=== PATIENT | male | born 1960 | race Caucasian/White ===

== ENCOUNTER 2019-11-30 14:57 | Emergency (ER) | payer OTHER ==
[2019-11-30] MEDS ORDERED: LIDOCAINE 1% MPF 5 ML VIAL ONE (15:21)
[2019-11-30] MEDS ORDERED: BUPIVACAINE 0.5% PF 10 ML VIAL ONE (15:21)
[2019-11-30] MEDS ORDERED: TETANUS & DIPHTHERIA TOX,ADULT 0.5 ML VIAL ONE (15:22)
--- NOTE | 2019-11-30 16:25 | ER ---
Nurse's Notes [facility] Name: Mathew Porter Age: 59 yrs Sex: Male : 1960 Arrival Date: 11/30/2019 Time: 14:58 Bed 4 Private MD: Diagnosis: Laceration without foreign body of left thumb without damage to nail Presentation: 11/29 15:04 Chief complaint: Patient states: Laceration to left thumb while pushing trash down into ll1 trash bag just [employer]. Unknown object that cut him. Bleeding controlled. Coronavirus screen: Client denies travel out of the [place] in the last 14 days. At this time, the client does not indicate any symptoms associated with coronavirus-19. Ebola Screen: Patient denies travel to an Ebola-affected area in the 21 days before illness onset. Initial Sepsis Screen: Does the patient meet any 2 criteria? No. Patient's initial sepsis screen is negative. Risk Assessment: Do you want to hurt yourself or someone else? Patient reports no desire to harm self or others. Onset of symptoms was November 30, 2019. 15:04 Method Of Arrival: Ambulatory ll1 15:04 Acuity: JAMILA 4 ll1 Historical: - Allergies: 15:05 No Known Allergies; ll1 - PMHx: 15:05 Schizophrenia; ll1 - PSHx: 15:05 None; ll1 - Immunization history:: Last tetanus immunization: unknown. - Social history:: Smoking status: Patient reports the use of cigarette tobacco products, smokes three packs cigarettes per day. Patient/guardian denies using alcohol, street drugs. Screenin:17 Abuse screen: Denies threats or abuse. Nutritional screening: No deficits noted. em Tuberculosis screening: No symptoms or risk factors identified. Fall Risk None identified. Assessment: 15:07 General: Appears in no apparent distress. comfortable, Behavior is calm, cooperative, em appropriate for age. Pain: Complains of pain in palmar aspect of proximal phalanx of left thumb and Left first web space Pain currently is 5 out of 10 on a pain scale. Pain began 30 min ago. Neuro: Level of Consciousness is awake, alert, obeys commands, Oriented to person, place, time, situation, Appropriate for age. Cardiovascular: Capillary refill < 3 seconds Patient's skin is warm and dry. Respiratory: Airway is patent Respiratory effort is even, unlabored, Respiratory pattern is regular, symmetrical. Derm: Skin is intact, is healthy with good turgor, Skin is pink, warm \T\ dry. Musculoskeletal: Capillary refill < 3 seconds, Range of motion: intact in all extremities. Injury Description: Laceration sustained to palmar aspect of proximal phalanx of left thumb and Left first web space is 0.5 to 2.5 cm long, bleeding moderately, was sustained 30-60 minutes ago. a small amount of bleeding noted at this time. Vital Signs: 15:04 BP 178 / 111; Pulse 85; Resp 18; Temp 98.9; Pulse Ox 99% ; Pain 5/10; ll1 ED Course: 14:58 Patient arrived in ED. ag5 15:00 Brit Zapata [facility]-C [facility]. kb 15:01 Karsten Coles MD is Attending Physician. kb 15:04 Michael Chahal, RN is Primary Nurse. em 15:05 Triage completed. ll1 15:05 Arm band placed on Patient placed in an exam room, on a stretcher. ll1 15:17 Patient has correct armband on for positive identification. Bed in low position. Call em light in reach. 16:26 No provider procedures requiring assistance completed. Patient did not have IV access em during this emergency room visit. 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 Exp: em 05/21/2021. Lot #: [id number]. } Route: IM; Site: right deltoid; 16:23 Follow up: Response: No adverse reaction em 15:50 Drug: Lidocaine (1 %) 1 vials {Note: administered by MARLENA Perea.} Volume: 5 ml; Route: em Infiltration; Site: wound; 16:00 Follow up: Response: No adverse reaction; Marked relief of symptoms; Pain is decreased em 15:50 Drug: Bupivacaine (0.5 %) 1 vials {Note: administered by MARLENA Perea.} Volume: 10 ml; em Route: Infiltration; Site: wound; 16:00 Follow up: Response: No adverse reaction; Marked relief of symptoms; Pain is decreased em Outcome: 16:24 Discharge ordered by . kb 16:26 Discharged to home ambulatory. em 16:26 Condition: good 16:26 Discharge instructions given to patient, Instructed on discharge instructions, follow up and referral plans. wound care, Demonstrated understanding of instructions, follow-up care, wound care. 16:42 Patient left the ED. em Signatures: Brit Zapata, VANDANA-Rm ROSS-Michael Duvall, RN RN em Maria A Pitts ag5 Brandt Stout RN RN ll1
--- NOTE | 2019-11-30 16:25 | EDPHYS ---
Physician Documentation [facility] Name: Mathew Porter Age: 59 yrs Sex: Male : 1960 Arrival Date: 11/30/2019 Time: 14:58 Bed 4 Private MD: ED Physician Karsten Coles HPI: 11/29 15:22 This 59 yrs old Male presents to ER via Ambulatory with complaints of kb Laceration To Finger. 15:22 The patient has a laceration related to: handling garbage, occurred at home, and there kb are no complicating factors. The injury was accidental. The laceration(s) is(are) located on the left thumb. Onset: The symptoms/episode began/occurred just prior to arrival. Associated signs and symptoms: The patient has no apparent associated signs or symptoms. The patient has not experienced similar symptoms in the past. The patient has not recently seen a physician. Pt reports he was taking out the trash, pushed it down into the can and cut his finger on something inside. Object unknown. Historical: - Allergies: 15:05 No Known Allergies; ll1 - PMHx: 15:05 Schizophrenia; ll1 - PSHx: 15:05 None; ll1 - Immunization history:: Last tetanus immunization: unknown. - Social history:: Smoking status: Patient reports the use of cigarette tobacco products, smokes three packs cigarettes per day. Patient/guardian denies using alcohol, street drugs. ROS: 15:21 Constitutional: Negative for fever, chills, and weight loss, Cardiovascular: Negative kb for chest pain, palpitations, and edema, Respiratory: Negative for shortness of breath, cough, wheezing, and pleuritic chest pain, Abdomen/GI: Negative for abdominal pain, nausea, vomiting, diarrhea, and constipation, Back: Negative for injury and pain, MS/Extremity: Negative for injury and deformity, Neuro: Negative for headache, weakness, numbness, tingling, and seizure. 15:21 Skin: Positive for laceration(s), of the left thumb. Exam: 15:21 Constitutional: This is a well developed, well nourished patient who is awake, alert, kb and in no acute distress. Head/Face: Normocephalic, atraumatic. Chest/axilla: Normal chest wall appearance and motion. Nontender with no deformity. No lesions are appreciated. Cardiovascular: Regular rate and rhythm with a normal S1 and S2. No gallops, murmurs, or rubs. Normal PMI, no JVD. No pulse deficits. Respiratory: Lungs have equal breath sounds bilaterally, clear to auscultation and percussion. No rales, rhonchi or wheezes noted. No increased work of breathing, no retractions or nasal flaring. Abdomen/GI: Soft, non-tender, with normal bowel sounds. No distension or tympany. No guarding or rebound. No evidence of tenderness throughout. MS/ Extremity: Pulses equal, no cyanosis. Neurovascular intact. Full, normal range of motion. Neuro: Awake and alert, GCS 15, oriented to person, place, time, and situation. Cranial nerves II-XII grossly intact. Motor strength 5/5 in all extremities. Sensory grossly intact. Cerebellar exam normal. Normal gait. Vital Signs: 15:04 BP 178 / 111; Pulse 85; Resp 18; Temp 98.9; Pulse Ox 99% ; Pain 5/10; ll1 Procedures: 15:50 Nerve block: (digital) of palmar aspect of proximal phalanx of left thumb Medication: kb Lidocaine 1% without epinephrine Marcaine 0.5%, Amount: 6 mls were injected, Effect: the patient has resolution of the pain, Set up for procedure. Performed by Brit UNDERWOOD Patient tolerated well. Laceration: 16:22 Wound Repair of 2cm ( 0.8in ) subcutaneous laceration to left thumb. Irregularly kb shaped.. Distal neuro/vascular/tendon intact. Anesthesia: Digital block administered with Lido/Marcaine. Wound prep: Extensive cleansing with betadine by me, Wound irrigation with saline by sd. Skin closed with 4 5-0 Prolene using simple sutures and sterile technique. Dressed with pressure dressing. Patient tolerated well. MDM: 15:03 Patient medically screened. kb 15:21 Data reviewed: vital signs, nurses notes. Data interpreted: Pulse oximetry: on room air kb is 99 %. Interpretation: normal. 16:22 Counseling: I had a detailed discussion with the patient and/or guardian regarding: the kb historical points, exam findings, and any diagnostic results supporting the discharge/admit diagnosis, the need for outpatient follow up, a family practitioner, to return to the emergency department if symptoms worsen or persist or if there are any questions or concerns that arise at home. 11/29 15:06 Order name: Prolene, Sutures; Complete Time: 16:23 kb 11/29 15:06 Order name: Dressing - Wound; Complete Time: 16:23 kb 11/29 15:06 Order name: Gloves, Sterile; Complete Time: 16:23 kb 11/29 15:06 Order name: Setup Suture Tray; Complete Time: 15:16 kb Administered Medications: 15:16 Drug: Tetanus-Diphtheria Toxoid Adult 0.5 ml {Family Assistant: [employer]. Exp: em 05/21/2021. Lot #: [id number]. } Route: IM; Site: right deltoid; 16:23 Follow up: Response: No adverse reaction em 15:50 Drug: Lidocaine (1 %) 1 vials {Note: administered by MARLENA Perea.} Volume: 5 ml; Route: em Infiltration; Site: wound; 16:00 Follow up: Response: No adverse reaction; Marked relief of symptoms; Pain is decreased em 15:50 Drug: Bupivacaine (0.5 %) 1 vials {Note: administered by NP. Brit} Volume: 10 ml; em Route: Infiltration; Site: wound; 16:00 Follow up: Response: No adverse reaction; Marked relief of symptoms; Pain is decreased em Disposition: 19:45 Co-signature as Attending Physician, Karsten Coles MD I agree with the assessment and genna plan of care. Disposition: 11/30/19 16:24 Discharged to Home. Impression: Laceration without foreign body of left thumb without damage to nail. - Condition is Stable. - Discharge Instructions: Laceration Care, Adult, [id number]. - Medication Reconciliation Form, Thank You Letter, Antibiotic Education, Prescription Opioid Use form. - Follow up: Emergency Department; When: As needed; Reason: Worsening of condition. Follow up: Private Physician; When: 2 - 3 days; Reason: Recheck today's complaints, Continuance of care, Re-evaluation by your physician. - Notes: Keep dressing on until tomorrow evening, then take off and use bandaid to cover laceration. Wash with soap and water to prevent infection Watch for signs of infection including redness, swelling, drainage, and warmth Keep clean and dry Signatures: Brit Zapata FNP-C FNP-Karsten Salter MD MD cha Munoz, Edgar, RN RN em Brandt Stout RN RN ll1 Corrections: (The following items were deleted from the chart) 16:42 16:24 11/30/2019 16:24 Discharged to Home. Impression: Laceration without foreign body em of left thumb without damage to nail. Condition is Stable. Forms are Medication Reconciliation Form, Thank You Letter, Antibiotic Education, Prescription Opioid Use. Follow up: Emergency Department; When: As needed; Reason: Worsening of condition. Follow up: Private Physician; When: 2 - 3 days; Reason: Recheck today's complaints, Continuance of care, Re-evaluation by your physician. kb
[2019-12-04 15:26] VITALS: BP 178/111; TEMP 98.9; O2SAT 99
== END 2019-11-30 16:42 | disposition home or self-care (01) ==
LOC: ER 14:57
PROC: 0JQK0ZZ Repair Left Hand Subcutaneous Tissue and Fascia, Open Approach (ICD-10-PCS; principal; 2019-11-30)
DX: S61.012A Laceration without foreign body of left thumb without damage to nail, initial encounter (principal); W26.9XXA Contact with unspecified sharp object(s), initial encounter; Y93.89 Activity, other specified; Y92.009 Unspecified place in unspecified non-institutional (private) residence as the place of occurrence of the external cause; Z23 Encounter for immunization
CPT/HCPCS: 64450; 90471; 90714; 99283

== ENCOUNTER 2019-12-14 12:24 | Emergency (ER) | payer OTHER ==
--- NOTE | 2019-12-14 13:02 | ER ---
Nurse's Notes [facility] Name: Mathew Porter Age: 59 yrs Sex: Male : 1960 Arrival Date: 12/14/2019 Time: 12:26 Bed 23 Private MD: Diagnosis: Encounter for removal of sutures-left thumb Presentation: 12/13 12:47 Chief complaint: Patient states: Need stitches removed from left thumb. No redness, ll1 swelling, or fever. Coronavirus screen: Client denies travel out of the [place] in the last 14 days. At this time, the client does not indicate any symptoms associated with coronavirus-19. Ebola Screen: Patient denies travel to an Ebola-affected area in the 21 days before illness onset. Initial Sepsis Screen: Does the patient meet any 2 criteria? No. Patient's initial sepsis screen is negative. Risk Assessment: Do you want to hurt yourself or someone else? Patient reports no desire to harm self or others. Onset of symptoms was November 30, 2019. 12:47 Method Of Arrival: Ambulatory ll1 12:47 Acuity: JAMILA 5 ll1 Historical: - Allergies: 12:46 No Known Allergies; ll1 - PMHx: 12:46 Schizophrenia; ll1 - PSHx: 12:46 None; ll1 - Immunization history:: Flu vaccine is not up to date. - Social history:: Smoking status: Patient reports the use of cigarette tobacco products, smokes one pack cigarettes per day. Patient/guardian denies using alcohol, street drugs. Screenin:52 Abuse screen: Denies threats or abuse. Denies injuries from another. Nutritional hb screening: No deficits noted. Tuberculosis screening: No symptoms or risk factors identified. Fall Risk None identified. Vital Signs: 12:47 BP 161 / 94; Pulse 75; Resp 17; Temp 98.5; Pulse Ox 100% ; Pain 2/10; ll1 ED Course: 12:26 Patient arrived in ED. ds1 12:46 Arm band placed on Patient placed in an exam room, on a stretcher. ll1 12:48 Triage completed. ll1 12:49 Karsten Whitehead PA is PHCP. cp 12:49 Octavio Perez MD is Attending Physician. cp 12:52 Patient has correct armband on for positive identification. Bed in low position. Call hb light in reach. 12:52 Patient did not have IV access during this emergency room visit. hb Administered Medications: No medications were administered Outcome: 13:01 Discharge ordered by . holger 13:24 Patient left the ED. ll1 Signatures: Deanna Woods ds1 Karsten Whitehead PA PA cp Baxter, Heather, RN RN Brandt Stout RN RN ll1
[2019-12-14 18:12] VITALS: BP 161/94; TEMP 98.5; O2SAT 100
--- NOTE | 2019-12-15 13:29 | EDPHYS ---
Physician Documentation [facility] Name: Mathew Porter Age: 59 yrs Sex: Male : 1960 Arrival Date: 12/14/2019 Time: 12:26 Bed 23 Private MD: ED Physician Octavio Perez HPI: 12/13 13:00 This 59 yrs old Male presents to ER via Ambulatory with complaints of Suture cp Removal. 13:00 The patient has sutures on the holt side left thumb. cp 13:00 Previous treatment: The patient was initially treated on November 30, 2019, the care was cp rendered at [facility], Treatment type: The patient's original treatment included sutures. 13:00 Sutures/attila progress: The patient has no c/o's. The wound is well-healing with no cp redness, swelling, discharge, or dehiscence reported. Historical: - Allergies: 12:46 No Known Allergies; ll1 - PMHx: 12:46 Schizophrenia; ll1 - PSHx: 12:46 None; ll1 - Immunization history:: Flu vaccine is not up to date. - Social history:: Smoking status: Patient reports the use of cigarette tobacco products, smokes one pack cigarettes per day. Patient/guardian denies using alcohol, street drugs. ROS: 13:00 All other systems are negative. cp Exam: 13:00 Constitutional: The patient appears in no acute distress, alert, awake, well developed, cp well nourished. 13:00 Cardiovascular: Rate: normal. cp 13:00 Respiratory: the patient does not display signs of respiratory distress, Respirations: normal. 13:00 Skin: Wound recheck: Suture laceration closure: the wound is healing well, the edges are well approximated, no drainage, no erythema, no swelling, mild dehiscence, repaired laceration left thumb holt side. Vital Signs: 12:47 BP 161 / 94; Pulse 75; Resp 17; Temp 98.5; Pulse Ox 100% ; Pain 2/10; ll1 Procedures: 13:05 Suture/Staple removal: Removed 4 sutures, from holt side left thumb, site appears cp well healed, Patient tolerated well. MDM: 13:00 Patient medically screened. cp Administered Medications: No medications were administered Disposition: 16:09 Co-signature as Attending Physician, Octavio Perez MD. rn Disposition: 12/14/19 13:01 Discharged to Home. Impression: Encounter for removal of sutures - left thumb. - Condition is Stable. - Discharge Instructions: Suture Removal, Care After. - Medication Reconciliation Form, Thank You Letter, Antibiotic Education, Prescription Opioid Use form. - Follow up: Private Physician; When: As needed; Reason: Worsening of condition. - Problem is new. - Symptoms have improved. Signatures: Octavio Perez MD MD rn Karsten Whitehead PA PA cp Lewis, Lynsay, RN RN ll1 Corrections: (The following items were deleted from the chart) 13:24 13:01 12/14/2019 13:01 Discharged to Home. Impression: Encounter for removal of sutures ll1 - left thumb. Condition is Stable. Forms are Medication Reconciliation Form, Thank You Letter, Antibiotic Education, Prescription Opioid Use. Follow up: Private Physician; When: As needed; Reason: Worsening of condition. Problem is new. Symptoms have improved. cp
== END 2019-12-14 13:24 | disposition home or self-care (01) ==
LOC: ER 12:24
DX: Z48.02 Encounter for removal of sutures (principal)
CPT/HCPCS: 99281

== ENCOUNTER 2022-10-15 20:04 | Emergency (ER) | payer OTHER ==
[2022-10-15 20:51] LABS: Absolute Lymphocytes (CBC) 0.6 K/uL (0.7-4.9); Hematocrit 37.4 % (39.6-49.0); Lymphocytes % 3.6 % (15.3-44.8); MCV 85.3 fL (80-100); RBC Red Blood Cell Count 4.38 M/uL (4.33-5.43)
[2022-10-15 21:02] LABS: Specific Gravity 1.016 (1.005-1.030); Urine Bacteria 20-50 /HPF (<20); Urine Bilirubin NEGATIVE (Negative); Urine Blood 1+ (Negative); Urine Clarity Extremely Turbid (Clear); Urine Color Yellow (Yellow); Urine Crystals Unidentified Few /HPF (None Seen); Urine Glucose NEGATIVE (Negative); Urine Mucus Slight /HPF (None Seen); Urine Protein 1+ (Negative); Urine Urobilinogen Normal (Normal); Urine WBC Clump Rare /HPF (None Seen)
[2022-10-15 21:12] LABS: Albumin 2.8 g/dL (3.4-5.0); Bilirubin Total 0.8 mg/dL (0.2-1.0); Potassium 4.1 mEq/L (3.5-5.1); Protein, Total 7.1 g/dL (6.4-8.2)
[2022-10-15 21:14] LABS: Protime INR 1.12
--- NOTE | 2022-10-15 21:51 | RAD REPORT ---
EXAM DESCRIPTION: CT - Chest Abd Pelvis Wo Con - 10/15/2022 9:20 pm CLINICAL HISTORY: sob, abdominal pain COMPARISON: No comparisons TECHNIQUE: Thin axial CT images of the chest, abdomen, and pelvis, performed without IV contrast. Mu ltiplanar reformats were generated and reviewed. All CT scans are performed using dose optimization technique as appropriate and may include automated exposure control or mA/KV adjustment according to patient size. FINDINGS: The lungs are clear.No pleural effusion or pneumothorax. Trace pericardial effusion.No int rathoracic adenopathy. The liver, spleen, pancreas, and adrenal glands are within normal limits. Layering hyperdense materi al in the gallbladder, may represent small stones. Severe bilateral hydroureteronephrosis. Tortuous appearance of the left proximal to mid ureter, with fluid tracking along the left perinephric space and tracking caudally along the left aspect of the re troperitoneum and paracolic gutter. No evidence of radiopaque calculi. Tiny punctate mineralization a long the right renal midpole. Severe distention of the urinary bladder. Marked prostatomegaly. No bowel obstruction, free air, free fluid or abscess. Mild wall prominence along the cecum, could re flect segmental colitis. Moderate hiatal hernia. No pathologic lymphadenopathy in the abdomen or pel vis. No worrisome osseous finding. IMPRESSION: Severe bilateral hydroureteronephrosis and marked bladder distention. Fluid tracking liam ng the left retroperitoneum, concerning for a urine leak in the setting of rupture of the left renal collecting system. Marked prostatomegaly. Mild wall prominence along the cecum, could reflect segmental colitis. Other incidental findings including trace pericardial effusion, marked prostatomegaly, and suggestion of small gallstones. The findings were communicated to Jaylen Chi on 10/15/2022 at 21:43 hours.
[2022-10-15] MEDS ORDERED: CEFEPIME 2 GM VIAL ONE (22:09)
[2022-10-15] MEDS ORDERED: NA CHLORIDE 0.9% 100 ML ONE (22:10)
[2022-10-15] MEDS ORDERED: ACETAMINOPHEN 325 MG TABLET ONE (22:10)
[2022-10-16] MEDS ORDERED: NA CHLORIDE 0.9% 1,000 ML ONE (00:09)
[2022-10-16] MEDS ORDERED: D5 0.9 NS 1,000 ML IV ONE (00:09)
--- NOTE | 2022-10-16 01:33 | ER ---
Nurse's Notes [facility] Name: Mathew Porter Age: 62 yrs Sex: Male : 1960 Arrival Date: 10/15/2022 Time: 20:04 Bed 15 Private MD: Diagnosis: Acute renal failure;Ureteral rupture;Post renal obstructive kidney failure Presentation: 10/15 20:31 Chief complaint: Patient's son or daughter states: "Started feeling sick on Friday he vc1 was nauseous with no appetite. He came home Friday and still didn't feel well. He's barely eating and today his stomach looks distended.". Coronavirus screen: Vaccine status: Patient reports receiving the 2nd dose of the covid vaccine. Client denies travel out of the [place] in the last 14 days. At this time, the client does not indicate any symptoms associated with coronavirus-19. Ebola Screen: Patient negative for fever greater than or equal to 101.5 degrees Fahrenheit, and additional compatible Ebola Virus Disease symptoms Patient denies exposure to infectious person. Patient denies travel to an Ebola-affected area in the 21 days before illness onset. No symptoms or risks identified at this time. Initial Sepsis Screen: Does the patient meet any 2 criteria? RR > 20 per min. Temp <36.0*C (96.8*F)) or > 38.3*C (100.9*F). HR > 90 bpm. Yes Does the patient have a suspected source of infection? Yes: Acute abdominal pain. Risk Assessment: Do you want to hurt yourself or someone else? Patient reports no desire to harm self or others. Onset of symptoms was October 12, 2022. 20:31 Method Of Arrival: Ambulatory vc1 20:31 Acuity: JAMILA 3 vc1 Triage Assessment: 20:35 General: Appears in no apparent distress. uncomfortable, Behavior is cooperative, flat. vc1 Pain: Complains of pain in abdomen Pain currently is 0 out of 10 on a pain scale. EENT: No deficits noted. No signs and/or symptoms were reported regarding the EENT system. Neuro: Level of Consciousness is awake, alert, obeys commands, Oriented to person, place, time, situation, Appropriate for age. Cardiovascular: No deficits noted. Respiratory: Airway is patent Respiratory effort is even, unlabored, Respiratory pattern is symmetrical, tachypnea. GI: Abdomen is distended, Reports No appetite since Friday, dry heaving. : No deficits noted. No signs and/or symptoms were reported regarding the genitourinary system. Derm: No deficits noted. No signs and/or symptoms reported regarding the dermatologic system. Musculoskeletal: No deficits noted. No signs and/or symptoms reported regarding the musculoskeletal system. Historical: - Allergies: 20:33 No Known Allergies; vc1 - Home Meds: 20:33 Cogentin Oral 1 mg nightly [Active]; Haldol Oral 10 mg twice a day [Active]; vc1 - PMHx: 20:33 Schizophrenia; vc1 - PSHx: 20:33 None; vc1 - Immunization history:: Client reports receiving the 1st dose of the Covid vaccine. - Social history:: Smoking status: Patient reports the use of cigarette tobacco products, smokes two packs cigarettes per day. Screenin:34 [facility] ED Fall Risk Assessment (Adult) History of falling in the last 3 months, vc1 including since admission No falls in past 3 months (0 pts) Confusion or Disorientation No (0 pts) Intoxicated or Sedated No (0 pts) Impaired Gait No (0 pts) Mobility Assist Device Used No (0 pt) Altered Elimination No (0 pt) Score/Fall Risk Level 0 - 2 = Low Risk Oriented to surroundings, Maintained a safe environment, Educated pt \\T\\ family on fall prevention, incl call for assistance when getting out of bed. Abuse screen: Denies threats or abuse. Nutritional screening:. Nutritional screening: no appetite since friday. Tuberculosis screening: No symptoms or risk factors identified. Assessment: 22:29 Reassessment: No changes from previously documented assessment. Patient and/or family ll3 updated on plan of care and expected duration. Pain level reassessed. Patient is alert, oriented x 3, equal unlabored respirations, skin warm/dry/pink. 23:44 Reassessment: No changes from previously documented assessment. Patient and/or family ll3 updated on plan of care and expected duration. Pain level reassessed. Patient is alert, oriented x 3, equal unlabored respirations, skin warm/dry/pink. Vital Signs: 20:31 BP 158 / 102; Pulse 112; Resp 25; Temp 101.2; Pulse Ox 95% ; Weight 68.04 kg; Pain 0/10;vc1 22:29 BP 153 / 80; Pulse 96; Resp 17; Pulse Ox 98% on R/A; ll3 23:44 BP 141 / 79; Pulse 92; Resp 18; Temp 98.9(O); Pulse Ox 98% on R/A; ll3 10/16 01:17 BP 148 / 79; Pulse 90; Resp 17; Pulse Ox 97% on R/A; ll3 10/15 20:31 Pain Scale: Adult vc1 ED Course: 10/15 20:07 Patient arrived in ED. ja2 20:15 Jaylen Chi PA is PHCP. [facility] 20:15 Jovani Reed MD is Attending Physician. [facility] 20:33 Triage completed. vc1 20:34 Arm band placed on right wrist. vc1 20:35 Patient has correct armband on for positive identification. Bed in low position. Call vc1 light in reach. Client placed on continuous cardiac and pulse oximetry monitoring. NIBP monitoring applied. 20:45 Initial lab(s) drawn, by hi, sent to lab. Inserted saline lock: 20 gauge in right ll3 forearm, using aseptic technique. Blood collected. 21:00 No provider procedures requiring assistance completed. Inserted saline lock: 22 gauge ll3 in right forearm, using aseptic technique. 21:21 Chest Abd Pelvis Wo Con In Process Unspecified. EDMS 22:40 Initiated transfer to [facility], denied due to full capacity. 5 22:44 Initiated transfer to [facility] with Gene chief transfer and pumphouse operator. 5 23:10 Transfer denied due to full capacity. [facility] 23:29 Initiated transfer to [facility] with Abril chief transfer and pumphouse operator. [facility] 10/16 00:07 [facility] denied transfer due to capacity. 5 00:25 Transfer Initiated to [facility] with Loida Khan chief transfer and pumphouse operator. 5 01:01 Transfer accepted to [facility] by Dr. Charlie Jones without Dr to Dr report needed. 5 01:25 Requested transport truck from [facility], ETA of 10 min. 5 02:10 Patient transferred, IV remains in place. 3 Administered Medications: 10/15 22:20 Drug: Cefepime IVPB 2 grams Route: IVPB; Rate: 200 ml/hr; Infused Over: 30 mins; Site: [facility] right forearm; 10/16 02:11 Follow up: Response: No adverse reaction; IV Status: Completed infusion; IV Intake: ll3 100ml 10/15 22:20 Drug: Acetaminophen PO 650 mg Route: PO; ll3 10/16 02:11 Follow up: Response: No adverse reaction; Temperature is decreased ll3 00:08 Drug: D5-NS IV 1000 ml Route: IV; Rate: 125 ml/hr; Site: right forearm; ll3 02:11 Follow up: Response: No adverse reaction; IV Status: Infusion continued upon transfer; ll3 IV Intake: 300ml 00:08 Drug: NS 0.9% IV 1000 ml Route: IV; Rate: 1 bolus; Site: right forearm; ll3 02:10 Follow up: Response: No adverse reaction; IV Status: Completed infusion; IV Intake: ll3 1000ml Medication: 10/15 22:29 VIS not applicable for this client. ll3 Intake: 10/16 02:10 IV: 1000ml; Total: 1000ml. ll3 02:11 IV: 300ml; Total: 1300ml. ll3 02:11 IV: 100ml; Total: 1400ml. ll3 Output: 10/15 22:30 Urine: 2425ml ([place]); Total: 2425ml. ll3 07 01:53 Urine: 1200ml ([place]); Total: 3625ml. ll3 Outcome: 01:32 ER care complete, transfer ordered by . [facility] 02:09 Transferred by ground EMS Transfer form completed. X-rays sent w/ patient. Note: [facility] ll3 [place] 02:09 Condition: stable 02:09 Instructed on the need for transfer, Demonstrated understanding of instructions. 02:12 Patient left the ED. ll3 Signatures: Dispatcher [employer] EDMS Jaylen Chi PA PA jmm Alexander, Jessica ja2 Loubet, Lynsea, RN RN ll3 Rose Mary Fishman RN RN 1 Marlene Ronquillo [facility]
--- NOTE | 2022-10-16 01:33 | EDPHYS ---
Physician Documentation [facility] Name: Mathew Porter Age: 62 yrs Sex: Male : 1960 Arrival Date: 10/15/2022 Time: 20:04 Bed 15 Private MD: ED Physician Jovani Reed HPI: 10/15 20:21 This 62 yrs old Male presents to ER via Ambulatory with complaints of Decreased jmm Appetite, Bloated. 20:21 The patient presents with abdominal distention. Onset: The symptoms/episode jmm began/occurred gradually, 4 day(s) ago. This is a 62-year-old male with history of schizophrenia the presents emerged department with complaints of abdominal distention, decreased oral intake. Daughter stated that the patient initially developed symptoms approximately 4 days ago. Patient drank Gatorade. Denies any vomiting or diarrhea. Daughter states today noticed significant swelling of the patient's abdomen.. Historical: - Allergies: 20:33 No Known Allergies; vc1 - Home Meds: 20:33 Cogentin Oral 1 mg nightly [Active]; Haldol Oral 10 mg twice a day [Active]; vc1 - PMHx: 20:33 Schizophrenia; vc1 - PSHx: 20:33 None; vc1 - Immunization history:: Client reports receiving the 1st dose of the Covid vaccine. - Social history:: Smoking status: Patient reports the use of cigarette tobacco products, smokes two packs cigarettes per day. ROS: 20:21 Constitutional: Negative for fever, chills, and weight loss, Cardiovascular: Negative jmm for chest pain, palpitations, and edema, Respiratory: Negative for shortness of breath, cough, wheezing, and pleuritic chest pain. 20:21 Abdomen/GI: Positive for abdominal pain. 20:21 All other systems are negative. Exam: 20:21 Constitutional: This is a well developed, well nourished patient who is awake, alert, jmm and in no acute distress. Head/Face: atraumatic. Eyes: EOMI, no conjunctival erythema appreciated ENT: Moist Mucus Membranes Neck: Trachea midline, Supple Chest/axilla: Normal chest wall appearance and motion. Cardiovascular: Regular rate and rhythm. No edema appreciated Respiratory: Normal respirations, no respiratory distress appreciated 20:21 Back: Normal ROM Skin: General appearance color normal MS/ Extremity: Moves all extremities, no obvious deformities appreciated, no edema noted to the lower extremities Neuro: Awake and alert Psych: Behavior is normal, Mood is normal, Patient is cooperative and pleasant 20:21 Abdomen/GI: Inspection: distension, that is moderate. Vital Signs: 20:31 BP 158 / 102; Pulse 112; Resp 25; Temp 101.2; Pulse Ox 95% ; Weight 68.04 kg; Pain 0/10;vc1 22:29 BP 153 / 80; Pulse 96; Resp 17; Pulse Ox 98% on R/A; ll3 23:44 BP 141 / 79; Pulse 92; Resp 18; Temp 98.9(O); Pulse Ox 98% on R/A; 3 10/16 01:17 BP 148 / 79; Pulse 90; Resp 17; Pulse Ox 97% on R/A; 3 10/15 20:31 Pain Scale: Adult vc1 MDM: 10/15 20:21 Patient medically screened. [facility] 20:21 Differential diagnosis: bowel obstruction, Mesenteric ischemia or infarction, [facility] non-specific abd pain, Perf. Duodenal Ulcer, Perf. Gastric Ulcer, Ureterolithiasis. Data reviewed: vital signs, nurses notes. 10/16 01:28 Counseling: I had a detailed discussion with the patient and/or guardian regarding: the [facility] historical points, exam findings, and any diagnostic results supporting the discharge/admit diagnosis, lab results, radiology results, the need to transfer to another facility. ED course: Dr. Reed evaluated the patient. Inserted johns catheter. Recommended transfer due to concerns for ruptured ureter. Patient was initially declined from [facility] due to capacity. Patient was accepted at [facility]. . 10/15 20:23 Order name: CBC with Diff; Complete Time: 21:17 [facility] 10/15 20:23 Order name: CMP; Complete Time: 21:17 [facility] 10/15 20:23 Order name: Lipase; Complete Time: 21:17 [facility] 10/15 20:23 Order name: Urinalysis w/ reflexes; Complete Time: 21:17 [facility] 10/15 20:30 Order name: Lactate w/ 2H reflex if indic.; Complete Time: 21:21 [facility] 10/15 20:30 Order name: Blood Culture Adult (2) [facility] 10/15 20:36 Order name: PT-INR; Complete Time: 21:17 [facility] 10/15 21:05 Order name: Urine Culture [facility] 10/15 23:38 Order name: CREATININE WHOLE BLOOD; Complete Time: 23:39 [facility] 10/15 21:21 Order name: Chest Abd Pelvis Wo Con; Complete Time: 21:52 [facility] 10/15 20:23 Order name: IV Saline Lock; Complete Time: 20:44 [facility] 10/15 20:23 Order name: Labs collected and sent; Complete Time: 20:52 [facility] 10/15 21:43 Order name: Johns; Complete Time: 21:50 [facility] Administered Medications: 10/15 22:20 Drug: Cefepime IVPB 2 grams Route: IVPB; Rate: 200 ml/hr; Infused Over: 30 mins; Site: ll3 right forearm; 10/16 02:11 Follow up: Response: No adverse reaction; IV Status: Completed infusion; IV Intake: ll3 100ml 10/15 22:20 Drug: Acetaminophen PO 650 mg Route: PO; ll3 10/16 02:11 Follow up: Response: No adverse reaction; Temperature is decreased ll3 00:08 Drug: D5-NS IV 1000 ml Route: IV; Rate: 125 ml/hr; Site: right forearm; ll3 02:11 Follow up: Response: No adverse reaction; IV Status: Infusion continued upon transfer; ll3 IV Intake: 300ml 00:08 Drug: NS 0.9% IV 1000 ml Route: IV; Rate: 1 bolus; Site: right forearm; ll3 02:10 Follow up: Response: No adverse reaction; IV Status: Completed infusion; IV Intake: ll3 1000ml Disposition: 02:13 Co-signature as Attending Physician, Jovani Reed MD I agree with the assessment sp4 and plan of care. I reviewed the patient's care provided by the Advanced Practice Provider and agree with the diagnosis and treatment plan. Disposition Summary: 10/16/22 01:32 Transfer Ordered Transfer Location: Other Acute Care Facility [facility] Reason: Higher level of care jmm Condition: Stable jmm Problem: new jmm Symptoms: have improved jmm Accepting Physician: Urology(10/16/22 02:12) ll3 Diagnosis - Acute renal failure jmm - Postobstructive diuresis jmm - Ureteral rupture jmm - Post renal obstructive kidney failure jmm Discharge Instructions: - Discharge Summary Sheet ll3 Forms: - Medication Reconciliation Form [facility] - SBAR form ll3 Signatures: Dispatcher [employer] EDVA Jaylen Chi PA PA jmm Loubet, Lynsea, RN RN ll3 Rose Mary Fishman RN RN vc1 Jovani Reed MD MD sp4 Corrections: (The following items were deleted from the chart) 10/15 20:35 20:23 Abdomen Pelvis W Con+CT.RAD.BRZ ordered. [facility] 21:21 20:30 Chest Abdomen Pelvis W Con+CT.RAD.BRZ ordered. [facility] 10/16 01:33 01:32 Urology [facility] 02:12 01:33 Urology [facility]3
[2022-10-16 02:38] VITALS: TEMP 98.9
[2022-10-16 02:42] VITALS: BP 148/79; O2SAT 97
== END 2022-10-16 02:12 ==
LOC: ER 20:04
DX: N17.9 Acute kidney failure, unspecified (principal); R35.89 Other polyuria; S37.19XA Other injury of ureter, initial encounter; N13.9 Obstructive and reflux uropathy, unspecified; F17.210 Nicotine dependence, cigarettes, uncomplicated; F20.9 Schizophrenia, unspecified
CPT/HCPCS: 87040 ×2; 87088; 85025; 81001; 87086; 36415; 87205; 85610; 82565; 83605; 83690; 80053; 71250; 74176; J0692; J7042; J7030

== ENCOUNTER 2022-11-08 17:50 | Emergency (ER) | payer OTHER ==
--- OUTSIDE RECORDS SUMMARY | 2022-11-08 17:56 | XMS REPORT | Continuity of Care Document ---
:1960 Author Organization [facility] t Address [address] [facility] [address] [place] [address] Care Team Providers Name Role Phone Salinas Alba I Attending Clinician Unavailable Salinas Alba I Admitting Clinician Unavailable Physician, No Primary or Family Admitting Clinician Unavaila ble Payers Payer Name Policy Type Policy Number Effective Date Expiration Date S ource Problems This patient has no known problems. Allergies, Adverse Reactions, Alerts Allergy Allergy Status Severity Reaction(s) Onset Inactive Treating Comm ents Source Name Type Date Date Clinician No Known DA Active [facility] [place] [facility] 00 [facility] Medications This patient has no known medications. Procedures This patient has no known procedures. Encounters Start End Encounter Admission Attending Care Care Encounter Source Date/Time Date/Time Type Type Clinicians Facility Department ID 2022-10-16 2022-10-26 Inpatient EM Fernanda [facility] MEDI.01 [id number] 90 [facility] 05:03:00 19:41:00 Salinas Dukes 28 Cl [facility] Results Test Description Test Time Test Comments Results Result Comments Source BASIC METABOLIC PANEL 2022-10-31 08:30:00 Test Item Value Reference Range Interpretation Comme nts SODIUM (test code = NA) 140 mEq/L 134-147 N POTASSIUM (test code = K) 2.8 mEq/L 3.4-5.0 LL Cr itical [place] [address]/16/22Nurse r ead back resut and tech confirmed it's correct? Y CHLORIDE (test code = CL) 114 mEq/L 100-108 H CARBON DIOXIDE (test code = 18 mEq/l 21-33 L CO2) ANION GAP (test code = GAP) 11 0-20 N GLUCOSE (test code = GLU) 643 mg/dL 70-110 HH Cr [place] [address]/16[place]22[facility] [place] tech confirmed it's correct? Y BLOOD UREA NITROGEN (test code 41 mg/dL 7-18 H = BUN) GLOMERULAR FILTRATION RATE 34.7 80-90 L T he Glomerular Filtration Rate is (test code = GFR) a calculat ed parameterbased on serum Creatinin e, patient age and sex. GFR values less than 60 mL/min/1.73 squ are meters are indicative ofCh ronic Kidney Disease. Values less than 15 mL/min/1.73squa re meters indicate Kidney failure. The calculation forGFR is based on the CKD-EPI (2020) calculat ion. This formulais race indifferent and is the recommended formula for GFRby the National dney Foundation for Adults.The GFR will not calculate if th e sex is unknown or if thepatien t's age is <18 years. CREATININE (test code = CREAT) 2.1 mg/dL 0.6-1.3 H CALCIUM (test code = CA) 4.9 mg/dL 8.0-10.5 LL Cri [place]ical [place] [address]/16/22 r ead back result and tech confir med it's correct? YPreviously rep orted result: 4.9 mg/dLEdited by: KRISTEN on 10/31/22:[id number] 0829: CA previously repo rted as: 4.9 *L mg/dL Critical result [place] [address]/16/22 Nurse read back result and tech confirmed it's correct? Y GLUCOSE [id number] 17:27:00 Test Item Value Reference Range Interpretation Comments GLUCOSE BEDSIDE (test 109 MG/DL 70-110 N Perfor med by certified code = GLUBED) 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 [facility] GLUCOSE [id number] 12:34:00 Test Item Value Reference Range Interpretation Comments GLUCOSE BEDSIDE (test 95 MG/DL 70-110 N Perfor med by certified code = GLUBED) 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 [facility] GLUCOSE [id number] 08:49:00 Test Item Value Reference Range Interpretation Comments GLUCOSE BEDSIDE (test 117 MG/DL 70-110 H Perfor med by certified code = GLUBED) 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 [facility] BASIC METABOLIC [id number] 07:57:00 Test Item Value Reference Range Interpretation Comments SODIUM (test code = 140 mEq/L 134-147 N NA) POTASSIUM (test code 4.5 mEq/L 3.4-5.0 N = K) CHLORIDE (test code 107 mEq/L 100-108 N = CL) CARBON DIOXIDE (test 30 mEq/l 21-33 N code = CO2) ANION GAP (test code 8 0-20 N = GAP) GLUCOSE (test code = 91 mg/dL 70-110 N GLU) BLOOD UREA NITROGEN 18 mg/dL 7-18 N (test code = BUN) GLOMERULAR 84.6 80-90 N The Glomerular FILTRATION RATE Filtration R ate is a (test code = GFR) calculated parameterbased on serum Creatinine, pat ient age and sex. GFR va luesless than 60 mL/min/ 1.73 square meters a re indicative ofCh ronic Kidney Disease. Values less than 15 mL/min/1.73squa re meters indicate Kidney failure. The calculation forGFR is based on the CKD-EPI (2020) calculat ion. This formulais race indifferent and is the recommended for jose miguel for GFRby the [facility] on for Adults.The GFR will not calculate if th e sex is unknown or if thepatient's ag e is <18 years. CREATININE (test 1.0 mg/dL 0.6-1.3 N code = CREAT) CALCIUM (test code = 8.1 mg/dL 8.0-10.5 N CA) GLUCOSE [id number] 17:07:00 Test Item Value Reference Range Interpretation Comments GLUCOSE BEDSIDE (test 127 MG/DL 70-110 H Perfor med by certified code = GLUBED) 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 [facility] GLUCOSE [id number] 12:26:00 Test Item Value Reference Range Interpretation Comments GLUCOSE BEDSIDE (test 123 MG/DL 70-110 H Perfor med by certified code = GLUBED) 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 [facility] GLUCOSE [id number] 07:59:00 Test Item Value Reference Range Interpretation Comments GLUCOSE BEDSIDE (test 92 MG/DL 70-110 N Perfor med by certified code = GLUBED) 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 [facility] BASIC METABOLIC [id number] 07:38:00 Test Item Value Reference Range Interpretation Comments SODIUM (test code = 138 mEq/L 134-147 N NA) POTASSIUM (test code 4.0 mEq/L 3.4-5.0 N = K) CHLORIDE (test code 108 mEq/L 100-108 N = CL) CARBON DIOXIDE (test 27 mEq/l 21-33 N code = CO2) ANION GAP (test code 7 0-20 N = GAP) GLUCOSE (test code = 80 mg/dL 70-110 N GLU) BLOOD UREA NITROGEN 14 mg/dL 7-18 N (test code = BUN) GLOMERULAR 96.0 80-90 H The Glomerular FILTRATION RATE Filtration R ate is a (test code = GFR) calculated parameterbased on serum Creatinine, pat ient age and sex. GFR va luesless than 60 mL/min/ 1.73 square meters a re indicative ofCh ronic Kidney Disease. Values less than 15 mL/min/1.73squa re meters indicate Kidney failure. The calculation forGFR is based on the CKD-EPI (2020) calculat ion. This formulais race indifferent and is the recommended for jose miguel for GFRby the [facility] on for Adults.The GFR will not calculate if th e sex is unknown or if thepatient's ag e is <18 years. CREATININE (test 0.9 mg/dL 0.6-1.3 N code = CREAT) CALCIUM (test code = 7.8 mg/dL 8.0-10.5 L CA) CBC W/AUTO [id number] 07:27:00 Test Item Value Reference Range Interpretation Comments WHITE BLOOD CELL (test code = 15.1 x10 3/uL 4.5-11.0 H WBC) RED BLOOD CELL (test code = 4.39 x10 6/uL 4.00-5.60 N RBC) HEMOGLOBIN (test code = HGB) 12.6 g/dL 12.5-16.9 N HEMATOCRIT (test code = HCT) 39.1 % 37.5-50.7 N MEAN CELL VOLUME (test code = 89.1 fL 81.0-99.0 N MCV) MEAN CELL HGB (test code = 28.7 pg 27.0-33.0 N MCH) MEAN CELL HGB CONCETRATION 32.2 g/dL 33.0-37.0 L (test code = MCHC) RED CELL DISTRIBUTION WIDTH CV 13.8 % 11.5-14.5 N (test code = RDW) RED CELL DISTRIBUTION WIDTH SD 45.3 fL 37.0-54.0 N (test code = RDW-SD) PLATELET COUNT (test code = 421 x10 3/uL 150-400 H PLT) MEAN PLATELET VOLUME (test 9.3 fL 7.0-9.0 H code = MPV) NEUTROPHIL % (test code = NT%) 81.1 % 56.0-77.0 H IMMATURE GRANULOCYTE % (test 1.0 % 0.0-2.0 N code = IG%) LYMPHOCYTE % (test code = LY%) 10.6 % 14.0-32.0 L MONOCYTE % (test code = MO%) 4.4 % 4.8-9.0 L EOSINOPHIL % (test code = EO%) 2.4 % 0.3-3.7 N BASOPHIL % (test code = BA%) 0.5 % 0.0-2.0 N NUCLEATED RBC % (test code = 0.0 % 0-0 N NRBC%) NEUTROPHIL # (test code = NT#) 12.30 x10 3/uL 2.0-7.6 H IMMATURE GRANULOCYTE # (test 0.15 x10 3/uL 0.00-0.03 H code = IG#) LYMPHOCYTE # (test code = LY#) 1.60 x10 3/uL 1.0-3.8 N MONOCYTE # (test code = MO#) 0.66 x10 3/uL 0.1-0.8 N EOSINOPHIL # (test code = EO#) 0.36 x10 3/uL 0.0-0.2 H BASOPHIL # (test code = BA#) 0.07 x10 3/uL 0.0-0.2 N NUCLEATED RBC # (test code = 0.00 x10 3/uL 0.0-0.1 N NRBC#) MANUAL DIFF REQUIRED (test NO code = MDIFF) GLUCOSE [id number] 21:25:00 Test Item Value Reference Range Interpretation Comments GLUCOSE BEDSIDE (test 154 MG/DL 70-110 H Perfor med by certified code = GLUBED) 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 [facility] GLUCOSE [id number] 17:43:00 Test Item Value Reference Range Interpretation Comments GLUCOSE BEDSIDE (test 73 MG/DL 70-110 N Perfor med by certified code = GLUBED) 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 [facility] GLUCOSE [id number] 10:08:00 Test Item Value Reference Range Interpretation Comments GLUCOSE BEDSIDE (test 87 MG/DL 70-110 N Perfor med by certified code = GLUBED) 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 [facility] GLUCOSE [id number] 20:12:00 Test Item Value Reference Range Interpretation Comments GLUCOSE BEDSIDE (test 139 MG/DL 70-110 H Perfor med by certified code = GLUBED) 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 [facility] GLUCOSE [id number] 17:32:00 Test Item Value Reference Range Interpretation Comments GLUCOSE BEDSIDE (test 79 MG/DL 70-110 N Perfor med by certified code = GLUBED) 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 [facility] GLUCOSE [id number] 12:14:00 Test Item Value Reference Range Interpretation Comments GLUCOSE BEDSIDE (test 98 MG/DL 70-110 N Perfor med by certified code = GLUBED) 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 [facility] GLUCOSE [id number] 08:36:00 Test Item Value Reference Range Interpretation Comments GLUCOSE BEDSIDE (test 92 MG/DL 70-110 N Perfor med by certified code = GLUBED) 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 [facility] BASIC METABOLIC [id number] 07:50:00 Test Item Value Reference Range Interpretation Comments SODIUM (test code = 138 mEq/L 134-147 N NA) POTASSIUM (test code 3.8 mEq/L 3.4-5.0 N = K) CHLORIDE (test code 107 mEq/L 100-108 N = CL) CARBON DIOXIDE (test 29 mEq/l 21-33 N code = CO2) ANION GAP (test code 6 0-20 N = GAP) GLUCOSE (test code = 98 mg/dL 70-110 N GLU) BLOOD UREA NITROGEN 11 mg/dL 7-18 N (test code = BUN) GLOMERULAR 84.6 80-90 N The Glomerular FILTRATION RATE Filtration R ate is a (test code = GFR) calculated parameterbased on serum Creatinine, pat ient age and sex. GFR va luesless than 60 mL/min/ 1.73 square meters a re indicative ofCh ronic Kidney Disease. Values less than 15 mL/min/1.73squa re meters indicate Kidney failure. The calculation forGFR is based on the CKD-EPI (2020) calculat ion. This formulais race indifferent and is the recommended for jose miguel for GFRby the [facility] on for Adults.The GFR will not calculate if th e sex is unknown or if thepatient's ag e is <18 years. CREATININE (test 1.0 mg/dL 0.6-1.3 N code = CREAT) CALCIUM (test code = 7.6 mg/dL 8.0-10.5 L CA) [id number] 07:50:00 Test Item Value Reference Range Interpretation Comments MAGNESIUM (test code = MAG) 1.53 mg/dL 1.80-2.40 L - CTA CHEST FOR [id number] 00:00:00 [facility] 1960 Sex: M Name: MATHEW CASTILLO [facility] : 1960 Age/S: 62 / M [address] [place] [address] BlvdUnit #: [id number] Loc: [facility] GREG [address] Phys: Sofia Cheng QA TEST LEAD Acct: [id number] Dis Date: Status: ADM IN PHONE #: [phone] Exam Date: 10/23/2022 1724 FAX #: [phone] Reason: ELEVATED D DIMER EXAMS: CPT CODE: [id number] [place] [id number] PROCEDURE INFORMATION: Exam: CTA Chest With Con trast Exam date and time: 10/23/2022 5:24 PM Age: 62 years old Clinical indication: Condition or disease; Other: Elevated d dimer TECHNIQUE: Imaging protocol: Computed tomographic angiography of the chest with contrast. Exam focused on the arteries. 3D rendering (Not supervised by radiologist): MIP and/ or 3D reconstructed images were created by the technologist. Radiation optimization: [facility] use at least one of these dose optimization techniques: automated exposure control; mAand/or kV adjustment per patient size (includes targeted exams where dose is matched to clinical jennifer cation); or iterative reconstruction. Contrast material: ISOVUE; Contrast volume: 100 ml; Contrast route: INTRAVENOUS (IV); REPORTING DATA: Count of CT and Cardiac NM exams in prior 12 months: This patient has received [address] and 0 known cardiac nuclear medicine studies in the 12 months prior to the current study. COMPARISON: CT CHEST W/CONTRAST, CT ABD PELVIS W/CONT 10/15/2022 9:14 PM FINDINGS: Pulmonary arteries: No pulmonary embolus. Aorta: Unremarkable. No aortic aneurysm. No aortic dissection. Lungs: Left lower lobe atelectasis. Biapical parenchymal scarring. Left upper lobe bronchiectasis. Pleural spaces: Small right pleural effusion with right lower lobe atelectasis. Heart: Minimal anterior pericardial effusion. Lymph nodes: Unremarkable. No enlarged lymph nodes. Diaphragm: Type 4 hiatal hernia measures 7.6 cm X 6.5 cm. Stomach and bowel: Gastric fundal wall thickening, correlation with recent endoscopy is recommended to help exclude an infiltrating mucosal process. Extensive colonic wall thickening of the visualized splenic flexure compatible with colitis incompletely evaluated. Bones/joints: Unremarkable. No acute fracture. Soft tissues: Unremarkable. Other findings: Thoracic spurring. IMPRESSION: 1. No pulmonary embolus. 2. Extensive colonic wall thickening of the visualized spl enic PAGE 1 Signed Report (CONTINUED) Name: MATHEW CASTILLO [facility] : 1960 Age/S: 62 / M [address] [place] [address] Unit #: [id number] Loc: [place] [address] Phys: Sofia Cheng NP Acct: [id number] Dis Date: Status: ADM IN PHONE #: [phone] Exam Date: 10/23/2022 172 FAX #: [phone] Reason: ELEVATED D DIMER EXAMS: CPT CODE: [id number] [place] [id number] (Continued)flexure compatible with colitis incompletely evaluated. 3. Small right pleural effusion with right lower lobe atelectasis. 4. Left upper lobe bronchiectasis. 5. Minimal anterior pericardial effusion. 6. Type 4 hiatal hernia measures 7.6 cm X 6.5 cm. 7. Gastric fundal wall thickening, correlation withrecent endoscopy is recommended to help exclude an infiltrating mucosal process. at 2012 Reported and signed by: Hayden Rg M.D. CC: Sofia Cheng QA TEST LEAD; Salinas Dukes MD Technologist:Latoya Pérez RT(R)(CT); . CTDI: DLP: Trnscb Date/Time: 10/23/2022 (2012) [email or web address] Orig Print D/T: S: 10/23/2022 (2012) PAGE 2 Signed ReportGLUCOSE [id number] 20:23:00 Test Item Value Reference Range Interpretation Comments GLUCOSE BEDSIDE (test 123 MG/DL 70-110 H Perfor med by certified code = GLUBED) 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 [facility] GLUCOSE [id number] 17:34:00 Test Item Value Reference Range Interpretation Comments GLUCOSE BEDSIDE (test 132 MG/DL 70-110 H Perfor med by certified code = GLUBED) 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 [facility] GLUCOSE [id number] 11:57:00 Test Item Value Reference Range Interpretation Comments GLUCOSE BEDSIDE (test 118 MG/DL 70-110 H Perfor med by certified code = GLUBED) 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 [facility] GLUCOSE [id number] 08:22:00 Test Item Value Reference Range Interpretation Comments GLUCOSE BEDSIDE (test 100 MG/DL 70-110 N Perfor med by certified code = GLUBED) 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 [facility] BASIC METABOLIC [id number] 08:05:00 Test Item Value Reference Range Interpretation Comments SODIUM (test code = 139 mEq/L 134-147 N NA) POTASSIUM (test code 4.0 mEq/L 3.4-5.0 = K) CHLORIDE (test code 107 mEq/L 100-108 N = CL) CARBON DIOXIDE (test 30 mEq/l 21-33 N code = CO2) ANION GAP (test code 6 0-20 N = GAP) GLUCOSE (test code = 102 mg/dL 70-110 N GLU) BLOOD UREA NITROGEN 12 mg/dL 7-18 N (test code = BUN) GLOMERULAR 75.4 80-90 L The Glomerular FILTRATION RATE Filtration R ate is a (test code = GFR) calculated parameterbased on serum Creatinine, pat ient age and sex. GFR va luesless than 60 mL/min/ 1.73 square meters a re indicative ofCh ronic Kidney Disease. Values less than 15 mL/min/1.73squa re meters indicate Kidney failure. The calculation forGFR is based on the CKD-EPI (2020) calculat ion. This formulais race indifferent and is the recommended for jose miguel for GFRby the [facility] on for Adults.The GFR will not calculate if th e sex is unknown or if thepatient's ag e is <18 years. CREATININE (test 1.1 mg/dL 0.6-1.3 N code = CREAT) CALCIUM (test code = 7.8 mg/dL 8.0-10.5 L CA) [id number] 08:05:00 Test Item Value Reference Range Interpretation Comments MAGNESIUM (test code = MAG) 1.72 mg/dL 1.80-2.40 L GLUCOSE [id number] 21:10:00 Test Item Value Reference Range Interpretation Comments GLUCOSE BEDSIDE (test 148 MG/DL 70-110 H Perfor med by certified code = GLUBED) 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 [facility] GLUCOSE [id number] 17:29:00 Test Item Value Reference Range Interpretation Comments GLUCOSE BEDSIDE (test 102 MG/DL 70-110 N Perfor med by certified code = GLUBED) 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 [facility] GLUCOSE [id number] 11:54:00 Test Item Value Reference Range Interpretation Comments GLUCOSE BEDSIDE (test 104 MG/DL 70-110 N Perfor med by certified code = GLUBED) 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 [facility] CBC W/MANUAL [id number] 10:35:00 Test Item Value Reference Range Interpretation Comments WHITE BLOOD CELL (test code 13.9 x10 3/uL 4.5-11.0 H = WBC) RED BLOOD CELL (test code = 3.97 x10 6/uL 4.00-5.60 L RBC) HEMOGLOBIN (test code = 11.6 g/dL 12.5-16.9 L HGB) HEMATOCRIT (test code = 34.9 % 37.5-50.7 L HCT) MEAN CELL VOLUME (test code 87.9 fL 81.0-99.0 N = MCV) MEAN CELL HGB (test code = 29.2 pg 27.0-33.0 N MCH) MEAN CELL HGB CONCETRATION 33.2 g/dL 33.0-37.0 N (test code = MCHC) RED CELL DISTRIBUTION WIDTH 13.9 % 11.5-14.5 N CV (test code = RDW) RED CELL DISTRIBUTION WIDTH 44.5 fL 37.0-54.0 N SD (test code = RDW-SD) PLATELET COUNT (test code = 321 x10 3/uL 150-400 N PLT) MEAN PLATELET VOLUME (test 9.1 fL 7.0-9.0 H code = MPV) BAND NEUTROPHIL (test code 8.0 % 0.0-10.0 N = BAND) ANISOCYTOSIS (test code = NORMAL ANISO) PLATELET ESTIMATE (test Adequate THOUSAND ADEQUATE code = PLTEST) SEGMENTED NEUTROPHILS (test 78 % 37-69 H code = SEG) LYMPHOCYTE (test code = 8 % 23-55 L LYMPH) MONOCYTE (test code = MON) 4 % 0-10 N EOSINOPHIL (test code = 2 % 0.0-4.0 N EOS) PLATELET MORPHOLOGY (test LARGE PLATELETS code = PLTMORPH) GLUCOSE [id number] 07:57:00 Test Item Value Reference Range Interpretation Comments GLUCOSE BEDSIDE (test 95 MG/DL 70-110 N [facility] med by certified code = GLUBED) 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 [facility] C REACTIVE [id number] 07:48:00 Test Item Value Reference Range Interpretation Comments C REACTIVE PROTEIN (test code = 36.0 mg/L <10.0 H CRP) BASIC METABOLIC [id number] 07:40:00 Test Item Value Reference Range Interpretation Comments SODIUM (test code = 140 mEq/L 134-147 N NA) POTASSIUM (test code 3.0 mEq/L 3.4-5.0 L = K) CHLORIDE (test code 105 mEq/L 100-108 N = CL) CARBON DIOXIDE (test 29 mEq/l 21-33 code = CO2) ANION GAP (test code 9 0-20 N = GAP) GLUCOSE (test code = 89 mg/dL 70-110 N GLU) BLOOD UREA NITROGEN 10 mg/dL 7-18 N (test code = BUN) GLOMERULAR 96.0 80-90 H The Glomerular FILTRATION RATE Filtration R ate is a (test code = GFR) calculated parameterbased on serum Creatinine, pat ient age and sex. GFR va luesless than 60 mL/min/ 1.73 square meters a re indicative ofCh ronic Kidney Disease. Values less than 15 mL/min/1.73squa re meters indicate Kidney failure. The calculation forGFR is based on the CKD-EPI (2020) calculat ion. This formulais race indifferent and is the recommended for jose miguel for GFRby the [facility] on for Adults.The GFR will not calculate if th e sex is unknown or if thepatient's ag e is <18 years. CREATININE (test 0.9 mg/dL 0.6-1.3 N code = CREAT) CALCIUM (test code = 7.3 mg/dL 8.0-10.5 L CA) [id number] 07:40:00 Test Item Value Reference Range Interpretation Comments MAGNESIUM (test code = MAG) 1.50 mg/dL 1.80-2.40 L [id number] 07:04:00 Test Item Value Reference Range Interpretation Comments D-DIMER (test 5949 ng/mlFEU See_Comment HH Critical resu lt called to code = Jennifer RUIZ y G.LAB.JJ1 DDIMER) at 700 3Nurse read back result and tech confirmed it's correct? YESTHROMBOSIS A ND/OR PULMONARY EMBOL ISM AND THE CLINICAL CUT- O FF VALUE FOR EXCLUSION (500 ng/mL FEU) OF THESE CONDIT IONSIS VALIDATED BY TH E BOARD FINISHER OF THE METHOD. A NEGATIVE D-DI JET RESULT WHEN COMBINED W ITH A CLINICALASSESSM ENT OF LOW PRETEST PROBABI LITY HAS BEEN SHOWN TO H AVEA HIGH NEGATIVE PREDIC TIVE VALUE OF DVT OR PE. D -DIMER VALUES >500 ng/ mL FEU ARE NOT DIAGNOSTIC FOR DVT, PEor DIC WITHOU T OTHER CONFIRMATORY TE STS AND APPROPRIATECLIN ICAL EUALUATIONS. [A utomated message] The sy stem which generated this result transmitted ref erence range: <=500. T he reference range was not u sed to interpret this result as normal/abnormal . - DUP VEIN [id number] 00:00:00 [facility] [place] : 1960 Sex: M Name: MATHEW CASTILLO [facility] : 1960 Age/S: 62 / M [address] Unit #: [id number] Loc: [place] [address] Phys: Skip Jaffe MD Acct: [id number] Dis Date: Status: ADM IN PHONE #: [phone] Exam Date: 10/21/2022820 FAX #: [phone] Reason: R/o DVT EXAMS:CPT CODE: [id number] DUP VEIN ASAEL [id number] PROCEDURE INFORMATION: Exam: US Duplex Lower Extremity Veins, Bilateral Exam date and time: 10/21/2022 7:49 AM Age: 62 years old Clinical indication: Screening exam; Fever, leukocytosis; Additional info: R/O dvt TECHNIQUE: Imaging protocol: Real-time duplex ultrasound of the bilateral extremities with 2-D bateman scale, color Doppler flow and spectral waveform fidencio sis including responses to compression and other maneuvers (when performed) with image documentation. Complete exam focused on the lower extremity veins. COMPARISON: CT CHEST W/CONTRAST, CT ABD PELVIS W/CONT 10/15/2022 9:14 PM FINDINGS: Right deep veins: Unremarkable. The common femoral, femoral, proximal profunda femoral, popliteal, and posterior tibial veins are patent without thrombus. Normal Doppler waveforms. Normal compressibility and/or augmentation response. Right superficial veins: Saphenofemoral junction is patent without thrombus. Left deep veins: Unremarkable. The common femoral, femoral, proximal profunda femoral, popliteal, and posterior tibial veins are patent without thrombus. Normal Doppler waveforms. Normal compressibility and/or augmentation response. Left superficial veins: Saphenofemoral junction is patent without thrombus. Soft tissues: Unremarkable. IMPRESSION: No sonographic evidence for DVT at 0912 Reported and signed by: Ld Ac M.D. CC: Skip Jaffe MD; Salinas Dukes MD Technologist: [facility]ica Baker [facility] Date/Time: 10/21/2022 (911) [id number] Orig Print D/T: S: 10/21/2022 (911) Probe: PAGE 1 Signed Report GLUCOSE [id number] 20:40:00 Test Item Value Reference Range Interpretation Comments GLUCOSE BEDSIDE (test 148 MG/DL 70-110 H Perfor med by certified code = GLUBED) 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 [facility] GLUCOSE [id number] 16:46:00 Test Item Value Reference Range Interpretation Comments GLUCOSE BEDSIDE (test 118 MG/DL 70-110 H Perfor med by certified code = GLUBED) 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 [facility] GLUCOSE [id number] 16:46:00 Test Item Value Reference Range Interpretation Comments GLUCOSE BEDSIDE (test 122 MG/DL 70-110 H Perfor med by certified code = GLUBED) 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 [facility] TROP-I HIGH [id number] 15:04:00 Test Item Value Reference Range Interpretation Comments TROP-I HIGH < 3 ng/L 0-54 N CAUTION: Units of the SENSITIVITY (test current te st methodology code = TROPIHS) (ng/L) diffe rfrom the prior test meth odology (ng/mL) by a fa ctor of 1000. 99t h Percentile Uppe r Reference Limit (URL): Fe males: 34 ng/LMales: 54 n g/L In order to distin guish acute elevations of h igh sensitivitytrop onin from other clinical conditions, the FourthUnive rsal Definition of M yocardial Infarction stressesclinica l assessment and the demonstration o f a rise and/orfall in s erial troponin result s above the URL. These resu lts were obtained using Siemens AtellSceneShot IM TnI Hreagent. Results from di fferent methodologies s hould not becompared to o ne another as quantitative results and URLs mayvar y by method. BASIC METABOLIC [id number] 15:04:00 Test Item Value Reference Range Interpretation Comments SODIUM (test code = 138 mEq/L 134-147 N NA) POTASSIUM (test code 3.4 mEq/L 3.4-5.0 N = K) CHLORIDE (test code 107 mEq/L 100-108 N = CL) CARBON DIOXIDE (test 20 mEq/l 21-33 L code = CO2) ANION GAP (test code 14 0-20 N = GAP) GLUCOSE (test code = 84 mg/dL 70-110 GLU) BLOOD UREA NITROGEN 9 mg/dL 7-18 N (test code = BUN) GLOMERULAR 99.4 80-90 H The Glomerular FILTRATION RATE Filtration R ate is a (test code = GFR) calculated parameterbased on serum Creatinine, pat ient age and sex. GFR va luesless than 60 mL/min/ 1.73 square meters a re indicative ofCh ronic Kidney Disease. Values less than 15 mL/min/1.73squa re meters indicate Kidney failure. The calculation forGFR is based on the CKD-EPI (2020) calculat ion. This formulais race indifferent and is the recommended for jose miguel for GFRby the [facility] for Adults.The GFR will not calculate if th e sex is unknown or if thepatient's ag e is <18 years. CREATININE (test 0.8 mg/dL 0.6-1.3 N code = CREAT) CALCIUM (test code = 7.1 mg/dL 8.0-10.5 L CA) TROP-I HIGH [id number] 10:07:00 Test Item Value Reference Range Interpretation Comments TROP-I HIGH < 3 ng/L 0-54 N CAUTION: Units of the SENSITIVITY (test current te st methodology code = TROPIHS) (ng/L) diffe rfrom the prior test meth odology (ng/mL) by a fa ctor of 1000. 99t h Percentile Uppe r Reference Limit (URL): Fe males: 34 ng/LMales: 54 n g/L In order to distin guish acute elevations of h igh sensitivitytrop onin from other clinical conditions, the FourthUnive rsal Definition of M yocardial Infarction stressesclinica l assessment and the demonstration o f a rise and/orfall in s erial troponin result s above the URL. These resu lts were obtained using Siemens Atellica IM TnI Hreagent. Results from di fferent methodologies s hould not becompared to o ne another as quantitative results and URLs mayvar y by method. CBC W/AUTO [id number] 09:54:00 Test Item Value Reference Range Interpretation Comments WHITE BLOOD CELL (test code = 17.6 x10 3/uL 4.5-11.0 H WBC) RED BLOOD CELL (test code = 4.08 x10 6/uL 4.00-5.60 N RBC) HEMOGLOBIN (test code = HGB) 11.7 g/dL 12.5-16.9 L HEMATOCRIT (test code = HCT) 36.5 % 37.5-50.7 L MEAN CELL VOLUME (test code = 89.5 fL 81.0-99.0 N MCV) MEAN CELL HGB (test code = 28.7 pg 27.0-33.0 N MCH) MEAN CELL HGB CONCETRATION 32.1 g/dL 33.0-37.0 L (test code = MCHC) RED CELL DISTRIBUTION WIDTH CV 14.0 % 11.5-14.5 N (test code = RDW) RED CELL DISTRIBUTION WIDTH SD 45.6 fL 37.0-54.0 N (test code = RDW-SD) PLATELET COUNT (test code = 341 x10 3/uL 150-400 N PLT) MEAN PLATELET VOLUME (test 9.5 fL 7.0-9.0 H code = MPV) NEUTROPHIL % (test code = NT%) 78.3 % 56.0-77.0 H IMMATURE GRANULOCYTE % (test 2.0 % 0.0-2.0 N code = IG%) LYMPHOCYTE % (test code = LY%) 9.5 % 14.0-32.0 L MONOCYTE % (test code = MO%) 7.2 % 4.8-9.0 N EOSINOPHIL % (test code = EO%) 2.6 % 0.3-3.7 N BASOPHIL % (test code = BA%) 0.4 % 0.0-2.0 N NUCLEATED RBC % (test code = 0.0 % 0-0 N NRBC%) NEUTROPHIL # (test code = NT#) 13.75 x10 3/uL 2.0-7.6 H IMMATURE GRANULOCYTE # (test 0.35 x10 3/uL 0.00-0.03 H code = IG#) LYMPHOCYTE # (test code = LY#) 1.67 x10 3/uL 1.0-3.8 N MONOCYTE # (test code = MO#) 1.27 x10 3/uL 0.1-0.8 H EOSINOPHIL # (test code = EO#) 0.46 x10 3/uL 0.0-0.2 H BASOPHIL # (test code = BA#) 0.07 x10 3/uL 0.0-0.2 N NUCLEATED RBC # (test code = 0.00 x10 3/uL 0.0-0.1 N NRBC#) MANUAL DIFF REQUIRED (test NO code = MDIFF) TROP-I HIGH [id number] 09:24:00 Test Item Value Reference Range Interpretation Comments TROP-I HIGH < 3 ng/L 0-54 N CAUTION: Units of the SENSITIVITY (test current te st methodology code = TROPIHS) (ng/L) diffe rfrom the prior test meth odology (ng/mL) by a fa ctor of 1000. 99t h Percentile Uppe r Reference Limit (URL): Fe males: 34 ng/LMales: 54 n g/L In order to distin guish acute elevations of h igh sensitivitytrop onin from other clinical conditions, the FourthUnive rsal Definition of M yocardial Infarction stressesclinica l assessment and the demonstration o f a rise and/orfall in s erial troponin result s above the URL. These resu lts were obtained using [employer] IM TnI Hreagent. Results from di fferent methodologies s hould not becompared to o ne another as quantitative results and URLs mayvar y by method. 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 [facility] COMPREHENSIVE METABOLIC [id number] 02:08:00 Test Item Value Reference Range Interpretation Comments SODIUM (test code = 138 mEq/L 134-147 N NA) POTASSIUM (test code 3.0 mEq/L 3.4-5.0 L = K) CHLORIDE (test code 105 mEq/L 100-108 N = CL) CARBON DIOXIDE (test 30 mEq/l 21-33 N code = CO2) ANION GAP (test code 6 0-20 N = GAP) GLUCOSE (test code = 115 mg/dL 70-110 H GLU) BLOOD UREA NITROGEN 12 mg/dL 7-18 N (test code = BUN) GLOMERULAR 99.4 80-90 H The Glomerular FILTRATION RATE Filtration R ate is a (test code = GFR) calculated parameterbased on serum Creatinine, pat ient age and sex. GFR va luesless than 60 mL/min/ 1.73 square meters a re indicative ofCh ronic Kidney Disease. Values less than 15 mL/min/1.73squa re meters indicate Kidney failure. The calculation for GFR is based on the CK D-EPI (2020) calculat ion. This formulais race indifferent and is the recommended for jose miguel for GFRby the [facility] for Ad[facility].The GFR will not calculate if th e sex is unknown or if thepatient's ag e is <18 years. CREATININE (test 0.8 mg/dL 0.6-1.3 N code = CREAT) TOTAL PROTEIN (test 5.0 g/dL 6.4-8.2 L code = PROT) ALBUMIN (test code = 2.30 g/dL 3.4-5.0 L ALB) CALCIUM (test code = 7.2 mg/dL 8.0-10.5 L CA) BILIRUBIN TOTAL 0.30 mg/dL 0.0-1.0 (test code = BILT) SGOT/AST (test code 25 IUnit/L 15-37 N = AST) SGPT/ALT (test code 28 IUnit/L 30-65 L = ALT) ALKALINE PHOSPHATASE 47 IUnit/L 20-125 N TOTAL (test code = ALKP) [id number] 02:08:00 Test Item Value Reference Range Interpretation Comments LIPASE (test code = LIP) 57 U/L 13-57 N PROTHROMBIN [id number] 02:05:00 Test Item Value Reference Range Interpretation Comments PROTHROMBIN TIME 12.7 SECONDS 9.3-12.9 N PATIENT (test code = PTP) INTERNATIONAL NORMAL 1.1 0.8-1.2 N TARGE T INR BY RATIO (test code = INDICATIO N Indication INR) INR1. Prophylax is of venous thrombos is 2.0 - 3.0 (orthoped ic surgery), Proph ylaxis of venous throm bosis (other than hig h-risk surgery), Treat ment of Deep Vein Thrombosis/Pulm onary Embolism, Preve ntion of systemic emb olism - Tissue heart va lves, Acute Myocardia l Infarction (to prevent systemic emboli sm), Valvular heart disease, Atrial Fibrillation, Bileaflet mecha nical valve in aortic position.2. Mec hanical prosthetic valv es (high risk), 2. 5 - 3.5 Presence of Lup us Anticoagulant o r Antiphospholipi d Antibodies, Pre vention of systemic emb olism - Acute Myocardia l Infarction (to prevent recurrent infar ct). THROMBOPLASTIN TIME [id number] 02:05:00 Test Item Value Reference Range Interpretation Comments THROMBOPLASTIN TIME 26.1 Seconds 25.0-39.5 N Therape utic Range: PARTIAL (test code = 50.4 - 88.3 Seconds PTT) Effective 07/21/2018 LACTIC [id number] 01:59:00 Test Item Value Reference Range Interpretation Comments LACTIC ACID (test code = LACT) 1.1 mmol/L 0.4-1.9 N CBC W/AUTO [id number] 01:51:00 Test Item Value Reference Range Interpretation Comments WHITE BLOOD CELL (test code = 19.1 x10 3/uL 4.5-11.0 H WBC) RED BLOOD CELL (test code = 4.20 x10 6/uL 4.00-5.60 N RBC) HEMOGLOBIN (test code = HGB) 12.3 g/dL 12.5-16.9 L HEMATOCRIT (test code = HCT) 37.2 % 37.5-50.7 L MEAN CELL VOLUME (test code = 88.6 fL 81.0-99.0 N MCV) MEAN CELL HGB (test code = 29.3 pg 27.0-33.0 N MCH) MEAN CELL HGB CONCETRATION 33.1 g/dL 33.0-37.0 N (test code = MCHC) RED CELL DISTRIBUTION WIDTH CV 13.8 % 11.5-14.5 N (test code = RDW) RED CELL DISTRIBUTION WIDTH SD 45.1 fL 37.0-54.0 N (test code = RDW-SD) PLATELET COUNT (test code = 328 x10 3/uL 150-400 N PLT) MEAN PLATELET VOLUME (test 8.9 fL 7.0-9.0 N code = MPV) NEUTROPHIL % (test code = NT%) 80.7 % 56.0-77.0 H IMMATURE GRANULOCYTE % (test 2.0 % 0.0-2.0 N code = IG%) LYMPHOCYTE % (test code = LY%) 7.3 % 14.0-32.0 L MONOCYTE % (test code = MO%) 7.5 % 4.8-9.0 N EOSINOPHIL % (test code = EO%) 2.2 % 0.3-3.7 N BASOPHIL % (test code = BA%) 0.3 % 0.0-2.0 N NUCLEATED RBC % (test code = 0.0 % 0-0 N NRBC%) NEUTROPHIL # (test code = NT#) 15.38 x10 3/uL 2.0-7.6 H IMMATURE GRANULOCYTE # (test 0.39 x10 3/uL 0.00-0.03 H code = IG#) LYMPHOCYTE # (test code = LY#) 1.40 x10 3/uL 1.0-3.8 N MONOCYTE # (test code = MO#) 1.44 x10 3/uL 0.1-0.8 H EOSINOPHIL # (test code = EO#) 0.42 x10 3/uL 0.0-0.2 H BASOPHIL # (test code = BA#) 0.05 x10 3/uL 0.0-0.2 N NUCLEATED RBC # (test code = 0.00 x10 3/uL 0.0-0.1 N NRBC#) MANUAL DIFF REQUIRED (test NO code = MDIFF) - XR CHEST 1 [id number] 00:00:00 [facility] : 1960 Sex: M FAX: Sofia Cheng NP [phone] Kimberly: St: [facility] FAX: Salinas Callahan I [phone] --- Name: MARYANNE CASTILLO [facility] : 1960 Age/S: 62/M [address] [place] [address] Blvd Unit #: [id number] Loc: G.6630 [place] [address] Phys: Sofia Cheng NP Acct: [id number] Dis Date: Status: ADM IN PHONE #: [phone] Exam Date: 10/20/2022106 FAX #: [phone] Reason: Sepsis EXAMS: CPT CODE: [id number] XR CHEST 1 V 39103 PROCEDURE INFORMATION: Exam: XR Chest Exam date and time: 10/20/2022 1:02 AM Age: 62 years old Clinical indication: Pain; Other: Sepsis TECHNIQUE: Imaging protocol: Radiologic exam of the chest. Views: 1 view. COMPARISON: CT CHEST W/CONTRAST, CT ABD PELVIS W/CONT 10/15/2022 9:14 PM FINDINGS: Lungs: Mild interstitial pulmonary edema. No focal consolidation. Pleural spaces: Unremarkable. No pleural effusion. No pneumothorax. Heart/Mediastinum: No cardiomegaly. Bones/joints: No acute a bnormality. IMPRESSION: Mild interstitial pulmonary edema. No focal consolidation. ElectronicallySigned by Perla Jacobs on 10/20/2022 at 0214 Reported and signed by: Reinaldo Jacobs M.D. 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 [facility] URINALYSIS [id number] 20:03:00 Test Item Value Reference Range Interpretation Comments UA COLOR (test code = COLU) YELLOW YEL/STRAW UA APPEARANCE (test code = APPU) SL CLOUDY CLEAR UA GLUCOSE DIPSTICK (test code = NEGATIVE NEGATIVE DGLUU) UA BILIRUBIN DIPSTICK (test code NEGATIVE NEGATIVE = BILU) UA KETONE DIPSTICK (test code = NEGATIVE NEGATIVE KETU) UA SPECIFIC GRAVITY (test code = 1.015 1.005-1.030 N SGU) UA BLOOD DIPSTICK (test code = 3+ NEGATIVE A ROXANA) UA PH DIPSTICK (test code = FORREST) 5.0 5.0-7.0 N UA PROTEIN DIPSTICK (test code = 1+ NEGATIVE A PROU) UA UROBILINIOGEN DIPSTICK (test 0.2 mg/dL 0.2-1.0 code = URO) UA NITRITE DIPSTICK (test code = NEGATIVE NEGATIVE CR) UA LEUKOCYTE ESTERASE DIPSTICK 1+ NEGATIVE A (test code = LEUU) UA RBC (test code = RBCU) >50 RBC/HPF 0-3 A UA WBC NO REFLEX (test code = >50 WBC/HPF 0-3 A WBCUCL) UA BACTERIA (test code = BACU) TRACE /HPF NONE SEEN UA SQUAMOUS CELLS (test code = 0-5 /HPF NONE SEEN SQU) UA HYALINE CAST (test code = 11-20 /LPF NONE SEEN HYALU) UA MUCUS (test code = MUCU) 1+ /LPF NONE SEEN UR SODIUM [id number] 20:03:00 Test Item Value Reference Range Interpretation Comments UR SODIUM RANDOM 102 MEQ/L The Referen ce Range and (test code = Method Performa nce JERRY) specificationsh ave not been established for this fluid. The test result should be correlated into the clinical context forinte rpretation. UR PROTEIN [id number] 20:03:00 Test Item Value Reference Range Interpretation Comments UR PROTEIN RANDOM (test code = 79 mg/dL PROTU) UR CREATININE [id number] 20:03:00 Test Item Value Reference Range Interpretation Comments UR CREATININE 111.9 mg/dL The Reference Range and RANDOM (test code Method Per formance = CREATU) specificationsh ave not been establishe d for this fluid. The test resultshould be correlated into the clinical contex t forinterpretati on. 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 [facility] GLUCOSE [id number] 12:48:00 Test Item Value Reference Range Interpretation Comments GLUCOSE BEDSIDE (test 109 MG/DL 70-110 N Perfor med by certified code = GLUBED) 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 [facility] GLUCOSE [id number] 07:53:00 Test Item Value Reference Range Interpretation Comments GLUCOSE BEDSIDE (test 96 MG/DL 70-110 N Perfor med by certified code = GLUBED) 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 [facility] BASIC METABOLIC [id number] 07:51:00 Test Item Value Reference Range Interpretation Comments SODIUM (test code = 139 mEq/L 134-147 N NA) POTASSIUM (test code 3.6 mEq/L 3.4-5.0 N = K) CHLORIDE (test code 106 mEq/L 100-108 N = CL) CARBON DIOXIDE (test 27 mEq/l 21-33 N code = CO2) ANION GAP (test code 10 0-20 N = GAP) GLUCOSE (test code = 85 mg/dL 70-110 N GLU) BLOOD UREA NITROGEN 10 mg/dL 7-18 N (test code = BUN) GLOMERULAR 99.4 80-90 H The Glomerular FILTRATION RATE Filtration R ate is a (test code = GFR) calculated parameterbased on serum Creatinine, pat ient age and sex. GFR va luesless than 60 mL/min/ 1.73 square meters a re indicative ofCh ronic Kidney Disease. Values less than 15 mL/min/1.73squa re meters indicate Kidney failure. The calculation forGFR is based on the CKD-EPI (2020) calculat ion. This formulais race indifferent and is the recommended for jose miguel for GFRby the [facility] for Adults.The GFR will not calculate if th e sex is unknown or if thepatient's ag e is <18 years. CREATININE (test 0.8 mg/dL 0.6-1.3 N code = CREAT) CALCIUM (test code = 7.5 mg/dL 8.0-10.5 L CA) [id number] 07:51:00 Test Item Value Reference Range Interpretation Comments MAGNESIUM (test code = MAG) 1.65 mg/dL 1.80-2.40 L CBC W/AUTO [id number] 07:07:00 Test Item Value Reference Range Interpretation Comments WHITE BLOOD CELL (test code = 9.5 x10 3/uL 4.5-11.0 N WBC) RED BLOOD CELL (test code = 4.04 x10 6/uL 4.00-5.60 N RBC) HEMOGLOBIN (test code = HGB) 11.7 g/dL 12.5-16.9 L HEMATOCRIT (test code = HCT) 35.5 % 37.5-50.7 L MEAN CELL VOLUME (test code = 87.9 fL 81.0-99.0 N MCV) MEAN CELL HGB (test code = MCH) 29.0 pg 27.0-33.0 N MEAN CELL HGB CONCETRATION 33.0 g/dL 33.0-37.0 N (test code = MCHC) RED CELL DISTRIBUTION WIDTH CV 14.0 % 11.5-14.5 N (test code = RDW) RED CELL DISTRIBUTION WIDTH SD 44.7 fL 37.0-54.0 N (test code = RDW-SD) PLATELET COUNT (test code = 313 x10 3/uL 150-400 N PLT) MEAN PLATELET VOLUME (test code 9.5 fL 7.0-9.0 H = MPV) NEUTROPHIL % (test code = NT%) 64.4 % 56.0-77.0 N IMMATURE GRANULOCYTE % (test 4.7 % 0.0-2.0 H code = IG%) LYMPHOCYTE % (test code = LY%) 15.7 % 14.0-32.0 N MONOCYTE % (test code = MO%) 8.5 % 4.8-9.0 N EOSINOPHIL % (test code = EO%) 6.0 % 0.3-3.7 H BASOPHIL % (test code = BA%) 0.7 % 0.0-2.0 N NUCLEATED RBC % (test code = 0.0 % 0-0 N NRBC%) NEUTROPHIL # (test code = NT#) 6.09 x10 3/uL 2.0-7.6 N IMMATURE GRANULOCYTE # (test 0.44 x10 3/uL 0.00-0.03 H code = IG#) LYMPHOCYTE # (test code = LY#) 1.48 x10 3/uL 1.0-3.8 N MONOCYTE # (test code = MO#) 0.80 x10 3/uL 0.1-0.8 N EOSINOPHIL # (test code = EO#) 0.57 x10 3/uL 0.0-0.2 H BASOPHIL # (test code = BA#) 0.07 x10 3/uL 0.0-0.2 N NUCLEATED RBC # (test code = 0.00 x10 3/uL 0.0-0.1 N NRBC#) MANUAL DIFF REQUIRED (test code NO = MDIFF) GLUCOSE [id number] 20:44:00 Test Item Value Reference Range Interpretation Comments GLUCOSE BEDSIDE (test 116 MG/DL 70-110 H Perfor med by certified code = GLUBED) 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 [facility] GLUCOSE [id number] 18:07:00 Test Item Value Reference Range Interpretation Comments GLUCOSE BEDSIDE (test 98 MG/DL 70-110 N Perfor med by certified code = GLUBED) 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 [facility] GLUCOSE [id number] 12:23:00 Test Item Value Reference Range Interpretation Comments GLUCOSE BEDSIDE (test 135 MG/DL 70-110 H Perfor med by certified code = GLUBED) 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 [facility] GLUCOSE [id number] 11:22:00 Test Item Value Reference Range Interpretation Comments GLUCOSE BEDSIDE (test 104 MG/DL 70-110 N Perfor med by certified code = GLUBED) 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 [facility] BASIC METABOLIC [id number] 08:12:00 Test Item Value Reference Range Interpretation Comments SODIUM (test code = 138 mEq/L 134-147 N NA) POTASSIUM (test code 3.1 mEq/L 3.4-5.0 L = K) CHLORIDE (test code 104 mEq/L 100-108 N = CL) CARBON DIOXIDE (test 30 mEq/l 21-33 N code = CO2) ANION GAP (test code 7 0-20 N = GAP) GLUCOSE (test code = 97 mg/dL 70-110 N GLU) BLOOD UREA NITROGEN 12 mg/dL 7-18 N (test code = BUN) GLOMERULAR 99.4 80-90 H The Glomerular FILTRATION RATE Filtration R ate is a (test code = GFR) calculated parameterbased on serum Creatinine, pat ient age and sex. GFR va luesless than 60 mL/min/ 1.73 square meters a re indicative ofCh ronic Kidney Disease. Values less than 15 mL/min/1.73squa re meters indicate Kidney failure. The calculation forGFR is based on the CKD-EPI (2020) calculat ion. This formulais race indifferent and is the recommended for jose miguel for GFRby the [facility] for Adults.The GFR will not calculate if th e sex is unknown or if thepatient's ag e is <18 years. CREATININE (test 0.8 mg/dL 0.6-1.3 N code = CREAT) CALCIUM (test code = 7.4 mg/dL 8.0-10.5 L CA) [id number] 08:12:00 Test Item Value Reference Range Interpretation Comments MAGNESIUM (test code = MAG) 1.48 mg/dL 1.80-2.40 L CBC W/AUTO [id number] 08:09:00 Test Item Value Reference Range Interpretation Comments WHITE BLOOD CELL (test code = 8.9 x10 3/uL 4.5-11.0 N WBC) RED BLOOD CELL (test code = 4.00 x10 6/uL 4.00-5.60 N RBC) HEMOGLOBIN (test code = HGB) 11.8 g/dL 12.5-16.9 L HEMATOCRIT (test code = HCT) 35.4 % 37.5-50.7 L MEAN CELL VOLUME (test code = 88.5 fL 81.0-99.0 N MCV) MEAN CELL HGB (test code = MCH) 29.5 pg 27.0-33.0 N MEAN CELL HGB CONCETRATION 33.3 g/dL 33.0-37.0 N (test code = MCHC) RED CELL DISTRIBUTION WIDTH CV 14.0 % 11.5-14.5 N (test code = RDW) RED CELL DISTRIBUTION WIDTH SD 45.3 fL 37.0-54.0 N (test code = RDW-SD) PLATELET COUNT (test code = 294 x10 3/uL 150-400 N PLT) MEAN PLATELET VOLUME (test code 9.8 fL 7.0-9.0 H = MPV) NEUTROPHIL % (test code = NT%) 62.2 % 56.0-77.0 N IMMATURE GRANULOCYTE % (test 3.9 % 0.0-2.0 H code = IG%) LYMPHOCYTE % (test code = LY%) 15.6 % 14.0-32.0 N MONOCYTE % (test code = MO%) 10.1 % 4.8-9.0 H EOSINOPHIL % (test code = EO%) 7.5 % 0.3-3.7 H BASOPHIL % (test code = BA%) 0.7 % 0.0-2.0 N NUCLEATED RBC % (test code = 0.0 % 0-0 N NRBC%) NEUTROPHIL # (test code = NT#) 5.53 x10 3/uL 2.0-7.6 N IMMATURE GRANULOCYTE # (test 0.35 x10 3/uL 0.00-0.03 H code = IG#) LYMPHOCYTE # (test code = LY#) 1.39 x10 3/uL 1.0-3.8 N MONOCYTE # (test code = MO#) 0.90 x10 3/uL 0.1-0.8 H EOSINOPHIL # (test code = EO#) 0.67 x10 3/uL 0.0-0.2 H BASOPHIL # (test code = BA#) 0.06 x10 3/uL 0.0-0.2 N NUCLEATED RBC # (test code = 0.00 x10 3/uL 0.0-0.1 N NRBC#) MANUAL DIFF REQUIRED (test code NO = MDIFF) GLUCOSE [id number] 05:56:00 Test Item Value Reference Range Interpretation Comments GLUCOSE BEDSIDE (test 104 MG/DL 70-110 N Perfor med by certified code = GLUBED) 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 [facility] GLUCOSE [id number] 03:31:00 Test Item Value Reference Range Interpretation Comments GLUCOSE BEDSIDE (test 129 MG/DL 70-110 H Perfor med by certified code = GLUBED) 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 [facility] GLUCOSE [id number] 12:50:00 Test Item Value Reference Range Interpretation Comments GLUCOSE BEDSIDE (test 177 MG/DL 70-110 H Perfor med by certified code = GLUBED) 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 [facility] CBC W/AUTO [id number] 10:14:00 Test Item Value Reference Range Interpretation Comments WHITE BLOOD CELL 11.5 x10 3/uL 4.5-11.0 H (test code = WBC) RED BLOOD CELL (test 4.17 x10 6/uL 4.00-5.60 N code = RBC) HEMOGLOBIN (test code 12.0 g/dL 12.5-16.9 L = HGB) HEMATOCRIT (test code 35.7 % 37.5-50.7 L = HCT) MEAN CELL VOLUME 85.6 fL 81.0-99.0 N (test code = MCV) MEAN CELL HGB (test 28.8 pg 27.0-33.0 N code = MCH) MEAN CELL HGB 33.6 g/dL 33.0-37.0 N CONCETRATION (test code = MCHC) RED CELL DISTRIBUTION 14.2 % 11.5-14.5 N WIDTH CV (test code = RDW) RED CELL DISTRIBUTION 44.5 fL 37.0-54.0 N WIDTH SD (test code = RDW-SD) PLATELET COUNT (test 285 x10 3/uL 150-400 N code = PLT) MEAN PLATELET VOLUME 9.9 fL 7.0-9.0 H (test code = MPV) NEUTROPHIL % (test 71.5 % 56.0-77.0 N code = NT%) LYMPHOCYTE % (test 10.6 % 14.0-32.0 L code = LY%) NEUTROPHIL # (test 8.23 x10 3/uL 2.0-7.6 H code = NT#) LYMPHOCYTE # (test 1.22 x10 3/uL 1.0-3.8 N code = LY#) MANUAL DIFF REQUIRED NO SLIDE R EVIEWED, (test code = MDIFF) CONSISTE NT WITH AUTO DIFF. IMMATURE GRANULOCYTE 2.0 % 0.0-2.0 N % (test code = IG%) MONOCYTE % (test code 12.8 % 4.8-9.0 H = MO%) EOSINOPHIL % (test 2.7 % 0.3-3.7 N code = EO%) BASOPHIL % (test code 0.4 % 0.0-2.0 N = BA%) NUCLEATED RBC % (test 0.0 % 0-0 N code = NRBC%) IMMATURE GRANULOCYTE 0.23 x10 3/uL 0.00-0.03 H # (test code = IG#) MONOCYTE # (test code 1.47 x10 3/uL 0.1-0.8 H = MO#) EOSINOPHIL # (test 0.31 x10 3/uL 0.0-0.2 H code = EO#) BASOPHIL # (test code 0.05 x10 3/uL 0.0-0.2 N = BA#) NUCLEATED RBC # (test 0.00 x10 3/uL 0.0-0.1 N code = NRBC#) VITAMIN D [id number] 08:19:00 Test Item Value Reference Range Interpretation Comments VITAMIN D 25-HYDROXY (test code = 25.5 ng/mL 30-100 L [id number]) Indication for Test: PTH DisorderCOMPREHENSIVE METABOLIC [id number] 08:14:00 Test Item Value Reference Range Interpretation Comments SODIUM (test code = 140 mEq/L 134-147 N NA) POTASSIUM (test code 3.2 mEq/L 3.4-5.0 L = K) CHLORIDE (test code 105 mEq/L 100-108 N = CL) CARBON DIOXIDE (test 26 mEq/l 21-33 N code = CO2) ANION GAP (test code 12 0-20 N = GAP) GLUCOSE (test code = 103 mg/dL 70-110 N GLU) BLOOD UREA NITROGEN 18 mg/dL 7-18 N (test code = BUN) GLOMERULAR 96.0 80-90 H The Glomerular FILTRATION RATE Filtration R ate is a (test code = GFR) calculated parameterbased on serum Creatinine, pat ient age and sex. GFR va luesless than 60 mL/min/ 1.73 square meters a re indicative ofCh ronic Kidney Disease. Values less than 15 mL/min/1.73squa re meters indicate Kidney failure. The calculation for GFR is based on the CK D-EPI (2020) calculat ion. This formulais race indifferent and is the recommended for jose miguel for GFRby the [facility] on for Adults.The GFR will not calculate if th e sex is unknown or if thepatient's ag e is <18 years. CREATININE (test 0.9 mg/dL 0.6-1.3 N code = CREAT) TOTAL PROTEIN (test 5.6 g/dL 6.4-8.2 L code = PROT) ALBUMIN (test code = 2.40 g/dL 3.4-5.0 L ALB) CALCIUM (test code = 8.4 mg/dL 8.0-10.5 N CA) BILIRUBIN TOTAL 0.50 mg/dL 0.0-1.0 (test code = BILT) SGOT/AST (test code 23 IUnit/L 15-37 N = AST) SGPT/ALT (test code 24 IUnit/L 30-65 L = ALT) ALKALINE PHOSPHATASE 62 IUnit/L 20-125 N TOTAL (test code = ALKP) [id number] 08:14:00 Test Item Value Reference Range Interpretation Comments PHOSPHOROUS (test code = PHOS) 2.6 MG/DL 2.5-4.9 N [id number] 08:14:00 Test Item Value Reference Range Interpretation Comments MAGNESIUM (test code = MAG) 1.50 mg/dL 1.80-2.40 L GLUCOSE [id number] 07:40:00 Test Item Value Reference Range Interpretation Comments GLUCOSE BEDSIDE (test 105 MG/DL 70-110 N Perfor med by certified code = GLUBED) 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 Prophylax is of venous thrombos is 2.0 - 3.0 (orthoped ic surgery), Proph ylaxis of venous throm bosis (other than hig h-risk surgery), Treat ment of Deep Vein Thrombosis/Pulm onary Embolism, Preve ntion of systemic emb olism - Tissue heart va lves, Acute Myocardia l Infarction (to prevent systemic emboli sm), Valvular heart disease, Atrial Fibrillation, Bileaflet mecha nical valve in aortic position.2. Mec hanical prosthetic valv es (high risk), 2. 5 - 3.5 Presence of Lup us Anticoagulant o r Antiphospholipi d Antibodies, Pre vention of systemic emb olism - Acute Myocardia l Infarction (to prevent recurrent infar ct). TSH REFLEX TO [id number] 14:32:00 Test Item Value Reference Range Interpretation Comments TSH REFLEX TO FT4 (test code = 1.59 IU/mL 0.42-5.47 N TSHREFLEX) [id number] 14:19:00 Test Item Value Reference Range Interpretation Comments HGBA1C% (test code = HGBA1C%) 5.5 %A1C 4.8-6.0 N COMPREHENSIVE METABOLIC [id number] 14:13:00 Test Item Value Reference Range Interpretation Comments SODIUM (test code = 138 mEq/L 134-147 N NA) POTASSIUM (test code 4.0 mEq/L 3.4-5.0 = K) CHLORIDE (test code 106 mEq/L 100-108 N = CL) CARBON DIOXIDE (test 24 mEq/l 21-33 code = CO2) ANION GAP (test code 12 0-20 N = GAP) GLUCOSE (test code = 107 mg/dL 70-110 GLU) BLOOD UREA NITROGEN 33 mg/dL 7-18 H (test code = BUN) GLOMERULAR 56.5 80-90 L The Glomerular FILTRATION RATE Filtration R ate is a (test code = GFR) calculated parameterbased on serum Creatinine, pat ient age and sex. GFR va luesless than 60 mL/min/ 1.73 square meters a re indicative ofCh ronic Kidney Disease. Values less than 15 mL/min/1.73squa re meters indicate Kidney failure. The calculation for GFR is based on the CK D-EPI (2020) calculat ion. This formulais race indifferent and is the recommended for jose miguel for GFRby the [facility] for Ad[facility].The GFR will not calculate if th e sex is unknown or if thepatient's ag e is <18 years. CREATININE (test 1.4 mg/dL 0.6-1.3 H code = CREAT) TOTAL PROTEIN (test 5.8 g/dL 6.4-8.2 L code = PROT) ALBUMIN (test code = 2.60 g/dL 3.4-5.0 L ALB) CALCIUM (test code = 8.0 mg/dL 8.0-10.5 CA) BILIRUBIN TOTAL 0.70 mg/dL 0.0-1.0 N (test code = BILT) SGOT/AST (test code 17 IUnit/L 15-37 N = AST) SGPT/ALT (test code 21 IUnit/L 30-65 L = ALT) ALKALINE PHOSPHATASE 62 IUnit/L 20-125 N TOTAL (test code = ALKP) [id number] 14:13:00 Test Item Value Reference Range Interpretation Comments MAGNESIUM (test code = MAG) 1.91 mg/dL 1.80-2.40 N GLUCOSE [id number] 12:54:00 Test Item Value Reference Range Interpretation Comments GLUCOSE BEDSIDE (test 102 MG/DL 70-110 N [facility] med by certified code = GLUBED) 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 [facility] GLUCOSE [id number] 10:14:00 Test Item Value Reference Range Interpretation Comments GLUCOSE BEDSIDE (test 110 MG/DL 70-110 N [facility] by certified code = GLUBED) 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 [facility] CBC W/AUTO [id number] 05:58:00 Test Item Value Reference Range Interpretation Comments WHITE BLOOD CELL (test code = 11.0 x10 3/uL 4.5-11.0 N WBC) RED BLOOD CELL (test code = 3.74 x10 6/uL 4.00-5.60 L RBC) HEMOGLOBIN (test code = HGB) 10.9 g/dL 12.5-16.9 L HEMATOCRIT (test code = HCT) 31.7 % 37.5-50.7 L MEAN CELL VOLUME (test code = 84.8 fL 81.0-99.0 N MCV) MEAN CELL HGB (test code = MCH) 29.1 pg 27.0-33.0 N MEAN CELL HGB CONCETRATION 34.4 g/dL 33.0-37.0 N (test code = MCHC) RED CELL DISTRIBUTION WIDTH CV 14.1 % 11.5-14.5 N (test code = RDW) PLATELET COUNT (test code = 207 x10 3/uL 150-400 N PLT) NEUTROPHIL % (test code = NT%) 81.5 % 56.0-77.0 H LYMPHOCYTE % (test code = LY%) 3.8 % 14.0-32.0 L NEUTROPHIL # (test code = NT#) 8.96 x10 3/uL 2.0-7.6 H LYMPHOCYTE # (test code = LY#) 0.42 x10 3/uL 1.0-3.8 L MANUAL DIFF REQUIRED (test code NO = MDIFF) RED CELL DISTRIBUTION WIDTH SD 43.7 fL 37.0-54.0 N (test code = RDW-SD) MEAN PLATELET VOLUME (test code 9.8 fL 7.0-9.0 H = MPV) IMMATURE GRANULOCYTE % (test 0.5 % 0.0-2.0 N code = IG%) MONOCYTE % (test code = MO%) 13.6 % 4.8-9.0 H EOSINOPHIL % (test code = EO%) 0.4 % 0.3-3.7 N BASOPHIL % (test code = BA%) 0.2 % 0.0-2.0 N NUCLEATED RBC % (test code = 0.0 % 0-0 N NRBC%) IMMATURE GRANULOCYTE # (test 0.05 x10 3/uL 0.00-0.03 H code = IG#) MONOCYTE # (test code = MO#) 1.49 x10 3/uL 0.1-0.8 H EOSINOPHIL # (test code = EO#) 0.04 x10 3/uL 0.0-0.2 N BASOPHIL # (test code = BA#) 0.02 x10 3/uL 0.0-0.2 N NUCLEATED RBC # (test code = 0.00 x10 3/uL 0.0-0.1 N NRBC#) Notes Date/Time Note Provider Source 2022-10-26 20:52:00-00:00 [id number] [place] [address] PATIENT NAME: MATHEW CASTILLO ADMIT DATE: 10/16/22 ACCOUNT NO: [id number] ROOM NO: G.6630 AGE: 62 REPORT TYPE: PROGRESS NOTE SEX: M ADMITTING PHYSICIAN:Salinas Alba MD ATTENDING PHYSICIAN:Salinas Alba MD DATE: 10/25/2022 SUBJECTIVE: The patient examined, chart reviewed , events of last 24 hours noted. The patient clinically is doing f air, remains awake and comfortable. No new problems reported. Remains afebrile. No naus ea, vomiting reported. No diarrhea reported. Continues to have indwelling Johns catheter in place. CURRENT MEDICATIONS: Include benztropine, cholec alciferol, lispro insulin, tamsulosin, haloperidol, Zosyn IV, Tylenol p.r.n ., docusate sodium p.r.n., glucagon p.r.n., hydrocodone bitartrate p.r.n., hydralazine p.r.n., ondansetron p.r.n. PHYSICAL EXAMINATION: GENERAL: The patient is resting comfortably in b ed. He is awake and alert, does not appear to be toxic, does not appear to be in any acute distress. VITAL SIGNS: Temperature maximum in last 24 hour s is 37.0 degrees Celsius. Current temperature is 37.1 degrees Celsius, blo od pressure is 118/70, respirations 16 per minute, pulse is 80 per bryan te. The patient's weight is around 68 kg. HEENT: Head is atraumatic and normocephalic. Pup ils are equal, round and reacting to light and accommodation bilaterally. Extraocular movements are intact. Oropharynx is clear. Oral hygiene is lyric r. NECK: Supple. JVD is absent. No carotid bruit, t hyromegaly, or cervical lymphadenopathy. LUNGS: There is fair air entry bilaterally. CARDIOVASCULAR: S1, S2 audible. No murmur, rick p, S3 or S4 appreciated. ABDOMEN: Soft and slightly bulging. The patient has mild suprapubic area tenderness. No hepatosplenomegaly. Bowel sounds are normoactive. Has minimal tenderness at the renal angles bilaterally. GENITOURINARY: The patient has indwelling Johns catheter in place. The catheter appears to be working fine and has clear urine and being drained into the bag. EXTREMITIES: Both calves are soft. No calf tende rness. No pedal edema. Peripheral pulses are faintly palpable bilateral ly. SKIN: The patient's peripheral IV sites are cielo n without any evidence of phlebitis. The lower abdominal discomfort has im proved. He has an indwelling Johns catheter in place. LABORATORY DATA: WBC is stable around 15 ,000 with hemoglobin of 13, hematocrit of 39, platelet count is 421 . Serum sodium is 138, potassium 4.0, chloride 108, bicarbonate 27, glucose 80, BUN 14, creatinine 0.9, estimated GFR is 96, calcium is 7.8. PATIENT NAME: MATHEW CASTILLO ACCOUNT #: G [id number] ASSESSMENT AND PLAN: The patient with multiple c omorbidities was admitted through Emergency Room where he was transferred from [place] with acute urinary retention. He had 3 liters of urine in t he bladder and had Johns catheter in place. The patient was evaluated by Urology Service and he clinically has shown improvement in his condition with IV antibiotics. He also had episode of fever and shorty kocytosis, which improved with changing antibiotics to Zosyn IV. His antibiotics have been discontin ued. Clinically, he seems to be doing fairly well. We will keep him o ff antibiotics and monitor him closely for any new development. Discussed with the [facility] ent's nursing staff. Dictated By: Skip Jaffe MD Date Dictated: 10/26/2022 20:52:41 Date Transcribed: 10/26/2022 21:14:58 HIGGINS/JORGE/CORETTA Receipt ID: [id number] Authenticated and Edited by Skip Jaffe MD On 11/02/22 2:24:00 AM Electronically Signed by Skip Jaffe MD on at 0323 PATIENT NAME: MATHEW CASTILLO ACCOUNT #: G [id number] 2022-10-26 13:41:00-00:00 [facility] Nephrology Progress Note REPORT#:[id number] REPORT STATUS: Signed DATE:10/26/22 TIME: 134 PATIENT: MATHEW CASTILLO UNIT #: [id number] ROOM/BED: 6630-1 : 59 AGE: 62 SEX: M ATTEND: Salians Alba MD ADM AUTHOR: Carmen Kemp * ALL edits or amendments must be made on the [employer]/computer document * Carmen Kemp 10/26/22 1341: Subjective Chief complaint: Concern for ruptured ureter HPI: The patient seen and examined. Resting in bed, t olerating PO intake w/o any issue. Johns to gravity, good UOP. Review of Systems ROS comments: A 12 point review of system was obtained and is negative unless specified in HPI Objective General VS/I O: Vital Signs: Date Time Temp Pulse Resp B/P B/P Pulse O2 O2 F low FiO2 Mean Ox Delivery Rate 10/26 0750 36.8 77 15 114/71 85.5 96 Room air 10/26 0450 37.1 74 17 125/79 94.2 96 Room air 10/26 0024 37.0 95 19 109/68 81.7 95 Room air 10/25 2038 69 17 104/64 77.4 98 Room air 10/25 1635 36.6 76 17 102/72 81.7 97 PATIENT WEIGHT: Weight (lb): Weight (oz): Weight (kg): 68.000 Medications Active Meds + DC'd Last 24 Hrs Cholecalciferol (VITAMIN D) 1,000 INTL.UNITS NIDHI LY PO (CKD) Tamsulosin HCl (Flomax 0.4 mg) 0.4 MG PC DIN PO Acetaminophen (TYLENOL) 650 MG Q4H PRN PRN PO Docusate Sodium (COLACE) 100 MG BID PRN PRN PO Haloperidol (HALDOL) 10 MG BID PO Hydralazine HCl (APRESOLINE) 10 MG Q6H PRN PRN I V Ondansetron HCl (ZOFRAN) 4 MG Q4H PRN PRN IV Benztropine Mesylate (COGENTIN) 1 MG DAILY PO Dextrose/Water (DEXTROSE 10% IN WATER) 125 ML DIR PRN IV (CKD) Dextrose/Water (DEXTROSE 10% IN WATER) 250 ML DIR PRN IV (CKD) Glucagon (GLUCAGON) 1 MG ASDIR PRN IM Insulin Human Lispro (HUMALOG) 0 AC HS SUBQ Dietitian nutrition assessment The data set between the solid lines has been im ported from the dietitian's assessment. BMI Calculated: 22.1 Nutrition related diagnosis: Nutrition diagnosis details: Nutrition problem: Nutrition etiology: Nutrition signs and symptoms: Nutrition prescription: Dietitian name: Assessment completed: Physical Exam General appearance: alert, awake, no acute distr ess Head/eyes: atraumatic, clear cornea, normal conj unctiva/sclera, normocephalic ENT: normal nose Neck: supple/no meningismus Cardiovascular: normal heart sounds Respiratory: decreased breath sounds, wheezes, a erating well, no distress Abdomen: non-tender, soft Genitourinary: urinary catheter, urine Extremities: no edema Results Findings/Data: Laboratory Tests 10/26 10/26 10/26 10/25 1158 0748 0600 1634 Chemistry Sodium (134 - 147 mEq/L) 140 Potassium (3.4 - 5.0 mEq/L) 4.5 Chloride (100 - 108 mEq/L) 107 Carbon Dioxide (21 - 33 mEq/l) 30 Anion Gap (0 - 20) 8 BUN (7 - 18 mg/dL) 18 Creatinine (0.6 - 1.3 mg/dL) 1.0 Glomerular Filtr Rate (80 - 90) 84.6 Glucose (70 - 110 mg/dL) 91 POC Glucose (70 - 110 MG/DL) 95 117 H 127 H Calcium (8.0 - 10.5 mg/dL) 8.1 Diagnosis, Assessment Plan Free Text A P: Assessment and Plan: CHANDRA (Resolved) -Renal function improved and wnl, johns to gravi ty, s/p bicarb gtt. -2/2 post-obstrucitve uropathy, monitor for post -obstructive diuresis. -UA, urine lytes requested and noted, no signifi cant proteinuria. -Per Urology note: Reportedly the patient had 3L of urine in his bladder. CT abdomen from [place] showed that the patien t has a very large distended bladder with hydroureteronep hrosis and there does appear to be maybe a forniceal rupture or some back pressure into the kidneys c ausing some inflammation and possibly a small amount of u rine to come out through the forniceal areas that I do not see an actual ruptured ureter. The patien t's creatinine has improved. His symptoms have totally re solved with catheter placement. This can be managed conservatively. The patient will follow up as an outpatient. -Avoid nephrotoxicity monitor renal function and UOP Hypokalemia/Hypocalcemia/Hypomagnesemia -Vitamin D deficiency, vitamin D supplement. -Monitor for post-obstructive diuresis and elect rolyte imbalance Urinary Retention/BPH -Johns to gravity, Urology following, on Tamsulo sin -Per Urology note: Reportedly the patient had 3L of urine in his bladder. CT abdomen from [place] showed that the patien t has a very large distended bladder with hydroureteronep hrosis and there does appear to be maybe a forniceal rupture or some back pressure into the kidneys c ausing some inflammation and possibly a small amount of u rine to come out through the forniceal areas that I do not see an actual ruptured ureter. The patien t's creatinine has improved. His symptoms have totally re solved with catheter placement. This can be managed conservatively. The patient will follow up as an outpatient. HTN -BP acceptable, monitor, on PRN IV hydralazine Schizophrenia -Home medications resumed Fever -Low grade fever on 10/19/22, blood cx (10/20/22): NGTD, B/L LE venous doppler (): Negative for DVT, on empiric abx per [facility] team. Discussed the plan with the patient, patient's dennys del valle and Dr. Koehler. Toby Koehler 10/26/221811: Attestations Physician Attestation Reviewed findings plan: Patient examined Renal function improved and wnl , johns to gravity, -2/2 post-obstrucitve uropat hy, replace electrolytes as needed, S/P antibiotics continue flomax, Agree with above A/P at 1342 at 3683 RPT #:[id number] END OF REPORT 2022-10-25 21:28:00-00:00 [facility] ([facility]) Infectious Dis. Progress Note REPORT#:[id number] REPORT STATUS: Signed DATE:10/25/22 TIME: 2127 PATIENT: MATHEW CASTILLO UNIT #: [id number] ROOM/BED: [place] [address] : 59 AGE: 62 SEX: M ATTEND: Salinas Alba MD ADM AUTHOR: Skip Jaffe MD * ALL edits or amendments must be made on the el [employer]/computer document * Subjective Internal record Patient examined, chart reviewed, events of last 24 hours noted. See full dictated progress note for further details. ASSESSMENT AND PLAN: Patient clinically is doing about the same. Maddi ins awake and alert. Resting comfortably in bed. Denies any new complaints. R emains afebrile. Recent complicated urinary tract infection with urinary retention. Bilateral lower extremity venous Doppler studies negative for DVT. D-dimer is elevated. CT angiogram of chest done on October 23, 2022 show ed no pulmonary embolus. Extensive colonic wall thickening of the visualized splenic flexure compatible with colitis incompletely evaluated. Small right pleural effusion with right lower lobe atelectasis. Left upper lobe bronchie ctasis. Minimal anterior pericardial effusion. Type 4 hiatal hernia measu res 7.6 cm to 6.5 cm. Gastric fundal wall thickening. Correlate boucher w ith recent endoscopy is recommended to help exclude an infiltrating mucosal process. Repeat urinalysis done on 2022 showed 1+ leukocyte esterase, more than 50 wbc's, more than 50 rbc's, trace bacteria. Bilateral lower extremity ve nous Doppler studies Show no evidence of DVT in the lower extremities. Fluctuating leukocytosis likely secondary to non infectious causes. IV antibiotics discontinued. Closely monitor for any new nosocomial acquired infection. Electronically Signed by Skip Jaffe MD on at 0256 RPT #:[id number] END OF REPORT 2022-10-25 19:13:00-00:00 [facility] ([facility]) Nephrology Progress Note REPORT#:[id number] REPORT STATUS: Signed DATE:10/25/22 TIME: 1912 PATIENT: MATHEW CASTILLO UNIT #: [id number] ROOM/BED: [place] [address] : 59 AGE: 62 SEX: M ATTEND: Salinas Alba MD ADM AUTHOR: Toby Koehler MD * ALL edits or amendments must be made on the el [employer]/computer document * Subjective Chief complaint: Concern for ruptured ureter HPI: The patient seen and examined. Resting in bed, t olerating PO intake w/o any issue. Johns to gravity, good UOP. Objective General VS/I O: Vital Signs: Date Time Temp Pulse Resp B/P B/P Pulse O2 O2 F low FiO2 Mean Ox Delivery Rate 10/25 1635 36.6 76 17 102/72 81.7 97 10/25 1052 36.7 82 100/61 74.0 96 10/25 0740 37.1 82 16 108/68 81.1 96 Room air 10/25 0408 36.7 93 18 120/77 91.5 98 Room air 10/25 0030 37.2 65 17 100/63 74.8 95 Room air 10/24 1950 37.1 72 14 111/65 80.3 96 PATIENT WEIGHT: Weight (lb): Weight (oz): Weight (kg): 68.000 Medications Active Meds + DC'd Last 24 Hrs Piperacillin Sod/Tazobactam Sod (ZOSYN 3.375GM) 3.375 GM Q8H IV (DC) Sodium Chloride (SODIUM CHLORIDE 0.9% 100 ML) 1 00 ML Cholecalciferol (VITAMIN D) 1,000 INTL.UNITS NIDHI LY PO (CKD) Tamsulosin HCl (Flomax 0.4 mg) 0.4 MG PC DIN PO Acetaminophen (TYLENOL) 650 MG Q4H PRN PRN PO Docusate Sodium (COLACE) 100 MG BID PRN PRN PO Haloperidol (HALDOL) 10 MG BID PO Hydralazine HCl (APRESOLINE) 10 MG Q6H PRN PRN I V Ondansetron HCl (ZOFRAN) 4 MG Q4H PRN PRN IV Benztropine Mesylate (COGENTIN) 1 MG DAILY PO Dextrose/Water (DEXTROSE 10% IN WATER) 125 ML DIR PRN IV (CKD) Dextrose/Water (DEXTROSE 10% IN WATER) 250 ML DIR PRN IV (CKD) Glucagon (GLUCAGON) 1 MG ASDIR PRN IM Insulin Human Lispro (HUMALOG) 0 AC HS SUBQ Physical Exam General appearance: alert, awake, oriented Head/eyes: atraumatic, clear cornea, normal conj unctiva/sclera, normocephalic ENT: normal nose Neck: supple/no meningismus Cardiovascular: normal heart sounds Respiratory: decreased breath sounds, wheezes, a erating well, no distress Abdomen: non-tender, soft Genitourinary: urinary catheter, urine Extremities: no edema Results Findings/Data: Laboratory Tests 10/25 10/25 10/25 10/25 10/24 1634 1046 0739 0420 1951 Chemistry Sodium (134 - 147 mEq/L) 138 Potassium (3.4 - 5.0 mEq/L) 4.0 Chloride (100 - 108 mEq/L) 108 Carbon Dioxide (21 - 33 mEq/l) 27 Anion Gap (0 - 20) 7 BUN (7 - 18 mg/dL) 14 Creatinine (0.6 - 1.3 mg/dL) 0.9 Glomerular Filtr Rate (80 - 90) 96.0 H Glucose (70 - 110 mg/dL) 80 POC Glucose (70 - 110 MG/DL) 127 H 123 H 92 154 H Calcium (8.0 - 10.5 mg/dL) 7.8 L Laboratory Tests 10/25 0420 Hematology WBC (4.5 - 11.0 x10 3/uL) 15.1 H RBC (4.00 - 5.60 x10 6/uL) 4.39 Hgb (12.5 - 16.9 g/dL) 12.6 Hct (37.5 - 50.7 %) 39.1 MCV (81.0 - 99.0 fL) 89.1 MCH (27.0 - 33.0 pg) 28.7 MCHC (33.0 - 37.0 g/dL) 32.2 L RDW (11.5 - 14.5 %) 13.8 Plt Count (150 - 400 x10 3/uL) 421 H MPV (7.0 - 9.0 fL) 9.3 H Neut % (Auto) (56.0 - 77.0 %) 81.1 H Lymph % (Auto) (14.0 - 32.0 %) 10.6 L Crosby % (Auto) (4.8 - 9.0 %) 4.4 L Eos % (Auto) (0.3 - 3.7 %) 2.4 Baso % (Auto) (0.0 - 2.0 %) 0.5 Neut # (Auto) (2.0 - 7.6 x10 3/uL) 12.30 H Lymph # (Auto) (1.0 - 3.8 x10 3/uL) 1.60 Crosby # (Auto) (0.1 - 0.8 x10 3/uL) 0.66 Eos # (Auto) (0.0 - 0.2 x10 3/uL) 0.36 H Baso # (Auto) (0.0 - 0.2 x10 3/uL) 0.07 Abs Immat Gran (auto) (0.00 - 0.03 x10 3/uL) 0. 15 H Add Manual Diff NO Immature Gran % (0.0 - 2.0 %) 1.0 Nucleated RBC % (0 - 0 %) 0.0 Nucleated RBCs # (Man) (0.0 - 0.1 x10 3/uL) 0.0 0 Diagnosis, Assessment Plan Free Text A P: Assessment and Plan: CHANDRA (Resolved) -Renal function improved and wnl, johns to gravi ty, s/p bicarb gtt. -2/2 post-obstrucitve uropathy, monitor for post -obstructive diuresis. -UA, urine lytes requested and noted, no signifi cant proteinuria. -Per Urology note: Reportedly the patient had 3L of urine in his bladder. CT abdomen from [place] showed that the patien t has a very large distended bladder with hydroureteronep hrosis and there does appear to be maybe a forniceal rupture or some back pressure into the kidneys c ausing some inflammation and possibly a small amount of u rine to come out through the forniceal areas that I do not see an actual ruptured ureter. The patien t's creatinine has improved. His symptoms have totally re solved with catheter placement. This can be managed conservatively. The patient will follow up as an outpatient. -Avoid nephrotoxicity monitor renal function and UOP Hypokalemia/Hypocalcemia/Hypomagnesemia -Vitamin D deficiency, vitamin D supplement. -Monitor for post-obstructive diuresis and elect rolyte imbalance Urinary Retention/BPH -Johns to gravity, Urology following, on Tamsulo sin -Per Urology note: Reportedly the patient had 3L of urine in his bladder. CT abdomen from [place] showed that the patien t has a very large distended bladder with hydroureteronep hrosis and there does appear to be maybe a forniceal rupture or some back pressure into the kidneys c ausing some inflammation and possibly a small amount of u rine to come out through the forniceal areas that I do not see an actual ruptured ureter. The patien t's creatinine has improved. His symptoms have totally re solved with catheter placement. This can be managed conservatively. The patient will follow up as an outpatient. HTN -BP acceptable, monitor, on PRN IV hydralazine Schizophrenia -Home medications resumed Fever -Low grade fever on 10/19/22, blood cx (10/20/22): NGTD, B/L LE venous doppler (): Negative for DVT, on empiric abx per [facility] team. at 1914 RPT #:[id number] END OF REPORT 2022-10-25 10:44:00-00:00 [id number] [place] [address] PATIENT NAME: MATHEW CASTILLO ADMIT DATE: 10/16/22 ACCOUNT NO: [id number] ROOM NO: G.6630 AGE: 62 REPORT TYPE: PROGRESS NOTE SEX: M ADMITTING PHYSICIAN:Salinas Alba MD ATTENDING PHYSICIAN:Salinas Alba MD DATE: 10/24/2022 SUBJECTIVE: The patient examined. Chart reviewed . Events of last 24 hours noted. The patient clinically is doing fair. He remains awake and alert. Denies any new complaints. Remains afebrile. No nausea, vomiting reported. No diarrhea reported. He is ambulating within the r oom. CURRENT MEDICATIONS: Include benztropine, cholec alciferol, lispro insulin, tamsulosin, haloperidol, Zosyn IV, Tylenol p.r.n ., docusate sodium p.r.n., glucagon p.r.n., hydrocodone bitartrate p.r.n., hydralazine p.r.n., ondansetron p.r.n. PHYSICAL EXAMINATION: GENERAL: The patient is resting comfortably in b ed. He is awake and alert, does not appear to be toxic, does not appear to be in any acute distress. VITAL SIGNS: Temperature maximum in last 24 hour s is 37.0 degrees Celsius. Current temperature is 37.1 degrees Celsius, blo od pressure is 118/70, respirations 16 per minute, pulse is 80 per bryan te. The patient's weight is around 68 kg. HEENT: Head is atraumatic and normocephalic. Pup ils are equal, round and reacting to light and accommodation bilaterally. Extraocular movements are intact. Oropharynx is clear. Oral hygiene is lyric r. NECK: Supple. JVD is absent. No carotid bruit, t hyromegaly, or cervical lymphadenopathy. LUNGS: There is fair air entry bilaterally. CARDIOVASCULAR: S1, S2 audible. No murmur, rick p, S3 or S4 appreciated. ABDOMEN: Soft and slightly bulging. The patient has mild suprapubic area tenderness. No hepatosplenomegaly. Bowel sounds are normoactive. Has minimal tenderness at the renal angles bilaterally. GENITOURINARY: The patient has indwelling Johns catheter in place. The catheter appears to be working fine and has clear urine and being drained into the bag. EXTREMITIES: Both calves are soft. No calf tende rness. No pedal edema. Peripheral pulses are faintly palpable bilateral ly. SKIN: The patient's peripheral IV sites are cielo n without any evidence of phlebitis. The lower abdominal discomfort has im proved. He has an indwelling Johns catheter in place. LABORATORY DATA: No new laboratory studies avail able to review for today. The patient's blood cultures x2 done on October 20 are negative so far at 4 days of incubation. ASSESSMENT AND PLAN: The patient with multiple c omorbidities including PATIENT NAME: MATHEW CASTILLO ACCOUNT #: G [id number] prostatic symptoms for over 2 years, was admitte d through Emergency Room initially to hospital in [facility] with urinary retention of 2 days' duration and was found to have some e xtravasation of urine in the peritoneal cavity. The patient was treated with IV antibiotics and had a Johns catheter inserted and about 3 liters of urine was drained and the Johns was left in place and he was transferred to [facility] for urology evaluation. The patient was evaluated by Dr. Dave Jones and is being managed conservatively at the presen t time. The patient initially showed improvement in his condition and subsequent ly he had developed low-grade temperature and marked leukocytosis of around 19,000. He had his antibi otics changed to IV Zosyn. Clinically, he never looked toxic and there is a possibility that fever and leukocytosis could have been secondary t o noninfectious causes. He had further workup done and was found to have elevated D-dim er; however, bilateral lower extremity venous Doppler studies were negative f or deep vein thrombosis. The patient otherwise remains hemodynamically stable and he is making progress, continues to be afebrile. He is due to finish hi s antibiotics tomorrow. We will for now, keep him on th e antibiotic and if his blood cultures are negative after 5 days of incubation, then we will conside r discontinuation of his antibiotics tomorrow. Discussed with the patient 's nursing staff. Dictated By: Skip Jaffe MD Date Dictated: 10/25/2022 10:44:58 Date Transcribed: 10/25/2022 11:24:45 HIGGINS/JENNI Receipt ID: [id number] Authenticated and Edited by Skip Jaffe MD On 11/02/22 2:23:50 AM Electronically Signed by Skip Jaffe MD on at 0323 PATIENT NAME: MATHEW CASTILLO ACCOUNT #: G [id number] 2022-10-24 19:41:00-00:00 [facility]L [facility] ([facility]) Infectious Dis. Progress Note REPORT#:[id number] REPORT STATUS: Signed DATE:10/24/22 TIME: 1940 PATIENT: MATHEW CASTILLO UNIT #: [id number] ROOM/BED: 6630-1 : 59 AGE: 62 SEX: M ATTEND: Salinas Alba MD ADM AUTHOR: Skip Jaffe MD * ALL edits or amendments must be made on the el ectronic/computer document * Subjective Internal record Patient examined, chart reviewed, events of last 24 hours noted. See full dictated progress note for further details. ASSESSMENT AND PLAN: No new development. Patient remains awake and co mfortable. No new issues reported. Continues to be afebrile. Recurrent fever and leukocytosis improved. Recent complicated urinary tract infection with urinary retention. Bilateral lower extremity venous Doppler studies negative for DVT. D-dimer is elevated. CT angiogram of chest done on October 23, 2022 show ed no pulmonary embolus. Extensive colonic wall thickening of the visualized splenic flexure compatible with colitis incompletely evaluated. Small right pleural effusion with right lower lobe atelectasis. Left upper lobe bronchie ctasis. Minimal anterior pericardial effusion. Type 4 hiatal hernia measu res 7.6 cm to 6.5 cm. Gastric fundal wall thickening. Correlate boucher w ith recent endoscopy is recommended to help exclude an infiltrating mucosal process. Repeat urinalysis done on 2022 showed 1+ leukocyte esterase, more than 50 wbc's, more than 50 rbc's, trace bacteria. Repeat CBC with manual differentia done today sh ows no significant left shift with 8% band forms. Bilateral lower extremity ve nous Doppler studies Show no evidence of DVT in the lower extremities. DVT prophylaxis as per primary team. Continue empiric IV antibiotics for now until 2022. Monitor patient closely for any diarrhea. Electronically Signed by Skip Jaffe MD on at 0316 [facility] #:[id number] END OF REPORT 2022-10-24 19:12:00-00:00 [id number] [place] [address] PATIENT NAME: MATHEW CASTILLO ADMIT DATE: 10/16/22 ACCOUNT NO: [id number] ROOM NO: [facility] AGE: 62 REPORT TYPE: PROGRESS NOTE SEX: M ADMITTING PHYSICIAN:Salinas Alba MD ATTENDING PHYSICIAN:Salinas Alba MD DATE: 10/23/2022 SUBJECTIVE: The patient examined. Chart reviewed . Events of last 24 hours noted. The patient clinically is not much change d. Remains awake and alert. No new issues reported. Remains afebrile. No jerry sea or vomiting reported. No diarrhea reported. The patient clinically remain s hemodynamically otherwise stable. CURRENT MEDICATIONS: Include benztropine, cholec alciferol, lispro insulin, tamsulosin, haloperidol, Zosyn IV, Tylenol p.r.n ., docusate sodium p.r.n., glucagon p.r.n., hydrocodone bitartrate p.r.n., hydralazine p.r.n., ondansetron p.r.n. PHYSICAL EXAMINATION: GENERAL: The patient is resting comfortably in b ed. He is awake and alert, does not appear to be toxic, does not appear to be in any acute distress. VITAL SIGNS: Temperature maximum in last 24 hour s is 37.0 degrees Celsius. Current temperature is 37.1 degrees Celsius, blo od pressure is 118/70, respirations 16 per minute, pulse is 80 per bryan te. The patient's weight is around 68 kg. HEENT: Head is atraumatic and normocephalic. Pup ils are equal, round and reacting to light and accommodation bilaterally. Extraocular movements are intact. Oropharynx is clear. Oral hygiene is lyric r. NECK: Supple. JVD is absent. No carotid bruit, t hyromegaly, or cervical lymphadenopathy. LUNGS: There is fair air entry bilaterally. CARDIOVASCULAR: S1, S2 audible. No murmur, rick p, S3 or S4 appreciated. ABDOMEN: Soft and slightly bulging. The patient has mild suprapubic area tenderness. No hepatosplenomegaly. Bowel sounds are normoactive. Has minimal tenderness at the renal angles bilaterally. GENITOURINARY: The patient has indwelling Johns catheter in place. The catheter appears to be working fine and has clear urine and being drained into the bag. EXTREMITIES: Both calves are soft. No calf tende rness. No pedal edema. Peripheral pulses are faintly palpable bilateral ly. SKIN: The patient's peripheral IV sites are cielo n without any evidence of phlebitis. The lower abdominal discomfort has im proved. LABORATORY DATA: Serum sodium is 138, po tassium 3.8, chloride 107, bicarbonate 29, glucose 98. BUN 11, creatinine 1.0, estimate d GFR is 85, calcium is 7.6, magnesium 1.53. CT angiogram of chest with P E protocol done today shows no evidence of pulmonary PATIENT NAME: MATHEW CASTILLO ACCOUNT #: G [id number] embolism, extensive colonic wall thicken ing of the visualized splenic flexure. Blood cultures are negative so far at 3 days of incubation. ASSESSMENT AND PLAN: The patient with m ultiple medical problems was initially admitted to hospital in [place] where he higgins d presented with urinary retention. The patient was found to have 3 liter s of urine in the bladder. He had a Johns catheter inserte d and subsequently was transferred to [facility] for urology evaluation. He was initially treated with IV ceftriaxone, but more recently, he started to have fever and high leukocytosis. He had blood cultures done and was empirically switched to IV Zosyn. His blood cultures so far have been negat nya. Clinically, he has made progress. His D-dimer was found to be elevated; however, bilateral lower extremity venous Doppler studies were negative a nd his CT of chest with PE protocol is also negative. The patient clinicall y remains hemodynamically stable. He will be continued on IV Zosyn until 0 10/25/2022. Discussed with the patient's nursing staff. Dictated By: Skip Jaffe MD Date Dictated: 10/24/2022 19:12:07 Date Transcribed: 10/24/2022 19:51:44 HIGGINS/GLORIA Receipt ID: [id number] Authenticated and Edited by Skip Jaffe MD On 11/02/22 2:23:34 AM Electronically Signed by Skip Jaffe MD on at 0323 PATIENT NAME: MATHEW CASTILLO ACCOUNT #: G [id number] 2022-10-24 16:08:00-00:[address] [facility] ([facility]) Nephrology Progress Note REPORT#:[id number] REPORT STATUS: Signed DATE:10/24/22 TIME: 1608 PATIENT: MATHEW CASTILLO UNIT #: [id number] ROOM/BED: 6630-1 : 59 AGE: 62 SEX: M ATTEND: Salinas Lopez MD ADM AUTHOR: Carmen Kemp * ALL edits or amendments must be made on the el ectronic/computer document * Carmen Kemp 10/24/22 1608: Subjective Chief complaint: Concern for ruptured ureter HPI: The patient seen and examined. Resting in bed, t olerating PO intake w/o any issue. Johns to gravity, good UOP. Review of Systems ROS comments: A 12 point review of systems obtained and is neg ative unless specified in HPI Objective General VS/I O: Vital Signs: Date Time Temp Pulse Resp B/P B/P Pulse O2 O2 F low FiO2 Mean Ox Delivery Rate 10/24 1656 36.8 64 15 107/68 80.8 97 Nasal cannula 10/24 1120 37.0 77 16 115/72 86.5 99 Room air 10/24 0348 36.6 73 16 109/69 82.0 97 Room air 10/23 2344 37.0 74 16 111/71 84.0 98 Room air 10/23 1900 37.1 69 16 108/67 80.5 97 Room air 24 hour I O ending at 0700: 10/24 0700 10/23 1900 Intake Total 970 Output Total 2350 Balance -1380 Intake, Oral 970 Number 0 Bowel Movements Output, Urine 2350 PATIENT WEIGHT: Weight (lb): Weight (oz): Weight (kg): 68.000 Medications Active Meds + DC'd Last 24 Hrs Piperacillin Sod/Tazobactam Sod (ZOSYN 3.375GM) 3.375 GM Q8H IV Sodium Chloride (SODIUM CHLORIDE 0.9% 100 ML) 1 00 ML Cholecalciferol (VITAMIN D) 1,000 INTL.UNITS NIDHI LY PO (CKD) Tamsulosin HCl (Flomax 0.4 mg) 0.4 MG PC DIN PO Acetaminophen (TYLENOL) 650 MG Q4H PRN PRN PO Docusate Sodium (COLACE) 100 MG BID PRN PRN PO Haloperidol (HALDOL) 10 MG BID PO Hydralazine HCl (APRESOLINE) 10 MG Q6H PRN PRN I V Ondansetron HCl (ZOFRAN) 4 MG Q4H PRN PRN IV Benztropine Mesylate (COGENTIN) 1 MG DAILY PO Dextrose/Water (DEXTROSE 10% IN WATER) 125 ML DIR PRN IV (CKD) Dextrose/Water (DEXTROSE 10% IN WATER) 250 ML DIR PRN IV (CKD) Glucagon (GLUCAGON) 1 MG ASDIR PRN IM Insulin Human Lispro (HUMALOG) 0 AC HS SUBQ Dietitian nutrition assessment The data set between the solid lines has been im ported from the dietitian's assessment. BMI Calculated: 22.1 Nutrition related diagnosis: Nutrition diagnosis details: Nutrition problem: Nutrition etiology: Nutrition signs and symptoms: Nutrition prescription: Dietitian name: Assessment completed: Physical Exam General appearance: alert, awake, no acute distr ess Head/eyes: atraumatic, clear cornea, normal conj unctiva/sclera, normocephalic ENT: normal nose Neck: supple/no meningismus Cardiovascular: normal heart sounds Respiratory: decreased breath sounds, wheezes, a erating well, no distress Abdomen: non-tender, soft Genitourinary: urinary catheter, urine Extremities: no edema Results Findings/Data: Laboratory Tests 10/24 10/23 0721 1956 Chemistry POC Glucose (70 - 110 MG/DL) 87 139 H Diagnosis, Assessment Plan Free Text A P: Assessment and Plan: CHANDRA (Resolved) -Renal function improved and wnl, johns to gravi ty, s/p bicarb gtt. -2/2 post-obstrucitve uropathy, monitor for post -obstructive diuresis. -UA, urine lytes requested and noted, no signifi cant proteinuria. -Per Urology note: Reportedly the patient had 3L of urine in his bladder. CT abdomen from [place] showed that the patien t has a very large distended bladder with hydroureteronep hrosis and there does appear to be maybe a forniceal rupture or some back pressure into the kidneys c ausing some inflammation and possibly a small amount of u rine to come out through the forniceal areas that I do not see an actual ruptured ureter. The patien t's creatinine has improved. His symptoms have totally re solved with catheter placement. This can be managed conservatively. The patient will follow up as an outpatient. -Avoid nephrotoxicity monitor renal function and UOP Hypokalemia/Hypocalcemia/Hypomagnesemia -Vitamin D deficiency, vitamin D supplement. -Monitor for post-obstructive diuresis and elect rolyte imbalance Urinary Retention/BPH -Johns to gravity, Urology following, on Tamsulo sin -Per Urology note: Reportedly the patient had 3L of urine in his bladder. CT abdomen from [place] showed that the patien t has a very large distended bladder with hydroureteronep hrosis and there does appear to be maybe a forniceal rupture or some back pressure into the kidneys c ausing some inflammation and possibly a small amount of u rine to come out through the forniceal areas that I do not see an actual ruptured ureter. The patien t's creatinine has improved. His symptoms have totally re solved with catheter placement. This can be managed conservatively. The patient will follow up as an outpatient. HTN -BP acceptable, monitor, on PRN IV hydralazine Schizophrenia -Home medications resumed Fever -Low grade fever on 10/19/22, blood cx (10/20/22): NGTD, B/L LE venous doppler (): Negative for DVT, on empiric abx per [facility] team. Discussed the plan with the patient, patient's dennys del valle, and . Toby Koehler 10/24/222124: Attestations Physician Attestation Reviewed findings plan: Patient examined Renal function improved and wnl , johns to gravity, -2/2 post-obstrucitve uropathy, replace electrol ytes as needed, emperic antibiotics per admitting team, agree with above A/P at 1740 at 2125 RPT #:[id number] END OF REPORT 2022-10-23 21:33:00-00:00 [facility] ([facility]) Internal Medicine Prog. Note REPORT#:[id number] REPORT STATUS: Signed DATE:10/23/22 TIME: 2132 PATIENT: MATHEW CASTILLO UNIT #: [id number] ROOM/BED: G6630-1 : 59 AGE: 62 SEX: M ATTEND: Salinas Alba MD ADM AUTHOR: Sofia Cheng QA TEST LEAD * ALL edits or amendments must be made on the [employer]/computer document * Subjective Chief complaint: Abdominal distention, hydronephrosis HPI: 62-year-old male with last medical history of, B PH, transferred from [place] for urology evaluation and treatment sec ondary to possible ruptured ureter. As per patient his a bdomen was distended for at least for 2 days and he was having difficulty urinating. Patient present ed to outside facilityImaging revealed severe bilateral hydronephrosis with ev idence of active urine extravasation and large amou nt of urine in the bladder pushing all the way up to the abdomen. As per patient' s daughter about 3 L of fluid was removed within 10 minutes of Johns insertion. Patient reports he h as been experiencing urinary hesitancy for the past 2 to 3 years. Den ies seeing a urologist. Patient denies fever, chills, dysuria, robert turia, or other associated symptoms. Patient denies shortness of breath, chest pain, nausea, vomitin g, diarrhea, constipation. Admission vital signs blood pressure 146/78, pul se 92, respiration 18, temperature 37.1, O2 sat 96% on room air. Abnormal labs: Hemoglobin 10.9, hematocrit 31.7, potass ium 2.8, chloride 114, CO2 18, BUN 41, creatinine 2.1, glucose 643Calcium 4.9. Review of Systems Additional notes: Constitutional: Denies: chills, fever. ENT: Denies: earache, nasal congestion, sore throat. Respiratory: Denies: hemoptysis, parox nocturnal dyspnea, pl eurisy, pleuritic pain, pneumonia, SOB, wheezing. Cardiovascular: Denies: chest pain, palpitations. GI: Reports: abdominal pain. Denies: nausea, vomiti ng. : Reports: flank pain, urinary retention. Denies: frequency, hematuria. Musculoskeletal: Arthritis: Denies: left upper, left lower, right upper, ri ght lower. Neuro: Denies: change in LOC, confusion, dizziness, fo brendan weakness, gait problem, headache, lightheaded, numbness, seizure, slurr ed speech, spinning sensation, syncope, unable to speak, vision jenni nge. Psych: Reports: anxiety. Denies: agitation, change in mental status, confusion, depression, homicidal ideation, hostile, insomn ia, stress, suicidal ideation. Objective General VS/I O: Laboratory Tests 10/23 1622 1133 0818 0625 Chemistry Sodium (134 - 147 mEq/L) 138 Potassium (3.4 - 5.0 mEq/L) 3.8 Chloride (100 - 108 mEq/L) 107 Carbon Dioxide (21 - 33 mEq/l) 29 Anion Gap (0 - 20) 6 BUN (7 - 18 mg/dL) 11 Creatinine (0.6 - 1.3 mg/dL) 1.0 Glomerular Filtr Rate (80 - 90) 84.6 Glucose (70 - 110 mg/dL) 98 POC Glucose (70 - 110 MG/DL) 139 H 79 98 92 Calcium (8.0 - 10.5 mg/dL) 7.6 L Magnesium (1.80 - 2.40 mg/dL) 1.53 L 10/22 1700 1119 0737 0637 Chemistry Sodium (134 - 147 mEq/L) 139 Potassium (3.4 - 5.0 mEq/L) 4.0 Chloride (100 - 108 mEq/L) 107 Carbon Dioxide (21 - 33 mEq/l) 30 Anion Gap (0 - 20) 6 BUN (7 - 18 mg/dL) 12 Creatinine (0.6 - 1.3 mg/dL) 1.1 Glomerular Filtr Rate (80 - 90) 75.4 L Glucose (70 - 110 mg/dL) 102 POC Glucose (70 - 110 MG/DL) 123 H 132 H 118 H 100 Calcium (8.0 - 10.5 mg/dL) 7.8 L Magnesium (1.80 - 2.40 mg/dL) 1.72 L 10/2117 2004 1707 1126 0723 0426 Chemistry POC Glucose (70 - 110 MG/DL) 148 H 102 104 95 C-Reactive Protein (<10.0 mg/L) 36.0 H 10/21 425 Chemistry Sodium (134 - 147 mEq/L) 140 Potassium (3.4 - 5.0 mEq/L) 3.0 L Chloride (100 - 108 mEq/L) 105 Carbon Dioxide (21 - 33 mEq/l) 29 Anion Gap (0 - 20) 9 BUN (7 - 18 mg/dL) 10 Creatinine (0.6 - 1.3 mg/dL) 0.9 Glomerular Filtr Rate (80 - 90) 96.0 H Glucose (70 - 110 mg/dL) 89 Calcium (8.0 - 10.5 mg/dL) 7.3 L Magnesium (1.80 - 2.40 mg/dL) 1.50 L Laboratory Tests 10/21 425 Coagulation D-Dimer (<=500 ng/mlFEU) 5949 *H Laboratory Tests 10/21 425 Hematology WBC (4.5 - 11.0 x10 3/uL) 13.9 H RBC (4.00 - 5.60 x10 6/uL) 3.97 L Hgb (12.5 - 16.9 g/dL) 11.6 L Hct (37.5 - 50.7 %) 34.9 L MCV (81.0 - 99.0 fL) 87.9 MCH (27.0 - 33.0 pg) 29.2 MCHC (33.0 - 37.0 g/dL) 33.2 RDW (11.5 - 14.5 %) 13.9 Plt Count (150 - 400 x10 3/uL) 321 MPV (7.0 - 9.0 fL) 9.1 H Seg Neutrophils % (37 - 69 %) 78 H Band Neutrophils % (0.0 - 10.0 %) 8.0 Lymphocytes % (Manual) (23 - 55 %) 8 L Monocytes % (Manual) (0 - 10 %) 4 Eosinophils % (Manual) (0.0 - 4.0 %) 2 Platelet Estimate (ADEQUATE THOUSAND) Adequate Plt Morphology Comment LARGE PLATELETS Anisocytosis NORMAL Chemistry: 10/23 1622 1133 0825 0623 Chemistry Sodium (134 - 147 mEq/L) 138 Potassium (3.4 - 5.0 mEq/L) 3.8 Chloride (100 - 108 mEq/L) 107 Carbon Dioxide (21 - 33 mEq/l) 29 BUN (7 - 18 mg/dL) 11 Creatinine (0.6 - 1.3 mg/dL) 1.0 Glucose (70 - 110 mg/dL) 98 POC Glucose (70 - 110 MG/DL) 139 H 79 98 92 Calcium (8.0 - 10.5 mg/dL) 7.6 L Magnesium (1.80 - 2.40 mg/dL) 1.53 L Vital Signs: Date Time Temp Pulse Resp B/P B/P Pulse O2 O2 F low FiO2 Mean Ox Delivery Rate 10/23 1900 37.1 69 16 108/67 80.5 97 Room air 10/23 1624 36.7 68 15 108/66 79.7 96 Room air 10/23 1131 36.9 77 15 115/70 84.7 96 Room air 10/23 0825 36.7 71 15 125/73 90.3 98 Room air 10/23 0319 36.9 72 16 105/66 79.0 97 Room air 10/22 2356 37.0 69 16 104/67 79.3 97 Room air 10/23 0700 10/22 2300 10/22 1500 Intake Total 720 150 Output Total 1100 Balance -380 150 Intake, Oral 720 150 Number 1 Bowel Movements Output, Urine 1100 Current Medications Sig/Mark Start time Last Medication Dose Route Stop Time Status Admin Iopamidol 100 ML .STK-MED ONE 10/23 1725 DC 10/05 9 IV 10/23 1726 1725 Enoxaparin Sodium 70 MG ONCE ONE 10/23 1630 DC 0 10/23 SUBQ 10/23 1631 1750 Magnesium Sulfate 100 ML ONCE ONE 10/23 1330 DC 10/23 IV 10/23 1729 1641 Piperacillin Sod/ 3.375 GM Q8H 10/20 0100 AC Tazobactam Sod IV 10/25 0059 1750 Sodium Chloride 100 ML Cholecalciferol 1,000 INTL.UNITS DAILY 10/18 090 0 CKD 10/23 PO 11/17 0859 0932 Tamsulosin HCl 0.4 MG PC DIN 10/16 1800 AC 10/05 9 PO 11/15 1759 1750 Acetaminophen 650 MG Q4H PRN PRN 10/16 1345 AC 0 10/20 PO 11/15 1344 0120 Docusate Sodium 100 MG BID PRN PRN 10/16 1345 AC PO 11/15 1344 Haloperidol 10 MG BID 10/16 1345 AC 10/23 PO 11/15 1330 2037 Hydralazine HCl 10 MG Q6H PRN PRN 10/16 1345 AC IV 11/15 1344 Ondansetron HCl 4 MG Q4H PRN PRN 10/16 1345 AC IV 11/15 1344 Benztropine Mesylate 1 MG DAILY 10/16 1330 AC PO 11/15 1329 0932 Dextrose/Water 125 ML ASDIR PRN 10/16 1130 CKD IV 11/15 1129 Dextrose/Water 250 ML ASDIR PRN 10/16 1130 CKD IV 11/15 1129 Glucagon 1 MG ASDIR PRN 10/16 1130 AC IM 11/15 1129 Insulin Human Lispro 0 AC HS 10/16 1130 AC SUBQ 11/15 1129 Recent Impressions-Last 72 Hrs ULTRASOUND - DUP VEIN ASAEL 10/21 0821 Report Impression - Status: SIGNED Entered: 10/21/2022911 IMPRESSION: No sonographic evidence for DVT Impression By: [email or web address] Raisa Sifuentes CAT SCAN - CTA CHEST FOR PE 10/24 1723 Report Impression - Status: SIGNED Entered: 10/23/20222012 IMPRESSION: 1. No pulmonary embolus. 2. Extensive colonic wall thickening of the visu alized splenic flexure compatible with colitis incompletely sujatha luated. 3. Small right pleural effusion with right lower lobe atelectasis. 4. Left upper lobe bronchiectasis. 5. Minimal anterior pericardial effusion. 6. Type 4 hiatal hernia measures 7.6 cm X 6.5 cm . 7. Gastric fundal wall thickening, correlation w ith recent endoscopy is recommended to help exclude an infi ltrating mucosal process. Impression By: [email or web address] - Hayden Rg M.D. Vital Signs Date Temp Pulse Resp B/P B/P Mean Pulse Ox FiO2 10/22-10/23 36.7-37.1 68-77 15-16 104-125/66-73 79.0-90.3 96-98 Last Documented: Result Date Time Pulse Ox 97 10/23 1899 B/P 108/67 10/23 1899 B/P Mean 80.5 10/23 1899 O2 Delivery Room air 10/23 1899 Temp 37.1 10/23 1899 Pulse 69 10/23 1899 Resp 16 10/23 1899 24 hour I O ending at 0700: 10/23 0700 10/22 1899 Intake Total 870 Output Total 1100 Balance -230 Intake, Oral 870 Number 1 Bowel Movements Output, Urine 1100 PATIENT WEIGHT: Weight (lb): Weight (oz): Weight (kg): 68.000 Diagnosis, Assessment Plan Hospital course to date: General appearance: alert, awake Head/Eyes: atraumatic, clear cornea, EOMI, normo cephalic, normal conjunctiva/ sclera, normal eyelids/periorb, PERRLA ENT: normal dentition, normal ear left, normal e ar right, normal nose, normal pharynx, normal sinus Cardiovascular: regular rate rhythm Respiratory: decreased breath sounds, clear to a uscultation, no distress, no tenderness Abdomen/GI: active bowel sounds, soft Abdomen quadrants: LLQ normal bowel sounds, LLQ tenderness, LUQ nor mal bowel sounds, RLQ normal bowel sounds, RLQ tenderness, RUQ normal bowel s ounds Genitourinary: johns Extremities: moves all, no edema-all extremities , normal capillary refill, normal range of motion, normal sensory, normal m otor function Neuro/SHOULDER SAWYER: 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 Rupture of ureter Free Text DxA P Notes Free text DxA P notes: Assessment: 62-year-old male with last medical history of, B PH, transferred from [place] for urology evaluation and treatment sec ondary to possible ruptured ureter. As per patient his a bdomen was distended for at least for 2 days and he was having difficulty urinating. Patient present ed to outside facilityImaging revealed severe bilateral hydronephrosis with ev idence of active urine extravasation and large amou nt of urine in the bladder pushing all the way up to the abdomen. As per patient' s daughter about 3 L of fluid was removed within 10 minutes of Johns insertion. Patient reports he h as been experiencing urinary hesitancy for the past 2 to 3 years. 1. Abdominal distention, severe bilateral hydron ephrosis, large amount of urinary retention -Status post Johns insertion large amount of ur ine was obtained 2. Acute kidney injury 3. Hypokalemia/hypocalcemia, hyperchloremia 4. Metabolic acidosis 5. Possible BPH 6. Severe bilateral hydronephrosis 7. Hypertension 8. Schizophrenia Plan of care: Admit patient for further evaluation and treatme nt Urology consultation in place Keep Johns to bedside drainage I's and O's Monitor renal function Nephrology consultation Replace electrolytes Start tamsulosin Bicarb drip started Repeat CT of the abdomen and pelvis if needed Repeat labs Further recommendation based on patient's clinic al course 10/17/2022 Vital signs within normal limits Hypokalemia 3.2, hypomagnesemia 1.50 Renal function is improved, discontinue bicarb d rip, continue electrolyte control-replace as needed per nephro Urology is following Continue tamsulosin BP control-on hydralazine as needed, pain contro l Continue telemetry monitoring, intake and output , fall precaution Follow-up labs, continue medications and support nya care 10/18/2022 BP is controlled Hypocalcemia 7.4, hypomagnesemia 1.5, Hypokalemi a 3.1 MRSA surveillance screen pending results Uro and Nephro are following Started on cholecalciferol p.o., still on tamsul osin Electrolyte control- magnesium and potassium rep laced Fall precaution Follow-up labs, continue medications and support nya care 10/19/2022 Vital signs within normal limits, POC glucose is controlled Hypocalcemia 7.5, hypomagnesemia 1.65 MRSA surveillance screen is negative Continue electrolyte control, replace as needed Patient is able to tolerate p.o. intake Renal function is improved, discontinue bicarb drip today, continue BP control on IV hydralazine per nephro Continue tamsulosin p.o. Pain control, glycemic control, fall precaution Follow-up labs, continue medications and present care 10/20/2022 Patient has no new complaints, stable Hypocalcemia Blood culture pending results X-ray of the chest shows mild interstitial pulmo nary edema. No focal consolidation. Consultants evaluations noted Electrolyte control replace magnesium Started on IV antibiotic Zosyn Consult placed to Dr. Jaffe for patients UTI Troponin I Blood precaution, glycemic control Follow-up EKG, labs, continue medications and sarah pportive care 10/21/2022 POC glucose is controlled D-dimer 5949 Hypokalemia 3.0, hypomagnesemia 1.50, hypocalcem ia 7.3 Blood culture shows no growth after 48 hours ECG: Normal sinus rhythm No evidence of deep vein thrombosis ID has seen the patient. Con tinue empiric IV antibiotics-Zosyn, tamsulosin p.o. for now. Continue electrolyte control replace potassium a nd magnesium Pain control, glycemic control Follow-up electrolytes and labs, continue medica tions and present 10/22/2022 Vital signs within normal limits, POC glucose is controlled Hypocalcemia 7.8, hypomagnesemia 1.72 No sonographic evidence for DVT Blood culture shows no growth after 48 hours Patient with good urine outp ut, renal function is improved, patient will follow- up as an outpatient Still on IV antibiotic Zosyn, tamsulosin p.o. Continue electrolyte control-replace magnesium Continue pain control, glycemic control Follow-up labs, continue medications and support nya care October 23, 2022: Continue IV antibiotic as pe r ID plan is to complete antibiotic on 25 October 2022 We will discharge patient home after that with Aris ly in place Plan is to follow-up with urology outpatient This was explained to patient's daughter Continue with current medications Fall precaution Electronically Signed by Sofia Cheng QA TEST LEAD on 0 10/25/22 at 0250 Electronically Signed by Salinas Alba MD o n 10/25/22 at 0842 RPT #:[id number] END OF REPORT 2022-10-23 18:51:00-00:00 [facility] ([facility]) Infectious Dis. Progress Note REPORT#:[id number] REPORT STATUS: Signed DATE:10/23/22 TIME: 1850 PATIENT: MATHEW CASTILLO UNIT #: [id number] ROOM/BED: 6630-1 : 59 AGE: 62 SEX: M ATTEND: Salinas Alba MD ADM AUTHOR: Skip Jaffe MD * ALL edits or amendments must be made on the el ectronic/computer document * Subjective Internal record Patient examined, chart reviewed, events of last 24 hours noted. See full dictated progress note for further details. ASSESSMENT AND PLAN: No significant change in general condition. Marely ent clinically is doing about the same. Resting comfortably in bed. No diarrhe a reported. No new issues reported. Recurrent fever and leukocytosis improved. Recent complicated urinary tract infection with urinary retention. Bilateral lower extremity venous Doppler studies negative for DVT. D-dimer is elevated. CT angiogram of chest done on October 23, 2022 show ed no pulmonary embolus. Extensive colonic wall thickening of the visualized splenic flexure compatible with colitis incompletely evaluated. Small right pleural effusion with right lower lobe atelectasis. Left upper lobe bronchie ctasis. Minimal anterior pericardial effusion. Type 4 hiatal hernia measu res 7.6 cm to 6.5 cm. Gastric fundal wall thickening. Correlate boucher w ith recent endoscopy is recommended to help exclude an infiltrating mucosal process. Repeat urinalysis done on 2022 showed 1+ leukocyte esterase, more than 50 wbc's, more than 50 rbc's, trace bacteria. Repeat CBC with manual differentia done today sh ows no significant left shift with 8% band forms. Bilateral lower extremity ve nous Doppler studies Show no evidence of DVT in the lower extremities. DVT prophylaxis as per primary team. Continue empiric IV antibiotics for now until 2022. Monitor patient closely for any diarrhea. Electronically Signed by Skip Jaffe MD on at 0256 [facility] #:[id number] END OF REPORT 2022-10-23 18:27:00-00:00 [id number] [address] PATIENT NAME: MATHEW CASTILLO ADMIT DATE: 10/16/22 ACCOUNT NO: [id number] ROOM NO: .30 AGE: 62 REPORT TYPE: PROGRESS NOTE SEX: M ADMITTING PHYSICIAN:Salinas Alba MD ATTENDING PHYSICIAN:Salinas Alba MD DATE: 10/22/2022 SUBJECTIVE: The patient examined. Chart reviewed . Events of last 24 hours noted. The patient clinically is not muc h changed. He remains awake and alert. Resting comfortably in bed. Denies any new comp laints. He is ambulating within the room. Remains afebrile. No nausea or vomiting reported. No diarrhea reported. Continues to have indwelling Johns catheter in place. Remains afebrile with a low-grade temperature of up to 37.6 degrees Celsius. CURRENT MEDICATIONS: Include benztropine, cholec alciferol, lispro insulin, tamsulosin, haloperidol, Zosyn IV, Tylenol p.r.n ., docusate sodium p.r.n., glucagon p.r.n., hydrocodone bitartrate p.r.n., hydralazine p.r.n., ondansetron p.r.n. PHYSICAL EXAMINATION: GENERAL: The patient is resting comfortably in b ed. He is awake and alert, does not appear to be toxic, does not appear to be in any acute distress. VITAL SIGNS: Temperature maximum in last 24 hour s is 37.6 degrees Celsius. Current temperature is 37.1 degrees Celsius, blo od pressure is 118/70, respirations 16 per minute, pulse is 80 per bryan te. The patient's weight is around 68 kg. HEENT: Head is atraumatic and normocephalic. Pup ils are equal, round and reacting to light and accommodation bilaterally. Extraocular movements are intact. Oropharynx is clear. Oral hygiene is lyric r. NECK: Supple. JVD is absent. No carotid bruit, t hyromegaly, or cervical lymphadenopathy. LUNGS: There is fair air entry bilaterally. CARDIOVASCULAR: S1, S2 audible. No murmur, rick p, S3 or S4 appreciated. ABDOMEN: Soft and slightly bulging. The patient has mild suprapubic area tenderness. No hepatosplenomegaly. Bowel sounds are normoactive. Has minimal tenderness at the renal angles bilaterally. GENITOURINARY: The patient has indwelling Johns catheter in place. The catheter appears to be working fine and has clear urine and being drained into the bag. EXTREMITIES: Both calves are soft. No calf tende rness. No pedal edema. Peripheral pulses are faintly palpable bilateral ly. SKIN: The patient's peripheral IV sites are cielo n without any evidence of phlebitis. LABORATORY DATA: Serum sodium is 139, po tassium 4.0, chloride 107, bicarbonate 30, glucose 102, BUN 12, cre atinine 1.1, estimated GFR is 75.4, calcium is 7.8, magnesium is 1.72. Blood cultures x2 are negativ e so far at 48 hours of incubation. PATIENT NAME: MATHEW CASTILLO ACCOUNT #: [id number] ASSESSMENT AND PLAN: The patient with multiple m edical problems was initially admitted through the Emergency Room wher e he was transferred from [facility] because of urinary retention. The patie nt presented to [facility] with 2 days' histor y of not able to pass any urine and he was found to have 3 liters urine in his bladder with some ext ravasation of urine into the peritoneal cavity. The patient had a Johns dg ter placed and bladder was relieved. He was transferred to [facility] for evaluation by Urology Service. The patient was k ept on IV ceftriaxone. Initially, he showed improve ment in his condition; however, he had a temperature of up to 37.8 degrees Celsiu s deputy manager on 10/20/2022, and at that time, he had stover cultures done and he was also found to h ave marked leukocytosis of 19,000. The patient clinically; however, remains hemodynamically stable. He had further workup done and inflammatory markers including D-dimer were elevated; however, his bilateral lower extremity venous Doppler studies were negative for DVT, but that d oes not rule out pelvic DVT. Clinically, he remains hemodynamically stable and was started on IV Zos yn empirically, which he is still receiving and he is due to complete it on 10/25/2022. For now, we will keep him on the same regimen along with other sarah pportive treatments. DVT prophylaxis as per primary team's orders . Discussed with the patient's nursing staff. Dictated By: Skip Jaffe MD Date Dictated: 10/23/2022 18:27:31 Date Transcribed: 10/23/2022 18:54:06 ESTRADA/GLORIA Receipt ID: [id number] Authenticated and Edited by Skip Jaffe MD On 11/02/22 2:23:13 AM Electronically Signed by Skip Jaffe MD on at 0225 PATIENT NAME: MATHEW CASTILLO ACCOUNT #: [id number] 2022-10-23 13:24:00-00:00 [facility] Nephrology Progress Note REPORT#:[id number] REPORT STATUS: Signed DATE:10/23/22 TIME: 1324 PATIENT: MATHEW CASTILLO UNIT #: [id number] ROOM/BED: [place] [address] : 59 AGE: 62 SEX: M ATTEND: Salinas Alba MD ADM AUTHOR: Carmen Kemp * ALL edits or amendments must be made on the [employer]/computer document * Carmen Kemp 10/23/22 1324: Subjective Chief complaint: Concern for ruptured ureter HPI: The patient seen and examined. Resting in bed, t olerating PO intake w/o any issue. Johns to gravity, good UOP. Review of Systems ROS comments: A 12 point ROS is obtained and is negative unles s specified in HPI Objective General VS/I O: Vital Signs: Date Time Temp Pulse Resp B/P B/P Pulse O2 O2 F low FiO2 Mean Ox Delivery Rate 10/23 1624 36.7 68 15 108/66 79.7 96 Room air 10/23 1131 36.9 77 15 115/70 84.7 96 Room air 10/23 0825 36.7 71 15 125/73 90.3 98 Room air 10/23 0319 36.9 72 16 105/66 79.0 97 Room air 10/22 2356 37.0 69 16 104/67 79.3 97 Room air 10/22 1849 37.2 75 16 109/68 82.0 94 Room air 24 hour I O ending at 0700: 10/23 0700 10/22 1900 Intake Total 870 Output Total 1100 Balance -230 Intake, Oral 870 Number 1 Bowel Movements Output, Urine 1100 PATIENT WEIGHT: Weight (lb): Weight (oz): Weight (kg): 68.000 Medications Active Meds + DC'd Last 24 Hrs Iopamidol (ISOVUE-300 100ML) 100 ML .STK-MED ONE IV (DC) Enoxaparin Sodium (lovENOX) 70 MG ONCE ONE SUBQ (DC) Magnesium Sulfate (MAGNESIUM SULFATE 4GM/SWFI 10 0ML) 100 ML ONCE ONE IV (DC) Piperacillin Sod/Tazobactam Sod (ZOSYN 3.375GM) 3.375 GM Q8H IV Sodium Chloride (SODIUM CHLORIDE 0.9% 100 ML) 100 ML Cholecalciferol (VITAMIN D) 1,000 INTL.UNITS NIDHI LY PO (CKD) Tamsulosin HCl (Flomax 0.4 mg) 0.4 MG PC DIN PO Acetaminophen (TYLENOL) 650 MG Q4H PRN PRN PO Docusate Sodium (COLACE) 100 MG BID PRN PRN PO Haloperidol (HALDOL) 10 MG BID PO Hydralazine HCl (APRESOLINE) 10 MG Q6H PRN PRN I V Ondansetron HCl (ZOFRAN) 4 MG Q4H PRN PRN IV Benztropine Mesylate (COGENTIN) 1 MG DAILY PO Dextrose/Water (DEXTROSE 10% IN WATER) 125 ML DIR PRN IV (CKD) Dextrose/Water (DEXTROSE 10% IN WATER) 250 ML DIR PRN IV (CKD) Glucagon (GLUCAGON) 1 MG ASDIR PRN IM Insulin Human Lispro (HUMALOG) 0 AC HS SUBQ Dietitian nutrition assessment The data set between the solid lines has been im ported from the dietitian's assessment. BMI Calculated: 22.1 Nutrition related diagnosis: Nutrition diagnosis details: Nutrition problem: Nutrition etiology: Nutrition signs and symptoms: Nutrition prescription: Dietitian name: Assessment completed: Physical Exam General appearance: alert, awake, no acute distr ess Head/eyes: atraumatic, clear cornea, normal conj unctiva/sclera, normocephalic ENT: normal nose Neck: supple/no meningismus Cardiovascular: normal heart sounds Respiratory: decreased breath sounds, wheezes, a erating well, no distress Abdomen: non-tender, soft Genitourinary: urinary catheter, urine Extremities: no edema Results Findings/Data: Laboratory Tests 10/23 10/23 10/23 10/23 10/22 1622 1133 0825 0605 2006 Chemistry Sodium (134 - 147 mEq/L) 138 Potassium (3.4 - 5.0 mEq/L) 3.8 Chloride (100 - 108 mEq/L) 107 Carbon Dioxide (21 - 33 mEq/l) 29 Anion Gap (0 - 20) 6 BUN (7 - 18 mg/dL) 11 Creatinine (0.6 - 1.3 mg/dL) 1.0 Glomerular Filtr Rate (80 - 90) 84.6 Glucose (70 - 110 mg/dL) 98 POC Glucose (70 - 110 MG/DL) 79 98 92 123 H Calcium (8.0 - 10.5 mg/dL) 7.6 L Magnesium (1.80 - 2.40 mg/dL) 1.53 L Diagnosis, Assessment Plan Free Text A P: Assessment and Plan: CHANDRA (Resolved) -Renal function improved and wnl, johns to gravi ty, s/p bicarb gtt. -2/2 post-obstrucitve uropathy, monitor for post -obstructive diuresis. -UA, urine lytes requested and noted, no signifi cant proteinuria. -Per Urology note: Reportedly the patient had 3L of urine in his bladder. CT abdomen from [place] showed that the patien t has a very large distended bladder with hydroureteronep hrosis and there does appear to be maybe a forniceal rupture or some back pressure into the kidneys c ausing some inflammation and possibly a small amount of u rine to come out through the forniceal areas that I do not see an actual ruptured ureter. The patien t's creatinine has improved. His symptoms have totally re solved with catheter placement. This can be managed conservatively. The patient will follow up as an outpatient. -Avoid nephrotoxicity monitor renal function and UOP Hypokalemia/Hypocalcemia/Hypomagnesemia -K+ improved, Mg replaced. Vitamin D deficiency, vitamin D supplement. -Monitor for post-obstructive diuresis and elect rolyte imbalance Urinary Retention/BPH -Johns to gravity, Urology following, on Tamsulo sin -Per Urology note: Reportedly the patient had 3L of urine in his bladder. CT abdomen from [place] showed that the patien t has a very large distended bladder with hydroureteronep hrosis and there does appear to be maybe a forniceal rupture or some back pressure into the kidneys c ausing some inflammation and possibly a small amount of u rine to come out through the forniceal areas that I do not see an actual ruptured ureter. The patien t's creatinine has improved. His symptoms have totally re solved with catheter placement. This can be managed conservatively. The patient will follow up as an outpatient. HTN -BP acceptable, monitor, on PRN IV hydralazine Schizophrenia -Home medications resumed Fever -Low grade fever on 10/19/22, blood cx (10/20/22): NGTD, B/L LE venous doppler (): Negative for DVT, on empiric abx per [facility] team. Discussed the plan with the patient, patient's dennys del valle, and . Toby Koehler 10/23/22 225: Attestations Physician Attestation Reviewed findings plan: Patient examined Renal function improved and wnl , johns to gravity, -2/2 post-obstrucitve uropathy, replace electrol ytes as needed, emperic antibiotics per admitting team, agree with above A/P at 1741 at 2253 RPT #:[id number] END OF REPORT 2022-10-22 18:32:00-00:00 [facility] ([facility]) Infectious Dis. Progress Note REPORT#:[id number] REPORT STATUS: Signed DATE:10/22/22 TIME: 1831 PATIENT: MATHEW CASTILLO UNIT #: [id number] ROOM/BED: [place] [address] : 59 AGE: 62 SEX: M ATTEND: Salinas Alba MD ADM AUTHOR: Skip Jaffe MD * ALL edits or amendments must be made on the el ectronic/computer document * Subjective Internal record Patient examined, chart reviewed, events of last 24 hours noted. See full dictated progress note for further details. ASSESSMENT AND PLAN: No new development. Patient is resting comfortab ly in bed. Remains awake and alert. Denies any new complaints. Had lo w-grade temperature of the 37.6 degree C deputy manager today. Remains afebrile at the p resent time. Recurrent fever and leukocyt osis most likely secondary to noninfectious causes. Recent complicated urinary tract infection with urinary retention. Bilateral lower extremity venous Doppler studies negative for DVT. D-dimer is elevated. Repeat urinalysis done on 2022 showed 1+ leukocyte esterase, more than 50 wbc's, more than 50 rbc's, trace bacteria. Repeat CBC with manual differentia done today sh ows no significant left shift with 8% band forms. Bilateral lower extremity ve nous Doppler studies Show no evidence of DVT in the lower extremities. DVT prophylaxis as per primary team. Continue empiric IV antibiotics for now. Electronically Signed by Sikp Jaffe MD on at 0219 RPT #:[id number] END OF REPORT 2022-10-22 18:20:00-00:00 [id number] [place] [address] PATIENT NAME: MATHEW CASTILLO ADMIT DATE: 10/16/22 ACCOUNT NO: [id number] ROOM NO: [facility] AGE: 62 REPORT TYPE: PROGRESS NOTE SEX: M ADMITTING PHYSICIAN:Salinas Alba MD ATTENDING PHYSICIAN:Salinas Alba MD DATE: 10/21/2022 SUBJECTIVE: The patient examined. Chart reviewed . Events of last 24 hours noted. The patient clinically is not muc h changed. He remains awake and alert, resting comfortably in bed. Denies any new compl aints. The patient remains afebrile with low-grade temperature of up to 37. 2 degrees Celsius. No nausea, vomiting reported. No diarrhea reported. The pat ient continues to have indwelling Johns catheter in place. The lower ab dominal discomfort has improved. The patient is ambulating within the r oom. CURRENT MEDICATIONS: Include benztropine, cholec alciferol, lispro insulin, tamsulosin, haloperidol, Zosyn IV, Tylenol p.r.n ., docusate sodium p.r.n., glucagon p.r.n., hydrocodone bitartrate p.r.n., hydralazine p.r.n., ondansetron p.r.n. PHYSICAL EXAMINATION: GENERAL: The patient is resting comfortably in b ed. He is awake and alert, does not appear to be toxic, does not appear to be in any acute distress. VITAL SIGNS: Temperature maximum in last 24 hour s is 37.8 degrees Celsius. Current temperature is 37.1 degrees Celsius, blo od pressure is 118/70, respirations 16 per minute, pulse is 80 per bryan te. The patient's weight is around 68 kg. HEENT: Head is atraumatic and normocephalic. Pup ils are equal, round and reacting to light and accommodation bilaterally. Extraocular movements are intact. Oropharynx is clear. Oral hygiene is lyric r. NECK: Supple. JVD is absent. No carotid bruit, t hyromegaly, or cervical lymphadenopathy. LUNGS: There is fair air entry bilaterally. CARDIOVASCULAR: S1, S2 audible. No murmur, rick p, S3 or S4 appreciated. ABDOMEN: Soft and slightly bulging. The patient has mild suprapubic area tenderness. No hepatosplenomegaly. Bowel sounds are normoactive. Has minimal tenderness at the renal angles bilaterally. GENITOURINARY: The patient has indwelling Johns catheter in place. The catheter appears to be working fine and has clear urine and being drained into the bag. EXTREMITIES: Both calves are soft. No calf tende rness. No pedal edema. Peripheral pulses are faintly palpable bilateral ly. SKIN: The patient's peripheral IV sites are cielo n without any evidence of phlebitis. LABORATORY DATA: WBC has decreased to around 14, 000 with hemoglobin of 12, hematocrit of 35, platelet count is 321,000. Man ual differential shows 78% neutrophils, 8% band forms, 8% lymphocyte, 4%, m onocyte, 2% eosinophils. PATIENT NAME: MATHEW CASTILLO ACCOUNT #: G [id number] Bilateral lower extremity venous Doppler studies show no evidence of DVT. C-reactive protein is 36. Serum sodium is 140, p otassium 3.0, chloride 105, bicarbonate 29, glucose 89, BUN 10, creatinine 0.9, estimated GFR is 96, calcium is 7.3, magnesium is 1.50. D-dimer is 5949. ASSESSMENT AND PLAN: The patient with multiple c omorbidities, was initially admitted through emergency room at [facility] with acute urinary retention. The patient has a history of schizoph beatrice and had been having urinary symptoms for over 2 years and about for 2 days, he would not be able to pass any urine and he was found to have acute ur inary retention. The patient also had suspicion for possible urinary extravas ation within the peritoneal cavity due to that and for the need for urology evaluation, he was transferred to [facility]. The p atient was continued on IV ceftriaxone and had been doi ng fairly well until deputy manager yesterday when he started to have fever of up to 37.8 degrees Cels ius and he developed leukocytosis of around 19,000. The patient had h is antibiotics changed to IV Zosyn. Urinalysis done on admission had shown 1+ leukocyte esterase and more the 50 rbc's, more than 50 wbc's, and tr brit bacteria. The patient currently is receiving IV Zosyn; however, he had developed ma rked leukocytosis of 19,000 yesterday and because of suspicion for possibili ty of deep vein thrombosis, including pelvic deep vein t hrombosis, he had venous Doppler studies done and he also had D-dimer quantitative checked. His venou s Doppler studies of lower extremities are negative; however, D-dimer is el evated at 5949 and C-reactive protein is also elevated. Th e patient otherwise remains hemodynamically stable. We will for now, keep him on the same a ntibiotics. We will defer primary team to further deep vein thrombosis prophylaxis. The case was discussed with MARLENA Cheng. Dictated By: Skip Jaffe MD Date Dictated: 10/22/2022 18:20:30 Date Transcribed: 10/22/2022 19:52:40 /[facility] Receipt ID: [id number] Authenticated and Edited by Skip Jaffe MD On 11/02/22 2:22:51 AM Electronically Signed by Skip Jaffe MD on at 0323 PATIENT NAME: MATHEW CASTILLO ACCOUNT #: G [id number] 2022-10-22 18:15:00-00:[address] [facility]) Internal Medicine Prog. Note REPORT#:[id number] REPORT STATUS: Signed DATE:10/22/22 TIME: 1814 PATIENT: MATHEW CASTILLO UNIT #: [id number] ROOM/BED: [place] [address] : 59 AGE: 62 SEX: M ATTEND: Salinas Alba MD ADM AUTHOR: Sofia Cheng NP * ALL edits or amendments must be made on the [employer]/computer document * Subjective Chief complaint: Abdominal distention, hydronephrosis HPI: 62-year-old male with last medical history of, B PH, transferred from [place] for urology evaluation and treatment sec ondary to possible ruptured ureter. As per patient his a bdomen was distended for at least for 2 days and he was having difficulty urinating. Patient present ed to outside facilityImaging revealed severe bilateral hydronephrosis with ev idence of active urine extravasation and large amou nt of urine in the bladder pushing all the way up to the abdomen. As per patient' s daughter about 3 L of fluid was removed within 10 minutes of Johns insertion. Patient reports he h as been experiencing urinary hesitancy for the past 2 to 3 years. Den ies seeing a urologist. Patient denies fever, chills, dysuria, robert turia, or other associated symptoms. Patient denies shortness of breath, chest pain, nausea, vomitin g, diarrhea, constipation. Admission vital signs blood pressure 146/78, pul se 92, respiration 18, temperature 37.1, O2 sat 96% on room air. Abnormal labs: Hemoglobin 10.9, hematocrit 31.7, potass ium 2.8, chloride 114, CO2 18, BUN 41, creatinine 2.1, glucose 643Calcium 4.9. Review of Systems Additional notes: Constitutional: Denies: chills, fever. ENT: Denies: earache, nasal congestion, sore throat. Respiratory: Denies: hemoptysis, parox nocturnal dyspnea, pl eurisy, pleuritic pain, pneumonia, SOB, wheezing. Cardiovascular: Denies: chest pain, palpitations. GI: Reports: abdominal pain. Denies: nausea, vomiti ng. : Reports: flank pain, urinary retention. Denies: frequency, hematuria. Musculoskeletal: Arthritis: Denies: left upper, left lower, right upper, ri ght lower. Neuro: Denies: change in LOC, confusion, dizziness, fo brendan weakness, gait problem, headache, lightheaded, numbness, seizure, slurr ed speech, spinning sensation, syncope, unable to speak, vision jenni nge. Psych: Reports: anxiety. Denies: agitation, change in mental status, confusion, depression, homicidal ideation, hostile, insomn ia, stress, suicidal ideation. Objective General VS/I O: Vital Signs Date Temp Pulse Resp B/P B/P Mean Pulse Ox FiO2 10/21-10/22 36.8-37.6 72-88 14-15 114-130/67-78 83.5-92.3 97-98 Last Documented: Result Date Time Pulse Ox 97 10/22 1702 B/P 114/70 10/22 1702 B/P Mean 84.4 10/22 1702 O2 Delivery Room air 10/22 170 Temp 36.9 10/22 1702 Pulse 72 10/22 1702 Resp 14 10/22 1702 24 hour I O ending at 0700: 10/22 0700 10/21 1900 Intake Total Output Total 1200 Balance -1200 Output, Urine 1200 PATIENT WEIGHT: Weight (lb): Weight (oz): Weight (kg): 68.000 Medications: Active Meds + DC'd Last 24 Hrs Magnesium Sulfate/Dextrose (MAGNESIUM SULFATE 1G M/D5W 100ML) 100 ML ONCE ONE IV (DC) Piperacillin Sod/Tazobactam Sod (ZOSYN 3.375GM) 3.375 GM Q8H IV Sodium Chloride (SODIUM CHLORIDE 0.9% 100 ML) 1 00 ML Cholecalciferol (VITAMIN D) 1,000 INTL.UNITS NIDHI LY PO (CKD) Tamsulosin HCl (Flomax 0.4 mg) 0.4 MG PC DIN PO Acetaminophen (TYLENOL) 650 MG Q4H PRN PRN PO Docusate Sodium (COLACE) 100 MG BID PRN PRN PO Haloperidol (HALDOL) 10 MG BID PO Hydralazine HCl (APRESOLINE) 10 MG Q6H PRN PRN I V Ondansetron HCl (ZOFRAN) 4 MG Q4H PRN PRN IV Benztropine Mesylate (COGENTIN) 1 MG DAILY PO Dextrose/Water (DEXTROSE 10% IN WATER) 125 ML DIR PRN IV (CKD) Dextrose/Water (DEXTROSE 10% IN WATER) 250 ML DIR PRN IV (CKD) Glucagon (GLUCAGON) 1 MG ASDIR PRN IM Insulin Human Lispro (HUMALOG) 0 AC HS SUBQ Results Findings/Data: Laboratory Tests 10/22/22 0637: [Embedded Image Not Available] Laboratory Tests 10/22 10/22 10/22 10/22 10/21 1700 1119 0737 0637 2003 Chemistry Sodium (134 - 147 mEq/L) 139 Potassium (3.4 - 5.0 mEq/L) 4.0 Chloride (100 - 108 mEq/L) 107 Carbon Dioxide (21 - 33 mEq/l) 30 Anion Gap (0 - 20) 6 BUN (7 - 18 mg/dL) 12 Creatinine (0.6 - 1.3 mg/dL) 1.1 Glomerular Filtr Rate (80 - 90) 75.4 L Glucose (70 - 110 mg/dL) 102 POC Glucose (70 - 110 MG/DL) 132 H 118 H 100 14 8 H Calcium (8.0 - 10.5 mg/dL) 7.8 L Magnesium (1.80 - 2.40 mg/dL) 1.72 L Diagnosis, Assessment Plan Hospital course to date: General appearance: alert, awake Head/Eyes: atraumatic, clear cornea, EOMI, normo cephalic, normal conjunctiva/ sclera, normal eyelids/periorb, PERRLA ENT: normal dentition, normal ear left, normal e ar right, normal nose, normal pharynx, normal sinus Cardiovascular: regular rate rhythm Respiratory: decreased breath sounds, clear to a uscultation, no distress, no tenderness Abdomen/GI: active bowel sounds, soft Abdomen quadrants: LLQ normal bowel sounds, LLQ tenderness, LUQ nor mal bowel sounds, RLQ normal bowel sounds, RLQ tenderness, RUQ normal bowel s ounds Genitourinary: johns Extremities: moves all, no edema-all extremities , normal capillary refill, normal range of motion, normal sensory, normal m otor function Neuro/SHOULDER SAWYER: 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 Rupture of ureter Free Text DxA P Notes Free text DxA P notes: Assessment: 62-year-old male with last medical history of, B PH, transferred from [place] for urology evaluation and treatment sec ondary to possible ruptured ureter. As per patient his a bdomen was distended for at least for 2 days and he was having difficulty urinating. Patient present ed to outside facilityImaging revealed severe bilateral hydronephrosis with ev idence of active urine extravasation and large amou nt of urine in the bladder pushing all the way up to the abdomen. As per patient' s daughter about 3 L of fluid was removed within 10 minutes of Johns insertion. Patient reports he h as been experiencing urinary hesitancy for the past 2 to 3 years. 1. Abdominal distention, severe bilateral hydron ephrosis, large amount of urinary retention -Status post Johns insertion large amount of ur ine was obtained 2. Acute kidney injury 3. Hypokalemia/hypocalcemia, hyperchloremia 4. Metabolic acidosis 5. Possible BPH 6. Severe bilateral hydronephrosis 7. Hypertension 8. Schizophrenia Plan of care: Admit patient for further evaluation and treatme nt Urology consultation in place Keep Johns to bedside drainage I's and O's Monitor renal function Nephrology consultation Replace electrolytes Start tamsulosin Bicarb drip started Repeat CT of the abdomen and pelvis if needed Repeat labs Further recommendation based on patient's clinic al course 10/17/2022 Vital signs within normal limits Hypokalemia 3.2, hypomagnesemia 1.50 Renal function is improved, discontinue bicarb d rip, continue electrolyte control-replace as needed per nephro Urology is following Continue tamsulosin BP control-on hydralazine as needed, pain contro l Continue telemetry monitoring, intake and output , fall precaution Follow-up labs, continue medications and support nya care 10/18/2022 BP is controlled Hypocalcemia 7.4, hypomagnesemia 1.5, Hypokalemi a 3.1 MRSA surveillance screen pending results Uro and Nephro are following Started on cholecalciferol p.o., still on tamsul osin Electrolyte control- magnesium and potassium rep laced Fall precaution Follow-up labs, continue medications and support nya care 10/19/2022 Vital signs within normal limits, POC glucose is controlled Hypocalcemia 7.5, hypomagnesemia 1.65 MRSA surveillance screen is negative Continue electrolyte control, replace as needed Patient is able to tolerate p.o. intake Renal function is improved, discontinue bicarb drip today, continue BP control on IV hydralazine per nephro Continue tamsulosin p.o. Pain control, glycemic control, fall precaution Follow-up labs, continue medications and present care 10/20/2022 Patient has no new complaints, stable Hypocalcemia Blood culture pending results X-ray of the chest shows mild interstitial pulmo nary edema. No focal consolidation. Consultants evaluations noted Electrolyte control replace magnesium Started on IV antibiotic Zosyn Consult placed to Dr. Jaffe for patients UTI Troponin I Blood precaution, glycemic control Follow-up EKG, labs, continue medications and sarah pportive care 10/21/2022 POC glucose is controlled D-dimer 5949 Hypokalemia 3.0, hypomagnesemia 1.50, hypocalcem ia 7.3 Blood culture shows no growth after 48 hours ECG: Normal sinus rhythm No evidence of deep vein thrombosis ID has seen the patient. Con tinue empiric IV antibiotics-Zosyn, tamsulosin p.o. for now. Continue electrolyte control replace potassium a nd magnesium Pain control, glycemic control Follow-up electrolytes and labs, continue medica tions and present 10/22/2022 Vital signs within normal limits, POC glucose is controlled Hypocalcemia 7.8, hypomagnesemia 1.72 No sonographic evidence for DVT Blood culture shows no growth after 48 hours Patient with good urine outp ut, renal function is improved, patient will follow- up as an outpatient Still on IV antibiotic Zosyn, tamsulosin p.o. Continue electrolyte control-replace magnesium Continue pain control, glycemic control Follow-up labs, continue medications and support nya care Electronically Signed by Sofia Cheng NP on 0 10/24/22 at 0314 Electronically Signed by Salinas Alba MD o n 10/25/22 at 0842 RPT #:[id number] END OF REPORT 2022-10-22 09:31:00-00:00 [facility] ([facility] Nephrology Progress Note REPORT#:[id number] REPORT STATUS: Signed DATE:10/22/22 TIME: 930 PATIENT: MATHEW CASTILLO UNIT #: [id number] ROOM/BED: [place] [address] : 59 AGE: 62 SEX: M ATTEND: Salinas Alba MD ADM AUTHOR: Carmen Kemp * ALL edits or amendments must be made on the [employer] document * Carmen Kemp 10/22/22 0931: Subjective Chief complaint: Concern for ruptured ureter HPI: The patient seen and examined. Resting in bed, t olerating PO intake w/o any issue. Johns to gravity, good UOP. Review of Systems ROS comments: A 12 point ROS is obtained and is negative unles s specified in HPI Objective General VS/I O: Vital Signs: Date Time Temp Pulse Resp B/P B/P Pulse O2 O2 F low FiO2 Mean Ox Delivery Rate 10/22 1702 36.9 72 14 114/70 84.4 97 Room air 10/22 1120 36.9 76 15 116/67 83.5 98 Room air 10/22 0738 37.0 77 15 118/70 86.2 97 Room air 10/22 0452 37.0 83 14 130/71 90.8 98 Room air 10/22 0002 37.6 88 14 121/78 92.3 98 Room air 10/21 2003 36.8 84 14 118/77 90.5 97 Room air 24 hour I O ending at 0700: 10/22 0700 10/21 1900 Intake Total Output Total 1200 Balance -1200 Output, Urine 1200 PATIENT WEIGHT: Weight (lb): Weight (oz): Weight (kg): 68.000 Medications Active Meds + DC'd Last 24 Hrs Magnesium Sulfate/Dextrose (MAGNESIUM SULFATE 1G M/D5W 100ML) 100 ML ONCE ONE IV (DC) Piperacillin Sod/Tazobactam Sod (ZOSYN 3.375GM) 3.375 GM Q8H IV Sodium Chloride (SODIUM CHLORIDE 0.9% 100 ML) 1 00 ML Cholecalciferol (VITAMIN D) 1,000 INTL.UNITS NIDHI LY PO (CKD) Tamsulosin HCl (Flomax 0.4 mg) 0.4 MG PC DIN PO Acetaminophen (TYLENOL) 650 MG Q4H PRN PRN PO Docusate Sodium (COLACE) 100 MG BID PRN PRN PO Haloperidol (HALDOL) 10 MG BID PO Hydralazine HCl (APRESOLINE) 10 MG Q6H PRN PRN I V Ondansetron HCl (ZOFRAN) 4 MG Q4H PRN PRN IV Benztropine Mesylate (COGENTIN) 1 MG DAILY PO Dextrose/Water (DEXTROSE 10% IN WATER) 125 ML DIR PRN IV (CKD) Dextrose/Water (DEXTROSE 10% IN WATER) 250 ML DIR PRN IV (CKD) Glucagon (GLUCAGON) 1 MG ASDIR PRN IM Insulin Human Lispro (HUMALOG) 0 AC HS SUBQ Dietitian nutrition assessment The data set between the solid lines has been im ported from the dietitian's assessment. BMI Calculated: 22.1 Nutrition related diagnosis: Nutrition diagnosis details: Nutrition problem: Nutrition etiology: Nutrition signs and symptoms: Nutrition prescription: Dietitian name: Assessment completed: Physical Exam General appearance: alert, awake, no acute distr ess Head/eyes: atraumatic, clear cornea, normal conj unctiva/sclera, normocephalic ENT: normal nose Neck: supple/no meningismus Cardiovascular: normal heart sounds Respiratory: decreased breath sounds, wheezes, a erating well, no distress Abdomen: non-tender, soft Genitourinary: urinary catheter, urine Extremities: no edema Results Findings/Data: Laboratory Tests 10/22 10/22 10/22 10/22 10/21 1700 1119 0748 7633 2003 Chemistry Sodium (134 - 147 mEq/L) 139 Potassium (3.4 - 5.0 mEq/L) 4.0 Chloride (100 - 108 mEq/L) 107 Carbon Dioxide (21 - 33 mEq/l) 30 Anion Gap (0 - 20) 6 BUN (7 - 18 mg/dL) 12 Creatinine (0.6 - 1.3 mg/dL) 1.1 Glomerular Filtr Rate (80 - 90) 75.4 L Glucose (70 - 110 mg/dL) 102 POC Glucose (70 - 110 MG/DL) 132 H 118 H 100 14 8 H Calcium (8.0 - 10.5 mg/dL) 7.8 L Magnesium (1.80 - 2.40 mg/dL) 1.72 L Diagnosis, Assessment Plan Free Text A P: Assessment and Plan: CHANDRA (Resolved) -Renal function improved and wnl, johns to gravi ty, s/p bicarb gtt. -2/2 post-obstrucitve uropathy, monitor for post -obstructive diuresis. -UA, urine lytes requested and noted, no signifi cant proteinuria. -Per Urology note: Reportedly the patient had 3L of urine in his bladder. CT abdomen from [place] showed that the patien t has a very large distended bladder with hydroureteronep hrosis and there does appear to be maybe a forniceal rupture or some back pressure into the kidneys c ausing some inflammation and possibly a small amount of u rine to come out through the forniceal areas that I do not see an actual ruptured ureter. The patien t's creatinine has improved. His symptoms have totally re solved with catheter placement. This can be managed conservatively. The patient will follow up as an outpatient. -Avoid nephrotoxicity monitor renal function and UOP Hypokalemia/Hypocalcemia/Hypomagnesemia -K+ improved, Mg replaced. Vitamin D deficiency, vitamin D supplement. -Monitor for post-obstructive diuresis and elect rolyte imbalance Urinary Retention/BPH -Johns to gravity, Urology following, on Tamsulo sin -Per Urology note: Reportedly the patient had 3L of urine in his bladder. CT abdomen from [place] showed that the patien t has a very large distended bladder with hydroureteronep hrosis and there does appear to be maybe a forniceal rupture or some back pressure into the kidneys c ausing some inflammation and possibly a small amount of u rine to come out through the forniceal areas that I do not see an actual ruptured ureter. The patien t's creatinine has improved. His symptoms have totally re solved with catheter placement. This can be managed conservatively. The patient will follow up as an outpatient. HTN -BP acceptable, monitor, on PRN IV hydralazine Schizophrenia -Home medications resumed Fever -Low grade fever on 10/19/22, blood cx (10/20/22): NGTD, B/L LE venous doppler (): Negative for DVT, on empiric abx per [facility] team. Discussed the plan with the patient, patient's dennys del valle, and . Toby Koehler 10/22/22 1930: Attestations Physician Attestation Reviewed findings plan: Patient examined Renal function improved and wnl , johns to gravity, -2/2 post-obstrucitve uropat hy, replace electrolytes as needed, agree with above A/P at 1842 at 2220 RPT #:[id number] END OF REPORT 2022-10-21 20:48:00-00:00 [facility] Internal Medicine Prog. Note REPORT#:[id number] REPORT STATUS: Signed DATE:10/21/22 TIME: 2047 PATIENT: MATHEW CASTILLO UNIT #: [id number] ROOM/BED: [place] [address] : 59 AGE: 62 SEX: M ATTEND: Salinas Alba MD ADM AUTHOR: Sofia Cheng NP * ALL edits or amendments must be made on the el [employer]/computer document * Subjective Chief complaint: Abdominal distention, hydronephrosis HPI: 62-year-old male with last medical history of, B PH, transferred from [place] for urology evaluation and treatment sec ondary to possible ruptured ureter. As per patient his a bdomen was distended for at least for 2 days and he was having difficulty urinating. Patient present ed to outside facilityImaging revealed severe bilateral hydronephrosis with ev idence of active urine extravasation and large amou nt of urine in the bladder pushing all the way up to the abdomen. As per patient' s daughter about 3 L of fluid was removed within 10 minutes of Johns insertion. Patient reports he h as been experiencing urinary hesitancy for the past 2 to 3 years. Den ies seeing a urologist. Patient denies fever, chills, dysuria, robert turia, or other associated symptoms. Patient denies shortness of breath, chest pain, nausea, vomitin g, diarrhea, constipation. Admission vital signs blood pressure 146/78, pul se 92, respiration 18, temperature 37.1, O2 sat 96% on room air. Abnormal labs: Hemoglobin 10.9, hematocrit 31.7, potass ium 2.8, chloride 114, CO2 18, BUN 41, creatinine 2.1, glucose 643Calcium 4.9. Review of Systems Additional notes: Constitutional: Denies: chills, fever. ENT: Denies: earache, nasal congestion, sore throat. Respiratory: Denies: hemoptysis, parox nocturnal dyspnea, pl eurisy, pleuritic pain, pneumonia, SOB, wheezing. Cardiovascular: Denies: chest pain, palpitations. GI: Reports: abdominal pain. Denies: nausea, vomiti ng. : Reports: flank pain, urinary retention. Denies: frequency, hematuria. Musculoskeletal: Arthritis: Denies: left upper, left lower, right upper, ri ght lower. Neuro: Denies: change in LOC, confusion, dizziness, fo brendan weakness, gait problem, headache, lightheaded, numbness, seizure, slurr ed speech, spinning sensation, syncope, unable to speak, vision jenni nge. Psych: Reports: anxiety. Denies: agitation, change in mental status, confusion, depression, homicidal ideation, hostile, insomn ia, stress, suicidal ideation. Objective General VS/I O: Vital Signs Date Temp Pulse Resp B/P B/P Mean Pulse Ox FiO 2 10/20-10/21 36.8-37.2 70-84 - 112-125/66-77 81.4-91.8 94-98 Last Documented: Result Date Time Pulse Ox 97 10/21 2002 B/P 118/77 10/21 2002 B/P Mean 90.5 10/21 2002 O2 Delivery Room air 10/21 2002 Temp 36.8 10/21 2002 Pulse 84 10/21 2002 Resp 14 10/21 2002 24 hour I O ending at 0700: 10/21 0700 10/20 1900 Intake Total 400 Output Total 800 Balance -400 Intake, Oral 400 Number 2 Bowel Movements Output, Urine 800 PATIENT WEIGHT: Weight (lb): Weight (oz): Weight (kg): 68.000 Medications: Active Meds + DC'd Last 24 Hrs Magnesium Sulfate (MAGNESIUM SULFATE 4GM/SWFI 10 0ML) 100 ML ONCE ONE IV (DC) Potassium Chloride (POTASSIUM CHLORIDE 20MEQ TAB .ER) 40 MEQ ONCE ONE PO (DC) Piperacillin Sod/Tazobactam Sod (ZOSYN 3.375GM) 3.375 GM Q8H IV Sodium Chloride (SODIUM CHLORIDE 0.9% 100 ML) 1 00 ML Cholecalciferol (VITAMIN D) 1,000 INTL.UNITS NIDHI LY PO (CKD) Tamsulosin HCl (Flomax 0.4 mg) 0.4 MG PC DIN PO Acetaminophen (TYLENOL) 650 MG Q4H PRN PRN PO Docusate Sodium (COLACE) 100 MG BID PRN PRN PO Haloperidol (HALDOL) 10 MG BID PO Hydralazine HCl (APRESOLINE) 10 MG Q6H PRN PRN I V Hydrocodone Bitart/Acetaminophen (NORCO 5/325) 1 TAB Q6H PRN PRN PO (DC) Ondansetron HCl (ZOFRAN) 4 MG Q4H PRN PRN IV Benztropine Mesylate (COGENTIN) 1 MG DAILY PO Dextrose/Water (DEXTROSE 10% IN WATER) 125 ML DIR PRN IV (CKD) Dextrose/Water (DEXTROSE 10% IN WATER) 250 ML DIR PRN IV (CKD) Glucagon (GLUCAGON) 1 MG ASDIR PRN IM Insulin Human Lispro (HUMALOG) 0 AC HS SUBQ Results Findings/Data: Laboratory Tests 10/21/22 0426: [Embedded Image Not Available] Laboratory Tests 10/21 10/21 10/21 10/21 10/21 1707 1126 0723 0426 0426 Chemistry Sodium (134 - 147 mEq/L) 140 Potassium (3.4 - 5.0 mEq/L) 3.0 L Chloride (100 - 108 mEq/L) 105 Carbon Dioxide (21 - 33 mEq/l) 29 Anion Gap (0 - 20) 9 BUN (7 - 18 mg/dL) 10 Creatinine (0.6 - 1.3 mg/dL) 0.9 Glomerular Filtr Rate (80 - 90) 96.0 H Glucose (70 - 110 mg/dL) 89 POC Glucose (70 - 110 MG/DL) 102 104 95 Calcium (8.0 - 10.5 mg/dL) 7.3 L Magnesium (1.80 - 2.40 mg/dL) 1.50 L C-Reactive Protein (<10.0 mg/L) 36.0 H Laboratory Tests 10/21 425 Coagulation D-Dimer (<=500 ng/mlFEU) 5949 *H Laboratory Tests 10/21 425 Hematology WBC (4.5 - 11.0 x10 3/uL) 13.9 H RBC (4.00 - 5.60 x10 6/uL) 3.97 L Hgb (12.5 - 16.9 g/dL) 11.6 L Hct (37.5 - 50.7 %) 34.9 L MCV (81.0 - 99.0 fL) 87.9 MCH (27.0 - 33.0 pg) 29.2 MCHC (33.0 - 37.0 g/dL) 33.2 RDW (11.5 - 14.5 %) 13.9 Plt Count (150 - 400 x10 3/uL) 321 MPV (7.0 - 9.0 fL) 9.1 H Seg Neutrophils % (37 - 69 %) 78 H Band Neutrophils % (0.0 - 10.0 %) 8.0 Lymphocytes % (Manual) (23 - 55 %) 8 L Monocytes % (Manual) (0 - 10 %) 4 Eosinophils % (Manual) (0.0 - 4.0 %) 2 Platelet Estimate (ADEQUATE THOUSAND) Adequate Plt Morphology Comment LARGE PLATELETS Anisocytosis NORMAL Radiology data: Recent Impressions: ULTRASOUND - DUP VEIN ASAEL 10/21 0821 Report Impression - Status: SIGNED Entered: 10/21/2022 0912 IMPRESSION: No sonographic evidence for DVT Impression By: [email or web address] Raisa Sifuentes Diagnosis, Assessment Plan Hospital course to date: General appearance: alert, awake Head/Eyes: atraumatic, clear cornea, EOMI, normo cephalic, normal conjunctiva/ sclera, normal eyelids/periorb, PERRLA ENT: normal dentition, normal ear left, normal e ar right, normal nose, normal pharynx, normal sinus Cardiovascular: regular rate rhythm Respiratory: decreased breath sounds, clear to a uscultation, no distress, no tenderness Abdomen/GI: active bowel sounds, soft Abdomen quadrants: LLQ normal bowel sounds, LLQ tenderness, LUQ nor mal bowel sounds, RLQ normal bowel sounds, RLQ tenderness, RUQ normal bowel s ounds Genitourinary: johns Extremities: moves all, no edema-all extremities , normal capillary refill, normal range of motion, normal sensory, normal m otor function Neuro/SHOULDER SAWYER: 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 Rupture of ureter Free Text DxA P Notes Free text DxA P notes: Assessment: 62-year-old male with last medical history of, B PH, transferred from [place] for urology evaluation and treatment sec ondary to possible ruptured ureter. As per patient his a bdomen was distended for at least for 2 days and he was having difficulty urinating. Patient present ed to outside facilityImaging revealed severe bilateral hydronephrosis with ev idence of active urine extravasation and large amou nt of urine in the bladder pushing all the way up to the abdomen. As per patient' s daughter about 3 L of fluid was removed within 10 minutes of Johns insertion. Patient reports he h as been experiencing urinary hesitancy for the past 2 to 3 years. 1. Abdominal distention, severe bilateral hydron ephrosis, large amount of urinary retention -Status post Johns insertion large amount of ur ine was obtained 2. Acute kidney injury 3. Hypokalemia/hypocalcemia, hyperchloremia 4. Metabolic acidosis 5. Possible BPH 6. Severe bilateral hydronephrosis 7. Hypertension 8. Schizophrenia Plan of care: Admit patient for further evaluation and treatme nt Urology consultation in place Keep Johns to bedside drainage I's and O's Monitor renal function Nephrology consultation Replace electrolytes Start tamsulosin Bicarb drip started Repeat CT of the abdomen and pelvis if needed Repeat labs Further recommendation based on patient's clinic al course 10/17/2022 Vital signs within normal limits Hypokalemia 3.2, hypomagnesemia 1.50 Renal function is improved, discontinue bicarb d rip, continue electrolyte control-replace as needed per nephro Urology is following Continue tamsulosin BP control-on hydralazine as needed, pain contro l Continue telemetry monitoring, intake and output , fall precaution Follow-up labs, continue medications and support nya care 10/18/2022 BP is controlled Hypocalcemia 7.4, hypomagnesemia 1.5, Hypokalemi a 3.1 MRSA surveillance screen pending results Uro and Nephro are following Started on cholecalciferol p.o., still on tamsul osin Electrolyte control- magnesium and potassium rep laced Fall precaution Follow-up labs, continue medications and support nya care 10/19/2022 Vital signs within normal limits, POC glucose is controlled Hypocalcemia 7.5, hypomagnesemia 1.65 MRSA surveillance screen is negative Continue electrolyte control, replace as needed Patient is able to tolerate p.o. intake Renal function is improved, discontinue bicarb drip today, continue BP control on IV hydralazine per nephro Continue tamsulosin p.o. Pain control, glycemic control, fall precaution Follow-up labs, continue medications and present care 10/20/2022 Patient has no new complaints, stable Hypocalcemia Blood culture pending results X-ray of the chest shows mild interstitial pulmo nary edema. No focal consolidation. Consultants evaluations noted Electrolyte control replace magnesium Started on IV antibiotic Zosyn Consult placed to Dr. Jfafe for patients UTI Troponin I Blood precaution, glycemic control Follow-up EKG, labs, continue medications and sarah pportive care 10/21/2022 POC glucose is controlled D-dimer 5949 Hypokalemia 3.0, hypomagnesemia 1.50, hypocalcem ia 7.3 Blood culture shows no growth after 48 hours ECG: Normal sinus rhythm No evidence of deep vein thrombosis ID has seen the patient. Continue empiric IV antibiotics-Zosyn, tamsulosi n p.o. for now. Continue electrolyte control replace potassium a nd magnesium Pain control, glycemic control Follow-up electrolytes and labs, continue medica tions and present Electronically Signed by Sofia Cheng NP on 0 10/23/22 at 0104 Electronically Signed by Salinas Alba MD n 10/23/22 at 1009 RPT #:[id number] END OF REPORT 2022-10-21 19:01:00-00:00 [facility] ([facility]) Infectious Dis. Progress Note REPORT#:[id number] REPORT STATUS: Signed DATE:10/21/22 TIME: 1900 PATIENT: MATHEW CASTILLO UNIT #: [id number] ROOM/BED: [address] : 58 AGE: 62 SEX: M ATTEND: Salinas Alba MD ADM AUTHOR: Skip Jaffe MD * ALL edits or amendments must be made on the el [employer]/computer document * Subjective Internal record Patient examined, chart reviewed, events of last 24 hours noted. See full dictated progress note for further details. ASSESSMENT AND PLAN: No significant change in general condition. Marely ent is resting comfortably in bed. Denies any new complaints. His lower abdomi nal discomfort is better. He remains afebrile with low-grade temperature. Recurrent fever and leukocyt osis most likely secondary to noninfectious causes. Recent complicated urinary tract infection with urinary retention. Bilateral lower extremity venous Doppler studies negative for DVT. D-dimer is elevated. Repeat urinalysis done on 2022 showed 1+ leukocyte esterase, more than 50 wbc's, more than 50 rbc's, trace bacteria. Repeat CBC with manual differentia done today sh ows no significant left shift with 8% band forms. Bilateral lower extremity ve nous Doppler studies Show no evidence of DVT in the lower extremities. DVT prophylaxis as per primary team. Continue empiric IV antibiotics for now. Discussed with Skylar MENDIOLA. Electronically Signed by Skip Jaffe MD on at 0242 RPT #:[id number] END OF REPORT 2022-10-21 11:23:00-00:00 [facility] ([facility] Nephrology Progress Note REPORT#:[id number] REPORT STATUS: Signed DATE:10/21/22 TIME: 1122 PATIENT: MATHEW CASTILLO UNIT #: [id number] ROOM/BED: 6630-1 : 59 AGE: 62 SEX: M ATTEND: Salinas Alba MD ADM AUTHOR: Carmen Kemp * ALL edits or amendments must be made on the [employer]/computer document * Carmen Kemp 10/21/22 1123: Subjective Chief complaint: Concern for ruptured ureter HPI: The patient seen and examined. Resting in bed, t olerating PO intake w/o any issue. Johns to gravity, good UOP. Review of Systems ROS comments: A 12 point ROS is obtained and is negative unles s specified in HPI Objective General VS/I O: Vital Signs: Date Time Temp Pulse Resp B/P B/P Pulse O2 O2 F low FiO2 Mean Ox Delivery Rate 10/21 1124 37.2 73 17 120/73 88.7 98 10/21 0722 37.1 70 17 123/76 91.5 98 10/21 0429 37.0 82 16 112/66 81.4 95 Room air 10/20 2352 37.1 80 16 125/75 91.8 94 Room air 10/20 1856 37.1 81 16 118/70 85.9 95 Room air 24 hour I O ending at 0700: 10/21 0700 10/20 1900 Intake Total 400 Output Total 800 Balance -400 Intake, Oral 400 Number 2 Bowel Movements Output, Urine 800 PATIENT WEIGHT: Weight (lb): Weight (oz): Weight (kg): 68.000 Medications Active Meds + DC'd Last 24 Hrs Magnesium Sulfate (MAGNESIUM SULFATE 4GM/SWFI 10 0ML) 100 ML ONCE ONE IV (DC) Potassium Chloride (POTASSIUM CHLORIDE 20MEQ TAB .ER) 40 MEQ ONCE ONE PO (DC) Piperacillin Sod/Tazobactam Sod (ZOSYN 3.375GM) 3.375 GM Q8H IV Sodium Chloride (SODIUM CHLORIDE 0.9% 100 ML) 1 00 ML Cholecalciferol (VITAMIN D) 1,000 INTL.UNITS NIDHI LY PO (CKD) Tamsulosin HCl (Flomax 0.4 mg) 0.4 MG PC DIN PO Acetaminophen (TYLENOL) 650 MG Q4H PRN PRN PO Docusate Sodium (COLACE) 100 MG BID PRN PRN PO Haloperidol (HALDOL) 10 MG BID PO Hydralazine HCl (APRESOLINE) 10 MG Q6H PRN PRN I V Hydrocodone Bitart/Acetaminophen (NORCO 5/325) 1 TAB Q6H PRN PRN PO (DC) Ondansetron HCl (ZOFRAN) 4 MG Q4H PRN PRN IV Benztropine Mesylate (COGENTIN) 1 MG DAILY PO Dextrose/Water (DEXTROSE 10% IN WATER) 125 ML DIR PRN IV (CKD) Dextrose/Water (DEXTROSE 10% IN WATER) 250 ML DIR PRN IV (CKD) Glucagon (GLUCAGON) 1 MG ASDIR PRN IM Insulin Human Lispro (HUMALOG) 0 AC HS SUBQ Dietitian nutrition assessment The data set between the solid lines has been im ported from the dietitian's assessment. BMI Calculated: 22.1 Nutrition related diagnosis: Nutrition diagnosis details: Nutrition problem: Nutrition etiology: Nutrition signs and symptoms: Nutrition prescription: Dietitian name: Assessment completed: Physical Exam General appearance: alert, awake, no acute distr ess Head/eyes: atraumatic, clear cornea, normal conj unctiva/sclera, normocephalic ENT: normal nose Neck: supple/no meningismus Cardiovascular: normal heart sounds Respiratory: decreased breath sounds, aerating w ell, no distress Abdomen: non-tender, soft Genitourinary: urinary catheter, urine Extremities: no edema Results Findings/Data: Laboratory Tests 10/21 10/21 10/21 10/21 10/20 1126 0723 0426 0426 1957 Chemistry Sodium (134 - 147 mEq/L) 140 Potassium (3.4 - 5.0 mEq/L) 3.0 L Chloride (100 - 108 mEq/L) 105 Carbon Dioxide (21 - 33 mEq/l) 29 Anion Gap (0 - 20) 9 BUN (7 - 18 mg/dL) 10 Creatinine (0.6 - 1.3 mg/dL) 0.9 Glomerular Filtr Rate (80 - 90) 96.0 H Glucose (70 - 110 mg/dL) 89 POC Glucose (70 - 110 MG/DL) 104 95 148 H Calcium (8.0 - 10.5 mg/dL) 7.3 L Magnesium (1.80 - 2.40 mg/dL) 1.50 L C-Reactive Protein (<10.0 mg/L) 36.0 H Laboratory Tests 10/21 425 Coagulation D-Dimer (<=500 ng/mlFEU) 5949 *H Laboratory Tests 10/21 425 Hematology WBC (4.5 - 11.0 x10 3/uL) 13.9 H RBC (4.00 - 5.60 x10 6/uL) 3.97 L Hgb (12.5 - 16.9 g/dL) 11.6 L Hct (37.5 - 50.7 %) 34.9 L MCV (81.0 - 99.0 fL) 87.9 MCH (27.0 - 33.0 pg) 29.2 MCHC (33.0 - 37.0 g/dL) 33.2 RDW (11.5 - 14.5 %) 13.9 Plt Count (150 - 400 x10 3/uL) 321 MPV (7.0 - 9.0 fL) 9.1 H Seg Neutrophils % (37 - 69 %) 78 H Band Neutrophils % (0.0 - 10.0 %) 8.0 Lymphocytes % (Manual) (23 - 55 %) 8 L Monocytes % (Manual) (0 - 10 %) 4 Eosinophils % (Manual) (0.0 - 4.0 %) 2 Platelet Estimate (ADEQUATE THOUSAND) Adequate Plt Morphology Comment LARGE PLATELETS Anisocytosis NORMAL Radiology data: Recent Impressions: ULTRASOUND - DUP VEIN ASAEL 10/21 0821 Report Impression - Status: SIGNED Entered: 10/21/2022 0912 IMPRESSION: No sonographic evidence for DVT Impression By: [email or web address] - Raisa Flores Diagnosis, Assessment Plan Free Text A P: Assessment and Plan: CHANDRA (Resolved) -Renal function improved and wnl, johns to gravi ty, s/p bicarb gtt. -2/2 post-obstrucitve uropathy, monitor for post -obstructive diuresis. -UA, urine lytes requested -Per Urology note: Reportedly the patient had 3L of urine in his bladder. CT abdomen from [place] showed that the patien t has a very large distended bladder with hydroureteronep hrosis and there does appear to be maybe a forniceal rupture or some back pressure into the kidneys c ausing some inflammation and possibly a small amount of u rine to come out through the forniceal areas that I do not see an actual ruptured ureter. The patien t's creatinine has improved. His symptoms have totally re solved with catheter placement. This can be managed conservatively. The patient will follow up as an outpatient. -Avoid nephrotoxicity monitor renal function and UOP Hypokalemia/Hypocalcemia/Hypomagnesemia -K+ and Mg replaced. Vitamin D deficiency, vitam in D supplement. -Monitor for post-obstructive diuresis and elect rolyte imbalance Urinary Retention/BPH -Johns to gravity, Urology following, on Tamsulo sin -Per Urology note: Reportedly the patient had 3L of urine in his bladder. CT abdomen from [place] showed that the patien t has a very large distended bladder with hydroureteronep hrosis and there does appear to be maybe a forniceal rupture or some back pressure into the kidneys c ausing some inflammation and possibly a small amount of u rine to come out through the forniceal areas that I do not see an actual ruptured ureter. The patien t's creatinine has improved. His symptoms have totally re solved with catheter placement. This can be managed conservatively. The patient will follow up as an outpatient. HTN -BP acceptable, monitor, on PRN IV hydralazine Schizophrenia -Home medications resumed Fever -Low grade fever on 10/19/22, blood cx (10/20/22): NGTD, B/L LE venous doppler (): Negative for DVT, on empiric abx per [facility] team. Discussed the plan with the patient, patient's denn[place] val[place], and . Toby Koehler 10/21/222053: Attestations Physician Attestation Reviewed findings plan: Ptient examined Renal function improved and wnl, johns to gravity, -2/2 post-obstrucitve uropathy, monitor for post -obstructive diuresis, low K replaced agree with above A/P at 1640 at 2054 RPT #:[id number] END OF REPORT 2022-10-21 03:59:00-00:00 [id number] [place] [address] PATIENT NAME: MATHEW CASTILLO ADMIT DATE: 10/16/22 ACCOUNT NO: [id number] ROOM NO: G.6630 AGE: 62 REPORT TYPE: CONSULTATION REPORT SEX: M ADMITTING PHYSICIAN:Salinas Alba MD ATTENDING PHYSICIAN:Salinas Alba MD CONSULTATION DATE: 10/20/2022 INFECTIOUS DISEASES CONSULTATION The patient examined, chart reviewed, old record s reviewed, full consult dictated. Thank you, Dr. Michael, for asking me to evaluate Mr. Mathew Castillo. HISTORY OF PRESENT ILLNESS: Mr. Castillo is a [age]-year-old male with past medical history of benign pr ostatic hypertrophy with recurrent urinary symptoms, history of schizophrenia, currently disa bled because of schizophrenia, who was initially admitted to hospital in [facility] here he presented with acute urinary retention. The patient reportedly was un able to pass urine for 2 days and he was found to have markedly distended blad sagar with bilateral hydronephrosis and there was a suspicion for ext ravasation of urine. The patient had a Johns catheter placed at that facility and subsequently he started to have urine output and his bladder apparently had about 3 liters of urine. The patient was also found t o have acute renal failure. Because of the need for urology evaluation, he was t ransferred to [facility] on 10/16/2022 for admission. On admission, the patient was afebrile; however, he did have elevated BUN and creatinine and he was started empirically on IV ceftriaxone. The patient was evaluated by Dr. Banks in nephrology consultation and with supportive treatment, he s tarted to show improvement in his condition. The patient yesterday, however, s tarted to have temperature of up to 37.8 degrees Celsius without any other obv ious source of infection. He had workup done including CBC and BMP that was n ot much impressive; however, this morning, he was found to have leukocytosis of around 19,000 without any other obvious source of infection. The patient w as empirically switched to IV Zosyn. Infectious diseases consultation is reque sted for evaluation of the patient for fever, recurrent leukocytosi s, complicated urinary tract infection and for advice regarding further antibiotic maritza tment as necessary. REVIEW OF SYSTEMS: The patie nt currently appears awake, alert, and comfortable. He denies any headache, dizziness or blurring o f vision. He did have a temperature of up to 37.8 de grees Celsius deputy manager today and after that he had been only having low-grade fever. De nies any nausea, vomiting or diarrhea. Denies any chest pain, cough, expectoration, or shortness of breath. He continues to have a Johns ca theter in place and admits to having suprapubic area soreness and pain, however, states that the pain and soreness he had at the time of presentation to the [facility] has resolved. Denies any joint pains. He is ambulating within the room. PATIENT NAME: MATHEW CASTILLO The patient states that he had 3 soft bowel move ments today, but no ladan diarrhea and he also had been having difficulty in urination for last over 2 years. States that sometimes he would go to bath room and would feel that he wants to pass urine, but he was unable t o and then he would take some rest and go back and was able to pass urine. PAST MEDICAL HISTORY: Significant for schizophre tahira diagnosed several decades ago, history of hypertension, history of benign prostatic hypertrophy. The patient currently on disability because of his s chizophrenia. PAST SURGICAL HISTORY: Unremarkable. ALLERGIES: THE PATIENT HAS NO KNOWN DRUG ALLERGI ES. SOCIAL AND PERSONAL HISTORY: The patient is curr ently single, lives with his daughter, has been a smoker and continues to smo ke. Denies any history of alcohol use, IV drug use or substance abuse. 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 VACCINATION HISTORY: The patient has received CO VID-19 vaccine two doses. He is not sure of the brand. Has not received any f urther booster doses. CURRENT MEDICATIONS: Include benztropine, cholec alciferol, lispro insulin, tamsulosin, haloperidol, Zosyn IV, Tylenol p.r.n ., docusate sodium p.r.n., glucagon p.r.n., hydrocodone bitartrate p.r.n., hydralazine p.r.n., ondansetron p.r.n. PHYSICAL EXAMINATION: GENERAL: The patient is resting comfortably in b ed. He is awake and alert, does not appear to be toxic, does not appear to be in any acute distress. VITAL SIGNS: Temperature maximum in last 24 hour s is 37.8 degrees Celsius. Current temperature is 37.1 degrees Celsius, blo od pressure is 118/70, respirations 16 per minute, pulse is 80 per bryan te. The patient's weight is around 68 kg. HEENT: Head is atraumatic and normocephalic. Pup ils are equal, round and reacting to light and accommodation bilaterally. Extraocular movements are intact. Oropharynx is clear. Oral hygiene is lyric r. NECK: Supple. JVD is absent. No carotid bruit, t hyromegaly, or cervical lymphadenopathy. LUNGS: There is fair air entry bilaterally. CARDIOVASCULAR: S1, S2 audible. No murmur, rick p, S3 or S4 appreciated. ABDOMEN: Soft and slightly bulging. The patient has mild suprapubic area tenderness. No hepatosplenomegaly. Bowel sounds are normoactive. Has minimal tenderness at the renal angles bilaterally. GENITOURINARY: The patient has indwelling Johns catheter in place. The catheter appears to be working fine and has clear urine and being drained into the bag. EXTREMITIES: Both calves are soft. No calf tende rness. No pedal edema. Peripheral pulses are faintly palpable bilateral ly. SKIN: The patient's peripheral IV sites are cielo n without any evidence of phlebitis. LABORATORY DATA: WBC on admission was about 11,0 00. WBC yesterday was around PATIENT NAME: MATHEW CASTILLO ACCOUNT #: [id number] 10,000 with hemoglobin of 12, hematocrit of 36, platelet count 313. WBC today has increased to around 19,0 00 with hemoglobin of 12, hematocrit of 37, platelet count is 328. Automated differentials show 81% n eutrophils, 2% immature granulocytes, 7% lymphocyte, 8%, monocyt e, 2% eosinophil. Lactic acid today is 1.1. PT is 12.7, INR 1.1, PTT is 26.1. No urinal ysis or urine culture available from the day of admission; however, re portedly the patient did have evidence of urinary tract infection at [facility] transferring facility. TSH is 1.59. Hemoglobin A1c on admission was 5.5. Vitamin D 2 5-hydroxy, cholecalciferol is 25.5. MRSA screen done on 10/19/2022 is negative. The patient had a urinalysis done on 10/19/2022 early mor toni that showed slightly cloudy urine with negative ketones, 3+ blood, 1+ protein, 1+ leukoc yte esterase, more than 50 rbc's, more than 50 wbc's, trace bacteria, 11-20 hyaline amy ts, 1+ mucus. Urine random sodium is 102. Urine random protein is 79. Urine random creatinine is 112. Urine osmolality is 575. The patient had a CBC d one today that showed WBC of 19,000 with hemoglobin of 12, hematocrit of 37, platelet count 328. BUN today was 12, creatinine 0.8, estimated GFR 99, total protein 5.0, albumin 2.3, calcium 7.2, bilirubin 0.3, AST 25, ALT 28, alkaline phosphatase is 47, lipase is 57. Chest x-ray done toda y shows mild interstitial pulmonary edema, no focal consolidation. High-sensitivity troponin I is le ss than 3. Repeat CBC done this morning showed WBC around 18,000 wi th hemoglobin of 12, hematocrit of 37, platelet count 341. Repeat troponin I high sensi tivity is less than 3. The patient had 2 blood cultures done deputy manager today, which are incubating. IMPRESSION: The patient with multiple comorbidit ies including history of schizophrenia and benign prostatic hypertrophy w ith worsening urinary difficulties for last over 2 years, was admitted through emergency room where he was transferred from [facility] of need for urology evaluation. The patient had presented there with acute urinary retention with 2 days of no urine output and he was found to have about 3 liters of urine in the bladder and had bilateral hydronephrosis. The yoel lund had complicated urinary tract infection, for which nely castanon was treated with IV ceftriaxone and had been doing fairly well. The patient was also in acute renal failure that showed improvement with conservative treatment. He was evaluated by urology service and further workup is suggested as an outpatient . The patient, however, had developed low-grade fever of up to 37.8 degrees Celsius last night and deputy manager and had developed ma rked leukocytosis. Clinically, he shows no signs of acute toxicity and the fever and leukocytosis in this setting most likely could be secondary to noninfectious causes. In view of his current illness, it will be appropriate to rule out deep venous thrombosi s and low-grade PE. Other possibility could be develop ing Clostridium difficile colitis which needs to be closely monitored for. At present, the p atient had 3 soft bowel movements, but no ladan diarrhea and if he develops diarrhea, t hen we will consider further workup. Clinically, he shows no signs of any ove rwhelming new infection; however, since his antibiotic regimen had been b roadened to Zosyn IV, we will for now keep him on the same while his further w orkup is in progress. SUGGEST: 1. A CBC with manual differential in the morning . 2. Monitor the patient for any further temperatu re spike. 3. Get inflammatory markers including D-dimer an d C-reactive protein with the morning labs. 4. Bilateral lower extremity venous Doppler stud ies to rule out DVT. 5. Continue empiric IV antibiotics for now. 6. Further recommendations to follow depending o n the clinical course of the PATIENT NAME: MATHEW CASTILLO ACCOUNT #: [id number] patient. Thank you again for inviting me to participate i n the care of your patient. I will continue to follow along with you. The case was discussed with MARLENA Cheng, and with the patient's nursing staff. Dictated By: Skip Jaffe MD Date Dictated: 10/21/2022 03:59:46 Date Transcribed: 10/21/2022 04:40:04 HIGGINS/MAN Receipt ID: [id number] Authenticated by Skip Jaffe MD On 11/02/2022 02:22:37 AM Electronically Signed by Skip Jaffe MD on at 0222 PATIENT NAME: MATHEW CASTILLO ACCOUNT #: [id number] 2022-10-20 20:34:00-00:00 [facility] Nephrology Progress Note REPORT#:[id number] REPORT STATUS: Signed DATE:10/20/22 TIME: 2033 PATIENT: MATHEW CASTILLO UNIT #: [id number] ROOM/BED: [place] [address] : 59 AGE: 62 SEX: M ATTEND: Salinas Alba MD ADM AUTHOR: Toby Koehler MD * ALL edits or amendments must be made on the [employer]/computer document * Subjective Chief complaint: Concern for ruptured ureter HPI: The patient seen and examined. Resting i n bed, denies any N/V/D, tolerating PO intake w/o any issue. Johns to gravity, good UOP . Objective General VS/I O: Vital Signs: Date Time Temp Pulse Resp B/P B/P Pulse O2 O2 F low FiO2 Mean Ox Delivery Rate 10/20 1856 37.1 81 16 118/70 85.9 95 Room air 10/20 1620 37.1 77 15 114/71 85.4 97 Room air 10/20 0754 37.0 72 15 123/78 92.9 95 Room air 10/20 0424 36.5 74 16 115/70 84.9 98 Room air 10/20 0027 37.5 10/19 2351 37.8 84 16 118/69 85.4 98 Room air 24 hour I O ending at 0700: 10/20 0700 10/19 1900 Intake Total 500 Output Total 1100 600 Balance -600 -600 Intake, Oral 500 Number 2 Bowel Movements Output, Urine 1100 600 PATIENT WEIGHT: Weight (lb): Weight (oz): Weight (kg): 68.000 Medications Active Meds + DC'd Last 24 Hrs Piperacillin Sod/Tazobactam Sod (ZOSYN 3.375GM) 3.375 GM Q8H IV Sodium Chloride (SODIUM CHLORIDE 0.9% 100 ML) 1 00 ML Sodium Chloride (SODIUM CHLORIDE 0.9%) 1,000 ML BOLUS STA IV (DC) Ceftriaxone Sodium (ROCEPHIN 1000MG VIAL) 1,000 MG Q24H IV (CAN) Sodium Chloride (SODIUM CHLORIDE) 10 ML Magnesium Sulfate (MAGNESIUM SULFATE 2GM/SWFI 50 ML) 50 ML ONCE ONE IV ( DC) Cholecalciferol (VITAMIN D) 1,000 INTL.UNITS NIDHI LY PO (CKD) Tamsulosin HCl (Flomax 0.4 mg) 0.4 MG PC DIN PO Acetaminophen (TYLENOL) 650 MG Q4H PRN PRN PO Docusate Sodium (COLACE) 100 MG BID PRN PRN PO Haloperidol (HALDOL) 10 MG BID PO Hydralazine HCl (APRESOLINE) 10 MG Q6H PRN PRN I V Hydrocodone Bitart/Acetaminophen (NORCO 5/325) 1 TAB Q6H PRN PRN PO Ondansetron HCl (ZOFRAN) 4 MG Q4H PRN PRN IV Benztropine Mesylate (COGENTIN) 1 MG DAILY PO Dextrose/Water (DEXTROSE 10% IN WATER) 125 ML DIR PRN IV (CKD) Dextrose/Water (DEXTROSE 10% IN WATER) 250 ML DIR PRN IV (CKD) Glucagon (GLUCAGON) 1 MG ASDIR PRN IM Insulin Human Lispro (HUMALOG) 0 AC HS SUBQ Physical Exam General appearance: alert, awake, oriented Head/eyes: atraumatic, clear cornea, normal conj unctiva/sclera, normocephalic ENT: normal nose Neck: supple/no meningismus Cardiovascular: normal heart sounds Respiratory: decreased breath sounds, aerating w ell, no distress Abdomen: distended Genitourinary: urinary catheter, urine Extremities: no edema Results Findings/Data: Laboratory Tests 10/20 10/20 10/20 10/20 10/20 1619 1208 0753 0403 0402 Chemistry Sodium (134 - 147 mEq/L) 138 Potassium (3.4 - 5.0 mEq/L) 3.4 Chloride (100 - 108 mEq/L) 107 Carbon Dioxide (21 - 33 mEq/l) 20 L Anion Gap (0 - 20) 14 BUN (7 - 18 mg/dL) 9 Creatinine (0.6 - 1.3 mg/dL) 0.8 Glomerular Filtr Rate (80 - 90) 99.4 H Glucose (70 - 110 mg/dL) 84 POC Glucose (70 - 110 MG/DL) 118 H 122 H 102 Calcium (8.0 - 10.5 mg/dL) 7.1 L Troponin I High Sens (0 - 54 ng/L) < 3 < 3 10/20 10/20 10/20 0115 0115 0115 Chemistry Sodium (134 - 147 mEq/L) 138 Potassium (3.4 - 5.0 mEq/L) 3.0 L Chloride (100 - 108 mEq/L) 105 Carbon Dioxide (21 - 33 mEq/l) 30 Anion Gap (0 - 20) 6 BUN (7 - 18 mg/dL) 12 Creatinine (0.6 - 1.3 mg/dL) 0.8 Glomerular Filtr Rate (80 - 90) 99.4 H Glucose (70 - 110 mg/dL) 115 H Lactic Acid (0.4 - 1.9 mmol/L) 1.1 Calcium (8.0 - 10.5 mg/dL) 7.2 L Total Bilirubin (0.0 - 1.0 mg/dL) 0.30 AST (15 - 37 IUnit/L) 25 ALT (30 - 65 IUnit/L) 28 L Total Alk Phosphatase (20 - 125 IUnit/L) 47 Troponin I High Sens (0 - 54 ng/L) < 3 Total Protein (6.4 - 8.2 g/dL) 5.0 L Albumin (3.4 - 5.0 g/dL) 2.30 L Lipase (13 - 57 U/L) 57 Laboratory Tests 10/20 114 Coagulation INR (0.8 - 1.2) 1.1 PTT (Home) (25.0 - 39.5 Seconds) 26.1 PT Patient/Control Mix (9.3 - 12.9 SECONDS) 12. 7 Laboratory Tests 10/20 10/20 0410 0115 Hematology WBC (4.5 - 11.0 x10 3/uL) 17.6 H 19.1 H RBC (4.00 - 5.60 x10 6/uL) 4.08 4.20 Hgb (12.5 - 16.9 g/dL) 11.7 L 12.3 L Hct (37.5 - 50.7 %) 36.5 L 37.2 L MCV (81.0 - 99.0 fL) 89.5 88.6 MCH (27.0 - 33.0 pg) 28.7 29.3 MCHC (33.0 - 37.0 g/dL) 32.1 L 33.1 RDW (11.5 - 14.5 %) 14.0 13.8 Plt Count (150 - 400 x10 3/uL) 341 328 MPV (7.0 - 9.0 fL) 9.5 H 8.9 Neut % (Auto) (56.0 - 77.0 %) 78.3 H 80.7 H Lymph % (Auto) (14.0 - 32.0 %) 9.5 L 7.3 L Crosby % (Auto) (4.8 - 9.0 %) 7.2 7.5 Eos % (Auto) (0.3 - 3.7 %) 2.6 2.2 Baso % (Auto) (0.0 - 2.0 %) 0.4 0.3 Neut # (Auto) (2.0 - 7.6 x10 3/uL) 13.75 H 15.3 8 H Lymph # (Auto) (1.0 - 3.8 x10 3/uL) 1.67 1.40 Crosby # (Auto) (0.1 - 0.8 x10 3/uL) 1.27 H 1.44 H Eos # (Auto) (0.0 - 0.2 x10 3/uL) 0.46 H 0.42 H Baso # (Auto) (0.0 - 0.2 x10 3/uL) 0.07 0.05 Abs Immat Gran (auto) (0.00 - 0.03 x10 3/uL) 0. 35 H 0.39 H Add Manual Diff NO NO Immature Gran % (0.0 - 2.0 %) 2.0 2.0 Nucleated RBC % (0 - 0 %) 0.0 0.0 Nucleated RBCs # (Man) (0.0 - 0.1 x10 3/uL) 0.0 0 0.00 Radiology data: Recent Impressions: RADIOLOGY - XR CHEST 1 V 10/20 0107 Report Impression - Status: SIGNED Entered: 10/20/2022214 IMPRESSION: Mild interstitial pulmonary edema. No focal cons olidation. Impression By: [email or web address] - Raisa Jaquez Diagnosis, Assessment Plan Free Text A P: Assessment and Plan: CHANDRA (Resolved) -Renal function improved and wnl, johns to gravity, on bicarb gtt, will d/c now. -2/2 post-obstrucitve uropathy, monitor for post -obstructive diuresis. -UA, urine lytes requested -Per Urology note: Reportedly the patient had 3L of urine in his bladder. CT abdomen from [place] showed that the patien t has a very large distended bladder with hydroureteronep hrosis and there does appear to be maybe a forniceal rupture or some back pressure into the kidneys c ausing some inflammation and possibly a small amount of u rine to come out through the forniceal areas that I do not see an actual ruptured ureter. The patien t's creatinine has improved. His symptoms have totally re solved with catheter placement. This can be managed conservatively. The patient will follow up as an outpatient. -Avoid nephrotoxicity monitor renal function and UOP Hypokalemia/Hypocalcemia/Hypomagnesemia -K+ and Mg replaced. Vitamin D deficiency, vitam in D supplement. -Monitor for post-obstructive diuresis and elect rolyte imbalance Urinary Retention/BPH -Johns to gravity, Urology following, on Tamsulo sin -Per Urology note: Reportedly the patient had 3L of urine in his bladder. CT abdomen from [place] showed that the patien t has a very large distended bladder with hydroureteronep hrosis and there does appear to be maybe a forniceal rupture or some back pressure into the kidneys c ausing some inflammation and possibly a small amount of u rine to come out through the forniceal areas that I do not see an actual ruptured ureter. The patien t's creatinine has improved. His symptoms have totally re solved with catheter placement. This can be managed conservatively. The patient will follow up as an outpatient. HTN -BP acceptable, monitor, on PRN IV hydralazine Schizophrenia -Home medications resumed at 2150 RPT #:[id number] END OF REPORT 2022-10-20 18:11:00-00:[address] [facility]) Internal Medicine Prog. Note REPORT#:[id number] REPORT STATUS: Signed DATE:10/20/22 TIME: 1810 PATIENT: MATHEW CASTILLO UNIT #: [id number] ROOM/BED: 6630-1 : 59 AGE: 62 SEX: M ATTEND: Salinas Alba MD ADM AUTHOR: Sofia Cheng NP * ALL edits or amendments must be made on the [employer]/computer document * Subjective Chief complaint: Abdominal distention, hydronephrosis HPI: 62-year-old male with last medical history of, B PH, transferred from [place] for urology evaluation and treatment sec ondary to possible ruptured ureter. As per patient his a bdomen was distended for at least for 2 days and he was having difficulty urinating. Patient present ed to outside facilityImaging revealed severe bilateral hydronephrosis with ev idence of active urine extravasation and large amou nt of urine in the bladder pushing all the way up to the abdomen. As per patient' s daughter about 3 L of fluid was removed within 10 minutes of Johns insertion. Patient reports he h as been experiencing urinary hesitancy for the past 2 to 3 years. Den ies seeing a urologist. Patient denies fever, chills, dysuria, robert turia, or other associated symptoms. Patient denies shortness of breath, chest pain, nausea, vomitin g, diarrhea, constipation. Admission vital signs blood pressure 146/78, pul se 92, respiration 18, temperature 37.1, O2 sat 96% on room air. Abnormal labs: Hemoglobin 10.9, hematocrit 31.7, potass ium 2.8, chloride 114, CO2 18, BUN 41, creatinine 2.1, glucose 643Calcium 4.9. Review of Systems Additional notes: Constitutional: Denies: chills, fever. ENT: Denies: earache, nasal congestion, sore throat. Respiratory: Denies: hemoptysis, parox nocturnal dyspnea, pl eurisy, pleuritic pain, pneumonia, SOB, wheezing. Cardiovascular: Denies: chest pain, palpitations. GI: Reports: abdominal pain. Denies: nausea, vomiti ng. : Reports: flank pain, urinary retention. Denies: frequency, hematuria. Musculoskeletal: Arthritis: Denies: left upper, left lower, right upper, ri ght lower. Neuro: Denies: change in LOC, confusion, dizziness, fo brendan weakness, gait problem, headache, lightheaded, numbness, seizure, slurr ed speech, spinning sensation, syncope, unable to speak, vision jenni nge. Psych: Reports: anxiety. Denies: agitation, change in mental status, confusion, depression, homicidal ideation, hostile, insomn ia, stress, suicidal ideation. Objective General VS/I O: Vital Signs Date Temp Pulse Resp B/P B/P Mean Pulse Ox FiO2 10/19-10/20 36.5-37.8 72-84 - 114-123/69-78 84.7-92.9 95-98 Last Documented: Result Date Time Pulse Ox 97 10/20 1620 B/P 114/71 10/20 1620 B/P Mean 85.4 10/20 1620 O2 Delivery Room air 10/20 1620 Temp 37.1 10/20 1620 Pulse 77 10/20 1620 Resp 15 10/20 1620 24 hour I O ending at 0700: 10/20 0700 10/19 1900 Intake Total 500 Output Total 1100 600 Balance -600 -600 Intake, Oral 500 Number 2 Bowel Movements Output, Urine 1100 600 PATIENT WEIGHT: Weight (lb): Weight (oz): Weight (kg): 68.000 Medications: Active Meds + DC'd Last 24 Hrs Piperacillin Sod/Tazobactam Sod (ZOSYN 3.375GM) 3.375 GM Q8H IV Sodium Chloride (SODIUM CHLORIDE 0.9% 100 ML) 1 00 ML Sodium Chloride (SODIUM CHLORIDE 0.9%) 1,000 ML BOLUS STA IV (DC) Ceftriaxone Sodium (ROCEPHIN 1000MG VIAL) 1,000 MG Q24H IV (CAN) Sodium Chloride (SODIUM CHLORIDE) 10 ML Magnesium Sulfate (MAGNESIUM SULFATE 2GM/SWFI 50 ML) 50 ML ONCE ONE IV ( DC) Cholecalciferol (VITAMIN D) 1,000 INTL.UNITS NIDHI LY PO (CKD) Tamsulosin HCl (Flomax 0.4 mg) 0.4 MG PC DIN PO Acetaminophen (TYLENOL) 650 MG Q4H PRN PRN PO Docusate Sodium (COLACE) 100 MG BID PRN PRN PO Haloperidol (HALDOL) 10 MG BID PO Hydralazine HCl (APRESOLINE) 10 MG Q6H PRN PRN I V Hydrocodone Bitart/Acetaminophen (NORCO 5/325) 1 TAB Q6H PRN PRN PO Ondansetron HCl (ZOFRAN) 4 MG Q4H PRN PRN IV Benztropine Mesylate (COGENTIN) 1 MG DAILY PO Dextrose/Water (DEXTROSE 10% IN WATER) 125 ML DIR PRN IV (CKD) Dextrose/Water (DEXTROSE 10% IN WATER) 250 ML DIR PRN IV (CKD) Glucagon (GLUCAGON) 1 MG ASDIR PRN IM Insulin Human Lispro (HUMALOG) 0 AC HS SUBQ Results Findings/Data: Laboratory Tests 10/20/22 0410: [Embedded Image Not Available] 10/20/22 0403: [Embedded Image Not Available] 10/20/22 0115: [Embedded Image Not Available] Laboratory Tests 10/20 10/20 10/20 10/20 10/20 1619 1208 0753 0403 0402 Chemistry Sodium (134 - 147 mEq/L) 138 Potassium (3.4 - 5.0 mEq/L) 3.4 Chloride (100 - 108 mEq/L) 107 Carbon Dioxide (21 - 33 mEq/l) 20 L Anion Gap (0 - 20) 14 BUN (7 - 18 mg/dL) 9 Creatinine (0.6 - 1.3 mg/dL) 0.8 Glomerular Filtr Rate (80 - 90) 99.4 H Glucose (70 - 110 mg/dL) 84 POC Glucose (70 - 110 MG/DL) 118 H 122 H 102 Calcium (8.0 - 10.5 mg/dL) 7.1 L Troponin I High Sens (0 - 54 ng/L) < 3 < 3 10/20 10/20 10/20 10/19 0115 0115 0115 1917 Chemistry Sodium (134 - 147 mEq/L) 138 Potassium (3.4 - 5.0 mEq/L) 3.0 L Chloride (100 - 108 mEq/L) 105 Carbon Dioxide (21 - 33 mEq/l) 30 Anion Gap (0 - 20) 6 BUN (7 - 18 mg/dL) 12 Creatinine (0.6 - 1.3 mg/dL) 0.8 Glomerular Filtr Rate (80 - 90) 99.4 H Glucose (70 - 110 mg/dL) 115 H POC Glucose (70 - 110 MG/DL) 135 H Lactic Acid (0.4 - 1.9 mmol/L) 1.1 Calcium (8.0 - 10.5 mg/dL) 7.2 L Total Bilirubin (0.0 - 1.0 mg/dL) 0.30 AST (15 - 37 IUnit/L) 25 ALT (30 - 65 IUnit/L) 28 L Total Alk Phosphatase (20 - 125 IUnit/L) 47 Troponin I High Sens (0 - 54 ng/L) < 3 Total Protein (6.4 - 8.2 g/dL) 5.0 L Albumin (3.4 - 5.0 g/dL) 2.30 L Lipase (13 - 57 U/L) 57 Laboratory Tests 10/20 0115 Coagulation INR (0.8 - 1.2) 1.1 PTT ([place]) (25.0 - 39.5 Seconds) 26.1 PT Patient/Control Mix (9.3 - 12.9 SECONDS) 12. 7 Laboratory Tests 10/20 10/20 0410 0115 Hematology WBC (4.5 - 11.0 x10 3/uL) 17.6 H 19.1 H RBC (4.00 - 5.60 x10 6/uL) 4.08 4.20 Hgb (12.5 - 16.9 g/dL) 11.7 L 12.3 L Hct (37.5 - 50.7 %) 36.5 L 37.2 L MCV (81.0 - 99.0 fL) 89.5 88.6 MCH (27.0 - 33.0 pg) 28.7 29.3 MCHC (33.0 - 37.0 g/dL) 32.1 L 33.1 RDW (11.5 - 14.5 %) 14.0 13.8 Plt Count (150 - 400 x10 3/uL) 341 328 MPV (7.0 - 9.0 fL) 9.5 H 8.9 Neut % (Auto) (56.0 - 77.0 %) 78.3 H 80.7 H Lymph % (Auto) (14.0 - 32.0 %) 9.5 L 7.3 L Crosby % (Auto) (4.8 - 9.0 %) 7.2 7.5 Eos % (Auto) (0.3 - 3.7 %) 2.6 2.2 Baso % (Auto) (0.0 - 2.0 %) 0.4 0.3 Neut # (Auto) (2.0 - 7.6 x10 3/uL) 13.75 H 15.3 8 H Lymph # (Auto) (1.0 - 3.8 x10 3/uL) 1.67 1.40 Crosby # (Auto) (0.1 - 0.8 x10 3/uL) 1.27 H 1.44 H Eos # (Auto) (0.0 - 0.2 x10 3/uL) 0.46 H 0.42 H Baso # (Auto) (0.0 - 0.2 x10 3/uL) 0.07 0.05 Abs Immat Gran (auto) (0.00 - 0.03 x10 3/uL) 0. 35 H 0.39 H Add Manual Diff NO NO Immature Gran % (0.0 - 2.0 %) 2.0 2.0 Nucleated RBC % (0 - 0 %) 0.0 0.0 Nucleated RBCs # (Man) (0.0 - 0.1 x10 3/uL) 0.0 0 0.00 Radiology data: Recent Impressions: RADIOLOGY - XR CHEST 1 V 10/20 0107 Report Impression - Status: SIGNED Entered: 10/20/2022 0215 IMPRESSION: Mild interstitial pulmonary edema. No focal cons olidation. Impression By: Shayy - Raisa Jaquez Diagnosis, Assessment Plan Hospital course to date: General appearance: alert, awake Head/Eyes: atraumatic, clear cornea, EOMI, normo cephalic, normal conjunctiva/ sclera, normal eyelids/periorb, PERRLA ENT: normal dentition, normal ear left, normal e ar right, normal nose, normal pharynx, normal sinus Cardiovascular: regular rate rhythm Respiratory: decreased breath sounds, clear to a uscultation, no distress, no tenderness Abdomen/GI: active bowel sounds, soft Abdomen quadrants: LLQ normal bowel sounds, LLQ tenderness, LUQ nor mal bowel sounds, RLQ normal bowel sounds, RLQ tenderness, RUQ normal bowel s ounds Genitourinary: johns Extremities: moves all, no edema-all extremities , normal capillary refill, normal range of motion, normal sensory, normal m otor function Neuro/SHOULDER SAWYER: 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 Rupture of ureter Free Text DxA P Notes Free text DxA P notes: Assessment: 62-year-old male with last medical history of, B PH, transferred from [place] for urology evaluation and treatment sec ondary to possible ruptured ureter. As per patient his a bdomen was distended for at least for 2 days and he was having difficulty urinating. Patient present ed to outside facilityImaging revealed severe bilateral hydronephrosis with ev idence of active urine extravasation and large amou nt of urine in the bladder pushing all the way up to the abdomen. As per patient' s daughter about 3 L of fluid was removed within 10 minutes of Johns insertion. Patient reports he h as been experiencing urinary hesitancy for the past 2 to 3 years. 1. Abdominal distention, severe bilateral hydron ephrosis, large amount of urinary retention -Status post Johns insertion large amount of ur ine was obtained 2. Acute kidney injury 3. Hypokalemia/hypocalcemia, hyperchloremia 4. Metabolic acidosis 5. Possible BPH 6. Severe bilateral hydronephrosis 7. Hypertension 8. Schizophrenia Plan of care: Admit patient for further evaluation and treatme nt Urology consultation in place Keep Johns to bedside drainage I's and O's Monitor renal function Nephrology consultation Replace electrolytes Start tamsulosin Bicarb drip started Repeat CT of the abdomen and pelvis if needed Repeat labs Further recommendation based on patient's clinic al course 10/17/2022 Vital signs within normal limits Hypokalemia 3.2, hypomagnesemia 1.50 Renal function is improved, discontinue bicarb d rip, continue electrolyte control-replace as needed per nephro Urology is following Continue tamsulosin BP control-on hydralazine as needed, pain contro l Continue telemetry monitoring, intake and output , fall precaution Follow-up labs, continue medications and support nya care 10/18/2022 BP is controlled Hypocalcemia 7.4, hypomagnesemia 1.5, Hypokalemi a 3.1 MRSA surveillance screen pending results Uro and Nephro are following Started on cholecalciferol p.o., still on tamsul osin Electrolyte control- magnesium and potassium rep laced Fall precaution Follow-up labs, continue medications and support nya care 10/19/2022 Vital signs within normal limits, POC glucose is controlled Hypocalcemia 7.5, hypomagnesemia 1.65 MRSA surveillance screen is negative Continue electrolyte control, replace as needed Patient is able to tolerate p.o. intake Renal function is improved, discontinue bicarb drip today, continue BP control on IV hydralazine per nephro Continue tamsulosin p.o. Pain control, glycemic control, fall precaution Follow-up labs, continue medications and present care 10/20/2022 Patient has no new complaints, stable Hypocalcemia Blood culture pending results X-ray of the chest shows mild interstitial pulmo nary edema. No focal consolidation. Consultants evaluations noted Electrolyte control replace magnesium Started on IV antibiotic Zosyn Consult placed to Dr. Jaffe for patients UTI Troponin I Blood precaution, glycemic control Follow-up EKG, labs, continue medications and sarah pportive care Electronically Signed by Sofia Cheng QA TEST LEAD on 0 10/22/22 at 0141 Electronically Signed by Salinas Alba MD o n 10/23/22 at 1009 RPT #:[id number] END OF REPORT 2022-10-20 17:06:00-00:00 [facility] ([facility]) Infect Disease Consult Note REPORT#:[id number] REPORT STATUS: Signed DATE:10/20/22 TIME: 1705 PATIENT: MATHEW CASTILLO UNIT #: [id number] ROOM/BED: G6630-1 : 59 AGE: 62 SEX: M ATTEND: Salinas Alba MD ADM AUTHOR: Skip Jaffe MD * ALL edits or amendments must be made on the [employer]/computer document * History of Present Illness HPI: Thank you for the consultation. Patient's curren t and old record reviewed. Orders initiated. See full dictated consultation report for further details. ASSESSMENT AND PLAN: Recurrent fever and leukocyt osis most likely secondary to noninfectious causes. Recent complicated urinary tract infection with urinary retention. Rule out DVT and low-grade PE. Doubt any new nosocomial acquired infection. Repeat CBC with manual differential in the morni ng. Bilateral lower extremity venous Doppler studies . Inflammatory markers with the morning labs tomor row. Continue empiric IV antibiotics for now. History - Adult longitudinal Allergies: Coded Allergies: No Known Allergies (10/16/22) Electronically Signed by Skip Jaffe MD on at 0239 RPT #:[id number] END OF REPORT 2022-10-20 01:07:00-00:00 [id number] [place] [address] PATIENT NAME: MTAHEW CASTILLO ADMIT DATE: 10/16/22 ACCOUNT NO: [id number] ROOM NO: [facility] [place] AGE: 62 REPORT TYPE: eELECTROCARDIOGRAM REPORT SEX: M ADMITTING PHYSICIAN:Salinas Alba MD ATTENDING PHYSICIAN:Salinas Alba MD Order: [id number] Test Reason : Sepsis Test Date/Time Stamp: FriOct 20 2022 01:07:09 Blood Pressure : / mmHG Vent. Rate : 076 BPM Atrial Rate : 076 BPM P-R Int : 124 ms QRS Dur : 080 ms QT Int : 414 ms P-R-T Axes : 058 -01 022 degree s QTc Int : 465 ms Normal sinus rhythm Normal ECG No previous ECGs available Confirmed by MD ESMER, ESMER ([id number]) on 3 12:47:02 PM Referred By: Salinas Dukes Confirmed by:ESMER HERRON MD Electronically Signed by Esmer Herron MD on at 1297 PATIENT NAME: MATHEW CASTILLO SINCERE ACCOUNT #: [id number] 2022-10-19 22:43:00-00:[address] [facility]) Internal Medicine Prog. Note REPORT#:[id number] REPORT STATUS: Signed DATE:10/19/22 TIME: 2242 PATIENT: MATHEW CASTILLO UNIT #: [id number] ROOM/BED: 66301 : 59 AGE: 62 SEX: M ATTEND: Salinas Lopez MD ADM AUTHOR: Sofia Cheng QA TEST LEAD * ALL edits or amendments must be made on the [employer]/computer document * Subjective Chief complaint: Abdominal distention, hydronephrosis HPI: 62-year-old male with last medical history of, B PH, transferred from [place] for urology evaluation and treatment sec ondary to possible ruptured ureter. As per patient his a bdomen was distended for at least for 2 days and he was having difficulty urinating. Patient present ed to outside facilityImaging revealed severe bilateral hydronephrosis with ev idence of active urine extravasation and large amou nt of urine in the bladder pushing all the way up to the abdomen. As per patient' s daughter about 3 L of fluid was removed within 10 minutes of Johns insertion. Patient reports he h as been experiencing urinary hesitancy for the past 2 to 3 years. Den ies seeing a urologist. Patient denies fever, chills, dysuria, robert turia, or other associated symptoms. Patient denies shortness of breath, chest pain, nausea, vomitin g, diarrhea, constipation. Admission vital signs blood pressure 146/78, pul se 92, respiration 18, temperature 37.1, O2 sat 96% on room air. Abnormal labs: Hemoglobin 10.9, hematocrit 31.7, potass ium 2.8, chloride 114, CO2 18, BUN 41, creatinine 2.1, glucose 643Calcium 4.9. Review of Systems Additional notes: Constitutional: Denies: chills, fever. ENT: Denies: earache, nasal congestion, sore throat. Respiratory: Denies: hemoptysis, parox nocturnal dyspnea, pl eurisy, pleuritic pain, pneumonia, SOB, wheezing. Cardiovascular: Denies: chest pain, palpitations. GI: Reports: abdominal pain. Denies: nausea, vomiti ng. : Reports: flank pain, urinary retention. Denies: frequency, hematuria. Musculoskeletal: Arthritis: Denies: left upper, left lower, right upper, ri ght lower. Neuro: Denies: change in LOC, confusion, dizziness, fo brendan weakness, gait problem, headache, lightheaded, numbness, seizure, slurr ed speech, spinning sensation, syncope, unable to speak, vision jenni nge. Psych: Reports: anxiety. Denies: agitation, change in mental status, confusion, depression, homicidal ideation, hostile, insomn ia, stress, suicidal ideation. Objective General VS/I O: Laboratory Tests 10/19/22 0347: [Embedded Image Not Available] 10/18/22 0543: [Embedded Image Not Available] Laboratory Tests 10/19 10/19 10/19 10/19 10/19 191 1615 1135 0725 0347 Chemistry Sodium (134 - 147 mEq/L) 139 Potassium (3.4 - 5.0 mEq/L) 3.6 Chloride (100 - 108 mEq/L) 106 Carbon Dioxide (21 - 33 mEq/l) 27 Anion Gap (0 - 20) 10 BUN (7 - 18 mg/dL) 10 Creatinine (0.6 - 1.3 mg/dL) 0.8 Glomerular Filtr Rate (80 - 90) 99.4 H Glucose (70 - 110 mg/dL) 85 POC Glucose (70 - 110 MG/DL) 135 H 122 H 109 96 Calcium (8.0 - 10.5 mg/dL) 7.5 L Magnesium (1.80 - 2.40 mg/dL) 1.65 L 10/18 1726 1118 0740 0543 Chemistry Sodium (134 - 147 mEq/L) 138 Potassium (3.4 - 5.0 mEq/L) 3.1 L Chloride (100 - 108 mEq/L) 104 Carbon Dioxide (21 - 33 mEq/l) 30 Anion Gap (0 - 20) 7 BUN (7 - 18 mg/dL) 12 Creatinine (0.6 - 1.3 mg/dL) 0.8 Glomerular Filtr Rate (80 - 90) 99.4 H Glucose (70 - 110 mg/dL) 97 POC Glucose (70 - 110 MG/DL) 116 H 98 135 H 104 Calcium (8.0 - 10.5 mg/dL) 7.4 L Magnesium (1.80 - 2.40 mg/dL) 1.48 L 10/18 1110 0528 0702 Chemistry POC Glucose (70 - 110 MG/DL) 104 129 H 177 H 10 5 Vitamin D 25-Hydroxy (30 - 100 ng/mL) 25.5 L 10/17 07 Chemistry Sodium (134 - 147 mEq/L) 140 Potassium (3.4 - 5.0 mEq/L) 3.2 L Chloride (100 - 108 mEq/L) 105 Carbon Dioxide (21 - 33 mEq/l) 26 Anion Gap (0 - 20) 12 BUN (7 - 18 mg/dL) 18 Creatinine (0.6 - 1.3 mg/dL) 0.9 Glomerular Filtr Rate (80 - 90) 96.0 H Glucose (70 - 110 mg/dL) 103 Calcium (8.0 - 10.5 mg/dL) 8.4 Phosphorus (2.5 - 4.9 MG/DL) 2.6 Magnesium (1.80 - 2.40 mg/dL) 1.50 L Total Bilirubin (0.0 - 1.0 mg/dL) 0.50 AST (15 - 37 IUnit/L) 23 ALT (30 - 65 IUnit/L) 24 L Total Alk Phosphatase (20 - 125 IUnit/L) 62 Total Protein (6.4 - 8.2 g/dL) 5.6 L Albumin (3.4 - 5.0 g/dL) 2.40 L Laboratory Tests 10/19 10/18 10/17 0347 0543 0760 Hematology WBC (4.5 - 11.0 x10 3/uL) 9.5 8.9 11.5 H RBC (4.00 - 5.60 x10 6/uL) 4.04 4.00 4.17 Hgb (12.5 - 16.9 g/dL) 11.7 L 11.8 L 12.0 L Hct (37.5 - 50.7 %) 35.5 L 35.4 L 35.7 L MCV (81.0 - 99.0 fL) 87.9 88.5 85.6 MCH (27.0 - 33.0 pg) 29.0 29.5 28.8 MCHC (33.0 - 37.0 g/dL) 33.0 33.3 33.6 RDW (11.5 - 14.5 %) 14.0 14.0 14.2 Plt Count (150 - 400 x10 3/uL) 313 294 285 MPV (7.0 - 9.0 fL) 9.5 H 9.8 H 9.9 H Neut % (Auto) (56.0 - 77.0 %) 64.4 62.2 71.5 Lymph % (Auto) (14.0 - 32.0 %) 15.7 15.6 10.6 L Crosby % (Auto) (4.8 - 9.0 %) 8.5 10.1 H 12.8 H Eos % (Auto) (0.3 - 3.7 %) 6.0 H 7.5 H 2.7 Baso % (Auto) (0.0 - 2.0 %) 0.7 0.7 0.4 Neut # (Auto) (2.0 - 7.6 x10 3/uL) 6.09 5.53 8. 23 H Lymph # (Auto) (1.0 - 3.8 x10 3/uL) 1.48 1.39 1 .22 Crosby # (Auto) (0.1 - 0.8 x10 3/uL) 0.80 0.90 H 1.47 H Eos # (Auto) (0.0 - 0.2 x10 3/uL) 0.57 H 0.67 H 0.31 H Baso # (Auto) (0.0 - 0.2 x10 3/uL) 0.07 0.06 0. 05 Abs Immat Gran (auto) (0.00 - 0.03 x10 3/uL) 0. 44 H 0.35 H 0.23 H Add Manual Diff NO NO NO Immature Gran % (0.0 - 2.0 %) 4.7 H 3.9 H 2.0 Nucleated RBC % (0 - 0 %) 0.0 0.0 0.0 Nucleated RBCs # (Man) (0.0 - 0.1 x10 3/uL) 0.0 0 0.00 0.00 Laboratory Tests 10/19 8287 Urines Urine Color (YEL/STRAW) YELLOW Urine Appearance (CLEAR) SL CLOUDY Urine pH (5.0 - 7.0) 5.0 Ur Specific [place] (1.005 - 1.030) 1.015 Urine Protein (NEGATIVE) 1+ H Urine Glucose (UA) (NEGATIVE) NEGATIVE Urine Ketones (NEGATIVE) NEGATIVE Urine Blood (NEGATIVE) 3+ H Urine Nitrite (NEGATIVE) NEGATIVE Urine Bilirubin (NEGATIVE) NEGATIVE Urine Urobilinogen (0.2 - 1.0 mg/dL) 0.2 Ur Leukocyte Esterase (NEGATIVE) 1+ H Urine RBC (0 - 3 RBC/HPF) >50 H Urine WBC (0 - 3 WBC/HPF) >50 H Ur Squamous Epith Cells (NONE SEEN /HPF) 0-5 Urine Bacteria (NONE SEEN /HPF) TRACE Hyaline Casts (NONE SEEN /LPF) 11-20 Urine Mucus (NONE SEEN /LPF) 1+ Urine Osmolality (300 - 1000 MOS/KG) 575 Ur Random Creatinine (mg/dL) 111.9 U Random Total Protein (mg/dL) 79 Ur Random Sodium (MEQ/L) 102 Microbiology Date/Time Procedure - Status Source Growth 10/19 346 MRSA DNA Surveillance Screen - COMP NASAL Chemistry: 10/19 1615 1135 1295 0347 Chemistry Sodium (134 - 147 mEq/L) 139 Potassium (3.4 - 5.0 mEq/L) 3.6 Chloride (100 - 108 mEq/L) 106 Carbon Dioxide (21 - 33 mEq/l) 27 BUN (7 - 18 mg/dL) 10 Creatinine (0.6 - 1.3 mg/dL) 0.8 Glucose (70 - 110 mg/dL) 85 POC Glucose (70 - 110 MG/DL) 135 H 122 H 109 96 Calcium (8.0 - 10.5 mg/dL) 7.5 L Magnesium (1.80 - 2.40 mg/dL) 1.65 L Microbiology: 10/19 346 NASAL: MRSA DNA Surveillance Screen - COMP Vital Signs: Date Time Temp Pulse Resp B/P B/P Pulse O2 O2 Flow FiO2 Mean Ox Delivery Rate 10/19 1918 37.2 78 16 114/70 84.7 97 Room air 10/20 1615 37.2 80 14 105/68 80.3 97 10/20 1135 37.0 85 17 142/80 100.6 98 Room air 10/19 726 37.0 83 14 127/67 87.0 95 Room air 10/19 0414 37.2 68 16 124/68 87.0 97 Room air 10/18 2307 37.1 66 16 137/76 96.5 97 Room air 10/19 0700 10/18 2300 10/18 1500 Intake Total 480 240 Output Total 700 875 750 Balance -220 635 -750 Intake, Oral 480 240 Number 0 1 1 Bowel Movements Output, Urine 700 875 750 Current Medications Sig/Mark Start time Last Medication Dose Route Stop Time Status Admin Cholecalciferol 1,000 INTL.UNITS DAILY 10/18 09 00 CKD 10/19 PO 11/17 0859 0914 Tamsulosin HCl 0.4 MG PC DIN 10/16 1800 AC 10/05 5 PO 11/15 1759 1713 Acetaminophen 650 MG Q4H PRN PRN 10/16 1345 AC PO 11/15 1344 Docusate Sodium 100 MG BID PRN PRN 10/16 1345 A C PO 11/15 1344 Haloperidol 10 MG BID 10/16 1345 AC 10/19 PO 11/15 1330 2237 Hydralazine HCl 10 MG Q6H PRN PRN 10/16 1345 AC IV 11/15 1344 Hydrocodone Bitart/ 1 TAB Q6H PRN PRN 10/16 13 45 AC Acetaminophen PO 10/21 1344 Ondansetron HCl 4 MG Q4H PRN PRN 10/16 1345 AC IV 11/15 1344 Benztropine Mesylate 1 MG DAILY 10/16 1330 AC 0 10/19 PO 11/15 1329 0914 Dextrose/Water 125 ML ASDIR PRN 10/16 1130 CKD IV 11/15 1129 Dextrose/Water 250 ML ASDIR PRN 10/16 1130 CKD IV 11/15 1129 Glucagon 1 MG ASDIR PRN 10/16 1130 AC IM 11/15 1129 Insulin Human Lispro 0 AC HS 10/16 1130 AC SUBQ 11/15 1129 Vital Signs Date Temp Pulse Resp B/P B/P Mean Pulse Ox FiO2 10/18-10/19 37.0-37.2 66-85 - 105-142/67-80 80.3-100.6 95-98 Last Documented: Result Date Time Pulse Ox 97 10/19 1918 B/P 114/70 07/15 1919 B/P Mean 84.7 10/19 1918 O2 Delivery Room air 10/19 1918 Temp 37.2 10/19 1918 Pulse 78 10/19 1918 Resp 16 10/19 1918 24 hour I O ending at 0700: 10/19 0700 10/18 1900 Intake Total 720 Output Total 1100 1225 Balance -380 -1225 Intake, Oral 720 Number 0 2 Bowel Movements Output, Urine 1100 1225 PATIENT WEIGHT: Weight (lb): Weight (oz): Weight (kg): 68.000 Diagnosis, Assessment Plan Hospital course to date: General appearance: alert, awake Head/Eyes: atraumatic, clear cornea, EOMI, normo cephalic, normal conjunctiva/ sclera, normal eyelids/periorb, PERRLA ENT: normal dentition, normal ear left, normal e ar right, normal nose, normal pharynx, normal sinus Cardiovascular: regular rate rhythm Respiratory: decreased breath sounds, clear to a uscultation, no distress, no tenderness Abdomen/GI: active bowel sounds, soft Abdomen quadrants: LLQ normal bowel sounds, LLQ tenderness, LUQ nor mal bowel sounds, RLQ normal bowel sounds, RLQ tenderness, RUQ normal bowel s ounds Genitourinary: johns Extremities: moves all, no edema-all extremities , normal capillary refill, normal range of motion, normal sensory, normal m otor function Neuro/SHOULDER SAWYER: 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 Rupture of ureter Free Text DxA P Notes Free text DxA P notes: Assessment: 62-year-old male with last medical history of, B PH, transferred from [place] for urology evaluation and treatment sec ondary to possible ruptured ureter. As per patient his a bdomen was distended for at least for 2 days and he was having difficulty urinating. Patient present ed to outside facilityImaging revealed severe bilateral hydronephrosis with ev idence of active urine extravasation and large amou nt of urine in the bladder pushing all the way up to the abdomen. As per patient' s daughter about 3 L of fluid was removed within 10 minutes of Johns insertion. Patient reports he h as been experiencing urinary hesitancy for the past 2 to 3 years. 1. Abdominal distention, severe bilateral hydron ephrosis, large amount of urinary retention -Status post Johns insertion large amount of ur ine was obtained 2. Acute kidney injury 3. Hypokalemia/hypocalcemia, hyperchloremia 4. Metabolic acidosis 5. Possible BPH 6. Severe bilateral hydronephrosis 7. Hypertension 8. Schizophrenia Plan of care: Admit patient for further evaluation and treatme nt Urology consultation in place Keep Johns to bedside drainage I's and O's Monitor renal function Nephrology consultation Replace electrolytes Start tamsulosin Bicarb drip started Repeat CT of the abdomen and pelvis if needed Repeat labs Further recommendation based on patient's clinic al course 10/17/2022 Vital signs within normal limits Hypokalemia 3.2, hypomagnesemia 1.50 Renal function is improved, discontinue bicarb d rip, continue electrolyte control-replace as needed per nephro Urology is following Continue tamsulosin BP control-on hydralazine as needed, pain contro l Continue telemetry monitoring, intake and output , fall precaution Follow-up labs, continue medications and support nya care 10/18/2022 BP is controlled Hypocalcemia 7.4, hypomagnesemia 1.5, Hypokalemi a 3.1 MRSA surveillance screen pending results Uro and Nephro are following Started on cholecalciferol p.o., still on tamsul osin Electrolyte control- magnesium and potassium rep laced Fall precaution Follow-up labs, continue medications and support nya care 10/19/2022 Vital signs within normal limits, POC glucose is controlled Hypocalcemia 7.5, hypomagnesemia 1.65 MRSA surveillance screen is negative Continue electrolyte control, replace as needed Patient is able to tolerate p.o. intake Renal function is improved, discontinue bicarb drip today, continue BP control on IV hydralazine per nephro Continue tamsulosin p.o. Pain control, glycemic control, fall precaution Follow-up labs, continue medications and present care Electronically Signed by Sofia Cheng NP on 0 10/21/22 at 0229 Electronically Signed by Salinas Alba MD o n 10/21/22 at 1514 RPT #:[id number] END OF REPORT 2022-10-19 20:14:00-00:00 [facility] ([facility]) Nephrology Progress Note REPORT#:[id number] REPORT STATUS: Signed DATE:10/19/22 TIME: 2013 PATIENT: MATHEW CASTILLO UNIT #: [id number] ROOM[place]ED: [facility] [place] : 59 AGE: 62 SEX: M ATTEND: Salinas Alba MD ADM AUTHOR: Toby Koehler MD * ALL edits or amendments must be made on the [employer]/computer document * Subjective Chief complaint: Concern for ruptured ureter HPI: The patient seen and examined. Resting i n bed, denies any N/V/D, tolerating PO intake w/o any issue. Johns to gravity, good UOP . Objective General VS/I O: Vital Signs: Date Time Temp Pulse Resp B/P B/P Pulse O2 O2 F low FiO2 Mean Ox Delivery Rate 10/19 1919 37.2 78 16 114/70 84.7 97 Room air 10/19 1616 37.2 80 14 105/68 80.3 97 10/19 1136 37.0 85 17 142/80 100.6 98 Room air 10/19 0727 37.0 83 14 127/67 87.0 95 Room air 10/19 0414 37.2 68 16 124/68 87.0 97 Room air 10/18 2307 37.1 66 16 137/76 96.5 97 Room air 24 hour I O ending at 0700: 10/19 0700 10/18 1900 Intake Total 720 Output Total 1100 1225 Balance -380 -1225 Intake, Oral 720 Number 0 2 Bowel Movements Output, Urine 1100 1225 PATIENT WEIGHT: Weight (lb): Weight (oz): Weight (kg): 68.000 Medications Active Meds + DC'd Last 24 Hrs Cholecalciferol (VITAMIN D) 1,000 INTL.UNITS NIDHI LY PO (CKD) Tamsulosin HCl (Flomax 0.4 mg) 0.4 MG PC DIN PO Acetaminophen (TYLENOL) 650 MG Q4H PRN PRN PO Docusate Sodium (COLACE) 100 MG BID PRN PRN PO Haloperidol (HALDOL) 10 MG BID PO Hydralazine HCl (APRESOLINE) 10 MG Q6H PRN PRN I V Hydrocodone Bitart/Acetaminophen (NORCO 5/325) 1 TAB Q6H PRN PRN PO Ondansetron HCl (ZOFRAN) 4 MG Q4H PRN PRN IV Benztropine Mesylate (COGENTIN) 1 MG DAILY PO Dextrose/Water (DEXTROSE 10% IN WATER) 125 ML DIR PRN IV (CKD) Dextrose/Water (DEXTROSE 10% IN WATER) 250 ML DIR PRN IV (CKD) Glucagon (GLUCAGON) 1 MG ASDIR PRN IM Insulin Human Lispro (HUMALOG) 0 AC HS SUBQ Physical Exam General appearance: alert, awake, oriented Head/eyes: atraumatic, clear cornea, normal conj unctiva/sclera, normocephalic ENT: normal nose Neck: supple/no meningismus Cardiovascular: normal heart sounds Respiratory: decreased breath sounds, aerating w ell, no distress Abdomen: distended Genitourinary: urinary catheter, urine Extremities: no edema Results Findings/Data: Laboratory Tests 10/19 10/19 10/19 10/19 10/18 1615 1135 0725 0347 2021 Chemistry Sodium (134 - 147 mEq/L) 139 Potassium (3.4 - 5.0 mEq/L) 3.6 Chloride (100 - 108 mEq/L) 106 Carbon Dioxide (21 - 33 mEq/l) 27 Anion Gap (0 - 20) 10 BUN (7 - 18 mg/dL) 10 Creatinine (0.6 - 1.3 mg/dL) 0.8 Glomerular Filtr Rate (80 - 90) 99.4 H Glucose (70 - 110 mg/dL) 85 POC Glucose (70 - 110 MG/DL) 122 H 109 96 116 H Calcium (8.0 - 10.5 mg/dL) 7.5 L Magnesium (1.80 - 2.40 mg/dL) 1.65 L Laboratory Tests 10/19 0347 Hematology WBC (4.5 - 11.0 x10 3/uL) 9.5 RBC (4.00 - 5.60 x10 6/uL) 4.04 Hgb (12.5 - 16.9 g/dL) 11.7 L Hct (37.5 - 50.7 %) 35.5 L MCV (81.0 - 99.0 fL) 87.9 MCH (27.0 - 33.0 pg) 29.0 MCHC (33.0 - 37.0 g/dL) 33.0 RDW (11.5 - 14.5 %) 14.0 Plt Count (150 - 400 x10 3/uL) 313 MPV (7.0 - 9.0 fL) 9.5 H Neut % (Auto) (56.0 - 77.0 %) 64.4 Lymph % (Auto) (14.0 - 32.0 %) 15.7 Crosby % (Auto) (4.8 - 9.0 %) 8.5 Eos % (Auto) (0.3 - 3.7 %) 6.0 H Baso % (Auto) (0.0 - 2.0 %) 0.7 Neut # (Auto) (2.0 - 7.6 x10 3/uL) 6.09 Lymph # (Auto) (1.0 - 3.8 x10 3/uL) 1.48 Crosby # (Auto) (0.1 - 0.8 x10 3/uL) 0.80 Eos # (Auto) (0.0 - 0.2 x10 3/uL) 0.57 H Baso # (Auto) (0.0 - 0.2 x10 3/uL) 0.07 Abs Immat Gran (auto) (0.00 - 0.03 x10 3/uL) 0. 44 H Add Manual Diff NO Immature Gran % (0.0 - 2.0 %) 4.7 H Nucleated RBC % (0 - 0 %) 0.0 Nucleated RBCs # (Man) (0.0 - 0.1 x10 3/uL) 0.0 0 Laboratory Tests 10/19 0347 Urines Urine Color (YEL/STRAW) YELLOW Urine Appearance (CLEAR) SL CLOUDY Urine pH (5.0 - 7.0) 5.0 Ur Specific [place] (1.005 - 1.030) 1.015 Urine Protein (NEGATIVE) 1+ H Urine Glucose (UA) (NEGATIVE) NEGATIVE Urine Ketones (NEGATIVE) NEGATIVE Urine Blood (NEGATIVE) 3+ H Urine Nitrite (NEGATIVE) NEGATIVE Urine Bilirubin (NEGATIVE) NEGATIVE Urine Urobilinogen (0.2 - 1.0 mg/dL) 0.2 Ur Leukocyte Esterase (NEGATIVE) 1+ H Urine RBC (0 - 3 RBC/HPF) >50 H Urine WBC (0 - 3 WBC/HPF) >50 H Ur Squamous Epith Cells (NONE SEEN /HPF) 0-5 Urine Bacteria (NONE SEEN /HPF) TRACE Hyaline Casts (NONE SEEN /LPF) 11-20 Urine Mucus (NONE SEEN /LPF) 1+ Urine Osmolality (300 - 1000 MOS/KG) 575 Ur Random Creatinine (mg/dL) 111.9 U Random Total Protein (mg/dL) 79 Ur Random Sodium (MEQ/L) 102 Microbiology Date/Time Procedure - Status Source Growth 10/19 0347 MRSA DNA Surveillance Screen - COMP NASAL Diagnosis, Assessment Plan Free Text A P: Assessment and Plan: CHANDRA (Resolved) -Renal function improved and wnl, johns to gravity, on bicarb gtt, will d/c now. -2/2 post-obstrucitve uropathy, monitor for post -obstructive diuresis. -UA, urine lytes requested -Per Urology note: Reportedly the patient had 3L of urine in his bladder. CT abdomen from [place] showed that the patien t has a very large distended bladder with hydroureteronep hrosis and there does appear to be maybe a forniceal rupture or some back pressure into the kidneys c ausing some inflammation and possibly a small amount of u rine to come out through the forniceal areas that I do not see an actual ruptured ureter. The patien t's creatinine has improved. His symptoms have totally re solved with catheter placement. This can be managed conservatively. The patient will follow up as an outpatient. -Avoid nephrotoxicity monitor renal function and UOP Hypokalemia/Hypocalcemia/Hypomagnesemia -K+ and Mg replaced. Vitamin D deficiency, vitam in D supplement. -Monitor for post-obstructive diuresis and elect rolyte imbalance Urinary Retention/BPH -Johns to gravity, Urology following, on Tamsulo sin -Per Urology note: Reportedly the patient had 3L of urine in his bladder. CT abdomen from [place] showed that the patien t has a very large distended bladder with hydroureteronep hrosis and there does appear to be maybe a forniceal rupture or some back pressure into the kidneys c ausing some inflammation and possibly a small amount of u rine to come out through the forniceal areas that I do not see an actual ruptured ureter. The patien t's creatinine has improved. His symptoms have totally re solved with catheter placement. This can be managed conservatively. The patient will follow up as an outpatient. HTN -BP acceptable, monitor, on PRN IV hydralazine Schizophrenia -Home medications resumed at 2148 RPT #:[id number] END OF REPORT 2022-10-18 20:26:00-00:[address] [facility]) Internal Medicine Prog. Note REPORT#:[id number] REPORT STATUS: Signed DATE:10/18/22 TIME: 2025 PATIENT: MATHEW CASTILLO UNIT #: [id number] ROOM/BED: [place] [address] : 59 AGE: 62 SEX: M ATTEND: Salinas Alba MD ADM AUTHOR: Sofia Cheng NP * ALL edits or amendments must be made on the [employer]/computer document * Subjective Chief complaint: Abdominal distention, hydronephrosis HPI: 62-year-old male with last medical history of, B PH, transferred from [place] for urology evaluation and treatment sec ondary to possible ruptured ureter. As per patient his a bdomen was distended for at least for 2 days and he was having difficulty urinating. Patient present ed to outside facilityImaging revealed severe bilateral hydronephrosis with ev idence of active urine extravasation and large amou nt of urine in the bladder pushing all the way up to the abdomen. As per patient' s daughter about 3 L of fluid was removed within 10 minutes of Johns insertion. Patient reports he h as been experiencing urinary hesitancy for the past 2 to 3 years. Den ies seeing a urologist. Patient denies fever, chills, dysuria, robert turia, or other associated symptoms. Patient denies shortness of breath, chest pain, nausea, vomitin g, diarrhea, constipation. Admission vital signs blood pressure 146/78, pul se 92, respiration 18, temperature 37.1, O2 sat 96% on room air. Abnormal labs: Hemoglobin 10.9, hematocrit 31.7, potass ium 2.8, chloride 114, CO2 18, BUN 41, creatinine 2.1, glucose 643Calcium 4.9. Review of Systems Additional notes: Constitutional: Denies: chills, fever. ENT: Denies: earache, nasal congestion, sore throat. Respiratory: Denies: hemoptysis, parox no cturnal dyspnea, pleurisy, pleuritic pain, pneumonia , SOB, wheezing. Cardiovascular: Denies: chest pain, palpitations. GI: Reports: abdominal pain. Denies: nausea, vomitin g. : Reports: flank pain, urinary retention. Denies: frequency, hematuria. Musculoskeletal: Arthritis: Denies: left upper, left lower, right upper, ri ght lower. Neuro: Denies: change in LOC, confusion, dizziness, foc al weakness, gait problem, headache, lightheaded, numbness, seizure, slurre d speech, spinning sensation, syncope, unable to speak, vision change. Psych: Reports: anxiety. Denies: agitation, change in m ental status, confusion, depression, homicidal ideation, hostile, insomni a, stress, suicidal ideation. Objective General VS/I O: Vital Signs Date Temp Pulse Resp B/P B/P Mean Pulse Ox FiO2 10/18 37.1-37.4 69-88 14- 120-133/67-81 85.0- 98.2 96-99 Last Documented: Result Date Time Pulse Ox 97 10/18 185 B/P 132/81 10/18 1855 B/P Mean 98.2 10/18 1854 O2 Delivery Room air 10/18 1854 Temp 37.1 10/18 185 Pulse 75 10/18 1855 Resp 16 10/18 185 24 hour I O ending at 0700: 10/18 0700 10/17 1900 Intake Total 480 Output Total 2000 Balance 480 -2000 Intake, Oral 480 Number 2 Bowel Movements Number Voids 2 Output, Urine 2000 PATIENT WEIGHT: Weight (lb): Weight (oz): Weight (kg): 68.000 Medications: Active Meds + DC'd Last 24 Hrs Magnesium Sulfate (MAGNESIUM SULFATE 4GM/SWFI 10 0ML) 100 ML ONCE ONE IV (DC) Potassium Chloride (POTASSIUM CHLORIDE 20MEQ TAB .ER) 40 MEQ ONCE ONE PO (DC) Cholecalciferol (VITAMIN D) 1,000 INTL.UNITS NIDHI LY PO (CKD) Tamsulosin HCl (Flomax 0.4 mg) 0.4 MG PC DIN PO Acetaminophen (TYLENOL) 650 MG Q4H PRN PRN PO Docusate Sodium (COLACE) 100 MG BID PRN PRN PO Haloperidol (HALDOL) 10 MG BID PO Hydralazine HCl (APRESOLINE) 10 MG Q6H PRN PRN I V Hydrocodone Bitart/Acetaminophen (NORCO 5/325) 1 TAB Q6H PRN PRN PO Ondansetron HCl (ZOFRAN) 4 MG Q4H PRN PRN IV Benztropine Mesylate (COGENTIN) 1 MG DAILY PO Dextrose/Water (DEXTROSE 10% IN WATER) 125 ML DIR PRN IV (CKD) Dextrose/Water (DEXTROSE 10% IN WATER) 250 ML DIR PRN IV (CKD) Glucagon (GLUCAGON) 1 MG ASDIR PRN IM Insulin Human Lispro (HUMALOG) 0 AC HS SUBQ Results Findings/Data: Laboratory Tests 10/18/22 0543: [Embedded Image Not Available] Laboratory Tests 10/18 10/18 10/18 10/18 10/18 1726 1118 0740 0543 0540 Chemistry Sodium (134 - 147 mEq/L) 138 Potassium (3.4 - 5.0 mEq/L) 3.1 L Chloride (100 - 108 mEq/L) 104 Carbon Dioxide (21 - 33 mEq/l) 30 Anion Gap (0 - 20) 7 BUN (7 - 18 mg/dL) 12 Creatinine (0.6 - 1.3 mg/dL) 0.8 Glomerular Filtr Rate (80 - 90) 99.4 H Glucose (70 - 110 mg/dL) 97 POC Glucose (70 - 110 MG/DL) 98 135 H 104 104 Calcium (8.0 - 10.5 mg/dL) 7.4 L Magnesium (1.80 - 2.40 mg/dL) 1.48 L Laboratory Tests 10/18 0543 Hematology WBC (4.5 - 11.0 x10 3/uL) 8.9 RBC (4.00 - 5.60 x10 6/uL) 4.00 Hgb (12.5 - 16.9 g/dL) 11.8 L Hct (37.5 - 50.7 %) 35.4 L MCV (81.0 - 99.0 fL) 88.5 MCH (27.0 - 33.0 pg) 29.5 MCHC (33.0 - 37.0 g/dL) 33.3 RDW (11.5 - 14.5 %) 14.0 Plt Count (150 - 400 x10 3/uL) 294 MPV (7.0 - 9.0 fL) 9.8 H Neut % (Auto) (56.0 - 77.0 %) 62.2 Lymph % (Auto) (14.0 - 32.0 %) 15.6 Crosby % (Auto) (4.8 - 9.0 %) 10.1 H Eos % (Auto) (0.3 - 3.7 %) 7.5 H Baso % (Auto) (0.0 - 2.0 %) 0.7 Neut # (Auto) (2.0 - 7.6 x10 3/uL) 5.53 Lymph # (Auto) (1.0 - 3.8 x10 3/uL) 1.39 Crosby # (Auto) (0.1 - 0.8 x10 3/uL) 0.90 H Eos # (Auto) (0.0 - 0.2 x10 3/uL) 0.67 H Baso # (Auto) (0.0 - 0.2 x10 3/uL) 0.06 Abs Immat Gran (auto) (0.00 - 0.03 x10 3/uL) 0. 35 H Add Manual Diff NO Immature Gran % (0.0 - 2.0 %) 3.9 H Nucleated RBC % (0 - 0 %) 0.0 Nucleated RBCs # (Man) (0.0 - 0.1 x10 3/uL) 0.0 0 Diagnosis, Assessment Plan Hospital course to date: General appearance: alert, awake Head/Eyes: atraumatic, clear cornea, EOMI, normo cephalic, normal conjunctiva/ sclera, normal eyelids/periorb, PERRLA ENT: normal dentition, normal ear left, normal e ar right, normal nose, normal pharynx, normal sinus Cardiovascular: regular rate rhythm Respiratory: decreased breath sounds, clear to a uscultation, no distress, no tenderness Abdomen/GI: active bowel sounds, soft Abdomen quadrants: LLQ normal bowel sounds, LLQ tenderness, LUQ nor mal bowel sounds, RLQ normal bowel sounds, RLQ tenderness, RUQ normal bowel s ounds Genitourinary: johns Extremities: moves all, no edema-all extremities , normal capillary refill, normal range of motion, normal sensory, normal m otor function Neuro/SHOULDER SAWYER: 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 Rupture of ureter Free Text DxA P Notes Free text DxA P notes: Assessment: 62-year-old male with last medical history of, B PH, transferred from [place] for urology evaluation and treatment sec ondary to possible ruptured ureter. As per patient his a bdomen was distended for at least for 2 days and he was having difficulty urinating. Patient present ed to outside facilityImaging revealed severe bilateral hydronephrosis with ev idence of active urine extravasation and large amou nt of urine in the bladder pushing all the way up to the abdomen. As per patient' s daughter about 3 L of fluid was removed within 10 minutes of Johns insertion. Patient reports he h as been experiencing urinary hesitancy for the past 2 to 3 years. 1. Abdominal distention, severe bilateral hydron ephrosis, large amount of urinary retention -Status post Johns insertion large amount of ur ine was obtained 2. Acute kidney injury 3. Hypokalemia/hypocalcemia, hyperchloremia 4. Metabolic acidosis 5. Possible BPH 6. Severe bilateral hydronephrosis 7. Hypertension 8. Schizophrenia Plan of care: Admit patient for further evaluation and treatme nt Urology consultation in place Keep Johns to bedside drainage I's and O's Monitor renal function Nephrology consultation Replace electrolytes Start tamsulosin Bicarb drip started Repeat CT of the abdomen and pelvis if needed Repeat labs Further recommendation based on patient's clinic al course 10/17/2022 Vital signs within normal limits Hypokalemia 3.2, hypomagnesemia 1.50 Renal function is improved, discontinue bicarb d rip, continue electrolyte control-replace as needed per nephro Urology is following Continue tamsulosin BP control-on hydralazine as needed, pain contro l Continue telemetry monitoring, intake and output , fall precaution Follow-up labs, continue medications and support nya care 10/18/2022 BP is controlled Hypocalcemia 7.4, hypomagnesemia 1.5, Hypokalemi a 3.1 MRSA surveillance screen pending results Uro and Nephro are following Started on cholecalciferol p.o., still on tamsul osin Electrolyte control- magnesium and potassium rep laced Fall precaution Follow-up labs, continue medications and support nya care Electronically Signed by Sofia Cheng QA TEST LEAD on 0 10/20/22 at 2012 Electronically Signed by Salinas Alba MD o n 10/21/22 at 1301 RPT #:[id number] END OF REPORT 2022-10-18 17:48:00-00:00 [facility] ([facility]) Nephrology Progress Note REPORT#:[id number] REPORT STATUS: Signed DATE:10/18/22 TIME: 1747 PATIENT: MATHEW CASTILLO UNIT #: [id number] ROOM/BED: [place] [address] : 59 AGE: 62 SEX: M ATTEND: Salinas Alba MD ADM AUTHOR: Carmen Kemp * ALL edits or amendments must be made on the [employer] document * See Addendum Carmen Kemp 10/18/22 174: Subjective Chief complaint: Concern for ruptured ureter HPI: The patient seen and examined. Resting i n bed, denies any N/V/D, tolerating PO intake w/o any issue. Johns to gravity, good UOP . Review of Systems ROS comments: A 12 point ROS is obtained and is negative unles s specified in HPI Objective General VS/I O: Vital Signs: Date Time Temp Pulse Resp B/P B/P Pulse O2 O2 Flow FiO2 Mean Ox Delivery Rate 10/18 1727 37.1 69 17 124/74 90.4 96 Room air 10/18 1119 37.2 88 14 133/70 90.7 97 Room air 10/18 0744 37.1 75 14 120/67 85.0 97 Room air 10/18 0406 37.3 72 16 120/69 85.6 99 Room air 10/18 0017 37.4 74 16 122/73 89.0 96 Room air 10/17 2013 37.5 83 16 119/70 86.3 94 Room air 24 hour I O ending at 0700: 10/18 0700 10/17 1900 Intake Total 480 Output Total 2000 Balance 480 -2000 Intake, Oral 480 Number 2 Bowel Movements Number Voids 2 Output, Urine 2000 PATIENT WEIGHT: Weight (lb): Weight (oz): Weight (kg): 68.000 Medications Active Meds + DC'd Last 24 Hrs Magnesium Sulfate (MAGNESIUM SULFATE 4GM/SWFI 10 0ML) 100 ML ONCE ONE IV (DC) Potassium Chloride (POTASSIUM CHLORIDE 20MEQ TAB .ER) 40 MEQ ONCE ONE PO (DC) Cholecalciferol (VITAMIN D) 1,000 INTL.UNITS NIDHI LY PO (CKD) Tamsulosin HCl (Flomax 0.4 mg) 0.4 MG PC DIN PO Acetaminophen (TYLENOL) 650 MG Q4H PRN PRN PO Docusate Sodium (COLACE) 100 MG BID PRN PRN PO Haloperidol (HALDOL) 10 MG BID PO Hydralazine HCl (APRESOLINE) 10 MG Q6H PRN PRN IV Hydrocodone Bitart/Acetaminophen (NORCO 5/325) 1 TAB Q6H PRN PRN PO Ondansetron HCl (ZOFRAN) 4 MG Q4H PRN PRN IV Sodium Bicarbonate (SODIUM BICARBONATE) 100 ML Q 11H IV (DC) Sodium Chloride (0.45% Sodium Chloride) 1,000 M L Benztropine Mesylate (COGENTIN) 1 MG DAILY PO Dextrose/Water (DEXTROSE 10% IN WATER) 125 ML DIR PRN IV (CKD) Dextrose/Water (DEXTROSE 10% IN WATER) 250 ML DIR PRN IV (CKD) Glucagon (GLUCAGON) 1 MG ASDIR PRN IM Insulin Human Lispro (HUMALOG) 0 AC HS SUBQ Dietitian nutrition assessment The data set between the solid lines has been im ported from the dietitian's assessment. BMI Calculated: 22.1 Nutrition related diagnosis: Nutrition diagnosis details: Nutrition problem: Nutrition etiology: Nutrition signs and symptoms: Nutrition prescription: Dietitian name: Assessment completed: Physical Exam General appearance: alert, awake, oriented, no a cute distress Head/eyes: atraumatic, clear cornea, normal conj unctiva/sclera, normocephalic ENT: normal nose Neck: supple/no meningismus Cardiovascular: normal heart sounds Respiratory: decreased breath sounds, aerating w ell, no distress Abdomen: distended Genitourinary: urinary catheter, urine Extremities: no edema Results Findings/Data: Laboratory Tests 10/18 10/18 10/18 10/18 10/17 1118 0740 0543 0540 2012 Chemistry Sodium (134 - 147 mEq/L) 138 Potassium (3.4 - 5.0 mEq/L) 3.1 L Chloride (100 - 108 mEq/L) 104 Carbon Dioxide (21 - 33 mEq/l) 30 Anion Gap (0 - 20) 7 BUN (7 - 18 mg/dL) 12 Creatinine (0.6 - 1.3 mg/dL) 0.8 Glomerular Filtr Rate (80 - 90) 99.4 H Glucose (70 - 110 mg/dL) 97 POC Glucose (70 - 110 MG/DL) 135 H 104 104 129 H Calcium (8.0 - 10.5 mg/dL) 7.4 L Magnesium (1.80 - 2.40 mg/dL) 1.48 L Laboratory Tests 10/18 0543 Hematology WBC (4.5 - 11.0 x10 3/uL) 8.9 RBC (4.00 - 5.60 x10 6/uL) 4.00 Hgb (12.5 - 16.9 g/dL) 11.8 L Hct (37.5 - 50.7 %) 35.4 L MCV (81.0 - 99.0 fL) 88.5 MCH (27.0 - 33.0 pg) 29.5 MCHC (33.0 - 37.0 g/dL) 33.3 RDW (11.5 - 14.5 %) 14.0 Plt Count (150 - 400 x10 3/uL) 294 MPV (7.0 - 9.0 fL) 9.8 H Neut % (Auto) (56.0 - 77.0 %) 62.2 Lymph % (Auto) (14.0 - 32.0 %) 15.6 Crosby % (Auto) (4.8 - 9.0 %) 10.1 H Eos % (Auto) (0.3 - 3.7 %) 7.5 H Baso % (Auto) (0.0 - 2.0 %) 0.7 Neut # (Auto) (2.0 - 7.6 x10 3/uL) 5.53 Lymph # (Auto) (1.0 - 3.8 x10 3/uL) 1.39 Crosby # (Auto) (0.1 - 0.8 x10 3/uL) 0.90 H Eos # (Auto) (0.0 - 0.2 x10 3/uL) 0.67 H Baso # (Auto) (0.0 - 0.2 x10 3/uL) 0.06 Abs Immat Gran (auto) (0.00 - 0.03 x10 3/uL) 0. 35 H Add Manual Diff NO Immature Gran % (0.0 - 2.0 %) 3.9 H Nucleated RBC % (0 - 0 %) 0.0 Nucleated RBCs # (Man) (0.0 - 0.1 x10 3/uL) 0.0 0 Diagnosis, Assessment Plan Free Text A P: Assessment and Plan: CHANDRA (Resolved) -Renal function improved and wnl, johns to gravity, on bicarb gtt, will d/c now. -2/2 post-obstrucitve uropathy, monitor for post -obstructive diuresis. -UA, urine lytes requested -Per Urology note: Reportedly the patient had 3L of urine in his bladder. CT abdomen from [place] showed that the patien t has a very large distended bladder with hydroureteronep hrosis and there does appear to be maybe a forniceal rupture or some back pressure into the kidneys c ausing some inflammation and possibly a small amount of u rine to come out through the forniceal areas that I do not see an actual ruptured ureter. The patien t's creatinine has improved. His symptoms have totally re solved with catheter placement. This can be managed conservatively. The patient will follow up as an outpatient. -Avoid nephrotoxicity monitor renal function and UOP Hypokalemia/Hypocalcemia/Hypomagnesemia -K+ and Mg replaced. Vitamin D deficiency, vitam in D supplement. -Monitor for post-obstructive diuresis and elect rolyte imbalance Urinary Retention/BPH -Johns to gravity, Urology following, on Tamsulo sin -Per Urology note: Reportedly the patient had 3L of urine in his bladder. CT abdomen from [place] showed that the patien t has a very large distended bladder with hydroureteronep hrosis and there does appear to be maybe a forniceal rupture or some back pressure into the kidneys c ausing some inflammation and possibly a small amount of u rine to come out through the forniceal areas that I do not see an actual ruptured ureter. The patien t's creatinine has improved. His symptoms have totally re solved with catheter placement. This can be managed conservatively. The patient will follow up as an outpatient. HTN -BP acceptable, monitor, on PRN IV hydralazine Schizophrenia -Home medications resumed Discussed the plan with the patient, patient's dennys del valle, and . Toby Koehler 10/18/221930: Attestations Physician Attestation Reviewed findings plan: Patient examined Renal function improved and wnl, johns to gravity, off bicarb drip -2/2 post-obstrucitve uropathy, monitor for post -obstructive diuresis, check lytes in am. urology evaluation noted. Agree wit h above A/P at 1750 at 1931 Addendum 1: 10/18/221936 by Toby Koehler and magnesium supplementation. at 1937 RPT #:[id number] END OF REPORT 2022-10-17 22:43:00-00:00 [facility] REPORT#:[id number] REPORT STATUS: Signed DATE:10/17/22 TIME: 2242 PATIENT: MATHEW CASTILLO UNIT #: [id number] ROOM/BED: [place] [address] : [birth year] AGE: 62 SEX: M ATTEND: Salinas Alba MD ADM AUTHOR: Sofia Cheng NP * ALL edits or amendments must be made on the [employer]/computer document * Subjective Chief complaint: Abdominal distention, hydronephrosis HPI: 62-year-old male with last medical history of, B PH, transferred from [place] for urology evaluation and treatment sec ondary to possible ruptured ureter. As per patient his a bdomen was distended for at least for 2 days and he was having difficulty urinating. Patient present ed to outside facilityImaging revealed severe bilateral hydronephrosis with ev idence of active urine extravasation and large amou nt of urine in the bladder pushing all the way up to the abdomen. As per patient' s daughter about 3 L of fluid was removed within 10 minutes of Johns insertion. Patient reports he h as been experiencing urinary hesitancy for the past 2 to 3 years. Den ies seeing a urologist. Patient denies fever, chills, dysuria, robert turia, or other associated symptoms. Patient denies shortness of breath, chest pain, nausea, vomitin g, diarrhea, constipation. Admission vital signs blood pressure 146/78, pul se 92, respiration 18, temperature 37.1, O2 sat 96% on room air. Abnormal labs: Hemoglobin 10.9, hematocrit 31.7, potass ium 2.8, chloride 114, CO2 18, BUN 41, creatinine 2.1, glucose 643Calcium 4.9. Review of Systems Additional notes: Constitutional: Denies: chills, fever. ENT: Denies: earache, nasal congestion, sore throat. Respiratory: Denies: hemoptysis, parox no cturnal dyspnea, pleurisy, pleuritic pain, pneumonia , SOB, wheezing. Cardiovascular: Denies: chest pain, palpitations. GI: Reports: abdominal pain. Denies: nausea, vomitin g. : Reports: flank pain, urinary retention. Denies: frequency, hematuria. Musculoskeletal: Arthritis: Denies: left upper, left lower, right upper, ri ght lower. Neuro: Denies: change in LOC, confusion, dizziness, foc al weakness, gait problem, headache, lightheaded, numbness, seizure, slurre d speech, spinning sensation, syncope, unable to speak, vision change. Psych: Reports: anxiety. Denies: agitation, change in m ental status, confusion, depression, homicidal ideation, hostile, insomni a, stress, suicidal ideation. Objective General VS/I O: Vital Signs Date Temp Pulse Resp B/P B/P Mean Pulse Ox FiO2 10/16-10/17 37.2-37.5 83-100 16-18 119-133/70-79 86.3-96.8 93-95 Last Documented: Result Date Time Pulse Ox 94 10/17 2013 B/P 119/70 10/17 2013 B/P Mean 86.3 10/17 2013 O2 Delivery Room air 10/17 2013 Temp 37.5 10/17 2013 Pulse 83 10/17 2013 Resp 16 10/17 2013 24 hour I O ending at 0700: 10/17 0700 10/16 1900 Intake Total 800 Output Total 1200 3200 Balance -400 -3200 Intake, Oral 800 Number 3 1 Bowel Movements Output, Urine 1200 3200 PATIENT WEIGHT: Weight (lb): Weight (oz): Weight (kg): 68.000 Medications: Active Meds + DC'd Last 24 Hrs Cholecalciferol (VITAMIN D) 1,000 INTL.UNITS NIDHI LY PO (CKD) Magnesium Sulfate (MAGNESIUM SULFATE 2GM/SWFI 50 ML) 50 ML ONCE ONE IV ( DC) Potassium Chloride (POTASSIUM CHLORIDE 20MEQ TAB .ER) 40 MEQ ONCE ONE PO (DC) Tamsulosin HCl (Flomax 0.4 mg) 0.4 MG PC DIN PO Acetaminophen (TYLENOL) 650 MG Q4H PRN PRN PO Docusate Sodium (COLACE) 100 MG BID PRN PRN PO Haloperidol (HALDOL) 10 MG BID PO Hydralazine HCl (APRESOLINE) 10 MG Q6H PRN PRN I V Hydrocodone Bitart/Acetaminophen (NORCO 5/325) 1 TAB Q6H PRN PRN PO Ondansetron HCl (ZOFRAN) 4 MG Q4H PRN PRN IV Sodium Bicarbonate (SODIUM BICARBONATE) 100 ML Q 11H IV (DC) Sodium Chloride (0.45% Sodium Chloride) 1,000 M L Benztropine Mesylate (COGENTIN) 1 MG DAILY PO Dextrose/Water (DEXTROSE 10% IN WATER) 125 ML DIR PRN IV (CKD) Dextrose/Water (DEXTROSE 10% IN WATER) 250 ML DIR PRN IV (CKD) Glucagon (GLUCAGON) 1 MG ASDIR PRN IM Insulin Human Lispro (HUMALOG) 0 AC HS SUBQ Results Findings/Data: Laboratory Tests 10/17/22712: [Embedded Image Not Available] Laboratory Tests 10/17 10/17 10/17 10/17 1119 0728 0713 0713 Chemistry Sodium (134 - 147 mEq/L) 140 Potassium (3.4 - 5.0 mEq/L) 3.2 L Chloride (100 - 108 mEq/L) 105 Carbon Dioxide (21 - 33 mEq/l) 26 Anion Gap (0 - 20) 12 BUN (7 - 18 mg/dL) 18 Creatinine (0.6 - 1.3 mg/dL) 0.9 Glomerular Filtr Rate (80 - 90) 96.0 H Glucose (70 - 110 mg/dL) 103 POC Glucose (70 - 110 MG/DL) 177 H 105 Calcium (8.0 - 10.5 mg/dL) 8.4 Phosphorus (2.5 - 4.9 MG/DL) 2.6 Magnesium (1.80 - 2.40 mg/dL) 1.50 L Total Bilirubin (0.0 - 1.0 mg/dL) 0.50 AST (15 - 37 IUnit/L) 23 ALT (30 - 65 IUnit/L) 24 L Total Alk Phosphatase (20 - 125 IUnit/L) 62 Total Protein (6.4 - 8.2 g/dL) 5.6 L Albumin (3.4 - 5.0 g/dL) 2.40 L Vitamin D 25-Hydroxy (30 - 100 ng/mL) 25.5 L Laboratory Tests 10/17 712 Hematology WBC (4.5 - 11.0 x10 3/uL) 11.5 H RBC (4.00 - 5.60 x10 6/uL) 4.17 Hgb (12.5 - 16.9 g/dL) 12.0 L Hct (37.5 - 50.7 %) 35.7 L MCV (81.0 - 99.0 fL) 85.6 MCH (27.0 - 33.0 pg) 28.8 MCHC (33.0 - 37.0 g/dL) 33.6 RDW (11.5 - 14.5 %) 14.2 Plt Count (150 - 400 x10 3/uL) 285 MPV (7.0 - 9.0 fL) 9.9 H Neut % (Auto) (56.0 - 77.0 %) 71.5 Lymph % (Auto) (14.0 - 32.0 %) 10.6 L Crosby % (Auto) (4.8 - 9.0 %) 12.8 H Eos % (Auto) (0.3 - 3.7 %) 2.7 Baso % (Auto) (0.0 - 2.0 %) 0.4 Neut # (Auto) (2.0 - 7.6 x10 3/uL) 8.23 H Lymph # (Auto) (1.0 - 3.8 x10 3/uL) 1.22 Crosby # (Auto) (0.1 - 0.8 x10 3/uL) 1.47 H Eos # (Auto) (0.0 - 0.2 x10 3/uL) 0.31 H Baso # (Auto) (0.0 - 0.2 x10 3/uL) 0.05 Abs Immat Gran (auto) (0.00 - 0.03 x10 3/uL) 0. 23 H Add Manual Diff NO Immature Gran % (0.0 - 2.0 %) 2.0 Nucleated RBC % (0 - 0 %) 0.0 Nucleated RBCs # (Man) (0.0 - 0.1 x10 3/uL) 0.0 0 Diagnosis, Assessment Plan Hospital course to date: General appearance: alert, awake Head/Eyes: atraumatic, clear cornea, EOMI, normo cephalic, normal conjunctiva/ sclera, normal eyelids/periorb, PERRLA ENT: normal dentition, normal ear left, normal e ar right, normal nose, normal pharynx, normal sinus Cardiovascular: regular rate rhythm Respiratory: decreased breath sounds, clear to a uscultation, no distress, no tenderness Abdomen/GI: active bowel sounds, soft Abdomen quadrants: LLQ normal bowel sounds, LLQ tenderness, LUQ nor mal bowel sounds, RLQ normal bowel sounds, RLQ tenderness, RUQ normal bowel s ounds Genitourinary: johns Extremities: moves all, no edema-all extremities , normal capillary refill, normal range of motion, normal sensory, normal m otor function Neuro/SHOULDER SAWYER: 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 Rupture of ureter Free Text DxA P Notes Free text DxA P notes: Assessment: 62-year-old male with last medical history of, B PH, transferred from [place] for urology evaluation and treatment sec ondary to possible ruptured ureter. As per patient his a bdomen was distended for at least for 2 days and he was having difficulty urinating. Patient present ed to outside facilityImaging revealed severe bilateral hydronephrosis with ev idence of active urine extravasation and large amou nt of urine in the bladder pushing all the way up to the abdomen. As per patient' s daughter about 3 L of fluid was removed within 10 minutes of Johns insertion. Patient reports he h as been experiencing urinary hesitancy for the past 2 to 3 years. 1. Abdominal distention, severe bilateral hydron ephrosis, large amount of urinary retention -Status post Johns insertion large amount of ur ine was obtained 2. Acute kidney injury 3. Hypokalemia/hypocalcemia, hyperchloremia 4. Metabolic acidosis 5. Possible BPH 6. Severe bilateral hydronephrosis 7. Hypertension 8. Schizophrenia Plan of care: Admit patient for further evaluation and treatme nt Urology consultation in place Keep Johns to bedside drainage I's and O's Monitor renal function Nephrology consultation Replace electrolytes Start tamsulosin Bicarb drip started Repeat CT of the abdomen and pelvis if needed Repeat labs Further recommendation based on patient's clinic al course 10/17/2022 Vital signs within normal limits Hypokalemia 3.2, hypomagnesemia 1.50 Renal function is improved, discontinue bicarb d rip, continue electrolyte control-replace as needed per nephro Urology is following Continue tamsulosin BP control-on hydralazine as needed, pain contro l Continue telemetry monitoring, intake and output , fall precaution Follow-up labs, continue medications and support nya care Electronically Signed by Sofia Cheng NP on 0 10/19/22 at 0210 Electronically Signed by Salinas Alba MD 10/21/22 at 1300 RPT #:[id number] END OF REPORT 2022-10-17 17:41:00-00:00 [facility]L [facility] ([facility]) Urology Progress Note REPORT#:[id number] REPORT STATUS: Signed DATE:10/17/22 TIME: 174 PATIENT: MATHEW CASTILLO UNIT #: [id number] ROOM/BED: 6630-1 : 59 AGE: 62 SEX: M ATTEND: Salinas Alba MD ADM AUTHOR: Dave Jones MD * ALL edits or amendments must be made on the [employer] document * Subjective Patient reports: no complaints Objective General VS/I O: Last Documented: Result Date Time Pulse Ox 94 10/17 1117 B/P 129/75 10/17 1117 B/P Mean 92.9 10/17 1117 Temp 37.5 10/17 1117 Pulse 92 10/17 1117 Resp 18 10/17 1117 O2 Delivery Room air 10/17 0638 24 hour I O ending at 0700: 10/17 0700 10/16 1900 Intake Total 800 Output Total 1200 3200 Balance -400 -3200 Intake, Oral 800 Number 3 1 Bowel Movements Output, Urine 1200 3200 PATIENT WEIGHT: Weight (lb): Weight (oz): Weight (kg): 68.000 Physical Exam General appearance: alert, awake Genitourinary: Genitourinary: catheter in situ Results Findings/Data: Laboratory Tests: 10/17 10/17 10/17 10/17 1119 0728 0713 0713 Chemistry Sodium (134 - 147 mEq/L) 140 Potassium (3.4 - 5.0 mEq/L) 3.2 L Chloride (100 - 108 mEq/L) 105 Carbon Dioxide (21 - 33 mEq/l) 26 Anion Gap (0 - 20) 12 BUN (7 - 18 mg/dL) 18 Creatinine (0.6 - 1.3 mg/dL) 0.9 Glomerular Filtr Rate (80 - 90) 96.0 H Glucose (70 - 110 mg/dL) 103 POC Glucose (70 - 110 MG/DL) 177 H 105 Calcium (8.0 - 10.5 mg/dL) 8.4 Phosphorus (2.5 - 4.9 MG/DL) 2.6 Magnesium (1.80 - 2.40 mg/dL) 1.50 L Total Bilirubin (0.0 - 1.0 mg/dL) 0.50 AST (15 - 37 IUnit/L) 23 ALT (30 - 65 IUnit/L) 24 L Total Alk Phosphatase (20 - 125 IUnit/L) 62 Total Protein (6.4 - 8.2 g/dL) 5.6 L Albumin (3.4 - 5.0 g/dL) 2.40 L Vitamin D 25-Hydroxy (30 - 100 ng/mL) 25.5 L Hematology WBC (4.5 - 11.0 x10 3/uL) 11.5 H RBC (4.00 - 5.60 x10 6/uL) 4.17 Hgb (12.5 - 16.9 g/dL) 12.0 L Hct (37.5 - 50.7 %) 35.7 L MCV (81.0 - 99.0 fL) 85.6 MCH (27.0 - 33.0 pg) 28.8 MCHC (33.0 - 37.0 g/dL) 33.6 RDW (11.5 - 14.5 %) 14.2 Plt Count (150 - 400 x10 3/uL) 285 MPV (7.0 - 9.0 fL) 9.9 H Neut % (Auto) (56.0 - 77.0 %) 71.5 Lymph % (Auto) (14.0 - 32.0 %) 10.6 L Crosby % (Auto) (4.8 - 9.0 %) 12.8 H Eos % (Auto) (0.3 - 3.7 %) 2.7 Baso % (Auto) (0.0 - 2.0 %) 0.4 Neut # (Auto) (2.0 - 7.6 x10 3/uL) 8.23 H Lymph # (Auto) (1.0 - 3.8 x10 3/uL) 1.22 Crosby # (Auto) (0.1 - 0.8 x10 3/uL) 1.47 H Eos # (Auto) (0.0 - 0.2 x10 3/uL) 0.31 H Baso # (Auto) (0.0 - 0.2 x10 3/uL) 0.05 Abs Immat Gran (auto) (0.00 - 0.03 x10 3/uL) 0. 23 H Add Manual Diff NO Immature Gran % (0.0 - 2.0 %) 2.0 Nucleated RBC % (0 - 0 %) 0.0 Nucleated RBCs # (Man) (0.0 - 0.1 x10 3/uL) 0.0 0 Diagnosis, Assessment Plan Free Text A P: back pressure edema and poss ible forniceal rupture from retention - SCr 0.9 - F/ U outpt ofr cystoscopy. Home with johns at 1742 RPT #:[id number] END OF REPORT 2022-10-17 13:46:00-00:00 [facility] Nephrology Progress Note REPORT#:[id number] REPORT STATUS: Signed DATE:10/17/22 TIME: 1345 PATIENT: MATHEW CASTILLO UNIT #: [id number] ROOM/BED: [place] [address] : 58 AGE: 62 SEX: M ATTEND: Salinas Alba MD ADM AUTHOR: Carmen Kemp * ALL edits or amendments must be made on the [employer]/computer document * Carmen Kemp 10/17/22 1346: Subjective Chief complaint: Concern for ruptured ureter HPI: The patient seen and examined. Resting i n bed, denies any N/V/D, tolerating PO intake w/o any issue. Johns to gravity, good UOP . Review of Systems ROS comments: A 12 point ROS is obtained and is negative unles s specified in HPI Objective General VS/I O: Vital Signs: Date Time Temp Pulse Resp B/P B/P Pulse O2 O2 F low FiO2 Mean Ox Delivery Rate 10/17 1117 37.5 92 18 129/75 92.9 94 10/17 0638 37.3 95 17 127/73 90.7 95 Room air 10/17 0302 37.5 97 16 130/76 94.2 93 Room air 10/16 2308 37.2 100 16 133/79 96.8 95 Room air 10/16 2111 37.4 92 16 156/82 107.1 95 Room air 24 hour I O ending at 0700: 07/13 0700 07/12 1900 Intake Total 800 Output Total 1200 3200 Balance -400 -3200 Intake, Oral 800 Number 3 1 Bowel Movements Output, Urine 1200 3200 PATIENT WEIGHT: Weight (lb): Weight (oz): Weight (kg): 68.000 Medications Active Meds + DC'd Last 24 Hrs Magnesium Sulfate (MAGNESIUM SULFATE 2GM/SWFI 50 ML) 50 ML ONCE ONE IV ( DC) Potassium Chloride (POTASSIUM CHLORIDE 20MEQ TAB .ER) 40 MEQ ONCE ONE PO (DC) Tamsulosin HCl (Flomax 0.4 mg) 0.4 MG PC DIN PO Acetaminophen (TYLENOL) 650 MG Q4H PRN PRN PO Docusate Sodium (COLACE) 100 MG BID PRN PRN PO Haloperidol (HALDOL) 10 MG BID PO Hydralazine HCl (APRESOLINE) 10 MG Q6H PRN PRN I V Hydrocodone Bitart/Acetaminophen (NORCO 5/325) 1 TAB Q6H PRN PRN PO Ondansetron HCl (ZOFRAN) 4 MG Q4H PRN PRN IV Sodium Bicarbonate (SODIUM BICARBONATE) 100 ML Q 11H IV (DCr) Sodium Chloride (0.45% Sodium Chloride) 1,000 M L Benztropine Mesylate (COGENTIN) 1 MG DAILY PO Dextrose/Water (DEXTROSE 10% IN WATER) 125 ML DIR PRN IV (CKD) Dextrose/Water (DEXTROSE 10% IN WATER) 250 ML DIR PRN IV (CKD) Glucagon (GLUCAGON) 1 MG ASDIR PRN IM Insulin Human Lispro (HUMALOG) 0 AC HS SUBQ Dietitian nutrition assessment The data set between the solid lines has been im ported from the dietitian's assessment. BMI Calculated: 22.1 Nutrition related diagnosis: Nutrition diagnosis details: Nutrition problem: Nutrition etiology: Nutrition signs and symptoms: Nutrition prescription: Dietitian name: Assessment completed: Physical Exam General appearance: alert, awake, oriented, no a cute distress Head/eyes: atraumatic, clear cornea, normal conj unctiva/sclera, normocephalic ENT: normal nose Neck: supple/no meningismus Cardiovascular: normal heart sounds Respiratory: decreased breath sounds, aerating w ell, no distress Abdomen: distended Genitourinary: urinary catheter, urine Extremities: no edema Results Findings/Data: Laboratory Tests 10/17 10/17 10/17 10/17 1119 0728 0713 0713 Chemistry Sodium (134 - 147 mEq/L) 140 Potassium (3.4 - 5.0 mEq/L) 3.2 L Chloride (100 - 108 mEq/L) 105 Carbon Dioxide (21 - 33 mEq/l) 26 Anion Gap (0 - 20) 12 BUN (7 - 18 mg/dL) 18 Creatinine (0.6 - 1.3 mg/dL) 0.9 Glomerular Filtr Rate (80 - 90) 96.0 H Glucose (70 - 110 mg/dL) 103 POC Glucose (70 - 110 MG/DL) 177 H 105 Calcium (8.0 - 10.5 mg/dL) 8.4 Phosphorus (2.5 - 4.9 MG/DL) 2.6 Magnesium (1.80 - 2.40 mg/dL) 1.50 L Total Bilirubin (0.0 - 1.0 mg/dL) 0.50 AST (15 - 37 IUnit/L) 23 ALT (30 - 65 IUnit/L) 24 L Total Alk Phosphatase (20 - 125 IUnit/L) 62 Total Protein (6.4 - 8.2 g/dL) 5.6 L Albumin (3.4 - 5.0 g/dL) 2.40 L Vitamin D 25-Hydroxy (30 - 100 ng/mL) 25.5 L Laboratory Tests 10/17 0713 Hematology WBC (4.5 - 11.0 x10 3/uL) 11.5 H RBC (4.00 - 5.60 x10 6/uL) 4.17 Hgb (12.5 - 16.9 g/dL) 12.0 L Hct (37.5 - 50.7 %) 35.7 L MCV (81.0 - 99.0 fL) 85.6 MCH (27.0 - 33.0 pg) 28.8 MCHC (33.0 - 37.0 g/dL) 33.6 RDW (11.5 - 14.5 %) 14.2 Plt Count (150 - 400 x10 3/uL) 285 MPV (7.0 - 9.0 fL) 9.9 H Neut % (Auto) (56.0 - 77.0 %) 71.5 Lymph % (Auto) (14.0 - 32.0 %) 10.6 L Crosby % (Auto) (4.8 - 9.0 %) 12.8 H Eos % (Auto) (0.3 - 3.7 %) 2.7 Baso % (Auto) (0.0 - 2.0 %) 0.4 Neut # (Auto) (2.0 - 7.6 x10 3/uL) 8.23 H Lymph # (Auto) (1.0 - 3.8 x10 3/uL) 1.22 Crosby # (Auto) (0.1 - 0.8 x10 3/uL) 1.47 H Eos # (Auto) (0.0 - 0.2 x10 3/uL) 0.31 H Baso # (Auto) (0.0 - 0.2 x10 3/uL) 0.05 Abs Immat Gran (auto) (0.00 - 0.03 x10 3/uL) 0. 23 H Add Manual Diff NO Immature Gran % (0.0 - 2.0 %) 2.0 Nucleated RBC % (0 - 0 %) 0.0 Nucleated RBCs # (Man) (0.0 - 0.1 x10 3/uL) 0. 00 Diagnosis, Assessment Plan Free Text A P: Assessment and Plan: CHANDRA (Resolved) -Renal function improved and wnl, johns to gravity, on bicarb gtt, will d/c now. -2/2 post-obstrucitve uropathy, monitor for post -obstructive diuresis. -UA, urine lytes requested -Per Urology note: Reportedly the patient had 3L of urine in his bladder. CT abdomen from [place] showed that the patien t has a very large distended bladder with hydroureteronep hrosis and there does appear to be maybe a forniceal rupture or some back pressure into the kidneys c ausing some inflammation and possibly a small amount of u rine to come out through the forniceal areas that I do not see an actual ruptured ureter. The patien t's creatinine has improved. His symptoms have totally re solved with catheter placement. This can be managed conservatively. The patient will follow up as an outpatient. -Avoid nephrotoxicity monitor renal function and UOP Hypokalemia/Hypocalcemia/Hypomagnesemia -K+ and Mg replaced. Vitamin D deficiency, vitam in D supplement. -Monitor for post-obstructive diuresis and elect rolyte imbalance Urinary Retention/BPH -Johns to gravity, Urology following, on Tamsulo sin -Per Urology note: Reportedly the patient had 3L of urine in his bladder. CT abdomen from [place] showed that the patien t has a very large distended bladder with hydroureteronep hrosis and there does appear to be maybe a forniceal rupture or some back pressure into the kidneys c ausing some inflammation and possibly a small amount of u rine to come out through the forniceal areas that I do not see an actual ruptured ureter. The patien t's creatinine has improved. His symptoms have totally re solved with catheter placement. This can be managed conservatively. The patient will follow up as an outpatient. HTN -BP acceptable, monitor, on PRN IV hydralazine Schizophrenia -Home medications resumed Discussed the plan with the patient, patient's dennys del valle, and . Toby Koehler 10/17/222: Attestations Physician Attestation Reviewed findings plan: Patient examined Renal func tion improved and wnl, johns to gravity, off bicarb drip -2/2 post-obstrucitve uropathy, monitor for post -obstructive diuresis, check lytes in am. urology evaluation noted. Agree wit h above A/P at 175 at 1460 [facility] #:[id number] END OF REPORT 2022-10-16 12:39:00-00:00 [facility] ([facility]) Nephrology Consultation Note REPORT#:[id number] REPORT STATUS: Signed DATE:10/16/22 TIME: 1239 PATIENT: MATHEW CASTILLO UNIT #: [id number] ROOM/BED: G.6630-1 : 59 AGE: 62 SEX: M ATTEND: Salinas Alba MD ADM AUTHOR: Carmen Kemp * ALL edits or amendments must be made on the [employer]/computer document * Carmen Kemp 10/16/22 1239: History of Present Illness Requesting clinician: Salinas Deshpande/Junior ron, MARLENA Reason for consult: CHANDRA Electrolyte imbalance Chief complaint: Concern for ruptured ureter PCP: PCP: No Primary or Family Physician HPI: is a pleasant 62 years old male wit h PMH significant for schizophrenia, HTN, BPH, current everyday smoker . The patient states that on Friday last week, he noted abdominal distention, associated w/ pain and was unable to urinate. He was seen by his daughter Yandel solis who took him to ER in [place]. He had CT abdomen which revealed b /l hydronephrosis and concern for possible ureteral ruptur e. He was transferred to [facility] for Urology evaluation. Initial VS at the ER showed a temper ature of 37.1c, pulse 92/min, respration 18/min, BP 146/78 mm Hg and S pO2 96%. Laboratory data showed normal WBC, hypokalemia w/ K+ 2.8, CO2 18, azot emia w/ BUN 41, Cr 2.1, elevated blood sugar of 643, hypocalcemia w/ Ca 4.9. Nephrology is consulted for the management of CHANDRA and elecrolyte imbalance. The patient seen and examined in ER. He is AAOX3, re sting in bed, breathing comfortably on RA. Johns to gravity w/ g ood UOP, states abdominal pain is much better. Denies any known h/o CKD, no h/o renal c alculi. History - Adult longitudinal Past medical history: Reports: Hypertension, BPH, Schizophrenia. Additional surgical history: None reported Additional family history: Noncontributory Alcohol use: Denies EtOH use Drug use: Denies recreational drugs Smoking status for patients 13 years old or olde r: Current every day smoker Date last smoked: 10/15/22 Medications: Home Medications: Medication Dose/Rte/Freq Days Qty Entered Last Max Daily Dose Reviewed BENZTROPINE 1 MG PO DAILY 10/16/22 10/16/22 Strength: 0.5 MG TAB 0923 0925 HALOPERIDOL (HALDOL) 10 MG PO BID 10/16/2210/05 Strength: 10 MG TAB 0925 09 Current Hospital Medications: Anti-Infective Agents Sig/Mark Start time Last Medication Dose Route Stop Time Status Admin Ceftriaxone Sodium 1,000 MG X1ED STA 10/16 0416 DC 10/16 (ROCEPHIN 1000MG IV 10/16 417 0503 VIAL) Sodium Chloride 10 ML (SODIUM CHLORIDE) Autonomic Drugs Sig/Mark Start time Last Medication Dose Route Stop Time Status Admin Tamsulosin HCl 0.4 MG PC DIN 10/16 1800 AC 10/05 2 (Flomax 0.4 mg) PO 11/15 1759 1747 Benztropine Mesylate 1 MG DAILY 10/16 1330 AC 0 10/16 (COGENTIN) PO 11/15 1329 1446 Cardiovascular Drugs Sig/Mark Start time Last Medication Dose Route Stop Time Status Admin Hydralazine HCl 10 MG Q6H PRN PRN 10/16 1345 AC (APRESOLINE) IV 11/15 1344 Central Nervous System Agents Sig/Mark Start time Last Medication Dose Route Stop Time Status Admin Haloperidol 10 MG BID 10/16 2100 DC (HALDOL) PO 11/15 2059 Acetaminophen 650 MG Q4H PRN PRN 10/16 1345 AC (TYLENOL) PO 11/15 1344 Haloperidol 10 MG BID 10/16 1345 AC 10/16 (HALDOL) PO 11/15 1330 1446 Hydrocodone Bitart/ 1 TAB Q6H PRN PRN 10/16 134 5 AC Acetaminophen PO 10/21 1344 (NORCO 5/325) Electrolytic, Caloric, And Scott Sig/Mark Start time Last Medication Dose Route Stop Time Status Admin Sodium Bicarbonate 100 ML Q11H 10/16 1345 CKD 0 10/16 (SODIUM BICARBONATE) IV 11/15 1344 1650 Sodium Chloride 1,000 ML (0.45% Sodium Chloride) Calcium Gluconate 100 ML ONCE ONE 10/16 1130 DC 10/16 (Calcium Gluconate 2 IV 10/16 1149 1449 GM/NS 100 mL (B2)) Dextrose/Water 125 ML ASDIR PRN 10/16 1130 CKD (DEXTROSE 10% IN IV 11/15 1129 WATER) Dextrose/Water 250 ML ASDIR PRN 10/16 1130 CKD (DEXTROSE 10% IN IV 11/15 112 WATER) Potassium Chloride 50 ML Q1HR 10/16 1000 DC (KCL 10MEQ/SWFI 50ML) IV 10/16 1159 1219 Potassium Chloride 40 MEQ Q2H 10/16 0930 DC (POTASSIUM CHLORIDE PO 10/16 1131 20MEQ TAB.ER) Gastrointestinal Drugs Sig/Mark Start time Last Medication Dose Route Stop Time Status Admin Docusate Sodium 100 MG BID PRN PRN 10/16 1345 A C (COLACE) PO 11/15 1344 Ondansetron HCl 4 MG Q4H PRN PRN 10/16 1345 AC (ZOFRAN) IV 11/15 1344 Hormones And Synthetic Substit Sig/Mark Start time Last Medication Dose Route Stop Time Status Admin Glucagon 1 MG ASDIR PRN 10/16 1130 AC (GLUCAGON) IM 11/15 1129 Insulin Human Lispro 0 AC HS 10/16 1130 AC (HUMALOG) SUBQ 11/15 1129 Allergies: Coded Allergies: No Known Allergies (10/16/22) Review of Systems Additional notes: A 12 point ROS is obtained and is negative unles s specified in HPI Objective General VS/I O: Vital Signs: Date Time Temp Pulse Resp B/P B/P Pulse O2 O2 F low FiO2 Mean Ox Delivery Rate 10/16 1646 37.4 93 14 159/90 112.9 95 10/16 0905 37.1 94 18 134/86 102 93 Room air 10/16 0330 90 146/80 107 96 10/16 0315 97 146/78 105 95 10/16 0308 37.1 92 18 146/78 100 96 Room air 24 hour I O ending at 0700: 10/16 0700 10/15 1900 Intake Total Output Total Balance Patient 68 kg Weight Weight Bed scale Measurement Method PATIENT WEIGHT: Weight (lb): Weight (oz): Weight (kg): 68.000 Medications: Active Meds + DC'd Last 24 Hrs Haloperidol (HALDOL) 10 MG BID PO (DC) Tamsulosin HCl (Flomax 0.4 mg) 0.4 MG PC DIN PO Acetaminophen (TYLENOL) 650 MG Q4H PRN PRN PO Docusate Sodium (COLACE) 100 MG BID PRN PRN PO Haloperidol (HALDOL) 10 MG BID PO Hydralazine HCl (APRESOLINE) 10 MG Q6H PRN PRN I V Hydrocodone Bitart/Acetaminophen (NORCO 5/325) 1 TAB Q6H PRN PRN PO Ondansetron HCl (ZOFRAN) 4 MG Q4H PRN PRN IV Sodium Bicarbonate (SODIUM BICARBONATE) 100 ML Q 11H IV (CKD) Sodium Chloride (0.45% Sodium Chloride) 1,000 M L Benztropine Mesylate (COGENTIN) 1 MG DAILY PO Calcium Gluconate (Calcium Gluconate 2 GM/NS 100 mL (B2)) 100 ML ONCE ONE IV (DC) Dextrose/Water (DEXTROSE 10% IN WATER) 125 ML DIR PRN IV (CKD) Dextrose/Water (DEXTROSE 10% IN WATER) 250 ML DIR PRN IV (CKD) Glucagon (GLUCAGON) 1 MG ASDIR PRN IM Insulin Human Lispro (HUMALOG) 0 AC HS SUBQ Potassium Chloride (KCL 10MEQ/SWFI 50ML) 50 ML Q 1HR IV (DC) Potassium Chloride (POTASSIUM CHLORIDE 20MEQ TAB .ER) 40 MEQ Q2H PO (DC) Ceftriaxone Sodium (ROCEPHIN 1000MG VIAL) 1,000 MG X1ED STA IV (DC) Sodium Chloride (SODIUM CHLORIDE) 10 ML Physical Exam General appearance: alert, awake, oriented, no a cute distress Head/eyes: atraumatic, clear cornea, normal conj unctiva/sclera, normocephalic ENT: normal nose Neck: supple/no meningismus Cardiovascular: normal heart sounds Respiratory: wheezes, aerating well, no distress Abdomen: distended Genitourinary: urinary catheter, urine Extremities: no edema Results Findings/Data: Laboratory Tests 10/16 10/16 10/16 10/16 10/16 1715 1322 1322 1322 1243 Chemistry Sodium (134 - 147 mEq/L) 138 Potassium (3.4 - 5.0 mEq/L) 4.0 Chloride (100 - 108 mEq/L) 106 Carbon Dioxide (21 - 33 mEq/l) 24 Anion Gap (0 - 20) 12 BUN (7 - 18 mg/dL) 33 H Creatinine (0.6 - 1.3 mg/dL) 1.4 H Glomerular Filtr Rate (80 - 90) 56.5 L Glucose (70 - 110 mg/dL) 107 POC Glucose (70 - 110 MG/DL) 113 H 102 Hemoglobin A1c (4.8 - 6.0 %A1C) 5.5 Calcium (8.0 - 10.5 mg/dL) 8.0 Magnesium (1.80 - 2.40 mg/dL) 1.91 Total Bilirubin (0.0 - 1.0 mg/dL) 0.70 AST (15 - 37 IUnit/L) 17 ALT (30 - 65 IUnit/L) 21 L Total Alk Phosphatase (20 - 125 IUnit/L) 62 Total Protein (6.4 - 8.2 g/dL) 5.8 L Albumin (3.4 - 5.0 g/dL) 2.60 L TSH (0.42 - 5.47 IU/mL) 1.59 10/16 10/16 1002 0443 Chemistry Sodium (134 - 147 mEq/L) 140 Potassium (3.4 - 5.0 mEq/L) 2.8 *L Chloride (100 - 108 mEq/L) 114 H Carbon Dioxide (21 - 33 mEq/l) 18 L Anion Gap (0 - 20) 11 BUN (7 - 18 mg/dL) 41 H Creatinine (0.6 - 1.3 mg/dL) 2.1 H Glomerular Filtr Rate (80 - 90) 34.7 L Glucose (70 - 110 mg/dL) 643 *H POC Glucose (70 - 110 MG/DL) 110 Calcium (8.0 - 10.5 mg/dL) 4.9 *L Laboratory Tests 10/16 1454 Coagulation INR (0.8 - 1.2) 1.3 H PT Patient/Control Mix (9.3 - 12.9 SECONDS) 14. 3 H Laboratory Tests 10/16 0443 Hematology WBC (4.5 - 11.0 x10 3/uL) 11.0 RBC (4.00 - 5.60 x10 6/uL) 3.74 L Hgb (12.5 - 16.9 g/dL) 10.9 L Hct (37.5 - 50.7 %) 31.7 L MCV (81.0 - 99.0 fL) 84.8 MCH (27.0 - 33.0 pg) 29.1 MCHC (33.0 - 37.0 g/dL) 34.4 RDW (11.5 - 14.5 %) 14.1 Plt Count (150 - 400 x10 3/uL) 207 MPV (7.0 - 9.0 fL) 9.8 H Neut % (Auto) (56.0 - 77.0 %) 81.5 H Lymph % (Auto) (14.0 - 32.0 %) 3.8 L Crosby % (Auto) (4.8 - 9.0 %) 13.6 H Eos % (Auto) (0.3 - 3.7 %) 0.4 Baso % (Auto) (0.0 - 2.0 %) 0.2 Neut # (Auto) (2.0 - 7.6 x10 3/uL) 8.96 H Lymph # (Auto) (1.0 - 3.8 x10 3/uL) 0.42 L Crosby # (Auto) (0.1 - 0.8 x10 3/uL) 1.49 H Eos # (Auto) (0.0 - 0.2 x10 3/uL) 0.04 Baso # (Auto) (0.0 - 0.2 x10 3/uL) 0.02 Abs Immat Gran (auto) (0.00 - 0.03 x10 3/uL) 0. 05 H Add Manual Diff NO Immature Gran % (0.0 - 2.0 %) 0.5 Nucleated RBC % (0 - 0 %) 0.0 Nucleated RBCs # (Man) (0.0 - 0.1 x10 3/uL) 0.0 0 Diagnosis, Assessment Plan Free Text DxA P Notes Free text DxA P notes: Assessment and Plan: CHANDRA -2/2 post-obstrucitve uropathy, johns to gravity, monitor for post-obstructive diuresis. -Repeat labs, renal function improving, on IVF w / bicarb per primary team -UA, urine lytes requested -Per Urology note: Reportedly the patient had 3L of urine in his bladder. CT abdomen from [place] showed that the patien t has a very large distended bladder with hydroureteronep hrosis and there does appear to be maybe a forniceal rupture or some back pressure into the kidneys c ausing some inflammation and possibly a small amount of u rine to come out through the forniceal areas that I do not see an actual ruptured ureter. The patien t's creatinine has improved. His symptoms have totally re solved with catheter placement. This can be managed conservatively. The patient will follow up as an outpatient. -Avoid nephrotoxicity monitor renal function and UOP Hypokalemia/Hypocalcemia -Lab error? repeat labs improved, K+ and Ca repl aced. -Monitor for post-obstructive diuresis and elect rolyte imbalance Urinary Retention/BPH -Johns to gravity, Urology following, on Tamsulo sin -Per Urology note: Reportedly the patient had 3L of urine in his bladder. CT abdomen from [place] showed that the patien t has a very large distended bladder with hydroureteronep hrosis and there does appear to be maybe a forniceal rupture or some back pressure into the kidneys c ausing some inflammation and possibly a small amount of u rine to come out through the forniceal areas that I do not see an actual ruptured ureter. The patien t's creatinine has improved. His symptoms have totally re solved with catheter placement. This can be managed conservatively. The patient will follow up as an outpatient. HTN -BP acceptable, monitor, on PRN IV hydralazine Schizophrenia -Home medications resumed Further recommendations based on the clinical co urse of the patient. I would like to thank and Junior ron for the consult and involving us in the care of this patient. Discussed the plan with the patient, patient's dennys del valle, and . Toby Koehler S 10/16/22 0063: Attestations Physician Attestation Reviewed findings plan: Patient examined 62 years ol d male with PMH significant for schizophrenia, HTN, BPH, current everyday smoker. The patient states that on Friday last week, he noted abdominal distention, associated w/ pain and was unable to urinate. He was seen by his daughter Friday who took him to ER in [place]. He had CT abdomen which revealed b/l hydronephrosis and co ncern for possible ureteral rupture. He was transferred to [facility] for Urology evaluation. Initial VS at the ER showed a temperatu re of 37.1c, pulse 92/min, respration 18/min, BP 146 /78 mm Hg and SpO2 96%. Labo ratory data showed normal WBC, hypokalemia w/ K+ 2.8 , CO2 18, azotemia w/ BUN 41 , Cr 2.1, elevated blood sugar of 643, hypocalcemia w/ Ca 4.9. Foleys to gravity, replace K aggressively monitor electrolytes closely including magnesium, urology evaluation noted, Agree with above A/P at 1902 at 6164 RPT #:[id number] END OF REPORT 2022-10-16 11:15:00-00:00 [facility] ([facility]) History Physical - Adult REPORT#:[id number] REPORT STATUS: Signed DATE:10/16/22 TIME: 1115 PATIENT: MATHEW CASTILLO UNIT #: [id number] ROOM/BED: [place] [id number] : 59 AGE: 62 SEX: M ATTEND: Salinas Alba MD ADM AUTHOR: Sofia Cheng QA TEST LEAD * ALL edits or amendments must be made on the [employer]/computer document * History of Present Illness HPI Chief complaint: Abdominal distention, hydronephrosis HPI: 62-year-old male with last medical history of, B PH, transferred from [place] for urology evaluation and treatment sec ondary to possible ruptured ureter. As per patient his a bdomen was distended for at least for 2 days and he was having difficulty urinating. Patient present ed to outside facilityImaging revealed severe bilateral hydronephrosis with ev idence of active urine extravasation and large amou nt of urine in the bladder pushing all the way up to the abdomen. As per patient' s daughter about 3 L of fluid was removed within 10 minutes of Johns insertion. Patient reports he h as been experiencing urinary hesitancy for the past 2 to 3 years. Den ies seeing a urologist. Patient denies fever, chills, dysuria, robert turia, or other associated symptoms. Patient denies shortness of breath, chest pain, nausea, vomitin g, diarrhea, constipation. Admission vital signs blood pressure 146/78, pul se 92, respiration 18, temperature 37.1, O2 sat 96% on room air. Abnormal labs: Hemoglobin 10.9, hematocrit 31.7, potass ium 2.8, chloride 114, CO2 18, BUN 41, creatinine 2.1, glucose 643Calcium 4.9. History Smoking status for patients 13 years old or olde r: Current some day smoker Date last smoked: 10/15/22 Medication/Allergy-Vaccine Hx Allergies: Coded Allergies: No Known Allergies (10/16/22) Review of Systems Constitutional: Denies: chills, fever. ENT: Denies: earache, nasal congestion, sore throat. Respiratory: Denies: hemoptysis, parox no cturnal dyspnea, pleurisy, pleuritic pain, pneumonia , SOB, wheezing. Cardiovascular: Denies: chest pain, palpitations. GI: Reports: abdominal pain. Denies: nausea, vomitin g. : Reports: flank pain, urinary retention. Denies: frequency, hematuria. Musculoskeletal: Arthritis: Denies: left upper, left lower, right upper, ri ght lower. Neuro: Denies: change in LOC, confusion, dizziness, foc al weakness, gait problem, headache, lightheaded, numbness, seizure, slurre d speech, spinning sensation, syncope, unable to speak, vision change. Psych: Reports: anxiety. Denies: agitation, change in m ental status, confusion, depression, homicidal ideation, hostile, insomni a, stress, suicidal ideation. Physical Exam VS/I O Vital Signs: Date Time Temp Pulse Resp B/P B/P Pulse O2 O2 F low FiO2 Mean Ox Delivery Rate 10/16 0905 37.1 94 18 134/86 102 93 Room air 10/16 0330 90 146/80 107 96 10/16 0315 97 146/78 105 95 10/16 0308 37.1 92 18 146/78 100 96 Room air 24 hour I O ending at 0700: 10/16 0700 10/15 1900 Intake Total Output Total Balance Patient 68 kg Weight Weight Bed scale Measurement Method PATIENT WEIGHT: Weight (lb): Weight (oz): Weight (kg): 68.000 General appearance: alert, awake Head/Eyes: atraumatic, clear cornea, EOMI, normo cephalic, normal conjunctiva/ sclera, normal eyelids/periorb, PERRLA ENT: normal dentition, normal ear left, normal e ar right, normal nose, normal pharynx, normal sinus Cardiovascular: regular rate rhythm Respiratory: decreased breath sounds, clear to a uscultation, no distress, no tenderness Abdomen/GI: active bowel sounds, soft Abdomen quadrants: LLQ normal bowel sounds, LLQ tenderness, LUQ nor mal bowel sounds, RLQ normal bowel sounds, RLQ tenderness, RUQ normal bowel s ounds Genitourinary: johns Extremities: moves all, no edema-all extremities , normal capillary refill, normal range of motion, normal sensory, normal m otor function Neuro/SHOULDER SAWYER: alert, oriented X 3 Skin: dry, intact, no gross abnormalities Psychiatry: no hallucinations, normal mood Results Findings/Data: Laboratory Tests: 10/16 10/16 1002 0443 Chemistry Sodium (134 - 147 mEq/L) 140 Potassium (3.4 - 5.0 mEq/L) 2.8 *L Chloride (100 - 108 mEq/L) 114 H Carbon Dioxide (21 - 33 mEq/l) 18 L Anion Gap (0 - 20) 11 BUN (7 - 18 mg/dL) 41 H Creatinine (0.6 - 1.3 mg/dL) 2.1 H Glomerular Filtr Rate (80 - 90) 34.7 L Glucose (70 - 110 mg/dL) 643 *H POC Glucose (70 - 110 MG/DL) 110 Calcium (8.0 - 10.5 mg/dL) 4.9 *L Hematology WBC (4.5 - 11.0 x10 3/uL) 11.0 RBC (4.00 - 5.60 x10 6/uL) 3.74 L Hgb (12.5 - 16.9 g/dL) 10.9 L Hct (37.5 - 50.7 %) 31.7 L MCV (81.0 - 99.0 fL) 84.8 MCH (27.0 - 33.0 pg) 29.1 MCHC (33.0 - 37.0 g/dL) 34.4 RDW (11.5 - 14.5 %) 14.1 Plt Count (150 - 400 x10 3/uL) 207 MPV (7.0 - 9.0 fL) 9.8 H Neut % (Auto) (56.0 - 77.0 %) 81.5 H Lymph % (Auto) (14.0 - 32.0 %) 3.8 L Crosby % (Auto) (4.8 - 9.0 %) 13.6 H Eos % (Auto) (0.3 - 3.7 %) 0.4 Baso % (Auto) (0.0 - 2.0 %) 0.2 Neut # (Auto) (2.0 - 7.6 x10 3/uL) 8.96 H Lymph # (Auto) (1.0 - 3.8 x10 3/uL) 0.42 L Crosby # (Auto) (0.1 - 0.8 x10 3/uL) 1.49 H Eos # (Auto) (0.0 - 0.2 x10 3/uL) 0.04 Baso # (Auto) (0.0 - 0.2 x10 3/uL) 0.02 Abs Immat Gran (auto) (0.00 - 0.03 x10 3/uL) 0. 05 H Add Manual Diff NO Immature Gran % (0.0 - 2.0 %) 0.5 Nucleated RBC % (0 - 0 %) 0.0 Nucleated RBCs # (Man) (0.0 - 0.1 x10 3/uL) 0.0 0 Diagnosis, Assessment Plan Problem List/A P: 1. Rupture of ureter Free Text DxA P Notes Free Text DxA P Notes: Assessment: 62-year-old male with last medical history of, B PH, transferred from [place] for urology evaluation and treatment sec ondary to possible ruptured ureter. As per patient his a bdomen was distended for at least for 2 days and he was having difficulty urinating. Patient present ed to outside facilityImaging revealed severe bilateral hydronephrosis with ev idence of active urine extravasation and large amou nt of urine in the bladder pushing all the way up to the abdomen. As per patient' s daughter about 3 L of fluid was removed within 10 minutes of Johns insertion. Patient reports he h as been experiencing urinary hesitancy for the past 2 to 3 years. 1. Abdominal distention, severe bilateral hydron ephrosis, large amount of urinary retention -Status post Johns insertion large amount of ur ine was obtained 2. Acute kidney injury 3. Hypokalemia/hypocalcemia, hyperchloremia 4. Metabolic acidosis 5. Possible BPH 6. Severe bilateral hydronephrosis 7. Hypertension 8. Schizophrenia Plan of care: Admit patient for further evaluation and treatme nt Urology consultation in place Keep Johns to bedside drainage I's and O's Monitor renal function Nephrology consultation Replace electrolytes Start tamsulosin Bicarb drip started Repeat CT of the abdomen and pelvis if needed Repeat labs Further recommendation based on patient's clinic al course Electronically Signed by Sofia Cheng QA TEST LEAD on 0 10/17/22 at 0232 Electronically Signed by Salinas Alba MD o n 10/18/22 at 1204 RPT #:[id number] END OF REPORT 2022-10-16 03:54:00-00:00 [facility] ([facility] REPORT REPORT#:[id number] REPORT STATUS: Signed DATE:10/16/22 TIME: 035 PATIENT: MATHEW CASTILLO UNIT #: [id number] ROOM/BED: [place] [address] AGE: 62 SEX: M PCP PHYS: No Primary or Family Ph ysician SERVICE AUTHOR: Alecia Iverson MD * ALL edits or amendments must be made on the [employer]/computer document * HPI-General Illness General Initial Greet Date/Time 10/16/22 0307 Presentation Chief Complaint __ (ruptured ureter) Free Text HPI Notes Free Text HPI Notes This is a 62-year-old male, past medical history of schizophrenia, who presents to the emergency department with a ruptured uret er. He was transferred from outside facility for urology consult. His daught er is with him who provides most of the history, states that for the past 2 days he has been having increasing abdominal distention, went to outside hospital was found to have severe bilateral hydronephrosis with evidence of active urine extravasation likely from the ureter. And here for further sujatha luation. Patient denies any pain Review of Systems ROS Statements All systems rev neg except as marked. Free Text ROS Notes Free Text ROS Notes abdominal distension Past Medical History - Adult Stated Complaint ACUTE RENAL FAILURE, RUPTURED L EFT URETER Allergies Coded Allergies: No Known Allergies (10/16/22) Home Medications Reported Medications BENZTROPINE 1 MG PO DAILY HALOPERIDOL (HALDOL) 10 MG PO BID Calculated Suicide Risk (nurs) No risk Smoking status for patients 13 years old or olde r: Current some day smoker Physical Exam Vital Signs Vital Signs First Documented: Result Date Time Pulse Ox 96 10/16 0308 B/P 146/78 10/16 0308 B/P Mean 100 10/16 0308 O2 Delivery Room air 10/16 0308 Temp 37.1 10/16 0308 Pulse 92 10/16 0308 Resp 18 10/16 0308 Last Documented: Result Date Time Pulse Ox 96 10/16 0330 B/P 146/80 10/16 0330 B/P Mean 107 10/16 0330 Pulse 90 / 0330 O2 Delivery Room air 10/16 0308 Temp 37.1 10/16 0308 Resp 18 10/16 0308 Review of Vital Signs Reviewed Free Text PE Notes Free Text PE Notes Gen.: Awake and conversing. NAD HEENT: NCAT. MM moist Eyes: PERRL. EOMI. Conjunctiva normal. Neck: Supple. Trachea is midline. Heart: RRR. No murmur Chest: CTA bilat. No accessory muscle usage. Abdomen: Abdominal distention, nontender to palp ation. No guarding or rebound Extremities: No deformities. No joint warmth or erythema. Neuro: AAO. CNII-XII grossly intact Psych: Normal mood and affect. Skin: No lacertions. No abscess. Interpretation Diagnostics Lab Results Interpretation Results Laboratory Tests 10/16/22 0443: [Embedded Image Not Available] Laboratory Tests: 10/16 442 Chemistry Sodium (134 - 147 mEq/L) 140 Potassium (3.4 - 5.0 mEq/L) 2.8 *L Chloride (100 - 108 mEq/L) 114 H Carbon Dioxide (21 - 33 mEq/l) 18 L Anion Gap (0 - 20) 11 BUN (7 - 18 mg/dL) 41 H Creatinine (0.6 - 1.3 mg/dL) 2.1 H Glomerular Filtr Rate (80 - 90) 34.7 L Glucose (70 - 110 mg/dL) 643 *H Calcium (8.0 - 10.5 mg/dL) 4.9 *L Hematology WBC (4.5 - 11.0 x10 3/uL) 11.0 RBC (4.00 - 5.60 x10 6/uL) 3.74 L Hgb (12.5 - 16.9 g/dL) 10.9 L Hct (37.5 - 50.7 %) 31.7 L MCV (81.0 - 99.0 fL) 84.8 MCH (27.0 - 33.0 pg) 29.1 MCHC (33.0 - 37.0 g/dL) 34.4 RDW (11.5 - 14.5 %) 14.1 Plt Count (150 - 400 x10 3/uL) 207 MPV (7.0 - 9.0 fL) 9.8 H Neut % (Auto) (56.0 - 77.0 %) 81.5 H Lymph % (Auto) (14.0 - 32.0 %) 3.8 L Crosby % (Auto) (4.8 - 9.0 %) 13.6 H Eos % (Auto) (0.3 - 3.7 %) 0.4 Baso % (Auto) (0.0 - 2.0 %) 0.2 Neut # (Auto) (2.0 - 7.6 x10 3/uL) 8.96 H Lymph # (Auto) (1.0 - 3.8 x10 3/uL) 0.42 L Crosby # (Auto) (0.1 - 0.8 x10 3/uL) 1.49 H Eos # (Auto) (0.0 - 0.2 x10 3/uL) 0.04 Baso # (Auto) (0.0 - 0.2 x10 3/uL) 0.02 Abs Immat Gran (auto) (0.00 - 0.03 x10 3/uL) 0. 05 H Add Manual Diff NO Immature Gran % (0.0 - 2.0 %) 0.5 Nucleated RBC % (0 - 0 %) 0.0 Nucleated RBCs # (Man) (0.0 - 0.1 x10 3/uL) 0.0 0 Re-Evaluation MDM Free Text MDM Notes Additional Text This is a 62-year-old male who is transferred he re for urology consult after found to have a likely left-sided ureteral ruptu re. Vital signs are stable with normal limits, no co ncern for sepsis. Abdomen is benign. Laboratory studies reveal ARF, likely postobstru ctive due to prostate hypertrophy with severe 100 versus Urology consulted, recommends placing n. p.o. and will evaluate in the morning. 1 g of Rocephin IV given. We will continue to mo nitor and admit to medicine service with urology consult. ED Course Medication(s) Ordered Medication(s) Ordered: Anti-Infective Agents Sig/Mark Start time Last Medication Dose Route Stop Time Status Admin Ceftriaxone Sodium 1,000 MG X1ED STA 10/16 0416 DC 10/16 Sodium Chloride 10 ML IV 10/16 417 0503 Consultation Consultation Referral/Consult Name Dave Jones MD Commercial Finance Manager Called Urology Commercial Finance Manager Discussed with eligibility consultant Requested Call Time 0345 Requested Call Date 10/16/22 Call Returned Call returned Call Returned Time 0355 Call Returned Date 10/16/22 Free Text Consult Notes Recommends abx, [facility] Patient Discharge Departure Vital Signs/Condition Vital Signs First Documented: Result Date Time Pulse Ox 96 10/16 0308 B/P 146/78 / 0308 B/P Mean 100 / 0308 O2 Delivery Room air 10/16 0308 Temp 37.1 10/16 0308 Pulse 92 / 0308 Resp 18 10/16 0308 Last Documented: Result Date Time Pulse Ox 96 10/16 0330 B/P 146/80 / 0330 B/P Mean 107 / 0330 Pulse 90 07/ 0330 O2 Delivery Room air 10/16 0308 Temp 37.1 10/16 0308 Resp 18 10/16 0308 All vital signs available at the time of this en try have been reviewed. Clinical Impression Clinical Impression Primary Impression: Rupture of ureter Disposition Decision Hospitalize Hosp Physician Name Salinas Alba MD Hosp Physician Hospitalist Request Time 0508 Request Date 10/16/22 )( Accepts Hospitalization Yes )( Reason for Hospitalization concern for rupture ureter )( Accepted Time 0508 )( Accepted Date 10/16/22 Call Information will see patient Supervising Physician Note MidLv Saw Pt Alone I was available in the emerg ency department for questions or consultation, I did not personally see this patient. I was not involved in the care of this patient a nd am signing this chart for administrative purposes only. Electronically Signed by Alecia Iverson MD on 0 10/16/22 at 1907 RPT #:[id number] END OF REPORT
[2022-11-08 20:27] LABS: Specific Gravity 1.016 (1.005-1.030); Urine Bacteria <20 /HPF (<20); Urine Bilirubin NEGATIVE (Negative); Urine Blood 2+ (Negative); Urine Clarity Turbid (Clear); Urine Color Yellow (Yellow); Urine Glucose NEGATIVE (Negative); Urine Mucus Slight /HPF (None Seen); Urine Protein 1+ (Negative); Urine RBC >50 /HPF (None Seen); Urine Urobilinogen Normal (Normal); Urine pH 5.5 (5.0-7.0)
--- NOTE | 2022-11-08 22:51 | EDPHYS ---
Physician Documentation [facility] Name: Mathew Porter Age: 62 yrs Sex: Male : 1960 Arrival Date: 11/08/2022 Time: 17:50 Bed 12 Private MD: Lakhwinder Guillermo ED Physician Karsten Coles HPI: 11/08 22:45 This 62 yrs old Male presents to ER via Ambulatory with complaints of Urinary genna Problem, Penile Pain, Abdominal Swelling. 22:45 The patient presents with urinary symptoms, retention. Onset: The symptoms/episode genna began/occurred today. Modifying factors: The symptoms are alleviated by nothing, the symptoms are aggravated by nothing. Associated signs and symptoms: The patient has no apparent associated signs or symptoms. Severity of symptoms: At their worst the symptoms were mild, in the emergency department the symptoms are unchanged. The patient has not experienced similar symptoms in the past. Historical: - Allergies: 18:27 No Known Allergies; mb9 - Home Meds: 18:27 Haldol Oral 10 mg twice a day [Active]; Flomax 0.4 mg Oral capsule [Active]; mb9 - PMHx: 18:27 Schizophrenia; mb9 - PSHx: 18:27 None; mb9 - Immunization history:: Adult Immunizations up to date. - Social history:: Smoking status: Patient/guardian denies using tobacco. ROS: 22:46 Constitutional: Negative for fever, chills, and weight loss, Eyes: Negative for injury, genna pain, redness, and discharge, ENT: Negative for injury, pain, and discharge, Neck: Negative for injury, pain, and swelling, Cardiovascular: Negative for chest pain, palpitations, and edema, Respiratory: Negative for shortness of breath, cough, wheezing, and pleuritic chest pain, Back: Negative for injury and pain, : Negative for injury, bleeding, discharge, and swelling, MS/Extremity: Negative for injury and deformity, Skin: Negative for injury, rash, and discoloration, Neuro: Negative for headache, weakness, numbness, tingling, and seizure, Psych: Negative for depression, anxiety, suicide ideation, homicidal ideation, and hallucinations, Allergy/Immunology: Negative for hives, rash, and allergies, Endocrine: Negative for neck swelling, polydipsia, polyuria, polyphagia, and marked weight changes, Hematologic/Lymphatic: Negative for swollen nodes, abnormal bleeding, and unusual bruising. 22:46 Abdomen/GI: Positive for abdominal distension, of the suprapubic area. Exam: 22:46 Constitutional: This is a well developed, well nourished patient who is awake, alert, genna and in no acute distress. Head/Face: Normocephalic, atraumatic. Eyes: Pupils equal round and reactive to light, extra-ocular motions intact. Lids and lashes normal. Conjunctiva and sclera are non-icteric and not injected. Cornea within normal limits. Periorbital areas with no swelling, redness, or edema. ENT: Nares patent. No nasal discharge, no septal abnormalities noted. Tympanic membranes are normal and external auditory canals are clear. Oropharynx with no redness, swelling, or masses, exudates, or evidence of obstruction, uvula midline. Mucous membranes moist. Neck: Trachea midline, no thyromegaly or masses palpated, and no cervical lymphadenopathy. Supple, full range of motion without nuchal rigidity, or vertebral point tenderness. No Meningismus. Chest/axilla: Normal chest wall appearance and motion. Nontender with no deformity. No lesions are appreciated. Cardiovascular: Regular rate and rhythm with a normal S1 and S2. No gallops, murmurs, or rubs. Normal PMI, no JVD. No pulse deficits. Respiratory: Lungs have equal breath sounds bilaterally, clear to auscultation and percussion. No rales, rhonchi or wheezes noted. No increased work of breathing, no retractions or nasal flaring. Abdomen/GI: Soft, non-tender, with normal bowel sounds. No distension or tympany. No guarding or rebound. No evidence of tenderness throughout. Back: No spinal tenderness. No costovertebral tenderness. Full range of motion. Skin: Warm, dry with normal turgor. Normal color with no rashes, no lesions, and no evidence of cellulitis. MS/ Extremity: Pulses equal, no cyanosis. Neurovascular intact. Full, normal range of motion. Neuro: Awake and alert, GCS 15, oriented to person, place, time, and situation. Cranial nerves II-XII grossly intact. Motor strength 5/5 in all extremities. Sensory grossly intact. Cerebellar exam normal. Normal gait. Psych: Awake, alert, with orientation to person, place and time. Behavior, mood, and affect are within normal limits. 22:46 Abdomen/GI: Inspection: distension, that is mild, Bowel sounds: normal, Palpation: mild abdominal tenderness, in the suprapubic area, Liver: no appreciated palpable abnormalities, Hernia: not appreciated. Vital Signs: 18:22 BP 127 / 93; Pulse 114; Resp 16; Temp 98; Pulse Ox 97% on R/A; Weight 69.4 kg; Height 5 mb9 ft. 10 in. ; Pain 10/10; 19:05 BP 126 / 80; Pulse 102; Resp 18 S; Pulse Ox 100% on R/A; ha1 20:05 BP 118 / 66; Pulse 100; Resp 18 S; Pulse Ox 100% on R/A; ha1 21:00 BP 114 / 69; Pulse 98; Resp 18 S; Pulse Ox 100% on R/A; ha1 22:00 BP 137 / 79; Pulse 95; Resp 17 S; Pulse Ox 100% on R/A; ha1 23:00 BP 123 / 71; Pulse 92; Resp 16 S; Pulse Ox 100% on R/A; ha1 18:22 Body Mass Index 21.95 (69.40 kg, 177.8 cm) mb9 18:22 Pain Scale: Adult mb9 MDM: 20:59 Patient medically screened. genna 22:47 Differential diagnosis: nonspecific abdominal pain, nonspecific abdominal pain, genna prostatitis, urethritis, urinary tract infection. Data reviewed: vital signs, nurses notes, lab test result(s). Consideration of Admission/Observation Escalation of care including admission/observation considered. I considered the following discharge prescriptions or medication management in the emergency department Medications were administered in the Emergency Department. See MAR. Test considered but Not performed: CT: no ct stone. Historians other than the Patient: Daughter/Son: daughter , well informed. Care significantly affected by the following chronic conditions: bph, schizophrenia. Counseling: I had a detailed discussion with the patient and/or guardian regarding: the historical points, exam findings, and any diagnostic results supporting the discharge/admit diagnosis, lab results, the need for outpatient follow up, for definitive care, a family practitioner, a urologist. 11/08 19:07 Order name: Urinalysis w/ reflexes; Complete Time: 22:05 kdr 11/08 20:33 Order name: Urine Culture EDMS 11/08 22:45 Order name: CBC with Diff; Complete Time: 23:33 genna 11/08 22:45 Order name: Comprehensive Metabolic Panel; Complete Time: 23:45 genna 11/08 18:30 Order name: Mercer; Complete Time: 20:17 kdr 11/08 19:07 Order name: Bladder Scanner; Complete Time: 20:16 kdr Administered Medications: 23:15 Drug: NS 0.9% IV 500 ml Route: IV; Rate: bolus; Site: right antecubital; pf1 11/09 00:02 Follow up: Response: No adverse reaction; Marked relief of symptoms; IV Status: pf1 Completed infusion; IV Intake: 500ml 11/08 23:16 Drug: Ciprofloxacin PO 500 mg Route: PO; pf1 11/09 00:02 Follow up: Response: No adverse reaction pf1 Disposition Summary: 11/08/22 23:46 Discharge Ordered Location: Home(11/08/22 23:46) genna Problem: new(11/08/22 23:46) genna Symptoms: have improved(11/08/22 23:46) genna Condition: Stable(11/08/22 23:46) genna Diagnosis - Retention of urine, unspecified - PVR 1 LITER(11/08/22 23:46) genna - Unspecified kidney failure - CHRONIC KIDNEY FAILURE genna Followup: genna - With: - When: 2 - 3 days - Reason: Recheck today's complaints, Continuance of care, Re-evaluation by your physician Followup: genna - With: - When: 2 - 3 days - Reason: Recheck today's complaints, Re-evaluation by your physician Discharge Instructions: - Discharge Summary Sheet genna - Acute Urinary Retention, Male genna - Acute Urinary Retention, Male, [id number] genna - Chronic Kidney Disease, Adult, [id number] genna Forms: - Medication Reconciliation Form genna - Thank You Letter genna - Antibiotic Education genna - Prescription Opioid Use genna - Patient Portal Instructions [facility] Prescriptions: - Flomax 0.4 mg Oral capsule - take 1 capsule by ORAL route every 24 hours; 20 capsule; Refills: 0, Product genna Selection Permitted - Augmentin 500-125 mg Oral Tablet - take 1 tablet by ORAL route every 8 hours for 7 days; 20 tablet; Refills: 0, genna Product Selection Permitted Signatures: Dispatcher [employer] EDMS SanketKarsten MD MD cha Rittger, Kevin, MD MD kdr Breneman, Mary Beth RN RN mb9 Isha Adams RN RN pf1 Corrections: (The following items were deleted from the chart) 11/08 22:57 22:50 Home genna [facility] 22:57 22:50 new [facility] 22:57 22:50 have improved genna genna 22:57 22:50 Stable genna [facility] 22:57 22:50 Retention of urine, unspecified - PVR 1 LITER [facility] 11/09 00:16 11/08 23:45 Leg Bag ordered. [facility] pf1
--- NOTE | 2022-11-08 22:51 | ER ---
Nurse's Notes [facility] Name: Mathew Porter Age: 62 yrs Sex: Male : 1960 Arrival Date: 11/08/2022 Time: 17:50 Bed 12 Private MD: Lakhwinder Guillermo Diagnosis: Retention of urine, unspecified-PVR 1 LITER;Unspecified kidney failure-CHRONIC KIDNEY FAILURE Presentation: 11/08 18:22 Chief complaint: Patient states: "In October, I came here for an enlarged prostate and mb9 distended bladder. I got transferred to another hospital and they put a catheter in. On Friday, I got my catheter taken out per my urologist, Dr. Jones. My bladder feels swollen and distended since the catheter has been removed and my penis hurts really bad. I'm able to urinate, but just a little bit comes out.The urologist told us to come to the ER if the swelling and pain gets bad.". Coronavirus screen: Vaccine status: Patient reports receiving the 2nd dose of the covid vaccine. Ebola Screen: No symptoms or risks identified at this time. Initial Sepsis Screen: Does the patient meet any 2 criteria? No. Patient's initial sepsis screen is negative. Does the patient have a suspected source of infection? No. Patient's initial sepsis screen is negative. Risk Assessment: Do you want to hurt yourself or someone else? Patient reports no desire to harm self or others. Onset of symptoms was 2022. 18:22 Method Of Arrival: Ambulatory mb9 18:22 Acuity: JAMILA 3 mb9 Triage Assessment: 18:28 General: Appears in no apparent distress. Behavior is calm, cooperative. Pain: mb9 Complains of pain in abdomen Pain does not radiate. Pain currently is 10 out of 10 on a pain scale. Quality of pain is described as pressure, Pain began gradually. Neuro: Devine Agitation-Sedation Scale (RASS): 0 - Alert and Calm Level of Consciousness is awake, alert, obeys commands. Respiratory: Airway is patent Respiratory effort is even, unlabored, Respiratory pattern is regular, symmetrical. GI: Abdomen is distended. : Reports pain with urination. Derm: Skin is pink, warm \\T\\ dry. Musculoskeletal: Range of motion: intact in all extremities. Historical: - Allergies: 18:27 No Known Allergies; mb9 - Home Meds: 18:27 Haldol Oral 10 mg twice a day [Active]; Flomax 0.4 mg Oral capsule [Active]; mb9 - PMHx: 18:27 Schizophrenia; mb9 - PSHx: 18:27 None; mb9 - Immunization history:: Adult Immunizations up to date. - Social history:: Smoking status: Patient/guardian denies using tobacco. Screenin:05 [facility] ED Fall Risk Assessment (Adult) History of falling in the last 3 months, ha1 including since admission No falls in past 3 months (0 pts) Confusion or Disorientation No (0 pts) Intoxicated or Sedated No (0 pts) Impaired Gait No (0 pts) Mobility Assist Device Used No (0 pt) Altered Elimination No (0 pt) Score/Fall Risk Level 0 - 2 = Low Risk Oriented to surroundings, Maintained a safe environment, Educated pt \\T\\ family on fall prevention, incl call for assistance when getting out of bed. Abuse screen: Denies threats or abuse. Denies injuries from another. Nutritional screening: No deficits noted. Tuberculosis screening: No symptoms or risk factors identified. Assessment: 19:05 General: Appears uncomfortable, Behavior is calm, cooperative. Pain: Complains of pain ha1 in pelvis Pain does not radiate. Pain currently is 8 out of 10 on a pain scale. Neuro: Level of Consciousness is awake, alert, obeys commands, Oriented to person, place, time, situation. Cardiovascular: Patient's skin is warm and dry. Respiratory: Airway is patent Respiratory effort is even, unlabored, Respiratory pattern is regular, symmetrical. : Urine is cloudy. : Reports inability to void, since Friday. Derm: Skin is pink, warm \\T\\ dry. Musculoskeletal: Circulation, motion, and sensation intact. 19:05 GI: Abdomen is flat, non-distended, Bowel sounds present X 4 quads. Abd is soft and non ha1 tender X 4 quads. 20:05 Reassessment: Patient and/or family updated on plan of care and expected duration. Pain ha1 level reassessed. Patient is alert, oriented x 3, equal unlabored respirations, skin warm/dry/pink. 21:01 Reassessment: Patient and/or family updated on plan of care and expected duration. Pain ha1 level reassessed. Patient is alert, oriented x 3, equal unlabored respirations, skin warm/dry/pink. Patient denies pain at this time. Patient states feeling better. Patient states symptoms have improved. 22:00 Reassessment: Patient and/or family updated on plan of care and expected duration. Pain ha1 level reassessed. Patient is alert, oriented x 3, equal unlabored respirations, skin warm/dry/pink. 23:00 Reassessment: Patient and/or family updated on plan of care and expected duration. Pain ha1 level reassessed. Patient is alert, oriented x 3, equal unlabored respirations, skin warm/dry/pink. 11/09 00:00 Reassessment: Patient and/or family updated on plan of care and expected duration. Pain ha1 level reassessed. Patient is alert, oriented x 3, equal unlabored respirations, skin warm/dry/pink. Patient denies pain at this time. Patient states feeling better. Patient states symptoms have improved. Vital Signs: 11/08 18:22 BP 127 / 93; Pulse 114; Resp 16; Temp 98; Pulse Ox 97% on R/A; Weight 69.4 kg; Height 5 mb9 ft. 10 in. ; Pain 10/10; 19:05 BP 126 / 80; Pulse 102; Resp 18 S; Pulse Ox 100% on R/A; ha1 20:05 BP 118 / 66; Pulse 100; Resp 18 S; Pulse Ox 100% on R/A; ha1 21:00 BP 114 / 69; Pulse 98; Resp 18 S; Pulse Ox 100% on R/A; ha1 22:00 BP 137 / 79; Pulse 95; Resp 17 S; Pulse Ox 100% on R/A; ha1 23:00 BP 123 / 71; Pulse 92; Resp 16 S; Pulse Ox 100% on R/A; ha1 18:22 Body Mass Index 21.95 (69.40 kg, 177.8 cm) mb9 18:22 Pain Scale: Adult mb9 ED Course: 17:53 Patient arrived in ED. mr 17:53 Lakhwinder Guillermo MD is Private Physician. mr 17:58 Christian Kan MD is Attending Physician. kdr 18:22 Arm band placed on. mb9 18:27 Triage completed. mb9 19:05 Patient has correct armband on for positive identification. Placed in gown. Bed in low ha1 position. Call light in reach. Side rails up X 1. 20:00 Mercer cath inserted, using sterile technique, 16 Fr., by nm, balloon inflated, to ha1 gravity drainage, urine specimen collected. returned cloudy urine. Patient tolerated well. 20:17 Urinalysis w/ reflexes Sent. ha1 20:58 Attending Physician role handed off by Christian Kan MD [facility] 20:58 Karsten Coles MD is Attending Physician. genna 22:49 Lakhwinder Guillermo MD is Referral Physician. genna 22:49 Ricky Navarrete MD is Referral Physician. genna 23:10 No provider procedures requiring assistance completed. Inserted saline lock: 20 gauge pf1 in right antecubital area, using aseptic technique. Blood collected. 23:17 Comprehensive Metabolic Panel Sent. pf1 23:17 CBC with Diff Sent. pf1 23:17 Urine Culture Sent. pf1 23:45 Lakhwinder Guillermo MD is Referral Physician. genna 23:45 Ricky Navarrete MD is Referral Physician. [facility] 11/09 00:00 Provided Education on: following up with urology. ha1 00:16 IV discontinued, intact, bleeding controlled, No redness/swelling at site. Pressure pf1 dressing applied. Administered Medications: 11/08 23:15 Drug: NS 0.9% IV 500 ml Route: IV; Rate: bolus; Site: right antecubital; pf1 11/09 00:02 Follow up: Response: No adverse reaction; Marked relief of symptoms; IV Status: pf1 Completed infusion; IV Intake: 500ml 11/08 23:16 Drug: Ciprofloxacin PO 500 mg Route: PO; pf1 11/09 00:02 Follow up: Response: No adverse reaction pf1 Medication: 00:00 VIS not applicable for this client. ha1 Intake: 00:02 IV: 500ml; Total: 500ml. pf1 Outcome: 11/08 22:50 Discharge ordered by . [facility] 23:46 Discharge ordered by . [facility] 11/09 00:16 Discharged to home ambulatory, with family. pf1 Condition: improved Discharge instructions given to patient, family, Instructed on discharge instructions, follow up and referral plans. Demonstrated understanding of instructions, follow-up care, medications, Prescriptions given X 2. 00:17 Patient left the ED. pf1 Signatures: Sanket, MD MD genna Shelley Kevin, MD MD kdr Rivera, Mary mr Serina, Corinne, RN RN ha1 Joan, Rylee Lopez, RN RN mb9 Isha Adams RN RN pf1
[2022-11-08] MEDS ORDERED: CIPROFLOXACIN HCL 500 MG TAB ONE (23:14)
[2022-11-08] MEDS ORDERED: NA CHLORIDE 0.9% 500 ML ONE (23:14)
[2022-11-08 23:26] LABS: Absolute Lymphocytes (CBC) 1.3 K/uL (0.7-4.9); Hematocrit 31.8 % (39.6-49.0); Lymphocytes % 11.4 % (15.3-44.8); MCV 86.6 fL (80-100); MPV 7.4 fL (7.6-11.3); RBC Red Blood Cell Count 3.67 M/uL (4.33-5.43)
[2022-11-08 23:43] LABS: Albumin 2.7 g/dL (3.4-5.0); Bilirubin Total 0.8 mg/dL (0.2-1.0); Potassium 3.7 mEq/L (3.5-5.1); Protein, Total 6.6 g/dL (6.4-8.2)
[2022-11-09 01:04] VITALS: TEMP 98
[2022-11-09 01:06] VITALS: O2SAT 100
[2022-11-09 01:09] VITALS: BP 114/69
== END 2022-11-09 00:17 | disposition home or self-care (01) ==
LOC: ER 17:50
DX: N18.9 Chronic kidney disease, unspecified (principal); F20.9 Schizophrenia, unspecified
CPT/HCPCS: 87088; 85025; 81001; 87086; 36415; 80053; 51702; 96360; 99285; J7040

== ENCOUNTER 2023-01-20 19:06 | Emergency (ER) | payer OTHER ==
--- OUTSIDE RECORDS SUMMARY | 2023-01-20 19:12 | XMS REPORT | Continuity of Care Document ---
:[address] [facility] t Address [address] [place] [address] Care Team Providers Name Role Phone Salinas [...] No Known DA Active U [facility] 7-12 [facility] s 00:00: d 00 [facility] Medications This patient has no known medications. Procedures This patient has no known procedures. Encounters Start End Encounter Admission Attending Care Care Encounter Source Date/Time Date/Time Type Type Clinicians Facility Department ID 2023-01-06 2023-01-11 Inpatient EM Fernanda [facility] MEDI.01 [id number] 54 [facility] 15:12:00 21:08:00 Salinas Dukes 41 [facility] 2022-10-16 2022-10-26 Inpatient EM Fernanda [facility] MEDI.01 [id number] 90 [facility] 05:03:00 19:41:00 Salinas Dukes 28 [facility] Results Test Description Test Time Test Comments Results Result Comments Source CBC W/AUTO DIFF 2023-01-09 08:15:00 Test Item Value Reference Range Interpretation Comme nts WHITE BLOOD CELL (test code = WBC) 7.3 x10 3/uL 4.5-11.0 N RED BLOOD CELL (test code = RBC) 3.69 x10 6/uL 4.00-5.60 L HEMOGLOBIN (test code = HGB) 10.4 g/dL 12.5-16.9 L HEMATOCRIT (test code = HCT) 32.8 % 37.5-50.7 L MEAN CELL VOLUME (test code = MCV) 88.9 fL 81.0-99.0 N MEAN CELL HGB (test code = MCH) 28.2 pg 27.0-33.0 N MEAN CELL HGB CONCETRATION (test code = MCHC) 31.7 g/dL 33.0-37. 0 L RED CELL DISTRIBUTION WIDTH CV (test code = RDW) 13.7 % 11.5- 14.5 N RED CELL DISTRIBUTION WIDTH SD (test code = RDW-SD) 44.6 fL 37 .0-54.0 N PLATELET COUNT (test code = PLT) 283 x10 3/uL 150-400 N MEAN PLATELET VOLUME (test code = MPV) 9.9 fL 7.0-9.0 H NEUTROPHIL % (test code = NT%) 62.0 % 56.0-77.0 N IMMATURE GRANULOCYTE % (test code = IG%) 0.7 % 0.0-2.0 N LYMPHOCYTE % (test code = LY%) 20.8 % 14.0-32.0 N MONOCYTE % (test code = MO%) 7.7 % 4.8-9.0 N EOSINOPHIL % (test code = EO%) 8.1 % 0.3-3.7 H BASOPHIL % (test code = BA%) 0.7 % 0.0-2.0 N NUCLEATED RBC % (test code = NRBC%) 0.0 % 0-0 N NEUTROPHIL # (test code = NT#) 4.51 x10 3/uL 2.0-7.6 N IMMATURE GRANULOCYTE # (test code = IG#) 0.05 x10 3/uL 0.00-0.03 H LYMPHOCYTE # (test code = LY#) 1.51 x10 3/uL 1.0-3.8 N MONOCYTE # (test code = MO#) 0.56 x10 3/uL 0.1-0.8 N EOSINOPHIL # (test code = EO#) 0.59 x10 3/uL 0.0-0.2 H BASOPHIL # (test code = BA#) 0.05 x10 3/uL 0.0-0.2 N NUCLEATED RBC # (test code = NRBC#) 0.00 x10 3/uL 0.0-0.1 N BASIC METABOLIC [id number] 07:28:00 Test Item Value Reference Range Interpretation Comments SODIUM (test code = 139 mEq/L 134-147 N NA) POTASSIUM (test code 4.2 mEq/L 3.4-5.0 N = K) CHLORIDE (test code 105 mEq/L 100-108 N = CL) CARBON DIOXIDE (test 27 mEq/l 21-33 N code = CO2) ANION GAP (test code 11 0-20 N = GAP) GLUCOSE (test code = 106 mg/dL 77-141 N NOTE: N EW NORMAL RANGE GLU) BLOOD UREA NITROGEN 12 mg/dL 7-25 N NOTE: NE W NORMAL RANGE (test code = BUN) GLOMERULAR 84.6 80-90 [...] recommended for jose miguel for GFRby the [facility] on for Adults.The GFR will not calculate if th e sex is unknown or if thepatient's ag e is <18 years. CREATININE (test 1.0 mg/dL 0.6-1.3 N code = CREAT) CALCIUM (test code = 8.6 mg/dL 8.0-10.5 N CA) BASIC METABOLIC [id number] 07:46:00 Test Item Value Reference Range Interpretation Comments SODIUM (test code = 139 mEq/L 134-147 N NA) POTASSIUM (test code 4.4 mEq/L 3.4-5.0 N = K) CHLORIDE (test code 105 mEq/L 100-108 N = CL) CARBON DIOXIDE (test 28 mEq/l 21-33 N code = CO2) ANION GAP (test code 11 0-20 N = GAP) GLUCOSE (test code = 91 mg/dL 77-141 N NOTE: N EW NORMAL RANGE GLU) BLOOD UREA NITROGEN 9 mg/dL 7-25 N NOTE: NE W NORMAL RANGE (test code = BUN) GLOMERULAR 99.4 80-90 [...] recommended for jose miguel for GFRby the [facility] on for Adults.The GFR will not calculate if th e sex is unknown or if thepatient's ag e is <18 years. CREATININE (test 0.8 mg/dL 0.6-1.3 N code = CREAT) CALCIUM (test code = 8.7 mg/dL 8.0-10.5 N CA) CBC W/AUTO [id number] 07:34:00 Test Item Value Reference Range Interpretation Comments WHITE BLOOD CELL (test code = 6.5 x10 3/uL 4.5-11.0 N WBC) RED BLOOD CELL (test code = 3.55 x10 6/uL 4.00-5.60 L RBC) HEMOGLOBIN (test code = HGB) 10.1 g/dL 12.5-16.9 L HEMATOCRIT (test code = HCT) 31.7 % 37.5-50.7 L MEAN CELL VOLUME (test code = 89.3 fL 81.0-99.0 N MCV) MEAN CELL HGB (test code = MCH) 28.5 pg 27.0-33.0 N MEAN CELL HGB CONCETRATION 31.9 g/dL 33.0-37.0 L (test code = MCHC) RED CELL DISTRIBUTION WIDTH CV 13.6 % 11.5-14.5 N (test code = RDW) RED CELL DISTRIBUTION WIDTH SD 45.1 fL 37.0-54.0 N (test code = RDW-SD) PLATELET COUNT (test code = 257 x10 3/uL 150-400 N PLT) MEAN PLATELET VOLUME (test code 10.2 fL 7.0-9.0 H = MPV) NEUTROPHIL % (test code = NT%) 59.5 % 56.0-77.0 N IMMATURE GRANULOCYTE % (test 0.5 % 0.0-2.0 N code = IG%) LYMPHOCYTE % (test code = LY%) 22.3 % 14.0-32.0 N MONOCYTE % (test code = MO%) 6.9 % 4.8-9.0 N EOSINOPHIL % (test code = EO%) 9.9 % 0.3-3.7 H BASOPHIL % (test code = BA%) 0.9 % 0.0-2.0 N NUCLEATED RBC % (test code = 0.0 % 0-0 N NRBC%) NEUTROPHIL # (test code = NT#) 3.89 x10 3/uL 2.0-7.6 N IMMATURE GRANULOCYTE # (test 0.03 x10 3/uL 0.00-0.03 N code = IG#) LYMPHOCYTE # (test code = LY#) 1.46 x10 3/uL 1.0-3.8 N MONOCYTE # (test code = MO#) 0.45 x10 3/uL 0.1-0.8 N EOSINOPHIL # (test code = EO#) 0.65 x10 3/uL 0.0-0.2 H BASOPHIL # (test code = BA#) 0.06 x10 3/uL 0.0-0.2 N NUCLEATED RBC # (test code = 0.00 x10 3/uL 0.0-0.1 N NRBC#) CBC W/AUTO [id number] 08:43:00 Test Item Value Reference Range Interpretation Comments WHITE BLOOD CELL (test code = 5.9 x10 3/uL 4.5-11.0 N WBC) RED BLOOD CELL (test code = 3.23 x10 6/uL 4.00-5.60 L RBC) HEMOGLOBIN (test code = HGB) 9.2 g/dL 12.5-16.9 L HEMATOCRIT (test code = HCT) 29.2 % 37.5-50.7 L MEAN CELL VOLUME (test code = 90.4 fL 81.0-99.0 N MCV) MEAN CELL HGB (test code = MCH) 28.5 pg 27.0-33.0 N MEAN CELL HGB CONCETRATION 31.5 g/dL 33.0-37.0 L (test code = MCHC) RED CELL DISTRIBUTION WIDTH CV 13.8 % 11.5-14.5 N (test code = RDW) RED CELL DISTRIBUTION WIDTH SD 45.8 fL 37.0-54.0 N (test code = RDW-SD) PLATELET COUNT (test code = 205 x10 3/uL 150-400 N PLT) MEAN PLATELET VOLUME (test code 10.8 fL 7.0-9.0 H = MPV) NEUTROPHIL % (test code = NT%) 60.1 % 56.0-77.0 N IMMATURE GRANULOCYTE % (test 0.3 % 0.0-2.0 N code = IG%) LYMPHOCYTE % (test code = LY%) 21.2 % 14.0-32.0 N MONOCYTE % (test code = MO%) 7.2 % 4.8-9.0 N EOSINOPHIL % (test code = EO%) 10.4 % 0.3-3.7 H BASOPHIL % (test code = BA%) 0.8 % 0.0-2.0 N NUCLEATED RBC % (test code = 0.0 % 0-0 N NRBC%) NEUTROPHIL # (test code = NT#) 3.56 x10 3/uL 2.0-7.6 N IMMATURE GRANULOCYTE # (test 0.02 x10 3/uL 0.00-0.03 N code = IG#) LYMPHOCYTE # (test code = LY#) 1.26 x10 3/uL 1.0-3.8 N MONOCYTE # (test code = MO#) 0.43 x10 3/uL 0.1-0.8 N EOSINOPHIL # (test code = EO#) 0.62 x10 3/uL 0.0-0.2 H BASOPHIL # (test code = BA#) 0.05 x10 3/uL 0.0-0.2 N NUCLEATED RBC # (test code = 0.00 x10 3/uL 0.0-0.1 N NRBC#) MANUAL DIFF REQUIRED (test code NO = MDIFF) BASIC METABOLIC [id number] 07:14:00 Test Item Value Reference Range Interpretation Comments SODIUM (test code = 138 mEq/L 134-147 N NA) POTASSIUM (test code 4.0 mEq/L 3.4-5.0 N = K) CHLORIDE (test code 104 mEq/L 100-108 N = CL) CARBON DIOXIDE (test 26 mEq/l 21-33 N code = CO2) ANION GAP (test code 12 0-20 N = GAP) GLUCOSE (test code = 91 mg/dL 77-141 N NOTE: N EW NORMAL RANGE GLU) BLOOD UREA NITROGEN 14 mg/dL 7-25 N NOTE: NE W NORMAL RANGE (test code = BUN) GLOMERULAR 99.4 80-90 [...] recommended for jose miguel for GFRby the [facility] for Adults.The GFR will not calculate if th e sex is unknown or if thepatient's ag e is <18 years. CREATININE (test 0.8 mg/dL 0.6-1.3 N code = CREAT) CALCIUM (test code = 7.8 mg/dL 8.0-10.5 L CA) CBC W/AUTO [id number] 08:58:00 Test Item Value Reference Range Interpretation Comments WHITE BLOOD CELL (test code = 9.7 x10 3/uL 4.5-11.0 WBC) RED BLOOD CELL (test code = 3.36 x10 6/uL 4.00-5.60 L RBC) HEMOGLOBIN (test code = HGB) 9.7 g/dL 12.5-16.9 L HEMATOCRIT (test code = HCT) 30.1 % 37.5-50.7 L MEAN CELL VOLUME (test code = 89.6 fL 81.0-99.0 N MCV) MEAN CELL HGB (test code = MCH) 28.9 pg 27.0-33.0 N MEAN CELL HGB CONCETRATION 32.2 g/dL 33.0-37.0 L (test code = MCHC) RED CELL DISTRIBUTION WIDTH CV 14.2 % 11.5-14.5 N (test code = RDW) RED CELL DISTRIBUTION WIDTH SD 46.5 fL 37.0-54.0 N (test code = RDW-SD) PLATELET COUNT (test code = 187 x10 3/uL 150-400 N PLT) MEAN PLATELET VOLUME (test code 10.9 fL 7.0-9.0 H = MPV) NEUTROPHIL % (test code = NT%) 76.7 % 56.0-77.0 N IMMATURE GRANULOCYTE % (test 0.4 % 0.0-2.0 N code = IG%) LYMPHOCYTE % (test code = LY%) 11.8 % 14.0-32.0 L MONOCYTE % (test code = MO%) 7.5 % 4.8-9.0 N EOSINOPHIL % (test code = EO%) 3.2 % 0.3-3.7 N BASOPHIL % (test code = BA%) 0.4 % 0.0-2.0 N NUCLEATED RBC % (test code = 0.0 % 0-0 N NRBC%) NEUTROPHIL # (test code = NT#) 7.43 x10 3/uL 2.0-7.6 N IMMATURE GRANULOCYTE # (test 0.04 x10 3/uL 0.00-0.03 H code = IG#) LYMPHOCYTE # (test code = LY#) 1.14 x10 3/uL 1.0-3.8 N MONOCYTE # (test code = MO#) 0.73 x10 3/uL 0.1-0.8 N EOSINOPHIL # (test code = EO#) 0.31 x10 3/uL 0.0-0.2 H BASOPHIL # (test code = BA#) 0.04 x10 3/uL 0.0-0.2 N NUCLEATED RBC # (test code = 0.00 x10 3/uL 0.0-0.1 N NRBC#) MANUAL DIFF REQUIRED (test code NO = MDIFF) BASIC METABOLIC [id number] 08:27:00 Test Item Value Reference Range Interpretation Comments SODIUM (test code = 139 mEq/L 134-147 N NA) POTASSIUM (test code 4.0 mEq/L 3.4-5.0 N = K) CHLORIDE (test code 103 mEq/L 100-108 N = CL) CARBON DIOXIDE (test 29 mEq/l 21-33 N code = CO2) ANION GAP (test code 11 0-20 N = GAP) GLUCOSE (test code = 106 mg/dL 77-141 N NOTE: N EW NORMAL RANGE GLU) BLOOD UREA NITROGEN 17 mg/dL 7-25 N NOTE: NE W NORMAL RANGE (test code = BUN) GLOMERULAR 96.0 80-90 [...] code = CREAT) CALCIUM (test code = 8.2 mg/dL 8.0-10.5 N CA) [id number] 08:34:00 Test Item Value Reference Range Interpretation Comments HGBA1C% (test code = HGBA1C%) 5.1 %A1C 4.8-6.0 N CBC W/AUTO [id number] 08:05:00 Test Item Value Reference Range Interpretation Comments WHITE BLOOD CELL (test code = 18.1 x10 3/uL 4.5-11.0 H WBC) RED BLOOD CELL (test code = 3.93 x10 6/uL 4.00-5.60 L RBC) HEMOGLOBIN (test code = HGB) 11.4 g/dL 12.5-16.9 L HEMATOCRIT (test code = HCT) 34.2 % 37.5-50.7 L MEAN CELL VOLUME (test code = 87.0 fL 81.0-99.0 N MCV) MEAN CELL HGB (test code = 29.0 pg 27.0-33.0 N MCH) MEAN CELL HGB CONCETRATION 33.3 g/dL 33.0-37.0 N (test code = MCHC) RED CELL DISTRIBUTION WIDTH CV 14.0 % 11.5-14.5 N (test code = RDW) RED CELL DISTRIBUTION WIDTH SD 45.0 fL 37.0-54.0 N (test code = RDW-SD) PLATELET COUNT (test code = 224 x10 3/uL 150-400 N PLT) MEAN PLATELET VOLUME (test 10.7 fL 7.0-9.0 H code = MPV) NEUTROPHIL % (test code = NT%) 88.4 % 56.0-77.0 H IMMATURE GRANULOCYTE % (test 0.5 % 0.0-2.0 N code = IG%) LYMPHOCYTE % (test code = LY%) 4.5 % 14.0-32.0 L MONOCYTE % (test code = MO%) 6.1 % 4.8-9.0 N EOSINOPHIL % (test code = EO%) 0.3 % 0.3-3.7 N BASOPHIL % (test code = BA%) 0.2 % 0.0-2.0 N NUCLEATED RBC % (test code = 0.0 % 0-0 N NRBC%) NEUTROPHIL # (test code = NT#) 15.99 x10 3/uL 2.0-7.6 H IMMATURE GRANULOCYTE # (test 0.09 x10 3/uL 0.00-0.03 H code = IG#) LYMPHOCYTE # (test code = LY#) 0.82 x10 3/uL 1.0-3.8 L MONOCYTE # (test code = MO#) 1.10 x10 3/uL 0.1-0.8 H EOSINOPHIL # (test code = EO#) 0.05 x10 3/uL 0.0-0.2 N BASOPHIL # (test code = BA#) 0.03 x10 3/uL 0.0-0.2 N NUCLEATED RBC # (test code = 0.00 x10 3/uL 0.0-0.1 N NRBC#) MANUAL DIFF REQUIRED (test NO code = MDIFF) BASIC METABOLIC [id number] 07:46:00 Test Item Value Reference Range Interpretation Comments SODIUM (test code = 132 mEq/L 134-147 L NA) POTASSIUM (test code 4.2 mEq/L 3.4-5.0 N = K) CHLORIDE (test code 99 mEq/L 100-108 L = CL) CARBON DIOXIDE (test 24 mEq/l 21-33 N code = CO2) ANION GAP (test code 14 0-20 N = GAP) GLUCOSE (test code = 120 mg/dL 77-141 N NOTE: N EW NORMAL RANGE GLU) BLOOD UREA NITROGEN 15 mg/dL 7-25 N NOTE: NE W NORMAL RANGE (test code = BUN) GLOMERULAR 75.4 80-90 [...] code = CREAT) CALCIUM (test code = 8.6 mg/dL 8.0-10.5 N CA) LIPID PROFILE (CORONARY RISK)2023-01-05 07:46:00 Test Item Value Reference Range Interpretation Comments TRIGLYCERIDES (test 90 mg/dL 40-150 N code = TRIG) CHOLESTEROL (test 178 mg/dL <200 code = CHOL) CHOLESTEROL/HDL 2.79 RATIO 3.43-4.97 L RISK ASSOCIA MALGORZATA WITH RATIO (test code = CHOL/HDL RATIOS: RISK CHOLHDL) MALE FEMALE1/2 AVERAGE 3.43 3.27AVERA GE 4.97 4.442X AVERAGE 9.55 7.053X AVERAGE 23.39 11.04 NOTE THAT THE REFERENCE VALUE IS RELATEDTO RISK LEVELS RECOMMENDED BY THE NATL.HEART, JACKELINE G, AND BLOOD INST. HDL CHOLESTEROL 63.8 MG/DL 40-60 H Note guajardo e in (test code = HDL) REFERENCE RANGE due to change in REAGENT.HDL Interpretation < 40.0 mg/dL Low (undesirable, h igh risk)> 60.0 mg/ dL High (desirable, low risk) Reference inter uday for healthy adults was established by theNational Cholesterol Edu cation Program (NCEP). LIPOPROTEIN LDL 104.0 mg/dL 0-100 H <100 OPTIMAL 100-129 (test code = LDL) NEAR OPTIM AL/ABOVE [id number] HIGH>MT=089 BRIELLE Y HIGH*Guidelines provided by the National Choles terol EducationProgra m Adult Treatment Panel III [id number] 07:46:00 Test Item Value Reference Range Interpretation Comments PHOSPHOROUS (test code = PHOS) 3.4 MG/DL 2.5-4.9 N [id number] 07:46:00 Test Item Value Reference Range Interpretation Comments MAGNESIUM (test code = 1.69 mg/dL 1.6-2.6 N NOTE: NEW NORMAL MAG) RANGE TSH REFLEX TO [id number] 07:46:00 Test Item Value Reference Range Interpretation Comments TSH REFLEX TO FT4 (test code = 2.37 IU/mL 0.42-5.47 N TSHREFLEX) LACTIC [id number] 05:48:00 Test Item Value Reference Range Interpretation Comments LACTIC ACID (test code = LACT) 1.1 mmol/L 0.4-1.9 N LACTIC ACID [id number] 02:38:00 Test Item Value Reference Range Interpretation Comments LACTIC ACID REPEAT (test code = 0.9 mmol/l 0.4-1.9 N LACTR) CALLED SEVERINO @01:18 TO REMIND WE NEEDED REPEATLACTIC [id number] 22:36:00 Test Item Value Reference Range Interpretation Comments LACTIC ACID (test code = LACT) 2.9 mmol/L 0.4-1.9 H UA RFLX MICR CULT IF [id number] 22:35:00 Test Item Value Reference Range Interpretation Comments UA COLOR (test code = COLU) RED YEL/STRAW A UA APPEARANCE (test code = CLOUDY CLEAR A APPU) UA GLUCOSE DIPSTICK (test code NEGATIVE NEGATIVE = DGLUU) UA BILIRUBIN DIPSTICK (test NEGATIVE NEGATIVE code = BILU) UA KETONE DIPSTICK (test code NEGATIVE NEGATIVE = KETU) UA SPECIFIC GRAVITY (test code 1.005 1.005-1.030 N = SGU) UA BLOOD DIPSTICK (test code = 2+ NEGATIVE A ROXANA) UA PH DIPSTICK (test code = 7.0 5.0-7.0 N FORREST) UA PROTEIN DIPSTICK (test code 2+ NEGATIVE A = PROU) UA UROBILINIOGEN DIPSTICK 0.2 mg/dL 0.2-1.0 (test code = URO) UA NITRITE DIPSTICK (test code NEGATIVE NEGATIVE = CR) UA LEUKOCYTE ESTERASE DIPSTICK TRACE NEGATIVE A (test code = LEUU) UA WBC (test code = WBCU) >50 WBC/HPF 0-3 A UA RBC (test code = RBCU) >50 RBC/HPF 0-3 A UA WBC NO REFLEX (test code = >50 WBC/HPF 0-3 A WBCUCL) UA BACTERIA (test code = BACU) NONE SEEN /HPF NONE SEEN UA SQUAMOUS CELLS (test code = NONE SEEN /HPF NONE SEEN SQU) UA CALCIUM OXALATE CRYSTALS 4+ /HPF NONE SEEN A (test code = CAOXU) UA YEAST (BUDDING) (test code 2+ /HPF NONE A = YEASTUBD) Indication for culture: Flank PainSpecimen Description: INDWELLING CATH (BLACK)Cath Status: Less than 14 days- CT ABD PELVIS [id number] 22:24:00 [facility] : 1960 Sex: M Name: YUKI CASTILLOYENNI POST [facility] : 1960 Age/S: 62 / M [address] [place] [address] Unit #: [id number] Loc: [place] [address] Phys: Vee Horton APRNNP Acct: [id number] Dis Date: Status: REG ER PHONE #: [phone] Exam Date: 01/04/2023939 FAX #: [phone] Reason: GROSS HEMATURIA EXAMS: CPT CODE: [id number] CT ABD PELVIS W/CONT [id number] H 20 TIME OF STUDY: 01/04/2023 7:55PM REASON FOR EXAM: GROSS HEMATURIA COMPARISON: None. TECHNIQUE: Helical post contrast enhanced images were obtained through the abdomen and pelvis. Sagittal and coronal reformats were obtained and reviewed. One or more of the following radiation dose reduction techniques was used: automated exposurecontrol, adjustment of mA and/or KV according to patient size, and/or utilization of iterative reconstruction technique. FINDINGS: CT Abdomen: The included lung bases are clear. There is a moderate hiatal hernia. Gallbladder is mildly distended. There is cholelithiasis present. The liver, pancreas, kidneys, adrenal glands and spleen all have normal appearance. There is no mesenteric or retroperitoneal adenopathy. The bowel loops are nondilated. A normal appendix is visualized. There is no free fluid or free air. The osseous structures are age-appropriate. CT Pelvis: Bladder is decompressed with a Black in place which significantly limits evaluation. The prostate gland is severely enlarged measuring approximately 7.4 x 6.2 cm in maximum dimension. Surgical clips are noted in the prostate. IMPRESSION: 1. Prostatomegaly. Decompressed bladder with a Black in place. 2. No hydronephrosis. No enhancing renal masses. 3. Cholelithiasis and mildly distended gallbladder. 4. Moderate hiatal hernia. PAGE 1 Signed Report (CONTINUED) Name: OSMAR CASTILLO [facility] : 1960 Age/S: 62 / M [address] [place] [address] Unit #: [id number] Loc: [place] [address] Phys: Vee Horton APRNNP Acct: [id number] Dis Date: Status: [facility] ER PHONE #: [phone] Exam Date: 01/04/2023939 FAX #: [phone] Reason: GROSS HEMATURIA EXAMS: CPT CODE: [id number] CT ABD PELVIS W/CONT 19832 (Continued) at 2224 Reported and signed by: Zia Magaña M.D. CC: Lakhwinder Guillermo MD; Vee Horton; Javier Sullivan MD Technologist:Latoya Moeller, RT(R); Lesvia Humphries CTDI: DLP: Trnscb Date/Time: 01/04/2023 (2223) [email or web address] Orig Print D/T: S: 01/04/2023 (2226) PAGE 2 Signed ReportCOMPREHENSIVE METABOLIC [id number] 21:07:00 Test Item Value Reference Range Interpretation Comments SODIUM (test code = 133 mEq/L 134-147 L NA) POTASSIUM (test code 4.2 mEq/L 3.4-5.0 N = K) CHLORIDE (test code 98 mEq/L 100-108 L = CL) CARBON DIOXIDE (test 28 mEq/l 21-33 N code = CO2) ANION GAP (test code 12 0-20 N = GAP) GLUCOSE (test code = 138 mg/dL 77-141 N NOTE: N EW NORMAL RANGE GLU) BLOOD UREA NITROGEN 17 mg/dL 7-25 N NOTE: NE W NORMAL RANGE (test code = BUN) GLOMERULAR 68.0 80-90 L The Glomerular FILTRATION RATE Filtration [...] recommended for jose miguel for GFRby the Nat [facility] on for Adults.The GFR will not calculate if th e sex is unknown or if thepatient's ag e is <18 years. CREATININE (test 1.2 mg/dL 0.6-1.3 N code = CREAT) TOTAL PROTEIN (test 7.8 g/dL 6.4-8.2 N code = PROT) ALBUMIN (test code = 4.10 g/dL 3.4-5.0 N ALB) CALCIUM (test code = 9.1 mg/dL 8.0-10.5 N CA) BILIRUBIN TOTAL 1.00 mg/dL 0.0-1.0 N (test code = BILT) SGOT/AST (test code 19 IUnit/L 8-34 N NOTE: NE W NORMAL RANGE = AST) SGPT/ALT (test code 11 IUnit/L 10-49 N NOTE: NE W NORMAL RANGE = ALT) ALKALINE PHOSPHATASE 60 IUnit/L 20-125 N TOTAL (test code = ALKP) CBC W/AUTO [id number] 20:38:00 Test Item Value Reference Range Interpretation Comments WHITE BLOOD CELL (test code = 16.7 x10 3/uL 4.5-11.0 H WBC) RED BLOOD CELL (test code = 4.58 x10 6/uL 4.00-5.60 N RBC) HEMOGLOBIN (test code = HGB) 13.1 g/dL 12.5-16.9 N HEMATOCRIT (test code = HCT) 39.8 % 37.5-50.7 N MEAN CELL VOLUME (test code = 86.9 fL 81.0-99.0 N MCV) MEAN CELL HGB (test code = 28.6 pg 27.0-33.0 N MCH) MEAN CELL HGB CONCETRATION 32.9 g/dL 33.0-37.0 L (test code = MCHC) RED CELL DISTRIBUTION WIDTH CV 13.9 % 11.5-14.5 N (test code = RDW) RED CELL DISTRIBUTION WIDTH SD 44.2 fL 37.0-54.0 N (test code = RDW-SD) PLATELET COUNT (test code = 268 x10 3/uL 150-400 N PLT) MEAN PLATELET VOLUME (test 10.3 fL 7.0-9.0 H code = MPV) NEUTROPHIL % (test code = NT%) 88.4 % 56.0-77.0 H IMMATURE GRANULOCYTE % (test 0.7 % 0.0-2.0 N code = IG%) LYMPHOCYTE % (test code = LY%) 5.4 % 14.0-32.0 L MONOCYTE % (test code = MO%) 5.3 % 4.8-9.0 N EOSINOPHIL % (test code = EO%) 0.0 % 0.3-3.7 L BASOPHIL % (test code = BA%) 0.2 % 0.0-2.0 N NUCLEATED RBC % (test code = 0.0 % 0-0 N NRBC%) NEUTROPHIL # (test code = NT#) 14.77 x10 3/uL 2.0-7.6 H IMMATURE GRANULOCYTE # (test 0.11 x10 3/uL 0.00-0.03 H code = IG#) LYMPHOCYTE # (test code = LY#) 0.90 x10 3/uL 1.0-3.8 L MONOCYTE # (test code = MO#) 0.89 x10 3/uL 0.1-0.8 H EOSINOPHIL # (test code = EO#) 0.00 x10 3/uL 0.0-0.2 N BASOPHIL # (test code = BA#) 0.04 x10 3/uL 0.0-0.2 N NUCLEATED RBC # (test code = 0.00 x10 3/uL 0.0-0.1 N NRBC#) MANUAL DIFF REQUIRED (test NO code = MDIFF) BASIC METABOLIC [id number] 08:30:00 Test Item Value Reference Range Interpretation Comments SODIUM (test code = 140 mEq/L 134-147 N NA) POTASSIUM (test code 2.8 mEq/L 3.4-5.0 LL Critica l result called = K) [place] [address]/16/22Nurse r ead back resut and tech confirmed it's correct? Y CHLORIDE (test code 114 mEq/L 100-108 H = CL) CARBON DIOXIDE (test 18 mEq/l 21-33 L code = CO2) ANION GAP (test code 11 0-20 N = GAP) GLUCOSE (test code = 643 mg/dL 70-110 HH Critica l result called GLU) [place] [address]/16/22Nurse r ead back resut and tech confirmed it's correct? Y BLOOD UREA NITROGEN 41 mg/dL 7-18 H (test code = BUN) GLOMERULAR 34.7 80-90 L The Glomerular FILTRATION RATE Filtration [...] recommended for jose miguel for [facility]FRby the [facility].The GFR will not calculate if th e sex is unknown or if thepatient's ag e is <18 years. CREATININE (test 2.1 mg/dL 0.6-1.3 H code = CREAT) CALCIUM (test code = 4.9 mg/dL 8.0-10.5 LL Critica l result called CA) to Brigido [id number] at 09 1510/16/22Nurse r ead back result and tech confirmed it's correct? YPreviously rep orted result: 4.9 mg/ dLEdited by: [email or web address] o n 10/31/22:[id number] 0829: CA previo usly reported as: 4. 9 *L mg/dL Critical result [place] N[id number] [address]/16/22 N eligio read back result and tech confirmed it's correct? Y GLUCOSE [id number] 17:27:00 Test Item Value Reference Range Interpretation Comments GLUCOSE BEDSIDE (test 109 MG/DL 70-110 N Perfor med by certified code = GLUBED) contact acid plant operator at [facility] GLUCOSE [id number] 12:34:00 Test Item Value Reference Range Interpretation Comments GLUCOSE BEDSIDE (test 95 MG/DL 70-110 N Perfor med by certified code = GLUBED) contact acid plant operator at [facility] GLUCOSE [id number] 08:49:00 Test Item Value Reference Range Interpretation Comments GLUCOSE BEDSIDE (test 117 MG/DL 70-110 H Perfor med by certified code = GLUBED) contact acid plant operator at [facility] BASIC METABOLIC [id number] 07:57:00 Test Item Value Reference Range Interpretation [...] recommended for jose miguel for GFRby the [facility].The GFR will not calculate if th e sex is unknown or if thepatient's ag e is <18 years. CREATININE (test 1.0 mg/dL 0.6-1.3 N code = CREAT) CALCIUM (test code = 8.1 mg/dL 8.0-10.5 N CA) GLUCOSE [id number] 17:07:00 Test Item Value Reference Range Interpretation Comments GLUCOSE BEDSIDE (test 127 MG/DL 70-110 H Perfor med by certified code = GLUBED) contact acid plant operator at [facility] GLUCOSE [id number] 12:26:00 Test Item Value Reference Range Interpretation Comments GLUCOSE BEDSIDE (test 123 MG/DL 70-110 H Perfor med by certified code = GLUBED) contact acid plant operator at [facility] GLUCOSE [id number] 07:59:00 Test Item Value Reference Range Interpretation Comments GLUCOSE BEDSIDE (test 92 MG/DL 70-110 N Perfor med by certified code = GLUBED) contact acid plant operator at [facility] BASIC METABOLIC [id number] 07:38:00 Test Item Value Reference Range Interpretation [...] recommended for jose miguel for GFRby the [facility] for Adults.The GFR will not calculate if th e sex is unknown or if thepatient's ag e is <18 years. CREATININE (test 0.9 mg/dL 0.6-1.3 N code = CREAT) CALCIUM (test code = 7.8 mg/dL 8.0-10.5 L CA) CBC W/AUTO [id number] 07:27:00 Test Item Value Reference Range Interpretation [...] REQUIRED (test NO code = MDIFF) GLUCOSE [id number] 21:25:00 Test Item Value Reference Range Interpretation Comments GLUCOSE BEDSIDE (test 154 MG/DL 70-110 H Perfor med by certified code = GLUBED) contact acid plant operator at [facility] GLUCOSE [id number] 17:43:00 Test Item Value Reference Range Interpretation Comments GLUCOSE BEDSIDE (test 73 MG/DL 70-110 N Perfor med by certified code = GLUBED) contact acid plant operator at [facility] GLUCOSE [id number] 10:08:00 Test Item Value Reference Range Interpretation Comments GLUCOSE BEDSIDE (test 87 MG/DL 70-110 N Perfor med by certified code = GLUBED) contact acid plant operator at [facility] GLUCOSE [id number] 20:12:00 Test Item Value Reference Range Interpretation Comments GLUCOSE BEDSIDE (test 139 MG/DL 70-110 H Perfor med by certified code = GLUBED) contact acid plant operator at [facility] GLUCOSE [id number] 17:32:00 Test Item Value Reference Range Interpretation Comments GLUCOSE BEDSIDE (test 79 MG/DL 70-110 N Perfor med by certified code = GLUBED) contact acid plant operator at [facility] GLUCOSE [id number] 12:14:00 Test Item Value Reference Range Interpretation Comments GLUCOSE BEDSIDE (test 98 MG/DL 70-110 N Perfor med by certified code = GLUBED) contact acid plant operator at [facility] GLUCOSE [id number] 08:36:00 Test Item Value Reference Range Interpretation Comments GLUCOSE BEDSIDE (test 92 MG/DL 70-110 N Perfor med by certified code = GLUBED) contact acid plant operator at [facility] BASIC METABOLIC [id number] 07:50:00 Test Item Value Reference Range Interpretation [...] recommended for jose miguel for GFRby the [facility].The GFR will not calculate if th e sex is unknown or if thepatient's ag e is <18 years. CREATININE (test 1.0 mg/dL 0.6-1.3 N code = CREAT) CALCIUM (test code = 7.6 mg/dL 8.0-10.5 L CA) [id number] 07:50:00 Test Item Value Reference Range Interpretation Comments MAGNESIUM (test code = MAG) 1.53 mg/dL 1.80-2.40 L - CTA CHEST FOR [id number] 00:00:00 [facility] : 1960 Sex: M Name: OSMAR CASTILLO [facility] : 1960 Age/S: 62 / M [address] [place] [address] BlvdUnit #: [id number] Loc: [place] [address] Phys: Sofia Cheng APPRENTICE PAINTER HAND Acct: [id number] Dis Date: Status: ADM IN PHONE #: [phone] Exam Date: 10/23/2022 1724 FAX #: [phone] Reason: ELEVATED D DIMER EXAMS: CPT CODE: [id number] [place] [id number] PROCEDURE INFORMATION: Exam: CTA Chest With Con trast Exam date and time: 10/23/2022 5:24 PM Age: 62 years old Clinical indication: Condition or disease; Other: Elevated d dimer TECHNIQUE: Imaging protocol: Computed tomographic angiography of the chest with contrast. Exam focused on the arteries. 3D rendering (Not supervised by radiologist): MIP an d/or 3D reconstructed images were created by the technologist. Radiation optimization: All CT scans at this facility use at least one of these dose optimization techniques: automated exposure control; mA and/or kV adjustment per patient size (includes targeted exams where dose is matched to clinical in dication); or iterative reconstruction. Contrast material: ISOVUE; Contrast volume: 100 ml; Contrastroute: INTRAVENOUS (IV); REPORTING DATA: Count of CT and Cardiac NM exams in prior 12 months: This patient has received [address] and 0 known cardiac nuclear medicine studies in the 12 months prior tothe current study. COMPARISON: CT CHEST W/CONTRAST, CT ABD PELVIS W/CONT 10/15/2022 9:14 PM FINDINGS:Pulmonary arteries: No pulmonary embolus. Aorta: Unremarkable. No [...] Extensive colonic wall thickening of the visualized sp lenic PAGE 1 Signed Report (CONTINUED) Name: OSMAR CASTILLO [facility] : 1960 Age/S: 62 / M [address] [place] [address] Blvd Unit #: [id number] Loc: [place] [address] Phys: Sofia Cheng NP Acct: [id number] Dis Date: Status: ADM IN PHONE #: [phone] Exam Date: 10/23/2022 172 FAX #: [phone] Reason: ELEVATED D DIMER EXAMS: CPT CODE: [id number] [place] [address] (Continued) flexure compatible with colitis incompletely evaluated. 3. Small right pleural effusion with right lower lobe atelectasis. 4. Left upper lobe bronchiectasis. 5. Minimal anterior pericardial effusion. 6. Type 4 hiatal hernia measures 7.6 cm X 6.5 cm. 7. Gastric fundal wall thickening, correlation with recent endoscopy is recommended to help exclude an infiltrating mucosal process. ElectronicallySigned by Perla Rg on 10/23/2022 at 2013 Reported and signed by: Hayden Rg M.D. CC: Sofia Cheng NP; Salinas Dukes MD Technologist:Latoya Beto, RT(R)(CT); . CTDI: DLP: Trnscb Date/Time: 10/23/2022 (2012) tJosé [email or web address] Orig Print D/T: S: 10/23/2022 (2012) PAGE 2 Signed ReportGLUCOSE [id number] 20:23:00 Test Item Value Reference Range Interpretation Comments GLUCOSE BEDSIDE (test 123 MG/DL 70-110 H Perfor med by certified code = GLUBED) contact acid plant operator at [facility] GLUCOSE [id number] 17:34:00 Test Item Value Reference Range Interpretation Comments GLUCOSE BEDSIDE (test 132 MG/DL 70-110 H Perfor med by certified code = GLUBED) contact acid plant operator at [facility] GLUCOSE [id number] 11:57:00 Test Item Value Reference Range Interpretation Comments GLUCOSE BEDSIDE (test 118 MG/DL 70-110 H Perfor med by certified code = GLUBED) contact acid plant operator at [facility] GLUCOSE [id number] 08:22:00 Test Item Value Reference Range Interpretation Comments GLUCOSE BEDSIDE (test 100 MG/DL 70-110 N Perfor med by certified code = GLUBED) contact acid plant operator at [facility] BASIC METABOLIC [id number] 08:05:00 Test Item Value Reference Range Interpretation [...] race indifferent and is the recommended for [facility] for GFRby the [facility] for Adults.The GFR will not calculate if th e sex is unknown or if thepatient's ag e is <18 years. CREATININE (test 1.1 mg/dL 0.6-1.3 N code = CREAT) CALCIUM (test code = 7.8 mg/dL 8.0-10.5 L CA) [id number] 08:05:00 Test Item Value Reference Range Interpretation Comments MAGNESIUM (test code = MAG) 1.72 mg/dL 1.80-2.40 L GLUCOSE [id number] 21:10:00 Test Item Value Reference Range Interpretation Comments GLUCOSE BEDSIDE (test 148 MG/DL 70-110 H Perfor med by certified code = GLUBED) contact acid plant operator at [facility] GLUCOSE [id number] 17:29:00 Test Item Value Reference Range Interpretation Comments GLUCOSE BEDSIDE (test 102 MG/DL 70-110 N Perfor med by certified code = GLUBED) contact acid plant operator at [facility] GLUCOSE [id number] 11:54:00 Test Item Value Reference Range Interpretation Comments GLUCOSE BEDSIDE (test 104 MG/DL 70-110 N Perfor med by certified code = GLUBED) contact acid plant operator at [facility] CBC W/MANUAL [id number] 10:35:00 Test Item Value Reference Range Interpretation [...] (test LARGE PLATELETS code = PLTMORPH) GLUCOSE [id number] 07:57:00 Test Item Value Reference Range Interpretation Comments GLUCOSE BEDSIDE (test 95 MG/DL 70-110 N Perfor med by certified code = GLUBED) contact acid plant operator at [facility] C REACTIVE [id number] 07:48:00 Test Item Value Reference Range Interpretation Comments C REACTIVE PROTEIN (test code = 36.0 mg/L <10.0 H CRP) BASIC METABOLIC [id number] 07:40:00 Test Item Value Reference Range Interpretation [...] code = 7.3 mg/dL 8.0-10.5 L CA) [id number] 07:40:00 Test Item Value Reference Range Interpretation Comments MAGNESIUM (test code = MAG) 1.50 mg/dL 1.80-2.40 L [id number] 07:04:00 Test Item Value Reference Range Interpretation Comments D-DIMER (test 5949 ng/mlFEU See_Comment HH Critical resu lt called to code = Jennifer RUIZ G.LAB.JJ1 DDIMER) at 700 3Nurse read back result and tech confirmed it's correct? YESTHROMBOSIS A ND/OR PULMONARY EMBOL ISM AND THE CLINICAL CUT- O FF VALUE FOR EXCLUSION (500 ng/mL FEU) OF THESE CONDIT IONSIS VALIDATED BY [facility] REPAIRER OF THE METHOD. A NEGATIVE D-DI JET [...] result as normal/abnormal . - DUP VEIN [id number] 00:00:00 [facility] : 1960 Sex: M Name: OSMAR CASTILLO [facility] [place] : 1960 Age/S: 62 / M [address] [place] [address] BlvdUnit #: [id number] Loc: [place] [address] Phys: Skip Jaffe MD Acct: [id number] Dis Date: Status: ADM IN PHONE #: [phone] Exam Date: 10/21/2022820 FAX #: [phone] Reason: R/o DVT EXAMS:CPT CODE: [id number] DUP VEIN ASAEL 12174 PROCEDURE INFORMATION: Exam: US Duplex Lower Extremity Veins, Bilateral Exam date and time: 10/21/2022 7:49 AM Age: 62 years old Clinical indication: Screening exam; Fever, leukocytosis; Additional info: R/O dvt TECHNIQUE: Imaging protocol: Real-time duplex ultrasound of the bilateral extremities with 2-D bateman scale, color Doppler flow and spectral waveform analys is including responses to compression and other maneuvers (when performed) with image documentation.Complete exam focused on the lower extremity veins. [...] MD; Salinas Dukes MD Technologist: Yesica Baker [facility] Date/Time: 10/21/2022 (0912) [email or web address] Orig Print D/T: S: 10/21/2022 (911) Probe: PAGE 1 Signed Report GLUCOSE [id number] 20:40:00 Test Item Value Reference Range Interpretation Comments GLUCOSE BEDSIDE (test 148 MG/DL 70-110 H Perfor med by certified code = GLUBED) contact acid plant operator at [facility] GLUCOSE [id number] 16:46:00 Test Item Value Reference Range Interpretation Comments GLUCOSE BEDSIDE (test 118 MG/DL 70-110 H Perfor med by certified code = GLUBED) contact acid plant operator at [facility] GLUCOSE [id number] 16:46:00 Test Item Value Reference Range Interpretation Comments GLUCOSE BEDSIDE (test 122 MG/DL 70-110 H Perfor med by certified code = GLUBED) contact acid plant operator at [facility] TROP-I HIGH [id number] 15:04:00 Test Item Value Reference Range Interpretation Comments TROP-I HIGH < 3 ng/L 0-54 N CAUTION: Units of the SENSITIVITY (test current te st methodology code = TROPIHS) (ng/L) diffe rfrom the prior test meth odology (ng/mL) by a fa ctor of 1000. 99t h Percentile Uppe r Reference Limit (URL): Fe males: 34 ng/LMales: 54 n g/L In order to distin [facility] acute elevations of h igh sensitivitytrop onin from other clinical conditions, the FourthUnive rsal Definition of M yocardial Infarction stressesclinica l assessment and the demonstration o f a rise and/orfall in s erial troponin result s above the URL. These resu lts were obtained using Siemens [employer] IM TnI Hreagent. Results from di fferent methodologies s hould not becompared to o ne another as quantitative results and URLs mayvar y by method. BASIC METABOLIC [id number] 15:04:00 Test Item Value Reference Range Interpretation [...] recommended for jose miguel for GFRby the [facility] on for Adults.The GFR will not calculate if th e sex is unknown or if thepatient's ag e is <18 years. CREATININE (test 0.8 mg/dL 0.6-1.3 N code = CREAT) CALCIUM (test code = 7.1 mg/dL 8.0-10.5 L CA) TROP-I HIGH [id number] 10:07:00 Test Item Value Reference Range Interpretation [...] URLs mayvar y by method. CBC W/AUTO [id number] 09:54:00 Test Item Value Reference Range Interpretation [...] (test NO code = MDIFF) TROP-I HIGH [id number] 09:24:00 Test Item Value Reference Range Interpretation Comments TROP-I HIGH < 3 ng/L 0-54 N CAUTION: Units of the SENSITIVITY (test current te st methodology code = TROPIHS) (ng/L) diffe rfrom the prior test meth odology (ng/mL) by a fa ctor of 1000. 99t h Percentile Uppe r Reference Limit (URL): Fe males: 34 ng/LMales: 54 n g/L In order to distin [facility] acute elevations of h igh sensitivitytrop onin from other clinical conditions, the FourthUnive rsal Definition of M yocardial Infarction stressesclinica l assessment and the demonstration o f a rise and/orfall in s erial troponin result s above the URL. These resu lts were obtained using [employer] IM TnI Hreagent. Results from di fferent methodologies s hould not becompared to o ne another as quantitative results and URLs mayvar y by method. GLUCOSE [id number] 08:49:00 Test Item Value Reference Range Interpretation Comments GLUCOSE BEDSIDE (test 102 MG/DL 70-110 N Perfor med by certified code = GLUBED) contact acid plant operator at [facility] COMPREHENSIVE METABOLIC [id number] 02:08:00 Test Item Value Reference Range Interpretation [...] 20-125 N TOTAL (test code = ALKP) [id number] 02:08:00 Test Item Value Reference Range Interpretation Comments LIPASE (test code = LIP) 57 U/L 13-57 N PROTHROMBIN [id number] 02:05:00 Test Item Value Reference Range Interpretation Comments PROTHROMBIN TIME 12.7 SECONDS 9.3-12.9 N PATIENT (test code = PTP) INTERNATIONAL NORMAL 1.1 0.8-1.2 N TARGET INR BY RATIO (test code = [...] (to prevent recurrent infar ct). THROMBOPLASTIN TIME [id number] 02:05:00 Test Item Value Reference Range Interpretation Comments THROMBOPLASTIN TIME 26.1 Seconds 25.0-39.5 N Therape utic Range: PARTIAL (test code = 50.4 - 88.3 Seconds PTT) Effective 07/21/2018 LACTIC [id number] 01:59:00 Test Item Value Reference Range Interpretation Comments LACTIC ACID (test code = LACT) 1.1 mmol/L 0.4-1.9 N CBC W/AUTO [id number] 01:51:00 Test Item Value Reference Range Interpretation [...] code = MDIFF) - XR CHEST 1 [id number] 00:00:00 [facility] : 1960 Sex: M FAX: Sofia Cheng NP [phone] [place]: St: ADM FAX: Salinas Callahan I [phone] --- Name: [facility]ANNE [facility] Maren Dobbs : 1960 Age/S: 62/M [address] [place] [address] Unit #: [id number] Loc: G.66[address] [place] [address] Phys: Sofia Cheng NP Acct: [id number] Dis Date: Status: ADM IN PHONE #: Exam Date: 10/20/2022106 FAX #: [phone] Reason: Sepsis EXAMS: CPT CODE: [id number] XR CHEST 1 V 37173 PROCEDURE INFORMATION: Exam: XR Chest Exam date [...] pneumothorax. Heart/Mediastinum: No cardiomegaly. Bones/joints: No acute ab normality. IMPRESSION: Mild interstitial pulmonary edema. No focal consolidation. at 0214 Reported and signed by: Reinaldo Jacobs M.D. CC: Sofia Cheng APPRENTICE PAINTER HAND; Salinas Dukes MD Technologist: Xochitl Dubon RT(R) Trnscrd Date/Time/By: 10/20/2022 (213) : By: [email or web address] Orig Print D/T: S: 10/20/2022 (5) PAGE 1 Signed ReportGLUCOSE [id number] 21:00:00 Test Item Value Reference Range Interpretation Comments GLUCOSE BEDSIDE (test 135 MG/DL 70-110 H Perfor med by certified code = GLUBED) contact acid plant operator at [facility] URINALYSIS [id number] 20:03:00 Test Item Value Reference Range Interpretation [...] MUCU) 1+ /LPF NONE SEEN UR SODIUM [id number] 20:03:00 Test Item Value Reference Range Interpretation Comments UR SODIUM RANDOM 102 MEQ/L The Referen ce Range and (test code = Method Performa nce ALPHONSE) specificationsh ave not been established for this fluid. The test result should be correlated into the clinical context forinte rpretation. UR PROTEIN [id number] 20:03:00 Test Item Value Reference Range Interpretation Comments UR PROTEIN RANDOM (test code = 79 mg/dL PROTU) UR CREATININE [id number] 20:03:00 Test Item Value Reference Range Interpretation Comments UR CREATININE 111.9 mg/dL The Reference Range and RANDOM (test code Method Per formance = CREATU) specificationsh ave not been establishe d for this fluid. The test resultshould be correlated into the clinical contex t forinterpretati on. UR OSMOLALITY [id number] 20:03:00 Test Item Value Reference Range Interpretation Comments UR OSMOLALITY RANDOM (test code = 575 MOS/KG 300-1000 OSMOU) UR OSMOLALITY [id number] 20:02:00 Test Item Value Reference Range Interpretation Comments UR OSMOLALITY RANDOM (test code = 575 MOS/KG 300-1000 N OSMOU) GLUCOSE [id number] 17:18:00 Test Item Value Reference Range Interpretation Comments GLUCOSE BEDSIDE (test 122 MG/DL 70-110 H Perfor med by certified code = GLUBED) contact acid plant operator at [facility] GLUCOSE [id number] 12:48:00 Test Item Value Reference Range Interpretation Comments GLUCOSE BEDSIDE (test 109 MG/DL 70-110 N Perfor med by certified code = GLUBED) contact acid plant operator at [facility] GLUCOSE [id number] 07:53:00 Test Item Value Reference Range Interpretation Comments GLUCOSE BEDSIDE (test 96 MG/DL 70-110 N Perfor med by certified code = GLUBED) contact acid plant operator at [facility] BASIC METABOLIC [id number] 07:51:00 Test Item Value Reference Range Interpretation [...] recommended for jose miguel for GFRby the [facility].The GFR will not calculate if th e sex is unknown or if thepatient's ag e is <18 years. CREATININE (test 0.8 mg/dL 0.6-1.3 N code = CREAT) CALCIUM (test code = 7.5 mg/dL 8.0-10.5 L CA) [id number] 07:51:00 Test Item Value Reference Range Interpretation Comments MAGNESIUM (test code = MAG) 1.65 mg/dL 1.80-2.40 L CBC W/AUTO [id number] 07:07:00 Test Item Value Reference Range Interpretation [...] REQUIRED (test code NO = MDIFF) GLUCOSE [id number] 20:44:00 Test Item Value Reference Range Interpretation Comments GLUCOSE BEDSIDE (test 116 MG/DL 70-110 H Perfor med by certified code = GLUBED) contact acid plant operator at [facility] GLUCOSE [id number] 18:07:00 Test Item Value Reference Range Interpretation Comments GLUCOSE BEDSIDE (test 98 MG/DL 70-110 N Perfor med by certified code = GLUBED) contact acid plant operator at [facility] GLUCOSE [id number] 12:23:00 Test Item Value Reference Range Interpretation Comments GLUCOSE BEDSIDE (test 135 MG/DL 70-110 H Perfor med by certified code = GLUBED) contact acid plant operator at [facility] GLUCOSE [id number] 11:22:00 Test Item Value Reference Range Interpretation Comments GLUCOSE BEDSIDE (test 104 MG/DL 70-110 N Perfor med by certified code = GLUBED) contact acid plant operator at [facility] BASIC METABOLIC [id number] 08:12:00 Test Item Value Reference Range Interpretation [...] recommended for jose miguel for GFRby the [facility] for Adults.The GFR will not calculate if th e sex is unknown or if thepatient's ag e is <18 years. CREATININE (test 0.8 mg/dL 0.6-1.3 N code = CREAT) CALCIUM (test code = 7.4 mg/dL 8.0-10.5 L CA) [id number] 08:12:00 Test Item Value Reference Range Interpretation Comments MAGNESIUM (test code = MAG) 1.48 mg/dL 1.80-2.40 L CBC W/AUTO [id number] 08:09:00 Test Item Value Reference Range Interpretation [...] REQUIRED (test code NO = MDIFF) GLUCOSE [id number] 05:56:00 Test Item Value Reference Range Interpretation Comments GLUCOSE BEDSIDE (test 104 MG/DL 70-110 N Perfor med by certified code = GLUBED) contact acid plant operator at [facility] GLUCOSE [id number] 03:31:00 Test Item Value Reference Range Interpretation Comments GLUCOSE BEDSIDE (test 129 MG/DL 70-110 H Perfor med by certified code = GLUBED) contact acid plant operator at [facility] GLUCOSE [id number] 12:50:00 Test Item Value Reference Range Interpretation Comments GLUCOSE BEDSIDE (test 177 MG/DL 70-110 H Perfor med by certified code = GLUBED) contact acid plant operator at [facility] CBC W/AUTO [id number] 10:14:00 Test Item Value Reference Range Interpretation [...] LY#) MANUAL DIFF REQUIRED NO SLIDE R EVCALVINWED, (test code = MDIFF) CONSISTE NT WITH [...] 0.0-0.1 N code = NRBC#) VITAMIN D [id number] 08:19:00 Test Item Value Reference Range Interpretation Comments VITAMIN D 25-HYDROXY (test code = 25.5 ng/mL 30-100 L VITD25) Indication for Test: PTH DisorderCOMPREHENSIVE METABOLIC [id number] 08:14:00 Test Item Value Reference Range Interpretation [...] 20-125 N TOTAL (test code = ALKP) [id number] 08:14:00 Test Item Value Reference Range Interpretation Comments PHOSPHOROUS (test code = PHOS) 2.6 MG/DL 2.5-4.9 N [id number] 08:14:00 Test Item Value Reference Range Interpretation Comments MAGNESIUM (test code = MAG) 1.50 mg/dL 1.80-2.40 L GLUCOSE [id number] 07:40:00 Test Item Value Reference Range Interpretation Comments GLUCOSE BEDSIDE (test 105 MG/DL 70-110 N Perfor med by certified code = GLUBED) contact acid plant operator at [facility] GLUCOSE [id number] 17:26:00 Test Item Value Reference Range Interpretation Comments GLUCOSE BEDSIDE (test 113 MG/DL 70-110 H Perfor med by certified code = GLUBED) contact acid plant operator at [facility] PROTHROMBIN [id number] 15:23:00 Test Item Value Reference Range Interpretation [...] prevent recurrent infar ct). TSH REFLEX TO [id number] 14:32:00 Test Item Value Reference Range Interpretation Comments TSH REFLEX TO FT4 (test code = 1.59 IU/mL 0.42-5.47 N TSHREFLEX) [id number] 14:19:00 Test Item Value Reference Range Interpretation Comments HGBA1C% (test code = HGBA1C%) 5.5 %A1C 4.8-6.0 N COMPREHENSIVE METABOLIC [id number] 14:13:00 Test Item Value Reference Range Interpretation [...] 20-125 N TOTAL (test code = ALKP) [id number] 14:13:00 Test Item Value Reference Range Interpretation Comments MAGNESIUM (test code = MAG) 1.91 mg/dL 1.80-2.40 N GLUCOSE [id number] 12:54:00 Test Item Value Reference Range Interpretation Comments GLUCOSE BEDSIDE (test 102 MG/DL 70-110 N Perfor med by certified code = GLUBED) contact acid plant operator at [facility] GLUCOSE [id number] 10:14:00 Test Item Value Reference Range Interpretation Comments GLUCOSE BEDSIDE (test 110 MG/DL 70-110 N Perfor med by certified code = GLUBED) contact acid plant operator at [facility] CBC W/AUTO [id number] 05:58:00 Test Item Value Reference Range Interpretation [...]
[2023-01-20 21:30] LABS: Absolute Lymphocytes (CBC) 0.5 K/uL (0.7-4.9); Hematocrit 32.3 % (39.6-49.0); Lymphocytes % 3.3 % (15.3-44.8); MCV 84.8 fL (80-100); MPV 7.4 fL (7.6-11.3); Platelets 449 thou/uL (152-406); RBC Red Blood Cell Count 3.81 M/uL (4.33-5.43)
[2023-01-20 21:38] LABS: Specific Gravity 1.016 (1.005-1.030); Urine Bacteria <20 /HPF (<20); Urine Bilirubin NEGATIVE (Negative); Urine Blood Trace (Negative); Urine Clarity Extremely Turbid (Clear); Urine Color Light-Yellow (Yellow); Urine Crystals Unidentified Few /HPF (None Seen); Urine Glucose NEGATIVE (Negative); Urine Mucus Slight /HPF (None Seen); Urine Protein 1+ (Negative); Urine Urobilinogen Normal (Normal); Urine WBC Clump Rare /HPF (None Seen)
[2023-01-20 21:41] LABS: Albumin 2.7 g/dL (3.4-5.0); Bilirubin Total 0.5 mg/dL (0.2-1.0); Potassium 4.5 mEq/L (3.5-5.1); Protein, Total 7.3 g/dL (6.4-8.2)
[2023-01-20 22:13] LABS: Blood Morphology Comment NOT SEEN (NOT SEEN); Platelet Estimate ADEQ
--- NOTE | 2023-01-20 22:46 | ER ---
Nurse's Notes [facility] Name: Mathew Porter Age: 62 yrs Sex: Male : 1960 Arrival Date: 01/20/2023 Time: 19:06 Bed 20 Private MD: Lakhwinder Guillermo Diagnosis: Acute kidney failure, unspecified;Retention of urine, unspecified;Other and unspecified hydronephrosis Presentation: 01/20 19:24 Chief complaint: Patient's son or daughter states: Abdominal pain along with meatus nj1 pain ever since johns cath taken out last Friday. Coronavirus screen: Vaccine status: Patient reports receiving the 2nd dose of the covid vaccine. Ebola Screen: Patient denies travel to an Ebola-affected area in the 21 days before illness onset. Initial Sepsis Screen: Does the patient meet any 2 criteria? HR > 90 bpm. No. Patient's initial sepsis screen is negative. Does the patient have a suspected source of infection? No. Patient's initial sepsis screen is negative. Risk Assessment: Do you want to hurt yourself or someone else? Patient reports no desire to harm self or others. Onset of symptoms was January 13, 2023. 19:24 Method Of Arrival: Ambulatory [facility] 19:24 Acuity: JAMILA 3 nj1 Triage Assessment: 21:00 General: Appears in no apparent distress. uncomfortable, Behavior is calm, cooperative. jw7 Pain: Complains of pain in right lower quadrant and left lower quadrant Pain does not radiate. Pain currently is 10 out of 10 on a pain scale. Quality of pain is described as crampy, pressure, Pain began , 01/16/23 Is continuous, Noted to be confused, guarding, resistant to movement. EENT: No deficits noted. No signs and/or symptoms were reported regarding the EENT system. Neuro: Devine Agitation-Sedation Scale (RASS): 0 - Alert and Calm. Cardiovascular: Capillary refill < 3 seconds Clubbing of nail beds is absent JVD is absent Patient's skin is warm and dry. Respiratory: Airway is patent Trachea midline Respiratory effort is even, unlabored, Respiratory pattern is regular, symmetrical. GI: Abdomen is round distended, Bowel sounds present X 4 quads. Abd is soft Abdomen is tender to palpation in right lower quadrant and left lower quadrant Reports lower abdominal pain, urethral pain. : Reports pain lower quadrant(s) urethral. Derm: No signs and/or symptoms reported regarding the dermatologic system. Skin is intact, is healthy with good turgor, Skin is dry, Skin is normal, Skin temperature is warm. Musculoskeletal: No signs and/or symptoms reported regarding the musculoskeletal system. Circulation, motion, and sensation intact. Range of motion: intact in all extremities. Historical: - Allergies: 19:28 No Known Allergies; nj1 - PMHx: 19:28 Schizophrenia; nj1 - PSHx: 19:28 Urolift (January 03, 2023); nj1 - Immunization history:: Client reports receiving the 2nd dose of the Covid vaccine. - Social history:: Smoking status: Patient/guardian denies using tobacco, Stopped _ months ago 3. Screenin:41 [facility] ED Fall Risk Assessment (Adult) History of falling in the last 3 months, jw7 including since admission No falls in past 3 months (0 pts) Confusion or Disorientation No (0 pts) Intoxicated or Sedated No (0 pts) Impaired Gait Yes (1 pt) Mobility Assist Device Used No (0 pt) Altered Elimination Yes (1 pt) Score/Fall Risk Level 0 - 2 = Low Risk Oriented to surroundings, Maintained a safe environment, Educated pt \T\ family on fall prevention, incl call for assistance when getting out of bed. Abuse screen: Denies threats or abuse. Denies injuries from another. Nutritional screening: No deficits noted. Tuberculosis screening: No symptoms or risk factors identified. Assessment: 21:10 General: see triage assessment. jw7 22:00 Reassessment: Patient appears in no apparent distress at this time. No changes from jw7 previously documented assessment. Patient and/or family updated on plan of care and expected duration. Pain level reassessed. Patient is alert, oriented x 3, equal unlabored respirations, skin warm/dry/pink. 23:00 General: Daughter #[phone] (Alecia). jw7 23:00 Reassessment: Patient appears in no apparent distress at this time. No changes from jw7 previously documented assessment. Patient and/or family updated on plan of care and expected duration. Pain level reassessed. Patient is alert, oriented x 3, equal unlabored respirations, skin warm/dry/pink. 01/21 00:00 Reassessment: Patient appears in no apparent distress at this time. Patient and/or jw7 family updated on plan of care and expected duration. Pain level reassessed. Patient is alert, oriented x 3, equal unlabored respirations, skin warm/dry/pink. Patient states feeling better. 01:15 Reassessment: Patient appears in no apparent distress at this time. No changes from jw7 previously documented assessment. Patient and/or family updated on plan of care and expected duration. Pain level reassessed. Patient is alert, oriented x 3, equal unlabored respirations, skin warm/dry/pink. 02:30 Reassessment: Patient appears in no apparent distress at this time. No changes from jw7 previously documented assessment. Patient and/or family updated on plan of care and expected duration. Pain level reassessed. Patient is alert, oriented x 3, equal unlabored respirations, skin warm/dry/pink. 03:37 Reassessment: Patient appears in no apparent distress at this time. Patient and/or jw7 family updated on plan of care and expected duration. Pain level reassessed. Patient is alert, oriented x 3, equal unlabored respirations, skin warm/dry/pink. 04:09 Reassessment: Patient appears in no apparent distress at this time. No changes from jw7 previously documented assessment. Patient and/or family updated on plan of care and expected duration. Pain level reassessed. Patient is alert, oriented x 3, equal unlabored respirations, skin warm/dry/pink. Vital Signs: 01/20 19:24 BP 134 / 90; Pulse 113; Resp 18; Temp 97.9(O); Pulse Ox 99% ; Weight 70.76 kg; Height 5 nj1 ft. 9 in. ; Pain 01/14; 21:30 BP 149 / 87; Pulse 95; Resp 19 S; Pulse Ox 96% on R/A; jw7 23:30 BP 142 / 93; Pulse 96; Resp 16 S; Pulse Ox 96% on R/A; jw7 01/21 00:30 BP 160 / 86; Pulse 105; Resp 19 S; Pulse Ox 97% on R/A; jw7 01:00 BP 148 / 76; Pulse 91; Resp 17 S; Pulse Ox 97% on R/A; jw7 02:00 BP 136 / 80; Pulse 91; Resp 18 S; Pulse Ox 96% on R/A; jw7 03:00 BP 148 / 78; Pulse 92; Resp 19 S; Pulse Ox 96% on R/A; jw7 04:09 BP 123 / 90; Pulse 104; Resp 18 S; Pulse Ox 98% on R/A; jw7 01/20 19:24 Body Mass Index 23.04 (70.76 kg, 175.26 cm) nj1 01/20 19:24 Pain Scale: Adult [facility] ED Course: 01/20 19:10 Patient arrived in ED. gm2 19:11 Lakhwinder Guillermo MD is Private Physician. gm2 19:12 Karsten Whitehead PA is PHCP. cp 19:12 Wilbert Barragan DO is Attending Physician. cp 19:28 Triage completed. nj1 19:29 Arm band placed on right wrist. nj1 20:31 Natalia Huynh, RN is Primary Nurse. jw7 21:13 Inserted saline lock: 22 gauge in left antecubital area, using aseptic technique. Blood jw7 collected. 21:22 Urinalysis w/ reflexes Sent. bp 21:22 Lipase Sent. bp 21:22 CMP Sent. bp 21:22 CBC with Diff Sent. bp 21:41 Patient has correct armband on for positive identification. Bed in low position. Call jw7 light in reach. 22:45 Coud inserted, using sterile technique, 16 Fr. Returned clear yellow urine. To gravity jw7 drainage. Patient tolerated well. 23:00 First set of blood cultures drawn by me. jw7 23:00 Inserted saline lock: 22 gauge in right antecubital area, using aseptic technique. jw7 23:12 Lactate w/ 2H reflex if indic. Sent. jw7 23:43 XRAY Chest (1 view) In Process Unspecified. EDMS 23:58 CT Stone Protocol In Process Unspecified. EDMS 01/21 00:38 Initiated transfer with Vida at [facility]. rv1 01:[address] Jones to [facility]. rv1 03:39 Provided Education on: need for transfer. jw7 03:39 No provider procedures requiring assistance completed. jw7 04:10 Patient transferred, IV remains in place. jw7 Administered Medications: 00:37 Drug: Cefepime IVPB 1 grams IVPB at 200 ml/hr once over 30 mins; (mix in NS 100 mL) jw7 Route: IVPB; Rate: 200 ml/hr; Infused Over: 30 mins; Site: right antecubital; 01:46 Follow up: Response: No adverse reaction; IV Status: Completed infusion; IV Intake: jw7 100ml 00:48 Drug: NS 0.9% IV 1000 ml IV at 1 bolus Per protocol; 1000 mL bolus Route: IV; Rate: 1 jw7 bolus; Site: right antecubital; 01:57 Follow up: Response: No adverse reaction; IV Status: Completed infusion; IV Intake: jw7 1000ml 01:56 Drug: Meropenem IV 500 mg IV at calculated rate once; (mix in NS 100 mL) Route: IV; jw7 Rate: calculated rate; Site: right antecubital; 03:39 Follow up: Response: No adverse reaction; IV Status: Completed infusion; IV Intake: jw7 100ml Medication: 03:40 VIS not applicable for this client. jw7 Intake: 01:46 IV: 100ml; Total: 100ml. jw7 01:57 IV: 1000ml; Total: 1100ml. jw7 03:39 IV: 100ml; Total: 1200ml. jw7 Output: 01/20 22:45 Urine: 1400ml (Johns); Total: 1400ml. jw7 01/21 03:30 Urine: 1200ml (Johns); Total: 2600ml. jw7 Outcome: 01/20 22:45 ER care complete, transfer ordered by MD. wren 01/21 04:09 Transferred by ground EMS Note: [facility] jw7 Condition: stable Instructed on the need for transfer, Demonstrated understanding of instructions, 04:17 Patient left the ED. jw7 Signatures: Dispatcher [employer] EDMS Karsten Whitehead PA PA cp Peltier, Brian, RN RN Natalia Munoz RN RN jw7 Faiza Conte rv1 Tanya Lopes, DEENA RN tnIrish Schwarz 12 Megan Robles 2 Corrections: (The following items were deleted from the chart) 01/20 21:39 21:39 General: see triage assessment. jw7 jw7 01/21 00:38 01/20 21:13 Inserted saline lock: 22 gauge in right antecubital area, using aseptic jw7 technique. Blood collected. jr12 01/21 06:14 06:12 Initiated transfer with Vida at [facility] rv1 rv1
--- NOTE | 2023-01-20 22:46 | EDPHYS ---
Physician Documentation [facility] Name: Mathew Porter Age: 62 yrs Sex: Male : 1960 Arrival Date: 01/20/2023 Time: 19:06 Bed 20 Private MD: Lakhwinder Guillermo ED Physician Wilbert Barragan HPI: 01/20 20:15 This 62 yrs old Male presents to ER via Ambulatory with complaints of Abdominal Pain. cp 20:15 The patient presents with abdominal pain abdominal distention. Onset: The cp symptoms/episode began/occurred gradually, last week, and became worse today. Associated signs and symptoms: Pertinent positives: difficulty urinating, penile pain, Pertinent negatives: fever, hematuria, shortness of breath, vomiting. The symptoms are described as constant. Patient presents to ED with daughter who reports patient had johns catheter removed last Friday and since has had increasing difficulty urinating and increasing abdominal pain. Patient reportedly had prostate surgery recently. Historical: - Allergies: 19:28 No Known Allergies; nj1 - PMHx: 19:28 Schizophrenia; nj1 - PSHx: 19:28 Urolift (January 03, 2023); nj1 - Immunization history:: Client reports receiving the 2nd dose of the Covid vaccine. - Social history:: Smoking status: Patient/guardian denies using tobacco, Stopped _ months ago 3. ROS: 20:20 Constitutional: Negative for body aches, chills, fever, poor PO intake, cp 20:20 Eyes: Negative for injury, pain, redness, and discharge, cp 20:20 ENT: Negative for drainage from ear(s), ear pain, sore throat, difficulty swallowing, difficulty handling secretions, 20:20 Cardiovascular: Negative for chest pain, edema, palpitations, 20:20 Respiratory: Negative for cough, shortness of breath, wheezing, 20:20 Abdomen/GI: Positive for abdominal pain, Negative for vomiting, diarrhea, constipation, 20:20 : Positive for difficulty urinating, penile pain, Negative for hematuria, testicular pain 20:20 Neuro: Negative for altered mental status, 20:20 All other systems are negative, Exam: 20:25 Constitutional: The patient appears in no acute distress, alert, awake, cp non-diaphoretic, non-toxic, well developed, well nourished, uncomfortable, 20:25 Head/Face: Normocephalic, atraumatic. cp 20:25 Eyes: Periorbital structures: appear normal, Conjunctiva: normal, no exudate, no injection, Sclera: no appreciated abnormality, Lids and lashes: appear normal, bilaterally, 20:25 ENT: External ear(s): are unremarkable, Nose: is normal, Mouth: Lips: moist, Oral mucosa: pink and intact, moist, Posterior pharynx: is normal, airway is patent, no erythema, no exudate, 20:25 Chest/axilla: Inspection: normal, 20:25 Cardiovascular: Rate: tachycardic, Rhythm: regular, Edema: is not appreciated, JVD: is not appreciated, 20:25 Respiratory: the patient does not display signs of respiratory distress, Respirations: normal, no use of accessory muscles, no retractions, labored breathing, is not present, Breath sounds: are clear throughout, no decreased breath sounds, no stridor, no wheezing, 20:25 Abdomen/GI: Inspection: distension, that is moderate, Bowel sounds: active, all quadrants, Palpation: soft, in all quadrants, severe abdominal tenderness, in the suprapubic area, right lower quadrant and left lower quadrant, rebound tenderness, is not appreciated, voluntary guarding, is elicited in the suprapubic area, right lower quadrant and left lower quadrant, 20:25 Neuro: Orientation: no acute changes, per family, Mentation: no acute changes, per family, Motor: moves all fours, strength is normal, Gait: is steady, Vital Signs: 19:24 BP 134 / 90; Pulse 113; Resp 18; Temp 97.9(O); Pulse Ox 99% ; Weight 70.76 kg; Height 5 nj1 ft. 9 in. ; Pain 10/10; 21:30 BP 149 / 87; Pulse 95; Resp 19 S; Pulse Ox 96% on R/A; jw7 23:30 BP 142 / 93; Pulse 96; Resp 16 S; Pulse Ox 96% on R/A; jw7 01/21 00:30 BP 160 / 86; Pulse 105; Resp 19 S; Pulse Ox 97% on R/A; jw7 01:00 BP 148 / 76; Pulse 91; Resp 17 S; Pulse Ox 97% on R/A; jw7 02:00 BP 136 / 80; Pulse 91; Resp 18 S; Pulse Ox 96% on R/A; jw7 03:00 BP 148 / 78; Pulse 92; Resp 19 S; Pulse Ox 96% on R/A; jw7 04:09 BP 123 / 90; Pulse 104; Resp 18 S; Pulse Ox 98% on R/A; jw7 01/20 19:24 Body Mass Index 23.04 (70.76 kg, 175.26 cm) nj1 01/20 19:24 Pain Scale: Adult hi1 MDM: 01/20 19:31 Patient medically screened. 21:00 Differential diagnosis: bowel obstruction, Pyelonephritis, Ureterolithiasis, urinary cp tract infection, sepsis. 01/21 00:00 Data reviewed: vital signs, nurses notes, lab test result(s), radiologic studies, CT cp scan, plain films. 00:00 I considered the following discharge prescriptions or medication management in the emergency department Medications were administered in the Emergency Department. See MAR. Historians other than the Patient: Daughter/Son: daughter provides HPI. Response to treatment: improved, and as a result, I will transfer patient. 01/20 20:09 Order name: CBC with Diff; Complete Time: 22:43 cp 01/20 22:43 Interpretation: Normal except: WBC 14.00; RBC 3.81; HGB 11.0; HCT 32.3; PLT 449; MPV cp 7.4; TOMAS% 89.0; LYM% 3.3; NEUT A 12.5; LYMA 0.5. 01/20 20:09 Order name: CMP; Complete Time: 22:02 cp 01/20 22:02 Interpretation: Normal except: NA 130; CL 95; GLUC 132; BUN 105; GFR 11; CRE 5.68; ALB cp 2.7; AST 11; ALT 15; GLOB 4.6; A/G 0.6. 01/20 20:09 Order name: Lipase; Complete Time: 22:02 cp 01/20 20:09 Order name: Urinalysis w/ reflexes; Complete Time: 22:02 cp 01/20 21:38 Order name: Manual Differential; Complete Time: 22:43 EDMS 01/20 22:43 Interpretation: Normal except: SEGS 88; BANDS [F] 2; LYM 7. cp 01/20 21:42 Order name: Urine Culture EDMS 01/20 22:04 Order name: Lactate w/ 2H reflex if indic.; Complete Time: 23:56 01/20 22:04 Order name: Blood Culture Adult (2) 01/20 23:30 Order name: XRAY Chest (1 view) 01/20 23:30 Order name: CT Stone Protocol 01/20 20:09 Order name: IV Saline Lock; Complete Time: 21:13 01/20 20:09 Order name: Labs collected and sent; Complete Time: 21:13 01/20 20:09 Order name: Bladder Scanner: pre and post scan; Complete Time: 23:27 01/20 23:12 Order name: Johns-Coude; Complete Time: 23:12 jw7 Administered Medications: 00:37 Drug: Cefepime IVPB 1 grams IVPB at 200 ml/hr once over 30 mins; (mix in NS 100 mL) jw7 Route: IVPB; Rate: 200 ml/hr; Infused Over: 30 mins; Site: right antecubital; 01:46 Follow up: Response: No adverse reaction; IV Status: Completed infusion; IV Intake: jw7 100ml 00:48 Drug: NS 0.9% IV 1000 ml IV at 1 bolus Per protocol; 1000 mL bolus Route: IV; Rate: 1 jw7 bolus; Site: right antecubital; 01:57 Follow up: Response: No adverse reaction; IV Status: Completed infusion; IV Intake: jw7 1000ml 01:56 Drug: Meropenem IV 500 mg IV at calculated rate once; (mix in NS 100 mL) Route: IV; jw7 Rate: calculated rate; Site: right antecubital; 03:39 Follow up: Response: No adverse reaction; IV Status: Completed infusion; IV Intake: jw7 100ml Disposition: 01/20 21:14 I was immediately available on-site in the Emergency Department for consultation in the mn3 care of the patient. Disposition Summary: 01/20/23 22:45 Transfer Ordered Notes: Transfer Location: [facility] cp Reason: Higher level of care cp Condition: Stable cp Problem: an ongoing problem cp Symptoms: have improved cp Accepting Physician: DR Jones(01/21/23 04:17) jw7 Diagnosis - Acute kidney failure, unspecified cp - Retention of urine, unspecified cp - Other and unspecified hydronephrosis cp Forms: - Medication Reconciliation Form cp - SBAR form cp Signatures: Dispatcher [employer] Karsten Riley PA PA cp Sims, Marcus, DO ms3 Natalia Huynh RN RN jw7 Tanya Lopes RN RN nj1 Corrections: (The following items were deleted from the chart) 22:03 21:48 Ruslan washington jw7 01/21 01:28 01/20 22:45 Doctor holger 01/21 04:17 01:28 DR Robert wren jw7
[2023-01-21] MEDS ORDERED: NA CHLORIDE 0.9% 100 ML ONE ×2 (00:42→02:02)
[2023-01-21] MEDS ORDERED: CEFEPIME 1 GM/VIAL ONE (00:42)
[2023-01-21] MEDS ORDERED: NA CHLORIDE 0.9% 1,000 ML ONE (00:58)
[2023-01-21] MEDS ORDERED: Meropenem 500 MG VIAL IV ONE (02:02)
[2023-01-21 04:32] VITALS: TEMP 97.9
[2023-01-21 04:39] VITALS: BP 123/90; O2SAT 98
--- NOTE | 2023-01-21 17:06 | RAD REPORT ---
EXAM DESCRIPTION: Chest Single View CLINICAL HISTORY: 62-year-old male with abdominal distention. TECHNIQUE: Single view, AP portable chest was obtained. COMPARISON: None. FINDINGS: Unremarkable cardiac and mediastinal silhouette. Heart size is normal. Opacity overlying t he cardiac silhouette and upper abdomen suggestive of small hiatal hernia. Small right pleural effusion. Lungs are clear without focal opacity, pneumothorax or large pleural effusions. The visualized bone s are within normal limits. IMPRESSION: 1. Small right pleural effusion. 2. Opacity overlying the cardiac silhouette and upper abdomen suggestive of small hiatal hernia. Electronically signed by: Felisa Alicia MD 01/21/2023 12:43 AM CDT Due to temporary technical issues with the PACS/Fluency reporting system, reports are being signed by the in house radiologists without review as a courtesy to insure prompt reporting. The interpreting radiologist is fully responsible for the content of the report.
--- NOTE | 2023-01-21 17:24 | RAD REPORT ---
EXAM DESCRIPTION: CT Abdomen and Pelvis Without Intravenous Contrast CLINICAL HISTORY: Kidney failure TECHNIQUE: Axial computed tomography images of the abdomen and pelvis without intravenous contrast. Sagittal and coronal reformatted images were created and reviewed. This CT exam was performed usi ng one or more of the following dose reduction techniques: automated exposure control, adjustment o f the mA and/or kV according to patient size, and/or use of iterative reconstruction technique. COMPARISON: CT Abdomen Pelvis dated 10/15/2022 FINDINGS: Lung bases: Minimal right basilar consolidation. Pleural space: Small right pleural effusion. Mediastinum: Small to moderate hiatal hernia. ABDOMEN: Liver: Unremarkable. Gallbladder and bile ducts: Contracted gallbladder. No calcified stones. No ductal dilation. Pancreas: Unremarkable. No ductal dilation. Spleen: Unremarkable. No splenomegaly. Adrenals: Unremarkable. No mass. Kidneys and ureters: Moderate to severe bilateral hydroureteronephrosis again demonstrated. Moder ate to severe perinephric and pararenal stranding. Fluid tracks along the perinephric and pararenal space into the pelvis. No calculi. Stomach and bowel: Unremarkable. No obstruction. No mucosal thickening. PELVIS: Appendix: Normal caliber appendix. No findings to suggest acute appendicitis. Bladder: The urinary bladder is decompressed around a Mercer catheter. No stones. Reproductive: The prostate is significantly enlarged. ABDOMEN and PELVIS: Intraperitoneal space: Small amount of free fluid in the pelvis. No free air. Bones/joints: No acute fracture. No dislocation. Soft tissues: Unremarkable. Vasculature: Mild atherosclerotic disease. No abdominal aortic aneurysm. Lymph nodes: Unremarkable. No enlarged lymph nodes. IMPRESSION: 1. Persistent moderate to severe bilateral hydroureteronephrosis which may in part be related to chronic bladder outlet obstruction and/or reflux. Moderate to severe perinephric and par arenal stranding on the right tracking into the pelvis. No calculi identified. A recently passed calculus may be considered. Please correlate clinically for pyelonephritis/urinary tract infection. Given degree of fluid, the possibility of collecting system rupture cannot be excluded on the basi s of this examination. 2. Other findings as above. THIS REPORT CONTAINS FINDINGS THAT MAY BE CRITICAL TO PATIENT CARE: The findings were verbally discus sed via telephone conference with LEANA Badillo on 01/21/2023 1:04 AM CDT. The results were acknowle dged and understood. Electronically signed by: Santosh Keita MD 01/21/2023 1:05 AM CDT Due to temporary technical issues with the PACS/Fluency reporting system, reports are being signed by the in house radiologists without review as a courtesy to insure prompt reporting. The interpreting radiologist is fully responsible for the content of the report.
== END 2023-01-21 04:17 | disposition short-term general hospital (02) ==
LOC: ER 19:06
DX: N17.9 Acute kidney failure, unspecified (principal); N13.39 Other hydronephrosis; F20.9 Schizophrenia, unspecified
CPT/HCPCS: 87040 ×2; 87088; 85025; 81001; 87086; 36415; 83605; 83690; 80053; 76377; 74176; 71045; J7030; J0692

== ENCOUNTER 2023-02-05 18:30 | Emergency (ER) | payer OTHER ==
--- OUTSIDE RECORDS SUMMARY | 2023-02-05 18:36 | XMS REPORT | Continuity of Care Document ---
:[address] [facility] t Address [address] [place] [address] Care Team Providers Name Role Phone Salinas [...] Known DA Active U [facility] Allergie 7-12 [facility] s 00:00: d 00 [facility] Medications This patient has no known medications. Procedures This patient has no known procedures. Encounters Start End Encounter Admission Attending Care Care Encounter Source Date/Time Date/Time Type Type Clinicians Facility Department ID 2023-01-21 2023-01-22 Inpatient EM [facility] MEDI.01 [id number] [facility] 06:38:00 20:00:00 Salinas Dukes 65 [facility] 2023-01-06 2023-01-11 [facility] [id number] 15:12:00 21:08:00 Salinas Dukes 41 [facility] 2022-10-16 2022-10-26 Inpatient EM [facility] MEDI.01 [id number] [facility] 05:03:00 19:41:00 Salinas Dukes 28 [facility] Results Test Description Test Time Test Comments Results Result [facility] e Comments - CT ABD PELVIS 2023-01-05 W/CONT 8 13:00:00 [facility] 1960 Sex: M Name: OSMAR CASTILLO [facility] : 1960 Age/S: 62 / M [address] [place] [address] Blvd Unit #: [id number] Loc: [place] [address] Phys: Sofia Cheng GRAIN PROCESSOR Acct: [id number] Dis Date: Status: ADM IN PHONE #: [phone] Exam Date: 01/22/2023 1231 FAX #: [phone] Reason: ABD PAIN EXAMS: CPT CODE: [id number] CT ABD PELVIS W/CONT 21970 EXAM: CT abdomen and pelvis with contrast Dictation location: E5 INDICATION: Abdominal pain COMPARISON: CT abdomen and pelvis on 01/20/2023 TECHNIQUE: Axial images of the abdomen and pelvis were obtained with 100 mL Isovue-300 IV contrast. Unless otherwise specified, incidental findings do not require dedicated imaging follow-up. Coronal and sagittal reformatted images were performed. Estimated GFR is greater than 60. DISCUSSION: Lower thorax: A small right pleural effusion is noted, with adjacent mild compressive atelectasis of the right lower lobe. A small to moderate size hiatal hernia is noted. Hepatobiliary: Unremarkable. No biliary ductal dilatation. Gallbladder: Unremarkable. Spleen: Unremarkable. Pancreas: Unremarkable. Kidneys: There is moderate bilateral hydronephrosis to the level of the bladder. No definite urinary tract calculus is seen when accounting for early excretion of contrast from the kidneys. No solid renal mass is identified. There is prominent right perinephric and right periureteral fat stranding to the level of the mid ureter, possibly related to forniceal rupture; this is similar compared to the previous exam. Adrenals: Unremarkable. Lymph nodes: No lymphadenopathy. Peritoneum/retroperitoneum : Right retroperitoneal fluid as described above. No intraabdominal free air or free fluid. Vessels: Mild to moderate atherosclerotic calcification, without PAGE 1 Signed Report (CONTINUED) Name: OSMAR CASTILLO [facility] : 1960 Age/S: 62 / M [address] [place] [address] Blvd Unit #: [id number] Loc: [place] [address] Phys: Sofia Cheng GRAIN PROCESSOR Acct: [id number] Dis Date: Status: ADM IN PHONE #: [phone] Exam Date: 01/22/2023 1231 FAX #: [phone] Reason: ABD PAIN EXAMS: CPT CODE: [id number] CT ABD PELVIS W/CONT 77794 (Continued) abdominal aortic aneurysm. Pelvic organs/bladder: Moderate to marked prostatomegaly. A Black catheter also decompresses the bladder. Bowel: No abnormal bowel wall thickening or evidence of obstruction. The appendix is normal. Bones/soft tissues: No fracture or bony mass lesion. No hernia is seen. IMPRESSION: 1. Moderate bilateral hydroureteronephrosis at the level of the bladder. There is moderate to marked prostatomegaly. These findings could be on the basis of chronic bladder outlet obstruction. Prominent right perinephric fat stranding continuing inferiorly adjacent to the right ureter is similar compared to the previous exam, possibly related to forniceal rupture. A Black catheter mostly decompresses the bladder. 2. Additional findings include a small right pleural effusion with adjacent mild compressive atelectasis of the right lower lobe, a small to moderate size hiatal hernia, and moderate to marked prostatomegaly. One or more of the following dose reduction techniques were used: Automated exposure control, adjustment of the mA and/or kV according to patient size, and/or utilization of iterative reconstruction technique. DLP: 264 mGy-cm CTDI: 212 mGy at 1300 Reported and signed by: John Berumen M.D. CC: Lakhwinder Guillermo MD; Sofia Cheng NP; Salinas Dukes MD Technologist:Rick Moran Jr, RT(R)(CT) CTDI: DLP: Trnscb Date/Time: 01/22/2023 (1300) t.SDR.BC0 Orig Print D/T: S: 01/22/2023 (6161) PAGE 2 Signed Report BASIC METABOLIC PANEL 2023-01-22 07:46:00 Test Item Value Reference Range Interpretation Comme nts SODIUM (test code = NA) 137 mEq/L 134-147 N POTASSIUM (test code = K) 4.1 mEq/L 3.4-5.0 N CHLORIDE (test code = CL) 104 mEq/L 100-108 N CARBON DIOXIDE (test code = 25 mEq/l 21-33 N CO2) ANION GAP (test code = GAP) 12 0-20 N GLUCOSE (test code = GLU) 102 mg/dL 77-141 N NO TE: NEW NORMAL RANGE BLOOD UREA NITROGEN (test code 24 mg/dL 7-25 NOTE: NEW NORMAL RANGE = BUN) GLOMERULAR FILTRATION RATE 75.4 80-90 L T he Glomerular Filtration Rate is (test code = GFR) a calculat ed parameterbased on serum Creatinin e, patient age and sex. GFR values less than 60 mL/min/1.73 squ are meters are indicative ofCh ronic Kidney Disease. Values less than 15 mL/min/1.73squa re meters indicate Kidney failure. The calculation forGFR is based on the CKD-EPI (2020) calculat ion. This formulais race indifferen t and is the recommended for jose miguel for GFRby the National Kidney Foundation for Adults.The GFR will not calculate if the sex is u nknown or if thepatient's ag e is <18 years. CREATININE (test code = CREAT) 1.1 mg/dL 0.6-1.3 CALCIUM (test code = CA) 7.4 mg/dL 8.0-10.5 L [id number] 07:46:00 Test Item Value Reference Range Interpretation Comments PHOSPHOROUS (test code = PHOS) 2.4 MG/DL 2.5-4.9 L [id number] 07:46:00 Test Item Value Reference Range Interpretation Comments MAGNESIUM (test code = 1.69 mg/dL 1.6-2.6 N NOTE: NEW NORMAL MAG) RANGE CBC W/AUTO [id number] 07:05:00 Test Item Value Reference Range Interpretation Comments WHITE BLOOD CELL (test code = 9.9 x10 3/uL 4.5-11.0 N WBC) RED BLOOD CELL (test code = 3.36 x10 6/uL 4.00-5.60 L RBC) HEMOGLOBIN (test code = HGB) 9.6 g/dL 12.5-16.9 L HEMATOCRIT (test code = HCT) 29.1 % 37.5-50.7 L MEAN CELL VOLUME (test code = 86.6 fL 81.0-99.0 N MCV) MEAN CELL HGB (test code = MCH) 28.6 pg 27.0-33.0 N MEAN CELL HGB CONCETRATION 33.0 g/dL 33.0-37.0 N (test code = MCHC) RED CELL DISTRIBUTION WIDTH CV 13.9 % 11.5-14.5 N (test code = RDW) RED CELL DISTRIBUTION WIDTH SD 43.3 fL 37.0-54.0 N (test code = RDW-SD) PLATELET COUNT (test code = 403 x10 3/uL 150-400 H PLT) MEAN PLATELET VOLUME (test code 9.3 fL 7.0-9.0 H = MPV) NEUTROPHIL % (test code = NT%) 74.6 % 56.0-77.0 N IMMATURE GRANULOCYTE % (test 0.5 % 0.0-2.0 N code = IG%) LYMPHOCYTE % (test code = LY%) 9.8 % 14.0-32.0 L MONOCYTE % (test code = MO%) 9.0 % 4.8-9.0 N EOSINOPHIL % (test code = EO%) 5.7 % 0.3-3.7 H BASOPHIL % (test code = BA%) 0.4 % 0.0-2.0 N NUCLEATED RBC % (test code = 0.0 % 0-0 N NRBC%) NEUTROPHIL # (test code = NT#) 7.35 x10 3/uL 2.0-7.6 N IMMATURE GRANULOCYTE # (test 0.05 x10 3/uL 0.00-0.03 H code = IG#) LYMPHOCYTE # (test code = LY#) 0.97 x10 3/uL 1.0-3.8 L MONOCYTE # (test code = MO#) 0.89 x10 3/uL 0.1-0.8 H EOSINOPHIL # (test code = EO#) 0.56 x10 3/uL 0.0-0.2 H BASOPHIL # (test code = BA#) 0.04 x10 3/uL 0.0-0.2 N NUCLEATED RBC # (test code = 0.00 x10 3/uL 0.0-0.1 N NRBC#) BASIC METABOLIC [id number] 06:08:00 Test Item Value Reference Range Interpretation Comments SODIUM (test code = 134 mEq/L 134-147 N NA) POTASSIUM (test code 4.4 mEq/L 3.4-5.0 N = K) CHLORIDE (test code 102 mEq/L 100-108 N = CL) CARBON DIOXIDE (test 22 mEq/l 21-33 N code = CO2) ANION GAP (test code 14 0-20 N = GAP) GLUCOSE (test code = 111 mg/dL 77-141 N NOTE: N EW NORMAL RANGE GLU) BLOOD UREA NITROGEN 54 mg/dL 7-25 H NOTE: NE W NORMAL RANGE (test code = BUN) GLOMERULAR 26.9 80-90 L The Glomerular FILTRATION RATE Filtration [...] ag e is <18 years. CREATININE (test 2.6 mg/dL 0.6-1.3 H code = CREAT) CALCIUM (test code = 8.2 mg/dL 8.0-10.5 N CA) CBC W/AUTO [id number] 05:57:00 Test Item Value Reference Range Interpretation Comments WHITE BLOOD CELL (test code = 11.2 x10 3/uL 4.5-11.0 H WBC) RED BLOOD CELL (test code = 3.66 x10 6/uL 4.00-5.60 L RBC) HEMOGLOBIN (test code = HGB) 10.3 g/dL 12.5-16.9 L HEMATOCRIT (test code = HCT) 31.6 % 37.5-50.7 L MEAN CELL VOLUME (test code = 86.3 fL 81.0-99.0 N MCV) MEAN CELL HGB (test code = MCH) 28.1 pg 27.0-33.0 N MEAN CELL HGB CONCETRATION 32.6 g/dL 33.0-37.0 L (test code = MCHC) RED CELL DISTRIBUTION WIDTH CV 13.9 % 11.5-14.5 N (test code = RDW) RED CELL DISTRIBUTION WIDTH SD 44.3 fL 37.0-54.0 N (test code = RDW-SD) PLATELET COUNT (test code = 451 x10 3/uL 150-400 H PLT) MEAN PLATELET VOLUME (test code 9.5 fL 7.0-9.0 H = MPV) NEUTROPHIL % (test code = NT%) 83.9 % 56.0-77.0 H IMMATURE GRANULOCYTE % (test 0.4 % 0.0-2.0 N code = IG%) LYMPHOCYTE % (test code = LY%) 7.1 % 14.0-32.0 L MONOCYTE % (test code = MO%) 8.1 % 4.8-9.0 N EOSINOPHIL % (test code = EO%) 0.4 % 0.3-3.7 N BASOPHIL % (test code = BA%) 0.1 % 0.0-2.0 N NUCLEATED RBC % (test code = 0.0 % 0-0 N NRBC%) NEUTROPHIL # (test code = NT#) 9.37 x10 3/uL 2.0-7.6 H IMMATURE GRANULOCYTE # (test 0.05 x10 3/uL 0.00-0.03 H code = IG#) LYMPHOCYTE # (test code = LY#) 0.79 x10 3/uL 1.0-3.8 L MONOCYTE # (test code = MO#) 0.90 x10 3/uL 0.1-0.8 H EOSINOPHIL # (test code = EO#) 0.05 x10 3/uL 0.0-0.2 N BASOPHIL # (test code = BA#) 0.01 x10 3/uL 0.0-0.2 N NUCLEATED RBC # (test code = 0.00 x10 3/uL 0.0-0.1 N NRBC#) MANUAL DIFF REQUIRED (test code NO = MDIFF) CBC W/AUTO [id number] 08:15:00 Test Item Value Reference Range Interpretation Comments WHITE BLOOD CELL (test code = 7.3 x10 3/uL 4.5-11.0 N WBC) RED BLOOD CELL (test code = 3.69 x10 6/uL 4.00-5.60 L RBC) HEMOGLOBIN (test code = HGB) 10.4 g/dL 12.5-16.9 L HEMATOCRIT (test code = HCT) 32.8 % 37.5-50.7 L MEAN CELL VOLUME (test code = 88.9 fL 81.0-99.0 N MCV) MEAN CELL HGB (test code = MCH) 28.2 pg 27.0-33.0 N MEAN CELL HGB CONCETRATION 31.7 g/dL 33.0-37.0 L (test code = MCHC) RED CELL DISTRIBUTION WIDTH CV 13.7 % 11.5-14.5 N (test code = RDW) RED CELL DISTRIBUTION WIDTH SD 44.6 fL 37.0-54.0 N (test code = RDW-SD) PLATELET COUNT (test code = 283 x10 3/uL 150-400 N PLT) MEAN PLATELET VOLUME (test code 9.9 fL 7.0-9.0 H = MPV) NEUTROPHIL % (test code = NT%) 62.0 % 56.0-77.0 N IMMATURE GRANULOCYTE % (test 0.7 % 0.0-2.0 N code = IG%) LYMPHOCYTE % (test code = LY%) 20.8 % 14.0-32.0 N MONOCYTE % (test code = MO%) 7.7 % 4.8-9.0 N EOSINOPHIL % (test code = EO%) 8.1 % 0.3-3.7 H BASOPHIL % (test code = BA%) 0.7 % 0.0-2.0 N NUCLEATED RBC % (test code = 0.0 % 0-0 N NRBC%) NEUTROPHIL # (test code = NT#) 4.51 x10 3/uL 2.0-7.6 N IMMATURE GRANULOCYTE # (test 0.05 x10 3/uL 0.00-0.03 H code = IG#) LYMPHOCYTE # (test code = LY#) 1.51 x10 3/uL 1.0-3.8 N MONOCYTE # (test code = MO#) 0.56 x10 3/uL 0.1-0.8 N EOSINOPHIL # (test code = EO#) 0.59 x10 3/uL 0.0-0.2 H BASOPHIL # (test code = BA#) 0.05 x10 3/uL 0.0-0.2 N NUCLEATED RBC # (test code = 0.00 x10 3/uL 0.0-0.1 N NRBC#) BASIC METABOLIC [id number] 07:28:00 Test Item Value Reference Range Interpretation [...] 8.6 mg/dL 8.0-10.5 N CA) BASIC METABOLIC [id number] 07:46:00 Test Item Value Reference Range Interpretation [...] recommended for jose miguel for GFRby the [facility] Kidney Foundati on for Adults.The GFR will not calculate if th e sex is unknown or if thepatient's ag e is <18 years. CREATININE (test 0.8 mg/dL 0.6-1.3 N code = CREAT) CALCIUM (test code = 8.7 mg/dL 8.0-10.5 N CA) CBC W/AUTO [id number] 07:34:00 Test Item Value Reference Range Interpretation [...] x10 3/uL 0.0-0.1 N NRBC#) CBC W/AUTO [id number] 08:43:00 Test Item Value Reference Range Interpretation [...] (test code NO = MDIFF) BASIC METABOLIC [id number] 07:14:00 Test Item Value Reference Range Interpretation [...] recommended for jose miguel for GFRby the [facility] Kidney Foundati on for Adults.The GFR will not calculate if th e sex is unknown or if thepatient's ag e is <18 years. CREATININE (test 0.8 mg/dL 0.6-1.3 N code = CREAT) CALCIUM (test code = 7.8 mg/dL 8.0-10.5 L CA) CBC W/AUTO [id number] 08:58:00 Test Item Value Reference Range Interpretation [...] (test code NO = MDIFF) BASIC METABOLIC [id number] 08:27:00 Test Item Value Reference Range Interpretation [...] recommended for jose miguel for GFRby the [facility] Kidney Foundati on for Adults.The GFR will not calculate if th e sex is unknown or if thepatient's ag e is <18 years. CREATININE (test 0.9 mg/dL 0.6-1.3 N code = CREAT) CALCIUM (test code = 8.2 mg/dL 8.0-10.5 N CA) [id number] 08:34:00 Test Item Value Reference Range Interpretation Comments HGBA1C% (test code = HGBA1C%) 5.1 %A1C 4.8-6.0 N CBC W/AUTO [id number] 08:05:00 Test Item Value Reference Range Interpretation [...] (test NO code = MDIFF) BASIC METABOLIC [id number] 07:46:00 Test Item Value Reference Range Interpretation [...] recommended for jose miguel for GFRby the [facility] Kidney Foundati on for Adults.The GFR [...] RATIOS: RISK CHOLHDL) MALE FEMALE1/2 AVERAGE 3.43 3.27AVERAG E 4.97 4.442X AVERAGE 9.55 7.053X AVERAGE 23.39 [...] (test code = LDL) NEAR OPTIM AL/ABOVE [id number] VPTMTARBHF455-5 89 HIGH>ZI=459 BRIELLE Y HIGH*Guidelines provided by the National Choles terol EducationProgra Adult Treatment Panel III [id number] 07:46:00 Test Item Value Reference Range Interpretation Comments PHOSPHOROUS (test code = PHOS) 3.4 MG/DL 2.5-4.9 N [id number] 07:46:00 Test Item Value Reference Range Interpretation Comments MAGNESIUM (test code = 1.69 mg/dL 1.6-2.6 N NOTE: NEW NORMAL MAG) RANGE TSH REFLEX TO [id number] 07:46:00 Test Item Value Reference Range Interpretation Comments TSH REFLEX TO FT4 (test code = 2.37 IU/mL 0.42-5.47 N TSHREFLEX) LACTIC [id number] 05:48:00 Test Item Value Reference Range Interpretation Comments LACTIC ACID (test code = LACT) 1.1 mmol/L 0.4-1.9 N LACTIC ACID [id number] 02:38:00 Test Item Value Reference Range Interpretation Comments LACTIC ACID REPEAT (test code = 0.9 mmol/l 0.4-1.9 N LACTR) CALLED SEVERINO @01:18 TO REMIND WE NEEDED REPEATLACTIC [id number] 22:36:00 Test Item Value Reference Range Interpretation Comments LACTIC ACID (test code = LACT) 2.9 mmol/L 0.4-1.9 H UA RFLX MICR CULT IF [id number] 22:35:00 Test Item Value Reference Range Interpretation [...] Less than 14 days- CT ABD PELVIS [id number] 22:24:00 [facility] : 1960 Sex: M Name: OSMAR CASTILLO [facility] : 1960 Age/S: 62 / M [address] [place] [address] Unit #: [id number] Loc: [place] [address] Phys: Vee HortonP Acct: [id number] Dis Date: Status: REG ER PHONE #: [phone] Exam Date: 01/04/2023 0940 FAX #: [phone] Reason: GROSS HEMATURIA EXAMS: CPT CODE: [id number] CT ABD PELVIS W/CONT 87845 H 20 TIME OF STUDY: 01/04/2023 7:55 PM REASON FOR EXAM: GROSS HEMATURIA COMPARISON: None. [...] age-appropriate. CT Pelvis: Bladder is decompressed with aFoley in place which significantly limits evaluation. The prostate gland is severely enlarged measuring approximately 7.4 x 6.2 cm in maximum dimension. Surgical clips are noted in the prostate. IMPRESSION: 1. Prostatomegaly. Decompressed bladder with a Black in place. 2. No hydronephrosis. No enhancing renal masses. 3. Cholelithiasis and mildly distended gallbladder. 4. Moderate hiatal hernia. PAGE 1 Signed Report (CONTINUED) Name: OSMAR CASTILLO [facility] [place] : 1960 Age/S: 62 / M [address] [place] [address] Unit #: [id number] Loc: [place] [address] Phys: Vee Horton APRNNP Acct: [id number] Dis Date: Status: REG ER PHONE #: [phone] Exam Date: 01/04/2023939 FAX #: Reason: GROSS HEMATURIA EXAMS: CPT CODE: [id number] CT ABD PELVIS W/CONT 03189 (Continued) at 2224 Reported and signed by: Zia Magaña M.D. CC: Lakhwinder Guillermo MD; Vee Horton; Javier Sullivan MD Technologist:Latoya cerna, RT(R); Lesvia Humphries CTDI: DLP: Trnscb Date/Time: 01/04/2023 (2223) t.TUNGR.SI1 Orig Print D/T: S: 01/04/2023 (2226) PAGE 2 Signed ReportCOMPREHENSIVE METABOLIC [id number] 21:07:00 Test Item Value Reference Range Interpretation [...] TOTAL (test code = ALKP) CBC W/AUTO [id number] 20:38:00 Test Item Value Reference Range Interpretation [...] (test NO code = MDIFF) BASIC METABOLIC [id number] 08:30:00 Test Item Value Reference Range Interpretation [...] orted result: 4.9 mg/ dLEdited by: [email or web address] kaitlin noyola 10/31/22:588489 0829: CA previo usly reported as: 4. 9 *L mg/dL Critical result [place] [address]/16/22 N eligio read back result and tech confirmed it's correct? 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 [facility] GLUCOSE [id number] 08:49:00 Test Item Value Reference Range Interpretation Comments GLUCOSE BEDSIDE (test 117 MG/DL 70-110 H Perfor med by certified code = GLUBED) 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 [facility] BASIC METABOLIC [id number] 07:57:00 Test Item Value Reference Range Interpretation [...] = 8.1 mg/dL 8.0-10.5 N CA) GLUCOSE [id number] 17:07:00 Test Item Value Reference Range Interpretation Comments GLUCOSE BEDSIDE (test 127 MG/DL 70-110 H Perfor med by certified code = GLUBED) 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 [facility] GLUCOSE [id number] 12:26:00 Test Item Value Reference Range Interpretation Comments GLUCOSE BEDSIDE (test 123 MG/DL 70-110 H Perfor med by certified code = GLUBED) 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 [facility] GLUCOSE [id number] 07:59:00 Test Item Value Reference Range Interpretation Comments GLUCOSE BEDSIDE (test 92 MG/DL 70-110 N Perfor med by certified code = GLUBED) 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 [facility] BASIC METABOLIC [id number] 07:38:00 Test Item Value Reference Range Interpretation [...] 7.8 mg/dL 8.0-10.5 L CA) CBC W/AUTO [id number] 07:27:00 Test Item Value Reference Range Interpretation [...] REQUIRED (test NO code = MDIFF) GLUCOSE [id number] 21:25:00 Test Item Value Reference Range Interpretation Comments GLUCOSE BEDSIDE (test 154 MG/DL 70-110 H Perfor med by certified code = GLUBED) 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 [facility] GLUCOSE [id number] 17:43:00 Test Item Value Reference Range Interpretation Comments GLUCOSE BEDSIDE (test 73 MG/DL 70-110 N Perfor med by certified code = GLUBED) 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 [facility] GLUCOSE [id number] 10:08:00 Test Item Value Reference Range Interpretation Comments GLUCOSE BEDSIDE (test 87 MG/DL 70-110 N Perfor med by certified code = GLUBED) 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 [facility] GLUCOSE [id number] 20:12:00 Test Item Value Reference Range Interpretation Comments GLUCOSE BEDSIDE (test 139 MG/DL 70-110 H Perfor med by certified code = GLUBED) 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 [facility] GLUCOSE [id number] 17:32:00 Test Item Value Reference Range Interpretation Comments GLUCOSE BEDSIDE (test 79 MG/DL 70-110 N Perfor med by certified code = GLUBED) 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 [facility] GLUCOSE [id number] 12:14:00 Test Item Value Reference Range Interpretation Comments GLUCOSE BEDSIDE (test 98 MG/DL 70-110 N Perfor med by certified code = GLUBED) 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 [facility] GLUCOSE [id number] 08:36:00 Test Item Value Reference Range Interpretation Comments GLUCOSE BEDSIDE (test 92 MG/DL 70-110 N Perfor med by certified code = GLUBED) 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 [facility] BASIC METABOLIC [id number] 07:50:00 Test Item Value Reference Range Interpretation [...] code = 7.6 mg/dL 8.0-10.5 L CA) [id number] 07:50:00 Test Item Value Reference Range Interpretation Comments MAGNESIUM (test code = MAG) 1.53 mg/dL 1.80-2.40 L - CTA CHEST FOR [id number] 00:00:00 [facility] : 1960 Sex: M Name: OSMAR CASTILLO [facility] : 1960 Age/S: 62 / M [address] [place] [address] BlvdUnit #: [id number] Loc: [place] [address] Phys: Sofia Cheng GRAIN PROCESSOR Acct: [id number] Dis Date: Status: ADM IN PHONE #: [phone] Exam Date: 10/23/2022 1724 FAX #: [phone] Reason: ELEVATED D DIMER EXAMS: CPT CODE: [id number] [place] [address] PROCEDURE INFORMATION: Exam: CTA Chest With C ontrast Exam date and time: 10/23/2022 5:24 PM [...] Extensive colonic wall thickening of the visualized s plenic PAGE 1 Signed Report (CONTINUED) Name: OSMAR CASTILLO [facility] : 1960Age/S: 62 / M [address] [place] [address] Unit #: [id number] Loc: [place] [address] Phys: Sofia Cheng GRAIN PROCESSOR Acct: [id number] Dis Date: Status: ADM IN PHONE #: [phone] Exam Date: 10/23/2022 1724 FAX #: [phone] Reason: ELEVATED D DIMER EXAMS: CPT CODE: [id number] [place] [address] (Continued) flexure compatible with colitis incompletely evaluated. [...] by: Hayden Rg M.D. CC: Sofia Cheng GRAIN PROCESSOR; [place] Dukes MD Technologist:Latoya Pérez, RT(R)(CT); . 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 [facility] GLUCOSE [id number] 17:34:00 Test Item Value Reference Range Interpretation Comments GLUCOSE BEDSIDE (test 132 MG/DL 70-110 H Perfor med by certified code = GLUBED) 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 [facility] GLUCOSE [id number] 11:57:00 Test Item Value Reference Range Interpretation Comments GLUCOSE BEDSIDE (test 118 MG/DL 70-110 H Perfor med by certified code = GLUBED) 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 [facility] GLUCOSE [id number] 08:22:00 Test Item Value Reference Range Interpretation Comments GLUCOSE BEDSIDE (test 100 MG/DL 70-110 N Perfor med by certified code = GLUBED) 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 [facility] BASIC METABOLIC [id number] 08:05:00 Test Item Value Reference Range Interpretation [...] recommended for jose miguel for GFRby the [facility] for Adults.The GFR will not calculate if th e sex is unknown or if thepatient's ag e is <18 years. 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 [facility] GLUCOSE [id number] 17:29:00 Test Item Value Reference Range Interpretation Comments GLUCOSE BEDSIDE (test 102 MG/DL 70-110 N Perfor med by certified code = GLUBED) 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 [facility] GLUCOSE [id number] 11:54:00 Test Item Value Reference Range Interpretation Comments GLUCOSE BEDSIDE (test 104 MG/DL 70-110 N Perfor med by certified code = GLUBED) 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 [facility] CBC W/MANUAL [id number] 10:35:00 Test Item Value Reference Range Interpretation [...] (test LARGE PLATELETS code = PLTMORPH) GLUCOSE [id number] 07:57:00 Test Item Value Reference Range Interpretation Comments GLUCOSE BEDSIDE (test 95 MG/DL 70-110 N [facility] med by certified code = GLUBED) 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 [facility] C REACTIVE [id number] 07:48:00 Test Item Value Reference Range Interpretation Comments C REACTIVE PROTEIN (test code = 36.0 mg/L <10.0 H CRP) BASIC METABOLIC [id number] 07:40:00 Test Item Value Reference Range Interpretation [...] code = 7.3 mg/dL 8.0-10.5 L CA) [id number] 07:40:00 Test Item Value Reference Range Interpretation Comments MAGNESIUM (test code = MAG) 1.50 mg/dL 1.80-2.40 L [id number] 07:04:00 Test Item Value Reference Range Interpretation Comments D-DIMER (test 5949 ng/mlFEU See_Comment HH Critical resu lt called to code = Jennifer RUIZ y G.LAB.JJ1 DDIMER) at 700 3Nurse read back result and tech confirmed it's correct? YESTHROMBOSIS A ND/OR PULMONARY EMBOL ISM AND THE CLINICAL CUT- O FF VALUE FOR EXCLUSION (500 ng/mL FEU) OF THESE CONDIT IONSIS VALIDATED BY E KAITARA TARAKA OF THE METHOD. A NEGATIVE D-DI JET [...] result as normal/abnormal . - DUP VEIN [id number] 00:00:00 [facility] MAREN HUANGName: OSMAR CASTILLO : 1960 Sex: M Name: OSMAR CASTILLO [facility] Maren Huang : 1960 Age/S: 62 / [place] [address] [place] [address] BlvdUnit #: [id number] Loc: KobyGREG [address] Phys: Skip Jaffe MD Acct: [id number] Dis Date: Status: ADM IN PHONE #: [phone] Exam Date: 10/21/2022820 FAX #: [phone] Reason: R/o DVT EXAMS: CPT CODE: [id number] DUP VEIN ASAEL [id number] PROCEDURE INFORMATION: Exam: US Duplex Lower Extremity [...] MD; Salinas Dukes MD Technologist: Yesica Baker [facility] Date/Time: 10/21/2022 (911) [email or web address] Orig Print D/T: S: 10/21/2022 (911) Probe: PAGE 1 Signed Report GLUCOSE [id number] 20:40:00 Test Item Value Reference Range Interpretation Comments GLUCOSE BEDSIDE (test 148 MG/DL 70-110 H Perfor med by certified code = GLUBED) 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 [facility] GLUCOSE [id number] 16:46:00 Test Item Value Reference Range Interpretation Comments GLUCOSE BEDSIDE (test 118 MG/DL 70-110 H Perfor med by certified code = GLUBED) 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 Results from di fferent methodologies s hould not becompared to o ne another as quantitative results and URLs mayvar y by method. BASIC METABOLIC [id number] 15:04:00 Test Item Value Reference Range Interpretation [...] 7.1 mg/dL 8.0-10.5 L CA) TROP-I HIGH [id number] 10:07:00 Test Item Value Reference Range Interpretation [...] URLs mayvar y by method. CBC W/AUTO [id number] 09:54:00 Test Item Value Reference Range Interpretation [...] (test NO code = MDIFF) TROP-I HIGH [id number] 09:24:00 Test Item Value Reference Range Interpretation [...] These resu lts were obtained using Siemens AtellBizily IM TnI Hreagent. Results from di fferent methodologies s hould not becompared to o ne another as quantitative results and URLs mayvar y by method. 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 THROMBOPLASTIN TIME [id number] 02:05:00 Test Item Value Reference Range Interpretation Comments THROMBOPLASTIN TIME 26.1 Seconds 25.0-39.5 N Therape utic Range: PARTIAL (test code = 50.4 - 88.3 Seconds PTT) Effective 07/21/2018 LACTIC [id number] 01:59:00 Test Item Value Reference Range Interpretation Comments LACTIC ACID (test code = LACT) 1.1 mmol/L 0.4-1.9 N CBC W/AUTO [id number] 01:51:00 Test Item Value Reference Range Interpretation [...] code = MDIFF) - XR CHEST 1 [id number] 00:00:00 [facility] SINCERE : 1960 Sex: M FAX: Sofia Cheng NP [phone] [place]: St: ADM FAX: Salinas Callahan I [phone] --- Name: MARYANNE CASTILLO [facility] : 1960 Age/S: 62/M [address] [place] [address] Unit #: [id number] Loc: G.6630 [place] [address] Phys: Sofia Cheng NP Acct: [id number] Dis Date: Status: ADM IN PHONE #: Exam Date: 10/20/2022106 FAX #: [phone] Reason: Sepsis EXAMS: CPT CODE: [id number] XR CHEST 1 V 55445 PROCEDURE INFORMATION: Exam: XR Chest Exam date and time: 10/20/2022 1:02 AM Age: 62 years old Clinical indication: Pain; Other: Sepsis TECHNIQUE: Imaging protocol: Radiologic exam ofthe chest. Views: 1 view. COMPARISON: CT CHEST [...] by: Reinaldo Jacobs M.D. 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 The test result should be correlated into the clinical context forinte rpretation. UR PROTEIN [id number] 20:03:00 Test Item Value Reference Range Interpretation Comments UR PROTEIN RANDOM (test code = 79 mg/dL PROTU) UR CREATININE [id number] 20:03:00 Test Item Value Reference Range Interpretation Comments UR CREATININE 111.9 mg/dL The Reference Range and RANDOM (test code Method Per formance = CREATU) specificationsh ave not been establishe d for this fluid. The test resultshould be correlated into the clinical contex t forinterpretati on. 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 [facility] GLUCOSE [id number] 12:48:00 Test Item Value Reference Range Interpretation Comments GLUCOSE BEDSIDE (test 109 MG/DL 70-110 N Perfor med by certified code = GLUBED) 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 [facility] GLUCOSE [id number] 18:07:00 Test Item Value Reference Range Interpretation Comments GLUCOSE BEDSIDE (test 98 MG/DL 70-110 N Perfor med by certified code = GLUBED) 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 [facility] GLUCOSE [id number] 12:23:00 Test Item Value Reference Range Interpretation Comments GLUCOSE BEDSIDE (test 135 MG/DL 70-110 H Perfor med by certified code = GLUBED) 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 [facility] GLUCOSE [id number] 11:22:00 Test Item Value Reference Range Interpretation Comments GLUCOSE BEDSIDE (test 104 MG/DL 70-110 N Perfor med by certified code = GLUBED) 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 [facility] BASIC METABOLIC [id number] 08:12:00 Test Item Value Reference Range Interpretation [...] code = 7.4 mg/dL 8.0-10.5 L CA) [id number] 08:12:00 Test Item Value Reference Range Interpretation Comments MAGNESIUM (test code = MAG) 1.48 mg/dL 1.80-2.40 L CBC W/AUTO [id number] 08:09:00 Test Item Value Reference Range Interpretation [...] REQUIRED (test code NO = MDIFF) GLUCOSE [id number] 05:56:00 Test Item Value Reference Range Interpretation Comments GLUCOSE BEDSIDE (test 104 MG/DL 70-110 N Perfor med by certified code = GLUBED) 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 [facility] GLUCOSE [id number] 03:31:00 Test Item Value Reference Range Interpretation Comments GLUCOSE BEDSIDE (test 129 MG/DL 70-110 H Perfor med by certified code = GLUBED) 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 [facility] GLUCOSE [id number] 12:50:00 Test Item Value Reference Range Interpretation Comments GLUCOSE BEDSIDE (test 177 MG/DL 70-110 H Perfor med by certified code = GLUBED) 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 [facility] CBC W/AUTO [id number] 10:14:00 Test Item Value Reference Range Interpretation [...] 0.0-0.1 N code = NRBC#) VITAMIN D [id number] 08:19:00 Test Item Value Reference Range Interpretation Comments VITAMIN D 25-HYDROXY (test code = 25.5 ng/mL 30-100 L VITD25) Indication for Test: PTH DisorderCOMPREHENSIVE METABOLIC [id number] 08:14:00 Test Item Value Reference Range Interpretation [...] 20-125 N TOTAL (test code = ALKP) [id number] 08:14:00 Test Item Value Reference Range Interpretation Comments PHOSPHOROUS (test code = PHOS) 2.6 MG/DL 2.5-4.9 N [id number] 08:14:00 Test Item Value Reference Range Interpretation Comments MAGNESIUM (test code = MAG) 1.50 mg/dL 1.80-2.40 L GLUCOSE [id number] 07:40:00 Test Item Value Reference Range Interpretation Comments GLUCOSE BEDSIDE (test 105 MG/DL 70-110 N Perfor med by certified code = GLUBED) 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 TSH REFLEX TO [id number] 14:32:00 Test Item Value Reference Range Interpretation Comments TSH REFLEX TO FT4 (test code = 1.59 IU/mL 0.42-5.47 N TSHREFLEX) [id number] 14:19:00 Test Item Value Reference Range Interpretation Comments HGBA1C% (test code = HGBA1C%) 5.5 %A1C 4.8-6.0 N [id number] 14:13:00 Test Item Value Reference Range Interpretation Comments MAGNESIUM (test code = MAG) 1.91 mg/dL 1.80-2.40 N COMPREHENSIVE METABOLIC [id number] 14:13:00 Test Item Value Reference Range Interpretation [...] 20-125 N TOTAL (test code = ALKP) GLUCOSE [id number] 12:54:00 Test Item Value Reference Range Interpretation Comments GLUCOSE BEDSIDE (test 102 MG/DL 70-110 N Perfor med by certified code = GLUBED) 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
--- NOTE | 2023-02-05 19:05 | EDPHYS ---
Physician Documentation [facility] Name: Mathew Porter Age: 62 yrs Sex: Male : 1960 Arrival Date: 02/05/2023 Time: 18:30 Bed 10 Private MD: ED Physician Ignacio Gillespie HPI: 02/05 18:58 This 62 yrs old Male presents to ER via Ambulatory with complaints of Needs Urinary kb Catheter Replacement. 18:59 Onset: The symptoms/episode began/occurred today. Family states pt has had urinary kb retention a few times due to an enlarged prostate. States pt normally waits 2-3 days into the retention before seeking treatment, then his kidney function starts going down and he retains fluid in the kidneys. States he had a follow up with urology this morning and had his johns removed. They were told to come to the local ER for johns placement if he wasn't urinating normally within 6-8 hours. States he has been able to get small amounts out since johns removal, but feels like his bladder is full and is unable to urinary fully. Came in to get johns placed and will follow up with urologist in [place] tomorrow. . Historical: - Allergies: 18:43 No Known Allergies; ll1 - PMHx: 18:43 Schizophrenia; ll1 - PSHx: 18:43 Urolift (January 03); ll1 - Immunization history:: Adult Immunizations up to date. - Social history:: Smoking status: Patient/guardian denies using tobacco, Stopped _ months ago 4. ROS: 18:58 Constitutional: Negative for fever, chills, and weight loss, kb 18:58 : Positive for urinary retention, 18:58 All other systems are negative, Exam: 18:58 Constitutional: This is a well developed, well nourished patient who is awake, alert, kb and in no acute distress. Head/Face: Normocephalic, atraumatic. ENT: Moist Mucous membranes Respiratory: Respirations even and unlabored. No increased work of breathing. Talking in full sentences Abdomen/GI: Soft, non-tender. No distention Skin: Warm, dry with normal turgor. Normal color. MS/ Extremity: Pulses equal, no cyanosis. Neurovascular intact. Full, normal range of motion. Neuro: Awake and alert, GCS 15, oriented to person, place, time, and situation. Moves all extremities. Normal gait. Vital Signs: 18:42 BP 118 / 83; Pulse 113; Resp 18; Temp 98.4; Pulse Ox 96% ; Weight 70.76 kg; Height 5 ll1 ft. 10 in. ; Pain 7/10; 18:42 Body Mass Index 22.38 (70.76 kg, 177.8 cm) ll1 18:42 Pain Scale: Adult ll1 MDM: 18:35 Patient medically screened. kb 18:58 Differential diagnosis: UTI, urinary retention. Data reviewed: vital signs, nurses kb notes. Historians other than the Patient: Family Member: granddaughter. Counseling: I had a detailed discussion with the patient and/or guardian regarding the historical points, exam findings, and any diagnostic results supporting the discharge/admit diagnosis, the need for outpatient follow up, a urologist, to return to the emergency department if symptoms worsen or persist or if there are any questions or concerns that arise at home. 19:03 Test considered but Not performed: Labs: cbc, bmp considered, but family states they kb just need the johns put in and will follow up. Does not want other tests run at this time. 02/05 18:43 Order name: Johns; Complete Time: 18:54 kb Administered Medications: No medications were administered Disposition Summary: 02/05/23 19:04 Discharge Ordered Notes: Location: Home kb Condition: Stable kb Diagnosis - Retention of urine, unspecified kb Followup: kb - With: Emergency Department - When: As needed - Reason: Worsening of condition Followup: kb - With: Private Physician - When: 2 - 3 days - Reason: Recheck today's complaints, Continuance of care, Re-evaluation by your physician Discharge Instructions: - Discharge Summary Sheet kb - Acute Urinary Retention, Male, Zagz-tj-Xjna kb - Indwelling Urinary Catheter Care, Adult, Kawa-gt-Urps kb Forms: - Medication Reconciliation Form kb - Thank You Letter kb - Antibiotic Education kb - Prescription Opioid Use kb - Patient Portal Instructions kb - Leadership Thank You Letter kb Addendum: 02/10/2023 10:06 I was immediately available for consultation during this patient's visit. I did not e c2 personally see the patient or guide the patient's care.. Signatures: Brit Zapata, DEBURRING AND TOOLING MACHINE OPERATOR-C DEBURRING AND TOOLING MACHINE OPERATOR-Ckb Brandt Stout, DEENA RN ll1 Ignacio Gillespie MD MD ec2
--- NOTE | 2023-02-05 19:05 | ER ---
Nurse's Notes [facility] Name: Mathew Porter Age: 62 yrs Sex: Male : 1960 Arrival Date: 02/05/2023 Time: 18:30 Bed 10 Private MD: Diagnosis: Retention of urine, unspecified Presentation: 02/05 18:42 Chief complaint: Patient states: Took his Mercer out at 10 AM. Unable to void well ll1 since. Wants a new Mercer placed so they can follow-up later. Coronavirus screen: Client denies travel out of the [place] in the last 14 days. At this time, the client does not indicate any symptoms associated with coronavirus-19. Ebola Screen: Patient denies travel to an Ebola-affected area in the 21 days before illness onset. Initial Sepsis Screen: Does the patient meet any 2 criteria? No. Patient's initial sepsis screen is negative. Does the patient have a suspected source of infection? Yes: Dysuria/Frequency/Urgency/UTI. Risk Assessment: Do you want to hurt yourself or someone else? Patient reports no desire to harm self or others. Onset of symptoms was February 05, 2023. 18:42 Method Of Arrival: Ambulatory ll1 18:42 Acuity: JAMILA 4 ll1 Triage Assessment: 19:16 General: Appears in no apparent distress. Behavior is calm, cooperative. Pain: Denies ap3 pain. Historical: - Allergies: 18:43 No Known Allergies; ll1 - PMHx: 18:43 Schizophrenia; ll1 - PSHx: 18:43 Urolift (January 03); ll1 - Immunization history:: Adult Immunizations up to date. - Social history:: Smoking status: Patient/guardian denies using tobacco, Stopped _ months ago 4. Screenin:15 [facility] ED Fall Risk Assessment (Adult) History of falling in the last 3 months, ap3 including since admission No falls in past 3 months (0 pts). Abuse screen: Denies threats or abuse. Nutritional screening: No deficits noted. Tuberculosis screening: No symptoms or risk factors identified. Vital Signs: 18:42 BP 118 / 83; Pulse 113; Resp 18; Temp 98.4; Pulse Ox 96% ; Weight 70.76 kg; Height 5 ll1 ft. 10 in. ; Pain 7/10; 18:42 Body Mass Index 22.38 (70.76 kg, 177.8 cm) ll1 18:42 Pain Scale: Adult ll1 ED Course: 18:35 Patient arrived in ED. mg5 18:35 Brit Zapata FNP-C [facility]. kb 18:35 Ignacio Gillespie MD is Attending Physician. kb 18:43 Triage completed. ll1 18:44 Arm band placed on. ll1 18:45 Loida Queen, RN is Primary Nurse. ap3 19:16 No provider procedures requiring assistance completed. Patient did not have IV access ap3 during this emergency room visit. 19:17 Patient has correct armband on for positive identification. Bed in low position. Call ap3 light in reach. Side rails up X2. Adult w/ patient. Provided Education on: discharge instructions. Administered Medications: No medications were administered Medication: 19:17 VIS not applicable for this client. ap3 Outcome: 19:04 Discharge ordered by . kb 19:16 Discharged to home ambulatory, with family, ap3 19:16 Condition: good 19:16 Discharge instructions given to patient, family, Instructed on discharge instructions, follow up and referral plans. 19:17 Patient left the ED. ap3 Signatures: Brit Zapata FNP-C FNP-Edb Loida Queen, RN RN ap3 Brandt Stout RN RN 1 Collette Tamayo mg5
[2023-02-05 19:22] VITALS: BP 118/83; TEMP 98.4; O2SAT 96
== END 2023-02-05 19:17 | disposition home or self-care (01) ==
LOC: ER 18:30
PROC: 0T2BX0Z Change Drainage Device in Bladder, External Approach (ICD-10-PCS; principal; 2023-02-05)
DX: R33.9 Retention of urine, unspecified (principal)
CPT/HCPCS: 99282

== ENCOUNTER 2023-02-08 12:57 | Emergency (ER) | payer OTHER ==
--- OUTSIDE RECORDS SUMMARY | 2023-02-08 13:03 | XMS REPORT | Continuity of Care Document ---
:1960 Author Organization [facility] t Address [address] [facility] [address] [place] [address] Care Team Providers Name Role Phone Salinas [...] Known DA Active U [facility]ie 7-12 [facility] [place] s 00:00: d 00 [facility] Medications This patient has no known medications. Procedures This patient has no known procedures. Encounters Start End Encounter Admission Attending Care Care Encounter Source Date/Time Date/Time Type Type Clinicians Facility Department ID 2023-01-21 2023-01-22 [facility] [id number] [facility] 06:38:00 20:00:00 Salinas Dukes 65 [facility] 2023-01-06 2023-01-11 [facility] [id number] [facility] 15:12:00 21:08:00 Salinas Dukes 41 Cl [facility] 2022-10-16 2022-10-26 Inpatient EM [facility] MEDI.01 [id number] [facility] 05:03:00 19:41:00 Salinas Dukes 28 Cl [facility] Results Test Description Test Time Test Comments Results Result [facility] alexandra Comments - CT ABD PELVIS 2023-01-05 W/CONT 8 13:00:00 [facility] 1960 Sex: M Name: OSMAR CASTILLO [facility] : 1960 Age/S: 62 / M [address] [place] [address] Blvd Unit #: [id number] Loc: [place] [address] Phys: Sofia Cheng WEAVER AXMINSTER Acct: [id number] Dis Date: Status: ADM IN PHONE #: [phone] Exam Date: 01/22/2023 1231 FAX #: [phone] Reason: ABD PAIN EXAMS: CPT CODE: [id number] CT ABD PELVIS W/CONT 03525 EXAM: CT abdomen and pelvis with contrast Dictation location: INDICATION: Abdominal pain COMPARISON: CT abdomen and [...] 1 Signed Report (CONTINUED) Name: OSMAR CASTILLO [facility] : 1960 Age/S: 62 / M [address] [place] [address] Blvd Unit #: [id number] Loc: [place] [address] Phys: Sofia Cheng WEAV[employer]MINSTER Acct: [id number] Dis Date: Status: ADM IN PHONE #: [phone] Exam Date: 01/22/2023 1231 FAX #: [phone] Reason: ABD PAIN EXAMS: CPT CODE: [id number] CT ABD PELVIS W/CONT 89166 (Continued) abdominal aortic aneurysm. Pelvic organs/bladder: Moderate [...] (1300) t.SDR.BC0 Orig Print D/T: S: 01/22/2023 (6172) PAGE 2 Signed Report BASIC METABOLIC PANEL [...] code = CA) 7.4 mg/dL 8.0-10.5 L [id number] 07:46:00 Test Item Value Reference Range Interpretation Comments PHOSPHOROUS (test code = PHOS) 2.4 MG/DL 2.5-4.9 L [id number] 07:46:00 Test Item Value Reference Range Interpretation Comments MAGNESIUM (test code = 1.69 mg/dL 1.6-2.6 N NOTE: NEW NORMAL MAG) RANGE CBC W/AUTO [id number] 07:05:00 Test Item Value Reference Range Interpretation [...] x10 3/uL 0.0-0.1 N NRBC#) BASIC METABOLIC [id number] 06:08:00 Test Item Value Reference Range Interpretation [...] 8.2 mg/dL 8.0-10.5 N CA) CBC W/AUTO [id number] 05:57:00 Test Item Value Reference Range Interpretation [...] (test code NO = MDIFF) CBC W/AUTO [id number] 08:15:00 Test Item Value Reference Range Interpretation [...] x10 3/uL 0.0-0.1 N NRBC#) BASIC METABOLIC [id number] 07:28:00 Test Item Value Reference Range Interpretation [...] 8.6 mg/dL 8.0-10.5 N CA) BASIC METABOLIC [id number] 07:46:00 Test Item Value Reference Range Interpretation [...] recommended for jose miguel for GFRby the [facility] for Adults.The GFR will not calculate if th e sex is unknown or if thepatient's ag e is <18 years. CREATININE (test 0.8 mg/dL 0.6-1.3 N code = CREAT) CALCIUM (test code = 8.7 mg/dL 8.0-10.5 N CA) CBC W/AUTO [id number] 07:34:00 Test Item Value Reference Range Interpretation [...] x10 3/uL 0.0-0.1 N NRBC#) CBC W/AUTO [id number] 08:43:00 Test Item Value Reference Range Interpretation [...] (test code NO = MDIFF) BASIC METABOLIC [id number] 07:14:00 Test Item Value Reference Range Interpretation [...] recommended for jose miguel for GFRby the [facility] on for Adults.The GFR will not calculate if th e sex is unknown or if thepatient's ag e is <18 years. CREATININE (test 0.8 mg/dL 0.6-1.3 N code = CREAT) CALCIUM (test code = 7.8 mg/dL 8.0-10.5 L CA) CBC W/AUTO [id number] 08:58:00 Test Item Value Reference Range Interpretation [...] (test code NO = MDIFF) BASIC METABOLIC [id number] 08:27:00 Test Item Value Reference Range Interpretation [...] recommended for jose miguel for GFRby the [facility] on for Adults.The GFR will not calculate if th e sex is unknown or if thepatient's ag e is <18 years. CREATININE (test 0.9 mg/dL 0.6-1.3 N code = CREAT) CALCIUM (test code = 8.2 mg/dL 8.0-10.5 N CA) [id number] 08:34:00 Test Item Value Reference Range Interpretation Comments HGBA1C% (test code = HGBA1C%) 5.1 %A1C 4.8-6.0 N CBC W/AUTO [id number] 08:05:00 Test Item Value Reference Range Interpretation [...] (test NO code = MDIFF) BASIC METABOLIC [id number] 07:46:00 Test Item Value Reference Range Interpretation [...] recommended for jose miguel for GFRby the [facility] on for Adults.The GFR [...] (test code = LDL) NEAR OPTIM AL/ABOVE [id number] 89 HIGH>OY=017 BRIELLE Y HIGH*Guidelines provided by the National Choles terol EducationProgra Adult Treatment Panel III [id number] 07:46:00 Test Item Value Reference Range Interpretation Comments PHOSPHOROUS (test code = PHOS) 3.4 MG/DL 2.5-4.9 N [id number] 07:46:00 Test Item Value Reference Range Interpretation Comments MAGNESIUM (test code = 1.69 mg/dL 1.6-2.6 N NOTE: NEW NORMAL MAG) RANGE TSH REFLEX TO [id number] 07:46:00 Test Item Value Reference Range Interpretation Comments TSH REFLEX TO FT4 (test code = 2.37 IU/mL 0.42-5.47 N TSHREFLEX) LACTIC [id number] 05:48:00 Test Item Value Reference Range Interpretation Comments LACTIC ACID (test code = LACT) 1.1 mmol/L 0.4-1.9 N LACTIC ACID [id number] 02:38:00 Test Item Value Reference Range Interpretation Comments LACTIC ACID REPEAT (test code = 0.9 mmol/l 0.4-1.9 N LACTR) CALLED SEVERINO @01:18 TO REMIND WE NEEDED REPEATLACTIC [id number] 22:36:00 Test Item Value Reference Range Interpretation Comments LACTIC ACID (test code = LACT) 2.9 mmol/L 0.4-1.9 H UA RFLX MICR CULT IF [id number] 22:35:00 Test Item Value Reference Range Interpretation [...] Less than 14 days- CT ABD PELVIS [id number] 22:24:00 [facility] : 1960 Sex: M Name: OSMAR CASTILLO [facility] : 1960 Age/S: 62 / M [address] [place] [address] Unit #: [id number] Loc: [place] [address] Phys: Vee HortonP Acct: [id number] Dis Date: Status: REG ER PHONE #: [phone] Exam Date: 01/04/2023 0940 FAX #: [phone] Reason: GROSS HEMATURIA EXAMS: CPT CODE: [id number] CT ABD PELVIS W/CONT 04355 H 20 TIME OF STUDY: 01/04/2023 7:55PM REASON FOR EXAM: GROSS HEMATURIA COMPARISON: None. TECHNIQUE: Helical post contrast enhanced images were obtained through the abdomen and pelvis. Sagittal and coronal reformats were obtained and reviewed. One or more of the following radiation dose reduction techniques was used: automated exposure control, adjustment of mA and/or KV according to [...] appendix is visualized. There is no free fluidor free air. The osseous structures are age-appropriate. [...] distended gallbladder. 4. Moderate hiatal hernia. PAGE 1Signed Report (CONTINUED) Name: OSMAR CASTILLO [facility] : 1960 Age/S: 62 /M [address] [place] [address] Unit #: [id number] Loc: [place] [address] Phys: Vee HortonP Acct: [id number] Dis Date: Status: REG ER PHONE #: [phone] Exam Date: 01/04/2023 0940 FAX #: [phone] Reason: GROSS HEMATURIA EXAMS: CPT CODE: [id number] CT ABD PELVIS W/CONT 70831 (Continued) at 2224 Reported and signed by: Zia Magaña M.D. CC: Lakhwinder Guillermo MD; Vee Horton; Javier Sullivan MD Technologist:Latoya elder, RT(R); Lesvia Humphries CTDI: DLP: Trnscb Date/Time: 01/04/2023 (2223) t.TUNGR.SI1 Orig Print D/T: S: 01/04/2023 (2226) PAGE 2 Signed ReportCOMPREHENSIVE METABOLIC [id number] 21:07:00 Test Item Value Reference Range Interpretation [...] TOTAL (test code = ALKP) CBC W/AUTO [id number] 20:38:00 Test Item Value Reference Range Interpretation [...] (test NO code = MDIFF) BASIC METABOLIC [id number] 08:30:00 Test Item Value Reference Range Interpretation Comments SODIUM (test code = 140 mEq/L 134-147 N NA) POTASSIUM (test code 2.8 mEq/L 3.4-5.0 LL Critica l result called = K) [place] [address]/16/22Nurse sultana ead back resut and tech confirmed it's correct? Y CHLORIDE (test code 114 mEq/L 100-108 H = CL) CARBON DIOXIDE (test 18 mEq/l 21-33 L code = CO2) ANION GAP (test code 11 0-20 N = GAP) GLUCOSE (test code = 643 mg/dL 70-110 HH Critica l result called GLU) [place] [address]/16/22Neligio r ead back resut and tech confirmed [...] 4.9 mg/ dLEdited by: [email or web address] kaitlin noyola 10/31/22:320417 0829: CA previo usly reported as: 4. 9 *L mg/dL Critical [place] TF[place] [address]/16/22 N estradae read back result and tech confirmed it's correct? 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 [facility] GLUCOSE [id number] 08:49:00 Test Item Value Reference Range Interpretation Comments GLUCOSE BEDSIDE (test 117 MG/DL 70-110 H Perfor med by certified code = GLUBED) 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 [facility] BASIC METABOLIC [id number] 07:57:00 Test Item Value Reference Range Interpretation [...] = 8.1 mg/dL 8.0-10.5 N CA) GLUCOSE [id number] 17:07:00 Test Item Value Reference Range Interpretation Comments GLUCOSE BEDSIDE (test 127 MG/DL 70-110 H Perfor med by certified code = GLUBED) 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 [facility] GLUCOSE [id number] 12:26:00 Test Item Value Reference Range Interpretation Comments GLUCOSE BEDSIDE (test 123 MG/DL 70-110 H Perfor med by certified code = GLUBED) 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 [facility] GLUCOSE [id number] 17:43:00 Test Item Value Reference Range Interpretation Comments GLUCOSE BEDSIDE (test 73 MG/DL 70-110 N Perfor med by certified code = GLUBED) 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 [facility] GLUCOSE [id number] 10:08:00 Test Item Value Reference Range Interpretation Comments GLUCOSE BEDSIDE (test 87 MG/DL 70-110 N Perfor med by certified code = GLUBED) 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 [facility] GLUCOSE [id number] 20:12:00 Test Item Value Reference Range Interpretation Comments GLUCOSE BEDSIDE (test 139 MG/DL 70-110 H Perfor med by certified code = GLUBED) 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 [facility] GLUCOSE [id number] 17:32:00 Test Item Value Reference Range Interpretation Comments GLUCOSE BEDSIDE (test 79 MG/DL 70-110 N Perfor med by certified code = GLUBED) 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 [facility] GLUCOSE [id number] 12:14:00 Test Item Value Reference Range Interpretation Comments GLUCOSE BEDSIDE (test 98 MG/DL 70-110 N Perfor med by certified code = GLUBED) 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 [facility] GLUCOSE [id number] 08:36:00 Test Item Value Reference Range Interpretation Comments GLUCOSE BEDSIDE (test 92 MG/DL 70-110 N Perfor med by certified code = GLUBED) 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 [facility] BASIC METABOLIC [id number] 07:50:00 Test Item Value Reference Range Interpretation [...] code = 7.6 mg/dL 8.0-10.5 L CA) [id number] 07:50:00 Test Item Value Reference Range Interpretation Comments MAGNESIUM (test code = MAG) 1.53 mg/dL 1.80-2.40 L - CTA CHEST FOR [id number] 00:00:00 [facility] : 1960 Sex: M Name: OSMAR CASTILLO [facility] : 1960 Age/S: 62 / M [address] [place] [address] BlvdUnit #: [id number] Loc: [place] [address] Phys: Sofia Cheng WEAVER AXMINSTER Acct: [id number] Dis Date: Status: ADM IN PHONE #: [phone] Exam Date: 10/23/2022 1724 FAX #: [phone] Reason: ELEVATED D DIMER EXAMS: CPT CODE: [id number] [place] [address] PROCEDURE INFORMATION: Exam: CTA Chest With C [...] 1 Signed Report (CONTINUED) Name: OSMAR CASTILLO [facility] : 1960Age/S: 62 / M [address] [place] [address] Unit #: [id number] Loc: [place] [address] Phys: Sofia Cheng WEAV[employer] AXMINSTER Acct: [id number] Dis Date: Status: ADM IN PHONE #: [phone] Exam Date: 10/23/2022 1724 FAX #: [phone] Reason: ELEVATED D DIMER EXAMS: CPT CODE: [id number] [place] [address] (Continued) flexure compatible with colitis incompletely evaluated. 3. Small right pleural effusion with right lower lobe atelectasis. 4. Left upper lobe bronchiectasis. 5. Minimal anterior pericardial effusion. 6. Type 4 hiatal hernia measures 7.6 cm X 6.5 cm. 7. Gastric fundal wall thickening, correlation with recent endoscopy is recommended to help exclude an infiltrating mucosal process. at 2013 Reported and signed by: Hayden Rg M.D. CC: Sofia Cheng WEAVER AXMINSTER; Salinas Dukes MD Technologist:Latoya Pérez, RT(R)(CT); . 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 [facility] GLUCOSE [id number] 11:57:00 Test Item Value Reference Range Interpretation Comments GLUCOSE BEDSIDE (test 118 MG/DL 70-110 H Perfor med by certified code = GLUBED) 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 [facility] GLUCOSE [id number] 17:29:00 Test Item Value Reference Range Interpretation Comments GLUCOSE BEDSIDE (test 102 MG/DL 70-110 N Perfor med by certified code = GLUBED) 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 [facility] GLUCOSE [id number] 11:54:00 Test Item Value Reference Range Interpretation Comments GLUCOSE BEDSIDE (test 104 MG/DL 70-110 N Perfor med by certified code = GLUBED) 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 [facility] CBC W/MANUAL [id number] 10:35:00 Test Item Value Reference Range Interpretation [...] (test LARGE PLATELETS code = PLTMORPH) GLUCOSE [id number] 07:57:00 Test Item Value Reference Range Interpretation Comments GLUCOSE BEDSIDE (test 95 MG/DL 70-110 N [facility] med by certified code = GLUBED) 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 [facility] C REACTIVE [id number] 07:48:00 Test Item Value Reference Range Interpretation Comments C REACTIVE PROTEIN (test code = 36.0 mg/L <10.0 H CRP) BASIC METABOLIC [id number] 07:40:00 Test Item Value Reference Range Interpretation [...] code = 7.3 mg/dL 8.0-10.5 L CA) [id number] 07:40:00 Test Item Value Reference Range Interpretation Comments MAGNESIUM (test code = MAG) 1.50 mg/dL 1.80-2.40 L [id number] 07:04:00 Test Item Value Reference Range Interpretation Comments D-DIMER (test 5949 ng/mlFEU See_Comment HH Critical resu lt called to code = Jennifer RUIZ y G.LAB.JJ1 DDIMER) at 0701 3Nurse read back result and tech confirmed it's correct? YESTHROMBOSIS A ND/OR PULMONARY EMBOL ISM AND THE CLINICAL CUT- O FF VALUE FOR EXCLUSION (500 ng/mL FEU) OF THESE CONDIT IONSIS VALIDATED BY E SAMPLE STEAMER OF THE METHOD. A NEGATIVE D-DI JET [...] result as normal/abnormal . - DUP VEIN [id number] 00:00:00 [facility] HUANG[facility]: OSMAR CASTILLO : 1960 Sex: M Name: OSMAR CASTILLO [facility] Maren Huang : 1960 Age/S: 62 / M [address] [place] [address] BlvdUnit #: [id number] Loc: [place] [address] Phys: Skip Jaffe MD Acct: [id number] Dis Date: Status: ADM IN PHONE #: [phone] Exam Date: 10/21/2022820 FAX #: [phone] Reason: R/o DVT EXAMS: CPT CODE: [id number] DUP VEIN ASAEL 65926 PROCEDURE INFORMATION: Exam: US Duplex Lower Extremity [...] MD; Salinas Dukes MD Technologist: [facility] Date/Time: 10/21/2022 (911) t.TUNGR.AB61 Orig Print D/T: S: 10/21/2022 (911)Probe: PAGE 1 Signed Report GLUCOSE [id number] 20:40:00 Test Item Value Reference Range Interpretation Comments GLUCOSE BEDSIDE (test 148 MG/DL 70-110 H Perfor med by certified code = GLUBED) 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 [facility] GLUCOSE [id number] 16:46:00 Test Item Value Reference Range Interpretation Comments GLUCOSE BEDSIDE (test 118 MG/DL 70-110 H Perfor med by certified code = GLUBED) 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 [facility] GLUCOSE [id number] 16:46:00 Test Item Value Reference Range Interpretation Comments GLUCOSE BEDSIDE (test 122 MG/DL 70-110 H Perfor med by certified code = GLUBED) 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 [facility] TROP-I HIGH [id number] 15:04:00 Test Item Value Reference Range Interpretation [...] URLs mayvar y by method. BASIC METABOLIC [id number] 15:04:00 Test Item Value Reference Range Interpretation [...] 7.1 mg/dL 8.0-10.5 L CA) TROP-I HIGH [id number] 10:07:00 Test Item Value Reference Range Interpretation Comments TROP-I HIGH < 3 ng/L 0-54 N CAUTION: Units of the SENSITIVITY (test current te st methodology code = TROPIHS) (ng/L) diffe rfrom the prior test meth odology (ng/mL) by a fa ctor of 1000. 99t h Percentile Uppe r Reference Limit (URL): Fe males: 34 ng/LMales: 54 n g/L In order to distin [facility] acute elevations of h igh sensitivitytrop onin [...] URLs mayvar y by method. CBC W/AUTO [id number] 09:54:00 Test Item Value Reference Range Interpretation [...] (test NO code = MDIFF) TROP-I HIGH [id number] 09:24:00 Test Item Value Reference Range Interpretation Comments TROP-I HIGH < 3 ng/L 0-54 N CAUTION: Units of the SENSITIVITY (test current st methodology code = TROPIHS) (ng/L) diffe [...] These resu lts were obtained using Siem[employer] Medic[employer] IM TnI Hreagent. Results from di fferent methodologies s hould not becompared to o ne another as quantitative results and URLs mayvar y by method. 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 THROMBOPLASTIN TIME [id number] 02:05:00 Test Item Value Reference Range Interpretation Comments THROMBOPLASTIN TIME 26.1 Seconds 25.0-39.5 N Therape utic Range: PARTIAL (test code = 50.4 - 88.3 Seconds PTT) Effective 07/21/2018 LACTIC [id number] 01:59:00 Test Item Value Reference Range Interpretation Comments LACTIC ACID (test code = LACT) 1.1 mmol/L 0.4-1.9 N CBC W/AUTO [id number] 01:51:00 Test Item Value Reference Range Interpretation [...] code = MDIFF) - XR CHEST 1 [id number] 00:00:00 [facility] : 1960 Sex: M FAX: Sofia Cheng NP [phone] [place]: St: ADM FAX: Salinas Callahan I [phone] --- Name: MARYANNE CASTILLO [facility] : 1960 Age/S: 62/M [address] [place] [address] Blvd Unit #: [id number] Loc: G.66[address] [place] [address] Phys: oSfia Cheng NP Acct: [id number] Dis Date: Status: ADM IN PHONE #: [phone] Exam Date: 10/20/2022106 FAX #: [phone] Reason: Sepsis EXAMS: CPT CODE: [id number] XR CHEST 1 V 75514 PROCEDURE INFORMATION: Exam: XR Chest Exam date [...] Sofia Cheng NP; Salinas Dukes MD Technologist: ANAIS Silver) Trnscrd Date/Time/By: 10/20/2022 (021) : By: [email or web address] Orig Print D/T: S: 10/20/2022 (0215) PAGE 1 Signed ReportGLUCOSE [id number] 21:00:00 Test Item Value Reference Range Interpretation Comments GLUCOSE BEDSIDE (test 135 MG/DL 70-110 H Perfor med by certified code = GLUBED) 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 The test result should be correlated into the clinical context forinte rpretation. UR PROTEIN [id number] 20:03:00 Test Item Value Reference Range Interpretation Comments UR PROTEIN RANDOM (test code = 79 mg/dL PROTU) UR CREATININE [id number] 20:03:00 Test Item Value Reference Range Interpretation Comments UR CREATININE 111.9 mg/dL The Reference Range and RANDOM (test code Method Per formance = CREATU) specificationsh ave not been establishe d for this fluid. The test resultshould be correlated into the clinical contex t forinterpretati on. 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 [facility] GLUCOSE [id number] 12:48:00 Test Item Value Reference Range Interpretation Comments GLUCOSE BEDSIDE (test 109 MG/DL 70-110 N Perfor med by certified code = GLUBED) 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 [facility] GLUCOSE [id number] 07:53:00 Test Item Value Reference Range Interpretation Comments GLUCOSE BEDSIDE (test 96 MG/DL 70-110 N [facility] med by certified code = GLUBED) 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 [facility] BASIC METABOLIC [id number] 07:51:00 Test Item Value Reference Range Interpretation [...] recommended for jose miguel for GFRby the [facility] for Adults.The GFR will not calculate if th e sex is unknown or if thepatient's ag e is <18 years. 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 [facility] GLUCOSE [id number] 18:07:00 Test Item Value Reference Range Interpretation Comments GLUCOSE BEDSIDE (test 98 MG/DL 70-110 N Perfor med by certified code = GLUBED) 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 [facility] GLUCOSE [id number] 12:23:00 Test Item Value Reference Range Interpretation Comments GLUCOSE BEDSIDE (test 135 MG/DL 70-110 H Perfor med by certified code = GLUBED) 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 [facility] GLUCOSE [id number] 03:31:00 Test Item Value Reference Range Interpretation Comments GLUCOSE BEDSIDE (test 129 MG/DL 70-110 H Perfor med by certified code = GLUBED) 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 [facility] GLUCOSE [id number] 12:50:00 Test Item Value Reference Range Interpretation Comments GLUCOSE BEDSIDE (test 177 MG/DL 70-110 H Perfor med by certified code = GLUBED) 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 [facility] CBC W/AUTO [id number] 10:14:00 Test Item Value Reference Range Interpretation [...] 0.0-0.1 N code = NRBC#) VITAMIN D [id number] 08:19:00 Test Item Value Reference Range Interpretation Comments VITAMIN D 25-HYDROXY (test code = 25.5 ng/mL 30-100 L VITD25) Indication for Test: PTH DisorderCOMPREHENSIVE METABOLIC [id number] 08:14:00 Test Item Value Reference Range Interpretation [...] 20-125 N TOTAL (test code = ALKP) [id number] 08:14:00 Test Item Value Reference Range Interpretation Comments PHOSPHOROUS (test code = PHOS) 2.6 MG/DL 2.5-4.9 N [id number] 08:14:00 Test Item Value Reference Range Interpretation Comments MAGNESIUM (test code = MAG) 1.50 mg/dL 1.80-2.40 L GLUCOSE [id number] 07:40:00 Test Item Value Reference Range Interpretation Comments GLUCOSE BEDSIDE (test 105 MG/DL 70-110 N Perfor med by certified code = GLUBED) 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 TSH REFLEX TO [id number] 14:32:00 Test Item Value Reference Range Interpretation Comments TSH REFLEX TO FT4 (test code = 1.59 IU/mL 0.42-5.47 N TSHREFLEX) [id number] 14:19:00 Test Item Value Reference Range Interpretation Comments HGBA1C% (test code = HGBA1C%) 5.5 %A1C 4.8-6.0 N [id number] 14:13:00 Test Item Value Reference Range Interpretation Comments MAGNESIUM (test code = MAG) 1.91 mg/dL 1.80-2.40 N COMPREHENSIVE METABOLIC [id number] 14:13:00 Test Item Value Reference Range Interpretation [...] N TOTAL (test code = ALKP) GLUCOSE [id number] 12:54:00 Test Item Value Reference Range Interpretation Comments GLUCOSE BEDSIDE (test 102 MG/DL 70-110 N Perfor med by certified code = GLUBED) 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
--- NOTE | 2023-02-08 13:22 | EDPHYS ---
Physician Documentation [facility] Name: Mathew Porter Age: 62 yrs Sex: Male : 1960 Arrival Date: 02/08/2023 Time: 12:57 Bed 12 Private MD: ED Physician Octavio Perez HPI: 02/08 13:07 This 62 yrs old Male presents to ER via Ambulatory with complaints of Problem With jh7 Urinary Catheter. 13:07 Onset: The symptoms/episode began/occurred yesterday. Patient concerned that his jh7 urinary catheter bag is leaking. Denies any other issues with his Jonhs, urinary symptoms, fever, or anything else.. Historical: - Allergies: 13:08 No Known Allergies; iw - PMHx: 13:08 Schizophrenia; iw - PSHx: 13:08 Urolift (December); iw - Immunization history:: Adult Immunizations. - Social history:: Smoking status: . ROS: 13:07 Constitutional: Negative for fever, chills, and weight loss, Eyes: Negative for injury, jh7 pain, redness, and discharge, Neck: Negative for injury, pain, and swelling, Cardiovascular: Negative for chest pain, palpitations, and edema, Respiratory: Negative for shortness of breath, cough, wheezing, and pleuritic chest pain, Back: Negative for injury and pain, : Negative for injury, bleeding, discharge, and swelling, Skin: Negative for injury, rash, and discoloration, Neuro: Negative for headache, weakness, numbness, tingling, and seizure, 13:07 All other systems are negative, Exam: 13:07 Constitutional: This is a well developed, well nourished patient who is awake, alert, jh7 and in no acute distress. Head/Face: Normocephalic, atraumatic. Neck: Trachea midline, no thyromegaly or masses palpated, and no cervical lymphadenopathy. Supple, full range of motion without nuchal rigidity, or vertebral point tenderness. No Meningismus. Cardiovascular: Regular rate and rhythm with a normal S1 and S2. No gallops, murmurs, or rubs. Normal PMI, no JVD. No pulse deficits. Respiratory: Lungs have equal breath sounds bilaterally, clear to auscultation and percussion. No rales, rhonchi or wheezes noted. No increased work of breathing, no retractions or nasal flaring. Abdomen/GI: Soft, non-tender, with normal bowel sounds. No distension or tympany. No guarding or rebound. No evidence of tenderness throughout. Male : Normal genitalia with no discharge or lesions. 13:07 : CVA tenderness, is absent, Bladder: is normal, non-distended, non-tender, Vital Signs: 13:07 BP 112 / 87; Pulse 100; Resp 16; Temp 98.4; Pulse Ox 99% ; iw MDM: 13:04 Patient medically screened. [facility] 13:30 Differential diagnosis: Malfunction of urinary catheter device. Data reviewed: vital [facility] signs, nurses notes. Counseling: I had a detailed discussion with the patient and/or guardian regarding the historical points, exam findings, and any diagnostic results supporting the discharge/admit diagnosis, the need for outpatient follow up, a urologist, to return to the emergency department if symptoms worsen or persist or if there are any questions or concerns that arise at home. 02/08 13:13 Order name: [facility]. Order: replace johns bag; Complete Time: 13:20 jh7 Administered Medications: No medications were administered Disposition: 17:07 Co-signature as Attending Physician, Octavio Perez MD I reviewed the patient's care rn provided by the Advanced Practice Provider and agree with the diagnosis and treatment plan. Disposition Summary: 02/08/23 13:21 Discharge Ordered Notes: Location: Home [facility] Problem: new [facility] Symptoms: are resolved jh7 Condition: Stable jh7 Diagnosis - Encounter for fitting and adjustment of urinary device [facility] Followup: [facility] - With: Private Physician - When: 2 - 3 days - Reason: Recheck today's complaints Discharge Instructions: - Discharge Summary Sheet 7 - Indwelling Urinary Catheter Care, Adult [facility] Forms: - Medication Reconciliation Form [facility] - Thank You Letter [facility] - Patient Portal Instructions [facility] - Leadership Thank You Letter [facility] Signatures: Lolis Davis RN RN iw Nieto, Roman, MD MD rn Hadash, Jennifer, FNP COMPUTER SCIENCE PROFESSOR [facility]
--- NOTE | 2023-02-08 13:22 | ER ---
Nurse's Notes [facility] Name: Mathew Porter Age: 62 yrs Sex: Male : 1960 Arrival Date: 02/08/2023 Time: 12:57 Bed 12 Private MD: Diagnosis: Encounter for fitting and adjustment of urinary device Presentation: 02/08 13:07 Chief complaint: Patient states: thinks his catheter is leaking around the tubing or iw bag. Coronavirus screen: At this time, the client does not indicate any symptoms associated with coronavirus-19. Ebola Screen: Patient negative for fever greater than or equal to 101.5 degrees Fahrenheit, and additional compatible Ebola Virus Disease symptoms Patient denies exposure to infectious person. Patient denies travel to an Ebola-affected area in the 21 days before illness onset. No symptoms or risks identified at this time. Initial Sepsis Screen: Does the patient meet any 2 criteria? No. Patient's initial sepsis screen is negative. Does the patient have a suspected source of infection? No. Patient's initial sepsis screen is negative. Risk Assessment: Do you want to hurt yourself or someone else? Patient reports no desire to harm self or others. Onset of symptoms was February 08, 2023. 13:07 Method Of Arrival: Ambulatory iw 13:07 Acuity: JAMILA 4 iw Triage Assessment: 13:30 General: Appears in no apparent distress. Behavior is calm, cooperative. iw Historical: - Allergies: 13:08 No Known Allergies; iw - PMHx: 13:08 Schizophrenia; iw - PSHx: 13:08 Urolift (December); iw - Immunization history:: Adult Immunizations. - Social history:: Smoking status: . Screenin:48 [facility] ED Fall Risk Assessment (Adult) Score/Fall Risk Level 0 - 2 = Low Risk. Abuse iw screen: Denies threats or abuse. Denies injuries from another. Nutritional screening: No deficits noted. Tuberculosis screening: No symptoms or risk factors identified. Assessment: 13:30 General: Appears in no apparent distress. Behavior is calm, cooperative. Pain: Denies iw pain. Neuro: Level of Consciousness is awake, alert, obeys commands, Oriented to person, place, time, situation, Moves all extremities. Full function. Cardiovascular: Patient's skin is warm and dry. Respiratory: Respiratory effort is even, unlabored, Respiratory pattern is regular. GI: No signs and/or symptoms were reported involving the gastrointestinal system. Derm: Skin is intact, is healthy with good turgor. Musculoskeletal: Range of motion: intact in all extremities. Vital Signs: 13:07 BP 112 / 87; Pulse 100; Resp 16; Temp 98.4; Pulse Ox 99% ; iw ED Course: 13:02 Patient arrived in ED. ts1 13:04 Madeline Amaya FNP is [facility] 13:04 Octavio Perez MD is Attending Physician. [facility] 13:08 Triage completed. iw 13:09 Arm band placed on. iw 13:20 Lolis Davis, DEENA is Primary Nurse. iw 13:30 Patient has correct armband on for positive identification. iw 13:30 Provided Education on: . iw 13:48 No provider procedures requiring assistance completed. Patient did not have IV access iw during this emergency room visit. Administered Medications: No medications were administered Medication: 13:30 VIS not applicable for this client. iw Outcome: 13:21 Discharge ordered by . [facility] 13:48 Discharged to home ambulatory, iw 13:48 Condition: good 13:48 Discharge instructions given to 13:49 Patient left the ED. iw Signatures: Lolis Davis RN RN Madeline Amaya FNP WILDLIFE CONTROL AGENT [facility] Sharri Connors PAS PAS ts1 Corrections: (The following items were deleted from the chart) 13:09 13:07 Pulse 100bpm; Resp 16bpm; Pulse Ox 99%; Temp 98.4F; iw iw
[2023-02-08 14:15] VITALS: BP 112/87; TEMP 98.4; O2SAT 99
== END 2023-02-08 13:49 | disposition home or self-care (01) ==
LOC: ER 12:57
DX: Z46.6 Encounter for fitting and adjustment of urinary device (principal)
CPT/HCPCS: 99282

== ENCOUNTER 2023-03-03 12:36 | Emergency (ER) | payer OTHER ==
--- OUTSIDE RECORDS SUMMARY | 2023-03-03 12:42 | XMS REPORT | Continuity of Care Document ---
:1960 Author Organization [facility] t Address [address] [facility]. [address] [place] [address] Care Team Providers Name Role Phone Salinas [...] Known DA Active U [facility] Allergie 7-12 [facility] s 00:00: d 00 [facility] Medications This patient has no known medications. Procedures This patient has no known procedures. Encounters Start End Encounter Admission Attending Care Care Encounter Source Date/Time Date/Time Type Type Clinicians Facility Department ID 2023-01-21 2023-01-22 Inpatient EM [facility] MEDI.01 [id number] [facility] 06:38:00 20:00:00 Salinas Dukes 65 [facility] 2023-01-06 2023-01-11 [facility] [id number] 15:12:00 21:08:00 Salinas Dukes 41 [facility] 2022-10-16 2022-10-26 Inpatient EM [facility] MEDI.01 [id number] [facility] 05:03:00 19:41:00 Salinas Dukes 28 [facility] Results Test Description Test Time Test Comments Results Result [facility] e Comments - CT ABD PELVIS 2023-01-05 W/CONT 8 13:00[facility]00 [facility] 1960 Sex: M Name: MATHEW CASTILLO [facility] : 1960 Age/S: 62 / M [address] [place] [address] Blvd Unit #: [id number] Loc: [place] [address] Phys: Sofia Cheng GAME ENGINEER Acct: [id number] Dis Date: Status: ADM IN PHONE #: [phone] Exam Date: 01/22/2023 1231 FAX #: [phone] Reason: ABD PAIN EXAMS: CPT CODE: [id number] CT ABD PELVIS W/CONT 74696 EXAM: CT abdomen and pelvis with contrast [...] without PAGE 1 Signed Report (CONTINUED) Name: MATHEW CASTILLO [facility] : 1960 Age/S: 62 / M [address] [place] [address] Blvd Unit #: [id number] Loc: [place] [address] Phys: Sofia Cheng GAME ENGINEER Acct: [id number] Dis Date: Status: ADM IN PHONE #: [phone] Exam Date: 01/22/2023 1231 FAX #: [phone] Reason: ABD PAIN EXAMS: CPT CODE: [id number] CT ABD PELVIS W/CONT 03936 (Continued) abdominal aortic aneurysm. Pelvic organs/bladder: Moderate [...] (1300) t.SDR.BC0 Orig Print D/T: S: 01/22/2023 (6870) PAGE 2 Signed Report BASIC METABOLIC PANEL [...] code = CA) 7.4 mg/dL 8.0-10.5 L [id number] 07:46:00 Test Item Value Reference Range Interpretation Comments PHOSPHOROUS (test code = PHOS) 2.4 MG/DL 2.5-4.9 L [id number] 07:46:00 Test Item Value Reference Range Interpretation Comments MAGNESIUM (test code = 1.69 mg/dL 1.6-2.6 N NOTE: NEW NORMAL MAG) RANGE CBC W/AUTO [id number] 07:05:00 Test Item Value Reference Range Interpretation [...] x10 3/uL 0.0-0.1 N NRBC#) BASIC METABOLIC [id number] 06:08:00 Test Item Value Reference Range Interpretation [...] 8.2 mg/dL 8.0-10.5 N CA) CBC W/AUTO [id number] 05:57:00 Test Item Value Reference Range Interpretation [...] (test code NO = MDIFF) CBC W/AUTO [id number] 08:15:00 Test Item Value Reference Range Interpretation [...] x10 3/uL 0.0-0.1 N NRBC#) BASIC METABOLIC [id number] 07:28:00 Test Item Value Reference Range Interpretation [...] 8.6 mg/dL 8.0-10.5 N CA) BASIC METABOLIC [id number] 07:46:00 Test Item Value Reference Range Interpretation [...] recommended for jose miguel for GFRby the [facility] Found[facility] on for Adults.The GFR will not calculate if th e sex is unknown or if thepatient's ag e is <18 years. CREATININE (test 0.8 mg/dL 0.6-1.3 N code = CREAT) CALCIUM (test code = 8.7 mg/dL 8.0-10.5 N CA) CBC W/AUTO [id number] 07:34:00 Test Item Value Reference Range Interpretation [...] x10 3/uL 0.0-0.1 N NRBC#) CBC W/AUTO [id number] 08:43:00 Test Item Value Reference Range Interpretation [...] (test code NO = MDIFF) BASIC METABOLIC [id number] 07:14:00 Test Item Value Reference Range Interpretation [...] recommended for jose miguel for [facility] the [facility] Found[facility] on for Adults.The GFR will not calculate if th e sex is unknown or if thepatient's ag e is <18 years. CREATININE (test 0.8 mg/dL 0.6-1.3 N code = CREAT) CALCIUM (test code = 7.8 mg/dL 8.0-10.5 L CA) CBC W/AUTO [id number] 08:58:00 Test Item Value Reference Range Interpretation [...] (test code NO = MDIFF) BASIC METABOLIC [id number] 08:27:00 Test Item Value Reference Range Interpretation [...] recommended for jose miguel for GFRby the [facility] Foundati on for Adults.The GFR will not calculate if th e sex is unknown or if thepatient's ag e is <18 years. CREATININE (test 0.9 mg/dL 0.6-1.3 N code = CREAT) CALCIUM (test code = 8.2 mg/dL 8.0-10.5 N CA) [id number] 08:34:00 Test Item Value Reference Range Interpretation Comments HGBA1C% (test code = HGBA1C%) 5.1 %A1C 4.8-6.0 N CBC W/AUTO [id number] 08:05:00 Test Item Value Reference Range Interpretation [...] (test NO code = MDIFF) BASIC METABOLIC [id number] 07:46:00 Test Item Value Reference Range Interpretation [...] recommended for jose miguel for GFRby the [facility] Foundati on for Adults.The GFR [...] (test code = LDL) NEAR OPTIM AL/ABOVE [id number] 89 HIGH>TL=624 BRIELLE Y HIGH*Guidelines provided by the National Choles terol EducationProgra Adult Treatment Panel III [id number] 07:46:00 Test Item Value Reference Range Interpretation Comments PHOSPHOROUS (test code = PHOS) 3.4 MG/DL 2.5-4.9 N [id number] 07:46:00 Test Item Value Reference Range Interpretation Comments MAGNESIUM (test code = 1.69 mg/dL 1.6-2.6 N NOTE: NEW NORMAL MAG) RANGE TSH REFLEX TO [id number] 07:46:00 Test Item Value Reference Range Interpretation Comments TSH REFLEX TO FT4 (test code = 2.37 IU/mL 0.42-5.47 N TSHREFLEX) LACTIC [id number] 05:48:00 Test Item Value Reference Range Interpretation Comments LACTIC ACID (test code = LACT) 1.1 mmol/L 0.4-1.9 N LACTIC ACID [id number] 02:38:00 Test Item Value Reference Range Interpretation Comments LACTIC ACID REPEAT (test code = 0.9 mmol/l 0.4-1.9 N LACTR) CALLED SEVERINO @01:18 TO REMIND WE NEEDED REPEATLACTIC [id number] 22:36:00 Test Item Value Reference Range Interpretation Comments LACTIC ACID (test code = LACT) 2.9 mmol/L 0.4-1.9 H UA RFLX MICR CULT IF [id number] 22:35:00 Test Item Value Reference Range Interpretation [...] Less than 14 days- CT ABD PELVIS [id number] 22:24:00 [facility] : 1960 Sex: M Name: MATHEW CASTILLO [facility] ER : 1960 Age/S: 62 / M [address] [place] [address] Unit #: [id number] Loc: [place] [address] Phys: Vee HortonP Acct: [id number] Dis Date: Status: REG ER PHONE #: [phone] Exam Date: 01/04/2023 0940 FAX #: [phone] Reason: GROSS HEMATURIA EXAMS: CPT CODE: [id number] CT ABD PELVIS W/CONT 86457 H 20 TIME OF STUDY: 01/04/2023 7:55 [...] hernia. PAGE 1 Signed Report (CONTINUED) Name: MATHEW CASTILLO [facility] [place] [facility] : 1960 Age/S: 62 / M [address] [place] [address] Unit #: [id number] Loc: [place] [address] Phys: Vee Horton APRNNP Acct: [id number] Dis Date: Status: REG ER PHONE #: [phone] Exam Date: 01/04/2023939 FAX #: [phone] Reason: GROSS HEMATURIA EXAMS: CPT CODE: [id number] CT ABD PELVIS W/CONT 83360 (Continued) at 2224 Reported and signed by: Zia Magaña M.D. CC: Lakhwinder Guillermo MD; Vee Horton; Javier Sullivan MD Technologist:Latoya cerna, RT(R); Lesvia Humphries CTDI: DLP: Trnscb Date/Time: 01/04/2023 (2223) t.TUNGR.SI1 Orig Print D/T: S: 01/04/2023 (2226) PAGE 2 Signed ReportCOMPREHENSIVE METABOLIC [id number] 21:07:00 Test Item Value Reference Range Interpretation [...] TOTAL (test code = ALKP) CBC W/AUTO [id number] 20:38:00 Test Item Value Reference Range Interpretation [...] (test NO code = MDIFF) BASIC METABOLIC [id number] 08:30:00 Test Item Value Reference Range Interpretation [...] 4.9 mg/ dLEdited by: [email or web address] kaitlin noyola 10/31/22:382020 0829: CA previo usly reported as: 4. 9 *L mg/dL Critical result [place] N[place] [address]/16/22 N eligio read back result and tech confirmed it's correct? Y GLUCOSE [id number] 17:27:00 Test Item Value Reference Range Interpretation Comments GLUCOSE BEDSIDE (test 109 MG/DL 70-110 N Perfor med by certified code = GLUBED) 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 [facility] GLUCOSE [id number] 12:34:00 Test Item Value Reference Range Interpretation Comments GLUCOSE BEDSIDE (test 95 MG/DL 70-110 N Perfor med by certified code = GLUBED) 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 [facility] GLUCOSE [id number] 08:49:00 Test Item Value Reference Range Interpretation Comments GLUCOSE BEDSIDE (test 117 MG/DL 70-110 H Perfor med by certified code = GLUBED) 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 [facility] BASIC METABOLIC [id number] 07:57:00 Test Item Value Reference Range Interpretation [...] = 8.1 mg/dL 8.0-10.5 N CA) GLUCOSE [id number] 17:07:00 Test Item Value Reference Range Interpretation Comments GLUCOSE BEDSIDE (test 127 MG/DL 70-110 H Perfor med by certified code = GLUBED) 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 [facility] GLUCOSE [id number] 12:26:00 Test Item Value Reference Range Interpretation Comments GLUCOSE BEDSIDE (test 123 MG/DL 70-110 H Perfor med by certified code = GLUBED) 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 [facility] GLUCOSE [id number] 07:59:00 Test Item Value Reference Range Interpretation Comments GLUCOSE BEDSIDE (test 92 MG/DL 70-110 N Perfor med by certified code = GLUBED) 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 [facility] BASIC METABOLIC [id number] 07:38:00 Test Item Value Reference Range Interpretation [...] 7.8 mg/dL 8.0-10.5 L CA) CBC W/AUTO [id number] 07:27:00 Test Item Value Reference Range Interpretation [...] REQUIRED (test NO code = MDIFF) GLUCOSE [id number] 21:25:00 Test Item Value Reference Range Interpretation Comments GLUCOSE BEDSIDE (test 154 MG/DL 70-110 H Perfor med by certified code = GLUBED) 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 [facility] GLUCOSE [id number] 17:43:00 Test Item Value Reference Range Interpretation Comments GLUCOSE BEDSIDE (test 73 MG/DL 70-110 N Perfor med by certified code = GLUBED) 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 [facility] GLUCOSE [id number] 10:08:00 Test Item Value Reference Range Interpretation Comments GLUCOSE BEDSIDE (test 87 MG/DL 70-110 N Perfor med by certified code = GLUBED) 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 [facility] GLUCOSE [id number] 20:12:00 Test Item Value Reference Range Interpretation Comments GLUCOSE BEDSIDE (test 139 MG/DL 70-110 H Perfor med by certified code = GLUBED) 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 [facility] GLUCOSE [id number] 17:32:00 Test Item Value Reference Range Interpretation Comments GLUCOSE BEDSIDE (test 79 MG/DL 70-110 N Perfor med by certified code = GLUBED) 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 [facility] GLUCOSE [id number] 12:14:00 Test Item Value Reference Range Interpretation Comments GLUCOSE BEDSIDE (test 98 MG/DL 70-110 N Perfor med by certified code = GLUBED) 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 [facility] GLUCOSE [id number] 08:36:00 Test Item Value Reference Range Interpretation Comments GLUCOSE BEDSIDE (test 92 MG/DL 70-110 N Perfor med by certified code = GLUBED) 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 [facility] BASIC METABOLIC [id number] 07:50:00 Test Item Value Reference Range Interpretation [...] code = 7.6 mg/dL 8.0-10.5 L CA) [id number] 07:50:00 Test Item Value Reference Range Interpretation Comments MAGNESIUM (test code = MAG) 1.53 mg/dL 1.80-2.40 L - CTA CHEST FOR [id number] 00:00:00 [facility] : 1960 Sex: M Name: MATHEW CASTILLO [facility] : 1960 Age/S: 62 / M [address] [place] [address] BlvdUnit #: [id number] Loc: [place] [address] Phys: Sofia Cheng GAME ENGINEER Acct: [id number] Dis Date: Status: ADM IN PHONE #: [phone] Exam Date: 10/23/2022 1724 FAX #: [phone] Reason: ELEVATED D DIMER EXAMS: CPT CODE: [id number] [place] [address] PROCEDURE INFORMATION: Exam: CTA Chest With C [...] plenic PAGE 1 Signed Report (CONTINUED) Name: MATHEW CASTILLO [facility] : 1960Age/S: 62 / M [address] [place] [address] Unit #: [id number] Loc: [place] [address] Phys: Sofia Cheng GAME ENGINEER Acct: [id number] Dis Date: Status: ADM IN PHONE #: [phone] Exam Date: 10/23/2022 1724 FAX #: [phone] Reason: ELEVATED D DIMER EXAMS: CPT CODE: [id number] [place] [address] (Continued) flexure compatible with colitis incompletely evaluated. [...] by: Hayden Rg M.D. CC: Sofia Cheng GAME ENGINEER; Salinas Dukes MD Technologist:Latoya Pérez, RT(R)(CT); . CTDI: DLP: Trnscb Date/Time: 10/23/2022 (2012) t.SDR.JT18 Orig Print D/T: S: 10/23/2022 (2012) PAGE 2 Signed ReportGLUCOSE [id number] 20:23:00 Test Item Value Reference Range Interpretation Comments GLUCOSE BEDSIDE (test 123 MG/DL 70-110 H Perfor med by certified code = GLUBED) 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 [facility] GLUCOSE [id number] 17:34:00 Test Item Value Reference Range Interpretation Comments GLUCOSE BEDSIDE (test 132 MG/DL 70-110 H Perfor med by certified code = GLUBED) 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 [facility] GLUCOSE [id number] 11:57:00 Test Item Value Reference Range Interpretation Comments GLUCOSE BEDSIDE (test 118 MG/DL 70-110 H Perfor med by certified code = GLUBED) 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 [facility] GLUCOSE [id number] 08:22:00 Test Item Value Reference Range Interpretation Comments GLUCOSE BEDSIDE (test 100 MG/DL 70-110 N Perfor med by certified code = GLUBED) 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 [facility] BASIC METABOLIC [id number] 08:05:00 Test Item Value Reference Range Interpretation [...] recommended for jose miguel for [facility]by the [facility] Kid[facility] Found[facility] on for Adults.The GFR will not calculate if th e sex is unknown or if thepatient's ag e is <18 years. CREATININE (test 1.1 mg/dL 0.6-1.3 N code = CREAT) CALCIUM (test code = 7.8 mg/dL 8.0-10.5 L CA) [id number] 08:05:00 Test Item Value Reference Range Interpretation Comments MAGNESIUM (test code = MAG) 1.72 mg/dL 1.80-2.40 L GLUCOSE [id number] 21:10:00 Test Item Value Reference Range Interpretation Comments GLUCOSE BEDSIDE (test 148 MG/DL 70-110 H Perfor med by certified code = GLUBED) 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 [facility] GLUCOSE [id number] 17:29:00 Test Item Value Reference Range Interpretation Comments GLUCOSE BEDSIDE (test 102 MG/DL 70-110 N Perfor med by certified code = GLUBED) 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 [facility] GLUCOSE [id number] 11:54:00 Test Item Value Reference Range Interpretation Comments GLUCOSE BEDSIDE (test 104 MG/DL 70-110 N Perfor med by certified code = GLUBED) 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 [facility] CBC W/MANUAL [id number] 10:35:00 Test Item Value Reference Range Interpretation [...] (test LARGE PLATELETS code = PLTMORPH) GLUCOSE [id number] 07:57:00 Test Item Value Reference Range Interpretation Comments GLUCOSE BEDSIDE (test 95 MG/DL 70-110 N [facility] med by certified code = GLUBED) 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 [facility] C REACTIVE [id number] 07:48:00 Test Item Value Reference Range Interpretation Comments C REACTIVE PROTEIN (test code = 36.0 mg/L <10.0 H CRP) BASIC METABOLIC [id number] 07:40:00 Test Item Value Reference Range Interpretation [...] code = 7.3 mg/dL 8.0-10.5 L CA) [id number] 07:40:00 Test Item Value Reference Range Interpretation Comments MAGNESIUM (test code = MAG) 1.50 mg/dL 1.80-2.40 L [id number] 07:04:00 Test Item Value Reference Range Interpretation Comments D-DIMER (test 5949 ng/mlFEU See_Comment HH Critical resu lt called to code = Jennifer RUIZ y G.LAB.JJ1 DDIMER) at 700 3Nurse read back result and tech confirmed it's correct? YESTHROMBOSIS A ND/OR PULMONARY EMBOL ISM AND THE CLINICAL CUT- O FF VALUE FOR EXCLUSION (500 ng/mL FEU) OF THESE CONDIT IONSIS VALIDATED BY E PACKAGE DRIER OF THE METHOD. A NEGATIVE D-DI JET [...] result as normal/abnormal . - DUP VEIN [id number] 00:00:00 [facility] BARRERA HUANGName: MATHEW CASTILLO : 1960 Sex: M Name: MATHEW CASTILLO [facility] Barrrea Huang : 1960 Age/S: 62 / M [address] [place] [address] BlvdUnit #: [id number] Loc: [place] [address] Phys: Skip Jaffe MD Acct: [id number] Dis Date: Status: ADM IN PHONE #: [phone] Exam Date: 10/21/2022820 FAX #: [phone] Reason: R/o DVT EXAMS: CPT CODE: [id number] DUP VEIN ASAEL 02722 PROCEDURE INFORMATION: Exam: US Duplex Lower Extremity [...] MD; Salinas Dukes MD Technologist: Yesica Baker [facility] Date/Time: 10/21/2022 (911) tHILARIOR.AB61 Orig Print D/T: S: 10/21/2022 (911) Probe: PAGE 1 Signed Report GLUCOSE [id number] 20:40:00 Test Item Value Reference Range Interpretation Comments GLUCOSE BEDSIDE (test 148 MG/DL 70-110 H Perfor med by certified code = GLUBED) 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 [facility] GLUCOSE [id number] 16:46:00 Test Item Value Reference Range Interpretation Comments GLUCOSE BEDSIDE (test 118 MG/DL 70-110 H Perfor med by certified code = GLUBED) 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 [facility] GLUCOSE [id number] 16:46:00 Test Item Value Reference Range Interpretation Comments GLUCOSE BEDSIDE (test 122 MG/DL 70-110 H Perfor med by certified code = GLUBED) 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 [facility] TROP-I HIGH [id number] 15:04:00 Test Item Value Reference Range Interpretation [...] These resu lts were obtained using [employer] IM TnI Hreagent. Results from di fferent methodologies s hould not becompared to o ne another as quantitative results and URLs mayvar y by method. BASIC METABOLIC [id number] 15:04:00 Test Item Value Reference Range Interpretation [...] 7.1 mg/dL 8.0-10.5 L CA) TROP-I HIGH [id number] 10:07:00 Test Item Value Reference Range Interpretation [...] URLs mayvar y by method. CBC W/AUTO [id number] 09:54:00 Test Item Value Reference Range Interpretation [...] (test NO code = MDIFF) TROP-I HIGH [id number] 09:24:00 Test Item Value Reference Range Interpretation [...] These resu lts were obtained using [employer] IM TnI Hreagent. Results from di fferent methodologies s hould not becompared to o ne another as quantitative results and URLs mayvar y by method. GLUCOSE [id number] 08:49:00 Test Item Value Reference Range Interpretation Comments GLUCOSE BEDSIDE (test 102 MG/DL 70-110 N [facility] med by certified code = GLUBED) 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 [facility] COMPREHENSIVE METABOLIC [id number] 02:08:00 Test Item Value Reference Range Interpretation [...] 20-125 N TOTAL (test code = ALKP) [id number] 02:08:00 Test Item Value Reference Range Interpretation Comments LIPASE (test code = LIP) 57 U/L 13-57 N PROTHROMBIN [id number] 02:05:00 Test Item Value Reference Range Interpretation [...] (to prevent recurrent infar ct). THROMBOPLASTIN TIME [id number] 02:05:00 Test Item Value Reference Range Interpretation Comments THROMBOPLASTIN TIME 26.1 Seconds 25.0-39.5 N Therape utic Range: PARTIAL (test code = 50.4 - 88.3 Seconds PTT) Effective 07/21/2018 LACTIC [id number] 01:59:00 Test Item Value Reference Range Interpretation Comments LACTIC ACID (test code = LACT) 1.1 mmol/L 0.4-1.9 N CBC W/AUTO [id number] 01:51:00 Test Item Value Reference Range Interpretation [...] code = MDIFF) - XR CHEST 1 [id number] 00:00:00 [facility] : 1960 Sex: M FAX: Sofia Cheng NP [phone] [place]: St: ADM FAX: Salinas Callahan I [phone] --- Name: MARYANNE CASTILLO [facility] : 1960 Age/S: 62/M [address] [place] [address] Unit #: [id number] Loc: G.[address] [place] [address] Phys: Sofia Cheng NP Acct: [id number] Dis Date: Status: ADM IN PHONE #: [phone] Exam Date: 10/20/2022106 FAX #: [phone] Reason: Sepsis EXAMS: CPT CODE: [id number] XR CHEST 1 V 30400 PROCEDURE INFORMATION: Exam: XR Chest Exam date [...] S: 10/20/2022 (0215) PAGE 1 Signed ReportGLUCOSE [id number] 21:00:00 Test Item Value Reference Range Interpretation Comments GLUCOSE BEDSIDE (test 135 MG/DL 70-110 H Perfor med by certified code = GLUBED) 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 [facility] URINALYSIS [id number] 20:03:00 Test Item Value Reference Range Interpretation [...] MUCU) 1+ /LPF NONE SEEN UR SODIUM [id number] 20:03:00 Test Item Value Reference Range Interpretation Comments UR SODIUM RANDOM 102 MEQ/L The Referen ce Range and (test code = Method Performa nce ALPHONSE) specificationsh ave not been established for this fluid. The test result should be correlated into the clinical context forinte rpretation. UR PROTEIN [id number] 20:03:00 Test Item Value Reference Range Interpretation Comments UR PROTEIN RANDOM (test code = 79 mg/dL PROTU) UR CREATININE [id number] 20:03:00 Test Item Value Reference Range Interpretation Comments UR CREATININE 111.9 mg/dL The Reference Range and RANDOM (test code Method Per formance = CREATU) specificationsh ave not been establishe d for this fluid. The test resultshould be correlated into the clinical contex t forinterpretati on. UR OSMOLALITY [id number] 20:03:00 Test Item Value Reference Range Interpretation Comments UR OSMOLALITY RANDOM (test code = 575 MOS/KG 300-1000 OSMOU) UR OSMOLALITY [id number] 20:02:00 Test Item Value Reference Range Interpretation Comments UR OSMOLALITY RANDOM (test code = 575 MOS/KG 300-1000 N OSMOU) GLUCOSE [id number] 17:18:00 Test Item Value Reference Range Interpretation Comments GLUCOSE BEDSIDE (test 122 MG/DL 70-110 H Perfor med by certified code = GLUBED) 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 [facility] GLUCOSE [id number] 12:48:00 Test Item Value Reference Range Interpretation Comments GLUCOSE BEDSIDE (test 109 MG/DL 70-110 N Perfor med by certified code = GLUBED) 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 [facility] GLUCOSE [id number] 07:53:00 Test Item Value Reference Range Interpretation Comments GLUCOSE BEDSIDE (test 96 MG/DL 70-110 N [facility] med by certified code = GLUBED) 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 [facility] BASIC METABOLIC [id number] 07:51:00 Test Item Value Reference Range Interpretation [...] recommended for jose miguel for GFRby the [facility] Kidney Foundati on for Adults.The GFR will not calculate if th e sex is unknown or if thepatient's ag e is <18 years. CREATININE (test 0.8 mg/dL 0.6-1.3 N code = CREAT) CALCIUM (test code = 7.5 mg/dL 8.0-10.5 L CA) [id number] 07:51:00 Test Item Value Reference Range Interpretation Comments MAGNESIUM (test code = MAG) 1.65 mg/dL 1.80-2.40 L CBC W/AUTO [id number] 07:07:00 Test Item Value Reference Range Interpretation [...] REQUIRED (test code NO = MDIFF) GLUCOSE [id number] 20:44:00 Test Item Value Reference Range Interpretation Comments GLUCOSE BEDSIDE (test 116 MG/DL 70-110 H Perfor med by certified code = GLUBED) 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 [facility] GLUCOSE [id number] 18:07:00 Test Item Value Reference Range Interpretation Comments GLUCOSE BEDSIDE (test 98 MG/DL 70-110 N Perfor med by certified code = GLUBED) 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 [facility] GLUCOSE [id number] 12:23:00 Test Item Value Reference Range Interpretation Comments GLUCOSE BEDSIDE (test 135 MG/DL 70-110 H Perfor med by certified code = GLUBED) 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 [facility] GLUCOSE [id number] 11:22:00 Test Item Value Reference Range Interpretation Comments GLUCOSE BEDSIDE (test 104 MG/DL 70-110 N Perfor med by certified code = GLUBED) 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 [facility] BASIC METABOLIC [id number] 08:12:00 Test Item Value Reference Range Interpretation [...] code = 7.4 mg/dL 8.0-10.5 L CA) [id number] 08:12:00 Test Item Value Reference Range Interpretation Comments MAGNESIUM (test code = MAG) 1.48 mg/dL 1.80-2.40 L CBC W/AUTO [id number] 08:09:00 Test Item Value Reference Range Interpretation [...] REQUIRED (test code NO = MDIFF) GLUCOSE [id number] 05:56:00 Test Item Value Reference Range Interpretation Comments GLUCOSE BEDSIDE (test 104 MG/DL 70-110 N Perfor med by certified code = GLUBED) 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 [facility] GLUCOSE [id number] 03:31:00 Test Item Value Reference Range Interpretation Comments GLUCOSE BEDSIDE (test 129 MG/DL 70-110 H Perfor med by certified code = GLUBED) 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 [facility] GLUCOSE [id number] 12:50:00 Test Item Value Reference Range Interpretation Comments GLUCOSE BEDSIDE (test 177 MG/DL 70-110 H Perfor med by certified code = GLUBED) 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 [facility] CBC W/AUTO [id number] 10:14:00 Test Item Value Reference Range Interpretation [...] 0.0-0.1 N code = NRBC#) VITAMIN D [id number] 08:19:00 Test Item Value Reference Range Interpretation Comments VITAMIN D 25-HYDROXY (test code = 25.5 ng/mL 30-100 L VITD25) Indication for Test: PTH DisorderCOMPREHENSIVE METABOLIC [id number] 08:14:00 Test Item Value Reference Range Interpretation [...] 20-125 N TOTAL (test code = ALKP) [id number] 08:14:00 Test Item Value Reference Range Interpretation Comments PHOSPHOROUS (test code = PHOS) 2.6 MG/DL 2.5-4.9 N [id number] 08:14:00 Test Item Value Reference Range Interpretation Comments MAGNESIUM (test code = MAG) 1.50 mg/dL 1.80-2.40 L GLUCOSE [id number] 07:40:00 Test Item Value Reference Range Interpretation Comments GLUCOSE BEDSIDE (test 105 MG/DL 70-110 N Perfor med by certified code = GLUBED) 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 TSH REFLEX TO [id number] 14:32:00 Test Item Value Reference Range Interpretation Comments TSH REFLEX TO FT4 (test code = 1.59 IU/mL 0.42-5.47 N TSHREFLEX) HGBA1C%2022-10-16 14:19:00 Test Item Value Reference Range Interpretation Comments HGBA1C% (test code = HGBA1C%) 5.5 %A1C 4.8-6.0 N [id number] 14:13:00 Test Item Value Reference Range Interpretation Comments MAGNESIUM (test code = MAG) 1.91 mg/dL 1.80-2.40 N COMPREHENSIVE METABOLIC [id number] 14:13:00 Test Item Value Reference Range Interpretation [...] N TOTAL (test code = ALKP) GLUCOSE [id number] 12:54:00 Test Item Value Reference Range Interpretation Comments GLUCOSE BEDSIDE (test 102 MG/DL 70-110 N Perfor med by certified code = GLUBED) 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 [facility] GLUCOSE [id number] 10:14:00 Test Item Value Reference Range Interpretation Comments GLUCOSE BEDSIDE (test 110 MG/DL 70-110 N [facility] by certified code = GLUBED) 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 [facility] CBC W/AUTO [id number] 05:58:00 Test Item Value Reference Range Interpretation [...] N NRBC#) Notes Date/Time Note Provider Source 2023-02-14 02:12:00 [id number]:12:00 [facility] ([facility])Discharge SummaryREPORT#:[id number] REPORT STATUS: SignedREPORT INITIALIZATION DATE:02/14/23 TIME: 211 PATIENT: MATHEW CASTILLO UNIT #: [id number]#: [id number] [address] [birth year] AGE: 62 SEX: M ATTEND: Salinas Alba I MDADM AUTHOR: Salinas Alba I MDREPT SERVICE DT/TIME: 02/14/23211* ALL edits or amendments must be made on the electronic/computer document * PCP PCPPCP:PCP: Lakhwinder Guillermo MD Discharge to: home General InformationDate of admission:Observation Start Date: Date of admission: 01/21/23 Discharg e date: 01/22/23Admission diagnosis:1. Acute kidne y injury2. Obstructive uropathy3. Leukocytosis4. BPH status post UroLift5. HX OF BPH, Hypertension, SchizophreniaDischarge diagnosis:N13.30 UNSPECIFIED HYDRONEPHROSIS J98.11 ATELECTASIS N17.9 ACUTE KIDNEY FAILURE, NFHRWXVCRHOM83.8 OTHER RETENTION OF URINE D72.82 9 ELEVATED WHITE BLOOD CELL COUNT, UNSPECIFIED E83.39 OTHER DISORDERS OF PHOSPHORUS METABOLISM F20.9 SCHIZOPHRENIA, UNSPECIFIED E83.42 HYPOMAGNESEMIA I10 ESSENTIAL (PRIMARY) HYPERTENSION 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 N40.1 BENIGN PROSTATIC HYPERPLASIA WITH LOWER URINARY TRACT SYMP Hospital course:62-year-old male with last medical history of, BPH-s/p UroLift 01/03/2023, schizophrenia was transferred from [facility] ER with acute kidney injury and urinary retention. Patient reported he presented to the ER with complaint of abdominal pain, he began having urinary retention 1 week after the black catheter was removed and progressively worsened. Patient had a coude catheter placed reported lab s revealed creatinine of 5.6 and BUN of 105. Patient was given cefepime 1 g and Merrem 500 mg and a bolus of normal saline prior to arrival.Patient denied fever, chills, nausea, vomiting, chest pain, shortness of breath,or other associated symptoms. He reported his abdominal pain was better after the Black catheter was inserted.Patient was admitted for further evaluation and treatment. Urology consul t was placed.Urology had seen the patient. For follow-up as outpatient on 01/30 and for nurse visit catheter removal and CIC teaching.The patient was hemodynamically stable and was discharged to home, follow-up with PCP. Discharg e medications as per reconciliation list. Med Rec Med RecDischarge meds:Stop taking the following medications:CIPROFLOXACIN (CIPROFLOXACIN) 500 MG TAB 500 MILLIGRAM ORAL TWICE DAILY. Qty = 14 Continue taking these medications:BENZTROPINE (BENZTROPINE) 0.5 MG TAB 1 MILLIGRAM ORAL DAILY. HALOPERIDOL (HALDOL) 10 MG TAB 10 MILLIGRAM ORAL TWICE DAILY. TAMSULOSIN ER (FLOMAX) 0.4 MG CAP.SR.24H TWICE DAILY. ObjectiveVS/I OLast Documented: Result Date Time Pulse Ox 98 01/22 1610 B/P 114/64 01/22 1610 B/P Mean 80.9 01/22 1610 Temp 36.9 01/22 1610 Pulse 78 01/22 1610 Resp 16 01/22 1610 O2 Delivery Room air 01/21 0516 PATIENT WEIGHT: Weight (lb): Weight (oz): Weight (kg): 70.909 Physical Examination: Constitutional: no acute distressEyes: normal external eye, conjunctiva and sclera normalEars, nose, mouth, throat: normocephalic, moist mucous membranesRespiratory: respirations unlabored on room airGastrointestinal: soft, non-distended, non-tenderGenitourinary: circumcised, normal phallus, bilateral descended testes, Black catheter in place patent and draining clear urineMusculoskeletal: no clubbing, cyanosis or edemaSkin: no rashesNeurologic: no focal deficitsPsychiatric: appropriate mood and affectHematologic: no bruising Treatments ProceduresLab:Laboratory Tests: 01/21 0518 Chemistry Sodium (134 - 147 mEq/L) 134 Potassiu m (3.4 - 5.0 mEq/L) 4.4 Chloride (100 - 108 mEq/L) 102 Carbon Dioxide (21 - 33 mEq/l) 22 Anion Gap (0 - 20) 14 BUN (7 - 25 mg/dL) 54 H Creatinine (0.6 - 1.3 mg/dL) 2.6 H Glomerular Filtr Rate (80 - 90) 26.9 L Glucose (77 - 141 mg/dL) 111 Calcium (8.0 - 10.5 mg/dL) 8.2 Hematology WBC (4.5 - 11.0 x10 3/uL) 11.2 H RBC (4.00 - 5.60 x1 0 6/uL) 3.66 L Hgb (12.5 - 16.9 g/dL) 10.3 L Hct (37.5 - 50.7 %) 31.6 L MCV (81.0 - 99.0 fL) 86.3 MCH (27.0 - 33.0 pg) 28.1 MCHC (33.0 - 37.0 g/dL ) 32.6 L RDW (11.5 - 14.5 %) 13.9 Plt Count (150 - 400 x10 3/uL) 451 H MPV (7.0 - 9.0 fL) 9.5 H Francia t % (Auto) (56.0 - 77.0 %) 83.9 H Lymph % (Auto) (14.0 - 32.0 %) 7.1 L [place] % (Auto) (4.8 - 9.0 % ) 8.1 Eos % (Auto) (0.3 - 3.7 %) 0.4 Baso % (Auto) (0.0 - 2.0 %) 0.1 Neut # (Auto) (2.0 - 7.6 x10 3/uL) 9.37 H Lymph # (Auto) (1.0 - 3.8 x10 3/uL) 0.79 L [place] # (Auto) (0.1 - 0.8 x10 3/uL) 0.90 H Eos # (Auto) (0.0 - 0.2 x10 3/uL) 0.05 Baso # (Auto) (0.0 - 0.2 x10 3/uL) 0.01 Abs Immat Gran (auto) (0.00 - 0.03 x10 3/uL) 0.05 H Add Manual Diff NO Immature Gran % (0.0 - 2.0 %) 0.4 Nucleated RBC % (0 - 0 %) 0.0 Nucleated RBCs # (Man) (0.0 - 0.1 x10 3/uL) 0.[address] ABD PELVIS W/CONT [id number] EXAM: CT abdomen and pelvis with contrast Dictation location: E5 INDICATION: Abdominal pain COMPARISON: CT abdome n and pelvis on 01/20/2023 TECHNIQUE: Axial images of the abdomen and pelvis were obtained with 100 mL Isovue-300 IV contrast. Unless otherwise specified, incidental findings do not require dedicated imaging follow-up. Coronal and sagitta l reformatted images were performed. Estimated GFR is greater than 60. DISCUSSION: Lower thorax: A small right pleural effusion is noted, with adjacent mild compressive atelectasis of the right lower lobe. A small to moderate size hiata l hernia is noted. Hepatobiliary: Unremarkable. No biliary ductal dilatation. Gallbladder: Unremarkable. Spleen: Unremarkable. Pancreas: Unremarkable. Kidneys: There is moderate bilateral hydronephrosis to the level of the bladder. No definite urinary tract calculus is seen when accounting for early excretion of contrast from the kidneys. No solid renal mass i s identified. There is prominent right perinephric and right periureteral fat stranding to the leve l of the mid ureter, possibly related to forniceal rupture; this is similar compared to the previou s exam. Adrenals: Unremarkable. Lymph nodes: No lymphadenopathy. Peritoneum/retroperitoneum: Right retroperitoneal fluid as described above. No intraabdominal free air or free fluid. Vessels: Mild to moderate atherosclerotic calcification, without abdominal aortic aneurysm . Pelvic organs/bladder: Moderate to marked prostatomegaly. A Black catheter also decompresses the bladder. Bowel: No abnormal bowel wall thickening or evidence of obstruction . The appendix is normal. Bones/soft tissues: No [...] 2. Additional findings include a small right pleura l effusion with adjacent mild compressive atelectasis of the right lower lobe, a small to moderate size hiatal hernia, and moderate to marked prostatomegaly. One or more of the following dose reduction techniques were used: Automated exposure control, adjustment of the mA and/or kV according to patient size, and/or utilization of iterative reconstruction technique. Discharge Instructions PCPPCP:PCP: Lakhwinder Guillermo MD )( Discharge to: Home/Self Care Discharge InstructionsAdditional Discharge Routines: PCP Follow-Up, Clinical Trials Specialist Follow-Up)( Diet: Regular Follow-up AppointmentsPCP follow up: PCP: Lakhwinder Guillermo MD PC P follow up timeframe: In 5 daysAttending Physician: Attending Physician: Salinas Alba MD Attending physician follow up timeframe: In 1-2 weeksConsulting provider 1: Provider 1: Dave Jones MD Specialty: Urology Consult follow up timeframe: In 1-2 weeks at [facility] #:[id number] OF REPORTDSDischarge ldqfoxj5435-08-47U26:12:00G.[id number] v ailable for patient [id number]:16:15 2023-02-04 04:06:00 [id number]:06:00 [facility] ([facility])Discharge SummaryREPORT#:[id number] REPORT STATUS: SignedREPORT INITIALIZATION DATE:02/04/23 TIME: 405 PATIENT: MATHEW CASTILLO UNIT #: [id number]#: [id number] [address] [birth year] AGE: 62 SEX: M ATTEND: Salinas Alba I MDADM AUTHOR: Salinas Alba I MDREPT SERVICE DT/TIME: 02/04/23 040* ALL edits or amendments must be made on the electronic/computer document * PCP PCPPCP:PCP: Lakhwinder Guillermo MD Discharge to: home General InformationDate of admission:Observation Start Date: 01/05/23Date of admission: 01/06/23 Discharge date: 01/11/23Admission diagnosis:1. Hematuria s/p bladder lift2. Leukocytosis3. sepsis/UTI LAB REPORTS ANAEROBIC BOTTLE: GRAM POSITIVE COCCI IN PAIRS AND CHAINS, aerobic bottle pending.4. Cholelithiasis and mildly distended gallbladder.5. HX OF BPH, Hypertension , SchizophreniaDischarge diagnosis:N39.0 URINARY TRACT INFECTION, SITE NOT SPECIFIED R78.81 BACTEREMIA R31.0 GROSS HEMATURIA B95.2 ENTEROCOCCUS THE CAUSE OF DISEASES CLASSIFIED ELSEWHERE F17.200 NICOTINE DEPENDENCE, UNSPECIFIED, UNCOMPLICATED F20.9 SCHIZOPHRENIA, UNSPECIFIED I10 ESSENTIAL (PRIMARY) HYPERTENSIO N K44.9 DIAPHRAGMATIC HERNIA WITHOUT OBSTRUCTION O R GANGRENE K80.20 CALCULUS OF GALLBLADDER W/O CHOLECYSTITIS W/O OBSTRUCTION K82.8 OTHER SPECIFIED DISEASES OF GALLBLADDER N40.1 BENIGN PROSTATIC HYPERPLASIA WITH LOWER URINARY TRACT SYMP Hospital course:62-year-old male with last medical history of, BPH, s/p bladder lift yesterday by Dr. Jones transferred from [place] for urology evaluation secondary tohematuria after bladder irrigation failed. Patient was seen and evaluated by Dr. 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 [facility] with urinary retention.Abnormal labs: WBC 16.7, lctic acid-2.9, ua with trace leukocyte estrace and wbc>50CT abd/pelvis:1. Prostatomegaly. Decompressed bladder with a Black in place.2. No hydronephrosis. No enhancing renal masses.3. Cholelithiasis and mildly distended gallbladder.4. Moderate hiatal hernia.Patient wa s admitted for further evaluation and treatment. Urology consult was placed.01/06 Vital signs within normal limits.Hematuria was improved. 3 Uro continued to follow the patient. Stopped CBI , cleared for discharge with Black.01/08 Discharge planning: Home when medically cleared.01/09 Patient remained stableThe patient was on continuous telemetry, BP control, glycemic control, pain control, electrolyte control, DVT/GI prophylaxis. The patient was hemodynamically stable and was discharged home, follow-up with PCP. Discharge medications as per reconciliation list. Med Rec Med RecDischarge meds:Continue taking these medications:BENZTROPINE (BENZTROPINE) 0.5 MG TAB 1 MILLIGRAM ORAL DAILY. HALOPERIDOL (HALDOL) 10 MG TAB 10 MILLIGRAM ORAL TWICE DAILY. TAMSULOSIN ER (FLOMAX) 0.4 MG CAP.SR.24H 0.4 MILLIGRAM ORAL TWICE DAILY AT 6 AM AND 6 PM. Days = 30 Qty = 60 DOCUSATE SODIUM (COLACE) 100 MG CAP 100 MILLIGRA M ORAL TWICE DAILY NEEDED. as needed for CONSTIPATION Days = 30 Qty = 60 Start taking the following new medications:CEPHALEXIN (KEFLEX) 50 0 MG CAP 500 MILLIGRAM ORAL EVERY 6 HOURS. Days = 7 Qty = 28 No Refills CIPROFLOXACIN (CIPROFLOXACIN) 500 MG TAB 500 MILLIGRAM ORAL TWICE DAILY. Qty = 14 No Refills ObjectiveVS/I OLast Documented: Result Date Time Pulse Ox 100 01/11 1631 B/P 135/84 01/11 1631 B/P Mean 100.8 01/11 1631 O2 Delivery Room air 01/11 1631 Temp 36.5 01/11 1631 Pulse 74 01/11 1631 Resp 14 01/11 1631 PATIENT WEIGHT: Weight (lb): Weight (oz): Weight (kg): 70.909 General appearance: alert, awakeHead/Eyes: atraumatic, clear cornea, EOMI, normocephalic, normal conjunctiva/sclera, normal eyelids/periorb, PERRLANeck: non-tender, no bruit/NL carotids, no JVD, normal thyroid, supple/no meningismusCardiovascular: normal capillary refill, regular rate rhythmRespiratory : no distress, no tendernessAbdomen/GI: active bowel sounds, soft, non-tender, no guarding, no rebound, no distention, no mass/organomegaly, no pulsatile mass, no hernia, normal abdominalaorta Abdomen quadrants:LLQ normal bowel sounds, LUQ normal bowel sounds, RLQ normal bowel sounds, RU Q normal bowel soundsGenitourinary: urinary catheter, hematuriaExtremities: moves all, no edema-all extremities, normal capillary refill, normal range of motion, normal sensory, normal motor functionNeuro/SKILLS TRAINER: alert, oriented X 3Skin : dry, intact, no gross abnormalitiesPsychiatry: n o hallucinations, normal affect, normal judgment/insight, normal mood, not homicidal, no t suicidal Treatments ProceduresLab:Laboratory Tests 01/09 549 Chemistry Sodium (134 - 147 mEq/L) 139 Potassium (3.4 - 5.0 mEq/L) 4.2 Chloride (100 - 108 mEq/L) 105 Carbon Dioxide (2 1 - 33 mEq/l) 27 Anion Gap (0 - 20) 11 BUN (7 - 2 5 mg/dL) 12 Creatinine (0.6 - 1.3 mg/dL) 1.0 Glomerular Filtr Rate (80 - 90) 84.6 Glucose (77 - 141 mg/dL) 106 Calcium (8.0 - 10.5 mg/dL) 8.6 Laboratory Tests 01/09 549 Hematology WBC (4.5 - 11.0 x10 3/uL) 7.3 RBC (4.00 - 5.60 x10 6/uL) 3.69 L Hgb (12.5 - 16.9 g/dL) 10.4 L Hct (37.5 - 50.7 %) 32.8 L MCV (81.0 - 99.0 fL) 88.9 MCH (27.0 - 33.0 pg) 28.2 MCHC (33.0 - 37.0 g/dL) 31.7 L RDW (11.5 - 14.5 %) 13.7 Plt Count (150 - 400 x10 3/uL) 283 MPV (7.0 - 9.0 fL) 9.9 H Neut % (Auto) (56.0 - 77.0 %) 62.0 Lymph % (Auto) (14.0 - 32.0 %) 20.8 [place] % (Auto) (4.8 - 9.0 %) 7.7 Eos % (Auto) (0.3 - 3.7 %) 8.1 H Baso % (Auto) (0.0 - 2.0 %) 0.7 Neut # (Auto) (2.0 - 7.6 x10 3/uL) 4.51 Lymph # (Auto) (1.0 - 3.8 x10 3/uL) 1.51 [place] # (Auto) (0.1 - 0.8 x10 3/uL) 0.56 Eos # (Auto) (0.0 - 0.2 x10 3/uL) 0.59 H Baso # (Auto) (0.0 - 0.2 x10 3/uL) 0.05 Abs Immat Gran (auto) (0.00 - 0.03 x10 3/uL) 0.05 H Immature Gran % (0.0 - 2.0 %) 0.7 Nucleated RBC % (0 - 0 %) 0.0 Nucleated RBCs # (Man) (0.0 - 0.1 x10 3/uL) 0.[address] ABD PELVIS W/CON T 13139 H 20 TIME OF STUDY: 01/04/2023 7:55 PM REASON FOR EXAM: GROSS HEMATURIA COMPARISON: None. TECHNIQUE: Helical post contrast enhanced images were obtained through the abdomen and pelvis. Sagittal and coronal reformats were obtained and reviewed. One or more of the following radiation dose reduction techniques wa s used: automated exposure control, adjustment of mA and/or KV according to patient size, and/or utilization of iterative reconstruction technique. FINDINGS: CT Abdomen: The included lung bases are clear. There is a moderate hiatal hernia. Gallbladder is mildly distended. There i s cholelithiasis present. The liver, pancreas, kidneys, adrenal [...] mildly distended gallbladder. 4. Moderate hiatal hernia. Discharge Instruction s PCPPCP:PCP: Lakhwinder Guillermo MD )( Discharge to: Home/Self Care Discharge InstructionsAdditional Discharge Routines: PCP Follow-Up, Clinical Trials Specialist Follow-Up)( Diet: Cardiac Follow-up AppointmentsPCP follow up: PCP: Lakhwinder Guillermo MD PCP follow up timeframe: In 5 days Special instructions:CALL TO MAKE APPOINTMENTConsulting provider 1: Provider 1: Dave Jones MD Specialty: Urology Special instructions:CALL TO SCHEDULE APPOINTMENT at 0735 [facility] #:[id number] OF REPORTDSDischarge dinmozb4904-40-26Q79:06:00G.[id number] v ailable for patient cbxiVOIKZMLVJDIWYK7069-12-58K28:36:15 2023-01-27 18:31:00 [id number]:[id number] [place] [address] PATIENT NAME: MATHEW CASTILLO ADMIT DATE: 01/06/23ACCOUN T NO: [id number] ROOM NO: G.C146 AGE: 62 REPORT TYPE: 360 - QUERY RESPONSE DOCUMENT SEX: M ADMITTING PHYSICIAN:Salinas Alba MD ATTENDING PHYSICIAN:Salinas Alba MD Provider Query QUERY TEXT: Condition General 360MD Query relate d questions should be directed to: [facility] [employer] Query Helpline [Based on the belo w mentioned clinical indicators kindly clarify the condition being treated and evaluated (uti due t o black catheter, uti not due to black catheter,ut i due to urolift surgery , or other more appropriate diagnosis)?.] The patient's Clinical Indicators include:62 yo male with HTN, BPH, chronic indwelling black cath, s/p bladder liftyesterday per Dr. Jones presents with sydnee s hematuria associated with n/v. : ed physician record 01/04/2023sepsis/UTI LAB REPORTS ANAEROBIC BOTTLE: GRAM POSITIVE COCCI IN PAIRS ANDCHAINS, aerobic bottle pending.: H and P 01/05/2023Status post UroLift surgery on January 03, [address] José Miguel Jones : Infectious dis progress note 01/08/2023 Options provided:-- Respond - Create new note now-- Dismiss - Not applicable / Not valid-- Dismiss - Clinically unable to determine / Unknown-- Assign to another provider QUERY RESPONSE: uti-black Query created by: MADY PEREZ on 01/22/2023 2:50 A M at 1831 PATIENT NAME: MATHEW CASTILLO noteG.[id number] for patient [id number]:31:38 2023-01-27 13:09:00 [id number] [place] [address] PATIENT NAME: MATHEW CASTILLO ADMIT DATE: 01/06/23ACCOUN T NO: [id number] ROOM NO: G.C146 AGE: 62 REPORT TYPE: 360 - QUERY RESPONSE DOCUMENT SEX: M ADMITTING PHYSICIAN:Salinas Alba MD ATTENDING PHYSICIAN:Salinas Alba MD Provider Query QUERY TEXT: Condition General 360MD Query relate d questions should be directed to: [facility] Abigail g Query Helpline [Based on your medical judgement and the clinical indicators listed below kindly specify the underlying cause of the patient's heamaturia(Hematuria due to bladder lift surgery, hematuria due to UTI, hematuria unspecified, or other more appropriate diagnosis)?.] The patient's Clinical Indicators include:62-year-old male with last medical history of, BPH, s/p bladder lift yesterdayby Dr José Miguel Jones transferred from [place] for urolog y evaluation secondary tohematuria after bladder irrigation failedHematuria s/p bladder liftLeukocytosis : H and P 01/05/2023sepsis/UTI LAB REPORTS ANAEROBIC BOTTLE: GRAM POSITIVE COCC I IN PAIRS ANDCHAINS, aerobic bottle pending : H and P 01/05/2023 Options provided:-- Respond - Create new note now-- Dismiss - Not applicable / Not valid-- Dismiss - Clinically unable to determine / Unknown-- Assign to another provider QUERY RESPONSE: Hematuria due to bladder lift surgery Query created by: MADY PEREZ on 01/22/2023 2:55 AM Electronically Mel d by Salinas Dukes MD on 01/27/23 at 1309 PATIENT NAME: MATHEW CASTILLO noteG.[id number] for patient v[id number]:10:17 2023-01-27 13:09:00 [id number] [facility] [place] [address] PATIENT NAME: MATHEW CASTILLO ADMIT DATE: 01/06/23ACCOUN T NO: [id number] ROOM NO: G.C146 AGE: 62 REPORT TYPE: 360 - QUERY RESPONSE DOCUMENT SEX: M ADMITTING PHYSICIAN:Salinas Alba MD ATTENDING PHYSICIAN:Salinas Alba MD Provider Query QUERY TEXT: Condition General 360MD Query relate d questions should be directed to: [facility] [employer] Query Hel[employer] [Based on your clinical judgement, can you please clarify if Sepsis was confirmed, Sepsis not confirmed, or other more appropriate diagnosis?.] The patient' s Clinical Indicators include:sepsis/UTI LAB REPORTS ANAEROBIC BOTTLE: GRAM POSITIVE COCCI IN PAIRS ANDCHAINS, aerobic bottle pending.: H and P 01/05/2023ulse Ox 99 01/04 1926B/P 128/82 01/04 1926B/P Mean 97 01/04 1926O2 Delivery Room air 01/04 192Temp 37.4 01/04 192Pulse 102 01/04 1926Resp 16 01/04 1926Leukocytosis, UTI (urinary tract infection)WBC (4.5 - 11.0 x10 3/uL) 16.7 H : Ed physician record 01/04/2023His urine culture has shown growth of Pseudomonas aeruginosa and 1out of 2 blood culture has shown growth of Enterococcus faecalis.TheEnterococcus faecalis growing in 1 blood culture, likely could be eithercontaminant or financial services representative of transient bacteremia: progress note 01/11/2023 Options provided:-- Respond - Create new note now-- Dismiss - Not applicable / Not valid-- Dismiss - Clinically unable to determine / Unknown-- Assig n to another provider QUERY RESPONSE: sepsis was not confirmed, patient had localized infection Query created by: MADY PEREZ on 01/22/2023 3:09 AM at 1309 PATIENT NAME: MATHEW CASTILLO noteG.[id number] for patient [id number]:10:27 2023-01-22 12:19:00 [id number]:19:00 [facility] ([facility])Nephrology Consultation NoteREPORT#:[id number] REPORT STATUS : SignedREPORT INITIALIZATION DATE:01/22/23 TIME: 1219 PATIENT: MATHEW CASTILLO UNIT #: [id number]#: [id number] RO[place]ED[place] [facility] [place]DOB: [birth year] AGE: 62 SEX: M ATTEND: Salinas Alba I [facility] AUTHOR: Carmen KempPREPT SERVICE DT/TIME: 3 [id number]* ALL edits or amendments must be made on th e electronic/computer document * History of Presen t IllnessRequesting clinician: Salinas Deshpande/Elham Black for consult:Jax complaint:Urinary RetentionPCP:PCP: Lakhwinder Guillermo MD HPI: is a pleasant 62 years old male who is well known to us from previous hospitalization. His PMH is significant for schizophrenia, HTN, BPH, current everyday smoker . The patient has h/o urinary retention and CHANDRA 2/ 2 obstructive uropathy. He had black placed in 10/2022 w/ outpatient Urology followup. He had urolift on 01/03/23, then he presented earlier this month w/ hematuriawhich resolved w/ CBI. He was discharged home and voiding trial was attempted on01/14/23 in Urology clinic however, he again developed urinary retention and presented to outside hospital w/ CHANDRA w/ Cr 5.6. A coude catheter was placed, thepatient given empirc abx and transferred to [facility] [place] yesterday for furtherevaluation and management. Initial VS at the ER showed a temperature of 36.8c, pulse 94/min, respiration 16/min, BP 157/69 mm Hg and SpO2 97%. Laboratory data showe d mild leukocytosis w/ WBC of 11.2, azotemia w/ BU N 54, Cr 2.6. Nephrology is consulted for the management of CHANDRA. The patient seen and examined . He is AAOX3, resting in bed, breathing comfortably on RA. Urinary catheter to gravity w / good UOP, states abdominal pain is much better. History - Adult longitudinalPast medical history:Reports: Hypertension, BPH, Schizophrenia. Additional surgical history:None reportedAdditional family history:NoncontributoryAlcohol use: Denies EtOH useDrug use: Denies recreational drugsSmoking status for patients 13 years old or older: Never SmokerMedications:Home Medications: Medication Dose/Rte/Freq Days Qty Entered Last Max Daily Dose Reviewed BENZTROPINE 1 MG PO DAILY 10/16/22 01/21/23 Strength: 0.5 MG TAB 0923 1114 HALOPERIDOL (HALDOL) 10 MG PO BID 10/16/22 01/21/23 Strength: 10 MG TAB 0925 1114 TAMSULOSIN ER (FLOMAX) 01/21/23 01/21/23 Strength: 0.4 MG CAP.SR.24H 1114 1114 Current Hospital Medications:Autonomic Drugs Sig/Mark Start time Last Medication Dose Route Stop Time Status Admin Benztropine Mesylate 1 MG DAILY 01/22 0900 AC 01/22 (COGENTIN) PO 04/22 0859 091 2 Tamsulosin HCl 0.4 MG BID 01/21 2100 AC 01/22 (Flomax 0.4 mg) PO 04/21 2058 0912 Cardiovascula r Drugs Sig/Mark Start time Last Medication Dose Route Stop Time Status Admin Hydralazine HCl 10 MG Q6H PRN PRN 01/21 2330 AC (APRESOLINE) IV 04/21 232 Central Nervous System Agents Sig/Sc h Start time Last Medication Dose Route Stop Time Status Admin Acetaminophen 650 MG Q4H PRN PRN 01/21 2330 AC (TYLENOL) PO 04/21 232 Hydrocodone Bitart/ 1 TAB Q6H PRN PRN 01/21 2330 AC Acetaminophen PO 01/26 232 (NORCO 7.5/325 TABLET) Haloperidol 10 MG BID 01/21 2100 AC 01/05 8 (HALDOL) PO 04/21 Acetaminophen 650 MG Q4H PRN PRN 01/21 0645 DC (TYLENOL) PO 01/22 053 3 Diagnostic Agents Sig/Mark Start time Last Medication Dose Route Stop Time Status Admin Iopamidol 100 ML .STK-MED ONE 01/22 1234 DC 01/05 8 (ISOVUE-300 100ML) IV 01/22 1235 1234 Electrolytic, Caloric, And Scott Sig/Mark Start maye e Last Medication Dose Route Stop Time Status Admi n Sodium Chloride 1,000 ML .[id number] 01/21 2330 AC 01/22 (SODIUM CHLORIDE IV 04/21 2328 1359 0.9%) Sodium Chloride 1,000 ML .Q10H 01/21 0645 DC 01/21 (SODIUM CHLORIDE IV 01/22 0533 1651 0.9%) Gastrointestinal Drugs Sig/Mark Start time Last Medication Dose Route Stop Time Status Admin Docusate Sodium 100 MG BID PRN PRN 01/21 2330 AC (COLACE) PO 04/21 2328 Ondansetron HCl 4 MG Q4H PRN PRN 01/21 233 AC (ZOFRAN) IV 04/21 232 Ondansetron HCl 4 MG Q6H PRN PRN 01/21 0645 DC (ZOFRAN) IV 01/22 0533 Allergies:Coded Allergies:No Known Allergies (10/16/22) Review o f SystemsAdditional notes:A 12 point ROS is obtained and is negative unless specified in HPI Objective GeneralVS/I O:Vital Signs: Date Time Temp Pulse Resp B/P B/P Pulse O2 O2 Flow FiO2 Mean Ox Delivery Rate 01/22 1610 36.9 78 16 114/64 80.9 98 01/22 1040 36.6 88 16 122/66 84.9 97 01/22 0735 37.0 83 20 109/69 82.1 95 01/22 0435 36.9 85 14 119/69 85.9 97 01/21 2352 36.8 8 8 14 137/82 100.0 96 01/21 1953 37.0 87 14 120/74 89.5 98 24 hour I O ending at 0700: 01/22 0700 01/21 1900 Intake Total Output Total 2100 Balanc e -2100 Output, Urine 2100 PATIENT WEIGHT: Weight (lb): Weight (oz): Weight (kg): 70.909 Medications:Active Meds + DC'd Last 24 HrsIopamidol (ISOVUE-300 100ML) 100 ML .STK-MED ONE IV (DC) Benztropine Mesylate (COGENTIN) 1 MG DAILY PO Acetaminophen (TYLENOL) 650 MG Q4H PRN PRN PO Docusate Sodium (COLACE) 100 MG BID PRN PRN PO Hydralazine HCl (APRESOLINE) 10 MG Q6H HI N PRN IV Hydrocodone Bitart/Acetaminophen (NORCO 7.5/325 TABLET) 1 TAB Q6H PRN PRN PO Ondansetron HCl (ZOFRAN) 4 MG Q4H PRN PRN IV Sodium Chloride (SODIUM CHLORIDE 0.9%) 1,000 ML .[id number] IV Haloperidol (HALDOL) 10 MG BID PO Tamsulosin HCl (Flomax 0.4 mg) 0.4 MG BID PO Acetaminophen (TYLENOL) 650 MG Q4H PRN PRN PO (DC) Ondansetron HCl (ZOFRAN) 4 MG Q6H PRN PRN IV (DC) Sodium Chloride (SODIUM CHLORIDE 0.9%) 1,000 ML .Q10H I V (DC) Physical ExamGeneral appearance: alert, awake, oriented, no acute distressHead/eyes: atraumatic, clear cornea, normal conjunctiva/sclera, normocephalicENT: normal noseNeck: supple/no meningismusCardiovascular: normal heart soundsRespiratory: aerating well, clear to auscultation, no distressAbdomen: non-tender, soft, no reboundGenitourinary: urinary catheter, urineExtremities: no edema ResultsFindings/Data:Laboratory Tests 01/22 062 4 Chemistry Sodium (134 - 147 mEq/L) 137 Potassium (3.4 - 5.0 mEq/L) 4.1 Chloride (100 - 108 mEq/L) 104 Carbon Dioxide (21 - 33 mEq/l) 25 Anion Gap (0 - 20) 12 BUN (7 - 25 mg/dL) 24 Creatinine (0. 6 - 1.3 mg/dL) 1.1 Glomerular Filtr Rate (80 - 90) 75.4 L Glucose (77 - 141 mg/dL) 102 Calcium (8.0 - 10.5 mg/dL) 7.4 L Phosphorus (2.5 - 4.9 MG/DL) 2.4 L Magnesium (1.6 - 2.6 mg/dL) 1.69 Laborator y Tests 01/22 0624 Hematology WBC (4.5 - 11.0 x10 3/uL) 9.9 RBC (4.00 - 5.60 x10 6/uL) 3.36 L Hgb (12.5 - 16.9 g/dL) 9.6 L Hct (37.5 - 50.7 %) 29. 1 L MCV (81.0 - 99.0 fL) 86.6 MCH (27.0 - 33.0 pg) 28.6 MCHC (33.0 - 37.0 g/dL) 33.0 RDW (11.5 - 14.5 %) 13.9 Plt Count (150 - 400 x10 3/uL) 403 H MPV (7.0 - 9.0 fL) 9.3 H Neut % (Auto) (56.0 - 77.0 %) 74.6 Lymph % (Auto) (14.0 - 32.0 %) 9.8 L [place] % (Auto) (4.8 - 9.0 %) 9.0 Eos % (Auto) (0.3 - 3.7 %) 5.7 H Baso % (Auto) (0.0 - 2.0 %) 0.4 Neut # (Auto) (2.0 - 7.6 x10 3/uL) 7.35 Lymp h # (Auto) (1.0 - 3.8 x10 3/uL) 0.97 L [place] # (Auto) (0.1 - 0.8 x10 3/uL) 0.89 H Eos # (Auto) (0.0 - 0.2 x10 3/uL) 0.56 H Baso # (Auto) (0.0 - 0.2 x10 3/uL) 0.04 Abs Immat Gran (auto) (0.00 - 0.03 x10 3/uL) 0.05 H Immature Gran % (0.0 - 2.0 %) 0.5 Nucleated RBC % (0 - 0 %) 0.0 Nucleated RBCs # (Man) (0.0 - 0.1 x10 3/uL) 0.00 Microbiology Date/Time Procedure - Status Source Growth 01/22 1042 MRSA DNA Surveillance Screen - COMP NASAL Radiology data:Recent Impressions:CAT SCAN - CT ABD PELVIS W/CONT 01/22 1231 Report Impression - Status: SIGNED Entered: 01/22/2023 1304 IMPRESSION:1. Moderate bilateral hydroureteronephrosis at the level of thebladder . There is moderate to marked prostatomegaly. Thes e findingscould be on the basis of chronic bladder outlet obstruction. Prominent right perinephric fat stranding continuing inferiorlyadjacent to the right ureter is similar compared to the previous exam,possibly related to forniceal rupture. A Black catheter mostlydecompresses the bladder.2. Additional findings include a small right pleural effusion withadjacent mild compressive atelectasis of the right lower lobe, a smallto moderate size hiatal hernia, and moderate to marked prostatomegaly. One or more o f the following dose reduction techniques were used:Automated exposure control, adjustment of the mA and/or kV accordingto patient size, and/o r utilization of iterative reconstructiontechnique.DLP: 264 mGy-cm CTDI: 21 2 mGy Impression By: Gurdeep - John Berumen M.D. Diagnosis, Assessment Plan Free Text DxA P NotesFree text DxA P notes:Assessment and Plan: CHANDRA (Resolved)-Renal function improved and wnl, s/p urinary catheter placement for obstructiveurpathy. Cr was 5.6 at outside hospital. On IVF, NS. Received contrast on 01/22/23.-Monitor for post-obstructive diuresis. -CTAP w/ contrast (01/22/23): Moderate bilateral hydroureteronephrosis at the level of the bladder. There is moderate to marked prostatomegaly. These findings could be on the basis of chronic bladder outlet obstruction. Prominent right perinephric fat stranding continuing inferiorly adjacent to the right ureter is similar compared to the previous exam, possibly related to forniceal rupture. A Black catheter mostly decompresses the bladder. Additional findings include a small right pleura l effusion with adjacent mild compressive atelectasis of the right lower lobe, a small to moderate size hiatal hernia, andmoderate to marked prostatomegaly.-Avoid nephrotoxicity monitor renal function and UOP Hypomagnesmeia/Hypophosphatemia-Replace Mg, monitor. Urinary Retention/BPH-Urinary catheter to gravity, Urology following, on Tamsulosin-S/p Urolift on 01/03/23 per Urology. HTN-BP acceptable, monitor, on PRN IV hydralazine Schizophrenia-Home medications resumed Further recommendations based on the clinical course of the patient. I would like to thank and Sofia for the consult and involving us in the care of this patient. Discussed the plan with th e patient, patient's nurse, and . at 1923 at 1933 RPT #:[id number] OF [id number]:19:00G.PDOC 2 [id number] for patient [id number]:23:39 2023-01-21 19:40:00 [id number]:40:00 [facility] ([facility])Urology Consult NoteREPORT#:[id number] REPORT STATUS: SignedREPOR T INITIALIZATION DATE:01/21/23 TIME: 1939 PATIENT: MATHEW CASTILLO UNIT #: [id number]# : [id number] ROOM/BED: 5507-1DOB: [birth year] AGE: 62 SEX: M ATTEND: Salinas Alba AUTHOR: Crystal Alberts SERVIC E DT/TIME: 01/21/231939* ALL edits or amendments must be made on the electronic/computer document * History of Present Illness HPIRequesting clinician: Dr. Fernanda Gary for consult:Urinary retention Chief complaint:urinar y retention HPI:Mathew Castillo is a 2-year-old male with hypertension, schizophrenia, BPH with urinary retention who follows with Dr. Jones and is s/p UroLift 01/03/2023. Patient had readmission earlier this month for hematuria after UroLift however this resolved with conservative measures. He was discharged and the n had recent voiding trial 01/14/23 in clinic however send have urinary retention at outside hospital and was transferred to [place] with acute renal failure and urinary retention. Outside labs showed creatinine of 5.6, GFR 11. [facility] and his creatinine currently is 2.6 GFR 27. Patient feels overall well he has a [address] that is patent and draining clear urine. HistoryPast medical history:Reports: Hypertension, BPH, Schizophrenia. Additional surgical history:None reportedAdditional family history:NoncontributoryAlcohol use: Denies EtOH useDrug use: Denies recreational drugsSmoking status for patients 13 years old or older: Never SmokerAllergies:Coded Allergies:No Known Allergies (10/16/22) Review of Systems ROSConstitutional:Denies: chills, fatigue, generalized weakness. :Reports: urinary retention. Denies: dysuria, flank pain, frequency. ObjectiveVS/I O:Last Documented: Result Date Time Pulse Ox 98 01/22 1628 B/P 117/73 01/22 1628 B/P Mean 87.3 01/22 1628 Temp 98.2 01/22 1628 Pulse 82 01/22 1628 Resp 16 01/05 7 1628 O2 Delivery Room air 01/22 516 24 hour I O ending at 0700: 01/21 0700 01/20 1900 Intake Total Output Total Balance Patient 70.909 kg Weight Weight Stated/Reported Measurement Method PATIENT WEIGHT: Weight (lb): Weight (oz): Weight (kg): 70.909 ResultsFindings/Data:Laboratory Tests: 01/21 518 Chemistry Sodium (134 - 147 mEq/L) 134 Potassium (3.4 - 5.0 mEq/L) 4.4 Chloride (100 - 108 mEq/L) 102 Carbon Dioxide (2 1 - 33 mEq/l) 22 Anion Gap (0 - 20) 14 BUN (7 - 25 mg/dL) 54 H Creatinine (0.6 - 1.3 mg/dL) 2.6 H Glomerular Filtr Rate (80 - 90) 26.9 L Glucose (77 - 141 mg/dL) 111 Calcium (8.0 - 10.5 mg/dL) 8.2 Hematology WBC (4.5 - 11.0 x10 3/uL) 11.2 H RBC (4.00 - 5.60 x10 6/uL) 3.66 L Hgb (12.5 - 16.9 g/dL) 10.3 L Hct (37.5 - 50.7 %) 31.6 L MC V (81.0 - 99.0 fL) 86.3 MCH (27.0 - 33.0 pg) 28.1 MCHC (33.0 - 37.0 g/dL) 32.6 L RDW (11.5 - 14.5 %) 13.9 Plt Count (150 - 400 x10 3/uL) 451 H MPV (7.0 - 9.0 fL) 9.5 H Neut % (Auto) (56.0 - 77.0 %) 83.9 H Lymph % (Auto) (14.0 - 32.0 %) 7.1 L [place] % (Auto) (4.8 - 9.0 %) 8.1 Eos % (Auto) (0.3 - 3.7 %) 0.4 Baso % (Auto) (0.0 - 2.0 %) 0. 1 Neut # (Auto) (2.0 - 7.6 x10 3/uL) 9.37 H Lymph # (Auto) (1.0 - 3.8 x10 3/uL) 0.79 L [place] # (Auto) (0.1 - 0.8 x10 3/uL) 0.90 H Eos # (Auto) (0.0 - 0.2 x10 3/uL) 0.05 Baso # (Auto) (0.0 - 0.2 x10 3/uL) 0.01 Abs Immat Gran (auto) (0.00 - 0.03 x1 0 3/uL) 0.05 H Add Manual Diff NO Immature Gran % (0.0 - 2.0 %) 0.4 Nucleated RBC % (0 - 0 %) 0.0 Nucleated RBCs # (Man) (0.0 - 0.1 x10 3/uL) 0.00 Results: labs reviewed, vital signs reviewedFree text obj notes:Physical Examination: Constitutional: no acute distressEyes: normal external eye, conjunctiva and sclera normalEars, nose, mouth, throat: normocephalic, moist mucous membranesRespiratory: respirations unlabored on room airGastrointestinal: soft, non-distended, non-tenderGenitourinary: circumcised, normal phallus, bilateral descended testes, Black catheter in place patent and draining clear urineMusculoskeletal: no clubbing, cyanosis or edemaSkin: no rashesNeurologic: no focal deficitsPsychiatric: appropriate mood and affectHematologic: no bruising Diagnosis, Assessment Plan Diagnosis, Assessment PlanFree Text A P:This is a 62-year-old male with BPH and urinary retention s/p UroLift with persistent retention. He had voiding trial most recently 01/14/2023 however wasfound to have acute renal failure in outside hospital and was transferred to [place]. He has indwelling Black placed fro m the outside hospital that is patent and draining clear urine. Creatinine has down trended to 2.6 from 5.6. -Continue indwelling Black do not remove-Trend creatinine-Discussed patient to follow-up with our clinic 01/30/2023 for nurse visit catheter removal and CIC teaching for whgwen h he was amenable to trying Crystal Alberts MD -covering for Dr. Jones [facility] at 1948 RPT #:[id number] OF REPORTZCCdjwlpvvugpt6050-00-02V73:40:00G.PDOC 2 [id number] for patient [id number]:48:32 2023-01-21 10:48:00 [id number]:48:00 [facility] ([facility])History Physical - AdultREPORT#:[id number] REPORT STATUS: SignedREPORT INITIALIZATION DATE:01/21/23 TIME: 1047 PATIENT: MATHEW CASTILLO UNIT #: [id number]#: [id number] ROOM/BED: 55071DOB: [birth year] AGE: 62 SEX: M ATTEND: Salinas Alba I [facility] AUTHOR: Sofia Cheng NPREPT SERVICE DT/TIME: 01/21/23 1048* ALL edits or amendments must be made on th e electronic/computer document * History of Presen t Illness HPIChief complaint:Acute kidney injuryUrinary retentionHPI: 62-year-old male wit h last medical history of, BPH-s/p UroLift 01/03/2023, schizophrenia was transferred from [facility] ER with acute kidney injury and urinary retention. Patient reports he presented to the ER with complaint ofabdominal pain, he began having urinary retention 1 week after the black catheter was removed and progressively worsened. Patient had a coude catheter placed reported labs revealed creatinine of 5.6 and BUN of 105. Patient was given cefepime 1 g and Merre m 500 mg and a bolus of normal saline prior to arrival.Patient denies fever, chills, nausea, vomiting, chest pain, shortness of breath,or other associated symptoms. He reports his abdominal pain is better after theFoley catheter was inserted.Admission vital signs:Blood pressur e 157/69, pulse 94, respirations 16, temperature 36.8, O2 sat 97% on room air.01/21/23 0518:[Embedded Image Not Available] HistoryPast medical history:Reports: Hypertension, BPH, Schizophrenia. Additional surgical history:None reportedAdditional family history:NoncontributoryAlcohol use: Denies EtOH useDrug use: Denies recreational drugsSmoking status for patients 13 years old or older: Never Smoker Medication/Allergy-Vaccine HxAllergies:Coded Allergies:No Known Allergies (10/16/22) Review of SystemsConstitutional:Denies: chills, fever. ENT:Denies: earache, nasal congestion, sore throat. Respiratory:Denies: hemoptysis, parox nocturnal dyspnea, pleurisy, pleuritic pain, pneumonia, SOB, wheezing. Cardiovascular:Denies: chest pain, palpitations. GI:Reports: abdominal pain, nausea. Denies: vomiting. :Reports: urinary retention. Denies: flank pain, frequency , hematuria. Musculoskeletal: Arthritis: Denies: left upper, left lower, right upper, right lower . Neuro:Denies: change in LOC, confusion, dizziness, focal weakness, gait problem, headache, lightheaded, numbness, seizure, slurre d speech, spinning sensation, syncope, unable to speak, vision change. Psych:Reports: anxiety. Physical ExamVS/I OVital Signs: Date Time Temp Pulse Resp B/P B/P Pulse O2 O2 Flow FiO2 Mean Ox Delivery Rate 01/21 0900 90 21 147/70 101 97 01/21 0730 85 15 126/81 99 96 01/21 0645 86 16 122/66 88 97 01/21 0615 90 15 116/66 84 97 01/21 0545 95 14 110/61 82 97 01/21 0530 89 14 129/64 91 96 01/21 0523 157/69 98 01/21 0516 36.8 94 1 6 97 Room air 24 hour I O ending at 0700: 01/21 0700 01/20 1900 Intake Total Output Total Balance Patient 70.909 kg Weight Weight Stated/Reported Measurement Method PATIENT WEIGHT: Weight (lb): Weight (oz): Weight (kg): 70.909 General appearance: alert, awakeHead/Eyes : atraumatic, clear cornea, EOMI, normocephalic, normal conjunctiva/sclera, normal eyelids/periorb, PERRLACardiovascular: regular rate rhythmRespiratory: clear to auscultation, n o distress, no tendernessAbdomen/GI: active bowel sounds, soft Abdomen quadrants:LLQ normal bowel sounds, LLQ tenderness, LUQ normal bowel sounds, RLQ normal bowel sounds, RLQ tenderness, RUQ normal bowel soundsGenitourinary: urinary catheterExtremities: moves all, no edema-all extremities, normal capillary refill, normal range of motion, normal sensory, normal motor functionNeuro/SKILLS TRAINER: alert, oriented X 3Skin: dry, intact, no gross abnormalitiesPsychiatry: no hallucinations, normal affect, normal judgment/insight, normal mood, not homicidal, no t suicidal ResultsFindings/Data:Laboratory Tests: 01/21 0518 Chemistry Sodium (134 - 147 mEq/L) 134 Potassium (3.4 - 5.0 mEq/L) 4.4 Chloride (100 - 108 mEq/L) 102 Carbon Dioxide (21 - 33 mEq/l) 22 Anion Gap (0 - 20) 14 BUN (7 - 25 mg/dL) 54 H Creatinine (0.6 - 1.3 mg/dL) 2.6 H Glomerular Filtr Rate (80 - 90) 26.9 L Glucose (77 - 141 mg/dL) 111 Calcium (8.0 - 10.5 mg/dL) 8.2 Hematology WBC (4.5 - 11.0 x10 3/uL) 11.2 H RBC (4.00 - 5.60 x10 6/uL) 3.66 L Hgb (12.5 - 16.9 g/dL) 10.3 L Hct (37.5 - 50.7 %) 31.6 L MCV (81.0 - 99.0 fL) 86.3 MCH (27.0 - 33.0 pg) 28.1 MCHC (33.0 - 37.0 g/dL) 32.6 L RDW (11.5 - 14.5 %) 13.9 Plt Count (150 - 400 x10 3/uL) 451 H MP V (7.0 - 9.0 fL) 9.5 H Neut % (Auto) (56.0 - 77.0 %) 83.9 H Lymph % (Auto) (14.0 - 32.0 %) 7.1 L [place] % (Auto) (4.8 - 9.0 %) 8.1 Eos % (Auto) (0. 3 - 3.7 %) 0.4 Baso % (Auto) (0.0 - 2.0 %) 0.1 Neut # (Auto) (2.0 - 7.6 x10 3/uL) 9.37 H Lymph # (Auto) (1.0 - 3.8 x10 3/uL) 0.79 L [place] # (Auto) (0.1 - 0.8 x10 3/uL) 0.90 H Eos # (Auto) (0.0 - 0.2 x10 3/uL) 0.05 Baso # (Auto) (0.0 - 0.2 x10 3/uL) 0.01 Abs Immat Gran (auto) (0.00 - 0.03 x1 0 3/uL) 0.05 H Add Manual Diff NO Immature Gran % (0.0 - 2.0 %) 0.4 Nucleated RBC % (0 - 0 %) 0.0 Nucleated RBCs # (Man) (0.0 - 0.1 x10 3/uL) 0.00 Free Text PE NotesFree Text PE Notes: General appearance: alert, awakeNeck: non-tender, no bruit/NL carotids, no JVD, normal thyroid, supple/no meningismusCardiovascular: regular rat e rhythmRespiratory: no distress, no tendernessAbdomen/GI: active bowel sounds, soft, non-tender, no guarding, no rebound, no distention, no mass/organomegaly, no pulsatile mass, no hernia, normal abdominalaorta Abdomen quadrants:LLQ normal bowel sounds, LUQ normal bowel sounds, RLQ normal bowel sounds, RUQ tanya l bowel soundsGenitourinary: urinary catheter with normal color urineExtremities: moves all, no edema-all extremities, normal capillary refill, normal range of motion, normal sensory, normal motor functionNeuro/SKILLS TRAINER: alert, oriented X 3Skin : dry, intact, no gross abnormalitiesPsychiatry: Mild anxiety Diagnosis, Assessment Plan Free Cal t DxA P NotesFree Text DxA P Notes:Assessment:62-year-old male with last medical history of, BPH-s/p UroLift 01/03/2023, schizophrenia was transferred from [facility] ER with acute kidney injury and urinary retention. Patient reports he presented to the E R with complaint ofabdominal pain, he began having urinary retention 1 week after the black cathete r was removed and progressively worsened. Patient had a coude catheter placed reported labs revealed creatinine of 5.6 and BUN of 105. Patient was given cefepime 1 g and Merrem 500 mg and a bolus of normal saline prior to arrival.Patient denies fever, chills, nausea, vomiting, chest pain, shortness of breath,or other associated symptoms. He reports his abdominal pain is better after theFoley catheter was inserted.Admission vital signs:Blood pressur e 157/69, pulse 94, respirations 16, temperature 36.8, O2 sat 97% on room air.01/21/23 0518:[Embedded Image Not Available] 1. Acute kidney injury2. Obstructive uropathy3. Leukocytosis4. BPH status post UroLift5. HX OF BPH, Hypertension, Schizophrenia Plan of care:Admit patient for further evaluation and treatmentUrology consultation in placeKeep FoleyPain controlProphylactic antibiotics continue with cefepime 1 g every 6Monitor electrolytes and replace as neededRepeat labsFurther recommendation based on patient's clinical course at 0300 at 1108 RPT #:[id number] OF REPORTHPHistory and physical [id number]:48:00G.[id number] 0 AVAvailable for patient [id number]:00:45 2023-01-21 05:27:00 [id number]:27:00 [facility] ([facility])EMERGENCY PROVIDER REPORTREPORT#:[id number] REPORT STATUS: SignedDATE:01/21/23 TIME: 526 PATIENT: MATHEW CASTILLO UNIT #: [id number]# : [id number] ROOM/BED: 5507-1AGE: 62 SEX: M PCP PHYS: Lakhwinder Guillermo MDSERVICE AUTHOR: Elizabeth Davenport * ALL edits or amendments must be made on the electronic/computer document * Elizabeth Davenport 01/21/23 0527:HPI-General Illness Free Text HPI NotesFree Text HPI [id number] male with PM H as listed below presents to the ER as a transfer from [facility] ER for diagnoses of ARF, urinary retention. Patient presented to the ER for evaluation of abdominal pain and urin e retention that started 1 week ago after having his black catheter removed. A 14fr coude cathete r was placed. Diagnostic w/u noted WBC of 14, creatinine 5.6, GFR 11, TCW161. 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 He denies any additional symptom s such as recentfever, chest pain, shortness of breath, N/V/D/C, testicular pain or any other symptoms. GeneralInitial Greet Date/Time 3 0514Cecile, uroAMIN, PCP, [facility]eraid PresentationChief Complaint __ (urine retention)Hx Obtained From Patient Review of Systems ROS StatementsAll systems rev neg except as marked. Free Text ROS NotesFree Text ROS NotesUrine retention, abdominal pain Past Medica l History - AdultStated Complaint URINARY RETENTIONAllergiesCoded Allergies:No Known Allergies (10/16/22) Home MedicationsDiscontinue d ScriptsCEPHALEXIN (KEFLEX) 500 MG PO Q6H 7 Days #28 CAPS Prov: 01/11/23 DC: 01/21/23 1111 Change d since prior admitCIPROFLOXACIN 500 MG PO BID CIPROFLOXACIN 500 MG PO BID #14 TABS Prov: 01/11/23 DC: 01/22/23 1357 Discontinued as per MDTAMSULOSIN ER (FLOMAX) 0.4 MG PO BID 6A 6P 30 Days #60 CAP Prov: 10/26/22 DC: 01/21/23 1111 Changed since prior admitDOCUSATE SODIUM (COLACE ) 100 MG PO BID PRN PRN CONSTIPATION 30 Days #60 CAP Prov: 10/26/22 DC: 01/21/23 1111 Changed since prior admit Reported MedicationsBENZTROPIN E 1 MG PO DAILY HALOPERIDOL (HALDOL) 10 MG PO BID TAMSULOSIN ER (FLOMAX) Discontinued Reported MedicationsBENZTROPINE 0.5 MG PO DAILY Past Medical History:Reports: Hypertension, BPH, Schizophrenia. Additional Surgical HistoryNone reportedAdditional Family HistoryNoncontributoryAlcohol Use Denies EtOH useDrug Use Denies recreational drugsSmoking status for patients 13 years old or older: Never Smoker Physical Exam Vital SignsVital SignsFirst Documented: Result Date Time Pulse Ox 97 01/22 516 O2 Delivery Room air 01/22 516 Temp 36.8 01/22 516 Pulse 94 01/22 516 Resp 16 01/21 051 6 B/P 157/69 01/21 523 B/P Mean 98 01/21 523 Last Documented: Result Date Time Pulse Ox 97 01/21 0615 B/P 116/66 01/21 0615 B/P Mean 84 01/21 615 Pulse 90 01/21 615 Resp 15 01/21 061 5 O2 Delivery Room air 01/22 516 Temp 36.8 01/21 0516 Review of Vital Signs Reviewed Free Text PE NotesFree Text PE NotesGen: Well appearing, appears comfortable, cooperativeHead: NormocephalicEyes: Keeps eyes closed during interactionThroat: Moist mucous membranes, handling secretions. Airway patent. Neck: FROM, suppleLungs: CTA all lobes. Respirations NL. No wheezing, No rhonchi, No dyspnea. No stridor or accessory muscle use. Heart/Chest: Regular rhythm, rate. No murmursAbd: Soft, non-tender, non-distended, no rebound, guarding, or peritoneal sxs. No palpable masses or pulsatile masses. Negative [place] Sign. [facility] PointGU: Indwelling Black, straw-colored, non-cloudy urine, 600mlExt: no obvious deformity. Neuro: awake and alert, speec h NL for age, behavior age-appropriate. Skin: colo r NL, normal temperature, intact, no visible rashe s Interpretation Diagnostics Lab Results InterpretationResultsLaboratory Tests 01/21/23517:[Embedded Image Not Available]Laboratory Tests: 01/21 518 Chemistry Sodium (134 - 147 mEq/L) 134 Potassium (3.4 - 5.0 mEq/L) 4.4 Chloride (100 - 108 mEq/L) 102 Carbon Dioxide (2 1 - 33 mEq/l) 22 Anion Gap (0 - 20) 14 BUN (7 - 2 5 mg/dL) 54 H Creatinine (0.6 - 1.3 mg/dL) 2.6 H Glomerular Filtr Rate (80 - 90) 26.9 L Glucose (77 - 141 mg/dL) 111 Calcium (8.0 - 10.5 mg/dL) 8.2 Hematology WBC (4.5 - 11.0 x10 3/uL) 11.2 H RBC (4.00 - 5.60 x10 6/uL) 3.66 L Hgb (12.5 - 16.9 g/dL) 10.3 L Hct (37.5 - 50.7 %) 31.6 L MC V (81.0 - 99.0 fL) 86.3 MCH (27.0 - 33.0 pg) 28.1 MCHC (33.0 - 37.0 g/dL) 32.6 L RDW (11.5 - 14.5 %) 13.9 Plt Count (150 - 400 x10 3/uL) 451 H MPV (7.0 - 9.0 fL) 9.5 H Neut % (Auto) (56.0 - 77.0 %) 83.9 H Lymph % (Auto) (14.0 - 32.0 %) 7.1 L [place] % (Auto) (4.8 - 9.0 %) 8.1 Eos % (Auto) (0. 3 - 3.7 %) 0.4 Baso % (Auto) (0.0 - 2.0 %) 0.1 Francia t # (Auto) (2.0 - 7.6 x10 3/uL) 9.37 H Lymph # (Auto) (1.0 - 3.8 x10 3/uL) 0.79 L [place] # (Auto) (0.1 - 0.8 x10 3/uL) 0.90 H Eos # (Auto) (0.0 - 0.2 x10 3/uL) 0.05 Baso # (Auto) (0.0 - 0.2 x10 3/uL) 0.01 Abs Immat Gran (auto) (0.00 - 0.03 x1 0 3/uL) 0.05 H Add Manual Diff NO Immature Gran % (0.0 - 2.0 %) 0.4 Nucleated RBC % (0 - 0 %) 0.0 Nucleated RBCs # (Man) (0.0 - 0.1 x10 3/uL) 0.00 Lab StatementLaboratory studies reviewed and considered in the medical decision-making. Point of Care TestingPulse Oximetry Pulse Ox % 97 On: Room air Interpretation Interpreted by me, Pulse oximetry normal Time 0557 Re-Evaluation MDM Free Text MDM NotesFree Text MDM NotesPatient presenting with above clinical history and PE findings. I reviewed transfer EHR documentation. I did not see written report of the CT imaging. Patient did arrive with a CD containing CT imaging which was provided for our radiology department to upload. Review of current labs notes improved but persistent elevated creatinine, showing evidence of CHANDRA, as well as improved butpersistent leukocytosis. The above findings are likely secondary to obstructiveuropathy given the patient had complaint of urinary retention, requiring Black placement. Patient condition warrants admission, IV fluids, urology consultation and possibly nephrology consultationAdditional TextEmcare capped Re-Evaluation/Progress #1Text/Dict NotePatient remains awake, alert, and oriented. Skin color normal, respirations NL. I discussed results and need for admission. Patient verbalized understandingTime of Re-Eval 0620 ConsultationConsultation Free Text Consult NotesConsulted with Dr. Jones at 637AM 01/21/2023. Text message sent Patient Discharge Departure Vital Signs/ConditionVital SignsFirst Documented: Result Date Time Pulse Ox 97 01/22 516 O2 Delivery Room air 01/22 516 Temp 36.8 01/22 516 Pulse 94 01/22 516 Resp 16 01/22 516 B/P 157/69 01/21 523 B/P Mean 98 01/21 523 Last Documented: Result Date Time Pulse Ox 97 01/21 615 B/P 116/66 01/21 615 B/P Mean 84 01/21 615 Pulse 90 01/21 615 Resp 15 01/21 061 5 O2 Delivery Room air 10/17 0516 Temp 36.8 10/17 0516 All vital signs available at the time of this entry have been reviewed. Condition Guarded Clinical ImpressionClinical ImpressionPrimary Impression: CHANDRA (acute kidney injury)Secondary Impressions: Obstructive uropathy Disposition DecisionHospitalize Hosp Physician Name Salinas Alba MD [facility] Physician Hospitalist Request Time 06 Request Date 01/21/23 )( Accepts Hospitalization Yes )( Reason for HospitalizationAKI )( Accepted Time 06 )( Accepted Date 01/21/23 Call Information will see patient Discharge/Care PlanCounseled Regarding Diagnosis, Lab results, Need for follow-up, When to return to ED Critical CareTime Spent (minutes): 31Services Performed Patient management by me, Time spent at bedside, Reviewing test results, Reviewing imaging, Discussing patient care, Documentation in recordPatient was critically ill due to:AKIMy treatment and management were:Serum labs, IV fluids, monitoring of creatinine, admission with urology consultation Natalio Coker 01/21/23 0702:HPI-General Illness GeneralConfirmed Patien t YesPatient Type New patient PresentationChief Complaint __Hx Obtained From Patient, EMS, Prior medical recordsSudden in Onset? NoOnset Occurred One week agoSymptom Duration Since onsetProgression since Onset Intermittent, Waxes and wanes, Gradually worseningPain/Sev: Onset MildPain/Sev: Current Mild Past Medical History - AdultReview of Nursing Notes Rapid assess notes rev Physical Exam Vital SignsReview of Vital Signs Reviewed Interpretation Diagnostics Lab Results InterpretationConsiderations Independ review imaging, Reviewed prior records Lab StatementLaboratory studies reviewed and considered in the medical decision-making. Point of Care TestingPulse Oximetry Pulse Ox % 97 On: Room air Interpretation Interpreted by me, Pulse oximetry normal Time 0616 Re-Evaluation [facility] ED CourseMedication(s) OrderedMedication(s) Ordered:Central Nervous System Agents Sig/Mark Start time Last Medication Dose Route Stop Time Status Admin Acetaminophen 650 MG Q4H PRN PRN 01/21 645 DC PO 01/22 0533 Electrolytic, Caloric, And Scott Sig/Mark Start time Last Medication Dose Route Stop Time Status Admin Sodium Chloride 1,000 ML .Q10H 01/21 645 DC 01/21 IV 01/22 0533 1651 Gastrointestinal Drugs Sig/Mark Start time Last Medication Dose Route Stop Time Status Admin Ondansetron HCl 4 MG Q6H PRN PRN 01/21 0645 DC IV 01/22 0533 Patient Discharge Departure Vital Signs/ConditionCondition Guarded Supervising Physician Note MidLv/Doc Saw Pt 1I have personally seen the patient and I evaluated the patient along with involvement of the PA/GAME ENGINEER. I agree with the PA/web press operator findings and plan. I have performed all aspects of MDM as documented including: evaluation of the patient/patient's condition(s), review and analysis of available data, and determinationof risk of patient management decisions. at 2244 at 1025RPT #:[id number] OF REPORTEDEmersouth mississippi [facility] department [id number]:27:00G.[id number] a ilable for patient [id number]:46:19 2023-01-15 09:31:00 [id number]:[id number] [facility] [place] [address] PATIENT NAME: MATHEW CASTILLO ADMIT DATE: 01/06/23ACCOUN T NO: [id number] ROOM NO: [facility] AGE: 62 REPORT TYPE: 360 - QUERY RESPONSE DOCUMENT SEX: M ADMITTING PHYSICIAN:Salinas Alba MD ATTENDING PHYSICIAN:Salinas Alba MD Provider Query QUERY TEXT: Clarification Rule In Rule Out 360MD Query related questions should be directed to: [facility] Coding Query Help-line Based on your clinical judgment of the documente d diagnosis of Rule out urinary tract infection in the Infectious Dis. Progress Note 01/06/2023, sly n you clarify if the diagnosis has been ruled in, ruled out, or if there is a more appropriate diagnosis? The patient's Clinical Indicators include:Rule out urinary tract infection - Infectious Dis. Progress Note 01/06/2023urinary retention - Internal Medicine Prog. Note 01/10/2023Recurrent fever and leukocytosis improved.Rule out urinary tract infection.Urinalysis however, shows no bacteriuria.Doubt any new nosocomial acquired infection.Continue empiric IV antibiotics for now.cefTRIAXone 2,000 mg Inj - MAROptions provided:-- Ruled In, Please specify the diagnosis.-- Ruled Out, Please specify the diagnosis.-- Other Specified diagnosis, Please specify the diagnosis.-- Other - I will add my own diagnosis-- Dismiss - Not applicable / Not valid-- Dismiss - Clinically unable to determine / Unknown-- Assign to another provider QUERY RESPONSE: The patient has the known or suspected diagnosis after study (ruled in). Query created by: Dion Mauro on 01/15/2023 6:06 AM at 0931 PATIENT NAME: MATHEW CASTILLO noteG.[id number] for patient [id number]:31:59 2023-01-11 17:08:00 [id number] [facility] [place] [address] PATIENT NAME: MATHEW CASTILLO ADMIT DATE: 01/06/23ACCOUN T NO: [id number] ROOM NO: [facility] AGE: 62 REPORT TYPE: PROGRESS NOTE SEX: M ADMITTING PHYSICIAN:Salinas Alba MD ATTENDING PHYSICIAN:Salinas Alba MD DATE: 01/10/2023 SUBJECTIVE: The patient examined, chart reviewed, events of last 24 hoursnoted. The patient clinically is doing fairly well, resting in bed. Denies anynew complaints. Remains afebrile. Still complains of some dysuria even thoughhe has indwelling Black catheter in place. No further hematuria noted. Remainsafebrile. CURRENT MEDICATIONS: Include benztropine, tamsulosin, haloperidol, Zosyn IV,Tylenol p.r.n., docusate sodium p.r.n., hydrocodone bitartrate p.r.n.,hydralazine p.r.n. , morphine sulfate p.r.n., and ondansetron p.r.n. PHYSICAL EXAMINATION:GENERAL: The patient is resting in bed. He is awake and alert. Does not appear to be toxic. Does not appear to be in any acute distress.VITAL SIGNS: Temperature maximum in last 24 hours is 37.0 degrees Celsius, blood pressure is 106/66, respirations are 17 per minute, and pulse is 86 perminute. The patient's weight is around 71 kg.HEENT: Head is atraumatic and normocephalic. Pupils are equal and reacting tolight and accommodation bilaterally. Extraocular movements are intact.Oropharynx is clear. Oral hygiene is fair.NECK: Supple. JVD is absent. No carotid bruit, thyromegaly, or cervicallymphadenopathy. There is fair air entry bilaterally.CARDIOVASCULAR: S1, S2 audible. No murmur, gallop, S3 or S4 appreciated.ABDOMEN: Soft and full, nontender. No hepatosplenomegaly. No renal angletenderness noted. Mild suprapubic tenderness noted. Bowel sounds arenormoactive.EXTREMITIES: The patient has 3-wa y Black catheter in place and has very fainthematuria at the present time.EXTREMITIES: Both calves are soft. No calf tenderness. No pedal edema.Peripheral pulses are faintly palpable. LABORATORY DATA: No new laboratory studies available to review for today. Blood cultures x2 done on 01/08/2023 are negative so fa r at 24 hours of incubation. The patient's one out of two blood cultures done on 01/04/2023 had show n growth of Enterococcus faecalis while the other blood culture was negative after 5 days of incubation. ASSESSMENT AND PLAN: The patient wit h multiple comorbidities was initiallyadmitted through Emergency Room with hematuria. The patient had undergoneUroLift procedure, and subsequently, after he went home, he started to havefrank hematuria and he was admitted through Emergency Room to [facility] facility [facility], and from there, he was transferred to [facility] ED. The patient PATIENT NAME: NEREIDA CASTILLO was evaluated by Urology Service. He was placed on broad-spectrum IVantibiotics. His urine culture has shown growt h of Pseudomonas aeruginosa and 1out of 2 blood culture has shown growth of Enterococcus faecalis. TheEnterococcus faecalis growing in 1 blood culture, likely could be eithercontaminant or financial services representative of transient bacteremia. Clinically is doingfairly well. His urine cultur e has shown growth of Pseudomonas aeruginosa. Fornow, we will continue him on the present treatment, and once he is ready to bedischarged home, we will switch him to oral ciprofloxacin. Discussed with thepatient's nursing staff and with MARLENA Cheng. Dictated By: Skip Jaffe MD Date Dictated: 01/11/2023 17:08:17Date Transcribed: 01/11/2023 18:52:55HA/Nicole #: [id number] ID: [id number] Authenticated and Edited by Skip Jaffe MD On 01/22/23 5:19:12 AM at 0520 PATIENT NAME: MATHEW CASTILLO [id number]:52:00G.[id number] a ble for patient [id number]:21:34 2023-01-10 21:43:00 [id number]:43:00 [facility] ([facility])Internal Medicine Prog. NoteREPORT#:[id number] REPORT STATUS: SignedREPORT INITIALIZATION DATE:01/10/23 TIME: 2142 PATIENT: MATHEW CASTILLO UNIT #: [id number]#: [id number] [address] AGE: 62 SEX: M ATTEND: Salinas Alba I [facility] AUTHOR: Sofia Cheng NPREPT SERVICE DT/TIME: 01/10/232142* ALL edits or amendments must be made on th e electronic/computer document * SubjectiveChief complaint:HematuriaHPI:62-year-old male with las t medical history of, BPH, s/p bladder lift yesterday by Dr. Jones transferred from [place] for urology evaluation secondary tohematuria after bladder irrigation failed. pt was seen and evaluated by Dr. 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 Last admitted to LTAC[facility] on 10/16/22 with urinary retention. Abnormal labs: WBC 16.7, lcti c acid-2.9, ua with trace leukocyte estrace and wbc>50CT abd/pelvis 1. Prostatomegaly. Decompressed bladder with a Black in place.2. No hydronephrosis. No enhancing renal masses.3. Cholelithiasis and mildly distended gallbladder.4. Moderate hiatal hernia. Review of SystemsAdditional notes:Constitutional: Denies: chills, fever. ENT: Denies: earache, nasal congestion, sore throat. Respiratory: Denies: hemoptysis, parox nocturnal dyspnea, pleurisy, pleuritic pain, pneumonia, SOB, wheezing. Cardiovascular: Denies: chest pain, palpitations . GI: Denies: abdominal pain, nausea, vomiting. : Reports: hematuria. Denies: flank pain, frequency. Musculoskeletal: Arthritis: Denies: left upper, left lower, right upper, right lower . Neuro: Denies: change in LOC, confusion, dizziness, focal weakness, gait problem, headache, lightheaded, numbness, seizure, slurre d speech, spinning sensation, syncope, unable to speak, vision change. Psych: Denies: agitation, anxiety, auditory hallucination, change in menta l status, confusion, delusional, depression, homicidal ideation, hostile, insomnia, stress, suicidal ideation, visual hallucination. Objective GeneralVS/I O:Vital Signs Date Temp Pulse Resp B/P B/P Mean Pulse Ox FiO2 01/09-10/ 6 36.7-37.0 68-92 14-17 107-134/66-79 79.7-97.5 96-98 Last Documented: Result Date Time Pulse Ox 96 01/11 1920 B/P 107/66 01/11 1920 B/P Mean 79. 7 01/11 1920 O2 Delivery Room air 01/11 1920 Temp 37.0 01/11 1920 Pulse 80 01/11 1920 Resp 14 01/11 1920 24 hour I O ending at 0700: 01/10 070 0 01/09 1900 Intake Total Output Total 950 Balanc e -950 Output, Urine 950 PATIENT WEIGHT: Weight (lb): Weight (oz): Weight (kg): 70.909 Medications:Active Meds + DC'd Last 24 HrsBenztropine Mesylate (COGENTIN) 1 MG DAILY PO Haloperidol (HALDOL) 10 MG BID PO Tamsulosin HCl (Flomax 0.4 mg) 0.4 MG 0600,1800 PO Acetaminophe n (TYLENOL) 650 MG Q4H PRN PRN PO Docusate Sodium (COLACE) 100 MG BID PRN PRN PO Hydralazine HCl (APRESOLINE) 10 MG Q6H PRN PRN IV Hydrocodone Bitart/Acetaminophen (NORCO 7.5/325 TABLET) 1 TA B Q6H PRN PRN PO (DC) Morphine Sulfate (morphine SULFATE) 4 MG Q6H PRN PRN IV (DC) Ondansetron HC l (ZOFRAN) 4 MG Q4H PRN PRN IV Piperacillin Sod/Tazobactam Sod (ZOSYN 3.375GM) 3.375 GM Q8H IV Sodium Chloride (SODIUM CHLORIDE 0.9% 100 ML) 100 MLSodium Chloride (SODIUM CHLORIDE 0.9%) 1,000 ML .[id number] IV (DC) Sodium Chloride (SODIU M CHLORIDE 0.9%) 1,000 ML BOLUS IV Diagnosis, Assessment PlanHospital course to date:General appearance: alert, awakeHead/Eyes: atraumatic, clear cornea, EOMI, normocephalic, normal conjunctiva/sclera, normal eyelids/periorb, PERRLANeck: non-tender, no bruit/NL carotids, no JVD, normal thyroid, supple/no meningismusCardiovascular: normal capillary refill, regular rate rhythmRespiratory: no distress, no tendernessAbdomen/GI: active bowel sounds, soft, non-tender, no guarding, no rebound, no distention, no mass/organomegaly, no pulsatile mass, no hernia, normal abdominalaorta Abdomen quadrants:LLQ normal bowel sounds, LUQ normal bowel sounds, RLQ normal bowel sounds, RU Q normal bowel soundsGenitourinary: urinary catheter, hematuriaExtremities: moves all, no edema-all extremities, normal capillary refill, normal range of motion, normal sensory, normal motor functionNeuro/SKILLS TRAINER: alert, oriented X 3Skin : dry, intact, no gross abnormalitiesPsychiatry: n o hallucinations, normal affect, normal judgment/insight, normal mood, not homicidal, no t suicidal Free Text DxA P NotesFree text DxA P notes:Assessment:62-year-old male with last medical history of, BPH, s/p bladder lift yesterday by Dr. Jones transferred from [place] for urology evaluation secondary tohematuria after bladder irrigation failed. pt was seen and evaluated by Dr. 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 Last admitted to LT[facility] on 10/16/22 with urinary retention.Abnormal labs: WBC 16.7, lctic acid-2.9, ua with trace leukocyte estrace and wbc>50CT abd/pelvis:1. Prostatomegaly. Decompressed bladder with a Black in place.2. No hydronephrosis. No enhancing renal masses.3. Cholelithiasis and mildly distended gallbladder.4. Moderate hiatal hernia. 1. Hematuria s/p bladder lift2. Leukocytosis3. sepsis/UTI LAB REPORTS ANAEROBIC BOTTLE: GRAM POSITIVE COCCI IN PAIRS AND CHAINS, aerobic bottle pending.4. Cholelithiasis and mildly distended gallbladder.5. HX OF BPH, Hypertension , Schizophrenia Plan of care:Admit patient for further evaluation and treatmentUrology consultation in placeKeep Black with CBI Ceftriaxone 2 g dailyID consultationFollow-up with blood culture and urine cultureI's and O'sReplace electrolytesRepeat labsFurther recommendation based on patient's clinical urhomv2901/06/2023Vital signs within normal limitsBlood culture shows Enterococcus speciesUrine culture grows gram-negative teodoro-identification and sensitivity pendingHematuria is improved.Wean CBI as tolerated per uroContinue IV antibiotics Zosyn per ID, ceftriaxone is discontinuedStarted on Cogentin, still on tamsulosin.Monitor for furthe r bleedingPain medications as neededFollow-up cultures, labs, continue medications and supportive care01/07/2023Vital signs are stableBlood culture grows Enterococcus faecalis, urine culture grows Pseudomonas aeruginosaContinue IV antibiotics Zosyn, tamsulosin p.o., CogentinUro continues to follow the patient. Stop CBI, cleared for discharge wit h FoleyDiscontinue telemetry monitoringFoley careFall precaution, follow-up labs, continue medications and present care01/08/2023 Vital signs are stableUro cleared the patient for discharge tomorrow with Black catheterContinue I V antibiotic Zosyn per IDDischarge planning: Home when medically clearedFollow-up labs, cultures, continue medications and present care01/09/2023atient remained stableHematuria i s resolvedFor follow-up with uro as outpatient, cleared for discharge with Black.Consultants evaluations notedStill on IV antibiotic Zosyn, tamsulosin p.o.Fall precaution, pain medications as neededContinue medications and present careOctober 2022:Hematuria had resolvedFoley to bedside drainageSeen and evaluated by urologyContinues IV antibioticsContinue tamsulosinFall precautionContinue with current medicationsPlan is to discharge patient home in a.m. and follow-up with urology outpatient at 0024 at 0814 RPT #:[id number] OF REPORTPRProgress [id number]:43:00G.[id number] l able for patient [id number]:25:19 2023-01-10 20:39:00 [id number]:39:00 [facility] ([facility])Infectious Dis. Progress NoteREPORT#:[id number] REPORT STATUS: SignedREPORT INITIALIZATION DATE:01/10/23 TIME: 2038 PATIENT: MATHEW CASTILLO UNIT #: [id number]#: [id number] [facility] AGE: 62 SEX: M ATTEND: Salinas Alba AUTHOR: Skip Jaffe MDREPT SERVICE DT/TIME: 01/10/232038* ALL edits or amendments must be made on th e electronic/computer document * SubjectiveInterna l recordPatient examined, chart reviewed, events o f last 24 hours noted. See full dictated progress note for further details. ASSESSMENT AND PLAN: N o new development. Patient remains awake and alert . Denies any new complaints. Remains afebrile. Hematuria has resolved. Still has some dysuria and lower abdominal discomfort. Fever of up to 100.8 degree F. Status post UroLift surgery on January 03, [address] Reinaldo Jones. Recurrent fever and leukocytosis improved. Rule out urinary tract infection. Urinalysis however, shows no bacteriuria. Doubt any new nosocomial acquired infection. Continue empiric IV antibiotics for now. 1/2 blood cultures is showing growth of Enterococcus faecalis that is pansensitive. It might or might not represent a true pathogen. Transient enterococcal bacteremia from lower GI trach is a possibility. the 2nd blood culture is negative so far at 4 days of incubation. Urine culture is showing growth of 10,000-50,000 colony-forming units of the Gram-negative rods identified as Pseudomonas aeruginosa which is stover sensitive. Currently on IV Zosyn. Repeat blood cultures x2 done on January 08, 2023 are negative so far at 24 hourso f incubation.. In view of the enterococcal bacteremia and Pseudomonas aeruginosa the associatedurinary tract infection we will continue the patient on IV Zosyn. If repeat bloo d cultures remain negative then we will consider discharging him home on oral ciprofloxacin. at [facility] #:[id number] OF REPORTPRProgress [id number]:39:00G.[id number] l able for patient [id number]:44:38 2023-01-10 08:39:00 [id number] [facility] [address] [address] PATIENT NAME: MATHEW CASTILLO ADMIT DATE: 01/06/23ACCOUN T NO: [id number] ROOM NO: G.C146 AGE: 62 REPORT TYPE: PROGRESS NOT E SEX: M ADMITTING PHYSICIAN:Salinas Alba MD ATTENDING PHYSICIAN:Salinas Alba MD DATE: 01/09/2023 SUBJECTIVE: The patient was examined, chart reviewed, events of last 24 hoursnoted. Th e patient clinically is doing fairly well, remains awake and alert,resting comfortably in bed. Denies any new complaints. Remains afebrile. Nonausea, vomiting reported. No diarrhea reported. The patient denies any painin his abdomen or flanks, however, still complains of dysuria even though he hasa Black catheter in place. CURRENT MEDICATIONS: Include benztropine, tamsulosin, haloperidol, Zosyn IV,Tylenol p.r.n. , docusate sodium p.r.n., hydrocodone bitartrate p.r.n.,hydralazine p.r.n., morphine sulfate p.r.n., and ondansetron p.r.n. PHYSICAL EXAMINATION:GENERAL: The patient is resting in bed. He is awake and alert. Does not appear to b e toxic. Does not appear to be in any acute distress.VITAL SIGNS: Temperature maximum in las t 24 hours is 37.0 degrees Celsius, blood pressure is 106/66, respirations are 17 per minute, and pulse is 86 perminute. The patient's weight is around 71 kg.HEENT: Head is atraumatic and normocephalic. Pupils are equal and reacting tolight and accommodation bilaterally. Extraocular movements are intact.Oropharynx is clear. Oral hygiene is fair.NECK: Supple. JVD is absent. No carotid bruit, thyromegaly, or cervicallymphadenopathy. There is fair air entry bilaterally.CARDIOVASCULAR: S1, S2 audible. No murmur, gallop, S3 or S4 appreciated.ABDOMEN: Soft and full, nontender. No hepatosplenomegaly. No renal angletenderness noted. Mild suprapubic tenderness noted. Bowel sounds arenormoactive.EXTREMITIES: The patient has 3-wa y Black catheter in place and has very fainthematuria at the present time.EXTREMITIES: Both calves are soft. No calf tenderness. No pedal edema.Peripheral pulses are faintly palpable. LABORATORY DATA: WBC is stable around 7000 with hemoglobin of 10, hematocrit of 33, platelet count is 283. Serum sodium is 139, potassium 4.2, chloride 105, bicarbonate 27, glucose 106, BUN 12, creatinine 1.0, estimated GFR is 85,calcium is 8.6. One out of two blood cultures done on admission had showngrowth of Enterococcus faecalis while the other blood culture is negative after5 days of incubation. Repeat blood cultures x2 done yesterday are incubating,but negative so far. ASSESSMENT AND PLAN: The patient with multiple medical problems includinghistory of bladder outlet obstruction, previous history of hospitalization with PATIENT NAME: MATHEW CASTILLO acute urinary retention requiring indwelling Black catheter placement, he hadundergone UroLift surgery by Dr. Jones and subsequently was discharged;however, he was readmitted with ladan hematuria and he was started on bladderirrigation with 3-way Black catheter and his urine culture had shown growth ofPseudomonas aeruginosa. The patient's one out of two blood cultures done onadmission had shown Enterococcus faecalis while the other one is negative after5 days of incubation suggesting either contamination or transient enterococcalbacteremia. The patient had 2 repeat blood cultures done, which are so farshowing no growth. Clinically, he is making progress on the present IVantibiotics. For now, we will keep him on the same and once if his repeat bloodcultures remain negative and he clinically continues to show improvement, thenwe will consider switching him to oral ciprofloxacin on discharge. Discussedwith MARLENA Cheng and with the patient's nursing staff. Dictated By: Skip Jaffe MD Date Dictated: 01/10/2023 08:39:27Date Transcribed: 01/10/2023 09:42:11HA/SEN Uflpytm ID: [id number] Authenticated and Edited by Skip Jaffe MD On 01/22/23 5:19:04 AM at 0520 PATIENT NAME: MATHEW CASTILLO [id number]:42:00G.[id number] a ble for patient [id number]:21:54 2023-01-09 22:29:00 [id number]:29:00 [facility] ([facility])Internal Medicine Prog. NoteREPORT#:[id number] REPORT STATUS: SignedREPORT INITIALIZATION DATE:01/09/23 TIME: 2228 PATIENT: MATHEW CASTILLO UNIT #: [id number]#: [id number] [address] [birth year] AGE: 62 SEX: M ATTEND: Salinas Alba AUTHOR: Sofia Cheng NPREPT SERVICE DT/TIME: 01/09/232228* ALL edits or amendments must be made on th e electronic/computer document * SubjectiveChief complaint:HematuriaHPI:62-year-old male with las t medical history of, BPH, s/p bladder lift yesterday by Dr. Jones transferred from [place] for urology evaluation secondary tohematuria after bladder irrigation failed. pt was seen and evaluated by Dr. 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 Last admitted to LT[facility] on 10/16/22 with urinary retention. Abnormal labs: WBC 16.7, lcti c acid-2.9, ua with trace leukocyte estrace and wbc>50CT abd/pelvis 1. Prostatomegaly. Decompressed bladder with a Black in place.2. No hydronephrosis. No enhancing renal masses.3. Cholelithiasis and mildly distended gallbladder.4. Moderate hiatal hernia. Review of SystemsAdditional notes:Constitutional: Denies: chills, fever. ENT: Denies: earache, nasal congestion, sore throat. Respiratory: Denies: hemoptysis, parox nocturnal dyspnea, pleurisy, pleuritic pain, pneumonia, SOB, wheezing. Cardiovascular: Denies: chest pain, palpitations . GI: Denies: abdominal pain, nausea, vomiting. : Reports: hematuria. Denies: flank pain, frequency. Musculoskeletal: Arthritis: Denies: left upper, left lower, right upper, right lower . Neuro: Denies: change in LOC, confusion, dizziness, focal weakness, gait problem, headache, lightheaded, numbness, seizure, slurre d speech, spinning sensation, syncope, unable to speak, vision change. Psych: Denies: agitation, anxiety, auditory hallucination, change in menta l status, confusion, delusional, depression, homicidal ideation, hostile, insomnia, stress, suicidal ideation, visual hallucination. Objective GeneralVS/I O:Vital Signs Date Temp Pulse Resp B/P B/P Mean Pulse Ox FiO2 01/09 36.7-36.8 62-85 14-17 102-123/66-75 0.0-90.2 95-97 Last Documented: Result Date Time Pulse Ox 97 01/10 1904 B/P 115/66 01/10 1904 B/P Mean 82 01/10 1904 Temp 36.8 01/10 1904 Pulse 75 01/09 190 Resp 16 01/10 1904 O2 Delivery Room air 01/09 1606 PATIENT WEIGHT: Weight (lb): Weight (oz): Weight (kg): 70.909 Medications:Active Med s + DC'd Last 24 HrsBenztropine Mesylate (COGENTIN ) 1 MG DAILY PO Haloperidol (HALDOL) 10 MG BID PO Tamsulosin HCl (Flomax 0.4 mg) 0.4 MG 0600,1800 PO Acetaminophen (TYLENOL) 650 MG Q4H PRN PRN PO Docusate Sodium (COLACE) 100 MG BID PRN PRN PO Hydralazine HCl (APRESOLINE) 10 MG Q6H PRN PRN I V Hydrocodone Bitart/Acetaminophen (NORCO 7.5/325 TABLET) 1 TAB Q6H PRN PRN PO Morphine Sulfate (morphine SULFATE) 4 MG Q6H PRN PRN IV Ondansetron HCl (ZOFRAN) 4 MG Q4H PRN PRN IV Piperacillin Sod/Tazobactam Sod (ZOSYN 3.375GM) 3.375 GM Q8H IV Sodium Chloride (SODIUM CHLORID E 0.9% 100 ML) 100 MLSodium Chloride (SODIUM CHLORIDE 0.9%) 1,000 ML .[id number] IV Sodium Chloride (SODIUM CHLORIDE 0.9%) 1,000 ML BOLUS I V ResultsFindings/Data:Laboratory Tests 01/09/23548:[Embedded Image Not Available]Laboratory Tests 01/09 549 Chemistry Sodium (134 - 147 mEq/L) 139 Potassium (3.4 - 5.0 mEq/L) 4.2 Chloride (100 - 108 mEq/L) 105 Carbon Dioxide (2 1 - 33 mEq/l) 27 Anion Gap (0 - 20) 11 BUN (7 - 2 5 mg/dL) 12 Creatinine (0.6 - 1.3 mg/dL) 1.0 Glomerular Filtr Rate (80 - 90) 84.6 Glucose (77 - 141 mg/dL) 106 Calcium (8.0 - 10.5 mg/dL) 8.6 Laboratory Tests 01/09 549 Hematology WBC (4.5 - 11.0 x10 3/uL) 7.3 RBC (4.00 - 5.60 x10 6/uL) 3.69 L Hgb (12.5 - 16.9 g/dL) 10.4 L Hct (37.5 - 50.7 %) 32.8 L MCV (81.0 - 99.0 fL) 88.9 MCH (27.0 - 33.0 pg) 28.2 MCHC (33.0 - 37.0 g/dL) 31.7 L RDW (11.5 - 14.5 %) 13.7 Plt Count (150 - 400 x10 3/uL) 283 MPV (7.0 - 9.0 fL) 9.9 H Neut % (Auto) (56.0 - 77.0 %) 62.0 Lymph % (Auto) (14. 0 - 32.0 %) 20.8 [place] % (Auto) (4.8 - 9.0 %) 7.7 Eos % (Auto) (0.3 - 3.7 %) 8.1 H Baso % (Auto) (0.0 - 2.0 %) 0.7 Neut # (Auto) (2.0 - 7.6 x10 3/uL) 4.51 Lymph # (Auto) (1.0 - 3.8 x10 3/uL) 1.51 [place] # (Auto) (0.1 - 0.8 x10 3/uL) 0.56 Eos # (Auto) (0.0 - 0.2 x10 3/uL) 0.59 H Baso # (Auto) (0.0 - 0.2 x10 3/uL) 0.05 Abs Immat Gran (auto) (0.00 - 0.03 x10 3/uL) 0.05 H Immature Gran % (0.0 - 2.0 %) 0.7 Nucleated RBC % (0 - 0 %) 0.0 Nucleated RBCs # (Man) (0.0 - 0.1 x10 3/uL) 0.00 Diagnosis, Assessment PlanHospital course to date:General appearance: alert, awakeHead/Eyes: atraumatic, clear cornea, EOMI, normocephalic, normal conjunctiva/sclera, normal eyelids/periorb, PERRLANeck: non-tender, no bruit/NL carotids, no JVD, normal thyroid, supple/no meningismusCardiovascular: normal capillary refill, regular rate rhythmRespiratory : no distress, no tendernessAbdomen/GI: active bowel sounds, soft, non-tender, no guarding, no rebound, no distention, no mass/organomegaly, no pulsatile mass, no hernia, normal abdominalaorta Abdomen quadrants:LLQ normal bowel sounds, LUQ normal bowel sounds, RLQ normal bowel sounds, RU Q normal bowel soundsGenitourinary: urinary catheter, hematuriaExtremities: moves all, no edema-all extremities, normal capillary refill, normal range of motion, normal sensory, normal motor functionNeuro/SKILLS TRAINER: alert, oriented X 3Skin : dry, intact, no gross abnormalitiesPsychiatry: n o hallucinations, normal affect, normal judgment/insight, normal mood, not homicidal, no t suicidal Free Text DxA P NotesFree text DxA P notes:Assessment:62-year-old male with last medical history of, BPH, s/p bladder lift yesterday by Dr. Jones transferred from [place] for urology evaluation secondary tohematuria after bladder irrigation failed. pt was seen and evaluated by Dr. 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 Last admitted to [facility] on 10/16/22 with urinary retention.Abnormal labs: WBC 16.7, lctic acid-2.9, ua with trace leukocyte estrace and wbc>50CT abd/pelvis:1. Prostatomegaly. Decompressed bladder with a Black in place.2. No hydronephrosis. No enhancing renal masses.3. Cholelithiasis and mildly distended gallbladder.4. Moderate hiatal hernia. 1. Hematuria s/p bladder lift2. Leukocytosis3. sepsis/UTI LAB REPORTS ANAEROBIC BOTTLE: GRAM POSITIVE COCCI IN PAIRS AND CHAINS, aerobic bottle pending.4. Cholelithiasis and mildly distended gallbladder.5. HX OF BPH, Hypertension , Schizophrenia Plan of care:Admit patient for further evaluation and treatmentUrology consultation in placeKeep Black with CBI Ceftriaxone 2 g dailyID consultationFollow-up with blood culture and urine cultureI's and O'sReplace electrolytesRepeat labsFurther recommendation based on patient's clinical tmndqq7501/06/2023Vital signs within normal limitsBlood culture shows Enterococcus speciesUrine culture grows gram-negative teodoro-identification and sensitivity pendingHematuria is improved.Wean CBI as tolerated per uroContinue IV antibiotics Zosyn per ID, ceftriaxone is discontinuedStarted on Cogentin, still on tamsulosin.Monitor for furthe r bleedingPain medications as neededFollow-up cultures, labs, continue medications and supportive care01/07/2023Vital signs are stableBlood culture grows Enterococcus faecalis, urine culture grows Pseudomonas aeruginosaContinue IV antibiotics Zosyn, tamsulosin p.o., CogentinUro continues to follow the patient. Stop CBI, cleared for discharge wit h FoleyDiscontinue telemetry monitoringFoley careFall precaution, follow-up labs, continue medications and present care01/08/2023 Vital signs are stableUro cleared the patient for discharge tomorrow with Black catheterContinue I V antibiotic Zosyn per IDDischarge planning: Home when medically clearedFollow-up labs, cultures, continue medications and present care01/09/2023atient remained stableHematuria i s resolvedFor follow-up with uro as outpatient, cleared for discharge with Black.Consultants evaluations notedStill on IV antibiotic Zosyn, tamsulosin p.o.Fall precaution, pain medications as neededContinue medications and present care at 2359 at 1240 RPT #:[id number] OF REPORTPRProgress [id number]:29:00G.[id number] l able for patient [id number]:59:46 2023-01-09 19:20:00 [id number]:20:00 [facility] ([facility])Infectious Dis. Progress NoteREPORT#:[id number] REPORT STATUS: SignedREPORT INITIALIZATION DATE:01/09/23 TIME: 1919 PATIENT: MATHEW CASTILLO UNIT #: [id number]#: [id number] [address] [birth year] AGE: 62 SEX: M ATTEND: Salinas Alba I MDA AUTHOR: Skip Jaffe MDREPT SERVICE DT/TIME: 01/09/231919* ALL edits or amendments must be made on th e electronic/computer document * SubjectiveInterna l recordPatient examined, chart reviewed, events o f last 24 hours noted. See full dictated progress note for further details. ASSESSMENT AND PLAN: Patient clinically is doing about the same. Resting comfortably in bed. Has indwelling Black catheter in place. Hematuria has significantly improved however still has some small specks of the clotted blood in the Black catheter. Fever o f up to 100.8 degree F. Status post UroLift surger y on January 03, [address] Reinaldo Jones. Recurrent fever and leukocytosis improved. Rule out urinary tract infection. Urinalysis however, shows no bacteriuria. Doubt any new nosocomial acquired infection. Continue empiric IV antibiotics for now. 1/2 blood cultures is showing growth of Enterococcus faecalis that is pansensitive. It might or might not represent a true pathogen. Transient enterococcal bacteremia from lower GI trach is a possibility. the 2nd blood culture is negative so far at 4 days of incubation. Urine culture is showing growth of 10,000-50,000 colony-forming units of the Gram-negative rods identified as Pseudomonas aeruginosa which is stover sensitive. Currently on IV Zosyn. Repeat blood cultures x2 done on January 08, 2023 are negative so far. In view of the enterococcal bacteremia and Pseudomonas aeruginosa the associatedurinary tract infection we will continue the patient on IV Zosyn. If repeat blood cultures remain negative then we will consider discharging him home on oral ciprofloxacin. at 0432 RPT #:[id number] OF REPORTPRProgress [id number]:20:00G.[id number] l able for patient [id number]:33:11 2023-01-09 18:36:00 [id number] [facility] [place] [address] PATIENT NAME: MATHEW CASTILLO ADMIT DATE: 01/06/23ACCOUNT NO: [id number] ROOM NO: [facility] AGE: 62 REPORT TYPE: PROGRESS NOTE SEX: M ADMITTING PHYSICIAN:Salinas Alba MD ATTENDING PHYSICIAN:Salinas Alba MD DATE: 01/08/2023 SUBJECTIVE: The patient examined. Chart reviewed . Events of last 24 hoursnoted. The patient clinically is not much changed. He remains awake and alert,resting comfortably in bed. Denies any new complaints. Remains afebrile. Nonausea or vomiting reported. No diarrhea reported. Hematuria has significantlyimproved. Continues t o have indwelling catheter. CURRENT MEDICATIONS: Include benztropine, tamsulosin, haloperidol, Zosyn IV,Tylenol p.r.n., docusate sodium p.r.n., hydrocodone bitartrate p.r.n.,hydralazine p.r.n. , morphine sulfate p.r.n., and ondansetron p.r.n. PHYSICAL EXAMINATION:GENERAL: The patient is resting in bed. He is awake and alert. Does not appear to be toxic. Does not appear to be in any acute distress.VITAL SIGNS: Temperature maximum in last 24 hours is 37.0 degrees Celsius, blood pressure is 106/66, respirations are 17 per minute, and pulse is 86 perminute. The patient's weight is around 71 kg.HEENT: Head is atraumatic and normocephalic. Pupils are equal and reacting tolight and accommodation bilaterally. Extraocular movements are intact.Oropharynx is clear. Oral hygiene is fair.NECK: Supple. JVD is absent. No carotid bruit, thyromegaly, or cervicallymphadenopathy. There is fair air entry bilaterally.CARDIOVASCULAR: S1, S2 audible. No murmur, gallop, S3 or S4 appreciated.ABDOMEN: Soft and full, nontender. No hepatosplenomegaly. No renal angletenderness noted. Mild suprapubic tenderness noted. Bowel sounds arenormoactive.EXTREMITIES: The patient has 3-wa y Black catheter in place and has very fainthematuria at the present time.EXTREMITIES: Both calves are soft. No calf tenderness. No pedal edema.Peripheral pulses are faintly palpable. LABORATORY DATA: WBC today is stable around 7000 with hemoglobin of 10,hematocrit of 32, platelet count is 257,000. Serum sodium is 139, potassium4.4, chloride 105, bicarbonate 28, glucose 91, BUN 9, creatinine 0.8, estimatedGFR is 99. Calcium is 8.7. The urine culture had shown growth of Pseudomonasaeruginosa. His 1 out of 2 blood cultures done on admission had shownEnterococcus faecalis. The other blood culture so far is negative at 4 days ofincubation. Two repeat blood cultures are in progress. ASSESSMENT AND PLAN: The patient with multiple comorbidities, was initiallyadmitted through emergency room with ladan hematuria. The patient recently hadUroLift procedure done and subsequently, he started to have hematuria and was PATIENT NAME: MATHEW CASTILLO admitted to [place], and from there, [facility]. The patient was on admission, started on broad-spectrumIV antibiotics and he had prior stover cultures done. The patient's 1 out of 2blood culture has shown growth of Enterococcus faecalis, which in this setting,likely could represent either contamination or transient bacteremia. Thepatient's second blood culture from the same set so far is showing no growth at4 days of incubation. His urine culture, however, has show n growth ofPseudomonas aeruginosa. Currently, he i s on IV Zosyn and repeat blood culturesare in progress. If the repeat blood cultures remain negative, then we willconsider switching him to oral ciprofloxacin for discharge. Discussed with thepatient's nursing staff. Dictated By: Skip Jaffe MD Date Dictated: 01/09/2023 18:36:08Date Transcribed: 01/09/2023 20:19:12/[facility] [place]zuefl ID: [id number] Authenticated and Edited by Skip Jaffe MD On 01/22/23 5:18:55 AM at 0520 PATIENT NAME: MATHEW CASTILLO [id number]:19:00G.[id number] a ble for patient [id number]:21:54 2023-01-09 11:30:00 [id number]:30:00 [facility] ([facility])Urology Progress NoteREPORT#:[id number] REPORT STATUS: SignedREPOR T INITIALIZATION DATE:01/09/23 TIME: 113 PATIENT: MATHEW CASTILLO UNIT #: [id number]#: [id number] [address] AGE: 62 SEX: M ATTEND: Salinas Alba I MDABRADEN AUTHOR: Dave Jones MDREPT SERVICE DT/TIME: 3 1130* ALL edits or amendments must be made on th e electronic/computer document * SubjectiveHPI:Mathew Castillo is a 62 yo M history of hypertension, schizophrenia, BPH urinary retention who follows is status post UroLift 01/03/2023. Objective Physical ExamGenitourinary: Genitourinary: catheter in situ Diagnosis, Assessment PlanFree Text A P:62 y/o male s/p urolift - hematuria resolved - discharge with black and f/u as planned in clini c at 1131 RPT #:[id number] OF REPORTPRProgress [id number]:30:00G.[id number] l able for patient [id number]:32:06 2023-01-08 21:19:00 [id number]:19:00 [facility] ([facility])Internal Medicine Prog. NoteREPORT#:[id number] REPORT STATUS: SignedREPORT INITIALIZATION DATE:01/08/23 TIME: 2118 PATIENT: MATHEW CASTILLO UNIT #: [id number]#: [id number] [address] [birth year] AGE: 62 SEX: M ATTEND: Salinas Alba I MDA AUTHOR: Sofia Cheng NPREPT SERVICE DT/TIME: 01/08/232118* ALL edits or amendments must be made on th e electronic/computer document * SubjectiveChief complaint:HematuriaHPI:62-year-old male with las t medical history of, BPH, s/p bladder lift yesterday by Dr. Jones transferred from [place] for urology evaluation secondary tohematuria after bladder irrigation failed. pt was seen and evaluated by Dr. 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 Last admitted to [facility] on 10/16/22 with urinary retention. Abnormal labs: WBC 16.7, lcti c acid-2.9, ua with trace leukocyte estrace and wbc>50CT abd/pelvis 1. Prostatomegaly. Decompressed bladder with a Black in place.2. No hydronephrosis. No enhancing renal masses.3. Cholelithiasis and mildly distended gallbladder.4. Moderate hiatal hernia. Review of SystemsAdditional notes:Constitutional: Denies: chills, fever. ENT: Denies: earache, nasal congestion, sore throat. Respiratory: Denies: hemoptysis, parox nocturnal dyspnea, pleurisy, pleuritic pain, pneumonia, SOB, wheezing. Cardiovascular: Denies: chest pain, palpitations . GI: Denies: abdominal pain, nausea, vomiting. : Reports: hematuria. Denies: flank pain, frequency. Musculoskeletal: Arthritis: Denies: left upper, left lower, right upper, right lower . Neuro: Denies: change in LOC, confusion, dizziness, focal weakness, gait problem, headache, lightheaded, numbness, seizure, slurre d speech, spinning sensation, syncope, unable to speak, vision change. Psych: Denies: agitation, anxiety, auditory hallucination, change in menta l status, confusion, delusional, depression, homicidal ideation, hostile, insomnia, stress, suicidal ideation, visual hallucination. Objective GeneralVS/I O:Vital Signs Date Temp Pulse Resp B/P B/P Mean Pulse Ox FiO2 01/08 36.6-37.1 68-79 14-17 116-134/72-79 87.6-95.2 96-98 Last Documented: Result Date Time Pulse Ox 96 01/08 1918 B/P 116/75 01/08 1918 B/P Mean 88.5 01/08 1918 O2 Delivery Room air 01/08 1918 Temp 37.1 01/08 1918 Pulse 79 01/08 1918 Resp 1 7 01/08 1918 24 hour I O ending at 0700: 01/08 070 0 01/07 1900 Intake Total 550.00 Output Total Balance 550.00 Intake, IV 550.00 PATIENT WEIGHT : Weight (lb): Weight (oz): Weight (kg): 70.909 Medications:Active Meds + DC'd Last 24 HrsBenztropine Mesylate (COGENTIN) 1 MG DAILY PO Haloperidol (HALDOL) 10 MG BID PO Tamsulosin HCl (Flomax 0.4 mg) 0.4 MG 0600,1800 PO Acetaminophe n (TYLENOL) 650 MG Q4H PRN PRN PO Docusate Sodium (COLACE) 100 MG BID PRN PRN PO Hydralazine HCl (APRESOLINE) 10 MG Q6H PRN PRN IV Hydrocodone Bitart/Acetaminophen (NORCO 7.5/325 TABLET) 1 TA B Q6H PRN PRN PO Morphine Sulfate (morphine SULFATE) 4 MG Q6H PRN PRN IV Ondansetron HCl (ZOFRAN) 4 MG Q4H PRN PRN IV Piperacillin Sod/Tazobactam Sod (ZOSYN 3.375GM) 3.375 GM Q8H IV Sodium Chloride (SODIUM CHLORIDE 0.9% 100 ML) 100 MLSodium Chloride (SODIUM CHLORIDE 0.9%) 1,000 ML .[id number] IV Sodium Chloride (SODIUM CHLORIDE 0.9%) 1,000 ML BOLUS IV ResultsFindings/Data:Laboratory Tests 01/08/23324:[Embedded Image Not Available]Laboratory Tests 01/08 325 Chemistry Sodium (134 - 147 mEq/L) 139 Potassium (3.4 - 5.0 mEq/L) 4.4 Chloride (100 - 108 mEq/L) 105 Carbon Dioxide (2 1 - 33 mEq/l) 28 Anion Gap (0 - 20) 11 BUN (7 - 25 mg/dL) 9 Creatinine (0.6 - 1.3 mg/dL) 0.8 Glomerular Filtr Rate (80 - 90) 99.4 H Glucose (77 - 141 mg/dL) 91 Calcium (8.0 - 10.5 mg/dL) 8.7 Laboratory Tests 01/08 325 Hematology WBC (4.5 - 11.0 x10 3/uL) 6.5 RBC (4.00 - 5.60 x10 6/uL) 3.55 L Hgb (12.5 - 16.9 g/dL) 10.1 L Hct (37.5 - 50.7 %) 31.7 L MCV (81.0 - 99.0 fL) 89.3 MCH (27.0 - 33.0 pg) 28.5 MCHC (33.0 - 37.0 g/dL ) 31.9 L RDW (11.5 - 14.5 %) 13.6 Plt Count (150 - 400 x10 3/uL) 257 MPV (7.0 - 9.0 fL) 10.2 H Neut % (Auto) (56.0 - 77.0 %) 59.5 Lymph % (Auto) (14.0 - 32.0 %) 22.3 [place] % (Auto) (4.8 - 9.0 %) 6.9 Eos % (Auto) (0.3 - 3.7 %) 9.9 H Baso % (Auto) (0.0 - 2.0 %) 0.9 Neut # (Auto) (2.0 - 7. 6 x10 3/uL) 3.89 Lymph # (Auto) (1.0 - 3.8 x10 3/uL) 1.46 [place] # (Auto) (0.1 - 0.8 x10 3/uL) 0.45 Eos # (Auto) (0.0 - 0.2 x10 3/uL) 0.65 H Baso # (Auto) (0.0 - 0.2 x10 3/uL) 0.06 Abs Immat Gran (auto) (0.00 - 0.03 x10 3/uL) 0.03 Immature Gran % (0.0 - 2.0 %) 0.5 Nucleated RBC % (0 - 0 %) 0.0 Nucleated RBCs # (Man) (0.0 - 0.1 x10 3/uL) 0.00 Diagnosis, Assessment PlanHospita l course to date:General appearance: alert, awakeHead/Eyes: atraumatic, clear cornea, EOMI, normocephalic, normal conjunctiva/sclera, normal eyelids/periorb, PERRLANeck: non-tender, no bruit/NL carotids, no JVD, normal thyroid, supple/no meningismusCardiovascular: normal capillary refill, regular rate rhythmRespiratory : no distress, no tendernessAbdomen/GI: active bowel sounds, soft, non-tender, no guarding, no rebound, no distention, no mass/organomegaly, no pulsatile mass, no hernia, normal abdominalaorta Abdomen quadrants:LLQ normal bowel sounds, LUQ normal bowel sounds, RLQ normal bowel sounds, RU Q normal bowel soundsGenitourinary: urinary catheter, hematuriaExtremities: moves all, no edema-all extremities, normal capillary refill, normal range of motion, normal sensory, normal motor functionNeuro/SKILLS TRAINER: alert, oriented X 3Skin : dry, intact, no gross abnormalitiesPsychiatry: n o hallucinations, normal affect, normal judgment/insight, normal mood, not homicidal, no t suicidal Free Text DxA P NotesFree text DxA P notes:Assessment:62-year-old male with last medical history of, BPH, s/p bladder lift yesterday by Dr. Jones transferred from [place] for urology evaluation secondary tohematuria after bladder irrigation failed. pt was seen and evaluated by Dr. 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 Last admitted to [facility] on 10/16/22 with urinary retention.Abnormal labs: WBC 16.7, lctic acid-2.9, ua with trace leukocyte estrace and wbc>50CT abd/pelvis:1. Prostatomegaly. Decompressed bladder with a Black in place.2. No hydronephrosis. No enhancing renal masses.3. Cholelithiasis and mildly distended gallbladder.4. Moderate hiatal hernia. 1. Hematuria s/p bladder lift2. Leukocytosis3. sepsis/UTI LAB REPORTS ANAEROBIC BOTTLE: GRAM POSITIVE COCCI IN PAIRS AND CHAINS, aerobic bottle pending.4. Cholelithiasis and mildly distended gallbladder.5. HX OF BPH, Hypertension , Schizophrenia Plan of care:Admit patient for further evaluation and treatmentUrology consultation in placeKeep Black with CBI Ceftriaxone 2 g dailyID consultationFollow-up with blood culture and urine cultureI's and O'sReplace electrolytesRepeat labsFurther recommendation based on patient's clinical kpenon8201/06/2023Vital signs within normal limitsBlood culture shows Enterococcus speciesUrine culture grows gram-negative teodoro-identification and sensitivity pendingHematuria is improved.Wean CBI as tolerated per uroContinue IV antibiotics Zosyn per ID, ceftriaxone is discontinuedStarted on Cogentin, still on tamsulosin.Monitor for furthe r bleedingPain medications as neededFollow-up cultures, labs, continue medications and supportive care01/07/2023Vital signs are stableBlood culture grows Enterococcus faecalis, urine culture grows Pseudomonas aeruginosaContinue IV antibiotics Zosyn, tamsulosin p.o., CogentinUro continues to follow the patient. Stop CBI, cleared for discharge wit h FoleyDiscontinue telemetry monitoringFoley careFall precaution, follow-up labs, continue medications and present care01/08/2023 Vital signs are stableUro cleared the patient for discharge tomorrow with Black catheterContinue I V antibiotic Zosyn per IDDischarge planning: Home when medically clearedFollow-up labs, cultures, continue medications and present care at 2359 at 1240 RPT #:[id number] OF REPORTPRProgress [id number]:19:00G.[id number] l able for patient tyhrTWMFNHKZLOQDFL3472-25-31J79:59:46 2023-01-08 18:59:00 [id number]:59:00 [facility] ([facility])Infectious Dis. Progress NoteREPORT#:[id number] REPORT STATUS: SignedREPORT INITIALIZATION DATE:01/08/23 TIME: 1858 PATIENT: MATHEW CASTILLO UNIT #: [id number]#: [id number] [address] AGE: 62 SEX: M ATTEND: Salinas Alba I MDADM AUTHOR: Skip Jaffe MDREPT SERVICE DT/TIME: 01/08/231858* ALL edits or amendments must be made on electronic/computer document * SubjectiveInterna l recordPatient examined, chart reviewed, events o f last 24 hours noted. See full dictated progress note for further details. ASSESSMENT AND PLAN: N o significant change in general condition. Patient is resting comfortably in bed. Denies any new complaints. Still has some suprapubic area tenderness. Fever of up to 100.8 degree F. Statu s post UroLift surgery on January 03, [address] José Miguel Jones. Recurrent fever and leukocytosis improved. Rule out urinary tract infection. Urinalysis however, shows no bacteriuria. Rule out DVT and low-grade PE. Doubt any new nosocomial acquired infection. Continue empiric IV antibiotics for now. 1/2 blood cultures is showing growth of Enterococcus faecalis that is pansensitive. It might or might not represent a true pathogen. Transient enterococcal bacteremia from lower GI trach is a possibility. the 2nd blood culture is negative so far at 4 days of incubation. Urine culture is showing growth of 10,000-50,000 colony-forming units of the Gram-negative rods identified as Pseudomonas aeruginosa which is stover sensitive. Currently on IV Zosyn. In view of the enterococcal bacteremia and Pseudomonas aeruginosa the associatedurinary tract infection we will continue the patient on IV Zosyn. If repeat blood cultures remain negative then we will consider discharging him home on oral ciprofloxacin. Electronically Mel d by Skip Jaffe MD on 01/09/23 at 0321 RPT #:[id number] OF REPORTPRProgress [id number]:59:00G.[id number] l able for patient [id number]:21:51 2023-01-08 18:22:00 [id number] [facility] [place] [address] PATIENT NAME: MATHEW CASTILLO ADMIT DATE: 01/06/23ACCOUN T NO: [id number] ROOM NO: [facility] AGE: 62 REPORT TYPE: PROGRESS NOT E SEX: M ADMITTING PHYSICIAN:Salinas Alba MD ATTENDING PHYSICIAN:Salinas Alba MD DATE: 01/07/2023 SUBJECTIVE: The patient examined. Chart reviewed. Events of last 24 hoursnoted. Th e patient clinically is not much changed. He remains awake and alert,resting comfortably in bed. Denies any new complaints. Continues to hav e Foleycatheter in place with irrigation and his urine appears to be completely cleanwithout any further hematuria. Remains afebrile. No nausea o r vomitingreported. No diarrhea reported. CURRENT MEDICATIONS: Include benztropine, tamsulosin, haloperidol, Zosyn IV,Tylenol p.r.n., docusate sodium p.r.n., hydrocodone bitartrate p.r.n.,hydralazine p.r.n., morphine sulfate p.r.n., and ondansetron p.r.n. PHYSICAL EXAMINATION:GENERAL: The patient is resting in bed. He is awake and alert. Does not appear to b e toxic. Does not appear to be in any acute distress.VITAL SIGNS: Temperature maximum in las t 24 hours is 37.0 degrees Celsius, blood pressure is 106/66, respirations are 17 per minute, and pulse is 86 perminute. The patient's weight is around 71 kg.HEENT: Head is atraumatic and normocephalic. Pupils are equal and reacting tolight and accommodation bilaterally. Extraocular movements are intact.Oropharynx is clear. Oral hygiene is fair.NECK: Supple. JVD is absent. No carotid bruit, thyromegaly, or cervicallymphadenopathy. There is fair air entry bilaterally.CARDIOVASCULAR: S1, S2 audible. No murmur, gallop, S3 or S4 appreciated.ABDOMEN: Soft and full, nontender. No hepatosplenomegaly. No renal angletenderness noted. Mild suprapubic tenderness noted. Bowel sounds arenormoactive.EXTREMITIES: The patient has 3-wa y Black catheter in place and has very fainthematuria at the present time.EXTREMITIES: Both calves are soft. No calf tenderness. No pedal edema.Peripheral pulses are faintly palpable. the hematuria has resolved. LABORATORY DATA: WBC is stable around 6000 with hemoglobin of 9, hematocrit of29, platelet count is 205,000 . Serum sodium is 138, potassium 4.0, agtqotrc006, bicarbonate 26, glucose 91, BUN 14, creatinine 0.8, estimated GFR is 99.calcium is 7.8, blood culture 1 out of 2 has shown growth of Enterococcusfaecalis, which is pansensitive. Another blood culture so far is negative at 72hours of incubation. Urine culture has shown growth of Pseudomonas gqondhgazk29,000 to 50,000 colony forming units. Currently, the patient is on Zosyn IV. ASSESSMENT AND PLAN: The patient with multiple comorbidities, was initiallyadmitted through emergency room with ladan hematuria. He recently had UroLift PATIENT NAME: ANNAMATHEW SINCERE procedure done and subsequently was discharged on the same day. However, on theday o f admission, the patient developed ladan hematuria and came to emergencyroom. The patient was started on IV antibiotics and he was evaluated b y urologyservice and received bladder irrigation through a 3-way catheter. Clinically,he has started to show improvement in his condition and his hematuria hasresolved. His one blood culture has shown growth of Enterococcus faecalis. Thepatient did have fever and leukocytosis on admission and urine culture has showngrowth of Pseudomonas aeruginosa. Currently, he is on IV Zosyn and bothorganisms are covered by the same antibiotic. We will keep him on the same tocomplete a 10-day course of treatment. Discussed with the patient's nursingstaff.Dictated By: Elizabeth Kelly Dictated: 01/08/2023 18:22:31Date Transcribed: 01/08/2023 19:55:35HA/Trina #: [id number] ID: [id number] Authenticated and Edited by Skip Jaffe MD On 01/22/23 5:18:46 AM at 0520 PATIENT NAME: MATHEW CASTILLO [id number]:55:00G.[id number] a ble for patient [id number]:21:54 2023-01-08 17:58:00 [id number]:58:00 [facility] ([facility])Urology Progress NoteREPORT#:[id number] REPORT STATUS: SignedREPOR T INITIALIZATION DATE:01/08/23 TIME: 1757 PATIENT: MATHEW CASTILLO UNIT #: [id number]# : [id number] [facility] AGE : 62 SEX: M ATTEND: Salinas Alba I MDADM AUTHOR: Dave Jones MDREPT SERVICE DT/TIME: 01/08/231757* ALL edits or amendments must be made on the electronic/computer document * SubjectiveHPI:Mathew Castillo is a 62 yo M history of hypertension, schizophrenia, BPH urinary retention who follows is status post UroLift 01/03/2023. Objective GeneralVS/I O:Last Documented: Result Date Time Pulse Ox 98 01/09 1656 B/P 134/76 01/09 1656 B/P Mean 95.2 01/09 1656 O2 Delivery Room air 01/09 1656 Temp 36.7 01/09 1656 Pulse 77 01/09 1656 Resp 14 01/08 165 6 24 hour I O ending at 0700: 01/08 0700 01/07 190 0 Intake Total 550.00 Output Total Balance 550.00 Intake, IV 550.00 PATIENT WEIGHT: Weight (lb): Weight (oz): Weight (kg): 70.909 Physical ExamGeneral appearance: alert, awake, orientedGenitourinary: Genitourinary: catheter i n situ ResultsFindings/Data:Laboratory Tests: 4 0325 Chemistry Sodium (134 - 147 mEq/L) 139 Potassium (3.4 - 5.0 mEq/L) 4.4 Chloride (100 - 108 mEq/L) 105 Carbon Dioxide (21 - 33 mEq/l) 28 Anion Gap (0 - 20) 11 BUN (7 - 25 mg/dL) 9 Creatinine (0.6 - 1.3 mg/dL) 0.8 Glomerular Filt r Rate (80 - 90) 99.4 H Glucose (77 - 141 mg/dL) 9 1 Calcium (8.0 - 10.5 mg/dL) 8.7 Hematology WBC (4.5 - 11.0 x10 3/uL) 6.5 RBC (4.00 - 5.60 x10 6/uL) 3.55 L Hgb (12.5 - 16.9 g/dL) 10.1 L Hct (37.5 - 50.7 %) 31.7 L MCV (81.0 - 99.0 fL) 89.3 MCH (27.0 - 33.0 pg) 28.5 MCHC (33.0 - 37.0 g/dL) 31.9 L RDW (11.5 - 14.5 %) 13.6 Plt Count (150 - 400 x10 3/uL) 257 MPV (7.0 - 9.0 fL) 10. 2 H Neut % (Auto) (56.0 - 77.0 %) 59.5 Lymph % (Auto) (14.0 - 32.0 %) 22.3 [place] % (Auto) (4.8 - 9.0 %) 6.9 Eos % (Auto) (0.3 - 3.7 %) 9.9 H Baso % (Auto) (0.0 - 2.0 %) 0.9 Neut # (Auto) (2.0 - 7.6 x10 3/uL) 3.89 Lymph # (Auto) (1.0 - 3.8 x10 3/uL) 1.46 [place] # (Auto) (0.1 - 0.8 x10 3/uL) 0.45 Eos # (Auto) (0.0 - 0.2 x10 3/uL) 0.65 H Baso # (Auto) (0.0 - 0.2 x10 3/uL) 0.06 Abs Yumiko t Gran (auto) (0.00 - 0.03 x10 3/uL) 0.03 Immature Gran % (0.0 - 2.0 %) 0.5 Nucleated RBC % (0 - 0 %) 0.0 Nucleated RBCs # (Man) (0.0 - 0.1 x10 3/uL) 0.00 Diagnosis, Assessment PlanFree Text A P:62 y/o male s/p urolift - hematuria is improve d - discharge with black tomorrow at 175 9 RPT #:[id number] OF REPORTPRProgress [id number]:58:00G.[id number] l able for patient pwrnCLCTXQYKUFEKNT1708-86-46F48:00:52 2023-01-08 02:42:00 [id number]:42:00 [facility] ([facility])Infectious Dis. Progress NoteREPORT#:[id number] REPORT STATUS: SignedREPORT INITIALIZATION DATE:01/08/23 TIME: 241 PATIENT: MATHEW CASTILLO UNIT #: [id number]#: [id number] [address] [birth year] AGE: 62 SEX: M ATTEND: Salinas Alba AUTHOR: Skip Jaffe MDREPT SERVICE DT/TIME: 01/07/232129* ALL edits or amendments must be made on th e electronic/computer document * SubjectiveInterna l recordPatient examined, chart reviewed, events o f last 24 hours noted. See full dictated progress note for further details. ASSESSMENT AND PLAN: N o new development. Patient is resting comfortably in bed. No new issues reported. Continues to be afebrile today. Has clear urine with resolution of hematuria. Fever of up to 100.8 degree F. Status post UroLift surgery on January [address] Reinaldo Jones. Recurrent fever and leukocytosis improved. Rule out urinary tract infection. Urinalysis however, shows no bacteriuria. Rule out DVT and low-grade PE. Doub t any new nosocomial acquired infection. Continue empiric IV antibiotics for now. 1/2 blood cultures is showing growth of Enterococcus faecalis that is pansensitive. It might or might not represent a true pathogen. Transient enterococcal bacteremia from lower GI trach is a possibility. the 2nd blood culture is negative s o far at 72 hours of incubation. Urine culture is showing growth of 10,000-50,000 colony-forming units of the Gram-negative rods identified as Pseudomonas aeruginosa which is stover sensitive. Currently on IV Zosyn. In view of the enterococcal bacteremia and Pseudomonas aeruginosa the associatedurinary tract infection we will continue the patient on IV Zosyn. at 0353 RPT #:[id number] OF REPORTPRProgress [id number]:42:00G.[id number] l able for patient [id number]:54:17 2023-01-07 21:05:00 [id number]:05:00 [facility] Medicine Prog. NoteREPORT#:[id number] REPORT STATUS: SignedREPORT INITIALIZATION DATE:01/07/23 TIME: 2104 PATIENT: MATHEW CASTILLO UNIT #: [id number]#: [id number] [address] AGE: 62 SEX: M ATTEND: Salinas Alba I [facility] AUTHOR: Sofia Cheng NPREPT SERVICE DT/TIME: 01/07/23 633* ALL edits or amendments must be made on th e electronic/computer document * SubjectiveChief complaint:HematuriaHPI:62-year-old male with las t medical history of, BPH, s/p bladder lift yesterday by Dr. Jones transferred from [place] for urology evaluation secondary tohematuria after bladder irrigation failed. pt was seen and evaluated by Dr. 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 Last admitted to LTAC[facility] on 10/16/22 with urinary retention. Abnormal labs: WBC 16.7, lcti c acid-2.9, ua with trace leukocyte estrace and wbc>50CT abd/pelvis 1. Prostatomegaly. Decompressed bladder with a Black in place.2. No hydronephrosis. No enhancing renal masses.3. Cholelithiasis and mildly distended gallbladder.4. Moderate hiatal hernia. Review of SystemsAdditional notes:Constitutional: Denies: chills, fever. ENT: Denies: earache, nasal congestion, sore throat. Respiratory: Denies: hemoptysis, parox nocturnal dyspnea, pleurisy, pleuritic pain, pneumonia, SOB, wheezing. Cardiovascular: Denies: chest pain, palpitations . GI: Denies: abdominal pain, nausea, vomiting. : Reports: hematuria. Denies: flank pain, frequency. Musculoskeletal: Arthritis: Denies: left upper, left lower, right upper, right lower . Neuro: Denies: change in LOC, confusion, dizziness, focal weakness, gait problem, headache, lightheaded, numbness, seizure, slurre d speech, spinning sensation, syncope, unable to speak, vision change. Psych: Denies: agitation, anxiety, auditory hallucination, change in menta l status, confusion, delusional, depression, homicidal ideation, hostile, insomnia, stress, suicidal ideation, visual hallucination. Objective GeneralVS/I O:Vital Signs Date Temp Pulse Resp B/P B/P Mean Pulse Ox FiO2 01/06-10/0 3 36.5-37.0 66-76 14-17 99-139/63-76 74.7-94.8 94-99 Last Documented: Result Date Time Pulse Ox 97 01/07 2055 B/P 139/72 01/07 2055 B/P Mean 94.2 01/07 2055 O2 Delivery Room air 01/07 2055 Temp 37.0 01/07 2055 Pulse 70 01/07 2055 Resp 1 4 01/07 2055 24 hour I O ending at 0700: 01/07 070 0 01/06 1900 Intake Total 300.00 700.00 Output Total 2500 Balance -2200.00 700.00 Intake, IV 300.00 700.00 Output, Other 2500 PATIENT WEIGHT: Weight (lb): Weight (oz): Weight (kg): 70.909 Medications:Active Meds + DC'd Last 24 HrsBenztropine Mesylate (COGENTIN) 1 MG DAILY PO Haloperidol (HALDOL) 10 MG BID PO Tamsulosin HCl (Flomax 0.4 mg) 0.4 MG 0600,1800 PO Acetaminophe n (TYLENOL) 650 MG Q4H PRN PRN PO Docusate Sodium (COLACE) 100 MG BID PRN PRN PO Hydralazine HCl (APRESOLINE) 10 MG Q6H PRN PRN IV Hydrocodone Bitart/Acetaminophen (NORCO 7.5/325 TABLET) 1 TA B Q6H PRN PRN PO Morphine Sulfate (morphine SULFATE) 4 MG Q6H PRN PRN IV Ondansetron HCl (ZOFRAN) 4 MG Q4H PRN PRN IV Piperacillin Sod/Tazobactam Sod (ZOSYN 3.375GM) 3.375 GM Q8H IV Sodium Chloride (SODIUM CHLORIDE 0.9% 100 ML) 100 MLSodium Chloride (SODIUM CHLORIDE 0.9%) 1,000 ML .[id number] IV Sodium Chloride (SODIUM CHLORIDE 0.9%) 1,000 ML BOLUS IV ResultsFindings/Data:Laboratory Tests 01/07/23356:[Embedded Image Not Available] 01/07/23355:[Embedded Image Not Available]Laboratory Tests 01/07 357 Chemistry Sodium (134 - 147 mEq/L) 138 Potassium (3.4 - 5.0 mEq/L) 4.0 Chloride (100 - 108 mEq/L) 104 Carbon Dioxide (2 1 - 33 mEq/l) 26 Anion Gap (0 - 20) 12 BUN (7 - 2 5 mg/dL) 14 Creatinine (0.6 - 1.3 mg/dL) 0.8 Glomerular Filtr Rate (80 - 90) 99.4 H Glucose (77 - 141 mg/dL) 91 Calcium (8.0 - 10.5 mg/dL) 7.8 L Laboratory Tests 01/07 0356 Hematology WB C (4.5 - 11.0 x10 3/uL) 5.9 RBC (4.00 - 5.60 x10 6/uL) 3.23 L Hgb (12.5 - 16.9 g/dL) 9.2 L Hct (37.5 - 50.7 %) 29.2 L MCV (81.0 - 99.0 fL) 90. 4 MCH (27.0 - 33.0 pg) 28.5 MCHC (33.0 - 37.0 g/dL ) 31.5 L RDW (11.5 - 14.5 %) 13.8 Plt Count (150 - 400 x10 3/uL) 205 MPV (7.0 - 9.0 fL) 10.8 H Francia t % (Auto) (56.0 - 77.0 %) 60.1 Lymph % (Auto) (14.0 - 32.0 %) 21.2 [place] % (Auto) (4.8 - 9.0 %) 7.2 Eos % (Auto) (0.3 - 3.7 %) 10.4 H Baso % (Auto) (0.0 - 2.0 %) 0.8 Neut # (Auto) (2.0 - 7. 6 x10 3/uL) 3.56 Lymph # (Auto) (1.0 - 3.8 x10 3/uL) 1.26 [place] # (Auto) (0.1 - 0.8 x10 3/uL) 0.43 Eos # (Auto) (0.0 - 0.2 x10 3/uL) 0.62 H Baso # (Auto) (0.0 - 0.2 x10 3/uL) 0.05 Abs Yumiko t Gran (auto) (0.00 - 0.03 x10 3/uL) 0.02 Add Manual Diff NO Immature Gran % (0.0 - 2.0 %) 0.3 Nucleated RBC % (0 - 0 %) 0.0 Nucleated RBCs # (Man) (0.0 - 0.1 x10 3/uL) 0.00 Diagnosis, Assessment PlanHospital course to date:General appearance: alert, awakeHead/Eyes: atraumatic, clear cornea, EOMI, normocephalic, normal conjunctiva/sclera, normal eyelids/periorb, PERRLANeck: non-tender, no bruit/NL carotids, no JVD, normal thyroid, supple/no meningismusCardiovascular: normal capillary refill, regular rate rhythmRespiratory: no distress, no tendernessAbdomen/GI: active bowel sounds, soft, non-tender, no guarding, no rebound, no distention, no mass/organomegaly, no pulsatile mass, no hernia, normal abdominalaorta Abdomen quadrants:LLQ normal bowel sounds, LUQ normal bowel sounds, RLQ normal bowel sounds, RU Q normal bowel soundsGenitourinary: urinary catheter, hematuriaExtremities: moves all, no edema-all extremities, normal capillary refill, normal range of motion, normal sensory, normal motor functionNeuro/SKILLS TRAINER: alert, oriented X 3Skin : dry, intact, no gross abnormalitiesPsychiatry: n o hallucinations, normal affect, normal judgment/insight, normal mood, not homicidal, no t suicidal Free Text DxA P NotesFree text DxA P notes:Assessment:62-year-old male with last medical history of, BPH, s/p bladder lift yesterday by Dr. Jones transferred from [place] for urology evaluation secondary tohematuria after bladder irrigation failed. pt was seen and evaluated by Dr. 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 Last admitted to [facility]AC[facility] on 10/16/22 with urinary retention.Abnormal labs: WBC 16.7, lctic acid-2.9, ua with trace leukocyte estrace and wbc>50CT abd/pelvis:1. Prostatomegaly. Decompressed bladder with a Black in place.2. No hydronephrosis. No enhancing renal masses.3. Cholelithiasis and mildly distended gallbladder.4. Moderate hiatal hernia. 1. Hematuria s/p bladder lift2. Leukocytosis3. sepsis/UTI LAB REPORTS ANAEROBIC BOTTLE: GRAM POSITIVE COCCI IN PAIRS AND CHAINS, aerobic bottle pending.4. Cholelithiasis and mildly distended gallbladder.5. HX OF BPH, Hypertension , Schizophrenia Plan of care:Admit patient for further evaluation and treatmentUrology consultation in placeKeep Black with CBI Ceftriaxone 2 g dailyID consultationFollow-up with blood culture and urine cultureI's and O'sReplace electrolytesRepeat labsFurther recommendation based on patient's clinical qutept4601/06/2023Vital signs within normal limitsBlood culture shows Enterococcus speciesUrine culture grows gram-negative teodoro-identification and sensitivity pendingHematuria is improved.Wean CBI as tolerated per uroContinue IV antibiotics Zosyn per ID, ceftriaxone is discontinuedStarted on Cogentin, still on tamsulosin.Monitor for furthe r bleedingPain medications as neededFollow-up cultures, labs, continue medications and supportive care01/07/2023Vital signs are stableBlood culture grows Enterococcus faecalis, urine culture grows Pseudomonas aeruginosaContinue IV antibiotics Zosyn, tamsulosin p.o., CogentinUro continues to follow the patient. Stop CBI, cleared for discharge wit h FoleyDiscontinue telemetry monitoringFoley careFall precaution, follow-up labs, continue medications and present care at 2222 at 0742 RPT #:[id number] OF REPORTPRProgress pgph0549-99-76G14:05:00G.[id number] l able for patient jbigMRKUTKHVMSOYAJ4923-72-99L13:22:45 2023-01-07 16:17:00 [id number]:17:00 [facility] ([facility])Urology Progress NoteREPORT#:[id number] REPORT STATUS: SignedREPOR T INITIALIZATION DATE:01/07/23 TIME: 1617 PATIENT: MATHEW CASTILLO UNIT #: [id number]# : [id number] [facility] AGE : 62 SEX: M ATTEND: Salinas Alba MDADM AUTHOR: Dave Jones MDREPT SERVICE DT/TIME: 01/07/23 1617* ALL edits or amendments must be made on the electronic/computer document * SubjectiveHPI:Mathew Castillo is a 62 yo M history of hypertension, schizophrenia, BPH urinary retention who follows with Dr. Jones and is status post UroLift 01/03/2023. Patient reports persistent worsening gross hematuria since the procedure. Feels otherwise well had a fever Tmax 100.8 otherwise normotensive. He is currently receiving Zosyn. Currently has three-way catheter in place that is draining a mix of clear urine mixed with old bloody urine. Objective Physical ExamGenitourinary: Genitourinary: cont. bladder irrig. run. Diagnosis, Assessment PlanFree Text A P:62 y/o male s/p urolift - hematuria is improved - stop cbi - discharge with black tomorrow at 1617 RPT #:[id number] OF REPORTPRProgress [id number]:17:00G.[id number] l able for patient udxzEQSUKPEEEGPUKM3980-08-11W47:18:01 2023-01-07 05:20:00 [id number]:[id number] [place] [address] PATIENT NAME: MATHEW CASTILLO ADMIT DATE: 01/06/23ACCOUN T NO: [id number] ROOM NO: [facility] AGE: 62 REPORT TYPE: PROGRESS NOT E SEX: M ADMITTING PHYSICIAN:Salinas Alba ATTENDING PHYSICIAN:Salinas Alba MD DATE: 01/06/2023 SUBJECTIVE: The patient examined, chart reviewed, events of last 24 hoursnoted. Th e patient clinically is not much changed, currentl y restingcomfortably in bed. Denies any new complaints. Remains afebrile. No nausea orvomiting reported. No diarrhea reported. The patient continues to have a 3-wayFoley catheter in place. No further hematuria noted and his urine appears to beclearing out. MEDICATIONS: Include benztropine mesylate, tamsulosin, haloperidol, Zosyn IV,Tylenol p.r.n., docusate sodium p.r.n., hydrocodone bitartrate p.r.n.,hydralazine p.r.n., morphine sulfate p.r.n., and ondansetron p.r.n. PHYSICAL EXAMINATION:GENERAL: The patient is resting in bed. He is awake and alert. Does not appear to b e toxic. Does not appear to be in any acute distress.VITAL SIGNS: Temperature maximum in las t 24 hours is 37.0 degrees Celsius, blood pressure is 106/66, respirations are 17 per minute, and pulse is 86 perminute. The patient's weight is around 71 kg.HEENT: Head is atraumatic and normocephalic. Pupils are equal and reacting tolight and accommodation bilaterally. Extraocular movements are intact.Oropharynx is clear. Oral hygiene is fair.NECK: Supple. JVD is absent. No carotid bruit, thyromegaly, or cervicallymphadenopathy. There is fair air entry bilaterally.CARDIOVASCULAR: S1, S2 audible. No murmur, gallop, S3 or S4 appreciated.ABDOMEN: Soft and full, nontender. No hepatosplenomegaly. No renal angletenderness noted. Mild suprapubic tenderness noted. Bowel sounds arenormoactive.EXTREMITIES: The patient has 3-wa y Black catheter in place and has very fainthematuria at the present time.EXTREMITIES: Both calves are soft. No calf tenderness. No pedal edema.Peripheral pulses are faintly palpable. LABORATORY DATA: WBC has decreased to around 10,000 today with hemoglobin of10, hematocrit of 30, platelet count is 187. Serum sodium is 139, potassium4.0, chloride 103, bicarbonate 29, glucose 106, BUN 17, creatinine 0.9,estimated GFR is 96, calcium is 8.2. One out of two blood cultures done on09/ has show n growth of Enterococcus species, identificationsusceptibility is pending,=. The second blood culture, however, is showing nogrowth at 48 hours of incubation. Urine cultur e is showing 10,000 to 50,000colony forming units of gram-negative rods, identification and susceptibility ispending. Urology progress note appreciated. PATIENT NAME: MATHEW CASTILLO ASSESSMENT AND PLAN: The patient with multiple comorbidities including historyof schizophrenia and benign prostatic hypertrophy had undergone UroLiftprocedure on 01/03/2023 and subsequently was discharged to home; however, nextday, he started to have hematuria and was readmitted .The patient also had atemperature spike and had blood cultures done and 1 out of 2 blood culture hasshown growt h of Enterococcus species while the other blood culture is negativeand his urine culture is showing growth of gram-negative rods, while hisurinalysis did not show any bacteria. The patient had leukocytosis, which seemsto have improved with IV antibiotics, and in this setting, it will beappropriate to keep him on current antibiotic regimen. We will follow up onthe identification of Enterococcus species. We will alter antibiotic regimenbased on the final culture results. Discussed with the patient's nursing staff. Dictated By: Skip Jaffe MD Date Dictated: 01/07/2023 05:20:31Date Transcribed: 01/07/2023 05:56:47 ESTRADA/Nicole #: [id number] ID: [id number] Authenticated and Edited by Skip Jaffe MD On 01/22/23 5:18:20 AM at 0520 PATIENT NAME: MATHEW CASTILLO [id number]:56:00G.[id number] a ble for patient [id number]:21:33 2023-01-06 21:39:00 [id number]:39:00 [facility] ([facility])Internal Medicine Prog. NoteREPORT#:[id number] REPORT STATUS: SignedREPORT INITIALIZATION DATE:01/06/23 TIME: 2138 PATIENT: MATHEW CASTILLO UNIT #: [id number]#: [id number] ROOM/BED: [id number]: 59 AGE: 62 SEX: M ATTEND: Salinas Alba I [facility] AUTHOR: Sofia Cheng NPREPT SERVICE DT/TIME: 01/06/232138* ALL edits or amendments must be made on th e electronic/computer document * SubjectiveChief complaint:HematuriaHPI:62-year-old male with las t medical history of, BPH, s/p bladder lift yesterday by Dr. Jones transferred from [place] for urology evaluation secondary tohematuria after bladder irrigation failed. pt was seen and evaluated by Dr. 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 Last admitted to LT[facility] on 10/16/22 with urinary retention. Abnormal labs: WBC 16.7, lcti c acid-2.9, ua with trace leukocyte estrace and wbc>50CT abd/pelvis 1. Prostatomegaly. Decompressed bladder with a Black in place.2. No hydronephrosis. No enhancing renal masses.3. Cholelithiasis and mildly distended gallbladder.4. Moderate hiatal hernia. Review of SystemsAdditional notes:Constitutional:Denies: chills, fever. ENT:Denies: earache, nasal congestion, sore throat. Respiratory:Denies: hemoptysis, parox nocturnal dyspnea, pleurisy, pleuritic pain, pneumonia, SOB, wheezing. Cardiovascular:Denies: chest pain, palpitations. GI:Denies: abdominal pain, nausea, vomiting. :Reports: hematuria. Denies: flank pain, frequency. Musculoskeletal: Arthritis: Denies: left upper, left lower, right upper, right lower . Neuro:Denies: change in LOC, confusion, dizziness, focal weakness, gait problem, headache, lightheaded, numbness, seizure, slurre d speech, spinning sensation, syncope, unable to speak, vision change. Psych:Denies: agitation, anxiety, auditory hallucination, change in menta l status, confusion, delusional, depression, homicidal ideation, hostile, insomnia, stress, suicidal ideation, visual hallucination. Objective GeneralVS/I O:Vital Signs Date Temp Pulse Resp B/P B/P Mean Pulse Ox FiO2 01/05-10/ 2 36.7-37.0 71-96 14-17 100-122/66-71 77.5-86.4 96-98 Last Documented: Result Date Time Pulse Ox 98 01/06 2110 B/P 122/68 01/06 2110 B/P Mean 85. 9 01/06 2110 Temp 36.8 01/06 2110 Pulse 76 01/06 2110 Resp 17 01/06 2110 O2 Delivery Room air 01/06 1540 24 hour I O ending at 0700: 01/06 070 0 01/05 1900 Intake Total 400.00 Output Total 100 0 Balance -600.00 Intake, IV 400.00 Output, Urine 1000 PATIENT WEIGHT: Weight (lb): Weight (oz): Weight (kg): 70.909 Medications:Active Meds + DC'd Last 24 HrsBenztropine Mesylate (COGENTIN) 1 MG DAILY PO Haloperidol (HALDOL) 10 MG BID PO Ceftriaxone Sodium (ROCEPHIN) 2,000 MG Q24H IV (DC) Sodium Chloride (SODIUM CHLORIDE) 20 MLTamsulosin HCl (Flomax 0.4 mg) 0.4 MG 0600,180 0 PO Acetaminophen (TYLENOL) 650 MG Q4H PRN PRN PO Docusate Sodium (COLACE) 100 MG BID PRN PRN PO Hydralazine HCl (APRESOLINE) 10 MG Q6H PRN PRN I V Hydrocodone Bitart/Acetaminophen (NORCO 7.5/325 TABLET) 1 TAB Q6H PRN PRN PO Morphine Sulfate (morphine SULFATE) 4 MG Q6H PRN PRN IV Ondansetron HCl (ZOFRAN) 4 MG Q4H PRN PRN IV Piperacillin Sod/Tazobactam Sod (ZOSYN 3.375GM) 3.375 GM Q8H IV Sodium Chloride (SODIUM CHLORIDE 0.9% 100 ML) 100 MLSodium Chloride (SODIUM CHLORIDE 0.9%) 1,000 ML .[id number] IV Sodium Chloride (SODIUM CHLORIDE 0.9%) 1,000 ML BOLUS I V ResultsFindings/Data:Laboratory Tests 01/06/23 0517:[Embedded Image Not Available]Laboratory Tests 01/06 517 Chemistry Sodium (134 - 147 mEq/L) 139 Potassium (3.4 - 5.0 mEq/L) 4.0 Chloride (100 - 108 mEq/L) 103 Carbon Dioxide (21 - 33 mEq/l) 29 Anion Gap (0 - 20) 11 BUN (7 - 25 mg/dL) 17 Creatinine (0.6 - 1.3 mg/dL) 0.9 Glomerular Filtr Rate (80 - 90) 96.0 H Glucose (77 - 141 mg/dL) 106 Calcium (8.0 - 10.5 mg/dL) 8.2 Laboratory Tests 01/06 517 Hematology WBC (4.5 - 11.0 x10 3/uL) 9.7 RBC (4.00 - 5.60 x10 6/uL) 3.36 L Hgb (12.5 - 16.9 g/dL) 9.7 L Hct (37.5 - 50.7 %) 30.1 L MCV (81.0 - 99.0 fL) 89.6 MCH (27.0 - 33.0 pg) 28.9 MCHC (33.0 - 37.0 g/dL) 32.2 L RDW (11.5 - 14.5 %) 14.2 Plt Count (150 - 400 x10 3/uL) 187 MPV (7.0 - 9.0 fL) 10. 9 H Neut % (Auto) (56.0 - 77.0 %) 76.7 Lymph % (Auto) (14.0 - 32.0 %) 11.8 L [place] % (Auto) (4.8 - 9.0 %) 7.5 Eos % (Auto) (0.3 - 3.7 %) 3.2 Baso % (Auto) (0.0 - 2.0 %) 0.4 Neut # (Auto) (2.0 - 7.6 x10 3/uL) 7.43 Lymph # (Auto) (1.0 - 3.8 x10 3/uL) 1.14 [place] # (Auto) (0.1 - 0.8 x10 3/uL) 0.73 Eos # (Auto) (0.0 - 0.2 x10 3/uL) 0.31 H Baso # (Auto) (0.0 - 0.2 x10 3/uL) 0.04 Abs Yumiko t Gran (auto) (0.00 - 0.03 x10 3/uL) 0.04 H Add Manual Diff NO Immature Gran % (0.0 - 2.0 %) 0.4 Nucleated RBC % (0 - 0 %) 0.0 Nucleated RBCs # (Man) (0.0 - 0.1 x10 3/uL) 0.00 Diagnosis, Assessment PlanHospital course to date:General appearance: alert, awakeHead/Eyes: atraumatic, clear cornea, EOMI, normocephalic, normal conjunctiva/sclera, normal eyelids/periorb, PERRLANeck: non-tender, no bruit/NL carotids, no JVD, normal thyroid, supple/no meningismusCardiovascular: normal capillary refill, regular rate rhythmRespiratory: no distress, no tendernessAbdomen/GI: active bowel sounds, soft, non-tender, no guarding, no rebound, no distention, no mass/organomegaly, no pulsatile mass, no hernia, normal abdominalaorta Abdomen quadrants:LLQ normal bowel sounds, LUQ normal bowel sounds, RLQ normal bowel sounds, RU Q normal bowel soundsGenitourinary: urinary catheter, hematuriaExtremities: moves all, no edema-all extremities, normal capillary refill, normal range of motion, normal sensory, normal motor functionNeuro/SKILLS TRAINER: alert, oriented X 3Skin : dry, intact, no gross abnormalitiesPsychiatry: n o hallucinations, normal affect, normal judgment/insight, normal mood, not homicidal, no t suicidal Free Text DxA P NotesFree text DxA P notes:Assessment:62-year-old male with last medical history of, BPH, s/p bladder lift yesterday by Dr. Jones transferred from [place] for urology evaluation secondary tohematuria after bladder irrigation failed. pt was seen and evaluated by Dr. 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 Last admitted to LTAC[facility] on 10/16/22 with urinary retention.Abnormal labs: WBC 16.7, lctic acid-2.9, ua with trace leukocyte estrace and wbc>50CT abd/pelvis:1. Prostatomegaly. Decompressed bladder with a Black in place.2. No hydronephrosis. No enhancing renal masses.3. Cholelithiasis and mildly distended gallbladder.4. Moderate hiatal hernia. 1. Hematuria s/p bladder lift2. Leukocytosis3. sepsis/UTI LAB REPORTS ANAEROBIC BOTTLE: GRAM POSITIVE COCCI IN PAIRS AND CHAINS, aerobic bottle pending.4. Cholelithiasis and mildly distended gallbladder.5. HX OF BPH, Hypertension , Schizophrenia Plan of care:Admit patient for further evaluation and treatmentUrology consultation in placeKeep Black with CBI Ceftriaxone 2 g dailyID consultationFollow-up with blood culture and urine cultureI's and O'sReplace electrolytesRepeat labsFurther recommendation based on patient's clinical soixfs6001/06/2023Vital signs within normal limitsBlood culture shows Enterococcus speciesUrine culture grows gram-negative teodoro-identification and sensitivity pendingHematuria is improved.Wean CBI as tolerated per uroContinue IV antibiotics Zosyn per ID, ceftriaxone is discontinuedStarted on Cogentin, still on tamsulosin.Monitor for furthe r bleedingPain medications as neededFollow-up cultures, labs, continue medications and supportive care at 0015 at 0740 RPT #:[id number] OF REPORTPRProgress [id number]:39:00G.[id number] l able for patient [id number]:16:29 2023-01-06 19:39:00 [id number]:39:00 [facility] ([facility])Urology Progress NoteREPORT#:[id number] REPORT STATUS: SignedREPOR T INITIALIZATION DATE:01/06/23 TIME: 1938 PATIENT: MATHEW CASTILLO UNIT #: [id number]# : [id number] [facility] AGE : 62 SEX: M ATTEND: Salinas Alba AUTHOR: Dave Jones MDREPT SERVICE DT/TIME: 01/06/231938* ALL edits or amendments must be made on the electronic/computer document * SubjectiveHPI:Mathew Castillo is a 62 yo M history of hypertension, schizophrenia, BPH urinary retention who follows with Dr. Jones and is status post UroLift 01/03/2023. Patient reports persistent worsening gross hematuria since the procedure. Feels otherwise well had a fever Tmax 100.8 otherwise normotensive. He is currently receiving Zosyn. Currently has three-way catheter in place that is draining a mix of clear urine mixed with old bloody urine. Objective GeneralVS/I O:Last Documented: Result Date Time Pulse Ox 97 01/06 1540 B/P 100/66 10/0 2 1540 B/P Mean 77.5 01/06 1540 O2 Delivery Room air 01/06 154 Temp 36.7 01/06 1540 Pulse 71 01/06 1540 Resp 14 01/06 1540 24 hour I O endin g at 0700: 01/06 0700 01/05 1900 Intake Total 400.00 Output Total 1000 Balance -600.00 Intake, IV 400.00 Output, Urine 1000 PATIENT WEIGHT: Weight (lb): Weight (oz): Weight (kg): 70.909 Physical ExamGeneral appearance: alert, awake, orientedGenitourinary: Genitourinary: cont. bladder irrig. run. ResultsFindings/Data:Laboratory Tests: 01/06 051 7 Chemistry Sodium (134 - 147 mEq/L) 139 Potassium (3.4 - 5.0 mEq/L) 4.0 Chloride (100 - 108 mEq/L) 103 Carbon Dioxide (21 - 33 mEq/l) 29 Anion Gap (0 - 20) 11 BUN (7 - 25 mg/dL) 17 Creatinine (0.6 - 1.3 mg/dL) 0.9 Glomerular Filtr Rate (80 - 90) 96.0 H Glucose (77 - 141 mg/dL) 106 Calcium (8.0 - 10.5 mg/dL) 8.2 Hematology WBC (4.5 - 11. 0 x10 3/uL) 9.7 RBC (4.00 - 5.60 x10 6/uL) 3.36 L Hgb (12.5 - 16.9 g/dL) 9.7 L Hct (37.5 - 50.7 %) 30.1 L MCV (81.0 - 99.0 fL) 89.6 MCH (27.0 - 33. 0 pg) 28.9 MCHC (33.0 - 37.0 g/dL) 32.2 L RDW (11.5 - 14.5 %) 14.2 Plt Count (150 - 400 x10 3/uL) 187 MPV (7.0 - 9.0 fL) 10.9 H Neut % (Auto) (56.0 - 77.0 %) 76.7 Lymph % (Auto) (14.0 - 32.0 %) 11.8 L [place] % (Auto) (4.8 - 9.0 %) 7.5 Eos % (Auto) (0.3 - 3.7 %) 3.2 Baso % (Auto) (0. 0 - 2.0 %) 0.4 Neut # (Auto) (2.0 - 7.6 x10 3/uL) 7.43 Lymph # (Auto) (1.0 - 3.8 x10 3/uL) 1.14 [place] # (Auto) (0.1 - 0.8 x10 3/uL) 0.73 Eos # (Auto) (0.0 - 0.2 x10 3/uL) 0.31 H Baso # (Auto) (0.0 - 0.2 x10 3/uL) 0.04 Abs Immat Gran (auto) (0.00 - 0.03 x10 3/uL) 0.04 H Add Manual Diff NO Immature Gran % (0.0 - 2.0 %) 0.4 Nucleated RBC % (0 - 0 %) 0.0 Nucleated RBCs # (Man) (0.0 - 0.1 x10 3/uL) 0.00 Diagnosis, Assessment PlanFree Text A P:62 y/o male s/p urolift - hematuria is improved - wean cbi as tolerated at 194 1 RPT #:[id number] OF REPORTPRProgress [id number]:39:00G.[id number] l able for patient [id number]:41:57 2023-01-06 19:19:00 [id number]:19:00 [facility] ([facility])Infectious Dis. Progress NoteREPORT#:[id number] REPORT STATUS: SignedREPORT INITIALIZATION DATE:01/06/23 TIME: 1918 PATIENT: AMTHEW CASTILLO UNIT #: [id number]#: [id number] [address] AGE: 62 SEX: M ATTEND: Salinas Alba AUTHOR: Skip Jaffe MDREPT SERVICE DT/TIME: 01/06/231918* ALL edits or amendments must be made on th e electronic/computer document * SubjectiveInterna l recordPatient examined, chart reviewed, events o f last 24 hours noted. See full dictated progress note for further details. ASSESSMENT AND PLAN: N o significant change in general condition. Patient is resting comfortably in bed. No new issues reported. Continues to be afebrile today. Fever of up to 100.8 degree F. Status post UroLift surgery on January 03, [address] Reinaldo Jones. Recurrent fever and leukocytosis most secondary to noninfectious/ noninfectious causes . Rule out urinary tract infection. Urinalysis however, shows no bacteriuria. Rule out DVT and low-grade PE. Doubt any new nosocomial acquired infection. Continue empiric IV antibiotics for now. 1/2 blood cultures is showing growth of Enterococcus species. Identification susceptibility is pending. It might or might not represent a true pathogen. Transient enterococca l bacteremia from lower GI trach is a possibility. [place] [id number] colony-forming units of the Gram-negative rods. Identification and susceptibility is pending. Keep the patient on IV Zosyn. at 0411 RPT #:[id number] OF REPORTPRProgress [id number]:19:00G.[id number] katerine able for patient [id number]:11:25 2023-01-06 17:40:00 [id number]:[id number] [place], [place] [address] PATIENT NAME: MATHEW CASTILLO ADMIT DATE: 01/06/23ACCOUN T NO: [id number] ROOM NO: [facility] AGE: 62 REPORT TYPE: CONSULTATIO N REPORT SEX: M ADMITTING PHYSICIAN:Salinas Alba MD ATTENDING PHYSICIAN:Salinas Alba MD CONSULTATION DATE: 01/05/2023 INFECTIOUS DISEASE CONSULTATION The patient examined, chart reviewed, old records reviewed. Thank you, Dr. Michael, for asking me to evaluate Mr. Mathew Castillo. HISTORY OF PRESENT ILLNESS: Mr. Castillo is known to me from his recent hospitalization at [facility] in 10/2022. He is a 62-year-old male with a past medical history of schizophrenia, benign prostatic hypertrophy with recurrent urinary symptomatology, history of previous episode of urinary retention due to bladder neck obstruction requiring indwelling Black catheter placement and hospitalization in October of 2022. The patient lives in [place] and he had an outpatient prostate procedure done by Dr. Dave Jones with UroLift on Friday01/03/2023 and was discharged home on the same day. The patient went back to [place]. However, subsequently, he started to notice arpita k hematuria on Friday and had no other constitutional symptoms including fever or chills. The patient because of worsening hematuria decided to go to the hospital. He went to hospital in [place] and he was told to follow up with the urologist and he was transferred to the [facility]. The patient at present is hemodynamically stable and alert. He was evaluated by Dr. Crystal Alberts on Urology consultation. He was empirically placed on broad-spectrum IV antibiotics after getting appropriate cultures. Infectious diseases consultation is requested for evaluation of the patient for marked leukocytosis, possible sepsis , and for advice regarding further antibiotic treatment as necessary. REVIEW OF SYSTEMS: The patient denies any fever or chills. Denies any headache, dizziness or blurring of vision. Denie s any chest pain, cough, expectoration, or shortness of breath. Denies any nausea, vomiting or diarrhea. Denies any significant discomfort i n the suprapubic region; however, states that he still has significant dysuria. He does have a 3-way Black catheter in place, but states that whenever he has urge to pass urine, he feels dysuria, even though, his symptoms according to him has shown improvement since he was admitted. He did have vomiting x1 today, but denies any further nausea or vomiting. PAST MEDICAL HISTORY : Significant for schizophrenia of several decades duration. The patient is disabled because of that. History of hypertension, history of benign prostatic hypertrophy, history of previous hospitalizations inJuly of 2022 with urinary obstruction due to bladder neck obstruction. The patient had indwelling Black catheter placed, which he was discharged with. PATIENT NAME: MATHEW CASTILLO PAST SURGICAL HISTORY: The patient previously higgins d no surgical history. However, he has undergone UroLift procedure on 01/03/[address] Dave Jones as an outpatient. VACCINATION HISTORY: The patient has received 2 doses of COVID-19 vaccination. No further booster doses were given . ALLERGIES: THE PATIENT HAS NO KNOWN DRUG ALLERGIES. SOCIAL AND PERSONAL HISTORY: The patient is single. [place]. The patient has been a longtime smoker and continues to smoke. No history of IV drug use, alcohol use, or substance abuse. 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 At that time, he started to haveauditory hallucinations and was subsequently diagnosed with schizophrenia. CURRENT MEDICATIONS: Include benztropine mesylate, tamsulosin, haloperidol, Zosyn IV, Tylenol p.r.n., docusate sodium p.r.n., hydrocodone bitartrate p.r.n.,hydralazine p.r.n. , morphine sulfate p.r.n., ondansetron p.r.n., ceftriaxone IV. PHYSICAL EXAMINATION:GENERAL: Th e patient is resting in bed. He is awake and alert . Does not appearto be toxic. Does not appear to b e in any acute distress.VITAL SIGNS: Temperature maximum in last 24 hours is 38.2 degrees Celsius , blood pressure is 106/66, respirations are 17 pe r minute, and pulse is 86 per minute. The patient' s weight is around 71 kg.HEENT: Head is atraumatic and normocephalic. Pupils are equal and reacting to light and accommodation bilaterally. Extraocular movements are intact. Oropharynx is clear. Oral hygiene is fair.NECK: Supple. JVD i s absent. No carotid bruit, thyromegaly, or cervical lymphadenopathy. There is fair air entr y bilaterally.CARDIOVASCULAR: S1, S2 audible. No murmur, gallop, S3 or S4 appreciated.ABDOMEN: Soft and full, nontender. No hepatosplenomegaly. No renal angle tenderness noted. Mild suprapubic tenderness noted. Bowel sounds are normoactive.EXTREMITIES: The patient has 3-way Black catheter in place and has very faint hematuria at the present time.EXTREMITIES: Both calves are soft. No calf tenderness. No pedal edema. Peripheral pulses are faintly palpable. LABORATORY DATA: WBC on admission is 18,000 with hemoglobin of 11, hematocrit of 34, platelet count is 224. Serum sodium is 132, potassium 4.2 , chloride 99, bicarbonate 24, glucose 120, BUN 15 , creatinine 1.1, estimated GFR is 75, calcium is 8.6, phosphorus is 3.4, triglycerides 90, cholesterol is 178, magnesium is 1.69. High-density lipoprotein is 63.8 and low-density lipoproteinis 104. TSH is 2.37. Lactic acid on admission is 2.9. First repeat is 0.9 andsecond repeat is 1.1. Urinalysis done on admission showed cloudy urine with 2+ blood, negative nitrite, trace leukocyte esterase, more than 50 wbc's, more than50 rbc's, no bacteria, 4+ calciu m oxalate crystals, and 2+ yeast. CT of abdomen an d pelvis with contrast done on admission shows prostatomegaly, decompressed bladder with Black in place. No hydronephrosis, no enhancing renalmasses, cholelithiasis and a mildly distended gallbladder, moderate hiatal PATIENT NAME: MATHEW CASTILLO hernia. [place] admission, [place] [address]. The patient had 2 blood cultures done. Urine culture is incubating. ASSESSMENT: The patient with multiple comorbidities includin g history of benignprostatic hypertrophy with previous episode of urinary retention requiring indwelling Black catheter placement has undergon e an UroLift procedure on 01/03/2023, and subsequently was discharged on the same day; however, yesterday he started to have hematuria and was seen at a hospital in [facility] facility and is transferred to [facility] further Urology evaluation. 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 outcome analyst today, and he is empirically started on broad-spectrum IV antibiotics after getting appropriate cultures. His urinalysis does have markedpyuria without an y bacteriuria and his blood and urine cultures are still in progress. Currently, he is on broad-spectrum IV antibiotics and possibility of transient bacteremia in this setting cannot be excluded that could have led to this fever. The patient did have a procedure recently and part o f the leukocytosis likely could be secondary to that as well; however, since he is fragile and has indwelling Black catheter in place, it will be appropriate to keep him on broad-spectrum IV antibiotics while awaiting urine and blood cultureresults. SUGGEST:1. Continue IV Zosyn for now.2. Follow up blood and urine culture result.3. Agree with urology recommendations.4. The patient's COVID-19 vaccination is up to date.5. Further recommendations to follow depending on the clinical course of the patient. Thank you again for inviting me to participate i n the care of your patient. I will continue to follow along with you. The case was discussed with the patient's nursing staff. Dictated By: Skip Jaffe MD Date Dictated: 01/06/2023 17:40:46Date Transcribed: 01/06/2023 21:28:36HA/Concepcion #: [id number] ID: [id number] by Skip Jaffe MD On 01/22/2023 05:17:37 AM at 0517 PATIENT NAME: MATHEW CASTILLO :28:00G.H I [id number] for patient [id number]:18:03 2023-01-05 23:00:00 [id number]:00:00 [facility] ([facility])Infect Disease Consult NoteREPORT#:[id number] REPORT STATUS: SignedREPORT INITIALIZATION DATE:01/05/23 TIME: 2300 PATIENT: MATHEW CASTILLO UNIT #: [id number]#: [id number] [facility] AGE: 62 SEX: M ATTEND: Salinas Alba AUTHOR: kSip Jaffe MDREPT SERVICE DT/TIME: 01/05/23 2300* ALL edits or amendments must be made on th e electronic/computer document * History of Presen t IllnessHPI:Thank you for the consultation. Patient's current and old record reviewed. Order s initiated. See full dictated consultation report for further details. Patient is known to our service from his recent hospitalization at [facility] in October of 2022. ASSESSMENT AND PLAN: Fever of up to 100.8 degree F. Status post UroLift surgery on January 03, [address] Reinaldo Jones. Recurrent fever and leukocytosis most secondary to noninfectious/ noninfectious causes. Rule out urinary tract infection. Urinalysis however, shows no bacteriuria. Rule out DVT and low-grade PE. Doubt any new nosocomial acquired infection. Continue empiric IV antibiotics for now. Follow-up blood and urine culture result. Histor y - Adult longitudinalAllergies:Coded Allergies:No Known Allergies (10/16/22) at 0526 RPT #:[id number] OF REPORTYWUvipgpvvvmak1183-32-64W68:00:00G.PDOC 2 [id number] for patient [id number]:27:03 2023-01-05 13:05:00 [id number]:05:00 [facility] ([facility])Urology Consult NoteREPORT#:[id number] REPORT STATUS: SignedREPOR T INITIALIZATION DATE:01/05/23 TIME: 1305 PATIENT: MATHEW CASTILLO UNIT #: [id number]# : [id number] [address] [birth year] AGE : 62 SEX: M ATTEND: Salinas Alba I MDADM AUTHOR: Crystal Alberts MDREPT SERVICE DT/TIME: 01/05/23 1305* ALL edits or amendments must be made on the electronic/computer document * History of Present Illness HPIRequesting clinician: Elham Cheng for consult:Hematuria after uroliftChief complaint:HematuriaHPI:Mathew Castillo is a 62 yo M history of hypertension, schizophrenia, BPH urinary retention who follows with Dr. Jones and is status post UroLift 01/03/2023. Patient reports persistent worsening gross hematuria since the procedure. Feels otherwise well had a fever Tmax 100.8 otherwise normotensive. He is currently receiving Zosyn. Currently has three-way catheter in place that is draining a mix of clear urine mixed with old bloody urine. HistoryPast medical history:Reports: Hypertension, BPH, Schizophrenia. Additional surgical history:None reportedAdditional family history:NoncontributoryAlcohol use: Denies EtOH useDrug use: Denies recreational drugsSmoking status for patients 13 years old or older: Forme r SmokerDate last smoked: 10/16/22Allergies:Coded Allergies:No Known Allergies (10/16/22) Review o f Systems ROSConstitutional:Denies: chills, fatigue, fever, generalized weakness. :Reports : hematuria. Denies: dysuria, flank pain. All systems rev neg: except as marked ObjectiveVS/I O:Last Documented: Result Date Time Pulse Ox 93 01/05 111 B/P 110/72 01/05 111 B/P Mean 84.8 01/06 1112 Temp 98.1 01/06 1112 Pulse 88 01/052 Resp 18 01/06 1112 O2 Delivery Room air 01/05 0404 24 hour I O ending at 0700: 01/05 070 0 01/04 1900 Intake Total Output Total Balance Patient 70.909 kg Weight Weight Standing scale Measurement Method PATIENT WEIGHT: Weight (lb): Weight (oz): Weight (kg): 70.909 ResultsFindings/Data:Laboratory Tests: 01/05 01/05 01/05 01/05 0328 0328 0328 0200 Chemistry Sodium (134 - 147 mEq/L) 132 L Potassium (3.4 - 5.0 mEq/L) 4.2 Chloride (100 - 108 mEq/L) 99 L Carbon Dioxide (21 - 33 mEq/l) 24 Anion Gap (0 - 20) 14 BUN (7 - 25 mg/dL) 15 Creatinine (0.6 - 1.3 mg/dL) 1.1 Glomerular Filtr Rate (80 - 90) 75.4 L Glucose (77 - 141 mg/dL) 120 Hemoglobin A1c (4.8 - 6.0 %A1C) 5.1 Lactic Acid (0.4 - 1.9 mmol/L) 1.1 0.9 Calcium (8.0 - 10.5 mg/dL) 8.6 Phosphorus (2.5 - 4.9 MG/DL) 3.4 Magnesium (1.6 - 2.6 mg/dL) 1.69 Triglycerides (40 - 150 mg/dL) 9 0 Cholesterol (<200 mg/dL) 178 LDL Cholesterol Measurd (0 - 100 mg/dL) 104.0 H HDL Cholesterol (40 - 60 MG/DL) 63.8 H Cholesterol/HDL Ratio (3.43 - 4.97 RATIO) 2.79 L TSH (0.42 - 5.47 IU/mL) 2.37 Hematology WBC (4.5 - 11.0 x10 3/uL) 18.1 H RBC (4.00 - 5.60 x10 6/uL) 3.93 L Hgb (12.5 - 16.9 g/dL) 11.4 L Hct (37.5 - 50.7 %) 34.2 L MCV (81.0 - 99.0 fL) 87.0 MCH (27.0 - 33. 0 pg) 29.0 MCHC (33.0 - 37.0 g/dL) 33.3 RDW (11.5 - 14.5 %) 14.0 Plt Count (150 - 400 x10 3/uL) 22 4 MPV (7.0 - 9.0 fL) 10.7 H Neut % (Auto) (56.0 - 77.0 %) 88.4 H Lymph % (Auto) (14.0 - 32.0 %) 4. 5 L [place] % (Auto) (4.8 - 9.0 %) 6.1 Eos % (Auto) (0.3 - 3.7 %) 0.3 Baso % (Auto) (0.0 - 2.0 %) 0. 2 Neut # (Auto) (2.0 - 7.6 x10 3/uL) 15.99 H Lymph # (Auto) (1.0 - 3.8 x10 3/uL) 0.82 L [place] # (Auto) (0.1 - 0.8 x10 3/uL) 1.10 H Eos # (Auto) (0.0 - 0.2 x10 3/uL) 0.05 Baso # (Auto) (0.0 - 0.2 x10 3/uL) 0.03 Abs Immat Gran (auto) (0.00 - 0.03 x10 3/uL) 0.09 H Add Manual Diff NO Immatur e Gran % (0.0 - 2.0 %) 0.5 Nucleated RBC % (0 - 0 %) 0.0 Nucleated RBCs # (Man) (0.0 - 0.1 x10 3/uL) 0.00 01/04 01/04 01/04 2205 2148 2000 Chemistry Sodium (134 - 147 mEq/L) 133 L Potassium (3.4 - 5.0 mEq/L) 4.2 Chloride (100 - 108 mEq/L) 98 L Carbon Dioxide (21 - 33 mEq/l) 2 8 Anion Gap (0 - 20) 12 BUN (7 - 25 mg/dL) 17 Creatinine (0.6 - 1.3 mg/dL) 1.2 Glomerular Filtr Rate (80 - 90) 68.0 L Glucose (77 - 141 mg/dL) 138 Lactic Acid (0.4 - 1.9 mmol/L) 2.9 H Calcium (8.0 - 10.5 mg/dL) 9.1 Total Bilirubin (0.0 - 1.0 mg/dL) 1.00 AST (8 - 34 IUnit/L) 19 ALT (10 - 49 IUnit/L) 11 Total Alk Phosphatase (20 - 125 IUnit/L) 60 Total Protein (6.4 - 8.2 g/dL) 7.8 Albumin (3.4 - 5.0 g/dL) 4.10 Hematology WBC (4.5 - 11.0 x10 3/uL) 16.7 H RBC (4.00 - 5.60 x10 6/uL) 4.58 Hgb (12.5 - 16.9 g/dL) 13.1 Hct (37.5 - 50.7 %) 39.8 MCV (81.0 - 99.0 fL) 86.9 MCH (27.0 - 33.0 pg) 28.6 MCHC (33.0 - 37.0 g/dL) 32.9 L RDW (11.5 - 14.5 %) 13.9 Plt Count (150 - 400 x10 3/uL) 268 MPV (7.0 - 9.0 fL) 10.3 H Neut % (Auto) (56.0 - 77.0 %) 88.4 H Lymph % (Auto) (14.0 - 32.0 %) 5.4 L [place] % (Auto) (4.8 - 9.0 %) 5.3 Eos % (Auto) (0.3 - 3.7 %) 0.0 L Baso % (Auto) (0.0 - 2.0 %) 0.2 Francia t # (Auto) (2.0 - 7.6 x10 3/uL) 14.77 H Lymph # (Auto) (1.0 - 3.8 x10 3/uL) 0.90 L [place] # (Auto) (0.1 - 0.8 x10 3/uL) 0.89 H Eos # (Auto) (0.0 - 0.2 x10 3/uL) 0.00 Baso # (Auto) (0.0 - 0.2 x10 3/uL) 0.04 Abs Immat Gran (auto) (0.00 - 0.03 x1 0 3/uL) 0.11 H Add Manual Diff NO Immature Gran % (0.0 - 2.0 %) 0.7 Nucleated RBC % (0 - 0 %) 0.0 Nucleated RBCs # (Man) (0.0 - 0.1 x10 3/uL) 0.00 Urines Urine Color (YEL/STRAW) RED H Urine Appearance (CLEAR) CLOUDY H Urine pH (5.0 - 7.0) 7.0 Ur Specific [place] (1.005 - 1.030) 1.005 Urine Protein (NEGATIVE) 2+ H Urine Glucose (UA) (NEGATIVE) NEGATIVE Urine Ketones (NEGATIVE) NEGATIVE Urine Blood (NEGATIVE) 2+ H Urine Nitrite (NEGATIVE) NEGATIVE Urine Bilirubin (NEGATIVE) NEGATIVE Urine Urobilinogen (0.2 - 1. 0 mg/dL) 0.2 Ur Leukocyte Esterase (NEGATIVE) TRACE H Urine RBC (0 - 3 RBC/HPF) >50 H Urine WB C (0 - 3 WBC/HPF) >50 H Ur Squamous Epith Cells (NONE SEEN /HPF) NONE SEEN Calcium Oxalate Crystal (NONE SEEN /HPF) 4+ H Urine Bacteria (NONE SEEN /HPF) NONE SEEN Urine Yeast (NONE /HPF) 2+ H Results: labs reviewed, vital signs reviewed, CT results reviewedFree text obj notes:Physical Examination: Constitutional: no acute distressEyes: normal external eye, conjunctiva and sclera normalEars, nose, mouth, throat: normocephalic, moist mucous membranesRespiratory: respirations unlabored on room airGastrointestinal: soft, non-distended, non-tender, no costovertebral angle tendernessGenitourinary: circumcised, normal phallus, bilateral descended testes, three-way Black in place draining clear urine mixed with old bloody urineMusculoskeletal: no clubbing, cyanosis or edemaSkin: no rashesNeurologic: no focal deficitsPsychiatric: appropriate mood and affectHematologic: no bruising Procedure:The existing three-way Black was started on continuous bladder irrigation. The patient's bladder was manually irrigated with 1 L of sterile water with few small clots returning wit h his urine remaining clear. CBI was continued. Diagnosis, Assessment Plan Diagnosis, Assessment PlanFree Text A P:This is a 62-year-old male wit h schizophrenia, hypertension, BPH s/p UroLift 01/03/2023. Developed persistent hematuria postop . CT abdomen pelvis with normal upper tracts, he does have a leukocytosis. Fever, otherwise appears nontoxic. He is currently receiving Zosy n and had 1 dose of ceftriaxone. - Continue Black catheter- Continue CBI, titrate to clear- Ok to resume regular diet at this time. NPOpMN Crystal Alberts MDTexas [facility] at 1312 RPT #:[id number] OF REPORTIWEwbjffwvptok7416-77-62Y54:05:00G.PDOC 2 [id number] for patient [id number]:12:53 2023-01-05 11:34:00 [id number]:34:00 [facility] ([facility])History Physical - AdultREPORT#:[id number] REPORT STATUS: SignedREPORT INITIALIZATION DATE:01/05/23 TIME: 113 PATIENT: MATHEW CASTILLO UNIT #: [id number]#: [id number] [address] [birth year] AGE: 62 SEX: M ATTEND: Salinas Alba I MDABRADEN AUTHOR: Sofia Cheng NPREPT SERVICE DT/TIME: 01/05/23 1134* ALL edits or amendments must be made on th e electronic/computer document * History of Presen t Illness HPIChief complaint:HematuriaHPI:62-year-old male with las t medical history of, BPH, s/p bladder lift yesterday by Dr. Jones transferred from [place] for urology evaluation secondary tohematuria after bladder irrigation failed. pt was seen and evaluated by Dr. 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 Last admitted to LT[facility] on 10/16/22 with urinary retention. Abnormal labs: WBC 16.7, lcti c acid-2.9, ua with trace leukocyte estrace and wbc>50CT abd/pelvis 1. Prostatomegaly. Decompressed bladder with a Black in place.2. No hydronephrosis. No enhancing renal masses.3. Cholelithiasis and mildly distended gallbladder.4. Moderate hiatal hernia. HistoryPast medical history:Reports: Hypertension, BPH, Schizophrenia. Additional surgical history:None reportedAdditional family history:NoncontributoryAlcohol use: Denies EtOH useDrug use: Denies recreational drugsSmoking status for patients 13 years old or older: Preeti sultana SmokerDate last smoked: 10/16/22 Medication/Allergy-Vaccine HxAllergies:Coded Allergies:No Known Allergies (10/16/22) Review o f SystemsConstitutional:Denies: chills, fever. ENT:Denies: earache, nasal congestion, sore throat. Respiratory:Denies: hemoptysis, parox nocturnal dyspnea, pleurisy, pleuritic pain, pneumonia, SOB, wheezing. Cardiovascular:Denies: chest pain, palpitations. GI:Denies: abdominal pain, nausea, vomiting. :Reports: hematuria. Denies: flank pain, frequency. Musculoskeletal: Arthritis: Denies: left upper, left lower, right upper, right lower. Neuro:Denies: change in LOC, confusion, dizziness, focal weakness, gait problem, headache, lightheaded, numbness, seizure, slurred speech, spinning sensation, syncope, unable to speak, vision change. Psych:Denies: agitation, anxiety, auditory hallucination, change in mental status, confusion, delusional, depression, homicidal ideation, hostile, insomnia, stress, suicidal ideation, visual hallucination. Physical ExamVS/ I OVital Signs: Date Time Temp Pulse Resp B/P B/P Pulse O2 O2 Flow FiO2 Mean Ox Delivery Rate 01/05 1112 36.7 88 18 110/72 84.8 93 01/05 0655 37.7 100 18 121/63 82.3 93 01/05 0404 38.2 91 14 116/75 88.9 95 Room air 01/05 0211 37.3 111 15 147/83 104.4 96 Room air 01/05 0158 37.2 99 19 127/94 105 98 Room air 01/04 1926 37.4 102 16 128/82 97 99 Room air 24 hour I O ending at 0700 : 01/05 0700 01/04 1900 Intake Total Output Total Balance Patient 70.909 kg Weight Weight Standin g scale Measurement Method PATIENT WEIGHT: Weight (lb): Weight (oz): Weight (kg): 70.909 General appearance: alert, awakeHead/Eyes: atraumatic, clear cornea, EOMI, normocephalic, normal conjunctiva/sclera, normal eyelids/periorb, PERRLANeck: non-tender, no bruit/NL carotids, no JVD, normal thyroid, supple/no meningismusCardiovascular: normal capillary refill, regular rate rhythmRespiratory: no distress, no tendernessAbdomen/GI: active bowel sounds, soft, non-tender, no guarding, no rebound, no distention, no mass/organomegaly, no pulsatile mass, no hernia, normal abdominalaorta Abdomen quadrants:LLQ normal bowel sounds, LUQ normal bowel sounds, RLQ normal bowel sounds, RU Q normal bowel soundsGenitourinary: urinary catheter, hematuriaExtremities: moves all, no edema-all extremities, normal capillary refill, normal range of motion, normal sensory, normal motor functionNeuro/SKILLS TRAINER: alert, oriented X 3Skin : dry, intact, no gross abnormalitiesPsychiatry: n o hallucinations, normal affect, normal judgment/insight, normal mood, not homicidal, no t suicidal ResultsFindings/Data:Laboratory Tests: 01/05 01/05 01/05 01/05 0328 0328 0328 0200 Chemistry Sodium (134 - 147 mEq/L) 132 L Potassium (3.4 - 5.0 mEq/L) 4.2 Chloride (100 - 108 mEq/L) 99 L Carbon Dioxide (21 - 33 mEq/l) 2 4 Anion Gap (0 - 20) 14 BUN (7 - 25 mg/dL) 15 Creatinine (0.6 - 1.3 mg/dL) 1.1 Glomerular Filt r Rate (80 - 90) 75.4 L Glucose (77 - 141 mg/dL) 120 Hemoglobin A1c (4.8 - 6.0 %A1C) 5.1 Lactic Acid (0.4 - 1.9 mmol/L) 1.1 0.9 Calcium (8.0 - 10.5 mg/dL) 8.6 Phosphorus (2.5 - 4.9 MG/DL) 3.4 Magnesium (1.6 - 2.6 mg/dL) 1.69 Triglycerides (40 - 150 mg/dL) 90 Cholesterol (<200 mg/dL) 178 LDL Cholesterol Measurd (0 - 100 mg/dL) 104.0 H HDL Cholesterol (40 - 60 MG/DL) 63.8 H Cholesterol/HDL Ratio (3.43 - 4.97 RATIO) 2.79 L TSH (0.42 - 5.47 IU/mL) 2.37 Hematology WBC (4.5 - 11.0 x10 3/uL) 18.1 H RBC (4.00 - 5.60 x10 6/uL) 3.93 L Hgb (12.5 - 16.9 g/dL) 11.4 L Hct (37.5 - 50.7 %) 34.2 L MCV (81.0 - 99.0 fL) 87.0 MCH (27.0 - 33.0 pg) 29.0 MCHC (33.0 - 37.0 g/dL ) 33.3 RDW (11.5 - 14.5 %) 14.0 Plt Count (150 - 400 x10 3/uL) 224 MPV (7.0 - 9.0 fL) 10.7 H Francia t % (Auto) (56.0 - 77.0 %) 88.4 H Lymph % (Auto) (14.0 - 32.0 %) 4.5 L [place] % (Auto) (4.8 - 9.0 % ) 6.1 Eos % (Auto) (0.3 - 3.7 %) 0.3 Baso % (Auto ) (0.0 - 2.0 %) 0.2 Neut # (Auto) (2.0 - 7.6 x10 3/uL) 15.99 H Lymph # (Auto) (1.0 - 3.8 x10 3/uL ) 0.82 L [place] # (Auto) (0.1 - 0.8 x10 3/uL) 1.10 H Eos # (Auto) (0.0 - 0.2 x10 3/uL) 0.05 Baso # (Auto) (0.0 - 0.2 x10 3/uL) 0.03 Abs Immat Gran (auto) (0.00 - 0.03 x10 3/uL) 0.09 H Add Manual Diff NO Immature Gran % (0.0 - 2.0 %) 0.5 Nucleated RBC % (0 - 0 %) 0.0 Nucleated RBCs # (Man) (0.0 - 0.1 x10 3/uL) 0.00 01/04 01/04 12/08 0 3335 2149 2000 Chemistry Sodium (134 - 147 mEq/L) 133 L Potassium (3.4 - 5.0 mEq/L) 4.2 Chloride (100 - 108 mEq/L) 98 L Carbon Dioxide (21 - 33 mEq/l) 28 Anion Gap (0 - 20) 12 BUN (7 - 25 mg/dL) 17 Creatinine (0.6 - 1.3 mg/dL) 1.2 Glomerular Filtr Rate (80 - 90) 68.0 L Glucose (77 - 141 mg/dL) 138 Lactic Acid (0.4 - 1.9 mmol/L) 2.9 H Calcium (8.0 - 10.5 mg/dL) 9.1 Total Bilirubin (0.0 - 1.0 mg/dL) 1.00 AST (8 - 34 IUnit/L) 19 ALT (10 - 49 IUnit/L) 11 Total Al k Phosphatase (20 - 125 IUnit/L) 60 Total Protein (6.4 - 8.2 g/dL) 7.8 Albumin (3.4 - 5.0 g/dL) 4.10 Hematology WBC (4.5 - 11.0 x10 3/uL) 16.7 H RBC (4.00 - 5.60 x10 6/uL) 4.58 Hgb (12.5 - 16.9 g/dL) 13.1 Hct (37.5 - 50.7 %) 39.8 MCV (81.0 - 99.0 fL) 86.9 MCH (27.0 - 33.0 pg) 28.6 MCHC (33.0 - 37.0 g/dL) 32.9 L RDW (11.5 - 14.5 %) 13.9 Plt Count (150 - 400 x10 3/uL) 268 MPV (7. 0 - 9.0 fL) 10.3 H Neut % (Auto) (56.0 - 77.0 %) 88.4 H Lymph % (Auto) (14.0 - 32.0 %) 5.4 L [place] % (Auto) (4.8 - 9.0 %) 5.3 Eos % (Auto) (0.3 - 3.7 %) 0.0 L Baso % (Auto) (0.0 - 2.0 %) 0.2 Francia t # (Auto) (2.0 - 7.6 x10 3/uL) 14.77 H Lymph # (Auto) (1.0 - 3.8 x10 3/uL) 0.90 L [place] # (Auto) (0.1 - 0.8 x10 3/uL) 0.89 H Eos # (Auto) (0.0 - 0.2 x10 3/uL) 0.00 Baso # (Auto) (0.0 - 0.2 x10 3/uL) 0.04 Abs Immat Gran (auto) (0.00 - 0.03 x1 0 3/uL) 0.11 H Add Manual Diff NO Immature Gran % (0.0 - 2.0 %) 0.7 Nucleated RBC % (0 - 0 %) 0.0 Nucleated RBCs # (Man) (0.0 - 0.1 x10 3/uL) 0.00 Urines Urine Color (YEL/STRAW) RED H Urine Appearance (CLEAR) CLOUDY H Urine pH (5.0 - 7.0 ) 7.0 Ur Specific [place] (1.005 - 1.030) 1.005 Urine Protein (NEGATIVE) 2+ H Urine Glucose (UA ) (NEGATIVE) NEGATIVE Urine Ketones (NEGATIVE) NEGATIVE Urine Blood (NEGATIVE) 2+ H Urine Nitrite (NEGATIVE) NEGATIVE Urine Bilirubin (NEGATIVE) NEGATIVE Urine Urobilinogen (0.2 - 1. 0 mg/dL) 0.2 Ur Leukocyte Esterase (NEGATIVE) TRAC E H Urine RBC (0 - 3 RBC/HPF) >50 H Urine WBC (0 - 3 WBC/HPF) >50 H Ur Squamous Epith Cells (NONE SEEN /HPF) NONE SEEN Calcium Oxalate Crystal (NONE SEEN /HPF) 4+ H Urine Bacteria (NONE SEEN /HPF) NONE SEEN Urine Yeast (NONE /HPF) 2+ H Radiology data:Recent Impressions-Last [address] SCAN - CT ABD PELVIS W/CONT 01/04 9140 Report Impression - Status: SIGNED Entered: 01/04/2023 7324 IMPRESSION: 1. Prostatomegaly. Decompressed bladder with a Black in place.2. No hydronephrosis. No enhancing renal masses.3. Cholelithiasis and mildly distended gallbladder.4. Moderate hiatal hernia.Impression By: Nick Magaña M.D. Diagnosis, Assessment Plan Free Text DxA P NotesFree Text DxA P Notes:Assessment:62-year-old male with las t medical history of, BPH, s/p bladder lift yesterday by Dr. Jones transferred from [place] for urology evaluation secondary tohematuria after bladder irrigation failed. pt was seen and evaluated by Dr. 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 Last admitted to LTAC[facility] on 10/16/22 with urinary retention. Abnormal labs: WBC 16.7, lcti c acid-2.9, ua with trace leukocyte estrace and wbc>50CT abd/pelvis 1. Prostatomegaly. Decompressed bladder with a Black in place.2. No hydronephrosis. No enhancing renal masses.3. Cholelithiasis and mildly distended gallbladder.4. Moderate hiatal hernia. 1. Hematuria s/p bladder lift2. Leukocytosis3. sepsis/UTI LAB REPORTS ANAEROBIC BOTTLE: GRAM POSITIVE COCCI IN PAIRS AND CHAINS, aerobic bottle pending.4. Cholelithiasis and mildly distended gallbladder.5. HX OF BPH, Hypertension , Schizophrenia Plan of care:Admit patient for further evaluation and treatmentUrology consultation in placeKeep Black with CBI Ceftriaxone 2 g dailyID consultationFollow-up with blood culture and urine cultureI's and O'sReplace electrolytesRepeat labsFurther recommendation based on patient's clinical cours e at 0055 at 0739 RPT #:[id number] OF REPORTHPHistory and physical krslpybkovu5975-69-72W85:34:00G.[id number] 8 AVAvailable for patient [id number]:55:31 2023-01-05 01:59:00 [id number]:59:00 [facility] ([facility])Clinical NoteREPORT#:[id number] REPORT STATUS: SignedREPOR T INITIALIZATION DATE:01/05/23 TIME: 0159 PATIENT: MATHEW CASTILLO UNIT #: [id number]# : [id number] [address]CBE: [address] AGE : 62 SEX: M ATTEND: Salinas Alba I [facility] AUTHOR: Sofia Cheng NPREPT SERVICE DT/TIME: 01/05/23 0159* ALL edits or amendments must be made on the electronic/computer document * Clinical NoteNote:Clinical data reviewedOrders placed at 0222 RPT #:[id number] OF REPORTCLClinical [id number]:59:00G.[id number] katerine able for patient [id number]:22:53 2023-01-04 20:02:00 [id number]:02:00 [facility]EMERGENCY PROVIDER REPORTREPORT#:[id number] REPORT STATUS: SignedDATE:01/04/23 TIME: 2001 PATIENT: MATHEW CASTILLO UNIT #: [id number]# : [id number] [address] 62 SEX: M PCP PHYS: Lakhwinder Guillermo MDSERVICE AUTHOR: Vee Horton APRNNP * ALL edits or amendments must be made on the electronic/computer document * Vee Horton 01/04/23 2002:HPI-General Illness Free Text HPI NotesFree Text HPI Notes62 yo male with HTN, BPH , chronic indwelling black cath, s/p bladder lift yesterday per Dr. Jones presents with gross hematuria associated with n/v. Denies abdominal pain, weakness, dizziness, chest pain and SOB. 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 Pt denies chest pain, SOB, abdominal pain, dizziness and syncope . GeneralConfirmed Patient YesInitial Greet Date/Time 01/04/231928 PresentationChief Complaint blood in urine Review of Systems ROS StatementsAll systems rev neg except as marked. Free Text ROS NotesFree Text ROS NotesAll system s reviewed and noted in HPI. Past Medical History - AdultStated Complaint BLOOD IN URINE BLACK LEAKINGAllergiesCoded Allergies:No Known Allergies (10/16/22) Calculated Suicide Risk (nurs) No riskPast Medical History:Reports: Hypertension, BPH, Schizophrenia. Additional Surgical HistoryNone reportedAdditional Family HistoryNoncontributoryAlcohol Use Denies EtOH useDrug Use Denies recreational drugsSmoking status for patients 13 years old or older: Forme r Smoker Physical Exam Vital SignsVital SignsFirst Documented: Result Date Time Pulse Ox 99 01/04 192 B/P 128/82 01/04 192 B/P Mean 97 01/04 192 6 O2 Delivery Room air 01/04 1926 Temp 37.4 01/04 1926 Pulse 102 01/04 1926 Resp 16 01/04 1926 Las t Documented: Result Date Time Pulse Ox 99 01/04 192 B/P 128/82 01/04 192 B/P Mean 97 01/04 192 6 O2 Delivery Room air 01/04 1926 Temp 37.4 01/04 1926 Pulse 102 01/04 1926 Resp 16 01/04 1926 Review of Vital Signs Reviewed Physical ExamGeneral/Const General/Const Awake, Alert, No acute distress, CooperativeMS Head Head Atraumatic, NormocephalicResp/Chest Respiratory/Chest Atraumatic, Breath sounds NL, Breath sounds = bilat, No respiratory distressCardiovascular Cardiovascular Regular rhythm, Heart sounds NLAbdomen/GI Abdomen/GI Atraumatic, Soft, Non-tender, No guarding, No rebound, BS normoactiveSkin Skin No rashGenitourinary General black cath in place (gross hematuria noted) Neurologic Neurologic Oriented X3 Interpretation Diagnostics Lab Results InterpretationConsiderations Independ review imaging, Reviewed prior recordsResultsLaboratory Tests 01/04/232000:[Embedded Image Not Available]Laboratory Tests: 01/04 01/04 01/04 2205 2146 2000 Chemistr y Sodium (134 - 147 mEq/L) 133 L Potassium (3.4 - 5.0 mEq/L) 4.2 Chloride (100 - 108 mEq/L) 98 L Carbon Dioxide (21 - 33 mEq/l) 28 Anion Gap (0 - 20) 12 BUN (7 - 25 mg/dL) 17 Creatinine (0.6 - 1.3 mg/dL) 1.2 Glomerular Filtr Rate (80 - 90) 68.0 L Glucose (77 - 141 mg/dL) 138 Lactic Acid (0.4 - 1.9 mmol/L) 2.9 H Calcium (8.0 - 10.5 mg/dL) 9.1 Total Bilirubin (0.0 - 1.0 mg/dL) 1.00 AST (8 - 34 IUnit/L) 19 ALT (10 - 49 IUnit/L) 11 Total Alk Phosphatase (20 - 125 IUnit/L) 60 Total Protein (6.4 - 8.2 g/dL) 7.8 Albumin (3.4 - 5.0 g/dL) 4.10 Hematology WBC (4. 5 - 11.0 x10 3/uL) 16.7 H RBC (4.00 - 5.60 x10 6/uL) 4.58 Hgb (12.5 - 16.9 g/dL) 13.1 Hct (37.5 - 50.7 %) 39.8 MCV (81.0 - 99.0 fL) 86.9 MCH (27.0 - 33.0 pg) 28.6 MCHC (33.0 - 37.0 g/dL) 32.9 L RDW (11.5 - 14.5 %) 13.9 Plt Count (150 - 400 x10 3/uL) 268 MPV (7.0 - 9.0 fL) 10.3 H Francia t % (Auto) (56.0 - 77.0 %) 88.4 H Lymph % (Auto) (14.0 - 32.0 %) 5.4 L [place] % (Auto) (4.8 - 9.0 % ) 5.3 Eos % (Auto) (0.3 - 3.7 %) 0.0 L Baso % (Auto) (0.0 - 2.0 %) 0.2 Neut # (Auto) (2.0 - 7. 6 x10 3/uL) 14.77 H Lymph # (Auto) (1.0 - 3.8 x10 3/uL) 0.90 L [place] # (Auto) (0.1 - 0.8 x10 3/uL) 0.89 H Eos # (Auto) (0.0 - 0.2 x10 3/uL) 0.00 Baso # (Auto) (0.0 - 0.2 x10 3/uL) 0.04 Abs [place] t Gran (auto) (0.00 - 0.03 x10 3/uL) 0.11 H Add Manual Diff NO Immature Gran % (0.0 - 2.0 %) 0. 7 Nucleated RBC % (0 - 0 %) 0.0 Nucleated RBCs # (Man) (0.0 - 0.1 x10 3/uL) 0.00 Urines Urine Color (YEL/STRAW) RED H Urine Appearance (CLEAR) CLOUDY H Urine pH (5.0 - 7.0) 7.0 Ur Specific [place] (1.005 - 1.030) 1.005 Urine Protein (NEGATIVE) 2+ H Urine Glucose (UA) (NEGATIVE) NEGATIVE Urine Ketones (NEGATIVE) NEGATIVE Urine Blood (NEGATIVE) 2+ H Urine Nitrite (NEGATIVE) NEGATIVE Urine Bilirubin (NEGATIVE) NEGATIVE Urine Urobilinogen (0.2 - 1.0 mg/dL) 0.2 Ur Leukocyte Esterase (NEGATIVE) TRACE H Urine RBC (0 - 3 RBC/HPF) >50 H Urine WBC (0 - 3 WBC/HPF) >50 H Ur Squamous Epith Cells (NONE SEEN /HPF) NONE SEEN Calcium Oxalate Crystal (NONE SEEN /HPF) 4+ H Urine Bacteria (NONE SEEN /HPF) NONE SEEN Urine Yeast (NONE /HPF) 2+ H Microbiology: Date/Time Procedure - Status Source Growth 01/04 2205 Urine Culture - COMP URINE PSEUDOMONAS AERUGINOSA 01/04 2149 Blood Culture - COMP BLOO D 01/04 2149 Blood Culture Gram Stain - COMP BLOOD 01/04 2149 Blood Culture - COMP BLOOD ENTEROCOCCUS FAECALIS 01/04 2149 Blood Culture Gram Stain - COMP BLOOD Recent Impressions:CAT SCAN - CT ABD PELVIS W/CONT 01/04 09 Report Impression - Status: SIGNED Entered: 01/04/20232226 IMPRESSION: 1. Prostatomegaly. Decompressed bladder with a Black in place.2. No hydronephrosis. No enhancing renal masses.3. Cholelithiasis and mildly distended gallbladder.4. Moderate hiatal hernia.Impression By: Nick Magaña M.D. 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 Tachycardic on arrival. Exam remarkable for gross hematuria noted to black cath bag, actively draining. Differnetials considered UTI, pyelonephritis, sepsis, malignancy, nephrolithiasis. CBC/CMP, CT abdomen pelvis ordered. CBC remarkable for leukocytosis, Hbg/Hct stable. 2051 secondary sepsis bundle ordered 2/2 tahcycardia, low grade fever, leukocytosis in setting of recent urology intervention. CT abdomen/pelvis remarkable for 1 . Prostatomegaly. Decompressed bladder with a Fole y in place. 2. No hydronephrosis. No enhancing renal masses.3. Cholelithiasis and mildly distended gallbladder. 4. Moderate hiatal hernia . Black draining well troughoutED course, gross hematuria persist. UA shows > 50 wbc. Plan admit to hospital medicine, consult urology for am eval. Pt/family agree with plan. ED CourseMedication(s) OrderedMedication(s) Ordered:Anti-Infective Agents Sig/Mark Start time Last Medication Dose Route Stop Time Status Admi n Ceftriaxone Sodium 1,000 MG X1ED STA 01/05 2052 DC 01/04 Sodium Chloride 10 ML IV 01/04 Central Nervous System Agents Sig/Mark Start time Last Medication Dose Route Stop Time Status Admin Morphine Sulfate 2 MG X1ED STA 01/04 1955 DC 01/04 IV 01/04 Gastrointestinal Drugs Sig/Mark Start time Last Medication Dose Route Stop Time Status Admin Ondansetron HCl 4 M G X1ED STA 01/04 1955 DC 01/04 IV 01/04 Patient Discharge Departure Vital Signs/ConditionVital SignsFirst Documented: Result Date Time Pulse Ox 99 01/04 1926 B/P 128/82 01/04 1926 B/P Mean 97 01/04 1926 O2 Delivery Room air 01/04 1926 Temp 37.4 01/04 Pulse 102 01/04 1926 Resp 16 01/04 1926 Last Documented: Result Date Time Pulse Ox 99 01/04 1926 B/P 128/82 01/04 1926 B/P Mean 97 01/04 1926 O2 Delivery Room air 01/04 1926 Temp 37.4 01/04 1926 Pulse 102 01/04 1926 Resp 16 01/04 1926 All vital signs available at the time of this entry have been reviewed. Condition Guarded Clinical ImpressionClinical ImpressionPrimary Impression: Gross hematuriaSecondary Impressions : Leukocytosis, UTI (urinary tract infection)Time of Impression 0040 Disposition DecisionHospitalize Hosp Physician Name Fernanda DukesSalinas Aleyda MCKEON [facility] Physician Hospitalist Request Time 34 Request Date 01/05/23 )( Accepts Hospitalization Yes )( Reason for Hospitalizationgross hematuria, SIRS )( Accepted Time 34 )( Accepted Date 01/05/23 Call Information will see patient, agrees with eval, agrees with plan Discharge/Care PlanCounseled Regarding Diagnosis, Lab results, Imaging studies, Need for admission Asa Lucero 01/15/23 0551:Past Medical History - AdultHome MedicationsActive ScriptsTAMSULOSIN ER (FLOMAX) 0.4 MG PO BID 6A 6P 30 Days #60 CAP Prov: 10/26/22DOCUSATE SODIUM (COLACE) 100 MG PO BID PRN PRN CONSTIPATION 30 Days #60 CAP Prov: 10/26/22 Reported MedicationsBENZTROPINE 1 MG PO DAILY HALOPERIDOL (HALDOL) 10 MG PO BID Patient Discharge Departure Discharge/Care Plan(Auto) PrescriptionsCurrent Visit ScriptsCEPHALEXIN (KEFLEX) 500 MG PO Q6H 7 Days #28 CAPS CIPROFLOXACIN 500 MG PO BID CIPROFLOXACIN 500 M G PO BID #14 TABS Supervising Physician Note MidLv Saw Pt AloneI have reviewed the PA/GAME ENGINEER's note and plan of care. I was available for consultation a s needed at all times during the patient's visit i n the emergency department. I agree with the clinical impression, plan and disposition. at 2148 at 0552RPT #:[id number] OF REPORTEDEmergen department [id number]:02:00G.[id number] a ilable for patient [id number]:48:19 2022-11-19 18:14:00 [id number]:14:00 [facility] ([facility])Discharge SummaryREPORT#:[id number] REPORT STATUS: SignedDATE:11/19/22 TIME: 1813 PATIENT: MATHEW CASTILLO UNIT #: [id number]# : [id number] ROOM/BED: 6630-1DOB: [birth year] AGE : 62 SEX: M ATTEND: Salinas Alba I [facility] AUTHOR: Salinas Alba MD * ALL edits or amendments must be made on the electronic/computer document * PCP PCPPCP:PCP: N o Primary or Family PhysicianATTEND PHYS: Salinas Alba MD Discharge to: home General InformationProblem List/A P: 1. Rupture of urete r Date of admission:Observation Start Date: Date o f admission: 10/16/22 Discharge date: 10/26/22Admission diagnosis:1. Abdominal distention, severe bilateral hydronephrosis, large amount of urinary retention -Status post Black insertion large amount of urine was obtained2. Acute kidney injury3. Hypokalemia/hypocalcemia, hyperchloremia4. Metabolic acidosis5. Possible BPH6. Severe bilateral hydronephrosis7. Hypertension8. SchizophreniaDischarge diagnosis:N28.89 OTHER SPECIFIED DISORDERS OF KIDNEY AND URETER E87.20 ACIDOSIS, UNSPECIFIED N13.6 PYONEPHROSIS N17.9 ACUTE KIDNEY FAILURE, UNSPECIFIED E83.42 HYPOMAGNESEMIA E83.51 HYPOCALCEMIA E87.6 HYPOKALEMIA E87.8 OTH DISORDERS OF ELECTROLYTE AND FLUID BALANCE, NEC F17.200 NICOTINE DEPENDENCE, UNSPECIFIED, UNCOMPLICATED F20.9 SCHIZOPHRENIA, UNSPECIFIED I10 ESSENTIAL (PRIMARY) HYPERTENSION J47.9 BRONCHIECTASIS, UNCOMPLICATED 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 K52.9 NONINFECTIVE GASTROENTERITIS AND COLITIS, UNSPECIFIED N40.1 BENIGN PROSTATIC HYPERPLASIA WITH LOWER URINARY TRACT SYMP Hospital course:62-year-old male with last medical history of, BPH, transferred from [place] for urology evaluation and treatmen t secondary to possible ruptured ureter. As per patient his abdomen was distended for at least for 2 days and hewas having difficulty urinating . Patient presented to outside facility. Imagingrevealed severe bilateral hydronephrosis with evidence of active urine extravasation and large amount of urine in the bladder pushing all the way up tothe abdomen. As per patient's daughter about 3 L of fluid was removed within 10minutes of Black insertion. Patient reported h e had been experiencing urinary hesitancy for the past 2 to 3 years.Patient was admitted for further evaluation and treatment. Urology and nephro consultation was placed. Patient was also started on tamsulosin and bicarb drip.10/19 MRSA surveillance screen was negative.10/20 X-ray of the chest showed mild interstitial pulmonary edema. No focal consolidation. Consultants evaluations noted.10/21 Blood culture showed no growth after 48 hoursECG: Normal sinus rhythmNo evidence of deep vein thrombosisID had seen the patient. Continued empiric IV antibiotics-Zosyn, tamsulosin p.o.Patient was discharged with Black in place. The patient was on continuous telemetry, BP control, glycemic control, pain control, electrolyte control, DVT/GI prophylaxis . The patient was hemodynamically stable and was discharged home,follow-up with PCP. Discharge medications as per reconciliation list. Med Rec Med RecDischarge meds:Continue taking these medications:BENZTROPINE (BENZTROPINE) 0.5 MG TAB 1 MILLIGRAM ORAL DAILY. HALOPERIDOL (HALDOL) 10 MG TAB 10 MILLIGRAM ORAL TWICE DAILY. Start taking the following new medications:TAMSULOSIN ER (FLOMAX) 0.4 MG CAP.SR.24H 0.4 MILLIGRAM ORAL TWICE DAILY AT 6 AM AND 6 PM. Days = 30 Qty = 60 No Refills DOCUSATE SODIUM (COLACE) 100 MG CAP 100 MILLIGRAM ORAL TWICE DAILY NEEDED. as needed for CONSTIPATION Days = 30 Qty = 60 No Refills CIPROFLOXACIN (CIPROFLOXACIN) 500 MG TAB 500 MILLIGRAM ORAL TWICE DAILY. Qty = 20 No Refills ObjectiveVS/I OLast Documented: Result Date Time Pulse Ox 97 10/26 1700 B/P 112/69 10/26 1700 B/P Mean 83.3 10/26 1700 O2 Delivery Room air 10/26 1700 Temp 37.2 10/26 1700 Pulse 90 10/26 1700 Resp 15 10/26 1700 PATIENT WEIGHT: Weight (lb): Weight (oz): Weight (kg): 68.000 Physical ExamGeneral appearance: alert, awakeHead/Eyes: atraumatic, clear cornea, EOMI, normocephalic, normal conjunctiva/sclera, normal eyelids/periorb, PERRLAENT: normal dentition, normal ear left, normal ear right, normal nose, normal pharynx, normal sinusCardiovascular: regular rate rhythmRespiratory: decreased breath sounds, clear to auscultation, no distress, no tendernessAbdomen/GI: active bowel sounds, soft Abdomen quadrants:LLQ normal bowel sounds, LLQ tenderness, LUQ normal bowel sounds, RLQ normal bowel sounds, RLQ tenderness, RUQ normal bowel soundsGenitourinary: foleyExtremities: moves all , no edema-all extremities, normal capillary refill, normal range of motion, normal sensory, normal motor functionNeuro/SKILLS TRAINER: alert, oriented X 3Skin: dry, intact, no gross abnormalitiesPsychiatry: no hallucinations, normal mood Treatments ProceduresLab:Laboratory Tests 10/26 10/26 10/26 10/26 1658 1158 0748 0600 Chemistry Sodium (134 - 147 mEq/L) 140 Potassium (3.4 - 5.0 mEq/L) 4.5 Chloride (100 - 108 mEq/L) 107 Carbon Dioxide (21 - 33 mEq/l) 30 Anion Gap (0 - 20) 8 BUN (7 - 18 mg/dL) 18 Creatinine (0.6 - 1.3 mg/dL) 1.0 Glomerular Filt r Rate (80 - 90) 84.6 Glucose (70 - 110 mg/dL) 91 POC Glucose (70 - 110 MG/DL) 109 95 117 H Calciu m (8.0 - 10.5 mg/dL) 8.1 Imaging:PROCEDURE INFORMATION: Exam: CTA Chest With Contrast Exam date and time: 10/23/2022 5:24 PM Age: 62 years old Clinical indication: Condition or disease; Other: Elevated d dimer TECHNIQUE: Imaging protocol: Computed tomographic angiography of th e chest with contrast. Exam focused on the arteries. 3D rendering (Not supervised by radiologist): MIP and/or 3D reconstructed images were created by the technologist. Radiation optimization: All CT scans at this facility use at least one of these dose optimization techniques: automated exposure control; mA and/o r kV adjustment per patient size (includes targete d exams where dose is matched to clinical indication); or iterative reconstruction. Contrast material: ISOVUE; Contrast [...] Extensive colonic wall thickening of the visualized spleni c flexure compatible with colitis incompletely evaluated. Bones/joints: Unremarkable. No acute fracture. Soft tissues: Unremarkable. Other findings: Thoracic spurring. IMPRESSION: 1. No pulmonary embolus. 2. Extensive colonic wall thickening of the visualized splenic flexure compatible with colitis incompletely evaluated. 3. Small right pleural effusion with right lower lobe atelectasis. 4. Left upper lobe bronchiectasis. 5. Minimal anterior pericardial effusion. 6. Type 4 hiatal hernia measures 7.6 c m X 6.5 cm. 7. Gastric fundal wall thickening, correlation with recent endoscopy is recommended to help exclude an infiltrating mucosal process. PROCEDURE INFORMATION: Exam: US Duplex Lower Extremity Veins, Bilateral Exam date and time: 10/21/2022 7:49 AM Age: 62 years old Clinical indication: Screening exam; Fever, leukocytosis; Additional info: R/O dvt TECHNIQUE: Imaging protocol: Real-time duplex ultrasound of the bilateral extremities with 2-D bateman scale, color Doppler flow and spectral waveform analysis including responses to compression and other maneuvers (when performed) with image documentation. Complete exam focused on the lowe r extremity veins. COMPARISON: CT CHEST W/CONTRAST , CT ABD PELVIS W/CONT 10/15/2022 9:14 PM FINDINGS: Right deep veins: Unremarkable. The common femoral, femoral, proximal profunda femoral, popliteal, and posterior tibial veins are patent without thrombus. Normal Doppler waveforms. Normal compressibility and/or augmentation response. Right superficial veins: Saphenofemora l junction is patent without thrombus. Left deep veins: Unremarkable. The common femoral, femoral , proximal profunda femoral, popliteal, and posterior tibial veins are patent without thrombus. Normal Doppler waveforms. Normal compressibility and/or augmentation response. Left superficial veins: Saphenofemoral junction is patent without thrombus. Soft tissues: Unremarkable. IMPRESSION: No sonographic evidenc e for DVT Discharge Instructions PCPPCP:PCP: No Primary or Family PhysicianATTEND PHYS: Salinas Alba MD )( Discharge to: Home/Self Care Discharge InstructionsAdditional Discharge Routines: PCP Follow-Up, Clinical Trials Specialist Follow-Up)( Diet: Regular Follow-up AppointmentsPCP follow up: PCP: Yumiko Geller MD PC P follow up timeframe: In 5 days Special instructions:CAN FU WITH OWN PCPAttending Physician: Attending Physician: Salinas Alba MD Attending physician follow up timeframe: In 1-2 weeks Special instructions:CALL TO SCHEDULE AN APPOINTMENTConsulting provider 1: Provider 1: Dave Jones MD Specialty: Urology Special instructions:FOR REMOVAL OF BLACK at [address] [facility] #:[id number] OF REPORTDSDischarge [id number]:14:00G.[id number] v ailable for patient [id number]:32:51 2022-10-26 20:52:00 [id number] [address] PATIENT NAME: MATHEW CASTILLO ADMIT DATE: 10/16/22ACCOUN T NO: [id number] ROOM NO: [facility] AGE: 62 REPORT TYPE: PROGRESS NOT E SEX: M ADMITTING PHYSICIAN:Salinas Alba MD ATTENDING PHYSICIAN:Salinas Alba MD DATE: 10/25/2022 SUBJECTIVE: The patient examined, chart reviewed, events of last 24 hoursnoted. Th e patient clinically is doing fair, remains awake and comfortable. Nonew problems reported. Remain s afebrile. No nausea, vomiting reported. Nodiarrhea reported. Continues to have indwellin g Black catheter in place. CURRENT MEDICATIONS: Include benztropine, cholecalciferol, lispro insulin,tamsulosin, haloperidol, Zosyn IV, Tylenol p.r.n., docusate sodium p.r.n.,glucagon p.r.n., hydrocodone bitartrate p.r.n., hydralazine p.r.n., ondansetronp.r.n. PHYSICAL EXAMINATION:GENERAL: The patient is resting comfortably in bed. He is awake and alert,does not appear to be toxic, does not appear to be in any acute distress.VITAL SIGNS: Temperature maximum in last 24 hours is 37.0 degrees Celsius.Current temperature is 37.1 degrees Celsius, blood pressure is 118/70,respirations 1 6 per minute, pulse is 80 per minute. The patient' s weight isaround 68 kg.HEENT: Head is atraumatic and normocephalic. Pupils are equal, round andreacting to light and accommodation bilaterally. Extraocular movements areintact. Oropharynx is clear. Oral hygiene is fair.NECK: Supple. JVD is absent. No carotid bruit, thyromegaly, or cervicallymphadenopathy.LUNGS: There is fair air entry bilaterally.CARDIOVASCULAR: S1, S2 audible. No murmur, gallop, S3 or S4 appreciated.ABDOMEN: Soft and slightly bulging. The patient has mild suprapubic areatenderness. No hepatosplenomegaly . Bowel sounds are normoactive. Has minimaltenderness at the renal angles bilaterally.GENITOURINARY: The patient has indwelling Black catheter in place. Thecatheter appears to be working fine and has clear urine and being drained intothe bag.EXTREMITIES: Both calves are soft. No calf tenderness. No pedal edema.Peripheral pulses are faintly palpable bilaterally.SKIN: The patient's peripheral IV sites are clean without any evidence ofphlebitis . The lower abdominal discomfort has improved. He has an indwelling Black catheter in place. LABORATORY DATA: WBC is stable around 15,000 wit h hemoglobin of 13, hematocritof 39, platelet coun t is 421. Serum sodium is 138, potassium 4.0, chloride 108,bicarbonate 27, glucose 80, BUN 14, creatinine 0.9, estimated GFR is 96, calciumis 7.8. PATIENT NAME: MATHEW CASTILLO ASSESSMENT AND PLAN: The patient with multiple comorbidities was admittedthrough Emergency Room [facility]. He had 3 liters of urine in the bladder and had Foleycatheter in place. The patient was evaluate d by Urology Service and heclinically has shown improvement in his condition with IV antibiotics . He alsohad episode of fever and leukocytosis, which improved with changing antibioticsto Zosyn IV. His antibiotics have been discontinued. Clinically, he seems rebeca doing fairly well. We will keep him off antibiotics and monitor him closelyfor any new development. Discussed with the patient's nursing staff. Dictated By: Carlos Jaffe MD Date Dictated: 10/26/2022 20:52:41Date Transcribed: 10/26/2022 21:14:58ESTRADA/JORGE/Marine #: [id number] ID: [id number] Authenticated and Edited by Skip Jaffe MD On 11/02/22 2:24:00 A M at 0323 PATIENT NAME: MATHEW CASTILLO [id number]:14:00G.[id number] a ble for patient [id number]:24:01 2022-10-26 19:14:00 [id number]:14:00 [facility] Prog. NoteREPORT#:[id number] REPORT STATUS: SignedDATE:10/26/22 TIME: 1913 PATIENT: MATHEW CASTILLO UNIT #: [id number]# : [id number] [address]DOB: [birth year] AGE : 62 SEX: M ATTEND: Salinas Alba I [facility] AUTHOR: Sofia Cheng NP * ALL edits or amendments must be made on the electronic/computer document * SubjectiveChief complaint:Abdominal distention, hydronephrosisHPI:62-year-old male with last medical history of, BPH, transferred from [place] for urology evaluation and treatment secondary to possible ruptured ureter. As per patient his abdomen was distended for at least for 2 days and hewas having difficulty urinating . Patient presented to outside facilityImaging revealed severe bilateral hydronephrosis with evidence of active urine extravasation and large amount of urine in the bladder pushing all the way up tothe abdomen. As per patient's daughter about 3 L of fluid was removed within 10minutes of Black insertion. Patient reports he has been experiencing urinary hesitancy for the past 2 to 3 years. Denies seeing a urologist. Patient deniesfever, chills, dysuria, hematuria, or othe r associated symptoms. Patient deniesshortness of breath, chest pain, nausea, vomiting, diarrhea, constipation.Admission vital signs blood pressur e 146/78, pulse 92, respiration 18, temperature 37.1, O2 sat 96% on room air. Abnormal labs:Hemoglobin 10.9, hematocrit 31.7, potassium 2.8, chloride 114, CO2 18, BUN 41, creatinine 2.1, glucose 643Calcium 4.9. Review of SystemsAdditional notes:Constitutional: Denies: chills, fever. ENT: Denies: earache, nasal congestion, sore throat. Respiratory: Denies: hemoptysis, parox nocturnal dyspnea, pleurisy, pleuritic pain, pneumonia, SOB, wheezing. Cardiovascular: Denies: chest pain, palpitations . GI: Reports: abdominal pain. Denies: nausea, vomiting. : Reports: flank pain, urinary retention. Denies: frequency, hematuria. Musculoskeletal: Arthritis: Denies: left upper, left lower, right upper, right lower. Neuro: Denies: change in LOC, confusion, dizziness, focal weakness, gait problem, headache, lightheaded, numbness, seizure, slurred speech, spinning sensation, syncope, unable to speak, vision change. Psych: Reports: anxiety. Denies: agitation, change in mental status, confusion, depression, homicidal ideation, hostile, insomnia, stress, suicidal ideation. Objective GeneralVS/I O:Vital Signs Date Temp Pulse Resp B/P B/P Mean Pulse Ox FiO2 10/25-10/26 36.8-37.2 69-95 15-19 104-125/64-79 77.4-94.2 95-98 Last Documented: Result Date Time Pulse Ox 97 10/26 1700 B/P 112/69 10/26 170 B/P Mean 83.3 10/26 170 O2 Delivery Room air 10/26 1700 Temp 37.2 10/26 1700 Pulse 90 10/26 1700 Resp 15 10/26 1700 PATIENT WEIGHT: Weight (lb): Weight (oz): Weight (kg): 68.000 Medications:Active Meds + DC'd Last 24 HrsCholecalciferol (VITAMIN D) 1,00 0 INTL.UNITS DAILY PO (CKD) Tamsulosin HCl (Flomax 0.4 mg) 0.4 MG PC DIN PO Acetaminophen (TYLENOL) 650 MG Q4H PRN PRN PO Docusate Sodium (COLACE) 100 MG BID PRN PRN PO Haloperidol (HALDOL) 10 MG BID PO Hydralazine HCl (APRESOLINE) 10 MG Q6H HI N PRN IV Ondansetron HCl (ZOFRAN) 4 MG Q4H PRN PRN IV Benztropine Mesylate (COGENTIN) 1 MG DAILY PO Dextrose/Water (DEXTROSE 10% IN WATER) 125 ML ASDIR PRN IV (CKD) Dextrose/Water (DEXTROSE 10% IN WATER) 250 ML ASDIR PRN IV (CKD) Glucagon (GLUCAGON) 1 MG ASDIR PRN IM Insulin Human Lispr o (HUMALOG) 0 AC HS SUBQ ResultsFindings/Data:Laboratory Tests 10/26/22 0600:[Embedded Image Not Available]Laboratory Tests 10/26 10/26 10/26 10/26 1658 1158 0748 060 0 Chemistry Sodium (134 - 147 mEq/L) 140 Potassiu m (3.4 - 5.0 mEq/L) 4.5 Chloride (100 - 108 mEq/L) 107 Carbon Dioxide (21 - 33 mEq/l) 30 Anion Gap (0 - 20) 8 BUN (7 - 18 mg/dL) 18 Creatinine (0.6 - 1.3 mg/dL) 1.0 Glomerular Filtr Rate (80 - 90) 84.6 Glucose (70 - 110 mg/dL) 91 POC Glucose (70 - 110 MG/DL) 109 95 117 H Calcium (8.0 - 10.5 mg/dL) 8.1 Diagnosis, Assessment PlanHospital course to date:General appearance: alert, awakeHead/Eyes: atraumatic, clear cornea, EOMI, normocephalic, normal conjunctiva/sclera, normal eyelids/periorb, PERRLAENT: normal dentition, normal ear left, normal ear right, normal nose, normal pharynx, normal sinusCardiovascular: regular rate rhythmRespiratory: decreased breath sounds, clear to auscultation, no distress, no tendernessAbdomen/GI: active bowel sounds, soft Abdomen quadrants:LLQ normal bowel sounds, LLQ tenderness, LUQ normal bowel sounds, RLQ normal bowel sounds, RLQ tenderness, RUQ normal bowel soundsGenitourinary: foleyExtremities: moves all , no edema-all extremities, normal capillary refill, normal range of motion, normal sensory, normal motor functionNeuro/SKILLS TRAINER: alert, oriented X 3Skin: dry, intact, no gross abnormalitiesPsychiatry: no hallucinations, normal moodProblem List/A P: 1. Rupture of urete r Free Text DxA P NotesFree text DxA P notes:Assessment:62-year-old male with last medical history of, BPH, transferred from [place] for urology evaluation and treatment secondary to possible ruptured ureter. As per patient his abdomen was distended for at least for 2 days and hewas having difficulty urinating . Patient presented to outside facilityImaging revealed severe bilateral hydronephrosis with evidence of active urine extravasation and large amount of urine in the bladder pushing all the way up tothe abdomen. As per patient's daughter about 3 L of fluid was removed within 10minutes of Black insertion. Patient reports he has been experiencing urinary hesitancy for the past 2 to 3 years. 1. Abdominal distention, severe bilateral hydronephrosis, large amount of urinar y retention -Status post Black insertion large amount of urine was obtained2. Acute kidney injury3. Hypokalemia/hypocalcemia, hyperchloremia4. Metabolic acidosis5. Possible BPH6. Severe bilateral hydronephrosis7. Hypertension8. Schizophrenia Plan of care:Admit patient for further evaluation and treatmentUrology consultation in placeKeep Black to bedside drainageI's and O'sMonitor renal functionNephrology consultationReplace electrolytesStart tamsulosinBicarb drip startedRepeat CT of the abdomen and pelvis if neededRepeat labsFurther recommendation based on patient's clinical dmjhan0710/17/2022Vital signs within normal limitsHypokalemia 3.2, hypomagnesemia 1.50Renal function is improved, discontinue bicarb drip, continue electrolyte control-replace as needed per nephroUrology is followingContinue tamsulosinBP control-on hydralazine as needed, pain controlContinue telemetry monitoring, intake and output, fall precautionFollow-up labs, continue medications and supportive care3BP is controlledHypocalcemia 7.4, hypomagnesemia 1.5, Hypokalemia 3.1MRSA surveillance screen pending resultsUro and Nephro are followingStarted on cholecalciferol p.o., still on tamsulosinElectrolyte control- magnesium and potassium replacedFall precautionFollow-up labs, continue medications and supportive care10/19/2022Vital signs within normal limits, POC glucose is controlledHypocalcemia 7.5, hypomagnesemia 1.65MRSA surveillance screen is negativeContinue electrolyte control, replace as neededPatient is able to tolerate p.o. intakeRenal function is improved, discontinue bicarb drip today, continue BP control on IV hydralazine per nephroContinue tamsulosin p.o.Pain control, glycemic control, fall precautionFollow-up labs, continue medications and present care3Patient has no new complaints, stableHypocalcemiaBlood culture pending resultsX-ray of the chest shows mild interstitial pulmonary edema. No focal consolidation. Consultants evaluations notedElectrolyte control replace magnesiumStarte d on IV antibiotic ZosynConsult placed to Dr. Brady kilpatrick for patients UTITroponin IBlood precaution, glycemic controlFollow-up EKG, labs, continue medications and supportive care10/21/2022OC glucose is controlledD-dimer 5949Hypokalemia 3.0 , hypomagnesemia 1.50, hypocalcemia 7.3Blood culture shows no growth after 48 hoursECG: Tanya l sinus rhythmNo evidence of deep vein thrombosisI D has seen the patient. Continue empiric IV antibiotics-Zosyn, tamsulosin p.o.for now.Continue electrolyte control replace potassium and magnesiumPain control, glycemic controlFollow-up electrolytes and labs, continue medications and wbivaoz3110/22/2022Vital signs within normal limits, POC glucose is controlledHypocalcemia 7.8, hypomagnesemia 1.72N o sonographic evidence for DVTBlood culture shows no growth after 48 hoursPatient with good urine output, renal function is improved, patient will follow-up as an outpatientStill on IV antibiotic Zosyn, tamsulosin p.o.Continue electrolyte control-replace magnesiumContinue pain control, glycemic controlFollow-up labs, continue medications and supportive careJuly 2022:Continue IV antibiotic as per ID plan is to complete antibiotic on 25 October 2022We will discharge patient home after that with Black in placePlan is to follow-up with urology outpatientThis was explained to patient's daughterContinue with current medicationsFall hvwohmpzdl25/20/2023Stable, POC glucose 154Patient with Black to gravity, tolerating p.o . intakeNephro is following. On tamsulosin p.o.Continue pain control, glycemic control, fal l precautionContinue medications and present care10/25/2022Hypoglycemia 7.8Blood culture show s no growth after 5 daysPatient has no new complaintsFoley to gravity with good urine output. Nephro is followingConsultants evaluations notedstill on tamsulosin p.o.Continu e pain control, glycemic controlFall precaution, continue medications and supportive care at 2225 at 0830 RPT #:[id number] OF REPORTPRProgress [id number]:14:00G.[id number] l able for patient [id number]:25:27 2022-10-26 13:41:00 [id number]:41:00 [facility] ([facility])Nephrology Progress NoteREPORT#:[id number] REPORT STATUS: SignedDATE:10/26/22 TIME: 1341 PATIENT: MATHEW CASTILLO UNIT #: [id number]# : [id number] [address] [birth year] AGE : 62 SEX: M ATTEND: [place] Alba I [facility] AUTHOR: Carmen Kemp * ALL edits or amendments must be made on the electronic/computer document * Carmen Kemp 10/26/22 1341:SubjectiveChief complaint:Concern for ruptured ureterHPI:The patient seen and examined. Resting in bed, tolerating PO intake w/o any issue. Black to gravity, good UOP. Revie w of SystemsROS comments:A 12 point review of system was obtained and is negative unless specified in HPI Objective GeneralVS/I O:Vital Signs: Date Time Temp Pulse Resp B/P B/P Pulse O2 O2 Flow FiO2 Mean Ox Delivery Rate 10/26 0750 36.8 77 15 114/71 85.5 96 Room air 10/26 0450 37.1 74 17 125/79 94.2 96 Room air 10/26 0024 37.0 95 19 109/68 81.7 95 Room air 10/25 2038 69 17 104/64 77.4 98 Room air 10/25 1635 36.6 76 1 7 102/72 81.7 97 PATIENT WEIGHT: Weight (lb): Weight (oz): Weight (kg): 68.000 MedicationsActive Meds + DC'd Last 24 HrsCholecalciferol (VITAMIN D) 1,000 INTL.UNITS DAILY PO (CKD) Tamsulosin HCl (Flomax 0.4 mg) 0. 4 MG PC DIN PO Acetaminophen (TYLENOL) 650 MG Q4H PRN PRN PO Docusate Sodium (COLACE) 100 MG BID PRN PRN PO Haloperidol (HALDOL) 10 MG BID PO Hydralazine HCl (APRESOLINE) 10 MG Q6H PRN PRN I V Ondansetron HCl (ZOFRAN) 4 MG Q4H PRN PRN IV Benztropine Mesylate (COGENTIN) 1 MG DAILY PO Dextrose/Water (DEXTROSE 10% IN WATER) 125 ML ASDIR PRN IV (CKD) Dextrose/Water (DEXTROSE 10% IN WATER) 250 ML ASDIR PRN IV (CKD) Glucagon (GLUCAGON) 1 MG ASDIR PRN IM Insulin Human Lispro (HUMALOG) 0 AC HS SUBQ Dietitian nutritio n assessmentThe data set between the solid lines has been imported from the dietitian's assessment. _ BMI Calculated: 22.1Nutrition related diagnosis: Nutrition diagnosis details: Nutrition problem: Nutrition etiology: Nutrition signs and symptoms: Nutritio n prescription: Dietitian name: Assessment completed: _ Physical ExamGeneral appearance : alert, awake, no acute distressHead/eyes: atraumatic, clear cornea, normal conjunctiva/sclera, normocephalicENT: normal noseNeck: supple/no meningismusCardiovascular: normal heart soundsRespiratory: decreased breath sounds, wheezes, aerating well, no distressAbdomen: non-tender, softGenitourinary: urinary catheter, urineExtremities: no edema ResultsFindings/Data:Laboratory Tests 10/26 07/ 2 10/26 10/25 1158 0748 0600 1634 Chemistry [...] 110 mg/dL) 91 POC Glucose (70 - 11 0 MG/DL) 95 117 H 127 H Calcium (8.0 - 10.5 mg/dL ) 8.1 Diagnosis, Assessment PlanFree Text A P:Assessment and Plan: CHANDRA (Resolved)-Renal function improved and wnl, black to gravity, s/p bicarb gtt.-2/2 post-obstrucitve uropathy, monitor for post-obstructive diuresis. -UA, urin e lytes requested and noted, no significant proteinuria.-Per Urology note: Reportedly the patient had 3L of urine in his bladder. CT abdomen from [place] showed that the patien t has a very large distended bladder with hydroureteronephrosis and there does appear to b e maybe a fornicealrupture or some back pressure into the kidneys causing some inflammation and possibly a small amount of urine to come out through the forniceal areas that I do not see an actual ruptured ureter. The patient's creatinine has improved. His symptoms have totally resolved with catheter placement. This can be managedconservatively. The patient will follow u p as an outpatient.-Avoid nephrotoxicity monitor renal function and UOP Hypokalemia/Hypocalcemia/Hypomagnesemia-Vitamin D deficiency, vitamin D supplement.-Monitor for post-obstructive diuresis and electrolyte imbalance Urinary Retention/BPH-Black to gravity , Urology following, on Tamsulosin-Per Urology note: Reportedly the patient had 3L of urine in his bladder. CT abdomen from [place] showed that the patient has a very large distended bladder with hydroureteronephrosis and there panda s appear to be maybe a fornicealrupture or some back pressure into the kidneys causing some inflammation and possibly a small amount of urin e to come out through the forniceal areas that I d o not see an actual ruptured ureter. The patient's creatinine has improved. His symptoms have totally resolved with catheter placement. This can be managedconservatively. The patient will follow up as an outpatient. HTN-BP acceptable, monitor, on PRN IV hydralazine Schizophrenia-Seymour e medications resumed Fever-Low grade fever on 10/19/22, blood cx (10/20/22): NGTD, B/L LE venous doppler (10/21/22): Negative for DVT, on empiric abx per primary team. Discussed the plan with e patient, patient's nurse and Dr. Koehler. Toby Koehler 10/26/22 1812:Attestations Physician AttestationReviewed findings plan:Patient examined Renal function improved an d wnl, black to gravity, -2/2 post-obstrucitve uropathy, replace electrolytes as needed, S/P antibioticscontinue flomax, Agree with above A/P at 1342 at 1813 RPT #:[id number] OF REPORTPRProgress [id number]:41:00G.[id number] l able for patient [id number]:42:46 2022-10-25 21:28:00 [id number]:28:00 [facility] ([facility])Infectious Dis. Progress NoteREPORT#:[id number] REPORT STATUS: SignedDATE:10/25/22 TIME: 2127 PATIENT: MATHEW CASTILLO UNIT #: [id number]# : [id number] [address] [birth year] AGE : 62 SEX: M ATTEND: [place] Alba I [facility] AUTHOR: Skip Jaffe MD * ALL edits or amendments must be made on the electronic/computer document * SubjectiveInterna l recordPatient examined, chart reviewed, events o f last 24 hours noted. See full dictated progress note for further details. ASSESSMENT AND PLAN: Patient clinically is doing about the same. Remains awake and alert. Resting comfortably in bed. Denies any new complaints. Remains afebrile . Recent complicated urinary tract infection with urinary retention. Bilateral lower extremity venous Doppler studies negative for DVT. D-dimer is elevated. CT angiogram of chest done on October 23, 2022 showed no pulmonary embolus. Extensive colonic wall thickening of the visualized spleni c flexure compatible with colitis incompletely evaluated. Small right pleural effusion with right lower lobe atelectasis. Left upper lobe bronchiectasis. Minimal anterior pericardial effusion. Type 4 hiatal hernia measures 7.6 cm t o 6.5 cm. Gastric fundal wall thickening. Correlat e boucher with recent endoscopy is recommended to hel p exclude an infiltrating mucosal process. Repeat urinalysis done on October 19, 2022 showed 1+ leukocyte esterase, more than 50 wbc's, more rosa n 50 rbc's, trace bacteria. Bilateral lower extremity venous Doppler studies Show no evidenc e of DVT in thelower extremities. Fluctuating leukocytosis likely secondary to noninfectious causes. IV antibiotics discontinued. Closely monitor for any new nosocomial acquired infection. at 0256 RPT #:[id number] OF REPORTPRProgress [id number]:28:00G.[id number] l able for patient [id number]:57:01 2022-10-25 19:13:00 [id number]:13:00 [facility] ([facility])Nephrology Progress NoteREPORT#:[id number] REPORT STATUS: SignedDATE:10/25/22 TIME: 1912 PATIENT: MATHEW CASTILLO UNIT #: [id number]# : [id number] [address] [birth year] AGE : 62 SEX: M ATTEND: [place] Alba I [facility] AUTHOR: Toby Koehler MD * ALL edits or amendments must be made on the electronic/computer document * SubjectiveChief complaint:Concern for ruptured ureterHPI:The patient seen and examined. Resting in bed, tolerating PO intake w/o any issue. Black to gravity, good UOP. Objective GeneralVS/I O:Vital Signs: Date Time Temp Pulse Resp B/P B/P Pulse O 2 O2 Flow FiO2 Mean Ox Delivery Rate 10/25 1635 [...] Weight (lb): Weight (oz): Weight (kg): 68.000 MedicationsActive Meds + DC'd Last 24 HrsPiperacillin Sod/Tazobactam Sod (ZOSYN 3.375GM) 3.375 GM Q8H IV (DC) Sodium Chloride (SODIUM CHLORIDE 0.9% 100 ML) 100 MLCholecalciferol (VITAMIN D) 1,000 INTL.UNITS DAILY PO (CKD) Tamsulosin HCl (Flomax 0.4 mg) 0. 4 MG PC DIN PO Acetaminophen (TYLENOL) 650 MG Q4H PRN PRN PO Docusate Sodium (COLACE) 100 MG BID PRN PRN PO Haloperidol (HALDOL) 10 MG BID PO Hydralazine HCl (APRESOLINE) 10 MG Q6H PRN PRN I V Ondansetron HCl (ZOFRAN) 4 MG Q4H PRN PRN IV Benztropine Mesylate (COGENTIN) 1 MG DAILY PO Dextrose/Water (DEXTROSE 10% IN WATER) 125 ML ASDIR PRN IV (CKD) Dextrose/Water (DEXTROSE 10% IN WATER) 250 ML ASDIR PRN IV (CKD) Glucagon (GLUCAGON) 1 MG ASDIR PRN IM Insulin Human Lispr o (HUMALOG) 0 AC HS SUBQ Physical ExamGeneral appearance: alert, awake, orientedHead/eyes: atraumatic, clear cornea, normal conjunctiva/sclera, normocephalicENT: normal noseNeck: supple/no meningismusCardiovascular: normal heart soundsRespiratory: decreased breath sounds, wheezes, aerating well, no distressAbdomen: non-tender, softGenitourinary: urinary catheter, urineExtremities: no edema ResultsFindings/Data:Laboratory Tests 10/25 1634 1046 0739 0420 1951 Chemistry Sodium [...] 5.60 x10 6/uL) 4.39 Hgb (12.5 - 16. 9 g/dL) 12.6 Hct (37.5 - 50.7 %) [...] (Auto) (14.0 - 32.0 %) 10.6 L [place] % (Auto) (4.8 - 9.0 %) 4.4 L Eos % (Auto) (0.3 - 3.7 %) 2.4 Baso % (Auto) (0.0 - 2.0 %) 0.5 Neut # (Auto) (2.0 - 7.6 x10 3/uL) 12.30 H Lymph # (Auto) (1.0 - 3.8 x10 3/uL) 1.60 [place] # (Auto) (0.1 - 0.8 x10 3/uL) 0.66 Eos # (Auto) (0.0 - 0.2 x10 3/uL) 0.36 H Baso # (Auto) (0.0 - 0.2 x10 3/uL) 0.07 Abs Immat Gran (auto) (0.00 - 0.03 x10 3/uL) 0.15 H Add Manual Diff NO Immatur e Gran % (0.0 - 2.0 %) 1.0 Nucleated RBC % (0 - 0 %) 0.0 Nucleated RBCs # (Man) (0.0 - 0.1 x10 3/uL) 0.00 Diagnosis, Assessment PlanFree Text A P:Assessment and Plan: CHANDRA (Resolved)-Renal function improved and wnl, black to gravity, s/p bicarb gtt.-2/2 post-obstrucitve uropathy, monitor for post-obstructive diuresis. -UA, urin e lytes requested and noted, no significant proteinuria.-Per Urology note: Reportedly the patient had 3L of urine in his bladder. CT abdomen from [place] showed that the patien t has a very large distended bladder with hydroureteronephrosis and there does appear to b e maybe a fornicealrupture or some back pressure into the kidneys causing some inflammation and possibly a small amount of urine to come out through the forniceal areas that I do not see an actual ruptured ureter. The patient's creatinine has improved. His symptoms have totally resolved with catheter placement. This can be managedconservatively. The patient will follow u p as an outpatient.-Avoid nephrotoxicity monitor renal function and UOP Hypokalemia/Hypocalcemia/Hypomagnesemia-Vitamin D deficiency, vitamin D supplement.-Monitor for post-obstructive diuresis and electrolyte imbalance Urinary Retention/BPH-Black to gravity , Urology following, on Tamsulosin-Per Urology note: Reportedly the patient had 3L of urine in his bladder. CT abdomen from [place] showed that the patient has a very large distended bladder with hydroureteronephrosis and there panda s appear to be maybe a fornicealrupture or some back pressure into the kidneys causing some inflammation and possibly a small amount of urin e to come out through the forniceal areas that I d o not see an actual ruptured ureter. The patient's creatinine has improved. His symptoms have totally resolved with catheter placement. This can be managedconservatively. The patient will follow up as an outpatient. HTN-BP acceptable, monitor, on PRN IV hydralazine Schizophrenia-Seymour e medications resumed Fever-Low grade fever on 10/19/22, blood cx (10/20/22): NGTD, B/L LE venous doppler (10/21/22): Negative for DVT, on empiric abx per primary team. at 1914 RPT #:[id number] OF REPORTPRProgress [id number]:13:00G.[id number] katerine able for patient [id number]:14:52 2022-10-25 19:12:00 [id number]:12:00 [facility]Internal [facility] Prog. NoteREPORT#:[id number] REPORT STATUS: SignedDATE:10/25/22 TIME: 1911 PATIENT: MATHEW CASTILLO UNIT #: [id number]# : [id number] [address] [birth year] AGE : 62 SEX: M ATTEND: [place]ba I [facility] AUTHOR: Sofia Cheng GAME ENGINEER * ALL edits or amendments must be made on the electronic/computer document * SubjectiveChief complaint:Abdominal distention, hydronephrosisHPI:62-year-old male with last medical history of, BPH, transferred from [place] for urology evaluation and treatment secondary to possible ruptured ureter. As per patient his abdomen was distended for at least for 2 days and hewas having difficulty urinating . Patient presented to outside facilityImaging revealed severe bilateral hydronephrosis with evidence of active urine extravasation and large amount of urine in the bladder pushing all the way up tothe abdomen. As per patient's daughter about 3 L of fluid was removed within 10minutes of Black insertion. Patient reports he has been experiencing urinary hesitancy for the past 2 to 3 years. Denies seeing a urologist. Patient deniesfever, chills, dysuria, hematuria, or othe r associated symptoms. Patient deniesshortness of breath, chest pain, nausea, vomiting, diarrhea, constipation.Admission vital signs blood pressur e 146/78, pulse 92, respiration 18, temperature 37.1, O2 sat 96% on room air. Abnormal labs:Hemoglobin 10.9, hematocrit 31.7, potassium 2.8, chloride 114, CO2 18, BUN 41, creatinine 2.1, glucose 643Calcium 4.9. Review of SystemsAdditional notes:Constitutional: Denies: chills, fever. ENT: Denies: earache, nasal congestion, sore throat. Respiratory: Denies: hemoptysis, parox nocturnal dyspnea, pleurisy, pleuritic pain, pneumonia, SOB, wheezing. Cardiovascular: Denies: chest pain, palpitations . GI: Reports: abdominal pain. Denies: nausea, vomiting. : Reports: flank pain, urinary retention. Denies: frequency, hematuria. Musculoskeletal: Arthritis: Denies: left upper, left lower, right upper, right lower. Neuro: Denies: change in LOC, confusion, dizziness, focal weakness, gait problem, headache, lightheaded, numbness, seizure, slurred speech, spinning sensation, syncope, unable to speak, vision change. Psych: Reports: anxiety. Denies: agitation, change in mental status, confusion, depression, homicidal ideation, hostile, insomnia, stress, suicidal ideation. Objective GeneralVS/I O:Vital Signs Date Temp Pulse Resp B/P B/P Mean Pulse Ox FiO2 10/24-10/25 36.6-37.2 65-93 14-18 100-120/61-77 74.0-91.5 95-98 Last Documented: Result Date Time Pulse Ox 97 10/25 1635 B/P 102/72 10/25 1635 B/P Mean 81.7 10/25 1635 Temp 36.6 10/25 1635 Pulse 76 10/25 1635 Resp 17 10/25 1635 O2 Delivery Room air 10/25 0740 PATIENT WEIGHT: Weight (lb): Weight (oz): Weight (kg): 68.000 Medications:Active Meds + DC'd Last 24 HrsPiperacillin Sod/Tazobactam Sod (ZOSYN 3.375GM) 3.375 GM Q8H IV (DC) Sodium Chloride (SODIUM CHLORIDE 0.9% 100 ML) 100 MLCholecalciferol (VITAMIN D) 1,000 INTL.UNITS DAILY PO (CKD) Tamsulosin HCl (Flomax 0.4 mg) 0. 4 MG PC DIN PO Acetaminophen (TYLENOL) 650 MG Q4H PRN PRN PO Docusate Sodium (COLACE) 100 MG BID PRN PRN PO Haloperidol (HALDOL) 10 MG BID PO Hydralazine HCl (APRESOLINE) 10 MG Q6H PRN PRN I V Ondansetron HCl (ZOFRAN) 4 MG Q4H PRN PRN IV Benztropine Mesylate (COGENTIN) 1 MG DAILY PO Dextrose/Water (DEXTROSE 10% IN WATER) 125 ML ASDIR PRN IV (CKD) Dextrose/Water (DEXTROSE 10% IN WATER) 250 ML ASDIR PRN IV (CKD) Glucagon (GLUCAGON) 1 MG ASDIR PRN IM Insulin Human Lispr o (HUMALOG) 0 AC HS SUBQ ResultsFindings/Data:Laboratory Tests 10/25/22419:[Embedded Image Not Available]Laboratory Tests 10/25 10/25 10/25 10/25 10/24 1634 1046 0739 0420 1951 Chemistry Sodium (134 - 147 mEq/L ) 138 Potassium (3.4 - 5.0 mEq/L) 4.0 [...] 3/uL) 15.1 H RBC (4.00 - 5.60 x1 0 6/uL) 4.39 Hgb (12.5 - 16.9 g/dL) 12.6 Hct (37. 5 - 50.7 %) 39.1 MCV (81.0 - 99.0 fL) 89.1 MCH (27.0 - 33.0 pg) 28.7 MCHC (33.0 - 37.0 g/dL) 32.2 L RDW (11.5 - 14.5 %) 13.8 Plt Count (150 - 400 x10 3/uL) 421 H MPV (7.0 - 9.0 fL) 9.3 H Neut % (Auto) (56.0 - 77.0 %) 81.1 H Lymph % (Auto) (14.0 - 32.0 %) 10.6 L [place] % (Auto) (4.8 - 9.0 %) 4.4 L Eos % (Auto) (0.3 - 3.7 %) 2.4 Baso % (Auto) (0.0 - 2.0 %) 0.5 Neut # (Auto) (2.0 - 7.6 x10 3/uL) 12.30 H Lymph # (Auto) (1.0 - 3.8 x10 3/uL) 1.60 [place] # (Auto) (0.1 - 0.8 x1 0 3/uL) 0.66 Eos # (Auto) (0.0 - 0.2 x10 3/uL) 0.3 6 H Baso # (Auto) (0.0 - 0.2 x10 3/uL) 0.07 Abs Immat Gran (auto) (0.00 - 0.03 x10 3/uL) 0.15 H Add Manual Diff NO Immature Gran % (0.0 - 2.0 %) 1.0 Nucleated RBC % (0 - 0 %) 0.0 Nucleated RBCs # (Man) (0.0 - 0.1 x10 3/uL) 0.00 Diagnosis, Assessment PlanHospital course to date:General appearance: alert, awakeHead/Eyes: atraumatic, clear cornea, EOMI, normocephalic, normal conjunctiva/sclera, normal eyelids/periorb, PERRLAENT: normal dentition, normal ear left, normal ear right, normal nose, normal pharynx, normal sinusCardiovascular: regular rate rhythmRespiratory: decreased breath sounds, cielo r to auscultation, no distress, no tendernessAbdomen/GI: active bowel sounds, soft Abdomen quadrants:LLQ normal bowel sounds, LLQ tenderness, LUQ normal bowel sounds, RLQ normal bowel sounds, RLQ tenderness, RUQ normal bowel soundsGenitourinary: foleyExtremities: moves all , no edema-all extremities, normal capillary refill, normal range of motion, normal sensory, normal motor functionNeuro/SKILLS TRAINER: alert, oriented X 3Skin: dry, intact, no gross abnormalitiesPsychiatry: no hallucinations, normal moodProblem List/A P: 1. Rupture of urete r Free Text DxA P NotesFree text DxA P notes:Assessment:62-year-old male with last medical history of, BPH, transferred from [place] for urology evaluation and treatment secondary to possible ruptured ureter. As per patient his abdomen was distended for at least for 2 days and hewas having difficulty urinating . Patient presented to outside facilityImaging revealed severe bilateral hydronephrosis with evidence of active urine extravasation and large amount of urine in the bladder pushing all the way up tothe abdomen. As per patient's daughter about 3 L of fluid was removed within 10minutes of Black insertion. Patient reports he has been experiencing urinary hesitancy for the past 2 to 3 years. 1. Abdominal distention, severe bilateral hydronephrosis, large amount of urinar y retention -Status post Black insertion large amount of urine was obtained2. Acute kidney injury3. Hypokalemia/hypocalcemia, hyperchloremia4. Metabolic acidosis5. Possible BPH6. Severe bilateral hydronephrosis7. Hypertension8. Schizophrenia Plan of care:Admit patient for further evaluation and treatmentUrology consultation in placeKeep Black to bedside drainageI's and O'sMonitor renal functionNephrology consultationReplace electrolytesStart tamsulosinBicarb drip startedRepeat CT of the abdomen and pelvis if neededRepeat labsFurther recommendation based on patient's clinical pkhrtp2410/17/2022Vital signs within normal limitsHypokalemia 3.2, hypomagnesemia 1.50Renal function is improved, discontinue bicarb drip, continue electrolyte control-replace as needed per nephroUrology is followingContinue tamsulosinBP control-on hydralazine as needed, pain controlContinue telemetry monitoring, intake and output, fall precautionFollow-up labs, continue medications and supportive care3BP is controlledHypocalcemia 7.4, hypomagnesemia 1.5, Hypokalemia 3.1MRSA surveillance screen pending resultsUro and Nephro are followingStarted on cholecalciferol p.o., still on tamsulosinElectrolyte control- magnesium and potassium replacedFall precautionFollow-up labs, continue medications and supportive care10/19/2022Vital signs within normal limits, POC glucose is controlledHypocalcemia 7.5, hypomagnesemia 1.65MRSA surveillance screen is negativeContinue electrolyte control, replace as neededPatient is able to tolerate p.o. intakeRenal function is improved, discontinue bicarb drip today, continue BP control on IV hydralazine per nephroContinue tamsulosin p.o.Pain control, glycemic control, fall precautionFollow-up labs, continue medications and present care3Patient has no new complaints, stableHypocalcemiaBlood culture pending resultsX-ray of the chest shows mild interstitial pulmonary edema. No focal consolidation. Consultants evaluations notedElectrolyte control replace magnesiumStarte d on IV antibiotic ZosynConsult placed to Dr. Brady kilpatrick for patients UTITroponin IBlood precaution, glycemic controlFollow-up EKG, labs, continue medications and supportive care3POC glucose is controlledD-dimer 5949Hypokalemia 3.0 , hypomagnesemia 1.50, hypocalcemia 7.3Blood culture shows no growth after 48 hoursECG: Tanya l sinus rhythmNo evidence of deep vein thrombosisI D has seen the patient. Continue empiric IV antibiotics-Zosyn, tamsulosin p.o.for now.Continue electrolyte control replace potassium and magnesiumPain control, glycemic controlFollow-up electrolytes and labs, continue medications and zeciixs5010/22/2022Vital signs within normal limits, POC glucose is controlledHypocalcemia 7.8, hypomagnesemia 1.72N o sonographic evidence for DVTBlood culture shows no growth after 48 hoursPatient with good urine output, renal function is improved, patient will follow-up as an outpatientStill on IV antibiotic Zosyn, tamsulosin p.o.Continue electrolyte control-replace magnesiumContinue pain control, glycemic controlFollow-up labs, continue medications and supportive careJuly 2022:Continue IV antibiotic as per ID plan is to complete antibiotic on 25 October 2022We will discharge patient home after that with Black in placePlan is to follow-up with urology outpatientThis was explained to patient's daughterContinue with current medicationsFall lnmoyaqtek97/20/2023Stable, POC glucose 154Patient with Black to gravity, tolerating p.o . intakeNephro is following. On tamsulosin p.o.Continue pain control, glycemic control, fal l precautionContinue medications and present care10/25/2022Hypoglycemia 7.8Blood culture show s no growth after 5 daysPatient has no new complaintsFoley to gravity with good urine output. Nephro is followingConsultants evaluations notedstill on tamsulosin p.o.Continu e pain control, glycemic controlFall precaution, continue medications and supportive care at 2224 at 0830 RPT #:[id number] OF REPORTPRProgress [id number]:12:00G.[id number] l able for patient jvtdDTIIOGAWRZHRPV0454-48-86I11:24:26 2022-10-25 10:44:00 [id number] [place] [id number] PATIENT NAME: MATHEW CASTILLO ADMIT DATE: 10/16/22ACCOUN T NO: [id number] ROOM NO: [id number] AGE: 62 REPORT TYPE: PROGRESS NOT E SEX: M ADMITTING PHYSICIAN:Salinas Alba MD ATTENDING PHYSICIAN:Salinas Alba MD DATE: 10/24/2022 SUBJECTIVE: The patient examined. Chart reviewed. Events of last 24 hoursnoted. Th e patient clinically is doing fair. He remains awake and alert.Denies any new complaints. Remains afebrile. No nausea, vomiting reported. Nodiarrhea reported. He is ambulating within the room. CURRENT MEDICATIONS: Include benztropine, cholecalciferol, lispro insulin,tamsulosin, haloperidol, Zosyn IV, Tylenol p.r.n., docusate sodium p.r.n.,glucagon p.r.n., hydrocodone bitartrate p.r.n., hydralazine p.r.n., ondansetronp.r.n. PHYSICAL EXAMINATION:GENERAL: The patient is resting comfortably in bed. He is awake and alert,does not appear to be toxic, panda s not appear to be in any acute distress.VITAL SIGNS: Temperature maximum in last 24 hours is 37.0 degrees Celsius.Current temperature is 37.1 degrees Celsius, blood pressure is 118/70,respirations 16 per minute, pulse is 80 per minute. The patient's weight isaround 68 kg.HEENT: Head is atraumatic and normocephalic. Pupils are equal, round andreacting to light and accommodation bilaterally. Extraocular movements areintact. Oropharynx is clear. Oral hygiene is fair.NECK: Supple. JVD is absent. No carotid bruit, thyromegaly, or cervicallymphadenopathy.LUNGS: There is fair air entry bilaterally.CARDIOVASCULAR: S1, S2 audible . No murmur, gallop, S3 or S4 appreciated.ABDOMEN: Soft and slightly bulging. The patient has mild suprapubic areatenderness. No hepatosplenomegaly . Bowel sounds are normoactive. Has minimaltenderness at the renal angles bilaterally.GENITOURINARY: The patient has indwelling Black catheter in place. Thecatheter appears to be working fine and has clear urine and being drained intothe bag.EXTREMITIES: Both calves are soft. No calf tenderness. No pedal edema.Peripheral pulses are faintly palpable bilaterally.SKIN: The patient's peripheral IV sites are clean without any evidence ofphlebitis . The lower abdominal discomfort has improved. He has an indwelling Black catheter in place. LABORATORY DATA: No new laboratory studies available to review for today. Thepatient's bloo d cultures x2 done on October 20 are negative so fa r at 4 days ofincubation. ASSESSMENT AND PLAN: The patient with multiple comorbidities including PATIENT NAME: MATHEW CASTILLO prostatic symptoms for over 2 years , was admitted through [facility] hospital in [place] with urinary retention of 2 days' durationand was found to have some extravasation of urine in the peritoneal cavity. Thepatient was treated with IV antibiotics and had a Black catheter inserted andabout 3 liters of urine was drained and the Black was left in place and [facility].The patient was evaluated by Dr. Dave Jones and is being managedconservativel y at the present time. The patient initially showe d improvement inhis condition and subsequently he had developed low-grade temperature and markedleukocytosis of around 19,000. He had his antibiotics changed to IV Zosyn.Clinically, he never looked toxic and there is a possibility that fever andleukocytosis could have been secondary to noninfectious causes. He had furtherworkup done and was found to have elevate d D-dimer; however, bilateral lowerextremity venou s Doppler studies were negative for deep vein thrombosis. Thepatient otherwise remains hemodynamically stable and he is making progress,continues to be afebrile. He is due to finish his antibiotics tomorrow. Wewill for now, keep him on the antibiotic and if his blood cultures are negativeafter 5 days of incubation, then we will consider discontinuation of hisantibiotics tomorrow. Discussed with the patient's nursing staff.Dictated By: LOCO Kellyate Dictated: 10/25/2022 10:44:58Date Transcribed: 10/25/2022 11:24:45ESTRADA/Yulisa #: [id number] ID: [id number] Authenticated and Edited by Skip Jaffe MD On 11/02/22 2:23:50 A M at 0323 PATIENT NAME: MATHEW CASTILLO [id number]:24:00G.[id number] a ble for patient [id number]:24:12 2022-10-24 22:59:00 [id number]:59:00 [facility] Prog. NoteREPORT#:[id number] REPORT STATUS: SignedDATE:10/24/22 TIME: 2258 PATIENT: MATHEW CASTILLO UNIT #: [id number]# : [id number] [address] [birth year] AGE : 62 SEX: M ATTEND: Salinas Alba I [facility] AUTHOR: Sofia Cheng GAME ENGINEER * ALL edits or amendments must be made on the electronic/computer document * SubjectiveChief complaint:Abdominal distention, hydronephrosisHPI:62-year-old male with last medical history of, BPH, transferred from [place] for urology evaluation and treatment secondary to possible ruptured ureter. As per patient his abdomen was distended for at least for 2 days and hewas having difficulty urinating . Patient presented to outside facilityImaging revealed severe bilateral hydronephrosis with evidence of active urine extravasation and large amount of urine in the bladder pushing all the way up tothe abdomen. As per patient's daughter about 3 L of fluid was removed within 10minutes of Black insertion. Patient reports he has been experiencing urinary hesitancy for the past 2 to 3 years. Denies seeing a urologist. Patient deniesfever, chills, dysuria, hematuria, or othe r associated symptoms. Patient deniesshortness of breath, chest pain, nausea, vomiting, diarrhea, constipation.Admission vital signs blood pressur e 146/78, pulse 92, respiration 18, temperature 37.1, O2 sat 96% on room air. Abnormal labs:Hemoglobin 10.9, hematocrit 31.7, potassium 2.8, chloride 114, CO2 18, BUN 41, creatinine 2.1, glucose 643Calcium 4.9. Review of SystemsAdditional notes:Constitutional: Denies: chills, fever. ENT: Denies: earache, nasal congestion, sore throat. Respiratory: Denies: hemoptysis, parox nocturnal dyspnea, pleurisy, pleuritic pain, pneumonia, SOB, wheezing. Cardiovascular: Denies: chest pain, palpitations . GI: Reports: abdominal pain. Denies: nausea, vomiting. : Reports: flank pain, urinary retention. Denies: frequency, hematuria. Musculoskeletal: Arthritis: Denies: left upper, left lower, right upper, right lower. Neuro: Denies: change in LOC, confusion, dizziness, focal weakness, gait problem, headache, lightheaded, numbness, seizure, slurred speech, spinning sensation, syncope, unable to speak, vision change. Psych: Reports: anxiety. Denies: agitation, change in mental status, confusion, depression, homicidal ideation, hostile, insomnia, stress, suicidal ideation. Objective GeneralVS/I O:Laboratory Tests 10/23/22622:[Embedded Image Not Available]Chemistry: 10/24 10/24 10/24 1951 1652 0721 Chemistry POC Glucose (70 - 110 MG/DL) 154 H 73 87 Home Medications: Medication Dose/Rte/Freq Days Qty Entered Last Max Daily Dose Reviewed BENZTROPINE 1 MG PO DAILY 10/16/22 10/16/22 Strength: 0.5 M G TAB 0923 0925 HALOPERIDOL (HALDOL) 10 MG PO BID 10/16/22 10/16/22 Strength: 10 MG TAB 0925 0925 Current Hospital Medications:Anti-Infective Agents Sig/Mark Start time Last Medication Dose Route Stop Time Status Admin Piperacillin Sod/ 3.375 GM Q8H 10/20 0100 AC 10/24 Tazobactam Sod IV 10/25 0059 1710 (ZOSYN 3.375GM) Sodium Chloride 100 ML (SODIUM CHLORIDE 0.9% 100 ML) Autonomic Drugs Sig/Mark Start time Last Medication Dose Route Stop Time Status Admin Tamsulosin HCl 0.4 MG PC DIN 10/16 1800 AC 10/24 (Flomax 0.4 mg) PO 11/15 1759 1710 Benztropine Mesylate 1 MG DAILY 10/16 1330 AC 10/24 (COGENTIN) PO 11/15 1329 0942 Cardiovascular Drugs Sig/Mark Start time Last Medication Dose Route Stop Time Status Admin Hydralazine HCl 10 MG Q6H PRN PRN 10/16 1345 AC (APRESOLINE) IV 11/15 1344 Central Nervous System Agents Sig/Mark Start time Last Medication Dose Route Stop Time Status Admin Acetaminophen 650 MG Q4H PRN PRN 10/16 1345 AC 10/20 (TYLENOL) PO 11/15 1344 0120 Haloperidol 10 MG BID 10/16 1345 AC 10/24 (HALDOL) PO 11/15 1330 2228 Electrolytic, Caloric, And Scott Sig/Mark Start time Last Medication Dose Route Stop Time Status Admin Dextrose/Water 125 ML ASDIR PRN 10/16 1130 CKD (DEXTROSE 10% IN IV 11/15 1129 WATER) Dextrose/Water 250 ML ASDIR PRN 10/16 1130 CKD (DEXTROSE 10% IN IV 11/15 1129 WATER) Gastrointestinal Drugs Sig/Mark Start time Last Medication Dose Route Stop Time Status Admin Docusate Sodium 100 MG BID PRN PRN 10/16 1345 AC (COLACE) PO 11/15 1344 Ondansetron HCl 4 MG Q4H PRN PRN 10/16 1345 AC (ZOFRAN) IV 11/15 1344 Hormones And Synthetic Substit Sig/Mark Start time Last Medication Dose Route Stop Time Status Admin Glucagon 1 MG ASDIR PRN 10/16 1130 AC (GLUCAGON) IM 11/15 1129 Insulin Human Lispro 0 AC HS 10/16 1130 AC 10/24 (HUMALOG) SUBQ 11/15 1129 2228 Vitamins Sig/Mark Start time Last Medication Dose Route Stop Time Status Admin Cholecalciferol 1,000 INTL.UNITS DAILY 10/18 090 0 CKD 10/24 (VITAMIN D) PO 11/17 0859 0942 Vital Signs: Date Time Temp Pulse Resp B/P B/P Pulse O 2 O2 Flow FiO2 Mean Ox Delivery Rate 10/24 1950 37.1 72 14 111/65 80.3 96 10/24 1656 36.8 64 15 107/68 80.8 97 Nasal cannula 10/24 1120 37.0 77 16 115/72 86.5 99 Room air 10/24 0348 36.6 73 16 109/69 82.0 97 Room air 10/23 2344 37.0 74 16 111/71 84.0 98 Room air 10/24 0700 10/23 2300 10/23 1500 Intake Total 720 250 Output Total 235 0 Balance -1630 250 Intake, Oral 720 250 Number 0 Bowel Movements Output, Urine 2350 Current Medications Sig/Mark Start time Last Medication Dose Route Stop Time Status Admin Piperacillin Sod/ 3.375 GM Q8H 10/20 0100 AC 10/24 Tazobactam Sod IV 10/25 0059 1710 Sodium Chloride 100 ML Cholecalciferol 1,000 INTL.UNITS DAILY 10/18 090 0 CKD 10/24 PO 11/17 0859 0942 Tamsulosin HCl 0.4 MG PC DIN 10/16 1800 AC 10/24 PO 11/15 1759 1710 Acetaminophen 650 MG Q4H PRN PRN 10/16 1345 AC 10/20 PO 11/15 1344 0120 Docusate Sodium 100 MG BID PRN PRN 10/16 1345 AC PO 11/15 1344 Haloperidol 10 MG BID 10/16 1345 AC 10/24 PO 11/15 1330 2228 Hydralazine HCl 10 MG Q6H PRN PRN 10/16 1345 AC IV 11/15 1344 Ondansetron HCl 4 MG Q4H PRN PRN 10/16 1345 AC IV 11/15 1344 Benztropine Mesylate 1 MG DAILY 10/16 1330 AC 10/24 PO 11/15 1329 0942 Dextrose/Water 125 ML ASDIR PRN 10/16 1130 CKD IV 11/15 1129 Dextrose/Water 250 ML ASDIR PRN 10/16 1130 CKD I V 11/15 1129 Glucagon 1 MG ASDIR PRN 10/16 1130 AC IM 11/15 1129 Insulin Human Lispro 0 AC HS 10/16 1130 AC 10/24 SUBQ 11/15 1129 2228 Recent Impressions-Last 72 HrsCAT SCAN - CTA CHEST FOR PE 10/23 1724 Report Impression - Status: SIGNED Entered: 10/23/20222012 IMPRESSION: 1. N o pulmonary embolus. 2. Extensive colonic wall thickening of the visualized splenic flexure compatible with colitis incompletely evaluated. 3. Small right pleural effusion with right lower lobe atelectasis. 4. Left upper lobe bronchiectasis. 5. Minimal anterior pericardial effusion. 6. Type 4 hiatal hernia measures 7.6 c m X 6.5 cm. 7. Gastric fundal wall thickening, correlation with recent endoscopy is recommended to help exclude an infiltrating mucosal process. Impression By: [email or web address] - Hayden Rg M.D. Vital Signs Date Temp Pulse Resp B/P B/P Mean Pulse Ox FiO2 10/23-10/24 36.6-37.1 64-77 14-16 107-115/65-72 80.3-86.5 96-99 Last Documented: Result Date Time Pulse Ox 96 10/24 1949 B/P 111/65 10/24 1949 B/P Mean 80.3 10/24 1949 Temp 37.1 10/24 1949 Pulse 72 10/24 1949 Resp 14 10/06 0 1949 O2 Delivery Nasal cannula 10/24 1656 24 teo r I O ending at 0700: 10/24 0700 10/23 1900 Intake Total 970 Output Total 2350 Balance -1380 Intake , Oral 970 Number 0 Bowel Movements Output, Urine 2350 PATIENT WEIGHT: Weight (lb): Weight (oz): Weight (kg): 68.000 Diagnosis, Assessment PlanHospital course to date:General appearance: alert, awakeHead/Eyes: atraumatic, clear cornea, EOMI, normocephalic, normal conjunctiva/sclera, normal eyelids/periorb, PERRLAENT: normal dentition, normal ear left, normal ear right, normal nose, normal pharynx, normal sinusCardiovascular: regular rate rhythmRespiratory: decreased breath sounds, cielo r to auscultation, no distress, no tendernessAbdomen/GI: active bowel sounds, soft Abdomen quadrants:LLQ normal bowel sounds, LLQ tenderness, LUQ normal bowel sounds, RLQ normal bowel sounds, RLQ tenderness, RUQ normal bowel soundsGenitourinary: foleyExtremities: moves all , no edema-all extremities, normal capillary refill, normal range of motion, normal sensory, normal motor functionNeuro/SKILLS TRAINER: alert, oriented X 3Skin: dry, intact, no gross abnormalitiesPsychiatry: no hallucinations, normal moodProblem List/A P: 1. Rupture of urete r Free Text DxA P NotesFree text DxA P notes:Assessment:62-year-old male with last medical history of, BPH, transferred from [place] for urology evaluation and treatment secondary to possible ruptured ureter. As per patient his abdomen was distended for at least for 2 days and hewas having difficulty urinating . Patient presented to outside facilityImaging revealed severe bilateral hydronephrosis with evidence of active urine extravasation and large amount of urine in the bladder pushing all the way up tothe abdomen. As per patient's daughter about 3 L of fluid was removed within 10minutes of Black insertion. Patient reports he has been experiencing urinary hesitancy for the past 2 to 3 years. 1. Abdominal distention, severe bilateral hydronephrosis, large amount of urinar y retention -Status post Black insertion large amount of urine was obtained2. Acute kidney injury3. Hypokalemia/hypocalcemia, hyperchloremia4. Metabolic acidosis5. Possible BPH6. Severe bilateral hydronephrosis7. Hypertension8. Schizophrenia Plan of care:Admit patient for further evaluation and treatmentUrology consultation in placeKeep Black to bedside drainageI's and O'sMonitor renal functionNephrology consultationReplace electrolytesStart tamsulosinBicarb drip startedRepeat CT of the abdomen and pelvis if neededRepeat labsFurther recommendation based on patient's clinical oxyomk2910/17/2022Vital signs within normal limitsHypokalemia 3.2, hypomagnesemia 1.50Renal function is improved, discontinue bicarb drip, continue electrolyte control-replace as needed per nephroUrology is followingContinue tamsulosinBP control-on hydralazine as needed, pain controlContinue telemetry monitoring, intake and output, fall precautionFollow-up labs, continue medications and supportive care10/18/2022P is controlledHypocalcemia 7.4, hypomagnesemia 1.5, Hypokalemia 3.1MRSA surveillance screen pending resultsUro and Nephro are followingStarted on cholecalciferol p.o., still on tamsulosinElectrolyte control- magnesium and potassium replacedFall precautionFollow-up labs, continue medications and supportive care10/19/2022Vital signs within normal limits, POC glucose is controlledHypocalcemia 7.5, hypomagnesemia 1.65MRSA surveillance screen is negativeContinue electrolyte control, replace as neededPatient is able to tolerate p.o. intakeRenal function is improved, discontinue bicarb drip today, continue BP control on IV hydralazine per nephroContinue tamsulosin p.o.Pain control, glycemic control, fall precautionFollow-up labs, continue medications and present care10/20/2022atient has no new complaints, stableHypocalcemiaBlood culture pending resultsX-ray of the chest shows mild interstitial pulmonary edema. No focal consolidation. Consultants evaluations notedElectrolyte control replace magnesiumStarte d on IV antibiotic ZosynConsult placed to Dr. Brady kilpatrick for patients UTITroponin IBlood precaution, glycemic controlFollow-up EKG, labs, continue medications and supportive care3POC glucose is controlledD-dimer 5949Hypokalemia 3.0 , hypomagnesemia 1.50, hypocalcemia 7.3Blood culture shows no growth after 48 hoursECG: Tanya l sinus rhythmNo evidence of deep vein thrombosisI D has seen the patient. Continue empiric IV antibiotics-Zosyn, tamsulosin p.o.for now.Continue electrolyte control replace potassium and magnesiumPain control, glycemic controlFollow-up electrolytes and labs, continue medications and germksq4710/22/2022Vital signs within normal limits, POC glucose is controlledHypocalcemia 7.8, hypomagnesemia 1.72N o sonographic evidence for DVTBlood culture shows no growth after 48 hoursPatient with good urine output, renal function is improved, patient will follow-up as an outpatientStill on IV antibiotic Zosyn, tamsulosin p.o.Continue electrolyte control-replace magnesiumContinue pain control, glycemic controlFollow-up labs, continue medications and supportive careJuly 2022:Continue IV antibiotic as per ID plan is to complete antibiotic on 25 October 2022We will discharge patient home after that with Black in placePlan is to follow-up with urology outpatientThis was explained to patient's daughterContinue with current medicationsFall njsrvbxcvi13/20/2023Stable, POC glucose 154Patient with Black to gravity, tolerating p.o . intakeNephro is following. On tamsulosin p.o.Continue pain control, glycemic control, fal l precautionContinue medications and present care at 2223 at 0830 RPT #:[id number] OF REPORTPRProgress ykme0254-20-13D41:59:00G.[id number] katerine able for patient [id number]:24:17 2022-10-24 19:41:00 [id number]:41:00 [facility] ([facility])Infectious Dis. Progress NoteREPORT#:[id number] REPORT STATUS: SignedDATE:10/24/22 TIME: 1940 PATIENT: MATHEW CASTILLO UNIT #: [id number]# : [id number] ROOM[facility]BED[facility]DOB: [birth year] AGE : 62 SEX: M ATTEND: Salinas Alba AUTHOR: Skip Jaffe MD * ALL edits or amendments must be made on the electronic/computer document * SubjectiveInterna l recordPatient examined, chart reviewed, events o f last 24 hours noted. See full dictated progress note for further details. ASSESSMENT AND PLAN: N o new development. Patient remains awake and comfortable. No new issues reported. Continues t o be afebrile. Recurrent fever and leukocytosis improved. Recent complicated urinary tract infection with urinary retention. Bilateral lowe r extremity venous Doppler studies negative for DVT. D-dimer is elevated. CT angiogram of chest done on October 23, 2022 showed no pulmonary embolus. Extensive colonic wall thickening of th e visualized splenic flexure compatible with colitis incompletely evaluated. Small right pleural effusion with right lower lobe atelectasis. Left upper lobe bronchiectasis. Minimal anterior pericardial effusion. Type 4 hiatal hernia measures 7.6 cm to 6.5 cm. Gastric fundal wall thickening. Correlate boucher with recent endoscopy is recommended to help exclude an infiltrating mucosal process. Repeat urinalysis done on October 19, 2022 showed 1+ leukocyte esterase, more than 50 wbc's, more rosa n 50 rbc's, trace bacteria. Repeat CBC with manual differentia done today shows no significant left shift with 8% band forms. Bilateral lower extremity venous Doppler studies Show no evidenc e of DVT in thelower extremities. DVT prophylaxis as per primary team. Continue empiric IV antibiotics for now until October 25, 2022. Monitor patient closely for any diarrhea. at 0316 [facility] #:[id number] OF REPORTPRProgress [id number]:41:00G.[id number] l able for patient [id number]:16:37 2022-10-24 19:12:00 [id number] [facility] [place] [address] PATIENT NAME: MATHEW CASTILLO ADMIT DATE: 10/16/22ACCOUN T NO: [id number] ROOM NO: [facility] AGE: 62 REPORT TYPE: PROGRESS NOT E SEX: M ADMITTING PHYSICIAN:Salinas Alba MD ATTENDING PHYSICIAN:Salinas Alba MD DATE: 10/23/2022 SUBJECTIVE: The patient examined. Chart reviewed. Events of last 24 hoursnoted. Th e patient clinically is not much changed. Remains awake and alert.No new issues reported. Remains afebrile. No nausea or vomiting reported. Nodiarrhea reported. The patient clinically remains hemodynamically otherwisestable. CURRENT MEDICATIONS: Include benztropine, cholecalciferol, lispro insulin,tamsulosin, haloperidol, Zosyn IV, Tylenol p.r.n., docusate sodium p.r.n.,glucagon p.r.n., hydrocodone bitartrate p.r.n., hydralazine p.r.n., ondansetronp.r.n. PHYSICAL EXAMINATION:GENERAL: The patient is resting comfortably in bed. He is awake and alert,does not appear to be toxic, panda s not appear to be in any acute distress.VITAL SIGNS: Temperature maximum in last 24 hours is 37.0 degrees Celsius.Current temperature is 37.1 degrees Celsius, blood pressure is 118/70,respirations 16 per minute, pulse is 80 per minute. The patient's weight isaround 68 kg.HEENT: Head is atraumatic and normocephalic. Pupils are equal, round andreacting to light and accommodation bilaterally. Extraocular movements areintact. Oropharynx is clear. Oral hygiene is fair.NECK: Supple. JVD is absent. No carotid bruit, thyromegaly, or cervicallymphadenopathy.LUNGS: There is fair air entry bilaterally.CARDIOVASCULAR: S1, S2 audible . No murmur, gallop, S3 or S4 appreciated.ABDOMEN: Soft and slightly bulging. The patient has mild suprapubic areatenderness. No hepatosplenomegaly . Bowel sounds are normoactive. Has minimaltenderness at the renal angles bilaterally.GENITOURINARY: The patient has indwelling Black catheter in place. Thecatheter appears to be working fine and has clear urine and being drained intothe bag.EXTREMITIES: Both calves are soft. No calf tenderness. No pedal edema.Peripheral pulses are faintly palpable bilaterally.SKIN: The patient's peripheral IV sites are clean without any evidence ofphlebitis . The lower abdominal discomfort has improved. LABORATORY DATA: Serum sodium is 138, potassium 3.8, chloride 107, oeielfoyykr00, glucose 98. BU N 11, creatinine 1.0, estimated GFR is 85, calcium is 7.6,magnesium 1.53. CT angiogram of chest wit h PE protocol done today shows no evidence of pulmonary PATIENT NAME: MATHEW CASTILLO embolism, extensive colonic wall thickening of the visualized spleni c flexure.Blood cultures are negative so far at 3 days of incubation. ASSESSMENT AND PLAN: The patient with multiple medical problems was [place]admitted [place] where he had presented with urinaryretention. Th e patient was found to have 3 liters of urine in the bladder. Hehad a Black catheter inserted and subsequently was transferred to [facility] urology [facility]. He was initially treated withIV ceftriaxone, but more recently, he started to have fever and highleukocytosis. He had blood cultures done and was empirically switched to IVZosyn. His blood cultures so far have been negative. Clinically, he has madeprogress. His D-dimer was found to be elevated; however, bilateral lowerextremity venous Doppler studies were negative and his CT of chest with PEprotoco l is also negative. The patient clinically remains hemodynamicallystable. He will be continued on I V Zosyn until 10/25/2022. Discussed with thepatient's nursing staff.Dictated By: Elizabeth Kelly Dictated: 10/24/2022 19:12:07Date Transcribed: 10/24/2022 19:51:44HA/Concepcion #: [id number] ID: [id number] Authenticated and Edited by Skip Jaffe MD On 11/02/22 2:23:34 A M at 0323 PATIENT NAME: MATHEW CASTILLO [id number]:51:00G.[id number] a ble for patient [id number]:24:12 2022-10-24 16:08:00 [id number]:08:00 [facility] ([facility] Progress NoteREPORT#:[id number] REPORT STATUS: SignedDATE:10/24/22 TIME: 1607 PATIENT: MATHEW CASTILLO UNIT #: [id number]# : [id number] [address] [birth year] AGE : 62 SEX: M ATTEND: Salinas Alba I [facility] AUTHOR: Carmen Kemp * ALL edits or amendments must be made on the electronic/computer document * Carmen Kemp 10/24/22 1608:SubjectiveChief complaint:Concern for ruptured ureterHPI:The patient seen and examined. Resting in bed, tolerating PO intake w/o any issue. Black to gravity, good UOP. Revie w of SystemsROS comments:A 12 point review of systems obtained and is negative unless specifie d in HPI Objective GeneralVS/I O:Vital Signs: Date Time Temp Pulse Resp B/P B/P Pulse O2 O2 Flow FiO2 Mean Ox Delivery Rate 10/24 1656 36.8 64 1 5 107/68 80.8 97 Nasal cannula 10/24 1120 [...] Output Total 2350 Balance -1380 Intake, Oral 97 0 Number 0 Bowel Movements Output, Urine 2350 PATIENT WEIGHT: Weight (lb): Weight (oz): Weight (kg): 68.000 MedicationsActive Meds + DC'd Last 24 HrsPiperacillin Sod/Tazobactam Sod (ZOSYN 3.375GM) 3.375 GM Q8H IV Sodium Chloride (SODIUM CHLORIDE 0.9% 100 ML) 100 MLCholecalciferol (VITAMIN D) 1,000 INTL.UNITS DAILY PO (CKD) Tamsulosin HCl (Flomax 0.4 mg) 0.4 MG PC DIN PO Acetaminophen (TYLENOL) 650 MG Q4H PRN PRN PO Docusate Sodium (COLACE) 100 MG BID PRN PRN PO Haloperidol (HALDOL) 10 MG BID PO Hydralazine HCl (APRESOLINE) 10 MG Q6H PRN PRN IV Ondansetro n HCl (ZOFRAN) 4 MG Q4H PRN PRN IV Benztropine Mesylate (COGENTIN) 1 MG DAILY PO Dextrose/Water (DEXTROSE 10% IN WATER) 125 ML ASDIR PRN IV (CKD ) Dextrose/Water (DEXTROSE 10% IN WATER) 250 ML ASDIR PRN IV (CKD) Glucagon (GLUCAGON) 1 MG ASDI R PRN IM Insulin Human Lispro (HUMALOG) 0 AC HS SUBQ Dietitian nutrition assessmentThe data set between the solid lines has been imported from the dietitian's assessment. _ BMI Calculated: 22.1Nutrition related diagnosis: Nutrition diagnosis details: Nutrition problem: Nutrition etiology: Nutrition signs and symptoms: Nutritio n prescription: Dietitian name: Assessment completed: _ Physical ExamGeneral appearance : alert, awake, no acute distressHead/eyes: atraumatic, clear cornea, normal conjunctiva/sclera, normocephalicENT: normal noseNeck: supple/no meningismusCardiovascular: normal heart soundsRespiratory: decreased breath sounds, wheezes, aerating well, no distressAbdomen: non-tender, softGenitourinary: urinary catheter, urineExtremities: no edema ResultsFindings/Data:Laboratory Tests 10/24 10/23 0721 6 Chemistry POC Glucose (70 - 110 MG/DL) 87 139 H Diagnosis, Assessment PlanFree Text A P:Assessment and Plan: CHANDRA (Resolved)-Renal function improved and wnl, fole y to gravity, s/p bicarb gtt.-2/2 post-obstrucitve uropathy, monitor for post-obstructive diuresis. -UA, urine lytes requested and noted, no significant proteinuria.-Per Urology note: Reportedly the patient had 3L of urine in his bladder. CT abdomen from [place] showed rosa t the patient has a very large distended bladder with hydroureteronephrosis and there does appear to be maybe a fornicealrupture or some back pressure into the kidneys causing some inflammation and possibly a small amount of urin e to come out through the forniceal areas that I d o not see an actual ruptured ureter. The patient's creatinine has improved. His symptoms have totally resolved with catheter placement. This can be managedconservatively. The patient will follow up as an outpatient.-Avoid nephrotoxicity monitor renal function and UOP Hypokalemia/Hypocalcemia/Hypomagnesemia-Vitamin D deficiency, vitamin D supplement.-Monitor for post-obstructive diuresis and electrolyte imbalance Urinary Retention/BPH-Black to gravity , Urology following, on Tamsulosin-Per Urology note: Reportedly the patient had 3L of urine in his bladder. CT abdomen from [place] showed that the patient has a very large distended bladder with hydroureteronephrosis and there panda s appear to be maybe a fornicealrupture or some back pressure into the kidneys causing some inflammation and possibly a small amount of urin e to come out through the forniceal areas that I d o not see an actual ruptured ureter. The patient's creatinine has improved. His symptoms have totally resolved with catheter placement. This can be managedconservatively. The patient will follow up as an outpatient. HTN-BP acceptable, monitor, on PRN IV hydralazine Schizophrenia-Seymour e medications resumed Fever-Low grade fever on 10/19/22, blood cx (10/20/22): NGTD, B/L LE venous doppler (10/21/22): Negative for DVT, on empiric abx per primary team. Discussed the plan with e patient, patient's nurse, and . Toby Koehler 10/24/222124:Attestations Physician AttestationReviewed findings plan:Patient examined Renal function improved an d wnl, black to gravity, -2/2 post-obstrucitve uropathy, replace electrolytes as needed, emperi c antibiotics per admitting team, agree with above A/P at 1740 at 2125 RPT #:[id number] OF REPORTPRProgress [id number]:08:00G.[id number] l able for patient [id number]:40:54 2022-10-23 21:33:00 [id number]:33:00 [facility] ([facility])Internal Medicine Prog. NoteREPORT#:[id number] REPORT STATUS: SignedDATE:10/23/22 TIME: 2132 PATIENT: MATHEW CASTILLO UNIT #: [id number]#: [id number] ROOM/BED: 6630-1DOB: [birth year] AGE: 62 SEX: M ATTEND: Salinas Alba I [facility] AUTHOR: Sofia Cheng NP * ALL edits or amendments mus t be made on the electronic/computer document * SubjectiveChief complaint:Abdominal distention, hydronephrosisHPI:62-year-old male with last medical history of, BPH, transferred from [place] for urology evaluation and treatment secondary to possible ruptured ureter. As per patient his abdomen was distended for at least for 2 days and hewas having difficulty urinating . Patient presented to outside facilityImaging revealed severe bilateral hydronephrosis with evidence of active urine extravasation and large amount of urine in the bladder pushing all the way up tothe abdomen. As per patient's daughter about 3 L of fluid was removed within 10minutes of Black insertion. Patient reports he has been experiencing urinary hesitancy for the past 2 to 3 years. Denies seeing a urologist. Patient deniesfever, chills, dysuria, hematuria, or othe r associated symptoms. Patient deniesshortness of breath, chest pain, nausea, vomiting, diarrhea, constipation.Admission vital signs blood pressur e 146/78, pulse 92, respiration 18, temperature 37.1, O2 sat 96% on room air. Abnormal labs:Hemoglobin 10.9, hematocrit 31.7, potassium 2.8, chloride 114, CO2 18, BUN 41, creatinine 2.1, glucose 643Calcium 4.9. Review of SystemsAdditional notes:Constitutional: Denies: chills, fever. ENT: Denies: earache, nasal congestion, sore throat. Respiratory: Denies: hemoptysis, parox nocturnal dyspnea, pleurisy, pleuritic pain, pneumonia, SOB, wheezing. Cardiovascular: Denies: chest pain, palpitations . GI: Reports: abdominal pain. Denies: nausea, vomiting. : Reports: flank pain, urinary retention. Denies: frequency, hematuria. Musculoskeletal: Arthritis: Denies: left upper, left lower, right upper, right lower. Neuro: Denies: change in LOC, confusion, dizziness, focal weakness, gait problem, headache, lightheaded, numbness, seizure, slurred speech, spinning sensation, syncope, unable to speak, vision change. Psych: Reports: anxiety. Denies: agitation, change in mental status, confusion, depression, homicidal ideation, hostile, insomnia, stress, suicidal ideation. Objective GeneralVS/I O:Laboratory Tests 10/23 1622 1133 0825 0623 Chemistry Sodium (134 - 147 mEq/L) 138 Potassium (3.4 - 5. 0 mEq/L) 3.8 Chloride (100 - 108 mEq/L) 107 Carbo n Dioxide (21 - 33 mEq/l) 29 Anion Gap (0 - 20) 6 BUN (7 - 18 mg/dL) 11 Creatinine (0.6 - 1.3 mg/dL) 1.0 Glomerular Filtr Rate (80 - 90) 84.6 Glucose (70 - 110 mg/dL) 98 POC Glucose (70 - 11 0 MG/DL) 139 H 79 98 92 Calcium (8.0 - 10.5 mg/dL) 7.6 L Magnesium (1.80 - 2.40 mg/dL) 1.53 L 10/22 1700 1119 0737 063 7 Chemistry Sodium (134 - 147 mEq/L) 139 Potassium (3.4 - 5.0 mEq/L) 4.0 Chloride (100 - 108 mEq/L) 107 Carbon Dioxide (21 - 33 mEq/l) 30 Anion Gap (0 - 20) 6 BUN (7 - 18 mg/dL) 12 Creatinine (0. 6 - 1.3 mg/dL) 1.1 Glomerular Filtr Rate (80 - 90) 75.4 L Glucose (70 - 110 mg/dL) 102 POC Glucose (70 - 110 MG/DL) 123 H 132 H 118 H 100 Calcium (8.0 - 10.5 mg/dL) 7.8 L Magnesium (1.80 - 2.40 mg/dL) 1.72 L 10/21 1707 1126 0723 0426 Chemistry POC Glucose (70 - 110 MG/DL) 148 H 102 104 95 C-Reactive Protein (<10.0 mg/L) 36.0 H 10/21 0426 Chemistry Sodium (134 - 147 mEq/L) 140 Potassium (3.4 - 5.0 mEq/L ) 3.0 L Chloride (100 - 108 mEq/L) [...] Comment LARGE PLATELETS Anisocytosis NORMAL Chemistry: 10/23 10/23 10/23 10/23 10/23 195 1622 1133 0825 0623 Chemistry Sodium (134 [...] O2 Flow FiO2 Mean Ox Delivery Rate 10/05 9 1900 37.1 69 16 108/67 80.5 97 [...] Urine 1100 Current Medications Sig/Mark Start time LastMedication Dose Route Stop Time Status AdminIopamidol 100 ML .STK-MED ONE 10/23 1725 DC 10/23 IV 10/23 1726 1725Enoxaparin Sodium 70 MG ONCE ONE 10/23 1630 DC 10/23 SUBQ 10/23 1631 1750Magnesium Sulfate 100 ML ONCE ONE 10/23 1330 DC 10/23 IV 10/23 1729 1641Piperacillin Sod/ 3.375 GM Q8H 10/20 0100 AC 10/23Tazobactam Sod I V 10/25 0059 1750Sodium Chloride 100 MLCholecalciferol 1,000 INTL.UNITS DAILY 10/18 0900 CKD 10/23 PO 11/17 0859 0932Tamsulosin HCl 0.4 MG PC DIN 10/16 1800 AC 10/23 PO 11/15 1759 1750Acetaminophen 650 MG Q4H PRN PRN 10/16 1345 AC 10/20 PO 11/15 1344 0120Docusate Sodium 100 M G BID PRN PRN 10/16 1345 AC PO 11/15 1344Haloperidol 10 MG BID 10/16 1345 AC 10/23 PO 11/15 1330 2037Hydralazine HCl 10 MG Q6H PRN HI N 10/16 1345 AC IV 11/15 1344Ondansetron HCl 4 MG Q4H PRN PRN 10/16 1345 AC IV 11/15 1344Benztropine Mesylate 1 MG DAILY 10/16 1330 A C 10/23 PO 11/15 1329 0932Dextrose/Water 125 ML ASDIR PRN 10/16 1130 CKD IV 11/15 1129Dextrose/Water 250 ML ASDIR PRN 10/16 1130 CKD IV 11/15 1129Glucagon 1 MG ASDIR PRN 10/16 1130 AC IM 11/15 1129Insulin Human Lispro 0 AC HS 10/16 1130 AC SUBQ 11/15 1129 Recent Impressions-Last 72 HrsULTRASOUND - DUP VEIN ASAEL 10/21 0821 Report Impression - Status: SIGNED Entered: 10/21/2022 0912 IMPRESSION: No sonographic evidence for DVT Impression By: [email or web address] Mikaela Ac M.D.CAT SCAN - CTA CHEST FOR PE 10/24 1723 Report Impression - Status: SIGNED Entered: 10/23/20222012 IMPRESSION: 1. No pulmonary embolus. 2. Extensiv e colonic wall thickening of the visualized spleni c flexure compatible with colitis incompletely evaluated. 3. Small right pleural effusion with right lower lobe atelectasis. 4. Left upper lobe bronchiectasis. 5. Minimal anterior pericardial effusion. 6. Type 4 hiatal hernia measures 7.6 c m X 6.5 cm. 7. Gastric fundal wall thickening, correlation with recent endoscopy is recommended to help exclude an infiltrating mucosal process. Impression By: [email or web address] Mikaela Rg M.D. Vital Signs Date Temp Pulse Resp B/P B/P Mean Pulse Ox FiO2 10/22-10/23 36.7-37.1 68-77 15-16 104-125/66-73 79.0-90.3 96-98 Last Documented: Result Date Time Pulse Ox 97 10/23 1900 B/P 108/67 10/23 1900 B/P Mean 80.5 10/23 1900 O2 Delivery Room air 10/23 1899 Temp 37.1 10/23 190 0 Pulse 69 10/23 1900 Resp 16 10/23 1900 24 hour I O ending at 0700: 10/23 0700 10/22 1900 Intake Total 870 Output Total 1100 Balance -230 Intake, Oral 870 Number 1 Bowel Movements Output, Urine 1100 PATIENT WEIGHT: Weight (lb): Weight (oz): Weight (kg): 68.000 Diagnosis, Assessment PlanHospital course to date:General appearance: alert, awakeHead/Eyes: atraumatic, clear cornea, EOMI, normocephalic, normal conjunctiva/sclera, normal eyelids/periorb, PERRLAENT: normal dentition, normal ear left, normal ear right, normal nose, normal pharynx, normal sinusCardiovascular: regular rate rhythmRespiratory: decreased breath sounds, cielo r to auscultation, no distress, no tendernessAbdomen/GI: active bowel sounds, soft Abdomen quadrants:LLQ normal bowel sounds, LLQ tenderness, LUQ normal bowel sounds, RLQ normal bowel sounds, RLQ tenderness, RUQ normal bowel soundsGenitourinary: foleyExtremities: moves all , no edema-all extremities, normal capillary refill, normal range of motion, normal sensory, normal motor functionNeuro/SKILLS TRAINER: alert, oriented X 3Skin: dry, intact, no gross abnormalitiesPsychiatry: no hallucinations, normal moodProblem List/A P: 1. Rupture of urete r Free Text DxA P NotesFree text DxA P notes:Assessment:62-year-old male with last medical history of, BPH, transferred from [place] for urology evaluation and treatment secondary to possible ruptured ureter. As per patient his abdomen was distended for at least for 2 days and hewas having difficulty urinating . Patient presented to outside facilityImaging revealed severe bilateral hydronephrosis with evidence of active urine extravasation and large amount of urine in the bladder pushing all the way up tothe abdomen. As per patient's daughter about 3 L of fluid was removed within 10minutes of Black insertion. Patient reports he has been experiencing urinary hesitancy for the past 2 to 3 years. 1. Abdominal distention, severe bilateral hydronephrosis, large amount of urinar y retention -Status post Black insertion large amount of urine was obtained2. Acute kidney injury3. Hypokalemia/hypocalcemia, hyperchloremia4. Metabolic acidosis5. Possible BPH6. Severe bilateral hydronephrosis7. Hypertension8. Schizophrenia Plan of care:Admit patient for further evaluation and treatmentUrology consultation in placeKeep Black to bedside drainageI's and O'sMonitor renal functionNephrology consultationReplace electrolytesStart tamsulosinBicarb drip startedRepeat CT of the abdomen and pelvis if neededRepeat labsFurther recommendation based on patient's clinical ahtwtn2910/17/2022Vital signs within normal limitsHypokalemia 3.2, hypomagnesemia 1.50Renal function is improved, discontinue bicarb drip, continue electrolyte control-replace as needed per nephroUrology is followingContinue tamsulosinBP control-on hydralazine as needed, pain controlContinue telemetry monitoring, intake and output, fall precautionFollow-up labs, continue medications and supportive care3BP is controlledHypocalcemia 7.4, hypomagnesemia 1.5, Hypokalemia 3.1MRSA surveillance screen pending resultsUro and Nephro are followingStarted on cholecalciferol p.o., still on tamsulosinElectrolyte control- magnesium and potassium replacedFall precautionFollow-up labs, continue medications and supportive care10/19/2022Vital signs within normal limits, POC glucose is controlledHypocalcemia 7.5, hypomagnesemia 1.65MRSA surveillance screen is negativeContinue electrolyte control, replace as neededPatient is able to tolerate p.o. intakeRenal function is improved, discontinue bicarb drip today, continue BP control on IV hydralazine per nephroContinue tamsulosin p.o.Pain control, glycemic control, fall precautionFollow-up labs, continue medications and present care3Patient has no new complaints, stableHypocalcemiaBlood culture pending resultsX-ray of the chest shows mild interstitial pulmonary edema. No focal consolidation. Consultants evaluations notedElectrolyte control replace magnesiumStarte d on IV antibiotic ZosynConsult placed to Dr. Brady kilpatrick for patients UTITroponin IBlood precaution, glycemic controlFollow-up EKG, labs, continue medications and supportive care10/21/2022OC glucose is controlledD-dimer 5949Hypokalemia 3.0 , hypomagnesemia 1.50, hypocalcemia 7.3Blood culture shows no growth after 48 hoursECG: Tanya l sinus rhythmNo evidence of deep vein thrombosisI D has seen the patient. Continue empiric IV antibiotics-Zosyn, tamsulosin p.o.for now.Continue electrolyte control replace potassium and magnesiumPain control, glycemic controlFollow-up electrolytes and labs, continue medications and wpululb7010/22/2022Vital signs within normal limits, POC glucose is controlledHypocalcemia 7.8, hypomagnesemia 1.72N o sonographic evidence for DVTBlood culture shows no growth after 48 hoursPatient with good urine output, renal function is improved, patient will follow-up as an outpatientStill on IV antibiotic Zosyn, tamsulosin p.o.Continue electrolyte control-replace magnesiumContinue pain control, glycemic controlFollow-up labs, continue medications and supportive careJuly 2022:Continue IV antibiotic as per ID plan is to complete antibiotic on 25 October 2022We will discharge patient home after that with Black in placePlan is to follow-up with urology outpatientThis was explained to patient's daughterContinue with current medicationsFall precaution at 0250 at 0842 RPT #:[id number] OF REPORTPRProgress [id number]:33:00G.[id number] l able for patient [id number]:51:16 2022-10-23 18:51:00 [id number]:51:00 [facility] ([facility])Infectious Dis. Progress NoteREPORT#:[id number] REPORT STATUS: SignedDATE:10/23/22 TIME: 1850 PATIENT: MATHEW CASTILLO UNIT #: [id number]# : [id number] [address] [birth year] AGE : 62 SEX: M ATTEND: Salinas Alba I [facility] AUTHOR: Skip Jaffe MD * ALL edits or amendments must be made on the electronic/computer document * SubjectiveInterna l recordPatient examined, chart reviewed, events o f last 24 hours noted. See full dictated progress note for further details. ASSESSMENT AND PLAN: N o significant change in general condition. Patient clinically is doing about the same. Resting comfortably in bed. No diarrhea reported. No new issues reported. Recurrent fever and leukocytosi s improved. Recent complicated urinary tract infection with urinary retention. Bilateral lowe r extremity venous Doppler studies negative for DVT. D-dimer is elevated. CT angiogram of chest done on October 23, 2022 showed no pulmonary embolus. Extensive colonic wall thickening of th e visualized splenic flexure compatible with colitis incompletely evaluated. Small right pleural effusion with right lower lobe atelectasis. Left upper lobe bronchiectasis. Minimal anterior pericardial effusion. Type 4 hiatal hernia measures 7.6 cm to 6.5 cm. Gastric fundal wall thickening. Correlate boucher with recent endoscopy is recommended to help exclude an infiltrating mucosal process. Repeat urinalysis done on October 19, 2022 showed 1+ leukocyte esterase, more than 50 wbc's, more rosa n 50 rbc's, trace bacteria. Repeat CBC with manual differentia done today shows no significant left shift with 8% band forms. Bilateral lower extremity venous Doppler studies Show no evidenc e of DVT in thelower extremities. DVT prophylaxis as per primary team. Continue empiric IV antibiotics for now until October 25, 2022. Monitor patient closely for any diarrhea. at 0256 RPT #:[id number] OF REPORTPRProgress [id number]:51:00G.[id number] katerine able for patient [id number]:56:58 2022-10-23 18:27:00 [id number] [address] PATIENT NAME: MATHEW CASTILLO ADMIT DATE: 10/16/22ACCOUN T NO: [id number] ROOM NO: [facility] AGE: 62 REPORT TYPE: PROGRESS NOT E SEX: M ADMITTING PHYSICIAN:Salinas Alba MD ATTENDING PHYSICIAN:Salinas Alba MD DATE: 10/22/2022 SUBJECTIVE: The patient examined. Chart reviewed. Events of last 24 hoursnoted. Th e patient clinically is not much changed. He remains awake and alert. Resting comfortably in bed. Denies any new complaints. He is ambulatingwithin the room. Remains afebrile. No nausea or vomiting reported. Nodiarrhea reported . Continues to have indwelling Black catheter in place.Remains afebrile with a low-grade temperature of up to 37.6 degrees Celsius. CURRENT MEDICATIONS: Include benztropine, cholecalciferol, lispro insulin,tamsulosin, haloperidol, Zosyn IV, Tylenol p.r.n., docusate sodium p.r.n.,glucagon p.r.n., hydrocodone bitartrate p.r.n., hydralazine p.r.n., ondansetronp.r.n. PHYSICAL EXAMINATION:GENERAL: The patient is resting comfortably in bed. He is awake and alert,does not appear to be toxic, panda s not appear to be in any acute distress.VITAL SIGNS: Temperature maximum in last 24 hours is 37.6 degrees Celsius.Current temperature is 37.1 degrees Celsius, blood pressure is 118/70,respirations 16 per minute, pulse is 80 per minute. The patient's weight isaround 68 kg.HEENT: Head is atraumatic and normocephalic. Pupils are equal, round andreacting to light and accommodation bilaterally. Extraocular movements areintact. Oropharynx is clear. Oral hygiene is fair.NECK: Supple. JVD is absent. No carotid bruit, thyromegaly, or cervicallymphadenopathy.LUNGS: There is fair air entry bilaterally.CARDIOVASCULAR: S1, S2 audible . No murmur, gallop, S3 or S4 appreciated.ABDOMEN: Soft and slightly bulging. The patient has mild suprapubic areatenderness. No hepatosplenomegaly . Bowel sounds are normoactive. Has minimaltenderness at the renal angles bilaterally.GENITOURINARY: The patient has indwelling Black catheter in place. Thecatheter appears to be working fine and has clear urine and being drained intothe bag.EXTREMITIES: Both calves are soft. No calf tenderness. No pedal edema.Peripheral pulses are faintly palpable bilaterally.SKIN: The patient's peripheral IV sites are clean without any evidence ofphlebitis . LABORATORY DATA: Serum sodium is 139, potassium 4.0, chloride 107, fohbswouenv14, glucose 102, BUN 12, creatinine 1.1, estimated GFR is 75.4, calcium is 7.8,magnesium is 1.72. Blood cultures x2 are negative so far at 48 hours ofincubation. PATIENT NAME: MATHEW CASTILLO ASSESSMENT AND PLAN: The patient with multiple medical problems was initiallyadmitted through the Emergency Room where he was transferred from [facility] because of urinary retention. Th e patient presented to [facility] with 2 days' history of not able to pass any urine and he was found tohave 3 liters urine in his bladde r with some extravasation of urine into theperitoneal cavity. The patient had a Black catheter placed and bladder wasrelieved. He was transferred to [facility] forevaluation by Urology Service. The patient was kept on IV ceftriaxone.Initially, he showed improvement in his condition; however, he had a temperatureof up to 37.8 degrees Celsius outcome analyst on 10/20/2022, and at that time, hehad stover cultures done and he was also found to have marked leukocytosis of19,000. The patient clinically; however, remains hemodynamically stable. Hehad further workup done and inflammatory markers including D-dimer wereelevated; however, his bilateral lower extremity venous Doppler studies werenegative fo r DVT, but that does not rule out pelvic DVT. Clinically, he remainshemodynamically stable and was started on IV Zosyn empirically, which he isstill receiving and he is due to complete it o n 10/25/2022. For now, we willkeep him on the same regimen along with other supportive treatments. DVTprophylaxis as per primary team's orders. Discussed with the patient's nursingstaff. Dictated By: Skip Jaffe MD Date Dictated: 10/23/2022 18:27:31Date Transcribed: 10/23/2022 18:54:06 Micky #: [id number] ID: [id number] Authenticated and Edited by Skip Jaffe MD On 11/02/22 2:23:13 AM at 0225 PATIENT NAME: MATHEW CASTILLO [id number]:54:00G.[id number] a ble for patient [id number]:25:49 2022-10-23 13:24:00 [id number]:24:00 [facility] [facility] Progress NoteREPORT#:[id number] REPORT STATUS: SignedDATE:10/23/22 TIME: 1324 PATIENT: MATHEW CASTILLO UNIT #: [id number]# : [id number] [address] [birth year] AGE : 62 SEX: M ATTEND: Salinas Alba I [facility] AUTHOR: Carmen Kemp * ALL edits or amendments must be made on the electronic/computer document * Carmen Kemp 10/23/22 1324:SubjectiveChief complaint:Concern for ruptured ureterHPI:The patient seen and examined. Resting in bed, tolerating PO intake w/o any issue. Black to gravity, good UOP. Revie w of SystemsROS comments:A 12 point ROS is obtaine d and is negative unless specified in HPI Objectiv e GeneralVS/I O:Vital Signs: Date Time Temp Pulse Resp B/P B/P Pulse O2 O2 Flow FiO2 Mean Ox Delivery Rate 10/23 1624 [...] Weight (lb): Weight (oz): Weight (kg): 68.000 MedicationsActive Meds + DC'd Last 24 HrsIopamidol (ISOVUE-300 100ML) 100 ML .STK-MED ONE IV (DC) Enoxaparin Sodium (lovENOX) 70 MG ONCE ONE SUBQ (DC) Magnesium Sulfate (MAGNESIUM SULFATE 4GM/SWFI 100ML) 100 ML ONCE ONE IV (DC) Piperacillin Sod/Tazobactam Sod (ZOSYN 3.375GM) 3.375 GM Q8H IV Sodium Chloride (SODIUM CHLORIDE 0.9% 100 ML) 100 MLCholecalciferol (VITAMIN D) 1,000 INTL.UNITS DAILY PO (CKD) Tamsulosin HCl (Flomax 0.4 mg) 0.4 MG PC DIN PO Acetaminophen (TYLENOL) 650 MG Q4H PRN PRN PO Docusate Sodium (COLACE) 100 MG BID PRN PRN PO Haloperidol (HALDOL) 10 MG BID PO Hydralazine HCl (APRESOLINE) 10 MG Q6H PRN PRN IV Ondansetron HC l (ZOFRAN) 4 MG Q4H PRN PRN IV Benztropine Mesylate (COGENTIN) 1 MG DAILY PO Dextrose/Water (DEXTROSE 10% IN WATER) 125 ML ASDIR PRN IV (CKD ) Dextrose/Water (DEXTROSE 10% IN WATER) 250 ML ASDIR PRN IV (CKD) Glucagon (GLUCAGON) 1 MG ASDI R PRN IM Insulin Human Lispro (HUMALOG) 0 AC HS SUBQ Dietitian nutrition assessmentThe data set between the solid lines has been imported from the dietitian's assessment. _ BMI Calculated: 22.1Nutrition related diagnosis: Nutrition diagnosis details: Nutrition problem: Nutrition etiology: Nutrition signs and symptoms: Nutritio n prescription: Dietitian name: Assessment completed: _ Physical ExamGeneral appearance : alert, awake, no acute distressHead/eyes: atraumatic, clear cornea, normal conjunctiva/sclera, normocephalicENT: normal noseNeck: supple/no meningismusCardiovascular: normal heart soundsRespiratory: decreased breath sounds, wheezes, aerating well, no distressAbdomen: non-tender, softGenitourinary: urinary catheter, urineExtremities: no edema ResultsFindings/Data:Laboratory Tests 10/23 1622 1133 0825 0623 2006 Chemistry Sodium (134 - 147 mEq/L) 138 Potassium (3.4 - 5.0 mEq/L) 3.8 Chloride (100 - 108 mEq/L) 107 Carbon Dioxide (21 - 33 mEq/l) 29 Anion Gap (0 - 20) 6 BUN (7 - 18 mg/dL) 11 Creatinine (0. 6 - 1.3 mg/dL) 1.0 Glomerular Filtr Rate (80 - 90) 84.6 Glucose (70 - 110 mg/dL) 98 POC Glucose (7 0 - 110 MG/DL) 79 98 92 123 H Calcium (8.0 - 10.5 mg/dL) 7.6 L Magnesium (1.80 - 2.40 mg/dL) 1.53 L Diagnosis, Assessment PlanFree Text A P:Assessment and Plan: CHANDRA (Resolved)-Renal function improved and wnl, black to gravity, s/p bicarb gtt.-2/2 post-obstrucitve uropathy, monitor for post-obstructive diuresis. -UA, urin e lytes requested and noted, no significant proteinuria.-Per Urology note: Reportedly the patient had 3L of urine in his bladder. CT abdomen from [place] showed that the patien t has a very large distended bladder with hydroureteronephrosis and there does appear to b e maybe a fornicealrupture or some back pressure into the kidneys causing some inflammation and possibly a small amount of urine to come out through the forniceal areas that I do not see an actual ruptured ureter. The patient's creatinine has improved. His symptoms have totally resolved with catheter placement. This can be managedconservatively. The patient will follow u p as an outpatient.-Avoid nephrotoxicity monitor renal function and UOP Hypokalemia/Hypocalcemia/Hypomagnesemia-K+ improved, Mg replaced. Vitamin D deficiency, vitamin D supplement.-Monitor for post-obstructive diuresis and electrolyte imbalance Urinary Retention/BPH-Black to gravity , Urology following, on Tamsulosin-Per Urology note: Reportedly the patient had 3L of urine in his bladder. CT abdomen from [place] showed that the patient has a very large distended bladder with hydroureteronephrosis and there panda s appear to be maybe a fornicealrupture or some back pressure into the kidneys causing some inflammation and possibly a small amount of urin e to come out through the forniceal areas that I d o not see an actual ruptured ureter. The patient's creatinine has improved. His symptoms have totally resolved with catheter placement. This can be managedconservatively. The patient will follow up as an outpatient. HTN-BP acceptable, monitor, on PRN IV hydralazine Schizophrenia-Seymour e medications resumed Fever-Low grade fever on 10/19/22, blood cx (10/20/22): NGTD, B/L LE venous doppler (10/21/22): Negative for DVT, on empiric abx per primary team. Discussed the plan with carlos e patient, patient's nurse, and . Toby Koehler 10/23/22 5659:Attestations Physician AttestationReviewed findings plan:Patient examined Renal function improved an d wnl, black to gravity, -2/2 post-obstrucitve uropathy, replace electrolytes as needed, emperi c antibiotics per admitting team, agree with above A/P at 1741 at 8833 RPT #:[id number] OF REPORTPRProgress [id number]:24:00G.[id number] l able for patient [id number]:42:17 2022-10-22 18:32:00 [id number]:32:00 [facility] ([facility])Infectious Dis. Progress NoteREPORT#:[id number] REPORT STATUS: SignedDATE:10/22/22 TIME: 1831 PATIENT: MATHEW CASTILLO UNIT #: [id number]# : [id number] [address] [birth year] AGE : 62 SEX: M ATTEND: Salinas Alba AUTHOR: Skip Jaffe MD * ALL edits or amendments must be made on the electronic/computer document * SubjectiveInterna l recordPatient examined, chart reviewed, events o f last 24 hours noted. See full dictated progress note for further details. ASSESSMENT AND PLAN: N o new development. Patient is resting comfortably in bed. Remains awake and alert. Denies any new complaints. Had low-grade temperature of the 37. 6 degreeC outcome analyst today. Remains afebrile at the present time. Recurrent fever and leukocytosis most likely secondary to noninfectious causes. Recent complicated urinary tract infection with urinary retention. Bilatera l lower extremity venous Doppler studies negative for DVT. D-dimer is elevated. Repeat urinalysis done on October 19, 2022 showed 1+ leukocyte esterase, more than 50 wbc's, more than 50 rbc's , trace bacteria. Repeat CBC with manual differentia done today shows no significant left shift with 8% band forms. Bilateral lower extremity venous Doppler studies Show no evidenc e of DVT in thelower extremities. DVT prophylaxis as per primary team. Continue empiric IV antibiotics for now. at 0219 [facility] #:[id number] OF REPORTPRProgress [id number]:32:00G.[id number] l able for patient [id number]:19:49 2022-10-22 18:20:00 [id number]:[id number] [place] [address] PATIENT NAME: MATHEW CASTILLO ADMIT DATE: 10/16/22ACCOUN T NO: [id number] ROOM NO: G.6630 AGE: 62 REPORT TYPE: PROGRESS NOT E SEX: M ADMITTING PHYSICIAN:Salinas Alba MD ATTENDING PHYSICIAN:Salinas Alba MD DATE: 10/21/2022 SUBJECTIVE: The patient examined. Chart reviewed. Events of last 24 hoursnoted. Th e patient clinically is not much changed. He remains awake and alert,resting comfortably in bed. Denies any new complaints. The patient remainsafebrile with low-grade temperature of up to 37.2 degrees Celsius. No nausea,vomiting reported. No diarrhea reported. The patient continues to haveindwelling Black catheter in place. The lower abdominal discomfort hasimproved. The patient is ambulating within e room. CURRENT MEDICATIONS: Include benztropine, cholecalciferol, lispro insulin,tamsulosin, haloperidol, Zosyn IV, Tylenol p.r.n., docusate sodium p.r.n.,glucagon p.r.n., hydrocodone bitartrate p.r.n., hydralazine p.r.n., ondansetronp.r.n. PHYSICAL EXAMINATION:GENERAL: The patient is resting comfortably in bed. He is awake and alert,does not appear to be toxic, panda s not appear to be in any acute distress.VITAL SIGNS: Temperature maximum in last 24 hours is 37.8 degrees Celsius.Current temperature is 37.1 degrees Celsius, blood pressure is 118/70,respirations 16 per minute, pulse is 80 per minute. The patient's weight isaround 68 kg.HEENT: Head is atraumatic and normocephalic. Pupils are equal, round andreacting to light and accommodation bilaterally. Extraocular movements areintact. Oropharynx is clear. Oral hygiene is fair.NECK: Supple. JVD is absent. No carotid bruit, thyromegaly, or cervicallymphadenopathy.LUNGS: There is fair air entry bilaterally.CARDIOVASCULAR: S1, S2 audible . No murmur, gallop, S3 or S4 appreciated.ABDOMEN: Soft and slightly bulging. The patient has mild suprapubic areatenderness. No hepatosplenomegaly . Bowel sounds are normoactive. Has minimaltenderness at the renal angles bilaterally.GENITOURINARY: The patient has indwelling Black catheter in place. Thecatheter appears to be working fine and has clear urine and being drained intothe bag.EXTREMITIES: Both calves are soft. No calf tenderness. No pedal edema.Peripheral pulses are faintly palpable bilaterally.SKIN: The patient's peripheral IV sites are clean without any evidence ofphlebitis . LABORATORY DATA: WBC has decreased to around 14,000 with hemoglobin of 12,hematocrit of 35, platelet count is 321,000. Manual differential shows 78%neutrophils, 8% band forms, 8% lymphocyte, 4%, monocyte, 2% eosinophils. WILLIS Aragon NAME: MATHEW CASTILLO Bilateral lower extremity venous Doppler studies show no evidence of DVT.C-reactive protein is 36. Serum sodium is 140, potassium 3.0, chloride 105,bicarbonate 29, glucose 89, BUN 10, creatinine 0.9, estimated GF R is 96, calciumis 7.3, magnesium is 1.50. D-dimer is 5949. ASSESSMENT AND PLAN: The patient with multiple comorbidities, [facility]ad[facility]. The patient has a history of schizophrenia and had been havingurinary symptoms for over 2 years and abou t for 2 days, he would not be able topass any urin e and he was found to have acute urinary retention . The patientalso had suspicion for possible urinary extravasation within the peritonealcavit y due to that and for the need for urology evaluation, [facility] The patient was continued on IVceftriaxone and had been doing fairly well until outcome analyst yesterday when hestarted to have fever of up to 37.8 degrees Celsius and he developedleukocytosis of around 19,000. The patient had his antibiotics changed to IVZosyn. Urinalysis done on admission had shown 1+ leukocyte esterase and morethe 50 rbc's , more than 50 wbc's, and trace bacteria. The patient currently isreceiving IV Zosyn; however, he had developed marked leukocytosis of 19,000yesterday and because of suspicion for possibility of deep vein thrombosis,including pelvic deep vein thrombosis, he had venous Doppler studies done and heal had D-dimer quantitative checked. His venous Doppler studies of lowerextremities are negative; however, D-dimer is elevated at 5949 and C-reactiveprotei n is also elevated. The patient otherwise remains hemodynamically stable. We will for now, keep hi m on the same antibiotics. We will defer primary teamto further deep vein thrombosis prophylaxis. The case was discussed with MARLENA Cheng. Dictate d By: Skip Jaffe MD Date Dictated: 10/22/2022 18:20:30Date Transcribed: 10/22/2022 19:52:40ESTRADA/Trina #: [id number] ID: [id number] Authenticated and Edited by Skip Jaffe MD On 11/02/22 2:22:51 AM at 0323 PATIENT NAME: MATHEW CASTILLO [id number]:52:00G.[id number] a ble for patient [id number]:24:12 2022-10-22 18:15:00 [id number]:15:00 [facility] ([facility])Internal Medicine Prog. NoteREPORT#:[id number] REPORT STATUS: SignedDATE:10/22/22 TIME: 1814 PATIENT: MATHEW CASTILLO UNIT #: [id number]# : [id number] ROOM/BED: 6630-1DOB: [birth year] AGE : 62 SEX: M ATTEND: Salinas Alba I [facility] AUTHOR: Sofia Cheng NP * ALL edits or amendments must be made on the electronic/computer document * SubjectiveChief complaint:Abdominal distention, hydronephrosisHPI:62-year-old male with last medical history of, BPH, transferred from [place] for urology evaluation and treatment secondary to possible ruptured ureter. As per patient his abdomen was distended for at least for 2 days and hewas having difficulty urinating . Patient presented to outside facilityImaging revealed severe bilateral hydronephrosis with evidence of active urine extravasation and large amount of urine in the bladder pushing all the way up tothe abdomen. As per patient's daughter about 3 L of fluid was removed within 10minutes of Black insertion. Patient reports he has been experiencing urinary hesitancy for the past 2 to 3 years. Denies seeing a urologist. Patient deniesfever, chills, dysuria, hematuria, or othe r associated symptoms. Patient deniesshortness of breath, chest pain, nausea, vomiting, diarrhea, constipation.Admission vital signs blood pressur e 146/78, pulse 92, respiration 18, temperature 37.1, O2 sat 96% on room air. Abnormal labs:Hemoglobin 10.9, hematocrit 31.7, potassium 2.8, chloride 114, CO2 18, BUN 41, creatinine 2.1, glucose 643Calcium 4.9. Review of SystemsAdditional notes:Constitutional: Denies: chills, fever. ENT: Denies: earache, nasal congestion, sore throat. Respiratory: Denies: hemoptysis, parox nocturnal dyspnea, pleurisy, pleuritic pain, pneumonia, SOB, wheezing. Cardiovascular: Denies: chest pain, palpitations . GI: Reports: abdominal pain. Denies: nausea, vomiting. : Reports: flank pain, urinary retention. Denies: frequency, hematuria. Musculoskeletal: Arthritis: Denies: left upper, left lower, right upper, right lower. Neuro: Denies: change in LOC, confusion, dizziness, focal weakness, gait problem, headache, lightheaded, numbness, seizure, slurred speech, spinning sensation, syncope, unable to speak, vision change. Psych: Reports: anxiety. Denies: agitation, change in mental status, confusion, depression, homicidal ideation, hostile, insomnia, stress, suicidal ideation. Objective GeneralVS/I O:Vital Signs Date Temp Pulse Resp B/P B/P Mean Pulse Ox FiO2 10/21-10/22 36.8-37.6 72-88 14-15 114-130/67-78 83.5-92.3 97-98 Last Documented: Result Date Time Pulse Ox 97 10/22 170 B/P 114/70 10/22 1702 B/P Mean 84.4 10/22 1702 O2 Delivery Room air 10/22 170 Temp 36.9 10/22 1702 Pulse 72 10/22 1702 Resp 14 10/22 170 2 24 hour I O ending at 0700: 10/22 0700 10/21 1900 Intake Total Output Total 1200 Balance -120 0 Output, Urine 1200 PATIENT WEIGHT: Weight (lb): Weight (oz): Weight (kg): 68.000 Medications:Active Meds + DC'd Last 24 HrsMagnesium Sulfate/Dextrose (MAGNESIUM SULFATE 1GM/D5W 100ML) 100 ML ONCE ONE IV (DC) Piperacillin Sod/Tazobactam Sod (ZOSYN 3.375GM) 3.375 GM Q8H IV Sodium Chloride (SODIUM CHLORIDE 0.9% 100 ML) 100 MLCholecalciferol (VITAMIN D) 1,000 INTL.UNITS DAILY PO (CKD) Tamsulosin HCl (Flomax 0.4 mg) 0.4 MG PC DIN PO Acetaminophen (TYLENOL) 650 MG Q4H PRN PRN PO Docusate Sodium (COLACE) 100 MG BID PRN PRN PO Haloperidol (HALDOL) 10 MG BID PO Hydralazine HCl (APRESOLINE) 10 MG Q6H PRN PRN IV Ondansetron HC l (ZOFRAN) 4 MG Q4H PRN PRN IV Benztropine Mesylat e (COGENTIN) 1 MG DAILY PO Dextrose/Water (DEXTROS E 10% IN WATER) 125 ML ASDIR PRN IV (CKD) Dextrose/Water (DEXTROSE 10% IN WATER) 250 ML ASDIR PRN IV (CKD) Glucagon (GLUCAGON) 1 MG ASDI R PRN IM Insulin Human Lispro (HUMALOG) 0 AC HS SUBQ ResultsFindings/Data:Laboratory Tests 10/22/22 0637:[Embedded Image Not Available]Laboratory Tests 10/22 10/22 10/22 10/22 10/21 1700 1119 0737 0637 2003 Chemistry Sodium (134 - 147 mEq/L) 139 Potassium (3.4 - 5. 0 mEq/L) 4.0 Chloride (100 - 108 mEq/L) 107 Carbon Dioxide (21 - 33 mEq/l) 30 Anion Gap (0 - 20) 6 BUN (7 - 18 mg/dL) 12 Creatinine (0.6 - 1.3 mg/dL) 1.1 Glomerular Filtr Rate (80 - 90) 75.4 L Glucose (70 - 110 mg/dL) 102 POC Glucose (70 - 110 MG/DL) 132 H 118 H 100 148 H Calcium (8.0 - 10.5 mg/dL) 7.8 L Magnesium (1.80 - 2.40 mg/dL) 1.72 L Diagnosis, Assessment PlanHospital course to date:General appearance: alert, awakeHead/Eyes: atraumatic, clear cornea, EOMI, normocephalic, normal conjunctiva/sclera, normal eyelids/periorb, PERRLAENT: normal dentition, normal ear left, normal ear right, normal nose, normal pharynx, normal sinusCardiovascular: regular rate rhythmRespiratory: decreased breath sounds, clear to auscultation, no distress, no tendernessAbdomen/GI: active bowel sounds, soft Abdomen quadrants:LLQ normal bowel sounds, LLQ tenderness, LUQ normal bowel sounds, RLQ normal bowel sounds, RLQ tenderness, RUQ normal bowel soundsGenitourinary: foleyExtremities: moves all , no edema-all extremities, normal capillary refill, normal range of motion, normal sensory, normal motor functionNeuro/SKILLS TRAINER: alert, oriented X 3Skin: dry, intact, no gross abnormalitiesPsychiatry: no hallucinations, normal moodProblem List/A P: 1. Rupture of urete r Free Text DxA P NotesFree text DxA P notes:Assessment:62-year-old male with last medical history of, BPH, transferred from [place] for urology evaluation and treatment secondary to possible ruptured ureter. As per patient his abdomen was distended for at least for 2 days and hewas having difficulty urinating . Patient presented to outside facilityImaging revealed severe bilateral hydronephrosis with evidence of active urine extravasation and large amount of urine in the bladder pushing all the way up tothe abdomen. As per patient's daughter about 3 L of fluid was removed within 10minutes of Black insertion. Patient reports he has been experiencing urinary hesitancy for the past 2 to 3 years. 1. Abdominal distention, severe bilateral hydronephrosis, large amount of urinar y retention -Status post Black insertion large amount of urine was obtained2. Acute kidney injury3. Hypokalemia/hypocalcemia, hyperchloremia4. Metabolic acidosis5. Possible BPH6. Severe bilateral hydronephrosis7. Hypertension8. Schizophrenia Plan of care:Admit patient for further evaluation and treatmentUrology consultation in placeKeep Black to bedside drainageI's and O'sMonitor renal functionNephrology consultationReplace electrolytesStart tamsulosinBicarb drip startedRepeat CT of the abdomen and pelvis if neededRepeat labsFurther recommendation based on patient's clinical scnuej5510/17/2022Vital signs within normal limitsHypokalemia 3.2, hypomagnesemia 1.50Renal function is improved, discontinue bicarb drip, continue electrolyte control-replace as needed per nephroUrology is followingContinue tamsulosinBP control-on hydralazine as needed, pain controlContinue telemetry monitoring, intake and output, fall precautionFollow-up labs, continue medications and supportive care10/18/2022P is controlledHypocalcemia 7.4, hypomagnesemia 1.5, Hypokalemia 3.1MRSA surveillance screen pending resultsUro and Nephro are followingStarted on cholecalciferol p.o., still on tamsulosinElectrolyte control- magnesium and potassium replacedFall precautionFollow-up labs, continue medications and supportive care10/19/2022Vital signs within normal limits, POC glucose is controlledHypocalcemia 7.5, hypomagnesemia 1.65MRSA surveillance screen is negativeContinue electrolyte control, replace as neededPatient is able to tolerate p.o. intakeRenal function is improved, discontinue bicarb drip today, continue BP control on IV hydralazine per nephroContinue tamsulosin p.o.Pain control, glycemic control, fall precautionFollow-up labs, continue medications and present care3Patient has no new complaints, stableHypocalcemiaBlood culture pending resultsX-ray of the chest shows mild interstitial pulmonary edema. No focal consolidation. Consultants evaluations notedElectrolyte control replace magnesiumStarte d on IV antibiotic ZosynConsult placed to Dr. Brady kilpatrick for patients UTITroponin IBlood precaution, glycemic controlFollow-up EKG, labs, continue medications and supportive care3POC glucose is controlledD-dimer 5949Hypokalemia 3.0 , hypomagnesemia 1.50, hypocalcemia 7.3Blood culture shows no growth after 48 hoursECG: Tanya l sinus rhythmNo evidence of deep vein thrombosisI D has seen the patient. Continue empiric IV antibiotics-Zosyn, tamsulosin p.o.for now.Continue electrolyte control replace potassium and magnesiumPain control, glycemic controlFollow-up electrolytes and labs, continue medications and fizgtog3610/22/2022Vital signs within normal limits, POC glucose is controlledHypocalcemia 7.8, hypomagnesemia 1.72N o sonographic evidence for DVTBlood culture shows no growth after 48 hoursPatient with good urine output, renal function is improved, patient will follow-up as an outpatientStill on IV antibiotic Zosyn, tamsulosin p.o.Continue electrolyte control-replace magnesiumContinue pain control, glycemic controlFollow-up labs, continue medications and supportive care at 0314 at 4359 RPT #:[id number] OF REPORTPRProgress [id number]:15:00G.[id number] katerine able for patient [id number]:14:38 2022-10-22 09:31:00 [id number]:31:00 [facility] ([facility])Nephrology Progress NoteREPORT#:[id number] REPORT STATUS: SignedDATE:10/22/22 TIME: 930 PATIENT: MATHEW CASTILLO UNIT #: [id number]# : [id number] ROOM[facility]BED[facility]DOB: [birth year] AGE: 62 SEX: M ATTEND: Salinas Alba I [facility] AUTHOR: Carmen Kemp * ALL edits or amendments must be made on the electronic/computer document * Carmen Kemp 10/22/22 0931:SubjectiveChief complaint:Concern for ruptured ureterHPI:The patient seen and examined. Resting in bed, tolerating PO intake w/o any issue. Black to gravity, good UOP. Revie w of SystemsROS comments:A 12 point ROS is obtaine d and is negative unless specified in HPI Objectiv e GeneralVS/I O:Vital Signs: Date Time Temp Pulse Resp B/P B/P Pulse O2 O2 Flow FiO2 Mean Ox Delivery Rate 10/22 1702 [...] 10/21 1900 Intake Total Output Total 1200 Balanc e -1200 Output, Urine 1200 PATIENT WEIGHT: Weight (lb): Weight (oz): Weight (kg): 68.000 MedicationsActive Meds + DC'd Last 24 HrsMagnesium Sulfate/Dextrose (MAGNESIUM SULFATE 1GM/D5W 100ML) 100 ML ONCE ONE IV (DC) Piperacillin Sod/Tazobactam Sod (ZOSYN 3.375GM) 3.375 GM Q8H IV Sodium Chloride (SODIUM CHLORIDE 0.9% 100 ML) 100 MLCholecalciferol (VITAMIN D) 1,000 INTL.UNITS DAILY PO (CKD) Tamsulosin HCl (Flomax 0.4 mg) 0.4 MG PC DIN PO Acetaminophen (TYLENOL) 650 MG Q4H PRN PRN PO Docusate Sodium (COLACE) 100 MG BID PRN PRN PO Haloperidol (HALDOL) 10 MG BID PO Hydralazine HCl (APRESOLINE) 10 MG Q6H PRN PRN IV Ondansetron HC l (ZOFRAN) 4 MG Q4H PRN PRN IV Benztropine Mesylat e (COGENTIN) 1 MG DAILY PO Dextrose/Water (DEXTROS E 10% IN WATER) 125 ML ASDIR PRN IV (CKD) Dextrose/Water (DEXTROSE 10% IN WATER) 250 ML ASDIR PRN IV (CKD) Glucagon (GLUCAGON) 1 MG ASDI R PRN IM Insulin Human Lispro (HUMALOG) 0 AC HS SUBQ Dietitian nutrition assessmentThe data set between the solid lines has been imported from the dietitian's assessment. _ BMI Calculated: 22.1Nutrition related diagnosis: Nutrition diagnosis details: Nutrition problem: Nutrition etiology: Nutrition signs and symptoms: Nutritio n prescription: Dietitian name: Assessment completed: _ Physical ExamGeneral appearance : alert, awake, no acute distressHead/eyes: atraumatic, clear cornea, normal conjunctiva/sclera, normocephalicENT: normal noseNeck: supple/no meningismusCardiovascular: normal heart soundsRespiratory: decreased breath sounds, wheezes, aerating well, no distressAbdomen: non-tender, softGenitourinary: urinary catheter, urineExtremities: no edema ResultsFindings/Data:Laboratory Tests 10/22 10/22 10/22 10/22 10/21 1700 1119 [id number] 2003 Chemistry Sodium (134 - 147 mEq/L) 139 Potassiu m (3.4 - 5.0 mEq/L) 4.0 Chloride (100 - 108 mEq/L) 107 Carbon Dioxide (21 - 33 mEq/l) 30 Anion Gap (0 - 20) 6 BUN (7 - 18 mg/dL) 12 Creatinine (0.6 - 1.3 mg/dL) 1.1 Glomerular Filtr Rate (80 - 90) 75.4 L Glucose (70 - 110 mg/dL) 102 POC Glucose (70 - 110 MG/DL) 132 H 118 H 100 148 H Calcium (8.0 - 10.5 mg/dL) 7.8 L Magnesium (1.80 - 2.40 mg/dL) 1.72 L Diagnosis, Assessment PlanFree Cal t A P:Assessment and Plan: CHANDRA (Resolved)-Renal function improved and wnl, black to gravity, s/p bicarb gtt.-2/2 post-obstrucitve uropathy, monitor for post-obstructive diuresis. -UA, urin e lytes requested and noted, no significant proteinuria.-Per Urology note: Reportedly the patient had 3L of urine in his bladder. CT abdomen from [place] showed that the patien t has a very large distended bladder with hydroureteronephrosis and there does appear to b e maybe a fornicealrupture or some back pressure into the kidneys causing some inflammation and possibly a small amount of urine to come out through the forniceal areas that I do not see an actual ruptured ureter. The patient's creatinine has improved. His symptoms have totally resolved with catheter placement. This can be managedconservatively. The patient will follow u p as an outpatient.-Avoid nephrotoxicity monitor renal function and UOP Hypokalemia/Hypocalcemia/Hypomagnesemia-K+ improved, Mg replaced. Vitamin D deficiency, vitamin D supplement.-Monitor for post-obstructive diuresis and electrolyte imbalance Urinary Retention/BPH-Black to gravity , Urology following, on Tamsulosin-Per Urology note: Reportedly the patient had 3L of urine in his bladder. CT abdomen from [place] showed that the patient has a very large distended bladder with hydroureteronephrosis and there panda s appear to be maybe a fornicealrupture or some back pressure into the kidneys causing some inflammation and possibly a small amount of urin e to come out through the forniceal areas that I d o not see an actual ruptured ureter. The patient's creatinine has improved. His symptoms have totally resolved with catheter placement. This can be managedconservatively. The patient will follow up as an outpatient. HTN-BP acceptable, monitor, on PRN IV hydralazine Schizophrenia-Seymour e medications resumed Fever-Low grade fever on 10/19/22, blood cx (10/20/22): NGTD, B/L LE venous doppler (10/21/22): Negative for DVT, on empiric abx per primary team. Discussed the plan with e patient, patient's nurse, and . Toby Koehler 10/22/22 1261:Attestations Physician AttestationReviewed findings plan:Patient examined Renal function improved an d wnl, black to gravity, -2/2 post-obstrucitve uropathy, replace electrolytes as needed, agree with aboveA/P at 1842 at 2220 RPT #:[id number] OF REPORTPRProgress [id number]:31:00G.[id number] l able for patient [id number]:42:25 2022-10-21 20:48:00 [id number]:48:00 [facility] ([facility])Internal Medicine Prog. NoteREPORT#:[id number] REPORT STATUS: SignedDATE:10/21/22 TIME: 2047 PATIENT: MATHEW CASTILLO UNIT #: [id number]# : [id number] [address] [birth year] AGE : 62 SEX: M ATTEND: Salinas Alba I [facility] AUTHOR: Sofia Cheng NP * ALL edits or amendments must be made on the electronic/computer document * SubjectiveChief complaint:Abdominal distention, hydronephrosisHPI:62-year-old male with last medical history of, BPH, transferred from [place] for urology evaluation and treatment secondary to possible ruptured ureter. As per patient his abdomen was distended for at least for 2 days and hewas having difficulty urinating . Patient presented to outside facilityImaging revealed severe bilateral hydronephrosis with evidence of active urine extravasation and large amount of urine in the bladder pushing all the way up tothe abdomen. As per patient's daughter about 3 L of fluid was removed within 10minutes of Black insertion. Patient reports he has been experiencing urinary hesitancy for the past 2 to 3 years. Denies seeing a urologist. Patient deniesfever, chills, dysuria, hematuria, or othe r associated symptoms. Patient deniesshortness of breath, chest pain, nausea, vomiting, diarrhea, constipation.Admission vital signs blood pressur e 146/78, pulse 92, respiration 18, temperature 37.1, O2 sat 96% on room air. Abnormal labs:Hemoglobin 10.9, hematocrit 31.7, potassium 2.8, chloride 114, CO2 18, BUN 41, creatinine 2.1, glucose 643Calcium 4.9. Review of SystemsAdditional notes:Constitutional: Denies: chills, fever. ENT: Denies: earache, nasal congestion, sore throat. Respiratory: Denies: hemoptysis, parox nocturnal dyspnea, pleurisy, pleuritic pain, pneumonia, SOB, wheezing. Cardiovascular: Denies: chest pain, palpitations . GI: Reports: abdominal pain. Denies: nausea, vomiting. : Reports: flank pain, urinary retention. Denies: frequency, hematuria. Musculoskeletal: Arthritis: Denies: left upper, left lower, right upper, right lower. Neuro: Denies: change in LOC, confusion, dizziness, focal weakness, gait problem, headache, lightheaded, numbness, seizure, slurred speech, spinning sensation, syncope, unable to speak, vision change. Psych: Reports: anxiety. Denies: agitation, change in mental status, confusion, depression, homicidal ideation, hostile, insomnia, stress, suicidal ideation. Objective GeneralVS/I O:Vital Signs Date Temp Pulse Resp B/P B/P Mean Pulse Ox FiO2 10/20-10/21 36.8-37.2 70-84 14-17 112-125/66-77 81.4-91.8 94-98 Last Documented: Result Date Time Pulse Ox 97 10/21 2002 B/P 118/77 10/21 2002 B/P Mean 90.5 10/21 2002 O2 Delivery Room air 10/21 2002 Temp 36.8 10/21 2002 Pulse 84 10/21 2002 Resp 14 10/21 2002 24 hour I O ending at 0700: 10/21 0700 10/05 6 1900 Intake Total 400 Output Total 800 Balance -400 Intake, Oral 400 Number 2 Bowel Movements Output, Urine 800 PATIENT WEIGHT: Weight (lb): Weight (oz): Weight (kg): 68.000 Medications:Active Meds + DC'd Last 24 HrsMagnesium Sulfate (MAGNESIUM SULFATE 4GM/SWFI 100ML) 100 ML ONCE ONE IV (DC) Potassium Chlorid e (POTASSIUM CHLORIDE 20MEQ TAB.ER) 40 MEQ ONCE ON E PO (DC) Piperacillin Sod/Tazobactam Sod (ZOSYN 3.375GM) 3.375 GM Q8H IV Sodium Chloride (SODIUM CHLORIDE 0.9% 100 ML) 100 MLCholecalciferol (VITAMIN D) 1,000 INTL.UNITS DAILY PO (CKD) Tamsulosin HCl (Flomax 0.4 mg) 0.4 MG PC DIN PO Acetaminophen (TYLENOL) 650 MG Q4H PRN PRN PO Docusate Sodium (COLACE) 100 MG BID PRN PRN PO Haloperidol (HALDOL) 10 MG BID PO Hydralazine HC l (APRESOLINE) 10 MG Q6H PRN PRN IV Hydrocodone Bitart/Acetaminophen (NORCO 5/325) 1 TAB Q6H PRN PRN PO (DC) Ondansetron HCl (ZOFRAN) 4 MG Q4H HI N PRN IV Benztropine Mesylate (COGENTIN) 1 MG DAILY PO Dextrose/Water (DEXTROSE 10% IN WATER) 125 ML ASDIR PRN IV (CKD) Dextrose/Water (DEXTROSE 10% IN WATER) 250 ML ASDIR PRN IV (CKD ) Glucagon (GLUCAGON) 1 MG ASDIR PRN IM Insulin Human Lispro (HUMALOG) 0 AC HS SUBQ ResultsFindings/Data:Laboratory Tests 10/21/22 0426:[Embedded Image Not Available]Laboratory Tests 10/21 10/21 10/21 10/21 10/21 1707 [...] x10 3/uL) 13.9 H RBC (4.00 - 5.6 0 x10 6/uL) 3.97 L Hgb (12.5 - 16.9 g/dL) 11.6 L Hct (37.5 - 50.7 %) 34.9 L MCV (81.0 - 99.0 fL) 87.9 MCH (27.0 - 33.0 pg) 29.2 MCHC (33.0 - 37. 0 g/dL) 33.2 RDW (11.5 - 14.5 %) [...] Morphology Comment LARGE PLATELETS Anisocytosis NORMAL Radiology data:Recent Impressions:ULTRASOUND - DUP VEIN ASAEL 10/21 0821 Report Impression - Status: SIGNED Entered: 10/21/2022 0912 IMPRESSION: No sonographic evidence for DVT Impression By: May - Ld Ac M.D. Diagnosis, Assessment PlanHospital course to date:General appearance: alert, awakeHead/Eyes: atraumatic, clear cornea, EOMI, normocephalic, normal conjunctiva/sclera, normal eyelids/periorb, PERRLAENT: normal dentition, normal ear left, normal ear right, normal nose, normal pharynx, normal sinusCardiovascular: regular rate rhythmRespiratory: decreased breath sounds, cielo r to auscultation, no distress, no tendernessAbdomen/GI: active bowel sounds, soft Abdomen quadrants:LLQ normal bowel sounds, LLQ tenderness, LUQ normal bowel sounds, RLQ normal bowel sounds, RLQ tenderness, RUQ normal bowel soundsGenitourinary: foleyExtremities: moves all , no edema-all extremities, normal capillary refill, normal range of motion, normal sensory, normal motor functionNeuro/SKILLS TRAINER: alert, oriented X 3Skin: dry, intact, no gross abnormalitiesPsychiatry: no hallucinations, normal moodProblem List/A P: 1. Rupture of urete r Free Text DxA P NotesFree text DxA P notes:Assessment:62-year-old male with last medical history of, BPH, transferred from [place] for urology evaluation and treatment secondary to possible ruptured ureter. As per patient his abdomen was distended for at least for 2 days and hewas having difficulty urinating . Patient presented to outside facilityImaging revealed severe bilateral hydronephrosis with evidence of active urine extravasation and large amount of urine in the bladder pushing all the way up tothe abdomen. As per patient's daughter about 3 L of fluid was removed within 10minutes of Black insertion. Patient reports he has been experiencing urinary hesitancy for the past 2 to 3 years. 1. Abdominal distention, severe bilateral hydronephrosis, large amount of urinar y retention -Status post Black insertion large amount of urine was obtained2. Acute kidney injury3. Hypokalemia/hypocalcemia, hyperchloremia4. Metabolic acidosis5. Possible BPH6. Severe bilateral hydronephrosis7. Hypertension8. Schizophrenia Plan of care:Admit patient for further evaluation and treatmentUrology consultation in placeKeep Black to bedside drainageI's and O'sMonitor renal functionNephrology consultationReplace electrolytesStart tamsulosinBicarb drip startedRepeat CT of the abdomen and pelvis if neededRepeat labsFurther recommendation based on patient's clinical [id number]/17/2022Vital signs within normal limitsHypokalemia 3.2, hypomagnesemia 1.50Renal function is improved, discontinue bicarb drip, continue electrolyte control-replace as needed per nephroUrology is followingContinue tamsulosinBP control-on hydralazine as needed, pain controlContinue telemetry monitoring, intake and output, fall precautionFollow-up labs, continue medications and supportive care3BP is controlledHypocalcemia 7.4, hypomagnesemia 1.5, Hypokalemia 3.1MRSA surveillance screen pending resultsUro and Nephro are followingStarted on cholecalciferol p.o., still on tamsulosinElectrolyte control- magnesium and potassium replacedFall precautionFollow-up labs, continue medications and supportive care10/19/2022Vital signs within normal limits, POC glucose is controlledHypocalcemia 7.5, hypomagnesemia 1.65MRSA surveillance screen is negativeContinue electrolyte control, replace as neededPatient is able to tolerate p.o. intakeRenal function is improved, discontinue bicarb drip today, continue BP control on IV hydralazine per nephroContinue tamsulosin p.o.Pain control, glycemic control, fall precautionFollow-up labs, continue medications and present care3Patient has no new complaints, stableHypocalcemiaBlood culture pending resultsX-ray of the chest shows mild interstitial pulmonary edema. No focal consolidation. Consultants evaluations notedElectrolyte control replace magnesiumStarte d on IV antibiotic ZosynConsult placed to Dr. Brady kilpatrick for patients UTITroponin IBlood precaution, glycemic controlFollow-up EKG, labs, continue medications and supportive care3POC glucose is controlledD-dimer 5949Hypokalemia 3.0 , hypomagnesemia 1.50, hypocalcemia 7.3Blood culture shows no growth after 48 hoursECG: Tanya l sinus rhythmNo evidence of deep vein thrombosisI D has seen the patient. Continue empiric IV antibiotics-Zosyn, tamsulosin p.o. for now.Continue electrolyte control replace potassium and magnesiumPain control, glycemic controlFollow-up electrolytes and labs, continue medications and present at 0104 at 1009 RPT #:[id number] OF REPORTPRProgress [id number]:48:00G.[id number] katerine able for patient [id number]:04:19 2022-10-21 19:01:00 [id number]:01:00 [facility] ([facility])Infectious Dis. Progress NoteREPORT#:[id number] REPORT STATUS: SignedDATE:10/21/22 TIME: 1900 PATIENT: MATHEW CASTILLO UNIT #: [id number]# : [id number] ROOM/BED: [facility]30-1DOB: [birth year] AGE : 62 SEX: M ATTEND: Salinas Alba I [facility] AUTHOR: Skip Jaffe MD * ALL edits or amendments must be made on the electronic/computer document * SubjectiveInterna l recordPatient examined, chart reviewed, events o f last 24 hours noted. See full dictated progress note for further details. ASSESSMENT AND PLAN: N o significant change in general condition. Patient is resting comfortably in bed. Denies any new complaints. His lower abdominal discomfort is better. He remains afebrile with low-grade temperature. Recurrent fever and leukocytosis most likely secondary to noninfectious causes. Recent complicated urinary tract infection with urinary retention. Bilateral lower extremity venous Doppler studies negative for DVT. D-dimer is elevated. Repeat urinalysis done on October 20, 2022 showed 1+ leukocyte esterase, more than 50 wbc's, more than 50 rbc's, trace bacteria. Repea t CBC with manual differentia done today shows no significant left shift with 8% band forms. Bilateral lower extremity venous Doppler studies Show no evidence of DVT in thelower extremities. DVT prophylaxis as per primary team. Continue empiric IV antibiotics for now. Discussed with Skylar MENDIOLA. at 0242 RPT #:[id number] OF REPORTPRProgress [id number]:01:00G.[id number] l able for patient [id number]:42:47 2022-10-21 11:23:00 [id number]:23:00 [facility] ([facility] Progress NoteREPORT#:[id number] REPORT STATUS: SignedDATE:10/21/22 TIME: 112 PATIENT: MATHEW CASTILLO UNIT #: [id number]# : [id number] [address] [birth year] AGE : 62 SEX: M ATTEND: Salinas Alba I [facility] AUTHOR: Carmen Kemp * ALL edits or amendments must be made on the electronic/computer document * Carmen Kemp 10/21/22 1123:SubjectiveChief complaint:Concern for ruptured ureterHPI:The patient seen and examined. Resting in bed, tolerating PO intake w/o any issue. Black to gravity, good UOP. Revie w of SystemsROS comments:A 12 point ROS is obtaine d and is negative unless specified in HPI Objectiv e GeneralVS/I O:Vital Signs: Date Time Temp Pulse Resp B/P B/P Pulse O2 O2 Flow FiO2 Mean Ox Delivery Rate 10/21 1124 [...] Weight (lb): Weight (oz): Weight (kg): 68.000 MedicationsActive Meds + DC' d Last 24 HrsMagnesium Sulfate (MAGNESIUM SULFATE 4GM/SWFI 100ML) 100 ML ONCE ONE IV (DC) Potassiu m Chloride (POTASSIUM CHLORIDE 20MEQ TAB.ER) 40 ME Q ONCE ONE PO (DC) Piperacillin Sod/Tazobactam So d (ZOSYN 3.375GM) 3.375 GM Q8H IV Sodium Chloride (SODIUM CHLORIDE 0.9% 100 ML) 100 MLCholecalciferol (VITAMIN D) 1,000 INTL.UNITS DAILY PO (CKD) Tamsulosin HCl (Flomax 0.4 mg) 0. 4 MG PC DIN PO Acetaminophen (TYLENOL) 650 [...] Mesylate (COGENTIN) 1 MG DAILY PO Dextrose/Water (DEXTROS E 10% IN WATER) 125 ML ASDIR PRN IV (CKD) Dextrose/Water (DEXTROSE 10% IN WATER) 250 ML ASDIR PRN IV (CKD) Glucagon (GLUCAGON) 1 MG ASDI R PRN IM Insulin Human Lispro (HUMALOG) 0 AC HS SUBQ Dietitian nutrition assessmentThe data set between the solid lines has been imported from the dietitian's assessment. _ BMI Calculated: 22.1Nutrition related diagnosis: Nutrition diagnosis details: Nutrition problem: Nutrition etiology: Nutrition signs and symptoms: Nutritio n prescription: Dietitian name: Assessment completed: _ Physical ExamGeneral appearance : alert, awake, no acute distressHead/eyes: atraumatic, clear cornea, normal conjunctiva/sclera, normocephalicENT: normal noseNeck: supple/no meningismusCardiovascular: normal heart soundsRespiratory: decreased breath sounds, aerating well, no distressAbdomen: non-tender, softGenitourinary: urinary catheter, urineExtremities: no edema ResultsFindings/Data:Laboratory Tests 10/21 10/05 7 10/21 10/21 10/20 1126 0723 0426 0426 1957 Chemistry Sodium (134 - 147 mEq/L) 140 Potassium (3.4 - 5.0 mEq/L) 3.0 L Chloride (100 - 108 mEq/L) 105 Carbon Dioxide (21 - 33 mEq/l) 29 Anion Gap (0 - 20) 9 BUN (7 - 18 mg/dL) 10 Creatinine (0.6 - 1.3 mg/dL) 0.9 Glomerular Filt r Rate (80 - 90) 96.0 H Glucose (70 - 110 mg/dL) 8 9 POC Glucose (70 - 110 MG/DL) 104 95 148 H Calciu m (8.0 - 10.5 mg/dL) 7.3 L Magnesium (1.80 - 2.40 mg/dL) 1.50 L C-Reactive Protein (<10.0 mg/L) 36.0 H Laboratory Tests 10/21 425 Coagulation D-Dimer (<=500 ng/mlFEU) 5949 *H Laboratory Test s 10/21 425 Hematology WBC (4.5 - 11.0 x10 3/uL) 13.9 H RBC (4.00 - 5.60 x10 6/uL) 3.97 L Hgb (12.5 - 16.9 g/dL) 11.6 L Hct (37.5 - 50.7 %) 34.9 L MCV (81.0 - 99.0 fL) 87.9 MCH (27.0 - 33. 0 pg) 29.2 MCHC (33.0 - 37.0 g/dL) [...] Morphology Comment LARGE PLATELETS Anisocytosis NORMAL Radiology data:Recent Impressions:ULTRASOUND - DUP VEIN BI L 10/21 0821 Report Impression - Status: SIGNED Entered: 10/21/2022 0912 IMPRESSION: No sonographic evidence for DVT Impression By: [id number] - Ld Ac M.D. Diagnosis, Assessment PlanFree Text A P:Assessment and Plan : CHANDRA (Resolved)-Renal function improved and wnl, black to gravity, s/p bicarb gtt.-2/2 post-obstrucitve uropathy, monitor for post-obstructive diuresis. -UA, urine lytes requested-Per Urology note: Reportedly the patient had 3L of urine in his bladder. CT abdomen from [place] showed that the patien t has a very large distended bladder with hydroureteronephrosis and there does appear to b e maybe a fornicealrupture or some back pressure into the kidneys causing some inflammation and possibly a small amount of urine to come out through the forniceal areas that I do not see an actual ruptured ureter. The patient's creatinine has improved. His symptoms have totally resolved with catheter placement. This can be managedconservatively. The patient will follow u p as an outpatient.-Avoid nephrotoxicity monitor renal function and UOP Hypokalemia/Hypocalcemia/Hypomagnesemia-K+ and M g replaced. Vitamin D deficiency, vitamin D supplement.-Monitor for post-obstructive diuresi s and electrolyte imbalance Urinary Retention/BPH-Black to gravity, Urology following, on Tamsulosin-Per Urology note: Reportedly the patient had 3L of urine in his bladder. CT abdomen from [place] showed rosa t the patient has a very large distended bladder with hydroureteronephrosis and there does appear to be maybe a fornicealrupture or some back pressure into the kidneys causing some inflammation and possibly a small amount of urin e to come out through the forniceal areas that I d o not see an actual ruptured ureter. The patient's creatinine has improved. His symptoms have totally resolved with catheter placement. This can be managedconservatively. The patient will follow up as an outpatient. HTN-BP acceptable, monitor, on PRN IV hydralazine Schizophrenia-Seymour e medications resumed Fever-Low grade fever on 10/19/22, blood cx (10/20/22): NGTD, B/L LE venous doppler (10/21/22): Negative for DVT, on empiric abx per primary team. Discussed the plan with e patient, patient's nurse, and . Toby Koehler 10/21/222053:Attestations Physician AttestationReviewed findings plan:Ptient examined Renal function improved and wnl, black to gravity, -2/2 post-obstrucitve uropathy, monitor for post-obstructive diuresis, low K replaced agree with above A/P at 1640 at 2055 RPT #:[id number] OF REPORTPRProgress [id number]:23:00G.[id number] l able for patient [id number]:40:19 2022-10-21 03:59:00 [id number] [address] PATIENT NAME: MATHEW CASTILLO ADMIT DATE: 10/16/22ACCOUNT NO: [id number] ROOM NO: [facility] AGE: 62 REPORT TYPE: CONSULTATION REPORT SEX: M ADMITTING PHYSICIAN:Salinas Alba MD ATTENDING PHYSICIAN:Salinas Alba MD CONSULTATION DATE: 10/20/2022 INFECTIOUS DISEASES CONSULTATIO N The patient examined, chart reviewed, old record s reviewed, full consult dictated. Thank you, Dr. Michael, for asking me to evaluate Mr. Mathew Castillo. HISTORY OF PRESENT ILLNESS: Mr. Castillo is a 62-year-old male with past medica l history of benign prostatic hypertrophy with recurrent urinary symptoms,history of schizophrenia, currently disabled because of schizophrenia, who was initially admitted to hospital in [place] where he presented with acute urinary retention. The patient reportedly was unable to pass urine for 2 days and he was found to have markedly distended bladder with bilateral hydronephrosis and there was a suspicion for extravasation of urine. The patien t had a Black catheter placed at that facility and subsequently he startedto have urine output and his bladder apparently had about 3 liters of urine. The patient was also found to have acute renal failure. Because of the need forurology evaluation[facility] On admission, the patient was afebrile; however, hedid have elevated BUN and creatinine and he was started empirically on IV ceftriaxone. The patient was evaluated by Dr. Toby Koehlre in nephrology consultation and with supportive treatment, he started to show improvement in his condition. The patient yesterday, however, started to have temperature of up to 37.8 degrees Celsius without any other obvious source of infection. He had workup done including CBC and BMP that was not much impressive; however, this morning, he was found to have leukocytosis of around 19,000 without an y other obvious source of infection. The patient was empirically switched to IV Zosyn. Infectious diseases consultation is requested for evaluatio n of the patient for fever, recurrent leukocytosis , complicated urinary tract infection and for advice regarding further antibiotic treatment as necessary. REVIEW OF SYSTEMS: The patient currently appears awake, alert, and comfortable. He denies any headache, dizziness or blurring of vision. He did have a temperature of up to 37.8 degrees Celsius outcome analyst today and after that he had been only having low-grade fever. Denies any nausea, vomiting or diarrhea. Denies any chest pain, cough, expectoration, or shortness of breath. He continues to have a Fole y catheter in place and admits to having suprapubi c areasoreness and pain, however, states that the pain and soreness he had at the timeof presentation to the [facility] has resolved. Denies any joint pains. He is ambulating within the room. PATIENT NAME: MATHEW CASTILLO Th e patient states that he had 3 soft bowel movement s today, but no ladan diarrhea and he also had bee n having difficulty in urination for last over 2 years. States that sometimes he would go to bathroom and would feel that he wants to pass urine, but he was unable to and then he would take some rest and go back and was able to pass urine. PAST MEDICAL HISTORY: Significant for schizophrenia diagnosed several decades ago, history of hypertension, history of benign prostatic hypertrophy. The patient currently on disability because of his schizophrenia. PAST SURGICAL HISTORY: Unremarkable. ALLERGIES: THE PATIENT HAS NO KNOWN DRUG ALLERGIES. SOCIAL AND PERSONAL HISTORY: The patient is currently single, lives with his daughter, has been a smoker and continues to smoke. Denies any histor y of alcohol use, IV drug use or substance abuse. 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 VACCINATION HISTORY: The patient has received COVID-19 vaccine two doses. He is not sure of the brand. Has not received any further booster doses. CURRENT MEDICATIONS: Include benztropine, cholecalciferol, lispro insulin, tamsulosin, haloperidol, Zosyn IV, Tylenol p.r.n., docusate sodium p.r.n., glucagon p.r.n., hydrocodone bitartrate p.r.n., hydralazine p.r.n., ondansetron p.r.n. PHYSICAL EXAMINATION:GENERAL: The patient is resting comfortably in bed. He is awake and alert, does not appear to be toxic, does not appear to be in any acute distress.RON L SIGNS: Temperature maximum in last 24 hours is 37.8 degrees Celsius. Current temperature is 37. 1 degrees Celsius, blood pressure is 118/70, respirations 16 per minute, pulse is 80 per minute. The patient's weight is around 68 kg.HEENT: Head is atraumatic and normocephalic. Pupils are equal, round and reacting to light an d accommodation bilaterally. Extraocular movements are intact. Oropharynx is clear. Oral hygiene is fair.NECK: Supple. JVD is absent. No carotid bruit, thyromegaly, or cervical lymphadenopathy.LUNGS: There is fair air entry bilaterally.CARDIOVASCULAR: S1, S2 audible. No murmur, gallop, S3 or S4 appreciated.ABDOMEN: Soft and slightly bulging. The patient has mild suprapubic area tenderness. No hepatosplenomegaly. Bowel sounds are normoactive . Has minimal tenderness at the renal angles bilaterally.GENITOURINARY: The patient has indwelling Black catheter in place. The catheter appears to be working fine and has clear urine and being drained into the bag.EXTREMITIES: Both calves are soft. No calf tenderness. No pedal edema. Peripheral pulses are faintly palpable bilaterally.SKIN: The patient's peripheral IV sites are clean without any evidence of phlebitis. LABORATORY DATA: WBC on admission was about 11,000. WBC yesterday was around PATIENT NAME: MATHEW CASTILLO 10,000 with hemoglobin of 12, hematocrit of 36, platelet count 313. WBC todayhas increased to around 19,000 with hemoglobin of 12, hematocrit of 37, plateletcoun t is 328. Automated differentials show 81% neutrophils, 2% immature granulocytes, 7% lymphocyte, 8%, monocyte, 2% eosinophil. Lactic acid today is 1.1. PT is 12.7, INR 1.1, PTT is 26.1. No urinalysis or urine culture available from the day of admission; however, reportedly the patient did have evidence of urinary tract infection at the transferring facility. TSH is 1.59. Hemoglobin A1c on admission was 5.5. Vitamin D 25-hydroxy, cholecalciferol is 25.5. MRSA screen done on 10/19/2022 is negative. The patient had a urinalysisdone on 10/19/2022 outcome analyst that showed slightly cloudy urine with negativeketones, 3+ blood, 1+ protein, 1+ leukocyte esterase, more than 50 rbc's, more rosa n 50 wbc's, trace bacteria, 11-20 hyaline casts, 1 + mucus. Urine random sodium is 102. Urine random protein is 79. Urine random creatinine is 112. Urine osmolality is 575. The patient had a CBC done today that showed WBC of 19,000 with hemoglobin of 12, hematocrit of 37, platelet count 328. BUN today was 12, creatinine 0.8, estimated GFR 99, total protein 5.0, albumin 2.3 , calcium 7.2, bilirubin 0.3, AST 25, ALT 28, alkaline phosphatase is 47, lipase is 57. Chest x-ray done today shows mild interstitial pulmonary edema, no focalconsolidation. High-sensitivity troponin I is less than 3. Repeat CBC done this morning showed WBC around 18,000 with hemoglobin of 12, hematocrit of 37, platelet count 341. Repeat troponin I high sensitivity is less than 3. The patient had 2 blood cultures done outcome analyst today, which are incubating. IMPRESSION: The patient with multiple comorbidities including history of schizophrenia and benign prostatic hypertrophy with worsening urinary difficulties for last ove r 2 years, was admitted through emergency room where [facility] evaluation. The patient had presented there with acute urinary retention with 2days of no urine output and he was found to have about 3 liters of urine in the bladder and had bilateral hydronephrosis. The patient had complicated urinary tract infection, for which he was treated with IV ceftriaxone and had been doingfairly well. The patient was also in acute renal failure that showed improvement with conservative treatment. He was evaluated by urology service and further workup is suggested as an outpatient. The patient, however, had developed low-grade fever of up to 37.8 degrees Celsius last night and outcome analyst and had developed marked leukocytosis. Clinically, he shows no signs ofacute toxicity and the fever and leukocytosis in this setting most likely could be secondary t o noninfectious causes. In view of his current illness, it will be appropriate to rule out deep venous thrombosis and low-grade PE. Other possibility could be developing Clostridium difficile colitis which needs to be closely monitored for. At present, the patient had 3 sof t bowel movements, but no ladan diarrhea and if he develops diarrhea, then we will consider further workup. Clinically, he shows no signs of any overwhelming new infection; however, since his antibiotic regimen had been broadened to Zosyn IV, we will for now keep him on the same while his further workup is in progress. SUGGEST:1. A CBC with manual differential in the morning.2. Monitor the patient for any further temperature spike.3. Get inflammatory markers including D-dimer and C-reactive protein with the morning labs.4. Bilateral lower extremity venous Doppler studies to rule out DVT.5. Continue empiric IV antibiotics for now.6. Further recommendations t o follow depending on the clinical course of the PATIENT NAME: MATHEW CASTILLO patient. Thank you again for inviting me to participate in the care of your patient. I will continue to follow along with you. The case was discussed with MARLENA Cheng, an d with the patient's nursing staff. Dictated By: Skip Jaffe MD Date Dictated: 10/21/2022 03:59:46Date Transcribed: 10/21/2022 04:40:04HA/Annelise #: [id number] ID: [id number] by Skip Jaffe MD On 11/02/2022 02:22:37 AM at 0222 PATIENT NAME: MATHEW CASTILLO :40:00G.H I [id number] for patient [id number]:23:17 2022-10-20 20:34:00 [id number]:34:00 [facility] ([facility]ITALNephrology Progress NoteREPORT#:[id number] REPORT STATUS: SignedDATE:10/20/22 TIME: 2033 PATIENT: MATHEW CASTILLO UNIT #: [id number]# : [id number] [address] [birth year] AGE : 62 SEX: M ATTEND: Salinas Alba I MDADM AUTHOR: Toby Koehler MD * ALL edits or amendments must be made on the electronic/computer document * SubjectiveChief complaint:Concern for ruptured ureterHPI:The patient seen and examined. Resting in bed, denie s any N/V/D, tolerating PO intake w/o any issue. Black to gravity, good UOP. Objective GeneralVS/ I O:Vital Signs: Date Time Temp Pulse Resp B/P B/P Pulse O2 O2 Flow FiO2 Mean Ox Delivery Rate 10/20 1856 37.1 81 16 118/70 85.9 95 Room air 10/20 1620 37.1 77 15 114/71 85.4 97 Room air 10/20 0754 37.0 72 15 123/78 92.9 95 Room air 10/20 0424 36.5 74 16 115/70 84.9 98 Room air 10/20 0027 37.5 10/19 2351 37.8 84 16 118/69 85. 4 98 Room air 24 hour I O ending at 0700: 10/20 0700 10/19 1900 Intake Total 500 Output Total 1100 600 Balance -600 -600 Intake, Oral 500 Number 2 Bowel Movements Output, Urine 1100 600 PATIENT WEIGHT: Weight (lb): Weight (oz): Weight (kg): 68.000 MedicationsActive Meds + DC'd Last 24 HrsPiperacillin Sod/Tazobactam Sod (ZOSYN 3.375GM) 3.375 GM Q8H IV Sodium Chloride (SODIUM CHLORIDE 0.9% 100 ML) 100 MLSodium Chloride (SODIUM CHLORIDE 0.9%) 1,000 ML BOLUS STA IV (DC ) Ceftriaxone Sodium (ROCEPHIN 1000MG VIAL) 1,000 MG Q24H IV (CAN) Sodium Chloride (SODIUM CHLORIDE) 10 MLMagnesium Sulfate (MAGNESIUM SULFATE 2GM/SWFI 50ML) 50 ML ONCE ONE IV (DC) Cholecalciferol (VITAMIN D) 1,000 INTL.UNITS DAILY PO (CKD) Tamsulosin HCl (Flomax 0.4 mg) 0. 4 MG PC DIN PO Acetaminophen (TYLENOL) 650 [...] Dextrose/Water (DEXTROSE 10% IN WATER) 125 ML ASDIR PRN IV (CKD) Dextrose/Water (DEXTROSE 10% IN WATER) 250 ML ASDIR PRN IV (CKD ) Glucagon (GLUCAGON) 1 MG ASDIR PRN IM Insulin Human Lispro (HUMALOG) 0 AC HS SUBQ Physical ExamGeneral appearance: alert, awake, orientedHead/eyes: atraumatic, clear cornea, normal conjunctiva/sclera, normocephalicENT: normal noseNeck: supple/no meningismusCardiovascular: normal heart soundsRespiratory: decreased breath sounds, aerating well, no distressAbdomen: distendedGenitourinary: urinary catheter, urineExtremities: no edema ResultsFindings/Data:Laboratory Tests 10/20 10/20 10/20 10/20 10/20 1619 1208 0753 0403 0402 Chemistry Sodium (134 - 147 mEq/L) 138 Potassiu m (3.4 - 5.0 mEq/L) 3.4 Chloride (100 [...] Creatinine (0.6 - 1.3 mg/dL) 0.8 Glomerular Filt r Rate (80 - 90) 99.4 H Glucose [...] Coagulation INR (0.8 - 1.2) 1.1 PTT (Ada) (25.0 - 39.5 Seconds) 26.1 PT Patient/Control Mix (9.3 - 12.9 SECONDS) 12.7 Laboratory Tests 10/20 10/20 0410 0115 Hematology WBC (4.5 - 11.0 x10 3/uL) 17.6 H 19.1 H RBC (4.00 - 5.60 x10 6/uL) 4.08 4.20 Hgb (12.5 - 16.9 g/dL) 11.7 L 12.3 L Hct (37.5 - 50. 7 %) 36.5 L 37.2 L MCV (81.0 [...] - 32.0 %) 9.5 L 7.3 L [place] % (Auto) (4.8 - 9.0 %) 7.2 7.5 Eos % (Auto) (0.3 - 3.7 %) 2.6 2.2 Baso % (Auto) (0.0 - 2.0 %) 0.4 0.3 Neut # (Auto) (2.0 - 7.6 x10 3/uL) 13.75 H 15.38 H Lymph # (Auto) (1.0 - 3.8 x10 3/uL) 1.67 1.40 [place] # (Auto) (0.1 - 0.8 x10 3/uL) 1.27 H 1.44 H Eos # (Auto) (0.0 - 0.2 x10 3/uL) 0.46 H 0.42 H Baso # (Auto) (0.0 - 0.2 x10 3/uL) 0.07 0.05 Abs Immat Gran (auto) (0.00 - 0.03 x10 3/uL) 0.35 H 0.39 H Add Manual Diff NO NO Immature Gran % (0.0 - 2.0 %) 2.0 2.0 Nucleated RBC % (0 - 0 %) 0.0 0.0 Nucleated RBCs # (Man) (0.0 - 0.1 x10 3/uL) 0.00 0.00 Radiology data:Recent Impressions:RADIOLOGY - XR CHEST 1 V 10/20 0107 Report Impression - Status: SIGNED Entered: 10/20/2022 0215 IMPRESSION: Mild interstitial pulmonary edema. No focal consolidation. Impression By: [email or web address] - Vel Jacobs M.D. Diagnosis, Assessment PlanFree Text A P:Assessment and Plan: CHANDRA (Resolved)-Renal function improved and wnl, fole y to gravity, on bicarb gtt, will d/c now.-2/2 post-obstrucitve uropathy, monitor for post-obstructive diuresis. -UA, urine lytes requested-Per Urology note: Reportedly the patient had 3L of urine in his bladder. CT abdomen from [place] showed that the patien t has a very large distended bladder with hydroureteronephrosis and there does appear to b e maybe a fornicealrupture or some back pressure into the kidneys causing some inflammation and possibly a small amount of urine to come out through the forniceal areas that I do not see an actual ruptured ureter. The patient's creatinine has improved. His symptoms have totally resolved with catheter placement. This can be managedconservatively. The patient will follow u p as an outpatient.-Avoid nephrotoxicity monitor renal function and UOP Hypokalemia/Hypocalcemia/Hypomagnesemia-K+ and M g replaced. Vitamin D deficiency, vitamin D supplement.-Monitor for post-obstructive diuresi s and electrolyte imbalance Urinary Retention/BPH-Black to gravity, Urology following, on Tamsulosin-Per Urology note: Reportedly the patient had 3L of urine in his bladder. CT abdomen from [place] showed rosa t the patient has a very large distended bladder with hydroureteronephrosis and there does appear to be maybe a fornicealrupture or some back pressure into the kidneys causing some inflammation and possibly a small amount of urin e to come out through the forniceal areas that I d o not see an actual ruptured ureter. The patient's creatinine has improved. His symptoms have totally resolved with catheter placement. This can be managedconservatively. The patient will follow up as an outpatient. HTN-BP acceptable, monitor, on PRN IV hydralazine Schizophrenia-Seymour e medications resumed at 2150 RPT #:[id number] OF REPORTPRProgress [id number]:34:00G.[id number] l [facility] [place] for patient [id number]:50:59 2022-10-20 18:11:00 [id number]:11:00 [facility]Internal [facility] Prog. NoteREPORT#:[id number] REPORT STATUS: SignedDATE:10/20/22 TIME: 1810 PATIENT: MATHEW CASTILLO UNIT #: [id number]# : [id number] [address]DOB: [birth year] AGE : 62 SEX: M ATTEND: Salinas Alba AUTHOR: Sofia Cheng GAME ENGINEER * ALL edits or amendments must be made on the electronic/computer document * SubjectiveChief complaint:Abdominal distention, hydronephrosisHPI:62-year-old male with last medical history of, BPH, transferred from [place] for urology evaluation and treatment secondary to possible ruptured ureter. As per patient his abdomen was distended for at least for 2 days and hewas having difficulty urinating . Patient presented to outside facilityImaging revealed severe bilateral hydronephrosis with evidence of active urine extravasation and large amount of urine in the bladder pushing all the way up tothe abdomen. As per patient's daughter about 3 L of fluid was removed within 10minutes of Black insertion. Patient reports he has been experiencing urinary hesitancy for the past 2 to 3 years. Denies seeing a urologist. Patient deniesfever, chills, dysuria, hematuria, or othe r associated symptoms. Patient deniesshortness of breath, chest pain, nausea, vomiting, diarrhea, constipation.Admission vital signs blood pressur e 146/78, pulse 92, respiration 18, temperature 37.1, O2 sat 96% on room air. Abnormal labs:Hemoglobin 10.9, hematocrit 31.7, potassium 2.8, chloride 114, CO2 18, BUN 41, creatinine 2.1, glucose 643Calcium 4.9. Review of SystemsAdditional notes:Constitutional: Denies: chills, fever. ENT: Denies: earache, nasal congestion, sore throat. Respiratory: Denies: hemoptysis, parox nocturnal dyspnea, pleurisy, pleuritic pain, pneumonia, SOB, wheezing. Cardiovascular: Denies: chest pain, palpitations . GI: Reports: abdominal pain. Denies: nausea, vomiting. : Reports: flank pain, urinary retention. Denies: frequency, hematuria. Musculoskeletal: Arthritis: Denies: left upper, left lower, right upper, right lower. Neuro: Denies: change in LOC, confusion, dizziness, focal weakness, gait problem, headache, lightheaded, numbness, seizure, slurred speech, spinning sensation, syncope, unable to speak, vision change. Psych: Reports: anxiety. Denies: agitation, change in mental status, confusion, depression, homicidal ideation, hostile, insomnia, stress, suicidal ideation. Objective GeneralVS/I O:Vital Signs Date Temp Pulse Resp B/P B/P Mean Pulse Ox FiO2 10/19-10/20 36.5-37.8 72-84 15-16 114-123/69-78 84.7-92.9 95-98 Last Documented: Result Date Time Pulse Ox 97 10/20 1620 B/P 114/71 10/20 1620 B/P Mean 85.4 10/20 1620 O2 Delivery Room air 10/20 162 Temp 37.1 10/20 1620 Pulse 77 10/20 1620 Resp 15 10/20 1620 24 hour I O ending at 0700: 10/20 0700 07 5 1900 Intake Total 500 Output Total 1100 600 Balance -600 -600 Intake, Oral 500 Number 2 Bowel Movements Output, Urine 1100 600 PATIENT WEIGHT: Weight (lb): Weight (oz): Weight (kg): 68.000 Medications:Active Meds + DC'd Last 24 HrsPiperacillin Sod/Tazobactam Sod (ZOSYN 3.375GM) 3.375 GM Q8H IV Sodium Chloride (SODIUM CHLORIDE 0.9% 100 ML) 100 MLSodium Chloride (SODIUM CHLORIDE 0.9%) 1,000 ML BOLUS STA IV (DC ) Ceftriaxone Sodium (ROCEPHIN 1000MG VIAL) 1,000 MG Q24H IV (CAN) Sodium Chloride (SODIUM CHLORIDE) 10 MLMagnesium Sulfate (MAGNESIUM SULFATE 2GM/SWFI 50ML) 50 ML ONCE ONE IV (DC) Cholecalciferol (VITAMIN D) 1,000 INTL.UNITS DAILY PO (CKD) Tamsulosin HCl (Flomax 0.4 mg) 0. 4 MG PC DIN PO Acetaminophen (TYLENOL) 650 [...] Dextrose/Water (DEXTROSE 10% IN WATER) 125 ML ASDIR PRN IV (CKD) Dextrose/Water (DEXTROSE 10% IN WATER) 250 ML ASDIR PRN IV (CKD ) Glucagon (GLUCAGON) 1 MG ASDIR PRN IM Insulin Human Lispro (HUMALOG) 0 AC HS SUBQ ResultsFindings/Data:Laboratory Tests 10/20/22 0410:[Embedded Image Not Available] 10/20/22 0403:[Embedded Image Not Available] 10/20/22 0115:[Embedded Image Not Available]Laboratory Tests 10/20 10/20 10/20 10/20 10/20 1619 1208 0753 0403 0402 Chemistry Sodium (134 - 147 mEq/L ) 138 Potassium (3.4 - 5.0 mEq/L) 3.4 [...] - 147 mEq/L) 138 Potassium (3.4 - 5. 0 mEq/L) 3.0 L Chloride (100 - 108 mEq/L) 105 Carbon Dioxide (21 - 33 mEq/l) 30 Anion Gap (0 - 20) 6 BUN (7 - 18 mg/dL) 12 Creatinine (0.6 - 1. 3 mg/dL) 0.8 Glomerular Filtr Rate (80 - [...] - 54 ng/L) < 3 Total Protein (6. 4 - 8.2 g/dL) 5.0 L Albumin (3.4 - 5.0 g/dL) 2.30 L Lipase (13 - 57 U/L) 57 Laboratory Tests 10/20 0115 Coagulation INR (0.8 - 1.2) 1.1 PTT (Ada) (25.0 - 39.5 Seconds) 26.1 PT Patient/Control Mix (9.3 - 12.9 SECONDS) 12.7 Laboratory Tests 10/20 10/20 0410 0115 Hematology WBC (4.5 - 11. 0 x10 3/uL) 17.6 H 19.1 H RBC (4.00 - 5.60 x10 6/uL) 4.08 4.20 Hgb (12.5 - 16.9 g/dL) 11.7 L 12.3 L Hct (37.5 - 50.7 %) 36.5 L 37.2 L MCV (81.0 - 99.0 fL) 89.5 88.6 MCH (27.0 - 33.0 pg) 28.7 29.3 MCHC (33.0 - 37.0 g/dL) 32.[address] (11.5 - 14.5 %) 14.0 13.8 Plt Count (150 - 400 x10 3/uL) 341 328 MPV (7.0 - 9.0 fL) 9.5 H 8.9 Neut % (Auto) (56.0 - 77.0 %) 78.3 H 80.7 H Lymp h % (Auto) (14.0 - 32.0 %) 9.5 L 7.3 L [place] % (Auto) (4.8 - 9.0 %) 7.2 7.5 Eos % (Auto) (0.3 - 3.7 %) 2.6 2.2 Baso % (Auto) (0.0 - 2.0 %) 0.4 0.3 Neut # (Auto) (2.0 - 7.6 x10 3/uL) 13.75 H 15.38 H Lymph # (Auto) (1.0 - 3.8 x10 3/uL) 1.67 1.40 [place] # (Auto) (0.1 - 0.8 x10 3/uL) 1.27 H 1.44 H Eos # (Auto) (0.0 - 0.2 x10 3/uL) 0.46 H 0.42 H Baso # (Auto) (0.0 - 0.2 x10 3/uL) 0.07 0.05 Abs Immat Gran (auto) (0.00 - 0.03 x10 3/uL ) 0.35 H 0.39 H Add Manual Diff NO NO Immature Gran % (0.0 - 2.0 %) 2.0 2.0 Nucleated RBC % (0 - 0 %) 0.0 0.0 Nucleated RBCs # (Man) (0.0 - 0.1 x10 3/uL) 0.00 0.00 Radiology data:Recent Impressions:RADIOLOGY - XR CHEST 1 V 10/20 0107 Report Impression - Status: SIGNED Entered: 10/20/20225 IMPRESSION: Mild interstitial pulmonary edema. No focal consolidation. Impression By: [email or web address] - Vel Jacobs M.D. Diagnosis, Assessment PlanHospita l course to date:General appearance: alert, awakeHead/Eyes: atraumatic, clear cornea, EOMI, normocephalic, normal conjunctiva/sclera, normal eyelids/periorb, PERRLAENT: normal dentition, normal ear left, normal ear right, normal nose, normal pharynx, normal sinusCardiovascular: regular rate rhythmRespiratory: decreased breath sounds, clear to auscultation, no distress, no tendernessAbdomen/GI: active bowel sounds, soft Abdomen quadrants:LLQ normal bowel sounds, LLQ tenderness, LUQ normal bowel sounds, RLQ normal bowel sounds, RLQ tenderness, RUQ normal bowel soundsGenitourinary: foleyExtremities: moves all , no edema-all extremities, normal capillary refill, normal range of motion, normal sensory, normal motor functionNeuro/SKILLS TRAINER: alert, oriented X 3Skin: dry, intact, no gross abnormalitiesPsychiatry: no hallucinations, normal moodProblem List/A P: 1. Rupture of urete r Free Text DxA P NotesFree text DxA P notes:Assessment:62-year-old male with last medical history of, BPH, transferred from [place] for urology evaluation and treatment secondary to possible ruptured ureter. As per patient his abdomen was distended for at least for 2 days and hewas having difficulty urinating . Patient presented to outside facilityImaging revealed severe bilateral hydronephrosis with evidence of active urine extravasation and large amount of urine in the bladder pushing all the way up tothe abdomen. As per patient's daughter about 3 L of fluid was removed within 10minutes of Black insertion. Patient reports he has been experiencing urinary hesitancy for the past 2 to 3 years. 1. Abdominal distention, severe bilateral hydronephrosis, large amount of urinar y retention -Status post Black insertion large amount of urine was obtained2. Acute kidney injury3. Hypokalemia/hypocalcemia, hyperchloremia4. Metabolic acidosis5. Possible BPH6. Severe bilateral hydronephrosis7. Hypertension8. Schizophrenia Plan of care:Admit patient for further evaluation and treatmentUrology consultation in placeKeep Black to bedside drainageI's and O'sMonitor renal functionNephrology consultationReplace electrolytesStart tamsulosinBicarb drip startedRepeat CT of the abdomen and pelvis if neededRepeat labsFurther recommendation based on patient's clinical rqicky6710/17/2022Vital signs within normal limitsHypokalemia 3.2, hypomagnesemia 1.50Renal function is improved, discontinue bicarb drip, continue electrolyte control-replace as needed per nephroUrology is followingContinue tamsulosinBP control-on hydralazine as needed, pain controlContinue telemetry monitoring, intake and output, fall precautionFollow-up labs, continue medications and supportive care10/18/2022P is controlledHypocalcemia 7.4, hypomagnesemia 1.5, Hypokalemia 3.1MRSA surveillance screen pending resultsUro and Nephro are followingStarted on cholecalciferol p.o., still on tamsulosinElectrolyte control- magnesium and potassium replacedFall precautionFollow-up labs, continue medications and supportive care10/19/2022Vital signs within normal limits, POC glucose is controlledHypocalcemia 7.5, hypomagnesemia 1.65MRSA surveillance screen is negativeContinue electrolyte control, replace as neededPatient is able to tolerate p.o. intakeRenal function is improved, discontinue bicarb drip today, continue BP control on IV hydralazine per nephroContinue tamsulosin p.o.Pain control, glycemic control, fall precautionFollow-up labs, continue medications and present care3Patient has no new complaints, stableHypocalcemiaBlood culture pending resultsX-ray of the chest shows mild interstitial pulmonary edema. No focal consolidation. Consultants evaluations notedElectrolyte control replace magnesiumStarte d on IV antibiotic ZosynConsult placed to Dr. Brady kilpatrick for patients UTITroponin IBlood precaution, glycemic controlFollow-up EKG, labs, continue medications and supportive care at 0141 at 1009 RPT #:[id number] OF REPORTPRProgress [id number]:11:00G.[id number] katerine able for patient [id number]:42:15 2022-10-20 17:06:00 [id number]:06:00 [facility] ([facility])Infect Disease Consult NoteREPORT#:[id number] REPORT STATUS: SignedDATE:10/20/22 TIME: 1706 PATIENT: MATHEW CASTILLO UNIT #: [id number]# : [id number] ROOM/BED: 6630-1DOB: [birth year] AGE : 62 SEX: M ATTEND: Salinas Alba I MDADM AUTHOR: Skip Jaffe MD * ALL edits or amendments must be made on the electronic/computer document * History of Presen t IllnessHPI:Thank you for the consultation. Patient's current and old record reviewed. Order s initiated. See full dictated consultation report for further details. ASSESSMENT AND PLAN: Recurrent fever and leukocytosis most likely secondary to noninfectious causes. Recent complicated urinary tract infection with urinary retention. Rule out DVT and low-grade PE. Doubt any new nosocomial acquired infection. Repeat CB C with manual differential in the morning. Bilateral lower extremity venous Doppler studies . Inflammatory markers with the morning labs tomorrow. Continue empiric IV antibiotics for now. History - Adult longitudinalAllergies:Coded Allergies:No Known Allergies (10/16/22) at 2987 RPT #:[id number] OF REPORTYRHwldrypvuzaj3342-71-54X90:06:00G.PDOC 2 [id number] for patient eazfFYJGAZQJKFFIDQ7077-56-19G76:40:06 2022-10-20 01:07:00 [id number] [facility] [place] [address] PATIENT NAME: MATHEW CASTILLO ADMIT DATE: 10/16/22ACCOUN T NO: [id number] ROOM NO: G.6630 AGE: 62 REPORT TYPE: eELECTROCARDIOGRAM REPORT SEX: M ADMITTING PHYSICIAN:Salinas Alba MD ATTENDING PHYSICIAN:Salinas Alba MD Order:[id number] Reason : Sepsis Test Date/Time Stamp:[place] Oct 20 2022 01:07:09Blood Pressure : / mmHGVent. Rate : 076 BPM Atrial Rate : 076 BPM P-R Int : 124 ms QRS Dur : 080 ms QT Int : 414 ms P-R-T Axes : 058 -01 022 degrees QTc Int : 465 ms Normal sinus rhythmNormal ECGNo previous ECGs availableConfirmed by MD ESMER, ESMER ([id number]) on 10/21/2022 12:47:02 PM Referred By: Salinas Dukes Confirmed by:ESMER HERRON MD Electronicall y Signed by Esmer Herron MD on 10/21/22 at 1247 PATIENT NAME: MATHEW CASTILLO .[id number] AVAvailable for patient [id number]:47:27 2022-10-19 22:43:00 [id number]:43:00 [facility]aleInternal Medicine Prog. NoteREPORT#:[id number] REPORT STATUS: SignedDATE:10/19/22 TIME: 2242 PATIENT: MATHEW CASTILLO UNIT #: [id number]# : [id number] ROOM/BED: 6630-1DOB: [birth year] AGE: 62 SEX: M ATTEND: Salinas Alba MDA AUTHOR: Sofia Cheng NP * ALL edits or amendments must be made on the electronic/computer document * SubjectiveChief complaint:Abdominal distention, hydronephrosisHPI:62-year-old male with last medical history of, BPH, transferred from [place] for urology evaluation and treatment secondary to possible ruptured ureter. As per patient his abdomen was distended for at least for 2 days and hewas having difficulty urinating . Patient presented to outside facilityImaging revealed severe bilateral hydronephrosis with evidence of active urine extravasation and large amount of urine in the bladder pushing all the way up tothe abdomen. As per patient's daughter about 3 L of fluid was removed within 10minutes of Black insertion. Patient reports he has been experiencing urinary hesitancy for the past 2 to 3 years. Denies seeing a urologist. Patient deniesfever, chills, dysuria, hematuria, or othe r associated symptoms. Patient deniesshortness of breath, chest pain, nausea, vomiting, diarrhea, constipation.Admission vital signs blood pressur e 146/78, pulse 92, respiration 18, temperature 37.1, O2 sat 96% on room air. Abnormal labs:Hemoglobin 10.9, hematocrit 31.7, potassium 2.8, chloride 114, CO2 18, BUN 41, creatinine 2.1, glucose 643Calcium 4.9. Review of SystemsAdditional notes:Constitutional: Denies: chills, fever. ENT: Denies: earache, nasal congestion, sore throat. Respiratory: Denies: hemoptysis, parox nocturnal dyspnea, pleurisy, pleuritic pain, pneumonia, SOB, wheezing. Cardiovascular: Denies: chest pain, palpitations . GI: Reports: abdominal pain. Denies: nausea, vomiting. : Reports: flank pain, urinary retention. Denies: frequency, hematuria. Musculoskeletal: Arthritis: Denies: left upper, left lower, right upper, right lower. Neuro: Denies: change in LOC, confusion, dizziness, focal weakness, gait problem, headache, lightheaded, numbness, seizure, slurred speech, spinning sensation, syncope, unable to speak, vision change. Psych: Reports: anxiety. Denies: agitation, change in mental status, confusion, depression, homicidal ideation, hostile, insomnia, stress, suicidal ideation. Objective GeneralVS/I O:Laboratory Tests 10/19/22 0347:[Embedded Image Not Available] 10/18/22 0543:[Embedded Image Not Available]Laboratory Tests 10/19 10/19 10/19 10/19 10/19 1917 1615 1135 0725 0347 Chemistry Sodium (134 - 147 mEq/L ) 139 Potassium (3.4 - 5.0 mEq/L) 3.6 [...] 109 96 Calcium (8.0 - 10.5 mg/dL) 7. 5 L Magnesium (1.80 - 2.40 mg/dL) 1.65 [...] Magnesium (1.80 - 2.40 mg/dL) 1.48 L 10/1840 2012 1119 9914 0715 Chemistry POC Glucose (70 - 110 MG/DL) 104 129 H 177 H 105 Vitamin D 25-Hydroxy (30 - 100 ng/mL) 25.5 L 10/17 07 Chemistry Sodium (134 - 147 mEq/L) 140 Potassium (3.4 - 5.0 mEq/L) 3.2 L Chloride (100 - 108 mEq/L) 105 Carbon Dioxide (2 1 - 33 mEq/l) 26 Anion Gap (0 - 20) 12 BUN (7 - 1 8 mg/dL) 18 Creatinine (0.6 - 1.3 mg/dL) [...] Albumin (3.4 - 5.0 g/dL) 2.40 L Laborator y Tests 10/19 10/18 10/17 0347 0536 1222 Hematology WBC (4.5 - 11.0 x10 3/uL) 9.5 8.9 11. 5 H RBC (4.00 - 5.60 x10 6/uL) 4.04 4.00 4.17 Hgb (12.5 - 16.9 g/dL) 11.7 L 11.8 L 12.0 L Hct (37. 5 - 50.7 %) 35.5 L 35.4 L 35.7 L MCV (81.0 - 99.0 fL) 87.9 88.5 85.6 MCH (27.0 - 33.0 pg) 29.0 29.5 28.8 MCHC (33.0 - 37.0 g/dL) 33.0 33.3 33.6 RDW (11.5 - 14.5 %) 14.0 14.0 14.2 Plt Count (15 0 - 400 x10 3/uL) 313 294 285 MPV (7.0 - 9.0 fL) 9.5 H 9.8 H 9.9 H Neut % (Auto) (56.0 - 77.0 %) 64.4 62.2 71.5 Lymph % (Auto) (14.0 - 32.0 %) 15.7 15.6 10.6 L [place] % (Auto) (4.8 - 9.0 %) 8. 5 10.1 H 12.8 H Eos % (Auto) (0.3 - 3.7 %) 6.0 H 7.5 H 2.7 Baso % (Auto) (0.0 - 2.0 %) 0.7 0.7 0. 4 Neut # (Auto) (2.0 - 7.6 x10 3/uL) 6.09 5.53 8.2 3 H Lymph # (Auto) (1.0 - 3.8 x10 3/uL) 1.48 1.39 1.22 [place] # (Auto) (0.1 - 0.8 x10 3/uL) 0.80 0.9 0 H 1.47 H Eos # (Auto) (0.0 - 0.2 x10 3/uL) 0.57 H 0.67 H 0.31 H Baso # (Auto) (0.0 - 0.2 x10 3/uL) 0.07 0.06 0.05 Abs Immat Gran (auto) (0.00 - 0.0 3 x10 3/uL) 0.44 H 0.35 H 0.23 H Add Manual Diff N O NO NO Immature Gran % (0.0 - 2.0 %) 4.7 H 3.9 H 2.0 Nucleated RBC % (0 - 0 %) 0.0 0.0 0.0 Nucleated RBCs # (Man) (0.0 - 0.1 x10 3/uL) 0.00 0.00 0.00 Laboratory Tests 10/19 346 Urines Urine Color (YEL/STRAW) YELLOW Urine Appearance (CLEAR) SL CLOUDY Urine pH (5.0 - 7.0) 5.0 Ur Specific [place] (1.005 - 1.030) 1.015 Urine Protein (NEGATIVE) 1+ H Urine Glucose (UA) (NEGATIVE) NEGATIVE Urine Ketones (NEGATIVE) NEGATIVE Urine Blood (NEGATIVE) 3+ H Urine Nitrite (NEGATIVE) NEGATIVE Urine Bilirubin (NEGATIVE) NEGATIVE Urine Urobilinogen (0.2 - 1. 0 mg/dL) 0.2 Ur Leukocyte Esterase (NEGATIVE) 1+ H Urine RBC (0 - 3 RBC/HPF) >50 H Urine WBC (0 - 3 WBC/HPF) >50 H Ur Squamous Epith Cells (NONE SEE N /HPF) 0-5 Urine Bacteria (NONE SEEN /HPF) TRACE Hyaline Casts (NONE SEEN /LPF) 11-20 Urine Mucus (NONE SEEN /LPF) 1+ Urine Osmolality (300 - 1000 MOS/KG) 575 Ur Random Creatinine (mg/dL) 111.9 U Random Total Protein (mg/dL) 79 Ur Random Sodium (MEQ/L) 102 Microbiology Date/Time Procedure - Status Source Growth 10/19 346 MRSA DNA Surveillance Screen - COMP NASAL Chemistry: 10/19 1615 1135 072 5 0347 Chemistry Sodium (134 - 147 mEq/L) [...] (8.0 - 10.5 mg/dL) 7.5 L Magnesium (1.8 0 - 2.40 mg/dL) 1.65 L Microbiology:10/19 346 NASAL: MRSA DNA Surveillance Screen - COMP Vital Signs: Date Time Temp Pulse Resp B/P B/P Pulse O 2 O2 Flow FiO2 Mean Ox Delivery Rate 10/19 1918 37.2 78 16 114/70 84.7 97 Room air 10/20 1615 37.2 80 14 105/68 80.3 97 10/19 1136 37.0 85 17 142/80 100.6 98 Room air 10/19 0727 37.0 83 14 127/67 87.0 95 Room air 10/19 0414 37.2 68 16 124/68 87.0 97 Room air 10/18 2307 37.1 66 16 137/76 96.5 97 Room air 10/19 0700 10/18 2300 10/18 1500 Intake Total 480 240 Output Total 700 875 750 Balance -220 -635 -750 Intake, Oral 480 240 Number 0 1 1 Bowel Movements Output, Urine 700 875 750 Current Medications Sig/Mark Start time Last Medication Dose Route Stop Time Status Admin Cholecalciferol 1,000 INTL.UNITS DAILY 10/18 0900 CKD 10/19 PO 11/17 0859 0914 Tamsulosin HCl 0.4 MG PC DIN 10/16 1800 AC 10/19 PO 11/15 1759 1713 Acetaminophen 650 MG Q4H PRN PRN 10/16 1345 AC PO 11/15 1344 Docusate Sodium 100 MG BID PRN PRN 10/16 1345 AC PO 11/15 1344 Haloperidol 10 MG BID 10/16 1345 AC 10/19 PO 11/15 1330 2237 Hydralazine HCl 10 MG Q6H PRN HI N 10/16 1345 AC IV 11/15 1344 Hydrocodone Bitart/ 1 TAB Q6H PRN PRN 10/16 1345 AC Acetaminophen PO 10/21 1344 Ondansetron HCl 4 MG Q4H PRN PRN 10/16 1345 AC IV 11/15 1344 Benztropine Mesylate 1 MG DAILY 10/16 1330 AC 10/19 PO 11/15 1329 0914 Dextrose/Water 125 ML ASDIR PRN 10/16 1130 CKD IV 11/15 1129 Dextrose/Water 250 ML ASDIR HI N 10/16 1130 CKD IV 11/15 1129 Glucagon 1 MG ASDIR PRN 10/16 1130 AC IM 11/15 1129 Insulin Human Lispro 0 AC HS 10/16 1130 AC SUBQ 11/15 1129 Vital SignsDate Temp Pulse Resp B/P B/P Mean Pulse Ox PvT504/14-10/19 37.0-37.2 66-85 14-17 105-142/67-80 80.3-100.6 95-98 Last Documented: Result Date Time Pulse Ox 97 10/19 1918 B/P 114/70 10/19 1918 B/P Mean 84.7 10/19 1918 O2 Delivery Room air 10/19 1918 Temp 37.2 10/19 191 9 Pulse 78 10/19 1918 Resp 16 10/19 1918 24 hour I O ending at 0700: 10/19 0700 10/18 1900 Intake Total 720 Output Total 1100 1225 Balance -380 -1225 Intake, Oral 720 Number 0 2 Bowel Movements Output, Urine 1100 1225 PATIENT WEIGHT : Weight (lb): Weight (oz): Weight (kg): 68.000 Diagnosis, Assessment PlanHospital course to date:General appearance: alert, awakeHead/Eyes: atraumatic, clear cornea, EOMI, normocephalic, normal conjunctiva/sclera, normal eyelids/periorb, PERRLAENT: normal dentition, normal ear left, normal ear right, normal nose, normal pharynx, normal sinusCardiovascular: regular rate rhythmRespiratory: decreased breath sounds, clear to auscultation, no distress, no tendernessAbdomen/GI: active bowel sounds, soft Abdomen quadrants:LLQ normal bowel sounds, LLQ tenderness, LUQ normal bowel sounds, RLQ normal bowel sounds, RLQ tenderness, RUQ normal bowel soundsGenitourinary: foleyExtremities: moves all , no edema-all extremities, normal capillary refill, normal range of motion, normal sensory, normal motor functionNeuro/SKILLS TRAINER: alert, oriented X 3Skin: dry, intact, no gross abnormalitiesPsychiatry: no hallucinations, normal moodProblem List/A P: 1. Rupture of urete r Free Text DxA P NotesFree text DxA P notes:Assessment:62-year-old male with last medical history of, BPH, transferred from [place] for urology evaluation and treatment secondary to possible ruptured ureter. As per patient his abdomen was distended for at least for 2 days and hewas having difficulty urinating . Patient presented to outside facilityImaging revealed severe bilateral hydronephrosis with evidence of active urine extravasation and large amount of urine in the bladder pushing all the way up tothe abdomen. As per patient's daughter about 3 L of fluid was removed within 10minutes of Black insertion. Patient reports he has been experiencing urinary hesitancy for the past 2 to 3 years. 1. Abdominal distention, severe bilateral hydronephrosis, large amount of urinar y retention -Status post Black insertion large amount of urine was obtained2. Acute kidney injury3. Hypokalemia/hypocalcemia, hyperchloremia4. Metabolic acidosis5. Possible BPH6. Severe bilateral hydronephrosis7. Hypertension8. Schizophrenia Plan of care:Admit patient for further evaluation and treatmentUrology consultation in placeKeep Black to bedside drainageI's and O'sMonitor renal functionNephrology consultationReplace electrolytesStart tamsulosinBicarb drip startedRepeat CT of the abdomen and pelvis if neededRepeat labsFurther recommendation based on patient's clinical [id number]/17/2022Vital signs within normal limitsHypokalemia 3.2, hypomagnesemia 1.50Renal function is improved, discontinue bicarb drip, continue electrolyte control-replace as needed per nephroUrology is followingContinue tamsulosinBP control-on hydralazine as needed, pain controlContinue telemetry monitoring, intake and output, fall precautionFollow-up labs, continue medications and supportive care10/18/2022P is controlledHypocalcemia 7.4, hypomagnesemia 1.5, Hypokalemia 3.1MRSA surveillance screen pending resultsUro and Nephro are followingStarted on cholecalciferol p.o., still on tamsulosinElectrolyte control- magnesium and potassium replacedFall precautionFollow-up labs, continue medications and supportive care10/19/2022Vital signs within normal limits, POC glucose is controlledHypocalcemia 7.5, hypomagnesemia 1.65MRSA surveillance screen is negativeContinue electrolyte control, replace as neededPatient is able to tolerate p.o. intakeRenal function is improved, discontinue bicarb drip today, continue BP control on IV hydralazine per nephroContinue tamsulosin p.o.Pain control, glycemic control, fall precautionFollow-up labs, continue medications and present care at 0229 at 1514 RPT #:[id number] OF REPORTPRProgress [id number]:43:00G.[id number] l able for patient [id number]:29:44 2022-10-19 20:14:00 [id number]:14:00 [facility] ([facility])Nephrology Progress NoteREPORT#:[id number] REPORT STATUS: SignedDATE:10/19/22 TIME: 2013 PATIENT: MATHEW CASTILLO UNIT #: [id number]# : [id number] ROOM[facility]BED[facility]DOB: [birth year] AGE : 62 SEX: M ATTEND: Salinas Alba I [facility] AUTHOR: Toby Koehler MD * ALL edits or amendments must be made on the electronic/computer document * SubjectiveChief complaint:Concern for ruptured ureterHPI:The patient seen and examined. Resting in bed, denie s any N/V/D, tolerating PO intake w/o any issue. Black to gravity, good UOP. Objective GeneralVS/ I O:Vital Signs: Date Time Temp Pulse Resp B/P B/P Pulse O2 O2 Flow FiO2 Mean Ox Delivery Rate 10/19 1919 [...] Intake, Oral 720 Number 0 2 Bowel Movement s Output, Urine 1100 1225 PATIENT WEIGHT: Weight (lb): Weight (oz): Weight (kg): 68.000 MedicationsActive Meds + DC'd Last 24 HrsCholecalciferol (VITAMIN D) 1,000 INTL.UNITS DAILY PO (CKD) Tamsulosin HCl (Flomax 0.4 mg) 0. 4 MG PC DIN PO Acetaminophen (TYLENOL) 650 [...] Dextrose/Water (DEXTROSE 10% IN WATER) 125 ML ASDIR PRN IV (CKD) Dextrose/Water (DEXTROSE 10% IN WATER) 250 ML ASDIR PRN IV (CKD ) Glucagon (GLUCAGON) 1 MG ASDIR PRN IM Insulin Human Lispro (HUMALOG) 0 AC HS SUBQ Physical ExamGeneral appearance: alert, awake, orientedHead/eyes: atraumatic, clear cornea, normal conjunctiva/sclera, normocephalicENT: normal noseNeck: supple/no meningismusCardiovascular: normal heart soundsRespiratory: decreased breath sounds, aerating well, no distressAbdomen: distendedGenitourinary: urinary catheter, urineExtremities: no edema ResultsFindings/Data:Laboratory Tests 10/19 10/05 5 10/19 10/19 10/18 1615 1135 0725 0347 [...] % (Auto) (14.0 - 32.0 %) 15.7 [place] % (Auto) (4.8 - 9.0 %) 8.5 Eos % (Auto) (0.3 - 3.7 %) 6.0 H Baso % (Auto) (0.0 - 2.0 %) 0.7 Neut # (Auto) (2.0 - 7.6 x10 3/uL) 6.09 Lymph # (Auto) (1.0 - 3.8 x10 3/uL) 1.48 [place] # (Auto) (0.1 - 0.8 x10 3/uL) 0.80 Eos # (Auto) (0.0 - 0.2 x10 3/uL) 0.57 H Baso # (Auto) (0.0 - 0.2 x10 3/uL) 0.07 Abs Immat Gran (auto) (0.00 - 0.03 x10 3/uL ) 0.44 H Add Manual Diff NO Immature Gran % (0.0 - 2.0 %) 4.7 H Nucleated RBC % (0 - 0 %) 0.0 Nucleated RBCs # (Man) (0.0 - 0.1 x10 3/uL) 0.00 Laboratory Tests 10/19 0347 Urines Urine Color (YEL/STRAW) YELLOW Urine Appearance (CLEAR) SL CLOUDY Urine pH (5.0 - 7.0) 5.0 Ur Specific [place] (1.005 - 1.030) 1.015 Urine Protein (NEGATIVE) [...] Surveillance Screen - COMP NASAL Diagnosis, Assessment PlanFree Text A P:Assessment and Plan : CHANDRA (Resolved)-Renal function improved and wnl, black to gravity, on bicarb gtt, will d/c now.-2/2 post-obstrucitve uropathy, monitor for post-obstructive diuresis. -UA, urine lytes requested-Per Urology note: Reportedly the patient had 3L of urine in his bladder. CT abdomen from [place] showed that the patien t has a very large distended bladder with hydroureteronephrosis and there does appear to b e maybe a fornicealrupture or some back pressure into the kidneys causing some inflammation and possibly a small amount of urine to come out through the forniceal areas that I do not see an actual ruptured ureter. The patient's creatinine has improved. His symptoms have totally resolved with catheter placement. This can be managedconservatively. The patient will follow u p as an outpatient.-Avoid nephrotoxicity monitor renal function and UOP Hypokalemia/Hypocalcemia/Hypomagnesemia-K+ and M g replaced. Vitamin D deficiency, vitamin D supplement.-Monitor for post-obstructive diuresi s and electrolyte imbalance Urinary Retention/BPH-Black to gravity, Urology following, on Tamsulosin-Per Urology note: Reportedly the patient had 3L of urine in his bladder. CT abdomen from [place] showed rosa t the patient has a very large distended bladder with hydroureteronephrosis and there does appear to be maybe a fornicealrupture or some back pressure into the kidneys causing some inflammation and possibly a small amount of urin e to come out through the forniceal areas that I d o not see an actual ruptured ureter. The patient's creatinine has improved. His symptoms have totally resolved with catheter placement. This can be managedconservatively. The patient will follow up as an outpatient. HTN-BP acceptable, monitor, on PRN IV hydralazine Schizophrenia-Seymour e medications resumed at 2148 RPT #:[id number] OF REPORTPRProgress [id number]:14:00G.[id number] katerine able for patient [id number]:49:08 2022-10-18 20:26:00 [id number]:26:00 [facility] Prog. NoteREPORT#:[id number] REPORT STATUS: SignedDATE:10/18/22 TIME: 2025 PATIENT: MATHEW CASTILLO UNIT #: [id number]# : [id number] [address] [birth year] AGE : 62 SEX: M ATTEND: Salinas Alba I [facility] AUTHOR: Sofia Cheng NP * ALL edits or amendments must be made on the electronic/computer document * SubjectiveChief complaint:Abdominal distention, hydronephrosisHPI:62-year-old male with last medical history of, BPH, transferred from [place] for urology evaluation and treatment secondary to possible ruptured ureter. As per patient his abdomen was distended for at least for 2 days and hewas having difficulty urinating . Patient presented to outside facilityImaging revealed severe bilateral hydronephrosis with evidence of active urine extravasation and large amount of urine in the bladder pushing all the way up tothe abdomen. As per patient's daughter about 3 L of fluid was removed within 10minutes of Black insertion. Patient reports he has been experiencing urinary hesitancy for the past 2 to 3 years. Denies seeing a urologist. Patient deniesfever, chills, dysuria, hematuria, or othe r associated symptoms. Patient deniesshortness of breath, chest pain, nausea, vomiting, diarrhea, constipation.Admission vital signs blood pressur e 146/78, pulse 92, respiration 18, temperature 37.1, O2 sat 96% on room air. Abnormal labs:Hemoglobin 10.9, hematocrit 31.7, potassium 2.8, chloride 114, CO2 18, BUN 41, creatinine 2.1, glucose 643Calcium 4.9. Review of SystemsAdditional notes:Constitutional:Denies: chills, fever. ENT:Denies: earache, nasal congestion, sore throat. Respiratory:Denies: hemoptysis, parox nocturnal dyspnea, pleurisy, pleuritic pain, pneumonia, SOB, wheezing. Cardiovascular:Denies: chest pain, palpitations. GI:Reports: abdominal pain. Denies: nausea, vomiting. :Reports: flank pain, urinary retention. Denies: frequency, hematuria. Musculoskeletal: Arthritis: Denies: left upper, left lower, right upper, right lower. Neuro:Denies: change in LOC, confusion, dizziness, focal weakness, gait problem, headache, lightheaded, numbness, seizure, slurre d speech, spinning sensation, syncope, unable to speak, vision change. Psych:Reports: anxiety. Denies: agitation, change in mental status, confusion, depression, homicidal ideation, hostile, insomnia, stress, suicidal ideation. Objective GeneralVS/I O:Vital Signs Date Temp Pulse Resp B/P B/P Mean Pulse Ox FiO2 10/18 37.1-37.4 69-88 14-17 120-133/67-81 85.0-98.2 96-99 Last Documented: Result Date Time Pulse O x 97 10/18 1854 B/P 132/81 10/18 1854 B/P Mean 98. 2 10/18 1854 O2 Delivery Room air 10/18 1854 Temp 37.1 10/18 1854 Pulse 75 07/14 1855 Resp 16 10/18 1855 24 hour I O ending at 0700: 10/18 070 0 10/17 1900 Intake Total 480 Output Total 1999 Balance 480 -2000 Intake, Oral 480 Number 2 Jerica l Movements Number Voids 2 Output, Urine 1999 PATIENT WEIGHT: Weight (lb): Weight (oz): Weight (kg): 68.000 Medications:Active Meds + DC'd Last 24 HrsMagnesium Sulfate (MAGNESIUM SULFATE 4GM/SWFI 100ML) 100 ML ONCE ONE IV (DC) Potassiu m Chloride (POTASSIUM CHLORIDE 20MEQ TAB.ER) 40 ME Q ONCE ONE PO (DC) Cholecalciferol (VITAMIN D) 1,000 INTL.UNITS DAILY PO (CKD) Tamsulosin HCl (Flomax 0.4 mg) [...] Dextrose/Water (DEXTROSE 10% IN WATER) 125 ML ASDIR PRN IV (CKD) Dextrose/Water (DEXTROSE 10% IN WATER) 250 ML ASDIR PRN IV (CKD) Glucagon (GLUCAGON) 1 MG ASDIR PRN IM Insulin Human Lispr o (HUMALOG) 0 AC HS SUBQ ResultsFindings/Data:Laboratory Tests 10/18/22 0543:[Embedded Image Not Available]Laboratory Tests 10/18 10/18 10/18 10/18 10/18 1726 1118 0740 0543 0540 Chemistry Sodium (134 - 147 mEq/L ) 138 Potassium (3.4 - 5.0 mEq/L) 3.1 L Chloride (100 - 108 mEq/L) 104 Carbon Dioxide (21 - 33 mEq/l) 30 Anion Gap (0 - 20) 7 BUN (7 - 18 mg/dL ) 12 Creatinine (0.6 - 1.3 mg/dL) 0.8 [...] - 99.0 fL) 88.5 MCH (27.0 - 33. 0 pg) 29.5 MCHC (33.0 - 37.0 g/dL) 33.3 RDW (11.5 - 14.5 %) 14.0 Plt Count (150 - 400 x10 3/uL) 294 MPV (7.0 - 9.0 fL) 9.8 H Neut % (Auto) (56.0 - 77.0 %) 62.2 Lymph % (Auto) (14.0 - 32.0 %) 15.6 [place] % (Auto) (4.8 - 9.0 %) 10.1 H Eos % (Auto) (0.3 - 3.7 %) 7.5 H Baso % (Auto) (0.0 - 2.0 %) 0.7 Neut # (Auto) (2.0 - 7.6 x10 3/uL) 5.53 Lymph # (Auto) (1.0 - 3.8 x10 3/uL) 1.39 [place] # (Auto) (0.1 - 0.8 x10 3/uL) 0.90 H Eos # (Auto) (0.0 - 0.2 x10 3/uL) 0.67 H Baso # (Auto) (0.0 - 0.2 x10 3/uL) 0.06 Abs Immat Gran (auto) (0.00 - 0.03 x10 3/uL) 0.35 H Add Manual Diff NO Immatur e Gran % (0.0 - 2.0 %) 3.9 H Nucleated RBC % (0 - 0 %) 0.0 Nucleated RBCs # (Man) (0.0 - 0.1 x10 3/uL) 0.00 Diagnosis, Assessment PlanHospital course to date:General appearance: alert, awakeHead/Eyes: atraumatic, clear cornea, EOMI, normocephalic, normal conjunctiva/sclera, normal eyelids/periorb, PERRLAENT: normal dentition, normal ear left, normal ear right, normal nose, normal pharynx, normal sinusCardiovascular: regular rate rhythmRespiratory: decreased breath sounds, clear to auscultation, no distress, no tendernessAbdomen/GI: active bowel sounds, soft Abdomen quadrants:LLQ normal bowel sounds, LLQ tenderness, LUQ normal bowel sounds, RLQ normal bowel sounds, RLQ tenderness, RUQ normal bowel soundsGenitourinary: foleyExtremities: moves all , no edema-all extremities, normal capillary refill, normal range of motion, normal sensory, normal motor functionNeuro/SKILLS TRAINER: alert, oriented X 3Skin: dry, intact, no gross abnormalitiesPsychiatry: no hallucinations, normal moodProblem List/A P: 1. Rupture of urete r Free Text DxA P NotesFree text DxA P notes:Assessment:62-year-old male with last medical history of, BPH, transferred from [place] for urology evaluation and treatment secondary to possible ruptured ureter. As per patient his abdomen was distended for at least for 2 days and hewas having difficulty urinating . Patient presented to outside facilityImaging revealed severe bilateral hydronephrosis with evidence of active urine extravasation and large amount of urine in the bladder pushing all the way up tothe abdomen. As per patient's daughter about 3 L of fluid was removed within 10minutes of Black insertion. Patient reports he has been experiencing urinary hesitancy for the past 2 to 3 years. 1. Abdominal distention, severe bilateral hydronephrosis, large amount of urinar y retention -Status post Black insertion large amount of urine was obtained2. Acute kidney injury3. Hypokalemia/hypocalcemia, hyperchloremia4. Metabolic acidosis5. Possible BPH6. Severe bilateral hydronephrosis7. Hypertension8. Schizophrenia Plan of care:Admit patient for further evaluation and treatmentUrology consultation in placeKeep Black to bedside drainageI's and O'sMonitor renal functionNephrology consultationReplace electrolytesStart tamsulosinBicarb drip startedRepeat CT of the abdomen and pelvis if neededRepeat labsFurther recommendation based on patient's clinical pplsqv9310/17/2022Vital signs within normal limitsHypokalemia 3.2, hypomagnesemia 1.50Renal function is improved, discontinue bicarb drip, continue electrolyte control-replace as needed per nephroUrology is followingContinue tamsulosinBP control-on hydralazine as needed, pain controlContinue telemetry monitoring, intake and output, fall precautionFollow-up labs, continue medications and supportive care10/18/2022P is controlledHypocalcemia 7.4, hypomagnesemia 1.5, Hypokalemia 3.1MRSA surveillance screen pending resultsUro and Nephro are followingStarted on cholecalciferol p.o., still on tamsulosinElectrolyte control- magnesium and potassium replacedFall precautionFollow-up labs, continue medications and supportive care at 2012 at 1301 RPT #:[id number] OF REPORTPRProgress [id number]:26:00G.[id number] l able for patient [id number]:12:32 2022-10-18 17:48:00 [id number]:48:00 [facility] ([facility])Nephrology Progress NoteREPORT#:[id number] REPORT STATUS: SignedDATE:10/18/22 TIME: 8 PATIENT: MATHEW CASTILLO UNIT #: [id number]# : [id number] ROOM/BED: 6630-1DOB: [birth year] AGE : 62 SEX: M ATTEND: Salinas Alba AUTHOR: Carmen Kemp * ALL edits or amendments must be made on the electronic/computer document * See AddendumCarmen Kemp 10/18/22 1748:SubjectiveChief complaint:Concern for ruptured ureterHPI:The patient seen and examined . Resting in bed, denies any N/V/D, tolerating PO intake w/o any issue. Black to gravity, good UOP . Review of SystemsROS comments:A 12 point ROS is obtained and is negative unless specified in HPI Objective GeneralVS/I O:Vital Signs: Date Time Temp Pulse Resp B/P [...] Output Total 2000 Balance 480 -2000 Intake, Ora l 480 Number 2 Bowel Movements Number Voids 2 Output, Urine 2000 PATIENT WEIGHT: Weight (lb): Weight (oz): Weight (kg): 68.000 MedicationsActive Meds + DC'd Last 24 HrsMagnesium Sulfate (MAGNESIUM SULFATE 4GM/SWFI 100ML) 100 ML ONCE ONE IV (DC) Potassium Chlorid e (POTASSIUM CHLORIDE 20MEQ TAB.ER) 40 MEQ ONCE ON E PO (DC) Cholecalciferol (VITAMIN D) 1,000 INTL.UNITS DAILY PO (CKD) Tamsulosin HCl (Flomax 0.4 mg) 0.4 MG PC DIN PO Acetaminophen (TYLENOL) 650 MG Q4H PRN PRN PO Docusate Sodium (COLACE) 100 MG BID PRN PRN PO Haloperidol (HALDOL) 10 MG BID PO Hydralazine HCl (APRESOLINE) 10 MG Q6H HI N PRN IV Hydrocodone Bitart/Acetaminophen (NORCO 5/325) 1 TAB Q6H PRN PRN PO Ondansetron HCl (ZOFRAN) 4 MG Q4H PRN PRN IV Sodium Bicarbonate (SODIUM BICARBONATE) 100 ML Q11H IV (DC) Sodium Chloride (0.45% Sodium Chloride) 1,000 MLBenztropine Mesylate (COGENTIN) 1 MG DAILY PO Dextrose/Water (DEXTROSE 10% IN WATER) 125 ML ASDIR PRN IV (CKD) Dextrose/Water (DEXTROSE 10% IN WATER) 250 ML ASDIR PRN IV (CKD) Glucagon (GLUCAGON) 1 MG ASDIR PRN IM Insulin Human Lispr o (HUMALOG) 0 AC HS SUBQ Dietitian nutrition assessmentThe data set between the solid lines has been imported from the dietitian's assessment. _ BMI Calculated: 22.1Nutrition related diagnosis: Nutrition diagnosis details: Nutrition problem: Nutrition etiology: Nutrition signs and symptoms: Nutritio n prescription: Dietitian name: Assessment completed: _ Physical ExamGeneral appearance : alert, awake, oriented, no acute distressHead/eyes: atraumatic, clear cornea, normal conjunctiva/sclera, normocephalicENT: normal noseNeck: supple/no meningismusCardiovascular: normal heart soundsRespiratory: decreased breath sounds, aerating well, no distressAbdomen: distendedGenitourinary: urinary catheter, urineExtremities: no edema ResultsFindings/Data:Laboratory Tests 10/18 1118 0740 0543 0540 2012 Chemistry Sodium [...] % (Auto) (14.0 - 32.0 %) 15.6 [place] % (Auto) (4.8 - 9.0 %) 10.1 H Eos % (Auto) (0.3 - 3.7 %) 7.5 H Baso % (Auto) (0.0 - 2.0 %) 0.7 Neut # (Auto) (2.0 - 7.6 x10 3/uL) 5.53 Lymph # (Auto) (1.0 - 3.8 x10 3/uL) 1.39 [place] # (Auto) (0.1 - 0.8 x10 3/uL) 0.90 H Eos # (Auto) (0.0 - 0.2 x10 3/uL) 0.67 H Baso # (Auto ) (0.0 - 0.2 x10 3/uL) 0.06 Abs Immat Gran (auto) (0.00 - 0.03 x10 3/uL) 0.35 H Add Manual Diff N O Immature Gran % (0.0 - 2.0 %) 3.9 H Nucleated RB C % (0 - 0 %) 0.0 Nucleated RBCs # (Man) (0.0 - 0. 1 x10 3/uL) 0.00 Diagnosis, Assessment PlanFree Text A P:Assessment and Plan: CHANDRA (Resolved)-Renal function improved and wnl, fole y to gravity, on bicarb gtt, will d/c now.-2/2 post-obstrucitve uropathy, monitor for post-obstructive diuresis. -UA, urine lytes requested-Per Urology note: Reportedly the patient had 3L of urine in his bladder. CT abdomen from [place] showed that the patien t has a very large distended bladder with hydroureteronephrosis and there does appear to b e maybe a fornicealrupture or some back pressure into the kidneys causing some inflammation and possibly a small amount of urine to come out through the forniceal areas that I do not see an actual ruptured ureter. The patient's creatinine has improved. His symptoms have totally resolved with catheter placement. This can be managedconservatively. The patient will follow u p as an outpatient.-Avoid nephrotoxicity monitor renal function and UOP Hypokalemia/Hypocalcemia/Hypomagnesemia-K+ and M g replaced. Vitamin D deficiency, vitamin D supplement.-Monitor for post-obstructive diuresi s and electrolyte imbalance Urinary Retention/BPH-Black to gravity, Urology following, on Tamsulosin-Per Urology note: Reportedly the patient had 3L of urine in his bladder. CT abdomen from [place] showed rosa t the patient has a very large distended bladder with hydroureteronephrosis and there does appear to be maybe a fornicealrupture or some back pressure into the kidneys causing some inflammation and possibly a small amount of urin e to come out through the forniceal areas that I d o not see an actual ruptured ureter. The patient's creatinine has improved. His symptoms have totally resolved with catheter placement. This can be managedconservatively. The patient will follow up as an outpatient. HTN-BP acceptable, monitor, on PRN IV hydralazine Schizophrenia-Seymour e medications resumed Discussed the plan with the patient, patient's nurse, and . Toby Koehler 10/18/221930:Attestations Physician AttestationReviewed findings plan:Patient examined Renal function improved an d wnl, black to gravity, off bicarb drip-2/2 post-obstrucitve uropathy, monitor for post-obstructive diuresis, check lytes in am. urology evaluation noted. Agree with above A/P at 1750 at 1931 Addendum 1: 10/18/221936 by Toby Koehler MD K and magnesium supplementation. at 193 RPT #:[id number] OF REPORTPRProgress [id number]:48:00G.[id number] l able for patient [id number]:50:34 2022-10-17 22:43:00 [id number]:43:00 [facility]Internal [facility] Prog. NoteREPORT#:[id number] REPORT STATUS: SignedDATE:10/17/22 TIME: 2242 PATIENT: MATHEW CASTILLO UNIT #: [id number]# : [id number] [address] [birth year] AGE : 62 SEX: M ATTEND: Salinas Alba I [facility] AUTHOR: Sofia Cheng GAME ENGINEER * ALL edits or amendments must be made on the electronic/computer document * SubjectiveChief complaint:Abdominal distention, hydronephrosisHPI:62-year-old male with last medical history of, BPH, transferred from [place] for urology evaluation and treatment secondary to possible ruptured ureter. As per patient his abdomen was distended for at least for 2 days and hewas having difficulty urinating . Patient presented to outside facilityImaging revealed severe bilateral hydronephrosis with evidence of active urine extravasation and large amount of urine in the bladder pushing all the way up tothe abdomen. As per patient's daughter about 3 L of fluid was removed within 10minutes of Black insertion. Patient reports he has been experiencing urinary hesitancy for the past 2 to 3 years. Denies seeing a urologist. Patient deniesfever, chills, dysuria, hematuria, or othe r associated symptoms. Patient deniesshortness of breath, chest pain, nausea, vomiting, diarrhea, constipation.Admission vital signs blood pressur e 146/78, pulse 92, respiration 18, temperature 37.1, O2 sat 96% on room air. Abnormal labs:Hemoglobin 10.9, hematocrit 31.7, potassium 2.8, chloride 114, CO2 18, BUN 41, creatinine 2.1, glucose 643Calcium 4.9. Review of SystemsAdditional notes:Constitutional:Denies: chills, fever. ENT:Denies: earache, nasal congestion, sore throat. Respiratory:Denies: hemoptysis, parox nocturnal dyspnea, pleurisy, pleuritic pain, pneumonia, SOB, wheezing. Cardiovascular:Denies: chest pain, palpitations. GI:Reports: abdominal pain. Denies: nausea, vomiting. :Reports: flank pain, urinary retention. Denies: frequency, hematuria. Musculoskeletal: Arthritis: Denies: left upper, left lower, right upper, right lower. Neuro:Denies: change in LOC, confusion, dizziness, focal weakness, gait problem, headache, lightheaded, numbness, seizure, slurre d speech, spinning sensation, syncope, unable to speak, vision change. Psych:Reports: anxiety. Denies: agitation, change in mental status, confusion, depression, homicidal ideation, hostile, insomnia, stress, suicidal ideation. Objective GeneralVS/I O:Vital SignsDate Temp Pulse Resp B/P B/P Mean Pulse Ox YkE784/12-10/17 37.2-37.5 83-100 16-18 119-133/70-79 86.3-96.8 93-95 Last Documented: Result Date Time Pulse Ox 94 10/17 2013 B/P 119/70 10/17 2013 B/P Mean 86.3 10/17 2013 O2 Delivery Room air 10/17 2013 Temp 37.5 10/17 2013 Pulse 83 10/17 2013 Resp 1 6 10/17 2013 24 hour I O ending at 0700: 10/17 070 0 10/16 1900 Intake Total 800 Output Total 1200 3200 Balance -400 -3200 Intake, Oral 800 Number 3 1 Bowel Movements Output, Urine 1200 3200 PATIEN T WEIGHT: Weight (lb): Weight (oz): Weight (kg): 68.000 Medications:Active Meds + DC'd Last 24 HrsCholecalciferol (VITAMIN D) 1,000 INTL.UNITS DAILY PO (CKD) Magnesium Sulfate (MAGNESIUM SULFATE 2GM/SWFI 50ML) 50 ML ONCE ONE IV (DC) Potassium Chloride (POTASSIUM CHLORIDE 20MEQ TAB.ER) 40 MEQ ONCE ONE PO (DC) Tamsulosin [...] PRN IV Sodium Bicarbonate (SODIUM BICARBONATE) 100 M L Q11H IV (DC) Sodium Chloride (0.45% Sodium Chloride) 1,000 MLBenztropine Mesylate (COGENTIN ) 1 MG DAILY PO Dextrose/Water (DEXTROSE 10% IN WATER) 125 ML ASDIR PRN IV (CKD) Dextrose/Water (DEXTROSE 10% IN WATER) 250 ML ASDIR PRN IV (CKD ) Glucagon (GLUCAGON) 1 MG ASDIR PRN IM Insulin Human Lispro (HUMALOG) 0 AC HS SUBQ ResultsFindings/Data:Laboratory Tests 10/17/22 0713:[Embedded Image Not Available]Laboratory Tests 10/17 10/17 10/17 10/17 1119 0728 0713 071 3 Chemistry Sodium (134 - 147 mEq/L) 140 [...] Glucose (70 - 110 MG/DL) 177 H 10 5 Calcium (8.0 - 10.5 mg/dL) 8.4 Phosphorus (2.5 - 4.9 MG/DL) 2.6 Magnesium (1.80 - 2.40 mg/dL) 1.50 L Total Bilirubin (0.0 - 1.0 mg/dL) 0.50 T (15 - 37 IUnit/L) 23 ALT (30 - 65 IUnit/L) 24 L Total Alk Phosphatase (20 - 125 IUnit/L) 62 Tota l Protein (6.4 - 8.2 g/dL) 5.6 L Albumin (3.4 - 5. 0 g/dL) 2.40 L Vitamin D 25-Hydroxy (30 - 100 ng/mL) 25.5 L Laboratory Tests 10/17 0713 Hematology WBC (4.5 - 11.0 x10 3/uL) 11.5 H RBC (4.00 - 5.60 x10 6/uL) 4.17 Hgb (12.5 - 16.9 g/dL) 12.0 L Hct (37.5 - 50.7 %) 35.7 L MCV (81. 0 - 99.0 fL) 85.6 MCH (27.0 - 33.0 pg) 28.8 MCHC (33.0 - 37.0 g/dL) 33.6 RDW (11.5 - 14.5 %) 14.2 Plt Count (150 - 400 x10 3/uL) 285 MPV (7.0 - 9.0 fL) 9.9 H Neut % (Auto) (56.0 - 77.0 %) 71.5 Lymph % (Auto) (14.0 - 32.0 %) 10.6 L [place] % (Auto) (4.8 - 9.0 %) 12.8 H Eos % (Auto) (0.3 - 3.7 %) 2.7 Baso % (Auto) (0.0 - 2.0 %) 0.4 Neut # (Auto) (2.0 - 7.6 x10 3/uL) 8.23 H Lymph # (Auto) (1.0 - 3.8 x10 3/uL) 1.22 [place] # (Auto) (0.1 - 0.8 x10 3/uL) 1.47 H Eos # (Auto) (0.0 - 0.2 x10 3/uL) 0.31 H Baso # (Auto) (0.0 - 0.2 x1 0 3/uL) 0.05 Abs Immat Gran (auto) (0.00 - 0.03 x1 0 3/uL) 0.23 H Add Manual Diff NO Immature Gran % (0.0 - 2.0 %) 2.0 Nucleated RBC % (0 - 0 %) 0.0 Nucleated RBCs # (Man) (0.0 - 0.1 x10 3/uL) 0.00 Diagnosis, Assessment PlanHospital course to date:General appearance: alert, awakeHead/Eyes: atraumatic, clear cornea, EOMI, normocephalic, normal conjunctiva/sclera, normal eyelids/periorb, PERRLAENT: normal dentition, normal ear left, normal ear right, normal nose, normal pharynx, normal sinusCardiovascular: regular rate rhythmRespiratory: decreased breath sounds, clear to auscultation, no distress, no tendernessAbdomen/GI: active bowel sounds, soft Abdomen quadrants:LLQ normal bowel sounds, LLQ tenderness, LUQ normal bowel sounds, RLQ normal bowel sounds, RLQ tenderness, RUQ normal bowel soundsGenitourinary: foleyExtremities: moves all , no edema-all extremities, normal capillary refill, normal range of motion, normal sensory, normal motor functionNeuro/SKILLS TRAINER: alert, oriented X 3Skin: dry, intact, no gross abnormalitiesPsychiatry: no hallucinations, normal moodProblem List/A P: 1. Rupture of urete r Free Text DxA P NotesFree text DxA P notes:Assessment:62-year-old male with last medical history of, BPH, transferred from [place] for urology evaluation and treatment secondary to possible ruptured ureter. As per patient his abdomen was distended for at least for 2 days and hewas having difficulty urinating . Patient presented to outside facilityImaging revealed severe bilateral hydronephrosis with evidence of active urine extravasation and large amount of urine in the bladder pushing all the way up tothe abdomen. As per patient's daughter about 3 L of fluid was removed within 10minutes of Black insertion. Patient reports he has been experiencing urinary hesitancy for the past 2 to 3 years. 1. Abdominal distention, severe bilateral hydronephrosis, large amount of urinar y retention -Status post Black insertion large amount of urine was obtained2. Acute kidney injury3. Hypokalemia/hypocalcemia, hyperchloremia4. Metabolic acidosis5. Possible BPH6. Severe bilateral hydronephrosis7. Hypertension8. Schizophrenia Plan of care:Admit patient for further evaluation and treatmentUrology consultation in placeKeep Black to bedside drainageI's and O'sMonitor renal functionNephrology consultationReplace electrolytesStart tamsulosinBicarb drip startedRepeat CT of the abdomen and pelvis if neededRepeat labsFurther recommendation based on patient's clinical cgqocd2010/17/2022Vital signs within normal limitsHypokalemia 3.2, hypomagnesemia 1.50Renal function is improved, discontinue bicarb drip, continue electrolyte control-replace as needed per nephroUrology is followingContinue tamsulosinBP control-on hydralazine as needed, pain controlContinue telemetry monitoring, intake and output, fall precautionFollow-up labs, continue medications and supportive care at 0210 at 1300 RPT #:[id number] OF REPORTPRProgress [id number]:43:00G.[id number] l able for patient [id number]:10:49 2022-10-17 17:41:00 [id number]:41:00 [facility] ([facility])Urology Progress NoteREPORT#:[id number] REPORT STATUS: SignedDATE:10/17/22 TIME: 1741 PATIENT: MATHEW CASTILLO UNIT #: [id number]# : [id number] [address]DOB: [birth year] AGE : 62 SEX: M ATTEND: Fernanda RhodesnezSalinas I MDADM AUTHOR: Dave Jones MD * ALL edits or amendments must be made on the electronic/computer document * SubjectivePatient reports: no complaints Objective GeneralVS/I O:Last Documented: Result Date Time Pulse Ox 94 10/17 1117 B/P 129/75 10/17 1117 B/P Mean 92.9 10/17 1117 Temp 37.5 10/17 1117 Pulse 92 10/17 1117 Resp 18 10/17 1117 O2 Delivery Room air 10/17 0638 24 hour I O ending at 0700: 10/17 070 0 10/16 1900 Intake Total 800 Output Total 1200 3200 Balance -400 -3200 Intake, Oral 800 Number 3 1 Bowel Movements Output, Urine 1200 3200 PATIEN T WEIGHT: Weight (lb): Weight (oz): Weight (kg): 68.000 Physical ExamGeneral appearance: alert, awakeGenitourinary: Genitourinary: catheter in situ ResultsFindings/Data:Laboratory Tests: 10/05 3 10/17 10/17 10/17 1119 0728 0713 0713 Chemistry Sodium (134 - 147 mEq/L) 140 Potassium (3.4 - 5. 0 mEq/L) 3.2 L Chloride (100 - 108 [...] (30 - 65 IUnit/L) 24 L Total Al k Phosphatase (20 - 125 IUnit/L) 62 Total Protein (6.4 - 8.2 g/dL) 5.6 L Albumin (3.4 - 5.0 g/dL) 2.40 L Vitamin D 25-Hydroxy (30 - 100 ng/mL) 25. 5 L Hematology WBC (4.5 - 11.0 x10 3/uL) 11.5 H RBC (4.00 - 5.60 x10 6/uL) 4.17 Hgb (12.5 - 16.9 g/dL) 12.0 L Hct (37.5 - 50.7 %) 35.7 L MCV (81. 0 - 99.0 fL) 85.6 MCH (27.0 - 33.0 pg) 28.8 MCHC (33.0 - 37.0 g/dL) 33.6 RDW (11.5 - 14.5 %) 14.2 Plt Count (150 - 400 x10 3/uL) 285 MPV (7.0 - 9. 0 fL) 9.9 H Neut % (Auto) (56.0 - 77.0 %) 71.5 Lymph % (Auto) (14.0 - 32.0 %) 10.6 L [place] % (Auto) (4.8 - 9.0 %) 12.8 H Eos % (Auto) (0.3 - 3.7 %) 2.7 Baso % (Auto) (0.0 - 2.0 %) 0.4 Neut # (Auto) (2.0 - 7.6 x10 3/uL) 8.23 H Lymph # (Auto) (1.0 - 3.8 x10 3/uL) 1.22 [place] # (Auto) (0.1 - 0.8 x10 3/uL) 1.47 H Eos # (Auto) (0.0 - 0.2 x10 3/uL) 0.31 H Baso # (Auto) (0.0 - 0.2 x1 0 3/uL) 0.05 Abs Immat Gran (auto) (0.00 - 0.03 x1 0 3/uL) 0.23 H Add Manual Diff NO Immature Gran % (0.0 - 2.0 %) 2.0 Nucleated RBC % (0 - 0 %) 0.0 Nucleated RBCs # (Man) (0.0 - 0.1 x10 3/uL) 0.00 Diagnosis, Assessment PlanFree Text A P:back pressure edema and possible forniceal rupture from retention - SCr 0.9 - F/U outpt ofr cystoscopy. Home with black Electronically Mel d by Dave Jones MD on 10/17/22 at 1742 RPT #:[id number] OF REPORTPRProgress [id number]:41:00G.[id number] l able for patient [id number]:42:28 2022-10-17 13:46:00 [id number]:46:00 [facility] ([facility] Progress NoteREPORT#:[id number] REPORT STATUS: SignedDATE:10/17/22 TIME: 1345 PATIENT: MATHEW CASTILLO UNIT #: [id number]# : [id number] [address] [birth year] AGE : 62 SEX: M ATTEND: Salinas Alba I [facility] AUTHOR: Carmen Kemp * ALL edit s or amendments must be made on the electronic/computer document * Carmen Kemp 10/17/22 1346:SubjectiveChief complaint:Concern for ruptured ureterHPI:The patient seen and examined. Resting in bed, denies any N/V/D, tolerating PO intake w/o any issue. Black to gravity, good UOP. Review of SystemsROS comments:A 12 point ROS is obtained and is negative unless specified in HPI Objective GeneralVS/I O:Vital Signs: Date Time Temp Pulse Resp B/P B/P Pulse O2 O2 Flow FiO2 Mean Ox Delivery Rate 10/17 1117 37.5 92 18 129/75 92.9 94 10/17 0638 37.3 95 17 127/73 90.7 95 Room air 10/17 0302 37.5 97 16 130/76 94.2 93 Room air 10/16 2308 37.2 100 16 133/79 96.8 95 Room air 10/16 2111 37.4 92 16 156/82 107.1 95 Room air 2 4 hour I O ending at 0700: 10/17 0700 10/16 1900 Intake Total 800 Output Total 1200 3200 Balance -400 -3200 Intake, Oral 800 Number 3 1 Bowel Movements Output, Urine 1200 3200 PATIENT WEIGHT : Weight (lb): Weight (oz): Weight (kg): 68.000 MedicationsActive Meds + DC'd Last 24 HrsMagnesium Sulfate (MAGNESIUM SULFATE 2GM/SWFI 50ML) 50 ML ONCE ONE IV (DC) Potassium Chloride (POTASSIUM CHLORIDE 20MEQ TAB.ER) 40 MEQ ONCE ON E PO (DC) Tamsulosin HCl (Flomax 0.4 mg) 0.4 MG PC DIN PO Acetaminophen (TYLENOL) 650 MG Q4H PRN HI N PO Docusate Sodium (COLACE) 100 MG BID PRN PRN P O Haloperidol (HALDOL) 10 MG BID PO Hydralazine HC l (APRESOLINE) 10 MG Q6H PRN PRN IV Hydrocodone Bitart/Acetaminophen (NORCO 5/325) 1 TAB Q6H PRN PRN PO Ondansetron HCl (ZOFRAN) 4 MG Q4H PRN PRN IV Sodium Bicarbonate (SODIUM BICARBONATE) 100 M L Q11H IV (DCr) Sodium Chloride (0.45% Sodium Chloride) 1,000 MLBenztropine Mesylate (COGENTIN ) 1 MG DAILY PO Dextrose/Water (DEXTROSE 10% IN WATER) 125 ML ASDIR PRN IV (CKD) Dextrose/Water (DEXTROSE 10% IN WATER) 250 ML ASDIR PRN IV (CKD ) Glucagon (GLUCAGON) 1 MG ASDIR PRN IM Insulin Human Lispro (HUMALOG) 0 AC HS SUBQ Dietitian nutrition assessmentThe data set between the solid lines has been imported from the dietitian's assessment. _ BMI Calculated: 22.1Nutrition related diagnosis: Nutrition diagnosis details: Nutrition problem: Nutrition etiology: Nutrition signs and symptoms: Nutritio n prescription: Dietitian name: Assessment completed: _ Physical ExamGeneral appearance : alert, awake, oriented, no acute distressHead/eyes: atraumatic, clear cornea, normal conjunctiva/sclera, normocephalicENT: normal noseNeck: supple/no meningismusCardiovascular: normal heart soundsRespiratory: decreased breath sounds, aerating well, no distressAbdomen: distendedGenitourinary: urinary catheter, urineExtremities: no edema ResultsFindings/Data:Laboratory Tests 10/17 10/05 3 10/17 10/17 1119 0728 0713 0713 Chemistry Sodiu m (134 - 147 mEq/L) 140 Potassium (3.4 - 5.0 mEq/L ) 3.2 L Chloride (100 - 108 mEq/L) [...] AST (15 - 37 IUnit/L) 23 ALT (3 0 - 65 IUnit/L) 24 L Total Alk [...] - 99.0 fL) 85.6 MCH (27.0 - 33. 0 pg) 28.8 MCHC (33.0 - 37.0 g/dL) 33.6 RDW (11.5 - 14.5 %) 14.2 Plt Count (150 - 400 x10 3/uL) 285 MPV (7.0 - 9.0 fL) 9.9 H Neut % (Auto) (56.0 - 77.0 %) 71.5 Lymph % (Auto) (14.0 - 32.0 %) 10.6 L [place] % (Auto) (4.8 - 9.0 %) 12.8 H Eos % (Auto ) (0.3 - 3.7 %) 2.7 Baso % (Auto) (0.0 - 2.0 %) 0. 4 Neut # (Auto) (2.0 - 7.6 x10 3/uL) 8.23 H Lymph # (Auto) (1.0 - 3.8 x10 3/uL) 1.22 [place] # (Auto) (0.1 - 0.8 x10 3/uL) 1.47 H Eos # (Auto) (0.0 - 0.2 x10 3/uL) 0.31 H Baso # (Auto) (0.0 - 0.2 x1 0 3/uL) 0.05 Abs Immat Gran (auto) (0.00 - 0.03 x1 0 3/uL) 0.23 H Add Manual Diff NO Immature Gran % (0.0 - 2.0 %) 2.0 Nucleated RBC % (0 - 0 %) 0.0 Nucleated RBCs # (Man) (0.0 - 0.1 x10 3/uL) 0.00 Diagnosis, Assessment PlanFree Text A P:Assessment and Plan: CHANDRA (Resolved)-Renal function improved and wnl, black to gravity, on bicarb gtt, will d/c now.-2/2 post-obstrucitve uropathy, monitor for post-obstructive diuresis. -UA, urine lytes requested-Per Urology note: Reportedly the patient had 3L of urine in his bladder. CT abdomen from [place] showed rosa t the patient has a very large distended bladder with hydroureteronephrosis and there does appear to be maybe a fornicealrupture or some back pressure into the kidneys causing some inflammation and possibly a small amount of urin e to come out through the forniceal areas that I d o not see an actual ruptured ureter. The patient's creatinine has improved. His symptoms have totally resolved with catheter placement. This can be managedconservatively. The patient will follow up as an outpatient.-Avoid nephrotoxicity monitor renal function and UOP Hypokalemia/Hypocalcemia/Hypomagnesemia-K+ and M g replaced. Vitamin D deficiency, vitamin D supplement.-Monitor for post-obstructive diuresi s and electrolyte imbalance Urinary Retention/BPH-Black to gravity, Urology following, on Tamsulosin-Per Urology note: Reportedly the patient had 3L of urine in his bladder. CT abdomen from [place] showed rosa t the patient has a very large distended bladder with hydroureteronephrosis and there does appear to be maybe a fornicealrupture or some back pressure into the kidneys causing some inflammation and possibly a small amount of urin e to come out through the forniceal areas that I d o not see an actual ruptured ureter. The patient's creatinine has improved. His symptoms have totally resolved with catheter placement. This can be managedconservatively. The patient will follow up as an outpatient. HTN-BP acceptable, monitor, on PRN IV hydralazine Schizophrenia-Seymour e medications resumed Discussed the plan with the patient, patient's nurse, and . Toby Koehler 10/17/22 2232:Attestations Physician AttestationReviewed findings plan: Patient examined Renal function improved and wnl , black to gravity, off bicarb drip-2/2 post-obstrucitve uropathy, monitor for post-obstructive diuresis, check lytes in am. urology evaluation noted. Agree with above A/P at 0329 at 7024 RPT #:[id number] OF REPORTPRProgress [id number]:46:00G.[id number] l able for patient [id number]:00:00 2022-10-16 15:13:00 [id number] [address] PATIENT NAME: MATHEW CASTILLO ADMIT DATE: 10/16/22ACCOUN T NO: [id number] ROOM NO: [id number] AGE: 62 REPORT TYPE: CONSULTATION REPORT SEX: M ADMITTING PHYSICIAN:Salinas Alba MD ATTENDING PHYSICIAN:Salinas Alba MD CONSULTATION DATE:10/16/2022 REASON FOR CONSULTATION: Hydronephrosis, urinary retention. HISTORY OF PRESENT ILLNESS: This is a 62-year-old male with a history ofschizophrenia who was sent in from [place]. He had reportedly almost 3liters of urine in his bladder. He has been having increasing abdominal painfor the last few days. He has a history of BPH with lower urinary tractsymptoms with worsening symptoms over the years. PAST MEDICAL HISTORY: Schizophrenia, BPH. SURGICAL HISTORY: Noncontributory. SOCIAL HISTORY: No alcohol. No drug use. Smokes daily. Good social support. ALLERGIES: NO KNOWN DRUG ALLERGIES. REVIEW OF SYSTEMS: A 14-point review of system was obtaine d and is negativeother than HPI. The patient reports no discomfort. PHYSICAL EXAMINATION:RON L SIGNS: Blood pressure 134/86, pulse 94, respiratory rate 18, xahipvsvstl05.1, 93% on keon m air.GENERAL: Alert. No acute distress, nontoxic.HEENT: Normocephalic, atraumatic. Nontoxic.NECK: Supple.HEART: Regular rate and rhythm.LUNGS: Respirations unlabored.ABDOMEN: Soft, nontender, nondistended. No CVA tenderness.EXTREMITIES: Moving all extremities well. LABORATORY DATA: White blood cell count 11 , hemoglobin 10.9, platelets 207.Creatinine was 2. 1 on admission, now down to 1.4. ASSESSMENT AND PLAN: We reviewed the CT scan of the abdomen and pelvis from [facility]. The patient has a very large distended bladder withhydroureteronephrosi s and there does appear to be maybe a forniceal rupture orsome back pressure into the kidneys causing some inflammation and possibly asmall amount of urine to come out through the fornicea l areas that I do not seean actual ruptured ureter . The patient's creatinine has improved. His symptomshave totally resolved with catheter placement. This can be managedconservatively. Th e patient will follow up as an outpatient. PATIENT NAME: MATHEW CASTILLO Dictated By: Dave Jones MD Rodrick e Dictated: 10/16/2022 15:13:22Date Transcribed: 10/16/2022 16:06:29/Yulisa #: [id number] ID: [id number] and Edited by Dave Jones MD On 11/12/22 1:37:06 PM at 0138 PATIENT NAME: MATHEW CASTILLO ACCOUN T #: [id number]:06:00G.H I [id number] for patient [id number]:40:23 2022-10-16 12:39:00 [id number]:39:00 [facility] Consultation NoteREPORT#:[id number] REPORT STATUS : SignedDATE:10/16/22 TIME: 1239 PATIENT: MATHEW CASTILLO UNIT #: [id number]# : [id number] [address] [birth year] AGE: 62 SEX: M ATTEND: Salinas Alba MDA AUTHOR: Carmen Kemp * ALL edits or amendments must be made on the electronic/computer document * Carmen Kemp 10/16/22 1239:History of Present IllnessRequesting clinician: Salinas Deshpande/DONAVON Blackeason for consult:AKIElectrolyt e imbalanceChief complaint:Concern for ruptured ureterPCP:PCP: No Primary or Family Physician HPI: is a pleasant 62 years old male with PMH significant for schizophrenia, HTN, BPH , current everyday smoker. The patient states that on Friday last week, he noted abdominal distention, associated w/ pain and was unable to urinate. He was seen by his daughter Friday wh o took him to ER in [place]. He had CT abdome n which revealed b/l hydronephrosis and concern fo r possible ureteral rupture. [facility] Initial V S at the ER showed a temperature of 37.1c, pulse 92/min, respration 18/min, BP 146/78 mm Hg and SpO2 96%. Laboratory data showed normal WBC, hypokalemia w/ K+ 2.8, CO2 18, azotemia w/ BUN 41, Cr 2.1, elevated blood sugar of 643, hypocalcemia w/ Ca 4.9. Nephrology is consulted for the management of CHANDRA and elecrolyte imbalance. The patient seen and examined in ER. He is AAOX3, resting in bed, breathing comfortably on RA. Black to gravity w/ good UOP, states abdominal pain is much better. Denies any known h/o CKD, no h/o renal calculi. History - Adult longitudinalPast medical history:Reports: Hypertension, BPH, Schizophrenia. Additional surgical history:None reportedAdditional family history:NoncontributoryAlcohol use: Denies EtOH useDrug use: Denies recreational drugsSmoking status for patients 13 years old or older: Current every day smokerDate last smoked: 10/15/22Medications:Home Medications: Medication Dose/Rte/Freq Days Qty Entered Last Max Daily Dose Reviewed BENZTROPINE 1 MG PO DAILY 10/16/22 10/16/22 Strength: 0.5 MG TAB 0923 0925 HALOPERIDOL (HALDOL) 10 MG PO BID 10/16/22 10/16/22 Strength: 10 MG TAB 0925 0925 Current Hospital Medications:Anti-Infective Agents Sig/Mrak Start time Last Medication Dose Route Stop Time Status Admin Ceftriaxone Sodium 1,000 MG X1ED STA 10/17 415 DC 10/16 (ROCEPHIN 1000MG IV 10/16 417 0503 VIAL) Sodium Chloride 10 ML (SODIUM CHLORIDE) Autonomic Drugs Sig/Mark Start time Last Medication Dose Route Stop Time Status Admin Tamsulosin HCl 0.4 MG PC DIN 10/16 1800 AC 10/16 (Flomax 0.4 mg) PO 11/15 1759 1747 Benztropine Mesylate 1 MG DAILY 10/16 1330 AC 10/16 (COGENTIN) PO 11/15 1329 1446 Cardiovascular Drugs Sig/Mark Start time Last Medication Dose Route Stop Time Status Admin Hydralazine HCl 10 MG Q6H PRN PRN 10/16 1345 AC (APRESOLINE) IV 11/15 1344 Central Nervous Syste m Agents Sig/Mark Start time Last Medication Dose Route Stop Time Status Admin Haloperidol 10 MG BID 10/16 2100 DC (HALDOL) PO 11/15 2059 Acetaminophen 650 MG Q4H PRN PRN 10/16 1345 AC (TYLENOL) PO 11/15 1344 Haloperidol 10 MG BID 10/16 1345 AC 10/16 (HALDOL) PO 11/15 1330 1446 Hydrocodone Bitart/ 1 TAB Q6H PRN PRN 10/16 1345 AC Acetaminophen PO 10/21 1344 (NORCO 5/325) Electrolytic, Caloric, And Scott Sig/Mark Start maye e Last Medication Dose Route Stop Time Status Admin Sodium Bicarbonate 100 ML Q11H 10/16 1345 CKD 10/16 (SODIUM BICARBONATE) IV 11/15 1344 165 0 Sodium Chloride 1,000 ML (0.45% Sodium Chloride) Calcium Gluconate 100 ML ONCE ONE 10/16 1130 DC 10/16 (Calcium Gluconate 2 IV 10/16 1149 1449 GM/NS 100 mL (B2)) Dextrose/Water 125 ML ASDIR PRN 10/16 1130 CKD (DEXTROSE 10% IN IV 11/15 112 9 WATER) Dextrose/Water 250 ML ASDIR PRN 10/16 113 0 CKD (DEXTROSE 10% IN IV 11/15 1129 WATER) Potassium Chloride 50 ML Q1HR 10/16 1000 DC 10/05 2 (KCL 10MEQ/SWFI 50ML) IV 10/16 1159 1219 Potassium Chloride 40 MEQ Q2H 10/16 0930 DC (POTASSIUM CHLORIDE PO 10/16 1131 20MEQ TAB.ER) Gastrointestinal Drugs Sig/Mark Start time Last Medication Dose Route Stop Time Status Admin Docusate Sodium 100 MG BID PRN PRN 10/16 1345 AC (COLACE) PO 11/15 1344 Ondansetron HCl 4 MG Q4H PRN PRN 10/16 1345 AC (ZOFRAN) IV 11/15 1344 Hormones And Synthetic Substit Sig/Mark Start maye e Last Medication Dose Route Stop Time Status Admi n Glucagon 1 MG ASDIR PRN 10/16 1130 AC (GLUCAGON ) IM 11/15 1129 Insulin Human Lispro 0 AC HS 10/16 1130 AC (HUMALOG) SUBQ 11/15 1129 Allergies:Coded Allergies:No Known Allergies (10/16/22) Review of SystemsAdditional notes:A 1 2 point ROS is obtained and is negative unless specified in HPI Objective GeneralVS/I O:Vital Signs: Date Time Temp Pulse Resp B/P B/P Pulse O 2 O2 Flow FiO2 Mean Ox Delivery Rate 10/16 1646 37.4 93 14 159/90 112.9 95 10/16 0905 37.1 94 18 134/86 102 93 Room air 10/16 0330 90 146/80 107 96 10/16 0315 97 146/78 105 95 10/16 0308 37.1 9 2 18 146/78 100 96 Room air 24 hour I O ending at 0700: 10/16 0700 10/15 1900 Intake Total Output Total Balance Patient 68 kg Weight Weight Bed scale Measurement Method PATIENT WEIGHT: Weight (lb): Weight (oz): Weight (kg): 68.000 Medications:Active Meds + DC'd Last 24 HrsHaloperidol (HALDOL) 10 MG BID PO (DC) Tamsulosin HCl (Flomax 0.4 mg) 0.4 MG PC DIN PO Acetaminophen (TYLENOL) 650 MG Q4H PRN PRN PO Docusate Sodium (COLACE) 100 MG BID PRN PRN PO Haloperidol (HALDOL) 10 MG BID PO Hydralazine HC l (APRESOLINE) 10 MG Q6H PRN PRN IV Hydrocodone Bitart/Acetaminophen (NORCO 5/325) 1 TAB Q6H PRN PRN PO Ondansetron HCl (ZOFRAN) 4 MG Q4H PRN HI N IV Sodium Bicarbonate (SODIUM BICARBONATE) 100 M L Q11H IV (CKD) Sodium Chloride (0.45% Sodium Chloride) 1,000 MLBenztropine Mesylate (COGENTIN ) 1 MG DAILY PO Calcium Gluconate (Calcium Gluconate 2 GM/NS 100 mL (B2)) 100 ML ONCE ONE I V (DC) Dextrose/Water (DEXTROSE 10% IN WATER) 125 ML ASDIR PRN IV (CKD) Dextrose/Water (DEXTROSE 10% IN WATER) 250 ML ASDIR PRN IV (CKD) Glucagon (GLUCAGON) 1 MG ASDIR PRN IM Insulin Human Lispr o (HUMALOG) 0 AC HS SUBQ Potassium Chloride (KCL 10MEQ/SWFI 50ML) 50 ML Q1HR IV (DC) Potassium Chloride (POTASSIUM CHLORIDE 20MEQ TAB.ER) 40 ME Q Q2H PO (DC) Ceftriaxone Sodium (ROCEPHIN 1000MG VIAL) 1,000 MG X1ED STA IV (DC) Sodium Chloride (SODIUM CHLORIDE) 10 ML Physical ExamGeneral appearance: alert, awake, oriented, no acute distressHead/eyes: atraumatic, clear cornea, normal conjunctiva/sclera, normocephalicENT: normal noseNeck: supple/no meningismusCardiovascular: normal heart soundsRespiratory: wheezes, aerating well, no distressAbdomen: distendedGenitourinary: urinary catheter, urineExtremities: no edema ResultsFindings/Data:Laboratory Tests 10/16 10/05 2 10/16 10/16 10/16 1715 1322 1322 1322 1243 Chemistry Sodium (134 - 147 mEq/L) 138 Potassium (3.4 - 5.0 mEq/L) 4.0 Chloride (100 - 108 mEq/L) 106 Carbon Dioxide (21 - 33 mEq/l) 24 Anion Gap (0 - 20) 12 BUN (7 - 18 mg/dL) 33 H Creatinine (0.6 - 1.3 mg/dL) 1.4 H Glomerular Filtr Rate (8 0 - 90) 56.5 L Glucose (70 - 110 mg/dL) 107 POC Glucose (70 - 110 MG/DL) 113 H 102 Hemoglobin A1 c (4.8 - 6.0 %A1C) 5.5 Calcium (8.0 [...] 114 H Carbon Dioxide (21 - 33 mEq/l ) 18 L Anion Gap (0 - 20) 11 BUN (7 - 18 mg/dL) 4 1 H Creatinine (0.6 - 1.3 mg/dL) 2.1 H Glomerular Filtr Rate (80 - 90) 34.7 L Glucose (70 - 110 mg/dL) 643 *H POC Glucose (70 - 110 MG/DL) 110 Calcium (8.0 - 10.5 mg/dL) 4.9 *L Laboratory Tests 10/16 1454 Coagulation INR (0.8 - 1.2) 1. 3 H PT Patient/Control Mix (9.3 - 12.9 SECONDS) 14.3 H Laboratory Tests 10/16 0443 Hematology WBC [...] (Auto) (14.0 - 32.0 %) 3.8 L [place] % (Auto) (4.8 - 9.0 %) 13.6 H Eos % (Auto) (0.3 - 3.7 %) 0.4 Baso % (Auto) (0.0 - 2.0 %) 0.2 Neut # (Auto) (2.0 - 7.6 x10 3/uL) 8.96 H Lymph # (Auto) (1.0 - 3.8 x10 3/uL) 0.42 L [place] # (Auto) (0.1 - 0.8 x10 3/uL) 1.49 H Eos # (Auto) (0.0 - 0.2 x10 3/uL) 0.04 Baso # (Auto) (0.0 - 0.2 x10 3/uL) 0.02 Abs Immat Gran (auto) (0.00 - 0.03 x10 3/uL) 0.05 H Add Manual Diff NO Immature Gran % (0.0 - 2.0 %) 0.5 Nucleated RBC % (0 - 0 %) 0.0 Nucleated RBCs # (Man) (0.0 - 0.1 x10 3/uL) 0.00 Diagnosis, Assessment Plan Free Text DxA P NotesFree text DxA P notes:Assessment and Plan: CHANDRA-2/2 post-obstrucitve uropathy, black to gravity, monitor for post-obstructive diuresis. -Repeat labs, renal function improving, on IVF w / bicarb per primary team-UA, urine lytes requested-Per Urology note: Reportedly the patient had 3L of urine in his bladder. CT abdomen from [place] showed that the patien t has a very large distended bladder with hydroureteronephrosis and there does appear to b e maybe a fornicealrupture or some back pressure into the kidneys causing some inflammation and possibly a small amount of urine to come out through the forniceal areas that I do not see an actual ruptured ureter. The patient's creatinine has improved. His symptoms have totally resolved with catheter placement. This can be managedconservatively. The patient will follow u p as an outpatient.-Avoid nephrotoxicity monitor renal function and UOP Hypokalemia/Hypocalcemia-Lab error? repeat labs improved, K+ and Ca replaced. -Monitor for post-obstructive diuresis and electrolyte imbalance Urinary Retention/BPH-Black to gravity , Urology following, on Tamsulosin-Per Urology note: Reportedly the patient had 3L of urine in his bladder. CT abdomen from [place] showed that the patient has a very large distended bladder with hydroureteronephrosis and there panda s appear to be maybe a fornicealrupture or some back pressure into the kidneys causing some inflammation and possibly a small amount of urin e to come out through the forniceal areas that I d o not see an actual ruptured ureter. The patient's creatinine has improved. His symptoms have totally resolved with catheter placement. This can be managedconservatively. The patient will follow up as an outpatient. HTN-BP acceptable, monitor, on PRN IV hydralazine Schizophrenia-Seymour e medications resumed Further recommendations base d on the clinical course of the patient. I would like to thank and Sofia for the consult and involving us in the care of this patient. Discussed the plan with the patient, patient's nurse, and . Toby Koehler 10/16/22 2830:Attestations Physician AttestationReviewed findings plan:Patient examined 62 years old male with PMH significant for schizophrenia, HTN, BPH, current everyday smoker. The patient states that on Friday last week, he noted abdominal distention, associated w/ pain and was unable to urinate. He wasseen by his daughter Friday who took him to ER in [place]. He had CT abdomen which revealed b/l hydronephrosis and concern for possible ureteral rupture. He was transferred to [facility] r Urology evaluation. Initial VSat the ER showed a temperature of 37.1c, pulse 92/min, respration 18/min, BP 146/78 mm Hg and SpO2 96%. Laboratory data showed normal WBC, hypokalemia w/ K+ 2.8, CO2 18, azotemia w/ BUN 41, Cr 2.1, elevated blood sugar of 643, hypocalcemia w/ Ca 4.9. Foleys to gravity, replace K aggressively monito r electrolytes closely includingmagnesium, urology evaluation noted, Agree with above A/P at 6236 at 9267 RPT #:[id number] OF [id number]:39:00G.PDOC 2 [id number] for patient [id number]:02:18 2022-10-16 11:15:00 [id number]:15:00 [facility] ([facility])History Physical - AdultREPORT#:[id number] REPORT STATUS: SignedDATE:10/16/22 TIME: 1115 PATIENT: MATHEW CASTILLO UNIT #: [id number]# : [id number] [address] [birth year] AGE : 62 SEX: M ATTEND: Salinas Alba I [facility] AUTHOR: Sofia Cheng GAME ENGINEER * ALL edits or amendments must be made on the electronic/computer document * History of Presen t Illness HPIChief complaint:Abdominal distention, hydronephrosisHPI:62-year-old male with last medical history of, BPH, transferred from [place] for urology evaluation and treatment secondary to possible ruptured ureter. As per patient his abdomen was distended for at least for 2 days and hewas having difficulty urinating . Patient presented to outside facilityImaging revealed severe bilateral hydronephrosis with evidence of active urine extravasation and large amount of urine in the bladder pushing all the way up tothe abdomen. As per patient's daughter about 3 L of fluid was removed within 10minutes of Black insertion. Patient reports he has been experiencing urinary hesitancy for the past 2 to 3 years. Denies seeing a urologist. Patient deniesfever, chills, dysuria, hematuria, or othe r associated symptoms. Patient deniesshortness of breath, chest pain, nausea, vomiting, diarrhea, constipation.Admission vital signs blood pressur e 146/78, pulse 92, respiration 18, temperature 37.1, O2 sat 96% on room air. Abnormal labs:Hemoglobin 10.9, hematocrit 31.7, potassium 2.8, chloride 114, CO2 18, BUN 41, creatinine 2.1, glucose 643Calcium 4.9. HistorySmoking status for patients 13 years old or older: Current some day smokerDate last smoked: 3 Medication/Allergy-Vaccine HxAllergies:Coded Allergies:No Known Allergies (10/16/22) Review o f SystemsConstitutional:Denies: chills, fever. ENT:Denies: earache, nasal congestion, sore throat. Respiratory:Denies: hemoptysis, parox nocturnal dyspnea, pleurisy, pleuritic pain, pneumonia, SOB, wheezing. Cardiovascular:Denies: chest pain, palpitations. GI:Reports: abdominal pain. Denies: nausea, vomiting. :Reports: flan k pain, urinary retention. Denies: frequency, hematuria. Musculoskeletal: Arthritis: Denies: left upper, left lower, right upper, right lower . Neuro:Denies: change in LOC, confusion, dizziness, focal weakness, gait problem, headache, lightheaded, numbness, seizure, slurre d speech, spinning sensation, syncope, unable to speak, vision change. Psych:Reports: anxiety. Denies: agitation, change in mental status, confusion, depression, homicidal ideation, hostile, insomnia, stress, suicidal ideation. Physical ExamVS/I OVital Signs: Date Time Temp Pulse Resp B/P B/P Pulse O2 O2 Flow FiO2 Mean Ox Delivery Rate 10/16 0905 37.1 94 18 134/86 102 9 3 Room air 10/16 0330 90 146/80 107 96 10/16 0315 97 146/78 105 95 10/16 0308 37.1 92 18 146/78 10 0 96 Room air 24 hour I O ending at 0700: 10/16 0700 10/15 1900 Intake Total Output Total Balance Patient 68 kg Weight Weight Bed scale Measurement Method PATIENT WEIGHT: Weight (lb): Weight (oz): Weight (kg): 68.000 General appearance: alert, awakeHead/Eyes: atraumatic, clear cornea, EOMI, normocephalic, normal conjunctiva/sclera, normal eyelids/periorb, PERRLAENT: normal dentition, normal ear left, normal ear right, normal nose, normal pharynx, normal sinusCardiovascular: regular rate rhythmRespiratory: decreased breath sounds, cielo r to auscultation, no distress, no tendernessAbdomen/GI: active bowel sounds, soft Abdomen quadrants:LLQ normal bowel sounds, LLQ tenderness, LUQ normal bowel sounds, RLQ normal bowel sounds, RLQ tenderness, RUQ normal bowel soundsGenitourinary: foleyExtremities: moves all , no edema-all extremities, normal capillary refill, normal range of motion, normal sensory, normal motor functionNeuro/SKILLS TRAINER: alert, oriented X 3Skin: dry, intact, no gross abnormalitiesPsychiatry: no hallucinations, normal mood ResultsFindings/Data:Laboratory Tests: 10/16 10/16 1002 0443 Chemistry Sodium [...] (4.00 - 5.60 x10 6/uL) 3.74 L Hg b (12.5 - 16.9 g/dL) 10.9 L Hct (37.5 - 50.7 %) 31.7 L MCV (81.0 - 99.0 fL) 84.8 MCH (27.0 - 33. 0 pg) 29.1 MCHC (33.0 - 37.0 g/dL) 34.4 RDW (11.5 - 14.5 %) 14.1 Plt Count (150 - 400 x10 3/uL) 207 MPV (7.0 - 9.0 fL) 9.8 H Neut % (Auto) (56.0 - 77.0 %) 81.5 H Lymph % (Auto) (14.0 - 32.0 %) 3.8 L [place] % (Auto) (4.8 - 9.0 %) 13.6 H Eos % (Auto) (0.3 - 3.7 %) 0.4 Baso % (Auto) (0.0 - 2. 0 %) 0.2 Neut # (Auto) (2.0 - 7.6 x10 3/uL) 8.96 H Lymph # (Auto) (1.0 - 3.8 x10 3/uL) 0.42 L [place] # (Auto) (0.1 - 0.8 x10 3/uL) 1.49 H Eos # (Auto) (0.0 - 0.2 x10 3/uL) 0.04 Baso # (Auto) (0.0 - 0.2 x10 3/uL) 0.02 Abs Immat Gran (auto) (0.00 - 0.03 x10 3/uL) 0.05 H Add Manual Diff NO Immatur e Gran % (0.0 - 2.0 %) 0.5 Nucleated RBC % (0 - 0 %) 0.0 Nucleated RBCs # (Man) (0.0 - 0.1 x10 3/uL) 0.00 Diagnosis, Assessment PlanProblem List/A P: 1. Rupture of ureter Free Text DxA P NotesFree Text DxA P Notes:Assessment:62-year-ol d male with last medical history of, BPH, transferred from [place] for urology evaluation and treatment secondary to possible ruptured ureter. As per patient his abdomen was distended for at least for 2 days and hewas having difficulty urinating. Patient presented t o outside facilityImaging revealed severe bilatera l hydronephrosis with evidence of active urine extravasation and large amount of urine in the bladder pushing all the way up tothe abdomen. As per patient's daughter about 3 L of fluid was removed within 10minutes of Black insertion. Patient reports he has been experiencing urinary hesitancy for the past 2 to 3 years.1. Abdominal distention, severe bilateral hydronephrosis, large amount of urinary retention -Status post Black insertion large amount of urine was obtained2. Acute kidney injury3. Hypokalemia/hypocalcemia, hyperchloremia4. Metabolic acidosis5. Possible BPH6. Severe bilateral hydronephrosis7. Hypertension8. Schizophrenia Plan of care:Admit patient for further evaluation and treatmentUrology consultation in placeKeep Black to bedside drainageI's and O'sMonitor renal functionNephrology consultationReplace electrolytesStart tamsulosinBicarb drip startedRepeat CT of the abdomen and pelvis if neededRepeat labsFurther recommendation based on patient's clinical course at 0232 at 1204 [facility] #:[id number] OF REPORTHPHistory and physical [id number]:15:00G.[id number] AVAvailable for patient [id number]:32:18 2022-10-16 03:54:00 [id number]:54:00 [facility] PROVID[facility] REPORTREPORT#:[id number] REPORT STATUS: SignedDATE:10/16/22 TIME: 0354 PATIENT: MATHEW CASTILLO UNIT #: [id number]# : [id number] [address] 62 SEX: M PCP PHYS: No Primary or Family PhysicianSERVIC E AUTHOR: Alecia Iverson MD * ALL edits or amendments must be made on the electronic/computer document * HPI-General Illness GeneralInitial Greet Date/Time 10/16/22 0307 PresentationChief Complaint __ (ruptured ureter) Free Text HPI NotesFree Text HPI NotesThis is a 62-year-old male, past medical history of schizophrenia, who presents to the emergency department with a ruptured ureter. He was transferred from outside facility for urolog y consult. His daughter is with him who provides most of the history, states that for the past 2 days he has been having increasing abdominal distention, went to outside hospital was found t o have severe bilateral hydronephrosis with evidence of active urine extravasation likely from the ureter. And here for further evaluation . Patient denies any pain Review of Systems ROS StatementsAll systems rev neg except as marked. Free Text ROS NotesFree Text ROS Notesabdominal distension Past Medical History - AdultStated Complaint ACUTE RENAL FAILURE, RUPTURED LEFT URETERAllergiesCoded Allergies:No Known Allergie s (10/16/22) Home MedicationsReported MedicationsBENZTROPINE 1 MG PO DAILY HALOPERIDOL (HALDOL) 10 MG PO BID Calculated Suicide Risk (nurs) No riskSmoking status for patients 13 years old or older: Current some day smoker Physical Exam Vital SignsVital SignsFirst Documented: Result Date Time Pulse Ox 96 10/16 0308 B/P 146/78 10/16 0308 B/P Mean 100 10/16 0308 O2 Delivery Room air 10/16 0308 Temp 37.1 10/16 0308 Pulse 92 10/16 0308 Resp 18 10/16 030 8 Last Documented: Result Date Time Pulse Ox 96 10/16 0330 B/P 146/80 10/16 0330 B/P Mean 107 10/16 0330 Pulse 90 / 0330 O2 Delivery Room air 10/16 0308 Temp 37.1 10/16 0308 Resp 18 10/05 2 0308 Review of Vital Signs Reviewed Free Text PE NotesFree Text PE NotesGen.: Awake and conversing. NADHEENT: NCAT. MM moist Eyes: PERRL . EOMI. Conjunctiva normal.Neck: Supple. Trachea i s midline.Heart: RRR. No murmurChest: CTA bilat. N o accessory muscle usage.Abdomen: Abdominal distention, nontender to palpation. No guarding or reboundExtremities: No deformities. No joint warmth or erythema.Neuro: AAO. CNII-XII grossly intactPsych: Normal mood and affect.Skin: No lacertions. No abscess. Interpretation Diagnostics Lab Results InterpretationResultsLaboratory Tests 10/16/22 044:[Embedded Image Not Available]Laboratory Tests: 10/16 442 Chemistry Sodium (134 - 147 mEq/L) 140 Potassium (3.4 - 5.0 mEq/L) 2.8 *L Chloride (100 - 108 mEq/L) 114 H Carbon Dioxide (21 - 33 mEq/l) 18 L Anion Gap (0 - 20) 11 BUN ( 7 - 18 mg/dL) 41 H Creatinine (0.6 - 1.3 mg/dL) 2.1 H Glomerular Filtr Rate (80 - 90) 34.7 L Glucose (70 - 110 mg/dL) 643 *H Calcium (8.0 - 10.5 mg/dL) 4.9 *L Hematology WBC (4.5 - 11.0 x1 0 3/uL) 11.0 RBC (4.00 - 5.60 x10 6/uL) 3.74 L Hg b (12.5 - 16.9 g/dL) 10.9 L Hct (37.5 - 50.7 %) 31.7 L MCV (81.0 - 99.0 fL) 84.8 MCH (27.0 - 33. 0 pg) 29.1 MCHC (33.0 - 37.0 g/dL) 34.4 RDW (11.5 - 14.5 %) 14.1 Plt Count (150 - 400 x10 3/uL) 207 MPV (7.0 - 9.0 fL) 9.8 H Neut % (Auto) (56.0 - 77.0 %) 81.5 H Lymph % (Auto) (14.0 - 32.0 %) 3. 8 L [place] % (Auto) (4.8 - 9.0 %) 13.6 H Eos % (Auto) (0.3 - 3.7 %) 0.4 Baso % (Auto) (0.0 - 2. 0 %) 0.2 Neut # (Auto) (2.0 - 7.6 x10 3/uL) 8.96 H Lymph # (Auto) (1.0 - 3.8 x10 3/uL) 0.42 L [place] # (Auto) (0.1 - 0.8 x10 3/uL) 1.49 H Eos # (Auto) (0.0 - 0.2 x10 3/uL) 0.04 Baso # (Auto) (0.0 - 0.2 x10 3/uL) 0.02 Abs Immat Gran (auto) (0.00 - 0.03 x10 3/uL) 0.05 H Add Manual Diff NO Immature Gran % (0.0 - 2.0 %) 0.5 Nucleated RBC % (0 - 0 %) 0.0 Nucleated RBCs # (Man) (0.0 - 0.1 x10 3/uL) 0.00 Re-Evaluation MDM Free Text MDM NotesAdditional TextThis is a 62-year-old male who is transferred here for urology consult afte r found to have a likely left-sided ureteral rupture. Vital signs are stable with normal limits, no concern for sepsis. Abdomen is benign . Laboratory studies reveal ARF, likely postobstructive due to prostate hypertrophy with severe 100 versus Urology consulted, recommends placing n.p.o. and will evaluate in the morning. 1 g of Rocephin IV given. We will continue to monitor and admit to medicine service with urology consult. ED CourseMedication(s) OrderedMedication(s) Ordered:Anti-Infective Agents Sig/Mark Start time Last Medication Dose Route Stop Time Status Admin Ceftriaxone Sodium 1,000 MG X1ED STA 10/16 0416 DC 10/16 Sodium Chloride 10 ML IV 10/16 0418 0503 ConsultationConsultation Referral/Consult Name Dave Jones MD Clinical Trials Specialist Called Urology Clinical Trials Specialist Discussed with sales consultant insurance Requested Call Time 034 Requested Call Date 10/16/22 Call Returned Call returned Call Returned Time 035 Call Returned Date 10/16/22 Free Text Consult NotesRecommends abx, requesting NPO status admit to medicine. Patient Discharge Departure Vital Signs/ConditionVital SignsFirst Documented: Result Date Time Pulse Ox 96 10/16 0308 B/P 146/78 / 0308 B/P Mean 100 / 0308 O2 Delivery Room air 10/16 0308 Temp 37.1 10/16 030 8 Pulse 92 / 0308 Resp 18 / 0308 Last Documented: Result Date Time Pulse Ox 96 10/16 0330 B/P 146/80 / 0330 B/P Mean 107 / 0330 Pulse 90 / 0330 O2 Delivery Room air 10/16 0308 Temp 37.1 / 0308 Resp 18 10/16 0308 All vital signs available at the time of this entry have been reviewed. Clinical ImpressionClinical ImpressionPrimary Impression: Rupture of ureter Disposition DecisionHospitaliz e Hosp Physician Name Salinas Alba MD Hosp Physician Hospitalist Request Time 0508 Request Date 10/16/22 )( Accepts Hospitalization Yes )( Reason for Hospitalizationconcern for rupture ureter )( Accepted Time 0508 )( Accepted Date 10/16/22 Call Information will see patient Supervising Physician Note MidLv Saw Pt AloneI was available in the emergency department for questions or consultation, I didnot personally see this patient. I was not involved in the care of this patient and am signing this chart for administrative purposes only. at 1907RPT #:[id number] [facility] [id number] carrol constantino for patient [id number]
--- NOTE | 2023-03-03 12:57 | ER ---
Nurse's Notes [facility] Name: Mathew Porter Age: 62 yrs Sex: Male : 1960 Arrival Date: 03/03/2023 Time: 12:36 Bed 9 Private MD: Diagnosis: Mechanical complication of urinary (indwelling) catheter Presentation: 03/03 12:41 Chief complaint: Patient states: "The end of my catheter is leaking and I need my Johns mb9 sticker replaced as well". Coronavirus screen: At this time, the client does not indicate any symptoms associated with coronavirus-19. Ebola Screen: No symptoms or risks identified at this time. Initial Sepsis Screen: Does the patient meet any 2 criteria? No. Patient's initial sepsis screen is negative. Does the patient have a suspected source of infection? No. Patient's initial sepsis screen is negative. Risk Assessment: Do you want to hurt yourself or someone else? Patient reports no desire to harm self or others. Onset of symptoms was March 03, 2023. 12:41 Method Of Arrival: Ambulatory 9 12:41 Acuity: JAMILA 4 mb9 Triage Assessment: 12:43 General: Appears in no apparent distress. Behavior is calm, cooperative. Pain: Denies mb9 pain. EENT: No signs and/or symptoms were reported regarding the EENT system. Neuro: Devine Agitation-Sedation Scale (RASS): 0 - Alert and Calm Level of Consciousness is awake, alert, obeys commands, Oriented to person, place, time, situation, Appropriate for age. Cardiovascular: Patient's skin is warm and dry. Respiratory: Airway is patent Respiratory effort is even, unlabored, Respiratory pattern is regular, symmetrical. GI: No signs and/or symptoms were reported involving the gastrointestinal system. : Johns in place. Derm: Skin is pink, warm \\T\\ dry. Historical: - Allergies: 12:43 NKA; mb9 - PMHx: 12:43 Schizophrenia; mb9 - PSHx: 12:43 Urolift (December); mb9 - Immunization history:: Adult Immunizations up to date. - Social history:: Smoking status: Patient denies any tobacco usage or history of. - Family history:: not pertinent. Screenin:50 [facility] ED Fall Risk Assessment (Adult) History of falling in the last 3 months, me1 including since admission No falls in past 3 months (0 pts) Confusion or Disorientation No (0 pts) Intoxicated or Sedated No (0 pts) Impaired Gait No (0 pts) Mobility Assist Device Used No (0 pt) Altered Elimination No (0 pt) Score/Fall Risk Level 0 - 2 = Low Risk. Abuse screen: Denies threats or abuse. Nutritional screening: No deficits noted. Tuberculosis screening: No symptoms or risk factors identified. Assessment: 12:50 General: Appears comfortable, well groomed, well developed, well nourished, Behavior is me1 calm, cooperative, appropriate for age, johns drainage bag is leaking and statlock is coming off.. Pain: Denies pain. Neuro: Level of Consciousness is awake, alert, obeys commands, Oriented to person, place, time, situation, Appropriate for age. Cardiovascular: Capillary refill < 3 seconds Patient's skin is warm and dry. Respiratory: Airway is patent Respiratory effort is even, unlabored, Respiratory pattern is regular, symmetrical. : Johns in place to gravity drainage drainage bag is leaking and stat lock is coming off. Vital Signs: 12:41 BP 132 / 86; Pulse 88; Resp 18; Temp 98; Pulse Ox 100% on R/A; Weight 83.91 kg; Height mb9 5 ft. 6 in. ; Pain 0/10; 12:41 Body Mass Index 29.86 (83.91 kg, 167.64 cm) mb9 12:41 Pain Scale: Adult mb9 ED Course: 12:38 Patient arrived in ED. rg4 12:39 Silvestre Sheppard MD is Attending Physician. rt 12:43 Triage completed. mb9 12:43 Arm band placed on. mb9 12:45 Radha Langley, DEENA is Primary Nurse. me1 12:50 No provider procedures requiring assistance completed. Patient did not have IV access me1 during this emergency room visit. 12:53 Patient has correct armband on for positive identification. Bed in low position. Call me1 light in reach. Side rails up X 1. Provided Education on: POC. Verbalized understanding. . Administered Medications: No medications were administered Medication: 12:50 VIS not applicable for this client. me1 Outcome: 12:56 Discharge ordered by . rt 13:03 Discharged to home ambulatory, me1 13:03 Condition: stable 13:03 Discharge instructions given to patient, Instructed on discharge instructions, follow up and referral plans. Demonstrated understanding of instructions, follow-up care, 13:03 Patient left the ED. me1 Signatures: Whit Cuadra rg4 Rylee Franco, RN RN mb9 Silvestre Sheppard MD MD rt Radha Langley RN RN me1
--- NOTE | 2023-03-03 12:57 | EDPHYS ---
Physician Documentation [facility] Name: Mathew Porter Age: 62 yrs Sex: Male : 1960 Arrival Date: 03/03/2023 Time: 12:36 Bed 9 Private MD: ED Physician Silvestre Sheppard HPI: 03/03 12:57 This 62 yrs old Male presents to ER via Ambulatory with complaints of Problem With rt Urinary Catheter. 12:57 Patient presents to the ED with issues with his urinary catheter. He states that the rt area where the connection tubing hooks into the bag has some leakage he also states that the tape has fallen off of his leg causing some pulling at his penis. Denies any pain, dysuria, fever, chills. Denies other acute complaints, symptoms are mild in severity, no other aggravating elevating factors.. Historical: - Allergies: 12:43 NKA; mb9 - PMHx: 12:43 Schizophrenia; mb9 - PSHx: 12:43 Urolift (December); mb9 - Immunization history:: Adult Immunizations up to date. - Social history:: Smoking status: Patient denies any tobacco usage or history of. - Family history:: not pertinent. ROS: 12:57 Constitutional: Negative for fever, chills, and weight loss, Cardiovascular: Negative rt for chest pain, palpitations, and edema, Respiratory: Negative for shortness of breath, cough, wheezing, and pleuritic chest pain, Abdomen/GI: Negative for abdominal pain, nausea, vomiting, diarrhea, and constipation, Skin: Negative for injury, rash, and discoloration, Neuro: Negative for headache, weakness, numbness, tingling, and seizure, Psych: Negative for depression, anxiety, suicide ideation, homicidal ideation, and hallucinations, Exam: 12:57 Constitutional: This is a well developed, well nourished patient who is awake, alert, rt and in no acute distress. Head/Face: Normocephalic, atraumatic. Chest/axilla: Normal chest wall appearance and motion. Nontender with no deformity. No lesions are appreciated. Cardiovascular: Regular rate and rhythm with a normal S1 and S2. No gallops, murmurs, or rubs. Normal PMI, no JVD. No pulse deficits. Respiratory: Lungs have equal breath sounds bilaterally, clear to auscultation and percussion. No rales, rhonchi or wheezes noted. No increased work of breathing, no retractions or nasal flaring. Abdomen/GI: Soft, non-tender, with normal bowel sounds. No distension or tympany. No guarding or rebound. No evidence of tenderness throughout. Skin: Warm, dry with normal turgor. Normal color with no rashes, no lesions, and no evidence of cellulitis. MS/ Extremity: Pulses equal, no cyanosis. Neurovascular intact. Full, normal range of motion. Neuro: Awake and alert, GCS 15, oriented to person, place, time, and situation. Cranial nerves II-XII grossly intact. Motor strength 5/5 in all extremities. Sensory grossly intact. Cerebellar exam normal. Normal gait. Psych: Awake, alert, with orientation to person, place and time. Behavior, mood, and affect are within normal limits. Vital Signs: 12:41 BP 132 / 86; Pulse 88; Resp 18; Temp 98; Pulse Ox 100% on R/A; Weight 83.91 kg; Height mb9 5 ft. 6 in. ; Pain 0/10; 12:41 Body Mass Index 29.86 (83.91 kg, 167.64 cm) mb9 12:41 Pain Scale: Adult mb9 MDM: 12:39 Patient medically screened. rt 12:57 Differential Diagnosis Johns catheter care, UTI. Data reviewed: vital signs, nurses rt notes. Test considered but Not performed: Labs: Patient with chronic indwelling Johns catheter, has no symptoms attributable to UTI at this time, any positive urinalysis likely to be contaminant, colonization and not represent true pathogen, urinalysis is not indicated. Care significantly affected by the following chronic conditions: BPH. Counseling: I had a detailed discussion with the patient and/or guardian regarding the historical points, exam findings, and any diagnostic results supporting the discharge/admit diagnosis, the need for outpatient follow up. 03/03 12:44 Order name: [facility] [place] Order: Replace catheter bag and johns leg tape; Complete Time: 12:50 rt Administered Medications: No medications were administered Disposition Summary: 03/03/23 12:56 Discharge Ordered Notes: Location: Home rt Problem: new rt Symptoms: have improved rt Condition: Stable rt Diagnosis - Mechanical complication of urinary (indwelling) catheter rt Followup: rt - With: Private Physician - When: 5 - 6 days - Reason: Discharge Instructions: - Discharge Summary Sheet rt - Indwelling Urinary Catheter Care, Adult rt Forms: - Medication Reconciliation Form rt - Thank You Letter rt - Antibiotic Education rt - Prescription Opioid Use rt - Patient Portal Instructions rt - Leadership Thank You Letter rt Signatures: Rylee Franco RN RN mb9 Silvestre Sheppard MD MD rt
[2023-03-03 14:07] VITALS: BP 132/86; TEMP 98; O2SAT 100
== END 2023-03-03 13:03 | disposition home or self-care (01) ==
LOC: ER 12:36
DX: T83.091A Other mechanical complication of indwelling urethral catheter, initial encounter (principal); F20.9 Schizophrenia, unspecified
CPT/HCPCS: 99282

== ENCOUNTER 2023-03-17 11:19 | Emergency (ER) | payer OTHER ==
--- NOTE | 2023-03-17 11:32 | EDPHYS ---
Physician Documentation [facility] Name: Mathew Porter Age: 62 yrs Sex: Male : 1960 Arrival Date: 03/17/2023 Time: 11:19 Bed 11 Private MD: Lakhwinder Guillermo ED Physician Octavio Perez HPI: 03/17 11:29 This 62 yrs old Male presents to ER via Ambulatory with complaints of Problem With rn Urinary Catheter. 11:29 The patient presents with a Mercer catheter problem, Needs bag and tubing replaced. rn Onset: The symptoms/episode began/occurred at an unknown time. Modifying factors: The symptoms are alleviated by nothing, the symptoms are aggravated by nothing. Severity of symptoms: At their worst the symptoms were very mild, in the emergency department the symptoms are unchanged. The patient has experienced similar episodes in the past. Patient reports needs replacement of Mercer catheter drainage tubing and bag. Patient states catheter is draining and working appropriately but the police liaison his inner leg is shifting a lot and becoming hard to keep still. Patient also points to back and shows some small holes in the back of the bag and concern for possible leak from the bag itself. No fever. No infectious symptoms. No abdominal pain or swelling.. Historical: - Allergies: 11: NKA; cm10 - PMHx: 11: Schizophrenia; cm10 - PSHx: 11:28 Urolift (December); cm10 - Immunization history:: Adult Immunizations unknown. - Social history:: Smoking status: Patient denies any tobacco usage or history of. - Family history:: not pertinent. - Hospitalizations: : No recent hospitalization is reported. ROS: 11:29 Constitutional: Negative for fever, chills, and weight loss, Cardiovascular: Negative rn for chest pain, palpitations, and edema, Respiratory: Negative for shortness of breath, cough, wheezing, and pleuritic chest pain, Abdomen/GI: Negative for abdominal pain, nausea, vomiting, diarrhea, and constipation, : Negative for injury, bleeding, discharge, and swelling, MS/Extremity: Negative for injury and deformity, Exam: 11:29 Constitutional: This is a well developed, well nourished patient who is awake, alert, rn and in no acute distress. Male : Mercer catheter in place, adhesive right inner thigh coming undone, Mercer catheter bag with small pinpoint holes on the back of it. No leakage noted. Vital Signs: 11:25 BP 135 / 93; Pulse 87; Resp 16; Temp 97.1; Pulse Ox 100% on R/A; Weight 69.85 kg; cm10 Height 5 ft. 10 in. ; Pain 0/10; 11:25 Body Mass Index 22.10 (69.85 kg, 177.8 cm) cm10 11:25 Pain Scale: Adult cm10 MDM: 11:23 Patient medically screened. rn 11:29 Differential diagnosis: Mercer catheter problem. Data reviewed: vital signs, nurses rn notes, and as a result, I will discharge patient. Counseling: I had a detailed discussion with the patient and/or guardian regarding the historical points, exam findings, and any diagnostic results supporting the discharge/admit diagnosis, the need for outpatient follow up, to return to the emergency department if symptoms worsen or persist or if there are any questions or concerns that arise at home. Special discussion: I discussed with the patient/guardian in detail that at this point there is no indication for admission to the hospital. It is understood, however, that if the symptoms persist or worsen the patient needs to return immediately for re-evaluation. 11:29 ED course: Drainage tubing, bag and adhesive police liaison thigh all replaced by nurse. rn Patient thankful and happy.. 03/17 11:28 Order name: Mercer Leg Bag; Complete Time: 12:03 rn Administered Medications: No medications were administered Disposition Summary: 03/17/23 11:31 Discharge Ordered Notes: Location: Home rn Problem: new rn Symptoms: have improved rn Condition: Stable rn Diagnosis - Mechanical complication of urinary (indwelling) catheter rn Followup: rn - With: Private Physician - When: As needed - Reason: Recheck today's complaints, Re-evaluation by your physician Discharge Instructions: - Discharge Summary Sheet rn - Indwelling Urinary Catheter Care, Adult rn Forms: - Medication Reconciliation Form rn - Thank You Letter rn - Antibiotic nutrition internship - Prescription Opioid Use rn - Patient Portal Instructions rn - Leadership Thank You Letter rn Signatures: Octavio Perez MD MD rn Martinez, Clarissa, RN RN [facility]
--- NOTE | 2023-03-17 11:32 | ER ---
Nurse's Notes [facility] Name: Mathew Porter Age: 62 yrs Sex: Male : 1960 Arrival Date: 03/17/2023 Time: 11:19 Bed 11 Private MD: Lakhwinder Guillermo Diagnosis: Mechanical complication of urinary (indwelling) catheter Presentation: 03/17 11:25 Chief complaint: Patient states: He is here because he needs a new leg sticker for his cm10 johns bag. Coronavirus screen: Vaccine status: Patient reports being unvaccinated. Client denies travel out of the [place] in the last 14 days. Ebola Screen: Patient denies travel to an Ebola-affected area in the 21 days before illness onset. No symptoms or risks identified at this time. Initial Sepsis Screen: Does the patient meet any 2 criteria? No. Patient's initial sepsis screen is negative. Does the patient have a suspected source of infection? No. Patient's initial sepsis screen is negative. Risk Assessment: Do you want to hurt yourself or someone else? Patient reports no desire to harm self or others. Onset of symptoms was March 17, 2023. 11:25 Method Of Arrival: Ambulatory 10 11:25 Acuity: JAMILA 4 cm10 Historical: - Allergies: 11:28 NKA; cm10 - PMHx: 11:28 Schizophrenia; cm10 - PSHx: 11:28 Urolift (December); cm10 - Immunization history:: Adult Immunizations unknown. - Social history:: Smoking status: Patient denies any tobacco usage or history of. - Family history:: not pertinent. - Hospitalizations: : No recent hospitalization is reported. Screenin:56 [facility] ED Fall Risk Assessment (Adult) Score/Fall Risk Level 0 - 2 = Low Risk hb Oriented to surroundings, Maintained a safe environment, Educated pt \T\ family on fall prevention, incl call for assistance when getting out of bed. Abuse screen: Denies threats or abuse. Denies injuries from another. Nutritional screening: No deficits noted. Tuberculosis screening: No symptoms or risk factors identified. Assessment: 12:03 Reassessment: Replaced johns collection bag with regular bag instead of leg bag per pt hb request. Vital Signs: 11:25 BP 135 / 93; Pulse 87; Resp 16; Temp 97.1; Pulse Ox 100% on R/A; Weight 69.85 kg; cm10 Height 5 ft. 10 in. ; Pain 0/10; 11:25 Body Mass Index 22.10 (69.85 kg, 177.8 cm) cm10 11:25 Pain Scale: Adult cm10 ED Course: 11:21 Patient arrived in ED. rg4 11:21 Lakhwinder Guillermo MD is Private Physician. rg4 11:23 Octavio Perez MD is Attending Physician. rn 11:28 Triage completed. cm10 11:29 Arm band placed on Patient placed in an exam room, on a stretcher. cm10 11:56 Patient has correct armband on for positive identification. Provided Education on: hb johns care. 11:56 No provider procedures requiring assistance completed. Patient did not have IV access hb during this emergency room visit. Administered Medications: No medications were administered Medication: 12:03 VIS not applicable for this client. hb Outcome: 11:31 Discharge ordered by MD. rn 12:05 Discharged to home ambulatory, hb 12:05 Condition: stable 12:05 Discharge instructions given to patient, Instructed on discharge instructions, follow hb up and referral plans. Demonstrated understanding of instructions, follow-up care, 12:05 Patient left the ED. hb Signatures: Octavio Perez MD MD rn Baxter, Heather, RN RN hb Garcia, Rubi rg4 Apryl Salazar RN RN cm10
[2023-03-17 12:10] VITALS: BP 135/93; TEMP 97.1; O2SAT 100
== END 2023-03-17 12:05 | disposition home or self-care (01) ==
LOC: ER 11:19
PROC: 0T2BX0Z Change Drainage Device in Bladder, External Approach (ICD-10-PCS; principal; 2023-03-17)
DX: T83.098A Other mechanical complication of other urinary catheter, initial encounter (principal)
CPT/HCPCS: 99282

== ENCOUNTER → 2023-04-01 | Emergency (ER) | payer OTHER ==
--- OUTSIDE RECORDS SUMMARY | 2023-04-01 10:46 | XMS REPORT | Continuity of Care Document ---
Author Name Unknown Address [address] [place] [place] [id number] [facility] thconnect Address [address] [place] [address] Care Team Providers Care Spray Painter Helper Name Role Phone Salinas Alba I Attending Clinician Unavaila ble Physician, No Primary or Family Admitting [facility] Unavailable Payers Payer Name Policy Type Policy Number Effective Date Expirati on Date Source Allergies, Adverse Reactions, Alerts Allergy Name Allergy Type Status Severity Reaction(s) Onset Date Inactive Date Treating Clinician Comments Source No Known Allergie s DA Active U 10-16 00:00: 00 [facility] Results Test Description Test Time Test Comments Results Result Co mments Source
--- NOTE | 2023-04-01 11:11 | EDPHYS ---
Physician Documentation [facility] Name: Mathew Porter Age: 62 yrs Sex: Male : 1960 Arrival Date: 04/01/2023 Time: 10:43 Bed 11 Private MD: Lakhwinder Guillermo ED Physician Octavio Perez HPI: 04/01 11:03 This 62 yrs old Male presents to ER via Ambulatory with complaints of Problem With rn Urinary Catheter. 11:03 The patient presents with a Johns catheter problem, Malpositioned. Onset: The rn symptoms/episode began/occurred today. Modifying factors: The symptoms are alleviated by nothing, the symptoms are aggravated by nothing. Severity of symptoms: At their worst the symptoms were very mild, in the emergency department the symptoms are unchanged. The patient has experienced similar episodes in the past. Patient reports accidentally snagged catheter with his foot, disconnected the tubing accidentally, is having trouble reconnecting. Johns catheter is draining and no other complaints. No fever. No abdominal pain. Johns catheter did not get pulled out from the penis, states is the tape and tubing on his right thigh.. Historical: - Allergies: 10:50 NKA; ll1 - PMHx: 10:50 Schizophrenia; ll1 - PSHx: 10:50 Urolift (December); ll1 - Immunization history:: Adult Immunizations up to date. - Social history:: Smoking status: Patient denies any tobacco usage or history of. - Family history:: not pertinent. - Hospitalizations: : No recent hospitalization is reported. ROS: 11:03 Constitutional: Negative for fever, chills, and weight loss, Abdomen/GI: Negative for rn abdominal pain, nausea, vomiting, diarrhea, and constipation, : Positive for malpositioning to urinary catheter, external tubing Exam: 11:03 Constitutional: This is a well developed, well nourished patient who is awake, alert, rn and in no acute distress. Male : Johns catheter draining appropriately, no leakage, no blood. Vital Signs: 10:59 BP 135 / 88; Pulse 89; Resp 18; Temp 97.7; Pulse Ox 96% ; Weight 70.31 kg; Height 5 ft. ll1 10 in. ; Pain 0/10; 10:59 Body Mass Index 22.24 (70.31 kg, 177.8 cm) ll1 10:59 Pain Scale: Adult ll1 MDM: 10:52 Patient medically screened. rn 11:09 Differential diagnosis: Johns catheter problem. Data reviewed: vital signs, nurses rn notes, and as a result, I will discharge patient. Counseling: I had a detailed discussion with the patient and/or guardian regarding the historical points, exam findings, and any diagnostic results supporting the discharge/admit diagnosis, the need for outpatient follow up, to return to the emergency department if symptoms worsen or persist or if there are any questions or concerns that arise at home. Special discussion: I discussed with the patient/guardian in detail that at this point there is no indication for admission to the hospital. It is understood, however, that if the symptoms persist or worsen the patient needs to return immediately for re-evaluation. 04/01 11:05 [place]: [facility] [place] Order: redress johns attachment to thigh, recheck all components.; rn Complete Time: 11:14 Administered Medications: No medications were administered Disposition Summary: 04/01/23 11:10 Discharge Ordered Notes: Location: Home rn Problem: new rn Symptoms: have improved rn Condition: Stable rn Diagnosis - Mechanical complication of urinary (indwelling) catheter rn Followup: rn - With: Private Physician - When: As needed - Reason: Recheck today's complaints, Re-evaluation by your physician Discharge Instructions: - Discharge Summary Sheet rn - Indwelling Urinary Catheter Care, Adult rn Forms: - Medication Reconciliation Form rn - Thank You Letter rn - Antibiotic bakery pastry internship - Prescription Opioid Use rn - Patient Portal Instructions rn - Leadership Thank You Letter rn Signatures: Octavio Perez MD MD rn Lewis, Lynsay, RN RN [facility]
--- NOTE | 2023-04-01 11:11 | ER ---
Nurse's Notes [facility] Name: Mathew Porter Age: 62 yrs Sex: Male : 1960 Arrival Date: 04/01/2023 Time: 10:43 Bed 11 Private MD: Lakhwinder Guillermo Diagnosis: Mechanical complication of urinary (indwelling) catheter Presentation: 04/01 10:51 Ebola Screen: Patient denies travel to an Ebola-affected area in the 21 days before 1 illness onset. Initial Sepsis Screen: Does the patient meet any 2 criteria? No. Patient's initial sepsis screen is negative. Does the patient have a suspected source of infection? Yes: Dysuria/Frequency/Urgency/UTI. Risk Assessment: Do you want to hurt yourself or someone else? Patient reports no desire to harm self or others. 10:51 Method Of Arrival: Ambulatory 1 10:51 Acuity: JAMILA 3 ll1 10:59 Chief complaint: Patient states: Catheter came loose and unconnected Friday. 1 Coronavirus screen: Client denies travel out of the [place] in the last 14 days. At this time, the client does not indicate any symptoms associated with coronavirus-19. Onset of symptoms was March 30, 2023. Triage Assessment: 11:00 General: Appears in no apparent distress. Behavior is calm, cooperative, appropriate ll1 for age. Pain: Denies pain. : Reports johns came loose from hub on Friday. Historical: - Allergies: 10:50 NKA; ll1 - PMHx: 10:50 Schizophrenia; ll1 - PSHx: 10:50 Urolift (December); ll1 - Immunization history:: Adult Immunizations up to date. - Social history:: Smoking status: Patient denies any tobacco usage or history of. - Family history:: not pertinent. - Hospitalizations: : No recent hospitalization is reported. Vital Signs: 10:59 BP 135 / 88; Pulse 89; Resp 18; Temp 97.7; Pulse Ox 96% ; Weight 70.31 kg; Height 5 ft. ll1 10 in. ; Pain 0/10; 10:59 Body Mass Index 22.24 (70.31 kg, 177.8 cm) 1 10:59 Pain Scale: Adult ll1 ED Course: 10:45 Patient arrived in ED. rg4 10:45 Lakhwinder Guillermo MD is Private Physician. rg4 10:50 Arm band placed on. ll1 10:51 Triage completed. ll1 10:52 Octavio Perez MD is Attending Physician. rn 11:10 Lakhwinder Guillermo MD is Referral Physician. rn 11:19 Lolis Davis RN is Primary Nurse. iw Administered Medications: No medications were administered Outcome: 11:10 Discharge ordered by . rn 11:19 Patient left the ED. iw Signatures: Lolis Davis RN RN iw Octavio Perez MD MD rn Garcia, Rubi rg4 Brandt Stout RN RN ll1
[2023-04-01 11:35] VITALS: BP 135/88; TEMP 97.7; O2SAT 96
== END ==
LOC: ER 10:43
DX: T83.028A Displacement of other urinary catheter, initial encounter (principal)
CPT/HCPCS: 99281

== ENCOUNTER → 2023-04-27 | Emergency (ER) | payer OTHER ==
--- OUTSIDE RECORDS SUMMARY | 2023-04-27 12:49 | XMS REPORT | Continuity of Care Document ---
Author Name Unknown Address [address] [facility] [place] [id number] [facility] thconnect Address [address] [facility] [place] [place] [address] Care Team Providers Care Integrated Pest Management Technician Name Role Phone Salinas Alba I Attending Clinician Salinas Kelley I Admitting Clinician Cristi torres Physician, No Primary or Family Ad[facility] Unavailable Payers Payer Name Policy Type Policy Number Effective Date Expirati on Date Source Allergies, Adverse Reactions, Alerts Allergy Name Allergy Type Status Severity Reaction(s) Onset Date Inactive Date Treating Clinician Comments Source No Known Allergie s DA Active U 10-16 00:00: 00 [facility] Encounters Start Date/Time End Date/Time Encounter Type Admission Type Attending Clinicians Care Facility Care Department Encounter ID Source 2023-01-21 06:38:00 2023-01-22 20:00:00 Inpatient EM Salinas Alba [facility] [id number] [facility] 2023-01-06 15:12:00 2023-01-11 21:08:00 Inpatient EM Salinas Alba [facility] [id number] [facility] 2022-10-16 05:03:00 2022-10-26 19:41:00 Inpatient EM Salinas Alba [facility] [id number] [facility] Results Test Description Test Time Test Comments Results Resul t Comments Source - CT ABD PELVIS W/CONT 2023-01-05 8 13:[facility] 1960 Sex: M Name: MATHEW CASTILLO [facility] : 1960 Age/S: 62 / M [address] [place] [address] Blvd Unit #: [id number] Loc: [place] [address] Phys: Sofia Cheng PLASTIC DIE MAKER APPRENTICE Acct: [id number] Dis Date: Status: ADM IN PHONE #: [phone] Exam Date: 01/22/2023 1231 FAX #: [phone] Reason: ABD PAIN EXAMS: CPT CODE: [id number] CT ABD PELVIS W/CONT 06673 EXAM: CT abdomen and pelvis with contrast [...] 1 Signed Report (CONTINUED) Name: MATHEW CASTILLO [facility] : 1960 Age/S: 62 / M [address] [place] [address] Blvd Unit #: [id number] Loc: [place] [address] Phys: Sofia Cheng PLASTIC DIE MAKER APPRENTICE Acct: [id number] Dis Date: Status: ADM IN PHONE #: [phone] Exam Date: 01/22/2023 1231 FAX #: [phone] Reason: ABD PAIN EXAMS: CPT CODE: [id number] CT ABD PELVIS W/CONT 75220 (Continued) abdominal aortic aneurysm. Pelvic organs/bladder: Moderate [...] M.D. CC: Lakhwinder Guillermo MD; Sofia Cheng PLASTIC DIE MAKER APPRENTICE; Salinas Dukes MD Technologist:Rick Moran Jr, RT(R)(CT) CTDI: DLP: Trnscb Date/Time: 01/22/2023 (1300) [email or web address] Orig Print D/T: S: 01/22/2023 (2306) PAGE 2 Signed Report [id number] 07:46:00* Test Item Value Reference Range Interpretation Comme nts PHOSPHOROUS (test code = PHOS) 2.4 MG/DL 2.5-4.9 L [id number] 07:46:00* Test Item Value Reference Range Interpretation Comme nts MAGNESIUM (test code = MAG) 1.69 mg/dL 1.6-2.6 N NOTE: NEW NORMAL RANGE CBC W/AUTO [id number] 07:05:00* Test Item Value Reference Range Interpretation Comme nts WHITE BLOOD CELL (test code = WBC) 9.9 x10 3/uL 4.5-11.0 N RED BLOOD CELL (test code = RBC) 3.36 x10 6/uL 4.00-5.60 L HEMOGLOBIN (test code = HGB) 9.6 g/dL 12.5-16.9 L HEMATOCRIT (test code = HCT) 29.1 % 37.5-50.7 L MEAN CELL VOLUME (test code = MCV) 86.6 fL 81.0-99.0 N MEAN CELL HGB (test code = MCH) 28.6 pg 27.0-33.0 N MEAN CELL HGB CONCETRATION (test code = MCHC) 33.0 g/dL 33.0-37.0 N RED CELL DISTRIBUTION WIDTH CV (test code = RDW) 13.9 % 11.5-14.5 N RED CELL DISTRIBUTION WIDTH SD (test code = RDW-SD) 43.3 fL 37.0-54.0 N PLATELET COUNT (test code = PLT) 403 x10 3/uL 150-400 H MEAN PLATELET VOLUME (test c ode = MPV) 9.3 fL 7.0-9.0 H NEUTROPHIL % (test code = NT%) 74.6 % 56.0-77.0 N IMMATURE GRANULOCYTE % (test code = IG%) 0.5 % 0.0-2.0 N LYMPHOCYTE % (test code = LY%) 9.8 % 14.0-32.0 L MONOCYTE % (test code = MO%) 9.0 % 4.8-9.0 N EOSINOPHIL % (test code = EO%) 5.7 % 0.3-3.7 H BASOPHIL % (test code = BA%) 0.4 % 0.0-2.0 N NUCLEATED RBC % (test code = NRBC%) 0.0 % 0-0 N NEUTROPHIL # (test code = NT#) 7.35 x10 3/uL 2.0-7.6 N IMMATURE GRANULOCYTE # (test code = IG#) 0.05 x10 3/uL 0.00-0.03 H LYMPHOCYTE # (test code = LY#) 0.97 x10 3/uL 1.0-3.8 L MONOCYTE # (test code = MO#) 0.89 x10 3/uL 0.1-0.8 H EOSINOPHIL # (test code = EO#) 0.56 x10 3/uL 0.0-0.2 H BASOPHIL # (test code = BA#) 0.04 x10 3/uL 0.0-0.2 N NUCLEATED RBC # (test code = NRBC#) 0.00 x10 3/uL 0.0-0.1 N BASIC METABOLIC [id number] 06:08:00* Test Item Value Reference Range Interpretation Comme nts SODIUM (test code = NA) 134 mEq/L 134-147 N POTASSIUM (test code = K) 4.4 mEq/L 3.4-5.0 N CHLORIDE (test code = CL) 102 mEq/L 100-108 N CARBON DIOXIDE (test code = CO2) 22 mEq/l 21-33 N ANION GAP (test code = GAP) 14 0-20 N GLUCOSE (test code = GLU) 111 mg/dL 77-141 N NOTE: NEW NORMAL RANGE BLOOD UREA NITROGEN (test code = BUN) 54 mg/dL 7-25 H NOTE: NEW NORM AL RANGE GLOMERULAR FILTRATION RATE (test code = GFR) 26.9 80-90 L The Glomerular Filtration Rate is a calculated parameterbased on serum Creatinine, patient age and sex. GFR valuesless than 60 mL/min/1.73 square meters are indicative ofChronic Kidney Disease. Values less than 15 mL/min/1.73square meters indicate Kidney failure. The calculation forGFR is based on the CKD-EPI (202) calculation. This formulais race indifferent and is the recommended formula for GFRby the National Kidney Foundation for Adults.The GFR will not calculate if the sex is unknown or if thepatient's age is <18 years. CREATININE (test code = CREAT) 2.6 mg/dL 0.6-1.3 H CALCIUM (test code = CA) 8.2 mg/dL 8.0-10.5 N CBC W/AUTO [id number] 05:57:00* Test Item Value Reference Range Interpretation Comme nts WHITE BLOOD CELL (test code = WBC) 11.2 x10 3/uL 4.5-11.0 H RED BLOOD CELL (test code = RBC) 3.66 x10 6/uL 4.00-5.60 L HEMOGLOBIN (test code = HGB) 10.3 g/dL 12.5-16.9 L HEMATOCRIT (test code = HCT) 31.6 % 37.5-50.7 L MEAN CELL VOLUME (test code = MCV) 86.3 fL 81.0-99.0 N MEAN CELL HGB (test code = MCH) 28.1 pg 27.0-33.0 N MEAN CELL HGB CONCETRATION (test code = MCHC) 32.6 g/dL 33.0-37.0 L RED CELL DISTRIBUTION WIDTH CV (test code = RDW) 13.9 % 11.5-14.5 N RED CELL DISTRIBUTION WIDTH SD (test code = RDW-SD) 44.3 fL 37.0-54.0 N PLATELET COUNT (test code = PLT) 451 x10 3/uL 150-400 H MEAN PLATELET VOLUME (test c ode = MPV) 9.5 fL 7.0-9.0 H NEUTROPHIL % (test code = NT%) 83.9 % 56.0-77.0 H IMMATURE GRANULOCYTE % (test code = IG%) 0.4 % 0.0-2.0 N LYMPHOCYTE % (test code = LY%) 7.1 % 14.0-32.0 L MONOCYTE % (test code = MO%) 8.1 % 4.8-9.0 N EOSINOPHIL % (test code = EO%) 0.4 % 0.3-3.7 N BASOPHIL % (test code = BA%) 0.1 % 0.0-2.0 N NUCLEATED RBC % (test code = NRBC%) 0.0 % 0-0 N NEUTROPHIL # (test code = NT#) 9.37 x10 3/uL 2.0-7.6 H IMMATURE GRANULOCYTE # (test code = IG#) 0.05 x10 3/uL 0.00-0.03 H LYMPHOCYTE # (test code = LY#) 0.79 x10 3/uL 1.0-3.8 L MONOCYTE # (test code = MO#) 0.90 x10 3/uL 0.1-0.8 H EOSINOPHIL # (test code = EO#) 0.05 x10 3/uL 0.0-0.2 N BASOPHIL # (test code = BA#) 0.01 x10 3/uL 0.0-0.2 N NUCLEATED RBC # (test code = NRBC#) 0.00 x10 3/uL 0.0-0.1 N MANUAL DIFF REQUIRED (test c ode = MDIFF) NO CBC W/AUTO [id number] 08:15:00* Test Item Value Reference Range Interpretation Comme [...] CONCETRATION (test code = MCHC) 31.7 g/dL 33.0-37.0 L RED CELL DISTRIBUTION WIDTH CV (test code = RDW) 13.7 % 11.5-14.5 N RED CELL DISTRIBUTION WIDTH SD (test code = RDW-SD) 44.6 fL 37.0-54.0 N PLATELET COUNT (test code = PLT) 283 x10 3/uL 150-400 N MEAN PLATELET VOLUME (test c ode = MPV) 9.9 fL 7.0-9.0 H NEUTROPHIL [...] 0.00 x10 3/uL 0.0-0.1 N BASIC METABOLIC [id number] 07:28:00* Test Item Value Reference Range Interpretation Comme nts SODIUM (test code = NA) 139 mEq/L 134-147 N POTASSIUM (test code = K) 4.2 mEq/L 3.4-5.0 N CHLORIDE (test code = CL) 105 mEq/L 100-108 N CARBON DIOXIDE (test code = CO2) 27 mEq/l 21-33 N ANION GAP (test code = GAP) 11 0-20 N GLUCOSE (test code = GLU) 106 mg/dL 77-141 N NOTE: NEW NORMAL RANGE BLOOD UREA NITROGEN (test code = BUN) 12 mg/dL 7-25 N NOTE: NEW NORM AL RANGE GLOMERULAR FILTRATION RATE (test code = GFR) 84.6 80-90 N The Glomerular Filtration Rate is a calculated parameterbased on serum Creatinine, patient age and sex. GFR valuesless than 60 mL/min/1.73 square meters are indicative ofChronic Kidney Disease. Values less than 15 mL/min/1.73square meters indicate Kidney failure. The calculation forGFR is based on the CKD-EPI (2021) calculation. This formulais race indifferent and is the recommended formula for GFRby the National Kidney Foundation for Adults.The GFR will not calculate if the sex is unknown or if thepatient's age is <18 years. CREATININE (test code = CREAT) 1.0 mg/dL 0.6-1.3 N CALCIUM (test code = CA) 8.6 mg/dL 8.0-10.5 N BASIC METABOLIC [id number] 07:46:00* Test Item Value Reference Range Interpretation Comme nts SODIUM (test code = NA) 139 mEq/L 134-147 N POTASSIUM (test code = K) 4.4 mEq/L 3.4-5.0 N CHLORIDE (test code = CL) 105 mEq/L 100-108 N CARBON DIOXIDE (test code = CO2) 28 mEq/l 21-33 N ANION GAP (test code = GAP) 11 0-20 N GLUCOSE (test code = GLU) 91 mg/dL 77-141 N NOTE: NEW NORMAL RANGE BLOOD UREA NITROGEN (test code = BUN) 9 mg/dL 7-25 N NOTE: NEW NORM AL RANGE GLOMERULAR FILTRATION RATE (test code = GFR) 99.4 80-90 H The Glomerular Filtration Rate is a calculated parameterbased on serum Creatinine, patient age and sex. GFR valuesless than 60 mL/min/1.73 square meters are indicative ofChronic Kidney Disease. Values less than 15 mL/min/1.73square meters indicate Kidney failure. The calculation forGFR is based on the CKD-EPI (2021) calculation. This formulais race indifferent and is the recommended formula for GFRby the National Kidney Foundation for Adults.The GFR will not calculate if the sex is unknown or if thepatient's age is <18 years. CREATININE (test code = CREAT) 0.8 mg/dL 0.6-1.3 N CALCIUM (test code = CA) 8.7 mg/dL 8.0-10.5 N CBC W/AUTO [id number] 07:34:00* Test Item Value Reference Range Interpretation Comme nts WHITE BLOOD CELL (test code = WBC) 6.5 x10 3/uL 4.5-11.0 N RED BLOOD CELL (test code = RBC) 3.55 x10 6/uL 4.00-5.60 L HEMOGLOBIN (test code = HGB) 10.1 g/dL 12.5-16.9 L HEMATOCRIT (test code = HCT) 31.7 % 37.5-50.7 L MEAN CELL VOLUME (test code = MCV) 89.3 fL 81.0-99.0 N MEAN CELL HGB (test code = MCH) 28.5 pg 27.0-33.0 N MEAN CELL HGB CONCETRATION (test code = MCHC) 31.9 g/dL 33.0-37.0 L RED CELL DISTRIBUTION WIDTH CV (test code = RDW) 13.6 % 11.5-14.5 N RED CELL DISTRIBUTION WIDTH SD (test code = RDW-SD) 45.1 fL 37.0-54.0 N PLATELET COUNT (test code = PLT) 257 x10 3/uL 150-400 N MEAN PLATELET VOLUME (test c ode = MPV) 10.2 fL 7.0-9.0 H NEUTROPHIL % (test code = NT%) 59.5 % 56.0-77.0 N IMMATURE GRANULOCYTE % (test code = IG%) 0.5 % 0.0-2.0 N LYMPHOCYTE % (test code = LY%) 22.3 % 14.0-32.0 N MONOCYTE % (test code = MO%) 6.9 % 4.8-9.0 N EOSINOPHIL % (test code = EO%) 9.9 % 0.3-3.7 H BASOPHIL % (test code = BA%) 0.9 % 0.0-2.0 N NUCLEATED RBC % (test code = NRBC%) 0.0 % 0-0 N NEUTROPHIL # (test code = NT#) 3.89 x10 3/uL 2.0-7.6 N IMMATURE GRANULOCYTE # (test code = IG#) 0.03 x10 3/uL 0.00-0.03 N LYMPHOCYTE # (test code = LY#) 1.46 x10 3/uL 1.0-3.8 N MONOCYTE # (test code = MO#) 0.45 x10 3/uL 0.1-0.8 N EOSINOPHIL # (test code = EO#) 0.65 x10 3/uL 0.0-0.2 H BASOPHIL # (test code = BA#) 0.06 x10 3/uL 0.0-0.2 N NUCLEATED RBC # (test code = NRBC#) 0.00 x10 3/uL 0.0-0.1 N CBC W/AUTO [id number] 08:43:00* Test Item Value Reference Range Interpretation Comme nts WHITE BLOOD CELL (test code = WBC) 5.9 x10 3/uL 4.5-11.0 N RED BLOOD CELL (test code = RBC) 3.23 x10 6/uL 4.00-5.60 L HEMOGLOBIN (test code = HGB) 9.2 g/dL 12.5-16.9 L HEMATOCRIT (test code = HCT) 29.2 % 37.5-50.7 L MEAN CELL VOLUME (test code = MCV) 90.4 fL 81.0-99.0 N MEAN CELL HGB (test code = MCH) 28.5 pg 27.0-33.0 N MEAN CELL HGB CONCETRATION (test code = MCHC) 31.5 g/dL 33.0-37.0 L RED CELL DISTRIBUTION WIDTH CV (test code = RDW) 13.8 % 11.5-14.5 N RED CELL DISTRIBUTION WIDTH SD (test code = RDW-SD) 45.8 fL 37.0-54.0 N PLATELET COUNT (test code = PLT) 205 x10 3/uL 150-400 N MEAN PLATELET VOLUME (test c ode = MPV) 10.8 fL 7.0-9.0 H NEUTROPHIL % (test code = NT%) 60.1 % 56.0-77.0 N IMMATURE GRANULOCYTE % (test code = IG%) 0.3 % 0.0-2.0 N LYMPHOCYTE % (test code = LY%) 21.2 % 14.0-32.0 N MONOCYTE % (test code = MO%) 7.2 % 4.8-9.0 N EOSINOPHIL % (test code = EO%) 10.4 % 0.3-3.7 H BASOPHIL % (test code = BA%) 0.8 % 0.0-2.0 N NUCLEATED RBC % (test code = NRBC%) 0.0 % 0-0 N NEUTROPHIL # (test code = NT#) 3.56 x10 3/uL 2.0-7.6 N IMMATURE GRANULOCYTE # (test code = IG#) 0.02 x10 3/uL 0.00-0.03 N LYMPHOCYTE # (test code = LY#) 1.26 x10 3/uL 1.0-3.8 N MONOCYTE # (test code = MO#) 0.43 x10 3/uL 0.1-0.8 N EOSINOPHIL # (test code = EO#) 0.62 x10 3/uL 0.0-0.2 H BASOPHIL # (test code = BA#) 0.05 x10 3/uL 0.0-0.2 N NUCLEATED RBC # (test code = NRBC#) 0.00 x10 3/uL 0.0-0.1 N MANUAL DIFF REQUIRED (test c ode = MDIFF) NO BASIC METABOLIC [id number] 07:14:00* Test Item Value Reference Range Interpretation Comme nts SODIUM (test code = NA) 138 mEq/L 134-147 N POTASSIUM (test code = K) 4.0 mEq/L 3.4-5.0 N CHLORIDE (test code = CL) 104 mEq/L 100-108 N CARBON DIOXIDE (test code = CO2) 26 mEq/l 21-33 N ANION GAP (test code = GAP) 12 0-20 N GLUCOSE (test code = GLU) 91 mg/dL 77-141 N NOTE: NEW NORMAL RANGE BLOOD UREA NITROGEN (test code = BUN) 14 mg/dL 7-25 N NOTE: NEW NORM AL RANGE GLOMERULAR FILTRATION RATE (test code = GFR) 99.4 80-90 H The Glomerular Filtration Rate is a calculated parameterbased on serum Creatinine, patient age and sex. GFR valuesless than 60 mL/min/1.73 square meters are indicative ofChronic Kidney Disease. Values less than 15 mL/min/1.73square meters indicate Kidney failure. The calculation forGFR is based on the CKD-EPI (2020) calculation. This formulais race indifferent and is the recommended formula for GFRby the National Kidney Foundation for Adults.The GFR will not calculate if the sex is unknown or if thepatient's age is <18 years. CREATININE (test code = CREAT) 0.8 mg/dL 0.6-1.3 N CALCIUM (test code = CA) 7.8 mg/dL 8.0-10.5 L CBC W/AUTO [id number] 08:58:00* Test Item Value Reference Range Interpretation Comme nts WHITE BLOOD CELL (test code = WBC) 9.7 x10 3/uL 4.5-11.0 RED BLOOD CELL (test code = RBC) 3.36 x10 6/uL 4.00-5.60 L HEMOGLOBIN (test code = HGB) 9.7 g/dL 12.5-16.9 L HEMATOCRIT (test code = HCT) 30.1 % 37.5-50.7 L MEAN CELL VOLUME (test code = MCV) 89.6 fL 81.0-99.0 N MEAN CELL HGB (test code = MCH) 28.9 pg 27.0-33.0 N MEAN CELL HGB CONCETRATION (test code = MCHC) 32.2 g/dL 33.0-37.0 L RED CELL DISTRIBUTION WIDTH CV (test code = RDW) 14.2 % 11.5-14.5 N RED CELL DISTRIBUTION WIDTH SD (test code = RDW-SD) 46.5 fL 37.0-54.0 N PLATELET COUNT (test code = PLT) 187 x10 3/uL 150-400 N MEAN PLATELET VOLUME (test c ode = MPV) 10.9 fL 7.0-9.0 H NEUTROPHIL % (test code = NT%) 76.7 % 56.0-77.0 N IMMATURE GRANULOCYTE % (test code = IG%) 0.4 % 0.0-2.0 N LYMPHOCYTE % (test code = LY%) 11.8 % 14.0-32.0 L MONOCYTE % (test code = MO%) 7.5 % 4.8-9.0 N EOSINOPHIL % (test code = EO%) 3.2 % 0.3-3.7 N BASOPHIL % (test code = BA%) 0.4 % 0.0-2.0 N NUCLEATED RBC % (test code = NRBC%) 0.0 % 0-0 N NEUTROPHIL # (test code = NT#) 7.43 x10 3/uL 2.0-7.6 N IMMATURE GRANULOCYTE # (test code = IG#) 0.04 x10 3/uL 0.00-0.03 H LYMPHOCYTE # (test code = LY#) 1.14 x10 3/uL 1.0-3.8 N MONOCYTE # (test code = MO#) 0.73 x10 3/uL 0.1-0.8 N EOSINOPHIL # (test code = EO#) 0.31 x10 3/uL 0.0-0.2 H BASOPHIL # (test code = BA#) 0.04 x10 3/uL 0.0-0.2 N NUCLEATED RBC # (test code = NRBC#) 0.00 x10 3/uL 0.0-0.1 N MANUAL DIFF REQUIRED (test c ode = MDIFF) NO BASIC METABOLIC [id number] 08:27:00* Test Item Value Reference Range Interpretation Comme nts SODIUM (test code = NA) 139 mEq/L 134-147 N POTASSIUM (test code = K) 4.0 mEq/L 3.4-5.0 N CHLORIDE (test code = CL) 103 mEq/L 100-108 N CARBON DIOXIDE (test code = CO2) 29 mEq/l 21-33 N ANION GAP (test code = GAP) 11 0-20 N GLUCOSE (test code = GLU) 106 mg/dL 77-141 N NOTE: NEW NORMAL RANGE BLOOD UREA NITROGEN (test code = BUN) 17 mg/dL 7-25 N NOTE: NEW NORM AL RANGE GLOMERULAR FILTRATION RATE (test code = GFR) 96.0 80-90 H The Glomerular Filtration Rate is a calculated parameterbased on serum Creatinine, patient age and sex. GFR valuesless than 60 mL/min/1.73 square meters are indicative ofChronic Kidney Disease. Values less than 15 mL/min/1.73square meters indicate Kidney failure. The calculation forGFR is based on the CKD-EPI (2020) calculation. This formulais race indifferent and is the recommended formula for GFRby the National Kidney Foundation for Adults.The GFR will not calculate if the sex is unknown or if thepatient's age is <18 years. CREATININE (test code = CREAT) 0.9 mg/dL 0.6-1.3 N CALCIUM (test code = CA) 8.2 mg/dL 8.0-10.5 N [id number] 08:34:00* Test Item Value Reference Range Interpretation Comme nts HGBA1C% (test code = HGBA1C%) 5.1 %A1C 4.8-6.0 N CBC W/AUTO [id number] 08:05:00* Test Item Value Reference Range Interpretation Comme nts WHITE BLOOD CELL (test code = WBC) 18.1 x10 3/uL 4.5-11.0 H RED BLOOD CELL (test code = RBC) 3.93 x10 6/uL 4.00-5.60 L HEMOGLOBIN (test code = HGB) 11.4 g/dL 12.5-16.9 L HEMATOCRIT (test code = HCT) 34.2 % 37.5-50.7 L MEAN CELL VOLUME (test code = MCV) 87.0 fL 81.0-99.0 N MEAN CELL HGB (test code = MCH) 29.0 pg 27.0-33.0 N MEAN CELL HGB CONCETRATION (test code = MCHC) 33.3 g/dL 33.0-37.0 N RED CELL DISTRIBUTION WIDTH CV (test code = RDW) 14.0 % 11.5-14.5 N RED CELL DISTRIBUTION WIDTH SD (test code = RDW-SD) 45.0 fL 37.0-54.0 N PLATELET COUNT (test code = PLT) 224 x10 3/uL 150-400 N MEAN PLATELET VOLUME (test code = MPV) 10.7 fL 7.0-9.0 H NEUTROPHIL % (test code = NT%) 88.4 % 56.0-77.0 H IMMATURE GRANULOCYTE % (test code = IG%) 0.5 % 0.0-2.0 N LYMPHOCYTE % (test code = LY%) 4.5 % 14.0-32.0 L MONOCYTE % (test code = MO%) 6.1 % 4.8-9.0 N EOSINOPHIL % (test code = EO%) 0.3 % 0.3-3.7 N BASOPHIL % (test code = BA%) 0.2 % 0.0-2.0 N NUCLEATED RBC % (test code = NRBC%) 0.0 % 0-0 N NEUTROPHIL # (test code = NT#) 15.99 x10 3/uL 2.0-7.6 H IMMATURE GRANULOCYTE # (test code = IG#) 0.09 x10 3/uL 0.00-0.03 H LYMPHOCYTE # (test code = LY#) 0.82 x10 3/uL 1.0-3.8 L MONOCYTE # (test code = MO#) 1.10 x10 3/uL 0.1-0.8 H EOSINOPHIL # (test code = EO#) 0.05 x10 3/uL 0.0-0.2 N BASOPHIL # (test code = BA#) 0.03 x10 3/uL 0.0-0.2 N NUCLEATED RBC # (test code = NRBC#) 0.00 x10 3/uL 0.0-0.1 N MANUAL DIFF REQUIRED (test code = MDIFF) NO BASIC METABOLIC [id number] 07:46:00* Test Item Value Reference Range Interpretation Comme nts SODIUM (test code = NA) 132 mEq/L 134-147 L POTASSIUM (test code = K) 4.2 mEq/L 3.4-5.0 N CHLORIDE (test code = CL) 99 mEq/L 100-108 L CARBON DIOXIDE (test code = CO2) 24 mEq/l 21-33 N ANION GAP (test code = GAP) 14 0-20 N GLUCOSE (test code = GLU) 120 mg/dL 77-141 N NOTE: NEW NORMAL RANGE BLOOD UREA NITROGEN (test code = BUN) 15 mg/dL 7-25 N NOTE: NEW NORM AL RANGE GLOMERULAR FILTRATION RATE (test code = GFR) 75.4 80-90 L The Glomerular Filtration Rate is a calculated parameterbased on serum Creatinine, patient age and sex. GFR valuesless than 60 mL/min/1.73 square meters are indicative ofChronic Kidney Disease. Values less than 15 mL/min/1.73square meters indicate Kidney failure. The calculation forGFR is based on the CKD-EPI (2020) calculation. This formulais race indifferent and is the recommended formula for GFRby the National Kidney Foundation for Adults.The GFR will not calculate if the sex is unknown or if thepatient's age is <18 years. CREATININE (test code = CREAT) 1.1 mg/dL 0.6-1.3 N CALCIUM (test code = CA) 8.6 mg/dL 8.0-10.5 N LIPID PROFILE (CORONARY RISK)2023-01-05 07:46:00* Test Item Value Reference Range Interpretation Comme nts TRIGLYCERIDES (test code = TRIG) 90 mg/dL 40-150 N CHOLESTEROL (test code = CHOL) 178 mg/dL <200 CHOLESTEROL/HDL RATIO (test code = CHOLHDL) 2.79 RATIO 3.43-4.97 L RISK ASSOCIATED WITH CHOL/HDL RATIOS: RISK MALE FEMALE1/2 AVERAGE 3.43 3.27AVERAGE 4.97 4.442X AVERAGE 9.55 7.053X AVERAGE 23.39 11.04 NOTE THAT THE REFERENCE VALUE IS RELATEDTO RISK LEVELS RECOMMENDED BY THE NATL.HEART, LUNG, AND BLOOD INST. HDL CHOLESTEROL (test code = HDL) 63.8 MG/DL 40-60 H Note change in REFERENCE RANGE due to change in REAGENT.HDL Interpretation < 40.0 mg/dL Low (undesirable, high risk)> 60.0 mg/dL High (desirable, low risk) Reference interval for healthy adults was established by theNational Cholesterol Education Program (NCEP). LIPOPROTEIN LDL (test code = LDL) 104.0 mg/dL 0-100 H <100 [id number] 0-129 NEAR OPTIMAL/ABOVE [id number] HIGH>LJ=430 VERY HIGH*Guidelines provided by the National Cholesterol EducationProgram Adult Treatment Panel III [id number] 07:46:00* Test Item Value Reference Range Interpretation Comme nts PHOSPHOROUS (test code = PHOS) 3.4 MG/DL 2.5-4.9 N [id number] 07:46:00* Test Item Value Reference Range Interpretation Comme nts MAGNESIUM (test code = MAG) 1.69 mg/dL 1.6-2.6 N NOTE: NEW NORMAL RANGE TSH REFLEX TO [id number] 07:46:00* Test Item Value Reference Range Interpretation Comme nts TSH REFLEX TO FT4 (test code = TSHREFLEX) 2.37 IU/mL 0.42-5.47 N LACTIC [id number] 05:48:00* Test Item Value Reference Range Interpretation Comme nts LACTIC ACID (test code = LACT) 1.1 mmol/L 0.4-1.9 N LACTIC ACID [id number] 02:38:00* Test Item Value Reference Range Interpretation Comme nts LACTIC ACID REPEAT (test cod e = LACTR) 0.9 mmol/l 0.4-1.9 N CALLED SEVERINO @01:18 TO REMIND WE NEEDED REPEATLACTIC [id number] 22:36:00* Test Item Value Reference Range Interpretation Comme nts LACTIC ACID (test code = LACT) 2.9 mmol/L 0.4-1.9 H UA RFLX MICR CULT IF [id number] 22:35:00* Test Item Value Reference Range Interpretation Comme nts UA COLOR (test code = COLU) RED YEL/STRAW A UA APPEARANCE (test code = APPU) CLOUDY CLEAR A UA GLUCOSE DIPSTICK (test co de = DGLUU) NEGATIVE NEGATIVE UA BILIRUBIN DIPSTICK (test code = BILU) NEGATIVE NEGATIVE UA KETONE DIPSTICK (test cod e = KETU) NEGATIVE NEGATIVE UA SPECIFIC GRAVITY (test co de = SGU) 1.005 1.005-1.030 N UA BLOOD DIPSTICK (test code = ROXANA) 2+ NEGATIVE A UA PH DIPSTICK (test code = FORREST) 7.0 5.0-7.0 N UA PROTEIN DIPSTICK (test co de = PROU) 2+ NEGATIVE A UA UROBILINIOGEN DIPSTICK (test code = URO) 0.2 mg/dL 0.2-1.0 UA NITRITE DIPSTICK (test co de = CR) NEGATIVE NEGATIVE UA LEUKOCYTE ESTERASE DIPSTI CK (test code = LEUU) TRACE NEGATIVE A UA WBC (test code = WBCU) >50 WBC/HPF 0-3 A UA RBC (test code = RBCU) >50 RBC/HPF 0-3 A UA WBC NO REFLEX (test code = WBCUCL) >50 WBC/HPF 0-3 A UA BACTERIA (test code = BACU) NONE SEEN /HPF NONE SEEN UA SQUAMOUS CELLS (test code = SQU) NONE SEEN /HPF NONE SEEN UA CALCIUM OXALATE CRYSTALS (test code = CAOXU) 4+ /HPF NONE SEEN A UA YEAST (BUDDING) (test cod e = YEASTUBD) 2+ /HPF NONE A Indication for culture: Flank PainSpecimen Description: INDWELLING CATH (BLACK)Cath Status: Less than 14 days- CT ABD PELVIS [id number] 22:24:00 [facility] HUANGName: MATHEW CASTILLO : 1960 Sex: M Name: MATHEW CASTILLO [facility] [place] [facility] : 1960 Age/S: 62 / M [address] Unit #: [id number] Loc: [place] [address] Phys: Vee Horton Acct: [id number] Dis Date: Status: [facility] ER PHONE #: [phone] Exam Date: 01/04/2023 0940 FAX #: [phone] Reason: GROSS HEMATURIA EXAMS: CPT CODE: [id number] CT ABD PELVIS W/CONT 60799 H 20 TIME OF STUDY: 01/04/2023 7:55 PM REASON FOR EXAM: GROSS HEMATURIA COMPARISON: None. TECHNIQUE: Helical post contrast enhanced images were obtained through the abdomen and pelvis. Sagittal and coronal reformats were obtained and reviewed. One or more of the following radiation dose reduction techniques was used: automatedexposure control, adjustment of mA and/or KV according [...] maximum dimension. Surgical clips are noted in theprostate. IMPRESSION: 1. Prostatomegaly. Decompressed bladder with a Black in place. 2. No hydronephrosis. No enhancing renal masses. 3. Cholelithiasis and mildly distended gallbladder. 4. Moderate hiatal hernia. PAGE 1 Signed Report (CONTINUED) Name: MATHEW CASTILLO [facility] : 1960 Age/S: 62 / M [address] [place] [address] Unit #: [id number] Loc: [place] [address] Phys: Vee Horton Acct: [id number] Dis Date: Status: REG ER PHONE #: [phone] Exam Date: 01/04/2023 09 FAX #: [phone] Reason: GROSS HEMATURIA EXAMS: CPT CODE: [id number] CT ABD PELVIS W /CONT [id number] (Continued) at 2224 Reported and signed by: Zia Magaña M.D. CC: Lakhwinder Guillermo MD; Vee Horton; Javier Carroll Technologist:Latoya Moeller, (R); Lesvia Humphries CTDI: DLP: Trnscb Date/Time: 01/04/2023 (2223) [email or web address] Orig Print D/T: S: 01/04/2023 (2226) PAGE 2 Signed ReportCOMPREHENSIVE METABOLIC [id number] 21:07:00* Test Item Value Reference Range Interpretation Comme nts SODIUM (test code = NA) 133 mEq/L 134-147 L POTASSIUM (test code = K) 4.2 mEq/L 3.4-5.0 N CHLORIDE (test code = CL) 98 mEq/L 100-108 L CARBON DIOXIDE (test code = CO2) 28 mEq/l 21-33 N ANION GAP (test code = GAP) 12 0-20 N GLUCOSE (test code = GLU) 138 mg/dL 77-141 N NOTE: NEW NORMAL RANGE BLOOD UREA NITROGEN (test code = BUN) 17 mg/dL 7-25 N NOTE: NEW NORM AL RANGE GLOMERULAR FILTRATION RATE (test code = GFR) 68.0 80-90 L The Glomerular Filtration Rate is a calculated parameterbased on serum Creatinine, patient age and sex. GFR valuesless than 60 mL/min/1.73 square meters are indicative ofChronic Kidney Disease. Values less than 15 mL/min/1.73square meters indicate Kidney failure. The calculation forGFR is based on the CKD-EPI (202) calculation. This formulais race indifferent and is the recommended formula for GFRby the National Kidney Foundation for Adults.The GFR will not calculate if the sex is unknown or if thepatient's age is <18 years. CREATININE (test code = CREAT) 1.2 mg/dL 0.6-1.3 N TOTAL PROTEIN (test code = PROT) 7.8 g/dL 6.4-8.2 N ALBUMIN (test code = ALB) 4.10 g/dL 3.4-5.0 N CALCIUM (test code = CA) 9.1 mg/dL 8.0-10.5 N BILIRUBIN TOTAL (test code = BILT) 1.00 mg/dL 0.0-1.0 N SGOT/AST (test code = AST) 19 IUnit/L 8-34 N NOTE: NEW NORMAL RANGE SGPT/ALT (test code = ALT) 11 IUnit/L 10-49 N NOTE: NEW NORMAL RANGE ALKALINE PHOSPHATASE TOTAL (test code = ALKP) 60 IUnit/L 20-125 N CBC W/AUTO [id number] 20:38:00* Test Item Value Reference Range Interpretation Comme nts WHITE BLOOD CELL (test code = WBC) 16.7 x10 3/uL 4.5-11.0 H RED BLOOD CELL (test code = RBC) 4.58 x10 6/uL 4.00-5.60 N HEMOGLOBIN (test code = HGB) 13.1 g/dL 12.5-16.9 N HEMATOCRIT (test code = HCT) 39.8 % 37.5-50.7 N MEAN CELL VOLUME (test code = MCV) 86.9 fL 81.0-99.0 N MEAN CELL HGB (test code = MCH) 28.6 pg 27.0-33.0 N MEAN CELL HGB CONCETRATION (test code = MCHC) 32.9 g/dL 33.0-37.0 L RED CELL DISTRIBUTION WIDTH CV (test code = RDW) 13.9 % 11.5-14.5 N RED CELL DISTRIBUTION WIDTH SD (test code = RDW-SD) 44.2 fL 37.0-54.0 N PLATELET COUNT (test code = PLT) 268 x10 3/uL 150-400 N MEAN PLATELET VOLUME (test code = MPV) 10.3 fL 7.0-9.0 H NEUTROPHIL % (test code = NT%) 88.4 % 56.0-77.0 H IMMATURE GRANULOCYTE % (test code = IG%) 0.7 % 0.0-2.0 N LYMPHOCYTE % (test code = LY%) 5.4 % 14.0-32.0 L MONOCYTE % (test code = MO%) 5.3 % 4.8-9.0 N EOSINOPHIL % (test code = EO%) 0.0 % 0.3-3.7 L BASOPHIL % (test code = BA%) 0.2 % 0.0-2.0 N NUCLEATED RBC % (test code = NRBC%) 0.0 % 0-0 N NEUTROPHIL # (test code = NT#) 14.77 x10 3/uL 2.0-7.6 H IMMATURE GRANULOCYTE # (test code = IG#) 0.11 x10 3/uL 0.00-0.03 H LYMPHOCYTE # (test code = LY#) 0.90 x10 3/uL 1.0-3.8 L MONOCYTE # (test code = MO#) 0.89 x10 3/uL 0.1-0.8 H EOSINOPHIL # (test code = EO#) 0.00 x10 3/uL 0.0-0.2 N BASOPHIL # (test code = BA#) 0.04 x10 3/uL 0.0-0.2 N NUCLEATED RBC # (test code = NRBC#) 0.00 x10 3/uL 0.0-0.1 N MANUAL DIFF REQUIRED (test code = MDIFF) NO BASIC METABOLIC [id number] 08:30:00* Test Item Value Reference Range Interpretation Comme nts SODIUM (test code = NA) 140 mEq/L 134-147 N POTASSIUM (test code = K) 2.8 mEq/L 3.4-5.0 LL Critical result called to ELLE SINGH RN by RyanS2Brennan at 0609 10/16/22Nurse read back resut and tech confirmed it's correct? Y CHLORIDE (test code = CL) 114 mEq/L 100-108 H CARBON DIOXIDE (test code = CO2) 18 mEq/l 21-33 L ANION GAP (test code = GAP) 11 0-20 N GLUCOSE (test code = GLU) 643 mg/dL 70-110 HH Critical [place] [address]/16/22Nurse read back resut and tech confirmed it's correct? Y BLOOD UREA NITROGEN (test code = BUN) 41 mg/dL 7-18 H GLOMERULAR FILTRATION RATE (test code = GFR) 34.7 80-90 L The Glomerular Filtration Rate is a calculated parameterbased on serum Creatinine, patient age and sex. GFR valuesless than 60 mL/min/1.73 square meters are indicative ofChronic Kidney Disease. Values less than 15 mL/min/1.73square meters indicate Kidney failure. The calculation forGFR is based on the CKD-EPI (2020) calculation. This formulais race indifferent and is the recommended formula for GFRby the National Kidney Foundation for Adults.The GFR will not calculate if the sex is unknown or if thepatient's age is <18 years. CREATININE (test code = CREAT) 2.1 mg/dL 0.6-1.3 H CALCIUM (test code = CA) 4.9 mg/dL 8.0-10.5 LL Critical result [place]FMS22 [place] [address]/16/22Nurse read back result and tech confirmed it's correct? YPreviously reported result: 4.9 mg/dLEdited by: KRISTEN on 10/31/22:316573 0829: CA previously reported as: 4.9 *L mg/dL Critical result called [place] EL[place] [address]/16/22 Nurse read back result and tech confirmed it's correct? Y GLUCOSE [id number] 17:27:00* Test Item Value Reference Range Interpretation Comme nts GLUCOSE BEDSIDE (test code = GLUBED) 109 MG/DL 70-110 N Performed by teto tse at [facility] GLUCOSE [id number] 12:34:00* Test Item Value Reference Range Interpretation Comme nts GLUCOSE BEDSIDE (test code = GLUBED) 95 MG/DL 70-110 N Performed by cer tified tugger operator at [facility] GLUCOSE [id number] 08:49:00* Test Item Value Reference Range Interpretation Comme nts GLUCOSE BEDSIDE (test code = GLUBED) 117 MG/DL 70-110 H Performed by cer tified tugger operator at [facility] BASIC METABOLIC [id number] 07:57:00* Test Item Value Reference Range Interpretation Comme nts SODIUM (test code = NA) 140 mEq/L 134-147 N POTASSIUM (test code = K) 4.5 mEq/L 3.4-5.0 N CHLORIDE (test code = CL) 107 mEq/L 100-108 N CARBON DIOXIDE (test code = CO2) 30 mEq/l 21-33 N ANION GAP (test code = GAP) 8 0-20 N GLUCOSE (test code = GLU) 91 mg/dL 70-110 N BLOOD UREA NITROGEN (test code = BUN) 18 mg/dL 7-18 N GLOMERULAR FILTRATION RATE (test code = GFR) 84.6 80-90 N The Glomerular Filtration Rate is a calculated parameterbased on serum Creatinine, patient age and sex. GFR valuesless than 60 mL/min/1.73 square meters are indicative ofChronic Kidney Disease. Values less than 15 mL/min/1.73square meters indicate Kidney failure. The calculation forGFR is based on the CKD-EPI (202) calculation. This formulais race indifferent and is the recommended formula for GFRby the National Kidney Foundation for Adults.The GFR will not calculate if the sex is unknown or if thepatient's age is <18 years. CREATININE (test code = CREAT) 1.0 mg/dL 0.6-1.3 N CALCIUM (test code = CA) 8.1 mg/dL 8.0-10.5 N GLUCOSE [id number] 17:07:00* Test Item Value Reference Range Interpretation Comme nts GLUCOSE BEDSIDE (test code = GLUBED) 127 MG/DL 70-110 H Performed by cer tified tugger operator at [facility] GLUCOSE [id number] 12:26:00* Test Item Value Reference Range Interpretation Comme nts GLUCOSE BEDSIDE (test code = GLUBED) 123 MG/DL 70-110 H Performed by cer tified tugger operator at [facility] GLUCOSE [id number] 07:59:00* Test Item Value Reference Range Interpretation Comme nts GLUCOSE BEDSIDE (test code = GLUBED) 92 MG/DL 70-110 N Performed by cer violeta tugger operator at [facility] BASIC METABOLIC [id number] 07:38:00* Test Item Value Reference Range Interpretation Comme nts SODIUM (test code = NA) 138 mEq/L 134-147 N POTASSIUM (test code = K) 4.0 mEq/L 3.4-5.0 N CHLORIDE (test code = CL) 108 mEq/L 100-108 N CARBON DIOXIDE (test code = CO2) 27 mEq/l 21-33 N ANION GAP (test code = GAP) 7 0-20 N GLUCOSE (test code = GLU) 80 mg/dL 70-110 N BLOOD UREA NITROGEN (test code = BUN) 14 mg/dL 7-18 N GLOMERULAR FILTRATION RATE (test code = GFR) 96.0 80-90 H The Glomerular Filtration Rate is a calculated parameterbased on serum Creatinine, patient age and sex. GFR valuesless than 60 mL/min/1.73 square meters are indicative ofChronic Kidney Disease. Values less than 15 mL/min/1.73square meters indicate Kidney failure. The calculation forGFR is based on the CKD-EPI (202) calculation. This formulais race indifferent and is the recommended formula for GFRby the National Kidney Foundation for Adults.The GFR will not calculate if the sex is unknown or if thepatient's age is <18 years. CREATININE (test code = CREAT) 0.9 mg/dL 0.6-1.3 N CALCIUM (test code = CA) 7.8 mg/dL 8.0-10.5 L CBC W/AUTO [id number] 07:27:00* Test Item Value Reference Range Interpretation Comme nts WHITE BLOOD CELL (test code = WBC) 15.1 x10 3/uL 4.5-11.0 H RED BLOOD CELL (test code = RBC) 4.39 x10 6/uL 4.00-5.60 N HEMOGLOBIN (test code = HGB) 12.6 g/dL 12.5-16.9 N HEMATOCRIT (test code = HCT) 39.1 % 37.5-50.7 N MEAN CELL VOLUME (test code = MCV) 89.1 fL 81.0-99.0 N MEAN CELL HGB (test code = MCH) 28.7 pg 27.0-33.0 N MEAN CELL HGB CONCETRATION (test code = MCHC) 32.2 g/dL 33.0-37.0 L RED CELL DISTRIBUTION WIDTH CV (test code = RDW) 13.8 % 11.5-14.5 N RED CELL DISTRIBUTION WIDTH SD (test code = RDW-SD) 45.3 fL 37.0-54.0 N PLATELET COUNT (test code = PLT) 421 x10 3/uL 150-400 H MEAN PLATELET VOLUME (test code = MPV) 9.3 fL 7.0-9.0 H NEUTROPHIL % (test code = NT%) 81.1 % 56.0-77.0 H IMMATURE GRANULOCYTE % (test code = IG%) 1.0 % 0.0-2.0 N LYMPHOCYTE % (test code = LY%) 10.6 % 14.0-32.0 L MONOCYTE % (test code = MO%) 4.4 % 4.8-9.0 L EOSINOPHIL % (test code = EO%) 2.4 % 0.3-3.7 N BASOPHIL % (test code = BA%) 0.5 % 0.0-2.0 N NUCLEATED RBC % (test code = NRBC%) 0.0 % 0-0 N NEUTROPHIL # (test code = NT#) 12.30 x10 3/uL 2.0-7.6 H IMMATURE GRANULOCYTE # (test code = IG#) 0.15 x10 3/uL 0.00-0.03 H LYMPHOCYTE # (test code = LY#) 1.60 x10 3/uL 1.0-3.8 N MONOCYTE # (test code = MO#) 0.66 x10 3/uL 0.1-0.8 N EOSINOPHIL # (test code = EO#) 0.36 x10 3/uL 0.0-0.2 H BASOPHIL # (test code = BA#) 0.07 x10 3/uL 0.0-0.2 N NUCLEATED RBC # (test code = NRBC#) 0.00 x10 3/uL 0.0-0.1 N MANUAL DIFF REQUIRED (test code = MDIFF) NO GLUCOSE [id number] 21:25:00* Test Item Value Reference Range Interpretation Comme nts GLUCOSE BEDSIDE (test code = GLUBED) 154 MG/DL 70-110 H Performed by cer tified tugger operator at [facility] GLUCOSE [id number] 17:43:00* Test Item Value Reference Range Interpretation Comme nts GLUCOSE BEDSIDE (test code = GLUBED) 73 MG/DL 70-110 N Performed by cer tified tugger operator at [facility] GLUCOSE [id number] 10:08:00* Test Item Value Reference Range Interpretation Comme nts GLUCOSE BEDSIDE (test code = GLUBED) 87 MG/DL 70-110 N Performed by cer tified tugger operator at [facility] GLUCOSE [id number] 20:12:00* Test Item Value Reference Range Interpretation Comme nts GLUCOSE BEDSIDE (test code = GLUBED) 139 MG/DL 70-110 H Performed by cer tified tugger operator at [facility] GLUCOSE [id number] 17:32:00* Test Item Value Reference Range Interpretation Comme nts GLUCOSE BEDSIDE (test code = GLUBED) 79 MG/DL 70-110 N Performed by cer tified tugger operator at [facility] GLUCOSE [id number] 12:14:00* Test Item Value Reference Range Interpretation Comme nts GLUCOSE BEDSIDE (test code = GLUBED) 98 MG/DL 70-110 N Performed by cer tified tugger operator at [facility] GLUCOSE [id number] 08:36:00* Test Item Value Reference Range Interpretation Comme nts GLUCOSE BEDSIDE (test code = GLUBED) 92 MG/DL 70-110 N Performed by cer tified tugger operator at [facility] BASIC METABOLIC [id number] 07:50:00* Test Item Value Reference Range Interpretation Comme nts SODIUM (test code = NA) 138 mEq/L 134-147 N POTASSIUM (test code = K) 3.8 mEq/L 3.4-5.0 N CHLORIDE (test code = CL) 107 mEq/L 100-108 N CARBON DIOXIDE (test code = CO2) 29 mEq/l 21-33 N ANION GAP (test code = GAP) 6 0-20 N GLUCOSE (test code = GLU) 98 mg/dL 70-110 N BLOOD UREA NITROGEN (test code = BUN) 11 mg/dL 7-18 N GLOMERULAR FILTRATION RATE (test code = GFR) 84.6 80-90 N The Glomerular Filtration Rate is a calculated parameterbased on serum Creatinine, patient age and sex. GFR valuesless than 60 mL/min/1.73 square meters are indicative ofChronic Kidney Disease. Values less than 15 mL/min/1.73square meters indicate Kidney failure. The calculation forGFR is based on the CKD-EPI (2020) calculation. This formulais race indifferent and is the recommended formula for GFRby the National Kidney Foundation for Adults.The GFR will not calculate if the sex is unknown or if thepatient's age is <18 years. CREATININE (test code = CREAT) 1.0 mg/dL 0.6-1.3 N CALCIUM (test code = CA) 7.6 mg/dL 8.0-10.5 L [id number] 07:50:00* Test Item Value Reference Range Interpretation Comme nts MAGNESIUM (test code = MAG) 1.53 mg/dL 1.80-2.40 L - CTA CHEST FOR [id number] 00:00:00 [facility] 1960 Sex: M Name: MATHEW CASTILLO [facility] : 1960 Age/S: 62 / M [address] [place] [address] Blvd Unit #: [id number] Loc: [place] [address] Phys: Sofia Cheng PLASTIC DIE MAKER APPRENTICE Acct: [id number] Dis Date:Status: ADM IN PHONE #: [phone] Exam Date: 10/23/2022 172 FAX #: [phone] Reason: ELEVATED D DIMER EXAMS: CPT CODE: [id number] [place] [id number] PROCEDURE INFORMATION: Exam: CTA ChestWith Contrast Exam date and time: 10/23/2022 5:24 PM Age: 62 years old Clinical indication: Condition or disease; Other: Elevated d dimer TECHNIQUE: Imaging protocol: Computed tomographic angiography of the chest with contrast. Exam focused on the arteries. 3D rendering (Not supervised by radiologist): MIP and/or 3D reconstructed images were created by the technologist. Radiation optimization: AllCT scans at this facility use at least one of these dose optimization techniques: automated exposure control; mA and/or kV adjustment per patient size (includes targeted exams where dose is matched to clinical indication); or iterative reconstruction. Contrast material: ISOVUE; Contrast volume: 100ml; Contrast route: INTRAVENOUS (IV); REPORTING DATA: Count of CT and Cardiac NM exams in prior 12months: This patient has received [address] and 0 known cardiac nuclear medicine studies in the 12months prior to the current study. COMPARISON: CT CHEST W/CONTRAST, CT ABD PELVIS W/CONT 10/15/2022 9:14 PM FINDINGS: Pulmonary arteries: No pulmonary embolus. Aorta: Unremarkable. No aortic aneurysm.No aortic dissection. Lungs: Left lower lobe atelectasis. Biapical parenchymal scarring. Left upperlobe bronchiectasis. Pleural spaces: Small right pleural effusion [...] the visualized splenic flexure compatible with colitis in completely evaluated. Bones/joints: Unremarkable. No acute fracture. Soft tissues: Unremarkable. Other findings: Thoracic spurring. IMPRESSION: 1. No pulmonary embolus. 2. Extensive colonic wall thickening of the visualized splenic PAGE 1 Signed Report (CONTINUED) Name: MATHEW CASTILLO [facility] : 1960 Age/S: 62 / M [address] [place] [address] Unit #: [id number] Loc: [place] [id number] Phys: Sofia Cheng PLASTIC DIE MAKER APPRENTICE Acct: [id number] Dis Date: Status: ADM IN PHONE #: [phone] Exam Date: 10/23/2022 1721 FAX #: [phone] Reason: ELEVATED D DIMER EXAMS: CPT CODE: [id number] [place] [address] (Continued) flexure compatible with colitis incompletely evaluated. 3. Small right pleural effusion with right lower lobe atelectasis. 4. Left upper lobe bronchiectasis. 5. Minimal anterior pericardial effusion. 6. Type 4 hiatal hernia measures 7.6 cm X 6.5 cm. 7. Gastric fundal wall thickening, correlation with recent endoscopy is recommended to help exclude an infiltratingmucosal process. at 2013 Reported and signed by: Hayden Rg M.D. CC: Sofia Cheng PLASTIC DIE MAKER APPRENTICE; Salinas Dukes MD Technologist:Latoya Pérez, RT(R)(CT); . CTDI: DLP: Trnscb Date/Time: 10/23/2022 (2012) [email or web address] Orig Print D/T: S: 10/23/2022 (2012) PAGE 2 Signed ReportGLUCOSE [id number] 20:23:00* Test Item Value Reference Range Interpretation Comme nts GLUCOSE BEDSIDE (test code = GLUBED) 123 MG/DL 70-110 H Performed by cer tified tugger operator at [facility] GLUCOSE [id number] 17:34:00* Test Item Value Reference Range Interpretation Comme nts GLUCOSE BEDSIDE (test code = GLUBED) 132 MG/DL 70-110 H Performed by [facility] tified tugger operator at [facility] GLUCOSE [id number] 11:57:00* Test Item Value Reference Range Interpretation Comme nts GLUCOSE BEDSIDE (test code = GLUBED) 118 MG/DL 70-110 H Performed by [facility] tified tugger operator at [facility] GLUCOSE [id number] 08:22:00* Test Item Value Reference Range Interpretation Comme nts GLUCOSE BEDSIDE (test code = GLUBED) 100 MG/DL 70-110 N Performed by [facility] [address] [employer] tugger operator at [facility] BASIC METABOLIC [id number] 08:05:00* Test Item Value Reference Range Interpretation Comme nts SODIUM (test code = NA) 139 mEq/L 134-147 N POTASSIUM (test code = K) 4.0 mEq/L 3.4-5.0 CHLORIDE (test code = CL) 107 mEq/L 100-108 N CARBON DIOXIDE (test code = CO2) 30 mEq/l 21-33 N ANION GAP (test code = GAP) 6 0-20 N GLUCOSE (test code = GLU) 102 mg/dL 70-110 N BLOOD UREA NITROGEN (test code = BUN) 12 mg/dL 7-18 N GLOMERULAR FILTRATION RATE (test code = GFR) 75.4 80-90 L The Glomerular Filtration Rate is a calculated parameterbased on serum Creatinine, patient age and sex. GFR valuesless than 60 mL/min/1.73 square meters are indicative ofChronic Kidney Disease. Values less than 15 mL/min/1.73square meters indicate Kidney failure. The calculation forGFR is based on the CKD-EPI (2020) calculation. This formulais race indifferent and is the recommended formula for GFRby the National Kidney Foundation for Adults.The GFR will not calculate if the sex is unknown or if thepatient's age is <18 years. CREATININE (test code = CREAT) 1.1 mg/dL 0.6-1.3 N CALCIUM (test code = CA) 7.8 mg/dL 8.0-10.5 L [id number] 08:05:00* Test Item Value Reference Range Interpretation Comme nts MAGNESIUM (test code = MAG) 1.72 mg/dL 1.80-2.40 L GLUCOSE [id number] 21:10:00* Test Item Value Reference Range Interpretation Comme nts GLUCOSE BEDSIDE (test code = GLUBED) 148 MG/DL 70-110 H Performed by cer tified tugger operator at [facility] GLUCOSE [id number] 17:29:00* Test Item Value Reference Range Interpretation Comme nts GLUCOSE BEDSIDE (test code = GLUBED) 102 MG/DL 70-110 N Performed by cer tified tugger operator at [facility] GLUCOSE [id number] 11:54:00* Test Item Value Reference Range Interpretation Comme nts GLUCOSE BEDSIDE (test code = GLUBED) 104 MG/DL 70-110 N Performed by Domee tugger operator at [facility] CBC W/MANUAL [id number] 10:35:00* Test Item Value Reference Range Interpretation Comme nts WHITE BLOOD CELL (test code = WBC) 13.9 x10 3/uL 4.5-11.0 H RED BLOOD CELL (test code = RBC) 3.97 x10 6/uL 4.00-5.60 L HEMOGLOBIN (test code = HGB) 11.6 g/dL 12.5-16.9 L HEMATOCRIT (test code = HCT) 34.9 % 37.5-50.7 L MEAN CELL VOLUME (test code = MCV) 87.9 fL 81.0-99.0 N MEAN CELL HGB (test code = MCH) 29.2 pg 27.0-33.0 N MEAN CELL HGB CONCETRATION (test code = MCHC) 33.2 g/dL 33.0-37.0 N RED CELL DISTRIBUTION WIDTH CV (test code = RDW) 13.9 % 11.5-14.5 N RED CELL DISTRIBUTION WIDTH SD (test code = RDW-SD) 44.5 fL 37.0-54.0 N PLATELET COUNT (test code = PLT) 321 x10 3/uL 150-400 N MEAN PLATELET VOLUME (test code = MPV) 9.1 fL 7.0-9.0 H BAND NEUTROPHIL (test code = BAND) 8.0 % 0.0-10.0 N ANISOCYTOSIS (test code = ANISO) NORMAL PLATELET ESTIMATE (test code = PLTEST) Adequate THOUSAND ADEQUATE SEGMENTED NEUTROPHILS (test code = SEG) 78 % 37-69 H LYMPHOCYTE (test code = LYMPH) 8 % 23-55 L MONOCYTE (test code = MON) 4 % 0-10 N EOSINOPHIL (test code = EOS) 2 % 0.0-4.0 N PLATELET MORPHOLOGY (test code = PLTMORPH) LARGE PLATELETS GLUCOSE [id number] 07:57:00* Test Item Value Reference Range Interpretation Comme [facility] GLUCOSE BEDSIDE (test code = GLUBED) 95 MG/DL 70-110 N Performed by cer tified tugger operator at [facility] C REACTIVE [id number] 07:48:00* Test Item Value Reference Range Interpretation Comme [facility] C REACTIVE PROTEIN (test cod e = CRP) 36.0 mg/L <10.0 H BASIC METABOLIC [id number] 07:40:00* Test Item Value Reference Range Interpretation Comme [facility] SODIUM (test code = NA) 140 mEq/L 134-147 N POTASSIUM (test code = K) 3.0 mEq/L 3.4-5.0 L CHLORIDE (test code = CL) 105 mEq/L 100-108 N CARBON DIOXIDE (test code = CO2) 29 mEq/l 21-33 ANION GAP (test code = GAP) 9 0-20 N GLUCOSE (test code = GLU) 89 mg/dL 70-110 N BLOOD UREA NITROGEN (test code = BUN) 10 mg/dL 7-18 N GLOMERULAR FILTRATION RATE (test code = GFR) 96.0 80-90 H The Glomerular Filtration Rate is a calculated parameterbased on serum Creatinine, patient age and sex. GFR valuesless than 60 mL/min/1.73 square meters are indicative ofChronic Kidney Disease. Values less than 15 mL/min/1.73square meters indicate Kidney failure. The calculation forGFR is based on the CKD-EPI (2020) calculation. This formulais race indifferent and is the recommended formula for GFRby the National Kidney Foundation for Adults.The GFR will not calculate if the sex is unknown or if thepatient's age is <18 years. CREATININE (test code = CREAT) 0.9 mg/dL 0.6-1.3 N CALCIUM (test code = CA) 7.3 mg/dL 8.0-10.5 L [id number] 07:40:00* Test Item Value Reference Range Interpretation Comme nts MAGNESIUM (test code = MAG) 1.50 mg/dL 1.80-2.40 L [id number] 07:04:00* Test Item Value Reference Range Interpretation Comme nts D-DIMER (test code = DDIMER) 5949 ng/mlFEU See_Comment HH Critical result called to Brigido RUIZLAB.JJ1 at 0701 10/21/22Nurse read back result and tech confirmed it's correct? YESTHROMBOSIS AND/OR PULMONARY EMBOLISM AND THE CLINICAL CUT- OFF VALUE FOR EXCLUSION (500 ng/mL FEU) OF THESE CONDITIONSIS VALIDATED BY THE WAY INSPECTOR OF THE METHOD. A NEGATIVE D-DIMER RESULT WHEN COMBINED WITH A CLINICALASSESSMENT OF LOW PRETEST PROBABILITY HAS BEEN SHOWN TO HAVEA HIGH NEGATIVE PREDICTIVE VALUE OF DVT OR PE. D-DIMER VALUES >500 ng/mL FEU ARE NOT DIAGNOSTIC FOR DVT, PEor DIC WITHOUT OTHER CONFIRMATORY TESTS AND APPROPRIATECLINICAL EUALUATIONS. [Automated message] The system which generated this result transmitted reference range: <=500. The reference range was not used to interpret this result as normal/abnormal. - DUP VEIN [id number] 00:00:00 [facility] HUANGName: MATHEW CASTILLO : 1960 Sex: M Name: MATHEW CASTILLO [facility] Barrera Huang : 1960 Age/S: 62 / M [address] [place] [address] Bl Unit #: [id number] Loc: [place] [address] Phys: Skip Jaffe MD Acct: [id number] Dis Date: Status: ADM IN PHONE #: [phone] Exam Date: 10/21/2022820 FAX #: [phone] Reason: R/o DVT EXAMS: CPT CODE: [id number] DUP VEIN ASAEL [id number] PROCEDURE INFORMATION: Exam: US Duplex Lower ExtremityVeins, Bilateral Exam date and time: 10/21/2022 7:49 [...] and posterior tibial veins are patent without thrombus.Normal Doppler waveforms. Normal compressibility and/or augmentation response. [...] MD; Salinas Dukes MD Technologist: [facility] Date/Time: 10/21/2022 (911) [email or web address] Orig Print D/T: S: 10/21/2022 (911) Probe: PAGE 1 Signed Report GLUCOSE [id number] 20:40:00* Test Item Value Reference Range Interpretation Comme [facility] GLUCOSE BEDSIDE (test code = GLUBED) 148 MG/DL 70-110 H Performed by cer tified tugger operator at [facility] GLUCOSE [id number] 16:46:00* Test Item Value Reference Range Interpretation Comme [facility] GLUCOSE BEDSIDE (test code = GLUBED) 118 MG/DL 70-110 H Performed by cer tified tugger operator at [facility] GLUCOSE [id number] 16:46:00* Test Item Value Reference Range Interpretation Comme [facility] GLUCOSE BEDSIDE (test code = GLUBED) 122 MG/DL 70-110 H Performed by cer tified tugger operator at [facility] TROP-I HIGH [id number] 15:04:00* Test Item Value Reference Range Interpretation Comme [facility] TROP-I HIGH SENSITIVITY (test code = TROPIHS) < 3 ng/L 0-54 N CAUTION: Units o f the current test methodology (ng/L) differfrom the prior test methodology (ng/mL) by a factor of 1000. 99th Percentile Upper Reference Limit (URL): Females: 34 ng/LMales: 54 ng/L In order to distinguish acute elevations of high sensitivitytroponin from other clinical conditions, the FourthUniversal Definition of Myocardial Infarction stressesclinical assessment and the demonstration of a rise and/orfall in serial troponin results above the URL. These results were obtained using [employer] TnIHreagent. Results from different methodologies should not becompared to one another as quantitative results and URLs mayvary by method. BASIC METABOLIC [id number] 15:04:00* Test Item Value Reference Range Interpretation Comme nts SODIUM (test code = NA) 138 mEq/L 134-147 N POTASSIUM (test code = K) 3.4 mEq/L 3.4-5.0 N CHLORIDE (test code = CL) 107 mEq/L 100-108 N CARBON DIOXIDE (test code = CO2) 20 mEq/l 21-33 L ANION GAP (test code = GAP) 14 0-20 N GLUCOSE (test code = GLU) 84 mg/dL 70-110 BLOOD UREA NITROGEN (test code = BUN) 9 mg/dL 7-18 N GLOMERULAR FILTRATION RATE (test code = GFR) 99.4 80-90 H The Glomerular Filtration Rate is a calculated parameterbased on serum Creatinine, patient age and sex. GFR valuesless than 60 mL/min/1.73 square meters are indicative ofChronic Kidney Disease. Values less than 15 mL/min/1.73square meters indicate Kidney failure. The calculation forGFR is based on the CKD-EPI (2020) calculation. This formulais race indifferent and is the recommended formula for GFRby the National Kidney Foundation for Adults.The GFR will not calculate if the sex is unknown or if thepatient's age is <18 years. CREATININE (test code = CREAT) 0.8 mg/dL 0.6-1.3 N CALCIUM (test code = CA) 7.1 mg/dL 8.0-10.5 L TROP-I HIGH [id number] 10:07:00* Test Item Value Reference Range Interpretation Comme nts TROP-I HIGH SENSITIVITY (test code = TROPIHS) < 3 ng/L 0-54 N CAUTION: Units o f the current test methodology (ng/L) differfrom the prior test methodology (ng/mL) by a factor of 1000. 99th Percentile Upper Reference Limit (URL): Females: 34 ng/LMales: 54 ng/L In order to distinguish acute elevations of high sensitivitytroponin from other clinical conditions, the FourthUniversal Definition of Myocardial Infarction stressesclinical assessment and the demonstration of a rise and/orfall in serial troponin results above the URL. These results were obtained using [employer] IM TnIHreagent. Results from different methodologies should not becompared to one another as quantitative results and URLs mayvary by method. CBC W/AUTO [id number] 09:54:00* Test Item Value Reference Range Interpretation Comme nts WHITE BLOOD CELL (test code = WBC) 17.6 x10 3/uL 4.5-11.0 H RED BLOOD CELL (test code = RBC) 4.08 x10 6/uL 4.00-5.60 N HEMOGLOBIN (test code = HGB) 11.7 g/dL 12.5-16.9 L HEMATOCRIT (test code = HCT) 36.5 % 37.5-50.7 L MEAN CELL VOLUME (test code = MCV) 89.5 fL 81.0-99.0 N MEAN CELL HGB (test code = MCH) 28.7 pg 27.0-33.0 N MEAN CELL HGB CONCETRATION (test code = MCHC) 32.1 g/dL 33.0-37.0 L RED CELL DISTRIBUTION WIDTH CV (test code = RDW) 14.0 % 11.5-14.5 N RED CELL DISTRIBUTION WIDTH SD (test code = RDW-SD) 45.6 fL 37.0-54.0 N PLATELET COUNT (test code = PLT) 341 x10 3/uL 150-400 N MEAN PLATELET VOLUME (test code = MPV) 9.5 fL 7.0-9.0 H NEUTROPHIL % (test code = NT%) 78.3 % 56.0-77.0 H IMMATURE GRANULOCYTE % (test code = IG%) 2.0 % 0.0-2.0 N LYMPHOCYTE % (test code = LY%) 9.5 % 14.0-32.0 L MONOCYTE % (test code = MO%) 7.2 % 4.8-9.0 N EOSINOPHIL % (test code = EO%) 2.6 % 0.3-3.7 N BASOPHIL % (test code = BA%) 0.4 % 0.0-2.0 N NUCLEATED RBC % (test code = NRBC%) 0.0 % 0-0 N NEUTROPHIL # (test code = NT#) 13.75 x10 3/uL 2.0-7.6 H IMMATURE GRANULOCYTE # (test code = IG#) 0.35 x10 3/uL 0.00-0.03 H LYMPHOCYTE # (test code = LY#) 1.67 x10 3/uL 1.0-3.8 N MONOCYTE # (test code = MO#) 1.27 x10 3/uL 0.1-0.8 H EOSINOPHIL # (test code = EO#) 0.46 x10 3/uL 0.0-0.2 H BASOPHIL # (test code = BA#) 0.07 x10 3/uL 0.0-0.2 N NUCLEATED RBC # (test code = NRBC#) 0.00 x10 3/uL 0.0-0.1 N MANUAL DIFF REQUIRED (test code = MDIFF) NO TROP-I HIGH [id number] 09:24:00* Test Item Value Reference Range Interpretation Comme nts TROP-I HIGH SENSITIVITY (test code = TROPIHS) < 3 ng/L 0-54 N CAUTION: Units o f the current test methodology (ng/L) differfrom the prior test methodology (ng/mL) by a factor of 1000. 99th Percentile Upper Reference Limit (URL): Females: 34 ng/LMales: 54 ng/L In order to distinguish acute elevations of high sensitivitytroponin from other clinical conditions, the FourthUniversal Definition of Myocardial Infarction stressesclinical assessment and the demonstration of a rise and/orfall in serial troponin results above the URL. These results were obtained using [employer] IM TnIHreagent. Results from different methodologies should not becompared to one another as quantitative results and URLs mayvary by method. GLUCOSE [id number] 08:49:00* Test Item Value Reference Range Interpretation Comme nts GLUCOSE BEDSIDE (test code = GLUBED) 102 MG/DL 70-110 N Performed by cer violeta tugger operator at [facility] COMPREHENSIVE METABOLIC [id number] 02:08:00* Test Item Value Reference Range Interpretation Comme nts SODIUM (test code = NA) 138 mEq/L 134-147 N POTASSIUM (test code = K) 3.0 mEq/L 3.4-5.0 L CHLORIDE (test code = CL) 105 mEq/L 100-108 N CARBON DIOXIDE (test code = CO2) 30 mEq/l 21-33 N ANION GAP (test code = GAP) 6 0-20 N GLUCOSE (test code = GLU) 115 mg/dL 70-110 H BLOOD UREA NITROGEN (test code = BUN) 12 mg/dL 7-18 N GLOMERULAR FILTRATION RATE (test code = GFR) 99.4 80-90 H The Glomerular Filtration Rate is a calculated parameterbased on serum Creatinine, patient age and sex. GFR valuesless than 60 mL/min/1.73 square meters are indicative ofChronic Kidney Disease. Values less than 15 mL/min/1.73square meters indicate Kidney failure. The calculation forGFR is based on the CKD-EPI (202) calculation. This formulais race indifferent and is the recommended formula for GFRby the National Kidney Foundation for Adults.The GFR will not calculate if the sex is unknown or if thepatient's age is <18 years. CREATININE (test code = CREAT) 0.8 mg/dL 0.6-1.3 N TOTAL PROTEIN (test code = PROT) 5.0 g/dL 6.4-8.2 L ALBUMIN (test code = ALB) 2.30 g/dL 3.4-5.0 L CALCIUM (test code = CA) 7.2 mg/dL 8.0-10.5 L BILIRUBIN TOTAL (test code = BILT) 0.30 mg/dL 0.0-1.0 SGOT/AST (test code = AST) 25 IUnit/L 15-37 N SGPT/ALT (test code = ALT) 28 IUnit/L 30-65 L ALKALINE PHOSPHATASE TOTAL (test code = ALKP) 47 IUnit/L 20-125 N [id number] 02:08:00* Test Item Value Reference Range Interpretation [facility] L[facility] (test code = LIP) 57 U/L 13-57 N PROTHROMBIN [id number] 02:05:00* Test Item Value Reference Range Interpretation Comme [facility] PROTHROMBIN TIME PATIENT (test code = PTP) 12.7 SECONDS 9.3-12.9 N INTERNATIONAL NORMAL RATIO (test code = INR) 1.1 0.8-1.2 N TARGET INR BY INDICATION Indication INR1. Prophylaxis of venous thrombosis 2.0 - 3.0 (orthopedic surgery), Prophylaxis of venous thrombosis (other than high-risk surgery), Treatment of Deep Vein Thrombosis/Pulmonary Embolism, Prevention of systemic embolism - Tissue heart valves, Acute Myocardial Infarction (to prevent systemic embolism), Valvular heart disease, Atrial Fibrillation, Bileaflet mechanical valve in aortic position.2. Mechanical prosthetic valves (high risk), 2.5 - 3.5 Presence of Lupus Anticoagulant or Antiphospholipid Antibodies, Prevention of systemic embolism - Acute Myocardial Infarction (to prevent recurrent infarct). THROMBOPLASTIN TIME [id number] 02:05:00* Test Item Value Reference Range Interpretation [facility] THROMBOPLASTIN TIME PARTIAL (test code = PTT) 26.1 Seconds 25.0-39.5 N Therapeutic Rang e: 50.4 - 88.3 Seconds Effective 07/21/2018 LACTIC [id number] 01:59:00* Test Item Value Reference Range [facility]ation [facility] L[facility] (test code = LACT) 1.1 mmol/L 0.4-1.9 N CBC W/AUTO [id number] 01:51:00* Test Item Value Reference Range [facility]ation [facility] WHITE BLOOD CELL (test code = WBC) 19.1 x10 3/uL 4.5-11.0 H RED BLOOD CELL (test code = RBC) 4.20 x10 6/uL 4.00-5.60 N HEMOGLOBIN (test code = HGB) 12.3 g/dL 12.5-16.9 L HEMATOCRIT (test code = HCT) 37.2 % 37.5-50.7 L MEAN CELL VOLUME (test code = MCV) 88.6 fL 81.0-99.0 N MEAN CELL HGB (test code = MCH) 29.3 pg 27.0-33.0 N MEAN CELL HGB CONCETRATION (test code = MCHC) 33.1 g/dL 33.0-37.0 N RED CELL DISTRIBUTION WIDTH CV (test code = RDW) 13.8 % 11.5-14.5 N RED CELL DISTRIBUTION WIDTH SD (test code = RDW-SD) 45.1 fL 37.0-54.0 N PLATELET COUNT (test code = PLT) 328 x10 3/uL 150-400 N MEAN PLATELET VOLUME (test code = MPV) 8.9 fL 7.0-9.0 N NEUTROPHIL % (test code = NT%) 80.7 % 56.0-77.0 H IMMATURE GRANULOCYTE % (test code = IG%) 2.0 % 0.0-2.0 N LYMPHOCYTE % (test code = LY%) 7.3 % 14.0-32.0 L MONOCYTE % (test code = MO%) 7.5 % 4.8-9.0 N EOSINOPHIL % (test code = EO%) 2.2 % 0.3-3.7 N BASOPHIL % (test code = BA%) 0.3 % 0.0-2.0 N NUCLEATED RBC % (test code = NRBC%) 0.0 % 0-0 N NEUTROPHIL # (test code = NT#) 15.38 x10 3/uL 2.0-7.6 H IMMATURE GRANULOCYTE # (test code = IG#) 0.39 x10 3/uL 0.00-0.03 H LYMPHOCYTE # (test code = LY#) 1.40 x10 3/uL 1.0-3.8 N MONOCYTE # (test code = MO#) 1.44 x10 3/uL 0.1-0.8 H EOSINOPHIL # (test code = EO#) 0.42 x10 3/uL 0.0-0.2 H BASOPHIL # (test code = BA#) 0.05 x10 3/uL 0.0-0.2 N NUCLEATED RBC # (test code = NRBC#) 0.00 x10 3/uL 0.0-0.1 N MANUAL DIFF REQUIRED (test code = MDIFF) NO - XR CHEST 1 [id number] 00:00:00 [facility] : 1960 Sex: M FAX: Sofia Cheng NP [phone] [place]: St: ADM FAX: Peggy Fernanda DukesSalinas Osman [phone] [facility] [place] : 1960 Age/S: 62/M [address] [place] [address] Unit #: [id number] Loc:G.6630 [place] [address] Phys: Sofia Cheng NP Acct: [id number] Dis Date: Status: ADM IN PHONE #: [phone] Exam Date: 10/20/20227 FAX #: [phone] Reason: Sepsis EXAMS: CPT CODE: [id number] XR CHEST 1 V [id number] PROCEDURE INFORMATION: Exam: XR Chest Exam date [...] pneumothorax. Heart/Mediastinum: No cardiomegaly. Bones/joints: No acute abnormality. IMPRESSION: Mild interstitial pulmonary edema. No focal consolidation. at 0214 Reported and signed by: Reinaldo Jacobs M.D. CC: Sofia Cheng PLASTIC DIE MAKER APPRENTICE; Salinas Dukes MD Technologist: RT Nadeem(R) Trnscrd Date/Time/By: 10/20/2022 (213) : By: [email or web address] Orig Print D/T: S: 10/20/2022 (5) PAGE 1 Signed ReportGLUCOSE [id number] 21:00:00* Test Item Value Reference Range Interpretation Comme nts GLUCOSE BEDSIDE (test code = GLUBED) 135 MG/DL 70-110 H Performed by cer violeta tugger operator at [facility] URINALYSIS [id number] 20:03:00* Test Item Value Reference Range Interpretation Comme nts UA COLOR (test code = COLU) YELLOW YEL/STRAW UA APPEARANCE (test code = APPU) SL CLOUDY CLEAR UA GLUCOSE DIPSTICK (test co de = DGLUU) NEGATIVE NEGATIVE UA BILIRUBIN DIPSTICK (test code = BILU) NEGATIVE NEGATIVE UA KETONE DIPSTICK (test cod e = KETU) NEGATIVE NEGATIVE UA SPECIFIC GRAVITY (test co de = SGU) 1.015 1.005-1.030 N UA BLOOD DIPSTICK (test code = ROXANA) 3+ NEGATIVE A UA PH DIPSTICK (test code = FORREST) 5.0 5.0-7.0 N UA PROTEIN DIPSTICK (test co de = PROU) 1+ NEGATIVE A UA UROBILINIOGEN DIPSTICK (t est code = URO) 0.2 mg/dL 0.2-1.0 UA NITRITE DIPSTICK (test co de = CR) NEGATIVE NEGATIVE UA LEUKOCYTE ESTERASE DIPSTI CK (test code = LEUU) 1+ NEGATIVE A UA RBC (test code = RBCU) >50 RBC/HPF 0-3 A UA WBC NO REFLEX (test code = WBCUCL) >50 WBC/HPF 0-3 A UA BACTERIA (test code = BACU) TRACE /HPF NONE SEEN UA SQUAMOUS CELLS (test code = SQU) 0-5 /HPF NONE SEEN UA HYALINE CAST (test code = HYALU) 11-20 /LPF NONE SEEN UA MUCUS (test code = MUCU) 1+ /LPF NONE SEEN UR SODIUM [id number] 20:03:00* Test Item Value Reference Range Interpretation Comme nts UR SODIUM RANDOM (test code = ALPHONSE) 102 MEQ/L The Reference Ra nge and Method Performance specificationshave not been established for this fluid. The test resultshould be correlated into the clinical context forinterpretation. UR PROTEIN [id number] 20:03:00* Test Item Value Reference Range Interpretation Comme nts UR PROTEIN RANDOM (test code = PROTU) 79 mg/dL UR CREATININE [id number] 20:03:00* Test Item Value Reference Range Interpretation Comme nts UR CREATININE RANDOM (test code = CREATU) 111.9 mg/dL The Reference Ra nge and Method Performance specificationshave not been established for this fluid. The test resultshould be correlated into the clinical context forinterpretation. UR OSMOLALITY [id number] 20:03:00* Test Item Value Reference Range Interpretation Comme nts UR OSMOLALITY RANDOM (test c ode = OSMOU) 575 MOS/KG 300-1000 UR OSMOLALITY [id number] 20:02:00* Test Item Value Reference Range Interpretation Comme nts UR OSMOLALITY RANDOM (test c ode = OSMOU) 575 MOS/KG 300-1000 N GLUCOSE [id number] 17:18:00* Test Item Value Reference Range Interpretation Comme nts GLUCOSE BEDSIDE (test code = GLUBED) 122 MG/DL 70-110 H Performed by cer tified tugger operator at [facility] GLUCOSE [id number] 12:48:00* Test Item Value Reference Range Interpretation Comme nts GLUCOSE BEDSIDE (test code = GLUBED) 109 MG/DL 70-110 N Performed by cer tified tugger operator at [facility] GLUCOSE [id number] 07:53:00* Test Item Value Reference Range Interpretation Comme nts GLUCOSE BEDSIDE (test code = GLUBED) 96 MG/DL 70-110 N Performed by cer tified tugger operator at [facility] BASIC METABOLIC [id number] 07:51:00* Test Item Value Reference Range Interpretation Comme nts SODIUM (test code = NA) 139 mEq/L 134-147 N POTASSIUM (test code = K) 3.6 mEq/L 3.4-5.0 N CHLORIDE (test code = CL) 106 mEq/L 100-108 N CARBON DIOXIDE (test code = CO2) 27 mEq/l 21-33 N ANION GAP (test code = GAP) 10 0-20 N GLUCOSE (test code = GLU) 85 mg/dL 70-110 N BLOOD UREA NITROGEN (test code = BUN) 10 mg/dL 7-18 N GLOMERULAR FILTRATION RATE (test code = GFR) 99.4 80-90 H The Glomerular Filtration Rate is a calculated parameterbased on serum Creatinine, patient age and sex. GFR valuesless than 60 mL/min/1.73 square meters are indicative ofChronic Kidney Disease. Values less than 15 mL/min/1.73square meters indicate Kidney failure. The calculation forGFR is based on the CKD-EPI (2020) calculation. This formulais race indifferent and is the recommended formula for GFRby the National Kidney Foundation for Adults.The GFR will not calculate if the sex is unknown or if thepatient's age is <18 years. CREATININE (test code = CREAT) 0.8 mg/dL 0.6-1.3 N CALCIUM (test code = CA) 7.5 mg/dL 8.0-10.5 L [id number] 07:51:00* Test Item Value Reference Range Interpretation Comme nts MAGNESIUM (test code = MAG) 1.65 mg/dL 1.80-2.40 L CBC W/AUTO [id number] 07:07:00* Test Item Value Reference Range Interpretation Comme nts WHITE BLOOD CELL (test code = WBC) 9.5 x10 3/uL 4.5-11.0 N RED BLOOD CELL (test code = RBC) 4.04 x10 6/uL 4.00-5.60 N HEMOGLOBIN (test code = HGB) 11.7 g/dL 12.5-16.9 L HEMATOCRIT (test code = HCT) 35.5 % 37.5-50.7 L MEAN CELL VOLUME (test code = MCV) 87.9 fL 81.0-99.0 N MEAN CELL HGB (test code = MCH) 29.0 pg 27.0-33.0 N MEAN CELL HGB CONCETRATION (test code = MCHC) 33.0 g/dL 33.0-37.0 N RED CELL DISTRIBUTION WIDTH CV (test code = RDW) 14.0 % 11.5-14.5 N RED CELL DISTRIBUTION WIDTH SD (test code = RDW-SD) 44.7 fL 37.0-54.0 N PLATELET COUNT (test code = PLT) 313 x10 3/uL 150-400 N MEAN PLATELET VOLUME (test c ode = MPV) 9.5 fL 7.0-9.0 H NEUTROPHIL % (test code = NT%) 64.4 % 56.0-77.0 N IMMATURE GRANULOCYTE % (test code = IG%) 4.7 % 0.0-2.0 H LYMPHOCYTE % (test code = LY%) 15.7 % 14.0-32.0 N MONOCYTE % (test code = MO%) 8.5 % 4.8-9.0 N EOSINOPHIL % (test code = EO%) 6.0 % 0.3-3.7 H BASOPHIL % (test code = BA%) 0.7 % 0.0-2.0 N NUCLEATED RBC % (test code = NRBC%) 0.0 % 0-0 N NEUTROPHIL # (test code = NT#) 6.09 x10 3/uL 2.0-7.6 N IMMATURE GRANULOCYTE # (test code = IG#) 0.44 x10 3/uL 0.00-0.03 H LYMPHOCYTE # (test code = LY#) 1.48 x10 3/uL 1.0-3.8 N MONOCYTE # (test code = MO#) 0.80 x10 3/uL 0.1-0.8 N EOSINOPHIL # (test code = EO#) 0.57 x10 3/uL 0.0-0.2 H BASOPHIL # (test code = BA#) 0.07 x10 3/uL 0.0-0.2 N NUCLEATED RBC # (test code = NRBC#) 0.00 x10 3/uL 0.0-0.1 N MANUAL DIFF REQUIRED (test c ode = MDIFF) NO GLUCOSE [id number] 20:44:00* Test Item Value Reference Range Interpretation Comme nts GLUCOSE BEDSIDE (test code = GLUBED) 116 MG/DL 70-110 H Performed by cer tified tugger operator at [facility] GLUCOSE [id number] 18:07:00* Test Item Value Reference Range Interpretation Comme nts GLUCOSE BEDSIDE (test code = GLUBED) 98 MG/DL 70-110 N Performed by cer tified tugger operator at [facility] GLUCOSE [id number] 12:23:00* Test Item Value Reference Range Interpretation Comme nts GLUCOSE BEDSIDE (test code = GLUBED) 135 MG/DL 70-110 H Performed by cer tified tugger operator at [facility] GLUCOSE [id number] 11:22:00* Test Item Value Reference Range Interpretation Comme nts GLUCOSE BEDSIDE (test code = GLUBED) 104 MG/DL 70-110 N Performed by cer tified tugger operator at [facility] BASIC METABOLIC [id number] 08:12:00* Test Item Value Reference Range Interpretation Comme nts SODIUM (test code = NA) 138 mEq/L 134-147 N POTASSIUM (test code = K) 3.1 mEq/L 3.4-5.0 L CHLORIDE (test code = CL) 104 mEq/L 100-108 N CARBON DIOXIDE (test code = CO2) 30 mEq/l 21-33 N ANION GAP (test code = GAP) 7 0-20 N GLUCOSE (test code = GLU) 97 mg/dL 70-110 N BLOOD UREA NITROGEN (test code = BUN) 12 mg/dL 7-18 N GLOMERULAR FILTRATION RATE (test code = GFR) 99.4 80-90 H The Glomerular Filtration Rate is a calculated parameterbased on serum Creatinine, patient age and sex. GFR valuesless than 60 mL/min/1.73 square meters are indicative ofChronic Kidney Disease. Values less than 15 mL/min/1.73square meters indicate Kidney failure. The calculation forGFR is based on the CKD-EPI (2020) calculation. This formulais race indifferent and is the recommended formula for GFRby the National Kidney Foundation for Adults.The GFR will not calculate if the sex is unknown or if thepatient's age is <18 years. CREATININE (test code = CREAT) 0.8 mg/dL 0.6-1.3 N CALCIUM (test code = CA) 7.4 mg/dL 8.0-10.5 L [id number] 08:12:00* Test Item Value Reference Range Interpretation Comme nts MAGNESIUM (test code = MAG) 1.48 mg/dL 1.80-2.40 L CBC W/AUTO [id number] 08:09:00* Test Item Value Reference Range Interpretation Comme nts WHITE BLOOD CELL (test code = WBC) 8.9 x10 3/uL 4.5-11.0 N RED BLOOD CELL (test code = RBC) 4.00 x10 6/uL 4.00-5.60 N HEMOGLOBIN (test code = HGB) 11.8 g/dL 12.5-16.9 L HEMATOCRIT (test code = HCT) 35.4 % 37.5-50.7 L MEAN CELL VOLUME (test code = MCV) 88.5 fL 81.0-99.0 N MEAN CELL HGB (test code = MCH) 29.5 pg 27.0-33.0 N MEAN CELL HGB CONCETRATION (test code = MCHC) 33.3 g/dL 33.0-37.0 N RED CELL DISTRIBUTION WIDTH CV (test code = RDW) 14.0 % 11.5-14.5 N RED CELL DISTRIBUTION WIDTH SD (test code = RDW-SD) 45.3 fL 37.0-54.0 N PLATELET COUNT (test code = PLT) 294 x10 3/uL 150-400 N MEAN PLATELET VOLUME (test c ode = MPV) 9.8 fL 7.0-9.0 H NEUTROPHIL % (test code = NT%) 62.2 % 56.0-77.0 N IMMATURE GRANULOCYTE % (test code = IG%) 3.9 % 0.0-2.0 H LYMPHOCYTE % (test code = LY%) 15.6 % 14.0-32.0 N MONOCYTE % (test code = MO%) 10.1 % 4.8-9.0 H EOSINOPHIL % (test code = EO%) 7.5 % 0.3-3.7 H BASOPHIL % (test code = BA%) 0.7 % 0.0-2.0 N NUCLEATED RBC % (test code = NRBC%) 0.0 % 0-0 N NEUTROPHIL # (test code = NT#) 5.53 x10 3/uL 2.0-7.6 N IMMATURE GRANULOCYTE # (test code = IG#) 0.35 x10 3/uL 0.00-0.03 H LYMPHOCYTE # (test code = LY#) 1.39 x10 3/uL 1.0-3.8 N MONOCYTE # (test code = MO#) 0.90 x10 3/uL 0.1-0.8 H EOSINOPHIL # (test code = EO#) 0.67 x10 3/uL 0.0-0.2 H BASOPHIL # (test code = BA#) 0.06 x10 3/uL 0.0-0.2 N NUCLEATED RBC # (test code = NRBC#) 0.00 x10 3/uL 0.0-0.1 N MANUAL DIFF REQUIRED (test c ode = MDIFF) NO GLUCOSE [id number] 05:56:00* Test Item Value Reference Range Interpretation Comme nts GLUCOSE BEDSIDE (test code = GLUBED) 104 MG/DL 70-110 N Performed by cer tified tugger operator at [facility] GLUCOSE [id number] 03:31:00* Test Item Value Reference Range Interpretation Comme nts GLUCOSE BEDSIDE (test code = GLUBED) 129 MG/DL 70-110 H Performed by cer tified tugger operator at [facility] GLUCOSE [id number] 12:50:00* Test Item Value Reference Range Interpretation Comme nts GLUCOSE BEDSIDE (test code = GLUBED) 177 MG/DL 70-110 H Performed by cer tified tugger operator at [facility] CBC W/AUTO [id number] 10:14:00* Test Item Value Reference Range Interpretation Comme nts WHITE BLOOD CELL (test code = WBC) 11.5 x10 3/uL 4.5-11.0 H RED BLOOD CELL (test code = RBC) 4.17 x10 6/uL 4.00-5.60 N HEMOGLOBIN (test code = HGB) 12.0 g/dL 12.5-16.9 L HEMATOCRIT (test code = HCT) 35.7 % 37.5-50.7 L MEAN CELL VOLUME (test code = MCV) 85.6 fL 81.0-99.0 N MEAN CELL HGB (test code = MCH) 28.8 pg 27.0-33.0 N MEAN CELL HGB CONCETRATION (test code = MCHC) 33.6 g/dL 33.0-37.0 N RED CELL DISTRIBUTION WIDTH CV (test code = RDW) 14.2 % 11.5-14.5 N RED CELL DISTRIBUTION WIDTH SD (test code = RDW-SD) 44.5 fL 37.0-54.0 N PLATELET COUNT (test code = PLT) 285 x10 3/uL 150-400 N MEAN PLATELET VOLUME (test code = MPV) 9.9 fL 7.0-9.0 H NEUTROPHIL % (test code = NT%) 71.5 % 56.0-77.0 N LYMPHOCYTE % (test code = LY%) 10.6 % 14.0-32.0 L NEUTROPHIL # (test code = NT#) 8.23 x10 3/uL 2.0-7.6 H LYMPHOCYTE # (test code = LY#) 1.22 x10 3/uL 1.0-3.8 N MANUAL DIFF REQUIRED (test code = MDIFF) NO SLIDE REVIEW ED, CONSISTENT WITH AUTO DIFF. IMMATURE GRANULOCYTE % (test code = IG%) 2.0 % 0.0-2.0 N MONOCYTE % (test code = MO%) 12.8 % 4.8-9.0 H EOSINOPHIL % (test code = EO%) 2.7 % 0.3-3.7 N BASOPHIL % (test code = BA%) 0.4 % 0.0-2.0 N NUCLEATED RBC % (test code = NRBC%) 0.0 % 0-0 N IMMATURE GRANULOCYTE # (test code = IG#) 0.23 x10 3/uL 0.00-0.03 H MONOCYTE # (test code = MO#) 1.47 x10 3/uL 0.1-0.8 H EOSINOPHIL # (test code = EO#) 0.31 x10 3/uL 0.0-0.2 H BASOPHIL # (test code = BA#) 0.05 x10 3/uL 0.0-0.2 N NUCLEATED RBC # (test code = NRBC#) 0.00 x10 3/uL 0.0-0.1 N VITAMIN D [id number] 08:19:00* Test Item Value Reference Range Interpretation Comme nts VITAMIN D 25-HYDROXY (test c ode = VITD25) 25.5 ng/mL 30-100 L Indication for Test: PTH DisorderCOMPREHENSIVE METABOLIC [id number] 08:14:00* Test Item Value Reference Range Interpretation Comme nts SODIUM (test code = NA) 140 mEq/L 134-147 N POTASSIUM (test code = K) 3.2 mEq/L 3.4-5.0 L CHLORIDE (test code = CL) 105 mEq/L 100-108 N CARBON DIOXIDE (test code = CO2) 26 mEq/l 21-33 N ANION GAP (test code = GAP) 12 0-20 N GLUCOSE (test code = GLU) 103 mg/dL 70-110 N BLOOD UREA NITROGEN (test code = BUN) 18 mg/dL 7-18 N GLOMERULAR FILTRATION RATE (test code = GFR) 96.0 80-90 H The Glomerular Filtration Rate is a calculated parameterbased on serum Creatinine, patient age and sex. GFR valuesless than 60 mL/min/1.73 square meters are indicative ofChronic Kidney Disease. Values less than 15 mL/min/1.73square meters indicate Kidney failure. The calculation forGFR is based on the CKD-EPI (2020) calculation. This formulais race indifferent and is the recommended formula for GFRby the National Kidney Foundation for Adults.The GFR will not calculate if the sex is unknown or if thepatient's age is <18 years. CREATININE (test code = CREAT) 0.9 mg/dL 0.6-1.3 N TOTAL PROTEIN (test code = PROT) 5.6 g/dL 6.4-8.2 L ALBUMIN (test code = ALB) 2.40 g/dL 3.4-5.0 L CALCIUM (test code = CA) 8.4 mg/dL 8.0-10.5 N BILIRUBIN TOTAL (test code = BILT) 0.50 mg/dL 0.0-1.0 SGOT/AST (test code = AST) 23 IUnit/L 15-37 N SGPT/ALT (test code = ALT) 24 IUnit/L 30-65 L ALKALINE PHOSPHATASE TOTAL (test code = ALKP) 62 IUnit/L 20-125 N [id number] 08:14:00* Test Item Value Reference Range Interpretation Comme nts PHOSPHOROUS (test code = PHOS) 2.6 MG/DL 2.5-4.9 N [id number] 08:14:00* Test Item Value Reference Range Interpretation Comme nts MAGNESIUM (test code = MAG) 1.50 mg/dL 1.80-2.40 L GLUCOSE [id number] 07:40:00* Test Item Value Reference Range Interpretation Comme nts GLUCOSE BEDSIDE (test code = GLUBED) 105 MG/DL 70-110 N Performed by cer tified tugger operator at [facility] GLUCOSE [id number] 17:26:00* Test Item Value Reference Range Interpretation Comme [facility] GLUCOSE BEDSIDE (test code = GLUBED) 113 MG/DL 70-110 H Performed by teto mcdaniel tugger operator at [facility] PROTHROMBIN [id number] 15:23:00* Test Item Value Reference Range Interpretation Comme [facility] PROTHROMBIN TIME PATIENT (test code = PTP) 14.3 SECONDS 9.3-12.9 H INTERNATIONAL NORMAL RATIO (test code = INR) 1.3 0.8-1.2 H TARGET INR BY INDICATION Indication INR1. Prophylaxis of venous thrombosis 2.0 - 3.0 (orthopedic surgery), Prophylaxis of venous thrombosis (other than high-risk surgery), Treatment of Deep Vein Thrombosis/Pulmonary Embolism, Prevention of systemic embolism - Tissue heart valves, Acute Myocardial Infarction (to prevent systemic embolism), Valvular heart disease, Atrial Fibrillation, Bileaflet mechanical valve in aortic position.2. Mechanical prosthetic valves (high risk), 2.5 - 3.5 Presence of Lupus Anticoagulant or Antiphospholipid Antibodies, Prevention of systemic embolism - Acute Myocardial Infarction (to prevent recurrent infarct). TSH REFLEX TO [id number] 14:32:00* Test Item Value Reference Range Interpretation Comme [facility] TSH REFLEX TO FT4 (test code = TSHREFLEX) 1.59 IU/mL 0.42-5.47 N HGBA1C%2022-10-16 14:19:00* Test Item Value Reference Range Interpretation Comme [facility] HGBA1C% (test code = HGBA1C%) 5.5 %A1C 4.8-6.0 N [id number] 14:13:00* Test Item Value Reference Range Interpretation Comme [facility] MAGNESIUM (test code = MAG) 1.91 mg/dL 1.80-2.40 N COMPREHENSIVE METABOLIC [id number] 14:13:00* Test Item Value Reference Range Interpretation Comme [facility] SODIUM (test code = NA) 138 mEq/L 134-147 N POTASSIUM (test code = K) 4.0 mEq/L 3.4-5.0 CHLORIDE (test code = CL) 106 mEq/L 100-108 N CARBON DIOXIDE (test code = CO2) 24 mEq/l 21-33 ANION GAP (test code = GAP) 12 0-20 N GLUCOSE (test code = GLU) 107 mg/dL 70-110 BLOOD UREA NITROGEN (test code = BUN) 33 mg/dL 7-18 H GLOMERULAR FILTRATION RATE (test code = GFR) 56.5 80-90 L The Glomerular Filtration Rate is a calculated parameterbased on serum Creatinine, patient age and sex. GFR valuesless than 60 mL/min/1.73 square meters are indicative ofChronic Kidney Disease. Values less than 15 mL/min/1.73square meters indicate Kidney failure. The calculation forGFR is based on the CKD-EPI (2020) calculation. This formulais race indifferent and is the recommended formula for GFRby the National Kidney Foundation for Adults.The GFR will not calculate if the sex is unknown or if thepatient's age is <18 years. CREATININE (test code = CREAT) 1.4 mg/dL 0.6-1.3 H TOTAL PROTEIN (test code = PROT) 5.8 g/dL 6.4-8.2 L ALBUMIN (test code = ALB) 2.60 g/dL 3.4-5.0 L CALCIUM (test code = CA) 8.0 mg/dL 8.0-10.5 BILIRUBIN TOTAL (test code = BILT) 0.70 mg/dL 0.0-1.0 N SGOT/AST (test code = AST) 17 IUnit/L 15-37 N SGPT/ALT (test code = ALT) 21 IUnit/L 30-65 L ALKALINE PHOSPHATASE TOTAL (test code = ALKP) 62 IUnit/L 20-125 N GLUCOSE [id number] 12:54:00* Test Item Value Reference Range Interpretation Comme nts GLUCOSE BEDSIDE (test code = GLUBED) 102 MG/DL 70-110 N Performed by cer tified tugger operator at [facility] GLUCOSE [id number] 10:14:00* Test Item Value Reference Range Interpretation Comme nts GLUCOSE BEDSIDE (test code = GLUBED) 110 MG/DL 70-110 N Performed by Domee tugger operator at [facility] CBC W/AUTO [id number] 05:58:00* Test Item Value Reference Range Interpretation Comme nts WHITE BLOOD CELL (test code = WBC) 11.0 x10 3/uL 4.5-11.0 N RED BLOOD CELL (test code = RBC) 3.74 x10 6/uL 4.00-5.60 L HEMOGLOBIN (test code = HGB) 10.9 g/dL 12.5-16.9 L HEMATOCRIT (test code = HCT) 31.7 % 37.5-50.7 L MEAN CELL VOLUME (test code = MCV) 84.8 fL 81.0-99.0 N MEAN CELL HGB (test code = MCH) 29.1 pg 27.0-33.0 N MEAN CELL HGB CONCETRATION (test code = MCHC) 34.4 g/dL 33.0-37.0 N RED CELL DISTRIBUTION WIDTH CV (test code = RDW) 14.1 % 11.5-14.5 N PLATELET COUNT (test code = PLT) 207 x10 3/uL 150-400 N NEUTROPHIL % (test code = NT%) 81.5 % 56.0-77.0 H LYMPHOCYTE % (test code = LY%) 3.8 % 14.0-32.0 L NEUTROPHIL # (test code = NT#) 8.96 x10 3/uL 2.0-7.6 H LYMPHOCYTE # (test code = LY#) 0.42 x10 3/uL 1.0-3.8 L MANUAL DIFF REQUIRED (test c ode = MDIFF) NO RED CELL DISTRIBUTION WIDTH SD (test code = RDW-SD) 43.7 fL 37.0-54.0 N MEAN PLATELET VOLUME (test c ode = MPV) 9.8 fL 7.0-9.0 H IMMATURE GRANULOCYTE % (test code = IG%) 0.5 % 0.0-2.0 N MONOCYTE % (test code = MO%) 13.6 % 4.8-9.0 H EOSINOPHIL % (test code = EO%) 0.4 % 0.3-3.7 N BASOPHIL % (test code = BA%) 0.2 % 0.0-2.0 N NUCLEATED RBC % (test code = NRBC%) 0.0 % 0-0 N IMMATURE GRANULOCYTE # (test code = IG#) 0.05 x10 3/uL 0.00-0.03 H MONOCYTE # (test code = MO#) 1.49 x10 3/uL 0.1-0.8 H EOSINOPHIL # (test code = EO#) 0.04 x10 3/uL 0.0-0.2 N BASOPHIL # (test code = BA#) 0.02 x10 3/uL 0.0-0.2 N NUCLEATED RBC # (test code = NRBC#) 0.00 x10 3/uL 0.0-0.1 N Notes Date/Time Note Provider Source 2023-02-14 02:12:00 [id number] VK0aht/jvzl9o8es1pb0rNnGXFjH3 +lg3BBSXyHO7TP/kGuKD2vpPW/l3498-85-53K21:12:00 [facility] ([facility])Discharge SummaryREPORT#:[id number] REPORT STATUS: SignedREPORT INITIALIZATION DATE:02/14/23 TIME: 211 PATIENT: MATHEW CASTILLO UNIT #: [id number]#: [id number] ROOM/BED: 5507-1DOB: [birth year] AGE: 62 SEX: M ATTEND: Salinas Alba I MDADM AUTHOR: Salinas Alba I MDREPT SERVICE DT/TIME: 02/14/23211* ALL edits or amendments must be made on the electronic/computer document * PCP PCPPCP:PCP: Lakhwinder Guillermo MD Discharge to: home General InformationDate of admission:Observation Start Date: Date of admission: 01/21/23 Discharge date: 01/22/23Admission diagnosis:1. Acute kidney injury2. Obstructive uropathy3. Leukocytosis4. BPH status post UroLift5. HX OF BPH, Hypertension, SchizophreniaDischarge diagnosis:N13.30 UNSPECIFIED HYDRONEPHROSIS J98.11 ATELECTASIS N17.9 ACUTE KIDNEY FAILURE, XUCGQDQMHWDN65.8 OTHER RETENTION OF URINE D72.829 ELEVATED WHITE BLOOD CELL COUNT, UNSPECIFIED E83.39 OTHER DISORDERS OF PHOSPHORUS METABOLISM F20.9 SCHIZOPHRENIA, UNSPECIFIED E83.42 HYPOMAGNESEMIA I10 ESSENTIAL (PRIMARY) HYPERTENSION 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 N40.1 BENIGN PROSTATIC HYPERPLASIA WITH LOWER URINARY TRACT SYMP Hospital course:62-year-old male with last medical history of, BPH-s/p UroLift 01/03/2023, schizophrenia was transferred from [facility] with acute kidney injury and urinary [...] further evaluation and treatment. Urology consult was placed.Urology had seen the patient. For follow-up as outpatient on 01/30 and for nurse visit catheter removal and CIC teaching.The patient was hemodynamically stable and was discharged to home, follow-up with PCP. Discharge medications as [...] (Auto) (14.0 - 32.0 %) 7.1 L Glascock % (Auto) (4.8 - 9.0 %) 8.1 Eos % (Auto) (0.3 - 3.7 %) 0.4 Baso % (Auto) (0.0 - 2.0 %) 0.1 Neut # (Auto) (2.0 - 7.6 x10 3/uL) 9.37 H Lymph # (Auto) (1.0 - 3.8 x10 3/uL) 0.79 L Glascock # (Auto) (0.1 - 0.8 x10 3/uL) [...] x10 3/uL) 0.[address] ABD PELVIS W/CONT [id number] EXAM: CT abdomen and pelvis with contrast [...] to moderate atherosclerotic calcification, without abdominal aortic aneurysm. Pelvic organs/bladder: Moderate to [...] Care Discharge InstructionsAdditional Discharge Routines: PCP Follow-Up, Building Code Administrator Follow-Up)( Diet: Regular Follow-up AppointmentsPCP follow up: PCP: Lakhwinder Guillermo MD PCP follow up timeframe: In 5 daysAttending Physician: Attending Physician: Salinas Alba MD Attending physician follow up timeframe: In 1-2 weeksConsulting provider 1: Provider 1: Dave Jones MD Specialty: Urology Consult follow up timeframe: In 1-[address] [place] [address] #:[phone] OF REPORTDSDischarge ynaijnb8679-27-57V57:12:00G.YBZX49145738-9204IMXs ailable for patient zllfCDQPKEDWNWYTMJ9931-63-81D90:16:15 [facility] 2023-02-04 04:06:00 [id number] 6gXmw8xhj0CQLHxojLO2ceda00E76 TWjX+D/PiyLDuvEmwF3K96+lX0W6261-18-15J48:06:00 [facility] ([facility]Discharge SummaryREPORT#:[id number] REPORT STATUS: SignedREPORT INITIALIZATION DATE:02/04/23 TIME: 0406 PATIENT: MATHEW CASTILLO SINCERE UNIT #: [id number]#: [id number] [facility] AGE: 62 SEX: M ATTEND: Salinas Alba I MDADM AUTHOR: Salinas Alba I MDREPT SERVICE DT/TIME: 02/04/23 0406* ALL edits or amendments must be made on the electronic/computer document * PCP PCPPCP:PCP: Lakhwinder Guillermo MD Discharge to: home General InformationDate of admission:Observation Start Date: 01/05/23Date of admission: 01/06/23 Discharge date: 01/11/23Admission diagnosis:1. Hematuria s/p bladder lift2. Leukocytosis3. sepsis/UTI LAB REPORTS ANAEROBIC BOTTLE: GRAM POSITIVE COCCI IN PAIRS AND CHAINS, aerobic bottle pending.4. Cholelithiasis and mildly distended gallbladder.5. HX OF BPH, Hypertension, SchizophreniaDischarge diagnosis:N39.0 URINARY TRACT INFECTION, SITE NOT SPECIFIED R78.81 BACTEREMIA R31.0 GROSS HEMATURIA B95.2 ENTEROCOCCUS THE CAUSE OF DISEASES CLASSIFIED ELSEWHERE F17.200 NICOTINE DEPENDENCE, UNSPECIFIED, UNCOMPLICATED F20.9 SCHIZOPHRENIA, UNSPECIFIED I10 ESSENTIAL (PRIMARY) HYPERTENSION 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 K80.20 CALCULUS OF GALLBLADDER W/O CHOLECYSTITIS W/O OBSTRUCTION K82.8 OTHER SPECIFIED DISEASES OF GALLBLADDER N40.1 BENIGN PROSTATIC HYPERPLASIA WITH LOWER URINARY TRACT SYMP Hospital course:62-year-old male with last medical history of, BPH, s/p bladder lift yesterday by Dr. Jones transferred from [place] for urology evaluation secondary tohematuria after bladder irrigation failed. Patient was seen and evaluated by Dr. 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 [facility].Abnormal labs: WBC 16.7, lctic acid-2.9, ua with trace leukocyte estrace and wbc>50CT abd/pelvis:1. Prostatomegaly. Decompressed bladder with a Black in place.2. No hydronephrosis. No enhancing renal masses.3. Cholelithiasis and mildly distended gallbladder.4. Moderate hiatal hernia.Patient was admitted for further evaluation and treatment. Urology consult was placed.10/02 Vital signs within normal limits.Hematuria was improved.01/07 Uro continued to follow the patient. Stopped CBI, cleared for discharge with Black.01/08 Discharge planning: [...] Start taking the following new medications:CEPHALEXIN (KEFLEX) 500 MG CAP 500 MILLIGRAM ORAL EVERY 6 HOURS. Days = 7 Qty = 28 No Refills CIPROFLOXACIN (CIPROFLOXACIN) 500 MG TAB 500 MILLIGRAM ORAL TWICE DAILY. Qty = 14 No Refills ObjectiveVS/I OLast Documented: Result Date Time Pulse Ox 100 01/11 1631 B/P 135/84 01/11 1631 B/P Mean 100.8 01/11 163 O2 Delivery Room air 01/11 1631 Temp 36.5 01/11 1631 Pulse 74 01/11 163 Resp 14 01/11 1631 PATIENT WEIGHT: Weight [...] bowel sounds, RLQ normal bowel sounds, RUQ normal bowel soundsGenitourinary: urinary catheter, hematuriaExtremities: moves all, no edema-all extremities, normal capillary refill, normal range of motion, normal sensory, normal motor functionNeuro/AGRICULTURAL AIRCRAFT PILOT: alert, oriented X 3Skin: dry, intact, no gross abnormalitiesPsychiatry: no hallucinations, normal affect, normal judgment/insight, normal mood, not homicidal, not suicidal Treatments ProceduresLab:Laboratory Tests 01/09 549 Chemistry Sodium (134 - 147 mEq/L) 139 Potassium (3.4 - 5.0 mEq/L) 4.2 Chloride (100 - 108 mEq/L) 105 Carbon Dioxide (21 - 33 mEq/l) 27 Anion Gap (0 - 20) 11 BUN (7 - 25 mg/dL) 12 Creatinine (0.6 - 1.3 mg/dL) [...] % (Auto) (14.0 - 32.0 %) 20.8 Glascock % (Auto) (4.8 - 9.0 %) 7.7 Eos % (Auto) (0.3 - 3.7 %) 8.1 H Baso % (Auto) (0.0 - 2.0 %) 0.7 Neut # (Auto) (2.0 - 7.6 x10 3/uL) 4.51 Lymph # (Auto) (1.0 - 3.8 x10 3/uL) 1.51 Glascock # (Auto) (0.1 - 0.8 x10 3/uL) [...] x10 3/uL) 0.[address] ABD PELVIS W/CONT 63703 H 20 TIME OF STUDY: 01/04/2023 7:55 [...] distended gallbladder. 4. Moderate hiatal hernia. Discharge Instructions PCPPCP:PCP: Lakhwinder Guillermo MD )( Discharge to: Home/Self Care Discharge InstructionsAdditional Discharge Routines: PCP Follow-Up, Building Code Administrator Follow-Up)( Diet: Cardiac Follow-up AppointmentsPCP follow up: PCP: Lakhwinder Guillermo MD PCP follow up timeframe: In 5 days Special instructions:CALL TO MAKE APPOINTMENTConsulting provider 1: Provider 1: Dave Jones MD Specialty: Urology Special instructions:CALL TO SCHEDULE APPOINTMENT at [address] [facility] #:[phone] OF REPORTDSDischarge teqrxwi7112-71-25W47:06:00G.PGAI70302884-5834VCVu ailable for patient edrxMRHWQFQLGCIDPI3621-60-47E83:36:15 [facility] 2023-01-27 18:31:00 [id number] c4pDWc/QKUjerh/ixSsmg9OdsIHD4 TkAKcGGg1e5NN37H4gy79BkekPO6180-50-31X83:31:74398 3-[address]30 [place] [address] PATIENT NAME: MATHEW CASTILLO ADMIT DATE: 01/06/23ACCOUNT NO: [id number] ROOM NO: [facility] AGE: 62 REPORT TYPE: 360 - QUERY RESPONSE DOCUMENT SEX: M ADMITTING PHYSICIAN:Salinas Alba MD ATTENDING PHYSICIAN:Salinas Alba MD Provider Query QUERY TEXT: Condition General 360MD Query related questions should be directed to: [facility] Coding Query Helpline [Based on the below mentioned clinical indicators kindly clarify the condition being treated and evaluated (uti due to black catheter, uti not due to black catheter,uti due to urolift surgery , or other more appropriate diagnosis)?.] The patient's Clinical Indicators include:62 yo male with HTN, BPH, chronic indwelling black cath, s/p bladder liftyesterday per Dr. Jones presents with gross hematuria associated with n/v. : ed physician record 01/04/2023sepsis/UTI LAB REPORTS ANAEROBIC BOTTLE: GRAM POSITIVE COCCI IN PAIRS ANDCHAINS, aerobic bottle pending.: H and P 01/05/2023Status post UroLift surgery on January 03, [address] Reinaldo Jones : Infectious dis progress note 01/08/2023 Options provided:-- Respond - Create new note now-- Dismiss - Not applicable / Not valid-- Dismiss - Clinically unable to determine / Unknown-- Assign to another provider QUERY RESPONSE: uti-black Query created by: MADY PEREZ on 01/22/2023 2:50 AM at 1831 PATIENT NAME: MATHEW CASTILLO noteG.[id number] for patient baknWRUZNEIOHMCVTB6400-30-93Y23:31:38 [facility] 2023-01-27 13:09:00 [id number] fqFWbug+aseyPppzw/T9AqjzC+/8Y tER/sogaSLe2hw++TjkM6r5UvNl6012-62-68U70:09:28123 3-0114 [place] [address] PATIENT NAME: MATHEW CASTILLO ADMIT DATE: 01/06/23ACCOUNT NO: [id number] ROOM NO: G.C146 AGE: 62 REPORT TYPE: 360 - QUERY RESPONSE DOCUMENT SEX: M ADMITTING PHYSICIAN:Salinas Alba MD ATTENDING PHYSICIAN:Salinas Alba MD Provider Query QUERY TEXT: Condition General 360MD Query related questions should be directed to: [facility] Coding Query Helpline [Based on your medical judgement and the clinical indicators listed below kindly specify the underlying cause of the patient's heamaturia(Hematuria due to bladder lift surgery, hematuria due to UTI, hematuria unspecified, or other more appropriate diagnosis)?.] The patient's Clinical Indicators include:62-year-old male with last medical history of, BPH, s/p bladder lift yesterdayby Dr. Jones transferred from [place] for urology evaluation secondary tohematuria after bladder irrigation failedHematuria s/p bladder liftLeukocytosis : H and P 01/05/2023sepsis/UTI LAB REPORTS ANAEROBIC BOTTLE: GRAM POSITIVE COCCI IN PAIRS ANDCHAINS, aerobic bottle pending : H and P 01/05/2023 Options provided:-- Respond - Create new note now-- Dismiss - Not applicable / Not valid-- Dismiss - Clinically unable to determine / Unknown-- Assign to another provider QUERY RESPONSE: Hematuria due to bladder lift surgery Query created by: MADY PEREZ on 01/22/2023 2:55 AM at 1309 PATIENT NAME: MATHEW CASTILLO noteG.[id number] for patient nyduJYZFKSMRSMAXZR8286-06-17V54:10:17 [facility] 2023-01-27 13:09:00 [id number] VRRNvyO6CvV5oU9CARkzRsu6xgc4m HSOlN2jmzgGCzV8RYe/9ssAUXjm9552-01-89V12:09:93707 3-0115 [place] [address] PATIENT NAME: MATHEW CASTILLO ADMIT DATE: 01/06/23ACCOUNT NO: [id number] ROOM NO: G.C146 AGE: 62 REPORT TYPE: 360 - QUERY RESPONSE DOCUMENT SEX: M ADMITTING PHYSICIAN:Salinas Alba MD ATTENDING PHYSICIAN:Salinas Alba MD Provider Query QUERY TEXT: Condition General 360MD Query related questions should be directed to: [facility] Coding Query Helpline [Based on your clinical judgement, can you please clarify if Sepsis was confirmed, Sepsis not confirmed, or other more appropriate diagnosis?.] The patient's Clinical Indicators include:sepsis/UTI LAB REPORTS ANAEROBIC BOTTLE: GRAM POSITIVE COCCI IN PAIRS ANDCHAINS, aerobic bottle pending.: H and P 3Pulse Ox 99 01/04 1926B/P 128/82 01/04 1926B/P Mean 97 01/04 1926O2 Delivery Room air 01/04 1926Temp 37.4 01/04 192Pulse 102 01/04 1926Resp 16 01/04 1926Leukocytosis, UTI (urinary tract infection)WBC (4.5 - 11.0 x10 3/uL) 16.7 H : Ed physician record 01/04/2023His urine culture has shown growth of Pseudomonas aeruginosa and 1out of 2 blood culture has shown growth of Enterococcus faecalis.TheEnterococcus faecalis growing in 1 blood culture, likely could be eithercontaminant or field service representative of transient bacteremia: progress note 01/11/2023 Options provided:-- Respond - Create new note now-- Dismiss - Not applicable / Not valid-- Dismiss - Clinically unable to determine / Unknown-- Assign to another provider QUERY RESPONSE: sepsis was not confirmed, patient had localized infection Query created by: MADY PEREZ on 01/22/2023 3:09 AM at 1309 PATIENT NAME: MATHEW CASTILLO noteG.[id number] for patient swrgEVPFJNVOBQNWKK9129-81-85O06:10:27 [facility] 2023-01-22 17:40:00 [id number] kYF0EaBM2PabonMJyX0OnO8IKWNcu aG0lozDwlvbleFxwkGXjYZsipbk2314-63-55E99:40:00 [facility] ([facility])Internal Medicine Prog. NoteREPORT#:[id number] REPORT STATUS: SignedREPORT INITIALIZATION DATE:01/22/23 TIME: 1740 PATIENT: MATHEW CASTILLO UNIT #: [id number]#: [id number] [place] [facility] [place] [birth year] AGE: 62 SEX: M ATTEND: Salinas Alba I MDADM AUTHOR: Sofia Cheng NPREPT SERVICE DT/TIME: 01/22/23 1740* ALL edits or amendments must be made on the electronic/computer document * Objective GeneralVS/I O:Vital SignsDate Temp Pulse Resp B/P B/P Mean Pulse Ox VfE560/17-01/22 36.6-37.0 78-88 14-20 109-137/64-82 80.9-100.0 95-98 Last Documented: Result Date Time Pulse Ox 98 01/22 1610 B/P 114/64 01/22 1610 B/P Mean 80.9 01/22 1610 Temp 36.9 01/22 1610 Pulse 78 01/22 1610 Resp 16 01/22 1610 O2 Delivery Room air 01/21 0516 24 hour I O ending at 0700: 01/22 0700 01/21 1900 Intake Total Output Total 2100 Balance -2100 Output, Urine 2100 PATIENT WEIGHT: Weight [...] Sodium Chloride (SODIUM CHLORIDE 0.9%) 1,000 ML .[id number] IV Haloperidol (HALDOL) 10 MG BID PO Tamsulosin HCl (Flomax 0.4 mg) 0.4 MG BID PO Acetaminophen (TYLENOL) 650 MG Q4H PRN PRN PO (DC) Ondansetron HCl (ZOFRAN) 4 MG Q6H PRN PRN IV (DC) Sodium Chloride (SODIUM CHLORIDE 0.9%) 1,000 ML .Q10H IV (DC) ResultsFindings/Data:Laboratory Tests 01/22/23623:[Embedded Image Not Available]Laboratory Tests 01/23 624 Chemistry Sodium (134 - 147 mEq/L) 137 Potassium (3.4 - 5.0 mEq/L) 4.1 Chloride (100 - 108 mEq/L) 104 Carbon Dioxide (21 - 33 mEq/l) 25 Anion Gap (0 - 20) 12 BUN (7 - 25 mg/dL) 24 Creatinine (0.6 - 1.3 mg/dL) 1.1 Glomerular Filtr Rate (80 - 90) 75.4 L Glucose (77 - 141 mg/dL) 102 Calcium (8.0 - 10.5 mg/dL) 7.4 L Phosphorus (2.5 - 4.9 MG/DL) 2.4 L Magnesium (1.6 - 2.6 mg/dL) 1.69 Laboratory Tests 01/23 624 Hematology WBC (4.5 - 11.0 x10 3/uL) 9.9 RBC (4.00 - 5.60 x10 6/uL) 3.36 L Hgb (12.5 - 16.9 g/dL) 9.6 L Hct (37.5 - 50.7 %) 29.1 L MCV (81.0 - 99.0 fL) 86.6 MCH (27.0 - 33.0 pg) 28.6 MCHC (33.0 - 37.0 g/dL) 33.0 RDW (11.5 - 14.5 %) 13.9 Plt Count (150 - 400 x10 3/uL) 403 H MPV (7.0 - 9.0 fL) 9.3 H Neut % (Auto) (56.0 - 77.0 %) 74.6 Lymph % (Auto) (14.0 - 32.0 %) 9.8 L Glascock % (Auto) (4.8 - 9.0 %) 9.0 Eos % (Auto) (0.3 - 3.7 %) 5.7 H Baso % (Auto) (0.0 - 2.0 %) 0.4 Neut # (Auto) (2.0 - 7.6 x10 3/uL) 7.35 Lymph # (Auto) (1.0 - 3.8 x10 3/uL) 0.97 L Glascock # (Auto) (0.1 - 0.8 x10 3/uL) [...] Moderate bilateral hydroureteronephrosis at the level of thebladder. There is moderate to marked prostatomegaly. These findingscould be on the basis of chronic [...] of the following dose reduction techniques were used:Automated exposure control, adjustment of the mA and/or kV accordingto patient size, and/or utilization of iterative reconstructiontechnique.DLP: 264 mGy-cm CTDI: 212 mGy Impression By: Gurdeep Berumen M.D. Diagnosis, Assessment Plan Free Text DxA P NotesFree text DxA P notes:discharged see discharge summery at 2132 RPT #:[id number] OF REPORTPRProgress uyoi9547-17-60B63:40:00G.VPUJ02153271-2787OXZrfyw able for patient dikyRXZTZKYEFTMVVI1144-32-26N62:33:02 [facility] 2023-01-22 12:19:00 [id number] MJ/G0nqgEhWEDvpOjuvHtBmlw6S// EVo8x9zQt+EiQOkhkOq+AiB64tj7481-14-54G50:19:00 [facility] ([facility])Nephrology Consultation NoteREPORT#:[id number] REPORT STATUS: SignedREPORT INITIALIZATION DATE:01/22/23 TIME: 1218 PATIENT: MATHEW CASTILLO UNIT #: [id number]#: [id number] RO[address]DOB: [birth year] AGE: 62 SEX: M ATTEND: Salinas Alba I MDA AUTHOR: Carmen KempPT SERVICE DT/TIME: 01/22/23 1219* ALL edits or amendments must be made on the electronic/computer document * History of Present IllnessRequesting clinician: Salinas Deshpande/Elham Black for consult:Jax complaint:Urinary RetentionPCP:PCP: Lakhwinder Guillermo MD HPI: is a pleasant 62 years old male who is well known to us from previous hospitalization. His PMH is significant for schizophrenia, HTN, BPH, current everyday smoker. The patient has h/o urinary retention and CHANDRA 2/2 obstructive uropathy. He had black placed in [...] thepatient given empirc abx and transferred to [facility] yesterday for furtherevaluation and management. Initial VS at the ER showed a temperature of 36.8c, pulse 94/min, respiration 16/min, BP 157/69 mm Hg and SpO2 97%. Laboratory data showed mild leukocytosis w/ WBC of 11.2, azotemia w/ BUN 54, Cr 2.6. Nephrology is consulted for the management of CHANDRA. The patient seen and examined. He is AAOX3, resting in bed, breathing comfortably on RA. Urinary catheter to gravity w/ good UOP, states abdominal [...] 0900 AC 01/22 (COGENTIN) PO 04/22 0859 0912 Tamsulosin HCl 0.4 MG BID 01/21 2100 AC 01/22 (Flomax 0.4 mg) PO 04/21 2058 09 Cardiovascular Drugs Sig/Mark Start time Last Medication Dose Route Stop Time Status Admin Hydralazine HCl 10 MG Q6H PRN PRN 01/21 233 AC (APRESOLINE) IV 04/21 2328 Central Nervous System Agents Sig/Mark Start time Last Medication Dose Route Stop Time Status Admin Acetaminophen 650 MG Q4H PRN PRN 01/21 2330 AC (TYLENOL) PO 04/21 2328 Hydrocodone Bitart/ 1 TAB Q6H PRN PRN 01/21 233 AC Acetaminophen PO 01/26 2329 (NORCO 7.5/325 TABLET) Haloperidol 10 MG BID 01/21 2100 AC 01/22 (HALDOL) PO 04/21 2058 0912 Acetaminophen 650 MG Q4H PRN PRN 01/21 0645 DC (TYLENOL) PO 01/22 0533 Diagnostic Agents Sig/Mark Start time Last Medication Dose Route Stop Time Status Admin Iopamidol 100 ML .STK-MED ONE 01/22 1234 DC 01/22 (ISOVUE-300 100ML) IV 01/22 1235 1234 Electrolytic, Caloric, And Scott Sig/Mark Start time Last Medication Dose Route Stop Time Status Admin Sodium Chloride 1,000 ML .[id number] 01/21 2330 AC 01/22 (SODIUM CHLORIDE IV 04/21 2329 1359 0.9%) Sodium Chloride 1,000 ML .Q10H 01/21 0645 DC 01/21 (SODIUM CHLORIDE IV 01/22 0533 1651 0.9%) Gastrointestinal Drugs Sig/Mark Start time Last Medication Dose Route Stop Time Status Admin Docusate Sodium 100 MG BID PRN PRN 01/21 2330 AC (COLACE) PO 04/21 2329 Ondansetron HCl 4 MG Q4H PRN PRN 01/21 2330 AC (ZOFRAN) IV 04/21 2329 Ondansetron HCl 4 MG Q6H PRN PRN 01/21 0645 DC (ZOFRAN) IV 01/22 0533 Allergies:Coded Allergies:No Known Allergies (10/16/22) Review of SystemsAdditional notes:A 12 point ROS is obtained [...] 14 119/69 85.9 97 01/21 2352 36.8 88 14 137/82 100.0 96 01/21 1953 37.0 87 14 120/74 89.5 98 24 hour I O ending at 0700: 01/22 0700 01/21 1900 Intake Total Output Total 2100 Balance -2100 Output, Urine 2100 PATIENT WEIGHT: Weight [...] Sodium Chloride (SODIUM CHLORIDE 0.9%) 1,000 ML .[id number] IV Haloperidol (HALDOL) 10 MG BID PO Tamsulosin HCl (Flomax 0.4 mg) 0.4 MG BID PO Acetaminophen (TYLENOL) 650 MG Q4H PRN PRN PO (DC) Ondansetron HCl (ZOFRAN) 4 MG Q6H PRN PRN IV (DC) Sodium Chloride (SODIUM CHLORIDE 0.9%) 1,000 ML .Q10H IV (DC) Physical ExamGeneral appearance: alert, awake, oriented, no acute distressHead/eyes: atraumatic, clear cornea, normal conjunctiva/sclera, normocephalicENT: normal noseNeck: supple/no meningismusCardiovascular: normal heart soundsRespiratory: aerating well, clear to auscultation, no distressAbdomen: non-tender, soft, no reboundGenitourinary: urinary catheter, urineExtremities: no edema ResultsFindings/Data:Laboratory Tests 01/22 0624 Chemistry Sodium (134 - 147 mEq/L) 137 Potassium (3.4 - 5.0 mEq/L) 4.1 Chloride (100 - 108 mEq/L) 104 Carbon Dioxide (21 - 33 mEq/l) 25 Anion Gap (0 - 20) 12 BUN (7 - 25 mg/dL) 24 Creatinine (0.6 - 1.3 mg/dL) 1.1 Glomerular Filtr Rate (80 - 90) 75.4 L Glucose (77 - 141 mg/dL) 102 Calcium (8.0 - 10.5 mg/dL) 7.4 L Phosphorus (2.5 - 4.9 MG/DL) 2.4 L Magnesium (1.6 - 2.6 mg/dL) 1.69 Laboratory Tests 01/22 0624 Hematology WBC (4.5 - 11.0 x10 3/uL) 9.9 RBC (4.00 - 5.60 x10 6/uL) 3.36 L Hgb (12.5 - 16.9 g/dL) 9.6 L Hct (37.5 - 50.7 %) 29.1 L MCV (81.0 - 99.0 fL) 86.6 MCH (27.0 - 33.0 pg) 28.6 MCHC (33.0 - 37.0 g/dL) 33.0 RDW (11.5 - 14.5 %) 13.9 Plt Count (150 - 400 x10 3/uL) 403 H MPV (7.0 - 9.0 fL) 9.3 H Neut % (Auto) (56.0 - 77.0 %) 74.6 Lymph % (Auto) (14.0 - 32.0 %) 9.8 L Glascock % (Auto) (4.8 - 9.0 %) 9.0 Eos % (Auto) (0.3 - 3.7 %) 5.7 H Baso % (Auto) (0.0 - 2.0 %) 0.4 Neut # (Auto) (2.0 - 7.6 x10 3/uL) 7.35 Lymph # (Auto) (1.0 - 3.8 x10 3/uL) 0.97 L Glascock # (Auto) (0.1 - 0.8 x10 3/uL) [...] Moderate bilateral hydroureteronephrosis at the level of thebladder. There is moderate to marked prostatomegaly. These findingscould be on the basis of chronic [...] of the following dose reduction techniques were used:Automated exposure control, adjustment of the mA and/or kV accordingto patient size, and/or utilization of iterative reconstructiontechnique.DLP: 264 mGy-cm CTDI: 212 mGy Impression By: KemBCRaudel - John Berumen M.D. Diagnosis, Assessment Plan [...] bladder. Additional findings include a small right pleural [...] with the patient, patient's nurse, and . at 1923 at 1933 RPT #:[id number] OF REPORTWYGvdngtbgvsug9685-04-08T97:19:00G.PDOC2 [id number] for patient uvcgWWCLBLACZIITWL0851-61-50Q04:23:39 [facility] 2023-01-21 19:40:00 [id number] GFFA+AFHimxdUAKSHanlivZ9+XbyB H4mZLvoJcUVv74yML2AEeqkf9Jo2993-46-77G50:40:00 [facility])Urology Consult NoteREPORT#:[id number] REPORT STATUS: SignedREPORT INITIALIZATION DATE:01/21/23 TIME: 1939 PATIENT: MATHEW CASTILLO UNIT #: [id number]#: [id number] [address] [birth year] AGE: 62 SEX: M ATTEND: Salinas Alba I MDADM AUTHOR: Crystal Alberts MDREPT SERVICE DT/TIME: 01/21/231939* ALL edits or amendments must be made on the electronic/computer document * History of Present Illness HPIRequesting clinician: Dr. Fernanda Gary for consult:Urinary retention Chief complaint:urinary retention HPI:Mathew Castillo is a 2-year-old male with hypertension, schizophrenia, BPH with urinary retention who follows with Dr. Jones and is s/p UroLift 01/03/2023. Patient had readmission earlier this month for hematuria after UroLift however this resolved with conservative measures. He was discharged and then had recent voiding trial 01/14/23 in clinic however send have urinary retention at outside hospital and was transferred to [place] with acute renal failure and urinary retention. Outside labs showed creatinine of 5.6, GFR 11. They were able to place a catheter at the outside hospital and his creatinine currently is 2.6 GFR 27. Patient feels overall well he has a [address] that is patent and draining [...] Documented: Result Date Time Pulse Ox 98 01/21 162 B/P 117/73 01/21 162 B/P Mean 87.3 01/22 1628 Temp 98.2 01/21 162 Pulse 82 01/21 1628 Resp 16 01/21 162 O2 Delivery Room air 01/21 05 24 hour I O ending at 0700: [...] (Auto) (14.0 - 32.0 %) 7.1 L Glascock % (Auto) (4.8 - 9.0 %) 8.1 Eos % (Auto) (0.3 - 3.7 %) 0.4 Baso % (Auto) (0.0 - 2.0 %) 0.1 Neut # (Auto) (2.0 - 7.6 x10 3/uL) 9.37 H Lymph # (Auto) (1.0 - 3.8 x10 3/uL) 0.79 L Glascock # (Auto) (0.1 - 0.8 x10 3/uL) [...] in outside hospital and was transferred to [place]. He has indwelling Black placed from the outside hospital that is patent and draining clear urine. Creatinine has down trended to 2.6 from 5.6. -Continue indwelling Black do not remove-Trend creatinine-Discussed patient to follow-up with our clinic 01/30/2023 for nurse visit catheter removal and CIC teaching for which he was amenable to trying Crystal Alberts MD -covering for Dr. Jones [facility] at 1948 RPT #:[id number] OF REPORTYUZnozvavwacza4558-48-05M17:40:00G.PDOC2 [id number] for patient vcbyPZWAHMYVSIAUID6930-10-69H38:48:32 [facility] 2023-01-21 10:48:00 [id number] vzE8uc+CYW7l5IMaly8b0r3OOC365 XzfYHpWloG5H9pNaU+3AuPyNk3s6461-12-39Q26:48:00 [facility] ([facility])History Physical - AdultREPORT#:[id number] REPORT STATUS: SignedREPORT INITIALIZATION DATE:01/21/23 TIME: 1048 PATIENT: MATHEW CASTILLO SINCERE UNIT #: [id number]#: [id number] ROOM/BED: 5507-1DOB: [birth year] AGE: 62 SEX: M ATTEND: Salinas Alba I [facility] AUTHOR: Sofia Cheng NPREPT SERVICE DT/TIME: 01/21/23 1048* ALL edits or amendments must be made on the electronic/computer document * History of Present Illness HPIChief complaint:Acute kidney injuryUrinary retentionHPI: 62-year-old male with last medical history of, BPH-s/p UroLift 01/03/2023, schizophrenia was transferred from [facility] ER with acute kidney injury [...] after theFoley catheter was inserted.Admission vital signs:Blood pressure 157/69, pulse 94, respirations 16, temperature 36.8, [...] vomiting. :Reports: urinary retention. Denies: flank pain, frequency, hematuria. Musculoskeletal: Arthritis: Denies: left upper, [...] 0523 157/69 98 01/21 0516 36.8 94 16 97 Room air 24 hour I O ending at 0700: 01/21 0700 01/20 1900 Intake Total Output Total Balance Patient 70.909 kg Weight Weight Stated/Reported Measurement Method PATIENT WEIGHT: Weight (lb): Weight (oz): Weight (kg): 70.909 General appearance: alert, awakeHead/Eyes: atraumatic, clear cornea, EOMI, normocephalic, normal conjunctiva/sclera, normal eyelids/periorb, PERRLACardiovascular: regular rate rhythmRespiratory: clear to auscultation, no distress, no tendernessAbdomen/GI: active bowel sounds, soft Abdomen quadrants:LLQ normal bowel sounds, LLQ tenderness, LUQ normal bowel sounds, RLQ normal bowel sounds, RLQ tenderness, RUQ normal bowel soundsGenitourinary: urinary catheterExtremities: moves all, no edema-all extremities, normal capillary refill, normal range of motion, normal sensory, normal motor functionNeuro/AGRICULTURAL AIRCRAFT PILOT: alert, oriented X 3Skin: dry, intact, no gross abnormalitiesPsychiatry: no hallucinations, normal affect, normal judgment/insight, normal mood, not homicidal, not suicidal ResultsFindings/Data:Laboratory Tests: 01/21 518 Chemistry Sodium (134 [...] (Auto) (14.0 - 32.0 %) 7.1 L Glascock % (Auto) (4.8 - 9.0 %) 8.1 Eos % (Auto) (0.3 - 3.7 %) 0.4 Baso % (Auto) (0.0 - 2.0 %) 0.1 Neut # (Auto) (2.0 - 7.6 x10 3/uL) 9.37 H Lymph # (Auto) (1.0 - 3.8 x10 3/uL) 0.79 L Glascock # (Auto) (0.1 - 0.8 x10 3/uL) [...] no JVD, normal thyroid, supple/no meningismusCardiovascular: regular rate rhythmRespiratory: no distress, no tendernessAbdomen/GI: active bowel sounds, soft, non-tender, no guarding, no rebound, no distention, no mass/organomegaly, no pulsatile mass, no hernia, normal abdominalaorta Abdomen quadrants:LLQ normal bowel sounds, LUQ normal bowel sounds, RLQ normal bowel sounds, RUQ normal bowel soundsGenitourinary: urinary catheter with normal color urineExtremities: moves all, no edema-all extremities, normal capillary refill, normal range of motion, normal sensory, normal motor functionNeuro/AGRICULTURAL AIRCRAFT PILOT: alert, oriented X 3Skin: dry, intact, no gross abnormalitiesPsychiatry: Mild anxiety Diagnosis, Assessment Plan Free Text DxA P NotesFree Text DxA P Notes:Assessment:62-year-old male with last medical history of, BPH-s/p UroLift 01/03/2023, schizophrenia was transferred from [facility] ER with acute kidney injury [...] after theFoley catheter was inserted.Admission vital signs:Blood pressure 157/69, pulse 94, respirations 16, temperature 36.8, [...] clinical course at 0300 at 1108 RPT #:[id number] OF REPORTHPHistory and physical ncgsrktbjjb5726-87-62I53:48:00G.[id number] AVAvailable for patient ignsXXRUYTXNVLGHSW7726-17-46J44:00:45 [facility] 2023-01-21 05:27:00 [id number]/Lisa aKAFiE4vZV+/C4pudSVEQF/wjkHzc mmkF51EhHlpAL59EUl2jr5MQe8X3431-95-21K09:27:00 [facility]EMERGENCY PROVIDER REPORTREPORT#:[id number] REPORT STATUS: SignedDATE:01/21/23 TIME: 526 PATIENT: MATHEW CASTILLO UNIT #: [id number]#: [id number] [address]: SEX: M PCP PHYS: Lakhwinder Guillermo MDSERVICE AUTHOR: Elizabeth Davenport APRNNP * ALL edits or amendments must be made on the electronic/computer document * Elizabeth Davenport 01/21/23 0527:HPI-General Illness Free Text HPI NotesFree Text HPI Ntxhz50-pkll-uil male with PMH as listed below presents to the ER as a transfer from [facility] for diagnoses of ARF, urinary retention. Patient presented to the ER for evaluation of abdominal pain and urine retention that started 1 week ago after having his black catheter removed. A 14fr coude catheter was placed. Diagnostic w/u noted WBC of 14, creatinine 5.6, GFR 11, EVR422. Pt was given cefepime 1 g at 00 37, Merrem 500 mg at 01 56 and 1 L normal saline bolus [employer] upon arrival, patient notes improved but not completely resolved lower abdominal pain. He denies any additional symptoms such as recentfever, chest pain, shortness of breath, N/V/D/C, testicular pain or any other symptoms. GeneralInitial Greet Date/Time 01/21/23 0514PCPhackney, uroAMIN, PCP[facility]eraid PresentationChief Complaint __ (urine retention)Hx Obtained From Patient Review of Systems ROS StatementsAll systems rev neg except as marked. Free Text ROS NotesFree Text ROS NotesUrine retention, abdominal pain Past Medical History - AdultStated Complaint URINARY RETENTIONAllergiesCoded Allergies:No Known Allergies (10/16/22) Home MedicationsDiscontinued ScriptsCEPHALEXIN (KEFLEX) 500 MG PO Q6H 7 Days #28 CAPS Prov: 01/11/23 DC: 01/21/23 1111 Changed since prior admitCIPROFLOXACIN 500 MG PO BID CIPROFLOXACIN 500 MG PO BID #14 TABS Prov: 01/11/23 DC: 01/22/23 1357 Discontinued as per MDTAMSULOSIN ER (FLOMAX) 0.4 MG PO BID 6A 6P 30 Days #60 CAP Prov: 10/26/22 DC: 01/21/23 1111 Changed since prior admitDOCUSATE SODIUM (COLACE) 100 MG PO BID PRN PRN CONSTIPATION 30 Days #60 CAP Prov: 10/26/22 DC: 01/21/23 1111 Changed since prior admit Reported MedicationsBENZTROPINE 1 MG PO DAILY HALOPERIDOL [...] Pulse 90 01/21 615 Resp 15 01/21 615 O2 Delivery Room air 01/22 516 Temp 36.8 01/22 516 Review of Vital Signs Reviewed Free Text [...] No palpable masses or pulsatile masses. Negative [place] Sign. [facility] PointGU: Indwelling Black, straw-colored, non-cloudy urine, 600mlExt: no obvious deformity. Neuro: awake and alert, speech NL for age, behavior age-appropriate. Skin: color NL, normal temperature, intact, no visible rashes Interpretation Diagnostics Lab Results InterpretationResultsLaboratory Tests 01/21/23517:[Embedded [...] (Auto) (14.0 - 32.0 %) 7.1 L Glascock % (Auto) (4.8 - 9.0 %) 8.1 Eos % (Auto) (0.3 - 3.7 %) 0.4 Baso % (Auto) (0.0 - 2.0 %) 0.1 Neut # (Auto) (2.0 - 7.6 x10 3/uL) 9.37 H Lymph # (Auto) (1.0 - 3.8 x10 3/uL) 0.79 L Glascock # (Auto) (0.1 - 0.8 x10 3/uL) [...] Pulse 90 01/21 615 Resp 15 01/21 615 O2 Delivery Room air 01/21 05 Temp 36.8 01/22 516 All vital signs available at the time of this entry have been reviewed. Condition Guarded Clinical ImpressionClinical ImpressionPrimary Impression: CHANDRA (acute kidney injury)Secondary Impressions: Obstructive uropathy [facility] Sal[facility] Alba MD [facility] Physician Hospitalist Request Time 0623 Request Date 01/21/23 )( Accepts Hospitalization Yes )( Reason for HospitalizationAKI )( Accepted Time 0624 )( Accepted Date 01/21/23 Call Information will [...] consultation Natalio Coker 01/21/23 0702:HPI-General Illness GeneralConfirmed Patient YesPatient Type New patient PresentationChief Complaint __Hx [...] me, Pulse oximetry normal Time 0616 Re-Evaluation MDM ED CourseMedication(s) OrderedMedication(s) Ordered:Central Nervous System Agents Sig/Mark Start time Last Medication Dose Route Stop Time Status Admin Acetaminophen 650 MG Q4H PRN PRN 01/21 0645 DC PO 01/22 0533 Electrolytic, Caloric, And Scott Sig/Mark Start time Last Medication Dose Route Stop Time Status Admin Sodium Chloride 1,000 ML .Q10H 01/21 0645 DC 01/21 IV 01/22 0533 1651 Gastrointestinal Drugs Sig/Mark Start time Last Medication Dose Route Stop Time Status Admin Ondansetron HCl 4 MG Q6H PRN PRN 01/21 0645 DC IV 01/22 0533 Patient Discharge Departure Vital Signs/ConditionCondition Guarded Supervising Physician Note MidLv/Doc Saw Pt 1I have personally seen the patient and I evaluated the patient along with involvement of the PA/PLASTIC DIE MAKER APPRENTICE. I agree with the PA/social welfare research worker findings and plan. I have performed all aspects of MDM as documented including: evaluation of the patient/patient's condition(s), review and analysis of available data, and determinationof risk of patient management decisions. at 2244 at 1025RPT #:[id number] OF REPORTEDEmergency department tvabxr6298-89-69R29:27:00G.JKXJ63671694-8860FKQal ilable for patient knvrLYTXTJYVVKIFZV6353-83-66L81:46:19 [facility] 2023-01-15 09:31:00 [id number] YeExtgWlzxWqr45IYwMDJ/z3w9sHS 81concmEXL3B0U8SiDK8G453XXY5930-41-75L84:31:70469 1-[address] [address] PATIENT NAME: MATHEW CASTILLO ADMIT DATE: 01/06/23ACCOUNT NO: [id number] ROOM NO: G.C146 AGE: 62 REPORT TYPE: 360 - QUERY RESPONSE DOCUMENT SEX: M ADMITTING PHYSICIAN:Salinas Alba MD ATTENDING PHYSICIAN:Salinas Alba MD Provider Query QUERY TEXT: Clarification Rule In Rule Out 360MD Query related questions should be directed to: [facility] Coding Query Help-line Based on your clinical judgment of the documented diagnosis of Rule out urinary tract infection in the Infectious Dis. Progress Note 01/06/2023, can you clarify if the diagnosis has been [...] AM at 0931 PATIENT NAME: MATHEW CASTILLO noteG.[id number] for patient rknfQDROYVFMGHDCNP6502-38-80C34:31:59 [facility] 2023-01-11 17:08:00 [id number] 9WrdRTo+IV1exjYEOiZojm5uudqyh 2G3gx3hCUrOdUOmVFLxAg9fXm3L2403-12-74N50:08:11843 7-[address] [place] [address] PATIENT NAME: MATHEW CASTILLO ADMIT DATE: 01/06/23ACCOUNT NO: [id number] ROOM NO: [facility] AGE: 62 REPORT TYPE: PROGRESS NOTE SEX: [...] noted. Bowel sounds arenormoactive.EXTREMITIES: The patient has 3-way Black catheter in place and has very fainthematuria at the present time.EXTREMITIES: Both calves are soft. No calf tenderness. No pedal edema.Peripheral pulses are faintly palpable. LABORATORY DATA: No new laboratory studies available to review for today. Blood cultures x2 done on 01/08/2023 are negative so far at 24 hours of incubation. The patient's one out of two blood cultures done on 01/04/2023 had shown growth of Enterococcus faecalis while the other blood culture was negative after 5 days of incubation. ASSESSMENT AND PLAN: The patient with multiple comorbidities was initiallyadmitted through Emergency Room with hematuria. The patient had undergoneUroLift procedure, and subsequently, after he went home, he started to havefrank hematuria and he was admitted through Emergency Room to [facility], and from there, he was transferred to [facility]. The patient PATIENT NAME: MATHEW CASTILLO was evaluated by Urology Service. He was placed on broad-spectrum IVantibiotics. His urine culture has shown growth of Pseudomonas aeruginosa and 1out of 2 blood culture has shown growth of Enterococcus faecalis. TheEnterococcus faecalis growing in 1 blood culture, likely could be eithercontaminant or field service representative of transient bacteremia. Clinically is doingfairly well. His urine culture has shown growth of Pseudomonas aeruginosa. Fornow, we will continue him on the present treatment, and once he is ready to bedischarged home, we will switch him to oral ciprofloxacin. Discussed with thepatient's nursing staff and with MARLENA Cheng. Dictated By: Skip Jaffe MD Date Dictated: 01/11/2023 17:08:17Date Transcribed: 01/11/2023 18:52:55HA/Nicole #: [id number] ID: [id number] Authenticated and Edited by Skip Jaffe MD On 01/22/23 5:19:12 AM at 0520 PATIENT NAME: MATHEW CASTILLO hgbb8753-44-20O23:52:00G.[id number] ble for patient nlnbTNTYTELDWJOIEX2338-55-83F69:21:34 [facility] 2023-01-10 21:43:00 [id number]+AWu rvF1nAn0eis4YM5TCq+PPQmmBxkgp oYlxZVQ2AuiskwR20pfUFpC4ZsY8020-43-28R38:43:00 [facility] ([facility])Internal Medicine Prog. NoteREPORT#:[id number] REPORT STATUS: SignedREPORT INITIALIZATION DATE:01/10/23 TIME: 2142 PATIENT: MATHEW CASTILLO UNIT #: [id number]#: [id number] [address] [birth year] AGE: 62 SEX: M ATTEND: Salinas Alba AUTHOR: Sofia Cheng NPREPT SERVICE DT/TIME: 01/10/232142* ALL edits or amendments must be made on the electronic/computer document * SubjectiveChief complaint:HematuriaHPI:62-year-old male with last medical history of, BPH, s/p bladder lift yesterday by Dr. Jones transferred from [place] for urology evaluation secondary tohematuria after bladder irrigation failed. pt was seen and evaluated by Dr. 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 Last admitted to [facility] on 10/16/22 with urinary retention. Abnormal labs: WBC 16.7, lctic acid-2.9, ua with [...] wheezing. Cardiovascular: Denies: chest pain, palpitations. GI: Denies: abdominal pain, nausea, vomiting. : Reports: hematuria. Denies: flank pain, frequency. Musculoskeletal: Arthritis: Denies: left upper, left lower, right upper, right lower. Neuro: Denies: change in LOC, confusion, dizziness, focal weakness, gait problem, headache, lightheaded, numbness, seizure, slurred speech, spinning sensation, syncope, unable to speak, vision change. Psych: Denies: agitation, anxiety, auditory hallucination, change in mental status, confusion, delusional, depression, homicidal ideation, hostile, insomnia, stress, suicidal ideation, visual hallucination. Objective GeneralVS/I O:Vital Signs Date Temp Pulse Resp B/P B/P Mean Pulse Ox FiO2 01/09-01/10 36.7-37.0 68-92 14-17 107-134/66-79 79.7-97.5 96-98 Last Documented: Result Date Time Pulse Ox 96 01/11 1920 B/P 107/66 01/11 1920 B/P Mean 79.7 01/11 1920 O2 Delivery Room air 01/11 1920 Temp 37.0 01/11 1920 Pulse 80 01/11 1920 Resp 14 01/11 1920 24 hour I O ending at 0700: 01/10 0700 01/09 1900 Intake Total Output Total 950 Balance -950 Output, Urine 950 PATIENT WEIGHT: Weight [...] TABLET) 1 TAB Q6H PRN PRN PO (DC) Morphine Sulfate (morphine SULFATE) 4 MG Q6H PRN PRN IV (DC) Ondansetron HCl (ZOFRAN) 4 MG Q4H PRN PRN IV Piperacillin Sod/Tazobactam Sod (ZOSYN 3.375GM) 3.375 GM Q8H IV Sodium Chloride (SODIUM CHLORIDE 0.9% 100 ML) 100 MLSodium Chloride (SODIUM CHLORIDE 0.9%) 1,000 ML .[id number] IV (DC) Sodium Chloride (SODIUM CHLORIDE 0.9%) 1,000 ML BOLUS IV Diagnosis, [...] bowel sounds, RLQ normal bowel sounds, RUQ normal bowel soundsGenitourinary: urinary catheter, hematuriaExtremities: moves all, no edema-all extremities, normal capillary refill, normal range of motion, normal sensory, normal motor functionNeuro/AGRICULTURAL AIRCRAFT PILOT: alert, oriented X 3Skin: dry, intact, no gross abnormalitiesPsychiatry: no hallucinations, normal affect, normal judgment/insight, normal mood, not homicidal, not suicidal Free Text DxA P NotesFree text DxA P notes:Assessment:62-year-old male with last medical history of, BPH, s/p bladder lift yesterday by Dr. Jones transferred from [place] for urology evaluation secondary tohematuria after bladder irrigation failed. pt was seen and evaluated by Dr. 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 Last admitted to [facility] on 10/16/22 with urinary retention.Abnormal labs: WBC [...] and mildly distended gallbladder.5. HX OF BPH, Hypertension, Schizophrenia Plan of care:Admit patient for further evaluation and treatmentUrology consultation in placeKeep Black with CBI Ceftriaxone 2 g dailyID consultationFollow-up with blood culture and urine cultureI's and O'sReplace electrolytesRepeat labsFurther recommendation based on patient's clinical whukxb1801/06/2023Vital signs within normal limitsBlood culture shows Enterococcus speciesUrine culture grows gram-negative teodoro-identification and sensitivity pendingHematuria is improved.Wean CBI as tolerated per uroContinue IV antibiotics Zosyn per ID, ceftriaxone is discontinuedStarted on Cogentin, still on tamsulosin.Monitor for further bleedingPain medications as neededFollow-up cultures, labs, continue medications and supportive care01/07/2023Vital signs are stableBlood culture grows Enterococcus faecalis, urine culture grows Pseudomonas aeruginosaContinue IV antibiotics Zosyn, tamsulosin p.o., CogentinUro continues to follow the patient. Stop CBI, cleared for discharge with FoleyDiscontinue telemetry monitoringFoley careFall precaution, follow-up labs, continue medications and present care01/08/2023 Vital signs are stableUro cleared the patient for discharge tomorrow with Black catheterContinue IV antibiotic Zosyn per IDDischarge planning: Home when medically clearedFollow-up labs, cultures, continue medications and present care01/09/2023atient remained stableHematuria is resolvedFor follow-up with uro as outpatient, cleared for discharge with Black.Consultants evaluations notedStill on IV antibiotic Zosyn, tamsulosin p.o.Fall precaution, pain medications as neededContinue medications and present careOctober 2022:Hematuria had resolvedFoley to bedside drainageSeen and evaluated by urologyContinues IV antibioticsContinue tamsulosinFall precautionContinue with current medicationsPlan is to discharge patient home in a.m. and follow-up with urology outpatient at 0024 at 0814 RPT #:[id number] OF REPORTPRProgress wyhs9793-61-07U02:43:00G.JKIU36997629-4707MCUpzni able for patient mctwKOXNUTJDGNNTUV9981-07-30S65:25:19 [facility] 2023-01-10 20:39:00 [id number]/Z+Wz MfCU8pjQ0BoHTSDptACbkap3ICVIB wGTlvSGPD0xee6eE8PDROx2e+sf5159-16-27M32:39:00 [facility] ([facility])Infectious Dis. Progress NoteREPORT#:[id number] REPORT STATUS: SignedREPORT INITIALIZATION DATE:01/10/23 TIME: 2038 PATIENT: MATHEW CASTILLO UNIT #: [id number]#: [id number] [address] [birth year] AGE: 62 SEX: M ATTEND: Salinas Alba I MDADM AUTHOR: Skip Jaffe MDREPT SERVICE DT/TIME: 01/10/232038* ALL edits or amendments must be made on the electronic/computer document * SubjectiveInternal recordPatient examined, chart reviewed, events of last 24 hours noted. See full dictated progress note for further details. ASSESSMENT AND PLAN: No new development. Patient remains awake and alert. Denies any new complaints. Remains afebrile. Hematuria [...] 2023 are negative so far at 24 hoursof incubation.. In view of the enterococcal bacteremia and Pseudomonas aeruginosa the associatedurinary tract infection we will continue the patient on IV Zosyn. If repeat blood cultures remain negative then we will consider discharging him home on oral ciprofloxacin. at 0244 RPT #:[id number] OF REPORTPRProgress atjy8492-64-53R64:39:00G.SGDF31493378-0299AXBxxyc able for patient zntcBPSXZFBOHDIWVA5331-29-77E63:44:38 [facility] 2023-01-10 08:39:00 [id number] EM+NNpSp0/MEU56Wx8Xsri/zJTMUe eDhGbYsHmLxzbogIOitJJ/S8m9d8239-02-34J37:39:00768 6-[address] [place] [address] PATIENT NAME: MATHEW CASTILLO ADMIT DATE: 01/06/23ACCOUNT NO: [id number] ROOM NO: [facility] AGE: 62 REPORT TYPE: PROGRESS NOTE SEX: M ADMITTING PHYSICIAN:Salinas Alba MD ATTENDING PHYSICIAN:Salinas Alba MD DATE: 01/09/2023 SUBJECTIVE: The patient was examined, chart reviewed, events of last 24 hoursnoted. The patient clinically is doing fairly well, remains [...] noted. Bowel sounds arenormoactive.EXTREMITIES: The patient has 3-way Black catheter in [...] MD Date Dictated: 01/10/2023 08:39:27Date Transcribed: 01/10/2023 09:42:11HA/KYLE Fyjyfqh ID: [id number] Authenticated and Edited by Skip Jaffe MD On 01/22/23 5:19:04 AM at 0520 PATIENT NAME: MATHEW CASTILLO ejtd3440-26-87Z55:42:00G.[id number] ble for patient ealfGPMMREOKNRIXHI2027-33-24Y03:21:54 [facility] 2023-01-09 22:29:00 [id number] aR6Qui2mZIWau286nNlH0KzkkxCwa vgXJ55juBUbR0PNXOAT15wuDa4x7937-98-97W58:29:00 [facility] ([facility])Internal Medicine Prog. NoteREPORT#:[id number] REPORT STATUS: SignedREPORT INITIALIZATION DATE:01/09/23 TIME: 2228 PATIENT: MATHEW CASTILLO UNIT #: [id number]#: [id number] [address] [birth year] AGE: 62 SEX: M ATTEND: Salinas Alba I MDA AUTHOR: Sofia Cheng NPREPT SERVICE DT/TIME: 01/09/232228* ALL edits or amendments must be made on the electronic/computer document * SubjectiveChief complaint:HematuriaHPI:62-year-old male with last medical history of, BPH, s/p bladder lift yesterday by Dr. Jones transferred from [place] for urology evaluation secondary tohematuria after bladder irrigation failed. pt was seen and evaluated by Dr. 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 Last admitted to [facility] on 10/16/22 with urinary retention. Abnormal labs: WBC 16.7, lctic acid-2.9, ua with [...] wheezing. Cardiovascular: Denies: chest pain, palpitations. GI: Denies: abdominal pain, nausea, vomiting. : Reports: hematuria. Denies: flank pain, frequency. Musculoskeletal: Arthritis: Denies: left upper, left lower, right upper, right lower. Neuro: Denies: change in LOC, confusion, dizziness, focal weakness, gait problem, headache, lightheaded, numbness, seizure, slurred speech, spinning sensation, syncope, unable to speak, vision change. Psych: Denies: agitation, anxiety, auditory hallucination, change in mental [...] 1904 Temp 36.8 01/10 1904 Pulse 75 01/10 1904 Resp 16 01/10 1904 O2 Delivery Room air 01/09 160 PATIENT WEIGHT: Weight (lb): Weight (oz): Weight [...] MLSodium Chloride (SODIUM CHLORIDE 0.9%) 1,000 ML .G63V73L IV Sodium Chloride (SODIUM CHLORIDE 0.9%) 1,000 ML BOLUS IV ResultsFindings/Data:Laboratory Tests 01/09/2349:[Embedded Image Not Available]Laboratory Tests 01/09 549 Chemistry Sodium (134 - 147 mEq/L) 139 Potassium (3.4 - 5.0 mEq/L) 4.2 Chloride (100 - 108 mEq/L) 105 Carbon Dioxide (21 - 33 mEq/l) 27 Anion Gap (0 - 20) 11 BUN (7 - 25 mg/dL) 12 Creatinine (0.6 - 1.3 mg/dL) 1.0 Glomerular Filtr Rate (80 - 90) 84.6 Glucose (77 - 141 mg/dL) 106 Calcium (8.0 - 10.5 mg/dL) 8.6 Laboratory Tests 01/09 0549 Hematology WBC (4.5 - 11.0 x10 3/uL) [...] % (Auto) (14.0 - 32.0 %) 20.8 Glascock % (Auto) (4.8 - 9.0 %) 7.7 Eos % (Auto) (0.3 - 3.7 %) 8.1 H Baso % (Auto) (0.0 - 2.0 %) 0.7 Neut # (Auto) (2.0 - 7.6 x10 3/uL) 4.51 Lymph # (Auto) (1.0 - 3.8 x10 3/uL) 1.51 Glascock # (Auto) (0.1 - 0.8 x10 3/uL) [...] bowel sounds, RLQ normal bowel sounds, RUQ normal bowel soundsGenitourinary: urinary catheter, hematuriaExtremities: moves all, no edema-all extremities, normal capillary refill, normal range of motion, normal sensory, normal motor functionNeuro/AGRICULTURAL AIRCRAFT PILOT: alert, oriented X 3Skin: dry, intact, no gross abnormalitiesPsychiatry: no hallucinations, normal affect, normal judgment/insight, normal mood, not homicidal, not suicidal Free Text DxA P NotesFree text DxA P notes:Assessment:62-year-old male with last medical history of, BPH, s/p bladder lift yesterday by Dr. Jones transferred from [place] for urology evaluation secondary tohematuria after bladder irrigation failed. pt was seen and evaluated by Dr. 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 Last admitted to [facility] on 10/16/22 with urinary retention.Abnormal labs: WBC [...] and mildly distended gallbladder.5. HX OF BPH, Hypertension, Schizophrenia Plan of care:Admit patient for further evaluation and treatmentUrology consultation in placeKeep Black with CBI Ceftriaxone 2 g dailyID consultationFollow-up with blood culture and urine cultureI's and O'sReplace electrolytesRepeat labsFurther recommendation based on patient's clinical djulmx7401/06/2023Vital signs within normal limitsBlood culture shows Enterococcus speciesUrine culture grows gram-negative teodoro-identification and sensitivity pendingHematuria is improved.Wean CBI as tolerated per uroContinue IV antibiotics Zosyn per ID, ceftriaxone is discontinuedStarted on Cogentin, still on tamsulosin.Monitor for further bleedingPain medications as neededFollow-up cultures, labs, continue medications and supportive care01/07/2023Vital signs are stableBlood culture grows Enterococcus faecalis, urine culture grows Pseudomonas aeruginosaContinue IV antibiotics Zosyn, tamsulosin p.o., CogentinUro continues to follow the patient. Stop CBI, cleared for discharge with FoleyDiscontinue telemetry monitoringFoley careFall precaution, follow-up labs, continue medications and present care01/08/2023 Vital signs are stableUro cleared the patient for discharge tomorrow with Black catheterContinue IV antibiotic Zosyn per IDDischarge planning: Home when medically clearedFollow-up labs, cultures, continue medications and present care3Patient remained stableHematuria is resolvedFor follow-up with uro as outpatient, cleared for discharge with Black.Consultants evaluations notedStill on IV antibiotic Zosyn, tamsulosin p.o.Fall precaution, pain medications as neededContinue medications and present care at 6358 at 8571 RPT #:[id number] OF REPORTPRProgress xuke3421-82-02U59:29:00G.MUJH82618385-5066BOVgvru able for patient irkbSVNCVONOZAOLBW5792-04-16L48:59:46 [facility] 2023-01-09 19:20:00 [id number] +diw2XZNjaVzAoIjLvfmpeC4CK1SU 5YniYYb4RVsTehS5VBBVpRjMpKi4764-75-07S08:20:00 [facility] ([facility])Infectious Dis. Progress NoteREPORT#:[id number] REPORT STATUS: SignedREPORT INITIALIZATION DATE:01/09/23 TIME: 1919 PATIENT: MATHEW CASTILLO UNIT #: [id number]#: [id number] [address] [birth year] AGE: 62 SEX: M ATTEND: Salinas Alba AUTHOR: Skip Jaffe MDREPT SERVICE DT/TIME: 01/09/231919* ALL edits or amendments must be made on the electronic/computer document * SubjectiveInternal recordPatient examined, chart reviewed, events of last 24 hours noted. See full dictated progress note for further details. ASSESSMENT AND PLAN: Patient clinically is doing about the same. Resting comfortably in bed. Has indwelling Black catheter in place. Hematuria has significantly improved however still has some small specks of the clotted blood in the Black catheter. Fever of up to 100.8 degree F. [...] him home on oral ciprofloxacin. at 0432 [facility] #:[id number] OF REPORTPRProgress tjgm4328-69-13V52:20:00G.NTKH13310900-3030FVMcujn able for patient ilukBDBOFZQDGLKCHC2489-02-59K72:33:11 [facility] 2023-01-09 18:36:00 [id number] OcBiIw4H6rGHA4YlMuuGD3e3YuSae 8mDOCId5b7AH2/e3efPkdhe65jB9364-09-24P05:36:18106 5-0330 [place] [address] PATIENT NAME: MATHEW CASTILLO ADMIT DATE: 01/06/23ACCOUNT NO: [id number] ROOM NO: GC146 AGE: 62 REPORT TYPE: PROGRESS NOTE SEX: M ADMITTING PHYSICIAN:Salinas Alba MD ATTENDING PHYSICIAN:Salinas Alba MD DATE: 01/08/2023 SUBJECTIVE: The patient examined. Chart reviewed. Events of last 24 hoursnoted. The patient clinically is not much changed. He remains awake and alert,resting comfortably in bed. Denies any new complaints. Remains afebrile. Nonausea or vomiting reported. No diarrhea reported. Hematuria has significantlyimproved. Continues to have indwelling catheter. CURRENT MEDICATIONS: Include benztropine, [...] noted. Bowel sounds arenormoactive.EXTREMITIES: The patient has 3-way Black catheter in [...] was PATIENT NAME: MATHEW CASTILLO admitted to [place], and from there, he was transferred to [facility] urology followup. The patient was on admission, [...] of incubation. His urine culture, however, has shown growth ofPseudomonas aeruginosa. Currently, he is on IV Zosyn and repeat blood culturesare in progress. If the repeat blood cultures remain negative, then we willconsider switching him to oral ciprofloxacin for discharge. Discussed with thepatient's nursing staff. Dictated By: Skip Jaffe MD Date Dictated: 01/09/2023 18:36:08Date Transcribed: 01/09/2023 20:19:12/[facility] ID: [id number] Authenticated and Edited by Skip Jaffe MD On 01/22/23 5:18:55 AM at 0520 PATIENT NAME: MATHEW CASTILLO alvh7072-31-46L97:19:00G.MHS23811631-1063EECjzqkw ble for patient aomaFVUTQWACQNUQQX7861-72-42I39:21:54 [facility] 2023-01-09 11:30:00 [id number] OHiu9JlQB7o2pZz2+nl6U5klsTJ9A CtBDAca93EISiRTQ599Dqwy3Zfm3060-83-85Y90:30:00 [facility] ([facility])Urology Progress NoteREPORT#:[id number] REPORT STATUS: SignedREPORT INITIALIZATION DATE:01/09/23 TIME: 1129 PATIENT: MATHEW CASTILLO UNIT #: [id number]#: [id number] [address] [birth year] AGE: 62 SEX: M ATTEND: Salinas Alba I MDADM AUTHOR: Dave Jones MDREPT SERVICE DT/TIME: 01/09/23 1130* ALL edits or amendments must be made on the electronic/computer document * SubjectiveHPI:Mathew Castillo is a 62 yo M history of hypertension, schizophrenia, BPH urinary retention who follows is status post UroLift 01/03/2023. Objective Physical ExamGenitourinary: Genitourinary: catheter in situ Diagnosis, Assessment PlanFree Text A P:62 y/o male s/p urolift - hematuria resolved - discharge with black and f/u as planned in clinic at 1131 RPT #:[id number] OF REPORTPRProgress msmz7055-62-85H04:30:00G.MSIX88559142-2677UQXefra able for patient wxvoFUCANKLQRTTVJQ2818-45-39A11:32:06 [facility] 2023-01-08 21:19:00 [id number] yom/ZlmVBFipusHma/xn3cPtsiQ7p wrruTRnDbchYJclOll4seTktinr8163-82-48D01:19:00 [facility])Internal Medicine Prog. NoteREPORT#:[id number] REPORT STATUS: SignedREPORT INITIALIZATION DATE:01/08/23 TIME: 2118 PATIENT: MATHEW CASTILLO UNIT #: [id number]#: [id number] [address] [birth year] AGE: 62 SEX: M ATTEND: Salinas Alba I [facility] AUTHOR: Sofia Cheng NPREPT SERVICE DT/TIME: 01/08/232118* ALL edits or amendments must be made on the electronic/computer document * SubjectiveChief complaint:HematuriaHPI:62-year-old male with last medical history of, BPH, s/p bladder lift yesterday by Dr. Jones transferred from [place] for urology evaluation secondary tohematuria after bladder irrigation failed. pt was seen and evaluated by Dr. 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 Last admitted to [facility] on 10/16/22 with urinary retention. Abnormal labs: WBC 16.7, lctic acid-2.9, ua with [...] wheezing. Cardiovascular: Denies: chest pain, palpitations. GI: Denies: abdominal pain, nausea, vomiting. : Reports: hematuria. Denies: flank pain, frequency. Musculoskeletal: Arthritis: Denies: left upper, left lower, right upper, right lower. Neuro: Denies: change in LOC, confusion, dizziness, focal weakness, gait problem, headache, lightheaded, numbness, seizure, slurred speech, spinning sensation, syncope, unable to speak, vision change. Psych: Denies: agitation, anxiety, auditory hallucination, change in mental [...] 01/08 1918 Pulse 79 01/08 1918 Resp 17 01/08 1918 24 hour I O ending at 0700: 01/08 0700 01/07 1900 Intake Total 550.00 Output Total [...] MLSodium Chloride (SODIUM CHLORIDE 0.9%) 1,000 ML .K50Y46F IV Sodium Chloride (SODIUM CHLORIDE 0.9%) 1,000 [...] % (Auto) (14.0 - 32.0 %) 22.3 Glascock % (Auto) (4.8 - 9.0 %) 6.9 Eos % (Auto) (0.3 - 3.7 %) 9.9 H Baso % (Auto) (0.0 - 2.0 %) 0.9 Neut # (Auto) (2.0 - 7.6 x10 3/uL) 3.89 Lymph # (Auto) (1.0 - 3.8 x10 3/uL) 1.46 Glascock # (Auto) (0.1 - 0.8 x10 3/uL) [...] bowel sounds, RLQ normal bowel sounds, RUQ normal bowel soundsGenitourinary: urinary catheter, hematuriaExtremities: moves all, no edema-all extremities, normal capillary refill, normal range of motion, normal sensory, normal motor functionNeuro/AGRICULTURAL AIRCRAFT PILOT: alert, oriented X 3Skin: dry, intact, no gross abnormalitiesPsychiatry: no hallucinations, normal affect, normal judgment/insight, normal mood, not homicidal, not suicidal Free Text DxA P NotesFree text DxA P notes:Assessment:62-year-old male with last medical history of, BPH, s/p bladder lift yesterday by Dr. Jones transferred from [place] for urology evaluation secondary tohematuria after bladder irrigation failed. pt was seen and evaluated by Dr. 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 Last admitted to [facility] on 10/16/22 with urinary retention.Abnormal labs: WBC [...] and mildly distended gallbladder.5. HX OF BPH, Hypertension, Schizophrenia Plan of care:Admit patient for further evaluation and treatmentUrology consultation in placeKeep Black with CBI Ceftriaxone 2 g dailyID consultationFollow-up with blood culture and urine cultureI's and O'sReplace electrolytesRepeat labsFurther recommendation based on patient's clinical tmbycw6901/06/2023Vital signs within normal limitsBlood culture shows Enterococcus speciesUrine culture grows gram-negative teodoro-identification and sensitivity pendingHematuria is improved.Wean CBI as tolerated per uroContinue IV antibiotics Zosyn per ID, ceftriaxone is discontinuedStarted on Cogentin, still on tamsulosin.Monitor for further bleedingPain medications as neededFollow-up cultures, labs, continue medications and supportive care01/07/2023Vital signs are stableBlood culture grows Enterococcus faecalis, urine culture grows Pseudomonas aeruginosaContinue IV antibiotics Zosyn, tamsulosin p.o., CogentinUro continues to follow the patient. Stop CBI, cleared for discharge with FoleyDiscontinue telemetry monitoringFoley careFall precaution, follow-up labs, continue medications and present care01/08/2023 Vital signs are stableUro cleared the patient for discharge tomorrow with Black catheterContinue IV antibiotic Zosyn per IDDischarge planning: Home when medically clearedFollow-up labs, cultures, continue medications and present care at 2359 at 1240 RPT #:[id number] OF REPORTPRProgress pwsj8359-00-24Z47:19:00G.XBDT45596963-7715TYSdkho able for patient urwfJQVPBCIDBECEKR4202-85-16U28:59:46 [facility] 2023-01-08 18:59:00 [id number] 1Z+fu8ERTUx8U+QBu/y722isqcDRM vjJxEbHhnxc9oouI1KtE/S6ADN06080-71-92B53:59:00 [facility] ([facility])Infectious Dis. Progress NoteREPORT#:[id number] REPORT STATUS: SignedREPORT INITIALIZATION DATE:01/08/23 TIME: 1858 PATIENT: MATHEW CASTILLO UNIT #: [id number]#: [id number] [address] [birth year] AGE: 62 SEX: M ATTEND: Salinas Alba I MDADM AUTHOR: Skip Jaffe MDREPT SERVICE DT/TIME: 01/08/231858* ALL edits or amendments must be made on the electronic/computer document * SubjectiveInternal recordPatient examined, chart reviewed, events of last 24 hours noted. See full dictated progress note for further details. ASSESSMENT AND PLAN: No significant change in general condition. Patient is [...] discharging him home on oral ciprofloxacin. at 0321 RPT #:[id number] OF REPORTPRProgress xgfo6644-42-08R62:59:00G.APNF47001445-9593RHYnobx able for patient fbxzOLHPONKHZYYIDN9643-50-23S05:21:51 [facility] 2023-01-08 18:22:00 [id number] TUgFN83myes4MJhOK76ZdsioyjzDq /oklhViO5xu3ibjQkBBqD07wgfy5388-83-13L08:22:19140 4-0317 [place] [address] PATIENT NAME: MATHEW CASTILLO ADMIT DATE: 01/06/23ACCOUNT NO: [id number] ROOM NO: [facility] AGE: 62 REPORT TYPE: PROGRESS NOTE SEX: M ADMITTING PHYSICIAN:Salinas Alba MD ATTENDING PHYSICIAN:Salinas Alba MD DATE: 01/07/2023 SUBJECTIVE: The patient examined. Chart reviewed. Events of last 24 hoursnoted. The patient clinically is not much changed. He remains awake and alert,resting comfortably in bed. Denies any new complaints. Continues to have Foleycatheter in place with irrigation and his urine appears to be completely cleanwithout any further hematuria. Remains afebrile. No nausea or vomitingreported. No diarrhea reported. CURRENT MEDICATIONS: Include [...] noted. Bowel sounds arenormoactive.EXTREMITIES: The patient has 3-way Black catheter in place and has very fainthematuria at the present time.EXTREMITIES: Both calves are soft. No calf tenderness. No pedal edema.Peripheral pulses are faintly palpable. the hematuria has resolved. LABORATORY DATA: WBC is stable around 6000 with hemoglobin of 9, hematocrit of29, platelet count is 205,000. Serum sodium is 138, potassium 4.0, nfjvyfox888, bicarbonate 26, glucose 91, BUN 14, creatinine 0.8, estimated GFR is 99.calcium is 7.8, blood culture 1 out of 2 has shown growth of Enterococcusfaecalis, which is pansensitive. Another blood culture so far is negative at 72hours of incubation. Urine culture has shown growth of Pseudomonas tqgodhxsgt95,000 to 50,000 colony forming units. Currently, the patient is on Zosyn IV. ASSESSMENT AND PLAN: The patient with multiple comorbidities, was initiallyadmitted through emergency room with ladan hematuria. He recently had UroLift PATIENT NAME: MATHEW CASTILLO procedure done and subsequently was discharged on the same day. However, on theday of admission, the patient developed ladan hematuria and came to emergencyroom. The patient was started on IV antibiotics and he was evaluated by urologyservice and received bladder irrigation through a [...] Dictated: 01/08/2023 18:22:31Date Transcribed: 01/08/2023 19:55:35HA/Trina #: [id number] ID: [id number] Authenticated and Edited by Skip Jaffe MD On 01/22/23 5:18:46 AM at 0520 PATIENT NAME: MATHEW CASTILLO eils2200-12-56W18:55:00G.AKQ18908452-3170QKLicnvj ble for patient yhjoHOUIZHVRMHCEYB5846-25-32E76:21:54 [facility] 2023-01-08 17:58:00 [id number] v+Hssh6ohEB+bn/664IM8QZ6W+hQy MfoLq1PmV1GKa2Eu+i8Q+MR4wHU3810-19-45D63:58:00 [facility] ([facility])Urology Progress NoteREPORT#:[id number] REPORT STATUS: SignedREPORT INITIALIZATION DATE:01/08/23 TIME: 1757 PATIENT: MATHEW CASTILLO UNIT #: [id number]#: [id number] [address] [birth year] AGE: 62 SEX: M ATTEND: Salinas Alba I MDADM AUTHOR: Dave Jones MDREPT SERVICE DT/TIME: 01/08/231757* ALL edits or amendments must be made on the electronic/computer document * SubjectiveHPI:Mathew Castillo is a 62 yo M history of hypertension, schizophrenia, BPH urinary retention who follows is status post UroLift 01/03/2023. Objective GeneralVS/I O:Last Documented: Result Date Time Pulse Ox 98 01/08 165 B/P 134/76 01/08 165 B/P Mean 95.2 01/09 1656 O2 Delivery Room air 01/09 1656 Temp 36.7 01/09 1656 Pulse 77 01/09 1656 Resp 14 01/09 1656 24 hour I O ending at 0700: 01/08 0700 01/07 1900 Intake Total 550.00 Output Total Balance 550.00 Intake, IV 550.00 PATIENT WEIGHT: Weight (lb): Weight (oz): Weight (kg): 70.909 Physical ExamGeneral appearance: alert, awake, orientedGenitourinary: Genitourinary: catheter in situ ResultsFindings/Data:Laboratory Tests: 01/08 0325 Chemistry Sodium (134 - 147 mEq/L) [...] 91 Calcium (8.0 - 10.5 mg/dL) 8.7 Hematology [...] % (Auto) (14.0 - 32.0 %) 22.3 Glascock % (Auto) (4.8 - 9.0 %) 6.9 Eos % (Auto) (0.3 - 3.7 %) 9.9 H Baso % (Auto) (0.0 - 2.0 %) 0.9 Neut # (Auto) (2.0 - 7.6 x10 3/uL) 3.89 Lymph # (Auto) (1.0 - 3.8 x10 3/uL) 1.46 Glascock # (Auto) (0.1 - 0.8 x10 3/uL) [...] s/p urolift - hematuria is improved - discharge with black tomorrow at 1759 RPT #:[id number] OF REPORTPRProgress wxwh6054-41-20F76:58:00G.CKQF36134071-6741OCIudqw able for patient faniRYFQWZJUJYHTLW4864-26-05Y86:00:52 [facility] 2023-01-08 02:42:00 [id number]/h/v KQBsOG9V1PkhrxofjG5+Dmu+ff7uq RQjpdtUiMBa+7NDMy4V/T5ewvza3641-06-22K64:42:00 [facility] ([facility])Infectious Dis. Progress NoteREPORT#:[id number] REPORT STATUS: SignedREPORT INITIALIZATION DATE:01/08/23 TIME: 024 PATIENT: MATHEW CASTILLO UNIT #: [id number]#: [id number] [address] [birth year] AGE: 62 SEX: M ATTEND: Salinas Alba AUTHOR: Skip Jaffe MDREPT SERVICE DT/TIME: 01/07/232129* ALL edits or amendments must be made on the electronic/computer document * SubjectiveInternal recordPatient examined, chart reviewed, events of last 24 hours noted. See full dictated progress note for further details. ASSESSMENT AND PLAN: No new development. Patient is resting comfortably in [...] blood culture is negative so far at 72 hours of incubation. Urine culture is showing growth of 10,000-50,000 colony-forming units of the Gram-negative rods identified as Pseudomonas aeruginosa which is stover sensitive. Currently on IV Zosyn. In view of the enterococcal bacteremia and Pseudomonas aeruginosa the associatedurinary tract infection we will continue the patient on IV Zosyn. at 0353 RPT #:[id number] OF REPORTPRProgress xvzb7936-42-74H16:42:00G.GJYP53359959-0725TBSwwwx able for patient ziebHUADAABAKHTWLD0261-83-59M51:54:17 [facility] 2023-01-07 21:05:00 [id number] Q+UjSY6W8C7DwGIo6mnLDx1QoCZhZ fTMoTWkxH1vlLgDxRvZ6jex3+6T9646-36-25M38:05:00 [facility] Prog. NoteREPORT#:[id number] REPORT STATUS: SignedREPORT INITIALIZATION DATE:01/07/23 TIME: 2104 PATIENT: MATHEW CASTILLO UNIT #: [id number]#: [id number] [address] [birth year] AGE: 62 SEX: M ATTEND: Salinas Alba I FIELD [facility] AUTHOR: Sofia Cheng NPREPT SERVICE DT/TIME: 01/07/232104* ALL edits or amendments must be made on the electronic/computer document * SubjectiveChief complaint:HematuriaHPI:62-year-old male with last medical history of, BPH, s/p bladder lift yesterday by Dr. Jones transferred from [place] for urology evaluation secondary tohematuria after bladder irrigation failed. pt was seen and evaluated by Dr. 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 Last admitted to [facility] on 10/16/22 with urinary retention. Abnormal labs: WBC 16.7, lctic acid-2.9, ua with [...] wheezing. Cardiovascular: Denies: chest pain, palpitations. GI: Denies: abdominal pain, nausea, vomiting. : Reports: hematuria. Denies: flank pain, frequency. Musculoskeletal: Arthritis: Denies: left upper, left lower, right upper, right lower. Neuro: Denies: change in LOC, confusion, dizziness, focal weakness, gait problem, headache, lightheaded, numbness, seizure, slurred speech, spinning sensation, syncope, unable to speak, vision change. Psych: Denies: agitation, anxiety, auditory hallucination, change in mental status, confusion, delusional, depression, homicidal ideation, hostile, insomnia, stress, suicidal ideation, visual hallucination. Objective GeneralVS/I O:Vital Signs Date Temp Pulse Resp B/P B/P Mean Pulse Ox FiO2 01/06-01/07 36.5-37.0 66-76 14-17 99-139/63-76 74.7-94.8 94-99 Last Documented: Result Date Time Pulse Ox 97 01/07 2055 B/P 139/72 01/07 2055 B/P Mean 94.2 01/07 2055 O2 Delivery Room air 01/07 2055 Temp 37.0 01/07 2055 Pulse 70 01/07 2055 Resp 14 01/07 2055 24 hour I O ending at 0700: 01/07 0700 01/06 1900 Intake Total 300.00 700.00 Output [...] MLSodium Chloride (SODIUM CHLORIDE 0.9%) 1,000 ML .[id number] IV Sodium Chloride (SODIUM CHLORIDE 0.9%) 1,000 ML BOLUS IV ResultsFindings/Data:Laboratory Tests 01/07/23356:[Embedded Image Not Available] 01/07/23355:[Embedded Image Not Available]Laboratory Tests 01/07 357 Chemistry Sodium (134 - 147 mEq/L) 138 Potassium (3.4 - 5.0 mEq/L) 4.0 Chloride (100 - 108 mEq/L) 104 Carbon Dioxide (21 - 33 mEq/l) 26 Anion Gap (0 - 20) 12 BUN (7 - 25 mg/dL) 14 Creatinine (0.6 - 1.3 mg/dL) 0.8 Glomerular Filtr Rate (80 - 90) 99.4 H Glucose (77 - 141 mg/dL) 91 Calcium (8.0 - 10.5 mg/dL) 7.8 L Laboratory Tests 01/08 356 Hematology WBC (4.5 - 11.0 x10 3/uL) 5.9 RBC (4.00 - 5.60 x10 6/uL) 3.23 L Hgb (12.5 - 16.9 g/dL) 9.2 L Hct (37.5 - 50.7 %) 29.2 L MCV (81.0 - 99.0 fL) 90.4 MCH (27.0 - 33.0 pg) 28.5 MCHC (33.0 - 37.0 g/dL) 31.5 L RDW (11.5 - 14.5 %) 13.8 Plt Count (150 - 400 x10 3/uL) 205 MPV (7.0 - 9.0 fL) 10.8 H Neut % (Auto) (56.0 - 77.0 %) 60.1 Lymph % (Auto) (14.0 - 32.0 %) 21.2 Glascock % (Auto) (4.8 - 9.0 %) 7.2 Eos % (Auto) (0.3 - 3.7 %) 10.4 H Baso % (Auto) (0.0 - 2.0 %) 0.8 Neut # (Auto) (2.0 - 7.6 x10 3/uL) 3.56 Lymph # (Auto) (1.0 - 3.8 x10 3/uL) 1.26 Glascock # (Auto) (0.1 - 0.8 x10 3/uL) [...] bowel sounds, RLQ normal bowel sounds, RUQ normal bowel soundsGenitourinary: urinary catheter, hematuriaExtremities: moves all, no edema-all extremities, normal capillary refill, normal range of motion, normal sensory, normal motor functionNeuro/AGRICULTURAL AIRCRAFT PILOT: alert, oriented X 3Skin: dry, intact, no gross abnormalitiesPsychiatry: no hallucinations, normal affect, normal judgment/insight, normal mood, not homicidal, not suicidal Free Text DxA P NotesFree text DxA P notes:Assessment:62-year-old male with last medical history of, BPH, s/p bladder lift yesterday by Dr. Jones transferred from [place] for urology evaluation secondary tohematuria after bladder irrigation failed. pt was seen and evaluated by Dr. 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 Last admitted to [facility] on 10/16/22 with urinary retention.Abnormal labs: WBC [...] and mildly distended gallbladder.5. HX OF BPH, Hypertension, Schizophrenia Plan of care:Admit patient for further evaluation and treatmentUrology consultation in placeKeep Black with CBI Ceftriaxone 2 g dailyID consultationFollow-up with blood culture and urine cultureI's and O'sReplace electrolytesRepeat labsFurther recommendation based on patient's clinical vzowlh3201/06/2023Vital signs within normal limitsBlood culture shows Enterococcus speciesUrine culture grows gram-negative teodoro-identification and sensitivity pendingHematuria is improved.Wean CBI as tolerated per uroContinue IV antibiotics Zosyn per ID, ceftriaxone is discontinuedStarted on Cogentin, still on tamsulosin.Monitor for further bleedingPain medications as neededFollow-up cultures, labs, continue medications and supportive care01/07/2023Vital signs are stableBlood culture grows Enterococcus faecalis, urine culture grows Pseudomonas aeruginosaContinue IV antibiotics Zosyn, tamsulosin p.o., CogentinUro continues to follow the patient. Stop CBI, cleared for discharge with FoleyDiscontinue telemetry monitoringFoley careFall precaution, follow-up labs, continue medications and present care at 2222 at 0742 [facility] #:[id number] OF REPORTPRProgress gzfd9078-88-16P64:05:00G.CLGX94782712-9611NCXgwwy able for patient kptdVOZIGRJUSFUOQG9909-49-46S10:22:45 [facility] 2023-01-07 16:17:00 [id number]+AqeW00k JxN48uZprI0eYcdWfF5Br1/Rh0T6T xTSrJh++t84NIo8m5A4130wxznF5886-54-27S11:17:00 [facility])Urology Progress NoteREPORT#:[id number] REPORT STATUS: SignedREPORT INITIALIZATION DATE:01/07/23 TIME: 1616 PATIENT: MATHEW CASTILLO UNIT #: [id number]#: [id number] [address] AGE: 62 SEX: M ATTEND: Salinas Alba I [facility] AUTHOR: Dave Jones MDREPT SERVICE DT/TIME: 01/07/231616* ALL edits or amendments must be made [...] - discharge with black tomorrow at 1617 [facility] #:[id number] OF REPORTPRProgress ixqi9355-12-62U21:17:00G.RHIJ98063287-9735TDSfjzi able for patient pdtnYVCGJUYZFYFYAX9630-19-71L65:18:01 [facility] 2023-01-07 05:20:00 [id number] NNmkk9DsC6la6A5IWGEdhA1D4bEST KeKaAWrRQUIfqLGgVU5JNXpNxEb7002-35-45G43:20:07297 3-[address] [place] [address] PATIENT NAME: MATHEW CASTILLO ADMIT DATE: 01/06/23ACCOUNT NO: [id number] ROOM NO: [facility] AGE: 62 REPORT TYPE: PROGRESS NOTE SEX: M ADMITTING PHYSICIAN:Salinas Alba MD ATTENDING PHYSICIAN:Salinas Alba MD DATE: 01/06/2023 SUBJECTIVE: The patient examined, chart reviewed, events of last 24 hoursnoted. The patient clinically is not much changed, currently restingcomfortably in bed. Denies any new complaints. [...] noted. Bowel sounds arenormoactive.EXTREMITIES: The patient has 3-way Black catheter in [...] One out of two blood cultures done on01/04/2023 has shown growth of Enterococcus species, identificationsusceptibility is pending,=. The second blood culture, however, is showing nogrowth at 48 hours of incubation. Urine culture is showing 10,000 to 50,000colony forming units [...] 1 out of 2 blood culture hasshown growth of Enterococcus species while the other blood culture is negativeand his urine culture is showing growth of gram-negative rods, while hisurinalysis did not show any bacteria. The patient had leukocytosis, which seemsto have improved with IV antibiotics, and in this setting, it will beappropriate to keep him on the current antibiotic regimen. We will follow up onthe identification of Enterococcus species. We will alter antibiotic regimenbased on the final culture results. Discussed with the patient's nursing staff. Dictated By: Skip Jaffe MD Date Dictated: 01/07/2023 05:20:31Date Transcribed: 01/07/2023 05:56:47 DORADO/Nicole #: [id number] ID: [id number] Authenticated and Edited by Skip Jaffe MD On 01/22/23 5:18:20 AM at 0520 PATIENT NAME: MATHEW CASTILLO ziop0560-38-44Z68:56:00G.HMJ97584996-6831RCScwdwz ble for patient bftwHVULDMJJSHQSIR4231-40-38Z60:21:33 [facility] 2023-01-06 21:39:00 [id number]/Dl9a5D wTMm4X8d01mBOIQbdTo2kH4Y+HZ27 mo4d5N69mMG3JQ9XUQ6Uacf3Vct7459-62-85Y81:39:00 [facility] Prog. NoteREPORT#:[id number] REPORT STATUS: SignedREPORT INITIALIZATION DATE:01/06/23 TIME: 2138 PATIENT: MATHEW CASTILLO UNIT #: [id number]#: [id number] [address]: [address] AGE: 62 SEX: M ATTEND: Salinas Alba I [facility] AUTHOR: Sofia Cheng NPREPT SERVICE DT/TIME: 01/06/232138* ALL edits or amendments must be made on the electronic/computer document * SubjectiveChief complaint:HematuriaHPI:62-year-old male with last medical history of, BPH, s/p bladder lift yesterday by Dr. Jones transferred from [place] for urology evaluation secondary tohematuria after bladder irrigation failed. pt was seen and evaluated by Dr. 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 Last admitted to [facility] on 10/16/22 with urinary retention. Abnormal labs: WBC 16.7, lctic acid-2.9, ua with [...] Resp B/P B/P Mean Pulse Ox FiO2 01/05-01/06 36.7-37.0 71-96 14-17 100-122/66-71 77.5-86.4 96-98 Last Documented: Result Date Time Pulse Ox 98 01/06 2110 B/P 122/68 01/06 2110 B/P Mean 85.9 01/06 2110 Temp 36.8 01/06 2110 Pulse 76 01/06 2110 Resp 17 01/06 2110 O2 Delivery Room air 01/06 1540 24 hour I O ending at 0700: 01/06 0700 01/05 1900 Intake [...] MLTamsulosin HCl (Flomax 0.4 mg) 0.4 MG 0600,1800 [...] MLSodium Chloride (SODIUM CHLORIDE 0.9%) 1,000 ML .[id number] IV Sodium Chloride (SODIUM CHLORIDE 0.9%) 1,000 ML BOLUS IV ResultsFindings/Data:Laboratory Tests 01/06/23 05:[Embedded Image Not Available]Laboratory Tests 01/06 517 Chemistry [...] (Auto) (14.0 - 32.0 %) 11.8 L Glascock % (Auto) (4.8 - 9.0 %) 7.5 Eos % (Auto) (0.3 - 3.7 %) 3.2 Baso % (Auto) (0.0 - 2.0 %) 0.4 Neut # (Auto) (2.0 - 7.6 x10 3/uL) 7.43 Lymph # (Auto) (1.0 - 3.8 x10 3/uL) 1.14 Glascock # (Auto) (0.1 - 0.8 x10 3/uL) [...] bowel sounds, RLQ normal bowel sounds, RUQ normal bowel soundsGenitourinary: urinary catheter, hematuriaExtremities: moves all, no edema-all extremities, normal capillary refill, normal range of motion, normal sensory, normal motor functionNeuro/AGRICULTURAL AIRCRAFT PILOT: alert, oriented X 3Skin: dry, intact, no gross abnormalitiesPsychiatry: no hallucinations, normal affect, normal judgment/insight, normal mood, not homicidal, not suicidal Free Text DxA P NotesFree text DxA P notes:Assessment:62-year-old male with last medical history of, BPH, s/p bladder lift yesterday by Dr. Jones transferred from [place] for urology evaluation secondary tohematuria after bladder irrigation failed. pt was seen and evaluated by Dr. 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 Last admitted to [facility] on 10/16/22 with urinary retention.Abnormal labs: WBC [...] and mildly distended gallbladder.5. HX OF BPH, Hypertension, Schizophrenia Plan of care:Admit patient for further evaluation and treatmentUrology consultation in placeKeep Black with CBI Ceftriaxone 2 g dailyID consultationFollow-up with blood culture and urine cultureI's and O'sReplace electrolytesRepeat labsFurther recommendation based on patient's clinical xdpxjv7501/06/2023Vital signs within normal limitsBlood culture shows Enterococcus speciesUrine culture grows gram-negative teodoro-identification and sensitivity pendingHematuria is improved.Wean CBI as tolerated per uroContinue IV antibiotics Zosyn per ID, ceftriaxone is discontinuedStarted on Cogentin, still on tamsulosin.Monitor for further bleedingPain medications as neededFollow-up cultures, labs, continue medications and supportive care at 0015 at 0740 RPT #:[id number] OF REPORTPRProgress logh8676-84-71D32:39:00G.PQLX54982942-6142OXKqxrl able for patient lbxiTYBNCSMRZWFLOK1210-42-55A35:16:29 [facility] 2023-01-06 19:39:00 [id number] uJOxJ0n4KyrjUV5141gi77ZmT61Dy PQ/I+dCUzyiE2gL5PTou+3I0Ds48071-84-59X86:39:00 [facility] ([facility])Urology Progress NoteREPORT#:[id number] REPORT STATUS: SignedREPORT INITIALIZATION DATE:01/06/23 TIME: 1938 PATIENT: MATHEW CASTILLO UNIT #: [id number]#: [id number] [address] [birth year] AGE: 62 SEX: M ATTEND: Salinas Alba I MDADM AUTHOR: Dave Joens MDREPT SERVICE DT/TIME: 01/06/231938* ALL edits or [...] Result Date Time Pulse Ox 97 01/07 1540 B/P 100/66 01/07 1540 B/P Mean 77.5 01/07 1540 O2 Delivery Room air 01/07 1540 Temp 36.7 01/07 1540 Pulse 71 01/06 154 Resp 14 01/07 1540 24 hour I O ending at 0700: 01/06 0700 01/05 1900 Intake Total 400.00 Output Total 1000 Balance -600.00 Intake, IV 400.00 Output, Urine 1000 PATIENT WEIGHT: Weight (lb): Weight (oz): Weight (kg): 70.909 Physical ExamGeneral appearance: alert, awake, orientedGenitourinary: Genitourinary: cont. bladder irrig. run. ResultsFindings/Data:Laboratory Tests: 01/06 517 Chemistry Sodium (134 - 147 [...] (Auto) (14.0 - 32.0 %) 11.8 L Glascock % (Auto) (4.8 - 9.0 %) 7.5 Eos % (Auto) (0.3 - 3.7 %) 3.2 Baso % (Auto) (0.0 - 2.0 %) 0.4 Neut # (Auto) (2.0 - 7.6 x10 3/uL) 7.43 Lymph # (Auto) (1.0 - 3.8 x10 3/uL) 1.14 Glascock # (Auto) (0.1 - 0.8 x10 3/uL) [...] improved - wean cbi as tolerated at 1941 RPT #:[id number] OF REPORTPRProgress peqr9325-67-08R53:39:00G.OXOT52481809-1879EONdzoc able for patient cuqvSETWDAZHNQKNNX3207-42-15K50:41:57 [facility] 2023-01-06 19:19:00 [id number] fgeyEY9ST9mNAkJyzIdtgSoRiLRpP OUbAUy6Lv3PCsyDVbhmqz+mNCTw0531-50-96F74:19:00 [facility] ([facility])Infectious Dis. Progress NoteREPORT#:[id number] REPORT STATUS: SignedREPORT INITIALIZATION DATE:01/06/23 TIME: 1918 PATIENT: ANNAMATHEW SINCERE UNIT #: [id number]#: [id number] [facility] AGE: 62 SEX: M ATTEND: Salinas Alba AUTHOR: Skip Jaffe MDREPT SERVICE DT/TIME: 01/06/231918* ALL edits or amendments must be made on the electronic/computer document * SubjectiveInternal recordPatient examined, chart reviewed, events of last 24 hours noted. See full dictated progress note for further details. ASSESSMENT AND PLAN: No significant change in general condition. Patient is [...] possibility[place] [address] colony-forming units of the Gram-negative rods. Identification and susceptibility is pending. Keep the patient on IV Zosyn. at 0411 RPT #:[id number] OF REPORTPRProgress szob6685-45-79M50:19:00G.TNJO30480636-4368QYYanwi able for patient txwxAEZMFQPJWXAAVM8676-93-53B06:11:25 [facility] 2023-01-06 17:40:00 [id number] 39TadjndTJKQUw1+uy2xmxhFZXLw3 x+hIdfWL8gfzcdHHQLfYNslSZuW7353-97-15C13:40:54792 2-[address] [address] PATIENT NAME: MATHEW CASTILLO ADMIT DATE: 01/06/23ACCOUNT NO: [id number] ROOM NO: [facility] AGE: 62 REPORT TYPE: CONSULTATION REPORT SEX: M ADMITTING PHYSICIAN:Salinas Alba MD ATTENDING PHYSICIAN:Salinas Alba MD CONSULTATION DATE: 01/05/2023 INFECTIOUS DISEASE CONSULTATION The patient examined, chart reviewed, old records reviewed. Thank you, Dr. Michael, for asking me to evaluate Mr. Mathew Castillo. HISTORY OF PRESENT ILLNESS: Mr. Castillo is known to me from his recent hospitalization at [facility] in 10/2022. He is a 62-year-old male with a past medical history of schizophrenia, benign prostatic hypertrophy with recurrent urinary symptomatology, history of previous episode of urinary retention due to bladder neck obstruction requiring indwelling Black catheter placement and hospitalization in October of 2022. The patient lives in [place] and he had an outpatient prostate procedure done by Dr. Dave Jones with UroLift on Friday01/03/2023 and was discharged home on the same day. The patient went back to [place]. However, subsequently, he started to notice ladan hematuria on Friday and had no other constitutional symptoms including fever or chills. The patient because of worsening hematuria decided to go to the hospital. He went to hospital in [place] and he was told to follow up with the urologist and he was transferred to the [facility]. The patient at present is hemodynamically stable and alert. He was evaluated by Dr. Crystal Alberts on Urology consultation. He was empirically placed on broad-spectrum IV antibiotics after getting appropriate cultures. Infectious diseases consultation is requested for evaluation of the patient for marked leukocytosis, possible sepsis, and for advice regarding further antibiotic treatment as necessary. REVIEW OF SYSTEMS: The patient denies any fever or chills. Denies any headache, dizziness or blurring of vision. Denies any chest pain, cough, expectoration, or shortness of breath. Denies any nausea, vomiting or diarrhea. Denies any significant discomfort in the suprapubic region; however, states that he still has significant dysuria. He does have a 3-way Black catheter in place, but states that whenever he has urge to pass urine, he feels dysuria, even though, his symptoms according to him has shown improvement since he was admitted. He did have vomiting x1 today, but denies any further nausea or vomiting. PAST MEDICAL HISTORY: Significant for schizophrenia of several decades duration. The patient is disabled because of that. History of hypertension, history of benign prostatic hypertrophy, history of previous hospitalizations inJuly of 2022 with urinary obstruction due to bladder neck obstruction. The patient had indwelling Black catheter placed, which he was discharged with. PATIENT NAME: MATHEW CASTILLO PAST SURGICAL HISTORY: The patient previously had no surgical history. However, he has undergone UroLift procedure on 01/03/[address] Dave Jones as an outpatient. VACCINATION HISTORY: The patient has received 2 doses of COVID-19 vaccination. No further booster doses were given. ALLERGIES: THE PATIENT HAS NO KNOWN DRUG ALLERGIES. SOCIAL AND PERSONAL HISTORY: The patient is single. He lives with his daughterjailene [place]. The patient has been a longtime smoker and continues to smoke. No history of IV drug use, alcohol use, or substance abuse. 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 At that time, he started to haveauditory hallucinations and was subsequently diagnosed with schizophrenia. CURRENT MEDICATIONS: Include benztropine mesylate, tamsulosin, haloperidol, Zosyn IV, Tylenol p.r.n., docusate sodium p.r.n., hydrocodone bitartrate p.r.n.,hydralazine p.r.n., morphine sulfate p.r.n., ondansetron p.r.n., ceftriaxone IV. PHYSICAL EXAMINATION:GENERAL: The patient is resting in bed. He is awake and alert. Does not appearto be toxic. Does not appear to be in any acute distress.VITAL SIGNS: Temperature maximum in last 24 hours is 38.2 degrees Celsius, blood pressure is 106/66, respirations are 17 per minute, and pulse is 86 per minute. The patient's weight is around 71 kg.HEENT: Head is atraumatic and normocephalic. Pupils are equal and reacting to light and accommodation bilaterally. Extraocular movements are intact. Oropharynx is clear. Oral hygiene is fair.NECK: Supple. JVD is absent. No carotid bruit, thyromegaly, or cervical lymphadenopathy. There is fair air entry bilaterally.CARDIOVASCULAR: S1, [...] is 224. Serum sodium is 132, potassium 4.2, chloride 99, bicarbonate 24, glucose 120, BUN 15, creatinine 1.1, estimated GFR is 75, calcium [...] wbc's, more than50 rbc's, no bacteria, 4+ calcium oxalate crystals, and 2+ yeast. CT of abdomen and pelvis with contrast done on admission shows prostatomegaly, decompressed bladder with Black in place. No hydronephrosis, no enhancing renalmasses, cholelithiasis and a mildly distended gallbladder, moderate hiatal PATIENT NAME: MATHEW CASTILLO hernia. [place] admission, [place] [address]. The patient had 2 blood cultures done. Urine culture is incubating. ASSESSMENT: The patient with multiple comorbidities including history of benignprostatic hypertrophy with previous episode of urinary retention requiring indwelling Black catheter placement has undergone an UroLift procedure on 01/03/2023, and subsequently was discharged on the same day; however, yesterday he started to have hematuria and was seen at a hospital in [facility] and is transferred to [facility] for further Urology evaluation. 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 His urinalysis does have markedpyuria without any bacteriuria and his blood and urine cultures are still in progress. Currently, he is on broad-spectrum IV antibiotics and possibility of transient bacteremia in this setting cannot be excluded that could have led to this fever. The patient did have a procedure recently and part of the leukocytosis likely could be secondary to [...] MD Date Dictated: 01/06/2023 17:40:46Date Transcribed: 01/06/2023 21:28:36ESTRADA/Concepcion #: [id number] ID: [id number] by Skip Jaffe MD On 01/22/2023 05:17:37 AM at 0517 PATIENT NAME: MATHEW CASTILLO :28:00G.WA [id number] for patient rleqDHUTAEHMQRJNNQ2629-10-99R22:18:03 [facility] 2023-01-05 23:00:00 [id number] gbZsABrdilSSs7O1IGsHnuuYGuBwH 4ymZSU2rMSDNFEkET+A7K/RWpe36055-01-21K13:00:00 [facility] ([facility])Infect Disease Consult NoteREPORT#:[id number] REPORT STATUS: SignedREPORT INITIALIZATION DATE:01/05/23 TIME: 230 PATIENT: MATHEW CASTILLO UNIT #: [id number]#: [id number] ROOM/BED: L928-4TZN: 59 AGE: 62 SEX: M ATTEND: Salinas Alba AUTHOR: Skip Jaffe MDREPT SERVICE DT/TIME: 01/05/23 2300* ALL edits or amendments must be made on the electronic/computer document * History of Present IllnessHPI:Thank you for the consultation. Patient's current and old record reviewed. Orders initiated. See full dictated consultation report for further details. Patient is known to our service from his recent hospitalization at [facility] in October of 2022. ASSESSMENT AND PLAN: [...] now. Follow-up blood and urine culture result. History - Adult longitudinalAllergies:Coded Allergies:No Known Allergies (10/16/22) at 0526 RPT #:[id number] OF REPORTRPTsyhcqzqfjjj4209-47-64A07:00:00G.PDOC2 [id number] for patient ydqsKCAZZPGYZNUJVP9873-23-63R72:27:03 [facility] 2023-01-05 13:05:00 [id number] hEMwAfTttw5hWEJw01TW/GU8wG1NN 6S6zCjxAw5X338XtsTFg9T8LVuM3436-65-00L94:05:00 [facility] ([facility])Urology Consult NoteREPORT#:[id number] REPORT STATUS: SignedREPORT INITIALIZATION DATE:01/05/23 TIME: 1305 PATIENT: MATHEW CASTILLO UNIT #: [id number]#: [id number] [facility]FB[facility] 59 AGE: 62 SEX: M ATTEND: Salinas [...] for patients 13 years old or older: Former SmokerDate last smoked: 10/16/22Allergies:Coded Allergies:No Known Allergies (10/16/22) Review of Systems ROSConstitutional:Denies: chills, fatigue, fever, generalized weakness. :Reports: hematuria. Denies: dysuria, flank pain. All systems rev neg: except as marked ObjectiveVS/I O:Last Documented: Result Date Time Pulse Ox 93 01/06 1112 B/P 110/72 01/06 1112 B/P Mean 84.8 01/06 1112 Temp 98.1 01/06 1112 Pulse 88 01/06 1112 Resp 18 01/05 111 O2 Delivery Room air 01/05 0404 24 hour I O ending at 0700: 01/05 0700 01/04 1900 Intake Total Output [...] (Auto) (14.0 - 32.0 %) 4.5 L Glascock % (Auto) (4.8 - 9.0 %) 6.1 Eos % (Auto) (0.3 - 3.7 %) 0.3 Baso % (Auto) (0.0 - 2.0 %) 0.2 Neut # (Auto) (2.0 - 7.6 x10 3/uL) 15.99 H Lymph # (Auto) (1.0 - 3.8 x10 3/uL) 0.82 L Glascock # (Auto) (0.1 - 0.8 x10 3/uL) [...] x10 3/uL) 0.00 01/04 01/04 01/04 2205 2149 2000 Chemistry Sodium (134 - 147 [...] (Auto) (14.0 - 32.0 %) 5.4 L Glascock % (Auto) (4.8 - 9.0 %) 5.3 Eos % (Auto) (0.3 - 3.7 %) 0.0 L Baso % (Auto) (0.0 - 2.0 %) 0.2 Neut # (Auto) (2.0 - 7.6 x10 3/uL) 14.77 H Lymph # (Auto) (1.0 - 3.8 x10 3/uL) 0.90 L Glascock # (Auto) (0.1 - 0.8 x10 3/uL) [...] pH (5.0 - 7.0) 7.0 Ur Specific Bluefield (1.005 - 1.030) 1.005 Urine Protein (NEGATIVE) [...] sterile water with few small clots returning with his urine remaining clear. CBI was continued. Diagnosis, Assessment Plan Diagnosis, Assessment PlanFree Text A P:This is a 62-year-old male with schizophrenia, hypertension, BPH s/p UroLift 01/03/2023. Developed persistent hematuria postop. CT abdomen pelvis with normal upper tracts, he does have a leukocytosis. Fever, otherwise appears nontoxic. He is currently receiving Zosyn and had 1 dose of ceftriaxone. - Continue Black catheter- Continue CBI, titrate to clear- Ok to resume regular diet at this time. NPOpMN Crystal Alberts MD[facility] at 1312 RPT #:[id number] OF REPORTSIBxxqenmpjmms7386-44-90K48:05:00G.PDOC2 [id number] for patient jzzaERYUNUIXAXLTPR0113-77-56I50:12:53 [facility] 2023-01-05 11:34:00 [id number]/t4gGg 52SlLMLsCwpga5mQqssvOUsINpLF4 vmnk+3xzmbngjEiLtQxfpXBz4Or6160-91-22F35:34:00 [facility] ([facility])History Physical - AdultREPORT#:[id number] REPORT STATUS: SignedREPORT INITIALIZATION DATE:01/05/23 TIME: 1133 PATIENT: MATHEW CASTILLO UNIT #: [id number]#: [id number] [address] [birth year] AGE: 62 SEX: M ATTEND: Salinas Alba AUTHOR: Sofia Cheng NPREPT SERVICE DT/TIME: 01/05/23 1134* ALL edits or amendments must be made on the electronic/computer document * History of Present Illness HPIChief complaint:HematuriaHPI:62-year-old male with last medical history of, BPH, s/p bladder lift yesterday by Dr. Jones transferred from [place] for urology evaluation secondary tohematuria after bladder irrigation failed. pt was seen and evaluated by Dr. 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 Last admitted to [facility] on 10/16/22 with urinary retention. Abnormal labs: WBC 16.7, lctic acid-2.9, ua with [...] for patients 13 years old or older: Former SmokerDate last smoked: 10/16/22 Medication/Allergy-Vaccine HxAllergies:Coded Allergies:No [...] insomnia, stress, suicidal ideation, visual hallucination. Physical ExamVS/I OVital Signs: Date Time Temp [...] hour I O ending at 0700: 01/05 0700 01/04 1900 Intake Total Output [...] bowel sounds, RLQ normal bowel sounds, RUQ normal bowel soundsGenitourinary: urinary catheter, hematuriaExtremities: moves all, no edema-all extremities, normal capillary refill, normal range of motion, normal sensory, normal motor functionNeuro/AGRICULTURAL AIRCRAFT PILOT: alert, oriented X 3Skin: dry, intact, no gross abnormalitiesPsychiatry: no hallucinations, normal affect, normal judgment/insight, normal mood, not homicidal, not suicidal ResultsFindings/Data:Laboratory Tests: 01/05 01/05 01/05 01/05 [...] (Auto) (14.0 - 32.0 %) 4.5 L Glascock % (Auto) (4.8 - 9.0 %) 6.1 Eos % (Auto) (0.3 - 3.7 %) 0.3 Baso % (Auto) (0.0 - 2.0 %) 0.2 Neut # (Auto) (2.0 - 7.6 x10 3/uL) 15.99 H Lymph # (Auto) (1.0 - 3.8 x10 3/uL) 0.82 L Glascock # (Auto) (0.1 - 0.8 x10 3/uL) [...] 0.1 x10 3/uL) 0.00 01/04 01/04 01/04 5499 2141 2000 Chemistry Sodium (134 - 147 mEq/L) [...] (Auto) (14.0 - 32.0 %) 5.4 L Glascock % (Auto) (4.8 - 9.0 %) 5.3 Eos % (Auto) (0.3 - 3.7 %) 0.0 L Baso % (Auto) (0.0 - 2.0 %) 0.2 Neut # (Auto) (2.0 - 7.6 x10 3/uL) 14.77 H Lymph # (Auto) (1.0 - 3.8 x10 3/uL) 0.90 L Glascock # (Auto) (0.1 - 0.8 x10 3/uL) [...] pH (5.0 - 7.0) 7.0 Ur Specific Bluefield (1.005 - 1.030) 1.005 Urine Protein (NEGATIVE) [...] HrsCAT SCAN - CT ABD PELVIS W/CONT 01/05 940 Report Impression - Status: SIGNED Entered: 01/04/2023 4523 IMPRESSION: 1. Prostatomegaly. Decompressed bladder with a Black in place.2. No hydronephrosis. No enhancing renal masses.3. Cholelithiasis and mildly distended gallbladder.4. Moderate hiatal hernia.Impression By: Nick Magaña M.D. Diagnosis, Assessment Plan Free Text DxA P NotesFree Text DxA P Notes:Assessment:62-year-old male with last medical history of, BPH, s/p bladder lift yesterday by Dr. Jones transferred from [place] for urology evaluation secondary tohematuria after bladder irrigation failed. pt was seen and evaluated by Dr. 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 Last admitted to [facility] on 10/16/22 with urinary retention. Abnormal labs: WBC 16.7, lctic acid-2.9, ua with [...] and mildly distended gallbladder.5. HX OF BPH, Hypertension, Schizophrenia Plan of care:Admit patient for further evaluation and treatmentUrology consultation in placeKeep Black with CBI Ceftriaxone 2 g dailyID consultationFollow-up with blood culture and urine cultureI's and O'sReplace electrolytesRepeat labsFurther recommendation based on patient's clinical course at 0055 at 0739 RPT #:[id number] OF REPORTHPHistory and physical dwdwkyezczz8705-65-67V26:34:00G.MJHE44851842-2486 AVAvailable for patient zzdnJVZVPTFKIEEODD0022-36-37S80:55:31 [facility] 2023-01-05 01:59:00 [id number]/sU5iWnU X62LZbJKfV6dZ2wz+Q+10w5NC03ay M5vPAmrnhX1JSC1xFJVkMTBkScB2727-18-96C30:59:00 [facility] ([facility])Clinical NoteREPORT#:[id number] REPORT STATUS: SignedREPORT INITIALIZATION DATE:01/05/23 TIME: 0159 PATIENT: MATHEW CASTILLO UNIT #: [id number]#: [id number] [address]: [address] AGE: 62 SEX: M ATTEND: Salinas Alba I [facility] AUTHOR: Sofia Cheng NPREPT SERVICE DT/TIME: 01/05/23158* ALL edits or amendments must be made on the electronic/computer document * Clinical NoteNote:Clinical data reviewedOrders placed at 0222 RPT #:[id number] OF REPORTCLClinical ubto2031-42-87O27:59:00G.TYVS18843484-3163HIYvbxm able for patient dyvbCOUENMMZQYWACC1232-06-41H99:22:53 [facility] 2023-01-04 20:02:00 [id number]+5KrlUg 5s7xubBzV4DyOvfzlctRgoQQAQis6 wdJC2p8KC5e8B6lUeg3bsBkz8/f3051-47-73Y32:02:00 [facility] ([facility] PROVID[facility] REPORTREPORT#:[id number] REPORT STATUS: SignedDATE:01/04/23 TIME: 2001 PATIENT: MATHEW CASTILLO UNIT #: [id number]#: [id number] [address]V316-9EQX: 62 SEX: M PCP PHYS: Lakhwinder Guillermo MDSERVICE AUTHOR: Vee Horton APRCHARYP * ALL edits or amendments must be made on the electronic/computer document * Vee Horton 01/04/232001:HPI-General Illness Free Text HPI NotesFree Text HPI Notes62 yo male with HTN, BPH, chronic indwelling black cath, s/p bladder lift yesterday per Dr. Jones presents with gross hematuria associated with n/v. Denies abdominal pain, weakness, dizziness, chest pain and SOB. Per daughter atbedside patient evaluated at [place] ED [facility], bladder irrigation attempted without resolution of hematuria. Pt denies chest pain, SOB, abdominal pain, dizziness and syncope. GeneralConfirmed Patient YesInitial Greet Date/Time 01/04/231928 PresentationChief Complaint blood in urine Review of Systems ROS StatementsAll systems rev neg except as marked. Free Text ROS NotesFree Text ROS NotesAll systems reviewed and noted in HPI. Past Medical History - AdultStated Complaint BLOOD IN URINE BLACK LEAKINGAllergiesCoded Allergies:No Known Allergies (10/16/22) Calculated Suicide Risk (nurs) No riskPast Medical History:Reports: Hypertension, BPH, Schizophrenia. Additional Surgical HistoryNone reportedAdditional Family HistoryNoncontributoryAlcohol Use Denies EtOH useDrug Use Denies recreational drugsSmoking status for patients 13 years old or older: Former Smoker Physical Exam Vital SignsVital SignsFirst Documented: Result Date Time Pulse Ox 99 01/04 1926 B/P 128/82 01/04 192 B/P Mean 97 01/04 1926 O2 Delivery Room air 01/04 1926 Temp 37.4 01/04 1926 Pulse 102 01/04 1926 Resp 16 01/04 1926 Last Documented: Result Date Time Pulse Ox 99 01/04 192 B/P 128/82 01/04 192 B/P Mean 97 01/04 1926 O2 Delivery [...] Not Available]Laboratory Tests: 01/04 01/04 01/04 2205 2149 2000 Chemistry Sodium (134 - 147 [...] (Auto) (14.0 - 32.0 %) 5.4 L Glascock % (Auto) (4.8 - 9.0 %) 5.3 Eos % (Auto) (0.3 - 3.7 %) 0.0 L Baso % (Auto) (0.0 - 2.0 %) 0.2 Neut # (Auto) (2.0 - 7.6 x10 3/uL) 14.77 H Lymph # (Auto) (1.0 - 3.8 x10 3/uL) 0.90 L Glascock # (Auto) (0.1 - 0.8 x10 3/uL) [...] pH (5.0 - 7.0) 7.0 Ur Specific Bluefield (1.005 - 1.030) 1.005 Urine Protein (NEGATIVE) [...] AERUGINOSA 01/04 2149 Blood Culture - COMP BLOOD 01/04 2149 Blood Culture Gram Stain - COMP BLOOD 01/04 2149 Blood Culture - COMP BLOOD ENTEROCOCCUS FAECALIS 01/04 2149 Blood Culture Gram Stain - COMP BLOOD Recent Impressions:CAT SCAN - CT ABD PELVIS W/CONT 01/05 940 Report Impression - Status: SIGNED Entered: 01/04/20232226 IMPRESSION: 1. Prostatomegaly. Decompressed bladder with a Black in place.2. No hydronephrosis. No enhancing renal masses.3. Cholelithiasis and mildly distended gallbladder.4. Moderate hiatal hernia.Impression By: Nick Magaña M.D. Re-Evaluation MDM Free Text MDM NotesFree Text MDM Notes62 yo male with BPH, chronic indwelling black cath s/p urolift 1 day [employer] presents to ED 2/2 gross hematuria. Tachycardic on arrival. Exam remarkable for gross hematuria noted to black cath bag, actively draining. Differnetials considered UTI, pyelonephritis, sepsis, malignancy, nephrolithiasis. CBC/CMP, CT abdomen pelvis ordered. CBC remarkable for leukocytosis, Hbg/Hct stable. 2051 secondary sepsis bundle ordered 2/2 tahcycardia, low grade fever, leukocytosis in setting of recent urology intervention. CT abdomen/pelvis remarkable for 1. Prostatomegaly. Decompressed bladder with a Black in place. 2. No hydronephrosis. No enhancing renal masses.3. Cholelithiasis and mildly distended gallbladder. 4. Moderate hiatal hernia. Black draining well troughoutED course, gross hematuria persist. UA shows > 50 wbc. Plan admit to hospital medicine, consult urology for am eval. Pt/family agree with plan. ED CourseMedication(s) OrderedMedication(s) Ordered:Anti-Infective Agents Sig/Mark Start time Last Medication Dose Route Stop Time Status Admin Ceftriaxone Sodium 1,000 MG X1ED STA 01/05 2052 DC 01/04 Sodium Chloride 10 ML IV 01/04 Central Nervous System Agents Sig/Mark Start time Last Medication Dose Route Stop Time Status Admin Morphine Sulfate 2 MG X1ED STA 01/04 1955 DC 01/04 IV 01/04 Gastrointestinal Drugs Sig/Mark Start time Last Medication Dose Route Stop Time Status Admin Ondansetron HCl 4 MG X1ED STA 01/04 1955 DC 01/04 IV 01/04 Patient Discharge Departure Vital Signs/ConditionVital SignsFirst Documented: Result Date Time Pulse Ox 99 01/04 192 B/P 128/82 01/04 1926 B/P Mean 97 [...] Guarded Clinical ImpressionClinical ImpressionPrimary Impression: Gross hematuriaSecondary Impressions: Leukocytosis, UTI (urinary tract infection)Time of Impression 0040 Disposition DecisionHospitalize Hosp Physician Name Salinas Alba MD [facility] Physician Hospitalist Request Time 34 Request Date [...] CIPROFLOXACIN 500 MG PO BID CIPROFLOXACIN 500 MG PO BID #14 TABS Supervising Physician Note MidLv Saw Pt AloneI have reviewed the PA/PLASTIC DIE MAKER APPRENTICE's note and plan of care. I was available for consultation as needed at all times during the patient's visit in the emergency department. I agree with the clinical impression, plan and disposition. at 2148 at 0552RPT #:[id number] OF REPORTEDProvidence [facility] department wbwlpd5929-80-80N92:02:00G.SBEU15477814-3369ELYjq ilable for patient cgeoSQFGNXZMBAIAZJ0942-60-72N75:48:19 [facility] 2022-11-19 18:14:00 [id number]/HZ a9/W9kE1UmIT8UwCSweKLve3yK3Fi DGj+Tlb2B1O9tjXqBwl4HgkaBDM6444-12-27E85:14:00 [facility] ([facility])Discharge SummaryREPORT#:[id number] REPORT STATUS: SignedDATE:11/19/22 TIME: 1813 PATIENT: MATHEW CASTILLO UNIT #: [id number]#: [id number] [address] [birth year] AGE: 62 SEX: M ATTEND: Salinas Alba AUTHOR: Salinas Alba MD * ALL edits or amendments must be made on the electronic/computer document * PCP PCPPCP:PCP: No Primary or Family PhysicianATTEND PHYS: Salinas Alba MD Discharge to: home General InformationProblem List/A P: 1. Rupture of ureter Date of admission:Observation Start Date: Date of admission: 10/16/22 Discharge date: 10/26/22Admission diagnosis:1. Abdominal [...] last medical history of, BPH, transferred from [place] for urology evaluation and treatment secondary to possible ruptured ureter. As per patient his abdomen was distended for at least for 2 days and hewas having difficulty urinating. Patient presented to outside facility. Imagingrevealed severe bilateral hydronephrosis with evidence of active urine extravasation and large amount of urine in the bladder pushing all the way up tothe abdomen. As per patient's daughter about 3 L of fluid was removed within 10minutes of Black insertion. Patient reported he had been experiencing urinary hesitancy for the [...] tenderness, RUQ normal bowel soundsGenitourinary: foleyExtremities: moves all, no edema-all extremities, normal capillary refill, normal range of motion, normal sensory, normal motor functionNeuro/AGRICULTURAL AIRCRAFT PILOT: alert, oriented X 3Skin: dry, intact, no [...] H Calcium (8.0 - 10.5 mg/dL) 8.1 Imaging:PROCEDURE INFORMATION: [...] Unremarkable. IMPRESSION: No sonographic evidence for DVT Discharge Instructions PCPPCP:PCP: No Primary or Family PhysicianATTEND PHYS: Salinas Alba MD )( Discharge to: Home/Self Care Discharge InstructionsAdditional Discharge Routines: PCP Follow-Up, Building Code Administrator Follow-Up)( Diet: Regular Follow-up AppointmentsPCP follow up: PCP: Yumiko Geller MD PCP follow up timeframe: In 5 days Special instructions:CAN FU WITH OWN PCPAttending Physician: Attending Physician: Salinas Alba MD Attending physician follow up timeframe: In 1-2 weeks Special instructions:CALL TO SCHEDULE AN APPOINTMENTConsulting provider 1: Provider 1: Dave Jones MD Specialty: Urology Special instructions:FOR REMOVAL OF BLACK at [address] [facility] #:[id number] OF REPORTDSDischarge jwwrlxz3986-98-50B53:14:00G.OHYI32810664-3542KQLe ailable for patient cnbzXTKMRBBOBWNVGX3668-94-39K47:32:51 [facility] 2022-10-26 20:52:00 [id number] aoXbrOo+EnndJQNmPtDOQuMp+1/fm 63Z7O7DgnhsOV6Opv8WViTBdYBA7805-11-51V70:52:[address] [place], [place] [address] PATIENT NAME: MATHEW CASTILLO ADMIT DATE: 10/16/22ACCOUNT NO: [id number] ROOM NO: [place] AGE: 62 REPORT TYPE: PROGRESS NOTE SEX: M ADMITTING PHYSICIAN:Salinas Alba MD ATTENDING PHYSICIAN:Salinas Alba MD DATE: 10/25/2022 SUBJECTIVE: The patient examined, chart reviewed, events of last 24 hoursnoted. The patient clinically is doing fair, remains awake and comfortable. Nonew problems reported. Remains afebrile. No nausea, vomiting reported. Nodiarrhea reported. Continues to have indwelling Lback catheter in place. CURRENT MEDICATIONS: Include benztropine, [...] The patient has mild suprapubic areatenderness. No hepatosplenomegaly. Bowel sounds are normoactive. Has minimaltenderness at the renal angles bilaterally.GENITOURINARY: The patient has indwelling Black catheter in place. Thecatheter appears to be working fine and has clear urine and being drained intothe bag.EXTREMITIES: Both calves are soft. No calf tenderness. No pedal edema.Peripheral pulses are faintly palpable bilaterally.SKIN: The patient's peripheral IV sites are clean without any evidence ofphlebitis. The lower abdominal discomfort has improved. He has an indwelling Black catheter in place. LABORATORY DATA: WBC is stable around 15,000 with hemoglobin of 13, hematocritof 39, platelet count is 421. Serum sodium is 138, potassium 4.0, chloride 108,bicarbonate 27, glucose 80, BUN 14, creatinine 0.9, estimated GFR is 96, calciumis 7.8. PATIENT NAME: MTAHEW CASTILLO ASSESSMENT AND PLAN: The patient with multiple comorbidities was admittedthrough Emergency Room where he was transferred from [place] with acuteurinary retention. He had 3 liters of urine in the bladder and had Foleycatheter in place. The patient was evaluated by Urology Service and heclinically has shown improvement in his condition with IV antibiotics. He alsohad episode of fever and leukocytosis, which improved with changing antibioticsto Zosyn IV. His antibiotics have been discontinued. Clinically, he seems rebeca doing fairly well. We will keep him off antibiotics and monitor him closelyfor any new development. Discussed with the patient's nursing staff. Dictated By: Skip Jaffe MD Date Dictated: 10/26/2022 20:52:41Date Transcribed: 10/26/2022 21:14:58HA/JORGE/Marine #: [id number] ID: [id number] Authenticated and Edited by Skip Jaffe MD On 11/02/22 2:24:00 AM at 0323 PATIENT NAME: MATHEW CASTILLO sygr7443-86-42D68:14:00G.[id number] ble for patient mwjzTFDLQENMQBKDEE1809-42-40Q93:24:01 [facility] 2022-10-26 19:14:00 [id number] iuGefWfaLAIGUwsReLcW6Hk8OJbzO 0Y1DatAyQUOMZjuQU5bQmQB1mF96310-01-78P95:14:00 [facility])Internal Medicine Prog. NoteREPORT#:[id number] REPORT STATUS: SignedDATE:10/26/22 TIME: 1913 PATIENT: MATHEW CASTILLO UNIT #: [id number]#: [id number] [address] [birth year] AGE: 62 SEX: M ATTEND: Salinas Alba I [facility] AUTHOR: Sofia Cheng PLASTIC DIE MAKER APPRENTICE * ALL edits or amendments must be made on the electronic/computer document * SubjectiveChief complaint:Abdominal distention, hydronephrosisHPI:62-year-old male with last medical history of, BPH, transferred from [place] for urology evaluation and treatment secondary to possible ruptured ureter. As per patient his abdomen was distended for at least for 2 days and hewas having difficulty urinating. Patient presented to outside facilityImaging revealed severe [...] urologist. Patient deniesfever, chills, dysuria, hematuria, or other associated symptoms. Patient deniesshortness of breath, chest pain, nausea, vomiting, diarrhea, constipation.Admission vital signs blood pressure 146/78, pulse 92, respiration 18, temperature 37.1, [...] palpitations. GI: Reports: abdominal pain. Denies: nausea, vomiting. [...] Result Date Time Pulse Ox 97 10/26 170 B/P 112/69 10/26 1701 B/P Mean 83.3 10/26 1701 O2 Delivery Room air 10/26 1700 Temp 37.2 10/26 170 Pulse 90 10/26 170 Resp 15 10/26 1701 PATIENT WEIGHT: Weight (lb): Weight (oz): Weight [...] 10 MG Q6H PRN PRN IV Ondansetron HCl [...] tenderness, RUQ normal bowel soundsGenitourinary: foleyExtremities: moves all, no edema-all extremities, normal capillary refill, normal range of motion, normal sensory, normal motor functionNeuro/AGRICULTURAL AIRCRAFT PILOT: alert, oriented X 3Skin: dry, intact, no gross abnormalitiesPsychiatry: no hallucinations, normal moodProblem List/A P: 1. Rupture of ureter Free Text DxA P NotesFree text DxA P notes:Assessment:62-year-old male with last medical history of, BPH, transferred from [place] for urology evaluation and treatment secondary to possible ruptured ureter. As per patient his abdomen was distended for at least for 2 days and hewas having difficulty urinating. Patient presented to outside facilityImaging revealed severe [...] neededRepeat labsFurther recommendation based on patient's clinical cinwka8410/17/2022Vital signs within normal limitsHypokalemia 3.2, hypomagnesemia 1.50Renal [...] focal consolidation. Consultants evaluations notedElectrolyte control replace magnesiumStarted on IV antibiotic ZosynConsult placed to Dr. Jaffe for patients UTITroponin IBlood precaution, glycemic controlFollow-up EKG, labs, continue medications and supportive care10/21/2022OC glucose is controlledD-dimer 5949Hypokalemia 3.0, hypomagnesemia 1.50, hypocalcemia 7.3Blood culture shows no growth after 48 hoursECG: Normal sinus rhythmNo evidence of deep vein thrombosisID has seen the patient. Continue empiric IV antibiotics-Zosyn, tamsulosin p.o.for now.Continue electrolyte control replace potassium and magnesiumPain control, glycemic controlFollow-up electrolytes and labs, continue medications and abfxodp6810/22/2022Vital signs within normal limits, POC glucose is controlledHypocalcemia 7.8, hypomagnesemia 1.72No sonographic evidence for DVTBlood culture shows no [...] explained to patient's daughterContinue with current medicationsFall pqvddjygnu05/20/2023Stable, POC glucose 154Patient with Black to gravity, tolerating p.o. intakeNephro is following. On tamsulosin p.o.Continue pain control, glycemic control, fall precautionContinue medications and present care10/25/2022Hypoglycemia 7.8Blood culture shows no growth after 5 daysPatient has no new complaintsFoley to gravity with good urine output. Nephro is followingConsultants evaluations notedstill on tamsulosin p.o.Continue pain control, glycemic controlFall precaution, continue medications and supportive care at 2225 at 0830 RPT #:[id number] OF REPORTPRProgress fnwe0826-12-20G29:14:00G.EJDS06953244-5359ZPOhysz able for patient nrisQHCNWIEELNPFDM3133-94-54M12:25:27 [facility] 2022-10-26 13:41:00 [id number] rTnjciplY7zt0MxBtD1urh4cV5ugu XEr47QVIlxDDCpp9oUU7qha0W5p0298-20-80Y70:41:00 [facility]Neph[facility] Progress NoteREPORT#:[id number] REPORT STATUS: SignedDATE:10/26/22 TIME: 134 PATIENT: MATHEW CASTILLO UNIT #: [id number]#: [id number] [address] [birth year] AGE: 62 SEX: M ATTEND: Salinas Alba I MDADM AUTHOR: Carmen Kemp * ALL edits or amendments must be made on the electronic/computer document * Carmen Kemp 10/26/22 1341:SubjectiveChief complaint:Concern for ruptured ureterHPI:The patient seen and examined. Resting in bed, tolerating PO intake w/o any issue. Black to gravity, good UOP. Review of SystemsROS comments:A 12 point review of [...] 10 MG Q6H PRN PRN IV Ondansetron HCl [...] has been imported from the dietitian's assessment. BMI Calculated: 22.1Nutrition related diagnosis: Nutrition diagnosis details: Nutrition problem: Nutrition etiology: Nutrition signs and symptoms: Nutrition prescription: Dietitian name: Assessment completed: Physical ExamGeneral appearance: alert, awake, no acute distressHead/eyes: atraumatic, clear cornea, normal conjunctiva/sclera, normocephalicENT: normal noseNeck: supple/no meningismusCardiovascular: normal heart soundsRespiratory: decreased breath sounds, wheezes, aerating well, no distressAbdomen: non-tender, softGenitourinary: urinary catheter, urineExtremities: no edema ResultsFindings/Data:Laboratory Tests 10/26 10/26 10/26 10/25 1158 0748 [...] (8.0 - 10.5 mg/dL) 8.1 Diagnosis, Assessment PlanFree Text A P:Assessment and Plan: CHANDRA (Resolved)-Renal function improved and wnl, black to gravity, s/p bicarb gtt.-2/2 post-obstrucitve uropathy, monitor for post-obstructive diuresis. -UA, urine lytes requested and noted, no significant proteinuria.-Per Urology note: Reportedly the patient had 3L of urine in his bladder. CT abdomen from [place] showed that the patient has a very [...] diuresis and electrolyte imbalance Urinary Retention/BPH-Black to gravity, Urology following, on Tamsulosin-Per Urology note: Reportedly the patient had 3L of urine in his bladder. CT abdomen from [place] showed that the patient has a very [...] on PRN IV hydralazine Schizophrenia-Home medications resumed Fever-Low grade fever on 10/19/22, blood cx (10/20/22): NGTD, B/L LE venous doppler (10/21/22): Negative for DVT, on empiric abx per primary team. Discussed the plan with the patient, patient's nurse and Dr. Koehler. Toby Koehler 10/26/22 1812:Attestations Physician AttestationReviewed findings plan:Patient examined Renal function improved and wnl, black to gravity, -2/2 post-obstrucitve uropathy, replace electrolytes as needed, S/P antibioticscontinue flomax, Agree with above A/P at 1342 at 1813 RPT #:[id number] OF REPORTPRProgress eiun2404-65-24K81:41:00G.OWOW72192147-7345BSKlcev able for patient lmjbNCVOHQTMSFERTC6842-70-83U75:42:46 [facility] 2022-10-25 21:28:00 [id number] 5+cKUpIxfhV1Y8AYMLYtoOL38y+y5 X7DIBYHYbsVPQcjCk71kt4zl1jO0155-05-84W80:28:00 [facility] ([facility])Infectious Dis. Progress NoteREPORT#:[id number] REPORT STATUS: SignedDATE:10/25/22 TIME: 2127 PATIENT: MATHEW CASTILLO UNIT #: [id number]#: [id number] ROOM/BED: 6630-1DOB: [birth year] AGE: 62 SEX: M ATTEND: Salinas Alba I [facility] AUTHOR: Skip Jaffe MD * ALL edits or amendments must be made on the electronic/computer document * SubjectiveInternal recordPatient examined, chart reviewed, events of last 24 hours noted. See full dictated progress note for further details. ASSESSMENT AND PLAN: Patient clinically is doing about the same. Remains awake and alert. Resting comfortably in bed. Denies any new complaints. Remains afebrile. Recent complicated urinary tract infection with [...] no evidence of DVT in thelower extremities. Fluctuating leukocytosis likely secondary to noninfectious causes. IV antibiotics discontinued. Closely monitor for any new nosocomial acquired infection. at 0256 RPT #:[id number] OF REPORTPRProgress egtu6694-61-26R65:28:00G.WNZY86948840-3257HIZihpd able for patient txxkNPWPFJFIYEKOQD1298-94-07X35:57:01 [facility] 2022-10-25 19:13:00 [id number] 3d20venTnkfVJFgHFR64rj/nZAFaW zRjOXuq/lnbkFFa78sWT9SCxld69724-87-75L18:13:00 [facility] ([facility]ENTERNephrology Progress NoteREPORT#:[id number] REPORT STATUS: SignedDATE:10/25/22 TIME: 1912 PATIENT: MATHEW CASTILLO UNIT #: [id number]#: [id number] [address] [birth year] AGE: 62 SEX: M ATTEND: Salinas Alba I [facility] AUTHOR: Toby Koehler MD * ALL edits [...] 10 MG Q6H PRN PRN IV Ondansetron HCl [...] catheter, urineExtremities: no edema ResultsFindings/Data:Laboratory Tests 10/25 10/25 10/25 10/25 10/24 1634 [...] (Auto) (14.0 - 32.0 %) 10.6 L Glascock % (Auto) (4.8 - 9.0 %) 4.4 L Eos % (Auto) (0.3 - 3.7 %) 2.4 Baso % (Auto) (0.0 - 2.0 %) 0.5 Neut # (Auto) (2.0 - 7.6 x10 3/uL) 12.30 H Lymph # (Auto) (1.0 - 3.8 x10 3/uL) 1.60 Glascock # (Auto) (0.1 - 0.8 x10 3/uL) [...] urine in his bladder. CT abdomen from [place] showed that the patient has a very [...] diuresis and electrolyte imbalance Urinary Retention/BPH-Black to gravity, Urology following, on Tamsulosin-Per Urology note: Reportedly the patient had 3L of urine in his bladder. CT abdomen from [place] showed that the patient has a very [...] on PRN IV hydralazine Schizophrenia-Home medications resumed Fever-Low grade fever on 10/19/22, blood cx (10/20/22): NGTD, B/L LE venous doppler (10/21/22): Negative for DVT, on empiric abx per primary team. at 1914 RPT #:[id number] OF REPORTPRProgress eruf5546-97-74T20:13:00G.[id number] able for patient hixsAOGLLXHLQTNULV7312-75-00T75:14:52 [facility] 2022-10-25 19:12:00 [id number] eYF0Sah/zFJlR80YHtbwwzxmEy3WG kzubN9wQ6rn7Ei0xbs2LJkqQmmH7750-74-12T72:12:00 [facility])Internal Medicine Prog. NoteREPORT#:[id number] REPORT STATUS: SignedDATE:10/25/22 TIME: 1911 PATIENT: MATHEW CASTILLO UNIT #: [id number]#: [id number] [place] [facility] [place]DOB: [birth year] AGE: 62 SEX: M ATTEND: Salinas Alba I [facility] AUTHOR: Sofia Cheng NP * ALL edits or amendments must be made on the electronic/computer document * SubjectiveChief complaint:Abdominal distention, hydronephrosisHPI:62-year-old male with last medical history of, BPH, transferred from [place] for urology evaluation and treatment secondary to possible ruptured ureter. As per patient his abdomen was distended for at least for 2 days and hewas having difficulty urinating. Patient presented to outside facilityImaging revealed severe [...] urologist. Patient deniesfever, chills, dysuria, hematuria, or other associated symptoms. Patient deniesshortness of breath, chest pain, nausea, vomiting, diarrhea, constipation.Admission vital signs blood pressure 146/78, pulse 92, respiration 18, temperature 37.1, [...] palpitations. GI: Reports: abdominal pain. Denies: nausea, vomiting. [...] 10 MG Q6H PRN PRN IV Ondansetron HCl (ZOFRAN) 4 MG Q4H PRN PRN IV Benztropine Mesylate (COGENTIN) 1 MG DAILY PO Dextrose/Water (DEXTROSE 10% IN WATER) 125 ML ASDIR PRN IV (CKD) Dextrose/Water (DEXTROSE 10% IN WATER) 250 ML ASDIR PRN IV (CKD) Glucagon (GLUCAGON) 1 MG ASDIR PRN IM Insulin Human Lispro (HUMALOG) 0 AC HS SUBQ ResultsFindings/Data:Laboratory Tests 10/25/22 0420:[Embedded Image Not Available]Laboratory Tests 10/25 10/25 10/25 [...] (Auto) (14.0 - 32.0 %) 10.6 L Glascock % (Auto) (4.8 - 9.0 %) 4.4 L Eos % (Auto) (0.3 - 3.7 %) 2.4 Baso % (Auto) (0.0 - 2.0 %) 0.5 Neut # (Auto) (2.0 - 7.6 x10 3/uL) 12.30 H Lymph # (Auto) (1.0 - 3.8 x10 3/uL) 1.60 Glascock # (Auto) (0.1 - 0.8 x10 3/uL) [...] tenderness, RUQ normal bowel soundsGenitourinary: foleyExtremities: moves all, no edema-all extremities, normal capillary refill, normal range of motion, normal sensory, normal motor functionNeuro/AGRICULTURAL AIRCRAFT PILOT: alert, oriented X 3Skin: dry, intact, no gross abnormalitiesPsychiatry: no hallucinations, normal moodProblem List/A P: 1. Rupture of ureter Free Text DxA P NotesFree text DxA P notes:Assessment:62-year-old male with last medical history of, BPH, transferred from [place] for urology evaluation and treatment secondary to possible ruptured ureter. As per patient his abdomen was distended for at least for 2 days and hewas having difficulty urinating. Patient presented to outside facilityImaging revealed severe [...] neededRepeat labsFurther recommendation based on patient's clinical gmzpie7210/17/2022Vital signs within normal limitsHypokalemia 3.2, hypomagnesemia 1.50Renal [...] focal consolidation. Consultants evaluations notedElectrolyte control replace magnesiumStarted on IV antibiotic ZosynConsult placed to Dr. Jaffe for patients UTITroponin IBlood precaution, glycemic controlFollow-up EKG, labs, continue medications and supportive care10/21/2022OC glucose is controlledD-dimer 5949Hypokalemia 3.0, hypomagnesemia 1.50, hypocalcemia 7.3Blood culture shows no growth after 48 hoursECG: Normal sinus rhythmNo evidence of deep vein thrombosisID has seen the patient. Continue empiric IV antibiotics-Zosyn, tamsulosin p.o.for now.Continue electrolyte control replace potassium and magnesiumPain control, glycemic controlFollow-up electrolytes and labs, continue medications and lydnckl1010/22/2022Vital signs within normal limits, POC glucose is controlledHypocalcemia 7.8, hypomagnesemia 1.72No sonographic evidence for DVTBlood culture shows no [...] explained to patient's daughterContinue with current medicationsFall sbdoemntas82/20/2023Stable, POC glucose 154Patient with Black to gravity, tolerating p.o. intakeNephro is following. On tamsulosin p.o.Continue pain control, glycemic control, fall precautionContinue medications and present care10/25/2022Hypoglycemia 7.8Blood culture shows no growth after 5 daysPatient has no new complaintsFoley to gravity with good urine output. Nephro is followingConsultants evaluations notedstill on tamsulosin p.o.Continue pain control, glycemic controlFall precaution, continue medications and supportive care at 2224 at 0830 RPT #:[id number] OF REPORTPRProgress ttbw1038-27-40F52:12:00G.RPHJ14027479-9140IYCowbp able for patient qsqmCKTHVPOOEMZTAJ6535-85-47U39:24:26 [facility] 2022-10-25 10:44:00 [id number] nTJkqe0Q6vbtObQE5+aBVRu3q4fIj OQd3o+ZB/DFERP91Lc44Up1SpXp2960-24-35V52:44:91727 1-[address] [place] [address] PATIENT NAME: MATHEW CASTILLO ADMIT DATE: 10/16/22ACCOUNT NO: [id number] ROOM NO: G.6630 AGE: 62 REPORT TYPE: PROGRESS NOTE SEX: M ADMITTING PHYSICIAN:Salinas Alba MD ATTENDING PHYSICIAN:Salinas Alba MD DATE: 10/24/2022 SUBJECTIVE: The patient examined. Chart reviewed. Events of last 24 hoursnoted. The patient clinically is doing fair. He [...] The patient has mild suprapubic areatenderness. No hepatosplenomegaly. Bowel sounds are normoactive. Has minimaltenderness at the renal angles bilaterally.GENITOURINARY: The patient has indwelling Black catheter in place. Thecatheter appears to be working fine and has clear urine and being drained intothe bag.EXTREMITIES: Both calves are soft. No calf tenderness. No pedal edema.Peripheral pulses are faintly palpable bilaterally.SKIN: The patient's peripheral IV sites are clean without any evidence ofphlebitis. The lower abdominal discomfort has improved. He has an indwelling Black catheter in place. LABORATORY DATA: No new laboratory studies available to review for today. Thepatient's blood cultures x2 done on October 20 are negative so far at 4 days ofincubation. ASSESSMENT AND PLAN: The patient with multiple comorbidities including PATIENT NAME: MATHEW CASTILLO prostatic symptoms for over 2 years, was admitted through Emergency Roominitially to hospital in [place] with urinary retention of 2 days' durationand was found to have some extravasation of urine in the peritoneal cavity. Thepatient was treated with IV antibiotics and had a Black catheter inserted andabout 3 liters of urine was drained and the Black was left in place and [facility].The patient was evaluated by Dr. Dave Jones and is being managedconservatively at the present time. The patient initially showed improvement inhis condition and subsequently he had developed low-grade temperature and markedleukocytosis of around 19,000. He had his antibiotics changed to IV Zosyn.Clinically, he never looked toxic and there is a possibility that fever andleukocytosis could have been secondary to noninfectious causes. He had furtherworkup done and was found to have elevated D-dimer; however, bilateral lowerextremity venous Doppler studies were negative for deep vein thrombosis. Thepatient otherwise remains hemodynamically stable and he is making progress,continues to be afebrile. He is due to finish his antibiotics tomorrow. Wewill for now, keep him on the antibiotic and if his blood cultures are negativeafter 5 days of incubation, then we will consider discontinuation of hisantibiotics tomorrow. Discussed with the patient's nursing staff.Dictated By: Elizabeth Kelly Dictated: 10/25/2022 10:44:58Date Transcribed: 10/25/2022 11:24:45HA/Yulisa #: [id number] ID: [id number] Authenticated and Edited by Skip Jaffe MD On 11/02/22 2:23:50 AM at 0323 PATIENT NAME: MATHEW CASTILLO bsxu7627-06-21F16:24:00G.[id number] ble for patient zkdxGYIWMGPNGVLUEH9658-05-08E73:24:12 [facility] 2022-10-24 22:59:00 [id number] hb8vbwS0EMUH0nazcF+H4tYXt1pJc 5Seg5DN4F3vC0dvv248e4Mu+RMd2010-21-24O88:59:00 [facility])Internal Medicine Prog. NoteREPORT#:[id number] REPORT STATUS: SignedDATE:10/24/22 TIME: 2258 PATIENT: MATHEW CASTILLO UNIT #: [id number]#: [id number] [address] [birth year] AGE: 62 SEX: M ATTEND: Salinas Alba I [facility] AUTHOR: Sofia Cheng NP * ALL edits or amendments must be made on the electronic/computer document * SubjectiveChief complaint:Abdominal distention, hydronephrosisHPI:62-year-old male with last medical history of, BPH, transferred from [place] for urology evaluation and treatment secondary to possible ruptured ureter. As per patient his abdomen was distended for at least for 2 days and hewas having difficulty urinating. Patient presented to outside facilityImaging revealed severe [...] urologist. Patient deniesfever, chills, dysuria, hematuria, or other associated symptoms. Patient deniesshortness of breath, chest pain, nausea, vomiting, diarrhea, constipation.Admission vital signs blood pressure 146/78, pulse 92, respiration 18, temperature 37.1, [...] palpitations. GI: Reports: abdominal pain. Denies: nausea, vomiting. [...] stress, suicidal ideation. Objective GeneralVS/I O:Laboratory Tests 10/23/22 0623:[Embedded Image Not Available]Chemistry: 10/24 1652 0721 Chemistry POC Glucose (70 - 110 MG/DL) 154 H 73 87 Home Medications: Medication Dose/Rte/Freq Days Qty Entered Last Max Daily Dose Reviewed BENZTROPINE 1 MG PO DAILY 10/16/22 10/16/22 Strength: 0.5 MG TAB 0923 0925 HALOPERIDOL (HALDOL) 10 MG PO BID 10/16/22 10/16/22 Strength: 10 MG TAB 0925 25 Current Hospital Medications:Anti-Infective Agents Sig/Mark Start time [...] Admin Cholecalciferol 1,000 INTL.UNITS DAILY 10/18 09 CKD 10/24 (VITAMIN D) PO 11/17 0859 [...] 1500 Intake Total 720 250 Output Total 2350 Balance -1630 250 Intake, Oral 720 250 Number 0 Bowel Movements Output, Urine 2350 Current Medications Sig/Mark Start time Last Medication Dose Route Stop Time Status Admin Piperacillin Sod/ 3.375 GM Q8H 10/20 0100 AC 10/24 Tazobactam Sod IV 10/25 0059 1710 Sodium Chloride 100 ML Cholecalciferol 1,000 INTL.UNITS DAILY 10/18 0900 CKD 10/24 PO 11/17 0859 0942 Tamsulosin [...] Mean 80.3 10/24 1949 Temp 37.1 10/24 1950 Pulse 72 10/24 1950 Resp 14 10/24 1950 O2 Delivery Nasal cannula 10/24 1656 24 hour I O ending at 0700: [...] tenderness, RUQ normal bowel soundsGenitourinary: foleyExtremities: moves all, no edema-all extremities, normal capillary refill, normal range of motion, normal sensory, normal motor functionNeuro/AGRICULTURAL AIRCRAFT PILOT: alert, oriented X 3Skin: dry, intact, no gross abnormalitiesPsychiatry: no hallucinations, normal moodProblem List/A P: 1. Rupture of ureter Free Text DxA P NotesFree text DxA P notes:Assessment:62-year-old male with last medical history of, BPH, transferred from [place] for urology evaluation and treatment secondary to possible ruptured ureter. As per patient his abdomen was distended for at least for 2 days and hewas having difficulty urinating. Patient presented to outside facilityImaging revealed severe [...] neededRepeat labsFurther recommendation based on patient's clinical baaqmy4910/17/2022Vital signs within normal limitsHypokalemia 3.2, hypomagnesemia 1.50Renal [...] focal consolidation. Consultants evaluations notedElectrolyte control replace magnesiumStarted on IV antibiotic ZosynConsult placed to Dr. Jaffe for patients UTITroponin IBlood precaution, glycemic controlFollow-up EKG, labs, continue medications and supportive care10/21/2022OC glucose is controlledD-dimer 5949Hypokalemia 3.0, hypomagnesemia 1.50, hypocalcemia 7.3Blood culture shows no growth after 48 hoursECG: Normal sinus rhythmNo evidence of deep vein thrombosisID has seen the patient. Continue empiric IV antibiotics-Zosyn, tamsulosin p.o.for now.Continue electrolyte control replace potassium and magnesiumPain control, glycemic controlFollow-up electrolytes and labs, continue medications and eitozan3410/22/2022Vital signs within normal limits, POC glucose is controlledHypocalcemia 7.8, hypomagnesemia 1.72No sonographic evidence for DVTBlood culture shows no [...] explained to patient's daughterContinue with current medicationsFall jmbtbzifhp73/20/2023Stable, POC glucose 154Patient with Black to gravity, tolerating p.o. intakeNephro is following. On tamsulosin p.o.Continue pain control, glycemic control, fall precautionContinue medications and present care at 2223 at 0830 RPT #:[id number] OF REPORTPRProgress ckbh7003-06-69Q54:59:00G.KATL87006958-1263TCSticl able for patient tbbjECTJGMXPOBLIAB1789-53-26X51:24:17 [facility] 2022-10-24 19:41:00 [id number] wbWD1RXk/7apuZY/TiUrdtOr27bYj Hc9KZPWKFu6RkvZIhmDzG6pJ38R7956-90-85M65:41:00 [facility] ([facility])Infectious Dis. Progress NoteREPORT#:[id number] REPORT STATUS: SignedDATE:10/24/22 TIME: 1940 PATIENT: MATHEW CASTILLO UNIT #: [id number]#: [id number] ROOM/BED: 6630-1DOB: [birth year] AGE: 62 SEX: M ATTEND: Salinas Alba I [facility] AUTHOR: Skip Jaffe MD * ALL edits or amendments must be made on the electronic/computer document * SubjectiveInternal recordPatient examined, chart reviewed, events of last 24 hours noted. See full dictated progress note for further details. ASSESSMENT AND PLAN: No new development. Patient remains awake and comfortable. No new issues reported. Continues to be [...] patient closely for any diarrhea. at 0316 RPT #:[id number] OF REPORTPRProgress ippp1250-47-70L94:41:00G.USCZ50585417-7174AXFuizj able for patient cgriHDUYGXFJYFSMVJ9069-42-03L07:16:37 [facility] 2022-10-24 19:12:00 [id number] 1o5UEQ661PfHbWqp9+nSXnzIFjnKL KIizj6lepDxGNm4JPDcKs3jGuIl1722-11-48Q27:12:54511 0-[address] [address] PATIENT NAME: MATHEW CASTILLO ADMIT DATE: 10/16/22ACCOUNT NO: [id number] ROOM NO: 6630 AGE: 62 REPORT TYPE: PROGRESS NOTE SEX: M ADMITTING PHYSICIAN:Salinas Alba MD ATTENDING PHYSICIAN:Salinas Alba MD DATE: 10/23/2022 SUBJECTIVE: The patient examined. Chart reviewed. Events of last 24 hoursnoted. The patient clinically is not much changed. Remains [...] The patient has mild suprapubic areatenderness. No hepatosplenomegaly. Bowel sounds are normoactive. Has minimaltenderness at the renal angles bilaterally.GENITOURINARY: The patient has indwelling Black catheter in place. Thecatheter appears to be working fine and has clear urine and being drained intothe bag.EXTREMITIES: Both calves are soft. No calf tenderness. No pedal edema.Peripheral pulses are faintly palpable bilaterally.SKIN: The patient's peripheral IV sites are clean without any evidence ofphlebitis. The lower abdominal discomfort has improved. LABORATORY DATA: Serum sodium is 138, potassium 3.8, chloride 107, sgjehzvtdld28, glucose 98. BUN 11, creatinine 1.0, estimated GFR is 85, calcium is 7.6,magnesium 1.53. CT angiogram of chest with PE protocol done today shows no evidence of pulmonary PATIENT NAME: MATHEW CASTILLO embolism, extensive colonic wall thickening of the visualized splenic flexure.Blood cultures are negative so far at 3 days of incubation. ASSESSMENT AND PLAN: The patient with multiple medical problems was initiallyadmitted to hospital in [place] where he had presented with urinaryretention. The patient was found to have 3 liters of urine in the bladder. Hehad a Black catheter inserted and subsequently was transferred to [facility] for urology evaluation. He was initially [...] negative and his CT of chest with PEprotocol is also negative. The patient clinically remains hemodynamicallystable. He will be continued on IV Zosyn until 10/25/2022. Discussed with thepatient's nursing staff.Dictated By: Elizabeth Kelly Dictated: 10/24/2022 19:12:07Date Transcribed: 10/24/2022 19:51:44HA/Concepcion #: [id number] ID: [id number] Authenticated and Edited by Skip Jaffe MD On 11/02/22 2:23:34 AM at 0323 PATIENT NAME: MATHEW CASTILLO wypp0614-50-47Y35:51:00G.[id number] ble for patient zjiwXUNWJDOCFKKSNC9569-03-54P21:24:12 [facility] 2022-10-24 16:08:00 [id number] gINX5NQEH4MvcR/sMaFTNPE/[place]/s f3STW/aeeRx7olYkRCRZJwTK1D53473-97-77U19:08:00 [facility] ([facility])Nephrology Progress NoteREPORT#:[id number] REPORT STATUS: SignedDATE:10/24/22 TIME: 160 PATIENT: MATHEW CASTILLO UNIT #: [id number]#: [id number] [address] [birth year] AGE: 62 SEX: M ATTEND: Salinas Alba I [facility] AUTHOR: Carmen Kemp * ALL edits or amendments must be made on the electronic/computer document * Carmen Kemp 10/24/22 1608:SubjectiveChief complaint:Concern for ruptured ureterHPI:The patient seen and examined. Resting in bed, tolerating PO intake w/o any issue. Black to gravity, good UOP. Review of SystemsROS comments:A 12 point review of systems obtained and is negative unless specified in [...] 10 MG Q6H PRN PRN IV Ondansetron HCl [...] has been imported from the dietitian's assessment. BMI Calculated: 22.1Nutrition related diagnosis: Nutrition diagnosis details: Nutrition problem: Nutrition etiology: Nutrition signs and symptoms: Nutrition prescription: Dietitian name: Assessment completed: Physical ExamGeneral appearance: alert, awake, no acute distressHead/eyes: atraumatic, clear cornea, normal conjunctiva/sclera, normocephalicENT: normal noseNeck: supple/no meningismusCardiovascular: normal heart soundsRespiratory: decreased breath sounds, wheezes, aerating well, no distressAbdomen: non-tender, softGenitourinary: urinary catheter, urineExtremities: no edema ResultsFindings/Data:Laboratory Tests 10/24 Chemistry POC Glucose (70 - 110 MG/DL) 87 139 H Diagnosis, Assessment PlanFree Text A P:Assessment and Plan: CHANDRA (Resolved)-Renal function improved and wnl, black to gravity, s/p bicarb gtt.-2/2 post-obstrucitve uropathy, monitor for post-obstructive diuresis. -UA, urine lytes requested and noted, no significant proteinuria.-Per Urology note: Reportedly the patient had 3L of urine in his bladder. CT abdomen from [place] showed that the patient has a very [...] diuresis and electrolyte imbalance Urinary Retention/BPH-Black to gravity, Urology following, on Tamsulosin-Per Urology note: Reportedly the patient had 3L of urine in his bladder. CT abdomen from [place] showed that the patient has a very [...] on PRN IV hydralazine Schizophrenia-Home medications resumed Fever-Low grade fever on 10/19/22, blood cx (10/20/22): NGTD, B/L LE venous doppler (10/21/22): Negative for DVT, on empiric abx per primary team. Discussed the plan with the patient, patient's nurse, and . Toby Koehler 10/24/222124:Attestations Physician AttestationReviewed findings plan:Patient examined Renal function improved and wnl, black to gravity, -2/2 post-obstrucitve uropathy, replace electrolytes as needed, emperic antibiotics per admitting team, agree with above A/P at 1740 at 2124 RPT #:[id number] OF REPORTPRProgress icqa3334-37-73U35:08:00G.BXYW29481972-6517FJIjnsh able for patient ekmiTGFXWFTUEUWKJB7121-05-93J88:40:54 [facility] 2022-10-23 21:33:00 [id number] amR7Wc1Cs3gaMSVxNFBhJCYKwnBVn 5BFEfodi9NUybRyoAs5ezFqUHGf2330-10-92B38:33:00 [facility] Prog. NoteREPORT#:[id number] REPORT STATUS: SignedDATE:10/23/22 TIME: 2132 PATIENT: MATHEW CASTILLO UNIT #: [id number]#: [id number] [address] [birth year] AGE: 62 SEX: M ATTEND: Salinas Alba MDA AUTHOR: Sofia Cheng NP * ALL edits or amendments must be made on the electronic/computer document * SubjectiveChief complaint:Abdominal distention, hydronephrosisHPI:62-year-old male with last medical history of, BPH, transferred from [place] for urology evaluation and treatment secondary to possible ruptured ureter. As per patient his abdomen was distended for at least for 2 days and hewas having difficulty urinating. Patient presented to outside facilityImaging revealed severe [...] urologist. Patient deniesfever, chills, dysuria, hematuria, or other associated symptoms. Patient deniesshortness of breath, chest pain, nausea, vomiting, diarrhea, constipation.Admission vital signs blood pressure 146/78, pulse 92, respiration 18, temperature 37.1, [...] palpitations. GI: Reports: abdominal pain. Denies: nausea, vomiting. [...] Flow FiO2 Mean Ox Delivery Rate 10/23 1900 [...] GM Q8H 10/20 0100 AC 10/23Tazobactam Sod IV 10/25 0059 1750Sodium Chloride 100 MLCholecalciferol 1,000 INTL.UNITS DAILY 10/18 0900 CKD 10/23 PO 11/17 0859 0932Tamsulosin HCl 0.4 MG PC DIN 10/16 1800 AC 10/23 PO 11/15 1759 1750Acetaminophen 650 MG Q4H PRN PRN 10/16 1345 AC 10/20 PO 11/15 1344 0120Docusate Sodium 100 MG BID PRN PRN 10/16 1345 AC PO 11/15 1344Haloperidol 10 MG BID 10/16 1345 AC 10/23 PO 11/15 1330 2037Hydralazine HCl 10 MG Q6H PRN PRN 10/16 1345 AC IV 11/15 1344Ondansetron HCl 4 MG Q4H PRN PRN 10/16 1345 AC IV 11/15 1344Benztropine Mesylate 1 MG DAILY 10/16 1330 AC 10/23 PO 11/15 1329 0932Dextrose/Water 125 ML [...] M.D.CAT SCAN - CTA CHEST FOR PE 10/23 [...] Room air 10/23 1899 Temp 37.1 10/23 1900 Pulse 69 10/23 1900 Resp 16 10/23 [...] tenderness, RUQ normal bowel soundsGenitourinary: foleyExtremities: moves all, no edema-all extremities, normal capillary refill, normal range of motion, normal sensory, normal motor functionNeuro/AGRICULTURAL AIRCRAFT PILOT: alert, oriented X 3Skin: dry, intact, no gross abnormalitiesPsychiatry: no hallucinations, normal moodProblem List/A P: 1. Rupture of ureter Free Text DxA P NotesFree text DxA P notes:Assessment:62-year-old male with last medical history of, BPH, transferred from [place] for urology evaluation and treatment secondary to possible ruptured ureter. As per patient his abdomen was distended for at least for 2 days and hewas having difficulty urinating. Patient presented to outside facilityImaging revealed severe [...] neededRepeat labsFurther recommendation based on patient's clinical twdnuf4010/17/2022Vital signs within normal limitsHypokalemia 3.2, hypomagnesemia 1.50Renal [...] focal consolidation. Consultants evaluations notedElectrolyte control replace magnesiumStarted on IV antibiotic ZosynConsult placed to Dr. Jaffe for patients UTITroponin IBlood precaution, glycemic controlFollow-up EKG, labs, continue medications and supportive care3POC glucose is controlledD-dimer 5949Hypokalemia 3.0, hypomagnesemia 1.50, hypocalcemia 7.3Blood culture shows no growth after 48 hoursECG: Normal sinus rhythmNo evidence of deep vein thrombosisID has seen the patient. Continue empiric IV antibiotics-Zosyn, tamsulosin p.o.for now.Continue electrolyte control replace potassium and magnesiumPain control, glycemic controlFollow-up electrolytes and labs, continue medications and agtwmyc2810/22/2022Vital signs within normal limits, POC glucose is controlledHypocalcemia 7.8, hypomagnesemia 1.72No sonographic evidence for DVTBlood culture shows no [...] medicationsFall precaution at 0250 at 0842 RPT #:[id number] OF REPORTPRProgress hvax3977-34-33G77:33:00G.LMYR62805493-5842ZEWugsl able for patient srowMZRIPXNQIVMTIZ8553-26-34K66:51:16 [facility] 2022-10-23 18:51:00 [id number] yYymC2N29xCIK5xVhOSQDah9h/gJ1 PzCmubpmNzpXF5wO8ykrgUmcJFM8909-09-87Q08:51:00 [facility] ([facility])Infectious Dis. Progress NoteREPORT#:[id number] REPORT STATUS: SignedDATE:10/23/22 TIME: 1850 PATIENT: MATHEW CASTILLO UNIT #: [id number]#: [id number] [address] [birth year] AGE: 62 SEX: M ATTEND: Salinas Alba I MDADM AUTHOR: Skip Jaffe MD * ALL edits or amendments must be made on the electronic/computer document * SubjectiveInternal recordPatient examined, chart reviewed, events of last 24 hours noted. See full dictated progress note for further details. ASSESSMENT AND PLAN: No significant change in general condition. Patient clinically [...] closely for any diarrhea. at 0256 RPT #:[id number] OF REPORTPRProgress fwsl8883-12-33G57:51:00G.RKTU22890894-1296UUIpvzr able for patient mlsuSVRJSEDBYKJAVF7708-88-84Q14:56:58 [facility] 2022-10-23 18:27:00 [id number] ecxS5PLFaWuDnlL2MFAxO3m8eCvAu +MLHSTxIYk0rxNoWUJ34+hf8N+s7790-21-82K20:27:15480 [address] [place] [address] PATIENT NAME: MATHEW CASTILLO ADMIT DATE: 10/16/22ACCOUNT NO: [id number] ROOM NO: G.6630 AGE: 62 REPORT TYPE: PROGRESS NOTE SEX: M ADMITTING PHYSICIAN:Salinas Alba MD ATTENDING PHYSICIAN:Salinas Alba MD DATE: 10/22/2022 SUBJECTIVE: The patient examined. Chart reviewed. Events of last 24 hoursnoted. The patient clinically is not much changed. He remains awake and alert. Resting comfortably in bed. Denies any new complaints. He is ambulatingwithin the room. Remains afebrile. No nausea or vomiting reported. Nodiarrhea reported. Continues to have indwelling Black catheter in [...] The patient has mild suprapubic areatenderness. No hepatosplenomegaly. Bowel sounds are normoactive. Has minimaltenderness at the renal angles bilaterally.GENITOURINARY: The patient has indwelling Black catheter in place. Thecatheter appears to be working fine and has clear urine and being drained intothe bag.EXTREMITIES: Both calves are soft. No calf tenderness. No pedal edema.Peripheral pulses are faintly palpable bilaterally.SKIN: The patient's peripheral IV sites are clean without any evidence ofphlebitis. LABORATORY DATA: Serum sodium is 139, potassium 4.0, chloride 107, xdlofppydye06, glucose 102, BUN 12, creatinine 1.1, estimated GFR is 75.4, calcium is 7.8,magnesium is 1.72. Blood cultures x2 are negative so far at 48 hours ofincubation. PATIENT NAME: MATHEW CASTILLO ASSESSMENT AND PLAN: The patient with multiple medical problems was initiallyadmitted through the Emergency Room where he was transferred from [facility] because of urinary retention. The patient presented to [facility] with 2 days' history of not able to pass any urine and he was found tohave 3 liters urine in his bladder with some extravasation of urine into theperitoneal cavity. The patient had a Black catheter placed and bladder wasrelieved. He was transferred to [facility] forevaluation by Urology Service. 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 The patient clinically; however, remains hemodynamically stable. Hehad further workup done and inflammatory markers including D-dimer wereelevated; however, his bilateral lower extremity venous Doppler studies werenegative for DVT, but that does not rule out pelvic DVT. Clinically, he remainshemodynamically stable and was started on IV Zosyn empirically, which he isstill receiving and he is due to complete it on 10/25/2022. For now, we willkeep him on the same regimen along with other supportive treatments. DVTprophylaxis as per primary team's orders. Discussed with the patient's nursingstaff. Dictated By: Skip Jaffe MD Date Dictated: 10/23/2022 18:27:31Date Transcribed: 10/23/2022 18:54:06 ESTRADA/Concepcion #: [id number] ID: [id number] Authenticated and Edited by Skip Jaffe MD On 11/02/22 2:23:13 AM at 0225 PATIENT NAME: MATHEW CASTILLO epnh7451-39-28M94:54:00G.KES04273596-3353NIXzxcme ble for patient lcwyJEAVVJNPFJRXCE5739-06-06E14:25:49 [facility] 2022-10-23 13:24:00 [id number] oQzlIukDWl3rcIneAxgqLbacXx2U/ 9+NcXvKgxybwQVydnAJ68y6taaR8588-42-59P98:24:00 [facility] ([facility]Nephrology Progress NoteREPORT#:[id number] REPORT STATUS: SignedDATE:10/23/22 TIME: 132 PATIENT: MATHEW CASTILLO UNIT #: [id number]#: [id number] [address] [birth year] AGE: 62 SEX: M ATTEND: Salinas Alba I [facility] AUTHOR: Carmen Kemp * ALL edits or [...] I O ending at 0700: 10/23 0700 07/18 1900 Intake Total 870 Output Total 1100 [...] 10 MG Q6H PRN PRN IV Ondansetron HCl [...] has been imported from the dietitian's assessment. BMI Calculated: 22.1Nutrition related diagnosis: Nutrition diagnosis details: Nutrition problem: Nutrition etiology: Nutrition signs and symptoms: Nutrition prescription: Dietitian name: Assessment completed: Physical ExamGeneral appearance: alert, awake, no acute distressHead/eyes: atraumatic, clear cornea, normal conjunctiva/sclera, normocephalicENT: normal noseNeck: supple/no meningismusCardiovascular: normal heart soundsRespiratory: decreased breath sounds, wheezes, aerating well, no distressAbdomen: non-tender, softGenitourinary: urinary catheter, urineExtremities: no edema ResultsFindings/Data:Laboratory Tests 10/23 10/23 10/23 10/23 10/22 1622 1133 0825 0623 2006 Chemistry Sodium [...] urine in his bladder. CT abdomen from [place] showed that the patient has a very [...] diuresis and electrolyte imbalance Urinary Retention/BPH-Black to gravity, Urology following, on Tamsulosin-Per Urology note: Reportedly the patient had 3L of urine in his bladder. CT abdomen from [place] showed that the patient has a very [...] on PRN IV hydralazine Schizophrenia-Home medications resumed Fever-Low grade fever on 10/19/22, blood cx (10/20/22): NGTD, B/L LE venous doppler (10/21/22): Negative for DVT, on empiric abx per primary team. Discussed the plan with the patient, patient's nurse, and . Toby Koehler 10/23/22 2252:Attestations Physician AttestationReviewed findings plan:Patient examined Renal function improved and wnl, black to gravity, -2/2 post-obstrucitve uropathy, replace electrolytes as needed, emperic antibiotics per admitting team, agree with above A/P at 1741 at 6033 RPT #:[id number] OF REPORTPRProgress ucvn6217-70-23L91:24:00G.SICG94629412-7938VSMjlnp able for patient cupwCDWSGGHZWAZHNT5758-79-36N13:42:17 [facility] 2022-10-22 18:32:00 [id number] xROslf7hC6ubTOlrd5DjnxpqedAjq hVtlF6UUXE+aDyp/JFaKiPRm9jD7238-60-94I87:32:00 [facility] ([facility])Infectious Dis. Progress NoteREPORT#:[id number] REPORT STATUS: SignedDATE:10/22/22 TIME: 1831 PATIENT: MATHEW CASTILLO UNIT #: [id number]#: [id number] [address] [birth year] AGE: 62 SEX: M ATTEND: Salinas Alba AUTHOR: Skip Jaffe MD * ALL edits or amendments must be made on the electronic/computer document * SubjectiveInternal recordPatient examined, chart reviewed, events of last 24 hours noted. See full dictated progress note for further details. ASSESSMENT AND PLAN: No new development. Patient is resting comfortably in bed. Remains awake and alert. Denies any new complaints. 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 Remains afebrile at the present time. [...] empiric IV antibiotics for now. at 0219 RPT #:[id number] OF REPORTPRProgress usnf9012-56-10F74:32:00G.OJIO94726042-5461PISokao able for patient frypYVTXEQNJLJNOFH4144-31-72P59:19:49 [facility] 2022-10-22 18:20:00 [id number] F8tpS83srn3eqUQ3cZR7g061NuqaZ zCnjlyZgfuDL4N0FIw2VYHKFhi25868-98-34P01:20:650[address] [id number] [place] [address] PATIENT NAME: MATHEW CASTILLO ADMIT DATE: 10/16/22ACCOUNT NO: [id number] ROOM NO: G.6630 AGE: 62 REPORT TYPE: PROGRESS NOTE SEX: M ADMITTING PHYSICIAN:Salinas Alba MD ATTENDING PHYSICIAN:Salinas Alba MD DATE: 10/21/2022 SUBJECTIVE: The patient examined. Chart reviewed. Events of last 24 hoursnoted. The patient clinically is not much changed. He remains awake and alert,resting comfortably in bed. Denies any new complaints. The patient remainsafebrile with low-grade temperature of up to 37.2 degrees Celsius. No nausea,vomiting reported. No diarrhea reported. The patient continues to haveindwelling Black catheter in place. The lower abdominal discomfort hasimproved. The patient is ambulating within the room. CURRENT MEDICATIONS: [...] The patient has mild suprapubic areatenderness. No hepatosplenomegaly. Bowel sounds are normoactive. Has minimaltenderness at the renal angles bilaterally.GENITOURINARY: The patient has indwelling Black catheter in place. Thecatheter appears to be working fine and has clear urine and being drained intothe bag.EXTREMITIES: Both calves are soft. No calf tenderness. No pedal edema.Peripheral pulses are faintly palpable bilaterally.SKIN: The patient's peripheral IV sites are clean without any evidence ofphlebitis. LABORATORY DATA: WBC has decreased to around 14,000 with hemoglobin of 12,hematocrit of 35, platelet count is 321,000. Manual differential shows 78%neutrophils, 8% band forms, 8% lymphocyte, 4%, monocyte, 2% eosinophils. PATIENT NAME: MATHEW CASTILLO Bilateral lower extremity venous Doppler studies show no evidence of DVT.C-reactive protein is 36. Serum sodium is 140, potassium 3.0, chloride 105,bicarbonate 29, glucose 89, BUN 10, creatinine 0.9, estimated GFR is 96, calciumis 7.3, magnesium is 1.50. D-dimer is 5949. ASSESSMENT AND PLAN: The patient with multiple comorbidities, was [facility]ad[facility]. The patient has a history of schizophrenia and had been havingurinary symptoms for over 2 years and about for 2 days, he would not be able topass any urine and he was found to have acute urinary retention. The patientalso had suspicion for possible urinary extravasation within the peritonealcavity due to that and for the need for urology evaluation, [facility]. The patient was continued on IVceftriaxone and had been doing fairly well until burglar alarm superintendent yesterday when hestarted to have fever of up to 37.8 degrees Celsius and he developedleukocytosis of around 19,000. The patient had his antibiotics changed to IVZosyn. Urinalysis done on admission had shown 1+ leukocyte esterase and morethe 50 rbc's, more than 50 wbc's, and trace bacteria. The patient currently isreceiving IV Zosyn; however, he had developed marked leukocytosis of 19,000yesterday and because of suspicion for possibility of deep vein thrombosis,including pelvic deep vein thrombosis, he had venous Doppler studies done and healso had D-dimer quantitative checked. His venous Doppler studies of lowerextremities are negative; however, D-dimer is elevated at 5949 and C-reactiveprotein is also elevated. The patient otherwise remains hemodynamically stable. We will for now, keep him on the same antibiotics. We will defer primary teamto further deep vein thrombosis prophylaxis. The case was discussed with MARLENA Cheng. Dictated By: Skip Jaffe MD Date Dictated: 10/22/2022 18:20:30Date Transcribed: 10/22/2022 19:52:40/Trina #: [id number] ID: [id number] Authenticated and Edited by Skip Jaffe MD On 11/02/22 2:22:51 AM at 0323 PATIENT NAME: MATHEW CASTILLO zcve8487-44-68U40:52:00G.TZP19020025-5217DWSrlhtu ble for patient tpdtIIHXIJPBVBSMZX8985-36-73T61:24:12 [facility] 2022-10-22 18:15:00 [id number]/hYJ6AQ E5HPdlyMbdvE56bt++zJ5XjQMWnpZ dhUFGUsjkzAWmyxPC5hqq0Bu29F4050-81-49A47:15:00 [facility] ([facility])Internal Medicine Prog. NoteREPORT#:[id number] REPORT STATUS: SignedDATE:10/22/22 TIME: 1814 PATIENT: YUKI CASTILLORELL SINCERE UNIT #: [id number]#: [id number] ROOM[address]BED: [address]: [birth year] AGE: 62 SEX: M ATTEND: Fernandamicah DukesSalinas Jacqui [facility] AUTHOR: Sofia Cheng NP * ALL edits or amendments must be made on the electronic/computer document * SubjectiveChief complaint:Abdominal distention, hydronephrosisHPI:62-year-old male with last medical history of, BPH, transferred from [place] for urology evaluation and treatment secondary to possible ruptured ureter. As per patient his abdomen was distended for at least for 2 days and hewas having difficulty urinating. Patient presented to outside facilityImaging revealed severe [...] urologist. Patient deniesfever, chills, dysuria, hematuria, or other associated symptoms. Patient deniesshortness of breath, chest pain, nausea, vomiting, diarrhea, constipation.Admission vital signs blood pressure 146/78, pulse 92, respiration 18, temperature 37.1, [...] palpitations. GI: Reports: abdominal pain. Denies: nausea, vomiting. [...] Result Date Time Pulse Ox 97 10/22 1701 B/P 114/70 10/22 1702 B/P Mean 84.4 10/22 1702 O2 Delivery Room air 10/22 1701 Temp 36.9 10/22 170 Pulse 72 10/22 1702 Resp 14 10/22 170 24 hour I O ending at 0700: [...] 10 MG Q6H PRN PRN IV Ondansetron HCl [...] tenderness, RUQ normal bowel soundsGenitourinary: foleyExtremities: moves all, no edema-all extremities, normal capillary refill, normal range of motion, normal sensory, normal motor functionNeuro/AGRICULTURAL AIRCRAFT PILOT: alert, oriented X 3Skin: dry, intact, no gross abnormalitiesPsychiatry: no hallucinations, normal moodProblem List/A P: 1. Rupture of ureter Free Text DxA P NotesFree text DxA P notes:Assessment:62-year-old male with last medical history of, BPH, transferred from [place] for urology evaluation and treatment secondary to possible ruptured ureter. As per patient his abdomen was distended for at least for 2 days and hewas having difficulty urinating. Patient presented to outside facilityImaging revealed severe [...] neededRepeat labsFurther recommendation based on patient's clinical eqhxeu0810/17/2022Vital signs within normal limitsHypokalemia 3.2, hypomagnesemia 1.50Renal [...] focal consolidation. Consultants evaluations notedElectrolyte control replace magnesiumStarted on IV antibiotic ZosynConsult placed to Dr. Jaffe for patients UTITroponin IBlood precaution, glycemic controlFollow-up EKG, labs, continue medications and supportive care3POC glucose is controlledD-dimer 5949Hypokalemia 3.0, hypomagnesemia 1.50, hypocalcemia 7.3Blood culture shows no growth after 48 hoursECG: Normal sinus rhythmNo evidence of deep vein thrombosisID has seen the patient. Continue empiric IV antibiotics-Zosyn, tamsulosin p.o.for now.Continue electrolyte control replace potassium and magnesiumPain control, glycemic controlFollow-up electrolytes and labs, continue medications and qvezbzz8910/22/2022Vital signs within normal limits, POC glucose is controlledHypocalcemia 7.8, hypomagnesemia 1.72No sonographic evidence for DVTBlood culture shows no growth after 48 hoursPatient with good urine output, renal function is improved, patient will follow-up as an outpatientStill on IV antibiotic Zosyn, tamsulosin p.o.Continue electrolyte control-replace magnesiumContinue pain control, glycemic controlFollow-up labs, continue medications and supportive care at 0314 at 0842 RPT #:[id number] OF REPORTPRProgress eatg6779-31-01I39:15:00G.UCWG75556602-9176YEMlwdl able for patient hhixTKVNBCWIHNRRPO3134-09-70M98:14:38 [facility] 2022-10-22 09:31:00 [id number] j/wNFv1eVH7aviiTwevKbmJPIifkG co61Tb3Fb4WRqXgkRhqYHk2iv0z9539-69-77W80:31:00 [facility] ([facility])Nephrology Progress NoteREPORT#:[id number] REPORT STATUS: SignedDATE:10/22/22 TIME: 930 PATIENT: MATHEW CASTILLO UNIT #: [id number]#: [id number] [place] [facility] [place]: [birth year] AGE: 62 SEX: M ATTEND: Salinas Alba I [facility] AUTHOR: Carmen Kemp * ALL edits or [...] 10 MG Q6H PRN PRN IV Ondansetron HCl [...] has been imported from the dietitian's assessment. BMI Calculated: 22.1Nutrition related diagnosis: Nutrition diagnosis details: Nutrition problem: Nutrition etiology: Nutrition signs and symptoms: Nutrition prescription: Dietitian name: Assessment completed: Physical ExamGeneral appearance: alert, awake, no acute distressHead/eyes: atraumatic, clear [...] 2.40 mg/dL) 1.72 L Diagnosis, Assessment PlanFree Text A P:Assessment and Plan: CHANDRA (Resolved)-Renal function improved and wnl, black to gravity, s/p bicarb gtt.-2/2 post-obstrucitve uropathy, monitor for post-obstructive diuresis. -UA, urine lytes requested and noted, no significant proteinuria.-Per Urology note: Reportedly the patient had 3L of urine in his bladder. CT abdomen from [place] showed that the patient has a very [...] diuresis and electrolyte imbalance Urinary Retention/BPH-Black to gravity, Urology following, on Tamsulosin-Per Urology note: Reportedly the patient had 3L of urine in his bladder. CT abdomen from [place] showed that the patient has a very [...] on PRN IV hydralazine Schizophrenia-Home medications resumed Fever-Low grade fever on 10/19/22, blood cx (10/20/22): NGTD, B/L LE venous doppler (10/21/22): Negative for DVT, on empiric abx per primary team. Discussed the plan with the patient, patient's nurse, and . Toby Koehler 10/22/22 1610:Attestations Physician AttestationReviewed findings plan:Patient examined Renal function improved and wnl, black to gravity, -2/2 post-obstrucitve uropathy, replace electrolytes as needed, agree with aboveA/P at 1842 at 2220 RPT #:[id number] OF REPORTPRProgress bfio5569-32-02V91:31:00G.EWZF74240034-7733SGOprms able for patient rntqFQFEJBTNFCNYJZ0284-65-82Y14:42:25 [facility] 2022-10-21 20:48:00 [id number]+6U6 QzULb3ky/0EzHEAkrJxm/DYHjvyDQ 72aE8/zqe9Qtdr+8KD9tPS+IW8+9529-07-25B49:48:00 [facility] Prog. NoteREPORT#:[id number] REPORT STATUS: SignedDATE:10/21/22 TIME: 2047 PATIENT: MATHEW CASTILLO UNIT #: [id number]#: [id number] [address] [birth year] AGE: 62 SEX: M ATTEND: Salinas Alba I [facility] AUTHOR: Sofia Cheng NP * ALL edits or amendments must be made on the electronic/computer document * SubjectiveChief complaint:Abdominal distention, hydronephrosisHPI:62-year-old male with last medical history of, BPH, transferred from [place] for urology evaluation and treatment secondary to possible ruptured ureter. As per patient his abdomen was distended for at least for 2 days and hewas having difficulty urinating. Patient presented to outside facilityImaging revealed severe [...] urologist. Patient deniesfever, chills, dysuria, hematuria, or other associated symptoms. Patient deniesshortness of breath, chest pain, nausea, vomiting, diarrhea, constipation.Admission vital signs blood pressure 146/78, pulse 92, respiration 18, temperature 37.1, [...] palpitations. GI: Reports: abdominal pain. Denies: nausea, vomiting. [...] TAB.ER) 40 MEQ ONCE ONE PO (DC) Piperacillin [...] sonographic evidence for DVT Impression By: May Ac M.D. Diagnosis, Assessment PlanHospital course to [...] tenderness, RUQ normal bowel soundsGenitourinary: foleyExtremities: moves all, no edema-all extremities, normal capillary refill, normal range of motion, normal sensory, normal motor functionNeuro/AGRICULTURAL AIRCRAFT PILOT: alert, oriented X 3Skin: dry, intact, no gross abnormalitiesPsychiatry: no hallucinations, normal moodProblem List/A P: 1. Rupture of ureter Free Text DxA P NotesFree text DxA P notes:Assessment:62-year-old male with last medical history of, BPH, transferred from [place] for urology evaluation and treatment secondary to possible ruptured ureter. As per patient his abdomen was distended for at least for 2 days and hewas having difficulty urinating. Patient presented to outside facilityImaging revealed severe [...] neededRepeat labsFurther recommendation based on patient's clinical ffapko0010/17/2022Vital signs within normal limitsHypokalemia 3.2, hypomagnesemia 1.50Renal [...] focal consolidation. Consultants evaluations notedElectrolyte control replace magnesiumStarted on IV antibiotic ZosynConsult placed to Dr. Jaffe for patients UTITroponin IBlood precaution, glycemic controlFollow-up EKG, labs, continue medications and supportive care3POC glucose is controlledD-dimer 5949Hypokalemia 3.0, hypomagnesemia 1.50, hypocalcemia 7.3Blood culture shows no growth after 48 hoursECG: Normal sinus rhythmNo evidence of deep vein thrombosisID has seen the patient. Continue empiric IV antibiotics-Zosyn, tamsulosin p.o. for now.Continue electrolyte control replace potassium and magnesiumPain control, glycemic controlFollow-up electrolytes and labs, continue medications and present at 0104 at 1009 RPT #:[id number] OF REPORTPRProgress gtbk6888-13-12R15:48:00G.ZIXW04912353-4284AGZaxae able for patient dssbQGBIZJHWHZIJSK9800-03-70W83:04:19 [facility] 2022-10-21 19:01:00 [id number] 4/zl2zj3iRnhJnzWUCfI+ihqL8RUG 3ybrO3O3+az7cfESwGfUF2Yq2LG0619-61-82O40:01:00 [facility] ([facility])Infectious Dis. Progress NoteREPORT#:[id number] REPORT STATUS: SignedDATE:10/21/22 TIME: 1900 PATIENT: MATHEW CASTILLO UNIT #: [id number]#: [id number] [address] [birth year] AGE: 62 SEX: M ATTEND: Salinas Alba I [facility] AUTHOR: Skip Jaffe MD * ALL edits or amendments must be made on the electronic/computer document * SubjectiveInternal recordPatient examined, chart reviewed, events of last 24 hours noted. See full dictated progress note for further details. ASSESSMENT AND PLAN: No significant change in general condition. Patient is [...] Discussed with Skylar MENDIOLA. at 0242 RPT #:[id number] OF REPORTPRProgress qzai2210-38-32L02:01:00G.LDSV63074332-2724JHEhzze able for patient qtjwDNYPXLHCLDNGEA5856-27-02H55:42:47 [facility] 2022-10-21 11:23:00 [id number] B+sJPbZ3j5HrpPloLhPe8vxc5WbPb ASY4k0D8/GFC5w/qQAPEACyIMij9731-37-55C42:23:00 [facility] ([facility]ENTERNephrology Progress NoteREPORT#:[id number] REPORT STATUS: SignedDATE:10/21/22 TIME: 1123 PATIENT: MATHEW CASTILLO UNIT #: [id number]#: [id number] [address] [birth year] AGE: 62 SEX: M ATTEND: Salinas Alba I [facility] [facility] AUTHOR: Carmen Kemp * ALL edits or [...] TAB.ER) 40 MEQ ONCE ONE PO (DC) Piperacillin [...] has been imported from the dietitian's assessment. BMI Calculated: 22.1Nutrition related diagnosis: Nutrition diagnosis details: Nutrition problem: Nutrition etiology: Nutrition signs and symptoms: Nutrition prescription: Dietitian name: Assessment completed: Physical ExamGeneral appearance: alert, awake, no acute distressHead/eyes: atraumatic, clear cornea, normal conjunctiva/sclera, normocephalicENT: normal noseNeck: supple/no meningismusCardiovascular: normal heart soundsRespiratory: decreased breath sounds, aerating well, no distressAbdomen: non-tender, softGenitourinary: urinary catheter, urineExtremities: no edema ResultsFindings/Data:Laboratory Tests 10/21 10/21 10/21 10/21 10/20 1126 [...] (<10.0 mg/L) 36.0 H Laboratory Tests 10/21 0426 Coagulation D-Dimer (<=500 ng/mlFEU) 5949 *H Laboratory Tests 10/21 0426 Hematology WBC (4.5 - 11.0 x10 3/uL) [...] urine in his bladder. CT abdomen from [place] showed that the patient has a very [...] monitor renal function and UOP Hypokalemia/Hypocalcemia/Hypomagnesemia-K+ and Mg replaced. Vitamin D deficiency, vitamin D supplement.-Monitor for post-obstructive diuresis and electrolyte imbalance Urinary Retention/BPH-Black to gravity, Urology following, on Tamsulosin-Per Urology note: Reportedly the patient had 3L of urine in his bladder. CT abdomen from [place] showed that the patient has a very [...] on PRN IV hydralazine Schizophrenia-Home medications resumed Fever-Low grade fever on 10/19/22, blood cx (10/20/22): NGTD, B/L LE venous doppler (10/21/22): Negative for DVT, on empiric abx per primary team. Discussed the plan with the patient, patient's nurse, and . Toby Koehler 10/21/222053:Attestations Physician AttestationReviewed findings plan:Ptient examined Renal function improved and wnl, black to gravity, -2/2 post-obstrucitve uropathy, monitor for post-obstructive diuresis, low K replaced agree with above A/P at 1640 at 2055 RPT #:[id number] OF REPORTPRProgress txvw8043-57-94U80:23:00G.SOCA53492856-0708IQOyqoq able for patient rjvaPGUMELQJCUVJPC3311-59-52V76:40:19 [facility] 2022-10-21 03:59:00 [id number]+N XxPoS2fiSVSVQ3NCROpbcWKCKTwbT tzfNfPlyjns878EaF2ODOQbf0Y17074-37-07K34:59:[address] [place], [place] [address] PATIENT NAME: MATHEW CASTILLO ADMIT DATE: 10/16/22ACCOUNT NO: [id number] ROOM NO: [place] AGE: 62 REPORT TYPE: CONSULTATION REPORT SEX: M ADMITTING PHYSICIAN:Salinas Alba MD ATTENDING PHYSICIAN:Salinas Alba MD CONSULTATION DATE: 10/20/2022 INFECTIOUS DISEASES CONSULTATION The patient examined, chart reviewed, old records reviewed, full consult dictated. Thank you, Dr. Michael, for asking me to evaluate Mr. Mathew Castillo. HISTORY OF PRESENT ILLNESS: Mr. Castillo is a 62-year-old male with past medical history of benign prostatic hypertrophy with recurrent urinary symptoms,history of schizophrenia, currently disabled because of schizophrenia, who was initially admitted to hospital in [place] where he presented with acute urinary retention. The patient reportedly was unable to pass urine for 2 days and he was found to have markedly distended bladder with bilateral hydronephrosis and there was a suspicion for extravasation of urine. The patient had a Black catheter placed at that facility and subsequently he startedto have urine output and his bladder apparently had about 3 liters of urine. The patient was also found to have acute renal failure. Because of the need forurology evaluation[facility]. On admission, the patient was afebrile; however, hedid have elevated BUN and creatinine and he was started empirically on IV ceftriaxone. The patient was evaluated by Dr. Toby Koehler in nephrology consultation and with supportive treatment, [...] Zosyn. Infectious diseases consultation is requested for evaluation of the patient for fever, recurrent leukocytosis, complicated urinary tract infection and for advice regarding further antibiotic treatment as necessary. REVIEW OF SYSTEMS: The patient currently appears awake, alert, and comfortable. He denies any headache, dizziness or blurring of vision. 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 Denies any nausea, vomiting or diarrhea. Denies any chest pain, cough, expectoration, or shortness of breath. He continues to have a Black catheter in place and admits to having suprapubic areasoreness and pain, however, states that the pain and soreness he had at the timeof presentation to the [facility] has resolved. Denies any joint pains. He is ambulating within the room. PATIENT NAME: MATHEW CASTILLO The patient states that he had 3 soft bowel movements today, but no ladan diarrhea and he [...] smoker and continues to smoke. Denies any history of alcohol use, IV drug use or substance abuse. 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 Current temperature is 37.1 degrees Celsius, blood pressure is 118/70, respirations [...] with hemoglobin of 12, hematocrit of 37, plateletcount is 328. Automated differentials show 81% neutrophils, [...] The patient had a urinalysisdone on 10/19/2022 burglar alarm superintendent that showed slightly cloudy urine with negativeketones, 3+ blood, 1+ protein, 1+ leukocyte esterase, more than 50 rbc's, more than 50 wbc's, trace bacteria, 11-20 hyaline casts, 1+ mucus. Urine random sodium is 102. [...] The patient had 2 blood cultures done burglar alarm superintendent today, which are incubating. IMPRESSION: The patient with multiple comorbidities including history of schizophrenia and benign prostatic hypertrophy with worsening urinary difficulties for last over 2 years, was admitted through emergency room where hewas [facility] because of need for urology evaluation. The [...] to 37.8 degrees Celsius last night and burglar alarm superintendent and had developed marked leukocytosis. Clinically, he [...] for. At present, the patient had 3 soft bowel movements, but no [...] empiric IV antibiotics for now.6. Further recommendations to follow depending on the clinical course of the PATIENT NAME: YUKI CASTILLOYENNI POST patient. Thank you again for inviting me to participate in the care of your patient. I will continue to follow along with you. The case was discussed with MARLENA Cheng, and with the patient's nursing staff. Dictated By: Skip Jaffe MD Date Dictated: 10/21/2022 03:59:46Date Transcribed: 10/21/2022 04:40:04ESTRADA/Annelise #: [id number] ID: [id number] by Skip Jaffe MD On 11/02/2022 02:22:37 AM at 0222 PATIENT NAME: YUKI CASTILLORELL SINCERE :40:00G.WA [id number] for patient yrwxULOEZSARUKUWUA8283-38-89R37:23:17 [facility] 2022-10-20 20:34:00 [id number] AJVbDpKOE1/jM06EUO5sgzRECI1ua DMhnobe+OOcIXlQ7m2kGtZw5WCv5415-09-66A56:34:00 [facility] ([facility])Nephrology Progress NoteREPORT#:[id number] REPORT STATUS: SignedDATE:10/20/22 TIME: 2033 PATIENT: MATHEW CASTILLO UNIT #: [id number]#: [id number] ROOM/BED: 6630-1DOB: [birth year] AGE: 62 SEX: M ATTEND: Salinas Alba I [facility] AUTHOR: Toby Koehler MD * ALL edits [...] - 57 U/L) 57 Laboratory Tests 10/20 011 Coagulation INR (0.8 - 1.2) 1.1 PTT (Boyd) (25.0 - 39.5 Seconds) 26.1 PT Patient/Control [...] - 32.0 %) 9.5 L 7.3 L Glascock % (Auto) (4.8 - 9.0 %) 7.2 7.5 Eos % (Auto) (0.3 - 3.7 %) 2.6 2.2 Baso % (Auto) (0.0 - 2.0 %) 0.4 0.3 Neut # (Auto) (2.0 - 7.6 x10 3/uL) 13.75 H 15.38 H Lymph # (Auto) (1.0 - 3.8 x10 3/uL) 1.67 1.40 Glascock # (Auto) (0.1 - 0.8 x10 3/uL) [...] Report Impression - Status: SIGNED Entered: 10/20/2022 0212 IMPRESSION: Mild interstitial pulmonary edema. No focal consolidation. Impression By: [email or web address] - Reinaldo Jacobs M.D. Diagnosis, Assessment PlanFree Text A P:Assessment and Plan: CHANDRA (Resolved)-Renal function improved and wnl, black to gravity, on bicarb gtt, will d/c now.-2/2 post-obstrucitve uropathy, monitor for post-obstructive diuresis. -UA, urine lytes requested-Per Urology note: Reportedly the patient had 3L of urine in his bladder. CT abdomen from [place] showed that the patient has a very [...] monitor renal function and UOP Hypokalemia/Hypocalcemia/Hypomagnesemia-K+ and Mg replaced. Vitamin D deficiency, vitamin D supplement.-Monitor for post-obstructive diuresis and electrolyte imbalance Urinary Retention/BPH-Black to gravity, Urology following, on Tamsulosin-Per Urology note: Reportedly the patient had 3L of urine in his bladder. CT abdomen from [place] showed that the patient has a very [...] on PRN IV hydralazine Schizophrenia-Home medications resumed at [address] [facility] #:[id number] OF REPORTPRProgress eoxj2340-64-49F42:34:00G.NXQX47712679-4146WGVgdch able for patient uabbQXSMNFIXCUJLJX3238-84-23E15:50:59 [facility] 2022-10-20 18:11:00 [id number] ZKDP76FDlXMexrt7e7gpGNb/7B3qc ESyMXYun+lj90FnfqdzYhAtwUs30183-43-29F59:11:00 [facility] ([facility])Internal Medicine Prog. NoteREPORT#:[id number] REPORT STATUS: SignedDATE:10/20/22 TIME: 1810 PATIENT: MATHEW CASTILLO UNIT #: [id number]#: [id number] ROOM/BED: G.6630-1DOB: [birth year] AGE: 62 SEX: M ATTEND: Salinas Alba I [facility] AUTHOR: Sofia Cheng PLASTIC DIE MAKER APPRENTICE * ALL edits or amendments must be made on the electronic/computer document * SubjectiveChief complaint:Abdominal distention, hydronephrosisHPI:62-year-old male with last medical history of, BPH, transferred from [place] for urology evaluation and treatment secondary to possible ruptured ureter. As per patient his abdomen was distended for at least for 2 days and hewas having difficulty urinating. Patient presented to outside facilityImaging revealed severe [...] urologist. Patient deniesfever, chills, dysuria, hematuria, or other associated symptoms. Patient deniesshortness of breath, chest pain, nausea, vomiting, diarrhea, constipation.Admission vital signs blood pressure 146/78, pulse 92, respiration 18, temperature 37.1, [...] palpitations. GI: Reports: abdominal pain. Denies: nausea, vomiting. [...] Mean Pulse Ox FiO2 10/19-10/20 36.5-37.8 72-84 114-123/69-78 84.7-92.9 95-98 Last Documented: Result Date [...] - 32.0 %) 9.5 L 7.3 L Glascock % (Auto) (4.8 - 9.0 %) 7.2 7.5 Eos % (Auto) (0.3 - 3.7 %) 2.6 2.2 Baso % (Auto) (0.0 - 2.0 %) 0.4 0.3 Neut # (Auto) (2.0 - 7.6 x10 3/uL) 13.75 H 15.38 H Lymph # (Auto) (1.0 - 3.8 x10 3/uL) 1.67 1.40 Glascock # (Auto) (0.1 - 0.8 x10 3/uL) [...] No focal consolidation. Impression By: [email or web address] - Reinaldo Jacobs M.D. Diagnosis, Assessment PlanHospital course to date:General [...] tenderness, RUQ normal bowel soundsGenitourinary: foleyExtremities: moves all, no edema-all extremities, normal capillary refill, normal range of motion, normal sensory, normal motor functionNeuro/AGRICULTURAL AIRCRAFT PILOT: alert, oriented X 3Skin: dry, intact, no gross abnormalitiesPsychiatry: no hallucinations, normal moodProblem List/A P: 1. Rupture of ureter Free Text DxA P NotesFree text DxA P notes:Assessment:62-year-old male with last medical history of, BPH, transferred from [place] for urology evaluation and treatment secondary to possible ruptured ureter. As per patient his abdomen was distended for at least for 2 days and hewas having difficulty urinating. Patient presented to outside facilityImaging revealed severe [...] neededRepeat labsFurther recommendation based on patient's clinical evdcuq8710/17/2022Vital signs within normal limitsHypokalemia 3.2, hypomagnesemia 1.50Renal [...] focal consolidation. Consultants evaluations notedElectrolyte control replace magnesiumStarted on IV antibiotic ZosynConsult placed to Dr. Jaffe for patients UTITroponin IBlood precaution, glycemic controlFollow-up EKG, labs, continue medications and supportive care at 0141 at 1009 RPT #:[id number] OF REPORTPRProgress sasg9969-36-70L52:11:00G.WHMF13120073-2585JLIlijv able for patient xakgEXHNWYUHHINBFC4469-36-81I75:42:15 [facility] 2022-10-20 17:06:00 [id number] wsxp/36ZUMvQ0tsYxymFfvgBvy6Fu OvR0/DBwGei6IqaY0rqOrACwDXn0523-41-26U52:06:00 [facility] ([facility])Infect Disease Consult NoteREPORT#:[id number] REPORT STATUS: SignedDATE:10/20/22 TIME: 1706 PATIENT: MATHEW CASTILLO UNIT #: [id number]#: [id number] [address] [birth year] AGE: 62 SEX: M ATTEND: Salinas Alba I MDADM AUTHOR: Skip Jaffe MD * ALL edits or amendments must be made on the electronic/computer document * History of Present IllnessHPI:Thank you for the consultation. Patient's current and old record reviewed. Orders initiated. See full dictated consultation report for further details. ASSESSMENT AND PLAN: Recurrent fever and leukocytosis most likely secondary to noninfectious causes. Recent complicated urinary tract infection with urinary retention. Rule out DVT and low-grade PE. Doubt any new nosocomial acquired infection. Repeat CBC with manual differential in the morning. Bilateral lower extremity venous Doppler studies. Inflammatory markers with the morning labs tomorrow. Continue empiric IV antibiotics for now. History - Adult longitudinalAllergies:Coded Allergies:No Known Allergies (10/16/22) at 0239 RPT #:[id number] OF REPORTRVFszhqcntibih5940-58-92P42:06:00G.PDOC2 8944020-0599XFSbwpczgyn for patient zhpaBKGNVSRXORLEOS5775-73-05M54:40:06 [facility] 2022-10-20 01:07:00 [id number] 7wJSZQqkqHIZKe6NfQskz+AYBwgnw 3Dri2uwH8YSp0TWMkAMZEo2DOCO9862-48-87Z16:07:[address]68 [address] [place] [address] PATIENT NAME: MATHEW CASTILLO ADMIT DATE: 10/16/22ACCOUNT NO: [id number] ROOM NO: G.6630 AGE: 62 REPORT TYPE: eELECTROCARDIOGRAM REPORT SEX: M ADMITTING PHYSICIAN:Salinas Alba MD ATTENDING PHYSICIAN:Salinas Alba MD Order:[id number] Reason : Sepsis Test Date/Time Stamp:FriOct 20 2022 01:07:09Blood Pressure : / mmHGVent. Rate : 076 BPM Atrial Rate : 076 BPM P-R Int : 124 ms QRS Dur : 080 ms QT Int : 414 ms P-R-T Axes : 058 -01 022 degrees QTc Int : 465 ms Normal sinus rhythmNormal ECGNo previous ECGs availableConfirmed by MD HERRON AHMED ([id number]) on 10/21/2022 12:47:02 PM Referred By: Salinas Dukes Confirmed by:ESMER HERRON MD at 1247 PATIENT NAME: MATHEW CASTILLO .[id number] AVAvailable for patient ywifQTFZVFHKFQTVZH0397-21-74A22:47:27 [facility] 2022-10-19 22:43:00 [id number]+bH+pxod Geh2XYCH/RKk4vPYFp00iRsvfZ0j/ pcyug15r5I6nHnHbmilnnL2k/M73510-65-90H99:43:00 [facility] Prog. NoteREPORT#:[id number] REPORT STATUS: SignedDATE:10/19/22 TIME: 2242 PATIENT: MATHEW CASTILLO UNIT #: [id number]#: [id number] [address] [birth year] AGE: 62 SEX: M ATTEND: Salinas Alba I [facility] AUTHOR: Sofia Cheng PLASTIC DIE MAKER APPRENTICE * ALL edits or amendments must be made on the electronic/computer document * SubjectiveChief complaint:Abdominal distention, hydronephrosisHPI:62-year-old male with last medical history of, BPH, transferred from [place] for urology evaluation and treatment secondary to possible ruptured ureter. As per patient his abdomen was distended for at least for 2 days and hewas having difficulty urinating. Patient presented to outside facilityImaging revealed severe [...] urologist. Patient deniesfever, chills, dysuria, hematuria, or other associated symptoms. Patient deniesshortness of breath, chest pain, nausea, vomiting, diarrhea, constipation.Admission vital signs blood pressure 146/78, pulse 92, respiration 18, temperature 37.1, [...] palpitations. GI: Reports: abdominal pain. Denies: nausea, vomiting. [...] 2.40 mg/dL) 1.48 L 10/1840 2012 1119 0728 0713 Chemistry POC Glucose (70 - 110 MG/DL) 104 129 H 177 H 105 Vitamin D 25-Hydroxy (30 - 100 ng/mL) 25.5 L 10/17 712 Chemistry Sodium (134 - 147 mEq/L) 140 [...] Laboratory Tests 10/19 10/18 10/17 0347 0543 0713 Hematology WBC (4.5 - 11.0 x10 [...] - 32.0 %) 15.7 15.6 10.6 L Glascock % (Auto) (4.8 - 9.0 %) 8.5 10.1 H 12.8 H Eos % (Auto) (0.3 - 3.7 %) 6.0 H 7.5 H 2.7 Baso % (Auto) (0.0 - 2.0 %) 0.7 0.7 0.4 Neut # (Auto) (2.0 - 7.6 x10 3/uL) 6.09 5.53 8.23 H Lymph # (Auto) (1.0 - 3.8 x10 3/uL) 1.48 1.39 1.22 Glascock # (Auto) (0.1 - 0.8 x10 3/uL) 0.80 0.90 H 1.47 H Eos # (Auto) (0.0 - 0.2 x10 3/uL) 0.57 H 0.67 H 0.31 H Baso # (Auto) (0.0 - 0.2 x10 3/uL) 0.07 0.06 0.05 Abs Immat Gran (auto) (0.00 - 0.03 x10 3/uL) 0.44 H 0.35 H 0.23 [...] pH (5.0 - 7.0) 5.0 Ur Specific Bluefield (1.005 - 1.030) 1.015 Urine Protein (NEGATIVE) [...] Surveillance Screen - COMP NASAL Chemistry: 10/19 10/19 10/19 10/19 10/19 1917 1615 1135 0773 9877 Chemistry Sodium (134 - 147 mEq/L) 139 [...] Magnesium (1.80 - 2.40 mg/dL) 1.65 L Microbiology:10/19 034 NASAL: MRSA DNA Surveillance Screen - COMP [...] Pulse Resp B/P B/P Mean Pulse Ox TaH155/-10/19 37.0-37.2 66-85 14-17 105-142/67-80 80.3-100.6 95-98 Last [...] tenderness, RUQ normal bowel soundsGenitourinary: foleyExtremities: moves all, no edema-all extremities, normal capillary refill, normal range of motion, normal sensory, normal motor functionNeuro/AGRICULTURAL AIRCRAFT PILOT: alert, oriented X 3Skin: dry, intact, no gross abnormalitiesPsychiatry: no hallucinations, normal moodProblem List/A P: 1. Rupture of ureter Free Text DxA P NotesFree text DxA P notes:Assessment:62-year-old male with last medical history of, BPH, transferred from [place] for urology evaluation and treatment secondary to possible ruptured ureter. As per patient his abdomen was distended for at least for 2 days and hewas having difficulty urinating. Patient presented to outside facilityImaging revealed severe [...] neededRepeat labsFurther recommendation based on patient's clinical tdrebe9010/17/2022Vital signs within normal limitsHypokalemia 3.2, hypomagnesemia 1.50Renal [...] present care at 0229 at 1514 RPT #:[id number] OF REPORTPRProgress prbt8916-55-64Z16:43:00G.AONN22312986-8667MCXtlon able for patient mbiiWITBXLSAWZWJQQ7914-43-60W22:29:44 [facility] 2022-10-19 20:14:00 [id number]/jmkQ rvTUSZ8Zg/r1BwVq1yEgisw5Dy+fabi Dl3pD36M28pY/jtXFFAehFd0Zpi6471-38-72N99:14:00 [facility]Neph[facility] Progress NoteREPORT#:[id number] REPORT STATUS: SignedDATE:10/19/22 TIME: 2013 PATIENT: MATHEW CASTILLO UNIT #: [id number]#: [id number] [address] [birth year] AGE: 62 SEX: M ATTEND: [...] catheter, urineExtremities: no edema ResultsFindings/Data:Laboratory Tests 10/19 10/19 10/19 10/19 10/18 1615 1135 0755 0340 2021 Chemistry Sodium (134 - 147 mEq/L) [...] % (Auto) (14.0 - 32.0 %) 15.7 Glascock % (Auto) (4.8 - 9.0 %) 8.5 Eos % (Auto) (0.3 - 3.7 %) 6.0 H Baso % (Auto) (0.0 - 2.0 %) 0.7 Neut # (Auto) (2.0 - 7.6 x10 3/uL) 6.09 Lymph # (Auto) (1.0 - 3.8 x10 3/uL) 1.48 Glascock # (Auto) (0.1 - 0.8 x10 3/uL) 0.80 Eos # (Auto) (0.0 - 0.2 x10 3/uL) 0.57 H Baso # (Auto) (0.0 - 0.2 x10 3/uL) 0.07 Abs Immat Gran (auto) (0.00 - 0.03 x10 3/uL) 0.44 H Add Manual Diff NO Immature Gran % (0.0 - 2.0 %) 4.7 H Nucleated RBC % (0 - 0 %) 0.0 Nucleated RBCs # (Man) (0.0 - 0.1 x10 3/uL) 0.00 Laboratory Tests 10/197 Urines Urine Color (YEL/STRAW) YELLOW Urine Appearance (CLEAR) SL CLOUDY Urine pH (5.0 - 7.0) 5.0 Ur Specific Bluefield (1.005 - 1.030) 1.015 Urine Protein (NEGATIVE) [...] urine in his bladder. CT abdomen from [place] showed that the patient has a very [...] monitor renal function and UOP Hypokalemia/Hypocalcemia/Hypomagnesemia-K+ and Mg replaced. Vitamin D deficiency, vitamin D supplement.-Monitor for post-obstructive diuresis and electrolyte imbalance Urinary Retention/BPH-Black to gravity, Urology following, on Tamsulosin-Per Urology note: Reportedly the patient had 3L of urine in his bladder. CT abdomen from [place] showed that the patient has a very [...] on PRN IV hydralazine Schizophrenia-Home medications resumed at [address] [facility] #:[id number] OF REPORTPRProgress fhij0776-60-29E64:14:00G.UGBW93757256-0865STEgvmi able for patient nmqdOACUZZJMHYYVDR9772-06-62Z02:49:08 [facility] 2022-10-18 20:26:00 [id number] L11vAE6sLoRsKGMruKdNJjZUDgcg5 sblLOfUxsLrGnxvTJJUWYx/ITw+8409-58-15Z37:26:00 [facility])Internal Medicine Prog. NoteREPORT#:[id number] REPORT STATUS: SignedDATE:10/18/22 TIME: 2025 PATIENT: MATHEW CASTILLO UNIT #: [id number]#: [id number] [address] [birth year] AGE: 62 SEX: M ATTEND: Salinas Alba I [facility] AUTHOR: Sofia Cheng PLASTIC DIE MAKER APPRENTICE * ALL edits or amendments must be made on the electronic/computer document * SubjectiveChief complaint:Abdominal distention, hydronephrosisHPI:62-year-old male with last medical history of, BPH, transferred from [place] for urology evaluation and treatment secondary to possible ruptured ureter. As per patient his abdomen was distended for at least for 2 days and hewas having difficulty urinating. Patient presented to outside facilityImaging revealed severe [...] urologist. Patient deniesfever, chills, dysuria, hematuria, or other associated symptoms. Patient deniesshortness of breath, chest pain, nausea, vomiting, diarrhea, constipation.Admission vital signs blood pressure 146/78, pulse 92, respiration 18, temperature 37.1, [...] Result Date Time Pulse Ox 97 10/18 1854 B/P 132/81 10/185 B/P Mean 98.2 10/18 185 O2 Delivery Room air 10/18 1854 Temp 37.1 10/18 1854 Pulse 75 10/18 185 Resp 16 10/18 1854 24 hour I O ending at 0700: [...] TAB.ER) 40 MEQ ONCE ONE PO (DC) Cholecalciferol [...] % (Auto) (14.0 - 32.0 %) 15.6 Glascock % (Auto) (4.8 - 9.0 %) 10.1 H Eos % (Auto) (0.3 - 3.7 %) 7.5 H Baso % (Auto) (0.0 - 2.0 %) 0.7 Neut # (Auto) (2.0 - 7.6 x10 3/uL) 5.53 Lymph # (Auto) (1.0 - 3.8 x10 3/uL) 1.39 Glascock # (Auto) (0.1 - 0.8 x10 3/uL) 0.90 H Eos # (Auto) (0.0 - 0.2 x10 3/uL) 0.67 H Baso # (Auto) (0.0 - 0.2 x10 3/uL) 0.06 Abs Immat Gran (auto) (0.00 - 0.03 x10 3/uL) 0.35 H Add Manual Diff NO Immature Gran [...] tenderness, RUQ normal bowel soundsGenitourinary: foleyExtremities: moves all, no edema-all extremities, normal capillary refill, normal range of motion, normal sensory, normal motor functionNeuro/AGRICULTURAL AIRCRAFT PILOT: alert, oriented X 3Skin: dry, intact, no gross abnormalitiesPsychiatry: no hallucinations, normal moodProblem List/A P: 1. Rupture of ureter Free Text DxA P NotesFree text DxA P notes:Assessment:62-year-old male with last medical history of, BPH, transferred from [place] for urology evaluation and treatment secondary to possible ruptured ureter. As per patient his abdomen was distended for at least for 2 days and hewas having difficulty urinating. Patient presented to outside facilityImaging revealed severe [...] neededRepeat labsFurther recommendation based on patient's clinical xftwcv4310/17/2022Vital signs within normal limitsHypokalemia 3.2, hypomagnesemia 1.50Renal [...] and supportive care at 2012 at [address] [facility] #:[id number] OF REPORTPRProgress nrgg6075-92-11K85:26:00G.IJKK25653840-0457QKEhzah able for patient evvsRXFURXVMYFXIOK0651-11-89N02:12:32 [facility] 2022-10-18 17:48:00 [id number] fE+PbIDzsidDMCJE7YsbP8zXEH11v G2saZ4btBryo9L/jKJWyt8kjhLX3974-99-67J84:48:00 [facility]Neph[facility] Progress NoteREPORT#:[id number] REPORT STATUS: SignedDATE:10/18/22 TIME: 1747 PATIENT: MATHEW CASTILLO UNIT #: [id number]#: [id number] [address] [birth year] AGE: 62 SEX: M ATTEND: Salinas Alba I [facility] AUTHOR: Carmen Kemp * ALL edits or amendments must be made on the electronic/computer document * See AddendumCarmen Kemp 10/18/221747:SubjectiveChief complaint:Concern for ruptured ureterHPI:The patient seen and [...] TAB.ER) 40 MEQ ONCE ONE PO (DC) Cholecalciferol [...] has been imported from the dietitian's assessment. BMI Calculated: 22.1Nutrition related diagnosis: Nutrition diagnosis details: Nutrition problem: Nutrition etiology: Nutrition signs and symptoms: Nutrition prescription: Dietitian name: Assessment completed: Physical ExamGeneral appearance: alert, awake, oriented, no acute distressHead/eyes: atraumatic, clear cornea, normal conjunctiva/sclera, normocephalicENT: normal noseNeck: supple/no meningismusCardiovascular: normal heart soundsRespiratory: decreased breath sounds, aerating well, no distressAbdomen: distendedGenitourinary: urinary catheter, urineExtremities: no edema ResultsFindings/Data:Laboratory Tests 10/18 10/18 10/18 10/18 10/17 1118 [...] % (Auto) (14.0 - 32.0 %) 15.6 Glascock % (Auto) (4.8 - 9.0 %) 10.1 H Eos % (Auto) (0.3 - 3.7 %) 7.5 H Baso % (Auto) (0.0 - 2.0 %) 0.7 Neut # (Auto) (2.0 - 7.6 x10 3/uL) 5.53 Lymph # (Auto) (1.0 - 3.8 x10 3/uL) 1.39 Glascock # (Auto) (0.1 - 0.8 x10 3/uL) 0.90 H Eos # (Auto) (0.0 - 0.2 x10 3/uL) 0.67 H Baso # (Auto) (0.0 - 0.2 x10 3/uL) 0.06 Abs Immat Gran (auto) (0.00 - 0.03 x10 3/uL) 0.35 H Add Manual Diff NO Immature Gran [...] urine in his bladder. CT abdomen from [place] showed that the patient has a very [...] monitor renal function and UOP Hypokalemia/Hypocalcemia/Hypomagnesemia-K+ and Mg replaced. Vitamin D deficiency, vitamin D supplement.-Monitor for post-obstructive diuresis and electrolyte imbalance Urinary Retention/BPH-Black to gravity, Urology following, on Tamsulosin-Per Urology note: Reportedly the patient had 3L of urine in his bladder. CT abdomen from [place] showed that the patient has a very [...] on PRN IV hydralazine Schizophrenia-Home medications resumed Discussed the plan with the patient, patient's nurse, and . Toby Koehler 10/18/221930:Attestations Physician AttestationReviewed findings plan:Patient examined Renal function improved and wnl, black to gravity, off bicarb drip-2/2 post-obstrucitve uropathy, monitor for post-obstructive diuresis, check lytes in am. urology evaluation noted. Agree with above A/P at 1750 at 1931 Addendum 1: 10/18/221936 by Toby Koehler MD K and magnesium supplementation. at 1937 RPT #:[id number] OF REPORTPRProgress phaz0048-87-43P64:48:00G.[id number] able for patient bnjiWRWTRAOHEFIAOV4094-86-68I47:50:34 [facility] 2022-10-17 22:43:00 [id number] NHx8pf2qtnEZDWKd+wXRX3BeSkz9J 3bkjbKM135rHcW3u59ulpp6sBtJ9558-88-38J98:43:00 [facility] Prog. NoteREPORT#:[id number] REPORT STATUS: SignedDATE:10/17/22 TIME: 2242 PATIENT: MATHEW CASTILLO UNIT #: [id number]#: [id number] [address] AGE: 62 SEX: M ATTEND: Salinas Alba I [facility] AUTHOR: Sofia Cheng NP * ALL edits or amendments must be made on the electronic/computer document * SubjectiveChief complaint:Abdominal distention, hydronephrosisHPI:62-year-old male with last medical history of, BPH, transferred from [place] for urology evaluation and treatment secondary to possible ruptured ureter. As per patient his abdomen was distended for at least for 2 days and hewas having difficulty urinating. Patient presented to outside facilityImaging revealed severe [...] urologist. Patient deniesfever, chills, dysuria, hematuria, or other associated symptoms. Patient deniesshortness of breath, chest pain, nausea, vomiting, diarrhea, constipation.Admission vital signs blood pressure 146/78, pulse 92, respiration 18, temperature 37.1, [...] Pulse Resp B/P B/P Mean Pulse Ox WiW596/-10/17 37.2-37.5 83-100 16-18 119-133/70-79 86.3-96.8 93-95 Last [...] 0 AC HS SUBQ ResultsFindings/Data:Laboratory Tests 10/17/22 07:[Embedded Image Not Available]Laboratory Tests 10/17 10/17 10/17 [...] 100 ng/mL) 25.5 L Laboratory Tests 10/17 07 Hematology WBC (4.5 - 11.0 x10 3/uL) [...] (Auto) (14.0 - 32.0 %) 10.6 L Glascock % (Auto) (4.8 - 9.0 %) 12.8 H Eos % (Auto) (0.3 - 3.7 %) 2.7 Baso % (Auto) (0.0 - 2.0 %) 0.4 Neut # (Auto) (2.0 - 7.6 x10 3/uL) 8.23 H Lymph # (Auto) (1.0 - 3.8 x10 3/uL) 1.22 Glascock # (Auto) (0.1 - 0.8 x10 3/uL) 1.47 H Eos # (Auto) (0.0 - 0.2 x10 3/uL) 0.31 H Baso # (Auto) (0.0 - 0.2 x10 3/uL) 0.05 Abs Immat Gran (auto) (0.00 - 0.03 x10 3/uL) 0.23 H Add Manual Diff NO [...] tenderness, RUQ normal bowel soundsGenitourinary: foleyExtremities: moves all, no edema-all extremities, normal capillary refill, normal range of motion, normal sensory, normal motor functionNeuro/AGRICULTURAL AIRCRAFT PILOT: alert, oriented X 3Skin: dry, intact, no gross abnormalitiesPsychiatry: no hallucinations, normal moodProblem List/A P: 1. Rupture of ureter Free Text DxA P NotesFree text DxA P notes:Assessment:62-year-old male with last medical history of, BPH, transferred from [place] for urology evaluation and treatment secondary to possible ruptured ureter. As per patient his abdomen was distended for at least for 2 days and hewas having difficulty urinating. Patient presented to outside facilityImaging revealed severe [...] neededRepeat labsFurther recommendation based on patient's clinical tjsdwa8710/17/2022Vital signs within normal limitsHypokalemia 3.2, hypomagnesemia 1.50Renal function is improved, discontinue bicarb drip, continue electrolyte control-replace as needed per nephroUrology is followingContinue tamsulosinBP control-on hydralazine as needed, pain controlContinue telemetry monitoring, intake and output, fall precautionFollow-up labs, continue medications and supportive care at 0210 at 1300 RPT #:[id number] OF REPORTPRProgress lbdd6921-59-93F28:43:00G.DODL81933284-9355QUJmxpj able for patient tigbXOYJJAISCUARBG4226-58-54K35:10:49 [facility] 2022-10-17 17:41:00 [id number] E0HzQJl3NByBIi59P8d420xksxnKe Tf6/7+3wIo8nlXwHcijreoNTF4o7178-30-54C29:41:00 [facility] ([facility])Urology Progress NoteREPORT#:[id number] REPORT STATUS: SignedDATE:10/17/22 TIME: 1740 PATIENT: MATHEW CASTILLO UNIT #: [id number]#: [id number] [address] [birth year] AGE: 62 SEX: M ATTEND: Salinas Alba I [facility] AUTHOR: Dave Jones MD * ALL edits [...] awakeGenitourinary: Genitourinary: catheter in situ ResultsFindings/Data:Laboratory Tests: 10/17 10/17 10/17 10/17 1119 0728 [...] (Auto) (14.0 - 32.0 %) 10.6 L Glascock % (Auto) (4.8 - 9.0 %) 12.8 H Eos % (Auto) (0.3 - 3.7 %) 2.7 Baso % (Auto) (0.0 - 2.0 %) 0.4 Neut # (Auto) (2.0 - 7.6 x10 3/uL) 8.23 H Lymph # (Auto) (1.0 - 3.8 x10 3/uL) 1.22 Glascock # (Auto) (0.1 - 0.8 x10 3/uL) 1.47 H Eos # (Auto) (0.0 - 0.2 x10 3/uL) 0.31 H Baso # (Auto) (0.0 - 0.2 x10 3/uL) 0.05 Abs Immat Gran (auto) (0.00 - 0.03 x10 3/uL) 0.23 H Add Manual Diff NO Immature Gran % (0.0 - 2.0 %) 2.0 Nucleated RBC % (0 - 0 %) 0.0 Nucleated RBCs # (Man) (0.0 - 0.1 x10 3/uL) 0.00 Diagnosis, Assessment PlanFree Text A P:back pressure edema and possible forniceal rupture from retention - SCr 0.9 - F/U outpt ofr cystoscopy. Home with black at 1742 [facility] #:[id number] OF REPORTPRProgress prsv0960-84-87A78:41:00G.TKXB20526550-6065LTBncev able for patient rpbgKWRSJQGDRKAUVF2187-20-39V01:42:28 [facility] 2022-10-17 13:46:00 [id number] We1jOQJc3aPibxitGcChGkQMilwCb 2sRqkbEhexcl6TJPdmHxDfi3oOF5532-84-98U85:46:00 [facility]Nephrology Progress NoteREPORT#:[id number] REPORT STATUS: SignedDATE:10/17/22 TIME: 1345 PATIENT: MATHEW CASTILLO UNIT #: [id number]#: [id number] [address] [birth year] AGE: 62 SEX: M ATTEND: Salinas Alba I [facility] AUTHOR: Carmen Kemp * ALL edits or [...] Bicarbonate (SODIUM BICARBONATE) 100 ML Q11H IV (DCr) Sodium Chloride (0.45% Sodium [...] has been imported from the dietitian's assessment. BMI Calculated: 22.1Nutrition related diagnosis: Nutrition diagnosis details: Nutrition problem: Nutrition etiology: Nutrition signs and symptoms: Nutrition prescription: Dietitian name: Assessment completed: Physical ExamGeneral appearance: alert, awake, oriented, no acute distressHead/eyes: atraumatic, clear cornea, normal conjunctiva/sclera, normocephalicENT: normal noseNeck: supple/no meningismusCardiovascular: normal heart soundsRespiratory: decreased breath sounds, aerating well, no distressAbdomen: distendedGenitourinary: urinary catheter, urineExtremities: no edema ResultsFindings/Data:Laboratory Tests 10/17 10/17 10/17 10/17 1119 0728 [...] (Auto) (14.0 - 32.0 %) 10.6 L Glascock % (Auto) (4.8 - 9.0 %) 12.8 H Eos % (Auto) (0.3 - 3.7 %) 2.7 Baso % (Auto) (0.0 - 2.0 %) 0.4 Neut # (Auto) (2.0 - 7.6 x10 3/uL) 8.23 H Lymph # (Auto) (1.0 - 3.8 x10 3/uL) 1.22 Glascock # (Auto) (0.1 - 0.8 x10 3/uL) 1.47 H Eos # (Auto) (0.0 - 0.2 x10 3/uL) 0.31 H Baso # (Auto) (0.0 - 0.2 x10 3/uL) 0.05 Abs Immat Gran (auto) (0.00 - 0.03 x10 3/uL) 0.23 H Add Manual Diff NO [...] urine in his bladder. CT abdomen from [place] showed that the patient has a very [...] monitor renal function and UOP Hypokalemia/Hypocalcemia/Hypomagnesemia-K+ and Mg replaced. Vitamin D deficiency, vitamin D supplement.-Monitor for post-obstructive diuresis and electrolyte imbalance Urinary Retention/BPH-Black to gravity, Urology following, on Tamsulosin-Per Urology note: Reportedly the patient had 3L of urine in his bladder. CT abdomen from [place] showed that the patient has a very [...] on PRN IV hydralazine Schizophrenia-Home medications resumed Discussed the plan with the patient, patient's nurse, and . Toby Koehler 10/17/22 2232:Attestations Physician AttestationReviewed findings plan: Patient examined Renal function improved and wnl, black to gravity, off bicarb drip-2/2 post-obstrucitve uropathy, monitor for post-obstructive diuresis, check lytes in am. urology evaluation noted. Agree with above A/P at 1759 at 2234 RPT #:[id number] OF REPORTPRProgress xsha2112-56-27N83:46:00G.VAOU00760256-2722VZIizdp able for patient tfzqDUTWJCMJRXTSVM4779-99-23F02:00:00 [facility] 2022-10-16 15:13:00 [id number] tIvlaDJynHLte1L65xDz6MKW0fw7C qj8CMWjeSUE1gHdOM5X7ehm4Kd19259-37-64M02:13:59115 2-[address] [place] [address] PATIENT NAME: MATHEW CASTILLO ADMIT DATE: 10/16/22ACCOUNT NO: [id number] [place] [facility] AGE: 62 REPORT TYPE: CONSULTATION REPORT SEX: M ADMITTING PHYSICIAN:Salinas Alba MD ATTENDING PHYSICIAN:Salinas Alba MD CONSULTATION DATE:10/16/2022 REASON FOR CONSULTATION: Hydronephrosis, urinary retention. HISTORY OF PRESENT ILLNESS: This is a 62-year-old male with a history ofschizophrenia who was sent in from [place]. He had reportedly almost 3liters of urine [...] SYSTEMS: A 14-point review of system was obtained and is negativeother than HPI. The patient reports no discomfort. PHYSICAL EXAMINATION:VITAL SIGNS: Blood pressure 134/86, pulse 94, respiratory rate 18, kyxmfzxhgwj40.1, 93% on room air.GENERAL: Alert. No acute distress, nontoxic.HEENT: Normocephalic, atraumatic. Nontoxic.NECK: Supple.HEART: Regular rate and rhythm.LUNGS: Respirations unlabored.ABDOMEN: Soft, nontender, nondistended. No CVA tenderness.EXTREMITIES: Moving all extremities well. LABORATORY DATA: White blood cell count 11, hemoglobin 10.9, platelets 207.Creatinine was 2.1 on admission, now down to 1.4. ASSESSMENT AND PLAN: We reviewed the CT scan of the abdomen and [facility] from [facility]. The patient has a very large distended bladder withhydroureteronephrosis and there does appear to be maybe a forniceal rupture orsome back pressure into the kidneys causing some inflammation and possibly asmall amount of urine to come out through the forniceal areas that I do not seean actual ruptured ureter. The patient's creatinine has improved. His symptomshave totally resolved with catheter placement. This can be managedconservatively. The patient will follow up as an outpatient. PATIENT NAME: MATHEW CASTILLO Dictated By: Dave Jones MD Date Dictated: 10/16/2022 15:13:22Date Transcribed: 10/16/2022 16:06:29TESSIE/Yulisa #: [id number] ID: [id number] and Edited by Dave Jones MD On 11/12/22 1:37:06 PM at 0138 PATIENT NAME: MATHEW CASTILLO :06:00G.WA [id number] for patient ayghBYXVSBWIWTLLBA5201-09-38B71:40:23 [facility] 2022-10-16 12:39:00 [id number] VXnVQ/GhKde3GNqm5hxKFnALmy+PL VO6RecyVHjiGbKDHr8u8wD5IcOE6995-82-45I12:39:00 [facility] ([facility])Nephrology Consultation NoteREPORT#:[id number] REPORT STATUS: SignedDATE:10/16/22 TIME: 1239 PATIENT: MATHEW CASTILLO UNIT #: [id number]#: [id number] [address] [birth year] AGE: 62 SEX: M ATTEND: Salinas Alba I [facility] AUTHOR: Carmen Kemp * ALL edits or amendments must be made on the electronic/computer document * Carmen Kemp 10/16/22 1239:History of Present IllnessRequesting clinician: Salinas Deshpande/DONAVON Blackeason for consult:AKIElectrolyte imbalanceChief complaint:Concern for ruptured ureterPCP:PCP: No Primary or Family Physician HPI: is a pleasant 62 years old male with PMH significant for schizophrenia, HTN, BPH, current everyday smoker. The patient states that on Friday last week, he noted abdominal distention, associated w/ pain and was unable to urinate. He was seen by his daughter Friday who took him to ER in [place]. He had CT abdomen which revealed b/l hydronephrosis and concern for possible ureteral rupture. [facility] Initial [facility] at [facility] [...] 0416 DC 10/16 (ROCEPHIN 1000MG IV 10/16 041 0503 VIAL) Sodium Chloride 10 ML (SODIUM [...] CKD 10/16 (SODIUM BICARBONATE) IV 11/15 1344 1650 [...] Chloride 50 ML Q1HR 10/16 1000 DC 10/16 (KCL 10MEQ/SWFI 50ML) IV 10/16 1159 1219 [...] Known Allergies (10/16/22) Review of SystemsAdditional notes:A 12 point ROS is obtained [...] Bicarbonate (SODIUM BICARBONATE) 100 ML Q11H IV (CKD) Sodium Chloride (0.45% Sodium Chloride) 1,000 MLBenztropine Mesylate (COGENTIN) 1 MG DAILY PO Calcium [...] Chloride (POTASSIUM CHLORIDE 20MEQ TAB.ER) 40 MEQ Q2H PO (DC) Ceftriaxone Sodium (ROCEPHIN 1000MG VIAL) 1,000 MG X1ED STA IV (DC) Sodium Chloride (SODIUM CHLORIDE) 10 ML Physical ExamGeneral appearance: alert, awake, oriented, no acute distressHead/eyes: atraumatic, clear cornea, normal conjunctiva/sclera, normocephalicENT: normal noseNeck: supple/no meningismusCardiovascular: normal heart soundsRespiratory: wheezes, aerating well, no distressAbdomen: distendedGenitourinary: urinary catheter, urineExtremities: no edema ResultsFindings/Data:Laboratory Tests 10/16 10/16 10/16 10/16 10/16 1715 [...] (Auto) (14.0 - 32.0 %) 3.8 L Glascock % (Auto) (4.8 - 9.0 %) 13.6 H Eos % (Auto) (0.3 - 3.7 %) 0.4 Baso % (Auto) (0.0 - 2.0 %) 0.2 Neut # (Auto) (2.0 - 7.6 x10 3/uL) 8.96 H Lymph # (Auto) (1.0 - 3.8 x10 3/uL) 0.42 L Glascock # (Auto) (0.1 - 0.8 x10 3/uL) [...] -Repeat labs, renal function improving, on IVF w/ bicarb per primary team-UA, urine lytes requested-Per Urology note: Reportedly the patient had 3L of urine in his bladder. CT abdomen from [place] showed that the patient has a very [...] diuresis and electrolyte imbalance Urinary Retention/BPH-Black to gravity, Urology following, on Tamsulosin-Per Urology note: Reportedly the patient had 3L of urine in his bladder. CT abdomen from [place] showed that the patient has a very [...] patient's nurse, and . Toby Koehler 10/16/22 4639:Attestations Physician AttestationReviewed findings plan:Patient examined 62 years old male with PMH significant for schizophrenia, HTN, BPH, current everyday smoker. The patient states that on Friday last week, he noted abdominal distention, associated w/ pain and was unable to urinate. He wasseen by his daughter Friday who took him to ER in [place]. He had CT abdomen which revealed b/l hydronephrosis and concern for possible ureteral rupture. He was transferred to [facility] for Urology evaluation. Initial VSat the ER showed a temperature of 37.1c, pulse 92/min, respration 18/min, BP 146/78 mm Hg and SpO2 96%. Laboratory data showed normal WBC, hypokalemia w/ K+ 2.8, CO2 18, azotemia w/ BUN 41, Cr 2.1, elevated blood sugar of 643, hypocalcemia w/ Ca 4.9. Foleys to gravity, replace K aggressively monitor electrolytes closely includingmagnesium, urology evaluation noted, Agree with above A/P at 1902 at 2211 RPT #:[id number] OF REPORTSPHyziffkkdmyw0757-55-74B42:39:00G.PDOC2 [id number] for patient suisTCWLWGXWXADHLZ2629-24-14L40:02:18 [facility] 2022-10-16 11:15:00 [id number]+uyISa nluAb/OFHrvZmuuArwT2aN8XGtVkt yBt0hKQXxwzMfDT2iDO82RP8uaL8252-53-32P90:15:00 [facility] ([facility])History Physical - AdultREPORT#:[id number] REPORT STATUS: SignedDATE:10/16/22 TIME: 1115 PATIENT: ANNAMATHEW SHILOH UNIT #: [id number]#: [id number] ROOM/BED: 6630-1DOB: [birth year] AGE: 62 SEX: M ATTEND: Salinas Alba I [facility] AUTHOR: Sofia Cheng NP * ALL edits or amendments must be made on the electronic/computer document * History of Present Illness HPIChief complaint:Abdominal distention, hydronephrosisHPI:62-year-old male with last medical history of, BPH, transferred from [place] for urology evaluation and treatment secondary to possible ruptured ureter. As per patient his abdomen was distended for at least for 2 days and hewas having difficulty urinating. Patient presented to outside facilityImaging revealed severe [...] urologist. Patient deniesfever, chills, dysuria, hematuria, or other associated symptoms. Patient deniesshortness of breath, chest pain, nausea, vomiting, diarrhea, constipation.Admission vital signs blood pressure 146/78, pulse 92, respiration 18, temperature 37.1, O2 sat 96% on room air. Abnormal labs:Hemoglobin 10.9, hematocrit 31.7, potassium 2.8, chloride 114, CO2 18, BUN 41, creatinine 2.1, glucose 643Calcium 4.9. HistorySmoking status for patients 13 years old or older: Current some day smokerDate last smoked: 10/15/22 Medication/Allergy-Vaccine HxAllergies:Coded Allergies:No Known Allergies (10/16/22) Review [...] I O ending at 0700: 10/16 0700 07 1900 Intake Total Output Total Balance Patient [...] tenderness, RUQ normal bowel soundsGenitourinary: foleyExtremities: moves all, no edema-all extremities, normal capillary refill, normal range of motion, normal sensory, normal motor functionNeuro/AGRICULTURAL AIRCRAFT PILOT: alert, oriented X 3Skin: dry, intact, no [...] (Auto) (14.0 - 32.0 %) 3.8 L Glascock % (Auto) (4.8 - 9.0 %) 13.6 H Eos % (Auto) (0.3 - 3.7 %) 0.4 Baso % (Auto) (0.0 - 2.0 %) 0.2 Neut # (Auto) (2.0 - 7.6 x10 3/uL) 8.96 H Lymph # (Auto) (1.0 - 3.8 x10 3/uL) 0.42 L Glascock # (Auto) (0.1 - 0.8 x10 3/uL) [...] Notes:Assessment:62-year-old male with last medical history of, BPH, transferred from [place] for urology evaluation and treatment secondary to possible ruptured ureter. As per patient his abdomen was distended for at least for 2 days and hewas having difficulty urinating. Patient presented to outside facilityImaging revealed severe [...] on patient's clinical course at 0232 at 1939 RPT #:[id number] OF REPORTHPHistory and physical gcdlwbwqjar1465-43-81U70:15:00G.[id number] AVAvailable for patient knfyBJMNZHTNTMDFGC2099-10-55C61:32:18 [facility] 2022-10-16 03:54:00 [id number]+AgTxa y2r/vmrw7WDfE7FOYAVO9yhg7axqd v4ohjbBa0H4ybWsTn+dJvDvAa8Z9310-31-70E86:54:00 [facility] PROVID[facility] REPORTREPORT#:[id number] REPORT STATUS: SignedDATE:10/16/22 TIME: 353 PATIENT: MATHEW CASTILLO UNIT #: [id number]#: [id number] [address] 62 SEX: M PCP PHYS: No Primary or Family PhysicianSERVICE AUTHOR: Alecia Iverson MD * ALL edits or amendments must be made on the electronic/computer document * HPI-General Illness GeneralInitial Greet Date/Time 10/16/22 030 PresentationChief Complaint __ (ruptured ureter) Free Text HPI NotesFree Text HPI NotesThisherri is a 62-year-old male, past medical history of schizophrenia, who presents to the emergency department with a ruptured ureter. He was transferred from outside facility for urology consult. His daughter is with him who provides most of the history, states that for the past 2 days he has been having increasing abdominal distention, went to outside hospital was found to have severe bilateral hydronephrosis with evidence of active urine extravasation likely from the ureter. And here for further evaluation. Patient denies any pain Review of Systems ROS StatementsAll systems rev neg except as marked. Free Text ROS NotesFree Text ROS Notesabdominal distension Past Medical History - AdultStated Complaint ACUTE RENAL FAILURE, RUPTURED LEFT URETERAllergiesCoded Allergies:No Known Allergies (10/16/22) Home MedicationsReported MedicationsBENZTROPINE 1 MG PO DAILY HALOPERIDOL (HALDOL) 10 MG PO BID Calculated Suicide Risk (nurs) No riskSmoking status for patients 13 years old or older: Current some day smoker Physical Exam Vital SignsVital SignsFirst Documented: Result Date Time Pulse Ox 96 10/16 0308 B/P 146/78 10/16 0308 B/P Mean 100 10/16 0308 O2 Delivery Room air 10/17 307 Temp 37.1 10/16 0308 Pulse 92 10/16 0308 Resp 18 10/17 307 Last Documented: Result Date Time Pulse Ox 96 10/16 329 B/P 146/80 10/16 329 B/P Mean 107 10/16 329 Pulse 90 10/16 329 O2 Delivery Room air 10/17 307 Temp 37.1 10/17 307 Resp 18 10/17 307 Review of Vital Signs Reviewed Free Text PE NotesFree Text PE NotesGen.: Awake and conversing. NADHEENT: NCAT. MM moist Eyes: PERRL. EOMI. Conjunctiva normal.Neck: Supple. Trachea is midline.Heart: RRR. No murmurChest: CTA bilat. No accessory muscle usage.Abdomen: Abdominal distention, nontender to [...] (Auto) (14.0 - 32.0 %) 3.8 L Glascock % (Auto) (4.8 - 9.0 %) 13.6 H Eos % (Auto) (0.3 - 3.7 %) 0.4 Baso % (Auto) (0.0 - 2.0 %) 0.2 Neut # (Auto) (2.0 - 7.6 x10 3/uL) 8.96 H Lymph # (Auto) (1.0 - 3.8 x10 3/uL) 0.42 L Glascock # (Auto) (0.1 - 0.8 x10 3/uL) [...] who is transferred here for urology consult after found to have a likely left-sided ureteral rupture. Vital signs are stable with normal limits, no concern for sepsis. Abdomen is benign. Laboratory studies reveal ARF, likely postobstructive due [...] 10/16 Sodium Chloride 10 ML IV 10/16 6925 7520 ConsultationConsultation Referral/Consult Name Dave Jones MD Building Code Administrator Called Urology Building Code Administrator Discussed with technology sales consultant Requested Call Time 034 Requested Call Date [...] B/P 146/80 / 0330 B/P Mean 107 10/16 0330 Pulse 90 / 0330 O2 Delivery Room air 10/16 0308 Temp 37.1 10/16 0308 Resp 18 10/16 0308 All vital signs available at the time of this entry have been reviewed. Clinical ImpressionClinical ImpressionPrimary Impression: Rupture of ureter Disposition DecisionHospitalize Hosp Physician Name Salinas Alba MD [facility] Physician Hospitalist Request Time 0508 Request Date [...] chart for administrative purposes only. at 1907RPT #:[id number] OF REPORTEDEmeradvanced care hospital of [facility] department kcasyd7118-11-31E88:54:00G.[id number] ilable for patient sczuWTLGVMTOAVSIDY5020-44-93N00:07:49 [facility]
[2023-04-27 13:37] LABS: SARS-CoV-2 Antigen Rapid Res Negative (Negative)
--- NOTE | 2023-04-27 14:12 | EDPHYS ---
Physician Documentation [facility] Name: Mathew Porter Age: 62 yrs Sex: Male : 1960 Arrival Date: 04/27/2023 Time: 12:43 Bed 20 Private MD: ED Physician Octavio Perez HPI: 04/27 13:19 This 62 yrs old Male presents to ER via Ambulatory with complaints of Problem With sb4 Urinary Catheter. 13:19 patient states that the stat lock on his johns catheter is malfunctioning and is sb4 requesting a replacement. also states the johns bag itself has holes it it. additionally reports cough and congestion x 1 month. has recently started smoking cigarettes again. no fever, chills, known sick contacts. Historical: - Allergies: 12:52 NKA; ko1 - PMHx: 12:52 Schizophrenia; ko1 - PSHx: 12:52 Urolift (December); ko1 - Immunization history:: Adult Immunizations unknown. - Social history:: Smoking status: Patient reports the use of cigarette tobacco products, smokes one-half pack cigarettes per day. ROS: 13:19 Constitutional: Negative for fever, chills, and weight loss, sb4 13:19 ENT: Positive for sinus congestion, 13:19 Respiratory: Positive for cough, 13:19 All other systems are negative, Exam: 13:19 Constitutional: This is a well developed, well nourished patient who is awake, alert, sb4 and in no acute distress. Head/Face: Normocephalic, atraumatic. Eyes: Extra-ocular motions intact. Periorbital areas with no swelling, redness, or edema. ENT: Mucous membranes moist. Cardiovascular: Regular rate and rhythm with a normal S1 and S2. Respiratory: Lungs have equal breath sounds bilaterally, clear to auscultation and percussion. No rales, rhonchi or wheezes noted. No increased work of breathing, no retractions or nasal flaring. Abdomen/GI: Soft, non-tender, no distension. Skin: Warm, dry with normal turgor. Normal color with no rashes, no lesions, and no evidence of cellulitis. MS/ Extremity: Pulses equal, no cyanosis. Neurovascular intact. Full, normal range of motion. Neuro: Awake and alert, GCS 15, oriented to person, place, time, and situation. Motor strength 5/5 in all extremities. Sensory grossly intact. Vital Signs: 12:49 BP 152 / 108; Pulse 90; Resp 16; Temp 97.6; Pulse Ox 100% ; Weight 70.76 kg; Height 5 ko1 ft. 10 in. ; 13:02 BP 140 / 93; Pulse 99; Resp 18; Pulse Ox 99% on R/A; me1 14:00 BP 138 / 96; Pulse 78; Resp 18; Pulse Ox 99% on R/A; me1 12:49 Body Mass Index 22.38 (70.76 kg, 177.8 cm) ko1 MDM: 12:51 Patient medically screened. sb4 13:19 Differential diagnosis: viral Infection, bacterial infection, URI, bronchitis, sb4 pneumonia. 14:10 Data reviewed: vital signs, nurses notes, lab test result(s), radiologic studies, and sb4 as a result, I will discharge patient. Counseling: I had a detailed discussion with the patient and/or guardian regarding the historical points, exam findings, and any diagnostic results supporting the discharge/admit diagnosis, the presence of at least one elevated blood pressure reading (>120/80) during this emergency department visit, lab results, radiology results, smoking cessation. 04/27 13:03 Order name: SARS RAPID; Complete Time: 13:38 sb4 04/27 13:03 Order name: Flu; Complete Time: 13:46 sb4 04/27 13:03 Order name: Chest Single View XRAY; Complete Time: 14:18 sb4 04/27 13:03 Order name: Misc. Order: change johns bag; Complete Time: 13:22 sb4 Administered Medications: No medications were administered Disposition: 17:00 Co-signature as Attending Physician, Octavio Perez MD I reviewed the patient's care rn provided by the Advanced Practice Provider and agree with the diagnosis and treatment plan. Disposition Summary: 04/27/23 14:11 Discharge Ordered Notes: Location: Home sb4 Problem: new sb4 Symptoms: have improved sb4 Condition: Stable sb4 Diagnosis - Mechanical complication of urinary (indwelling) catheter sb4 - Acute nasopharyngitis [common cold] sb4 Followup: sb4 - With: Emergency Department - When: As needed - Reason: Trouble breathing, Worsening of condition Discharge Instructions: - Discharge Summary Sheet sb4 - Steps to Quit Smoking, [id number] sb4 - Indwelling Urinary Catheter Care, Adult, [id number] sb4 Forms: - Medication Reconciliation Form sb4 - Thank You Letter sb4 - Antibiotic Education sb4 - Prescription Opioid Use sb4 - Patient Portal Instructions sb4 - Leadership Thank You Letter sb4 Signatures: Dispatcher [employer] Octavio Headley MD MD rn Oliver, Kathy, RN RN Ashia Tenorio PA-C PA-C sb4
--- NOTE | 2023-04-27 14:12 | ER ---
Nurse's Notes [facility] Name: Mathew Porter Age: 62 yrs Sex: Male : 1960 Arrival Date: 04/27/2023 Time: 12:43 Bed 20 Private MD: Diagnosis: Mechanical complication of urinary (indwelling) catheter;Acute nasopharyngitis [common cold] Presentation: 04/27 12:49 Chief complaint: Patient states: cough and congestion for a month and needs a new ko1 "castro" on leg for johns. Coronavirus screen: At this time, the client does not indicate any symptoms associated with coronavirus-19. Ebola Screen: No symptoms or risks identified at this time. Initial Sepsis Screen: Does the patient meet any 2 criteria? No. Patient's initial sepsis screen is negative. Does the patient have a suspected source of infection? No. Patient's initial sepsis screen is negative. Risk Assessment: Do you want to hurt yourself or someone else? Patient reports no desire to harm self or others. Onset of symptoms is unknown. 12:49 Method Of Arrival: Ambulatory ko1 12:49 Acuity: JAMILA 4 ko1 Triage Assessment: 12:52 General: Appears in no apparent distress. Behavior is calm, cooperative, appropriate ko1 for age. Pain: Denies pain. Historical: - Allergies: 12:52 NKA; ko1 - PMHx: 12:52 Schizophrenia; ko1 - PSHx: 12:52 Urolift (December); ko1 - Immunization history:: Adult Immunizations unknown. - Social history:: Smoking status: Patient reports the use of cigarette tobacco products, smokes one-half pack cigarettes per day. Screenin:57 [facility] ED Fall Risk Assessment (Adult) History of falling in the last 3 months, me1 including since admission No falls in past 3 months (0 pts) Confusion or Disorientation No (0 pts) Intoxicated or Sedated No (0 pts) Impaired Gait No (0 pts) Mobility Assist Device Used No (0 pt) Altered Elimination Yes (1 pt) Score/Fall Risk Level 0 - 2 = Low Risk Maintained a safe environment, Provided non-skid footwear, Hourly rounding (assess needs \\T\\ fall precautionary measures) done. Abuse screen: Denies threats or abuse. Nutritional screening: No deficits noted. Tuberculosis screening: No symptoms or risk factors identified. Assessment: 12:57 General: Appears comfortable, well developed, well nourished, Behavior is calm, me1 cooperative, appropriate for age, Reports cough and congestion for a month and needs a new "castro" on leg for johns. Pain: Denies pain. Neuro: Level of Consciousness is awake, alert, obeys commands, Oriented to person, place, time, situation, Appropriate for age. Cardiovascular: Capillary refill < 3 seconds Patient's skin is warm and dry. Respiratory: Reports shortness of breath cough that is persistent since one month ago. Airway is patent Respiratory effort is even, unlabored, Respiratory pattern is regular, symmetrical. : Johns in place to gravity drainage stat lock broke. Patient has catheter taped to his leg. Has asked for a new stat lock and a new drainage bag as his leaks on occasion. Vital Signs: 12:49 BP 152 / 108; Pulse 90; Resp 16; Temp 97.6; Pulse Ox 100% ; Weight 70.76 kg; Height 5 ko1 ft. 10 in. ; 13:02 BP 140 / 93; Pulse 99; Resp 18; Pulse Ox 99% on R/A; me1 14:00 BP 138 / 96; Pulse 78; Resp 18; Pulse Ox 99% on R/A; me1 12:49 Body Mass Index 22.38 (70.76 kg, 177.8 cm) ko1 ED Course: 12:46 Patient arrived in ED. mg5 12:47 Ashia Robertson PA-C is PHCP. sb4 12:47 Octavio Perez MD is Attending Physician. sb4 12:49 Radha Langley, DEENA is Primary Nurse. me1 12:52 Triage completed. ko1 12:52 Arm band placed on right wrist. Patient placed in an exam room, on a stretcher, on ko1 pulse oximetry, Patient notified of wait time. 12:57 Patient has correct armband on for positive identification. Bed in low position. Call me1 light in reach. Provided Education on: POC. Verbalized understanding. . 12:57 No provider procedures requiring assistance completed. Patient did not have IV access me1 during this emergency room visit. 13:22 Flu Sent. me1 13:22 SARS RAPID Sent. me1 13:22 Chest Single View XRAY Sent. me1 14:00 Chest Single View XRAY In Process Unspecified. EDMS Administered Medications: No medications were administered Medication: 12:57 VIS not applicable for this client. me1 Outcome: 14:11 Discharge ordered by . sb4 14:42 Discharged to home ambulatory, me1 14:42 Condition: stable 14:42 Discharge instructions given to patient, Instructed on discharge instructions, follow up and referral plans. Demonstrated understanding of instructions, follow-up care, 14:43 Patient left the ED. me1 Signatures: Dispatcher [employer] EDMS Elizabeth Canales, RN RN ko1 Ashia Robertson PA-C PA-C sb4 Radha Langley RN RN me1 Collette Tamayo mg5 Corrections: (The following items were deleted from the chart) 12:57 12:49 Chief complaint: Patient states: cough and congestion for a month and needs a new me1 "castro" on leg for andreas kaufman
--- NOTE | 2023-04-27 14:14 | RAD REPORT ---
EXAM DESCRIPTION: RAD - Chest Single View - 04/27/2023 1:58 pm CLINICAL HISTORY: Congestion;Cough COMPARISON: Chest Single View dated 01/20/2023 FINDINGS: Lines: None. Lungs: No evidence of edema or pneumonia. Pleural: No significant pleural effusions or pneumothorax. Cardiac: The heart size is within normal limits. Mediastinum: Within normal limits. Bones: No acute fractures. Other: None IMPRESSION: No acute cardiopulmonary disease.
[2023-04-27 15:05] VITALS: BP 138/96; TEMP 97.6; O2SAT 99
== END ==
LOC: ER 12:43
DX: T83.098A Other mechanical complication of other urinary catheter, initial encounter (principal); J00 Acute nasopharyngitis [common cold]; F17.210 Nicotine dependence, cigarettes, uncomplicated; Z11.52 Encounter for screening for COVID-19
CPT/HCPCS: 36415; 71045; 87804; 87811; 99283

== ENCOUNTER → 2023-05-08 | Emergency (ER) | payer OTHER ==
--- OUTSIDE RECORDS SUMMARY | 2023-05-08 10:35 | XMS REPORT | Continuity of Care Document ---
Author Name Unknown Address [address] [facility] [address] th[address] Address [address] [facility] 1 495 [place] [address] Care Team Providers Care Vocational Training Instructor Name Role Phone Salinas Alba I Attending [...] s DA Active U 10-16 00:00: 00 [facility] Encounters Start Date/Time End Date/Time Encounter Type Admission Type Attending Clinicians Care Facility Care Department Encounter ID Source 2023-01-21 06:38:00 2023-01-22 20:00:00 Inpatient EM Salinas Alba [facility]01 [id number] [facility] 2023-01-06 15:12:00 2023-01-11 21:08:00 Inpatient EM Salinas Alba [facility]01 [id number] [facility] 2022-10-16 05:03:00 2022-10-26 19:41:00 Inpatient EM Sailnas Alba [facility]01 [id number] [facility] Results Test Description Test Time Test Comments Results Resul t Comments Source - CT ABD PELVIS W/CONT 2023-01-05 8 13:00:00 [facility] 1960 Sex: M Name: MATHEW CASTILLO [facility] : 1960 Age/S: 62 / M [address] [place] [address] Blvd Unit #: [id number] Loc: [place] [address] Phys: Sofia Cheng TRAY LINE SUPERVISOR Acct: [id number] Dis Date: Status: ADM IN PHONE #: [phone] Exam Date: 01/22/2023 1231 FAX #: [phone] Reason: ABD PAIN EXAMS: CPT CODE: [id number] CT ABD PELVIS W/CONT 58928 EXAM: CT abdomen and pelvis with contrast [...] 1 Signed Report (CONTINUED) Name: MATHEW CASTILLO [facility] : 1960 Age/S: 62 / M [address] [place] [address] Blvd Unit #: [id number] Loc: [place] [address] Phys: Sofia Cheng TRAY LINE SUPERVISOR Acct: [id number] Dis Date: Status: ADM IN PHONE #: [phone] Exam Date: 01/22/2023 1231 FAX #: [phone] Reason: ABD PAIN EXAMS: CPT CODE: [id number] CT ABD PELVIS W/CONT 14813 (Continued) abdominal aortic aneurysm. Pelvic organs/bladder: Moderate [...] M.D. CC: Lakhwinder Guillermo MD; Sofia Cheng TRAY LINE SUPERVISOR; Salinas Dukes MD Technologist:Rick Moran Jr, RT(R)(CT) CTDI: DLP: Trnscb Date/Time: 01/22/2023 (1300) t.SDR.BC0 Orig Print D/T: S: 01/22/2023 (7993) PAGE 2 Signed Report [id number] 07:46:00* Test Item Value Reference Range Interpretation Comme nts PHOSPHOROUS (test code = PHOS) 2.4 MG/DL 2.5-4.9 L [id number] 07:46:00* Test Item Value Reference Range Interpretation Comme nts MAGNESIUM (test code = MAG) 1.69 mg/dL 1.6-2.6 N NOTE: NEW NORMAL RANGE CBC W/AUTO [id number] 07:05:00* Test Item Value Reference Range Interpretation [...] 0.00 x10 3/uL 0.0-0.1 N BASIC METABOLIC [id number] 06:08:00* Test Item Value Reference Range Interpretation [...] CA) 8.2 mg/dL 8.0-10.5 N CBC W/AUTO [id number] 05:57:00* Test Item Value Reference Range Interpretation [...] c ode = MDIFF) NO CBC W/AUTO [id number] 08:15:00* Test Item Value Reference Range Interpretation [...] 0.00 x10 3/uL 0.0-0.1 N BASIC METABOLIC [id number] 07:28:00* Test Item Value Reference Range Interpretation [...] CA) 8.6 mg/dL 8.0-10.5 N BASIC METABOLIC [id number] 07:46:00* Test Item Value Reference Range Interpretation [...] CA) 8.7 mg/dL 8.0-10.5 N CBC W/AUTO [id number] 07:34:00* Test Item Value Reference Range Interpretation [...] 0.00 x10 3/uL 0.0-0.1 N CBC W/AUTO [id number] 08:43:00* Test Item Value Reference Range Interpretation [...] c ode = MDIFF) NO BASIC METABOLIC [id number] 07:14:00* Test Item Value Reference Range Interpretation [...] CA) 7.8 mg/dL 8.0-10.5 L CBC W/AUTO [id number] 08:58:00* Test Item Value Reference Range Interpretation [...] c ode = MDIFF) NO BASIC METABOLIC [id number] 08:27:00* Test Item Value Reference Range Interpretation [...] HGBA1C%) 5.1 %A1C 4.8-6.0 N CBC W/AUTO [id number] 08:05:00* Test Item Value Reference Range Interpretation [...] (test code = MDIFF) NO BASIC METABOLIC [id number] 07:46:00* Test Item Value Reference Range Interpretation [...] = LDL) 104.0 mg/dL 0-100 H <100 EPMDCWQ69 0-129 NEAR OPTIMAL/ABOVE [id number] PFILACFLPW077-207 HIGH>OJ=574 VERY HIGH*Guidelines provided by the National Cholesterol EducationProgram Adult Treatment Panel III [id number] 07:46:00* Test Item Value Reference Range Interpretation Comme nts PHOSPHOROUS (test code = PHOS) 3.4 MG/DL 2.5-4.9 N [id number] 07:46:00* Test Item Value Reference Range Interpretation Comme nts MAGNESIUM (test code = MAG) 1.69 mg/dL 1.6-2.6 N NOTE: NEW NORMAL RANGE TSH REFLEX TO [id number] 07:46:00* Test Item Value Reference Range Interpretation Comme nts TSH REFLEX TO FT4 (test code = TSHREFLEX) 2.37 IU/mL 0.42-5.47 N LACTIC [id number] 05:48:00* Test Item Value Reference Range Interpretation Comme nts LACTIC ACID (test code = LACT) 1.1 mmol/L 0.4-1.9 N LACTIC ACID [id number] 02:38:00* Test Item Value Reference Range Interpretation Comme nts LACTIC ACID REPEAT (test cod e = LACTR) 0.9 mmol/l 0.4-1.9 N CALLED SEVERINO @01:18 TO REMIND WE NEEDED REPEATLACTIC [id number] 22:36:00* Test Item Value Reference Range Interpretation Comme nts LACTIC ACID (test code = LACT) 2.9 mmol/L 0.4-1.9 H UA RFLX MICR CULT IF [id number] 22:35:00* Test Item Value Reference Range Interpretation [...] Less than 14 days- CT ABD PELVIS W/[id number] 22:24:00 [facility] RENOName: MATHEW CASTILLO : 1960 Sex: M Name: MATHEW CASTILLO [facility] : 1960 Age/S: 62 / M [address] [place] [address] Blvd Unit #: [id number] Loc: [place] [address] Phys: Vee Horton Acct: [id number] Dis Date: Status: [facility] ER PHONE #: [phone] Exam Date: 01/04/2023 0940 FAX #: [phone] Reason:GROSS HEMATURIA EXAMS: CPT CODE: [id number] CT ABD PELVIS W/CONT 40802 H 20 TIME OF STUDY: 01/04/2023 7:55 PM REASON FOR EXAM: GROSS HEMATURIA COMPARISON: None. TECHNIQUE: Helical post contrast enhanced images were obtained through the abdomen and pelvis. Sagittal and coronal reformats were obtainedand reviewed. One or more of the following radiation dose reduction techniques was used: automated exposure control, adjustment of mA and/or KV according to patient size, and/or utilization of iterative reconstruction technique. FINDINGS: CT Abdomen: The included lung bases are clear. There is a moderate hiatal hernia. Gallbladder is mildly distended. There is cholelithiasis present. The liver, p ancreas, kidneys, adrenal glands and spleen all have normal appearance. There is no mesenteric or retroperitoneal adenopathy. The bowel loops are nondilated. A normal appendix is visualized. There isno free fluid or free air. The osseous structures are age-appropriate. CT Pelvis: Bladder is decompressed with a Black in place which significantly limits evaluation. The prostate gland is severely e nlarged measuring approximately 7.4 x 6.2 cm in maximum dimension. Surgical clips are noted in the prostate. IMPRESSION: 1. Prostatomegaly. Decompressed bladder with a Black in place. 2. No hydronephrosis. No enhancing renal masses. 3. Cholelithiasis and mildly distended gallbladder. 4. Moderate hiatal hernia. PAGE 1 Signed Report (CONTINUED) Name: MATHEW CASTILLO [facility] : 1960 Age/S: 62 / M [address] [place] [address] Unit #: [id number] Loc: [place] [address] Phys: Vee Horton Acct: [id number] Dis Date: Status: REG ER PHONE #: [phone] Exam Date: 01/04/2023 0940 FAX #: [phone] Reason: GROSS HEMATURIA EXAMS: CPT CODE: [id number] CT ABD PELVIS W/CONT 43297 (Continued) at 2224 Reported and signed by: Zia Magaña M.D. CC: Lakhwinder Guillermo MD; Vee Horton; Javier Sullivan MD Technologist:Latoya Moeller, RT(R); Lesvia Humphries CTDI: DLP: Trnscb Date/Time: 01/04/2023 (2223) t.SDR.SI1 Orig Print D/T: S: 01/04/2023 (2226) PAGE 2 Signed ReportCOMPREHENSIVE METABOLIC [id number] 21:07:00* Test Item Value Reference Range Interpretation [...] ALKP) 60 IUnit/L 20-125 N CBC W/AUTO [id number] 20:38:00* Test Item Value Reference Range Interpretation [...] (test code = MDIFF) NO BASIC METABOLIC [id number] 08:30:00* Test Item Value Reference Range Interpretation Comme nts SODIUM (test code = NA) 140 mEq/L 134-147 N POTASSIUM (test code = K) 2.8 mEq/L 3.4-5.0 LL Critical result called to ELLE SINGH RN by RyanS22 at 0609 10/16/22Nurse read back resut and [...] reported result: 4.9 mg/dLEdited by: KRISTEN on 10/31/22:456456 0829: CA previously reported as: 4.9 *L mg/dL Critical [place] [address]/16/22 Nurse read back result and tech confirmed it's correct? Y GLUCOSE [id number] 17:27:00* Test Item Value Reference Range Interpretation Comme nts GLUCOSE BEDSIDE (test code = GLUBED) 109 MG/DL 70-110 N Performed by teto tse at [facility] GLUCOSE [id number] 12:34:00* Test Item Value Reference Range Interpretation Comme nts GLUCOSE BEDSIDE (test code = GLUBED) 95 MG/DL 70-110 N Performed by cer tified humid system operator at [facility] GLUCOSE [id number] 08:49:00* Test Item Value Reference Range Interpretation Comme nts GLUCOSE BEDSIDE (test code = GLUBED) 117 MG/DL 70-110 H Performed by cer tified humid system operator at [facility] BASIC METABOLIC [id number] 07:57:00* Test Item Value Reference Range Interpretation [...] = CA) 8.1 mg/dL 8.0-10.5 N GLUCOSE [id number] 17:07:00* Test Item Value Reference Range Interpretation Comme nts GLUCOSE BEDSIDE (test code = GLUBED) 127 MG/DL 70-110 H Performed by cer tified humid system operator at [facility] GLUCOSE [id number] 12:26:00* Test Item Value Reference Range Interpretation Comme nts GLUCOSE BEDSIDE (test code = GLUBED) 123 MG/DL 70-110 H Performed by cer tified humid system operator at [facility] GLUCOSE [id number] 07:59:00* Test Item Value Reference Range Interpretation Comme nts GLUCOSE BEDSIDE (test code = GLUBED) 92 MG/DL 70-110 N Performed by cer violeta humid system operator at [facility] BASIC METABOLIC [id number] 07:38:00* Test Item Value Reference Range Interpretation [...] CA) 7.8 mg/dL 8.0-10.5 L CBC W/AUTO [id number] 07:27:00* Test Item Value Reference Range Interpretation [...] REQUIRED (test code = MDIFF) NO GLUCOSE [id number] 21:25:00* Test Item Value Reference Range Interpretation Comme nts GLUCOSE BEDSIDE (test code = GLUBED) 154 MG/DL 70-110 H Performed by cer tified humid system operator at [facility] GLUCOSE [id number] 17:43:00* Test Item Value Reference Range Interpretation Comme nts GLUCOSE BEDSIDE (test code = GLUBED) 73 MG/DL 70-110 N Performed by cer tified humid system operator at [facility] GLUCOSE [id number] 10:08:00* Test Item Value Reference Range Interpretation Comme nts GLUCOSE BEDSIDE (test code = GLUBED) 87 MG/DL 70-110 N Performed by cer tified humid system operator at [facility] GLUCOSE [id number] 20:12:00* Test Item Value Reference Range Interpretation Comme nts GLUCOSE BEDSIDE (test code = GLUBED) 139 MG/DL 70-110 H Performed by cer tified humid system operator at [facility] GLUCOSE [id number] 17:32:00* Test Item Value Reference Range Interpretation Comme nts GLUCOSE BEDSIDE (test code = GLUBED) 79 MG/DL 70-110 N Performed by cer tified humid system operator at [facility] GLUCOSE [id number] 12:14:00* Test Item Value Reference Range Interpretation Comme nts GLUCOSE BEDSIDE (test code = GLUBED) 98 MG/DL 70-110 N Performed by cer tified humid system operator at [facility] GLUCOSE [id number] 08:36:00* Test Item Value Reference Range Interpretation Comme nts GLUCOSE BEDSIDE (test code = GLUBED) 92 MG/DL 70-110 N Performed by cer tified humid system operator at [facility] BASIC METABOLIC [id number] 07:50:00* Test Item Value Reference Range Interpretation [...] code = CA) 7.6 mg/dL 8.0-10.5 L [id number] 07:50:00* Test Item Value Reference Range Interpretation Comme nts MAGNESIUM (test code = MAG) 1.53 mg/dL 1.80-2.40 L - CTA CHEST FOR [id number] 00:00:00 [facility] : 1960 Sex: M Name: MATHEW CASTILLO [facility] : 1960 Age/S: 62 / M [address] [place] [address] Bl Unit #: [id number] Loc: [place] [address] Phys: Sofia Cheng TRAY LINE SUPERVISOR Acct: [id number] Dis Date:Status: ADM IN PHONE #: [phone] Exam Date: 10/23/20221723 FAX #: [phone] Reason: ELEVATED D DIMER EXAMS: CPT CODE: [id number] [place] [address] PROCEDURE INFORMATION: Exam: CTA ChestWith Contrast Exam [...] 1 Signed Report (CONTINUED) Name: MATHEW CASTILLO [facility] : 1960 Age/S: 62 / M [address] [place] [address] Unit #: [id number] Loc: [id number] Phys: Sofia Cheng TRAY LINE SUPERVISOR Acct: [id number] Dis Date: Status: ADM IN PHONE #: [phone] Exam Date: 10/23/2022 1722 FAX #: [phone] Reason: ELEVATED D DIMER EXAMS: CPT CODE: [id number] [place] [address] (Continued) flexure compatible with colitis incompletely evaluated. [...] by: Hayden Rg M.D. CC: Sofia Cheng TRAY LINE SUPERVISOR; Salinas Dukes MD Technologist:Latoya Pérez RT(R)(CT); . CTDI: DLP: Trnscb Date/Time: 10/23/2022 (2012) tJosé MiguelSDR.JT18 Orig Print D/T: S: 10/23/2022 (2012) PAGE 2 Signed ReportGLUCOSE [id number] 20:23:00* Test Item Value Reference Range Interpretation Comme nts GLUCOSE BEDSIDE (test code = GLUBED) 123 MG/DL 70-110 H Performed by cer tified humid system operator at [facility] GLUCOSE [id number] 17:34:00* Test Item Value Reference Range Interpretation Comme nts GLUCOSE BEDSIDE (test code = GLUBED) 132 MG/DL 70-110 H Performed by [facility] tified humid system operator at [facility] GLUCOSE [id number] 11:57:00* Test Item Value Reference Range Interpretation Comme nts GLUCOSE BEDSIDE (test code = GLUBED) 118 MG/DL 70-110 H Performed by cer tified humid system operator at [facility] GLUCOSE [id number] 08:22:00* Test Item Value Reference Range Interpretation Comme nts GLUCOSE BEDSIDE (test code = GLUBED) 100 MG/DL 70-110 N Performed by [facility] [employer] humid system operator at [facility] BASIC METABOLIC [id number] 08:05:00* Test Item Value Reference Range Interpretation [...] code = CA) 7.8 mg/dL 8.0-10.5 L [id number] 08:05:00* Test Item Value Reference Range Interpretation Comme nts MAGNESIUM (test code = MAG) 1.72 mg/dL 1.80-2.40 L GLUCOSE [id number] 21:10:00* Test Item Value Reference Range Interpretation Comme nts GLUCOSE BEDSIDE (test code = GLUBED) 148 MG/DL 70-110 H Performed by cer tified humid system operator at [facility] GLUCOSE [id number] 17:29:00* Test Item Value Reference Range Interpretation Comme nts GLUCOSE BEDSIDE (test code = GLUBED) 102 MG/DL 70-110 N Performed by cer tified humid system operator at [facility] GLUCOSE [id number] 11:54:00* Test Item Value Reference Range Interpretation Comme nts GLUCOSE BEDSIDE (test code = GLUBED) 104 MG/DL 70-110 N Performed by [facility] [employer] humid system operator at [facility] CBC W/MANUAL [id number] 10:35:00* Test Item Value Reference Range Interpretation [...] (test code = PLTMORPH) LARGE PLATELETS GLUCOSE [id number] 07:57:00* Test Item Value Reference Range Interpretation Comme [facility] GLUCOSE BEDSIDE (test code = GLUBED) 95 MG/DL 70-110 N Performed by cer tified humid system operator at [facility] C REACTIVE [id number] 07:48:00* Test Item Value Reference Range Interpretation Comme [facility] C REACTIVE PROTEIN (test cod e = CRP) 36.0 mg/L <10.0 H BASIC METABOLIC [id number] 07:40:00* Test Item Value Reference Range Interpretation Comme [facility] SODIUM (test code = NA) 140 mEq/L [...] code = CA) 7.3 mg/dL 8.0-10.5 L [id number] 07:40:00* Test Item Value Reference Range Interpretation Comme nts MAGNESIUM (test code = MAG) 1.50 mg/dL 1.80-2.40 L [id number] 07:04:00* Test Item Value Reference Range Interpretation Comme nts D-DIMER (test code = DDIMER) 5949 ng/mlFEU See_Comment HH Critical result called to Brigido RUIZLAB.JJ1 at 0701 10/21/22Nurse read back result and tech confirmed it's correct? YESTHROMBOSIS AND/OR PULMONARY EMBOLISM AND THE CLINICAL CUT- OFF VALUE FOR EXCLUSION (500 ng/mL FEU) OF THESE CONDITIONSIS VALIDATED BY THE BAKERY DECORATOR OF THE METHOD. A NEGATIVE D-DIMER RESULT [...] this result as normal/abnormal. - DUP VEIN [id number] 00:00:00 [facility] HUANGName: MATHEW CASTILLO : 1960 Sex: M Name: MATHEW CASTILLO [facility] : 1960 Age/S: 62 / M [address] [place] [address] Blvd Unit #: [id number] Loc: [place] [address] Phys: Skip Jaffe MD Acct: [id number] Dis Date: Status: ADM IN PHONE #: [phone] Exam Date: 10/21/2022820 FAX #: [phone] Reason: R/o DVT EXAMS: CPT CODE: [id number] DUP VEIN ASAEL 70096 PROCEDURE INFORMATION: Exam: US Duplex Lower ExtremityVeins, [...] Ac M.D. CC: Skip Jaffe MD; Salinas Paris MD Technologist: [facility] Date/Time: 10/21/2022 (911) t.SDR.AB61 Orig Print D/T:S: 10/21/2022 (911) Probe: PAGE 1 Signed Report GLUCOSE [id number] 20:40:00* Test Item Value Reference Range Interpretation Comme [facility] GLUCOSE BEDSIDE (test code = GLUBED) 148 MG/DL 70-110 H Performed by cer tified humid system operator at [facility] GLUCOSE [id number] 16:46:00* Test Item Value Reference Range Interpretation Comme nts GLUCOSE BEDSIDE (test code = GLUBED) 118 MG/DL 70-110 H Performed by cer tified humid system operator at [facility] GLUCOSE [id number] 16:46:00* Test Item Value Reference Range Interpretation Comme [facility] GLUCOSE BEDSIDE (test code = GLUBED) 122 MG/DL 70-110 H Performed by cer tified humid system operator at [facility] TROP-I HIGH [id number] 15:04:00* Test Item Value Reference Range Interpretation Comme [facility] TROP-I HIGH SENSITIVITY (test code = TROPIHS) [...] URL. These results were obtained using Siem[employer] Awdio IM TnIHreagent. Results from different methodologies should not becompared to one another as quantitative results and URLs mayvary by method. BASIC METABOLIC [id number] 15:04:00* Test Item Value Reference Range Interpretation [...] CA) 7.1 mg/dL 8.0-10.5 L TROP-I HIGH [id number] 10:07:00* Test Item Value Reference Range Interpretation [...] URL. These results were obtained using [employer] Awdio IM TnIHreagent. Results from different methodologies should not becompared to one another as quantitative results and URLs mayvary by method. CBC W/AUTO [id number] 09:54:00* Test Item Value Reference Range Interpretation [...] (test code = MDIFF) NO TROP-I HIGH [id number] 09:24:00* Test Item Value Reference Range Interpretation [...] URL. These results were obtained using [employer] Awdio IM TnIHreagent. Results from different methodologies should not becompared to one another as quantitative results and URLs mayvary by method. GLUCOSE [id number] 08:49:00* Test Item Value Reference Range Interpretation Comme nts GLUCOSE BEDSIDE (test code = GLUBED) 102 MG/DL 70-110 N Performed by teto mcdaniel humid system operator at [facility] COMPREHENSIVE METABOLIC [id number] 02:08:00* Test Item Value Reference Range Interpretation [...] code = ALKP) 47 IUnit/L 20-125 N [id number] 02:08:00* Test Item Value Reference Range Interpretation [facility] LIPASE (test code = LIP) 57 U/L 13-57 N PROTHROMBIN [id number] 02:05:00* Test Item Value Reference Range Interpretation [facility] PROTHROMBIN TIME PATIENT (test code = [...] Infarction (to prevent recurrent infarct). THROMBOPLASTIN TIME [id number] 02:05:00* Test Item Value Reference Range Interpretation [facility] THROMBOPLASTIN TIME PARTIAL (test code = PTT) 26.1 Seconds 25.0-39.5 N Therapeutic Rang e: 50.4 - 88.3 Seconds Effective 07/21/2018 LACTIC [id number] 01:59:00* Test Item Value Reference Range Interpretation [facility] LACTIC ACID (test code = LACT) 1.1 mmol/L 0.4-1.9 N CBC W/AUTO [id number] 01:51:00* Test Item Value Reference Range Interpretation Comme [facility] WHITE BLOOD CELL (test code = WBC) [...] = MDIFF) NO - XR CHEST 1 [id number] 00:00:00 [facility] : 1960 Sex: M FAX: Sofia Cheng NP [phone] [place]: St: ADM FAX: Salinas Callahan Jacqui [phone] Name: AN[facility]MATHEW [facility] : 1960 Age/S: 62/M [address] [place] [address] Unit #: [id number] Loc:G.66[address] [place] [address] Phys: Sofia Cheng NP Acct: [id number] Dis Date: Status: ADM IN PHONE #: [phone] Exam Date: 10/20/20227 FAX #: [phone] Reason: Sepsis EXAMS: CPT CODE: [id number] XR CHEST 1 V 44651 PROCEDURE INFORMATION: Exam: XR Chest Exam date [...] by: Reinaldo Jacobs M.D. CC: Sofia Cheng TRAY LINE SUPERVISOR; Salinas Dukes MD Technologist: Xochitl Dubon, (R) Trnscrd Date/Time/By: 10/20/2022 (213) : By: [email or web address] Orig Print D/T: S: 10/20/2022 (5) PAGE 1 Signed ReportGLUCOSE [id number] 21:00:00* Test Item Value Reference Range Interpretation Comme nts GLUCOSE BEDSIDE (test code = GLUBED) 135 MG/DL 70-110 H Performed by cer violeta humid system operator at [facility] URINALYSIS [id number] 20:03:00* Test Item Value Reference Range Interpretation [...] MUCU) 1+ /LPF NONE SEEN UR SODIUM [id number] 20:03:00* Test Item Value Reference Range Interpretation Comme nts UR SODIUM RANDOM (test code = ALPHONSE) 102 MEQ/L The Reference Ra nge and Method Performance specificationshave not been established for this fluid. The test resultshould be correlated into the clinical context forinterpretation. UR PROTEIN [id number] 20:03:00* Test Item Value Reference Range Interpretation Comme nts UR PROTEIN RANDOM (test code = PROTU) 79 mg/dL UR CREATININE [id number] 20:03:00* Test Item Value Reference Range Interpretation Comme nts UR CREATININE RANDOM (test code = CREATU) 111.9 mg/dL The Reference Ra nge and Method Performance specificationshave not been established for this fluid. The test resultshould be correlated into the clinical context forinterpretation. UR OSMOLALITY [id number] 20:03:00* Test Item Value Reference Range Interpretation Comme nts UR OSMOLALITY RANDOM (test c ode = OSMOU) 575 MOS/KG 300-1000 UR OSMOLALITY [id number] 20:02:00* Test Item Value Reference Range Interpretation Comme nts UR OSMOLALITY RANDOM (test c ode = OSMOU) 575 MOS/KG 300-1000 N GLUCOSE [id number] 17:18:00* Test Item Value Reference Range Interpretation Comme nts GLUCOSE BEDSIDE (test code = GLUBED) 122 MG/DL 70-110 H Performed by cer tified humid system operator at [facility] GLUCOSE [id number] 12:48:00* Test Item Value Reference Range Interpretation Comme nts GLUCOSE BEDSIDE (test code = GLUBED) 109 MG/DL 70-110 N Performed by cer tified humid system operator at [facility] GLUCOSE [id number] 07:53:00* Test Item Value Reference Range Interpretation Comme nts GLUCOSE BEDSIDE (test code = GLUBED) 96 MG/DL 70-110 N Performed by [employer] tified humid system operator at [facility] BASIC METABOLIC [id number] 07:51:00* Test Item Value Reference Range Interpretation [...] code = CA) 7.5 mg/dL 8.0-10.5 L OGDDTECFR6675-31-58 07:51:00* Test Item Value Reference Range Interpretation Comme nts MAGNESIUM (test code = MAG) 1.65 mg/dL 1.80-2.40 L CBC W/AUTO [id number] 07:07:00* Test Item Value Reference Range Interpretation [...] (test c ode = MDIFF) NO GLUCOSE RENFFJQ1703-79-52 20:44:00* Test Item Value Reference Range Interpretation Comme nts GLUCOSE BEDSIDE (test code = GLUBED) 116 MG/DL 70-110 H Performed by cer [employer] humid system operator at [facility] GLUCOSE [id number] 18:07:00* Test Item Value Reference Range Interpretation Comme nts GLUCOSE BEDSIDE (test code = GLUBED) 98 MG/DL 70-110 N Performed by cer tified humid system operator at [facility] GLUCOSE [id number] 12:23:00* Test Item Value Reference Range Interpretation Comme nts GLUCOSE BEDSIDE (test code = GLUBED) 135 MG/DL 70-110 H Performed by cer tified humid system operator at [facility] GLUCOSE UJUHKOX9524-82-20 11:22:00* Test Item Value Reference Range Interpretation Comme nts GLUCOSE BEDSIDE (test code = GLUBED) 104 MG/DL 70-110 N Performed by cer tified humid system operator at [facility] BASIC METABOLIC MYOGS9619-08-09 08:12:00* Test Item Value Reference Range Interpretation [...] code = CA) 7.4 mg/dL 8.0-10.5 L ONGSWPPTH9566-01-41 08:12:00* Test Item Value Reference Range Interpretation Comme nts MAGNESIUM (test code = MAG) 1.48 mg/dL 1.80-2.40 L CBC W/AUTO [id number] 08:09:00* Test Item Value Reference Range Interpretation [...] (test c ode = MDIFF) NO GLUCOSE UBOUQQR5258-89-96 05:56:00* Test Item Value Reference Range Interpretation Comme nts GLUCOSE BEDSIDE (test code = GLUBED) 104 MG/DL 70-110 N Performed by cer tified humid system operator at [facility] GLUCOSE [id number] 03:31:00* Test Item Value Reference Range Interpretation Comme nts GLUCOSE BEDSIDE (test code = GLUBED) 129 MG/DL 70-110 H Performed by [employer] tified humid system operator at [facility] GLUCOSE [id number] 12:50:00* Test Item Value Reference Range Interpretation Comme nts GLUCOSE BEDSIDE (test code = GLUBED) 177 MG/DL 70-110 H Performed by cer tified humid system operator at [facility] CBC W/AUTO [id number] 10:14:00* Test Item Value Reference Range Interpretation [...] 0.00 x10 3/uL 0.0-0.1 N VITAMIN D 41-OXRFRNX4787-96-13 08:19:00* Test Item Value Reference Range Interpretation Comme nts VITAMIN D 25-HYDROXY (test c ode = VITD25) 25.5 ng/mL 30-100 L Indication for Test: PTH DisorderCOMPREHENSIVE METABOLIC [id number] 08:14:00* Test Item Value Reference Range Interpretation [...] code = ALKP) 62 IUnit/L 20-125 N GFXNNXJWSLH6890-48-90 08:14:00* Test Item Value Reference Range Interpretation Comme nts PHOSPHOROUS (test code = PHOS) 2.6 MG/DL 2.5-4.9 N [id number] 08:14:00* Test Item Value Reference Range Interpretation Comme nts MAGNESIUM (test code = MAG) 1.50 mg/dL 1.80-2.40 L GLUCOSE [id number] 07:40:00* Test Item Value Reference Range Interpretation Comme nts GLUCOSE BEDSIDE (test code = GLUBED) 105 MG/DL 70-110 N Performed by cer tified humid system operator at [facility] GLUCOSE [id number] 17:26:00* Test Item Value Reference Range Interpretation Comme [facility] GLUCOSE BEDSIDE (test code = GLUBED) 113 MG/DL 70-110 H Performed by [employer] humid system operator at [facility] PROTHROMBIN [id number] 15:23:00* Test Item Value Reference Range Interpretation Comme [facility] PROTHROMBIN TIME PATIENT (test code = PTP) [...] (to prevent recurrent infarct). TSH REFLEX TO [id number] 14:32:00* Test Item Value Reference Range Interpretation Comme [facility] TSH REFLEX TO FT4 (test code = TSHREFLEX) 1.59 IU/mL 0.42-5.47 N HGBA1C%2022-10-16 14:19:00* Test Item Value Reference Range Interpretation Comme [facility] HGBA1C% (test code = HGBA1C%) 5.5 %A1C 4.8-6.0 N [id number] 14:13:00* Test Item Value Reference Range Interpretation Comme [facility] MAGNESIUM (test code = MAG) 1.91 mg/dL 1.80-2.40 N COMPREHENSIVE METABOLIC [id number] 14:13:00* Test Item Value Reference Range Interpretation Comme [facility] SODIUM (test code = NA) 138 mEq/L [...] = ALKP) 62 IUnit/L 20-125 N GLUCOSE ZPNFXFR5586-21-76 12:54:00* Test Item Value Reference Range Interpretation Comme nts GLUCOSE BEDSIDE (test code = GLUBED) 102 MG/DL 70-110 N Performed by [employer] humid system operator at [facility] GLUCOSE [id number] 10:14:00* Test Item Value Reference Range Interpretation Comme nts GLUCOSE BEDSIDE (test code = GLUBED) 110 MG/DL 70-110 N Performed by [employer] humid system operator at [facility] CBC W/AUTO [id number] 05:58:00* Test Item Value Reference Range Interpretation [...] Notes Date/Time Note Provider Source 2023-02-14 02:12:00 [id number] VK0aht/emhy9y4aq8rz7oRqENQlE3 +pf9HVQVfAG2TF/uCsAP3uvGQ/z5089-25-18T05:12:00 [facility] ([facility])Discharge SummaryREPORT#:[id number] REPORT STATUS: SignedREPORT INITIALIZATION DATE:02/14/23 TIME: 211 PATIENT: MATHEW CASTILLO UNIT #: [id number]#: [id number] ROOM/BED: 5507-1DOB: [birth year] AGE: 62 SEX: M [...] HYDRONEPHROSIS J98.11 ATELECTASIS N17.9 ACUTE KIDNEY FAILURE, MTCGDFRMRBCP50.8 OTHER RETENTION OF URINE D72.829 ELEVATED WHITE BLOOD CELL COUNT, UNSPECIFIED E83.39 OTHER DISORDERS OF PHOSPHORUS METABOLISM F20.9 SCHIZOPHRENIA, UNSPECIFIED E83.42 HYPOMAGNESEMIA I10 ESSENTIAL (PRIMARY) HYPERTENSION 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 N40.1 BENIGN PROSTATIC HYPERPLASIA WITH LOWER URINARY TRACT SYMP Hospital course:62-year-old male with last medical history of, BPH-s/p UroLift 01/03/2023, schizophrenia was transferred from [facility] ER with acute kidney injury and urinary [...] (Auto) (14.0 - 32.0 %) 7.1 L [place] % (Auto) (4.8 - 9.0 %) 8.1 Eos % (Auto) (0.3 - 3.7 %) 0.4 Baso % (Auto) (0.0 - 2.0 %) 0.1 Neut # (Auto) (2.0 - 7.6 x10 3/uL) 9.37 H Lymph # (Auto) (1.0 - 3.8 x10 3/uL) 0.79 L [place] # (Auto) (0.1 - 0.8 x10 3/uL) [...] 3/uL) 0.[address] ABD PELVIS W/CONT 91271 EXAM: CT abdomen and pelvis with contrast [...] Care Discharge InstructionsAdditional Discharge Routines: PCP Follow-Up, Solutions Manager Follow-Up)( Diet: Regular Follow-up AppointmentsPCP follow up: PCP: Lakhwinder Guillermo MD PCP follow up timeframe: In 5 daysAttending Physician: Attending Physician: Salinas Alba MD Attending physician follow up timeframe: In 1-2 weeksConsulting provider 1: Provider 1: Dave Jones MD Specialty: Urology Consult follow up timeframe: In 1-[address] [place] [address] #:[id number] OF REPORTDSDischarge uzejomh1893-80-46P81:12:00G.BKQM99479082-4482VJEq ailable for patient fdcwKXOGLHRZYMGDOS4969-39-76F94:16:15 [facility] 2023-02-04 04:06:00 [id number] 8kLks3rts4ODSBnmtKS4wfxu40X50 TWjX+D/KukQBqoYidP3P56+mJ7P6630-99-08J55:06:00 [facility] ([facility]Discharge SummaryREPORT#:[id number] REPORT STATUS: SignedREPORT INITIALIZATION DATE:02/04/23 TIME: 0406 PATIENT: ANNAMATHEW SINCERE UNIT #: [id number]#: [id number] [facility] AGE: 62 SEX: M ATTEND: Salinas [...] lift yesterday by Dr. Jones transferred from [place] for urology evaluation secondary tohematuria after bladder irrigation failed. Patient was seen and evaluated by Dr. 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 [facility] with [facility].Abnormal labs: WBC 16.7, lctic acid-2.9, ua with trace leukocyte estrace and wbc>50CT abd/pelvis:1. Prostatomegaly. Decompressed bladder with a Black in place.2. No hydronephrosis. No enhancing renal masses.3. Cholelithiasis and mildly distended gallbladder.4. Moderate hiatal hernia.Patient was admitted for further evaluation and treatment. Urology consult was placed.01/06 Vital signs within normal limits.Hematuria was improved.01/07 [...] Room air 01/11 1631 Temp 36.5 01/11 163 Pulse 74 01/11 163 Resp 14 01/11 163 PATIENT WEIGHT: Weight (lb): Weight (oz): Weight [...] range of motion, normal sensory, normal motor functionNeuro/LITIGATION EXAMINER: alert, oriented X 3Skin: dry, intact, no [...] % (Auto) (14.0 - 32.0 %) 20.8 [place] % (Auto) (4.8 - 9.0 %) 7.7 Eos % (Auto) (0.3 - 3.7 %) 8.1 H Baso % (Auto) (0.0 - 2.0 %) 0.7 Neut # (Auto) (2.0 - 7.6 x10 3/uL) 4.51 Lymph # (Auto) (1.0 - 3.8 x10 3/uL) 1.51 [place] # (Auto) (0.1 - 0.8 x10 3/uL) [...] 3/uL) 0.[address] ABD PELVIS W/CONT 53443 H 20 TIME OF STUDY: 01/04/2023 7:55 [...] gallbladder. 4. Moderate hiatal hernia. [facility] Lak[facility]inder Guill[facility] MD )( Discharge to: Home/Self Care Discharge InstructionsAdditional Discharge Routines: PCP Follow-Up, Solutions Manager Follow-Up)( Diet: Cardiac Follow-up AppointmentsPCP follow up: PCP: Lakhwinder Guillermo MD PCP follow up timeframe: In 5 days Special instructions:CALL TO MAKE APPOINTMENTConsulting provider 1: Provider 1: Dave Jones MD Specialty: Urology Special instructions:CALL TO SCHEDULE APPOINTMENT at [address] [facility] #:[id number] OF REPORTDSDischarge bjhndcn8563-42-67U53:06:00G.SDGP20852525-3935MOAx ailable for patient ysdwOYMDLORNIMNEUY1097-99-30L26:36:15 [facility] 2023-01-27 18:31:00 [id number] c4pDWc/QKUjerh/eeSdpq1OqcVRW3 AhHLqXNh8c5GQ77M5se95FwyqUC2188-50-81I31:31:90352 3-0230 [place] [address] PATIENT NAME: MATHEW CASTILLO ADMIT DATE: 01/06/23ACCOUNT NO: [id number] ROOM NO: [facility] AGE: 62 REPORT TYPE: 360 - QUERY RESPONSE DOCUMENT SEX: M ADMITTING PHYSICIAN:Salinas Alba MD ATTENDING PHYSICIAN:Salinas Alba MD Provider Query QUERY TEXT: Condition General 360MD Query related questions should be directed to: [facility] Coding Query Helpline [Based on the below [...] AM at 1831 PATIENT NAME: MATHEW CASTILLO noteG.[id number] for patient zxuqSAVHPTHDWQIZFF1519-75-46V54:31:38 [facility] 2023-01-27 13:09:00 [id number] fqFWbug+aseyPppzw/D6TloyE+/8Y tER/dattVMl5tq++CzzE7h5KxSl9183-17-90M60:09:90447 3-0114 [place] [address] PATIENT NAME: MATHEW CASTILLO ADMIT DATE: 01/06/23ACCOUNT NO: [id number] ROOM NO: G.C146 AGE: 62 REPORT TYPE: 360 - QUERY RESPONSE DOCUMENT SEX: M ADMITTING PHYSICIAN:Salinas Alba MD ATTENDING PHYSICIAN:Salinas Alba MD Provider Query QUERY TEXT: Condition General 360MD Query related questions should be directed to: [facility] Coding Query Helpline [Based on your medical judgement and the clinical indicators listed below kindly specify the underlying cause of the patient's heamaturia(Hematuria due to bladder lift surgery, hematuria due to UTI, hematuria unspecified, or other more appropriate diagnosis)?.] The patient's Clinical Indicators include:62-year-old male with last medical history of, BPH, s/p bladder lift yesterdayby Dr. Jones transferred from [place] for urology evaluation secondary tohematuria after bladder [...] AM at 1309 PATIENT NAME: MATHEW CASTILLO noteG.[id number] for patient wpwxVYBUUGLEFQLYFG9656-64-82T46:10:17 [facility] 2023-01-27 13:09:00 [id number] IHIUujK3HcA4sY3PFRfkOdy9mht7o SZBwP2dwglWPrO5KZc/5duHSPmo1846-07-89A75:09:63343 3-0115 [place] [address] PATIENT NAME: MATHEW CASTILLO ADMIT DATE: 01/06/23ACCOUNT NO: [id number] ROOM NO: G.C146 AGE: 62 REPORT TYPE: 360 - QUERY RESPONSE DOCUMENT SEX: M ADMITTING PHYSICIAN:Salinas Alba MD ATTENDING PHYSICIAN:Salinas Alba MD Provider Query QUERY TEXT: Condition General 360MD Query related questions should be directed to: [facility] Coding Query Helpline [Based on your clinical [...] 01/04 192Pulse 102 01/04 1926Resp 16 01/04 192Leukocytosis, UTI (urinary tract infection)WBC (4.5 - 11.0 x10 3/uL) 16.7 H : Ed physician record 01/04/2023His urine culture has shown growth of Pseudomonas aeruginosa and 1out of 2 blood culture has shown growth of Enterococcus faecalis.TheEnterococcus faecalis growing in 1 blood culture, likely could be eithercontaminant or leasing representative of transient bacteremia: progress note 01/11/2023 Options provided:-- Respond - Create new note now-- Dismiss - Not applicable / Not valid-- Dismiss - Clinically unable to determine / Unknown-- Assign to another provider QUERY RESPONSE: sepsis was not confirmed, patient had localized infection Query created by: MADY PEREZ on 01/22/2023 3:09 AM at 1309 PATIENT NAME: MATHEW CASTILLO noteG.[id number] for patient wmunSJGIZTBDWCJGLG7011-35-11T54:10:27 [facility] 2023-01-22 17:40:00 [id number] uAC8ZpIH9FyuqyKTlW3KiD9VNTDqt lX1seeIaqvapjOfmuGMmJMcwimk4020-57-83X02:40:00 [facility] ([facility])Internal Medicine Prog. NoteREPORT#:[id number] REPORT STATUS: SignedREPORT INITIALIZATION DATE:01/22/23 TIME: 1740 PATIENT: MATHEW CASTILLO UNIT #: [id number]#: [id number] ROOM[facility]BED: [facility]-1DOB: [birth year] AGE: 62 SEX: M ATTEND: Salinas Alba I MDADM AUTHOR: Sofia Cheng NPREPT SERVICE DT/TIME: 01/22/23 1740* ALL edits or amendments must be made on the electronic/computer document * Objective GeneralVS/I O:Vital SignsDate Temp Pulse Resp B/P B/P Mean Pulse Ox TwZ144/17-01/22 36.6-37.0 78-88 14-20 109-137/64-82 80.9-100.0 95-98 Last [...] Sodium Chloride (SODIUM CHLORIDE 0.9%) 1,000 ML .U72K36T IV Haloperidol (HALDOL) 10 MG BID PO [...] (Auto) (14.0 - 32.0 %) 9.8 L [place] % (Auto) (4.8 - 9.0 %) 9.0 Eos % (Auto) (0.3 - 3.7 %) 5.7 H Baso % (Auto) (0.0 - 2.0 %) 0.4 Neut # (Auto) (2.0 - 7.6 x10 3/uL) 7.35 Lymph # (Auto) (1.0 - 3.8 x10 3/uL) 0.97 L [place] # (Auto) (0.1 - 0.8 x10 3/uL) [...] notes:discharged see discharge summery at 2132 RPT #:[id number] OF REPORTPRProgress mrih5758-31-14R93:40:00G.BSDX08101295-2650DPDgmbl able for patient zauqUVXVUJZMZASGXW0331-90-67C18:33:02 [facility] 2023-01-22 12:19:00 [id number] MJ/W4lipLnECLwtNaygWiHlmo5L// KXw8n0pIa+EiQOkhkOq+WtD00gy0695-40-42C38:19:00 [facility] ([facility])Nephrology Consultation NoteREPORT#:[id number] REPORT STATUS: SignedREPORT INITIALIZATION DATE:01/22/23 TIME: 1218 PATIENT: MATHEW CASTILLO UNIT #: [id number]#: [id number] [address] [birth year] AGE: 62 SEX: M ATTEND: [...] thepatient given empirc abx and transferred to [facility] yesterday for furtherevaluation and management. Initial VS [...] (Flomax 0.4 mg) PO 04/21 2058 0912 Cardiovascular Drugs Sig/Mark Start time Last Medication [...] Time Status Admin Sodium Chloride 1,000 ML .Y18X07C 01/21 2330 AC 01/22 (SODIUM CHLORIDE IV 04/21 232 1359 0.9%) Sodium Chloride 1,000 ML .Q10H [...] 1900 Intake Total Output Total 2100 Balance -2099 Output, Urine 2100 PATIENT WEIGHT: Weight (lb): [...] Sodium Chloride (SODIUM CHLORIDE 0.9%) 1,000 ML .U72J36W IV Haloperidol (HALDOL) 10 MG BID PO [...] (Auto) (14.0 - 32.0 %) 9.8 L [place] % (Auto) (4.8 - 9.0 %) 9.0 Eos % (Auto) (0.3 - 3.7 %) 5.7 H Baso % (Auto) (0.0 - 2.0 %) 0.4 Neut # (Auto) (2.0 - 7.6 x10 3/uL) 7.35 Lymph # (Auto) (1.0 - 3.8 x10 3/uL) 0.97 L [place] # (Auto) (0.1 - 0.8 x10 3/uL) [...] and . at 1923 at 1933 RPT #:[id number] OF REPORTEPDapouagbwhfe1480-89-97P09:19:00G.PDOC2 0072003-8951SMCmtygadtm for patient cpolCWWJQFQYXSGSEA4293-33-25O66:23:39 [facility] 2023-01-21 19:40:00 [id number] GFFA+AFHimxdUAKSHanlivZ9+XbyB E4uQWrwNqKXs71yAN9DZeldy9Eg3344-03-25W04:40:00 [facility])Urology Consult NoteREPORT#:[id number] REPORT STATUS: SignedREPORT INITIALIZATION DATE:01/21/23 TIME: 1939 PATIENT: MATHEW CASTILLO UNIT #: [id number]#: [id number] [address] [birth year] AGE: 62 SEX: M ATTEND: [...] at outside hospital and was transferred to [facility] with acute renal failure and urinary retention. Outside labs showed creatinine of 5.6, GFR 11. They were able to place a catheter at the outside hospital and his creatinine currently is 2.6 GFR 27. Patient feels overall well he has a [address] that is patent and draining [...] Pulse Ox 98 01/21 162 B/P 117/73 01/22 1628 B/P Mean 87.3 01/22 1628 Temp 98.2 01/22 1628 Pulse 82 01/21 162 Resp 16 01/21 162 O2 Delivery Room [...] (Auto) (14.0 - 32.0 %) 7.1 L [place] % (Auto) (4.8 - 9.0 %) 8.1 Eos % (Auto) (0.3 - 3.7 %) 0.4 Baso % (Auto) (0.0 - 2.0 %) 0.1 Neut # (Auto) (2.0 - 7.6 x10 3/uL) 9.37 H Lymph # (Auto) (1.0 - 3.8 x10 3/uL) 0.79 L [place] # (Auto) (0.1 - 0.8 x10 3/uL) [...] in outside hospital and was transferred to [place]. He has indwelling Black placed from the outside hospital that is patent and draining clear urine. Creatinine has down trended to 2.6 from 5.6. -Continue indwelling Black do not remove-Trend creatinine-Discussed patient to follow-up with our clinic 01/30/2023 for nurse visit catheter removal and CIC teaching for which he was amenable to trying Crystal Alberts MD -covering for Dr. Jones [facility] at 1949 RPT #:[id number] OF REPORTQVIawdipaxdizg8844-56-56V24:40:00G.PDOC2 2792424-6747CSCnvgirrcp for patient tpbcDTXDXHTQVVNWYU6307-44-38W59:48:32 [facility] 2023-01-21 10:48:00 [id number] vzE8uc+XKS0f4LIeex3r9k6HRE620 RluFNfKtjI6G3yApM+6QrPsTn9u0583-34-58T68:48:00 [facility] ([facility])History Physical - AdultREPORT#:[id number] REPORT STATUS: SignedREPORT INITIALIZATION DATE:01/21/23 TIME: 1048 PATIENT: MATHEW CASTILLO SINCERE UNIT #: [id number]#: [id number] ROOM/BED: 5507-1DOB: [birth year] AGE: 62 SEX: M ATTEND: Salinas Alba I [facility] AUTHOR: Sofia Cheng NPREPT SERVICE DT/TIME: 01/21/23 1048* ALL edits or amendments must be made on the electronic/computer document * History of Present Illness HPIChief complaint:Acute kidney injuryUrinary retentionHPI: 62-year-old male with last medical history of, BPH-s/p UroLift 01/03/2023, schizophrenia was transferred from [facility] ER with acute kidney injury and urinary [...] range of motion, normal sensory, normal motor functionNeuro/LITIGATION EXAMINER: alert, oriented X 3Skin: dry, intact, no [...] (Auto) (14.0 - 32.0 %) 7.1 L [place] % (Auto) (4.8 - 9.0 %) 8.1 Eos % (Auto) (0.3 - 3.7 %) 0.4 Baso % (Auto) (0.0 - 2.0 %) 0.1 Neut # (Auto) (2.0 - 7.6 x10 3/uL) 9.37 H Lymph # (Auto) (1.0 - 3.8 x10 3/uL) 0.79 L [place] # (Auto) (0.1 - 0.8 x10 3/uL) [...] range of motion, normal sensory, normal motor functionNeuro/LITIGATION EXAMINER: alert, oriented X 3Skin: dry, intact, no gross abnormalitiesPsychiatry: Mild anxiety Diagnosis, Assessment Plan Free Text DxA P NotesFree Text DxA P Notes:Assessment:62-year-old male with last medical history of, BPH-s/p UroLift 01/03/2023, schizophrenia was transferred from [facility] ER with acute kidney injury and urinary [...] clinical course at 0300 at 1108 RPT #:[id number] OF REPORTHPHistory and physical pqtsptbzcdv8405-84-24X64:48:00G.HEED59503169-3395 AVAvailable for patient kvveONHFFUVRIXXFJX6511-27-90Q02:00:45 [facility] 2023-01-21 05:27:00 [id number]/Lisa kHYQeB3iVG+/T1vdfNROBG/wjkHzc nlbF22VeKoeLW79NFv4re8OYn5G2062-21-46C33:27:00 [facility] PROVID[facility] REPORTREPORT#:[id number] REPORT STATUS: SignedDATE:01/21/23 TIME: 526 PATIENT: MATHEW CASTILLO UNIT #: [id number]#: [id number] [facility]GE: SEX: M PCP PHYS: Lakhwinder Guillermo MDSERVICE AUTHOR: Elizabeth Davenport APRNNP * ALL edits or amendments must be made on the electronic/computer document * Elizabeth Davenport 01/21/23 0527:HPI-General Illness Free Text HPI NotesFree Text HPI Xdbdr98-zqpk-cvj male with PMH as listed below presents to the ER as a transfer from [facility] for diagnoses of ARF, urinary retention. Patient presented to the ER for evaluation of abdominal pain and urine retention that started 1 week ago after having his black catheter removed. A 14fr coude catheter was placed. Diagnostic w/u noted WBC of 14, creatinine 5.6, GFR 11, IQE945. 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 He denies any additional symptoms such as recentfever, chest pain, shortness of breath, N/V/D/C, testicular pain or any other symptoms. GeneralInitial Greet Date/Time 01/21/23 0514PCPhackney, uroAMIN, PCP, [facility]eraid PresentationChief Complaint __ (urine retention)Hx [...] No palpable masses or pulsatile masses. Negative Como Sign. [facility]: Indwelling Black, straw-colored, non-cloudy urine, [...] (Auto) (14.0 - 32.0 %) 7.1 L [place] % (Auto) (4.8 - 9.0 %) 8.1 Eos % (Auto) (0.3 - 3.7 %) 0.4 Baso % (Auto) (0.0 - 2.0 %) 0.1 Neut # (Auto) (2.0 - 7.6 x10 3/uL) 9.37 H Lymph # (Auto) (1.0 - 3.8 x10 3/uL) 0.79 L [place] # (Auto) (0.1 - 0.8 x10 3/uL) [...] Pulse 94 01/22 516 Resp 16 01/21 05 B/P 157/69 01/21 523 B/P Mean 98 01/21 523 Last Documented: Result Date Time Pulse Ox 97 01/21 0615 B/P 116/66 01/21 615 B/P Mean 84 01/21 615 Pulse 90 01/21 615 Resp 15 01/21 615 O2 Delivery Room air 01/21 05 Temp 36.8 01/22 516 All vital signs available at the time of this entry have been reviewed. Condition Guarded Clinical ImpressionClinical ImpressionPrimary Impression: CHANDRA (acute kidney injury)Secondary Impressions: Obstructive uropathy [facility] Sal[facility] Al[facility] MD [facility] Physician Hospitalist Request Time 0623 Request Date [...] the patient along with involvement of the PA/TRAY LINE SUPERVISOR. I agree with the PA/dry mill operator findings and plan. I have performed all aspects of MDM as documented including: evaluation of the patient/patient's condition(s), review and analysis of available data, and determinationof risk of patient management decisions. at 2244 at 1025RPT #:[id number] OF REPORTEDEmergency department wvbbun7889-57-54X62:27:00G.VPBO22926059-5718VFDvj ilable for patient rohsVKYMRPOCYOVHUN0090-69-28Z00:46:19 [facility] 2023-01-15 09:31:00 [id number] HqQqybZfifSog91WUaMZF/w5s4mUQ 70jkhcjSVK4X5Z7GqDH4U245GIC4775-94-19Q29:31:27981 1-[address] [address] PATIENT NAME: MATHEW CASTILLO ADMIT DATE: 01/06/23ACCOUNT NO: [id number] ROOM NO: [id number] AGE: 62 REPORT TYPE: 360 - QUERY RESPONSE DOCUMENT SEX: M ADMITTING PHYSICIAN:Salinas Alba MD ATTENDING PHYSICIAN:Salinas Alba MD Provider Query QUERY TEXT: Clarification Rule In Rule Out 360MD Query related questions should be directed to: [facility] Coding Query Help-line Based on your clinical [...] AM at 0931 PATIENT NAME: MATHEW CASTILLO noteG.[id number] for patient szkxOSPVLDCAMAMSDR8815-75-08F90:31:59 [facility] 2023-01-11 17:08:00 [id number] 9WrdRTo+AG3dybYBHfZage5ytpiuo 0M2ai9rMYgDxVQoHQHxWc2wFj4M5606-17-62G93:08:15840 7-[address] [place] [address] PATIENT NAME: MATHEW CASTILLO ADMIT DATE: 01/06/23ACCOUNT NO: [id number] ROOM NO: [facility] AGE: 62 [...] he was admitted through Emergency Room to [facility] facility [facility], and from there, he was transferred to [facility]. The patient PATIENT NAME: MATHEW CASTILLO was evaluated by Urology Service. He was placed on broad-spectrum IVantibiotics. His urine culture has shown growth of Pseudomonas aeruginosa and 1out of 2 blood culture has shown growth of Enterococcus faecalis. TheEnterococcus faecalis growing in 1 blood culture, likely could be eithercontaminant or leasing representative of transient bacteremia. Clinically is doingfairly well. His urine culture has shown growth of Pseudomonas aeruginosa. Fornow, we will continue him on the present treatment, and once he is ready to bedischarged home, we will switch him to oral ciprofloxacin. Discussed with thepatient's nursing staff and with MARLENA Cheng. Dictated By: Skip Jaffe MD Date Dictated: 01/11/2023 17:08:17Date Transcribed: 01/11/2023 18:52:55HA/Nicole #: [id number] ID: [id number] Authenticated and Edited by Skip Jaffe MD On 01/22/23 5:19:12 AM at 0520 PATIENT NAME: MATHEW CASTILLO ipkf2749-83-51D62:52:00G.RHQ90685202-4747DWGakjle ble for patient arfdDMAGJOZUXSGRHD4723-07-51D96:21:34 [facility] 2023-01-10 21:43:00 [id number]+AWu fqS7vWd2etq4ZF3IDb+PPQmmBxkgp gJdsTLQ9NhoyniX51fwUZlE1CyL8576-84-75O34:43:00 [facility] ([facility])Internal Medicine Prog. NoteREPORT#:[id number] REPORT STATUS: SignedREPORT INITIALIZATION DATE:01/10/23 TIME: 2142 PATIENT: MATHEW CASTILLO UNIT #: [id number]#: [id number] [address] AGE: 62 SEX: M ATTEND: Sal[place] Alba I [facility] AUTHOR: Sofia Cheng NPREPT SERVICE DT/TIME: 01/10/232142* ALL edits or amendments must be made on the electronic/computer document * SubjectiveChief complaint:HematuriaHPI:62-year-old male with last medical history of, BPH, s/p bladder lift yesterday by Dr. Jones transferred from [place] for urology evaluation secondary tohematuria after bladder irrigation failed. pt was seen and evaluated by Dr. 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 Last admitted to [facility] on 10/16/22 with urinary retention. Abnormal labs: [...] MLSodium Chloride (SODIUM CHLORIDE 0.9%) 1,000 ML .D09L26F IV (DC) Sodium Chloride (SODIUM CHLORIDE 0.9%) [...] range of motion, normal sensory, normal motor functionNeuro/LITIGATION EXAMINER: alert, oriented X 3Skin: dry, intact, no gross abnormalitiesPsychiatry: no hallucinations, normal affect, normal judgment/insight, normal mood, not homicidal, not suicidal Free Text DxA P NotesFree text DxA P notes:Assessment:62-year-old male with last medical history of, BPH, s/p bladder lift yesterday by Dr. Jones transferred from [place] for urology evaluation secondary tohematuria after bladder irrigation failed. pt was seen and evaluated by Dr. 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 Last admitted to [facility] on 10/16/22 with urinary retention.Abnormal labs: WBC [...] electrolytesRepeat labsFurther recommendation based on patient's clinical fdntme3401/06/2023Vital signs within normal limitsBlood culture shows Enterococcus [...] urology outpatient at 0024 at 0814 RPT #:[id number] OF REPORTPRProgress hqqq4841-44-10U14:43:00G.FZPC03705853-2888RKDqpfr able for patient hhspWDOXIWOIIEADXG8353-07-10E41:25:19 [facility] 2023-01-10 20:39:00 [id number]/Z+Wz QbHL5prQ8XnNKLDitGIewmn8PCNIR zKCbkPYZP9dyb0vQ1SBDYi9o+xi0172-33-85E01:39:00 [facility] ([facility])Infectious Dis. Progress NoteREPORT#:[id number] REPORT STATUS: SignedREPORT INITIALIZATION DATE:01/10/23 TIME: 2038 PATIENT: MATHEW CASTILLO UNIT #: [id number]#: [id number] [address] [birth year] AGE: 62 SEX: M ATTEND: [...] home on oral ciprofloxacin. at 0244 RPT #:[id number] OF REPORTPRProgress dghi5836-60-76B89:39:00G.JXWT86586993-9140LMRserf able for patient uuymDDQBPBXCZPBZVP3562-49-13X14:44:38 [facility] 2023-01-10 08:39:00 [id number] EM+NNpSp0/ONB02Tp4Zfug/zJTMUe eDhGbYsHmLxzbogIOitJJ/V7k2o3963-76-29T56:39:86705 6-0055 [place] [address] PATIENT NAME: MATHEW CASTILLO ADMIT DATE: 01/06/23ACCOUNT NO: [id number] ROOM NO: [facility] AGE: 62 REPORT TYPE: PROGRESS NOTE SEX: [...] Date Dictated: 01/10/2023 08:39:27Date Transcribed: 01/10/2023 09:42:11HA/KYLE Iyccdlr ID: [id number] Authenticated and Edited by Skip Jaffe MD On 01/22/23 5:19:04 AM at 0520 PATIENT NAME: MATHEW CASTILLO amdq9209-21-92K54:42:00G.DLU23806854-0925OHXukics ble for patient vjjrGYXMBFMFIFOTJO3745-06-70P74:21:54 [facility] 2023-01-09 22:29:00 R15011145402WgyMGlIG pH4Ygv5gXAIlh088lDvL1QcspjBjp wkWL31aeHVfI2RKOCFO77isMr1s7207-16-92K09:29:00 [facility] ([facility])Internal Medicine Prog. NoteREPORT#:[id number] REPORT STATUS: SignedREPORT INITIALIZATION DATE:01/09/23 TIME: 2228 PATIENT: MATHEW CASTILLO UNIT #: [id number]#: [id number] [address] [birth year] AGE: 62 SEX: M ATTEND: Sal[place] Alba I MDABRADEN AUTHOR: Sofia Cheng NPREPT SERVICE DT/TIME: 01/09/232228* ALL edits or amendments must be made on the electronic/computer document * SubjectiveChief complaint:HematuriaHPI:62-year-old male with last medical history of, BPH, s/p bladder lift yesterday by Dr. Jones transferred from [place] for urology evaluation secondary tohematuria after bladder irrigation failed. pt was seen and evaluated by Dr. 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 Last admitted to [facility] on 10/16/22 with urinary retention. Abnormal labs: [...] MLSodium Chloride (SODIUM CHLORIDE 0.9%) 1,000 ML .X63I08B IV Sodium Chloride (SODIUM CHLORIDE 0.9%) 1,000 ML BOLUS IV ResultsFindings/Data:Laboratory Tests 01/09/23548:[Embedded Image Not Available]Laboratory Tests [...] % (Auto) (14.0 - 32.0 %) 20.8 [place] % (Auto) (4.8 - 9.0 %) 7.7 Eos % (Auto) (0.3 - 3.7 %) 8.1 H Baso % (Auto) (0.0 - 2.0 %) 0.7 Neut # (Auto) (2.0 - 7.6 x10 3/uL) 4.51 Lymph # (Auto) (1.0 - 3.8 x10 3/uL) 1.51 [place] # (Auto) (0.1 - 0.8 x10 3/uL) [...] range of motion, normal sensory, normal motor functionNeuro/LITIGATION EXAMINER: alert, oriented X 3Skin: dry, intact, no gross abnormalitiesPsychiatry: no hallucinations, normal affect, normal judgment/insight, normal mood, not homicidal, not suicidal Free Text DxA P NotesFree text DxA P notes:Assessment:62-year-old male with last medical history of, BPH, s/p bladder lift yesterday by Dr. Jones transferred from [place] for urology evaluation secondary tohematuria after bladder irrigation failed. pt was seen and evaluated by Dr. 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 Last admitted to [facility] on 10/16/22 with urinary retention.Abnormal labs: WBC [...] electrolytesRepeat labsFurther recommendation based on patient's clinical dzwrtm6801/06/2023Vital signs within normal limitsBlood culture shows Enterococcus [...] as neededContinue medications and present care at 7540 at 0274 RPT #:[id number] OF REPORTPRProgress oqed7649-18-66E61:29:00G.RXEI50162335-5728DJStsgw able for patient hoxtWNIEBMDVFJOUMS8160-15-38Z18:59:46 [facility] 2023-01-09 19:20:00 W10344042132ivWYgLrN +gfl1LULjdJyStWkXjhvvrC6DO1EQ 7QdsKRj6BOnYldA7BMHMgSyJwBd5719-75-43J56:20:00 [facility] ([facility])Infectious Dis. Progress NoteREPORT#:[id number] REPORT STATUS: SignedREPORT INITIALIZATION DATE:01/09/23 TIME: 1919 PATIENT: MATHEW CASTILLO UNIT #: [id number]#: [id number] [address] [birth year] AGE: 62 SEX: M ATTEND: Salinas Alba MDA AUTHOR: Skip Jaffe MDREPT SERVICE DT/TIME: [...] him home on oral ciprofloxacin. at 0432 [facility] #:[id number] OF REPORTPRProgress twrd1154-58-56N57:20:00G.TCIG90466748-5877RSCvdhy able for patient xlrtKRGANKLHGVMYUK3067-60-44I24:33:11 [facility] 2023-01-09 18:36:00 [id number] EhYiPb7Q8tFLP8KgLnbHV8h3YbJra 6sSKMSl2q6KI3/m2akQcbee80zN7745-99-83Y24:36:35865 5-0330 [place] [address] PATIENT NAME: MATHEW CASTILLO ADMIT DATE: 01/06/23ACCOUNT NO: [id number] ROOM NO: G.C146 AGE: 62 REPORT TYPE: PROGRESS NOTE SEX: [...] was PATIENT NAME: MATHEW CASTILLO admitted to [place], and from there, he was transferred to [facility] urology followup. The patient was on admission, [...] MD Date Dictated: 01/09/2023 18:36:08Date Transcribed: 01/09/2023 20:19:12/[facility] Mkqxlqg ID: [id number] Authenticated and Edited by Skip Jaffe MD On 01/22/23 5:18:55 AM at 0520 PATIENT NAME: MATHEW CASTILLO dzxe8920-91-71P31:19:00G.NCF65140328-0552AIYxdisl ble for patient xfmbJSVUOLCBYBBHNG2101-76-85L05:21:54 [facility] 2023-01-09 11:30:00 [id number] QKqh3GvKE3g1tJz5+kn4D2anbUG9E ZdJSXqa29VFRqCLI548Ptqa8Fia6860-48-36R56:30:00 [facility] ([facility])Urology Progress NoteREPORT#:[id number] REPORT STATUS: SignedREPORT INITIALIZATION DATE:01/09/23 TIME: 1129 PATIENT: MATHEW CASTILLO UNIT #: [id number]#: [id number] [address] AGE: 62 SEX: M ATTEND: Salinas [...] as planned in clinic at 1131 RPT #:[id number] OF REPORTPRProgress kwnh8766-21-69S37:30:00G.YDCB68690126-4165ZYXikjp able for patient rxslEXHVENFADUPGDR3701-10-18C00:32:06 [facility] 2023-01-08 21:19:00 [id number] yom/ZlmVBFipusHma/eh5iQlrwG5i toiePDfTxipNBumAdm6sgYklowz3691-54-00Z02:19:00 [facility])Internal Medicine Prog. NoteREPORT#:[id number] REPORT STATUS: SignedREPORT INITIALIZATION DATE:01/08/23 TIME: 2118 PATIENT: MATHEW CASTILLO UNIT #: [id number]#: [id number] [address] [birth year] AGE: 62 SEX: M ATTEND: Sal[place] Alba I [facility] AUTHOR: Sofia Cheng NPREPT SERVICE DT/TIME: 01/08/232118* ALL edits or amendments must be made on the electronic/computer document * SubjectiveChief complaint:HematuriaHPI:62-year-old male with last medical history of, BPH, s/p bladder lift yesterday by Dr. Jones transferred from [place] for urology evaluation secondary tohematuria after bladder irrigation failed. pt was seen and evaluated by Dr. 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 Last admitted to [facility] on 10/16/22 with urinary retention. Abnormal labs: [...] MLSodium Chloride (SODIUM CHLORIDE 0.9%) 1,000 ML .F91N76H IV Sodium Chloride (SODIUM CHLORIDE 0.9%) 1,000 ML BOLUS IV ResultsFindings/Data:Laboratory Tests 01/08/235:[Embedded Image Not Available]Laboratory Tests 01/08 325 Chemistry [...] % (Auto) (14.0 - 32.0 %) 22.3 [place] % (Auto) (4.8 - 9.0 %) 6.9 Eos % (Auto) (0.3 - 3.7 %) 9.9 H Baso % (Auto) (0.0 - 2.0 %) 0.9 Neut # (Auto) (2.0 - 7.6 x10 3/uL) 3.89 Lymph # (Auto) (1.0 - 3.8 x10 3/uL) 1.46 [place] # (Auto) (0.1 - 0.8 x10 3/uL) [...] range of motion, normal sensory, normal motor functionNeuro/LITIGATION EXAMINER: alert, oriented X 3Skin: dry, intact, no gross abnormalitiesPsychiatry: no hallucinations, normal affect, normal judgment/insight, normal mood, not homicidal, not suicidal Free Text DxA P NotesFree text DxA P notes:Assessment:62-year-old male with last medical history of, BPH, s/p bladder lift yesterday by Dr. Jones transferred from [place] for urology evaluation secondary tohematuria after bladder irrigation failed. pt was seen and evaluated by Dr. Christianson, has three way lback with CBI with straw color output. Last admitted to [facility] on 10/16/22 with urinary retention.Abnormal labs: WBC [...] electrolytesRepeat labsFurther recommendation based on patient's clinical cfbwvz9101/06/2023Vital signs within normal limitsBlood culture shows Enterococcus [...] present care at 2359 at 1240 RPT #:[id number] OF REPORTPRProgress rlwt1481-51-61K07:19:00G.AVFA45126120-2787BJNfpkc able for patient atomHCRUPFPTRFMFLC2654-23-99B84:59:46 [facility] 2023-01-08 18:59:00 I07851738413JdTQclWq 1Z+tl6NCPPr0K+QBu/q392lbyhZRN esYyUhOtihx0wboY5QjV/C4GWE36218-11-97A66:59:00 [facility] ([facility])Infectious Dis. Progress NoteREPORT#:[id number] REPORT STATUS: SignedREPORT INITIALIZATION DATE:01/08/23 TIME: 1858 PATIENT: MATHEW CASTILLO UNIT #: [id number]#: [id number] [address] [birth year] AGE: 62 SEX: M ATTEND: [...] home on oral ciprofloxacin. at 0321 RPT #:[id number] OF REPORTPRProgress wlci8652-53-90X22:59:00G.EIGD61872216-7969PQFqbcq able for patient picyWQPFILCMYMAIJX2274-41-80G06:21:51 [facility] 2023-01-08 18:22:00 [id number] ROzWC17muvg6WPhRK37CkbynkocOl /kddhGtQ0fu8oedXfQYhS38givn0769-18-87N38:22:52138 4-0317 [place] [address] PATIENT NAME: MATHEW CASTILLO ADMIT DATE: 01/06/23ACCOUNT NO: [id number] ROOM NO: [facility] AGE: 62 [...] 205,000. Serum sodium is 138, potassium 4.0, dpphgern706, bicarbonate 26, glucose 91, BUN 14, creatinine 0.8, estimated GFR is 99.calcium is 7.8, blood culture 1 out of 2 has shown growth of Enterococcusfaecalis, which is pansensitive. Another blood culture so far is negative at 72hours of incubation. Urine culture has shown growth of Pseudomonas ncladtzcns65,000 to 50,000 colony forming units. Currently, the [...] Dictated: 01/08/2023 18:22:31Date Transcribed: 01/08/2023 19:55:35HA/Trina #: [id number] ID: [id number] Authenticated and Edited by Skip Jaffe MD On 01/22/23 5:18:46 AM at 0520 PATIENT NAME: MATHEW CASTILLO oekw9242-69-28Z80:55:00G.HYS49702953-5208WISqwjxb ble for patient mcyyWOUEDMVIDFGXYZ7717-87-49H02:21:54 [facility] 2023-01-08 17:58:00 T599628763513QhpLABC v+Fdtk8zjVP+bn/186FD7CF2N+hQy CajIj3KbF3FDu9Ay+i8Q+EF7cJS8981-79-09Z07:58:00 [facility] ([facility])Urology Progress NoteREPORT#:[id number] REPORT STATUS: SignedREPORT INITIALIZATION DATE:01/08/23 TIME: 1757 PATIENT: MATHEW CASTILLO UNIT #: [id number]#: [id number] [address] AGE: 62 SEX: M ATTEND: [...] Pulse Ox 98 01/09 1656 B/P 134/76 01/08 165 B/P Mean 95.2 [...] Genitourinary: catheter in situ ResultsFindings/Data:Laboratory Tests: 01/08 032 Chemistry Sodium (134 - 147 mEq/L) 139 [...] % (Auto) (14.0 - 32.0 %) 22.3 [place] % (Auto) (4.8 - 9.0 %) 6.9 Eos % (Auto) (0.3 - 3.7 %) 9.9 H Baso % (Auto) (0.0 - 2.0 %) 0.9 Neut # (Auto) (2.0 - 7.6 x10 3/uL) 3.89 Lymph # (Auto) (1.0 - 3.8 x10 3/uL) 1.46 [place] # (Auto) (0.1 - 0.8 x10 3/uL) [...] improved - discharge with black tomorrow at 9515 RPT #:[id number] OF REPORTPRProgress ektt3598-58-65I45:58:00G.ZQCS58022783-6517XRTakuj able for patient dhfyUJJBLNHFUVSYZY0864-09-82Y65:00:52 [facility] 2023-01-08 02:42:00 Z9114624874774Ex/h/v MAMrZR1U8TawmthlrS3+Dmu+ff7uq RQjpdtUiMBa+7XAGg1N/N0gautg1046-09-18R41:42:00 [facility] ([facility])Infectious Dis. Progress NoteREPORT#:[id number] REPORT STATUS: SignedREPORT INITIALIZATION DATE:01/08/23 TIME: 024 PATIENT: MATHEW CASTILLO UNIT #: [id number]#: [id number] [address] AGE: 62 SEX: M ATTEND: [...] patient on IV Zosyn. at 0353 RPT #:[id number] OF REPORTPRProgress yrsk6464-13-84A82:42:00G.DJJO98553635-5055XSPfuyx able for patient mmuoEBVBOHPDAJXXTG0083-89-26I40:54:17 [facility] 2023-01-07 21:05:00 Z96423249234OM9ZKPWY Q+XiDI6O7S0NzCBd9cpGMz3JfTTkZ lJTjRPanL6mnRnZvGsX9nlo3+6C3031-73-50Y77:05:00 [facility] ([facility])Internal Medicine Prog. NoteREPORT#:[id number] REPORT STATUS: SignedREPORT INITIALIZATION DATE:01/07/23 TIME: 2104 PATIENT: MATHEW CASTILLO UNIT #: [id number]#: [id number] [address] AGE: 62 SEX: M ATTEND: [place] Alba I [facility] AUTHOR: Sofia Cheng NPREPT SERVICE DT/TIME: 01/07/232104* ALL edits or amendments must be made on the electronic/computer document * SubjectiveChief complaint:HematuriaHPI:62-year-old male with last medical history of, BPH, s/p bladder lift yesterday by Dr. Jones transferred from [place] for urology evaluation secondary tohematuria after bladder irrigation failed. pt was seen and evaluated by Dr. 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 Last admitted to [facility] on 10/16/22 with urinary retention. Abnormal labs: [...] MLSodium Chloride (SODIUM CHLORIDE 0.9%) 1,000 ML .U47A49A IV Sodium Chloride (SODIUM CHLORIDE 0.9%) 1,000 [...] % (Auto) (14.0 - 32.0 %) 21.2 [place] % (Auto) (4.8 - 9.0 %) 7.2 Eos % (Auto) (0.3 - 3.7 %) 10.4 H Baso % (Auto) (0.0 - 2.0 %) 0.8 Neut # (Auto) (2.0 - 7.6 x10 3/uL) 3.56 Lymph # (Auto) (1.0 - 3.8 x10 3/uL) 1.26 [place] # (Auto) (0.1 - 0.8 x10 3/uL) [...] range of motion, normal sensory, normal motor functionNeuro/LITIGATION EXAMINER: alert, oriented X 3Skin: dry, intact, no gross abnormalitiesPsychiatry: no hallucinations, normal affect, normal judgment/insight, normal mood, not homicidal, not suicidal Free Text DxA P NotesFree text DxA P notes:Assessment:62-year-old male with last medical history of, BPH, s/p bladder lift yesterday by Dr. Jones transferred from [place] for urology evaluation secondary tohematuria after bladder irrigation failed. pt was seen and evaluated by Dr. 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 Last admitted to [facility] on 10/16/22 with urinary retention.Abnormal labs: WBC [...] electrolytesRepeat labsFurther recommendation based on patient's clinical wgtjqq2801/06/2023Vital signs within normal limitsBlood culture shows Enterococcus [...] present care at 2222 at 0742 RPT #:[id number] OF REPORTPRProgress flcs9711-95-73T58:05:00G.ZJNQ05947253-9993PDCsaat able for patient prlcVJNXGUMXSHVBIZ9131-46-71Q56:22:45 [facility] 2023-01-07 16:17:00 Y12414691228+LllZ66i NmY53vVviV5lKdjMuX9Ot8/Rh0T6T xTSrJh++o59PAv3n0A6599tuukL8465-86-37B85:17:00 [facility])Urology Progress NoteREPORT#:[id number] REPORT STATUS: SignedREPORT INITIALIZATION DATE:01/07/23 TIME: 1616 PATIENT: MATHEW CASTILLO UNIT #: [id number]#: [id number] [address] AGE: 62 SEX: M ATTEND: Sal[place] Alba I [facility] AUTHOR: Dave Jones MDREPT SERVICE DT/TIME: [...] - discharge with black tomorrow at 1617 [facility] #:[id number] OF REPORTPRProgress ycmd5375-59-05Q18:17:00G.BLNQ45777340-7788JBQavdn able for patient kjbcNYUJWBUZPIGYYM0562-85-16Q32:18:01 [facility] 2023-01-07 05:20:00 X509815347265gaoWOu0 HUuqz4UhX4pg8Q3GUXGbnV0X3aHUW PlGbCIyWQAGdrTCzTD8NECnXyMv0859-15-71R66:20:49705 3-0041 [place] [address] PATIENT NAME: MATHEW CASTILLO ADMIT DATE: 01/06/23ACCOUNT NO: [id number] ROOM NO: [facility] AGE: 62 [...] 01/07/2023 05:20:31Date Transcribed: 01/07/2023 05:56:47 DORADO/Nicole #: [id number] ID: [id number] Authenticated and Edited by Skip Jaffe MD On 01/22/23 5:18:20 AM at 0520 PATIENT NAME: MATHEW CASTILLO tnjx0241-02-75V91:56:00G.LGC11019246-4476SQErgltd ble for patient okcwCCMTGMTRNFBAXK0847-34-96B71:21:33 [facility] 2023-01-06 21:39:00 S80268755041r/Dl9a5D mTLn4U8p81mMGATwrDj1mF0Z+HZ27 kw8z2A04hWW1IB1LFW4Rtar4Ywg6265-52-14B20:39:00 [facility])Internal Medicine Prog. NoteREPORT#:[id number] REPORT STATUS: SignedREPORT INITIALIZATION DATE:01/06/23 TIME: 2138 PATIENT: MATHEW CASTILLO UNIT #: [id number]#: [id number] [address]: [address] AGE: 62 SEX: M ATTEND: [place] Alba AUTHOR: Sofia Cheng NPREPT SERVICE DT/TIME: 01/06/232138* ALL edits or amendments must be made on the electronic/computer document * SubjectiveChief complaint:HematuriaHPI:62-year-old male with last medical history of, BPH, s/p bladder lift yesterday by Dr. Jones transferred from [place] for urology evaluation secondary tohematuria after bladder irrigation failed. pt was seen and evaluated by Dr. 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 Last admitted to [facility] on 10/16/22 with urinary retention. Abnormal labs: [...] MLSodium Chloride (SODIUM CHLORIDE 0.9%) 1,000 ML .T11S17D IV Sodium Chloride (SODIUM CHLORIDE 0.9%) 1,000 ML BOLUS IV ResultsFindings/Data:Laboratory Tests 01/06/23516:[Embedded Image Not Available]Laboratory Tests 01/06 517 Chemistry [...] (Auto) (14.0 - 32.0 %) 11.8 L [place] % (Auto) (4.8 - 9.0 %) 7.5 Eos % (Auto) (0.3 - 3.7 %) 3.2 Baso % (Auto) (0.0 - 2.0 %) 0.4 Neut # (Auto) (2.0 - 7.6 x10 3/uL) 7.43 Lymph # (Auto) (1.0 - 3.8 x10 3/uL) 1.14 [place] # (Auto) (0.1 - 0.8 x10 3/uL) [...] range of motion, normal sensory, normal motor functionNeuro/LITIGATION EXAMINER: alert, oriented X 3Skin: dry, intact, no gross abnormalitiesPsychiatry: no hallucinations, normal affect, normal judgment/insight, normal mood, not homicidal, not suicidal Free Text DxA P NotesFree text DxA P notes:Assessment:62-year-old male with last medical history of, BPH, s/p bladder lift yesterday by Dr. Jones transferred from [place] for urology evaluation secondary tohematuria after bladder irrigation failed. pt was seen and evaluated by Dr. 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 Last admitted to [facility] on 10/16/22 with urinary retention.Abnormal labs: WBC [...] electrolytesRepeat labsFurther recommendation based on patient's clinical ucmaqo4201/06/2023Vital signs within normal limitsBlood culture shows Enterococcus speciesUrine culture grows gram-negative teodoro-identification and sensitivity pendingHematuria is improved.Wean CBI as tolerated per uroContinue IV antibiotics Zosyn per ID, ceftriaxone is discontinuedStarted on Cogentin, still on tamsulosin.Monitor for further bleedingPain medications as neededFollow-up cultures, labs, continue medications and supportive care at 0015 at 0740 RPT #:[id number] OF REPORTPRProgress ultr6552-27-96H71:39:00G.TTGD45057509-5798WTVgdgl able for patient hvzqZOPBLWVLSRVQJP7565-10-42Q46:16:29 [facility] 2023-01-06 19:39:00 L84184233122YmpT3WiT aJFdW3t5MruqFO6258sf24HjN48Dz PQ/I+mFKiouG9rG5KDph+8M1Wh43055-18-22F82:39:00 [facility] ([facility])Urology Progress NoteREPORT#:[id number] REPORT STATUS: SignedREPORT INITIALIZATION DATE:01/06/23 TIME: 1938 PATIENT: MATHEW CASTILLO UNIT #: [id number]#: [id number] [address] [birth year] AGE: 62 SEX: M ATTEND: [place] I MDADM AUTHOR: Dave Jones MDREPT SERVICE DT/TIME: 01/06/231938* [...] Pulse Ox 97 01/07 1540 B/P 100/66 01/06 154 B/P Mean 77.5 01/07 1540 O2 Delivery [...] (Auto) (14.0 - 32.0 %) 11.8 L [place] % (Auto) (4.8 - 9.0 %) 7.5 Eos % (Auto) (0.3 - 3.7 %) 3.2 Baso % (Auto) (0.0 - 2.0 %) 0.4 Neut # (Auto) (2.0 - 7.6 x10 3/uL) 7.43 Lymph # (Auto) (1.0 - 3.8 x10 3/uL) 1.14 [place] # (Auto) (0.1 - 0.8 x10 3/uL) [...] wean cbi as tolerated at 1941 RPT #:[id number] OF REPORTPRProgress jhbk4526-95-47E45:39:00G.COBM96105632-0123LAGmgnb able for patient dcctXUEUSPYYKDMCPR8381-65-01H65:41:57 [facility] 2023-01-06 19:19:00 [id number] lbsnSH2TA8qAFcXcxFigjPcQfEGrL UCvOVw8Go2GBziCPtyifr+nQNKy5320-00-85V35:19:00 [facility] ([facility])Infectious Dis. Progress NoteREPORT#:[id number] REPORT STATUS: SignedREPORT INITIALIZATION DATE:01/06/23 TIME: 1918 PATIENT: ANNAMATHEW SINCERE UNIT #: [id number]#: [id number] [facility] [place] AGE: 62 SEX: M ATTEND: [place] [...] possibility. [place] [address] colony-forming units of the Gram-negative rods. Identification and susceptibility is pending. Keep the patient on IV Zosyn. at 0411 RPT #:[id number] OF REPORTPRProgress xuhm6318-70-84K69:19:00G.PUHF44358810-9556NLJehyc able for patient vbwvNKPWHEOLVFYYAE7909-37-56R02:11:25 [facility] 2023-01-06 17:40:00 [id number] 73RomlgwJEJZTb2+xp9lwayPDLPj9 x+dOsyWT2czeubJOCZaQRjzWLnG7226-89-63Z91:40:05831 2-[address] [address] PATIENT NAME: MATHEW CASTILLO ADMIT DATE: 01/06/23ACCOUNT NO: [id number] ROOM NO: [place] [facility] AGE: 62 REPORT TYPE: CONSULTATION REPORT SEX: [...] October of 2022. The patient lives in [place] and he had an outpatient prostate procedure done by Dr. Dave Jones with [facility] on Friday01/03/2023 and was discharged home on the same day. The patient went back to [place]. However, subsequently, he started to notice ladan hematuria on Friday and had no other constitutional symptoms including fever or chills. The patient because of worsening hematuria decided to go to the hospital. He went to hospital in [place] and he was told to follow up with the urologist and he was transferred to the [facility]. The patient at present is hemodynamically [...] is single. He lives with his daughterjailene [place]. The patient has been a longtime smoker and continues to smoke. No history of IV drug use, alcohol use, or substance abuse. 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 On admission, [place] [address]. The patient had 2 blood cultures done. Urine culture is incubating. ASSESSMENT: The patient with multiple comorbidities including history of benignprostatic hypertrophy with previous episode of urinary retention requiring indwelling Black catheter placement has undergone an U[facility] procedure on 01/03/2023, and subsequently was discharged on the same day; however, yesterday he started to have hematuria and was seen at a hospital in [facility] and is transferred to [facility] for further Urology evaluation. 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, and he is empirically started on [...] Dictated: 01/06/2023 17:40:46Date Transcribed: 01/06/2023 21:28:36ESTRADA/Concepcion #: [id number] ID: [id number] by Skip Jaffe MD On 01/22/2023 05:17:37 AM at 0517 PATIENT NAME: MATHEW CASTILLO :28:00G.ND [id number] for patient kkidOHQEEFOTTKWOFX7797-89-35Z24:18:03 [facility] 2023-01-05 23:00:00 [id number] vmNnJZpqjrPOc8Z9UUaUiafTBlWtO 1xpDZT0iDRUYXRjHZ+A7K/AYuw24110-06-34S25:00:00 [facility] ([facility])Infect Disease Consult NoteREPORT#:[id number] REPORT STATUS: SignedREPORT INITIALIZATION DATE:01/05/23 TIME: 2299 PATIENT: MATHEW CASTILLO UNIT #: [id number]#: [id number] ROOM/BED: U330-9WQY: 59 AGE: 62 SEX: M ATTEND: Salinas Alba AUTHOR: Skip Jaffe MDREPT SERVICE DT/TIME: 01/05/23 2300* ALL edits or amendments must be made on the electronic/computer document * History of Present IllnessHPI:Thank you for the consultation. Patient's current and old record reviewed. Orders initiated. See full dictated consultation report for further details. Patient is known to our service from his recent hospitalization at [facility] in October of 2022. ASSESSMENT AND [...] Allergies:No Known Allergies (10/16/22) at 0526 RPT #:[id number] OF REPORTVIGuhypmyqfkek9874-73-12E90:00:00G.PDOC2 [id number] for patient xnzpOVNAQKYARNCGCB2986-12-86I99:27:03 [facility] 2023-01-05 13:05:00 [id number] xBTdMgMabm7hDWXt52QR/RY4hI2YQ 3H5zQsuNb2J874SnvZYn2B8UXqG3746-76-05I65:05:00 [facility] ([facility])Urology Consult NoteREPORT#:[id number] REPORT STATUS: SignedREPORT INITIALIZATION DATE:01/05/23 TIME: 1305 PATIENT: MATHEW CASTILLO UNIT #: [id number]#: [id number] [facility] AGE: 62 SEX: M ATTEND: Salinas [...] (Auto) (14.0 - 32.0 %) 4.5 L [place] % (Auto) (4.8 - 9.0 %) 6.1 Eos % (Auto) (0.3 - 3.7 %) 0.3 Baso % (Auto) (0.0 - 2.0 %) 0.2 Neut # (Auto) (2.0 - 7.6 x10 3/uL) 15.99 H Lymph # (Auto) (1.0 - 3.8 x10 3/uL) 0.82 L [place] # (Auto) (0.1 - 0.8 x10 3/uL) [...] (Auto) (14.0 - 32.0 %) 5.4 L [place] % (Auto) (4.8 - 9.0 %) 5.3 Eos % (Auto) (0.3 - 3.7 %) 0.0 L Baso % (Auto) (0.0 - 2.0 %) 0.2 Neut # (Auto) (2.0 - 7.6 x10 3/uL) 14.77 H Lymph # (Auto) (1.0 - 3.8 x10 3/uL) 0.90 L [place] # (Auto) (0.1 - 0.8 x10 3/uL) [...] pH (5.0 - 7.0) 7.0 Ur Specific [place] (1.005 - 1.030) 1.005 Urine Protein (NEGATIVE) [...] Alberts MDTexas [facility] at 1312 RPT #:[id number] OF REPORTVRRczqzvjctwsp5411-78-43A75:05:00G.PDOC2 9799946-9181SBQdxiusxzw for patient xyiqSHADDVLKZTXLJN9526-74-18D17:12:53 [facility] 2023-01-05 11:34:00 [id number]/t4gGg 83MvCDWeLjtjy3wVfbgvPKeNRbWG9 vmnk+8gbkyjiqYpXlFnldQDd3Wy7902-91-36Q81:34:00 [facility] ([facility])History Physical - AdultREPORT#:[id number] REPORT STATUS: SignedREPORT INITIALIZATION DATE:01/05/23 TIME: 1133 PATIENT: MATHEW CASTILLO UNIT #: [id number]#: [id number] [address] AGE: 62 SEX: M ATTEND: Salinas Alba AUTHOR: Sofia Cheng NPREPT SERVICE DT/TIME: 01/05/23 1134* ALL edits or amendments must be made on the electronic/computer document * History of Present Illness HPIChief complaint:HematuriaHPI:62-year-old male with last medical history of, BPH, s/p bladder lift yesterday by Dr. Jones transferred from [place] for urology evaluation secondary tohematuria after bladder irrigation failed. pt was seen and evaluated by Dr. 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 Last admitted to [facility] on 10/16/22 with urinary retention. Abnormal labs: [...] range of motion, normal sensory, normal motor functionNeuro/LITIGATION EXAMINER: alert, oriented X 3Skin: dry, intact, no [...] (Auto) (14.0 - 32.0 %) 4.5 L [place] % (Auto) (4.8 - 9.0 %) 6.1 Eos % (Auto) (0.3 - 3.7 %) 0.3 Baso % (Auto) (0.0 - 2.0 %) 0.2 Neut # (Auto) (2.0 - 7.6 x10 3/uL) 15.99 H Lymph # (Auto) (1.0 - 3.8 x10 3/uL) 0.82 L [place] # (Auto) (0.1 - 0.8 x10 3/uL) [...] 0.1 x10 3/uL) 0.00 01/04 01/04 01/04 8358 2145 2000 Chemistry Sodium (134 - 147 mEq/L) [...] (Auto) (14.0 - 32.0 %) 5.4 L [place] % (Auto) (4.8 - 9.0 %) 5.3 Eos % (Auto) (0.3 - 3.7 %) 0.0 L Baso % (Auto) (0.0 - 2.0 %) 0.2 Neut # (Auto) (2.0 - 7.6 x10 3/uL) 14.77 H Lymph # (Auto) (1.0 - 3.8 x10 3/uL) 0.90 L [place] # (Auto) (0.1 - 0.8 x10 3/uL) [...] pH (5.0 - 7.0) 7.0 Ur Specific [place] (1.005 - 1.030) 1.005 Urine Protein (NEGATIVE) [...] SCAN - CT ABD PELVIS W/CONT 01/04 0940 Report Impression - Status: SIGNED Entered: 01/04/2023 6306 IMPRESSION: 1. Prostatomegaly. Decompressed bladder with a Black in place.2. No hydronephrosis. No enhancing renal masses.3. Cholelithiasis and mildly distended gallbladder.4. Moderate hiatal hernia.Impression By: Nick Magaña M.D. Diagnosis, Assessment Plan Free Text DxA P NotesFree Text DxA P Notes:Assessment:62-year-old male with last medical history of, BPH, s/p bladder lift yesterday by Dr. Jones transferred from [place] for urology evaluation secondary tohematuria after bladder irrigation failed. pt was seen and evaluated by Dr. 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 Last admitted to [facility] on 10/16/22 with urinary retention. Abnormal labs: [...] clinical course at 0055 at 0739 RPT #:[id number] OF REPORTHPHistory and physical wsicraqbiyj5132-60-99B72:34:00G.JCSN49466393-0866 AVAvailable for patient qzwtOOQEKAVEFTGFGN1450-12-71O08:55:31 [facility] 2023-01-05 01:59:00 P95633121148/lT9oBdE I27NOiLDqK6tB9gz+Q+24i7MP75ht A0xOTctkrT0GYS9hBOOyFSGeHgW6340-93-12P19:59:00 [facility] ([facility])Clinical NoteREPORT#:[id number] REPORT STATUS: SignedREPORT INITIALIZATION DATE:01/05/23 TIME: 015 PATIENT: MATHEW CASTILLO UNIT #: [id number]#: [id number] [address]IOE: [address] AGE: 62 SEX: M ATTEND: Salinas Alba I [facility] AUTHOR: Sofia Cheng NPREPT SERVICE DT/TIME: 01/05/23158* ALL edits or amendments must be made on the electronic/computer document * Clinical NoteNote:Clinical data reviewedOrders placed at 0222 RPT #:[id number] OF REPORTCLClinical juak5347-88-64R71:59:00G.LYML11046797-5950VNEjvwr able for patient gzxzQLUVKWCVSMKDAK0574-43-53Z42:22:53 [facility] 2023-01-04 20:02:00 C38965943598w+5KrlUg 9y4cgfPgY5OtXtxfosiEshZXLHkk3 fxKF5q2DM9t9E2oLya1ulOik8/n4620-29-95C11:02:00 [facility] ([facility]ER[facility]Y PROVIDER REPORTREPORT#:[id number] REPORT STATUS: SignedDATE:01/04/23 TIME: 2001 PATIENT: MATHEW CASTILLO UNIT #: [id number]#: [id number] [address]I045-3WKS: 62 SEX: M PCP PHYS: Lakhwinder Guillermo [...] SOB. 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 Tachycardic [...] DecisionHospitalize Hosp Physician Name Salinas Alba MD [facility] Physician Hospitalist Request Time 34 Request Date [...] MidLv Saw Pt AloneI have reviewed the PA/TRAY LINE SUPERVISOR's note and plan of care. I was available for consultation as needed at all times during the patient's visit in the emergency department. I agree with the clinical impression, plan and disposition. at 2148 at 0552RPT #:[id number] OF REPORTThe Hospitals of [facility] department tukmvz2373-75-15B71:02:00G.ANOJ77168093-7797IMXsj ilable for patient mqigCHQNUXAJAYTYDG4164-87-12M09:48:19 [facility] 2022-11-19 18:14:00 I906118325719s5dp/HZ a9/P9nX0QxIR1UiJNodKHlp4jY3Dz DGj+Xlk5X8M3osAyCyd6UbbvFSG8735-78-18S17:14:00 [facility] ([facility])Discharge SummaryREPORT#:[id number] REPORT STATUS: SignedDATE:11/19/22 TIME: 1813 PATIENT: MATHEW CASTILLO UNIT #: [id number]#: [id number] [address] [birth year] AGE: 62 SEX: M ATTEND: [...] last medical history of, BPH, transferred from [place] for urology evaluation and treatment secondary to [...] range of motion, normal sensory, normal motor functionNeuro/LITIGATION EXAMINER: alert, oriented X 3Skin: dry, intact, no [...] Care Discharge InstructionsAdditional Discharge Routines: PCP Follow-Up, Solutions Manager Follow-Up)( Diet: Regular Follow-up AppointmentsPCP follow up: PCP: Yumiko Geller MD PCP follow up timeframe: In 5 days Special instructions:CAN FU WITH OWN PCPAttending Physician: Attending Physician: Salinas Alba MD Attending physician follow up timeframe: In 1-2 weeks Special instructions:CALL TO SCHEDULE AN APPOINTMENTConsulting provider 1: Provider 1: Dave Jones MD Specialty: Urology Special instructions:FOR REMOVAL OF BLACK at [address] [facility] #:[id number] OF REPORTDSDischarge qqdcazl4582-66-09N74:14:00G.BCFC41742671-6814SXCl ailable for patient mnodWEWQSXVIXZQHCM1577-79-39U81:32:51 [facility] 2022-10-26 20:52:00 [id number] aoXbrOo+EnndJQNmPtDOQuMp+1/fm 15H2X2IikuvGP5Hpu9YNcADeQRZ7853-50-77T12:52:90811 2-[address] [place], [place] [address] PATIENT NAME: MATHEW CASTILLO ADMIT DATE: 10/16/22ACCOUNT NO: [id number] [place] [facility] AGE: 62 REPORT TYPE: PROGRESS NOTE SEX: M ADMITTING PHYSICIAN:Salinas Alba MD ATTENDING PHYSICIAN:Salinas Alba MD DATE: 10/25/2022 SUBJECTIVE: The patient examined, chart reviewed, events of last 24 hoursnoted. The patient clinically is doing fair, remains awake and comfortable. Nonew problems reported. Remains afebrile. No nausea, vomiting reported. Nodiarrhea reported. Continues to have indwelling Black catheter in place. CURRENT MEDICATIONS: Include [...] Emergency Room where he was transferred from [place] with acuteurinary retention. He had 3 liters [...] Dictated: 10/26/2022 20:52:41Date Transcribed: 10/26/2022 21:14:58HA/JORGE/Marine #: [id number] ID: [id number] Authenticated and Edited by Skip Jaffe MD On 11/02/22 2:24:00 AM at 0323 PATIENT NAME: MATHEW CASTILLO hvhk2005-46-79F63:14:00G.WIG72654302-9726YVFlybhl ble for patient qzyeVPOCSOXPGJEFQA3302-50-73Z58:24:01 [facility] 2022-10-26 19:14:00 V19580187589OLUVCBth obQieFgoFTGDYtpCwAsF5Oj7GNbfB 6D6FjkWxBMWBHszKZ8cOgRS6jG77695-09-66A16:14:00 [facility])Internal Medicine Prog. NoteREPORT#:[id number] REPORT STATUS: SignedDATE:10/26/22 TIME: 1913 PATIENT: MATHEW CASTILLO UNIT #: [id number]#: [id number] [address] [birth year] AGE: 62 SEX: M ATTEND: Salinas Alba I [facility] AUTHOR: Sofia Cheng TRAY LINE SUPERVISOR * ALL edits or amendments must be made on the electronic/computer document * SubjectiveChief complaint:Abdominal distention, hydronephrosisHPI:62-year-old male with last medical history of, BPH, transferred from [place] for urology evaluation and treatment secondary to [...] range of motion, normal sensory, normal motor functionNeuro/LITIGATION EXAMINER: alert, oriented X 3Skin: dry, intact, no gross abnormalitiesPsychiatry: no hallucinations, normal moodProblem List/A P: 1. Rupture of ureter Free Text DxA P NotesFree text DxA P notes:Assessment:62-year-old male with last medical history of, BPH, transferred from [place] for urology evaluation and treatment secondary to [...] neededRepeat labsFurther recommendation based on patient's clinical tesyef6710/17/2022Vital signs within normal limitsHypokalemia 3.2, hypomagnesemia 1.50Renal [...] controlFollow-up electrolytes and labs, continue medications and fymkizj5710/22/2022Vital signs within normal limits, POC glucose is [...] explained to patient's daughterContinue with current medicationsFall dxvvtsbsau72/20/2023Stable, POC glucose 154Patient with Black to gravity, [...] supportive care at 2225 at 0830 RPT #:[id number] OF REPORTPRProgress fliz6240-40-30V45:14:00G.AKOF65462344-3073QUQmyyi able for patient qxadABCUACNZRQTCSR0796-12-01C71:25:27 [facility] 2022-10-26 13:41:00 H600663466846kzvBuGM lMutiepsI9lo1DrMaV6nrn5xT7vrh TWj00EVJygGQEjn4rRD6cjf0A0j3683-61-38Q99:41:00 [facility]Ne[facility] Progress NoteREPORT#:[id number] REPORT STATUS: SignedDATE:10/26/22 TIME: 134 PATIENT: MATHEW CASTILLO UNIT #: [id number]#: [id number] [place] [facility] [place]DOB: [birth year] AGE: 62 SEX: M ATTEND: Salinas [...] urine in his bladder. CT abdomen from [place] showed that the patient has a very [...] urine in his bladder. CT abdomen from [place] showed that the patient has a very [...] above A/P at 1342 at 1813 RPT #:[id number] OF REPORTPRProgress xatw0957-71-50R82:41:00G.LQAJ62147671-0440OIWnnxc able for patient svgoZQVONIZWNXCDUK9476-70-06N44:42:46 [facility] 2022-10-25 21:28:00 H10383175103Kk8CCn7G 5+qAIdGqnsW2D6DTMAXkeGR92d+y5 R5ALEMQXksWWZssKg24nl0tq3rW7985-40-79M42:28:00 [facility] ([facility])Infectious Dis. Progress NoteREPORT#:[id number] REPORT STATUS: SignedDATE:10/25/22 TIME: 2127 PATIENT: MATHEW CASTILLO UNIT #: [id number]#: [id number] ROOM/BED: 6630-1DOB: [birth year] AGE: 62 SEX: M ATTEND: Salinas Alba I [facility] AUTHOR: Skip Jaffe MD * ALL [...] new nosocomial acquired infection. at 0256 RPT #:[id number] OF REPORTPRProgress zeox2431-47-89B02:28:00G.YPPK22166805-1081NORiyhc able for patient vsxyBJJYXDRMPUONOA2670-88-60I80:57:01 [facility] 2022-10-25 19:13:00 I63342668782Z2FCkxHZ 2e69mpvZpteTLNyCAR64pc/nZAFaW zRjOXuq/kwcoUAh02wXK2TLiif74256-56-83Q24:13:00 [facility] ([facility]ph[facility] Progress NoteREPORT#:[id number] REPORT STATUS: SignedDATE:10/25/22 TIME: 1912 PATIENT: MATHEW CASTILLO UNIT #: [id number]#: [id number] [address] [birth year] AGE: 62 SEX: M ATTEND: Salinas Alba I [facility] AUTHOR: Toby Koehler MD * ALL [...] (Auto) (14.0 - 32.0 %) 10.6 L [place] % (Auto) (4.8 - 9.0 %) 4.4 L Eos % (Auto) (0.3 - 3.7 %) 2.4 Baso % (Auto) (0.0 - 2.0 %) 0.5 Neut # (Auto) (2.0 - 7.6 x10 3/uL) 12.30 H Lymph # (Auto) (1.0 - 3.8 x10 3/uL) 1.60 [place] # (Auto) (0.1 - 0.8 x10 3/uL) [...] urine in his bladder. CT abdomen from [place] showed that the patient has a very [...] urine in his bladder. CT abdomen from [place] showed that the patient has a very [...] abx per primary team. at 1914 RPT #:[id number] OF REPORTPRProgress vprb2502-60-49O16:13:00G.AYEH03186180-0525SOHuijf able for patient djfrFEUDTUIKSGZIAH7342-21-33G69:14:52 [facility] 2022-10-25 19:12:00 [id number] cCD4Dlv/dNDuW61VEwparqsiPe9FL knyrF2lW9rt7Fy8flr7ARmyAxcV2158-94-78F54:12:00 [facility] ([facility])Internal Medicine Prog. NoteREPORT#:[id number] REPORT STATUS: SignedDATE:10/25/22 TIME: 1911 PATIENT: MATHEW CASTILLO UNIT #: [id number]#: [id number] [place] [facility] [place]DOB: [birth year] AGE: 62 SEX: M ATTEND: Salinas Alba I [facility] AUTHOR: Sofia Cheng NP * ALL edits or amendments must be made on the electronic/computer document * SubjectiveChief complaint:Abdominal distention, hydronephrosisHPI:62-year-old male with last medical history of, BPH, transferred from [place] for urology evaluation and treatment secondary to [...] Tests 10/25/22 0420:[Embedded Image Not Available]Laboratory Tests 10/2520 1634 1046 0770 3060 1951 Chemistry Sodium (134 - 147 mEq/L) [...] (Auto) (14.0 - 32.0 %) 10.6 L [place] % (Auto) (4.8 - 9.0 %) 4.4 L Eos % (Auto) (0.3 - 3.7 %) 2.4 Baso % (Auto) (0.0 - 2.0 %) 0.5 Neut # (Auto) (2.0 - 7.6 x10 3/uL) 12.30 H Lymph # (Auto) (1.0 - 3.8 x10 3/uL) 1.60 [place] # (Auto) (0.1 - 0.8 x10 3/uL) [...] range of motion, normal sensory, normal motor functionNeuro/LITIGATION EXAMINER: alert, oriented X 3Skin: dry, intact, no gross abnormalitiesPsychiatry: no hallucinations, normal moodProblem List/A P: 1. Rupture of ureter Free Text DxA P NotesFree text DxA P notes:Assessment:62-year-old male with last medical history of, BPH, transferred from [place] for urology evaluation and treatment secondary to [...] neededRepeat labsFurther recommendation based on patient's clinical jkpruy7010/17/2022Vital signs within normal limitsHypokalemia 3.2, hypomagnesemia 1.50Renal [...] on IV antibiotic ZosynConsult placed to Dr. Ahmad for patients UTITroponin IBlood precaution, glycemic controlFollow-up [...] controlFollow-up electrolytes and labs, continue medications and zioqpbu5910/22/2022Vital signs within normal limits, POC glucose is [...] explained to patient's daughterContinue with current medicationsFall kfhaksxzxg84/20/2023Stable, POC glucose 154Patient with Black to gravity, [...] supportive care at 2224 at 0830 RPT #:[id number] OF REPORTPRProgress bwow7045-28-70E67:12:00G.FEKM26616120-3475VANwzod able for patient gpejDPALGQIMDBHIWX2495-59-27T68:24:26 [facility] 2022-10-25 10:44:00 T75391971950O0r0g3Xm nCLwth2I0ztxDsQH4+zOTDe2n3eGq OQd3o+ZB/JCYTC09Pz69Er7CbKd6558-52-76A36:44:83748 1-[address] [place] [address] PATIENT NAME: MATHEW CASTILLO ADMIT DATE: 10/16/22ACCOUNT NO: [id number] ROOM NO: G.6630 AGE: 62 REPORT TYPE: [...] admitted through Emergency Roominitially to hospital in [place] with urinary retention of 2 days' durationand was found to have some extravasation of urine in the peritoneal cavity. Thepatient was treated with IV antibiotics and had a Black catheter inserted andabout 3 liters of urine was drained and the Black was left in place and [facility].The patient was evaluated [...] Dictated: 10/25/2022 10:44:58Date Transcribed: 10/25/2022 11:24:45HA/Yulisa #: [id number] ID: [id number] Authenticated and Edited by Skip Jaffe MD On 11/02/22 2:23:50 AM at 0323 PATIENT NAME: MATHEW CASTILLO edmh9377-31-23U94:24:00G.NVV42971172-2485HDBtkauu ble for patient ljwqBNBHOFTPHTEGDN8948-47-15D80:24:12 [facility] 2022-10-24 22:59:00 E80674221423GE5m3BBb oi0ebuM3HVIM2zqbnN+R8cPTz2wXk 2Nwc1YD4X8xE6syi895l4Tx+NEc7325-39-52W57:59:00 [facility])Internal Medicine Prog. NoteREPORT#:[id number] REPORT STATUS: SignedDATE:10/24/22 TIME: 2258 PATIENT: MATHEW CASTILLO UNIT #: [id number]#: [id number] [address] [birth year] AGE: 62 SEX: M ATTEND: Salinas Alba I [facility] AUTHOR: Sofia Cheng NP * ALL edits or amendments must be made on the electronic/computer document * SubjectiveChief complaint:Abdominal distention, hydronephrosisHPI:62-year-old male with last medical history of, BPH, transferred from [place] for urology evaluation and treatment secondary to [...] 100 ML Cholecalciferol 1,000 INTL.UNITS DAILY 10/18 09 CKD 10/24 PO 11/17 0859 0942 Tamsulosin [...] 11/15 1344 Benztropine Mesylate 1 MG DAILY 07/12 1330 AC 10/24 PO 11/15 1329 0942 [...] range of motion, normal sensory, normal motor functionNeuro/LITIGATION EXAMINER: alert, oriented X 3Skin: dry, intact, no gross abnormalitiesPsychiatry: no hallucinations, normal moodProblem List/A P: 1. Rupture of ureter Free Text DxA P NotesFree text DxA P notes:Assessment:62-year-old male with last medical history of, BPH, transferred from [place] for urology evaluation and treatment secondary to [...] neededRepeat labsFurther recommendation based on patient's clinical azshca7010/17/2022Vital signs within normal limitsHypokalemia 3.2, hypomagnesemia 1.50Renal [...] controlFollow-up electrolytes and labs, continue medications and pmwuhnp5110/22/2022Vital signs within normal limits, POC glucose is [...] explained to patient's daughterContinue with current medicationsFall eppbehfzqw59/20/2023Stable, POC glucose 154Patient with Black to gravity, tolerating p.o. intakeNephro is following. On tamsulosin p.o.Continue pain control, glycemic control, fall precautionContinue medications and present care at 2223 at 0830 RPT #:[id number] OF REPORTPRProgress epou1985-08-12G56:59:00G.MYYW62501897-9551EQXjpkb able for patient xbsoSRSRNNCNBTPFHN4639-23-94L23:24:17 [facility] 2022-10-24 19:41:00 [id number] hwHL9REu/7apuZY/AyYhxdYs58gAm Ch3YURRCIg9NusBLbcFhT4gJ28M2013-34-76W26:41:00 [facility] ([facility])Infectious Dis. Progress NoteREPORT#:[id number] REPORT STATUS: SignedDATE:10/24/22 TIME: 1940 PATIENT: MATHEW CASTILLO UNIT #: [id number]#: [id number] ROOM/BED: 6630-1DOB: [birth year] AGE: 62 SEX: M [...] closely for any diarrhea. at 0316 RPT #:[id number] OF REPORTPRProgress vito3264-42-07Y66:41:00G.CKNH50890725-8075CPCqyxv able for patient ltlyKFOHZPAFCHHNQO4747-52-33N86:16:37 [facility] 2022-10-24 19:12:00 [id number] 5v0QGO369WjDbHjk2+nSXnzIFjnKL AXewv8jvfFyJKz9STLbUl8nVnEm6575-53-85M36:12:10888 0-[address] [address] PATIENT NAME: MATHEW CASTILLO ADMIT DATE: 10/16/22ACCOUNT NO: [id number] [place] [facility] [place] AGE: 62 REPORT TYPE: PROGRESS NOTE SEX: [...] sodium is 138, potassium 3.8, chloride 107, zsevdhmhhzp24, glucose 98. BUN 11, creatinine 1.0, estimated [...] medical problems [place]ad[place] presented with urinaryretention. The patient was found to have 3 liters of urine in the bladder. Hehad a Black catheter inserted and subsequently was transferred to [facility] for urology evaluation. He was initially treated [...] Dictated: 10/24/2022 19:12:07Date Transcribed: 10/24/2022 19:51:44HA/Concepcion #: [id number] ID: [id number] Authenticated and Edited by Skip Jaffe MD On 11/02/22 2:23:34 AM at 0323 PATIENT NAME: MATHEW CASTILLO dcsv7619-06-73N39:51:00G.[id number] ble for patient hbtwPIIAZYYNSINMDF6452-04-40T33:24:12 [facility] 2022-10-24 16:08:00 [id number] jDXK0NGXC8RtjN/sMaFTNPE/KIANAu/s f3STW/sqyMs6rgJhHICYFiBI0E05248-25-92W33:08:00 [facility] ([facility])Nephrology Progress NoteREPORT#:[id number] REPORT STATUS: SignedDATE:10/24/22 TIME: 160 PATIENT: MATHEW CASTILLO UNIT #: [id number]#: [id number] [address] AGE: 62 SEX: M ATTEND: Salinas Alba I [facility] AUTHOR: Carmen Kemp * ALL edits [...] urine in his bladder. CT abdomen from [place] showed that the patient has a very [...] urine in his bladder. CT abdomen from [place] showed that the patient has a very [...] above A/P at 1740 at 2124 RPT #:[id number] OF REPORTPRProgress hgnf1699-49-69M71:08:00G.BDLU38713353-3722ZFZosce able for patient yhchHXMWVWFDIURWSK5659-75-38E49:40:54 [facility] 2022-10-23 21:33:00 [id number] cpU9Zd3Qa8aoOPYhCHQeHFSJraEOy 9OWCtvkh8DIcyRxbBv7cbOgPCBv5825-47-01A03:33:00 [facility] Center[facility] Medicine Prog. NoteREPORT#:[id number] REPORT STATUS: SignedDATE:10/23/22 TIME: 2132 PATIENT: MATHEW CASTILLO UNIT #: [id number]#: [id number] [address] AGE: 62 SEX: M ATTEND: Salinas Alba I [facility] AUTHOR: Sofia Cheng NP * ALL edits or amendments must be made on the electronic/computer document * SubjectiveChief complaint:Abdominal distention, hydronephrosisHPI:62-year-old male with last medical history of, BPH, transferred from [place] for urology evaluation and treatment secondary to [...] suicidal ideation. Objective GeneralVS/I O:Laboratory Tests 10/23 10/23 10/23 10/23 10/23 195 1622 [...] range of motion, normal sensory, normal motor functionNeuro/LITIGATION EXAMINER: alert, oriented X 3Skin: dry, intact, no gross abnormalitiesPsychiatry: no hallucinations, normal moodProblem List/A P: 1. Rupture of ureter Free Text DxA P NotesFree text DxA P notes:Assessment:62-year-old male with last medical history of, BPH, transferred from [place] for urology evaluation and treatment secondary to [...] neededRepeat labsFurther recommendation based on patient's clinical ajmxcf6910/17/2022Vital signs within normal limitsHypokalemia 3.2, hypomagnesemia 1.50Renal [...] controlFollow-up electrolytes and labs, continue medications and ocockna1810/22/2022Vital signs within normal limits, POC glucose is [...] medicationsFall precaution at 0250 at 0842 RPT #:[id number] OF REPORTPRProgress rueb7334-82-73Q97:33:00G.MCYL38610020-6760TYBmdna able for patient oetzMXENTCKPKUHBLS1958-60-40N77:51:16 [facility] 2022-10-23 18:51:00 D09812272944g9Nk5RPD bJluG8M00rAKL3mEaOLPFau6i/gJ1 GiMdeqglBohJU9jX0yhqnRwgBVO2339-26-83D50:51:00 [facility] ([facility])Infectious Dis. Progress NoteREPORT#:[id number] REPORT STATUS: SignedDATE:10/23/22 TIME: 1850 PATIENT: MATHEW CASTILLO UNIT #: [id number]#: [id number] [address] AGE: 62 SEX: M ATTEND: [...] closely for any diarrhea. at 0256 RPT #:[id number] OF REPORTPRProgress vluv4065-47-25T40:51:00G.LMTG04610607-8302KLHaduy able for patient qkdwCASQLDHVOKQNBC0648-24-68D37:56:58 [facility] 2022-10-23 18:27:00 [id number] ickJ3ACSgOySzfL1YVIhW3x3xHvMo +AAAVDmAZb7rgWeCHQ04+hf8N+f8346-17-80O20:27:64[address] [address] PATIENT NAME: MATHEW CASTILLO ADMIT DATE: 10/16/22ACCOUNT NO: [id number] ROOM NO: G.6630 AGE: 62 REPORT TYPE: [...] sodium is 139, potassium 4.0, chloride 107, kpmbpibspku23, glucose 102, BUN 12, creatinine 1.1, estimated GFR is 75.4, calcium is 7.8,magnesium is 1.72. Blood cultures x2 are negative so far at 48 hours ofincubation. PATIENT NAME: MATHEW CASTILLO ASSESSMENT AND PLAN: The patient with multiple medical problems was initiallyadmitted through the Emergency Room where he was transferred from [facility] because of urinary retention. The patient presented to [facility] with 2 days' history of not able to pass any urine and he was found tohave 3 liters urine in his bladder with some extravasation of urine into theperitoneal cavity. The patient had a Black catheter placed and bladder wasrelieved. He was transferred to [facility] forevaluation by Urology Service. The patient was kept on IV ceftriaxone.Initially, he showed improvement in his condition; however, he had a temperatureof up to 37.8 degrees Celsius hosting engineer on 10/20/2022, and at that time, hehad [...] 10/23/2022 18:27:31Date Transcribed: 10/23/2022 18:54:06 ESTRADA/Concepcion #: [id number] ID: [id number] Authenticated and Edited by Skip Jaffe MD On 11/02/22 2:23:13 AM at 0225 PATIENT NAME: MATHEW CASTILLO qgoq6165-06-56M45:54:00G.UEB10975083-0492BFWiaxzs ble for patient dcalTNUJPXOCPOEKYF7035-14-25G48:25:49 [facility] 2022-10-23 13:24:00 [id number] oLsyOkcDKj9axNvsUadwAheyGq6M/ 9+ErWhQbvoxwVMzfpVN48h9gpqI0263-82-90U59:24:00 [facility] ([facility]Nephrology Progress NoteREPORT#:[id number] REPORT STATUS: SignedDATE:10/23/22 TIME: 1323 PATIENT: MATHEW CASTILLO UNIT #: [id number]#: [id number] [address] AGE: 62 SEX: M ATTEND: Salinas Alba I [facility] AUTHOR: Carmen Kemp * ALL edits [...] urine in his bladder. CT abdomen from [place] showed that the patient has a very [...] urine in his bladder. CT abdomen from [place] showed that the patient has a very [...] agree with above A/P at 1741 at 2482 RPT #:[id number] OF REPORTPRProgress tauj7264-27-91R36:24:00G.WCUZ30867560-1408LWKyhra able for patient hoecENCNLNYPIVEHBU7054-06-53L69:42:17 [facility] 2022-10-22 18:32:00 [id number] oNJtcn0hC4kbUZysd1QpedgrayOpr cBkgT0WSCP+aDyp/EFpLfHQj3sL5312-50-08F92:32:00 [facility] ([facility])Infectious Dis. 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 Remains afebrile at the present time. [...] IV antibiotics for now. at 0219 RPT #:[id number] OF REPORTPRProgress psmr8403-28-73O08:32:00G.ZBFN48543377-2468GVEolrg able for patient wulnWBNYPTFMLOXCUT2422-02-89G45:19:49 [facility] 2022-10-22 18:20:00 [id number] L1inS42smh9ipPS8mHG0g622BbfhC wKudlvIhcjDB3Z4JKc9UERZDzy26113-30-13G26:20:82514 [address] [address] PATIENT NAME: MATHEW CASTILLO ADMIT DATE: 10/16/22ACCOUNT NO: [id number] ROOM NO: G.6630 AGE: 62 REPORT TYPE: [...] comorbidities, was initiallyad[facility] through [facility] with acute urinaryretention. The patient has a [...] need for urology evaluation, [facility] was [facility]. The patient was continued on IVceftriaxone and had been doing fairly well until hosting engineer yesterday when hestarted to have fever of [...] Dictated: 10/22/2022 18:20:30Date Transcribed: 10/22/2022 19:52:40/Trina #: [id number] ID: [id number] Authenticated and Edited by Skip Jaffe MD On 11/02/22 2:22:51 AM at 0323 PATIENT NAME: YUKI CASTILLORELL SINCERE iplf6150-38-92P47:52:00G.DLU46492408-3728BEEyiqbb ble for patient ibgaNRQTPVKNWABSSI9608-76-48X66:24:12 [facility] 2022-10-22 18:15:00 [id number]/hYJ6AQ X9TYpxjJetaM42oy++tS3LtVJHieE qzZKNOzpvdMYixbGJ4ows3Df83D9863-28-23C91:15:00 [facility])Internal Medicine Prog. NoteREPORT#:[id number] REPORT STATUS: SignedDATE:10/22/22 TIME: 1814 PATIENT: YUKI CASTILLORELL SINCERE UNIT #: [id number]#: [id number] [address] [birth year] AGE: 62 SEX: M ATTEND: [facility] [facility] AUTHOR: Sofia Cheng NP * ALL edits or amendments must be made on the electronic/computer document * SubjectiveChief complaint:Abdominal distention, hydronephrosisHPI:62-year-old male with last medical history of, BPH, transferred from [place] for urology evaluation and treatment secondary to [...] Room air 10/22 1701 Temp 36.9 10/22 1702 Pulse 72 10/22 [...] range of motion, normal sensory, normal motor functionNeuro/LITIGATION EXAMINER: alert, oriented X 3Skin: dry, intact, no gross abnormalitiesPsychiatry: no hallucinations, normal moodProblem List/A P: 1. Rupture of ureter Free Text DxA P NotesFree text DxA P notes:Assessment:62-year-old male with last medical history of, BPH, transferred from [place] for urology evaluation and treatment secondary to [...] neededRepeat labsFurther recommendation based on patient's clinical wvtlut0610/17/2022Vital signs within normal limitsHypokalemia 3.2, hypomagnesemia 1.50Renal [...] controlFollow-up electrolytes and labs, continue medications and tpsflkt4610/22/2022Vital signs within normal limits, POC glucose is controlledHypocalcemia 7.8, hypomagnesemia 1.72No sonographic evidence for DVTBlood culture shows no growth after 48 hoursPatient with good urine output, renal function is improved, patient will follow-up as an outpatientStill on IV antibiotic Zosyn, tamsulosin p.o.Continue electrolyte control-replace magnesiumContinue pain control, glycemic controlFollow-up labs, continue medications and supportive care at 0314 at 0842 RPT #:[id number] OF REPORTPRProgress yymr8257-66-85W76:15:00G.VGTL35045490-4320BIPejrd able for patient rxunTUENBEYZXBNCPU7786-41-85O34:14:38 [facility] 2022-10-22 09:31:00 X76228271488kvB4uObO j/bFGr2eFL2obmmGnipQukNAFfupG il32Dn4Ek5ZJzWapErhRZb3ve9l0810-15-59N65:31:00 [facility] ([facility])Nephrology Progress NoteREPORT#:[id number] REPORT STATUS: SignedDATE:10/22/22 TIME: 930 PATIENT: MATHEW CASTILLO UNIT #: [id number]#: [id number] [place] [facility] [place]: [birth year] AGE: 62 SEX: M ATTEND: Sal[place] Alba I [facility] AUTHOR: Carmen Kemp * ALL edits [...] 10/22 10/22 10/22 10/22 10/21 1700 1119 [id number] 2003 Chemistry Sodium (134 - 147 mEq/L) [...] urine in his bladder. CT abdomen from [place] showed that the patient has a very [...] urine in his bladder. CT abdomen from [place] showed that the patient has a very [...] patient's nurse, and . Toby Koehler 10/22/22 1732:Attestations Physician AttestationReviewed findings plan:Patient examined Renal function improved and wnl, black to gravity, -2/2 post-obstrucitve uropathy, replace electrolytes as needed, agree with aboveA/P at 1842 at 2220 RPT #:[id number] OF REPORTPRProgress vjjv3244-59-07V71:31:00G.XFZH92682846-8190EQFvzin able for patient zmbhNELNOXXSEPHYWP6462-68-61X42:42:25 [facility] 2022-10-21 20:48:00 [id number]+6U6 WtGOp9ha/0EzHEAkrJxm/DYHjvyDQ 72aE8/hzv6Hrap+8JP5eBW+IW8+8220-19-56V05:48:00 [facility])Internal Medicine Prog. NoteREPORT#:[id number] REPORT STATUS: SignedDATE:10/21/22 TIME: 2047 PATIENT: MATHEW CASTILLO UNIT #: [id number]#: [id number] [address] [birth year] AGE: 62 SEX: M ATTEND: [place] Alba I [facility] AUTHOR: Sofia Cheng TRAY LINE SUPERVISOR * ALL edits or amendments must be made on the electronic/computer document * SubjectiveChief complaint:Abdominal distention, hydronephrosisHPI:62-year-old male with last medical history of, BPH, transferred from [place] for urology evaluation and treatment secondary to [...] range of motion, normal sensory, normal motor functionNeuro/LITIGATION EXAMINER: alert, oriented X 3Skin: dry, intact, no gross abnormalitiesPsychiatry: no hallucinations, normal moodProblem List/A P: 1. Rupture of ureter Free Text DxA P NotesFree text DxA P notes:Assessment:62-year-old male with last medical history of, BPH, transferred from [place] for urology evaluation and treatment secondary to [...] neededRepeat labsFurther recommendation based on patient's clinical apbgnn7810/17/2022Vital signs within normal limitsHypokalemia 3.2, hypomagnesemia 1.50Renal [...] and present at 0104 at 1009 RPT #:[id number] OF REPORTPRProgress oeye5535-29-10J68:48:00G.FWUE00639363-5371NTBamkr able for patient sikhGWGIZMQKHHIXVH8781-25-18Y67:04:19 [facility] 2022-10-21 19:01:00 [id number] 4/qo7lk5yBitFwiCCViV+pydO2YLZ 9ltmW3N4+hh0xxMXqYyBK6Ew1ZP5134-58-14Q52:01:00 [facility])Infectious Dis. Progress NoteREPORT#:[id number] REPORT STATUS: SignedDATE:10/21/22 TIME: 1900 PATIENT: MATHEW CASTILLO UNIT #: [id number]#: [id number] [address] [birth year] AGE: 62 SEX: M ATTEND: Sal[place] Alba I [facility] AUTHOR: Skip Jaffe MD * ALL [...] Discussed with Skylar MENDIOLA. at 0242 RPT #:[id number] OF REPORTPRProgress lwmq2820-79-55F23:01:00G.BKGG10513777-2290XIMzbng able for patient rbzrNCWSHJJRODSACU1978-89-84L29:42:47 [facility] 2022-10-21 11:23:00 [id number] B+uRZzN7a1TjeObkYmKx8xwt7NqLo ITY7i5F7/GFC5w/tUMVIIZhZUha3336-68-56R07:23:00 [facility] ([facility]Neph[facility] Progress NoteREPORT#:[id number] REPORT STATUS: SignedDATE:10/21/22 TIME: 1123 PATIENT: MATHEW CASTILLO UNIT #: [id number]#: [id number] [address] [birth year] AGE: 62 SEX: M ATTEND: Sal[place] Alba I [facility] AUTHOR: Carmen Kemp * ALL edits [...] urine in his bladder. CT abdomen from [place] showed that the patient has a very [...] urine in his bladder. CT abdomen from [place] showed that the patient has a very [...] above A/P at 1640 at 2055 RPT #:[id number] OF REPORTPRProgress odab3204-82-17T85:23:00G.OAWO39538487-4526VXStsat able for patient khphLGNSQYLKEUIVEH9599-43-80R91:40:19 [facility] 2022-10-21 03:59:00 S16610455837Wvf3ru+N PaFjU8znZCMPR3EVTDqxqKLVGTneG fvjQzXcfopp511NsT6JUWNvp3L39966-49-67A25:59:[address] [place], [place] [address] PATIENT NAME: MATHEW CASTILLO ADMIT DATE: 10/16/22ACCOUNT NO: [id number] [place] [facility] [place] 62 REPORT TYPE: CONSULTATION REPORT SEX: [...] who was initially admitted to hospital in [place] where he presented with acute urinary retention. [...] need forurology evaluation, [facility] On admission, the [...] temperature of up to 37.8 degrees Celsius hosting engineer today and after that he had been only having low-grade fever. Denies any nausea, vomiting or diarrhea. Denies any chest pain, cough, expectoration, or shortness of breath. He continues to have a Black catheter in place and admits to having suprapubic areasoreness and pain, however, states that the pain and soreness he had at the timeof presentation to the [facility] has resolved. Denies any joint pains. 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 IMPRESSION: The patient with multiple comorbidities including history of schizophrenia and benign prostatic hypertrophy with worsening urinary difficulties for last over 2 years, was admitted through emergency room where hewas transferred from [facility] because of need for urology evaluation. The [...] to 37.8 degrees Celsius last night and hosting engineer and had developed marked leukocytosis. Clinically, he [...] Dictated: 10/21/2022 03:59:46Date Transcribed: 10/21/2022 04:40:04ESTRADA/Annelise #: [id number] ID: [id number] by Skip Jaffe MD On 11/02/2022 02:22:37 AM at 0222 PATIENT NAME: YUKI CASTILLOYENNI POST :40:00G.ND [id number] for patient nghqRXEXOXOAKXECSS5697-77-13Y78:23:17 [facility] 2022-10-20 20:34:00 [id number] AJVbDpKOE1/eU33TAT5ewjFGHC9qr DMhnobe+CPqEFvW1i3kHwDe6FAd7767-93-37C04:34:00 [facility] ([facility])Nephrology Progress NoteREPORT#:[id number] REPORT STATUS: SignedDATE:10/20/22 TIME: 2033 PATIENT: MATHEW CASTILLO UNIT #: [id number]#: [id number] ROOM/BED: 6630-1DOB: [birth year] AGE: 62 SEX: M ATTEND: Salinas Alba I [facility] AUTHOR: Toby Koehler MD * ALL [...] - 32.0 %) 9.5 L 7.3 L [place] % (Auto) (4.8 - 9.0 %) 7.2 7.5 Eos % (Auto) (0.3 - 3.7 %) 2.6 2.2 Baso % (Auto) (0.0 - 2.0 %) 0.4 0.3 Neut # (Auto) (2.0 - 7.6 x10 3/uL) 13.75 H 15.38 H Lymph # (Auto) (1.0 - 3.8 x10 3/uL) 1.67 1.40 [place] # (Auto) (0.1 - 0.8 x10 3/uL) [...] Impressions:RADIOLOGY - XR CHEST 1 V 10/20 010 Report Impression - Status: SIGNED Entered: 10/20/2022 [...] urine in his bladder. CT abdomen from [place] showed that the patient has a very [...] urine in his bladder. CT abdomen from [place] showed that the patient has a very [...] IV hydralazine Schizophrenia-Home medications resumed at 2150 [facility] #:[id number] OF REPORTPRProgress gbgs6705-21-10P76:34:00G.IHSU07294593-9467MKUthxw able for patient fflfMSJVJLLSANRBNX3278-16-76J38:50:59 [facility] 2022-10-20 18:11:00 [id number] FAQF14DMqAGksja2f8ipXDc/7B3qc ESyMXYun+ti33EvzlrmAxIenGq43217-44-15H85:11:00 [facility] Prog. NoteREPORT#:[id number] REPORT STATUS: SignedDATE:10/20/22 TIME: 1810 PATIENT: MATHEW CASTILLO UNIT #: [id number]#: [id number] ROOM/BED: G6630-1DOB: [birth year] AGE: 62 SEX: M ATTEND: Salinas Alba I [facility] AUTHOR: Sofia Cheng T[employer] SUPERVISOR * ALL edits or amendments must be made on the electronic/computer document * SubjectiveChief complaint:Abdominal distention, hydronephrosisHPI:62-year-old male with last medical history of, BPH, transferred from [place] for urology evaluation and treatment secondary to [...] Coagulation INR (0.8 - 1.2) 1.1 PTT ([place]) (25.0 - 39.5 Seconds) 26.1 PT Patient/Control [...] - 32.0 %) 9.5 L 7.3 L [place] % (Auto) (4.8 - 9.0 %) 7.2 7.5 Eos % (Auto) (0.3 - 3.7 %) 2.6 2.2 Baso % (Auto) (0.0 - 2.0 %) 0.4 0.3 Neut # (Auto) (2.0 - 7.6 x10 3/uL) 13.75 H 15.38 H Lymph # (Auto) (1.0 - 3.8 x10 3/uL) 1.67 1.40 [place] # (Auto) (0.1 - 0.8 x10 3/uL) [...] range of motion, normal sensory, normal motor functionNeuro/LITIGATION EXAMINER: alert, oriented X 3Skin: dry, intact, no gross abnormalitiesPsychiatry: no hallucinations, normal moodProblem List/A P: 1. Rupture of ureter Free Text DxA P NotesFree text DxA P notes:Assessment:62-year-old male with last medical history of, BPH, transferred from [place] for urology evaluation and treatment secondary to [...] neededRepeat labsFurther recommendation based on patient's clinical mwxoti4910/17/2022Vital signs within normal limitsHypokalemia 3.2, hypomagnesemia 1.50Renal [...] supportive care at 0141 at 1009 RPT #:[id number] OF REPORTPRProgress extn5836-06-54W84:11:00G.RADU27389962-1147WCWircw able for patient saqlLWLMVSBPDEWRBP9696-26-47Y48:42:15 [facility] 2022-10-20 17:06:00 [id number] wsxp/47YSAyI0maFxiyZupqTgq9Eb OvR0/EDrBhk7LzhX6orBdNOdBTr6486-89-66C85:06:00 [facility] ([facility])Infect Disease Consult NoteREPORT#:[id number] REPORT STATUS: SignedDATE:10/20/22 TIME: 1706 PATIENT: MATHEW CASTILLO UNIT #: [id number]#: [id number] [address] [birth year] AGE: 62 SEX: M ATTEND: [...] Allergies:No Known Allergies (10/16/22) at 0239 RPT #:[id number] OF REPORTBMMxzwbzfrxyxj5804-84-31O32:06:00G.PDOC2 7223335-5359EKGiuskaryl for patient dnvtBITNCLZLQAQMZR3489-86-31A81:40:06 [facility] 2022-10-20 01:07:00 [id number] 7hIBADezcAWQLc8FjPdfv+AYBwgnw 2Qjg6zfQ6KXv7CELvOPOCv2RTXD1899-36-53J90:07:87657 [address] [address] PATIENT NAME: MATHEW CASTILLO ADMIT DATE: 10/16/22ACCOUNT NO: [id number] ROOM NO: G.6630 AGE: 62 REPORT TYPE: eELECTROCARDIOGRAM REPORT SEX: M ADMITTING PHYSICIAN:Salinas Alba MD ATTENDING PHYSICIAN:Salinas Alba MD Order:[id number] Reason : Sepsis Test Date/Time Stamp:FriOct 20 [...] MD at 1247 PATIENT NAME: MATHEW CASTILLO .[id number] AVAvailable for patient uqkqWEVWWKSYRMQMPD5742-93-84D48:47:27 [facility] 2022-10-19 22:43:00 Y77964882346+bH+pxod Qdk4ANAK/XHn6yUFPt87hEmlsY0f/ bywhe16r6W5pElJvxkoebL1f/Q73018-89-68P51:43:00 [facility] Prog. NoteREPORT#:[id number] REPORT STATUS: SignedDATE:10/19/22 TIME: 2242 PATIENT: MATHEW CASTILLO UNIT #: [id number]#: [id number] [address] [birth year] AGE: 62 SEX: M ATTEND: Salinas Alba I [facility] AUTHOR: Sofia Cheng TRAY LINE SUPERVISOR * ALL edits or amendments must be made on the electronic/computer document * SubjectiveChief complaint:Abdominal distention, hydronephrosisHPI:62-year-old male with last medical history of, BPH, transferred from [place] for urology evaluation and treatment secondary to [...] - 32.0 %) 15.7 15.6 10.6 L [place] % (Auto) (4.8 - 9.0 %) 8.5 10.1 H 12.8 H Eos % (Auto) (0.3 - 3.7 %) 6.0 H 7.5 H 2.7 Baso % (Auto) (0.0 - 2.0 %) 0.7 0.7 0.4 Neut # (Auto) (2.0 - 7.6 x10 3/uL) 6.09 5.53 8.23 H Lymph # (Auto) (1.0 - 3.8 x10 3/uL) 1.48 1.39 1.22 [place] # (Auto) (0.1 - 0.8 x10 3/uL) [...] pH (5.0 - 7.0) 5.0 Ur Specific [place] (1.005 - 1.030) 1.015 Urine Protein (NEGATIVE) [...] 10/19 10/19 10/19 10/19 1917 1615 1135 0793 0347 Chemistry Sodium (134 - 147 mEq/L) [...] (1.80 - 2.40 mg/dL) 1.65 L Microbiology:10/19 346 [...] PRN PRN 10/16 1345 AC Acetaminophen PO 07/17 1344 Ondansetron HCl 4 MG Q4H PRN [...] Pulse Resp B/P B/P Mean Pulse Ox ObO884/-10/19 37.0-37.2 66-85 14-17 105-142/67-80 80.3-100.6 95-98 Last [...] range of motion, normal sensory, normal motor functionNeuro/LITIGATION EXAMINER: alert, oriented X 3Skin: dry, intact, no gross abnormalitiesPsychiatry: no hallucinations, normal moodProblem List/A P: 1. Rupture of ureter Free Text DxA P NotesFree text DxA P notes:Assessment:62-year-old male with last medical history of, BPH, transferred from [place] for urology evaluation and treatment secondary to [...] neededRepeat labsFurther recommendation based on patient's clinical bttagb2610/17/2022Vital signs within normal limitsHypokalemia 3.2, hypomagnesemia 1.50Renal [...] present care at 0229 at 1514 RPT #:[id number] OF REPORTPRProgress tzes1474-25-04G41:43:00G.SDZU69165457-4361QPYxtvi able for patient sakkVMBAXPADAEGWLR5644-57-36G17:29:44 [facility] 2022-10-19 20:14:00 [id number]/jmkQ kdAAZC8Tp/x8XwWt2zPcubx8Mq+fabi Zs6tZ44V61xK/gzZEVHppZs8Zpf8766-53-86N40:14:00 [facility] CenterNeph[facility] Progress NoteREPORT#:[id number] REPORT STATUS: SignedDATE:10/19/22 TIME: 2013 PATIENT: MATHEW CASTILLO UNIT #: [id number]#: [id number] [address] AGE: 62 SEX: M ATTEND: [...] 10/19 10/19 10/19 10/19 10/18 1615 1135 [id number] 2021 Chemistry Sodium (134 - 147 mEq/L) [...] % (Auto) (14.0 - 32.0 %) 15.7 [place] % (Auto) (4.8 - 9.0 %) 8.5 Eos % (Auto) (0.3 - 3.7 %) 6.0 H Baso % (Auto) (0.0 - 2.0 %) 0.7 Neut # (Auto) (2.0 - 7.6 x10 3/uL) 6.09 Lymph # (Auto) (1.0 - 3.8 x10 3/uL) 1.48 [place] # (Auto) (0.1 - 0.8 x10 3/uL) [...] pH (5.0 - 7.0) 5.0 Ur Specific [place] (1.005 - 1.030) 1.015 Urine Protein (NEGATIVE) [...] urine in his bladder. CT abdomen from [place] showed that the patient has a very [...] urine in his bladder. CT abdomen from [place] showed that the patient has a very [...] IV hydralazine Schizophrenia-Home medications resumed at 2148 [facility] #:[id number] OF REPORTPRProgress qynm7634-67-04S18:14:00G.XGIG20283962-8840NXHrbuc able for patient jiphHGLVFMSTAFHZVR9451-61-37V50:49:08 [facility] 2022-10-18 20:26:00 [id number] N05iVX1uOzWvVFJzyIfBGeZLGtwe5 sblLOfUxsLrGnxvTJJUWYx/ITw+2091-30-84M06:26:00 [facility])Internal Medicine Prog. NoteREPORT#:[id number] REPORT STATUS: SignedDATE:10/18/22 TIME: 2025 PATIENT: MATHEW CASTILLO UNIT #: [id number]#: [id number] [place] [facility] [place]GE: 62 SEX: M ATTEND: Salinas Alba I [facility] AUTHOR: Sofia Cheng TRAY LINE SUPERVISOR * ALL edits or amendments must be made on the electronic/computer document * SubjectiveChief complaint:Abdominal distention, hydronephrosisHPI:62-year-old male with last medical history of, BPH, transferred from [place] for urology evaluation and treatment secondary to [...] Pulse Ox 97 10/18 1854 B/P 132/81 10/18 1854 B/P Mean 98.2 10/18 1854 O2 Delivery [...] % (Auto) (14.0 - 32.0 %) 15.6 [place] % (Auto) (4.8 - 9.0 %) 10.1 H Eos % (Auto) (0.3 - 3.7 %) 7.5 H Baso % (Auto) (0.0 - 2.0 %) 0.7 Neut # (Auto) (2.0 - 7.6 x10 3/uL) 5.53 Lymph # (Auto) (1.0 - 3.8 x10 3/uL) 1.39 [place] # (Auto) (0.1 - 0.8 x10 3/uL) [...] range of motion, normal sensory, normal motor functionNeuro/LITIGATION EXAMINER: alert, oriented X 3Skin: dry, intact, no gross abnormalitiesPsychiatry: no hallucinations, normal moodProblem List/A P: 1. Rupture of ureter Free Text DxA P NotesFree text DxA P notes:Assessment:62-year-old male with last medical history of, BPH, transferred from [place] for urology evaluation and treatment secondary to [...] neededRepeat labsFurther recommendation based on patient's clinical rxkhul4510/17/2022Vital signs within normal limitsHypokalemia 3.2, hypomagnesemia 1.50Renal [...] and supportive care at 2012 at [address] [facility] #:[id number] OF REPORTPRProgress mags5828-67-68K56:26:00G.LDDH83439617-6527IEBekrk able for patient czvlVRIXYPWKVPJDCD9738-92-56F14:12:32 [facility] 2022-10-18 17:48:00 [id number] fE+IeFOcwrgQQZYJ7NtzV6nNDZ11z C1enK7hyPrtf0C/dOAWxr2mkpAN9167-92-66R13:48:00 [facility] CenterNeph[facility] Progress NoteREPORT#:[id number] REPORT STATUS: SignedDATE:10/18/22 TIME: 1747 PATIENT: MATHEW CASTILLO UNIT #: [id number]#: [id number] [place] [facility] [place]DOB: [birth year] AGE: 62 SEX: M ATTEND: Salinas Alba I [facility] AUTHOR: Carmen Kemp * ALL edits [...] 24 hour I O ending at 0700: 07/14 0700 10/17 1900 Intake Total 480 Output [...] % (Auto) (14.0 - 32.0 %) 15.6 [place] % (Auto) (4.8 - 9.0 %) 10.1 H Eos % (Auto) (0.3 - 3.7 %) 7.5 H Baso % (Auto) (0.0 - 2.0 %) 0.7 Neut # (Auto) (2.0 - 7.6 x10 3/uL) 5.53 Lymph # (Auto) (1.0 - 3.8 x10 3/uL) 1.39 [place] # (Auto) (0.1 - 0.8 x10 3/uL) [...] urine in his bladder. CT abdomen from [place] showed that the patient has a very [...] urine in his bladder. CT abdomen from [place] showed that the patient has a very [...] K and magnesium supplementation. at 1937 RPT #:[id number] OF REPORTPRProgress urgb5254-66-38D94:48:00G.SPOJ10408902-2456ALPhobo able for patient bhkuREEUVPYVSKFWBF8490-47-82K49:50:34 [facility] 2022-10-17 22:43:00 [id number] EFn5em5axuEZMVDp+qXIC8BtRwm6T 1yyhwUK222uIkU9d88pkzt9tZyC7217-17-39V85:43:00 [facility] CenterInternal Medicine Prog. NoteREPORT#:[id number] REPORT STATUS: SignedDATE:10/17/22 TIME: 2242 PATIENT: MATHEW CASTILLO UNIT #: [id number]#: [id number] [address] [birth year] AGE: 62 SEX: M ATTEND: Salinas Alba I [facility] AUTHOR: Sofia Cheng NP * ALL edits or amendments must be made on the electronic/computer document * SubjectiveChief complaint:Abdominal distention, hydronephrosisHPI:62-year-old male with last medical history of, BPH, transferred from [place] for urology evaluation and treatment secondary to [...] Pulse Resp B/P B/P Mean Pulse Ox YnK288/-10/17 37.2-37.5 83-100 16-18 119-133/70-79 86.3-96.8 93-95 Last [...] (HUMALOG) 0 AC HS SUBQ ResultsFindings/Data:Laboratory Tests 10/17/22712:[Embedded Image Not Available]Laboratory Tests 10/17 10/17 10/17 [...] (Auto) (14.0 - 32.0 %) 10.6 L [place] % (Auto) (4.8 - 9.0 %) 12.8 H Eos % (Auto) (0.3 - 3.7 %) 2.7 Baso % (Auto) (0.0 - 2.0 %) 0.4 Neut # (Auto) (2.0 - 7.6 x10 3/uL) 8.23 H Lymph # (Auto) (1.0 - 3.8 x10 3/uL) 1.22 [place] # (Auto) (0.1 - 0.8 x10 3/uL) [...] range of motion, normal sensory, normal motor functionNeuro/LITIGATION EXAMINER: alert, oriented X 3Skin: dry, intact, no gross abnormalitiesPsychiatry: no hallucinations, normal moodProblem List/A P: 1. Rupture of ureter Free Text DxA P NotesFree text DxA P notes:Assessment:62-year-old male with last medical history of, BPH, transferred from [place] for urology evaluation and treatment secondary to [...] neededRepeat labsFurther recommendation based on patient's clinical qsbyhj5710/17/2022Vital signs within normal limitsHypokalemia 3.2, hypomagnesemia 1.50Renal function is improved, discontinue bicarb drip, continue electrolyte control-replace as needed per nephroUrology is followingContinue tamsulosinBP control-on hydralazine as needed, pain controlContinue telemetry monitoring, intake and output, fall precautionFollow-up labs, continue medications and supportive care at 0210 at 1300 RPT #:[id number] OF REPORTPRProgress fokt4237-35-89T15:43:00G.OGPX97955080-0735AFMreqv able for patient anjuCYIOOLZUESIGPI2483-65-01L92:10:49 [facility] 2022-10-17 17:41:00 [id number] N7CfCHz5GUoEMg03I6b609wutpwDk Tf6/7+9dRs0ckUyHbhtfxqZEP5w1948-68-09W96:41:00 [facility] ([facility])Urology Progress NoteREPORT#:[id number] REPORT STATUS: SignedDATE:10/17/22 TIME: 1740 PATIENT: MATHEW CASTILLO UNIT #: [id number]#: [id number] [address] [birth year] AGE: 62 SEX: M ATTEND: Salinas Alba I [facility] AUTHOR: Dave Jones MD * ALL edits [...] (Auto) (14.0 - 32.0 %) 10.6 L [place] % (Auto) (4.8 - 9.0 %) 12.8 H Eos % (Auto) (0.3 - 3.7 %) 2.7 Baso % (Auto) (0.0 - 2.0 %) 0.4 Neut # (Auto) (2.0 - 7.6 x10 3/uL) 8.23 H Lymph # (Auto) (1.0 - 3.8 x10 3/uL) 1.22 [place] # (Auto) (0.1 - 0.8 x10 3/uL) [...] ofr cystoscopy. Home with black at 1742 RPT #:[id number] OF REPORTPRProgress wndk5665-14-50X85:41:00G.LLCY07203156-7408LEJqsyi able for patient puhvQTZBNMQCZHSGXC4701-83-23G75:42:28 [facility] 2022-10-17 13:46:00 [id number] Av8xHQBv6oTbskvpFuSwLoNVhtiWr 9fHwvyJckfdw2QVGpeNcRnd4dJR5631-96-84K68:46:00 [facility] CenterNephrology Progress NoteREPORT#:[id number] REPORT STATUS: SignedDATE:10/17/22 TIME: 1345 PATIENT: MATHEW CASTILLO UNIT #: [id number]#: [id number] [address] [birth year] AGE: 62 SEX: M ATTEND: Salinas Alba I [facility] AUTHOR: Carmen Kemp * ALL edits [...] (Auto) (14.0 - 32.0 %) 10.6 L [place] % (Auto) (4.8 - 9.0 %) 12.8 H Eos % (Auto) (0.3 - 3.7 %) 2.7 Baso % (Auto) (0.0 - 2.0 %) 0.4 Neut # (Auto) (2.0 - 7.6 x10 3/uL) 8.23 H Lymph # (Auto) (1.0 - 3.8 x10 3/uL) 1.22 [place] # (Auto) (0.1 - 0.8 x10 3/uL) [...] urine in his bladder. CT abdomen from [place] showed that the patient has a very [...] urine in his bladder. CT abdomen from [place] showed that the patient has a very [...] above A/P at 1759 at 2234 RPT #:[id number] OF REPORTPRProgress kwau1776-83-88A32:46:00G.SJII65280217-9051IAGgufa able for patient mrepPYIPRGDXADZCJM5904-46-16H70:00:00 [facility] 2022-10-16 15:13:00 [id number] iMnwtWPssXZxd7G11wJd2TIL5yu9S li6HYBdcKWP9tYkPS8W5wlu4Tc88062-36-72H47:13:81293 2-[address] [place] [address] PATIENT NAME: MATHEW CASTILLO ADMIT DATE: 10/16/22ACCOUNT NO: [id number] ROOM NO: 6630 AGE: 62 REPORT TYPE: CONSULTATION REPORT SEX: M ADMITTING PHYSICIAN:Salinas Alba MD ATTENDING PHYSICIAN:Salinas Alba MD CONSULTATION DATE:10/16/2022 REASON FOR CONSULTATION: Hydronephrosis, urinary retention. HISTORY OF PRESENT ILLNESS: This is a 62-year-old male with a history ofschizophrenia who was sent in from [place]. He had reportedly almost 3liters of urine [...] pressure 134/86, pulse 94, respiratory rate 18, cpmaaxtasju97.1, 93% on room air.GENERAL: Alert. No acute distress, nontoxic.HEENT: Normocephalic, atraumatic. Nontoxic.NECK: Supple.HEART: Regular rate and rhythm.LUNGS: Respirations unlabored.ABDOMEN: Soft, nontender, nondistended. No CVA tenderness.EXTREMITIES: Moving all extremities well. LABORATORY DATA: White blood cell count 11, hemoglobin 10.9, platelets 207.Creatinine was 2.1 on admission, now down to 1.4. ASSESSMENT AND PLAN: We reviewed the CT scan of the abdomen and pelvis from [facility]. The patient has a very large distended [...] Dictated: 10/16/2022 15:13:22Date Transcribed: 10/16/2022 16:06:29TESSIE/Yulisa #: [id number] ID: [id number] and Edited by Dave Jones MD On 11/12/22 1:37:06 PM at 0138 PATIENT NAME: MATHEW CASTILLO :06:00G.ND [id number] for patient zlwjOWKSBKOSYTWGUE5341-71-07Y27:40:23 [facility] 2022-10-16 12:39:00 [id number] VXnVQ/SuRpq0NOpx4agVDyMTqj+PL JA5EiviJOvyKzLGQw6f9fX5QoMC5200-74-29L89:39:00 [facility] ([facility])Nephrology Consultation NoteREPORT#:[id number] REPORT STATUS: SignedDATE:10/16/22 TIME: 1239 PATIENT: MATHEW CASTILLO UNIT #: [id number]#: [id number] [address] AGE: 62 SEX: M ATTEND: Salinas Alba I [facility] AUTHOR: Carmen Kemp * ALL edits [...] Friday who took him to ER in [place]. He had CT abdomen which revealed b/l hydronephrosis and concern for possible ureteral rupture. [facility]. Initial [facility] at [facility] [...] 0416 DC 10/16 (ROCEPHIN 1000MG IV 10/16 0418 0503 VIAL) Sodium Chloride 10 ML (SODIUM [...] (Auto) (14.0 - 32.0 %) 3.8 L [place] % (Auto) (4.8 - 9.0 %) 13.6 H Eos % (Auto) (0.3 - 3.7 %) 0.4 Baso % (Auto) (0.0 - 2.0 %) 0.2 Neut # (Auto) (2.0 - 7.6 x10 3/uL) 8.96 H Lymph # (Auto) (1.0 - 3.8 x10 3/uL) 0.42 L [place] # (Auto) (0.1 - 0.8 x10 3/uL) [...] urine in his bladder. CT abdomen from [place] showed that the patient has a very [...] urine in his bladder. CT abdomen from [place] showed that the patient has a very [...] patient's nurse, and . Toby Koehler 10/16/22 1219:Attestations Physician AttestationReviewed findings plan:Patient examined 62 years old male with PMH significant for schizophrenia, HTN, BPH, current everyday smoker. The patient states that on Friday last week, he noted abdominal distention, associated w/ pain and was unable to urinate. He wasseen by his daughter Friday who took him to ER in [place]. He had CT abdomen which revealed b/l hydronephrosis and concern for possible ureteral rupture. He was transferred to [facility] for Urology evaluation. Initial VSat the ER [...] above A/P at 1902 at 2211 RPT #:[id number] OF REPORTKVNaizwknmespi2015-57-27A55:39:00G.PDOC2 6216717-8808SDDpwghldvl for patient ucihIVVGPBLQMBEUIK3731-44-43L74:02:18 [facility] 2022-10-16 11:15:00 [id number]+uyISa nluAb/BZHbfOwdhLzhQ7yI5XSwVgn bJr0qUVJodyXtRP3dJC72ZO8cmO8500-83-66Y98:15:00 [facility] ([facility])History Physical - AdultREPORT#:[id number] REPORT STATUS: SignedDATE:10/16/22 TIME: 1115 PATIENT: ANNAMATHEW SINCERE UNIT #: [id number]#: [id number] ROOM/BED: 6630-1DOB: [birth year] AGE: 62 SEX: M ATTEND: Salinas Alba I [facility] AUTHOR: Sofia Cheng NP * ALL edits or amendments must be made on the electronic/computer document * History of Present Illness HPIChief complaint:Abdominal distention, hydronephrosisHPI:62-year-old male with last medical history of, BPH, transferred from [place] for urology evaluation and treatment secondary to [...] Flow FiO2 Mean Ox Delivery Rate 10/16 904 37.1 94 18 134/86 102 93 Room [...] range of motion, normal sensory, normal motor functionNeuro/LITIGATION EXAMINER: alert, oriented X 3Skin: dry, intact, no [...] (Auto) (14.0 - 32.0 %) 3.8 L [place] % (Auto) (4.8 - 9.0 %) 13.6 H Eos % (Auto) (0.3 - 3.7 %) 0.4 Baso % (Auto) (0.0 - 2.0 %) 0.2 Neut # (Auto) (2.0 - 7.6 x10 3/uL) 8.96 H Lymph # (Auto) (1.0 - 3.8 x10 3/uL) 0.42 L [place] # (Auto) (0.1 - 0.8 x10 3/uL) [...] last medical history of, BPH, transferred from [place] for urology evaluation and treatment secondary to [...] on patient's clinical course at 0232 at 9718 RPT #:[id number] OF REPORTHPHistory and physical urymmsgaaet1435-51-26Q76:15:00G.WEWV11024476-3328 AVAvailable for patient rraiGAFXCXUNXMNXWF5081-75-65V56:32:18 [facility] 2022-10-16 03:54:00 [id number]+AgTxa y2r/dkvb4EQuQ2YJOKAJ5ohr3ljpu d1kgtwOn3W3hmSyGd+fEnJmAk6A8819-95-09G73:54:00 [facility] ([facility])EMERGENCY PROVIDER REPORTREPORT#:[id number] REPORT STATUS: SignedDATE:10/16/22 TIME: 035 PATIENT: MATHEW CASTILLO UNIT #: [id number]#: [id number] [address] 62 SEX: M PCP PHYS: No Primary or Family PhysicianSERVICE AUTHOR: Alecia Iverson MD * ALL edits or amendments must be made on the electronic/computer document * HPI-General Illness GeneralInitial Greet Date/Time 10/16/22306 PresentationChief Complaint __ (ruptured ureter) Free Text [...] (Auto) (14.0 - 32.0 %) 3.8 L [place] % (Auto) (4.8 - 9.0 %) 13.6 H Eos % (Auto) (0.3 - 3.7 %) 0.4 Baso % (Auto) (0.0 - 2.0 %) 0.2 Neut # (Auto) (2.0 - 7.6 x10 3/uL) 8.96 H Lymph # (Auto) (1.0 - 3.8 x10 3/uL) 0.42 L [place] # (Auto) (0.1 - 0.8 x10 3/uL) [...] 10/16 Sodium Chloride 10 ML IV 10/16 3614 4404 ConsultationConsultation Referral/Consult Name Dave Jones MD Solutions Manager Called Urology Solutions Manager Discussed with obiee consultant Requested Call Time 0345 Requested Call [...] DecisionHospitalize Hosp Physician Name Salinas Alba MD Hosp [...] chart for administrative purposes only. at 1907RPT #:[id number] OF REPORTEDEmerchristus dubuis hospitalcy department fgritw9928-63-86E89:54:00G.VOEE36661158-3292NNXsc ilable for patient zlenGXWJGCHMYETJEW4607-30-87W58:07:49 [facility]
--- NOTE | 2023-05-08 10:45 | EDPHYS ---
Physician Documentation [facility] Name: Mathew Porter Age: 62 yrs Sex: Male : 1960 Arrival Date: 05/08/2023 Time: 10:31 Bed 16 Private MD: ED Physician Wilbert Barragan HPI: 05/08 10:41 This 62 yrs old Male presents to ER via Unassigned with complaints of Problem With ms3 Urinary Catheter. 10:41 62-year-old male with no past medical history presents emergency department for Johns ms3 catheter problems. Patient states his catheter became twisted this morning and cracked. Patient states that is been 2 months since the catheter was changed. Patient denies fevers, chills, nausea, vomiting, abdominal pain, back pain. Historical: - Allergies: 10:45 NKA; ll1 - PMHx: 10:45 Schizophrenia; ll1 - PSHx: 10:45 Urolift (December); ll1 - Immunization history:: Adult Immunizations up to date. - Social history:: Smoking status: Patient denies any tobacco usage or history of. ROS: 10:41 Constitutional: Negative for fever, and chills. Neck: Negative for injury, pain, and ms3 swelling, Cardiovascular: Negative for chest pain, and palpitations. Respiratory: Negative for shortness of breath, cough, wheezing, and pleuritic chest pain, Abdomen/GI: Negative for abdominal pain, nausea, vomiting, diarrhea, and constipation, 10:41 : Positive for Johns catheter problem, Exam: 10:41 Constitutional: This is a well developed, well nourished patient who is awake, alert, ms3 and in no acute distress. Head/Face: Normocephalic, atraumatic. Chest/axilla: Normal chest wall appearance and motion. Nontender with no deformity. Cardiovascular: Regular rate and rhythm with a normal S1 and S2. No gallops, murmurs, or rubs. Normal PMI, no JVD. No pulse deficits. 10:41 : a johns is noted, to gravity drainage, 10:41 Abdomen/GI: Soft, non-tender, with normal bowel sounds. No distension or tympany. No ms3 guarding or rebound. No evidence of tenderness throughout. Skin: Warm, dry with normal turgor. Normal color with no rashes, no lesions, and no evidence of cellulitis. MS/ Extremity: Pulses equal, no cyanosis. Neurovascular intact. Full, normal range of motion. Vital Signs: 10:49 BP 182 / 102; Pulse 88; Resp 18; Temp 97.7; Pulse Ox 100% ; Weight 70.76 kg; Height 5 ll1 ft. 9 in. ; Pain 0/10; 11:10 BP 144 / 98; Pulse 84; Resp 16; Pulse Ox 100% on R/A; mb9 10:49 Body Mass Index 23.04 (70.76 kg, 175.26 cm) ll1 10:49 Pain Scale: Adult ll1 MDM: 10:41 Differential diagnosis: Johns catheter problem. Data reviewed: vital signs, nurses ms3 notes, and as a result, I will discharge patient. Care significantly affected by the following Social Determinants of Health: Poor access to healthcare and/or lack of insurance. Counseling: I had a detailed discussion with the patient and/or guardian regarding the historical points, exam findings, and any diagnostic results supporting the discharge/admit diagnosis, the need for outpatient follow up, to return to the emergency department if symptoms worsen or persist or if there are any questions or concerns that arise at home. Special discussion: I discussed with the patient/guardian in detail that at this point there is no indication for admission to the hospital. It is understood, however, that if the symptoms persist or worsen the patient needs to return immediately for re-evaluation. ED course: Discussed Johns catheter replacement with patient. Johns catheter to be replaced. Patient understands agrees with plan. Patient to follow-up with his urologist in 2 to 3 days. All questions were answered. Return precautions discussed include fevers, chills, abdominal pain, back pain, worsening symptoms, or any other concerns.. 10:44 Patient medically screened. ms3 05/08 10:41 Order name: Johns Leg Bag; Complete Time: 10:56 ms3 05/08 10:41 Order name: Johns; Complete Time: 10:56 ms3 Administered Medications: No medications were administered Disposition Summary: 05/08/23 10:44 Discharge Ordered Notes: Location: Home ms3 Condition: Stable ms3 Diagnosis - Johns Catheter problem ms3 Followup: ms3 - With: Private Physician - When: 2 - 3 days - Reason: Recheck today's complaints Discharge Instructions: - Discharge Summary Sheet ms3 - Indwelling Urinary Catheter Insertion at Home, Male ms3 Forms: - Medication Reconciliation Form ms3 - Thank You Letter ms3 - Antibiotic Education ms3 - Prescription Opioid Use ms3 - Patient Portal Instructions ms3 - Leadership Thank You Letter ms3 Signatures: Brandt Stout, RN RN ll1 Wilbert Barragan DO DO ms3
--- NOTE | 2023-05-08 10:45 | ER ---
Nurse's Notes [facility] Name: Mathew Porter Age: 62 yrs Sex: Male : 1960 Arrival Date: 05/08/2023 Time: 10:31 Bed 16 Private MD: Diagnosis: Johns Catheter problem Presentation: 05/08 10:45 Chief complaint: Patient states: Johns cracked and is leaking. Has had johns for 2 ll1 months. Coronavirus screen: Client denies travel out of the [place] in the last 14 days. At this time, the client does not indicate any symptoms associated with coronavirus-19. Ebola Screen: Patient denies travel to an Ebola-affected area in the 21 days before illness onset. Initial Sepsis Screen: Does the patient meet any 2 criteria? No. Patient's initial sepsis screen is negative. Does the patient have a suspected source of infection? Yes: Dysuria/Frequency/Urgency/UTI. Risk Assessment: Do you want to hurt yourself or someone else? Patient reports no desire to harm self or others. Onset of symptoms is unknown. 10:45 Method Of Arrival: Ambulatory ll1 10:45 Acuity: JAMILA 4 ll1 Historical: - Allergies: 10:45 NKA; ll1 - PMHx: 10:45 Schizophrenia; ll1 - PSHx: 10:45 Urolift (December); ll1 - Immunization history:: Adult Immunizations up to date. - Social history:: Smoking status: Patient denies any tobacco usage or history of. Screenin:56 [facility] ED Fall Risk Assessment (Adult) History of falling in the last 3 months, mb9 including since admission No falls in past 3 months (0 pts) Confusion or Disorientation No (0 pts) Intoxicated or Sedated No (0 pts) Impaired Gait No (0 pts) Mobility Assist Device Used No (0 pt) Altered Elimination No (0 pt) Score/Fall Risk Level 0 - 2 = Low Risk Oriented to surroundings, Maintained a safe environment, Educated pt \T\ family on fall prevention, incl call for assistance when getting out of bed. Abuse screen: Denies threats or abuse. Nutritional screening: No deficits noted. Tuberculosis screening: No symptoms or risk factors identified. Assessment: 10:55 General: Appears in no apparent distress. Behavior is calm, cooperative. Pain: Denies mb9 pain. Neuro: Devine Agitation-Sedation Scale (RASS): 0 - Alert and Calm Level of Consciousness is awake, alert, obeys commands, Oriented to person, place, time, situation, Appropriate for age. Cardiovascular: Patient's skin is warm and dry. Respiratory: Airway is patent Respiratory effort is even, unlabored, Respiratory pattern is regular, symmetrical. GI: Abdomen is flat, non-distended. : Johns in place. EENT: No signs and/or symptoms were reported regarding the EENT system. Derm: Skin is pink, warm \T\ dry. Musculoskeletal: Range of motion: intact in all extremities. 10:55 Reassessment: Discharge pending johns catheter insertion. mb9 Vital Signs: 10:49 BP 182 / 102; Pulse 88; Resp 18; Temp 97.7; Pulse Ox 100% ; Weight 70.76 kg; Height 5 ll1 ft. 9 in. ; Pain 0/10; 11:10 BP 144 / 98; Pulse 84; Resp 16; Pulse Ox 100% on R/A; mb9 10:49 Body Mass Index 23.04 (70.76 kg, 175.26 cm) ll1 10:49 Pain Scale: Adult ll1 ED Course: 10:31 Patient arrived in ED. ra3 10:36 Wilbert Barragan DO is Attending Physician. ms3 10:43 Rylee Franco, DEENA is Primary Nurse. mb9 10:45 Arm band placed on Patient placed in an exam room, on a stretcher. ll1 10:46 Triage completed. ll1 10:56 Placed in gown. Bed in low position. Call light in reach. Side rails up X 1. Client mb9 placed on continuous cardiac and pulse oximetry monitoring. NIBP monitoring applied. 10:56 No provider procedures requiring assistance completed. Patient did not have IV access mb9 during this emergency room visit. 11:10 Johns cath inserted, using sterile technique, 16 Fr., by tn, balloon inflated, to mb9 gravity drainage, returned clear yellow urine. Patient tolerated well. Administered Medications: No medications were administered Medication: 10:56 VIS not applicable for this client. mb9 Outcome: 10:44 Discharge ordered by . ms3 11:50 Discharged to home ambulatory, mb9 11:50 Condition: stable 11:50 Discharge instructions given to patient, Instructed on discharge instructions, follow up and referral plans. Demonstrated understanding of instructions, follow-up care, 11:50 Patient left the ED. mb9 Signatures: Brandt Stout RN RN ll1 Wilbert Barragan DO DO ms3 Rylee Franco RN RN mb9 Katie Keating ra3 Corrections: (The following items were deleted from the chart) 10:50 10:49 Pulse 88bpm; Resp 18bpm; Pulse Ox 100%; Temp 97.7F; 70.76 kg; Height 5 ft. 9 in.; ll1 BMI: 23.0; Pain 0/10, Adult; ll1
[2023-05-08 12:11] VITALS: BP 144/98; TEMP 97.7; O2SAT 100
== END ==
LOC: ER 10:31
PROC: 0T2BX0Z Change Drainage Device in Bladder, External Approach (ICD-10-PCS; principal; 2023-05-08)
DX: T83.098A Other mechanical complication of other urinary catheter, initial encounter (principal)

== ENCOUNTER → 2023-05-27 | Emergency (ER) | payer OTHER ==
--- OUTSIDE RECORDS SUMMARY | 2023-05-27 11:25 | XMS REPORT | Continuity of Care Document ---
Author Name Unknown Address [address] [facility] [place]. [address] [place] [id number] [facility] thconnect Address [address] [facility] [place] 1 [address] [place] [address] Care Team Providers Care Athletic Instructor Name Role Phone Salinas Alba I [...] s DA Active U 10-16 00:00: 00 [facility] Encounters Start Date/Time End Date/Time Encounter Type Admission Type Attending Clinicians Care Facility Care Department Encounter ID Source 2023-01-21 06:38:00 2023-01-22 20:00:00 Inpatient EM Salinas Alba [facility] MED[facility].01 [id number] [facility] 2023-01-06 15:12:00 2023-01-11 21:08:00 Inpatient EM Salinas Alba [facility] MED[facility].01 [id number] [facility] 2022-10-16 05:03:00 2022-10-26 19:41:00 Inpatient EM Salinas Alba [facility] MED[facility].01 [id number] [facility] Results Test Description Test Time Test Comments Results Resul t Comments Source - CT ABD PELVIS W/CONT 2023-01-05 8 13:00:[address] [facility] : 1960 Sex: M Name: MATHEW CASTILLO [facility] : 1960 Age/S: 62 / M [address] [place] [address] Blvd Unit #: [id number] Loc: [place] [address] Phys: Sofia Cheng ASSEMBLER FAUC[employer] Acct: [id number] Dis Date: Status: ADM IN PHONE #: [phone] Exam Date: 01/22/2023 1231 FAX #: [phone] Reason: ABD PAIN EXAMS: CPT CODE: [id number] CT ABD PELVIS W/CONT 15395 EXAM: CT abdomen and pelvis with contrast [...] 1 Signed Report (CONTINUED) Name: MATHEW CASTILLO [facility] : 1960 Age/S: 62 / M [address] [place] [address] Blvd Unit #: [id number] Loc: [place] [address] Phys: Sofia Cheng ASSEMBLER [employer]UC[employer] Acct: [id number] Dis Date: Status: ADM IN PHONE #: [phone] Exam Date: 01/22/2023 1231 FAX #: [phone] Reason: ABD PAIN EXAMS: CPT CODE: [id number] CT ABD PELVIS W/CONT 07305 (Continued) abdominal aortic aneurysm. Pelvic organs/bladder: Moderate [...] M.D. CC: Lakhwinder Guillermo MD; Sofia Cheng [employer]SEMBLER [employer]UC[employer]; Salinas Dukes MD Technologist:Rick Moran Jr, RT(R)(CT) CTDI: DLP: Trnscb Date/Time: 01/22/2023 (1300) t.SDR.BC0 Orig Print D/T: S: 01/22/2023 (3235) PAGE 2 Signed Report [id number] 07:46:00* Test Item Value Reference Range Interpretation Comme nts PHOSPHOROUS (test code = PHOS) 2.4 MG/DL 2.5-4.9 L [id number] 07:46:00* Test Item Value Reference Range Interpretation Comme nts MAGNESIUM (test code = MAG) 1.69 mg/dL 1.6-2.6 N NOTE: NEW NORMAL RANGE CBC W/AUTO [id number] 07:05:00* Test Item Value Reference Range Interpretation [...] 0.00 x10 3/uL 0.0-0.1 N BASIC METABOLIC [id number] 06:08:00* Test Item Value Reference Range Interpretation [...] CA) 8.2 mg/dL 8.0-10.5 N CBC W/AUTO [id number] 05:57:00* Test Item Value Reference Range Interpretation [...] c ode = MDIFF) NO CBC W/AUTO [id number] 08:15:00* Test Item Value Reference Range Interpretation [...] 0.00 x10 3/uL 0.0-0.1 N BASIC METABOLIC [id number] 07:28:00* Test Item Value Reference Range Interpretation [...] CA) 8.6 mg/dL 8.0-10.5 N BASIC METABOLIC [id number] 07:46:00* Test Item Value Reference Range Interpretation [...] CA) 8.7 mg/dL 8.0-10.5 N CBC W/AUTO [id number] 07:34:00* Test Item Value Reference Range Interpretation [...] 0.00 x10 3/uL 0.0-0.1 N CBC W/AUTO [id number] 08:43:00* Test Item Value Reference Range Interpretation [...] c ode = MDIFF) NO BASIC METABOLIC [id number] 07:14:00* Test Item Value Reference Range Interpretation [...] CA) 7.8 mg/dL 8.0-10.5 L CBC W/AUTO [id number] 08:58:00* Test Item Value Reference Range Interpretation [...] c ode = MDIFF) NO BASIC METABOLIC [id number] 08:27:00* Test Item Value Reference Range Interpretation [...] HGBA1C%) 5.1 %A1C 4.8-6.0 N CBC W/AUTO [id number] 08:05:00* Test Item Value Reference Range Interpretation [...] (test code = MDIFF) NO BASIC METABOLIC [id number] 07:46:00* Test Item Value Reference Range Interpretation [...] = LDL) 104.0 mg/dL 0-100 H <100 ZPEQZEE53 0-129 NEAR OPTIMAL/ABOVE [id number] [id number] HIGH>VZ=767 VERY HIGH*Guidelines provided by the National Cholesterol EducationProgram Adult Treatment Panel III [id number] 07:46:00* Test Item Value Reference Range Interpretation Comme nts PHOSPHOROUS (test code = PHOS) 3.4 MG/DL 2.5-4.9 N [id number] 07:46:00* Test Item Value Reference Range Interpretation Comme nts MAGNESIUM (test code = MAG) 1.69 mg/dL 1.6-2.6 N NOTE: NEW NORMAL RANGE TSH REFLEX TO [id number] 07:46:00* Test Item Value Reference Range Interpretation Comme nts TSH REFLEX TO FT4 (test code = TSHREFLEX) 2.37 IU/mL 0.42-5.47 N LACTIC [id number] 05:48:00* Test Item Value Reference Range Interpretation Comme nts LACTIC ACID (test code = LACT) 1.1 mmol/L 0.4-1.9 N LACTIC ACID [id number] 02:38:00* Test Item Value Reference Range Interpretation Comme nts LACTIC ACID REPEAT (test cod e = LACTR) 0.9 mmol/l 0.4-1.9 N CALLED SEVERINO @01:18 TO REMIND WE NEEDED REPEATLACTIC [id number] 22:36:00* Test Item Value Reference Range Interpretation Comme nts LACTIC ACID (test code = LACT) 2.9 mmol/L 0.4-1.9 H UA RFLX MICR CULT IF [id number] 22:35:00* Test Item Value Reference Range Interpretation [...] Less than 14 days- CT ABD PELVIS [id number] 22:24:00 [facility] HUANGName: MATHEW CASTILLO : 1960 Sex: M Name: MATHEW CASTILLO [facility] [place] [facility] : 1960 Age/S: 62 / M [address] Unit #: [id number] Loc: [place] [address] Phys: Vee Horton Acct: [id number] Dis Date: Status: [facility] ER PHONE #: [phone] Exam Date: 01/04/2023 0940 FAX #: [phone] Reason: GROSS HEMATURIA EXAMS: CPT CODE: [id number] CT ABD PELVIS W/CONT 32560 H 20 TIME OF STUDY: 01/04/2023 7:55 [...] 1 Signed Report (CONTINUED) Name: MATHEW CASTILLO [facility] : 1960 Age/S: 62 / M [address] [place] [address] Unit #: [id number] Loc: [place] [address] Phys: Vee Horton Acct: [id number] Dis Date: Status: REG ER PHONE #: [phone] Exam Date: 01/04/2023 09 FAX #: [phone] Reason: GROSS HEMATURIA EXAMS: CPT CODE: [id number] CT ABD PELVIS W /CONT 91721 (Continued) at 2224 Reported and signed by: Zia Magaña M.D. CC: Lakhwinder Guillermo MD; Vee Horton; Javier Carroll Technologist:Latoya Moeller, (R); Lesvia Humphries CTDI: DLP: Trnscb Date/Time: 01/04/2023 (2223) t.SDR.SI1 Orig Print D/T: S: 01/04/2023 (2226) PAGE 2 Signed ReportCOMPREHENSIVE METABOLIC [id number] 21:07:00* Test Item Value Reference Range Interpretation [...] ALKP) 60 IUnit/L 20-125 N CBC W/AUTO [id number] 20:38:00* Test Item Value Reference Range Interpretation [...] (test code = MDIFF) NO BASIC METABOLIC [id number] 08:30:00* Test Item Value Reference Range Interpretation [...] reported result: 4.9 mg/dLEdited by: KRISTEN on 10/31/22:950028 0829: CA previously reported as: 4.9 *L mg/dL Critical [place] [address]/16/22 Nurse read back result and tech confirmed it's correct? Y GLUCOSE [id number] 17:27:00* Test Item Value Reference Range Interpretation Comme nts GLUCOSE BEDSIDE (test code = GLUBED) 109 MG/DL 70-110 N Performed by teto tse at [facility] GLUCOSE [id number] 12:34:00* Test Item Value Reference Range Interpretation Comme nts GLUCOSE BEDSIDE (test code = GLUBED) 95 MG/DL 70-110 N Performed by cer tified tapper operator at [facility] GLUCOSE [id number] 08:49:00* Test Item Value Reference Range Interpretation Comme nts GLUCOSE BEDSIDE (test code = GLUBED) 117 MG/DL 70-110 H Performed by cer tified tapper operator at [facility] BASIC METABOLIC [id number] 07:57:00* Test Item Value Reference Range Interpretation [...] = CA) 8.1 mg/dL 8.0-10.5 N GLUCOSE [id number] 17:07:00* Test Item Value Reference Range Interpretation Comme nts GLUCOSE BEDSIDE (test code = GLUBED) 127 MG/DL 70-110 H Performed by cer tified tapper operator at [facility] GLUCOSE [id number] 12:26:00* Test Item Value Reference Range Interpretation Comme nts GLUCOSE BEDSIDE (test code = GLUBED) 123 MG/DL 70-110 H Performed by cer tified tapper operator at [facility] GLUCOSE [id number] 07:59:00* Test Item Value Reference Range Interpretation Comme nts GLUCOSE BEDSIDE (test code = GLUBED) 92 MG/DL 70-110 N Performed by cer violeta tapper operator at [facility] BASIC METABOLIC [id number] 07:38:00* Test Item Value Reference Range Interpretation [...] CA) 7.8 mg/dL 8.0-10.5 L CBC W/AUTO [id number] 07:27:00* Test Item Value Reference Range Interpretation [...] REQUIRED (test code = MDIFF) NO GLUCOSE [id number] 21:25:00* Test Item Value Reference Range Interpretation Comme nts GLUCOSE BEDSIDE (test code = GLUBED) 154 MG/DL 70-110 H Performed by cer tified tapper operator at [facility] GLUCOSE [id number] 17:43:00* Test Item Value Reference Range Interpretation Comme nts GLUCOSE BEDSIDE (test code = GLUBED) 73 MG/DL 70-110 N Performed by cer tified tapper operator at [facility] GLUCOSE [id number] 10:08:00* Test Item Value Reference Range Interpretation Comme nts GLUCOSE BEDSIDE (test code = GLUBED) 87 MG/DL 70-110 N Performed by cer tified tapper operator at [facility] GLUCOSE [id number] 20:12:00* Test Item Value Reference Range Interpretation Comme nts GLUCOSE BEDSIDE (test code = GLUBED) 139 MG/DL 70-110 H Performed by cer tified tapper operator at [facility] GLUCOSE [id number] 17:32:00* Test Item Value Reference Range Interpretation Comme nts GLUCOSE BEDSIDE (test code = GLUBED) 79 MG/DL 70-110 N Performed by cer tified tapper operator at [facility] GLUCOSE [id number] 12:14:00* Test Item Value Reference Range Interpretation Comme nts GLUCOSE BEDSIDE (test code = GLUBED) 98 MG/DL 70-110 N Performed by cer tified tapper operator at [facility] GLUCOSE [id number] 08:36:00* Test Item Value Reference Range Interpretation Comme nts GLUCOSE BEDSIDE (test code = GLUBED) 92 MG/DL 70-110 N Performed by cer tified tapper operator at [facility] BASIC METABOLIC [id number] 07:50:00* Test Item Value Reference Range Interpretation [...] code = CA) 7.6 mg/dL 8.0-10.5 L [id number] 07:50:00* Test Item Value Reference Range Interpretation Comme nts MAGNESIUM (test code = MAG) 1.53 mg/dL 1.80-2.40 L - CTA CHEST FOR [id number] 00:00:[address] [facility] : 1960 Sex: M Name: MATHEW CASTILLO [facility] : 1960 Age/S: 62 / M [address] [place] [address] Blvd Unit #: [id number] Loc: [place] [address] Phys: Sofia Cheng ASSEMBLER [employer]UC[employer] Acct: [id number] Dis Date:Status: ADM IN PHONE #: [phone] Exam Date: 10/23/2022 172 FAX #: [phone] Reason: ELEVATED D DIMER EXAMS: CPT CODE: [id number] [place] [address] PROCEDURE INFORMATION: Exam: CTA ChestWith Contrast Exam [...] 1 Signed Report (CONTINUED) Name: MATHEW CASTILLO [facility] : 1960 Age/S: 62 / M [address] [place] [address] Unit #: [id number] Loc: [place] [id number] Phys: Sofia Cheng ASSEMBLER [employer]UC[employer] Acct: [id number] Dis Date: Status: ADM IN PHONE #: [phone] Exam Date: 10/23/2022 1727 FAX #: [phone] Reason: ELEVATED D DIMER EXAMS: CPT CODE: [id number] [place] [address] (Continued) flexure compatible with colitis incompletely evaluated. [...] by: Hayden Rg M.D. CC: Sofia Cheng ASSEMBLER [employer]UC[employer]; Salinas Dukes MD Technologist:Latoya Pérez, RT(R)(CT); . CTDI: DLP: Trnscb Date/Time: 10/23/2022 (2012) tHILARIOR.JT18 Orig Print D/T: S: 10/23/2022 (2012) PAGE 2 Signed ReportGLUCOSE [id number] 20:23:00* Test Item Value Reference Range Interpretation Comme nts GLUCOSE BEDSIDE (test code = GLUBED) 123 MG/DL 70-110 H Performed by cer tified tapper operator at [facility] GLUCOSE [id number] 17:34:00* Test Item Value Reference Range Interpretation Comme nts GLUCOSE BEDSIDE (test code = GLUBED) 132 MG/DL 70-110 H Performed by [facility] tified tapper operator at [facility] GLUCOSE [id number] 11:57:00* Test Item Value Reference Range Interpretation Comme nts GLUCOSE BEDSIDE (test code = GLUBED) 118 MG/DL 70-110 H Performed by [employer] tified tapper operator at [facility] GLUCOSE [id number] 08:22:00* Test Item Value Reference Range Interpretation Comme nts GLUCOSE BEDSIDE (test code = GLUBED) 100 MG/DL 70-110 N Performed by [facility] [employer] tapper operator at [facility] BASIC METABOLIC [id number] 08:05:00* Test Item Value Reference Range Interpretation [...] code = CA) 7.8 mg/dL 8.0-10.5 L [id number] 08:05:00* Test Item Value Reference Range Interpretation Comme nts MAGNESIUM (test code = MAG) 1.72 mg/dL 1.80-2.40 L GLUCOSE [id number] 21:10:00* Test Item Value Reference Range Interpretation Comme nts GLUCOSE BEDSIDE (test code = GLUBED) 148 MG/DL 70-110 H Performed by cer tified tapper operator at [facility] GLUCOSE [id number] 17:29:00* Test Item Value Reference Range Interpretation Comme nts GLUCOSE BEDSIDE (test code = GLUBED) 102 MG/DL 70-110 N Performed by cer tified tapper operator at [facility] GLUCOSE [id number] 11:54:00* Test Item Value Reference Range Interpretation Comme nts GLUCOSE BEDSIDE (test code = GLUBED) 104 MG/DL 70-110 N Performed by [employer] tapper operator at [facility] CBC W/MANUAL [id number] 10:35:00* Test Item Value Reference Range Interpretation [...] (test code = PLTMORPH) LARGE PLATELETS GLUCOSE [id number] 07:57:00* Test Item Value Reference Range Interpretation Comme [facility] GLUCOSE BEDSIDE (test code = GLUBED) 95 MG/DL 70-110 N Performed by cer tified tapper operator at [facility] C REACTIVE [id number] 07:48:00* Test Item Value Reference Range Interpretation Comme [facility] C REACTIVE PROTEIN (test cod e = CRP) 36.0 mg/L <10.0 H BASIC METABOLIC [id number] 07:40:00* Test Item Value Reference Range Interpretation Comme [facility] SODIUM (test code = NA) 140 [...] code = CA) 7.3 mg/dL 8.0-10.5 L [id number] 07:40:00* Test Item Value Reference Range Interpretation Comme nts MAGNESIUM (test code = MAG) 1.50 mg/dL 1.80-2.40 L [id number] 07:04:00* Test Item Value Reference Range Interpretation Comme nts D-DIMER (test code = DDIMER) 5949 ng/mlFEU See_Comment HH Critical result called to Brigido RUIZLAB.JJ1 at 0701 10/21/22Nurse read back result and tech confirmed it's correct? YESTHROMBOSIS AND/OR PULMONARY EMBOLISM AND THE CLINICAL CUT- OFF VALUE FOR EXCLUSION (500 ng/mL FEU) OF THESE CONDITIONSIS VALIDATED BY THE WAREHOUSE EXAMINER OF THE METHOD. A NEGATIVE D-DIMER RESULT [...] this result as normal/abnormal. - DUP VEIN [id number] 00:00:00 [facility] HUANGName: MATHEW CASTILLO : 1960 Sex: M Name: MATHEW CASTILLO [facility] Barrera Huang : 1960 Age/S: 62 / M [address] [place] [address] Bl Unit #: [id number] Loc: [place] [address] Phys: Skip Jaffe MD Acct: [id number] Dis Date: Status: ADM IN PHONE #: [phone] Exam Date: 10/21/2022820 FAX #: [phone] Reason: R/o DVT EXAMS: CPT CODE: [id number] DUP VEIN ASAEL 31692 PROCEDURE INFORMATION: Exam: US Duplex Lower ExtremityVeins, [...] MD; Salinas Dukes MD Technologist: Yesica Baker [facility] Date/Time: 10/21/2022 (911) t.SDR.AB61 Orig Print D/T: S: 10/21/2022 (911) Probe: PAGE 1 Signed Report GLUCOSE [id number] 20:40:00* Test Item Value Reference Range Interpretation Comme [facility] GLUCOSE BEDSIDE (test code = GLUBED) 148 MG/DL 70-110 H Performed by cer tified tapper operator at [facility] GLUCOSE [id number] 16:46:00* Test Item Value Reference Range Interpretation Comme [facility] GLUCOSE BEDSIDE (test code = GLUBED) 118 MG/DL 70-110 H Performed by cer tified tapper operator at [facility] GLUCOSE [id number] 16:46:00* Test Item Value Reference Range Interpretation Comme [facility] GLUCOSE BEDSIDE (test code = GLUBED) 122 MG/DL 70-110 H Performed by cer tified tapper operator at [facility] TROP-I HIGH [id number] 15:04:00* Test Item Value Reference Range Interpretation Comme [facility] TROP-I HIGH SENSITIVITY (test code = [...] URL. These results were obtained using [employer] TnIHreagent. Results from different methodologies should not becompared to one another as quantitative results and URLs mayvary by method. BASIC METABOLIC [id number] 15:04:00* Test Item Value Reference Range Interpretation [...] CA) 7.1 mg/dL 8.0-10.5 L TROP-I HIGH [id number] 10:07:00* Test Item Value Reference Range Interpretation [...] URL. These results were obtained using [employer] IM TnIHreagent. Results from different methodologies should not becompared to one another as quantitative results and URLs mayvary by method. CBC W/AUTO [id number] 09:54:00* Test Item Value Reference Range Interpretation [...] (test code = MDIFF) NO TROP-I HIGH [id number] 09:24:00* Test Item Value Reference Range Interpretation [...] URL. These results were obtained using [employer] Digly IM TnIHreagent. Results from different methodologies should not becompared to one another as quantitative results and URLs mayvary by method. GLUCOSE [id number] 08:49:00* Test Item Value Reference Range Interpretation Comme nts GLUCOSE BEDSIDE (test code = GLUBED) 102 MG/DL 70-110 N Performed by cer violeta tapper operator at [facility] COMPREHENSIVE METABOLIC [id number] 02:08:00* Test Item Value Reference Range Interpretation [...] code = ALKP) 47 IUnit/L 20-125 N [id number] 02:08:00* Test Item Value Reference Range Interpretation [facility] LIPASE (test code = LIP) 57 U/L 13-57 N PROTHROMBIN [id number] 02:05:00* Test Item Value Reference Range Interpretation Comme [facility] PROTHROMBIN TIME PATIENT (test code = [...] Infarction (to prevent recurrent infarct). THROMBOPLASTIN TIME [id number] 02:05:00* Test Item Value Reference Range Interpretation [facility] THROMBOPLASTIN TIME PARTIAL (test code = PTT) 26.1 Seconds 25.0-39.5 N Therapeutic Rang e: 50.4 - 88.3 Seconds Effective 07/21/2018 LACTIC [id number] 01:59:00* Test Item Value Reference Range Interpretation [facility] LACTIC ACID (test code = LACT) 1.1 mmol/L 0.4-1.9 N CBC W/AUTO [id number] 01:51:00* Test Item Value Reference Range Interpretation [facility] WHITE BLOOD CELL (test code = [...] = MDIFF) NO - XR CHEST 1 [id number] 00:00:[address] : 1960 Sex: M FAX: Sofia Cheng NP [phone] Gray: St: ADM FAX: Peggy Fernanda DukesSalinas Osman [phone] [facility] [place] [facility] 1960 Age/S: 62/M [address] [place] [address] Unit #: [id number] Loc:G.6630 [place] [address] Phys: Sofia Cheng NP Acct: [id number] Dis Date: Status: ADM IN PHONE #: [phone] Exam Date: 10/20/20227 FAX #: [phone] Reason: Sepsis EXAMS: CPT CODE: [id number] XR CHEST 1 V 86209 PROCEDURE INFORMATION: Exam: XR Chest Exam date [...] by: Reinaldo Jacobs M.D. CC: Sofia Cheng ASSEMBLER [employer]UC[employer]; Salinas Dukes MD Technologist: RT Nadeem(R) Trnscrd Date/Time/By: 10/20/2022 (213) : By: [id number] Orig Print D/T: S: 10/20/2022 (5) PAGE 1 Signed ReportGLUCOSE [id number] 21:00:00* Test Item Value Reference Range Interpretation Comme nts GLUCOSE BEDSIDE (test code = GLUBED) 135 MG/DL 70-110 H Performed by cer violeta tapper operator at [facility] URINALYSIS [id number] 20:03:00* Test Item Value Reference Range Interpretation [...] MUCU) 1+ /LPF NONE SEEN UR SODIUM [id number] 20:03:00* Test Item Value Reference Range Interpretation Comme nts UR SODIUM RANDOM (test code = ALPHONSE) 102 MEQ/L The Reference Ra nge and Method Performance specificationshave not been established for this fluid. The test resultshould be correlated into the clinical context forinterpretation. UR PROTEIN [id number] 20:03:00* Test Item Value Reference Range Interpretation Comme nts UR PROTEIN RANDOM (test code = PROTU) 79 mg/dL UR CREATININE [id number] 20:03:00* Test Item Value Reference Range Interpretation Comme nts UR CREATININE RANDOM (test code = CREATU) 111.9 mg/dL The Reference Ra nge and Method Performance specificationshave not been established for this fluid. The test resultshould be correlated into the clinical context forinterpretation. UR OSMOLALITY [id number] 20:03:00* Test Item Value Reference Range Interpretation Comme nts UR OSMOLALITY RANDOM (test c ode = OSMOU) 575 MOS/KG 300-1000 UR OSMOLALITY [id number] 20:02:00* Test Item Value Reference Range Interpretation Comme nts UR OSMOLALITY RANDOM (test c ode = OSMOU) 575 MOS/KG 300-1000 N GLUCOSE [id number] 17:18:00* Test Item Value Reference Range Interpretation Comme nts GLUCOSE BEDSIDE (test code = GLUBED) 122 MG/DL 70-110 H Performed by cer tified tapper operator at [facility] GLUCOSE [id number] 12:48:00* Test Item Value Reference Range Interpretation Comme nts GLUCOSE BEDSIDE (test code = GLUBED) 109 MG/DL 70-110 N Performed by cer tified tapper operator at [facility] GLUCOSE [id number] 07:53:00* Test Item Value Reference Range Interpretation Comme nts GLUCOSE BEDSIDE (test code = GLUBED) 96 MG/DL 70-110 N Performed by cer tified tapper operator at [facility] BASIC METABOLIC [id number] 07:51:00* Test Item Value Reference Range Interpretation [...] code = CA) 7.5 mg/dL 8.0-10.5 L [id number] 07:51:00* Test Item Value Reference Range Interpretation Comme nts MAGNESIUM (test code = MAG) 1.65 mg/dL 1.80-2.40 L CBC W/AUTO [id number] 07:07:00* Test Item Value Reference Range Interpretation [...] (test c ode = MDIFF) NO GLUCOSE [id number] 20:44:00* Test Item Value Reference Range Interpretation Comme nts GLUCOSE BEDSIDE (test code = GLUBED) 116 MG/DL 70-110 H Performed by cer tified tapper operator at [facility] GLUCOSE [id number] 18:07:00* Test Item Value Reference Range Interpretation Comme nts GLUCOSE BEDSIDE (test code = GLUBED) 98 MG/DL 70-110 N Performed by cer tified tapper operator at [facility] GLUCOSE [id number] 12:23:00* Test Item Value Reference Range Interpretation Comme nts GLUCOSE BEDSIDE (test code = GLUBED) 135 MG/DL 70-110 H Performed by cer tified tapper operator at [facility] GLUCOSE [id number] 11:22:00* Test Item Value Reference Range Interpretation Comme nts GLUCOSE BEDSIDE (test code = GLUBED) 104 MG/DL 70-110 N Performed by cer tified tapper operator at [facility] BASIC METABOLIC [id number] 08:12:00* Test Item Value Reference Range Interpretation [...] code = CA) 7.4 mg/dL 8.0-10.5 L [id number] 08:12:00* Test Item Value Reference Range Interpretation Comme nts MAGNESIUM (test code = MAG) 1.48 mg/dL 1.80-2.40 L CBC W/AUTO [id number] 08:09:00* Test Item Value Reference Range Interpretation [...] (test c ode = MDIFF) NO GLUCOSE [id number] 05:56:00* Test Item Value Reference Range Interpretation Comme nts GLUCOSE BEDSIDE (test code = GLUBED) 104 MG/DL 70-110 N Performed by cer tified tapper operator at [facility] GLUCOSE KLTTJNC2387-61-22 03:31:00* Test Item Value Reference Range Interpretation Comme nts GLUCOSE BEDSIDE (test code = GLUBED) 129 MG/DL 70-110 H Performed by cer tified tapper operator at [facility] GLUCOSE GJENGPZ3738-91-06 12:50:00* Test Item Value Reference Range Interpretation Comme nts GLUCOSE BEDSIDE (test code = GLUBED) 177 MG/DL 70-110 H Performed by cer tified tapper operator at [facility] CBC W/AUTO HZLL0545-29-43 10:14:00* Test Item Value Reference Range Interpretation [...] 0.00 x10 3/uL 0.0-0.1 N VITAMIN D 15-PJZEDIO8434-40-13 08:19:00* Test Item Value Reference Range Interpretation Comme nts VITAMIN D 25-HYDROXY (test c ode = VITD25) 25.5 ng/mL 30-100 L Indication for Test: PTH DisorderCOMPREHENSIVE METABOLIC JETJK3790-66-22 08:14:00* Test Item Value Reference Range Interpretation [...] code = ALKP) 62 IUnit/L 20-125 N SPCFTQCLBAN0817-53-60 08:14:00* Test Item Value Reference Range Interpretation Comme nts PHOSPHOROUS (test code = PHOS) 2.6 MG/DL 2.5-4.9 N UAJOTWJMJ8910-81-89 08:14:00* Test Item Value Reference Range Interpretation Comme nts MAGNESIUM (test code = MAG) 1.50 mg/dL 1.80-2.40 L GLUCOSE YTADGFF3370-24-32 07:40:00* Test Item Value Reference Range Interpretation Comme nts GLUCOSE BEDSIDE (test code = GLUBED) 105 MG/DL 70-110 N Performed by cer tified tapper operator at [facility] GLUCOSE KBUHOGQ0733-31-23 17:26:00* Test Item Value Reference Range Interpretation Comme [facility] GLUCOSE BEDSIDE (test code = GLUBED) 113 MG/DL 70-110 H Performed by teto mcdaniel tapper operator at [facility] PROTHROMBIN UJGQ7373-82-05 15:23:00* Test Item Value Reference Range Interpretation Comme [facility] PROTHROMBIN TIME PATIENT (test code = [...] (to prevent recurrent infarct). TSH REFLEX TO [id number] 14:32:00* Test Item Value Reference Range Interpretation Comme [facility] TSH REFLEX TO FT4 (test code = TSHREFLEX) 1.59 IU/mL 0.42-5.47 N HGBA1C%2022-10-16 14:19:00* Test Item Value Reference Range Interpretation Comme [facility] HGBA1C% (test code = HGBA1C%) 5.5 %A1C 4.8-6.0 N WNGJWKWMQ2655-61-43 14:13:00* Test Item Value Reference Range Interpretation Comme [facility] MAGNESIUM (test code = MAG) 1.91 mg/dL 1.80-2.40 N COMPREHENSIVE METABOLIC KTFTK9069-61-40 14:13:00* Test Item Value Reference Range Interpretation Comme [facility] SODIUM (test code = NA) 138 [...] = ALKP) 62 IUnit/L 20-125 N GLUCOSE UHSDKGB4732-04-53 12:54:00* Test Item Value Reference Range Interpretation Comme nts GLUCOSE BEDSIDE (test code = GLUBED) 102 MG/DL 70-110 N Performed by cer tified tapper operator at [facility] GLUCOSE GTQUSGB8260-72-38 10:14:00* Test Item Value Reference Range Interpretation Comme nts GLUCOSE BEDSIDE (test code = GLUBED) 110 MG/DL 70-110 N Performed by [employer] tapper operator at [facility] CBC W/AUTO ZEXB7775-49-68 05:58:00* Test Item Value Reference Range Interpretation [...] Notes Date/Time Note Provider Source 2023-02-14 02:12:00 [id number] VK0aht/wxgf0d5sn7kz3nPyPDTxL7 +qb5WNVGhYS9RA/eAnKI6pcWF/b3059-67-54F35:12:00 [facility] ([facility])Discharge SummaryREPORT#:[id number] REPORT STATUS: SignedREPORT INITIALIZATION DATE:02/14/23 TIME: 211 PATIENT: MATHEW CASTILLO UNIT #: [id number]#: [id number] ROOM/BED: 5507-1DOB: [birth year] AGE: 62 SEX: M [...] HYDRONEPHROSIS J98.11 ATELECTASIS N17.9 ACUTE KIDNEY FAILURE, EXCJPEYQNOIQ11.8 OTHER RETENTION OF URINE D72.829 ELEVATED WHITE [...] (Auto) (14.0 - 32.0 %) 7.1 L Wilkes % (Auto) (4.8 - 9.0 %) 8.1 Eos % (Auto) (0.3 - 3.7 %) 0.4 Baso % (Auto) (0.0 - 2.0 %) 0.1 Neut # (Auto) (2.0 - 7.6 x10 3/uL) 9.37 H Lymph # (Auto) (1.0 - 3.8 x10 3/uL) 0.79 L Wilkes # (Auto) (0.1 - 0.8 x10 3/uL) [...] 3/uL) 0.[address] ABD PELVIS W/CONT 74134 EXAM: CT abdomen and pelvis with contrast [...] Care Discharge InstructionsAdditional Discharge Routines: PCP Follow-Up, Mix Crusher Operator Follow-Up)( Diet: Regular Follow-up AppointmentsPCP follow up: PCP: Lakhwinder Guillermo MD PCP follow up timeframe: In 5 daysAttending Physician: Attending Physician: Salinas Alba MD Attending physician follow up timeframe: In 1-2 weeksConsulting provider 1: Provider 1: Dave Jones MD Specialty: Urology Consult follow up timeframe: In 1-[address] [place] [address] #:[phone] OF REPORTDSDischarge whungyp9008-87-53W51:12:00G.MZBT64289783-0108CJOm ailable for patient cfegBHTCYSLJWDIKKT1683-49-58D57:16:15 [facility] 2023-02-04 04:06:00 [id number] 4bPqi9wzp4BZHVzagUD9fosl87N23 TWjX+D/BfxBEuaIheG0R46+vZ6R4794-91-43R15:06:00 [facility] ([facility]EDischarge SummaryREPORT#:[id number] REPORT STATUS: SignedREPORT INITIALIZATION DATE:02/04/23 TIME: 0406 PATIENT: MATHEW CASTILLO SINCERE UNIT #: [id number]#: [id number] [facility] AGE: 62 SEX: M ATTEND: Salinas [...] lift yesterday by Dr. Jones transferred from [place] for urology evaluation secondary tohematuria after bladder irrigation failed. Patient was seen and evaluated by Dr. 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 [facility] with urinary retention.Abnormal labs: [...] range of motion, normal sensory, normal motor functionNeuro/CLIENT RELATIONS REPRESENTATIVE: alert, oriented X 3Skin: dry, intact, no [...] % (Auto) (14.0 - 32.0 %) 20.8 Wilkes % (Auto) (4.8 - 9.0 %) 7.7 Eos % (Auto) (0.3 - 3.7 %) 8.1 H Baso % (Auto) (0.0 - 2.0 %) 0.7 Neut # (Auto) (2.0 - 7.6 x10 3/uL) 4.51 Lymph # (Auto) (1.0 - 3.8 x10 3/uL) 1.51 Wilkes # (Auto) (0.1 - 0.8 x10 3/uL) [...] 3/uL) 0.[address] ABD PELVIS W/CONT 82276 H 20 TIME OF STUDY: 01/04/2023 7:55 [...] Care Discharge InstructionsAdditional Discharge Routines: PCP Follow-Up, Mix Crusher Operator Follow-Up)( Diet: Cardiac Follow-up AppointmentsPCP follow up: PCP: Lakhwinder Guillermo MD PCP follow up timeframe: In 5 days Special instructions:CALL TO MAKE APPOINTMENTConsulting provider 1: Provider 1: Dave Jones MD Specialty: Urology Special instructions:CALL TO SCHEDULE APPOINTMENT at 0735 [facility] #:[phone] OF REPORTDSDischarge cbvxime5362-28-00P88:06:00G.KFVL53149554-4826HCTj ailable for patient qrogQSBRSBHYDQUZFU2987-12-82K61:36:15 [facility] 2023-01-27 18:31:00 [id number] c4pDWc/QKUjerh/yjEyja5OwfIFO3 QoVTyEQu8i3PB04X4ts05RtkdGU6110-43-55I77:31:12656 3-0230 [place] [address] PATIENT NAME: MATHEW CASTILLO ADMIT DATE: 01/06/23ACCOUNT NO: [id number] ROOM NO: [facility] AGE: 62 REPORT TYPE: 360 - QUERY RESPONSE DOCUMENT SEX: M ADMITTING PHYSICIAN:Salinas Alba MD ATTENDING PHYSICIAN:Salinas Alba MD Provider Query QUERY TEXT: Condition General 360MD Query related questions should be directed to: [facility] Coding Query Helpline [Based on [...] AM at 1831 PATIENT NAME: MATHEW CASTILLO noteG.[id number] for patient hfllUZFCBQYPGVGDFW8559-18-69U25:31:38 [facility] 2023-01-27 13:09:00 [id number] fqFWbug+aseyPppzw/G5DpriU+/8Y tER/nrqaAKj1mf++YmxT9w5GaBg3845-41-36A16:09:75384 3-0114 [place] [address] PATIENT NAME: MATHEW CASTILLO ADMIT DATE: 01/06/23ACCOUNT NO: [id number] ROOM NO: G.C146 AGE: 62 REPORT TYPE: 360 - QUERY RESPONSE DOCUMENT SEX: M ADMITTING PHYSICIAN:Salinas Alba MD ATTENDING PHYSICIAN:Salinas Alba MD Provider Query QUERY TEXT: Condition General 360MD Query related questions should be directed to: [facility] Coding Query Helpline [Based on your medical judgement and the clinical indicators listed below kindly specify the underlying cause of the patient's heamaturia(Hematuria due to bladder lift surgery, hematuria due to UTI, hematuria unspecified, or other more appropriate diagnosis)?.] The patient's Clinical Indicators include:62-year-old male with last medical history of, BPH, s/p bladder lift yesterdayby Dr. Jones transferred from [place] for urology evaluation secondary tohematuria after bladder [...] to bladder lift surgery Query created by: MDAY PEREZ on 01/22/2023 2:55 AM at 1309 PATIENT NAME: MATHEW CASTILLO noteG.[id number] for patient ktxeAKPKXVDMOWTDDO4577-57-75N44:10:17 [facility] 2023-01-27 13:09:00 [id number] OUHUmeU1SxG4qK8OXYstTcy7qte7u BCGqL6yuinSMhS6STb/8uyPCUie5992-16-31R62:09:08779 3-0115 [place] [address] PATIENT NAME: MATHEW CASTILLO ADMIT DATE: 01/06/23ACCOUNT NO: [id number] ROOM NO: G.C146 AGE: 62 REPORT TYPE: 360 - QUERY RESPONSE DOCUMENT SEX: M ADMITTING PHYSICIAN:Salinas Alba MD ATTENDING PHYSICIAN:Salinas Alba MD Provider Query QUERY TEXT: Condition General 360MD Query related questions should be directed to: [facility] Coding Query Helpline [Based on [...] blood culture, likely could be eithercontaminant or high school admissions representative of transient bacteremia: progress note 01/11/2023 Options provided:-- Respond - Create new note now-- Dismiss - Not applicable / Not valid-- Dismiss - Clinically unable to determine / Unknown-- Assign to another provider QUERY RESPONSE: sepsis was not confirmed, patient had localized infection Query created by: MADY PEREZ on 01/22/2023 3:09 AM at 1309 PATIENT NAME: MATHEW CASTILLO noteG.[id number] for patient dwdhGCWUQAXKNSYETN7240-42-43Y40:10:27 [facility] 2023-01-22 17:40:00 [id number] oWE8JxLA0FswigSStU3PoU9ADHKfd eK2tznCakqhvjKlewXLhAFoopyu4691-73-04K47:40:00 [facility] ([facility])Internal Medicine Prog. NoteREPORT#:[id number] REPORT STATUS: SignedREPORT INITIALIZATION DATE:01/22/23 TIME: 1740 PATIENT: MATHEW CASTILLO UNIT #: [id number]#: [id number] [place] [facility] [place] [birth year] AGE: 62 SEX: M ATTEND: Salinas Alba I MDADM AUTHOR: Sofia Cheng NPREPT SERVICE DT/TIME: 01/22/23 1740* ALL edits or amendments must be made on the electronic/computer document * Objective GeneralVS/I O:Vital SignsDate Temp Pulse Resp B/P B/P Mean Pulse Ox WiE699/17-01/22 36.6-37.0 78-88 14-20 109-137/64-82 80.9-100.0 95-98 Last [...] Sodium Chloride (SODIUM CHLORIDE 0.9%) 1,000 ML .R83U36S IV Haloperidol (HALDOL) 10 MG BID PO [...] (Auto) (14.0 - 32.0 %) 9.8 L Wilkes % (Auto) (4.8 - 9.0 %) 9.0 Eos % (Auto) (0.3 - 3.7 %) 5.7 H Baso % (Auto) (0.0 - 2.0 %) 0.4 Neut # (Auto) (2.0 - 7.6 x10 3/uL) 7.35 Lymph # (Auto) (1.0 - 3.8 x10 3/uL) 0.97 L Wilkes # (Auto) (0.1 - 0.8 x10 3/uL) [...] notes:discharged see discharge summery at 2132 RPT #:[id number] OF REPORTPRProgress lezq5095-78-93N42:40:00G.LJIF62928403-8362CMUddqi able for patient ewmuUYDVYIIBACXPUG4907-01-59C27:33:02 [facility] 2023-01-22 12:19:00 [id number] MJ/W9rhoYrTMHvaSfmtRtVnyz6Y// ECr0i4hIm+EiQOkhkOq+EhO06ap5787-32-54N81:19:00 [facility] ([facility])Nephrology Consultation NoteREPORT#:[id number] REPORT STATUS: SignedREPORT INITIALIZATION DATE:01/22/23 TIME: 1218 PATIENT: MATHEW CASTILLO UNIT #: [id number]#: [id number] [address]OB: [birth year] AGE: 62 SEX: M ATTEND: [...] thepatient given empirc abx and transferred to [facility] [place] yesterday for furtherevaluation and management. Initial VS [...] Time Status Admin Sodium Chloride 1,000 ML .C98T62Q 01/21 2330 AC 01/22 (SODIUM CHLORIDE IV [...] Sodium Chloride (SODIUM CHLORIDE 0.9%) 1,000 ML .O72T98V IV Haloperidol (HALDOL) 10 MG BID PO [...] (Auto) (14.0 - 32.0 %) 9.8 L Wilkes % (Auto) (4.8 - 9.0 %) 9.0 Eos % (Auto) (0.3 - 3.7 %) 5.7 H Baso % (Auto) (0.0 - 2.0 %) 0.4 Neut # (Auto) (2.0 - 7.6 x10 3/uL) 7.35 Lymph # (Auto) (1.0 - 3.8 x10 3/uL) 0.97 L Wilkes # (Auto) (0.1 - 0.8 x10 3/uL) [...] and . at 1923 at 1933 RPT #:[id number] OF REPORTASRwoffrboepes6473-83-80C45:19:00G.PDOC2 9869001-1009POAzrfoffqo for patient svwqMTBCSOUMXNQVWT5666-94-56C86:23:39 [facility] 2023-01-21 19:40:00 [id number] GFFA+AFHimxdUAKSHanlivZ9+XbyB O3rZEzzZxQWi48hGH8QUgnim7Zn1083-15-08M93:40:00 [facility])Urology Consult NoteREPORT#:[id number] REPORT STATUS: SignedREPORT INITIALIZATION DATE:01/21/23 TIME: 1939 PATIENT: MATHEW CASTILLO UNIT #: [id number]#: [id number] [address] [birth year] AGE: 62 SEX: M ATTEND: [...] at outside hospital and was transferred to [place] with acute renal failure and urinary retention. Outside labs showed creatinine of 5.6, GFR 11. They were able to place a catheter at the outside hospital and his creatinine currently is 2.6 GFR 27. Patient feels overall well he has a [address] [place] [address] that is patent and draining [...] (Auto) (14.0 - 32.0 %) 7.1 L Wilkes % (Auto) (4.8 - 9.0 %) 8.1 Eos % (Auto) (0.3 - 3.7 %) 0.4 Baso % (Auto) (0.0 - 2.0 %) 0.1 Neut # (Auto) (2.0 - 7.6 x10 3/uL) 9.37 H Lymph # (Auto) (1.0 - 3.8 x10 3/uL) 0.79 L Wilkes # (Auto) (0.1 - 0.8 x10 3/uL) [...] in outside hospital and was transferred to [place]. He has indwelling Black placed from the outside hospital that is patent and draining clear urine. Creatinine has down trended to 2.6 from 5.6. -Continue indwelling Black do not remove-Trend creatinine-Discussed patient to follow-up with our clinic 01/30/2023 for nurse visit catheter removal and CIC teaching for which he was amenable to trying Crystal Alberts MD -covering for Dr. Jones [facility] at 1948 RPT #:[id number] OF REPORTIBZnyazcohptbr6724-02-11O38:40:00G.PDOC2 0051047-9865BJCepnxtkwb for patient exgwZITSUOFSTAFFOE6302-17-70A50:48:32 [facility] 2023-01-21 10:48:00 [id number] vzE8uc+HWA8f2IVngu2e5o4IFY714 ZiwSEfFieY0E9tUiU+5WwYmTn6d9790-84-35D82:48:00 [facility] ([facility])History Physical - AdultREPORT#:[id number] REPORT STATUS: SignedREPORT INITIALIZATION DATE:01/21/23 TIME: 1048 PATIENT: MATHEW CASTILLO SINCERE UNIT #: [id number]#: [id number] ROOM/BED: 5507-1DOB: [birth year] AGE: 62 SEX: M ATTEND: Salinas Alba I [facility] AUTHOR: Sofia Cheng NPREPT SERVICE DT/TIME: 01/21/23 1048* ALL edits or amendments must be made on the electronic/computer document * History of Present Illness HPIChief complaint:Acute kidney injuryUrinary retentionHPI: 62-year-old male with last medical history of, BPH-s/p UroLift 01/03/2023, schizophrenia was transferred from [facility] ER with acute kidney injury [...] range of motion, normal sensory, normal motor functionNeuro/CLIENT RELATIONS REPRESENTATIVE: alert, oriented X 3Skin: dry, intact, no [...] (Auto) (14.0 - 32.0 %) 7.1 L Wilkes % (Auto) (4.8 - 9.0 %) 8.1 Eos % (Auto) (0.3 - 3.7 %) 0.4 Baso % (Auto) (0.0 - 2.0 %) 0.1 Neut # (Auto) (2.0 - 7.6 x10 3/uL) 9.37 H Lymph # (Auto) (1.0 - 3.8 x10 3/uL) 0.79 L Wilkes # (Auto) (0.1 - 0.8 x10 3/uL) [...] range of motion, normal sensory, normal motor functionNeuro/CLIENT RELATIONS REPRESENTATIVE: alert, oriented X 3Skin: dry, intact, no gross abnormalitiesPsychiatry: Mild anxiety Diagnosis, Assessment Plan Free Text DxA P NotesFree Text DxA P Notes:Assessment:62-year-old male with last medical history of, BPH-s/p UroLift 01/03/2023, schizophrenia was transferred from [facility] ER with acute kidney injury [...] clinical course at 0300 at 1108 RPT #:[id number] OF REPORTHPHistory and physical phajdcjqmhi0507-35-05K42:48:00G.REMI08791641-8335 AVAvailable for patient cpkgCALYQHQKKAQDLK8258-48-09C85:00:45 [facility] 2023-01-21 05:27:00 [id number]/Lisa mDJRvH2hEU+/B5sklADLJZ/wjkHzc vsjF16LlEocBX32CAj0qe8RCk5Y9651-82-25Z81:27:00 [facility]EMERGENCY PROVIDER REPORTREPORT#:[id number] REPORT STATUS: SignedDATE:01/21/23 TIME: 526 PATIENT: MATHEW CASTILLO UNIT #: [id number]#: [id number] [address] S[address]: M PCP PHYS: Lakhwinder Guillermo MDSERVICE AUTHOR: Elizabeth Davenport APRNNP * ALL edits or amendments must be made on the electronic/computer document * Elizabeth Davenport 01/21/23 0527:HPI-General Illness Free Text HPI NotesFree Text HPI Sjfqr76-ibuc-zxy male with PMH as listed below presents to the ER as a transfer [facility] for diagnoses of ARF, urinary retention. Patient presented to the ER for evaluation of abdominal pain and urine retention that started 1 week ago after having his black catheter removed. A 14fr coude catheter was placed. Diagnostic w/u noted WBC of 14, creatinine 5.6, GFR 11, HDF699. 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 He denies any additional symptoms such as recentfever, chest pain, shortness of breath, N/V/D/C, testicular pain or any other symptoms. GeneralInitial Greet Date/Time 01/21/23 0514PCPhackney, uroAMIN, PCP, [facility] PresentationChief Complaint __ (urine retention)Hx Obtained From [...] No palpable masses or pulsatile masses. Negative [place] Sign. [facility] PointGU: Indwelling Black, straw-colored, non-cloudy urine, 600mlExt: [...] (Auto) (14.0 - 32.0 %) 7.1 L Wilkes % (Auto) (4.8 - 9.0 %) 8.1 Eos % (Auto) (0.3 - 3.7 %) 0.4 Baso % (Auto) (0.0 - 2.0 %) 0.1 Neut # (Auto) (2.0 - 7.6 x10 3/uL) 9.37 H Lymph # (Auto) (1.0 - 3.8 x10 3/uL) 0.79 L Wilkes # (Auto) (0.1 - 0.8 x10 3/uL) [...] kidney injury)Secondary Impressions: Obstructive uropathy [facility] Salinas Alba MD [facility] Physician Hospitalist Request Time 0623 [...] the patient along with involvement of the PA/ASSEMBLER FAUCETS. I agree with the PA/microsoft dynamics ax developer findings and plan. I have performed all aspects of MDM as documented including: evaluation of the patient/patient's condition(s), review and analysis of available data, and determinationof risk of patient management decisions. at 2244 at 1025RPT #:[id number] OF REPORTEDEmergency department sfgnyp2031-24-22A05:27:00G.FXDP94843268-6353BONtc ilable for patient lsfuQLHCEMWJGHIIDH7806-15-26A89:46:19 [facility] 2023-01-15 09:31:00 [id number] PvXyerHsllRea97NBfEFN/j8j4xWR 20olclvPZL6I0D0GtZD7Q983DAT2567-50-56H59:31:06359 1-[address] [address] PATIENT NAME: MATHEW CASTILLO ADMIT DATE: 01/06/23ACCOUNT NO: [id number] ROOM NO: G.C146 AGE: 62 REPORT TYPE: 360 - QUERY RESPONSE DOCUMENT SEX: M ADMITTING PHYSICIAN:Salinas Alba MD ATTENDING PHYSICIAN:Salinas Alba MD Provider Query QUERY TEXT: Clarification Rule In Rule Out 360MD Query related questions should be directed to: [facility] Coding Query Help-line Based on [...] AM at 0931 PATIENT NAME: MATHEW CASTILLO noteG.[id number] for patient lfnuVITMOTVKCDHJWN1140-46-49Z89:31:59 [facility] 2023-01-11 17:08:00 [id number] 9WrdRTo+KK4xfeSGKcVleq6fengnl 2Z4wv8qTDoTeAYxBYMzYb5sFh2T4808-28-97V22:08:66136 7-0170 [place] [address] PATIENT NAME: MATHEW CASTILLO ADMIT DATE: 01/06/23ACCOUNT NO: [id number] ROOM NO: [facility] AGE: 62 REPORT TYPE: PROGRESS NOTE SEX: [...] he was admitted through Emergency Room to [facility] facility [facility], and from there, he was transferred to [facility]. The patient PATIENT NAME: MATHEW CASTILLO was evaluated by Urology Service. He was placed on broad-spectrum IVantibiotics. His urine culture has shown growth of Pseudomonas aeruginosa and 1out of 2 blood culture has shown growth of Enterococcus faecalis. TheEnterococcus faecalis growing in 1 blood culture, likely could be eithercontaminant or high school admissions representative of transient bacteremia. Clinically is doingfairly well. His urine culture has shown growth of Pseudomonas aeruginosa. Fornow, we will continue him on the present treatment, and once he is ready to bedischarged home, we will switch him to oral ciprofloxacin. Discussed with thepatient's nursing staff and with MARLENA Cheng. Dictated By: Skip Jaffe MD Date Dictated: 01/11/2023 17:08:17Date Transcribed: 01/11/2023 18:52:55HA/Nicole #: [id number] ID: [id number] Authenticated and Edited by Skip Jaffe MD On 01/22/23 5:19:12 AM at 0520 PATIENT NAME: MATHEW CASTILLO jnwc5857-42-16U67:52:00G.XOG18142680-1878OJTpvnhx ble for patient eaolVDMODYHEVUVHRP5103-51-23E67:21:34 [facility] 2023-01-10 21:43:00 [id number]+AWu whH4hQu9axs5GT1SIe+PPQmmBxkgp mBguPSH9ZwmyxdP94bnPOeF5VaP9211-03-10K90:43:00 [facility] ([facility])Internal Medicine Prog. NoteREPORT#:[id number] REPORT STATUS: SignedREPORT INITIALIZATION DATE:01/10/23 TIME: 2142 PATIENT: MATHEW CASTILLO UNIT #: [id number]#: [id number] [address] [birth year] AGE: 62 SEX: M ATTEND: Salinas Alba AUTHOR: Sofia Cheng NPREPT SERVICE DT/TIME: 01/10/232142* ALL edits or amendments must be made on the electronic/computer document * SubjectiveChief complaint:HematuriaHPI:62-year-old male with last medical history of, BPH, s/p bladder lift yesterday by Dr. Jones transferred from [place] for urology evaluation secondary tohematuria after bladder irrigation failed. pt was seen and evaluated by Dr. 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 Last admitted to [facility] on 10/16/22 with urinary retention. Abnormal [...] MLSodium Chloride (SODIUM CHLORIDE 0.9%) 1,000 ML .M13X22D IV (DC) Sodium Chloride (SODIUM CHLORIDE 0.9%) [...] range of motion, normal sensory, normal motor functionNeuro/CLIENT RELATIONS REPRESENTATIVE: alert, oriented X 3Skin: dry, intact, no gross abnormalitiesPsychiatry: no hallucinations, normal affect, normal judgment/insight, normal mood, not homicidal, not suicidal Free Text DxA P NotesFree text DxA P notes:Assessment:62-year-old male with last medical history of, BPH, s/p bladder lift yesterday by Dr. Jones transferred from [place] for urology evaluation secondary tohematuria after bladder irrigation failed. pt was seen and evaluated by Dr. 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 Last admitted to [facility] on 10/16/22 with urinary retention.Abnormal labs: [...] electrolytesRepeat labsFurther recommendation based on patient's clinical qjnjsy3101/06/2023Vital signs within normal limitsBlood culture shows Enterococcus [...] urology outpatient at 0024 at 0814 RPT #:[id number] OF REPORTPRProgress czoq6582-03-67R34:43:00G.VHUV29557385-6929KEQljin able for patient jrovXXUFMVCYJIIJUL4494-67-51H46:25:19 [facility] 2023-01-10 20:39:00 [id number]/Z+Wz AnXR3flD3IbVSKQqrVJjzrs9VDYXI aXOjyBWPB6hjz4rW7XDLZo9g+gp3970-88-76G28:39:00 [facility] ([facility])Infectious Dis. Progress NoteREPORT#:[id number] REPORT STATUS: SignedREPORT INITIALIZATION DATE:01/10/23 TIME: 2038 PATIENT: MATHEW CASTILLO UNIT #: [id number]#: [id number] [address] AGE: 62 SEX: M ATTEND: [...] home on oral ciprofloxacin. at 0244 RPT #:[id number] OF REPORTPRProgress xqpf4222-26-32O05:39:00G.ZKZJ98345475-5007AQQwmwt able for patient xndbGLDAWBEOGGYUUC2463-41-59K54:44:38 [facility] 2023-01-10 08:39:00 [id number] EM+NNpSp0/CWP72Nu9Upzv/zJTMUe eDhGbYsHmLxzbogIOitJJ/W3i9y4584-29-16N88:39:06929 6-0055 [place] [address] PATIENT NAME: MATHEW CASTILLO ADMIT DATE: 01/06/23ACCOUNT NO: [id number] ROOM NO: [facility] AGE: 62 REPORT TYPE: PROGRESS NOTE SEX: [...] Date Dictated: 01/10/2023 08:39:27Date Transcribed: 01/10/2023 09:42:11HA/KYLE Gdbbjtv ID: [id number] Authenticated and Edited by Skip Jaffe MD On 01/22/23 5:19:04 AM at 0520 PATIENT NAME: MATHEW CASTILLO qrel1169-89-85Q99:42:00G.GHU17584036-5262BUKasrjm ble for patient luqsAUMQKDQABOFPHQ6774-11-02R37:21:54 [facility] 2023-01-09 22:29:00 [id number] pF4Uap7oXSZbz974wLnY3DnpleOmb lrFV77svZSaG3CFTZEB68mmJo4n6731-61-84D58:29:00 [facility] ([facility])Internal Medicine Prog. NoteREPORT#:[id number] REPORT STATUS: SignedREPORT INITIALIZATION DATE:01/09/23 TIME: 2228 PATIENT: MATHEW CASTILLO UNIT #: [id number]#: [id number] [address] AGE: 62 SEX: M ATTEND: Salinas Alba I MDA AUTHOR: Sofia Cheng NPREPT SERVICE DT/TIME: 01/09/232228* ALL edits or amendments must be made on the electronic/computer document * SubjectiveChief complaint:HematuriaHPI:62-year-old male with last medical history of, BPH, s/p bladder lift yesterday by Dr. Jones transferred from [place] for urology evaluation secondary tohematuria after bladder irrigation failed. pt was seen and evaluated by Dr. 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 Last admitted to [facility] on 10/16/22 with urinary retention. Abnormal [...] MLSodium Chloride (SODIUM CHLORIDE 0.9%) 1,000 ML .M83H64L IV Sodium Chloride (SODIUM CHLORIDE 0.9%) 1,000 [...] % (Auto) (14.0 - 32.0 %) 20.8 Wilkes % (Auto) (4.8 - 9.0 %) 7.7 Eos % (Auto) (0.3 - 3.7 %) 8.1 H Baso % (Auto) (0.0 - 2.0 %) 0.7 Neut # (Auto) (2.0 - 7.6 x10 3/uL) 4.51 Lymph # (Auto) (1.0 - 3.8 x10 3/uL) 1.51 Wilkes # (Auto) (0.1 - 0.8 x10 3/uL) [...] range of motion, normal sensory, normal motor functionNeuro/CLIENT RELATIONS REPRESENTATIVE: alert, oriented X 3Skin: dry, intact, no gross abnormalitiesPsychiatry: no hallucinations, normal affect, normal judgment/insight, normal mood, not homicidal, not suicidal Free Text DxA P NotesFree text DxA P notes:Assessment:62-year-old male with last medical history of, BPH, s/p bladder lift yesterday by Dr. Jones transferred from [place] for urology evaluation secondary tohematuria after bladder irrigation failed. pt was seen and evaluated by Dr. 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 Last admitted to [facility] on 10/16/22 with urinary retention.Abnormal labs: [...] electrolytesRepeat labsFurther recommendation based on patient's clinical qkoris3501/06/2023Vital signs within normal limitsBlood culture shows Enterococcus speciesUrine culture grows gram-negative tedooro-identification and sensitivity pendingHematuria is improved.Wean CBI as [...] as neededContinue medications and present care at 8889 at 8368 RPT #:[id number] OF REPORTPRProgress jdoh4678-98-09N28:29:00G.CHWK69317047-0663BXSpjnj able for patient qtszQTVJUHCBYYRMRB7725-57-24N21:59:46 [facility] 2023-01-09 19:20:00 [id number] +vim2MUDyzYqXlLkOlsnedZ8GT8UE 2ZmlNCo1YWsDrkB0NWQKgPcEuRi8815-96-30U98:20:00 [facility] ([facility])Infectious Dis. Progress NoteREPORT#:[id number] REPORT STATUS: SignedREPORT INITIALIZATION DATE:01/09/23 TIME: 1919 PATIENT: MATHEW CASTILLO UNIT #: [id number]#: [id number] [address] AGE: 62 SEX: M ATTEND: [...] him home on oral ciprofloxacin. at 0432 [facility] #:[id number] OF REPORTPRProgress gdqi3025-38-59X15:20:00G.RHZK00457056-5226KWMwpam able for patient bmhnLLIOICMNPTVMHY9101-79-41K88:33:11 [facility] 2023-01-09 18:36:00 [id number] HqStNn5L2kLFY4JfVjvBG4o0CxRww 5oKBBCd5k4VG9/r6kySzxvo28kO5018-86-19M51:36:94034 5-[address] [place] [address] PATIENT NAME: MATHEW CASTILLO ADMIT DATE: 01/06/23ACCOUNT NO: [id number] ROOM NO: GC146 AGE: 62 REPORT TYPE: [...] was PATIENT NAME: MATHEW CASTILLO admitted to [place], and from there, he was transferred to [facility] urology followup. The patient was on admission, [...] MD Date Dictated: 01/09/2023 18:36:08Date Transcribed: 01/09/2023 20:19:12/[facility] Hsndbjp ID: [id number] Authenticated and Edited by Skip Jaffe MD On 01/22/23 5:18:55 AM at 0520 PATIENT NAME: MATHEW CASTILLO delv5738-35-25V48:19:00G.LXV08928698-2003FAFjxari ble for patient wilrCXERHIMSSHMQWL3548-97-36E55:21:54 [facility] 2023-01-09 11:30:00 [id number] VVgb5ZvYF0a3aRh4+zx8D8xfcLG9K EpOFRlb31UDBnBYL882Qlwc8Znr6192-89-10L62:30:00 [facility] ([facility])Urology Progress NoteREPORT#:[id number] REPORT STATUS: SignedREPORT INITIALIZATION DATE:01/09/23 TIME: 1129 PATIENT: MATHEW CASTILLO UNIT #: [id number]#: [id number] [address] [birth year] AGE: 62 SEX: M ATTEND: [...] as planned in clinic at 1131 RPT #:[id number] OF REPORTPRProgress bgjz5480-18-39O13:30:00G.XUJZ40654062-0546RQAcrlp able for patient dwlcBCEBYZBCWLIULM6544-21-34Q26:32:06 [facility] 2023-01-08 21:19:00 [id number] yom/ZlmVBFipusHma/tf5iVhkbR3i mvkwEKiPlhaDYscOhs1ixNttblg2723-18-18W80:19:00 [facility])Internal Medicine Prog. NoteREPORT#:[id number] REPORT STATUS: SignedREPORT INITIALIZATION DATE:01/08/23 TIME: 2118 PATIENT: MATHEW CASTILLO UNIT #: [id number]#: [id number] [address] AGE: 62 SEX: M ATTEND: Salinas Alba I [facility] AUTHOR: Sofia Cheng NPREPT SERVICE DT/TIME: 01/08/232118* ALL edits or amendments must be made on the electronic/computer document * SubjectiveChief complaint:HematuriaHPI:62-year-old male with last medical history of, BPH, s/p bladder lift yesterday by Dr. Jones transferred from [place] for urology evaluation secondary tohematuria after bladder irrigation failed. pt was seen and evaluated by Dr. 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 Last admitted to [facility] on 10/16/22 with urinary retention. Abnormal [...] MLSodium Chloride (SODIUM CHLORIDE 0.9%) 1,000 ML .U86J67S IV Sodium Chloride (SODIUM CHLORIDE 0.9%) 1,000 [...] % (Auto) (14.0 - 32.0 %) 22.3 Wilkes % (Auto) (4.8 - 9.0 %) 6.9 Eos % (Auto) (0.3 - 3.7 %) 9.9 H Baso % (Auto) (0.0 - 2.0 %) 0.9 Neut # (Auto) (2.0 - 7.6 x10 3/uL) 3.89 Lymph # (Auto) (1.0 - 3.8 x10 3/uL) 1.46 Wilkes # (Auto) (0.1 - 0.8 x10 3/uL) [...] range of motion, normal sensory, normal motor functionNeuro/CLIENT RELATIONS REPRESENTATIVE: alert, oriented X 3Skin: dry, intact, no gross abnormalitiesPsychiatry: no hallucinations, normal affect, normal judgment/insight, normal mood, not homicidal, not suicidal Free Text DxA P NotesFree text DxA P notes:Assessment:62-year-old male with last medical history of, BPH, s/p bladder lift yesterday by Dr. Jones transferred from [place] for urology evaluation secondary tohematuria after bladder irrigation failed. pt was seen and evaluated by Dr. 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 Last admitted to [facility] on 10/16/22 with urinary retention.Abnormal labs: [...] electrolytesRepeat labsFurther recommendation based on patient's clinical ttqixf9401/06/2023Vital signs within normal limitsBlood culture shows Enterococcus [...] present care at 2359 at 1240 RPT #:[id number] OF REPORTPRProgress txam0798-60-37J78:19:00G.MLZT83854037-4826ZFMhdhw able for patient fxsgJBUUAZLWHUYUQM0176-59-09H60:59:46 [facility] 2023-01-08 18:59:00 [id number] 1Z+eq0BFFHe1E+QBu/y161djbiMUC hyYuGgQypof7ndrQ8SjC/T8AAL46153-57-20T71:59:00 [facility] ([facility])Infectious Dis. Progress NoteREPORT#:[id number] REPORT STATUS: SignedREPORT INITIALIZATION DATE:01/08/23 TIME: 1858 PATIENT: MATHEW CASTILLO UNIT #: [id number]#: [id number] [address] [birth year] AGE: 62 SEX: M ATTEND: [...] home on oral ciprofloxacin. at 0321 RPT #:[id number] OF REPORTPRProgress hqgh4931-88-86E06:59:00G.ZFHD83922516-1267CZIyiss able for patient azdhWZFVFPENDJXLCI6688-88-52V54:21:51 [facility] 2023-01-08 18:22:00 T58025928714knr5jFp3 OZlRI26ktgh6LPuMW19BzijdkhwEb /zvonTmN2kw1ijxAqQFeS68rckv5661-08-64L39:22:24925 4-0317 [place] [address] PATIENT NAME: MATHEW CASTILLO ADMIT DATE: 01/06/23ACCOUNT NO: [id number] ROOM NO: [facility] AGE: 62 REPORT TYPE: PROGRESS NOTE SEX: [...] 205,000. Serum sodium is 138, potassium 4.0, xgjcvncu284, bicarbonate 26, glucose 91, BUN 14, creatinine 0.8, estimated GFR is 99.calcium is 7.8, blood culture 1 out of 2 has shown growth of Enterococcusfaecalis, which is pansensitive. Another blood culture so far is negative at 72hours of incubation. Urine culture has shown growth of Pseudomonas hoiaxskltd16,000 to 50,000 colony forming units. Currently, the [...] Dictated: 01/08/2023 18:22:31Date Transcribed: 01/08/2023 19:55:35HA/Trina #: [id number] ID: [id number] Authenticated and Edited by Skip Jaffe MD On 01/22/23 5:18:46 AM at 0520 PATIENT NAME: MATHEW CASTILLO mqqs4055-49-51L68:55:00G.FLZ25626732-3803CKGfbcrt ble for patient cxvxZEMXWZDKKQOXAD0802-90-93N71:21:54 [facility] 2023-01-08 17:58:00 [id number] v+Wahw7thPW+bn/944CR2NJ1E+hQy FrhWg8SdY6ZAf6Yy+i8Q+YC6cLU7880-32-93O69:58:00 [facility] ([facility])Urology Progress NoteREPORT#:[id number] REPORT STATUS: SignedREPORT INITIALIZATION DATE:01/08/23 TIME: 1757 PATIENT: MATHEW CASTILLO UNIT #: [id number]#: [id number] [address] AGE: 62 SEX: M ATTEND: [...] % (Auto) (14.0 - 32.0 %) 22.3 Wilkes % (Auto) (4.8 - 9.0 %) 6.9 Eos % (Auto) (0.3 - 3.7 %) 9.9 H Baso % (Auto) (0.0 - 2.0 %) 0.9 Neut # (Auto) (2.0 - 7.6 x10 3/uL) 3.89 Lymph # (Auto) (1.0 - 3.8 x10 3/uL) 1.46 Wilkes # (Auto) (0.1 - 0.8 x10 3/uL) [...] discharge with black tomorrow at 1759 RPT #:[id number] OF REPORTPRProgress upii6972-31-47R84:58:00G.OIPQ00501181-6439YJYbkbj able for patient enhhUCSTZLESQPIVJO0101-56-93T22:00:52 [facility] 2023-01-08 02:42:00 [id number]/h/v QBMoBI8L9LklbuqvdS0+Dmu+ff7uq RQjpdtUiMBa+5SMUp7V/Q6qdxwa5472-29-73N70:42:00 [facility] ([facility])Infectious Dis. Progress NoteREPORT#:[id number] REPORT STATUS: SignedREPORT INITIALIZATION DATE:01/08/23 TIME: 024 PATIENT: MATHEW CASTILLO UNIT #: [id number]#: [id number] [address] [birth year] AGE: 62 SEX: M ATTEND: [...] patient on IV Zosyn. at 0353 RPT #:[id number] OF REPORTPRProgress csmu8416-29-87F00:42:00G.GFUM90208514-6582TKDjapw able for patient dksnZVVMWFZNOWEPUM4519-55-96U68:54:17 [facility] 2023-01-07 21:05:00 [id number] Q+ZxKV0T3S5FqFUe2irDXa1OrVJjQ qFRwNTiqI6leVlUcThU1sim6+9U8427-39-64G91:05:00 [facility] Prog. NoteREPORT#:[id number] REPORT STATUS: SignedREPORT INITIALIZATION DATE:01/07/23 TIME: 2104 PATIENT: MATHEW CASTILLO UNIT #: [id number]#: [id number] [address] [birth year] AGE: 62 SEX: M ATTEND: Sal[place] Alba I [facility] AUTHOR: Sofia Cheng NPREPT SERVICE DT/TIME: 01/07/232104* ALL edits or amendments must be made on the electronic/computer document * SubjectiveChief complaint:HematuriaHPI:62-year-old male with last medical history of, BPH, s/p bladder lift yesterday by Dr. Jones transferred from [place] for urology evaluation secondary tohematuria after bladder irrigation failed. pt was seen and evaluated by Dr. 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 Last admitted to [facility] on 10/16/22 with urinary retention. Abnormal [...] MLSodium Chloride (SODIUM CHLORIDE 0.9%) 1,000 ML .P18K83Y IV Sodium Chloride (SODIUM CHLORIDE 0.9%) 1,000 [...] % (Auto) (14.0 - 32.0 %) 21.2 Wilkes % (Auto) (4.8 - 9.0 %) 7.2 Eos % (Auto) (0.3 - 3.7 %) 10.4 H Baso % (Auto) (0.0 - 2.0 %) 0.8 Neut # (Auto) (2.0 - 7.6 x10 3/uL) 3.56 Lymph # (Auto) (1.0 - 3.8 x10 3/uL) 1.26 Wilkes # (Auto) (0.1 - 0.8 x10 3/uL) [...] range of motion, normal sensory, normal motor functionNeuro/CLIENT RELATIONS REPRESENTATIVE: alert, oriented X 3Skin: dry, intact, no gross abnormalitiesPsychiatry: no hallucinations, normal affect, normal judgment/insight, normal mood, not homicidal, not suicidal Free Text DxA P NotesFree text DxA P notes:Assessment:62-year-old male with last medical history of, BPH, s/p bladder lift yesterday by Dr. Jones transferred from [place] for urology evaluation secondary tohematuria after bladder irrigation failed. pt was seen and evaluated by Dr. 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 Last admitted to [facility] on 10/16/22 with urinary retention.Abnormal labs: [...] electrolytesRepeat labsFurther recommendation based on patient's clinical erugnm6501/06/2023Vital signs within normal limitsBlood culture shows Enterococcus [...] and present care at 2222 at 0742 [facility] #:[id number] OF REPORTPRProgress cewl0306-31-12B89:05:00G.EVKO05133978-1971QFLwpgs able for patient blufIOWUVEMDIHUEHI3569-43-81I59:22:45 [facility] 2023-01-07 16:17:00 [id number]+UimY41b QoX36lSdxW1vFozTrV0Ws7/Rh0T6T xTSrJh++h16ZOu4v5U7359nkkmI0529-89-88B35:17:00 [facility])Urology Progress NoteREPORT#:[id number] REPORT STATUS: SignedREPORT INITIALIZATION DATE:01/07/23 TIME: 1616 PATIENT: MATHEW CASTILLO UNIT #: [id number]#: [id number] [address] AGE: 62 SEX: M ATTEND: Salinas Alba I [facility] AUTHOR: Dave Jones MDREPT SERVICE DT/TIME: [...] - discharge with black tomorrow at 1617 [facility] #:[id number] OF REPORTPRProgress imrz1732-37-07U20:17:00G.MUWI87725585-1355VAJvzfv able for patient dbsiNYQQBSRLQDLULA7991-83-43Y97:18:01 [facility] 2023-01-07 05:20:00 Q572959018620nrlDCl8 JTfxk5YeD8rw4K5LGQNloD3F6zNIL HyAkLBbPKJLonLKuBB8KXYkZtGn8419-33-54K25:20:36666 3-0041 [place] [address] PATIENT NAME: MATHEW CASTILLO ADMIT DATE: 01/06/23ACCOUNT NO: [id number] ROOM NO: [facility] AGE: 62 REPORT TYPE: PROGRESS NOTE SEX: [...] 01/07/2023 05:20:31Date Transcribed: 01/07/2023 05:56:47 DORADO/Nicole #: [id number] ID: [id number] Authenticated and Edited by Skip Jaffe MD On 01/22/23 5:18:20 AM at 0520 PATIENT NAME: MATHEW CASTILLO tzkm1513-15-58B51:56:00G.IDF97062775-2023KBXyffkq ble for patient adwiUZWYDOMYPUQUMA0939-26-95U44:21:33 [facility] 2023-01-06 21:39:00 [id number]/Dl9a5D nVDf6J1k23rFTGZsyTx8bG3K+HZ27 jy6y7B10bSU1GL4FPK5Myvu9Uwi5066-41-22Z80:39:00 [facility] Prog. NoteREPORT#:[id number] REPORT STATUS: SignedREPORT INITIALIZATION DATE:01/06/23 TIME: 2138 PATIENT: MATHEW CASTILLO UNIT #: [id number]#: [id number] [address]: [address] AGE: 62 SEX: M ATTEND: Salinas Alba I [facility] AUTHOR: Sofia Cheng NPREPT SERVICE DT/TIME: 01/06/232138* ALL edits or amendments must be made on the electronic/computer document * SubjectiveChief complaint:HematuriaHPI:62-year-old male with last medical history of, BPH, s/p bladder lift yesterday by Dr. Jones transferred from [place] for urology evaluation secondary tohematuria after bladder irrigation failed. pt was seen and evaluated by Dr. 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 Last admitted to [facility] on 10/16/22 with urinary retention. Abnormal [...] MLSodium Chloride (SODIUM CHLORIDE 0.9%) 1,000 ML .L96P01E IV Sodium Chloride (SODIUM CHLORIDE 0.9%) 1,000 [...] (Auto) (14.0 - 32.0 %) 11.8 L Wilkes % (Auto) (4.8 - 9.0 %) 7.5 Eos % (Auto) (0.3 - 3.7 %) 3.2 Baso % (Auto) (0.0 - 2.0 %) 0.4 Neut # (Auto) (2.0 - 7.6 x10 3/uL) 7.43 Lymph # (Auto) (1.0 - 3.8 x10 3/uL) 1.14 Wilkes # (Auto) (0.1 - 0.8 x10 3/uL) [...] range of motion, normal sensory, normal motor functionNeuro/CLIENT RELATIONS REPRESENTATIVE: alert, oriented X 3Skin: dry, intact, no gross abnormalitiesPsychiatry: no hallucinations, normal affect, normal judgment/insight, normal mood, not homicidal, not suicidal Free Text DxA P NotesFree text DxA P notes:Assessment:62-year-old male with last medical history of, BPH, s/p bladder lift yesterday by Dr. Jones transferred from [place] for urology evaluation secondary tohematuria after bladder irrigation failed. pt was seen and evaluated by Dr. 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 Last admitted to [facility] on 10/16/22 with urinary retention.Abnormal labs: [...] electrolytesRepeat labsFurther recommendation based on patient's clinical vcshti7101/06/2023Vital signs within normal limitsBlood culture shows Enterococcus speciesUrine culture grows gram-negative teodoro-identification and sensitivity pendingHematuria is improved.Wean CBI as tolerated per uroContinue IV antibiotics Zosyn per ID, ceftriaxone is discontinuedStarted on Cogentin, still on tamsulosin.Monitor for further bleedingPain medications as neededFollow-up cultures, labs, continue medications and supportive care at 0015 at 0740 RPT #:[id number] OF REPORTPRProgress unsv9837-19-42D45:39:00G.VBWA24732632-3911REXxkym able for patient jbyiLZTLKMKCWUINNE5110-98-64G10:16:29 [facility] 2023-01-06 19:39:00 Z59123620523XoaO7QbD gHLgR4d6HfntOE8342tq27VqE16Rn PQ/I+tMVnwgY2bW9VGqe+2E4Fj10203-64-86A92:39:00 [facility] ([facility])Urology Progress NoteREPORT#:[id number] REPORT STATUS: SignedREPORT INITIALIZATION DATE:01/06/23 TIME: 1938 PATIENT: MATHEW CASTILLO UNIT #: [id number]#: [id number] [address] AGE: 62 SEX: M ATTEND: [...] (Auto) (14.0 - 32.0 %) 11.8 L Wilkes % (Auto) (4.8 - 9.0 %) 7.5 Eos % (Auto) (0.3 - 3.7 %) 3.2 Baso % (Auto) (0.0 - 2.0 %) 0.4 Neut # (Auto) (2.0 - 7.6 x10 3/uL) 7.43 Lymph # (Auto) (1.0 - 3.8 x10 3/uL) 1.14 Wilkes # (Auto) (0.1 - 0.8 x10 3/uL) [...] wean cbi as tolerated at 1941 RPT #:[id number] OF REPORTPRProgress tfhg2402-63-99Q14:39:00G.VOFZ85204364-9065DLTauii able for patient onaoPPRVQPDLJHSSNI1811-64-05G26:41:57 [facility] 2023-01-06 19:19:00 U75222934128ng5Gv9IV cxsnST8OE3dBRoFyzVjalFsAzDOtF FAiQUu4Pt4BEsqNEvoqgq+cVJTv9202-77-48U39:19:00 [facility] ([facility])Infectious Dis. Progress NoteREPORT#:[id number] REPORT STATUS: SignedREPORT INITIALIZATION DATE:01/06/23 TIME: 1918 PATIENT: ANNAMATHEW SINCERE UNIT #: [id number]#: [id number] [facility] AGE: 62 SEX: M ATTEND: Salinas [...] [place]. [place] [address] colony-forming units of the Gram-negative rods. Identification and susceptibility is pending. Keep the patient on IV Zosyn. at 0411 RPT #:[id number] OF REPORTPRProgress jdsl0223-12-84V82:19:00G.OBVV77715944-1539CCHcxps able for patient eodmJTTEXVKMASIIKN5786-84-99T14:11:25 [facility] 2023-01-06 17:40:00 O00049367948ZNRXoYrj 05JtlmosYIPNNd9+rv2mbhfZAKRr1 x+oRtwST6ofygsVYSJaQLhwQKdY7165-59-81S84:40:66194 2-[address] [address] PATIENT NAME: MATHEW CASTILLO ADMIT DATE: 01/06/23ACCOUNT NO: [id number] ROOM NO: [facility] AGE: 62 REPORT TYPE: CONSULTATION REPORT SEX: [...] October of 2022. The patient lives in [place] and he had an outpatient prostate procedure done by Dr. Dave Jones with UroLift on Friday01/03/2023 and was discharged home on the same day. The patient went back to [place]. However, subsequently, he started to notice ladan hematuria on Friday and had no other constitutional symptoms including fever or chills. The patient because of worsening hematuria decided to go to the hospital. He went to hospital in [place] and he was told to follow up [...] is single. He lives with his daughterjailene [place]. The patient has been a longtime smoker and continues to smoke. No history of IV drug use, alcohol use, or substance abuse. 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 On admission, [place] [address]. The patient had 2 blood cultures done. Urine culture is incubating. ASSESSMENT: The patient with multiple comorbidities including history of benignprostatic hypertrophy with previous episode of urinary retention requiring indwelling Black catheter placement has undergone an UroLift procedure on 01/03/2023, and subsequently was discharged on the same day; however, yesterday he started to have hematuria and was seen at a hospital in [place] and is transferred to [facility] for further Urology evaluation. 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, and he is empirically started on [...] Dictated: 01/06/2023 17:40:46Date Transcribed: 01/06/2023 21:28:36ESTRADA/Concepcion #: [id number] ID: [id number] by Skip Jaffe MD On 01/22/2023 05:17:37 AM at 0517 PATIENT NAME: MATHEW CASTILLO :28:00G.[place] K54336981-9870LRUwzogvfda for patient zwxiEQQQFTBKQMLPXE3742-94-38X74:18:03 [facility] 2023-01-05 23:00:00 B75023833099XcTcTtdW ilRhCVmuvpRLp4C2LLbVkxaHFzCcF 3pvRJX5qKVZBULpYV+A7K/BNcg22077-41-52T25:00:00 [facility] ([facility])Infect Disease Consult NoteREPORT#:[id number] REPORT STATUS: SignedREPORT INITIALIZATION DATE:01/05/23 TIME: 230 PATIENT: MATHEW CASTILLO UNIT #: [id number]#: [id number] ROOM/BED: X388-2FMX: 59 AGE: 62 SEX: M ATTEND: Salinas [...] Allergies:No Known Allergies (10/16/22) at 0526 RPT #:[id number] OF REPORTWRDwrudoygvitu3289-79-48Q94:00:00G.PDOC2 3904431-8420LWLkqavoewd for patient ikgjQTIHLLTCHJFSCU5122-09-35C66:27:03 [facility] 2023-01-05 13:05:00 [id number] pFSfJdIvsl8uSOMh48JZ/XX0mS2MR 2D3yAqyHd0S585IpjPNb4K3NDmO7152-02-00W94:05:00 [facility] ([facility])Urology Consult NoteREPORT#:[id number] REPORT STATUS: SignedREPORT INITIALIZATION DATE:01/05/23 TIME: 1305 PATIENT: MATHEW CASTILLO UNIT #: [id number]#: [id number] [facility] AGE: 62 SEX: M ATTEND: [place] [...] (Auto) (14.0 - 32.0 %) 4.5 L Wilkes % (Auto) (4.8 - 9.0 %) 6.1 Eos % (Auto) (0.3 - 3.7 %) 0.3 Baso % (Auto) (0.0 - 2.0 %) 0.2 Neut # (Auto) (2.0 - 7.6 x10 3/uL) 15.99 H Lymph # (Auto) (1.0 - 3.8 x10 3/uL) 0.82 L Wilkes # (Auto) (0.1 - 0.8 x10 3/uL) [...] (Auto) (14.0 - 32.0 %) 5.4 L Wilkes % (Auto) (4.8 - 9.0 %) 5.3 Eos % (Auto) (0.3 - 3.7 %) 0.0 L Baso % (Auto) (0.0 - 2.0 %) 0.2 Neut # (Auto) (2.0 - 7.6 x10 3/uL) 14.77 H Lymph # (Auto) (1.0 - 3.8 x10 3/uL) 0.90 L Wilkes # (Auto) (0.1 - 0.8 x10 3/uL) [...] pH (5.0 - 7.0) 7.0 Ur Specific [place] (1.005 - 1.030) 1.005 Urine Protein (NEGATIVE) [...] [facility] MD[facility] at 1312 RPT #:[id number] OF REPORTHUJdyxradfrdkb0344-76-08N90:05:00G.PDOC2 [id number] for patient btgjJVTRCFDQTVONPX1291-61-58Y96:12:53 [facility] 2023-01-05 11:34:00 [id number]/[id number] 30YyAEJqZrsyd9eAcqsmBPyVApGB6 vmnk+0upkilrwDjLuLracSQg7Ff5354-27-01O39:34:00 [facility] ([facility]History Physical - AdultREPORT#:[id number] REPORT STATUS: SignedREPORT INITIALIZATION DATE:01/05/23 TIME: 1133 PATIENT: MATHEW CASTILLO UNIT #: [id number]#: [id number] [address] AGE: 62 SEX: M ATTEND: [place] AUTHOR: Sofia Cheng NPREPT SERVICE DT/TIME: 01/05/23 1134* ALL edits or amendments must be made on the electronic/computer document * History of Present Illness HPIChief complaint:HematuriaHPI:62-year-old male with last medical history of, BPH, s/p bladder lift yesterday by Dr. Jones transferred from [place] for urology evaluation secondary tohematuria after bladder irrigation failed. pt was seen and evaluated by Dr. 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 [facility] admitted to [facility] on 10/16/22 with urinary retention. Abnormal [...] range of motion, normal sensory, normal motor functionNeuro/CLIENT RELATIONS REPRESENTATIVE: alert, oriented X 3Skin: dry, intact, no [...] (Auto) (14.0 - 32.0 %) 4.5 L Wilkes % (Auto) (4.8 - 9.0 %) 6.1 Eos % (Auto) (0.3 - 3.7 %) 0.3 Baso % (Auto) (0.0 - 2.0 %) 0.2 Neut # (Auto) (2.0 - 7.6 x10 3/uL) 15.99 H Lymph # (Auto) (1.0 - 3.8 x10 3/uL) 0.82 L Wilkes # (Auto) (0.1 - 0.8 x10 3/uL) [...] 0.1 x10 3/uL) 0.00 01/04 01/04 01/04 8980 214 2000 Chemistry Sodium (134 - 147 mEq/L) [...] (Auto) (14.0 - 32.0 %) 5.4 L Wilkes % (Auto) (4.8 - 9.0 %) 5.3 Eos % (Auto) (0.3 - 3.7 %) 0.0 L Baso % (Auto) (0.0 - 2.0 %) 0.2 Neut # (Auto) (2.0 - 7.6 x10 3/uL) 14.77 H Lymph # (Auto) (1.0 - 3.8 x10 3/uL) 0.90 L Wilkes # (Auto) (0.1 - 0.8 x10 3/uL) [...] pH (5.0 - 7.0) 7.0 Ur Specific [place] (1.005 - 1.030) 1.005 Urine Protein (NEGATIVE) [...] Report Impression - Status: SIGNED Entered: 01/04/2023 9637 IMPRESSION: 1. Prostatomegaly. Decompressed bladder with a Black in place.2. No hydronephrosis. No enhancing renal masses.3. Cholelithiasis and mildly distended gallbladder.4. Moderate hiatal hernia.Impression By: Nick Magaña M.D. Diagnosis, Assessment Plan Free Text DxA P NotesFree Text DxA P Notes:Assessment:62-year-old male with last medical history of, BPH, s/p bladder lift yesterday by Dr. Jones transferred from [place] for urology evaluation secondary tohematuria after bladder irrigation failed. pt was seen and evaluated by Dr. 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 Last admitted to [facility] on 10/16/22 with urinary retention. Abnormal [...] clinical course at 0055 at 0739 RPT #:[id number] OF REPORTHPHistory and physical pkgberygteu0383-14-13G97:34:00G.HQWW03712552-6494 AVAvailable for patient xmmqMOVDHJXVKGAIWE6227-38-25M70:55:31 [facility] 2023-01-05 01:59:00 [id number]/dF2kDsZ F74HEbEHrW4wR4mk+Q+58w4QZ86dl O3mHKpoadK6QPE7xBSXkBJIzGlV2752-73-68C23:59:00 [facility] ([facility])Clinical NoteREPORT#:[id number] REPORT STATUS: SignedREPORT INITIALIZATION DATE:01/05/23 TIME: 0159 PATIENT: MATHEW CASTILLO UNIT #: [id number]#: [id number] [address]DSI: [address] AGE: 62 SEX: M ATTEND: Salinas Alba I [facility] AUTHOR: Sofia Cheng NPREPT SERVICE DT/TIME: 01/05/23158* ALL edits or amendments must be made on the electronic/computer document * Clinical NoteNote:Clinical data reviewedOrders placed at 0222 RPT #:[id number] OF REPORTCLClinical grmm7531-55-96S98:59:00G.GLCB76051885-0050NQYjtkn able for patient hticUDTBQKCAALMEXM7613-67-08F99:22:53 [facility] 2023-01-04 20:02:00 [id number]+5KrlUg 0h9vppAbB6WsPdyuzkdHlhXBDHfq1 hlVR1z5GD4b4H8qJrz2ktKdi4/i1508-05-77I80:02:00 [facility] ([facility] PROVID[facility] REPORTREPORT#:[id number] REPORT STATUS: SignedDATE:01/04/23 TIME: 2001 PATIENT: MATHEW CASTILOL UNIT #: [id number]#: [id number] [address]H534-5JDB: 62 SEX: M PCP PHYS: Lakhwinder Guillermo [...] SOB. 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 Tachycardic [...] DecisionHospitalize Hosp Physician Name Salinas Alba MD [facility] Physician Hospitalist Request Time 34 [...] MidLv Saw Pt AloneI have reviewed the PA/ASSEMBLER FAUCETS's note and plan of care. I was available for consultation as needed at all times during the patient's visit in the emergency department. I agree with the clinical impression, plan and disposition. at 2148 at 0552RPT #:[id number] OF REPORTEDProv[facility] department bjsjtx2476-54-29K09:02:00G.IWVZ31410038-3265JSVhv ilable for patient ianuQYFGHSJSKFDWVC3211-27-49W00:48:19 [facility] 2022-11-19 18:14:00 [id number]/HZ a9/I7hK3ReDW9RyRUpkWYdh7iN4Dt DGj+Wqy7Z0Z1ikVmYjv0MtvmZHC9693-51-26T78:14:00 [facility] ([facility])Discharge SummaryREPORT#:[id number] REPORT STATUS: SignedDATE:11/19/22 TIME: 1813 PATIENT: MATHEW CASTILLO UNIT #: [id number]#: [id number] [address] AGE: 62 SEX: M ATTEND: [...] last medical history of, BPH, transferred from [place] for urology evaluation and treatment secondary to [...] range of motion, normal sensory, normal motor functionNeuro/CLIENT RELATIONS REPRESENTATIVE: alert, oriented X 3Skin: dry, intact, no [...] Care Discharge InstructionsAdditional Discharge Routines: PCP Follow-Up, Mix Crusher Operator Follow-Up)( Diet: Regular Follow-up AppointmentsPCP follow up: PCP: Yumiko Geller MD PCP follow up timeframe: In 5 days Special instructions:CAN FU WITH OWN PCPAttending Physician: Attending Physician: Salinas Alba MD Attending physician follow up timeframe: In 1-2 weeks Special instructions:CALL TO SCHEDULE AN APPOINTMENTConsulting provider 1: Provider 1: Dave Jones MD Specialty: Urology Special instructions:FOR REMOVAL OF BLACK at [address] [facility] #:[id number] OF REPORTDSDischarge jouqhsx3322-84-17Y34:14:00G.TYJI80951746-2193VJXs ailable for patient tgibTKIELMPZMAESVE8375-52-11O03:32:51 [facility] 2022-10-26 20:52:00 [id number] aoXbrOo+EnndJQNmPtDOQuMp+1/fm 64Q0R3XvqeyMD4Hty1FRkREoXTD2545-49-71Z63:52:[address] [place], [place] [address] PATIENT NAME: MATHEW CASTILLO ADMIT DATE: 10/16/22ACCOUNT NO: [id number] ROOM NO: [facility] AGE: 62 REPORT TYPE: PROGRESS NOTE SEX: [...] Emergency Room where he was transferred from [place] with acuteurinary retention. He had 3 liters [...] Dictated: 10/26/2022 20:52:41Date Transcribed: 10/26/2022 21:14:58HA/JORGE/Marine #: [id number] ID: [id number] Authenticated and Edited by Skip Jaffe MD On 11/02/22 2:24:00 AM at 0323 PATIENT NAME: MATHEW CASTILLO qfxk1060-16-19O37:14:00G.SWT08706732-0331XLGqjxkw ble for patient rpxgSVQKKBOTBTAXST0270-69-49W60:24:01 [facility] 2022-10-26 19:14:00 [id number] mvPrmHgnSHHIRtkCdCvU1Io6UVghD 7T2VdwQjYGJSKbrPZ2bWdAW3rE67144-51-85U84:14:00 [facility])Internal Medicine Prog. NoteREPORT#:[id number] REPORT STATUS: SignedDATE:10/26/22 TIME: 1913 PATIENT: MATHEW CASTILLO UNIT #: [id number]#: [id number] [address] [birth year] AGE: 62 SEX: M ATTEND: Salinas Alba I [facility] AUTHOR: Sofia Cheng ASSEMBLER FAUCETS * ALL edits or amendments must be made on the electronic/computer document * SubjectiveChief complaint:Abdominal distention, hydronephrosisHPI:62-year-old male with last medical history of, BPH, transferred from [place] for urology evaluation and treatment secondary to [...] range of motion, normal sensory, normal motor functionNeuro/CLIENT RELATIONS REPRESENTATIVE: alert, oriented X 3Skin: dry, intact, no gross abnormalitiesPsychiatry: no hallucinations, normal moodProblem List/A P: 1. Rupture of ureter Free Text DxA P NotesFree text DxA P notes:Assessment:62-year-old male with last medical history of, BPH, transferred from [place] for urology evaluation and treatment secondary to [...] neededRepeat labsFurther recommendation based on patient's clinical qnlwex7110/17/2022Vital signs within normal limitsHypokalemia 3.2, hypomagnesemia 1.50Renal [...] controlFollow-up electrolytes and labs, continue medications and mzecwsr1010/22/2022Vital signs within normal limits, POC glucose is [...] explained to patient's daughterContinue with current medicationsFall wugdfbaftd51/20/2023Stable, POC glucose 154Patient with Black to gravity, [...] supportive care at 2225 at 0830 RPT #:[id number] OF REPORTPRProgress vlib2417-19-66N71:14:00G.XXBL97987836-1223ZKFtpfn able for patient jyefEGHEPBQQXUTFUS0650-34-48A04:25:27 [facility] 2022-10-26 13:41:00 [id number] qRbnbvlxD6tt2RvOpK5wsn1jD7skh LAz11BELcdCOToj2jJJ1vdy3L5q6191-22-52S32:41:00 [facility]Neph[facility] Progress NoteREPORT#:[id number] REPORT STATUS: SignedDATE:10/26/22 TIME: 134 PATIENT: MATHEW CASTILLO UNIT #: [id number]#: [id number] [address] [birth year] AGE: 62 SEX: M ATTEND: [...] urine in his bladder. CT abdomen from [place] showed that the patient has a very [...] urine in his bladder. CT abdomen from [place] showed that the patient has a very [...] above A/P at 1342 at 1813 RPT #:[id number] OF REPORTPRProgress hrbz2211-52-20T23:41:00G.ARQE75833159-9466FZSrcxd able for patient ibhhIZCADQMWQOPZVD5791-72-47B41:42:46 [facility] 2022-10-25 21:28:00 [id number] 5+jDJgAqpsB3R5BCVDFrzAM94z+y5 O6HRRYRVkfSNXuaAp42cp0yi2rD7563-37-23H29:28:00 [facility] ([facility])Infectious Dis. Progress NoteREPORT#:[id number] REPORT STATUS: SignedDATE:10/25/22 TIME: 2127 PATIENT: MATHEW CASTILLO UNIT #: [id number]#: [id number] ROOM/BED: 6630-1DOB: [birth year] AGE: 62 SEX: M ATTEND: Salinas Alba I [facility] AUTHOR: Skip Jaffe MD * ALL [...] new nosocomial acquired infection. at 0256 RPT #:[id number] OF REPORTPRProgress ppzy6202-78-62K48:28:00G.ILKE52987728-5653JXDnuag able for patient xdmrAPFFFHFAKQGYHF6171-50-10Y73:57:01 [facility] 2022-10-25 19:13:00 [id number] 8i63alxNidvOITaZKX56au/nZAFaW zRjOXuq/imvwTKn13aIZ8HNkhf46093-68-65C07:13:00 [facility] ([facility]ENephrology Progress NoteREPORT#:[id number] REPORT STATUS: SignedDATE:10/25/22 TIME: 1912 PATIENT: MATHEW CASTILLO UNIT #: [id number]#: [id number] [address] [birth year] AGE: 62 SEX: M ATTEND: Salinas Alba I [facility] AUTHOR: Toby Koehler MD * ALL [...] (Auto) (14.0 - 32.0 %) 10.6 L Wilkes % (Auto) (4.8 - 9.0 %) 4.4 L Eos % (Auto) (0.3 - 3.7 %) 2.4 Baso % (Auto) (0.0 - 2.0 %) 0.5 Neut # (Auto) (2.0 - 7.6 x10 3/uL) 12.30 H Lymph # (Auto) (1.0 - 3.8 x10 3/uL) 1.60 Wilkes # (Auto) (0.1 - 0.8 x10 3/uL) [...] urine in his bladder. CT abdomen from [place] showed that the patient has a very [...] urine in his bladder. CT abdomen from [place] showed that the patient has a very [...] abx per primary team. at 1914 RPT #:[id number] OF REPORTPRProgress yoyp1270-56-94L46:13:00G.JXSM96223290-4164SQJiagp able for patient blyrMHYYOADZUWPHRE1506-56-42I93:14:52 [facility] 2022-10-25 19:12:00 [id number] qZD1Ncr/gJFjZ67QLabfrnmcTc0IU uhfxA2qY2bu9Nq5xpr9BGfhYdqB8900-06-34M28:12:00 [facility])Internal Medicine Prog. NoteREPORT#:[id number] REPORT STATUS: SignedDATE:10/25/22 TIME: 1911 PATIENT: MATHEW CASTILLO UNIT #: [id number]#: [id number] [place]BED[facility]DOB: [birth year] AGE: 62 SEX: M ATTEND: Salinas Alba I [facility] AUTHOR: Sofia Cheng NP * ALL edits or amendments must be made on the electronic/computer document * SubjectiveChief complaint:Abdominal distention, hydronephrosisHPI:62-year-old male with last medical history of, BPH, transferred from [place] for urology evaluation and treatment secondary to [...] (Auto) (14.0 - 32.0 %) 10.6 L Wilkes % (Auto) (4.8 - 9.0 %) 4.4 L Eos % (Auto) (0.3 - 3.7 %) 2.4 Baso % (Auto) (0.0 - 2.0 %) 0.5 Neut # (Auto) (2.0 - 7.6 x10 3/uL) 12.30 H Lymph # (Auto) (1.0 - 3.8 x10 3/uL) 1.60 Wilkes # (Auto) (0.1 - 0.8 x10 3/uL) [...] range of motion, normal sensory, normal motor functionNeuro/CLIENT RELATIONS REPRESENTATIVE: alert, oriented X 3Skin: dry, intact, no gross abnormalitiesPsychiatry: no hallucinations, normal moodProblem List/A P: 1. Rupture of ureter Free Text DxA P NotesFree text DxA P notes:Assessment:62-year-old male with last medical history of, BPH, transferred from [place] for urology evaluation and treatment secondary to [...] neededRepeat labsFurther recommendation based on patient's clinical onhtbi1410/17/2022Vital signs within normal limitsHypokalemia 3.2, hypomagnesemia 1.50Renal [...] controlFollow-up electrolytes and labs, continue medications and bylptcy9810/22/2022Vital signs within normal limits, POC glucose is [...] explained to patient's daughterContinue with current medicationsFall eglskdidon79/20/2023Stable, POC glucose 154Patient with Black to gravity, [...] supportive care at 2224 at 0830 RPT #:[id number] OF REPORTPRProgress ddjn5969-24-51V71:12:00G.UWRU26897801-9224TCPszkf able for patient fugaZICEAHPVCXKESK5758-84-08P07:24:26 [facility] 2022-10-25 10:44:00 [id number] dJMach6W1hpsIdDP2+eWDLi1q1yXi OQd3o+ZB/BIITJ47Fl25Pz5JyFo7745-33-48L33:44:429[address] 1-[address] [place] [address] PATIENT NAME: MATHEW CASTILLO ADMIT DATE: 10/16/22ACCOUNT NO: [id number] ROOM NO: G.6630 AGE: 62 REPORT TYPE: [...] admitted through Emergency Roominitially to hospital in [place] with urinary retention of 2 days' durationand [...] Dictated: 10/25/2022 10:44:58Date Transcribed: 10/25/2022 11:24:45HA/Yulisa #: [id number] ID: [id number] Authenticated and Edited by Skip Jaffe MD On 11/02/22 2:23:50 AM at 0323 PATIENT NAME: MATHEW CASTILLO rodx4069-16-61B69:24:00G.RYV72436208-0453JOWviqzq ble for patient kctmRNSFOXFSMXNJZN1529-48-83Q46:24:12 [facility] 2022-10-24 22:59:00 [id number] iu4vjkJ5DZNT2uutoU+H4uHDz9hEu 0Gaj6KS5B2tH9crt042r8Og+KAg2686-53-47R49:59:00 [facility])Internal Medicine Prog. NoteREPORT#:[id number] REPORT STATUS: SignedDATE:10/24/22 TIME: 2258 PATIENT: MATHEW CASTILLO UNIT #: [id number]#: [id number] [address] [birth year] AGE: 62 SEX: M ATTEND: Salinas Alba I [facility] AUTHOR: Sofia Chegn NP * ALL edits or amendments must be made on the electronic/computer document * SubjectiveChief complaint:Abdominal distention, hydronephrosisHPI:62-year-old male with last medical history of, BPH, transferred from [place] for urology evaluation and treatment secondary to [...] range of motion, normal sensory, normal motor functionNeuro/CLIENT RELATIONS REPRESENTATIVE: alert, oriented X 3Skin: dry, intact, no gross abnormalitiesPsychiatry: no hallucinations, normal moodProblem List/A P: 1. Rupture of ureter Free Text DxA P NotesFree text DxA P notes:Assessment:62-year-old male with last medical history of, BPH, transferred from [place] for urology evaluation and treatment secondary to [...] large amount of urinary retention -Status post Lback insertion large amount of urine was obtained2. Acute kidney injury3. Hypokalemia/hypocalcemia, hyperchloremia4. Metabolic acidosis5. Possible BPH6. Severe bilateral hydronephrosis7. Hypertension8. Schizophrenia Plan of care:Admit patient for further evaluation and treatmentUrology consultation in placeKeep Black to bedside drainageI's and O'sMonitor renal functionNephrology consultationReplace electrolytesStart tamsulosinBicarb drip startedRepeat CT of the abdomen and pelvis if neededRepeat labsFurther recommendation based on patient's clinical yyjaxy5710/17/2022Vital signs within normal limitsHypokalemia 3.2, hypomagnesemia 1.50Renal [...] controlFollow-up electrolytes and labs, continue medications and ymghshu6810/22/2022Vital signs within normal limits, POC glucose is [...] explained to patient's daughterContinue with current medicationsFall lbrdrbcteu84/20/2023Stable, POC glucose 154Patient with Black to gravity, tolerating p.o. intakeNephro is following. On tamsulosin p.o.Continue pain control, glycemic control, fall precautionContinue medications and present care at 2223 at 0830 RPT #:[id number] OF REPORTPRProgress jwdj0874-00-37T08:59:00G.ZAIQ57056284-3080GGXyqqs able for patient xtvdLDBUDDBAFHHHNZ8538-57-13S46:24:17 [facility] 2022-10-24 19:41:00 [id number] kwPK7OWu/7apuZY/FcRuwrEx06mPe Fy0CLHBGBy1NtnPDtuBoP3bO95U5473-26-54P63:41:00 [facility] ([facility])Infectious Dis. Progress NoteREPORT#:[id number] REPORT STATUS: SignedDATE:10/24/22 TIME: 1940 PATIENT: MATHEW CASTILLO UNIT #: [id number]#: [id number] ROOM/BED: 6630-1DOB: [birth year] AGE: 62 SEX: M ATTEND: Salinas Alba I [facility] AUTHOR: Skip Jaffe MD * ALL [...] closely for any diarrhea. at 0316 RPT #:[id number] OF REPORTPRProgress tfxd5402-80-91G67:41:00G.SNPQ66696740-4792TNUggvd able for patient ivwwEJFWOMDPBGIZTS9608-28-37A21:16:37 [facility] 2022-10-24 19:12:00 [id number] 1b0FQZ857KfLgGdl8+nSXnzIFjnKL PVyhy4inlObCHa5QSJtUe3lTmQf2623-88-86W63:12:07095 0-[address] [address] PATIENT NAME: MATHEW CASTILLO ADMIT DATE: 10/16/22ACCOUNT NO: [id number] ROOM NO: 6630 AGE: 62 REPORT TYPE: [...] sodium is 138, potassium 3.8, chloride 107, fbjmlocnhco60, glucose 98. BUN 11, creatinine 1.0, estimated [...] medical problems was initiallyadmitted to hospital in [place] where he had presented with urinaryretention. The patient was found to have 3 liters of urine in the bladder. Hehad a Black catheter inserted and subsequently was transferred to [facility] for urology evaluation. He was initially [...] Dictated: 10/24/2022 19:12:07Date Transcribed: 10/24/2022 19:51:44HA/Concepcion #: [id number] ID: [id number] Authenticated and Edited by Skip Jaffe MD On 11/02/22 2:23:34 AM at 0323 PATIENT NAME: MATHEW CASTILLO ohid3797-49-31X02:51:00G.VBV62836731-7116NVUcdqbp ble for patient aiwgJZAUASEKHZMDPH2498-33-45Q01:24:12 [facility] 2022-10-24 16:08:00 [id number] sRCB5BVDH0OuhE/sMaFTNPE/[place]/s f3STW/nosHr8ivGgKSDEFqZN7T84700-86-41W29:08:00 [facility] ([facility])Nephrology Progress NoteREPORT#:[id number] REPORT STATUS: SignedDATE:10/24/22 TIME: 160 PATIENT: MATHEW CASTILLO UNIT #: [id number]#: [id number] [address] [birth year] AGE: 62 SEX: M ATTEND: Salinas Alba I [facility] AUTHOR: Carmen Kemp * ALL edits [...] urine in his bladder. CT abdomen from [place] showed that the patient has a very [...] urine in his bladder. CT abdomen from [place] showed that the patient has a very [...] above A/P at 1740 at 2124 RPT #:[id number] OF REPORTPRProgress ecyf7146-85-32W52:08:00G.USKB98269454-0482UPDbmoh able for patient zthaSDWBYPFSCBBUGO8896-51-11W45:40:54 [facility] 2022-10-23 21:33:00 [id number] keC0Oh8Gq1wjIJLeAZZsYANFkaUEp 2RIGccfy1KItaRacMg3ssYlJLTx3259-78-71F98:33:00 [facility] Prog. NoteREPORT#:[id number] REPORT STATUS: SignedDATE:10/23/22 TIME: 2132 PATIENT: MATHEW CASTILLO UNIT #: [id number]#: [id number] [address] [birth year] AGE: 62 SEX: M ATTEND: Salinas Alba MDA AUTHOR: Sofia Cheng NP * ALL edits or amendments must be made on the electronic/computer document * SubjectiveChief complaint:Abdominal distention, hydronephrosisHPI:62-year-old male with last medical history of, BPH, transferred from [place] for urology evaluation and treatment secondary to [...] range of motion, normal sensory, normal motor functionNeuro/CLIENT RELATIONS REPRESENTATIVE: alert, oriented X 3Skin: dry, intact, no gross abnormalitiesPsychiatry: no hallucinations, normal moodProblem List/A P: 1. Rupture of ureter Free Text DxA P NotesFree text DxA P notes:Assessment:62-year-old male with last medical history of, BPH, transferred from [place] for urology evaluation and treatment secondary to [...] neededRepeat labsFurther recommendation based on patient's clinical ozradm6210/17/2022Vital signs within normal limitsHypokalemia 3.2, hypomagnesemia 1.50Renal [...] controlFollow-up electrolytes and labs, continue medications and carmcap6910/22/2022Vital signs within normal limits, POC glucose is [...] medicationsFall precaution at 0250 at 0842 RPT #:[id number] OF REPORTPRProgress yurp0063-09-26T76:33:00G.DLOY10817960-6358HVDttgy able for patient eeccALHUEMTZVDYEKK2822-24-01O77:51:16 [facility] 2022-10-23 18:51:00 [id number] qPfiY0R27uONS6oBwONBJav8m/gJ1 LgStbbeqIlqNQ6hV5kzsiRkqWQB5960-58-24N72:51:00 [facility] ([facility])Infectious Dis. Progress NoteREPORT#:[id number] REPORT STATUS: SignedDATE:10/23/22 TIME: 1850 PATIENT: MATHEW CASTILLO UNIT #: [id number]#: [id number] [address] [birth year] AGE: 62 SEX: M ATTEND: [...] closely for any diarrhea. at 0256 RPT #:[id number] OF REPORTPRProgress ciga2760-67-65L47:51:00G.GDZW08292215-5929CBVrozj able for patient oxpuIQAPVDDABDSGEJ8286-46-55M80:56:58 [facility] 2022-10-23 18:27:00 [id number] cdiA9SOSqQuXtzG1YSAmD4q8dTqKx +GWEODsGHm6hoDrLDW24+hf8N+o8836-50-32C52:27:82403 [address] [place] [address] PATIENT NAME: MATHEW CASTILLO ADMIT DATE: 10/16/22ACCOUNT NO: [id number] ROOM NO: G.6630 AGE: 62 REPORT TYPE: [...] sodium is 139, potassium 4.0, chloride 107, qxsitfdbuoq88, glucose 102, BUN 12, creatinine 1.1, estimated GFR is 75.4, calcium is 7.8,magnesium is 1.72. Blood cultures x2 are negative so far at 48 hours ofincubation. PATIENT NAME: MATHEW CASTILLO ASSESSMENT AND PLAN: The patient with multiple medical problems was initiallyadmitted through the Emergency Room where he was transferred from [facility] because of urinary retention. 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 10/20/2022, and at that time, hehad [...] 10/23/2022 18:27:31Date Transcribed: 10/23/2022 18:54:06 ESTRADA/Concepcion #: [id number] ID: [id number] Authenticated and Edited by Skip Jaffe MD On 11/02/22 2:23:13 AM at 0225 PATIENT NAME: MATHEW CASTILLO ogoa9931-70-28J25:54:00G.ISX04994777-8762NPZkmciv ble for patient bqwfSIJREHSWVKDVMU1857-93-73S45:25:49 [facility] 2022-10-23 13:24:00 [id number] wVueByvHNd6tiFygWwyfDotvSp1P/ 9+WcZyYijickWKdqxIF94y0acqI8640-68-88X72:24:00 [facility] ([facility]ENeph[facility] Progress NoteREPORT#:[id number] REPORT STATUS: SignedDATE:10/23/22 TIME: 132 PATIENT: MATHEW CASTILLO UNIT #: [id number]#: [id number] [address] [birth year] AGE: 62 SEX: M ATTEND: [place] [facility] AUTHOR: Carmen Kemp * ALL edits [...] urine in his bladder. CT abdomen from [place] showed that the patient has a very [...] urine in his bladder. CT abdomen from [place] showed that the patient has a very [...] agree with above A/P at 1741 at 8895 RPT #:[id number] OF REPORTPRProgress ihpm1315-84-81G24:24:00G.XAOW16231444-2526GIXcpau able for patient pkkhVPRZOLEESCLUCL3100-76-38I59:42:17 [facility] 2022-10-22 18:32:00 [id number] dPEzpl5pD5gfQRdpk2WilssjyzLew iZebN2RXJY+aDyp/DYzTrFMl6lE9751-04-71F94:32:00 [facility] ([facility])Infectious Dis. 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 Remains afebrile at the present time. [...] IV antibiotics for now. at 0219 RPT #:[id number] OF REPORTPRProgress alrg9841-11-09Q35:32:00G.MWWZ74274101-2562DMDkrjg able for patient rsmhXGPXQLZOYFVCTA5717-82-66V50:19:49 [facility]L 2022-10-22 18:20:00 [id number] S9ugC80rfn7gyAX7bOF4k694FrxgQ uHymdgEutnVZ9E0MSo8LZJPVfa57872-52-21J38:20:23369 8-[address] [place] [address] PATIENT NAME: MATHEW CASTILLO ADMIT DATE: 10/16/22ACCOUNT NO: [id number] ROOM NO: G.6630 AGE: 62 REPORT TYPE: [...] comorbidities, [facility]. The patient has a [...] and had been doing fairly well until business office specialist yesterday when hestarted to have fever of [...] Dictated: 10/22/2022 18:20:30Date Transcribed: 10/22/2022 19:52:40/Trina #: [id number] ID: [id number] Authenticated and Edited by Skip Jaffe MD On 11/02/22 2:22:51 AM at 0323 PATIENT NAME: MATHEW CASTILLO qtud9856-29-13V30:52:00G.QNB59309549-7091PNTlvodc ble for patient kscyLFRTWZFKDXCHUI6165-15-81O59:24:12 [facility] 2022-10-22 18:15:00 [id number]/hYJ6AQ Z2VKhhkBztlU23mv++sE1MhBYQuxF mdYBIWqpidHRkaiKD1xiq3Iq96V9035-15-01P25:15:00 [facility] ([facility])Internal Medicine Prog. NoteREPORT#:[id number] REPORT STATUS: SignedDATE:10/22/22 TIME: 1814 PATIENT: YUKI CASTILLORELL SINCERE UNIT #: [id number]#: [id number] ROOM/BED: [address]: [birth year] AGE: 62 SEX: M ATTEND: Fernandamicah DukesSalinas Jacqui [facility] AUTHOR: Sofia Cheng NP * ALL edits or amendments must be made on the electronic/computer document * SubjectiveChief complaint:Abdominal distention, hydronephrosisHPI:62-year-old male with last medical history of, BPH, transferred from [place] for urology evaluation and treatment secondary to [...] range of motion, normal sensory, normal motor functionNeuro/CLIENT RELATIONS REPRESENTATIVE: alert, oriented X 3Skin: dry, intact, no gross abnormalitiesPsychiatry: no hallucinations, normal moodProblem List/A P: 1. Rupture of ureter Free Text DxA P NotesFree text DxA P notes:Assessment:62-year-old male with last medical history of, BPH, transferred from [place] for urology evaluation and treatment secondary to [...] neededRepeat labsFurther recommendation based on patient's clinical vlxpuq4310/17/2022Vital signs within normal limitsHypokalemia 3.2, hypomagnesemia 1.50Renal [...] controlFollow-up electrolytes and labs, continue medications and otsxinn8310/22/2022Vital signs within normal limits, POC glucose is controlledHypocalcemia 7.8, hypomagnesemia 1.72No sonographic evidence for DVTBlood culture shows no growth after 48 hoursPatient with good urine output, renal function is improved, patient will follow-up as an outpatientStill on IV antibiotic Zosyn, tamsulosin p.o.Continue electrolyte control-replace magnesiumContinue pain control, glycemic controlFollow-up labs, continue medications and supportive care at 0314 at 0842 RPT #:[id number] OF REPORTPRProgress spxe6495-20-10G70:15:00G.MBHJ06316536-9330CXQznwz able for patient opxlCNEGMUTBUFMTIN3867-25-44L79:14:38 [facility] 2022-10-22 09:31:00 [id number] j/aXNq1fYX7zjddJzbiCldFTQgctY lk00Cd6Ev4BHzUezRdtZPd9yp6y6730-18-35J40:31:00 [facility] ([facility])Nephrology Progress NoteREPORT#:[id number] REPORT STATUS: SignedDATE:10/22/22 TIME: 930 PATIENT: MATHEW CASTILLO UNIT #: [id number]#: [id number] [place] [facility]DOB: [birth year] AGE: 62 SEX: M ATTEND: Salinas Alba I [facility] AUTHOR: Carmen Kemp * ALL edits [...] urine in his bladder. CT abdomen from [place] showed that the patient has a very [...] urine in his bladder. CT abdomen from [place] showed that the patient has a very [...] patient's nurse, and . Toby Koehler 10/22/22 8482:Attestations Physician AttestationReviewed findings plan:Patient examined Renal function improved and wnl, black to gravity, -2/2 post-obstrucitve uropathy, replace electrolytes as needed, agree with aboveA/P at 1842 at 2220 RPT #:[id number] OF REPORTPRProgress trgl9518-91-52Y76:31:00G.RETD47375324-4488RZFqqzk able for patient hgokPJHMCKGZZCOYJW5740-86-41N78:42:25 [facility] 2022-10-21 20:48:00 I10534759649fQ31+6U6 VsQHs5ks/0EzHEAkrJxm/DYHjvyDQ 72aE8/nxy2Owvx+7JS9mJP+IW8+6114-29-50U20:48:00 [facility] Prog. NoteREPORT#:[id number] REPORT STATUS: SignedDATE:10/21/22 TIME: 2047 PATIENT: MATHEW CASTILLO UNIT #: [id number]#: [id number] [address] [birth year] AGE: 62 SEX: M ATTEND: Salinas Alba I [facility] AUTHOR: Sofia Cheng NP * ALL edits or amendments must be made on the electronic/computer document * SubjectiveChief complaint:Abdominal distention, hydronephrosisHPI:62-year-old male with last medical history of, BPH, transferred from [place] for urology evaluation and treatment secondary to [...] range of motion, normal sensory, normal motor functionNeuro/CLIENT RELATIONS REPRESENTATIVE: alert, oriented X 3Skin: dry, intact, no gross abnormalitiesPsychiatry: no hallucinations, normal moodProblem List/A P: 1. Rupture of ureter Free Text DxA P NotesFree text DxA P notes:Assessment:62-year-old male with last medical history of, BPH, transferred from [place] for urology evaluation and treatment secondary to [...] neededRepeat labsFurther recommendation based on patient's clinical nqkstx8510/17/2022Vital signs within normal limitsHypokalemia 3.2, hypomagnesemia 1.50Renal [...] and present at 0104 at 1009 RPT #:[id number] OF REPORTPRProgress ules0047-84-56V24:48:00G.CJAG95771645-8902VVXbzhq able for patient vvaxWQQVSQYEYEOWIC4261-41-37B85:04:19 [facility] 2022-10-21 19:01:00 [id number] 4/uy1kb4aExcByfHMFlB+xzgK8AKC 8xllO4N5+dc9mjASdJwTX0Xi9XI0282-89-56C07:01:00 [facility] ([facility])Infectious Dis. Progress NoteREPORT#:[id number] REPORT STATUS: SignedDATE:10/21/22 TIME: 1900 PATIENT: MATHEW CASTILLO UNIT #: [id number]#: [id number] [address] [birth year] AGE: 62 SEX: M ATTEND: Salinas Alba I [facility] AUTHOR: Skip Jaffe MD * ALL [...] Discussed with Skylar MENDIOLA. at 0242 RPT #:[id number] OF REPORTPRProgress raxv6382-17-13P22:01:00G.HPMR40458687-4915IPTtsju able for patient slptSSKSZDJAMDMDJN3875-85-15K98:42:47 [facility] 2022-10-21 11:23:00 [id number] B+jGNdZ5f1EupNiaSqLl2zel3XpMr VUB5e0D0/GFC5w/fYGJFRZyJOut8960-51-46K91:23:00 [facility] ([facility]ph[facility] Progress NoteREPORT#:[id number] REPORT STATUS: SignedDATE:10/21/22 TIME: 1123 PATIENT: MATHEW CASTILLO UNIT #: [id number]#: [id number] [address] [birth year] AGE: 62 SEX: M ATTEND: Salinas Alba I [facility] AUTHOR: Carmen Kemp * ALL edits [...] urine in his bladder. CT abdomen from [place] showed that the patient has a very [...] urine in his bladder. CT abdomen from [place] showed that the patient has a very [...] above A/P at 1640 at 2055 RPT #:[id number] OF REPORTPRProgress ghol5069-15-25D10:23:00G.HOMV48170235-2359YESzvoe able for patient lhtvJKTZPRWVXSFLQC0114-42-27R96:40:19 [facility] 2022-10-21 03:59:00 [id number]+N FfQaR9neHYBJS9MEWXsoaTZPZPvuM fuqYxRsqsmm149LxV3BDLYzw5F72562-18-19V36:59:[address] [place], [place] [address] PATIENT NAME: MATHEW CASTILLO ADMIT DATE: 10/16/22ACCOUNT NO: [id number] ROOM NO: [facility] AGE: 62 REPORT TYPE: CONSULTATION REPORT SEX: [...] who was initially admitted to hospital in [place] where he presented with acute urinary retention. 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 Denies any nausea, vomiting or diarrhea. Denies any chest pain, cough, expectoration, or shortness of breath. He continues to have a Black catheter in place and admits to having suprapubic areasoreness and pain, however, states that the pain and soreness he had at the timeof presentation to the [facility] has resolved. Denies any joint pains. 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 IMPRESSION: The patient with multiple comorbidities including history of schizophrenia and benign prostatic hypertrophy with worsening urinary difficulties for last over 2 years, was admitted through emergency room where [facility]was [facility] because of need for urology evaluation. The [...] to 37.8 degrees Celsius last night and business office specialist and had developed marked leukocytosis. Clinically, he [...] Dictated: 10/21/2022 03:59:46Date Transcribed: 10/21/2022 04:40:04ESTRADA/Annelise #: [id number] ID: [id number] by Skip Jaffe MD On 11/02/2022 02:22:37 AM at 0222 PATIENT NAME: YUKI CASTILLORELL SINCERE :40:00G.[place] [id number] for patient mzxgSXRGULPNQZJAGZ7967-76-68G43:23:17 [facility] 2022-10-20 20:34:00 [id number] AJVbDpKOE1/qI76SMD4plvIKWX9fb DMhnobe+FZlZRcS3p3xZgNv1JLw7053-10-62M08:34:00 [facility] ([facility])Nephrology Progress NoteREPORT#:[id number] REPORT STATUS: SignedDATE:10/20/22 TIME: 2033 PATIENT: MATHEW CASTILLO UNIT #: [id number]#: [id number] ROOM/BED: 6630-1DOB: [birth year] AGE: 62 SEX: M ATTEND: Salinas Alba I [facility] AUTHOR: Toby Koehler MD * ALL [...] - 32.0 %) 9.5 L 7.3 L Wilkes % (Auto) (4.8 - 9.0 %) 7.2 7.5 Eos % (Auto) (0.3 - 3.7 %) 2.6 2.2 Baso % (Auto) (0.0 - 2.0 %) 0.4 0.3 Neut # (Auto) (2.0 - 7.6 x10 3/uL) 13.75 H 15.38 H Lymph # (Auto) (1.0 - 3.8 x10 3/uL) 1.67 1.40 Wilkes # (Auto) (0.1 - 0.8 x10 3/uL) [...] Report Impression - Status: SIGNED Entered: 10/20/2022 0218 IMPRESSION: Mild interstitial pulmonary edema. No focal consolidation. Impression By: [email or web address] - Reinaldo Jacobs M.D. Diagnosis, Assessment PlanFree Text A P:Assessment and Plan: CHANDRA (Resolved)-Renal function improved and wnl, black to gravity, on bicarb gtt, will d/c now.-2/2 post-obstrucitve uropathy, monitor for post-obstructive diuresis. -UA, urine lytes requested-Per Urology note: Reportedly the patient had 3L of urine in his bladder. CT abdomen from [place] showed that the patient has a very [...] urine in his bladder. CT abdomen from [place] showed that the patient has a very [...] IV hydralazine Schizophrenia-Home medications resumed at 2150 [facility] #:[id number] OF REPORTPRProgress tddy8371-32-36Q65:34:00G.VZEV45287756-0839IFQbmps able for patient uwjcZZVFFTFELNKGTW3372-73-31J75:50:59 [facility] 2022-10-20 18:11:00 [id number] LIPH54ILkIAkkan9c2ozVRi/7B3qc ESyMXYun+vi47RxfaqeDvGwrYz59280-18-76V69:11:00 [facility] ([facility])Internal Medicine Prog. NoteREPORT#:[id number] REPORT STATUS: SignedDATE:10/20/22 TIME: 1810 PATIENT: MATHEW CASTILLO UNIT #: [id number]#: [id number] ROOM/BED: G.6630-1DOB: [birth year] AGE: 62 SEX: M ATTEND: Salinas Alba I [facility] AUTHOR: Sofia Cheng [employer] * ALL edits or amendments must be made on the electronic/computer document * SubjectiveChief complaint:Abdominal distention, hydronephrosisHPI:62-year-old male with last medical history of, BPH, transferred from [place] for urology evaluation and treatment secondary to [...] - 32.0 %) 9.5 L 7.3 L Wilkes % (Auto) (4.8 - 9.0 %) 7.2 7.5 Eos % (Auto) (0.3 - 3.7 %) 2.6 2.2 Baso % (Auto) (0.0 - 2.0 %) 0.4 0.3 Neut # (Auto) (2.0 - 7.6 x10 3/uL) 13.75 H 15.38 H Lymph # (Auto) (1.0 - 3.8 x10 3/uL) 1.67 1.40 Wilkes # (Auto) (0.1 - 0.8 x10 3/uL) [...] range of motion, normal sensory, normal motor functionNeuro/CLIENT RELATIONS REPRESENTATIVE: alert, oriented X 3Skin: dry, intact, no gross abnormalitiesPsychiatry: no hallucinations, normal moodProblem List/A P: 1. Rupture of ureter Free Text DxA P NotesFree text DxA P notes:Assessment:62-year-old male with last medical history of, BPH, transferred from [place] for urology evaluation and treatment secondary to [...] neededRepeat labsFurther recommendation based on patient's clinical dzabxr9210/17/2022Vital signs within normal limitsHypokalemia 3.2, hypomagnesemia 1.50Renal [...] supportive care at 0141 at 1009 RPT #:[id number] OF REPORTPRProgress lwac9766-16-52Q33:11:00G.RQKL15738960-5736QHTwzxh able for patient tusaHEAULABPPBCMAT9969-26-50H47:42:15 [facility] 2022-10-20 17:06:00 [id number] wsxp/85ZDBvU1juZjkaRfgjUqi9Ix OvR0/JPiAua6XqgZ0puKiOTzDMd8492-26-81R87:06:00 [facility] ([facility])Infect Disease Consult NoteREPORT#:[id number] REPORT STATUS: SignedDATE:10/20/22 TIME: 1706 PATIENT: MATHEW CASTILLO UNIT #: [id number]#: [id number] [address] [birth year] AGE: 62 SEX: M ATTEND: [...] Allergies:No Known Allergies (10/16/22) at 0239 RPT #:[id number] OF REPORTRTByaimkiasicb2236-48-63Q90:06:00G.PDOC2 3105629-3513HVJkpkzrsmm for patient yosbDVNECVTVPCMVJK2399-65-99D53:40:06 [facility] 2022-10-20 01:07:00 [id number] 1sFQAGaigMIFAz8QjAawr+AYBwgnw 3Zdn8lgD9CUw9JNLkTRBXp6ZAVS7467-59-92I64:07:[address] [address] [place] [address] PATIENT NAME: MATHEW CASTILLO ADMIT DATE: 10/16/22ACCOUNT NO: [id number] ROOM NO: G.6630 AGE: 62 REPORT TYPE: eELECTROCARDIOGRAM REPORT SEX: M ADMITTING PHYSICIAN:Salinas Alba MD ATTENDING PHYSICIAN:Salinas Alba MD Order:[id number] Reason : Sepsis Test Date/Time Stamp:FriOct 20 [...] MD at 1247 PATIENT NAME: MATHEW CASTILLO .[id number] AVAvailable for patient zlrnQQYEJZNBXXGEIS9346-30-36U27:47:27 [facility] 2022-10-19 22:43:00 [id number]+bH+pxod Lqn4BHXP/MSt1rJIDf06rPgvgM7z/ rmrfw61y4P4fGxGapnbdnP8i/O24081-57-59F59:43:00 [facility] Prog. NoteREPORT#:[id number] REPORT STATUS: SignedDATE:10/19/22 TIME: 2242 PATIENT: MATHEW CASTILLO UNIT #: [id number]#: [id number] [address] [birth year] AGE: 62 SEX: M ATTEND: Salinas Alba I [facility] AUTHOR: Sofia Cheng [employer] * ALL edits or amendments must be made on the electronic/computer document * SubjectiveChief complaint:Abdominal distention, hydronephrosisHPI:62-year-old male with last medical history of, BPH, transferred from [place] for urology evaluation and treatment secondary to [...] - 32.0 %) 15.7 15.6 10.6 L Wilkes % (Auto) (4.8 - 9.0 %) 8.5 10.1 H 12.8 H Eos % (Auto) (0.3 - 3.7 %) 6.0 H 7.5 H 2.7 Baso % (Auto) (0.0 - 2.0 %) 0.7 0.7 0.4 Neut # (Auto) (2.0 - 7.6 x10 3/uL) 6.09 5.53 8.23 H Lymph # (Auto) (1.0 - 3.8 x10 3/uL) 1.48 1.39 1.22 Wilkes # (Auto) (0.1 - 0.8 x10 3/uL) [...] pH (5.0 - 7.0) 5.0 Ur Specific [place] (1.005 - 1.030) 1.015 Urine Protein (NEGATIVE) [...] 10/19 10/19 10/19 10/19 1917 1615 1135 0730 9627 Chemistry Sodium (134 - 147 mEq/L) 139 [...] Pulse Resp B/P B/P Mean Pulse Ox MwT283/-10/19 37.0-37.2 66-85 14-17 105-142/67-80 80.3-100.6 95-98 Last [...] range of motion, normal sensory, normal motor functionNeuro/CLIENT RELATIONS REPRESENTATIVE: alert, oriented X 3Skin: dry, intact, no gross abnormalitiesPsychiatry: no hallucinations, normal moodProblem List/A P: 1. Rupture of ureter Free Text DxA P NotesFree text DxA P notes:Assessment:62-year-old male with last medical history of, BPH, transferred from [place] for urology evaluation and treatment secondary to [...] neededRepeat labsFurther recommendation based on patient's clinical eorwgq2110/17/2022Vital signs within normal limitsHypokalemia 3.2, hypomagnesemia 1.50Renal [...] present care at 0229 at 1514 RPT #:[id number] OF REPORTPRProgress exar8828-49-60F10:43:00G.CJCZ33768574-9611OQUvltp able for patient emghQBEKRLGYHDEGVI3069-74-15Q78:29:44 [facility] 2022-10-19 20:14:00 K72902510857Q7A/jmkQ uxVSWA3Fe/q2IaMk7cIpfme0Md+fabi Bk3zF76O35iZ/hkVTBIscUk0Stn2915-57-71I17:14:00 [facility]way[facility]ph[facility] Progress NoteREPORT#:[id number] REPORT STATUS: SignedDATE:10/19/22 TIME: 2013 PATIENT: MATHEW CASTILLO UNIT #: [id number]#: [id number] [address] [birth year] AGE: 62 SEX: M ATTEND: [...] 10/19 10/19 10/19 10/19 10/18 1615 1135 0715 0342 2021 Chemistry Sodium (134 - 147 mEq/L) [...] % (Auto) (14.0 - 32.0 %) 15.7 Wilkes % (Auto) (4.8 - 9.0 %) 8.5 Eos % (Auto) (0.3 - 3.7 %) 6.0 H Baso % (Auto) (0.0 - 2.0 %) 0.7 Neut # (Auto) (2.0 - 7.6 x10 3/uL) 6.09 Lymph # (Auto) (1.0 - 3.8 x10 3/uL) 1.48 Wilkes # (Auto) (0.1 - 0.8 x10 3/uL) [...] pH (5.0 - 7.0) 5.0 Ur Specific [place] (1.005 - 1.030) 1.015 Urine Protein (NEGATIVE) [...] Plan: CHANDRA (Resolved)-Renal function improved and wnl, blcak to gravity, on bicarb gtt, will d/c now.-2/2 post-obstrucitve uropathy, monitor for post-obstructive diuresis. -UA, urine lytes requested-Per Urology note: Reportedly the patient had 3L of urine in his bladder. CT abdomen from [place] showed that the patient has a very [...] urine in his bladder. CT abdomen from [place] showed that the patient has a very [...] IV hydralazine Schizophrenia-Home medications resumed at 2148 [facility] #:[id number] OF REPORTPRProgress ndnd3286-88-80H61:14:00G.HMHQ94439531-3779HWBhfzy able for patient saslRHBRNUYAFUSERG8875-55-76O19:49:08 [facility] 2022-10-18 20:26:00 I29623448731r8pDwOMw Y55dPI9iVjAjVPRjyOlGFdWMNzyh3 sblLOfUxsLrGnxvTJJUWYx/ITw+4447-18-61O30:26:00 [facility])Internal Medicine Prog. NoteREPORT#:[id number] REPORT STATUS: SignedDATE:10/18/22 TIME: 2025 PATIENT: MATHEW CASTILLO UNIT #: [id number]#: [id number] [address] [birth year] AGE: 62 SEX: M ATTEND: Salinas Alba I [facility] AUTHOR: Sofia Cheng [employer] * ALL edits or amendments must be made on the electronic/computer document * SubjectiveChief complaint:Abdominal distention, hydronephrosisHPI:62-year-old male with last medical history of, BPH, transferred from [place] for urology evaluation and treatment secondary to [...] % (Auto) (14.0 - 32.0 %) 15.6 Wilkes % (Auto) (4.8 - 9.0 %) 10.1 H Eos % (Auto) (0.3 - 3.7 %) 7.5 H Baso % (Auto) (0.0 - 2.0 %) 0.7 Neut # (Auto) (2.0 - 7.6 x10 3/uL) 5.53 Lymph # (Auto) (1.0 - 3.8 x10 3/uL) 1.39 Wilkes # (Auto) (0.1 - 0.8 x10 3/uL) [...] range of motion, normal sensory, normal motor functionNeuro/CLIENT RELATIONS REPRESENTATIVE: alert, oriented X 3Skin: dry, intact, no gross abnormalitiesPsychiatry: no hallucinations, normal moodProblem List/A P: 1. Rupture of ureter Free Text DxA P NotesFree text DxA P notes:Assessment:62-year-old male with last medical history of, BPH, transferred from [place] for urology evaluation and treatment secondary to [...] neededRepeat labsFurther recommendation based on patient's clinical plggye5810/17/2022Vital signs within normal limitsHypokalemia 3.2, hypomagnesemia 1.50Renal [...] and supportive care at 2012 at 13[address] [facility] #:[id number] OF REPORTPRProgress xdcm4480-39-63T88:26:00G.CVER27089121-3742ZZRxuzd able for patient pqxdCEZUYCGEUSMMBJ7180-77-54P97:12:32 [facility] 2022-10-18 17:48:00 [id number] fE+PvALquaqDVYFR1YduC9cVLF98a V1jeT4fpOnqy4C/sDFVle4rawKO8825-65-36L51:48:00 [facility]wayNeph[facility] Progress NoteREPORT#:[id number] REPORT STATUS: SignedDATE:10/18/22 TIME: 1747 PATIENT: MATHEW CASTILLO UNIT #: [id number]#: [id number] [address] [birth year] AGE: 62 SEX: M ATTEND: Salinas Alba I [facility] AUTHOR: Carmen Kemp * ALL edits [...] % (Auto) (14.0 - 32.0 %) 15.6 Wilkes % (Auto) (4.8 - 9.0 %) 10.1 H Eos % (Auto) (0.3 - 3.7 %) 7.5 H Baso % (Auto) (0.0 - 2.0 %) 0.7 Neut # (Auto) (2.0 - 7.6 x10 3/uL) 5.53 Lymph # (Auto) (1.0 - 3.8 x10 3/uL) 1.39 Wilkes # (Auto) (0.1 - 0.8 x10 3/uL) [...] urine in his bladder. CT abdomen from [place] showed that the patient has a very [...] urine in his bladder. CT abdomen from [place] showed that the patient has a very [...] K and magnesium supplementation. at 1937 RPT #:[id number] OF REPORTPRProgress hvxp4821-69-79L43:48:00G.YZJN52535166-8184KVUntcp able for patient dqftCBRYORKFQNUWUJ7401-18-82P98:50:34 [facility] 2022-10-17 22:43:00 [id number] KZa1zc5ctlDCJLDh+sNOO9IgPxn1V 1fysiQY787lHfR4n65tlwt7uOkI7972-47-53A83:43:00 [facility] Prog. NoteREPORT#:[id number] REPORT STATUS: SignedDATE:10/17/22 TIME: 2242 PATIENT: MATHEW CASTILLO UNIT #: [id number]#: [id number] [address] [birth year] AGE: 62 SEX: M ATTEND: Salinas Alba I [facility] AUTHOR: Sofia Cheng NP * ALL edits or amendments must be made on the electronic/computer document * SubjectiveChief complaint:Abdominal distention, hydronephrosisHPI:62-year-old male with last medical history of, BPH, transferred from [place] for urology evaluation and treatment secondary to [...] Pulse Resp B/P B/P Mean Pulse Ox GzM236/-10/17 37.2-37.5 83-100 16-18 119-133/70-79 86.3-96.8 93-95 Last [...] (Auto) (14.0 - 32.0 %) 10.6 L Wilkes % (Auto) (4.8 - 9.0 %) 12.8 H Eos % (Auto) (0.3 - 3.7 %) 2.7 Baso % (Auto) (0.0 - 2.0 %) 0.4 Neut # (Auto) (2.0 - 7.6 x10 3/uL) 8.23 H Lymph # (Auto) (1.0 - 3.8 x10 3/uL) 1.22 Wilkes # (Auto) (0.1 - 0.8 x10 3/uL) [...] range of motion, normal sensory, normal motor functionNeuro/CLIENT RELATIONS REPRESENTATIVE: alert, oriented X 3Skin: dry, intact, no gross abnormalitiesPsychiatry: no hallucinations, normal moodProblem List/A P: 1. Rupture of ureter Free Text DxA P NotesFree text DxA P notes:Assessment:62-year-old male with last medical history of, BPH, transferred from [place] for urology evaluation and treatment secondary to [...] neededRepeat labsFurther recommendation based on patient's clinical mmlyjq1310/17/2022Vital signs within normal limitsHypokalemia 3.2, hypomagnesemia 1.50Renal function is improved, discontinue bicarb drip, continue electrolyte control-replace as needed per nephroUrology is followingContinue tamsulosinBP control-on hydralazine as needed, pain controlContinue telemetry monitoring, intake and output, fall precautionFollow-up labs, continue medications and supportive care at 0210 at 1300 RPT #:[id number] OF REPORTPRProgress ytyr1616-92-00G17:43:00G.ONKZ37391324-5934VRSkhdh able for patient jzrxZVTXEUPQRXVBMG4010-64-90O93:10:49 [facility] 2022-10-17 17:41:00 M92747091772WvOyA3XP P8AeZBb0QEqNXh88K4j229ndnmpUm Tf6/7+7uPn3nnHlUrhtofnZCP1q4598-90-17S81:41:00 [facility] ([facility])Urology Progress NoteREPORT#:[id number] REPORT STATUS: SignedDATE:10/17/22 TIME: 1740 PATIENT: MATHEW CASTILLO UNIT #: [id number]#: [id number] [address] [birth year] AGE: 62 SEX: M ATTEND: Salinas Alba I [facility] AUTHOR: Dave Jones MD * ALL [...] (Auto) (14.0 - 32.0 %) 10.6 L Wilkes % (Auto) (4.8 - 9.0 %) 12.8 H Eos % (Auto) (0.3 - 3.7 %) 2.7 Baso % (Auto) (0.0 - 2.0 %) 0.4 Neut # (Auto) (2.0 - 7.6 x10 3/uL) 8.23 H Lymph # (Auto) (1.0 - 3.8 x10 3/uL) 1.22 Wilkes # (Auto) (0.1 - 0.8 x10 3/uL) [...] ofr cystoscopy. Home with black at 1742 [facility] #:[phone] OF REPORTPRProgress rtdb3747-13-37A17:41:00G.[id number] able for patient zbimRXBJGQBVVNZNLF9833-93-24V45:42:28 [facility] 2022-10-17 13:46:00 [id number] Xt4jKPGm4lHxxbumLkKsNxMBjexUr 6fOvkrAjbdzz2SXEseYjYih6aVV6273-72-71C21:46:00 [facility] Progress NoteREPORT#:[id number] REPORT STATUS: SignedDATE:10/17/22 TIME: 1345 PATIENT: MATHEW CASTILLO UNIT #: [id number]#: [id number] [address] [birth year] AGE: 62 SEX: M ATTEND: [place] I [facility] AUTHOR: Carmen Kemp * ALL edits [...] (Auto) (14.0 - 32.0 %) 10.6 L Wilkes % (Auto) (4.8 - 9.0 %) 12.8 H Eos % (Auto) (0.3 - 3.7 %) 2.7 Baso % (Auto) (0.0 - 2.0 %) 0.4 Neut # (Auto) (2.0 - 7.6 x10 3/uL) 8.23 H Lymph # (Auto) (1.0 - 3.8 x10 3/uL) 1.22 Wilkes # (Auto) (0.1 - 0.8 x10 3/uL) [...] urine in his bladder. CT abdomen from [place] showed that the patient has a very [...] urine in his bladder. CT abdomen from [place] showed that the patient has a very [...] above A/P at 1759 at 2234 RPT #:[id number] OF REPORTPRProgress wlrk5851-84-05O89:46:00G.[id number] able for patient qqwtULKYWCJZHXCDFP6040-83-29M25:00:00 [facility] 2022-10-16 15:13:00 [id number] jLnkfUSngFHxf6T31mOo9MOF1lm6N ih9VRMdmNDP9fGyVH8Z3vhy7Gm75432-53-37D39:13:67560 2-[address] [place] [address] PATIENT NAME: MATHEW CASTILLO ADMIT DATE: 10/16/22ACCOUNT NO: [id number] ROOM NO: [facility] AGE: 62 REPORT TYPE: CONSULTATION REPORT SEX: M ADMITTING PHYSICIAN:[place] Alba MD ATTENDING PHYSICIAN:[place] Alba MD CONSULTATION DATE:10/16/2022 REASON FOR CONSULTATION: Hydronephrosis, urinary retention. HISTORY OF PRESENT ILLNESS: This is a 62-year-old male with a history ofschizophrenia who was sent in from [place]. He had reportedly almost 3liters of urine [...] pressure 134/86, pulse 94, respiratory rate 18, nhuuuifphbs89.1, 93% on room air.GENERAL: Alert. No acute distress, nontoxic.HEENT: Normocephalic, atraumatic. Nontoxic.NECK: Supple.HEART: Regular rate and rhythm.LUNGS: Respirations unlabored.ABDOMEN: Soft, nontender, nondistended. No CVA tenderness.EXTREMITIES: Moving all extremities well. LABORATORY DATA: White blood cell count 11, hemoglobin 10.9, platelets 207.Creatinine was 2.1 on admission, now down to 1.4. ASSESSMENT AND PLAN: We reviewed the CT scan of the abdomen and pelvis from [facility]. The patient has a very large [...] Dictated: 10/16/2022 15:13:22Date Transcribed: 10/16/2022 16:06:29TESSIE/Yulisa #: [id number] ID: [id number] and Edited by Dave Jones MD On 11/12/22 1:37:06 PM at 0138 PATIENT NAME: MATHEW CASTILLO :06:00G.[place] [id number] for patient xcpeZBYUZKEWCUXVKQ1010-12-59L24:40:23 [facility] 2022-10-16 12:39:00 [id number] VXnVQ/RfEnb5LGjo4atAPzOYao+PL YK8YqjdKRnhRjOZPo2y0vP2JpPB6685-29-10V91:39:00 [facility] ([facility])Nephrology Consultation NoteREPORT#:[id number] REPORT STATUS: SignedDATE:10/16/22 TIME: 1239 PATIENT: MATHEW CASTILLO UNIT #: [id number]#: [id number] [address] [birth year] AGE: 62 SEX: M ATTEND: Sal[place] Alba I [facility] AUTHOR: Carmen Kemp * ALL edits [...] Friday who took him to ER in [place]. He had CT abdomen which revealed b/l hydronephrosis and concern for possible ureteral rupture. [facility] VS [...] (Auto) (14.0 - 32.0 %) 3.8 L Wilkes % (Auto) (4.8 - 9.0 %) 13.6 H Eos % (Auto) (0.3 - 3.7 %) 0.4 Baso % (Auto) (0.0 - 2.0 %) 0.2 Neut # (Auto) (2.0 - 7.6 x10 3/uL) 8.96 H Lymph # (Auto) (1.0 - 3.8 x10 3/uL) 0.42 L Wilkes # (Auto) (0.1 - 0.8 x10 3/uL) [...] urine in his bladder. CT abdomen from [place] showed that the patient has a very [...] urine in his bladder. CT abdomen from [place] showed that the patient has a very [...] patient's nurse, and . Toby Koehler 10/16/22 7909:Attestations Physician AttestationReviewed findings plan:Patient examined 62 years old male with PMH significant for schizophrenia, HTN, BPH, current everyday smoker. The patient states that on Friday last week, he noted abdominal distention, associated w/ pain and was unable to urinate. He wasseen by his daughter Friday who took him to ER in [place]. He had CT abdomen which revealed b/l hydronephrosis and concern for possible ureteral rupture. He was transferred to [facility] for Urology evaluation. Initial VSat the ER [...] above A/P at 1902 at 2211 RPT #:[id number] OF REPORTNWTrsjdgexylfk3010-87-37Q08:39:00G.PDOC2 [id number] for patient pxejBBIOUVMYRUIAHU7264-55-25C14:02:18 [facility] 2022-10-16 11:15:00 [id number] nluAb/RBAjyIssiIziL9tD3QTaOpi nCb5xBNHmmyDkAB8jYX42JV2oyD1485-64-76T09:15:00 [facility] ([facility])History Physical - AdultREPORT#:[id number] REPORT STATUS: SignedDATE:10/16/22 TIME: 1115 PATIENT: ANNAMATHEW ELKTON UNIT #: [id number]#: [id number] ROOM/BED: 6630-1DOB: [birth year] AGE: 62 SEX: M ATTEND: [place] Alba I [facility] AUTHOR: Sofia Cheng NP * ALL edits or amendments must be made on the electronic/computer document * History of Present Illness HPIChief complaint:Abdominal distention, hydronephrosisHPI:62-year-old male with last medical history of, BPH, transferred from [place] for urology evaluation and treatment secondary to [...] range of motion, normal sensory, normal motor functionNeuro/CLIENT RELATIONS REPRESENTATIVE: alert, oriented X 3Skin: dry, intact, no [...] (Auto) (14.0 - 32.0 %) 3.8 L Wilkes % (Auto) (4.8 - 9.0 %) 13.6 H Eos % (Auto) (0.3 - 3.7 %) 0.4 Baso % (Auto) (0.0 - 2.0 %) 0.2 Neut # (Auto) (2.0 - 7.6 x10 3/uL) 8.96 H Lymph # (Auto) (1.0 - 3.8 x10 3/uL) 0.42 L Wilkes # (Auto) (0.1 - 0.8 x10 3/uL) [...] last medical history of, BPH, transferred from [place] for urology evaluation and treatment secondary to [...] on patient's clinical course at 0232 at 5267 RPT #:[id number] OF REPORTHPHistory and physical hhsiatxgdhm6372-41-62H05:15:00G.[id number] AVAvailable for patient jqycKIBSKIZAJCNSMG6659-91-44D37:32:18 [facility] 2022-10-16 03:54:00 [id number]+AgTxa y2r/ukbr8QHpZ3WTQROT1cym6kyje i4ihgtSd3W4ssKiUp+cChIvBr3F0746-33-13F46:54:00 [facility] ([facility] PROVID[facility] REPORTREPORT#:[id number] REPORT STATUS: SignedDATE:10/16/22 TIME: 353 PATIENT: MATHEW CASTILLO UNIT #: [id number]#: [id number] [address] 62 SEX: M PCP PHYS: No [...] (Auto) (14.0 - 32.0 %) 3.8 L Wilkes % (Auto) (4.8 - 9.0 %) 13.6 H Eos % (Auto) (0.3 - 3.7 %) 0.4 Baso % (Auto) (0.0 - 2.0 %) 0.2 Neut # (Auto) (2.0 - 7.6 x10 3/uL) 8.96 H Lymph # (Auto) (1.0 - 3.8 x10 3/uL) 0.42 L Wilkes # (Auto) (0.1 - 0.8 x10 3/uL) [...] 10/16 Sodium Chloride 10 ML IV 10/16 [id number] ConsultationConsultation Referral/Consult Name Dave Jones MD Mix 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 at 1907RPT #:[id number] OF REPORTEDEmerarkansas children's hospital department dbegcb1033-68-10S44:54:00G.[id number] ilable for patient fnkuCXKYWSYQAYCGPC4052-04-81O35:07:49 [facility]
--- NOTE | 2023-05-27 11:45 | ER ---
Nurse's Notes [facility] Name: Mathew Porter Age: 62 yrs Sex: Male : 1960 Arrival Date: 05/27/2023 Time: 11:20 Bed 18 Private MD: Lakhwinder Guillermo Diagnosis: Mercer catheter in place Presentation: 05/27 11:33 Chief complaint: Patient states: WANTS URINARY CATHETER REMOVED. STATES HAD db RECOMMENDATION TO TRY TO REMOVE CATH AND SEE IF CAN URINATE ON HIS OWN. Coronavirus screen: Vaccine status: Patient reports receiving the 2nd dose of the covid vaccine. Coronavirus screen: Client denies travel out of the [place] in the last 14 days. At this time, the client does not indicate any symptoms associated with coronavirus-19. Ebola Screen: Patient negative for fever greater than or equal to 101.5 degrees Fahrenheit, and additional compatible Ebola Virus Disease symptoms Patient denies exposure to infectious person. Patient denies travel to an Ebola-affected area in the 21 days before illness onset. No symptoms or risks identified at this time. Initial Sepsis Screen: Does the patient meet any 2 criteria? No. Patient's initial sepsis screen is negative. Does the patient have a suspected source of infection? No. Patient's initial sepsis screen is negative. Risk Assessment: Do you want to hurt yourself or someone else? Patient reports no desire to harm self or others. Onset of symptoms was May 27, 2023. 11:33 Method Of Arrival: Ambulatory db 11:33 Acuity: JAMILA 3 db Triage Assessment: 11:36 General: Appears in no apparent distress. comfortable, Behavior is calm, cooperative. db Pain: Denies pain. Neuro: Level of Consciousness is awake, alert, obeys commands, Oriented to person, place, time, situation. Historical: - Allergies: 11:36 NKA; db - PMHx: 11:36 Schizophrenia; db - PSHx: 11:36 Urolift (December); db - Immunization history:: Adult Immunizations unknown. - Social history:: Smoking status: Patient reports the use of cigarette tobacco products, smokes one pack cigarettes per day. Screenin:40 [facility] ED Fall Risk Assessment (Adult) History of falling in the last 3 months, mb9 including since admission No falls in past 3 months (0 pts) Confusion or Disorientation No (0 pts) Intoxicated or Sedated No (0 pts) Impaired Gait No (0 pts) Mobility Assist Device Used No (0 pt) Altered Elimination No (0 pt) Score/Fall Risk Level 0 - 2 = Low Risk Oriented to surroundings, Maintained a safe environment, Educated pt \T\ family on fall prevention, incl call for assistance when getting out of bed. Abuse screen: Denies threats or abuse. Nutritional screening: No deficits noted. Tuberculosis screening: No symptoms or risk factors identified. Assessment: 11:42 General: Appears in no apparent distress. Behavior is calm, cooperative. Pain: Denies mb9 pain. Neuro: Level of Consciousness is awake, alert, obeys commands, Oriented to person, place, time, situation, Appropriate for age. Cardiovascular: Patient's skin is warm and dry. Respiratory: Airway is patent Respiratory effort is even, unlabored, Respiratory pattern is regular, symmetrical. GI: No signs and/or symptoms were reported involving the gastrointestinal system. : Mercer in place. EENT: No signs and/or symptoms were reported regarding the EENT system. Derm: Skin is pink, warm \T\ dry. Musculoskeletal: Range of motion: intact in all extremities. Vital Signs: 11:33 BP 127 / 85; Pulse 97; Resp 16; Temp 98.8(O); Pulse Ox 99% ; Weight 70.76 kg; Height 5 db ft. 9 in. ; 11:33 Body Mass Index 23.04 (70.76 kg, 175.26 cm) db ED Course: 11:24 Patient arrived in ED. rg4 11:24 Lakhwinder Guillermo MD is Private Physician. rg4 11:24 Wilbert Barragan DO is Attending Physician. ms3 11:36 Triage completed. db 11:36 Arm band placed on. db 11:38 Rylee Franco, DEENA is Primary Nurse. mb9 11:40 Placed in gown. Bed in low position. Call light in reach. Side rails up X 1. Client mb9 placed on continuous cardiac and pulse oximetry monitoring. NIBP monitoring applied. 11:42 No provider procedures requiring assistance completed. mb9 11:43 Ricky Navarrete MD is Referral Physician. ms3 11:43 Lakhwinder Guillermo MD is Referral Physician. ms3 11:43 Patient did not have IV access during this emergency room visit. mb9 Administered Medications: No medications were administered Medication: 11:40 VIS not applicable for this client. mb9 Outcome: 11:44 Discharge ordered by . ms3 11:56 Discharged to home ambulatory, mb9 11:56 Condition: stable 11:56 Discharge instructions given to patient, Instructed on discharge instructions, follow up and referral plans. Demonstrated understanding of instructions, follow-up care, 11:56 Patient left the ED. mb9 Signatures: Whit Cuadra rg4 Wilbert Barragan DO DO ms3 Mariangel Westbrook, RN RN db Rylee Franco RN RN mb9 Corrections: (The following items were deleted from the chart) 11:37 11:33 Pulse 97bpm; Resp 16bpm; Pulse Ox 99%; Temp 98.8F Oral; 70.76 kg; Height 5 ft. 9 db in.; BMI: 23.0; db
--- NOTE | 2023-05-27 11:45 | EDPHYS ---
Physician Documentation [facility] Name: Mathew Porter Age: 62 yrs Sex: Male : 1960 Arrival Date: 05/27/2023 Time: 11:20 Bed 18 Private MD: Lakhwinder Guillermo ED Physician Wilbert Barragan HPI: 05/27 11:57 This 62 yrs old Male presents to ER via Ambulatory with complaints of Problem With ms3 Urinary Catheter. 11:57 62-year-old male with past medical history of schizophrenia presents to the emergency ms3 department for removal of Mercer catheter. Patient states his catheter was placed on October 16 and he has had a catheter since that time. Patient states his catheter has previously been removed and he returned for urinary retention.. Historical: - Allergies: 11:36 NKA; db - PMHx: 11:36 Schizophrenia; db - PSHx: 11:36 Urolift (December); db - Immunization history:: Adult Immunizations unknown. - Social history:: Smoking status: Patient reports the use of cigarette tobacco products, smokes one pack cigarettes per day. ROS: 11:57 Constitutional: Negative for fever, and chills. Neck: Negative for injury, pain, and ms3 swelling, Cardiovascular: Negative for chest pain, and palpitations. Respiratory: Negative for shortness of breath, cough, wheezing, and pleuritic chest pain, Abdomen/GI: Negative for abdominal pain, nausea, vomiting, diarrhea, and constipation, MS/Extremity: Negative for injury and deformity, Skin: Negative for injury, rash, and discoloration, 11:57 : Positive for Mercer catheter in place, Exam: 11:57 Constitutional: This is a well developed, well nourished patient who is awake, alert, ms3 and in no acute distress. Head/Face: Normocephalic, atraumatic. Chest/axilla: Normal chest wall appearance and motion. Nontender with no deformity. Cardiovascular: Regular rate and rhythm with a normal S1 and S2. No gallops, murmurs, or rubs. Normal PMI, no JVD. No pulse deficits. Respiratory: Lungs have equal breath sounds bilaterally, clear to auscultation and percussion. No rales, rhonchi or wheezes noted. No increased work of breathing, no retractions or nasal flaring. Abdomen/GI: Soft, non-tender, with normal bowel sounds. No distension or tympany. No guarding or rebound. No evidence of tenderness throughout. Skin: Warm, dry with normal turgor. Normal color with no rashes, no lesions, and no evidence of cellulitis. MS/ Extremity: Pulses equal, no cyanosis. Neurovascular intact. Full, normal range of motion. Vital Signs: 11:33 BP 127 / 85; Pulse 97; Resp 16; Temp 98.8(O); Pulse Ox 99% ; Weight 70.76 kg; Height 5 db ft. 9 in. ; 11:33 Body Mass Index 23.04 (70.76 kg, 175.26 cm) db MDM: 11:43 Patient medically screened. ms3 11:57 Differential diagnosis: urinary retention, Mercer catheter problem. Data reviewed: vital ms3 signs, nurses notes, and as a result, I will discharge patient. Counseling: I had a detailed discussion with the patient and/or guardian regarding the historical points, exam findings, and any diagnostic results supporting the discharge/admit diagnosis, the need for outpatient follow up, to return to the emergency department if symptoms worsen or persist or if there are any questions or concerns that arise at home. ED course: Discussed with patient necessity to follow-up with primary care or urology for Mercer catheter removal since prior removal from the emergency department resulted in patient returning for urinary retention. Patient understands agrees with plan. All questions were answered. Return precautions discussed include worsening symptoms, or any other concerns. Administered Medications: No medications were administered Disposition Summary: 05/27/23 11:44 Discharge Ordered Notes: Location: Home ms3 Condition: Stable ms3 Diagnosis - Mercer catheter in place ms3 Followup: ms3 - With: Ricky Navarrete MD - When: 2 - 3 days - Reason: Recheck today's complaints Followup: ms3 - With: Lakhwinder Guillermo MD - When: 2 - 3 days - Reason: Recheck today's complaints Forms: - Medication Reconciliation Form ms3 - Thank You Letter ms3 - Antibiotic Education ms3 - Prescription Opioid Use ms3 - Patient Portal Instructions ms3 - Leadership Thank You Letter ms3 Signatures: Wilbert Barragan DO DO ms3 Mariangel Westbrook RN RN db
[2023-05-27 12:06] VITALS: BP 127/85; TEMP 98.8; O2SAT 99
== END ==
LOC: ER 11:20
DX: Z46.6 Encounter for fitting and adjustment of urinary device (principal)

== ENCOUNTER → 2023-07-02 | Emergency (ER) | payer OTHER ==
--- OUTSIDE RECORDS SUMMARY | 2023-07-02 14:58 | XMS REPORT | Continuity of Care Document ---
Author Name Unknown Address [address] [facility] [place]. [address] thconnect Address [address] [facility] [place] 1 495 [place] [address] Care Team Providers Care Chart Clerk Name Role Phone Salinas Alba I Attending [...] s DA Active U 10-16 00:00: 00 [facility] Encounters Start Date/Time End Date/Time Encounter Type Admission Type Attending Clinicians Care Facility Care Department Encounter ID Source 2023-01-21 06:38:00 2023-01-22 20:00:00 Inpatient EM Salinas Alba [facility]01 [id number] [facility] 2023-01-06 15:12:00 2023-01-11 21:08:00 Inpatient EM Salinas Alba [facility]01 [id number] [facility] 2022-10-16 05:03:00 2022-10-26 19:41:00 Inpatient EM Salinas Alba [facility]01 [id number] [facility] Results Test Description Test Time Test Comments Results Resul t Comments Source - CT ABD PELVIS W/CONT 2023-01-05 8 13:00:00 [facility] : 1960 Sex: M Name: MATHEW CASTILLO [facility] : 1960 Age/S: 62 / M [address] [place] [address] Blvd Unit #: [id number] Loc: [place] [address] Phys: Sofia Cheng BOLT SAWYER Acct: [id number] Dis Date: Status: ADM IN PHONE #: [phone] Exam Date: 01/22/2023 1231 FAX #: [phone] Reason: ABD PAIN EXAMS: CPT CODE: [id number] CT ABD PELVIS W/CONT 21569 EXAM: CT abdomen and pelvis with contrast [...] 1 Signed Report (CONTINUED) Name: MATHEW CASTILLO [facility] : 1960 Age/S: 62 / M [address] [place] [address] Blvd Unit #: [id number] Loc: [place] [address] Phys: Sofia Cheng BOLT SAWYER Acct: [id number] Dis Date: Status: ADM IN PHONE #: [phone] Exam Date: 01/22/2023 1231 FAX #: [phone] Reason: ABD PAIN EXAMS: CPT CODE: [id number] CT ABD PELVIS W/CONT 59782 (Continued) abdominal aortic aneurysm. Pelvic organs/bladder: Moderate [...] M.D. CC: Lakhwinder Guillermo MD; Sofia Cheng BOLT SAWYER; Salinas Dukes MD Technologist:Rick Moran Jr, RT(R)(CT) CTDI: DLP: Trnscb Date/Time: 01/22/2023 (1300) t.SDR.BC0 Orig Print D/T: S: 01/22/2023 (4185) PAGE 2 Signed Report [id number] 07:46:00* Test Item Value Reference Range Interpretation Comme nts PHOSPHOROUS (test code = PHOS) 2.4 MG/DL 2.5-4.9 L [id number] 07:46:00* Test Item Value Reference Range Interpretation Comme nts MAGNESIUM (test code = MAG) 1.69 mg/dL 1.6-2.6 N NOTE: NEW NORMAL RANGE CBC W/AUTO [id number] 07:05:00* Test Item Value Reference Range Interpretation [...] 0.00 x10 3/uL 0.0-0.1 N BASIC METABOLIC [id number] 06:08:00* Test Item Value Reference Range Interpretation [...] CA) 8.2 mg/dL 8.0-10.5 N CBC W/AUTO [id number] 05:57:00* Test Item Value Reference Range Interpretation [...] c ode = MDIFF) NO CBC W/AUTO [id number] 08:15:00* Test Item Value Reference Range Interpretation [...] 0.00 x10 3/uL 0.0-0.1 N BASIC METABOLIC [id number] 07:28:00* Test Item Value Reference Range Interpretation [...] CA) 8.6 mg/dL 8.0-10.5 N BASIC METABOLIC [id number] 07:46:00* Test Item Value Reference Range Interpretation [...] CA) 8.7 mg/dL 8.0-10.5 N CBC W/AUTO [id number] 07:34:00* Test Item Value Reference Range Interpretation [...] 0.00 x10 3/uL 0.0-0.1 N CBC W/AUTO [id number] 08:43:00* Test Item Value Reference Range Interpretation [...] c ode = MDIFF) NO BASIC METABOLIC [id number] 07:14:00* Test Item Value Reference Range Interpretation [...] CA) 7.8 mg/dL 8.0-10.5 L CBC W/AUTO [id number] 08:58:00* Test Item Value Reference Range Interpretation [...] c ode = MDIFF) NO BASIC METABOLIC [id number] 08:27:00* Test Item Value Reference Range Interpretation [...] HGBA1C%) 5.1 %A1C 4.8-6.0 N CBC W/AUTO [id number] 08:05:00* Test Item Value Reference Range Interpretation [...] (test code = MDIFF) NO BASIC METABOLIC [id number] 07:46:00* Test Item Value Reference Range Interpretation [...] = LDL) 104.0 mg/dL 0-100 H <100 CGRBOHI25 0-129 NEAR OPTIMAL/ABOVE [id number] [id number] HIGH>HF=127 VERY HIGH*Guidelines provided by the National Cholesterol EducationProgram Adult Treatment Panel III [id number] 07:46:00* Test Item Value Reference Range Interpretation Comme nts PHOSPHOROUS (test code = PHOS) 3.4 MG/DL 2.5-4.9 N [id number] 07:46:00* Test Item Value Reference Range Interpretation Comme nts MAGNESIUM (test code = MAG) 1.69 mg/dL 1.6-2.6 N NOTE: NEW NORMAL RANGE TSH REFLEX TO [id number] 07:46:00* Test Item Value Reference Range Interpretation Comme nts TSH REFLEX TO FT4 (test code = TSHREFLEX) 2.37 IU/mL 0.42-5.47 N LACTIC [id number] 05:48:00* Test Item Value Reference Range Interpretation Comme nts LACTIC ACID (test code = LACT) 1.1 mmol/L 0.4-1.9 N LACTIC ACID [id number] 02:38:00* Test Item Value Reference Range Interpretation Comme nts LACTIC ACID REPEAT (test cod e = LACTR) 0.9 mmol/l 0.4-1.9 N CALLED SEVERINO @01:18 TO REMIND WE NEEDED REPEATLACTIC [id number] 22:36:00* Test Item Value Reference Range Interpretation Comme nts LACTIC ACID (test code = LACT) 2.9 mmol/L 0.4-1.9 H UA RFLX MICR CULT IF [id number] 22:35:00* Test Item Value Reference Range Interpretation [...] Less than 14 days- CT ABD PELVIS [id number] 22:24:00 [facility] WOL[facility]ACHName: MATHEW CASTILLO : 1960 Sex: M Name: MATHEW CASTILLO [facility] [place] [facility] : 1960 Age/S: 62 / M [address] [place] [address] Blvd Unit #: [id number] Loc: [place] [address] Phys: Vee Horton Acct: [id number] Dis Date: Status: [facility] ER PHONE #: [phone] Exam Date: 01/04/2023 0940 FAX #: [phone] Reason: GROSS HEMATURIA EXAMS: CPT CODE: [id number] CT ABD PELVIS W/CONT 49408 H 20 TIME OF STUDY: 01/04/2023 7:55 [...] included lung bases are clear. There is amoderate hiatal hernia. Gallbladder is mildly distended. There is cholelithiasis present. The liver, pancreas, kidneys, adrenal glands and spleen all have normal appearance. There is no mesenteric or retroperitoneal adenopathy. The bowel loops are nondilated. A normal appendix is visualized. Thereis no free fluid or free air. The [...] 3. Cholelithiasis and mildly distended gallbladder. 4. Moderatehiatal hernia. PAGE 1 Signed Report (CONTINUED) Name: MATHEW CASTILLO [facility] : 1960 Age/S: 62 / M [address] [place] [address] Bl Unit #: [id number] Loc: [place] [address] Phys: Vee Horton Acct: [id number] Dis Date: Status: REG ER PHONE #: [phone] Exam Date: 01/04/2023 09 FAX #: [phone] Reason: GROSS HEMATURIA EXAMS: CPT CODE: [id number] CT ABD PELVIS W/CONT 69611 (Continued) at 2224 Reported and signed by: Zia Magaña M.D. CC: Lakhwinder Guillermo MD; Vee Horton; Javier Sullivan MD Technologist:Latoya Moeller, RT(R); Lesvia Humphries CTDI: DLP: Trnscb Date/Time: 01/04/2023 (2223) t.SDR.SI1 Orig Print D/T: S: 01/04/2023 (2226) PAGE 2 Signed ReportCOMPREHENSIVE METABOLIC [id number] 21:07:00* Test Item Value Reference Range Interpretation [...] ALKP) 60 IUnit/L 20-125 N CBC W/AUTO [id number] 20:38:00* Test Item Value Reference Range Interpretation [...] (test code = MDIFF) NO BASIC METABOLIC [id number] 08:30:00* Test Item Value Reference Range Interpretation [...] 70-110 HH [place] [address]/16/22Nurse read back resut and tech [...] reported result: 4.9 mg/dLEdited by: KRISTEN on 10/31/22:850536 0829: CA previously reported as: 4.9 *L mg/dL Critical [place] [address]/16/22 Nurse read back result and tech confirmed it's correct? Y GLUCOSE [id number] 17:27:00* Test Item Value Reference Range Interpretation Comme nts GLUCOSE BEDSIDE (test code = GLUBED) 109 MG/DL 70-110 N Performed by teto tse at [facility] GLUCOSE [id number] 12:34:00* Test Item Value Reference Range Interpretation Comme nts GLUCOSE BEDSIDE (test code = GLUBED) 95 MG/DL 70-110 N Performed by cer tified precision thread grinder operator at [facility] GLUCOSE [id number] 08:49:00* Test Item Value Reference Range Interpretation Comme nts GLUCOSE BEDSIDE (test code = GLUBED) 117 MG/DL 70-110 H Performed by cer tified precision thread grinder operator at [facility] BASIC METABOLIC [id number] 07:57:00* Test Item Value Reference Range Interpretation [...] = CA) 8.1 mg/dL 8.0-10.5 N GLUCOSE [id number] 17:07:00* Test Item Value Reference Range Interpretation Comme nts GLUCOSE BEDSIDE (test code = GLUBED) 127 MG/DL 70-110 H Performed by cer tified precision thread grinder operator at [facility] GLUCOSE [id number] 12:26:00* Test Item Value Reference Range Interpretation Comme nts GLUCOSE BEDSIDE (test code = GLUBED) 123 MG/DL 70-110 H Performed by cer tified precision thread grinder operator at [facility] GLUCOSE [id number] 07:59:00* Test Item Value Reference Range Interpretation Comme nts GLUCOSE BEDSIDE (test code = GLUBED) 92 MG/DL 70-110 N Performed by cer violeta precision thread grinder operator at [facility] BASIC METABOLIC [id number] 07:38:00* Test Item Value Reference Range Interpretation [...] CA) 7.8 mg/dL 8.0-10.5 L CBC W/AUTO [id number] 07:27:00* Test Item Value Reference Range Interpretation [...] REQUIRED (test code = MDIFF) NO GLUCOSE [id number] 21:25:00* Test Item Value Reference Range Interpretation Comme nts GLUCOSE BEDSIDE (test code = GLUBED) 154 MG/DL 70-110 H Performed by cer tified precision thread grinder operator at [facility] GLUCOSE [id number] 17:43:00* Test Item Value Reference Range Interpretation Comme nts GLUCOSE BEDSIDE (test code = GLUBED) 73 MG/DL 70-110 N Performed by cer tified precision thread grinder operator at [facility] GLUCOSE [id number] 10:08:00* Test Item Value Reference Range Interpretation Comme nts GLUCOSE BEDSIDE (test code = GLUBED) 87 MG/DL 70-110 N Performed by cer tified precision thread grinder operator at [facility] GLUCOSE [id number] 20:12:00* Test Item Value Reference Range Interpretation Comme nts GLUCOSE BEDSIDE (test code = GLUBED) 139 MG/DL 70-110 H Performed by cer tified precision thread grinder operator at [facility] GLUCOSE [id number] 17:32:00* Test Item Value Reference Range Interpretation Comme nts GLUCOSE BEDSIDE (test code = GLUBED) 79 MG/DL 70-110 N Performed by cer tified precision thread grinder operator at [facility] GLUCOSE [id number] 12:14:00* Test Item Value Reference Range Interpretation Comme nts GLUCOSE BEDSIDE (test code = GLUBED) 98 MG/DL 70-110 N Performed by cer tified precision thread grinder operator at [facility] GLUCOSE [id number] 08:36:00* Test Item Value Reference Range Interpretation Comme nts GLUCOSE BEDSIDE (test code = GLUBED) 92 MG/DL 70-110 N Performed by cer tified precision thread grinder operator at [facility] BASIC METABOLIC [id number] 07:50:00* Test Item Value Reference Range Interpretation [...] code = CA) 7.6 mg/dL 8.0-10.5 L [id number] 07:50:00* Test Item Value Reference Range Interpretation Comme nts MAGNESIUM (test code = MAG) 1.53 mg/dL 1.80-2.40 L - CTA CHEST FOR [id number] 00:00:00 [facility] : 1960 Sex: M Name: MATHEW CASTILLO [facility] : 1960 Age/S: 62 / M [address] [place] [address] Blvd Unit #: [id number] Loc: [place] [address] Phys: Sofia Cheng BOLT SAWYER Acct: [id number] Dis Date:Status: ADM IN PHONE #: [phone] Exam Date: 10/23/2022 1724 FAX #: [phone] Reason: ELEVATED D DIMER EXAMS: CPT CODE: [id number] [place] [address] PROCEDURE INFORMATION: Exam: CTA ChestWith Contrast Exam [...] right pleural effusion with right lower lobe atelectasis.Heart: Minimal anterior pericardial effusion. Lymph nodes: Unremarkable. No enlarged lymph nodes. Diaphragm: Type 4 hiatal hernia measures 7.6 cm X 6.5 cm. Stomach and bowel: Gastric fundal wall thickening, correlation with recent endoscopy is recommended to help exclude an infiltrating mucosal process. Extensive colonic wall thickening of the visualized splenic flexure compatible with colitis inc ompletely evaluated. Bones/joints: Unremarkable. No acute fracture. Soft tissues: Unremarkable. Other findings: Thoracic spurring. IMPRESSION: 1. No pulmonary embolus. 2. Extensive colonic wall thickening of the visualized splenic PAGE 1 Signed Report (CONTINUED) Name: MATHEW CASTILLO [facility] : 1960 Age/S: 62 / M [address] [place] [address] Unit #: [id number] Loc: [place] [address] Phys: Sofia Cheng BOLT SAWYER Acct: [id number] Dis Date: Status: ADM IN PHONE #: [phone] Exam Date: 10/23/2022 172 FAX #: [phone] Reason: ELEVATED D DIMER EXAMS: CPT CODE: [id number] [place] [address] (Continued) flexure compatible with colitis incompletely evaluated. 3. Small right pleural effusion with right lower lobe atelectasis. 4. Left upper lobe bronchiectasis. 5. Minimal anterior pericardial effusion. 6. Type 4 hiatal hernia measures 7.6 cm X 6.5 cm. 7. Gastric fundalwall thickening, correlation with recent endoscopy is recommended to help exclude an infiltrating mucosal process. at 2013 Reported and signed by: Hayden Rg M.D. CC: Sofia Cheng BOLT SAWYER; Salinas Dukes MD Technologist:Latoya Pérez, RT(R)(CT); . CTDI: DLP: Trnscb Date/Time: 10/23/2022 (2012) t.SDR.JT18 Orig PrintD/T: S: 10/23/2022 (2012) PAGE 2 Signed ReportGLUCOSE [id number] 20:23:00* Test Item Value Reference Range Interpretation Comme nts GLUCOSE BEDSIDE (test code = GLUBED) 123 MG/DL 70-110 H Performed by cer tified precision thread grinder operator at [facility] GLUCOSE [id number] 17:34:00* Test Item Value Reference Range Interpretation Comme nts GLUCOSE BEDSIDE (test code = GLUBED) 132 MG/DL 70-110 H Performed by [facility] tified precision thread grinder operator at [facility] GLUCOSE [id number] 11:57:00* Test Item Value Reference Range Interpretation Comme nts GLUCOSE BEDSIDE (test code = GLUBED) 118 MG/DL 70-110 H Performed by [facility] tified precision thread grinder operator at [facility] GLUCOSE [id number] 08:22:00* Test Item Value Reference Range Interpretation Comme nts GLUCOSE BEDSIDE (test code = GLUBED) 100 MG/DL 70-110 N Performed by [facility] tifTIMPIK precision thread grinder operator at [facility] BASIC METABOLIC [id number] 08:05:00* Test Item Value Reference Range Interpretation [...] code = CA) 7.8 mg/dL 8.0-10.5 L [id number] 08:05:00* Test Item Value Reference Range Interpretation Comme nts MAGNESIUM (test code = MAG) 1.72 mg/dL 1.80-2.40 L GLUCOSE [id number] 21:10:00* Test Item Value Reference Range Interpretation Comme nts GLUCOSE BEDSIDE (test code = GLUBED) 148 MG/DL 70-110 H Performed by cer tified precision thread grinder operator at [facility] GLUCOSE [id number] 17:29:00* Test Item Value Reference Range Interpretation Comme nts GLUCOSE BEDSIDE (test code = GLUBED) 102 MG/DL 70-110 N Performed by cer tified precision thread grinder operator at [facility] GLUCOSE [id number] 11:54:00* Test Item Value Reference Range Interpretation Comme nts GLUCOSE BEDSIDE (test code = GLUBED) 104 MG/DL 70-110 N Performed by [employer] [facility] tifTIMPIK precision thread grinder operator at [facility] CBC W/MANUAL [id number] 10:35:00* Test Item Value Reference Range Interpretation [...] (test code = PLTMORPH) LARGE PLATELETS GLUCOSE [id number] 07:57:00* Test Item Value Reference Range Interpretation Comme [facility] GLUCOSE BEDSIDE (test code = GLUBED) 95 MG/DL 70-110 N Performed by cer tified precision thread grinder operator at [facility] C REACTIVE [id number] 07:48:00* Test Item Value Reference Range Interpretation Comme [facility] C REACTIVE PROTEIN (test cod e = CRP) 36.0 mg/L <10.0 H BASIC METABOLIC [id number] 07:40:00* Test Item Value Reference Range Interpretation [...] code = CA) 7.3 mg/dL 8.0-10.5 L [id number] 07:40:00* Test Item Value Reference Range Interpretation Comme nts MAGNESIUM (test code = MAG) 1.50 mg/dL 1.80-2.40 L [id number] 07:04:00* Test Item Value Reference Range Interpretation Comme nts D-DIMER (test code = DDIMER) 5949 ng/mlFEU See_Comment HH Critical result called to Brigido RUIZLAB.JJ1 at 0701 10/21/22Nurse read back result and tech confirmed it's correct? YESTHROMBOSIS AND/OR PULMONARY EMBOLISM AND THE CLINICAL CUT- OFF VALUE FOR EXCLUSION (500 ng/mL FEU) OF THESE CONDITIONSIS VALIDATED BY THE BRANCH RENTAL MANAGER OF THE METHOD. A NEGATIVE D-DIMER RESULT [...] this result as normal/abnormal. - DUP VEIN [id number] 00:00:00 [facility] HUANGName: MATHEW CASTILLO : 1960 Sex: M Name: MATHEW CASTILLO [facility] Barrera Huang : 1960 Age/S: 62 / M [address] [place] [address] Unit #: [id number] Loc: [place] [address] Phys: Sikp Jaffe MD Acct: [id number] Dis Date: Status: ADM IN PHONE #: [phone] Exam Date: 10/21/2022820 FAX #: [phone] Reason: R/o DVT EXAMS: CPT CODE: [id number] DUP VEIN ASAEL 80253 PROCEDURE INFORMATION: Exam: US Duplex Lower Extremity [...] MD; Salinas Paris MD Technologist: Yesica Baker [facility] Date/Time: 10/21/2022 (911) t.SDR.AB61 Orig Print D/T:S: 10/21/2022 (911) Probe: PAGE 1 Signed Report GLUCOSE [id number] 20:40:00* Test Item Value Reference Range Interpretation Comme nts GLUCOSE BEDSIDE (test code = GLUBED) 148 MG/DL 70-110 H Performed by cer tified precision thread grinder operator at [facility] GLUCOSE [id number] 16:46:00* Test Item Value Reference Range Interpretation Comme nts GLUCOSE BEDSIDE (test code = GLUBED) 118 MG/DL 70-110 H Performed by cer tified precision thread grinder operator at [facility] GLUCOSE [id number] 16:46:00* Test Item Value Reference Range Interpretation Comme nts GLUCOSE BEDSIDE (test code = GLUBED) 122 MG/DL 70-110 H Performed by cer tified precision thread grinder operator at [facility] TROP-I HIGH [id number] 15:04:00* Test Item Value Reference Range Interpretation Comme [facility] TROP-I HIGH SENSITIVITY (test code = [...] URL. These results were obtained using Siem[employer] IM TnIHreagent. Results from different methodologies should not becompared to one another as quantitative results and URLs mayvary by method. BASIC METABOLIC [id number] 15:04:00* Test Item Value Reference Range Interpretation [...] CA) 7.1 mg/dL 8.0-10.5 L TROP-I HIGH [id number] 10:07:00* Test Item Value Reference Range Interpretation [...] URL. These results were obtained using [employer]ens [employer] IM TnIHreagent. Results from different methodologies should not becompared to one another as quantitative results and URLs mayvary by method. CBC W/AUTO [id number] 09:54:00* Test Item Value Reference Range Interpretation [...] (test code = MDIFF) NO TROP-I HIGH [id number] 09:24:00* Test Item Value Reference Range Interpretation [...] URL. These results were obtained using [employer]ens [employer] IM TnIHreagent. Results from different methodologies should not becompared to one another as quantitative results and URLs mayvary by method. GLUCOSE [id number] 08:49:00* Test Item Value Reference Range Interpretation Comme nts GLUCOSE BEDSIDE (test code = GLUBED) 102 MG/DL 70-110 N Performed by teto mcdaniel precision thread grinder operator at [facility] COMPREHENSIVE METABOLIC [id number] 02:08:00* Test Item Value Reference Range Interpretation [...] code = ALKP) 47 IUnit/L 20-125 N [id number] 02:08:00* Test Item Value Reference Range Interpretation [facility] LIPASE (test code = LIP) 57 U/L 13-57 N PROTHROMBIN [id number] 02:05:00* Test Item Value Reference Range Interpretation [facility] PROTHROMBIN TIME PATIENT (test code = PTP) [...] Infarction (to prevent recurrent infarct). THROMBOPLASTIN TIME [id number] 02:05:00* Test Item Value Reference Range Interpretation [facility] THROMBOPLASTIN TIME PARTIAL (test code = PTT) 26.1 Seconds 25.0-39.5 N Therapeutic Rang e: 50.4 - 88.3 Seconds Effective 07/21/2018 LACTIC [id number] 01:59:00* Test Item Value Reference Range Interpretation [facility] LACTIC ACID (test code = LACT) 1.1 mmol/L 0.4-1.9 N CBC W/AUTO [id number] 01:51:00* Test Item Value Reference Range Interpretation [facility] WHITE BLOOD CELL (test code = WBC) [...] = MDIFF) NO - XR CHEST 1 [id number] 00:00:00 [facility] : 1960 Sex: M FAX: Sofia Cheng NP [phone] [place]: St: [facility] FAX: Salinas Callahan Jacqui [phone] Name: ANNAMATHEW POST [facility] : 1960 Age/S: 62/M [address] [place] [address] Unit #: [id number] Loc:G.6630 [place] [address] Phys: Sofia Cheng NP Acct: [id number] Dis Date: Status: ADM IN PHONE#: [phone] Exam Date: 10/20/2022106 FAX #: [phone] Reason: Sepsis EXAMS: CPT CODE: [id number] XR CHEST 1 V 86501 PROCEDURE INFORMATION: Exam: XR Chest Exam date and time: 10/20/2022 1:02 AMAge: 62 years old Clinical indication: Pain; Other: [...] by: Reinaldo Jacobs M.D. CC: Sofia Cheng BOLT SAWYER; Salinas Dukes MD Technologist: PELON SilverR) Trnscrd Date/Time/By: 10/20/2022 (213) : By: [id number] Orig Print D/T: S: 10/20/2022 (5) PAGE 1 Signed ReportGLUCOSE [id number] 21:00:00* Test Item Value Reference Range Interpretation Comme nts GLUCOSE BEDSIDE (test code = GLUBED) 135 MG/DL 70-110 H Performed by cer tified precision thread grinder operator at [facility] URINALYSIS [id number] 20:03:00* Test Item Value Reference Range Interpretation [...] MUCU) 1+ /LPF NONE SEEN UR SODIUM [id number] 20:03:00* Test Item Value Reference Range Interpretation Comme nts UR SODIUM RANDOM (test code = ALPHONSE) 102 MEQ/L The Reference Ra nge and Method Performance specificationshave not been established for this fluid. The test resultshould be correlated into the clinical context forinterpretation. UR PROTEIN [id number] 20:03:00* Test Item Value Reference Range Interpretation Comme nts UR PROTEIN RANDOM (test code = PROTU) 79 mg/dL UR CREATININE [id number] 20:03:00* Test Item Value Reference Range Interpretation Comme nts UR CREATININE RANDOM (test code = CREATU) 111.9 mg/dL The Reference Ra nge and Method Performance specificationshave not been established for this fluid. The test resultshould be correlated into the clinical context forinterpretation. UR OSMOLALITY [id number] 20:03:00* Test Item Value Reference Range Interpretation Comme nts UR OSMOLALITY RANDOM (test c ode = OSMOU) 575 MOS/KG 300-1000 UR OSMOLALITY [id number] 20:02:00* Test Item Value Reference Range Interpretation Comme nts UR OSMOLALITY RANDOM (test c ode = OSMOU) 575 MOS/KG 300-1000 N GLUCOSE [id number] 17:18:00* Test Item Value Reference Range Interpretation Comme nts GLUCOSE BEDSIDE (test code = GLUBED) 122 MG/DL 70-110 H Performed by cer tified precision thread grinder operator at [facility] GLUCOSE [id number] 12:48:00* Test Item Value Reference Range Interpretation Comme nts GLUCOSE BEDSIDE (test code = GLUBED) 109 MG/DL 70-110 N Performed by cer tified precision thread grinder operator at [facility] GLUCOSE [id number] 07:53:00* Test Item Value Reference Range Interpretation Comme nts GLUCOSE BEDSIDE (test code = GLUBED) 96 MG/DL 70-110 N Performed by [employer] precision thread grinder operator at [facility] BASIC METABOLIC [id number] 07:51:00* Test Item Value Reference Range Interpretation [...] code = CA) 7.5 mg/dL 8.0-10.5 L [id number] 07:51:00* Test Item Value Reference Range Interpretation Comme nts MAGNESIUM (test code = MAG) 1.65 mg/dL 1.80-2.40 L CBC W/AUTO [id number] 07:07:00* Test Item Value Reference Range Interpretation [...] (test c ode = MDIFF) NO GLUCOSE JUBJBNT3553-77-91 20:44:00* Test Item Value Reference Range Interpretation Comme nts GLUCOSE BEDSIDE (test code = GLUBED) 116 MG/DL 70-110 H Performed by cer tified precision thread grinder operator at [facility] GLUCOSE DFWNLUF9652-03-74 18:07:00* Test Item Value Reference Range Interpretation Comme nts GLUCOSE BEDSIDE (test code = GLUBED) 98 MG/DL 70-110 N Performed by cer tified precision thread grinder operator at [facility] GLUCOSE UVXQXYU3230-82-30 12:23:00* Test Item Value Reference Range Interpretation Comme nts GLUCOSE BEDSIDE (test code = GLUBED) 135 MG/DL 70-110 H Performed by cer tified precision thread grinder operator at [facility] GLUCOSE QKPFWXA4836-42-41 11:22:00* Test Item Value Reference Range Interpretation Comme nts GLUCOSE BEDSIDE (test code = GLUBED) 104 MG/DL 70-110 N Performed by cer tified precision thread grinder operator at [facility] BASIC METABOLIC [id number] 08:12:00* Test Item Value Reference Range Interpretation [...] code = CA) 7.4 mg/dL 8.0-10.5 L LPOQGYOXW3819-64-84 08:12:00* Test Item Value Reference Range Interpretation Comme nts MAGNESIUM (test code = MAG) 1.48 mg/dL 1.80-2.40 L CBC W/AUTO [id number] 08:09:00* Test Item Value Reference Range Interpretation [...] (test c ode = MDIFF) NO GLUCOSE QAVCJIJ1927-21-86 05:56:00* Test Item Value Reference Range Interpretation Comme nts GLUCOSE BEDSIDE (test code = GLUBED) 104 MG/DL 70-110 N Performed by cer tified precision thread grinder operator at [facility] GLUCOSE IMKRVRT7094-50-88 03:31:00* Test Item Value Reference Range Interpretation Comme nts GLUCOSE BEDSIDE (test code = GLUBED) 129 MG/DL 70-110 H Performed by cer tified precision thread grinder operator at [facility] GLUCOSE MPMWRCU3064-63-10 12:50:00* Test Item Value Reference Range Interpretation Comme nts GLUCOSE BEDSIDE (test code = GLUBED) 177 MG/DL 70-110 H Performed by cer tified precision thread grinder operator at [facility] CBC W/AUTO [id number] 10:14:00* Test Item Value Reference Range Interpretation [...] 0.00 x10 3/uL 0.0-0.1 N VITAMIN D 33-QQXGQXK6160-38-13 08:19:00* Test Item Value Reference Range Interpretation Comme nts VITAMIN D 25-HYDROXY (test c ode = VITD25) 25.5 ng/mL 30-100 L Indication for Test: PTH DisorderCOMPREHENSIVE METABOLIC [id number] 08:14:00* Test Item Value Reference Range Interpretation [...] code = ALKP) 62 IUnit/L 20-125 N KAYVJBZUTAK4311-63-52 08:14:00* Test Item Value Reference Range Interpretation Comme nts PHOSPHOROUS (test code = PHOS) 2.6 MG/DL 2.5-4.9 N NLOURKYRU6395-91-35 08:14:00* Test Item Value Reference Range Interpretation Comme nts MAGNESIUM (test code = MAG) 1.50 mg/dL 1.80-2.40 L GLUCOSE [id number] 07:40:00* Test Item Value Reference Range Interpretation Comme nts GLUCOSE BEDSIDE (test code = GLUBED) 105 MG/DL 70-110 N Performed by cer tified precision thread grinder operator at [facility] GLUCOSE PDNYZMI2069-33-94 17:26:00* Test Item Value Reference Range Interpretation Comme [facility] GLUCOSE BEDSIDE (test code = GLUBED) 113 MG/DL 70-110 H Performed by cer violeta precision thread grinder operator at [facility] PROTHROMBIN [id number] 15:23:00* Test Item Value Reference Range Interpretation Comme [facility] PROTHROMBIN TIME PATIENT (test code = [...] (to prevent recurrent infarct). TSH REFLEX TO [id number] 14:32:00* Test Item Value Reference Range Interpretation Comme [facility] TSH REFLEX TO FT4 (test code = TSHREFLEX) 1.59 IU/mL 0.42-5.47 N HGBA1C%2022-10-16 14:19:00* Test Item Value Reference Range Interpretation Comme [facility] HGBA1C% (test code = HGBA1C%) 5.5 %A1C 4.8-6.0 N JUEBEMOWT3597-36-76 14:13:00* Test Item Value Reference Range Interpretation Comme [facility] MAGNESIUM (test code = MAG) 1.91 mg/dL 1.80-2.40 N COMPREHENSIVE METABOLIC EEYKR0661-71-33 14:13:00* Test Item Value Reference Range Interpretation Comme [facility] SODIUM (test code = NA) 138 [...] = ALKP) 62 IUnit/L 20-125 N GLUCOSE UBTPSZJ5182-73-82 12:54:00* Test Item Value Reference Range Interpretation Comme nts GLUCOSE BEDSIDE (test code = GLUBED) 102 MG/DL 70-110 N Performed by cer tified precision thread grinder operator at [facility] GLUCOSE [id number] 10:14:00* Test Item Value Reference Range Interpretation Comme nts GLUCOSE BEDSIDE (test code = GLUBED) 110 MG/DL 70-110 N Performed by [employer] precision thread grinder operator at [facility] CBC W/AUTO SDIW4900-34-42 05:58:00* Test Item Value Reference Range Interpretation [...] Notes Date/Time Note Provider Source 2023-02-14 02:12:00 [id number] VK0aht/icxa1v1aj0dc1zDxYWUvW0 +un6GKJEoPG2KB/gNcIG6pcDS/c4316-67-74O26:12:00 [facility] ([facility])Discharge SummaryREPORT#:[id number] REPORT STATUS: SignedREPORT INITIALIZATION DATE:02/14/23 TIME: 211 PATIENT: MATHEW CASTILLO UNIT #: [id number]#: [id number] ROOM/BED: 5507-1DOB: [birth year] AGE: 62 SEX: M [...] HYDRONEPHROSIS J98.11 ATELECTASIS N17.9 ACUTE KIDNEY FAILURE, UEHHIJHHPINZ11.8 OTHER RETENTION OF URINE D72.829 ELEVATED WHITE BLOOD CELL COUNT, UNSPECIFIED E83.39 OTHER DISORDERS OF PHOSPHORUS METABOLISM F20.9 SCHIZOPHRENIA, UNSPECIFIED E83.42 HYPOMAGNESEMIA I10 ESSENTIAL (PRIMARY) HYPERTENSION 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 [...] (Auto) (14.0 - 32.0 %) 7.1 L Ll[place] % (Auto) (4.8 - 9.0 %) 8.1 Eos % (Auto) (0.3 - 3.7 %) 0.4 Baso % (Auto) (0.0 - 2.0 %) 0.1 Neut # (Auto) (2.0 - 7.6 x10 3/uL) 9.37 H Lymph # (Auto) (1.0 - 3.8 x10 3/uL) 0.79 L Llano # (Auto) (0.1 - 0.8 x10 3/uL) [...] 3/uL) 0.[address] ABD PELVIS W/CONT 78599 EXAM: CT abdomen and pelvis with contrast [...] Care Discharge InstructionsAdditional Discharge Routines: PCP Follow-Up, Postie Follow-Up)( Diet: Regular Follow-up AppointmentsPCP follow up: PCP: Lakhwinder Guillermo MD PCP follow up timeframe: In 5 daysAttending Physician: Attending Physician: Salinas Alba MD Attending physician follow up timeframe: In 1-2 weeksConsulting provider 1: Provider 1: Dave Jones MD Specialty: Urology Consult follow up timeframe: In 1-[address] [place] [address] #:[phone] OF REPORTDSDischarge keoamqr7681-47-36L77:12:00G.OYMO23632189-9521JSIa ailable for patient ejhvMSVPNFHPJILLVL3183-20-43P75:16:15 [facility] 2023-02-04 04:06:00 [id number] 6vLnm5hdf5MXNRbwwWQ7rccb61Z26 TWjX+D/YbrNUtlUzvZ9R44+tI0A5999-87-63Q31:06:00 [facility] ([facility])Discharge SummaryREPORT#:[id number] REPORT STATUS: SignedREPORT INITIALIZATION DATE:02/04/23 TIME: 0406 PATIENT: MATHEW CASTILLO UNIT #: [id number]#: [id number] ROOM/BED: RadhaP156-2UFN: 58 AGE: 62 SEX: M ATTEND: Salinas [...] lift yesterday by Dr. Jones transferred from [place] for urology evaluation secondary tohematuria after bladder irrigation failed. Patient was seen and evaluated by Dr. 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 [facility] with [facility].Abnormal labs: WBC [...] Ox 100 01/11 1631 B/P 135/84 01/11 163 B/P Mean 100.8 01/11 163 O2 Delivery [...] range of motion, normal sensory, normal motor functionNeuro/MICA MINER BLASTING: alert, oriented X 3Skin: dry, intact, no [...] % (Auto) (14.0 - 32.0 %) 20.8 Llano % (Auto) (4.8 - 9.0 %) 7.7 Eos % (Auto) (0.3 - 3.7 %) 8.1 H Baso % (Auto) (0.0 - 2.0 %) 0.7 Neut # (Auto) (2.0 - 7.6 x10 3/uL) 4.51 Lymph # (Auto) (1.0 - 3.8 x10 3/uL) 1.51 Llano # (Auto) (0.1 - 0.8 x10 3/uL) [...] 3/uL) 0.[address] ABD PELVIS W/CONT 94231 H 20 TIME OF STUDY: 01/04/2023 7:55 [...] Care Discharge InstructionsAdditional Discharge Routines: PCP Follow-Up, Postie Follow-Up)( Diet: Cardiac Follow-up AppointmentsPCP follow up: PCP: Lakhwinder Guillermo MD PCP follow up timeframe: In 5 days Special instructions:CALL TO MAKE APPOINTMENTConsulting provider 1: Provider 1: Dave Jones MD Specialty: Urology Special instructions:CALL TO SCHEDULE APPOINTMENT at [address] [facility] #:[phone] OF REPORTDSDischarge gfsdjrd4207-76-21P56:06:00G.HOBB49338803-3260HFKl ailable for patient vpdyMMYJHRVPIRFSBZ8239-26-64E83:36:15 [facility] 2023-01-27 18:31:00 [id number] c4pDWc/QKUjerh/txKdsf0QxfAGS8 DqDAgMQt3h2LK17A6ie32UboyKP7514-03-90R72:31:68878 3-0230 [place] [address] PATIENT NAME: MATHEW CASTILLO ADMIT DATE: 01/06/23ACCOUNT NO: [id number] ROOM NO: [facility] AGE: 62 REPORT TYPE: 360 - QUERY RESPONSE DOCUMENT SEX: M ADMITTING PHYSICIAN:Salinas Alba MD ATTENDING PHYSICIAN:Salinas Alba MD Provider Query QUERY TEXT: Condition General 360MD Query related questions should be directed to: [facility] Coding Query Helpline [Based on the below [...] AM at 1831 PATIENT NAME: MATHEW CASTILLO noteG.[id number] for patient ovuxHGCYGEKSRJTIDK7892-13-52F11:31:38 [facility] 2023-01-27 13:09:00 [id number] fqFWbug+aseyPppzw/B0HvyyU+/8Y tER/ckczNXs2xi++UksU1b8XeDe9395-09-44Y60:09:28443 3-0114 [place] [address] PATIENT NAME: MATHEW CASTILLO ADMIT DATE: 01/06/23ACCOUNT NO: [id number] ROOM NO: G.C146 AGE: 62 REPORT TYPE: 360 - QUERY RESPONSE DOCUMENT SEX: M ADMITTING PHYSICIAN:Salinas Alba MD ATTENDING PHYSICIAN:Salinas Alba MD Provider Query QUERY TEXT: Condition General 360MD Query related questions should be directed to: [facility] Coding Query Helpline [Based on your medical judgement and the clinical indicators listed below kindly specify the underlying cause of the patient's heamaturia(Hematuria due to bladder lift surgery, hematuria due to UTI, hematuria unspecified, or other more appropriate diagnosis)?.] The patient's Clinical Indicators include:62-year-old male with last medical history of, BPH, s/p bladder lift yesterdayby Dr. Jones transferred from [place] for urology evaluation secondary tohematuria after bladder [...] AM at 1309 PATIENT NAME: MATHEW CASTILLO noteG.[id number] for patient gbjaJSOHAHJXHAKJCM1852-63-26P72:10:17 [facility] 2023-01-27 13:09:00 [id number] KNEPmbQ5ExI1uO1SHJfnYkf3nyv7g TNVjP8hhtlOZvO7MMb/1nkUPAcy0045-00-34A15:09:54442 3-0115 [place] [address] PATIENT NAME: MATHEW CASTILLO ADMIT DATE: 01/06/23ACCOUNT NO: [id number] ROOM NO: G.C146 AGE: 62 REPORT TYPE: 360 - QUERY RESPONSE DOCUMENT SEX: M ADMITTING PHYSICIAN:Salinas Alba MD ATTENDING PHYSICIAN:Salinas Alba MD Provider Query QUERY TEXT: Condition General 360MD Query related questions should be directed to: [facility] Coding Query Helpline [Based on your clinical [...] Delivery Room air 01/04 1926Temp 37.4 01/04 1926Pulse 102 01/04 1926Resp 16 01/04 1926Leukocytosis, UTI (urinary tract infection)WBC (4.5 - 11.0 x10 3/uL) 16.7 H : Ed physician record 01/04/2023His urine culture has shown growth of Pseudomonas aeruginosa and 1out of 2 blood culture has shown growth of Enterococcus faecalis.TheEnterococcus faecalis growing in 1 blood culture, likely could be eithercontaminant or territory account representative of transient bacteremia: progress note 01/11/2023 Options provided:-- Respond - Create new note now-- Dismiss - Not applicable / Not valid-- Dismiss - Clinically unable to determine / Unknown-- Assign to another provider QUERY RESPONSE: sepsis was not confirmed, patient had localized infection Query created by: MADY PEREZ on 01/22/2023 3:09 AM at 1309 PATIENT NAME: MATHEW CASTILLO noteG.[id number] for patient cdlkDXCQQMAPQDDWPG3240-17-71T87:10:27 [facility] 2023-01-22 17:40:00 [id number] zOT0KyTM5ClzdlPCzM5YnH3TIJZiz hY6qnnNntwphsJimlIJgSWrjeas4010-71-47Z14:40:00 [facility] ([facility])Internal Medicine Prog. NoteREPORT#:[id number] REPORT STATUS: SignedREPORT INITIALIZATION DATE:01/22/23 TIME: 1740 PATIENT: MATHEW CASTILLO UNIT #: [id number]#: [id number] ROOM/BED: 5507-1DOB: [birth year] AGE: 62 SEX: M ATTEND: Salinas Alba I MDADM AUTHOR: Sofia Cheng NPREPT SERVICE DT/TIME: 01/22/23 1740* ALL edits or amendments must be made on the electronic/computer document * Objective GeneralVS/I O:Vital SignsDate Temp Pulse Resp B/P B/P Mean Pulse Ox IsK833/17-01/22 36.6-37.0 78-88 14-20 109-137/64-82 80.9-100.0 95-98 Last [...] Sodium Chloride (SODIUM CHLORIDE 0.9%) 1,000 ML .X71A63O IV Haloperidol (HALDOL) 10 MG BID PO [...] (Auto) (14.0 - 32.0 %) 9.8 L Llano % (Auto) (4.8 - 9.0 %) 9.0 Eos % (Auto) (0.3 - 3.7 %) 5.7 H Baso % (Auto) (0.0 - 2.0 %) 0.4 Neut # (Auto) (2.0 - 7.6 x10 3/uL) 7.35 Lymph # (Auto) (1.0 - 3.8 x10 3/uL) 0.97 L Llano # (Auto) (0.1 - 0.8 x10 3/uL) [...] notes:discharged see discharge summery at 2132 RPT #:[id number] OF REPORTPRProgress oifk5678-95-10H52:40:00G.RGBE00554604-7617MTWaafm able for patient njhmXWWOFLFEZMMKBU7513-51-28E28:33:02 [facility] 2023-01-22 12:19:00 [id number] MJ/E7rraYxUWJouLbniMjXdyx8W// ICx6z1gIm+EiQOkhkOq+ZvW63us6300-17-45Z92:19:00 [facility] ([facility])Nephrology Consultation NoteREPORT#:[id number] REPORT STATUS: SignedREPORT INITIALIZATION DATE:01/22/23 TIME: 1218 PATIENT: MATHEW CASTILLO UNIT #: [id number]#: [id number] ROOM/BED: [facility]71DOB: [birth year] AGE: 62 SEX: M ATTEND: Salinas Alba MDA AUTHOR: Carmen KempPREPT SERVICE DT/TIME: 01/22/23 1219* ALL edits or [...] thepatient given empirc abx and transferred to [facility] yesterday for furtherevaluation and management. Initial VS [...] PRN 01/21 2330 AC (APRESOLINE) IV 04/21 2328 Central Nervous System Agents Sig/Mark Start time Last Medication Dose Route Stop Time Status Admin Acetaminophen 650 MG Q4H PRN PRN 01/21 2330 AC (TYLENOL) PO 04/21 232 Hydrocodone Bitart/ 1 TAB Q6H PRN PRN 01/21 2330 AC Acetaminophen PO 01/26 2329 (NORCO 7.5/325 [...] Time Status Admin Sodium Chloride 1,000 ML .G25K38Z 01/21 2330 AC 01/22 (SODIUM CHLORIDE IV [...] Sodium Chloride (SODIUM CHLORIDE 0.9%) 1,000 ML .T77J49H IV Haloperidol (HALDOL) 10 MG BID PO [...] catheter, urineExtremities: no edema ResultsFindings/Data:Laboratory Tests 01/22 06 Chemistry Sodium (134 - 147 mEq/L) 137 [...] (Auto) (14.0 - 32.0 %) 9.8 L Llano % (Auto) (4.8 - 9.0 %) 9.0 Eos % (Auto) (0.3 - 3.7 %) 5.7 H Baso % (Auto) (0.0 - 2.0 %) 0.4 Neut # (Auto) (2.0 - 7.6 x10 3/uL) 7.35 Lymph # (Auto) (1.0 - 3.8 x10 3/uL) 0.97 L Ll[place] # (Auto) (0.1 - 0.8 x10 3/uL) [...] 264 mGy-cm CTDI: 212 mGy Impression By: Shaista0 - John Berumen M.D. Diagnosis, Assessment Plan [...] and . at 1923 at 1933 RPT #:[id number] OF REPORTZJOdcpjcenieco9366-52-33S53:19:00G.PDOC2 1447197-5285ZPQpidumbid for patient udanUYDJTPRCOOJWEW7501-09-35C46:23:39 [facility] 2023-01-21 19:40:00 [id number] GFFA+AFHimxdUAKSHanlivZ9+XbyB Y7wULtpIfLKi25bOB0IQdrhi4Cm5092-71-59T45:40:00 [facility])Urology Consult NoteREPORT#:[id number] REPORT STATUS: SignedREPORT INITIALIZATION DATE:01/21/23 TIME: 1939 PATIENT: MATHEW CASTILLO UNIT #: [id number]#: [id number] [address] [birth year] AGE: 62 SEX: M ATTEND: [...] at outside hospital and was transferred to [place] with acute renal failure and urinary retention. Outside labs showed creatinine of 5.6, GFR 11. They were able to place a catheter at the outside hospital and his creatinine currently is 2.6 GFR 27. Patient feels overall well he has a [address] [place] [address] that is patent and draining [...] Ox 98 01/21 162 B/P 117/73 01/21 1628 B/P Mean 87.3 01/22 1628 Temp 98.2 01/22 1628 Pulse 82 01/21 1628 Resp 16 01/21 162 O2 Delivery Room air 01/22 516 24 [...] (Auto) (14.0 - 32.0 %) 7.1 L Ll[place] % (Auto) (4.8 - 9.0 %) 8.1 Eos % (Auto) (0.3 - 3.7 %) 0.4 Baso % (Auto) (0.0 - 2.0 %) 0.1 Neut # (Auto) (2.0 - 7.6 x10 3/uL) 9.37 H Lymph # (Auto) (1.0 - 3.8 x10 3/uL) 0.79 L Llano # (Auto) (0.1 - 0.8 x10 3/uL) [...] in outside hospital and was transferred to [place]. He has indwelling Black placed from the [...] [facility] at 1949 RPT #:[id number] OF REPORTWMSrvniytifqwf1835-69-68K30:40:00G.PDOC2 6395519-2566LOBewapbjsd for patient ozijEARKAYALZNWLCF1086-37-42R59:48:32 [facility] 2023-01-21 10:48:00 [id number] vzE8uc+UBW1k7QDsiz3o5z2EKE138 BrpNAnDcjW1Y1cMzN+9HzMkSp8f5466-23-89B10:48:00 [facility] ([facility])History Physical - AdultREPORT#:[id number] REPORT STATUS: SignedREPORT INITIALIZATION DATE:01/21/23 TIME: 1048 PATIENT: MATHEW CASTILLO UNIT #: [id number]#: [id number] ROOM/BED: G5507-1DOB: [birth year] AGE: 62 SEX: M ATTEND: Salinas Alba I [facility] AUTHOR: Sofia Cheng NPREPT SERVICE DT/TIME: [...] range of motion, normal sensory, normal motor functionNeuro/MICA MINER BLASTING: alert, oriented X 3Skin: dry, intact, no [...] (Auto) (14.0 - 32.0 %) 7.1 L Ll[place] % (Auto) (4.8 - 9.0 %) 8.1 Eos % (Auto) (0.3 - 3.7 %) 0.4 Baso % (Auto) (0.0 - 2.0 %) 0.1 Neut # (Auto) (2.0 - 7.6 x10 3/uL) 9.37 H Lymph # (Auto) (1.0 - 3.8 x10 3/uL) 0.79 L Llano # (Auto) (0.1 - 0.8 x10 3/uL) [...] range of motion, normal sensory, normal motor functionNeuro/MICA MINER BLASTING: alert, oriented X 3Skin: dry, intact, no [...] clinical course at 0300 at 1108 RPT #:[id number] OF REPORTHPHistory and physical aqrfcwaxjfs2691-06-15L58:48:00G.VKFJ63279877-6914 AVAvailable for patient ydesFICDYWKUFSPCDS4307-36-52A34:00:45 [facility] 2023-01-21 05:27:00 [id number]/Lisa vBHAqN1qOM+/C6cbpZHLJD/wjkHzc cfaB41GnVpjCA04IHm7bb2ATj2G5651-26-30Y74:27:00 [facility] PROVID[facility] REPORTREPORT#:[id number] REPORT STATUS: SignedDATE:01/21/23 TIME: 526 PATIENT: MATHEW CASTILLO UNIT #: [id number]#: [id number] [address] S[address]: M PCP PHYS: Lakhwinder Guillermo MDSERVICE AUTHOR: Elizabeth Davenport APRNNP * ALL edits or amendments must be made on the electronic/computer document * Elizabeth Davenport 01/21/23 0527:HPI-General Illness Free Text HPI NotesFree Text HPI Cfaky02-xwdj-riw male with PMH as listed below presents to the ER as a transfer from [facility] for diagnoses of ARF, urinary retention. Patient presented to the ER for evaluation of abdominal pain and urine retention that started 1 week ago after having his black catheter removed. A 14fr coude catheter was placed. Diagnostic w/u noted WBC of 14, creatinine 5.6, GFR 11, IDL548. Pt was given cefepime 1 g at 00 37, Merrem 500 mg at 01 56 and 1 L normal saline bolus SUPPORT MERCHANDISER upon arrival, patient notes improved but not completely resolved lower abdominal pain. He denies any additional symptoms such as recentfever, chest pain, shortness of breath, N/V/D/C, testicular pain or any other symptoms. GeneralInitial Greet Date/Time 01/21/23 0514PCPhatopher, uroAMIN, PCP, [facility]id PresentationChief Complaint __ (urine retention)Hx Obtained From [...] No palpable masses or pulsatile masses. Negative [place] Sign. [facility]GU: Indwelling Black, straw-colored, non-cloudy urine, 600mlExt: [...] (Auto) (14.0 - 32.0 %) 7.1 L Ll[place] % (Auto) (4.8 - 9.0 %) 8.1 Eos % (Auto) (0.3 - 3.7 %) 0.4 Baso % (Auto) (0.0 - 2.0 %) 0.1 Neut # (Auto) (2.0 - 7.6 x10 3/uL) 9.37 H Lymph # (Auto) (1.0 - 3.8 x10 3/uL) 0.79 L Ll[place] # (Auto) (0.1 - 0.8 x10 3/uL) [...] kidney injury)Secondary Impressions: Obstructive uropathy [facility] Sal[facility] MD [facility] Physician Hospitalist Request Time 0623 [...] the patient along with involvement of the PA/BOLT SAWYER. I agree with the PA/notching press operator findings and plan. I have performed all aspects of MDM as documented including: evaluation of the patient/patient's condition(s), review and analysis of available data, and determinationof risk of patient management decisions. at 2248 at 1025RPT #:[id number] OF REPORTEDEmernorthwest health physicians' [facility] mgihfe9477-15-69G79:27:00G.UZNS98288933-8403RXOlq ilable for patient hkvwBTQFKMIIDDYCJF6642-44-53E10:46:19 [facility] 2023-01-15 09:31:00 [id number] BdJllnRhddLzk84DXtHVA/c9h4qOR 38xvlynRJS7E0Q3LxFH8W740RUM6686-55-89W15:31:29158 1-[address] [address] PATIENT NAME: MATHEW CASTILLO ADMIT DATE: 01/06/23ACCOUNT NO: [id number] ROOM NO: C146 AGE: 62 REPORT TYPE: 360 - QUERY RESPONSE DOCUMENT SEX: M ADMITTING PHYSICIAN:Salinas Alba MD ATTENDING PHYSICIAN:Salinas Alba MD Provider Query QUERY TEXT: Clarification Rule In Rule Out 360MD Query related questions should be directed to: [facility] Coding Query Help-line Based on your clinical [...] AM at 0931 PATIENT NAME: MATHEW CASTILLO noteG.[id number] for patient zzniLVDAXRUIQKVGFV6975-76-35L77:31:59 [facility] 2023-01-11 17:08:00 [id number] 9WrdRTo+TD9rscMGGgPskf1cfczzb 1U4zy5rMJdZpBAfPHJoAd8mEp0Z6638-56-78V85:08:46484 7-0170 [place] [address] PATIENT NAME: MATHEW CASTILLO ADMIT DATE: 01/06/23ACCOUNT NO: [id number] ROOM NO: [facility] AGE: 62 REPORT TYPE: PROGRESS NOTE SEX: [...] he was admitted through Emergency Room to [facility] facility [facility], and from there, he was transferred to [facility]. The patient PATIENT NAME: MATHEW CASTILLO was evaluated by Urology Service. He was placed on broad-spectrum IVantibiotics. His urine culture has shown growth of Pseudomonas aeruginosa and 1out of 2 blood culture has shown growth of Enterococcus faecalis. TheEnterococcus faecalis growing in 1 blood culture, likely could be eithercontaminant or territory account representative of transient bacteremia. Clinically is doingfairly well. His urine culture has shown growth of Pseudomonas aeruginosa. Fornow, we will continue him on the present treatment, and once he is ready to bedischarged home, we will switch him to oral ciprofloxacin. Discussed with thepatient's nursing staff and with MARLENA Cheng. Dictated By: Skip Jaffe MD Date Dictated: 01/11/2023 17:08:17Date Transcribed: 01/11/2023 18:52:55HA/Nicole #: [id number] ID: [id number] Authenticated and Edited by Skip Jaffe MD On 01/22/23 5:19:12 AM at 0520 PATIENT NAME: MATHEW CASTILLO [id number]:52:00G.[id number] ble for patient [id number]:21:34 [facility] 2023-01-10 21:43:00 [id number]+PPQmmBxkgp [id number]:43:00 [facility])Internal Medicine Prog. NoteREPORT#:[id number] REPORT STATUS: SignedREPORT INITIALIZATION DATE:01/10/23 TIME: 2142 PATIENT: MATHEW CASTILLO UNIT #: [id number]#: [id number] [address] AGE: 62 SEX: M ATTEND: [place] [facility] AUTHOR: Sofia Cheng NPREPT SERVICE DT/TIME: 01/10/232142* ALL edits or amendments must be made on the electronic/computer document * SubjectiveChief complaint:HematuriaHPI:62-year-old male with last medical history of, BPH, s/p bladder lift yesterday by Dr. Jones transferred from [place] for urology evaluation secondary tohematuria after bladder irrigation failed. pt was seen and evaluated by Dr. 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 Last admitted to [facility] on 10/16/22 with urinary retention. Abnormal labs: [...] MLSodium Chloride (SODIUM CHLORIDE 0.9%) 1,000 ML .J72M83K IV (DC) Sodium Chloride (SODIUM CHLORIDE 0.9%) [...] range of motion, normal sensory, normal motor functionNeuro/MICA MINER BLASTING: alert, oriented X 3Skin: dry, intact, no gross abnormalitiesPsychiatry: no hallucinations, normal affect, normal judgment/insight, normal mood, not homicidal, not suicidal Free Text DxA P NotesFree text DxA P notes:Assessment:62-year-old male with last medical history of, BPH, s/p bladder lift yesterday by Dr. Jones transferred from [place] for urology evaluation secondary tohematuria after bladder irrigation failed. pt was seen and evaluated by Dr. 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 Last admitted to [facility] on 10/16/22 with urinary retention.Abnormal labs: WBC [...] electrolytesRepeat labsFurther recommendation based on patient's clinical xnddin7201/06/2023Vital signs within normal limitsBlood culture shows Enterococcus [...] urology outpatient at 0024 at 0814 RPT #:[id number] OF REPORTPRProgress aufx6506-98-71G42:43:00G.VXGF04566363-2363VDHudqo able for patient rajkCUVMDHAAOVAQMX0053-62-97P81:25:19 [facility] 2023-01-10 20:39:00 [id number]/Z+Wz PgKC1xnY8CoQJZUiaOTqluz1OTWLC rYAifLIYN1ohh4nK2RCPDe6o+kp9943-19-42P20:39:00 [facility] ([facility])Infectious Dis. Progress NoteREPORT#:[id number] REPORT STATUS: SignedREPORT INITIALIZATION DATE:01/10/23 TIME: 2038 PATIENT: MATHEW CSATILLO UNIT #: [id number]#: [id number] [address] AGE: 62 SEX: M ATTEND: [...] home on oral ciprofloxacin. at 0244 RPT #:[id number] OF REPORTPRProgress ivro1126-77-20R62:39:00G.TWZH92796947-1998SCSozzj able for patient dhztPAVGQIPDLZDDJT6231-57-45K59:44:38 [facility] 2023-01-10 08:39:00 [id number] EM+NNpSp0/QEB93Mm3Gsax/zJTMUe eDhGbYsHmLxzbogIOitJJ/D2w0y6139-93-86U09:39:91969 6-[address] [address] PATIENT NAME: MATHEW CASTILLO ADMIT DATE: 01/06/23ACCOUNT NO: [id number] ROOM NO: [facility] AGE: 62 REPORT TYPE: PROGRESS NOTE SEX: [...] Date Dictated: 01/10/2023 08:39:27Date Transcribed: 01/10/2023 09:42:11HA/KYLE Ursyztv ID: [id number] Authenticated and Edited by Skip Jaffe MD On 01/22/23 5:19:04 AM at 0520 PATIENT NAME: MATHEW CASTILLO yjcg1626-34-31C24:42:00G.PST27007786-3819FCEmlhuw ble for patient czvxWFPGJABRWFZLLW5973-06-70P00:21:54 [facility] 2023-01-09 22:29:00 [id number] pI1Rxq6qNEBck974sCsK5HlifyGoz spXF75kdERrL0ZIDBIJ18zzSk5a7332-12-13C19:29:00 [facility] ([facility])Internal Medicine Prog. NoteREPORT#:[id number] REPORT STATUS: SignedREPORT INITIALIZATION DATE:01/09/23 TIME: 2228 PATIENT: MATHEW CASTILLO UNIT #: [id number]#: [id number] [address] AGE: 62 SEX: M ATTEND: Salinas Alba I MDABRADEN AUTHOR: Sofia Cheng NPREPT SERVICE DT/TIME: 01/09/232228* ALL edits or amendments must be made on the electronic/computer document * SubjectiveChief complaint:HematuriaHPI:62-year-old male with last medical history of, BPH, s/p bladder lift yesterday by Dr. Jones transferred from [place] for urology evaluation secondary tohematuria after bladder irrigation failed. pt was seen and evaluated by Dr. 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 Last admitted to [facility] on 10/16/22 with urinary retention. Abnormal labs: [...] MLSodium Chloride (SODIUM CHLORIDE 0.9%) 1,000 ML .V29L85I IV Sodium Chloride (SODIUM CHLORIDE 0.9%) 1,000 ML BOLUS IV ResultsFindings/Data:Laboratory Tests 01/09/23 0549:[Embedded Image Not Available]Laboratory Tests 01/09 549 Chemistry [...] % (Auto) (14.0 - 32.0 %) 20.8 Llano % (Auto) (4.8 - 9.0 %) 7.7 Eos % (Auto) (0.3 - 3.7 %) 8.1 H Baso % (Auto) (0.0 - 2.0 %) 0.7 Neut # (Auto) (2.0 - 7.6 x10 3/uL) 4.51 Lymph # (Auto) (1.0 - 3.8 x10 3/uL) 1.51 Llano # (Auto) (0.1 - 0.8 x10 3/uL) [...] range of motion, normal sensory, normal motor functionNeuro/MICA MINER BLASTING: alert, oriented X 3Skin: dry, intact, no gross abnormalitiesPsychiatry: no hallucinations, normal affect, normal judgment/insight, normal mood, not homicidal, not suicidal Free Text DxA P NotesFree text DxA P notes:Assessment:62-year-old male with last medical history of, BPH, s/p bladder lift yesterday by Dr. Jones transferred from [place] for urology evaluation secondary tohematuria after bladder irrigation failed. pt was seen and evaluated by Dr. 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 Last admitted to [facility] on 10/16/22 with urinary retention.Abnormal labs: WBC [...] electrolytesRepeat labsFurther recommendation based on patient's clinical ilpljw1901/06/2023Vital signs within normal limitsBlood culture shows Enterococcus [...] as neededContinue medications and present care at 9703 at 1290 RPT #:[id number] OF REPORTPRProgress qviq7876-87-11O02:29:00G.VAGB40600756-3741LGOcpwt able for patient mevkSXOKLAVCWYIODL4292-30-88T20:59:46 [facility] 2023-01-09 19:20:00 [id number] +qgs2FALqyEmDrSbHazbtvY8JY6DU 1PgsQZw6GVoVykY8GPNMuGdSfGz3395-27-33U93:20:00 [facility] ([facility])Infectious Dis. Progress NoteREPORT#:[id number] REPORT STATUS: SignedREPORT INITIALIZATION DATE:01/09/23 TIME: 1919 PATIENT: MATHEW CASTILLO UNIT #: [id number]#: [id number] [address] AGE: 62 SEX: M ATTEND: [...] him home on oral ciprofloxacin. at 0432 [facility] #:[id number] OF REPORTPRProgress myog3602-09-54U18:20:00G.ZDDK05197768-8494OTCifar able for patient tvdhVEOVAJLNEVMLIG4883-96-56C96:33:11 [facility] 2023-01-09 18:36:00 [id number] NtNbWb6P1nSAU9PbQakOK1z1DpGyp 1nQOLAf7f3NS3/c3ioUltux08cI9927-85-75C43:36:62911 5-[address] [place] [address] PATIENT NAME: MATHEW CASTILLO ADMIT DATE: 01/06/23ACCOUNT NO: [id number] ROOM NO: [facility]6 AGE: 62 REPORT TYPE: PROGRESS NOTE [...] was PATIENT NAME: MATHEW CASTILLO admitted to [place], and from there, he was transferred to [facility] urology followup. The patient was [...] MD Date Dictated: 01/09/2023 18:36:08Date Transcribed: 01/09/2023 20:19:12/[facility] Xjmnuio ID: [id number] Authenticated and Edited by Skip Jaffe MD On 01/22/23 5:18:55 AM at 0520 PATIENT NAME: MATHEW CASTILLO navp6886-42-89R25:19:00G.HRZ81273415-9807RQJbgenr ble for patient fhmkHKXNAOPJBMPQRE8500-98-04W39:21:54 [facility] 2023-01-09 11:30:00 [id number] UMlh1EyUC1z2oFg2+rw5K4xqzRT9B AtKOBqn63AZQeBZD980Nkyz3Eng1553-57-23Y21:30:00 [facility])Urology Progress NoteREPORT#:[id number] REPORT STATUS: SignedREPORT INITIALIZATION DATE:01/09/23 TIME: 1129 PATIENT: MATHEW CASTILLO UNIT #: [id number]#: [id number] [address]: [address] AGE: 62 SEX: M ATTEND: Salinas [...] as planned in clinic at 1131 RPT #:[id number] OF REPORTPRProgress tfqm3615-48-67N46:30:00G.CQQL93228617-2420AOLfytc able for patient nfdmCFJVDIWUTNDQXF2800-89-20D17:32:06 [facility] 2023-01-08 21:19:00 [id number] yom/ZlmVBFipusHma/gm2dYreiO4w mrxuMUzFikoPUjtOum2ggYpglfh9865-66-06B50:19:00 [facility])Internal Medicine Prog. NoteREPORT#:[id number] REPORT STATUS: SignedREPORT INITIALIZATION DATE:01/08/23 TIME: 2118 PATIENT: MATHEW CASTILLO UNIT #: [id number]#: [id number] [address] AGE: 62 SEX: M ATTEND: Salinas Alba I [facility] AUTHOR: Sofia Cheng NPREPT SERVICE DT/TIME: 01/08/232118* ALL edits or amendments must be made on the electronic/computer document * SubjectiveChief complaint:HematuriaHPI:62-year-old male with last medical history of, BPH, s/p bladder lift yesterday by Dr. Jones transferred from [place] for urology evaluation secondary tohematuria after bladder irrigation failed. pt was seen and evaluated by Dr. 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 Last admitted to [facility] on 10/16/22 with urinary retention. Abnormal labs: [...] MLSodium Chloride (SODIUM CHLORIDE 0.9%) 1,000 ML .K22E88N IV Sodium Chloride (SODIUM CHLORIDE 0.9%) 1,000 [...] % (Auto) (14.0 - 32.0 %) 22.3 Llano % (Auto) (4.8 - 9.0 %) 6.9 Eos % (Auto) (0.3 - 3.7 %) 9.9 H Baso % (Auto) (0.0 - 2.0 %) 0.9 Neut # (Auto) (2.0 - 7.6 x10 3/uL) 3.89 Lymph # (Auto) (1.0 - 3.8 x10 3/uL) 1.46 Llano # (Auto) (0.1 - 0.8 x10 3/uL) [...] range of motion, normal sensory, normal motor functionNeuro/MICA MINER BLASTING: alert, oriented X 3Skin: dry, intact, no gross abnormalitiesPsychiatry: no hallucinations, normal affect, normal judgment/insight, normal mood, not homicidal, not suicidal Free Text DxA P NotesFree text DxA P notes:Assessment:62-year-old male with last medical history of, BPH, s/p bladder lift yesterday by Dr. Jones transferred from [place] for urology evaluation secondary tohematuria after bladder irrigation failed. pt was seen and evaluated by Dr. 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 Last admitted to [facility] on 10/16/22 with urinary retention.Abnormal labs: WBC [...] electrolytesRepeat labsFurther recommendation based on patient's clinical vrvjed2701/06/2023Vital signs within normal limitsBlood culture shows Enterococcus [...] present care at 2359 at 1240 RPT #:[id number] OF REPORTPRProgress eezt7953-73-00R43:19:00G.PUWP19996692-1028YJPkrll able for patient hceaDONBFUYJVJKNTR8783-77-53W38:59:46 [facility] 2023-01-08 18:59:00 [id number] 1Z+wc2LBJSf2X+QBu/c290sliuTSH pjXvFtCkjux1lpeN8EhI/V8KYJ01615-25-06F24:59:00 [facility] ([facility])Infectious Dis. Progress NoteREPORT#:[id number] REPORT STATUS: SignedREPORT INITIALIZATION DATE:01/08/23 TIME: 1858 PATIENT: MATHEW CASTILLO UNIT #: [id number]#: [id number] [address] AGE: 62 SEX: M ATTEND: Salinas Alba I MDA AUTHOR: Skip Jaffe MDREPT SERVICE DT/TIME: 01/08/231858* [...] home on oral ciprofloxacin. at 0321 RPT #:[id number] OF REPORTPRProgress mtup7252-60-31H54:59:00G.ZWGN41308565-1601GZTokrw able for patient youiIQYRUHYVYCIDRY9347-32-39C98:21:51 [facility] 2023-01-08 18:22:00 O93537157913tss8iEa0 FRpQC56fxka5JHoAK14NzzflusnOn /ooicZvK8of5jhsXrLEzX70bdhe7045-71-41E80:22:16145 4-031 [place] [address] PATIENT NAME: MATHEW CASTILLO ADMIT DATE: 01/06/23ACCOUNT NO: [id number] ROOM NO: [facility] AGE: 62 REPORT TYPE: PROGRESS NOTE SEX: [...] 205,000. Serum sodium is 138, potassium 4.0, ojzhcuao094, bicarbonate 26, glucose 91, BUN 14, creatinine 0.8, estimated GFR is 99.calcium is 7.8, blood culture 1 out of 2 has shown growth of Enterococcusfaecalis, which is pansensitive. Another blood culture so far is negative at 72hours of incubation. Urine culture has shown growth of Pseudomonas ggynhzciou00,000 to 50,000 colony forming units. Currently, the [...] Elizabeth Kelly Dictated: 01/08/2023 18:22:31Date Transcribed: 01/08/2023 19:55:35/Trina #: [id number] ID: [id number] Authenticated and Edited by Skip Jaffe MD On 01/22/23 5:18:46 AM at 0520 PATIENT NAME: MATHEW CASTILLO xasq1572-42-61V80:55:00G.OSV35590411-1261ZGUpihsr ble for patient cmebGZSOFXHUTQAYJO5534-65-21Y35:21:54 [facility] 2023-01-08 17:58:00 [id number] v+Yksm7kqSI+bn/007ED9XD4N+hQy MnqWa7FwY7YFv7Um+i8Q+NA6gCB8617-56-88V66:58:00 [facility] ([facility])Urology Progress NoteREPORT#:[id number] REPORT STATUS: SignedREPORT INITIALIZATION DATE:01/08/23 TIME: 1757 PATIENT: MATHEW CASTILLO UNIT #: [id number]#: [id number] [address] AGE: 62 SEX: M ATTEND: [...] Ox 98 01/08 165 B/P 134/76 01/08 1656 B/P Mean 95.2 01/09 1656 O2 Delivery Room air 01/09 1656 Temp 36.7 01/09 1656 Pulse 77 01/08 1656 Resp 14 01/08 165 24 hour I O ending at 0700: [...] % (Auto) (14.0 - 32.0 %) 22.3 Llano % (Auto) (4.8 - 9.0 %) 6.9 Eos % (Auto) (0.3 - 3.7 %) 9.9 H Baso % (Auto) (0.0 - 2.0 %) 0.9 Neut # (Auto) (2.0 - 7.6 x10 3/uL) 3.89 Lymph # (Auto) (1.0 - 3.8 x10 3/uL) 1.46 Llano # (Auto) (0.1 - 0.8 x10 3/uL) [...] improved - discharge with black tomorrow at 7031 RPT #:[id number] OF REPORTPRProgress lywk3937-83-09U03:58:00G.OYCS30489244-0778PKPubch able for patient jumlDBCLJJDWWUOUUT8850-07-40I27:00:52 [facility] 2023-01-08 02:42:00 [id number]/h/v PBQjQN8D8DhrfolgoQ5+Dmu+ff7uq RQjpdtUiMBa+7RUAv8Z/F4nfnnp5377-64-40H07:42:00 [facility] ([facility])Infectious Dis. Progress NoteREPORT#:[id number] REPORT STATUS: SignedREPORT INITIALIZATION DATE:01/08/23 TIME: 024 PATIENT: MATHEW CASTILLO UNIT #: [id number]#: [id number] [address] AGE: 62 SEX: M ATTEND: [...] patient on IV Zosyn. at 0353 RPT #:[id number] OF REPORTPRProgress tcmg6369-03-84V65:42:00G.TKLI39662046-2650MVVcpmn able for patient prmaXUOIAKKMQRWEBD3873-56-18U70:54:17 [facility] 2023-01-07 21:05:00 [id number] Q+YoQQ4F6Q1ZfOBz3vtLKg5CwCBsX eKJtKLeeM7hpRvWlItN6fmq3+9P5521-00-76R44:05:00 [facility] ([facility])Internal Medicine Prog. NoteREPORT#:[id number] REPORT STATUS: SignedREPORT INITIALIZATION DATE:01/07/23 TIME: 2104 PATIENT: MATHEW CASTILLO UNIT #: [id number]#: [id number] [address] AGE: 62 SEX: M ATTEND: Salinas Alba AUTHOR: Sofia Cheng NPREPT SERVICE DT/TIME: 01/07/232104* ALL edits or amendments must be made on the electronic/computer document * SubjectiveChief complaint:HematuriaHPI:62-year-old male with last medical history of, BPH, s/p bladder lift yesterday by Dr. Jones transferred from [place] for urology evaluation secondary tohematuria after bladder irrigation failed. pt was seen and evaluated by Dr. 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 Last admitted to [facility] on 10/16/22 with urinary retention. Abnormal labs: [...] MLSodium Chloride (SODIUM CHLORIDE 0.9%) 1,000 ML .E62H56J IV Sodium Chloride (SODIUM CHLORIDE 0.9%) 1,000 [...] % (Auto) (14.0 - 32.0 %) 21.2 Llano % (Auto) (4.8 - 9.0 %) 7.2 Eos % (Auto) (0.3 - 3.7 %) 10.4 H Baso % (Auto) (0.0 - 2.0 %) 0.8 Neut # (Auto) (2.0 - 7.6 x10 3/uL) 3.56 Lymph # (Auto) (1.0 - 3.8 x10 3/uL) 1.26 Llano # (Auto) (0.1 - 0.8 x10 3/uL) [...] range of motion, normal sensory, normal motor functionNeuro/MICA MINER BLASTING: alert, oriented X 3Skin: dry, intact, no gross abnormalitiesPsychiatry: no hallucinations, normal affect, normal judgment/insight, normal mood, not homicidal, not suicidal Free Text DxA P NotesFree text DxA P notes:Assessment:62-year-old male with last medical history of, BPH, s/p bladder lift yesterday by Dr. Jones transferred from [place] for urology evaluation secondary tohematuria after bladder irrigation failed. pt was seen and evaluated by Dr. 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 Last admitted to [facility] on 10/16/22 with urinary retention.Abnormal labs: WBC [...] electrolytesRepeat labsFurther recommendation based on patient's clinical bmayid6201/06/2023Vital signs within normal limitsBlood culture shows Enterococcus [...] CBI, cleared for discharge with FoleyDiscontinue telemetry monitoringFoseneca hospital careFall precaution, follow-up labs, continue medications and present care at 2222 at 0742 RPT #:[id number] OF REPORTPRProgress oxjr8035-54-85Z17:05:00G.HDNY06400305-6826ULRvhzr able for patient ggqrDWYGNFWIFVHXMP8137-28-96Z74:22:45 [facility] 2023-01-07 16:17:00 X42586232590+OfoH38s TbT62iUuzG1lLtjHkA7Zt1/Rh0T6T xTSrJh++c22ZBu5o2D0295mlluC4304-65-60V90:17:00 [facility] Progress NoteREPORT#:[id number] REPORT STATUS: SignedREPORT INITIALIZATION DATE:01/07/23 TIME: 1616 PATIENT: MATHEW CASTILLO UNIT #: [id number]#: [id number] [address] AGE: 62 SEX: M ATTEND: Salinas Alba I [facility] AUTHOR: Dave Jones MDREPT SERVICE DT/TIME: [...] - discharge with black tomorrow at 1617 [facility] #:[id number] OF REPORTPRProgress fabh6262-50-38X75:17:00G.VSBQ07499699-1652RZLgukm able for patient qkndYJYJVNAGKIXCVA0011-59-28O36:18:01 [facility] 2023-01-07 05:20:00 [id number] OMlxm0ZbG3xn1I6OZOCezZ3O8xSTH ZsPyNBbMSKMimLRzYR6AIEtQwHd2606-96-44M55:20:91166 3-0041 [place] [address] PATIENT NAME: MATHEW CASTILLO ADMIT DATE: 01/06/23ACCOUNT NO: [id number] ROOM NO: [facility] AGE: 62 REPORT TYPE: PROGRESS NOTE SEX: [...] 01/07/2023 05:20:31Date Transcribed: 01/07/2023 05:56:47 DORADO/Nicole #: [id number] ID: [id number] Authenticated and Edited by Skip Jaffe MD On 01/22/23 5:18:20 AM at 0520 PATIENT NAME: MATHEW CASTILLO xzcp5310-44-94A93:56:00G.THF01862074-1948BWWunnww ble for patient kpgwSRDWUZDATMKCVI3190-53-41Y86:21:33 [facility] 2023-01-06 21:39:00 [id number]/Dl9a5D jOVc9T0p71qBVCRihEo8rU4Q+HZ27 dx2v2L64xUP8TT1BNZ3Sjxn0Fpn1012-54-07M62:39:00 [facility] Prog. NoteREPORT#:[id number] REPORT STATUS: SignedREPORT INITIALIZATION DATE:01/06/23 TIME: 2138 PATIENT: MATHEW CASTILLO UNIT #: [id number]#: [id number] [address]GY[address]: [address] AGE: 62 SEX: M ATTEND: Salinas Alba I [facility] AUTHOR: Sofia Cheng NPREPT SERVICE DT/TIME: 01/06/232138* ALL edits or amendments must be made on the electronic/computer document * SubjectiveChief complaint:HematuriaHPI:62-year-old male with last medical history of, BPH, s/p bladder lift yesterday by Dr. Jones transferred from [place] for urology evaluation secondary tohematuria after bladder irrigation failed. pt was seen and evaluated by Dr. 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 Last admitted to [facility] on 10/16/22 with urinary retention. Abnormal labs: [...] MLSodium Chloride (SODIUM CHLORIDE 0.9%) 1,000 ML .X31Q45X IV Sodium Chloride (SODIUM CHLORIDE 0.9%) 1,000 ML BOLUS IV ResultsFindings/Data:Laboratory Tests 01/06/23 0517:[Embedded Image Not Available]Laboratory [...] (Auto) (14.0 - 32.0 %) 11.8 L Llano % (Auto) (4.8 - 9.0 %) 7.5 Eos % (Auto) (0.3 - 3.7 %) 3.2 Baso % (Auto) (0.0 - 2.0 %) 0.4 Neut # (Auto) (2.0 - 7.6 x10 3/uL) 7.43 Lymph # (Auto) (1.0 - 3.8 x10 3/uL) 1.14 Llano # (Auto) (0.1 - 0.8 x10 3/uL) [...] range of motion, normal sensory, normal motor functionNeuro/MICA MINER BLASTING: alert, oriented X 3Skin: dry, intact, no gross abnormalitiesPsychiatry: no hallucinations, normal affect, normal judgment/insight, normal mood, not homicidal, not suicidal Free Text DxA P NotesFree text DxA P notes:Assessment:62-year-old male with last medical history of, BPH, s/p bladder lift yesterday by Dr. Jones transferred from [place] for urology evaluation secondary tohematuria after bladder irrigation failed. pt was seen and evaluated by Dr. 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 Last admitted to [facility] on 10/16/22 with urinary retention.Abnormal labs: WBC [...] electrolytesRepeat labsFurther recommendation based on patient's clinical cejbyr2601/06/2023Vital signs within normal limitsBlood culture shows Enterococcus speciesUrine culture grows gram-negative teodoro-identification and sensitivity pendingHematuria is improved.Wean CBI as tolerated per uroContinue IV antibiotics Zosyn per ID, ceftriaxone is discontinuedStarted on Cogentin, still on tamsulosin.Monitor for further bleedingPain medications as neededFollow-up cultures, labs, continue medications and supportive care at 0015 at 0740 RPT #:[id number] OF REPORTPRProgress acns6581-47-35Q66:39:00G.DKSE42561374-3080VSUchhe able for patient kjngIFGPUIFACRVJDK5437-37-14Y92:16:29 [facility] 2023-01-06 19:39:00 [id number] wGXmO0d9TkfuKN3695rz46QhL63Kl PQ/I+hHUcltR8oH3ZEww+2B1Ry88875-09-12V34:39:00 [facility] ([facility])Urology Progress NoteREPORT#:[id number] REPORT STATUS: SignedREPORT INITIALIZATION DATE:01/06/23 TIME: 1938 PATIENT: MATHEW CASTILLO UNIT #: [id number]#: [id number] [address] AGE: 62 SEX: M ATTEND: Salinas Alba I MDA AUTHOR: Dave Jones MDREPT SERVICE DT/TIME: 01/06/231938* [...] 1540 Temp 36.7 01/07 1540 Pulse 71 01/07 1540 Resp 14 01/07 1540 24 hour I O ending at 0700: 01/06 0700 01/05 1900 Intake Total 400.00 Output Total 1000 Balance -600.00 Intake, IV 400.00 Output, Urine 1000 PATIENT WEIGHT: Weight (lb): Weight (oz): Weight (kg): 70.909 Physical ExamGeneral appearance: alert, awake, orientedGenitourinary: Genitourinary: cont. bladder irrig. run. ResultsFindings/Data:Laboratory Tests: 01/06 05 Chemistry Sodium (134 - 147 mEq/L) 139 [...] (Auto) (14.0 - 32.0 %) 11.8 L Llano % (Auto) (4.8 - 9.0 %) 7.5 Eos % (Auto) (0.3 - 3.7 %) 3.2 Baso % (Auto) (0.0 - 2.0 %) 0.4 Neut # (Auto) (2.0 - 7.6 x10 3/uL) 7.43 Lymph # (Auto) (1.0 - 3.8 x10 3/uL) 1.14 Ll[place] # (Auto) (0.1 - 0.8 x10 3/uL) [...] wean cbi as tolerated at 1941 RPT #:[id number] OF REPORTPRProgress digi7782-60-49Z55:39:00G.CQJJ77202566-9516HDKoitb able for patient cbypKLBCAAMPKBBHXN4606-33-47A46:41:57 [facility] 2023-01-06 19:19:00 [id number] uuwoOV6AS3mKRwSreYuicPdNoJNkV MPiXEi1Fl0DBuhMUndvqw+hPGRa7119-49-46W37:19:00 [facility] ([facility])Infectious Dis. Progress NoteREPORT#:[id number] REPORT STATUS: SignedREPORT INITIALIZATION DATE:01/06/23 TIME: 1918 PATIENT: MATHEW CASTILLO SINCERE UNIT #: [id number]#: [id number] [facility] AGE: 62 SEX: M ATTEND: [place] [...] possibility. [place] [id number] colony-forming units of the Gram-negative rods. Identification and susceptibility is pending. Keep the patient on IV Zosyn. at 0411 RPT #:[id number] OF REPORTPRProgress hnvo2239-36-39I12:19:00G.[id number] able for patient bklkJOKWSWLIOXSJQE0309-04-57M48:11:25 [facility] 2023-01-06 17:40:00 [id number] 71JrnghyNKHFKf1+qj3emruCUDDr0 x+cLoqYP0zjzutEGIIqITwcDPnB9182-44-40O58:40:[id number] [address] PATIENT NAME: MATHEW CASTILLO ADMIT DATE: 01/06/23ACCOUNT NO: [id number] ROOM NO: GC146 AGE: 62 REPORT TYPE: CONSULTATION REPORT SEX: M ADMITTING PHYSICIAN:Salinas Alba MD ATTENDING PHYSICIAN:Salinas Alba MD CONSULTATION DATE: 01/05/2023 INFECTIOUS DISEASE CONSULTATION The patient examined, chart reviewed, old records reviewed. Thank you, Dr. Michael, for asking me to evaluate Mr. Mathew Castillo. HISTORY OF PRESENT ILLNESS: Mr. Castillo is known to me from his recent hospitalization at [facility] in 10/2022. He is a 62-year-old male with a past medical history of schizophrenia, benign prostatic hypertrophy with recurrent urinary symptomatology, history of previous episode of urinary retention due to bladder neck obstruction requiring indwelling Black catheter placement and hospitalization in October of 2022. The patient lives in [place] and he had an outpatient prostate procedure done by Dr. Dave Jones with [facility] on Friday01/03/2023 and was discharged home on the same day. The patient went back to [place]. However, subsequently, he started to notice ladan hematuria on Friday and had no other constitutional symptoms including fever or chills. The patient because of worsening hematuria decided to go to the hospital. He went to hospital in [place] and he was told to follow up with the urologist and he was transferred to the [facility]. The patient at present is hemodynamically stable [...] patient is single. He lives with his daughterin [place]. The patient has been a longtime smoker and continues to smoke. No history of IV drug use, alcohol use, or substance abuse. 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 On admission, [place] [address]. The patient had 2 blood cultures done. Urine culture is incubating. ASSESSMENT: The patient with multiple comorbidities including history of benignprostatic hypertrophy with previous episode of urinary retention requiring indwelling Black catheter placement has undergone an UroLift procedure on 01/03/2023, and subsequently was discharged on the same day; however, yesterday he started to have hematuria and was seen at a hospital in [facility] and is transferred to [facility] for further Urology evaluation. 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, and he is empirically started [...] MD Date Dictated: 01/06/2023 17:40:46Date Transcribed: 01/06/2023 21:28:36/Concepcion #: [id number] ID: [id number] by Skip Jaffe MD On 01/22/2023 05:17:37 AM at 0517 PATIENT NAME: MATHEW CASTILLO SINCERE :28:00G.PA [id number] for patient obfsRATRMRILVSMIED7019-12-94P90:18:03 [facility] 2023-01-05 23:00:00 [id number] maExZQpvuoARv1W7VTkUetfEReKnA 7uvJTV4wANSUVNoEE+A7K/XGto20034-52-03R59:00:00 [facility] ([facility])Infect Disease Consult NoteREPORT#:[id number] REPORT STATUS: SignedREPORT INITIALIZATION DATE:01/05/23 TIME: 230 PATIENT: MATHEW CASTILLO UNIT #: [id number]#: [id number] [facility] AGE: 62 SEX: M ATTEND: Salinas Alba AUTHOR: Skip Jaffe MDREPT SERVICE DT/TIME: 01/05/23 2300* ALL edits or amendments must be made on the electronic/computer document * History of Present IllnessHPI:Thank you for the consultation. Patient's current and old record reviewed. Orders initiated. See full dictated consultation report for further details. Patient is known to our service from his recent hospitalization at [facility] in October of 2022. ASSESSMENT AND PLAN: [...] Allergies:No Known Allergies (10/16/22) at 0526 RPT #:[id number] OF REPORTLNYbhvbmfbbxsz3872-81-36G45:00:00G.PDOC2 9224927-7780NRNakzkrnuk for patient ifvhROQWSXGMHWEIFW6392-02-90Z76:27:03 [facility] 2023-01-05 13:05:00 [id number] iSUeXbGjii5aLKYa18IW/UL8iO6XJ 0O0qBtkTn2E127WewAGh9R7XEjW9707-19-52U50:05:00 [facility] ([facility])Urology Consult NoteREPORT#:[id number] REPORT STATUS: SignedREPORT INITIALIZATION DATE:01/05/23 TIME: 1305 PATIENT: MATHEW CASTILLO UNIT #: [id number]#: [id number] [facility] AGE: 62 SEX: M ATTEND: Salinas [...] 1112 Pulse 88 01/06 1112 Resp 18 01/06 1112 O2 Delivery Room [...] (Auto) (14.0 - 32.0 %) 4.5 L Llano % (Auto) (4.8 - 9.0 %) 6.1 Eos % (Auto) (0.3 - 3.7 %) 0.3 Baso % (Auto) (0.0 - 2.0 %) 0.2 Neut # (Auto) (2.0 - 7.6 x10 3/uL) 15.99 H Lymph # (Auto) (1.0 - 3.8 x10 3/uL) 0.82 L Llano # (Auto) (0.1 - 0.8 x10 3/uL) [...] (Auto) (14.0 - 32.0 %) 5.4 L Llano % (Auto) (4.8 - 9.0 %) 5.3 Eos % (Auto) (0.3 - 3.7 %) 0.0 L Baso % (Auto) (0.0 - 2.0 %) 0.2 Neut # (Auto) (2.0 - 7.6 x10 3/uL) 14.77 H Lymph # (Auto) (1.0 - 3.8 x10 3/uL) 0.90 L Llano # (Auto) (0.1 - 0.8 x10 3/uL) [...] pH (5.0 - 7.0) 7.0 Ur Specific Centuria (1.005 - 1.030) 1.005 Urine Protein (NEGATIVE) [...] Alberts MD[facility] at 1312 RPT #:[id number] OF REPORTRKZytrsedxahpz9586-94-00R86:05:00G.PDOC2 [id number] for patient mlfnFQUJDXMUODEQHG3289-14-45W87:12:53 [facility] 2023-01-05 11:34:00 [id number]/t4gGg 85BwJYExFnayi0jQdahfBUnQBkRR8 vmnk+9irgicnbHmNrWophAXe4Tl8888-59-46A63:34:00 [facility] ([facility])History Physical - AdultREPORT#:[id number] REPORT STATUS: SignedREPORT INITIALIZATION DATE:01/05/23 TIME: 1133 PATIENT: MATHEW CASTILLO UNIT #: [id number]#: [id number] [address] AGE: 62 SEX: M ATTEND: Salinas Alba AUTHOR: Sofia Cheng NPREPT SERVICE DT/TIME: 01/05/23 1134* ALL edits or amendments must be made on the electronic/computer document * History of Present Illness HPIChief complaint:HematuriaHPI:62-year-old male with last medical history of, BPH, s/p bladder lift yesterday by Dr. Jones transferred from [place] for urology evaluation secondary tohematuria after bladder irrigation failed. pt was seen and evaluated by Dr. 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 Last admitted to [facility] on 10/16/22 with urinary retention. Abnormal labs: [...] range of motion, normal sensory, normal motor functionNeuro/MICA MINER BLASTING: alert, oriented X 3Skin: dry, intact, no [...] (Auto) (14.0 - 32.0 %) 4.5 L Llano % (Auto) (4.8 - 9.0 %) 6.1 Eos % (Auto) (0.3 - 3.7 %) 0.3 Baso % (Auto) (0.0 - 2.0 %) 0.2 Neut # (Auto) (2.0 - 7.6 x10 3/uL) 15.99 H Lymph # (Auto) (1.0 - 3.8 x10 3/uL) 0.82 L Llano # (Auto) (0.1 - 0.8 x10 3/uL) [...] 0.1 x10 3/uL) 0.00 01/04 01/04 01/04 2204 214 2000 Chemistry Sodium (134 - 147 [...] (Auto) (14.0 - 32.0 %) 5.4 L Llano % (Auto) (4.8 - 9.0 %) 5.3 Eos % (Auto) (0.3 - 3.7 %) 0.0 L Baso % (Auto) (0.0 - 2.0 %) 0.2 Neut # (Auto) (2.0 - 7.6 x10 3/uL) 14.77 H Lymph # (Auto) (1.0 - 3.8 x10 3/uL) 0.90 L Llano # (Auto) (0.1 - 0.8 x10 3/uL) [...] pH (5.0 - 7.0) 7.0 Ur Specific Centuria (1.005 - 1.030) 1.005 Urine Protein (NEGATIVE) [...] Report Impression - Status: SIGNED Entered: 01/04/2023 0793 IMPRESSION: 1. Prostatomegaly. Decompressed bladder with a Black in place.2. No hydronephrosis. No enhancing renal masses.3. Cholelithiasis and mildly distended gallbladder.4. Moderate hiatal hernia.Impression By: Nick Magaña M.D. Diagnosis, Assessment Plan Free Text DxA P NotesFree Text DxA P Notes:Assessment:62-year-old male with last medical history of, BPH, s/p bladder lift yesterday by Dr. Jones transferred from [place] for urology evaluation secondary tohematuria after bladder irrigation failed. pt was seen and evaluated by Dr. 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 Last admitted to [facility] on 10/16/22 with urinary retention. Abnormal labs: [...] clinical course at 0055 at 0739 RPT #:[id number] OF REPORTHPHistory and physical bkfsheecldb7311-27-86M06:34:00G.IIFB91288263-4890 AVAvailable for patient tmabAOBENIUQJZUSBJ7895-78-77G28:55:31 [facility] 2023-01-05 01:59:00 [id number]/sY3dHrQ Q62BUbUOgY4jX6dg+Q+34r1SM38nx V8tHMjdqjX5SIP4rBJWeHMHkZqA9418-17-42F69:59:00 [facility] ([facility])Clinical NoteREPORT#:[id number] REPORT STATUS: SignedREPORT INITIALIZATION DATE:01/05/23 TIME: 0159 PATIENT: MATHEW CASTILLO UNIT #: [id number]#: [id number] [address]IQG: [address] AGE: 62 SEX: M ATTEND: Salinas Alba I [facility] AUTHOR: Sofia Cheng NPREPT SERVICE DT/TIME: 01/05/23 0159* ALL edits or amendments must be made on the electronic/computer document * Clinical NoteNote:Clinical data reviewedOrders placed at 0222 RPT #:[id number] OF REPORTCLClinical pzox8626-43-58U08:59:00G.RYIH37939212-3594MATwzsx able for patient rxnnBCLXQEZUWJPURA2074-35-93A98:22:53 [facility] 2023-01-04 20:02:00 [id number]+5KrlUg 1v7hukFrU6EcIpqtogmApfDSELbk8 mfCB1i7UJ0c9G1tPyh6zhRki4/h3085-44-26F72:02:00 [facility] ([facility])EMERGENCY PROVIDER REPORTREPORT#:[id number] REPORT STATUS: SignedDATE:01/04/23 TIME: 2001 PATIENT: MATHEW CASTILLO UNIT #: [id number]#: [id number] [address]7ZDX: 62 SEX: M PCP PHYS: Lakhwinder Guillermo [...] SOB. Per daughter atbedside patient evaluated at [place] ED SUPPORT MERCHANDISER, bladder irrigation attempted without resolution of hematuria. [...] Image Not Available]Laboratory Tests: 01/04 01/04 01/04 5915 2145 2000 Chemistry Sodium (134 - 147 [...] (Auto) (14.0 - 32.0 %) 5.4 L Llano % (Auto) (4.8 - 9.0 %) 5.3 Eos % (Auto) (0.3 - 3.7 %) 0.0 L Baso % (Auto) (0.0 - 2.0 %) 0.2 Neut # (Auto) (2.0 - 7.6 x10 3/uL) 14.77 H Lymph # (Auto) (1.0 - 3.8 x10 3/uL) 0.90 L Llano # (Auto) (0.1 - 0.8 x10 3/uL) [...] pH (5.0 - 7.0) 7.0 Ur Specific Centuria (1.005 - 1.030) 1.005 Urine Protein (NEGATIVE) [...] indwelling black cath s/p urolift 1 day SUPPORT MERCHANDISER presents to ED 2/2 gross hematuria. Tachycardic [...] Hosp Physician Name Salinas Alba MD [facility] Physician Hospitalist Request Time 34 [...] MidLv Saw Pt AloneI have reviewed the PA/BOLT SAWYER's note and plan of care. I was available for consultation as needed at all times during the patient's visit in the emergency department. I agree with the clinical impression, plan and disposition. at 2148 at 0552RPT #:[id number] OF REPORTNortheast Baptist Hospital department bqasvb0525-97-18S81:02:00G.OYNO14951533-0827IAWuv ilable for patient kcjrAPMVFSBNSEFIBH2081-50-92C06:48:19 [facility] 2022-11-19 18:14:00 [id number]/HZ a9/R8fM4ZnQP2HuXDpnLOeh1xT6Yt DGj+Hbl5V5Z3sgAlXcw1RysbTXL0551-78-92R25:14:00 [facility] ([facility])Discharge SummaryREPORT#:[id number] REPORT STATUS: SignedDATE:11/19/22 TIME: 1813 PATIENT: MATHEW CASTILLO UNIT #: [id number]#: [id number] [address] [birth year] AGE: 62 SEX: M ATTEND: [...] last medical history of, BPH, transferred from [place] for urology evaluation and treatment secondary to [...] range of motion, normal sensory, normal motor functionNeuro/MICA MINER BLASTING: alert, oriented X 3Skin: dry, intact, no [...] Care Discharge InstructionsAdditional Discharge Routines: PCP Follow-Up, Postie Follow-Up)( Diet: Regular Follow-up AppointmentsPCP follow up: PCP: Yumiko Geller MD PCP follow up timeframe: In 5 days Special instructions:CAN FU WITH OWN PCPAttending Physician: Attending Physician: Salinas Alba MD Attending physician follow up timeframe: In 1-2 weeks Special instructions:CALL TO SCHEDULE AN APPOINTMENTConsulting provider 1: Provider 1: Dave Jones MD Specialty: Urology Special instructions:FOR REMOVAL OF BLACK at [address] [facility] #:[id number] OF REPORTDSDischarge cafqcgf3615-43-57R38:14:00G.YQWQ19149603-3122UJXr ailable for patient fvuaKQRSVSNDIUXSUS9627-19-93N55:32:51 [facility] 2022-10-26 20:52:00 [id number] aoXbrOo+EnndJQNmPtDOQuMp+1/fm 27Z8G2TnvfdGZ8Spl9WHxVIeHQZ7151-32-38W31:52:28007 2-[address] [place], [place] [address] PATIENT NAME: MATHEW CASTILLO ADMIT DATE: 10/16/22ACCOUNT NO: [id number] [place] [facility] AGE: 62 REPORT TYPE: PROGRESS NOTE SEX: [...] Emergency Room where he was transferred from [place] with acuteurinary retention. He had 3 liters [...] Dictated: 10/26/2022 20:52:41Date Transcribed: 10/26/2022 21:14:58HA/JORGE/Marine #: [id number] ID: [id number] Authenticated and Edited by Skip Jaffe MD On 11/02/22 2:24:00 AM at 0323 PATIENT NAME: MATHEW CASTILLO wisl3748-84-33E27:14:00G.VSI94180042-6182EXPxknzh ble for patient ratsPQYFDQLNGFMBDV2409-27-23K87:24:01 [facility] 2022-10-26 19:14:00 [id number] asOpmYfmUBVMCprYyEvK4Je9IJryN 5J7HkvGrORXUTneYS7gHyDA7cJ56483-51-81H43:14:00 [facility])Internal Medicine Prog. NoteREPORT#:[id number] REPORT STATUS: SignedDATE:10/26/22 TIME: 1913 PATIENT: MATHEW CASTILLO UNIT #: [id number]#: [id number] [address] [birth year] AGE: 62 SEX: M ATTEND: Salinas Alba I [facility] AUTHOR: Sofia Cheng BOLT SAWYER * ALL edits or amendments must be made on the electronic/computer document * SubjectiveChief complaint:Abdominal distention, hydronephrosisHPI:62-year-old male with last medical history of, BPH, transferred from [place] for urology evaluation and treatment secondary to [...] Ox 97 10/26 170 B/P 112/69 10/26 170 B/P Mean 83.3 10/26 1701 O2 Delivery Room air 10/26 1700 Temp 37.2 10/26 170 Pulse 90 10/26 170 Resp 15 10/26 170 PATIENT WEIGHT: Weight (lb): Weight (oz): Weight [...] range of motion, normal sensory, normal motor functionNeuro/MICA MINER BLASTING: alert, oriented X 3Skin: dry, intact, no gross abnormalitiesPsychiatry: no hallucinations, normal moodProblem List/A P: 1. Rupture of ureter Free Text DxA P NotesFree text DxA P notes:Assessment:62-year-old male with last medical history of, BPH, transferred from [place] for urology evaluation and treatment secondary to [...] neededRepeat labsFurther recommendation based on patient's clinical qfzybb2710/17/2022Vital signs within normal limitsHypokalemia 3.2, hypomagnesemia 1.50Renal [...] controlFollow-up electrolytes and labs, continue medications and rchhdua8410/22/2022Vital signs within normal limits, POC glucose is [...] explained to patient's daughterContinue with current medicationsFall kewxzgtzzg31/20/2023Stable, POC glucose 154Patient with Black to gravity, [...] supportive care at 2225 at 0830 RPT #:[id number] OF REPORTPRProgress vrrg0163-24-20W06:14:00G.APWN47689800-6100KZDyaax able for patient inrmTSZJCBJOTSVUFD3866-21-13Z38:25:27 [facility] 2022-10-26 13:41:00 [id number] oJrdqtwiV6bo3EgDhR1fha5sW8lim UWo92KTRnqJFMbb0jNX3cac3O4u5655-74-58A17:41:00 [facility]Ne[facility] Progress NoteREPORT#:[id number] REPORT STATUS: SignedDATE:10/26/22 TIME: 134 PATIENT: MATHEW CASTILLO UNIT #: [id number]#: [id number] [place] [facility]DOB: [birth year] AGE: 62 SEX: M ATTEND: Salinas [...] urine in his bladder. CT abdomen from [place] showed that the patient has a very [...] urine in his bladder. CT abdomen from [place] showed that the patient has a very [...] nurse and Dr. Koehler. Toby Koehler 10/26/22 181:Attestations Physician AttestationReviewed findings plan:Patient examined Renal function improved and wnl, black to gravity, -2/2 post-obstrucitve uropathy, replace electrolytes as needed, S/P antibioticscontinue flomax, Agree with above A/P at 1342 at 1813 RPT #:[id number] OF REPORTPRProgress yrtk1979-38-83U08:41:00G.HPKZ70139953-8030LYRdefr able for patient ksnrCLONMWPIQSUCGM5595-72-37S85:42:46 [facility] 2022-10-25 21:28:00 [id number] 5+wZXyHffbL9E9GNZGWxkQI93c+y5 S6BARRXTlgYNQlnBk50qp1et9jT3260-40-29L22:28:00 [facility] ([facility])Infectious Dis. Progress NoteREPORT#:[id number] REPORT STATUS: SignedDATE:10/25/22 TIME: 2127 PATIENT: MATHEW CASTILLO UNIT #: [id number]#: [id number] ROOM/BED: 6630-1DOB: [birth year] AGE: 62 SEX: M ATTEND: Salinas Alba I [facility] AUTHOR: Skip Jaffe MD * ALL [...] new nosocomial acquired infection. at 0256 RPT #:[id number] OF REPORTPRProgress gnas6663-18-35U03:28:00G.QYTM59316573-1977ELNlldw able for patient tghkPVWTTTOHBCQYGT9676-79-36Z21:57:01 [facility] 2022-10-25 19:13:00 [id number] 1l91weiRebfAGJrDZF09ht/nZAFaW zRjOXuq/zaduIAg26gBE0MChzd68033-40-60M34:13:00 [facility] ([facility] Progress NoteREPORT#:[id number] REPORT STATUS: SignedDATE:10/25/22 TIME: 1912 PATIENT: MATHEW CASTILLO UNIT #: [id number]#: [id number] [address] [birth year] AGE: 62 SEX: M ATTEND: Salinas Alba I [facility] AUTHOR: Toby Koehler MD * ALL [...] (Auto) (14.0 - 32.0 %) 10.6 L Llano % (Auto) (4.8 - 9.0 %) 4.4 L Eos % (Auto) (0.3 - 3.7 %) 2.4 Baso % (Auto) (0.0 - 2.0 %) 0.5 Neut # (Auto) (2.0 - 7.6 x10 3/uL) 12.30 H Lymph # (Auto) (1.0 - 3.8 x10 3/uL) 1.60 Llano # (Auto) (0.1 - 0.8 x10 3/uL) [...] urine in his bladder. CT abdomen from [place] showed that the patient has a very [...] urine in his bladder. CT abdomen from [place] showed that the patient has a very [...] abx per primary team. at 1914 RPT #:[id number] OF REPORTPRProgress myqw2897-52-24P61:13:00G.HTCE24859887-4891DMHahpr able for patient ouwlDRAFQNUJYJTLNR3340-35-11L77:14:52 [facility] 2022-10-25 19:12:00 [id number] mXV7Xki/zZWiH46BSvedqvelFx3MR yyueI0wY3sk0Cf2lan1TUmeTzyM9165-09-91M49:12:00 [facility])Internal Medicine Prog. NoteREPORT#:[id number] REPORT STATUS: SignedDATE:10/25/22 TIME: 1911 PATIENT: MATHEW CASTILLO UNIT #: [id number]#: [id number] [place] [facility] [place]DOB: [birth year] AGE: 62 SEX: M ATTEND: Salinas Alba I [facility] AUTHOR: Sofia Cheng NP * ALL edits or amendments must be made on the electronic/computer document * SubjectiveChief complaint:Abdominal distention, hydronephrosisHPI:62-year-old male with last medical history of, BPH, transferred from [place] for urology evaluation and treatment secondary to [...] (Auto) (14.0 - 32.0 %) 10.6 L Llano % (Auto) (4.8 - 9.0 %) 4.4 L Eos % (Auto) (0.3 - 3.7 %) 2.4 Baso % (Auto) (0.0 - 2.0 %) 0.5 Neut # (Auto) (2.0 - 7.6 x10 3/uL) 12.30 H Lymph # (Auto) (1.0 - 3.8 x10 3/uL) 1.60 Llano # (Auto) (0.1 - 0.8 x10 3/uL) [...] range of motion, normal sensory, normal motor functionNeuro/MICA MINER BLASTING: alert, oriented X 3Skin: dry, intact, no gross abnormalitiesPsychiatry: no hallucinations, normal moodProblem List/A P: 1. Rupture of ureter Free Text DxA P NotesFree text DxA P notes:Assessment:62-year-old male with last medical history of, BPH, transferred from [place] for urology evaluation and treatment secondary to [...] neededRepeat labsFurther recommendation based on patient's clinical srwyvp6710/17/2022Vital signs within normal limitsHypokalemia 3.2, hypomagnesemia 1.50Renal [...] controlFollow-up electrolytes and labs, continue medications and iykejyk1610/22/2022Vital signs within normal limits, POC glucose is [...] explained to patient's daughterContinue with current medicationsFall xmmcitpzsc52/20/2023Stable, POC glucose 154Patient with Black to gravity, [...] supportive care at 2224 at 0830 RPT #:[id number] OF REPORTPRProgress lqhh3702-09-78M47:12:00G.ORGH21351609-4196FCAntkl able for patient cxzpNYETXDMYBZTRBT6456-34-39D17:24:26 [facility] 2022-10-25 10:44:00 [id number] jKAedl2T6brxJdCF3+dAXSi5j4tYi OQd3o+ZB/HESNB36As41Zd5GeFk2792-74-77E97:44:86229 1-[address] [place] [address] PATIENT NAME: MATHEW CASTILLO ADMIT DATE: 10/16/22ACCOUNT NO: [id number] [place] [facility] [place] AGE: 62 REPORT TYPE: PROGRESS NOTE SEX: [...] admitted through Emergency Roominitially to hospital in [place] with urinary retention of 2 days' durationand was found to have some extravasation of urine in the peritoneal cavity. Thepatient was treated with IV antibiotics and had a Black catheter inserted andabout 3 liters of urine was drained and the Black was left in place and [facility].The patient was evaluated by [...] Elizabeth Kelly Dictated: 10/25/2022 10:44:58Date Transcribed: 10/25/2022 11:24:45HA/uYlisa #: [id number] ID: [id number] Authenticated and Edited by Skip Jaffe MD On 11/02/22 2:23:50 AM at 0323 PATIENT NAME: MATHEW CASTILLO xwgu8003-32-19W18:24:00G.ANZ19169865-6235LCPuquij ble for patient kcpqQXQFEVKGKNVICK9601-90-04U56:24:12 [facility] 2022-10-24 22:59:00 [id number] fk3ssoV6TZUR8vyikS+U5eCPc6uTo 0Dxp8WB7D2nI7bzr572p1Uq+PTp0280-27-24G71:59:00 [facility])Internal Medicine Prog. NoteREPORT#:[id number] REPORT STATUS: SignedDATE:10/24/22 TIME: 2258 PATIENT: MATHEW CASTILLO UNIT #: [id number]#: [id number] [address] [birth year] AGE: 62 SEX: M ATTEND: Salinas Alba I [facility] AUTHOR: Sofia Cheng NP * ALL edits or amendments must be made on the electronic/computer document * SubjectiveChief complaint:Abdominal distention, hydronephrosisHPI:62-year-old male with last medical history of, BPH, transferred from [place] for urology evaluation and treatment secondary to [...] 10/16/22 10/16/22 Strength: 0.5 MG TAB 0923 25 HALOPERIDOL (HALDOL) 10 MG PO BID 10/16/22 10/16/22 Strength: 10 MG TAB 0925 924 Current Hospital Medications:Anti-Infective Agents Sig/Mark Start time [...] 1,000 INTL.UNITS DAILY 10/18 0900 CKD 10/24 (VITAMIN D) PO 11/17 0859 [...] HrsCAT SCAN - CTA CHEST FOR PE 10/24 [...] Ox 96 10/24 1949 B/P 111/65 10/24 1950 B/P Mean 80.3 10/24 1949 Temp 37.1 10/24 1949 Pulse 72 10/24 1950 Resp 14 10/24 1949 O2 Delivery Nasal cannula 10/24 1656 [...] range of motion, normal sensory, normal motor functionNeuro/MICA MINER BLASTING: alert, oriented X 3Skin: dry, intact, no gross abnormalitiesPsychiatry: no hallucinations, normal moodProblem List/A P: 1. Rupture of ureter Free Text DxA P NotesFree text DxA P notes:Assessment:62-year-old male with last medical history of, BPH, transferred from [place] for urology evaluation and treatment secondary to [...] neededRepeat labsFurther recommendation based on patient's clinical njirxl5910/17/2022Vital signs within normal limitsHypokalemia 3.2, hypomagnesemia 1.50Renal [...] controlFollow-up electrolytes and labs, continue medications and evgmbbi7410/22/2022Vital signs within normal limits, POC glucose is [...] explained to patient's daughterContinue with current medicationsFall dbnzmeeltg59/20/2023Stable, POC glucose 154Patient with Black to gravity, tolerating p.o. intakeNephro is following. On tamsulosin p.o.Continue pain control, glycemic control, fall precautionContinue medications and present care at 2223 at 0830 RPT #:[id number] OF REPORTPRProgress wjae7448-17-49I68:59:00G.WMZD57559085-6311VEPuusq able for patient hjpfETVZTSJQOBNBMV3007-12-60N16:24:17 [facility] 2022-10-24 19:41:00 [id number] veDR0DMo/7apuZY/DgDhgzSe88lGt Of8ROUKAUn2JtyEPwhTkP3nO67L2548-69-17C60:41:00 [facility] ([facility])Infectious Dis. Progress NoteREPORT#:[id number] REPORT STATUS: SignedDATE:10/24/22 TIME: 1940 PATIENT: MATHEW CASTILLO UNIT #: [id number]#: [id number] [place] [facility] [place]DOB: [birth year] AGE: 62 SEX: M ATTEND: [place] [...] closely for any diarrhea. at 0316 RPT #:[id number] OF REPORTPRProgress zkkb0167-21-42D09:41:00G.[id number] able for patient epdzJLUBJPKIHIUKYN9942-42-79R11:16:37 [facility] 2022-10-24 19:12:00 [id number] 7i5UHL637ZgNhUfm5+nSXnzIFjnKL ONxuk0uqiSbFCv5HDGbPv1qNlFt2934-75-54P44:12:05456 0-[address] [address] PATIENT NAME: MATHEW CASTILLO ADMIT DATE: 10/16/22ACCOUNT NO: [id number] [place] [facility] [place] AGE: 62 REPORT TYPE: PROGRESS NOTE SEX: [...] sodium is 138, potassium 3.8, chloride 107, nhrwazvvsob22, glucose 98. BUN 11, creatinine 1.0, estimated [...] medical problems was [place]ad[place] had presented with urinaryretention. The patient was found to have 3 liters of urine in the bladder. Hehad a Black catheter inserted and subsequently was transferred to [facility] for urology evaluation. He was [...] Elizabeth Kelly Dictated: 10/24/2022 19:12:07Date Transcribed: 10/24/2022 19:51:44ESTRADA/Concepcion #: [id number] ID: [id number] Authenticated and Edited by Skip Jaffe MD On 11/02/22 2:23:34 AM at 0323 PATIENT NAME: MATHEW CASTILLO reug2871-92-98M07:51:00G.[id number] ble for patient rqysAWIZRIWHNUCKGF3839-52-06T54:24:12 [facility] 2022-10-24 16:08:00 [id number] qTMK9ORMV2HdjV/sMaFTNPE/[place]/s f3STW/fbzJq7nxEtJYKHNwIS6V76044-82-02S66:08:00 [facility] ([facility])Nephrology Progress NoteREPORT#:[id number] REPORT STATUS: SignedDATE:10/24/22 TIME: 160 PATIENT: MATHEW CASTILLO UNIT #: [id number]#: [id number] [address] [birth year] AGE: 62 SEX: M ATTEND: [place] I [facility] AUTHOR: Carmen Kemp * ALL edits or amendments must be made on the electronic/computer document * Carmen Kepm 10/24/22 1608:SubjectiveChief complaint:Concern for ruptured ureterHPI:The patient [...] no edema ResultsFindings/Data:Laboratory Tests 10/24 10/23 0721 1956 Chemistry POC [...] urine in his bladder. CT abdomen from [place] showed that the patient has a very [...] urine in his bladder. CT abdomen from [place] showed that the patient has a very [...] above A/P at 1740 at 2124 RPT #:[id number] OF REPORTPRProgress hvlt4703-77-90M09:08:00G.QNWU09107176-2833VRXsltj able for patient jnwfTHVYVXDJCZWDWL8066-54-19N73:40:54 [facility] 2022-10-23 21:33:00 [id number] prS1Yg6Mx0boJXGsPLPaRAIKdqDZo 5NDEbmfb4GUoaBqyXz6joEzHVTo4769-73-72O85:33:00 [facility] Prog. NoteREPORT#:[id number] REPORT STATUS: SignedDATE:10/23/22 TIME: 2132 PATIENT: MATHEW CASTILLO UNIT #: [id number]#: [id number] [address] [birth year] AGE: 62 SEX: M ATTEND: Salinas Alba I [facility] AUTHOR: Sofia Cheng NP * ALL edits or amendments must be made on the electronic/computer document * SubjectiveChief complaint:Abdominal distention, hydronephrosisHPI:62-year-old male with last medical history of, BPH, transferred from [place] for urology evaluation and treatment secondary to [...] range of motion, normal sensory, normal motor functionNeuro/MICA MINER BLASTING: alert, oriented X 3Skin: dry, intact, no gross abnormalitiesPsychiatry: no hallucinations, normal moodProblem List/A P: 1. Rupture of ureter Free Text DxA P NotesFree text DxA P notes:Assessment:62-year-old male with last medical history of, BPH, transferred from [place] for urology evaluation and treatment secondary to [...] neededRepeat labsFurther recommendation based on patient's clinical ldguax0510/17/2022Vital signs within normal limitsHypokalemia 3.2, hypomagnesemia 1.50Renal [...] controlFollow-up electrolytes and labs, continue medications and alsdqyi8510/22/2022Vital signs within normal limits, POC glucose is [...] medicationsFall precaution at 0250 at 0842 RPT #:[id number] OF REPORTPRProgress vsya5399-91-06G95:33:00G.VJIY80098467-0414GFKppgh able for patient lcblSRYXYRAFZOGZIP2615-38-62J62:51:16 [facility] 2022-10-23 18:51:00 [id number] aJcxG9G64jQPG5nOaTGHOnc5u/gJ1 DpYogahtBsjVX9kF6bwoySdfYFZ0673-08-70C62:51:00 [facility] ([facility])Infectious Dis. Progress NoteREPORT#:[id number] REPORT STATUS: SignedDATE:10/23/22 TIME: 1850 PATIENT: MATHEW CASTILLO UNIT #: [id number]#: [id number] [address]DOB: [birth year] AGE: 62 SEX: M ATTEND: [...] closely for any diarrhea. at 0256 RPT #:[id number] OF REPORTPRProgress aydy9377-41-66K99:51:00G.LRHH78426254-2502BKFftjd able for patient joohZTFMKTHUWDTQAN0633-15-85D76:56:58 [facility] 2022-10-23 18:27:00 [id number] dwsG1ZRKhHfPbrT0UZXcE2x8pOyPs +DVFLOzJJv6hjCbKVG09+hf8N+j0327-23-42O99:27:96699 -0332 [place] [address] PATIENT NAME: MATHEW CASTILLO ADMIT DATE: 10/16/22ACCOUNT NO: [id number] ROOM NO: 6630 AGE: 62 REPORT TYPE: [...] sodium is 139, potassium 4.0, chloride 107, rhyimtlvurb65, glucose 102, BUN 12, creatinine 1.1, estimated GFR is 75.4, calcium is 7.8,magnesium is 1.72. Blood cultures x2 are negative so far at 48 hours ofincubation. PATIENT NAME: MATHEW CASTILLO ASSESSMENT AND PLAN: The patient with multiple medical problems was initiallyadmitted through the Emergency Room where he was transferred from [facility] because of urinary retention. The patient presented to [facility] with 2 days' history of not able to pass any urine and he was found tohave 3 liters urine in his bladder with some extravasation of urine into theperitoneal cavity. The patient had a Black catheter placed and bladder wasrelieved. He was transferred to [facility] forevaluation by Urology Service. 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, and at that time, [...] 10/23/2022 18:27:31Date Transcribed: 10/23/2022 18:54:06 ESTRADA/Concepcion #: [id number] ID: [id number] Authenticated and Edited by Skip Jaffe MD On 11/02/22 2:23:13 AM at 0225 PATIENT NAME: MATHEW CASTILLO nixz0250-09-79G25:54:00G.DOL56901915-0382RBWrlazu ble for patient mwgqAPXUGQIVECBTUL3710-04-32W70:25:49 [facility] 2022-10-23 13:24:00 [id number] uNgsXopSTp0osXscYxtrEmojOd8A/ 9+RnNxDuvspkYJdsaRE51s6appE6627-09-84Q87:24:00 [facility] ([facility]Neph[facility] Progress NoteREPORT#:[id number] REPORT STATUS: SignedDATE:10/23/22 TIME: 132 PATIENT: MATHEW CASTILLO UNIT #: [id number]#: [id number] [address] [birth year] AGE: 62 SEX: M ATTEND: Salinas Alba I [facility] AUTHOR: Carmen Kemp * ALL edits [...] 24 hour I O ending at 0700: 07/19 0700 07/18 1900 Intake Total 870 Output [...] 10/23 10/23 10/23 10/23 10/22 1622 1133 0849 0680 2006 Chemistry Sodium (134 - 147 mEq/L) [...] urine in his bladder. CT abdomen from [place] showed that the patient has a very [...] urine in his bladder. CT abdomen from [place] showed that the patient has a very [...] agree with above A/P at 1741 at 3863 RPT #:[id number] OF REPORTPRProgress ajxg8457-38-08N73:24:00G.PUXT12912083-1590XXLgtnp able for patient inklSQVBKWAVZQRJVY3826-90-26O73:42:17 [facility] 2022-10-22 18:32:00 [id number] cJIqym2lI4nkXJajt9IfhmquakEdf eXcwS6ZCZW+aDyp/PAbCjDGy5aJ3578-23-46I59:32:00 [facility] ([facility])Infectious Dis. 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 Remains afebrile at the present [...] IV antibiotics for now. at 0219 RPT #:[id number] OF REPORTPRProgress kmdv5143-27-39C24:32:00G.PQGS51445469-3624KDAcxhs able for patient xkrxHEYOSJWDOOQIXK5511-08-30R06:19:49 [facility] 2022-10-22 18:20:00 [id number] H0erU51mml9zbYP7wKK4u719UkdfK bEdtejPvunWI5J0XKi3EAOYSuo59406-81-36D13:20:56330 8-7[address] [place] [address] PATIENT NAME: MATHEW CASTILLO ADMIT DATE: 10/16/22ACCOUNT NO: [id number] ROOM NO: G.6630 AGE: 62 REPORT TYPE: [...] comorbidities, was initiallyadmitted through [facility] with acute urinaryretention. The patient has [...] need for urology evaluation, [facility]. The patient was continued on IVceftriaxone and had been doing fairly well until landscaping specialist yesterday when hestarted to have fever [...] MD Date Dictated: 10/22/2022 18:20:30Date Transcribed: 10/22/2022 19:52:40HA/Trina #: [id number] ID: [id number] Authenticated and Edited by Skip Jaffe MD On 11/02/22 2:22:51 AM at 0323 PATIENT NAME: MATHEW CASTILLO kwbw7225-17-46A66:52:00G.FGM27392016-7675WHDpbauz ble for patient vudaMNZIXTBMEWMJSF5473-78-63S89:24:12 [facility] 2022-10-22 18:15:00 [id number]/hYJ6AQ S1BSlnqRklnD76jj++aI7CfLLZhrJ vfOYLDyerrQFymhAQ8dgh9Pp20Z1214-76-72L33:15:00 [facility] CenterInternal Medicine Prog. NoteREPORT#:[id number] REPORT STATUS: SignedDATE:10/22/22 TIME: 1814 PATIENT: MATHEW CASTILLO UNIT #: [id number]#: [id number] [address] [birth year] AGE: 62 SEX: M ATTEND: Salinas Alba I [facility] AUTHOR: Sofia Cheng NP * ALL edits or amendments must be made on the electronic/computer document * SubjectiveChief complaint:Abdominal distention, hydronephrosisHPI:62-year-old male with last medical history of, BPH, transferred from [place] for urology evaluation and treatment secondary to [...] range of motion, normal sensory, normal motor functionNeuro/MICA MINER BLASTING: alert, oriented X 3Skin: dry, intact, no gross abnormalitiesPsychiatry: no hallucinations, normal moodProblem List/A P: 1. Rupture of ureter Free Text DxA P NotesFree text DxA P notes:Assessment:62-year-old male with last medical history of, BPH, transferred from [place] for urology evaluation and treatment secondary to [...] neededRepeat labsFurther recommendation based on patient's clinical maytng0610/17/2022Vital signs within normal limitsHypokalemia 3.2, hypomagnesemia 1.50Renal [...] controlFollow-up electrolytes and labs, continue medications and oouxqkj4110/22/2022Vital signs within normal limits, POC glucose is controlledHypocalcemia 7.8, hypomagnesemia 1.72No sonographic evidence for DVTBlood culture shows no growth after 48 hoursPatient with good urine output, renal function is improved, patient will follow-up as an outpatientStill on IV antibiotic Zosyn, tamsulosin p.o.Continue electrolyte control-replace magnesiumContinue pain control, glycemic controlFollow-up labs, continue medications and supportive care at 0314 at 0842 RPT #:[id number] OF REPORTPRProgress cudh0278-87-83K64:15:00G.QHGN01415894-3711LOHjbwp able for patient xdwtXIPBTXOWEOZCHA8827-37-56Z12:14:38 [facility] 2022-10-22 09:31:00 [id number] j/lXXd0fWI5vkaaBxgvMftLMKcmhB ok38Dx5Vn5FPuLxrWzlVUb2yg6s8313-46-06A97:31:00 [facility] ([facility])Nephrology Progress NoteREPORT#:[id number] REPORT STATUS: SignedDATE:10/22/22 TIME: 930 PATIENT: MATHEW CASTILLO UNIT #: [id number]#: [id number] ROOM/BED: 6630-1DOB: [birth year] AGE: 62 SEX: M ATTEND: Salinas Alba I [facility] AUTHOR: Carmen Kemp * ALL edits [...] urine in his bladder. CT abdomen from [place] showed that the patient has a very [...] urine in his bladder. CT abdomen from [place] showed that the patient has a very [...] patient's nurse, and . Toby Koehler 10/22/22 2211:Attestations Physician AttestationReviewed findings plan:Patient examined Renal function improved and wnl, black to gravity, -2/2 post-obstrucitve uropathy, replace electrolytes as needed, agree with aboveA/P at 1842 at 2220 RPT #:[id number] OF REPORTPRProgress jmsb5203-44-90Q76:31:00G.APZP61952997-8137XYLtvkr able for patient rhuaRXMOONAPQKGHAE2569-19-70A45:42:25 [facility] 2022-10-21 20:48:00 [id number]+6U6 RdXSw5ny/0EzHEAkrJxm/DYHjvyDQ 72aE8/zpe4Hxxi+7KQ3gPR+IW8+3084-15-03G56:48:00 [facility])Internal Medicine Prog. NoteREPORT#:[id number] REPORT STATUS: SignedDATE:10/21/22 TIME: 2047 PATIENT: MATHEW CASTILLO UNIT #: [id number]#: [id number] [address] [birth year] AGE: 62 SEX: M ATTEND: Salinas Alba I [facility] AUTHOR: Sofia Cheng NP * ALL edits or amendments must be made on the electronic/computer document * SubjectiveChief complaint:Abdominal distention, hydronephrosisHPI:62-year-old male with last medical history of, BPH, transferred from [place] for urology evaluation and treatment secondary to [...] (HUMALOG) 0 AC HS SUBQ ResultsFindings/Data:Laboratory Tests 10/21/22425:[Embedded Image Not Available]Laboratory Tests 10/21 10/21 10/21 [...] (<=500 ng/mlFEU) 5949 *H Laboratory Tests 10/21 042 Hematology WBC (4.5 - 11.0 x10 3/uL) [...] range of motion, normal sensory, normal motor functionNeuro/MICA MINER BLASTING: alert, oriented X 3Skin: dry, intact, no gross abnormalitiesPsychiatry: no hallucinations, normal moodProblem List/A P: 1. Rupture of ureter Free Text DxA P NotesFree text DxA P notes:Assessment:62-year-old male with last medical history of, BPH, transferred from [place] for urology evaluation and treatment secondary to [...] neededRepeat labsFurther recommendation based on patient's clinical oipzjh2810/17/2022Vital signs within normal limitsHypokalemia 3.2, hypomagnesemia 1.50Renal [...] and present at 0104 at 1009 RPT #:[id number] OF REPORTPRProgress rexd1144-88-44S32:48:00G.RAAV37871682-0562OPZmtue able for patient dxolRFXEQTJMSFQGGY9044-67-83B44:04:19 [facility] 2022-10-21 19:01:00 [id number] 4/ar1ky8xBpxVceJZBvY+eoqC9KJA 6vrdG2H3+jk8dwDVpWbNM7Bh1IW7735-77-06O07:01:00 [facility])Infectious Dis. Progress NoteREPORT#:[id number] REPORT STATUS: SignedDATE:10/21/22 TIME: 1900 PATIENT: MATHEW CASTILLO UNIT #: [id number]#: [id number] [address] [birth year] AGE: 62 SEX: M ATTEND: Salinas Alba I [facility] AUTHOR: Skip Jaffe MD * ALL [...] Discussed with Skylar MENDIOLA. at 0242 RPT #:[id number] OF REPORTPRProgress xfau9633-07-08E52:01:00G.CXMF64262694-5912ISKkxza able for patient equoLDQDWNSERWYCFF9694-07-67T21:42:47 [facility] 2022-10-21 11:23:00 [id number] B+cWKcR7z9FnwAanQoGc7wla5KiFc OEN5u8A5/GFC5w/xYZNLPKfFPyr3011-29-29I73:23:00 [facility] ([facility]Neph[facility] Progress NoteREPORT#:[id number] REPORT STATUS: SignedDATE:10/21/22 TIME: 1122 PATIENT: MATHEW CASTILLO UNIT #: [id number]#: [id number] [address] [birth year] AGE: 62 SEX: M ATTEND: [...] urine in his bladder. CT abdomen from [place] showed that the patient has a very [...] urine in his bladder. CT abdomen from [place] showed that the patient has a very [...] above A/P at 1640 at 2055 RPT #:[id number] OF REPORTPRProgress vtea5661-46-67F78:23:00G.TYEH91672404-4166QUSesyy able for patient imrvFXEZRLABWQIZBE4132-94-97N44:40:19 [facility] 2022-10-21 03:59:00 [id number]+N VyNdV7saQPRBZ4PJBSbnfLXRGUswG dakZhRhayep970RyH6XINLcb4J25426-36-91N45:59:[address] [place], [place] [address] PATIENT NAME: MATHEW CASTILLO ADMIT DATE: 10/16/22ACCOUNT NO: [id number] ROOM NO: 6630 AGE: 62 REPORT TYPE: [...] who was initially admitted to hospital in [place] where he presented with acute urinary retention. [...] need forurology evaluation, [facility] On admission, the patient [...] temperature of up to 37.8 degrees Celsius landscaping specialist today and after that he had been only having low-grade fever. Denies any nausea, vomiting or diarrhea. Denies any chest pain, cough, expectoration, or shortness of breath. He continues to have a Black catheter in place and admits to having suprapubic areasoreness and pain, however, states that the pain and soreness he had at the timeof presentation to the [facility] has resolved. Denies any joint pains. 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 IMPRESSION: The patient with multiple comorbidities including history of schizophrenia and benign prostatic hypertrophy with worsening urinary difficulties for last over 2 years, was admitted through emergency room where hewas transferred from [facility] because of need for urology evaluation. [...] to 37.8 degrees Celsius last night and landscaping specialist and had developed marked leukocytosis. Clinically, [...] Dictated: 10/21/2022 03:59:46Date Transcribed: 10/21/2022 04:40:04ESTRADA/Annelise #: [id number] ID: [id number] by Skip Jaffe MD On 11/02/2022 02:22:37 AM at 0222 PATIENT NAME: CASTILLOMATHEW :40:00G.PA [id number] for patient nvhqEMUZVAJSFNRIHC4758-73-31Z38:23:17 [facility] 2022-10-20 20:34:00 [id number] AJVbDpKOE1/eJ94HDU9knhPCUI6qt DMhnobe+XIdDPvU4y2nTxBl1NHg4284-12-26S06:34:00 [facility] ([facility])Nephrology Progress NoteREPORT#:[id number] REPORT STATUS: SignedDATE:10/20/22 TIME: 2033 PATIENT: MATHEW CASTILLO UNIT #: [id number]#: [id number] [place] [facility] [place]: [birth year] AGE: 62 SEX: M ATTEND: Salinas [...] Coagulation INR (0.8 - 1.2) 1.1 PTT ([place]) (25.0 - 39.5 Seconds) 26.1 PT Patient/Control [...] - 32.0 %) 9.5 L 7.3 L [place] % (Auto) (4.8 - 9.0 %) 7.2 7.5 Eos % (Auto) (0.3 - 3.7 %) 2.6 2.2 Baso % (Auto) (0.0 - 2.0 %) 0.4 0.3 Neut # (Auto) (2.0 - 7.6 x10 3/uL) 13.75 H 15.38 H Lymph # (Auto) (1.0 - 3.8 x10 3/uL) 1.67 1.40 [place] # (Auto) (0.1 - 0.8 x10 3/uL) [...] urine in his bladder. CT abdomen from [place] showed that the patient has a very [...] urine in his bladder. CT abdomen from [place] showed that the patient has a very [...] IV hydralazine Schizophrenia-Home medications resumed at 2150 RPT #:[id number] OF REPORTPRProgress otpu9243-03-79Z06:34:00G.FOFJ54354449-2245MTDiptv able for patient yogkAWWMQKZICOVODU5684-59-00H93:50:59 [facility] 2022-10-20 18:11:00 [id number] NWYC36OYzDTpjzs1a2mrRNv/7B3qc ESyMXYun+fx78LirotiUlFimBp49462-11-15O36:11:00 [facility] Prog. NoteREPORT#:[id number] REPORT STATUS: SignedDATE:10/20/22 TIME: 1810 PATIENT: MATHEW CASTILLO UNIT #: [id number]#: [id number] ROOM/BED: 6630-1DOB: [birth year] AGE: 62 SEX: M ATTEND: Salinas Alba I [facility] AUTHOR: Sofia Cheng BOLT SAWYER * ALL edits or amendments must be made on the electronic/computer document * SubjectiveChief complaint:Abdominal distention, hydronephrosisHPI:62-year-old male with last medical history of, BPH, transferred from [place] for urology evaluation and treatment secondary to [...] Coagulation INR (0.8 - 1.2) 1.1 PTT ([place]) (25.0 - 39.5 Seconds) 26.1 PT Patient/Control [...] - 32.0 %) 9.5 L 7.3 L [place] % (Auto) (4.8 - 9.0 %) 7.2 7.5 Eos % (Auto) (0.3 - 3.7 %) 2.6 2.2 Baso % (Auto) (0.0 - 2.0 %) 0.4 0.3 Neut # (Auto) (2.0 - 7.6 x10 3/uL) 13.75 H 15.38 H Lymph # (Auto) (1.0 - 3.8 x10 3/uL) 1.67 1.40 [place] # (Auto) (0.1 - 0.8 x10 3/uL) [...] range of motion, normal sensory, normal motor functionNeuro/MICA MINER BLASTING: alert, oriented X 3Skin: dry, intact, no gross abnormalitiesPsychiatry: no hallucinations, normal moodProblem List/A P: 1. Rupture of ureter Free Text DxA P NotesFree text DxA P notes:Assessment:62-year-old male with last medical history of, BPH, transferred from [place] for urology evaluation and treatment secondary to [...] neededRepeat labsFurther recommendation based on patient's clinical pjlfbu8910/17/2022Vital signs within normal limitsHypokalemia 3.2, hypomagnesemia 1.50Renal [...] supportive care at 0141 at 1009 RPT #:[id number] OF REPORTPRProgress null3844-49-75I57:11:00G.KVSM55128403-0400FSDtxoz able for patient eopoIMYFKFSAJLPRZD1399-59-16O68:42:15 [facility] 2022-10-20 17:06:00 [id number] wsxp/26SGVuE3qfKajvIckbNrn0Yb OvR0/HLhCew5EraB1lkRxIVoOGb7669-52-24L02:06:00 [facility] ([facility])Infect Disease Consult NoteREPORT#:[id number] REPORT STATUS: SignedDATE:10/20/22 TIME: 1705 PATIENT: AMTHEW CASTILLO UNIT #: [id number]#: [id number] [address] [birth year] AGE: 62 SEX: M ATTEND: [...] Allergies:No Known Allergies (10/16/22) at 0239 RPT #:[id number] OF REPORTTOBqcoudpdzswu2041-37-41C22:06:00G.PDOC2 0607607-1685FJIhafoupws for patient cqokEOQLLNMLGXOGEB0425-08-79U47:40:06 [facility] 2022-10-20 01:07:00 [id number] 1oLBDApxpHRPPb1RrGhio+AYBwgnw 1Tue9kjW9JXd9OVKmDBRUj3VXAT8690-23-43I58:07:75392 7-[address] [place] [address] PATIENT NAME: MATHEW CASTILLO ADMIT DATE: 10/16/22ACCOUNT NO: [id number] ROOM NO: 6630 AGE: 62 REPORT TYPE: eELECTROCARDIOGRAM REPORT SEX: M ADMITTING PHYSICIAN:Salinas Alba MD ATTENDING PHYSICIAN:Salinas Alba MD Order:[id number] Reason : Sepsis Test Date/Time Stamp:Adrian Oct 20 2022 01:07:09Blood Pressure : / [...] MD at 1247 PATIENT NAME: MATHEW CASTILLO .[id number] AVAvailable for patient yvoyATFZPMTCUSSAQL9797-41-71R76:47:27 [facility] 2022-10-19 22:43:00 [id number]+bH+pxod Czv6GHPB/AIi5kKVMm97gVtjaX8v/ dxxzh21o1X8eKvQtvnfhmJ4d/F76750-94-77V44:43:00 [facility] Prog. NoteREPORT#:[id number] REPORT STATUS: SignedDATE:10/19/22 TIME: 2242 PATIENT: MATHEW CASTILLO UNIT #: [id number]#: [id number] [place] [facility] [place]OB: [birth year] AGE: 62 SEX: M ATTEND: Salinas Alba I [facility] AUTHOR: Sofia Cheng NP * ALL edits or amendments must be made on the electronic/computer document * SubjectiveChief complaint:Abdominal distention, hydronephrosisHPI:62-year-old male with last medical history of, BPH, transferred from [place] for urology evaluation and treatment secondary to [...] 10/19 10/19 10/19 10/19 1917 1615 1135 0751 0347 Chemistry Sodium (134 - 147 mEq/L) [...] (1.80 - 2.40 mg/dL) 1.48 L 10/18 10/17 10/17 10/17 10/17 0540 2012 1119 0728 0713 Chemistry POC Glucose [...] - 32.0 %) 15.7 15.6 10.6 L [place] % (Auto) (4.8 - 9.0 %) 8.5 10.1 H 12.8 H Eos % (Auto) (0.3 - 3.7 %) 6.0 H 7.5 H 2.7 Baso % (Auto) (0.0 - 2.0 %) 0.7 0.7 0.4 Neut # (Auto) (2.0 - 7.6 x10 3/uL) 6.09 5.53 8.23 H Lymph # (Auto) (1.0 - 3.8 x10 3/uL) 1.48 1.39 1.22 [place] # (Auto) (0.1 - 0.8 x10 3/uL) [...] pH (5.0 - 7.0) 5.0 Ur Specific Cent[place] (1.005 - 1.030) 1.015 Urine Protein (NEGATIVE) [...] Flow FiO2 Mean Ox Delivery Rate 10/19 191 37.2 78 16 114/70 84.7 97 Room [...] Pulse Resp B/P B/P Mean Pulse Ox WhH572/-10/19 37.0-37.2 66-85 14-17 105-142/67-80 80.3-100.6 95-98 Last [...] range of motion, normal sensory, normal motor functionNeuro/MICA MINER BLASTING: alert, oriented X 3Skin: dry, intact, no gross abnormalitiesPsychiatry: no hallucinations, normal moodProblem List/A P: 1. Rupture of ureter Free Text DxA P NotesFree text DxA P notes:Assessment:62-year-old male with last medical history of, BPH, transferred from [place] for urology evaluation and treatment secondary to [...] further evaluation and treatmentUrology consultation in placeKeep Balck to bedside drainageI's and O'sMonitor renal functionNephrology consultationReplace electrolytesStart tamsulosinBicarb drip startedRepeat CT of the abdomen and pelvis if neededRepeat labsFurther recommendation based on patient's clinical hqohek5010/17/2022Vital signs within normal limitsHypokalemia 3.2, hypomagnesemia 1.50Renal [...] present care at 0229 at 1514 RPT #:[id number] OF REPORTPRProgress knij8493-63-39Z33:43:00G.DBFS08095983-0823VKVxsru able for patient ytvePMRKYRSWUXXXUZ7538-40-15I43:29:44 [facility] 2022-10-19 20:14:00 [id number]/[id number] quCIRH0Rh/l3PsZn8xDxxlf1Mg+fabi Zn4tC78O92jP/azSBEIjfPe4Pfp6689-65-93P43:14:00 [facility]Ne[facility] Progress NoteREPORT#:[id number] REPORT STATUS: SignedDATE:10/19/22 TIME: 2013 PATIENT: MATHEW CASTILLO UNIT #: [id number]#: [id number] [address] 58 AGE: 62 SEX: M ATTEND: [...] 10/19 10/19 10/19 10/19 10/18 1615 1135 [id number] [id number] 2021 Chemistry Sodium (134 - 147 mEq/L) [...] - 2.40 mg/dL) 1.65 L Laboratory Tests 10/197 Hematology WBC (4.5 - 11.0 x10 3/uL) [...] % (Auto) (14.0 - 32.0 %) 15.7 [place] % (Auto) (4.8 - 9.0 %) 8.5 Eos % (Auto) (0.3 - 3.7 %) 6.0 H Baso % (Auto) (0.0 - 2.0 %) 0.7 Neut # (Auto) (2.0 - 7.6 x10 3/uL) 6.09 Lymph # (Auto) (1.0 - 3.8 x10 3/uL) 1.48 [place] # (Auto) (0.1 - 0.8 x10 3/uL) [...] pH (5.0 - 7.0) 5.0 Ur Specific Centuria (1.005 - 1.030) 1.015 Urine Protein (NEGATIVE) [...] urine in his bladder. CT abdomen from [place] showed that the patient has a very [...] urine in his bladder. CT abdomen from [place] showed that the patient has a very [...] IV hydralazine Schizophrenia-Home medications resumed at 2148 [facility] #:[id number] OF REPORTPRProgress [id number]:14:00G.[id number] able for patient rycyCXYJUREVUWNSSI3587-32-34X89:49:08 [facility] 2022-10-18 20:26:00 [id number] J08cTR8wIlHjCXTwgRvUQxOGHsea1 sblLOfUxsLrGnxvTJJUWYx/ITw+3807-88-27K70:26:00 [facility] [facility] CenterInternal Medicine Prog. NoteREPORT#:[id number] REPORT STATUS: SignedDATE:10/18/22 TIME: 2025 PATIENT: MATHEW CASTILLO UNIT #: [id number]#: [id number] ROOM/BED: 6630-1DOB: [birth year] AGE: 62 SEX: M ATTEND: Salinas Alba I [facility] AUTHOR: Sofia Cheng BOLT SAWYER * ALL edits or amendments must be made on the electronic/computer document * SubjectiveChief complaint:Abdominal distention, hydronephrosisHPI:62-year-old male with last medical history of, BPH, transferred from [place] for urology evaluation and treatment secondary to [...] Temp 37.1 10/18 1854 Pulse 75 10/18 1855 Resp 16 10/18 1854 24 hour I [...] % (Auto) (14.0 - 32.0 %) 15.6 Llano % (Auto) (4.8 - 9.0 %) 10.1 H Eos % (Auto) (0.3 - 3.7 %) 7.5 H Baso % (Auto) (0.0 - 2.0 %) 0.7 Neut # (Auto) (2.0 - 7.6 x10 3/uL) 5.53 Lymph # (Auto) (1.0 - 3.8 x10 3/uL) 1.39 Llano # (Auto) (0.1 - 0.8 x10 3/uL) [...] range of motion, normal sensory, normal motor functionNeuro/MICA MINER BLASTING: alert, oriented X 3Skin: dry, intact, no gross abnormalitiesPsychiatry: no hallucinations, normal moodProblem List/A P: 1. Rupture of ureter Free Text DxA P NotesFree text DxA P notes:Assessment:62-year-old male with last medical history of, BPH, transferred from [place] for urology evaluation and treatment secondary to [...] neededRepeat labsFurther recommendation based on patient's clinical mfbcmv6310/17/2022Vital signs within normal limitsHypokalemia 3.2, hypomagnesemia 1.50Renal [...] supportive care at 2012 at 1301 RPT #:[id number] OF REPORTPRProgress vcjq1966-49-71Q63:26:00G.HXMA85614213-5490WPEynxq able for patient piseFVVMSPVGRHFVHL0596-08-84V68:12:32 [facility] 2022-10-18 17:48:00 [id number] fE+ZeHZamjzBKMFD1IuaE3wFYH47a A4ysT3opDsaa2Z/aJULce3hheYT0253-61-26S01:48:00 [facility] CenterNeph[facility] Progress NoteREPORT#:[id number] REPORT STATUS: SignedDATE:10/18/22 TIME: 1747 PATIENT: MATHEW CASTILLO UNIT #: [id number]#: [id number] ROOM/BED: 6630-1DOB: [birth year] AGE: 62 SEX: M ATTEND: Salinas Alba I [facility] AUTHOR: Carmen Kemp * ALL edits or amendments must be made on the electronic/computer document * See AddendumCarmen Kemp 10/18/22 174:SubjectiveChief complaint:Concern for ruptured ureterHPI:The patient seen and [...] % (Auto) (14.0 - 32.0 %) 15.6 Llano % (Auto) (4.8 - 9.0 %) 10.1 H Eos % (Auto) (0.3 - 3.7 %) 7.5 H Baso % (Auto) (0.0 - 2.0 %) 0.7 Neut # (Auto) (2.0 - 7.6 x10 3/uL) 5.53 Lymph # (Auto) (1.0 - 3.8 x10 3/uL) 1.39 Llano # (Auto) (0.1 - 0.8 x10 3/uL) [...] urine in his bladder. CT abdomen from [place] showed that the patient has a very [...] urine in his bladder. CT abdomen from [place] showed that the patient has a very [...] K and magnesium supplementation. at 1937 RPT #:[id number] OF REPORTPRProgress wpjj8982-13-04R32:48:00G.KAMU49288103-0990VIYtkfi able for patient ibilWXVGVWMGDTETYH2555-85-68K30:50:34 [facility] 2022-10-17 22:43:00 [id number] CNs0cw5lplFYQEJg+uZRB8FgYhj7Q 8jwwpFL206yKnP2d02vbjk2nBgJ1152-96-53F18:43:00 [facility] CenterInternal Medicine Prog. NoteREPORT#:[id number] REPORT STATUS: SignedDATE:10/17/22 TIME: 2242 PATIENT: MATHEW CASTILLO UNIT #: [id number]#: [id number] [address]: [birth year] AGE: 62 SEX: M ATTEND: Salinas Alba I [facility] AUTHOR: Sofia Cheng BOLT SAWYER * ALL edits or amendments must be made on the electronic/computer document * SubjectiveChief complaint:Abdominal distention, hydronephrosisHPI:62-year-old male with last medical history of, BPH, transferred from [place] for urology evaluation and treatment secondary to [...] Pulse Resp B/P B/P Mean Pulse Ox OmS301/12-10/17 37.2-37.5 83-100 16-18 119-133/70-79 86.3-96.8 93-95 Last [...] Tests 10/17 10/17 10/17 10/17 1119 0728 07 0713 Chemistry Sodium (134 - 147 mEq/L) [...] (Auto) (14.0 - 32.0 %) 10.6 L Llano % (Auto) (4.8 - 9.0 %) 12.8 H Eos % (Auto) (0.3 - 3.7 %) 2.7 Baso % (Auto) (0.0 - 2.0 %) 0.4 Neut # (Auto) (2.0 - 7.6 x10 3/uL) 8.23 H Lymph # (Auto) (1.0 - 3.8 x10 3/uL) 1.22 Llano # (Auto) (0.1 - 0.8 x10 3/uL) [...] range of motion, normal sensory, normal motor functionNeuro/MICA MINER BLASTING: alert, oriented X 3Skin: dry, intact, no gross abnormalitiesPsychiatry: no hallucinations, normal moodProblem List/A P: 1. Rupture of ureter Free Text DxA P NotesFree text DxA P notes:Assessment:62-year-old male with last medical history of, BPH, transferred from [place] for urology evaluation and treatment secondary to [...] neededRepeat labsFurther recommendation based on patient's clinical pygqkr1910/17/2022Vital signs within normal limitsHypokalemia 3.2, hypomagnesemia 1.50Renal function is improved, discontinue bicarb drip, continue electrolyte control-replace as needed per nephroUrology is followingContinue tamsulosinBP control-on hydralazine as needed, pain controlContinue telemetry monitoring, intake and output, fall precautionFollow-up labs, continue medications and supportive care at 0210 at 1300 RPT #:[id number] OF REPORTPRProgress flby6793-42-02E75:43:00G.KMMG40249144-7632FQKbdzb able for patient lmuaZUHIFCNJKBCQTQ9452-98-83R51:10:49 [facility] 2022-10-17 17:41:00 [id number] R5MaDGh6FSaEMh45N2r118ciyviRo Tf6/7+1qQd9paWdYdowokoLJR7w4821-01-75F54:41:00 [facility] ([facility])Urology Progress NoteREPORT#:[id number] REPORT STATUS: SignedDATE:10/17/22 TIME: 1740 PATIENT: MATHEW CASTILLO UNIT #: [id number]#: [id number] [address]: [birth year] AGE: 62 SEX: M ATTEND: Salinas Alba I [facility] AUTHOR: Dave Jones MD * ALL [...] (Auto) (14.0 - 32.0 %) 10.6 L Llano % (Auto) (4.8 - 9.0 %) 12.8 H Eos % (Auto) (0.3 - 3.7 %) 2.7 Baso % (Auto) (0.0 - 2.0 %) 0.4 Neut # (Auto) (2.0 - 7.6 x10 3/uL) 8.23 H Lymph # (Auto) (1.0 - 3.8 x10 3/uL) 1.22 Llano # (Auto) (0.1 - 0.8 x10 3/uL) [...] cystoscopy. Home with black at 1742 RPT #:[id number] OF REPORTPRProgress kpaj7109-47-12C94:41:00G.RPRF33527189-5245YMUdcrg able for patient miwmTOUHYDWXHFCNGW4989-05-97N53:42:28 [facility] 2022-10-17 13:46:00 [id number] Wl5rQISx3kVthyhnYzHcZuXSuypGa 6xJukbQksmkt6OGGtaQgRol3zKN7786-17-73Z13:46:00 [facility] CenterNephrology Progress NoteREPORT#:[id number] REPORT STATUS: SignedDATE:10/17/22 TIME: 1346 PATIENT: MATHEW CASTILLO UNIT #: [id number]#: [id number] [address]: [birth year] AGE: 62 SEX: M ATTEND: Salinas Alba I [facility] AUTHOR: Carmen Kemp * ALL edits [...] (Auto) (14.0 - 32.0 %) 10.6 L Llano % (Auto) (4.8 - 9.0 %) 12.8 H Eos % (Auto) (0.3 - 3.7 %) 2.7 Baso % (Auto) (0.0 - 2.0 %) 0.4 Neut # (Auto) (2.0 - 7.6 x10 3/uL) 8.23 H Lymph # (Auto) (1.0 - 3.8 x10 3/uL) 1.22 Llano # (Auto) (0.1 - 0.8 x10 3/uL) [...] urine in his bladder. CT abdomen from [place] showed that the patient has a very [...] urine in his bladder. CT abdomen from [place] showed that the patient has a very [...] above A/P at 1759 at 2234 RPT #:[id number] OF REPORTPRProgress eaft1881-55-04B21:46:00G.TBNQ97581675-8834QVBpbeq able for patient ueacVYXMJZEVITFFPM7510-47-71Y96:00:00 [facility] 2022-10-16 15:13:00 [id number] aZayaJZmqBElp3N88iEn9ZAW9sf2A mq9PHManHSD1nUrOW1A5tbo8Au38807-49-45H68:13:25690 2-[address] [place] [address] PATIENT NAME: MATHEW CASTILLO ADMIT DATE: 10/16/22ACCOUNT NO: [id number] ROOM NO: G.6630 AGE: 62 REPORT TYPE: CONSULTATION REPORT SEX: M ADMITTING PHYSICIAN:Salinas Alba MD ATTENDING PHYSICIAN:Salinas Alba MD CONSULTATION DATE:10/16/2022 REASON FOR CONSULTATION: Hydronephrosis, urinary retention. HISTORY OF PRESENT ILLNESS: This is a 62-year-old male with a history ofschizophrenia who was sent in from [place]. He had reportedly almost 3liters of urine [...] pressure 134/86, pulse 94, respiratory rate 18, rnivnwkqyzz15.1, 93% on room air.GENERAL: Alert. No acute distress, nontoxic.HEENT: Normocephalic, atraumatic. Nontoxic.NECK: Supple.HEART: Regular rate and rhythm.LUNGS: Respirations unlabored.ABDOMEN: Soft, nontender, nondistended. No CVA tenderness.EXTREMITIES: Moving all extremities well. LABORATORY DATA: White blood cell count 11, hemoglobin 10.9, platelets 207.Creatinine was 2.1 on admission, now down to 1.4. ASSESSMENT AND PLAN: We reviewed the CT scan of the abdomen and pelvis from [facility]. The patient has a very [...] Dictated: 10/16/2022 15:13:22Date Transcribed: 10/16/2022 16:06:29TESSIE/Yulisa #: [id number] ID: [id number] and Edited by Dave Jones MD On 11/12/22 1:37:06 PM at 0138 PATIENT NAME: MATHEW CASTILLO :06:00G.PA [id number] for patient hxdmLJQFHWFQZKTBNK9806-13-28Q49:40:23 [facility] 2022-10-16 12:39:00 [id number] VXnVQ/IsLtk6CKzc0wuZJkAKbk+PL LN2RabjGDekSgEXKq8f9zO9PmOI1479-23-75R42:39:00 [facility] ([facility])Nephrology Consultation NoteREPORT#:[id number] REPORT STATUS: SignedDATE:10/16/22 TIME: 1239 PATIENT: MATHEW CASTILLO UNIT #: [id number]#: [id number] [address]: [birth year] AGE: 62 SEX: M ATTEND: Salinas Alba I [facility] AUTHOR: Carmen Kemp * ALL edits [...] Friday who took him to ER in [place]. He had CT abdomen which revealed b/l hydronephrosis and concern for possible ureteral rupture. He was transferred to [facility] [place] for Urology evaluation. Initial VS at the [...] (Auto) (14.0 - 32.0 %) 3.8 L Llano % (Auto) (4.8 - 9.0 %) 13.6 H Eos % (Auto) (0.3 - 3.7 %) 0.4 Baso % (Auto) (0.0 - 2.0 %) 0.2 Neut # (Auto) (2.0 - 7.6 x10 3/uL) 8.96 H Lymph # (Auto) (1.0 - 3.8 x10 3/uL) 0.42 L Llano # (Auto) (0.1 - 0.8 x10 3/uL) [...] urine in his bladder. CT abdomen from [place] showed that the patient has a very [...] urine in his bladder. CT abdomen from [place] showed that the patient has a very [...] patient's nurse, and . Toby Koehler 10/16/22 8710:Attestations Physician AttestationReviewed findings plan:Patient examined 62 years old male with PMH significant for schizophrenia, HTN, BPH, current everyday smoker. The patient states that on Friday last week, he noted abdominal distention, associated w/ pain and was unable to urinate. He wasseen by his daughter Friday who took him to ER in [place]. He had CT abdomen which revealed b/l hydronephrosis and concern for possible ureteral rupture. He was transferred to [facility] for Urology evaluation. Initial VSat the [...] above A/P at 1902 at 2211 RPT #:[id number] OF REPORTFWSpbaondudzfx1639-17-55K52:39:00G.PDOC2 [id number] for patient osveMXLGXXQNQMYEKH3345-54-47V45:02:18 [facility] 2022-10-16 11:15:00 [id number]+uyISa nluAb/FQOowCkgcAtzY8tO6UReBoh rDh0kAYJyqzMcZJ0sGI82TQ0esN9886-82-80Z56:15:00 [facility] ([facility])History Physical - AdultREPORT#:[id number] REPORT STATUS: SignedDATE:10/16/22 TIME: 1115 PATIENT: MATHEW CASTILLO SINCERE UNIT #: [id number]#: [id number] ROOM/BED: 6630-1DOB: [birth year] AGE: 62 SEX: M ATTEND: Salinas Alba I [facility] AUTHOR: Sofia Cheng NP * ALL edits or amendments must be made on the electronic/computer document * History of Present Illness HPIChief complaint:Abdominal distention, hydronephrosisHPI:62-year-old male with last medical history of, BPH, transferred from [place] for urology evaluation and treatment secondary to [...] range of motion, normal sensory, normal motor functionNeuro/MICA MINER BLASTING: alert, oriented X 3Skin: dry, intact, no [...] (Auto) (14.0 - 32.0 %) 3.8 L Llano % (Auto) (4.8 - 9.0 %) 13.6 H Eos % (Auto) (0.3 - 3.7 %) 0.4 Baso % (Auto) (0.0 - 2.0 %) 0.2 Neut # (Auto) (2.0 - 7.6 x10 3/uL) 8.96 H Lymph # (Auto) (1.0 - 3.8 x10 3/uL) 0.42 L Llano # (Auto) (0.1 - 0.8 x10 3/uL) [...] last medical history of, BPH, transferred from [place] for urology evaluation and treatment secondary to [...] on patient's clinical course at 0232 at 1202 RPT #:[id number] OF REPORTHPHistory and physical mbszhgvejcp7999-96-60J38:15:00G.IDXI60739104-8763 AVAvailable for patient kplhQQRVIHPGEMMKUX7774-81-83S35:32:18 [facility] 2022-10-16 03:54:00 [id number]+AgTxa y2r/osnf9XRtY9ZPQAHG1yci0suvv t9orjzCq8O8ukBiWr+oGaXtMw3C8924-17-90N96:54:00 [facility] ([facility])EMERGENCY PROVIDER REPORTREPORT#:[id number] REPORT STATUS: SignedDATE:10/16/22 TIME: 035 PATIENT: MATHEW CASTILLO UNIT #: [id number]#: [id number] [address] 62 SEX: M PCP PHYS: No [...] 100 10/16 0308 O2 Delivery Room air 10/168 Temp 37.1 10/16 0308 Pulse 92 10/16 0308 Resp 18 10/168 Last Documented: Result Date Time Pulse Ox 96 10/16 0330 B/P 146/80 07/12 0330 B/P Mean 107 10/16 329 Pulse 90 [...] Interpretation Diagnostics Lab Results InterpretationResultsLaboratory Tests 10/16/22 0443:[Embedded Image Not Available]Laboratory Tests: 10/16 442 Chemistry [...] (Auto) (14.0 - 32.0 %) 3.8 L Ll[place] % (Auto) (4.8 - 9.0 %) 13.6 H Eos % (Auto) (0.3 - 3.7 %) 0.4 Baso % (Auto) (0.0 - 2.0 %) 0.2 Neut # (Auto) (2.0 - 7.6 x10 3/uL) 8.96 H Lymph # (Auto) (1.0 - 3.8 x10 3/uL) 0.42 L Llano # (Auto) (0.1 - 0.8 x10 3/uL) [...] 10/16 Sodium Chloride 10 ML IV 10/16 9621 0471 ConsultationConsultation Referral/Consult Name Dave Jones MD Postie Called Urology Postie Discussed with oracle security consultant Requested Call Time 0345 Requested Call [...] Hosp Physician Name Salinas Alba MD [facility] Physician Hospitalist Request Time 0508 [...] chart for administrative purposes only. at 1907RPT #:[id number] OF REPORTEDEmernorthwest health physicians' [facility] department setams5283-94-75C12:54:00G.XYDG75799121-7847KBPdi ilable for patient pjbsAWJHGDMSJSXYBM0689-30-19L01:07:49 [facility]
--- NOTE | 2023-07-02 16:37 | ER ---
Nurse's Notes [facility] Name: Mathew Porter Age: 62 yrs Sex: Male : 1960 Arrival Date: 07/02/2023 Time: 14:52 Bed 10 Private MD: Lakhwinder Guillermo Diagnosis: Encounter for replacement of johns catheter Presentation: 07/01 15:11 Chief complaint: Sent by Dr. Guillermo for catheter replacement. Coronavirus screen: At this hb time, the client does not indicate any symptoms associated with coronavirus-19. Ebola Screen: No symptoms or risks identified at this time. Initial Sepsis Screen: Does the patient meet any 2 criteria? No. Patient's initial sepsis screen is negative. Does the patient have a suspected source of infection? No. Patient's initial sepsis screen is negative. Risk Assessment: Do you want to hurt yourself or someone else? Patient reports no desire to harm self or others. Onset of symptoms was July 02, 2023. 15:11 Method Of Arrival: Ambulatory hb 15:11 Acuity: JAMILA 4 hb Triage Assessment: 15:12 General: Appears in no apparent distress. Behavior is calm, cooperative. Pain: Denies hb pain. Neuro: Level of Consciousness is awake, alert, obeys commands, Oriented to person, place, time, situation. Cardiovascular: Patient's skin is warm and dry. Respiratory: Respiratory effort is even, unlabored, Respiratory pattern is regular, symmetrical. Historical: - Allergies: 15:12 NKA; hb - Home Meds: 15:12 None [Active]; hb - PMHx: 15:12 Schizophrenia; hb - PSHx: 15:12 Urolift (December); hb - Immunization history:: Adult Immunizations up to date. - Social history:: Smoking status: Patient reports the use of cigarette tobacco products. Screenin:20 [facility] ED Fall Risk Assessment (Adult) History of falling in the last 3 months, me1 including since admission No falls in past 3 months (0 pts). Abuse screen: Denies threats or abuse. Nutritional screening: No deficits noted. Tuberculosis screening: No symptoms or risk factors identified. Assessment: 15:20 General: Appears comfortable, well developed, well nourished, Behavior is calm, me1 cooperative, appropriate for age, Reports Sent by Dr Guillermo for johns catheter replacement. Pain: Denies pain. Neuro: Level of Consciousness is awake, alert, obeys commands, Oriented to person, place, time, situation, Appropriate for age. Cardiovascular: Patient's skin is warm and dry. Respiratory: Respiratory effort is even, unlabored, Respiratory pattern is regular, symmetrical. : Johns in place to gravity drainage. 15:20 GI: No deficits noted. EENT: No deficits noted. Derm: No deficits noted. me1 Musculoskeletal: No deficits noted. Vital Signs: 15:11 BP 124 / 88; Pulse 89; Resp 16; Temp 97.7(TE); Pulse Ox 100% on R/A; Weight 70.76 kg; hb Height 5 ft. 10 in. ; Pain 0/10; 17:34 BP 126 / 74; Pulse 61; Resp 14; Temp 97.4(O); Pulse Ox 100% on R/A; jl7 15:11 Body Mass Index 22.38 (70.76 kg, 177.8 cm) hb 15:11 Pain Scale: Adult hb ED Course: 14:56 Patient arrived in ED. mr 14:56 Lakhwinder Guillermo MD is Private Physician. mr 14:56 Brit Zapata FNP-C is [facility]. kb 14:56 Octavio Perez MD is Attending Physician. kb 15:12 Triage completed. hb 15:13 Arm band placed on. hb 15:20 Patient has correct armband on for positive identification. Bed in low position. Call me1 light in reach. Side rails up X 1. Provided Education on: POC. Verbalized understanding. . 15:20 Client placed on continuous cardiac and pulse oximetry monitoring. NIBP monitoring me1 applied. Pulse ox on. NIBP on. 15:20 No provider procedures requiring assistance completed. Patient did not have IV access me1 during this emergency room visit. 16:00 Johns cath removed intact, balloon deflated. me1 16:36 Lakhwinder Guillermo MD is Referral Physician. kb 16:36 Ricky Navarrete MD is Referral Physician. kb 16:39 Radha Langley, DEENA is Primary Nurse. me1 17:33 Johns cath inserted, using sterile technique, 16 Fr., by me, balloon inflated, to iw gravity drainage, returned hari urine. Patient tolerated well. Administered Medications: No medications were administered Medication: 15:20 VIS not applicable for this client. me1 Outcome: 16:37 Discharge ordered by MD. mccurdy 17:41 Discharged to home ambulatory, me1 17:41 Condition: stable 17:41 Discharge instructions given to patient, Instructed on discharge instructions, follow up and referral plans. johns care Demonstrated understanding of instructions, follow-up care, johns care 17:42 Patient left the ED. me1 Signatures: Brit Zapata, BANQUET SERVER ON CALL-C BANQUET SERVER ON CALL-Ckb Rylee Moe, Reg Reg mr Lolis Davis, DEENA RN Nena Huggins, DEENA RN Nadeem Tyson RN RN jl7 Radha Langley RN RN me1 Corrections: (The following items were deleted from the chart) 07/02 10:02 07/01 17:34 BP 126 / 74; Pulse 16bpm; Resp 14bpm; Pulse Ox 100% RA; Temp 97.4F Oral; me1jl7
--- NOTE | 2023-07-02 16:37 | EDPHYS ---
Physician Documentation [facility] Name: Mathew Porter Age: 62 yrs Sex: Male : 1960 Arrival Date: 07/02/2023 Time: 14:52 Bed 10 Private MD: Lakhwinder Guillermo ED Physician Octavio Perez HPI: 07/01 15:01 This 62 yrs old Male presents to ER via Unassigned with complaints of Needs Urinary kb Catheter Replacement. 15:01 Pt is a 62 year old male who presents to have johns catheter replaced. States he has kb had this one in for 3 months and was just at his PCP's office for a checkup and was told it needed to be changed out once a month. Denies any complaints. Historical: - Allergies: 15:12 NKA; hb - Home Meds: 15:12 None [Active]; hb - PMHx: 15:12 Schizophrenia; hb - PSHx: 15:12 Urolift (December); hb - Immunization history:: Adult Immunizations up to date. - Social history:: Smoking status: Patient reports the use of cigarette tobacco products. ROS: 15:01 Constitutional: As per HPI kb Exam: 15:01 Constitutional: This is a well developed, well nourished patient who is awake, alert, kb and in no acute distress. Head/Face: Normocephalic, atraumatic. ENT: Moist Mucous membranes Cardiovascular: Regular rate Respiratory: Respirations even and unlabored. No increased work of breathing. Talking in full sentences Skin: Warm, dry with normal turgor. Normal color. MS/ Extremity: Pulses equal, no cyanosis. Neurovascular intact. Full, normal range of motion. Neuro: Awake and alert, GCS 15, oriented to person, place, time, and situation. Moves all extremities. Normal gait. Vital Signs: 15:11 BP 124 / 88; Pulse 89; Resp 16; Temp 97.7(TE); Pulse Ox 100% on R/A; Weight 70.76 kg; hb Height 5 ft. 10 in. ; Pain 0/10; 17:34 BP 126 / 74; Pulse 61; Resp 14; Temp 97.4(O); Pulse Ox 100% on R/A; jl7 15:11 Body Mass Index 22.38 (70.76 kg, 177.8 cm) hb 15:11 Pain Scale: Adult hb MDM: 14:56 Patient medically screened. kb 16:34 Differential Diagnosis encounter for johns replacement/malfunction. Data reviewed: kb vital signs, nurses notes. Counseling: I had a detailed discussion with the patient and/or guardian regarding the historical points, exam findings, and any diagnostic results supporting the discharge/admit diagnosis, the need for outpatient follow up, a urologist, to return to the emergency department if symptoms worsen or persist or if there are any questions or concerns that arise at home. ED course: Pt has appt scheduled with Dr Navarrete in August, which was the earliest he could get an appt. 07/01 15:02 Order name: Johns: Remove old and replace; Complete Time: 17:28 kb Administered Medications: No medications were administered Disposition: 17:48 Co-signature as Attending Physician, Octavio Perez MD I reviewed the patient's care rn provided by the Advanced Practice Provider and agree with the diagnosis and treatment plan. Disposition Summary: 07/02/23 16:37 Discharge Ordered Notes: Location: Home kb Condition: Stable kb Diagnosis - Encounter for replacement of johns catheter kb Followup: kb - With: Emergency Department - When: As needed - Reason: Worsening of condition Followup: kb - With: Lakhwinder Guillermo MD - When: 2 - 3 days - Reason: Recheck today's complaints Followup: kb - With: Ricky Navarrete MD - When: 2 - 3 days - Reason: Recheck today's complaints Discharge Instructions: - Discharge Summary Sheet kb - Indwelling Urinary Catheter Care, Adult, Ijqx-sz-Raiz kb Forms: - Medication Reconciliation Form kb - Thank You Letter kb - Antibiotic Education kb - Prescription Opioid Use kb - Patient Portal Instructions kb - Leadership Thank You Letter kb Signatures: Brit Zapata, VANDANA-C STOP ATTACHER-Octavio Fischer MD MD rn Baxter, Heather, RN RN hb
[2023-07-02 18:28] VITALS: BP 126/74; TEMP 97.4; O2SAT 100
== END ==
LOC: ER 14:52
PROC: 0T2BX0Z Change Drainage Device in Bladder, External Approach (ICD-10-PCS; principal; 2023-07-02)
DX: Z46.6 Encounter for fitting and adjustment of urinary device (principal)

== ENCOUNTER 2023-08-02 09:21 | Emergency (ER) | payer OTHER ==
--- OUTSIDE RECORDS SUMMARY | 2023-08-02 09:27 | XMS REPORT | Continuity of Care Document ---
Author Name Unknown Address [address] [facility] [place]. [address] [place] [id number] [facility] thconnect Address [address] [facility] [place] 1 [address] [place] [address] Care Team Providers Care Big Data Engineer Name Role Phone Salinas Alba I Attending [...] s DA Active U 10-16 00:00: 00 [facility] Encounters Start Date/Time End Date/Time Encounter Type Admission Type Attending Clinicians Care Facility Care Department Encounter ID Source 2023-01-21 06:38:00 2023-01-22 20:00:00 Inpatient EM Salinas Alba [facility] MEDI.01 [id number] 65 [facility] 2023-01-06 15:12:00 2023-01-11 21:08:00 Inpatient EM Salinas Alba [facility] MEDI.01 [id number] 41 [facility] 2022-10-16 05:03:00 2022-10-26 19:41:00 Inpatient EM Salinas Alba [facility] MEDI.01 [id number] 28 [facility] Results Test Description Test Time Test Comments Results Resul t Comments Source - CT ABD PELVIS W/CONT 2023-01-05 8 13:00:[address] [facility] : 1960 Sex: M Name: MATHEW CASTILLO [facility] : 1960 Age/S: 62 / M [address] [place] [address] Blvd Unit #: [id number] Loc: [place] [address] Phys: Sofia Cheng CLINICAL TECH Acct: [id number] Dis Date: Status: ADM IN PHONE #: [phone] Exam Date: 01/22/2023 1231 FAX #: [phone] Reason: ABD PAIN EXAMS: CPT CODE: [id number] CT ABD PELVIS W/CONT 24328 EXAM: CT abdomen and pelvis with contrast [...] 1 Signed Report (CONTINUED) Name: MATHEW CASTILLO [facility] : 1960 Age/S: 62 / M [address] [place] [address] Blvd Unit #: [id number] Loc: [place] [address] Phys: Sofia Cheng CLINICAL TECH Acct: [id number] Dis Date: Status: ADM IN PHONE #: [phone] Exam Date: 01/22/2023 1231 FAX #: [phone] Reason: ABD PAIN EXAMS: CPT CODE: [id number] CT ABD PELVIS W/CONT 33457 (Continued) abdominal aortic aneurysm. Pelvic organs/bladder: Moderate [...] M.D. CC: Lakhwinder Guillermo MD; Sofia Cheng CLINICAL TECH; Salinas Dukes MD Technologist:Rick Moran Jr, RT(R)(CT) CTDI: DLP: Trnscb Date/Time: 01/22/2023 (1300) t.SDR.BC0 Orig Print D/T: S: 01/22/2023 (1749) PAGE 2 Signed Report [id number] 07:46:00* Test Item Value Reference Range Interpretation Comme nts PHOSPHOROUS (test code = PHOS) 2.4 MG/DL 2.5-4.9 L [id number] 07:46:00* Test Item Value Reference Range Interpretation Comme nts MAGNESIUM (test code = MAG) 1.69 mg/dL 1.6-2.6 N NOTE: NEW NORMAL RANGE CBC W/AUTO [id number] 07:05:00* Test Item Value Reference Range Interpretation [...] 0.00 x10 3/uL 0.0-0.1 N BASIC METABOLIC [id number] 06:08:00* Test Item Value Reference Range Interpretation [...] CA) 8.2 mg/dL 8.0-10.5 N CBC W/AUTO [id number] 05:57:00* Test Item Value Reference Range Interpretation [...] c ode = MDIFF) NO CBC W/AUTO [id number] 08:15:00* Test Item Value Reference Range Interpretation [...] 0.00 x10 3/uL 0.0-0.1 N BASIC METABOLIC [id number] 07:28:00* Test Item Value Reference Range Interpretation [...] CA) 8.6 mg/dL 8.0-10.5 N BASIC METABOLIC [id number] 07:46:00* Test Item Value Reference Range Interpretation [...] CA) 8.7 mg/dL 8.0-10.5 N CBC W/AUTO [id number] 07:34:00* Test Item Value Reference Range Interpretation [...] 0.00 x10 3/uL 0.0-0.1 N CBC W/AUTO [id number] 08:43:00* Test Item Value Reference Range Interpretation [...] c ode = MDIFF) NO BASIC METABOLIC [id number] 07:14:00* Test Item Value Reference Range Interpretation [...] CA) 7.8 mg/dL 8.0-10.5 L CBC W/AUTO [id number] 08:58:00* Test Item Value Reference Range Interpretation [...] c ode = MDIFF) NO BASIC METABOLIC [id number] 08:27:00* Test Item Value Reference Range Interpretation [...] HGBA1C%) 5.1 %A1C 4.8-6.0 N CBC W/AUTO [id number] 08:05:00* Test Item Value Reference Range Interpretation [...] (test code = MDIFF) NO BASIC METABOLIC [id number] 07:46:00* Test Item Value Reference Range Interpretation [...] = LDL) 104.0 mg/dL 0-100 H <100 OBFFOWM26 0-129 NEAR OPTIMAL/ABOVE [id number] KHFHEBGLWI237-542 HIGH>KB=975 VERY HIGH*Guidelines provided by the National Cholesterol EducationProgram Adult Treatment Panel III [id number] 07:46:00* Test Item Value Reference Range Interpretation Comme nts PHOSPHOROUS (test code = PHOS) 3.4 MG/DL 2.5-4.9 N [id number] 07:46:00* Test Item Value Reference Range Interpretation Comme nts MAGNESIUM (test code = MAG) 1.69 mg/dL 1.6-2.6 N NOTE: NEW NORMAL RANGE TSH REFLEX TO [id number] 07:46:00* Test Item Value Reference Range Interpretation Comme nts TSH REFLEX TO FT4 (test code = TSHREFLEX) 2.37 IU/mL 0.42-5.47 N LACTIC [id number] 05:48:00* Test Item Value Reference Range Interpretation Comme nts LACTIC ACID (test code = LACT) 1.1 mmol/L 0.4-1.9 N LACTIC ACID [id number] 02:38:00* Test Item Value Reference Range Interpretation Comme nts LACTIC ACID REPEAT (test cod e = LACTR) 0.9 mmol/l 0.4-1.9 N CALLED SEVERINO @01:18 TO REMIND WE NEEDED REPEATLACTIC [id number] 22:36:00* Test Item Value Reference Range Interpretation Comme nts LACTIC ACID (test code = LACT) 2.9 mmol/L 0.4-1.9 H UA RFLX MICR CULT IF [id number] 22:35:00* Test Item Value Reference Range Interpretation [...] Less than 14 days- CT ABD PELVIS [id number] 22:24:00 [facility] HUANGName: MATHEW CASTILLO : 1960 Sex: M Name: MATHEW CASTILLO [facility] : 1960 Age/S: 62 / M [address] [facility] [address] Unit #: [id number] Loc: [place] [address] Phys: Vee Horton Acct: [id number] Dis Date: Status: [facility] ER PHONE #: [phone] Exam Date: 01/04/2023 0940 FAX #: [phone] Reason: GROSS HEMATURIA EXAMS: CPT CODE: [id number] CT ABD PELVIS W/CONT 02581 H 20 TIME OF STUDY: 01/04/2023 7:55 [...] 1 Signed Report (CONTINUED) Name: MATHEW CASTILLO [facility] : 1960 Age/S: 62 / M [address] [place] [address] Bl Unit #: [id number] Loc: [place] [address] Phys: Vee Horton Acct: [id number] Dis Date: Status: REG ER PHONE #: [phone] Exam Date: 01/04/2023 09 FAX #: [phone] Reason: GROSS HEMATURIA EXAMS: CPT CODE: [id number] CT ABD PELVIS W/CONT 87932 (Continued) at 2224 Reported and signed by: Zia Magaña M.D. CC: Lakhwinder Guillermo MD; Vee Horton; Javier Sullivan MD Technologist:Latoya Moeller, RT(R); Lesvia Humphries CTDI: DLP: Trnscb Date/Time: 01/04/2023 (2223) t.SDR.SI1 Orig Print D/T: S: 01/04/2023 (2226) PAGE 2 Signed ReportCOMPREHENSIVE METABOLIC [id number] 21:07:00* Test Item Value Reference Range Interpretation [...] ALKP) 60 IUnit/L 20-125 N CBC W/AUTO [id number] 20:38:00* Test Item Value Reference Range Interpretation [...] (test code = MDIFF) NO BASIC METABOLIC [id number] 08:30:00* Test Item Value Reference Range Interpretation [...] reported result: 4.9 mg/dLEdited by: KRISTEN on 10/31/22:590808 0829: CA previously reported as: 4.9 *L mg/dL Critical [place] [address]/16/22 Nurse read back result and tech confirmed it's correct? Y GLUCOSE [id number] 17:27:00* Test Item Value Reference Range Interpretation Comme nts GLUCOSE BEDSIDE (test code = GLUBED) 109 MG/DL 70-110 N Performed by teto tse at [facility] GLUCOSE [id number] 12:34:00* Test Item Value Reference Range Interpretation Comme nts GLUCOSE BEDSIDE (test code = GLUBED) 95 MG/DL 70-110 N Performed by cer tified rivet tapping 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 at [facility] GLUCOSE [id number] 08:49:00* Test Item Value Reference Range Interpretation Comme nts GLUCOSE BEDSIDE (test code = GLUBED) 117 MG/DL 70-110 H Performed by cer tified rivet tapping 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 at [facility] BASIC METABOLIC [id number] 07:57:00* Test Item Value Reference Range Interpretation [...] = CA) 8.1 mg/dL 8.0-10.5 N GLUCOSE [id number] 17:07:00* Test Item Value Reference Range Interpretation Comme nts GLUCOSE BEDSIDE (test code = GLUBED) 127 MG/DL 70-110 H Performed by cer tified rivet tapping 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 at [facility] GLUCOSE [id number] 12:26:00* Test Item Value Reference Range Interpretation Comme nts GLUCOSE BEDSIDE (test code = GLUBED) 123 MG/DL 70-110 H Performed by cer tified rivet tapping 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 at [facility] GLUCOSE [id number] 07:59:00* Test Item Value Reference Range Interpretation Comme nts GLUCOSE BEDSIDE (test code = GLUBED) 92 MG/DL 70-110 N Performed by cer violeta rivet tapping 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 at [facility] BASIC METABOLIC [id number] 07:38:00* Test Item Value Reference Range Interpretation [...] CA) 7.8 mg/dL 8.0-10.5 L CBC W/AUTO [id number] 07:27:00* Test Item Value Reference Range Interpretation [...] REQUIRED (test code = MDIFF) NO GLUCOSE [id number] 21:25:00* Test Item Value Reference Range Interpretation Comme nts GLUCOSE BEDSIDE (test code = GLUBED) 154 MG/DL 70-110 H Performed by cer tified rivet tapping 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 at [facility] GLUCOSE [id number] 17:43:00* Test Item Value Reference Range Interpretation Comme nts GLUCOSE BEDSIDE (test code = GLUBED) 73 MG/DL 70-110 N Performed by cer tified rivet tapping 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 at [facility] GLUCOSE [id number] 10:08:00* Test Item Value Reference Range Interpretation Comme nts GLUCOSE BEDSIDE (test code = GLUBED) 87 MG/DL 70-110 N Performed by cer tified rivet tapping 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 at [facility] GLUCOSE [id number] 20:12:00* Test Item Value Reference Range Interpretation Comme nts GLUCOSE BEDSIDE (test code = GLUBED) 139 MG/DL 70-110 H Performed by cer tified rivet tapping 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 at [facility] GLUCOSE [id number] 17:32:00* Test Item Value Reference Range Interpretation Comme nts GLUCOSE BEDSIDE (test code = GLUBED) 79 MG/DL 70-110 N Performed by cer tified rivet tapping 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 at [facility] GLUCOSE [id number] 12:14:00* Test Item Value Reference Range Interpretation Comme nts GLUCOSE BEDSIDE (test code = GLUBED) 98 MG/DL 70-110 N Performed by cer tified rivet tapping 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 at [facility] GLUCOSE [id number] 08:36:00* Test Item Value Reference Range Interpretation Comme nts GLUCOSE BEDSIDE (test code = GLUBED) 92 MG/DL 70-110 N Performed by cer tified rivet tapping 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 at [facility] BASIC METABOLIC [id number] 07:50:00* Test Item Value Reference Range Interpretation [...] code = CA) 7.6 mg/dL 8.0-10.5 L [id number] 07:50:00* Test Item Value Reference Range Interpretation Comme nts MAGNESIUM (test code = MAG) 1.53 mg/dL 1.80-2.40 L - CTA CHEST FOR [id number] 00:00:00 [facility] : 1960 Sex: M Name: MATHEW CASTILLO [facility] : 1960 Age/S: 62 / M [address] [place] [address] Blvd Unit #: [id number] Loc: [place] [address] Phys: Sofia Cheng CLINICAL TECH Acct: [id number] Dis Date:Status: ADM IN PHONE #: [phone] Exam Date: 10/23/2022 172 FAX #: [phone] Reason: ELEVATED D DIMER EXAMS: CPT CODE: [id number] [place] [address] PROCEDURE INFORMATION: Exam: CTA ChestWith Contrast Exam date and time: 10/23/2022 5:24 PM Age: 62 years old Clinical indication: Condition or disease; Other: Elevated d dimer TECHNIQUE: Imaging protocol: Computed tomographic angiographyof the chest with contrast. Exam focused on [...] 1 Signed Report (CONTINUED) Name: MATHEW CASTILLO [facility] : 1960 Age/S: 62 / M [address] [place] [address] Unit #: [id number] Loc: [id number] Phys: Sofia Cheng CLINICAL TECH Acct: [id number] Dis Date: Status: ADM IN PHONE #: [phone] Exam Date: 10/23/2022 1720 FAX #: [phone] Reason: ELEVATED D DIMER EXAMS: CPT CODE: [id number] [place] [address] (Continued) flexure compatible with colitis incompletely evaluated. [...] by: Hayden Rg M.D. CC: Sofia Cheng CLINICAL TECH; Salinas Dukes MD Technologist:Latoya Pérez, RT(R)(CT); . CTDI: DLP: Trnscb Date/Time: 10/23/2022 (2012) tHILARIOR.JT18 Orig Print D/T: S: 10/23/2022 (2012) PAGE 2 Signed ReportGLUCOSE [id number] 20:23:00* Test Item Value Reference Range Interpretation Comme nts GLUCOSE BEDSIDE (test code = GLUBED) 123 MG/DL 70-110 H Performed by [facility] tified rivet tapping 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 at [facility] GLUCOSE [id number] 17:34:00* Test Item Value Reference Range Interpretation Comme nts GLUCOSE BEDSIDE (test code = GLUBED) 132 MG/DL 70-110 H Performed by [facility] tified rivet tapping 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 at [facility] GLUCOSE [id number] 11:57:00* Test Item Value Reference Range Interpretation Comme nts GLUCOSE BEDSIDE (test code = GLUBED) 118 MG/DL 70-110 H Performed by [facility] tified rivet tapping 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 at [facility] GLUCOSE [id number] 08:22:00* Test Item Value Reference Range Interpretation Comme nts GLUCOSE BEDSIDE (test code = GLUBED) 100 MG/DL 70-110 N Performed by [facility] [employer] rivet tapping 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 at [facility] BASIC METABOLIC [id number] 08:05:00* Test Item Value Reference Range Interpretation [...] code = CA) 7.8 mg/dL 8.0-10.5 L [id number] 08:05:00* Test Item Value Reference Range Interpretation Comme nts MAGNESIUM (test code = MAG) 1.72 mg/dL 1.80-2.40 L GLUCOSE [id number] 21:10:00* Test Item Value Reference Range Interpretation Comme nts GLUCOSE BEDSIDE (test code = GLUBED) 148 MG/DL 70-110 H Performed by cer tified rivet tapping 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 at [facility] GLUCOSE [id number] 17:29:00* Test Item Value Reference Range Interpretation Comme nts GLUCOSE BEDSIDE (test code = GLUBED) 102 MG/DL 70-110 N Performed by cer tified rivet tapping 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 at [facility] GLUCOSE [id number] 11:54:00* Test Item Value Reference Range Interpretation Comme nts GLUCOSE BEDSIDE (test code = GLUBED) 104 MG/DL 70-110 N Performed by [employer] rivet tapping 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 at [facility] CBC W/MANUAL [id number] 10:35:00* Test Item Value Reference Range Interpretation [...] (test code = PLTMORPH) LARGE PLATELETS GLUCOSE [id number] 07:57:00* Test Item Value Reference Range Interpretation Comme [facility] GLUCOSE BEDSIDE (test code = GLUBED) 95 MG/DL 70-110 N Performed by cer tified rivet tapping 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 at [facility] C REACTIVE [id number] 07:48:00* Test Item Value Reference Range Interpretation Comme [facility] C REACTIVE PROTEIN (test cod e = CRP) 36.0 mg/L <10.0 H BASIC METABOLIC [id number] 07:40:00* Test Item Value Reference Range Interpretation [...] code = CA) 7.3 mg/dL 8.0-10.5 L [id number] 07:40:00* Test Item Value Reference Range Interpretation Comme nts MAGNESIUM (test code = MAG) 1.50 mg/dL 1.80-2.40 L [id number] 07:04:00* Test Item Value Reference Range Interpretation Comme nts D-DIMER (test code = DDIMER) 5949 ng/mlFEU See_Comment HH Critical result called to Brigido RUIZLAB.JJ1 at 0701 10/21/22Nurse read back result and tech confirmed it's correct? YESTHROMBOSIS AND/OR PULMONARY EMBOLISM AND THE CLINICAL CUT- OFF VALUE FOR EXCLUSION (500 ng/mL FEU) OF THESE CONDITIONSIS VALIDATED BY THE BOOKSTORE MANAGER OF THE METHOD. A NEGATIVE D-DIMER [...] this result as normal/abnormal. - DUP VEIN [id number] 00:00:00 [facility] HUANGName: MATHEW CASTILLO : 1960 Sex: M Name: MATHEW CASTILLO [facility] Barrera Huang : 1960 Age/S: 62 / M [address] [place] [address] Unit #: [id number] Loc: [place] [address] Phys: Skip Jaffe MD Acct: [id number] Dis Date: Status: ADM IN PHONE #: [phone] Exam Date: 10/21/2022820 FAX #: [phone] Reason: R/o DVT EXAMS: CPT CODE: [id number] DUP VEIN ASAEL 26111 PROCEDURE INFORMATION: Exam: US Duplex Lower Extremity [...] MD; Salinas Paris MD Technologist: [facility] Date/Time: 10/21/2022 (911) t.SDR.AB61 Orig Print D/T:S: 10/21/2022 (911) Probe: PAGE 1 Signed Report GLUCOSE [id number] 20:40:00* Test Item Value Reference Range Interpretation Comme nts GLUCOSE BEDSIDE (test code = GLUBED) 148 MG/DL 70-110 H Performed by cer tified rivet tapping 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 at [facility] GLUCOSE [id number] 16:46:00* Test Item Value Reference Range Interpretation Comme nts GLUCOSE BEDSIDE (test code = GLUBED) 118 MG/DL 70-110 H Performed by cer tified rivet tapping 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 at [facility] GLUCOSE [id number] 16:46:00* Test Item Value Reference Range Interpretation Comme nts GLUCOSE BEDSIDE (test code = GLUBED) 122 MG/DL 70-110 H Performed by cer tified rivet tapping 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 at [facility] TROP-I HIGH [id number] 15:04:00* Test Item Value Reference Range Interpretation Comme [facility] TROP-I HIGH SENSITIVITY (test code = TROPIHS) [...] URL. These results were obtained using [employer] Ate[employer]actF[employer] IM TnIHreagent. Results from different methodologies should not becompared to one another as quantitative results and URLs mayvary by method. BASIC METABOLIC [id number] 15:04:00* Test Item Value Reference Range Interpretation [...] CA) 7.1 mg/dL 8.0-10.5 L TROP-I HIGH [id number] 10:07:00* Test Item Value Reference Range Interpretation [...] URL. These results were obtained using [employer] IM TnIHreagent. Results from different methodologies should not becompared to one another as quantitative results and URLs mayvary by method. CBC W/AUTO [id number] 09:54:00* Test Item Value Reference Range Interpretation [...] (test code = MDIFF) NO TROP-I HIGH [id number] 09:24:00* Test Item Value Reference Range Interpretation [...] URL. These results were obtained using [employer] IM TnIHreagent. Results from different methodologies should not becompared to one another as quantitative results and URLs mayvary by method. GLUCOSE [id number] 08:49:00* Test Item Value Reference Range Interpretation Comme nts GLUCOSE BEDSIDE (test code = GLUBED) 102 MG/DL 70-110 N Performed by teto mcdaniel rivet tapping 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 at [facility] COMPREHENSIVE METABOLIC [id number] 02:08:00* Test Item Value Reference Range Interpretation [...] code = ALKP) 47 IUnit/L 20-125 N [id number] 02:08:00* Test Item Value Reference Range [facility]ation [facility] (test code = LIP) 57 U/L 13-57 N PROTHROMBIN [id number] 02:05:00* Test Item Value Reference Range Interpretation [facility] PROTHROMBIN TIME PATIENT (test code = PTP) [...] Infarction (to prevent recurrent infarct). THROMBOPLASTIN TIME [id number] 02:05:00* Test Item Value Reference Range Interpretation [facility] THROMBOPLASTIN TIME PARTIAL (test code = PTT) 26.1 Seconds 25.0-39.5 N Therapeutic Rang e: 50.4 - 88.3 Seconds Effective 07/21/2018 LACTIC [id number] 01:59:00* Test Item Value Reference Range Interpretation [facility] LACTIC ACID (test code = LACT) 1.1 mmol/L 0.4-1.9 N CBC W/AUTO [id number] 01:51:00* Test Item Value Reference Range Interpretation [facility] WHITE BLOOD CELL (test code = WBC) [...] = MDIFF) NO - XR CHEST 1 [id number] 00:00:[address] [facility] : 1960 Sex: M FAX: Sofia Cheng NP [phone] [place]: St: [facility] FAX: Salinas Callahan Jacqui [phone] Name: ANNAMATHEW POST [facility] : 1960 Age/S: 62/M [address] [place] [address] Unit #: [id number] Loc: G.66[address] [place] [address] Phys: Sofia Cheng NP Acct: [id number] Dis Date: Status: ADM IN PHONE #: [phone] Exam Date: 10/20/2022106 FAX #: [phone] Reason: Sepsis EXAMS: CPT CODE: [id number] XR CHEST 1 V 79488 PROCEDURE INFORMATION: Exam: XR Chest Exam date and time: 10/20/2022 1:02 AM Age: 62 years old Clinical indication: Pain; Other: Sepsis TECHNIQUE: Imaging protocol: Radiologicexam of the chest. Views: 1 view. COMPARISON: CT CHEST W/CONTRAST, CT ABD PELVIS W/CONT 10/15/2022 9:14 PM FINDINGS: Lungs: Mild interstitial pulmonary edema. No focal consolidation. Pleural spaces: Unremarkable. No pleural effusion. No pneumothorax. Heart/Mediastinum: No cardiomegaly. Bones/joints:No acute abnormality. IMPRESSION: Mild interstitial pulmonary edema. No focal consolidation. at 0214 Reported and signed by: Reinaldo Jacobs M.D. CC: Sofia Cheng CLINICAL TECH; Salinas Dukes MD Technologist: RT Nadeem(R) Trnscrd Date/Time/By: 10/20/2022 (213) : By: [id number] Orig Print D/T: S: 10/20/2022 (5) PAGE 1 Signed ReportGLUCOSE [id number] 21:00:00* Test Item Value Reference Range Interpretation Comme nts GLUCOSE BEDSIDE (test code = GLUBED) 135 MG/DL 70-110 H Performed by cer tified rivet tapping 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 at [facility] URINALYSIS [id number] 20:03:00* Test Item Value Reference Range Interpretation [...] MUCU) 1+ /LPF NONE SEEN UR SODIUM [id number] 20:03:00* Test Item Value Reference Range Interpretation Comme nts UR SODIUM RANDOM (test code = ALPHONSE) 102 MEQ/L The Reference Ra nge and Method Performance specificationshave not been established for this fluid. The test resultshould be correlated into the clinical context forinterpretation. UR PROTEIN [id number] 20:03:00* Test Item Value Reference Range Interpretation Comme nts UR PROTEIN RANDOM (test code = PROTU) 79 mg/dL UR CREATININE [id number] 20:03:00* Test Item Value Reference Range Interpretation Comme nts UR CREATININE RANDOM (test code = CREATU) 111.9 mg/dL The Reference Ra nge and Method Performance specificationshave not been established for this fluid. The test resultshould be correlated into the clinical context forinterpretation. UR OSMOLALITY [id number] 20:03:00* Test Item Value Reference Range Interpretation Comme nts UR OSMOLALITY RANDOM (test c ode = OSMOU) 575 MOS/KG 300-1000 UR OSMOLALITY [id number] 20:02:00* Test Item Value Reference Range Interpretation Comme nts UR OSMOLALITY RANDOM (test c ode = OSMOU) 575 MOS/KG 300-1000 N GLUCOSE [id number] 17:18:00* Test Item Value Reference Range Interpretation Comme nts GLUCOSE BEDSIDE (test code = GLUBED) 122 MG/DL 70-110 H Performed by cer tified rivet tapping 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 at [facility] GLUCOSE [id number] 12:48:00* Test Item Value Reference Range Interpretation Comme nts GLUCOSE BEDSIDE (test code = GLUBED) 109 MG/DL 70-110 N Performed by cer tified rivet tapping 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 at [facility] GLUCOSE [id number] 07:53:00* Test Item Value Reference Range Interpretation Comme nts GLUCOSE BEDSIDE (test code = GLUBED) 96 MG/DL 70-110 N Performed by [employer] tified rivet tapping 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 at [facility] BASIC METABOLIC [id number] 07:51:00* Test Item Value Reference Range Interpretation [...] code = CA) 7.5 mg/dL 8.0-10.5 L [id number] 07:51:00* Test Item Value Reference Range Interpretation Comme nts MAGNESIUM (test code = MAG) 1.65 mg/dL 1.80-2.40 L CBC W/AUTO [id number] 07:07:00* Test Item Value Reference Range Interpretation [...] (test c ode = MDIFF) NO GLUCOSE [id number] 20:44:00* Test Item Value Reference Range Interpretation Comme nts GLUCOSE BEDSIDE (test code = GLUBED) 116 MG/DL 70-110 H Performed by cer tified rivet tapping 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 at [facility] GLUCOSE DSYRBKJ2774-97-52 18:07:00* Test Item Value Reference Range Interpretation Comme nts GLUCOSE BEDSIDE (test code = GLUBED) 98 MG/DL 70-110 N Performed by cer tified rivet tapping 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 at [facility] GLUCOSE JBFSJVZ3957-04-39 12:23:00* Test Item Value Reference Range Interpretation Comme nts GLUCOSE BEDSIDE (test code = GLUBED) 135 MG/DL 70-110 H Performed by cer tified rivet tapping 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 at [facility] GLUCOSE BYWYVTA5415-35-67 11:22:00* Test Item Value Reference Range Interpretation Comme nts GLUCOSE BEDSIDE (test code = GLUBED) 104 MG/DL 70-110 N Performed by [facility] tified rivet tapping 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 at [facility] BASIC METABOLIC JFNGW9363-29-03 08:12:00* Test Item Value Reference Range Interpretation [...] code = CA) 7.4 mg/dL 8.0-10.5 L NRNRWBGLK4995-40-93 08:12:00* Test Item Value Reference Range Interpretation Comme nts MAGNESIUM (test code = MAG) 1.48 mg/dL 1.80-2.40 L CBC W/AUTO SSWG1409-33-66 08:09:00* Test Item Value Reference Range Interpretation [...] (test c ode = MDIFF) NO GLUCOSE ZTFZFLZ9783-00-44 05:56:00* Test Item Value Reference Range Interpretation Comme nts GLUCOSE BEDSIDE (test code = GLUBED) 104 MG/DL 70-110 N Performed by cer tified rivet tapping 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 at [facility] GLUCOSE VEBWOGY2518-72-21 03:31:00* Test Item Value Reference Range Interpretation Comme nts GLUCOSE BEDSIDE (test code = GLUBED) 129 MG/DL 70-110 H Performed by cer tified rivet tapping 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 at [facility] GLUCOSE NLTGGRC5533-49-47 12:50:00* Test Item Value Reference Range Interpretation Comme nts GLUCOSE BEDSIDE (test code = GLUBED) 177 MG/DL 70-110 H Performed by cer tified rivet tapping 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 at [facility] CBC W/AUTO IPRB6283-73-40 10:14:00* Test Item Value Reference Range Interpretation [...] 0.00 x10 3/uL 0.0-0.1 N VITAMIN D 42-MWFDCVR4388-64-13 08:19:00* Test Item Value Reference Range Interpretation Comme nts VITAMIN D 25-HYDROXY (test c ode = VITD25) 25.5 ng/mL 30-100 L Indication for Test: PTH DisorderCOMPREHENSIVE METABOLIC UDNFR4282-97-23 08:14:00* Test Item Value Reference Range Interpretation [...] code = ALKP) 62 IUnit/L 20-125 N YKVDBXKVIGY0335-08-09 08:14:00* Test Item Value Reference Range Interpretation Comme nts PHOSPHOROUS (test code = PHOS) 2.6 MG/DL 2.5-4.9 N KXQBEOHAR0554-67-97 08:14:00* Test Item Value Reference Range Interpretation Comme nts MAGNESIUM (test code = MAG) 1.50 mg/dL 1.80-2.40 L GLUCOSE QNOMCMA9896-22-64 07:40:00* Test Item Value Reference Range Interpretation Comme nts GLUCOSE BEDSIDE (test code = GLUBED) 105 MG/DL 70-110 N Performed by cer tified rivet tapping 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 at [facility] GLUCOSE TVVIANO2595-05-66 17:26:00* Test Item Value Reference Range Interpretation Comme [facility] GLUCOSE BEDSIDE (test code = GLUBED) 113 MG/DL 70-110 H Performed by cer violeta rivet tapping 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 at [facility] PROTHROMBIN [id number] 15:23:00* Test Item Value Reference Range Interpretation Comme [facility] PROTHROMBIN TIME PATIENT (test code = PTP) [...] (to prevent recurrent infarct). TSH REFLEX TO [id number] 14:32:00* Test Item Value Reference Range Interpretation Comme [facility] TSH REFLEX TO FT4 (test code = TSHREFLEX) 1.59 IU/mL 0.42-5.47 N HGBA1C%2022-10-16 14:19:00* Test Item Value Reference Range Interpretation Comme [facility] HGBA1C% (test code = HGBA1C%) 5.5 %A1C 4.8-6.0 N QDFIOSACL0474-04-23 14:13:00* Test Item Value Reference Range Interpretation Comme [facility] MAGNESIUM (test code = MAG) 1.91 mg/dL 1.80-2.40 N COMPREHENSIVE METABOLIC UKJDC1536-77-33 14:13:00* Test Item Value Reference Range Interpretation Comme [facility] SODIUM (test code = NA) 138 mEq/L [...] = ALKP) 62 IUnit/L 20-125 N GLUCOSE FSFZKPN5961-88-87 12:54:00* Test Item Value Reference Range Interpretation Comme nts GLUCOSE BEDSIDE (test code = GLUBED) 102 MG/DL 70-110 N Performed by cer tified rivet tapping 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 at [facility] GLUCOSE KHLSTTF1828-17-07 10:14:00* Test Item Value Reference Range Interpretation Comme nts GLUCOSE BEDSIDE (test code = GLUBED) 110 MG/DL 70-110 N Performed by [employer] rivet tapping 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 at [facility] CBC W/AUTO MLLD1624-29-19 05:58:00* Test Item Value Reference Range Interpretation [...] Notes Date/Time Note Provider Source 2023-02-14 02:12:00 [id number] VK0aht/gkth9a1bz2so9xHdMXNrM7 +kx4VWUDqJT4FX/sNbEF7zfKN/y6407-15-60H80:12:00 [facility] ([facility])Discharge SummaryREPORT#:[id number] REPORT STATUS: SignedREPORT INITIALIZATION DATE:02/14/23 TIME: 211 PATIENT: MATHEW CASTILLO UNIT #: [id number]#: [id number] ROOM/BED: 5507-1DOB: [birth year] AGE: 62 SEX: M [...] HYDRONEPHROSIS J98.11 ATELECTASIS N17.9 ACUTE KIDNEY FAILURE, CKJYKPAJZJKT58.8 OTHER RETENTION OF URINE D72.829 ELEVATED WHITE BLOOD CELL COUNT, UNSPECIFIED E83.39 OTHER DISORDERS OF PHOSPHORUS METABOLISM F20.9 SCHIZOPHRENIA, UNSPECIFIED E83.42 HYPOMAGNESEMIA I10 ESSENTIAL (PRIMARY) HYPERTENSION 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 N40.1 BENIGN PROSTATIC HYPERPLASIA WITH LOWER URINARY TRACT SYMP Hospital course:62-year-old male with last medical history of, BPH-s/p UroLift 01/03/2023, schizophrenia was transferred from [facility] with acute kidney injury and urinary [...] (Auto) (14.0 - 32.0 %) 7.1 L [place] % (Auto) (4.8 - 9.0 %) 8.1 Eos % (Auto) (0.3 - 3.7 %) 0.4 Baso % (Auto) (0.0 - 2.0 %) 0.1 Neut # (Auto) (2.0 - 7.6 x10 3/uL) 9.37 H Lymph # (Auto) (1.0 - 3.8 x10 3/uL) 0.79 L [place] # (Auto) (0.1 - 0.8 x10 3/uL) [...] 3/uL) 0.[address] ABD PELVIS W/CONT 29565 EXAM: CT abdomen and pelvis with contrast [...] Care Discharge InstructionsAdditional Discharge Routines: PCP Follow-Up, 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)( Diet: Regular Follow-up AppointmentsPCP follow up: PCP: Lakhwinder Guillermo MD PCP follow up timeframe: In 5 daysAttending Physician: Attending Physician: Salinas Alba MD Attending physician follow up timeframe: In 1-2 weeksConsulting provider 1: Provider 1: Dave Jones MD Specialty: Urology Consult follow up timeframe: In 1-[address] [place] [address] #:[id number] OF REPORTDSDischarge fogwjqu5600-02-09M68:12:00G.DGRC63292951-4121AKTv ailable for patient lpwdOZUEFINBNEPURC5112-37-76H63:16:15 [facility] 2023-02-04 04:06:00 [id number] 3jTko3soi2PKIGlddTA3thhw03F97 TWjX+D/HedHVsaVniE3L44+dN8W7736-67-21T11:06:00 [facility] ([facility])Discharge SummaryREPORT#:[id number] REPORT STATUS: SignedREPORT INITIALIZATION DATE:02/04/23 TIME: 0406 PATIENT: MATHEW CASTILLO UNIT #: [id number]#: [id number] ROOM/BED: RadhaR284-9VSS: 59 AGE: 62 SEX: M ATTEND: Salinas [...] lift yesterday by Dr. Jones transferred from [place] for urology evaluation secondary tohematuria after bladder [...] range of motion, normal sensory, normal motor functionNeuro/SEED YEAST OPERATOR: alert, oriented X 3Skin: dry, intact, no [...] % (Auto) (14.0 - 32.0 %) 20.8 [place] % (Auto) (4.8 - 9.0 %) 7.7 Eos % (Auto) (0.3 - 3.7 %) 8.1 H Baso % (Auto) (0.0 - 2.0 %) 0.7 Neut # (Auto) (2.0 - 7.6 x10 3/uL) 4.51 Lymph # (Auto) (1.0 - 3.8 x10 3/uL) 1.51 [place] # (Auto) (0.1 - 0.8 x10 3/uL) [...] 3/uL) 0.[address] ABD PELVIS W/CONT 79777 H 20 TIME OF STUDY: 01/04/2023 7:55 [...] Care Discharge InstructionsAdditional Discharge Routines: PCP Follow-Up, 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)( Diet: Cardiac Follow-up AppointmentsPCP follow up: PCP: Lakhwinder Guillermo MD PCP follow up timeframe: In 5 days Special instructions:CALL TO MAKE APPOINTMENTConsulting provider 1: Provider 1: Dave Jones MD Specialty: Urology Special instructions:CALL TO SCHEDULE APPOINTMENT at [address] [facility] #:[id number] OF REPORTDSDischarge icttxvu6949-84-94P48:06:00G.MJAI08800887-1728CBAp ailable for patient adpdNTIZPXJSWJLEMN5177-81-45B56:36:15 [facility] 2023-01-27 18:31:00 [id number] c4pDWc/QKUjerh/omMhkk7IyxEUX9 ViLFePTy9r6VH54X5oq74XgbaSU9475-57-12Z23:31:28171 3-0230 [place] [address] PATIENT NAME: MATHEW CASTILLO ADMIT DATE: 01/06/23ACCOUNT NO: [id number] ROOM NO: [facility] AGE: 62 REPORT TYPE: 360 - QUERY RESPONSE DOCUMENT SEX: M ADMITTING PHYSICIAN:Salinas Alba MD ATTENDING PHYSICIAN:Salinas Alba MD Provider Query QUERY TEXT: Condition General 360MD Query related questions should be directed to: [facility] Coding Query Helpline [Based on the below [...] AM at 1831 PATIENT NAME: MATHEW CASTILLO noteG.[id number] for patient ebhmCKENIZNNOSRUIE2082-80-05P50:31:38 [facility] 2023-01-27 13:09:00 [id number] fqFWbug+aseyPppzw/C5FcvdW+/8Y tER/dqjmWCp7vw++OgsF9p4ClGt8264-53-29E65:09:79084 3-0114 [place] [address] PATIENT NAME: MATHEW CASTILLO ADMIT DATE: 01/06/23ACCOUNT NO: [id number] ROOM NO: G.C146 AGE: 62 REPORT TYPE: 360 - QUERY RESPONSE DOCUMENT SEX: M ADMITTING PHYSICIAN:Salinas Alba MD ATTENDING PHYSICIAN:Salinas Alba MD Provider Query QUERY TEXT: Condition General 360MD Query related questions should be directed to: [facility] Coding Query Helpline [Based on your medical judgement and the clinical indicators listed below kindly specify the underlying cause of the patient's heamaturia(Hematuria due to bladder lift surgery, hematuria due to UTI, hematuria unspecified, or other more appropriate diagnosis)?.] The patient's Clinical Indicators include:62-year-old male with last medical history of, BPH, s/p bladder lift yesterdayby Dr. Jones transferred from [place] for urology evaluation secondary tohematuria after bladder [...] AM at 1309 PATIENT NAME: MATHEW CASTILLO noteG.[id number] for patient xhnhYOQZHDGIUHXMTI8001-21-04B42:10:17 [facility] 2023-01-27 13:09:00 [id number] ILGDbnM8HxX4bD6YVVefPtp6ywk8h OEIqT3dqnsHHrJ0TWp/6veBLPsv2394-43-68D10:09:74447 3-0115 [place] [address] PATIENT NAME: MATHEW CASTILLO ADMIT DATE: 01/06/23ACCOUNT NO: [id number] ROOM NO: G.C146 AGE: 62 REPORT TYPE: 360 - QUERY RESPONSE DOCUMENT SEX: M ADMITTING PHYSICIAN:Salinas Alba MD ATTENDING PHYSICIAN:Salinas Alba MD Provider Query QUERY TEXT: Condition General 360MD Query related questions should be directed to: [facility] Coding Query Helpline [Based on your clinical [...] Delivery Room air 01/04 192Temp 37.4 01/04 1926Pulse 102 01/04 1926Resp 16 01/04 1926Leukocytosis, UTI (urinary tract infection)WBC (4.5 - 11.0 x10 3/uL) 16.7 H : Ed physician record 01/04/2023His urine culture has shown growth of Pseudomonas aeruginosa and 1out of 2 blood culture has shown growth of Enterococcus faecalis.TheEnterococcus faecalis growing in 1 blood culture, likely could be eithercontaminant or sales representative health insurance of transient bacteremia: progress note 01/11/2023 Options provided:-- Respond - Create new note now-- Dismiss - Not applicable / Not valid-- Dismiss - Clinically unable to determine / Unknown-- Assign to another provider QUERY RESPONSE: sepsis was not confirmed, patient had localized infection Query created by: MADY PEREZ on 01/22/2023 3:09 AM at 1309 PATIENT NAME: MATHEW CASTILLO noteG.[id number] for patient nxbmFWPSCZQUMOUEHQ2862-89-41W66:10:27 [facility] 2023-01-22 17:40:00 [id number] cSB3WvMC2JxbisOQvJ2DyK2YWCNoi zU3fqtZkfoicoHtodYTdVRklyxr3496-67-60T09:40:00 [facility])Internal Medicine Prog. NoteREPORT#:[id number] REPORT STATUS: SignedREPORT INITIALIZATION DATE:01/22/23 TIME: 1740 PATIENT: MATHEW CASTILLO UNIT #: [id number]#: [id number] ROOM/BED: 5507-1DOB: [birth year] AGE: 62 SEX: M ATTEND: Salinas Alba I MDADM AUTHOR: Sofia Cheng NPREPT SERVICE DT/TIME: 01/22/23 1740* ALL edits or amendments must be made on the electronic/computer document * Objective GeneralVS/I O:Vital SignsDate Temp Pulse Resp B/P B/P Mean Pulse Ox OxJ295/17-01/22 36.6-37.0 78-88 14-20 109-137/64-82 80.9-100.0 95-98 Last [...] Sodium Chloride (SODIUM CHLORIDE 0.9%) 1,000 ML .V86X43B IV Haloperidol (HALDOL) 10 MG BID PO [...] (Auto) (14.0 - 32.0 %) 9.8 L [place] % (Auto) (4.8 - 9.0 %) 9.0 Eos % (Auto) (0.3 - 3.7 %) 5.7 H Baso % (Auto) (0.0 - 2.0 %) 0.4 Neut # (Auto) (2.0 - 7.6 x10 3/uL) 7.35 Lymph # (Auto) (1.0 - 3.8 x10 3/uL) 0.97 L [place] # (Auto) (0.1 - 0.8 x10 3/uL) [...] notes:discharged see discharge summery at 2132 RPT #:[id number] OF REPORTPRProgress lsnd7895-47-66F91:40:00G.CFEX01052073-4933WMAhdlq able for patient ccbiSLDEGDVNJDOUKL0609-07-55M39:33:02 [facility] 2023-01-22 12:19:00 [id number] MJ/D3jesWsUPTfsKyfqWrJxnu5Z// LFk1e8zEo+EiQOkhkOq+IeS71fw7701-57-75O13:19:00 [facility] ([facility])Nephrology Consultation NoteREPORT#:[id number] REPORT STATUS: SignedREPORT INITIALIZATION DATE:01/22/23 TIME: 1218 PATIENT: MATHEW CASTILLO UNIT #: [id number]#: [id number] [address]DOB: [birth year] AGE: 62 SEX: M ATTEND: Salinas Alba MDA AUTHOR: Carmen KempPREBROOKLYNN SERVICE DT/TIME: 01/22/23 1219* ALL edits or [...] thepatient given empirc abx and transferred to [facility] yesterday for furtherevaluation and management. Initial VS [...] Acetaminophen 650 MG Q4H PRN PRN 01/21 233 AC (TYLENOL) PO 04/21 2328 Hydrocodone Bitart/ [...] Time Status Admin Sodium Chloride 1,000 ML .Z24S93C 01/21 2330 AC 01/22 (SODIUM CHLORIDE IV [...] Sodium Chloride (SODIUM CHLORIDE 0.9%) 1,000 ML .N02I74K IV Haloperidol (HALDOL) 10 MG BID PO [...] (Auto) (14.0 - 32.0 %) 9.8 L [place] % (Auto) (4.8 - 9.0 %) 9.0 Eos % (Auto) (0.3 - 3.7 %) 5.7 H Baso % (Auto) (0.0 - 2.0 %) 0.4 Neut # (Auto) (2.0 - 7.6 x10 3/uL) 7.35 Lymph # (Auto) (1.0 - 3.8 x10 3/uL) 0.97 L [place] # (Auto) (0.1 - 0.8 x10 3/uL) [...] 264 mGy-cm CTDI: 212 mGy Impression By: KemBC0 - John Berumen M.D. Diagnosis, Assessment Plan [...] and . at 1923 at 1933 RPT #:[id number] OF REPORTMIOpeqfrqunmqx0712-55-10J53:19:00G.PDOC2 9174639-5408LPZfvthewgc for patient kienBGSWPBAYBDVXCI3438-57-77H62:23:39 [facility] 2023-01-21 19:40:00 [id number] GFFA+AFHimxdUAKSHanlivZ9+XbyB U7yQMpcMaZFs51pLJ7NUiypr1Vj2593-80-22J15:40:00 [facility])Urology Consult NoteREPORT#:[id number] REPORT STATUS: SignedREPORT INITIALIZATION DATE:01/21/23 TIME: 1939 PATIENT: MATHEW CASTILLO UNIT #: [id number]#: [id number] [address] [birth year] AGE: 62 SEX: M ATTEND: Salinas Alba MDADM AUTHOR: Crystal Alberts MDREPT SERVICE DT/TIME: [...] at outside hospital and was transferred to [facility] with acute renal failure and urinary retention. Outside labs showed creatinine of 5.6, GFR 11. They were able to place a catheter at the outside hospital and his creatinine currently is 2.6 GFR 27. Patient feels overall well he has a [address] that is patent and draining [...] (Auto) (14.0 - 32.0 %) 7.1 L [place] % (Auto) (4.8 - 9.0 %) 8.1 Eos % (Auto) (0.3 - 3.7 %) 0.4 Baso % (Auto) (0.0 - 2.0 %) 0.1 Neut # (Auto) (2.0 - 7.6 x10 3/uL) 9.37 H Lymph # (Auto) (1.0 - 3.8 x10 3/uL) 0.79 L [place] # (Auto) (0.1 - 0.8 x10 3/uL) [...] in outside hospital and was transferred to [facility]. He has indwelling Black placed from the outside hospital that is patent and draining clear urine. Creatinine has down trended to 2.6 from 5.6. -Continue indwelling Black do not remove-Trend creatinine-Discussed patient to follow-up with our clinic 01/30/2023 for nurse visit catheter removal and CIC teaching for which he was amenable to trying Crystal Alberts MD -covering for Dr. Jones [facility] at 1948 RPT #:[id number] OF REPORTAZFdefxzkaaswl4934-11-69A01:40:00G.PDOC2 4992989-6934IJEwupxauhf for patient mdvcPALBJOSJJEBLDM3903-58-12H49:48:32 [facility] 2023-01-21 10:48:00 [id number] vzE8uc+FDW3z7NMdfv1w7n3NMF918 GpyZImGhuL3Y2wGuU+2KmIgEl0c4753-75-25S65:48:00 [facility] ([facility])History Physical - AdultREPORT#:[id number] REPORT STATUS: SignedREPORT INITIALIZATION DATE:01/21/23 TIME: 1048 PATIENT: MATHEW CASTILLO UNIT #: [id number]#: [id number] ROOM/BED: 5507-1DOB: [birth year] AGE: 62 SEX: M ATTEND: Salinas Alba I [facility] AUTHOR: Sofia Cheng NPREPT SERVICE DT/TIME: 01/21/23 1048* ALL edits or amendments must be made on the electronic/computer document * History of Present Illness HPIChief complaint:Acute kidney injuryUrinary retentionHPI: 62-year-old male with last medical history of, BPH-s/p UroLift 01/03/2023, schizophrenia was transferred from [facility] with acute kidney injury and urinary [...] range of motion, normal sensory, normal motor functionNeuro/SEED YEAST OPERATOR: alert, oriented X 3Skin: dry, intact, no [...] (Auto) (14.0 - 32.0 %) 7.1 L [place] % (Auto) (4.8 - 9.0 %) 8.1 Eos % (Auto) (0.3 - 3.7 %) 0.4 Baso % (Auto) (0.0 - 2.0 %) 0.1 Neut # (Auto) (2.0 - 7.6 x10 3/uL) 9.37 H Lymph # (Auto) (1.0 - 3.8 x10 3/uL) 0.79 L [place] # (Auto) (0.1 - 0.8 x10 3/uL) [...] range of motion, normal sensory, normal motor functionNeuro/SEED YEAST OPERATOR: alert, oriented X 3Skin: dry, intact, no gross abnormalitiesPsychiatry: Mild anxiety Diagnosis, Assessment Plan Free Text DxA P NotesFree Text DxA P Notes:Assessment:62-year-old male with last medical history of, BPH-s/p UroLift 01/03/2023, schizophrenia was transferred from [facility] with acute kidney injury and urinary [...] clinical course at 0300 at 1108 RPT #:[id number] OF REPORTHPHistory and physical cnwrquccuob4527-48-35A65:48:00G.DLEX88581704-7731 AVAvailable for patient tfgxAMGIZPMSPLCSVR6289-11-19I37:00:45 [facility] 2023-01-21 05:27:00 [id number]/Lisa kWPOgR8yDU+/D6kpaXWNFL/wjkHzc eqlM31FfGdaME18HVy9iw9LUl7C7408-67-88L78:27:00 [facility] PROVID[facility] REPORTREPORT#:[id number] REPORT STATUS: SignedDATE:01/21/23 TIME: 526 PATIENT: MATHEW CASTILLO UNIT #: [id number]#: [id number] [address] SEX: M PCP PHYS: Lakhwinder Guillermo MDSERVICE AUTHOR: Elizabeth Davenport APRNNP * ALL edits or amendments must be made on the electronic/computer document * Elizabeth Davenport 01/21/23 0527:HPI-General Illness Free Text HPI NotesFree Text HPI Pnbkn86-tcvb-nmz male with PMH as listed below presents to the ER as a transfer from [facility] for diagnoses of ARF, urinary retention. Patient presented to the ER for evaluation of abdominal pain and urine retention that started 1 week ago after having his black catheter removed. A 14fr coude catheter was placed. Diagnostic w/u noted WBC of 14, creatinine 5.6, GFR 11, BKM207. Pt was given cefepime 1 g at 00 37, Merrem 500 mg at 01 56 and 1 L normal saline bolus LEAD TECHNICIAN upon arrival, patient notes improved but not completely resolved lower abdominal pain. He denies any additional symptoms such as recentfever, chest pain, shortness of breath, N/V/D/C, testicular pain or any other symptoms. GeneralInitial Greet Date/Time 01/21/23 0514PCPhacktan, uroAMIN, PCP, [facility] PresentationChief Complaint __ (urine retention)Hx Obtained From [...] No palpable masses or pulsatile masses. Negative Dumas Sign. [facility] Indwelling Black, straw-colored, non-cloudy urine, [...] (Auto) (14.0 - 32.0 %) 7.1 L [place] % (Auto) (4.8 - 9.0 %) 8.1 Eos % (Auto) (0.3 - 3.7 %) 0.4 Baso % (Auto) (0.0 - 2.0 %) 0.1 Neut # (Auto) (2.0 - 7.6 x10 3/uL) 9.37 H Lymph # (Auto) (1.0 - 3.8 x10 3/uL) 0.79 L [place] # (Auto) (0.1 - 0.8 x10 3/uL) [...] patient had complaint of urinary retention, requiring Blakc placement. Patient condition warrants admission, IV fluids, [...] kidney injury)Secondary Impressions: Obstructive uropathy [facility] Sal[facility] Alba MD [facility] Physician Hospitalist Request Time 0623 Request [...] the patient along with involvement of the PA/CLINICAL TECH. I agree with the PA/office engineer findings and plan. I have performed all aspects of MDM as documented including: evaluation of the patient/patient's condition(s), review and analysis of available data, and determinationof risk of patient management decisions. at 2244 at 1025RPT #:[id number] OF REPORTEDEmergen department hvqdsm2228-64-24P29:27:00G.JPBJ89615077-9385LZPnf ilable for patient swtpUGKHOCEWVPLPLR3994-19-59Z71:46:19 [facility] 2023-01-15 09:31:00 [id number] RxTgabEfnkIkj20VRcYIP/j8o5xDN 70bkzzeZVY3Q1Z8BiDH6I564TLV4155-79-23G49:31:99909 1-[address] [address] PATIENT NAME: MATHEW CASTILLO ADMIT DATE: 01/06/23ACCOUNT NO: [id number] ROOM NO: GC146 AGE: 62 REPORT TYPE: 360 - QUERY RESPONSE DOCUMENT SEX: M ADMITTING PHYSICIAN:Salinas Alba MD ATTENDING PHYSICIAN:Salinas Alba MD Provider Query QUERY TEXT: Clarification Rule In Rule Out 360MD Query related questions should be directed to: [facility] Coding Query Help-line Based on your clinical [...] AM at 0931 PATIENT NAME: MATHEW CASTILLO noteG.[id number] for patient kukcFIDYJBLBECDZKS7736-68-87Z06:31:59 [facility] 2023-01-11 17:08:00 [id number] 9WrdRTo+JW8rkyOOUdYsmi4uboeja 5D7mk4rFEtKgFMcHWJiMr1kZu7X5746-46-43R21:08:76310 7-0170 [place] [address] PATIENT NAME: MATHEW CASTILLO ADMIT DATE: 01/06/23ACCOUNT NO: [id number] ROOM NO: [facility] AGE: 62 REPORT TYPE: PROGRESS NOTE SEX: [...] he was admitted through Emergency [facility] facility [facility], and from there, he was transferred to [facility]. The patient PATIENT NAME: MAHTEW CASTILLO was evaluated by Urology Service. He was placed on broad-spectrum IVantibiotics. His urine culture has shown growth of Pseudomonas aeruginosa and 1out of 2 blood culture has shown growth of Enterococcus faecalis. TheEnterococcus faecalis growing in 1 blood culture, likely could be eithercontaminant or sales representative health insurance of transient bacteremia. Clinically is doingfairly well. His urine culture has shown growth of Pseudomonas aeruginosa. Fornow, we will continue him on the present treatment, and once he is ready to bedischarged home, we will switch him to oral ciprofloxacin. Discussed with thepatient's nursing staff and with MARLENA Cheng. Dictated By: Skip Jaffe MD Date Dictated: 01/11/2023 17:08:17Date Transcribed: 01/11/2023 18:52:55HA/Nicole #: [id number] ID: [id number] Authenticated and Edited by Skip Jaffe MD On 01/22/23 5:19:12 AM at 0520 PATIENT NAME: MATHEW CASTILLO [id number]:52:00G.[id number] ble for patient mnppRTCWMGWNNJRJCU1407-98-93N87:21:34 [facility] 2023-01-10 21:43:00 [id number] [id number]+PPQmmBxkgp gMjfJSQ2FspxczG02evYNtC0SnG1173-42-76J76:43:00 [facility])Internal Medicine Prog. NoteREPORT#:[id number] REPORT STATUS: SignedREPORT INITIALIZATION DATE:01/10/23 TIME: 2142 PATIENT: MATHEW CASTILLO UNIT #: [id number]#: [id number] [address] AGE: 62 SEX: M ATTEND: [place] [facility] AUTHOR: Sofia Cheng NPREPT SERVICE DT/TIME: 01/10/232142* ALL edits or amendments must be made on the electronic/computer document * SubjectiveChief complaint:HematuriaHPI:62-year-old male with last medical history of, BPH, s/p bladder lift yesterday by Dr. Jones transferred from [place] for urology evaluation secondary tohematuria after bladder [...] MLSodium Chloride (SODIUM CHLORIDE 0.9%) 1,000 ML .[id number] IV (DC) Sodium Chloride (SODIUM CHLORIDE 0.9%) [...] range of motion, normal sensory, normal motor functionNeuro/SEED YEAST OPERATOR: alert, oriented X 3Skin: dry, intact, no gross abnormalitiesPsychiatry: no hallucinations, normal affect, normal judgment/insight, normal mood, not homicidal, not suicidal Free Text DxA P NotesFree text DxA P notes:Assessment:62-year-old male with last medical history of, BPH, s/p bladder lift yesterday by Dr. Jones transferred from [place] for urology evaluation secondary tohematuria after bladder [...] electrolytesRepeat labsFurther recommendation based on patient's clinical vfjiyo3301/06/2023Vital signs within normal limitsBlood culture shows Enterococcus [...] urology outpatient at 0024 at 0814 RPT #:[id number] OF REPORTPRProgress gzbt1499-06-25K36:43:00G.FLQO31351722-9746RQQtndq able for patient pizsPDPKIDOETDDNEV3936-26-19V83:25:19 [facility] 2023-01-10 20:39:00 [id number]/Z+Wz OiAQ2jpJ1RlPBDWeqVXkidp6BCXBU eQOaxWISW5cvu0fR6QSWPx4d+tv2472-95-44U61:39:00 [facility] ([facility])Infectious Dis. Progress NoteREPORT#:[id number] REPORT STATUS: SignedREPORT INITIALIZATION DATE:01/10/23 TIME: 2038 PATIENT: MATHEW CASTILLO UNIT #: [id number]#: [id number] [address] AGE: 62 SEX: M ATTEND: [...] home on oral ciprofloxacin. at 0244 RPT #:[id number] OF REPORTPRProgress iolp0785-62-35K95:39:00G.MFWM78542240-7966HCUxnwa able for patient oarbCWPZUGVWZJKWOD6523-31-78H50:44:38 [facility] 2023-01-10 08:39:00 [id number] EM+NNpSp0/BZL12Uo3Iman/zJTMUe eDhGbYsHmLxzbogIOitJJ/W9e0t4163-50-35U91:39:40944 6-0055 [place] [address] PATIENT NAME: MATHEW CASTILLO ADMIT DATE: 01/06/23ACCOUNT NO: [id number] ROOM NO: [facility] AGE: 62 REPORT TYPE: PROGRESS NOTE SEX: [...] Date Dictated: 01/10/2023 08:39:27Date Transcribed: 01/10/2023 09:42:11HA/KYLE Dsxnfso ID: [id number] Authenticated and Edited by Skip Jaffe MD On 01/22/23 5:19:04 AM at 0520 PATIENT NAME: MATHEW CASTILLO dzfd9318-42-78A03:42:00G.CBO58330450-7193KHIhlxhk ble for patient jnflDEOHLSKFOWHWUI2730-39-09N30:21:54 [facility] 2023-01-09 22:29:00 [id number] yY5Whp8uTFGyv933iFcO9PerojHrq snLR14ccACkB2WFWKWT87oiTi5z8397-21-53W80:29:00 [facility] ([facility])Internal Medicine Prog. NoteREPORT#:[id number] REPORT STATUS: SignedREPORT INITIALIZATION DATE:01/09/23 TIME: 2228 PATIENT: MATHEW CASTILLO UNIT #: [id number]#: [id number] [address] AGE: 62 SEX: M ATTEND: Salinas Alba I MDABRADEN AUTHOR: Sofia Cheng NPREPT SERVICE DT/TIME: 01/09/232228* ALL edits or amendments must be made on the electronic/computer document * SubjectiveChief complaint:HematuriaHPI:62-year-old male with last medical history of, BPH, s/p bladder lift yesterday by Dr. Jones transferred from [place] for urology evaluation secondary tohematuria after bladder [...] MLSodium Chloride (SODIUM CHLORIDE 0.9%) 1,000 ML .[id number] IV Sodium Chloride (SODIUM CHLORIDE 0.9%) 1,000 [...] - 10.5 mg/dL) 8.6 Laboratory Tests 01/09 05 Hematology WBC (4.5 - 11.0 x10 3/uL) [...] % (Auto) (14.0 - 32.0 %) 20.8 [place] % (Auto) (4.8 - 9.0 %) 7.7 Eos % (Auto) (0.3 - 3.7 %) 8.1 H Baso % (Auto) (0.0 - 2.0 %) 0.7 Neut # (Auto) (2.0 - 7.6 x10 3/uL) 4.51 Lymph # (Auto) (1.0 - 3.8 x10 3/uL) 1.51 [place] # (Auto) (0.1 - 0.8 x10 3/uL) [...] range of motion, normal sensory, normal motor functionNeuro/SEED YEAST OPERATOR: alert, oriented X 3Skin: dry, intact, no gross abnormalitiesPsychiatry: no hallucinations, normal affect, normal judgment/insight, normal mood, not homicidal, not suicidal Free Text DxA P NotesFree text DxA P notes:Assessment:62-year-old male with last medical history of, BPH, s/p bladder lift yesterday by Dr. Jones transferred from [place] for urology evaluation secondary tohematuria after bladder [...] electrolytesRepeat labsFurther recommendation based on patient's clinical kndieu9601/06/2023Vital signs within normal limitsBlood culture shows Enterococcus [...] as neededContinue medications and present care at 0269 at 1240 RPT #:[id number] OF REPORTPRProgress bklw7024-89-67Y45:29:00G.SALW44785501-2474ALUejtn able for patient axmqWKKPXDGQJWZASM2541-63-77X83:59:46 [facility] 2023-01-09 19:20:00 [id number] +lww3YROobBxHvWzClxxnsF7FA2GA 0LuuBHv3APtJcpK8NXJXxPvUbSn7314-85-09D55:20:00 [facility] ([facility])Infectious Dis. Progress NoteREPORT#:[id number] REPORT STATUS: SignedREPORT INITIALIZATION DATE:01/09/23 TIME: 1919 PATIENT: MATHEW CASTILLO UNIT #: [id number]#: [id number] [address] AGE: 62 SEX: M ATTEND: [...] him home on oral ciprofloxacin. at 0432 [facility] #:[id number] OF REPORTPRProgress cdsa1519-10-40F54:20:00G.SHDS21266888-7627CWXqqbn able for patient oxhbKUEUEQTYTXJJLZ5216-02-44R55:33:11 [facility] 2023-01-09 18:36:00 [id number] FuToJj0S1rBGV4BgMwaEJ1q6PsWms 6sJIIOn7c2CI3/w1ybFzfhr80hI9021-60-68O09:36:01521 5-0330 [place] [address] PATIENT NAME: MATHEW CASTILLO ADMIT DATE: 01/06/23ACCOUNT NO: [id number] ROOM NO: [facility]6 AGE: 62 REPORT TYPE: PROGRESS NOTE [...] was PATIENT NAME: MATHEW CASTILLO admitted to [place], and [facility] The patient was on admission, [...] MD Date Dictated: 01/09/2023 18:36:08Date Transcribed: 01/09/2023 20:19:12/[facility] Gckidjg ID: [id number] Authenticated and Edited by Skip Jaffe MD On 01/22/23 5:18:55 AM at 0520 PATIENT NAME: MATHEW CASTILLO nkiv8616-83-06N20:19:00G.FXA88787955-7166KVZcwyqb ble for patient cxtgRXZIVCRILEHYRD7895-24-82N44:21:54 [facility] 2023-01-09 11:30:00 [id number] KOhj0CdIO7o0tFg2+gw8U2kahWY6O NfXUNty56SCPiREA566Ymnq4Hai5288-13-47T84:30:00 [facility] ([facility])Urology Progress NoteREPORT#:[id number] REPORT STATUS: SignedREPORT INITIALIZATION DATE:01/09/23 TIME: 1129 PATIENT: MATHEW CASTILLO UNIT #: [id number]#: [id number] [address]: [address] AGE: 62 SEX: M ATTEND: Salinas Alba I MDABRADEN AUTHOR: Dave Jones MDREPT SERVICE DT/TIME: 01/09/23 [...] as planned in clinic at 1131 RPT #:[id number] OF REPORTPRProgress tavj3977-42-28V58:30:00G.CRHK30926351-2302UDGmunr able for patient obvuZJYBSXKPUXQLDK1065-55-22M98:32:06 [facility] 2023-01-08 21:19:00 Z47624199397vFbVJuNm yom/ZlmVBFipusHma/ir5pWzqpE5t mdsqLWgRkyzDOmkDsb7gsLndadj1798-61-97M99:19:00 [facility] Prog. NoteREPORT#:[id number] REPORT STATUS: SignedREPORT INITIALIZATION DATE:01/08/23 TIME: 2118 PATIENT: MATHEW CASTILLO UNIT #: [id number]#: [id number] [address] AGE: 62 SEX: M ATTEND: Salinas Alba [facility] AUTHOR: Sofia Cheng NPREPT SERVICE DT/TIME: 01/08/232118* ALL edits or amendments must be made on the electronic/computer document * SubjectiveChief complaint:HematuriaHPI:62-year-old male with last medical history of, BPH, s/p bladder lift yesterday by Dr. Jones transferred from [place] for urology evaluation secondary tohematuria after bladder [...] MLSodium Chloride (SODIUM CHLORIDE 0.9%) 1,000 ML .[id number] IV Sodium Chloride (SODIUM CHLORIDE 0.9%) 1,000 [...] % (Auto) (14.0 - 32.0 %) 22.3 [place] % (Auto) (4.8 - 9.0 %) 6.9 Eos % (Auto) (0.3 - 3.7 %) 9.9 H Baso % (Auto) (0.0 - 2.0 %) 0.9 Neut # (Auto) (2.0 - 7.6 x10 3/uL) 3.89 Lymph # (Auto) (1.0 - 3.8 x10 3/uL) 1.46 [place] # (Auto) (0.1 - 0.8 x10 3/uL) [...] range of motion, normal sensory, normal motor functionNeuro/SEED YEAST OPERATOR: alert, oriented X 3Skin: dry, intact, no gross abnormalitiesPsychiatry: no hallucinations, normal affect, normal judgment/insight, normal mood, not homicidal, not suicidal Free Text DxA P NotesFree text DxA P notes:Assessment:62-year-old male with last medical history of, BPH, s/p bladder lift yesterday by Dr. Jones transferred from [place] for urology evaluation secondary tohematuria after bladder [...] electrolytesRepeat labsFurther recommendation based on patient's clinical bijerf4301/06/2023Vital signs within normal limitsBlood culture shows Enterococcus [...] present care at 2359 at 1240 RPT #:[id number] OF REPORTPRProgress ynvl2599-92-00J83:19:00G.RPZV97757602-4018NIMdzfm able for patient uwzuJQPAXRKOPFUYJF1501-96-50T59:59:46 [facility] 2023-01-08 18:59:00 [id number] 1Z+ed1NRHEr0T+QBu/a120quefZUH tyMhQbVqbjr2knqE9YbW/M5QCA96076-20-78S97:59:00 [facility] ([facility])Infectious Dis. Progress NoteREPORT#:[id number] REPORT STATUS: SignedREPORT INITIALIZATION DATE:01/08/23 TIME: 1858 PATIENT: MATHEW CASTILLO UNIT #: [id number]#: [id number] [address] AGE: 62 SEX: M ATTEND: [...] home on oral ciprofloxacin. at 0321 RPT #:[id number] OF REPORTPRProgress rpnm5923-67-31A82:59:00G.DVNZ35676445-9691HTGmxmn able for patient fbduMTZBZVPCTYKGOD8996-78-61G76:21:51 [facility] 2023-01-08 18:22:00 [id number] JUsHO83drsm8VYeBZ41EoibdxwxEu /ppxtRjD7rn9hjtOgLPiF12djnu4698-16-51F49:22:79193 4-031 [place] [address] PATIENT NAME: MATHEW CASTILLO ADMIT DATE: 01/06/23ACCOUNT NO: [id number] ROOM NO: [facility] AGE: 62 REPORT TYPE: PROGRESS NOTE SEX: [...] 205,000. Serum sodium is 138, potassium 4.0, bxdwugad504, bicarbonate 26, glucose 91, BUN 14, creatinine 0.8, estimated GFR is 99.calcium is 7.8, blood culture 1 out of 2 has shown growth of Enterococcusfaecalis, which is pansensitive. Another blood culture so far is negative at 72hours of incubation. Urine culture has shown growth of Pseudomonas uourbjjzgx12,000 to 50,000 colony forming units. Currently, the [...] Dictated: 01/08/2023 18:22:31Date Transcribed: 01/08/2023 19:55:35/Trina #: [id number] ID: [id number] Authenticated and Edited by Skip Jaffe MD On 01/22/23 5:18:46 AM at 0520 PATIENT NAME: MATHEW CASTILLO rtfx5286-15-56K65:55:00G.VDG32513376-8944SBZbltcd ble for patient vsbfBXWFCKFGEFIGCQ5109-82-81E40:21:54 [facility] 2023-01-08 17:58:00 [id number] v+Blxs7ahGG+bn/130TO6IF4N+hQy FqyGd6EvX3CXs3Xx+i8Q+HX4qEE8227-38-87O25:58:00 [facility] ([facility])Urology Progress NoteREPORT#:[id number] REPORT STATUS: SignedREPORT INITIALIZATION DATE:01/08/23 TIME: 1758 PATIENT: MATHEW CASTILLO UNIT #: [id number]#: [id number] [address] AGE: 62 SEX: M ATTEND: [...] Temp 36.7 01/09 1656 Pulse 77 01/08 165 Resp 14 01/08 165 24 hour I [...] % (Auto) (14.0 - 32.0 %) 22.3 [place] % (Auto) (4.8 - 9.0 %) 6.9 Eos % (Auto) (0.3 - 3.7 %) 9.9 H Baso % (Auto) (0.0 - 2.0 %) 0.9 Neut # (Auto) (2.0 - 7.6 x10 3/uL) 3.89 Lymph # (Auto) (1.0 - 3.8 x10 3/uL) 1.46 [place] # (Auto) (0.1 - 0.8 x10 3/uL) [...] improved - discharge with black tomorrow at 7607 RPT #:[id number] OF REPORTPRProgress vcjy9951-57-47R46:58:00G.TAZH15280092-4525YTWcubd able for patient jsznIURKBONJEESONJ6116-21-23N42:00:52 [facility] 2023-01-08 02:42:00 [id number]/h/v FKJnOY2H2CfwmimveW9+Dmu+ff7uq RQjpdtUiMBa+0FBMp5T/A2zugbh9398-29-93I31:42:00 [facility] ([facility])Infectious Dis. Progress NoteREPORT#:[id number] REPORT STATUS: SignedREPORT INITIALIZATION DATE:01/08/23 TIME: 024 PATIENT: MATHEW CASTILLO UNIT #: [id number]#: [id number] [address] AGE: 62 SEX: M ATTEND: [...] surgery on January 03, [address] Reinlado Jones. Recurrent fever and leukocytosis improved. Rule [...] patient on IV Zosyn. at 0353 RPT #:[id number] OF REPORTPRProgress pnrg9579-74-62O26:42:00G.QPWP89924261-8909YVUxjtr able for patient moqvUHBVEJNRXNQSRL6390-45-98K03:54:17 [facility] 2023-01-07 21:05:00 [id number] Q+OhDO2C1N5PtZCy5urNBd2ErTNnV kBUhWKtxL1dpShBpPqC1fvc5+6D7841-96-87T77:05:00 [facility] ([facility])Internal Medicine Prog. NoteREPORT#:[id number] REPORT STATUS: SignedREPORT INITIALIZATION DATE:01/07/23 TIME: 2104 PATIENT: MATHEW CASTILLO UNIT #: [id number]#: [id number] [address] AGE: 62 SEX: M ATTEND: Salinas Alba AUTHOR: Sofia Cheng NPREPT SERVICE DT/TIME: 01/07/232104* ALL edits or amendments must be made on the electronic/computer document * SubjectiveChief complaint:HematuriaHPI:62-year-old male with last medical history of, BPH, s/p bladder lift yesterday by Dr. Jones transferred from [place] for urology evaluation secondary tohematuria after bladder [...] MLSodium Chloride (SODIUM CHLORIDE 0.9%) 1,000 ML .[id number] IV Sodium Chloride (SODIUM CHLORIDE 0.9%) 1,000 [...] % (Auto) (14.0 - 32.0 %) 21.2 [place] % (Auto) (4.8 - 9.0 %) 7.2 Eos % (Auto) (0.3 - 3.7 %) 10.4 H Baso % (Auto) (0.0 - 2.0 %) 0.8 Neut # (Auto) (2.0 - 7.6 x10 3/uL) 3.56 Lymph # (Auto) (1.0 - 3.8 x10 3/uL) 1.26 [place] # (Auto) (0.1 - 0.8 x10 3/uL) [...] range of motion, normal sensory, normal motor functionNeuro/SEED YEAST OPERATOR: alert, oriented X 3Skin: dry, intact, no gross abnormalitiesPsychiatry: no hallucinations, normal affect, normal judgment/insight, normal mood, not homicidal, not suicidal Free Text DxA P NotesFree text DxA P notes:Assessment:62-year-old male with last medical history of, BPH, s/p bladder lift yesterday by Dr. Jones transferred from [place] for urology evaluation secondary tohematuria after bladder [...] electrolytesRepeat labsFurther recommendation based on patient's clinical mrynzu5501/06/2023Vital signs within normal limitsBlood culture shows Enterococcus [...] present care at 2222 at 0742 RPT #:[id number] OF REPORTPRProgress dayu8164-99-50U11:05:00G.XOCR33026994-0470FWHtvdc able for patient nemdIERHVINRSBSTAD0882-70-29D73:22:45 [facility] 2023-01-07 16:17:00 K11334882865+EmuC15h QhB92cZksK5iRjtVwF0Gi8/Rh0T6T xTSrJh++i93JBd0l2Z9873codnW7923-01-83H69:17:00 [facility] Progress NoteREPORT#:[id number] REPORT STATUS: SignedREPORT INITIALIZATION DATE:01/07/23 TIME: 1616 PATIENT: MATHEW CASTILLO UNIT #: [id number]#: [id number] [address] AGE: 62 SEX: M ATTEND: Salinas Alba I [facility] AUTHOR: Dave Jones MDREPT SERVICE [...] - discharge with black tomorrow at 1617 [facility] #:[id number] OF REPORTPRProgress exkh1572-51-99E64:17:00G.KLQE87945562-5509VXKkrzj able for patient bncjYTHJIZPUUZTZBF1865-09-33H64:18:01 [facility] 2023-01-07 05:20:00 [id number] YHbca7RiM3uo2Z8KGTUxgM2O8tCOV QkPlOOdOMSGqmHKsDG8NXDdRbUb8612-95-86P58:20:95064 3-0041 [place] [address] PATIENT NAME: MATHEW CASTILLO ADMIT DATE: 01/06/23ACCOUNT NO: [id number] ROOM NO: [facility] AGE: 62 REPORT TYPE: PROGRESS NOTE SEX: [...] 01/07/2023 05:20:31Date Transcribed: 01/07/2023 05:56:47 DORADO/Nicole #: [id number] ID: [id number] Authenticated and Edited by Skip Jaffe MD On 01/22/23 5:18:20 AM at 0520 PATIENT NAME: MATHEW CASTILLO opyj5518-52-40E05:56:00G.RRI37291066-1760KOMudrfa ble for patient cwxaAFVQEIOXVRWWAR2727-61-22T65:21:33 [facility] 2023-01-06 21:39:00 [id number]/Dl9a5D vQXq1P2z93pTLYGijMj1uO4L+HZ27 np7s9Q45gFW6XR9VNM6Bbed1Grv7236-72-19M90:39:00 [facility] Prog. NoteREPORT#:[id number] REPORT STATUS: SignedREPORT INITIALIZATION DATE:01/06/23 TIME: 2138 PATIENT: MATHEW CASTILLO UNIT #: [id number]#: [id number] [facility] AGE: 62 SEX: M ATTEND: Salinas Alba AUTHOR: Sofia Cheng NPREPT SERVICE DT/TIME: 01/06/232138* ALL edits or amendments must be made on the electronic/computer document * SubjectiveChief complaint:HematuriaHPI:62-year-old male with last medical history of, BPH, s/p bladder lift yesterday by Dr. Jones transferred from [place] for urology evaluation secondary tohematuria after bladder [...] MLSodium Chloride (SODIUM CHLORIDE 0.9%) 1,000 ML .Y96T00K IV Sodium Chloride (SODIUM CHLORIDE 0.9%) 1,000 [...] (Auto) (14.0 - 32.0 %) 11.8 L [place] % (Auto) (4.8 - 9.0 %) 7.5 Eos % (Auto) (0.3 - 3.7 %) 3.2 Baso % (Auto) (0.0 - 2.0 %) 0.4 Neut # (Auto) (2.0 - 7.6 x10 3/uL) 7.43 Lymph # (Auto) (1.0 - 3.8 x10 3/uL) 1.14 [place] # (Auto) (0.1 - 0.8 x10 3/uL) [...] range of motion, normal sensory, normal motor functionNeuro/SEED YEAST OPERATOR: alert, oriented X 3Skin: dry, intact, no gross abnormalitiesPsychiatry: no hallucinations, normal affect, normal judgment/insight, normal mood, not homicidal, not suicidal Free Text DxA P NotesFree text DxA P notes:Assessment:62-year-old male with last medical history of, BPH, s/p bladder lift yesterday by Dr. Jones transferred from [place] for urology evaluation secondary tohematuria after bladder [...] electrolytesRepeat labsFurther recommendation based on patient's clinical nekxbp1701/06/2023Vital signs within normal limitsBlood culture shows Enterococcus speciesUrine culture grows gram-negative teodoro-identification and sensitivity pendingHematuria is improved.Wean CBI as tolerated per uroContinue IV antibiotics Zosyn per ID, ceftriaxone is discontinuedStarted on Cogentin, still on tamsulosin.Monitor for further bleedingPain medications as neededFollow-up cultures, labs, continue medications and supportive care at 0015 at 0740 RPT #:[id number] OF REPORTPRProgress vbky5719-54-13Q57:39:00G.MJHM85911449-2401ASJouky able for patient oonxJFZUBOLOWDACER2140-06-11U26:16:29 [facility] 2023-01-06 19:39:00 [id number] oXShC8i4JbawPL6019ou99IsB28Ip PQ/I+dIDxivA2uQ7WXfz+6I8Re75451-02-85L05:39:00 [facility] ([facility])Urology Progress NoteREPORT#:[id number] REPORT STATUS: SignedREPORT INITIALIZATION DATE:01/06/23 TIME: 1938 PATIENT: MATHEW CASTILLO UNIT #: [id number]#: [id number] [address] AGE: 62 SEX: M ATTEND: [...] (Auto) (14.0 - 32.0 %) 11.8 L [place] % (Auto) (4.8 - 9.0 %) 7.5 Eos % (Auto) (0.3 - 3.7 %) 3.2 Baso % (Auto) (0.0 - 2.0 %) 0.4 Neut # (Auto) (2.0 - 7.6 x10 3/uL) 7.43 Lymph # (Auto) (1.0 - 3.8 x10 3/uL) 1.14 [place] # (Auto) (0.1 - 0.8 x10 3/uL) [...] wean cbi as tolerated at 1941 RPT #:[id number] OF REPORTPRProgress xpro0777-54-59H90:39:00G.TMWM68438207-8751KZRcdzi able for patient zyfoAKIRLTAONUPLNB5345-20-31F73:41:57 [facility] 2023-01-06 19:19:00 H83488474439kq6Mm1ZY fbqvPP6WQ9tIBtEsoAimwBaYuUIwM XOyYWe3Iu4FLehEMkduhi+zVLFo1943-40-65R34:19:00 [facility] ([facility])Infectious Dis. Progress NoteREPORT#:[id number] REPORT STATUS: SignedREPORT INITIALIZATION DATE:01/06/23 TIME: 1918 PATIENT: MATHEW CASTILLO SINCERE UNIT #: [id number]#: [id number] [facility] AGE: 62 SEX: M ATTEND: Salinas [...] possibility. U[place] [address] colony-forming units of the Gram-negative rods. Identification and susceptibility is pending. Keep the patient on IV Zosyn. at 0411 RPT #:[id number] OF REPORTPRProgress juyw7874-41-81C28:19:00G.WCAF88074776-0103YRYgzws able for patient lxvbVPMTLWZYNEVUJF5016-56-91G64:11:25 [facility] 2023-01-06 17:40:00 [id number] 84RsikqaCIFEBs0+sn9ixbeLXOPk5 x+pWgsKY4hplcxTPOGkYWpeZHrF2516-37-73P16:40:68028 2-[address] [address] PATIENT NAME: MATHEW CASTILLO ADMIT DATE: 01/06/23ACCOUNT NO: [id number] ROOM NO: GC146 AGE: 62 REPORT TYPE: CONSULTATION REPORT SEX: M ADMITTING PHYSICIAN:Salinas Alba MD ATTENDING PHYSICIAN:Salinas Alba MD CONSULTATION DATE: 01/05/2023 INFECTIOUS DISEASE CONSULTATION The patient examined, chart reviewed, old records reviewed. Thank you, Dr. Michael, for asking me to evaluate Mr. Mathew Castillo. HISTORY OF PRESENT ILLNESS: Mr. Castillo is known to me from his recent hospitalization at [facility] in 10/2022. He is a 62-year-old male with a past medical history of schizophrenia, benign prostatic hypertrophy with recurrent urinary symptomatology, history of previous episode of urinary retention due to bladder neck obstruction requiring indwelling Black catheter placement and hospitalization in October of 2022. The patient lives in [place] and he had an outpatient prostate procedure done by Dr. Dave Jones with [facility] on Friday01/03/2023 and was discharged home on the same day. The patient went back to [place]. However, subsequently, he started to notice ladan hematuria on Friday and had no other constitutional symptoms including fever or chills. The patient because of worsening hematuria decided to go to the hospital. He went to hospital in [place] and he was told to follow up with the urologist and he was transferred to the [facility]. The patient at present is hemodynamically [...] is single. He lives with his daughterjailene [place]. The patient has been a longtime smoker and continues to smoke. No history of IV drug use, alcohol use, or substance abuse. 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 On admission, [place] [address]. The patient had 2 blood cultures done. Urine culture is incubating. ASSESSMENT: The patient with multiple comorbidities including history of benignprostatic hypertrophy with previous episode of urinary retention requiring indwelling Black catheter placement has undergone an UroLift procedure on 01/03/2023, and subsequently was discharged on the same day; however, yesterday he started to have hematuria and was seen at a hospital in [facility] and is transferred to [facility] for further Urology evaluation. 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 tube winder today, and he is empirically started on [...] Dictated: 01/06/2023 17:40:46Date Transcribed: 01/06/2023 21:28:36ESTRADA/Concepcion #: [id number] ID: [id number] by Skip Jaffe MD On 01/22/2023 05:17:37 AM at 0517 PATIENT NAME: MATHEW CASTILLO SINCERE :28:00G.CA [id number] for patient znsrFUMFLUIHTMPIUS2703-98-34A02:18:03 [facility] 2023-01-05 23:00:00 [id number] hnEjCJeimnEDx5A3FZhSbkrQPpGsG 2poTOR8gGFIAVQpTH+A7K/QVld26581-91-57M47:00:00 [facility] ([facility])Infect Disease Consult NoteREPORT#:[id number] REPORT STATUS: SignedREPORT INITIALIZATION DATE:01/05/23 TIME: 2300 PATIENT: MATHEW CASTILLO UNIT #: [id number]#: [id number] [facility] AGE: 62 SEX: M ATTEND: [place]ba AUTHOR: Skip Jaffe MDREPT SERVICE DT/TIME: 01/05/23 2300* ALL edits or amendments must be made on the electronic/computer document * History of Present IllnessHPI:Thank you for the consultation. Patient's current and old record reviewed. Orders initiated. See full dictated consultation report for further details. Patient is known to our service from his recent hospitalization at [facility] in October of 2022. ASSESSMENT AND [...] Allergies:No Known Allergies (10/16/22) at 0526 RPT #:[id number] OF REPORTFTYsjxcthujswp3387-13-47K61:00:00G.PDOC2 [id number] for patient suhdGOTEGSLSETLGTS6332-24-61K42:27:03 [facility] 2023-01-05 13:05:00 [id number] rQKoInVnjt0yBXMx55TE/ON4wO8QV 2Z6nSzoSo9C511AvlAEd2I2FSdE8330-91-77E24:05:00 [facility] ([facility])Urology Consult NoteREPORT#:[id number] REPORT STATUS: SignedREPORT INITIALIZATION DATE:01/05/23 TIME: 1305 PATIENT: MATHEW CASTILLO UNIT #: [id number]#: [id number] [facility] AGE: 62 SEX: M ATTEND: [place] [...] (Auto) (14.0 - 32.0 %) 4.5 L [place] % (Auto) (4.8 - 9.0 %) 6.1 Eos % (Auto) (0.3 - 3.7 %) 0.3 Baso % (Auto) (0.0 - 2.0 %) 0.2 Neut # (Auto) (2.0 - 7.6 x10 3/uL) 15.99 H Lymph # (Auto) (1.0 - 3.8 x10 3/uL) 0.82 L [place] # (Auto) (0.1 - 0.8 x10 3/uL) [...] (Auto) (14.0 - 32.0 %) 5.4 L [place] % (Auto) (4.8 - 9.0 %) 5.3 Eos % (Auto) (0.3 - 3.7 %) 0.0 L Baso % (Auto) (0.0 - 2.0 %) 0.2 Neut # (Auto) (2.0 - 7.6 x10 3/uL) 14.77 H Lymph # (Auto) (1.0 - 3.8 x10 3/uL) 0.90 L [place] # (Auto) (0.1 - 0.8 x10 3/uL) [...] pH (5.0 - 7.0) 7.0 Ur Specific [place] (1.005 - 1.030) 1.005 Urine Protein (NEGATIVE) [...] Alberts MD[facility] at 1312 RPT #:[id number] OF REPORTHCZgiaoiityvsr6461-27-62X40:05:00G.PDOC2 7355944-0770HPUqisxvqky for patient nthaXCFZIUZFKTOSZG4874-46-26S69:12:53 [facility] 2023-01-05 11:34:00 [id number]/t4gGg 56TdCRAbDjbfe5nBegkqJMkXPzDN8 vmnk+6xrfgofkXhXcTnioCYj7Nk6723-08-72C33:34:00 [facility] ([facility])History Physical - AdultREPORT#:[id number] REPORT STATUS: SignedREPORT INITIALIZATION DATE:01/05/23 TIME: 1133 PATIENT: MATHEW CASTILLO UNIT #: [id number]#: [id number] [address] AGE: 62 SEX: M ATTEND: Salinas Alba AUTHOR: Sofia Cheng NPREPT SERVICE DT/TIME: 01/05/23 1134* ALL edits or amendments must be made on the electronic/computer document * History of Present Illness HPIChief complaint:HematuriaHPI:62-year-old male with last medical history of, BPH, s/p bladder lift yesterday by Dr. Jones transferred from [place] for urology evaluation secondary tohematuria after bladder [...] range of motion, normal sensory, normal motor functionNeuro/SEED YEAST OPERATOR: alert, oriented X 3Skin: dry, intact, no [...] (Auto) (14.0 - 32.0 %) 4.5 L [place] % (Auto) (4.8 - 9.0 %) 6.1 Eos % (Auto) (0.3 - 3.7 %) 0.3 Baso % (Auto) (0.0 - 2.0 %) 0.2 Neut # (Auto) (2.0 - 7.6 x10 3/uL) 15.99 H Lymph # (Auto) (1.0 - 3.8 x10 3/uL) 0.82 L [place] # (Auto) (0.1 - 0.8 x10 3/uL) [...] x10 3/uL) 0.00 01/04 01/04 01/04 2205 2143 2000 Chemistry Sodium (134 - 147 mEq/L) [...] (Auto) (14.0 - 32.0 %) 5.4 L [place] % (Auto) (4.8 - 9.0 %) 5.3 Eos % (Auto) (0.3 - 3.7 %) 0.0 L Baso % (Auto) (0.0 - 2.0 %) 0.2 Neut # (Auto) (2.0 - 7.6 x10 3/uL) 14.77 H Lymph # (Auto) (1.0 - 3.8 x10 3/uL) 0.90 L [place] # (Auto) (0.1 - 0.8 x10 3/uL) [...] pH (5.0 - 7.0) 7.0 Ur Specific [place] (1.005 - 1.030) 1.005 Urine Protein (NEGATIVE) [...] SCAN - CT ABD PELVIS W/CONT 01/04 37 Report Impression - Status: SIGNED Entered: 01/04/2023 8601 IMPRESSION: 1. Prostatomegaly. Decompressed bladder with a Black in place.2. No hydronephrosis. No enhancing renal masses.3. Cholelithiasis and mildly distended gallbladder.4. Moderate hiatal hernia.Impression By: Nick Magaña M.D. Diagnosis, Assessment Plan Free Text DxA P NotesFree Text DxA P Notes:Assessment:62-year-old male with last medical history of, BPH, s/p bladder lift yesterday by Dr. Jones transferred from [place] for urology evaluation secondary tohematuria after bladder [...] clinical course at 0055 at 0739 RPT #:[id number] OF REPORTHPHistory and physical zycvepptves5483-05-18U84:34:00G.ZRPZ95098455-2581 AVAvailable for patient dmgoTXJQOTZAAKGPMZ7384-99-26H92:55:31 [facility] 2023-01-05 01:59:00 [id number]/mC0qTsO J43CHyQEzD5hX3ys+Q+33a4AY86vt P5yESnpfbW1AXN2xXRCqWMNsJvU3998-95-46Q78:59:00 [facility] ([facility])Clinical NoteREPORT#:[id number] REPORT STATUS: SignedREPORT INITIALIZATION DATE:01/05/23 TIME: 0159 PATIENT: MATHEW CASTILLO UNIT #: [id number]#: [id number] [address]D: [birth year] AGE: 62 SEX: M ATTEND: Salinas Alba AUTHOR: Sofia Cheng NPREPT SERVICE DT/TIME: 01/05/23 0159* ALL edits or amendments must be made on the electronic/computer document * Clinical NoteNote:Clinical data reviewedOrders placed at 0222 RPT #:[id number] OF REPORTCLClinical oysz3752-56-50C56:59:00G.VGFJ54149564-0646LRXegqj able for patient fjobJAGSRKAAKIPWMB0739-44-17S34:22:53 [facility] 2023-01-04 20:02:00 P10853843717g+5KrlUg 8x0xcmPgT6WqUimdfmvGwqIZPMwj7 cdSZ4q1IS6m7O8sOiz1uaApv5/w9328-72-10K84:02:00 [facility] ([facility])EMERGENCY PROVIDER REPORTREPORT#:[id number] REPORT STATUS: SignedDATE:01/04/23 TIME: 2001 PATIENT: MATHEW CASTILLO UNIT #: [id number]#: [id number] [address]OUM: 62 SEX: M PCP PHYS: Lakhwinder Guillermo [...] SOB. 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 [...] Independ review imaging, Reviewed prior recordsResultsLaboratory Tests 01/04/23 2001:[Embedded Image Not Available]Laboratory Tests: 01/04 01/04 01/04 9155 2147 2000 Chemistry Sodium (134 - 147 mEq/L) [...] (Auto) (14.0 - 32.0 %) 5.4 L [place] % (Auto) (4.8 - 9.0 %) 5.3 Eos % (Auto) (0.3 - 3.7 %) 0.0 L Baso % (Auto) (0.0 - 2.0 %) 0.2 Neut # (Auto) (2.0 - 7.6 x10 3/uL) 14.77 H Lymph # (Auto) (1.0 - 3.8 x10 3/uL) 0.90 L [place] # (Auto) (0.1 - 0.8 x10 3/uL) [...] pH (5.0 - 7.0) 7.0 Ur Specific [place] (1.005 - 1.030) 1.005 Urine Protein (NEGATIVE) [...] indwelling black cath s/p urolift 1 day 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 Tachycardic [...] DecisionHospitalize Hosp Physician Name Salinas Alba MD [facility] Physician Hospitalist Request Time 34 Request [...] MidLv Saw Pt AloneI have reviewed the PA/CLINICAL TECH's note and plan of care. I was available for consultation as needed at all times during the patient's visit in the emergency department. I agree with the clinical impression, plan and disposition. at 2148 at 0552RPT #:[id number] OF REPORTHouston [facility] department qnnqxu7504-62-26A82:02:00G.EEUX93517528-3964KXXok ilable for patient ezfrXPJDXUDDEKBNGR2154-88-41T10:48:19 [facility] 2022-11-19 18:14:00 [id number]/HZ a9/C5aT4QyBZ6ExCCykQDcg6nS0Cg DGj+Ugg9H8U7txKbVpd5IuxkACY9648-60-95W40:14:00 [facility] ([facility])Discharge SummaryREPORT#:[id number] REPORT STATUS: SignedDATE:11/19/22 TIME: 1813 PATIENT: MATHEW CASTILLO UNIT #: [id number]#: [id number] [address] AGE: 62 SEX: M [...] last medical history of, BPH, transferred from [place] for urology evaluation and treatment secondary to [...] range of motion, normal sensory, normal motor functionNeuro/SEED YEAST OPERATOR: alert, oriented X 3Skin: dry, intact, no [...] Care Discharge InstructionsAdditional Discharge Routines: PCP Follow-Up, 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)( Diet: Regular Follow-up AppointmentsPCP follow up: PCP: Yumiko Geller MD PCP follow up timeframe: In 5 days Special instructions:CAN FU WITH OWN PCPAttending Physician: Attending Physician: Salinas Alba MD Attending physician follow up timeframe: In 1-2 weeks Special instructions:CALL TO SCHEDULE AN APPOINTMENTConsulting provider 1: Provider 1: Dave Jones MD Specialty: Urology Special instructions:FOR REMOVAL OF BLACK at [address] [facility] #:[id number] OF REPORTDSDischarge yukutjx5575-53-18V02:14:00G.SAEK46095940-1527MVLb ailable for patient ziwmTAQQHUMUBJSCRH8989-37-34H05:32:51 [facility] 2022-10-26 20:52:00 [id number] aoXbrOo+EnndJQNmPtDOQuMp+1/fm 40C5T3NhbytCD3Rhg3GLrNEvSOX8966-24-30M23:52:24896 2-[address] [place], [place] [address] PATIENT NAME: MATHEW CASTILLO ADMIT DATE: 10/16/22ACCOUNT NO: [id number] ROOM NO: [facility] AGE: 62 [...] Emergency Room where he was transferred from [place] with acuteurinary retention. He had 3 liters [...] Dictated: 10/26/2022 20:52:41Date Transcribed: 10/26/2022 21:14:58HA/JORGE/Marine #: [id number] ID: [id number] Authenticated and Edited by Skip Jaffe MD On 11/02/22 2:24:00 AM at 0323 PATIENT NAME: MATHEW CASTILLO jxhw2427-92-31U38:14:00G.OQL19477993-4565PIXbkdqt ble for patient kkjnEMOTYSYLZRRPTH6526-86-81J97:24:01 [facility] 2022-10-26 19:14:00 [id number] ncDbbPtsVALIOfkJmVlG8Mw0KNveQ 0A1MrwFgIUSXKhzPJ5mIzAI7fE82798-15-13P67:14:00 [facility])Internal Medicine Prog. NoteREPORT#:[id number] REPORT STATUS: SignedDATE:10/26/22 TIME: 1913 PATIENT: MATHEW CASTILLO UNIT #: [id number]#: [id number] [address] [birth year] AGE: 62 SEX: M ATTEND: Salinas Alba I [facility] AUTHOR: Sofia Cheng CLINICAL TECH * ALL edits or amendments must be made on the electronic/computer document * SubjectiveChief complaint:Abdominal distention, hydronephrosisHPI:62-year-old male with last medical history of, BPH, transferred from [place] for urology evaluation and treatment secondary to [...] range of motion, normal sensory, normal motor functionNeuro/SEED YEAST OPERATOR: alert, oriented X 3Skin: dry, intact, no gross abnormalitiesPsychiatry: no hallucinations, normal moodProblem List/A P: 1. Rupture of ureter Free Text DxA P NotesFree text DxA P notes:Assessment:62-year-old male with last medical history of, BPH, transferred from [place] for urology evaluation and treatment secondary to [...] neededRepeat labsFurther recommendation based on patient's clinical jjtxgp0910/17/2022Vital signs within normal limitsHypokalemia 3.2, hypomagnesemia 1.50Renal [...] controlFollow-up electrolytes and labs, continue medications and quzxrea4810/22/2022Vital signs within normal limits, POC glucose is [...] explained to patient's daughterContinue with current medicationsFall sbscevaris16/20/2023Stable, POC glucose 154Patient with Black to gravity, [...] supportive care at 2225 at 0830 RPT #:[id number] OF REPORTPRProgress xdgj0016-84-81R35:14:00G.BNZD68315724-6636IAQmeve able for patient nvqqDHZDHGBRAHMUFK2429-68-36H21:25:27 [facility] 2022-10-26 13:41:00 I421204189617qfhBmWR dXnpfgsoY3iq3VpZvJ6uzk0zQ3crw BXy89KBIgnTHLoo3qPT4jxf8P3x8316-23-70K48:41:00 [facility])Nephrology Progress NoteREPORT#:[id number] REPORT STATUS: SignedDATE:10/26/22 TIME: 134 PATIENT: MATHEW CASTILLO UNIT #: [id number]#: [id number] [address] [birth year] AGE: 62 SEX: M [...] 77 15 114/71 85.5 96 Room air 07/22 0450 37.1 74 17 125/79 94.2 96 [...] urine in his bladder. CT abdomen from [place] showed that the patient has a very [...] urine in his bladder. CT abdomen from [place] showed that the patient has a very [...] patient's nurse and Dr. Koehler. Toby Koehler 10/26/221811:Attestations Physician AttestationReviewed findings plan:Patient examined Renal function improved and wnl, black to gravity, -2/2 post-obstrucitve uropathy, replace electrolytes as needed, S/P antibioticscontinue flomax, Agree with above A/P at 1342 at 1813 RPT #:[id number] OF REPORTPRProgress dmyf0782-82-07Q37:41:00G.OZRA25921411-1357EWPlwff able for patient qsjlRURIJAOULZFISL5347-16-72Q84:42:46 [facility] 2022-10-25 21:28:00 [id number] 5+sCFzOyaeJ6N2GKJTWbtVG61i+y5 C4PICHZKruRBMjoDx93nb1rv1cQ9365-43-81Y92:28:00 [facility] ([facility])Infectious Dis. Progress NoteREPORT#:[id number] REPORT STATUS: SignedDATE:10/25/22 TIME: 2127 PATIENT: MATHEW CASTILLO UNIT #: [id number]#: [id number] ROOM/BED: 6630-1DOB: [birth year] AGE: 62 SEX: M ATTEND: Salinas Alba I [facility] AUTHOR: Skip Jaffe MD * [...] new nosocomial acquired infection. at 0256 RPT #:[id number] OF REPORTPRProgress jdpb7588-08-61V56:28:00G.PNVZ39478137-4628HCBwlfk able for patient baucYJUMXCQUNTRAXH5555-75-08L85:57:01 [facility] 2022-10-25 19:13:00 H74612095093E4IKpiWC 3w84qcsVirqSWJjTJQ98ez/nZAFaW zRjOXuq/lxofNZf03rIU7BMhoi13719-49-01P93:13:00 [facility] ([facility]ph[facility] Progress NoteREPORT#:[id number] REPORT STATUS: SignedDATE:10/25/22 TIME: 1912 PATIENT: MATHEW CASTILLO UNIT #: [id number]#: [id number] [address] [birth year] AGE: 62 SEX: M ATTEND: Salinas Alba I [facility] AUTHOR: Toby Koehler MD * [...] (Auto) (14.0 - 32.0 %) 10.6 L [place] % (Auto) (4.8 - 9.0 %) 4.4 L Eos % (Auto) (0.3 - 3.7 %) 2.4 Baso % (Auto) (0.0 - 2.0 %) 0.5 Neut # (Auto) (2.0 - 7.6 x10 3/uL) 12.30 H Lymph # (Auto) (1.0 - 3.8 x10 3/uL) 1.60 [place] # (Auto) (0.1 - 0.8 x10 3/uL) [...] urine in his bladder. CT abdomen from [place] showed that the patient has a very [...] urine in his bladder. CT abdomen from [place] showed that the patient has a very [...] abx per primary team. at 1914 RPT #:[id number] OF REPORTPRProgress onid2033-00-46X90:13:00G.YVTC73969525-9351MYDzfft able for patient xrchUKAWWGKTWAJGLW9275-29-86N75:14:52 [facility] 2022-10-25 19:12:00 [id number] jOR1Dvi/gUAdG45BGpmohvwnKg2JC vbpaW4mY1rk1Ko4tjh1MZymBhpQ9128-01-41E33:12:00 [facility] ([facility])Internal Medicine Prog. NoteREPORT#:[id number] REPORT STATUS: SignedDATE:10/25/22 TIME: 1911 PATIENT: MATHEW CASTILLO UNIT #: [id number]#: [id number] ROOM/BED: [facility]30-1DOB: [birth year] AGE: 62 SEX: M ATTEND: Salinas Alba I [facility] AUTHOR: Sofia Cheng NP * ALL edits or amendments must be made on the electronic/computer document * SubjectiveChief complaint:Abdominal distention, hydronephrosisHPI:62-year-old male with last medical history of, BPH, transferred from [place] for urology evaluation and treatment secondary to [...] 10/25 10/25 10/25 10/24 1634 1046 0739 4970 1951 Chemistry Sodium (134 - 147 mEq/L) [...] (Auto) (14.0 - 32.0 %) 10.6 L [place] % (Auto) (4.8 - 9.0 %) 4.4 L Eos % (Auto) (0.3 - 3.7 %) 2.4 Baso % (Auto) (0.0 - 2.0 %) 0.5 Neut # (Auto) (2.0 - 7.6 x10 3/uL) 12.30 H Lymph # (Auto) (1.0 - 3.8 x10 3/uL) 1.60 [place] # (Auto) (0.1 - 0.8 x10 3/uL) [...] range of motion, normal sensory, normal motor functionNeuro/SEED YEAST OPERATOR: alert, oriented X 3Skin: dry, intact, no gross abnormalitiesPsychiatry: no hallucinations, normal moodProblem List/A P: 1. Rupture of ureter Free Text DxA P NotesFree text DxA P notes:Assessment:62-year-old male with last medical history of, BPH, transferred from [place] for urology evaluation and treatment secondary to [...] neededRepeat labsFurther recommendation based on patient's clinical tuqwcr6610/17/2022Vital signs within normal limitsHypokalemia 3.2, hypomagnesemia 1.50Renal [...] controlFollow-up electrolytes and labs, continue medications and yqmibit4110/22/2022Vital signs within normal limits, POC glucose is [...] explained to patient's daughterContinue with current medicationsFall qzatkttfyq51/20/2023Stable, POC glucose 154Patient with Black to gravity, [...] supportive care at 2224 at 0830 RPT #:[id number] OF REPORTPRProgress ikrw7100-77-56G07:12:00G.DLRK31969945-1316MTKlfdk able for patient gkfgUEOIGUSWHZAFGD7018-21-06T65:24:26 [facility] 2022-10-25 10:44:00 [id number] qWQvzv5V4vxaNbJV5+eBOOt7c6pYh OQd3o+ZB/ZBEIE12Tz87Qm2VlQg6387-40-90T79:44:10173 1-[address]05 [place] [address] PATIENT NAME: MATHEW CASTILLO ADMIT DATE: 10/16/22ACCOUNT NO: [id number] ROOM NO: 6630 AGE: 62 REPORT TYPE: [...] admitted through Emergency Roominitially to hospital in [place] with urinary retention of 2 days' durationand was found to have some extravasation of urine in the peritoneal cavity. Thepatient was treated with IV antibiotics and had a Black catheter inserted andabout 3 liters of urine was drained and the Black was left in place and [facility]The patient was evaluated [...] Dictated: 10/25/2022 10:44:58Date Transcribed: 10/25/2022 11:24:45HA/Yulisa #: [id number] ID: [id number] Authenticated and Edited by Skip Jaffe MD On 11/02/22 2:23:50 AM at 0323 PATIENT NAME: MATHEW CASTILLO nqal9369-52-80F16:24:00G.QXZ16025817-1821KDZnljop ble for patient lbwrHSIXSOTHXOCPTO8212-79-16C14:24:12 [facility] 2022-10-24 22:59:00 [id number] sv7yjcM1VWUE8cymaV+N6cIUk2nOh 8Rmc2QO7A2vG3dkn968e9Bl+SFz1999-66-32C76:59:00 [facility])Internal Medicine Prog. NoteREPORT#:[id number] REPORT STATUS: SignedDATE:10/24/22 TIME: 2258 PATIENT: MATHEW CASTILLO UNIT #: [id number]#: [id number] [address] [birth year] AGE: 62 SEX: M ATTEND: Salinas Alba I [facility] AUTHOR: Sofia Cheng NP * ALL edits or amendments must be made on the electronic/computer document * SubjectiveChief complaint:Abdominal distention, hydronephrosisHPI:62-year-old male with last medical history of, BPH, transferred from [place] for urology evaluation and treatment secondary to [...] 11/15 1330 2228 Electrolytic, Caloric, And Scott Sig/Mrak Start time Last Medication Dose Route [...] range of motion, normal sensory, normal motor functionNeuro/SEED YEAST OPERATOR: alert, oriented X 3Skin: dry, intact, no gross abnormalitiesPsychiatry: no hallucinations, normal moodProblem List/A P: 1. Rupture of ureter Free Text DxA P NotesFree text DxA P notes:Assessment:62-year-old male with last medical history of, BPH, transferred from [place] for urology evaluation and treatment secondary to [...] neededRepeat labsFurther recommendation based on patient's clinical mxuies4910/17/2022Vital signs within normal limitsHypokalemia 3.2, hypomagnesemia 1.50Renal [...] controlFollow-up electrolytes and labs, continue medications and yahdyqc1910/22/2022Vital signs within normal limits, POC glucose is [...] explained to patient's daughterContinue with current medicationsFall uomjdgxjrn93/20/2023Stable, POC glucose 154Patient with Black to gravity, tolerating p.o. intakeNephro is following. On tamsulosin p.o.Continue pain control, glycemic control, fall precautionContinue medications and present care at 2223 at 0830 RPT #:[id number] OF REPORTPRProgress eawl8761-85-20B41:59:00G.CODC81099112-1062YLQpxwh able for patient tgizDGAZPFLOQNQECV3490-32-42I40:24:17 [facility] 2022-10-24 19:41:00 Y25273731176hXKawL6G fdEZ3WOf/7apuZY/SoKwuuWe43xBt Yn0HFVQMXq9RzzOCkbCyW8bV04S5978-23-47G00:41:00 [facility] ([facility])Infectious Dis. Progress NoteREPORT#:[id number] REPORT STATUS: SignedDATE:10/24/22 TIME: 1940 PATIENT: MATHEW CASTILLO UNIT #: [id number]#: [id number] ROOM/BED: 6630-1DOB: [birth year] AGE: 62 SEX: M ATTEND: Salinas Alba [facility] AUTHOR: Skip Jaffe MD * ALL edits [...] closely for any diarrhea. at 0316 RPT #:[id number] OF REPORTPRProgress kmha9371-24-48P38:41:00G.YUOU47148862-0099OCPpmcg able for patient yjwiEAOFXXOKNRAUXR1071-48-81N07:16:37 [facility] 2022-10-24 19:12:00 [id number] 0y4JHC569IoVkVhj0+nSXnzIFjnKL MIolg8escNlXYs9FXRxDx1yRaQm2522-41-69O06:12:55774 0-[address] [place], [place] [address] PATIENT NAME: MATHEW CASTILLO ADMIT DATE: 10/16/22ACCOUNT NO: [id number] ROOM NO: [facility]30 AGE: 62 REPORT TYPE: [...] sodium is 138, potassium 3.8, chloride 107, xzbgzfmdwju81, glucose 98. BUN 11, creatinine 1.0, estimated [...] medical problems was initiallyadmitted to hospital in [place] where he had presented with urinaryretention. The patient was found to have 3 liters of urine in the bladder. Hehad a Black catheter inserted and subsequently was transferred to [facility] for urology evaluation. He was initially treated [...] Dictated: 10/24/2022 19:12:07Date Transcribed: 10/24/2022 19:51:44HA/Concepcion #: [id number] ID: [id number] Authenticated and Edited by Skip Jaffe MD On 11/02/22 2:23:34 AM at 0323 PATIENT NAME: MATHEW CASTILLO qfrh4071-61-96A19:51:00G.NYO78408538-3285ZAUqmzxt ble for patient juimCPARKMQDJLTKPO0505-78-96L56:24:12 [facility] 2022-10-24 16:08:00 [id number] nDNE5TFTC5TbhQ/sMaFTNPE/[place]/s f3STW/cagKd7sqCuCEUMCuZS0Z86545-72-94E44:08:00 [facility] ([facility])Nephrology Progress NoteREPORT#:[id number] REPORT STATUS: SignedDATE:10/24/22 TIME: 160 PATIENT: MATHEW CASTILLO UNIT #: [id number]#: [id number] [address] [birth year] AGE: 62 SEX: M ATTEND: Salinas Alba I [facility] AUTHOR: Carmen Kemp * ALL [...] urine in his bladder. CT abdomen from [place] showed that the patient has a very [...] urine in his bladder. CT abdomen from [place] showed that the patient has a very [...] above A/P at 1740 at 2124 RPT #:[id number] OF REPORTPRProgress yjtc4754-99-51M68:08:00G.KAGF13727768-6922UYZpplv able for patient qmlmNCEZQYQAHKJCVH2629-86-86L64:40:54 [facility] 2022-10-23 21:33:00 [id number] aeA1Dw3Lf4qkMTUvWVJcILRSbhAZg 7ZDImqtx7YLdpBonXq4qhGaHVNj0613-35-32V67:33:00 [facility] Prog. NoteREPORT#:[id number] REPORT STATUS: SignedDATE:10/23/22 TIME: 2132 PATIENT: MATHEW CASTILLO UNIT #: [id number]#: [id number] [address] [birth year] AGE: 62 SEX: M ATTEND: Salinas Alba I [facility] AUTHOR: Sofia Cheng NP * ALL edits or amendments must be made on the electronic/computer document * SubjectiveChief complaint:Abdominal distention, hydronephrosisHPI:62-year-old male with last medical history of, BPH, transferred from [place] for urology evaluation and treatment secondary to [...] range of motion, normal sensory, normal motor functionNeuro/SEED YEAST OPERATOR: alert, oriented X 3Skin: dry, intact, no gross abnormalitiesPsychiatry: no hallucinations, normal moodProblem List/A P: 1. Rupture of ureter Free Text DxA P NotesFree text DxA P notes:Assessment:62-year-old male with last medical history of, BPH, transferred from [place] for urology evaluation and treatment secondary to [...] neededRepeat labsFurther recommendation based on patient's clinical hzpzdz5710/17/2022Vital signs within normal limitsHypokalemia 3.2, hypomagnesemia 1.50Renal [...] controlFollow-up electrolytes and labs, continue medications and khlgvgt2910/22/2022Vital signs within normal limits, POC glucose is [...] medicationsFall precaution at 0250 at 0842 RPT #:[id number] OF REPORTPRProgress gxrv1555-65-24C46:33:00G.[id number] able for patient dpqmJVJTIVCTOFYLKT5535-22-51G91:51:16 [facility] 2022-10-23 18:51:00 [id number] rFxrR4F30wLKY6xEtLNWIpn8u/gJ1 XiTopdxaXbkMY4nZ6hjdtTmhQET7369-50-04T95:51:00 [facility] ([facility])Infectious Dis. Progress NoteREPORT#:[id number] REPORT STATUS: SignedDATE:10/23/22 TIME: 1850 PATIENT: MATHEW CASTILLO UNIT #: [id number]#: [id number] [address]DOB: [birth year] AGE: 62 SEX: M ATTEND: [...] closely for any diarrhea. at 0256 RPT #:[id number] OF REPORTPRProgress vats4465-26-94K22:51:00G.LATO50618509-5787QGDmybq able for patient ezqlHYGBOIIECVVAQD0578-73-82V23:56:58 [facility] 2022-10-23 18:27:00 [id number] ohxX4GAMsMjEhpD0RPIlY0d2aWdKr +UTADOeRMf9ihZoZIN42+hf8N+q0060-57-96A82:27:08396 9-[address] [place] [address] PATIENT NAME: MATHEW CASTILLO ADMIT DATE: 10/16/22ACCOUNT NO: [id number] ROOM NO: G.6630 AGE: 62 REPORT TYPE: [...] sodium is 139, potassium 4.0, chloride 107, wlpfspsywty90, glucose 102, BUN 12, creatinine 1.1, estimated GFR is 75.4, calcium is 7.8,magnesium is 1.72. Blood cultures x2 are negative so far at 48 hours ofincubation. PATIENT NAME: MATHEW CASTILLO ASSESSMENT AND PLAN: The patient with multiple medical problems was initiallyadmitted through the Emergency Room where he was transferred from [facility] because of urinary retention. The patient presented to [facility] with 2 days' history of not able to pass any urine and he was found tohave 3 liters urine in his bladder with some extravasation of urine into theperitoneal cavity. The patient had a Black catheter placed and bladder wasrelieved. He was transferred to [facility] forevaluation by Urology Service. The patient was kept on IV ceftriaxone.Initially, he showed improvement in his condition; however, he had a temperatureof up to 37.8 degrees Celsius tube winder on 10/20/2022, and at that time, hehad [...] 10/23/2022 18:27:31Date Transcribed: 10/23/2022 18:54:06 ESTRADA/Concepcion #: [id number] ID: [id number] Authenticated and Edited by Skip Jaffe MD On 11/02/22 2:23:13 AM at 0225 PATIENT NAME: MATHEW CASTILLO klio3877-13-50V37:54:00G.ZNW22145769-8068JEIastfv ble for patient zemlMOOTXCVXOLDMYZ6304-22-35G52:25:49 [facility] 2022-10-23 13:24:00 [id number] aGhwSkhJLc3bsJnyUglqEeffRd6J/ 9+IeZsFiivzfWJvmbHI79a3lkcL1809-85-02T21:24:00 [facility] ([facility])Nephrology Progress NoteREPORT#:[id number] REPORT STATUS: SignedDATE:10/23/22 TIME: 1323 PATIENT: MATHEW CASTILLO UNIT #: [id number]#: [id number] [address] [birth year] AGE: 62 SEX: M [...] 10/23 10/23 10/23 10/23 10/22 1622 1133 0810 0675 2006 Chemistry Sodium (134 - 147 mEq/L) [...] urine in his bladder. CT abdomen from [place] showed that the patient has a very [...] urine in his bladder. CT abdomen from [place] showed that the patient has a very [...] agree with above A/P at 1741 at 6542 RPT #:[id number] OF REPORTPRProgress uwks0728-80-15D35:24:00G.ZQRD09903866-6466WEWsvca able for patient htjbAVHPNRSSMAAWUO0740-93-18W40:42:17 [facility] 2022-10-22 18:32:00 [id number] vDLxbh7bA2zpPTqsq0OrsdwaesVgz jZbeL2XODV+aDyp/GSoOyXTs0jS1711-80-83W35:32:00 [facility] ([facility])Infectious Dis. Progress NoteREPORT#:[id number] REPORT STATUS: SignedDATE:10/22/22 TIME: 1831 PATIENT: MATHEW CASTILLO UNIT #: [id number]#: [id number] [address] AGE: 62 SEX: M [...] Had low-grade temperature of the 37.6 degreeC tube winder today. Remains afebrile at the present time. [...] IV antibiotics for now. at 0219 RPT #:[id number] OF REPORTPRProgress iqsu3131-69-73K23:32:00G.GKQE73184583-8640RFHjczr able for patient gbsmKLZGBRESCMXWJC3423-60-84J18:19:49 [facility] 2022-10-22 18:20:00 [id number] F3suR15zvs7toQN4lZQ9p304UkmfW xAojxsTiatNY1C0BWq1LUDOQjn89703-40-20C10:20:31800 8[address] [place] [address] PATIENT NAME: MATHEW CASTILLO ADMIT DATE: 10/16/22ACCOUNT NO: [id number] ROOM NO: G.6630 AGE: 62 REPORT TYPE: [...] comorbidities, was [facility]ad[facility] with [facility] urinaryret[facility]. The patient [...] need for urology evaluation, [facility] The patient was continued on IVceftriaxone and had been doing fairly well until tube winder yesterday when hestarted to have fever of [...] Dictated: 10/22/2022 18:20:30Date Transcribed: 10/22/2022 19:52:40/Trina #: [id number] ID: [id number] Authenticated and Edited by Skip Jaffe MD On 11/02/22 2:22:51 AM at 0323 PATIENT NAME: MATHEW CASTILLO ynth3544-77-59T69:52:00G.HAS19003484-6011FMEhpndt ble for patient xaueUEGQPAOZQJFNDH1913-10-16F60:24:12 [facility] 2022-10-22 18:15:00 [id number]/hYJ6AQ D6DOfjqWbclT89tl++pF3GzUCRbsS kpRVURlyvzZFrdcQH1qxz2Bi98S9480-28-28I49:15:00 [facility] Prog. NoteREPORT#:[id number] REPORT STATUS: SignedDATE:10/22/22 TIME: 1814 PATIENT: MATHEW CASTILLO UNIT #: [id number]#: [id number] [address] [birth year] AGE: 62 SEX: M ATTEND: Salinsa Alba I [facility] AUTHOR: Sofia Cheng NP * ALL edits or amendments must be made on the electronic/computer document * SubjectiveChief complaint:Abdominal distention, hydronephrosisHPI:62-year-old male with last medical history of, BPH, transferred from [place] for urology evaluation and treatment secondary to [...] 10/22 10/22 10/22 10/22 10/21 1700 1119 0787 0670 2003 Chemistry Sodium (134 - 147 mEq/L) [...] range of motion, normal sensory, normal motor functionNeuro/SEED YEAST OPERATOR: alert, oriented X 3Skin: dry, intact, no gross abnormalitiesPsychiatry: no hallucinations, normal moodProblem List/A P: 1. Rupture of ureter Free Text DxA P NotesFree text DxA P notes:Assessment:62-year-old male with last medical history of, BPH, transferred from [place] for urology evaluation and treatment secondary to [...] neededRepeat labsFurther recommendation based on patient's clinical kzrxon6510/17/2022Vital signs within normal limitsHypokalemia 3.2, hypomagnesemia 1.50Renal [...] controlFollow-up electrolytes and labs, continue medications and vjiqmzk5110/22/2022Vital signs within normal limits, POC glucose is controlledHypocalcemia 7.8, hypomagnesemia 1.72No sonographic evidence for DVTBlood culture shows no growth after 48 hoursPatient with good urine output, renal function is improved, patient will follow-up as an outpatientStill on IV antibiotic Zosyn, tamsulosin p.o.Continue electrolyte control-replace magnesiumContinue pain control, glycemic controlFollow-up labs, continue medications and supportive care at 0314 at 0842 RPT #:[id number] OF REPORTPRProgress gpxv5307-12-63C76:15:00G.VBMR91972445-6602FVZrpjy able for patient nmgtMPSXTZHZDOZRML1152-35-83S04:14:38 [facility] 2022-10-22 09:31:00 [id number] j/rAPg8mER4vspxMdflKkhVNDcqvZ gq94Ya3Yo3NOjJbmAboLEw8mr2e5412-36-83G04:31:00 [facility] Progress NoteREPORT#:[id number] REPORT STATUS: SignedDATE:10/22/22 TIME: 930 PATIENT: MATHEW CASTILLO UNIT #: [id number]#: [id number] ROOM/BED: 6630-1DOB: [birth year] AGE: 62 SEX: M ATTEND: Salinas Alba I [facility] AUTHOR: Carmen Kemp * ALL [...] 10/22 10/22 10/22 10/21 1700 1119 0737 0655 2004 Chemistry Sodium (134 - 147 mEq/L) 139 [...] urine in his bladder. CT abdomen from [place] showed that the patient has a very [...] urine in his bladder. CT abdomen from [place] showed that the patient has a very [...] patient's nurse, and . Toby Koehler 10/22/22 1527:Attestations Physician AttestationReviewed findings plan:Patient examined Renal function improved and wnl, black to gravity, -2/2 post-obstrucitve uropathy, replace electrolytes as needed, agree with aboveA/P at 1842 at 2220 RPT #:[id number] OF REPORTPRProgress yeis7883-47-55A40:31:00G.QGKN32022115-1048NCKjqou able for patient ghwlOUNQXHACTKLSDS8869-92-81P88:42:25 [facility] 2022-10-21 20:48:00 [id number]+6U6 EzREw3pe/0EzHEAkrJxm/DYHjvyDQ 72aE8/uze7Scmp+5KW1yCC+IW8+2869-70-54I74:48:00 [facility])Internal Medicine Prog. NoteREPORT#:[id number] REPORT STATUS: SignedDATE:10/21/22 TIME: 2047 PATIENT: MATHEW CASTILLO UNIT #: [id number]#: [id number] [address] [birth year] AGE: 62 SEX: M ATTEND: Salinas Alba I [facility] AUTHOR: Sofia Cheng NP * ALL edits or amendments must be made on the electronic/computer document * SubjectiveChief complaint:Abdominal distention, hydronephrosisHPI:62-year-old male with last medical history of, BPH, transferred from [place] for urology evaluation and treatment secondary to [...] Mean Pulse Ox FiO2 10/20-10/21 36.8-37.2 70-84 14- 112-125/66-77 81.4-91.8 94-98 Last Documented: Result Date [...] (<10.0 mg/L) 36.0 H Laboratory Tests 10/21 042 Coagulation D-Dimer (<=500 ng/mlFEU) 5949 *H Laboratory [...] range of motion, normal sensory, normal motor functionNeuro/SEED YEAST OPERATOR: alert, oriented X 3Skin: dry, intact, no gross abnormalitiesPsychiatry: no hallucinations, normal moodProblem List/A P: 1. Rupture of ureter Free Text DxA P NotesFree text DxA P notes:Assessment:62-year-old male with last medical history of, BPH, transferred from [place] for urology evaluation and treatment secondary to [...] neededRepeat labsFurther recommendation based on patient's clinical ghxsyi2110/17/2022Vital signs within normal limitsHypokalemia 3.2, hypomagnesemia 1.50Renal [...] and present at 0104 at 1009 RPT #:[id number] OF REPORTPRProgress scse0082-02-92R32:48:00G.TAYP48095738-5182ZAOedtl able for patient fapuXWHEQSZKRBPUED9200-66-22H87:04:19 [facility] 2022-10-21 19:01:00 [id number] 4/ly7rs4xElrCgdYEBqP+nkzO2CVX 8hvzD1W8+wq1zhDCrAcQN3Od6UB4277-64-94O91:01:00 [facility] ([facility])Infectious Dis. Progress NoteREPORT#:[id number] REPORT STATUS: SignedDATE:10/21/22 TIME: 1900 PATIENT: MATHEW CASTILLO UNIT #: [id number]#: [id number] [address] [birth year] AGE: 62 SEX: M ATTEND: Salinas Alba I [facility] AUTHOR: Skip Jaffe MD * [...] Discussed with Skylar MENDIOLA. at 0242 RPT #:[id number] OF REPORTPRProgress vzpy7221-04-52D83:01:00G.IOKI19448252-9348AMKscbb able for patient ajqjGDBSYJHJUIXIDG5592-48-41Y23:42:47 [facility] 2022-10-21 11:23:00 [id number] B+tQTuF1e0EgsEspBjZs4vrh1UpNz MPS0n0V7/GFC5w/oYMGRRTjAWts4136-78-66K18:23:00 [facility] ([facility]Neph[facility] Progress NoteREPORT#:[id number] REPORT STATUS: SignedDATE:10/21/22 TIME: 1122 PATIENT: MATHEW CASTILLO UNIT #: [id number]#: [id number] [address] [birth year] AGE: 62 SEX: M ATTEND: Salinas Alba I [facility] AUTHOR: Carmen Kemp * ALL [...] O2 Flow FiO2 Mean Ox Delivery Rate 07/17 1124 37.2 73 17 120/73 88.7 98 [...] urine in his bladder. CT abdomen from [place] showed that the patient has a very [...] urine in his bladder. CT abdomen from [place] showed that the patient has a very [...] above A/P at 1640 at 2055 RPT #:[id number] OF REPORTPRProgress ztxx9887-31-75R41:23:00G.AIGR46300158-0878THSukdt able for patient fnonIVZVTBSTZJFTBR0680-28-48T30:40:19 [facility] 2022-10-21 03:59:00 [id number]+N QrWsU8quYRULF9VANIdgzBCQRSknR bxiPfRetrkn163SiJ3PBHCnd7X87114-58-43H42:59:[address] [place], [place] [address] PATIENT NAME: MATHEW CASTILLO ADMIT DATE: 10/16/22ACCOUNT NO: [id number] ROOM NO: 6630 AGE: 62 REPORT TYPE: [...] who was initially admitted to hospital in [place] where he presented with acute urinary retention. [...] need forurology evaluation, [facility] On admission, the [...] temperature of up to 37.8 degrees Celsius tube winder today and after that he had been only having low-grade fever. Denies any nausea, vomiting or diarrhea. Denies any chest pain, cough, expectoration, or shortness of breath. He continues to have a Black catheter in place and admits to having suprapubic areasoreness and pain, however, states that the pain and soreness he had at the timeof presentation to the [facility] has resolved. 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 IMPRESSION: The patient with multiple comorbidities including history of schizophrenia and benign prostatic hypertrophy with worsening urinary difficulties for last over 2 years, was admitted through emergency room where [facility]was [facility] because of need for urology [...] to 37.8 degrees Celsius last night and tube winder and had developed marked leukocytosis. Clinically, he [...] the clinical course of the PATIENT NAME: CASTILLOMATHEW patient. Thank you again for inviting me to participate in the care of your patient. I will continue to follow along with you. The case was discussed with MARLENA Cheng, and with the patient's nursing staff. Dictated By: Skip Jaffe MD Date Dictated: 10/21/2022 03:59:46Date Transcribed: 10/21/2022 04:40:04ESTRADA/Annelise #: [id number] ID: [id number] by Skip Jaffe MD On 11/02/2022 02:22:37 AM at 0222 PATIENT NAME: ANNAMATHEW :40:00G.CA [id number] for patient ilfhFQTIPPHFOTCBYJ3245-13-62L92:23:17 [facility] 2022-10-20 20:34:00 [id number] AJVbDpKOE1/xC39WIW3wtcIIMC8vl DMhnobe+VOwCMjJ3j6aUdMh1HAe2791-50-97K72:34:00 [facility] ([facility])Nephrology Progress NoteREPORT#:[id number] REPORT STATUS: SignedDATE:10/20/22 TIME: 2033 PATIENT: MATHEW CASTILLO UNIT #: [id number]#: [id number] ROOM/BED: [facility]-1DOB: [birth year] AGE: 62 SEX: [...] Coagulation INR (0.8 - 1.2) 1.1 PTT ([place]) (25.0 - 39.5 Seconds) 26.1 PT Patient/Control [...] - 32.0 %) 9.5 L 7.3 L [place] % (Auto) (4.8 - 9.0 %) 7.2 7.5 Eos % (Auto) (0.3 - 3.7 %) 2.6 2.2 Baso % (Auto) (0.0 - 2.0 %) 0.4 0.3 Neut # (Auto) (2.0 - 7.6 x10 3/uL) 13.75 H 15.38 H Lymph # (Auto) (1.0 - 3.8 x10 3/uL) 1.67 1.40 [place] # (Auto) (0.1 - 0.8 x10 3/uL) [...] urine in his bladder. CT abdomen from [place] showed that the patient has a very [...] urine in his bladder. CT abdomen from [place] showed that the patient has a very [...] IV hydralazine Schizophrenia-Home medications resumed at 2150 [facility] #:[id number] OF REPORTPRProgress thri0560-07-03P35:34:00G.ILJT12010530-8852AZRchrm able for patient zzrpEXCFTNGDZCVGFB8847-14-63U09:50:59 [facility] 2022-10-20 18:11:00 [id number] FUSF68ZRmGXdxtb7f6crQAh/7B3qc ESyMXYun+yh33ElydvgDqEagQz46389-72-57E79:11:00 [facility] Prog. NoteREPORT#:[id number] REPORT STATUS: SignedDATE:10/20/22 TIME: 1810 PATIENT: MATHEW CASTILLO UNIT #: [id number]#: [id number] ROOM/BED: 6630-1DOB: [birth year] AGE: 62 SEX: M ATTEND: Salinas Alba I [facility] AUTHOR: Sofia Cheng CLINICAL TECH * ALL edits or amendments must be made on the electronic/computer document * SubjectiveChief complaint:Abdominal distention, hydronephrosisHPI:62-year-old male with last medical history of, BPH, transferred from [place] for urology evaluation and treatment secondary to [...] - 32.0 %) 9.5 L 7.3 L [place] % (Auto) (4.8 - 9.0 %) 7.2 7.5 Eos % (Auto) (0.3 - 3.7 %) 2.6 2.2 Baso % (Auto) (0.0 - 2.0 %) 0.4 0.3 Neut # (Auto) (2.0 - 7.6 x10 3/uL) 13.75 H 15.38 H Lymph # (Auto) (1.0 - 3.8 x10 3/uL) 1.67 1.40 [place] # (Auto) (0.1 - 0.8 x10 3/uL) [...] range of motion, normal sensory, normal motor functionNeuro/SEED YEAST OPERATOR: alert, oriented X 3Skin: dry, intact, no gross abnormalitiesPsychiatry: no hallucinations, normal moodProblem List/A P: 1. Rupture of ureter Free Text DxA P NotesFree text DxA P notes:Assessment:62-year-old male with last medical history of, BPH, transferred from [place] for urology evaluation and treatment secondary to [...] neededRepeat labsFurther recommendation based on patient's clinical tjvqlf8910/17/2022Vital signs within normal limitsHypokalemia 3.2, hypomagnesemia 1.50Renal [...] supportive care at 0141 at 1009 RPT #:[id number] OF REPORTPRProgress lujw4375-53-47T84:11:00G.XRYF76452297-9004VLCfqps able for patient jnwdLXOPGAOKXPYAXE3038-52-85B49:42:15 [facility] 2022-10-20 17:06:00 [id number] wsxp/18NZOaT9uyJyhfSsiwPtc7Lh OvR0/NObOoy7IdnJ0lbUeGUaBSf8912-44-58U07:06:00 [facility] ([facility])Infect Disease Consult NoteREPORT#:[id number] REPORT STATUS: SignedDATE:10/20/22 TIME: 1706 PATIENT: MATHEW CASTILLO UNIT #: [id number]#: [id number] [address] [birth year] AGE: 62 SEX: M [...] Allergies:No Known Allergies (10/16/22) at 0239 RPT #:[id number] OF REPORTQCUxjsqybxbhkh6273-05-56X24:06:00G.PDOC2 7836934-7210IYDzuhyuglt for patient ozoiNEOFSOOPNNVIOH9587-98-85Z69:40:06 [facility] 2022-10-20 01:07:00 [id number] 9eASCJtvoYFXRr6HyJuzo+AYBwgnw 5Gww5zlF3RWa6JKKuGUBIp8QNZI8058-50-31Y92:07:18337 7[address] [place] [address] PATIENT NAME: MATHEW CASTILLO ADMIT DATE: 10/16/22ACCOUNT NO: [id number] ROOM NO: 6630 AGE: 62 REPORT TYPE: eELECTROCARDIOGRAM REPORT SEX: M ADMITTING PHYSICIAN:Salinas Alba MD ATTENDING PHYSICIAN:Salinas Alba MD Order:[id number] Reason : Sepsis Test Date/Time Stamp:[place] Oct 20 2022 01:07:09Blood Pressure : / [...] MD at 1247 PATIENT NAME: MATHEW CASTILLO .[id number] AVAvailable for patient whxfXCGNMZJFUKEMPL6824-64-01H56:47:27 [facility] 2022-10-19 22:43:00 [id number]+bH+pxod Yqr9NRJL/CQt5pKUDg18nFjdqK6u/ gwtwc36o8H9qBbJtcisymC3o/R72469-05-16H75:43:00 [facility] Prog. NoteREPORT#:[id number] REPORT STATUS: SignedDATE:10/19/22 TIME: 2242 PATIENT: MATHEW CASTILLO UNIT #: [id number]#: [id number] [address] [birth year] AGE: 62 SEX: M ATTEND: Salinas Alba I [facility] AUTHOR: Sofia Cheng NP * ALL edits or amendments must be made on the electronic/computer document * SubjectiveChief complaint:Abdominal distention, hydronephrosisHPI:62-year-old male with last medical history of, BPH, transferred from [place] for urology evaluation and treatment secondary to [...] 10/19 10/19 10/19 10/19 1917 1615 1135 0779 0347 Chemistry Sodium (134 - 147 mEq/L) [...] - 32.0 %) 15.7 15.6 10.6 L [place] % (Auto) (4.8 - 9.0 %) 8.5 10.1 H 12.8 H Eos % (Auto) (0.3 - 3.7 %) 6.0 H 7.5 H 2.7 Baso % (Auto) (0.0 - 2.0 %) 0.7 0.7 0.4 Neut # (Auto) (2.0 - 7.6 x10 3/uL) 6.09 5.53 8.23 H Lymph # (Auto) (1.0 - 3.8 x10 3/uL) 1.48 1.39 1.22 [place] # (Auto) (0.1 - 0.8 x10 3/uL) [...] pH (5.0 - 7.0) 5.0 Ur Specific [place] (1.005 - 1.030) 1.015 Urine Protein (NEGATIVE) [...] Pulse Resp B/P B/P Mean Pulse Ox RxH084/-10/19 37.0-37.2 66-85 14-17 105-142/67-80 80.3-100.6 95-98 Last [...] range of motion, normal sensory, normal motor functionNeuro/SEED YEAST OPERATOR: alert, oriented X 3Skin: dry, intact, no gross abnormalitiesPsychiatry: no hallucinations, normal moodProblem List/A P: 1. Rupture of ureter Free Text DxA P NotesFree text DxA P notes:Assessment:62-year-old male with last medical history of, BPH, transferred from [place] for urology evaluation and treatment secondary to [...] neededRepeat labsFurther recommendation based on patient's clinical fdvtde1210/17/2022Vital signs within normal limitsHypokalemia 3.2, hypomagnesemia 1.50Renal [...] present care at 0229 at 1514 RPT #:[id number] OF REPORTPRProgress titu7764-50-11F63:43:00G.OIYS72436780-0811XHHqiwu able for patient uaomQHQCDHKZADTLHF2295-13-89L53:29:44 [facility] 2022-10-19 20:14:00 L63069210785R9N/jmkQ nwQNHV4Fy/a4AnGd1lIxfzd6Ao+fabi Ns9rL48T67aW/ksYHGHrbKn0Gev0560-02-17V71:14:00 [facility] HospitalNeph[facility] Progress NoteREPORT#:[id number] REPORT STATUS: SignedDATE:10/19/22 TIME: 2013 PATIENT: MATHEW CASTILLO UNIT #: [id number]#: [id number] [address] [birth year] AGE: 62 SEX: M [...] 10/19 10/19 10/19 10/19 10/18 1615 1135 0754 0345 2021 Chemistry Sodium (134 - 147 mEq/L) [...] % (Auto) (14.0 - 32.0 %) 15.7 [place] % (Auto) (4.8 - 9.0 %) 8.5 Eos % (Auto) (0.3 - 3.7 %) 6.0 H Baso % (Auto) (0.0 - 2.0 %) 0.7 Neut # (Auto) (2.0 - 7.6 x10 3/uL) 6.09 Lymph # (Auto) (1.0 - 3.8 x10 3/uL) 1.48 [place] # (Auto) (0.1 - 0.8 x10 3/uL) [...] pH (5.0 - 7.0) 5.0 Ur Specific [place] (1.005 - 1.030) 1.015 Urine Protein (NEGATIVE) [...] urine in his bladder. CT abdomen from [place] showed that the patient has a very [...] urine in his bladder. CT abdomen from [place] showed that the patient has a very [...] IV hydralazine Schizophrenia-Home medications resumed at 2148 [facility] #:[id number] OF REPORTPRProgress ozau0409-04-26L51:14:00G.ZEEF79578488-6006VBDjwoc able for patient urgiXTQBWUCWMKSHUF1904-24-79W28:49:08 [facility] 2022-10-18 20:26:00 L24008919998o4qZdZBg B86hXN8kKxDrDYKhcPvPBfUREvte8 sblLOfUxsLrGnxvTJJUWYx/ITw+2097-16-17Z10:26:00 [facility] Prog. NoteREPORT#:[id number] REPORT STATUS: SignedDATE:10/18/22 TIME: 2025 PATIENT: MATHEW CASTILLO UNIT #: [id number]#: [id number] ROOM/BED: 6630-1DOB: [birth year] AGE: 62 SEX: M ATTEND: Salinas Alba I [facility] AUTHOR: Sofia Cheng CLINICAL TECH * ALL edits or amendments must be made on the electronic/computer document * SubjectiveChief complaint:Abdominal distention, hydronephrosisHPI:62-year-old male with last medical history of, BPH, transferred from [place] for urology evaluation and treatment secondary to [...] Temp 37.1 10/18 1854 Pulse 75 10/18 1854 Resp 16 10/18 1854 24 hour I [...] % (Auto) (14.0 - 32.0 %) 15.6 [place] % (Auto) (4.8 - 9.0 %) 10.1 H Eos % (Auto) (0.3 - 3.7 %) 7.5 H Baso % (Auto) (0.0 - 2.0 %) 0.7 Neut # (Auto) (2.0 - 7.6 x10 3/uL) 5.53 Lymph # (Auto) (1.0 - 3.8 x10 3/uL) 1.39 [place] # (Auto) (0.1 - 0.8 x10 3/uL) [...] range of motion, normal sensory, normal motor functionNeuro/SEED YEAST OPERATOR: alert, oriented X 3Skin: dry, intact, no gross abnormalitiesPsychiatry: no hallucinations, normal moodProblem List/A P: 1. Rupture of ureter Free Text DxA P NotesFree text DxA P notes:Assessment:62-year-old male with last medical history of, BPH, transferred from [place] for urology evaluation and treatment secondary to [...] neededRepeat labsFurther recommendation based on patient's clinical vwuepd9410/17/2022Vital signs within normal limitsHypokalemia 3.2, hypomagnesemia 1.50Renal [...] supportive care at 2012 at 1301 RPT #:[id number] OF REPORTPRProgress hsrj8477-24-21F35:26:00G.BUCM30831476-9482MVEirsv able for patient axkyIGZENOPCSRZQKM4542-77-19A02:12:32 [facility] 2022-10-18 17:48:00 [id number] fE+ZoPRkjywEVDOT1FzrY3vSSD36b Y5uqS6wqSuyo3D/zOFXgx3pzjRB2287-46-27K66:48:00 [facility] HospitalNeph[facility] Progress NoteREPORT#:[id number] REPORT STATUS: SignedDATE:10/18/22 TIME: 1747 PATIENT: MATHEW CASTILLO UNIT #: [id number]#: [id number] ROOM/BED: 6630-1DOB: [birth year] AGE: 62 SEX: M ATTEND: [place] [facility] AUTHOR: Carmen Kemp * ALL [...] % (Auto) (14.0 - 32.0 %) 15.6 [place] % (Auto) (4.8 - 9.0 %) 10.1 H Eos % (Auto) (0.3 - 3.7 %) 7.5 H Baso % (Auto) (0.0 - 2.0 %) 0.7 Neut # (Auto) (2.0 - 7.6 x10 3/uL) 5.53 Lymph # (Auto) (1.0 - 3.8 x10 3/uL) 1.39 [place] # (Auto) (0.1 - 0.8 x10 3/uL) [...] urine in his bladder. CT abdomen from [place] showed that the patient has a very [...] urine in his bladder. CT abdomen from [place] showed that the patient has a very [...] K and magnesium supplementation. at 1937 RPT #:[id number] OF REPORTPRProgress jkih5607-22-98L64:48:00G.[id number] able for patient niypPOWZYQAOZGWNJS6733-92-21Y69:50:34 [facility] 2022-10-17 22:43:00 [id number] NTl9ay7ielPEJYJo+bLFP3BfZin4S 4rkngHR456jTxT8f24pnuh1wKeE9321-73-28H11:43:00 [facility] ([facility])Internal Medicine Prog. NoteREPORT#:[id number] REPORT STATUS: SignedDATE:10/17/22 TIME: 2242 PATIENT: MATHEW CASTILLO UNIT #: [id number]#: [id number] [address] [birth year] AGE: 62 SEX: M ATTEND: [place] [facility] AUTHOR: Sofia Cheng CLINICAL TECH * ALL edits or amendments must be made on the electronic/computer document * SubjectiveChief complaint:Abdominal distention, hydronephrosisHPI:62-year-old male with last medical history of, BPH, transferred from [place] for urology evaluation and treatment secondary to [...] Pulse Resp B/P B/P Mean Pulse Ox ZhN822/12-10/17 37.2-37.5 83-100 16-18 119-133/70-79 86.3-96.8 93-95 Last [...] (Auto) (14.0 - 32.0 %) 10.6 L [place] % (Auto) (4.8 - 9.0 %) 12.8 H Eos % (Auto) (0.3 - 3.7 %) 2.7 Baso % (Auto) (0.0 - 2.0 %) 0.4 Neut # (Auto) (2.0 - 7.6 x10 3/uL) 8.23 H Lymph # (Auto) (1.0 - 3.8 x10 3/uL) 1.22 [place] # (Auto) (0.1 - 0.8 x10 3/uL) [...] range of motion, normal sensory, normal motor functionNeuro/SEED YEAST OPERATOR: alert, oriented X 3Skin: dry, intact, no gross abnormalitiesPsychiatry: no hallucinations, normal moodProblem List/A P: 1. Rupture of ureter Free Text DxA P NotesFree text DxA P notes:Assessment:62-year-old male with last medical history of, BPH, transferred from [place] for urology evaluation and treatment secondary to [...] neededRepeat labsFurther recommendation based on patient's clinical oksbzv5810/17/2022Vital signs within normal limitsHypokalemia 3.2, hypomagnesemia 1.50Renal function is improved, discontinue bicarb drip, continue electrolyte control-replace as needed per nephroUrology is followingContinue tamsulosinBP control-on hydralazine as needed, pain controlContinue telemetry monitoring, intake and output, fall precautionFollow-up labs, continue medications and supportive care at 0210 at 1300 RPT #:[id number] OF REPORTPRProgress fehr0363-17-55J78:43:00G.DDGK17158285-3216LUMgphc able for patient nkagOVOQZKZPOZKDJX1776-22-55H12:10:49 [facility] 2022-10-17 17:41:00 [id number] V2QyVYy2YWkJJp31Q1d876rwfpbNh Tf6/7+9dIa2fxFaFpcmlmyTOL1c0641-95-88Q32:41:00 [facility] ([facility])Urology Progress NoteREPORT#:[id number] REPORT STATUS: SignedDATE:10/17/22 TIME: 1740 PATIENT: MATHEW CASTILLO UNIT #: [id number]#: [id number] [address] AGE: 62 SEX: M ATTEND: Salinas Alba I MDADM AUTHOR: Dave Jones MD * [...] (Auto) (14.0 - 32.0 %) 10.6 L [place] % (Auto) (4.8 - 9.0 %) 12.8 H Eos % (Auto) (0.3 - 3.7 %) 2.7 Baso % (Auto) (0.0 - 2.0 %) 0.4 Neut # (Auto) (2.0 - 7.6 x10 3/uL) 8.23 H Lymph # (Auto) (1.0 - 3.8 x10 3/uL) 1.22 [place] # (Auto) (0.1 - 0.8 x10 3/uL) [...] ofr cystoscopy. Home with black at 1742 [facility] #:[id number] OF REPORTPRProgress dscy7574-77-79U68:41:00G.LUGY77632718-9432WDGebtp able for patient vvhnYQSKLLCKHMXDNS7266-86-14C23:42:28 [facility] 2022-10-17 13:46:00 [id number] Kx0sSCBc6rVirfrsClScLkFZoemRr 4sFvfzCvnelh6CMZzvGuMta0lEW0249-35-65Q44:46:00 [facility] NoteREPORT#:[id number] REPORT STATUS: SignedDATE:10/17/22 TIME: 1346 PATIENT: MATHEW CASTILLO UNIT #: [id number]#: [id number] [address] AGE: 62 SEX: M ATTEND: Salinas Alba I [facility] AUTHOR: Carmen Kemp * ALL [...] (Auto) (14.0 - 32.0 %) 10.6 L [place] % (Auto) (4.8 - 9.0 %) 12.8 H Eos % (Auto) (0.3 - 3.7 %) 2.7 Baso % (Auto) (0.0 - 2.0 %) 0.4 Neut # (Auto) (2.0 - 7.6 x10 3/uL) 8.23 H Lymph # (Auto) (1.0 - 3.8 x10 3/uL) 1.22 [place] # (Auto) (0.1 - 0.8 x10 3/uL) [...] urine in his bladder. CT abdomen from [place] showed that the patient has a very [...] urine in his bladder. CT abdomen from [place] showed that the patient has a very [...] above A/P at 1759 at 2234 RPT #:[id number] OF REPORTPRProgress wrtd8391-30-12B30:46:00G.VIJJ40055116-3830MBCzzhy able for patient jgtjZJHZKORTELABZI5785-87-96E27:00:00 [facility] 2022-10-16 15:13:00 [id number] hJthiFImfXNrv7R63gVu5EUU4na8E wo4CYUldNWP8jNqDB9L9zps9Ax97044-11-83G57:13:97554 2[address] [place] [address] PATIENT NAME: MATHEW CASTILLO ADMIT DATE: 10/16/22ACCOUNT NO: [id number] ROOM NO: G.6630 AGE: 62 REPORT TYPE: CONSULTATION REPORT SEX: M ADMITTING PHYSICIAN:Salinas Alba MD ATTENDING PHYSICIAN:Salinas Alba MD CONSULTATION DATE:10/16/2022 REASON FOR CONSULTATION: Hydronephrosis, urinary retention. HISTORY OF PRESENT ILLNESS: This is a 62-year-old male with a history ofschizophrenia who was sent in from [place]. He had reportedly almost 3liters of urine [...] pressure 134/86, pulse 94, respiratory rate 18, rbtnryiwqgi61.1, 93% on room air.GENERAL: Alert. No acute distress, nontoxic.HEENT: Normocephalic, atraumatic. Nontoxic.NECK: Supple.HEART: Regular rate and rhythm.LUNGS: Respirations unlabored.ABDOMEN: Soft, nontender, nondistended. No CVA tenderness.EXTREMITIES: Moving all extremities well. LABORATORY DATA: White blood cell count 11, hemoglobin 10.9, platelets 207.Creatinine was 2.1 on admission, now down to 1.4. ASSESSMENT AND PLAN: We reviewed the CT scan of the abdomen and pelvis from [facility]. The patient has a very large [...] Dictated: 10/16/2022 15:13:22Date Transcribed: 10/16/2022 16:06:29TESSIE/Yulisa #: [id number] ID: [id number] and Edited by Dave Jones MD On 11/12/22 1:37:06 PM at 0138 PATIENT NAME: MATHEW CASTILLO :06:00G.CA [id number] for patient dghkJXEXGFVPVWYUIW9665-83-24F66:40:23 [facility] 2022-10-16 12:39:00 [id number] VXnVQ/JoIck2DInq4ddMHyOCnq+PL XU1YvpkAHilKkBRVj1w5iS4CxYO7551-54-12G84:39:00 [facility] ([facility])Nephrology Consultation NoteREPORT#:[id number] REPORT STATUS: SignedDATE:10/16/22 TIME: 1239 PATIENT: MATHEW CASTILLO UNIT #: [id number]#: [id number] [address] AGE: 62 SEX: M ATTEND: Salinas Alba I [facility] AUTHOR: Carmen Kemp * ALL edits or amendments must be made on the electronic/computer document * Carmen Kemp 10/16/22 1239:History of Present IllnessRequesting clinician: Salinas Deshpande/DONAVON Blackeashero for consult:AKIElectrolyte imbalanceChief complaint:Concern for ruptured ureterPCP:PCP: No Primary or Family Physician HPI: is a pleasant 62 years old male with PMH significant for schizophrenia, HTN, BPH, current everyday smoker. The patient states that on Friday last week, he noted abdominal distention, associated w/ pain and was unable to urinate. He was seen by his daughter Friday who took him to ER in [place]. He had CT abdomen which revealed b/l hydronephrosis and concern for possible ureteral rupture. He was transferred to [facility] [place] for Urology evaluation. Initial VS at the [...] (Auto) (14.0 - 32.0 %) 3.8 L [place] % (Auto) (4.8 - 9.0 %) 13.6 H Eos % (Auto) (0.3 - 3.7 %) 0.4 Baso % (Auto) (0.0 - 2.0 %) 0.2 Neut # (Auto) (2.0 - 7.6 x10 3/uL) 8.96 H Lymph # (Auto) (1.0 - 3.8 x10 3/uL) 0.42 L [place] # (Auto) (0.1 - 0.8 x10 3/uL) [...] urine in his bladder. CT abdomen from [place] showed that the patient has a very [...] urine in his bladder. CT abdomen from [place] showed that the patient has a very [...] patient's nurse, and . Toby Koehler 10/16/22 8381:Attestations Physician AttestationReviewed findings plan:Patient examined 62 years old male with PMH significant for schizophrenia, HTN, BPH, current everyday smoker. The patient states that on Friday last week, he noted abdominal distention, associated w/ pain and was unable to urinate. He wasseen by his daughter Friday who took him to ER in [place]. He had CT abdomen which revealed b/l [...] above A/P at 1902 at 2211 RPT #:[id number] OF REPORTVJPfbqidwkqhzb5927-25-54F17:39:00G.PDOC2 [id number] for patient mmluIRLNBMVQYMIPKM4211-17-38P60:02:18 [facility] 2022-10-16 11:15:00 [id number]+uyISa nluAb/GWMjsNnkxWewP0tH9XCgRnh cBg0rMCMuiwFlDX4kNY96IW0hyL0013-57-10W87:15:00 [facility] ([facility])History Physical - AdultREPORT#:[id number] REPORT STATUS: SignedDATE:10/16/22 TIME: 1115 PATIENT: MATHEW CASTILLO SINCERE UNIT #: [id number]#: [id number] ROOM[facility]BED: [facility]30-1DOB: [birth year] AGE: 62 SEX: M ATTEND: Salinas Alba I [facility] AUTHOR: Sofia Cheng NP * ALL edits or amendments must be made on the electronic/computer document * History of Present Illness HPIChief complaint:Abdominal distention, hydronephrosisHPI:62-year-old male with last medical history of, BPH, transferred from [place] for urology evaluation and treatment secondary to [...] range of motion, normal sensory, normal motor functionNeuro/SEED YEAST OPERATOR: alert, oriented X 3Skin: dry, intact, no [...] (Auto) (14.0 - 32.0 %) 3.8 L [place] % (Auto) (4.8 - 9.0 %) 13.6 H Eos % (Auto) (0.3 - 3.7 %) 0.4 Baso % (Auto) (0.0 - 2.0 %) 0.2 Neut # (Auto) (2.0 - 7.6 x10 3/uL) 8.96 H Lymph # (Auto) (1.0 - 3.8 x10 3/uL) 0.42 L [place] # (Auto) (0.1 - 0.8 x10 3/uL) [...] last medical history of, BPH, transferred from [place] for urology evaluation and treatment secondary to [...] patient's clinical course at 0232 at 1204 RPT #:[id number] OF REPORTHPHistory and physical kgtzotbvxhc0093-32-29U19:15:00G.[id number] AVAvailable for patient lpsaJHXOODZLCMIQPJ4196-67-60F06:32:18 [facility] 2022-10-16 03:54:00 [id number]+AgTxa y2r/dziq9XLpZ7FHMCHO2yup3mzdp j2gzciKv8I2jzZiLm+kEyVfOb3O1954-22-14R17:54:00 [facility] ([facility])EMERGENCY PROVIDER REPORTREPORT#:[id number] REPORT STATUS: SignedDATE:10/16/22 TIME: 035 PATIENT: MATHEW CASTILLO UNIT #: [id number]#: [id number] [address] 62 SEX: M PCP PHYS: No [...] Documented: Result Date Time Pulse Ox 96 07/12 0330 B/P 146/80 10/16 329 B/P Mean 107 [...] (Auto) (14.0 - 32.0 %) 3.8 L [place] % (Auto) (4.8 - 9.0 %) 13.6 H Eos % (Auto) (0.3 - 3.7 %) 0.4 Baso % (Auto) (0.0 - 2.0 %) 0.2 Neut # (Auto) (2.0 - 7.6 x10 3/uL) 8.96 H Lymph # (Auto) (1.0 - 3.8 x10 3/uL) 0.42 L [place] # (Auto) (0.1 - 0.8 x10 3/uL) [...] 10/16 Sodium Chloride 10 ML IV 10/16 1808 3926 ConsultationConsultation Referral/Consult Name aDve Jones MD [employer] Called Urology [facility] [employer] Discussed with business risk consultant Requested Call Time 0345 Requested Call [...] B/P Mean 107 10/16 0330 Pulse 90 10/16 0330 O2 Delivery Room air 10/16 0308 Temp 37.1 10/16 0308 Resp 18 10/16 0308 All vital signs available at the time of this entry have been reviewed. Clinical ImpressionClinical ImpressionPrimary Impression: Rupture of ureter Disposition DecisionHospitalize Hosp Physician Name Salinas Alba MD [facility] Physician Hospitalist Request Time 0508 Request [...] chart for administrative purposes only. at 1907RPT #:[id number] OF REPORTEDEmersiloam springs regional hospital department scojun6262-63-24T42:54:00G.AFQW99971067-2719WNAaf ilable for patient tvdcRASAFKDAUIUBLM1644-50-84C15:07:49 [facility]
--- NOTE | 2023-08-02 09:52 | EDPHYS ---
Physician Documentation [facility] Name: Mathew Porter Age: 62 yrs Sex: Male : 1960 Arrival Date: 08/02/2023 Time: 09:21 Bed 6 Private MD: ED Physician Octavio Perez HPI: 08/01 09:38 This 62 yrs old Male presents to ER via Unassigned with complaints of Needs Urinary sb4 Catheter Replacement. 09:42 Patient states that he has had his urinary Johns catheter in for 1 month now and it sb4 needs to replaced every month. States that his PCPs office is unable to do that for him so he came here for assistance. Has no other complaints at this. Historical: - Allergies: 09:38 NKA; hb - Home Meds: 09:38 None [Active]; hb - PMHx: 09:38 Schizophrenia; hb - PSHx: 09:38 Urolift (December); hb - Immunization history:: Adult Immunizations up to date. - Infectious Disease History:: Denies. - Social history:: Smoking status: Patient reports the use of cigarette tobacco products. ROS: 09:42 Constitutional: Negative for fever, chills, and weight loss, sb4 09:42 All other systems are negative, Exam: 09:42 Constitutional: This is a well developed, well nourished patient who is awake, alert, sb4 and in no acute distress. Head/Face: Normocephalic, atraumatic. Eyes: Extra-ocular motions intact. Periorbital areas with no swelling, redness, or edema. ENT: Mucous membranes moist. Vital Signs: 09:37 BP 142 / 98; Pulse 73; Resp 16; Temp 98.3; Pulse Ox 97% on R/A; Weight 70.31 kg; Height hb 5 ft. 10 in. ; Pain 0/10; 09:37 Body Mass Index 22.24 (70.31 kg, 177.8 cm) hb 09:37 Pain Scale: Adult hb MDM: 09:32 Patient medically screened. sb4 09:42 Data reviewed: vital signs, nurses notes, and as a result, I will discharge patient. sb4 08/01 09:37 Order name: [facility]. Order: remove and insert new johns catheter pls; Complete Time: 09:52 sb4 Administered Medications: No medications were administered Disposition Summary: 08/02/23 09:51 Discharge Ordered Notes: Location: Home sb4 Problem: new sb4 Symptoms: have improved sb4 Condition: Stable sb4 Diagnosis - encounter for exchange of urinary johns catheter sb4 Followup: sb4 - With: Ricky Navarrete MD - When: 09/01/2023 - Reason: Discharge Instructions: - Discharge Summary Sheet sb4 - Indwelling Urinary Catheter Care, Adult sb4 Forms: - Medication Reconciliation Form sb4 - Prescription Opioid Use sb4 - Patient Portal Instructions sb4 - Leadership Thank You Letter sb4 Signatures: Nena Huggins RN RN Ashia Martinez PA-C PA-C sb4
--- NOTE | 2023-08-02 09:52 | ER ---
Nurse's Notes [facility] Name: Mathew Porter Age: 62 yrs Sex: Male : 1960 Arrival Date: 08/02/2023 Time: 09:21 Bed 6 Private MD: Diagnosis: encounter for exchange of urinary johns catheter Presentation: 08/01 09:37 Chief complaint: Sent by Dr. Guillermo for catheter replacement. Coronavirus screen: At this hb time, the client does not indicate any symptoms associated with coronavirus-19. Ebola Screen: No symptoms or risks identified at this time. Initial Sepsis Screen: Does the patient meet any 2 criteria? No. Patient's initial sepsis screen is negative. Does the patient have a suspected source of infection? No. Patient's initial sepsis screen is negative. Risk Assessment: Do you want to hurt yourself or someone else? Patient reports no desire to harm self or others. Onset of symptoms was August 02, 2023. 09:37 Method Of Arrival: Ambulatory hb 09:37 Acuity: JAMILA 4 hb Triage Assessment: 09:38 General: Appears in no apparent distress. Behavior is calm, cooperative. Pain: Denies hb pain. Neuro: Level of Consciousness is awake, alert, obeys commands, Oriented to person, place, time, situation. Cardiovascular: Patient's skin is warm and dry. Respiratory: Respiratory effort is even, unlabored, Respiratory pattern is regular, symmetrical. : Johns in place to gravity drainage. Historical: - Allergies: 09:38 NKA; hb - Home Meds: 09:38 None [Active]; hb - PMHx: 09:38 Schizophrenia; hb - PSHx: 09:38 Urolift (December); hb - Immunization history:: Adult Immunizations up to date. - Infectious Disease History:: Denies. - Social history:: Smoking status: Patient reports the use of cigarette tobacco products. Vital Signs: 09:37 BP 142 / 98; Pulse 73; Resp 16; Temp 98.3; Pulse Ox 97% on R/A; Weight 70.31 kg; Height hb 5 ft. 10 in. ; Pain 0/10; 09:37 Body Mass Index 22.24 (70.31 kg, 177.8 cm) hb 09:37 Pain Scale: Adult hb ED Course: 09:29 Patient arrived in ED. mg5 09:32 Ash[facility] Robertson [facility] sb4 09:32 Octavio Perez MD is Attending Physician. sb4 09:36 Marleny Victor, RN is Primary Nurse. aa5 09:38 Triage completed. hb 09:38 Arm band placed on. hb 09:39 Client placed on continuous cardiac and pulse oximetry monitoring. NIBP monitoring hb applied. Pulse ox on. NIBP on. 09:49 Johns cath removed intact, balloon deflated. aa5 09:51 Ricky Navarrete MD is Referral Physician. sb4 09:52 Johns cath inserted, using sterile technique, 16 Fr., by nj, balloon inflated, to aa5 gravity drainage, returned clear yellow urine. Patient tolerated well. Administered Medications: No medications were administered Outcome: :51 Discharge ordered by . sb4 09:55 Patient left the ED. aa5 Signatures: Marleny Victor RN RN aa5 Nena Huggins RN RN Ashia Robertson PA-C PA-C sb4 Collette Tamayo mg5
[2023-08-02 10:16] VITALS: BP 142/98; TEMP 98.3; O2SAT 97
== END 2023-08-02 09:55 | disposition home or self-care (01) ==
LOC: ER 09:21
PROC: 0T2BX0Z Change Drainage Device in Bladder, External Approach (ICD-10-PCS; principal; 2023-08-02)
DX: Z46.6 Encounter for fitting and adjustment of urinary device (principal)

== ENCOUNTER 2023-09-03 14:36 | Emergency (ER) | payer OTHER ==
--- OUTSIDE RECORDS SUMMARY | 2023-09-03 14:41 | XMS REPORT | Continuity of Care Document ---
Author Name Unknown Address [address] [facility] [place]. 1 [address] [place] [id number] [facility] thconnect Address [address] [facility] [place] 1 [address] [place] [address] Care Team Providers Care Machine Designer Name Role Phone Salinas Alba I Attending [...] s DA Active U 10-16 00:00: 00 [facility] Encounters Start Date/Time End Date/Time Encounter Type Admission Type Attending Clinicians Care Facility Care Department Encounter ID Source 2023-01-21 06:38:00 2023-01-22 20:00:00 Inpatient EM Salinas Alba [facility] MEDI.01 [id number] [facility] 2023-01-06 15:12:00 2023-01-11 21:08:00 Inpatient EM Salinas Alba [facility] MEDI.01 [id number] [facility] 2022-10-16 05:03:00 2022-10-26 19:41:00 Inpatient EM Salinas Alba [facility] MEDI.01 [id number] [facility] Results Test Description Test Time Test Comments Results Resul t Comments Source - CT ABD PELVIS W/CONT 2023-01-05 8 13:00:00 [facility] : 1960 Sex: M Name: MATHEW CASTILLO [facility] : 1960 Age/S: 62 / M [address] [place] [address] Blvd Unit #: [id number] Loc: [place] [address] Phys: Sofia Cheng SUPERVISOR PLASTERING Acct: [id number] Dis Date: Status: ADM IN PHONE #: [phone] Exam Date: 01/22/2023 1231 FAX #: [phone] Reason: ABD PAIN EXAMS: CPT CODE: [id number] CT ABD PELVIS W/CONT 09011 EXAM: CT abdomen and pelvis with contrast [...] 1 Signed Report (CONTINUED) Name: MATHEW CASTILLO [facility] : 1960 Age/S: 62 / M [address] [place] [address] Blvd Unit #: [id number] Loc: [place] [address] Phys: Sofia Cheng SUPERVISOR PLASTERING Acct: [id number] Dis Date: Status: ADM IN PHONE #: [phone] Exam Date: 01/22/2023 1231 FAX #: [phone] Reason: ABD PAIN EXAMS: CPT CODE: [id number] CT ABD PELVIS W/CONT 11529 (Continued) abdominal aortic aneurysm. Pelvic organs/bladder: Moderate [...] M.D. CC: Lakhwinder Guillermo MD; Sofia Cheng SUPERVISOR PLASTERING; Salinas Dukes MD Technologist:Rick Moran Jr, RT(R)(CT) CTDI: DLP: Trnscb Date/Time: 01/22/2023 (1300) t.SDR.BC0 Orig Print D/T: S: 01/22/2023 (8423) PAGE 2 Signed Report [id number] 07:46:00* Test Item Value Reference Range Interpretation Comme nts PHOSPHOROUS (test code = PHOS) 2.4 MG/DL 2.5-4.9 L [id number] 07:46:00* Test Item Value Reference Range Interpretation Comme nts MAGNESIUM (test code = MAG) 1.69 mg/dL 1.6-2.6 N NOTE: NEW NORMAL RANGE CBC W/AUTO [id number] 07:05:00* Test Item Value Reference Range Interpretation [...] 0.00 x10 3/uL 0.0-0.1 N BASIC METABOLIC [id number] 06:08:00* Test Item Value Reference Range Interpretation [...] CA) 8.2 mg/dL 8.0-10.5 N CBC W/AUTO [id number] 05:57:00* Test Item Value Reference Range Interpretation [...] c ode = MDIFF) NO CBC W/AUTO [id number] 08:15:00* Test Item Value Reference Range Interpretation [...] 0.00 x10 3/uL 0.0-0.1 N BASIC METABOLIC [id number] 07:28:00* Test Item Value Reference Range Interpretation [...] CA) 8.6 mg/dL 8.0-10.5 N BASIC METABOLIC [id number] 07:46:00* Test Item Value Reference Range Interpretation [...] CA) 8.7 mg/dL 8.0-10.5 N CBC W/AUTO [id number] 07:34:00* Test Item Value Reference Range Interpretation [...] 0.00 x10 3/uL 0.0-0.1 N CBC W/AUTO [id number] 08:43:00* Test Item Value Reference Range Interpretation [...] c ode = MDIFF) NO BASIC METABOLIC [id number] 07:14:00* Test Item Value Reference Range Interpretation [...] CA) 7.8 mg/dL 8.0-10.5 L CBC W/AUTO [id number] 08:58:00* Test Item Value Reference Range Interpretation [...] c ode = MDIFF) NO BASIC METABOLIC [id number] 08:27:00* Test Item Value Reference Range Interpretation [...] HGBA1C%) 5.1 %A1C 4.8-6.0 N CBC W/AUTO [id number] 08:05:00* Test Item Value Reference Range Interpretation [...] (test code = MDIFF) NO BASIC METABOLIC [id number] 07:46:00* Test Item Value Reference Range Interpretation [...] = LDL) 104.0 mg/dL 0-100 H <100 ATOEENQ08 0-129 NEAR OPTIMAL/ABOVE [id number] GWVEEOIZNL433-357 HIGH>TG=706 VERY HIGH*Guidelines provided by the National Cholesterol EducationProgram Adult Treatment Panel III [id number] 07:46:00* Test Item Value Reference Range Interpretation Comme nts PHOSPHOROUS (test code = PHOS) 3.4 MG/DL 2.5-4.9 N [id number] 07:46:00* Test Item Value Reference Range Interpretation Comme nts MAGNESIUM (test code = MAG) 1.69 mg/dL 1.6-2.6 N NOTE: NEW NORMAL RANGE TSH REFLEX TO [id number] 07:46:00* Test Item Value Reference Range Interpretation Comme nts TSH REFLEX TO FT4 (test code = TSHREFLEX) 2.37 IU/mL 0.42-5.47 N LACTIC [id number] 05:48:00* Test Item Value Reference Range Interpretation Comme nts LACTIC ACID (test code = LACT) 1.1 mmol/L 0.4-1.9 N LACTIC ACID [id number] 02:38:00* Test Item Value Reference Range Interpretation Comme nts LACTIC ACID REPEAT (test cod e = LACTR) 0.9 mmol/l 0.4-1.9 N CALLED SE[place]INO @01:18 TO REMIND WE NEEDED REPEATLACTIC [id number] 22:36:00* Test Item Value Reference Range Interpretation Comme nts LACTIC ACID (test code = LACT) 2.9 mmol/L 0.4-1.9 H UA RFLX MICR CULT IF [id number] 22:35:00* Test Item Value Reference Range Interpretation [...] Less than 14 days- CT ABD PELVIS [id number] 22:24:00 [facility] HUANGName: MATHEW CASTILLO : 1960 Sex: M Name: MATHEW CASTILLO [facility] : 1960 Age/S: 62 / M [address] Unit #: [id number] Loc: [place] [address] Phys: Vee Horton Acct: [id number] Dis Date: Status: [facility] ER PHONE #: [phone] Exam Date: 01/04/2023 0940 FAX #: [phone] Reason: GROSS HEMATURIA EXAMS: CPT CODE: [id number] CT ABD PELVIS W/CONT 57776 H 20 TIME OF STUDY: 01/04/2023 7:55 [...] Signed Report (CONTINUED) Name: MATHEW CASTILLO [facility] : 1960 Age/S: 62 / M [address] [place] [address] Bl Unit #: [id number] Loc: [place] [address] Phys: Vee Horton Acct: [id number] Dis Date: Status: REG ER PHONE #: [phone] Exam Date: 01/04/2023 09 FAX #: [phone] Reason: GROSS HEMATURIA EXAMS: CPT CODE: [id number] CT ABD PELVIS W/CONT 47868 (Continued) at 2224 Reported and signed by: Zia Magaña M.D. CC: Lakhwinder Guillermo MD; Vee Horton; Javier Sullivan MD Technologist:Latoya Moeller, RT(R); Lesvia Humphries CTDI: DLP: Trnscb Date/Time: 01/04/2023 (2223) t.SDR.SI1 Orig Print D/T: S: 01/04/2023 (2226) PAGE 2 Signed ReportCOMPREHENSIVE METABOLIC [id number] 21:07:00* Test Item Value Reference Range Interpretation [...] ALKP) 60 IUnit/L 20-125 N CBC W/AUTO [id number] 20:38:00* Test Item Value Reference Range Interpretation [...] (test code = MDIFF) NO BASIC METABOLIC [id number] 08:30:00* Test Item Value Reference Range Interpretation [...] reported result: 4.9 mg/dLEdited by: KRISTEN on 10/31/22:263239 0829: CA previously reported as: 4.9 *L mg/dL Critical [place] [address]/16/22 Nurse read back result and tech confirmed it's correct? Y GLUCOSE [id number] 17:27:00* Test Item Value Reference Range Interpretation Comme nts GLUCOSE BEDSIDE (test code = GLUBED) 109 MG/DL 70-110 N Performed by teto tse at [facility] GLUCOSE [id number] 12:34:00* Test Item Value Reference Range Interpretation Comme nts GLUCOSE BEDSIDE (test code = GLUBED) 95 MG/DL 70-110 N 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 gear at [facility] GLUCOSE [id number] 08:49:00* Test Item Value Reference Range Interpretation Comme nts GLUCOSE BEDSIDE (test code = GLUBED) 117 MG/DL 70-110 H 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 gear at [facility] BASIC METABOLIC [id number] 07:57:00* Test Item Value Reference Range Interpretation [...] = CA) 8.1 mg/dL 8.0-10.5 N GLUCOSE [id number] 17:07:00* Test Item Value Reference Range Interpretation Comme nts GLUCOSE BEDSIDE (test code = GLUBED) 127 MG/DL 70-110 H 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 gear at [facility] GLUCOSE [id number] 12:26:00* Test Item Value Reference Range Interpretation Comme nts GLUCOSE BEDSIDE (test code = GLUBED) 123 MG/DL 70-110 H 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 gear at [facility] GLUCOSE [id number] 07:59:00* Test Item Value Reference Range Interpretation Comme nts GLUCOSE BEDSIDE (test code = GLUBED) 92 MG/DL 70-110 N Performed by cer violeta milling 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 gear at [facility] BASIC METABOLIC [id number] 07:38:00* Test Item Value Reference Range Interpretation [...] CA) 7.8 mg/dL 8.0-10.5 L CBC W/AUTO [id number] 07:27:00* Test Item Value Reference Range Interpretation [...] REQUIRED (test code = MDIFF) NO GLUCOSE [id number] 21:25:00* Test Item Value Reference Range Interpretation Comme nts GLUCOSE BEDSIDE (test code = GLUBED) 154 MG/DL 70-110 H 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 gear at [facility] GLUCOSE [id number] 17:43:00* Test Item Value Reference Range Interpretation Comme nts GLUCOSE BEDSIDE (test code = GLUBED) 73 MG/DL 70-110 N 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 gear at [facility] GLUCOSE [id number] 10:08:00* Test Item Value Reference Range Interpretation Comme nts GLUCOSE BEDSIDE (test code = GLUBED) 87 MG/DL 70-110 N 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 gear at [facility] GLUCOSE [id number] 20:12:00* Test Item Value Reference Range Interpretation Comme nts GLUCOSE BEDSIDE (test code = GLUBED) 139 MG/DL 70-110 H 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 gear at [facility] GLUCOSE [id number] 17:32:00* Test Item Value Reference Range Interpretation Comme nts GLUCOSE BEDSIDE (test code = GLUBED) 79 MG/DL 70-110 N 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 gear at [facility] GLUCOSE [id number] 12:14:00* Test Item Value Reference Range Interpretation Comme nts GLUCOSE BEDSIDE (test code = GLUBED) 98 MG/DL 70-110 N 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 gear at [facility] GLUCOSE [id number] 08:36:00* Test Item Value Reference Range Interpretation Comme nts GLUCOSE BEDSIDE (test code = GLUBED) 92 MG/DL 70-110 N 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 gear at [facility] BASIC METABOLIC [id number] 07:50:00* Test Item Value Reference Range Interpretation [...] code = CA) 7.6 mg/dL 8.0-10.5 L [id number] 07:50:00* Test Item Value Reference Range Interpretation Comme nts MAGNESIUM (test code = MAG) 1.53 mg/dL 1.80-2.40 L - CTA CHEST FOR [id number] 00:00:00 [facility] : 1960 Sex: M Name: MATHEW CASTILLO [facility] : 1960 Age/S: 62 / M [address] [place] [address] Blvd Unit #: [id number] Loc: [place] [address] Phys: Sofia Cheng SUPERVISOR PLASTERING Acct: [id number] Dis Date:Status: ADM IN PHONE #: [phone] Exam Date: 10/23/2022 172 FAX #: [phone] Reason: ELEVATED D DIMER EXAMS: CPT CODE: [id number] [place] [address] PROCEDURE INFORMATION: Exam: CTA ChestWith Contrast Exam [...] 1 Signed Report (CONTINUED) Name: MATHEW CASTILLO [facility] : 1960 Age/S: 62 / M [address] [place] [address] Unit #: [id number] Loc: [id number] Phys: Sofia Cheng SUPERVISOR PLASTERING Acct: [id number] Dis Date: Status: ADM IN PHONE #: [phone] Exam Date: 10/23/2022 1728 FAX #: [phone] Reason: ELEVATED D DIMER EXAMS: CPT CODE: [id number] [place] [address] (Continued) flexure compatible with colitis incompletely evaluated. [...] by: Hayden Rg M.D. CC: Sofia Cheng SUPERVISOR PLASTERING; Salinas Dukes MD Technologist:Latoya Pérez, RT(R)(CT); . CTDI: DLP: Trnscb Date/Time: 10/23/2022 (2012) tHILARIOR.JT18 Orig Print D/T: S: 10/23/2022 (2012) PAGE 2 Signed ReportGLUCOSE [id number] 20:23:00* Test Item Value Reference Range Interpretation Comme nts GLUCOSE BEDSIDE (test code = GLUBED) 123 MG/DL 70-110 H Performed by [facility] avera tified milling 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 gear at [facility] GLUCOSE [id number] 17:34:00* Test Item Value Reference Range Interpretation Comme nts GLUCOSE BEDSIDE (test code = GLUBED) 132 MG/DL 70-110 H Performed by [facility] avera tified milling 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 gear at [facility] GLUCOSE [id number] 11:57:00* Test Item Value Reference Range Interpretation Comme nts GLUCOSE BEDSIDE (test code = GLUBED) 118 MG/DL 70-110 H Performed by [facility] avera tified milling 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 gear at [facility] GLUCOSE [id number] 08:22:00* Test Item Value Reference Range Interpretation Comme nts GLUCOSE BEDSIDE (test code = GLUBED) 100 MG/DL 70-110 N Performed by [facility] avera [employer] milling 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 gear at [facility] BASIC METABOLIC [id number] 08:05:00* Test Item Value Reference Range Interpretation [...] code = CA) 7.8 mg/dL 8.0-10.5 L [id number] 08:05:00* Test Item Value Reference Range Interpretation Comme nts MAGNESIUM (test code = MAG) 1.72 mg/dL 1.80-2.40 L GLUCOSE [id number] 21:10:00* Test Item Value Reference Range Interpretation Comme nts GLUCOSE BEDSIDE (test code = GLUBED) 148 MG/DL 70-110 H 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 gear at [facility] GLUCOSE [id number] 17:29:00* Test Item Value Reference Range Interpretation Comme nts GLUCOSE BEDSIDE (test code = GLUBED) 102 MG/DL 70-110 N 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 gear at [facility] GLUCOSE [id number] 11:54:00* Test Item Value Reference Range Interpretation Comme nts GLUCOSE BEDSIDE (test code = GLUBED) 104 MG/DL 70-110 N Performed by Ad Summos tifN3TWORK milling 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 gear at [facility] CBC W/MANUAL [id number] 10:35:00* Test Item Value Reference Range Interpretation [...] (test code = PLTMORPH) LARGE PLATELETS GLUCOSE [id number] 07:57:00* Test Item Value Reference Range Interpretation Comme [facility] GLUCOSE BEDSIDE (test code = GLUBED) 95 MG/DL 70-110 N 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 gear at [facility] C REACTIVE [id number] 07:48:00* Test Item Value Reference Range Interpretation Comme [facility] C REACTIVE PROTEIN (test cod e = CRP) 36.0 mg/L <10.0 H BASIC METABOLIC [id number] 07:40:00* Test Item Value Reference Range Interpretation [...] code = CA) 7.3 mg/dL 8.0-10.5 L [id number] 07:40:00* Test Item Value Reference Range Interpretation Comme nts MAGNESIUM (test code = MAG) 1.50 mg/dL 1.80-2.40 L [id number] 07:04:00* Test Item Value Reference Range Interpretation Comme nts D-DIMER (test code = DDIMER) 5949 ng/mlFEU See_Comment HH Critical result called to Brigido RUIZLAB.JJ1 at 0701 10/21/22Nurse read back result and tech confirmed it's correct? YESTHROMBOSIS AND/OR PULMONARY EMBOLISM AND THE CLINICAL CUT- OFF VALUE FOR EXCLUSION (500 ng/mL FEU) OF THESE CONDITIONSIS VALIDATED BY THE SENIOR ORACLE SOA DEVELOPER OF THE METHOD. A NEGATIVE D-DIMER RESULT [...] this result as normal/abnormal. - DUP VEIN [id number] 00:00:00 [facility] HUANGName: MATHEW CASTILLO : 1960 Sex: M Name: MATHEW CASTILLO [facility] Barrera Huang : 1960 Age/S: 62 / M [address] [place] [address] Unit #: [id number] Loc: [place] [address] Phys: Skip Jaffe MD Acct: [id number] Dis Date: Status: ADM IN PHONE #: [phone] Exam Date: 10/21/2022820 FAX #: [phone] Reason: R/o DVT EXAMS: CPT CODE: [id number] DUP VEIN ASAEL 87230 PROCEDURE INFORMATION: Exam: US Duplex Lower Extremity [...] MD; Salinas Paris MD Technologist: [facility] Date/Time: 10/21/2022 (911) t.SDR.AB61 Orig Print D/T:S: 10/21/2022 (911) Probe: PAGE 1 Signed Report GLUCOSE [id number] 20:40:00* Test Item Value Reference Range Interpretation Comme nts GLUCOSE BEDSIDE (test code = GLUBED) 148 MG/DL 70-110 H 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 gear at [facility] GLUCOSE [id number] 16:46:00* Test Item Value Reference Range Interpretation Comme nts GLUCOSE BEDSIDE (test code = GLUBED) 118 MG/DL 70-110 H 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 gear at [facility] GLUCOSE [id number] 16:46:00* Test Item Value Reference Range Interpretation Comme nts GLUCOSE BEDSIDE (test code = GLUBED) 122 MG/DL 70-110 H 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 gear at [facility] TROP-I HIGH [id number] 15:04:00* Test Item Value Reference Range Interpretation Comme [facility] TROP-I HIGH SENSITIVITY (test code = [...] URL. These results were obtained using Siemens AteVimty IM TnIHreagent. Results from different methodologies should not becompared to one another as quantitative results and URLs mayvary by method. BASIC METABOLIC [id number] 15:04:00* Test Item Value Reference Range Interpretation [...] CA) 7.1 mg/dL 8.0-10.5 L TROP-I HIGH [id number] 10:07:00* Test Item Value Reference Range Interpretation [...] URL. These results were obtained using Siemens Knowlent IM TnIHreagent. Results from different methodologies should not becompared to one another as quantitative results and URLs mayvary by method. CBC W/AUTO [id number] 09:54:00* Test Item Value Reference Range Interpretation [...] (test code = MDIFF) NO TROP-I HIGH [id number] 09:24:00* Test Item Value Reference Range Interpretation [...] URL. These results were obtained using Siemens AtellDesignPax IM TnIHreagent. Results from different methodologies should not becompared to one another as quantitative results and URLs mayvary by method. GLUCOSE [id number] 08:49:00* Test Item Value Reference Range Interpretation Comme nts GLUCOSE BEDSIDE (test code = GLUBED) 102 MG/DL 70-110 N Performed by teto mcdaniel milling 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 gear at [facility] COMPREHENSIVE METABOLIC [id number] 02:08:00* Test Item Value Reference Range Interpretation [...] code = ALKP) 47 IUnit/L 20-125 N [id number] 02:08:00* Test Item Value Reference Range [facility]ation [facility] LIP[facility] (test code = LIP) 57 U/L 13-57 N PROTHROMBIN [id number] 02:05:00* Test Item Value Reference Range Interpretation [facility] PROTHROMBIN TIME PATIENT (test code [...] Infarction (to prevent recurrent infarct). THROMBOPLASTIN TIME [id number] 02:05:00* Test Item Value Reference Range Interpretation [facility] THROMBOPLASTIN TIME PARTIAL (test code = PTT) 26.1 Seconds 25.0-39.5 N Therapeutic Rang e: 50.4 - 88.3 Seconds Effective 07/21/2018 LACTIC [id number] 01:59:00* Test Item Value Reference Range Interpretation [facility] LACTIC ACID (test code = LACT) 1.1 mmol/L 0.4-1.9 N CBC W/AUTO [id number] 01:51:00* Test Item Value Reference Range Interpretation [facility] WHITE BLOOD CELL (test code [...] = MDIFF) NO - XR CHEST 1 [id number] 00:00:00 [facility] : 1960 Sex: M FAX: Sofia Cheng NP [phone] [place]: St: [facility] FAX: Salinas Callahan Jacqui [phone] Name: ANNAMATHEW POST [facility] : 1960 Age/S: 62/M [address] [place] [address] Unit #: [id number] Loc: G.66[address] [place] [address] Phys: Sofia Cheng NP Acct: [id number] Dis Date: Status: ADM IN PHONE #: [phone] Exam Date: 10/20/2022106 FAX #: [phone] Reason: Sepsis EXAMS: CPT CODE: [id number] XR CHEST 1 V 07304 PROCEDURE INFORMATION: Exam: XR Chest Exam date [...] by: Reinaldo Jacobs M.D. CC: Sofia Cheng SUPERVISOR PLASTERING; Salinas Dukes MD Technologist: RT Nadeem(R) Trnscrd Date/Time/By: 10/20/2022 (213) : By: [id number] Orig Print D/T: S: 10/20/2022 (5) PAGE 1 Signed ReportGLUCOSE [id number] 21:00:00* Test Item Value Reference Range Interpretation Comme nts GLUCOSE BEDSIDE (test code = GLUBED) 135 MG/DL 70-110 H 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 gear at [facility] URINALYSIS [id number] 20:03:00* Test Item Value Reference Range Interpretation [...] MUCU) 1+ /LPF NONE SEEN UR SODIUM [id number] 20:03:00* Test Item Value Reference Range Interpretation Comme nts UR SODIUM RANDOM (test code = ALPHONSE) 102 MEQ/L The Reference Ra nge and Method Performance specificationshave not been established for this fluid. The test resultshould be correlated into the clinical context forinterpretation. UR PROTEIN [id number] 20:03:00* Test Item Value Reference Range Interpretation Comme nts UR PROTEIN RANDOM (test code = PROTU) 79 mg/dL UR CREATININE [id number] 20:03:00* Test Item Value Reference Range Interpretation Comme nts UR CREATININE RANDOM (test code = CREATU) 111.9 mg/dL The Reference Ra nge and Method Performance specificationshave not been established for this fluid. The test resultshould be correlated into the clinical context forinterpretation. UR OSMOLALITY [id number] 20:03:00* Test Item Value Reference Range Interpretation Comme nts UR OSMOLALITY RANDOM (test c ode = OSMOU) 575 MOS/KG 300-1000 UR OSMOLALITY [id number] 20:02:00* Test Item Value Reference Range Interpretation Comme nts UR OSMOLALITY RANDOM (test c ode = OSMOU) 575 MOS/KG 300-1000 N GLUCOSE [id number] 17:18:00* Test Item Value Reference Range Interpretation Comme nts GLUCOSE BEDSIDE (test code = GLUBED) 122 MG/DL 70-110 H 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 gear at [facility] GLUCOSE [id number] 12:48:00* Test Item Value Reference Range Interpretation Comme nts GLUCOSE BEDSIDE (test code = GLUBED) 109 MG/DL 70-110 N 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 gear at [facility] GLUCOSE [id number] 07:53:00* Test Item Value Reference Range Interpretation Comme nts GLUCOSE BEDSIDE (test code = GLUBED) 96 MG/DL 70-110 N Performed by Ad Summos tified milling 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 gear at [facility] BASIC METABOLIC [id number] 07:51:00* Test Item Value Reference Range Interpretation [...] code = CA) 7.5 mg/dL 8.0-10.5 L [id number] 07:51:00* Test Item Value Reference Range Interpretation Comme nts MAGNESIUM (test code = MAG) 1.65 mg/dL 1.80-2.40 L CBC W/AUTO [id number] 07:07:00* Test Item Value Reference Range Interpretation [...] (test c ode = MDIFF) NO GLUCOSE [id number] 20:44:00* Test Item Value Reference Range Interpretation Comme nts GLUCOSE BEDSIDE (test code = GLUBED) 116 MG/DL 70-110 H 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 gear at [facility] GLUCOSE [id number] 18:07:00* Test Item Value Reference Range Interpretation Comme nts GLUCOSE BEDSIDE (test code = GLUBED) 98 MG/DL 70-110 N 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 gear at [facility] GLUCOSE [id number] 12:23:00* Test Item Value Reference Range Interpretation Comme nts GLUCOSE BEDSIDE (test code = GLUBED) 135 MG/DL 70-110 H 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 gear at [facility] GLUCOSE [id number] 11:22:00* Test Item Value Reference Range Interpretation Comme nts GLUCOSE BEDSIDE (test code = GLUBED) 104 MG/DL 70-110 N Performed by [facility] avera tified milling 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 gear at [facility] BASIC METABOLIC [id number] 08:12:00* Test Item Value Reference Range Interpretation [...] code = CA) 7.4 mg/dL 8.0-10.5 L [id number] 08:12:00* Test Item Value Reference Range Interpretation Comme nts MAGNESIUM (test code = MAG) 1.48 mg/dL 1.80-2.40 L CBC W/AUTO MPFE9838-61-64 08:09:00* Test Item Value Reference Range Interpretation [...] (test c ode = MDIFF) NO GLUCOSE DHCPMTB9330-77-96 05:56:00* Test Item Value Reference Range Interpretation Comme nts GLUCOSE BEDSIDE (test code = GLUBED) 104 MG/DL 70-110 N 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 gear at [facility] GLUCOSE CUYJCHS6533-84-85 03:31:00* Test Item Value Reference Range Interpretation Comme nts GLUCOSE BEDSIDE (test code = GLUBED) 129 MG/DL 70-110 H 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 gear at [facility] GLUCOSE KOEVLWH2401-90-24 12:50:00* Test Item Value Reference Range Interpretation Comme nts GLUCOSE BEDSIDE (test code = GLUBED) 177 MG/DL 70-110 H 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 gear at [facility] CBC W/AUTO RDID9737-89-26 10:14:00* Test Item Value Reference Range Interpretation [...] 0.00 x10 3/uL 0.0-0.1 N VITAMIN D 79-JHSOGKI2664-40-13 08:19:00* Test Item Value Reference Range Interpretation Comme nts VITAMIN D 25-HYDROXY (test c ode = VITD25) 25.5 ng/mL 30-100 L Indication for Test: PTH DisorderCOMPREHENSIVE METABOLIC [id number] 08:14:00* Test Item Value Reference Range Interpretation [...] code = ALKP) 62 IUnit/L 20-125 N TSAPBMUIELO4874-88-95 08:14:00* Test Item Value Reference Range Interpretation Comme nts PHOSPHOROUS (test code = PHOS) 2.6 MG/DL 2.5-4.9 N UMZCAMSKH5519-30-19 08:14:00* Test Item Value Reference Range Interpretation Comme nts MAGNESIUM (test code = MAG) 1.50 mg/dL 1.80-2.40 L GLUCOSE RBMBSKQ0442-99-94 07:40:00* Test Item Value Reference Range Interpretation Comme nts GLUCOSE BEDSIDE (test code = GLUBED) 105 MG/DL 70-110 N 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 gear at [facility] GLUCOSE UYYUBTR3693-47-80 17:26:00* Test Item Value Reference Range Interpretation Comme [facility] GLUCOSE BEDSIDE (test code = GLUBED) 113 MG/DL 70-110 H Performed by cer violeta milling 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 gear at [facility] PROTHROMBIN OGOH6312-90-00 15:23:00* Test Item Value Reference Range Interpretation Comme [facility] PROTHROMBIN TIME PATIENT (test code = [...] (to prevent recurrent infarct). TSH REFLEX TO [id number] 14:32:00* Test Item Value Reference Range Interpretation Comme [facility] TSH REFLEX TO FT4 (test code = TSHREFLEX) 1.59 IU/mL 0.42-5.47 N HGBA1C%2022-10-16 14:19:00* Test Item Value Reference Range Interpretation Comme [facility] HGBA1C% (test code = HGBA1C%) 5.5 %A1C 4.8-6.0 N IIJUOQTNY3032-91-44 14:13:00* Test Item Value Reference Range Interpretation Comme [facility] MAGNESIUM (test code = MAG) 1.91 mg/dL 1.80-2.40 N COMPREHENSIVE METABOLIC KKFOM5881-05-32 14:13:00* Test Item Value Reference Range Interpretation Comme [facility] SODIUM (test code = NA) 138 [...] = ALKP) 62 IUnit/L 20-125 N GLUCOSE LGSLDPD5241-85-29 12:54:00* Test Item Value Reference Range Interpretation Comme nts GLUCOSE BEDSIDE (test code = GLUBED) 102 MG/DL 70-110 N 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 gear at [facility] GLUCOSE LHJSXQH5039-71-26 10:14:00* Test Item Value Reference Range Interpretation Comme nts GLUCOSE BEDSIDE (test code = GLUBED) 110 MG/DL 70-110 N Performed by [employer] milling 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 gear at [facility] CBC W/AUTO PAQB0655-56-43 05:58:00* Test Item Value Reference Range Interpretation [...] Notes Date/Time Note Provider Source 2023-02-14 02:12:00 [id number] VK0aht/fwov4d7fn6wq8qHwSSDxI8 +gn6UCPEwFN8JH/wFvKD4ddNH/o8904-92-38Q83:12:00 [facility] ([facility])Discharge SummaryREPORT#:[id number] REPORT STATUS: SignedREPORT INITIALIZATION DATE:02/14/23 TIME: 211 PATIENT: MATHEW CASTILLO UNIT #: [id number]#: [id number] ROOM/BED: 5507-1DOB: [birth year] AGE: 62 SEX: M [...] HYDRONEPHROSIS J98.11 ATELECTASIS N17.9 ACUTE KIDNEY FAILURE, LOJEPXTLTLJH23.8 OTHER RETENTION OF URINE D72.829 ELEVATED WHITE BLOOD CELL COUNT, UNSPECIFIED E83.39 OTHER DISORDERS OF PHOSPHORUS METABOLISM F20.9 SCHIZOPHRENIA, UNSPECIFIED E83.42 HYPOMAGNESEMIA I10 ESSENTIAL (PRIMARY) HYPERTENSION 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 N40.1 BENIGN PROSTATIC HYPERPLASIA WITH LOWER URINARY TRACT SYMP Hospital course:62-year-old male with last medical history of, BPH-s/p UroLift 01/03/2023, schizophrenia was transferred from [facility] ER with acute kidney injury and [...] his abdominal pain was better after the Balck catheter was inserted.Patient was admitted for further [...] (Auto) (14.0 - 32.0 %) 7.1 L [place] % (Auto) (4.8 - 9.0 %) 8.1 Eos % (Auto) (0.3 - 3.7 %) 0.4 Baso % (Auto) (0.0 - 2.0 %) 0.1 Neut # (Auto) (2.0 - 7.6 x10 3/uL) 9.37 H Lymph # (Auto) (1.0 - 3.8 x10 3/uL) 0.79 L [place] # (Auto) (0.1 - 0.8 x10 3/uL) [...] 3/uL) 0.[address] ABD PELVIS W/CONT 36967 EXAM: CT abdomen and pelvis with contrast [...] Care Discharge InstructionsAdditional Discharge Routines: PCP Follow-Up, Executive Assistant To President Follow-Up)( Diet: Regular Follow-up AppointmentsPCP follow up: PCP: Lakhwinder Guillermo MD PCP follow up timeframe: In 5 daysAttending Physician: Attending Physician: Salinas Alba MD Attending physician follow up timeframe: In 1-2 weeksConsulting provider 1: Provider 1: Dave Jones MD Specialty: Urology Consult follow up timeframe: In 1-[address] [place] [address] #:[phone] OF REPORTDSDischarge edrvjcs7011-31-29M07:12:00G.DIZT92850038-2778LJQy ailable for patient ydfsWHQSWTSQTLMDYF6717-08-42D16:16:15 [facility] 2023-02-04 04:06:00 [id number] 0gNch2can5UNVRactRM4bogg79Y80 TWjX+D/JjpFWqvNxxM8N92+kJ3D5251-91-02G64:06:00 [facility] ([facility])Discharge SummaryREPORT#:[id number] REPORT STATUS: SignedREPORT INITIALIZATION DATE:02/04/23 TIME: 0406 PATIENT: MATHEW CASTILLO UNIT #: [id number]#: [id number] ROOM/BED: RadhaG976-2KLQ: 59 AGE: 62 SEX: M ATTEND: Salinas [...] lift yesterday by Dr. Jones transferred from [place] for urology evaluation secondary tohematuria after bladder irrigation failed. Patient was seen and evaluated by Dr. 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 [facility] with urinary retention.Abnormal labs: [...] range of motion, normal sensory, normal motor functionNeuro/PRODUCTION SUPERINTENDENT HYDRO: alert, oriented X 3Skin: dry, intact, no [...] % (Auto) (14.0 - 32.0 %) 20.8 [place] % (Auto) (4.8 - 9.0 %) 7.7 Eos % (Auto) (0.3 - 3.7 %) 8.1 H Baso % (Auto) (0.0 - 2.0 %) 0.7 Neut # (Auto) (2.0 - 7.6 x10 3/uL) 4.51 Lymph # (Auto) (1.0 - 3.8 x10 3/uL) 1.51 [place] # (Auto) (0.1 - 0.8 x10 3/uL) [...] 3/uL) 0.[address] ABD PELVIS W/CONT 78612 H 20 TIME OF STUDY: 01/04/2023 7:55 [...] Care Discharge InstructionsAdditional Discharge Routines: PCP Follow-Up, Executive Assistant To President Follow-Up)( Diet: Cardiac Follow-up AppointmentsPCP follow up: PCP: Lakhwinder Guillermo MD PCP follow up timeframe: In 5 days Special instructions:CALL TO MAKE APPOINTMENTConsulting provider 1: Provider 1: Dave Jones MD Specialty: Urology Special instructions:CALL TO SCHEDULE APPOINTMENT at [address] [facility] #:[phone] OF REPORTDSDischarge njfxqnx0474-16-08X78:06:00G.KEKY94522542-8249OMPc ailable for patient muxwMFUHAHDWFYLEQQ2891-15-99N51:36:15 [facility] 2023-01-27 18:31:00 [id number] c4pDWc/QKUjerh/tqDdjh3ZpzTSZ0 ImBNtHMq4x6FR84L0cx53ObplOW6527-12-11O30:31:24121 3-0230 [place] [address] PATIENT NAME: MATHEW CASTILLO ADMIT DATE: 01/06/23ACCOUNT NO: [id number] ROOM NO: [facility] AGE: 62 REPORT TYPE: 360 - QUERY RESPONSE DOCUMENT SEX: M ADMITTING PHYSICIAN:Salinas Alba MD ATTENDING PHYSICIAN:Salinas Alba MD Provider Query QUERY TEXT: Condition General 360MD Query related questions should be directed to: [facility] Coding Query Helpline [Based on the below [...] AM at 1831 PATIENT NAME: MATHEW CASTILLO noteG.BNF75168255-7309HYOesuhdeuy for patient pztwVVTCRPOUWZQGNF7193-64-59Z82:31:38 [facility] 2023-01-27 13:09:00 [id number] fqFWbug+aseyPppzw/Y5TqgoC+/8Y tER/okvwYDo7bz++WxsG9q7MbAh4966-36-41V58:09:83410 3-0114 [place] [address] PATIENT NAME: MATHEW CASTILLO ADMIT DATE: 01/06/23ACCOUNT NO: [id number] ROOM NO: G.C146 AGE: 62 REPORT TYPE: 360 - QUERY RESPONSE DOCUMENT SEX: M ADMITTING PHYSICIAN:Salinas Alba MD ATTENDING PHYSICIAN:Salinas Alba MD Provider Query QUERY TEXT: Condition General 360MD Query related questions should be directed to: [facility] Coding Query Helpline [Based on your medical judgement and the clinical indicators listed below kindly specify the underlying cause of the patient's heamaturia(Hematuria due to bladder lift surgery, hematuria due to UTI, hematuria unspecified, or other more appropriate diagnosis)?.] The patient's Clinical Indicators include:62-year-old male with last medical history of, BPH, s/p bladder lift yesterdayby Dr. Jones transferred from [place] for urology evaluation secondary tohematuria after bladder [...] AM at 1309 PATIENT NAME: MATHEW CASTILLO noteG.[id number] for patient mlokAFYGTYCTNYOOEO7005-93-10Z26:10:17 [facility] 2023-01-27 13:09:00 [id number] VKHIrgY0QtF4qJ4FAFuzUoz5shp9u JYKiP1kbrlZOhN4PWy/8wjPCQim1521-47-64F88:09:48053 3-0115 [place] [address] PATIENT NAME: MATHEW CASTILLO ADMIT DATE: 01/06/23ACCOUNT NO: [id number] ROOM NO: G.C146 AGE: 62 REPORT TYPE: 360 - QUERY RESPONSE DOCUMENT SEX: M ADMITTING PHYSICIAN:Salinas Alba MD ATTENDING PHYSICIAN:Salinas Alba MD Provider Query QUERY TEXT: Condition General 360MD Query related questions should be directed to: [facility] Coding Query Helpline [Based on your clinical [...] blood culture, likely could be eithercontaminant or customer care representative of transient bacteremia: progress note 01/11/2023 Options provided:-- Respond - Create new note now-- Dismiss - Not applicable / Not valid-- Dismiss - Clinically unable to determine / Unknown-- Assign to another provider QUERY RESPONSE: sepsis was not confirmed, patient had localized infection Query created by: MADY PEREZ on 01/22/2023 3:09 AM at 1309 PATIENT NAME: MATHEW CASTILLO noteG.[id number] for patient fzmuQFYGWEZYFKBZRY2837-69-02T09:10:27 [facility] 2023-01-22 17:40:00 [id number] eUE1JoGH9NievqORuR7MbZ2LFTBie dO1zlwRezylqvNhpjFPtMWxmnkn8770-30-74F15:40:00 [facility] ([facility])Internal Medicine Prog. NoteREPORT#:[id number] REPORT STATUS: SignedREPORT INITIALIZATION DATE:01/22/23 TIME: 1740 PATIENT: MATHEW CASTILLO UNIT #: [id number]#: [id number] ROOM/BED: 5507-1DOB: [birth year] AGE: 62 SEX: M ATTEND: Salinas Alba I MDADM AUTHOR: Sofia Cheng NPREPT SERVICE DT/TIME: 01/22/23 1740* ALL edits or amendments must be made on the electronic/computer document * Objective GeneralVS/I O:Vital SignsDate Temp Pulse Resp B/P B/P Mean Pulse Ox HrE638/17-01/22 36.6-37.0 78-88 14-20 109-137/64-82 80.9-100.0 95-98 Last [...] Sodium Chloride (SODIUM CHLORIDE 0.9%) 1,000 ML .P36H07B IV Haloperidol (HALDOL) 10 MG BID PO [...] (Auto) (14.0 - 32.0 %) 9.8 L [place] % (Auto) (4.8 - 9.0 %) 9.0 Eos % (Auto) (0.3 - 3.7 %) 5.7 H Baso % (Auto) (0.0 - 2.0 %) 0.4 Neut # (Auto) (2.0 - 7.6 x10 3/uL) 7.35 Lymph # (Auto) (1.0 - 3.8 x10 3/uL) 0.97 L [place] # (Auto) (0.1 - 0.8 x10 3/uL) [...] notes:discharged see discharge summery at 2132 RPT #:[id number] OF REPORTPRProgress todv0929-17-76D52:40:00G.EUHE15188120-7343TLFyfgp able for patient osfbBLEKGHZTJHQMFS7616-77-75D70:33:02 [facility] 2023-01-22 12:19:00 [id number] MJ/T6rpxHkLJAjuTfhaYoLcec2Z// EVf1v5wZq+EiQOkhkOq+YkB23ga5649-05-56H75:19:00 [facility] ([facility])Nephrology Consultation NoteREPORT#:[id number] REPORT STATUS: SignedREPORT INITIALIZATION DATE:01/22/23 TIME: 1218 PATIENT: MATHEW CASTILLO UNIT #: [id number]#: [id number] [address]OM[address]DOB: [birth year] AGE: 62 SEX: M ATTEND: [...] thepatient given empirc abx and transferred to [facility] yesterday for furtherevaluation and management. Initial VS [...] Time Status Admin Sodium Chloride 1,000 ML .M26K97Y 01/21 2330 AC 01/22 (SODIUM CHLORIDE IV [...] Sodium Chloride (SODIUM CHLORIDE 0.9%) 1,000 ML .F77N85G IV Haloperidol (HALDOL) 10 MG BID PO [...] (Auto) (14.0 - 32.0 %) 9.8 L [place] % (Auto) (4.8 - 9.0 %) 9.0 Eos % (Auto) (0.3 - 3.7 %) 5.7 H Baso % (Auto) (0.0 - 2.0 %) 0.4 Neut # (Auto) (2.0 - 7.6 x10 3/uL) 7.35 Lymph # (Auto) (1.0 - 3.8 x10 3/uL) 0.97 L [place] # (Auto) (0.1 - 0.8 x10 3/uL) [...] and . at 1923 at 1933 RPT #:[id number] OF REPORTLPIkgvdpymwxfn0678-39-36U35:19:00G.PDOC2 2793771-7771UKQqcyrahul for patient asppOYRSOPGRGPFDOH3554-93-87W82:23:39 [facility] 2023-01-21 19:40:00 [id number] GFFA+AFHimxdUAKSHanlivZ9+XbyB K2vIAhiMyHAy74xOQ7CAslpb7Du2376-75-27G46:40:00 [facility])Urology Consult NoteREPORT#:[id number] REPORT STATUS: SignedREPORT INITIALIZATION DATE:01/21/23 TIME: 1939 PATIENT: MATHEW CASTILLO UNIT #: [id number]#: [id number] [address] [birth year] AGE: 62 SEX: M ATTEND: [...] at outside hospital and was transferred to [place] with acute renal failure and urinary retention. Outside labs showed creatinine of 5.6, GFR 11. They were able to place a catheter at the outside hospital and his creatinine currently is 2.6 GFR 27. Patient feels overall well he has a [address] [place] [address] that is patent and draining [...] (Auto) (14.0 - 32.0 %) 7.1 L [place] % (Auto) (4.8 - 9.0 %) 8.1 Eos % (Auto) (0.3 - 3.7 %) 0.4 Baso % (Auto) (0.0 - 2.0 %) 0.1 Neut # (Auto) (2.0 - 7.6 x10 3/uL) 9.37 H Lymph # (Auto) (1.0 - 3.8 x10 3/uL) 0.79 L [place] # (Auto) (0.1 - 0.8 x10 3/uL) [...] in outside hospital and was transferred to [place]. He has indwelling Black placed from the outside hospital that is patent and draining clear urine. Creatinine has down trended to 2.6 from 5.6. -Continue indwelling Black do not remove-Trend creatinine-Discussed patient to follow-up with our clinic 01/30/2023 for nurse visit catheter removal and CIC teaching for which he was amenable to trying Crystal Alberts MD -covering for Dr. Jones [facility] at 1948 RPT #:[id number] OF REPORTYVWzaktoggzzvu2929-00-42K55:40:00G.PDOC2 4160269-6729CPZrjlsugqs for patient qpxlGFFTABRGTOOVDG4827-56-71P73:48:32 [facility] 2023-01-21 10:48:00 [id number] vzE8uc+VWW9n0YUlie7z8c2WUV808 ZxxULyJavF0J4pXfL+1WnRlTq0n8257-99-43P08:48:00 [facility] ([facility])History Physical - AdultREPORT#:[id number] REPORT STATUS: SignedREPORT INITIALIZATION DATE:01/21/23 TIME: 1048 PATIENT: MATHEW CASTILLO UNIT #: [id number]#: [id number] ROOM/BED: 5507-1DOB: [birth year] AGE: 62 SEX: M ATTEND: Salinas Alba I [facility] AUTHOR: Sofia Cheng NPREPT SERVICE DT/TIME: 01/21/23 1048* ALL edits or amendments must be made on the electronic/computer document * History of Present Illness HPIChief complaint:Acute kidney injuryUrinary retentionHPI: 62-year-old male with last medical history of, BPH-s/p UroLift 01/03/2023, schizophrenia was transferred from [facility] ER with acute kidney injury and [...] range of motion, normal sensory, normal motor functionNeuro/PRODUCTION SUPERINTENDENT HYDRO: alert, oriented X 3Skin: dry, intact, no [...] (Auto) (14.0 - 32.0 %) 7.1 L [place] % (Auto) (4.8 - 9.0 %) 8.1 Eos % (Auto) (0.3 - 3.7 %) 0.4 Baso % (Auto) (0.0 - 2.0 %) 0.1 Neut # (Auto) (2.0 - 7.6 x10 3/uL) 9.37 H Lymph # (Auto) (1.0 - 3.8 x10 3/uL) 0.79 L [place] # (Auto) (0.1 - 0.8 x10 3/uL) [...] range of motion, normal sensory, normal motor functionNeuro/PRODUCTION SUPERINTENDENT HYDRO: alert, oriented X 3Skin: dry, intact, no gross abnormalitiesPsychiatry: Mild anxiety Diagnosis, Assessment Plan Free Text DxA P NotesFree Text DxA P Notes:Assessment:62-year-old male with last medical history of, BPH-s/p UroLift 01/03/2023, schizophrenia was transferred from [facility] ER with acute kidney injury and [...] clinical course at 0300 at 1108 RPT #:[id number] OF REPORTHPHistory and physical ybscxaeqglc9455-99-67H05:48:00G.YJXY04811780-0050 AVAvailable for patient wavqTKIQZAYVFKFUDC0809-77-38L83:00:45 [facility] 2023-01-21 05:27:00 [id number]/Lisa oOHCuS0gYF+/E0lcwOVUVB/wjkHzc bdqU84BcDhsBI13SXm8sk5EPs2M3661-15-65S66:27:00 [facility] REPORTREPORT#:[id number] REPORT STATUS: SignedDATE:01/21/23 TIME: 526 PATIENT: MATHEW CASTILLO UNIT #: [id number]#: [id number] [address] SEX: M PCP PHYS: Lakhwinder Guillermo MDSERVICE AUTHOR: Elizabeth Davenport APRNNP * ALL edits or amendments must be made on the electronic/computer document * Elizabeth Davenport 01/21/23 0527:HPI-General Illness Free Text HPI NotesFree Text HPI Qmyno89-aunx-zyg male with PMH as listed below presents to the ER as a transfer from [facility] for diagnoses of ARF, urinary retention. Patient presented to the ER for evaluation of abdominal pain and urine retention that started 1 week ago after having his black catheter removed. A 14fr coude catheter was placed. Diagnostic w/u noted WBC of 14, creatinine 5.6, GFR 11, QEM733. 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 He denies any additional symptoms such as recentfever, chest pain, shortness of breath, N/V/D/C, testicular pain or any other symptoms. GeneralInitial Greet Date/Time 01/21/23 0514PCPhacktan, uroAMIN, PCP, [facility] PresentationChief Complaint __ (urine retention)Hx Obtained [...] No palpable masses or pulsatile masses. Negative [place] Sign. [facility]GU: Indwelling Black, straw-colored, non-cloudy urine, [...] (Auto) (14.0 - 32.0 %) 7.1 L [place] % (Auto) (4.8 - 9.0 %) 8.1 Eos % (Auto) (0.3 - 3.7 %) 0.4 Baso % (Auto) (0.0 - 2.0 %) 0.1 Neut # (Auto) (2.0 - 7.6 x10 3/uL) 9.37 H Lymph # (Auto) (1.0 - 3.8 x10 3/uL) 0.79 L [place] # (Auto) (0.1 - 0.8 x10 3/uL) [...] kidney injury)Secondary Impressions: Obstructive uropathy [facility] Name Salinas Alba MD [facility] Physician Hospitalist Request Time 0623 [...] the patient along with involvement of the PA/SUPERVISOR PLASTERING. I agree with the PA/internet webmaster findings and plan. I have performed all aspects of MDM as documented including: evaluation of the patient/patient's condition(s), review and analysis of available data, and determinationof risk of patient management decisions. at 2244 at 1025RPT #:[id number] OF REPORTEDEmergen department yrlpea9759-27-87N45:27:00G.MIHZ06491692-8648AEYrh ilable for patient qzotXHXZKPDHXUHBFP9079-63-45A80:46:19 [facility] 2023-01-15 09:31:00 [id number] UeSnztYokbNmw62JEzHOT/l6h4uMS 33pdlucWCI1K5N3IuJZ1C414JLC3132-76-11T92:31:99195 1-[address] [address] PATIENT NAME: MATHEW CASTILLO ADMIT DATE: 01/06/23ACCOUNT NO: [id number] ROOM NO: GC146 AGE: 62 REPORT TYPE: 360 - QUERY RESPONSE DOCUMENT SEX: M ADMITTING PHYSICIAN:Salinas Alba MD ATTENDING PHYSICIAN:Salinas Alba MD Provider Query QUERY TEXT: Clarification Rule In Rule Out 360MD Query related questions should be directed to: [facility] Coding Query Help-line Based on your clinical [...] AM at 0931 PATIENT NAME: MATHEW CASTILLO noteG.[id number] for patient uijePSWFODVNMWTHIN9452-20-09L03:31:59 [facility] 2023-01-11 17:08:00 [id number] 9WrdRTo+CC1xrtYOPdEwlw8dtgieq 7G2cg2rTLtEdNBeHWRvEl9bAj8V3827-98-76P50:08:61634 7-0170 [place] [address] PATIENT NAME: MATHEW CASTILLO ADMIT DATE: 01/06/23ACCOUNT NO: [id number] ROOM NO: [facility] AGE: 62 REPORT TYPE: PROGRESS NOTE [...] admitted through Emergency Room to [facility] facility [facility], and from there, he was transferred to [facility]. The patient PATIENT NAME: MATHEW CASTILLO was evaluated by Urology Service. He was placed on broad-spectrum IVantibiotics. His urine culture has shown growth of Pseudomonas aeruginosa and 1out of 2 blood culture has shown growth of Enterococcus faecalis. TheEnterococcus faecalis growing in 1 blood culture, likely could be eithercontaminant or customer care representative of transient bacteremia. Clinically is doingfairly well. His urine culture has shown growth of Pseudomonas aeruginosa. Fornow, we will continue him on the present treatment, and once he is ready to bedischarged home, we will switch him to oral ciprofloxacin. Discussed with thepatient's nursing staff and with MARLENA Cheng. Dictated By: Skip Jaffe MD Date Dictated: 01/11/2023 17:08:17Date Transcribed: 01/11/2023 18:52:55HA/Nicole #: [id number] ID: [id number] Authenticated and Edited by Skip Jaffe MD On 01/22/23 5:19:12 AM at 0520 PATIENT NAME: MATHEW CASTILLO akbg2950-77-88I11:52:00G.IFY65892652-4120FWUvzpiy ble for patient zhjnKTNCKTUPCRNEMH8077-06-35N60:21:34 [facility] 2023-01-10 21:43:00 [id number]+AWu gyT6uCe1pxb7XI0GOo+PPQmmBxkgp tDmwWHU8FycuscR42ovUHxY1PiM1985-05-21S82:43:00 [facility])Internal Medicine Prog. NoteREPORT#:[id number] REPORT STATUS: SignedREPORT INITIALIZATION DATE:01/10/23 TIME: 2142 PATIENT: MATHEW CASTILOL UNIT #: [id number]#: [id number] [address] [birth year] AGE: 62 SEX: M ATTEND: Salinas Alba I [facility] AUTHOR: Sofia Cheng NPREPT SERVICE DT/TIME: 01/10/232142* ALL edits or amendments must be made on the electronic/computer document * SubjectiveChief complaint:HematuriaHPI:62-year-old male with last medical history of, BPH, s/p bladder lift yesterday by Dr. Jones transferred from [place] for urology evaluation secondary tohematuria after bladder irrigation failed. pt was seen and evaluated by Dr. 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 Last admitted to [facility] on 10/16/22 with urinary retention. Abnormal [...] MLSodium Chloride (SODIUM CHLORIDE 0.9%) 1,000 ML .[id number] IV (DC) Sodium Chloride (SODIUM CHLORIDE 0.9%) [...] range of motion, normal sensory, normal motor functionNeuro/PRODUCTION SUPERINTENDENT HYDRO: alert, oriented X 3Skin: dry, intact, no gross abnormalitiesPsychiatry: no hallucinations, normal affect, normal judgment/insight, normal mood, not homicidal, not suicidal Free Text DxA P NotesFree text DxA P notes:Assessment:62-year-old male with last medical history of, BPH, s/p bladder lift yesterday by Dr. Jones transferred from [place] for urology evaluation secondary tohematuria after bladder irrigation failed. pt was seen and evaluated by Dr. 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 Last admitted to [facility] on 10/16/22 with urinary retention.Abnormal labs: [...] electrolytesRepeat labsFurther recommendation based on patient's clinical umqheu2201/06/2023Vital signs within normal limitsBlood culture shows Enterococcus [...] urology outpatient at 0024 at 0814 RPT #:[id number] OF REPORTPRProgress [id number]:43:00G.[id number] able for patient [id number]:25:19 HCACL 2023-01-10 20:39:00 [id number]/Z+Wz FpOK0nrH1FwTPTLktSUwxni5AAZYI gCTufCELL1wrk4eT4LMTMm3c+mv8113-26-87B81:39:00 [facility] ([facility])Infectious Dis. Progress NoteREPORT#:[id number] REPORT STATUS: SignedREPORT INITIALIZATION DATE:01/10/23 TIME: 2038 PATIENT: MATHEW CASTILLO UNIT #: [id number]#: [id number] [address] AGE: 62 SEX: M ATTEND: [...] home on oral ciprofloxacin. at 0244 RPT #:[id number] OF REPORTPRProgress yrgj0656-89-93S90:39:00G.DAJD41435779-5462RNGzyak able for patient awckFINXMFJXZKNYZR9854-02-26X47:44:38 [facility] 2023-01-10 08:39:00 [id number] EM+NNpSp0/WML78Md2Kkkd/zJTMUe eDhGbYsHmLxzbogIOitJJ/C8c1i7625-39-07C16:39:76308 6-0055 [place] [address] PATIENT NAME: MATHEW CASTILLO ADMIT DATE: 01/06/23ACCOUNT NO: [id number] ROOM NO: [facility] AGE: 62 REPORT TYPE: PROGRESS NOTE [...] Date Dictated: 01/10/2023 08:39:27Date Transcribed: 01/10/2023 09:42:11HA/KYLE Wnvedxn ID: [id number] Authenticated and Edited by Skip Jaffe MD On 01/22/23 5:19:04 AM at 0520 PATIENT NAME: MATHEW CASTILLO ylfd7263-82-51C53:42:00G.FSX20932056-8931BFPyxule ble for patient xktiNLUGOJTBJWKYKY1634-05-46H72:21:54 [facility] 2023-01-09 22:29:00 [id number] jS1Rai7tZGZwc250fMhA8YehkzWwn mkCB90moOGyZ7AJNSOR97nlWh3q1187-33-89Z21:29:00 [facility] ([facility])Internal Medicine Prog. NoteREPORT#:[id number] REPORT STATUS: SignedREPORT INITIALIZATION DATE:01/09/23 TIME: 2228 PATIENT: MATHEW CASTILLO UNIT #: [id number]#: [id number] [address] AGE: 62 SEX: M ATTEND: Salinas Alba I MDABRADEN AUTHOR: Sofia Cheng NPREPT SERVICE DT/TIME: 01/09/232228* ALL edits or amendments must be made on the electronic/computer document * SubjectiveChief complaint:HematuriaHPI:62-year-old male with last medical history of, BPH, s/p bladder lift yesterday by Dr. Jones transferred from [place] for urology evaluation secondary tohematuria after bladder irrigation failed. pt was seen and evaluated by Dr. 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 Last admitted to [facility] on 10/16/22 with urinary retention. Abnormal [...] MLSodium Chloride (SODIUM CHLORIDE 0.9%) 1,000 ML .O00A32T IV Sodium Chloride (SODIUM CHLORIDE 0.9%) 1,000 [...] % (Auto) (14.0 - 32.0 %) 20.8 [place] % (Auto) (4.8 - 9.0 %) 7.7 Eos % (Auto) (0.3 - 3.7 %) 8.1 H Baso % (Auto) (0.0 - 2.0 %) 0.7 Neut # (Auto) (2.0 - 7.6 x10 3/uL) 4.51 Lymph # (Auto) (1.0 - 3.8 x10 3/uL) 1.51 [place] # (Auto) (0.1 - 0.8 x10 3/uL) [...] range of motion, normal sensory, normal motor functionNeuro/PRODUCTION SUPERINTENDENT HYDRO: alert, oriented X 3Skin: dry, intact, no gross abnormalitiesPsychiatry: no hallucinations, normal affect, normal judgment/insight, normal mood, not homicidal, not suicidal Free Text DxA P NotesFree text DxA P notes:Assessment:62-year-old male with last medical history of, BPH, s/p bladder lift yesterday by Dr. Jones transferred from [place] for urology evaluation secondary tohematuria after bladder irrigation failed. pt was seen and evaluated by Dr. 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 Last admitted to [facility] on 10/16/22 with urinary retention.Abnormal labs: [...] electrolytesRepeat labsFurther recommendation based on patient's clinical ryyvgd9901/06/2023Vital signs within normal limitsBlood culture shows Enterococcus [...] as neededContinue medications and present care at 0810 at 1240 RPT #:[id number] OF REPORTPRProgress wohw1935-10-39S42:29:00G.NLJY74894759-2906IBLzzbi able for patient zrefWURHTFAKATITFN1042-62-69E34:59:46 [facility] 2023-01-09 19:20:00 [id number] +dcp2FZIvuPzRaOwOrwrnxM3DM0XM 0WtlZJe4SEoTqtV4CHBFyOrXnMw3740-31-60T85:20:00 [facility] ([facility])Infectious Dis. Progress NoteREPORT#:[id number] REPORT STATUS: SignedREPORT INITIALIZATION DATE:01/09/23 TIME: 1919 PATIENT: MATHEW CASTILLO UNIT #: [id number]#: [id number] [address] AGE: 62 SEX: M ATTEND: [...] him home on oral ciprofloxacin. at 0432 [facility] #:[id number] OF REPORTPRProgress ychs6077-52-48P24:20:00G.QLNV27351586-1713ZKOcqne able for patient gglmFQGWEMMSJVYEOL3779-26-71R74:33:11 [facility] 2023-01-09 18:36:00 [id number] GoYrVq5V7tNHU6HzFlpSL6s6LyQlf 5bUABPy3w7EL4/a7haIoaxu07eQ6547-20-41T33:36:40863 5-0330 [place] [address] PATIENT NAME: MATHEW CASTILLO ADMIT DATE: 01/06/23ACCOUNT NO: [id number] ROOM NO: [facility] AGE: 62 REPORT TYPE: PROGRESS NOTE [...] was PATIENT NAME: MATHEW CASTILLO admitted to [place], and [facility] The patient was on admission, [...] MD Date Dictated: 01/09/2023 18:36:08Date Transcribed: 01/09/2023 20:19:12/[facility] [place]tvzxm [place]: [id number] Authenticated and Edited by Skip Jaffe MD On 01/22/23 5:18:55 AM at 0520 PATIENT NAME: MATHEW CASTILLO htuy7663-48-80B56:19:00G.PIW97508662-1009MEMbrtiz ble for patient avczIVRSXFNNDCZWXI9663-63-39A17:21:54 [facility] 2023-01-09 11:30:00 [id number] USkp0KoGM4l5sKj0+zx7C0cplIK9R HyLOAot64NFNtBFF698Uryu6Wzq2878-09-06A87:30:00 [facility] ([facility])Urology Progress NoteREPORT#:[id number] REPORT STATUS: SignedREPORT INITIALIZATION DATE:01/09/23 TIME: 1129 PATIENT: MATHEW CASTILLO UNIT #: [id number]#: [id number] [address]: [address] AGE: 62 SEX: M ATTEND: Salinas [...] as planned in clinic at 1131 RPT #:[id number] OF REPORTPRProgress qazj5958-70-23P01:30:00G.UEKO62475605-3704RSSfnsy able for patient hiwyPVXZIHIXXGBMDQ9044-20-48F57:32:06 [facility] 2023-01-08 21:19:00 [id number] yom/ZlmVBFipusHma/jc1nOiwxO8m xhncVIfCmprIDsfIfy5igNbruwq7560-63-76P38:19:00 [facility] Prog. NoteREPORT#:[id number] REPORT STATUS: SignedREPORT INITIALIZATION DATE:01/08/23 TIME: 2118 PATIENT: MATHEW CASTILLO UNIT #: [id number]#: [id number] [address] AGE: 62 SEX: M ATTEND: Salinas Alba I [facility] AUTHOR: Sofia Cheng NPREPT SERVICE DT/TIME: 01/08/232118* ALL edits or amendments must be made on the electronic/computer document * SubjectiveChief complaint:HematuriaHPI:62-year-old male with last medical history of, BPH, s/p bladder lift yesterday by Dr. Jones transferred from [place] for urology evaluation secondary tohematuria after bladder irrigation failed. pt was seen and evaluated by Dr. 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 Last admitted to [facility] on 10/16/22 with urinary retention. Abnormal [...] MLSodium Chloride (SODIUM CHLORIDE 0.9%) 1,000 ML .J82O60Y IV Sodium Chloride (SODIUM CHLORIDE 0.9%) 1,000 [...] % (Auto) (14.0 - 32.0 %) 22.3 [place] % (Auto) (4.8 - 9.0 %) 6.9 Eos % (Auto) (0.3 - 3.7 %) 9.9 H Baso % (Auto) (0.0 - 2.0 %) 0.9 Neut # (Auto) (2.0 - 7.6 x10 3/uL) 3.89 Lymph # (Auto) (1.0 - 3.8 x10 3/uL) 1.46 [place] # (Auto) (0.1 - 0.8 x10 3/uL) [...] range of motion, normal sensory, normal motor functionNeuro/PRODUCTION SUPERINTENDENT HYDRO: alert, oriented X 3Skin: dry, intact, no gross abnormalitiesPsychiatry: no hallucinations, normal affect, normal judgment/insight, normal mood, not homicidal, not suicidal Free Text DxA P NotesFree text DxA P notes:Assessment:62-year-old male with last medical history of, BPH, s/p bladder lift yesterday by Dr. Jones transferred from [place] for urology evaluation secondary tohematuria after bladder irrigation failed. pt was seen and evaluated by Dr. 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 Last admitted to [facility] on 10/16/22 with urinary retention.Abnormal labs: [...] electrolytesRepeat labsFurther recommendation based on patient's clinical xbpyxc1401/06/2023Vital signs within normal limitsBlood culture shows Enterococcus [...] present care at 2359 at 1240 RPT #:[id number] OF REPORTPRProgress hbqw6777-00-47M79:19:00G.PFKD27741505-1052VOStyau able for patient uosmWKQLYXWPZQMPSP6035-08-86Q02:59:46 [facility] 2023-01-08 18:59:00 [id number] 1Z+di6JUIQc9Y+QBu/h041uxmxCCK fsZcQtFzbhx6dfcD4TvK/E9WGX42202-44-17O61:59:00 [facility] ([facility])Infectious Dis. Progress NoteREPORT#:[id number] REPORT STATUS: SignedREPORT INITIALIZATION DATE:01/08/23 TIME: 1858 PATIENT: MATHEW CASTILLO UNIT #: [id number]#: [id number] [address] AGE: 62 SEX: M ATTEND: [...] home on oral ciprofloxacin. at 0321 RPT #:[id number] OF REPORTPRProgress vcnc8492-92-41J33:59:00G.NMOU18903385-3368SYYugnj able for patient bhlyHYNJYITXLSPCQP4095-62-66F70:21:51 [facility] 2023-01-08 18:22:00 [id number] BUhYL73tqze4QAlLH94UtpbqimbRv /fmabXgR9vs3fobJeCAaB61kavp7720-61-41N25:22:52983 4-031 [place] [address] PATIENT NAME: MATHEW CASTILLO ADMIT DATE: 01/06/23ACCOUNT NO: [id number] ROOM NO: [facility] AGE: 62 REPORT TYPE: PROGRESS NOTE [...] 205,000. Serum sodium is 138, potassium 4.0, tuogyxzj720, bicarbonate 26, glucose 91, BUN 14, creatinine 0.8, estimated GFR is 99.calcium is 7.8, blood culture 1 out of 2 has shown growth of Enterococcusfaecalis, which is pansensitive. Another blood culture so far is negative at 72hours of incubation. Urine culture has shown growth of Pseudomonas pcfibpebeu98,000 to 50,000 colony forming units. Currently, the [...] Dictated: 01/08/2023 18:22:31Date Transcribed: 01/08/2023 19:55:35/Trina #: [id number] ID: [id number] Authenticated and Edited by Skip Jaffe MD On 01/22/23 5:18:46 AM at 0520 PATIENT NAME: MATHEW CASTILLO msad0105-62-74K77:55:00G.RTZ99227489-2837MENestpt ble for patient mknnORLSIXQDPDYDDY5738-15-29L45:21:54 [facility] 2023-01-08 17:58:00 [id number] v+Rldv6sbMP+bn/058IO0ZH2L+hQy ZupBe4TcQ5GFz7Lw+i8Q+PY5gRM7874-66-42H21:58:00 [facility] ([facility])Urology Progress NoteREPORT#:[id number] REPORT STATUS: SignedREPORT INITIALIZATION DATE:01/08/23 TIME: 1758 PATIENT: MATHEW CASTILLO UNIT #: [id number]#: [id number] [address] AGE: 62 SEX: M ATTEND: [...] % (Auto) (14.0 - 32.0 %) 22.3 [place] % (Auto) (4.8 - 9.0 %) 6.9 Eos % (Auto) (0.3 - 3.7 %) 9.9 H Baso % (Auto) (0.0 - 2.0 %) 0.9 Neut # (Auto) (2.0 - 7.6 x10 3/uL) 3.89 Lymph # (Auto) (1.0 - 3.8 x10 3/uL) 1.46 [place] # (Auto) (0.1 - 0.8 x10 3/uL) [...] improved - discharge with black tomorrow at 0762 RPT #:[id number] OF REPORTPRProgress cphr3163-07-15M54:58:00G.EICQ03137799-0904TIZtngp able for patient gztoSWACDLIOOBOGAK4420-59-13K98:00:52 [facility] 2023-01-08 02:42:00 [id number]/h/v PESgJY8G5WguiveghN0+Dmu+ff7uq RQjpdtUiMBa+1EKAp8A/T4ytxsx4449-87-58T18:42:00 [facility] ([facility])Infectious Dis. Progress NoteREPORT#:[id number] REPORT STATUS: SignedREPORT INITIALIZATION DATE:01/08/23 TIME: 024 PATIENT: MATHEW CASTILLO UNIT #: [id number]#: [id number] [address] AGE: 62 SEX: M ATTEND: [...] patient on IV Zosyn. at 0353 RPT #:[id number] OF REPORTPRProgress kpuc6942-01-86L25:42:00G.YYUZ94725109-5407NQYrfaj able for patient enugATEIVHKBZHTVMX8406-82-82C25:54:17 [facility] 2023-01-07 21:05:00 [id number] Q+VtSQ3D9H3MbTPu8apLJy5QrOEtK zLGvAKnoS3gwOfDbKcC0qxb2+7O8012-77-99N83:05:00 [facility] ([facility])Internal Medicine Prog. NoteREPORT#:[id number] REPORT STATUS: SignedREPORT INITIALIZATION DATE:01/07/23 TIME: 2104 PATIENT: MATHEW CASTILLO UNIT #: [id number]#: [id number] [address] AGE: 62 SEX: M ATTEND: Salinas Alba AUTHOR: Sofia Cheng NPREPT SERVICE DT/TIME: 01/07/232104* ALL edits or amendments must be made on the electronic/computer document * SubjectiveChief complaint:HematuriaHPI:62-year-old male with last medical history of, BPH, s/p bladder lift yesterday by Dr. Jones transferred from [place] for urology evaluation secondary tohematuria after bladder irrigation failed. pt was seen and evaluated by Dr. 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 Last admitted to [facility] on 10/16/22 with urinary retention. Abnormal [...] MLSodium Chloride (SODIUM CHLORIDE 0.9%) 1,000 ML .G39Z63F IV Sodium Chloride (SODIUM CHLORIDE 0.9%) 1,000 [...] % (Auto) (14.0 - 32.0 %) 21.2 [place] % (Auto) (4.8 - 9.0 %) 7.2 Eos % (Auto) (0.3 - 3.7 %) 10.4 H Baso % (Auto) (0.0 - 2.0 %) 0.8 Neut # (Auto) (2.0 - 7.6 x10 3/uL) 3.56 Lymph # (Auto) (1.0 - 3.8 x10 3/uL) 1.26 [place] # (Auto) (0.1 - 0.8 x10 3/uL) [...] range of motion, normal sensory, normal motor functionNeuro/PRODUCTION SUPERINTENDENT HYDRO: alert, oriented X 3Skin: dry, intact, no gross abnormalitiesPsychiatry: no hallucinations, normal affect, normal judgment/insight, normal mood, not homicidal, not suicidal Free Text DxA P NotesFree text DxA P notes:Assessment:62-year-old male with last medical history of, BPH, s/p bladder lift yesterday by Dr. Jones transferred from [place] for urology evaluation secondary tohematuria after bladder irrigation failed. pt was seen and evaluated by Dr. 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 Last admitted to [facility] on 10/16/22 with urinary retention.Abnormal labs: [...] electrolytesRepeat labsFurther recommendation based on patient's clinical hfvufu8901/06/2023Vital signs within normal limitsBlood culture shows Enterococcus [...] present care at 2222 at 0742 RPT #:[id number] OF REPORTPRProgress wtpn7131-23-01X16:05:00G.BESV74492998-0200VLNebhw able for patient kqjgZMVXIVARZACFFH7819-55-62J40:22:45 [facility] 2023-01-07 16:17:00 [id number]+UwhS07k HgW33tIqvD8pFsjUpR9Wt1/Rh0T6T xTSrJh++g07IPq9l2Z3702mysyV9226-03-74Y79:17:00 [facility] Progress NoteREPORT#:[id number] REPORT STATUS: SignedREPORT INITIALIZATION DATE:01/07/23 TIME: 1616 PATIENT: MATHEW CASTILLO UNIT #: [id number]#: [id number] [address] AGE: 62 SEX: M ATTEND: Salinas Alba I [facility] AUTHOR: Dave Jones MDREPT SERVICE DT/TIME: 01/07/231616* [...] - discharge with black tomorrow at 1617 [facility] #:[id number] OF REPORTPRProgress wwct4331-27-71M27:17:00G.TEXJ54315809-3328VUYwcey able for patient wuzvRILXYMDDFBEMKP5340-65-80R89:18:01 [facility] 2023-01-07 05:20:00 [id number] PMfou0IfK2ke4N9GORTudX1Y7sUSV QwYmMMsWBSNvvIZtZE3UGWpTrNa8917-73-08N80:20:17575 3-0041 [place] [address] PATIENT NAME: MATHEW CASTILLO ADMIT DATE: 01/06/23ACCOUNT NO: [id number] ROOM NO: [facility] AGE: 62 REPORT TYPE: PROGRESS NOTE [...] 01/07/2023 05:20:31Date Transcribed: 01/07/2023 05:56:47 DORADO/Nicole #: [id number] ID: [id number] Authenticated and Edited by Skip Jaffe MD On 01/22/23 5:18:20 AM at 0520 PATIENT NAME: MATHEW CASTILLO eytn6910-44-24R88:56:00G.KVC95091069-5291IXPibldz ble for patient zohzQERRHSHDWWHEET2532-35-37Y21:21:33 [facility] 2023-01-06 21:39:00 [id number]/Dl9a5D iEFu8D7d89oWSDTetSf8cJ2S+HZ27 bp8k0W55dLF8PP5WAI1Nbsh8Nnp1074-59-51J97:39:00 [facility] Prog. NoteREPORT#:[id number] REPORT STATUS: SignedREPORT INITIALIZATION DATE:01/06/23 TIME: 2138 PATIENT: MATHEW CASTILLO UNIT #: [id number]#: [id number] [facility] AGE: 62 SEX: M ATTEND: Salinas Alba AUTHOR: Sofia Cheng NPREPT SERVICE DT/TIME: 01/06/232138* ALL edits or amendments must be made on the electronic/computer document * SubjectiveChief complaint:HematuriaHPI:62-year-old male with last medical history of, BPH, s/p bladder lift yesterday by Dr. Jones transferred from [place] for urology evaluation secondary tohematuria after bladder irrigation failed. pt was seen and evaluated by Dr. 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 Last admitted to [facility] on 10/16/22 with urinary retention. Abnormal [...] MLSodium Chloride (SODIUM CHLORIDE 0.9%) 1,000 ML .B08G49M IV Sodium Chloride (SODIUM CHLORIDE 0.9%) 1,000 [...] (Auto) (14.0 - 32.0 %) 11.8 L [place] % (Auto) (4.8 - 9.0 %) 7.5 Eos % (Auto) (0.3 - 3.7 %) 3.2 Baso % (Auto) (0.0 - 2.0 %) 0.4 Neut # (Auto) (2.0 - 7.6 x10 3/uL) 7.43 Lymph # (Auto) (1.0 - 3.8 x10 3/uL) 1.14 [place] # (Auto) (0.1 - 0.8 x10 3/uL) [...] range of motion, normal sensory, normal motor functionNeuro/PRODUCTION SUPERINTENDENT HYDRO: alert, oriented X 3Skin: dry, intact, no gross abnormalitiesPsychiatry: no hallucinations, normal affect, normal judgment/insight, normal mood, not homicidal, not suicidal Free Text DxA P NotesFree text DxA P notes:Assessment:62-year-old male with last medical history of, BPH, s/p bladder lift yesterday by Dr. Jones transferred from [place] for urology evaluation secondary tohematuria after bladder irrigation failed. pt was seen and evaluated by Dr. 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 Last admitted to [facility] on 10/16/22 with urinary retention.Abnormal labs: [...] electrolytesRepeat labsFurther recommendation based on patient's clinical ncakpv2201/06/2023Vital signs within normal limitsBlood culture shows Enterococcus speciesUrine culture grows gram-negative teodoro-identification and sensitivity pendingHematuria is improved.Wean CBI as tolerated per uroContinue IV antibiotics Zosyn per ID, ceftriaxone is discontinuedStarted on Cogentin, still on tamsulosin.Monitor for further bleedingPain medications as neededFollow-up cultures, labs, continue medications and supportive care at 0015 at 0740 RPT #:[id number] OF REPORTPRProgress mmlr6452-72-47V72:39:00G.JZXU11018063-3342WFFonva able for patient xmzxOYZTTXGCJTZDRP2858-52-76D33:16:29 [facility] 2023-01-06 19:39:00 P19636181434PhsV6MkQ fKZsY3p7BaryBW8337pg14HoH47Kr PQ/I+iFWzviO9tF3EVeu+7O6Rb48616-79-07X55:39:00 [facility] ([facility])Urology Progress NoteREPORT#:[id number] REPORT STATUS: SignedREPORT INITIALIZATION DATE:01/06/23 TIME: 1938 PATIENT: MATHEW CASTILLO UNIT #: [id number]#: [id number] [address] AGE: 62 SEX: M ATTEND: [...] (Auto) (14.0 - 32.0 %) 11.8 L [place] % (Auto) (4.8 - 9.0 %) 7.5 Eos % (Auto) (0.3 - 3.7 %) 3.2 Baso % (Auto) (0.0 - 2.0 %) 0.4 Neut # (Auto) (2.0 - 7.6 x10 3/uL) 7.43 Lymph # (Auto) (1.0 - 3.8 x10 3/uL) 1.14 [place] # (Auto) (0.1 - 0.8 x10 3/uL) [...] wean cbi as tolerated at 1941 RPT #:[id number] OF REPORTPRProgress vboh1854-35-44Z46:39:00G.FEAQ29459929-9474EJMiuwt able for patient witiSFLDEGIUZHEUVR5398-65-96F60:41:57 [facility] 2023-01-06 19:19:00 [id number] daekAB2GB8lWFuCngDxtoLhGuWNsN KEvPOu8Mq1QPvqSWgntas+fIEBo4300-54-68Z34:19:00 [facility] ([facility])Infectious Dis. Progress NoteREPORT#:[id number] REPORT STATUS: SignedREPORT INITIALIZATION DATE:01/06/23 TIME: 1918 PATIENT: MATHEW CASTILLO SINCERE UNIT #: [id number]#: [id number] [facility] AGE: 62 SEX: M ATTEND: Salinas [...] [place] [address] colony-forming units of the Gram-negative rods. Identification and susceptibility is pending. Keep the patient on IV Zosyn. at 0411 RPT #:[id number] OF REPORTPRProgress cdhm2319-03-79Z40:19:00G.LSDQ57851818-0579ZTZgkyz able for patient osrcUEYQWEMZJELDDL0641-17-46O78:11:25 [facility] 2023-01-06 17:40:00 [id number] 68EgwhjfQGTIWu0+rv7ydbcXBIDh7 x+lEefDF7debrxMKKNdXOfcZBpC2425-37-13D09:40:31748 2-[address] [address] PATIENT NAME: MATHEW CASTILLO ADMIT DATE: 01/06/23ACCOUNT NO: [id number] ROOM NO: GC146 AGE: 62 REPORT TYPE: CONSULTATION REPORT SEX: M ADMITTING PHYSICIAN:Salinas Alba MD ATTENDING PHYSICIAN:Salinas Alba MD CONSULTATION DATE: 01/05/2023 INFECTIOUS DISEASE CONSULTATION The patient examined, chart reviewed, old records reviewed. Thank you, Dr. Michael, for asking me to evaluate Mr. Mathew Castillo. HISTORY OF PRESENT ILLNESS: Mr. Castillo is known to me from his recent hospitalization at [facility] in 10/2022. He is a 62-year-old male with a past medical history of schizophrenia, benign prostatic hypertrophy with recurrent urinary symptomatology, history of previous episode of urinary retention due to bladder neck obstruction requiring indwelling Black catheter placement and hospitalization in October of 2022. The patient lives in [place] and he had an outpatient prostate procedure done by Dr. Dave Jones with UroLift on Friday01/03/2023 and was discharged home on the same day. The patient went back to [place]. However, subsequently, he started to notice ladan hematuria on Friday and had no other constitutional symptoms including fever or chills. The patient because of worsening hematuria decided to go to the hospital. He went to hospital in [place] and he was told to follow up with the urologist and he was transferred to the [facility]. The patient at present is [...] is single. He lives with his daughterjailene [place]. The patient has been a longtime smoker and continues to smoke. No history of IV drug use, alcohol use, or substance abuse. 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 [place] admission, [place] [address]. The patient had 2 blood cultures done. Urine culture is incubating. ASSESSMENT: The patient with multiple comorbidities including history of benignprostatic hypertrophy with previous episode of urinary retention requiring indwelling Black catheter placement has undergone an UroLift procedure on 01/03/2023, and subsequently was discharged on the same day; however, yesterday he started to have hematuria and was seen at a hospital in [facility] and is transferred to [facility] for further Urology evaluation. 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 today, and he is empirically started on [...] Dictated: 01/06/2023 17:40:46Date Transcribed: 01/06/2023 21:28:36ESTRADA/Concepcion #: [id number] ID: [id number] by Skip Jaffe MD On 01/22/2023 05:17:37 AM at 0517 PATIENT NAME: MATHEW CASTILLO SINCERE :28:00G.AK [id number] for patient bqvsSJIPBHKIAPYMSS4856-94-23O24:18:03 [facility] 2023-01-05 23:00:00 [id number] rfJuWRcleoBUm9W6GOmBbycBFaXkT 3ntTBU0nMUTSGPnYA+A7K/VHet99378-85-60S98:00:00 [facility] ([facility])Infect Disease Consult NoteREPORT#:[id number] REPORT STATUS: SignedREPORT INITIALIZATION DATE:01/05/23 TIME: 2300 PATIENT: MATHEW CASTILLO UNIT #: [id number]#: [id number] [facility] AGE: 62 SEX: M ATTEND: [place] Alba AUTHOR: Skip Jaffe MDREPT SERVICE DT/TIME: 01/05/23 2300* ALL edits or amendments must be made on the electronic/computer document * History of Present IllnessHPI:Thank you for the consultation. Patient's current and old record reviewed. Orders initiated. See full dictated consultation report for further details. Patient is known to our service from his recent hospitalization at [facility] in October of 2022. ASSESSMENT [...] Allergies:No Known Allergies (10/16/22) at 0526 RPT #:[id number] OF REPORTQUOjnnstwylwip9303-61-97G56:00:00G.PDOC2 [id number] for patient ttyqVJFVTWTUVLNUJN7293-61-59L78:27:03 [facility] 2023-01-05 13:05:00 [id number] tNOdWkHrqo9tZBBm08KU/EJ4vC1PG 2L9qBqvUx1Y728TyyUIl5Y9GQvZ1709-52-28R23:05:00 [facility] ([facility])Urology Consult NoteREPORT#:[id number] REPORT STATUS: SignedREPORT INITIALIZATION DATE:01/05/23 TIME: 1305 PATIENT: MATHEW CASTILLO UNIT #: [id number]#: [id number] [facility] AGE: 62 SEX: M ATTEND: Salinas [...] (Auto) (14.0 - 32.0 %) 4.5 L [place]ock[place] % (Auto) (4.8 - 9.0 %) 6.1 Eos % (Auto) (0.3 - 3.7 %) 0.3 Baso % (Auto) (0.0 - 2.0 %) 0.2 Neut # (Auto) (2.0 - 7.6 x10 3/uL) 15.99 H Lymph # (Auto) (1.0 - 3.8 x10 3/uL) 0.82 L Hock[place] # (Auto) (0.1 - 0.8 x10 3/uL) [...] (Auto) (14.0 - 32.0 %) 5.4 L [place] % (Auto) (4.8 - 9.0 %) 5.3 Eos % (Auto) (0.3 - 3.7 %) 0.0 L Baso % (Auto) (0.0 - 2.0 %) 0.2 Neut # (Auto) (2.0 - 7.6 x10 3/uL) 14.77 H Lymph # (Auto) (1.0 - 3.8 x10 3/uL) 0.90 L Hocking # (Auto) (0.1 - 0.8 x10 3/uL) [...] pH (5.0 - 7.0) 7.0 Ur Specific Anderson (1.005 - 1.030) 1.005 Urine Protein (NEGATIVE) [...] Alberts MD[facility] at 1312 RPT #:[id number] OF REPORTZLVwphjtkbcbcz8275-10-06Z58:05:00G.PDOC2 2657812-8712YFBemqsbsjh for patient ztvpWGDWHMYBCLKRAQ2362-02-10Q67:12:53 [facility] 2023-01-05 11:34:00 [id number]/t4gGg 07TfYRFhGpvkr1zKjbesBWjWTbGY0 vmnk+5ibnezamBqEbPxnyALv0Fh3243-21-81D96:34:00 [facility] ([facility])History Physical - AdultREPORT#:[id number] REPORT STATUS: SignedREPORT INITIALIZATION DATE:01/05/23 TIME: 1133 PATIENT: MATHEW CASTILLO UNIT #: [id number]#: [id number] [address] [birth year] AGE: 62 SEX: M ATTEND: Salinas Alba AUTHOR: Sofia Cheng NPREPT SERVICE DT/TIME: 01/05/23 1134* ALL edits or amendments must be made on the electronic/computer document * History of Present Illness HPIChief complaint:HematuriaHPI:62-year-old male with last medical history of, BPH, s/p bladder lift yesterday by Dr. Jones transferred from [place] for urology evaluation secondary tohematuria after bladder irrigation failed. pt was seen and evaluated by Dr. 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 Last admitted to [facility] on 10/16/22 with urinary retention. Abnormal [...] range of motion, normal sensory, normal motor functionNeuro/PRODUCTION SUPERINTENDENT HYDRO: alert, oriented X 3Skin: dry, intact, no [...] (Auto) (14.0 - 32.0 %) 4.5 L Hock[place] % (Auto) (4.8 - 9.0 %) 6.1 Eos % (Auto) (0.3 - 3.7 %) 0.3 Baso % (Auto) (0.0 - 2.0 %) 0.2 Neut # (Auto) (2.0 - 7.6 x10 3/uL) 15.99 H Lymph # (Auto) (1.0 - 3.8 x10 3/uL) 0.82 L Hocking # (Auto) (0.1 - 0.8 x10 3/uL) [...] x10 3/uL) 0.00 01/04 01/04 01/04 2205 2142 2000 Chemistry Sodium (134 - 147 mEq/L) [...] (Auto) (14.0 - 32.0 %) 5.4 L Hock[place] % (Auto) (4.8 - 9.0 %) 5.3 Eos % (Auto) (0.3 - 3.7 %) 0.0 L Baso % (Auto) (0.0 - 2.0 %) 0.2 Neut # (Auto) (2.0 - 7.6 x10 3/uL) 14.77 H Lymph # (Auto) (1.0 - 3.8 x10 3/uL) 0.90 L Hocking # (Auto) (0.1 - 0.8 x10 3/uL) [...] pH (5.0 - 7.0) 7.0 Ur Specific Anderson (1.005 - 1.030) 1.005 Urine Protein (NEGATIVE) [...] SCAN - CT ABD PELVIS W/CONT 01/04 83 Report Impression - Status: SIGNED Entered: 01/04/2023 5052 IMPRESSION: 1. Prostatomegaly. Decompressed bladder with a Black in place.2. No hydronephrosis. No enhancing renal masses.3. Cholelithiasis and mildly distended gallbladder.4. Moderate hiatal hernia.Impression By: Nick Magaña M.D. Diagnosis, Assessment Plan Free Text DxA P NotesFree Text DxA P Notes:Assessment:62-year-old male with last medical history of, BPH, s/p bladder lift yesterday by Dr. Jones transferred from [place] for urology evaluation secondary tohematuria after bladder irrigation failed. pt was seen and evaluated by Dr. 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 Last admitted to [facility] on 10/16/22 with urinary retention. Abnormal [...] clinical course at 0055 at 0739 RPT #:[id number] OF REPORTHPHistory and physical xxvhcnlfdxl9658-22-18U15:34:00G.RKYP61648527-7619 AVAvailable for patient wdgcAITCNPAWKZSLIU9594-51-59J66:55:31 [facility] 2023-01-05 01:59:00 [id number]/bH9zOpX T97IFuHQsZ5uM3cg+Q+55l8YQ37vk E2nVYwmfhQ3IZM4nGLSiDQJfCgM0354-76-40S36:59:00 [facility] ([facility])Clinical NoteREPORT#:[id number] REPORT STATUS: SignedREPORT INITIALIZATION DATE:01/05/23 TIME: 0159 PATIENT: MATHEW CASTILLO UNIT #: [id number]#: [id number] [address]: [address] AGE: 62 SEX: M ATTEND: Salinas Alba AUTHOR: Sofia Cheng NPREPT SERVICE DT/TIME: 01/05/23 0159* ALL edits or amendments must be made on the electronic/computer document * Clinical NoteNote:Clinical data reviewedOrders placed at 0222 RPT #:[id number] OF REPORTCLClinical tgjd9237-40-40Z86:59:00G.FXEY53713817-7800RUVesew able for patient noqmVWMHRXZSGSQEWX8964-28-34U04:22:53 [facility] 2023-01-04 20:02:00 [id number]+5KrlUg 0i7qraQsS9RsPkelypiKejZBECef4 qsWL2r5PF7x4W3iUwy7ucYik1/p0108-29-35X04:02:00 [facility] ([facility])EMERGENCY PROVIDER REPORTREPORT#:[id number] REPORT STATUS: SignedDATE:01/04/23 TIME: 2001 PATIENT: MATHEW CASTILLO UNIT #: [id number]#: [id number] [address]DSH: 62 SEX: M PCP PHYS: Lakhwinder Guillermo [...] SOB. 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 Tachycardic [...] DecisionHospitalize Hosp Physician Name Salinas Alba MD [facility] Physician Hospitalist Request Time 34 [...] MidLv Saw Pt AloneI have reviewed the PA/SUPERVISOR PLASTERING's note and plan of care. I was available for consultation as needed at all times during the patient's visit in the emergency department. I agree with the clinical impression, plan and disposition. at 2148 at 0552RPT #:[id number] OF REPORTSt. [facility] department jsidgj1112-61-44W90:02:00G.APII38021435-2541UJQss ilable for patient aeayBEKMDBIQQKFVEY2314-32-58Z57:48:19 [facility] 2022-11-19 18:14:00 [id number]/HZ a9/G8zT7DfJU0DdDXdaFAbi4kG6Nz DGj+Nyy1D3P0nmXgVes0ZcfeEAD8342-55-85H63:14:00 [facility] ([facility])Discharge SummaryREPORT#:[id number] REPORT STATUS: SignedDATE:11/19/22 TIME: 1813 PATIENT: MATHEW CASTILLO UNIT #: [id number]#: [id number] [address] [birth year] AGE: 62 SEX: M ATTEND: [...] large amount of urinary retention -Status post Blakc insertion large amount of urine was obtained2. [...] last medical history of, BPH, transferred from [place] for urology evaluation and treatment secondary to [...] range of motion, normal sensory, normal motor functionNeuro/PRODUCTION SUPERINTENDENT HYDRO: alert, oriented X 3Skin: dry, intact, no [...] Care Discharge InstructionsAdditional Discharge Routines: PCP Follow-Up, Executive Assistant To President Follow-Up)( Diet: Regular Follow-up AppointmentsPCP follow up: PCP: Yumiko Geller MD PCP follow up timeframe: In 5 days Special instructions:CAN FU WITH OWN PCPAttending Physician: Attending Physician: Salinas Alba MD Attending physician follow up timeframe: In 1-2 weeks Special instructions:CALL TO SCHEDULE AN APPOINTMENTConsulting provider 1: Provider 1: Dave Jones MD Specialty: Urology Special instructions:FOR REMOVAL OF BLACK at [address] [facility] #:[id number] OF REPORTDSDischarge znldxzn8151-87-01E01:14:00G.RIXM65143578-0530KEZv ailable for patient auprXHNXNJRBAUFNMN1452-16-37G37:32:51 [facility] 2022-10-26 20:52:00 [id number] aoXbrOo+EnndJQNmPtDOQuMp+1/fm 61X6P1FnpyqMR3Yzs7THsTTfSFP7814-13-87K77:52:29518 2-[address] [place], [place] [address] PATIENT NAME: MATHEW CASTILLO ADMIT DATE: 10/16/22ACCOUNT NO: [id number] ROOM NO: [facility] AGE: 62 REPORT TYPE: PROGRESS NOTE SEX: [...] Emergency Room where he was transferred from [place] with acuteurinary retention. He had 3 liters [...] Dictated: 10/26/2022 20:52:41Date Transcribed: 10/26/2022 21:14:58HA/JORGE/Marine #: [id number] ID: [id number] Authenticated and Edited by Skip Jaffe MD On 11/02/22 2:24:00 AM at 0323 PATIENT NAME: MATHEW CASTILLO xquq3188-47-56B60:14:00G.LYE86337568-9443IMHijsnd ble for patient kexeSZONVERSNFALHO5528-87-67G12:24:01 [facility] 2022-10-26 19:14:00 [id number] knLltIbhYVZAJmmMmGmS2Rh5CDouM 1C3YfaIoKUZBYoyDS1dSwQO5mE23340-29-03X86:14:00 [facility])Internal Medicine Prog. NoteREPORT#:[id number] REPORT STATUS: SignedDATE:10/26/22 TIME: 1913 PATIENT: MATHEW CASTILLO UNIT #: [id number]#: [id number] [address] [birth year] AGE: 62 SEX: M ATTEND: Salinas Alba I [facility] AUTHOR: Sofia Cheng SUPERVISOR PLASTERING * ALL edits or amendments must be made on the electronic/computer document * SubjectiveChief complaint:Abdominal distention, hydronephrosisHPI:62-year-old male with last medical history of, BPH, transferred from [place] for urology evaluation and treatment secondary to [...] range of motion, normal sensory, normal motor functionNeuro/PRODUCTION SUPERINTENDENT HYDRO: alert, oriented X 3Skin: dry, intact, no gross abnormalitiesPsychiatry: no hallucinations, normal moodProblem List/A P: 1. Rupture of ureter Free Text DxA P NotesFree text DxA P notes:Assessment:62-year-old male with last medical history of, BPH, transferred from [place] for urology evaluation and treatment secondary to [...] neededRepeat labsFurther recommendation based on patient's clinical hayswk0810/17/2022Vital signs within normal limitsHypokalemia 3.2, hypomagnesemia 1.50Renal [...] controlFollow-up electrolytes and labs, continue medications and dreadvz7510/22/2022Vital signs within normal limits, POC glucose is [...] explained to patient's daughterContinue with current medicationsFall hnatcksifn31/20/2023Stable, POC glucose 154Patient with Black to gravity, [...] supportive care at 2225 at 0830 RPT #:[id number] OF REPORTPRProgress rjui5957-89-16G32:14:00G.IODI33620141-5360LSNbdaw able for patient nlyiEZXBCWHWCWBHVY7488-67-84L94:25:27 [facility] 2022-10-26 13:41:00 [id number] rZdrjifmY1vc9FeHiC8kvt4pH2oca YRn40QNPxpQVBdo3vSO8wkj2R0x8196-64-85G13:41:00 [facility])Nephrology Progress NoteREPORT#:[id number] REPORT STATUS: SignedDATE:10/26/22 TIME: 134 PATIENT: MATHEW CASTILLO UNIT #: [id number]#: [id number] [address] [birth year] AGE: 62 SEX: M ATTEND: [...] urine in his bladder. CT abdomen from [place] showed that the patient has a very [...] urine in his bladder. CT abdomen from [place] showed that the patient has a very [...] above A/P at 1342 at 1813 RPT #:[id number] OF REPORTPRProgress dghz1140-53-69H79:41:00G.GRKE73839454-4968EFDsads able for patient xnwsTZNIJUUGCRXHYI6969-65-71C08:42:46 [facility] 2022-10-25 21:28:00 [id number] 5+hZWfEcoxA9P4BNTFHoqQF46o+y5 K4OZKYWAliVUZxkYq05jn5zz7yX4784-37-56Z78:28:00 [facility] ([facility])Infectious Dis. Progress NoteREPORT#:[id number] REPORT STATUS: SignedDATE:10/25/22 TIME: 2127 PATIENT: MATHEW CASTILLO UNIT #: [id number]#: [id number] ROOM/BED: 6630-1DOB: [birth year] AGE: 62 SEX: M ATTEND: Salinas Alba I [facility] AUTHOR: Skip Jaffe MD * ALL edits [...] new nosocomial acquired infection. at 0256 RPT #:[id number] OF REPORTPRProgress dqbs3712-88-93E47:28:00G.TCWT41098648-0960OALwdow able for patient yyoyDUIHYWDWADPFEZ6612-35-23Y34:57:01 [facility] 2022-10-25 19:13:00 [id number] 6j33ymoLsnuTVRgUUO15fn/nZAFaW zRjOXuq/kaezFAg59kOW1YVcjb66242-47-45C46:13:00 [facility] ([facility]Nephrology Progress NoteREPORT#:[id number] REPORT STATUS: SignedDATE:10/25/22 TIME: 1912 PATIENT: MATHEW CASTILLO UNIT #: [id number]#: [id number] [address] [birth year] AGE: 62 SEX: M ATTEND: Salinas Alba I [facility] AUTHOR: Toby Koehler MD * ALL edits [...] (Auto) (14.0 - 32.0 %) 10.6 L Hocking % (Auto) (4.8 - 9.0 %) 4.4 L Eos % (Auto) (0.3 - 3.7 %) 2.4 Baso % (Auto) (0.0 - 2.0 %) 0.5 Neut # (Auto) (2.0 - 7.6 x10 3/uL) 12.30 H Lymph # (Auto) (1.0 - 3.8 x10 3/uL) 1.60 Hocking # (Auto) (0.1 - 0.8 x10 3/uL) [...] urine in his bladder. CT abdomen from [place] showed that the patient has a very [...] urine in his bladder. CT abdomen from [place] showed that the patient has a very [...] abx per primary team. at 1914 RPT #:[id number] OF REPORTPRProgress plmx6211-96-85F67:13:00G.RKMF10813193-6559QUIqocb able for patient smadEWQAIPIIFOOQFP3309-27-86U56:14:52 [facility] 2022-10-25 19:12:00 [id number] kBH5Xws/zEAxR69VCgzujuyaOw4NP vrdeY8iR2ji2Ig1bud0DJplNveR1888-42-01W15:12:00 [facility] ([facility])Internal Medicine Prog. NoteREPORT#:[id number] REPORT STATUS: SignedDATE:10/25/22 TIME: 1911 PATIENT: MATHEW CASTILLO UNIT #: [id number]#: [id number] ROOM/BED: [facility]30-1DOB: [birth year] AGE: 62 SEX: M ATTEND: Salinas Alba I [facility] AUTHOR: Sofia Cheng NP * ALL edits or amendments must be made on the electronic/computer document * SubjectiveChief complaint:Abdominal distention, hydronephrosisHPI:62-year-old male with last medical history of, BPH, transferred from [place] for urology evaluation and treatment secondary to [...] 10/25 10/25 10/25 10/24 1634 1046 0739 8560 1951 Chemistry Sodium (134 - 147 mEq/L) [...] (Auto) (14.0 - 32.0 %) 10.6 L Hock[place] % (Auto) (4.8 - 9.0 %) 4.4 L Eos % (Auto) (0.3 - 3.7 %) 2.4 Baso % (Auto) (0.0 - 2.0 %) 0.5 Neut # (Auto) (2.0 - 7.6 x10 3/uL) 12.30 H Lymph # (Auto) (1.0 - 3.8 x10 3/uL) 1.60 Hocking # (Auto) (0.1 - 0.8 x10 3/uL) [...] range of motion, normal sensory, normal motor functionNeuro/PRODUCTION SUPERINTENDENT HYDRO: alert, oriented X 3Skin: dry, intact, no gross abnormalitiesPsychiatry: no hallucinations, normal moodProblem List/A P: 1. Rupture of ureter Free Text DxA P NotesFree text DxA P notes:Assessment:62-year-old male with last medical history of, BPH, transferred from [place] for urology evaluation and treatment secondary to [...] neededRepeat labsFurther recommendation based on patient's clinical ihwtxl2510/17/2022Vital signs within normal limitsHypokalemia 3.2, hypomagnesemia 1.50Renal [...] on IV antibiotic ZosynConsult placed to Dr. Jafef for patients UTITroponin IBlood precaution, glycemic controlFollow-up [...] controlFollow-up electrolytes and labs, continue medications and axbkhfw8110/22/2022Vital signs within normal limits, POC glucose is [...] explained to patient's daughterContinue with current medicationsFall hkvcaaqxce22/20/2023Stable, POC glucose 154Patient with Black to gravity, [...] supportive care at 2224 at 0830 RPT #:[id number] OF REPORTPRProgress eves8436-85-19Y15:12:00G.LEYD28195153-2280PYSpqid able for patient cscgZOFPASOQNOUHHK7094-77-68M70:24:26 [facility] 2022-10-25 10:44:00 [id number] zPBpnm8F0swjNoSW7+pLEFl9m0bXx OQd3o+ZB/NZRSR38Qq08Wg1MeGw4880-90-64E59:44:90661 1-[address] [place] [address] PATIENT NAME: MATHEW CASTILLO ADMIT DATE: 10/16/22ACCOUNT NO: [id number] ROOM NO: 6630 AGE: 62 REPORT TYPE: [...] admitted through Emergency Roominitially to hospital in [place] with urinary retention of 2 days' durationand was found to have some extravasation of urine in the peritoneal cavity. Thepatient was treated with IV antibiotics and had a Black catheter inserted andabout 3 liters of urine was drained and the Black was left in place and [facility]The patient was [...] Dictated: 10/25/2022 10:44:58Date Transcribed: 10/25/2022 11:24:45HA/Yulisa #: [id number] ID: [id number] Authenticated and Edited by Skip Jaffe MD On 11/02/22 2:23:50 AM at 0323 PATIENT NAME: MATHEW CASTILLO pnar4389-05-41W04:24:00G.DCU09457680-7759HSXulpek ble for patient xtulFVNSAEKWFRVCNB0393-85-79S43:24:12 [facility] 2022-10-24 22:59:00 [id number] dg1ucpW7HPMD1pvftW+S7uLJt0yOa 9Duu3UM0R6dQ1ytz313p4Eq+UOd4298-03-42N80:59:00 [facility])Internal Medicine Prog. NoteREPORT#:[id number] REPORT STATUS: SignedDATE:10/24/22 TIME: 2258 PATIENT: MATHEW CASTILLO UNIT #: [id number]#: [id number] [address] [birth year] AGE: 62 SEX: M ATTEND: Salinas Alba I [facility] AUTHOR: Sofia Cheng NP * ALL edits or amendments must be made on the electronic/computer document * SubjectiveChief complaint:Abdominal distention, hydronephrosisHPI:62-year-old male with last medical history of, BPH, transferred from [place] for urology evaluation and treatment secondary to [...] range of motion, normal sensory, normal motor functionNeuro/PRODUCTION SUPERINTENDENT HYDRO: alert, oriented X 3Skin: dry, intact, no gross abnormalitiesPsychiatry: no hallucinations, normal moodProblem List/A P: 1. Rupture of ureter Free Text DxA P NotesFree text DxA P notes:Assessment:62-year-old male with last medical history of, BPH, transferred from [place] for urology evaluation and treatment secondary to [...] neededRepeat labsFurther recommendation based on patient's clinical orogfv9210/17/2022Vital signs within normal limitsHypokalemia 3.2, hypomagnesemia 1.50Renal [...] controlFollow-up electrolytes and labs, continue medications and wbzftmk3410/22/2022Vital signs within normal limits, POC glucose is [...] explained to patient's daughterContinue with current medicationsFall ahlmlmqhvi37/20/2023Stable, POC glucose 154Patient with Black to gravity, tolerating p.o. intakeNephro is following. On tamsulosin p.o.Continue pain control, glycemic control, fall precautionContinue medications and present care at 2223 at 0830 RPT #:[id number] OF REPORTPRProgress tnys3829-02-58M51:59:00G.AFMQ29809428-3813GRTygyb able for patient jeehOQQFQWBOHFWRJW3936-79-60A32:24:17 [facility] 2022-10-24 19:41:00 [id number] fcYM4MSj/7apuZY/YiIlvtFp98xIs Xs2LMZKXBf1YkwJHvhSbI4mM84S8532-29-76G83:41:00 [facility] ([facility])Infectious Dis. Progress NoteREPORT#:[id number] REPORT STATUS: SignedDATE:10/24/22 TIME: 1940 PATIENT: MAHTEW CASTILLO UNIT #: [id number]#: [id number] ROOM/BED: 6630-1DOB: [birth year] AGE: 62 SEX: M ATTEND: Salinas Alba I [facility] AUTHOR: Skip Jaffe MD * ALL edits [...] closely for any diarrhea. at 0316 RPT #:[id number] OF REPORTPRProgress jsvu6702-82-74S57:41:00G.GWDI49248727-5581YUAhxki able for patient jcyrFEBNFGCPKCZVZI5846-95-64O95:16:37 [facility] 2022-10-24 19:12:00 [id number] 2j9OBU418UuJyYnr8+nSXnzIFjnKL IBdfe9xnxLaZQi0CUJdIl4jUtUx9601-15-50K25:12:68225 0-[address] [place], [place] [address] PATIENT NAME: MATHEW CASTILLO ADMIT DATE: 10/16/22ACCOUNT NO: [id number] ROOM NO: [facility] AGE: 62 REPORT TYPE: PROGRESS NOTE [...] sodium is 138, potassium 3.8, chloride 107, dxbyeewkjwe82, glucose 98. BUN 11, creatinine 1.0, estimated [...] medical problems was initiallyadmitted to hospital in [place] where he had presented with urinaryretention. The patient was found to have 3 liters of urine in the bladder. Hehad a Black catheter inserted and subsequently was transferred to [facility] for urology evaluation. He was [...] Dictated: 10/24/2022 19:12:07Date Transcribed: 10/24/2022 19:51:44HA/Concepcion #: [id number] ID: [id number] Authenticated and Edited by Skip aJffe MD On 11/02/22 2:23:34 AM at 0323 PATIENT NAME: MATHEW CASTILLO loza9915-90-89W75:51:00G.GSR76885819-2644EFPuxeni ble for patient qwyiCYXUUILTTMEFQT1681-01-95T31:24:12 [facility] 2022-10-24 16:08:00 [id number] kQDP7ITRZ5ObdX/sMaFTNPE/[place]/s f3STW/zqiOu4wuMqYDCIDkIZ9K76033-48-35P38:08:00 [facility] ([facility])Nephrology Progress NoteREPORT#:[id number] REPORT STATUS: SignedDATE:10/24/22 TIME: 160 PATIENT: MATHEW CASTILLO UNIT #: [id number]#: [id number] [address] [birth year] AGE: 62 SEX: M ATTEND: Salinas Alba I [facility] AUTHOR: Carmen Kemp * ALL edits or [...] urine in his bladder. CT abdomen from [place] showed that the patient has a very [...] urine in his bladder. CT abdomen from [place] showed that the patient has a very [...] above A/P at 1740 at 2124 RPT #:[id number] OF REPORTPRProgress kgcg3301-59-58O46:08:00G.ZRVZ58569403-5182UDHlszz able for patient qzblULKUOPEFLPHKFL1224-79-29H15:40:54 [facility] 2022-10-23 21:33:00 [id number] ylQ6Tr9Bx7grCZMdJFNuPJOUqnCNz 5CHZvulr5INmxVocCa5icDuMUDo7222-76-74A53:33:00 [facility] Prog. NoteREPORT#:[id number] REPORT STATUS: SignedDATE:10/23/22 TIME: 2132 PATIENT: MATHEW CASTILLO UNIT #: [id number]#: [id number] [address] [birth year] AGE: 62 SEX: M ATTEND: [place] [facility] AUTHOR: Sofia Cheng NP * ALL edits or amendments must be made on the electronic/computer document * SubjectiveChief complaint:Abdominal distention, hydronephrosisHPI:62-year-old male with last medical history of, BPH, transferred from [place] for urology evaluation and treatment secondary to [...] range of motion, normal sensory, normal motor functionNeuro/PRODUCTION SUPERINTENDENT HYDRO: alert, oriented X 3Skin: dry, intact, no gross abnormalitiesPsychiatry: no hallucinations, normal moodProblem List/A P: 1. Rupture of ureter Free Text DxA P NotesFree text DxA P notes:Assessment:62-year-old male with last medical history of, BPH, transferred from [place] for urology evaluation and treatment secondary to [...] neededRepeat labsFurther recommendation based on patient's clinical mhoglj8710/17/2022Vital signs within normal limitsHypokalemia 3.2, hypomagnesemia 1.50Renal [...] controlFollow-up electrolytes and labs, continue medications and kfvkwgd2910/22/2022Vital signs within normal limits, POC glucose is [...] medicationsFall precaution at 0250 at 0842 RPT #:[id number] OF REPORTPRProgress iemz0441-73-96Q48:33:00G.DJSQ11406005-6376NJCiauy able for patient lcpyOOAPQUMCMJTXNI5379-97-77K46:51:16 [facility] 2022-10-23 18:51:00 [id number] bBavH6E08xGVP0aIvUNCAjb1n/gJ1 PpWssahiImiEJ5vR0njyqAlwGVB2170-33-20F77:51:00 [facility] ([facility])Infectious Dis. Progress NoteREPORT#:[id number] REPORT STATUS: SignedDATE:10/23/22 TIME: 1850 PATIENT: MATHEW CASTILLO UNIT #: [id number]#: [id number] [address]OB: [birth year] AGE: 62 SEX: M ATTEND: [...] closely for any diarrhea. at 0256 RPT #:[id number] OF REPORTPRProgress rnkg7718-35-00E78:51:00G.PQQZ77333027-0473DEHngfm able for patient yfxvDVAMRTDSRZFYHM9549-26-93E38:56:58 [facility] 2022-10-23 18:27:00 [id number] obaA9RMJwXvMbfL2GTSgJ4k0eVqLt +CUTCDxSJm4uvZbPYC43+hf8N+f8368-68-05F90:27:77650 9-[address] [place] [address] PATIENT NAME: MATHEW CASTILLO ADMIT DATE: 10/16/22ACCOUNT NO: [id number] ROOM NO: G.6630 AGE: 62 REPORT TYPE: [...] sodium is 139, potassium 4.0, chloride 107, , glucose 102, BUN 12, creatinine 1.1, estimated GFR is 75.4, calcium is 7.8,magnesium is 1.72. Blood cultures x2 are negative so far at 48 hours ofincubation. PATIENT NAME: MATHEW CASTILLO ASSESSMENT AND PLAN: The patient with multiple medical problems was initiallyadmitted through the Emergency Room where he was transferred from [facility] because of urinary retention. The patient presented to [facility] with 2 days' history of not able to pass any urine and he was found tohave 3 liters urine in his bladder with some extravasation of urine into theperitoneal cavity. The patient had a Black catheter placed and bladder wasrelieved. He was transferred to [facility] forevaluation by Urology Service. The patient was kept on IV ceftriaxone.Initially, he showed improvement in his condition; however, he had a temperatureof up to 37.8 degrees Celsius financial writer on 10/20/2022, and at that time, hehad [...] 10/23/2022 18:27:31Date Transcribed: 10/23/2022 18:54:06 ESTRADA/Concepcion #: [id number] ID: [id number] Authenticated and Edited by Skip Jaffe MD On 11/02/22 2:23:13 AM at 0225 PATIENT NAME: MATHEW CASTILLO rfmz6270-70-59B87:54:00G.ZHP18599607-0757IZLdwsoc ble for patient gtgkPVWUDGCYFAYEOT4554-16-02I22:25:49 [facility] 2022-10-23 13:24:00 [id number] rNptKafOUi6wfUadXkdyTckqIv9G/ 9+ZsQmPgxbdhLCejcAE03u5jbrY1730-19-33F85:24:00 [facility] ([facility])Nephrology Progress NoteREPORT#:[id number] REPORT STATUS: SignedDATE:10/23/22 TIME: 1323 PATIENT: MATHEW CASTILLO UNIT #: [id number]#: [id number] [address] [birth year] AGE: 62 SEX: M ATTEND: [...] 10/23 10/23 10/23 10/23 10/22 1622 1133 0895 0622 2006 Chemistry Sodium (134 - 147 mEq/L) [...] urine in his bladder. CT abdomen from [place] showed that the patient has a very [...] urine in his bladder. CT abdomen from [place] showed that the patient has a very [...] agree with above A/P at 1741 at 1182 RPT #:[id number] OF REPORTPRProgress mksi4884-39-41X83:24:00G.BGWG11903149-1641IZRlewp able for patient bbxlWUQPXSXQHCSJAC1554-11-58F55:42:17 [facility] 2022-10-22 18:32:00 [id number] mTEolq5qW0hqUTcyx8UghrllxhJlw nUfzW9UKIG+aDyp/HTuZrGVn0uG8173-95-39V35:32:00 [facility] ([facility])Infectious Dis. Progress NoteREPORT#:[id number] REPORT STATUS: SignedDATE:10/22/22 TIME: 1831 PATIENT: MATHEW CASTILLO UNIT #: [id number]#: [id number] [address] [birth year] AGE: 62 SEX: M ATTEND: [...] Had low-grade temperature of the 37.6 degreeC financial writer today. Remains afebrile at the present time. [...] IV antibiotics for now. at 0219 RPT #:[id number] OF REPORTPRProgress zdpu0069-81-61C96:32:00G.BUML25951862-0847GSEefpz able for patient jinrFYVQGMPKRZZCOT5130-75-99E09:19:49 [facility] 2022-10-22 18:20:00 [id number] Y5kmB93fnq3feXR2xTA5q827QmchE pTytetHbosJR3C7LKp0PYGSAhd18039-54-68H87:20:83867 8[address] [place] [address] PATIENT NAME: MATHEW CASTILLO ADMIT DATE: 10/16/22ACCOUNT NO: [id number] ROOM NO: G.6630 AGE: 62 REPORT TYPE: [...] comorbidities, was initiallyadmitted through [facility] with acute urinaryretention. The patient [...] need for urology evaluation, [facility]. The patient was continued on IVceftriaxone and had been doing fairly well until financial writer yesterday when hestarted to have fever of [...] Dictated: 10/22/2022 18:20:30Date Transcribed: 10/22/2022 19:52:40/Trina #: [id number] ID: [id number] Authenticated and Edited by Skip Jaffe MD On 11/02/22 2:22:51 AM at 0323 PATIENT NAME: MATHEW CASTILLO mhkv7305-92-61U31:52:00G.WSO42947597-9218QKQphnjv ble for patient uegeYROJGTMQTQXJUW2961-20-53N81:24:12 [facility] 2022-10-22 18:15:00 [id number]/hYJ6AQ U1CIaoxHsaeW30za++kG9EvYIAgfZ loBRLVozslJKlylNZ2vyj4Pu73E5627-81-63G56:15:00 [facility] Prog. NoteREPORT#:[id number] REPORT STATUS: SignedDATE:10/22/22 TIME: 1814 PATIENT: MATHEW CASTILLO UNIT #: [id number]#: [id number] [address] [birth year] AGE: 62 SEX: M ATTEND: Salinas Alba I [facility] AUTHOR: Sofia Cheng NP * ALL edits or amendments must be made on the electronic/computer document * SubjectiveChief complaint:Abdominal distention, hydronephrosisHPI:62-year-old male with last medical history of, BPH, transferred from [place] for urology evaluation and treatment secondary to [...] 10/22 10/22 10/22 10/22 10/21 1700 1119 0778 0678 2003 Chemistry Sodium (134 - 147 mEq/L) [...] range of motion, normal sensory, normal motor functionNeuro/PRODUCTION SUPERINTENDENT HYDRO: alert, oriented X 3Skin: dry, intact, no gross abnormalitiesPsychiatry: no hallucinations, normal moodProblem List/A P: 1. Rupture of ureter Free Text DxA P NotesFree text DxA P notes:Assessment:62-year-old male with last medical history of, BPH, transferred from [place] for urology evaluation and treatment secondary to [...] further evaluation and treatmentUrology consultation in placeKeep Blcak to bedside drainageI's and O'sMonitor renal functionNephrology consultationReplace electrolytesStart tamsulosinBicarb drip startedRepeat CT of the abdomen and pelvis if neededRepeat labsFurther recommendation based on patient's clinical pezuoy6310/17/2022Vital signs within normal limitsHypokalemia 3.2, hypomagnesemia 1.50Renal [...] controlFollow-up electrolytes and labs, continue medications and nywuymi2210/22/2022Vital signs within normal limits, POC glucose is controlledHypocalcemia 7.8, hypomagnesemia 1.72No sonographic evidence for DVTBlood culture shows no growth after 48 hoursPatient with good urine output, renal function is improved, patient will follow-up as an outpatientStill on IV antibiotic Zosyn, tamsulosin p.o.Continue electrolyte control-replace magnesiumContinue pain control, glycemic controlFollow-up labs, continue medications and supportive care at 0314 at 0842 RPT #:[id number] OF REPORTPRProgress opbr8643-50-18A33:15:00G.LWGA02795759-7584JOAnbhi able for patient cijtHUVIHXPNMOVPEV1723-99-76D20:14:38 [facility] 2022-10-22 09:31:00 [id number] j/kPKv1eCO6hvlyKqtgQfzDRSxfiC pl63Tm3Yu0DSgPwmPrcVWg0ix0m0952-17-59K76:31:00 [facility] ([facility]Nephrology Progress NoteREPORT#:[id number] REPORT STATUS: SignedDATE:10/22/22 TIME: 930 PATIENT: MATHEW CASTILLO UNIT #: [id number]#: [id number] ROOM/BED: 6630-1DOB: [birth year] AGE: 62 SEX: M ATTEND: Salinas Alba I [facility] AUTHOR: Carmen Kemp * ALL edits or [...] 10/22 10/22 10/22 10/21 1700 1119 0737 0653 2004 Chemistry Sodium (134 - 147 mEq/L) [...] urine in his bladder. CT abdomen from [place] showed that the patient has a very [...] urine in his bladder. CT abdomen from [place] showed that the patient has a very [...] patient's nurse, and . Toby Koehler 10/22/22 1310:Attestations Physician AttestationReviewed findings plan:Patient examined Renal function improved and wnl, black to gravity, -2/2 post-obstrucitve uropathy, replace electrolytes as needed, agree with aboveA/P at 1842 at 2220 RPT #:[id number] OF REPORTPRProgress xqit2275-88-69P58:31:00G.RMXC31524769-4329ZGFldom able for patient fnjvIQSKFPAEFAAGKV7730-51-13Z38:42:25 [facility] 2022-10-21 20:48:00 [id number]+6U6 QdCJd8mk/0EzHEAkrJxm/DYHjvyDQ 72aE8/gsr2Ppcc+7TW0pGD+IW8+2672-31-87K10:48:00 [facility])Internal Medicine Prog. NoteREPORT#:[id number] REPORT STATUS: SignedDATE:10/21/22 TIME: 2047 PATIENT: MATHEW CASTILLO UNIT #: [id number]#: [id number] [address] [birth year] AGE: 62 SEX: M ATTEND: Salinas Alba I [facility] AUTHOR: Sfoia Cheng NP * ALL edits or amendments must be made on the electronic/computer document * SubjectiveChief complaint:Abdominal distention, hydronephrosisHPI:62-year-old male with last medical history of, BPH, transferred from [place] for urology evaluation and treatment secondary to [...] range of motion, normal sensory, normal motor functionNeuro/PRODUCTION SUPERINTENDENT HYDRO: alert, oriented X 3Skin: dry, intact, no gross abnormalitiesPsychiatry: no hallucinations, normal moodProblem List/A P: 1. Rupture of ureter Free Text DxA P NotesFree text DxA P notes:Assessment:62-year-old male with last medical history of, BPH, transferred from [place] for urology evaluation and treatment secondary to [...] neededRepeat labsFurther recommendation based on patient's clinical ucuzkl7310/17/2022Vital signs within normal limitsHypokalemia 3.2, hypomagnesemia 1.50Renal [...] and present at 0104 at 1009 RPT #:[id number] OF REPORTPRProgress ccyz6525-53-05M54:48:00G.LSFI81989766-2595NIGaotb able for patient fjzyWOBLCIYZVCOERQ8655-92-57J80:04:19 [facility] 2022-10-21 19:01:00 [id number] 4/ab7pl8fEwhDpdTWYdM+kwcG9GTQ 6owgG3Q8+cb1tpZBjNgVF6Hb1HC8285-65-07M19:01:00 [facility] ([facility])Infectious Dis. Progress NoteREPORT#:[id number] REPORT STATUS: SignedDATE:10/21/22 TIME: 1900 PATIENT: MATHEW CASTILLO UNIT #: [id number]#: [id number] [address] [birth year] AGE: 62 SEX: M ATTEND: Salinas Alba I [facility] AUTHOR: Skip Jaffe MD * ALL edits [...] Discussed with Skylar MENDIOLA. at 0242 RPT #:[id number] OF REPORTPRProgress omqj7861-00-71W50:01:00G.WBCV67887730-8286OAXvrqz able for patient ucdzEJKKSUXZAUBLBE1890-94-56Q47:42:47 [facility] 2022-10-21 11:23:00 [id number] B+hGXeS7h9OabWnlQoJy1apj9AlYi ENZ6d2H7/GFC5w/aWDZOQMmBTlq6102-65-61C42:23:00 [facility] ([facility] SYSTEMNephrology Progress NoteREPORT#:[id number] REPORT STATUS: SignedDATE:10/21/22 TIME: 1122 PATIENT: MATHEW CASTILLO UNIT #: [id number]#: [id number] [address] [birth year] AGE: 62 SEX: M ATTEND: [place] Alba I [facility] AUTHOR: Carmen Kemp * ALL edits or [...] urine in his bladder. CT abdomen from [place] showed that the patient has a very [...] urine in his bladder. CT abdomen from [place] showed that the patient has a very [...] above A/P at 1640 at 2055 RPT #:[id number] OF REPORTPRProgress bkpq3148-64-54H21:23:00G.CRSV96392433-7019CFNdtym able for patient atvwIECDLIZHOVPXCL0494-20-67E02:40:19 [facility] 2022-10-21 03:59:00 [id number]+N GrQnI7hdDJPKA0SXVOqngKBZRZkiQ fvzKqZaalhs075PqB3MXNAzv3W26370-22-56J67:59:[address] [place], [place] [address] PATIENT NAME: MATHEW CASTILLO ADMIT DATE: 10/16/22ACCOUNT NO: [id number] ROOM NO: 6630 AGE: 62 REPORT TYPE: [...] who was initially admitted to hospital in [place] where he presented with acute urinary retention. [...] need forurology evaluation, [facility] On [facility], [...] temperature of up to 37.8 degrees Celsius financial writer today and after that he had been only having low-grade fever. Denies any nausea, vomiting or diarrhea. Denies any chest pain, cough, expectoration, or shortness of breath. He continues to have a Black catheter in place and admits to having suprapubic areasoreness and pain, however, states that the pain and soreness he had at the timeof presentation to the [facility] has resolved. 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 IMPRESSION: The patient with multiple comorbidities including history of schizophrenia and benign prostatic hypertrophy with worsening urinary difficulties for last over 2 years, was admitted through emergency room where hewas transferred from [facility] because of need for urology [...] to 37.8 degrees Celsius last night and financial writer and had developed marked leukocytosis. Clinically, he [...] Dictated: 10/21/2022 03:59:46Date Transcribed: 10/21/2022 04:40:04ESTRADA/Annelise #: [id number] ID: [id number] by Skip Jaffe MD On 11/02/2022 02:22:37 AM at 0222 PATIENT NAME: ANNAMATHEW :40:00G.AK [id number] for patient mtpuCDSDPTUUZXQWSJ2785-47-83I83:23:17 [facility] 2022-10-20 20:34:00 [id number] AJVbDpKOE1/rU02JMF0trqDDDR8mv DMhnobe+FUpHOoM1n9vVnFu2FTn7850-67-93D95:34:00 [facility] ([facility])Nephrology Progress NoteREPORT#:[id number] REPORT STATUS: SignedDATE:10/20/22 TIME: 2033 PATIENT: MATHEW CASTILLO UNIT #: [id number]#: [id number] ROOM/BED: [facility]30-1DOB: [birth year] AGE: 62 SEX: M ATTEND: [...] - 32.0 %) 9.5 L 7.3 L [place] % (Auto) (4.8 - 9.0 %) 7.2 7.5 Eos % (Auto) (0.3 - 3.7 %) 2.6 2.2 Baso % (Auto) (0.0 - 2.0 %) 0.4 0.3 Neut # (Auto) (2.0 - 7.6 x10 3/uL) 13.75 H 15.38 H Lymph # (Auto) (1.0 - 3.8 x10 3/uL) 1.67 1.40 Hocking # (Auto) (0.1 - 0.8 x10 3/uL) [...] urine in his bladder. CT abdomen from [place] showed that the patient has a very [...] urine in his bladder. CT abdomen from [place] showed that the patient has a very [...] IV hydralazine Schizophrenia-Home medications resumed at 2150 [facility] #:[id number] OF REPORTPRProgress jruw8340-01-46X84:34:00G.WCXO14158704-4178UEOkbsf able for patient lddiKDNZXACFFILZLU3030-52-66D45:50:59 [facility] 2022-10-20 18:11:00 [id number] KCJS66AQhZPsjue0x9lxEPu/7B3qc ESyMXYun+wk17EugbzbSkGrvFj67235-18-49W06:11:00 [facility] Prog. NoteREPORT#:[id number] REPORT STATUS: SignedDATE:10/20/22 TIME: 1810 PATIENT: MATHEW CASTILLO UNIT #: [id number]#: [id number] ROOM/BED: 6630-1DOB: [birth year] AGE: 62 SEX: M ATTEND: Salinas Alba I [facility] AUTHOR: Sofia Cheng SUPERVISOR [employer] * ALL edits or amendments must be made on the electronic/computer document * SubjectiveChief complaint:Abdominal distention, hydronephrosisHPI:62-year-old male with last medical history of, BPH, transferred from [place] for urology evaluation and treatment secondary to [...] - 32.0 %) 9.5 L 7.3 L [place] % (Auto) (4.8 - 9.0 %) 7.2 7.5 Eos % (Auto) (0.3 - 3.7 %) 2.6 2.2 Baso % (Auto) (0.0 - 2.0 %) 0.4 0.3 Neut # (Auto) (2.0 - 7.6 x10 3/uL) 13.75 H 15.38 H Lymph # (Auto) (1.0 - 3.8 x10 3/uL) 1.67 1.40 [place]ing # (Auto) (0.1 - 0.8 x10 3/uL) [...] range of motion, normal sensory, normal motor functionNeuro/PRODUCTION SUPERINTENDENT HYDRO: alert, oriented X 3Skin: dry, intact, no gross abnormalitiesPsychiatry: no hallucinations, normal moodProblem List/A P: 1. Rupture of ureter Free Text DxA P NotesFree text DxA P notes:Assessment:62-year-old male with last medical history of, BPH, transferred from [place] for urology evaluation and treatment secondary to [...] neededRepeat labsFurther recommendation based on patient's clinical gfhsym2410/17/2022Vital signs within normal limitsHypokalemia 3.2, hypomagnesemia 1.50Renal [...] supportive care at 0141 at 1009 RPT #:[id number] OF REPORTPRProgress awgc5578-35-31A38:11:00G.NTON59602849-0540LIZhjhh able for patient esnnENUSEAXKRLBXWK9348-14-47A21:42:15 [facility] 2022-10-20 17:06:00 [id number] wsxp/61LWRcT3kcMsohXidmMgq0Nb OvR0/GQoZjs0ZxxV9hwTqOUsUGe4870-10-12W92:06:00 [facility] ([facility])Infect Disease Consult NoteREPORT#:[id number] REPORT STATUS: SignedDATE:10/20/22 TIME: 1706 PATIENT: MATHEW CASTILLO UNIT #: [id number]#: [id number] [address] [birth year] AGE: 62 SEX: M ATTEND: [...] Allergies:No Known Allergies (10/16/22) at 0239 RPT #:[id number] OF REPORTJIMwwkpmnyklie3686-67-16S75:06:00G.PDOC2 5324267-1099ULIippziuwk for patient vifkPNCGJLWXAMXRNI3800-73-13O30:40:06 [facility] 2022-10-20 01:07:00 [id number] 5eWMTQmeeCTIMr1LdQklc+AYBwgnw 4Any2zgJ0PQh6YPWpEYSOi9VQES8136-43-16N48:07:22242 7[address] [place] [address] PATIENT NAME: MATHEW CASTILLO ADMIT DATE: 10/16/22ACCOUNT NO: [id number] ROOM NO: 6630 AGE: 62 REPORT TYPE: eELECTROCARDIOGRAM REPORT SEX: M ADMITTING PHYSICIAN:Salinas Alba MD ATTENDING PHYSICIAN:Salinas Alba MD Order:[id number] Reason : Sepsis Test Date/Time Stamp:[place] Oct 20 2022 01:07:09Blood Pressure : / [...] MD at 1247 PATIENT NAME: MATHEW CASTILLO .[id number] AVAvailable for patient boaeXCZOIIVXYOLMJS7247-30-37N71:47:27 [facility] 2022-10-19 22:43:00 [id number]+bH+pxod Bou4DGDI/LZb4eQAEm85kJwckA4l/ aknlo00q6Q5vGkYssnfzlL0q/O83922-57-69H94:43:00 [facility] Prog. NoteREPORT#:[id number] REPORT STATUS: SignedDATE:10/19/22 TIME: 2242 PATIENT: MATHEW CASTILLO UNIT #: [id number]#: [id number] [address] [birth year] AGE: 62 SEX: M ATTEND: Salinas Alba I [facility] AUTHOR: Sofia Cheng NP * ALL edits or amendments must be made on the electronic/computer document * SubjectiveChief complaint:Abdominal distention, hydronephrosisHPI:62-year-old male with last medical history of, BPH, transferred from [place] for urology evaluation and treatment secondary to [...] 10/19 10/19 10/19 10/19 1917 1615 1135 0713 0347 Chemistry Sodium (134 - 147 mEq/L) [...] - 32.0 %) 15.7 15.6 10.6 L [place] % (Auto) (4.8 - 9.0 %) 8.5 10.1 H 12.8 H Eos % (Auto) (0.3 - 3.7 %) 6.0 H 7.5 H 2.7 Baso % (Auto) (0.0 - 2.0 %) 0.7 0.7 0.4 Neut # (Auto) (2.0 - 7.6 x10 3/uL) 6.09 5.53 8.23 H Lymph # (Auto) (1.0 - 3.8 x10 3/uL) 1.48 1.39 1.22 [place] # (Auto) (0.1 - 0.8 x10 3/uL) [...] pH (5.0 - 7.0) 5.0 Ur Specific Anderson (1.005 - 1.030) 1.015 Urine Protein (NEGATIVE) [...] Pulse Resp B/P B/P Mean Pulse Ox LdM846/-10/19 37.0-37.2 66-85 14-17 105-142/67-80 80.3-100.6 95-98 Last [...] range of motion, normal sensory, normal motor functionNeuro/PRODUCTION SUPERINTENDENT HYDRO: alert, oriented X 3Skin: dry, intact, no gross abnormalitiesPsychiatry: no hallucinations, normal moodProblem List/A P: 1. Rupture of ureter Free Text DxA P NotesFree text DxA P notes:Assessment:62-year-old male with last medical history of, BPH, transferred from [place] for urology evaluation and treatment secondary to [...] neededRepeat labsFurther recommendation based on patient's clinical vapkfy9210/17/2022Vital signs within normal limitsHypokalemia 3.2, hypomagnesemia 1.50Renal [...] present care at 0229 at 1514 RPT #:[id number] OF REPORTPRProgress wgzz5905-05-68X33:43:00G.EXWE89289989-2122OKQrwet able for patient pfflUTBUUVJADKRRFP9510-29-43Z20:29:44 [facility] 2022-10-19 20:14:00 [id number]/jmkQ zzHUKL4Dn/g8NlYn5dYcxgd9Iz+fabi Zk2dU48K02oJ/gdYNORscRp2Lve3016-76-96Y54:14:00 [facility]ph[facility] Progress NoteREPORT#:[id number] REPORT STATUS: SignedDATE:10/19/22 TIME: 2013 PATIENT: MATHEW CASTILLO UNIT #: [id number]#: [id number] [address] [birth year] AGE: 62 SEX: M ATTEND: [...] 10/19 10/19 10/19 10/19 10/18 1615 1135 0772 0349 2021 Chemistry Sodium (134 - 147 mEq/L) [...] % (Auto) (14.0 - 32.0 %) 15.7 [place] % (Auto) (4.8 - 9.0 %) 8.5 Eos % (Auto) (0.3 - 3.7 %) 6.0 H Baso % (Auto) (0.0 - 2.0 %) 0.7 Neut # (Auto) (2.0 - 7.6 x10 3/uL) 6.09 Lymph # (Auto) (1.0 - 3.8 x10 3/uL) 1.48 [place] # (Auto) (0.1 - 0.8 x10 3/uL) [...] pH (5.0 - 7.0) 5.0 Ur Specific Anderson (1.005 - 1.030) 1.015 Urine Protein (NEGATIVE) [...] urine in his bladder. CT abdomen from [place] showed that the patient has a very [...] urine in his bladder. CT abdomen from [place] showed that the patient has a very [...] IV hydralazine Schizophrenia-Home medications resumed at 2148 [facility] #:[id number] OF REPORTPRProgress xqtx1516-47-14I77:14:00G.URKI97618942-5062YEGrlzs able for patient ycxgRKIYGXSUPBJMMK6449-85-45F17:49:08 [facility] 2022-10-18 20:26:00 [id number] Y72eUR5xCoEtJBNxaUeYYdBNXkmt9 sblLOfUxsLrGnxvTJJUWYx/ITw+5154-44-81Z70:26:00 [facility] Prog. NoteREPORT#:[id number] REPORT STATUS: SignedDATE:10/18/22 TIME: 2025 PATIENT: MATHEW CASTILLO UNIT #: [id number]#: [id number] ROOM/BED: 6630-1DOB: [birth year] AGE: 62 SEX: M ATTEND: [place] Alba I [facility] AUTHOR: Sofia Cheng [employer] * ALL edits or amendments must be made on the electronic/computer document * SubjectiveChief complaint:Abdominal distention, hydronephrosisHPI:62-year-old male with last medical history of, BPH, transferred from [place] for urology evaluation and treatment secondary to [...] % (Auto) (14.0 - 32.0 %) 15.6 [place] % (Auto) (4.8 - 9.0 %) 10.1 H Eos % (Auto) (0.3 - 3.7 %) 7.5 H Baso % (Auto) (0.0 - 2.0 %) 0.7 Neut # (Auto) (2.0 - 7.6 x10 3/uL) 5.53 Lymph # (Auto) (1.0 - 3.8 x10 3/uL) 1.39 [place] # (Auto) (0.1 - 0.8 x10 3/uL) [...] range of motion, normal sensory, normal motor functionNeuro/PRODUCTION SUPERINTENDENT HYDRO: alert, oriented X 3Skin: dry, intact, no gross abnormalitiesPsychiatry: no hallucinations, normal moodProblem List/A P: 1. Rupture of ureter Free Text DxA P NotesFree text DxA P notes:Assessment:62-year-old male with last medical history of, BPH, transferred from [place] for urology evaluation and treatment secondary to [...] neededRepeat labsFurther recommendation based on patient's clinical vazlom5210/17/2022Vital signs within normal limitsHypokalemia 3.2, hypomagnesemia 1.50Renal [...] supportive care at 2012 at 1301 RPT #:[id number] OF REPORTPRProgress vghz5572-37-98O62:26:00G.GROF22299910-1480MYSconn able for patient ucwbZAWRSIDDXWAERZ6909-09-85B26:12:32 [facility] 2022-10-18 17:48:00 [id number] fE+GzYPpawvCMKFD4RpmG5lGKL62v B8jaK0oyRsbq0X/hLKMnj5xrsSA1090-23-86W58:48:00 [facility]ph[facility] Progress NoteREPORT#:[id number] REPORT STATUS: SignedDATE:10/18/22 TIME: 1747 PATIENT: MATHEW CASTILLO UNIT #: [id number]#: [id number] ROOM/BED: 6630-1DOB: [birth year] AGE: 62 SEX: M ATTEND: [place] [facility] AUTHOR: Carmen Kemp * ALL edits or [...] % (Auto) (14.0 - 32.0 %) 15.6 [place] % (Auto) (4.8 - 9.0 %) 10.1 H Eos % (Auto) (0.3 - 3.7 %) 7.5 H Baso % (Auto) (0.0 - 2.0 %) 0.7 Neut # (Auto) (2.0 - 7.6 x10 3/uL) 5.53 Lymph # (Auto) (1.0 - 3.8 x10 3/uL) 1.39 [place] # (Auto) (0.1 - 0.8 x10 3/uL) [...] urine in his bladder. CT abdomen from [place] showed that the patient has a very [...] urine in his bladder. CT abdomen from [place] showed that the patient has a very [...] K and magnesium supplementation. at 1937 RPT #:[id number] OF REPORTPRProgress edzh1473-07-16L93:48:00G.DYEO09516673-8430VSDmwlv able for patient vqhzSCGOIJPVEWOCZH3345-03-69F84:50:34 [facility] 2022-10-17 22:43:00 [id number] DMe8ai6xwgVYGBMk+xBAE3NpRwy8H 6hiyxPU176fMrH5s10zepl5yZtD7732-76-52K85:43:00 [facility] ([facility])Internal Medicine Prog. NoteREPORT#:[id number] REPORT STATUS: SignedDATE:10/17/22 TIME: 2242 PATIENT: MATHEW CASTILLO UNIT #: [id number]#: [id number] [address] [birth year] AGE: 62 SEX: M ATTEND: [place] [facility] AUTHOR: Sofia Cheng [employer] * ALL edits or amendments must be made on the electronic/computer document * SubjectiveChief complaint:Abdominal distention, hydronephrosisHPI:62-year-old male with last medical history of, BPH, transferred from [place] for urology evaluation and treatment secondary to [...] Pulse Resp B/P B/P Mean Pulse Ox ZcM891/12-10/17 37.2-37.5 83-100 16-18 119-133/70-79 86.3-96.8 93-95 Last [...] (Auto) (14.0 - 32.0 %) 10.6 L [place] % (Auto) (4.8 - 9.0 %) 12.8 H Eos % (Auto) (0.3 - 3.7 %) 2.7 Baso % (Auto) (0.0 - 2.0 %) 0.4 Neut # (Auto) (2.0 - 7.6 x10 3/uL) 8.23 H Lymph # (Auto) (1.0 - 3.8 x10 3/uL) 1.22 [place] # (Auto) (0.1 - 0.8 x10 3/uL) [...] range of motion, normal sensory, normal motor functionNeuro/PRODUCTION SUPERINTENDENT HYDRO: alert, oriented X 3Skin: dry, intact, no gross abnormalitiesPsychiatry: no hallucinations, normal moodProblem List/A P: 1. Rupture of ureter Free Text DxA P NotesFree text DxA P notes:Assessment:62-year-old male with last medical history of, BPH, transferred from [place] for urology evaluation and treatment secondary to [...] neededRepeat labsFurther recommendation based on patient's clinical cxbigp1410/17/2022Vital signs within normal limitsHypokalemia 3.2, hypomagnesemia 1.50Renal function is improved, discontinue bicarb drip, continue electrolyte control-replace as needed per nephroUrology is followingContinue tamsulosinBP control-on hydralazine as needed, pain controlContinue telemetry monitoring, intake and output, fall precautionFollow-up labs, continue medications and supportive care at 0210 at 1300 RPT #:[id number] OF REPORTPRProgress rtio8474-35-55J57:43:00G.JUOR43444817-8200RWDmgcy able for patient gwxzAQZFDNJKEEZVJG9929-99-61I16:10:49 [facility] 2022-10-17 17:41:00 [id number] P8ReNFv7FYqTBm20S6k598riussCp Tf6/7+9uXr1hxJqRfxkrzhDBP6e7261-18-07W23:41:00 [facility] ([facility])Urology Progress NoteREPORT#:[id number] REPORT STATUS: SignedDATE:10/17/22 TIME: 1740 PATIENT: MATHEW CASTILLO UNIT #: [id number]#: [id number] [address] AGE: 62 SEX: M ATTEND: [...] (Auto) (14.0 - 32.0 %) 10.6 L [place] % (Auto) (4.8 - 9.0 %) 12.8 H Eos % (Auto) (0.3 - 3.7 %) 2.7 Baso % (Auto) (0.0 - 2.0 %) 0.4 Neut # (Auto) (2.0 - 7.6 x10 3/uL) 8.23 H Lymph # (Auto) (1.0 - 3.8 x10 3/uL) 1.22 Hocking # (Auto) (0.1 - 0.8 x10 3/uL) [...] ofr cystoscopy. Home with black at 1742 [facility] #:[id number] OF REPORTPRProgress qalm3611-97-89Y18:41:00G.YXIK54432574-6785CIApwsd able for patient fhmhWYROYNMYVMLCSB5847-47-68Y14:42:28 [facility] 2022-10-17 13:46:00 [id number] Lo3sGQFi8aBeioibHeOoAbZIzvvIm 6fPlurOdzesn4EHEqwTiUnp2sKM0998-49-91E21:46:00 [facility] NoteREPORT#:[id number] REPORT STATUS: SignedDATE:10/17/22 TIME: 1346 PATIENT: MATHEW CASTILLO UNIT #: [id number]#: [id number] [address] AGE: 62 SEX: M ATTEND: Salinas Alba I [facility] AUTHOR: Carmen Kemp * ALL edits or [...] (Auto) (14.0 - 32.0 %) 10.6 L [place] % (Auto) (4.8 - 9.0 %) 12.8 H Eos % (Auto) (0.3 - 3.7 %) 2.7 Baso % (Auto) (0.0 - 2.0 %) 0.4 Neut # (Auto) (2.0 - 7.6 x10 3/uL) 8.23 H Lymph # (Auto) (1.0 - 3.8 x10 3/uL) 1.22 [place] # (Auto) (0.1 - 0.8 x10 3/uL) [...] urine in his bladder. CT abdomen from [place] showed that the patient has a very [...] urine in his bladder. CT abdomen from [place] showed that the patient has a very [...] above A/P at 1759 at 2234 RPT #:[id number] OF REPORTPRProgress lfwl7023-28-07E55:46:00G.VEGO42863318-1811TPEcqwx able for patient gatfRDOWEMVPVITWQH0491-57-61U94:00:00 [facility] 2022-10-16 15:13:00 [id number] pJsudKUxsOYjd9R29cSq9ZYG9xf8D mq9VVKeyQAY0lAxWC1M4iki4Ke74270-11-43I27:13:73003 2-[address] [place] [address] PATIENT NAME: MATHEW CASTILLO ADMIT DATE: 10/16/22ACCOUNT NO: [id number] ROOM NO: G.6630 AGE: 62 REPORT TYPE: CONSULTATION REPORT SEX: M ADMITTING PHYSICIAN:Salinas Alba MD ATTENDING PHYSICIAN:Salinas Alba MD CONSULTATION DATE:10/16/2022 REASON FOR CONSULTATION: Hydronephrosis, urinary retention. HISTORY OF PRESENT ILLNESS: This is a 62-year-old male with a history ofschizophrenia who was sent in from [place]. He had reportedly almost 3liters of urine [...] pressure 134/86, pulse 94, respiratory rate 18, jmjnwfozfsk80.1, 93% on room air.GENERAL: Alert. No acute distress, nontoxic.HEENT: Normocephalic, atraumatic. Nontoxic.NECK: Supple.HEART: Regular rate and rhythm.LUNGS: Respirations unlabored.ABDOMEN: Soft, nontender, nondistended. No CVA tenderness.EXTREMITIES: Moving all extremities well. LABORATORY DATA: White blood cell count 11, hemoglobin 10.9, platelets 207.Creatinine was 2.1 on admission, now down to 1.4. ASSESSMENT AND PLAN: We reviewed the CT scan of the abdomen and pelvis from [facility]. The patient has a very large [...] Dictated: 10/16/2022 15:13:22Date Transcribed: 10/16/2022 16:06:29TESSIE/Yulisa #: [id number] ID: [id number] and Edited by Dave Jones MD On 11/12/22 1:37:06 PM at 0138 PATIENT NAME: MATHEW CASTILLO :06:00G.AK [id number] for patient soycMAZFCHZFXOOHBE6970-64-09Q62:40:23 [facility] 2022-10-16 12:39:00 [id number] VXnVQ/TzOaz1RGiu6tdHVnQYqm+PL MB8AtbfTCfzUbCNEa1i2eX8VoTW6821-13-44E67:39:00 [facility] ([facility])Nephrology Consultation NoteREPORT#:[id number] REPORT STATUS: SignedDATE:10/16/22 TIME: 1239 PATIENT: MATHEW CASTILLO UNIT #: [id number]#: [id number] [address] AGE: 62 SEX: M ATTEND: Salinas Alba I [facility] AUTHOR: Carmen Kemp * ALL edits or [...] Friday who took him to ER in [place]. He had CT abdomen which revealed b/l hydronephrosis and concern for possible ureteral rupture. He was transferred to [facility] for Urology evaluation. Initial VS at the [...] (Auto) (14.0 - 32.0 %) 3.8 L Hock[place] % (Auto) (4.8 - 9.0 %) 13.6 H Eos % (Auto) (0.3 - 3.7 %) 0.4 Baso % (Auto) (0.0 - 2.0 %) 0.2 Neut # (Auto) (2.0 - 7.6 x10 3/uL) 8.96 H Lymph # (Auto) (1.0 - 3.8 x10 3/uL) 0.42 L [place] # (Auto) (0.1 - 0.8 x10 3/uL) [...] urine in his bladder. CT abdomen from [place] showed that the patient has a very [...] urine in his bladder. CT abdomen from [place] showed that the patient has a very [...] patient's nurse, and . Toby Koehler 10/16/22 3333:Attestations Physician AttestationReviewed findings plan:Patient examined 62 years old male with PMH significant for schizophrenia, HTN, BPH, current everyday smoker. The patient states that on Friday last week, he noted abdominal distention, associated w/ pain and was unable to urinate. He wasseen by his daughter Friday who took him to ER in [place]. He had CT abdomen which revealed b/l hydronephrosis and concern for possible ureteral rupture. He was transferred to [facility] for Urology evaluation. Initial VSat the ER [...] above A/P at 1902 at 2211 RPT #:[id number] OF REPORTUXNmxtifkvtakd6755-69-67C14:39:00G.PDOC2 [id number] for patient zxwjLCDGHJVTYQYLDM4131-19-47Y34:02:18 [facility] 2022-10-16 11:15:00 [id number]+uyISa nluAb/SLUbuCuznYzbH1kR7KJgXkx yCi1yPWPhceLoTJ3tJE19ED0okY4149-57-85B44:15:00 [facility] ([facility])History Physical - AdultREPORT#:[id number] REPORT STATUS: SignedDATE:10/16/22 TIME: 1115 PATIENT: MATHEW CASTILLO SINCERE UNIT #: [id number]#: [id number] ROOM/BED: [facility]30-1DOB: [birth year] AGE: 62 SEX: M ATTEND: Salinas Alba I [facility] AUTHOR: Sofia Cheng NP * ALL edits or amendments must be made on the electronic/computer document * History of Present Illness HPIChief complaint:Abdominal distention, hydronephrosisHPI:62-year-old male with last medical history of, BPH, transferred from [place] for urology evaluation and treatment secondary to [...] range of motion, normal sensory, normal motor functionNeuro/PRODUCTION SUPERINTENDENT HYDRO: alert, oriented X 3Skin: dry, intact, no [...] (Auto) (14.0 - 32.0 %) 3.8 L [place] % (Auto) (4.8 - 9.0 %) 13.6 H Eos % (Auto) (0.3 - 3.7 %) 0.4 Baso % (Auto) (0.0 - 2.0 %) 0.2 Neut # (Auto) (2.0 - 7.6 x10 3/uL) 8.96 H Lymph # (Auto) (1.0 - 3.8 x10 3/uL) 0.42 L [place] # (Auto) (0.1 - 0.8 x10 3/uL) [...] last medical history of, BPH, transferred from [place] for urology evaluation and treatment secondary to [...] clinical course at 0232 at 1204 RPT #:[id number] OF REPORTHPHistory and physical ltepucvrrkq7221-74-37F16:15:00G.LMWY97456882-6616 AVAvailable for patient youcDTFUDEBUSZJFKO0024-86-34S31:32:18 [facility] 2022-10-16 03:54:00 [id number]+AgTxa y2r/jkkd5DSkR5DTQGCQ3aki5jfai n9kizcFy9D5oqYpLk+qEdCpEo2L4610-50-86S22:54:00 [facility] ([facility])EMERGENCY PROVIDER REPORTREPORT#:[id number] REPORT STATUS: SignedDATE:10/16/22 TIME: 035 PATIENT: MATHEW CASTILLO UNIT #: [id number]#: [id number] [address] 62 SEX: M PCP PHYS: No [...] (Auto) (14.0 - 32.0 %) 3.8 L [place] % (Auto) (4.8 - 9.0 %) 13.6 H Eos % (Auto) (0.3 - 3.7 %) 0.4 Baso % (Auto) (0.0 - 2.0 %) 0.2 Neut # (Auto) (2.0 - 7.6 x10 3/uL) 8.96 H Lymph # (Auto) (1.0 - 3.8 x10 3/uL) 0.42 L [place] # (Auto) (0.1 - 0.8 x10 3/uL) [...] 10/16 Sodium Chloride 10 ML IV 10/16 [id number] ConsultationConsultation Referral/Consult Name Dave Jones MD Executive Assistant To President Called Urology Executive Assistant To President Discussed with water resource consultant Requested Call Time 0345 Requested Call [...] DecisionHospitalize Hosp Physician Name Salinas Alba MD [facility] Physician Hospitalist Request Time 0508 [...] chart for administrative purposes only. at 1907RPT #:[id number] OF REPORTEDEmergreat river medical center department byatiw0259-36-23G97:54:00G.STFG15527758-5146TTXli ilable for patient cehuYQYHOAUHMGLISQ6143-01-00G30:07:49 [facility]
--- NOTE | 2023-09-03 16:24 | ER ---
Nurse's Notes [facility] Name: Mathew Porter Age: 62 yrs Sex: Male : 1960 Arrival Date: 09/03/2023 Time: 14:36 Bed 4 Private MD: Diagnosis: encounter for exchange of urinary black catheter Presentation: 09/02 15:16 Chief complaint: Patient states: HERE FOR BLACK CATHETER CHANGE. LAST CHANGED LAST db MONTH. Coronavirus screen: Client denies travel out of the [place] in the last 14 days. At this time, the client does not indicate any symptoms associated with coronavirus-19. Ebola Screen: Patient negative for fever greater than or equal to 101.5 degrees Fahrenheit, and additional compatible Ebola Virus Disease symptoms Patient denies exposure to infectious person. Patient denies travel to an Ebola-affected area in the 21 days before illness onset. No symptoms or risks identified at this time. Initial Sepsis Screen: Does the patient meet any 2 criteria? No. Patient's initial sepsis screen is negative. Does the patient have a suspected source of infection? No. Patient's initial sepsis screen is negative. Risk Assessment: Do you want to hurt yourself or someone else? Patient reports no desire to harm self or others. Onset of symptoms was September 03, 2023. 15:16 Method Of Arrival: Ambulatory db 15:16 Acuity: JAMILA 4 db Triage Assessment: 15:18 General: Appears in no apparent distress. comfortable, Behavior is calm, cooperative. db : Black in place. Historical: - Allergies: 15:18 NKA; db - PMHx: 15:18 Schizophrenia; db - PSHx: 15:18 Urolift (December); db - Immunization history:: Adult Immunizations unknown. - Infectious Disease History:: Denies. - Social history:: Smoking status: Patient reports the use of cigarette tobacco products, smokes one pack cigarettes per day. Screenin:07 [facility] ED Fall Risk Assessment (Adult) History of falling in the last 3 months, mb9 including since admission No falls in past 3 months (0 pts) Confusion or Disorientation No (0 pts) Intoxicated or Sedated No (0 pts) Impaired Gait No (0 pts) Mobility Assist Device Used No (0 pt) Altered Elimination No (0 pt) Score/Fall Risk Level 0 - 2 = Low Risk Oriented to surroundings, Maintained a safe environment, Educated pt \T\ family on fall prevention, incl call for assistance when getting out of bed. Abuse screen: Denies threats or abuse. Nutritional screening: No deficits noted. Tuberculosis screening: No symptoms or risk factors identified. Assessment: 16:07 General: Appears in no apparent distress. Behavior is calm, cooperative. Pain: Denies mb9 pain. Neuro: Devine Agitation-Sedation Scale (RASS): 0 - Alert and Calm Level of Consciousness is awake, alert, obeys commands, Oriented to person, place, time, situation, Appropriate for age. Cardiovascular: Patient's skin is warm and dry. Respiratory: Airway is patent Respiratory effort is even, unlabored, Respiratory pattern is regular, symmetrical. GI: No signs and/or symptoms were reported involving the gastrointestinal system. : Black in place. EENT: No signs and/or symptoms were reported regarding the EENT system. Derm: Skin is pink, warm \T\ dry. Musculoskeletal: Range of motion: intact in all extremities. Vital Signs: 15:16 BP 144 / 92; Pulse 68; Resp 16; Temp 96.6; Pulse Ox 95% ; Weight 69.85 kg; Height 5 ft. db 9 in. ; 16:29 Pulse 70; Resp 18; Temp 97.5(O); Pulse Ox 100% ; mb9 15:16 Body Mass Index 22.74 (69.85 kg, 175.26 cm) db ED Course: 14:38 Patient arrived in ED. im 14:49 Ashia Robertson PA-C is PHCP. sb4 14:49 Hudson Muñoz MD is Attending Physician. sb4 15:18 Triage completed. db 15:19 Arm band placed on. db 16:06 Rylee Franco, DEENA is Primary Nurse. mb9 16:07 Placed in gown. Bed in low position. Call light in reach. Side rails up X 1. Provided mb9 Education on: press call light if needing anything. Client placed on continuous cardiac and pulse oximetry monitoring. NIBP monitoring applied. 16:07 No provider procedures requiring assistance completed. mb9 16:10 Black cath removed intact, balloon deflated. zm 16:18 Black cath inserted, using sterile technique, 16 Fr., by me, balloon inflated, to zm gravity drainage, returned cloudy urine. Patient tolerated well. 16:24 Ricky Navarrete MD is Referral Physician. sb4 16:29 Patient did not have IV access during this emergency room visit. mb9 Administered Medications: No medications were administered Medication: 16:07 VIS not applicable for this client. mb9 Outcome: 16:24 Discharge ordered by . sb4 16:29 Discharged to home ambulatory, mb9 16:29 Condition: stable 16:29 Discharge instructions given to patient, Instructed on discharge instructions, follow up and referral plans. Demonstrated understanding of instructions, follow-up care, 16:29 Patient left the ED. mb9 Signatures: Jael Salazar Danielle, RN RN Ashia Orr PA-C PA-C sb4 Rylee Franco, RN RN mb9 Arlene Rodríguez
--- NOTE | 2023-09-03 16:24 | EDPHYS ---
Physician Documentation [facility] Name: Mathew Porter Age: 62 yrs Sex: Male : 1960 Arrival Date: 09/03/2023 Time: 14:36 Bed 4 Private MD: ED Physician Hudson Muñoz HPI: 09/02 15:19 This 62 yrs old Male presents to ER via Ambulatory with complaints of Needs Urinary sb4 Catheter Replacement. Historical: - Allergies: 15:18 NKA; db - PMHx: 15:18 Schizophrenia; db - PSHx: 15:18 Urolift (December); db - Immunization history:: Adult Immunizations unknown. - Infectious Disease History:: Denies. - Social history:: Smoking status: Patient reports the use of cigarette tobacco products, smokes one pack cigarettes per day. ROS: 15:19 Constitutional: Negative for fever, chills, and weight loss, sb4 15:19 All other systems are negative, Exam: 15:19 Constitutional: This is a well developed, well nourished patient who is awake, alert, sb4 and in no acute distress. Head/Face: Normocephalic, atraumatic. Eyes: Extra-ocular motions intact. Periorbital areas with no swelling, redness, or edema. ENT: Mucous membranes moist. Vital Signs: 15:16 BP 144 / 92; Pulse 68; Resp 16; Temp 96.6; Pulse Ox 95% ; Weight 69.85 kg; Height 5 ft. db 9 in. ; 16:29 Pulse 70; Resp 18; Temp 97.5(O); Pulse Ox 100% ; mb9 15:16 Body Mass Index 22.74 (69.85 kg, 175.26 cm) db MDM: 15:18 Patient medically screened. sb4 15:19 Data reviewed: vital signs, nurses notes, and as a result, I will discharge patient. sb4 09/02 15:19 Order name: Misc. Order: replace johns catheter; Complete Time: 16:17 sb4 Administered Medications: No medications were administered Disposition Summary: 09/03/23 16:24 Discharge Ordered Notes: Location: Home sb4 Problem: new sb4 Symptoms: are resolved sb4 Condition: Stable sb4 Diagnosis - encounter for exchange of urinary catheter sb4 - encounter for exchange of urinary johns catheter sb4 Followup: sb4 - With: Ricky Navarrete MD - When: 1 week - Reason: Recheck today's complaints, Re-evaluation by your physician Discharge Instructions: - Discharge Summary Sheet sb4 - Indwelling Urinary Catheter Care, Adult, Ldmd-ry-Sgmi sb4 Forms: - Patient Portal Instructions sb4 - Leadership Thank You Letter sb4 Signatures: Mariangel Westbrook RN RN Ashia Orr PA-C PA-C sb4
[2023-09-03 17:30] VITALS: BP 144/92; TEMP 97.5; O2SAT 100
== END 2023-09-03 16:29 | disposition home or self-care (01) ==
LOC: ER 14:36
DX: Z46.6 Encounter for fitting and adjustment of urinary device (principal); F20.9 Schizophrenia, unspecified; F17.210 Nicotine dependence, cigarettes, uncomplicated
CPT/HCPCS: 51702; 99284

== ENCOUNTER 2023-10-02 11:44 | Emergency (ER) | payer OTHER ==
--- OUTSIDE RECORDS SUMMARY | 2023-10-02 11:52 | XMS REPORT | Continuity of Care Document ---
Author Name Unknown Address [address] [facility] [place]. 1 [address] [place] [id number] [facility] thconnect Address [address] [facility] [place] 1 [address] [place] [address] Care Team Providers Care Managing Supervisor Name Role Phone Salinas Alba I Attending [...] s DA Active U 10-16 00:00: 00 [facility] Encounters Start Date/Time End Date/Time Encounter Type Admission Type Attending Clinicians Care Facility Care Department Encounter ID Source 2023-01-21 06:38:00 2023-01-22 20:00:00 Inpatient EM Salinas Alba [facility]01 [id number] 65 [facility] 2023-01-06 15:12:00 2023-01-11 21:08:00 Inpatient EM Salinas Alba [facility]01 [id number] 41 [facility] 2022-10-16 05:03:00 2022-10-26 19:41:00 Inpatient EM Salinas Alba [facility]01 [id number] 28 [facility] Results Test Description Test Time Test Comments Results Resul t Comments Source - CT ABD PELVIS W/CONT 2023-01-05 8 13:00:00 [facility] 1960 Sex: M Name: MATHEW CASTILLO [facility] : 1960 Age/S: 62 / M [address] [place] [address] Blvd Unit #: [id number] Loc: [place] [address] Phys: Sofia Cheng [employer] Acct: [id number] Dis Date: Status: ADM IN PHONE #: [phone] Exam Date: 01/22/2023 1231 FAX #: [phone] Reason: ABD PAIN EXAMS: CPT CODE: [id number] CT ABD PELVIS W/CONT 86374 EXAM: CT abdomen and pelvis with contrast [...] 1 Signed Report (CONTINUED) Name: MATHEW CASTILLO [facility] : 1960 Age/S: 62 / M [address] [place] [address] Blvd Unit #: [id number] Loc: [place] [address] Phys: Sofia Cheng [employer] Acct: [id number] Dis Date: Status: ADM IN PHONE #: [phone] Exam Date: 01/22/2023 1231 FAX #: [phone] Reason: ABD PAIN EXAMS: CPT CODE: [id number] CT ABD PELVIS W/CONT 65312 (Continued) abdominal aortic aneurysm. Pelvic organs/bladder: Moderate [...] M.D. CC: Lakhwinder Guillermo MD; Sofia Cheng [employer]; Salinas Dukes MD Technologist:Rick Moran Jr, RT(R)(CT) CTDI: DLP: Trnscb Date/Time: 01/22/2023 (1300) t.SDR.BC0 Orig Print D/T: S: 01/22/2023 (5676) PAGE 2 Signed Report [id number] 07:46:00* Test Item Value Reference Range Interpretation Comme nts PHOSPHOROUS (test code = PHOS) 2.4 MG/DL 2.5-4.9 L [id number] 07:46:00* Test Item Value Reference Range Interpretation Comme nts MAGNESIUM (test code = MAG) 1.69 mg/dL 1.6-2.6 N NOTE: NEW NORMAL RANGE CBC W/AUTO [id number] 07:05:00* Test Item Value Reference Range Interpretation [...] 0.00 x10 3/uL 0.0-0.1 N BASIC METABOLIC [id number] 06:08:00* Test Item Value Reference Range Interpretation [...] CA) 8.2 mg/dL 8.0-10.5 N CBC W/AUTO [id number] 05:57:00* Test Item Value Reference Range Interpretation [...] c ode = MDIFF) NO CBC W/AUTO [id number] 08:15:00* Test Item Value Reference Range Interpretation [...] 0.00 x10 3/uL 0.0-0.1 N BASIC METABOLIC [id number] 07:28:00* Test Item Value Reference Range Interpretation [...] CA) 8.6 mg/dL 8.0-10.5 N BASIC METABOLIC [id number] 07:46:00* Test Item Value Reference Range Interpretation [...] CA) 8.7 mg/dL 8.0-10.5 N CBC W/AUTO [id number] 07:34:00* Test Item Value Reference Range Interpretation [...] 0.00 x10 3/uL 0.0-0.1 N CBC W/AUTO [id number] 08:43:00* Test Item Value Reference Range Interpretation [...] c ode = MDIFF) NO BASIC METABOLIC [id number] 07:14:00* Test Item Value Reference Range Interpretation [...] CA) 7.8 mg/dL 8.0-10.5 L CBC W/AUTO [id number] 08:58:00* Test Item Value Reference Range Interpretation [...] c ode = MDIFF) NO BASIC METABOLIC [id number] 08:27:00* Test Item Value Reference Range Interpretation [...] HGBA1C%) 5.1 %A1C 4.8-6.0 N CBC W/AUTO [id number] 08:05:00* Test Item Value Reference Range Interpretation [...] (test code = MDIFF) NO BASIC METABOLIC [id number] 07:46:00* Test Item Value Reference Range Interpretation [...] = LDL) 104.0 mg/dL 0-100 H <100 HXHTVEY39 0-129 NEAR OPTIMAL/ABOVE [id number] UVNVWFQBWB980-545 HIGH>EO=883 VERY HIGH*Guidelines provided by the National Cholesterol EducationProgram Adult Treatment Panel III [id number] 07:46:00* Test Item Value Reference Range Interpretation Comme nts PHOSPHOROUS (test code = PHOS) 3.4 MG/DL 2.5-4.9 N [id number] 07:46:00* Test Item Value Reference Range Interpretation Comme nts MAGNESIUM (test code = MAG) 1.69 mg/dL 1.6-2.6 N NOTE: NEW NORMAL RANGE TSH REFLEX TO [id number] 07:46:00* Test Item Value Reference Range Interpretation Comme nts TSH REFLEX TO FT4 (test code = TSHREFLEX) 2.37 IU/mL 0.42-5.47 N LACTIC [id number] 05:48:00* Test Item Value Reference Range Interpretation Comme nts LACTIC ACID (test code = LACT) 1.1 mmol/L 0.4-1.9 N LACTIC ACID [id number] 02:38:00* Test Item Value Reference Range Interpretation Comme nts LACTIC ACID REPEAT (test cod e = LACTR) 0.9 mmol/l 0.4-1.9 N CALLED SEVERINO @01:18 TO REMIND WE NEEDED REPEATLACTIC [id number] 22:36:00* Test Item Value Reference Range Interpretation Comme nts LACTIC ACID (test code = LACT) 2.9 mmol/L 0.4-1.9 H UA RFLX MICR CULT IF [id number] 22:35:00* Test Item Value Reference Range Interpretation [...] Less than 14 days- CT ABD PELVIS [id number] 22:24:00 [facility] : 1960 Sex: M Name: MATHEW CASTILLO [facility] : 1960 Age/S: 62 / M [address] [facility] [address] Unit #: [id number] Loc: [place] [address] Phys: Vee Horton Acct: [id number] Dis Date: Status: [facility] ER PHONE #: [phone] Exam Date: 01/04/2023 0940 FAX #: [phone] Reason: GROSS HEMATURIA EXAMS: CPT CODE: [id number] CT ABD PELVIS W/CONT 79104 H 20 TIME OF STUDY: 01/04/2023 7:55 [...] 1 Signed Report (CONTINUED) Name: MATHEW CASTILLO [facility] : 1960 Age/S: 62 / M [address] [place] [address] Bl Unit #: [id number] Loc: [place] [address] Phys: Vee Horton Acct: [id number] Dis Date: Status: REG ER PHONE #: [phone] Exam Date: 01/04/2023 09 FAX #: [phone] Reason: GROSS HEMATURIA EXAMS: CPT CODE: [id number] CT ABD PELVIS W/CONT 57974 (Continued) at 2224 Reported and signed by: Zia Magaña M.D. CC: Lakhwinder Guillermo MD; Vee Horton; Javier Sullivan MD Technologist:Latoya Moeller, RT(R); Lesvia Humphries CTDI: DLP: Trnscb Date/Time: 01/04/2023 (2223) t.SDR.SI1 Orig Print D/T: S: 01/04/2023 (2226) PAGE 2 Signed ReportCOMPREHENSIVE METABOLIC [id number] 21:07:00* Test Item Value Reference Range Interpretation [...] ALKP) 60 IUnit/L 20-125 N CBC W/AUTO [id number] 20:38:00* Test Item Value Reference Range Interpretation [...] (test code = MDIFF) NO BASIC METABOLIC [id number] 08:30:00* Test Item Value Reference Range Interpretation [...] reported result: 4.9 mg/dLEdited by: KRISTEN on 10/31/22:185030 0829: CA previously reported as: 4.9 *L mg/dL Critical [place] [address]/16/22 Nurse read back result and tech confirmed it's correct? Y GLUCOSE [id number] 17:27:00* Test Item Value Reference Range Interpretation Comme nts GLUCOSE BEDSIDE (test code = GLUBED) 109 MG/DL 70-110 N Performed by teto tse at [facility] GLUCOSE [id number] 12:34:00* Test Item Value Reference Range Interpretation Comme nts GLUCOSE BEDSIDE (test code = GLUBED) 95 MG/DL 70-110 N Performed by cer tified fire production operator at [facility] GLUCOSE [id number] 08:49:00* Test Item Value Reference Range Interpretation Comme nts GLUCOSE BEDSIDE (test code = GLUBED) 117 MG/DL 70-110 H Performed by cer tified fire production operator at [facility] BASIC METABOLIC [id number] 07:57:00* Test Item Value Reference Range Interpretation [...] = CA) 8.1 mg/dL 8.0-10.5 N GLUCOSE [id number] 17:07:00* Test Item Value Reference Range Interpretation Comme nts GLUCOSE BEDSIDE (test code = GLUBED) 127 MG/DL 70-110 H Performed by cer tified fire production operator at [facility] GLUCOSE [id number] 12:26:00* Test Item Value Reference Range Interpretation Comme nts GLUCOSE BEDSIDE (test code = GLUBED) 123 MG/DL 70-110 H Performed by cer tified fire production operator at [facility] GLUCOSE [id number] 07:59:00* Test Item Value Reference Range Interpretation Comme nts GLUCOSE BEDSIDE (test code = GLUBED) 92 MG/DL 70-110 N Performed by cer violeta fire production operator at [facility] BASIC METABOLIC [id number] 07:38:00* Test Item Value Reference Range Interpretation [...] CA) 7.8 mg/dL 8.0-10.5 L CBC W/AUTO [id number] 07:27:00* Test Item Value Reference Range Interpretation [...] REQUIRED (test code = MDIFF) NO GLUCOSE [id number] 21:25:00* Test Item Value Reference Range Interpretation Comme nts GLUCOSE BEDSIDE (test code = GLUBED) 154 MG/DL 70-110 H Performed by cer tified fire production operator at [facility] GLUCOSE [id number] 17:43:00* Test Item Value Reference Range Interpretation Comme nts GLUCOSE BEDSIDE (test code = GLUBED) 73 MG/DL 70-110 N Performed by cer tified fire production operator at [facility] GLUCOSE [id number] 10:08:00* Test Item Value Reference Range Interpretation Comme nts GLUCOSE BEDSIDE (test code = GLUBED) 87 MG/DL 70-110 N Performed by cer tified fire production operator at [facility] GLUCOSE [id number] 20:12:00* Test Item Value Reference Range Interpretation Comme nts GLUCOSE BEDSIDE (test code = GLUBED) 139 MG/DL 70-110 H Performed by cer tified fire production operator at [facility] GLUCOSE [id number] 17:32:00* Test Item Value Reference Range Interpretation Comme nts GLUCOSE BEDSIDE (test code = GLUBED) 79 MG/DL 70-110 N Performed by cer tified fire production operator at [facility] GLUCOSE [id number] 12:14:00* Test Item Value Reference Range Interpretation Comme nts GLUCOSE BEDSIDE (test code = GLUBED) 98 MG/DL 70-110 N Performed by cer tified fire production operator at [facility] GLUCOSE [id number] 08:36:00* Test Item Value Reference Range Interpretation Comme nts GLUCOSE BEDSIDE (test code = GLUBED) 92 MG/DL 70-110 N Performed by cer tified fire production operator at [facility] BASIC METABOLIC [id number] 07:50:00* Test Item Value Reference Range Interpretation [...] code = CA) 7.6 mg/dL 8.0-10.5 L [id number] 07:50:00* Test Item Value Reference Range Interpretation Comme nts MAGNESIUM (test code = MAG) 1.53 mg/dL 1.80-2.40 L - CTA CHEST FOR [id number] 00:00:00 [facility] 1960 Sex: M Name: MATHEW CASTILLO [facility] : 1960 Age/S: 62 / M [address] [address] Blvd Unit #: [id number] Loc: [place] [address] Phys: Sofia Cheng [employer] Acct: [id number] Dis Date:Status: ADM IN PHONE #: [phone] Exam Date: 10/23/2022 172 FAX #: [phone] Reason: ELEVATED D DIMER EXAMS: CPT CODE: [id number] [place] [address] PROCEDURE INFORMATION: Exam: CTA ChestWith Contrast Exam [...] 1 Signed Report (CONTINUED) Name: MATHEW CASTILLO [facility] : 1960 Age/S: 62 / M [address] [place] [address] Unit #: [id number] Loc: [id number] Phys: Sofia Cheng [employer] Acct: [id number] Dis Date: Status: ADM IN PHONE #: [phone] Exam Date: 10/23/2022 1722 FAX #: [phone] Reason: ELEVATED D DIMER EXAMS: CPT CODE: [id number] [place] [address] (Continued) flexure compatible with colitis incompletely evaluated. [...] by: Hayden Rg M.D. CC: Sofia Cheng [employer]; Salinas Dukes MD Technologist:Latoya Pérez, RT(R)(CT); . CTDI: DLP: Trnscb Date/Time: 10/23/2022 (2012) tHILARIOR.JT18 Orig Print D/T: S: 10/23/2022 (2012) PAGE 2 Signed ReportGLUCOSE [id number] 20:23:00* Test Item Value Reference Range Interpretation Comme nts GLUCOSE BEDSIDE (test code = GLUBED) 123 MG/DL 70-110 H Performed by [facility] avera tified fire production operator at [facility] GLUCOSE [id number] 17:34:00* Test Item Value Reference Range Interpretation Comme nts GLUCOSE BEDSIDE (test code = GLUBED) 132 MG/DL 70-110 H Performed by [facility] avera tified fire production operator at [facility] GLUCOSE [id number] 11:57:00* Test Item Value Reference Range Interpretation Comme nts GLUCOSE BEDSIDE (test code = GLUBED) 118 MG/DL 70-110 H Performed by [facility] avera tified fire production operator at [facility] GLUCOSE [id number] 08:22:00* Test Item Value Reference Range Interpretation Comme nts GLUCOSE BEDSIDE (test code = GLUBED) 100 MG/DL 70-110 N Performed by [facility] avera [employer] fire production operator at [facility] BASIC METABOLIC [id number] 08:05:00* Test Item Value Reference Range Interpretation [...] code = CA) 7.8 mg/dL 8.0-10.5 L [id number] 08:05:00* Test Item Value Reference Range Interpretation Comme nts MAGNESIUM (test code = MAG) 1.72 mg/dL 1.80-2.40 L GLUCOSE [id number] 21:10:00* Test Item Value Reference Range Interpretation Comme nts GLUCOSE BEDSIDE (test code = GLUBED) 148 MG/DL 70-110 H Performed by cer tified fire production operator at [facility] GLUCOSE [id number] 17:29:00* Test Item Value Reference Range Interpretation Comme nts GLUCOSE BEDSIDE (test code = GLUBED) 102 MG/DL 70-110 N Performed by cer tified fire production operator at [facility] GLUCOSE [id number] 11:54:00* Test Item Value Reference Range Interpretation Comme nts GLUCOSE BEDSIDE (test code = GLUBED) 104 MG/DL 70-110 N Performed by [employer] tifSEJENT fire production operator at [facility] CBC W/MANUAL [id number] 10:35:00* Test Item Value Reference Range Interpretation [...] (test code = PLTMORPH) LARGE PLATELETS GLUCOSE [id number] 07:57:00* Test Item Value Reference Range Interpretation Comme [facility] GLUCOSE BEDSIDE (test code = GLUBED) 95 MG/DL 70-110 N Performed by cer tified fire production operator at [facility] C REACTIVE [id number] 07:48:00* Test Item Value Reference Range Interpretation Comme [facility] C REACTIVE PROTEIN (test cod e = CRP) 36.0 mg/L <10.0 H BASIC METABOLIC [id number] 07:40:00* Test Item Value Reference Range Interpretation [...] code = CA) 7.3 mg/dL 8.0-10.5 L [id number] 07:40:00* Test Item Value Reference Range Interpretation Comme nts MAGNESIUM (test code = MAG) 1.50 mg/dL 1.80-2.40 L [id number] 07:04:00* Test Item Value Reference Range Interpretation Comme nts D-DIMER (test code = DDIMER) 5949 ng/mlFEU See_Comment HH Critical result called to Brigido RUIZLAB.JJ1 at 0701 10/21/22Nurse read back result and tech confirmed it's correct? YESTHROMBOSIS AND/OR PULMONARY EMBOLISM AND THE CLINICAL CUT- OFF VALUE FOR EXCLUSION (500 ng/mL FEU) OF THESE CONDITIONSIS VALIDATED BY THE GEOTECHNICAL DEPARTMENT MANAGER OF THE METHOD. A NEGATIVE D-DIMER [...] this result as normal/abnormal. - DUP VEIN [id number] 00:00:00 [facility] : 1960 Sex: M Name: MATHEW CASTILLO [facility] Barrera Huang : 1960 Age/S: 62 / M [address] [place] [address] Unit #: [id number] Loc: [place] [address] Phys: Skip Jaffe MD Acct: [id number] Dis Date: Status: ADM IN PHONE #: [phone] Exam Date: 10/21/2022820 FAX #: [phone] Reason: R/o DVT EXAMS: CPT CODE: [id number] DUP VEIN ASAEL 10213 PROCEDURE INFORMATION: Exam: US Duplex Lower Extremity [...] MD; Salinas Paris MD Technologist: [facility] Date/Time: 10/21/2022 (911) t.SDR.AB61 Orig Print D/T:S: 10/21/2022 (911) Probe: PAGE 1 Signed Report GLUCOSE [id number] 20:40:00* Test Item Value Reference Range Interpretation Comme nts GLUCOSE BEDSIDE (test code = GLUBED) 148 MG/DL 70-110 H Performed by cer tified fire production operator at [facility] GLUCOSE [id number] 16:46:00* Test Item Value Reference Range Interpretation Comme nts GLUCOSE BEDSIDE (test code = GLUBED) 118 MG/DL 70-110 H Performed by cer tified fire production operator at [facility] GLUCOSE [id number] 16:46:00* Test Item Value Reference Range Interpretation Comme nts GLUCOSE BEDSIDE (test code = GLUBED) 122 MG/DL 70-110 H Performed by cer tified fire production operator at [facility] TROP-I HIGH [id number] 15:04:00* Test Item Value Reference Range Interpretation Comme [facility] TROP-I HIGH SENSITIVITY (test code [...] URL. These results were obtained using Siemens AteCortex IM TnIHreagent. Results from different methodologies should not becompared to one another as quantitative results and URLs mayvary by method. BASIC METABOLIC [id number] 15:04:00* Test Item Value Reference Range Interpretation [...] CA) 7.1 mg/dL 8.0-10.5 L TROP-I HIGH [id number] 10:07:00* Test Item Value Reference Range Interpretation [...] URL. These results were obtained using Siemens H-care IM TnIHreagent. Results from different methodologies should not becompared to one another as quantitative results and URLs mayvary by method. CBC W/AUTO [id number] 09:54:00* Test Item Value Reference Range Interpretation [...] (test code = MDIFF) NO TROP-I HIGH [id number] 09:24:00* Test Item Value Reference Range Interpretation [...] URL. These results were obtained using Siemens [employer] Genius IM TnIHreagent. Results from different methodologies should not becompared to one another as quantitative results and URLs mayvary by method. GLUCOSE [id number] 08:49:00* Test Item Value Reference Range Interpretation Comme nts GLUCOSE BEDSIDE (test code = GLUBED) 102 MG/DL 70-110 N Performed by teto mcdaniel fire production operator at [facility] COMPREHENSIVE METABOLIC [id number] 02:08:00* Test Item Value Reference Range Interpretation [...] code = ALKP) 47 IUnit/L 20-125 N [id number] 02:08:00* Test Item Value Reference Range [facility]ation [facility] (test code = LIP) 57 U/L 13-57 N PROTHROMBIN [id number] 02:05:00* Test Item Value Reference Range Interpretation [facility] PROTHROMBIN TIME PATIENT (test code = [...] Infarction (to prevent recurrent infarct). THROMBOPLASTIN TIME [id number] 02:05:00* Test Item Value Reference Range Interpretation [facility] THROMBOPLASTIN TIME PARTIAL (test code = PTT) 26.1 Seconds 25.0-39.5 N Therapeutic Rang e: 50.4 - 88.3 Seconds Effective 07/21/2018 LACTIC [id number] 01:59:00* Test Item Value Reference Range Interpretation [facility] LACTIC ACID (test code = LACT) 1.1 mmol/L 0.4-1.9 N CBC W/AUTO [id number] 01:51:00* Test Item Value Reference Range Interpretation [facility] WHITE BLOOD CELL (test code = [...] = MDIFF) NO - XR CHEST 1 [id number] 00:00:00 [facility] 1960 Sex: M FAX: Sofia Cheng NP [phone] [place]: St: [facility] FAX: Salinas Callahan Jacqui [phone] Name: ANNAMATHEW POST [facility] : 1960 Age/S: 62/M [address] [place] [address] Unit #: [id number] Loc: G.[address] [place] [address] Phys: Sofia Cheng NP Acct: [id number] Dis Date: Status: ADM IN PHONE #: [phone] Exam Date: 10/20/2022106 FAX #: [phone] Reason: Sepsis EXAMS: CPT CODE: [id number] XR CHEST 1 V 61996 PROCEDURE INFORMATION: Exam: XR Chest Exam date [...] by: Reinaldo Jacobs M.D. CC: Sofia Cheng [employer]; Salinas Dukes MD Technologist: RT Nadeem(R) Trnscrd Date/Time/By: 10/20/2022 (213) : By: [id number] Orig Print D/T: S: 10/20/2022 (5) PAGE 1 Signed ReportGLUCOSE [id number] 21:00:00* Test Item Value Reference Range Interpretation Comme nts GLUCOSE BEDSIDE (test code = GLUBED) 135 MG/DL 70-110 H Performed by cer tified fire production operator at [facility] URINALYSIS [id number] 20:03:00* Test Item Value Reference Range Interpretation [...] MUCU) 1+ /LPF NONE SEEN UR SODIUM [id number] 20:03:00* Test Item Value Reference Range Interpretation Comme nts UR SODIUM RANDOM (test code = ALPHONSE) 102 MEQ/L The Reference Ra nge and Method Performance specificationshave not been established for this fluid. The test resultshould be correlated into the clinical context forinterpretation. UR PROTEIN [id number] 20:03:00* Test Item Value Reference Range Interpretation Comme nts UR PROTEIN RANDOM (test code = PROTU) 79 mg/dL UR CREATININE [id number] 20:03:00* Test Item Value Reference Range Interpretation Comme nts UR CREATININE RANDOM (test code = CREATU) 111.9 mg/dL The Reference Ra nge and Method Performance specificationshave not been established for this fluid. The test resultshould be correlated into the clinical context forinterpretation. UR OSMOLALITY [id number] 20:03:00* Test Item Value Reference Range Interpretation Comme nts UR OSMOLALITY RANDOM (test c ode = OSMOU) 575 MOS/KG 300-1000 UR OSMOLALITY [id number] 20:02:00* Test Item Value Reference Range Interpretation Comme nts UR OSMOLALITY RANDOM (test c ode = OSMOU) 575 MOS/KG 300-1000 N GLUCOSE [id number] 17:18:00* Test Item Value Reference Range Interpretation Comme nts GLUCOSE BEDSIDE (test code = GLUBED) 122 MG/DL 70-110 H Performed by cer tified fire production operator at [facility] GLUCOSE [id number] 12:48:00* Test Item Value Reference Range Interpretation Comme nts GLUCOSE BEDSIDE (test code = GLUBED) 109 MG/DL 70-110 N Performed by cer tified fire production operator at [facility] GLUCOSE [id number] 07:53:00* Test Item Value Reference Range Interpretation Comme nts GLUCOSE BEDSIDE (test code = GLUBED) 96 MG/DL 70-110 N Performed by [employer] tified fire production operator at [facility] BASIC METABOLIC [id number] 07:51:00* Test Item Value Reference Range Interpretation [...] code = CA) 7.5 mg/dL 8.0-10.5 L [id number] 07:51:00* Test Item Value Reference Range Interpretation Comme nts MAGNESIUM (test code = MAG) 1.65 mg/dL 1.80-2.40 L CBC W/AUTO [id number] 07:07:00* Test Item Value Reference Range Interpretation [...] (test c ode = MDIFF) NO GLUCOSE [id number] 20:44:00* Test Item Value Reference Range Interpretation Comme nts GLUCOSE BEDSIDE (test code = GLUBED) 116 MG/DL 70-110 H Performed by cer tified fire production operator at [facility] GLUCOSE [id number] 18:07:00* Test Item Value Reference Range Interpretation Comme nts GLUCOSE BEDSIDE (test code = GLUBED) 98 MG/DL 70-110 N Performed by cer tified fire production operator at [facility] GLUCOSE [id number] 12:23:00* Test Item Value Reference Range Interpretation Comme nts GLUCOSE BEDSIDE (test code = GLUBED) 135 MG/DL 70-110 H Performed by cer tified fire production operator at [facility] GLUCOSE [id number] 11:22:00* Test Item Value Reference Range Interpretation Comme nts GLUCOSE BEDSIDE (test code = GLUBED) 104 MG/DL 70-110 N Performed by [facility] avera tified fire production operator at [facility] BASIC METABOLIC [id number] 08:12:00* Test Item Value Reference Range Interpretation [...] code = CA) 7.4 mg/dL 8.0-10.5 L QLQVZDYWT6286-65-63 08:12:00* Test Item Value Reference Range Interpretation Comme nts MAGNESIUM (test code = MAG) 1.48 mg/dL 1.80-2.40 L CBC W/AUTO BMKD4101-43-67 08:09:00* Test Item Value Reference Range Interpretation [...] (test c ode = MDIFF) NO GLUCOSE DMWJMSX0415-33-99 05:56:00* Test Item Value Reference Range Interpretation Comme nts GLUCOSE BEDSIDE (test code = GLUBED) 104 MG/DL 70-110 N Performed by cer tified fire production operator at [facility] GLUCOSE CIFDKLR2672-95-89 03:31:00* Test Item Value Reference Range Interpretation Comme nts GLUCOSE BEDSIDE (test code = GLUBED) 129 MG/DL 70-110 H Performed by cer tified fire production operator at [facility] GLUCOSE RULXVHR0697-54-86 12:50:00* Test Item Value Reference Range Interpretation Comme nts GLUCOSE BEDSIDE (test code = GLUBED) 177 MG/DL 70-110 H Performed by cer tified fire production operator at [facility] CBC W/AUTO FCLK0514-27-96 10:14:00* Test Item Value Reference Range Interpretation [...] 0.00 x10 3/uL 0.0-0.1 N VITAMIN D 71-KAPNSUY7042-59-13 08:19:00* Test Item Value Reference Range Interpretation Comme nts VITAMIN D 25-HYDROXY (test c ode = VITD25) 25.5 ng/mL 30-100 L Indication for Test: PTH DisorderCOMPREHENSIVE METABOLIC EZUOT0241-83-01 08:14:00* Test Item Value Reference Range Interpretation [...] code = ALKP) 62 IUnit/L 20-125 N VFTYJIKCSBJ5611-52-53 08:14:00* Test Item Value Reference Range Interpretation Comme nts PHOSPHOROUS (test code = PHOS) 2.6 MG/DL 2.5-4.9 N AJTVDEPHV1474-19-94 08:14:00* Test Item Value Reference Range Interpretation Comme nts MAGNESIUM (test code = MAG) 1.50 mg/dL 1.80-2.40 L GLUCOSE TWEYEYW8907-25-39 07:40:00* Test Item Value Reference Range Interpretation Comme nts GLUCOSE BEDSIDE (test code = GLUBED) 105 MG/DL 70-110 N Performed by cer tified fire production operator at [facility] GLUCOSE NVJBLFM0143-62-24 17:26:00* Test Item Value Reference Range Interpretation Comme [facility] GLUCOSE BEDSIDE (test code = GLUBED) 113 MG/DL 70-110 H Performed by cer violeta fire production operator at [facility] PROTHROMBIN QTKT0123-41-42 15:23:00* Test Item Value Reference Range Interpretation Comme [facility] PROTHROMBIN TIME PATIENT (test code [...] (to prevent recurrent infarct). TSH REFLEX TO [id number] 14:32:00* Test Item Value Reference Range Interpretation Comme [facility] TSH REFLEX TO FT4 (test code = TSHREFLEX) 1.59 IU/mL 0.42-5.47 N HGBA1C%2022-10-16 14:19:00* Test Item Value Reference Range Interpretation Comme [facility] HGBA1C% (test code = HGBA1C%) 5.5 %A1C 4.8-6.0 N TVZCVHHQV1889-94-28 14:13:00* Test Item Value Reference Range Interpretation Comme [facility] MAGNESIUM (test code = MAG) 1.91 mg/dL 1.80-2.40 N COMPREHENSIVE METABOLIC [id number] 14:13:00* Test Item Value Reference Range Interpretation Comme [facility] SODIUM (test code = NA) [...] = ALKP) 62 IUnit/L 20-125 N GLUCOSE [id number] 12:54:00* Test Item Value Reference Range Interpretation Comme nts GLUCOSE BEDSIDE (test code = GLUBED) 102 MG/DL 70-110 N Performed by cer tified fire production operator at [facility] GLUCOSE UDAQLMN2529-83-05 10:14:00* Test Item Value Reference Range Interpretation Comme nts GLUCOSE BEDSIDE (test code = GLUBED) 110 MG/DL 70-110 N Performed by [employer] fire production operator at [facility] CBC W/AUTO [id number] 05:58:00* Test Item Value Reference Range Interpretation [...] Notes Date/Time Note Provider Source 2023-02-14 02:12:00 [id number] VK0aht/hnkf0e7ca2um5jNdXFPbV5 +zf1LMQGxGD4LA/wXeDL3gyZA/k5459-13-18L38:12:00 [facility] ([facility])Discharge SummaryREPORT#:[id number] REPORT STATUS: SignedREPORT INITIALIZATION DATE:02/14/23 TIME: 211 PATIENT: MATHEW CASTILLO UNIT #: [id number]#: [id number] ROOM/BED: 5507-1DOB: [birth year] AGE: 62 SEX: M [...] HYDRONEPHROSIS J98.11 ATELECTASIS N17.9 ACUTE KIDNEY FAILURE, VLTDWWJVTSOU53.8 OTHER RETENTION OF URINE D72.829 ELEVATED WHITE BLOOD CELL COUNT, UNSPECIFIED E83.39 OTHER DISORDERS OF PHOSPHORUS METABOLISM F20.9 SCHIZOPHRENIA, UNSPECIFIED E83.42 HYPOMAGNESEMIA I10 ESSENTIAL (PRIMARY) HYPERTENSION 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 N40.1 BENIGN PROSTATIC HYPERPLASIA WITH LOWER URINARY TRACT SYMP Hospital course:62-year-old male with last medical history of, BPH-s/p UroLift 01/03/2023, schizophrenia was transferred from [facility] ER with acute kidney injury and urinary [...] (Auto) (14.0 - 32.0 %) 7.1 L Frio % (Auto) (4.8 - 9.0 %) 8.1 Eos % (Auto) (0.3 - 3.7 %) 0.4 Baso % (Auto) (0.0 - 2.0 %) 0.1 Neut # (Auto) (2.0 - 7.6 x10 3/uL) 9.37 H Lymph # (Auto) (1.0 - 3.8 x10 3/uL) 0.79 L Frio # (Auto) (0.1 - 0.8 x10 3/uL) [...] 3/uL) 0.[address] ABD PELVIS W/CONT 38833 EXAM: CT abdomen and pelvis with contrast [...] Care Discharge InstructionsAdditional Discharge Routines: PCP Follow-Up, Line Prep Cook Follow-Up)( Diet: Regular Follow-up AppointmentsPCP follow up: PCP: Lakhwinder Guillermo MD PCP follow up timeframe: In 5 daysAttending Physician: Attending Physician: Salinas Alba MD Attending physician follow up timeframe: In 1-2 weeksConsulting provider 1: Provider 1: Dave Jones MD Specialty: Urology Consult follow up timeframe: In 1-[address] [place] [address] #:[phone] OF REPORTDSDischarge pyhzbfo9793-86-55W53:12:00G.KYEX90404942-4064XBCm ailable for patient aukaEGCOLRKFBGNYHG4098-43-83S34:16:15 [facility] 2023-02-04 04:06:00 [id number] 0fIpl9jts6YVGMywaLA6vqqv81M27 TWjX+D/FjnLJqbJtjE7G13+zS0D4696-81-81N50:06:00 [facility] ([facility])Discharge SummaryREPORT#:[id number] REPORT STATUS: SignedREPORT INITIALIZATION DATE:02/04/23 TIME: 0406 PATIENT: MATHEW CASTILLO UNIT #: [id number]#: [id number] ROOM/BED: RadhaW802-7JBX: 58 AGE: 62 SEX: M ATTEND: Salinas [...] lift yesterday by Dr. Jones transferred from [place] for urology evaluation secondary tohematuria after bladder irrigation failed. Patient was seen and evaluated by Dr. 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 [facility] with urinary retention.Abnormal labs: WBC [...] range of motion, normal sensory, normal motor functionNeuro/DELIVERER MERCHANDISE: alert, oriented X 3Skin: dry, intact, no [...] % (Auto) (14.0 - 32.0 %) 20.8 Frio % (Auto) (4.8 - 9.0 %) 7.7 Eos % (Auto) (0.3 - 3.7 %) 8.1 H Baso % (Auto) (0.0 - 2.0 %) 0.7 Neut # (Auto) (2.0 - 7.6 x10 3/uL) 4.51 Lymph # (Auto) (1.0 - 3.8 x10 3/uL) 1.51 Frio # (Auto) (0.1 - 0.8 x10 3/uL) [...] 3/uL) 0.[address] ABD PELVIS W/CONT 12183 H 20 TIME OF STUDY: 01/04/2023 7:55 [...] Care Discharge InstructionsAdditional Discharge Routines: PCP Follow-Up, Line Prep Cook Follow-Up)( Diet: Cardiac Follow-up AppointmentsPCP follow up: PCP: Lakhwinder Guillermo MD PCP follow up timeframe: In 5 days Special instructions:CALL TO MAKE APPOINTMENTConsulting provider 1: Provider 1: Dave Jones MD Specialty: Urology Special instructions:CALL TO SCHEDULE APPOINTMENT at [address] [facility] #:[phone] OF REPORTDSDischarge rullojb0217-88-47Y57:06:00G.KUSH54699667-0076IORe ailable for patient rddjJXRZTYXBNBQGEL4729-76-43D53:36:15 [facility] 2023-01-27 18:31:00 [id number] c4pDWc/QKUjerh/nmElei2VelUGL3 KeZPwLMc5o4UO63I8mz56UosaOJ0383-38-54K48:31:92874 3-0230 [place] [address] PATIENT NAME: MATHEW CASTILLO ADMIT DATE: 01/06/23ACCOUNT NO: [id number] ROOM NO: [facility] AGE: 62 REPORT TYPE: 360 - QUERY RESPONSE DOCUMENT SEX: M ADMITTING PHYSICIAN:Salinas Alba MD ATTENDING PHYSICIAN:Salinas Alba MD Provider Query QUERY TEXT: Condition General 360MD Query related questions should be directed to: [facility] Coding Query Helpline [Based on [...] AM at 1831 PATIENT NAME: MATHEW CASTILLO noteG.[id number] for patient mdkjNSVQNIYGSDMNRO4079-64-35R09:31:38 [facility] 2023-01-27 13:09:00 [id number] fqFWbug+aseyPppzw/X2MhobU+/8Y tER/lsghXTz9ua++OtrG5z9UxGm8471-95-13Q00:09:51877 3-0114 [place] [address] PATIENT NAME: MATHEW CASTILLO ADMIT DATE: 01/06/23ACCOUNT NO: [id number] ROOM NO: G.C146 AGE: 62 REPORT TYPE: 360 - QUERY RESPONSE DOCUMENT SEX: M ADMITTING PHYSICIAN:Salinas Alba MD ATTENDING PHYSICIAN:Salinas Alab MD Provider Query QUERY TEXT: Condition General 360MD Query related questions should be directed to: [facility] Coding Query Helpline [Based on your medical judgement and the clinical indicators listed below kindly specify the underlying cause of the patient's heamaturia(Hematuria due to bladder lift surgery, hematuria due to UTI, hematuria unspecified, or other more appropriate diagnosis)?.] The patient's Clinical Indicators include:62-year-old male with last medical history of, BPH, s/p bladder lift yesterdayby Dr. Jones transferred from [place] for urology evaluation secondary tohematuria after bladder [...] AM at 1309 PATIENT NAME: MATHEW CASTILLO noteG.[id number] for patient xielOQPXUTABIVGNAU6110-68-96G85:10:17 [facility] 2023-01-27 13:09:00 [id number] QGOJdlQ2PyF9kO9RKZefTnp2crn0q PNHwR5ppiuDMgM7ZGl/6byPLMvh3937-93-84U23:09:31959 3-0115 [place] [address] PATIENT NAME: MATHEW CASTILLO ADMIT DATE: 01/06/23ACCOUNT NO: [id number] ROOM NO: G.C146 AGE: 62 REPORT TYPE: 360 - QUERY RESPONSE DOCUMENT SEX: M ADMITTING PHYSICIAN:Salinas Alba MD ATTENDING PHYSICIAN:Salinas Alba MD Provider Query QUERY TEXT: Condition General 360MD Query related questions should be directed to: [facility] Coding Query Helpline [Based on [...] likely could be eithercontaminant or sales representative groceries of transient bacteremia: progress note 01/11/2023 Options provided:-- Respond - Create new note now-- Dismiss - Not applicable / Not valid-- Dismiss - Clinically unable to determine / Unknown-- Assign to another provider QUERY RESPONSE: sepsis was not confirmed, patient had localized infection Query created by: MADY PEREZ on 01/22/2023 3:09 AM at 1309 PATIENT NAME: MATHEW CASTILLO noteG.[id number] for patient ebxhIRHDWSBNGOFMLT0948-11-48Q88:10:27 [facility] 2023-01-22 17:40:00 [id number] gEZ3OuUA2EmyiiTJgR6JtG5GBYAnz rP4bxyNylkvidXwpaBRxCOdlldr6785-26-80T97:40:00 [facility]Internal Medicine Prog. NoteREPORT#:[id number] REPORT STATUS: SignedREPORT INITIALIZATION DATE:01/22/23 TIME: 1740 PATIENT: MATHEW CASTILLO UNIT #: [id number]#: [id number] ROOM/BED: 5507-1DOB: [birth year] AGE: 62 SEX: M ATTEND: Salinas Alba I MDADM AUTHOR: Sofia Cheng NPREPT SERVICE DT/TIME: 01/22/23 1740* ALL edits or amendments must be made on the electronic/computer document * Objective GeneralVS/I O:Vital SignsDate Temp Pulse Resp B/P B/P Mean Pulse Ox CuP005/17-01/22 36.6-37.0 78-88 14-20 109-137/64-82 80.9-100.0 95-98 Last [...] Sodium Chloride (SODIUM CHLORIDE 0.9%) 1,000 ML .V59Y32O IV Haloperidol (HALDOL) 10 MG BID PO [...] (Auto) (14.0 - 32.0 %) 9.8 L Frio % (Auto) (4.8 - 9.0 %) 9.0 Eos % (Auto) (0.3 - 3.7 %) 5.7 H Baso % (Auto) (0.0 - 2.0 %) 0.4 Neut # (Auto) (2.0 - 7.6 x10 3/uL) 7.35 Lymph # (Auto) (1.0 - 3.8 x10 3/uL) 0.97 L Frio # (Auto) (0.1 - 0.8 x10 3/uL) [...] notes:discharged see discharge summery at 2132 RPT #:[id number] OF REPORTPRProgress cjxi2886-51-44I25:40:00G.DOLL89850445-0340GQZbmfi able for patient goufVWSQONVYNKUXUU4047-25-01S74:33:02 [facility] 2023-01-22 12:19:00 [id number] MJ/M4djkEmRPNrsPxngUbIpjg2Z// XNw4s5oJv+EiQOkhkOq+JxE04ae5550-30-58Z37:19:00 [facility] ([facility])Nephrology Consultation NoteREPORT#:[id number] REPORT STATUS: SignedREPORT INITIALIZATION DATE:01/22/23 TIME: 1218 PATIENT: MATHEW CASTILLO UNIT #: [id number]#: [id number] [address]OB: [birth year] AGE: 62 SEX: M ATTEND: [...] thepatient given empirc abx and transferred to [facility] yesterday for furtherevaluation and management. Initial VS [...] Time Status Admin Sodium Chloride 1,000 ML .H49V40Z 01/21 2330 AC 01/22 (SODIUM CHLORIDE IV [...] Sodium Chloride (SODIUM CHLORIDE 0.9%) 1,000 ML .N73C38S IV Haloperidol (HALDOL) 10 MG BID PO [...] (Auto) (14.0 - 32.0 %) 9.8 L Frio % (Auto) (4.8 - 9.0 %) 9.0 Eos % (Auto) (0.3 - 3.7 %) 5.7 H Baso % (Auto) (0.0 - 2.0 %) 0.4 Neut # (Auto) (2.0 - 7.6 x10 3/uL) 7.35 Lymph # (Auto) (1.0 - 3.8 x10 3/uL) 0.97 L Frio # (Auto) (0.1 - 0.8 x10 3/uL) [...] and . at 1923 at 1933 RPT #:[id number] OF REPORTUCVdrnvwpnzoid5462-96-83O60:19:00G.PDOC2 7162080-9534EIQnffftfkn for patient vwolLXQRCIHHYOKNSS7883-80-56T49:23:39 [facility] 2023-01-21 19:40:00 [id number] GFFA+AFHimxdUAKSHanlivZ9+XbyB R7lKUpyIoUIh31eFX8VKygte8Cc8757-43-19X18:40:00 [facility])Urology Consult NoteREPORT#:[id number] REPORT STATUS: SignedREPORT INITIALIZATION DATE:01/21/23 TIME: 1939 PATIENT: MATHEW CASTILLO UNIT #: [id number]#: [id number] [address] [birth year] AGE: 62 SEX: M ATTEND: Salinas Alba MDADM AUTHOR: Crystal Alberts MDREPT SERVICE DT/TIME: 01/21/231939* ALL edits or amendments must be made on the electronic/computer document * History of Present Illness HPIRequesting clinician: Dr. Fernanda Gary for consult:Urinary retention Chief complaint:urinary retention HPI:aMthew Castillo is a 2-year-old male with hypertension, schizophrenia, BPH with urinary retention who follows with Dr. Jones and is s/p UroLift 01/03/2023. Patient had readmission earlier this month for hematuria after UroLift however this resolved with conservative measures. He was discharged and then had recent voiding trial 01/14/23 in clinic however send have urinary retention at outside hospital and was transferred to [facility] with acute renal failure and urinary retention. Outside labs showed creatinine of 5.6, GFR 11. They were able to place a catheter at the outside hospital and his creatinine currently is 2.6 GFR 27. Patient feels overall well he has a [address] [place] [address] that is patent and draining [...] (Auto) (14.0 - 32.0 %) 7.1 L Frio % (Auto) (4.8 - 9.0 %) 8.1 Eos % (Auto) (0.3 - 3.7 %) 0.4 Baso % (Auto) (0.0 - 2.0 %) 0.1 Neut # (Auto) (2.0 - 7.6 x10 3/uL) 9.37 H Lymph # (Auto) (1.0 - 3.8 x10 3/uL) 0.79 L Frio # (Auto) (0.1 - 0.8 x10 3/uL) [...] in outside hospital and was transferred to [facility]. He has indwelling Black placed from the outside hospital that is patent and draining clear urine. Creatinine has down trended to 2.6 from 5.6. -Continue indwelling Black do not remove-Trend creatinine-Discussed patient to follow-up with our clinic 01/30/2023 for nurse visit catheter removal and CIC teaching for which he was amenable to trying Crystal Alberts MD -covering for Dr. Jones [facility] at 1949 RPT #:[id number] OF REPORTQEBqekmsemojoy7619-47-22C87:40:00G.PDOC2 3166893-3243ZVFndhpwhpa for patient totlZUBSSZMZPIJOAG6410-95-36M80:48:32 [facility] 2023-01-21 10:48:00 [id number] vzE8uc+EMD3o3FXjnu6d8u8ELQ724 SflXKeNvkD7I3yMhX+6YlDvJq2e9103-88-62F16:48:00 [facility] ([facility])History Physical - AdultREPORT#:[id number] REPORT STATUS: SignedREPORT INITIALIZATION DATE:01/21/23 TIME: 1048 PATIENT: MATHEW CASTILLO UNIT #: [id number]#: [id number] ROOM/BED: 5507-1DOB: [birth year] AGE: 62 SEX: M ATTEND: Salinas Alba I [facility] AUTHOR: Sofia Cheng NPREPT SERVICE DT/TIME: 01/21/23 1048* ALL edits or amendments must be made on the electronic/computer document * History of Present Illness HPIChief complaint:Acute kidney injuryUrinary retentionHPI: 62-year-old male with last medical history of, BPH-s/p UroLift 01/03/2023, schizophrenia was transferred from [facility] ER with acute kidney injury and urinary [...] range of motion, normal sensory, normal motor functionNeuro/DELIVERER MERCHANDISE: alert, oriented X 3Skin: dry, intact, no [...] (Auto) (14.0 - 32.0 %) 7.1 L Frio % (Auto) (4.8 - 9.0 %) 8.1 Eos % (Auto) (0.3 - 3.7 %) 0.4 Baso % (Auto) (0.0 - 2.0 %) 0.1 Neut # (Auto) (2.0 - 7.6 x10 3/uL) 9.37 H Lymph # (Auto) (1.0 - 3.8 x10 3/uL) 0.79 L Frio # (Auto) (0.1 - 0.8 x10 3/uL) [...] range of motion, normal sensory, normal motor functionNeuro/DELIVERER MERCHANDISE: alert, oriented X 3Skin: dry, intact, no gross abnormalitiesPsychiatry: Mild anxiety Diagnosis, Assessment Plan Free Text DxA P NotesFree Text DxA P Notes:Assessment:62-year-old male with last medical history of, BPH-s/p UroLift 01/03/2023, schizophrenia was transferred from [facility] ER with acute kidney injury and urinary [...] clinical course at 0300 at 1108 RPT #:[id number] OF REPORTHPHistory and physical dnstqnjndot5629-56-01R39:48:00G.LSKF54563022-6358 AVAvailable for patient ueltVYGODTUEJXSUKM5612-49-00I16:00:45 [facility] 2023-01-21 05:27:00 [id number]/Lisa dWOCvW8qTA+/X0xvoZSOXZ/wjkHzc stbD39UnDieIV11VNf7ys7BXz7R6691-55-78L07:27:00 [facility] PROVID[facility] REPORTREPORT#:[id number] REPORT STATUS: SignedDATE:01/21/23 TIME: 526 PATIENT: MATHEW CASTILLO UNIT #: [id number]#: [id number] [address] S[address]: M PCP PHYS: Lakhwinder Guillermo MDSERVICE AUTHOR: Elizabeth Davenport APRNNP * ALL edits or amendments must be made on the electronic/computer document * Elizabeth Davenport 01/21/23 0527:HPI-General Illness Free Text HPI NotesFree Text HPI Javbl01-wxai-syg male with PMH as listed below presents to the ER as a transfer from [facility] for diagnoses of ARF, urinary retention. Patient presented to the ER for evaluation of abdominal pain and urine retention that started 1 week ago after having his black catheter removed. A 14fr coude catheter was placed. Diagnostic w/u noted WBC of 14, creatinine 5.6, GFR 11, EOT766. Pt was given cefepime 1 g at 00 37, Merrem 500 mg at 01 56 and 1 L normal saline bolus INSPECTOR RAG SORTING upon arrival, patient notes improved but not completely resolved lower abdominal pain. He denies any additional symptoms such as recentfever, chest pain, shortness of breath, N/V/D/C, testicular pain or any other symptoms. GeneralInitial Greet Date/Time 01/21/23 0514PCPhacktan, uroAMIN, PCP, [facility]eraid PresentationChief Complaint __ (urine [...] No palpable masses or pulsatile masses. Negative Satsuma Sign. [facility]: Indwelling Black, straw-colored, non-cloudy urine, [...] (Auto) (14.0 - 32.0 %) 7.1 L Frio % (Auto) (4.8 - 9.0 %) 8.1 Eos % (Auto) (0.3 - 3.7 %) 0.4 Baso % (Auto) (0.0 - 2.0 %) 0.1 Neut # (Auto) (2.0 - 7.6 x10 3/uL) 9.37 H Lymph # (Auto) (1.0 - 3.8 x10 3/uL) 0.79 L Frio # (Auto) (0.1 - 0.8 x10 3/uL) [...] kidney injury)Secondary Impressions: Obstructive uropathy [facility] MD [facility] Physician Hospitalist Request Time 0623 Request [...] the patient along with involvement of the PA/TEACHER OF THE HEARING IMPAIRED. I agree with the PA/environmental technology professor findings and plan. I have performed all aspects of MDM as documented including: evaluation of the patient/patient's condition(s), review and analysis of available data, and determinationof risk of patient management decisions. at 2244 at 1025RPT #:[id number] OF REPORTEDEmergen department tvrexw3892-16-40Q31:27:00G.TBUB66794751-9819DIYne ilable for patient uyepLDSTSDDTKATVMW7632-33-53A30:46:19 [facility] 2023-01-15 09:31:00 [id number] TkNpnjSpykMnb59RSqSSB/f7c4zTD 23svafzMAT1I2L8HsXS0W917MLT5107-89-13N80:31:95618 1-[address] [address] PATIENT NAME: MATHEW CASTILLO ADMIT DATE: 01/06/23ACCOUNT NO: [id number] ROOM NO: GC146 AGE: 62 REPORT TYPE: 360 - QUERY RESPONSE DOCUMENT SEX: M ADMITTING PHYSICIAN:Salinas Alba MD ATTENDING PHYSICIAN:Salinas Alba MD Provider Query QUERY TEXT: Clarification Rule In Rule Out 360MD Query related questions should be directed to: [facility] Coding Query Help-line Based on [...] AM at 0931 PATIENT NAME: MATHEW CASTILLO noteG.[id number] for patient ixnmCAKXTKMYFTJZDF2588-71-04Z23:31:59 [facility] 2023-01-11 17:08:00 [id number] 9WrdRTo+OF3jrlZVGsMmpj9vxlshz 5V0bb2uTLuWuVPdKSXaXv2sFz5S2709-49-61N61:08:27176 7-0170 [place] [address] PATIENT NAME: MATHEW CASTILLO ADMIT DATE: 01/06/23ACCOUNT NO: [id number] ROOM NO: [facility] AGE: 62 REPORT TYPE: PROGRESS NOTE [...] was [facility] through [facility], and from there, he was [...] likely could be eithercontaminant or sales representative groceries of transient bacteremia. Clinically is doingfairly well. His urine culture has shown growth of Pseudomonas aeruginosa. Fornow, we will continue him on the present treatment, and once he is ready to bedischarged home, we will switch him to oral ciprofloxacin. Discussed with thepatient's nursing staff and with MARLENA Cheng. Dictated By: Skip Jaffe MD Date Dictated: 01/11/2023 17:08:17Date Transcribed: 01/11/2023 18:52:55HA/Nicole #: [id number] ID: [id number] Authenticated and Edited by Skip Jaffe MD On 01/22/23 5:19:12 AM at 0520 PATIENT NAME: MATHEW CASTILLO fxxa6240-91-14V53:52:00G.RHA81531232-1322KDRshmpq ble for patient qlzsCVFSFQEYUERXZE3716-71-01O95:21:34 [facility] 2023-01-10 21:43:00 [id number]+AWu llP0kNr1eso8CM6ICu+PPQmmBxkgp yBriTPW6KhjollK47hoPAvM5BgW1901-17-66R80:43:00 [facility])Internal Medicine Prog. NoteREPORT#:[id number] REPORT STATUS: SignedREPORT INITIALIZATION DATE:01/10/23 TIME: 2142 PATIENT: MATHEW CASTILLO UNIT #: [id number]#: [id number] [address] [birth year] AGE: 62 SEX: M ATTEND: Salinas Alba I [facility] AUTHOR: Sofia Cheng NPREPT SERVICE DT/TIME: 01/10/232142* ALL edits or amendments must be made on the electronic/computer document * SubjectiveChief complaint:HematuriaHPI:62-year-old male with last medical history of, BPH, s/p bladder lift yesterday by Dr. Jones transferred from [place] for urology evaluation secondary tohematuria after bladder irrigation failed. pt was seen and evaluated by Dr. 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 Last admitted to [facility] ED on 10/16/22 with urinary retention. Abnormal labs: [...] MLSodium Chloride (SODIUM CHLORIDE 0.9%) 1,000 ML .[id number] IV (DC) Sodium Chloride (SODIUM CHLORIDE 0.9%) [...] range of motion, normal sensory, normal motor functionNeuro/DELIVERER MERCHANDISE: alert, oriented X 3Skin: dry, intact, no gross abnormalitiesPsychiatry: no hallucinations, normal affect, normal judgment/insight, normal mood, not homicidal, not suicidal Free Text DxA P NotesFree text DxA P notes:Assessment:62-year-old male with last medical history of, BPH, s/p bladder lift yesterday by Dr. Jones transferred from [place] for urology evaluation secondary tohematuria after bladder irrigation failed. pt was seen and evaluated by Dr. 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 Last admitted to [facility] ED on 10/16/22 with urinary retention.Abnormal labs: WBC [...] electrolytesRepeat labsFurther recommendation based on patient's clinical vxrmvg5301/06/2023Vital signs within normal limitsBlood culture shows Enterococcus [...] urology outpatient at 0024 at 0814 RPT #:[id number] OF REPORTPRProgress [id number]:43:00G.[id number] able for patient [id number]:25:19 HCACL 2023-01-10 20:39:00 [id number]/Z+Wz [id number] kMGigPJLV2lna2rH3BOUGx6f+xi1782-88-80X80:39:00 [facility] ([facility])Infectious Dis. Progress NoteREPORT#:[id number] REPORT STATUS: SignedREPORT INITIALIZATION DATE:01/10/23 TIME: 2038 PATIENT: MATHEW CASTILLO UNIT #: [id number]#: [id number] [address] AGE: 62 SEX: M ATTEND: [...] home on oral ciprofloxacin. at 0244 RPT #:[id number] OF REPORTPRProgress hxoq8875-57-28D55:39:00G.CJNU69096422-6257CQRqkga able for patient uioiEIKCFJDZJIZAEQ0972-37-05V58:44:38 [facility] 2023-01-10 08:39:00 [id number] EM+NNpSp0/HII44Ej0Dlmt/zJTMUe eDhGbYsHmLxzbogIOitJJ/Y3k7y3600-37-51H45:39:86773 6-0055 [place] [address] PATIENT NAME: MATHEW CASTILLO ADMIT DATE: 01/06/23ACCOUNT NO: [id number] ROOM NO: [facility] AGE: 62 REPORT TYPE: PROGRESS NOTE [...] Date Dictated: 01/10/2023 08:39:27Date Transcribed: 01/10/2023 09:42:11HA/KYLE Jjefvid ID: [id number] Authenticated and Edited by Skip Jaffe MD On 01/22/23 5:19:04 AM at 0520 PATIENT NAME: MATHEW CASTILLO bbbj7138-32-79L96:42:00G.HIA17219518-2226NJUepgwu ble for patient massIRPJBJZAXYSPVF9485-56-66O78:21:54 [facility] 2023-01-09 22:29:00 [id number] rI2Tez6wLBFiv043bVoB5KeyzhLpe rxBO29xnKIeO6VASMZQ20gyNl1g6032-50-53N91:29:00 [facility] ([facility])Internal Medicine Prog. NoteREPORT#:[id number] REPORT STATUS: SignedREPORT INITIALIZATION DATE:01/09/23 TIME: 2228 PATIENT: MATHEW CASTILLO UNIT #: [id number]#: [id number] [address] AGE: 62 SEX: M ATTEND: Salinas Alba I MDABRADEN AUTHOR: Sofia Cheng NPREPT SERVICE DT/TIME: 01/09/232228* ALL edits or amendments must be made on the electronic/computer document * SubjectiveChief complaint:HematuriaHPI:62-year-old male with last medical history of, BPH, s/p bladder lift yesterday by Dr. Jones transferred from [place] for urology evaluation secondary tohematuria after bladder irrigation failed. pt was seen and evaluated by Dr. 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 Last admitted to [facility] ED on 10/16/22 with urinary retention. Abnormal labs: [...] MLSodium Chloride (SODIUM CHLORIDE 0.9%) 1,000 ML .E70M31P IV Sodium Chloride (SODIUM CHLORIDE 0.9%) 1,000 [...] % (Auto) (14.0 - 32.0 %) 20.8 Frio % (Auto) (4.8 - 9.0 %) 7.7 Eos % (Auto) (0.3 - 3.7 %) 8.1 H Baso % (Auto) (0.0 - 2.0 %) 0.7 Neut # (Auto) (2.0 - 7.6 x10 3/uL) 4.51 Lymph # (Auto) (1.0 - 3.8 x10 3/uL) 1.51 Frio # (Auto) (0.1 - 0.8 x10 3/uL) [...] range of motion, normal sensory, normal motor functionNeuro/DELIVERER MERCHANDISE: alert, oriented X 3Skin: dry, intact, no gross abnormalitiesPsychiatry: no hallucinations, normal affect, normal judgment/insight, normal mood, not homicidal, not suicidal Free Text DxA P NotesFree text DxA P notes:Assessment:62-year-old male with last medical history of, BPH, s/p bladder lift yesterday by Dr. Jones transferred from [place] for urology evaluation secondary tohematuria after bladder irrigation failed. pt was seen and evaluated by Dr. 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 Last admitted to [facility] ED on 10/16/22 with urinary retention.Abnormal labs: WBC [...] electrolytesRepeat labsFurther recommendation based on patient's clinical gxwuii1701/06/2023Vital signs within normal limitsBlood culture shows Enterococcus [...] as neededContinue medications and present care at 2947 at 1240 RPT #:[id number] OF REPORTPRProgress kmdk8692-10-62P26:29:00G.SDDR02539355-3535TTWpdwm able for patient cbxxEJAONSIIYJWKDP2546-72-66T47:59:46 [facility] 2023-01-09 19:20:00 [id number] +sml8EJMtfNaGfZaUqrjhkV6CD2YW 6TrkQRn8RFxVuuA7NNJSnXiCcHs1972-78-28D29:20:00 [facility] ([facility])Infectious Dis. Progress NoteREPORT#:[id number] REPORT STATUS: SignedREPORT INITIALIZATION DATE:01/09/23 TIME: 1919 PATIENT: MATHEW CASTILLO UNIT #: [id number]#: [id number] [address] [birth year] AGE: 62 SEX: M ATTEND: [...] him home on oral ciprofloxacin. at 0432 [facility] #:[id number] OF REPORTPRProgress oxgt2673-32-21C62:20:00G.DNTC04110692-3657MJBrlok able for patient cvwpWRNIXWVFJRGPJS9366-72-15M45:33:11 [facility] 2023-01-09 18:36:00 [id number] EwCuMp8Y2cWHS1AqRlpLT1q2EwGmf 3nFFRFn0q2SQ0/m8ceWbxvi83zI5369-39-54R22:36:08500 5-0330 [place] [address] PATIENT NAME: MATHEW CASTILLO ADMIT DATE: 01/06/23ACCOUNT NO: [id number] ROOM NO: [facility] AGE: 62 REPORT [...] was PATIENT NAME: MATHEW CASTILLO admitted to [place], and [facility] The patient was on [facility], [...] Transcribed: 01/09/2023 20:19:12/[facility] Uflatqq ID: [id number] Authenticated and Edited by Skip Jaffe MD On 01/22/23 5:18:55 AM at 0520 PATIENT NAME: MATHEW CASTILLO zxns7290-76-89W45:19:00G.RNW05583899-0445RQHclydr ble for patient pgtiSROSVSBCXLLFYI2476-62-19Z96:21:54 [facility] 2023-01-09 11:30:00 [id number] SBno9CrQV6s5jBx7+xt9J1iurPU0Y OzCGCft11IETdLDG684Gowk3Ahj8496-54-80S80:30:00 [facility] ([facility])Urology Progress NoteREPORT#:[id number] REPORT STATUS: SignedREPORT INITIALIZATION DATE:01/09/23 TIME: 1129 PATIENT: MATHEW CASTILLO UNIT #: [id number]#: [id number] [address] AGE: 62 SEX: M ATTEND: Salinas [...] as planned in clinic at 1131 RPT #:[id number] OF REPORTPRProgress guwx9941-77-71E78:30:00G.PWAY10571059-1406PHZlfws able for patient enrvYRRLITTIRCZSEQ7282-50-94S18:32:06 [facility] 2023-01-08 21:19:00 [id number] yom/ZlmVBFipusHma/kc5gQbynR5l bmgwMMuXurcJPxvBfu0smFjmsbz9160-71-50F65:19:00 [facility] Prog. NoteREPORT#:[id number] REPORT STATUS: SignedREPORT INITIALIZATION DATE:01/08/23 TIME: 2118 PATIENT: MATHEW CASTILLO UNIT #: [id number]#: [id number] [address] AGE: 62 SEX: M ATTEND: Salinas Alba I [facility] AUTHOR: Sofia Cheng NPREPT SERVICE DT/TIME: 01/08/232118* ALL edits or amendments must be made on the electronic/computer document * SubjectiveChief complaint:HematuriaHPI:62-year-old male with last medical history of, BPH, s/p bladder lift yesterday by Dr. Jones transferred from [place] for urology evaluation secondary tohematuria after bladder irrigation failed. pt was seen and evaluated by Dr. 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 Last admitted to [facility] ED on 10/16/22 with urinary retention. Abnormal labs: [...] MLSodium Chloride (SODIUM CHLORIDE 0.9%) 1,000 ML .D76T83F IV Sodium Chloride (SODIUM CHLORIDE 0.9%) 1,000 [...] % (Auto) (14.0 - 32.0 %) 22.3 Frio % (Auto) (4.8 - 9.0 %) 6.9 Eos % (Auto) (0.3 - 3.7 %) 9.9 H Baso % (Auto) (0.0 - 2.0 %) 0.9 Neut # (Auto) (2.0 - 7.6 x10 3/uL) 3.89 Lymph # (Auto) (1.0 - 3.8 x10 3/uL) 1.46 Frio # (Auto) (0.1 - 0.8 x10 3/uL) [...] range of motion, normal sensory, normal motor functionNeuro/DELIVERER MERCHANDISE: alert, oriented X 3Skin: dry, intact, no gross abnormalitiesPsychiatry: no hallucinations, normal affect, normal judgment/insight, normal mood, not homicidal, not suicidal Free Text DxA P NotesFree text DxA P notes:Assessment:62-year-old male with last medical history of, BPH, s/p bladder lift yesterday by Dr. Jones transferred from [place] for urology evaluation secondary tohematuria after bladder irrigation failed. pt was seen and evaluated by Dr. 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 Last admitted to [facility] ED on 10/16/22 with urinary retention.Abnormal labs: WBC [...] electrolytesRepeat labsFurther recommendation based on patient's clinical codrdy7201/06/2023Vital signs within normal limitsBlood culture shows Enterococcus [...] present care at 2359 at 1240 RPT #:[id number] OF REPORTPRProgress puqb1964-86-00M11:19:00G.TJOR74980542-0182ZTDfaor able for patient kqcvEBMKCEPRUQTDAI7192-53-90Y63:59:46 [facility] 2023-01-08 18:59:00 [id number] 1Z+tg6LRZEp5A+QBu/q105ovvkHWY beAuCyDiskl1rvvT9JlL/Y4MXZ09453-57-21B08:59:00 [facility] ([facility])Infectious Dis. Progress NoteREPORT#:[id number] REPORT STATUS: SignedREPORT INITIALIZATION DATE:01/08/23 TIME: 1858 PATIENT: MATHEW CASTILLO UNIT #: [id number]#: [id number] [address] [birth year] AGE: 62 SEX: M ATTEND: [...] home on oral ciprofloxacin. at 0321 RPT #:[id number] OF REPORTPRProgress uykn8106-64-98C57:59:00G.NQMG55301245-5375PGTzimd able for patient imwlZJIWRFDOHKBOGJ9638-69-11T91:21:51 [facility] 2023-01-08 18:22:00 [id number] QMaRJ84apto4QBpJN80DwbpahmcWd /vxamEkX2lf6dinDvJExY30vpuu3654-19-30L22:22:03202 4-031 [place] [address] PATIENT NAME: MATHEW CASTILLO ADMIT DATE: 01/06/23ACCOUNT NO: [id number] ROOM NO: [facility] AGE: 62 REPORT TYPE: PROGRESS NOTE [...] 205,000. Serum sodium is 138, potassium 4.0, nubyxvur717, bicarbonate 26, glucose 91, BUN 14, creatinine 0.8, estimated GFR is 99.calcium is 7.8, blood culture 1 out of 2 has shown growth of Enterococcusfaecalis, which is pansensitive. Another blood culture so far is negative at 72hours of incubation. Urine culture has shown growth of Pseudomonas gklpzqvhuc43,000 to 50,000 colony forming units. Currently, the [...] Dictated: 01/08/2023 18:22:31Date Transcribed: 01/08/2023 19:55:35/Trina #: [id number] ID: [id number] Authenticated and Edited by Skip Jaffe MD On 01/22/23 5:18:46 AM at 0520 PATIENT NAME: MATHEW CASTILLO wqgg1158-92-10A58:55:00G.BTN04096239-7554IMXspttv ble for patient dzxpQQVSTGTXCVOUWY7499-42-62N15:21:54 [facility] 2023-01-08 17:58:00 [id number] v+Nqna1tnNK+bn/090WU8PV3S+hQy PzaVm8JdF6RKe0Tr+i8Q+TE3xNT8235-80-89I29:58:00 [facility] ([facility])Urology Progress NoteREPORT#:[id number] REPORT STATUS: SignedREPORT INITIALIZATION DATE:01/08/23 TIME: 1758 PATIENT: MATHEW CASTILLO UNIT #: [id number]#: [id number] [address] AGE: 62 SEX: M ATTEND: [...] % (Auto) (14.0 - 32.0 %) 22.3 Frio % (Auto) (4.8 - 9.0 %) 6.9 Eos % (Auto) (0.3 - 3.7 %) 9.9 H Baso % (Auto) (0.0 - 2.0 %) 0.9 Neut # (Auto) (2.0 - 7.6 x10 3/uL) 3.89 Lymph # (Auto) (1.0 - 3.8 x10 3/uL) 1.46 Frio # (Auto) (0.1 - 0.8 x10 3/uL) [...] improved - discharge with black tomorrow at 2491 RPT #:[id number] OF REPORTPRProgress kozf7772-72-11N27:58:00G.WQVV94509327-0124INAzjau able for patient ytykDXYVGYLDKTHHLN3356-86-32E80:00:52 [facility] 2023-01-08 02:42:00 [id number]/h/v QUWkDT9A7GapjcnriJ8+Dmu+ff7uq RQjpdtUiMBa+0PHKw0M/B7ufqdv2650-28-70N54:42:00 [facility] ([facility])Infectious Dis. Progress NoteREPORT#:[id number] REPORT STATUS: SignedREPORT INITIALIZATION DATE:01/08/23 TIME: 024 PATIENT: MATHEW CASTILLO UNIT #: [id number]#: [id number] [address] AGE: 62 SEX: M ATTEND: [...] patient on IV Zosyn. at 0353 RPT #:[id number] OF REPORTPRProgress zvpr7298-58-00Q92:42:00G.NFGO06158008-8638IYConau able for patient ovksGBWTGXMYLNTOIB0530-26-99K46:54:17 [facility] 2023-01-07 21:05:00 [id number] Q+BtDF3N0L3MbWAd0fjTPw8AgYFzK bZOmMJrsJ7ghXfWfSyC1ezu2+2D4727-38-88R18:05:00 [facility] ([facility])Internal Medicine Prog. NoteREPORT#:[id number] REPORT STATUS: SignedREPORT INITIALIZATION DATE:01/07/23 TIME: 2104 PATIENT: MATHEW CASTILLO UNIT #: [id number]#: [id number] [address] AGE: 62 SEX: M ATTEND: Salinas Alba AUTHOR: Sofia Cheng NPREPT SERVICE DT/TIME: 01/07/232104* ALL edits or amendments must be made on the electronic/computer document * SubjectiveChief complaint:HematuriaHPI:62-year-old male with last medical history of, BPH, s/p bladder lift yesterday by Dr. Jonse transferred from [place] for urology evaluation secondary tohematuria after bladder irrigation failed. pt was seen and evaluated by Dr. 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 Last admitted to [facility] ED on 10/16/22 with urinary retention. Abnormal labs: [...] MLSodium Chloride (SODIUM CHLORIDE 0.9%) 1,000 ML .M43E26N IV Sodium Chloride (SODIUM CHLORIDE 0.9%) 1,000 [...] % (Auto) (14.0 - 32.0 %) 21.2 Frio % (Auto) (4.8 - 9.0 %) 7.2 Eos % (Auto) (0.3 - 3.7 %) 10.4 H Baso % (Auto) (0.0 - 2.0 %) 0.8 Neut # (Auto) (2.0 - 7.6 x10 3/uL) 3.56 Lymph # (Auto) (1.0 - 3.8 x10 3/uL) 1.26 Frio # (Auto) (0.1 - 0.8 x10 3/uL) [...] range of motion, normal sensory, normal motor functionNeuro/DELIVERER MERCHANDISE: alert, oriented X 3Skin: dry, intact, no gross abnormalitiesPsychiatry: no hallucinations, normal affect, normal judgment/insight, normal mood, not homicidal, not suicidal Free Text DxA P NotesFree text DxA P notes:Assessment:62-year-old male with last medical history of, BPH, s/p bladder lift yesterday by Dr. Jones transferred from [place] for urology evaluation secondary tohematuria after bladder irrigation failed. pt was seen and evaluated by Dr. 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 Last admitted to [facility] ED on 10/16/22 with urinary retention.Abnormal labs: WBC [...] electrolytesRepeat labsFurther recommendation based on patient's clinical wahusg7101/06/2023Vital signs within normal limitsBlood culture shows Enterococcus [...] present care at 2222 at 0742 RPT #:[id number] OF REPORTPRProgress pvra2077-21-37E24:05:00G.HAIC06231984-9058VWVlefb able for patient vpwfDNBVVSMYIRUVPK3559-05-65L38:22:45 [facility] 2023-01-07 16:17:00 [id number]+EifK49p FrA83zXriE4dCvzIcI8Kd8/Rh0T6T xTSrJh++t15GUc0e8L2978wmzoD2995-74-43H69:17:00 [facility] Progress NoteREPORT#:[id number] REPORT STATUS: SignedREPORT INITIALIZATION DATE:01/07/23 TIME: 1616 PATIENT: MATHEW CASTILLO UNIT #: [id number]#: [id number] [address] AGE: 62 SEX: M ATTEND: Salinas Alba I [facility] AUTHOR: Dave Jones MDREPT SERVICE DT/TIME: 01/07/231616* [...] - discharge with black tomorrow at 1617 [facility] #:[id number] OF REPORTPRProgress frtk8879-33-25T88:17:00G.IWKO21269020-6673AWVandj able for patient uscaIJZZOKKGWLDRUG7286-50-13F11:18:01 [facility] 2023-01-07 05:20:00 [id number] RSyyo5AoO4ih0I7UZJKrnR1A4sJLK YwBkCSeQLTJxxKZxJY9QKOsFeRr1354-67-57T82:20:41287 3-0041 [place] [address] PATIENT NAME: MATHEW CASTILLO ADMIT DATE: 01/06/23ACCOUNT NO: [id number] ROOM NO: [facility] AGE: 62 REPORT TYPE: PROGRESS NOTE [...] 01/07/2023 05:20:31Date Transcribed: 01/07/2023 05:56:47 DORADO/Nicole #: [id number] ID: [id number] Authenticated and Edited by Skip Jaffe MD On 01/22/23 5:18:20 AM at 0520 PATIENT NAME: MATHEW CASTILLO iqzn4103-23-90X51:56:00G.DES13891218-5216NMZrohhz ble for patient wlalFZNRLEZCFJKBGE4143-08-12E81:21:33 [facility] 2023-01-06 21:39:00 [id number]/Dl9a5D xKVc5R3i33qHITLfgCl4vN2Y+HZ27 gh9m0N08tUW0MU1QGT4Xqjb6Bck0508-00-41W70:39:00 [facility] Prog. NoteREPORT#:[id number] REPORT STATUS: SignedREPORT INITIALIZATION DATE:01/06/23 TIME: 2138 PATIENT: MATHEW CASTILLO UNIT #: [id number]#: [id number] [facility] AGE: 62 SEX: M ATTEND: Salinas Alba AUTHOR: Sofia Cheng NPREPT SERVICE DT/TIME: 01/06/232138* ALL edits or amendments must be made on the electronic/computer document * SubjectiveChief complaint:HematuriaHPI:62-year-old male with last medical history of, BPH, s/p bladder lift yesterday by Dr. Jones transferred from [place] for urology evaluation secondary tohematuria after bladder irrigation failed. pt was seen and evaluated by Dr. 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 Last admitted to [facility] ED on 10/16/22 with urinary retention. Abnormal labs: [...] MLSodium Chloride (SODIUM CHLORIDE 0.9%) 1,000 ML .G57N75Y IV Sodium Chloride (SODIUM CHLORIDE 0.9%) 1,000 [...] (Auto) (14.0 - 32.0 %) 11.8 L Frio % (Auto) (4.8 - 9.0 %) 7.5 Eos % (Auto) (0.3 - 3.7 %) 3.2 Baso % (Auto) (0.0 - 2.0 %) 0.4 Neut # (Auto) (2.0 - 7.6 x10 3/uL) 7.43 Lymph # (Auto) (1.0 - 3.8 x10 3/uL) 1.14 Frio # (Auto) (0.1 - 0.8 x10 3/uL) [...] range of motion, normal sensory, normal motor functionNeuro/DELIVERER MERCHANDISE: alert, oriented X 3Skin: dry, intact, no gross abnormalitiesPsychiatry: no hallucinations, normal affect, normal judgment/insight, normal mood, not homicidal, not suicidal Free Text DxA P NotesFree text DxA P notes:Assessment:62-year-old male with last medical history of, BPH, s/p bladder lift yesterday by Dr. Jones transferred from [place] for urology evaluation secondary tohematuria after bladder irrigation failed. pt was seen and evaluated by Dr. 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 Last admitted to [facility] ED on 10/16/22 with urinary retention.Abnormal labs: WBC [...] electrolytesRepeat labsFurther recommendation based on patient's clinical ezopxg4701/06/2023Vital signs within normal limitsBlood culture shows Enterococcus speciesUrine culture grows gram-negative teodoro-identification and sensitivity pendingHematuria is improved.Wean CBI as tolerated per uroContinue IV antibiotics Zosyn per ID, ceftriaxone is discontinuedStarted on Cogentin, still on tamsulosin.Monitor for further bleedingPain medications as neededFollow-up cultures, labs, continue medications and supportive care at 0015 at 0740 RPT #:[id number] OF REPORTPRProgress mrxs6963-13-64O93:39:00G.QPRN98031799-8960MJGltsz able for patient kmwuKHZLVPJQVZUVJT1870-12-37S81:16:29 [facility] 2023-01-06 19:39:00 [id number] lXNjW5u7EfcsLF1533kt00MsK02Pt PQ/I+wMHufpJ3cB4BWfz+7A0Go45384-70-67W27:39:00 [facility] ([facility])Urology Progress NoteREPORT#:[id number] REPORT STATUS: SignedREPORT INITIALIZATION DATE:01/06/23 TIME: 1938 PATIENT: MATHEW CASTILLO UNIT #: [id number]#: [id number] [address] AGE: 62 SEX: M ATTEND: [...] (Auto) (14.0 - 32.0 %) 11.8 L Frio % (Auto) (4.8 - 9.0 %) 7.5 Eos % (Auto) (0.3 - 3.7 %) 3.2 Baso % (Auto) (0.0 - 2.0 %) 0.4 Neut # (Auto) (2.0 - 7.6 x10 3/uL) 7.43 Lymph # (Auto) (1.0 - 3.8 x10 3/uL) 1.14 Frio # (Auto) (0.1 - 0.8 x10 3/uL) [...] wean cbi as tolerated at 1941 RPT #:[id number] OF REPORTPRProgress gatm2508-46-55P78:39:00G.DLGO84536055-4258RSRzxds able for patient hhatZQKAZANOECHDXK7504-80-91N07:41:57 [facility] 2023-01-06 19:19:00 [id number] vrueJT0KN7zDKkZyhDfqhKbOtFYnD CMtZZr0Vl8ETjaTPuiiri+kWOYy7289-97-38U11:19:00 [facility] ([facility])Infectious Dis. Progress NoteREPORT#:[id number] REPORT STATUS: SignedREPORT INITIALIZATION DATE:01/06/23 TIME: 1918 PATIENT: MATHEW CASTILLO SINCERE UNIT #: [id number]#: [id number] [facility] AGE: 62 SEX: M ATTEND: Salinas [...] [place] [address] colony-forming units of the Gram-negative rods. Identification and susceptibility is pending. Keep the patient on IV Zosyn. at 0411 RPT #:[id number] OF REPORTPRProgress rzqd7087-92-94Z93:19:00G.SQSC69289808-5176ZZTmiqw able for patient ggtsDZHJSPMFTHCDDO7618-81-42M99:11:25 [facility] 2023-01-06 17:40:00 [id number] 89HiyatnPMMYEs8+js8ulxoYBDHv8 x+uDryLY3pkluiNXWDgMZewXObP0503-47-75Y32:40:94628 2-[address] [address] PATIENT NAME: MATHEW CASTILLO ADMIT DATE: 01/06/23ACCOUNT NO: [id number] ROOM NO: GC146 AGE: 62 REPORT TYPE: CONSULTATION REPORT SEX: M ADMITTING PHYSICIAN:Salinas Alba MD ATTENDING PHYSICIAN:Salinas Alba MD CONSULTATION DATE: 01/05/2023 INFECTIOUS DISEASE CONSULTATION The patient examined, chart reviewed, old records reviewed. Thank you, Dr. Michael, for asking me to evaluate Mr. Mathew Castillo. HISTORY OF PRESENT ILLNESS: Mr. Castillo is known to me from his recent hospitalization at [facility] in 10/2022. He is a 62-year-old male with a past medical history of schizophrenia, benign prostatic hypertrophy with recurrent urinary symptomatology, history of previous episode of urinary retention due to bladder neck obstruction requiring indwelling Black catheter placement and hospitalization in October of 2022. The patient lives in [place] and he had an outpatient prostate procedure done by Dr. Dave Jones with [facility] on Friday01/03/2023 and was discharged home on the same day. The patient went back to [place]. However, subsequently, he started to notice ladan hematuria on Friday and had no other constitutional symptoms including fever or chills. The patient because of worsening hematuria decided to go to the hospital. He went to hospital in [place] and he was told to follow up with the urologist and he was transferred to the [facility]. The patient at present is hemodynamically stable [...] is single. He lives with his daughterjailene [place]. The patient has been a longtime smoker and continues to smoke. No history of IV drug use, alcohol use, or substance abuse. 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 [place] admission, [place] [address]. The patient had 2 blood cultures done. Urine culture is incubating. ASSESSMENT: The patient with multiple comorbidities including history of benignprostatic hypertrophy with previous episode of urinary retention requiring indwelling Black catheter placement has undergone an [facility] procedure on 01/03/2023, and subsequently was discharged on the same day; however, yesterday he started to have hematuria and was seen at a hospital in [facility] and is transferred to [facility] for further Urology evaluation. 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, and he is empirically started on [...] Dictated: 01/06/2023 17:40:46Date Transcribed: 01/06/2023 21:28:36ESTRADA/Concepcion #: [id number] ID: [id number] by Skip Jaffe MD On 01/22/2023 05:17:37 AM at 0517 PATIENT NAME: MATHEW CASTILLO SINCERE :28:00G.WA [id number] for patient jvgzEAFPJCFBQOGZDZ9091-71-86P55:18:03 [facility] 2023-01-05 23:00:00 [id number] jwKqHEiiscFFf8E8UUhOyqaYKxEcD 2niWXV4uYJTMWTeER+A7K/HQsm06821-33-82K86:00:00 [facility] ([facility])Infect Disease Consult NoteREPORT#:[id number] REPORT STATUS: SignedREPORT INITIALIZATION DATE:01/05/23 TIME: 2300 PATIENT: MATHEW CASTILLO UNIT #: [id number]#: [id number] [facility] AGE: 62 SEX: M ATTEND: [place] Alba AUTHOR: Skip Jaffe MDREPT SERVICE DT/TIME: 01/05/23 2300* ALL edits or amendments must be made on the electronic/computer document * History of Present IllnessHPI:Thank you for the consultation. Patient's current and old record reviewed. Orders initiated. See full dictated consultation report for further details. Patient is known to our service from his recent hospitalization at [facility] in October of 2022. ASSESSMENT AND PLAN: [...] Allergies:No Known Allergies (10/16/22) at 0526 RPT #:[id number] OF REPORTHWPdjlxbxrwvro3359-40-39V21:00:00G.PDOC2 [id number] for patient yatkPHUMTIVGQYZJAG4537-42-15J49:27:03 [facility] 2023-01-05 13:05:00 [id number] iPTsGxGrgm9pSACz12VQ/XV1hE3SW 2Q5hCtgHz4N427ItsNPd0X6UPcC8266-81-22R94:05:00 [facility] ([facility])Urology Consult NoteREPORT#:[id number] REPORT STATUS: SignedREPORT INITIALIZATION DATE:01/05/23 TIME: 1305 PATIENT: MATHEW CASTILLO UNIT #: [id number]#: [id number] [facility] AGE: 62 SEX: M ATTEND: Salinas [...] (Auto) (14.0 - 32.0 %) 4.5 L Frio % (Auto) (4.8 - 9.0 %) 6.1 Eos % (Auto) (0.3 - 3.7 %) 0.3 Baso % (Auto) (0.0 - 2.0 %) 0.2 Neut # (Auto) (2.0 - 7.6 x10 3/uL) 15.99 H Lymph # (Auto) (1.0 - 3.8 x10 3/uL) 0.82 L Frio # (Auto) (0.1 - 0.8 x10 3/uL) [...] (Auto) (14.0 - 32.0 %) 5.4 L Frio % (Auto) (4.8 - 9.0 %) 5.3 Eos % (Auto) (0.3 - 3.7 %) 0.0 L Baso % (Auto) (0.0 - 2.0 %) 0.2 Neut # (Auto) (2.0 - 7.6 x10 3/uL) 14.77 H Lymph # (Auto) (1.0 - 3.8 x10 3/uL) 0.90 L Frio # (Auto) (0.1 - 0.8 x10 3/uL) [...] pH (5.0 - 7.0) 7.0 Ur Specific [place] (1.005 - 1.030) 1.005 Urine Protein (NEGATIVE) [...] Alberts MD[facility] at 1312 RPT #:[id number] OF REPORTKHOyhhkayvkaiv1397-57-12M24:05:00G.PDOC2 6195221-4826EXYpdkhyrob for patient jinvVWVPYFDMMFKBZQ1240-11-95I99:12:53 [facility] 2023-01-05 11:34:00 [id number]/t4gGg 66SpHEQrAglpg3rZxwdjEXgROqLG0 vmnk+3iwgfezvBvDvXtvhVVl5Fi8154-73-97W39:34:00 [facility] ([facility])History Physical - AdultREPORT#:[id number] REPORT STATUS: SignedREPORT INITIALIZATION DATE:01/05/23 TIME: 1133 PATIENT: MATHEW CASTILLO UNIT #: [id number]#: [id number] [address] [birth year] AGE: 62 SEX: M ATTEND: Salinas Alba AUTHOR: Sofia Cheng NPREPT SERVICE DT/TIME: 01/05/23 1134* ALL edits or amendments must be made on the electronic/computer document * History of Present Illness HPIChief complaint:HematuriaHPI:62-year-old male with last medical history of, BPH, s/p bladder lift yesterday by Dr. Jones transferred from [place] for urology evaluation secondary tohematuria after bladder irrigation failed. pt was seen and evaluated by Dr. 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 Last admitted to [facility] ED on 10/16/22 with urinary retention. Abnormal labs: [...] range of motion, normal sensory, normal motor functionNeuro/DELIVERER MERCHANDISE: alert, oriented X 3Skin: dry, intact, no [...] (Auto) (14.0 - 32.0 %) 4.5 L Frio % (Auto) (4.8 - 9.0 %) 6.1 Eos % (Auto) (0.3 - 3.7 %) 0.3 Baso % (Auto) (0.0 - 2.0 %) 0.2 Neut # (Auto) (2.0 - 7.6 x10 3/uL) 15.99 H Lymph # (Auto) (1.0 - 3.8 x10 3/uL) 0.82 L Frio # (Auto) (0.1 - 0.8 x10 3/uL) [...] x10 3/uL) 0.00 01/04 01/04 01/04 2205 214 2000 Chemistry Sodium (134 - 147 [...] (Auto) (14.0 - 32.0 %) 5.4 L Frio % (Auto) (4.8 - 9.0 %) 5.3 Eos % (Auto) (0.3 - 3.7 %) 0.0 L Baso % (Auto) (0.0 - 2.0 %) 0.2 Neut # (Auto) (2.0 - 7.6 x10 3/uL) 14.77 H Lymph # (Auto) (1.0 - 3.8 x10 3/uL) 0.90 L Frio # (Auto) (0.1 - 0.8 x10 3/uL) [...] pH (5.0 - 7.0) 7.0 Ur Specific [place] (1.005 - 1.030) 1.005 Urine Protein (NEGATIVE) [...] SCAN - CT ABD PELVIS W/CONT 01/04 71 Report Impression - Status: SIGNED Entered: 01/04/2023 0938 IMPRESSION: 1. Prostatomegaly. Decompressed bladder with a Black in place.2. No hydronephrosis. No enhancing renal masses.3. Cholelithiasis and mildly distended gallbladder.4. Moderate hiatal hernia.Impression By: Nick Magaña M.D. Diagnosis, Assessment Plan Free Text DxA P NotesFree Text DxA P Notes:Assessment:62-year-old male with last medical history of, BPH, s/p bladder lift yesterday by Dr. Jones transferred from [place] for urology evaluation secondary tohematuria after bladder irrigation failed. pt was seen and evaluated by Dr. 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 Last admitted to [facility] ED on 10/16/22 with urinary retention. Abnormal labs: [...] clinical course at 0055 at 0739 RPT #:[id number] OF REPORTHPHistory and physical mfdmentvwya7963-22-72X32:34:00G.RRQW65781736-7318 AVAvailable for patient fjdeMMWIXABBHIXWXD0726-23-38E17:55:31 [facility] 2023-01-05 01:59:00 [id number]/yQ9bPaQ G97MFtRLyK7mG6rb+Q+88y8NF55ip U9dOPtgopO8FKE6pILAkBUCoQgA0475-05-56U39:59:00 [facility] ([facility])Clinical NoteREPORT#:[id number] REPORT STATUS: SignedREPORT INITIALIZATION DATE:01/05/23 TIME: 0159 PATIENT: MATHEW CASTILLO UNIT #: [id number]#: [id number] [address]9YOQ: 59 AGE: 62 SEX: M ATTEND: Salinas Alba AUTHOR: Sofia Cheng NPREPT SERVICE DT/TIME: 01/05/23 0159* ALL edits or amendments must be made on the electronic/computer document * Clinical NoteNote:Clinical data reviewedOrders placed at 0222 RPT #:[id number] OF REPORTCLClinical zypg0323-49-63V43:59:00G.KFUR65562057-2101DVOykzq able for patient ieghHOKWFOOODCICXX8934-76-26X74:22:53 [facility] 2023-01-04 20:02:00 T71715172260g+5KrlUg 2n2slxLhZ4LtJvplvsiFcbHBAJvw3 tyJX8w9WH4a5H6cDvz1vbDqy7/b5071-21-62L86:02:00 [facility] ([facility])EMERGENCY PROVIDER REPORTREPORT#:[id number] REPORT STATUS: SignedDATE:01/04/23 TIME: 2001 PATIENT: MATHEW CASTILLO UNIT #: [id number]#: [id number] [address]D722-0OMH: 62 SEX: M PCP PHYS: Lakhwinder Guillermo [...] SOB. Per daughter atbedside patient evaluated at [place] ED INSPECTOR RAG SORTING, bladder irrigation attempted without resolution of hematuria. 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 Tachycardic [...] DecisionHospitalize Hosp Physician Name Salinas Alba MD [facility] Physician Hospitalist Request Time 34 Request [...] MidLv Saw Pt AloneI have reviewed the PA/TEACHER OF THE HEARING IMPAIRED's note and plan of care. I was available for consultation as needed at all times during the patient's visit in the emergency department. I agree with the clinical impression, plan and disposition. at 2148 at 0552RPT #:[id number] OF REPORTHCA [facility] department cothuj1578-28-67S59:02:00G.XZMY79563627-4070OMGca ilable for patient awrwRGGGQGLFWUBIHO8947-03-43M75:48:19 [facility] 2022-11-19 18:14:00 [id number]/HZ a9/R1oM6IhJX3PhXNrhBDqu3lH5Kq DGj+Okv1Y3G7amYfKbr0TzgyZRS9238-28-47P06:14:00 [facility] ([facility])Discharge SummaryREPORT#:[id number] REPORT STATUS: SignedDATE:11/19/22 TIME: 1813 PATIENT: MATHEW CASTILLO UNIT #: [id number]#: [id number] [address] [birth year] AGE: 62 SEX: M ATTEND: [...] last medical history of, BPH, transferred from [place] for urology evaluation and treatment secondary to [...] range of motion, normal sensory, normal motor functionNeuro/DELIVERER MERCHANDISE: alert, oriented X 3Skin: dry, intact, no [...] Care Discharge InstructionsAdditional Discharge Routines: PCP Follow-Up, Line Prep Cook Follow-Up)( Diet: Regular Follow-up AppointmentsPCP follow up: PCP: Yumiko Geller MD PCP follow up timeframe: In 5 days Special instructions:CAN FU WITH OWN PCPAttending Physician: Attending Physician: Salinas Alba MD Attending physician follow up timeframe: In 1-2 weeks Special instructions:CALL TO SCHEDULE AN APPOINTMENTConsulting provider 1: Provider 1: Dave Jones MD Specialty: Urology Special instructions:FOR REMOVAL OF BLACK at [address] [facility] #:[id number] OF REPORTDSDischarge jrapiwz2265-33-54Q18:14:00G.QLPR83961765-9882KGZz ailable for patient kxpxJLBKWXZRHJEYIJ5624-87-36P08:32:51 [facility] 2022-10-26 20:52:00 [id number] aoXbrOo+EnndJQNmPtDOQuMp+1/fm 36L6J2HrpzjVC5Nth8OZtOHmIBG2297-81-66H87:52:63194 2-[address] [place], [place] [address] PATIENT NAME: MATHEW CASTILLO ADMIT DATE: 10/16/22ACCOUNT NO: [id number] ROOM NO: [facility] AGE: 62 REPORT TYPE: PROGRESS NOTE SEX: [...] Emergency Room where he was transferred from [place] with acuteurinary retention. He had 3 liters [...] Dictated: 10/26/2022 20:52:41Date Transcribed: 10/26/2022 21:14:58HA/JORGE/Marine #: [id number] ID: [id number] Authenticated and Edited by Skip Jaffe MD On 11/02/22 2:24:00 AM at 0323 PATIENT NAME: MATHEW CASTILLO pvgx8412-28-93D48:14:00G.WHT15086636-2669FOQrhwpv ble for patient vddxJVIBVBOBOSOSFR8979-30-99K32:24:01 [facility] 2022-10-26 19:14:00 [id number] muMjyYamXKWURvmKqQzI9Xk1EHenE 5V6BwgAfIBNOThyBO5fBhFH4xE54228-93-33Q36:14:00 [facility])Internal Medicine Prog. NoteREPORT#:[id number] REPORT STATUS: SignedDATE:10/26/22 TIME: 1913 PATIENT: MATHEW CASTILLO UNIT #: [id number]#: [id number] [address] [birth year] AGE: 62 SEX: M ATTEND: Salinas Alba I [facility] AUTHOR: Sofia Cheng TEACHER OF THE HEARING IMPAIRED * ALL edits or amendments must be made on the electronic/computer document * SubjectiveChief complaint:Abdominal distention, hydronephrosisHPI:62-year-old male with last medical history of, BPH, transferred from [place] for urology evaluation and treatment secondary to [...] range of motion, normal sensory, normal motor functionNeuro/DELIVERER MERCHANDISE: alert, oriented X 3Skin: dry, intact, no gross abnormalitiesPsychiatry: no hallucinations, normal moodProblem List/A P: 1. Rupture of ureter Free Text DxA P NotesFree text DxA P notes:Assessment:62-year-old male with last medical history of, BPH, transferred from [place] for urology evaluation and treatment secondary to [...] neededRepeat labsFurther recommendation based on patient's clinical sfjuai3810/17/2022Vital signs within normal limitsHypokalemia 3.2, hypomagnesemia 1.50Renal [...] controlFollow-up electrolytes and labs, continue medications and lnehzxu7910/22/2022Vital signs within normal limits, POC glucose is [...] explained to patient's daughterContinue with current medicationsFall rghvqpbnci53/20/2023Stable, POC glucose 154Patient with Black to gravity, [...] supportive care at 2225 at 0830 RPT #:[id number] OF REPORTPRProgress odkd7721-30-70B43:14:00G.TLMT60842539-0588LSQxwzx able for patient kjnbQDVRUQQVTHUNQK4890-10-22F25:25:27 [facility] 2022-10-26 13:41:00 [id number] fMrwzeuoP7bf3WtPqV1uji0mM7hyz EQg60PNMybURKyr7hXZ1xti1R3u6269-20-18C55:41:00 [facility])Nephrology Progress NoteREPORT#:[id number] REPORT STATUS: SignedDATE:10/26/22 TIME: 134 PATIENT: MATHEW CASTILLO UNIT #: [id number]#: [id number] [address] [birth year] AGE: 62 SEX: M ATTEND: [...] urine in his bladder. CT abdomen from [place] showed that the patient has a very [...] urine in his bladder. CT abdomen from [place] showed that the patient has a very [...] above A/P at 1342 at 1813 RPT #:[id number] OF REPORTPRProgress llyz9788-54-61O21:41:00G.XWOR38521753-9203KBGxnbr able for patient nnovEVHNKKKOEICMBI6710-88-81B37:42:46 [facility] 2022-10-25 21:28:00 [id number] 5+jONiEpuuE1J8DWXVBemNI55u+y5 I3FWXBTMayDTTsaPh21cy3nm2nV1968-99-07Y32:28:00 [facility] ([facility])Infectious Dis. Progress NoteREPORT#:[id number] REPORT STATUS: SignedDATE:10/25/22 TIME: 2127 PATIENT: MATHEW CASTILLO UNIT #: [id number]#: [id number] ROOM/BED: 6630-1DOB: [birth year] AGE: 62 SEX: M ATTEND: Salinas Alba I [facility] AUTHOR: Skip Jaffe MD * ALL edits [...] new nosocomial acquired infection. at 0256 RPT #:[id number] OF REPORTPRProgress isvb2020-81-55R08:28:00G.JPGY75263286-2660XNDahfd able for patient djvvRTELMRYKCTOUKD5855-93-99U04:57:01 [facility] 2022-10-25 19:13:00 [id number] 4i57tpfSvysGHDlDQX69dl/nZAFaW zRjOXuq/hgflWTa63yJY0MViww88464-50-71U20:13:00 [facility] ([facility]Neph[facility] Progress NoteREPORT#:[id number] REPORT STATUS: SignedDATE:10/25/22 TIME: 1912 PATIENT: MATHEW CASTILLO UNIT #: [id number]#: [id number] [address] [birth year] AGE: 62 SEX: M ATTEND: Salinas Alba I [facility] AUTHOR: Toby Koehler MD * ALL edits [...] (Auto) (14.0 - 32.0 %) 10.6 L Frio % (Auto) (4.8 - 9.0 %) 4.4 L Eos % (Auto) (0.3 - 3.7 %) 2.4 Baso % (Auto) (0.0 - 2.0 %) 0.5 Neut # (Auto) (2.0 - 7.6 x10 3/uL) 12.30 H Lymph # (Auto) (1.0 - 3.8 x10 3/uL) 1.60 Frio # (Auto) (0.1 - 0.8 x10 3/uL) [...] urine in his bladder. CT abdomen from [place] showed that the patient has a very [...] urine in his bladder. CT abdomen from [place] showed that the patient has a very [...] abx per primary team. at 1914 RPT #:[id number] OF REPORTPRProgress uysc3127-34-91W22:13:00G.IIFV74244621-8918NVCmfgl able for patient uwfxYJSNWUIMAFOYUO0024-08-62B20:14:52 [facility] 2022-10-25 19:12:00 [id number] dLG1Dkz/yAWjC74OLqtmqhkyEi0QF bhbjC0lK5xr9Ho2oeu5QKqtBkhV7475-23-95X82:12:00 [facility] ([facility])Internal Medicine Prog. NoteREPORT#:[id number] REPORT STATUS: SignedDATE:10/25/22 TIME: 1911 PATIENT: MATHEW CASTILLO UNIT #: [id number]#: [id number] ROOM/BED: [facility]DOB: [birth year] AGE: 62 SEX: M ATTEND: Salinas Alba I [facility] AUTHOR: Sofia Cheng NP * ALL edits or amendments must be made on the electronic/computer document * SubjectiveChief complaint:Abdominal distention, hydronephrosisHPI:62-year-old male with last medical history of, BPH, transferred from [place] for urology evaluation and treatment secondary to [...] 10/25 10/25 10/25 10/24 1634 1046 0739 4310 1951 Chemistry Sodium (134 - 147 mEq/L) [...] (Auto) (14.0 - 32.0 %) 10.6 L Frio % (Auto) (4.8 - 9.0 %) 4.4 L Eos % (Auto) (0.3 - 3.7 %) 2.4 Baso % (Auto) (0.0 - 2.0 %) 0.5 Neut # (Auto) (2.0 - 7.6 x10 3/uL) 12.30 H Lymph # (Auto) (1.0 - 3.8 x10 3/uL) 1.60 Frio # (Auto) (0.1 - 0.8 x10 3/uL) [...] range of motion, normal sensory, normal motor functionNeuro/DELIVERER MERCHANDISE: alert, oriented X 3Skin: dry, intact, no gross abnormalitiesPsychiatry: no hallucinations, normal moodProblem List/A P: 1. Rupture of ureter Free Text DxA P NotesFree text DxA P notes:Assessment:62-year-old male with last medical history of, BPH, transferred from [place] for urology evaluation and treatment secondary to [...] neededRepeat labsFurther recommendation based on patient's clinical gtngxs5310/17/2022Vital signs within normal limitsHypokalemia 3.2, hypomagnesemia 1.50Renal [...] controlFollow-up electrolytes and labs, continue medications and qbtlfpy7110/22/2022Vital signs within normal limits, POC glucose is [...] explained to patient's daughterContinue with current medicationsFall qsogxmiwby41/20/2023Stable, POC glucose 154Patient with Black to gravity, [...] supportive care at 2224 at 0830 RPT #:[id number] OF REPORTPRProgress muxw0487-15-03Y82:12:00G.JLLH13807045-8579SWUiidf able for patient aspyROXMNBTAKSGDKW0975-43-56K45:24:26 [facility] 2022-10-25 10:44:00 [id number] ePHvcj9S4vjsSlAB8+rAFWc3p4uKf OQd3o+ZB/UMKPK01Pn81Fz1QaQy4119-36-05D52:44:98304 1-[address] [place] [address] PATIENT NAME: MATHEW CASTILLO ADMIT DATE: 10/16/22ACCOUNT NO: [id number] ROOM NO: 6630 AGE: 62 REPORT TYPE: [...] admitted through Emergency Roominitially to hospital in [place] with urinary retention of 2 days' durationand was found to have some extravasation of urine in the peritoneal cavity. Thepatient was treated with IV antibiotics and had a Black catheter inserted andabout 3 liters of urine was drained and the Black was left in place and [facility]The patient was evaluated by [...] Dictated: 10/25/2022 10:44:58Date Transcribed: 10/25/2022 11:24:45HA/Yulisa #: [id number] ID: [id number] Authenticated and Edited by Skip Jaffe MD On 11/02/22 2:23:50 AM at 0323 PATIENT NAME: MATHEW CASTILLO wwjd9300-09-78C14:24:00G.GFN09025310-8021URRuunka ble for patient hlihCPVCKJNXONMDCS5370-36-11V89:24:12 [facility] 2022-10-24 22:59:00 B80627841593WG1t1ESi xz2gxzF4WZXF2cwwgA+I1gOHb9hSn 6Oed0OM8P9lJ1alg492t8Jz+POj8017-64-79X32:59:00 [facility])Internal Medicine Prog. NoteREPORT#:[id number] REPORT STATUS: SignedDATE:10/24/22 TIME: 2258 PATIENT: MATHEW CASTILLO UNIT #: [id number]#: [id number] [address] [birth year] AGE: 62 SEX: M ATTEND: Salinas Alba I [facility] AUTHOR: Sofia Cheng NP * ALL edits or amendments must be made on the electronic/computer document * SubjectiveChief complaint:Abdominal distention, hydronephrosisHPI:62-year-old male with last medical history of, BPH, transferred from [place] for urology evaluation and treatment secondary to [...] mucosal process. Impression By: KemJT18 - Hayden gR M.D. Vital Signs Date Temp Pulse Resp [...] range of motion, normal sensory, normal motor functionNeuro/DELIVERER MERCHANDISE: alert, oriented X 3Skin: dry, intact, no gross abnormalitiesPsychiatry: no hallucinations, normal moodProblem List/A P: 1. Rupture of ureter Free Text DxA P NotesFree text DxA P notes:Assessment:62-year-old male with last medical history of, BPH, transferred from [place] for urology evaluation and treatment secondary to [...] neededRepeat labsFurther recommendation based on patient's clinical fzaxwn0510/17/2022Vital signs within normal limitsHypokalemia 3.2, hypomagnesemia 1.50Renal [...] controlFollow-up electrolytes and labs, continue medications and pbolfnu9110/22/2022Vital signs within normal limits, POC glucose is [...] explained to patient's daughterContinue with current medicationsFall pecjswhwdh47/20/2023Stable, POC glucose 154Patient with Black to gravity, tolerating p.o. intakeNephro is following. On tamsulosin p.o.Continue pain control, glycemic control, fall precautionContinue medications and present care at 2223 at 0830 RPT #:[id number] OF REPORTPRProgress imse7588-36-84C44:59:00G.GVYQ16864173-0274SCOcmql able for patient peobANJTZAFEIPISTD7365-26-91A65:24:17 [facility] 2022-10-24 19:41:00 O04390458795bRRsrX0V chMT6MRe/7apuZY/MjMbjzEu40cQh Yy4FIKJAPx5UafAVnhGdX7hF55I1645-22-42M73:41:00 [facility] ([facility])Infectious Dis. Progress NoteREPORT#:[id number] REPORT STATUS: SignedDATE:10/24/22 TIME: 1940 PATIENT: MATHEW CASTILLO UNIT #: [id number]#: [id number] ROOM/BED: 6630-1DOB: [birth year] AGE: 62 SEX: M ATTEND: [facility]inas Alba [facility] AUTHOR: Skip Jaffe MD * [...] closely for any diarrhea. at 0316 RPT #:[id number] OF REPORTPRProgress lyiv6045-54-54S61:41:00G.FXNZ80229216-6636OPFgwkw able for patient hgxcVWPWCSBCHEJQMP6162-14-73K95:16:37 [facility] 2022-10-24 19:12:00 C40210841248XR0G5aFO 7o2ZXC076ZqVeCgv7+nSXnzIFjnKL RJfws6qraAxIMg2OHIwFb9pDdDr1142-62-43Q09:12:17034 0-[address] [place], [place] [address] PATIENT NAME: MATHEW CASTILLO ADMIT DATE: 10/16/22ACCOUNT NO: [id number] ROOM NO: [facility] AGE: 62 REPORT TYPE: PROGRESS NOTE SEX: [...] sodium is 138, potassium 3.8, chloride 107, usbxqylchvx57, glucose 98. BUN 11, creatinine 1.0, estimated [...] medical problems was initiallyadmitted to hospital in [place] where he had presented with urinaryretention. The patient was found to have 3 liters of urine in the bladder. Hehad a Black catheter inserted and subsequently was transferred to [facility] for urology evaluation. He [...] Dictated: 10/24/2022 19:12:07Date Transcribed: 10/24/2022 19:51:44HA/Concepcion #: [id number] ID: [id number] Authenticated and Edited by Skip Jaffe MD On 11/02/22 2:23:34 AM at 0323 PATIENT NAME: MATHEW CASTILLO brgk5121-84-23X85:51:00G.NRK89407877-3493JHWlmqgq ble for patient gahzIFDXDZTGRGVJDN2820-94-31U86:24:12 [facility] 2022-10-24 16:08:00 [id number] oYFH4JWZB4KecN/sMaFTNPE/[place]/s f3STW/dvuIn7wzZfVSCAFbIV0L32387-67-35A44:08:00 [facility] ([facility])Nephrology Progress NoteREPORT#:[id number] REPORT STATUS: SignedDATE:10/24/22 TIME: 160 PATIENT: MATHEW CASTILLO UNIT #: [id number]#: [id number] [address] [birth year] AGE: 62 SEX: M ATTEND: Salinas Alba I [facility] AUTHOR: Carmen Kemp * ALL edits or [...] urine in his bladder. CT abdomen from [place] showed that the patient has a very [...] urine in his bladder. CT abdomen from [place] showed that the patient has a very [...] above A/P at 1740 at 2124 RPT #:[id number] OF REPORTPRProgress mbpd4989-83-25X25:08:00G.XOEE65567403-0795CGJmwuz able for patient xuarEBCMDRZLPAQULF9609-96-02L58:40:54 [facility] 2022-10-23 21:33:00 [id number] ccC9Tx0Kl8uhNUPpEOYoPWLTwrNDg 0CEUhdee4HUkiXhfSf9buWkZCXz6887-82-99Z29:33:00 [facility] Prog. NoteREPORT#:[id number] REPORT STATUS: SignedDATE:10/23/22 TIME: 2132 PATIENT: MATHEW CASTILLO UNIT #: [id number]#: [id number] [address] [birth year] AGE: 62 SEX: M ATTEND: Salinas Alba I [facility] AUTHOR: Sofia Cheng NP * ALL edits or amendments must be made on the electronic/computer document * SubjectiveChief complaint:Abdominal distention, hydronephrosisHPI:62-year-old male with last medical history of, BPH, transferred from [place] for urology evaluation and treatment secondary to [...] range of motion, normal sensory, normal motor functionNeuro/DELIVERER MERCHANDISE: alert, oriented X 3Skin: dry, intact, no gross abnormalitiesPsychiatry: no hallucinations, normal moodProblem List/A P: 1. Rupture of ureter Free Text DxA P NotesFree text DxA P notes:Assessment:62-year-old male with last medical history of, BPH, transferred from [place] for urology evaluation and treatment secondary to [...] neededRepeat labsFurther recommendation based on patient's clinical zmrzri5610/17/2022Vital signs within normal limitsHypokalemia 3.2, hypomagnesemia 1.50Renal [...] controlFollow-up electrolytes and labs, continue medications and wcfzwha4310/22/2022Vital signs within normal limits, POC glucose is [...] medicationsFall precaution at 0250 at 0842 RPT #:[id number] OF REPORTPRProgress unyy2377-64-85R91:33:00G.[id number] able for patient mogzXUQPJPETDGISNT8772-15-39G22:51:16 [facility] 2022-10-23 18:51:00 [id number] eBhwJ5C31nAMV8aJlOGZFte8x/gJ1 MaBiwwkjUxhZJ5iY4wqksJwjSQR1153-25-55T96:51:00 [facility] ([facility])Infectious Dis. Progress NoteREPORT#:[id number] REPORT STATUS: SignedDATE:10/23/22 TIME: 1850 PATIENT: MATHEW CASTILLO UNIT #: [id number]#: [id number] RO[address]DOB: [birth year] AGE: 62 SEX: M ATTEND: [...] closely for any diarrhea. at 0256 RPT #:[id number] OF REPORTPRProgress hhfk4834-78-87F49:51:00G.LTFG31878659-4605NGMhvab able for patient gqkkEXPYABFMDGTCRU6782-97-85F57:56:58 [facility] 2022-10-23 18:27:00 [id number] ywlG7PJAhUsBiqZ0VDKkW1l0iUkBc +QBEVMtGAw2lsMqIEP62+hf8N+h2923-34-61V60:27:12175 9[address] [place] [address] PATIENT NAME: MATHEW CASTILLO ADMIT DATE: 10/16/22ACCOUNT NO: [id number] ROOM NO: G.6630 AGE: 62 REPORT TYPE: [...] sodium is 139, potassium 4.0, chloride 107, matbpwqzqzd94, glucose 102, BUN 12, creatinine 1.1, estimated GFR is 75.4, calcium is 7.8,magnesium is 1.72. Blood cultures x2 are negative so far at 48 hours ofincubation. PATIENT NAME: MATHEW CASTILLO ASSESSMENT AND PLAN: The patient with multiple medical problems was initiallyadmitted through the Emergency Room where he was transferred from [facility] because of urinary retention. The patient presented to [facility] with 2 days' history of not able to pass any urine and he was found tohave 3 liters urine in his bladder with some extravasation of urine into theperitoneal cavity. The patient had a Black catheter placed and bladder wasrelieved. He was transferred to [facility] forevaluation by Urology Service. The patient was kept on IV ceftriaxone.Initially, he showed improvement in his condition; however, he had a temperatureof up to 37.8 degrees Celsius supervisor inspection department on 10/20/2022, and at that time, hehad [...] 10/23/2022 18:27:31Date Transcribed: 10/23/2022 18:54:06 ESTRADA/Concepcion #: [id number] ID: [id number] Authenticated and Edited by Skip Jaffe MD On 11/02/22 2:23:13 AM at 0225 PATIENT NAME: MATHEW CASTILLO vhzq0312-91-12N85:54:00G.PZO10895742-2222FISmxlad ble for patient avypBLVODHKMOTPRLI1557-89-61P86:25:49 [facility] 2022-10-23 13:24:00 [id number] tLycKgrYEp1lmMkeNdkzBeshDc5L/ 9+NcXtDkazigKElrvPR35v7fqlC9132-26-01M81:24:00 [facility] ([facility])Nephrology Progress NoteREPORT#:[id number] REPORT STATUS: SignedDATE:10/23/22 TIME: 1323 PATIENT: MATHEW CASTILLO UNIT #: [id number]#: [id number] [address] [birth year] AGE: 62 SEX: M ATTEND: [...] 10/23 10/23 10/23 10/23 10/22 1622 1133 0848 0632 2006 Chemistry Sodium (134 - 147 mEq/L) [...] urine in his bladder. CT abdomen from [place] showed that the patient has a very [...] urine in his bladder. CT abdomen from [place] showed that the patient has a very [...] agree with above A/P at 1741 at 2063 RPT #:[id number] OF REPORTPRProgress spmo6561-46-18G17:24:00G.YQVN00466361-0140LHVvbcv able for patient amrkAZQZNWBDEWTBUE5067-61-35X34:42:17 [facility] 2022-10-22 18:32:00 [id number] iFHyuv1mD9dxENtyw7FdohftnmHvp iEpeW0YGVX+aDyp/FHdOzOVy3vD7443-18-39R30:32:00 [facility] ([facility])Infectious Dis. Progress NoteREPORT#:[id number] REPORT STATUS: SignedDATE:10/22/22 TIME: 1831 PATIENT: MATHEW CASTILLO UNIT #: [id number]#: [id number] [address] [birth year] AGE: 62 SEX: M ATTEND: [...] Had low-grade temperature of the 37.6 degreeC supervisor inspection department today. Remains afebrile at the present time. [...] IV antibiotics for now. at 0219 RPT #:[id number] OF REPORTPRProgress jdmw9811-15-10H57:32:00G.MBTI67823609-4953OLTbojv able for patient ddykQNIWCWIJXUJWMD4149-28-27W25:19:49 [facility] 2022-10-22 18:20:00 [id number] F3geA80cxq7cyNZ8uBU4p125TzpjE wOpbgbQlvqBA4W8SMq9QNFRDpt16394-03-50W17:20:415[address] 8[address] [place] [address] PATIENT NAME: MATHEW CASTILLO ADMIT DATE: 10/16/22ACCOUNT NO: [id number] ROOM NO: G.6630 AGE: 62 REPORT TYPE: [...] comorbidities, was initiallyad[facility] through [facility] with acute urinaryretention. The patient has [...] need for urology evaluation, [facility] The patient was continued on IVceftriaxone and had been doing fairly well until supervisor inspection department yesterday when hestarted to have fever of [...] Dictated: 10/22/2022 18:20:30Date Transcribed: 10/22/2022 19:52:40/Trina #: [id number] ID: [id number] Authenticated and Edited by Skip Jaffe MD On 11/02/22 2:22:51 AM at 0323 PATIENT NAME: MATHEW CASTILLO fhdd0230-98-85P35:52:00G.MAS98559060-9420WGDuvurj ble for patient hkscHJOASMZGCMZBOP5114-44-46J90:24:12 [facility] 2022-10-22 18:15:00 [id number]/hYJ6AQ P4ESderIjlxC02jl++cL3LpWUPihO cdKSNJpxleXAashQT2din8Jg53G0904-36-21Q69:15:00 [facility] Prog. NoteREPORT#:[id number] REPORT STATUS: SignedDATE:10/22/22 TIME: 1814 PATIENT: MATHEW CASTILLO UNIT #: [id number]#: [id number] [address] [birth year] AGE: 62 SEX: M ATTEND: Salinas Alba I [facility] AUTHOR: Sofia Cheng NP * ALL edits or amendments must be made on the electronic/computer document * SubjectiveChief complaint:Abdominal distention, hydronephrosisHPI:62-year-old male with last medical history of, BPH, transferred from [place] for urology evaluation and treatment secondary to [...] 10/22 10/22 10/22 10/22 10/21 1700 1119 0777 0632 2003 Chemistry Sodium (134 - 147 mEq/L) [...] range of motion, normal sensory, normal motor functionNeuro/DELIVERER MERCHANDISE: alert, oriented X 3Skin: dry, intact, no gross abnormalitiesPsychiatry: no hallucinations, normal moodProblem List/A P: 1. Rupture of ureter Free Text DxA P NotesFree text DxA P notes:Assessment:62-year-old male with last medical history of, BPH, transferred from [place] for urology evaluation and treatment secondary to [...] neededRepeat labsFurther recommendation based on patient's clinical ttxsdk7810/17/2022Vital signs within normal limitsHypokalemia 3.2, hypomagnesemia 1.50Renal [...] controlFollow-up electrolytes and labs, continue medications and nsgfisa8510/22/2022Vital signs within normal limits, POC glucose is controlledHypocalcemia 7.8, hypomagnesemia 1.72No sonographic evidence for DVTBlood culture shows no growth after 48 hoursPatient with good urine output, renal function is improved, patient will follow-up as an outpatientStill on IV antibiotic Zosyn, tamsulosin p.o.Continue electrolyte control-replace magnesiumContinue pain control, glycemic controlFollow-up labs, continue medications and supportive care at 0314 at 0842 RPT #:[id number] OF REPORTPRProgress quzo4989-51-84R44:15:00G.IJET35398866-7072NAPhawm able for patient jdagDJSEGXFGACGWLN8962-40-30Y40:14:38 [facility] 2022-10-22 09:31:00 [id number] j/bPSu8cXF0smszZnumRseRBXdbtJ of83Ss3Lw7MYiChkBgoLGi4lx2a8719-83-60U16:31:00 [facility] ([facility] Progress NoteREPORT#:[id number] REPORT STATUS: SignedDATE:10/22/22 TIME: 930 PATIENT: MATHEW CASTILLO UNIT #: [id number]#: [id number] ROOM/BED: 6630-1DOB: [birth year] AGE: 62 SEX: M ATTEND: Salinas Alba I [facility] AUTHOR: Carmen Kemp * ALL edits or [...] 10/22 10/22 10/22 10/21 1700 1119 0737 0672 2004 Chemistry Sodium (134 - 147 mEq/L) [...] urine in his bladder. CT abdomen from [place] showed that the patient has a very [...] urine in his bladder. CT abdomen from [place] showed that the patient has a very [...] patient's nurse, and . Toby Koehler 10/22/22 3347:Attestations Physician AttestationReviewed findings plan:Patient examined Renal function improved and wnl, black to gravity, -2/2 post-obstrucitve uropathy, replace electrolytes as needed, agree with aboveA/P at 1842 at 2220 RPT #:[id number] OF REPORTPRProgress etss7635-10-61T57:31:00G.BNUQ61751921-1438SXUvxip able for patient zetxMLWAOAIEUXZSGM3490-99-65N88:42:25 [facility] 2022-10-21 20:48:00 P05269895518hA85+6U6 StWFh4gx/0EzHEAkrJxm/DYHjvyDQ 72aE8/bhw5Qrdx+0CC8hDE+IW8+9004-99-27W25:48:00 [facility])Internal Medicine Prog. NoteREPORT#:[id number] REPORT STATUS: SignedDATE:10/21/22 TIME: 2047 PATIENT: MATHEW CASTILLO UNIT #: [id number]#: [id number] [address] [birth year] AGE: 62 SEX: M ATTEND: Salinas Alba I [facility] AUTHOR: Sofia Cheng NP * ALL edits or amendments must be made on the electronic/computer document * SubjectiveChief complaint:Abdominal distention, hydronephrosisHPI:62-year-old male with last medical history of, BPH, transferred from [place] for urology evaluation and treatment secondary to [...] NORMAL Radiology data:Recent Impressions:ULTRASOUND - DUP VEIN SAAEL 10/21 0821 Report Impression - Status: SIGNED [...] range of motion, normal sensory, normal motor functionNeuro/DELIVERER MERCHANDISE: alert, oriented X 3Skin: dry, intact, no gross abnormalitiesPsychiatry: no hallucinations, normal moodProblem List/A P: 1. Rupture of ureter Free Text DxA P NotesFree text DxA P notes:Assessment:62-year-old male with last medical history of, BPH, transferred from [place] for urology evaluation and treatment secondary to [...] neededRepeat labsFurther recommendation based on patient's clinical cgigcd2710/17/2022Vital signs within normal limitsHypokalemia 3.2, hypomagnesemia 1.50Renal [...] and present at 0104 at 1009 RPT #:[id number] OF REPORTPRProgress znsh4520-18-75C18:48:00G.MHDN08211835-4200ROHdkkt able for patient wiieTTTFXJUNDYGJYA7140-85-94S55:04:19 [facility] 2022-10-21 19:01:00 [id number] 4/cv5eo9iWchJstUOQbE+faeB2ILR 8lceX7C2+fn8cdSKmRaSG2De4WK5988-16-37U43:01:00 [facility] ([facility])Infectious Dis. Progress NoteREPORT#:[id number] REPORT STATUS: SignedDATE:10/21/22 TIME: 1900 PATIENT: MATHEW CASTILLO UNIT #: [id number]#: [id number] [address] [birth year] AGE: 62 SEX: M ATTEND: Salinas Alba I [facility] AUTHOR: Skip Jaffe MD * ALL edits [...] Discussed with Skylar MENDIOLA. at 0242 RPT #:[id number] OF REPORTPRProgress xhvy8137-53-12I58:01:00G.JAZE29094139-9538OSKsgvb able for patient plnaFFTWDGLCIFKOWQ2698-89-94S31:42:47 [facility] 2022-10-21 11:23:00 [id number] B+uRLhV6p0RqqFymFwYq8den1MyKg JOR4a4W5/GFC5w/tAAKGLTlGDem5440-39-08D53:23:00 [facility] ([facility]Neph[facility] Progress NoteREPORT#:[id number] REPORT STATUS: SignedDATE:10/21/22 TIME: 1122 PATIENT: MATHEW CASTILLO UNIT #: [id number]#: [id number] [address] [birth year] AGE: 62 SEX: M ATTEND: Salinas Alba I [facility] AUTHOR: Carmen Kemp * ALL edits or [...] urine in his bladder. CT abdomen from [place] showed that the patient has a very [...] urine in his bladder. CT abdomen from [place] showed that the patient has a very [...] above A/P at 1640 at 2055 RPT #:[id number] OF REPORTPRProgress zcrr4284-09-87F77:23:00G.JWXU11070151-3963GQQssmt able for patient qcwgEBPKZRJGNDEDMD2703-92-83C31:40:19 [facility] 2022-10-21 03:59:00 [id number]+N CvSsH2xyXMVBQ3DUSBmidJBOLChjR ewoQdVodsrn969CbW7AUEKcb2Z92430-98-02Z36:59:[address] [place], [place] [address] PATIENT NAME: MATHEW CASTILLO ADMIT DATE: 10/16/22ACCOUNT NO: [id number] ROOM NO: 6630 AGE: 62 REPORT TYPE: [...] who was initially admitted to hospital in [place] where he presented with acute urinary retention. [...] need forurology evaluation, [facility] 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 Denies any nausea, vomiting or diarrhea. Denies any chest pain, cough, expectoration, or shortness of breath. He continues to have a Black catheter in place and admits to having suprapubic areasoreness and pain, however, states that the pain and soreness he had at the timeof presentation to the [facility] has resolved. Denies any joint pains. 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 IMPRESSION: The patient with multiple comorbidities including history of schizophrenia and benign prostatic hypertrophy with worsening urinary difficulties for last over 2 years, was admitted through emergency room where hewas transferred from [facility] because of need for urology evaluation. [...] to 37.8 degrees Celsius last night and supervisor inspection department and had developed marked leukocytosis. Clinically, he [...] Dictated: 10/21/2022 03:59:46Date Transcribed: 10/21/2022 04:40:04ESTRADA/Annelise #: [id number] ID: [id number] by Skip Jaffe MD On 11/02/2022 02:22:37 AM at 0222 PATIENT NAME: ANNAMATHEW :40:00G.WA [id number] for patient xciyKDGQGJJSQQKISB6598-80-61X62:23:17 [facility] 2022-10-20 20:34:00 [id number] AJVbDpKOE1/sS97KDD5xunOMTP5ed DMhnobe+WDsMRdQ8d0gBaZv9AZj5031-82-78E82:34:00 [facility] ([facility])Nephrology Progress NoteREPORT#:[id number] REPORT STATUS: SignedDATE:10/20/22 TIME: 2033 PATIENT: MATHEW CASTILLO UNIT #: [id number]#: [id number] ROOM[facility]BED[facility]DOB: [birth year] AGE: 62 SEX: M ATTEND: Salinas [...] Coagulation INR (0.8 - 1.2) 1.1 PTT (Mathews) (25.0 - 39.5 Seconds) 26.1 PT Patient/Control [...] - 32.0 %) 9.5 L 7.3 L Frio % (Auto) (4.8 - 9.0 %) 7.2 7.5 Eos % (Auto) (0.3 - 3.7 %) 2.6 2.2 Baso % (Auto) (0.0 - 2.0 %) 0.4 0.3 Neut # (Auto) (2.0 - 7.6 x10 3/uL) 13.75 H 15.38 H Lymph # (Auto) (1.0 - 3.8 x10 3/uL) 1.67 1.40 Frio # (Auto) (0.1 - 0.8 x10 3/uL) [...] urine in his bladder. CT abdomen from [place] showed that the patient has a very [...] urine in his bladder. CT abdomen from [place] showed that the patient has a very [...] IV hydralazine Schizophrenia-Home medications resumed at 2150 [facility] #:[id number] OF REPORTPRProgress clfs8282-72-21G17:34:00G.HPTW53952975-4800MGTzkuo able for patient axmiPRBFPXKVEPWPXP5826-65-36O25:50:59 [facility] 2022-10-20 18:11:00 [id number] YDFO77NQgPQthvo4u8ftENu/7B3qc ESyMXYun+vg85VfoylvOtUngKc94899-19-50L27:11:00 [facility] Prog. NoteREPORT#:[id number] REPORT STATUS: SignedDATE:10/20/22 TIME: 1810 PATIENT: MATHEW CASTILLO UNIT #: [id number]#: [id number] ROOM/BED: 6630-1DOB: [birth year] AGE: 62 SEX: M ATTEND: Salinas Alba I [facility] AUTHOR: Sofia Cheng [employer] * ALL edits or amendments must be made on the electronic/computer document * SubjectiveChief complaint:Abdominal distention, hydronephrosisHPI:62-year-old male with last medical history of, BPH, transferred from [place] for urology evaluation and treatment secondary to [...] Coagulation INR (0.8 - 1.2) 1.1 PTT (Mathews) (25.0 - 39.5 Seconds) 26.1 PT Patient/Control [...] - 32.0 %) 9.5 L 7.3 L Frio % (Auto) (4.8 - 9.0 %) 7.2 7.5 Eos % (Auto) (0.3 - 3.7 %) 2.6 2.2 Baso % (Auto) (0.0 - 2.0 %) 0.4 0.3 Neut # (Auto) (2.0 - 7.6 x10 3/uL) 13.75 H 15.38 H Lymph # (Auto) (1.0 - 3.8 x10 3/uL) 1.67 1.40 Frio # (Auto) (0.1 - 0.8 x10 3/uL) [...] range of motion, normal sensory, normal motor functionNeuro/DELIVERER MERCHANDISE: alert, oriented X 3Skin: dry, intact, no gross abnormalitiesPsychiatry: no hallucinations, normal moodProblem List/A P: 1. Rupture of ureter Free Text DxA P NotesFree text DxA P notes:Assessment:62-year-old male with last medical history of, BPH, transferred from [place] for urology evaluation and treatment secondary to [...] neededRepeat labsFurther recommendation based on patient's clinical wxvlva5310/17/2022Vital signs within normal limitsHypokalemia 3.2, hypomagnesemia 1.50Renal [...] supportive care at 0141 at 1009 RPT #:[id number] OF REPORTPRProgress jlpu0627-79-84I80:11:00G.GEQM01106866-1145ACZjmhf able for patient ktsuKPMBMTFQFQENDC3659-32-03I83:42:15 [facility] 2022-10-20 17:06:00 [id number] wsxp/10IQEyV4uhBbbjAlukQxn3Pa OvR0/XQhZui2PybW6fqBpPRkELn6151-78-43B40:06:00 [facility] ([facility])Infect Disease Consult NoteREPORT#:[id number] REPORT STATUS: SignedDATE:10/20/22 TIME: 1706 PATIENT: MATHEW CASTILLO UNIT #: [id number]#: [id number] [address] [birth year] AGE: 62 SEX: M ATTEND: [...] Allergies:No Known Allergies (10/16/22) at 0239 RPT #:[id number] OF REPORTLFWhfokipcsacm3645-28-23T43:06:00G.PDOC2 3120077-9478DNKkhetpreb for patient miwpDVDJGSECCVJGFQ8070-84-31T28:40:06 [facility] 2022-10-20 01:07:00 [id number] 3tLECKnjqIITCo7SdVezu+AYBwgnw 7Vkq2rrH9XPf0BQLiZTZXu6OBED7927-18-50O68:07:50152 7-[address] [place] [address] PATIENT NAME: MATHEW CASTILLO ADMIT DATE: 10/16/22ACCOUNT NO: [id number] ROOM NO: 6630 AGE: 62 REPORT TYPE: eELECTROCARDIOGRAM REPORT SEX: M ADMITTING PHYSICIAN:Salinas Alba MD ATTENDING PHYSICIAN:Salinas Alba MD Order:[id number] Reason : Sepsis Test Date/Time Stamp:Jelm Oct 20 2022 01:07:09Blood Pressure : / [...] MD at 1247 PATIENT NAME: MATHEW CASTILLO .[id number] AVAvailable for patient kxyrHFCYWQTPYOJYJI2075-64-40Y28:47:27 [facility] 2022-10-19 22:43:00 Q71930697592+bH+pxod Nid1TVKG/EQh2cVETv10dGjjuV4x/ bzbjw75y2H6jMrGtpnziiY0v/S97985-81-78W29:43:00 [facility] Prog. NoteREPORT#:[id number] REPORT STATUS: SignedDATE:10/19/22 TIME: 2242 PATIENT: MATHEW CASTILLO UNIT #: [id number]#: [id number] [address] [birth year] AGE: 62 SEX: M ATTEND: Salinas Alba I [facility] AUTHOR: Sofia Cheng NP * ALL edits or amendments must be made on the electronic/computer document * SubjectiveChief complaint:Abdominal distention, hydronephrosisHPI:62-year-old male with last medical history of, BPH, transferred from [place] for urology evaluation and treatment secondary to [...] 10/19 10/19 10/19 1917 1615 1135 0773 0347 Chemistry Sodium (134 - 147 mEq/L) [...] - 32.0 %) 15.7 15.6 10.6 L Frio % (Auto) (4.8 - 9.0 %) 8.5 10.1 H 12.8 H Eos % (Auto) (0.3 - 3.7 %) 6.0 H 7.5 H 2.7 Baso % (Auto) (0.0 - 2.0 %) 0.7 0.7 0.4 Neut # (Auto) (2.0 - 7.6 x10 3/uL) 6.09 5.53 8.23 H Lymph # (Auto) (1.0 - 3.8 x10 3/uL) 1.48 1.39 1.22 Frio # (Auto) (0.1 - 0.8 x10 3/uL) [...] pH (5.0 - 7.0) 5.0 Ur Specific [place] (1.005 - 1.030) 1.015 Urine Protein (NEGATIVE) [...] Pulse Resp B/P B/P Mean Pulse Ox IbG412/-10/19 37.0-37.2 66-85 14-17 105-142/67-80 80.3-100.6 95-98 Last [...] range of motion, normal sensory, normal motor functionNeuro/DELIVERER MERCHANDISE: alert, oriented X 3Skin: dry, intact, no gross abnormalitiesPsychiatry: no hallucinations, normal moodProblem List/A P: 1. Rupture of ureter Free Text DxA P NotesFree text DxA P notes:Assessment:62-year-old male with last medical history of, BPH, transferred from [place] for urology evaluation and treatment secondary to [...] neededRepeat labsFurther recommendation based on patient's clinical kblldc6810/17/2022Vital signs within normal limitsHypokalemia 3.2, hypomagnesemia 1.50Renal [...] present care at 0229 at 1514 RPT #:[id number] OF REPORTPRProgress unfl7217-40-65V74:43:00G.IGPU66815615-6335XQVfaqk able for patient djsfIORGXOIFFCHNBB8363-73-45G94:29:44 [facility] 2022-10-19 20:14:00 C98302744468Y9U/jmkQ hzVRRM2Jr/s0OmTi6aPvgoh7Ws+fabi Of6xK02S39xR/ggMIROcdJy5Efr7499-53-69R65:14:00 [facility]Ne[facility] Progress NoteREPORT#:[id number] REPORT STATUS: SignedDATE:10/19/22 TIME: 2013 PATIENT: MATHEW CASTILLO UNIT #: [id number]#: [id number] [address] [birth year] AGE: 62 SEX: M ATTEND: [...] 10/19 10/19 10/19 10/19 10/18 1615 1135 0787 0344 2021 Chemistry Sodium (134 - 147 mEq/L) [...] % (Auto) (14.0 - 32.0 %) 15.7 Frio % (Auto) (4.8 - 9.0 %) 8.5 Eos % (Auto) (0.3 - 3.7 %) 6.0 H Baso % (Auto) (0.0 - 2.0 %) 0.7 Neut # (Auto) (2.0 - 7.6 x10 3/uL) 6.09 Lymph # (Auto) (1.0 - 3.8 x10 3/uL) 1.48 Frio # (Auto) (0.1 - 0.8 x10 3/uL) [...] pH (5.0 - 7.0) 5.0 Ur Specific [place] (1.005 - 1.030) 1.015 Urine Protein (NEGATIVE) [...] urine in his bladder. CT abdomen from [place] showed that the patient has a very [...] urine in his bladder. CT abdomen from [place] showed that the patient has a very [...] IV hydralazine Schizophrenia-Home medications resumed at 2148 [facility] #:[id number] OF REPORTPRProgress ndib2723-58-76G50:14:00G.IBEE11314264-7412PWRnirc able for patient hdfdNMMBKVOBIHHHCF8305-45-48I61:49:08 [facility] 2022-10-18 20:26:00 L60255513178i4oWhSYf W63oNM7nQnDoGFEnvJlFYtMGGhab6 sblLOfUxsLrGnxvTJJUWYx/ITw+6490-95-38A13:26:00 [facility] Prog. NoteREPORT#:[id number] REPORT STATUS: SignedDATE:10/18/22 TIME: 2025 PATIENT: MATHEW CASTILLO UNIT #: [id number]#: [id number] ROOM/BED: 6630-1DOB: [birth year] AGE: 62 SEX: M ATTEND: Salinas Alba I [facility] AUTHOR: Sofia Cheng [employer] * ALL edits or amendments must be made on the electronic/computer document * SubjectiveChief complaint:Abdominal distention, hydronephrosisHPI:62-year-old male with last medical history of, BPH, transferred from [place] for urology evaluation and treatment secondary to [...] % (Auto) (14.0 - 32.0 %) 15.6 Frio % (Auto) (4.8 - 9.0 %) 10.1 H Eos % (Auto) (0.3 - 3.7 %) 7.5 H Baso % (Auto) (0.0 - 2.0 %) 0.7 Neut # (Auto) (2.0 - 7.6 x10 3/uL) 5.53 Lymph # (Auto) (1.0 - 3.8 x10 3/uL) 1.39 Frio # (Auto) (0.1 - 0.8 x10 3/uL) [...] range of motion, normal sensory, normal motor functionNeuro/DELIVERER MERCHANDISE: alert, oriented X 3Skin: dry, intact, no gross abnormalitiesPsychiatry: no hallucinations, normal moodProblem List/A P: 1. Rupture of ureter Free Text DxA P NotesFree text DxA P notes:Assessment:62-year-old male with last medical history of, BPH, transferred from [place] for urology evaluation and treatment secondary to [...] neededRepeat labsFurther recommendation based on patient's clinical wltjbl0410/17/2022Vital signs within normal limitsHypokalemia 3.2, hypomagnesemia 1.50Renal [...] supportive care at 2012 at 1301 RPT #:[id number] OF REPORTPRProgress dbsn0644-78-25M24:26:00G.DIWW09192249-3565LZIhseq able for patient wgwiMCAJJCXPMTVZGQ4486-89-00P97:12:32 [facility] 2022-10-18 17:48:00 [id number] fE+DbIPobtkAIKLK4UqwL4rQNR43g T6uqG9kcEfuh9C/tMQNpz1dcxKF6826-33-79H62:48:00 [facility]Ne[facility] Progress NoteREPORT#:[id number] REPORT STATUS: SignedDATE:10/18/22 TIME: 1747 PATIENT: MATHEW CASTILLO UNIT #: [id number]#: [id number] ROOM/BED: 6630-1DOB: [birth year] AGE: 62 SEX: M ATTEND: Salinas Alba I [facility] AUTHOR: Carmen Kemp * ALL edits or [...] % (Auto) (14.0 - 32.0 %) 15.6 Frio % (Auto) (4.8 - 9.0 %) 10.1 H Eos % (Auto) (0.3 - 3.7 %) 7.5 H Baso % (Auto) (0.0 - 2.0 %) 0.7 Neut # (Auto) (2.0 - 7.6 x10 3/uL) 5.53 Lymph # (Auto) (1.0 - 3.8 x10 3/uL) 1.39 Frio # (Auto) (0.1 - 0.8 x10 3/uL) [...] urine in his bladder. CT abdomen from [place] showed that the patient has a very [...] urine in his bladder. CT abdomen from [place] showed that the patient has a very [...] K and magnesium supplementation. at 1937 RPT #:[id number] OF REPORTPRProgress [id number]:48:00G.[id number] able for patient [id number]:50:34 [facility] 2022-10-17 22:43:00 [id number] [id number]+tGOX0BuIni7A 7cqstVR302zPbJ3z14wieo4cAuG9149-03-52F01:43:00 [facility] ([facility])Internal Medicine Prog. NoteREPORT#:[id number] REPORT STATUS: SignedDATE:10/17/22 TIME: 2242 PATIENT: MATHEW CASTILLO UNIT #: [id number]#: [id number] [address] [birth year] AGE: 62 SEX: M ATTEND: [place] [facility] AUTHOR: Sofia Cheng [employer] * ALL edits or amendments must be made on the electronic/computer document * SubjectiveChief complaint:Abdominal distention, hydronephrosisHPI:62-year-old male with last medical history of, BPH, transferred from [place] for urology evaluation and treatment secondary to [...] Pulse Resp B/P B/P Mean Pulse Ox MrR334/12-10/17 37.2-37.5 83-100 16-18 119-133/70-79 86.3-96.8 93-95 Last [...] (Auto) (14.0 - 32.0 %) 10.6 L Frio % (Auto) (4.8 - 9.0 %) 12.8 H Eos % (Auto) (0.3 - 3.7 %) 2.7 Baso % (Auto) (0.0 - 2.0 %) 0.4 Neut # (Auto) (2.0 - 7.6 x10 3/uL) 8.23 H Lymph # (Auto) (1.0 - 3.8 x10 3/uL) 1.22 Frio # (Auto) (0.1 - 0.8 x10 3/uL) [...] range of motion, normal sensory, normal motor functionNeuro/DELIVERER MERCHANDISE: alert, oriented X 3Skin: dry, intact, no gross abnormalitiesPsychiatry: no hallucinations, normal moodProblem List/A P: 1. Rupture of ureter Free Text DxA P NotesFree text DxA P notes:Assessment:62-year-old male with last medical history of, BPH, transferred from [place] for urology evaluation and treatment secondary to [...] neededRepeat labsFurther recommendation based on patient's clinical iewnjj0710/17/2022Vital signs within normal limitsHypokalemia 3.2, hypomagnesemia 1.50Renal function is improved, discontinue bicarb drip, continue electrolyte control-replace as needed per nephroUrology is followingContinue tamsulosinBP control-on hydralazine as needed, pain controlContinue telemetry monitoring, intake and output, fall precautionFollow-up labs, continue medications and supportive care at 0210 at 1300 RPT #:[id number] OF REPORTPRProgress fyud1557-80-84Z51:43:00G.[id number] able for patient vmupIHZPAPFTEUXDAS2952-08-92Z72:10:49 [facility] 2022-10-17 17:41:00 [id number] O6ZyBEc3YOnNPs43G0l162qfjjtOl Tf6/7+3gVz2fhPiGodmhlmFCC1j9232-25-03F29:41:00 [facility] ([facility])Urology Progress NoteREPORT#:[id number] REPORT STATUS: SignedDATE:10/17/22 TIME: 1740 PATIENT: MATHEW CASTILLO UNIT #: [id number]#: [id number] [address] AGE: 62 SEX: M ATTEND: [...] (Auto) (14.0 - 32.0 %) 10.6 L Frio % (Auto) (4.8 - 9.0 %) 12.8 H Eos % (Auto) (0.3 - 3.7 %) 2.7 Baso % (Auto) (0.0 - 2.0 %) 0.4 Neut # (Auto) (2.0 - 7.6 x10 3/uL) 8.23 H Lymph # (Auto) (1.0 - 3.8 x10 3/uL) 1.22 Frio # (Auto) (0.1 - 0.8 x10 3/uL) [...] ofr cystoscopy. Home with black at 1742 [facility] #:[id number] OF REPORTPRProgress xcbr9779-79-92P24:41:00G.PIWF33365936-5984CXSmslt able for patient wqkuAPNWOBPHKANMEN8839-41-11B08:42:28 [facility] 2022-10-17 13:46:00 [id number] Yy6hJFQl2jRoumgsTdHkIcZZcyhIy 7mSwklDricwq5CEBxtTpBhd4rIX7471-56-27Z29:46:00 [facility] Progress NoteREPORT#:[id number] REPORT STATUS: SignedDATE:10/17/22 TIME: 1346 PATIENT: MATHEW CASTILLO UNIT #: [id number]#: [id number] [address] AGE: 62 SEX: M ATTEND: Salinas Alba I [facility] AUTHOR: Carmen Kemp * ALL edits or [...] (Auto) (14.0 - 32.0 %) 10.6 L Frio % (Auto) (4.8 - 9.0 %) 12.8 H Eos % (Auto) (0.3 - 3.7 %) 2.7 Baso % (Auto) (0.0 - 2.0 %) 0.4 Neut # (Auto) (2.0 - 7.6 x10 3/uL) 8.23 H Lymph # (Auto) (1.0 - 3.8 x10 3/uL) 1.22 Frio # (Auto) (0.1 - 0.8 x10 3/uL) [...] urine in his bladder. CT abdomen from [place] showed that the patient has a very [...] urine in his bladder. CT abdomen from [place] showed that the patient has a very [...] above A/P at 1759 at 2234 RPT #:[id number] OF REPORTPRProgress jhkl1283-70-73W84:46:00G.GDTK25698455-9418NMNbywv able for patient xktoIYEMVXOVVFDXWP3101-58-74T11:00:00 [facility] 2022-10-16 15:13:00 [id number] tHmgyEWopWCnc9U56uBr8GXM8ho0J fs8WFShlYFD6lFyJO1K7xij9Pe15136-37-93Z36:13:70010 2-[address] [place] [address] PATIENT NAME: MATHEW CASTILLO ADMIT DATE: 10/16/22ACCOUNT NO: [id number] ROOM NO: G.6630 AGE: 62 REPORT TYPE: CONSULTATION REPORT SEX: M ADMITTING PHYSICIAN:Salinas Alba MD ATTENDING PHYSICIAN:Salinas Alba MD CONSULTATION DATE:10/16/2022 REASON FOR CONSULTATION: Hydronephrosis, urinary retention. HISTORY OF PRESENT ILLNESS: This is a 62-year-old male with a history ofschizophrenia who was sent in from [place]. He had reportedly almost 3liters of urine [...] pressure 134/86, pulse 94, respiratory rate 18, xidqbcikcwt33.1, 93% on room air.GENERAL: Alert. No acute distress, nontoxic.HEENT: Normocephalic, atraumatic. Nontoxic.NECK: Supple.HEART: Regular rate and rhythm.LUNGS: Respirations unlabored.ABDOMEN: Soft, nontender, nondistended. No CVA tenderness.EXTREMITIES: Moving all extremities well. LABORATORY DATA: White blood cell count 11, hemoglobin 10.9, platelets 207.Creatinine was 2.1 on admission, now down to 1.4. ASSESSMENT AND PLAN: We reviewed the CT scan of the abdomen and pelvis from [facility]. The patient has a very large [...] Dictated: 10/16/2022 15:13:22Date Transcribed: 10/16/2022 16:06:29TESSIE/Yulisa #: [id number] ID: [id number] and Edited by Dave Jones MD On 11/12/22 1:37:06 PM at 0138 PATIENT NAME: MATHEW CASTILLO :06:00G.WA [id number] for patient tcqjSBJJFRDYQFFBYA1683-67-17X59:40:23 [facility] 2022-10-16 12:39:00 [id number] VXnVQ/CxDzb0KMtl9xyDRrREgp+PL QX1KhsxZXctJeCFDq9d4pE4ZpIM1310-98-06E96:39:00 [facility] ([facility])Nephrology Consultation NoteREPORT#:[id number] REPORT STATUS: SignedDATE:10/16/22 TIME: 1239 PATIENT: MATHEW CASTILLO UNIT #: [id number]#: [id number] [address] AGE: 62 SEX: M ATTEND: Salinas Alba I [facility] AUTHOR: Carmen Kemp * ALL edits or [...] Friday who took him to ER in [place]. He had CT abdomen which revealed b/l hydronephrosis and concern for possible ureteral rupture. He was transferred to [facility] for Urology evaluation. Initial VS at the [...] (Auto) (14.0 - 32.0 %) 3.8 L Frio % (Auto) (4.8 - 9.0 %) 13.6 H Eos % (Auto) (0.3 - 3.7 %) 0.4 Baso % (Auto) (0.0 - 2.0 %) 0.2 Neut # (Auto) (2.0 - 7.6 x10 3/uL) 8.96 H Lymph # (Auto) (1.0 - 3.8 x10 3/uL) 0.42 L Frio # (Auto) (0.1 - 0.8 x10 3/uL) [...] urine in his bladder. CT abdomen from [place] showed that the patient has a very [...] urine in his bladder. CT abdomen from [place] showed that the patient has a very [...] patient's nurse, and . Toby Koehler 10/16/22 8925:Attestations Physician AttestationReviewed findings plan:Patient examined 62 years old male with PMH significant for schizophrenia, HTN, BPH, current everyday smoker. The patient states that on Friday last week, he noted abdominal distention, associated w/ pain and was unable to urinate. He wasseen by his daughter Friday who took him to ER in [place]. He had CT abdomen which revealed b/l hydronephrosis and concern for possible ureteral rupture. He was transferred to [facility] for Urology evaluation. Initial VSat [...] above A/P at 1902 at 2211 RPT #:[id number] OF REPORTHWHjddrgnafzli9622-49-01H21:39:00G.PDOC2 [id number] for patient qqtiOZBKUCKSWMALXU1500-26-70Q35:02:18 [facility] 2022-10-16 11:15:00 [id number]+uyISa nluAb/GSRjyAdpiQmdX1fR0DPvXso pFp8bGQKyglDcOE9dXF73IX5hdN5065-32-04C94:15:00 [facility] ([facility])History Physical - AdultREPORT#:[id number] REPORT STATUS: SignedDATE:10/16/22 TIME: 1115 PATIENT: MATHEW CASTILLO SINCERE UNIT #: [id number]#: [id number] ROOM[facility]BED: [facility]DOB: [birth year] AGE: 62 SEX: M ATTEND: Salinas Alba I [facility] AUTHOR: Sofia Cheng NP * ALL edits or amendments must be made on the electronic/computer document * History of Present Illness HPIChief complaint:Abdominal distention, hydronephrosisHPI:62-year-old male with last medical history of, BPH, transferred from [place] for urology evaluation and treatment secondary to [...] range of motion, normal sensory, normal motor functionNeuro/DELIVERER MERCHANDISE: alert, oriented X 3Skin: dry, intact, no [...] (Auto) (14.0 - 32.0 %) 3.8 L Frio % (Auto) (4.8 - 9.0 %) 13.6 H Eos % (Auto) (0.3 - 3.7 %) 0.4 Baso % (Auto) (0.0 - 2.0 %) 0.2 Neut # (Auto) (2.0 - 7.6 x10 3/uL) 8.96 H Lymph # (Auto) (1.0 - 3.8 x10 3/uL) 0.42 L Frio # (Auto) (0.1 - 0.8 x10 3/uL) [...] last medical history of, BPH, transferred from [place] for urology evaluation and treatment secondary to [...] clinical course at 0232 at 1204 RPT #:[id number] OF REPORTHPHistory and physical sevxqixymls8128-43-94D46:15:00G.[id number] AVAvailable for patient fdojBMIQLKGKRTHBIO4525-02-34G58:32:18 [facility] 2022-10-16 03:54:00 [id number]+AgTxa y2r/akpt7QDrD6VXYLHI8sfr9dgwe k6oyhzWk2N9mrTeDy+jEmVfRc2V0644-46-50E44:54:00 [facility] ([facility])EMERGENCY PROVIDER REPORTREPORT#:[id number] REPORT STATUS: SignedDATE:10/16/22 TIME: 035 PATIENT: MATHEW CASTILLO UNIT #: [id number]#: [id number] [address] SEX: M PCP PHYS: No [...] (Auto) (14.0 - 32.0 %) 3.8 L Frio % (Auto) (4.8 - 9.0 %) 13.6 H Eos % (Auto) (0.3 - 3.7 %) 0.4 Baso % (Auto) (0.0 - 2.0 %) 0.2 Neut # (Auto) (2.0 - 7.6 x10 3/uL) 8.96 H Lymph # (Auto) (1.0 - 3.8 x10 3/uL) 0.42 L Frio # (Auto) (0.1 - 0.8 x10 3/uL) [...] 10/16 Sodium Chloride 10 ML IV 10/16 [id number] ConsultationConsultation Referral/Consult Name Dave Jones MD Line Prep Cook Called Urology Line Prep Cook Discussed with media sales consultant Requested Call Time 0345 Requested Call [...] DecisionHospitalize Hosp Physician Name Salinas Alba MD [facility] Physician Hospitalist Request Time 0508 Request [...] chart for administrative purposes only. at 1907RPT #:[id number] OF REPORTEDEmerarkansas heart hospital department luuteo1707-25-07R36:54:00G.[id number] ilable for patient yyhsAOBNLMRFVWJHWY6950-11-93Q32:07:49 [facility]
[2023-10-02 15:27] LABS: Specific Gravity 1.022 (1.005-1.030); Sqamous Epithelial None Seen /HPF (None Seen); Urine Bacteria <20 /HPF (<20); Urine Bilirubin NEGATIVE (Negative); Urine Blood 3+ (Negative); Urine Clarity Extremely Turbid (Clear); Urine Color Light-Yellow (Yellow); Urine Crystals Unidentified Few /HPF (None Seen); Urine Culture Reflex Order REFLEXED; Urine Glucose NEGATIVE (Negative); Urine Ketones NEGATIVE (Negative); Urine Micro Reflex YN NO BILL MICROSCOPIC; Urine Mucus Slight /HPF (None Seen); Urine Nitrite NEGATIVE (Negative); Urine Protein 2+ (Negative); Urine RBC >50 /HPF (None Seen); Urine Urobilinogen Normal (Normal); Urine WBC >50 /HPF (<5); Urine WBC Clump Rare /HPF (None Seen); Urine Yeast (Budding) Trace /HPF (None Seen); Urine pH 6.5 (5.0-7.0)
--- NOTE | 2023-10-02 15:38 | ER ---
Nurse's Notes [facility] Name: Mathew Porter Age: 63 yrs Sex: Male : 1960 Arrival Date: 10/02/2023 Time: 11:44 Bed 23 Private MD: Diagnosis: Encounter for replacement of Johns catheter Presentation: 10/01 12:34 Chief complaint: Patient states: Needs catheter replaced. No fever or pain. Coronavirus ll1 screen: Client denies travel out of the [place] in the last 14 days. At this time, the client does not indicate any symptoms associated with coronavirus-19. Ebola Screen: Patient denies travel to an Ebola-affected area in the 21 days before illness onset. Initial Sepsis Screen: Does the patient meet any 2 criteria? No. Patient's initial sepsis screen is negative. Does the patient have a suspected source of infection? No. Patient's initial sepsis screen is negative. Risk Assessment: Do you want to hurt yourself or someone else? Patient reports no desire to harm self or others. Onset of symptoms was September 01, 2023. 12:34 Method Of Arrival: Ambulatory ll1 12:34 Acuity: JAMILA 4 ll1 Triage Assessment: 12:34 General: Appears in no apparent distress. Behavior is calm, cooperative, appropriate ll1 for age. Pain: Denies pain. : Reports needs new urinary catheter. Historical: - Allergies: 12:34 NKA; ll1 - PMHx: 12:34 Schizophrenia; ll1 - PSHx: 12:34 Urolift (December); ll1 - Immunization history:: Adult Immunizations up to date. - Infectious Disease History:: Denies. - Social history:: Smoking status: Patient reports the use of cigarette tobacco products, smokes one pack cigarettes per day. - Family history:: not pertinent. Screenin:00 [facility] ED Fall Risk Assessment (Adult) History of falling in the last 3 months, kb3 including since admission No falls in past 3 months (0 pts) Confusion or Disorientation No (0 pts) Intoxicated or Sedated No (0 pts) Impaired Gait No (0 pts) Mobility Assist Device Used No (0 pt) Altered Elimination No (0 pt) Score/Fall Risk Level 0 - 2 = Low Risk Oriented to surroundings, Maintained a safe environment, Educated pt \T\ family on fall prevention, incl call for assistance when getting out of bed. Abuse screen: Denies threats or abuse. Denies injuries from another. Nutritional screening: No deficits noted. Tuberculosis screening: No symptoms or risk factors identified. Assessment: 14:00 General: Appears in no apparent distress. comfortable, Behavior is calm, cooperative. kb3 Pain: Denies pain. : Denies Pt reports no pain. Currently has an indwelling johns catheter that needs to be changed. Vital Signs: 12:34 BP 158 / 94; Pulse 66; Resp 17; Temp 97.6; Pulse Ox 98% ; Weight 70.31 kg; Height 5 ft. ll1 10 in. ; Pain 0/10; 12:34 Body Mass Index 22.24 (70.31 kg, 177.8 cm) ll1 12:34 Pain Scale: Adult ll1 ED Course: 11:50 Patient arrived in ED. mr 12:34 Arm band placed on. ll1 12:35 Triage completed. ll1 12:36 Silvestre Sheppard MD is Attending Physician. rt 14:00 Patient has correct armband on for positive identification. Bed in low position. kb3 Provided Education on: Plan of care. 14:00 No provider procedures requiring assistance completed. Patient did not have IV access kb3 during this emergency room visit. 14:15 Johns cath removed intact, balloon deflated. bc6 14:30 Johns cath inserted, using sterile technique, 16 Fr., by me, balloon inflated, to bc6 gravity drainage. Administered Medications: No medications were administered Medication: 14:00 VIS not applicable for this client. kb3 Outcome: 15:37 Discharge ordered by . rt 15:55 Discharged to home ambulatory, jl7 15:55 Condition: stable 15:55 Discharge instructions given to patient, Instructed on discharge instructions, follow up and referral plans. Demonstrated understanding of instructions, follow-up care, 15:56 Patient left the ED. jl7 Addendum: 10/06/2023 12:03 Addendum: Culture Results: Positive urine culture. Bacteria is resistant to, has a a5 intermediate sensitivity, or is not tested against prescribed antibiotics. Report given to LOAN for further evaluation and then to data typist for follow up with patient. Prescription called-in to pharmacy of choice. to [facility] pharmacy in [place], [place]. Called in Macrobid 100mg BID x 7 days and Bactrim DS BID x 7 days per LEANA Tarango. Pt was also instructed to stop taking Cephalexin, pt verbalized understanding. Signatures: Abhi Rylee, Reg Reg mr Victor Marleny, RN RN aa5 Nadeem Tyson, RN RN jl7 Brandt Stout, RN RN ll1 Alexa Ellington, RN RN kb3 Silvestre Sheppard MD MD rt Genna Mckenzie 6 Corrections: (The following items were deleted from the chart) 12:06 12:03 Addendum: Culture Results: Positive urine culture. Bacteria is resistant to, has aa5 intermediate sensitivity, or is not tested against prescribed antibiotics. Report given to LOAN for further evaluation and then to data typist for follow up with patient. Prescription called-in to pharmacy of choice. to [facility] pharmacy in [place], [place]. Called in Macrobid 100mg BID x 7 days and Bactrim DS BID x 7 days per LEANA Tarango. aa5
--- NOTE | 2023-10-02 15:38 | EDPHYS ---
Physician Documentation [facility] Name: Mathew Porter Age: 63 yrs Sex: Male : 1960 Arrival Date: 10/02/2023 Time: 11:44 Bed 23 Private MD: ED Physician Silvestre Sheppard HPI: 10/01 15:20 This 63 yrs old Male presents to ER via Ambulatory with complaints of Needs Urinary rt Catheter Replacement. 15:20 Patient presents to the ED requesting Mercer catheter replacement due to being in for rt about 1 month. He denies any symptoms at this time, denies other acute complaints, symptoms are mild in severity, no other aggravating alleviating factors.. Historical: - Allergies: 12:34 NKA; ll1 - PMHx: 12:34 Schizophrenia; ll1 - PSHx: 12:34 Urolift (December); ll1 - Immunization history:: Adult Immunizations up to date. - Infectious Disease History:: Denies. - Social history:: Smoking status: Patient reports the use of cigarette tobacco products, smokes one pack cigarettes per day. - Family history:: not pertinent. ROS: 15:20 Constitutional: Negative for fever, chills, and weight loss, Cardiovascular: Negative rt for chest pain, palpitations, and edema, Respiratory: Negative for shortness of breath, cough, wheezing, and pleuritic chest pain, Abdomen/GI: Negative for abdominal pain, nausea, vomiting, diarrhea, and constipation, : Negative for injury, bleeding, discharge, and swelling, MS/Extremity: Negative for injury and deformity, Skin: Negative for injury, rash, and discoloration, Exam: 15:20 Constitutional: This is a well developed, well nourished patient who is awake, alert, rt and in no acute distress. Head/Face: Normocephalic, atraumatic. Chest/axilla: Normal chest wall appearance and motion. Nontender with no deformity. No lesions are appreciated. Cardiovascular: Regular rate and rhythm with a normal S1 and S2. No gallops, murmurs, or rubs. Normal PMI, no JVD. No pulse deficits. Respiratory: Lungs have equal breath sounds bilaterally, clear to auscultation and percussion. No rales, rhonchi or wheezes noted. No increased work of breathing, no retractions or nasal flaring. Abdomen/GI: Soft, non-tender, with normal bowel sounds. No distension or tympany. No guarding or rebound. No evidence of tenderness throughout. Skin: Warm, dry with normal turgor. Normal color with no rashes, no lesions, and no evidence of cellulitis. MS/ Extremity: Pulses equal, no cyanosis. Neurovascular intact. Full, normal range of motion. Neuro: Awake and alert, GCS 15, oriented to person, place, time, and situation. Cranial nerves II-XII grossly intact. Motor strength 5/5 in all extremities. Sensory grossly intact. Cerebellar exam normal. Normal gait. Vital Signs: 12:34 BP 158 / 94; Pulse 66; Resp 17; Temp 97.6; Pulse Ox 98% ; Weight 70.31 kg; Height 5 ft. ll1 10 in. ; Pain 0/10; 12:34 Body Mass Index 22.24 (70.31 kg, 177.8 cm) ll1 12:34 Pain Scale: Adult ll1 MDM: 13:51 Patient medically screened. rt 15:42 Differential Diagnosis Mercer catheter placement, UTI. Data reviewed: vital signs, rt nurses notes, lab test result(s). Counseling: I had a detailed discussion with the patient and/or guardian regarding the historical points, exam findings, and any diagnostic results supporting the discharge/admit diagnosis, lab results, the need for outpatient follow up. 10/01 13:14 Order name: UAChapin; Complete Time: 15:28 rt 10/01 15:30 Order name: Urine Culture EDMD 10/01 13:14 Order name: Ruslan; Complete Time: 14:29 rt Administered Medications: No medications were administered Disposition Summary: 10/02/23 15:37 Discharge Ordered Notes: Location: Home rt Problem: new rt Symptoms: have improved rt Condition: Stable rt Diagnosis - Encounter for replacement of Mercer catheter rt Followup: rt - With: Private Physician - When: 2 - 3 days - Reason: Discharge Instructions: - Discharge Summary Sheet rt - Indwelling Urinary Catheter Insertion, Care After rt Forms: - Medication Reconciliation Form rt - Antibiotic Education rt - Prescription Opioid Use rt - Patient Portal Instructions rt - Leadership Thank You Letter rt Prescriptions: - Cephalexin 500 mg Oral Capsule - take 1 capsule ORAL route every 8 hours for 10 days; 30 capsule; Refills: 0, rt Product Selection Permitted Signatures: Dispatcher [employer] Brandt Yang, RN RN ll1 Silvestre Sheppard MD MD rt
[2023-10-02 16:20] VITALS: BP 158/94; TEMP 97.6; O2SAT 98
== END 2023-10-02 15:56 | disposition home or self-care (01) ==
LOC: ER 11:44
DX: Z46.6 Encounter for fitting and adjustment of urinary device (principal); F17.210 Nicotine dependence, cigarettes, uncomplicated
CPT/HCPCS: 51702; 81001; 87077; 87086; 87088; 87186; 99284

== ENCOUNTER 2023-11-05 13:14 | Emergency (ER) | payer OTHER ==
--- OUTSIDE RECORDS SUMMARY | 2023-11-05 13:20 | XMS REPORT | Continuity of Care Document ---
Author Name Unknown Address [address] [facility] [place] [place] [id number] [facility] thconnect Address [address] [facility] [place] [place] [address] Care Team Providers Care Pattern Scratcher Name Role Phone Salinas Alba I Attending [...] s DA Active U 10-16 00:00: 00 [facility] Encounters Start Date/Time End Date/Time Encounter Type Admission Type Attending Clinicians Care Facility Care Department Encounter ID Source 2023-01-21 06:38:00 2023-01-22 20:00:00 Inpatient EM Salinas Alba [facility]01 [id number] [facility] 2023-01-06 15:12:00 2023-01-11 21:08:00 Inpatient EM Salinas lAba [facility]01 [id number] 41 [facility] 2022-10-16 05:03:00 2022-10-26 19:41:00 Inpatient EM Salinas Alba [facility]01 [id number] [facility] Results Test Description Test Time Test Comments Results Resul t Comments Source - CT ABD PELVIS W/CONT 2023-01-05 8 13:00:00 [facility] 1960 Sex: M Name: MATHEW CASTILLO [facility] : 1960 Age/S: 62 / M [address] [place] [address] Blvd Unit #: [id number] Loc: [place] [address] Phys: Sofia Cheng HIDE AND SKIN FLESHING MACHINE OPERATOR Acct: [id number] Dis Date: Status: ADM IN PHONE #: [phone] Exam Date: 01/22/2023 1231 FAX #: [phone] Reason: ABD PAIN EXAMS: CPT CODE: [id number] CT ABD PELVIS W/CONT 11708 EXAM: CT abdomen and pelvis with contrast [...] 1 Signed Report (CONTINUED) Name: MATHEW CASTILLO [facility] : 1960 Age/S: 62 / M [address] [place] [address] Blvd Unit #: [id number] Loc: [place] [address] Phys: Sofia Cheng HIDE AND SKIN FLESHING MACHINE OPERATOR Acct: [id number] Dis Date: Status: ADM IN PHONE #: [phone] Exam Date: 01/22/2023 1231 FAX #: [phone] Reason: ABD PAIN EXAMS: CPT CODE: [id number] CT ABD PELVIS W/CONT 57644 (Continued) abdominal aortic aneurysm. Pelvic organs/bladder: Moderate [...] M.D. CC: Lakhwinder Guillermo MD; Sofia Cheng HIDE AND SKIN FLESHING MACHINE OPERATOR; Salinas Dukes MD Technologist:Rick Moran Jr, RT(R)(CT) CTDI: DLP: Trnscb Date/Time: 01/22/2023 (1300) t.SDR.BC0 Orig Print D/T: S: 01/22/2023 (4775) PAGE 2 Signed Report [id number] 07:46:00* Test Item Value Reference Range Interpretation Comme nts PHOSPHOROUS (test code = PHOS) 2.4 MG/DL 2.5-4.9 L [id number] 07:46:00* Test Item Value Reference Range Interpretation Comme nts MAGNESIUM (test code = MAG) 1.69 mg/dL 1.6-2.6 N NOTE: NEW NORMAL RANGE CBC W/AUTO [id number] 07:05:00* Test Item Value Reference Range Interpretation [...] 0.00 x10 3/uL 0.0-0.1 N BASIC METABOLIC [id number] 06:08:00* Test Item Value Reference Range Interpretation [...] CA) 8.2 mg/dL 8.0-10.5 N CBC W/AUTO [id number] 05:57:00* Test Item Value Reference Range Interpretation [...] c ode = MDIFF) NO CBC W/AUTO [id number] 08:15:00* Test Item Value Reference Range Interpretation [...] 0.00 x10 3/uL 0.0-0.1 N BASIC METABOLIC [id number] 07:28:00* Test Item Value Reference Range Interpretation [...] CA) 8.6 mg/dL 8.0-10.5 N BASIC METABOLIC [id number] 07:46:00* Test Item Value Reference Range Interpretation [...] CA) 8.7 mg/dL 8.0-10.5 N CBC W/AUTO [id number] 07:34:00* Test Item Value Reference Range Interpretation [...] 0.00 x10 3/uL 0.0-0.1 N CBC W/AUTO [id number] 08:43:00* Test Item Value Reference Range Interpretation [...] c ode = MDIFF) NO BASIC METABOLIC [id number] 07:14:00* Test Item Value Reference Range Interpretation [...] CA) 7.8 mg/dL 8.0-10.5 L CBC W/AUTO [id number] 08:58:00* Test Item Value Reference Range Interpretation [...] c ode = MDIFF) NO BASIC METABOLIC [id number] 08:27:00* Test Item Value Reference Range Interpretation [...] HGBA1C%) 5.1 %A1C 4.8-6.0 N CBC W/AUTO [id number] 08:05:00* Test Item Value Reference Range Interpretation [...] (test code = MDIFF) NO BASIC METABOLIC [id number] 07:46:00* Test Item Value Reference Range Interpretation [...] = LDL) 104.0 mg/dL 0-100 H <100 AXYODLJ82 0-129 NEAR OPTIMAL/ABOVE [id number] [id number] HIGH>XW=134 VERY HIGH*Guidelines provided by the National Cholesterol EducationProgram Adult Treatment Panel III [id number] 07:46:00* Test Item Value Reference Range Interpretation Comme nts PHOSPHOROUS (test code = PHOS) 3.4 MG/DL 2.5-4.9 N [id number] 07:46:00* Test Item Value Reference Range Interpretation Comme nts MAGNESIUM (test code = MAG) 1.69 mg/dL 1.6-2.6 N NOTE: NEW NORMAL RANGE TSH REFLEX TO [id number] 07:46:00* Test Item Value Reference Range Interpretation Comme nts TSH REFLEX TO FT4 (test code = TSHREFLEX) 2.37 IU/mL 0.42-5.47 N LACTIC [id number] 05:48:00* Test Item Value Reference Range Interpretation Comme nts LACTIC ACID (test code = LACT) 1.1 mmol/L 0.4-1.9 N LACTIC ACID [id number] 02:38:00* Test Item Value Reference Range Interpretation Comme nts LACTIC ACID REPEAT (test cod e = LACTR) 0.9 mmol/l 0.4-1.9 N CALLED SEVERINO @01:18 TO REMIND WE NEEDED REPEATLACTIC [id number] 22:36:00* Test Item Value Reference Range Interpretation Comme nts LACTIC ACID (test code = LACT) 2.9 mmol/L 0.4-1.9 H UA RFLX MICR CULT IF [id number] 22:35:00* Test Item Value Reference Range Interpretation [...] Less than 14 days- CT ABD PELVIS [id number] 22:24:00 [facility] MATHEW CASTILLO : 1960 Sex: M Name: MATHEW CASTILLO [facility] [place] [facility] : 1960 Age/S: 62 / M [address] Unit #: [id number] Loc: [place] [address] Phys: Vee Horton Acct: [id number] Dis Date: Status: [facility] ER PHONE #: [phone] Exam Date: 01/04/2023 0940 FAX #: [phone] Reason: GROSS HEMATURIA EXAMS: CPT CODE: [id number] CT ABD PELVIS W/CONT 69030 H 20 TIME OF STUDY: 01/04/2023 7:55 [...] Hospital : 1960 Age/S: 62 / M [address] [place] [address] Bl Unit #: [id number] Loc: [place] [address] Phys: Vee Horton Acct: [id number] Dis Date: Status: REG ER PHONE #: [phone] Exam Date: 01/04/2023 09 FAX #: [phone] Reason: GROSS HEMATURIA EXAMS: CPT CODE: [id number] CT ABD PELVIS W/CONT 30240 (Continued) at 2224 Reported and signed by: Zia Magaña M.D. CC: Lakhwinder Guillermo MD; Vee Horton; Javier Sullivan MD Technologist:Latoya Moeller, RT(R); Lesvia Humphries CTDI: DLP: Trnscb Date/Time: 01/04/2023 (2223) t.SDR.SI1 Orig Print D/T: S: 01/04/2023 (2226) PAGE 2 Signed ReportCOMPREHENSIVE METABOLIC [id number] 21:07:00* Test Item Value Reference Range Interpretation [...] ALKP) 60 IUnit/L 20-125 N CBC W/AUTO [id number] 20:38:00* Test Item Value Reference Range Interpretation [...] (test code = MDIFF) NO BASIC METABOLIC [id number] 08:30:00* Test Item Value Reference Range Interpretation [...] reported result: 4.9 mg/dLEdited by: KRISTEN on 10/31/22:054788 0829: CA previously reported as: 4.9 *L mg/dL Critical [place] [address]/16/22 Nurse read back result and tech confirmed it's correct? Y GLUCOSE [id number] 17:27:00* Test Item Value Reference Range Interpretation Comme nts GLUCOSE BEDSIDE (test code = GLUBED) 109 MG/DL 70-110 N Performed by teto tse at [facility] GLUCOSE [id number] 12:34:00* Test Item Value Reference Range Interpretation Comme nts GLUCOSE BEDSIDE (test code = GLUBED) 95 MG/DL 70-110 N Performed by cer tified concrete pipe making 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 at [facility] GLUCOSE [id number] 08:49:00* Test Item Value Reference Range Interpretation Comme nts GLUCOSE BEDSIDE (test code = GLUBED) 117 MG/DL 70-110 H Performed by cer tified concrete pipe making 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 at [facility] BASIC METABOLIC [id number] 07:57:00* Test Item Value Reference Range Interpretation [...] = CA) 8.1 mg/dL 8.0-10.5 N GLUCOSE [id number] 17:07:00* Test Item Value Reference Range Interpretation Comme nts GLUCOSE BEDSIDE (test code = GLUBED) 127 MG/DL 70-110 H Performed by cer tified concrete pipe making machine operator at [facility] GLUCOSE [id number] 12:26:00* Test Item Value Reference Range Interpretation Comme nts GLUCOSE BEDSIDE (test code = GLUBED) 123 MG/DL 70-110 H Performed by cer tified concrete pipe making machine operator at [facility] GLUCOSE [id number] 07:59:00* Test Item Value Reference Range Interpretation Comme nts GLUCOSE BEDSIDE (test code = GLUBED) 92 MG/DL 70-110 N Performed by cer violeta concrete pipe making machine operator at [facility] BASIC METABOLIC [id number] 07:38:00* Test Item Value Reference Range Interpretation [...] CA) 7.8 mg/dL 8.0-10.5 L CBC W/AUTO [id number] 07:27:00* Test Item Value Reference Range Interpretation [...] REQUIRED (test code = MDIFF) NO GLUCOSE [id number] 21:25:00* Test Item Value Reference Range Interpretation Comme nts GLUCOSE BEDSIDE (test code = GLUBED) 154 MG/DL 70-110 H Performed by cer tified concrete pipe making machine operator at [facility] GLUCOSE [id number] 17:43:00* Test Item Value Reference Range Interpretation Comme nts GLUCOSE BEDSIDE (test code = GLUBED) 73 MG/DL 70-110 N Performed by cer tified concrete pipe making machine operator at [facility] GLUCOSE [id number] 10:08:00* Test Item Value Reference Range Interpretation Comme nts GLUCOSE BEDSIDE (test code = GLUBED) 87 MG/DL 70-110 N Performed by cer tified concrete pipe making machine operator at [facility] GLUCOSE [id number] 20:12:00* Test Item Value Reference Range Interpretation Comme nts GLUCOSE BEDSIDE (test code = GLUBED) 139 MG/DL 70-110 H Performed by cer tified concrete pipe making machine operator at [facility] GLUCOSE [id number] 17:32:00* Test Item Value Reference Range Interpretation Comme nts GLUCOSE BEDSIDE (test code = GLUBED) 79 MG/DL 70-110 N Performed by cer tified concrete pipe making machine operator at [facility] GLUCOSE [id number] 12:14:00* Test Item Value Reference Range Interpretation Comme nts GLUCOSE BEDSIDE (test code = GLUBED) 98 MG/DL 70-110 N Performed by cer tified concrete pipe making machine operator at [facility] GLUCOSE [id number] 08:36:00* Test Item Value Reference Range Interpretation Comme nts GLUCOSE BEDSIDE (test code = GLUBED) 92 MG/DL 70-110 N Performed by cer tified concrete pipe making machine operator at [facility] BASIC METABOLIC [id number] 07:50:00* Test Item Value Reference Range Interpretation [...] code = CA) 7.6 mg/dL 8.0-10.5 L [id number] 07:50:00* Test Item Value Reference Range Interpretation Comme nts MAGNESIUM (test code = MAG) 1.53 mg/dL 1.80-2.40 L - CTA CHEST FOR [id number] 00:00:00 [facility] 1960 Sex: M Name: MATHEW CASTILLO [facility] : 1960 Age/S: 62 / M [address] [place] [address] Blvd Unit #: [id number] Loc: [place] [address] Phys: Sofia Cheng HIDE AND SKIN FLESHING MACHINE OPERATOR Acct: [id number] Dis Date:Status: ADM IN PHONE #: [phone] Exam Date: 10/23/2022 172 FAX #: [phone] Reason: ELEVATED D DIMER EXAMS: CPT CODE: [id number] [place] [address] PROCEDURE INFORMATION: Exam: CTA ChestWith Contrast Exam [...] 1 Signed Report (CONTINUED) Name: MATHEW CASTILLO [facility] : 1960 Age/S: 62 / M [address] [place] [address] Unit #: [id number] Loc: [place] [id number] Phys: Sofia Cheng HIDE AND SKIN FLESHING MACHINE OPERATOR Acct: [id number] Dis Date: Status: ADM IN PHONE #: [phone] Exam Date: 10/23/2022 1726 FAX #: [phone] Reason: ELEVATED D DIMER EXAMS: CPT CODE: [id number] [place] [address] (Continued) flexure compatible with colitis incompletely evaluated. [...] by: Hayden Rg M.D. CC: Sofia Cheng HIDE AND SKIN FLESHING MACHINE OPERATOR; Salinas Dukes MD Technologist:Latoya Pérez, RT(R)(CT); . CTDI: DLP: Trnscb Date/Time: 10/23/2022 (2012) tHILARIOR.JT18 Orig Print D/T: S: 10/23/2022 (2012) PAGE 2 Signed ReportGLUCOSE [id number] 20:23:00* Test Item Value Reference Range Interpretation Comme nts GLUCOSE BEDSIDE (test code = GLUBED) 123 MG/DL 70-110 H Performed by [facility] tified concrete pipe making machine operator at [facility] GLUCOSE [id number] 17:34:00* Test Item Value Reference Range Interpretation Comme nts GLUCOSE BEDSIDE (test code = GLUBED) 132 MG/DL 70-110 H Performed by [facility] tified concrete pipe making machine operator at [facility] GLUCOSE [id number] 11:57:00* Test Item Value Reference Range Interpretation Comme nts GLUCOSE BEDSIDE (test code = GLUBED) 118 MG/DL 70-110 H Performed by [facility] tified concrete pipe making machine operator at [facility] GLUCOSE [id number] 08:22:00* Test Item Value Reference Range Interpretation Comme nts GLUCOSE BEDSIDE (test code = GLUBED) 100 MG/DL 70-110 N Performed by [facility] SSEV concrete pipe making machine operator at [facility] BASIC METABOLIC [id number] 08:05:00* Test Item Value Reference Range Interpretation [...] code = CA) 7.8 mg/dL 8.0-10.5 L [id number] 08:05:00* Test Item Value Reference Range Interpretation Comme nts MAGNESIUM (test code = MAG) 1.72 mg/dL 1.80-2.40 L GLUCOSE [id number] 21:10:00* Test Item Value Reference Range Interpretation Comme nts GLUCOSE BEDSIDE (test code = GLUBED) 148 MG/DL 70-110 H Performed by cer tified concrete pipe making machine operator at [facility] GLUCOSE [id number] 17:29:00* Test Item Value Reference Range Interpretation Comme nts GLUCOSE BEDSIDE (test code = GLUBED) 102 MG/DL 70-110 N Performed by cer tified concrete pipe making machine operator at [facility] GLUCOSE [id number] 11:54:00* Test Item Value Reference Range Interpretation Comme nts GLUCOSE BEDSIDE (test code = GLUBED) 104 MG/DL 70-110 N Performed by [email or web address] concrete pipe making machine operator at [facility] CBC W/MANUAL [id number] 10:35:00* Test Item Value Reference Range Interpretation [...] (test code = PLTMORPH) LARGE PLATELETS GLUCOSE [id number] 07:57:00* Test Item Value Reference Range Interpretation Comme [facility] GLUCOSE BEDSIDE (test code = GLUBED) 95 MG/DL 70-110 N Performed by cer tified concrete pipe making machine operator at [facility] C REACTIVE [id number] 07:48:00* Test Item Value Reference Range Interpretation Comme [facility] C REACTIVE PROTEIN (test cod e = CRP) 36.0 mg/L <10.0 H BASIC METABOLIC [id number] 07:40:00* Test Item Value Reference Range Interpretation [...] code = CA) 7.3 mg/dL 8.0-10.5 L [id number] 07:40:00* Test Item Value Reference Range Interpretation Comme nts MAGNESIUM (test code = MAG) 1.50 mg/dL 1.80-2.40 L [id number] 07:04:00* Test Item Value Reference Range Interpretation Comme nts D-DIMER (test code = DDIMER) 5949 ng/mlFEU See_Comment HH Critical result called to Brigido RUIZLAB.JJ1 at 0701 10/21/22Nurse read back result and tech confirmed it's correct? YESTHROMBOSIS AND/OR PULMONARY EMBOLISM AND THE CLINICAL CUT- OFF VALUE FOR EXCLUSION (500 ng/mL FEU) OF THESE CONDITIONSIS VALIDATED BY THE DATA DELIVERABLES MANAGER OF THE METHOD. A NEGATIVE D-DIMER [...] this result as normal/abnormal. - DUP VEIN [id number] 00:00:00 [facility] MAT[facility]W [facility]STILLO : 1960 Sex: M Name: MATHEW CASTILLO [facility] Barrera Huang : 1960 Age/S: 62 / M [address] [place] [address] Unit #: [id number] Loc: [place] [address] Phys: Skip Jaffe MD Acct: [id number] Dis Date: Status: ADM IN PHONE #: [phone] Exam Date: 10/21/2022820 FAX #: [phone] Reason: R/o DVT EXAMS: CPT CODE: [id number] DUP VEIN ASAEL 99858 PROCEDURE INFORMATION: Exam: US Duplex Lower Extremity [...] MD; Salinas Paris MD Technologist: Yesica Baker [facility] Date/Time: 10/21/2022 (911) t.SDR.AB61 Orig Print D/T:S: 10/21/2022 (911) Probe: PAGE 1 Signed Report GLUCOSE [id number] 20:40:00* Test Item Value Reference Range Interpretation Comme nts GLUCOSE BEDSIDE (test code = GLUBED) 148 MG/DL 70-110 H Performed by cer tified concrete pipe making machine operator at [facility] GLUCOSE [id number] 16:46:00* Test Item Value Reference Range Interpretation Comme nts GLUCOSE BEDSIDE (test code = GLUBED) 118 MG/DL 70-110 H Performed by cer tified concrete pipe making machine operator at [facility] GLUCOSE [id number] 16:46:00* Test Item Value Reference Range Interpretation Comme nts GLUCOSE BEDSIDE (test code = GLUBED) 122 MG/DL 70-110 H Performed by cer tified concrete pipe making machine operator at [facility] TROP-I HIGH [id number] 15:04:00* Test Item Value Reference Range Interpretation Comme [facility] TROP-I HIGH SENSITIVITY (test code = TROPIHS) [...] URL. These results were obtained using Siemens A[employer]iS[employer] IM TnIHreagent. Results from different methodologies should not becompared to one another as quantitative results and URLs mayvary by method. BASIC METABOLIC [id number] 15:04:00* Test Item Value Reference Range Interpretation [...] CA) 7.1 mg/dL 8.0-10.5 L TROP-I HIGH [id number] 10:07:00* Test Item Value Reference Range Interpretation [...] URL. These results were obtained using Siemens ResponseTap (formerly [employer]Insight) IM TnIHreagent. Results from different methodologies should not becompared to one another as quantitative results and URLs mayvary by method. CBC W/AUTO [id number] 09:54:00* Test Item Value Reference Range Interpretation [...] (test code = MDIFF) NO TROP-I HIGH [id number] 09:24:00* Test Item Value Reference Range Interpretation [...] URL. These results were obtained using Siemens AtellNLP [employer] IM TnIHreagent. Results from different methodologies should not becompared to one another as quantitative results and URLs mayvary by method. GLUCOSE [id number] 08:49:00* Test Item Value Reference Range Interpretation Comme nts GLUCOSE BEDSIDE (test code = GLUBED) 102 MG/DL 70-110 N Performed by teto mcdaniel concrete pipe making machine operator at [facility] COMPREHENSIVE METABOLIC [id number] 02:08:00* Test Item Value Reference Range Interpretation [...] code = ALKP) 47 IUnit/L 20-125 N [id number] 02:08:00* Test Item Value Reference Range [facility]ation [facility] LIPASE (test code = LIP) 57 U/L 13-57 N PROTHROMBIN [id number] 02:05:00* Test Item Value Reference Range Interpretation [facility] PROTHROMBIN TIME PATIENT (test code = PTP) [...] Infarction (to prevent recurrent infarct). THROMBOPLASTIN TIME [id number] 02:05:00* Test Item Value Reference Range Interpretation [facility] THROMBOPLASTIN TIME PARTIAL (test code = PTT) 26.1 Seconds 25.0-39.5 N Therapeutic Rang e: 50.4 - 88.3 Seconds Effective 07/21/2018 LACTIC [id number] 01:59:00* Test Item Value Reference Range Interpretation [facility] LACTIC ACID (test code = LACT) 1.1 mmol/L 0.4-1.9 N CBC W/AUTO [id number] 01:51:00* Test Item Value Reference Range Interpretation [facility] WHITE BLOOD CELL (test code = WBC) [...] = MDIFF) NO - XR CHEST 1 [id number] 00:00:00 [facility] 1960 Sex: M FAX: Sofia Cheng NP [phone] [place]: St: [facility] FAX: Salinas Callahan Jacqui [phone] Name: ANNAMATHEW POST [facility] : 1960 Age/S: 62/M [address] [place] [address] Unit #: [id number] Loc: G.66[address] [place] [address] Phys: Sofia Cheng NP Acct: [id number] Dis Date: Status: ADM IN PHONE #: [phone] Exam Date: 10/20/2022106 FAX #: [phone] Reason: Sepsis EXAMS: CPT CODE: [id number] XR CHEST 1 V 84716 PROCEDURE INFORMATION: Exam: XR Chest Exam date [...] by: Reinaldo Jacobs M.D. CC: Sofia Cheng HIDE AND SKIN FLESHING MACHINE OPERATOR; Salinas Dukes MD Technologist: RT Nadeem(R) Trnscrd Date/Time/By: 10/20/2022 (213) : By: [id number] Orig Print D/T: S: 10/20/2022 (5) PAGE 1 Signed ReportGLUCOSE [id number] 21:00:00* Test Item Value Reference Range Interpretation Comme nts GLUCOSE BEDSIDE (test code = GLUBED) 135 MG/DL 70-110 H Performed by cer tified concrete pipe making machine operator at [facility] URINALYSIS [id number] 20:03:00* Test Item Value Reference Range Interpretation [...] MUCU) 1+ /LPF NONE SEEN UR SODIUM [id number] 20:03:00* Test Item Value Reference Range Interpretation Comme nts UR SODIUM RANDOM (test code = ALPHONSE) 102 MEQ/L The Reference Ra nge and Method Performance specificationshave not been established for this fluid. The test resultshould be correlated into the clinical context forinterpretation. UR PROTEIN [id number] 20:03:00* Test Item Value Reference Range Interpretation Comme nts UR PROTEIN RANDOM (test code = PROTU) 79 mg/dL UR CREATININE [id number] 20:03:00* Test Item Value Reference Range Interpretation Comme nts UR CREATININE RANDOM (test code = CREATU) 111.9 mg/dL The Reference Ra nge and Method Performance specificationshave not been established for this fluid. The test resultshould be correlated into the clinical context forinterpretation. UR OSMOLALITY [id number] 20:03:00* Test Item Value Reference Range Interpretation Comme nts UR OSMOLALITY RANDOM (test c ode = OSMOU) 575 MOS/KG 300-1000 UR OSMOLALITY [id number] 20:02:00* Test Item Value Reference Range Interpretation Comme nts UR OSMOLALITY RANDOM (test c ode = OSMOU) 575 MOS/KG 300-1000 N GLUCOSE [id number] 17:18:00* Test Item Value Reference Range Interpretation Comme nts GLUCOSE BEDSIDE (test code = GLUBED) 122 MG/DL 70-110 H Performed by cer tified concrete pipe making machine operator at [facility] GLUCOSE [id number] 12:48:00* Test Item Value Reference Range Interpretation Comme nts GLUCOSE BEDSIDE (test code = GLUBED) 109 MG/DL 70-110 N Performed by cer tified concrete pipe making machine operator at [facility] GLUCOSE [id number] 07:53:00* Test Item Value Reference Range Interpretation Comme nts GLUCOSE BEDSIDE (test code = GLUBED) 96 MG/DL 70-110 N Performed by [employer] tified concrete pipe making machine operator at [facility] BASIC METABOLIC [id number] 07:51:00* Test Item Value Reference Range Interpretation [...] code = CA) 7.5 mg/dL 8.0-10.5 L [id number] 07:51:00* Test Item Value Reference Range Interpretation Comme nts MAGNESIUM (test code = MAG) 1.65 mg/dL 1.80-2.40 L CBC W/AUTO [id number] 07:07:00* Test Item Value Reference Range Interpretation [...] (test c ode = MDIFF) NO GLUCOSE [id number] 20:44:00* Test Item Value Reference Range Interpretation Comme nts GLUCOSE BEDSIDE (test code = GLUBED) 116 MG/DL 70-110 H Performed by cer tified concrete pipe making machine operator at [facility] GLUCOSE [id number] 18:07:00* Test Item Value Reference Range Interpretation Comme nts GLUCOSE BEDSIDE (test code = GLUBED) 98 MG/DL 70-110 N Performed by cer tified concrete pipe making machine operator at [facility] GLUCOSE [id number] 12:23:00* Test Item Value Reference Range Interpretation Comme nts GLUCOSE BEDSIDE (test code = GLUBED) 135 MG/DL 70-110 H Performed by cer tified concrete pipe making machine operator at [facility] GLUCOSE [id number] 11:22:00* Test Item Value Reference Range Interpretation Comme nts GLUCOSE BEDSIDE (test code = GLUBED) 104 MG/DL 70-110 N Performed by [facility] tified concrete pipe making machine operator at [facility] BASIC METABOLIC [id number] 08:12:00* Test Item Value Reference Range Interpretation [...] code = CA) 7.4 mg/dL 8.0-10.5 L [id number] 08:12:00* Test Item Value Reference Range Interpretation Comme nts MAGNESIUM (test code = MAG) 1.48 mg/dL 1.80-2.40 L CBC W/AUTO [id number] 08:09:00* Test Item Value Reference Range Interpretation [...] (test c ode = MDIFF) NO GLUCOSE [id number] 05:56:00* Test Item Value Reference Range Interpretation Comme nts GLUCOSE BEDSIDE (test code = GLUBED) 104 MG/DL 70-110 N Performed by cer tified concrete pipe making machine operator at [facility] GLUCOSE [id number] 03:31:00* Test Item Value Reference Range Interpretation Comme nts GLUCOSE BEDSIDE (test code = GLUBED) 129 MG/DL 70-110 H Performed by cer tified concrete pipe making machine operator at [facility] GLUCOSE [id number] 12:50:00* Test Item Value Reference Range Interpretation Comme nts GLUCOSE BEDSIDE (test code = GLUBED) 177 MG/DL 70-110 H Performed by cer tified concrete pipe making machine operator at [facility] CBC W/AUTO [id number] 10:14:00* Test Item Value Reference Range Interpretation [...] 0.00 x10 3/uL 0.0-0.1 N VITAMIN D [id number] 08:19:00* Test Item Value Reference Range Interpretation Comme nts VITAMIN D 25-HYDROXY (test c ode = VITD25) 25.5 ng/mL 30-100 L Indication for Test: PTH DisorderCOMPREHENSIVE METABOLIC [id number] 08:14:00* Test Item Value Reference Range Interpretation [...] code = ALKP) 62 IUnit/L 20-125 N [id number] 08:14:00* Test Item Value Reference Range Interpretation Comme nts PHOSPHOROUS (test code = PHOS) 2.6 MG/DL 2.5-4.9 N [id number] 08:14:00* Test Item Value Reference Range Interpretation Comme nts MAGNESIUM (test code = MAG) 1.50 mg/dL 1.80-2.40 L GLUCOSE [id number] 07:40:00* Test Item Value Reference Range Interpretation Comme nts GLUCOSE BEDSIDE (test code = GLUBED) 105 MG/DL 70-110 N Performed by cer tified concrete pipe making machine operator at [facility] GLUCOSE [id number] 17:26:00* Test Item Value Reference Range Interpretation Comme [facility] GLUCOSE BEDSIDE (test code = GLUBED) 113 MG/DL 70-110 H Performed by cer violeta concrete pipe making machine operator at [facility] PROTHROMBIN [id number] 15:23:00* Test Item Value Reference Range Interpretation Comme [facility] PROTHROMBIN TIME PATIENT (test code = PTP) [...] (to prevent recurrent infarct). TSH REFLEX TO [id number] 14:32:00* Test Item Value Reference Range Interpretation Comme [facility] TSH REFLEX TO FT4 (test code = TSHREFLEX) 1.59 IU/mL 0.42-5.47 N [id number] 14:19:00* Test Item Value Reference Range Interpretation Comme [facility] HGBA1C% (test code = HGBA1C%) 5.5 %A1C 4.8-6.0 N [id number] 14:13:00* Test Item Value Reference Range Interpretation Comme [facility] MAGNESIUM (test code = MAG) 1.91 mg/dL 1.80-2.40 N COMPREHENSIVE METABOLIC [id number] 14:13:00* Test Item Value Reference Range Interpretation Comme [facility] SODIUM (test code = NA) 138 mEq/L [...] = ALKP) 62 IUnit/L 20-125 N GLUCOSE [id number] 12:54:00* Test Item Value Reference Range Interpretation Comme nts GLUCOSE BEDSIDE (test code = GLUBED) 102 MG/DL 70-110 N Performed by cer tified concrete pipe making machine operator at [facility] GLUCOSE [id number] 10:14:00* Test Item Value Reference Range Interpretation Comme nts GLUCOSE BEDSIDE (test code = GLUBED) 110 MG/DL 70-110 N Performed by [employer] concrete pipe making machine operator at [facility] CBC W/AUTO [id number] 05:58:00* Test Item Value Reference Range Interpretation [...] Notes Date/Time Note Provider Source 2023-02-14 02:12:00 [facility] ([facility]) Discharge Summary REPORT#:[id number] REPORT STATUS: Signed REPORT INITIALIZATION DATE:02/14/23 TIME: 211 PATIENT: MATHEW CASTILLO UNIT #: [id number] ROOM/BED: [id number] : 59 AGE: 62 SEX: M ATTEND: Salinas Alba MD ADM AUTHOR: Salinas Alba MD REPT SERVICE DT/TIME: 02/14/23211 * ALL edits or amendments must be made on the electronic/computer document * PCP PCP PCP: PCP: Lakhwinder Guillermo MD Discharge to: home General Information Date of admission: Observation Start Date: Date of admission: 01/21/23 Discharge date: 01/22/23 Admission diagnosis: 1. Acute kidney injury 2. Obstructive uropathy 3. Leukocytosis 4. BPH status post UroLift 5. HX OF BPH, Hypertension, Schizophrenia Discharge diagnosis: N13.30 UNSPECIFIED HYDRONEPHROSIS J98.11 ATELECTASIS N17.9 ACUTE KIDNEY FAILURE, UNSPECIFIED R33.8 OTHER RETENTION OF URINE D72.829 ELEVATED WHITE BLOOD CELL COUNT, UNSPECIFIED E83.39 OTHER DISORDERS OF PHOSPHORUS METABOLISM F20.9 SCHIZOPHRENIA, UNSPECIFIED E83.42 HYPOMAGNESEMIA I10 ESSENTIAL (PRIMARY) HYPERTENSION 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 N40.1 BENIGN PROSTATIC HYPERPLASIA WITH LOWER URINARY TRACT SYMP Hospital course: 62-year-old male with last medical history of, BPH-s/p UroLift 01/03/2023, schizophrenia was transferred from [facility] with acute kidney injury and urinary [...] a bolus of normal saline prior to arrival. Patient denied fever, chills, nausea, vomiting, chest pain, shortness of breath, or other associated symptoms. He reported his abdominal pain was better after the Black catheter was inserted. Patient was admitted for further evaluation and treatment. Urology consult was placed. Urology had seen the patient. For follow-up as outpatient on 01/30 and for nurse visit catheter removal and CIC teaching. The patient was hemodynamically stable and was discharged to home, follow-up with PCP. Discharge medications as per reconciliation list. Med Rec Med Rec Discharge meds: Stop taking the following medications: CIPROFLOXACIN (CIPROFLOXACIN) 500 MG TAB 500 MILLIGRAM ORAL TWICE DAILY. Qty = 14 Continue taking these medications: BENZTROPINE (BENZTROPINE) 0.5 MG TAB 1 MILLIGRAM ORAL DAILY. HALOPERIDOL (HALDOL) 10 MG TAB 10 MILLIGRAM ORAL TWICE DAILY. TAMSULOSIN ER (FLOMAX) 0.4 MG CAP.SR.24H TWICE DAILY. Objective VS/I O Last Documented: Result Date Time Pulse Ox 98 01/22 1610 B/P 114/64 01/22 1610 B/P Mean 80.9 01/22 1610 Temp 36.9 01/22 1610 Pulse 78 01/22 1610 Resp 16 01/22 1610 O2 Delivery Room air 01/22 516 PATIENT WEIGHT: Weight (lb): Weight (oz): Weight (kg): 70.909 Physical Examination: Constitutional: no acute distress Eyes: normal external eye, conjunctiva and sclera normal Ears, nose, mouth, throat: normocephalic, moist mucous membranes Respiratory: respirations unlabored on room air Gastrointestinal: soft, non-distended, non-tender Genitourinary: circumcised, normal phallus, bilateral descended testes, Black catheter in place patent and draining clear urine Musculoskeletal: no clubbing, cyanosis or edema Skin: no rashes Neurologic: no focal deficits Psychiatric: appropriate mood and affect Hematologic: no bruising Treatments Procedures Lab: Laboratory Tests: 01/21 518 Chemistry Sodium (134 - [...] (Auto) (14.0 - 32.0 %) 7.1 L [place] % (Auto) (4.8 - 9.0 %) 8.1 Eos % (Auto) (0.3 - 3.7 %) 0.4 Baso % (Auto) (0.0 - 2.0 %) 0.1 Neut # (Auto) (2.0 - 7.6 x10 3/uL) 9.37 H Lymph # (Auto) (1.0 - 3.8 x10 3/uL) 0.79 L [place] # (Auto) (0.1 - 0.8 x10 3/uL) [...] 3/uL) 0.[address] ABD PELVIS W/CONT 06467 EXAM: CT abdomen and pelvis with contrast [...] utilization of iterative reconstruction technique. Discharge Instructions PCP PCP: PCP: Lakhwinder Guillermo MD )( Discharge to: Home/Self Care Discharge Instructions Additional Discharge Routines: PCP Follow-Up, Pinball Machine Repairer Follow-Up )( Diet: Regular Follow-up Appointments PCP follow up: PCP: Lakhwinder Guillermo MD PCP follow up timeframe: In 5 days Attending Physician: Attending Physician: Salinas Alba MD Attending physician follow up timeframe: In 1-2 weeks Consulting provider 1: Provider 1: Dave He MD Specialty: Urology Consult follow up timeframe: In 1-[address] [place] [address] #[phone] END OF REPORT [facility] 2023-02-04 04:06:00 [facility] ([facility]) Discharge Summary REPORT#:[id number] REPORT STATUS: Signed REPORT INITIALIZATION DATE:02/04/23 TIME: 040 PATIENT: MATHEW CASTILLO UNIT #: [id number] ROOM/BED: [place] [id number] : 59 AGE: 62 SEX: M ATTEND: Salinas Alba MD ADM AUTHOR: Salinas Alba MD REPT SERVICE DT/TIME: 02/04/23 0406 * ALL edits or amendments must be made on the electronic/computer document * PCP PCP PCP: PCP: Lakhwinder Guillermo MD Discharge to: home General Information Date of admission: Observation Start Date: 01/05/23 Date of admission: 01/06/23 Discharge date: 01/11/23 Admission diagnosis: 1. Hematuria s/p bladder lift 2. Leukocytosis 3. sepsis/UTI LAB REPORTS ANAEROBIC BOTTLE: GRAM POSITIVE COCCI IN PAIRS AND CHAINS, aerobic bottle pending. 4. Cholelithiasis and mildly distended gallbladder. 5. HX OF BPH, Hypertension, Schizophrenia Discharge diagnosis: N39.0 URINARY TRACT INFECTION, SITE NOT SPECIFIED R78.81 BACTEREMIA R31.0 GROSS HEMATURIA B95.2 ENTEROCOCCUS THE CAUSE OF DISEASES CLASSIFIED ELSEWHERE F17.200 NICOTINE DEPENDENCE, UNSPECIFIED, UNCOMPLICATED F20.9 SCHIZOPHRENIA, UNSPECIFIED I10 ESSENTIAL (PRIMARY) HYPERTENSION 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 K80.20 CALCULUS OF GALLBLADDER W/O CHOLECYSTITIS W/O OBSTRUCTION K82.8 OTHER SPECIFIED DISEASES OF GALLBLADDER N40.1 BENIGN PROSTATIC HYPERPLASIA WITH LOWER URINARY TRACT SYMP Hospital course: 62-year-old male with last medical history of, BPH, s/p bladder lift yesterday by Dr. He transferred from [facility] for urology evaluation secondary to hematuria after bladder irrigation failed. Patient was seen and evaluated by Dr. 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 Last admitted to [facility] on 10/16/22 with urinary retention. Abnormal labs: WBC 16.7, lctic acid-2.9, ua with trace leukocyte estrace and wbc >50 CT abd/pelvis: 1. Prostatomegaly. Decompressed bladder with a Black in place. 2. No hydronephrosis. No enhancing renal masses. 3. Cholelithiasis and mildly distended gallbladder. 4. Moderate hiatal hernia. Patient was admitted for further evaluation and treatment. Urology consult was placed. 01/06 Vital signs within normal limits. Hematuria was improved. 01/07 Uro continued to follow the patient. Stopped CBI, cleared for discharge with Black. 01/08 Discharge planning: Home when medically cleared. 01/09 Patient remained stable The patient was on continuous telemetry, BP control, glycemic control, pain control, electrolyte control, DVT/GI prophylaxis. The patient was hemodynamically stable and was discharged home, follow-up with PCP. Discharge medications as per reconciliation list. Med Rec Med Rec Discharge meds: Continue taking these medications: BENZTROPINE (BENZTROPINE) 0.5 MG TAB 1 MILLIGRAM ORAL [...] = 60 Start taking the following new medications: CEPHALEXIN (KEFLEX) 500 MG CAP 500 MILLIGRAM ORAL EVERY 6 HOURS. Days = 7 Qty = 28 No Refills CIPROFLOXACIN (CIPROFLOXACIN) 500 MG TAB 500 MILLIGRAM ORAL TWICE DAILY. Qty = 14 No Refills Objective VS/I O Last Documented: Result Date Time Pulse Ox 100 01/11 1631 B/P 135/84 01/11 1631 B/P Mean 100.8 01/11 1631 O2 Delivery Room air 01/11 1631 Temp 36.5 01/11 1631 Pulse 74 01/11 1631 Resp 14 01/11 1631 PATIENT WEIGHT: Weight (lb): Weight (oz): Weight (kg): 70.909 General appearance: alert, awake Head/Eyes: atraumatic, clear cornea, EOMI, normocephalic, normal conjunctiva/ sclera, normal eyelids/periorb, PERRLA Neck: non-tender, no bruit/NL carotids, no JVD, normal thyroid, supple/no meningismus Cardiovascular: normal capillary refill, regular rate rhythm Respiratory: no distress, no tenderness Abdomen/GI: active bowel sounds, soft, non-tender, no guarding, no rebound, no distention, no mass/organomegaly, no pulsatile mass, no hernia, normal abdominal aorta Abdomen quadrants: LLQ normal bowel sounds, LUQ normal bowel sounds, RLQ normal bowel sounds, RUQ normal bowel sounds Genitourinary: urinary catheter, hematuria Extremities: moves all, no edema-all extremities, normal capillary refill, normal range of motion, normal sensory, normal motor function 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, oriented X 3 Skin: dry, intact, no gross abnormalities Psychiatry: no hallucinations, normal affect, normal judgment/insight, normal mood, not homicidal, not suicidal Treatments Procedures Lab: Laboratory Tests 01/09 549 Chemistry Sodium (134 - [...] % (Auto) (14.0 - 32.0 %) 20.8 [place] % (Auto) (4.8 - 9.0 %) 7.7 Eos % (Auto) (0.3 - 3.7 %) 8.1 H Baso % (Auto) (0.0 - 2.0 %) 0.7 Neut # (Auto) (2.0 - 7.6 x10 3/uL) 4.51 Lymph # (Auto) (1.0 - 3.8 x10 3/uL) 1.51 [place] # (Auto) (0.1 - 0.8 x10 3/uL) [...] 3/uL) 0.[address] ABD PELVIS W/CONT 71662 H 20 TIME OF STUDY: 01/04/2023 7:55 [...] gallbladder. 4. Moderate hiatal hernia. Discharge Instructions PCP PCP: PCP: Lakhwinder Guillermo MD )( Discharge to: Home/Self Care Discharge Instructions Additional Discharge Routines: PCP Follow-Up, Pinball Machine Repairer Follow-Up )( Diet: Cardiac Follow-up Appointments PCP follow up: PCP: Lakhwinder Guillermo MD PCP follow up timeframe: In 5 days Special instructions: CALL TO MAKE APPOINTMENT Consulting provider 1: Provider 1: Dave He MD Specialty: Urology Special instructions: CALL TO SCHEDULE APPOINTMENT at [facility] #:[phone] END OF REPORT [facility] 2023-01-27 18:31:00 [id number] [address] PATIENT NAME: MATHEW CASTILLO ADMIT DATE: 01/06/23 ACCOUNT NO: [id number] ROOM NO: G.C146 AGE: 62 REPORT TYPE: 360 - QUERY RESPONSE DOCUMENT SEX: M ADMITTING PHYSICIAN:Salinas Alba MD ATTENDING PHYSICIAN:Salinas Alba MD Provider Query QUERY TEXT: Condition General 360MD Query related questions should be directed to: [facility] Coding Query Helpline [Based on the below mentioned clinical indicators kindly clarify the condition being treated and evaluated (uti due to black catheter, uti not due to black catheter,uti due to urolift surgery , or other more appropriate diagnosis)?.] The patient's Clinical Indicators include: 62 yo male with HTN, BPH, chronic indwelling black cath, s/p bladder lift yesterday per Dr. He presents with gross hematuria associated with n/v. : ed physician record 01/04/2023 sepsis/UTI LAB REPORTS ANAEROBIC BOTTLE: GRAM POSITIVE COCCI IN PAIRS AND CHAINS, aerobic bottle pending.: H and P 01/05/2023 Status post UroLift surgery on January 03, [address] Reinaldo He : Infectious dis progress note 01/08/2023 Options provided: -- Respond - Create new note now -- Dismiss - Not applicable / Not valid -- Dismiss - Clinically unable to determine / Unknown -- Assign to another provider QUERY RESPONSE: uti-black Query created by: MADY PEREZ on 01/22/2023 2:50 AM at 1831 PATIENT NAME: MATHEW CASTILLO [facility] 2023-01-27 13:09:00 [id number] [address] PATIENT NAME: MATHEW CASTILLO ADMIT DATE: 01/06/23 ACCOUNT NO: [id number] ROOM NO: G.C146 AGE: 62 REPORT TYPE: 360 - QUERY RESPONSE DOCUMENT SEX: M ADMITTING PHYSICIAN:Salinas Alba MD ATTENDING PHYSICIAN:Salinas Alba MD Provider Query QUERY TEXT: Condition General 360MD Query related questions should be directed to: [facility] Coding Query Helpline [Based on your medical judgement and the clinical indicators listed below kindly specify the underlying cause of the patient's heamaturia(Hematuria due to bladder lift surgery, hematuria due to UTI, hematuria unspecified, or other more appropriate diagnosis)?.] The patient's Clinical Indicators include: 62-year-old male with last medical history of, BPH, s/p bladder lift yesterdayby Dr. He transferred from [facility] for urology evaluation secondary tohematuria after bladder irrigation failed Hematuria s/p bladder lift Leukocytosis : H and P 01/05/2023 sepsis/UTI LAB REPORTS ANAEROBIC BOTTLE: GRAM POSITIVE COCCI IN PAIRS AND CHAINS, aerobic bottle pending : H and P 01/05/2023 Options provided: -- Respond - Create new note now -- Dismiss - Not applicable / Not valid -- Dismiss - Clinically unable to determine / Unknown -- Assign to another provider QUERY RESPONSE: Hematuria due to bladder lift surgery Query created by: MADY PEREZ on 01/22/2023 2:55 AM at 1309 PATIENT NAME: MATHEW CASTILLO [facility] 2023-01-27 13:09:00 [id number] [place] [address] PATIENT NAME: MATHEW CASTILLO ADMIT DATE: 01/06/23 ACCOUNT NO: [id number] ROOM NO: [facility] AGE: 62 REPORT TYPE: 360 - QUERY RESPONSE DOCUMENT SEX: M ADMITTING PHYSICIAN:Salinas Alba MD ATTENDING PHYSICIAN:Salinas Alba MD Provider Query QUERY TEXT: Condition General 360MD Query related questions should be directed to: [facility] Coding Query Helpline [Based on your clinical judgement, can you please clarify if Sepsis was confirmed, Sepsis not confirmed, or other more appropriate diagnosis?.] The patient's Clinical Indicators include: sepsis/UTI LAB REPORTS ANAEROBIC BOTTLE: GRAM POSITIVE COCCI IN PAIRS AND CHAINS, aerobic bottle pending.: H and P 01/05/2023 Pulse Ox 99 01/04 1926 B/P 128/82 01/04 1926 B/P Mean 97 01/04 1926 O2 Delivery Room air 01/04 1926 Temp 37.4 01/04 1926 Pulse 102 01/04 1926 Resp 16 01/04 1926 Leukocytosis, UTI (urinary tract infection) WBC (4.5 - 11.0 x10 3/uL) 16.7 H : Ed physician record 01/04/2023 His urine culture has shown growth of Pseudomonas aeruginosa and 1 out of 2 blood culture has shown growth of Enterococcus faecalis.The Enterococcus faecalis growing in 1 blood culture, likely could be either contaminant or help desk representative of transient bacteremia: progress note 01/11/2023 Options provided: -- Respond - Create new note now -- Dismiss - Not applicable / Not valid -- Dismiss - Clinically unable to determine / Unknown -- Assign to another provider QUERY RESPONSE: sepsis was not confirmed, patient had localized infection Query created by: MADY PEREZ on 01/22/2023 3:09 AM at 1309 PATIENT NAME: MATHEW CASTILLO [facility] 2023-01-22 17:40:00 [facility] Internal Medicine Prog. Note REPORT#:[id number] REPORT STATUS: Signed REPORT INITIALIZATION DATE:01/22/23 TIME: 1739 PATIENT: MATHEW CASTILLO UNIT #: [id number] ROOM/BED: [place] [id number] : 59 AGE: 62 SEX: M ATTEND: Salinas Alba MD ADM AUTHOR: Sofia Cheng HIDE AND SKIN FLESHING MACHINE OPERATOR REPT SERVICE DT/TIME: 01/22/231739 * ALL edits or amendments must be made on the electronic/computer document * Objective General VS/I O: Vital Signs Date Temp Pulse Resp B/P B/P Mean Pulse Ox FiO2 01/21-01/22 36.6-37.0 78-88 14-20 109-137/64-82 80.9-100.0 95-98 Last [...] Weight (lb): Weight (oz): Weight (kg): 70.909 Medications: Active Meds + DC'd Last 24 [...] Sodium Chloride (SODIUM CHLORIDE 0.9%) 1,000 ML .[id number] IV Haloperidol (HALDOL) 10 MG BID PO Tamsulosin HCl (Flomax 0.4 mg) 0.4 MG BID PO Acetaminophen (TYLENOL) 650 MG Q4H PRN PRN PO (DC) Ondansetron HCl (ZOFRAN) 4 MG Q6H PRN PRN IV (DC) Sodium Chloride (SODIUM CHLORIDE 0.9%) 1,000 ML .Q10H IV (DC) Results Findings/Data: Laboratory Tests 01/22/23623: [Embedded Image Not Available] Laboratory Tests 01/23 624 Chemistry Sodium (134 - [...] (Auto) (14.0 - 32.0 %) 9.8 L [place] % (Auto) (4.8 - 9.0 %) 9.0 Eos % (Auto) (0.3 - 3.7 %) 5.7 H Baso % (Auto) (0.0 - 2.0 %) 0.4 Neut # (Auto) (2.0 - 7.6 x10 3/uL) 7.35 Lymph # (Auto) (1.0 - 3.8 x10 3/uL) 0.97 L [place] # (Auto) (0.1 - 0.8 x10 3/uL) [...] DNA Surveillance Screen - COMP NASAL Radiology data: Recent Impressions: CAT SCAN - CT ABD PELVIS W/CONT 01/22 1231 Report Impression - Status: SIGNED Entered: 01/22/2023 1304 IMPRESSION: 1. Moderate bilateral hydroureteronephrosis at the [...] technique. DLP: 264 mGy-cm CTDI: 212 mGy Impression By: Gurdeep Berumen M.D. Diagnosis, Assessment Plan Free Text DxA P Notes Free text DxA P notes: discharged see discharge summery at 2132 RPT #:[id number] END OF REPORT [facility] 2023-01-22 12:19:00 [facility] ([facility]) Nephrology Consultation Note REPORT#:[id number] REPORT STATUS: Signed REPORT INITIALIZATION DATE:01/22/23 TIME: 1219 PATIENT: MATHEW CASTILLO UNIT #: [id number] ROOM/BED: [place] [id number] : 59 AGE: 62 SEX: M ATTEND: Salinas Alba MD ADM AUTHOR: Carmen Kemp REPT SERVICE DT/TIME: 01/22/23 1219 * ALL edits or amendments must be made on the electronic/computer document * History of Present Illness Requesting clinician: Salinas Deshpande/MARLENA Black Reason for consult: CHANDRA Chief complaint: Urinary Retention PCP: PCP: Lakhwinder Guillermo MD HPI: is a pleasant 62 years old male who is well known to us from previous hospitalization. His PMH is significant for schizophrenia, HTN, BPH, current everyday smoker. The patient has h/o urinary retention and CHANDRA 2/2 obstructive uropathy. He had black placed in 10/2022 w/ outpatient Urology follow up. He had urolift on 01/03/23, then he presented earlier this month w/ hematuria which resolved w/ CBI. He was discharged home and voiding trial was attempted on 01/14/23 in Urology clinic however, he again developed urinary retention and presented to outside hospital w/ CHANDRA w/ Cr 5.6. A coude catheter was placed, the patient given empirc abx and transferred to [facility] yesterday for further evaluation and management. Initial VS at the ER [...] pain is much better. History - Adult longitudinal Past medical history: Reports: Hypertension, BPH, Schizophrenia. Additional surgical history: None reported Additional family history: Noncontributory Alcohol use: Denies EtOH use Drug use: Denies recreational drugs Smoking status for patients 13 years old or older: Never Smoker Medications: Home Medications: Medication Dose/Rte/Freq Days Qty Entered Last Max Daily Dose Reviewed BENZTROPINE 1 MG PO DAILY 10/16/22 01/21/23 Strength: 0.5 MG TAB 0923 1114 HALOPERIDOL (HALDOL) 10 MG PO BID 10/16/22 01/21/23 Strength: 10 MG TAB 0925 1114 TAMSULOSIN ER (FLOMAX) 01/21/23 01/21/23 Strength: 0.4 MG CAP.SR.24H 1114 1114 Current Hospital Medications: Autonomic Drugs Sig/Mark Start time Last Medication Dose Route Stop Time Status Admin Benztropine Mesylate 1 MG DAILY 01/22 0900 AC 01/22 (COGENTIN) PO 04/22 0859 09 Tamsulosin HCl 0.4 MG BID 01/21 2100 AC 01/22 (Flomax 0.4 mg) PO 04/21 2058 09 Cardiovascular Drugs Sig/Mark Start time Last Medication Dose Route Stop Time Status Admin Hydralazine HCl 10 MG Q6H PRN PRN 01/21 233 AC (APRESOLINE) IV 04/21 232 Central Nervous System Agents Sig/Mark Start time Last Medication Dose Route Stop Time Status Admin Acetaminophen 650 MG Q4H PRN PRN 01/21 233 AC (TYLENOL) PO 04/21 2328 Hydrocodone Bitart/ 1 TAB Q6H PRN PRN 01/21 2330 AC Acetaminophen PO 01/26 2329 (NORCO 7.5/325 TABLET) Haloperidol 10 MG BID 01/21 2100 AC 01/22 (HALDOL) PO 04/21 Acetaminophen 650 MG Q4H PRN PRN 01/21 0645 DC (TYLENOL) PO 01/22 0533 Diagnostic Agents Sig/Mark Start time Last Medication Dose Route Stop Time Status Admin Iopamidol 100 ML .STK-MED ONE 01/22 1234 DC 01/22 (ISOVUE-300 100ML) IV 01/22 1235 1234 Electrolytic, Caloric, And Scott Sig/Mark Start time Last Medication Dose Route Stop Time Status Admin Sodium Chloride 1,000 ML .[id number] 01/21 2330 AC 01/22 (SODIUM CHLORIDE IV 04/21 2328 1359 0.9%) Sodium Chloride 1,000 ML .Q10H 01/21 0645 DC 01/21 (SODIUM CHLORIDE IV 01/22 0533 1651 0.9%) Gastrointestinal Drugs Sig/Mark Start time Last Medication Dose Route Stop Time Status Admin Docusate Sodium 100 MG BID PRN PRN 01/21 233 AC (COLACE) PO 04/21 2328 Ondansetron HCl 4 MG Q4H PRN PRN 01/21 2330 AC (ZOFRAN) IV 04/21 2328 Ondansetron HCl 4 MG Q6H PRN PRN 01/21 0645 DC (ZOFRAN) IV 01/22 0533 Allergies: Coded Allergies: No Known Allergies (10/16/22) [...] Weight (lb): Weight (oz): Weight (kg): 70.909 Medications: Active Meds + DC'd Last 24 [...] Sodium Chloride (SODIUM CHLORIDE 0.9%) 1,000 ML .[id number] IV Haloperidol (HALDOL) 10 MG BID PO Tamsulosin HCl (Flomax 0.4 mg) 0.4 MG BID PO Acetaminophen (TYLENOL) 650 MG Q4H PRN PRN PO (DC) Ondansetron HCl (ZOFRAN) 4 MG Q6H PRN PRN IV (DC) Sodium Chloride (SODIUM CHLORIDE 0.9%) 1,000 ML .Q10H IV (DC) Physical Exam General appearance: alert, awake, oriented, no acute distress Head/eyes: atraumatic, clear cornea, normal conjunctiva/sclera, normocephalic ENT: normal nose Neck: supple/no meningismus Cardiovascular: normal heart sounds Respiratory: aerating well, clear to auscultation, no distress Abdomen: non-tender, soft, no rebound Genitourinary: urinary catheter, urine Extremities: no edema Results Findings/Data: Laboratory Tests 01/23 624 Chemistry Sodium (134 - [...] (Auto) (14.0 - 32.0 %) 9.8 L [place] % (Auto) (4.8 - 9.0 %) 9.0 Eos % (Auto) (0.3 - 3.7 %) 5.7 H Baso % (Auto) (0.0 - 2.0 %) 0.4 Neut # (Auto) (2.0 - 7.6 x10 3/uL) 7.35 Lymph # (Auto) (1.0 - 3.8 x10 3/uL) 0.97 L [place] # (Auto) (0.1 - 0.8 x10 3/uL) [...] DNA Surveillance Screen - COMP NASAL Radiology data: Recent Impressions: CAT SCAN - CT ABD PELVIS W/CONT 01/22 1231 Report Impression - Status: SIGNED Entered: 01/22/2023 1304 IMPRESSION: 1. Moderate bilateral hydroureteronephrosis at the [...] technique. DLP: 264 mGy-cm CTDI: 212 mGy Impression By: Gurdeep - John Berumen M.D. Diagnosis, Assessment Plan Free Text DxA P Notes Free text DxA P notes: Assessment and Plan: CHANDRA (Resolved) -Renal function improved and wnl, s/p urinary catheter placement for obstructive urpathy. Cr was 5.6 at outside hospital. On IVF, NS. Received contrast on . -Monitor for post-obstructive diuresis. -CTAP w/ contrast (01/22/23): [...] hiatal hernia, and moderate to marked prostatomegaly. -Avoid nephrotoxicity monitor renal function and UOP Hypomagnesmeia/Hypophosphatemia -Replace Mg, monitor. Urinary Retention/BPH -Urinary catheter to gravity, Urology following, on Tamsulosin -S/p Urolift on 01/03/23 per Urology. HTN -BP acceptable, monitor, on PRN IV hydralazine Schizophrenia -Home medications resumed Further recommendations based on the clinical course of the patient. I would like to thank and Sofia for the consult and involving us in the care of this patient. Discussed the plan with the patient, patient's nurse, and . at 1923 at 1933 RPT #:[id number] END OF REPORT [facility] 2023-01-21 19:40:00 [facility] ([facility]) Urology Consult Note REPORT#:[id number] REPORT STATUS: Signed REPORT INITIALIZATION DATE:01/21/23 TIME: 1939 PATIENT: MATHEW CASTILLO UNIT #: [id number] ROOM/BED: [facility]-1 : 59 AGE: 62 SEX: M ATTEND: Salinas Alba MD ADM AUTHOR: Crystal Alberts MD REPT SERVICE DT/TIME: 01/21/231939 * ALL edits or amendments must be made on the electronic/computer document * History of Present Illness HPI Requesting clinician: Dr. Fernanda Dukes Reason for consult: Urinary retention Chief complaint: urinary retention HPI: Mathew Castillo is a 2-year-old male with hypertension, schizophrenia, BPH with urinary retention who follows with Dr. He and is s/p UroLift 2022. Patient had readmission earlier this month for hematuria after UroLift however this resolved with conservative measures. He was discharged and then had recent voiding trial 01/14/23 in clinic however send have urinary retention at outside hospital and was transferred to [place] with acute renal failure and urinary retention. Outside labs showed creatinine of 5.6, GFR 11. They were able to place a catheter at the outside hospital and his creatinine currently is 2.6 GFR 27. Patient feels overall well he has a [address] that is patent and draining clear urine. History Past medical history: Reports: Hypertension, BPH, Schizophrenia. Additional surgical history: None reported Additional family history: Noncontributory Alcohol use: Denies EtOH use Drug use: Denies recreational drugs Smoking status for patients 13 years old or older: Never Smoker Allergies: Coded Allergies: No Known Allergies (10/16/22) Review of Systems ROS Constitutional: Denies: chills, fatigue, generalized weakness. : Reports: urinary retention. Denies: dysuria, flank pain, frequency. Objective VS/I O: Last Documented: Result Date Time Pulse Ox 98 01/22 1628 B/P 117/73 01/22 1628 B/P Mean 87.3 01/22 1628 Temp 98.2 01/22 1628 Pulse 82 01/22 1628 Resp 16 01/21 162 O2 Delivery Room air 01/22 516 24 hour I O ending at 0700: 01/21 0700 01/20 1900 Intake Total Output Total Balance Patient 70.909 kg Weight Weight Stated/Reported Measurement Method PATIENT WEIGHT: Weight (lb): Weight (oz): Weight (kg): 70.909 Results Findings/Data: Laboratory Tests: 01/21 518 Chemistry Sodium (134 - [...] (Auto) (14.0 - 32.0 %) 7.1 L [place] % (Auto) (4.8 - 9.0 %) 8.1 Eos % (Auto) (0.3 - 3.7 %) 0.4 Baso % (Auto) (0.0 - 2.0 %) 0.1 Neut # (Auto) (2.0 - 7.6 x10 3/uL) 9.37 H Lymph # (Auto) (1.0 - 3.8 x10 3/uL) 0.79 L [place] # (Auto) (0.1 - 0.8 x10 3/uL) [...] 3/uL) 0.00 Results: labs reviewed, vital signs reviewed Free text obj notes: Physical Examination: Constitutional: no acute distress Eyes: normal external eye, conjunctiva and sclera normal Ears, nose, mouth, throat: normocephalic, moist mucous membranes Respiratory: respirations unlabored on room air Gastrointestinal: soft, non-distended, non-tender Genitourinary: circumcised, normal phallus, bilateral descended testes, Black catheter in place patent and draining clear urine Musculoskeletal: no clubbing, cyanosis or edema Skin: no rashes Neurologic: no focal deficits Psychiatric: appropriate mood and affect Hematologic: no bruising Diagnosis, Assessment Plan Diagnosis, Assessment Plan Free Text A P: This is a 62-year-old male with BPH and urinary retention s/p UroLift with persistent retention. He had voiding trial most recently 01/14/2023 however was found to have acute renal failure in outside hospital and was transferred to [place]. He has indwelling Black placed from the outside hospital that is patent and draining clear urine. Creatinine has down trended to 2.6 from 5.6. -Continue indwelling Black do not remove -Trend creatinine -Discussed patient to follow-up with our clinic 01/30/2023 for nurse visit catheter removal and CIC teaching for which he was amenable to trying Crystal Alberts MD -covering for Dr. He [facility] at 4868 RPT #:[id number] END OF REPORT [facility] 2023-01-21 10:48:00 [facility] ([facility]) History Physical - Adult REPORT#:[id number] REPORT STATUS: Signed REPORT INITIALIZATION DATE:01/21/23 TIME: 104 PATIENT: MATHEW CASTILLO UNIT #: [id number] ROOM/BED: 5507-1 : 59 AGE: 62 SEX: M ATTEND: Salinas Alba MD ADM AUTHOR: Sofia Cheng NP REPT SERVICE DT/TIME: 01/21/23 1048 * ALL edits or amendments must be made on the electronic/computer document * History of Present Illness HPI Chief complaint: Acute kidney injury Urinary retention HPI: 62-year-old male with last medical history of, BPH-s/p UroLift 01/03/2023, schizophrenia was transferred from [facility] with acute kidney injury and urinary [...] a bolus of normal saline prior to arrival. Patient denies fever, chills, nausea, vomiting, chest pain, shortness of breath, or other associated symptoms. He reports his abdominal pain is better after the Black catheter was inserted. Admission vital signs: Blood pressure 157/69, pulse 94, respirations 16, temperature 36.8, O2 sat 97% on room air. 01/21/23 0518: [Embedded Image Not Available] History Past medical history: Reports: Hypertension, BPH, Schizophrenia. Additional surgical history: None reported Additional family history: Noncontributory Alcohol use: Denies EtOH use Drug use: Denies recreational drugs Smoking status for patients 13 years old or older: Never Smoker Medication/Allergy-Vaccine Hx Allergies: Coded Allergies: No Known Allergies (10/16/22) Review of Systems Constitutional: Denies: chills, fever. ENT: Denies: earache, nasal congestion, sore throat. Respiratory: Denies: hemoptysis, parox nocturnal dyspnea, pleurisy, pleuritic pain, pneumonia , SOB, wheezing. Cardiovascular: Denies: chest pain, palpitations. GI: Reports: abdominal pain, nausea. Denies: vomiting. : Reports: urinary retention. Denies: flank pain, frequency, hematuria. Musculoskeletal: Arthritis: Denies: left upper, left lower, right upper, right lower. Neuro: Denies: change in LOC, confusion, dizziness, focal weakness, gait problem, headache, lightheaded, numbness, seizure, slurred speech, spinning sensation, syncope, unable to speak, vision change. Psych: Reports: anxiety. Physical Exam VS/I O Vital Signs: Date [...] (oz): Weight (kg): 70.909 General appearance: alert, awake Head/Eyes: atraumatic, clear cornea, EOMI, normocephalic, normal conjunctiva/ sclera, normal eyelids/periorb, PERRLA Cardiovascular: regular rate rhythm Respiratory: clear to auscultation, no distress, no tenderness Abdomen/GI: active bowel sounds, soft Abdomen quadrants: LLQ normal bowel sounds, LLQ tenderness, LUQ normal bowel sounds, RLQ normal bowel sounds, RLQ tenderness, RUQ normal bowel sounds Genitourinary: urinary catheter Extremities: moves all, no edema-all extremities, normal capillary refill, normal range of motion, normal sensory, normal motor function 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, oriented X 3 Skin: dry, intact, no gross abnormalities Psychiatry: no hallucinations, normal affect, normal judgment/insight, normal mood, not homicidal, not suicidal Results Findings/Data: Laboratory Tests: 01/21 518 Chemistry Sodium (134 - [...] (Auto) (14.0 - 32.0 %) 7.1 L [place] % (Auto) (4.8 - 9.0 %) 8.1 Eos % (Auto) (0.3 - 3.7 %) 0.4 Baso % (Auto) (0.0 - 2.0 %) 0.1 Neut # (Auto) (2.0 - 7.6 x10 3/uL) 9.37 H Lymph # (Auto) (1.0 - 3.8 x10 3/uL) 0.79 L [place] # (Auto) (0.1 - 0.8 x10 3/uL) [...] 0.1 x10 3/uL) 0.00 Free Text PE Notes Free Text PE Notes: General appearance: alert, awake Neck: non-tender, no bruit/NL carotids, no JVD, normal thyroid, supple/no meningismus Cardiovascular: regular rate rhythm Respiratory: no distress, no tenderness Abdomen/GI: active bowel sounds, soft, non-tender, no guarding, no rebound, no distention, no mass/organomegaly, no pulsatile mass, no hernia, normal abdominal aorta Abdomen quadrants: LLQ normal bowel sounds, LUQ normal bowel sounds, RLQ normal bowel sounds, RUQ normal bowel sounds Genitourinary: urinary catheter with normal color urine Extremities: moves all, no edema-all extremities, normal capillary refill, normal range of motion, normal sensory, normal motor function 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, oriented X 3 Skin: dry, intact, no gross abnormalities Psychiatry: Mild anxiety Diagnosis, Assessment Plan Free Text DxA P Notes Free Text DxA P Notes: Assessment: 62-year-old male with last medical history of, BPH-s/p UroLift 01/03/2023, schizophrenia was transferred from [facility] ER with acute kidney injury and [...] a bolus of normal saline prior to arrival. Patient denies fever, chills, nausea, vomiting, chest pain, shortness of breath, or other associated symptoms. He reports his abdominal pain is better after the Balck catheter was inserted. Admission vital signs: Blood pressure 157/69, pulse 94, respirations 16, temperature 36.8, O2 sat 97% on room air. 01/21/23 0518: [Embedded Image Not Available] 1. Acute kidney injury 2. Obstructive uropathy 3. Leukocytosis 4. BPH status post UroLift 5. HX OF BPH, Hypertension, Schizophrenia Plan of care: Admit patient for further evaluation and treatment Urology consultation in place Keep Black Pain control Prophylactic antibiotics continue with cefepime 1 g every 6 Monitor electrolytes and replace as needed Repeat labs Further recommendation based on patient's clinical course at 0300 at 1105 RPT #:[id number] END OF REPORT [facility] 2023-01-21 05:27:00 [facility] ([facility]) EMERGENCY PROVIDER REPORT REPORT#:[id number] REPORT STATUS: Signed DATE:01/21/23 TIME: 526 PATIENT: MATHEW CASTILLO UNIT #: [id number] ROOM/BED: 5507-1 AGE: 62 SEX: M PCP PHYS: Lakhwinder Guillermo MD SERVICE AUTHOR: Elizabeth Davenport APRNNP * ALL edits or amendments must be made on the electronic/computer document * Elizabeth Davenport 01/21/23526: HPI-General Illness Free Text HPI Notes Free Text HPI Notes 62-year-old male with PMH as listed below presents to the ER as a transfer from [facility] for diagnoses of ARF, urinary retention. Patient presented to the ER for evaluation of abdominal pain and urine retention that started 1 week ago after having his black catheter removed. A 14fr coude catheter was placed. Diagnostic w/u noted WBC of 14, creatinine 5.6, GFR 11, BUN 105. Pt was given cefepime 1 g at 00 37, Merrem 500 mg at 01 56 and 1 L normal saline bolus WASHROOM ATTENDANT upon arrival, patient notes improved but not completely resolved lower abdominal pain. He denies any additional symptoms such as recent fever, chest pain, shortness of breath, N/V/D/C, testicular pain or any other symptoms. General Initial Greet Date/Time 01/21/23513 PCP ilaina he, PCP, [facility] capped Mcaid Presentation Chief Complaint __ (urine retention) Hx Obtained From Patient Review of Systems ROS Statements All systems rev neg except as marked. Free Text ROS Notes Free Text ROS Notes Urine retention, abdominal pain Past Medical History - Adult Stated Complaint URINARY RETENTION Allergies Coded Allergies: No Known Allergies (10/16/22) Home Medications Discontinued Scripts CEPHALEXIN (KEFLEX) 500 MG PO Q6H 7 Days #28 CAPS Prov: 01/11/23 DC: 01/21/23 1111 Changed since prior admit CIPROFLOXACIN 500 MG PO BID CIPROFLOXACIN 500 MG PO BID #14 TABS Prov: 01/11/23 DC: 01/22/23 1357 Discontinued as per TAMSULOSIN ER (FLOMAX) 0.4 MG PO BID 6A 6P 30 Days #60 CAP Prov: 10/26/22 DC: 01/21/23 1111 Changed since prior admit DOCUSATE SODIUM (COLACE) 100 MG PO BID PRN PRN CONSTIPATION 30 Days #60 CAP Prov: 10/26/22 DC: 01/21/23 1111 Changed since prior admit Reported Medications BENZTROPINE 1 MG PO DAILY HALOPERIDOL (HALDOL) 10 MG PO BID TAMSULOSIN ER (FLOMAX) Discontinued Reported Medications BENZTROPINE 0.5 MG PO DAILY Past Medical History: Reports: Hypertension, BPH, Schizophrenia. Additional Surgical History None reported Additional Family History Noncontributory Alcohol Use Denies EtOH use Drug Use Denies recreational drugs Smoking status for patients 13 years old or older: Never Smoker Physical Exam Vital Signs Vital Signs First Documented: Result Date Time Pulse Ox 97 [...] Text PE Notes Free Text PE Notes Gen: Well appearing, appears comfortable, cooperative Head: Normocephalic Eyes: Keeps eyes closed during interaction Throat: Moist mucous membranes, handling secretions. Airway patent. Neck: FROM, supple Lungs: CTA all lobes. Respirations NL. No wheezing, No rhonchi, No dyspnea. No stridor or accessory muscle use. Heart/Chest: Regular rhythm, rate. No murmurs Abd: Soft, non-tender, non-distended, no rebound, guarding, or peritoneal sxs. No palpable masses or pulsatile masses. Negative [place] Sign. No TTP at [place] : Indwelling Black, straw-colored, non-cloudy urine, 600ml Ext: no obvious deformity. Neuro: awake and alert, speech NL for age, behavior age-appropriate. Skin: color NL, normal temperature, intact, no visible rashes Interpretation Diagnostics Lab Results Interpretation Results Laboratory Tests 01/21/23 0518: [Embedded Image Not Available] Laboratory Tests: 01/21 518 Chemistry Sodium (134 - [...] (Auto) (14.0 - 32.0 %) 7.1 L [place] % (Auto) (4.8 - 9.0 %) 8.1 Eos % (Auto) (0.3 - 3.7 %) 0.4 Baso % (Auto) (0.0 - 2.0 %) 0.1 Neut # (Auto) (2.0 - 7.6 x10 3/uL) 9.37 H Lymph # (Auto) (1.0 - 3.8 x10 3/uL) 0.79 L [place] # (Auto) (0.1 - 0.8 x10 3/uL) [...] (0.0 - 0.1 x10 3/uL) 0.00 Lab Statement Laboratory studies reviewed and considered in the medical decision-making. Point of Care Testing Pulse Oximetry Pulse Ox % 97 On: Room air Interpretation Interpreted by me, Pulse oximetry normal Time 0557 Re-Evaluation MDM Free Text MDM Notes Free Text MDM Notes Patient presenting with above clinical history and PE findings. I reviewed transfer EHR documentation. I did not see written report of the CT imaging. Patient did arrive with a CD containing CT imaging which was provided for our radiology department to upload. Review of current labs notes improved but persistent elevated creatinine, showing evidence of CHANDRA, as well as improved but persistent leukocytosis. The above findings are likely secondary to obstructive uropathy given the patient had complaint of urinary retention, requiring Black placement. Patient condition warrants admission, IV fluids, urology consultation and possibly nephrology consultation Additional Text [facility] capped Re-Evaluation/Progress #1 Text/Dict Note Patient remains awake, alert, and oriented. Skin color normal, respirations NL. I discussed results and need for admission. Patient verbalized understanding Time of Re-Eval 0620 Consultation Consultation Free Text Consult Notes Consulted with Dr. He at 637AM 01/21/2023. Text message sent Patient Discharge Departure Vital Signs/Condition Vital Signs First Documented: Result Date Time Pulse Ox 97 [...] air 01/22 516 Temp 36.8 01/22 516 All vital signs available at the time of this entry have been reviewed. Condition Guarded Clinical Impression Clinical Impression Primary Impression: CHANDRA (acute kidney injury) Secondary Impressions: Obstructive uropathy Disposition Decision Hospitalize Hosp Physician Name Salinas Alba MD Hosp Physician Hospitalist Request Time 622 Request Date 01/21/23 )( Accepts Hospitalization Yes )( Reason for Hospitalization CHANDRA )( Accepted Time 06 )( Accepted Date 01/21/23 Call Information will see patient Discharge/Care Plan Counseled Regarding Diagnosis, Lab results, Need for follow-up, When to return to ED Critical Care Time Spent (minutes): 31 Services Performed Patient management by me, Time spent at bedside, Reviewing test results, Reviewing imaging, Discussing patient care, Documentation in record Patient was critically ill due to: CHANDRA My treatment and management were: Serum labs, IV fluids, monitoring of creatinine, admission with urology consultation Natalio Coker 01/21/23 0702: HPI-General Illness General Confirmed Patient Yes Patient Type New patient Presentation Chief Complaint __ Hx Obtained From Patient, EMS, Prior medical records Sudden in Onset? No Onset Occurred One week ago Symptom Duration Since onset Progression since Onset Intermittent, Waxes and wanes, Gradually worsening Pain/Sev: Onset Mild Pain/Sev: Current Mild Past Medical History - Adult Review of Nursing Notes Rapid assess notes rev Physical Exam Vital Signs Review of Vital Signs Reviewed Interpretation Diagnostics Lab Results Interpretation Considerations Independ review imaging, Reviewed prior records Lab Statement Laboratory studies reviewed and considered in the medical decision-making. Point of Care Testing Pulse Oximetry Pulse Ox % 97 On: Room air Interpretation Interpreted by me, Pulse oximetry normal Time 0616 Re-Evaluation MDM ED Course Medication(s) Ordered Medication(s) Ordered: Central Nervous System Agents Sig/Mark Start time [...] IV 01/22 0533 Patient Discharge Departure Vital Signs/Condition Condition Guarded Supervising Physician Note MidLv/Doc Saw Pt 1 I have personally seen the patient and I evaluated the patient along with involvement of the PA/HIDE AND SKIN FLESHING MACHINE OPERATOR. I agree with the PA/tank cooper findings and plan. I have performed all aspects of MDM as documented including: evaluation of the patient/ patient's condition(s), review and analysis of available data, and determination of risk of patient management decisions. at 2244 at 1025 RPT #[id number] END OF REPORT [facility] 2023-01-15 09:31:00 [id number] [place] [address] PATIENT NAME: MATHEW CASTILLO ADMIT DATE: 01/06/23 ACCOUNT NO: [id number] ROOM NO: G.C146 AGE: 62 REPORT TYPE: 360 - QUERY RESPONSE DOCUMENT SEX: M ADMITTING PHYSICIAN:Salinas Alba MD ATTENDING PHYSICIAN:Salinas Alba MD Provider Query QUERY TEXT: Clarification Rule In Rule Out 360MD Query related questions should be directed to: [facility] Coding Query Help-line Based on your clinical judgment of the documented diagnosis of Rule out urinary tract infection in the Infectious Dis. Progress Note 01/06/2023, can you clarify if the diagnosis has been ruled in, ruled out, or if there is a more appropriate diagnosis? The patient's Clinical Indicators include: Rule out urinary tract infection - Infectious Dis. Progress Note 01/06/2023 urinary retention - Internal Medicine Prog. Note 01/10/2023 Recurrent fever and leukocytosis improved. Rule out urinary tract infection.Urinalysis however, shows no bacteriuria. Doubt any new nosocomial acquired infection. Continue empiric IV antibiotics for now. cefTRIAXone 2,000 mg Inj - MAR Options provided: -- Ruled In, Please specify the diagnosis. -- Ruled Out, Please specify the diagnosis. -- Other Specified diagnosis, Please specify the diagnosis. -- Other - I will add my own diagnosis -- Dismiss - Not applicable / Not valid -- Dismiss - Clinically unable to determine / Unknown -- Assign to another provider QUERY RESPONSE: The patient has the known or suspected diagnosis after study (ruled in). Query created by: Dion Mauro on 01/15/2023 6:06 AM at 0931 PATIENT NAME: MATHEW CASTILLO [facility] 2023-01-11 17:08:00 [id number] [place] [address] PATIENT NAME: MATHEW CASTILLO ADMIT DATE: 01/06/23 ACCOUNT NO: [id number] ROOM NO: G.C146 AGE: 62 REPORT TYPE: PROGRESS NOTE SEX: M ADMITTING PHYSICIAN:Salinas Alba MD ATTENDING PHYSICIAN:Salinas Alba MD DATE: 01/10/2023 SUBJECTIVE: The patient examined, chart reviewed, events of last 24 hours noted. The patient clinically is doing fairly well, resting in bed. Denies any new complaints. Remains afebrile. Still complains of some dysuria even though he has indwelling Black catheter in place. No further hematuria noted. Remains afebrile. CURRENT MEDICATIONS: Include benztropine, tamsulosin, haloperidol, Zosyn IV, Tylenol p.r.n., docusate sodium p.r.n., hydrocodone bitartrate p.r.n., hydralazine p.r.n., morphine sulfate p.r.n., and ondansetron p.r.n. PHYSICAL EXAMINATION: GENERAL: The patient is resting in bed. He is awake and alert. Does not appear to be toxic. Does not appear to be in any acute distress. VITAL SIGNS: Temperature maximum in last 24 hours is 37.0 degrees Celsius, blood pressure is 106/66, respirations are 17 per minute, and pulse is 86 per minute. The patient's weight is around 71 kg. HEENT: Head is atraumatic and normocephalic. Pupils are equal and reacting to light and accommodation bilaterally. Extraocular movements are intact. Oropharynx is clear. Oral hygiene is fair. NECK: Supple. JVD is absent. No carotid bruit, thyromegaly, or cervical lymphadenopathy. There is fair air entry bilaterally. CARDIOVASCULAR: S1, S2 audible. No murmur, gallop, S3 or S4 appreciated. ABDOMEN: Soft and full, nontender. No hepatosplenomegaly. No renal angle tenderness noted. Mild suprapubic tenderness noted. Bowel sounds are normoactive. EXTREMITIES: The patient has 3-way Black catheter in place and has very faint hematuria at the present time. EXTREMITIES: Both calves are soft. No calf tenderness. No pedal edema. Peripheral pulses are faintly palpable. LABORATORY DATA: No [...] PLAN: The patient with multiple comorbidities was initially admitted through Emergency Room with hematuria. The patient had undergone UroLift procedure, and subsequently, after he went home, he started to have ladan hematuria and he was admitted through Emergency Room to [facility] facility in [place], and from there, he was transferred to [facility]. The patient PATIENT NAME: MATHEW CASTILLO was evaluated by Urology Service. He was placed on broad-spectrum IV antibiotics. His urine culture has shown growth of Pseudomonas aeruginosa and 1 out of 2 blood culture has shown growth of Enterococcus faecalis. The Enterococcus faecalis growing in 1 blood culture, likely could be either contaminant or help desk representative of transient bacteremia. Clinically is doing fairly well. His urine culture has shown growth of Pseudomonas aeruginosa. For now, we will continue him on the present treatment, and once he is ready to be discharged home, we will switch him to oral ciprofloxacin. Discussed with the patient's nursing staff and with MARLENA Cheng. Dictated By: Skip Jaffe MD Date Dictated: 01/11/2023 17:08:17 Date Transcribed: 01/11/2023 18:52:55 ESTRADA/JORGE Receipt ID: [id number] Authenticated and Edited by Skip Jaffe MD On 01/22/23 5:19:12 AM at 0520 PATIENT NAME: MATHEW CASTILLO [facility] 2023-01-10 21:43:00 [facility] ([facility]) Internal Medicine Prog. Note REPORT#:[id number] REPORT STATUS: Signed REPORT INITIALIZATION DATE:01/10/23 TIME: 2142 PATIENT: MATHEW CASTILLO UNIT #: [id number] ROOM/BED: [place] [id number] : 59 AGE: 62 SEX: M ATTEND: Salinas Alba MD ADM AUTHOR: Sofia Cheng HIDE AND SKIN FLESHING MACHINE OPERATOR REPT SERVICE DT/TIME: 01/10/232142 * ALL edits or amendments must be made on the electronic/computer document * Subjective Chief complaint: Hematuria HPI: 62-year-old male with last medical history of, BPH, s/p bladder lift yesterday by Dr. He transferred from [place] for urology evaluation secondary to hematuria after bladder irrigation failed. pt was seen and evaluated by Dr. 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 Last admitted to [facility] on 10/16/22 with urinary retention. Abnormal labs: WBC 16.7, lctic acid-2.9, ua with trace leukocyte estrace and wbc >50 CT abd/pelvis 1. Prostatomegaly. Decompressed bladder with a Black in place. 2. No hydronephrosis. No enhancing renal masses. 3. Cholelithiasis and mildly distended gallbladder. 4. Moderate hiatal hernia. Review of Systems Additional notes: Constitutional: Denies: [...] insomnia, stress, suicidal ideation, visual hallucination. Objective General VS/I O: Vital Signs Date [...] Weight (lb): Weight (oz): Weight (kg): 70.909 Medications: Active Meds + DC'd Last 24 Hrs Benztropine Mesylate (COGENTIN) 1 MG DAILY PO Haloperidol [...] (SODIUM CHLORIDE 0.9% 100 ML) 100 ML Sodium Chloride (SODIUM CHLORIDE 0.9%) 1,000 ML .[id number] IV (DC) Sodium Chloride (SODIUM CHLORIDE 0.9%) 1,000 ML BOLUS IV Diagnosis, Assessment Plan Hospital course to date: General appearance: alert, awake Head/Eyes: atraumatic, clear cornea, EOMI, normocephalic, normal conjunctiva/ sclera, normal eyelids/periorb, PERRLA Neck: non-tender, no bruit/NL carotids, no JVD, normal thyroid, supple/no meningismus Cardiovascular: normal capillary refill, regular rate rhythm Respiratory: no distress, no tenderness Abdomen/GI: active bowel sounds, soft, non-tender, no guarding, no rebound, no distention, no mass/organomegaly, no pulsatile mass, no hernia, normal abdominal aorta Abdomen quadrants: LLQ normal bowel sounds, LUQ normal bowel sounds, RLQ normal bowel sounds, RUQ normal bowel sounds Genitourinary: urinary catheter, hematuria Extremities: moves all, no edema-all extremities, normal capillary refill, normal range of motion, normal sensory, normal motor function 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 He transferred from [place] for urology evaluation secondary to hematuria after bladder irrigation failed. pt was seen and evaluated by Dr. 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 Last admitted to [facility] on 10/16/22 with urinary retention. Abnormal labs: WBC 16.7, lctic acid-2.9, ua with trace leukocyte estrace and wbc >50 CT abd/pelvis: 1. Prostatomegaly. Decompressed bladder with a Black in place. 2. No hydronephrosis. No enhancing renal masses. 3. Cholelithiasis and mildly distended gallbladder. 4. Moderate hiatal hernia. 1. Hematuria s/p bladder lift 2. Leukocytosis 3. sepsis/UTI LAB REPORTS ANAEROBIC BOTTLE: GRAM POSITIVE COCCI IN PAIRS AND CHAINS, aerobic bottle pending. 4. Cholelithiasis and mildly distended gallbladder. 5. HX OF BPH, Hypertension, Schizophrenia Plan of care: Admit patient for further evaluation and treatment Urology consultation in place Keep Black with CBI Ceftriaxone 2 g daily ID consultation Follow-up with blood culture and urine culture I's and O's Replace electrolytes Repeat labs Further recommendation based on patient's clinical course 01/06/2023 Vital signs within normal limits Blood culture shows Enterococcus species Urine culture grows gram-negative teodoro-identification and sensitivity pending Hematuria is improved. Wean CBI as tolerated per uro Continue IV antibiotics Zosyn per ID, ceftriaxone is discontinued Started on Cogentin, still on tamsulosin. Monitor for further bleeding Pain medications as needed Follow-up cultures, labs, continue medications and supportive care 01/07/2023 Vital signs are stable Blood culture grows Enterococcus faecalis, urine culture grows Pseudomonas aeruginosa Continue IV antibiotics Zosyn, tamsulosin p.o., Cogentin Uro continues to follow the patient. Stop CBI, cleared for discharge with Black Discontinue telemetry monitoring Black care Fall precaution, follow-up labs, continue medications and present care 01/08/2023 Vital signs are stable Uro cleared the patient for discharge tomorrow with Black catheter Continue IV antibiotic Zosyn per ID Discharge planning: Home when medically cleared Follow-up labs, cultures, continue medications and present care 01/09/2023 Patient remained stable Hematuria is resolved For follow-up with uro as outpatient, cleared for discharge with Black. Consultants evaluations noted Still on IV antibiotic Zosyn, tamsulosin p.o. Fall precaution, pain medications as needed Continue medications and present care January 10, 2023: Hematuria had resolved Black to bedside drainage Seen and evaluated by urology Continues IV antibiotics Continue tamsulosin Fall precaution Continue with current medications Plan is to discharge patient home in a.m. and follow-up with urology outpatient at 0024 at 0814 RPT #:[id number] END OF REPORT [facility] 2023-01-10 20:39:00 [facility] ([facility]) Infectious Dis. Progress Note REPORT#:[id number] REPORT STATUS: Signed REPORT INITIALIZATION DATE:01/10/23 TIME: 2038 PATIENT: MATHEW CASTILLO UNIT #: [id number] ROOM/BED: [place] [id number] : 59 AGE: 62 SEX: M ATTEND: Salinas Alba MD ADM AUTHOR: Skip Jaffe MD REPT SERVICE DT/TIME: 01/10/232038 * ALL edits or amendments must be made on the electronic/computer document * Subjective Internal record Patient examined, [...] on January 03, [address] Reinaldo He. Recurrent fever and leukocytosis improved. Rule out [...] 2023 are negative so far at 24 hours of incubation.. In view of the enterococcal bacteremia and Pseudomonas aeruginosa the associated urinary tract infection we will continue the patient on IV Zosyn. If repeat blood cultures remain negative then we will consider discharging him home on oral ciprofloxacin. at 0244 [facility] #:[id number] END OF REPORT [facility] 2023-01-10 08:39:00 [phone] [place] [id number] PATIENT NAME: MATHEW CASTILLO ADMIT DATE: 01/06/23 ACCOUNT NO: [id number] ROOM NO: [facility] AGE: 62 REPORT TYPE: PROGRESS NOTE SEX: M ADMITTING PHYSICIAN:Salinas Alba MD ATTENDING PHYSICIAN:Salinas Alba MD DATE: 01/09/2023 SUBJECTIVE: The patient was examined, chart reviewed, events of last 24 hours noted. The patient clinically is doing fairly well, remains awake and alert, resting comfortably in bed. Denies any new complaints. Remains afebrile. No nausea, vomiting reported. No diarrhea reported. The patient denies any pain in his abdomen or flanks, however, still complains of dysuria even though he has a Black catheter in place. CURRENT MEDICATIONS: Include benztropine, tamsulosin, haloperidol, Zosyn IV, Tylenol p.r.n., docusate sodium p.r.n., hydrocodone bitartrate p.r.n., hydralazine p.r.n., morphine sulfate p.r.n., and ondansetron p.r.n. PHYSICAL EXAMINATION: GENERAL: The patient is resting in bed. He is awake and alert. Does not appear to be toxic. Does not appear to be in any acute distress. VITAL SIGNS: Temperature maximum in last 24 hours is 37.0 degrees Celsius, blood pressure is 106/66, respirations are 17 per minute, and pulse is 86 per minute. The patient's weight is around 71 kg. HEENT: Head is atraumatic and normocephalic. Pupils are equal and reacting to light and accommodation bilaterally. Extraocular movements are intact. Oropharynx is clear. Oral hygiene is fair. NECK: Supple. JVD is absent. No carotid bruit, thyromegaly, or cervical lymphadenopathy. There is fair air entry bilaterally. CARDIOVASCULAR: S1, S2 audible. No murmur, gallop, S3 or S4 appreciated. ABDOMEN: Soft and full, nontender. No hepatosplenomegaly. No renal angle tenderness noted. Mild suprapubic tenderness noted. Bowel sounds are normoactive. EXTREMITIES: The patient has 3-way Black catheter in place and has very faint hematuria at the present time. EXTREMITIES: Both calves are soft. No calf tenderness. No pedal edema. Peripheral pulses are faintly palpable. LABORATORY DATA: WBC is stable around 7000 with hemoglobin of 10, hematocrit of 33, platelet count is 283. Serum sodium is 139, potassium 4.2, chloride 105, bicarbonate 27, glucose 106, BUN 12, creatinine 1.0, estimated GFR is 85, calcium is 8.6. One out of two blood cultures done on admission had shown growth of Enterococcus faecalis while the other blood culture is negative after 5 days of incubation. Repeat blood cultures x2 done yesterday are incubating, but negative so far. ASSESSMENT AND PLAN: The patient with multiple medical problems including history of bladder outlet obstruction, previous history of hospitalization with PATIENT NAME: MATHEW CASTILLO acute urinary retention requiring indwelling Black catheter placement, he had undergone UroLift surgery by Dr. He and subsequently was discharged; however, he was readmitted with ladan hematuria and he was started on bladder irrigation with 3-way Black catheter and his urine culture had shown growth of Pseudomonas aeruginosa. The patient's one out of two blood cultures done on admission had shown Enterococcus faecalis while the other one is negative after 5 days of incubation suggesting either contamination or transient enterococcal bacteremia. The patient had 2 repeat blood cultures done, which are so far showing no growth. Clinically, he is making progress on the present IV antibiotics. For now, we will keep him on the same and once if his repeat blood cultures remain negative and he clinically continues to show improvement, then we will consider switching him to oral ciprofloxacin on discharge. Discussed with MARLENA Cheng and with the patient's nursing staff. Dictated By: Skip Jaffe MD Date Dictated: 01/10/2023 08:39:27 Date Transcribed: 01/10/2023 09:42:11 ESTRADA/KYLE Receipt ID: [id number] Authenticated and Edited by Skip Jaffe MD On 01/22/23 5:19:04 AM at 0520 PATIENT NAME: MATHEW CASTILLO [facility] 2023-01-09 22:29:00 [facility]) Internal Medicine Prog. Note REPORT#:[id number] REPORT STATUS: Signed REPORT INITIALIZATION DATE:01/09/23 TIME: 2228 PATIENT: MATHEW CASTILLO UNIT #: [id number] ROOM/BED: [place] [address] : 59 AGE: 62 SEX: M ATTEND: Salinas Alba MD ADM AUTHOR: Sofia Cheng NP REPT SERVICE DT/TIME: 01/09/232228 * ALL edits or amendments must be made on the electronic/computer document * Subjective Chief complaint: Hematuria HPI: 62-year-old male with last medical history of, BPH, s/p bladder lift yesterday by Dr. He transferred from [place] for urology evaluation secondary to hematuria after bladder irrigation failed. pt was seen and evaluated by Dr. 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 Last admitted to [facility] on 10/16/22 with urinary retention. Abnormal labs: WBC 16.7, lctic acid-2.9, ua with trace leukocyte estrace and wbc >50 CT abd/pelvis 1. Prostatomegaly. Decompressed bladder with a Black in place. 2. No hydronephrosis. No enhancing renal masses. 3. Cholelithiasis and mildly distended gallbladder. 4. Moderate hiatal hernia. Review of Systems Additional notes: Constitutional: Denies: [...] insomnia, stress, suicidal ideation, visual hallucination. Objective General VS/I O: Vital Signs Date [...] Weight (lb): Weight (oz): Weight (kg): 70.909 Medications: Active Meds + DC'd Last 24 Hrs Benztropine Mesylate (COGENTIN) 1 MG DAILY PO Haloperidol [...] (SODIUM CHLORIDE 0.9% 100 ML) 100 ML Sodium Chloride (SODIUM CHLORIDE 0.9%) 1,000 ML .[id number] IV Sodium Chloride (SODIUM CHLORIDE 0.9%) 1,000 ML BOLUS IV Results Findings/Data: Laboratory Tests 01/09/2349: [Embedded Image Not Available] Laboratory Tests 01/09 549 Chemistry Sodium (134 - [...] % (Auto) (14.0 - 32.0 %) 20.8 [place] % (Auto) (4.8 - 9.0 %) 7.7 Eos % (Auto) (0.3 - 3.7 %) 8.1 H Baso % (Auto) (0.0 - 2.0 %) 0.7 Neut # (Auto) (2.0 - 7.6 x10 3/uL) 4.51 Lymph # (Auto) (1.0 - 3.8 x10 3/uL) 1.51 [place] # (Auto) (0.1 - 0.8 x10 3/uL) [...] 0.1 x10 3/uL) 0.00 Diagnosis, Assessment Plan Hospital course to date: General appearance: alert, awake Head/Eyes: atraumatic, clear cornea, EOMI, normocephalic, normal conjunctiva/ sclera, normal eyelids/periorb, PERRLA Neck: non-tender, no bruit/NL carotids, no JVD, normal thyroid, supple/no meningismus Cardiovascular: normal capillary refill, regular rate rhythm Respiratory: no distress, no tenderness Abdomen/GI: active bowel sounds, soft, non-tender, no guarding, no rebound, no distention, no mass/organomegaly, no pulsatile mass, no hernia, normal abdominal aorta Abdomen quadrants: LLQ normal bowel sounds, LUQ normal bowel sounds, RLQ normal bowel sounds, RUQ normal bowel sounds Genitourinary: urinary catheter, hematuria Extremities: moves all, no edema-all extremities, normal capillary refill, normal range of motion, normal sensory, normal motor function 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 He transferred from [place] for urology evaluation secondary to hematuria after bladder irrigation failed. pt was seen and evaluated by Dr. 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 Last admitted to [facility] on 10/16/22 with urinary retention. Abnormal labs: WBC 16.7, lctic acid-2.9, ua with trace leukocyte estrace and wbc >50 CT abd/pelvis: 1. Prostatomegaly. Decompressed bladder with a Black in place. 2. No hydronephrosis. No enhancing renal masses. 3. Cholelithiasis and mildly distended gallbladder. 4. Moderate hiatal hernia. 1. Hematuria s/p bladder lift 2. Leukocytosis 3. sepsis/UTI LAB REPORTS ANAEROBIC BOTTLE: GRAM POSITIVE COCCI IN PAIRS AND CHAINS, aerobic bottle pending. 4. Cholelithiasis and mildly distended gallbladder. 5. HX OF BPH, Hypertension, Schizophrenia Plan of care: Admit patient for further evaluation and treatment Urology consultation in place Keep Black with CBI Ceftriaxone 2 g daily ID consultation Follow-up with blood culture and urine culture I's and O's Replace electrolytes Repeat labs Further recommendation based on patient's clinical course 01/06/2023 Vital signs within normal limits Blood culture shows Enterococcus species Urine culture grows gram-negative teodoro-identification and sensitivity pending Hematuria is improved. Wean CBI as tolerated per uro Continue IV antibiotics Zosyn per ID, ceftriaxone is discontinued Started on Cogentin, still on tamsulosin. Monitor for further bleeding Pain medications as needed Follow-up cultures, labs, continue medications and supportive care 01/07/2023 Vital signs are stable Blood culture grows Enterococcus faecalis, urine culture grows Pseudomonas aeruginosa Continue IV antibiotics Zosyn, tamsulosin p.o., Cogentin Uro continues to follow the patient. Stop CBI, cleared for discharge with Black Discontinue telemetry monitoring Black care Fall precaution, follow-up labs, continue medications and present care 01/08/2023 Vital signs are stable Uro cleared the patient for discharge tomorrow with Black catheter Continue IV antibiotic Zosyn per ID Discharge planning: Home when medically cleared Follow-up labs, cultures, continue medications and present care 01/09/2023 Patient remained stable Hematuria is resolved For follow-up with uro as outpatient, cleared for discharge with Black. Consultants evaluations noted Still on IV antibiotic Zosyn, tamsulosin p.o. Fall precaution, pain medications as needed Continue medications and present care at 2359 at 1240 RPT #:[id number] END OF REPORT [facility] 2023-01-09 19:20:00 [facility] ([facility]) Infectious Dis. Progress Note REPORT#:[id number] REPORT STATUS: Signed REPORT INITIALIZATION DATE:01/09/23 TIME: 1919 PATIENT: MATHEW CASTILLO UNIT #: [id number] ROOM/BED: [facility]6-1 : 59 AGE: 62 SEX: M ATTEND: Salinas Alba MD ADM AUTHOR: Skip Jaffe MD REPT SERVICE DT/TIME: 01/09/231919 * ALL edits or amendments must be made on the electronic/computer document * Subjective Internal record Patient examined, [...] on January 03, [address] Reinaldo He. Recurrent fever and leukocytosis improved. Rule out [...] the enterococcal bacteremia and Pseudomonas aeruginosa the associated urinary tract infection we will continue the patient on IV Zosyn. If repeat blood cultures remain negative then we will consider discharging him home on oral ciprofloxacin. at 0432 RPT #:[id number] END OF REPORT [facility] 2023-01-09 18:36:00 [id number] [place] [address] PATIENT NAME: MATHEW CASTILLO ADMIT DATE: 01/06/23 ACCOUNT NO: [id number] ROOM NO: G.C146 AGE: 62 REPORT TYPE: PROGRESS NOTE SEX: M ADMITTING PHYSICIAN:Salinas Alba MD ATTENDING PHYSICIAN:Salinas Alba MD DATE: 01/08/2023 SUBJECTIVE: The patient examined. Chart reviewed. Events of last 24 hours noted. The patient clinically is not much changed. He remains awake and alert, resting comfortably in bed. Denies any new complaints. Remains afebrile. No nausea or vomiting reported. No diarrhea reported. Hematuria has significantly improved. Continues to have indwelling catheter. CURRENT MEDICATIONS: Include benztropine, tamsulosin, haloperidol, Zosyn IV, Tylenol p.r.n., docusate sodium p.r.n., hydrocodone bitartrate p.r.n., hydralazine p.r.n., morphine sulfate p.r.n., and ondansetron p.r.n. PHYSICAL EXAMINATION: GENERAL: The patient is resting in bed. He is awake and alert. Does not appear to be toxic. Does not appear to be in any acute distress. VITAL SIGNS: Temperature maximum in last 24 hours is 37.0 degrees Celsius, blood pressure is 106/66, respirations are 17 per minute, and pulse is 86 per minute. The patient's weight is around 71 kg. HEENT: Head is atraumatic and normocephalic. Pupils are equal and reacting to light and accommodation bilaterally. Extraocular movements are intact. Oropharynx is clear. Oral hygiene is fair. NECK: Supple. JVD is absent. No carotid bruit, thyromegaly, or cervical lymphadenopathy. There is fair air entry bilaterally. CARDIOVASCULAR: S1, S2 audible. No murmur, gallop, S3 or S4 appreciated. ABDOMEN: Soft and full, nontender. No hepatosplenomegaly. No renal angle tenderness noted. Mild suprapubic tenderness noted. Bowel sounds are normoactive. EXTREMITIES: The patient has 3-way Black catheter in place and has very faint hematuria at the present time. EXTREMITIES: Both calves are soft. No calf tenderness. No pedal edema. Peripheral pulses are faintly palpable. LABORATORY DATA: WBC today is stable around 7000 with hemoglobin of 10, hematocrit of 32, platelet count is 257,000. Serum sodium is 139, potassium 4.4, chloride 105, bicarbonate 28, glucose 91, BUN 9, creatinine 0.8, estimated GFR is 99. Calcium is 8.7. The urine culture had shown growth of Pseudomonas aeruginosa. His 1 out of 2 blood cultures done on admission had shown Enterococcus faecalis. The other blood culture so far is negative at 4 days of incubation. Two repeat blood cultures are in progress. ASSESSMENT AND PLAN: The patient with multiple comorbidities, was initially admitted through emergency room with ladan hematuria. The patient recently had UroLift procedure done and subsequently, he started to have hematuria and was PATIENT NAME: MATHEW CASTILLO admitted to [place], and from there, he was transferred to [facility] for urology followup. The patient was on admission, started on broad-spectrum IV antibiotics and he had prior stover cultures done. The patient's 1 out of 2 blood culture has shown growth of Enterococcus faecalis, which in this setting, likely could represent either contamination or transient bacteremia. The patient's second blood culture from the same set so far is showing no growth at 4 days of incubation. His urine culture, however, has shown growth of Pseudomonas aeruginosa. Currently, he is on IV Zosyn and repeat blood cultures are in progress. If the repeat blood cultures remain negative, then we will consider switching him to oral ciprofloxacin for discharge. Discussed with the patient's nursing staff. Dictated By: Skip Jaffe MD Date Dictated: 01/09/2023 18:36:08 Date Transcribed: 01/09/2023 20:19:12 /[facility] Receipt ID: [id number] Authenticated and Edited by Skip Jaffe MD On 01/22/23 5:18:55 AM at 0520 PATIENT NAME: MATHEW CASTILLO [facility] 2023-01-09 11:30:00 [facility] ([facility]) Urology Progress Note REPORT#:[id number] REPORT STATUS: Signed REPORT INITIALIZATION DATE:01/09/23 TIME: 113 PATIENT: MATHEW CASTILLO UNIT #: [id number] ROOM/BED: [place] [address] : 59 AGE: 62 SEX: M ATTEND: Salinas Alba MD ADM AUTHOR: Dave He MD REPT SERVICE DT/TIME: 01/09/23 1130 * ALL edits or amendments must be made on the electronic/computer document * Subjective HPI: Mathew Castillo is a 62 yo M history of hypertension, schizophrenia, BPH urinary retention who follows is status post UroLift 01/03/2023. Objective Physical Exam Genitourinary: Genitourinary: catheter in situ Diagnosis, Assessment Plan Free Text A P: 62 y/o male s/p urolift - hematuria resolved - discharge with black and f/u as planned in clinic at 1131 RPT #:[id number] END OF REPORT [facility] 2023-01-08 21:19:00 [facility] ([facility]) Internal Medicine Prog. Note REPORT#:[id number] REPORT STATUS: Signed REPORT INITIALIZATION DATE:01/08/23 TIME: 2118 PATIENT: MATHEW CASTILLO UNIT #: [id number] ROOM/BED: [place] [address] : 59 AGE: 62 SEX: M ATTEND: Salinas Alba MD ADM AUTHOR: Sofia Cheng HIDE AND SKIN FLESHING MACHINE OPERATOR REPT SERVICE DT/TIME: 01/08/232118 * ALL edits or amendments must be made on the electronic/computer document * Subjective Chief complaint: Hematuria HPI: 62-year-old male with last medical history of, BPH, s/p bladder lift yesterday by Dr. He transferred from [place] for urology evaluation secondary to hematuria after bladder irrigation failed. pt was seen and evaluated by Dr. 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 [facility] [facility]. Abnormal labs: WBC 16.7, lctic acid-2.9, ua with trace leukocyte estrace and wbc >50 CT abd/pelvis 1. Prostatomegaly. Decompressed bladder with a Black in place. 2. No hydronephrosis. No enhancing renal masses. 3. Cholelithiasis and mildly distended gallbladder. 4. Moderate hiatal hernia. Review of Systems Additional notes: Constitutional: Denies: [...] insomnia, stress, suicidal ideation, visual hallucination. Objective General VS/I O: Vital Signs Date [...] Weight (lb): Weight (oz): Weight (kg): 70.909 Medications: Active Meds + DC'd Last 24 Hrs Benztropine Mesylate (COGENTIN) 1 MG DAILY PO Haloperidol [...] (SODIUM CHLORIDE 0.9% 100 ML) 100 ML Sodium Chloride (SODIUM CHLORIDE 0.9%) 1,000 ML .[id number] IV Sodium Chloride (SODIUM CHLORIDE 0.9%) 1,000 ML BOLUS IV Results Findings/Data: Laboratory Tests 01/08/23324: [Embedded Image Not Available] Laboratory Tests 01/08 325 Chemistry Sodium (134 - [...] % (Auto) (14.0 - 32.0 %) 22.3 [place] % (Auto) (4.8 - 9.0 %) 6.9 Eos % (Auto) (0.3 - 3.7 %) 9.9 H Baso % (Auto) (0.0 - 2.0 %) 0.9 Neut # (Auto) (2.0 - 7.6 x10 3/uL) 3.89 Lymph # (Auto) (1.0 - 3.8 x10 3/uL) 1.46 [place] # (Auto) (0.1 - 0.8 x10 3/uL) [...] 0.1 x10 3/uL) 0.00 Diagnosis, Assessment Plan Hospital course to date: General appearance: alert, awake Head/Eyes: atraumatic, clear cornea, EOMI, normocephalic, normal conjunctiva/ sclera, normal eyelids/periorb, PERRLA Neck: non-tender, no bruit/NL carotids, no JVD, normal thyroid, supple/no meningismus Cardiovascular: normal capillary refill, regular rate rhythm Respiratory: no distress, no tenderness Abdomen/GI: active bowel sounds, soft, non-tender, no guarding, no rebound, no distention, no mass/organomegaly, no pulsatile mass, no hernia, normal abdominal aorta Abdomen quadrants: LLQ normal bowel sounds, LUQ normal bowel sounds, RLQ normal bowel sounds, RUQ normal bowel sounds Genitourinary: urinary catheter, hematuria Extremities: moves all, no edema-all extremities, normal capillary refill, normal range of motion, normal sensory, normal motor function 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 He transferred from [place] for urology evaluation secondary to hematuria after bladder irrigation failed. pt was seen and evaluated by Dr. 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 Last admitted to [facility] on 10/16/22 with urinary retention. Abnormal labs: WBC 16.7, lctic acid-2.9, ua with trace leukocyte estrace and wbc >50 CT abd/pelvis: 1. Prostatomegaly. Decompressed bladder with a Black in place. 2. No hydronephrosis. No enhancing renal masses. 3. Cholelithiasis and mildly distended gallbladder. 4. Moderate hiatal hernia. 1. Hematuria s/p bladder lift 2. Leukocytosis 3. sepsis/UTI LAB REPORTS ANAEROBIC BOTTLE: GRAM POSITIVE COCCI IN PAIRS AND CHAINS, aerobic bottle pending. 4. Cholelithiasis and mildly distended gallbladder. 5. HX OF BPH, Hypertension, Schizophrenia Plan of care: Admit patient for further evaluation and treatment Urology consultation in place Keep Black with CBI Ceftriaxone 2 g daily ID consultation Follow-up with blood culture and urine culture I's and O's Replace electrolytes Repeat labs Further recommendation based on patient's clinical course 01/06/2023 Vital signs within normal limits Blood culture shows Enterococcus species Urine culture grows gram-negative teodoro-identification and sensitivity pending Hematuria is improved. Wean CBI as tolerated per uro Continue IV antibiotics Zosyn per ID, ceftriaxone is discontinued Started on Cogentin, still on tamsulosin. Monitor for further bleeding Pain medications as needed Follow-up cultures, labs, continue medications and supportive care 01/07/2023 Vital signs are stable Blood culture grows Enterococcus faecalis, urine culture grows Pseudomonas aeruginosa Continue IV antibiotics Zosyn, tamsulosin p.o., Cogentin Uro continues to follow the patient. Stop CBI, cleared for discharge with Black Discontinue telemetry monitoring Black care Fall precaution, follow-up labs, continue medications and present care 01/08/2023 Vital signs are stable Uro cleared the patient for discharge tomorrow with Black catheter Continue IV antibiotic Zosyn per ID Discharge planning: Home when medically cleared Follow-up labs, cultures, continue medications and present care at 2357 at 9430 RPT #:[id number] END OF REPORT [facility] 2023-01-08 18:59:00 [facility] ([facility]) Infectious Dis. Progress Note REPORT#:[id number] REPORT STATUS: Signed REPORT INITIALIZATION DATE:01/08/23 TIME: 1858 PATIENT: MATHEW CASTILLO UNIT #: [id number] ROOM/BED: [facility]-1 : 59 AGE: 62 SEX: M ATTEND: Salinas Alba MD ADM AUTHOR: Skip Jaffe MD REPT SERVICE DT/TIME: 01/08/23 2126 * ALL edits or amendments must be made on the electronic/computer document * Subjective Internal record Patient examined, [...] on January 03, [address] Reinaldo He. Recurrent fever and leukocytosis improved. Rule out [...] the enterococcal bacteremia and Pseudomonas aeruginosa the associated urinary tract infection we will continue the patient on IV Zosyn. If repeat blood cultures remain negative then we will consider discharging him home on oral ciprofloxacin. at 0321 RPT #:[id number] END OF REPORT [facility] 2023-01-08 18:22:00 [id number] [facility] [place] [id number] PATIENT NAME: MATHEW CASTILLO ADMIT DATE: 01/06/23 ACCOUNT NO: [id number] ROOM NO: [facility] AGE: 62 REPORT TYPE: PROGRESS NOTE SEX: M ADMITTING PHYSICIAN:Salinas Alba MD ATTENDING PHYSICIAN:Salinas Alba MD DATE: 01/07/2023 SUBJECTIVE: The patient examined. Chart reviewed. Events of last 24 hours noted. The patient clinically is not much changed. He remains awake and alert, resting comfortably in bed. Denies any new complaints. Continues to have Black catheter in place with irrigation and his urine appears to be completely clean without any further hematuria. Remains afebrile. No nausea or vomiting reported. No diarrhea reported. CURRENT MEDICATIONS: Include benztropine, tamsulosin, haloperidol, Zosyn IV, Tylenol p.r.n., docusate sodium p.r.n., hydrocodone bitartrate p.r.n., hydralazine p.r.n., morphine sulfate p.r.n., and ondansetron p.r.n. PHYSICAL EXAMINATION: GENERAL: The patient is resting in bed. He is awake and alert. Does not appear to be toxic. Does not appear to be in any acute distress. VITAL SIGNS: Temperature maximum in last 24 hours is 37.0 degrees Celsius, blood pressure is 106/66, respirations are 17 per minute, and pulse is 86 per minute. The patient's weight is around 71 kg. HEENT: Head is atraumatic and normocephalic. Pupils are equal and reacting to light and accommodation bilaterally. Extraocular movements are intact. Oropharynx is clear. Oral hygiene is fair. NECK: Supple. JVD is absent. No carotid bruit, thyromegaly, or cervical lymphadenopathy. There is fair air entry bilaterally. CARDIOVASCULAR: S1, S2 audible. No murmur, gallop, S3 or S4 appreciated. ABDOMEN: Soft and full, nontender. No hepatosplenomegaly. No renal angle tenderness noted. Mild suprapubic tenderness noted. Bowel sounds are normoactive. EXTREMITIES: The patient has 3-way Black catheter in place and has very faint hematuria at the present time. EXTREMITIES: Both calves are soft. No calf tenderness. No pedal edema. Peripheral pulses are faintly palpable. the hematuria has resolved. LABORATORY DATA: WBC is stable around 6000 with hemoglobin of 9, hematocrit of 29, platelet count is 205,000. Serum sodium is 138, potassium 4.0, chloride 104, bicarbonate 26, glucose 91, BUN 14, creatinine 0.8, estimated GFR is 99. calcium is 7.8, blood culture 1 out of 2 has shown growth of Enterococcus faecalis, which is pansensitive. Another blood culture so far is negative at 72 hours of incubation. Urine culture has shown growth of Pseudomonas aeruginosa 10,000 to 50,000 colony forming units. Currently, the patient is on Zosyn IV. ASSESSMENT AND PLAN: The patient with multiple comorbidities, was initially admitted through emergency room with ladan hematuria. He recently had UroLift PATIENT NAME: MATHEW CASTILLO procedure done and subsequently was discharged on the same day. However, on the day of admission, the patient developed ladan hematuria and came to emergency room. The patient was started on IV antibiotics and he was evaluated by urology service and received bladder irrigation through a 3-way catheter. Clinically, he has started to show improvement in his condition and his hematuria has resolved. His one blood culture has shown growth of Enterococcus faecalis. The patient did have fever and leukocytosis on admission and urine culture has shown growth of Pseudomonas aeruginosa. Currently, he is on IV Zosyn and both organisms are covered by the same antibiotic. We will keep him on the same to complete a 10-day course of treatment. Discussed with the patient's nursing staff. Dictated By: Skip aJffe MD Date Dictated: 01/08/2023 18:22:31 Date Transcribed: 01/08/2023 19:55:35 /[facility] Receipt ID: [id number] Authenticated and Edited by Skip Jaffe MD On 01/22/23 5:18:46 AM at 0520 PATIENT NAME: MATHEW CASTILLO [facility] 2023-01-08 17:58:00 [facility] ([facility]) Urology Progress Note REPORT#:[id number] REPORT STATUS: Signed REPORT INITIALIZATION DATE:01/08/23 TIME: 1757 PATIENT: MATHEW CASTILLO UNIT #: [id number] ROOM/BED: [place] [address] : [birth year] AGE: 62 SEX: M ATTEND: Salinas Alba MD ADM AUTHOR: Dave He MD REPT SERVICE DT/TIME: 01/08/23 0594 * ALL edits or amendments must be made on the electronic/computer document * Subjective HPI: Mathew Castillo is a 62 yo M history of hypertension, schizophrenia, BPH urinary retention who follows is status post UroLift 01/03/2023. Objective General VS/I O: Last Documented: Result [...] (lb): Weight (oz): Weight (kg): 70.909 Physical Exam General appearance: alert, awake, oriented Genitourinary: Genitourinary: catheter in situ Results Findings/Data: Laboratory Tests: 01/08 032 Chemistry Sodium (134 - [...] % (Auto) (14.0 - 32.0 %) 22.3 [place] % (Auto) (4.8 - 9.0 %) 6.9 Eos % (Auto) (0.3 - 3.7 %) 9.9 H Baso % (Auto) (0.0 - 2.0 %) 0.9 Neut # (Auto) (2.0 - 7.6 x10 3/uL) 3.89 Lymph # (Auto) (1.0 - 3.8 x10 3/uL) 1.46 [place] # (Auto) (0.1 - 0.8 x10 3/uL) [...] 3/uL) 0.00 Diagnosis, Assessment Plan Free Text A P: 62 y/o male s/p urolift - hematuria is improved - discharge with black tomorrow at 1759 RPT #:[id number] END OF REPORT [facility] 2023-01-08 02:42:00 [facility] ([facility]) Infectious Dis. Progress Note REPORT#:[id number] REPORT STATUS: Signed REPORT INITIALIZATION DATE:01/08/23 TIME: 241 PATIENT: MATHEW CASTILLO UNIT #: [id number] ROOM/BED: [place] [address] : 59 AGE: 62 SEX: M ATTEND: Salinas Alba MD ADM AUTHOR: Skip Jaffe MD REPT SERVICE DT/TIME: 01/07/232129 * ALL edits or amendments must be made on the electronic/computer document * Subjective Internal record Patient examined, [...] on January 03, [address] Reinaldo He. Recurrent fever and leukocytosis improved. Rule out [...] the enterococcal bacteremia and Pseudomonas aeruginosa the associated urinary tract infection we will continue the patient on IV Zosyn. at 0353 RPT #:[id number] END OF REPORT [facility] 2023-01-07 21:05:00 [facility] ([facility]) Internal Medicine Prog. Note REPORT#:[id number] REPORT STATUS: Signed REPORT INITIALIZATION DATE:01/07/23 TIME: 2104 PATIENT: MATHEW CASTILLO UNIT #: [id number] ROOM/BED: [facility]-1 : 59 AGE: 62 SEX: M ATTEND: Salinas Alba MD ADM AUTHOR: Sofia Cheng NP REPT SERVICE DT/TIME: 01/07/232104 * ALL edits or amendments must be made on the electronic/computer document * Subjective Chief complaint: Hematuria HPI: 62-year-old male with last medical history of, BPH, s/p bladder lift yesterday by Dr. He transferred from [place] for urology evaluation secondary to hematuria after bladder irrigation failed. pt was seen and evaluated by Dr. 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 Last admitted to [facility] on 10/16/22 with urinary retention. Abnormal labs: WBC 16.7, lctic acid-2.9, ua with trace leukocyte estrace and wbc >50 CT abd/pelvis 1. Prostatomegaly. Decompressed bladder with a Black in place. 2. No hydronephrosis. No enhancing renal masses. 3. Cholelithiasis and mildly distended gallbladder. 4. Moderate hiatal hernia. Review of Systems Additional notes: Constitutional: Denies: [...] insomnia, stress, suicidal ideation, visual hallucination. Objective General VS/I O: Vital Signs Date [...] Weight (lb): Weight (oz): Weight (kg): 70.909 Medications: Active Meds + DC'd Last 24 Hrs Benztropine Mesylate (COGENTIN) 1 MG DAILY PO Haloperidol [...] (SODIUM CHLORIDE 0.9% 100 ML) 100 ML Sodium Chloride (SODIUM CHLORIDE 0.9%) 1,000 ML .[id number] IV Sodium Chloride (SODIUM CHLORIDE 0.9%) 1,000 ML BOLUS IV Results Findings/Data: Laboratory Tests 01/07/23356: [Embedded Image Not Available] 01/07/23355: [Embedded Image Not Available] Laboratory Tests 01/07 357 Chemistry Sodium (134 - [...] 7.8 L Laboratory Tests 01/07 0356 Hematology WBC (4.5 - 11.0 x10 3/uL) [...] % (Auto) (14.0 - 32.0 %) 21.2 [place] % (Auto) (4.8 - 9.0 %) 7.2 Eos % (Auto) (0.3 - 3.7 %) 10.4 H Baso % (Auto) (0.0 - 2.0 %) 0.8 Neut # (Auto) (2.0 - 7.6 x10 3/uL) 3.56 Lymph # (Auto) (1.0 - 3.8 x10 3/uL) 1.26 [place] # (Auto) (0.1 - 0.8 x10 3/uL) [...] 0.1 x10 3/uL) 0.00 Diagnosis, Assessment Plan Hospital course to date: General appearance: alert, awake Head/Eyes: atraumatic, clear cornea, EOMI, normocephalic, normal conjunctiva/ sclera, normal eyelids/periorb, PERRLA Neck: non-tender, no bruit/NL carotids, no JVD, normal thyroid, supple/no meningismus Cardiovascular: normal capillary refill, regular rate rhythm Respiratory: no distress, no tenderness Abdomen/GI: active bowel sounds, soft, non-tender, no guarding, no rebound, no distention, no mass/organomegaly, no pulsatile mass, no hernia, normal abdominal aorta Abdomen quadrants: LLQ normal bowel sounds, LUQ normal bowel sounds, RLQ normal bowel sounds, RUQ normal bowel sounds Genitourinary: urinary catheter, hematuria Extremities: moves all, no edema-all extremities, normal capillary refill, normal range of motion, normal sensory, normal motor function 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 He transferred from [place] for urology evaluation secondary to hematuria after bladder irrigation failed. pt was seen and evaluated by Dr. 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 Last admitted to [facility] on 10/16/22 with urinary retention. Abnormal labs: WBC 16.7, lctic acid-2.9, ua with trace leukocyte estrace and wbc >50 CT abd/pelvis: 1. Prostatomegaly. Decompressed bladder with a Black in place. 2. No hydronephrosis. No enhancing renal masses. 3. Cholelithiasis and mildly distended gallbladder. 4. Moderate hiatal hernia. 1. Hematuria s/p bladder lift 2. Leukocytosis 3. sepsis/UTI LAB REPORTS ANAEROBIC BOTTLE: GRAM POSITIVE COCCI IN PAIRS AND CHAINS, aerobic bottle pending. 4. Cholelithiasis and mildly distended gallbladder. 5. HX OF BPH, Hypertension, Schizophrenia Plan of care: Admit patient for further evaluation and treatment Urology consultation in place Keep Black with CBI Ceftriaxone 2 g daily ID consultation Follow-up with blood culture and urine culture I's and O's Replace electrolytes Repeat labs Further recommendation based on patient's clinical course 01/06/2023 Vital signs within normal limits Blood culture shows Enterococcus species Urine culture grows gram-negative teodoro-identification and sensitivity pending Hematuria is improved. Wean CBI as tolerated per uro Continue IV antibiotics Zosyn per ID, ceftriaxone is discontinued Started on Cogentin, still on tamsulosin. Monitor for further bleeding Pain medications as needed Follow-up cultures, labs, continue medications and supportive care 01/07/2023 Vital signs are stable Blood culture grows Enterococcus faecalis, urine culture grows Pseudomonas aeruginosa Continue IV antibiotics Zosyn, tamsulosin p.o., Cogentin Uro continues to follow the patient. Stop CBI, cleared for discharge with Black Discontinue telemetry monitoring Black care Fall precaution, follow-up labs, continue medications and present care at 2222 at 0742 RPT #:[id number] END OF REPORT [facility] 2023-01-07 16:17:00 [facility] ([facility]) Urology Progress Note REPORT#:[id number] REPORT STATUS: Signed REPORT INITIALIZATION DATE:01/07/23 TIME: 1616 PATIENT: MATHEW CASTILLO UNIT #: [id number] ROOM/BED: [place] [address] : 59 AGE: 62 SEX: M ATTEND: Salinas Alba MD ADM AUTHOR: Dave He MD REPT SERVICE DT/TIME: 01/07/231616 * ALL edits or amendments must be made on the electronic/computer document * Subjective HPI: Mathew Csatillo is a 62 yo M history of hypertension, schizophrenia, BPH urinary retention who follows with Dr. He and is status post UroLift 2022. Patient reports persistent worsening gross hematuria since the procedure. Feels otherwise well had a fever Tmax 100.8 otherwise normotensive. He is currently receiving Zosyn. Currently has three-way catheter in place that is draining a mix of clear urine mixed with old bloody urine. Objective Physical Exam Genitourinary: Genitourinary: cont. bladder irrig. run. Diagnosis, Assessment Plan Free Text A P: 62 y/o male s/p urolift - hematuria is improved - stop cbi - discharge with black tomorrow at 1617 RPT #:[id number] END OF REPORT [facility] 2023-01-07 05:20:00 [id number] [place] [id number] PATIENT NAME: MATHEW CASTILLO ADMIT DATE: 01/06/23 ACCOUNT NO: [id number] ROOM NO: [facility] AGE: 62 REPORT TYPE: PROGRESS NOTE SEX: M ADMITTING PHYSICIAN:Salinas Alba MD ATTENDING PHYSICIAN:Salinas Alba MD DATE: 01/06/2023 SUBJECTIVE: The patient examined, chart reviewed, events of last 24 hours noted. The patient clinically is not much changed, currently resting comfortably in bed. Denies any new complaints. Remains afebrile. No nausea or vomiting reported. No diarrhea reported. The patient continues to have a 3-way Black catheter in place. No further hematuria noted and his urine appears to be clearing out. MEDICATIONS: Include benztropine mesylate, tamsulosin, haloperidol, Zosyn IV, Tylenol p.r.n., docusate sodium p.r.n., hydrocodone bitartrate p.r.n., hydralazine p.r.n., morphine sulfate p.r.n., and ondansetron p.r.n. PHYSICAL EXAMINATION: GENERAL: The patient is resting in bed. He is awake and alert. Does not appear to be toxic. Does not appear to be in any acute distress. VITAL SIGNS: Temperature maximum in last 24 hours is 37.0 degrees Celsius, blood pressure is 106/66, respirations are 17 per minute, and pulse is 86 per minute. The patient's weight is around 71 kg. HEENT: Head is atraumatic and normocephalic. Pupils are equal and reacting to light and accommodation bilaterally. Extraocular movements are intact. Oropharynx is clear. Oral hygiene is fair. NECK: Supple. JVD is absent. No carotid bruit, thyromegaly, or cervical lymphadenopathy. There is fair air entry bilaterally. CARDIOVASCULAR: S1, S2 audible. No murmur, gallop, S3 or S4 appreciated. ABDOMEN: Soft and full, nontender. No hepatosplenomegaly. No renal angle tenderness noted. Mild suprapubic tenderness noted. Bowel sounds are normoactive. EXTREMITIES: The patient has 3-way Black catheter in place and has very faint hematuria at the present time. EXTREMITIES: Both calves are soft. No calf tenderness. No pedal edema. Peripheral pulses are faintly palpable. LABORATORY DATA: WBC has decreased to around 10,000 today with hemoglobin of 10, hematocrit of 30, platelet count is 187. Serum sodium is 139, potassium 4.0, chloride 103, bicarbonate 29, glucose 106, BUN 17, creatinine 0.9, estimated GFR is 96, calcium is 8.2. One out of two blood cultures done on 01/04/2023 has shown growth of Enterococcus species, identification susceptibility is pending,=. The second blood culture, however, is showing no growth at 48 hours of incubation. Urine culture is showing 10,000 to 50,000 colony forming units of gram-negative rods, identification and susceptibility is pending. Urology progress note appreciated. PATIENT NAME: MATHEW CASTILLO ASSESSMENT AND PLAN: The patient with multiple comorbidities including history of schizophrenia and benign prostatic hypertrophy had undergone UroLift procedure on 01/03/2023 and subsequently was discharged to home; however, next day, he started to have hematuria and was readmitted .The patient also had a temperature spike and had blood cultures done and 1 out of 2 blood culture has shown growth of Enterococcus species while the other blood culture is negative and his urine culture is showing growth of gram-negative rods, while his urinalysis did not show any bacteria. The patient had leukocytosis, which seems to have improved with IV antibiotics, and in this setting, it will be appropriate to keep him on the current antibiotic regimen. We will follow up on the identification of Enterococcus species. We will alter antibiotic regimen based on the final culture results. Discussed with the patient's nursing staff. Dictated By: Skip Jaffe MD Date Dictated: 01/07/2023 05:20:31 Date Transcribed: 01/07/2023 05:56:47 [facility] Receipt ID: [id number] Authenticated and Edited by Skip Jaffe MD On 01/22/23 5:18:20 AM at 0520 PATIENT NAME: MATHEW CASTILLO [facility] 2023-01-06 21:39:00 [facility] ([facility]) Internal Medicine Prog. Note REPORT#:[id number] REPORT STATUS: Signed REPORT INITIALIZATION DATE:01/06/23 TIME: 2138 PATIENT: MATHEW CASTILLO UNIT #: [id number] ROOM/BED: [place] [address] : 59 AGE: 62 SEX: M ATTEND: Salinas Alba MD ADM AUTHOR: Sofia Cheng HIDE AND [employer]IN FLESHING MACHINE OPERATOR REPT SERVICE DT/TIME: 01/06/232138 * ALL edits or amendments must be made on the electronic/computer document * Subjective Chief complaint: Hematuria HPI: 62-year-old male with last medical history of, BPH, s/p bladder lift yesterday by Dr. He transferred from [place] for urology evaluation secondary to hematuria after bladder irrigation failed. pt was seen and evaluated by Dr. 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 Last admitted to [facility] on 10/16/22 with urinary retention. Abnormal labs: WBC 16.7, lctic acid-2.9, ua with trace leukocyte estrace and wbc >50 CT abd/pelvis 1. Prostatomegaly. Decompressed bladder with a Black in place. 2. No hydronephrosis. No enhancing renal masses. 3. Cholelithiasis and mildly distended gallbladder. 4. Moderate hiatal hernia. Review of Systems Additional notes: Constitutional: Denies: chills, fever. ENT: Denies: earache, nasal congestion, sore throat. Respiratory: Denies: hemoptysis, parox nocturnal dyspnea, pleurisy, pleuritic pain, pneumonia , SOB, [...] confusion, delusional, depression, homicidal ideation, hostile, insomnia, stress , suicidal ideation, visual hallucination. Objective General VS/I O: Vital Signs Date Temp Pulse Resp B/P B/P Mean Pulse Ox FiO2 01/05-01/06 36.7-37.0 71-96 14-17 100-122/66-71 77.5-86.4 - Last Documented: Result Date Time Pulse Ox [...] Weight (lb): Weight (oz): Weight (kg): 70.909 Medications: Active Meds + DC'd Last 24 Hrs Benztropine Mesylate (COGENTIN) 1 MG DAILY PO Haloperidol (HALDOL) 10 MG BID PO Ceftriaxone Sodium (ROCEPHIN) 2,000 MG Q24H IV (DC) Sodium Chloride (SODIUM CHLORIDE) 20 ML Tamsulosin HCl (Flomax 0.4 mg) 0.4 MG [...] (SODIUM CHLORIDE 0.9% 100 ML) 100 ML Sodium Chloride (SODIUM CHLORIDE 0.9%) 1,000 ML .[id number] IV Sodium Chloride (SODIUM CHLORIDE 0.9%) 1,000 ML BOLUS IV Results Findings/Data: Laboratory Tests 01/06/23516: [Embedded Image Not Available] Laboratory Tests 01/06 517 Chemistry Sodium (134 - [...] (Auto) (14.0 - 32.0 %) 11.8 L [place] % (Auto) (4.8 - 9.0 %) 7.5 Eos % (Auto) (0.3 - 3.7 %) 3.2 Baso % (Auto) (0.0 - 2.0 %) 0.4 Neut # (Auto) (2.0 - 7.6 x10 3/uL) 7.43 Lymph # (Auto) (1.0 - 3.8 x10 3/uL) 1.14 [place] # (Auto) (0.1 - 0.8 x10 3/uL) [...] 0.1 x10 3/uL) 0.00 Diagnosis, Assessment Plan Hospital course to date: General appearance: alert, awake Head/Eyes: atraumatic, clear cornea, EOMI, normocephalic, normal conjunctiva/ sclera, normal eyelids/periorb, PERRLA Neck: non-tender, no bruit/NL carotids, no JVD, normal thyroid, supple/no meningismus Cardiovascular: normal capillary refill, regular rate rhythm Respiratory: no distress, no tenderness Abdomen/GI: active bowel sounds, soft, non-tender, no guarding, no rebound, no distention, no mass/organomegaly, no pulsatile mass, no hernia, normal abdominal aorta Abdomen quadrants: LLQ normal bowel sounds, LUQ normal bowel sounds, RLQ normal bowel sounds, RUQ normal bowel sounds Genitourinary: urinary catheter, hematuria Extremities: moves all, no edema-all extremities, normal capillary refill, normal range of motion, normal sensory, normal motor function 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 He transferred from [place] for urology evaluation secondary to hematuria after bladder irrigation failed. pt was seen and evaluated by Dr. 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 Last admitted to [facility] on 10/16/22 with urinary retention. Abnormal labs: WBC 16.7, lctic acid-2.9, ua with trace leukocyte estrace and wbc >50 CT abd/pelvis: 1. Prostatomegaly. Decompressed bladder with a Black in place. 2. No hydronephrosis. No enhancing renal masses. 3. Cholelithiasis and mildly distended gallbladder. 4. Moderate hiatal hernia. 1. Hematuria s/p bladder lift 2. Leukocytosis 3. sepsis/UTI LAB REPORTS ANAEROBIC BOTTLE: GRAM POSITIVE COCCI IN PAIRS AND CHAINS, aerobic bottle pending. 4. Cholelithiasis and mildly distended gallbladder. 5. HX OF BPH, Hypertension, Schizophrenia Plan of care: Admit patient for further evaluation and treatment Urology consultation in place Keep Black with CBI Ceftriaxone 2 g daily ID consultation Follow-up with blood culture and urine culture I's and O's Replace electrolytes Repeat labs Further recommendation based on patient's clinical course 01/06/2023 Vital signs within normal limits Blood culture shows Enterococcus species Urine culture grows gram-negative teodoro-identification and sensitivity pending Hematuria is improved. Wean CBI as tolerated per uro Continue IV antibiotics Zosyn per ID, ceftriaxone is discontinued Started on Cogentin, still on tamsulosin. Monitor for further bleeding Pain medications as needed Follow-up cultures, labs, continue medications and supportive care at 0015 at 0740 RPT #:[id number] END OF REPORT [facility] 2023-01-06 19:39:00 [facility] ([facility]) Urology Progress Note REPORT#:[id number] REPORT STATUS: Signed REPORT INITIALIZATION DATE:01/06/23 TIME: 1938 PATIENT: MATHEW CASTILLO UNIT #: [id number] ROOM/BED: [facility]-1 : 59 AGE: 62 SEX: M ATTEND: Salinas Alba MD ADM AUTHOR: Dave He MD REPT SERVICE DT/TIME: 01/06/231938 * ALL edits or amendments must be made on the electronic/computer document * Subjective HPI: Mathew Castillo is a 62 yo M history of hypertension, schizophrenia, BPH urinary retention who follows with Dr. He and is status post UroLift 2022. Patient reports persistent worsening gross hematuria since the procedure. Feels otherwise well had a fever Tmax 100.8 otherwise normotensive. He is currently receiving Zosyn. Currently has three-way catheter in place that is draining a mix of clear urine mixed with old bloody urine. Objective General VS/I O: Last Documented: Result Date Time Pulse Ox 97 01/06 1540 B/P 100/66 01/06 1540 B/P Mean 77.5 01/06 1540 O2 Delivery Room air 01/06 154 Temp 36.7 01/06 154 Pulse 71 01/06 1540 Resp 14 01/06 1540 24 hour I O ending at 0700: 01/06 0700 01/05 1900 Intake Total 400.00 Output Total 1000 Balance -600.00 Intake, IV 400.00 Output, Urine 1000 PATIENT WEIGHT: Weight (lb): Weight (oz): Weight (kg): 70.909 Physical Exam General appearance: alert, awake, oriented Genitourinary: Genitourinary: cont. bladder irrig. run. Results Findings/Data: Laboratory Tests: 01/06 05 Chemistry Sodium (134 - [...] (Auto) (14.0 - 32.0 %) 11.8 L [place] % (Auto) (4.8 - 9.0 %) 7.5 Eos % (Auto) (0.3 - 3.7 %) 3.2 Baso % (Auto) (0.0 - 2.0 %) 0.4 Neut # (Auto) (2.0 - 7.6 x10 3/uL) 7.43 Lymph # (Auto) (1.0 - 3.8 x10 3/uL) 1.14 [place] # (Auto) (0.1 - 0.8 x10 3/uL) [...] 3/uL) 0.00 Diagnosis, Assessment Plan Free Text A P: 62 y/o male s/p urolift - hematuria is improved - wean cbi as tolerated at 1941 RPT #:[id number] END OF REPORT [facility] 2023-01-06 19:19:00 [facility] ([facility]) Infectious Dis. Progress Note REPORT#:[id number] REPORT STATUS: Signed REPORT INITIALIZATION DATE:01/06/23 TIME: 1918 PATIENT: MATHEW CASTILLO UNIT #: [id number] ROOM/BED: [facility]-1 : 59 AGE: 62 SEX: M ATTEND: Salinas Alba MD ADM AUTHOR: Skip Jaffe MD REPT SERVICE DT/TIME: 01/06/231918 * ALL edits or amendments must be made on the electronic/computer document * Subjective Internal record Patient examined, [...] on January 03, [address] Reinaldo He. Recurrent fever and leukocytosis most secondary to [...] possibility. [place] [id number] colony-forming units of the Gram- negative rods. Identification and susceptibility is pending. Keep the patient on IV Zosyn. at 0411 RPT #:[id number] END OF REPORT [facility] 2023-01-06 17:40:00 [id number] [place] [address] PATIENT NAME: MATHEW CASTILLO ADMIT DATE: 01/06/23 ACCOUNT NO: [id number] ROOM NO: [facility] AGE: 62 REPORT TYPE: CONSULTATION REPORT SEX: M ADMITTING PHYSICIAN:Salinas Alba MD ATTENDING PHYSICIAN:Salinas Alba MD CONSULTATION DATE: 01/05/2023 INFECTIOUS DISEASE CONSULTATION The patient examined, chart reviewed, old records reviewed. Thank you, Dr. Michael, for asking me to evaluate Mr. Mathew Castillo. HISTORY OF PRESENT ILLNESS: Mr. Castillo is known to me from his recent hospitalization at [facility] in 10/2022. He is a 62-year-old male with a past medical history of schizophrenia, benign prostatic hypertrophy with recurrent urinary symptomatology, history of previous episode of urinary retention due to bladder neck obstruction requiring indwelling Black catheter placement and hospitalization in October of 2022. The patient lives in [place] and he had an outpatient prostate procedure done by Dr. Dave He with UroLift on Friday01/03/2023 and was discharged home on the same day. The patient went back to [place]. However, subsequently, he started to notice ladan hematuria on Friday and had no other constitutional symptoms including fever or chills. The patient because of worsening hematuria decided to go to the hospital. He went to hospital in [place] and he was told to follow up with the urologist and he was transferred to the [facility]. The patient at present is hemodynamically [...] benign prostatic hypertrophy, history of previous hospitalizations in October of 2022 with urinary obstruction due to bladder neck obstruction. The patient had indwelling Black catheter placed, which he was discharged with. PATIENT NAME: MATHEW CASTILLO PAST SURGICAL HISTORY: The patient previously had no surgical history. However, he has undergone UroLift procedure on 01/03/[address] Dave He as an outpatient. VACCINATION HISTORY: The patient has received 2 doses of COVID-19 vaccination. No further booster doses were given. ALLERGIES: THE PATIENT HAS NO KNOWN DRUG ALLERGIES. SOCIAL AND PERSONAL HISTORY: The patient is single. He lives with his daughter in [place]. The patient has been a longtime smoker and continues to smoke. No history of IV drug use, alcohol use, or substance abuse. 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 At that time, he started to have auditory hallucinations and was subsequently diagnosed with schizophrenia. CURRENT MEDICATIONS: Include benztropine mesylate, tamsulosin, haloperidol, Zosyn IV, Tylenol p.r.n., docusate sodium p.r.n., hydrocodone bitartrate p.r.n., hydralazine p.r.n., morphine sulfate p.r.n., ondansetron p.r.n., ceftriaxone IV. PHYSICAL EXAMINATION: GENERAL: The patient is resting in bed. He is awake and alert. Does not appear to be toxic. Does not appear to be in any acute distress. VITAL SIGNS: Temperature maximum in last 24 hours is 38.2 degrees Celsius, blood pressure is 106/66, respirations are 17 per minute, and pulse is 86 per minute. The patient's weight is around 71 kg. HEENT: Head is atraumatic and normocephalic. Pupils are equal and reacting to light and accommodation bilaterally. Extraocular movements are intact. Oropharynx is clear. Oral hygiene is fair. NECK: Supple. JVD is absent. No carotid bruit, thyromegaly, or cervical lymphadenopathy. There is fair air entry bilaterally. CARDIOVASCULAR: S1, S2 audible. No murmur, gallop, S3 or S4 appreciated. ABDOMEN: Soft and full, nontender. No hepatosplenomegaly. No renal angle tenderness noted. Mild suprapubic tenderness noted. Bowel sounds are normoactive. EXTREMITIES: The patient has 3-way Black catheter in place and has very faint hematuria at the present time. EXTREMITIES: Both calves are soft. No calf tenderness. [...] 1.69. High-density lipoprotein is 63.8 and low-density lipoprotein is 104. TSH is 2.37. Lactic acid on admission is 2.9. First repeat is 0.9 and second repeat is 1.1. Urinalysis done on admission showed cloudy urine with 2+ blood, negative nitrite, trace leukocyte esterase, more than 50 wbc's, more than 50 rbc's, no bacteria, 4+ calcium oxalate crystals, and 2+ yeast. CT of abdomen and pelvis with contrast done on admission shows prostatomegaly, decompressed bladder with Black in place. No hydronephrosis, no enhancing renal masses, cholelithiasis and a mildly distended gallbladder, moderate hiatal PATIENT NAME: MATHEW CASTILLO hernia. On admission, [place] [address]. The patient had 2 blood cultures done. Urine culture is incubating. ASSESSMENT: The patient with multiple comorbidities including history of benign prostatic hypertrophy with previous episode of urinary retention requiring indwelling Black catheter placement has undergone an UroLift procedure on 01/03/2023, and subsequently was discharged on the same day; however, yesterday he started to have hematuria and was seen at a hospital in [facility] and is transferred to [facility] for further Urology evaluation. 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 reception clerk today, and he is empirically started on broad-spectrum IV antibiotics after getting appropriate cultures. His urinalysis does have marked pyuria without any bacteriuria and his blood and [...] IV antibiotics while awaiting urine and blood culture results. SUGGEST: 1. Continue IV Zosyn for now. 2. Follow up blood and urine culture result. 3. Agree with urology recommendations. 4. The patient's COVID-19 vaccination is up to date. 5. Further recommendations to follow depending on the clinical course of the patient. Thank you again for inviting me to participate in the care of your patient. I will continue to follow along with you. The case was discussed with the patient's nursing staff. Dictated By: Skip Jaffe MD Date Dictated: 01/06/2023 17:40:46 Date Transcribed: 01/06/2023 21:28:36 DORADO/GLORIA Receipt ID: [id number] Authenticated by Skip Jaffe MD On 01/22/2023 05:17:37 AM at 0517 PATIENT NAME: MATHEW CASTILLO [facility] 2023-01-05 23:00:00 [facility] ([facility]) Infect Disease Consult Note REPORT#:[id number] REPORT STATUS: Signed REPORT INITIALIZATION DATE:01/05/23 TIME: 2299 PATIENT: MATHEW CASTILLO UNIT #: [id number] ROOM/BED: [place] [address] : 59 AGE: 62 SEX: M ATTEND: Salinas Alba MD ADM AUTHOR: Skip Jaffe MD REPT SERVICE DT/TIME: 01/05/232299 * ALL edits or amendments must be made on the electronic/computer document * History of Present Illness HPI: Thank you for the consultation. Patient's current and old record reviewed. Orders initiated. See full dictated consultation report for further details. Patient is known to our service from his recent hospitalization at [facility] in October of 2022. ASSESSMENT AND PLAN: Fever of up to 100.8 degree F. Status post UroLift surgery on January 03, [address] Reinaldo He. Recurrent fever and leukocytosis most secondary to noninfectious/ noninfectious causes. Rule out urinary tract infection. Urinalysis however, shows no bacteriuria. Rule out DVT and low-grade PE. Doubt any new nosocomial acquired infection. Continue empiric IV antibiotics for now. Follow-up blood and urine culture result. History - Adult longitudinal Allergies: Coded Allergies: No Known Allergies (10/16/22) at 0526 RPT #:[id number] END OF REPORT [facility] 2023-01-05 13:05:00 [facility] ([facility]) Urology Consult Note REPORT#:[id number] REPORT STATUS: Signed REPORT INITIALIZATION DATE:01/05/23 TIME: 1305 PATIENT: MATHEW CASTILLO UNIT #: [id number] ROOM/BED: [place] [address] : 59 AGE: 62 SEX: M ATTEND: Salinas Alba MD ADM AUTHOR: Crystal Alberts MD REPT SERVICE DT/TIME: 01/05/23 1305 * ALL edits or amendments must be made on the electronic/computer document * History of Present Illness HPI Requesting clinician: MARLENA Cheng Reason for consult: Hematuria after urolift Chief complaint: Hematuria HPI: Mathew Castillo is a 62 yo M history of hypertension, schizophrenia, BPH urinary retention who follows with Dr. He and is status post UroLift 2022. Patient reports persistent worsening gross hematuria since the procedure. Feels otherwise well had a fever Tmax 100.8 otherwise normotensive. He is currently receiving Zosyn. Currently has three-way catheter in place that is draining a mix of clear urine mixed with old bloody urine. History Past medical history: Reports: Hypertension, BPH, Schizophrenia. Additional surgical history: None reported Additional family history: Noncontributory Alcohol use: Denies EtOH use Drug use: Denies recreational drugs Smoking status for patients 13 years old or older: Former Smoker Date last smoked: 10/16/22 Allergies: Coded Allergies: No Known Allergies (10/16/22) Review of Systems ROS Constitutional: Denies: chills, fatigue, fever, generalized weakness. : Reports: hematuria. Denies: dysuria, flank pain. All systems rev neg: except as marked Objective VS/I O: Last Documented: Result Date Time Pulse Ox 93 01/06 1112 B/P 110/72 01/06 1112 B/P Mean 84.8 01/06 1112 Temp 98.1 01/06 1112 Pulse 88 01/06 1112 Resp 18 01/06 1112 O2 Delivery Room air 01/06 404 24 hour I O ending at 0700: 01/05 0700 01/04 1900 Intake Total Output Total Balance Patient 70.909 kg Weight Weight Standing scale Measurement Method PATIENT WEIGHT: Weight (lb): Weight (oz): Weight (kg): 70.909 Results Findings/Data: Laboratory Tests: 01/05 01/05 01/05 01/05 0328 0328 [...] (Auto) (14.0 - 32.0 %) 4.5 L [place] % (Auto) (4.8 - 9.0 %) 6.1 Eos % (Auto) (0.3 - 3.7 %) 0.3 Baso % (Auto) (0.0 - 2.0 %) 0.2 Neut # (Auto) (2.0 - 7.6 x10 3/uL) 15.99 H Lymph # (Auto) (1.0 - 3.8 x10 3/uL) 0.82 L [place] # (Auto) (0.1 - 0.8 x10 3/uL) [...] 0.1 x10 3/uL) 0.00 01/04 01/04 01/04 1327 7697 2000 Chemistry Sodium (134 - 147 mEq/L) [...] (Auto) (14.0 - 32.0 %) 5.4 L [place] % (Auto) (4.8 - 9.0 %) 5.3 Eos % (Auto) (0.3 - 3.7 %) 0.0 L Baso % (Auto) (0.0 - 2.0 %) 0.2 Neut # (Auto) (2.0 - 7.6 x10 3/uL) 14.77 H Lymph # (Auto) (1.0 - 3.8 x10 3/uL) 0.90 L [place] # (Auto) (0.1 - 0.8 x10 3/uL) [...] pH (5.0 - 7.0) 7.0 Ur Specific [place] (1.005 - 1.030) 1.005 Urine Protein (NEGATIVE) [...] labs reviewed, vital signs reviewed, CT results reviewed Free text obj notes: Physical Examination: Constitutional: no acute distress Eyes: normal external eye, conjunctiva and sclera normal Ears, nose, mouth, throat: normocephalic, moist mucous membranes Respiratory: respirations unlabored on room air Gastrointestinal: soft, non-distended, non-tender, no costovertebral angle tenderness Genitourinary: circumcised, normal phallus, bilateral descended testes, three- way Black in place draining clear urine mixed with old bloody urine Musculoskeletal: no clubbing, cyanosis or edema Skin: no rashes Neurologic: no focal deficits Psychiatric: appropriate mood and affect Hematologic: no bruising Procedure: The existing three-way Black was started on continuous bladder irrigation. The patient's bladder was manually irrigated with 1 L of sterile water with few small clots returning with his urine remaining clear. CBI was continued. Diagnosis, Assessment Plan Diagnosis, Assessment Plan Free Text A P: This is a 62-year-old male with schizophrenia, hypertension, BPH s/p UroLift . Developed persistent hematuria postop. CT abdomen pelvis with normal upper tracts, he does have a leukocytosis. Fever, otherwise appears nontoxic. He is currently receiving Zosyn and had 1 dose of ceftriaxone. - Continue Black catheter - Continue CBI, titrate to clear - Ok to resume regular diet at this time. 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 He transferred from [place] for urology evaluation secondary to hematuria after bladder irrigation failed. pt was seen and evaluated by Dr. 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 Last admitted to [facility] on 10/16/22 with urinary retention. Abnormal labs: WBC 16.7, lctic acid-2.9, ua with trace leukocyte estrace and wbc >50 CT abd/pelvis 1. Prostatomegaly. Decompressed bladder with a Black in place. 2. No hydronephrosis. No enhancing renal masses. 3. Cholelithiasis and mildly distended gallbladder. 4. Moderate hiatal hernia. History Past medical history: Reports: Hypertension, BPH, Schizophrenia. Additional surgical history: None reported Additional family history: Noncontributory Alcohol use: Denies EtOH use Drug use: Denies recreational drugs Smoking status for patients 13 years old or older: Former Smoker Date last smoked: 10/16/22 Medication/Allergy-Vaccine Hx Allergies: Coded Allergies: No Known Allergies (10/16/22) Review of Systems Constitutional: Denies: chills, fever. ENT: Denies: earache, nasal congestion, sore throat. Respiratory: Denies: hemoptysis, parox nocturnal dyspnea, pleurisy, pleuritic pain, pneumonia , SOB, [...] confusion, delusional, depression, homicidal ideation, hostile, insomnia, stress , suicidal ideation, visual hallucination. Physical Exam VS/I O Vital Signs: Date [...] (oz): Weight (kg): 70.909 General appearance: alert, awake Head/Eyes: atraumatic, clear cornea, EOMI, normocephalic, normal conjunctiva/ sclera, normal eyelids/periorb, PERRLA Neck: non-tender, no bruit/NL carotids, no JVD, normal thyroid, supple/no meningismus Cardiovascular: normal capillary refill, regular rate rhythm Respiratory: no distress, no tenderness Abdomen/GI: active bowel sounds, soft, non-tender, no guarding, no rebound, no distention, no mass/organomegaly, no pulsatile mass, no hernia, normal abdominal aorta Abdomen quadrants: LLQ normal bowel sounds, LUQ normal bowel sounds, RLQ normal bowel sounds, RUQ normal bowel sounds Genitourinary: urinary catheter, hematuria Extremities: moves all, no edema-all extremities, normal capillary refill, normal range of motion, normal sensory, normal motor function 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, oriented X 3 Skin: dry, intact, no gross abnormalities Psychiatry: no hallucinations, normal affect, normal judgment/insight, normal mood, not homicidal, not suicidal Results Findings/Data: Laboratory Tests: 01/05 01/05 01/05 01/05 0328 0328 [...] (Auto) (14.0 - 32.0 %) 4.5 L [place] % (Auto) (4.8 - 9.0 %) 6.1 Eos % (Auto) (0.3 - 3.7 %) 0.3 Baso % (Auto) (0.0 - 2.0 %) 0.2 Neut # (Auto) (2.0 - 7.6 x10 3/uL) 15.99 H Lymph # (Auto) (1.0 - 3.8 x10 3/uL) 0.82 L [place] # (Auto) (0.1 - 0.8 x10 3/uL) [...] 0.1 x10 3/uL) 0.00 01/04 01/04 01/04 1291 2143 2000 Chemistry Sodium (134 - 147 [...] (Auto) (14.0 - 32.0 %) 5.4 L [place] % (Auto) (4.8 - 9.0 %) 5.3 Eos % (Auto) (0.3 - 3.7 %) 0.0 L Baso % (Auto) (0.0 - 2.0 %) 0.2 Neut # (Auto) (2.0 - 7.6 x10 3/uL) 14.77 H Lymph # (Auto) (1.0 - 3.8 x10 3/uL) 0.90 L [place] # (Auto) (0.1 - 0.8 x10 3/uL) [...] pH (5.0 - 7.0) 7.0 Ur Specific [place] (1.005 - 1.030) 1.005 Urine Protein (NEGATIVE) [...] Urine Yeast (NONE /HPF) 2+ H Radiology data: Recent Impressions-Last 72 Hrs CAT SCAN - CT ABD PELVIS W/CONT 01/05 940 Report Impression - Status: SIGNED Entered: 01/04/2023 2038 IMPRESSION: 1. Prostatomegaly. Decompressed bladder with a Black in place. 2. No hydronephrosis. No enhancing renal masses. 3. Cholelithiasis and mildly distended gallbladder. 4. Moderate hiatal hernia. Impression By: Nick Magaña M.D. Diagnosis, Assessment Plan Free Text DxA P Notes Free Text DxA P Notes: Assessment: 62-year-old male with last medical history of, BPH, s/p bladder lift yesterday by Dr. He transferred from [place] for urology evaluation secondary to hematuria after bladder irrigation failed. pt was seen and evaluated by Dr. 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 Last admitted to [facility] on 10/16/22 with urinary retention. Abnormal labs: WBC 16.7, lctic acid-2.9, ua with trace leukocyte estrace and wbc >50 CT abd/pelvis 1. Prostatomegaly. Decompressed bladder with a Black in place. 2. No hydronephrosis. No enhancing renal masses. 3. Cholelithiasis and mildly distended gallbladder. 4. Moderate hiatal hernia. 1. Hematuria s/p bladder lift 2. Leukocytosis 3. sepsis/UTI LAB REPORTS ANAEROBIC BOTTLE: GRAM POSITIVE COCCI IN PAIRS AND CHAINS, aerobic bottle pending. 4. Cholelithiasis and mildly distended gallbladder. 5. HX OF BPH, Hypertension, Schizophrenia Plan of care: Admit patient for further evaluation and treatment Urology consultation in place Keep Black with CBI Ceftriaxone 2 g daily ID consultation Follow-up with blood culture and urine culture I's and O's Replace electrolytes Repeat labs Further recommendation based on patient's clinical course at 0055 at 0739 RPT #:[id number] END OF REPORT [facility] 2023-01-05 01:59:00 [facility] Clinical Note REPORT#:[id number] REPORT STATUS: Signed REPORT INITIALIZATION DATE:01/05/23 TIME: 158 PATIENT: MATHEW CASTILLO UNIT #: [id number] ROOM/BED: [place] [address] : 59 AGE: 62 SEX: M ATTEND: Salinas Alba MD ADM AUTHOR: Sofia Cheng NP REPT SERVICE DT/TIME: 01/05/23158 * ALL edits or amendments must be made on the electronic/computer document * Clinical Note Note: Clinical data reviewed Orders placed at 0222 RPT #:[id number] END OF REPORT [facility] 2023-01-04 20:02:00 [facility] ([facility]) EMERGENCY PROVIDER REPORT REPORT#:[id number] REPORT STATUS: Signed DATE:01/04/23 TIME: 2001 PATIENT: MATHEW CASTILLO UNIT #: [id number] ROOM/BED: [place] [address] AGE: 62 SEX: M PCP PHYS: Lakhwinder Guillermo MD SERVICE AUTHOR: Vee Horton APRNNP * ALL edits or amendments must be made on the electronic/computer document * Vee Horton 01/04/23 2002: HPI-General Illness Free Text HPI Notes Free Text HPI Notes 62 yo male with HTN, BPH, chronic indwelling black cath, s/p bladder lift yesterday per Dr. He presents with gross hematuria associated with n/v. Denies abdominal pain, weakness, dizziness, chest pain and SOB. 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 Pt denies chest pain, SOB, abdominal pain, dizziness and syncope. General Confirmed Patient Yes Initial Greet Date/Time 01/04/231928 Presentation Chief Complaint blood in urine Review of Systems ROS Statements All systems rev neg except as marked. Free Text ROS Notes Free Text ROS Notes All systems reviewed and noted in HPI. Past Medical History - Adult Stated Complaint BLOOD IN URINE BLACK LEAKING Allergies Coded Allergies: No Known Allergies (10/16/22) Calculated Suicide Risk (nurs) No risk Past Medical History: Reports: Hypertension, BPH, Schizophrenia. Additional Surgical History None reported Additional Family History Noncontributory Alcohol Use Denies EtOH use Drug Use Denies recreational drugs Smoking status for patients 13 years old or older: Former Smoker Physical Exam Vital Signs Vital Signs First Documented: Result Date Time Pulse Ox 99 [...] 1926 Review of Vital Signs Reviewed Physical Exam General/Const General/Const Awake, Alert, No acute distress, Cooperative MS Head Head Atraumatic, Normocephalic Resp/Chest Respiratory/Chest Atraumatic, Breath sounds NL, Breath sounds = bilat, No respiratory distress Cardiovascular Cardiovascular Regular rhythm, Heart sounds NL Abdomen/GI Abdomen/GI Atraumatic, Soft, Non-tender, No guarding, No rebound, BS normoactive Skin Skin No rash Genitourinary General black cath in place (gross hematuria noted) Neurologic Neurologic Oriented X3 Interpretation Diagnostics Lab Results Interpretation Considerations Independ review imaging, Reviewed prior records Results Laboratory Tests 01/04/232000: [Embedded Image Not Available] Laboratory Tests: 01/048 7705 2000 Chemistry Sodium (134 - 147 mEq/L) [...] (Auto) (14.0 - 32.0 %) 5.4 L [place] % (Auto) (4.8 - 9.0 %) 5.3 Eos % (Auto) (0.3 - 3.7 %) 0.0 L Baso % (Auto) (0.0 - 2.0 %) 0.2 Neut # (Auto) (2.0 - 7.6 x10 3/uL) 14.77 H Lymph # (Auto) (1.0 - 3.8 x10 3/uL) 0.90 L [place] # (Auto) (0.1 - 0.8 x10 3/uL) [...] pH (5.0 - 7.0) 7.0 Ur Specific [place] (1.005 - 1.030) 1.005 Urine Protein (NEGATIVE) [...] Culture Gram Stain - COMP BLOOD Recent Impressions: CAT SCAN - CT ABD PELVIS W/CONT 01/05 940 Report Impression - Status: SIGNED Entered: 01/04/20232226 IMPRESSION: 1. Prostatomegaly. Decompressed bladder with a Black in place. 2. No hydronephrosis. No enhancing renal masses. 3. Cholelithiasis and mildly distended gallbladder. 4. Moderate hiatal hernia. Impression By: Nick Magaña M.D. 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 Tachycardic [...] 4. Moderate hiatal hernia. Black draining well troughout ED course, gross hematuria persist. UA shows > 50 wbc. Plan admit to hospital medicine, consult urology for am eval. Pt/family agree with plan. ED Course Medication(s) Ordered Medication(s) Ordered: Anti-Infective [...] 01/04 IV 01/04 Patient Discharge Departure Vital Signs/Condition Vital Signs First Documented: Result Date Time Pulse Ox 99 01/04 192 B/P 128/82 01/04 192 B/P Mean 97 01/04 192 O2 Delivery Room air 01/04 192 Temp 37.4 01/04 192 Pulse 102 01/04 192 Resp 16 01/04 1926 Last Documented: Result Date Time Pulse Ox 99 01/04 1926 B/P 128/82 01/04 192 B/P Mean 97 01/04 192 O2 Delivery Room air 01/04 192 Temp 37.4 01/04 192 Pulse 102 01/04 192 Resp 16 01/04 1926 All vital signs available at the time of this entry have been reviewed. Condition Guarded Clinical Impression Clinical Impression Primary Impression: Gross hematuria Secondary Impressions: Leukocytosis, UTI (urinary tract infection) Time of Impression 0040 Disposition Decision Hospitalize Hosp Physician Name Salinas Alba MD Hosp Physician Hospitalist Request Time 34 Request Date 01/05/23 )( Accepts Hospitalization Yes )( Reason for Hospitalization gross hematuria, SIRS )( Accepted Time 34 )( Accepted Date 01/05/23 Call Information will see patient, agrees with eval, agrees with plan Discharge/Care Plan Counseled Regarding Diagnosis, Lab results, Imaging studies, Need for admission Asa Lucero 01/15/23 0551: Past Medical History - Adult Home Medications Active Scripts TAMSULOSIN ER (FLOMAX) 0.4 MG PO BID 6A 6P 30 Days #60 CAP Prov: 10/26/22 DOCUSATE SODIUM (COLACE) 100 MG PO BID PRN PRN CONSTIPATION 30 Days #60 CAP Prov: 10/26/22 Reported Medications BENZTROPINE 1 MG PO DAILY HALOPERIDOL (HALDOL) 10 MG PO BID Patient Discharge Departure Discharge/Care Plan (Auto) Prescriptions Current Visit Scripts CEPHALEXIN (KEFLEX) 500 MG PO Q6H 7 Days #28 CAPS CIPROFLOXACIN 500 MG PO BID CIPROFLOXACIN 500 MG PO BID #14 TABS Supervising Physician Note MidLv Saw Pt Alone I have reviewed the PA/HIDE AND SKIN FLESHING MACHINE OPERATOR's note and plan of care. I was available for consultation as needed at all times during the patient's visit in the emergency department. I agree with the clinical impression, plan and disposition. at 2144 at 0552 RPT #:[id number] END OF REPORT [facility] 2022-11-19 18:14:00 [facility] ([facility]) Discharge Summary REPORT#:[id number] REPORT STATUS: Signed DATE:11/19/22 TIME: 1813 PATIENT: MATHEW CASTILLO UNIT #: [id number] ROOM/BED: [place] [address] : 58 AGE: 62 SEX: M ATTEND: Salinas Alba MD ADM AUTHOR: Salinas Alba MD * ALL edits or amendments must be made on the electronic/computer document * PCP PCP PCP: PCP: No Primary or Family Physician ATTEND PHYS: Salinas Alba MD Discharge to: home General Information Problem List/A P: 1. Rupture of ureter Date of admission: Observation Start Date: Date of admission: 10/16/22 Discharge date: 10/26/22 Admission diagnosis: 1. Abdominal distention, severe bilateral hydronephrosis, large amount of urinary retention -Status post Black insertion large amount of urine was obtained 2. Acute kidney injury 3. Hypokalemia/hypocalcemia, hyperchloremia 4. Metabolic acidosis 5. Possible BPH 6. Severe bilateral hydronephrosis 7. Hypertension 8. Schizophrenia Discharge diagnosis: N28.89 OTHER SPECIFIED DISORDERS OF KIDNEY AND URETER [...] HYPERPLASIA WITH LOWER URINARY TRACT SYMP Hospital course: 62-year-old male with last medical history of, BPH, transferred from [facility] for urology evaluation and treatment secondary to possible ruptured ureter. As per patient his abdomen was distended for at least for 2 days and he was having difficulty urinating. Patient presented to outside facility. Imaging revealed severe bilateral hydronephrosis with evidence of active urine extravasation and large amount of urine in the bladder pushing all the way up to the abdomen. As per patient's daughter about 3 L of fluid was removed within 10 minutes of Black insertion. Patient reported he had been experiencing urinary hesitancy for the past 2 to 3 years. Patient was admitted for further evaluation and treatment. Urology and nephro consultation was placed. Patient was also started on tamsulosin and bicarb drip. 10/19 MRSA surveillance screen was negative. 10/20 X-ray of the chest showed mild interstitial pulmonary edema. No focal consolidation. Consultants evaluations noted. 10/21 Blood culture showed no growth after 48 hours ECG: Normal sinus rhythm No evidence of deep vein thrombosis ID had seen the patient. Continued empiric IV antibiotics-Zosyn, tamsulosin p.o. Patient was discharged with Black in place. The patient was on continuous telemetry, BP control, glycemic control, pain control, electrolyte control, DVT/ GI prophylaxis. The patient was hemodynamically stable and was discharged home, follow-up with PCP. Discharge medications as per reconciliation list. Med Rec Med Rec Discharge meds: Continue taking these medications: BENZTROPINE (BENZTROPINE) 0.5 MG TAB 1 MILLIGRAM ORAL DAILY. HALOPERIDOL (HALDOL) 10 MG TAB 10 MILLIGRAM ORAL TWICE DAILY. Start taking the following new medications: TAMSULOSIN ER (FLOMAX) 0.4 MG CAP.SR.24H 0.4 [...] TWICE DAILY. Qty = 20 No Refills Objective VS/I O Last Documented: Result Date Time Pulse Ox 97 10/26 1700 B/P 112/69 10/26 1700 B/P Mean 83.3 10/26 1700 O2 Delivery Room air 10/26 1700 Temp 37.2 10/26 1700 Pulse 90 10/26 1700 Resp 15 10/26 1700 PATIENT WEIGHT: Weight (lb): Weight (oz): Weight (kg): 68.000 Physical Exam General appearance: alert, awake Head/Eyes: atraumatic, clear cornea, EOMI, normocephalic, normal conjunctiva/ sclera, normal eyelids/periorb, PERRLA ENT: normal dentition, normal ear left, normal ear right, normal nose, normal pharynx, normal sinus Cardiovascular: regular rate rhythm Respiratory: decreased breath sounds, clear to auscultation, no distress, no tenderness Abdomen/GI: active bowel sounds, soft Abdomen quadrants: LLQ normal bowel sounds, LLQ tenderness, LUQ normal bowel sounds, RLQ normal bowel sounds, RLQ tenderness, RUQ normal bowel sounds Genitourinary: black Extremities: moves all, no edema-all extremities, normal capillary refill, normal range of motion, normal sensory, normal motor function 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, oriented X 3 Skin: dry, intact, no gross abnormalities Psychiatry: no hallucinations, normal mood Treatments Procedures Lab: Laboratory Tests 10/26 10/26 10/26 10/26 1658 1158 [...] H Calcium (8.0 - 10.5 mg/dL) 8.1 Imaging: PROCEDURE INFORMATION: Exam: CTA Chest With Contrast Exam [...] No sonographic evidence for DVT Discharge Instructions PCP PCP: PCP: No Primary or Family Physician ATTEND PHYS: Salinas Alba MD )( Discharge to: Home/Self Care Discharge Instructions Additional Discharge Routines: PCP Follow-Up, Pinball Machine Repairer Follow-Up )( Diet: Regular Follow-up Appointments PCP follow up: PCP: Yumiko Geller MD PCP follow up timeframe: In 5 days Special instructions: CAN FU WITH OWN PCP Attending Physician: Attending Physician: Salinas Alba MD Attending physician follow up timeframe: In 1-2 weeks Special instructions: CALL TO SCHEDULE AN APPOINTMENT Consulting provider 1: Provider 1: Dave He MD Specialty: Urology Special instructions: FOR REMOVAL OF BLACK at 1132 RPT #:[id number] END OF REPORT [facility] 2022-10-26 20:52:00 [id number] [address] PATIENT NAME: MATHEW CASTILLO ADMIT DATE: 10/16/22 ACCOUNT NO: [id number] [place] [facility] [place] 62 REPORT TYPE: PROGRESS NOTE SEX: M ADMITTING PHYSICIAN:Salinas Alba MD ATTENDING PHYSICIAN:Salinas Alba MD DATE: 10/25/2022 SUBJECTIVE: The patient examined, chart reviewed, events of last 24 hours noted. The patient clinically is doing fair, remains awake and comfortable. No new problems reported. Remains afebrile. No nausea, vomiting reported. No diarrhea reported. Continues to have indwelling Black catheter in place. CURRENT MEDICATIONS: Include benztropine, cholecalciferol, lispro insulin, tamsulosin, haloperidol, Zosyn IV, Tylenol p.r.n., docusate sodium p.r.n., glucagon p.r.n., hydrocodone bitartrate p.r.n., hydralazine p.r.n., ondansetron p.r.n. PHYSICAL EXAMINATION: GENERAL: The patient is resting comfortably in bed. He is awake and alert, does not appear to be toxic, does not appear to be in any acute distress. VITAL SIGNS: Temperature maximum in last 24 hours is 37.0 degrees Celsius. Current temperature is 37.1 degrees Celsius, blood pressure is 118/70, respirations 16 per minute, pulse is 80 per minute. The patient's weight is around 68 kg. HEENT: Head is atraumatic and normocephalic. Pupils are equal, round and reacting to light and accommodation bilaterally. Extraocular movements are intact. Oropharynx is clear. Oral hygiene is fair. NECK: Supple. JVD is absent. No carotid bruit, thyromegaly, or cervical lymphadenopathy. LUNGS: There is fair air entry bilaterally. CARDIOVASCULAR: S1, S2 audible. No murmur, gallop, S3 or S4 appreciated. ABDOMEN: Soft and slightly bulging. The patient has mild suprapubic area tenderness. No hepatosplenomegaly. Bowel sounds are normoactive. Has minimal tenderness at the renal angles bilaterally. GENITOURINARY: The patient has indwelling Black catheter in place. The catheter appears to be working fine and has clear urine and being drained into the bag. EXTREMITIES: Both calves are soft. No calf tenderness. No pedal edema. Peripheral pulses are faintly palpable bilaterally. SKIN: The patient's peripheral IV sites are clean without any evidence of phlebitis. The lower abdominal discomfort has improved. He has an indwelling Black catheter in place. LABORATORY DATA: WBC is stable around 15,000 with hemoglobin of 13, hematocrit of 39, platelet count is 421. Serum sodium is 138, potassium 4.0, chloride 108, bicarbonate 27, glucose 80, BUN 14, creatinine 0.9, estimated GFR is 96, calcium is 7.8. PATIENT NAME: MATHEW CASTILLO ASSESSMENT AND PLAN: The patient with multiple comorbidities was admitted through Emergency Room where he was transferred from [facility] with acute urinary retention. He had 3 liters of urine in the bladder and had Black catheter in place. The patient was evaluated by Urology Service and he clinically has shown improvement in his condition with IV antibiotics. He also had episode of fever and leukocytosis, which improved with changing antibiotics to Zosyn IV. His antibiotics have been discontinued. Clinically, he seems to be doing fairly well. We will keep him off antibiotics and monitor him closely for any new development. Discussed with the patient's nursing staff. Dictated By: Skip Jaffe MD Date Dictated: 10/26/2022 20:52:41 Date Transcribed: 10/26/2022 21:14:58 ESTRADA/JORGE/CORETTA Receipt ID: [id number] Authenticated and Edited by Skip Jaffe MD On 11/02/22 2:24:00 AM at 0323 PATIENT NAME: MATHEW CASTILLO [facility] 2022-10-26 19:14:00 [facility]) Internal Medicine Prog. Note REPORT#:[id number] REPORT STATUS: Signed DATE:10/26/22 TIME: 1913 PATIENT: MATHEW CASTILLO UNIT #: [id number] ROOM/BED: [place] [address] : 58 AGE: 62 SEX: M ATTEND: Salinas Alba MD ADM AUTHOR: Sofia Cheng HIDE AND SKIN FLESHING MACHINE OPERATOR * ALL edits or amendments must be made on the electronic/computer document * Subjective Chief complaint: Abdominal distention, hydronephrosis HPI: 62-year-old male with last medical history of, BPH, transferred from [facility] for urology evaluation and treatment secondary to possible ruptured ureter. As per patient his abdomen was distended for at least for 2 days and he was having difficulty urinating. Patient presented to outside facilityImaging revealed severe bilateral hydronephrosis with evidence of active urine extravasation and large amount of urine in the bladder pushing all the way up to the abdomen. As per patient's daughter about 3 L of fluid was removed within 10 minutes of Black insertion. Patient reports he has been experiencing urinary hesitancy for the past 2 to 3 years. Denies seeing a urologist. Patient denies fever, chills, dysuria, hematuria, or other associated symptoms. Patient denies shortness of breath, chest pain, nausea, vomiting, diarrhea, constipation. Admission vital signs blood pressure 146/78, pulse 92, respiration 18, temperature 37.1, O2 sat 96% on room air. Abnormal labs: Hemoglobin 10.9, hematocrit 31.7, potassium 2.8, chloride 114, [...] ideation, hostile, insomnia, stress, suicidal ideation. Objective General VS/I O: Vital Signs Date Temp Pulse Resp B/P B/P Mean Pulse Ox FiO2 10/25-10/26 36.8-37.2 69-95 15-19 104-125/64-79 77.4-94.2 95-98 Last Documented: Result Date Time Pulse Ox 97 10/26 1700 B/P 112/69 10/26 1700 B/P Mean 83.3 10/26 170 O2 Delivery Room air 10/26 1700 Temp 37.2 10/26 170 Pulse 90 10/26 170 Resp 15 10/26 170 PATIENT WEIGHT: Weight (lb): Weight (oz): Weight (kg): 68.000 Medications: Active Meds + DC'd Last 24 Hrs Cholecalciferol (VITAMIN D) 1,000 INTL.UNITS DAILY PO [...] AC HS SUBQ Results Findings/Data: Laboratory Tests 10/26/22 0600: [Embedded Image Not Available] Laboratory Tests 10/26 10/26 10/26 10/26 1658 1158 [...] - 10.5 mg/dL) 8.1 Diagnosis, Assessment Plan Hospital course to date: General appearance: alert, awake Head/Eyes: atraumatic, clear cornea, EOMI, normocephalic, normal conjunctiva/ sclera, normal eyelids/periorb, PERRLA ENT: normal dentition, normal ear left, normal ear right, normal nose, normal pharynx, normal sinus Cardiovascular: regular rate rhythm Respiratory: decreased breath sounds, clear to auscultation, no distress, no tenderness Abdomen/GI: active bowel sounds, soft Abdomen quadrants: LLQ normal bowel sounds, LLQ tenderness, LUQ normal bowel sounds, RLQ normal bowel sounds, RLQ tenderness, RUQ normal bowel sounds Genitourinary: black Extremities: moves all, no edema-all extremities, normal capillary refill, normal range of motion, normal sensory, normal motor function 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 Rupture of ureter Free Text DxA P Notes Free text DxA P notes: Assessment: 62-year-old male with last medical history of, BPH, transferred from [facility] for urology evaluation and treatment secondary to possible ruptured ureter. As per patient his abdomen was distended for at least for 2 days and he was having difficulty urinating. Patient presented to outside facilityImaging revealed severe bilateral hydronephrosis with evidence of active urine extravasation and large amount of urine in the bladder pushing all the way up to the abdomen. As per patient's daughter about 3 L of fluid was removed within 10 minutes of Black insertion. Patient reports he has been experiencing urinary hesitancy for the past 2 to 3 years. 1. Abdominal distention, severe bilateral hydronephrosis, large amount of urinary retention -Status post Black insertion large amount of urine was obtained 2. Acute kidney injury 3. Hypokalemia/hypocalcemia, hyperchloremia 4. Metabolic acidosis 5. Possible BPH 6. Severe bilateral hydronephrosis 7. Hypertension 8. Schizophrenia Plan of care: Admit patient for further evaluation and treatment Urology consultation in place Keep Black to bedside drainage I's and O's Monitor renal function Nephrology consultation Replace electrolytes Start tamsulosin Bicarb drip started Repeat CT of the abdomen and pelvis if needed Repeat labs Further recommendation based on patient's clinical course 10/17/2022 Vital signs within normal limits Hypokalemia 3.2, hypomagnesemia 1.50 Renal function is improved, discontinue bicarb drip, continue electrolyte control-replace as needed per nephro Urology is following Continue tamsulosin BP control-on hydralazine as needed, pain control Continue telemetry monitoring, intake and output, fall precaution Follow-up labs, continue medications and supportive care 10/18/2022 BP is controlled Hypocalcemia 7.4, hypomagnesemia 1.5, Hypokalemia 3.1 MRSA surveillance screen pending results Uro and Nephro are following Started on cholecalciferol p.o., still on tamsulosin Electrolyte control- magnesium and potassium replaced Fall precaution Follow-up labs, continue medications and supportive care 10/19/2022 Vital signs within normal limits, [...] X-ray of the chest shows mild interstitial pulmonary edema. No focal consolidation. Consultants evaluations noted Electrolyte control replace magnesium Started on IV antibiotic Zosyn Consult placed to Dr. Jaffe for patients UTI Troponin I Blood precaution, glycemic control Follow-up EKG, labs, continue medications and supportive care 10/21/2022 POC glucose is controlled D-dimer 5949 Hypokalemia 3.0, hypomagnesemia 1.50, hypocalcemia 7.3 Blood culture shows no growth after 48 hours ECG: Normal sinus rhythm No evidence of deep vein thrombosis ID has seen the patient. Continue empiric IV antibiotics-Zosyn, tamsulosin p.o. for now. Continue electrolyte control replace potassium and magnesium Pain control, glycemic control Follow-up electrolytes and labs, continue medications and present 10/22/2022 Vital signs within normal limits, POC glucose is controlled Hypocalcemia 7.8, hypomagnesemia 1.72 No sonographic evidence for DVT Blood culture shows no growth after 48 hours Patient with good urine output, renal function is improved, patient will follow- up as an outpatient Still on IV antibiotic Zosyn, tamsulosin p.o. Continue electrolyte control-replace magnesium Continue pain control, glycemic control Follow-up labs, continue medications and supportive care October 23, 2022: Continue IV antibiotic as per ID plan is to complete antibiotic on 25 October 2022 We will discharge patient home after that with Black in place Plan is to follow-up with urology outpatient This was explained to patient's daughter Continue with current medications Fall precaution 10/24/2022 Stable, POC glucose 154 Patient with Black to gravity, tolerating p.o. intake Nephro is following. On tamsulosin p.o. Continue pain control, glycemic control, fall precaution Continue medications and present care 10/25/2022 Hypoglycemia 7.8 Blood culture shows no growth after 5 days Patient has no new complaints Black to gravity with good urine output. Nephro is following Consultants evaluations noted still on tamsulosin p.o. Continue pain control, glycemic control Fall precaution, continue medications and supportive care at 2225 at 0830 RPT #:[id number] END OF REPORT [facility] 2022-10-26 13:41:00 [facility] Nephrology Progress Note REPORT#:[id number] REPORT STATUS: Signed DATE:10/26/22 TIME: 1340 PATIENT: MATHEW CASTILLO UNIT #: [id number] ROOM/BED: [place] [address] : 58 AGE: 62 SEX: M ATTEND: Salinas Alba MD ADM AUTHOR: Carmen Kemp * ALL edits or amendments must be made on the electronic/computer document Carmen Zamora 10/26/22 1341: Subjective Chief complaint: Concern for ruptured ureter HPI: The patient seen and examined. Resting in bed, tolerating PO intake w/o any issue. Black to gravity, good UOP. Review of Systems [...] 24 Hrs Cholecalciferol (VITAMIN D) 1,000 INTL.UNITS DAILY PO [...] imported from the dietitian's assessment. BMI Calculated: 22.1 Nutrition related diagnosis: Nutrition diagnosis details: Nutrition problem: Nutrition etiology: Nutrition signs and symptoms: Nutrition prescription: Dietitian name: Assessment completed: Physical Exam General appearance: alert, awake, no acute distress Head/eyes: atraumatic, clear cornea, normal conjunctiva/sclera, normocephalic ENT: normal nose Neck: supple/no meningismus Cardiovascular: normal heart sounds Respiratory: decreased breath sounds, wheezes, aerating well, no distress Abdomen: non-tender, soft Genitourinary: [...] CHANDRA (Resolved) -Renal function improved and wnl, black to gravity, s/p bicarb gtt. -2/2 post-obstrucitve uropathy, monitor for post-obstructive diuresis. -UA, urine lytes requested and noted, no significant proteinuria. -Per Urology note: Reportedly the patient had 3L of urine in his bladder. CT abdomen from [facility] showed that the patient has a very [...] resolved with catheter placement. This can be managed conservatively. The patient will follow up as an outpatient. -Avoid nephrotoxicity monitor renal function and UOP Hypokalemia/Hypocalcemia/Hypomagnesemia -Vitamin D deficiency, vitamin D supplement. -Monitor for post-obstructive diuresis and electrolyte imbalance Urinary Retention/BPH -Black to gravity, Urology following, on Tamsulosin -Per Urology note: Reportedly the patient had 3L of urine in his bladder. CT abdomen from [place] showed that the patient has a very [...] resolved with catheter placement. This can be managed [...] patient's nurse and Dr. Koehler. Toby Koehler 10/26/221811: Attestations Physician Attestation Reviewed findings plan: Patient examined Renal function improved and wnl, black to gravity, -2/2 post-obstrucitve uropathy, replace electrolytes as needed, S/P antibiotics continue flomax, Agree with above A/P at 1342 at 1813 RPT #:[id number] END OF REPORT [facility] 2022-10-25 21:28:00 [facility] ([facility]) Infectious Dis. Progress Note REPORT#:[id number] REPORT STATUS: Signed DATE:10/25/22 TIME: 2127 PATIENT: MATHEW CASTILLO UNIT #: [id number] ROOM/BED: [address]: [address] AGE: 62 SEX: M ATTEND: Salinas Alba MD ADM AUTHOR: Skip Jaffe MD * ALL edits or amendments must be made on the electronic/computer document * Subjective Internal record Patient examined, [...] lower extremities. Fluctuating leukocytosis likely secondary to noninfectious causes. IV antibiotics discontinued. Closely monitor for any new nosocomial acquired infection. at 0256 RPT #:[id number] END OF REPORT [facility] 2022-10-25 19:13:00 [facility] Nephrology Progress Note REPORT#:[id number] REPORT STATUS: Signed DATE:10/25/22 TIME: 1912 PATIENT: MATHEW CASTILLO UNIT #: [id number] ROOM/BED: [place] [address] : 59 AGE: 62 SEX: M ATTEND: Salinas Alba MD ADM AUTHOR: Toby Koehler MD * ALL edits or amendments must be made on the electronic/computer document * Subjective Chief complaint: Concern for ruptured ureter HPI: The patient seen and examined. Resting in bed, tolerating PO intake w/o any issue. Black to gravity, good UOP. Objective General VS/I [...] 100 ML Cholecalciferol (VITAMIN D) 1,000 INTL.UNITS DAILY PO [...] awake, oriented Head/eyes: atraumatic, clear cornea, normal conjunctiva/sclera, normocephalic ENT: normal nose Neck: supple/no meningismus Cardiovascular: normal heart sounds Respiratory: decreased breath sounds, wheezes, aerating well, no distress Abdomen: non-tender, soft Genitourinary: [...] (Auto) (14.0 - 32.0 %) 10.6 L [place] % (Auto) (4.8 - 9.0 %) 4.4 L Eos % (Auto) (0.3 - 3.7 %) 2.4 Baso % (Auto) (0.0 - 2.0 %) 0.5 Neut # (Auto) (2.0 - 7.6 x10 3/uL) 12.30 H Lymph # (Auto) (1.0 - 3.8 x10 3/uL) 1.60 [place] # (Auto) (0.1 - 0.8 x10 3/uL) [...] 3/uL) 0.00 Diagnosis, Assessment Plan Free Text A P: Assessment and Plan: CHANDRA (Resolved) -Renal function improved and wnl, black to gravity, s/p bicarb gtt. -2/2 post-obstrucitve uropathy, monitor for post-obstructive diuresis. -UA, urine lytes requested and noted, no significant proteinuria. -Per Urology note: Reportedly the patient had 3L of urine in his bladder. CT abdomen from [place] showed that the patient has a very [...] resolved with catheter placement. This can be managed conservatively. The patient will follow up as an outpatient. -Avoid nephrotoxicity monitor renal function and UOP Hypokalemia/Hypocalcemia/Hypomagnesemia -Vitamin D deficiency, vitamin D supplement. -Monitor for post-obstructive diuresis and electrolyte imbalance Urinary Retention/BPH -Black to gravity, Urology following, on Tamsulosin -Per Urology note: Reportedly the patient had 3L of urine in his bladder. CT abdomen from [place] showed that the patient has a very [...] resolved with catheter placement. This can be managed conservatively. The patient will follow up as an outpatient. HTN -BP acceptable, monitor, on PRN IV hydralazine Schizophrenia -Home medications resumed Fever -Low grade fever on 10/19/22, blood cx (10/20/22): NGTD, B/L LE venous doppler (): Negative for DVT, on empiric abx per primary team. at 1914 RPT #:[id number] END OF REPORT [facility] 2022-10-25 19:12:00 [facility] Internal Medicine Prog. Note REPORT#:[id number] REPORT STATUS: Signed DATE:10/25/22 TIME: 1911 PATIENT: MATHEW CASTILLO UNIT #: [id number] ROOM/BED: [place] [address] : 58 AGE: 62 SEX: M ATTEND: Salinas Alba MD ADM AUTHOR: Sofia Cheng NP * ALL edits or amendments must be made on the electronic/computer document * Subjective Chief complaint: Abdominal distention, hydronephrosis HPI: 62-year-old male with last medical history of, BPH, transferred from [place] for urology evaluation and treatment secondary to possible ruptured ureter. As per patient his abdomen was distended for at least for 2 days and he was having difficulty urinating. Patient presented to outside facilityImaging revealed severe bilateral hydronephrosis with evidence of active urine extravasation and large amount of urine in the bladder pushing all the way up to the abdomen. As per patient's daughter about 3 L of fluid was removed within 10 minutes of Black insertion. Patient reports he has been experiencing urinary hesitancy for the past 2 to 3 years. Denies seeing a urologist. Patient denies fever, chills, dysuria, hematuria, or other associated symptoms. Patient denies shortness of breath, chest pain, nausea, vomiting, diarrhea, constipation. Admission vital signs blood pressure 146/78, pulse 92, respiration 18, temperature 37.1, O2 sat 96% on room air. Abnormal labs: Hemoglobin 10.9, hematocrit 31.7, potassium 2.8, chloride 114, [...] ideation, hostile, insomnia, stress, suicidal ideation. Objective General VS/I O: [...] 100 ML Cholecalciferol (VITAMIN D) 1,000 INTL.UNITS DAILY PO [...] AC HS SUBQ Results Findings/Data: Laboratory Tests 10/25/22419: [Embedded Image Not Available] Laboratory Tests 10/25 10/25 10/25 10/25 10/24 [...] - 10.5 mg/dL) 7.8 L Laboratory Tests 10/26 419 Hematology WBC (4.5 - 11.0 x10 3/uL) [...] (Auto) (14.0 - 32.0 %) 10.6 L [place] % (Auto) (4.8 - 9.0 %) 4.4 L Eos % (Auto) (0.3 - 3.7 %) 2.4 Baso % (Auto) (0.0 - 2.0 %) 0.5 Neut # (Auto) (2.0 - 7.6 x10 3/uL) 12.30 H Lymph # (Auto) (1.0 - 3.8 x10 3/uL) 1.60 [place] # (Auto) (0.1 - 0.8 x10 3/uL) [...] 0.1 x10 3/uL) 0.00 Diagnosis, Assessment Plan Hospital course to date: General appearance: alert, awake Head/Eyes: atraumatic, clear cornea, EOMI, normocephalic, normal conjunctiva/ sclera, normal eyelids/periorb, PERRLA ENT: normal dentition, normal ear left, normal ear right, normal nose, normal pharynx, normal sinus Cardiovascular: regular rate rhythm Respiratory: decreased breath sounds, clear to auscultation, no distress, no tenderness Abdomen/GI: active bowel sounds, soft Abdomen quadrants: LLQ normal bowel sounds, LLQ tenderness, LUQ normal bowel sounds, RLQ normal bowel sounds, RLQ tenderness, RUQ normal bowel sounds Genitourinary: black Extremities: moves all, no edema-all extremities, normal capillary refill, normal range of motion, normal sensory, normal motor function 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 Rupture of ureter Free Text DxA P Notes Free text DxA P notes: Assessment: 62-year-old male with last medical history of, BPH, transferred from [place] for urology evaluation and treatment secondary to possible ruptured ureter. As per patient his abdomen was distended for at least for 2 days and he was having difficulty urinating. Patient presented to outside facilityImaging revealed severe bilateral hydronephrosis with evidence of active urine extravasation and large amount of urine in the bladder pushing all the way up to the abdomen. As per patient's daughter about 3 L of fluid was removed within 10 minutes of Black insertion. Patient reports he has been experiencing urinary hesitancy for the past 2 to 3 years. 1. Abdominal distention, severe bilateral hydronephrosis, large amount of urinary retention -Status post Black insertion large amount of urine was obtained 2. Acute kidney injury 3. Hypokalemia/hypocalcemia, hyperchloremia 4. Metabolic acidosis 5. Possible BPH 6. Severe bilateral hydronephrosis 7. Hypertension 8. Schizophrenia Plan of care: Admit patient for further evaluation and treatment Urology consultation in place Keep Black to bedside drainage I's and O's Monitor renal function Nephrology consultation Replace electrolytes Start tamsulosin Bicarb drip started Repeat CT of the abdomen and pelvis if needed Repeat labs Further recommendation based on patient's clinical course 10/17/2022 Vital signs within normal limits Hypokalemia 3.2, hypomagnesemia 1.50 Renal function is improved, discontinue bicarb drip, continue electrolyte control-replace as needed per nephro Urology is following Continue tamsulosin BP control-on hydralazine as needed, pain control Continue telemetry monitoring, intake and output, fall precaution Follow-up labs, continue medications and supportive care 10/18/2022 BP is controlled Hypocalcemia 7.4, hypomagnesemia 1.5, Hypokalemia 3.1 MRSA surveillance screen pending results Uro and Nephro are following Started on cholecalciferol p.o., still on tamsulosin Electrolyte control- magnesium and potassium replaced Fall precaution Follow-up labs, continue medications and supportive care 10/19/2022 Vital signs within normal limits, [...] X-ray of the chest shows mild interstitial pulmonary edema. No focal consolidation. Consultants evaluations noted Electrolyte control replace magnesium Started on IV antibiotic Zosyn Consult placed to Dr. Jaffe for patients UTI Troponin I Blood precaution, glycemic control Follow-up EKG, labs, continue medications and supportive care 10/21/2022 POC glucose is controlled D-dimer 5949 Hypokalemia 3.0, hypomagnesemia 1.50, hypocalcemia 7.3 Blood culture shows no growth after 48 hours ECG: Normal sinus rhythm No evidence of deep vein thrombosis ID has seen the patient. Continue empiric IV antibiotics-Zosyn, tamsulosin p.o. for now. Continue electrolyte control replace potassium and magnesium Pain control, glycemic control Follow-up electrolytes and labs, continue medications and present 10/22/2022 Vital signs within normal limits, POC glucose is controlled Hypocalcemia 7.8, hypomagnesemia 1.72 No sonographic evidence for DVT Blood culture shows no growth after 48 hours Patient with good urine output, renal function is improved, patient will follow- up as an outpatient Still on IV antibiotic Zosyn, tamsulosin p.o. Continue electrolyte control-replace magnesium Continue pain control, glycemic control Follow-up labs, continue medications and supportive care October 23, 2022: Continue IV antibiotic as per ID plan is to complete antibiotic on 25 October 2022 We will discharge patient home after that with Black in place Plan is to follow-up with urology outpatient This was explained to patient's daughter Continue with current medications Fall precaution 10/24/2022 Stable, POC glucose 154 Patient with Black to gravity, tolerating p.o. intake Nephro is following. On tamsulosin p.o. Continue pain control, glycemic control, fall precaution Continue medications and present care 10/25/2022 Hypoglycemia 7.8 Blood culture shows no growth after 5 days Patient has no new complaints Black to gravity with good urine output. Nephro is following Consultants evaluations noted still on tamsulosin p.o. Continue pain control, glycemic control Fall precaution, continue medications and supportive care at 2224 at 6277 [facility] #:[id number] END OF REPORT [facility] 2022-10-25 10:44:00 [id number] [place] [address] PATIENT NAME: MATHEW CASTILLO ADMIT DATE: 10/16/22 ACCOUNT NO: [id number] [place] [facility] [place] 62 REPORT TYPE: PROGRESS NOTE SEX: M ADMITTING PHYSICIAN:Salinas Alba MD ATTENDING PHYSICIAN:Salinas Alba MD DATE: 10/24/2022 SUBJECTIVE: The patient examined. Chart reviewed. Events of last 24 hours noted. The patient clinically is doing fair. He remains awake and alert. Denies any new complaints. Remains afebrile. No nausea, vomiting reported. No diarrhea reported. He is ambulating within the room. CURRENT MEDICATIONS: Include benztropine, cholecalciferol, lispro insulin, tamsulosin, haloperidol, Zosyn IV, Tylenol p.r.n., docusate sodium p.r.n., glucagon p.r.n., hydrocodone bitartrate p.r.n., hydralazine p.r.n., ondansetron p.r.n. PHYSICAL EXAMINATION: GENERAL: The patient is resting comfortably in bed. He is awake and alert, does not appear to be toxic, does not appear to be in any acute distress. VITAL SIGNS: Temperature maximum in last 24 hours is 37.0 degrees Celsius. Current temperature is 37.1 degrees Celsius, blood pressure is 118/70, respirations 16 per minute, pulse is 80 per minute. The patient's weight is around 68 kg. HEENT: Head is atraumatic and normocephalic. Pupils are equal, round and reacting to light and accommodation bilaterally. Extraocular movements are intact. Oropharynx is clear. Oral hygiene is fair. NECK: Supple. JVD is absent. No carotid bruit, thyromegaly, or cervical lymphadenopathy. LUNGS: There is fair air entry bilaterally. CARDIOVASCULAR: S1, S2 audible. No murmur, gallop, S3 or S4 appreciated. ABDOMEN: Soft and slightly bulging. The patient has mild suprapubic area tenderness. No hepatosplenomegaly. Bowel sounds are normoactive. Has minimal tenderness at the renal angles bilaterally. GENITOURINARY: The patient has indwelling Black catheter in place. The catheter appears to be working fine and has clear urine and being drained into the bag. EXTREMITIES: Both calves are soft. No calf tenderness. No pedal edema. Peripheral pulses are faintly palpable bilaterally. SKIN: The patient's peripheral IV sites are clean without any evidence of phlebitis. The lower abdominal discomfort has improved. He has an indwelling Black catheter in place. LABORATORY DATA: No new laboratory studies available to review for today. The patient's blood cultures x2 done on October 20 are negative so far at 4 days of incubation. ASSESSMENT AND PLAN: The patient with multiple comorbidities including PATIENT NAME: MATHEW CASTILLO prostatic symptoms for over 2 years, was admitted through Emergency Room initially to hospital in [place] with urinary retention of 2 days' duration and was found to have some extravasation of urine in the peritoneal cavity. The patient was treated with IV antibiotics and had a Black catheter inserted and about 3 liters of urine was drained and the Black was left in place and he was transferred to [facility] for urology evaluation. The patient was evaluated by Dr. Dave He and is being managed conservatively at the present time. The patient initially showed improvement in his condition and subsequently he had developed low-grade temperature and marked leukocytosis of around 19,000. He had his antibiotics changed to IV Zosyn. Clinically, he never looked toxic and there is a possibility that fever and leukocytosis could have been secondary to noninfectious causes. He had further workup done and was found to have elevated D-dimer; however, bilateral lower extremity venous Doppler studies were negative for deep vein thrombosis. The patient otherwise remains hemodynamically stable and he is making progress, continues to be afebrile. He is due to finish his antibiotics tomorrow. We will for now, keep him on the antibiotic and if his blood cultures are negative after 5 days of incubation, then we will consider discontinuation of his antibiotics tomorrow. Discussed with the patient's nursing staff. Dictated By: Skip Jaffe MD Date Dictated: 10/25/2022 10:44:58 Date Transcribed: 10/25/2022 11:24:45 LAURA Receipt ID: [id number] Authenticated and Edited by Skip Jaffe MD On 11/02/22 2:23:50 AM at 0323 PATIENT NAME: MATHEW CASTILLO [facility] 2022-10-24 22:59:00 [facility] Internal Medicine Prog. Note REPORT#:[id number] REPORT STATUS: Signed DATE:10/24/22 TIME: 2258 PATIENT: MATHEW CASTILLO UNIT #: [id number] ROOM/BED: [place] [address] : 59 AGE: 62 SEX: M ATTEND: Salinas Alba MD ADM AUTHOR: Sofia Cheng NP * ALL edits or amendments must be made on the electronic/computer document * Subjective Chief complaint: Abdominal distention, hydronephrosis HPI: 62-year-old male with last medical history of, BPH, transferred from [place] for urology evaluation and treatment secondary to possible ruptured ureter. As per patient his abdomen was distended for at least for 2 days and he was having difficulty urinating. Patient presented to outside facilityImaging revealed severe bilateral hydronephrosis with evidence of active urine extravasation and large amount of urine in the bladder pushing all the way up to the abdomen. As per patient's daughter about 3 L of fluid was removed within 10 minutes of Black insertion. Patient reports he has been experiencing urinary hesitancy for the past 2 to 3 years. Denies seeing a urologist. Patient denies fever, chills, dysuria, hematuria, or other associated symptoms. Patient denies shortness of breath, chest pain, nausea, vomiting, diarrhea, constipation. Admission vital signs blood pressure 146/78, pulse 92, respiration 18, temperature 37.1, O2 sat 96% on room air. Abnormal labs: Hemoglobin 10.9, hematocrit 31.7, potassium 2.8, chloride 114, [...] ideation, hostile, insomnia, stress, suicidal ideation. Objective General VS/I O: Laboratory Tests 10/23/22 0623: [Embedded Image Not Available] Chemistry: 10/24 10/24 10/24 1951 1652 0721 Chemistry POC Glucose (70 - 110 MG/DL) 154 H 73 87 Home Medications: Medication Dose/Rte/Freq Days Qty Entered Last Max Daily Dose Reviewed BENZTROPINE 1 MG PO DAILY 10/16/22 10/16/22 Strength: 0.5 MG TAB 0923 0925 HALOPERIDOL (HALDOL) 10 MG PO BID 10/16/22 10/16/22 Strength: 10 MG TAB 0925 0925 Current Hospital Medications: Anti-Infective Agents Sig/Mark Start time Last Medication Dose Route Stop Time Status Admin Piperacillin Sod/ 3.375 GM Q8H 10/20 010 AC 10/24 Tazobactam Sod IV 10/25 0059 [...] SUBQ 11/15 1129 2228 Recent Impressions-Last 72 Hrs CAT SCAN - CTA CHEST FOR PE 10/23 [...] alert, awake Head/Eyes: atraumatic, clear cornea, EOMI, normocephalic, normal conjunctiva/ sclera, normal eyelids/periorb, PERRLA ENT: normal dentition, normal ear left, normal ear right, normal nose, normal pharynx, normal sinus Cardiovascular: regular rate rhythm Respiratory: decreased breath sounds, clear to auscultation, no distress, no tenderness Abdomen/GI: active bowel sounds, soft Abdomen quadrants: LLQ normal bowel sounds, LLQ tenderness, LUQ normal bowel sounds, RLQ normal bowel sounds, RLQ tenderness, RUQ normal bowel sounds Genitourinary: black Extremities: moves all, no edema-all extremities, normal capillary refill, normal range of motion, normal sensory, normal motor function 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 Rupture of ureter Free Text DxA P Notes Free text DxA P notes: Assessment: 62-year-old male with last medical history of, BPH, transferred from [place] for urology evaluation and treatment secondary to possible ruptured ureter. As per patient his abdomen was distended for at least for 2 days and he was having difficulty urinating. Patient presented to outside facilityImaging revealed severe bilateral hydronephrosis with evidence of active urine extravasation and large amount of urine in the bladder pushing all the way up to the abdomen. As per patient's daughter about 3 L of fluid was removed within 10 minutes of Black insertion. Patient reports he has been experiencing urinary hesitancy for the past 2 to 3 years. 1. Abdominal distention, severe bilateral hydronephrosis, large amount of urinary retention -Status post Black insertion large amount of urine was obtained 2. Acute kidney injury 3. Hypokalemia/hypocalcemia, hyperchloremia 4. Metabolic acidosis 5. Possible BPH 6. Severe bilateral hydronephrosis 7. Hypertension 8. Schizophrenia Plan of care: Admit patient for further evaluation and treatment Urology consultation in place Keep Black to bedside drainage I's and O's Monitor renal function Nephrology consultation Replace electrolytes Start tamsulosin Bicarb drip started Repeat CT of the abdomen and pelvis if needed Repeat labs Further recommendation based on patient's clinical course 10/17/2022 Vital signs within normal limits Hypokalemia 3.2, hypomagnesemia 1.50 Renal function is improved, discontinue bicarb drip, continue electrolyte control-replace as needed per nephro Urology is following Continue tamsulosin BP control-on hydralazine as needed, pain control Continue telemetry monitoring, intake and output, fall precaution Follow-up labs, continue medications and supportive care 10/18/2022 BP is controlled Hypocalcemia 7.4, hypomagnesemia 1.5, Hypokalemia 3.1 MRSA surveillance screen pending results Uro and Nephro are following Started on cholecalciferol p.o., still on tamsulosin Electrolyte control- magnesium and potassium replaced Fall precaution Follow-up labs, continue medications and supportive care 10/19/2022 Vital signs within normal limits, [...] X-ray of the chest shows mild interstitial pulmonary edema. No focal consolidation. Consultants evaluations noted Electrolyte control replace magnesium Started on IV antibiotic Zosyn Consult placed to Dr. Jaffe for patients UTI Troponin I Blood precaution, glycemic control Follow-up EKG, labs, continue medications and supportive care 10/21/2022 POC glucose is controlled D-dimer 5949 Hypokalemia 3.0, hypomagnesemia 1.50, hypocalcemia 7.3 Blood culture shows no growth after 48 hours ECG: Normal sinus rhythm No evidence of deep vein thrombosis ID has seen the patient. Continue empiric IV antibiotics-Zosyn, tamsulosin p.o. for now. Continue electrolyte control replace potassium and magnesium Pain control, glycemic control Follow-up electrolytes and labs, continue medications and present 10/22/2022 Vital signs within normal limits, POC glucose is controlled Hypocalcemia 7.8, hypomagnesemia 1.72 No sonographic evidence for DVT Blood culture shows no growth after 48 hours Patient with good urine output, renal function is improved, patient will follow- up as an outpatient Still on IV antibiotic Zosyn, tamsulosin p.o. Continue electrolyte control-replace magnesium Continue pain control, glycemic control Follow-up labs, continue medications and supportive care October 23, 2022: Continue IV antibiotic as per ID plan is to complete antibiotic on 25 October 2022 We will discharge patient home after that with Black in place Plan is to follow-up with urology outpatient This was explained to patient's daughter Continue with current medications Fall precaution 10/24/2022 Stable, POC glucose 154 Patient with Black to gravity, tolerating p.o. intake Nephro is following. On tamsulosin p.o. Continue pain control, glycemic control, fall precaution Continue medications and present care at 2223 at 0830 RPT #:[id number] END OF REPORT [facility] 2022-10-24 19:41:00 [facility] ([facility]) Infectious Dis. Progress Note REPORT#:[id number] REPORT STATUS: Signed DATE:10/24/22 TIME: 1940 PATIENT: MATHEW CASTILLO UNIT #: [id number] ROOM/BED: [address] : 58 AGE: 62 SEX: M ATTEND: Salinas Alba MD ADM AUTHOR: Skip Jaffe MD * ALL edits or amendments must be made on the electronic/computer document * Subjective Internal record Patient examined, [...] closely for any diarrhea. at 0316 RPT #:[id number] END OF REPORT [facility] 2022-10-24 19:12:00 [id number] [address] PATIENT NAME: MATHEW CASTILLO ADMIT DATE: 10/16/22 ACCOUNT NO: [id number] [place] [facility] [place] 62 REPORT TYPE: PROGRESS NOTE SEX: M ADMITTING PHYSICIAN:Salinas Alba MD ATTENDING PHYSICIAN:Salinas Alba MD DATE: 10/23/2022 SUBJECTIVE: The patient examined. Chart reviewed. Events of last 24 hours noted. The patient clinically is not much changed. Remains awake and alert. No new issues reported. Remains afebrile. No nausea or vomiting reported. No diarrhea reported. The patient clinically remains hemodynamically otherwise stable. CURRENT MEDICATIONS: Include benztropine, cholecalciferol, lispro insulin, tamsulosin, haloperidol, Zosyn IV, Tylenol p.r.n., docusate sodium p.r.n., glucagon p.r.n., hydrocodone bitartrate p.r.n., hydralazine p.r.n., ondansetron p.r.n. PHYSICAL EXAMINATION: GENERAL: The patient is resting comfortably in bed. He is awake and alert, does not appear to be toxic, does not appear to be in any acute distress. VITAL SIGNS: Temperature maximum in last 24 hours is 37.0 degrees Celsius. Current temperature is 37.1 degrees Celsius, blood pressure is 118/70, respirations 16 per minute, pulse is 80 per minute. The patient's weight is around 68 kg. HEENT: Head is atraumatic and normocephalic. Pupils are equal, round and reacting to light and accommodation bilaterally. Extraocular movements are intact. Oropharynx is clear. Oral hygiene is fair. NECK: Supple. JVD is absent. No carotid bruit, thyromegaly, or cervical lymphadenopathy. LUNGS: There is fair air entry bilaterally. CARDIOVASCULAR: S1, S2 audible. No murmur, gallop, S3 or S4 appreciated. ABDOMEN: Soft and slightly bulging. The patient has mild suprapubic area tenderness. No hepatosplenomegaly. Bowel sounds are normoactive. Has minimal tenderness at the renal angles bilaterally. GENITOURINARY: The patient has indwelling Black catheter in place. The catheter appears to be working fine and has clear urine and being drained into the bag. EXTREMITIES: Both calves are soft. No calf tenderness. No pedal edema. Peripheral pulses are faintly palpable bilaterally. SKIN: The patient's peripheral IV sites are clean without any evidence of phlebitis. The lower abdominal discomfort has improved. LABORATORY DATA: Serum sodium is 138, potassium 3.8, chloride 107, bicarbonate 29, glucose 98. BUN 11, creatinine 1.0, estimated GFR is 85, calcium is 7.6, magnesium 1.53. CT angiogram of chest with PE protocol done today shows no evidence of pulmonary PATIENT NAME: MATHEW CASTILLO embolism, extensive colonic wall thickening of the visualized splenic flexure. Blood cultures are negative so far at 3 days of incubation. ASSESSMENT AND PLAN: The patient with multiple medical problems was initially admitted to hospital in [place] where he had presented with urinary retention. The patient was found to have 3 liters of urine in the bladder. He had a Black catheter inserted and subsequently was transferred to [facility] for urology evaluation. He was initially treated with IV ceftriaxone, but more recently, he started to have fever and high leukocytosis. He had blood cultures done and was empirically switched to IV Zosyn. His blood cultures so far have been negative. Clinically, he has made progress. His D-dimer was found to be elevated; however, bilateral lower extremity venous Doppler studies were negative and his CT of chest with PE protocol is also negative. The patient clinically remains hemodynamically stable. He will be continued on IV Zosyn until 10/25/2022. Discussed with the patient's nursing staff. Dictated By: Skip Jaffe MD Date Dictated: 10/24/2022 19:12:07 Date Transcribed: 10/24/2022 19:51:44 /GLORIA Receipt ID: [id number] Authenticated and Edited by Skip Jaffe MD On 11/02/22 2:23:34 AM at 0323 PATIENT NAME: MATHEW CASTILLO [facility] 2022-10-24 16:08:00 [facility] ([facility]) Nephrology Progress Note REPORT#:[id number] REPORT STATUS: Signed DATE:10/24/22 TIME: 1608 PATIENT: MATHEW CASTILLO UNIT #: [id number] ROOM/BED: 6630-1 : 59 AGE: 62 SEX: M ATTEND: Salinas Alba MD ADM AUTHOR: Carmen Kemp * ALL edits or amendments must be made on the electronic/computer document * Carmen Kemp 10/24/22 1608: Subjective Chief complaint: Concern for ruptured ureter HPI: The patient seen and examined. Resting in bed, tolerating PO intake w/o any issue. Black to gravity, good UOP. Review of Systems [...] 100 ML Cholecalciferol (VITAMIN D) 1,000 INTL.UNITS DAILY PO [...] imported from the dietitian's assessment. BMI Calculated: 22.1 Nutrition related diagnosis: Nutrition diagnosis details: Nutrition problem: Nutrition etiology: Nutrition signs and symptoms: Nutrition prescription: Dietitian name: Assessment completed: Physical Exam General appearance: alert, awake, no acute distress Head/eyes: atraumatic, clear cornea, normal conjunctiva/sclera, normocephalic ENT: normal nose Neck: supple/no meningismus Cardiovascular: normal heart sounds Respiratory: decreased breath sounds, wheezes, aerating well, no distress Abdomen: non-tender, soft Genitourinary: urinary catheter, urine Extremities: no edema Results Findings/Data: Laboratory Tests 10/24 10/23 0721 1956 Chemistry POC Glucose (70 - 110 MG/DL) 87 139 H Diagnosis, Assessment Plan Free Text A P: Assessment and Plan: CHANDRA (Resolved) -Renal function improved and wnl, black to gravity, s/p bicarb gtt. -2/2 post-obstrucitve uropathy, monitor for post-obstructive diuresis. -UA, urine lytes requested and noted, no significant proteinuria. -Per Urology note: Reportedly the patient had 3L of urine in his bladder. CT abdomen from [place] showed that the patient has a very [...] resolved with catheter placement. This can be managed conservatively. The patient will follow up as an outpatient. -Avoid nephrotoxicity monitor renal function and UOP Hypokalemia/Hypocalcemia/Hypomagnesemia -Vitamin D deficiency, vitamin D supplement. -Monitor for post-obstructive diuresis and electrolyte imbalance Urinary Retention/BPH -Black to gravity, Urology following, on Tamsulosin -Per Urology note: Reportedly the patient had 3L of urine in his bladder. CT abdomen from [place] showed that the patient has a very [...] resolved with catheter placement. This can be managed [...] patient, patient's nurse, and . Toby Koehler 10/24/222124: Attestations Physician Attestation Reviewed findings plan: Patient examined Renal function improved and wnl, black to gravity, -2/2 post-obstrucitve uropathy, replace electrolytes as needed, emperic antibiotics per admitting team, agree with above A/P at 1740 at 9233 RPT #:[id number] END OF REPORT [facility] 2022-10-23:33:00 [facility] [place] [facility]) Internal Medicine Prog. Note REPORT#:[id number] REPORT STATUS: Signed DATE:10/23/22 TIME: 2132 PATIENT: MATHEW CASTILLO UNIT #: [id number] ROOM/BED: 66301 : 59 AGE: 62 SEX: M ATTEND: Salinas Alba MD ADM AUTHOR: Sofia Cheng NP * ALL edits or amendments must be made on the electronic/computer document * Subjective Chief complaint: Abdominal distention, hydronephrosis HPI: 62-year-old male with last medical history of, BPH, transferred from [place] for urology evaluation and treatment secondary to possible ruptured ureter. As per patient his abdomen was distended for at least for 2 days and he was having difficulty urinating. Patient presented to outside facilityImaging revealed severe bilateral hydronephrosis with evidence of active urine extravasation and large amount of urine in the bladder pushing all the way up to the abdomen. As per patient's daughter about 3 L of fluid was removed within 10 minutes of Black insertion. Patient reports he has been experiencing urinary hesitancy for the past 2 to 3 years. Denies seeing a urologist. Patient denies fever, chills, dysuria, hematuria, or other associated symptoms. Patient denies shortness of breath, chest pain, nausea, vomiting, diarrhea, constipation. Admission vital signs blood pressure 146/78, pulse 92, respiration 18, temperature 37.1, O2 sat 96% on room air. Abnormal labs: Hemoglobin 10.9, hematocrit 31.7, potassium 2.8, chloride 114, [...] ideation, hostile, insomnia, stress, suicidal ideation. Objective General VS/I O: Laboratory Tests 10/23 1622 1133 0825 0623 Chemistry [...] - 2.40 mg/dL) 1.53 L 10/22 1700 1115 0749 0637 Chemistry Sodium (134 - 147 mEq/L) [...] 10/23 1725 DC 10/23 IV 10/23 1726 1725 Enoxaparin Sodium 70 MG ONCE ONE 10/23 1630 DC 10/23 SUBQ 10/23 1631 1750 Magnesium Sulfate 100 ML ONCE ONE 10/23 1330 DC 10/23 IV 10/23 1729 1641 Piperacillin Sod/ 3.375 GM Q8H 10/20 0100 AC 10/23 Tazobactam Sod IV 10/25 0059 1750 Sodium Chloride 100 ML Cholecalciferol 1,000 INTL.UNITS DAILY 10/18 0900 CKD 10/23 PO 11/17 0859 0932 Tamsulosin HCl 0.4 MG PC DIN 10/16 1800 AC 10/23 PO 11/15 1759 1750 Acetaminophen 650 MG [...] 10/16 1330 AC 10/23 PO 11/15 1329 0932 Dextrose/Water 125 ML [...] for DVT Impression By: [id number] Mikaela Ac M.D. CAT SCAN - CTA CHEST FOR PE [...] 108/67 10/23 1900 B/P Mean 80.5 10/23 1899 O2 Delivery Room air 10/23 1899 Temp 37.1 10/23 1899 Pulse 69 10/23 1899 Resp 16 10/23 1899 24 hour I O ending at 0700: 10/23 0710/22 Intake Total 870 Output Total 1100 Balance -230 Intake, Oral 870 Number 1 Bowel Movements Output, Urine 1100 PATIENT WEIGHT: Weight (lb): Weight (oz): Weight (kg): 68.000 Diagnosis, Assessment Plan Hospital course to date: General appearance: alert, awake Head/Eyes: atraumatic, clear cornea, EOMI, normocephalic, normal conjunctiva/ sclera, normal eyelids/periorb, PERRLA ENT: normal dentition, normal ear left, normal ear right, normal nose, normal pharynx, normal sinus Cardiovascular: regular rate rhythm Respiratory: decreased breath sounds, clear to auscultation, no distress, no tenderness Abdomen/GI: active bowel sounds, soft Abdomen quadrants: LLQ normal bowel sounds, LLQ tenderness, LUQ normal bowel sounds, RLQ normal bowel sounds, RLQ tenderness, RUQ normal bowel sounds Genitourinary: black Extremities: moves all, no edema-all extremities, normal capillary refill, normal range of motion, normal sensory, normal motor function 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 Rupture of ureter Free Text DxA P Notes Free text DxA P notes: Assessment: 62-year-old male with last medical history of, BPH, transferred from [place] for urology evaluation and treatment secondary to possible ruptured ureter. As per patient his abdomen was distended for at least for 2 days and he was having difficulty urinating. Patient presented to outside facilityImaging revealed severe bilateral hydronephrosis with evidence of active urine extravasation and large amount of urine in the bladder pushing all the way up to the abdomen. As per patient's daughter about 3 L of fluid was removed within 10 minutes of Black insertion. Patient reports he has been experiencing urinary hesitancy for the past 2 to 3 years. 1. Abdominal distention, severe bilateral hydronephrosis, large amount of urinary retention -Status post Black insertion large amount of urine was obtained 2. Acute kidney injury 3. Hypokalemia/hypocalcemia, hyperchloremia 4. Metabolic acidosis 5. Possible BPH 6. Severe bilateral hydronephrosis 7. Hypertension 8. Schizophrenia Plan of care: Admit patient for further evaluation and treatment Urology consultation in place Keep Black to bedside drainage I's and O's Monitor renal function Nephrology consultation Replace electrolytes Start tamsulosin Bicarb drip started Repeat CT of the abdomen and pelvis if needed Repeat labs Further recommendation based on patient's clinical course 10/17/2022 Vital signs within normal limits Hypokalemia 3.2, hypomagnesemia 1.50 Renal function is improved, discontinue bicarb drip, continue electrolyte control-replace as needed per nephro Urology is following Continue tamsulosin BP control-on hydralazine as needed, pain control Continue telemetry monitoring, intake and output, fall precaution Follow-up labs, continue medications and supportive care 10/18/2022 BP is controlled Hypocalcemia 7.4, hypomagnesemia 1.5, Hypokalemia 3.1 MRSA surveillance screen pending results Uro and Nephro are following Started on cholecalciferol p.o., still on tamsulosin Electrolyte control- magnesium and potassium replaced Fall precaution Follow-up labs, continue medications and supportive care 10/19/2022 Vital signs within normal limits, [...] X-ray of the chest shows mild interstitial pulmonary edema. No focal consolidation. Consultants evaluations noted Electrolyte control replace magnesium Started on IV antibiotic Zosyn Consult placed to Dr. Jaffe for patients UTI Troponin I Blood precaution, glycemic control Follow-up EKG, labs, continue medications and supportive care 10/21/2022 POC glucose is controlled D-dimer 5949 Hypokalemia 3.0, hypomagnesemia 1.50, hypocalcemia 7.3 Blood culture shows no growth after 48 hours ECG: Normal sinus rhythm No evidence of deep vein thrombosis ID has seen the patient. Continue empiric IV antibiotics-Zosyn, tamsulosin p.o. for now. Continue electrolyte control replace potassium and magnesium Pain control, glycemic control Follow-up electrolytes and labs, continue medications and present 10/22/2022 Vital signs within normal limits, POC glucose is controlled Hypocalcemia 7.8, hypomagnesemia 1.72 No sonographic evidence for DVT Blood culture shows no growth after 48 hours Patient with good urine output, renal function is improved, patient will follow- up as an outpatient Still on IV antibiotic Zosyn, tamsulosin p.o. Continue electrolyte control-replace magnesium Continue pain control, glycemic control Follow-up labs, continue medications and supportive care October 23, 2022: Continue IV antibiotic as per ID plan is to complete antibiotic on 25 October 2022 We will discharge patient home after that with Black in place Plan is to follow-up with urology outpatient This was explained to patient's daughter Continue with current medications Fall precaution at 0250 at 0842 RPT #:[id number] END OF REPORT [facility] 2022-10-23 18:51:00 [facility] ([facility]) Infectious Dis. Progress Note REPORT#:[id number] REPORT STATUS: Signed DATE:10/23/22 TIME: 1850 PATIENT: MATHEW CASTILLO UNIT #: [id number] ROOM/BED: [place] [address] : 59 AGE: 62 SEX: M ATTEND: Salinas Alba MD ADM AUTHOR: Skip Jaffe MD * ALL edits or amendments must be made on the electronic/computer document * Subjective Internal record Patient examined, [...] closely for any diarrhea. at 0256 RPT #:[id number] END OF REPORT [facility] 2022-10-23 18:27:00 [id number] [facility] [place] [id number] PATIENT NAME: MATHEW CASTILLO ADMIT DATE: 10/16/22 ACCOUNT NO: [id number] ROOM NO: G.6630 AGE: 62 REPORT TYPE: PROGRESS NOTE SEX: M ADMITTING PHYSICIAN:Salinas Alba MD ATTENDING PHYSICIAN:Salinas Alba MD DATE: 10/22/2022 SUBJECTIVE: The patient examined. Chart reviewed. Events of last 24 hours noted. The patient clinically is not much changed. He remains awake and alert. Resting comfortably in bed. Denies any new complaints. He is ambulating within the room. Remains afebrile. No nausea or vomiting reported. No diarrhea reported. Continues to have indwelling Black catheter in place. Remains afebrile with a low-grade temperature of up to 37.6 degrees Celsius. CURRENT MEDICATIONS: Include benztropine, cholecalciferol, lispro insulin, tamsulosin, haloperidol, Zosyn IV, Tylenol p.r.n., docusate sodium p.r.n., glucagon p.r.n., hydrocodone bitartrate p.r.n., hydralazine p.r.n., ondansetron p.r.n. PHYSICAL EXAMINATION: GENERAL: The patient is resting comfortably in bed. He is awake and alert, does not appear to be toxic, does not appear to be in any acute distress. VITAL SIGNS: Temperature maximum in last 24 hours is 37.6 degrees Celsius. Current temperature is 37.1 degrees Celsius, blood pressure is 118/70, respirations 16 per minute, pulse is 80 per minute. The patient's weight is around 68 kg. HEENT: Head is atraumatic and normocephalic. Pupils are equal, round and reacting to light and accommodation bilaterally. Extraocular movements are intact. Oropharynx is clear. Oral hygiene is fair. NECK: Supple. JVD is absent. No carotid bruit, thyromegaly, or cervical lymphadenopathy. LUNGS: There is fair air entry bilaterally. CARDIOVASCULAR: S1, S2 audible. No murmur, gallop, S3 or S4 appreciated. ABDOMEN: Soft and slightly bulging. The patient has mild suprapubic area tenderness. No hepatosplenomegaly. Bowel sounds are normoactive. Has minimal tenderness at the renal angles bilaterally. GENITOURINARY: The patient has indwelling Black catheter in place. The catheter appears to be working fine and has clear urine and being drained into the bag. EXTREMITIES: Both calves are soft. No calf tenderness. No pedal edema. Peripheral pulses are faintly palpable bilaterally. SKIN: The patient's peripheral IV sites are clean without any evidence of phlebitis. LABORATORY DATA: Serum sodium is 139, potassium 4.0, chloride 107, bicarbonate 30, glucose 102, BUN 12, creatinine 1.1, estimated GFR is 75.4, calcium is 7.8, magnesium is 1.72. Blood cultures x2 are negative so far at 48 hours of incubation. PATIENT NAME: MATHEW CASTILLO ASSESSMENT AND PLAN: The patient with multiple medical problems was initially admitted through the Emergency Room where he was transferred from [facility] because of urinary retention. The patient presented to [facility] with 2 days' history of not able to pass any urine and he was found to have 3 liters urine in his bladder with some extravasation of urine into the peritoneal cavity. The patient had a Black catheter placed and bladder was relieved. He was transferred to [facility] for evaluation by Urology Service. The patient was kept on IV ceftriaxone. Initially, he showed improvement in his condition; however, he had a temperature of up to 37.8 degrees Celsius reception clerk on 10/20/2022, and at that time, he had stover cultures done and he was also found to have marked leukocytosis of 19,000. The patient clinically; however, remains hemodynamically stable. He had further workup done and inflammatory markers including D-dimer were elevated; however, his bilateral lower extremity venous Doppler studies were negative for DVT, but that does not rule out pelvic DVT. Clinically, he remains hemodynamically stable and was started on IV Zosyn empirically, which he is still receiving and he is due to complete it on 10/25/2022. For now, we will keep him on the same regimen along with other supportive treatments. DVT prophylaxis as per primary team's orders. Discussed with the patient's nursing staff. Dictated By: Skip Jaffe MD Date Dictated: 10/23/2022 18:27:31 Date Transcribed: 10/23/2022 18:54:06 DORADO/GLORIA Receipt ID: [id number] Authenticated and Edited by Skip Jaffe MD On 11/02/22 2:23:13 AM at 0225 PATIENT NAME: MATHEW CASTILLO [facility] 2022-10-23 13:24:00 [facility] ([facility]) Nephrology Progress Note REPORT#:[id number] REPORT STATUS: Signed DATE:10/23/22 TIME: 132 PATIENT: MATHEW CASTILLO UNIT #: [id number] ROOM/BED: 6630-1 : 59 AGE: 62 SEX: M ATTEND: Salinas Alba MD ADM AUTHOR: Carmen Kemp * ALL edits or amendments must be made on the electronic/computer document * Carmen Kemp 10/23/22 1324: Subjective Chief complaint: Concern for ruptured ureter HPI: The patient seen and examined. Resting in bed, tolerating PO intake w/o any issue. Black to gravity, good UOP. Review of Systems [...] 100 ML Cholecalciferol (VITAMIN D) 1,000 INTL.UNITS DAILY PO [...] imported from the dietitian's assessment. BMI Calculated: 22.1 Nutrition related diagnosis: Nutrition diagnosis details: Nutrition problem: Nutrition etiology: Nutrition signs and symptoms: Nutrition prescription: Dietitian name: Assessment completed: Physical Exam General appearance: alert, awake, no acute distress Head/eyes: atraumatic, clear cornea, normal conjunctiva/sclera, normocephalic ENT: normal nose Neck: supple/no meningismus Cardiovascular: normal heart sounds Respiratory: decreased breath sounds, wheezes, aerating well, no distress Abdomen: non-tender, soft Genitourinary: [...] CHANDRA (Resolved) -Renal function improved and wnl, black to gravity, s/p bicarb gtt. -2/2 post-obstrucitve uropathy, monitor for post-obstructive diuresis. -UA, urine lytes requested and noted, no significant proteinuria. -Per Urology note: Reportedly the patient had 3L of urine in his bladder. CT abdomen from [place] showed that the patient has a very [...] resolved with catheter placement. This can be managed conservatively. The patient will follow up as an outpatient. -Avoid nephrotoxicity monitor renal function and UOP Hypokalemia/Hypocalcemia/Hypomagnesemia -K+ improved, Mg replaced. Vitamin D deficiency, vitamin D supplement. -Monitor for post-obstructive diuresis and electrolyte imbalance Urinary Retention/BPH -Black to gravity, Urology following, on Tamsulosin -Per Urology note: Reportedly the patient had 3L of urine in his bladder. CT abdomen from [place] showed that the patient has a very [...] resolved with catheter placement. This can be managed [...] patient's nurse, and . Toby Koehler 10/23/22 2252: Attestations Physician Attestation Reviewed findings plan: Patient examined Renal function improved and wnl, black to gravity, -2/2 post-obstrucitve uropathy, replace electrolytes as needed, emperic antibiotics per admitting team, agree with above A/P at 1741 at 2253 RPT #:[id number] END OF REPORT [facility] 2022-10-22 18:32:00 [facility] ([facility]) Infectious Dis. Progress Note REPORT#:[id number] REPORT STATUS: Signed DATE:10/22/22 TIME: 1831 PATIENT: MATHEW CASTILLO UNIT #: [id number] ROOM/BED: [place] [address] : 59 AGE: 62 SEX: M ATTEND: Salinas Alba MD ADM AUTHOR: Skip Jaffe MD * ALL edits or amendments must be made on the electronic/computer document * Subjective Internal record Patient examined, chart reviewed, events of last 24 hours noted. See full dictated progress note for further details. ASSESSMENT AND PLAN: No new development. Patient is resting comfortably in bed. Remains awake and alert. Denies any new complaints. Had low-grade temperature of the 37.6 degree C reception clerk today. Remains afebrile at the present time. [...] empiric IV antibiotics for now. at 0219 [facility] #:[id number] END OF REPORT [facility] 2022-10-22 18:20:00 [id number] [place], [place] [address] PATIENT NAME: MATHEW CASTILLO ADMIT DATE: 10/16/22 ACCOUNT NO: [id number] [place] [facility] [place]GE: 62 REPORT TYPE: PROGRESS NOTE SEX: M ADMITTING PHYSICIAN:Salinas Alba MD ATTENDING PHYSICIAN:Salinas Alba MD DATE: 10/21/2022 SUBJECTIVE: The patient examined. Chart reviewed. Events of last 24 hours noted. The patient clinically is not much changed. He remains awake and alert, resting comfortably in bed. Denies any new complaints. The patient remains afebrile with low-grade temperature of up to 37.2 degrees Celsius. No nausea, vomiting reported. No diarrhea reported. The patient continues to have indwelling Black catheter in place. The lower abdominal discomfort has improved. The patient is ambulating within the room. CURRENT MEDICATIONS: Include benztropine, cholecalciferol, lispro insulin, tamsulosin, haloperidol, Zosyn IV, Tylenol p.r.n., docusate sodium p.r.n., glucagon p.r.n., hydrocodone bitartrate p.r.n., hydralazine p.r.n., ondansetron p.r.n. PHYSICAL EXAMINATION: GENERAL: The patient is resting comfortably in bed. He is awake and alert, does not appear to be toxic, does not appear to be in any acute distress. VITAL SIGNS: Temperature maximum in last 24 hours is 37.8 degrees Celsius. Current temperature is 37.1 degrees Celsius, blood pressure is 118/70, respirations 16 per minute, pulse is 80 per minute. The patient's weight is around 68 kg. HEENT: Head is atraumatic and normocephalic. Pupils are equal, round and reacting to light and accommodation bilaterally. Extraocular movements are intact. Oropharynx is clear. Oral hygiene is fair. NECK: Supple. JVD is absent. No carotid bruit, thyromegaly, or cervical lymphadenopathy. LUNGS: There is fair air entry bilaterally. CARDIOVASCULAR: S1, S2 audible. No murmur, gallop, S3 or S4 appreciated. ABDOMEN: Soft and slightly bulging. The patient has mild suprapubic area tenderness. No hepatosplenomegaly. Bowel sounds are normoactive. Has minimal tenderness at the renal angles bilaterally. GENITOURINARY: The patient has indwelling Black catheter in place. The catheter appears to be working fine and has clear urine and being drained into the bag. EXTREMITIES: Both calves are soft. No calf tenderness. No pedal edema. Peripheral pulses are faintly palpable bilaterally. SKIN: The patient's peripheral IV sites are clean without any evidence of phlebitis. LABORATORY DATA: WBC has decreased to around 14,000 with hemoglobin of 12, hematocrit of 35, platelet count is 321,000. Manual differential shows 78% neutrophils, 8% band forms, 8% lymphocyte, 4%, monocyte, 2% eosinophils. PATIENT NAME: MATHEW CASTILLO Bilateral lower extremity venous Doppler studies show no evidence of DVT. C-reactive protein is 36. Serum sodium is 140, potassium 3.0, chloride 105, bicarbonate 29, glucose 89, BUN 10, creatinine 0.9, estimated GFR is 96, calcium is 7.3, magnesium is 1.50. D-dimer is 5949. ASSESSMENT AND PLAN: The patient with multiple comorbidities, was initially admitted through emergency room at [facility] with acute urinary retention. The patient has a history of schizophrenia and had been having urinary symptoms for over 2 years and about for 2 days, he would not be able to pass any urine and he was found to have acute urinary retention. The patient also had suspicion for possible urinary extravasation within the peritoneal cavity due to that and for the need for urology evaluation, he was transferred to [facility]. The patient was continued on IV ceftriaxone and had been doing fairly well until reception clerk yesterday when he started to have fever of up to 37.8 degrees Celsius and he developed leukocytosis of around 19,000. The patient had his antibiotics changed to IV Zosyn. Urinalysis done on admission had shown 1+ leukocyte esterase and more the 50 rbc's, more than 50 wbc's, and trace bacteria. The patient currently is receiving IV Zosyn; however, he had developed marked leukocytosis of 19,000 yesterday and because of suspicion for possibility of deep vein thrombosis, including pelvic deep vein thrombosis, he had venous Doppler studies done and he also had D-dimer quantitative checked. His venous Doppler studies of lower extremities are negative; however, D-dimer is elevated at 5949 and C-reactive protein is also elevated. The patient otherwise remains hemodynamically stable. We will for now, keep him on the same antibiotics. We will defer primary team to further deep vein thrombosis prophylaxis. The case was discussed with MARLENA Cheng. Dictated By: Skip Jaffe MD Date Dictated: 10/22/2022 18:20:30 Date Transcribed: 10/22/2022 19:52:40 /[facility] Receipt ID: [id number] Authenticated and Edited by Skip Jaffe MD On 11/02/22 2:22:51 AM at 0323 PATIENT NAME: MATHEW CASTILLO [facility] 2022-10-22 18:15:00 [facility] Internal Medicine Prog. Note REPORT#:[id number] REPORT STATUS: Signed DATE:10/22/22 TIME: 1814 PATIENT: MATHEW CASTILLO UNIT #: [id number] ROOM/BED: [place] [address] : 59 AGE: 62 SEX: M ATTEND: Salinas Alba MD ADM AUTHOR: Sofia Cheng NP * ALL edits or amendments must be made on the electronic/computer document * Subjective Chief complaint: Abdominal distention, hydronephrosis HPI: 62-year-old male with last medical history of, BPH, transferred from [place] for urology evaluation and treatment secondary to possible ruptured ureter. As per patient his abdomen was distended for at least for 2 days and he was having difficulty urinating. Patient presented to outside facilityImaging revealed severe bilateral hydronephrosis with evidence of active urine extravasation and large amount of urine in the bladder pushing all the way up to the abdomen. As per patient's daughter about 3 L of fluid was removed within 10 minutes of Black insertion. Patient reports he has been experiencing urinary hesitancy for the past 2 to 3 years. Denies seeing a urologist. Patient denies fever, chills, dysuria, hematuria, or other associated symptoms. Patient denies shortness of breath, chest pain, nausea, vomiting, diarrhea, constipation. Admission vital signs blood pressure 146/78, pulse 92, respiration 18, temperature 37.1, O2 sat 96% on room air. Abnormal labs: Hemoglobin 10.9, hematocrit 31.7, potassium 2.8, chloride 114, [...] ideation, hostile, insomnia, stress, suicidal ideation. Objective General VS/I O: Vital Signs Date Temp Pulse Resp B/P B/P Mean Pulse Ox FiO2 10/21-10/22 36.8-37.6 72-88 14-15 114-130/67-78 83.5-92.3 97-98 Last Documented: Result Date Time Pulse Ox 97 10/22 170 B/P 114/70 10/22 1702 B/P Mean 84.4 10/22 170 O2 Delivery Room air 10/22 1701 Temp 36.9 10/22 170 Pulse 72 10/22 1702 Resp 14 10/22 1702 24 hour I O ending at 0700: 10/22 0700 10/21 1900 Intake Total Output Total 1200 Balance -1200 Output, Urine 1200 PATIENT WEIGHT: Weight (lb): Weight (oz): Weight (kg): 68.000 Medications: Active Meds + DC'd Last 24 Hrs Magnesium Sulfate/Dextrose (MAGNESIUM SULFATE 1GM/D5W 100ML) 100 ML ONCE ONE IV (DC) Piperacillin Sod/Tazobactam Sod (ZOSYN 3.375GM) 3.375 GM Q8H IV Sodium Chloride (SODIUM CHLORIDE 0.9% 100 ML) 100 ML Cholecalciferol (VITAMIN D) 1,000 INTL.UNITS DAILY PO [...] alert, awake Head/Eyes: atraumatic, clear cornea, EOMI, normocephalic, normal conjunctiva/ sclera, normal eyelids/periorb, PERRLA ENT: normal dentition, normal ear left, normal ear right, normal nose, normal pharynx, normal sinus Cardiovascular: regular rate rhythm Respiratory: decreased breath sounds, clear to auscultation, no distress, no tenderness Abdomen/GI: active bowel sounds, soft Abdomen quadrants: LLQ normal bowel sounds, LLQ tenderness, LUQ normal bowel sounds, RLQ normal bowel sounds, RLQ tenderness, RUQ normal bowel sounds Genitourinary: black Extremities: moves all, no edema-all extremities, normal capillary refill, normal range of motion, normal sensory, normal motor function 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 Rupture of ureter Free Text DxA P Notes Free text DxA P notes: Assessment: 62-year-old male with last medical history of, BPH, transferred from [place] for urology evaluation and treatment secondary to possible ruptured ureter. As per patient his abdomen was distended for at least for 2 days and he was having difficulty urinating. Patient presented to outside facilityImaging revealed severe bilateral hydronephrosis with evidence of active urine extravasation and large amount of urine in the bladder pushing all the way up to the abdomen. As per patient's daughter about 3 L of fluid was removed within 10 minutes of Black insertion. Patient reports he has been experiencing urinary hesitancy for the past 2 to 3 years. 1. Abdominal distention, severe bilateral hydronephrosis, large amount of urinary retention -Status post Black insertion large amount of urine was obtained 2. Acute kidney injury 3. Hypokalemia/hypocalcemia, hyperchloremia 4. Metabolic acidosis 5. Possible BPH 6. Severe bilateral hydronephrosis 7. Hypertension 8. Schizophrenia Plan of care: Admit patient for further evaluation and treatment Urology consultation in place Keep Black to bedside drainage I's and O's Monitor renal function Nephrology consultation Replace electrolytes Start tamsulosin Bicarb drip started Repeat CT of the abdomen and pelvis if needed Repeat labs Further recommendation based on patient's clinical course 10/17/2022 Vital signs within normal limits Hypokalemia 3.2, hypomagnesemia 1.50 Renal function is improved, discontinue bicarb drip, continue electrolyte control-replace as needed per nephro Urology is following Continue tamsulosin BP control-on hydralazine as needed, pain control Continue telemetry monitoring, intake and output, fall precaution Follow-up labs, continue medications and supportive care 10/18/2022 BP is controlled Hypocalcemia 7.4, hypomagnesemia 1.5, Hypokalemia 3.1 MRSA surveillance screen pending results Uro and Nephro are following Started on cholecalciferol p.o., still on tamsulosin Electrolyte control- magnesium and potassium replaced Fall precaution Follow-up labs, continue medications and supportive care 10/19/2022 Vital signs within normal limits, [...] X-ray of the chest shows mild interstitial pulmonary edema. No focal consolidation. Consultants evaluations noted Electrolyte control replace magnesium Started on IV antibiotic Zosyn Consult placed to Dr. Jaffe for patients UTI Troponin I Blood precaution, glycemic control Follow-up EKG, labs, continue medications and supportive care 10/21/2022 POC glucose is controlled D-dimer 5949 Hypokalemia 3.0, hypomagnesemia 1.50, hypocalcemia 7.3 Blood culture shows no growth after 48 hours ECG: Normal sinus rhythm No evidence of deep vein thrombosis ID has seen the patient. Continue empiric IV antibiotics-Zosyn, tamsulosin p.o. for now. Continue electrolyte control replace potassium and magnesium Pain control, glycemic control Follow-up electrolytes and labs, continue medications and present 10/22/2022 Vital signs within normal limits, POC glucose is controlled Hypocalcemia 7.8, hypomagnesemia 1.72 No sonographic evidence for DVT Blood culture shows no growth after 48 hours Patient with good urine output, renal function is improved, patient will follow- up as an outpatient Still on IV antibiotic Zosyn, tamsulosin p.o. Continue electrolyte control-replace magnesium Continue pain control, glycemic control Follow-up labs, continue medications and supportive care at 0314 at 0842 [facility] #:[id number] END OF REPORT [facility] 2022-10-22 09:31:00 [facility] ([facility] Nephrology Progress Note REPORT#:[id number] REPORT STATUS: Signed DATE:10/22/22 TIME: 930 PATIENT: MATHEW CASTILLO UNIT #: [id number] ROOM/BED: [place] [address] : 59 AGE: 62 SEX: M ATTEND: Salinas lAba MD ADM AUTHOR: Carmen Kemp * ALL edits or amendments must be made on the electronic/computer document * Carmen Kemp 10/22/22 0931: Subjective Chief complaint: Concern for ruptured ureter HPI: The patient seen and examined. Resting in bed, tolerating PO intake w/o any issue. Black to gravity, good UOP. Review of Systems [...] Last 24 Hrs Magnesium Sulfate/Dextrose (MAGNESIUM SULFATE 1GM/D5W 100ML) 100 ML ONCE ONE IV (DC) Piperacillin Sod/Tazobactam Sod (ZOSYN 3.375GM) 3.375 GM Q8H IV Sodium Chloride (SODIUM CHLORIDE 0.9% 100 ML) 100 ML Cholecalciferol (VITAMIN D) 1,000 INTL.UNITS DAILY PO [...] imported from the dietitian's assessment. BMI Calculated: 22.1 Nutrition related diagnosis: Nutrition diagnosis details: Nutrition problem: Nutrition etiology: Nutrition signs and symptoms: Nutrition prescription: Dietitian name: Assessment completed: Physical Exam General appearance: alert, awake, no acute distress Head/eyes: atraumatic, clear cornea, normal conjunctiva/sclera, normocephalic ENT: normal nose Neck: supple/no meningismus Cardiovascular: normal heart sounds Respiratory: decreased breath sounds, wheezes, aerating well, no distress Abdomen: non-tender, soft Genitourinary: [...] CHANDRA (Resolved) -Renal function improved and wnl, black to gravity, s/p bicarb gtt. -2/2 post-obstrucitve uropathy, monitor for post-obstructive diuresis. -UA, urine lytes requested and noted, no significant proteinuria. -Per Urology note: Reportedly the patient had 3L of urine in his bladder. CT abdomen from [place] showed that the patient has a very [...] resolved with catheter placement. This can be managed conservatively. The patient will follow up as an outpatient. -Avoid nephrotoxicity monitor renal function and UOP Hypokalemia/Hypocalcemia/Hypomagnesemia -K+ improved, Mg replaced. Vitamin D deficiency, vitamin D supplement. -Monitor for post-obstructive diuresis and electrolyte imbalance Urinary Retention/BPH -Black to gravity, Urology following, on Tamsulosin -Per Urology note: Reportedly the patient had 3L of urine in his bladder. CT abdomen from [place] showed that the patient has a very [...] resolved with catheter placement. This can be managed [...] patient's nurse, and . Toby Koehler 10/22/22 3183: Attestations Physician Attestation Reviewed findings plan: Patient examined Renal function improved and wnl, black to gravity, -2/2 post-obstrucitve uropathy, replace electrolytes as needed, agree with above A/P at 1842 at 2299 RPT #:[id number] END OF REPORT [facility] 2022-10-21 20:48:00 [facility] Internal Medicine Prog. Note REPORT#:[id number] REPORT STATUS: Signed DATE:10/21/22 TIME: 2047 PATIENT: MATHEW CASTILLO UNIT #: [id number] ROOM/BED: 6630-1 : 59 AGE: 62 SEX: M ATTEND: Salinas Alba MD ADM AUTHOR: Sofia Cheng NP * ALL edits or amendments must be made on the electronic/computer document * Subjective Chief complaint: Abdominal distention, hydronephrosis HPI: 62-year-old male with last medical history of, BPH, transferred from [place] for urology evaluation and treatment secondary to possible ruptured ureter. As per patient his abdomen was distended for at least for 2 days and he was having difficulty urinating. Patient presented to outside facilityImaging revealed severe bilateral hydronephrosis with evidence of active urine extravasation and large amount of urine in the bladder pushing all the way up to the abdomen. As per patient's daughter about 3 L of fluid was removed within 10 minutes of Black insertion. Patient reports he has been experiencing urinary hesitancy for the past 2 to 3 years. Denies seeing a urologist. Patient denies fever, chills, dysuria, hematuria, or other associated symptoms. Patient denies shortness of breath, chest pain, nausea, vomiting, diarrhea, constipation. Admission vital signs blood pressure 146/78, pulse 92, respiration 18, temperature 37.1, O2 sat 96% on room air. Abnormal labs: Hemoglobin 10.9, hematocrit 31.7, potassium 2.8, chloride 114, [...] ideation, hostile, insomnia, stress, suicidal ideation. Objective General VS/I O: Vital Signs Date Temp Pulse Resp B/P B/P Mean Pulse Ox FiO2 10/20-10/21 36.8-37.2 70-84 - 112-125/66-77 81.4-91.8 94-98 [...] 24 Hrs Magnesium Sulfate (MAGNESIUM SULFATE 4GM/SWFI 100ML) 100 ML ONCE ONE IV (DC) Potassium Chloride (POTASSIUM CHLORIDE 20MEQ TAB.ER) 40 MEQ ONCE ONE PO (DC) Piperacillin Sod/Tazobactam Sod (ZOSYN 3.375GM) 3.375 GM Q8H IV Sodium Chloride (SODIUM CHLORIDE 0.9% 100 ML) 100 ML Cholecalciferol (VITAMIN D) 1,000 INTL.UNITS DAILY PO [...] 0426: [Embedded Image Not Available] Laboratory Tests 10/21/17 1707 1126 0723 0426 0426 Chemistry Sodium [...] for DVT Impression By: [id number] Mikaela Ac M.D. Diagnosis, Assessment Plan Hospital course to date: General appearance: alert, awake Head/Eyes: atraumatic, clear cornea, EOMI, normocephalic, normal conjunctiva/ sclera, normal eyelids/periorb, PERRLA ENT: normal dentition, normal ear left, normal ear right, normal nose, normal pharynx, normal sinus Cardiovascular: regular rate rhythm Respiratory: decreased breath sounds, clear to auscultation, no distress, no tenderness Abdomen/GI: active bowel sounds, soft Abdomen quadrants: LLQ normal bowel sounds, LLQ tenderness, LUQ normal bowel sounds, RLQ normal bowel sounds, RLQ tenderness, RUQ normal bowel sounds Genitourinary: black Extremities: moves all, no edema-all extremities, normal capillary refill, normal range of motion, normal sensory, normal motor function 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 Rupture of ureter Free Text DxA P Notes Free text DxA P notes: Assessment: 62-year-old male with last medical history of, BPH, transferred from [place] for urology evaluation and treatment secondary to possible ruptured ureter. As per patient his abdomen was distended for at least for 2 days and he was having difficulty urinating. Patient presented to outside facilityImaging revealed severe bilateral hydronephrosis with evidence of active urine extravasation and large amount of urine in the bladder pushing all the way up to the abdomen. As per patient's daughter about 3 L of fluid was removed within 10 minutes of Black insertion. Patient reports he has been experiencing urinary hesitancy for the past 2 to 3 years. 1. Abdominal distention, severe bilateral hydronephrosis, large amount of urinary retention -Status post Black insertion large amount of urine was obtained 2. Acute kidney injury 3. Hypokalemia/hypocalcemia, hyperchloremia 4. Metabolic acidosis 5. Possible BPH 6. Severe bilateral hydronephrosis 7. Hypertension 8. Schizophrenia Plan of care: Admit patient for further evaluation and treatment Urology consultation in place Keep Black to bedside drainage I's and O's Monitor renal function Nephrology consultation Replace electrolytes Start tamsulosin Bicarb drip started Repeat CT of the abdomen and pelvis if needed Repeat labs Further recommendation based on patient's clinical course 10/17/2022 Vital signs within normal limits Hypokalemia 3.2, hypomagnesemia 1.50 Renal function is improved, discontinue bicarb drip, continue electrolyte control-replace as needed per nephro Urology is following Continue tamsulosin BP control-on hydralazine as needed, pain control Continue telemetry monitoring, intake and output, fall precaution Follow-up labs, continue medications and supportive care 10/18/2022 BP is controlled Hypocalcemia 7.4, hypomagnesemia 1.5, Hypokalemia 3.1 MRSA surveillance screen pending results Uro and Nephro are following Started on cholecalciferol p.o., still on tamsulosin Electrolyte control- magnesium and potassium replaced Fall precaution Follow-up labs, continue medications and supportive care 10/19/2022 Vital signs within normal limits, [...] X-ray of the chest shows mild interstitial pulmonary edema. No focal consolidation. Consultants evaluations noted Electrolyte control replace magnesium Started on IV antibiotic Zosyn Consult placed to Dr. Jaffe for patients UTI Troponin I Blood precaution, glycemic control Follow-up EKG, labs, continue medications and supportive care 10/21/2022 POC glucose is controlled D-dimer 5949 Hypokalemia 3.0, hypomagnesemia 1.50, hypocalcemia 7.3 Blood culture shows no growth after 48 hours ECG: Normal sinus rhythm No evidence of deep vein thrombosis ID has seen the patient. Continue empiric IV antibiotics-Zosyn, tamsulosin p.o. for now. Continue electrolyte control replace potassium and magnesium Pain control, glycemic control Follow-up electrolytes and labs, continue medications and present at 0104 at 1009 RPT #:[id number] END OF REPORT [facility] 2022-10-21 19:01:00 [facility] ([facility]) Infectious Dis. Progress Note REPORT#:[id number] REPORT STATUS: Signed DATE:10/21/22 TIME: 190 PATIENT: MATHEW CASTILLO UNIT #: [id number] ROOM/BED: [place] [address] : 59 AGE: 62 SEX: M ATTEND: Salinas Alba MD ADM AUTHOR: Skip Jaffe MD * ALL edits or amendments must be made on the electronic/computer document * Subjective Internal record Patient examined, [...] Discussed with Skylar MENDIOLA. at 0242 RPT #:[id number] END OF REPORT [facility] 2022-10-21 11:23:00 [facility] ([facility]) Nephrology Progress Note REPORT#:[id number] REPORT STATUS: Signed DATE:10/21/22 TIME: 112 PATIENT: MATHEW CASTILLO UNIT #: [id number] ROOM/BED: [place] [address] : 59 AGE: 62 SEX: M ATTEND: Salinas Alba MD ADM AUTHOR: Carmen Kemp * ALL edits or amendments must be made on the electronic/computer document * Carmen Kemp 10/21/22 1123: Subjective Chief complaint: Concern for ruptured ureter HPI: The patient seen and examined. Resting in bed, tolerating PO intake w/o any issue. Black to gravity, good UOP. Review of Systems [...] 24 Hrs Magnesium Sulfate (MAGNESIUM SULFATE 4GM/SWFI 100ML) 100 ML ONCE ONE IV (DC) Potassium Chloride (POTASSIUM CHLORIDE 20MEQ TAB.ER) 40 MEQ ONCE ONE PO (DC) Piperacillin Sod/Tazobactam Sod (ZOSYN 3.375GM) 3.375 GM Q8H IV Sodium Chloride (SODIUM CHLORIDE 0.9% 100 ML) 100 ML Cholecalciferol (VITAMIN D) 1,000 INTL.UNITS DAILY PO [...] imported from the dietitian's assessment. BMI Calculated: 22.1 Nutrition related diagnosis: Nutrition diagnosis details: Nutrition problem: Nutrition etiology: Nutrition signs and symptoms: Nutrition prescription: Dietitian name: Assessment completed: Physical Exam General appearance: alert, awake, no acute distress Head/eyes: atraumatic, clear cornea, normal conjunctiva/sclera, normocephalic ENT: normal nose Neck: supple/no meningismus Cardiovascular: normal heart sounds Respiratory: decreased breath sounds, aerating well, no distress Abdomen: non-tender, soft Genitourinary: [...] [id number] - Ld Ac M.D. Diagnosis, Assessment Plan Free Text A P: Assessment and Plan: CHANDRA (Resolved) -Renal function improved and wnl, black to gravity, s/p bicarb gtt. -2/2 post-obstrucitve uropathy, monitor for post-obstructive diuresis. -UA, urine lytes requested -Per Urology note: Reportedly the patient had 3L of urine in his bladder. CT abdomen from [place] showed that the patient has a very [...] resolved with catheter placement. This can be managed conservatively. The patient will follow up as an outpatient. -Avoid nephrotoxicity monitor renal function and UOP Hypokalemia/Hypocalcemia/Hypomagnesemia -K+ and Mg replaced. Vitamin D deficiency, vitamin D supplement. -Monitor for post-obstructive diuresis and electrolyte imbalance Urinary Retention/BPH -Black to gravity, Urology following, on Tamsulosin -Per Urology note: Reportedly the patient had 3L of urine in his bladder. CT abdomen from [place] showed that the patient has a very [...] resolved with catheter placement. This can be managed [...] patient, patient's nurse, and . Toby Koehler 10/21/222053: Attestations Physician Attestation Reviewed findings plan: Ptient examined Renal function improved and wnl, black to gravity, -2/2 post-obstrucitve uropathy, monitor for post-obstructive diuresis, low K replaced agree with above A/P at 1640 at 7720 [facility] #:[id number] END OF REPORT [facility] 2022-10-21 03:59:00 [id number] [address] PATIENT NAME: MATHEW CASTILLO ADMIT DATE: 10/16/22 ACCOUNT NO: [id number] ROOM NO: G.6630 AGE: 62 REPORT TYPE: [...] of benign prostatic hypertrophy with recurrent urinary symptoms, history of schizophrenia, currently disabled because of schizophrenia, who was initially admitted to hospital in [place] where he presented with acute urinary retention. [...] for urology evaluation, he was transferred to [facility] on 10/16/2022 for admission. On admission, [...] temperature of up to 37.8 degrees Celsius reception clerk today and after that he had been only having low-grade fever. Denies any nausea, vomiting or diarrhea. Denies any chest pain, cough, expectoration, or shortness of breath. He continues to have a Black catheter in place and admits to having suprapubic area soreness and pain, however, states that the pain and soreness he had at the time of presentation to the [facility] has resolved. Denies any joint pains. 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 He is awake and alert, does not appear to be toxic, does not appear to be in any acute distress. VITAL SIGNS: Temperature maximum in last 24 hours is 37.8 degrees Celsius. Current temperature is 37.1 degrees Celsius, blood pressure is 118/70, respirations 16 per minute, pulse is 80 per minute. The patient's weight is around 68 kg. HEENT: Head is atraumatic and normocephalic. Pupils are equal, round and reacting to light and accommodation bilaterally. Extraocular movements are intact. Oropharynx is clear. Oral hygiene is fair. NECK: Supple. JVD is absent. No carotid bruit, thyromegaly, or cervical lymphadenopathy. LUNGS: There is fair air entry bilaterally. CARDIOVASCULAR: S1, S2 audible. No murmur, gallop, S3 or S4 appreciated. ABDOMEN: Soft and slightly bulging. The patient has mild suprapubic area tenderness. No hepatosplenomegaly. Bowel sounds are normoactive. Has minimal tenderness at the renal angles bilaterally. GENITOURINARY: The patient has indwelling Black catheter in place. The catheter appears to be working fine and has clear urine and being drained into the bag. EXTREMITIES: Both calves are soft. No calf tenderness. No pedal edema. Peripheral pulses are faintly palpable bilaterally. SKIN: The patient's peripheral IV sites are clean without any evidence of phlebitis. LABORATORY DATA: WBC on admission was about 11,000. WBC yesterday was around PATIENT NAME: MATHEW CASTILLO 10,000 with hemoglobin of 12, hematocrit of 36, platelet count 313. WBC today has increased to around 19,000 with hemoglobin of 12, hematocrit of 37, platelet count is 328. Automated differentials show 81% neutrophils, [...] patient had a urinalysis done on 10/19/2022 reception clerk that showed slightly cloudy urine with negative ketones, 3+ blood, 1+ protein, 1+ leukocyte esterase, [...] today shows mild interstitial pulmonary edema, no focal consolidation. High-sensitivity troponin I is less than 3. Repeat CBC done this morning showed WBC around 18,000 with hemoglobin of 12, hematocrit of 37, platelet count 341. Repeat troponin I high sensitivity is less than 3. The patient had 2 blood cultures done reception clerk today, which are incubating. IMPRESSION: The patient with multiple comorbidities including history of schizophrenia and benign prostatic hypertrophy with worsening urinary difficulties for last over 2 years, was admitted through emergency room where he was transferred from [facility] because of need for urology evaluation. The [...] to 37.8 degrees Celsius last night and reception clerk and had developed marked leukocytosis. Clinically, he shows no signs of [...] while his further workup is in progress. SUGGEST: 1. A CBC with manual differential in the morning. 2. Monitor the patient for any further temperature spike. 3. Get inflammatory markers including D-dimer and C-reactive protein with the morning labs. 4. Bilateral lower extremity venous Doppler studies to rule out DVT. 5. Continue empiric IV antibiotics for now. 6. Further recommendations to follow depending on the [...] Dictated: 10/21/2022 03:59:46 Date Transcribed: 10/21/2022 04:40:04 DORADO/MAN Receipt ID: [id number] Authenticated by Skip Jaffe MD On 11/02/2022 02:22:37 AM at 0222 PATIENT NAME: MATHEW CASTILLO [facility] 2022-10-20 20:34:00 [facility] ([facility]) Nephrology Progress Note REPORT#:[id number] REPORT STATUS: Signed DATE:10/20/22 TIME: 2033 PATIENT: MATHEW CASTILLO UNIT #: [id number] ROOM/BED: 6630-1 : 59 AGE: 62 SEX: M ATTEND: Salinas Alba MD ADM AUTHOR: Toby Koehler MD * ALL edits or amendments must be made on the electronic/computer document * Subjective Chief complaint: Concern for ruptured ureter HPI: The patient seen and examined. Resting in bed, denies any N/V/D, tolerating PO intake w/o any issue. Black to gravity, good UOP. Objective General VS/I [...] (SODIUM CHLORIDE 0.9% 100 ML) 100 ML Sodium Chloride (SODIUM CHLORIDE 0.9%) 1,000 ML BOLUS STA IV (DC) Ceftriaxone Sodium (ROCEPHIN 1000MG VIAL) 1,000 MG Q24H IV (CAN) Sodium Chloride (SODIUM CHLORIDE) 10 ML Magnesium Sulfate (MAGNESIUM SULFATE 2GM/SWFI 50ML) 50 ML ONCE ONE IV ( DC) Cholecalciferol (VITAMIN D) 1,000 INTL.UNITS DAILY PO [...] awake, oriented Head/eyes: atraumatic, clear cornea, normal conjunctiva/sclera, normocephalic ENT: normal nose Neck: supple/no meningismus Cardiovascular: normal heart sounds Respiratory: decreased breath sounds, aerating well, no distress Abdomen: distended Genitourinary: [...] - 32.0 %) 9.5 L 7.3 L [place] % (Auto) (4.8 - 9.0 %) 7.2 7.5 Eos % (Auto) (0.3 - 3.7 %) 2.6 2.2 Baso % (Auto) (0.0 - 2.0 %) 0.4 0.3 Neut # (Auto) (2.0 - 7.6 x10 3/uL) 13.75 H 15.38 H Lymph # (Auto) (1.0 - 3.8 x10 3/uL) 1.67 1.40 [place] # (Auto) (0.1 - 0.8 x10 3/uL) [...] - 0.1 x10 3/uL) 0.00 0.00 Radiology data: Recent Impressions: RADIOLOGY - XR CHEST 1 V 10/20 0107 Report Impression - Status: SIGNED Entered: 10/20/2022 0215 IMPRESSION: Mild interstitial pulmonary edema. No focal consolidation. Impression By: [email or web address] - Reinaldo Jacobs M.D. Diagnosis, Assessment Plan Free Text A P: Assessment and Plan: CHANDRA (Resolved) -Renal function improved and wnl, black to gravity, on bicarb gtt, will d/c now. -2/2 post-obstrucitve uropathy, monitor for post-obstructive diuresis. -UA, urine lytes requested -Per Urology note: Reportedly the patient had 3L of urine in his bladder. CT abdomen from [place] showed that the patient has a very [...] resolved with catheter placement. This can be managed conservatively. The patient will follow up as an outpatient. -Avoid nephrotoxicity monitor renal function and UOP Hypokalemia/Hypocalcemia/Hypomagnesemia -K+ and Mg replaced. Vitamin D deficiency, vitamin D supplement. -Monitor for post-obstructive diuresis and electrolyte imbalance Urinary Retention/BPH -Black to gravity, Urology following, on Tamsulosin -Per Urology note: Reportedly the patient had 3L of urine in his bladder. CT abdomen from [place] showed that the patient has a very [...] resolved with catheter placement. This can be managed conservatively. The patient will follow up as an outpatient. HTN -BP acceptable, monitor, on PRN IV hydralazine Schizophrenia -Home medications resumed at 2150 RPT #:[id number] END OF REPORT [facility] 2022-10-20 18:11:00 [facility] Internal Medicine Prog. Note REPORT#:[id number] REPORT STATUS: Signed DATE:10/20/22 TIME: 1810 PATIENT: MATHEW CASTILLO UNIT #: [id number] ROOM/BED: [place] [address] : 59 AGE: 62 SEX: M ATTEND: Salinas Alba MD ADM AUTHOR: Sofia Cheng NP * ALL edits or amendments must be made on the electronic/computer document * Subjective Chief complaint: Abdominal distention, hydronephrosis HPI: 62-year-old male with last medical history of, BPH, transferred from [place] for urology evaluation and treatment secondary to possible ruptured ureter. As per patient his abdomen was distended for at least for 2 days and he was having difficulty urinating. Patient presented to outside facilityImaging revealed severe bilateral hydronephrosis with evidence of active urine extravasation and large amount of urine in the bladder pushing all the way up to the abdomen. As per patient's daughter about 3 L of fluid was removed within 10 minutes of Black insertion. Patient reports he has been experiencing urinary hesitancy for the past 2 to 3 years. Denies seeing a urologist. Patient denies fever, chills, dysuria, hematuria, or other associated symptoms. Patient denies shortness of breath, chest pain, nausea, vomiting, diarrhea, constipation. Admission vital signs blood pressure 146/78, pulse 92, respiration 18, temperature 37.1, O2 sat 96% on room air. Abnormal labs: Hemoglobin 10.9, hematocrit 31.7, potassium 2.8, chloride 114, [...] ideation, hostile, insomnia, stress, suicidal ideation. Objective General VS/I O: [...] (SODIUM CHLORIDE 0.9% 100 ML) 100 ML Sodium Chloride (SODIUM CHLORIDE 0.9%) 1,000 ML BOLUS STA IV (DC) Ceftriaxone Sodium (ROCEPHIN 1000MG VIAL) 1,000 MG Q24H IV (CAN) Sodium Chloride (SODIUM CHLORIDE) 10 ML Magnesium Sulfate (MAGNESIUM SULFATE 2GM/SWFI 50ML) 50 ML ONCE ONE IV ( DC) Cholecalciferol (VITAMIN D) 1,000 INTL.UNITS DAILY PO [...] Coagulation INR (0.8 - 1.2) 1.1 PTT ([place]) (25.0 - 39.5 Seconds) 26.1 PT Patient/Control [...] - 32.0 %) 9.5 L 7.3 L [place] % (Auto) (4.8 - 9.0 %) 7.2 7.5 Eos % (Auto) (0.3 - 3.7 %) 2.6 2.2 Baso % (Auto) (0.0 - 2.0 %) 0.4 0.3 Neut # (Auto) (2.0 - 7.6 x10 3/uL) 13.75 H 15.38 H Lymph # (Auto) (1.0 - 3.8 x10 3/uL) 1.67 1.40 [place] # (Auto) (0.1 - 0.8 x10 3/uL) [...] - 0.1 x10 3/uL) 0.00 0.00 Radiology data: Recent Impressions: RADIOLOGY - XR CHEST 1 V 10/20 0107 Report Impression - Status: SIGNED Entered: 10/20/2022 0215 IMPRESSION: Mild interstitial pulmonary edema. No focal consolidation. Impression By: [email or web address] - Reinaldo Jacosb M.D. Diagnosis, Assessment Plan Hospital course to date: General appearance: alert, awake Head/Eyes: atraumatic, clear cornea, EOMI, normocephalic, normal conjunctiva/ sclera, normal eyelids/periorb, PERRLA ENT: normal dentition, normal ear left, normal ear right, normal nose, normal pharynx, normal sinus Cardiovascular: regular rate rhythm Respiratory: decreased breath sounds, clear to auscultation, no distress, no tenderness Abdomen/GI: active bowel sounds, soft Abdomen quadrants: LLQ normal bowel sounds, LLQ tenderness, LUQ normal bowel sounds, RLQ normal bowel sounds, RLQ tenderness, RUQ normal bowel sounds Genitourinary: black Extremities: moves all, no edema-all extremities, normal capillary refill, normal range of motion, normal sensory, normal motor function 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 Rupture of ureter Free Text DxA P Notes Free text DxA P notes: Assessment: 62-year-old male with last medical history of, BPH, transferred from [place] for urology evaluation and treatment secondary to possible ruptured ureter. As per patient his abdomen was distended for at least for 2 days and he was having difficulty urinating. Patient presented to outside facilityImaging revealed severe bilateral hydronephrosis with evidence of active urine extravasation and large amount of urine in the bladder pushing all the way up to the abdomen. As per patient's daughter about 3 L of fluid was removed within 10 minutes of Black insertion. Patient reports he has been experiencing urinary hesitancy for the past 2 to 3 years. 1. Abdominal distention, severe bilateral hydronephrosis, large amount of urinary retention -Status post Black insertion large amount of urine was obtained 2. Acute kidney injury 3. Hypokalemia/hypocalcemia, hyperchloremia 4. Metabolic acidosis 5. Possible BPH 6. Severe bilateral hydronephrosis 7. Hypertension 8. Schizophrenia Plan of care: Admit patient for further evaluation and treatment Urology consultation in place Keep Black to bedside drainage I's and O's Monitor renal function Nephrology consultation Replace electrolytes Start tamsulosin Bicarb drip started Repeat CT of the abdomen and pelvis if needed Repeat labs Further recommendation based on patient's clinical course 10/17/2022 Vital signs within normal limits Hypokalemia 3.2, hypomagnesemia 1.50 Renal function is improved, discontinue bicarb drip, continue electrolyte control-replace as needed per nephro Urology is following Continue tamsulosin BP control-on hydralazine as needed, pain control Continue telemetry monitoring, intake and output, fall precaution Follow-up labs, continue medications and supportive care 10/18/2022 BP is controlled Hypocalcemia 7.4, hypomagnesemia 1.5, Hypokalemia 3.1 MRSA surveillance screen pending results Uro and Nephro are following Started on cholecalciferol p.o., still on tamsulosin Electrolyte control- magnesium and potassium replaced Fall precaution Follow-up labs, continue medications and supportive care 10/19/2022 Vital signs within normal limits, [...] X-ray of the chest shows mild interstitial pulmonary edema. No focal consolidation. Consultants evaluations noted Electrolyte control replace magnesium Started on IV antibiotic Zosyn Consult placed to Dr. Jaffe for patients UTI Troponin I Blood precaution, glycemic control Follow-up EKG, labs, continue medications and supportive care at 0141 at 1009 RPT #:[id number] END OF REPORT [facility] 2022-10-20 17:06:00 [facility] ([facility]) Infect Disease Consult Note REPORT#:[id number] REPORT STATUS: Signed DATE:10/20/22 TIME: 1705 PATIENT: MATHEW CASTILLO UNIT #: [id number] ROOM/BED: [place]1 : 59 AGE: 62 SEX: M ATTEND: Salinas Alba MD ADM AUTHOR: Skip Jaffe MD * ALL edits or amendments must be made on the electronic/computer document * History of Present Illness HPI: Thank you for the consultation. Patient's current and [...] Allergies: Coded Allergies: No Known Allergies (10/16/22) at 0239 RPT #:[id number] END OF REPORT [facility] 2022-10-20 01:07:00 [id number] [place] [address] PATIENT NAME: MATHEW CASTILLO ADMIT DATE: 10/16/22 ACCOUNT NO: [id number] [place] [facility] [place] 62 REPORT TYPE: eELECTROCARDIOGRAM REPORT SEX: M ADMITTING PHYSICIAN:Salinas Alba MD ATTENDING PHYSICIAN:Salinas Alba MD Order: [id number] Test Reason : Sepsis Test Date/Time Stamp: [...] Confirmed by MD ESMER, ESMER ([id number]) on 10/21/2022 12:47:02 PM Referred By: Salinas Dukes Confirmed by:ESMER HERRON MD at 1247 PATIENT NAME: MATHEW CASTILLO [facility] 2022-10-19 22:43:00 [facility] Internal Medicine Prog. 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 As per patient his abdomen was distended for at least for 2 days and he was having difficulty urinating. Patient presented to outside facilityImaging revealed severe bilateral hydronephrosis with evidence of active urine extravasation and large amount of urine in the bladder pushing all the way up to the abdomen. As per patient's daughter about 3 L of fluid was removed within 10 minutes of Black insertion. Patient reports he has been experiencing urinary hesitancy for the past 2 to 3 years. Denies seeing a urologist. Patient denies fever, chills, dysuria, hematuria, or other associated symptoms. Patient denies shortness of breath, chest pain, nausea, vomiting, diarrhea, constipation. Admission vital signs blood pressure 146/78, pulse 92, respiration 18, temperature 37.1, O2 sat 96% on room air. Abnormal labs: Hemoglobin 10.9, hematocrit 31.7, potassium 2.8, chloride 114, [...] ideation, hostile, insomnia, stress, suicidal ideation. Objective General VS/I O: Laboratory Tests 10/19/22 0347: [Embedded Image Not Available] 10/18/22 0543: [Embedded Image Not Available] Laboratory Tests 10/19 1615 1135 0725 0347 Chemistry Sodium (134 [...] (1.80 - 2.40 mg/dL) 1.48 L 10/1840 20123 5697 4560 Chemistry POC Glucose (70 - 110 MG/DL) [...] L Laboratory Tests 10/19 10/18 10/17 0347 2361 2946 Hematology WBC (4.5 - 11.0 x10 3/uL) [...] - 32.0 %) 15.7 15.6 10.6 L [place] % (Auto) (4.8 - 9.0 %) 8.5 10.1 H 12.8 H Eos % (Auto) (0.3 - 3.7 %) 6.0 H 7.5 H 2.7 Baso % (Auto) (0.0 - 2.0 %) 0.7 0.7 0.4 Neut # (Auto) (2.0 - 7.6 x10 3/uL) 6.09 5.53 8.23 H Lymph # (Auto) (1.0 - 3.8 x10 3/uL) 1.48 1.39 1.22 [place] # (Auto) (0.1 - 0.8 x10 3/uL) [...] pH (5.0 - 7.0) 5.0 Ur Specific [place] (1.005 - 1.030) 1.015 Urine Protein (NEGATIVE) [...] - COMP NASAL Chemistry: 10/19 1615 1135 0743 0347 Chemistry Sodium (134 - 147 mEq/L) [...] 1616 37.2 80 14 105/68 80.3 97 / 1136 37.0 85 17 142/80 100.6 98 [...] Mean Pulse Ox FiO2 10/18-10/19 37.0-37.2 66-85 14-17 105-142/67-80 80.3-100.6 95-98 Last [...] alert, awake Head/Eyes: atraumatic, clear cornea, EOMI, normocephalic, normal conjunctiva/ sclera, normal eyelids/periorb, PERRLA ENT: normal dentition, normal ear left, normal ear right, normal nose, normal pharynx, normal sinus Cardiovascular: regular rate rhythm Respiratory: decreased breath sounds, clear to auscultation, no distress, no tenderness Abdomen/GI: active bowel sounds, soft Abdomen quadrants: LLQ normal bowel sounds, LLQ tenderness, LUQ normal bowel sounds, RLQ normal bowel sounds, RLQ tenderness, RUQ normal bowel sounds Genitourinary: black Extremities: moves all, no edema-all extremities, normal capillary refill, normal range of motion, normal sensory, normal motor function 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 Rupture of ureter Free Text DxA P Notes Free text DxA P notes: Assessment: 62-year-old male with last medical history of, BPH, transferred from [place] for urology evaluation and treatment secondary to possible ruptured ureter. As per patient his abdomen was distended for at least for 2 days and he was having difficulty urinating. Patient presented to outside facilityImaging revealed severe bilateral hydronephrosis with evidence of active urine extravasation and large amount of urine in the bladder pushing all the way up to the abdomen. As per patient's daughter about 3 L of fluid was removed within 10 minutes of Black insertion. Patient reports he has been experiencing urinary hesitancy for the past 2 to 3 years. 1. Abdominal distention, severe bilateral hydronephrosis, large amount of urinary retention -Status post Black insertion large amount of urine was obtained 2. Acute kidney injury 3. Hypokalemia/hypocalcemia, hyperchloremia 4. Metabolic acidosis 5. Possible BPH 6. Severe bilateral hydronephrosis 7. Hypertension 8. Schizophrenia Plan of care: Admit patient for further evaluation and treatment Urology consultation in place Keep Black to bedside drainage I's and O's Monitor renal function Nephrology consultation Replace electrolytes Start tamsulosin Bicarb drip started Repeat CT of the abdomen and pelvis if needed Repeat labs Further recommendation based on patient's clinical course 10/17/2022 Vital signs within normal limits Hypokalemia 3.2, hypomagnesemia 1.50 Renal function is improved, discontinue bicarb drip, continue electrolyte control-replace as needed per nephro Urology is following Continue tamsulosin BP control-on hydralazine as needed, pain control Continue telemetry monitoring, intake and output, fall precaution Follow-up labs, continue medications and supportive care 10/18/2022 BP is controlled Hypocalcemia 7.4, hypomagnesemia 1.5, Hypokalemia 3.1 MRSA surveillance screen pending results Uro and Nephro are following Started on cholecalciferol p.o., still on tamsulosin Electrolyte control- magnesium and potassium replaced Fall precaution Follow-up labs, continue medications and supportive care 10/19/2022 Vital signs within normal limits, [...] Follow-up labs, continue medications and present care at 0229 at 1894 RPT #:[id number] END OF REPORT [facility] 2022-10-19 20:14:00 [facility] Nephrology Progress Note REPORT#:[id number] REPORT STATUS: Signed DATE:10/19/22 TIME: 2013 PATIENT: MATHEW CASTILLO UNIT #: [id number] ROOM/BED: 6630-1 : 59 AGE: 62 SEX: M ATTEND: Salinas Alba MD ADM AUTHOR: Toby Koehler MD * ALL edits or amendments must be made on the electronic/computer document * Subjective Chief complaint: Concern for ruptured ureter HPI: The patient seen and examined. Resting in bed, denies any N/V/D, tolerating PO intake w/o any issue. Black to gravity, good UOP. Objective General VS/I [...] 24 Hrs Cholecalciferol (VITAMIN D) 1,000 INTL.UNITS DAILY PO [...] awake, oriented Head/eyes: atraumatic, clear cornea, normal conjunctiva/sclera, normocephalic ENT: normal nose Neck: supple/no meningismus Cardiovascular: normal heart sounds Respiratory: decreased breath sounds, aerating well, no distress Abdomen: distended Genitourinary: urinary catheter, urine Extremities: no edema Results Findings/Data: Laboratory Tests 10/19 10/19 10/19 10/19 10/18 1615 1135 0725 7 2021 Chemistry Sodium (134 - 147 mEq/L) [...] % (Auto) (14.0 - 32.0 %) 15.7 [place] % (Auto) (4.8 - 9.0 %) 8.5 Eos % (Auto) (0.3 - 3.7 %) 6.0 H Baso % (Auto) (0.0 - 2.0 %) 0.7 Neut # (Auto) (2.0 - 7.6 x10 3/uL) 6.09 Lymph # (Auto) (1.0 - 3.8 x10 3/uL) 1.48 [place] # (Auto) (0.1 - 0.8 x10 3/uL) [...] pH (5.0 - 7.0) 5.0 Ur Specific [place] (1.005 - 1.030) 1.015 Urine Protein (NEGATIVE) [...] CHANDRA (Resolved) -Renal function improved and wnl, black to gravity, on bicarb gtt, will d/c now. -2/2 post-obstrucitve uropathy, monitor for post-obstructive diuresis. -UA, urine lytes requested -Per Urology note: Reportedly the patient had 3L of urine in his bladder. CT abdomen from [place] showed that the patient has a very [...] resolved with catheter placement. This can be managed conservatively. The patient will follow up as an outpatient. -Avoid nephrotoxicity monitor renal function and UOP Hypokalemia/Hypocalcemia/Hypomagnesemia -K+ and Mg replaced. Vitamin D deficiency, vitamin D supplement. -Monitor for post-obstructive diuresis and electrolyte imbalance Urinary Retention/BPH -Black to gravity, Urology following, on Tamsulosin -Per Urology note: Reportedly the patient had 3L of urine in his bladder. CT abdomen from [place] showed that the patient has a very [...] resolved with catheter placement. This can be managed conservatively. The patient will follow up as an outpatient. HTN -BP acceptable, monitor, on PRN IV hydralazine Schizophrenia -Home medications resumed at 2148 [facility] #:[id number] END OF REPORT [facility] 2022-10-18 20:26:00 [facility] Internal Medicine Prog. Note REPORT#:[id number] REPORT STATUS: Signed DATE:10/18/22 TIME: 2025 PATIENT: MATHEW CASTILLO UNIT #: [id number] [address]/BED: [address] : [address] AGE: 62 SEX: M ATTEND: Salinas Alba MD ADM AUTHOR: Sofia Cheng NP * ALL edits or amendments must be made on the electronic/computer document * Subjective Chief complaint: Abdominal distention, hydronephrosis HPI: 62-year-old male with last medical history of, BPH, transferred from [place] for urology evaluation and treatment secondary to possible ruptured ureter. As per patient his abdomen was distended for at least for 2 days and he was having difficulty urinating. Patient presented to outside facilityImaging revealed severe bilateral hydronephrosis with evidence of active urine extravasation and large amount of urine in the bladder pushing all the way up to the abdomen. As per patient's daughter about 3 L of fluid was removed within 10 minutes of Black insertion. Patient reports he has been experiencing urinary hesitancy for the past 2 to 3 years. Denies seeing a urologist. Patient denies fever, chills, dysuria, hematuria, or other associated symptoms. Patient denies shortness of breath, chest pain, nausea, vomiting, diarrhea, constipation. Admission vital signs blood pressure 146/78, pulse 92, respiration 18, temperature 37.1, O2 sat 96% on room air. Abnormal labs: Hemoglobin 10.9, hematocrit 31.7, potassium 2.8, chloride 114, CO2 18, BUN 41, creatinine 2.1, glucose 643Calcium 4.9. Review of Systems Additional notes: Constitutional: Denies: chills, fever. ENT: Denies: earache, nasal congestion, sore throat. Respiratory: Denies: hemoptysis, parox nocturnal dyspnea, pleurisy, pleuritic pain, pneumonia , SOB, [...] ideation, hostile, insomnia, stress, suicidal ideation. Objective General VS/I O: Vital Signs Date Temp Pulse Resp B/P B/P Mean Pulse Ox FiO2 10/18 37.1-37.4 69-88 14- 120-133/67-81 85.0-98.2 96-99 Last Documented: Result Date Time Pulse Ox 97 10/18 1855 B/P 132/81 10/18 1855 B/P Mean 98.2 10/18 1855 O2 Delivery Room air 10/18 1854 Temp 37.1 10/18 185 Pulse 75 10/18 1855 Resp 16 10/18 1855 24 hour I O ending at 0700: 10/18 0700 10/17 1900 Intake Total 480 Output Total 2000 Balance 480 -2000 Intake, Oral 480 Number 2 Bowel Movements Number Voids 2 Output, Urine 2000 PATIENT WEIGHT: Weight (lb): Weight (oz): Weight (kg): 68.000 Medications: Active Meds + DC'd Last 24 Hrs Magnesium Sulfate (MAGNESIUM SULFATE 4GM/SWFI 100ML) 100 [...] % (Auto) (14.0 - 32.0 %) 15.6 [place] % (Auto) (4.8 - 9.0 %) 10.1 H Eos % (Auto) (0.3 - 3.7 %) 7.5 H Baso % (Auto) (0.0 - 2.0 %) 0.7 Neut # (Auto) (2.0 - 7.6 x10 3/uL) 5.53 Lymph # (Auto) (1.0 - 3.8 x10 3/uL) 1.39 [place] # (Auto) (0.1 - 0.8 x10 3/uL) [...] 0.1 x10 3/uL) 0.00 Diagnosis, Assessment Plan Hospital course to date: General appearance: alert, awake Head/Eyes: atraumatic, clear cornea, EOMI, normocephalic, normal conjunctiva/ sclera, normal eyelids/periorb, PERRLA ENT: normal dentition, normal ear left, normal ear right, normal nose, normal pharynx, normal sinus Cardiovascular: regular rate rhythm Respiratory: decreased breath sounds, clear to auscultation, no distress, no tenderness Abdomen/GI: active bowel sounds, soft Abdomen quadrants: LLQ normal bowel sounds, LLQ tenderness, LUQ normal bowel sounds, RLQ normal bowel sounds, RLQ tenderness, RUQ normal bowel sounds Genitourinary: black Extremities: moves all, no edema-all extremities, normal capillary refill, normal range of motion, normal sensory, normal motor function 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 Rupture of ureter Free Text DxA P Notes Free text DxA P notes: Assessment: 62-year-old male with last medical history of, BPH, transferred from [place] for urology evaluation and treatment secondary to possible ruptured ureter. As per patient his abdomen was distended for at least for 2 days and he was having difficulty urinating. Patient presented to outside facilityImaging revealed severe bilateral hydronephrosis with evidence of active urine extravasation and large amount of urine in the bladder pushing all the way up to the abdomen. As per patient's daughter about 3 L of fluid was removed within 10 minutes of Black insertion. Patient reports he has been experiencing urinary hesitancy for the past 2 to 3 years. 1. Abdominal distention, severe bilateral hydronephrosis, large amount of urinary retention -Status post Black insertion large amount of urine was obtained 2. Acute kidney injury 3. Hypokalemia/hypocalcemia, hyperchloremia 4. Metabolic acidosis 5. Possible BPH 6. Severe bilateral hydronephrosis 7. Hypertension 8. Schizophrenia Plan of care: Admit patient for further evaluation and treatment Urology consultation in place Keep Black to bedside drainage I's and O's Monitor renal function Nephrology consultation Replace electrolytes Start tamsulosin Bicarb drip started Repeat CT of the abdomen and pelvis if needed Repeat labs Further recommendation based on patient's clinical course 10/17/2022 Vital signs within normal limits Hypokalemia 3.2, hypomagnesemia 1.50 Renal function is improved, discontinue bicarb drip, continue electrolyte control-replace as needed per nephro Urology is following Continue tamsulosin BP control-on hydralazine as needed, pain control Continue telemetry monitoring, intake and output, fall precaution Follow-up labs, continue medications and supportive care 10/18/2022 BP is controlled Hypocalcemia 7.4, hypomagnesemia 1.5, Hypokalemia 3.1 MRSA surveillance screen pending results Uro and Nephro are following Started on cholecalciferol p.o., still on tamsulosin Electrolyte control- magnesium and potassium replaced Fall precaution Follow-up labs, continue medications and supportive care at 2012 at 1301 [facility] #:[id number] END OF REPORT [facility] 2022-10-18 17:48:00 [facility] ([facility]) Nephrology Progress Note REPORT#:[id number] REPORT STATUS: Signed DATE:10/18/22 TIME: 1747 PATIENT: MATHEW CASTILLO UNIT #: [id number] ROOM/BED: 6630-1 : 59 AGE: 62 SEX: M ATTEND: Salinas Alba MD ADM AUTHOR: Carmen Kemp * ALL edits or amendments must be made on the electronic/computer document * See Addendum Carmen Kemp 10/18/221747: Subjective Chief complaint: Concern for ruptured ureter HPI: The patient seen and examined. Resting in bed, denies any N/V/D, tolerating PO intake w/o any issue. Black to gravity, good UOP. Review of Systems [...] 16 122/73 89.0 96 Room air 10/17 2014 37.5 83 16 119/70 86.3 94 Room air 24 hour I O ending at 0700: 10/18 0700 10/17 1900 Intake Total 480 Output Total 2000 Balance 480 -2000 Intake, Oral 480 Number 2 Bowel Movements Number Voids 2 Output, Urine 1999 PATIENT WEIGHT: Weight (lb): Weight (oz): Weight (kg): 68.000 Medications Active Meds + DC'd Last 24 Hrs Magnesium Sulfate (MAGNESIUM SULFATE 4GM/SWFI 100ML) 100 [...] (DC) Sodium Chloride (0.45% Sodium Chloride) 1,000 ML Benztropine Mesylate (COGENTIN) 1 MG DAILY PO Dextrose/Water (DEXTROSE 10% IN WATER) 125 ML ASDIR PRN IV (CKD) Dextrose/Water (DEXTROSE 10% IN WATER) 250 ML ASDIR PRN IV (CKD) Glucagon (GLUCAGON) 1 MG ASDIR PRN IM Insulin Human Lispro (HUMALOG) 0 AC HS SUBQ Dietitian nutrition assessment The data set between the solid lines has been imported from the dietitian's assessment. BMI Calculated: 22.1 Nutrition related diagnosis: Nutrition diagnosis details: Nutrition problem: Nutrition etiology: Nutrition signs and symptoms: Nutrition prescription: Dietitian name: Assessment completed: Physical Exam General appearance: alert, awake, oriented, no acute distress Head/eyes: atraumatic, clear cornea, normal conjunctiva/sclera, normocephalic ENT: normal nose Neck: supple/no meningismus Cardiovascular: normal heart sounds Respiratory: decreased breath sounds, aerating well, no distress Abdomen: distended Genitourinary: urinary catheter, urine Extremities: no edema Results Findings/Data: Laboratory Tests 10/18 10/18 10/18 10/18 10/17 1118 0740 0543 40 2012 Chemistry Sodium (134 - 147 mEq/L) [...] % (Auto) (14.0 - 32.0 %) 15.6 [place] % (Auto) (4.8 - 9.0 %) 10.1 H Eos % (Auto) (0.3 - 3.7 %) 7.5 H Baso % (Auto) (0.0 - 2.0 %) 0.7 Neut # (Auto) (2.0 - 7.6 x10 3/uL) 5.53 Lymph # (Auto) (1.0 - 3.8 x10 3/uL) 1.39 [place] # (Auto) (0.1 - 0.8 x10 3/uL) [...] 3/uL) 0.00 Diagnosis, Assessment Plan Free Text A P: Assessment and Plan: CHANDRA (Resolved) -Renal function improved and wnl, black to gravity, on bicarb gtt, will d/c now. -2/2 post-obstrucitve uropathy, monitor for post-obstructive diuresis. -UA, urine lytes requested -Per Urology note: Reportedly the patient had 3L of urine in his bladder. CT abdomen from [place] showed that the patient has a very [...] resolved with catheter placement. This can be managed conservatively. The patient will follow up as an outpatient. -Avoid nephrotoxicity monitor renal function and UOP Hypokalemia/Hypocalcemia/Hypomagnesemia -K+ and Mg replaced. Vitamin D deficiency, vitamin D supplement. -Monitor for post-obstructive diuresis and electrolyte imbalance Urinary Retention/BPH -Black to gravity, Urology following, on Tamsulosin -Per Urology note: Reportedly the patient had 3L of urine in his bladder. CT abdomen from [place] showed that the patient has a very [...] resolved with catheter placement. This can be managed conservatively. The patient will follow up as an outpatient. HTN -BP acceptable, monitor, on PRN IV hydralazine Schizophrenia -Home medications resumed Discussed the plan with the patient, patient's nurse, and . Toby Koehler 10/18/221930: Attestations Physician Attestation Reviewed findings plan: Patient examined Renal function improved and wnl, black to gravity, off bicarb drip -2/2 post-obstrucitve uropathy, monitor for post-obstructive diuresis, check lytes in am. urology evaluation noted. Agree with above A/P at 1750 at 193 Addendum 1: 10/18/221936 by Toby Koehler MD K and magnesium supplementation. at 193 RPT #:[id number] END OF REPORT [facility] 2022-10-17 22:43:00 [facility] Internal Medicine Prog. Note REPORT#:[id number] REPORT STATUS: Signed DATE:10/17/22 TIME: 2242 PATIENT: MATHEW CASTILLO UNIT #: [id number] ROOM/BED: [place] [address] : 59 AGE: 62 SEX: M ATTEND: Salinas Alba MD ADM AUTHOR: Sofia Cheng NP * ALL edits or amendments must be made on the electronic/computer document * Subjective Chief complaint: Abdominal distention, hydronephrosis HPI: 62-year-old male with last medical history of, BPH, transferred from [place] for urology evaluation and treatment secondary to possible ruptured ureter. As per patient his abdomen was distended for at least for 2 days and he was having difficulty urinating. Patient presented to outside facilityImaging revealed severe bilateral hydronephrosis with evidence of active urine extravasation and large amount of urine in the bladder pushing all the way up to the abdomen. As per patient's daughter about 3 L of fluid was removed within 10 minutes of Black insertion. Patient reports he has been experiencing urinary hesitancy for the past 2 to 3 years. Denies seeing a urologist. Patient denies fever, chills, dysuria, hematuria, or other associated symptoms. Patient denies shortness of breath, chest pain, nausea, vomiting, diarrhea, constipation. Admission vital signs blood pressure 146/78, pulse 92, respiration 18, temperature 37.1, O2 sat 96% on room air. Abnormal labs: Hemoglobin 10.9, hematocrit 31.7, potassium 2.8, chloride 114, CO2 18, BUN 41, creatinine 2.1, glucose 643Calcium 4.9. Review of Systems Additional notes: Constitutional: Denies: chills, fever. ENT: Denies: earache, nasal congestion, sore throat. Respiratory: Denies: hemoptysis, parox nocturnal dyspnea, pleurisy, pleuritic pain, pneumonia , SOB, [...] ideation, hostile, insomnia, stress, suicidal ideation. Objective General VS/I O: [...] 24 Hrs Cholecalciferol (VITAMIN D) 1,000 INTL.UNITS DAILY PO (CKD) Magnesium Sulfate (MAGNESIUM SULFATE 2GM/SWFI 50ML) 50 ML ONCE ONE IV ( DC) Potassium Chloride (POTASSIUM CHLORIDE 20MEQ TAB.ER) 40 [...] (DC) Sodium Chloride (0.45% Sodium Chloride) 1,000 ML Benztropine Mesylate (COGENTIN) 1 MG DAILY PO Dextrose/Water (DEXTROSE 10% IN WATER) 125 ML ASDIR PRN IV (CKD) Dextrose/Water (DEXTROSE 10% IN WATER) 250 ML ASDIR PRN IV (CKD) Glucagon (GLUCAGON) 1 MG ASDIR PRN IM Insulin Human Lispro (HUMALOG) 0 AC HS SUBQ Results Findings/Data: Laboratory Tests 10/17/22 0713: [Embedded Image Not Available] Laboratory Tests 10/17 [...] (Auto) (14.0 - 32.0 %) 10.6 L [place] % (Auto) (4.8 - 9.0 %) 12.8 H Eos % (Auto) (0.3 - 3.7 %) 2.7 Baso % (Auto) (0.0 - 2.0 %) 0.4 Neut # (Auto) (2.0 - 7.6 x10 3/uL) 8.23 H Lymph # (Auto) (1.0 - 3.8 x10 3/uL) 1.22 [place] # (Auto) (0.1 - 0.8 x10 3/uL) [...] 0.1 x10 3/uL) 0.00 Diagnosis, Assessment Plan Hospital course to date: General appearance: alert, awake Head/Eyes: atraumatic, clear cornea, EOMI, normocephalic, normal conjunctiva/ sclera, normal eyelids/periorb, PERRLA ENT: normal dentition, normal ear left, normal ear right, normal nose, normal pharynx, normal sinus Cardiovascular: regular rate rhythm Respiratory: decreased breath sounds, clear to auscultation, no distress, no tenderness Abdomen/GI: active bowel sounds, soft Abdomen quadrants: LLQ normal bowel sounds, LLQ tenderness, LUQ normal bowel sounds, RLQ normal bowel sounds, RLQ tenderness, RUQ normal bowel sounds Genitourinary: black Extremities: moves all, no edema-all extremities, normal capillary refill, normal range of motion, normal sensory, normal motor function 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 Rupture of ureter Free Text DxA P Notes Free text DxA P notes: Assessment: 62-year-old male with last medical history of, BPH, transferred from [place] for urology evaluation and treatment secondary to possible ruptured ureter. As per patient his abdomen was distended for at least for 2 days and he was having difficulty urinating. Patient presented to outside facilityImaging revealed severe bilateral hydronephrosis with evidence of active urine extravasation and large amount of urine in the bladder pushing all the way up to the abdomen. As per patient's daughter about 3 L of fluid was removed within 10 minutes of Black insertion. Patient reports he has been experiencing urinary hesitancy for the past 2 to 3 years. 1. Abdominal distention, severe bilateral hydronephrosis, large amount of urinary retention -Status post Black insertion large amount of urine was obtained 2. Acute kidney injury 3. Hypokalemia/hypocalcemia, hyperchloremia 4. Metabolic acidosis 5. Possible BPH 6. Severe bilateral hydronephrosis 7. Hypertension 8. Schizophrenia Plan of care: Admit patient for further evaluation and treatment Urology consultation in place Keep Black to bedside drainage I's and O's Monitor renal function Nephrology consultation Replace electrolytes Start tamsulosin Bicarb drip started Repeat CT of the abdomen and pelvis if needed Repeat labs Further recommendation based on patient's clinical course 10/17/2022 Vital signs within normal limits Hypokalemia 3.2, hypomagnesemia 1.50 Renal function is improved, discontinue bicarb drip, continue electrolyte control-replace as needed per nephro Urology is following Continue tamsulosin BP control-on hydralazine as needed, pain control Continue telemetry monitoring, intake and output, fall precaution Follow-up labs, continue medications and supportive care at 0210 at 1300 RPT #:[id number] END OF REPORT [facility] 2022-10-17 17:41:00 [facility]) Urology Progress Note REPORT#:[id number] REPORT STATUS: Signed DATE:10/17/22 TIME: 1740 PATIENT: MATHEW CASTILLO UNIT #: [id number] ROOM/BED: [place] [address] : 59 AGE: 62 SEX: M ATTEND: Salinas Alba MD ADM AUTHOR: Dave He MD * ALL edits or amendments must be made on the electronic/computer document * Subjective Patient reports: no complaints [...] (Auto) (14.0 - 32.0 %) 10.6 L [place] % (Auto) (4.8 - 9.0 %) 12.8 H Eos % (Auto) (0.3 - 3.7 %) 2.7 Baso % (Auto) (0.0 - 2.0 %) 0.4 Neut # (Auto) (2.0 - 7.6 x10 3/uL) 8.23 H Lymph # (Auto) (1.0 - 3.8 x10 3/uL) 1.22 [place] # (Auto) (0.1 - 0.8 x10 3/uL) [...] 3/uL) 0.00 Diagnosis, Assessment Plan Free Text A P: back pressure edema and possible forniceal rupture from retention - SCr 0.9 - F/ U outpt ofr cystoscopy. Home with black at 1742 RPT #:[id number] END OF REPORT [facility] 2022-10-17 13:46:00 [facility] ([facility] Nephrology Progress Note REPORT#:[id number] REPORT STATUS: Signed DATE:10/17/22 TIME: 1345 PATIENT: MATHEW CASTILLO UNIT #: [id number] ROOM/BED: [place] [address] : [birth year] AGE: 62 SEX: M ATTEND: Salinas Alba MD ADM AUTHOR: Carmen Kemp * ALL edits or amendments must be made on the electronic/computer document * Carmen Kemp 10/17/22 1346: Subjective Chief complaint: Concern for ruptured ureter HPI: The patient seen and examined. Resting in bed, denies any N/V/D, tolerating PO intake w/o any issue. Black to gravity, good UOP. Review of Systems [...] 24 Hrs Magnesium Sulfate (MAGNESIUM SULFATE 2GM/SWFI 50ML) 50 ML ONCE ONE IV ( DC) Potassium Chloride (POTASSIUM CHLORIDE 20MEQ TAB.ER) 40 [...] (DCr) Sodium Chloride (0.45% Sodium Chloride) 1,000 ML Benztropine Mesylate (COGENTIN) 1 MG DAILY PO Dextrose/Water (DEXTROSE 10% IN WATER) 125 ML ASDIR PRN IV (CKD) Dextrose/Water (DEXTROSE 10% IN WATER) 250 ML ASDIR PRN IV (CKD) Glucagon (GLUCAGON) 1 MG ASDIR PRN IM Insulin Human Lispro (HUMALOG) 0 AC HS SUBQ Dietitian nutrition assessment The data set between the solid lines has been imported from the dietitian's assessment. BMI Calculated: 22.1 Nutrition related diagnosis: Nutrition diagnosis details: Nutrition problem: Nutrition etiology: Nutrition signs and symptoms: Nutrition prescription: Dietitian name: Assessment completed: Physical Exam General appearance: alert, awake, oriented, no acute distress Head/eyes: atraumatic, clear cornea, normal conjunctiva/sclera, normocephalic ENT: normal nose Neck: supple/no meningismus Cardiovascular: normal heart sounds Respiratory: decreased breath sounds, aerating well, no distress Abdomen: distended Genitourinary: [...] (Auto) (14.0 - 32.0 %) 10.6 L [place] % (Auto) (4.8 - 9.0 %) 12.8 H Eos % (Auto) (0.3 - 3.7 %) 2.7 Baso % (Auto) (0.0 - 2.0 %) 0.4 Neut # (Auto) (2.0 - 7.6 x10 3/uL) 8.23 H Lymph # (Auto) (1.0 - 3.8 x10 3/uL) 1.22 [place] # (Auto) (0.1 - 0.8 x10 3/uL) [...] 3/uL) 0.00 Diagnosis, Assessment Plan Free Text A P: Assessment and Plan: CHANDRA (Resolved) -Renal function improved and wnl, black to gravity, on bicarb gtt, will d/c now. -2/2 post-obstrucitve uropathy, monitor for post-obstructive diuresis. -UA, urine lytes requested -Per Urology note: Reportedly the patient had 3L of urine in his bladder. CT abdomen from [place] showed that the patient has a very [...] resolved with catheter placement. This can be managed conservatively. The patient will follow up as an outpatient. -Avoid nephrotoxicity monitor renal function and UOP Hypokalemia/Hypocalcemia/Hypomagnesemia -K+ and Mg replaced. Vitamin D deficiency, vitamin D supplement. -Monitor for post-obstructive diuresis and electrolyte imbalance Urinary Retention/BPH -Black to gravity, Urology following, on Tamsulosin -Per Urology note: Reportedly the patient had 3L of urine in his bladder. CT abdomen from [place] showed that the patient has a very [...] resolved with catheter placement. This can be managed conservatively. The patient will follow up as an outpatient. HTN -BP acceptable, monitor, on PRN IV hydralazine Schizophrenia -Home medications resumed Discussed the plan with the patient, patient's nurse, and . Toby Koehler 10/17/22 2232: Attestations Physician Attestation Reviewed findings plan: Patient examined Renal function improved and wnl, lback to gravity, off bicarb drip -2/2 post-obstrucitve uropathy, monitor for post-obstructive diuresis, check lytes in am. urology evaluation noted. Agree with above A/P at 1759 at 2234 [facility] #:[id number] END OF REPORT [facility] 2022-10-16 15:13:00 [facility] [place] [id number] PATIENT NAME: MATHEW CASTILLO ADMIT DATE: 10/16/22 ACCOUNT NO: [id number] [place] [facility] [place]GE[place] 62 REPORT TYPE: CONSULTATION REPORT SEX: M ADMITTING PHYSICIAN:Salinas Alba MD ATTENDING PHYSICIAN:Salinas Alba MD CONSULTATION DATE:10/16/2022 REASON FOR CONSULTATION: Hydronephrosis, urinary retention. HISTORY OF PRESENT ILLNESS: This is a 62-year-old male with a history of schizophrenia who was sent in from [place]. He had reportedly almost 3 liters of urine in his bladder. He has been having increasing abdominal pain for the last few days. He has a history of BPH with lower urinary tract symptoms with worsening symptoms over the years. PAST MEDICAL HISTORY: Schizophrenia, BPH. SURGICAL HISTORY: Noncontributory. SOCIAL HISTORY: No alcohol. No drug use. Smokes daily. Good social support. ALLERGIES: NO KNOWN DRUG ALLERGIES. REVIEW OF SYSTEMS: A 14-point review of system was obtained and is negative other than HPI. The patient reports no discomfort. PHYSICAL EXAMINATION: VITAL SIGNS: Blood pressure 134/86, pulse 94, respiratory rate 18, temperature 37.1, 93% on room air. GENERAL: Alert. No acute distress, nontoxic. HEENT: Normocephalic, atraumatic. Nontoxic. NECK: Supple. HEART: Regular rate and rhythm. LUNGS: Respirations unlabored. ABDOMEN: Soft, nontender, nondistended. No CVA tenderness. EXTREMITIES: Moving all extremities well. LABORATORY DATA: White blood cell count 11, hemoglobin 10.9, platelets 207. Creatinine was 2.1 on admission, now down to 1.4. ASSESSMENT AND PLAN: We reviewed the CT scan of the abdomen and pelvis from [place]. The patient has a very large distended [...] resolved with catheter placement. This can be managed conservatively. The patient will follow up as an outpatient. PATIENT NAME: MATHEW CASTILLO Dictated By: Dave He MD Date Dictated: 10/16/2022 15:13:22 Date Transcribed: 10/16/2022 16:06:29 /[facility] Receipt ID: [id number] Authenticated and Edited by Dave He MD On 11/12/22 1:37:06 PM at 0138 PATIENT NAME: MATHEW CASTILLO [facility] 2022-10-16 12:39:00 [facility]) Nephrology Consultation Note REPORT#:[id number] REPORT STATUS: Signed DATE:10/16/22 TIME: 1239 PATIENT: MATHEW CASTILLO UNIT #: [id number] ROOM/BED: 6630-1 : 59 AGE: 62 SEX: M ATTEND: Salinas Alba MD ADM AUTHOR: Carmen Kemp * ALL edits or amendments must be made on the electronic/computer document * Carmen Kemp 10/16/22 1239: History of Present Illness Requesting clinician: Salinas Deshpande/MARLENA Black Reason for consult: CHANDRA Electrolyte imbalance Chief [...] Friday who took him to ER in [place]. He had CT abdomen which revealed b/l [...] no h/o renal calculi. History - Adult longitudinal Past medical history: Reports: Hypertension, BPH, Schizophrenia. Additional surgical history: None reported Additional family history: Noncontributory Alcohol use: Denies EtOH use Drug use: Denies recreational drugs Smoking status for patients 13 years old or older: Current every day smoker Date last smoked: 10/15/22 Medications: Home Medications: Medication Dose/Rte/Freq Days Qty Entered Last Max Daily Dose Reviewed BENZTROPINE 1 MG PO DAILY 10/16/22 10/16/22 Strength: 0.5 MG TAB 0923 0925 HALOPERIDOL (HALDOL) 10 MG PO BID 10/16/22 10/16/22 Strength: 10 MG TAB 0925 0925 Current Hospital Medications: Anti-Infective Agents Sig/Mark Start time Last Medication Dose Route Stop Time Status Admin Ceftriaxone Sodium 1,000 MG X1ED STA 10/166 DC 10/16 (ROCEPHIN 1000MG IV 10/16 0418 [...] (CKD) Sodium Chloride (0.45% Sodium Chloride) 1,000 ML Benztropine Mesylate (COGENTIN) 1 MG DAILY PO [...] Exam General appearance: alert, awake, oriented, no acute distress Head/eyes: atraumatic, clear cornea, normal conjunctiva/sclera, normocephalic ENT: normal nose Neck: supple/no meningismus [...] (Auto) (14.0 - 32.0 %) 3.8 L [place] % (Auto) (4.8 - 9.0 %) 13.6 H Eos % (Auto) (0.3 - 3.7 %) 0.4 Baso % (Auto) (0.0 - 2.0 %) 0.2 Neut # (Auto) (2.0 - 7.6 x10 3/uL) 8.96 H Lymph # (Auto) (1.0 - 3.8 x10 3/uL) 0.42 L [place] # (Auto) (0.1 - 0.8 x10 3/uL) [...] Assessment and Plan: CHANDRA -2/2 post-obstrucitve uropathy, black to gravity, monitor for post-obstructive diuresis. -Repeat labs, renal function improving, on IVF w/ bicarb per primary team -UA, urine lytes requested -Per Urology note: Reportedly the patient had 3L of urine in his bladder. CT abdomen from [place] showed that the patient has a very [...] resolved with catheter placement. This can be managed conservatively. The patient will follow up as an outpatient. -Avoid nephrotoxicity monitor renal function and UOP Hypokalemia/Hypocalcemia -Lab error? repeat labs improved, K+ and Ca replaced. -Monitor for post-obstructive diuresis and electrolyte imbalance Urinary Retention/BPH -Black to gravity, Urology following, on Tamsulosin -Per Urology note: Reportedly the patient had 3L of urine in his bladder. CT abdomen from [place] showed that the patient has a very [...] resolved with catheter placement. This can be managed [...] patient's nurse, and . Toby Koehler 10/16/22 6449: Attestations Physician Attestation Reviewed findings plan: Patient examined 62 years old male with PMH significant for schizophrenia, HTN, BPH, current everyday smoker. The patient states that on Friday last week, he noted abdominal distention, associated w/ pain and was unable to urinate. He was seen by his daughter Friday who took him to ER in [place]. He had CT abdomen which revealed b/l hydronephrosis and concern for possible ureteral rupture. He was transferred to [facility] [place] for Urology evaluation. Initial VS at the ER showed a temperature of 37.1c, pulse 92/min, respration 18/min, BP 146 /78 mm Hg and SpO2 96%. Laboratory data showed normal WBC, hypokalemia w/ K+ 2.8 , CO2 18, azotemia w/ BUN 41, Cr 2.1, elevated blood sugar of 643, hypocalcemia w/ Ca 4.9. Foleys to gravity, replace K aggressively monitor electrolytes closely including magnesium, urology evaluation noted, Agree with above A/P at 1902 at 0714 RPT #:[id number] END OF REPORT [facility] 2022-10-16 11:15:00 [facility] ([facility]) History Physical - Adult REPORT#:[id number] REPORT STATUS: Signed DATE:10/16/22 TIME: 111 PATIENT: MATHEW CASTILLO UNIT #: [id number] RO[address]/BED: [address] : [address] AGE: 62 SEX: M ATTEND: Salinas Alba MD ADM AUTHOR: Sofia Cheng NP * ALL edits or amendments must be made on the electronic/computer document * History of Present Illness HPI Chief complaint: Abdominal distention, hydronephrosis HPI: 62-year-old male with last medical history of, BPH, transferred from [place] for urology evaluation and treatment secondary to possible ruptured ureter. As per patient his abdomen was distended for at least for 2 days and he was having difficulty urinating. Patient presented to outside facilityImaging revealed severe bilateral hydronephrosis with evidence of active urine extravasation and large amount of urine in the bladder pushing all the way up to the abdomen. As per patient's daughter about 3 L of fluid was removed within 10 minutes of Black insertion. Patient reports he has been experiencing urinary hesitancy for the past 2 to 3 years. Denies seeing a urologist. Patient denies fever, chills, dysuria, hematuria, or other associated symptoms. Patient denies shortness of breath, chest pain, nausea, vomiting, diarrhea, constipation. Admission vital signs blood pressure 146/78, pulse 92, respiration 18, temperature 37.1, O2 sat 96% on room air. Abnormal labs: Hemoglobin 10.9, hematocrit 31.7, potassium 2.8, chloride 114, CO2 18, BUN 41, creatinine 2.1, glucose 643Calcium 4.9. History Smoking status for patients 13 years old or older: Current some day smoker Date last smoked: 10/15/22 Medication/Allergy-Vaccine Hx Allergies: Coded Allergies: No Known Allergies (10/16/22) Review of Systems Constitutional: Denies: chills, fever. ENT: Denies: earache, nasal congestion, sore throat. Respiratory: Denies: hemoptysis, parox nocturnal dyspnea, pleurisy, pleuritic pain, pneumonia , SOB, [...] ideation, hostile, insomnia, stress, suicidal ideation. Physical Exam VS/I O [...] alert, awake Head/Eyes: atraumatic, clear cornea, EOMI, normocephalic, normal conjunctiva/ sclera, normal eyelids/periorb, PERRLA ENT: normal dentition, normal ear left, normal ear right, normal nose, normal pharynx, normal sinus Cardiovascular: regular rate rhythm Respiratory: decreased breath sounds, clear to auscultation, no distress, no tenderness Abdomen/GI: active bowel sounds, soft Abdomen quadrants: LLQ normal bowel sounds, LLQ tenderness, LUQ normal bowel sounds, RLQ normal bowel sounds, RLQ tenderness, RUQ normal bowel sounds Genitourinary: black Extremities: moves all, no edema-all extremities, normal capillary refill, normal range of motion, normal sensory, normal motor function 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, oriented X 3 Skin: dry, intact, [...] (Auto) (14.0 - 32.0 %) 3.8 L [place] % (Auto) (4.8 - 9.0 %) 13.6 H Eos % (Auto) (0.3 - 3.7 %) 0.4 Baso % (Auto) (0.0 - 2.0 %) 0.2 Neut # (Auto) (2.0 - 7.6 x10 3/uL) 8.96 H Lymph # (Auto) (1.0 - 3.8 x10 3/uL) 0.42 L [place] # (Auto) (0.1 - 0.8 x10 3/uL) [...] 0.1 x10 3/uL) 0.00 Diagnosis, Assessment Plan Problem List/A P: 1. Rupture of ureter Free Text DxA P Notes Free Text DxA P Notes: Assessment: 62-year-old male with last medical history of, BPH, transferred from [place] for urology evaluation and treatment secondary to possible ruptured ureter. As per patient his abdomen was distended for at least for 2 days and he was having difficulty urinating. Patient presented to outside facilityImaging revealed severe bilateral hydronephrosis with evidence of active urine extravasation and large amount of urine in the bladder pushing all the way up to the abdomen. As per patient's daughter about 3 L of fluid was removed within 10 minutes of Black insertion. Patient reports he has been experiencing urinary hesitancy for the past 2 to 3 years. 1. Abdominal distention, severe bilateral hydronephrosis, large amount of urinary retention -Status post Black insertion large amount of urine was obtained 2. Acute kidney injury 3. Hypokalemia/hypocalcemia, hyperchloremia 4. Metabolic acidosis 5. Possible BPH 6. Severe bilateral hydronephrosis 7. Hypertension 8. Schizophrenia Plan of care: Admit patient for further evaluation and treatment Urology consultation in place Keep Black to bedside drainage I's and O's Monitor renal function Nephrology consultation Replace electrolytes Start tamsulosin Bicarb drip started Repeat CT of the abdomen and pelvis if needed Repeat labs Further recommendation based on patient's clinical course at 0232 at [id number] RPT #:[id number] END OF REPORT [facility] 2022-10-16 03:54:00 [facility] ([facility]) EMERGENCY PROVIDER REPORT REPORT#:[id number] REPORT STATUS: Signed DATE:10/16/22 TIME: 0354 PATIENT: MATHEW CASTILLO UNIT #: [id number] ROOM/BED: [place] [id number] AGE: 62 SEX: M PCP PHYS: No Primary or Family Physician SERVICE AUTHOR: Alecia Iverson MD * ALL edits or amendments must be made on the electronic/computer document * HPI-General Illness General Initial Greet Date/Time 10/16/22 030 Presentation Chief Complaint __ (ruptured ureter) Free [...] Adult Stated Complaint ACUTE RENAL FAILURE, RUPTURED LEFT URETER Allergies Coded Allergies: No Known Allergies (10/16/22) Home Medications Reported Medications BENZTROPINE 1 MG PO DAILY HALOPERIDOL (HALDOL) 10 MG PO BID Calculated Suicide Risk (nurs) No risk Smoking status for patients 13 years old or older: Current some day smoker Physical Exam Vital Signs Vital Signs First Documented: Result Date Time Pulse Ox 96 / 0308 B/P 146/78 / 0308 B/P Mean 100 / 0308 O2 Delivery Room air / 0308 Temp 37.1 / 0308 Pulse 92 07/ 0308 Resp 18 10/16 0308 Last Documented: Result Date Time Pulse Ox 96 10/16 0330 B/P 146/80 / 0330 B/P Mean 107 / 0330 Pulse 90 07/ 0330 O2 Delivery Room air 10/16 0308 Temp 37.1 / 0308 Resp 18 / 0308 Review of Vital Signs Reviewed Free Text PE Notes Free Text PE Notes Gen.: Awake and conversing. NAD HEENT: NCAT. MM moist Eyes: PERRL. EOMI. Conjunctiva normal. Neck: Supple. Trachea is midline. Heart: RRR. No murmur Chest: CTA bilat. No accessory muscle usage. Abdomen: Abdominal distention, nontender to palpation. No guarding or rebound Extremities: No deformities. No joint warmth or erythema. Neuro: AAO. CNII-XII grossly intact Psych: Normal mood and affect. Skin: No lacertions. No abscess. Interpretation Diagnostics Lab Results Interpretation Results Laboratory Tests 10/16/22442: [Embedded Image Not Available] Laboratory Tests: 10/16 [...] (Auto) (14.0 - 32.0 %) 3.8 L [place] % (Auto) (4.8 - 9.0 %) 13.6 H Eos % (Auto) (0.3 - 3.7 %) 0.4 Baso % (Auto) (0.0 - 2.0 %) 0.2 Neut # (Auto) (2.0 - 7.6 x10 3/uL) 8.96 H Lymph # (Auto) (1.0 - 3.8 x10 3/uL) 0.42 L [place] # (Auto) (0.1 - 0.8 x10 3/uL) [...] 3/uL) 0.00 Re-Evaluation MDM Free Text MDM Notes Additional [...] [phone] Consultation Consultation Referral/Consult Name Dave He MD Pinball Machine Repairer Called Urology Pinball Machine Repairer Discussed with marketing consultant Requested Call Time 034 Requested Call Date 10/16/22 Call Returned Call returned Call Returned Time 0355 Call Returned Date 10/16/22 Free Text Consult Notes Recommends abx, requesting NPO status admit to medicine. Patient Discharge Departure Vital Signs/Condition Vital Signs First Documented: Result Date Time Pulse Ox 96 10/16 0308 B/P 146/78 10/16 0308 B/P Mean 100 10/16 0308 O2 Delivery Room air 10/17 307 Temp 37.1 10/16 0308 Pulse 92 10/16 0308 Resp 18 10/168 Last Documented: Result Date Time Pulse Ox 96 10/16 0330 B/P 146/80 10/16 0330 B/P Mean 107 07/12 0330 Pulse 90 10/16 0330 O2 Delivery Room air 10/17 307 Temp 37.1 10/17 307 Resp 18 10/17 307 All vital signs available at the time of this entry have been reviewed. Clinical Impression Clinical Impression [...] Pt Alone I was available in the emergency department for questions or consultation, I did not personally see this patient. I was not involved in the care of this patient and am signing this chart for administrative purposes only. at [facility] #:[id number] END OF REPORT [facility]
--- NOTE | 2023-11-05 14:29 | ER ---
Nurse's Notes [facility] Name: Mathew Porter Age: 63 yrs Sex: Male : 1960 Arrival Date: 11/05/2023 Time: 13:14 Bed 10 Private MD: Diagnosis: Encounter for exchange of urinary Mercer catheter Presentation: 11/04 13:36 Chief complaint: Patient states: needs catheter changed. Coronavirus screen: At this ko1 time, the client does not indicate any symptoms associated with coronavirus-19. Ebola Screen: No symptoms or risks identified at this time. Initial Sepsis Screen: Does the patient meet any 2 criteria? No. Patient's initial sepsis screen is negative. Does the patient have a suspected source of infection? No. Patient's initial sepsis screen is negative. Risk Assessment: Do you want to hurt yourself or someone else? Patient reports no desire to harm self or others. Onset of symptoms is unknown. 13:36 Method Of Arrival: Ambulatory ko1 13:36 Acuity: JAMILA 4 ko1 Triage Assessment: 13:37 General: Appears in no apparent distress. Behavior is calm, cooperative, appropriate ko1 for age. Pain: Denies pain. Historical: - Allergies: 13:37 NKA; ko1 - PMHx: 13:37 Schizophrenia; ko1 - PSHx: 13:37 Urolift (December); ko1 - Immunization history:: Adult Immunizations up to date. - Infectious Disease History:: Denies. - Social history:: Smoking status: Patient reports the use of cigarette tobacco products, smokes one-half pack cigarettes per day. Screenin:49 [facility] ED Fall Risk Assessment (Adult) History of falling in the last 3 months, mb9 including since admission No falls in past 3 months (0 pts) Confusion or Disorientation No (0 pts) Intoxicated or Sedated No (0 pts) Impaired Gait No (0 pts) Mobility Assist Device Used No (0 pt) Altered Elimination No (0 pt) Score/Fall Risk Level 0 - 2 = Low Risk Maintained a safe environment, Hourly rounding (assess needs \T\ fall precautionary measures) done. Abuse screen: Denies threats or abuse. Nutritional screening: No deficits noted. Tuberculosis screening: No symptoms or risk factors identified. Assessment: 14:49 Reassessment: No changes from previously documented assessment. Patient and/or family mb9 updated on plan of care and expected duration. Pain level reassessed. Patient is alert, oriented x 3, equal unlabored respirations, skin warm/dry/pink. Vital Signs: 13:36 BP 140 / 95; Pulse 93; Resp 18; Temp 97; Pulse Ox 96% ; ko1 ED Course: 13:17 Patient arrived in ED. mr 13:24 Brit Zapata [facility]NP-C [facility]. kb 13:24 Karsten Coles MD is Attending Physician. kb 13:37 Triage completed. ko1 13:37 Arm band placed on right wrist. Patient placed in waiting room, Patient notified of ko1 wait time. 14:30 Mercer cath removed intact, balloon deflated. bc6 14:40 Mercer cath inserted, using sterile technique, 16 Fr., by fl, balloon inflated, to bc6 gravity drainage, clamped. 14:49 No provider procedures requiring assistance completed. Patient did not have IV access mb9 during this emergency room visit. 14:50 Patient has correct armband on for positive identification. Call light in reach. mb9 Provided Education on: return to ED as needed. Cardiac monitoring not applicable on this patient. Administered Medications: No medications were administered Medication: 14:50 VIS not applicable for this client. mb9 Outcome: 14:29 Discharge ordered by . kb 14:49 Discharged to home ambulatory, mb9 14:49 Condition: stable 14:49 Discharge instructions given to patient, Instructed on discharge instructions, follow up and referral plans. Demonstrated understanding of instructions, follow-up care, 14:50 Patient left the ED. mb9 Signatures: Brit Zapata FNP-C FNP-Ckb Rivera, Mary, Reg Reg mr CanalesElizabeth, RN RN ko1 Rylee Coronado, RN RN mb9 Genna Mckenzie bc6
--- NOTE | 2023-11-05 14:29 | EDPHYS ---
Physician Documentation [facility] Name: Mathew Porter Age: 63 yrs Sex: Male : 1960 Arrival Date: 11/05/2023 Time: 13:14 Bed 10 Private MD: Karsten Rubalcava HPI: 11/04 13:37 This 63 yrs old Male presents to ER via Ambulatory with complaints of Problem With kb Urinary Catheter. 13:37 Patient is a 63-year-old male who presents to have Johns catheter replaced. States his kb PCP told him to have it changed out every month so he has been coming here to have them replaced. The Johns catheter that is in place at this time was placed on October 02, 2023. Denies any abdominal pain, fever, other symptoms.. Historical: - Allergies: 13:37 NKA; ko1 - PMHx: 13:37 Schizophrenia; ko1 - PSHx: 13:37 Urolift (December); ko1 - Immunization history:: Adult Immunizations up to date. - Infectious Disease History:: Denies. - Social history:: Smoking status: Patient reports the use of cigarette tobacco products, smokes one-half pack cigarettes per day. ROS: 13:37 Constitutional: As per HPI kb Exam: 13:37 Constitutional: This is a well developed, well nourished patient who is awake, alert, kb and in no acute distress. Head/Face: Normocephalic, atraumatic. ENT: Moist Mucous membranes Cardiovascular: Regular rate Respiratory: Respirations even and unlabored. No increased work of breathing. Talking in full sentences Abdomen/GI: Soft, non-tender. No distention Skin: Warm, dry with normal turgor. Normal color. MS/ Extremity: Pulses equal, no cyanosis. Neurovascular intact. Full, normal range of motion. Neuro: Awake and alert, GCS 15, oriented to person, place, time, and situation. Moves all extremities. Normal gait. Vital Signs: 13:36 BP 140 / 95; Pulse 93; Resp 18; Temp 97; Pulse Ox 96% ; ko1 MDM: 13:24 Patient medically screened. kb 13:38 Differential diagnosis: johns catheter malfunction, johns catheter replacement. Data kb reviewed: vital signs, nurses notes. Counseling: I had a detailed discussion with the patient and/or guardian regarding the historical points, exam findings, and any diagnostic results supporting the discharge/admit diagnosis, the need for outpatient follow up, a family practitioner, to return to the emergency department if symptoms worsen or persist or if there are any questions or concerns that arise at home. 11/04 13:37 Order name: Johns: replace johns; Complete Time: 14:40 kb Administered Medications: No medications were administered Disposition: 21:26 Co-signature as Attending Physician, Karsten Coles MD I agree with the assessment and egnna plan of care. Disposition Summary: 11/05/23 14:29 Discharge Ordered Notes: Location: Home kb Condition: Stable kb Diagnosis - Encounter for exchange of urinary Johns catheter kb Followup: kb - With: Emergency Department - When: As needed - Reason: Worsening of condition Followup: kb - With: Private Physician - When: 2 - 3 days - Reason: Recheck today's complaints, Continuance of care, Re-evaluation by your physician Discharge Instructions: - Discharge Summary Sheet kb - Indwelling Urinary Catheter Care, Adult, [id number] kb Forms: - Medication Reconciliation Form kb - Antibiotic Education kb - Prescription Opioid Use kb - Patient Portal Instructions kb - Leadership Thank You Letter kb Signatures: Brit Zapata, CLIENT TECHNOLOGIES ANALYST-C CLIENT TECHNOLOGIES ANALYST-Karsten Salter MD MD cha Oliver, Kathy, RN RN ko1
[2023-11-05 18:35] VITALS: BP 140/95; TEMP 97; O2SAT 96
== END 2023-11-05 14:50 | disposition home or self-care (01) ==
LOC: ER 13:14
PROC: 0T2BX0Z Change Drainage Device in Bladder, External Approach (ICD-10-PCS; principal; 2023-11-05)
DX: Z46.6 Encounter for fitting and adjustment of urinary device (principal)
CPT/HCPCS: 51702; 99284

== ENCOUNTER 2023-11-20 20:21 | Emergency (ER) | payer OTHER ==
--- NOTE | 2023-11-20 21:53 | ER ---
Nurse's Notes [facility] Name: Mathew Porter Age: 63 yrs Sex: Male : 1960 Arrival Date: 11/20/2023 Time: 20:21 Bed 15 Private MD: Diagnosis: Other mechanical complication of urinary (indwelling) catheter Presentation: 11/19 20:34 Chief complaint: Patient states: "My catheter isn't draining in my bag. When I pee, I mb9 pee my pants and not in the bag.". Coronavirus screen: Vaccine status: Patient reports receiving the 2nd dose of the covid vaccine. Ebola Screen: No symptoms or risks identified at this time. Initial Sepsis Screen: Does the patient meet any 2 criteria? No. Patient's initial sepsis screen is negative. Does the patient have a suspected source of infection? No. Patient's initial sepsis screen is negative. Risk Assessment: Do you want to hurt yourself or someone else? Patient reports no desire to harm self or others. Onset of symptoms was November 20, 2023. 20:34 Acuity: JAMILA 4 mb9 20:34 Method Of Arrival: Ambulatory mb9 Triage Assessment: 20:35 General: Appears in no apparent distress. Behavior is calm, cooperative. Pain: Denies mb9 pain. : Johns in place to gravity drainage. Historical: - Allergies: 20:35 NKA; mb9 - PMHx: 20:35 Schizophrenia; mb9 - PSHx: 20:35 Urolift (December); mb9 - Immunization history:: Adult Immunizations up to date. - Infectious Disease History:: Denies. - Social history:: Smoking status: Patient reports the use of cigarette tobacco products, smokes one pack cigarettes per day. Screenin:00 [facility] ED Fall Risk Assessment (Adult) History of falling in the last 3 months, rg5 including since admission No falls in past 3 months (0 pts) Confusion or Disorientation No (0 pts) Intoxicated or Sedated No (0 pts) Impaired Gait No (0 pts) Mobility Assist Device Used No (0 pt) Altered Elimination No (0 pt) Score/Fall Risk Level 0 - 2 = Low Risk Oriented to surroundings, Maintained a safe environment, Hourly rounding (assess needs \\T\\ fall precautionary measures) done. 21:00 Abuse screen: Denies threats or abuse. Nutritional screening: No deficits noted. rg5 Tuberculosis screening: No symptoms or risk factors identified. Assessment: 20:41 General: Appears in no apparent distress. comfortable. Pain: Denies pain. Neuro: Level rg5 of Consciousness is awake, alert, obeys commands, Oriented to person, place, time. Cardiovascular: Denies chest pain, Heart tones S1 S2 Capillary refill < 3 seconds Patient's skin is warm and dry. Rhythm is regular. Respiratory: Airway is patent Trachea midline Respiratory effort is even, unlabored, Respiratory pattern is regular, symmetrical. GI: Abdomen is flat, non-distended, Abd is soft and non tender. : Johns in place Reports inability to void, since 5pm. EENT: No deficits noted. Derm: No deficits noted. Musculoskeletal: Range of motion: intact in all extremities. Vital Signs: 20:34 BP 150 / 95; Pulse 95; Resp 18; Temp 98; Pulse Ox 100% ; Weight 68.04 kg; Height 5 ft. mb9 9 in. ; Pain 0/10; 20:40 BP 150 / 95; Pulse 86; Resp 17; Temp 98; Pulse Ox 98% on R/A; Pain 0/10; rg5 21:36 BP 145 / 88; Pulse 86; Resp 17; Pulse Ox 100% on R/A; Pain 0/10; rg5 20:34 Body Mass Index 22.15 (68.04 kg, 175.26 cm) mb9 20:34 Pain Scale: Adult mb9 20:40 Pain Scale: Adult rg5 21:36 Pain Scale: Adult rg5 Ob Coma Score: 20:40 Eye Response: spontaneous(4). Motor Response: obeys commands(6). Verbal Response: rg5 oriented(5). Total: 15. ED Course: 20:23 Patient arrived in ED. mr 20:25 Karsten Whitehead PA is PHCP. cp 20:25 Jovani Reed MD is Attending Physician. cp 20:34 Arm band placed on. mb9 20:35 Triage completed. mb9 20:35 Ajith Ramirez, DEENA is Primary Nurse. rg5 21:00 Bed in low position. Call light in reach. Provided Education on: johns catheter care. rg5 Door closed. Assisted with urinal. 21:00 No provider procedures requiring assistance completed. Patient did not have IV access rg5 during this emergency room visit. 21:36 Johns cath inserted, using sterile technique, 18 Fr., by me, balloon inflated, to rg5 gravity drainage, Patient tolerated well. Administered Medications: No medications were administered Medication: 21:38 VIS not applicable for this client. rg5 Outcome: 21:53 Discharge ordered by . holger 22:07 Discharged to home ambulatory, rg5 22:07 Condition: good 22:07 Discharge instructions given to patient, Instructed on discharge instructions, follow up and referral plans. 22:30 Patient left the ED. rg5 Signatures: Rylee Moe, Tab Reg mr Karsten Whitehead PA PA cp Wilkerson, Mary Beth, RN RN mb9 Ajith Ramirez, DEENA RN rg5
--- NOTE | 2023-11-20 21:54 | EDPHYS ---
Physician Documentation [facility] Name: Mathew Porter Age: 63 yrs Sex: Male : 1960 Arrival Date: 11/20/2023 Time: 20:21 Bed 15 Private MD: ED Physician Jovani Reed HPI: 11/19 20:45 This 63 yrs old Male presents to ER via Ambulatory with complaints of Urinary Problem. cp 20:45 The patient presents with a Johns catheter problem, is not draining. Onset: The cp symptoms/episode began/occurred today. 20:45 Associated signs and symptoms: Pertinent negatives: abdominal pain, fever, hematuria, cp vomiting. Severity of symptoms: in the emergency department the symptoms are unchanged, despite home interventions. Historical: - Allergies: 20:35 NKA; mb9 - PMHx: 20:35 Schizophrenia; mb9 - PSHx: 20:35 Urolift (December); mb9 - Immunization history:: Adult Immunizations up to date. - Infectious Disease History:: Denies. - Social history:: Smoking status: Patient reports the use of cigarette tobacco products, smokes one pack cigarettes per day. ROS: 20:50 Constitutional: HX per HPI cp 20:50 Constitutional: Negative for body aches, chills, fever, 20:50 Abdomen/GI: Negative for abdominal pain, nausea and vomiting, diarrhea, 20:50 : Negative for hematuria, testicular pain 20:50 All other systems are negative, Exam: 20:55 Constitutional: The patient appears in no acute distress, alert, awake, comfortable, cp non-toxic, well developed, well nourished, 20:55 Head/Face: Normocephalic, atraumatic. cp 20:55 Eyes: Periorbital structures: appear normal, Conjunctiva: normal, no exudate, no injection, Lids and lashes: appear normal, bilaterally, 20:55 ENT: External ear(s): are unremarkable, Nose: is normal, Mouth: Lips: moist, Oral mucosa: moist, Posterior pharynx: Airway: no evidence of obstruction, patent, 20:55 Chest/axilla: Inspection: normal, 20:55 Cardiovascular: Rate: normal, 20:55 Respiratory: the patient does not display signs of respiratory distress, Respirations: normal, no use of accessory muscles, no retractions, 20:55 Abdomen/GI: Inspection: abdomen appears normal, Palpation: abdomen is soft and non-tender, in all quadrants, 20:55 Neuro: Orientation: to person, place \T\ time. Mentation: is normal, Gait: is steady, at a normal pace, without difficulty, Vital Signs: 20:34 BP 150 / 95; Pulse 95; Resp 18; Temp 98; Pulse Ox 100% ; Weight 68.04 kg; Height 5 ft. mb9 9 in. ; Pain 0/10; 20:40 BP 150 / 95; Pulse 86; Resp 17; Temp 98; Pulse Ox 98% on R/A; Pain 0/10; rg5 21:36 BP 145 / 88; Pulse 86; Resp 17; Pulse Ox 100% on R/A; Pain 0/10; rg5 20:34 Body Mass Index 22.15 (68.04 kg, 175.26 cm) mb9 20:34 Pain Scale: Adult mb9 20:40 Pain Scale: Adult rg5 21:36 Pain Scale: Adult rg5 [place] Coma Score: 20:40 Eye Response: spontaneous(4). Motor Response: obeys commands(6). Verbal Response: rg5 oriented(5). Total: 15. MDM: 20:32 Patient medically screened. cp 21:52 Data reviewed: vital signs, nurses notes, and as a result, I will discharge patient. cp 21:52 Differential diagnosis: UTI, urinary retention, Johns catheter problem. Counseling: I cp had a detailed discussion with the patient and/or guardian regarding the historical points, exam findings, and any diagnostic results supporting the discharge/admit diagnosis, to return to the emergency department if symptoms worsen or persist or if there are any questions or concerns that arise at home. Response to treatment: the patient's symptoms have resolved after treatment, johns catheter replaced. 11/19 20:39 Order name: Johns: please flush; Complete Time: 21:39 cp Administered Medications: No medications were administered Disposition Summary: 11/20/23 21:53 Discharge Ordered Notes: Location: Home cp Problem: new cp Symptoms: have improved cp Condition: Stable cp Diagnosis - Other mechanical complication of urinary (indwelling) catheter cp Followup: cp - With: Private Physician - When: 1 - 2 days - Reason: Worsening of condition Discharge Instructions: - Discharge Summary Sheet cp - Indwelling Urinary Catheter Care, Adult cp Forms: - Medication Reconciliation Form cp - Antibiotic Education cp - Prescription Opioid Use cp - Patient Portal Instructions cp - Leadership Thank You Letter cp Signatures: Karsten Whitehead PA PA cp Wilkerson, Mary Beth RN RN mb9
[2023-11-20 23:14] VITALS: TEMP 98
[2023-11-20 23:18] VITALS: BP 145/88; O2SAT 100
== END 2023-11-20 22:30 | disposition home or self-care (01) ==
LOC: ER 20:21
DX: T83.098A Other mechanical complication of other urinary catheter, initial encounter (principal); F17.210 Nicotine dependence, cigarettes, uncomplicated
CPT/HCPCS: 51702; 99284

== ENCOUNTER 2023-11-21 18:29 | Emergency (ER) | payer OTHER ==
--- NOTE | 2023-11-21 22:01 | ER ---
Nurse's Notes [facility] Name: Mathew Porter Age: 63 yrs Sex: Male : 1960 Arrival Date: 11/21/2023 Time: 18:29 Bed 12 Private MD: Diagnosis: Leakage of urinary (indwelling) catheter Presentation: 11/20 19:32 Chief complaint: Patient states: Pt states he is urinating around his catheter that was tl4 placed in this ED last night. Pt denies pain, feer. Coronavirus screen: At this time, the client does not indicate any symptoms associated with coronavirus-19. Ebola Screen: No symptoms or risks identified at this time. Initial Sepsis Screen: Does the patient meet any 2 criteria? No. Patient's initial sepsis screen is negative. Does the patient have a suspected source of infection? No. Patient's initial sepsis screen is negative. Risk Assessment: Do you want to hurt yourself or someone else? Patient reports no desire to harm self or others. Onset of symptoms was November 21, 2023. 19:32 Method Of Arrival: Ambulatory tl4 19:32 Acuity: JAMILA 3 tl4 Triage Assessment: 19:34 General: Appears in no apparent distress. Behavior is calm, cooperative. Pain: Denies tl4 pain. EENT: No signs and/or symptoms were reported regarding the EENT system. Neuro: Level of Consciousness is awake, alert, obeys commands, Oriented to person, place, time, situation. Cardiovascular: Capillary refill < 3 seconds Patient's skin is warm and dry. Respiratory: Airway is patent Respiratory effort is even, unlabored, Respiratory pattern is regular, symmetrical. GI: No signs and/or symptoms were reported involving the gastrointestinal system. : Reports urinating around urinary catheter. Derm: No signs and/or symptoms reported regarding the dermatologic system. Musculoskeletal: No signs and/or symptoms reported regarding the musculoskeletal system. Historical: - Allergies: 19:33 NKA; tl4 - PMHx: 19:33 Schizophrenia; tl4 - PSHx: 19:33 Urolift (December); tl4 - Immunization history:: Adult Immunizations unknown. - Infectious Disease History:: Denies. - Social history:: Smoking status: Patient reports the use of cigarette tobacco products, smokes one pack cigarettes per day. Screenin:26 [facility] ED Fall Risk Assessment (Adult) History of falling in the last 3 months, le1 including since admission No falls in past 3 months (0 pts) Confusion or Disorientation No (0 pts) Intoxicated or Sedated No (0 pts) Impaired Gait No (0 pts) Mobility Assist Device Used No (0 pt) Altered Elimination Yes (1 pt) Score/Fall Risk Level 0 - 2 = Low Risk Oriented to surroundings, Maintained a safe environment, Educated pt \T\ family on fall prevention, incl call for assistance when getting out of bed, Assessed \T\ reinforced patient's understanding of fall precautions, Hourly rounding (assess needs \T\ fall precautionary measures) done. Abuse screen: Denies threats or abuse. Denies injuries from another. Nutritional screening: No deficits noted. Tuberculosis screening: No symptoms or risk factors identified. Assessment: 21:25 General: Appears in no apparent distress. comfortable, unkempt, Behavior is calm, le1 cooperative. Pain: Denies pain. Neuro: No deficits noted. Cardiovascular: No deficits noted. Respiratory: No deficits noted. : Reports leaking around johns. Vital Signs: 19:32 BP 139 / 91; Pulse 80; Resp 16; Temp 97.1(TE); Pulse Ox 98% ; Weight 68.04 kg; Height 5 tl4 ft. 9 in. ; Pain 0/10; 21:25 BP 157 / 86; Pulse 78; Resp 16; Temp 98.5; Pulse Ox 99% on R/A; Pain 0/10; le1 19:32 Body Mass Index 22.15 (68.04 kg, 175.26 cm) tl4 19:32 Pain Scale: Adult tl4 21:25 Pain Scale: Adult le1 ED Course: 18:33 Patient arrived in ED. mg5 19:33 Triage completed. tl4 19:35 Arm band placed on left wrist. tl4 20:01 Ignacio Gillespie MD is Attending Physician. ec2 21:16 Gregory Cortez, DEENA is Primary Nurse. le1 21:26 Patient has correct armband on for positive identification. Bed in low position. Call le1 light in reach. Side rails up X 1. Provided Education on: use call light for assistance. 22:07 Johns cath removed intact, balloon deflated. le1 22:08 Johns cath inserted, using sterile technique, 20 Fr., by me, balloon inflated, to le1 gravity drainage. 22:08 No provider procedures requiring assistance completed. Patient did not have IV access le1 during this emergency room visit. Administered Medications: No medications were administered Medication: 21:27 VIS not applicable for this client. le1 Outcome: 22:01 Discharge ordered by . ec2 22:08 Discharged to home ambulatory, le1 22:08 Condition: improved 22:08 Discharge instructions given to patient, Instructed on discharge instructions, follow up and referral plans. Demonstrated understanding of instructions, follow-up care, 22:13 Patient left the ED. le1 Signatures: Collette Tamayo mg5 Ignacio Gillespie MD MD ec2 Vince Santos RN RN tl4 Gregory Cortez RN RN le1
--- NOTE | 2023-11-21 22:01 | EDPHYS ---
Physician Documentation [facility] Name: Mathew Porter Age: 63 yrs Sex: Male : 1960 Arrival Date: 11/21/2023 Time: 18:29 Bed 12 Private MD: ED Physician Ignacio Gillespie HPI: 11/20 21:25 This 63 yrs old Male presents to ER via Ambulatory with complaints of Problem ec2 With Urinary Catheter. 21:27 Patient arrives today for issues with his Johns. States he had it replaced last night, ec2 states he is now leaking around the Johns. Patient reports otherwise no other concerns.. Historical: - Allergies: 19:33 NKA; tl4 - PMHx: 19:33 Schizophrenia; tl4 - PSHx: 19:33 Urolift (December); tl4 - Immunization history:: Adult Immunizations unknown. - Infectious Disease History:: Denies. - Social history:: Smoking status: Patient reports the use of cigarette tobacco products, smokes one pack cigarettes per day. ROS: 21:27 Constitutional: as per hpi ec2 Exam: 21:27 Constitutional: GEN: NAD Head: atraumatic Eyes: EOMI Ears: External ears are ec2 normal. CV: regular rate LUNGS: no respiratory distress ABD: non-distended SKIN: no evidence of rashes MSK: no evidence of trauma Vital Signs: 19:32 BP 139 / 91; Pulse 80; Resp 16; Temp 97.1(TE); Pulse Ox 98% ; Weight 68.04 kg; Height 5 tl4 ft. 9 in. ; Pain 0/10; 21:25 BP 157 / 86; Pulse 78; Resp 16; Temp 98.5; Pulse Ox 99% on R/A; Pain 0/10; le1 19:32 Body Mass Index 22.15 (68.04 kg, 175.26 cm) tl4 19:32 Pain Scale: Adult tl4 21:25 Pain Scale: Adult le1 MDM: 20:03 Patient medically screened. ec2 21:27 Data reviewed: vital signs. ED course: Patient arrives today for evaluation of leakage ec2 around his Johns catheter. Examination remarkable well-appearing nontoxic vigorous otherwise in no acute distress we will replace Johns catheter and discharge. . 22:12 ED course: Johns replaced without issue will discharge home. Return precautions given. ec2 Instructed to follow-up with urology.. 11/20 19:35 Order name: Johns: replace johns; Complete Time: 22:07 rn Administered Medications: No medications were administered Disposition Summary: 11/21/23 22:01 Discharge Ordered Notes: Location: Home ec2 Condition: Stable ec2 Diagnosis - Leakage of urinary (indwelling) catheter ec2 Followup: ec2 - With: Private Physician - When: - Reason: Re-evaluation by your physician Discharge Instructions: - Discharge Summary Sheet ec2 - Indwelling Urinary Catheter Insertion at Home, Male ec2 Forms: - Medication Reconciliation Form ec2 - Antibiotic Education ec2 - Prescription Opioid Use ec2 - Patient Portal Instructions ec2 - Leadership Thank You Letter ec2 Signatures: Octavio Perez MD MD rn Corral, Edwin, MD MD ec2 Vince Santos RN RN tl4
[2023-11-21 22:23] VITALS: BP 157/86; TEMP 98.5; O2SAT 99
--- OUTSIDE RECORDS SUMMARY | 2023-11-24 08:57 | XMS REPORT | Continuity of Care Document ---
Author Name Unknown Address [address] [facility] [place]. [address] thconnect Address [address] [facility] [place] 1 495 [place] [address] Care Team Providers Care Academic Guidance Specialist Name Role Phone Salinas Alba I Attending [...] s DA Active U 10-16 00:00: 00 [facility] [place] Encounters Start Date/Time End Date/Time Encounter Type Admission Type Attending Clinicians Care Facility Care Department Encounter ID Source 2023-01-21 06:38:00 2023-01-22 20:00:00 Inpatient EM Salinas Alba [id number] [facility] 2023-01-06 15:12:00 2023-01-11 21:08:00 Inpatient EM Salinas Alba [id number] [facility] 2022-10-16 05:03:00 2022-10-26 19:41:00 Inpatient EM Salinas Alba [id number] [facility] Results Test Description Test Time Test Comments Results Resul t Comments Source - CT ABD PELVIS W/CONT 2023-01-05 8 13:00:00 [facility] : 1960 Sex: M Name: MATHEW CASTILLO [facility] : 1960 Age/S: 62 / M [address] [place] [address] Blvd Unit #: [id number] Loc: [place] [address] Phys: Sofia Cheng ACID PURIFIER Acct: [id number] Dis Date: Status: ADM IN PHONE #: [phone] Exam Date: 01/22/2023 1231 FAX #: [phone] Reason: ABD PAIN EXAMS: CPT CODE: [id number] CT ABD PELVIS W/CONT 61704 EXAM: CT abdomen and pelvis with contrast [...] 1 Signed Report (CONTINUED) Name: MATHEW CASTILLO [facility] : 1960 Age/S: 62 / M [address] [place] [address] Blvd Unit #: [id number] Loc: [place] [address] Phys: Sofia Cheng ACID PURIFIER Acct: [id number] Dis Date: Status: ADM IN PHONE #: [phone] Exam Date: 01/22/2023 1231 FAX #: [phone] Reason: ABD PAIN EXAMS: CPT CODE: [id number] CT ABD PELVIS W/CONT 18538 (Continued) abdominal aortic aneurysm. Pelvic organs/bladder: Moderate [...] M.D. CC: Lakhwinder Guillermo MD; Sofia Cheng ACID PURIFIER; Salinas Dukes MD Technologist:Rick Moran Jr, RT(R)(CT) CTDI: DLP: Trnscb Date/Time: 01/22/2023 (1300) t.SDR.BC0 Orig Print D/T: S: 01/22/2023 (6463) PAGE 2 Signed Report [id number] 07:46:00* Test Item Value Reference Range Interpretation Comme nts PHOSPHOROUS (test code = PHOS) 2.4 MG/DL 2.5-4.9 L [id number] 07:46:00* Test Item Value Reference Range Interpretation Comme nts MAGNESIUM (test code = MAG) 1.69 mg/dL 1.6-2.6 N NOTE: NEW NORMAL RANGE CBC W/AUTO [id number] 07:05:00* Test Item Value Reference Range Interpretation [...] 0.00 x10 3/uL 0.0-0.1 N BASIC METABOLIC [id number] 06:08:00* Test Item Value Reference Range Interpretation [...] CA) 8.2 mg/dL 8.0-10.5 N CBC W/AUTO [id number] 05:57:00* Test Item Value Reference Range Interpretation [...] c ode = MDIFF) NO CBC W/AUTO [id number] 08:15:00* Test Item Value Reference Range Interpretation [...] 0.00 x10 3/uL 0.0-0.1 N BASIC METABOLIC [id number] 07:28:00* Test Item Value Reference Range Interpretation [...] CA) 8.6 mg/dL 8.0-10.5 N BASIC METABOLIC [id number] 07:46:00* Test Item Value Reference Range Interpretation [...] CA) 8.7 mg/dL 8.0-10.5 N CBC W/AUTO [id number] 07:34:00* Test Item Value Reference Range Interpretation [...] 0.00 x10 3/uL 0.0-0.1 N CBC W/AUTO [id number] 08:43:00* Test Item Value Reference Range Interpretation [...] c ode = MDIFF) NO BASIC METABOLIC [id number] 07:14:00* Test Item Value Reference Range Interpretation [...] CA) 7.8 mg/dL 8.0-10.5 L CBC W/AUTO [id number] 08:58:00* Test Item Value Reference Range Interpretation [...] c ode = MDIFF) NO BASIC METABOLIC [id number] 08:27:00* Test Item Value Reference Range Interpretation [...] HGBA1C%) 5.1 %A1C 4.8-6.0 N CBC W/AUTO [id number] 08:05:00* Test Item Value Reference Range Interpretation [...] (test code = MDIFF) NO BASIC METABOLIC [id number] 07:46:00* Test Item Value Reference Range Interpretation [...] = LDL) 104.0 mg/dL 0-100 H <100 UJJWXAV17 0-129 NEAR OPTIMAL/ABOVE [id number] LFKQWCTVOJ601-606 HIGH>JE=789 VERY HIGH*Guidelines provided by the National Cholesterol EducationProgram Adult Treatment Panel III [id number] 07:46:00* Test Item Value Reference Range Interpretation Comme nts PHOSPHOROUS (test code = PHOS) 3.4 MG/DL 2.5-4.9 N [id number] 07:46:00* Test Item Value Reference Range Interpretation Comme nts MAGNESIUM (test code = MAG) 1.69 mg/dL 1.6-2.6 N NOTE: NEW NORMAL RANGE TSH REFLEX TO [id number] 07:46:00* Test Item Value Reference Range Interpretation Comme nts TSH REFLEX TO FT4 (test code = TSHREFLEX) 2.37 IU/mL 0.42-5.47 N LACTIC [id number] 05:48:00* Test Item Value Reference Range Interpretation Comme nts LACTIC ACID (test code = LACT) 1.1 mmol/L 0.4-1.9 N LACTIC ACID [id number] 02:38:00* Test Item Value Reference Range Interpretation Comme nts LACTIC ACID REPEAT (test cod e = LACTR) 0.9 mmol/l 0.4-1.9 N CALLED SEVERINO @01:18 TO REMIND WE NEEDED REPEATLACTIC [id number] 22:36:00* Test Item Value Reference Range Interpretation Comme nts LACTIC ACID (test code = LACT) 2.9 mmol/L 0.4-1.9 H UA RFLX MICR CULT IF [id number] 22:35:00* Test Item Value Reference Range Interpretation [...] Less than 14 days- CT ABD PELVIS W/[id number] 22:24:00 [facility] DOUGLASName: MATHEW CASTILLO : 1960 Sex: M Name: MATHEW CASTILLO [facility] : 1960 Age/S: 62 / M [address] [place] [address] Blvd Unit #: [id number] Loc: [place] [address] Phys: Vee Horton Acct: [id number] Dis Date: Status: [facility] ER PHONE #: [phone] Exam Date: 01/04/2023 0940 FAX #: [phone] Reason: GROSS HEMATURIA EXAMS: CPT CODE: [id number] CT ABD PELVIS W/CONT 36099 H 20 TIME OF STUDY: 01/04/2023 7:55 [...] 1 Signed Report (CONTINUED) Name: MATHEW CASTILLO [facility] : 1960 Age/S: 62 / M [address] [place] [address] Bl Unit #: [id number] Loc: [place] [address] Phys: Vee Horton Acct: [id number] Dis Date: Status: REG ER PHONE #: [phone] Exam Date: 01/04/2023 09 FAX #: [phone] Reason: GROSS HEMATURIA EXAMS: CPT CODE: [id number] CT ABD PELVIS W/CONT 06038 (Continued) at 2224 Reported and signed by: Zia Magaña M.D. CC: Lakhwinder Guillermo MD; Vee Horton; Javier Sullivan MD Technologist:Latoya Moeller, RT(R); Lesvia Humphries CTDI: DLP: Trnscb Date/Time: 01/04/2023 (2223) t.SDR.SI1 Orig Print D/T: S: 01/04/2023 (2226) PAGE 2 Signed ReportCOMPREHENSIVE METABOLIC [id number] 21:07:00* Test Item Value Reference Range Interpretation [...] ALKP) 60 IUnit/L 20-125 N CBC W/AUTO [id number] 20:38:00* Test Item Value Reference Range Interpretation [...] (test code = MDIFF) NO BASIC METABOLIC [id number] 08:30:00* Test Item Value Reference Range Interpretation [...] reported result: 4.9 mg/dLEdited by: KRISTEN on 10/31/22:469225 0829: CA previously reported as: 4.9 *L mg/dL Critical [place] [address]/16/22 Nurse read back result and tech confirmed it's correct? Y GLUCOSE [id number] 17:27:00* Test Item Value Reference Range Interpretation Comme nts GLUCOSE BEDSIDE (test code = GLUBED) 109 MG/DL 70-110 N Performed by teto tse at [facility] GLUCOSE [id number] 12:34:00* Test Item Value Reference Range Interpretation Comme nts GLUCOSE BEDSIDE (test code = GLUBED) 95 MG/DL 70-110 N Performed by cer tified filter operator at [facility] GLUCOSE [id number] 08:49:00* Test Item Value Reference Range Interpretation Comme nts GLUCOSE BEDSIDE (test code = GLUBED) 117 MG/DL 70-110 H Performed by cer tified filter operator at [facility] BASIC METABOLIC [id number] 07:57:00* Test Item Value Reference Range Interpretation [...] = CA) 8.1 mg/dL 8.0-10.5 N GLUCOSE [id number] 17:07:00* Test Item Value Reference Range Interpretation Comme nts GLUCOSE BEDSIDE (test code = GLUBED) 127 MG/DL 70-110 H Performed by cer tified filter operator at [facility] GLUCOSE [id number] 12:26:00* Test Item Value Reference Range Interpretation Comme nts GLUCOSE BEDSIDE (test code = GLUBED) 123 MG/DL 70-110 H Performed by cer tified filter operator at [facility] GLUCOSE [id number] 07:59:00* Test Item Value Reference Range Interpretation Comme nts GLUCOSE BEDSIDE (test code = GLUBED) 92 MG/DL 70-110 N Performed by cer violeta filter operator at [facility] BASIC METABOLIC [id number] 07:38:00* Test Item Value Reference Range Interpretation [...] CA) 7.8 mg/dL 8.0-10.5 L CBC W/AUTO [id number] 07:27:00* Test Item Value Reference Range Interpretation [...] REQUIRED (test code = MDIFF) NO GLUCOSE [id number] 21:25:00* Test Item Value Reference Range Interpretation Comme nts GLUCOSE BEDSIDE (test code = GLUBED) 154 MG/DL 70-110 H Performed by cer tified filter operator at [facility] GLUCOSE [id number] 17:43:00* Test Item Value Reference Range Interpretation Comme nts GLUCOSE BEDSIDE (test code = GLUBED) 73 MG/DL 70-110 N Performed by cer tified filter operator at [facility] GLUCOSE [id number] 10:08:00* Test Item Value Reference Range Interpretation Comme nts GLUCOSE BEDSIDE (test code = GLUBED) 87 MG/DL 70-110 N Performed by cer tified filter operator at [facility] GLUCOSE [id number] 20:12:00* Test Item Value Reference Range Interpretation Comme nts GLUCOSE BEDSIDE (test code = GLUBED) 139 MG/DL 70-110 H Performed by cer tified filter operator at [facility] GLUCOSE [id number] 17:32:00* Test Item Value Reference Range Interpretation Comme nts GLUCOSE BEDSIDE (test code = GLUBED) 79 MG/DL 70-110 N Performed by cer tified filter operator at [facility] GLUCOSE [id number] 12:14:00* Test Item Value Reference Range Interpretation Comme nts GLUCOSE BEDSIDE (test code = GLUBED) 98 MG/DL 70-110 N Performed by cer tified filter operator at [facility] GLUCOSE [id number] 08:36:00* Test Item Value Reference Range Interpretation Comme nts GLUCOSE BEDSIDE (test code = GLUBED) 92 MG/DL 70-110 N Performed by cer tified filter operator at [facility] BASIC METABOLIC [id number] 07:50:00* Test Item Value Reference Range Interpretation [...] code = CA) 7.6 mg/dL 8.0-10.5 L [id number] 07:50:00* Test Item Value Reference Range Interpretation Comme nts MAGNESIUM (test code = MAG) 1.53 mg/dL 1.80-2.40 L - CTA CHEST FOR [id number] 00:00:00 [facility] : 1960 Sex: M Name: MATHEW CASTILLO [facility] : 1960 Age/S: 62 / M [address] [place] [address] Blvd Unit #: [id number] Loc: [place] [address] Phys: Sofia Cheng ACID PURIFIER Acct: [id number] Dis Date:Status: ADM IN PHONE #: [phone] Exam Date: 10/23/2022 1724 FAX #: [phone] Reason: ELEVATED D DIMER EXAMS: CPT CODE: [id number] [place] [address] PROCEDURE INFORMATION: Exam: CTA ChestWith Contrast Exam [...] 1 Signed Report (CONTINUED) Name: MATHEW CASTILLO [facility] : 1960 Age/S: 62 / M [address] [place] [address] Unit #: [id number] Loc: [place] [address] Phys: Sofia Cheng ACID PURIFIER Acct: [id number] Dis Date: Status: ADM IN PHONE #: [phone] Exam Date: 10/23/2022 1727 FAX #: [phone] Reason: ELEVATED D DIMER EXAMS: CPT CODE: [id number] [place] [address] (Continued) flexure compatible with colitis incompletely evaluated. [...] by: Hayden Rg M.D. CC: Sofia Cheng ACID PURIFIER; Salinas Dukes MD Technologist:Latoya Pérez, RT(R)(CT); . CTDI: DLP: Trnscb Date/Time: 10/23/2022 (2012) t.SDR.JT18 Orig PrintD/T: S: 10/23/2022 (2012) PAGE 2 Signed ReportGLUCOSE [id number] 20:23:00* Test Item Value Reference Range Interpretation Comme nts GLUCOSE BEDSIDE (test code = GLUBED) 123 MG/DL 70-110 H Performed by cer tified filter operator at [facility] GLUCOSE [id number] 17:34:00* Test Item Value Reference Range Interpretation Comme nts GLUCOSE BEDSIDE (test code = GLUBED) 132 MG/DL 70-110 H Performed by [facility] tified filter operator at [facility] GLUCOSE [id number] 11:57:00* Test Item Value Reference Range Interpretation Comme nts GLUCOSE BEDSIDE (test code = GLUBED) 118 MG/DL 70-110 H Performed by [facility] tified filter operator at [facility] GLUCOSE [id number] 08:22:00* Test Item Value Reference Range Interpretation Comme nts GLUCOSE BEDSIDE (test code = GLUBED) 100 MG/DL 70-110 N Performed by [facility] tifOndeego filter operator at [facility] BASIC METABOLIC [id number] 08:05:00* Test Item Value Reference Range Interpretation [...] code = CA) 7.8 mg/dL 8.0-10.5 L [id number] 08:05:00* Test Item Value Reference Range Interpretation Comme nts MAGNESIUM (test code = MAG) 1.72 mg/dL 1.80-2.40 L GLUCOSE [id number] 21:10:00* Test Item Value Reference Range Interpretation Comme nts GLUCOSE BEDSIDE (test code = GLUBED) 148 MG/DL 70-110 H Performed by cer tified filter operator at [facility] GLUCOSE [id number] 17:29:00* Test Item Value Reference Range Interpretation Comme nts GLUCOSE BEDSIDE (test code = GLUBED) 102 MG/DL 70-110 N Performed by cer tified filter operator at [facility] GLUCOSE [id number] 11:54:00* Test Item Value Reference Range Interpretation Comme nts GLUCOSE BEDSIDE (test code = GLUBED) 104 MG/DL 70-110 N Performed by [employer] tifOndeego filter operator at [facility] CBC W/MANUAL [id number] 10:35:00* Test Item Value Reference Range Interpretation [...] (test code = PLTMORPH) LARGE PLATELETS GLUCOSE [id number] 07:57:00* Test Item Value Reference Range Interpretation Comme [facility] GLUCOSE BEDSIDE (test code = GLUBED) 95 MG/DL 70-110 N Performed by cer tified filter operator at [facility] C REACTIVE [id number] 07:48:00* Test Item Value Reference Range Interpretation Comme [facility] C REACTIVE PROTEIN (test cod e = CRP) 36.0 mg/L <10.0 H BASIC METABOLIC [id number] 07:40:00* Test Item Value Reference Range Interpretation [...] code = CA) 7.3 mg/dL 8.0-10.5 L [id number] 07:40:00* Test Item Value Reference Range Interpretation Comme nts MAGNESIUM (test code = MAG) 1.50 mg/dL 1.80-2.40 L [id number] 07:04:00* Test Item Value Reference Range Interpretation Comme nts D-DIMER (test code = DDIMER) 5949 ng/mlFEU See_Comment HH Critical result called to Brigido RUIZLAB.JJ1 at 0701 10/21/22Nurse read back result and tech confirmed it's correct? YESTHROMBOSIS AND/OR PULMONARY EMBOLISM AND THE CLINICAL CUT- OFF VALUE FOR EXCLUSION (500 ng/mL FEU) OF THESE CONDITIONSIS VALIDATED BY THE THERAPEUTIC STRATEGY LEAD OF THE METHOD. A NEGATIVE D-DIMER RESULT [...] this result as normal/abnormal. - DUP VEIN [id number] 00:00:00 [facility] HUANGName: MATHEW CASTILLO : 1960 Sex: M Name: MATHEW CASTILLO [facility] Barrera Huang : 1960 Age/S: 62 / M [address] [place] [address] Unit #: [id number] Loc: [place] [address] Phys: Skip Jaffe MD Acct: [id number] Dis Date: Status: ADM IN PHONE #: [phone] Exam Date: 10/21/2022820 FAX #: [phone] Reason: R/o DVT EXAMS: CPT CODE: [id number] DUP VEIN ASAEL 19991 PROCEDURE INFORMATION: Exam: US Duplex Lower Extremity [...] MD; Salinas Paris MD Technologist: Yesica Baker [facility] Date/Time: 10/21/2022 (911) t.SDR.AB61 Orig Print D/T:S: 10/21/2022 (911) Probe: PAGE 1 Signed Report GLUCOSE [id number] 20:40:00* Test Item Value Reference Range Interpretation Comme nts GLUCOSE BEDSIDE (test code = GLUBED) 148 MG/DL 70-110 H Performed by cer tified filter operator at [facility] GLUCOSE [id number] 16:46:00* Test Item Value Reference Range Interpretation Comme nts GLUCOSE BEDSIDE (test code = GLUBED) 118 MG/DL 70-110 H Performed by cer tified filter operator at [facility] GLUCOSE [id number] 16:46:00* Test Item Value Reference Range Interpretation Comme nts GLUCOSE BEDSIDE (test code = GLUBED) 122 MG/DL 70-110 H Performed by cer tified filter operator at [facility] TROP-I HIGH [id number] 15:04:00* Test Item Value Reference Range Interpretation Comme [facility] TROP-I HIGH SENSITIVITY (test code = [...] URL. These results were obtained using [employer] IM TnIHreagent. Results from different methodologies should not becompared to one another as quantitative results and URLs mayvary by method. BASIC METABOLIC [id number] 15:04:00* Test Item Value Reference Range Interpretation [...] CA) 7.1 mg/dL 8.0-10.5 L TROP-I HIGH [id number] 10:07:00* Test Item Value Reference Range Interpretation [...] URL. These results were obtained using [employer] IM TnIHreagent. Results from different methodologies should not becompared to one another as quantitative results and URLs mayvary by method. CBC W/AUTO [id number] 09:54:00* Test Item Value Reference Range Interpretation [...] (test code = MDIFF) NO TROP-I HIGH [id number] 09:24:00* Test Item Value Reference Range Interpretation [...] URL. These results were obtained using [employer] IM TnIHreagent. Results from different methodologies should not becompared to one another as quantitative results and URLs mayvary by method. GLUCOSE [id number] 08:49:00* Test Item Value Reference Range Interpretation Comme nts GLUCOSE BEDSIDE (test code = GLUBED) 102 MG/DL 70-110 N Performed by teto mcdaniel filter operator at [facility] COMPREHENSIVE METABOLIC [id number] 02:08:00* Test Item Value Reference Range Interpretation [...] code = ALKP) 47 IUnit/L 20-125 N [id number] 02:08:00* Test Item Value Reference Range Interpretation [facility] LIPASE (test code = LIP) 57 U/L 13-57 N PROTHROMBIN [id number] 02:05:00* Test Item Value Reference Range Interpretation [facility] PROTHROMBIN TIME PATIENT (test code = [...] Infarction (to prevent recurrent infarct). THROMBOPLASTIN TIME [id number] 02:05:00* Test Item Value Reference Range Interpretation [facility] THROMBOPLASTIN TIME PARTIAL (test code = PTT) 26.1 Seconds 25.0-39.5 N Therapeutic Rang e: 50.4 - 88.3 Seconds Effective 07/21/2018 LACTIC [id number] 01:59:00* Test Item Value Reference Range Interpretation [facility] LACTIC ACID (test code = LACT) 1.1 mmol/L 0.4-1.9 N CBC W/AUTO [id number] 01:51:00* Test Item Value Reference Range Interpretation [facility] WHITE BLOOD CELL (test code = [...] = MDIFF) NO - XR CHEST 1 [id number] 00:00:00 [facility] : 1960 Sex: M FAX: Sofia Cheng NP [phone] [place]: St: [facility] FAX: Salinas Callahan Jacqui [phone] Name: ANNAMATHEW POST [facility] : 1960 Age/S: 62/M [address] [place] [address] Unit #: [id number] Loc:G.6630 [place] [address] Phys: Sofia Cheng NP Acct: [id number] Dis Date: Status: ADM IN PHONE#: [phone] Exam Date: 10/20/2022106 FAX #: [phone] Reason: Sepsis EXAMS: CPT CODE: [id number] XR CHEST 1 V 22341 PROCEDURE INFORMATION: Exam: XR Chest Exam date [...] by: Reinaldo Jacobs M.D. CC: Sofia Cheng ACID PURIFIER; Salinas Dukes MD Technologist: PELON SilverR) Trnscrd Date/Time/By: 10/20/2022 (213) : By: [id number] Orig Print D/T: S: 10/20/2022 (5) PAGE 1 Signed ReportGLUCOSE [id number] 21:00:00* Test Item Value Reference Range Interpretation Comme nts GLUCOSE BEDSIDE (test code = GLUBED) 135 MG/DL 70-110 H Performed by cer tified filter operator at [facility] URINALYSIS [id number] 20:03:00* Test Item Value Reference Range Interpretation [...] MUCU) 1+ /LPF NONE SEEN UR SODIUM [id number] 20:03:00* Test Item Value Reference Range Interpretation Comme nts UR SODIUM RANDOM (test code = ALPHONSE) 102 MEQ/L The Reference Ra nge and Method Performance specificationshave not been established for this fluid. The test resultshould be correlated into the clinical context forinterpretation. UR PROTEIN [id number] 20:03:00* Test Item Value Reference Range Interpretation Comme nts UR PROTEIN RANDOM (test code = PROTU) 79 mg/dL UR CREATININE [id number] 20:03:00* Test Item Value Reference Range Interpretation Comme nts UR CREATININE RANDOM (test code = CREATU) 111.9 mg/dL The Reference Ra nge and Method Performance specificationshave not been established for this fluid. The test resultshould be correlated into the clinical context forinterpretation. UR OSMOLALITY [id number] 20:03:00* Test Item Value Reference Range Interpretation Comme nts UR OSMOLALITY RANDOM (test c ode = OSMOU) 575 MOS/KG 300-1000 UR OSMOLALITY [id number] 20:02:00* Test Item Value Reference Range Interpretation Comme nts UR OSMOLALITY RANDOM (test c ode = OSMOU) 575 MOS/KG 300-1000 N GLUCOSE [id number] 17:18:00* Test Item Value Reference Range Interpretation Comme nts GLUCOSE BEDSIDE (test code = GLUBED) 122 MG/DL 70-110 H Performed by cer tified filter operator at [facility] GLUCOSE [id number] 12:48:00* Test Item Value Reference Range Interpretation Comme nts GLUCOSE BEDSIDE (test code = GLUBED) 109 MG/DL 70-110 N Performed by cer tified filter operator at [facility] GLUCOSE [id number] 07:53:00* Test Item Value Reference Range Interpretation Comme nts GLUCOSE BEDSIDE (test code = GLUBED) 96 MG/DL 70-110 N Performed by Cellmem[employer]ied filter operator at [facility] BASIC METABOLIC [id number] 07:51:00* Test Item Value Reference Range Interpretation [...] code = CA) 7.5 mg/dL 8.0-10.5 L [id number] 07:51:00* Test Item Value Reference Range Interpretation Comme nts MAGNESIUM (test code = MAG) 1.65 mg/dL 1.80-2.40 L CBC W/AUTO [id number] 07:07:00* Test Item Value Reference Range Interpretation [...] (test c ode = MDIFF) NO GLUCOSE [id number] 20:44:00* Test Item Value Reference Range Interpretation Comme nts GLUCOSE BEDSIDE (test code = GLUBED) 116 MG/DL 70-110 H Performed by cer tified filter operator at [facility] GLUCOSE [id number] 18:07:00* Test Item Value Reference Range Interpretation Comme nts GLUCOSE BEDSIDE (test code = GLUBED) 98 MG/DL 70-110 N Performed by cer tified filter operator at [facility] GLUCOSE [id number] 12:23:00* Test Item Value Reference Range Interpretation Comme nts GLUCOSE BEDSIDE (test code = GLUBED) 135 MG/DL 70-110 H Performed by cer tified filter operator at [facility] GLUCOSE [id number] 11:22:00* Test Item Value Reference Range Interpretation Comme nts GLUCOSE BEDSIDE (test code = GLUBED) 104 MG/DL 70-110 N Performed by cer tified filter operator at [facility] BASIC METABOLIC [id number] 08:12:00* Test Item Value Reference Range Interpretation [...] code = CA) 7.4 mg/dL 8.0-10.5 L [id number] 08:12:00* Test Item Value Reference Range Interpretation Comme nts MAGNESIUM (test code = MAG) 1.48 mg/dL 1.80-2.40 L CBC W/AUTO [id number] 08:09:00* Test Item Value Reference Range Interpretation [...] (test c ode = MDIFF) NO GLUCOSE [id number] 05:56:00* Test Item Value Reference Range Interpretation Comme nts GLUCOSE BEDSIDE (test code = GLUBED) 104 MG/DL 70-110 N Performed by cer tified filter operator at [facility] GLUCOSE [id number] 03:31:00* Test Item Value Reference Range Interpretation Comme nts GLUCOSE BEDSIDE (test code = GLUBED) 129 MG/DL 70-110 H Performed by cer tified filter operator at [facility] GLUCOSE [id number] 12:50:00* Test Item Value Reference Range Interpretation Comme nts GLUCOSE BEDSIDE (test code = GLUBED) 177 MG/DL 70-110 H Performed by cer tified filter operator at [facility] CBC W/AUTO [id number] 10:14:00* Test Item Value Reference Range Interpretation [...] 0.00 x10 3/uL 0.0-0.1 N VITAMIN D [id number] 08:19:00* Test Item Value Reference Range Interpretation Comme nts VITAMIN D 25-HYDROXY (test c ode = VITD25) 25.5 ng/mL 30-100 L Indication for Test: PTH DisorderCOMPREHENSIVE METABOLIC [id number] 08:14:00* Test Item Value Reference Range Interpretation [...] code = ALKP) 62 IUnit/L 20-125 N [id number] 08:14:00* Test Item Value Reference Range Interpretation Comme nts PHOSPHOROUS (test code = PHOS) 2.6 MG/DL 2.5-4.9 N [id number] 08:14:00* Test Item Value Reference Range Interpretation Comme nts MAGNESIUM (test code = MAG) 1.50 mg/dL 1.80-2.40 L GLUCOSE [id number] 07:40:00* Test Item Value Reference Range Interpretation Comme nts GLUCOSE BEDSIDE (test code = GLUBED) 105 MG/DL 70-110 N Performed by cer tified filter operator at [facility] GLUCOSE [id number] 17:26:00* Test Item Value Reference Range Interpretation Comme [facility] GLUCOSE BEDSIDE (test code = GLUBED) 113 MG/DL 70-110 H Performed by cer violeta filter operator at [facility] PROTHROMBIN [id number] 15:23:00* Test Item Value Reference Range Interpretation Comme [facility] PROTHROMBIN TIME PATIENT (test code = [...] (to prevent recurrent infarct). TSH REFLEX TO [id number] 14:32:00* Test Item Value Reference Range Interpretation Comme [facility] TSH REFLEX TO FT4 (test code = TSHREFLEX) 1.59 IU/mL 0.42-5.47 N [id number]%2022-10-16 14:19:00* Test Item Value Reference Range Interpretation Comme [facility] HGBA1C% (test code = HGBA1C%) 5.5 %A1C 4.8-6.0 N [id number] 14:13:00* Test Item Value Reference Range Interpretation Comme [facility] MAGNESIUM (test code = MAG) 1.91 mg/dL 1.80-2.40 N COMPREHENSIVE METABOLIC [id number] 14:13:00* Test Item Value Reference Range Interpretation Comme [facility] SODIUM (test code = NA) 138 [...] = ALKP) 62 IUnit/L 20-125 N GLUCOSE [id number] 12:54:00* Test Item Value Reference Range Interpretation Comme nts GLUCOSE BEDSIDE (test code = GLUBED) 102 MG/DL 70-110 N Performed by cer tified filter operator at [facility] GLUCOSE [id number] 10:14:00* Test Item Value Reference Range Interpretation Comme nts GLUCOSE BEDSIDE (test code = GLUBED) 110 MG/DL 70-110 N Performed by [place] filter operator at [facility] CBC W/AUTO [id number] 05:58:00* Test Item Value Reference Range Interpretation [...] Notes Date/Time Note Provider Source 2023-02-14 02:12:00 [facility] ([facility]) Discharge Summary REPORT#:[id number] REPORT STATUS: Signed REPORT INITIALIZATION DATE:02/14/23 TIME: 211 PATIENT: MATHEW CASTILLO UNIT #: [id number] ROOM/BED: [address] : 59 AGE: 62 SEX: [...] BPH-s/p UroLift 01/03/2023, schizophrenia was transferred from [facility] with acute kidney injury and urinary retention. 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 )( Diet: Regular Follow-up Appointments PCP follow up: PCP: Lakhwinder Guillermo MD PCP follow up timeframe: In 5 days Attending Physician: Attending Physician: Salinas Alba MD Attending physician follow up timeframe: In 1-2 weeks Consulting provider 1: Provider 1: Dave He MD Specialty: Urology Consult follow up timeframe: In 1-[address] [place] [address] #:[id number] END OF REPORT [facility] 2023-02-04 04:06:00 [facility] ([facility]) Discharge Summary REPORT#:[id number] REPORT STATUS: Signed REPORT INITIALIZATION DATE:02/04/23 TIME: 040 PATIENT: MATHEW CASTILLO UNIT #: [id number] ROOM/BED: [place] [address] : 59 AGE: 62 SEX: M ATTEND: [...] lift yesterday by Dr. 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, oriented X 3 Skin: dry, intact, [...] % (Auto) (14.0 - 32.0 %) 20.8 Craig % (Auto) (4.8 - 9.0 %) 7.7 Eos % (Auto) (0.3 - 3.7 %) 8.1 H Baso % (Auto) (0.0 - 2.0 %) 0.7 Neut # (Auto) (2.0 - 7.6 x10 3/uL) 4.51 Lymph # (Auto) (1.0 - 3.8 x10 3/uL) 1.51 Craig # (Auto) (0.1 - 0.8 x10 3/uL) [...] 3/uL) 0.[address] ABD PELVIS W/CONT 79404 H 20 TIME OF STUDY: 01/04/2023 7:55 [...] Discharge Instructions Additional Discharge Routines: PCP Follow-Up, 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 )( Diet: Cardiac Follow-up Appointments PCP follow up: PCP: Lakhwinder Guillermo MD PCP follow up timeframe: In 5 days Special instructions: CALL TO MAKE APPOINTMENT Consulting provider 1: Provider 1: Dave He MD Specialty: Urology Special instructions: CALL TO SCHEDULE APPOINTMENT at 0735 [facility] #:[id number] END OF REPORT [facility] 2023-01-27 18:31:00 [phone] [address] PATIENT NAME: MATHEW CASTILLO ADMIT DATE: 01/06/23 ACCOUNT NO: [id number] ROOM NO: G.C146 AGE: 62 REPORT TYPE: 360 - QUERY RESPONSE DOCUMENT SEX: M ADMITTING PHYSICIAN:Salinas Alba MD ATTENDING PHYSICIAN:Salinas Alba MD Provider Query QUERY TEXT: Condition General 360MD Query related questions should be directed to: [facility] Coding Query Helpline [Based on the [...] AM at 1831 PATIENT NAME: MATHEW CASTILLO [facility] 2023-01-27 13:09:00 [id number] [address] PATIENT NAME: MATHEW CASTILLO ADMIT DATE: 01/06/23 ACCOUNT NO: [id number] ROOM NO: G.C146 AGE: 62 REPORT TYPE: 360 - QUERY RESPONSE DOCUMENT SEX: M ADMITTING PHYSICIAN:Salinas Alba MD ATTENDING PHYSICIAN:Salinas Alba MD Provider Query QUERY TEXT: Condition General 360MD Query related questions should be directed to: [facility] Coding Query Helpline [Based on your medical judgement and the clinical indicators listed below kindly specify the underlying cause of the patient's heamaturia(Hematuria due to bladder lift surgery, hematuria due to UTI, hematuria unspecified, or other more appropriate diagnosis)?.] The patient's Clinical Indicators include: 62-year-old male with last medical history of, BPH, s/p bladder lift yesterdayby Dr. He transferred from [place] for urology evaluation secondary tohematuria after bladder [...] AM at 1309 PATIENT NAME: MATHEW CASTILLO [facility] 2023-01-27 13:09:00 [id number] [place] [address] PATIENT NAME: MATHEW CASTILLO ADMIT DATE: 01/06/23 ACCOUNT NO: [id number] ROOM NO: [facility]6 AGE: 62 REPORT TYPE: 360 - QUERY RESPONSE DOCUMENT SEX: M ADMITTING PHYSICIAN:Salinas Alba MD ATTENDING PHYSICIAN:Salinas Alba MD Provider Query QUERY TEXT: Condition General 360MD Query related questions should be directed to: [facility] Coding Query Helpline [Based on your [...] culture, likely could be either contaminant or representative personal service of transient bacteremia: progress note 01/11/2023 Options provided: -- Respond - Create new note now -- Dismiss - Not applicable / Not valid -- Dismiss - Clinically unable to determine / Unknown -- Assign to another provider QUERY RESPONSE: sepsis was not confirmed, patient had localized infection Query created by: MADY PEREZ on 01/22/2023 3:09 AM at 1309 PATIENT NAME: MATHEW CASTILLO [facility] 2023-01-22 17:40:00 [facility] Internal Medicine Prog. Note REPORT#:[id number] REPORT STATUS: Signed REPORT INITIALIZATION DATE:01/22/23 TIME: 1739 PATIENT: MATHEW CASTILLO UNIT #: [id number] ROOM/BED: [place] [address] : 59 AGE: 62 SEX: M ATTEND: Salinas Alba MD ADM AUTHOR: Sofia Cheng ACID PURIFIER REPT SERVICE DT/TIME: 01/22/231739 * ALL edits [...] Sodium Chloride (SODIUM CHLORIDE 0.9%) 1,000 ML .[id number] IV Haloperidol (HALDOL) 10 MG BID PO [...] (Auto) (14.0 - 32.0 %) 9.8 L Craig % (Auto) (4.8 - 9.0 %) 9.0 Eos % (Auto) (0.3 - 3.7 %) 5.7 H Baso % (Auto) (0.0 - 2.0 %) 0.4 Neut # (Auto) (2.0 - 7.6 x10 3/uL) 7.35 Lymph # (Auto) (1.0 - 3.8 x10 3/uL) 0.97 L Craig # (Auto) (0.1 - 0.8 x10 3/uL) [...] discharged see discharge summery at 2132 RPT #:[id number] END OF REPORT [facility] 2023-01-22 12:19:00 [facility]) Nephrology Consultation Note REPORT#:[id number] REPORT STATUS: Signed REPORT INITIALIZATION DATE:01/22/23 TIME: 1219 PATIENT: MATHEW CASTILLO UNIT #: [id number] ROOM/BED: [place] [address] : 59 AGE: 62 SEX: M ATTEND: [...] patient given empirc abx and transferred to [facility] yesterday for further evaluation and management. [...] Time Status Admin Sodium Chloride 1,000 ML .[id number] 01/21 2330 AC 01/22 (SODIUM CHLORIDE IV [...] Sodium Chloride (SODIUM CHLORIDE 0.9%) 1,000 ML .[id number] IV Haloperidol (HALDOL) 10 MG BID PO [...] (Auto) (14.0 - 32.0 %) 9.8 L Craig % (Auto) (4.8 - 9.0 %) 9.0 Eos % (Auto) (0.3 - 3.7 %) 5.7 H Baso % (Auto) (0.0 - 2.0 %) 0.4 Neut # (Auto) (2.0 - 7.6 x10 3/uL) 7.35 Lymph # (Auto) (1.0 - 3.8 x10 3/uL) 0.97 L Craig # (Auto) (0.1 - 0.8 x10 3/uL) [...] and . at 1923 at 1933 RPT #:[id number] END OF REPORT [facility] 2023-01-21 19:40:00 [facility] ([facility]) Urology Consult Note REPORT#:[id number] REPORT STATUS: Signed REPORT INITIALIZATION DATE:01/21/23 TIME: 1939 PATIENT: MATHEW CASTILLO UNIT #: [id number] ROOM/BED: [facility]-1 : 59 AGE: 62 SEX: M ATTEND: Salinas Alba MD ADM AUTHOR: Crystal Alberts MD REPT SERVICE DT/TIME: 10/17/23 1940 * ALL edits or amendments must be made on the electronic/computer document * History of Present Illness HPI Requesting clinician: Dr. Fernanda uDkes Reason for consult: Urinary retention Chief complaint: [...] at outside hospital and was transferred to [place] with acute renal failure and urinary retention. Outside labs showed creatinine of 5.6, GFR 11. They were able to place a catheter at the outside hospital and his creatinine currently is 2.6 GFR 27. Patient feels overall well he has a [address] that is patent and [...] (Auto) (14.0 - 32.0 %) 7.1 L Craig % (Auto) (4.8 - 9.0 %) 8.1 Eos % (Auto) (0.3 - 3.7 %) 0.4 Baso % (Auto) (0.0 - 2.0 %) 0.1 Neut # (Auto) (2.0 - 7.6 x10 3/uL) 9.37 H Lymph # (Auto) (1.0 - 3.8 x10 3/uL) 0.79 L Craig # (Auto) (0.1 - 0.8 x10 3/uL) [...] in outside hospital and was transferred to [place]. He has indwelling Black placed from the outside hospital that is patent and draining clear urine. Creatinine has down trended to 2.6 from 5.6. -Continue indwelling Black do not remove -Trend creatinine -Discussed patient to follow-up with our clinic 01/30/2023 for nurse visit catheter removal and CIC teaching for which he was amenable to trying Crystal Alberts MD -covering for Dr. He [facility] at 7148 RPT #:[id number] END OF REPORT [facility] 2023-01-21 10:48:00 [facility] ([facility]) History Physical - Adult REPORT#:[id number] REPORT STATUS: Signed REPORT INITIALIZATION DATE:01/21/23 TIME: 104 PATIENT: MATHEW CASTILLO UNIT #: [id number] ROOM/BED: 5507-1 : 59 AGE: 62 SEX: M ATTEND: Salinas Alba MD ADM AUTHOR: Sofia Cheng NP REPT SERVICE DT/TIME: 01/21/23 1048 * ALL edits or amendments must be made on the electronic/computer document * History of Present Illness HPI Chief complaint: Acute kidney injury Urinary retention HPI: 62-year-old male with last medical history of, BPH-s/p UroLift 01/03/2023, schizophrenia was transferred from [facility] with acute kidney injury and urinary retention. 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, oriented X 3 Skin: dry, intact, [...] (Auto) (14.0 - 32.0 %) 7.1 L Craig % (Auto) (4.8 - 9.0 %) 8.1 Eos % (Auto) (0.3 - 3.7 %) 0.4 Baso % (Auto) (0.0 - 2.0 %) 0.1 Neut # (Auto) (2.0 - 7.6 x10 3/uL) 9.37 H Lymph # (Auto) (1.0 - 3.8 x10 3/uL) 0.79 L Craig # (Auto) (0.1 - 0.8 x10 3/uL) 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, oriented X 3 Skin: dry, intact, no gross abnormalities Psychiatry: Mild anxiety Diagnosis, Assessment Plan Free Text DxA P Notes Free Text DxA P Notes: Assessment: 62-year-old male with last medical history of, BPH-s/p UroLift 01/03/2023, schizophrenia was transferred from [facility] ER with acute kidney injury [...] clinical course at 0300 at 1108 RPT #:[id number] END OF REPORT [facility] 2023-01-21 05:27:00 [facility] ([facility]) EMERGENCY PROVIDER REPORT REPORT#:[id number] REPORT STATUS: Signed DATE:01/21/23 TIME: 526 PATIENT: MATHEW CASTILLO UNIT #: [id number] ROOM/BED: 5507-1 AGE: 62 SEX: M PCP PHYS: Lakhwinder Guillermo MD SERVICE AUTHOR: Elizabeth Davenport APRNNP * ALL edits or amendments must be made on the electronic/computer document * Elizabeth Davenport 01/21/23526: HPI-General Illness Free Text HPI Notes Free Text HPI Notes 62-year-old male with PMH as listed below presents to the ER as a transfer from [facility] for diagnoses of ARF, urinary retention. Patient [...] 56 and 1 L normal saline bolus CORE ANALYST upon arrival, patient notes improved but not completely resolved lower abdominal pain. He denies any additional symptoms such as recent fever, chest pain, shortness of breath, N/V/D/C, testicular pain or any other symptoms. General Initial Greet Date/Time 01/21/23513 PCP iliana he, PCP, [facility] Presentation Chief [...] No palpable masses or pulsatile masses. Negative [place] Sign. No TTP at [place] : [...] (Auto) (14.0 - 32.0 %) 7.1 L Craig % (Auto) (4.8 - 9.0 %) 8.1 Eos % (Auto) (0.3 - 3.7 %) 0.4 Baso % (Auto) (0.0 - 2.0 %) 0.1 Neut # (Auto) (2.0 - 7.6 x10 3/uL) 9.37 H Lymph # (Auto) (1.0 - 3.8 x10 3/uL) 0.79 L Craig # (Auto) (0.1 - 0.8 x10 3/uL) [...] the patient along with involvement of the PA/ACID PURIFIER. I agree with the PA/ironer or presser findings and plan. I have performed all aspects of MDM as documented including: evaluation of the patient/ patient's condition(s), review and analysis of available data, and determination of risk of patient management decisions. at 2244 at 1025 RPT #:[id number] END OF REPORT [facility] 2023-01-15 09:31:00 [id number] [place] [address] PATIENT NAME: MATHEW CASTILLO ADMIT DATE: 01/06/23 ACCOUNT NO: [id number] ROOM NO: G.C146 AGE: 62 REPORT TYPE: 360 - QUERY RESPONSE DOCUMENT SEX: M ADMITTING PHYSICIAN:Salinas Alba MD ATTENDING PHYSICIAN:Salinas Alba MD Provider Query QUERY TEXT: Clarification Rule In Rule Out 360MD Query related questions should be directed to: [facility] Coding Query Help-line Based on your [...] AM at 0931 PATIENT NAME: MATHEW CASTILLO [facility] 2023-01-11 17:08:00 [id number] [address] PATIENT NAME: MATHEW CASTILLO ADMIT DATE: 01/06/23 ACCOUNT NO: [id number] ROOM NO: G.C146 AGE: 62 REPORT TYPE: [...] he was admitted through Emergency Room to [facility] facility in [place], and from there, he was transferred to [facility]. The patient PATIENT NAME: MATHEW CASTILLO was evaluated by Urology Service. He was placed on broad-spectrum IV antibiotics. His urine culture has shown growth of Pseudomonas aeruginosa and 1 out of 2 blood culture has shown growth of Enterococcus faecalis. The Enterococcus faecalis growing in 1 blood culture, likely could be either contaminant or representative personal service of transient bacteremia. Clinically is doing fairly [...] Date Transcribed: 01/11/2023 18:52:55 ESTRADA/JORGE Receipt ID: [id number] Authenticated and Edited by Skip Jaffe MD On 01/22/23 5:19:12 AM at 0520 PATIENT NAME: MATHEW CASTILLO [facility] 2023-01-10 21:43:00 [facility] ([facility]) Internal Medicine Prog. Note REPORT#:[id number] REPORT STATUS: Signed REPORT INITIALIZATION DATE:01/10/23 TIME: 2142 PATIENT: MATHEW CASTILLO UNIT #: [id number] ROOM/BED: [place] [address] : 59 AGE: 62 SEX: M ATTEND: Salinas Alba MD ADM AUTHOR: Sofia Cheng ACID PURIFIER REPT SERVICE DT/TIME: 01/10/232142 * ALL edits or amendments must be made on the electronic/computer document * Subjective Chief complaint: Hematuria HPI: 62-year-old male with last medical history of, BPH, s/p bladder lift yesterday by Dr. He transferred from [place] for urology evaluation secondary to hematuria after [...] Sodium Chloride (SODIUM CHLORIDE 0.9%) 1,000 ML .[id number] IV (DC) Sodium Chloride (SODIUM CHLORIDE 0.9%) 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 He transferred from [place] for urology evaluation secondary to hematuria after [...] urology outpatient at 0024 at 0814 RPT #:[id number] END OF REPORT [facility] 2023-01-10 20:39:00 [facility] ([facility]) Infectious Dis. Progress Note REPORT#:[id number] REPORT STATUS: Signed REPORT INITIALIZATION DATE:01/10/23 TIME: 2038 PATIENT: MATHEW CASTILLO UNIT #: [id number] ROOM/BED: [place] [address] : 59 AGE: 62 SEX: M ATTEND: [...] rods identified as Pseudomonas aeruginosa which is stvoer sensitive. Currently on IV Zosyn. Repeat blood cultures x2 done on January 08, 2023 are negative so far at 24 hours of incubation.. In view of the enterococcal bacteremia and Pseudomonas aeruginosa the associated urinary tract infection we will continue the patient on IV Zosyn. If repeat blood cultures remain negative then we will consider discharging him home on oral ciprofloxacin. at 0244 [facility] #:[id number] END OF REPORT [facility] 2023-01-10 08:39:00 [id number] [place] [id number] PATIENT NAME: MATHEW CASTILLO ADMIT DATE: 01/06/23 ACCOUNT NO: [id number] ROOM NO: [facility] AGE: 62 REPORT TYPE: PROGRESS [...] Date Transcribed: 01/10/2023 09:42:11 ESTRADA/KYLE Receipt ID: [id number] Authenticated and Edited by Skip Jaffe MD On 01/22/23 5:19:04 AM at 0520 PATIENT NAME: MATHEW CASTILLO [facility] 2023-01-09 22:29:00 [facility] ([facility]) Internal Medicine Prog. Note REPORT#:[id number] REPORT STATUS: Signed REPORT INITIALIZATION DATE:01/09/23 TIME: 2228 PATIENT: MATHEW CASTILLO UNIT #: [id number] ROOM/BED: [place] [address] : [birth year] AGE: 62 SEX: M ATTEND: Salinas Alba MD ADM AUTHOR: Sofia Cheng NP REPT SERVICE DT/TIME: 01/09/232228 * ALL edits or amendments must be made on the electronic/computer document * Subjective Chief complaint: Hematuria HPI: 62-year-old male with last medical history of, BPH, s/p bladder lift yesterday by Dr. He transferred from [place] for urology evaluation secondary to hematuria after [...] Sodium Chloride (SODIUM CHLORIDE 0.9%) 1,000 ML .[id number] IV Sodium Chloride (SODIUM CHLORIDE 0.9%) 1,000 ML BOLUS IV Results Findings/Data: Laboratory Tests 01/09/23548: [Embedded Image Not Available] Laboratory Tests 01/09 [...] % (Auto) (14.0 - 32.0 %) 20.8 Craig % (Auto) (4.8 - 9.0 %) 7.7 Eos % (Auto) (0.3 - 3.7 %) 8.1 H Baso % (Auto) (0.0 - 2.0 %) 0.7 Neut # (Auto) (2.0 - 7.6 x10 3/uL) 4.51 Lymph # (Auto) (1.0 - 3.8 x10 3/uL) 1.51 Craig # (Auto) (0.1 - 0.8 x10 3/uL) 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 He transferred from [place] for urology evaluation secondary to hematuria after [...] present care at 2359 at 1240 RPT #:[id number] END OF REPORT [facility] 2023-01-09 19:20:00 [facility] Infectious Dis. Progress Note REPORT#:[id number] REPORT STATUS: Signed REPORT INITIALIZATION DATE:01/09/23 TIME: 1919 PATIENT: MATHEW CASTILLO UNIT #: [id number] ROOM/BED: [facility]6-1 : 59 AGE: 62 SEX: M ATTEND: [...] home on oral ciprofloxacin. at 0432 RPT #:[id number] END OF REPORT [facility] 2023-01-09 18:36:00 [id number] [place] [address] PATIENT NAME: MATHEW CASTILLO ADMIT DATE: 01/06/23 ACCOUNT NO: [id number] ROOM NO: G.C146 AGE: 62 REPORT TYPE: [...] was PATIENT NAME: MATHEW CASTILLO admitted to [place], and from there, he was transferred to [facility] for urology followup. The patient was on [...] Dictated: 01/09/2023 18:36:08 Date Transcribed: 01/09/2023 20:19:12 /[facility] [place] [place] Receipt ID: [id number] Authenticated and Edited by Skip Jaffe MD On 01/22/23 5:18:55 AM at 0520 PATIENT NAME: MATHEW CASTILLO [facility] 2023-01-09 11:30:00 [facility] ([facility]) Urology Progress Note REPORT#:[id number] REPORT STATUS: Signed REPORT INITIALIZATION DATE:01/09/23 TIME: 113 PATIENT: MATHEW CASTILLO UNIT #: [id number] ROOM/BED: [place] [address] : 59 AGE: 62 SEX: M ATTEND: [...] as planned in clinic at 1131 RPT #:[id number] END OF REPORT [facility] 2023-01-08 21:19:00 [facility] ([facility]) Internal Medicine Prog. Note REPORT#:[id number] REPORT STATUS: Signed REPORT INITIALIZATION DATE:01/08/23 TIME: 2118 PATIENT: MATHEW CASTILLO UNIT #: [id number] ROOM/BED: [place] [address] : 58 AGE: 62 SEX: M ATTEND: Salinas Alba MD ADM AUTHOR: Sofia Cheng ACID PURIFIER REPT SERVICE DT/TIME: 01/08/232118 * ALL edits or amendments must be made on the electronic/computer document * Subjective Chief complaint: Hematuria HPI: 62-year-old male with last medical history of, BPH, s/p bladder lift yesterday by Dr. He transferred from [place] for urology evaluation secondary to hematuria after [...] Sodium Chloride (SODIUM CHLORIDE 0.9%) 1,000 ML .[id number] IV Sodium Chloride (SODIUM CHLORIDE 0.9%) 1,000 [...] % (Auto) (14.0 - 32.0 %) 22.3 Craig % (Auto) (4.8 - 9.0 %) 6.9 Eos % (Auto) (0.3 - 3.7 %) 9.9 H Baso % (Auto) (0.0 - 2.0 %) 0.9 Neut # (Auto) (2.0 - 7.6 x10 3/uL) 3.89 Lymph # (Auto) (1.0 - 3.8 x10 3/uL) 1.46 Craig # (Auto) (0.1 - 0.8 x10 3/uL) 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 He transferred from [place] for urology evaluation secondary to hematuria after [...] cultures, continue medications and present care at 2355 at 8190 RPT #:[id number] END OF REPORT [facility] 2023-01-08 18:59:00 [facility] ([facility]) Infectious Dis. Progress Note REPORT#:[id number] REPORT STATUS: Signed REPORT INITIALIZATION DATE:01/08/23 TIME: 1858 PATIENT: MATHEW CASTILLO UNIT #: [id number] ROOM/BED: [facility]-1 : 59 AGE: 62 SEX: M ATTEND: Salinas Alba MD ADM AUTHOR: Skip Jaffe MD REPT SERVICE DT/TIME: 01/08/23 1997 * ALL edits or amendments must be [...] home on oral ciprofloxacin. at 0321 RPT #:[id number] END OF REPORT [facility] 2023-01-08 18:22:00 [id number] [facility] on [address] [address] PATIENT NAME: MATHEW CASTILLO ADMIT DATE: 01/06/23 ACCOUNT NO: [id number] ROOM NO: [facility] AGE: 62 REPORT TYPE: PROGRESS [...] Dictated By: Skip Jaffe MD Date Dictated: 01/08/2023 18:22:31 Date Transcribed: 01/08/2023 19:55:35 /[facility] – [place] Receipt ID: [id number] Authenticated and Edited by Skip Jaffe MD On 01/22/23 5:18:46 AM at 0520 PATIENT NAME: MATHEW CASTILLO [facility] 2023-01-08 17:58:00 [facility] ([facility]) Urology Progress Note REPORT#:[id number] REPORT STATUS: Signed REPORT INITIALIZATION DATE:01/08/23 TIME: 1757 PATIENT: MATHEW CASTILLO UNIT #: [id number] ROOM/BED: [place] [address] : 59 AGE: 62 SEX: M ATTEND: Salinas Alba MD ADM AUTHOR: Dave He MD REPT SERVICE DT/TIME: 01/08/23 8958 * ALL edits or amendments must be [...] % (Auto) (14.0 - 32.0 %) 22.3 Craig % (Auto) (4.8 - 9.0 %) 6.9 Eos % (Auto) (0.3 - 3.7 %) 9.9 H Baso % (Auto) (0.0 - 2.0 %) 0.9 Neut # (Auto) (2.0 - 7.6 x10 3/uL) 3.89 Lymph # (Auto) (1.0 - 3.8 x10 3/uL) 1.46 Craig # (Auto) (0.1 - 0.8 x10 3/uL) [...] discharge with black tomorrow at 1759 RPT #:[id number] END OF REPORT [facility] 2023-01-08 02:42:00 [facility] ([facility]) Infectious Dis. Progress Note REPORT#:[id number] REPORT STATUS: Signed REPORT INITIALIZATION DATE:01/08/23 TIME: 241 PATIENT: MATHEW CASTILLO UNIT #: [id number] ROOM/BED: [place] [address] : 59 AGE: 62 SEX: M ATTEND: [...] patient on IV Zosyn. at 0353 RPT #:[id number] END OF REPORT [facility] 2023-01-07 21:05:00 [facility] ([facility]) Internal Medicine Prog. Note REPORT#:[id number] REPORT STATUS: Signed REPORT INITIALIZATION DATE:01/07/23 TIME: 2104 PATIENT: MATHEW CASTILLO UNIT #: [id number] ROOM/BED: [facility]-1 : 59 AGE: 62 SEX: M ATTEND: Salinas Alba MD ADM AUTHOR: Sofia Cheng NP REPT SERVICE DT/TIME: 01/07/232104 * ALL edits or amendments must be made on the electronic/computer document * Subjective Chief complaint: Hematuria HPI: 62-year-old male with last medical history of, BPH, s/p bladder lift yesterday by Dr. He transferred from [place] for urology evaluation secondary to hematuria after [...] Sodium Chloride (SODIUM CHLORIDE 0.9%) 1,000 ML .[id number] IV Sodium Chloride (SODIUM CHLORIDE 0.9%) 1,000 [...] % (Auto) (14.0 - 32.0 %) 21.2 Craig % (Auto) (4.8 - 9.0 %) 7.2 Eos % (Auto) (0.3 - 3.7 %) 10.4 H Baso % (Auto) (0.0 - 2.0 %) 0.8 Neut # (Auto) (2.0 - 7.6 x10 3/uL) 3.56 Lymph # (Auto) (1.0 - 3.8 x10 3/uL) 1.26 Craig # (Auto) (0.1 - 0.8 x10 3/uL) 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 He transferred from [place] for urology evaluation secondary to hematuria after [...] present care at 2222 at 0742 RPT #:[id number] END OF REPORT [facility] 2023-01-07 16:17:00 [facility] ([facility]) Urology Progress Note REPORT#:[id number] REPORT STATUS: Signed REPORT INITIALIZATION DATE:01/07/23 TIME: 1616 PATIENT: MATHEW CASTILLO UNIT #: [id number] ROOM/BED: [place] [address] : 59 AGE: 62 SEX: M ATTEND: [...] discharge with black tomorrow at 1617 RPT #:[id number] END OF REPORT [facility] 2023-01-07 05:20:00 [id number] [place] [address] PATIENT NAME: MATHEW CASTILLO ADMIT DATE: 01/06/23 ACCOUNT NO: [id number] ROOM NO: [facility] AGE: 62 REPORT TYPE: PROGRESS [...] Date Transcribed: 01/07/2023 05:56:47 DORADO/PAP Receipt ID: [id number] Authenticated and Edited by Skip Jaffe MD On 01/22/23 5:18:20 AM at 0520 PATIENT NAME: MATHEW CASTILLO [facility] 2023-01-06 21:39:00 [facility] ([facility]) Internal Medicine Prog. Note REPORT#:[id number] REPORT STATUS: Signed REPORT INITIALIZATION DATE:01/06/23 TIME: 2138 PATIENT: MATHEW CASTILLO UNIT #: [id number] ROOM/BED: [place] [address] : 59 AGE: 62 SEX: M ATTEND: Salinas Alba MD ADM AUTHOR: Sofia Cheng ACID PURIFIER REPT SERVICE DT/TIME: 01/06/232138 * ALL edits or amendments must be made on the electronic/computer document * Subjective Chief complaint: Hematuria HPI: 62-year-old male with last medical history of, BPH, s/p bladder lift yesterday by Dr. He transferred from [place] for urology evaluation secondary to hematuria after [...] Sodium Chloride (SODIUM CHLORIDE 0.9%) 1,000 ML .[id number] IV Sodium Chloride (SODIUM CHLORIDE 0.9%) 1,000 [...] (Auto) (14.0 - 32.0 %) 11.8 L Craig % (Auto) (4.8 - 9.0 %) 7.5 Eos % (Auto) (0.3 - 3.7 %) 3.2 Baso % (Auto) (0.0 - 2.0 %) 0.4 Neut # (Auto) (2.0 - 7.6 x10 3/uL) 7.43 Lymph # (Auto) (1.0 - 3.8 x10 3/uL) 1.14 Craig # (Auto) (0.1 - 0.8 x10 3/uL) 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 He transferred from [place] for urology evaluation secondary to hematuria after [...] supportive care at 0015 at 0740 RPT #:[id number] END OF REPORT [facility] 2023-01-06 19:39:00 [facility] ([facility]) Urology Progress Note REPORT#:[id number] REPORT STATUS: Signed REPORT INITIALIZATION DATE:01/06/23 TIME: 1938 PATIENT: MATHEW CASTILLO UNIT #: [id number] ROOM/BED: [facility]-1 : 59 AGE: 62 SEX: M ATTEND: [...] (Auto) (14.0 - 32.0 %) 11.8 L Craig % (Auto) (4.8 - 9.0 %) 7.5 Eos % (Auto) (0.3 - 3.7 %) 3.2 Baso % (Auto) (0.0 - 2.0 %) 0.4 Neut # (Auto) (2.0 - 7.6 x10 3/uL) 7.43 Lymph # (Auto) (1.0 - 3.8 x10 3/uL) 1.14 Craig # (Auto) (0.1 - 0.8 x10 3/uL) [...] wean cbi as tolerated at 1941 RPT #:[id number] END OF REPORT [facility] 2023-01-06 19:19:00 [facility] ([facility]) Infectious Dis. Progress Note REPORT#:[id number] REPORT STATUS: Signed REPORT INITIALIZATION DATE:01/06/23 TIME: 1918 PATIENT: MATHEW CASTILLO UNIT #: [id number] ROOM/BED: [facility]-1 : 59 AGE: 62 SEX: M ATTEND: [...] possibility. [place] [id number] colony-forming units of the Gram- negative rods. Identification and susceptibility is pending. Keep the patient on IV Zosyn. at 0411 RPT #:[id number] END OF REPORT [facility] 2023-01-06 17:40:00 [id number] [place] [address] PATIENT NAME: MATHEW CASTILLO ADMIT DATE: 01/06/23 ACCOUNT NO: [id number] ROOM NO: [facility] AGE: 62 REPORT TYPE: CONSULTATION REPORT SEX: M ADMITTING PHYSICIAN:Salinas Alba MD ATTENDING PHYSICIAN:Salinas Alba MD CONSULTATION DATE: 01/05/2023 INFECTIOUS DISEASE CONSULTATION The patient examined, chart reviewed, old records reviewed. Thank you, Dr. Michael, for asking me to evaluate Mr. Mathew Castillo. HISTORY OF PRESENT ILLNESS: Mr. Castillo is known to me from his recent hospitalization at [facility] in 10/2022. He is a 62-year-old male with a past medical history of schizophrenia, benign prostatic hypertrophy with recurrent urinary symptomatology, history of previous episode of urinary retention due to bladder neck obstruction requiring indwelling Black catheter placement and hospitalization in October of 2022. The patient lives in [place] and he had an outpatient prostate procedure done by Dr. Dave He with UroLift on Friday01/03/2023 and was discharged home on the same day. The patient went back to [place]. However, subsequently, he started to notice ladan hematuria on Friday and had no other constitutional symptoms including fever or chills. The patient because of worsening hematuria decided to go to the hospital. He went to hospital in [place] and he was told to follow up with the urologist and he was transferred to the [facility]. The patient at present is hemodynamically [...] single. He lives with his daughter in [place]. The patient has been a longtime smoker and continues to smoke. No history of IV drug use, alcohol use, or substance abuse. 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 [place] admission, [place] [address]. The patient had 2 blood cultures done. Urine culture is incubating. ASSESSMENT: The patient with multiple comorbidities including history of benign prostatic hypertrophy with previous episode of urinary retention requiring indwelling Black catheter placement has undergone an UroLift procedure on 01/03/2023, and subsequently was discharged on the same day; however, yesterday he started to have hematuria and was seen at a hospital in [facility] and is transferred to [facility] for further Urology evaluation. 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 today, and he is empirically started on [...] Date Transcribed: 01/06/2023 21:28:36 DORADO/GLORIA Receipt ID: [id number] Authenticated by Skip Jaffe MD On 01/22/2023 05:17:37 AM at 0517 PATIENT NAME: MATHEW CASTILLO [facility] 2023-01-05 23:00:00 [facility] ([facility]) Infect Disease Consult Note REPORT#:[id number] REPORT STATUS: Signed REPORT INITIALIZATION DATE:01/05/23 TIME: 2299 PATIENT: MATHEW CASTILLO UNIT #: [id number] ROOM/BED: [place] [address] : 59 AGE: 62 SEX: M ATTEND: [...] our service from his recent hospitalization at [facility] in October of 2022. ASSESSMENT AND [...] No Known Allergies (10/16/22) at 0526 RPT #:[id number] END OF REPORT [facility] 2023-01-05 13:05:00 [facility] ([facility]) Urology Consult Note REPORT#:[id number] REPORT STATUS: Signed REPORT INITIALIZATION DATE:01/05/23 TIME: 1305 PATIENT: MATHEW CASTILLO UNIT #: [id number] ROOM/BED: [place] [address] : 59 AGE: 62 SEX: M ATTEND: [...] 01/06 1112 O2 Delivery Room air 01/05 040 24 hour I O ending at 0700: 01/05 0701/04 1900 Intake Total Output Total Balance Patient [...] (Auto) (14.0 - 32.0 %) 4.5 L Craig % (Auto) (4.8 - 9.0 %) 6.1 Eos % (Auto) (0.3 - 3.7 %) 0.3 Baso % (Auto) (0.0 - 2.0 %) 0.2 Neut # (Auto) (2.0 - 7.6 x10 3/uL) 15.99 H Lymph # (Auto) (1.0 - 3.8 x10 3/uL) 0.82 L Craig # (Auto) (0.1 - 0.8 x10 3/uL) [...] (Man) (0.0 - 0.1 x10 3/uL) 0.00 01/040 2000 Chemistry Sodium (134 - 147 mEq/L) [...] (Auto) (14.0 - 32.0 %) 5.4 L Craig % (Auto) (4.8 - 9.0 %) 5.3 Eos % (Auto) (0.3 - 3.7 %) 0.0 L Baso % (Auto) (0.0 - 2.0 %) 0.2 Neut # (Auto) (2.0 - 7.6 x10 3/uL) 14.77 H Lymph # (Auto) (1.0 - 3.8 x10 3/uL) 0.90 L Craig # (Auto) (0.1 - 0.8 x10 3/uL) [...] pH (5.0 - 7.0) 7.0 Ur Specific Chinle (1.005 - 1.030) 1.005 Urine Protein (NEGATIVE) [...] at this time. NPOpMN Crystal Alberts MD [facility] at 1312 RPT #:[id number] END OF REPORT [facility] 2023-01-05 11:34:00 [facility] ([facility]) History Physical - Adult REPORT#:[id number] REPORT STATUS: Signed REPORT INITIALIZATION DATE:01/05/23 TIME: 1133 PATIENT: MATHEW CASTILLO UNIT #: [id number] ROOM/BED: [place] [address] : 59 AGE: 62 SEX: M ATTEND: Salinas Alba MD ADM AUTHOR: Sofia Cheng ACID PURIFIER REPT SERVICE DT/TIME: 01/05/23 1134 * ALL edits or amendments must be made on the electronic/computer document * History of Present Illness HPI Chief complaint: Hematuria HPI: 62-year-old male with last medical history of, BPH, s/p bladder lift yesterday by Dr. 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, oriented X 3 Skin: dry, intact, [...] (Auto) (14.0 - 32.0 %) 4.5 L Craig % (Auto) (4.8 - 9.0 %) 6.1 Eos % (Auto) (0.3 - 3.7 %) 0.3 Baso % (Auto) (0.0 - 2.0 %) 0.2 Neut # (Auto) (2.0 - 7.6 x10 3/uL) 15.99 H Lymph # (Auto) (1.0 - 3.8 x10 3/uL) 0.82 L Craig # (Auto) (0.1 - 0.8 x10 3/uL) [...] 0.1 x10 3/uL) 0.00 01/04 01/04 01/04 7504 2140 2000 Chemistry Sodium (134 - 147 [...] (Auto) (14.0 - 32.0 %) 5.4 L Craig % (Auto) (4.8 - 9.0 %) 5.3 Eos % (Auto) (0.3 - 3.7 %) 0.0 L Baso % (Auto) (0.0 - 2.0 %) 0.2 Neut # (Auto) (2.0 - 7.6 x10 3/uL) 14.77 H Lymph # (Auto) (1.0 - 3.8 x10 3/uL) 0.90 L Craig # (Auto) (0.1 - 0.8 x10 3/uL) [...] pH (5.0 - 7.0) 7.0 Ur Specific Chinle (1.005 - 1.030) 1.005 Urine Protein (NEGATIVE) [...] Report Impression - Status: SIGNED Entered: 01/04/2023 2988 IMPRESSION: 1. Prostatomegaly. Decompressed bladder with a Black in place. 2. No hydronephrosis. No enhancing renal masses. 3. Cholelithiasis and mildly distended gallbladder. 4. Moderate hiatal hernia. Impression By: [email or web address] Mikaela Magaña M.D. Diagnosis, Assessment Plan Free Text DxA P Notes Free Text DxA P Notes: Assessment: 62-year-old male with last medical history of, BPH, s/p bladder lift yesterday by Dr. eH transferred from [place] for urology evaluation secondary to hematuria after [...] clinical course at 0055 at 0739 RPT #:[id number] END OF REPORT [facility] 2023-01-05 01:59:00 [facility] ([facility]) Clinical Note REPORT#:[id number] REPORT STATUS: Signed REPORT INITIALIZATION DATE:01/05/23 TIME: 158 PATIENT: MATHEW CASTILLO UNIT #: [id number] ROOM/BED: [place] [address] : 59 AGE: 62 SEX: M ATTEND: Salinas Alba MD ADM AUTHOR: Sofia Cheng NP REPT SERVICE DT/TIME: 01/05/23158 * ALL edits or amendments must be made on the electronic/computer document * Clinical Note Note: Clinical data reviewed Orders placed at 0222 RPT #:[id number] END OF REPORT [facility] 2023-01-04 20:02:00 [facility] ([facility]) EMERGENCY PROVIDER REPORT REPORT#:[id number] REPORT STATUS: Signed DATE:01/04/23 TIME: 2001 PATIENT: MATHEW CASTILLO UNIT #: [id number] ROOM/BED: [place] [address] AGE: 62 SEX: M PCP PHYS: Lakhwinder [...] Per daughter at bedside patient evaluated at [place] ED CORE ANALYST, bladder irrigation attempted without resolution of hematuria. [...] imaging, Reviewed prior records Results Laboratory Tests 01/04/23 2001: [Embedded Image Not Available] Laboratory Tests: 01/04 01/04 01/04 7148 9027 2000 Chemistry Sodium (134 - 147 mEq/L) [...] (Auto) (14.0 - 32.0 %) 5.4 L Craig % (Auto) (4.8 - 9.0 %) 5.3 Eos % (Auto) (0.3 - 3.7 %) 0.0 L Baso % (Auto) (0.0 - 2.0 %) 0.2 Neut # (Auto) (2.0 - 7.6 x10 3/uL) 14.77 H Lymph # (Auto) (1.0 - 3.8 x10 3/uL) 0.90 L Craig # (Auto) (0.1 - 0.8 x10 3/uL) [...] pH (5.0 - 7.0) 7.0 Ur Specific Chinle (1.005 - 1.030) 1.005 Urine Protein (NEGATIVE) [...] indwelling black cath s/p urolift 1 day CORE ANALYST presents to ED 2/2 gross hematuria. Tachycardic [...] Saw Pt Alone I have reviewed the PA/ACID PURIFIER's note and plan of care. I was available for consultation as needed at all times during the patient's visit in the emergency department. I agree with the clinical impression, plan and disposition. at 214 at 0552 RPT #:[id number] END OF REPORT [facility] 2022-11-19 18:14:00 [facility] ([facility]) Discharge Summary REPORT#:[id number] REPORT STATUS: Signed DATE:11/19/22 TIME: 1813 PATIENT: MATHEW CASTILLO UNIT #: [id number] ROOM/BED: [place] [address] : 59 AGE: 62 SEX: M ATTEND: [...] last medical history of, BPH, transferred from [place] for urology evaluation and treatment secondary to 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, oriented X 3 Skin: dry, intact, [...] Discharge Instructions Additional Discharge Routines: PCP Follow-Up, 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 Follow-Up )( Diet: Regular Follow-up Appointments PCP [...] FOR REMOVAL OF BLACK at 1132 RPT #:[id number] END OF REPORT [facility] 2022-10-26 20:52:00 [id number] [address] PATIENT NAME: MATHEW CASTILLO ADMIT DATE: 10/16/22 ACCOUNT NO: [id number] ROOM NO: 6630 AGE: 62 REPORT TYPE: [...] Emergency Room where he was transferred from [place] with acute urinary retention. He had 3 [...] Date Transcribed: 10/26/2022 21:14:58 ESTRADA/JORGE/CORETTA Receipt ID: [id number] Authenticated and Edited by Skip Jaffe MD On 11/02/22 2:24:00 AM at 0323 PATIENT NAME: MATHEW CASTILLO [facility] 2022-10-26 19:14:00 [facility]) Internal Medicine Prog. Note REPORT#:[id number] REPORT STATUS: Signed DATE:10/26/22 TIME: 1913 PATIENT: MATHEW CASTILLO UNIT #: [id number] ROOM/BED: [place] [address] : 59 AGE: 62 SEX: M ATTEND: Salinas Alba MD ADM AUTHOR: Sofia Cheng NP * ALL edits or amendments must be made on the electronic/computer document * Subjective Chief complaint: Abdominal distention, hydronephrosis HPI: 62-year-old male with last medical history of, BPH, transferred from [place] for urology evaluation and treatment secondary to [...] Ox 97 10/26 170 B/P 112/69 10/26 1700 B/P Mean 83.3 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 Rupture of ureter Free Text DxA P Notes Free text DxA P notes: Assessment: 62-year-old male with last medical history of, BPH, transferred from [place] for urology evaluation and treatment secondary to [...] supportive care at 2225 at 0830 RPT #:[id number] END OF REPORT [facility] 2022-10-26 13:41:00 [facility] Nephrology Progress Note REPORT#:[id number] REPORT STATUS: Signed DATE:10/26/22 TIME: 1340 PATIENT: MATHEW CASTILLO UNIT #: [id number] ROOM/BED: [place] [address] : 59 AGE: 62 SEX: M ATTEND: [...] urine in his bladder. CT abdomen from [place] showed that the patient has a very [...] urine in his bladder. CT abdomen from [place] showed that the patient has a very [...] above A/P at 1342 at 1813 RPT #:[id number] END OF REPORT [facility] 2022-10-25 21:28:00 [facility] ([facility]) Infectious Dis. Progress Note REPORT#:[id number] REPORT STATUS: Signed DATE:10/25/22 TIME: 2127 PATIENT: MATHEW CASTILLO UNIT #: [id number] ROOM/BED: [place] [address] : 59 AGE: 62 SEX: M ATTEND: [...] new nosocomial acquired infection. at 0256 RPT #:[id number] END OF REPORT [facility] 2022-10-25 19:13:00 [facility] Nephrology Progress Note REPORT#:[id number] REPORT STATUS: Signed DATE:10/25/22 TIME: 1912 PATIENT: MATHEW CASTILLO UNIT #: [id number] ROOM/BED: G6630-1 : 59 AGE: 62 SEX: [...] (Auto) (14.0 - 32.0 %) 10.6 L Craig % (Auto) (4.8 - 9.0 %) 4.4 L Eos % (Auto) (0.3 - 3.7 %) 2.4 Baso % (Auto) (0.0 - 2.0 %) 0.5 Neut # (Auto) (2.0 - 7.6 x10 3/uL) 12.30 H Lymph # (Auto) (1.0 - 3.8 x10 3/uL) 1.60 Craig # (Auto) (0.1 - 0.8 x10 3/uL) [...] urine in his bladder. CT abdomen from [place] showed that the patient has a very [...] post-obstructive diuresis and electrolyte imbalance Urinary Retention/BPH -Blakc to gravity, Urology following, on Tamsulosin -Per Urology note: Reportedly the patient had 3L of urine in his bladder. CT abdomen from [place] showed that the patient has a very [...] abx per primary team. at 1914 RPT #:[id number] END OF REPORT [facility] 2022-10-25 19:12:00 [facility] Internal Medicine Prog. Note REPORT#:[id number] REPORT STATUS: Signed DATE:10/25/22 TIME: 1911 PATIENT: MATHEW CASTILLO UNIT #: [id number] ROOM/BED: [place] [address] : 59 AGE: 62 SEX: M ATTEND: Salinas Alba MD ADM AUTHOR: Sofia Cheng NP * ALL edits or amendments must be made on the electronic/computer document * Subjective Chief complaint: Abdominal distention, hydronephrosis HPI: 62-year-old male with last medical history of, BPH, transferred from [place] for urology evaluation and treatment secondary to [...] (Auto) (14.0 - 32.0 %) 10.6 L Craig % (Auto) (4.8 - 9.0 %) 4.4 L Eos % (Auto) (0.3 - 3.7 %) 2.4 Baso % (Auto) (0.0 - 2.0 %) 0.5 Neut # (Auto) (2.0 - 7.6 x10 3/uL) 12.30 H Lymph # (Auto) (1.0 - 3.8 x10 3/uL) 1.60 Craig # (Auto) (0.1 - 0.8 x10 3/uL) 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 Rupture of ureter Free Text DxA P Notes Free text DxA P notes: Assessment: 62-year-old male with last medical history of, BPH, transferred from [place] for urology evaluation and treatment secondary to [...] medications and supportive care at 2224 at 2533 [facility] #:[id number] END OF REPORT [facility] 2022-10-25 10:44:00 [phone] [place] [address] PATIENT NAME: MATHEW CASTILLO ADMIT DATE: 10/16/22 ACCOUNT NO: [id number] ROOM NO: [facility] AGE: 62 REPORT [...] through Emergency Room initially to hospital in [place] with urinary retention of 2 days' duration and was found to have some extravasation of urine in the peritoneal cavity. The patient was treated with IV antibiotics and had a Black catheter inserted and about 3 liters of urine was drained and the Black was left in place and he was transferred to [facility] for urology evaluation. The patient was [...] Dictated: 10/25/2022 10:44:58 Date Transcribed: 10/25/2022 11:24:45 ESTRADA/JENNI Receipt ID: [id number] Authenticated and Edited by Skip Jaffe MD On 11/02/22 2:23:50 AM at 0323 PATIENT NAME: MATHEW CASTILLO [facility] 2022-10-24 22:59:00 [facility] Internal Medicine Prog. Note REPORT#:[id number] REPORT STATUS: Signed DATE:10/24/22 TIME: 2258 PATIENT: MATHEW CASTILLO UNIT #: [id number] ROOM/BED: [place] [address] : 59 AGE: 62 SEX: M ATTEND: Salinas Alba MD ADM AUTHOR: Sofia Cheng NP * ALL edits or amendments must be made on the electronic/computer document * Subjective Chief complaint: Abdominal distention, hydronephrosis HPI: 62-year-old male with last medical history of, BPH, transferred from [place] for urology evaluation and treatment secondary to [...] CAT SCAN - CTA CHEST FOR PE 10/234 Report Impression - Status: SIGNED Entered: 10/23/20222012 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 Rupture of ureter Free Text DxA P Notes Free text DxA P notes: Assessment: 62-year-old male with last medical history of, BPH, transferred from [place] for urology evaluation and treatment secondary to [...] and treatment Urology consultation in place Keep Lback to bedside drainage I's and O's Monitor [...] present care at 2223 at 0830 RPT #:[id number] END OF REPORT [facility] 2022-10-24 19:41:00 [facility] ([facility]) Infectious Dis. Progress Note REPORT#:[id number] REPORT STATUS: Signed DATE:10/24/22 TIME: 1940 PATIENT: MATHEW CASTILLO UNIT #: [id number] ROOM/BED: [facility]30-1 : 59 AGE: 62 SEX: M ATTEND: [...] closely for any diarrhea. at 0316 RPT #:[id number] END OF REPORT [facility] 2022-10-24 19:12:00 [id number] [address] PATIENT NAME: MATHEW CASTILLO ADMIT DATE: 10/16/22 ACCOUNT NO: [id number] ROOM NO: [facility] AGE: 62 REPORT [...] problems was initially admitted to hospital in [place] where he had presented with urinary retention. [...] Date Transcribed: 10/24/2022 19:51:44 /GLORIA Receipt ID: [id number] Authenticated and Edited by Skip Jaffe MD On 11/02/22 2:23:34 AM at 0323 PATIENT NAME: MATHEW CASTILLO [facility] 2022-10-24 16:08:00 [facility] ([facility]) Nephrology Progress Note REPORT#:[id number] REPORT STATUS: Signed DATE:10/24/22 TIME: 1608 PATIENT: MATHEW CASTILLO UNIT #: [id number] ROOM/BED: G.6630-1 : 59 AGE: 62 SEX: [...] urine in his bladder. CT abdomen from [place] showed that the patient has a very [...] urine in his bladder. CT abdomen from [place] showed that the patient has a very [...] agree with above A/P at 1740 at 2127 RPT #:[id number] END OF REPORT [facility] 2022-10-23 21:33:00 [facility]) Internal Medicine Prog. Note REPORT#:[id number] REPORT STATUS: Signed DATE:10/23/22 TIME: 2132 PATIENT: MATHEW CASTILLO UNIT #: [id number] ROOM/BED: [address] : 59 AGE: 62 SEX: M ATTEND: Salinas Alba MD ADM AUTHOR: Sofia Cheng NP * ALL edits or amendments must be made on the electronic/computer document * Subjective Chief complaint: Abdominal distention, hydronephrosis HPI: 62-year-old male with last medical history of, BPH, transferred from [place] for urology evaluation and treatment secondary to [...] - 2.40 mg/dL) 1.53 L 10/22 1700 1113 0729 0637 Chemistry Sodium (134 - 147 mEq/L) [...] Docusate Sodium 100 MG BID PRN PRN 07/12 1345 AC PO 11/15 1344 Haloperidol 10 [...] hour I O ending at 0700: 10/23 Intake Total 870 Output Total 1100 Balance 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 Rupture of ureter Free Text DxA P Notes Free text DxA P notes: Assessment: 62-year-old male with last medical history of, BPH, transferred from [place] for urology evaluation and treatment secondary to [...] Fall precaution at 0250 at 0842 RPT #:[id number] END OF REPORT [facility] 2022-10-23 18:51:00 [facility] ([facility]) Infectious Dis. Progress Note REPORT#:[id number] REPORT STATUS: Signed DATE:10/23/22 TIME: 1850 PATIENT: MATHEW CASTILLO UNIT #: [id number] ROOM/BED: [place] [address] : 59 AGE: 62 SEX: M ATTEND: [...] closely for any diarrhea. at 0256 RPT #:[id number] END OF REPORT [facility] 2022-10-23 18:27:00 [phone] [place] [address] PATIENT NAME: MATHEW CASTILLO ADMIT DATE: 10/16/22 ACCOUNT NO: [id number] ROOM NO: G.6630 AGE: 62 REPORT TYPE: [...] Emergency Room where he was transferred from [facility] because of urinary retention. The patient presented to [facility] with 2 days' history of not able to pass any urine and he was found to have 3 liters urine in his bladder with some extravasation of urine into the peritoneal cavity. The patient had a Black catheter placed and bladder was relieved. He was transferred to [facility] for evaluation by Urology Service. The patient was kept on IV ceftriaxone. 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 Dictated By: Skip Jfafe MD Date Dictated: 10/23/2022 18:27:31 Date Transcribed: 10/23/2022 18:54:06 DORADO/GLORIA Receipt ID: [id number] Authenticated and Edited by Skip Jaffe MD On 11/02/22 2:23:13 AM at 0225 PATIENT NAME: MATHEW CASTILLO [facility] 2022-10-23 13:24:00 [facility] ([facility]) Nephrology Progress Note REPORT#:[id number] REPORT STATUS: Signed DATE:10/23/22 TIME: 1323 PATIENT: MATHEW CASTILLO UNIT #: [id number] ROOM/BED: 6630-1 : 59 AGE: 62 SEX: [...] urine in his bladder. CT abdomen from [place] showed that the patient has a very [...] urine in his bladder. CT abdomen from [place] showed that the patient has a very [...] above A/P at 1741 at 2253 RPT #:[id number] END OF REPORT [facility] 2022-10-22 18:32:00 [facility] ([facility]) Infectious Dis. Progress Note REPORT#:[id number] REPORT STATUS: Signed DATE:10/22/22 TIME: 1831 PATIENT: MATHEW CASTILLO UNIT #: [id number] ROOM/BED: [place] [address] : 59 AGE: 62 SEX: M ATTEND: [...] low-grade temperature of the 37.6 degree C mule operator today. Remains afebrile at the present time. [...] empiric IV antibiotics for now. at 0219 [facility] #:[id number] END OF REPORT [facility] 2022-10-22 18:20:00 [phone] [place], [place] [address] PATIENT NAME: MATHEW CASTILLO ADMIT DATE: 10/16/22 ACCOUNT NO: [id number] ROOM NO: [facility] AGE: 62 REPORT [...] was initially admitted through emergency room at [facility] with acute urinary retention. The patient [...] for urology evaluation, he was transferred to [facility]. 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 Rupture of ureter Free Text DxA P Notes Free text DxA P notes: Assessment: 62-year-old male with last medical history of, BPH, transferred from [place] for urology evaluation and treatment secondary to [...] and supportive care at 0314 at 0842 [facility] #:[id number] END OF REPORT [facility] 2022-10-22 09:31:00 [facility] ([facility] Nephrology Progress Note REPORT#:[id number] REPORT STATUS: Signed DATE:10/22/22 TIME: 930 PATIENT: MATHEW CASTILLO UNIT #: [id number] ROOM/BED: [place] [address] : 59 AGE: 62 SEX: M ATTEND: [...] urine in his bladder. CT abdomen from [place] showed that the patient has a very [...] urine in his bladder. CT abdomen from [place] showed that the patient has a very [...] patient's nurse, and . Toby Koehler 10/22/22 0628: Attestations Physician Attestation Reviewed findings plan: Patient examined Renal function improved and wnl, black to gravity, -2/2 post-obstrucitve uropathy, replace electrolytes as needed, agree with above A/P at 1842 at 0507 RPT #:[id number] END OF REPORT [facility] 2022-10-21 20:48:00 [facility] Internal Medicine Prog. Note REPORT#:[id number] REPORT STATUS: Signed DATE:10/21/22 TIME: 2047 PATIENT: MATHEW CASTILLO UNIT #: [id number] ROOM/BED: 6630-1 : 59 AGE: 62 SEX: M ATTEND: Salinas Alba MD ADM AUTHOR: Sofia Cheng NP * ALL edits or amendments must be made on the electronic/computer document * Subjective Chief complaint: Abdominal distention, hydronephrosis HPI: 62-year-old male with last medical history of, BPH, transferred from [place] for urology evaluation and treatment secondary to [...] 0426: [Embedded Image Not Available] Laboratory Tests 10/2117 1707 1126 0723 0426 0426 Chemistry Sodium 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 Rupture of ureter Free Text DxA P Notes Free text DxA P notes: Assessment: 62-year-old male with last medical history of, BPH, transferred from [place] for urology evaluation and treatment secondary to [...] and present at 0104 at 1009 RPT #:[id number] END OF REPORT [facility] 2022-10-21 19:01:00 [facility] ([facility]) Infectious Dis. Progress Note REPORT#:[id number] REPORT STATUS: Signed DATE:10/21/22 TIME: 190 PATIENT: MATHEW CASTILLO UNIT #: [id number] ROOM/BED: [place] [address] : 59 AGE: 62 SEX: M ATTEND: [...] Discussed with Skylar MENDIOLA. at 0242 RPT #:[id number] END OF REPORT [facility] 2022-10-21 11:23:00 [facility] ([facility]) Nephrology Progress Note REPORT#:[id number] REPORT STATUS: Signed DATE:10/21/22 TIME: 112 PATIENT: MATHEW CASTILLO UNIT #: [id number] ROOM/BED: [place] [address] : 59 AGE: 62 SEX: M ATTEND: [...] No sonographic evidence for DVT Impression By: KemABEric - Ld Ac M.D. Diagnosis, Assessment Plan Free Text A P: Assessment and Plan: CHANDRA (Resolved) -Renal function improved and wnl, black to gravity, s/p bicarb gtt. -2/2 post-obstrucitve uropathy, monitor for post-obstructive diuresis. -UA, urine lytes requested -Per Urology note: Reportedly the patient had 3L of urine in his bladder. CT abdomen from [place] showed that the patient has a very [...] urine in his bladder. CT abdomen from [place] showed that the patient has a very [...] agree with above A/P at 1640 at 3293 [facility] #:[id number] END OF REPORT [facility] 2022-10-21 03:59:00 [id number] [address] PATIENT NAME: MATHEW CASTILLO ADMIT DATE: 10/16/22 ACCOUNT NO: [id number] ROOM NO: G6630 AGE: 62 REPORT TYPE: CONSULTATION REPORT SEX: [...] who was initially admitted to hospital in [place] where he presented with acute urinary retention. [...] for urology evaluation, he was transferred to [facility] on 10/16/2022 for admission. On [...] temperature of up to 37.8 degrees Celsius mule operator today and after that he had been only having low-grade fever. Denies any nausea, vomiting or diarrhea. Denies any chest pain, cough, expectoration, or shortness of breath. He continues to have a Black catheter in place and admits to having suprapubic area soreness and pain, however, states that the pain and soreness he had at the time of presentation to the [facility] has resolved. Denies any joint pains. 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 IMPRESSION: The patient with multiple comorbidities including history of schizophrenia and benign prostatic hypertrophy with worsening urinary difficulties for last over 2 years, was admitted through emergency room where he was transferred from [facility] because of need for urology evaluation. [...] to 37.8 degrees Celsius last night and mule operator and had developed marked leukocytosis. Clinically, he [...] Date Transcribed: 10/21/2022 04:40:04 DORADO/MAN Receipt ID: [id number] Authenticated by Skip Jaffe MD On 11/02/2022 02:22:37 AM at 0222 PATIENT NAME: MATHEW CASTILLO [facility] 2022-10-20 20:34:00 [facility] ([facility]) Nephrology Progress Note REPORT#:[id number] REPORT STATUS: Signed DATE:10/20/22 TIME: 2033 PATIENT: MATHEW CASTILLO UNIT #: [id number] ROOM/BED: 6630-1 : 59 AGE: 62 SEX: [...] - 32.0 %) 9.5 L 7.3 L Craig % (Auto) (4.8 - 9.0 %) 7.2 7.5 Eos % (Auto) (0.3 - 3.7 %) 2.6 2.2 Baso % (Auto) (0.0 - 2.0 %) 0.4 0.3 Neut # (Auto) (2.0 - 7.6 x10 3/uL) 13.75 H 15.38 H Lymph # (Auto) (1.0 - 3.8 x10 3/uL) 1.67 1.40 Craig # (Auto) (0.1 - 0.8 x10 3/uL) [...] urine in his bladder. CT abdomen from [place] showed that the patient has a very [...] urine in his bladder. CT abdomen from [place] showed that the patient has a very [...] Schizophrenia -Home medications resumed at 2150 RPT #:[id number] END OF REPORT [facility] 2022-10-20 18:11:00 [facility] Internal Medicine Prog. Note REPORT#:[id number] REPORT STATUS: Signed DATE:10/20/22 TIME: 1810 PATIENT: MATHEW CASTILLO UNIT #: [id number] ROOM/BED: [place] [address] : 59 AGE: 62 SEX: M ATTEND: Salinas Alba MD ADM AUTHOR: Sofia Cheng NP * ALL edits or amendments must be made on the electronic/computer document * Subjective Chief complaint: Abdominal distention, hydronephrosis HPI: 62-year-old male with last medical history of, BPH, transferred from [place] for urology evaluation and treatment secondary to [...] - 32.0 %) 9.5 L 7.3 L Craig % (Auto) (4.8 - 9.0 %) 7.2 7.5 Eos % (Auto) (0.3 - 3.7 %) 2.6 2.2 Baso % (Auto) (0.0 - 2.0 %) 0.4 0.3 Neut # (Auto) (2.0 - 7.6 x10 3/uL) 13.75 H 15.38 H Lymph # (Auto) (1.0 - 3.8 x10 3/uL) 1.67 1.40 Craig # (Auto) (0.1 - 0.8 x10 3/uL) [...] - Reinaldo Jacobs M.D. 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 Rupture of ureter Free Text DxA P Notes Free text DxA P notes: Assessment: 62-year-old male with last medical history of, BPH, transferred from [place] for urology evaluation and treatment secondary to [...] supportive care at 0141 at 1009 RPT #:[id number] END OF REPORT [facility] 2022-10-20 17:06:00 [facility] ([facility]) Infect Disease Consult Note REPORT#:[id number] REPORT STATUS: Signed DATE:10/20/22 TIME: 1705 PATIENT: MATHEW CASTILLO UNIT #: [id number] ROOM/BED: [facility]30-1 : 59 AGE: 62 SEX: M ATTEND: [...] No Known Allergies (10/16/22) at 0239 RPT #:[id number] END OF REPORT [facility] 2022-10-20 01:07:00 [phone] [place] [address] PATIENT NAME: MATHEW CASTILLO ADMIT DATE: 10/16/22 ACCOUNT NO: [id number] ROOM NO: [facility] AGE: 62 REPORT TYPE: eELECTROCARDIOGRAM REPORT SEX: M ADMITTING PHYSICIAN:Salinas Alba MD ATTENDING PHYSICIAN:Salinas Alba MD Order: [id number] Test Reason : Sepsis Test Date/Time Stamp: [...] MD at 1247 PATIENT NAME: MATHEW CASTILLO [facility] 2022-10-19 22:43:00 [facility] Internal Medicine Prog. Note REPORT#:[id number] REPORT STATUS: Signed DATE:10/19/22 TIME: 2242 PATIENT: MATHEW CASTILLO UNIT #: [id number] ROOM/BED: [place] [address] : 59 AGE: 62 SEX: M ATTEND: Salinas Alba MD ADM AUTHOR: Sofia Cheng ACID PURIFIER * ALL edits or amendments must be made on the electronic/computer document * Subjective Chief complaint: Abdominal distention, hydronephrosis HPI: 62-year-old male with last medical history of, BPH, transferred from [place] for urology evaluation and treatment secondary to [...] (1.80 - 2.40 mg/dL) 1.48 L 10/1840 20127 7060 0753 Chemistry POC Glucose (70 - 110 MG/DL) [...] L Laboratory Tests 10/19 10/18 10/17 0347 1815 0730 Hematology WBC (4.5 - 11.0 x10 3/uL) [...] - 32.0 %) 15.7 15.6 10.6 L Craig % (Auto) (4.8 - 9.0 %) 8.5 10.1 H 12.8 H Eos % (Auto) (0.3 - 3.7 %) 6.0 H 7.5 H 2.7 Baso % (Auto) (0.0 - 2.0 %) 0.7 0.7 0.4 Neut # (Auto) (2.0 - 7.6 x10 3/uL) 6.09 5.53 8.23 H Lymph # (Auto) (1.0 - 3.8 x10 3/uL) 1.48 1.39 1.22 Craig # (Auto) (0.1 - 0.8 x10 3/uL) [...] pH (5.0 - 7.0) 5.0 Ur Specific Chinle (1.005 - 1.030) 1.015 Urine Protein (NEGATIVE) [...] - COMP NASAL Chemistry: 10/19 1615 1135 0725 0347 Chemistry Sodium 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 Rupture of ureter Free Text DxA P Notes Free text DxA P notes: Assessment: 62-year-old male with last medical history of, BPH, transferred from [place] for urology evaluation and treatment secondary to [...] medications and present care at 0229 at 2260 [facility] #:[id number] END OF REPORT [facility] 2022-10-19 20:14:00 [facility] ([facility]) Nephrology Progress Note REPORT#:[id number] REPORT STATUS: Signed DATE:10/19/22 TIME: 2013 PATIENT: MATHEW CASTILLO UNIT #: [id number] ROOM/BED: 6630-1 : 59 AGE: 62 SEX: [...] % (Auto) (14.0 - 32.0 %) 15.7 Craig % (Auto) (4.8 - 9.0 %) 8.5 Eos % (Auto) (0.3 - 3.7 %) 6.0 H Baso % (Auto) (0.0 - 2.0 %) 0.7 Neut # (Auto) (2.0 - 7.6 x10 3/uL) 6.09 Lymph # (Auto) (1.0 - 3.8 x10 3/uL) 1.48 Craig # (Auto) (0.1 - 0.8 x10 3/uL) [...] pH (5.0 - 7.0) 5.0 Ur Specific Chinle (1.005 - 1.030) 1.015 Urine Protein (NEGATIVE) [...] urine in his bladder. CT abdomen from [place] showed that the patient has a very [...] urine in his bladder. CT abdomen from [place] showed that the patient has a very [...] hydralazine Schizophrenia -Home medications resumed at 2148 [facility] #:[id number] END OF REPORT [facility] 2022-10-18 20:26:00 [facility] Internal Medicine Prog. Note REPORT#:[id number] REPORT STATUS: Signed DATE:10/18/22 TIME: 2025 PATIENT: MATHEW CASTILLO UNIT #: [id number] ROOM/BED: [address] : 59 AGE: 62 SEX: M ATTEND: Salinas Alba MD ADM AUTHOR: Sofia Cheng NP * ALL edits or amendments must be made on the electronic/computer document * Subjective Chief complaint: Abdominal distention, hydronephrosis HPI: 62-year-old male with last medical history of, BPH, transferred from [place] for urology evaluation and treatment secondary to [...] % (Auto) (14.0 - 32.0 %) 15.6 Craig % (Auto) (4.8 - 9.0 %) 10.1 H Eos % (Auto) (0.3 - 3.7 %) 7.5 H Baso % (Auto) (0.0 - 2.0 %) 0.7 Neut # (Auto) (2.0 - 7.6 x10 3/uL) 5.53 Lymph # (Auto) (1.0 - 3.8 x10 3/uL) 1.39 Craig # (Auto) (0.1 - 0.8 x10 3/uL) 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 Rupture of ureter Free Text DxA P Notes Free text DxA P notes: Assessment: 62-year-old male with last medical history of, BPH, transferred from [place] for urology evaluation and treatment secondary to [...] and supportive care at 2012 at 1301 [facility] #:[id number] END OF REPORT [facility] 2022-10-18 17:48:00 [facility] ([facility]) Nephrology Progress Note REPORT#:[id number] REPORT STATUS: Signed DATE:10/18/22 TIME: 1747 PATIENT: MATHEW CASTILLO UNIT #: [id number] ROOM/BED: 6630-1 : 59 AGE: 62 SEX: [...] % (Auto) (14.0 - 32.0 %) 15.6 Craig % (Auto) (4.8 - 9.0 %) 10.1 H Eos % (Auto) (0.3 - 3.7 %) 7.5 H Baso % (Auto) (0.0 - 2.0 %) 0.7 Neut # (Auto) (2.0 - 7.6 x10 3/uL) 5.53 Lymph # (Auto) (1.0 - 3.8 x10 3/uL) 1.39 Craig # (Auto) (0.1 - 0.8 x10 3/uL) [...] urine in his bladder. CT abdomen from [place] showed that the patient has a very [...] urine in his bladder. CT abdomen from [place] showed that the patient has a very [...] K and magnesium supplementation. at 193 RPT #:[id number] END OF REPORT [facility] 2022-10-17 22:43:00 [facility] Internal Medicine Prog. Note REPORT#:[id number] REPORT STATUS: Signed DATE:10/17/22 TIME: 2242 PATIENT: MATHEW CASTILLO UNIT #: [id number] ROOM/BED: [place] [address] : 59 AGE: 62 SEX: M ATTEND: Salinas Alba MD ADM AUTHOR: Sofia Cheng ACID PURIFIER * ALL edits or amendments must be made on the electronic/computer document * Subjective Chief complaint: Abdominal distention, hydronephrosis HPI: 62-year-old male with last medical history of, BPH, transferred from [place] for urology evaluation and treatment secondary to [...] (Auto) (14.0 - 32.0 %) 10.6 L Craig % (Auto) (4.8 - 9.0 %) 12.8 H Eos % (Auto) (0.3 - 3.7 %) 2.7 Baso % (Auto) (0.0 - 2.0 %) 0.4 Neut # (Auto) (2.0 - 7.6 x10 3/uL) 8.23 H Lymph # (Auto) (1.0 - 3.8 x10 3/uL) 1.22 Craig # (Auto) (0.1 - 0.8 x10 3/uL) 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 Rupture of ureter Free Text DxA P Notes Free text DxA P notes: Assessment: 62-year-old male with last medical history of, BPH, transferred from [place] for urology evaluation and treatment secondary to [...] supportive care at 0210 at 1300 RPT #:[id number] END OF REPORT [facility] 2022-10-17 17:41:00 [facility]) Urology Progress Note REPORT#:[id number] REPORT STATUS: Signed DATE:10/17/22 TIME: 1740 PATIENT: MATHEW CASTILLO UNIT #: [id number] ROOM/BED: [place] [address] : 59 AGE: 62 SEX: M ATTEND: [...] I O ending at 0700: 07/13 0700 10/16 1900 Intake Total 800 Output [...] (Auto) (14.0 - 32.0 %) 10.6 L Craig % (Auto) (4.8 - 9.0 %) 12.8 H Eos % (Auto) (0.3 - 3.7 %) 2.7 Baso % (Auto) (0.0 - 2.0 %) 0.4 Neut # (Auto) (2.0 - 7.6 x10 3/uL) 8.23 H Lymph # (Auto) (1.0 - 3.8 x10 3/uL) 1.22 Craig # (Auto) (0.1 - 0.8 x10 3/uL) [...] cystoscopy. Home with black at 1742 RPT #:[id number] END OF REPORT [facility] 2022-10-17 13:46:00 [facility] ([facility]) Nephrology Progress Note REPORT#:[id number] REPORT STATUS: Signed DATE:10/17/22 TIME: 1345 PATIENT: MATHEW CASTILLO UNIT #: [id number] ROOM/BED: [place] [address] : 59 AGE: 62 SEX: M ATTEND: [...] (Auto) (14.0 - 32.0 %) 10.6 L Craig % (Auto) (4.8 - 9.0 %) 12.8 H Eos % (Auto) (0.3 - 3.7 %) 2.7 Baso % (Auto) (0.0 - 2.0 %) 0.4 Neut # (Auto) (2.0 - 7.6 x10 3/uL) 8.23 H Lymph # (Auto) (1.0 - 3.8 x10 3/uL) 1.22 Craig # (Auto) (0.1 - 0.8 x10 3/uL) [...] urine in his bladder. CT abdomen from [place] showed that the patient has a very [...] urine in his bladder. CT abdomen from [place] showed that the patient has a very [...] with above A/P at 1759 at 2234 [facility] #:[id number] END OF REPORT [facility] 2022-10-16 15:13:00 [place] [address] PATIENT NAME: MATHEW CASTILLO ADMIT DATE: 10/16/22 ACCOUNT NO: [id number] ROOM NO: [facility] AGE: 62 REPORT TYPE: CONSULTATION REPORT SEX: M ADMITTING PHYSICIAN:Salinas Alba MD ATTENDING PHYSICIAN:Salinas Alba MD CONSULTATION DATE:10/16/2022 REASON FOR CONSULTATION: Hydronephrosis, urinary retention. HISTORY OF PRESENT ILLNESS: This is a 62-year-old male with a history of schizophrenia who was sent in from [place]. He had reportedly almost 3 liters of [...] scan of the abdomen and pelvis from [place]. The patient has a very large distended [...] Dictated: 10/16/2022 15:13:22 Date Transcribed: 10/16/2022 16:06:29 /[facility] [place] Receipt ID: [id number] Authenticated and Edited by Dave He MD On 11/12/22 1:37:06 PM at 0138 PATIENT NAME: MATHEW CASTILLO [facility] 2022-10-16 12:39:00 [facility]) Nephrology Consultation Note REPORT#:[id number] REPORT STATUS: Signed DATE:10/16/22 TIME: 1239 PATIENT: MATHEW CASTILLO UNIT #: [id number] ROOM/BED: 6630-1 : 59 AGE: 62 SEX: [...] Friday who took him to ER in [place]. He had CT abdomen which revealed b/l hydronephrosis and concern for possible ureteral rupture. [facility] Initial VS at the [...] (Auto) (14.0 - 32.0 %) 3.8 L Craig % (Auto) (4.8 - 9.0 %) 13.6 H Eos % (Auto) (0.3 - 3.7 %) 0.4 Baso % (Auto) (0.0 - 2.0 %) 0.2 Neut # (Auto) (2.0 - 7.6 x10 3/uL) 8.96 H Lymph # (Auto) (1.0 - 3.8 x10 3/uL) 0.42 L Craig # (Auto) (0.1 - 0.8 x10 3/uL) [...] urine in his bladder. CT abdomen from [place] showed that the patient has a very [...] urine in his bladder. CT abdomen from [place] showed that the patient has a very [...] patient's nurse, and . Toby Koehler 10/16/22 1082: Attestations Physician Attestation Reviewed findings plan: Patient examined 62 years old male with PMH significant for schizophrenia, HTN, BPH, current everyday smoker. The patient states that on Friday last week, he noted abdominal distention, associated w/ pain and was unable to urinate. He was seen by his daughter Friday who took him to ER in [place]. He had CT abdomen which revealed b/l hydronephrosis and concern for possible ureteral rupture. He was transferred to [facility] [place] for Urology evaluation. Initial VS at the [...] Agree with above A/P at 1902 at 1460 RPT #:[id number] END OF REPORT [facility] 2022-10-16 11:15:00 [facility] ([facility]) History Physical - Adult REPORT#:[id number] REPORT STATUS: Signed DATE:10/16/22 TIME: 111 PATIENT: MATHEW CASTILLO UNIT #: [id number] ROOM/BED: [place] [address] : 59 AGE: 62 SEX: M ATTEND: Salinas Alba MD ADM AUTHOR: Sofia Cheng NP * ALL edits or amendments must be made on the electronic/computer document * History of Present Illness HPI Chief complaint: Abdominal distention, hydronephrosis HPI: 62-year-old male with last medical history of, BPH, transferred from [place] for urology evaluation and treatment secondary to 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, oriented X 3 Skin: dry, intact, [...] (Auto) (14.0 - 32.0 %) 3.8 L Craig % (Auto) (4.8 - 9.0 %) 13.6 H Eos % (Auto) (0.3 - 3.7 %) 0.4 Baso % (Auto) (0.0 - 2.0 %) 0.2 Neut # (Auto) (2.0 - 7.6 x10 3/uL) 8.96 H Lymph # (Auto) (1.0 - 3.8 x10 3/uL) 0.42 L Craig # (Auto) (0.1 - 0.8 x10 3/uL) [...] last medical history of, BPH, transferred from [place] for urology evaluation and treatment secondary to [...] on patient's clinical course at 0232 at 1201 RPT #:[id number] END OF REPORT [facility] 2022-10-16 03:54:00 [facility] ([facility]) EMERGENCY PROVIDER REPORT REPORT#:[id number] REPORT STATUS: Signed DATE:10/16/22 TIME: 0354 PATIENT: MATHEW CASTILLO UNIT #: [id number] ROOM/BED: [place] [address] AGE: 62 SEX: M PCP PHYS: No [...] 0308 Pulse 92 07/ 0308 Resp 18 / 0308 Last Documented: Result Date Time Pulse Ox 96 10/16 0330 B/P 146/80 / 0330 B/P Mean 107 / 0330 Pulse 90 07/ 0330 O2 Delivery Room air 10/16 0308 Temp 37.1 07/ 0308 Resp 18 / 0308 Review of [...] (Auto) (14.0 - 32.0 %) 3.8 L Craig % (Auto) (4.8 - 9.0 %) 13.6 H Eos % (Auto) (0.3 - 3.7 %) 0.4 Baso % (Auto) (0.0 - 2.0 %) 0.2 Neut # (Auto) (2.0 - 7.6 x10 3/uL) 8.96 H Lymph # (Auto) (1.0 - 3.8 x10 3/uL) 0.42 L Craig # (Auto) (0.1 - 0.8 x10 3/uL) [...] Consultation Consultation Referral/Consult Name Dave He MD 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 Called Urology 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 Discussed with merchandising consultant Requested Call Time 034 Requested Call [...] 90 10/16 0330 O2 Delivery Room air 10/168 Temp 37.1 10/168 Resp 18 10/168 All vital signs available at the time of this entry have been reviewed. Clinical Impression Clinical Impression Primary Impression: Rupture of ureter Disposition Decision Hospitalize Hosp Physician Name Salinas Alba MD [facility] Physician Hospitalist Request Time 0508 Request [...] chart for administrative purposes only. at 1907 [facility] #:[id number] END OF REPORT [facility]
== END 2023-11-21 22:13 | disposition home or self-care (01) ==
LOC: ER 18:29
DX: T83.038A Leakage of other urinary catheter, initial encounter (principal)
CPT/HCPCS: 51702; 99284

== ENCOUNTER 2024-01-31 15:03 | Emergency (ER) | payer OTHER ==
--- OUTSIDE RECORDS SUMMARY | 2024-01-31 15:08 | XMS REPORT | Continuity of Care Document ---
Author Name Unknown Address [address] [facility] [place]. [address] [place] [id number] [facility] thconnect Address [address] [facility] [place]. 1 [address] [place] [address] Care Team Providers Care Resaw Tailer Name Role Phone Salinas Alba I Attending [...] s DA Active U 10-16 00:00: 00 [facility] Encounters Start Date/Time End Date/Time Encounter Type Admission Type Attending Clinicians Care Facility Care Department Encounter ID Source 2023-01-21 06:38:00 2023-01-22 20:00:00 Inpatient EM Salinas Alba [facility]01 [id number] [facility] 2023-01-06 15:12:00 2023-01-11 21:08:00 Inpatient EM Salinas Alba [facility]01 [id number] [facility] 2022-10-16 05:03:00 2022-10-26 19:41:00 Inpatient EM Salinas Alba [facility] MEDI[facility]01 [id number] [facility] Results Test Description Test Time Test Comments Results Resul t Comments Source - CT ABD PELVIS W/CONT 2023-01-05 8 13:[facility]00 [facility] 1960 Sex: M Name: MATHEW CASTILLO [facility] : 1960 Age/S: 62 / M [address] [place] [address] Blvd Unit #: [id number] Loc: [place] [address] Phys: Sofia Cheng SECOND OPERATOR Acct: [id number] Dis Date: Status: ADM IN PHONE #: [phone] Exam Date: 01/22/2023 1231 FAX #: [phone] Reason: ABD PAIN EXAMS: CPT CODE: [id number] CT ABD PELVIS W/CONT 54451 EXAM: CT abdomen and pelvis with contrast [...] Signed Report (CONTINUED) Name: MATHEW CASTILLO [facility] : 1960 Age/S: 62 / M [address] [place] [address] Blvd Unit #: [id number] Loc: [place] [address] Phys: Sofia Cheng SECOND OPERATOR Acct: [id number] Dis Date: Status: ADM IN PHONE #: [phone] Exam Date: 01/22/2023 1231 FAX #: [phone] Reason: ABD PAIN EXAMS: CPT CODE: [id number] CT ABD PELVIS W/CONT 48581 (Continued) abdominal aortic aneurysm. Pelvic organs/bladder: Moderate [...] signed by: John Berumen M.D. CC: Lakhwinder Vasquez MD; Sofia Cheng SECOND OPERATOR; Salinas Dukes MD Technologist:Rick Moran Jr, RT(R)(CT) CTDI: DLP: Trnscb Date/Time: 01/22/2023 (1300) t.SDR.BC0 Orig Print D/T: S: 01/22/2023 (9608) PAGE 2 Signed Report [id number] 07:46:00* Test Item Value Reference Range Interpretation Comme nts PHOSPHOROUS (test code = PHOS) 2.4 MG/DL 2.5-4.9 L [id number] 07:46:00* Test Item Value Reference Range Interpretation Comme nts MAGNESIUM (test code = MAG) 1.69 mg/dL 1.6-2.6 N NOTE: NEW NORMAL RANGE CBC W/AUTO [id number] 07:05:00* Test Item Value Reference Range Interpretation [...] 0.00 x10 3/uL 0.0-0.1 N BASIC METABOLIC [id number] 06:08:00* Test Item Value Reference Range Interpretation [...] CA) 8.2 mg/dL 8.0-10.5 N CBC W/AUTO [id number] 05:57:00* Test Item Value Reference Range Interpretation [...] c ode = MDIFF) NO CBC W/AUTO [id number] 08:15:00* Test Item Value Reference Range Interpretation [...] 0.00 x10 3/uL 0.0-0.1 N BASIC METABOLIC [id number] 07:28:00* Test Item Value Reference Range Interpretation [...] CA) 8.6 mg/dL 8.0-10.5 N BASIC METABOLIC [id number] 07:46:00* Test Item Value Reference Range Interpretation [...] CA) 8.7 mg/dL 8.0-10.5 N CBC W/AUTO [id number] 07:34:00* Test Item Value Reference Range Interpretation [...] 0.00 x10 3/uL 0.0-0.1 N CBC W/AUTO [id number] 08:43:00* Test Item Value Reference Range Interpretation [...] c ode = MDIFF) NO BASIC METABOLIC [id number] 07:14:00* Test Item Value Reference Range Interpretation [...] CA) 7.8 mg/dL 8.0-10.5 L CBC W/AUTO [id number] 08:58:00* Test Item Value Reference Range Interpretation [...] c ode = MDIFF) NO BASIC METABOLIC [id number] 08:27:00* Test Item Value Reference Range Interpretation [...] HGBA1C%) 5.1 %A1C 4.8-6.0 N CBC W/AUTO [id number] 08:05:00* Test Item Value Reference Range Interpretation [...] (test code = MDIFF) NO BASIC METABOLIC [id number] 07:46:00* Test Item Value Reference Range Interpretation [...] = LDL) 104.0 mg/dL 0-100 H <100 [id number] 0-129 NEAR OPTIMAL/ABOVE [id number] [id number] HIGH>VF=272 VERY HIGH*Guidelines provided by the National Cholesterol EducationProgram Adult Treatment Panel III [id number] 07:46:00* Test Item Value Reference Range Interpretation Comme nts PHOSPHOROUS (test code = PHOS) 3.4 MG/DL 2.5-4.9 N [id number] 07:46:00* Test Item Value Reference Range Interpretation Comme nts MAGNESIUM (test code = MAG) 1.69 mg/dL 1.6-2.6 N NOTE: NEW NORMAL RANGE TSH REFLEX TO [id number] 07:46:00* Test Item Value Reference Range Interpretation Comme nts TSH REFLEX TO FT4 (test code = TSHREFLEX) 2.37 IU/mL 0.42-5.47 N LACTIC [id number] 05:48:00* Test Item Value Reference Range Interpretation Comme nts LACTIC ACID (test code = LACT) 1.1 mmol/L 0.4-1.9 N LACTIC ACID [id number] 02:38:00* Test Item Value Reference Range Interpretation Comme nts LACTIC ACID REPEAT (test cod e = LACTR) 0.9 mmol/l 0.4-1.9 N CALLED SEVERINO @01:18 TO REMIND WE NEEDED REPEATLACTIC [id number] 22:36:00* Test Item Value Reference Range Interpretation Comme nts LACTIC ACID (test code = LACT) 2.9 mmol/L 0.4-1.9 H UA RFLX MICR CULT IF [id number] 22:35:00* Test Item Value Reference Range Interpretation [...] Less than 14 days- CT ABD PELVIS [id number] 22:24:00 [facility] HUANGName: MATHEW CASTILLO : 1960 Sex: M Name: MATHEW CASTILLO [facility] [place] [facility] : 1960 Age/S: 62 / M [address] Unit #: [id number] Loc: [place] [address] Phys: Vee Horton Acct: [id number] Dis Date: Status: [facility] ER PHONE #: [phone] Exam Date: 01/04/2023 0940 FAX #: [phone] Reason: GROSS HEMATURIA EXAMS: CPT CODE: [id number] CT ABD PELVIS W/CONT 72465 H 20 TIME OF STUDY: 01/04/2023 7:55 [...] (CONTINUED) Name: MATHEW CASTILLO [facility] : 1960 Age/S: 62 / M [address] [place] [address] Bl Unit #: [id number] Loc: [place] [address] Phys: Vee Horton Acct: [id number] Dis Date: Status: REG ER PHONE #: [phone] Exam Date: 01/04/2023 09 FAX #: [phone] Reason: GROSS HEMATURIA EXAMS: CPT CODE: [id number] CT ABD PELVIS W/CONT 63978 (Continued) at 2224 Reported and signed by: Zia Magaña M.D. CC: Lakhwinder Vasquez MD; Vee Horton; Javier Sullivan MD Technologist:Latoya Moeller, RT(R); Lesvia Humphries CTDI: DLP: Trnscb Date/Time: 01/04/2023 (2223) t.SDR.SI1 Orig Print D/T: S: 01/04/2023 (2226) PAGE 2 Signed ReportCOMPREHENSIVE METABOLIC [id number] 21:07:00* Test Item Value Reference Range Interpretation [...] ALKP) 60 IUnit/L 20-125 N CBC W/AUTO [id number] 20:38:00* Test Item Value Reference Range Interpretation [...] (test code = MDIFF) NO BASIC METABOLIC [id number] 08:30:00* Test Item Value Reference Range Interpretation [...] reported result: 4.9 mg/dLEdited by: KRISTEN on 10/31/22:249624 0829: CA previously reported as: 4.9 *L mg/dL Critical [place] [address]/16/22 Nurse read back result and tech confirmed it's correct? Y GLUCOSE [id number] 17:27:00* Test Item Value Reference Range Interpretation Comme nts GLUCOSE BEDSIDE (test code = GLUBED) 109 MG/DL 70-110 N Performed by teto tse at [facility] GLUCOSE [id number] 12:34:00* Test Item Value Reference Range Interpretation Comme nts GLUCOSE BEDSIDE (test code = GLUBED) 95 MG/DL 70-110 N 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 at [facility] GLUCOSE [id number] 08:49:00* Test Item Value Reference Range Interpretation Comme nts GLUCOSE BEDSIDE (test code = GLUBED) 117 MG/DL 70-110 H 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 at [facility] BASIC METABOLIC [id number] 07:57:00* Test Item Value Reference Range Interpretation [...] = CA) 8.1 mg/dL 8.0-10.5 N GLUCOSE [id number] 17:07:00* Test Item Value Reference Range Interpretation Comme nts GLUCOSE BEDSIDE (test code = GLUBED) 127 MG/DL 70-110 H 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 at [facility] GLUCOSE [id number] 12:26:00* Test Item Value Reference Range Interpretation Comme nts GLUCOSE BEDSIDE (test code = GLUBED) 123 MG/DL 70-110 H 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 at [facility] GLUCOSE [id number] 07:59:00* Test Item Value Reference Range Interpretation Comme nts GLUCOSE BEDSIDE (test code = GLUBED) 92 MG/DL 70-110 N Performed by cer violeta sheet pile driver operator at [facility] BASIC METABOLIC [id number] 07:38:00* Test Item Value Reference Range Interpretation [...] CA) 7.8 mg/dL 8.0-10.5 L CBC W/AUTO [id number] 07:27:00* Test Item Value Reference Range Interpretation [...] REQUIRED (test code = MDIFF) NO GLUCOSE [id number] 21:25:00* Test Item Value Reference Range Interpretation Comme nts GLUCOSE BEDSIDE (test code = GLUBED) 154 MG/DL 70-110 H 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 at [facility] GLUCOSE [id number] 17:43:00* Test Item Value Reference Range Interpretation Comme nts GLUCOSE BEDSIDE (test code = GLUBED) 73 MG/DL 70-110 N 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 at [facility] GLUCOSE [id number] 10:08:00* Test Item Value Reference Range Interpretation Comme nts GLUCOSE BEDSIDE (test code = GLUBED) 87 MG/DL 70-110 N 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 at [facility] GLUCOSE [id number] 20:12:00* Test Item Value Reference Range Interpretation Comme nts GLUCOSE BEDSIDE (test code = GLUBED) 139 MG/DL 70-110 H 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 at [facility] GLUCOSE [id number] 17:32:00* Test Item Value Reference Range Interpretation Comme nts GLUCOSE BEDSIDE (test code = GLUBED) 79 MG/DL 70-110 N 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 at [facility] GLUCOSE [id number] 12:14:00* Test Item Value Reference Range Interpretation Comme nts GLUCOSE BEDSIDE (test code = GLUBED) 98 MG/DL 70-110 N 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 at [facility] GLUCOSE [id number] 08:36:00* Test Item Value Reference Range Interpretation Comme nts GLUCOSE BEDSIDE (test code = GLUBED) 92 MG/DL 70-110 N 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 at [facility] BASIC METABOLIC [id number] 07:50:00* Test Item Value Reference Range Interpretation [...] code = CA) 7.6 mg/dL 8.0-10.5 L [id number] 07:50:00* Test Item Value Reference Range Interpretation Comme nts MAGNESIUM (test code = MAG) 1.53 mg/dL 1.80-2.40 L - CTA CHEST FOR [id number] 00:00:00 [facility] 1960 Sex: M Name: MATHEW CASTILLO [facility] : 1960 Age/S: 62 / M [address] [place] [address] Blvd Unit #: [id number] Loc: [place] [address] Phys: Sofia Cheng SECOND OPERATOR Acct: [id number] Dis Date:Status: ADM IN PHONE #: [phone] Exam Date: 10/23/2022 172 FAX #: [phone] Reason: ELEVATED D DIMER EXAMS: CPT CODE: [id number] [place] [address] PROCEDURE INFORMATION: Exam: CTA ChestWith Contrast Exam [...] Signed Report (CONTINUED) Name: MATHEW CASTILLO [facility] : 1960 Age/S: 62 / M [address] [place] [address] Unit #: [id number] Loc: [id number] Phys: Sofia Cheng SECOND OPERATOR Acct: [id number] Dis Date: Status: ADM IN PHONE #: [phone] Exam Date: 10/23/2022 1723 FAX #: [phone] Reason: ELEVATED D DIMER EXAMS: CPT CODE: [id number] [place] [address] (Continued) flexure compatible with colitis incompletely evaluated. [...] by: Hayden Rg M.D. CC: Sofia Cheng SECOND OPERATOR; Salinas Dukes MD Technologist:Latoya Pérez, RT(R)(CT); . CTDI: DLP: Trnscb Date/Time: 10/23/2022 (2012) tHILARIOR.JT18 Orig Print D/T: S: 10/23/2022 (2012) PAGE 2 Signed ReportGLUCOSE [id number] 20:23:00* Test Item Value Reference Range Interpretation Comme nts GLUCOSE BEDSIDE (test code = GLUBED) 123 MG/DL 70-110 H Performed by [facility] tified sheet pile driver operator at [facility] GLUCOSE [id number] 17:34:00* Test Item Value Reference Range Interpretation Comme nts GLUCOSE BEDSIDE (test code = GLUBED) 132 MG/DL 70-110 H Performed by [facility] tified sheet pile driver operator at [facility] GLUCOSE [id number] 11:57:00* Test Item Value Reference Range Interpretation Comme nts GLUCOSE BEDSIDE (test code = GLUBED) 118 MG/DL 70-110 H Performed by [facility] tified sheet pile driver operator at [facility] GLUCOSE [id number] 08:22:00* Test Item Value Reference Range Interpretation Comme nts GLUCOSE BEDSIDE (test code = GLUBED) 100 MG/DL 70-110 N Performed by [facility] [employer] sheet pile driver operator at [facility] BASIC METABOLIC [id number] 08:05:00* Test Item Value Reference Range Interpretation [...] code = CA) 7.8 mg/dL 8.0-10.5 L [id number] 08:05:00* Test Item Value Reference Range Interpretation Comme nts MAGNESIUM (test code = MAG) 1.72 mg/dL 1.80-2.40 L GLUCOSE [id number] 21:10:00* Test Item Value Reference Range Interpretation Comme nts GLUCOSE BEDSIDE (test code = GLUBED) 148 MG/DL 70-110 H 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 at [facility] GLUCOSE [id number] 17:29:00* Test Item Value Reference Range Interpretation Comme nts GLUCOSE BEDSIDE (test code = GLUBED) 102 MG/DL 70-110 N 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 at [facility] GLUCOSE [id number] 11:54:00* Test Item Value Reference Range Interpretation Comme nts GLUCOSE BEDSIDE (test code = GLUBED) 104 MG/DL 70-110 N Performed by [employer] sheet pile driver operator at [facility] CBC W/MANUAL [id number] 10:35:00* Test Item Value Reference Range Interpretation [...] (test code = PLTMORPH) LARGE PLATELETS GLUCOSE [id number] 07:57:00* Test Item Value Reference Range Interpretation Comme [facility] GLUCOSE BEDSIDE (test code = GLUBED) 95 MG/DL 70-110 N 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 at [facility] C REACTIVE [id number] 07:48:00* Test Item Value Reference Range Interpretation Comme [facility] C REACTIVE PROTEIN (test cod e = CRP) 36.0 mg/L <10.0 H BASIC METABOLIC [id number] 07:40:00* Test Item Value Reference Range Interpretation [...] code = CA) 7.3 mg/dL 8.0-10.5 L [id number] 07:40:00* Test Item Value Reference Range Interpretation Comme nts MAGNESIUM (test code = MAG) 1.50 mg/dL 1.80-2.40 L [id number] 07:04:00* Test Item Value Reference Range Interpretation Comme nts D-DIMER (test code = DDIMER) 5949 ng/mlFEU See_Comment HH Critical result called to Brigido RUIZLAB.JJ1 at 0701 10/21/22Nurse read back result and tech confirmed it's correct? YESTHROMBOSIS AND/OR PULMONARY EMBOLISM AND THE CLINICAL CUT- OFF VALUE FOR EXCLUSION (500 ng/mL FEU) OF THESE CONDITIONSIS VALIDATED BY THE STUDENT SUPPORT COUNSELOR OF THE METHOD. A NEGATIVE D-DIMER RESULT [...] this result as normal/abnormal. - DUP VEIN [id number] 00:00:00 [facility] HUANGName: MATHEW CASTILLO : 1960 Sex: M Name: MATHEW CASTILLO [facility] Barrera Huang : 1960 Age/S: 62 / M [address] [place] [address] Unit #: [id number] Loc: [place] [address] Phys: Skip Jaffe MD Acct: [id number] Dis Date: Status: ADM IN PHONE #: [phone] Exam Date: 10/21/2022820 FAX #: [phone] Reason: R/o DVT EXAMS: CPT CODE: [id number] DUP VEIN ASAEL 73855 PROCEDURE INFORMATION: Exam: US Duplex Lower Extremity [...] MD; Salinas Paris MD Technologist: [facility] Date/Time: 10/21/2022 (911) t.TUNGR.AB61 Orig Print D/T:S: 10/21/2022 (911) Probe: PAGE 1 Signed Report GLUCOSE [id number] 20:40:00* Test Item Value Reference Range Interpretation Comme [facility] GLUCOSE BEDSIDE (test code = GLUBED) 148 MG/DL 70-110 H 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 at [facility] GLUCOSE [id number] 16:46:00* Test Item Value Reference Range Interpretation Comme [facility] GLUCOSE BEDSIDE (test code = GLUBED) 122 MG/DL 70-110 H 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 at [facility] TROP-I HIGH [id number] 15:04:00* Test Item Value Reference Range Interpretation Comme [facility] TROP-I HIGH SENSITIVITY (test code = [...] the URL. These results were obtained using [employer] IM TnIHreagent. Results from different methodologies should not becompared to one another as quantitative results and URLs mayvary by method. BASIC METABOLIC [id number] 15:04:00* Test Item Value Reference Range Interpretation [...] CA) 7.1 mg/dL 8.0-10.5 L TROP-I HIGH [id number] 10:07:00* Test Item Value Reference Range Interpretation [...] URL. These results were obtained using Siemens AtellADAPTIX IM TnIHreagent. Results from different methodologies should not becompared to one another as quantitative results and URLs mayvary by method. CBC W/AUTO [id number] 09:54:00* Test Item Value Reference Range Interpretation [...] (test code = MDIFF) NO TROP-I HIGH [id number] 09:24:00* Test Item Value Reference Range Interpretation [...] the URL. These results were obtained using [employer] IM TnIHreagent. Results from different methodologies should not becompared to one another as quantitative results and URLs mayvary by method. GLUCOSE [id number] 08:49:00* Test Item Value Reference Range Interpretation Comme nts GLUCOSE BEDSIDE (test code = GLUBED) 102 MG/DL 70-110 N Performed by teto mcdaniel sheet pile driver operator at [facility] COMPREHENSIVE METABOLIC [id number] 02:08:00* Test Item Value Reference Range Interpretation [...] code = ALKP) 47 IUnit/L 20-125 N [id number] 02:08:00* Test Item Value Reference Range Interpretation Comme nts LIPASE (test code = LIP) 57 U/L 13-57 N PROTHROMBIN [id number] 02:05:00* Test Item Value Reference Range Interpretation Comme nts PROTHROMBIN TIME PATIENT (test code = PTP) [...] Infarction (to prevent recurrent infarct). THROMBOPLASTIN TIME [id number] 02:05:00* Test Item Value Reference Range Interpretation [facility] THROMBOPLASTIN TIME PARTIAL (test code = PTT) 26.1 Seconds 25.0-39.5 N Therapeutic Rang e: 50.4 - 88.3 Seconds Effective 07/21/2018 LACTIC [id number] 01:59:00* Test Item Value Reference Range Interpretation Comm nts LACTIC ACID (test code = LACT) 1.1 mmol/L 0.4-1.9 N CBC W/AUTO [id number] 01:51:00* Test Item Value Reference Range Interpretation [...] = MDIFF) NO - XR CHEST 1 [id number] 00:00:00 [facility]W CAST[place] : 1960 Sex: M FAX: Sofia Cheng NP [phone] [place]: St: ADM FAX: Salinas Callahan I [phone] Name: MATHEW CASTILLO [facility] : 1960 Age/S: 62/M [address] [place] [address] Unit #: [id number] Loc: [address] [place] [address] Phys: Sofia Cheng NP Acct: [id number] Dis Date: Status: ADM IN PHONE #: [phone] Exam Date: 10/20/20227 FAX #: [phone] Reason: Sepsis EXAMS: CPT CODE: [id number] XR CHEST 1 V 66724 PROCEDURE INFORMATION: Exam: XR Chest Exam date and time: 10/20/2022 1:02AM Age: 62 years old Clinical indication: Pain; Other: Sepsis TECHNIQUE: Imaging protocol: Radiologic exam of the chest. Views: 1 view. COMPARISON: CT CHEST W/CONTRAST, CT ABD PELVIS W/CONT 39:14 PM FINDINGS: Lungs: Mild interstitial pulmonary edema. No focal consolidation. Pleural spaces:Unremarkable. No pleural effusion. No pneumothorax. Heart/Mediastinum: No cardiomegaly. Bones/joints: No acute abnormality. IMPRESSION: Mild interstitial pulmonary edema. No focal consolidation. at 0214 Reported and signed by:Reinaldo Jacobs M.D. CC: Sofia Cheng NP; Salinas Dukes MD Technologist: Xochitl Dubon RT(R) Trnscrd Date/Time/By: 10/20/2022 (213) : By: [id number] Orig Print D/T: S: 10/20/2022 (214) PAGE 1 Signed ReportGLUCOSE [id number] 21:00:00* Test Item Value Reference Range Interpretation Comme nts GLUCOSE BEDSIDE (test code = GLUBED) 135 MG/DL 70-110 H Performed by cer shashankied sheet pile driver operator at [facility] URINALYSIS [id number] 20:03:00* Test Item Value Reference Range Interpretation [...] MUCU) 1+ /LPF NONE SEEN UR SODIUM [id number] 20:03:00* Test Item Value Reference Range Interpretation Comme nts UR SODIUM RANDOM (test code = ALPHONSE) 102 MEQ/L The Reference Ra nge and Method Performance specificationshave not been established for this fluid. The test resultshould be correlated into the clinical context forinterpretation. UR PROTEIN [id number] 20:03:00* Test Item Value Reference Range Interpretation Comme nts UR PROTEIN RANDOM (test code = PROTU) 79 mg/dL UR CREATININE [id number] 20:03:00* Test Item Value Reference Range Interpretation Comme nts UR CREATININE RANDOM (test code = CREATU) 111.9 mg/dL The Reference Ra nge and Method Performance specificationshave not been established for this fluid. The test resultshould be correlated into the clinical context forinterpretation. UR OSMOLALITY [id number] 20:03:00* Test Item Value Reference Range Interpretation Comme nts UR OSMOLALITY RANDOM (test c ode = OSMOU) 575 MOS/KG 300-1000 UR OSMOLALITY [id number] 20:02:00* Test Item Value Reference Range Interpretation Comme nts UR OSMOLALITY RANDOM (test c ode = OSMOU) 575 MOS/KG 300-1000 N GLUCOSE [id number] 17:18:00* Test Item Value Reference Range Interpretation Comme nts GLUCOSE BEDSIDE (test code = GLUBED) 122 MG/DL 70-110 H 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 at [facility] GLUCOSE [id number] 12:48:00* Test Item Value Reference Range Interpretation Comme nts GLUCOSE BEDSIDE (test code = GLUBED) 109 MG/DL 70-110 N 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 at [facility] GLUCOSE [id number] 07:53:00* Test Item Value Reference Range Interpretation Comme nts GLUCOSE BEDSIDE (test code = GLUBED) 96 MG/DL 70-110 N 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 at [facility] BASIC METABOLIC [id number] 07:51:00* Test Item Value Reference Range Interpretation [...] code = CA) 7.5 mg/dL 8.0-10.5 L [id number] 07:51:00* Test Item Value Reference Range Interpretation Comme nts MAGNESIUM (test code = MAG) 1.65 mg/dL 1.80-2.40 L CBC W/AUTO [id number] 07:07:00* Test Item Value Reference Range Interpretation [...] (test c ode = MDIFF) NO GLUCOSE [id number] 20:44:00* Test Item Value Reference Range Interpretation Comme nts GLUCOSE BEDSIDE (test code = GLUBED) 116 MG/DL 70-110 H 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 at [facility] GLUCOSE [id number] 18:07:00* Test Item Value Reference Range Interpretation Comme nts GLUCOSE BEDSIDE (test code = GLUBED) 98 MG/DL 70-110 N 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 at [facility] GLUCOSE [id number] 12:23:00* Test Item Value Reference Range Interpretation Comme nts GLUCOSE BEDSIDE (test code = GLUBED) 135 MG/DL 70-110 H 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 at [facility] GLUCOSE [id number] 11:22:00* Test Item Value Reference Range Interpretation Comme nts GLUCOSE BEDSIDE (test code = GLUBED) 104 MG/DL 70-110 N Performed by teto mcdaniel sheet pile driver operator at [facility] BASIC METABOLIC [id number] 08:12:00* Test Item Value Reference Range Interpretation [...] code = CA) 7.4 mg/dL 8.0-10.5 L [id number] 08:12:00* Test Item Value Reference Range Interpretation Comme nts MAGNESIUM (test code = MAG) 1.48 mg/dL 1.80-2.40 L CBC W/AUTO [id number] 08:09:00* Test Item Value Reference Range Interpretation [...] (test c ode = MDIFF) NO GLUCOSE [id number] 05:56:00* Test Item Value Reference Range Interpretation Comme nts GLUCOSE BEDSIDE (test code = GLUBED) 104 MG/DL 70-110 N 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 at [facility] GLUCOSE [id number] 03:31:00* Test Item Value Reference Range Interpretation Comme nts GLUCOSE BEDSIDE (test code = GLUBED) 129 MG/DL 70-110 H 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 at [facility] GLUCOSE [id number] 12:50:00* Test Item Value Reference Range Interpretation Comme nts GLUCOSE BEDSIDE (test code = GLUBED) 177 MG/DL 70-110 H 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 at [facility] CBC W/AUTO [id number] 10:14:00* Test Item Value Reference Range Interpretation [...] 0.00 x10 3/uL 0.0-0.1 N VITAMIN D [id number] 08:19:00* Test Item Value Reference Range Interpretation Comme nts VITAMIN D 25-HYDROXY (test c ode = VITD25) 25.5 ng/mL 30-100 L Indication for Test: PTH DisorderCOMPREHENSIVE METABOLIC [id number] 08:14:00* Test Item Value Reference Range Interpretation [...] code = ALKP) 62 IUnit/L 20-125 N [id number] 08:14:00* Test Item Value Reference Range Interpretation Comme nts PHOSPHOROUS (test code = PHOS) 2.6 MG/DL 2.5-4.9 N [id number] 08:14:00* Test Item Value Reference Range Interpretation Comme nts MAGNESIUM (test code = MAG) 1.50 mg/dL 1.80-2.40 L GLUCOSE [id number] 07:40:00* Test Item Value Reference Range Interpretation Comme nts GLUCOSE BEDSIDE (test code = GLUBED) 105 MG/DL 70-110 N Performed by cer tifOwl biomedical sheet pile driver operator at [facility] GLUCOSE [id number] 17:26:00* Test Item Value Reference Range Interpretation Comme nts GLUCOSE BEDSIDE (test code = GLUBED) 113 MG/DL 70-110 H Performed by Spring tified sheet pile driver operator at [facility] PROTHROMBIN [id number] 15:23:00* Test Item Value Reference Range Interpretation Comme [facility] PROTHROMBIN TIME PATIENT (test code = [...] (to prevent recurrent infarct). TSH REFLEX TO [id number] 14:32:00* Test Item Value Reference Range [facility]ation [facility] REF[facility] TO FT4 (test code = TSHREFLEX) 1.59 IU/mL 0.42-5.47 N [id number] 14:19:00* Test Item Value Reference Range Interpretation Comme [facility] HGBA1C% (test code = HGBA1C%) 5.5 %A1C 4.8-6.0 N [id number] 14:13:00* Test Item Value Reference Range Interpretation [facility] MAGNESIUM (test code = MAG) 1.91 mg/dL 1.80-2.40 N COMPREHENSIVE METABOLIC [id number] 14:13:00* Test Item Value Reference Range Interpretation Comme [facility] SODIUM (test code = NA) 138 [...] = ALKP) 62 IUnit/L 20-125 N GLUCOSE [id number] 12:54:00* Test Item Value Reference Range Interpretation Comme nts GLUCOSE BEDSIDE (test code = GLUBED) 102 MG/DL 70-110 N 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 at [facility] GLUCOSE [id number] 10:14:00* Test Item Value Reference Range Interpretation Comme [facility] GLUCOSE BEDSIDE (test code = GLUBED) 110 MG/DL 70-110 N Performed by Spring tified sheet pile driver operator at [facility] CBC W/AUTO [id number] 05:58:00* Test Item Value Reference Range Interpretation [...] Notes Date/Time Note Provider Source 2023-02-14 02:12:00 [facility] ([facility]) Discharge Summary REPORT#:[id number] REPORT STATUS: Signed REPORT INITIALIZATION DATE:02/14/23 TIME: 211 PATIENT: MATHEW CASTILLO UNIT #: [id number] ROOM/BED: 5507-1 : 59 AGE: 62 SEX: M ATTEND: Salinas Alba MD ADM AUTHOR: Salinas Alba MD REPT SERVICE DT/TIME: 02/14/23211 * ALL edits or amendments must be made on the electronic/computer document * PCP PCP PCP: PCP: Lakhwinder Vasquez MD Discharge to: home General Information Date [...] BPH-s/p UroLift 01/03/2023, schizophrenia was transferred from [facility] ER with acute kidney injury and [...] (Auto) (14.0 - 32.0 %) 7.1 L [place] % (Auto) (4.8 - 9.0 %) 8.1 Eos % (Auto) (0.3 - 3.7 %) 0.4 Baso % (Auto) (0.0 - 2.0 %) 0.1 Neut # (Auto) (2.0 - 7.6 x10 3/uL) 9.37 H Lymph # (Auto) (1.0 - 3.8 x10 3/uL) 0.79 L [place] # (Auto) (0.1 - 0.8 x10 3/uL) [...] 3/uL) 0.[address] ABD PELVIS W/CONT 88789 EXAM: CT abdomen and pelvis with contrast [...] technique. Discharge Instructions PCP PCP: PCP: Lakhwinder Vasquez MD )( Discharge to: Home/Self Care Discharge Instructions Additional Discharge Routines: PCP Follow-Up, Line Up Examiner Follow-Up )( Diet: Regular Follow-up Appointments PCP follow up: PCP: Lakhwinder Vasquez MD PCP follow up timeframe: In 5 days Attending Physician: Attending Physician: Salinas Alba MD Attending physician follow up timeframe: In 1-2 weeks Consulting provider 1: Provider 1: Dave Jones MD Specialty: Urology Consult follow up timeframe: In 1-2 weeks at [facility] #:[id number] END OF REPORT [facility] 2023-02-04 04:06:00 [facility] ([facility]) Discharge Summary REPORT#:[id number] REPORT STATUS: Signed REPORT INITIALIZATION DATE:02/04/23 TIME: 405 PATIENT: MATHEW CASTILLO UNIT #: [id number] ROOM/BED: [place] [address] : 58 AGE: 62 SEX: M ATTEND: Salinas Alba MD ADM AUTHOR: Salinas Alba MD REPT SERVICE DT/TIME: 02/04/23 0406 * ALL edits or amendments must be made on the electronic/computer document * PCP PCP PCP: PCP: Lakhwinder Vasquez MD Discharge to: home General Information Date [...] lift yesterday by Dr. Jones transferred from [place] for urology evaluation secondary to hematuria after bladder irrigation failed. Patient was seen and evaluated by Dr. 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 Last admitted to [facility] on 10/16/22 with urinary retention. Abnormal [...] of motion, normal sensory, normal motor function Neuro/NEWSCAST DIRECTOR: alert, oriented X 3 Skin: dry, intact, [...] % (Auto) (14.0 - 32.0 %) 20.8 [place] % (Auto) (4.8 - 9.0 %) 7.7 Eos % (Auto) (0.3 - 3.7 %) 8.1 H Baso % (Auto) (0.0 - 2.0 %) 0.7 Neut # (Auto) (2.0 - 7.6 x10 3/uL) 4.51 Lymph # (Auto) (1.0 - 3.8 x10 3/uL) 1.51 [place] # (Auto) (0.1 - 0.8 x10 3/uL) [...] 3/uL) 0.[address] ABD PELVIS W/CONT 88950 H 20 TIME OF STUDY: 01/04/2023 7:55 [...] hernia. Discharge Instructions PCP PCP: PCP: Lakhwinder Vasquez MD )( Discharge to: Home/Self Care Discharge Instructions Additional Discharge Routines: PCP Follow-Up, Line Up Examiner Follow-Up )( Diet: Cardiac Follow-up Appointments PCP follow up: PCP: Lakhwinder Vasquez MD PCP follow up timeframe: In 5 days Special instructions: CALL TO MAKE APPOINTMENT Consulting provider 1: Provider 1: Dave Jones MD Specialty: Urology Special instructions: CALL TO SCHEDULE APPOINTMENT at [address] [place] [address] #:[phone] END OF REPORT [facility] 2023-01-27 18:31:00 [id number] [place] [address] PATIENT NAME: MATHEW CASTILLO ADMIT DATE: 01/06/23 ACCOUNT NO: [id number] ROOM NO: G.C146 AGE: 62 REPORT TYPE: 360 - QUERY RESPONSE DOCUMENT SEX: M ADMITTING PHYSICIAN:Salinas Alba MD ATTENDING PHYSICIAN:Salinas Alba MD Provider Query QUERY TEXT: Condition General 360MD Query related questions should be directed to: [facility] Coding Query Helpline [Based on the below [...] AM at 1831 PATIENT NAME: MATHEW CASTILLO [facility] 2023-01-27 13:09:00 [id number] [place] [address] PATIENT NAME: MATHEW CASTILLO ADMIT DATE: 01/06/23 ACCOUNT NO: [id number] ROOM NO: G.C146 AGE: 62 REPORT TYPE: 360 - QUERY RESPONSE DOCUMENT SEX: M ADMITTING PHYSICIAN:Salinas Alba MD ATTENDING PHYSICIAN:Salinas Alba MD Provider Query QUERY TEXT: Condition General 360MD Query related questions should be directed to: [facility] Coding Query Helpline [Based on your medical judgement and the clinical indicators listed below kindly specify the underlying cause of the patient's heamaturia(Hematuria due to bladder lift surgery, hematuria due to UTI, hematuria unspecified, or other more appropriate diagnosis)?.] The patient's Clinical Indicators include: 62-year-old male with last medical history of, BPH, s/p bladder lift yesterdayby Dr. Jones transferred from [place] for urology evaluation secondary tohematuria after bladder [...] AM at 1309 PATIENT NAME: MATHEW CASTILLO [facility] 2023-01-27 13:09:00 [id number] [place] [address] PATIENT NAME: MATHEW CASTILLO ADMIT DATE: 01/06/23 ACCOUNT NO: [id number] ROOM NO: G.C146 AGE: 62 REPORT TYPE: 360 - QUERY RESPONSE DOCUMENT SEX: M ADMITTING PHYSICIAN:Salinas Alba MD ATTENDING PHYSICIAN:Salinas Alba MD Provider Query QUERY TEXT: Condition General 360MD Query related questions should be directed to: [facility] Coding Query Helpline [Based on your clinical [...] culture, likely could be either contaminant or direct marketing representative of transient bacteremia: progress note 01/11/2023 Options provided: -- Respond - Create new note now -- Dismiss - Not applicable / Not valid -- Dismiss - Clinically unable to determine / Unknown -- Assign to another provider QUERY RESPONSE: sepsis was not confirmed, patient had localized infection Query created by: MADY PEREZ on 01/22/2023 3:09 AM at 1309 PATIENT NAME: MATHEW CASTILLO [facility] 2023-01-22 17:40:00 [facility]) Internal Medicine Prog. Note REPORT#:[id number] REPORT STATUS: Signed REPORT INITIALIZATION DATE:01/22/23 TIME: 1739 PATIENT: MATHEW CASTILLO UNIT #: [id number] ROOM/BED: [place] [address] : 59 AGE: 62 SEX: M ATTEND: Salinas Alba MD ADM AUTHOR: Sofia Cheng SECOND OPERATOR REPT SERVICE DT/TIME: 01/22/231739 * ALL [...] 0700 01/21 1900 Intake Total Output Total 2099 Balance -2099 Output, Urine 2099 PATIENT WEIGHT: Weight (lb): Weight (oz): Weight [...] Sodium Chloride (SODIUM CHLORIDE 0.9%) 1,000 ML .[id number] IV Haloperidol (HALDOL) 10 MG BID PO [...] (Auto) (14.0 - 32.0 %) 9.8 L [place] % (Auto) (4.8 - 9.0 %) 9.0 Eos % (Auto) (0.3 - 3.7 %) 5.7 H Baso % (Auto) (0.0 - 2.0 %) 0.4 Neut # (Auto) (2.0 - 7.6 x10 3/uL) 7.35 Lymph # (Auto) (1.0 - 3.8 x10 3/uL) 0.97 L [place] # (Auto) (0.1 - 0.8 x10 3/uL) [...] discharged see discharge summery at 2132 RPT #:[id number] END OF REPORT [facility] 2023-01-22 12:19:00 [facility] ([facility]) Nephrology Consultation Note REPORT#:[id number] REPORT STATUS: Signed REPORT INITIALIZATION DATE:01/22/23 TIME: 1218 PATIENT: MATHEW CASTILLO UNIT #: [id number] ROOM/BED: [place] [address] : 59 AGE: 62 SEX: M ATTEND: Salinas Alba MD ADM AUTHOR: Carmen Kemp REPT SERVICE DT/TIME: 01/22/23 1219 * ALL edits or amendments must be made on the electronic/computer document * History of Present Illness Requesting clinician: Salinas Deshpande/MARLENA Black Reason for consult: CHANDRA Chief complaint: Urinary Retention PCP: PCP: Lakhwinder Vasquez MD HPI: is a pleasant 62 years [...] patient given empirc abx and transferred to [facility] yesterday for further evaluation and management. Initial [...] PRN 01/21 0645 DC (TYLENOL) PO 01/22 05 Diagnostic Agents Sig/Mark Start time Last Medication Dose Route Stop Time Status Admin Iopamidol 100 ML .STK-MED ONE 01/22 1234 DC 01/22 (ISOVUE-300 100ML) IV 01/22 1235 1234 Electrolytic, Caloric, And Scott Sig/Mark Start time Last Medication Dose Route Stop Time Status Admin Sodium Chloride 1,000 ML .[id number] 01/21 2330 AC 01/22 (SODIUM CHLORIDE IV 04/21 2328 1359 0.9%) Sodium Chloride 1,000 ML .Q10H 01/21 645 DC 01/21 (SODIUM CHLORIDE IV 01/22 533 1651 0.9%) Gastrointestinal Drugs Sig/Mark Start time Last Medication Dose Route Stop Time Status Admin Docusate Sodium 100 MG BID PRN PRN 01/21 2330 AC (COLACE) PO 04/21 2328 Ondansetron HCl 4 MG Q4H PRN PRN 01/21 2330 AC (ZOFRAN) IV 04/21 2328 Ondansetron HCl 4 MG Q6H PRN PRN 01/21 645 DC (ZOFRAN) IV 01/22 0533 Allergies: Coded [...] Sodium Chloride (SODIUM CHLORIDE 0.9%) 1,000 ML .[id number] IV Haloperidol (HALDOL) 10 MG BID PO [...] (Auto) (14.0 - 32.0 %) 9.8 L [place] % (Auto) (4.8 - 9.0 %) 9.0 Eos % (Auto) (0.3 - 3.7 %) 5.7 H Baso % (Auto) (0.0 - 2.0 %) 0.4 Neut # (Auto) (2.0 - 7.6 x10 3/uL) 7.35 Lymph # (Auto) (1.0 - 3.8 x10 3/uL) 0.97 L [place] # (Auto) (0.1 - 0.8 x10 3/uL) [...] and . at 1923 at 1933 RPT #:[id number] END OF REPORT [facility] 2023-01-21 19:40:00 [facility] ([facility]) Urology Consult Note REPORT#:[id number] REPORT STATUS: Signed REPORT INITIALIZATION DATE:01/21/23 TIME: 1939 PATIENT: MATHEW CASTILLO [place] UNIT #: [id number] ROOM[address]BED: [address] : 59 AGE: 62 SEX: M [...] with Dr. Jones and is s/p UroLift 2022. Patient had readmission earlier this month for hematuria after UroLift however this resolved with conservative measures. He was discharged and then had recent voiding trial 01/14/23 in clinic however send have urinary retention at outside hospital and was transferred to [place] with acute renal failure and urinary retention. Outside labs showed creatinine of 5.6, GFR 11. They were able to place a catheter at the outside hospital and his creatinine currently is 2.6 GFR 27. Patient feels overall well he has a [address] that is patent and [...] 01/21 162 O2 Delivery Room air 01/21 0516 24 [...] (Auto) (14.0 - 32.0 %) 7.1 L [place] % (Auto) (4.8 - 9.0 %) 8.1 Eos % (Auto) (0.3 - 3.7 %) 0.4 Baso % (Auto) (0.0 - 2.0 %) 0.1 Neut # (Auto) (2.0 - 7.6 x10 3/uL) 9.37 H Lymph # (Auto) (1.0 - 3.8 x10 3/uL) 0.79 L [place] # (Auto) (0.1 - 0.8 x10 3/uL) [...] in outside hospital and was transferred to [place]. He has indwelling Black placed from the outside hospital that is patent and draining clear urine. Creatinine has down trended to 2.6 from 5.6. -Continue indwelling Black do not remove -Trend creatinine -Discussed patient to follow-up with our clinic 01/30/2023 for nurse visit catheter removal and CIC teaching for which he was amenable to trying Crystal Alberts MD -covering for Dr. Jones [facility] at 1948 RPT #:[id number] END OF REPORT [facility] 2023-01-21 10:48:00 [facility] ([facility]) History Physical - Adult REPORT#:[id number] REPORT STATUS: Signed REPORT INITIALIZATION DATE:01/21/23 TIME: 1047 PATIENT: MATHEW CASTILLO UNIT #: [id number] ROOM/BED: [place] [address] : 59 AGE: 62 SEX: M ATTEND: Salinas Alba MD ADM AUTHOR: Sofia Cheng SECOND OPERATOR REPT SERVICE DT/TIME: 01/21/23 1048 * ALL edits or amendments must be made on the electronic/computer document * History of Present Illness HPI Chief complaint: Acute kidney injury Urinary retention HPI: 62-year-old male with last medical history of, BPH-s/p UroLift 01/03/2023, schizophrenia was transferred from [facility] ER with acute kidney injury and [...] of motion, normal sensory, normal motor function Neuro/NEWSCAST DIRECTOR: alert, oriented X 3 Skin: dry, intact, [...] (Auto) (14.0 - 32.0 %) 7.1 L [place] % (Auto) (4.8 - 9.0 %) 8.1 Eos % (Auto) (0.3 - 3.7 %) 0.4 Baso % (Auto) (0.0 - 2.0 %) 0.1 Neut # (Auto) (2.0 - 7.6 x10 3/uL) 9.37 H Lymph # (Auto) (1.0 - 3.8 x10 3/uL) 0.79 L [place] # (Auto) (0.1 - 0.8 x10 3/uL) [...] of motion, normal sensory, normal motor function Neuro/NEWSCAST DIRECTOR: alert, oriented X 3 Skin: dry, intact, no gross abnormalities Psychiatry: Mild anxiety Diagnosis, Assessment Plan Free Text DxA P Notes Free Text DxA P Notes: Assessment: 62-year-old male with last medical history of, BPH-s/p UroLift 01/03/2023, schizophrenia was transferred from [facility] ER with acute kidney injury and [...] on patient's clinical course at 0300 at 1106 RPT #:[id number] END OF REPORT [facility] 2023-01-21 05:27:00 [facility] ([facility]) EMERGENCY PROVIDER REPORT REPORT#:[id number] REPORT STATUS: Signed DATE:01/21/23 TIME: 526 PATIENT: MATHEW CASTILLO UNIT #: [id number] [address]: [address] AGE: 62 SEX: M PCP PHYS: Lakhwinder Vasquez MD SERVICE AUTHOR: Elizabeth Davenport APRNNP * ALL edits or amendments must be made on the electronic/computer document * Elizabeth Davenport 01/21/23 0527: HPI-General Illness Free Text HPI Notes Free Text HPI Notes 62-year-old male with PMH as listed below presents to the ER as a transfer from [facility] for diagnoses of ARF, urinary retention. [...] 56 and 1 L normal saline bolus ONLINE USER EXPERIENCE STRATEGIST upon arrival, patient notes improved but not completely resolved lower abdominal pain. He denies any additional symptoms such as recent fever, chest pain, shortness of breath, N/V/D/C, testicular pain or any other symptoms. General Initial Greet Date/Time 01/21/23 0514 PCP ying, iliana VASQUEZ, PCP, [facility] Presentation Chief Complaint [...] No palpable masses or pulsatile masses. Negative [place] Sign. No TTP at [place] : Indwelling Black, straw-colored, non-cloudy urine, 600ml Ext: no obvious deformity. Neuro: awake and alert, speech NL for age, behavior age-appropriate. Skin: color NL, normal temperature, intact, no visible rashes Interpretation Diagnostics Lab Results Interpretation Results Laboratory Tests 01/21/23517: [Embedded Image Not Available] Laboratory Tests: 01/21 [...] (Auto) (14.0 - 32.0 %) 7.1 L [place] % (Auto) (4.8 - 9.0 %) 8.1 Eos % (Auto) (0.3 - 3.7 %) 0.4 Baso % (Auto) (0.0 - 2.0 %) 0.1 Neut # (Auto) (2.0 - 7.6 x10 3/uL) 9.37 H Lymph # (Auto) (1.0 - 3.8 x10 3/uL) 0.79 L [place] # (Auto) (0.1 - 0.8 x10 3/uL) [...] Free Text Consult Notes Consulted with Dr. Jones at 637AM 01/21/2023. Text [...] Reason for Hospitalization CHANDRA )( Accepted Time 0624 )( Accepted Date [...] the patient along with involvement of the PA/SECOND OPERATOR. I agree with the PA/facilities operator findings and plan. I have performed all aspects of MDM as documented including: evaluation of the patient/ patient's condition(s), review and analysis of available data, and determination of risk of patient management decisions. at 2244 at 1025 [facility] #:[id number] END OF REPORT [facility] 2023-01-15 09:31:00 [phone] [place] [address] PATIENT NAME: MATHEW CASTILLO ADMIT DATE: 01/06/23 ACCOUNT NO: [id number] ROOM NO: G.C146 AGE: 62 REPORT TYPE: 360 - QUERY RESPONSE DOCUMENT SEX: M ADMITTING PHYSICIAN:Salinas Alba MD ATTENDING PHYSICIAN:Salinas Alba MD Provider Query QUERY TEXT: Clarification Rule In Rule Out 360MD Query related questions should be directed to: [facility] Coding Query Help-line Based on your clinical [...] Dion Mauro on 01/15/2023 6:06 AM at 0907 PATIENT NAME: CASTILLOMATHEW MYLES [facility] 2023-01-11 17:08:00 [phone] [facility] [place] on [address] [address] PATIENT NAME: MATHEW CASTILLO ADMIT DATE: 01/06/23 ACCOUNT NO: [id number] ROOM NO: [facility] AGE: 62 REPORT TYPE: PROGRESS NOTE [...] he was admitted through Emergency Room to [facility] facility in [place], and from there, he was transferred to [facility]. The patient PATIENT NAME: MATHEW CASTILLO was evaluated by Urology Service. He was placed on broad-spectrum IV antibiotics. His urine culture has shown growth of Pseudomonas aeruginosa and 1 out of 2 blood culture has shown growth of Enterococcus faecalis. The Enterococcus faecalis growing in 1 blood culture, likely could be either contaminant or direct marketing representative of transient bacteremia. Clinically is doing [...] Date Transcribed: 01/11/2023 18:52:55 ESTRADA/JORGE Receipt ID: [id number] Authenticated and Edited by Skip Jaffe MD On 01/22/23 5:19:12 AM at 0520 PATIENT NAME: MATHEW CASTILLO [facility] 2023-01-10 21:43:00 [facility] ([facility]) Internal Medicine Prog. Note REPORT#:[id number] REPORT STATUS: Signed REPORT INITIALIZATION DATE:01/10/23 TIME: 2142 PATIENT: MATHEW CASTILLO UNIT #: [id number] ROOM/BED: [place] [address] : 59 AGE: 62 SEX: M ATTEND: Salinas Alba MD ADM AUTHOR: Sofia Cheng NP REPT SERVICE DT/TIME: 01/10/232142 * ALL edits or amendments must be made on the electronic/computer document * Subjective Chief complaint: Hematuria HPI: 62-year-old male with last medical history of, BPH, s/p bladder lift yesterday by Dr. Jones transferred from [place] for urology evaluation secondary to hematuria after bladder irrigation failed. pt was seen and evaluated by Dr. 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 Last admitted to [facility] on 10/16/22 with urinary retention. Abnormal [...] Sodium Chloride (SODIUM CHLORIDE 0.9%) 1,000 ML .[id number] IV (DC) Sodium Chloride (SODIUM CHLORIDE 0.9%) [...] of motion, normal sensory, normal motor function Neuro/NEWSCAST DIRECTOR: 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 Jones transferred from [place] for urology evaluation secondary to hematuria after bladder irrigation failed. pt was seen and evaluated by Dr. 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 Last admitted to [facility] on 10/16/22 with urinary retention. Abnormal [...] urology outpatient at 0024 at 0814 RPT #:[id number] END OF REPORT [facility] 2023-01-10 20:39:00 [facility] ([facility]) Infectious Dis. Progress Note REPORT#:[id number] REPORT STATUS: Signed REPORT INITIALIZATION DATE:01/10/23 TIME: 2038 PATIENT: MATHEW CASTILLO UNIT #: [id number] ROOM/BED: [facility]1 : 59 AGE: 62 SEX: M [...] home on oral ciprofloxacin. at 0244 RPT #:[id number] END OF REPORT [facility] 2023-01-10 08:39:00 [id number] [place] [address] PATIENT NAME: MATHEW CASTILLO ADMIT DATE: 01/06/23 ACCOUNT NO: [id number] ROOM NO: [facility] AGE: 62 REPORT TYPE: PROGRESS NOTE [...] he had undergone UroLift surgery by Dr. Jones and subsequently was discharged; however, he was [...] Dictated: 01/10/2023 08:39:27 Date Transcribed: 01/10/2023 09:42:11 DORADO/KYLE Receipt ID: [id number] Authenticated and Edited by Skip Jaffe MD On 01/22/23 5:19:04 AM at 0520 PATIENT NAME: MATHEW CASTILLO [facility] 2023-01-09 22:29:00 [facility]) Internal Medicine Prog. Note REPORT#:[id number] REPORT STATUS: Signed REPORT INITIALIZATION DATE:01/09/23 TIME: 2228 PATIENT: MATHEW CASTILLO UNIT #: [id number] ROOM/BED: [place] [address] : 58 AGE: 62 SEX: M ATTEND: Salinas Alba MD ADM AUTHOR: Sofia Cheng NP REPT SERVICE DT/TIME: 01/09/232228 * ALL edits or amendments must be made on the electronic/computer document * Subjective Chief complaint: Hematuria HPI: 62-year-old male with last medical history of, BPH, s/p bladder lift yesterday by Dr. Jones transferred from [place] for urology evaluation secondary to hematuria after bladder irrigation failed. pt was seen and evaluated by Dr. 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 Last admitted to [facility] on 10/16/22 with urinary retention. Abnormal [...] Sodium Chloride (SODIUM CHLORIDE 0.9%) 1,000 ML .[id number] IV Sodium Chloride (SODIUM CHLORIDE 0.9%) 1,000 [...] % (Auto) (14.0 - 32.0 %) 20.8 [place] % (Auto) (4.8 - 9.0 %) 7.7 Eos % (Auto) (0.3 - 3.7 %) 8.1 H Baso % (Auto) (0.0 - 2.0 %) 0.7 Neut # (Auto) (2.0 - 7.6 x10 3/uL) 4.51 Lymph # (Auto) (1.0 - 3.8 x10 3/uL) 1.51 [place] # (Auto) (0.1 - 0.8 x10 3/uL) [...] of motion, normal sensory, normal motor function Neuro/NEWSCAST DIRECTOR: 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 Jones transferred from [place] for urology evaluation secondary to hematuria after bladder irrigation failed. pt was seen and evaluated by Dr. 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 Last admitted to [facility] on 10/16/22 with urinary retention. Abnormal [...] present care at 2359 at 1240 RPT #:[id number] END OF REPORT [facility] 2023-01-09 19:20:00 [facility] ([facility]) Infectious Dis. Progress Note REPORT#:[id number] REPORT STATUS: Signed REPORT INITIALIZATION DATE:01/09/23 TIME: 1919 PATIENT: MATHEW CASTILLO UNIT #: [id number] ROOM/BED: [place] [address] : 59 AGE: 62 SEX: M ATTEND: [...] home on oral ciprofloxacin. at 0432 RPT #:[id number] END OF REPORT [facility] 2023-01-09 18:36:00 [id number] [place] [address] PATIENT NAME: MATHEW CASTILLO ADMIT DATE: 01/06/23 ACCOUNT NO: [id number] ROOM NO: G.C146 AGE: 62 REPORT TYPE: [...] was PATIENT NAME: MATHEW CASTILLO admitted to [place], and from there, he was transferred to [facility] for urology followup. The patient was on [...] [facility] Receipt ID: [id number] Authenticated and Edited by Skip Jaffe MD On 01/22/23 5:18:55 AM at 0520 PATIENT NAME: MATHEW CASTILLO [facility] 2023-01-09 11:30:00 [facility]) Urology Progress Note REPORT#:[id number] REPORT STATUS: Signed REPORT INITIALIZATION DATE:01/09/23 TIME: 113 PATIENT: MATHEW CASTILLO UNIT #: [id number] ROOM/BED: [place] [address] : 59 AGE: 62 SEX: M ATTEND: Salinas Alba MD ADM AUTHOR: Dave Jones MD REPT SERVICE DT/TIME: 01/09/23 1130 * [...] as planned in clinic at 1131 RPT #:[id number] END OF REPORT [facility] 2023-01-08 21:19:00 [facility] ([facility]) Internal Medicine Prog. Note REPORT#:[id number] REPORT STATUS: Signed REPORT INITIALIZATION DATE:01/08/23 TIME: 2118 PATIENT: MATHEW CASTILLO UNIT #: [id number] ROOM/BED: [place] [address] : 59 AGE: 62 SEX: M ATTEND: Salinas Alba MD ADM AUTHOR: Sofia Cheng SECOND OPERATOR REPT SERVICE DT/TIME: 01/08/232118 * ALL edits or amendments must be made on the electronic/computer document * Subjective Chief complaint: Hematuria HPI: 62-year-old male with last medical history of, BPH, s/p bladder lift yesterday by Dr. Jones transferred from [place] for urology evaluation secondary to hematuria after bladder irrigation failed. pt was seen and evaluated by Dr. 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 Last admitted to [facility] on 10/16/22 with urinary retention. Abnormal [...] Sodium Chloride (SODIUM CHLORIDE 0.9%) 1,000 ML .[id number] IV Sodium Chloride (SODIUM CHLORIDE 0.9%) 1,000 ML BOLUS IV Results Findings/Data: Laboratory Tests 01/08/23 0325: [Embedded Image Not Available] Laboratory Tests 01/08 [...] % (Auto) (14.0 - 32.0 %) 22.3 [place] % (Auto) (4.8 - 9.0 %) 6.9 Eos % (Auto) (0.3 - 3.7 %) 9.9 H Baso % (Auto) (0.0 - 2.0 %) 0.9 Neut # (Auto) (2.0 - 7.6 x10 3/uL) 3.89 Lymph # (Auto) (1.0 - 3.8 x10 3/uL) 1.46 [place] # (Auto) (0.1 - 0.8 x10 3/uL) [...] of motion, normal sensory, normal motor function Neuro/NEWSCAST DIRECTOR: 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 Jones transferred from [place] for urology evaluation secondary to hematuria after bladder irrigation failed. pt was seen and evaluated by Dr. 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 Last admitted to [facility] on 10/16/22 with urinary retention. Abnormal [...] present care at 2359 at 1240 RPT #:[id number] END OF REPORT [facility] 2023-01-08 18:59:00 [facility] ([facility]) Infectious Dis. Progress Note REPORT#:[id number] REPORT STATUS: Signed REPORT INITIALIZATION DATE:01/08/23 TIME: 1858 PATIENT: MATHEW CASTILLO UNIT #: [id number] ROOM/BED: [place] [address] : 59 AGE: 62 SEX: M ATTEND: Salinas Alba MD ADM AUTHOR: Skip Jaffe MD REPT SERVICE DT/TIME: 01/08/23 1859 * ALL edits or amendments must be [...] on January 03, [address] Reinaldo Jonse. Recurrent fever and leukocytosis improved. Rule out [...] home on oral ciprofloxacin. at 0321 RPT #:[id number] END OF REPORT [facility] 2023-01-08 18:22:00 [id number] [place] [id number] PATIENT NAME: MATHEW CASTILLO ADMIT DATE: 01/06/23 ACCOUNT NO: [id number] ROOM NO: G.C146 AGE: 62 REPORT TYPE: [...] [facility] Receipt ID: [id number] Authenticated and Edited by Skip Jaffe MD On 01/22/23 5:18:46 AM at 0520 PATIENT NAME: MATHEW CASTILLO [facility] 2023-01-08 17:58:00 [facility]) Urology Progress Note REPORT#:[id number] REPORT STATUS: Signed REPORT INITIALIZATION DATE:01/08/23 TIME: 1757 PATIENT: MATHEW CASTILLO UNIT #: [id number] ROOM/BED: [address] : [birth year] AGE: 62 SEX: M ATTEND: Salinas Alba MD ADM AUTHOR: Dave Jones MD REPT SERVICE DT/TIME: 01/08/231757 * ALL edits or amendments must be [...] in situ Results Findings/Data: Laboratory Tests: 01/08 0325 Chemistry Sodium (134 - [...] % (Auto) (14.0 - 32.0 %) 22.3 [place] % (Auto) (4.8 - 9.0 %) 6.9 Eos % (Auto) (0.3 - 3.7 %) 9.9 H Baso % (Auto) (0.0 - 2.0 %) 0.9 Neut # (Auto) (2.0 - 7.6 x10 3/uL) 3.89 Lymph # (Auto) (1.0 - 3.8 x10 3/uL) 1.46 [place] # (Auto) (0.1 - 0.8 x10 3/uL) [...] discharge with black tomorrow at 1759 RPT #:[id number] END OF REPORT [facility] 2023-01-08 02:42:00 [facility] ([facility]) Infectious Dis. Progress Note REPORT#:[id number] REPORT STATUS: Signed REPORT INITIALIZATION DATE:01/08/23 TIME: 024 PATIENT: MATHEW CASTILLO UNIT #: [id number] ROOM/BED: [place] [address] : 59 AGE: 62 SEX: M ATTEND: [...] patient on IV Zosyn. at 0353 RPT #:[id number] END OF REPORT [facility] 2023-01-07 21:05:00 [facility] Internal Medicine Prog. Note REPORT#:[id number] REPORT STATUS: Signed REPORT INITIALIZATION DATE:01/07/23 TIME: 2104 PATIENT: MATHEW CASTILLO UNIT #: [id number] ROOM/BED: [place] [address] : 59 AGE: 62 SEX: M ATTEND: Salinas Alba MD ADM AUTHOR: Sofia Cheng NP REPT SERVICE DT/TIME: 01/07/232104 * ALL edits or amendments must be made on the electronic/computer document * Subjective Chief complaint: Hematuria HPI: 62-year-old male with last medical history of, BPH, s/p bladder lift yesterday by Dr. Jones transferred from [place] for urology evaluation secondary to hematuria after bladder irrigation failed. pt was seen and evaluated by Dr. 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 Last admitted to [facility] on 10/16/22 with urinary retention. Abnormal [...] Sodium Chloride (SODIUM CHLORIDE 0.9%) 1,000 ML .[id number] IV Sodium Chloride (SODIUM CHLORIDE 0.9%) 1,000 [...] % (Auto) (14.0 - 32.0 %) 21.2 [place] % (Auto) (4.8 - 9.0 %) 7.2 Eos % (Auto) (0.3 - 3.7 %) 10.4 H Baso % (Auto) (0.0 - 2.0 %) 0.8 Neut # (Auto) (2.0 - 7.6 x10 3/uL) 3.56 Lymph # (Auto) (1.0 - 3.8 x10 3/uL) 1.26 [place] # (Auto) (0.1 - 0.8 x10 3/uL) [...] of motion, normal sensory, normal motor function Neuro/NEWSCAST DIRECTOR: 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 Jones transferred from [place] for urology evaluation secondary to hematuria after bladder irrigation failed. pt was seen and evaluated by Dr. 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 Last admitted to [facility] on 10/16/22 with urinary retention. Abnormal [...] present care at 2222 at 0742 RPT #:[id number] END OF REPORT [facility] 2023-01-07 16:17:00 [facility] ([facility]) Urology Progress Note REPORT#:[id number] REPORT STATUS: Signed REPORT INITIALIZATION DATE:01/07/23 TIME: 1616 PATIENT: MATHEW CASTILLO UNIT #: [id number] ROOM/BED: [place] [address] : 59 AGE: 62 SEX: M ATTEND: Salinas Alba MD ADM AUTHOR: Dave Jones MD REPT SERVICE DT/TIME: 01/07/231616 * ALL edits or amendments must be made on the electronic/computer document * Subjective HPI: Mathew Castillo is a 62 yo M history of hypertension, schizophrenia, BPH urinary retention who follows with Dr. Jones and is status post UroLift 2022. Patient [...] - discharge with black tomorrow at 1617 [facility] #:[id number] END OF REPORT [facility] 2023-01-07 05:20:00 [id number] [place], [place] [address] PATIENT NAME: MATHEW CASTILLO ADMIT DATE: 01/06/23 ACCOUNT NO: [id number] ROOM NO: [facility] AGE: 62 REPORT TYPE: PROGRESS NOTE [...] Dictated: 01/07/2023 05:20:31 Date Transcribed: 01/07/2023 05:56:47 ESTRADA/JORGE Receipt ID: [id number] Authenticated and Edited by Skip Jaffe MD On 01/22/23 5:18:20 AM at 0520 PATIENT NAME: MATHEW CASTILLO [facility] 2023-01-06 21:39:00 [facility] Internal Medicine Prog. Note REPORT#:[id number] REPORT STATUS: Signed REPORT INITIALIZATION DATE:01/06/23 TIME: 2138 PATIENT: MATHEW ACSTILLO UNIT #: [id number] ROOM/BED: [place] [address] : 59 AGE: 62 SEX: M ATTEND: Salinas Alba MD ADM AUTHOR: Sofia Cheng SECOND OPERATOR REPT SERVICE DT/TIME: 01/06/232138 * ALL edits or amendments must be made on the electronic/computer document * Subjective Chief complaint: Hematuria HPI: 62-year-old male with last medical history of, BPH, s/p bladder lift yesterday by Dr. Jones transferred from [place] for urology evaluation secondary to hematuria after bladder irrigation failed. pt was seen and evaluated by Dr. 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 Last admitted to [facility] on 10/16/22 with urinary retention. Abnormal [...] Sodium Chloride (SODIUM CHLORIDE 0.9%) 1,000 ML .[id number] IV Sodium Chloride (SODIUM CHLORIDE 0.9%) 1,000 [...] (Auto) (14.0 - 32.0 %) 11.8 L [place] % (Auto) (4.8 - 9.0 %) 7.5 Eos % (Auto) (0.3 - 3.7 %) 3.2 Baso % (Auto) (0.0 - 2.0 %) 0.4 Neut # (Auto) (2.0 - 7.6 x10 3/uL) 7.43 Lymph # (Auto) (1.0 - 3.8 x10 3/uL) 1.14 [place] # (Auto) (0.1 - 0.8 x10 3/uL) [...] of motion, normal sensory, normal motor function Neuro/NEWSCAST DIRECTOR: 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 Jones transferred from [place] for urology evaluation secondary to hematuria after bladder irrigation failed. pt was seen and evaluated by Dr. 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 Last admitted to [facility] on 10/16/22 with urinary retention. Abnormal [...] supportive care at 0015 at 0740 RPT #:[id number] END OF REPORT [facility] 2023-01-06 19:39:00 [facility] ([facility]) Urology Progress Note REPORT#:[id number] REPORT STATUS: Signed REPORT INITIALIZATION DATE:01/06/23 TIME: 1938 PATIENT: MATHEW CASTILLO UNIT #: [id number] ROOM/BED: [place] [address] : 59 AGE: 62 SEX: M ATTEND: Salinas Alba MD ADM AUTHOR: Dave Jones MD REPT SERVICE DT/TIME: 01/06/231938 * ALL edits or amendments must be made on the electronic/computer document * Subjective HPI: Mathew Castillo is a 62 yo M history of hypertension, schizophrenia, BPH urinary retention who follows with Dr. Jones and is status post UroLift 2022. Patient reports persistent worsening gross hematuria since the procedure. Feels otherwise well had a fever Tmax 100.8 otherwise normotensive. He is currently receiving Zosyn. Currently has three-way catheter in place that is draining a mix of clear urine mixed with old bloody urine. Objective General VS/I O: Last Documented: Result Date Time Pulse Ox 97 01/06 154 B/P 100/66 01/06 1540 B/P Mean 77.5 01/07 1540 O2 [...] irrig. run. Results Findings/Data: Laboratory Tests: 01/06 517 Chemistry Sodium (134 - [...] (Auto) (14.0 - 32.0 %) 11.8 L [place] % (Auto) (4.8 - 9.0 %) 7.5 Eos % (Auto) (0.3 - 3.7 %) 3.2 Baso % (Auto) (0.0 - 2.0 %) 0.4 Neut # (Auto) (2.0 - 7.6 x10 3/uL) 7.43 Lymph # (Auto) (1.0 - 3.8 x10 3/uL) 1.14 [place] # (Auto) (0.1 - 0.8 x10 3/uL) [...] wean cbi as tolerated at 1941 RPT #:[id number] END OF REPORT [facility] 2023-01-06 19:19:00 [facility] ([facility]) Infectious Dis. Progress Note REPORT#:[id number] REPORT STATUS: Signed REPORT INITIALIZATION DATE:01/06/23 TIME: 1918 PATIENT: MATHEW CASTILLO UNIT #: [id number] ROOM/BED: [place] [address] : 59 AGE: 62 SEX: M ATTEND: [...] possibility. [place] [id number] colony-forming units of the Gram- negative rods. Identification and susceptibility is pending. Keep the patient on IV Zosyn. at 0411 RPT #:[id number] END OF REPORT [facility] 2023-01-06 17:40:00 [id number] [place] [address] PATIENT NAME: MATHEW CASTILLO ADMIT DATE: 01/06/23 ACCOUNT NO: [id number] ROOM NO: G.C146 AGE: 62 REPORT TYPE: CONSULTATION REPORT SEX: M ADMITTING PHYSICIAN:Salinas Alba MD ATTENDING PHYSICIAN:Salinas Alba MD CONSULTATION DATE: 01/05/2023 INFECTIOUS DISEASE CONSULTATION The patient examined, chart reviewed, old records reviewed. Thank you, Dr. Michael, for asking me to evaluate Mr. Mathew Castillo. HISTORY OF PRESENT ILLNESS: Mr. Castillo is known to me from his recent hospitalization at [facility] in 10/2022. He is a 62-year-old male with a past medical history of schizophrenia, benign prostatic hypertrophy with recurrent urinary symptomatology, history of previous episode of urinary retention due to bladder neck obstruction requiring indwelling Black catheter placement and hospitalization in October of 2022. The patient lives in [place] and he had an outpatient prostate procedure done by Dr. Dave Jones with UroLift on Friday01/03/2023 and was discharged home on the same day. The patient went back to [place]. However, subsequently, he started to notice ladan hematuria on Friday and had no other constitutional symptoms including fever or chills. The patient because of worsening hematuria decided to go to the hospital. He went to hospital in [place] and he was told to follow up with the urologist and he was transferred to the [facility]. The patient at present is hemodynamically [...] single. He lives with his daughter in [place]. The patient has been a longtime smoker and continues to smoke. No history of IV drug use, alcohol use, or substance abuse. 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 [place] admission, [place] [address]. The patient had 2 blood cultures done. [...] was seen at a hospital in [facility] and is transferred to [facility] for further Urology evaluation. 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 silk trimmer today, and he is empirically started on [...] Date Transcribed: 01/06/2023 21:28:36 DORADO/GLORIA Receipt ID: [id number] Authenticated by Skip Jaffe MD On 01/22/2023 05:17:37 AM at 0517 PATIENT NAME: MATHEW CASTILLO [facility] 2023-01-05 23:00:00 [facility] Infect Disease Consult Note REPORT#:[id number] REPORT STATUS: Signed REPORT INITIALIZATION DATE:01/05/23 TIME: 2299 PATIENT: MATHEW CASTILLO UNIT #: [id number] ROOM/BED: [place] [address] : 59 AGE: 62 SEX: M ATTEND: Salinas Alba MD ADM AUTHOR: Skip Jaffe MD REPT SERVICE DT/TIME: 01/05/23 2300 * ALL edits or amendments must be made on the electronic/computer document * History of Present Illness HPI: Thank you for the consultation. Patient's current and old record reviewed. Orders initiated. See full dictated consultation report for further details. Patient is known to our service from his recent hospitalization at [facility] in October of 2022. ASSESSMENT AND [...] No Known Allergies (10/16/22) at 0526 RPT #:[id number] END OF REPORT [facility] 2023-01-05 13:05:00 [facility] ([facility]) Urology Consult Note REPORT#:[id number] REPORT STATUS: Signed REPORT INITIALIZATION DATE:01/05/23 TIME: 1305 PATIENT: MATHEW CASTILLO UNIT #: [id number] ROOM/BED: [place] [address] : 59 AGE: 62 SEX: M ATTEND: [...] Dr. Jones and is status post UroLift 2022. Patient [...] (Auto) (14.0 - 32.0 %) 4.5 L [place] % (Auto) (4.8 - 9.0 %) 6.1 Eos % (Auto) (0.3 - 3.7 %) 0.3 Baso % (Auto) (0.0 - 2.0 %) 0.2 Neut # (Auto) (2.0 - 7.6 x10 3/uL) 15.99 H Lymph # (Auto) (1.0 - 3.8 x10 3/uL) 0.82 L [place] # (Auto) (0.1 - 0.8 x10 3/uL) [...] (Auto) (14.0 - 32.0 %) 5.4 L [place] % (Auto) (4.8 - 9.0 %) 5.3 Eos % (Auto) (0.3 - 3.7 %) 0.0 L Baso % (Auto) (0.0 - 2.0 %) 0.2 Neut # (Auto) (2.0 - 7.6 x10 3/uL) 14.77 H Lymph # (Auto) (1.0 - 3.8 x10 3/uL) 0.90 L [place] # (Auto) (0.1 - 0.8 x10 3/uL) [...] pH (5.0 - 7.0) 7.0 Ur Specific [place] (1.005 - 1.030) 1.005 Urine Protein (NEGATIVE) [...] [facility] at 1312 RPT #:[id number] END OF REPORT [facility] 2023-01-05 11:34:00 [facility] ([facility]) History Physical - Adult REPORT#:[id number] REPORT STATUS: Signed REPORT INITIALIZATION DATE:01/05/23 TIME: 1133 PATIENT: MATHEW CASTILLO UNIT #: [id number] ROOM/BED: [place] [address] : 59 AGE: 62 SEX: M ATTEND: Salinas Alba MD ADM AUTHOR: Sofia Cheng SECOND OPERATOR REPT SERVICE DT/TIME: 01/05/23 1134 * ALL edits or amendments must be made on the electronic/computer document * History of Present Illness HPI Chief complaint: Hematuria HPI: 62-year-old male with last medical history of, BPH, s/p bladder lift yesterday by Dr. Jones transferred from [place] for urology evaluation secondary to hematuria after bladder irrigation failed. pt was seen and evaluated by Dr. 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 Last admitted to [facility] on 10/16/22 with urinary retention. Abnormal [...] of motion, normal sensory, normal motor function Neuro/NEWSCAST DIRECTOR: alert, oriented X 3 Skin: dry, intact, [...] (Auto) (14.0 - 32.0 %) 4.5 L [place] % (Auto) (4.8 - 9.0 %) 6.1 Eos % (Auto) (0.3 - 3.7 %) 0.3 Baso % (Auto) (0.0 - 2.0 %) 0.2 Neut # (Auto) (2.0 - 7.6 x10 3/uL) 15.99 H Lymph # (Auto) (1.0 - 3.8 x10 3/uL) 0.82 L [place] # (Auto) (0.1 - 0.8 x10 3/uL) [...] (Auto) (14.0 - 32.0 %) 5.4 L [place] % (Auto) (4.8 - 9.0 %) 5.3 Eos % (Auto) (0.3 - 3.7 %) 0.0 L Baso % (Auto) (0.0 - 2.0 %) 0.2 Neut # (Auto) (2.0 - 7.6 x10 3/uL) 14.77 H Lymph # (Auto) (1.0 - 3.8 x10 3/uL) 0.90 L [place] # (Auto) (0.1 - 0.8 x10 3/uL) [...] pH (5.0 - 7.0) 7.0 Ur Specific [place] (1.005 - 1.030) 1.005 Urine Protein (NEGATIVE) [...] CAT SCAN - CT ABD PELVIS W/CONT 01/04 6040 Report Impression - Status: SIGNED Entered: 01/04/2023 6767 IMPRESSION: 1. Prostatomegaly. Decompressed bladder with a Black in place. 2. No hydronephrosis. No enhancing renal masses. 3. Cholelithiasis and mildly distended gallbladder. 4. Moderate hiatal hernia. Impression By: Nick Magaña M.D. Diagnosis, Assessment Plan Free Text DxA P Notes Free Text DxA P Notes: Assessment: 62-year-old male with last medical history of, BPH, s/p bladder lift yesterday by Dr. Jones transferred from [place] for urology evaluation secondary to hematuria after bladder irrigation failed. pt was seen and evaluated by Dr. 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 Last admitted to [facility] on 10/16/22 with urinary retention. Abnormal [...] clinical course at 0055 at 0739 RPT #:[id number] END OF REPORT [facility] 2023-01-05 01:59:00 [facility] ([facility]) Clinical Note REPORT#:[id number] REPORT STATUS: Signed REPORT INITIALIZATION DATE:01/05/23 TIME: 158 PATIENT: MATHEW CASTILLO UNIT #: [id number] ROOM/BED: [place] [address] : 59 AGE: 62 SEX: M ATTEND: Salinas Alba MD ADM AUTHOR: Sofia Cheng NP REPT SERVICE DT/TIME: 01/05/23158 * ALL edits or amendments must be made on the electronic/computer document * Clinical Note Note: Clinical data reviewed Orders placed at 0222 RPT #:[id number] END OF REPORT [facility] 2023-01-04 20:02:00 [facility] ([facility]) EMERGENCY PROVIDER REPORT REPORT#:[id number] REPORT STATUS: Signed DATE:01/04/23 TIME: 2001 PATIENT: MATHEW CASTILLO UNIT #: [id number] [facility] AGE: 62 SEX: M PCP PHYS: Lakhwinder Vasquez MD SERVICE AUTHOR: Vee Horton * ALL edits or amendments must be [...] Per daughter at bedside patient evaluated at [place] ED ONLINE USER EXPERIENCE STRATEGIST, bladder irrigation attempted without resolution of hematuria. [...] 01/04 1926 Pulse 102 01/04 1926 Resp 01/04 Last Documented: Result Date Time Pulse Ox [...] Not Available] Laboratory Tests: 01/04 01/04 01/04 8345 [id number] 2000 Chemistry Sodium (134 - 147 mEq/L) [...] (Auto) (14.0 - 32.0 %) 5.4 L [place] % (Auto) (4.8 - 9.0 %) 5.3 Eos % (Auto) (0.3 - 3.7 %) 0.0 L Baso % (Auto) (0.0 - 2.0 %) 0.2 Neut # (Auto) (2.0 - 7.6 x10 3/uL) 14.77 H Lymph # (Auto) (1.0 - 3.8 x10 3/uL) 0.90 L [place] # (Auto) (0.1 - 0.8 x10 3/uL) [...] pH (5.0 - 7.0) 7.0 Ur Specific [place] (1.005 - 1.030) 1.005 Urine Protein (NEGATIVE) [...] indwelling black cath s/p urolift 1 day ONLINE USER EXPERIENCE STRATEGIST presents to ED 2/2 gross hematuria. Tachycardic [...] 01/04 192 O2 Delivery Room air 01/04 1926 Temp [...] Saw Pt Alone I have reviewed the PA/SECOND OPERATOR's note and plan of care. I was available for consultation as needed at all times during the patient's visit in the emergency department. I agree with the clinical impression, plan and disposition. at 2148 at 0552 RPT #:[id number] END OF REPORT [facility] 2022-11-19 18:14:00 [facility] ([facility]) Discharge Summary REPORT#:[id number] REPORT STATUS: Signed DATE:11/19/22 TIME: 1813 PATIENT: MATHEW CASTILLO UNIT #: [id number] ROOM/BED: [place] [address] : 58 AGE: 62 SEX: M ATTEND: [...] last medical history of, BPH, transferred from [place] for urology evaluation and treatment secondary to [...] of motion, normal sensory, normal motor function Neuro/NEWSCAST DIRECTOR: alert, oriented X 3 Skin: dry, intact, [...] Discharge Instructions Additional Discharge Routines: PCP Follow-Up, Line Up Examiner Follow-Up )( Diet: Regular Follow-up Appointments PCP follow up: PCP: Yumiko Geller MD PCP follow up timeframe: In 5 days Special instructions: CAN FU WITH OWN PCP Attending Physician: Attending Physician: Salinas Alba MD Attending physician follow up timeframe: In 1-2 weeks Special instructions: CALL TO SCHEDULE AN APPOINTMENT Consulting provider 1: Provider 1: Dave Jones MD Specialty: Urology Special instructions: FOR REMOVAL OF BLACK at 1132 [facility] #:[id number] END OF REPORT [facility] 2022-10-26 20:52:00 [id number] [address] PATIENT NAME: MATHEW CASTILLO ADMIT DATE: 10/16/22 ACCOUNT NO: [id number] [place] [facility] AGE: 62 REPORT TYPE: PROGRESS NOTE SEX: [...] Emergency Room where he was transferred from [place] with acute urinary retention. He had 3 [...] Date Transcribed: 10/26/2022 21:14:58 ESTRADA/JORGE/CORETTA Receipt ID: [id number] Authenticated and Edited by Skip Jaffe MD On 11/02/22 2:24:00 AM at 0323 PATIENT NAME: MATHEW CASTILLO [facility] 2022-10-26 19:14:00 [facility] Internal Medicine Prog. Note REPORT#:[id number] REPORT STATUS: Signed DATE:10/26/22 TIME: 1913 PATIENT: MATHEW CASTILLO UNIT #: [id number] ROOM/BED: [place] [address] : 59 AGE: 62 SEX: M ATTEND: Salinas Alba MD ADM AUTHOR: Sofia Cheng SECOND OPERATOR * ALL edits or amendments must be made on the electronic/computer document * Subjective Chief complaint: Abdominal distention, hydronephrosis HPI: 62-year-old male with last medical history of, BPH, transferred from [place] for urology evaluation and treatment secondary to [...] Resp B/P B/P Mean Pulse Ox FiO2 /-/ 36.8-37.2 69-95 15-19 104-125/64-79 77.4-94.2 95-98 Last [...] of motion, normal sensory, normal motor function Neuro/NEWSCAST DIRECTOR: 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 Rupture of ureter Free Text DxA P Notes Free text DxA P notes: Assessment: 62-year-old male with last medical history of, BPH, transferred from [place] for urology evaluation and treatment secondary to [...] supportive care at 2225 at 0830 RPT #:[id number] END OF REPORT [facility] 2022-10-26 13:41:00 [facility] ([facility] Nephrology Progress Note REPORT#:[id number] REPORT STATUS: Signed DATE:10/26/22 TIME: 1341 PATIENT: MATHEW CASTILLO UNIT #: [id number] ROOM/BED: [place] [address] : 59 AGE: 62 SEX: M ATTEND: Salinas Alba MD ADM AUTHOR: Carmen Kemp * ALL edits or amendments must be made on the electronic/computer document * Carmen Kemp 10/26/22 1341: Subjective [...] urine in his bladder. CT abdomen from [place] showed that the patient has a very [...] urine in his bladder. CT abdomen from [place] showed that the patient has a very [...] nurse and Dr. Koehler. Toby Koehler 10/26/22 181: Attestations Physician Attestation Reviewed findings plan: Patient examined Renal function improved and wnl, black to gravity, -2/2 post-obstrucitve uropathy, replace electrolytes as needed, S/P antibiotics continue flomax, Agree with above A/P at 1342 at 1813 RPT #:[id number] END OF REPORT [facility] 2022-10-25 21:28:00 [facility] ([facility]) Infectious Dis. Progress Note REPORT#:[id number] REPORT STATUS: Signed DATE:10/25/22 TIME: 2127 PATIENT: MATHEW CASTILLO UNIT #: [id number] ROOM/BED: 6630-1 : 59 AGE: 62 SEX: [...] new nosocomial acquired infection. at 0256 RPT #:[id number] END OF REPORT [facility] 2022-10-25 19:13:00 [facility] ([facility]) Nephrology Progress Note REPORT#:[id number] REPORT STATUS: Signed DATE:10/25/22 TIME: 1912 PATIENT: MATHEW CASTILLO UNIT #: [id number] ROOM/BED: 6630-1 : 59 AGE: 62 SEX: [...] 10/25 10/25 10/25 10/25 10/24 1634 1046 [id number] 1951 Chemistry Sodium (134 - 147 mEq/L) [...] (Auto) (14.0 - 32.0 %) 10.6 L [place] % (Auto) (4.8 - 9.0 %) 4.4 L Eos % (Auto) (0.3 - 3.7 %) 2.4 Baso % (Auto) (0.0 - 2.0 %) 0.5 Neut # (Auto) (2.0 - 7.6 x10 3/uL) 12.30 H Lymph # (Auto) (1.0 - 3.8 x10 3/uL) 1.60 [place] # (Auto) (0.1 - 0.8 x10 3/uL) [...] urine in his bladder. CT abdomen from [place] showed that the patient has a very [...] urine in his bladder. CT abdomen from [place] showed that the patient has a very [...] abx per primary team. at 1914 RPT #:[id number] END OF REPORT [facility] 2022-10-25 19:12:00 [facility] Internal Medicine Prog. Note REPORT#:[id number] REPORT STATUS: Signed DATE:10/25/22 TIME: 1911 PATIENT: MATHEW CASTILLO UNIT #: [id number] ROOM/BED: [place] [address] : 59 AGE: 62 SEX: M ATTEND: Salinas Alba MD ADM AUTHOR: Sofia Cheng NP * ALL edits or amendments must be made on the electronic/computer document * Subjective Chief complaint: Abdominal distention, hydronephrosis HPI: 62-year-old male with last medical history of, BPH, transferred from [place] for urology evaluation and treatment secondary to [...] (Auto) (14.0 - 32.0 %) 10.6 L [place] % (Auto) (4.8 - 9.0 %) 4.4 L Eos % (Auto) (0.3 - 3.7 %) 2.4 Baso % (Auto) (0.0 - 2.0 %) 0.5 Neut # (Auto) (2.0 - 7.6 x10 3/uL) 12.30 H Lymph # (Auto) (1.0 - 3.8 x10 3/uL) 1.60 [place] # (Auto) (0.1 - 0.8 x10 3/uL) [...] of motion, normal sensory, normal motor function Neuro/NEWSCAST DIRECTOR: 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 Rupture of ureter Free Text DxA P Notes Free text DxA P notes: Assessment: 62-year-old male with last medical history of, BPH, transferred from [place] for urology evaluation and treatment secondary to [...] supportive care at 2224 at 0830 RPT #:[id number] END OF REPORT [facility] 2022-10-25 10:44:00 [id number] [address] PATIENT NAME: MATHEW CASTILLO ADMIT DATE: 10/16/22 ACCOUNT NO: [id number] ROOM NO: [facility] AGE: 62 REPORT TYPE: PROGRESS NOTE SEX: [...] through Emergency Room initially to hospital in [place] with urinary retention of 2 days' duration and was found to have some extravasation of urine in the peritoneal cavity. The patient was treated with IV antibiotics and had a Black catheter inserted and about 3 liters of urine was drained and the Black was left in place and he was transferred to [facility] for urology evaluation. The patient was [...] Dictated: 10/25/2022 10:44:58 Date Transcribed: 10/25/2022 11:24:45 DORADO/JENNI Receipt ID: [id number] Authenticated and Edited by Skip Jaffe MD On 11/02/22 2:23:50 AM at 0323 PATIENT NAME: MATHEW CASTILLO [facility] 2022-10-24 22:59:00 [facility] Internal Medicine Prog. Note REPORT#:[id number] REPORT STATUS: Signed DATE:10/24/22 TIME: 2258 PATIENT: MATHEW CASTILLO UNIT #: [id number] ROOM/BED: [place] [address] : 59 AGE: 62 SEX: M ATTEND: Salinas Alba MD ADM AUTHOR: Sofia Cheng SECOND OPERATOR * ALL edits or amendments must be made on the electronic/computer document * Subjective Chief complaint: Abdominal distention, hydronephrosis HPI: 62-year-old male with last medical history of, BPH, transferred from [place] for urology evaluation and treatment secondary to [...] MG Q4H PRN PRN 10/16 1345 AC 0716 (TYLENOL) PO 11/15 1344 0120 Haloperidol 10 [...] of motion, normal sensory, normal motor function Neuro/NEWSCAST DIRECTOR: 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 Rupture of ureter Free Text DxA P Notes Free text DxA P notes: Assessment: 62-year-old male with last medical history of, BPH, transferred from [place] for urology evaluation and treatment secondary to [...] present care at 2223 at 0830 RPT #:[id number] END OF REPORT [facility] 2022-10-24 19:41:00 [facility] ([facility]) Infectious Dis. Progress Note REPORT#:[id number] REPORT STATUS: Signed DATE:10/24/22 TIME: 1940 PATIENT: MATHEW CASTILLO UNIT #: [id number] [address] AGE: 62 SEX: M ATTEND: Salinas [...] patient closely for any diarrhea. at 0316 [facility] #:[id number] END OF REPORT [facility] 2022-10-24 19:12:00 [phone] [address] PATIENT NAME: MATHEW CASTILLO ADMIT DATE: 10/16/22 ACCOUNT NO: [id number] ROOM NO: G.6630 AGE: 62 REPORT TYPE: PROGRESS NOTE SEX: M ADMITTING PHYSICIAN:Salinas lAba MD ATTENDING PHYSICIAN:Salinas Alba MD DATE: 10/23/2022 [...] problems was initially admitted to hospital in [place] where he had presented with urinary retention. The patient was found to have 3 liters of urine in the bladder. He had a Black catheter inserted and subsequently was transferred to [facility] for urology evaluation. He was initially [...] Dictated: 10/24/2022 19:12:07 Date Transcribed: 10/24/2022 19:51:44 ESTRADA/GLORIA Receipt ID: [id number] Authenticated and Edited by Skip Jaffe MD On 11/02/22 2:23:34 AM at 0323 PATIENT NAME: MATHEW CASTILLO [facility] 2022-10-24 16:08:00 [facility] ([facility]) Nephrology Progress Note REPORT#:[id number] REPORT STATUS: Signed DATE:10/24/22 TIME: 1607 PATIENT: MATHEW CASTILLO UNIT #: [id number] ROOM/BED: [place] [address] : 59 AGE: 62 SEX: M ATTEND: [...] urine in his bladder. CT abdomen from [place] showed that the patient has a very [...] urine in his bladder. CT abdomen from [place] showed that the patient has a very [...] agree with above A/P at 1740 at 6 RPT #:[id number] END OF REPORT [facility] 2022-10-23 21:33:00 [facility] Internal Medicine Prog. Note REPORT#:[id number] REPORT STATUS: Signed DATE:10/23/22 TIME: 2132 PATIENT: MATHEW CASTILLO UNIT #: [id number] ROOM/BED: 6630-1 : 59 AGE: 62 SEX: M ATTEND: Salinas Alba MD ADM AUTHOR: Sofia Cheng NP * ALL edits or amendments must be made on the electronic/computer document * Subjective Chief complaint: Abdominal distention, hydronephrosis HPI: 62-year-old male with last medical history of, BPH, transferred from [place] for urology evaluation and treatment secondary to [...] NORMAL Chemistry: 10/23 10/23 10/23 10/23 10/23 1956 1622 1133 0825 0623 Chemistry Sodium (134 [...] Documented: Result Date Time Pulse Ox 97 10/230 B/P 108/67 10/23 1899 B/P Mean 80.5 10/23 1899 O2 Delivery Room air 10/23 1899 Temp 37.1 10/23 190 Pulse 69 10/23 1900 Resp 16 10/23 [...] of motion, normal sensory, normal motor function Neuro/NEWSCAST DIRECTOR: 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 Rupture of ureter Free Text DxA P Notes Free text DxA P notes: Assessment: 62-year-old male with last medical history of, BPH, transferred from [place] for urology evaluation and treatment secondary to [...] Fall precaution at 0250 at 0842 RPT #:[id number] END OF REPORT [facility] 2022-10-23 18:51:00 [facility] ([facility]) Infectious Dis. Progress Note REPORT#:[id number] REPORT STATUS: Signed DATE:10/23/22 TIME: 1850 PATIENT: MATHEW CASTILLO UNIT #: [id number] [place]BED: [facility] : 59 AGE: 62 SEX: M ATTEND: [...] closely for any diarrhea. at 0256 RPT #:[id number] END OF REPORT [facility] 2022-10-23 18:27:00 [id number] [place] [address] PATIENT NAME: MATHEW CASTILLO ADMIT DATE: 10/16/22 ACCOUNT NO: [id number] ROOM NO: G.6630 AGE: 62 REPORT TYPE: [...] Emergency Room where he was transferred from [facility] because of urinary retention. The patient presented to [facility] with 2 days' history of not able to pass any urine and he was found to have 3 liters urine in his bladder with some extravasation of urine into the peritoneal cavity. The patient had a Blakc catheter placed and bladder was relieved. He was transferred to [facility] for evaluation by Urology Service. The patient was kept on IV ceftriaxone. Initially, he showed improvement in his condition; however, he had a temperature of up to 37.8 degrees Celsius silk trimmer on 10/20/2022, and at that time, he [...] Date Transcribed: 10/23/2022 18:54:06 DORADO/GLORIA Receipt ID: [id number] Authenticated and Edited by Skip Jaffe MD On 11/02/22 2:23:13 AM at 0225 PATIENT NAME: MATHEW CASTILLO [facility] 2022-10-23 13:24:00 [facility] Nephrology Progress Note REPORT#:[id number] REPORT STATUS: Signed DATE:10/23/22 TIME: 1323 PATIENT: MATHEW CASTILLO UNIT #: [id number] ROOM/BED: 6630-1 : 59 AGE: 62 SEX: [...] urine in his bladder. CT abdomen from [place] showed that the patient has a very [...] urine in his bladder. CT abdomen from [place] showed that the patient has a very [...] patient's nurse, and . Toby Koehler 10/23/22 2549: Attestations Physician Attestation Reviewed findings plan: Patient examined Renal function improved and wnl, black to gravity, -2/2 post-obstrucitve uropathy, replace electrolytes as needed, emperic antibiotics per admitting team, agree with above A/P at 1741 at 2253 RPT #:[id number] END OF REPORT [facility] 2022-10-22 18:32:00 [facility] ([facility]) Infectious Dis. Progress Note REPORT#:[id number] REPORT STATUS: Signed DATE:10/22/22 TIME: 1831 PATIENT: MATHEW CASTILLO UNIT #: [id number] ROOM/BED: [place] [address] : 59 AGE: 62 SEX: M ATTEND: [...] low-grade temperature of the 37.6 degree C silk trimmer today. Remains afebrile at the present time. [...] IV antibiotics for now. at 0219 RPT #:[id number] END OF REPORT [facility] 2022-10-22 18:20:00 [id number] [place], [place] [address] PATIENT NAME: MATHEW CASTILLO ADMIT DATE: 10/16/22 ACCOUNT NO: [id number] ROOM NO: G.6630 AGE: 62 REPORT TYPE: [...] was initially admitted through emergency room at [facility] with acute urinary retention. The patient has [...] for urology evaluation, he was transferred to [facility]. The patient was continued on IV ceftriaxone and had been doing fairly well until silk trimmer yesterday when he started to have fever [...] [facility] Receipt ID: [id number] Authenticated and Edited by Skip Jaffe MD On 11/02/22 2:22:51 AM at 0323 PATIENT NAME: MATHEW CASTILLO [facility] 2022-10-22 18:15:00 [facility] Internal Medicine Prog. Note REPORT#:[id number] REPORT STATUS: Signed DATE:10/22/22 TIME: 1814 PATIENT: MATHEW CASTILLO UNIT #: [id number] ROOM/BED: [place] [address] : 59 AGE: 62 SEX: M ATTEND: Salinas Alba MD ADM AUTHOR: Sofia Cheng NP * ALL edits or amendments must be made on the electronic/computer document * Subjective Chief complaint: Abdominal distention, hydronephrosis HPI: 62-year-old male with last medical history of, BPH, transferred from [place] for urology evaluation and treatment secondary to [...] Ox 97 10/22 1701 B/P 114/70 10/22 1701 B/P Mean 84.4 10/22 170 O2 Delivery Room air 10/22 1701 Temp 36.9 10/22 170 Pulse 72 10/22 170 Resp 14 10/22 1701 24 hour I O ending at 0700: [...] of motion, normal sensory, normal motor function Neuro/NEWSCAST DIRECTOR: 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 Rupture of ureter Free Text DxA P Notes Free text DxA P notes: Assessment: 62-year-old male with last medical history of, BPH, transferred from [place] for urology evaluation and treatment secondary to [...] and supportive care at 0314 at 0842 [facility] #:[id number] END OF REPORT [facility] 2022-10-22 09:31:00 [facility] ([facility]) Nephrology Progress Note REPORT#:[id number] REPORT STATUS: Signed DATE:10/22/22 TIME: 930 PATIENT: MATHEW CASTILLO UNIT #: [id number] ROOM/BED: [place] [address] : 59 AGE: 62 SEX: M ATTEND: [...] 10/22 10/22 10/22 10/21 1700 1119 0737 0604 2003 Chemistry Sodium (134 - 147 mEq/L) [...] urine in his bladder. CT abdomen from [place] showed that the patient has a very [...] urine in his bladder. CT abdomen from [place] showed that the patient has a very [...] patient's nurse, and . Toby Koehler 10/22/22 3079: Attestations Physician Attestation Reviewed findings plan: Patient examined Renal function improved and wnl, black to gravity, -2/2 post-obstrucitve uropathy, replace electrolytes as needed, agree with above A/P at 1842 at 2220 RPT #:[id number] END OF REPORT [facility] 2022-10-21 20:48:00 [facility] Internal Medicine Prog. Note REPORT#:[id number] REPORT STATUS: Signed DATE:10/21/22 TIME: 2047 PATIENT: MATHEW CASTILLO UNIT #: [id number] ROOM/BED: [place] [address] : 59 AGE: 62 SEX: M ATTEND: Salinas Alba MD ADM AUTHOR: Sofia Cheng NP * ALL edits or amendments must be made on the electronic/computer document * Subjective Chief complaint: Abdominal distention, hydronephrosis HPI: 62-year-old male with last medical history of, BPH, transferred from [place] for urology evaluation and treatment secondary to [...] Mean Pulse Ox FiO2 10/20-10/21 36.8-37.2 70-84 -17 112-125/66-77 81.4-91.8 94-98 Last Documented: Result Date [...] AC HS SUBQ Results Findings/Data: Laboratory Tests 10/21/226: [Embedded Image Not Available] Laboratory Tests 10/21 [...] sonographic evidence for DVT Impression By: KemABEric Ac M.D. Diagnosis, Assessment Plan Hospital course [...] of motion, normal sensory, normal motor function Neuro/NEWSCAST DIRECTOR: 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 Rupture of ureter Free Text DxA P Notes Free text DxA P notes: Assessment: 62-year-old male with last medical history of, BPH, transferred from [place] for urology evaluation and treatment secondary to [...] medications and present at 0104 at 1009 [facility] #:[id number] END OF REPORT [facility] 2022-10-21 19:01:00 [facility] ([facility]) Infectious Dis. Progress Note REPORT#:[id number] REPORT STATUS: Signed DATE:10/21/22 TIME: 190 PATIENT: MATHEW CASTILLO UNIT #: [id number] ROOM/BED: [place] [address] : 59 AGE: 62 SEX: M ATTEND: [...] Discussed with Skylar MENDIOLA. at 0242 RPT #:[id number] END OF REPORT [facility] 2022-10-21 11:23:00 [facility] ([facility]) Nephrology Progress Note REPORT#:[id number] REPORT STATUS: Signed DATE:10/21/22 TIME: 112 PATIENT: MATHEW CASTILLO UNIT #: [id number] ROOM/BED: [place] [address] : 59 AGE: 62 SEX: M ATTEND: [...] data: Recent Impressions: ULTRASOUND - DUP VEIN ASEAL 10/21 0821 Report Impression - Status: SIGNED [...] urine in his bladder. CT abdomen from [place] showed that the patient has a very [...] urine in his bladder. CT abdomen from [place] showed that the patient has a very [...] agree with above A/P at 1640 at 5 RPT #:[id number] END OF REPORT [facility] 2022-10-21 03:59:00 [id number] [address] PATIENT NAME: MATHEW CASTILLO ADMIT DATE: 10/16/22 ACCOUNT NO: [id number] ROOM NO: G.6630 AGE: 62 REPORT TYPE: [...] who was initially admitted to hospital in [place] where he presented with acute urinary retention. [...] for urology evaluation, he was transferred to [facility] on 10/16/2022 for admission. On admission, [...] temperature of up to 37.8 degrees Celsius silk trimmer today and after that he had been only having low-grade fever. Denies any nausea, vomiting or diarrhea. Denies any chest pain, cough, expectoration, or shortness of breath. He continues to have a Black catheter in place and admits to having suprapubic area soreness and pain, however, states that the pain and soreness he had at the time of presentation to the [facility] has resolved. 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 IMPRESSION: The patient with multiple comorbidities including history of schizophrenia and benign prostatic hypertrophy with worsening urinary difficulties for last over 2 years, was admitted through emergency room where he was transferred from [facility] because of need for urology [...] to 37.8 degrees Celsius last night and silk trimmer and had developed marked leukocytosis. Clinically, he [...] Date Transcribed: 10/21/2022 04:40:04 DORADO/MAN Receipt ID: [id number] Authenticated by Skip Jaffe MD On 11/02/2022 02:22:37 AM at 0222 PATIENT NAME: MATHEW CASTILLO [facility] 2022-10-20 20:34:00 [facility] Nephrology Progress Note REPORT#:[id number] REPORT STATUS: Signed DATE:10/20/22 TIME: 2033 PATIENT: MATHEW CASTILLO UNIT #: [id number] ROOM/BED: 6630-1 : 59 AGE: 62 SEX: [...] - 32.0 %) 9.5 L 7.3 L [place] % (Auto) (4.8 - 9.0 %) 7.2 7.5 Eos % (Auto) (0.3 - 3.7 %) 2.6 2.2 Baso % (Auto) (0.0 - 2.0 %) 0.4 0.3 Neut # (Auto) (2.0 - 7.6 x10 3/uL) 13.75 H 15.38 H Lymph # (Auto) (1.0 - 3.8 x10 3/uL) 1.67 1.40 [place] # (Auto) (0.1 - 0.8 x10 3/uL) [...] urine in his bladder. CT abdomen from [place] showed that the patient has a very [...] urine in his bladder. CT abdomen from [place] showed that the patient has a very [...] Schizophrenia -Home medications resumed at 2150 RPT #:[id number] END OF REPORT [facility] 2022-10-20 18:11:00 [facility] Internal Medicine Prog. Note REPORT#:[id number] REPORT STATUS: Signed DATE:10/20/22 TIME: 1810 PATIENT: MATHEW CASTILLO UNIT #: [id number] ROOM/BED: [place] [address] : 59 AGE: 62 SEX: M ATTEND: Salinas Alba MD ADM AUTHOR: Sofia Cheng NP * ALL edits or amendments must be made on the electronic/computer document * Subjective Chief complaint: Abdominal distention, hydronephrosis HPI: 62-year-old male with last medical history of, BPH, transferred from [place] for urology evaluation and treatment secondary to [...] - 32.0 %) 9.5 L 7.3 L [place] % (Auto) (4.8 - 9.0 %) 7.2 7.5 Eos % (Auto) (0.3 - 3.7 %) 2.6 2.2 Baso % (Auto) (0.0 - 2.0 %) 0.4 0.3 Neut # (Auto) (2.0 - 7.6 x10 3/uL) 13.75 H 15.38 H Lymph # (Auto) (1.0 - 3.8 x10 3/uL) 1.67 1.40 [place] # (Auto) (0.1 - 0.8 x10 3/uL) [...] RADIOLOGY - XR CHEST 1 V 10/20 106 Report Impression - Status: SIGNED Entered: 10/20/20229 IMPRESSION: Mild interstitial pulmonary edema. No focal consolidation. Impression By: [email or web address] - Reinaldo Jacobs M.D. Diagnosis, Assessment Plan [...] of motion, normal sensory, normal motor function Neuro/NEWSCAST DIRECTOR: 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 Rupture of ureter Free Text DxA P Notes Free text DxA P notes: Assessment: 62-year-old male with last medical history of, BPH, transferred from [place] for urology evaluation and treatment secondary to [...] supportive care at 0141 at 1009 RPT #:[id number] END OF REPORT [facility] 2022-10-20 17:06:00 [facility] ([facility]) Infect Disease Consult Note REPORT#:[id number] REPORT STATUS: Signed DATE:10/20/22 TIME: 1706 PATIENT: MATHEW CASTILOL UNIT #: [id number] [address] AGE: 62 SEX: M ATTEND: Salinas [...] No Known Allergies (10/16/22) at 0239 RPT #:[id number] END OF REPORT [facility] 2022-10-20 01:07:00 [id number] [place] [address] PATIENT NAME: MATHEW CASTILLO ADMIT DATE: 10/16/22 ACCOUNT NO: [id number] ROOM NO: 6630 AGE: 62 REPORT TYPE: eELECTROCARDIOGRAM REPORT SEX: M ADMITTING PHYSICIAN:Salinas Alba MD ATTENDING PHYSICIAN:Salinas Alba MD Order: [id number] Test Reason : Sepsis Test Date/Time Stamp: [place] Oct 20 2022 01:07:09 Blood Pressure : / [...] MD at 1247 PATIENT NAME: MATHEW CASTILLO [facility] 2022-10-19 22:43:00 [facility] Internal Medicine Prog. Note REPORT#:[id number] REPORT STATUS: Signed DATE:10/19/22 TIME: 2242 PATIENT: MATHEW CASTILLO UNIT #: [id number] ROOM/BED: [place] [address] : 59 AGE: 62 SEX: M ATTEND: Salinas Alba MD ADM AUTHOR: Sofia Cheng NP * ALL edits or amendments must be made on the electronic/computer document * Subjective Chief complaint: Abdominal distention, hydronephrosis HPI: 62-year-old male with last medical history of, BPH, transferred from [place] for urology evaluation and treatment secondary to [...] Magnesium (1.80 - 2.40 mg/dL) 1.48 L 10/189 9899 0799 Chemistry POC Glucose (70 - 110 MG/DL) [...] Laboratory Tests 10/19 10/18 10/17 0347 0543 0767 Hematology WBC (4.5 - 11.0 x10 3/uL) [...] - 32.0 %) 15.7 15.6 10.6 L [place] % (Auto) (4.8 - 9.0 %) 8.5 10.1 H 12.8 H Eos % (Auto) (0.3 - 3.7 %) 6.0 H 7.5 H 2.7 Baso % (Auto) (0.0 - 2.0 %) 0.7 0.7 0.4 Neut # (Auto) (2.0 - 7.6 x10 3/uL) 6.09 5.53 8.23 H Lymph # (Auto) (1.0 - 3.8 x10 3/uL) 1.48 1.39 1.22 [place] # (Auto) (0.1 - 0.8 x10 3/uL) [...] 3/uL) 0.00 0.00 0.00 Laboratory Tests 10/19 2957 Urines Urine Color (YEL/STRAW) YELLOW Urine Appearance (CLEAR) SL CLOUDY Urine pH (5.0 - 7.0) 5.0 Ur Specific [place] (1.005 - 1.030) 1.015 Urine Protein (NEGATIVE) [...] - COMP NASAL Chemistry: 10/19 1615 1135 9546 4687 Chemistry Sodium (134 - 147 mEq/L) 139 [...] of motion, normal sensory, normal motor function Neuro/NEWSCAST DIRECTOR: 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 Rupture of ureter Free Text DxA P Notes Free text DxA P notes: Assessment: 62-year-old male with last medical history of, BPH, transferred from [place] for urology evaluation and treatment secondary to [...] Lback insertion large amount of urine was obtained [...] medications and present care at 0229 at 1511 [facility] #:[id number] END OF REPORT [facility] 2022-10-19 20:14:00 [facility] ([facility] Nephrology Progress Note REPORT#:[id number] REPORT STATUS: Signed DATE:10/19/22 TIME: 2013 PATIENT: MATHEW CASTILLO UNIT #: [id number] ROOM/BED: 6630-1 : 59 AGE: 62 SEX: [...] 10/19 10/19 10/19 10/18 1615 1135 0725 [id number] Chemistry Sodium (134 - 147 mEq/L) 139 [...] 2.40 mg/dL) 1.65 L Laboratory Tests 10/19 346 Hematology WBC (4.5 - 11.0 x10 3/uL) [...] % (Auto) (14.0 - 32.0 %) 15.7 [place] % (Auto) (4.8 - 9.0 %) 8.5 Eos % (Auto) (0.3 - 3.7 %) 6.0 H Baso % (Auto) (0.0 - 2.0 %) 0.7 Neut # (Auto) (2.0 - 7.6 x10 3/uL) 6.09 Lymph # (Auto) (1.0 - 3.8 x10 3/uL) 1.48 [place] # (Auto) (0.1 - 0.8 x10 3/uL) [...] pH (5.0 - 7.0) 5.0 Ur Specific [place] (1.005 - 1.030) 1.015 Urine Protein (NEGATIVE) [...] urine in his bladder. CT abdomen from [place] showed that the patient has a very [...] urine in his bladder. CT abdomen from [place] showed that the patient has a very [...] Schizophrenia -Home medications resumed at 2148 RPT #:[id number] END OF REPORT [facility] 2022-10-18 20:26:00 [facility] ([facility]) Internal Medicine Prog. Note REPORT#:[id number] REPORT STATUS: Signed DATE:10/18/22 TIME: 2025 PATIENT: MATHEW CASTILLO UNIT #: [id number] ROOM/BED: 6630-1 : 59 AGE: 62 SEX: M ATTEND: Salinas Alba MD ADM AUTHOR: Sofia Cheng NP * ALL edits or amendments must be made on the electronic/computer document * Subjective Chief complaint: Abdominal distention, hydronephrosis HPI: 62-year-old male with last medical history of, BPH, transferred from [place] for urology evaluation and treatment secondary to [...] % (Auto) (14.0 - 32.0 %) 15.6 [place] % (Auto) (4.8 - 9.0 %) 10.1 H Eos % (Auto) (0.3 - 3.7 %) 7.5 H Baso % (Auto) (0.0 - 2.0 %) 0.7 Neut # (Auto) (2.0 - 7.6 x10 3/uL) 5.53 Lymph # (Auto) (1.0 - 3.8 x10 3/uL) 1.39 [place] # (Auto) (0.1 - 0.8 x10 3/uL) [...] of motion, normal sensory, normal motor function Neuro/NEWSCAST DIRECTOR: 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 Rupture of ureter Free Text DxA P Notes Free text DxA P notes: Assessment: 62-year-old male with last medical history of, BPH, transferred from [place] for urology evaluation and treatment secondary to [...] supportive care at 2012 at 1301 RPT #:[id number] END OF REPORT [facility] 2022-10-18 17:48:00 [facility] ([facility] Nephrology Progress Note REPORT#:[id number] REPORT STATUS: Signed DATE:10/18/22 TIME: 1748 PATIENT: MATHEW CASTILLO UNIT #: [id number] [place]OM[place]BED: [facility] : 59 AGE: 62 SEX: M ATTEND: Salinas Alba MD ADM AUTHOR: Carmen Kemp * ALL edits or amendments must be made on the electronic/computer document * See Addendum Carmen Kemp 10/18/22 1748: Subjective Chief complaint: Concern for ruptured ureter [...] 10/18 10/18 10/18 10/17 1118 0740 0543 6661 2012 Chemistry Sodium (134 - 147 mEq/L) [...] % (Auto) (14.0 - 32.0 %) 15.6 [place] % (Auto) (4.8 - 9.0 %) 10.1 H Eos % (Auto) (0.3 - 3.7 %) 7.5 H Baso % (Auto) (0.0 - 2.0 %) 0.7 Neut # (Auto) (2.0 - 7.6 x10 3/uL) 5.53 Lymph # (Auto) (1.0 - 3.8 x10 3/uL) 1.39 [place] # (Auto) (0.1 - 0.8 x10 3/uL) [...] urine in his bladder. CT abdomen from [place] showed that the patient has a very [...] urine in his bladder. CT abdomen from [place] showed that the patient has a very [...] K and magnesium supplementation. at 193 RPT #:[id number] END OF REPORT [facility] 2022-10-17 22:43:00 [facility] Internal Medicine Prog. Note REPORT#:[id number] REPORT STATUS: Signed DATE:10/17/22 TIME: 2242 PATIENT: MATHEW CASTILLO UNIT #: [id number] ROOM/BED: [place] [address] : 59 AGE: 62 SEX: M ATTEND: Salinas Alba MD ADM AUTHOR: Sofia Cheng NP * ALL edits or amendments must be made on the electronic/computer document * Subjective Chief complaint: Abdominal distention, hydronephrosis HPI: 62-year-old male with last medical history of, BPH, transferred from [place] for urology evaluation and treatment secondary to [...] (Auto) (14.0 - 32.0 %) 10.6 L [place] % (Auto) (4.8 - 9.0 %) 12.8 H Eos % (Auto) (0.3 - 3.7 %) 2.7 Baso % (Auto) (0.0 - 2.0 %) 0.4 Neut # (Auto) (2.0 - 7.6 x10 3/uL) 8.23 H Lymph # (Auto) (1.0 - 3.8 x10 3/uL) 1.22 [place] # (Auto) (0.1 - 0.8 x10 3/uL) [...] of motion, normal sensory, normal motor function Neuro/NEWSCAST DIRECTOR: 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 Rupture of ureter Free Text DxA P Notes Free text DxA P notes: Assessment: 62-year-old male with last medical history of, BPH, transferred from [place] for urology evaluation and treatment secondary to [...] supportive care at 0210 at 1300 RPT #:[id number] END OF REPORT [facility] 2022-10-17 17:41:00 [facility] Urology Progress Note REPORT#:[id number] REPORT STATUS: Signed DATE:10/17/22 TIME: 174 PATIENT: MATHEW CASTILLO UNIT #: [id number] ROOM/BED: [place] [address] : 59 AGE: 62 SEX: M ATTEND: [...] (Auto) (14.0 - 32.0 %) 10.6 L [place] % (Auto) (4.8 - 9.0 %) 12.8 H Eos % (Auto) (0.3 - 3.7 %) 2.7 Baso % (Auto) (0.0 - 2.0 %) 0.4 Neut # (Auto) (2.0 - 7.6 x10 3/uL) 8.23 H Lymph # (Auto) (1.0 - 3.8 x10 3/uL) 1.22 [place] # (Auto) (0.1 - 0.8 x10 3/uL) [...] cystoscopy. Home with black at 1742 RPT #:[id number] END OF REPORT [facility] 2022-10-17 13:46:00 [facility] ([facility] Nephrology Progress Note REPORT#:[id number] REPORT STATUS: Signed DATE:10/17/22 TIME: 1346 PATIENT: MATHEW CASTILLO UNIT #: [id number] ROOM/BED: [place] [address] : 59 AGE: 62 SEX: M ATTEND: [...] (Auto) (14.0 - 32.0 %) 10.6 L [place] % (Auto) (4.8 - 9.0 %) 12.8 H Eos % (Auto) (0.3 - 3.7 %) 2.7 Baso % (Auto) (0.0 - 2.0 %) 0.4 Neut # (Auto) (2.0 - 7.6 x10 3/uL) 8.23 H Lymph # (Auto) (1.0 - 3.8 x10 3/uL) 1.22 [place] # (Auto) (0.1 - 0.8 x10 3/uL) [...] urine in his bladder. CT abdomen from [place] showed that the patient has a very [...] urine in his bladder. CT abdomen from [place] showed that the patient has a very [...] with above A/P at 1759 at 2234 [facility] #:[id number] END OF REPORT [facility] 2022-10-16 15:13:00 [place] [address] PATIENT NAME: MATHEW CASTILLO ADMIT DATE: 10/16/22 ACCOUNT NO: [id number] ROOM NO: [facility] AGE: 62 REPORT TYPE: CONSULTATION REPORT SEX: M ADMITTING PHYSICIAN:Salinas Alba MD ATTENDING PHYSICIAN:Salinas Alba MD CONSULTATION DATE:10/16/2022 REASON FOR CONSULTATION: Hydronephrosis, urinary retention. HISTORY OF PRESENT ILLNESS: This is a 62-year-old male with a history of schizophrenia who was sent in from [place]. He had reportedly almost 3 liters of [...] scan of the abdomen and pelvis from [place]. The patient has a very large distended [...] By: Dave Jones MD Date Dictated: 10/16/2022 15:13:22 Date Transcribed: 10/16/2022 16:06:29 /JENNI Receipt ID: [id number] Authenticated and Edited by Dave Jones MD On 11/12/22 1:37:06 PM at 0138 PATIENT NAME: MATHEW CASTILLO [facility] 2022-10-16 12:39:00 [facility]) Nephrology Consultation Note REPORT#:[id number] REPORT STATUS: Signed DATE:10/16/22 TIME: 1239 PATIENT: MATHEW CASTILLO UNIT #: [id number] ROOM/BED: 6630-1 : 59 AGE: 62 SEX: [...] Friday who took him to ER in [place]. He had CT abdomen which revealed b/l hydronephrosis and concern for possible ureteral rupture. [facility] Initial VS at [...] (Auto) (14.0 - 32.0 %) 3.8 L [place] % (Auto) (4.8 - 9.0 %) 13.6 H Eos % (Auto) (0.3 - 3.7 %) 0.4 Baso % (Auto) (0.0 - 2.0 %) 0.2 Neut # (Auto) (2.0 - 7.6 x10 3/uL) 8.96 H Lymph # (Auto) (1.0 - 3.8 x10 3/uL) 0.42 L [place] # (Auto) (0.1 - 0.8 x10 3/uL) [...] urine in his bladder. CT abdomen from [place] showed that the patient has a very [...] urine in his bladder. CT abdomen from [place] showed that the patient has a very [...] patient's nurse, and . Toby Koehler 10/16/22 2209: Attestations Physician Attestation Reviewed findings plan: Patient examined 62 years old male with PMH significant for schizophrenia, HTN, BPH, current everyday smoker. The patient states that on Friday last week, he noted abdominal distention, associated w/ pain and was unable to urinate. He was seen by his daughter Friday who took him to ER in [place]. He had CT abdomen which revealed b/l hydronephrosis and concern for possible ureteral rupture. He was transferred to [facility] [place] for Urology evaluation. Initial VS at the [...] Agree with above A/P at 1902 at 9190 RPT #:[id number] END OF REPORT [facility] 2022-10-16 11:15:00 [facility] ([facility]) History Physical - Adult REPORT#:[id number] REPORT STATUS: Signed DATE:10/16/22 TIME: 1115 PATIENT: MATHEW CASTILLO UNIT #: [id number] ROOM/BED: [place] [address] : 59 AGE: 62 SEX: M ATTEND: Salinas Alba MD ADM AUTHOR: Sofia Cheng NP * ALL edits or amendments must be made on the electronic/computer document * History of Present Illness HPI Chief complaint: Abdominal distention, hydronephrosis HPI: 62-year-old male with last medical history of, BPH, transferred from [place] for urology evaluation and treatment secondary to [...] of motion, normal sensory, normal motor function Neuro/NEWSCAST DIRECTOR: alert, oriented X 3 Skin: dry, intact, [...] (Auto) (14.0 - 32.0 %) 3.8 L [place] % (Auto) (4.8 - 9.0 %) 13.6 H Eos % (Auto) (0.3 - 3.7 %) 0.4 Baso % (Auto) (0.0 - 2.0 %) 0.2 Neut # (Auto) (2.0 - 7.6 x10 3/uL) 8.96 H Lymph # (Auto) (1.0 - 3.8 x10 3/uL) 0.42 L [place] # (Auto) (0.1 - 0.8 x10 3/uL) [...] last medical history of, BPH, transferred from [place] for urology evaluation and treatment secondary to [...] clinical course at 0232 at 1204 RPT #:[id number] END OF REPORT [facility] 2022-10-16 03:54:00 [facility] ([facility]) EMERGENCY PROVIDER REPORT REPORT#:[id number] REPORT STATUS: Signed DATE:10/16/22 TIME: 0354 PATIENT: MATHEW CASTILLO UNIT #: [id number] ROOM/BED: [place]-11 AGE: 62 SEX: M PCP PHYS: No [...] air 10/16 0308 Temp 37.1 / 0308 Pulse 92 / 0308 Resp 18 [...] (Auto) (14.0 - 32.0 %) 3.8 L [place] % (Auto) (4.8 - 9.0 %) 13.6 H Eos % (Auto) (0.3 - 3.7 %) 0.4 Baso % (Auto) (0.0 - 2.0 %) 0.2 Neut # (Auto) (2.0 - 7.6 x10 3/uL) 8.96 H Lymph # (Auto) (1.0 - 3.8 x10 3/uL) 0.42 L [place] # (Auto) (0.1 - 0.8 x10 3/uL) [...] DC 10/16 Sodium Chloride 10 ML IV 10/168 0503 Consultation Consultation Referral/Consult Name Dave Jones MD Line Up Examiner Called Urology Line Up Examiner Discussed with process consultant Requested Call Time 0345 Requested Call [...] chart for administrative purposes only. at 1907 RPT #:[id number] END OF REPORT [facility]
--- NOTE | 2024-01-31 15:50 | ER ---
Nurse's Notes [facility] Name: Mathew Porter Age: 63 yrs Sex: Male : 1960 Arrival Date: 01/31/2024 Time: 15:03 Bed 6 Private MD: Diagnosis: Other mechanical complication of urinary (indwelling) catheter Presentation: 01/30 15:15 Chief complaint: Patient states: "I need my catheter replaced and my penis is hurting". aa5 15:15 Coronavirus screen: At this time, the client does not indicate any symptoms associated aa5 with coronavirus-19. Ebola Screen: Patient denies travel to an Ebola-affected area in the 21 days before illness onset. Initial Sepsis Screen: Does the patient meet any 2 criteria? HR > 90 bpm. Does the patient have a suspected source of infection? No. Patient's initial sepsis screen is negative. Risk Assessment: Do you want to hurt yourself or someone else? Patient reports no desire to harm self or others. Onset of symptoms was January 2024. 15:15 Acuity: JAMILA 4 aa5 15:15 Method Of Arrival: Ambulatory aa5 Triage Assessment: 15:15 General: Appears in no apparent distress. unkempt, Behavior is agitated, anxious. Pain: bp Complains of pain in groin. EENT: No deficits noted. Neuro: No deficits noted. Cardiovascular: No deficits noted. Respiratory: No deficits noted. GI: No signs and/or symptoms were reported involving the gastrointestinal system. : Mercer in place to gravity drainage. Derm: No deficits noted. Musculoskeletal: No deficits noted. Historical: - Allergies: 15:21 NKA; aa5 - PMHx: 15:21 Schizophrenia; aa5 - PSHx: 15:21 Urolift (Unknown); aa5 - Immunization history:: Adult Immunizations unknown. - Infectious Disease History:: Denies. - Social history:: Smoking status: Patient reports the use of cigarette tobacco products. Screenin:06 [facility] ED Fall Risk Assessment (Adult) History of falling in the last 3 months, bp including since admission No falls in past 3 months (0 pts) Confusion or Disorientation No (0 pts) Intoxicated or Sedated No (0 pts) Impaired Gait No (0 pts) Mobility Assist Device Used No (0 pt) Altered Elimination No (0 pt) Score/Fall Risk Level 0 - 2 = Low Risk Oriented to surroundings. Abuse screen: Denies threats or abuse. Denies injuries from another. Nutritional screening: No deficits noted. Tuberculosis screening: No symptoms or risk factors identified. Assessment: 16:06 General: Appears in no apparent distress. bp Vital Signs: 15:15 BP 166 / 100; Pulse 95; Resp 20 S; Temp 98(TE); Pulse Ox 95% on R/A; Weight 68.49 kg aa5 (R); Height 5 ft. 10 in. (R); 15:15 Body Mass Index 21.67 (68.49 kg, 177.8 cm) aa5 ED Course: 15:06 Patient arrived in ED. ra3 15:09 Karsten Coles MD is Attending Physician. [facility] 15:15 Arm band placed on. aa5 15:18 John Roberts, DEENA is Primary Nurse. bp 15:23 Triage completed. aa 15:45 Urine collected: Mercer catheter specimen, cloudy. Mercer cath inserted, using sterile bp technique, 18 Fr., by va, balloon inflated, to gravity drainage, urine specimen collected. 15:49 Ricky Navarrete MD is Referral Physician. genna 16:06 Patient has correct armband on for positive identification. bp 16:06 No provider procedures requiring assistance completed. Patient did not have IV access bp during this emergency room visit. Administered Medications: 16:00 Drug: Ciprofloxacin PO 500 mg PO once Route: PO; bp 16:08 Follow up: Response: No adverse reaction bp Medication: 16:06 VIS not applicable for this client. bp Outcome: 15:45 Discharged to home ambulatory, bp 15:45 Condition: stable 15:45 Discharge instructions given to patient, Instructed on discharge instructions, follow up and referral plans. medication usage, Demonstrated understanding of instructions, follow-up care, medications, Prescriptions given X 1, 15:50 Discharge ordered by . genna 16:08 Patient left the ED. bp Addendum: 02/03/2024 09:07 Addendum: Culture Results: Positive urine culture. No further action required. Bacteria s s sensitive to prescribed antibiotic. Signatures: Karsten Coles MD MD cha Calderon, Audri RN RN aa Judy Rutledge RN RN John Roberts RN RN Katie Keating ra3
--- NOTE | 2024-01-31 15:50 | EDPHYS ---
Physician Documentation [facility] Name: Mathew Porter Age: 63 yrs Sex: Male : 1960 Arrival Date: 01/31/2024 Time: 15:03 Bed 6 Private MD: ED Physician Karsten Coles HPI: 01/30 15:44 This 63 yrs old Male presents to ER via Ambulatory with complaints of Needs genna Urinary Catheter Replacement. 15:44 The patient presents with a Black catheter problem, NEEDS REPLACING. Modifying factors: genna The symptoms are alleviated by nothing, the symptoms are aggravated by nothing. Severity of symptoms: At their worst the symptoms were mild, in the emergency department the symptoms are unchanged. The patient has experienced similar episodes in the past, several times. Historical: - Allergies: 15:21 NKA; aa5 - PMHx: 15:21 Schizophrenia; aa5 - PSHx: 15:21 Urolift (Unknown); aa5 - Immunization history:: Adult Immunizations unknown. - Infectious Disease History:: Denies. - Social history:: Smoking status: Patient reports the use of cigarette tobacco products. ROS: 15:46 Constitutional: Negative for fever, chills, and weight loss, Eyes: Negative for injury, genna pain, redness, and discharge, ENT: Negative for injury, pain, and discharge, Neck: Negative for injury, pain, and swelling, Cardiovascular: Negative for chest pain, palpitations, and edema, Respiratory: Negative for shortness of breath, cough, wheezing, and pleuritic chest pain, Abdomen/GI: Negative for abdominal pain, nausea, vomiting, diarrhea, and constipation, Back: Negative for injury and pain, MS/Extremity: Negative for injury and deformity, Skin: Negative for injury, rash, and discoloration, Neuro: Negative for headache, weakness, numbness, tingling, and seizure, Psych: Negative for depression, anxiety, suicide ideation, homicidal ideation, and hallucinations, Allergy/Immunology: Negative for hives, rash, and allergies, Endocrine: Negative for neck swelling, polydipsia, polyuria, polyphagia, and marked weight changes, Hematologic/Lymphatic: Negative for swollen nodes, abnormal bleeding, and unusual bruising, 15:46 : Positive for difficulty urinating, BLACK ISSUE, Exam: 15:46 Constitutional: This is a well developed, well nourished patient who is awake, alert, genna and in no acute distress. Head/Face: Normocephalic, atraumatic. Eyes: Pupils equal round and reactive to light, extra-ocular motions intact. Lids and lashes normal. Conjunctiva and sclera are non-icteric and not injected. Cornea within normal limits. Periorbital areas with no swelling, redness, or edema. ENT: Nares patent. No nasal discharge, no septal abnormalities noted. Tympanic membranes are normal and external auditory canals are clear. Oropharynx with no redness, swelling, or masses, exudates, or evidence of obstruction, uvula midline. Mucous membranes moist. Neck: Trachea midline, no thyromegaly or masses palpated, and no cervical lymphadenopathy. Supple, full range of motion without nuchal rigidity, or vertebral point tenderness. No Meningismus. Chest/axilla: Normal chest wall appearance and motion. Nontender with no deformity. No lesions are appreciated. Cardiovascular: Regular rate and rhythm with a normal S1 and S2. No gallops, murmurs, or rubs. Normal PMI, no JVD. No pulse deficits. Respiratory: Lungs have equal breath sounds bilaterally, clear to auscultation and percussion. No rales, rhonchi or wheezes noted. No increased work of breathing, no retractions or nasal flaring. Abdomen/GI: Soft, non-tender, with normal bowel sounds. No distension or tympany. No guarding or rebound. No evidence of tenderness throughout. Back: No spinal tenderness. No costovertebral tenderness. Full range of motion. Skin: Warm, dry with normal turgor. Normal color with no rashes, no lesions, and no evidence of cellulitis. MS/ Extremity: Pulses equal, no cyanosis. Neurovascular intact. Full, normal range of motion. Neuro: Awake and alert, GCS 15, oriented to person, place, time, and situation. Cranial nerves II-XII grossly intact. Motor strength 5/5 in all extremities. Sensory grossly intact. Cerebellar exam normal. Normal gait. Psych: Awake, alert, with orientation to person, place and time. Behavior, mood, and affect are within normal limits. 15:46 : CVA tenderness, is absent, Male external genitalia: normal, Bladder: is normal, Vital Signs: 15:15 BP 166 / 100; Pulse 95; Resp 20 S; Temp 98(TE); Pulse Ox 95% on R/A; Weight 68.49 kg aa5 (R); Height 5 ft. 10 in. (R); 15:15 Body Mass Index 21.67 (68.49 kg, 177.8 cm) aa5 MDM: 15:09 Medical Screening Exam initiated [facility] 15:48 Differential diagnosis: UTI, urinary retention, Black catheter problem, prostatitis, genna urethritis. Data reviewed: vital signs, nurses notes, lab test result(s), urinalysis. Consideration of Admission/Observation Escalation of care including admission/observation considered. I considered the following discharge prescriptions or medication management in the emergency department Medications were administered in the Emergency Department. See MAR. Care significantly affected by the following chronic conditions: SCHIZO. 01/30 15:10 Order name: Urine Culture [facility] 01/30 15:10 Order name: Urinalysis w/ reflexes [facility] 01/30 15:10 Order name: Black; Complete Time: 16:00 genna Administered Medications: 16:00 Drug: Ciprofloxacin PO 500 mg PO once Route: PO; bp 16:08 Follow up: Response: No adverse reaction bp Disposition Summary: 01/31/24 15:50 Discharge Ordered Notes: Location: Home genna Problem: new genna Symptoms: have improved genna Condition: Stable genna Diagnosis - Other mechanical complication of urinary (indwelling) catheter genna Followup: genna - With: Private Physician - When: 2 - 3 days - Reason: Recheck today's complaints, Re-evaluation by your physician Followup: genna - With: Ricky Navarrete MD - When: 2 - 3 days - Reason: Recheck today's complaints, Re-evaluation by your physician Discharge Instructions: - Discharge Summary Sheet genna - Indwelling Urinary Catheter Care, Adult genna - Indwelling Urinary Catheter Care, Adult, [id number] genna Forms: - Medication Reconciliation Form genna - Antibiotic Education genna - Prescription Opioid Use genna - Patient Portal Instructions genna - Leadership Thank You Letter [facility] Prescriptions: - Cipro 250 mg Oral tablet - take 1 tablet ORAL route every 12 hours; 14 tablet; Refills: 0, Product genna Selection Permitted Signatures: Dispatcher [employer] Karsten Rodriguez MD MD cha Calderon, Audri RN RN aa5 John Roberts RN RN bp Corrections: (The following items were deleted from the chart) 15:10 15:10 Urine Culture+BA.LAB.BRZ ordered. EDMS EDMS 15:10 15:10 Urinalysis+U.LAB.BRZ ordered. EDMS EDMS
[2024-01-31] MEDS ORDERED: CIPROFLOXACIN HCL 500 MG TAB ONE (16:00)
[2024-01-31 16:16] LABS: Calcium Oxalate Crystals- Ur Few /HPF (None Seen); Specific Gravity 1.018 (1.005-1.030); Sqamous Epithelial None Seen /HPF (None Seen); Urine Bacteria <20 /HPF (<20); Urine Bilirubin NEGATIVE (Negative); Urine Blood 2+ (Negative); Urine Clarity Extremely Turbid (Clear); Urine Color Light-Orange (Yellow); Urine Culture Reflex Order REFLEXED; Urine Glucose NEGATIVE (Negative); Urine Ketones NEGATIVE (Negative); Urine Microscopic Reflex YN ORDER UMIC; Urine Nitrite 2+ (Negative); Urine Protein 3+ (Negative); Urine RBC >50 /HPF (None Seen); Urine Urobilinogen Normal (Normal); Urine WBC >50 /HPF (<5)
[2024-02-01 01:45] VITALS: BP 166/100; TEMP 98; O2SAT 95
== END 2024-01-31 16:08 | disposition home or self-care (01) ==
LOC: ER 15:03
DX: T83.098A Other mechanical complication of other urinary catheter, initial encounter (principal)
CPT/HCPCS: 51702; 81001; 87077; 87086; 87088; 87186; 99284

== ENCOUNTER 2024-03-20 11:11 | Emergency (ER) | payer OTHER ==
--- OUTSIDE RECORDS SUMMARY | 2024-03-20 11:16 | XMS REPORT | Continuity of Care Document ---
Author Name Unknown Address [address] [facility] [place] [place] [id number] [facility] thconnect Address [address] [facility] [place] [place] [address] Care Team Providers Care Brass Cutter Name Role Phone Salinas Alba I Attending [...] s DA Active U 10-16 00:00: 00 [facility] Encounters Start Date/Time End Date/Time Encounter Type Admission Type Attending Clinicians Care Facility Care Department Encounter ID Source 2023-01-21 06:38:00 2023-01-22 20:00:00 Inpatient EM Salinas Alba [facility] MED[facility].01 [id number] [facility] 2023-01-06 15:12:00 2023-01-11 21:08:00 Inpatient EM [place] Alba [facility] MED[facility].01 [id number] [facility] 2022-10-16 05:03:00 2022-10-26 19:41:00 Inpatient EM [place] Alba [facility] MEDI.01 [id number] [facility] Results Test Description Test Time Test Comments Results Resul t Comments Source - CT ABD PELVIS W/CONT 2023-01-05 8 [facility] 1960 Sex: M Name: OSMAR CASTILLO [facility] : 1960 Age/S: 62 / M [address] [place] [address] Blvd Unit #: [id number] Loc: [place] [address] Phys: Sofia Cheng POULTICE MACHINE OPERATOR Acct: [id number] Dis Date: Status: ADM IN PHONE #: [phone] Exam Date: 01/22/2023 1231 FAX #: [phone] Reason: ABD PAIN EXAMS: CPT CODE: [id number] CT ABD PELVIS W/CONT 43577 EXAM: CT abdomen and pelvis with contrast [...] 1 Signed Report (CONTINUED) Name: OSMAR CASTILLO [facility] : 1960 Age/S: 62 / M [address] [place] [address] Blvd Unit #: [id number] Loc: [place] [address] Phys: Sofia Cheng POULTICE MACHINE OPERATOR Acct: [id number] Dis Date: Status: ADM IN PHONE #: [phone] Exam Date: 01/22/2023 1231 FAX #: [phone] Reason: ABD PAIN EXAMS: CPT CODE: [id number] CT ABD PELVIS W/CONT 71818 (Continued) abdominal aortic aneurysm. Pelvic organs/bladder: Moderate [...] M.D. CC: Lakhwinder Guillermo MD; Sofia Cheng POULTICE MACHINE OPERATOR; Salinas Dukes MD Technologist:Rick Moran Jr, RT(R)(CT) CTDI: DLP: Trnscb Date/Time: 01/22/2023 (1300) t.SDR.BC0 Orig Print D/T: S: 01/22/2023 (0806) PAGE 2 Signed Report [id number] 07:46:00* Test Item Value Reference Range Interpretation Comme nts PHOSPHOROUS (test code = PHOS) 2.4 MG/DL 2.5-4.9 L [id number] 07:46:00* Test Item Value Reference Range Interpretation Comme nts MAGNESIUM (test code = MAG) 1.69 mg/dL 1.6-2.6 N NOTE: NEW NORMAL RANGE CBC W/AUTO [id number] 07:05:00* Test Item Value Reference Range Interpretation [...] 0.00 x10 3/uL 0.0-0.1 N BASIC METABOLIC [id number] 06:08:00* Test Item Value Reference Range Interpretation [...] CA) 8.2 mg/dL 8.0-10.5 N CBC W/AUTO [id number] 05:57:00* Test Item Value Reference Range Interpretation [...] c ode = MDIFF) NO CBC W/AUTO [id number] 08:15:00* Test Item Value Reference Range Interpretation [...] 0.00 x10 3/uL 0.0-0.1 N BASIC METABOLIC [id number] 07:28:00* Test Item Value Reference Range Interpretation [...] CA) 8.6 mg/dL 8.0-10.5 N BASIC METABOLIC [id number] 07:46:00* Test Item Value Reference Range Interpretation [...] CA) 8.7 mg/dL 8.0-10.5 N CBC W/AUTO [id number] 07:34:00* Test Item Value Reference Range Interpretation [...] 0.00 x10 3/uL 0.0-0.1 N CBC W/AUTO [id number] 08:43:00* Test Item Value Reference Range Interpretation [...] c ode = MDIFF) NO BASIC METABOLIC [id number] 07:14:00* Test Item Value Reference Range Interpretation [...] CA) 7.8 mg/dL 8.0-10.5 L CBC W/AUTO [id number] 08:58:00* Test Item Value Reference Range Interpretation [...] c ode = MDIFF) NO BASIC METABOLIC [id number] 08:27:00* Test Item Value Reference Range Interpretation [...] HGBA1C%) 5.1 %A1C 4.8-6.0 N CBC W/AUTO [id number] 08:05:00* Test Item Value Reference Range Interpretation [...] (test code = MDIFF) NO BASIC METABOLIC [id number] 07:46:00* Test Item Value Reference Range Interpretation [...] = LDL) 104.0 mg/dL 0-100 H <100 XCNSJSC00 0-129 NEAR OPTIMAL/ABOVE [id number] CUOXQVCGLH022-716 HIGH>QN=168 VERY HIGH*Guidelines provided by the National Cholesterol EducationProgram Adult Treatment Panel III [id number] 07:46:00* Test Item Value Reference Range Interpretation Comme nts PHOSPHOROUS (test code = PHOS) 3.4 MG/DL 2.5-4.9 N [id number] 07:46:00* Test Item Value Reference Range Interpretation Comme nts MAGNESIUM (test code = MAG) 1.69 mg/dL 1.6-2.6 N NOTE: NEW NORMAL RANGE TSH REFLEX TO [id number] 07:46:00* Test Item Value Reference Range Interpretation Comme nts TSH REFLEX TO FT4 (test code = TSHREFLEX) 2.37 IU/mL 0.42-5.47 N LACTIC [id number] 05:48:00* Test Item Value Reference Range Interpretation Comme nts LACTIC ACID (test code = LACT) 1.1 mmol/L 0.4-1.9 N LACTIC ACID [id number] 02:38:00* Test Item Value Reference Range Interpretation Comme nts LACTIC ACID REPEAT (test cod e = LACTR) 0.9 mmol/l 0.4-1.9 N CALLED SEVERINO @01:18 TO REMIND WE NEEDED REPEATLACTIC [id number] 22:36:00* Test Item Value Reference Range Interpretation Comme nts LACTIC ACID (test code = LACT) 2.9 mmol/L 0.4-1.9 H UA RFLX MICR CULT IF [id number] 22:35:00* Test Item Value Reference Range Interpretation [...] Less than 14 days- CT ABD PELVIS [id number] 22:24:00 [facility] MAREN HUANGName: OSMAR CASTILLO : 1960 Sex: M Name: OSMAR CASTILLO [facility] : 1960 Age/S: 62 / M [address] Unit #: [id number] Loc: [place] [address] Phys: Vee Horton Acct: [id number] Dis Date: Status: [facility] ER PHONE #: [phone] Exam Date: 01/04/2023 0940 FAX #: [phone] Reason: GROSS HEMATURIA EXAMS: CPT CODE: [id number] CT ABD PELVIS W/CONT 25203 H 20 TIME OF STUDY: 01/04/2023 7:55 [...] 1 Signed Report (CONTINUED) Name: OSMAR CASTILLO [facility] : 1960 Age/S: 62 / M [address] [place] [address] Bl Unit #: [id number] Loc: [place] [address] Phys: Vee Horton Acct: [id number] Dis Date: Status: REG ER PHONE #: [phone] Exam Date: 01/04/2023 09 FAX #: [phone] Reason: GROSS HEMATURIA EXAMS: CPT CODE: [id number] CT ABD PELVIS W/CONT 49969 (Continued) at 2224 Reported and signed by: Zia Magaña M.D. CC: Lakhwinder Guillermo MD; Vee Horton; Javier Sullivan MD Technologist:Latoya Moeller, RT(R); Lesvia Humphries CTDI: DLP: Trnscb Date/Time: 01/04/2023 (2223) t.SDR.SI1 Orig Print D/T: S: 01/04/2023 (2226) PAGE 2 Signed ReportCOMPREHENSIVE METABOLIC [id number] 21:07:00* Test Item Value Reference Range Interpretation [...] ALKP) 60 IUnit/L 20-125 N CBC W/AUTO [id number] 20:38:00* Test Item Value Reference Range Interpretation [...] (test code = MDIFF) NO BASIC METABOLIC [id number] 08:30:00* Test Item Value Reference Range Interpretation [...] reported result: 4.9 mg/dLEdited by: KRISTEN on 10/31/22:934311 0829: CA previously reported as: 4.9 *L mg/dL Critical [place] [address]/16/22 Nurse read back result and tech confirmed it's correct? Y GLUCOSE [id number] 17:27:00* Test Item Value Reference Range Interpretation Comme nts GLUCOSE BEDSIDE (test code = GLUBED) 109 MG/DL 70-110 N Performed by teto tse at [facility] GLUCOSE [id number] 12:34:00* Test Item Value Reference Range Interpretation Comme nts GLUCOSE BEDSIDE (test code = GLUBED) 95 MG/DL 70-110 N Performed by cer tified box folding machine operator at [facility] GLUCOSE [id number] 08:49:00* Test Item Value Reference Range Interpretation Comme nts GLUCOSE BEDSIDE (test code = GLUBED) 117 MG/DL 70-110 H Performed by cer tified box folding machine operator at [facility] BASIC METABOLIC [id number] 07:57:00* Test Item Value Reference Range Interpretation [...] = CA) 8.1 mg/dL 8.0-10.5 N GLUCOSE [id number] 17:07:00* Test Item Value Reference Range Interpretation Comme nts GLUCOSE BEDSIDE (test code = GLUBED) 127 MG/DL 70-110 H Performed by cer tified box folding machine operator at [facility] GLUCOSE [id number] 12:26:00* Test Item Value Reference Range Interpretation Comme nts GLUCOSE BEDSIDE (test code = GLUBED) 123 MG/DL 70-110 H Performed by cer tified box folding machine operator at [facility] GLUCOSE [id number] 07:59:00* Test Item Value Reference Range Interpretation Comme nts GLUCOSE BEDSIDE (test code = GLUBED) 92 MG/DL 70-110 N Performed by cer violeta box folding machine operator at [facility] BASIC METABOLIC [id number] 07:38:00* Test Item Value Reference Range Interpretation [...] CA) 7.8 mg/dL 8.0-10.5 L CBC W/AUTO [id number] 07:27:00* Test Item Value Reference Range Interpretation [...] REQUIRED (test code = MDIFF) NO GLUCOSE [id number] 21:25:00* Test Item Value Reference Range Interpretation Comme nts GLUCOSE BEDSIDE (test code = GLUBED) 154 MG/DL 70-110 H Performed by cer tified box folding machine operator at [facility] GLUCOSE [id number] 17:43:00* Test Item Value Reference Range Interpretation Comme nts GLUCOSE BEDSIDE (test code = GLUBED) 73 MG/DL 70-110 N Performed by cer tified box folding machine operator at [facility] GLUCOSE [id number] 10:08:00* Test Item Value Reference Range Interpretation Comme nts GLUCOSE BEDSIDE (test code = GLUBED) 87 MG/DL 70-110 N Performed by cer tified box folding machine operator at [facility] GLUCOSE [id number] 20:12:00* Test Item Value Reference Range Interpretation Comme nts GLUCOSE BEDSIDE (test code = GLUBED) 139 MG/DL 70-110 H Performed by cer tified box folding machine operator at [facility] GLUCOSE [id number] 17:32:00* Test Item Value Reference Range Interpretation Comme nts GLUCOSE BEDSIDE (test code = GLUBED) 79 MG/DL 70-110 N Performed by cer tified box folding machine operator at [facility] GLUCOSE [id number] 12:14:00* Test Item Value Reference Range Interpretation Comme nts GLUCOSE BEDSIDE (test code = GLUBED) 98 MG/DL 70-110 N Performed by cer tified box folding machine operator at [facility] GLUCOSE [id number] 08:36:00* Test Item Value Reference Range Interpretation Comme nts GLUCOSE BEDSIDE (test code = GLUBED) 92 MG/DL 70-110 N Performed by cer tified box folding machine operator at [facility] BASIC METABOLIC [id number] 07:50:00* Test Item Value Reference Range Interpretation [...] code = CA) 7.6 mg/dL 8.0-10.5 L [id number] 07:50:00* Test Item Value Reference Range Interpretation Comme nts MAGNESIUM (test code = MAG) 1.53 mg/dL 1.80-2.40 L - CTA CHEST FOR [id number] 00:00:00 [facility] 1960 Sex: M Name: OSMAR CASTILLO [facility] : 1960 Age/S: 62 / M [address] [place] [address] Blvd Unit #: [id number] Loc: [place] [address] Phys: Sofia Cheng POULTICE MACHINE OPERATOR Acct: [id number] Dis Date:Status: ADM IN PHONE #: [phone] Exam Date: 10/23/2022 172 FAX #: [phone] Reason: ELEVATED D DIMER EXAMS: CPT CODE: [id number] [place] [address] PROCEDURE INFORMATION: Exam: CTA ChestWith Contrast Exam [...] splenic PAGE 1 Signed Report (CONTINUED) Name: OSMAR CASTILLO [facility] : 1960 Age/S: 62 / M [address] [place] [address] Unit #: [id number] Loc: [place] VC10246 Phys: Sofia Cheng POULTICE MACHINE OPERATOR Acct: [id number] Dis Date: Status: ADM IN PHONE #: [phone] Exam Date: 10/23/2022 1722 FAX #: [phone] Reason: ELEVATED D DIMER EXAMS: CPT CODE: [id number] [place] [address] (Continued) flexure compatible with colitis incompletely evaluated. [...] by: Hayden Rg M.D. CC: Sofia Cheng POULTICE MACHINE OPERATOR; Salinas Dukes MD Technologist:Latoya Pérez, RT(R)(CT); . CTDI: DLP: Trnscb Date/Time: 10/23/2022 (2012) tHILARIOR.JT18 Orig Print D/T: S: 10/23/2022 (2012) PAGE 2 Signed ReportGLUCOSE [id number] 20:23:00* Test Item Value Reference Range Interpretation Comme nts GLUCOSE BEDSIDE (test code = GLUBED) 123 MG/DL 70-110 H Performed by [facility] tified box folding machine operator at [facility] GLUCOSE [id number] 17:34:00* Test Item Value Reference Range Interpretation Comme nts GLUCOSE BEDSIDE (test code = GLUBED) 132 MG/DL 70-110 H Performed by [facility] tified box folding machine operator at [facility] GLUCOSE [id number] 11:57:00* Test Item Value Reference Range Interpretation Comme nts GLUCOSE BEDSIDE (test code = GLUBED) 118 MG/DL 70-110 H Performed by [facility] tified box folding machine operator at [facility] GLUCOSE [id number] 08:22:00* Test Item Value Reference Range Interpretation Comme nts GLUCOSE BEDSIDE (test code = GLUBED) 100 MG/DL 70-110 N Performed by [facility] SCOUPY box folding machine operator at [facility] BASIC METABOLIC [id number] 08:05:00* Test Item Value Reference Range Interpretation [...] code = CA) 7.8 mg/dL 8.0-10.5 L [id number] 08:05:00* Test Item Value Reference Range Interpretation Comme nts MAGNESIUM (test code = MAG) 1.72 mg/dL 1.80-2.40 L GLUCOSE [id number] 21:10:00* Test Item Value Reference Range Interpretation Comme nts GLUCOSE BEDSIDE (test code = GLUBED) 148 MG/DL 70-110 H Performed by cer tified box folding machine operator at [facility] GLUCOSE [id number] 17:29:00* Test Item Value Reference Range Interpretation Comme nts GLUCOSE BEDSIDE (test code = GLUBED) 102 MG/DL 70-110 N Performed by cer tified box folding machine operator at [facility] GLUCOSE [id number] 11:54:00* Test Item Value Reference Range Interpretation Comme nts GLUCOSE BEDSIDE (test code = GLUBED) 104 MG/DL 70-110 N Performed by [employer] t[employer]ucks[employer] box folding machine operator at [facility] CBC W/MANUAL [id number] 10:35:00* Test Item Value Reference Range Interpretation [...] (test code = PLTMORPH) LARGE PLATELETS GLUCOSE [id number] 07:57:00* Test Item Value Reference Range Interpretation Comme [facility] GLUCOSE BEDSIDE (test code = GLUBED) 95 MG/DL 70-110 N Performed by cer tified box folding machine operator at [facility] C REACTIVE [id number] 07:48:00* Test Item Value Reference Range Interpretation Comme [facility] C REACTIVE PROTEIN (test cod e = CRP) 36.0 mg/L <10.0 H BASIC METABOLIC [id number] 07:40:00* Test Item Value Reference Range Interpretation [...] code = CA) 7.3 mg/dL 8.0-10.5 L [id number] 07:40:00* Test Item Value Reference Range Interpretation Comme nts MAGNESIUM (test code = MAG) 1.50 mg/dL 1.80-2.40 L [id number] 07:04:00* Test Item Value Reference Range Interpretation Comme nts D-DIMER (test code = DDIMER) 5949 ng/mlFEU See_Comment HH Critical result called to Brigido RUIZLAB.JJ1 at 0701 10/21/22Nurse read back result and tech confirmed it's correct? YESTHROMBOSIS AND/OR PULMONARY EMBOLISM AND THE CLINICAL CUT- OFF VALUE FOR EXCLUSION (500 ng/mL FEU) OF THESE CONDITIONSIS VALIDATED BY THE FAST BRIM POUNCER OF THE METHOD. A NEGATIVE D-DIMER RESULT [...] this result as normal/abnormal. - DUP VEIN [id number] 00:00:00 [facility] MAREN HUANGName: OSMAR CASTILLO : 1960 Sex: M Name: OSMAR CASTILLO [facility] Maren Huang : 1960 Age/S: 62 / M [address] [place] [address] Unit #: [id number] Loc: [place] [address] Phys: Skip Jaffe MD Acct: [id number] Dis Date: Status: ADM IN PHONE #: [phone] Exam Date: 10/21/2022820 FAX #: [phone] Reason: R/o DVT EXAMS: CPT CODE: [id number] DUP VEIN ASAEL 34007 PROCEDURE INFORMATION: Exam: US Duplex Lower Extremity [...] (911) Probe: PAGE 1 Signed Report GLUCOSE [id number] 20:40:00* Test Item Value Reference Range Interpretation Comme [facility] GLUCOSE BEDSIDE (test code = GLUBED) 148 MG/DL 70-110 H Performed by cer tified box folding machine operator at [facility] GLUCOSE [id number] 16:46:00* Test Item Value Reference Range Interpretation Comme [facility] GLUCOSE BEDSIDE (test code = GLUBED) 122 MG/DL 70-110 H Performed by cer tified box folding machine operator at [facility] TROP-I HIGH [id number] 15:04:00* Test Item Value Reference Range Interpretation Comme [facility] TROP-I HIGH SENSITIVITY (test code = [...] the URL. These results were obtained using [employer] IM TnIHreagent. Results from different methodologies should not becompared to one another as quantitative results and URLs mayvary by method. BASIC METABOLIC [id number] 15:04:00* Test Item Value Reference Range Interpretation [...] CA) 7.1 mg/dL 8.0-10.5 L TROP-I HIGH [id number] 10:07:00* Test Item Value Reference Range Interpretation [...] URL. These results were obtained using [employer] IM TnIHreagent. Results from different methodologies should not becompared to one another as quantitative results and URLs mayvary by method. CBC W/AUTO [id number] 09:54:00* Test Item Value Reference Range Interpretation [...] (test code = MDIFF) NO TROP-I HIGH [id number] 09:24:00* Test Item Value Reference Range Interpretation [...] the URL. These results were obtained using [employer] IM TnIHreagent. Results from different methodologies should not becompared to one another as quantitative results and URLs mayvary by method. GLUCOSE [id number] 08:49:00* Test Item Value Reference Range Interpretation Comme nts GLUCOSE BEDSIDE (test code = GLUBED) 102 MG/DL 70-110 N Performed by teto mcdaniel box folding machine operator at [facility] COMPREHENSIVE METABOLIC [id number] 02:08:00* Test Item Value Reference Range Interpretation [...] code = ALKP) 47 IUnit/L 20-125 N [id number] 02:08:00* Test Item Value Reference Range Interpretation Comme nts LIPASE (test code = LIP) 57 U/L 13-57 N PROTHROMBIN [id number] 02:05:00* Test Item Value Reference Range Interpretation [...] Infarction (to prevent recurrent infarct). THROMBOPLASTIN TIME [id number] 02:05:00* Test Item Value Reference Range Interpretation [facility] THROMBOPLASTIN TIME PARTIAL (test code = PTT) 26.1 Seconds 25.0-39.5 N Therapeutic Rang e: 50.4 - 88.3 Seconds Effective 07/21/2018 LACTIC [id number] 01:59:00* Test Item Value Reference Range Interpretation Comm nts LACTIC ACID (test code = LACT) 1.1 mmol/L 0.4-1.9 N CBC W/AUTO [id number] 01:51:00* Test Item Value Reference Range Interpretation [...] = MDIFF) NO - XR CHEST 1 [id number] 00:00:00 [facility] : 1960 Sex: M FAX: Sofia Cheng NP [phone] [place]: St: ADM FAX: Salinas Callahan I [phone] Name: OSMAR CASTILLO [facility] : 1960 Age/S: 62/M [address] [place] [address] Unit #: [id number] Loc: G.[address] [place] [address] Phys: Sofia Cheng NP Acct: [id number] Dis Date: Status: ADM IN PHONE #: [phone] Exam Date: 10/20/20227 FAX #: [phone] Reason: Sepsis EXAMS: CPT CODE: [id number] XR CHEST 1 V 32467 PROCEDURE INFORMATION: Exam: XR Chest Exam date [...] S: 10/20/2022 (214) PAGE 1 Signed ReportGLUCOSE [id number] 21:00:00* Test Item Value Reference Range Interpretation Comme nts GLUCOSE BEDSIDE (test code = GLUBED) 135 MG/DL 70-110 H Performed by cer shashankied box folding machine operator at [facility] URINALYSIS [id number] 20:03:00* Test Item Value Reference Range Interpretation [...] MUCU) 1+ /LPF NONE SEEN UR SODIUM [id number] 20:03:00* Test Item Value Reference Range Interpretation Comme nts UR SODIUM RANDOM (test code = ALPHONSE) 102 MEQ/L The Reference Ra nge and Method Performance specificationshave not been established for this fluid. The test resultshould be correlated into the clinical context forinterpretation. UR PROTEIN [id number] 20:03:00* Test Item Value Reference Range Interpretation Comme nts UR PROTEIN RANDOM (test code = PROTU) 79 mg/dL UR CREATININE [id number] 20:03:00* Test Item Value Reference Range Interpretation Comme nts UR CREATININE RANDOM (test code = CREATU) 111.9 mg/dL The Reference Ra nge and Method Performance specificationshave not been established for this fluid. The test resultshould be correlated into the clinical context forinterpretation. UR OSMOLALITY [id number] 20:03:00* Test Item Value Reference Range Interpretation Comme nts UR OSMOLALITY RANDOM (test c ode = OSMOU) 575 MOS/KG 300-1000 UR OSMOLALITY [id number] 20:02:00* Test Item Value Reference Range Interpretation Comme nts UR OSMOLALITY RANDOM (test c ode = OSMOU) 575 MOS/KG 300-1000 N GLUCOSE [id number] 17:18:00* Test Item Value Reference Range Interpretation Comme nts GLUCOSE BEDSIDE (test code = GLUBED) 122 MG/DL 70-110 H Performed by cer tified box folding machine operator at [facility] GLUCOSE [id number] 12:48:00* Test Item Value Reference Range Interpretation Comme nts GLUCOSE BEDSIDE (test code = GLUBED) 109 MG/DL 70-110 N Performed by cer tified box folding machine operator at [facility] GLUCOSE [id number] 07:53:00* Test Item Value Reference Range Interpretation Comme nts GLUCOSE BEDSIDE (test code = GLUBED) 96 MG/DL 70-110 N Performed by cer tified box folding machine operator at [facility] BASIC METABOLIC [id number] 07:51:00* Test Item Value Reference Range Interpretation [...] code = CA) 7.5 mg/dL 8.0-10.5 L [id number] 07:51:00* Test Item Value Reference Range Interpretation Comme nts MAGNESIUM (test code = MAG) 1.65 mg/dL 1.80-2.40 L CBC W/AUTO [id number] 07:07:00* Test Item Value Reference Range Interpretation [...] (test c ode = MDIFF) NO GLUCOSE [id number] 20:44:00* Test Item Value Reference Range Interpretation Comme nts GLUCOSE BEDSIDE (test code = GLUBED) 116 MG/DL 70-110 H Performed by cer tified box folding machine operator at [facility] GLUCOSE [id number] 18:07:00* Test Item Value Reference Range Interpretation Comme nts GLUCOSE BEDSIDE (test code = GLUBED) 98 MG/DL 70-110 N Performed by cer tified box folding machine operator at [facility] GLUCOSE [id number] 12:23:00* Test Item Value Reference Range Interpretation Comme nts GLUCOSE BEDSIDE (test code = GLUBED) 135 MG/DL 70-110 H Performed by cer tified box folding machine operator at [facility] GLUCOSE [id number] 11:22:00* Test Item Value Reference Range Interpretation Comme nts GLUCOSE BEDSIDE (test code = GLUBED) 104 MG/DL 70-110 N Performed by teto mcdaniel box folding machine operator at [facility] BASIC METABOLIC [id number] 08:12:00* Test Item Value Reference Range Interpretation [...] code = CA) 7.4 mg/dL 8.0-10.5 L [id number] 08:12:00* Test Item Value Reference Range Interpretation Comme nts MAGNESIUM (test code = MAG) 1.48 mg/dL 1.80-2.40 L CBC W/AUTO [id number] 08:09:00* Test Item Value Reference Range Interpretation [...] (test c ode = MDIFF) NO GLUCOSE [id number] 05:56:00* Test Item Value Reference Range Interpretation Comme nts GLUCOSE BEDSIDE (test code = GLUBED) 104 MG/DL 70-110 N Performed by cer tified box folding machine operator at [facility] GLUCOSE [id number] 03:31:00* Test Item Value Reference Range Interpretation Comme nts GLUCOSE BEDSIDE (test code = GLUBED) 129 MG/DL 70-110 H Performed by cer tified box folding machine operator at [facility] GLUCOSE [id number] 12:50:00* Test Item Value Reference Range Interpretation Comme nts GLUCOSE BEDSIDE (test code = GLUBED) 177 MG/DL 70-110 H Performed by cer tified box folding machine operator at [facility] CBC W/AUTO [id number] 10:14:00* Test Item Value Reference Range Interpretation [...] 0.00 x10 3/uL 0.0-0.1 N VITAMIN D [id number] 08:19:00* Test Item Value Reference Range Interpretation Comme nts VITAMIN D 25-HYDROXY (test c ode = VITD25) 25.5 ng/mL 30-100 L Indication for Test: PTH DisorderCOMPREHENSIVE METABOLIC [id number] 08:14:00* Test Item Value Reference Range Interpretation [...] code = ALKP) 62 IUnit/L 20-125 N [id number] 08:14:00* Test Item Value Reference Range Interpretation Comme nts PHOSPHOROUS (test code = PHOS) 2.6 MG/DL 2.5-4.9 N [id number] 08:14:00* Test Item Value Reference Range Interpretation Comme nts MAGNESIUM (test code = MAG) 1.50 mg/dL 1.80-2.40 L GLUCOSE [id number] 07:40:00* Test Item Value Reference Range Interpretation Comme nts GLUCOSE BEDSIDE (test code = GLUBED) 105 MG/DL 70-110 N Performed by cer [employer] box folding machine operator at [facility] GLUCOSE [id number] 17:26:00* Test Item Value Reference Range Interpretation Comme nts GLUCOSE BEDSIDE (test code = GLUBED) 113 MG/DL 70-110 H Performed by [employer] tified box folding machine operator at [facility] PROTHROMBIN [id number] 15:23:00* Test Item Value Reference Range Interpretation Comme [facility] PROTHROMBIN TIME PATIENT (test code = [...] (to prevent recurrent infarct). TSH REFLEX TO [id number] 14:32:00* Test Item [facility] (test code = TSHREFLEX) 1.59 IU/mL 0.42-5.47 N [id number] 14:19:00* Test Item Value Reference Range Interpretation Comme [facility] HGBA1C% (test code = HGBA1C%) 5.5 %A1C 4.8-6.0 N [id number] 14:13:00* Test Item Value Reference Range [facility] MAGNES[facility] (test code = MAG) 1.91 mg/dL 1.80-2.40 N COMPREHENSIVE METABOLIC [id number] 14:13:00* Test Item Value Reference Range Interpretation Comme [facility] SODIUM (test code = NA) 138 [...] = ALKP) 62 IUnit/L 20-125 N GLUCOSE [id number] 12:54:00* Test Item Value Reference Range Interpretation Comme nts GLUCOSE BEDSIDE (test code = GLUBED) 102 MG/DL 70-110 N Performed by cer tified box folding machine operator at [facility] GLUCOSE [id number] 10:14:00* Test Item Value Reference Range Interpretation Comme [facility] GLUCOSE BEDSIDE (test code = GLUBED) 110 MG/DL 70-110 N Performed by [employer] tified box folding machine operator at [facility] CBC W/AUTO [id number] 05:58:00* Test Item Value Reference Range Interpretation [...]
--- NOTE | 2024-03-20 12:55 | ER ---
Nurse's Notes [facility] Name: Mathew Porter Age: 63 yrs Sex: Male : 1960 Arrival Date: 03/20/2024 Time: 11:11 Bed 23 Private MD: Diagnosis: Encounter for replacement of urinary johns cathether Presentation: 03/20 11:38 Chief complaint: Patient states: Needs Johns replaced, last replaced 2 months ago. No ll1 fever or pain. Coronavirus screen: Client denies travel out of the [place] in the last 14 days. At this time, the client does not indicate any symptoms associated with coronavirus-19. Ebola Screen: Patient denies travel to an Ebola-affected area in the 21 days before illness onset. Initial Sepsis Screen: Does the patient meet any 2 criteria? No. Patient's initial sepsis screen is negative. Does the patient have a suspected source of infection? No. Patient's initial sepsis screen is negative. Risk Assessment: Do you want to hurt yourself or someone else? Patient reports no desire to harm self or others. Onset of symptoms was March 20, 2024. 11:38 Method Of Arrival: Ambulatory ll1 11:38 Acuity: JAMILA 4 ll1 Triage Assessment: 12:10 General: Appears in no apparent distress. Behavior is calm, cooperative, appropriate ll1 for age. General: needs new johns. Pain: Denies pain. Historical: - Allergies: 11:37 NKA; ll1 - PMHx: 11:37 Schizophrenia; ll1 - PSHx: 11:37 Urolift; ll1 - Immunization history:: Adult Immunizations up to date. - Social history:: Smoking status: Patient reports the use of cigarette tobacco products, smokes one pack cigarettes per day. Vital Signs: 11:38 BP 136 / 83; Pulse 87; Resp 16; Temp 97.6; Pulse Ox 98% ; Weight 68.04 kg; Height 5 ft. ll1 10 in. ; Pain 0/10; 11:38 Body Mass Index 21.52 (68.04 kg, 177.8 cm) ll1 11:38 Pain Scale: Adult ll1 ED Course: 11:12 Patient arrived in ED. im 11:39 Triage completed. ll1 11:39 Arm band placed on. ll1 11:41 Ashia Robertson PA-C is PHCP. sb4 11:41 Miki Mccracken MD is Attending Physician. sb4 12:52 Lolis Davis, RN is Primary Nurse. iw 12:53 Ricky Navarrete MD is Referral Physician. sb4 Administered Medications: No medications were administered Outcome: 12:54 Discharge ordered by . sb4 13:14 Patient left the ED. iw Signatures: Lolis Davis RN RN iw Brandt Stout RN RN ll1 Ashia Robertson PA-C PA-C sb4 Arlene Rodríguez
--- NOTE | 2024-03-20 12:55 | EDPHYS ---
Physician Documentation [facility] Name: Mathew Porter Age: 63 yrs Sex: Male : 1960 Arrival Date: 03/20/2024 Time: 11:11 Bed 23 Private MD: ED Physician Miki Mccracken HPI: 03/20 13:13 This 63 yrs old Male presents to ER via Ambulatory with complaints of Needs Urinary sb4 Catheter Replacement. 13:13 here requesting indwelling johns catheter replaced because it has been in for 2 months. sb4 no complaints at this time. no fever, pain, hematuria. Historical: - Allergies: 11:37 NKA; ll1 - PMHx: 11:37 Schizophrenia; ll1 - PSHx: 11:37 Urolift; ll1 - Immunization history:: Adult Immunizations up to date. - Social history:: Smoking status: Patient reports the use of cigarette tobacco products, smokes one pack cigarettes per day. ROS: 13:13 Constitutional: Negative for fever, chills, and weight loss, sb4 13:13 : Positive for per HPI, 13:13 All other systems are negative, Exam: 13:13 Constitutional: This is a well developed, well nourished patient who is awake, alert, sb4 and in no acute distress. Head/Face: Normocephalic, atraumatic. Eyes: Extra-ocular motions intact. Periorbital areas with no swelling, redness, or edema. ENT: Mucous membranes moist. Skin: Warm, dry with normal turgor. Normal color with no rashes, no lesions, and no evidence of cellulitis. 13:13 : a johns is noted, urine is clear, Vital Signs: 11:38 BP 136 / 83; Pulse 87; Resp 16; Temp 97.6; Pulse Ox 98% ; Weight 68.04 kg; Height 5 ft. ll1 10 in. ; Pain 0/10; 11:38 Body Mass Index 21.52 (68.04 kg, 177.8 cm) ll1 11:38 Pain Scale: Adult ll1 MDM: 11:41 Medical Screening Exam initiated sb4 13:15 Data reviewed: vital signs, nurses notes, and as a result, I will discharge patient. sb4 Counseling: I had a detailed discussion with the patient and/or guardian regarding the historical points, exam findings, and any diagnostic results supporting the discharge/admit diagnosis, the need for outpatient follow up, a urologist, to return to the emergency department if symptoms worsen or persist or if there are any questions or concerns that arise at home. 03/20 11:41 Order name: Triston. Order: replace johns catheter; Complete Time: 12:53 sb4 Administered Medications: No medications were administered Disposition Summary: 03/20/24 12:54 Discharge Ordered Notes: Location: Home sb4 Problem: new sb4 Symptoms: have improved sb4 Condition: Stable sb4 Diagnosis - Encounter for replacement of urinary johns cathether sb4 Followup: sb4 - With: Ricky Navarrete MD - When: As needed - Reason: Recheck today's complaints, Re-evaluation by your physician Discharge Instructions: - Discharge Summary Sheet sb4 - Indwelling Urinary Catheter Care, Adult, [id number] sb4 Forms: - Patient Portal Instructions sb4 - Leadership Thank You Letter sb4 Signatures: Brandt Stout RN RN ll1 Ashia Robertson PA-C PA-C sb4
[2024-03-20 13:45] VITALS: BP 136/83; TEMP 97.6; O2SAT 98
== END 2024-03-20 13:14 | disposition home or self-care (01) ==
LOC: ER 11:11
DX: Z46.6 Encounter for fitting and adjustment of urinary device (principal)
CPT/HCPCS: 99281

== ENCOUNTER 2024-04-18 09:21 | Emergency (ER) | payer OTHER ==
--- OUTSIDE RECORDS SUMMARY | 2024-04-18 09:26 | XMS REPORT | Continuity of Care Document ---
Author Name Unknown Address [address] [facility] [address] [place] [address] [facility] thconnect Address [address] [facility] [address] [place] [address] Care Team Providers Care Supervisor [employer] Name Role Phone Dave Jones Attending Clinician Salinas Loving I Attending Clinician Lakhwinder Hernandez Admitting Clinician Sal[place] Espinoza I Admitting Clinician Cristi torres Physician, No Primary or Family Admitting Clinic [facility] Unavailable Payers Payer Name Policy Type Policy Number Effective Date Expirati on Date Source Allergies, Adverse Reactions, Alerts Allergy Name Allergy Type Status Severity Reaction(s) Onset Date Inactive Date Treating Clinician Comments Source No Known Allergie s DA Active U 10-16 00:00: 00 [facility] Encounters Start Date/Time End Date/Time Encounter Type Admission Type Attending Clinicians Care Facility Care Department Encounter ID Source 2024-05-25 15:00:00 2024-05-25 15:00:00 Outpatient Dave Jones [facility] DAYS [id number] [facility] 2023-01-21 06:38:00 2023-01-22 20:00:00 Inpatient EM Salinas Alba [facility] MEDI.01 [id number] [facility] 2023-01-06 15:12:00 2023-01-11 21:08:00 Inpatient EM Salinas Alba [facility].01 [id number] [facility] 2022-10-16 05:03:00 2022-10-26 19:41:00 Inpatient EM Salinas Alba [facility] MEDI.01 [id number] [facility] Results Test Description Test Time Test Comments Results Resul t Comments Source - CT ABD PELVIS W/CONT 2023-01-05 8 13:00[facility]00 [facility] 1960 Sex: M Name: OSMAR CASTILLO [facility] : 1960 Age/S: 62 / M [address] [place] [address] Unit #: [id number] Loc: [place] [address] Phys: Sofia Cheng FITNESS TECHNICIAN Acct: [id number] Dis Date: Status: ADM IN PHONE #: [phone] Exam Date: 01/22/2023 1231 FAX #: [phone] Reason: ABD PAIN EXAMS: CPT CODE: [id number] CT ABD PELVIS W/CONT 95541 EXAM: CT abdomen and pelvis with contrast [...] [facility] : 1960 Age/S: 62 / M [address] [place] [address] Unit #: [id number] Loc: [place] [address] Phys: Sofia Cheng FITNESS TECHNICIAN Acct: [id number] Dis Date: Status: ADM IN PHONE #: [phone] Exam Date: 01/22/2023 1231 FAX #: [phone] Reason: ABD PAIN EXAMS: CPT CODE: [id number] CT ABD PELVIS W/CONT 37841 (Continued) abdominal aortic aneurysm. Pelvic organs/bladder: Moderate [...] (1300) t.SDR.BC0 Orig Print D/T: S: 01/22/2023 (5698) PAGE 2 Signed Report [id number] 07:46:00* Test Item Value Reference Range Interpretation Comme nts PHOSPHOROUS (test code = PHOS) 2.4 MG/DL 2.5-4.9 L [id number] 07:46:00* Test Item Value Reference Range Interpretation Comme nts MAGNESIUM (test code = MAG) 1.69 mg/dL 1.6-2.6 N NOTE: NEW NORMAL RANGE CBC W/AUTO [id number] 07:05:00* Test Item Value Reference Range Interpretation [...] 0.00 x10 3/uL 0.0-0.1 N BASIC METABOLIC [id number] 06:08:00* Test Item Value Reference Range Interpretation [...] CA) 8.2 mg/dL 8.0-10.5 N CBC W/AUTO [id number] 05:57:00* Test Item Value Reference Range Interpretation [...] c ode = MDIFF) NO CBC W/AUTO [id number] 08:15:00* Test Item Value Reference Range Interpretation [...] 0.00 x10 3/uL 0.0-0.1 N BASIC METABOLIC [id number] 07:28:00* Test Item Value Reference Range Interpretation [...] CA) 8.6 mg/dL 8.0-10.5 N BASIC METABOLIC [id number] 07:46:00* Test Item Value Reference Range Interpretation [...] CA) 8.7 mg/dL 8.0-10.5 N CBC W/AUTO [id number] 07:34:00* Test Item Value Reference Range Interpretation [...] 0.00 x10 3/uL 0.0-0.1 N CBC W/AUTO [id number] 08:43:00* Test Item Value Reference Range Interpretation [...] c ode = MDIFF) NO BASIC METABOLIC [id number] 07:14:00* Test Item Value Reference Range Interpretation [...] CA) 7.8 mg/dL 8.0-10.5 L CBC W/AUTO [id number] 08:58:00* Test Item Value Reference Range Interpretation [...] c ode = MDIFF) NO BASIC METABOLIC [id number] 08:27:00* Test Item Value Reference Range Interpretation [...] HGBA1C%) 5.1 %A1C 4.8-6.0 N CBC W/AUTO [id number] 08:05:00* Test Item Value Reference Range Interpretation [...] (test code = MDIFF) NO BASIC METABOLIC [id number] 07:46:00* Test Item Value Reference Range Interpretation [...] = LDL) 104.0 mg/dL 0-100 H <100 BKVRGCY90 0-129 NEAR OPTIMAL/ABOVE [id number] UWPIGHBEII628-644 HIGH>FO=616 VERY HIGH*Guidelines provided by the National Cholesterol EducationProgram Adult Treatment Panel III [id number] 07:46:00* Test Item Value Reference Range Interpretation Comme nts PHOSPHOROUS (test code = PHOS) 3.4 MG/DL 2.5-4.9 N [id number] 07:46:00* Test Item Value Reference Range Interpretation Comme nts MAGNESIUM (test code = MAG) 1.69 mg/dL 1.6-2.6 N NOTE: NEW NORMAL RANGE TSH REFLEX TO [id number] 07:46:00* Test Item Value Reference Range Interpretation Comme nts TSH REFLEX TO FT4 (test code = TSHREFLEX) 2.37 IU/mL 0.42-5.47 N LACTIC [id number] 05:48:00* Test Item Value Reference Range Interpretation Comme nts LACTIC ACID (test code = LACT) 1.1 mmol/L 0.4-1.9 N LACTIC ACID [id number] 02:38:00* Test Item Value Reference Range Interpretation Comme nts LACTIC ACID REPEAT (test cod e = LACTR) 0.9 mmol/l 0.4-1.9 N CALLED SEVERINO @01:18 TO REMIND WE NEEDED REPEATLACTIC [id number] 22:36:00* Test Item Value Reference Range Interpretation Comme nts LACTIC ACID (test code = LACT) 2.9 mmol/L 0.4-1.9 H UA RFLX MICR CULT IF [id number] 22:35:00* Test Item Value Reference Range Interpretation [...] Less than 14 days- CT ABD PELVIS [id number] 22:24:00 [facility] 1960 Sex: M Name: OSMAR CASTILLO [facility] : 1960 Age/S: 62 / M [address] [place] [address] Unit #: [id number] Loc: [place] [address] Phys: Vee Horton [facility] Acct: [id number] Dis Date: Status: REG ER PHONE #: [phone] Exam Date: 01/04/2023 0940 FAX #: [phone] Reason: GROSS HEMATURIA EXAMS: CPT CODE: [id number] CT ABD PELVIS W/CONT 16290 H 20 TIME OF STUDY: 01/04/2023 7:55 [...] 1 Signed Report (CONTINUED) Name: OSMAR CASTILLO [facility] : 1960 Age/S: 62 / M [address] [place] [address] Bl Unit #: [id number] Loc: [place] [address] Phys: Vee Horton Acct: [id number] Dis Date: Status: REG ER PHONE #: [phone] Exam Date: 01/04/2023 09 FAX #: [phone] Reason: GROSS HEMATURIA EXAMS: CPT CODE: [id number] CT ABD PELVIS W /CONT 73202 (Continued) at 2224 Reported and signed by: Zia Magaña M.D. CC: Lakhwinder Guillermo MD; Vee Horton; Javier Sullivan MD Technologist:RT Maryam(R); Lesvia Humphries CTDI: DLP: Trnscb Date/Time: 01/04/2023 (2223) t.TUNGR.SI1 Orig Print D/T: S: 01/04/2023 (2226) PAGE 2 Signed ReportCOMPREHENSIVE METABOLIC [id number] 21:07:00* Test Item Value Reference Range Interpretation [...] ALKP) 60 IUnit/L 20-125 N CBC W/AUTO [id number] 20:38:00* Test Item Value Reference Range Interpretation [...] (test code = MDIFF) NO BASIC METABOLIC [id number] 08:30:00* Test Item Value Reference Range Interpretation Comme nts SODIUM (test code = NA) 140 mEq/L 134-147 N POTASSIUM (test code = K) 2.8 mEq/L 3.4-5.0 LL Critical result [place] [address]/16/22Nurse read back resut and tech confirmed it's correct? Y CHLORIDE (test code = CL) 114 mEq/L 100-108 H CARBON DIOXIDE (test code = CO2) 18 mEq/l 21-33 L ANION GAP (test code = GAP) 11 0-20 N GLUCOSE (test code = GLU) 643 mg/dL 70-110 HH [place] [address]/16/22Nurse read back resut and tech [...] 8.0-10.5 LL [place] [address]/16/22Nurse read back result and tech confirmed it's correct? YPreviously reported result: 4.9 mg/dLEdited by: KRISTEN on 10/31/22:532183 0829: CA previously reported as: 4.9 *L mg/dL Critical [place] [address]/16/22 Nurse read back result and tech confirmed it's correct? Y GLUCOSE [id number] 17:27:00* Test Item Value Reference Range Interpretation Comme nts GLUCOSE BEDSIDE (test code = GLUBED) 109 MG/DL 70-110 N Performed by cer tified fig bar machine operator at [facility] GLUCOSE [id number] 12:34:00* Test Item Value Reference Range Interpretation Comme nts GLUCOSE BEDSIDE (test code = GLUBED) 95 MG/DL 70-110 N Performed by cer tified fig bar machine operator at [facility] GLUCOSE [id number] 08:49:00* Test Item Value Reference Range Interpretation Comme nts GLUCOSE BEDSIDE (test code = GLUBED) 117 MG/DL 70-110 H Performed by cer tified fig bar machine operator at [facility] BASIC METABOLIC [id number] 07:57:00* Test Item Value Reference Range Interpretation [...] = CA) 8.1 mg/dL 8.0-10.5 N GLUCOSE [id number] 17:07:00* Test Item Value Reference Range Interpretation Comme nts GLUCOSE BEDSIDE (test code = GLUBED) 127 MG/DL 70-110 H Performed by cer tified fig bar machine operator at [facility] GLUCOSE [id number] 12:26:00* Test Item Value Reference Range Interpretation Comme nts GLUCOSE BEDSIDE (test code = GLUBED) 123 MG/DL 70-110 H Performed by cer tified fig bar machine operator at [facility] GLUCOSE [id number] 07:59:00* Test Item Value Reference Range Interpretation Comme nts GLUCOSE BEDSIDE (test code = GLUBED) 92 MG/DL 70-110 N Performed by cer tified fig bar machine operator at [facility] BASIC METABOLIC [id number] 07:38:00* Test Item Value Reference Range Interpretation [...] CA) 7.8 mg/dL 8.0-10.5 L CBC W/AUTO [id number] 07:27:00* Test Item Value Reference Range Interpretation [...] REQUIRED (test code = MDIFF) NO GLUCOSE [id number] 21:25:00* Test Item Value Reference Range Interpretation Comme nts GLUCOSE BEDSIDE (test code = GLUBED) 154 MG/DL 70-110 H Performed by cer tified fig bar machine operator at [facility] GLUCOSE [id number] 17:43:00* Test Item Value Reference Range Interpretation Comme nts GLUCOSE BEDSIDE (test code = GLUBED) 73 MG/DL 70-110 N Performed by cer tified fig bar machine operator at [facility] GLUCOSE [id number] 10:08:00* Test Item Value Reference Range Interpretation Comme nts GLUCOSE BEDSIDE (test code = GLUBED) 87 MG/DL 70-110 N Performed by cer tified fig bar machine operator at [facility] GLUCOSE [id number] 20:12:00* Test Item Value Reference Range Interpretation Comme nts GLUCOSE BEDSIDE (test code = GLUBED) 139 MG/DL 70-110 H Performed by cer tified fig bar machine operator at [facility] GLUCOSE [id number] 17:32:00* Test Item Value Reference Range Interpretation Comme nts GLUCOSE BEDSIDE (test code = GLUBED) 79 MG/DL 70-110 N Performed by cer tified fig bar machine operator at [facility] GLUCOSE [id number] 12:14:00* Test Item Value Reference Range Interpretation Comme nts GLUCOSE BEDSIDE (test code = GLUBED) 98 MG/DL 70-110 N Performed by cer tified fig bar machine operator at [facility] GLUCOSE [id number] 08:36:00* Test Item Value Reference Range Interpretation Comme nts GLUCOSE BEDSIDE (test code = GLUBED) 92 MG/DL 70-110 N Performed by cer tified fig bar machine operator at [facility] BASIC METABOLIC [id number] 07:50:00* Test Item Value Reference Range Interpretation [...] code = CA) 7.6 mg/dL 8.0-10.5 L [id number] 07:50:00* Test Item Value Reference Range Interpretation Comme nts MAGNESIUM (test code = MAG) 1.53 mg/dL 1.80-2.40 L - CTA CHEST FOR [id number] 00:00:00 [facility] 1960 Sex: M Name: OSMAR CASTILLO [facility] : 1960 Age/S: 62 / M [address] [place] [address] Unit #: [id number] Loc: [place] [address] Phys: Sofia Cheng FITNESS TECHNICIAN Acct: [id number] Dis Date: Status: ADM IN PHONE #: [phone] Exam Date: 10/23/2022 1724 FAX #: [phone] Reason: ELEVATEDD DIMER EXAMS: CPT CODE: [id number] [place] [address] PROCEDURE INFORMATION: Exam: CTA Chest With Contrast Exam date and time: 10/23/2022 5:24 PM Age: 62 years old Clinical indication: Condition or disease; Other: Elevated d dimer TECHNIQUE: Imaging protocol: Computed tomographic angiography ofthe chest with contrast. Exam focused on the [...] pulmonary embolus. Aorta: Unremarkable. No aortic aneurysm. Noaortic dissection. Lungs: Left lower lobe atelectasis. Biapical [...] the visualized splenic flexure compatible with colitis inco mpletely evaluated. Bones/joints: Unremarkable. No acute fracture. Soft tissues: Unremarkable. Other findings: Thoracic spurring. IMPRESSION: 1. No pulmonary embolus. 2. Extensive colonic wall thickening of the visualized splenic PAGE 1 Signed Report (CONTINUED) Name: OSMAR CASTILLO [facility] : 1960 Age/S: 62 / M [address] [place] [address] Unit #: [id number] Loc: [place] [address] Phys: Sofia Cheng NP Acct: [id number] Dis Date: Status: ADM IN PHONE #: [phone] Exam Date: 10/23/2022 1724 FAX #: [phone] Reason: ELEVATED D DIMER EXAMS: CPT CODE: [id number] [place] [address] (Continued) flexure compatible with colitis incompletely evaluated. [...] by: Hayden Rg M.D. CC: Sofia Cheng FITNESS TECHNICIAN; Salinas Dukes MD Technologist:Latoya Pérez, RT(R)(CT); . CTDI: DLP: Trnscb Date/Time: 10/23/2022 (2012) t.SDR.JT18 Orig Print D/T: S: 10/23/2022 (2012) PAGE 2 Signed ReportGLUCOSE [id number] 20:23:00* Test Item Value Reference Range Interpretation Comme nts GLUCOSE BEDSIDE (test code = GLUBED) 123 MG/DL 70-110 H [facility]formed by [facility] fig bar machine operator at [facility] GLUCOSE [id number] 17:34:00* Test Item Value Reference Range Interpretation Comme nts GLUCOSE BEDSIDE (test code = GLUBED) 132 MG/DL 70-110 H Performed by [facility] fig bar machine operator at [facility] GLUCOSE [id number] 11:57:00* Test Item Value Reference Range Interpretation Comme nts GLUCOSE BEDSIDE (test code = GLUBED) 118 MG/DL 70-110 H Performed by [facility] fig bar machine operator at [facility] GLUCOSE [id number] 08:22:00* Test Item Value Reference Range Interpretation Comme nts GLUCOSE BEDSIDE (test code = GLUBED) 100 MG/DL 70-110 N Performed by [facility] fig bar machine operator at [facility] BASIC METABOLIC [id number] 08:05:00* Test Item Value Reference Range Interpretation [...] code = CA) 7.8 mg/dL 8.0-10.5 L [id number] 08:05:00* Test Item Value Reference Range Interpretation Comme nts MAGNESIUM (test code = MAG) 1.72 mg/dL 1.80-2.40 L GLUCOSE [id number] 21:10:00* Test Item Value Reference Range Interpretation Comme nts GLUCOSE BEDSIDE (test code = GLUBED) 148 MG/DL 70-110 H Performed by cer tified fig bar machine operator at [facility] GLUCOSE [id number] 17:29:00* Test Item Value Reference Range Interpretation Comme nts GLUCOSE BEDSIDE (test code = GLUBED) 102 MG/DL 70-110 N Performed by cer tified fig bar machine operator at [facility] GLUCOSE [id number] 11:54:00* Test Item Value Reference Range Interpretation Comme nts GLUCOSE BEDSIDE (test code = GLUBED) 104 MG/DL 70-110 N Performed by cer tified fig bar machine operator at [facility] CBC W/MANUAL [id number] 10:35:00* Test Item Value Reference Range Interpretation [...] (test code = PLTMORPH) LARGE PLATELETS GLUCOSE [id number] 07:57:00* Test Item Value Reference Range Interpretation Comme nts GLUCOSE BEDSIDE (test code = GLUBED) 95 MG/DL 70-110 N Performed by teto mcdaniel fig bar machine operator at [facility] C REACTIVE [id number] 07:48:00* Test Item Value Reference Range Interpretation Comme nts C REACTIVE PROTEIN (test cod e = CRP) 36.0 mg/L <10.0 H BASIC METABOLIC [id number] 07:40:00* Test Item Value Reference Range Interpretation [...] code = CA) 7.3 mg/dL 8.0-10.5 L [id number] 07:40:00* Test Item Value Reference Range Interpretation Comme nts MAGNESIUM (test code = MAG) 1.50 mg/dL 1.80-2.40 L [id number] 07:04:00* Test Item Value Reference Range Interpretation Comme nts D-DIMER (test code = DDIMER) 5949 ng/mlFEU See_Comment HH Critical result called to Brigido RUIZLAB.JJ1 at 0710/21/22Nurse read back result and tech confirmed it's correct? YESTHROMBOSIS AND/OR PULMONARY EMBOLISM AND THE CLINICAL CUT- OFF VALUE FOR EXCLUSION (500 ng/mL FEU) OF THESE CONDITIONSIS VALIDATED BY THE WELL SITE DRILLING ENGINEER OF THE METHOD. A NEGATIVE D-DIMER RESULT [...] this result as normal/abnormal. - DUP VEIN [id number] 00:00:00 [facility] [place] : 1960 Sex: M Name: OSMRA CASTILLO S[facility] : 1960 Age/S: 62 / M [address] [place] [address] Blvd Unit #: [id number] Loc: [place] [address] Phys: Skip Jaffe MD Acct: [id number] Dis Date: Status: ADM IN PHONE #: [phone] Exam Date: 10/21/2022820 FAX #: [phone] Reason: R/o DVT EXAMS: CPT CODE: [id number] DUP VEIN ASAEL 40587 PROCEDURE INFORMATION: Exam: US Duplex Lower Extremity [...] MD; Salinas Dukes MD Technologist: Yesica Baker [facility] Date/Time: 10/21/2022 (911) t.SDR.AB61 Orig Print D/T: S: 10/21/2022 (911) Probe: PAGE 1 Signed Report GLUCOSE [id number] 20:40:00* Test Item Value Reference Range Interpretation Comme [facility] GLUCOSE BEDSIDE (test code = GLUBED) 148 MG/DL 70-110 H Performed by cer tified fig bar machine operator at [facility] GLUCOSE [id number] 16:46:00* Test Item Value Reference Range Interpretation Comme [facility] GLUCOSE BEDSIDE (test code = GLUBED) 122 MG/DL 70-110 H Performed by cer tified fig bar machine operator at [facility] TROP-I HIGH [id number] 15:04:00* Test Item Value Reference Range Interpretation [...] URL. These results were obtained using [employer]ellOrnis IM TnIHreagent. Results from different methodologies should not becompared to one another as quantitative results and URLs mayvary by method. BASIC METABOLIC [id number] 15:04:00* Test Item Value Reference Range Interpretation [...] CA) 7.1 mg/dL 8.0-10.5 L TROP-I HIGH [id number] 10:07:00* Test Item Value Reference Range Interpretation [...] the URL. These results were obtained using [employer]ell[employer]nis IM TnIHreagent. Results from different methodologies should not becompared to one another as quantitative results and URLs mayvary by method. CBC W/AUTO [id number] 09:54:00* Test Item Value Reference Range Interpretation [...] (test code = MDIFF) NO TROP-I HIGH [id number] 09:24:00* Test Item Value Reference Range Interpretation [...] the URL. These results were obtained using [employer] IM TnIHreagent. Results from different methodologies should not becompared to one another as quantitative results and URLs mayvary by method. GLUCOSE [id number] 08:49:00* Test Item Value Reference Range Interpretation Comme nts GLUCOSE BEDSIDE (test code = GLUBED) 102 MG/DL 70-110 N Performed by cer violeta fig bar machine operator at [facility] COMPREHENSIVE METABOLIC [id number] 02:08:00* Test Item Value Reference Range Interpretation [...] code = ALKP) 47 IUnit/L 20-125 N [id number] 02:08:00* Test Item Value Reference Range Interpretation Comme [facility] LIPASE (test code = LIP) 57 U/L 13-57 N PROTHROMBIN [id number] 02:05:00* Test Item Value Reference Range Interpretation [...] Infarction (to prevent recurrent infarct). THROMBOPLASTIN TIME [id number] 02:05:00* Test Item Value Reference Range Interpretation [facility] THROMB[facility] TIME PARTIAL (test code = PTT) 26.1 Seconds 25.0-39.5 N Therapeutic Rang e: 50.4 - 88.3 Seconds Effective 07/21/2018 LACTIC [id number] 01:59:00* Test Item Value Reference Range Interpretation [facility] LACTIC ACID (test code = LACT) 1.1 mmol/L 0.4-1.9 N CBC W/AUTO [id number] 01:51:00* Test Item Value Reference Range Interpretation Comme [facility] WHITE BLOOD CELL (test code = [...] = MDIFF) NO - XR CHEST 1 [id number] 00:00:00 [facility] 1960 Sex: M FAX: Sofia Cheng NP [phone] [place]: St: [facility] FAX: Salinas Callahan I [phone] Name: ANNA[facility]MAR [facility] [place] : 1960 Age/S: 62/M [address] [place] [address] Unit #: [id number] Loc:G.6630 [place] [address] Phys: Sofia Cheng NP Acct: [id number] Dis Date: Status: ADM IN PHONE#: [phone] Exam Date: 10/20/2022106 FAX #: [phone] Reason: Sepsis EXAMS: CPT CODE: [id number] XR CHEST 1 V 14234 PROCEDURE INFORMATION: Exam: XR Chest Exam date [...] by: Reinaldo Jacobs M.D. CC: Sofia Cheng FITNESS TECHNICIAN; Salinas Dukes MD Technologist: Xochitl Dubon RT(R) Trnscrd Date/Time/By: 10/20/2022 (213) : By: [id number] Orig Print D/T: S: 10/20/2022 (5) PAGE 1 Signed ReportGLUCOSE [id number] 21:00:00* Test Item Value Reference Range Interpretation Comme nts GLUCOSE BEDSIDE (test code = GLUBED) 135 MG/DL 70-110 H Performed by cer violeta fig bar machine operator at [facility] URINALYSIS [id number] 20:03:00* Test Item Value Reference Range Interpretation [...] MUCU) 1+ /LPF NONE SEEN UR SODIUM [id number] 20:03:00* Test Item Value Reference Range Interpretation Comme nts UR SODIUM RANDOM (test code = ALPHONSE) 102 MEQ/L The Reference Ra nge and Method Performance specificationshave not been established for this fluid. The test resultshould be correlated into the clinical context forinterpretation. UR PROTEIN [id number] 20:03:00* Test Item Value Reference Range Interpretation Comme nts UR PROTEIN RANDOM (test code = PROTU) 79 mg/dL UR CREATININE [id number] 20:03:00* Test Item Value Reference Range Interpretation Comme nts UR CREATININE RANDOM (test code = CREATU) 111.9 mg/dL The Reference Ra nge and Method Performance specificationshave not been established for this fluid. The test resultshould be correlated into the clinical context forinterpretation. UR OSMOLALITY [id number] 20:03:00* Test Item Value Reference Range Interpretation Comme nts UR OSMOLALITY RANDOM (test c ode = OSMOU) 575 MOS/KG 300-1000 UR OSMOLALITY [id number] 20:02:00* Test Item Value Reference Range Interpretation Comme nts UR OSMOLALITY RANDOM (test c ode = OSMOU) 575 MOS/KG 300-1000 N GLUCOSE [id number] 17:18:00* Test Item Value Reference Range Interpretation Comme nts GLUCOSE BEDSIDE (test code = GLUBED) 122 MG/DL 70-110 H Performed by cer tified fig bar machine operator at [facility] GLUCOSE [id number] 12:48:00* Test Item Value Reference Range Interpretation Comme nts GLUCOSE BEDSIDE (test code = GLUBED) 109 MG/DL 70-110 N Performed by cer tified fig bar machine operator at [facility] GLUCOSE [id number] 07:53:00* Test Item Value Reference Range Interpretation Comme nts GLUCOSE BEDSIDE (test code = GLUBED) 96 MG/DL 70-110 N Performed by cer tified fig bar machine operator at [facility] BASIC METABOLIC [id number] 07:51:00* Test Item Value Reference Range Interpretation [...] code = CA) 7.5 mg/dL 8.0-10.5 L [id number] 07:51:00* Test Item Value Reference Range Interpretation Comme nts MAGNESIUM (test code = MAG) 1.65 mg/dL 1.80-2.40 L CBC W/AUTO [id number] 07:07:00* Test Item Value Reference Range Interpretation [...] (test c ode = MDIFF) NO GLUCOSE [id number] 20:44:00* Test Item Value Reference Range Interpretation Comme nts GLUCOSE BEDSIDE (test code = GLUBED) 116 MG/DL 70-110 H Performed by cer tified fig bar machine operator at [facility] GLUCOSE [id number] 18:07:00* Test Item Value Reference Range Interpretation Comme nts GLUCOSE BEDSIDE (test code = GLUBED) 98 MG/DL 70-110 N Performed by cer tified fig bar machine operator at [facility] GLUCOSE [id number] 12:23:00* Test Item Value Reference Range Interpretation Comme nts GLUCOSE BEDSIDE (test code = GLUBED) 135 MG/DL 70-110 H Performed by cer tified fig bar machine operator at [facility] GLUCOSE [id number] 11:22:00* Test Item Value Reference Range Interpretation Comme nts GLUCOSE BEDSIDE (test code = GLUBED) 104 MG/DL 70-110 N Performed by cer tified fig bar machine operator at [facility] BASIC METABOLIC [id number] 08:12:00* Test Item Value Reference Range Interpretation [...] code = CA) 7.4 mg/dL 8.0-10.5 L [id number] 08:12:00* Test Item Value Reference Range Interpretation Comme nts MAGNESIUM (test code = MAG) 1.48 mg/dL 1.80-2.40 L CBC W/AUTO [id number] 08:09:00* Test Item Value Reference Range Interpretation [...] (test c ode = MDIFF) NO GLUCOSE [id number] 05:56:00* Test Item Value Reference Range Interpretation Comme nts GLUCOSE BEDSIDE (test code = GLUBED) 104 MG/DL 70-110 N Performed by cer tified fig bar machine operator at [facility] GLUCOSE [id number] 03:31:00* Test Item Value Reference Range Interpretation Comme nts GLUCOSE BEDSIDE (test code = GLUBED) 129 MG/DL 70-110 H Performed by cer tified fig bar machine operator at [facility] GLUCOSE [id number] 12:50:00* Test Item Value Reference Range Interpretation Comme nts GLUCOSE BEDSIDE (test code = GLUBED) 177 MG/DL 70-110 H Performed by cer tified fig bar machine operator at [facility] CBC W/AUTO [id number] 10:14:00* Test Item Value Reference Range Interpretation [...] 0.00 x10 3/uL 0.0-0.1 N VITAMIN D [id number] 08:19:00* Test Item Value Reference Range Interpretation Comme nts VITAMIN D 25-HYDROXY (test c ode = VITD25) 25.5 ng/mL 30-100 L Indication for Test: PTH DisorderCOMPREHENSIVE METABOLIC [id number] 08:14:00* Test Item Value Reference Range Interpretation [...] code = ALKP) 62 IUnit/L 20-125 N [id number] 08:14:00* Test Item Value Reference Range Interpretation Comme nts PHOSPHOROUS (test code = PHOS) 2.6 MG/DL 2.5-4.9 N [id number] 08:14:00* Test Item Value Reference Range Interpretation Comme nts MAGNESIUM (test code = MAG) 1.50 mg/dL 1.80-2.40 L GLUCOSE [id number] 07:40:00* Test Item Value Reference Range Interpretation Comme nts GLUCOSE BEDSIDE (test code = GLUBED) 105 MG/DL 70-110 N Performed by cer tified fig bar machine operator at [facility] GLUCOSE [id number] 17:26:00* Test Item Value Reference Range Interpretation Comme nts GLUCOSE BEDSIDE (test code = GLUBED) 113 MG/DL 70-110 H Performed by cer tified fig bar machine operator at [facility] PROTHROMBIN [id number] 15:23:00* Test Item Value Reference Range Interpretation [...] (to prevent recurrent infarct). TSH REFLEX TO [id number] 14:32:00* Test Item Value Reference Range Interpretation Comme [facility] TSH REFLEX TO FT4 (test code = TSHREFLEX) 1.59 IU/mL 0.42-5.47 N [id number] 14:19:00* Test Item Value Reference Range Interpretation Comme nts HGBA1C% (test code = HGBA1C%) 5.5 %A1C 4.8-6.0 N [id number] 14:13:00* Test Item Value Reference Range Interpretation Comme nts MAGNESIUM (test code = MAG) 1.91 mg/dL 1.80-2.40 N COMPREHENSIVE METABOLIC [id number] 14:13:00* Test Item Value Reference Range Interpretation [...] = ALKP) 62 IUnit/L 20-125 N GLUCOSE [id number] 12:54:00* Test Item Value Reference Range Interpretation Comme nts GLUCOSE BEDSIDE (test code = GLUBED) 102 MG/DL 70-110 N Performed by cer tified fig bar machine operator at [facility] GLUCOSE [id number] 10:14:00* Test Item Value Reference Range Interpretation Comme nts GLUCOSE BEDSIDE (test code = GLUBED) 110 MG/DL 70-110 N Performed by [facility] [employer] fig bar machine operator at [facility] CBC W/AUTO [id number] 05:58:00* Test Item Value Reference Range Interpretation [...]
--- NOTE | 2024-04-18 09:41 | ER ---
Nurse's Notes [facility] Name: Mathew Porter Age: 63 yrs Sex: Male : 1960 Arrival Date: 04/18/2024 Time: 09:21 Bed 8 Private MD: Diagnosis: Other mechanical complication of urinary (indwelling) catheter Presentation: 04/18 09:33 Chief complaint: Patient states: Would like his Johns replaced. Coronavirus screen: ll1 Client denies travel out of the [place] in the last 14 days. At this time, the client does not indicate any symptoms associated with coronavirus-19. Ebola Screen: Patient denies travel to an Ebola-affected area in the 21 days before illness onset. Initial Sepsis Screen: Does the patient meet any 2 criteria? No. Patient's initial sepsis screen is negative. Does the patient have a suspected source of infection? No. Patient's initial sepsis screen is negative. Risk Assessment: Do you want to hurt yourself or someone else? Patient reports no desire to harm self or others. Onset of symptoms was April 18, 2024. 09:33 Method Of Arrival: Ambulatory ll1 09:33 Acuity: JAMILA 4 ll1 Triage Assessment: 09:34 General: Appears in no apparent distress. Behavior is calm, cooperative, appropriate ll1 for age. Pain: Denies pain. : Reports wants johns replaced. Historical: - Allergies: 09:29 NKA; ll1 - PMHx: 09:29 Schizophrenia; ll1 - PSHx: 09:29 Urolift; ll1 - Immunization history:: Adult Immunizations up to date. - Infectious Disease History:: Denies. - Social history:: Smoking status: Patient reports the use of cigarette tobacco products, smokes one pack cigarettes per day. - Family history:: not pertinent. - Hospitalizations: : No recent hospitalization is reported. Screenin:[facility] ED Fall Risk Assessment (Adult) History of falling in the last 3 months, ll1 including since admission No falls in past 3 months (0 pts) Confusion or Disorientation No (0 pts) Intoxicated or Sedated No (0 pts) Impaired Gait No (0 pts) Mobility Assist Device Used No (0 pt) Altered Elimination No (0 pt) Score/Fall Risk Level 0 - 2 = Low Risk Maintained a safe environment, Hourly rounding (assess needs \T\ fall precautionary measures) done. Abuse screen: Denies threats or abuse. Nutritional screening: No deficits noted. Tuberculosis screening: No symptoms or risk factors identified. Assessment: :52 Reassessment: No changes from previously documented assessment. Patient and/or family ll1 updated on plan of care and expected duration. Pain level reassessed. Patient is alert, oriented x 3, equal unlabored respirations, skin warm/dry/pink. gait steady out of ED. Vital Signs: 09:33 BP 120 / 89; Pulse 94; Resp 18; Temp 97.5; Pulse Ox 98% on R/A; Weight 68.04 kg; Height ll1 5 ft. 10 in. ; Pain 0/10; 09:33 Body Mass Index 21.52 (68.04 kg, 177.8 cm) ll1 09:33 Pain Scale: Adult ll ED Course: 09:24 Patient arrived in ED. mr 09:25 Octavio Perez MD is Attending Physician. rn 09:29 Arm band placed on Patient placed in an exam room, on a stretcher. ll1 09:33 Brandt Stout RN is Primary Nurse. ll1 09:34 Triage completed. ll1 09:45 No provider procedures requiring assistance completed. Johns cath inserted, using 1 sterile technique, 18 Fr., by va, balloon inflated, to gravity drainage, returned hari urine. Patient tolerated well. Inserted saline lock:. 09:52 Patient has correct armband on for positive identification. Bed in low position. 1 Provided Education on: ER procedures and process. :52 Patient did not have IV access during this emergency room visit. 1 Administered Medications: No medications were administered Medication: :52 VIS not applicable for this client. 1 Outcome: 09:41 Discharge ordered by . rn 09:52 Discharged to home ambulatory, [facility] :52 Condition: stable :52 Discharge instructions given to patient, Instructed on discharge instructions, follow up and referral plans. Demonstrated understanding of instructions, follow-up care, :52 Patient left the ED. 1 Signatures: Rylee Moe, Reg Reg mr Octavio Perez MD MD rn Lewis, Lynsay, RN RN ll1
--- NOTE | 2024-04-18 09:42 | EDPHYS ---
Physician Documentation [facility] Name: Mathew Porter Age: 63 yrs Sex: Male : 1960 Arrival Date: 04/18/2024 Time: 09:21 Bed 8 Private MD: ED Physician Octavio Perez HPI: 04/18 09:39 This 63 yrs old Male presents to ER via Ambulatory with complaints of Problem With rn Urinary Catheter. 09:39 The patient presents with a Mercer catheter problem, Patient reports here for rn replacement of Mercer catheter. States needs to get it replaced every month and now 2 weeks late. No acute problems. No fever or chills. Does not feel like has infection. No abdominal pain. Still draining okay.. The patient has experienced similar episodes in the past. The patient has not recently seen a physician. Historical: - Allergies: 09:29 NKA; ll1 - PMHx: 09:29 Schizophrenia; ll1 - PSHx: 09:29 Urolift; ll1 - Immunization history:: Adult Immunizations up to date. - Infectious Disease History:: Denies. - Social history:: Smoking status: Patient reports the use of cigarette tobacco products, smokes one pack cigarettes per day. - Family history:: not pertinent. - Hospitalizations: : No recent hospitalization is reported. ROS: 09:39 Constitutional: Negative for fever, chills, and weight loss, Cardiovascular: Negative rn for chest pain, palpitations, and edema, Respiratory: Negative for shortness of breath, cough, wheezing, and pleuritic chest pain, Abdomen/GI: Negative for abdominal pain, nausea, vomiting, diarrhea, and constipation, Back: Negative for injury and pain, : Negative for injury, bleeding, discharge, and swelling, MS/Extremity: Negative for injury and deformity, Exam: 09:39 Constitutional: This is a well developed, well nourished patient who is awake, alert, rn and in no acute distress. Cardiovascular: Regular rate and rhythm . No pulse deficits. Respiratory: No increased work of breathing, no retractions or nasal flaring. Abdomen/GI: Soft, non-tender Male : Mercer catheter in place. Slightly dirty tubing and bag. No hematuria. Light yellow urine in bag and draining actively. Vital Signs: 09:33 BP 120 / 89; Pulse 94; Resp 18; Temp 97.5; Pulse Ox 98% on R/A; Weight 68.04 kg; Height ll1 5 ft. 10 in. ; Pain 0/10; 09:33 Body Mass Index 21.52 (68.04 kg, 177.8 cm) ll1 09:33 Pain Scale: Adult ll1 MDM: 09:25 Medical Screening Exam initiated rn 09:39 Differential diagnosis: Mercer catheter problem. Data reviewed: vital signs, nurses rn notes, and as a result, I will discharge patient. Counseling: I had a detailed discussion with the patient and/or guardian regarding the historical points, exam findings, and any diagnostic results supporting the discharge/admit diagnosis, the need for outpatient follow up, to return to the emergency department if symptoms worsen or persist or if there are any questions or concerns that arise at home. Special discussion: I discussed with the patient/guardian in detail that at this point there is no indication for admission to the hospital. It is understood, however, that if the symptoms persist or worsen the patient needs to return immediately for re-evaluation. 04/18 09:38 Order name: Mercer; Complete Time: 09:47 rn Administered Medications: No medications were administered Disposition Summary: 04/18/24 09:41 Discharge Ordered Notes: Location: Home rn Problem: new rn Symptoms: have improved rn Condition: Stable rn Diagnosis - Other mechanical complication of urinary (indwelling) catheter rn Followup: rn - With: Private Physician - When: As needed - Reason: Recheck today's complaints, Re-evaluation by your physician Discharge Instructions: - Discharge Summary Sheet rn - Indwelling Urinary Catheter Care, Adult rn Forms: - Medication Reconciliation Form rn - Antibiotic varnish finisher - Prescription Opioid Use rn - Patient Portal Instructions rn - Leadership Thank You Letter rn Signatures: Octavio Perez MD MD rn Lewis, Lynsay, RN RN 1
[2024-04-20 15:59] VITALS: BP 120/89; TEMP 97.5; O2SAT 98
== END 2024-04-18 09:52 | disposition home or self-care (01) ==
LOC: ER 09:21
DX: T83.098A Other mechanical complication of other urinary catheter, initial encounter (principal); F17.210 Nicotine dependence, cigarettes, uncomplicated
CPT/HCPCS: 51702; 99284

== ENCOUNTER 2024-05-25 17:02 | Emergency (ER) | payer OTHER ==
--- NOTE | 2024-05-25 18:33 | EDPHYS ---
Physician Documentation [facility] Name: Mathew Porter Age: 63 yrs Sex: Male : 1960 Arrival Date: 05/25/2024 Time: 17:02 Bed IW10 Private MD: ED Physician Hudson Muñoz HPI: 05/25 18:33 This 63 yrs old Male presents to ER via Unassigned with complaints of leaking johns. kb 18:33 Patient is a 63-year-old male who presents for leaking urinary catheter that started kb yesterday. States he has a Johns at all times and normally gets it changed out once a month. Last changed in April and he would like the entire system changed out today.. ROS: 18:32 Constitutional: As per HPI kb Exam: 18:32 Constitutional: This is a well developed, well nourished patient who is awake, alert, kb and in no acute distress. Head/Face: Normocephalic, atraumatic. ENT: Moist Mucous membranes Cardiovascular: Regular rate Respiratory: Respirations even and unlabored. No increased work of breathing. Talking in full sentences Abdomen/GI: Soft, non-tender. No distention Skin: Warm, dry with normal turgor. Normal color. MS/ Extremity: Pulses equal, no cyanosis. Neurovascular intact. Full, normal range of motion. Neuro: Awake and alert, GCS 15, oriented to person, place, time, and situation. MDM: 18:31 Medical Screening Exam initiated kb 18:32 Differential diagnosis: Johns catheter problem. Data reviewed: vital signs, nurses kb notes. Counseling: I had a detailed discussion with the patient and/or guardian regarding the historical points, exam findings, and any diagnostic results supporting the discharge/admit diagnosis, the need for outpatient follow up, a family practitioner, to return to the emergency department if symptoms worsen or persist or if there are any questions or concerns that arise at home. 05/25 18:33 Order name: Johns kaz Administered Medications: No medications were administered Disposition Summary: 05/25/24 18:32 Discharge Ordered Notes: Location: Home kb Condition: Stable kb Diagnosis - Leakage of urinary (indwelling) catheter kb Followup: kb - With: Emergency Department - When: As needed - Reason: Worsening of condition Followup: kb - With: Private Physician - When: 2 - 3 days - Reason: Recheck today's complaints, Continuance of care, Re-evaluation by your physician Discharge Instructions: - Discharge Summary Sheet kb - Indwelling Urinary Catheter Care, Adult, [id number] kb Forms: - Medication Reconciliation Form kb - Antibiotic Education kb - Prescription Opioid Use kb - Patient Portal Instructions kb - Leadership Thank You Letter kb Signatures: Brit Zapata FNP-C FNP-Ckb
--- NOTE | 2024-05-25 18:45 | ER ---
Nurse's Notes [facility] Name: Mathew Porter Age: 63 yrs Sex: Male : 1960 Arrival Date: 05/25/2024 Time: 17:02 Bed IW10 Private MD: Diagnosis: Leakage of urinary (indwelling) catheter Assessment: 05/25 18:43 Reassessment: see downtime paper charting. iw ED Course: 18:31 Patient arrived in ED. kb 18:31 [facility]C [facility] kb 18:31 Hudson Muñoz MD is Attending Physician. kb Administered Medications: No medications were administered Outcome: 18:32 Discharge ordered by MD. kb 18:43 Discharged to home ambulatory, iw 18:43 Condition: good 18:43 Discharge instructions given to patient, Instructed on follow up and referral plans. Demonstrated understanding of instructions, 18:44 Patient left the ED. iw Signatures: Brit Zapata FNP-C FNP-Ckb Williams, Irene RN RN iw
== END 2024-05-25 18:44 | disposition home or self-care (01) ==
LOC: ER 17:02
DX: T83.038A Leakage of other urinary catheter, initial encounter (principal)
CPT/HCPCS: 99282

== ENCOUNTER 2024-06-19 13:20 | Emergency (ER) | payer OTHER ==
--- OUTSIDE RECORDS SUMMARY | 2024-06-19 13:25 | XMS REPORT | Continuity of Care Document ---
Author Name Unknown Address [address] [facility] [address] [place] [address] [facility] Address [address] [facility] [address] [place] [address] Care Team Providers Care Accounting Clerk Name Role Phone Salinas Alba I [...] s DA Active U 10-16 00:00: 00 [facility] Encounters Start Date/Time End Date/Time Encounter Type Admission Type Attending Clinicians Care Facility Care Department Encounter ID Source 2023-01-21 06:38:00 2023-01-22 20:00:00 Inpatient EM Sal[facility] Alba [facility] [id number] [facility] 2023-01-06 15:12:00 2023-01-11 21:08:00 Inpatient EM [facility] Alba [facility] [id number] [facility] 2022-10-16 05:03:00 2022-10-26 19:41:00 Inpatient EM [facility] Alba [facility] [id number] [facility] Results Test Description Test Time Test Comments Results Resul t Comments Source - CT ABD PELVIS W/CONT 2023-01-05 8 13:00:00 [facility] 1960 Sex: M Name: MATHEW CASTILLO [facility] : 1960 Age/S: 62 / M [address] [place] [address] Blvd Unit #: [id number] Loc: [place] [address] Phys: Sofia Cheng LIFT DRIVER Acct: [id number] Dis Date: Status: ADM IN PHONE #: [phone] Exam Date: 01/22/2023 1231 FAX #: [phone] Reason: ABD PAIN EXAMS: CPT CODE: [id number] CT ABD PELVIS W/CONT 22492 EXAM: CT abdomen and pelvis with contrast [...] 1 Signed Report (CONTINUED) Name: MATHEW CASTILLO [facility] : 1960 Age/S: 62 / M [address] [place] [address] Blvd Unit #: [id number] Loc: [place] [address] Phys: Sofia Cheng LIFT DRIVER Acct: [id number] Dis Date: Status: ADM IN PHONE #: [phone] Exam Date: 01/22/2023 1231 FAX #: [phone] Reason: ABD PAIN EXAMS: CPT CODE: [id number] CT ABD PELVIS W/CONT 65763 (Continued) abdominal aortic aneurysm. Pelvic organs/bladder: Moderate [...] M.D. CC: Lakhwinder Guillermo MD; Sofia Cheng LIFT DRIVER; Salinas Dukes MD Technologist:Rick Moran Jr, RT(R)(CT) CTDI: DLP: Trnscb Date/Time: 01/22/2023 (1300) t.SDR.BC0 Orig Print D/T: S: 01/22/2023 (2758) PAGE 2 Signed Report [id number] 07:46:00* Test Item Value Reference Range Interpretation Comme nts PHOSPHOROUS (test code = PHOS) 2.4 MG/DL 2.5-4.9 L [id number] 07:46:00* Test Item Value Reference Range Interpretation Comme nts MAGNESIUM (test code = MAG) 1.69 mg/dL 1.6-2.6 N NOTE: NEW NORMAL RANGE CBC W/AUTO [id number] 07:05:00* Test Item Value Reference Range Interpretation [...] 0.00 x10 3/uL 0.0-0.1 N BASIC METABOLIC [id number] 06:08:00* Test Item Value Reference Range Interpretation [...] CA) 8.2 mg/dL 8.0-10.5 N CBC W/AUTO [id number] 05:57:00* Test Item Value Reference Range Interpretation [...] c ode = MDIFF) NO CBC W/AUTO [id number] 08:15:00* Test Item Value Reference Range Interpretation [...] 0.00 x10 3/uL 0.0-0.1 N BASIC METABOLIC [id number] 07:28:00* Test Item Value Reference Range Interpretation [...] CA) 8.6 mg/dL 8.0-10.5 N BASIC METABOLIC [id number] 07:46:00* Test Item Value Reference Range Interpretation [...] CA) 8.7 mg/dL 8.0-10.5 N CBC W/AUTO [id number] 07:34:00* Test Item Value Reference Range Interpretation [...] 0.00 x10 3/uL 0.0-0.1 N CBC W/AUTO [id number] 08:43:00* Test Item Value Reference Range Interpretation [...] c ode = MDIFF) NO BASIC METABOLIC [id number] 07:14:00* Test Item Value Reference Range Interpretation [...] CA) 7.8 mg/dL 8.0-10.5 L CBC W/AUTO [id number] 08:58:00* Test Item Value Reference Range Interpretation [...] c ode = MDIFF) NO BASIC METABOLIC [id number] 08:27:00* Test Item Value Reference Range Interpretation [...] HGBA1C%) 5.1 %A1C 4.8-6.0 N CBC W/AUTO [id number] 08:05:00* Test Item Value Reference Range Interpretation [...] (test code = MDIFF) NO BASIC METABOLIC [id number] 07:46:00* Test Item Value Reference Range Interpretation [...] = LDL) 104.0 mg/dL 0-100 H <100 OHZYMEW75 0-129 NEAR OPTIMAL/ABOVE [id number] [id number] HIGH>DR=750 VERY HIGH*Guidelines provided by the National Cholesterol EducationProgram Adult Treatment Panel III [id number] 07:46:00* Test Item Value Reference Range Interpretation Comme nts PHOSPHOROUS (test code = PHOS) 3.4 MG/DL 2.5-4.9 N [id number] 07:46:00* Test Item Value Reference Range Interpretation Comme nts MAGNESIUM (test code = MAG) 1.69 mg/dL 1.6-2.6 N NOTE: NEW NORMAL RANGE TSH REFLEX TO [id number] 07:46:00* Test Item Value Reference Range Interpretation Comme nts TSH REFLEX TO FT4 (test code = TSHREFLEX) 2.37 IU/mL 0.42-5.47 N LACTIC [id number] 05:48:00* Test Item Value Reference Range Interpretation Comme nts LACTIC ACID (test code = LACT) 1.1 mmol/L 0.4-1.9 N LACTIC ACID [id number] 02:38:00* Test Item Value Reference Range Interpretation Comme nts LACTIC ACID REPEAT (test cod e = LACTR) 0.9 mmol/l 0.4-1.9 N CALLED SEVERINO @01:18 TO REMIND WE NEEDED REPEATLACTIC [id number] 22:36:00* Test Item Value Reference Range Interpretation Comme nts LACTIC ACID (test code = LACT) 2.9 mmol/L 0.4-1.9 H UA RFLX MICR CULT IF [id number] 22:35:00* Test Item Value Reference Range Interpretation [...] Less than 14 days- CT ABD PELVIS W/[id number] 22:24:00 [facility] : 1960 Sex: M Name: MATHEW CASTILLO [facility] : 1960 Age/S: 62 / M [address] [place] [address] Blvd Unit #: [id number] Loc: [place] [address] Phys: Vee Horton Acct: [id number] Dis Date: Status: [facility] ER PHONE #: [phone] Exam Date: 01/04/2023 0940 FAX #: [phone] Reason: GROSS HEMATURIA EXAMS: CPT CODE: [id number] CT ABD PELVIS W/CONT 46569 H 20 TIME OF STUDY: 01/04/2023 7:55 [...] 1 Signed Report (CONTINUED) Name: MATHEW CASTILLO [facility] :1960 Age/S: 62 / M [address] [place] [address] Bl Unit #: [id number] Loc: [place] [address] Phys: Vee Horton Acct: [id number] Dis Date: Status: REG ER PHONE #: [phone] Exam Date: 01/04/2023939 FAX #: [phone] Reason: GROSS HEMATURIA EXAMS: CPT CODE: [id number] CT ABD PELVIS W/CONT 23569 (Continued) at 2224 Reported and signed by: Zia Magaña M.D. CC: Lakhwinder Guillermo MD; Vee Horton; Javier Carroll Technologist:Latoya Moeller, RT(R); Lesvia Humphries CTDI: DLP: Trnscb Date/Time: 01/04/2023 (2223) t.SDR.SI1 Orig Print D/T: S: 01/04/2023 (2226) PAGE 2 Signed ReportCOMPREHENSIVE METABOLIC [id number] 21:07:00* Test Item Value Reference Range Interpretation [...] ALKP) 60 IUnit/L 20-125 N CBC W/AUTO [id number] 20:38:00* Test Item Value Reference Range Interpretation [...] (test code = MDIFF) NO BASIC METABOLIC [id number] 08:30:00* Test Item Value Reference Range Interpretation Comme nts SODIUM (test code = NA) 140 mEq/L 134-147 N POTASSIUM (test code = K) 2.8 mEq/L 3.4-5.0 LL Critical result called to ELLE SINGH RN by FMS22 at 0609 10/16/22Nurse read back resut and [...] 8.0-10.5 LL Critical result called [place] Brigido HANKINSS22 [place] [address]/16/22Nurse read back result and tech confirmed it's correct? YPreviously reported result: 4.9 mg/dLEdited by: KRISTEN on 10/31/22:01875210/31/22 0829: CA previously reported as: 4.9 *L mg/dL Critical result [place] [address]/16/22 Nurse read back result and tech confirmed it's correct? Y GLUCOSE [id number] 17:27:00* Test Item Value Reference Range Interpretation Comme nts GLUCOSE BEDSIDE (test code = GLUBED) 109 MG/DL 70-110 N Performed by teto tse at [facility] GLUCOSE [id number] 12:34:00* Test Item Value Reference Range Interpretation Comme nts GLUCOSE BEDSIDE (test code = GLUBED) 95 MG/DL 70-110 N Performed by cer tified concrete grinder operator at [facility] GLUCOSE [id number] 08:49:00* Test Item Value Reference Range Interpretation Comme nts GLUCOSE BEDSIDE (test code = GLUBED) 117 MG/DL 70-110 H Performed by cer tified concrete grinder operator at [facility] BASIC METABOLIC [id number] 07:57:00* Test Item Value Reference Range Interpretation [...] = CA) 8.1 mg/dL 8.0-10.5 N GLUCOSE [id number] 17:07:00* Test Item Value Reference Range Interpretation Comme nts GLUCOSE BEDSIDE (test code = GLUBED) 127 MG/DL 70-110 H Performed by cer tified concrete grinder operator at [facility] GLUCOSE [id number] 12:26:00* Test Item Value Reference Range Interpretation Comme nts GLUCOSE BEDSIDE (test code = GLUBED) 123 MG/DL 70-110 H Performed by cer tified concrete grinder operator at [facility] GLUCOSE [id number] 07:59:00* Test Item Value Reference Range Interpretation Comme nts GLUCOSE BEDSIDE (test code = GLUBED) 92 MG/DL 70-110 N Performed by cer violeta concrete grinder operator at [facility] BASIC METABOLIC [id number] 07:38:00* Test Item Value Reference Range Interpretation [...] CA) 7.8 mg/dL 8.0-10.5 L CBC W/AUTO [id number] 07:27:00* Test Item Value Reference Range Interpretation [...] REQUIRED (test code = MDIFF) NO GLUCOSE [id number] 21:25:00* Test Item Value Reference Range Interpretation Comme nts GLUCOSE BEDSIDE (test code = GLUBED) 154 MG/DL 70-110 H Performed by cer tified concrete grinder operator at [facility] GLUCOSE [id number] 17:43:00* Test Item Value Reference Range Interpretation Comme nts GLUCOSE BEDSIDE (test code = GLUBED) 73 MG/DL 70-110 N Performed by cer tified concrete grinder operator at [facility] GLUCOSE [id number] 10:08:00* Test Item Value Reference Range Interpretation Comme nts GLUCOSE BEDSIDE (test code = GLUBED) 87 MG/DL 70-110 N Performed by cer tified concrete grinder operator at [facility] GLUCOSE [id number] 20:12:00* Test Item Value Reference Range Interpretation Comme nts GLUCOSE BEDSIDE (test code = GLUBED) 139 MG/DL 70-110 H Performed by cer tified concrete grinder operator at [facility] GLUCOSE [id number] 17:32:00* Test Item Value Reference Range Interpretation Comme nts GLUCOSE BEDSIDE (test code = GLUBED) 79 MG/DL 70-110 N Performed by cer tified concrete grinder operator at [facility] GLUCOSE [id number] 12:14:00* Test Item Value Reference Range Interpretation Comme nts GLUCOSE BEDSIDE (test code = GLUBED) 98 MG/DL 70-110 N Performed by cer tified concrete grinder operator at [facility] GLUCOSE [id number] 08:36:00* Test Item Value Reference Range Interpretation Comme nts GLUCOSE BEDSIDE (test code = GLUBED) 92 MG/DL 70-110 N Performed by cer tified concrete grinder operator at [facility] BASIC METABOLIC [id number] 07:50:00* Test Item Value Reference Range Interpretation [...] code = CA) 7.6 mg/dL 8.0-10.5 L [id number] 07:50:00* Test Item Value Reference Range Interpretation Comme nts MAGNESIUM (test code = MAG) 1.53 mg/dL 1.80-2.40 L - CTA CHEST FOR [id number] 00:00:00 [facility] : 1960 Sex: M Name: MATHEW CASTILLO [facility] : 1960 Age/S: 62 / M [address] [place] [address] Blvd Unit #: [id number] Loc: [place] [address] Phys: Sofia Cheng LIFT DRIVER Acct: [id number] Dis Date:Status: ADM IN PHONE #: [phone] Exam Date: 10/23/2022 1724 FAX #: [phone] Reason: ELEVATED D DIMER EXAMS: CPT CODE: [id number] [place] [address] PROCEDURE INFORMATION: Exam: CTA Chest With Contrast [...] one of these dose optimization techniques: automated exposurecontrol; mA and/or kV adjustment per patient size (includes targeted exams where dose is matched toclinical indication); or iterative reconstruction. Contrast material: ISOVUE; [...] 1 Signed Report (CONTINUED) Name: MATHEW CASTILLO [facility] : 1960 Age/S: 62 / M [address] [place] [address] Unit #: [id number] Loc: [place] [address] Phys: Sofia Cheng LIFT DRIVER Acct: [id number] Dis Date: Status: ADM IN PHONE #: [phone] Exam Date: 10/23/2022 1721 FAX #: [phone] Reason: ELEVATED D DIMER EXAMS: CPT CODE: [id number] [place] [address] (Continued) flexure compatible with colitis incompletely evaluated. 3. Small ri ght pleural effusion with right lower lobe atelectasis. 4. Left upper lobe bronchiectasis. 5. Minimal anterior pericardial effusion. 6. Type 4 hiatal hernia measures 7.6 cm X 6.5 cm. 7. Gastric fundal wall thickening, correlation with recent endoscopy is recommended to help exclude an infiltratingmucosal process. at 2013 Reported and signed by: Hayden Rg M.D. CC: Sofia Cheng LIFT DRIVER; Salinas Dukes MD Technologist:Latoya Pérez, RT(R)(CT); . CTDI: DLP: Trnscb Date/Time: 10/23/2022 (2012) tJosé MiguelSDR.JT18 Orig Print D/T: S: 10/23/2022 (2012) PAGE 2 Signed ReportGLUCOSE [id number] 20:23:00* Test Item Value Reference Range Interpretation Comme nts GLUCOSE BEDSIDE (test code = GLUBED) 123 MG/DL 70-110 H Performed by cer tified concrete grinder operator at [facility] GLUCOSE [id number] 17:34:00* Test Item Value Reference Range Interpretation Comme nts GLUCOSE BEDSIDE (test code = GLUBED) 132 MG/DL 70-110 H Performed by [facility] tified concrete grinder operator at [facility] GLUCOSE [id number] 11:57:00* Test Item Value Reference Range Interpretation Comme nts GLUCOSE BEDSIDE (test code = GLUBED) 118 MG/DL 70-110 H Performed by cer tified concrete grinder operator at [facility] GLUCOSE [id number] 08:22:00* Test Item Value Reference Range Interpretation Comme nts GLUCOSE BEDSIDE (test code = GLUBED) 100 MG/DL 70-110 N Performed by [facility] tified concrete grinder operator at [facility] BASIC METABOLIC [id number] 08:05:00* Test Item Value Reference Range Interpretation [...] code = CA) 7.8 mg/dL 8.0-10.5 L [id number] 08:05:00* Test Item Value Reference Range Interpretation Comme nts MAGNESIUM (test code = MAG) 1.72 mg/dL 1.80-2.40 L GLUCOSE [id number] 21:10:00* Test Item Value Reference Range Interpretation Comme nts GLUCOSE BEDSIDE (test code = GLUBED) 148 MG/DL 70-110 H Performed by cer tified concrete grinder operator at [facility] GLUCOSE [id number] 17:29:00* Test Item Value Reference Range Interpretation Comme nts GLUCOSE BEDSIDE (test code = GLUBED) 102 MG/DL 70-110 N Performed by cer tified concrete grinder operator at [facility] GLUCOSE [id number] 11:54:00* Test Item Value Reference Range Interpretation Comme nts GLUCOSE BEDSIDE (test code = GLUBED) 104 MG/DL 70-110 N Performed by [facility] [place] [employer] ([employer] concrete grinder operator at [facility] CBC W/MANUAL [id number] 10:35:00* Test Item Value Reference Range Interpretation [...] (test code = PLTMORPH) LARGE PLATELETS GLUCOSE [id number] 07:57:00* Test Item Value Reference Range Interpretation Comme [facility] GLUCOSE BEDSIDE (test code = GLUBED) 95 MG/DL 70-110 N Performed by cer tified concrete grinder operator at [facility] C REACTIVE [id number] 07:48:00* Test Item Value Reference Range Interpretation Comme [facility] C REACTIVE PROTEIN (test cod e = CRP) 36.0 mg/L <10.0 H BASIC METABOLIC [id number] 07:40:00* Test Item Value Reference Range Interpretation [...] code = CA) 7.3 mg/dL 8.0-10.5 L [id number] 07:40:00* Test Item Value Reference Range Interpretation Comme nts MAGNESIUM (test code = MAG) 1.50 mg/dL 1.80-2.40 L [id number] 07:04:00* Test Item Value Reference Range Interpretation Comme nts D-DIMER (test code = DDIMER) 5949 ng/mlFEU See_Comment HH Critical result called to Brigido RUIZLAB.JJ1 at 0701 10/21/22Nurse read back result and tech confirmed it's correct? YESTHROMBOSIS AND/OR PULMONARY EMBOLISM AND THE CLINICAL CUT- OFF VALUE FOR EXCLUSION (500 ng/mL FEU) OF THESE CONDITIONSIS VALIDATED BY THE TUBE LASER OPERATOR OF THE METHOD. A NEGATIVE D-DIMER RESULT [...] this result as normal/abnormal. - DUP VEIN [id number] 00:00:00 [facility]: [facility]W [facility]ILLO : 1960 Sex: M Name: MATHEW CASTILLO [facility] [place] : 1960 Age/S: 62 / M [address] [place] [address] Blvd Unit #: [id number] Loc: [place] [address] Phys: Skip Jaffe MD Acct: [id number] Dis Date: Status: ADM IN PHONE #: [phone] Exam Date: 10/21/2022820 FAX #: [phone] Reason: R/o DVT EXAMS: CPT CODE: [id number] DUP VEIN ASAEL 71006 PROCEDURE INFORMATION: Exam: US Duplex Lower ExtremityVeins, [...] MD; Salinas Dukes MD Technologist: [facility] Baker [facility] Date/Time: 10/21/2022 (911) t.SDR.AB61 Orig Print D/T: S:10/21/2022 (911) Probe: PAGE 1 Signed Report GLUCOSE [id number] 20:40:00* Test Item Value Reference Range Interpretation Comme [facility] GLUCOSE BEDSIDE (test code = GLUBED) 148 MG/DL 70-110 H Performed by cer tified concrete grinder operator at [facility] GLUCOSE [id number] 16:46:00* Test Item Value Reference Range Interpretation Comme [facility] GLUCOSE BEDSIDE (test code = GLUBED) 122 MG/DL 70-110 H Performed by cer tified concrete grinder operator at [facility] TROP-I HIGH [id number] 15:04:00* Test Item Value Reference Range Interpretation [...] URL. These results were obtained using [employer] IM TnIHreagent. Results from different methodologies should not becompared to one another as quantitative results and URLs mayvary by method. BASIC METABOLIC [id number] 15:04:00* Test Item Value Reference Range Interpretation [...] CA) 7.1 mg/dL 8.0-10.5 L TROP-I HIGH [id number] 10:07:00* Test Item Value Reference Range Interpretation [...] URL. These results were obtained using [employer] Reference [facility] IM TnIHreagent. Results from different methodologies should not becompared to one another as quantitative results and URLs mayvary by method. CBC W/AUTO [id number] 09:54:00* Test Item Value Reference Range Interpretation [...] (test code = MDIFF) NO TROP-I HIGH [id number] 09:24:00* Test Item Value Reference Range Interpretation [...] the URL. These results were obtained using [employer] IM TnIHreagent. Results from different methodologies should not becompared to one another as quantitative results and URLs mayvary by method. GLUCOSE [id number] 08:49:00* Test Item Value Reference Range Interpretation Comme nts GLUCOSE BEDSIDE (test code = GLUBED) 102 MG/DL 70-110 N Performed by teto mcdaniel concrete grinder operator at [facility] COMPREHENSIVE METABOLIC [id number] 02:08:00* Test Item Value Reference Range Interpretation [...] code = ALKP) 47 IUnit/L 20-125 N [id number] 02:08:00* Test Item Value Reference Range Interpretation Comme nts LIPASE (test code = LIP) 57 U/L 13-57 N PROTHROMBIN [id number] 02:05:00* Test Item Value Reference Range Interpretation [...] Infarction (to prevent recurrent infarct). THROMBOPLASTIN TIME [id number] 02:05:00* Test Item Value Reference Range Interpretation Comme [facility] THROMBOPLASTIN TIME PARTIAL (test code = PTT) 26.1 Seconds 25.0-39.5 N Therapeutic Rang e: 50.4 - 88.3 Seconds Effective 07/21/2018 LACTIC [id number] 01:59:00* Test Item Value Reference Range Interpretation Comme [facility] LACTIC ACID (test code = LACT) 1.1 mmol/L 0.4-1.9 N CBC W/AUTO [id number] 01:51:00* Test Item Value Reference Range Interpretation [...] = MDIFF) NO - XR CHEST 1 [id number] 00:00:00 [facility] : 1960 Sex: M FAX: Sofia Cheng NP [phone] [place]: St: ADM FAX: Salinas Callahan I [phone] Name: MATHEW CASTILLO [facility] : 1960 Age/S: 62/M [address] [place] [address] Unit #: [id number] Loc: G.[address] [place] [address] Phys: Sofia Cheng NP Acct: [id number] Dis Date: Status: ADM IN PHONE #: [phone] Exam Date: 10/20/2022106 FAX #: [phone] Reason: Sepsis EXAMS: CPT CODE: [id number] XR CHEST 1 V 72360 PROCEDURE INFORMATION: Exam: XR Chest Exam date [...] and signed by: Reinaldo Jacobs M.D. CC: oSfia Cheng NP; Salinas Dukes MD Technologist: Xochitl Dubon RT(R) Trnscrd Date/Time/By: 10/20/2022 (213) : By: [email or web address] Orig Print D/T: S: 10/20/2022 (3) PAGE 1 Signed ReportGLUCOSE [id number] 21:00:00* Test Item Value Reference Range Interpretation Comme nts GLUCOSE BEDSIDE (test code = GLUBED) 135 MG/DL 70-110 H Performed by cer tified concrete grinder operator at [facility] URINALYSIS [id number] 20:03:00* Test Item Value Reference Range Interpretation [...] MUCU) 1+ /LPF NONE SEEN UR SODIUM [id number] 20:03:00* Test Item Value Reference Range Interpretation Comme nts UR SODIUM RANDOM (test code = ALPHONSE) 102 MEQ/L The Reference Ra nge and Method Performance specificationshave not been established for this fluid. The test resultshould be correlated into the clinical context forinterpretation. UR PROTEIN [id number] 20:03:00* Test Item Value Reference Range Interpretation Comme nts UR PROTEIN RANDOM (test code = PROTU) 79 mg/dL UR CREATININE [id number] 20:03:00* Test Item Value Reference Range Interpretation Comme nts UR CREATININE RANDOM (test code = CREATU) 111.9 mg/dL The Reference Ra nge and Method Performance specificationshave not been established for this fluid. The test resultshould be correlated into the clinical context forinterpretation. UR OSMOLALITY [id number] 20:03:00* Test Item Value Reference Range Interpretation Comme nts UR OSMOLALITY RANDOM (test c ode = OSMOU) 575 MOS/KG 300-1000 UR OSMOLALITY [id number] 20:02:00* Test Item Value Reference Range Interpretation Comme nts UR OSMOLALITY RANDOM (test c ode = OSMOU) 575 MOS/KG 300-1000 N GLUCOSE [id number] 17:18:00* Test Item Value Reference Range Interpretation Comme nts GLUCOSE BEDSIDE (test code = GLUBED) 122 MG/DL 70-110 H Performed by cer tified concrete grinder operator at [facility] GLUCOSE [id number] 12:48:00* Test Item Value Reference Range Interpretation Comme nts GLUCOSE BEDSIDE (test code = GLUBED) 109 MG/DL 70-110 N Performed by cer tified concrete grinder operator at [facility] GLUCOSE [id number] 07:53:00* Test Item Value Reference Range Interpretation Comme nts GLUCOSE BEDSIDE (test code = GLUBED) 96 MG/DL 70-110 N Performed by cer tified concrete grinder operator at [facility] BASIC METABOLIC [id number] 07:51:00* Test Item Value Reference Range Interpretation [...] code = CA) 7.5 mg/dL 8.0-10.5 L [id number] 07:51:00* Test Item Value Reference Range Interpretation Comme nts MAGNESIUM (test code = MAG) 1.65 mg/dL 1.80-2.40 L CBC W/AUTO [id number] 07:07:00* Test Item Value Reference Range Interpretation [...] (test c ode = MDIFF) NO GLUCOSE [id number] 20:44:00* Test Item Value Reference Range Interpretation Comme nts GLUCOSE BEDSIDE (test code = GLUBED) 116 MG/DL 70-110 H Performed by cer tified concrete grinder operator at [facility] GLUCOSE [id number] 18:07:00* Test Item Value Reference Range Interpretation Comme nts GLUCOSE BEDSIDE (test code = GLUBED) 98 MG/DL 70-110 N Performed by cer tified concrete grinder operator at [facility] GLUCOSE [id number] 12:23:00* Test Item Value Reference Range Interpretation Comme nts GLUCOSE BEDSIDE (test code = GLUBED) 135 MG/DL 70-110 H Performed by Konoz concrete grinder operator at [facility] [facility] GLUCOSE [id number] 11:22:00* Test Item Value Reference Range Interpretation Comme nts GLUCOSE BEDSIDE (test code = GLUBED) 104 MG/DL 70-110 N Performed by cer tified concrete grinder operator at [facility] BASIC METABOLIC [id number] 08:12:00* Test Item Value Reference Range Interpretation [...] code = CA) 7.4 mg/dL 8.0-10.5 L [id number] 08:12:00* Test Item Value Reference Range Interpretation Comme nts MAGNESIUM (test code = MAG) 1.48 mg/dL 1.80-2.40 L CBC W/AUTO [id number] 08:09:00* Test Item Value Reference Range Interpretation [...] (test c ode = MDIFF) NO GLUCOSE [id number] 05:56:00* Test Item Value Reference Range Interpretation Comme nts GLUCOSE BEDSIDE (test code = GLUBED) 104 MG/DL 70-110 N Performed by cer tified concrete grinder operator at [facility] GLUCOSE [id number] 03:31:00* Test Item Value Reference Range Interpretation Comme nts GLUCOSE BEDSIDE (test code = GLUBED) 129 MG/DL 70-110 H Performed by cer tified concrete grinder operator at [facility] GLUCOSE [id number] 12:50:00* Test Item Value Reference Range Interpretation Comme nts GLUCOSE BEDSIDE (test code = GLUBED) 177 MG/DL 70-110 H Performed by cer tified concrete grinder operator at [facility] CBC W/AUTO [id number] 10:14:00* Test Item Value Reference Range Interpretation [...] 0.00 x10 3/uL 0.0-0.1 N VITAMIN D [id number] 08:19:00* Test Item Value Reference Range Interpretation Comme nts VITAMIN D 25-HYDROXY (test c ode = VITD25) 25.5 ng/mL 30-100 L Indication for Test: PTH DisorderCOMPREHENSIVE METABOLIC [id number] 08:14:00* Test Item Value Reference Range Interpretation [...] code = ALKP) 62 IUnit/L 20-125 N [id number] 08:14:00* Test Item Value Reference Range Interpretation Comme nts PHOSPHOROUS (test code = PHOS) 2.6 MG/DL 2.5-4.9 N [id number] 08:14:00* Test Item Value Reference Range Interpretation Comme nts MAGNESIUM (test code = MAG) 1.50 mg/dL 1.80-2.40 L GLUCOSE [id number] 07:40:00* Test Item Value Reference Range Interpretation Comme nts GLUCOSE BEDSIDE (test code = GLUBED) 105 MG/DL 70-110 N Performed by cer tified concrete grinder operator at [facility] GLUCOSE [id number] 17:26:00* Test Item Value Reference Range Interpretation Comme nts GLUCOSE BEDSIDE (test code = GLUBED) 113 MG/DL 70-110 H Performed by cer tified concrete grinder operator at [facility] PROTHROMBIN [id number] 15:23:00* Test Item Value Reference Range Interpretation [...] (to prevent recurrent infarct). TSH REFLEX TO [id number] 14:32:00* Test Item Value Reference Range Interpretation Comme [facility] TSH REFLEX TO FT4 (test code = TSHREFLEX) 1.59 IU/mL 0.42-5.47 N [id number] 14:19:00* Test Item Value Reference Range Interpretation Comme [facility] HGBA1C% (test code = HGBA1C%) 5.5 %A1C 4.8-6.0 N [id number] 14:13:00* Test Item Value Reference Range Interpretation Comme [facility] MAGNESIUM (test code = MAG) 1.91 mg/dL 1.80-2.40 N COMPREHENSIVE METABOLIC [id number] 14:13:00* Test Item Value Reference Range Interpretation [...] = ALKP) 62 IUnit/L 20-125 N GLUCOSE [id number] 12:54:00* Test Item Value Reference Range Interpretation Comme nts GLUCOSE BEDSIDE (test code = GLUBED) 102 MG/DL 70-110 N Performed by cer [employer] concrete grinder operator at [facility] GLUCOSE [id number] 10:14:00* Test Item Value Reference Range Interpretation Comme nts GLUCOSE BEDSIDE (test code = GLUBED) 110 MG/DL 70-110 N Performed by [employer] tified concrete grinder operator at [facility] CBC W/AUTO [id number] 05:58:00* Test Item Value Reference Range Interpretation [...] Notes Date/Time Note Provider Source 2023-02-14 02:12:00 [facility] ([facility]) Discharge Summary REPORT#:[id number] REPORT STATUS: Signed REPORT INITIALIZATION DATE:02/14/23 TIME: 211 PATIENT: MATHEW CASTILLO UNIT #: [id number] ROOM/BED: [place] [address] : 59 AGE: 62 SEX: M ATTEND: [...] BPH-s/p UroLift 01/03/2023, schizophrenia was transferred from [facility] with acute kidney injury and urinary retention. [...] (Auto) (14.0 - 32.0 %) 7.1 L [place] % (Auto) (4.8 - 9.0 %) 8.1 Eos % (Auto) (0.3 - 3.7 %) 0.4 Baso % (Auto) (0.0 - 2.0 %) 0.1 Neut # (Auto) (2.0 - 7.6 x10 3/uL) 9.37 H Lymph # (Auto) (1.0 - 3.8 x10 3/uL) 0.79 L [place] # (Auto) (0.1 - 0.8 x10 3/uL) [...] 3/uL) 0.[address] ABD PELVIS W/CONT [id number] EXAM: CT abdomen and pelvis with contrast [...] Discharge Instructions Additional Discharge Routines: PCP Follow-Up, Bid Clerk Follow-Up )( Diet: Regular Follow-up Appointments PCP follow up: PCP: Lakhwinder Guillermo MD PCP follow up timeframe: In 5 days Attending Physician: Attending Physician: Salinas Alba MD Attending physician follow up timeframe: In 1-2 weeks Consulting provider 1: Provider 1: Dave Jones MD Specialty: Urology Consult follow up timeframe: In 1-2 weeks at [facility] #:[phone] END OF REPORT [facility] 2023-02-04 04:06:00 [facility] ([facility]) Discharge Summary REPORT#:[id number] REPORT STATUS: Signed REPORT INITIALIZATION DATE:02/04/23 TIME: 405 PATIENT: MATHEW CASTILLO UNIT #: [id number] ROOM/BED: [place] [address] : 59 AGE: 62 SEX: M ATTEND: [...] lift yesterday by Dr. Jones transferred from [place] for urology evaluation secondary to hematuria after bladder irrigation failed. Patient was seen and evaluated by Dr. 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 Last admitted to [facility] on 10/16/22 with urinary retention. Abnormal [...] of motion, normal sensory, normal motor function Neuro/GAS UTILITY WORKER: alert, oriented X 3 Skin: dry, [...] % (Auto) (14.0 - 32.0 %) 20.8 [place] % (Auto) (4.8 - 9.0 %) 7.7 Eos % (Auto) (0.3 - 3.7 %) 8.1 H Baso % (Auto) (0.0 - 2.0 %) 0.7 Neut # (Auto) (2.0 - 7.6 x10 3/uL) 4.51 Lymph # (Auto) (1.0 - 3.8 x10 3/uL) 1.51 [place] # (Auto) (0.1 - 0.8 x10 3/uL) [...] 3/uL) 0.[address] ABD PELVIS W/CONT [id number] H 20 TIME OF STUDY: 01/04/2023 7:55 [...] Discharge Instructions Additional Discharge Routines: PCP Follow-Up, Bid Clerk Follow-Up )( Diet: Cardiac Follow-up Appointments PCP follow up: PCP: Lakhwinder Guillermo MD PCP follow up timeframe: In 5 days Special instructions: CALL TO MAKE APPOINTMENT Consulting provider 1: Provider 1: Dave Jones MD Specialty: Urology Special instructions: CALL TO SCHEDULE APPOINTMENT at 0735 [facility] #:[id number] END OF REPORT [facility] 2023-01-27 18:31:00 [phone] [place] [address] PATIENT NAME: MATHEW CASTILLO ADMIT DATE: 01/06/23 ACCOUNT NO: [id number] ROOM NO: G.C146 AGE: 62 REPORT TYPE: 360 - QUERY RESPONSE DOCUMENT SEX: M ADMITTING PHYSICIAN:Salinas Alba MD ATTENDING PHYSICIAN:Salinas Alba MD Provider Query QUERY TEXT: Condition General 360MD Query related questions should be directed to: [facility] Coding Query Helpline [Based [...] AM at 1831 PATIENT NAME: MATHEW CASTILLO [facility] 2023-01-27 13:09:00 [phone] [place] [address] PATIENT NAME: MATHEW CASTILLO ADMIT DATE: 01/06/23 ACCOUNT NO: [id number] ROOM NO: G.C146 AGE: 62 REPORT TYPE: 360 - QUERY RESPONSE DOCUMENT SEX: M ADMITTING PHYSICIAN:Salinas Alba MD ATTENDING PHYSICIAN:Salinas Alba MD Provider Query QUERY TEXT: Condition General 360MD Query related questions should be directed to: [facility] Coding Query Helpline [Based on your medical judgement and the clinical indicators listed below kindly specify the underlying cause of the patient's heamaturia(Hematuria due to bladder lift surgery, hematuria due to UTI, hematuria unspecified, or other more appropriate diagnosis)?.] The patient's Clinical Indicators include: 62-year-old male with last medical history of, BPH, s/p bladder lift yesterdayby Dr. Jones transferred from [place] for urology evaluation secondary tohematuria after bladder [...] AM at 1309 PATIENT NAME: MATHEW CASTILLO [facility] 2023-01-27 13:09:00 [phone] [place] [address] PATIENT NAME: MATHEW CASTILLO ADMIT DATE: 01/06/23 ACCOUNT NO: [id number] ROOM NO: G.C146 AGE: 62 REPORT TYPE: 360 - QUERY RESPONSE DOCUMENT SEX: M ADMITTING PHYSICIAN:Salinas Alba MD ATTENDING PHYSICIAN:Salinas Alba MD Provider Query QUERY TEXT: Condition General 360MD Query related questions should be directed to: [facility] Coding Query Helpline [Based [...] culture, likely could be either contaminant or career services representative of transient bacteremia: progress note [...] AM at 1309 PATIENT NAME: MATHEW CASTILLO [facility] 2023-01-22 17:40:00 [facility] Internal Medicine Prog. Note REPORT#:[id number] REPORT STATUS: Signed REPORT INITIALIZATION DATE:01/22/23 TIME: 1739 PATIENT: MATHEW CASTILLO UNIT #: [id number] ROOM/BED: [place] [address] : 59 AGE: 62 SEX: M ATTEND: Salinas Alba MD ADM AUTHOR: Sofia Cheng LIFT DRIVER REPT SERVICE DT/TIME: 01/22/231739 * ALL edits or amendments must be made on the electronic/computer document * Objective General VS/I O: Vital Signs Date Temp Pulse Resp B/P B/P Mean Pulse Ox FiO2 01/21-01/22 36.6-37.0 78-88 14-20 109-137/64-82 80.9-100.0 95-98 Last Documented: Result Date Time Pulse Ox 98 01/22 1610 B/P 114/64 01/22 1610 B/P Mean 80.9 01/22 161 Temp 36.9 01/22 161 Pulse 78 01/22 1610 Resp 16 01/22 [...] Sodium Chloride (SODIUM CHLORIDE 0.9%) 1,000 ML .[id number] IV Haloperidol (HALDOL) 10 MG BID PO [...] (Auto) (14.0 - 32.0 %) 9.8 L [place] % (Auto) (4.8 - 9.0 %) 9.0 Eos % (Auto) (0.3 - 3.7 %) 5.7 H Baso % (Auto) (0.0 - 2.0 %) 0.4 Neut # (Auto) (2.0 - 7.6 x10 3/uL) 7.35 Lymph # (Auto) (1.0 - 3.8 x10 3/uL) 0.97 L [place] # (Auto) (0.1 - 0.8 x10 3/uL) [...] discharged see discharge summery at 2132 RPT #:[id number] END OF REPORT [facility] 2023-01-22 12:19:00 [facility] Nephrology Consultation Note REPORT#:[id number] REPORT STATUS: Signed REPORT INITIALIZATION DATE:01/22/23 TIME: 1218 PATIENT: MATHEW CASTILLO UNIT #: [id number] ROOM/BED: [place] [address] : 59 AGE: 62 SEX: M ATTEND: [...] patient given empirc abx and transferred to [facility] yesterday for further evaluation and management. Initial [...] MG Q4H PRN PRN 01/21 645 DC (TYLENOL) PO 01/22 0533 Diagnostic Agents Sig/Mark Start time Last Medication Dose Route Stop Time Status Admin Iopamidol 100 ML .STK-MED ONE 01/22 1234 DC 01/22 (ISOVUE-300 100ML) IV 01/22 123 1234 Electrolytic, Caloric, And Scott Sig/Mark Start time Last Medication Dose Route Stop Time Status Admin Sodium Chloride 1,000 ML .[id number] 01/21 2330 AC 01/22 (SODIUM CHLORIDE IV [...] PRN 01/21 233 AC (ZOFRAN) IV 04/21 2328 Ondansetron HCl [...] Sodium Chloride (SODIUM CHLORIDE 0.9%) 1,000 ML .[id number] IV Haloperidol (HALDOL) 10 MG BID PO [...] (Auto) (14.0 - 32.0 %) 9.8 L [place] % (Auto) (4.8 - 9.0 %) 9.0 Eos % (Auto) (0.3 - 3.7 %) 5.7 H Baso % (Auto) (0.0 - 2.0 %) 0.4 Neut # (Auto) (2.0 - 7.6 x10 3/uL) 7.35 Lymph # (Auto) (1.0 - 3.8 x10 3/uL) 0.97 L [place] # (Auto) (0.1 - 0.8 x10 3/uL) [...] and . at 1923 at 1933 RPT #:[id number] END OF REPORT [facility] 2023-01-21 19:40:00 [facility]) Urology Consult Note REPORT#:[id number] REPORT STATUS: Signed REPORT INITIALIZATION DATE:01/21/23 TIME: 1939 PATIENT: MATHEW CASTILLO UNIT #: [id number] ROOM/BED: [place] [address] : 59 AGE: 62 SEX: M ATTEND: [...] at outside hospital and was transferred to [place] with acute renal failure and urinary retention. Outside labs showed creatinine of 5.6, GFR 11. They were able to place a catheter at the outside hospital and his creatinine currently is 2.6 GFR 27. Patient feels overall well he has a [address] that is patent and [...] B/P 117/73 01/21 1628 B/P Mean 87.3 01/21 162 Temp 98.2 01/21 162 Pulse 82 01/21 1628 Resp 16 01/21 1628 O2 Delivery Room air 01/21 0516 24 [...] (Auto) (14.0 - 32.0 %) 7.1 L [place] % (Auto) (4.8 - 9.0 %) 8.1 Eos % (Auto) (0.3 - 3.7 %) 0.4 Baso % (Auto) (0.0 - 2.0 %) 0.1 Neut # (Auto) (2.0 - 7.6 x10 3/uL) 9.37 H Lymph # (Auto) (1.0 - 3.8 x10 3/uL) 0.79 L [place] # (Auto) (0.1 - 0.8 x10 3/uL) [...] in outside hospital and was transferred to [place]. He has indwelling Black placed from the outside hospital that is patent and draining clear urine. Creatinine has down trended to 2.6 from 5.6. -Continue indwelling Black do not remove -Trend creatinine -Discussed patient to follow-up with our clinic 01/30/2023 for nurse visit catheter removal and CIC teaching for which he was amenable to trying Crystal Alberts MD -covering for Dr. Jones [facility] at 1948 RPT #:[id number] END OF REPORT [facility] 2023-01-21 10:48:00 [facility] ([facility]) History Physical - Adult REPORT#:[id number] REPORT STATUS: Signed REPORT INITIALIZATION DATE:01/21/23 TIME: 104 PATIENT: MATHEW CASTILLO UNIT #: [id number] ROOM/BED: [place] [address] : 59 AGE: 62 SEX: M ATTEND: Salinas Alba MD ADM AUTHOR: Sofia Cheng NP REPT SERVICE DT/TIME: 01/21/23 1048 * ALL edits or amendments must be made on the electronic/computer document * History of Present Illness HPI Chief complaint: Acute kidney injury Urinary retention HPI: 62-year-old male with last medical history of, BPH-s/p UroLift 01/03/2023, schizophrenia was transferred from [facility] ER with acute kidney injury [...] of motion, normal sensory, normal motor function Neuro/GAS UTILITY WORKER: alert, oriented X 3 Skin: dry, [...] (Auto) (14.0 - 32.0 %) 7.1 L [place] % (Auto) (4.8 - 9.0 %) 8.1 Eos % (Auto) (0.3 - 3.7 %) 0.4 Baso % (Auto) (0.0 - 2.0 %) 0.1 Neut # (Auto) (2.0 - 7.6 x10 3/uL) 9.37 H Lymph # (Auto) (1.0 - 3.8 x10 3/uL) 0.79 L [place] # (Auto) (0.1 - 0.8 x10 3/uL) [...] of motion, normal sensory, normal motor function Neuro/GAS UTILITY WORKER: alert, oriented X 3 Skin: dry, intact, no gross abnormalities Psychiatry: Mild anxiety Diagnosis, Assessment Plan Free Text DxA P Notes Free Text DxA P Notes: Assessment: 62-year-old male with last medical history of, BPH-s/p UroLift 01/03/2023, schizophrenia was transferred from [facility] ER with acute kidney injury [...] on patient's clinical course at 0300 at 5801 RPT #:[id number] END OF REPORT [facility] 2023-01-21 05:27:00 [facility] ([facility]) EMERGENCY PROVIDER REPORT REPORT#:[id number] REPORT STATUS: Signed DATE:01/21/23 TIME: 526 PATIENT: MATHEW CASTILLO UNIT #: [id number] ROOM/BED: 5507-1 AGE: 62 SEX: M PCP PHYS: Lakhwinder Guillermo MD SERVICE AUTHOR: Elizabeth Davenport * ALL edits or amendments must be made on the electronic/computer document * Elizabeth Davenport 01/21/23 0527: HPI-General Illness Free Text HPI Notes Free Text HPI Notes 62-year-old male with PMH as listed below presents to the ER as a transfer from [facility] ER for diagnoses of ARF, urinary [...] 56 and 1 L normal saline bolus LIVESTOCK NUTRITIONIST upon arrival, patient notes improved but not completely resolved lower abdominal pain. He denies any additional symptoms such as recent fever, chest pain, shortness of breath, N/V/D/C, testicular pain or any other symptoms. General Initial Greet Date/Time 01/21/23 05 PCP ying, uro CHRISTINA, PCP, [facility] capped Mcaid Presentation Chief Complaint [...] No palpable masses or pulsatile masses. Negative Mulino Sign. [facility] Indwelling Black, straw-colored, non-cloudy urine, [...] (Auto) (14.0 - 32.0 %) 7.1 L [place] % (Auto) (4.8 - 9.0 %) 8.1 Eos % (Auto) (0.3 - 3.7 %) 0.4 Baso % (Auto) (0.0 - 2.0 %) 0.1 Neut # (Auto) (2.0 - 7.6 x10 3/uL) 9.37 H Lymph # (Auto) (1.0 - 3.8 x10 3/uL) 0.79 L [place] # (Auto) (0.1 - 0.8 x10 3/uL) [...] PRN PRN 01/21 0645 DC IV 01/22 533 Patient Discharge Departure Vital Signs/Condition Condition Guarded Supervising Physician Note MidLv/Doc Saw Pt 1 I have personally seen the patient and I evaluated the patient along with involvement of the PA/LIFT DRIVER. I agree with the PA/diversity manager findings and plan. I have performed all aspects of MDM as documented including: evaluation of the patient/ patient's condition(s), review and analysis of available data, and determination of risk of patient management decisions. at 2244 at 1025 [facility] #:[id number] END OF REPORT [facility] 2023-01-15 09:31:00 [phone] [place] [address] PATIENT NAME: MATHEW CASTILLO ADMIT DATE: 01/06/23 ACCOUNT NO: [id number] ROOM NO: G.C146 AGE: 62 REPORT TYPE: 360 - QUERY RESPONSE DOCUMENT SEX: M ADMITTING PHYSICIAN:Salinas Alba MD ATTENDING PHYSICIAN:Salinas Alba MD Provider Query QUERY TEXT: Clarification Rule In Rule Out 360MD Query related questions should be directed to: [facility] Coding Query Help-line Based [...] AM at 0931 PATIENT NAME: MATHEW CASTILLO [facility] 2023-01-11 17:08:00 [phone] [address] PATIENT NAME: MATHEW CASTILLO ADMIT DATE: 01/06/23 ACCOUNT NO: [id number] ROOM NO: [facility] AGE: 62 REPORT TYPE: PROGRESS NOTE SEX: [...] Room to [facility] facility in [place], and from there, he was transferred to [facility]. The patient PATIENT NAME: MATHEW CASTILLO was evaluated by Urology Service. He was placed on broad-spectrum IV antibiotics. His urine culture has shown growth of Pseudomonas aeruginosa and 1 out of 2 blood culture has shown growth of Enterococcus faecalis. The Enterococcus faecalis growing in 1 blood culture, likely could be either contaminant or career services representative of transient bacteremia. Clinically is doing [...] Date Transcribed: 01/11/2023 18:52:55 ESTRADA/JORGE Receipt ID: [id number] Authenticated and Edited by Skip Jaffe MD On 01/22/23 5:19:12 AM at 0520 PATIENT NAME: MATHEW CASTILLO [facility] 2023-01-10 21:43:00 [facility] ([facility]) Internal Medicine Prog. Note REPORT#:[id number] REPORT STATUS: Signed REPORT INITIALIZATION DATE:01/10/23 TIME: 2142 PATIENT: MATHEW CASTILLO UNIT #: [id number] ROOM[address]BED: [address] : 58 AGE: 62 SEX: M ATTEND: Salinas Alba MD ADM AUTHOR: Sofia Cheng NP REPT SERVICE DT/TIME: 01/10/232142 * ALL edits or amendments must be made on the electronic/computer document * Subjective Chief complaint: Hematuria HPI: 62-year-old male with last medical history of, BPH, s/p bladder lift yesterday by Dr. Jones transferred from [place] for urology evaluation secondary to hematuria after bladder irrigation failed. pt was seen and evaluated by Dr. 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 Last admitted to [facility] on 10/16/22 with urinary retention. Abnormal [...] Sodium Chloride (SODIUM CHLORIDE 0.9%) 1,000 ML .[id number] IV (DC) Sodium Chloride (SODIUM CHLORIDE 0.9%) [...] of motion, normal sensory, normal motor function Neuro/GAS UTILITY WORKER: 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 Jones transferred from [place] for urology evaluation secondary to hematuria after bladder irrigation failed. pt was seen and evaluated by Dr. 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 Last admitted to [facility] on 10/16/22 with urinary retention. Abnormal [...] urology outpatient at 0024 at 0814 RPT #:[id number] END OF REPORT [facility] 2023-01-10 20:39:00 [facility] ([facility]) Infectious Dis. Progress Note REPORT#:[id number] REPORT STATUS: Signed REPORT INITIALIZATION DATE:01/10/23 TIME: 2038 PATIENT: MATHEW CASTILLO UNIT #: [id number] ROOM/BED: [facility]6-1 : 59 AGE: 62 SEX: M ATTEND: Salinas Alba MD ADM AUTHOR: kSip Jaffe MD REPT SERVICE DT/TIME: 01/10/232038 * [...] him home on oral ciprofloxacin. at 0244 [facility] #:[id number] END OF REPORT [facility] 2023-01-10 08:39:00 [phone] [place] [address] PATIENT NAME: MATHEW CASTILLO ADMIT DATE: 01/06/23 ACCOUNT NO: [id number] ROOM NO: [facility] AGE: 62 REPORT TYPE: PROGRESS NOTE SEX: [...] Date Transcribed: 01/10/2023 09:42:11 ESTRADA/KYLE Receipt ID: [id number] Authenticated and Edited by Skip Jaffe MD On 01/22/23 5:19:04 AM at 0520 PATIENT NAME: MATHEW CASTILLO [facility] 2023-01-09 22:29:00 [facility]) Internal Medicine Prog. Note REPORT#:[id number] REPORT STATUS: Signed REPORT INITIALIZATION DATE:01/09/23 TIME: 2228 PATIENT: MATHEW CASTILLO UNIT #: [id number] ROOM/BED: [place] [address] : 59 AGE: 62 SEX: M ATTEND: Salinas Alba MD ADM AUTHOR: Sofia Cheng NP REPT SERVICE DT/TIME: 01/09/232228 * ALL edits or amendments must be made on the electronic/computer document * Subjective Chief complaint: Hematuria HPI: 62-year-old male with last medical history of, BPH, s/p bladder lift yesterday by Dr. Jones transferred from [place] for urology evaluation secondary to hematuria after bladder irrigation failed. pt was seen and evaluated by Dr. 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 Last admitted to [facility] on 10/16/22 with urinary retention. Abnormal [...] Pulse Ox 97 01/10 1904 B/P 115/66 01/09 190 B/P Mean 82 01/10 1904 Temp 36.8 [...] Sodium Chloride (SODIUM CHLORIDE 0.9%) 1,000 ML .[id number] IV Sodium Chloride (SODIUM CHLORIDE 0.9%) 1,000 [...] % (Auto) (14.0 - 32.0 %) 20.8 [place] % (Auto) (4.8 - 9.0 %) 7.7 Eos % (Auto) (0.3 - 3.7 %) 8.1 H Baso % (Auto) (0.0 - 2.0 %) 0.7 Neut # (Auto) (2.0 - 7.6 x10 3/uL) 4.51 Lymph # (Auto) (1.0 - 3.8 x10 3/uL) 1.51 [place] # (Auto) (0.1 - 0.8 x10 3/uL) [...] of motion, normal sensory, normal motor function Neuro/GAS UTILITY WORKER: 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 Jones transferred from [place] for urology evaluation secondary to hematuria after bladder irrigation failed. pt was seen and evaluated by Dr. 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 Last admitted to [facility] on 10/16/22 with urinary retention. Abnormal [...] present care at 2359 at 1240 RPT #:[id number] END OF REPORT [facility] 2023-01-09 19:20:00 [facility] ([facility]) Infectious Dis. Progress Note REPORT#:[id number] REPORT STATUS: Signed REPORT INITIALIZATION DATE:01/09/23 TIME: 1919 PATIENT: MATHEW CASTILLO UNIT #: [id number] ROOM/BED: [place] [address] : 59 AGE: 62 SEX: M ATTEND: [...] him home on oral ciprofloxacin. at 0432 [facility] #:[id number] END OF REPORT [facility] 2023-01-09 18:36:00 [phone] [place] [address] PATIENT NAME: MATHEW CASTILLO ADMIT DATE: 01/06/23 ACCOUNT NO: [id number] ROOM NO: G.C146 AGE: 62 REPORT TYPE: [...] was PATIENT NAME: MATHEW CASTILLO admitted to [place], and from there, he was transferred to [facility] for urology followup. The patient was [...] Dictated: 01/09/2023 18:36:08 Date Transcribed: 01/09/2023 20:19:12 /[facility] Receipt ID: [id number] Authenticated and Edited by Skip Jaffe MD On 01/22/23 5:18:55 AM at 0520 PATIENT NAME: MATHEW CASTILLO [facility] 2023-01-09 11:30:00 [facility] [facility] Urology Progress Note REPORT#:[id number] REPORT STATUS: Signed REPORT INITIALIZATION DATE:01/09/23 TIME: 113 PATIENT: MATHEW CASTILLO UNIT #: [id number] ROOM/BED: [place] [address] : 59 AGE: 62 SEX: M ATTEND: [...] as planned in clinic at 1131 RPT #:[id number] END OF REPORT [facility] 2023-01-08 21:19:00 [facility] ([facility]) Internal Medicine Prog. Note REPORT#:[id number] REPORT STATUS: Signed REPORT INITIALIZATION DATE:01/08/23 TIME: 2118 PATIENT: MATHEW CASTILLO UNIT #: [id number] ROOM/BED: [place] [address] : 59 AGE: 62 SEX: M ATTEND: Salinas Alba MD ADM AUTHOR: Sofia Cheng LIFT DRIVER REPT SERVICE DT/TIME: 01/08/232118 * ALL edits or amendments must be made on the electronic/computer document * Subjective Chief complaint: Hematuria HPI: 62-year-old male with last medical history of, BPH, s/p bladder lift yesterday by Dr. Jones transferred from [place] for urology evaluation secondary to hematuria after bladder irrigation failed. pt was seen and evaluated by Dr. 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 Last admitted to [facility] on 10/16/22 with urinary retention. Abnormal [...] Sodium Chloride (SODIUM CHLORIDE 0.9%) 1,000 ML .[id number] IV Sodium Chloride (SODIUM CHLORIDE 0.9%) 1,000 [...] % (Auto) (14.0 - 32.0 %) 22.3 [place] % (Auto) (4.8 - 9.0 %) 6.9 Eos % (Auto) (0.3 - 3.7 %) 9.9 H Baso % (Auto) (0.0 - 2.0 %) 0.9 Neut # (Auto) (2.0 - 7.6 x10 3/uL) 3.89 Lymph # (Auto) (1.0 - 3.8 x10 3/uL) 1.46 [place] # (Auto) (0.1 - 0.8 x10 3/uL) [...] of motion, normal sensory, normal motor function Neuro/GAS UTILITY WORKER: 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 Jones transferred from [place] for urology evaluation secondary to hematuria after bladder irrigation failed. pt was seen and evaluated by Dr. 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 Last admitted to [facility] on 10/16/22 with urinary retention. Abnormal [...] present care at 2359 at 1240 RPT #:[id number] END OF REPORT [facility] 2023-01-08 18:59:00 [facility] ([facility]) Infectious Dis. Progress Note REPORT#:[id number] REPORT STATUS: Signed REPORT INITIALIZATION DATE:01/08/23 TIME: 1858 PATIENT: MATHEW CASTILLO UNIT #: [id number] ROOM/BED: [place] [address] : 59 AGE: 62 SEX: M ATTEND: Salinas Alba MD ADM AUTHOR: Skip Jaffe MD REPT SERVICE DT/TIME: 01/08/23 0374 * ALL edits or amendments must be [...] him home on oral ciprofloxacin. at 0321 [facility] #:[id number] END OF REPORT [facility] 2023-01-08 18:22:00 [id number] [address] PATIENT NAME: MATHEW CASTILLO ADMIT DATE: 01/06/23 ACCOUNT NO: [id number] ROOM NO: G.C146 AGE: 62 REPORT TYPE: [...] Dictated: 01/08/2023 18:22:31 Date Transcribed: 01/08/2023 19:55:35 /[facility] [place] Receipt ID: [id number] Authenticated and Edited by Skip Jaffe MD On 01/22/23 5:18:46 AM at 0520 PATIENT NAME: MATHEW CASTILLO [facility] 2023-01-08 17:58:00 [facility] ([facility]) Urology Progress Note REPORT#:[id number] REPORT STATUS: Signed REPORT INITIALIZATION DATE:01/08/23 TIME: 1757 PATIENT: MATHEW CASTILLO UNIT #: [id number] ROOM/BED: [address] : 59 AGE: 62 SEX: M [...] in situ Results Findings/Data: Laboratory Tests: 01/08 325 Chemistry Sodium (134 - 147 [...] % (Auto) (14.0 - 32.0 %) 22.3 [place] % (Auto) (4.8 - 9.0 %) 6.9 Eos % (Auto) (0.3 - 3.7 %) 9.9 H Baso % (Auto) (0.0 - 2.0 %) 0.9 Neut # (Auto) (2.0 - 7.6 x10 3/uL) 3.89 Lymph # (Auto) (1.0 - 3.8 x10 3/uL) 1.46 [place] # (Auto) (0.1 - 0.8 x10 3/uL) [...] discharge with black tomorrow at 1759 RPT #:[id number] END OF REPORT [facility] 2023-01-08 02:42:00 [facility] ([facility]) Infectious Dis. Progress Note REPORT#:[id number] REPORT STATUS: Signed REPORT INITIALIZATION DATE:01/08/23 TIME: 024 PATIENT: MATHEW CASTILLO UNIT #: [id number] ROOM/BED: [place] [address] : 59 AGE: 62 SEX: M ATTEND: Salinas Alba MD ADM AUTHOR: Skip Jaffe MD REPT SERVICE DT/TIME: 01/07/230 * ALL edits or amendments must be [...] patient on IV Zosyn. at 0353 RPT #:[id number] END OF REPORT [facility] 2023-01-07 21:05:00 [facility] Internal Medicine Prog. Note REPORT#:[id number] REPORT STATUS: Signed REPORT INITIALIZATION DATE:01/07/23 TIME: 2104 PATIENT: MATHEW CASTILLO UNIT #: [id number] ROOM/BED: [place] [address] : 59 AGE: 62 SEX: M ATTEND: Salinas Alba MD ADM AUTHOR: Sofia Cheng NP REPT SERVICE DT/TIME: 01/07/232104 * ALL edits or amendments must be made on the electronic/computer document * Subjective Chief complaint: Hematuria HPI: 62-year-old male with last medical history of, BPH, s/p bladder lift yesterday by Dr. Jones transferred from [place] for urology evaluation secondary to hematuria after bladder irrigation failed. pt was seen and evaluated by Dr. 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 Last admitted to [facility] on 10/16/22 with urinary retention. Abnormal [...] Sodium Chloride (SODIUM CHLORIDE 0.9%) 1,000 ML .[id number] IV Sodium Chloride (SODIUM CHLORIDE 0.9%) 1,000 [...] % (Auto) (14.0 - 32.0 %) 21.2 [place] % (Auto) (4.8 - 9.0 %) 7.2 Eos % (Auto) (0.3 - 3.7 %) 10.4 H Baso % (Auto) (0.0 - 2.0 %) 0.8 Neut # (Auto) (2.0 - 7.6 x10 3/uL) 3.56 Lymph # (Auto) (1.0 - 3.8 x10 3/uL) 1.26 [place] # (Auto) (0.1 - 0.8 x10 3/uL) [...] of motion, normal sensory, normal motor function Neuro/GAS UTILITY WORKER: 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 Jones transferred from [place] for urology evaluation secondary to hematuria after bladder irrigation failed. pt was seen and evaluated by Dr. 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 Last admitted to [facility] on 10/16/22 with urinary retention. Abnormal [...] medications and present care at 2222 at 0766 RPT #:[id number] END OF REPORT [facility] 2023-01-07 16:17:00 [facility] ([facility]) Urology Progress Note REPORT#:[id number] REPORT STATUS: Signed REPORT INITIALIZATION DATE:01/07/23 TIME: 1616 PATIENT: MATHEW CASTILLO UNIT #: [id number] ROOM/BED: [place] [address] : 59 AGE: 62 SEX: M ATTEND: [...] - discharge with black tomorrow at 1617 [facility] #:[id number] END OF REPORT [facility] 2023-01-07 05:20:00 [id number] [place], [place] [address] PATIENT NAME: MATHEW CASTILLO ADMIT DATE: 01/06/23 ACCOUNT NO: [id number] ROOM NO: [facility] AGE: 62 REPORT TYPE: PROGRESS NOTE SEX: [...] Date Transcribed: 01/07/2023 05:56:47 ESTRADA/JORGE Receipt ID: [id number] Authenticated and Edited by Skip Jaffe MD On 01/22/23 5:18:20 AM at 0520 PATIENT NAME: MATHEW CASTILLO [facility] 2023-01-06 21:39:00 [facility]) Internal Medicine Prog. Note REPORT#:[id number] REPORT STATUS: Signed REPORT INITIALIZATION DATE:01/06/23 TIME: 2138 PATIENT: MATHEW CASTILLO UNIT #: [id number] ROOM/BED: [place] [address] : 59 AGE: 62 SEX: M ATTEND: Salinas Alba MD ADM AUTHOR: Sofia Cheng LIFT DRIVER REPT SERVICE DT/TIME: 01/06/232138 * ALL edits or amendments must be made on the electronic/computer document * Subjective Chief complaint: Hematuria HPI: 62-year-old male with last medical history of, BPH, s/p bladder lift yesterday by Dr. Jones transferred from [place] for urology evaluation secondary to hematuria after bladder irrigation failed. pt was seen and evaluated by Dr. 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 Last admitted to [facility] on 10/16/22 with urinary retention. Abnormal [...] Sodium Chloride (SODIUM CHLORIDE 0.9%) 1,000 ML .[id number] IV Sodium Chloride (SODIUM CHLORIDE 0.9%) 1,000 [...] (Auto) (14.0 - 32.0 %) 11.8 L [place] % (Auto) (4.8 - 9.0 %) 7.5 Eos % (Auto) (0.3 - 3.7 %) 3.2 Baso % (Auto) (0.0 - 2.0 %) 0.4 Neut # (Auto) (2.0 - 7.6 x10 3/uL) 7.43 Lymph # (Auto) (1.0 - 3.8 x10 3/uL) 1.14 [place] # (Auto) (0.1 - 0.8 x10 3/uL) [...] of motion, normal sensory, normal motor function Neuro/GAS UTILITY WORKER: 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 Jones transferred from [place] for urology evaluation secondary to hematuria after bladder irrigation failed. pt was seen and evaluated by Dr. 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 Last admitted to [facility] on 10/16/22 with urinary retention. Abnormal [...] supportive care at 0015 at 0740 RPT #:[id number] END OF REPORT [facility] 2023-01-06 19:39:00 [facility] ([facility]) Urology Progress Note REPORT#:[id number] REPORT STATUS: Signed REPORT INITIALIZATION DATE:01/06/23 TIME: 1938 PATIENT: MATHEW CASTILLO UNIT #: [id number] ROOM/BED: [place] [address] : 59 AGE: 62 SEX: M ATTEND: [...] (Auto) (14.0 - 32.0 %) 11.8 L [place] % (Auto) (4.8 - 9.0 %) 7.5 Eos % (Auto) (0.3 - 3.7 %) 3.2 Baso % (Auto) (0.0 - 2.0 %) 0.4 Neut # (Auto) (2.0 - 7.6 x10 3/uL) 7.43 Lymph # (Auto) (1.0 - 3.8 x10 3/uL) 1.14 [place] # (Auto) (0.1 - 0.8 x10 3/uL) [...] wean cbi as tolerated at 1941 RPT #:[id number] END OF REPORT [facility] 2023-01-06 19:19:00 [facility] ([facility]) Infectious Dis. Progress Note REPORT#:[id number] REPORT STATUS: Signed REPORT INITIALIZATION DATE:01/06/23 TIME: 1918 PATIENT: MATHEW CASTILLO UNIT #: [id number] ROOM/BED: [place] [address] : 59 AGE: 62 SEX: M ATTEND: [...] possibility[place] [id number] colony-forming units of the Gram- negative rods. Identification and susceptibility is pending. Keep the patient on IV Zosyn. at 0411 RPT #:[id number] END OF REPORT [facility] 2023-01-06 17:40:00 [id number] [facility] on [place] [address] PATIENT NAME: MATHEW CASTILLO ADMIT DATE: 01/06/23 ACCOUNT NO: [id number] ROOM NO: [facility] AGE: 62 REPORT TYPE: CONSULTATION REPORT SEX: M ADMITTING PHYSICIAN:Salinas Alba MD ATTENDING PHYSICIAN:Salinas Alba MD CONSULTATION DATE: 01/05/2023 INFECTIOUS DISEASE CONSULTATION The patient examined, chart reviewed, old records reviewed. Thank you, Dr. Michael, for asking me to evaluate Mr. Mathew Castillo. HISTORY OF PRESENT ILLNESS: Mr. Castilol is known to me from his recent hospitalization at [facility] in 10/2022. He is a 62-year-old male with a past medical history of schizophrenia, benign prostatic hypertrophy with recurrent urinary symptomatology, history of previous episode of urinary retention due to bladder neck obstruction requiring indwelling Black catheter placement and hospitalization in October of 2022. The patient lives in [place] and he had an outpatient prostate procedure done by Dr. Dave Jones with UroLift on Friday01/03/2023 and was discharged home on the same day. The patient went back to [place]. However, subsequently, he started to notice ladan hematuria on Friday and had no other constitutional symptoms including fever or chills. The patient because of worsening hematuria decided to go to the hospital. He went to hospital in [place] and he was told to follow up [...] single. He lives with his daughter in [place]. The patient has been a longtime smoker and continues to smoke. No history of IV drug use, alcohol use, or substance abuse. 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 [place] admission, [place] [address]. The patient had 2 blood cultures done. Urine culture is incubating. ASSESSMENT: The patient with multiple comorbidities including history of benign prostatic hypertrophy with previous episode of urinary retention requiring indwelling Black catheter placement has undergone an UroLift procedure on 01/03/2023, and subsequently was discharged on the same day; however, yesterday he started to have hematuria and was seen at a hospital in [facility] and is transferred to [facility] for further Urology evaluation. 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 today, and he is empirically started on [...] Dictated By: Skip Jfafe MD Date Dictated: 01/06/2023 17:40:46 Date Transcribed: 01/06/2023 21:28:36 DORADO/GLORIA Receipt ID: [id number] Authenticated by Skip Jaffe MD On 01/22/2023 05:17:37 AM at 0517 PATIENT NAME: MATHEW CASTILLO [facility] 2023-01-05 23:00:00 [facility] ([facility]) Infect Disease Consult Note REPORT#:[id number] REPORT STATUS: Signed REPORT INITIALIZATION DATE:01/05/23 TIME: 2299 PATIENT: MATHEW CASTILLO UNIT #: [id number] ROOM/BED: [place] [address] : 59 AGE: 62 SEX: M ATTEND: Salinas Alba MD ADM AUTHOR: Skip Jaffe MD REPT SERVICE DT/TIME: 01/05/23 230 * ALL edits or amendments must be [...] No Known Allergies (10/16/22) at 0526 RPT #:[id number] END OF REPORT [facility] 2023-01-05 13:05:00 [facility] ([facility]) Urology Consult Note REPORT#:[id number] REPORT STATUS: Signed REPORT INITIALIZATION DATE:01/05/23 TIME: 1305 PATIENT: MATHEW CASTILLO UNIT #: [id number] ROOM/BED: [place] [address] : 59 AGE: 62 SEX: M ATTEND: [...] (Auto) (14.0 - 32.0 %) 4.5 L [place] % (Auto) (4.8 - 9.0 %) 6.1 Eos % (Auto) (0.3 - 3.7 %) 0.3 Baso % (Auto) (0.0 - 2.0 %) 0.2 Neut # (Auto) (2.0 - 7.6 x10 3/uL) 15.99 H Lymph # (Auto) (1.0 - 3.8 x10 3/uL) 0.82 L [place] # (Auto) (0.1 - 0.8 x10 3/uL) [...] (Auto) (14.0 - 32.0 %) 5.4 L [place] % (Auto) (4.8 - 9.0 %) 5.3 Eos % (Auto) (0.3 - 3.7 %) 0.0 L Baso % (Auto) (0.0 - 2.0 %) 0.2 Neut # (Auto) (2.0 - 7.6 x10 3/uL) 14.77 H Lymph # (Auto) (1.0 - 3.8 x10 3/uL) 0.90 L [place] # (Auto) (0.1 - 0.8 x10 3/uL) [...] pH (5.0 - 7.0) 7.0 Ur Specific [place] (1.005 - 1.030) 1.005 Urine Protein (NEGATIVE) [...] at this time. NPOpMN Crystal Alberts MD [facility] at 1312 RPT #:[id number] END OF REPORT [facility] 2023-01-05 11:34:00 [facility] ([facility]) History Physical - Adult REPORT#:[id number] REPORT STATUS: Signed REPORT INITIALIZATION DATE:01/05/23 TIME: 1133 PATIENT: MATHEW CASTILLO UNIT #: [id number] ROOM/BED: [place] [address] : 59 AGE: 62 SEX: M ATTEND: Salinas Alba MD ADM AUTHOR: Sofia Cheng LIFT DRIVER REPT SERVICE DT/TIME: 01/05/23 1134 * ALL edits or amendments must be made on the electronic/computer document * History of Present Illness HPI Chief complaint: Hematuria HPI: 62-year-old male with last medical history of, BPH, s/p bladder lift yesterday by Dr. Jones transferred from [place] for urology evaluation secondary to hematuria after bladder irrigation failed. pt was seen and evaluated by Dr. 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 Last admitted to [facility] on 10/16/22 with urinary retention. Abnormal [...] of motion, normal sensory, normal motor function Neuro/GAS UTILITY WORKER: alert, oriented X 3 Skin: dry, [...] (Auto) (14.0 - 32.0 %) 4.5 L [place] % (Auto) (4.8 - 9.0 %) 6.1 Eos % (Auto) (0.3 - 3.7 %) 0.3 Baso % (Auto) (0.0 - 2.0 %) 0.2 Neut # (Auto) (2.0 - 7.6 x10 3/uL) 15.99 H Lymph # (Auto) (1.0 - 3.8 x10 3/uL) 0.82 L [place] # (Auto) (0.1 - 0.8 x10 3/uL) [...] (Auto) (14.0 - 32.0 %) 5.4 L [place] % (Auto) (4.8 - 9.0 %) 5.3 Eos % (Auto) (0.3 - 3.7 %) 0.0 L Baso % (Auto) (0.0 - 2.0 %) 0.2 Neut # (Auto) (2.0 - 7.6 x10 3/uL) 14.77 H Lymph # (Auto) (1.0 - 3.8 x10 3/uL) 0.90 L [place] # (Auto) (0.1 - 0.8 x10 3/uL) [...] pH (5.0 - 7.0) 7.0 Ur Specific [place] (1.005 - 1.030) 1.005 Urine Protein (NEGATIVE) [...] SCAN - CT ABD PELVIS W/CONT 01/04 8640 Report Impression - Status: SIGNED Entered: 01/04/2023 4812 IMPRESSION: 1. Prostatomegaly. Decompressed bladder with a Black in place. 2. No hydronephrosis. No enhancing renal masses. 3. Cholelithiasis and mildly distended gallbladder. 4. Moderate hiatal hernia. Impression By: Nick Magaña M.D. Diagnosis, Assessment Plan Free Text DxA P Notes Free Text DxA P Notes: Assessment: 62-year-old male with last medical history of, BPH, s/p bladder lift yesterday by Dr. Jones transferred from [place] for urology evaluation secondary to hematuria after bladder irrigation failed. pt was seen and evaluated by Dr. 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 Last admitted to [facility] on 10/16/22 with urinary retention. Abnormal [...] clinical course at 0055 at 0739 RPT #:[id number] END OF REPORT [facility] 2023-01-05 01:59:00 [facility] ([facility]) Clinical Note REPORT#:[id number] REPORT STATUS: Signed REPORT INITIALIZATION DATE:01/05/23 TIME: 158 PATIENT: MATHEW CASTILLO UNIT #: [id number] ROOM/BED: [place] [address] : 59 AGE: 62 SEX: M ATTEND: Salinas Alba MD ADM AUTHOR: Sofia Cheng NP REPT SERVICE DT/TIME: 01/05/23158 * ALL edits or amendments must be made on the electronic/computer document * Clinical Note Note: Clinical data reviewed Orders placed at 0222 RPT #:[id number] END OF REPORT [facility] 2023-01-04 20:02:00 [facility] ([facility]) EMERGENCY PROVIDER REPORT REPORT#:[id number] REPORT STATUS: Signed DATE:01/04/23 TIME: 2001 PATIENT: MATHEW CASTILLO UNIT #: [id number] ROOM/BED: [facility]-1 AGE: 62 SEX: M PCP PHYS: Lakhwinder Guillermo MD SERVICE AUTHOR: Vee Horton * ALL [...] Per daughter at bedside 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 [...] 01/04/232000: [Embedded Image Not Available] Laboratory Tests: 01/04 Chemistry Sodium (134 - 147 mEq/L) 133 [...] (Auto) (14.0 - 32.0 %) 5.4 L [place] % (Auto) (4.8 - 9.0 %) 5.3 Eos % (Auto) (0.3 - 3.7 %) 0.0 L Baso % (Auto) (0.0 - 2.0 %) 0.2 Neut # (Auto) (2.0 - 7.6 x10 3/uL) 14.77 H Lymph # (Auto) (1.0 - 3.8 x10 3/uL) 0.90 L [place] # (Auto) (0.1 - 0.8 x10 3/uL) [...] pH (5.0 - 7.0) 7.0 Ur Specific [place] (1.005 - 1.030) 1.005 Urine Protein (NEGATIVE) [...] indwelling black cath s/p urolift 1 day LIVESTOCK NUTRITIONIST presents to ED 2/2 gross hematuria. Tachycardic [...] Room air 01/04 1926 Temp 37.4 01/04 192 Pulse 102 01/04 1926 Resp 16 01/04 1926 All vital signs available at the time of this entry have been reviewed. Condition Guarded Clinical Impression Clinical Impression Primary Impression: Gross hematuria Secondary Impressions: Leukocytosis, UTI (urinary tract infection) Time of Impression 0040 Disposition Decision Hospitalize Hosp Physician Name Salinas Alba MD Hosp Physician Hospitalist Request Time 003 Request Date 01/05/23 )( Accepts Hospitalization Yes [...] Saw Pt Alone I have reviewed the PA/LIFT DRIVER's note and plan of care. I was available for consultation as needed at all times during the patient's visit in the emergency department. I agree with the clinical impression, plan and disposition. at 2148 at 0552 RPT #:[id number] END OF REPORT [facility] 2022-11-19 18:14:00 [facility] ([facility]) Discharge Summary REPORT#:[id number] REPORT STATUS: Signed DATE:11/19/22 TIME: 1813 PATIENT: MATHEW CASTILLO UNIT #: [id number] ROOM/BED: [place] [address] : 59 AGE: 62 SEX: M ATTEND: [...] last medical history of, BPH, transferred from [place] for urology evaluation and treatment secondary to [...] of motion, normal sensory, normal motor function Neuro/GAS UTILITY WORKER: alert, oriented X 3 Skin: dry, [...] Discharge Instructions Additional Discharge Routines: PCP Follow-Up, Bid Clerk Follow-Up )( Diet: Regular Follow-up Appointments PCP [...] instructions: FOR REMOVAL OF BLACK at 113[address] [facility] #:[id number] END OF REPORT [facility] 2022-10-26 20:52:00 [id number] [address] PATIENT NAME: MATHEW CASTILLO ADMIT DATE: 10/16/22 ACCOUNT NO: [id number] ROOM NO: [facility] AGE: 62 REPORT TYPE: PROGRESS NOTE SEX: [...] Emergency Room where he was transferred from [place] with acute urinary retention. He had 3 [...] Dictated: 10/26/2022 20:52:41 Date Transcribed: 10/26/2022 21:14:58 DORADO/JORGE/CORETTA Receipt ID: [id number] Authenticated and Edited by Skip Jaffe MD On 11/02/22 2:24:00 AM at 0323 PATIENT NAME: MATHEW CASTILLO [facility] 2022-10-26 19:14:00 [facility] Internal Medicine Prog. Note REPORT#:[id number] REPORT STATUS: Signed DATE:10/26/22 TIME: 1913 PATIENT: MATHEW CASTILLO UNIT #: [id number] [facility]OM[facility]BED: [facility] : 59 AGE: 62 SEX: M ATTEND: Salinas Alba MD ADM AUTHOR: Sofia Cheng LIFT DRIVER * ALL edits or amendments must be made on the electronic/computer document * Subjective Chief complaint: Abdominal distention, hydronephrosis HPI: 62-year-old male with last medical history of, BPH, transferred from [place] for urology evaluation and treatment secondary to [...] of motion, normal sensory, normal motor function Neuro/GAS UTILITY WORKER: 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 Rupture of ureter Free Text DxA P Notes Free text DxA P notes: Assessment: 62-year-old male with last medical history of, BPH, transferred from [place] for urology evaluation and treatment secondary to [...] supportive care at 2225 at 0830 RPT #:[id number] END OF REPORT [facility] 2022-10-26 13:41:00 [facility] ([facility] Nephrology Progress Note REPORT#:[id number] REPORT STATUS: Signed DATE:10/26/22 TIME: 1341 PATIENT: MATHEW CASTILLO UNIT #: [id number] ROOM/BED: [place] [address] : 59 AGE: 62 SEX: M ATTEND: [...] urine in his bladder. CT abdomen from [place] showed that the patient has a very [...] urine in his bladder. CT abdomen from [place] showed that the patient has a very [...] above A/P at 1342 at 1813 RPT #:[id number] END OF REPORT [facility] 2022-10-25 21:28:00 [facility] ([facility]) Infectious Dis. Progress Note REPORT#:[id number] REPORT STATUS: Signed DATE:10/25/22 TIME: 2127 PATIENT: MATHEW CASTILLO UNIT #: [id number] ROOM/BED: 6630-1 : 59 AGE: 62 SEX: [...] new nosocomial acquired infection. at 0256 RPT #:[id number] END OF REPORT [facility] 2022-10-25 19:13:00 [facility] Nephrology Progress Note REPORT#:[id number] REPORT STATUS: Signed DATE:10/25/22 TIME: 1912 PATIENT: MATHEW CASTILLO UNIT #: [id number] ROOM/BED: [place] [address] : 59 AGE: 62 SEX: M ATTEND: [...] (Auto) (14.0 - 32.0 %) 10.6 L [place] % (Auto) (4.8 - 9.0 %) 4.4 L Eos % (Auto) (0.3 - 3.7 %) 2.4 Baso % (Auto) (0.0 - 2.0 %) 0.5 Neut # (Auto) (2.0 - 7.6 x10 3/uL) 12.30 H Lymph # (Auto) (1.0 - 3.8 x10 3/uL) 1.60 [place] # (Auto) (0.1 - 0.8 x10 3/uL) [...] urine in his bladder. CT abdomen from [place] showed that the patient has a very [...] urine in his bladder. CT abdomen from [place] showed that the patient has a very [...] abx per primary team. at 1914 RPT #:[id number] END OF REPORT [facility] 2022-10-25 19:12:00 [facility] Internal Medicine Prog. Note REPORT#:[id number] REPORT STATUS: Signed DATE:10/25/22 TIME: 1911 PATIENT: MATHEW CASTILLO UNIT #: [id number] ROOM/BED: [place] [address] : 59 AGE: 62 SEX: M ATTEND: Salinas Alba MD ADM AUTHOR: Sofia Cheng NP * ALL edits or amendments must be made on the electronic/computer document * Subjective Chief complaint: Abdominal distention, hydronephrosis HPI: 62-year-old male with last medical history of, BPH, transferred from [place] for urology evaluation and treatment secondary to [...] (Auto) (14.0 - 32.0 %) 10.6 L [place] % (Auto) (4.8 - 9.0 %) 4.4 L Eos % (Auto) (0.3 - 3.7 %) 2.4 Baso % (Auto) (0.0 - 2.0 %) 0.5 Neut # (Auto) (2.0 - 7.6 x10 3/uL) 12.30 H Lymph # (Auto) (1.0 - 3.8 x10 3/uL) 1.60 [place] # (Auto) (0.1 - 0.8 x10 3/uL) [...] of motion, normal sensory, normal motor function Neuro/GAS UTILITY WORKER: 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 Rupture of ureter Free Text DxA P Notes Free text DxA P notes: Assessment: 62-year-old male with last medical history of, BPH, transferred from [place] for urology evaluation and treatment secondary to [...] and supportive care at 2224 at 0830 [facility] #:[id number] END OF REPORT [facility] 2022-10-25 10:44:00 [id number] [place], [place] [address] PATIENT NAME: MATHEW CASTILLO ADMIT DATE: 10/16/22 ACCOUNT NO: [id number] ROOM NO: [facility] AGE: 62 REPORT TYPE: PROGRESS NOTE SEX: [...] through Emergency Room initially to hospital in [place] with urinary retention of 2 days' duration [...] Date Transcribed: 10/25/2022 11:24:45 DORADO/JENNI Receipt ID: [id number] Authenticated and Edited by Skip Jaffe MD On 11/02/22 2:23:50 AM at 0323 PATIENT NAME: MATHEW CASTILLO [facility] 2022-10-24 22:59:00 [facility] Internal Medicine Prog. Note REPORT#:[id number] REPORT STATUS: Signed DATE:10/24/22 TIME: 2258 PATIENT: MATHEW CASTILLO UNIT #: [id number] ROOM/BED: [place] [address] : 59 AGE: 62 SEX: M ATTEND: Salinas Alba MD ADM AUTHOR: Sofia Cheng LIFT DRIVER * ALL edits or amendments must be made on the electronic/computer document * Subjective Chief complaint: Abdominal distention, hydronephrosis HPI: 62-year-old male with last medical history of, BPH, transferred from [place] for urology evaluation and treatment secondary to [...] of motion, normal sensory, normal motor function Neuro/GAS UTILITY WORKER: 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 Rupture of ureter Free Text DxA P Notes Free text DxA P notes: Assessment: 62-year-old male with last medical history of, BPH, transferred from [place] for urology evaluation and treatment secondary to [...] medications and present care at 2223 at 1935 RPT #:[id number] END OF REPORT [facility] 2022-10-24 19:41:00 [facility] ([facility]) Infectious Dis. Progress Note REPORT#:[id number] REPORT STATUS: Signed DATE:10/24/22 TIME: 1940 PATIENT: MATHEW CASTILLO UNIT #: [id number] [place] [facility] : 59 AGE: 62 SEX: M ATTEND: [...] patient closely for any diarrhea. at 0316 [facility] #:[id number] END OF REPORT [facility] 2022-10-24 19:12:00 [id number] [address] PATIENT NAME: MATHEW CASTILLO ADMIT DATE: 10/16/22 ACCOUNT NO: [id number] ROOM NO: [facility] AGE: 62 REPORT TYPE: PROGRESS NOTE SEX: [...] problems was initially admitted to hospital in [place] where he had presented with urinary retention. [...] Dictated: 10/24/2022 19:12:07 Date Transcribed: 10/24/2022 19:51:44 DORADO/GLORIA Receipt ID: [id number] Authenticated and Edited by Skip Jaffe MD On 11/02/22 2:23:34 AM at 0323 PATIENT NAME: MATHEW CASTILLO [facility] 2022-10-24 16:08:00 [facility] ([facility]) Nephrology Progress Note REPORT#:[id number] REPORT STATUS: Signed DATE:10/24/22 TIME: 1607 PATIENT: MATHEW CASTILLO UNIT #: [id number] ROOM/BED: [place] [address] : 59 AGE: 62 SEX: M ATTEND: [...] urine in his bladder. CT abdomen from [place] showed that the patient has a very [...] urine in his bladder. CT abdomen from [place] showed that the patient has a very [...] above A/P at 1740 at 2124 RPT #:[id number] END OF REPORT [facility] 2022-10-23 21:33:00 [facility] Internal Medicine Prog. Note REPORT#:[id number] REPORT STATUS: Signed DATE:10/23/22 TIME: 2132 PATIENT: MATHEW CASTILLO UNIT #: [id number] [place]ED[place] [facility] : 59 AGE: 62 SEX: M ATTEND: Salinas Alba MD ADM AUTHOR: Sofia Cheng NP * ALL edits or amendments must be made on the electronic/computer document * Subjective Chief complaint: Abdominal distention, hydronephrosis HPI: 62-year-old male with last medical history of, BPH, transferred from [place] for urology evaluation and treatment secondary to [...] 2.40 mg/dL) 1.53 L 10/22 1700 1119 07 0637 Chemistry Sodium (134 - 147 mEq/L) [...] Temp 37.1 10/23 1899 Pulse 69 10/23 1900 Resp 16 10/23 1899 24 hour I O ending at 0700: 10/23 0600 10/22 1900 Intake Total 870 Output Total [...] of motion, normal sensory, normal motor function Neuro/GAS UTILITY WORKER: 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 Rupture of ureter Free Text DxA P Notes Free text DxA P notes: Assessment: 62-year-old male with last medical history of, BPH, transferred from [place] for urology evaluation and treatment secondary to [...] Fall precaution at 0250 at 0842 RPT #:[id number] END OF REPORT [facility] 2022-10-23 18:51:00 [facility] ([facility]) Infectious Dis. Progress Note REPORT#:[id number] REPORT STATUS: Signed DATE:10/23/22 TIME: 1850 PATIENT: MATHEW CASTILLO UNIT #: [id number] [place]BED: [facility] : 59 AGE: 62 SEX: M ATTEND: [...] closely for any diarrhea. at 0256 RPT #:[id number] END OF REPORT [facility] 2022-10-23 18:27:00 [id number] [place] [address] PATIENT NAME: MATHEW CASTILLO ADMIT DATE: 10/16/22 ACCOUNT NO: [id number] ROOM NO: G.6630 AGE: 62 REPORT TYPE: [...] Emergency Room where he was transferred from [facility] because of urinary retention. The patient presented to [facility] with 2 days' history of [...] temperature of up to 37.8 degrees Celsius administrative processor on 10/20/2022, and at that time, he [...] Dictated: 10/23/2022 18:27:31 Date Transcribed: 10/23/2022 18:54:06 /GLORIA Receipt ID: [id number] Authenticated and Edited by Skip Jaffe MD On 11/02/22 2:23:13 AM at 0225 PATIENT NAME: MATHEW CASTILLO [facility] 2022-10-23 13:24:00 [facility] Nephrology Progress Note REPORT#:[id number] REPORT STATUS: Signed DATE:10/23/22 TIME: 1323 PATIENT: MATHEW CASTILLO UNIT #: [id number] ROOM/BED: 6630-1 : 59 AGE: 62 SEX: [...] urine in his bladder. CT abdomen from [place] showed that the patient has a very [...] urine in his bladder. CT abdomen from [place] showed that the patient has a very [...] patient's nurse, and . Toby Koehler 10/23/22 8160: Attestations Physician Attestation Reviewed findings plan: Patient examined Renal function improved and wnl, black to gravity, -2/2 post-obstrucitve uropathy, replace electrolytes as needed, emperic antibiotics per admitting team, agree with above A/P at 1741 at 2253 RPT #:[id number] END OF REPORT [facility] 2022-10-22 18:32:00 [facility] ([facility]) Infectious Dis. Progress Note REPORT#:[id number] REPORT STATUS: Signed DATE:10/22/22 TIME: 1831 PATIENT: MATHEW CASTILLO UNIT #: [id number] ROOM/BED: [place] [address] : 59 AGE: 62 SEX: M ATTEND: [...] low-grade temperature of the 37.6 degree C administrative processor today. Remains afebrile at the present time. [...] IV antibiotics for now. at 0219 RPT #:[id number] END OF REPORT [facility] 2022-10-22 18:20:00 [id number] [place], [place] [address] PATIENT NAME: MATHEW CASTILLO ADMIT DATE: 10/16/22 ACCOUNT NO: [id number] ROOM NO: G.6630 AGE: 62 REPORT TYPE: [...] lymphocyte, 4%, monocyte, 2% eosinophils. PATIENT NAME: AMTHEW CASTILLO Bilateral lower extremity venous Doppler studies show no evidence of DVT. C-reactive protein is 36. Serum sodium is 140, potassium 3.0, chloride 105, bicarbonate 29, glucose 89, BUN 10, creatinine 0.9, estimated GFR is 96, calcium is 7.3, magnesium is 1.50. D-dimer is 5949. ASSESSMENT AND PLAN: The patient with multiple comorbidities, was initially admitted through emergency room at [facility] with acute urinary retention. The [...] and had been doing fairly well until administrative processor yesterday when he started to have fever [...] Dictated: 10/22/2022 18:20:30 Date Transcribed: 10/22/2022 19:52:40 /[facility] Receipt ID: [id number] Authenticated and Edited by Skip Jaffe MD On 11/02/22 2:22:51 AM at 0323 PATIENT NAME: MATHEW CASTILLO [facility] 2022-10-22 18:15:00 [facility] Internal Medicine Prog. Note REPORT#:[id number] REPORT STATUS: Signed DATE:10/22/22 TIME: 1814 PATIENT: MATHEW CASTILLO UNIT #: [id number] ROOM/BED: [place] [address] : 59 AGE: 62 SEX: M ATTEND: Salinas Alba MD ADM AUTHOR: Sofia Cheng NP * ALL edits or amendments must be made on the electronic/computer document * Subjective Chief complaint: Abdominal distention, hydronephrosis HPI: 62-year-old male with last medical history of, BPH, transferred from [place] for urology evaluation and treatment secondary to [...] of motion, normal sensory, normal motor function Neuro/GAS UTILITY WORKER: 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 Rupture of ureter Free Text DxA P Notes Free text DxA P notes: Assessment: 62-year-old male with last medical history of, BPH, transferred from [place] for urology evaluation and treatment secondary to [...] and supportive care at 0314 at 0842 [facility] #:[id number] END OF REPORT [facility] 2022-10-22 09:31:00 [facility] ([facility] Nephrology Progress Note REPORT#:[id number] REPORT STATUS: Signed DATE:10/22/22 TIME: 930 PATIENT: MATHEW CASTILLO UNIT #: [id number] ROOM/BED: [place] [address] : 59 AGE: 62 SEX: M ATTEND: [...] urine in his bladder. CT abdomen from [place] showed that the patient has a very [...] urine in his bladder. CT abdomen from [place] showed that the patient has a very [...] patient's nurse, and . Toby Koehler 10/22/22 2096: Attestations Physician Attestation Reviewed findings plan: Patient examined Renal function improved and wnl, black to gravity, -2/2 post-obstrucitve uropathy, replace electrolytes as needed, agree with above A/P at 1842 at 5927 RPT #:[id number] END OF REPORT [facility] 2022-10-21 20:48:00 [facility] Internal Medicine Prog. Note REPORT#:[id number] REPORT STATUS: Signed DATE:10/21/22 TIME: 2047 PATIENT: MATHEW CASTILLO UNIT #: [id number] ROOM/BED: [place] [address] : 59 AGE: 62 SEX: M ATTEND: Salinas Alba MD ADM AUTHOR: Sofia Cheng NP * ALL edits or amendments must be made on the electronic/computer document * Subjective Chief complaint: Abdominal distention, hydronephrosis HPI: 62-year-old male with last medical history of, BPH, transferred from [place] for urology evaluation and treatment secondary to [...] of motion, normal sensory, normal motor function Neuro/GAS UTILITY WORKER: 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 Rupture of ureter Free Text DxA P Notes Free text DxA P notes: Assessment: 62-year-old male with last medical history of, BPH, transferred from [place] for urology evaluation and treatment secondary to [...] and present at 0104 at 1009 RPT #:[id number] END OF REPORT [facility] 2022-10-21 19:01:00 [facility] ([facility]) Infectious Dis. Progress Note REPORT#:[id number] REPORT STATUS: Signed DATE:10/21/22 TIME: 190 PATIENT: MATHEW CASTILLO UNIT #: [id number] ROOM/BED: [place] [address] : 59 AGE: 62 SEX: M ATTEND: [...] Discussed with Skylar MENDIOLA. at 0242 RPT #:[id number] END OF REPORT [facility] 2022-10-21 11:23:00 [facility] ([facility]) Nephrology Progress Note REPORT#:[id number] REPORT STATUS: Signed DATE:10/21/22 TIME: 1122 PATIENT: MATHEW CASTILLO UNIT #: [id number] ROOM/BED: [place] [address] : 59 AGE: 62 SEX: M ATTEND: [...] urine in his bladder. CT abdomen from [place] showed that the patient has a very [...] urine in his bladder. CT abdomen from [place] showed that the patient has a very [...] above A/P at 1640 at 2054 RPT #:[id number] END OF REPORT [facility] 2022-10-21 03:59:00 [id number] [address] PATIENT NAME: MATHEW CASTILLO ADMIT DATE: 10/16/22 ACCOUNT NO: [id number] ROOM NO: G.6630 AGE: 62 REPORT TYPE: [...] who was initially admitted to hospital in [place] where he presented with acute urinary retention. [...] temperature of up to 37.8 degrees Celsius administrative processor today and after that he had been only having low-grade fever. Denies any nausea, vomiting or diarrhea. Denies any chest pain, cough, expectoration, or shortness of breath. He continues to have a Black catheter in place and admits to having suprapubic area soreness and pain, however, states that the pain and soreness he had at the time of presentation to the [facility] has resolved. 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 IMPRESSION: The patient with multiple comorbidities including history of schizophrenia and benign prostatic hypertrophy with worsening urinary difficulties for last over 2 years, was admitted through emergency room where he was transferred from [facility] because of need for urology [...] to 37.8 degrees Celsius last night and administrative processor and had developed marked leukocytosis. Clinically, he [...] Date Transcribed: 10/21/2022 04:40:04 DORADO/MAN Receipt ID: [id number] Authenticated by Skip Jaffe MD On 11/02/2022 02:22:37 AM at 0222 PATIENT NAME: MATHEW CASTILLO [facility] 2022-10-20 20:34:00 [facility]) Nephrology Progress Note REPORT#:[id number] REPORT STATUS: Signed DATE:10/20/22 TIME: 2033 PATIENT: MATHEW CASTILLO UNIT #: [id number] ROOM/BED: 6630-1 : 59 AGE: 62 SEX: [...] Coagulation INR (0.8 - 1.2) 1.1 PTT ([place]) (25.0 - 39.5 Seconds) 26.1 PT Patient/Control [...] - 32.0 %) 9.5 L 7.3 L [place] % (Auto) (4.8 - 9.0 %) 7.2 7.5 Eos % (Auto) (0.3 - 3.7 %) 2.6 2.2 Baso % (Auto) (0.0 - 2.0 %) 0.4 0.3 Neut # (Auto) (2.0 - 7.6 x10 3/uL) 13.75 H 15.38 H Lymph # (Auto) (1.0 - 3.8 x10 3/uL) 1.67 1.40 [place] # (Auto) (0.1 - 0.8 x10 3/uL) [...] pulmonary edema. No focal consolidation. Impression By: [email or web address] - Reinaldo Jacobs M.D. Diagnosis, Assessment Plan Free Text A P: Assessment and Plan: CHANDRA (Resolved) -Renal function improved and wnl, black to gravity, on bicarb gtt, will d/c now. -2/2 post-obstrucitve uropathy, monitor for post-obstructive diuresis. -UA, urine lytes requested -Per Urology note: Reportedly the patient had 3L of urine in his bladder. CT abdomen from [place] showed that the patient has a very [...] urine in his bladder. CT abdomen from [place] showed that the patient has a very [...] Schizophrenia -Home medications resumed at 2150 RPT #:[id number] END OF REPORT [facility] 2022-10-20 18:11:00 [facility] Internal Medicine Prog. Note REPORT#:[id number] REPORT STATUS: Signed DATE:10/20/22 TIME: 1810 PATIENT: MATHEW CASTILLO UNIT #: [id number] ROOM/BED: [place] [address] : 59 AGE: 62 SEX: M ATTEND: Salinas Alba MD ADM AUTHOR: Sofia Cheng NP * ALL edits or amendments must be made on the electronic/computer document * Subjective Chief complaint: Abdominal distention, hydronephrosis HPI: 62-year-old male with last medical history of, BPH, transferred from [place] for urology evaluation and treatment secondary to [...] Room air 10/20 162 Temp 37.1 10/20 162 Pulse 77 10/20 1620 Resp 15 10/20 [...] - 32.0 %) 9.5 L 7.3 L [place] % (Auto) (4.8 - 9.0 %) 7.2 7.5 Eos % (Auto) (0.3 - 3.7 %) 2.6 2.2 Baso % (Auto) (0.0 - 2.0 %) 0.4 0.3 Neut # (Auto) (2.0 - 7.6 x10 3/uL) 13.75 H 15.38 H Lymph # (Auto) (1.0 - 3.8 x10 3/uL) 1.67 1.40 [place] # (Auto) (0.1 - 0.8 x10 3/uL) [...] 106 Report Impression - Status: SIGNED Entered: 10/20/20228 IMPRESSION: Mild interstitial pulmonary edema. No focal [...] of motion, normal sensory, normal motor function Neuro/GAS UTILITY WORKER: 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 Rupture of ureter Free Text DxA P Notes Free text DxA P notes: Assessment: 62-year-old male with last medical history of, BPH, transferred from [place] for urology evaluation and treatment secondary to [...] and supportive care at 0141 at 1009 [facility] #:[id number] END OF REPORT [facility] 2022-10-20 17:06:00 [facility] ([facility]) Infect Disease Consult Note REPORT#:[id number] REPORT STATUS: Signed DATE:10/20/22 TIME: 1706 PATIENT: MATHEW CASTILLO UNIT #: [id number] ROOM/BED: 6630-1 : 59 AGE: 62 SEX: [...] No Known Allergies (10/16/22) at 0239 RPT #:[id number] END OF REPORT [facility] 2022-10-20 01:07:00 [id number] [place] [address] PATIENT NAME: MATHEW CASTILLO ADMIT DATE: 10/16/22 ACCOUNT NO: [id number] ROOM NO: [facility] AGE: 62 REPORT TYPE: eELECTROCARDIOGRAM REPORT SEX: M ADMITTING PHYSICIAN:Salinas Alba MD ATTENDING PHYSICIAN:Salinas Alba MD Order: [id number] Test Reason : Sepsis Test Date/Time Stamp: [place] Oct 20 2022 01:07:09 Blood Pressure : / mmHG Vent. Rate : 076 BPM Atrial Rate : 076 BPM P-R Int : 124 ms QRS Dur : 080 ms QT Int : 414 ms P-R-T Axes : 058 -01 022 degrees QTc Int : 465 ms Normal sinus rhythm Normal ECG No previous ECGs available Confirmed by MD HERRON AHMED ([id number]) on 10/21/2022 12:47:02 PM Referred By: Salinas Dukes Confirmed by:ESMER HERRON MD at 1247 PATIENT NAME: MATHEW CASTILLO [facility] 2022-10-19 22:43:00 [facility] Internal Medicine Prog. Note REPORT#:[id number] REPORT STATUS: Signed DATE:10/19/22 TIME: 2242 PATIENT: MATHEW CASTILLO UNIT #: [id number] ROOM/BED: [place] [address] : 59 AGE: 62 SEX: M ATTEND: Salinas Alba MD ADM AUTHOR: Sofia Cheng NP * ALL edits or amendments must be made on the electronic/computer document * Subjective Chief complaint: Abdominal distention, hydronephrosis HPI: 62-year-old male with last medical history of, BPH, transferred from [place] for urology evaluation and treatment secondary to [...] Laboratory Tests 10/19 10/19 10/19 10/19 10/19 1917 [...] Magnesium (1.80 - 2.40 mg/dL) 1.48 L 10/183 4985 1256 Chemistry POC Glucose (70 - 110 MG/DL) [...] - 32.0 %) 15.7 15.6 10.6 L [place] % (Auto) (4.8 - 9.0 %) 8.5 10.1 H 12.8 H Eos % (Auto) (0.3 - 3.7 %) 6.0 H 7.5 H 2.7 Baso % (Auto) (0.0 - 2.0 %) 0.7 0.7 0.4 Neut # (Auto) (2.0 - 7.6 x10 3/uL) 6.09 5.53 8.23 H Lymph # (Auto) (1.0 - 3.8 x10 3/uL) 1.48 1.39 1.22 [place] # (Auto) (0.1 - 0.8 x10 3/uL) [...] 3/uL) 0.00 0.00 0.00 Laboratory Tests 10/19 0347 Urines Urine Color (YEL/STRAW) YELLOW Urine Appearance (CLEAR) SL CLOUDY Urine pH (5.0 - 7.0) 5.0 Ur Specific [place] (1.005 - 1.030) 1.015 Urine Protein (NEGATIVE) [...] - COMP NASAL Chemistry: 10/19 1615 1135 0795 8127 Chemistry Sodium (134 - 147 mEq/L) 139 [...] 37.2 80 14 105/68 80.3 97 10/19 113 37.0 85 17 142/80 100.6 98 Room air 07/15 0727 37.0 83 14 127/67 87.0 95 [...] of motion, normal sensory, normal motor function Neuro/GAS UTILITY WORKER: 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 Rupture of ureter Free Text DxA P Notes Free text DxA P notes: Assessment: 62-year-old male with last medical history of, BPH, transferred from [place] for urology evaluation and treatment secondary to [...] and present care at 0229 at 1514 [facility] #:[id number] END OF REPORT [facility] 2022-10-19 20:14:00 [facility] ([facility]) Nephrology Progress Note REPORT#:[id number] REPORT STATUS: Signed DATE:10/19/22 TIME: 2013 PATIENT: MATHEW CASTILLO UNIT #: [id number] ROOM/BED: 6630-1 : 59 AGE: 62 SEX: [...] % (Auto) (14.0 - 32.0 %) 15.7 [place] % (Auto) (4.8 - 9.0 %) 8.5 Eos % (Auto) (0.3 - 3.7 %) 6.0 H Baso % (Auto) (0.0 - 2.0 %) 0.7 Neut # (Auto) (2.0 - 7.6 x10 3/uL) 6.09 Lymph # (Auto) (1.0 - 3.8 x10 3/uL) 1.48 [place] # (Auto) (0.1 - 0.8 x10 3/uL) [...] pH (5.0 - 7.0) 5.0 Ur Specific [place] (1.005 - 1.030) 1.015 Urine Protein (NEGATIVE) [...] urine in his bladder. CT abdomen from [place] showed that the patient has a very [...] urine in his bladder. CT abdomen from [place] showed that the patient has a very [...] Schizophrenia -Home medications resumed at 2148 RPT #:[id number] END OF REPORT [facility] 2022-10-18 20:26:00 [facility] Internal Medicine Prog. Note REPORT#:[id number] REPORT STATUS: Signed DATE:10/18/22 TIME: 2025 PATIENT: MATHEW CASTILLO UNIT #: [id number] ROOM/BED: G.6630-1 : 59 AGE: 62 SEX: M ATTEND: Salinas Alba MD ADM AUTHOR: Sofia Cheng NP * ALL edits or amendments must be made on the electronic/computer document * Subjective Chief complaint: Abdominal distention, hydronephrosis HPI: 62-year-old male with last medical history of, BPH, transferred from [place] for urology evaluation and treatment secondary to [...] % (Auto) (14.0 - 32.0 %) 15.6 [place] % (Auto) (4.8 - 9.0 %) 10.1 H Eos % (Auto) (0.3 - 3.7 %) 7.5 H Baso % (Auto) (0.0 - 2.0 %) 0.7 Neut # (Auto) (2.0 - 7.6 x10 3/uL) 5.53 Lymph # (Auto) (1.0 - 3.8 x10 3/uL) 1.39 [place] # (Auto) (0.1 - 0.8 x10 3/uL) [...] of motion, normal sensory, normal motor function Neuro/GAS UTILITY WORKER: 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 Rupture of ureter Free Text DxA P Notes Free text DxA P notes: Assessment: 62-year-old male with last medical history of, BPH, transferred from [place] for urology evaluation and treatment secondary to [...] and supportive care at 2012 at 1301 [facility] #:[id number] END OF REPORT [facility] 2022-10-18 17:48:00 [facility] ([facility] Nephrology Progress Note REPORT#:[id number] REPORT STATUS: Signed DATE:10/18/22 TIME: 1748 PATIENT: MATHEW CASTILLO UNIT #: [id number] ROOM/BED: 6630-1 : 59 AGE: 62 SEX: [...] 10/18 10/18 10/18 10/18 10/17 1118 0740 0577 0518 2012 Chemistry Sodium (134 - 147 mEq/L) [...] % (Auto) (14.0 - 32.0 %) 15.6 [place] % (Auto) (4.8 - 9.0 %) 10.1 H Eos % (Auto) (0.3 - 3.7 %) 7.5 H Baso % (Auto) (0.0 - 2.0 %) 0.7 Neut # (Auto) (2.0 - 7.6 x10 3/uL) 5.53 Lymph # (Auto) (1.0 - 3.8 x10 3/uL) 1.39 [place] # (Auto) (0.1 - 0.8 x10 3/uL) [...] urine in his bladder. CT abdomen from [place] showed that the patient has a very [...] urine in his bladder. CT abdomen from [place] showed that the patient has a very [...] K and magnesium supplementation. at 193 RPT #:[id number] END OF REPORT [facility] 2022-10-17 22:43:00 [facility] Internal Medicine Prog. Note REPORT#:[id number] REPORT STATUS: Signed DATE:10/17/22 TIME: 2242 PATIENT: MATHEW CASTILLO UNIT #: [id number] ROOM/BED: [place] [address] : 59 AGE: 62 SEX: M ATTEND: Salinas Alba MD ADM AUTHOR: Sofia Cheng NP * ALL edits or amendments must be made on the electronic/computer document * Subjective Chief complaint: Abdominal distention, hydronephrosis HPI: 62-year-old male with last medical history of, BPH, transferred from [place] for urology evaluation and treatment secondary to [...] (Auto) (14.0 - 32.0 %) 10.6 L [place] % (Auto) (4.8 - 9.0 %) 12.8 H Eos % (Auto) (0.3 - 3.7 %) 2.7 Baso % (Auto) (0.0 - 2.0 %) 0.4 Neut # (Auto) (2.0 - 7.6 x10 3/uL) 8.23 H Lymph # (Auto) (1.0 - 3.8 x10 3/uL) 1.22 [place]oe # (Auto) (0.1 - 0.8 x10 3/uL) [...] of motion, normal sensory, normal motor function Neuro/GAS UTILITY WORKER: 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 Rupture of ureter Free Text DxA P Notes Free text DxA P notes: Assessment: 62-year-old male with last medical history of, BPH, transferred from [place] for urology evaluation and treatment secondary to [...] supportive care at 0210 at 1300 RPT #:[id number] END OF REPORT [facility] 2022-10-17 17:41:00 [facility] Urology Progress Note REPORT#:[id number] REPORT STATUS: Signed DATE:10/17/22 TIME: 1741 PATIENT: MATHEW CASTILLO UNIT #: [id number] ROOM/BED: [address] : 59 AGE: 62 SEX: M [...] Pulse 92 10/17 1117 Resp 18 10/17 111 O2 Delivery Room air 10/17 0638 24 [...] (Auto) (14.0 - 32.0 %) 10.6 L [place] % (Auto) (4.8 - 9.0 %) 12.8 H Eos % (Auto) (0.3 - 3.7 %) 2.7 Baso % (Auto) (0.0 - 2.0 %) 0.4 Neut # (Auto) (2.0 - 7.6 x10 3/uL) 8.23 H Lymph # (Auto) (1.0 - 3.8 x10 3/uL) 1.22 [place] # (Auto) (0.1 - 0.8 x10 3/uL) [...] cystoscopy. Home with black at 1742 RPT #:[id number] END OF REPORT [facility] 2022-10-17 13:46:00 [facility] Nephrology Progress Note REPORT#:[id number] REPORT STATUS: Signed DATE:10/17/22 TIME: 1346 PATIENT: MATHEW CASTILLO UNIT #: [id number] ROOM/BED: [place] [address] : 59 AGE: 62 SEX: M ATTEND: [...] (Auto) (14.0 - 32.0 %) 10.6 L [place] % (Auto) (4.8 - 9.0 %) 12.8 H Eos % (Auto) (0.3 - 3.7 %) 2.7 Baso % (Auto) (0.0 - 2.0 %) 0.4 Neut # (Auto) (2.0 - 7.6 x10 3/uL) 8.23 H Lymph # (Auto) (1.0 - 3.8 x10 3/uL) 1.22 [place] # (Auto) (0.1 - 0.8 x10 3/uL) [...] urine in his bladder. CT abdomen from [place] showed that the patient has a very [...] urine in his bladder. CT abdomen from [place] showed that the patient has a very [...] above A/P at 1759 at 2234 RPT #:[id number] END OF REPORT [facility] 2022-10-16 15:13:00 [place] [address] PATIENT NAME: MATHEW CASTILLO ADMIT DATE: 10/16/22 ACCOUNT NO: [id number] ROOM NO: [facility] AGE: 62 REPORT TYPE: CONSULTATION REPORT SEX: M ADMITTING PHYSICIAN:Salinas Alba MD ATTENDING PHYSICIAN:Salinas Alba MD CONSULTATION DATE:10/16/2022 REASON FOR CONSULTATION: Hydronephrosis, urinary retention. HISTORY OF PRESENT ILLNESS: This is a 62-year-old male with a history of schizophrenia who was sent in from [place]. He had reportedly almost 3 liters of [...] scan of the abdomen and pelvis from [place]. The patient has a very large distended [...] Date Transcribed: 10/16/2022 16:06:29 /JENNI Receipt ID: [id number] Authenticated and Edited by Dave Jones MD On 11/12/22 1:37:06 PM at 0138 PATIENT NAME: MATHEW CASTILLO [facility] 2022-10-16 12:39:00 [facility] ([facility]) Nephrology Consultation Note REPORT#:[id number] REPORT STATUS: Signed DATE:10/16/22 TIME: 1239 PATIENT: MATHEW CASTILLO UNIT #: [id number] ROOM/BED: [place] [address] : 59 AGE: 62 SEX: M ATTEND: [...] Friday who took him to ER in [place]. He had CT abdomen which revealed b/l [...] (Auto) (14.0 - 32.0 %) 3.8 L [place] % (Auto) (4.8 - 9.0 %) 13.6 H Eos % (Auto) (0.3 - 3.7 %) 0.4 Baso % (Auto) (0.0 - 2.0 %) 0.2 Neut # (Auto) (2.0 - 7.6 x10 3/uL) 8.96 H Lymph # (Auto) (1.0 - 3.8 x10 3/uL) 0.42 L [place] # (Auto) (0.1 - 0.8 x10 3/uL) [...] urine in his bladder. CT abdomen from [place] showed that the patient has a very [...] urine in his bladder. CT abdomen from [place] showed that the patient has a very [...] Friday who took him to ER in [place]. He had CT abdomen which revealed b/l hydronephrosis and concern for possible ureteral rupture. He was transferred to [facility] [place] for Urology evaluation. Initial VS at the [...] Agree with above A/P at 1902 at 2298 RPT #:[id number] END OF REPORT [facility] 2022-10-16 11:15:00 [facility] ([facility]) History Physical - Adult REPORT#:[id number] REPORT STATUS: Signed DATE:10/16/22 TIME: 1115 PATIENT: MATHEW CASTILLO UNIT #: [id number] ROOM/BED: [place] [address] : 59 AGE: 62 SEX: M ATTEND: Salinas Alba MD ADM AUTHOR: Sofia Cheng NP * ALL edits or amendments must be made on the electronic/computer document * History of Present Illness HPI Chief complaint: Abdominal distention, hydronephrosis HPI: 62-year-old male with last medical history of, BPH, transferred from [place] for urology evaluation and treatment secondary to [...] of motion, normal sensory, normal motor function Neuro/GAS UTILITY WORKER: alert, oriented X 3 Skin: dry, [...] (Auto) (14.0 - 32.0 %) 3.8 L [place] % (Auto) (4.8 - 9.0 %) 13.6 H Eos % (Auto) (0.3 - 3.7 %) 0.4 Baso % (Auto) (0.0 - 2.0 %) 0.2 Neut # (Auto) (2.0 - 7.6 x10 3/uL) 8.96 H Lymph # (Auto) (1.0 - 3.8 x10 3/uL) 0.42 L [place] # (Auto) (0.1 - 0.8 x10 3/uL) [...] last medical history of, BPH, transferred from [place] for urology evaluation and treatment secondary to [...] clinical course at 0232 at 1204 RPT #:[id number] END OF REPORT [facility] 2022-10-16 03:54:00 [facility] ([facility]) EMERGENCY PROVIDER REPORT REPORT#:[id number] REPORT STATUS: Signed DATE:10/16/22 TIME: 0354 PATIENT: MATHEW CASTILLO UNIT #: [id number] ROOM/BED: [place] AGE: 62 SEX: M PCP PHYS: No [...] B/P 146/80 10/16 0330 B/P Mean 107 / 0330 Pulse [...] Diagnostics Lab Results Interpretation Results Laboratory Tests 10/16/223: [Embedded Image Not Available] Laboratory Tests: 10/16 [...] (Auto) (14.0 - 32.0 %) 3.8 L [place] % (Auto) (4.8 - 9.0 %) 13.6 H Eos % (Auto) (0.3 - 3.7 %) 0.4 Baso % (Auto) (0.0 - 2.0 %) 0.2 Neut # (Auto) (2.0 - 7.6 x10 3/uL) 8.96 H Lymph # (Auto) (1.0 - 3.8 x10 3/uL) 0.42 L [place] # (Auto) (0.1 - 0.8 x10 3/uL) [...] Consultation Consultation Referral/Consult Name Dave Jones MD Bid Clerk Called Urology Bid Clerk Discussed with regulatory consultant Requested Call Time 0345 Requested Call Date 10/16/22 Call Returned Call returned Call Returned Time 0355 Call Returned Date 10/16/22 Free Text Consult Notes Recommends abx, requesting NPO status admit to medicine. Patient Discharge Departure Vital Signs/Condition Vital Signs First Documented: Result Date Time Pulse Ox 96 10/16 0308 B/P 146/78 / 0308 B/P Mean 100 10/16 0308 O2 [...] this chart for administrative purposes only. at 4507 RPT #:[id number] END OF REPORT [facility]
--- NOTE | 2024-06-19 13:55 | EDPHYS ---
Physician Documentation [facility] Name: Mathew Porter Age: 63 yrs Sex: Male : 1960 Arrival Date: 06/19/2024 Time: 13:20 Bed 18 Private MD: ED Physician Silvestre Sheppard HPI: 06/19 13:27 This 63 yrs old Male presents to ER via Unassigned with complaints of Problem With kb Urinary Catheter. 13:27 Pt is a 63 year old male who presents to have urinary catheter changed. States he is kb due to have it changed on Friday. . Historical: - Allergies: 13:43 NKA; hb - PMHx: 13:43 Schizophrenia; hb - PSHx: 13:43 Urolift; hb - Immunization history:: Adult Immunizations up to date. - Infectious Disease History:: Denies. - Social history:: Smoking status: Patient/guardian denies using tobacco. ROS: 13:27 Constitutional: As per HPI kb Exam: 13:27 Constitutional: This is a well developed, well nourished patient who is awake, alert, kb and in no acute distress. Head/Face: Normocephalic, atraumatic. ENT: Moist Mucous membranes Cardiovascular: Regular rate Respiratory: Respirations even and unlabored. No increased work of breathing. Talking in full sentences Skin: Warm, dry with normal turgor. Normal color. MS/ Extremity: Pulses equal, no cyanosis. Neurovascular intact. Full, normal range of motion. Neuro: Awake and alert, GCS 15, oriented to person, place, time, and situation. Vital Signs: 13:41 BP 124 / 74; Pulse 68; Resp 16; Temp 97.9(O); Pulse Ox 100% on R/A; Pain 0/10; hb 13:41 Pain Scale: Adult hb MDM: 13:26 Medical Screening Exam initiated kb 13:29 Differential diagnosis: johns catheter malfunction, chronic johns. Data reviewed: vital kb signs, nurses notes. Counseling: I had a detailed discussion with the patient and/or guardian regarding the historical points, exam findings, and any diagnostic results supporting the discharge/admit diagnosis, the need for outpatient follow up, a urologist, to return to the emergency department if symptoms worsen or persist or if there are any questions or concerns that arise at home. 06/19 13:29 Order name: Johns: replace johns catheter; Complete Time: 14:39 kb Administered Medications: No medications were administered Disposition: 16:16 Co-signature as Attending Physician, Silvestre Sheppard MD I reviewed the patient's care rt provided by the Advanced Practice Provider and agree with the diagnosis and treatment plan. Disposition Summary: 06/19/24 13:54 Discharge Ordered Notes: Location: Home kb Condition: Stable kb Diagnosis - Leakage of urinary (indwelling) catheter kb Followup: kb - With: Emergency Department - When: As needed - Reason: Worsening of condition Followup: kb - With: Private Physician - When: 2 - 3 days - Reason: Recheck today's complaints, Continuance of care, Re-evaluation by your physician Discharge Instructions: - Discharge Summary Sheet kb - Indwelling Urinary Catheter Care, Adult, [id number] kb Forms: - Medication Reconciliation Form kb - Antibiotic Education kb - Prescription Opioid Use kb - Patient Portal Instructions kb - Leadership Thank You Letter kb Signatures: Brit Zapata FNP-C FNP-Ckb Baxter, Heather, RN RN Silvestre Osorio MD MD rt
--- NOTE | 2024-06-19 13:55 | ER ---
Nurse's Notes [facility] Name: Mathew Porter Age: 63 yrs Sex: Male : 1960 Arrival Date: 06/19/2024 Time: 13:20 Bed 18 Private MD: Diagnosis: Leakage of urinary (indwelling) catheter Presentation: 06/19 13:41 Chief complaint: Needs catheter replaced again. Coronavirus screen: At this time, the hb client does not indicate any symptoms associated with coronavirus-19. Ebola Screen: No symptoms or risks identified at this time. Initial Sepsis Screen: Does the patient meet any 2 criteria? No. Patient's initial sepsis screen is negative. Does the patient have a suspected source of infection? No. Patient's initial sepsis screen is negative. Risk Assessment: Do you want to hurt yourself or someone else? Patient reports no desire to harm self or others. Onset of symptoms was June 19, 2024. 13:41 Method Of Arrival: Ambulatory 13:41 Acuity: JAMILA 4 hb Triage Assessment: 13:45 General: Appears in no apparent distress. comfortable, Behavior is cooperative, bp appropriate for age, agitated. Pain: Denies pain. : Mercer in place. Historical: - Allergies: 13:43 NKA; hb - PMHx: 13:43 Schizophrenia; hb - PSHx: 13:43 Urolift; hb - Immunization history:: Adult Immunizations up to date. - Infectious Disease History:: Denies. - Social history:: Smoking status: Patient/guardian denies using tobacco. Screenin:40 [facility] ED Fall Risk Assessment (Adult) History of falling in the last 3 months, bp including since admission No falls in past 3 months (0 pts) Confusion or Disorientation No (0 pts) Intoxicated or Sedated No (0 pts) Impaired Gait No (0 pts) Mobility Assist Device Used No (0 pt) Altered Elimination No (0 pt) Score/Fall Risk Level 0 - 2 = Low Risk Oriented to surroundings. Abuse screen: Denies threats or abuse. Denies injuries from another. Nutritional screening: No deficits noted. Tuberculosis screening: No symptoms or risk factors identified. Vital Signs: 13:41 BP 124 / 74; Pulse 68; Resp 16; Temp 97.9(O); Pulse Ox 100% on R/A; Pain 0/10; hb 13:41 Pain Scale: Adult hb ED Course: 13:24 Patient arrived in ED. al6 13:26 Brit Zapata FNP-C is [facility]. kb 13:26 Silvestre Sheppard MD is Attending Physician. kb 13:42 Triage completed. hb 13:42 John Roberts, RN is Primary Nurse. bp 13:43 Arm band placed on. hb 14:40 Patient has correct armband on for positive identification. bp 14:40 No provider procedures requiring assistance completed. Mercer cath inserted, using bp sterile technique, 16 Fr., by ar, balloon inflated, to gravity drainage. Patient did not have IV access during this emergency room visit. Administered Medications: No medications were administered Outcome: 13:54 Discharge ordered by MD. kb 14:40 Discharged to home ambulatory, bp 14:40 Condition: stable 14:40 Discharge instructions given to patient, Instructed on discharge instructions, follow up and referral plans. Demonstrated understanding of instructions, follow-up care, 14:49 Patient left the ED. bp Signatures: Brit Zapata FNP-C FNP-Ckb Baxter, Heather, RN RN John Roberts, RN RN Audrey Guadalupe al6
[2024-06-19 15:04] VITALS: BP 124/74; TEMP 97.9; O2SAT 100
== END 2024-06-19 14:49 | disposition home or self-care (01) ==
LOC: ER 13:20
DX: T83.038A Leakage of other urinary catheter, initial encounter (principal)
CPT/HCPCS: 51702; 99284

== ENCOUNTER 2024-08-08 17:19 | Emergency (ER) | payer OTHER ==
--- OUTSIDE RECORDS SUMMARY | 2024-08-08 17:25 | XMS REPORT | Continuity of Care Document ---
Author Name Unknown Address [address] [facility] [place] [place] [address] [facility] Address [address] [facility] [place] [place] [address] Care Team Providers Care Ceramic Coater Name Role Phone Salinas Alba I Attending [...] s DA Active U 10-16 00:00: 00 [facility] Encounters Start Date/Time End Date/Time Encounter Type Admission Type Attending Clinicians Care Facility Care Department Encounter ID Source 2023-01-21 06:38:00 2023-01-22 20:00:00 Inpatient EM [facility] [id number] 65 [facility] 2023-01-06 15:12:00 2023-01-11 21:08:00 Inpatient EM [facility] Al[facility] [id number] [facility] 2022-10-16 05:03:00 2022-10-26 19:41:00 Inpatient EM [facility] Al[facility] [id number] [facility] Results Test Description Test Time Test Comments Results Resul t Comments Source - CT ABD PELVIS W/CONT 2023-01-05 8 [facility] 1960 Sex: M Name: MATHEW CASTILLO [facility] : 1960 Age/S: 62 / M [address] [place] [address] Blvd Unit #: [id number] Loc: [place] [address] Phys: Sofia Cheng MOVIE STAR Acct: [id number] Dis Date: Status: ADM IN PHONE #: [phone] Exam Date: 01/22/2023 1231 FAX #: [phone] Reason: ABD PAIN EXAMS: CPT CODE: [id number] CT ABD PELVIS W/CONT 71694 EXAM: CT abdomen and pelvis with contrast [...] 1 Signed Report (CONTINUED) Name: MATHEW CASTILLO [facility] : 1960 Age/S: 62 / M [address] [place] [address] Blvd Unit #: [id number] Loc: [place] [address] Phys: Sofia Cheng MOVIE STAR Acct: [id number] Dis Date: Status: ADM IN PHONE #: [phone] Exam Date: 01/22/2023 1231 FAX #: [phone] Reason: ABD PAIN EXAMS: CPT CODE: [id number] CT ABD PELVIS W/CONT 92989 (Continued) abdominal aortic aneurysm. Pelvic organs/bladder: Moderate [...] M.D. CC: Lakhwinder Guillermo MD; Sofia Cheng MOVIE STAR; Salinas Dukes MD Technologist:Rick Moran Jr, RT(R)(CT) CTDI: DLP: Trnscb Date/Time: 01/22/2023 (1300) t.SDR.BC0 Orig Print D/T: S: 01/22/2023 (8786) PAGE 2 Signed Report [id number] 07:46:00* Test Item Value Reference Range Interpretation Comme nts PHOSPHOROUS (test code = PHOS) 2.4 MG/DL 2.5-4.9 L [id number] 07:46:00* Test Item Value Reference Range Interpretation Comme nts MAGNESIUM (test code = MAG) 1.69 mg/dL 1.6-2.6 N NOTE: NEW NORMAL RANGE CBC W/AUTO [id number] 07:05:00* Test Item Value Reference Range Interpretation [...] 0.00 x10 3/uL 0.0-0.1 N BASIC METABOLIC [id number] 06:08:00* Test Item Value Reference Range Interpretation [...] CA) 8.2 mg/dL 8.0-10.5 N CBC W/AUTO [id number] 05:57:00* Test Item Value Reference Range Interpretation [...] c ode = MDIFF) NO CBC W/AUTO [id number] 08:15:00* Test Item Value Reference Range Interpretation [...] 0.00 x10 3/uL 0.0-0.1 N BASIC METABOLIC [id number] 07:28:00* Test Item Value Reference Range Interpretation [...] CA) 8.6 mg/dL 8.0-10.5 N BASIC METABOLIC [id number] 07:46:00* Test Item Value Reference Range Interpretation [...] CA) 8.7 mg/dL 8.0-10.5 N CBC W/AUTO [id number] 07:34:00* Test Item Value Reference Range Interpretation [...] 0.00 x10 3/uL 0.0-0.1 N CBC W/AUTO [id number] 08:43:00* Test Item Value Reference Range Interpretation [...] c ode = MDIFF) NO BASIC METABOLIC [id number] 07:14:00* Test Item Value Reference Range Interpretation [...] CA) 7.8 mg/dL 8.0-10.5 L CBC W/AUTO [id number] 08:58:00* Test Item Value Reference Range Interpretation [...] c ode = MDIFF) NO BASIC METABOLIC [id number] 08:27:00* Test Item Value Reference Range Interpretation [...] HGBA1C%) 5.1 %A1C 4.8-6.0 N CBC W/AUTO [id number] 08:05:00* Test Item Value Reference Range Interpretation [...] (test code = MDIFF) NO BASIC METABOLIC [id number] 07:46:00* Test Item Value Reference Range Interpretation [...] = LDL) 104.0 mg/dL 0-100 H <100 EMRHYIU15 0-129 NEAR OPTIMAL/ABOVE [id number] [id number] HIGH>JY=958 VERY HIGH*Guidelines provided by the National Cholesterol EducationProgram Adult Treatment Panel III [id number] 07:46:00* Test Item Value Reference Range Interpretation Comme nts PHOSPHOROUS (test code = PHOS) 3.4 MG/DL 2.5-4.9 N [id number] 07:46:00* Test Item Value Reference Range Interpretation Comme nts MAGNESIUM (test code = MAG) 1.69 mg/dL 1.6-2.6 N NOTE: NEW NORMAL RANGE TSH REFLEX TO [id number] 07:46:00* Test Item Value Reference Range Interpretation Comme nts TSH REFLEX TO FT4 (test code = TSHREFLEX) 2.37 IU/mL 0.42-5.47 N LACTIC [id number] 05:48:00* Test Item Value Reference Range Interpretation Comme nts LACTIC ACID (test code = LACT) 1.1 mmol/L 0.4-1.9 N LACTIC ACID [id number] 02:38:00* Test Item Value Reference Range Interpretation Comme nts LACTIC ACID REPEAT (test cod e = LACTR) 0.9 mmol/l 0.4-1.9 N CALLED SEVERINO @01:18 TO REMIND WE NEEDED REPEATLACTIC [id number] 22:36:00* Test Item Value Reference Range Interpretation Comme nts LACTIC ACID (test code = LACT) 2.9 mmol/L 0.4-1.9 H UA RFLX MICR CULT IF [id number] 22:35:00* Test Item Value Reference Range Interpretation [...] Less than 14 days- CT ABD PELVIS [id number] 22:24:00 [facility] : 1960 Sex: M Name: MATHEW CASTILLO [facility] [place] [facility] : 1960 Age/S: 62 / M [address] [place] [address] Blvd Unit #: [id number] Loc: [place] [address] Phys: Vee Horton Acct: [id number] Dis Date: Status: [facility] ER PHONE #: [phone] Exam Date: 01/04/2023 0940 FAX #: [phone] Reason: GROSS HEMATURIA EXAMS: CPT CODE: [id number] CT ABD PELVIS W/CONT 33786 H 20 TIME OF STUDY: 01/04/2023 7:55 [...] (CONTINUED) Name: MATHEW CASTILLO [facility] :1960 Age/S: 62 / M [address] [place] [address] Bl Unit #: [id number] Loc: [place] [address] Phys: Vee Horton Acct: [id number] Dis Date: Status: REG ER PHONE #: [phone] Exam Date: 01/04/2023939 FAX #: [phone] Reason: GROSS HEMATURIA EXAMS: CPT CODE: [id number] CT ABD PELVIS W/CONT 02805 (Continued) at 2224 Reported and signed by: Zia Magaña M.D. CC: Lakhwinder Guillermo MD; Vee Horton; Javier Carroll Technologist:Latoya Moeller, RT(R); Lesvia Humphries CTDI: DLP: Trnscb Date/Time: 01/04/2023 (2223) t.SDR.SI1 Orig Print D/T: S: 01/04/2023 (2226) PAGE 2 Signed ReportCOMPREHENSIVE METABOLIC [id number] 21:07:00* Test Item Value Reference Range Interpretation [...] ALKP) 60 IUnit/L 20-125 N CBC W/AUTO [id number] 20:38:00* Test Item Value Reference Range Interpretation [...] (test code = MDIFF) NO BASIC METABOLIC [id number] 08:30:00* Test Item Value Reference Range Interpretation [...] reported result: 4.9 mg/dLEdited by: KRISTEN on 10/31/22:72538510/31/22 0829: CA previously reported as: 4.9 *L mg/dL Critical [place] [address]/16/22 Nurse read back result and tech confirmed it's correct? Y GLUCOSE [id number] 17:27:00* Test Item Value Reference Range Interpretation Comme nts GLUCOSE BEDSIDE (test code = GLUBED) 109 MG/DL 70-110 N Performed by teto tse at [facility] GLUCOSE [id number] 12:34:00* Test Item Value Reference Range Interpretation Comme nts GLUCOSE BEDSIDE (test code = GLUBED) 95 MG/DL 70-110 N Performed by cer tified pipe machine operator at [facility] GLUCOSE [id number] 08:49:00* Test Item Value Reference Range Interpretation Comme nts GLUCOSE BEDSIDE (test code = GLUBED) 117 MG/DL 70-110 H Performed by cer tified pipe machine operator at [facility] BASIC METABOLIC [id number] 07:57:00* Test Item Value Reference Range Interpretation [...] = CA) 8.1 mg/dL 8.0-10.5 N GLUCOSE [id number] 17:07:00* Test Item Value Reference Range Interpretation Comme nts GLUCOSE BEDSIDE (test code = GLUBED) 127 MG/DL 70-110 H Performed by cer tified pipe machine operator at [facility] GLUCOSE [id number] 12:26:00* Test Item Value Reference Range Interpretation Comme nts GLUCOSE BEDSIDE (test code = GLUBED) 123 MG/DL 70-110 H Performed by cer tified pipe machine operator at [facility] GLUCOSE [id number] 07:59:00* Test Item Value Reference Range Interpretation Comme nts GLUCOSE BEDSIDE (test code = GLUBED) 92 MG/DL 70-110 N Performed by cer violeta pipe machine operator at [facility] BASIC METABOLIC [id number] 07:38:00* Test Item Value Reference Range Interpretation [...] CA) 7.8 mg/dL 8.0-10.5 L CBC W/AUTO [id number] 07:27:00* Test Item Value Reference Range Interpretation [...] REQUIRED (test code = MDIFF) NO GLUCOSE [id number] 21:25:00* Test Item Value Reference Range Interpretation Comme nts GLUCOSE BEDSIDE (test code = GLUBED) 154 MG/DL 70-110 H Performed by cer tified pipe machine operator at [facility] GLUCOSE [id number] 17:43:00* Test Item Value Reference Range Interpretation Comme nts GLUCOSE BEDSIDE (test code = GLUBED) 73 MG/DL 70-110 N Performed by cer tified pipe machine operator at [facility] GLUCOSE [id number] 10:08:00* Test Item Value Reference Range Interpretation Comme nts GLUCOSE BEDSIDE (test code = GLUBED) 87 MG/DL 70-110 N Performed by cer tified pipe machine operator at [facility] GLUCOSE [id number] 20:12:00* Test Item Value Reference Range Interpretation Comme nts GLUCOSE BEDSIDE (test code = GLUBED) 139 MG/DL 70-110 H Performed by cer tified pipe machine operator at [facility] GLUCOSE [id number] 17:32:00* Test Item Value Reference Range Interpretation Comme nts GLUCOSE BEDSIDE (test code = GLUBED) 79 MG/DL 70-110 N Performed by cer tified pipe machine operator at [facility] GLUCOSE [id number] 12:14:00* Test Item Value Reference Range Interpretation Comme nts GLUCOSE BEDSIDE (test code = GLUBED) 98 MG/DL 70-110 N Performed by cer tified pipe machine operator at [facility] GLUCOSE [id number] 08:36:00* Test Item Value Reference Range Interpretation Comme nts GLUCOSE BEDSIDE (test code = GLUBED) 92 MG/DL 70-110 N Performed by cer tified pipe machine operator at [facility] BASIC METABOLIC [id number] 07:50:00* Test Item Value Reference Range Interpretation [...] code = CA) 7.6 mg/dL 8.0-10.5 L [id number] 07:50:00* Test Item Value Reference Range Interpretation Comme nts MAGNESIUM (test code = MAG) 1.53 mg/dL 1.80-2.40 L - CTA CHEST FOR [id number] 00:00:00 [facility] 1960 Sex: M Name: MATHEW CASTILLO [facility] : 1960 Age/S: 62 / M [address] [place] [address] Blvd Unit #: [id number] Loc: [place] [address] Phys: Sofia Cheng MOVIE STAR Acct: [id number] Dis Date:Status: ADM IN PHONE #: [phone] Exam Date: 10/23/2022 1724 FAX #: [phone] Reason: ELEVATED D DIMER EXAMS: CPT CODE: [id number] [place] [address] PROCEDURE INFORMATION: Exam: CTA Chest With Contrast [...] 1 Signed Report (CONTINUED) Name: MATHEW CASTILLO [facility] : 1960 Age/S: 62 / M [address] [place] [address] Unit #: [id number] Loc: [place] [address] Phys: Sofia Cheng MOVIE STAR Acct: [id number] Dis Date: Status: ADM IN PHONE #: [phone] Exam Date: 10/23/2022 1722 FAX #: [phone] Reason: ELEVATED D DIMER EXAMS: CPT CODE: [id number] [place] [address] (Continued) flexure compatible with colitis incompletely evaluated. [...] by: Hayden Rg M.D. CC: Sofia Cheng MOVIE STAR; Salinas Dukes MD Technologist:Latoya Pérez, RT(R)(CT); . CTDI: DLP: Trnscb Date/Time: 10/23/2022 (2012) tJosé MiguelSDR.JT18 Orig Print D/T: S: 10/23/2022 (2012) PAGE 2 Signed ReportGLUCOSE [id number] 20:23:00* Test Item Value Reference Range Interpretation Comme nts GLUCOSE BEDSIDE (test code = GLUBED) 123 MG/DL 70-110 H Performed by cer tified pipe machine operator at [facility] GLUCOSE [id number] 17:34:00* Test Item Value Reference Range Interpretation Comme nts GLUCOSE BEDSIDE (test code = GLUBED) 132 MG/DL 70-110 H Performed by [facility] tified pipe machine operator at [facility] GLUCOSE [id number] 11:57:00* Test Item Value Reference Range Interpretation Comme nts GLUCOSE BEDSIDE (test code = GLUBED) 118 MG/DL 70-110 H Performed by cer tified pipe machine operator at [facility] GLUCOSE [id number] 08:22:00* Test Item Value Reference Range Interpretation Comme nts GLUCOSE BEDSIDE (test code = GLUBED) 100 MG/DL 70-110 N Performed by [facility] tified pipe machine operator at [facility] BASIC METABOLIC [id number] 08:05:00* Test Item Value Reference Range Interpretation [...] code = CA) 7.8 mg/dL 8.0-10.5 L [id number] 08:05:00* Test Item Value Reference Range Interpretation Comme nts MAGNESIUM (test code = MAG) 1.72 mg/dL 1.80-2.40 L GLUCOSE [id number] 21:10:00* Test Item Value Reference Range Interpretation Comme nts GLUCOSE BEDSIDE (test code = GLUBED) 148 MG/DL 70-110 H Performed by cer tified pipe machine operator at [facility] GLUCOSE [id number] 17:29:00* Test Item Value Reference Range Interpretation Comme nts GLUCOSE BEDSIDE (test code = GLUBED) 102 MG/DL 70-110 N Performed by cer tified pipe machine operator at [facility] GLUCOSE [id number] 11:54:00* Test Item Value Reference Range Interpretation Comme nts GLUCOSE BEDSIDE (test code = GLUBED) 104 MG/DL 70-110 N Performed by [facility] Pumpic pipe machine operator at [facility] CBC W/MANUAL [id number] 10:35:00* Test Item Value Reference Range Interpretation [...] (test code = PLTMORPH) LARGE PLATELETS GLUCOSE [id number] 07:57:00* Test Item Value Reference Range Interpretation Comme [facility] GLUCOSE BEDSIDE (test code = GLUBED) 95 MG/DL 70-110 N Performed by cer tified pipe machine operator at [facility] C REACTIVE [id number] 07:48:00* Test Item Value Reference Range Interpretation Comme [facility] C REACTIVE PROTEIN (test cod e = CRP) 36.0 mg/L <10.0 H BASIC METABOLIC [id number] 07:40:00* Test Item Value Reference Range Interpretation Comme [facility] SODIUM (test code = NA) 140 [...] code = CA) 7.3 mg/dL 8.0-10.5 L [id number] 07:40:00* Test Item Value Reference Range Interpretation Comme nts MAGNESIUM (test code = MAG) 1.50 mg/dL 1.80-2.40 L [id number] 07:04:00* Test Item Value Reference Range Interpretation Comme nts D-DIMER (test code = DDIMER) 5949 ng/mlFEU See_Comment HH Critical result called to Brigido RUIZLAB.JJ1 at 0701 10/21/22Nurse read back result and tech confirmed it's correct? YESTHROMBOSIS AND/OR PULMONARY EMBOLISM AND THE CLINICAL CUT- OFF VALUE FOR EXCLUSION (500 ng/mL FEU) OF THESE CONDITIONSIS VALIDATED BY THE SENIOR NET ENGINEER OF THE METHOD. A NEGATIVE D-DIMER [...] this result as normal/abnormal. - DUP VEIN [id number] 00:00:00 [facility]: MATHEW CASTILLO : 1960 Sex: M Name: MATHEW CASTILLO [facility] [place] : 1960 Age/S: 62 / M [address] [place] [address] Blvd Unit #: [id number] Loc: [place] [address] Phys: Skip Jaffe MD Acct: [id number] Dis Date: Status: ADM IN PHONE #: [phone] Exam Date: 10/21/2022820 FAX #: [phone] Reason: R/o DVT EXAMS: CPT CODE: [id number] DUP VEIN ASAEL 77219 PROCEDURE INFORMATION: Exam: US Duplex Lower ExtremityVeins, [...] MD; Salinas Dukes MD Technologist: [facility] Date/Time: 10/21/2022 (911) t.SDR.AB61 Orig Print D/T: S:10/21/2022 (911) Probe: PAGE 1 Signed Report GLUCOSE [id number] 20:40:00* Test Item Value Reference Range Interpretation Comme [facility] GLUCOSE BEDSIDE (test code = GLUBED) 148 MG/DL 70-110 H Performed by cer tified pipe machine operator at [facility] GLUCOSE [id number] 16:46:00* Test Item Value Reference Range Interpretation Comme [facility] GLUCOSE BEDSIDE (test code = GLUBED) 122 MG/DL 70-110 H Performed by cer tified pipe machine operator at [facility] TROP-I HIGH [id number] 15:04:00* Test Item Value Reference Range Interpretation Comme [facility] TROP-I HIGH SENSITIVITY (test code = [...] URL. These results were obtained using Siemens Sp[employer] IM TnIHreagent. Results from different methodologies should not becompared to one another as quantitative results and URLs mayvary by method. BASIC METABOLIC [id number] 15:04:00* Test Item Value Reference Range Interpretation [...] CA) 7.1 mg/dL 8.0-10.5 L TROP-I HIGH [id number] 10:07:00* Test Item Value Reference Range Interpretation [...] URL. These results were obtained using [employer]ens [employer]itting[employer] IM TnIHreagent. Results from different methodologies should not becompared to one another as quantitative results and URLs mayvary by method. CBC W/AUTO [id number] 09:54:00* Test Item Value Reference Range Interpretation [...] (test code = MDIFF) NO TROP-I HIGH [id number] 09:24:00* Test Item Value Reference Range Interpretation Comme [facility] TROP-I HIGH SENSITIVITY (test code = [...] the URL. These results were obtained using [employer] IM TnIHreagent. Results from different methodologies should not becompared to one another as quantitative results and URLs mayvary by method. GLUCOSE [id number] 08:49:00* Test Item Value Reference Range Interpretation Comme nts GLUCOSE BEDSIDE (test code = GLUBED) 102 MG/DL 70-110 N Performed by teto mcdaniel pipe machine operator at [facility] COMPREHENSIVE METABOLIC [id number] 02:08:00* Test Item Value Reference Range Interpretation [...] code = ALKP) 47 IUnit/L 20-125 N [id number] 02:08:00* Test Item Value Reference Range Interpretation Comme nts LIPASE (test code = LIP) 57 U/L 13-57 N PROTHROMBIN [id number] 02:05:00* Test Item Value Reference Range Interpretation [...] Infarction (to prevent recurrent infarct). THROMBOPLASTIN TIME [id number] 02:05:00* Test Item Value Reference Range Interpretation Comme [facility] THROMBOPLASTIN TIME PARTIAL (test code = PTT) 26.1 Seconds 25.0-39.5 N Therapeutic Rang e: 50.4 - 88.3 Seconds Effective 07/21/2018 LACTIC [id number] 01:59:00* Test Item Value Reference Range Interpretation Comme [facility] LACTIC ACID (test code = LACT) 1.1 mmol/L 0.4-1.9 N CBC W/AUTO [id number] 01:51:00* Test Item Value Reference Range Interpretation [...] = MDIFF) NO - XR CHEST 1 [id number] 00:00:00 [facility] : 1960 Sex: M FAX: Sofia Cheng NP [phone] [place]: St: ADM FAX: Salinas Callahan I [phone] Name: MATHEW CASTILLO [facility] : 1960 Age/S: 62/M [address] [place] [address] Unit #: [id number] Loc: G.[address] [place] [address] Phys: Sofia Cheng NP Acct: [id number] Dis Date: Status: ADM IN PHONE #: [phone] Exam Date: 10/20/2022106 FAX #: [phone] Reason: Sepsis EXAMS: CPT CODE: [id number] XR CHEST 1 V 74851 PROCEDURE INFORMATION: Exam: XR Chest Exam date [...] By: [id number] Orig Print D/T: S: 10/20/2022 (0) PAGE 1 Signed ReportGLUCOSE [id number] 21:00:00* Test Item Value Reference Range Interpretation Comme nts GLUCOSE BEDSIDE (test code = GLUBED) 135 MG/DL 70-110 H Performed by cer tified pipe machine operator at [facility] URINALYSIS [id number] 20:03:00* Test Item Value Reference Range Interpretation [...] MUCU) 1+ /LPF NONE SEEN UR SODIUM [id number] 20:03:00* Test Item Value Reference Range Interpretation Comme nts UR SODIUM RANDOM (test code = ALPHONSE) 102 MEQ/L The Reference Ra nge and Method Performance specificationshave not been established for this fluid. The test resultshould be correlated into the clinical context forinterpretation. UR PROTEIN [id number] 20:03:00* Test Item Value Reference Range Interpretation Comme nts UR PROTEIN RANDOM (test code = PROTU) 79 mg/dL UR CREATININE [id number] 20:03:00* Test Item Value Reference Range Interpretation Comme nts UR CREATININE RANDOM (test code = CREATU) 111.9 mg/dL The Reference Ra nge and Method Performance specificationshave not been established for this fluid. The test resultshould be correlated into the clinical context forinterpretation. UR OSMOLALITY [id number] 20:03:00* Test Item Value Reference Range Interpretation Comme nts UR OSMOLALITY RANDOM (test c ode = OSMOU) 575 MOS/KG 300-1000 UR OSMOLALITY [id number] 20:02:00* Test Item Value Reference Range Interpretation Comme nts UR OSMOLALITY RANDOM (test c ode = OSMOU) 575 MOS/KG 300-1000 N GLUCOSE [id number] 17:18:00* Test Item Value Reference Range Interpretation Comme nts GLUCOSE BEDSIDE (test code = GLUBED) 122 MG/DL 70-110 H Performed by cer tified pipe machine operator at [facility] GLUCOSE [id number] 12:48:00* Test Item Value Reference Range Interpretation Comme nts GLUCOSE BEDSIDE (test code = GLUBED) 109 MG/DL 70-110 N Performed by cer tified pipe machine operator at [facility] GLUCOSE [id number] 07:53:00* Test Item Value Reference Range Interpretation Comme nts GLUCOSE BEDSIDE (test code = GLUBED) 96 MG/DL 70-110 N Performed by cer tified pipe machine operator at [facility] BASIC METABOLIC [id number] 07:51:00* Test Item Value Reference Range Interpretation [...] code = CA) 7.5 mg/dL 8.0-10.5 L [id number] 07:51:00* Test Item Value Reference Range Interpretation Comme nts MAGNESIUM (test code = MAG) 1.65 mg/dL 1.80-2.40 L CBC W/AUTO [id number] 07:07:00* Test Item Value Reference Range Interpretation [...] (test c ode = MDIFF) NO GLUCOSE [id number] 20:44:00* Test Item Value Reference Range Interpretation Comme nts GLUCOSE BEDSIDE (test code = GLUBED) 116 MG/DL 70-110 H Performed by cer tified pipe machine operator at [facility] GLUCOSE [id number] 18:07:00* Test Item Value Reference Range Interpretation Comme nts GLUCOSE BEDSIDE (test code = GLUBED) 98 MG/DL 70-110 N Performed by cer tified pipe machine operator at [facility] GLUCOSE [id number] 12:23:00* Test Item Value Reference Range Interpretation Comme nts GLUCOSE BEDSIDE (test code = GLUBED) 135 MG/DL 70-110 H Performed by [employer] pipe machine operator at [facility] GLUCOSE [id number] 11:22:00* Test Item Value Reference Range Interpretation Comme nts GLUCOSE BEDSIDE (test code = GLUBED) 104 MG/DL 70-110 N Performed by cer tified pipe machine operator at [facility] BASIC METABOLIC [id number] 08:12:00* Test Item Value Reference Range Interpretation [...] code = CA) 7.4 mg/dL 8.0-10.5 L [id number] 08:12:00* Test Item Value Reference Range Interpretation Comme nts MAGNESIUM (test code = MAG) 1.48 mg/dL 1.80-2.40 L CBC W/AUTO [id number] 08:09:00* Test Item Value Reference Range Interpretation [...] (test c ode = MDIFF) NO GLUCOSE [id number] 05:56:00* Test Item Value Reference Range Interpretation Comme nts GLUCOSE BEDSIDE (test code = GLUBED) 104 MG/DL 70-110 N Performed by cer tified pipe machine operator at [facility] GLUCOSE [id number] 03:31:00* Test Item Value Reference Range Interpretation Comme nts GLUCOSE BEDSIDE (test code = GLUBED) 129 MG/DL 70-110 H Performed by cer tified pipe machine operator at [facility] [facility] GLUCOSE [id number] 12:50:00* Test Item Value Reference Range Interpretation Comme nts GLUCOSE BEDSIDE (test code = GLUBED) 177 MG/DL 70-110 H Performed by cer tified pipe machine operator at [facility] CBC W/AUTO [id number] 10:14:00* Test Item Value Reference Range Interpretation [...] 0.00 x10 3/uL 0.0-0.1 N VITAMIN D [id number] 08:19:00* Test Item Value Reference Range Interpretation Comme nts VITAMIN D 25-HYDROXY (test c ode = VITD25) 25.5 ng/mL 30-100 L Indication for Test: PTH DisorderCOMPREHENSIVE METABOLIC [id number] 08:14:00* Test Item Value Reference Range Interpretation [...] code = ALKP) 62 IUnit/L 20-125 N [id number] 08:14:00* Test Item Value Reference Range Interpretation Comme nts PHOSPHOROUS (test code = PHOS) 2.6 MG/DL 2.5-4.9 N [id number] 08:14:00* Test Item Value Reference Range Interpretation Comme nts MAGNESIUM (test code = MAG) 1.50 mg/dL 1.80-2.40 L GLUCOSE [id number] 07:40:00* Test Item Value Reference Range Interpretation Comme nts GLUCOSE BEDSIDE (test code = GLUBED) 105 MG/DL 70-110 N Performed by cer tified pipe machine operator at [facility] GLUCOSE [id number] 17:26:00* Test Item Value Reference Range Interpretation Comme nts GLUCOSE BEDSIDE (test code = GLUBED) 113 MG/DL 70-110 H Performed by cer tified pipe machine operator at [facility] PROTHROMBIN [id number] 15:23:00* Test Item Value Reference Range Interpretation [...] (to prevent recurrent infarct). TSH REFLEX TO [id number] 14:32:00* Test Item Value Reference Range Interpretation Comme [facility] TSH REFLEX TO FT4 (test code = TSHREFLEX) 1.59 IU/mL 0.42-5.47 N [id number]%2022-10-16 14:19:00* Test Item Value Reference Range Interpretation Comme [facility] HGBA1C% (test code = HGBA1C%) 5.5 %A1C 4.8-6.0 N [id number] 14:13:00* Test Item Value Reference Range Interpretation Comme [facility] MAGNESIUM (test code = MAG) 1.91 mg/dL 1.80-2.40 N COMPREHENSIVE METABOLIC [id number] 14:13:00* Test Item Value Reference Range Interpretation [...] = ALKP) 62 IUnit/L 20-125 N GLUCOSE [id number] 12:54:00* Test Item Value Reference Range Interpretation Comme nts GLUCOSE BEDSIDE (test code = GLUBED) 102 MG/DL 70-110 N Performed by cer tiftreadalong pipe machine operator at [facility] GLUCOSE [id number] 10:14:00* Test Item Value Reference Range Interpretation Comme nts GLUCOSE BEDSIDE (test code = GLUBED) 110 MG/DL 70-110 N Performed by MamboCar tified pipe machine operator at [facility] CBC W/AUTO [id number] 05:58:00* Test Item Value Reference Range Interpretation [...] Notes Date/Time Note Provider Source 2023-02-14 02:12:00 [facility] ([facility]) Discharge Summary REPORT#:[id number] REPORT STATUS: Signed REPORT INITIALIZATION DATE:02/14/23 TIME: 211 PATIENT: MATHEW CASTILLO UNIT #: [id number] ROOM/BED: [place] [address] : 59 AGE: 62 SEX: M ATTEND: [...] BPH-s/p UroLift 01/03/2023, schizophrenia was transferred from [facility] with acute kidney injury and [...] (Auto) (14.0 - 32.0 %) 7.1 L [place] % (Auto) (4.8 - 9.0 %) 8.1 Eos % (Auto) (0.3 - 3.7 %) 0.4 Baso % (Auto) (0.0 - 2.0 %) 0.1 Neut # (Auto) (2.0 - 7.6 x10 3/uL) 9.37 H Lymph # (Auto) (1.0 - 3.8 x10 3/uL) 0.79 L [place] # (Auto) (0.1 - 0.8 x10 3/uL) [...] 3/uL) 0.[address] ABD PELVIS W/CONT 90224 EXAM: CT abdomen and pelvis with contrast [...] Discharge Instructions Additional Discharge Routines: PCP Follow-Up, Territory Development Manager Follow-Up )( Diet: Regular Follow-up Appointments PCP follow up: PCP: Lakhwinder Guillermo MD PCP follow up timeframe: In 5 days Attending Physician: Attending Physician: Salinas Alba MD Attending physician follow up timeframe: In 1-2 weeks Consulting provider 1: Provider 1: Dave Jones MD Specialty: Urology Consult follow up timeframe: In 1-2 weeks at [facility] #:[id number] END OF REPORT [facility] 2023-02-04 04:06:00 [facility] ([facility]) Discharge Summary REPORT#:[id number] REPORT STATUS: Signed REPORT INITIALIZATION DATE:02/04/23 TIME: 405 PATIENT: MATHEW CASTILLO UNIT #: [id number] ROOM/BED: [place] [address] : 58 AGE: 62 SEX: M ATTEND: [...] lift yesterday by Dr. Jones transferred from [place] for urology evaluation secondary to hematuria after bladder irrigation failed. Patient was seen and evaluated by Dr. 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 Last admitted to [facility] on 10/16/22 with urinary retention. [...] of motion, normal sensory, normal motor function Neuro/ALGORITHM DEVELOPER: alert, oriented X 3 Skin: dry, intact, [...] % (Auto) (14.0 - 32.0 %) 20.8 [place] % (Auto) (4.8 - 9.0 %) 7.7 Eos % (Auto) (0.3 - 3.7 %) 8.1 H Baso % (Auto) (0.0 - 2.0 %) 0.7 Neut # (Auto) (2.0 - 7.6 x10 3/uL) 4.51 Lymph # (Auto) (1.0 - 3.8 x10 3/uL) 1.51 [place] # (Auto) (0.1 - 0.8 x10 3/uL) [...] 3/uL) 0.[address] ABD PELVIS W/CONT 11416 H 20 TIME OF STUDY: 01/04/2023 7:55 [...] Discharge Instructions Additional Discharge Routines: PCP Follow-Up, Territory Development Manager Follow-Up )( Diet: Cardiac Follow-up Appointments PCP follow up: PCP: Lakhwinder Guillermo MD PCP follow up timeframe: In 5 days Special instructions: CALL TO MAKE APPOINTMENT Consulting provider 1: Provider 1: Dave Jones MD Specialty: Urology Special instructions: CALL TO SCHEDULE APPOINTMENT at 0735 [facility] #:[id number] END OF REPORT [facility] 2023-01-27 18:31:00 [id number] [place] [address] PATIENT NAME: MATHEW CASTILLO ADMIT DATE: 01/06/23 ACCOUNT NO: [id number] ROOM NO: G.C146 AGE: 62 REPORT TYPE: 360 - QUERY RESPONSE DOCUMENT SEX: M ADMITTING PHYSICIAN:Salinas Alba MD ATTENDING PHYSICIAN:Salinas Alba MD Provider Query QUERY TEXT: Condition General 360MD Query related questions should be directed to: [facility] Coding Query Helpline [Based on the below [...] AM at 1831 PATIENT NAME: MATHEW CASTILLO [facility] 2023-01-27 13:09:00 [id number] [place] [address] PATIENT NAME: MATHEW CASTILLO ADMIT DATE: 01/06/23 ACCOUNT NO: [id number] ROOM NO: G.C146 AGE: 62 REPORT TYPE: 360 - QUERY RESPONSE DOCUMENT SEX: M ADMITTING PHYSICIAN:Salinas Alba MD ATTENDING PHYSICIAN:Salinas Alba MD Provider Query QUERY TEXT: Condition General 360MD Query related questions should be directed to: [facility] Coding Query Helpline [Based on your medical judgement and the clinical indicators listed below kindly specify the underlying cause of the patient's heamaturia(Hematuria due to bladder lift surgery, hematuria due to UTI, hematuria unspecified, or other more appropriate diagnosis)?.] The patient's Clinical Indicators include: 62-year-old male with last medical history of, BPH, s/p bladder lift yesterdayby Dr. Jones transferred from [place] for urology evaluation secondary tohematuria after bladder [...] AM at 1309 PATIENT NAME: MATHEW CASTILLO [facility] 2023-01-27 13:09:00 [id number] [place] [address] PATIENT NAME: MATHEW CASTILLO ADMIT DATE: 01/06/23 ACCOUNT NO: [id number] ROOM NO: G.C146 AGE: 62 REPORT TYPE: 360 - QUERY RESPONSE DOCUMENT SEX: M ADMITTING PHYSICIAN:Salinas Alba MD ATTENDING PHYSICIAN:Salinas Alba MD Provider Query QUERY TEXT: Condition General 360MD Query related questions should be directed to: [facility] Coding Query Helpline [Based on your clinical [...] culture, likely could be either contaminant or admitting representative of transient bacteremia: progress note 01/11/2023 Options provided: -- Respond - Create new note now -- Dismiss - Not applicable / Not valid -- Dismiss - Clinically unable to determine / Unknown -- Assign to another provider QUERY RESPONSE: sepsis was not confirmed, patient had localized infection Query created by: MADY PEREZ on 01/22/2023 3:09 AM at 1309 PATIENT NAME: MATHEW CASTILLO [facility] 2023-01-22 17:40:00 [facility] Internal Medicine Prog. Note REPORT#:[id number] REPORT STATUS: Signed REPORT INITIALIZATION DATE:01/22/23 TIME: 1739 PATIENT: MATHEW CASTILLO UNIT #: [id number] ROOM/BED: [place] [address] : 59 AGE: 62 SEX: M ATTEND: Salinas Alba MD ADM AUTHOR: Sofia Cheng MOVIE STAR REPT SERVICE DT/TIME: 01/22/231739 * ALL edits [...] Sodium Chloride (SODIUM CHLORIDE 0.9%) 1,000 ML .[id number] IV Haloperidol (HALDOL) 10 MG BID PO [...] (Auto) (14.0 - 32.0 %) 9.8 L [place] % (Auto) (4.8 - 9.0 %) 9.0 Eos % (Auto) (0.3 - 3.7 %) 5.7 H Baso % (Auto) (0.0 - 2.0 %) 0.4 Neut # (Auto) (2.0 - 7.6 x10 3/uL) 7.35 Lymph # (Auto) (1.0 - 3.8 x10 3/uL) 0.97 L [place] # (Auto) (0.1 - 0.8 x10 3/uL) [...] discharged see discharge summery at 2132 RPT #:[id number] END OF REPORT [facility] 2023-01-22 12:19:00 [facility] Nephrology Consultation Note REPORT#:[id number] REPORT STATUS: Signed REPORT INITIALIZATION DATE:01/22/23 TIME: 1218 PATIENT: MATHEW CASTILLO UNIT #: [id number] ROOM/BED: [place] [address] : 59 AGE: 62 SEX: M ATTEND: [...] patient given empirc abx and transferred to [facility] yesterday for further evaluation and management. Initial [...] Time Status Admin Sodium Chloride 1,000 ML .[id number] 01/21 2330 AC 01/22 (SODIUM CHLORIDE IV [...] Sodium Chloride (SODIUM CHLORIDE 0.9%) 1,000 ML .[id number] IV Haloperidol (HALDOL) 10 MG BID PO [...] (Auto) (14.0 - 32.0 %) 9.8 L [place] % (Auto) (4.8 - 9.0 %) 9.0 Eos % (Auto) (0.3 - 3.7 %) 5.7 H Baso % (Auto) (0.0 - 2.0 %) 0.4 Neut # (Auto) (2.0 - 7.6 x10 3/uL) 7.35 Lymph # (Auto) (1.0 - 3.8 x10 3/uL) 0.97 L [place] # (Auto) (0.1 - 0.8 x10 3/uL) [...] and . at 1923 at 1933 RPT #:[id number] END OF REPORT [facility] 2023-01-21 19:40:00 [facility]) Urology Consult Note REPORT#:[id number] REPORT STATUS: Signed REPORT INITIALIZATION DATE:01/21/23 TIME: 1939 PATIENT: MATHEW CASTILLO UNIT #: [id number] ROOM/BED: [place] [address] : 59 AGE: 62 SEX: M ATTEND: [...] at outside hospital and was transferred to [place] with acute renal failure and urinary retention. Outside labs showed creatinine of 5.6, GFR 11. They were able to place a catheter at the outside hospital and his creatinine currently is 2.6 GFR 27. Patient feels overall well he has a [address] that is patent and [...] (Auto) (14.0 - 32.0 %) 7.1 L [place] % (Auto) (4.8 - 9.0 %) 8.1 Eos % (Auto) (0.3 - 3.7 %) 0.4 Baso % (Auto) (0.0 - 2.0 %) 0.1 Neut # (Auto) (2.0 - 7.6 x10 3/uL) 9.37 H Lymph # (Auto) (1.0 - 3.8 x10 3/uL) 0.79 L [place] # (Auto) (0.1 - 0.8 x10 3/uL) [...] in outside hospital and was transferred to [place]. He has indwelling Black placed from the [...] [facility] at 1948 RPT #:[id number] END OF REPORT [facility] 2023-01-21 10:48:00 [facility] ([facility]) History Physical - Adult REPORT#:[id number] REPORT STATUS: Signed REPORT INITIALIZATION DATE:01/21/23 TIME: 104 PATIENT: MATHEW CASTILLO UNIT #: [id number] ROOM/BED: [place] [address] : 58 AGE: 62 SEX: M ATTEND: Salinas Alba MD ADM AUTHOR: Sofia Cheng NP REPT SERVICE DT/TIME: 01/21/23 1048 * ALL edits or amendments must be made on the electronic/computer document * History of Present Illness HPI Chief complaint: Acute kidney injury Urinary retention HPI: 62-year-old male with last medical history of, BPH-s/p UroLift 01/03/2023, schizophrenia was transferred from [facility] ER with acute kidney injury and urinary [...] of motion, normal sensory, normal motor function Neuro/ALGORITHM DEVELOPER: alert, oriented X 3 Skin: dry, intact, [...] (Auto) (14.0 - 32.0 %) 7.1 L [place] % (Auto) (4.8 - 9.0 %) 8.1 Eos % (Auto) (0.3 - 3.7 %) 0.4 Baso % (Auto) (0.0 - 2.0 %) 0.1 Neut # (Auto) (2.0 - 7.6 x10 3/uL) 9.37 H Lymph # (Auto) (1.0 - 3.8 x10 3/uL) 0.79 L [place] # (Auto) (0.1 - 0.8 x10 3/uL) [...] of motion, normal sensory, normal motor function Neuro/ALGORITHM DEVELOPER: alert, oriented X 3 Skin: dry, intact, no gross abnormalities Psychiatry: Mild anxiety Diagnosis, Assessment Plan Free Text DxA P Notes Free Text DxA P Notes: Assessment: 62-year-old male with last medical history of, BPH-s/p UroLift 01/03/2023, schizophrenia was transferred from [facility] ER with acute kidney injury and urinary [...] on patient's clinical course at 0300 at 1614 RPT #:[id number] END OF REPORT [facility] 2023-01-21 05:27:00 [facility] ([facility]) EMERGENCY PROVIDER REPORT REPORT#:[id number] REPORT STATUS: Signed DATE:01/21/23 TIME: 526 PATIENT: MATHEW CASTILLO UNIT #: [id number] ROOM/BED: 5507-1 AGE: 62 SEX: M PCP PHYS: Lakhwinder Guillermo MD SERVICE AUTHOR: Elizabeth Davenport * ALL edits or amendments must be made on the electronic/computer document * Elizabeth Davenport 01/21/23 0527: HPI-General Illness Free Text HPI Notes Free Text HPI Notes 62-year-old male with PMH as listed below presents to the ER as a transfer from [facility] ER for diagnoses of ARF, urinary retention. 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 Negative Sibley Sign. [facility] : Indwelling Black, straw-colored, non-cloudy urine, [...] (Auto) (14.0 - 32.0 %) 7.1 L [place] % (Auto) (4.8 - 9.0 %) 8.1 Eos % (Auto) (0.3 - 3.7 %) 0.4 Baso % (Auto) (0.0 - 2.0 %) 0.1 Neut # (Auto) (2.0 - 7.6 x10 3/uL) 9.37 H Lymph # (Auto) (1.0 - 3.8 x10 3/uL) 0.79 L [place] # (Auto) (0.1 - 0.8 x10 3/uL) [...] the patient along with involvement of the PA/MOVIE STAR. I agree with the PA/systems software specialist findings and plan. I have performed all aspects of MDM as documented including: evaluation of the patient/ patient's condition(s), review and analysis of available data, and determination of risk of patient management decisions. at 2244 at 1025 [facility] #:[id number] END OF REPORT [facility] 2023-01-15 09:31:00 [id number] [place] [address] PATIENT NAME: MATHEW CASTILLO ADMIT DATE: 01/06/23 ACCOUNT NO: [id number] ROOM NO: G.C146 AGE: 62 REPORT TYPE: 360 - QUERY RESPONSE DOCUMENT SEX: M ADMITTING PHYSICIAN:Salinas Alba MD ATTENDING PHYSICIAN:Salinas Alba MD Provider Query QUERY TEXT: Clarification Rule In Rule Out 360MD Query related questions should be directed to: [facility] Coding Query Help-line Based on your clinical [...] AM at 0931 PATIENT NAME: MATHEW CASTILLO [facility] 2023-01-11 17:08:00 [id number] [address] PATIENT NAME: MATHEW CASTILLO ADMIT DATE: 01/06/23 ACCOUNT NO: [id number] ROOM NO: [facility] AGE: 62 REPORT TYPE: PROGRESS NOTE [...] admitted through Emergency Room to [facility] facility in [place], and from there, he was transferred to [facility]. The patient PATIENT NAME: MATHEW CASTILLO was evaluated by Urology Service. He was placed on broad-spectrum IV antibiotics. His urine culture has shown growth of Pseudomonas aeruginosa and 1 out of 2 blood culture has shown growth of Enterococcus faecalis. The Enterococcus faecalis growing in 1 blood culture, likely could be either contaminant or admitting representative of transient bacteremia. Clinically is doing [...] Date Transcribed: 01/11/2023 18:52:55 ESTRADA/JORGE Receipt ID: [id number] Authenticated and Edited by Skip Jaffe MD On 01/22/23 5:19:12 AM at 0520 PATIENT NAME: MATHEW CASTILLO [facility] 2023-01-10 21:43:00 [facility] ([facility]) Internal Medicine Prog. Note REPORT#:[id number] REPORT STATUS: Signed REPORT INITIALIZATION DATE:01/10/23 TIME: 2142 PATIENT: MATHEW CASTILLO UNIT #: [id number] ROOM/BED: [address] : 58 AGE: 62 SEX: M ATTEND: Salinas Alba MD ADM AUTHOR: Sofia Cheng NP REPT SERVICE DT/TIME: 01/10/232142 * ALL edits or amendments must be made on the electronic/computer document * Subjective Chief complaint: Hematuria HPI: 62-year-old male with last medical history of, BPH, s/p bladder lift yesterday by Dr. Jones transferred from [place] for urology evaluation secondary to hematuria after bladder irrigation failed. pt was seen and evaluated by Dr. 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 Last admitted to [facility] on 10/16/22 with urinary retention. [...] Sodium Chloride (SODIUM CHLORIDE 0.9%) 1,000 ML .[id number] IV (DC) Sodium Chloride (SODIUM CHLORIDE 0.9%) [...] of motion, normal sensory, normal motor function Neuro/ALGORITHM DEVELOPER: 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 Jones transferred from [place] for urology evaluation secondary to hematuria after bladder irrigation failed. pt was seen and evaluated by Dr. 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 Last admitted to [facility] on 10/16/22 with urinary retention. [...] urology outpatient at 0024 at 0814 RPT #:[id number] END OF REPORT [facility] 2023-01-10 20:39:00 [facility] ([facility]) Infectious Dis. Progress Note REPORT#:[id number] REPORT STATUS: Signed REPORT INITIALIZATION DATE:01/10/23 TIME: 2038 PATIENT: MATHEW CASTILLO UNIT #: [id number] ROOM/BED: [facility]-1 : 59 AGE: 62 SEX: M ATTEND: [...] him home on oral ciprofloxacin. at 0244 [facility] #:[id number] END OF REPORT [facility] 2023-01-10 08:39:00 [id number] [place] [id number] PATIENT NAME: MATHEW CASTILLO ADMIT DATE: 01/06/23 ACCOUNT NO: [id number] ROOM NO: [facility] AGE: 62 REPORT TYPE: PROGRESS NOTE [...] Date Transcribed: 01/10/2023 09:42:11 ESTRADA/KYLE Receipt ID: [id number] Authenticated and Edited by Skip Jaffe MD On 01/22/23 5:19:04 AM at 0520 PATIENT NAME: MATHEW CASTILLO [facility] 2023-01-09 22:29:00 [facility]) Internal Medicine Prog. Note REPORT#:[id number] REPORT STATUS: Signed REPORT INITIALIZATION DATE:01/09/23 TIME: 2228 PATIENT: MATHEW CASTILLO UNIT #: [id number] ROOM/BED: [place] [address] : 58 AGE: 62 SEX: M ATTEND: Salinas Alba MD ADM AUTHOR: Sofia Cheng NP REPT SERVICE DT/TIME: 01/09/232228 * ALL edits or amendments must be made on the electronic/computer document * Subjective Chief complaint: Hematuria HPI: 62-year-old male with last medical history of, BPH, s/p bladder lift yesterday by Dr. Jones transferred from [place] for urology evaluation secondary to hematuria after bladder irrigation failed. pt was seen and evaluated by Dr. 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 Last admitted to [facility] on 10/16/22 with urinary retention. [...] Sodium Chloride (SODIUM CHLORIDE 0.9%) 1,000 ML .[id number] IV Sodium Chloride (SODIUM CHLORIDE 0.9%) 1,000 [...] % (Auto) (14.0 - 32.0 %) 20.8 [place] % (Auto) (4.8 - 9.0 %) 7.7 Eos % (Auto) (0.3 - 3.7 %) 8.1 H Baso % (Auto) (0.0 - 2.0 %) 0.7 Neut # (Auto) (2.0 - 7.6 x10 3/uL) 4.51 Lymph # (Auto) (1.0 - 3.8 x10 3/uL) 1.51 [place] # (Auto) (0.1 - 0.8 x10 3/uL) [...] of motion, normal sensory, normal motor function Neuro/ALGORITHM DEVELOPER: 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 Jones transferred from [place] for urology evaluation secondary to hematuria after bladder irrigation failed. pt was seen and evaluated by Dr. 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 Last admitted to [facility] on 10/16/22 with urinary retention. [...] present care at 2359 at 1240 RPT #:[id number] END OF REPORT [facility] 2023-01-09 19:20:00 [facility] ([facility]) Infectious Dis. Progress Note REPORT#:[id number] REPORT STATUS: Signed REPORT INITIALIZATION DATE:01/09/23 TIME: 1919 PATIENT: MATHEW CASTILLO UNIT #: [id number] ROOM/BED: [place] [address] : 59 AGE: 62 SEX: M ATTEND: [...] him home on oral ciprofloxacin. at 0432 [facility] #:[id number] END OF REPORT [facility] 2023-01-09 18:36:00 [id number] [place] [address] PATIENT NAME: MATHEW CASTILLO ADMIT DATE: 01/06/23 ACCOUNT NO: [id number] ROOM NO: G.C146 AGE: 62 REPORT TYPE: [...] was PATIENT NAME: MATHEW CASTILLO admitted to [place], and from there, he was transferred to [facility] for urology followup. The patient [...] Dictated: 01/09/2023 18:36:08 Date Transcribed: 01/09/2023 20:19:12 /[facility] Receipt ID: [id number] Authenticated and Edited by Skip Jaffe MD On 01/22/23 5:18:55 AM at 0520 PATIENT NAME: MATHEW CASTILLO [facility] 2023-01-09 11:30:00 [facility]) Urology Progress Note REPORT#:[id number] REPORT STATUS: Signed REPORT INITIALIZATION DATE:01/09/23 TIME: 113 PATIENT: MATHEW CASTILLO UNIT #: [id number] ROOM/BED: [place] [address] : 58 AGE: 62 SEX: M ATTEND: [...] as planned in clinic at 1131 RPT #:[id number] END OF REPORT [facility] 2023-01-08 21:19:00 [facility] ([facility]) Internal Medicine Prog. Note REPORT#:[id number] REPORT STATUS: Signed REPORT INITIALIZATION DATE:01/08/23 TIME: 2118 PATIENT: MATHEW CASTILLO UNIT #: [id number] ROOM/BED: [place] [address] : 58 AGE: 62 SEX: M ATTEND: Salinas Alba MD ADM AUTHOR: Sofia Cheng MOVIE STAR REPT SERVICE DT/TIME: 01/08/232118 * ALL edits or amendments must be made on the electronic/computer document * Subjective Chief complaint: Hematuria HPI: 62-year-old male with last medical history of, BPH, s/p bladder lift yesterday by Dr. Jones transferred from [place] for urology evaluation secondary to hematuria after bladder irrigation failed. pt was seen and evaluated by Dr. 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 Last admitted to [facility] on 10/16/22 with urinary retention. [...] Sodium Chloride (SODIUM CHLORIDE 0.9%) 1,000 ML .[id number] IV Sodium Chloride (SODIUM CHLORIDE 0.9%) 1,000 [...] % (Auto) (14.0 - 32.0 %) 22.3 [place] % (Auto) (4.8 - 9.0 %) 6.9 Eos % (Auto) (0.3 - 3.7 %) 9.9 H Baso % (Auto) (0.0 - 2.0 %) 0.9 Neut # (Auto) (2.0 - 7.6 x10 3/uL) 3.89 Lymph # (Auto) (1.0 - 3.8 x10 3/uL) 1.46 [place] # (Auto) (0.1 - 0.8 x10 3/uL) [...] of motion, normal sensory, normal motor function Neuro/ALGORITHM DEVELOPER: 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 Jones transferred from [place] for urology evaluation secondary to hematuria after bladder irrigation failed. pt was seen and evaluated by Dr. 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 Last admitted to [facility] on 10/16/22 with urinary retention. [...] present care at 2359 at 1240 RPT #:[id number] END OF REPORT [facility] 2023-01-08 18:59:00 [facility] ([facility]) Infectious Dis. Progress Note REPORT#:[id number] REPORT STATUS: Signed REPORT INITIALIZATION DATE:01/08/23 TIME: 1858 PATIENT: MATHEW CASTILLO UNIT #: [id number] ROOM/BED: [place] [address] : 59 AGE: 62 SEX: M ATTEND: Salinas Alba MD ADM AUTHOR: Skip Jaffe MD REPT SERVICE DT/TIME: 01/08/23 7594 * ALL edits or amendments must be [...] him home on oral ciprofloxacin. at 0321 [facility] #:[id number] END OF REPORT [facility] 2023-01-08 18:22:00 [id number] [address] PATIENT NAME: MATHEW CASTILLO ADMIT DATE: 01/06/23 ACCOUNT NO: [id number] ROOM NO: G.C146 AGE: 62 REPORT TYPE: [...] Dictated: 01/08/2023 18:22:31 Date Transcribed: 01/08/2023 19:55:35 /[facility] Receipt ID: [id number] Authenticated and Edited by Skip Jaffe MD On 01/22/23 5:18:46 AM at 0520 PATIENT NAME: MATHEW CASTILLO [facility] 2023-01-08 17:58:00 [facility] ([facility]) Urology Progress Note REPORT#:[id number] REPORT STATUS: Signed REPORT INITIALIZATION DATE:01/08/23 TIME: 1757 PATIENT: MATHEW CASTILLO UNIT #: [id number] ROOM/BED: [address] : [birth year] AGE: 62 SEX: M [...] % (Auto) (14.0 - 32.0 %) 22.3 [place] % (Auto) (4.8 - 9.0 %) 6.9 Eos % (Auto) (0.3 - 3.7 %) 9.9 H Baso % (Auto) (0.0 - 2.0 %) 0.9 Neut # (Auto) (2.0 - 7.6 x10 3/uL) 3.89 Lymph # (Auto) (1.0 - 3.8 x10 3/uL) 1.46 [place] # (Auto) (0.1 - 0.8 x10 3/uL) [...] discharge with black tomorrow at 1759 RPT #:[id number] END OF REPORT [facility] 2023-01-08 02:42:00 [facility] ([facility]) Infectious Dis. Progress Note REPORT#:[id number] REPORT STATUS: Signed REPORT INITIALIZATION DATE:01/08/23 TIME: 024 PATIENT: MATHEW CASTILLO UNIT #: [id number] ROOM/BED: [place] [address] : 59 AGE: 62 SEX: M ATTEND: [...] patient on IV Zosyn. at 0353 RPT #:[id number] END OF REPORT [facility] 2023-01-07 21:05:00 [facility] Internal Medicine Prog. Note REPORT#:[id number] REPORT STATUS: Signed REPORT INITIALIZATION DATE:01/07/23 TIME: 2104 PATIENT: MATHEW CASTILLO UNIT #: [id number] ROOM/BED: [place] [address] : 59 AGE: 62 SEX: M ATTEND: Salinas Alba MD ADM AUTHOR: Sofia Cheng NP REPT SERVICE DT/TIME: 01/07/232104 * ALL edits or amendments must be made on the electronic/computer document * Subjective Chief complaint: Hematuria HPI: 62-year-old male with last medical history of, BPH, s/p bladder lift yesterday by Dr. Jones transferred from [place] for urology evaluation secondary to hematuria after bladder irrigation failed. pt was seen and evaluated by Dr. 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 Last admitted to [facility] on 10/16/22 with urinary retention. [...] Sodium Chloride (SODIUM CHLORIDE 0.9%) 1,000 ML .[id number] IV Sodium Chloride (SODIUM CHLORIDE 0.9%) 1,000 [...] % (Auto) (14.0 - 32.0 %) 21.2 [place] % (Auto) (4.8 - 9.0 %) 7.2 Eos % (Auto) (0.3 - 3.7 %) 10.4 H Baso % (Auto) (0.0 - 2.0 %) 0.8 Neut # (Auto) (2.0 - 7.6 x10 3/uL) 3.56 Lymph # (Auto) (1.0 - 3.8 x10 3/uL) 1.26 [place] # (Auto) (0.1 - 0.8 x10 3/uL) [...] of motion, normal sensory, normal motor function Neuro/ALGORITHM DEVELOPER: 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 Jones transferred from [place] for urology evaluation secondary to hematuria after bladder irrigation failed. pt was seen and evaluated by Dr. 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 Last admitted to [facility] on 10/16/22 with urinary retention. [...] medications and present care at 2222 at 0740 RPT #:[id number] END OF REPORT [facility] 2023-01-07 16:17:00 [facility] ([facility]) Urology Progress Note REPORT#:[id number] REPORT STATUS: Signed REPORT INITIALIZATION DATE:01/07/23 TIME: 1616 PATIENT: MATHEW CASTILLO UNIT #: [id number] ROOM/BED: [place] [address] : 59 AGE: 62 SEX: M ATTEND: [...] - discharge with black tomorrow at 1617 [facility] #:[id number] END OF REPORT [facility] 2023-01-07 05:20:00 [id number] [place], [place] [address] PATIENT NAME: MATHEW CASTILLO ADMIT DATE: 01/06/23 ACCOUNT NO: [id number] ROOM NO: [facility] AGE: 62 REPORT TYPE: PROGRESS NOTE [...] Date Transcribed: 01/07/2023 05:56:47 ESTRADA/JORGE Receipt ID: [id number] Authenticated and Edited by Skip Jaffe MD On 01/22/23 5:18:20 AM at 0520 PATIENT NAME: MATHEW CASTILLO [facility] 2023-01-06 21:39:00 [facility]) Internal Medicine Prog. Note REPORT#:[id number] REPORT STATUS: Signed REPORT INITIALIZATION DATE:01/06/23 TIME: 2138 PATIENT: MATHEW CASTILLO UNIT #: [id number] ROOM/BED: [place] [address] : 59 AGE: 62 SEX: M ATTEND: Salinas Alba MD ADM AUTHOR: Sofia Cheng MOVIE STAR REPT SERVICE DT/TIME: 01/06/232138 * ALL edits or amendments must be made on the electronic/computer document * Subjective Chief complaint: Hematuria HPI: 62-year-old male with last medical history of, BPH, s/p bladder lift yesterday by Dr. Jones transferred from [place] for urology evaluation secondary to hematuria after bladder irrigation failed. pt was seen and evaluated by Dr. 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 Last admitted to [facility] on 10/16/22 with urinary retention. [...] Sodium Chloride (SODIUM CHLORIDE 0.9%) 1,000 ML .[id number] IV Sodium Chloride (SODIUM CHLORIDE 0.9%) 1,000 [...] (Auto) (14.0 - 32.0 %) 11.8 L [place] % (Auto) (4.8 - 9.0 %) 7.5 Eos % (Auto) (0.3 - 3.7 %) 3.2 Baso % (Auto) (0.0 - 2.0 %) 0.4 Neut # (Auto) (2.0 - 7.6 x10 3/uL) 7.43 Lymph # (Auto) (1.0 - 3.8 x10 3/uL) 1.14 [place] # (Auto) (0.1 - 0.8 x10 3/uL) [...] of motion, normal sensory, normal motor function Neuro/ALGORITHM DEVELOPER: 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 Jones transferred from [place] for urology evaluation secondary to hematuria after bladder irrigation failed. pt was seen and evaluated by Dr. 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 Last admitted to [facility] on 10/16/22 with urinary retention. [...] supportive care at 0015 at 0740 RPT #:[id number] END OF REPORT [facility] 2023-01-06 19:39:00 [facility] ([facility]) Urology Progress Note REPORT#:[id number] REPORT STATUS: Signed REPORT INITIALIZATION DATE:01/06/23 TIME: 1938 PATIENT: MATHEW CASTILLO UNIT #: [id number] ROOM/BED: [place] [address] : 59 AGE: 62 SEX: M ATTEND: [...] (Auto) (14.0 - 32.0 %) 11.8 L [place] % (Auto) (4.8 - 9.0 %) 7.5 Eos % (Auto) (0.3 - 3.7 %) 3.2 Baso % (Auto) (0.0 - 2.0 %) 0.4 Neut # (Auto) (2.0 - 7.6 x10 3/uL) 7.43 Lymph # (Auto) (1.0 - 3.8 x10 3/uL) 1.14 [place] # (Auto) (0.1 - 0.8 x10 3/uL) [...] wean cbi as tolerated at 1941 RPT #:[id number] END OF REPORT [facility] 2023-01-06 19:19:00 [facility] ([facility]) Infectious Dis. Progress Note REPORT#:[id number] REPORT STATUS: Signed REPORT INITIALIZATION DATE:01/06/23 TIME: 1918 PATIENT: MATHEW CASTILLO UNIT #: [id number] ROOM/BED: [place] [address] : 59 AGE: 62 SEX: M ATTEND: [...] on January 03, [address] Reinaldo Joens. Recurrent fever and leukocytosis most secondary to [...] possibility. [place] [id number] colony-forming units of the Gram- negative rods. Identification and susceptibility is pending. Keep the patient on IV Zosyn. at 0411 RPT #:[id number] END OF REPORT [facility] 2023-01-06 17:40:00 [id number] [facility] on [place] [address] PATIENT NAME: MATHEW CASTILLO ADMIT DATE: 01/06/23 ACCOUNT NO: [id number] ROOM NO: [facility] AGE: 62 REPORT TYPE: CONSULTATION REPORT SEX: M ADMITTING PHYSICIAN:Salinas Alba MD ATTENDING PHYSICIAN:Salinas Alba MD CONSULTATION DATE: 01/05/2023 INFECTIOUS DISEASE CONSULTATION The patient examined, chart reviewed, old records reviewed. Thank you, Dr. Michael, for asking me to evaluate Mr. Mathew Castillo. HISTORY OF PRESENT ILLNESS: Mr. Castillo is known to me from his recent hospitalization at [facility] in 10/2022. He is a 62-year-old male with a past medical history of schizophrenia, benign prostatic hypertrophy with recurrent urinary symptomatology, history of previous episode of urinary retention due to bladder neck obstruction requiring indwelling Black catheter placement and hospitalization in October of 2022. The patient lives in [place] and he had an outpatient prostate procedure done by Dr. Dave Jones with UroLift on Friday01/03/2023 and was discharged home on the same day. The patient went back to [place]. However, subsequently, he started to notice ladan hematuria on Friday and had no other constitutional symptoms including fever or chills. The patient because of worsening hematuria decided to go to the hospital. He went to hospital in [place] and he was told to follow up with the urologist and he was transferred to the [facility]. The patient at present is [...] single. He lives with his daughter in [place]. The patient has been a longtime smoker and continues to smoke. No history of IV drug use, alcohol use, or substance abuse. 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 [place] admission, [place] [address]. The patient had 2 blood cultures done. Urine culture is incubating. ASSESSMENT: The patient with multiple comorbidities including history of benign prostatic hypertrophy with previous episode of urinary retention requiring indwelling Black catheter placement has undergone an UroLift procedure on 01/03/2023, and subsequently was discharged on the same day; however, yesterday he started to have hematuria and was seen at a hospital in [facility] and is transferred to [facility] for further Urology evaluation. 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 adjusto writer operator today, and he is empirically started [...] Date Transcribed: 01/06/2023 21:28:36 DORADO/GLORIA Receipt ID: [id number] Authenticated by Skip Jaffe MD On 01/22/2023 05:17:37 AM at 0517 PATIENT NAME: AMTHEW CASTILLO [facility] 2023-01-05 23:00:00 [facility] ([facility]) Infect Disease Consult Note REPORT#:[id number] REPORT STATUS: Signed REPORT INITIALIZATION DATE:01/05/23 TIME: 2299 PATIENT: MATHEW CASTILLO UNIT #: [id number] ROOM/BED: [place] [address] : 59 AGE: 62 SEX: M ATTEND: [...] our service from his recent hospitalization at [facility] in October of 2022. ASSESSMENT [...] No Known Allergies (10/16/22) at 0526 RPT #:[id number] END OF REPORT [facility] 2023-01-05 13:05:00 [facility] ([facility]) Urology Consult Note REPORT#:[id number] REPORT STATUS: Signed REPORT INITIALIZATION DATE:01/05/23 TIME: 1305 PATIENT: MATHEW CASTILLO UNIT #: [id number] ROOM/BED: [place] [address] : 59 AGE: 62 SEX: M ATTEND: [...] (Auto) (14.0 - 32.0 %) 4.5 L [place] % (Auto) (4.8 - 9.0 %) 6.1 Eos % (Auto) (0.3 - 3.7 %) 0.3 Baso % (Auto) (0.0 - 2.0 %) 0.2 Neut # (Auto) (2.0 - 7.6 x10 3/uL) 15.99 H Lymph # (Auto) (1.0 - 3.8 x10 3/uL) 0.82 L [place] # (Auto) (0.1 - 0.8 x10 3/uL) [...] (Auto) (14.0 - 32.0 %) 5.4 L [place] % (Auto) (4.8 - 9.0 %) 5.3 Eos % (Auto) (0.3 - 3.7 %) 0.0 L Baso % (Auto) (0.0 - 2.0 %) 0.2 Neut # (Auto) (2.0 - 7.6 x10 3/uL) 14.77 H Lymph # (Auto) (1.0 - 3.8 x10 3/uL) 0.90 L [place] # (Auto) (0.1 - 0.8 x10 3/uL) [...] pH (5.0 - 7.0) 7.0 Ur Specific Spencer (1.005 - 1.030) 1.005 Urine Protein (NEGATIVE) [...] [facility] at 1312 RPT #:[id number] END OF REPORT [facility] 2023-01-05 11:34:00 [facility] ([facility]) History Physical - Adult REPORT#:[id number] REPORT STATUS: Signed REPORT INITIALIZATION DATE:01/05/23 TIME: 1133 PATIENT: MATHEW CASTILLO UNIT #: [id number] ROOM/BED: [place] [address] : 59 AGE: 62 SEX: M ATTEND: Salinas Alba MD ADM AUTHOR: Sofia Cheng MOVIE STAR REPT SERVICE DT/TIME: 01/05/23 1134 * ALL edits or amendments must be made on the electronic/computer document * History of Present Illness HPI Chief complaint: Hematuria HPI: 62-year-old male with last medical history of, BPH, s/p bladder lift yesterday by Dr. Jones transferred from [place] for urology evaluation secondary to hematuria after bladder irrigation failed. pt was seen and evaluated by Dr. 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 Last admitted to [facility] on 10/16/22 with urinary retention. [...] of motion, normal sensory, normal motor function Neuro/ALGORITHM DEVELOPER: alert, oriented X 3 Skin: dry, intact, [...] (Auto) (14.0 - 32.0 %) 4.5 L [place] % (Auto) (4.8 - 9.0 %) 6.1 Eos % (Auto) (0.3 - 3.7 %) 0.3 Baso % (Auto) (0.0 - 2.0 %) 0.2 Neut # (Auto) (2.0 - 7.6 x10 3/uL) 15.99 H Lymph # (Auto) (1.0 - 3.8 x10 3/uL) 0.82 L [place] # (Auto) (0.1 - 0.8 x10 3/uL) [...] (Auto) (14.0 - 32.0 %) 5.4 L [place] % (Auto) (4.8 - 9.0 %) 5.3 Eos % (Auto) (0.3 - 3.7 %) 0.0 L Baso % (Auto) (0.0 - 2.0 %) 0.2 Neut # (Auto) (2.0 - 7.6 x10 3/uL) 14.77 H Lymph # (Auto) (1.0 - 3.8 x10 3/uL) 0.90 L [place] # (Auto) (0.1 - 0.8 x10 3/uL) [...] pH (5.0 - 7.0) 7.0 Ur Specific Spencer (1.005 - 1.030) 1.005 Urine Protein (NEGATIVE) [...] SCAN - CT ABD PELVIS W/CONT 01/04 9640 Report Impression - Status: SIGNED Entered: 01/04/2023 1792 IMPRESSION: 1. Prostatomegaly. Decompressed bladder with a Black in place. 2. No hydronephrosis. No enhancing renal masses. 3. Cholelithiasis and mildly distended gallbladder. 4. Moderate hiatal hernia. Impression By: Nick Magaña M.D. Diagnosis, Assessment Plan Free Text DxA P Notes Free Text DxA P Notes: Assessment: 62-year-old male with last medical history of, BPH, s/p bladder lift yesterday by Dr. Jones transferred from [place] for urology evaluation secondary to hematuria after bladder irrigation failed. pt was seen and evaluated by Dr. 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 Last admitted to [facility] on 10/16/22 with urinary retention. [...] clinical course at 0055 at 0739 RPT #:[id number] END OF REPORT [facility] 2023-01-05 01:59:00 [facility] ([facility]) Clinical Note REPORT#:[id number] REPORT STATUS: Signed REPORT INITIALIZATION DATE:01/05/23 TIME: 158 PATIENT: MATHEW CASTILLO UNIT #: [id number] ROOM/BED: [place] [address] : 59 AGE: 62 SEX: M ATTEND: Salinas Alba MD ADM AUTHOR: Sofia Cheng NP REPT SERVICE DT/TIME: 01/05/23158 * ALL edits or amendments must be made on the electronic/computer document * Clinical Note Note: Clinical data reviewed Orders placed at 0222 RPT #:[id number] END OF REPORT [facility] 2023-01-04 20:02:00 [facility] ([facility]) EMERGENCY PROVIDER REPORT REPORT#:[id number] REPORT STATUS: Signed DATE:01/04/23 TIME: 2001 PATIENT: MATHEW CASTILLO UNIT #: [id number] ROOM/BED: [facility]-1 AGE: 62 SEX: M PCP PHYS: Lakhwinder [...] Per daughter at bedside patient evaluated at [place] ED MILLINERY WORKER, bladder irrigation attempted without resolution of hematuria. 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 Tachycardic [...] Saw Pt Alone I have reviewed the PA/MOVIE STAR's note and plan of care. I was available for consultation as needed at all times during the patient's visit in the emergency department. I agree with the clinical impression, plan and disposition. at 2148 at 0552 RPT #:[id number] END OF REPORT [facility] 2022-11-19 18:14:00 [facility] ([facility]) Discharge Summary REPORT#:[id number] REPORT STATUS: Signed DATE:11/19/22 TIME: 1813 PATIENT: MATHEW CASTILLO UNIT #: [id number] ROOM/BED: [place] [address] : 59 AGE: 62 SEX: M ATTEND: [...] last medical history of, BPH, transferred from [place] for urology evaluation and treatment secondary to [...] of motion, normal sensory, normal motor function Neuro/ALGORITHM DEVELOPER: alert, oriented X 3 Skin: dry, intact, [...] Discharge Instructions Additional Discharge Routines: PCP Follow-Up, Territory Development Manager Follow-Up )( Diet: Regular Follow-up Appointments PCP [...] instructions: FOR REMOVAL OF BLACK at 1132 [facility] #:[id number] END OF REPORT [facility] 2022-10-26 20:52:00 [id number] [address] PATIENT NAME: MATHEW CASTILLO ADMIT DATE: 10/16/22 ACCOUNT NO: [id number] ROOM NO: [facility] AGE: 62 REPORT TYPE: PROGRESS NOTE SEX: [...] Emergency Room where he was transferred from [place] with acute urinary retention. He had 3 [...] Date Transcribed: 10/26/2022 21:14:58 DORADO/JORGE/CORETTA Receipt ID: [id number] Authenticated and Edited by Skip Jaffe MD On 11/02/22 2:24:00 AM at 0323 PATIENT NAME: MATHEW CASTILLO [facility] 2022-10-26 19:14:00 [facility] Internal Medicine Prog. Note REPORT#:[id number] REPORT STATUS: Signed DATE:10/26/22 TIME: 1913 PATIENT: MATHEW CASTILLO UNIT #: [id number] ROOM/BED: [facility]-1 : 59 AGE: 62 SEX: M ATTEND: Salinas Alba MD ADM AUTHOR: Sofia Cheng MOVIE STAR * ALL edits or amendments must be made on the electronic/computer document * Subjective Chief complaint: Abdominal distention, hydronephrosis HPI: 62-year-old male with last medical history of, BPH, transferred from [place] for urology evaluation and treatment secondary to [...] of motion, normal sensory, normal motor function Neuro/ALGORITHM DEVELOPER: 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 Rupture of ureter Free Text DxA P Notes Free text DxA P notes: Assessment: 62-year-old male with last medical history of, BPH, transferred from [place] for urology evaluation and treatment secondary to [...] supportive care at 2225 at 0830 RPT #:[id number] END OF REPORT [facility] 2022-10-26 13:41:00 [facility] ([facility] Nephrology Progress Note REPORT#:[id number] REPORT STATUS: Signed DATE:10/26/22 TIME: 1341 PATIENT: MATHEW CASTILLO UNIT #: [id number] ROOM/BED: [place] [address] : 59 AGE: 62 SEX: M ATTEND: [...] urine in his bladder. CT abdomen from [place] showed that the patient has a very [...] urine in his bladder. CT abdomen from [place] showed that the patient has a very [...] above A/P at 1342 at 1813 RPT #:[id number] END OF REPORT [facility] 2022-10-25 21:28:00 [facility] ([facility]) Infectious Dis. Progress Note REPORT#:[id number] REPORT STATUS: Signed DATE:10/25/22 TIME: 2127 PATIENT: MATHEW CASTILLO UNIT #: [id number] ROOM/BED: 6630-1 : 59 AGE: 62 SEX: [...] new nosocomial acquired infection. at 0256 RPT #:[id number] END OF REPORT [facility] 2022-10-25 19:13:00 [facility] Nephrology Progress Note REPORT#:[id number] REPORT STATUS: Signed DATE:10/25/22 TIME: 1912 PATIENT: MATHEW CASTILLO UNIT #: [id number] ROOM/BED: [place] [address] : 59 AGE: 62 SEX: M ATTEND: [...] (Auto) (14.0 - 32.0 %) 10.6 L [place] % (Auto) (4.8 - 9.0 %) 4.4 L Eos % (Auto) (0.3 - 3.7 %) 2.4 Baso % (Auto) (0.0 - 2.0 %) 0.5 Neut # (Auto) (2.0 - 7.6 x10 3/uL) 12.30 H Lymph # (Auto) (1.0 - 3.8 x10 3/uL) 1.60 [place] # (Auto) (0.1 - 0.8 x10 3/uL) [...] urine in his bladder. CT abdomen from [place] showed that the patient has a very [...] urine in his bladder. CT abdomen from [place] showed that the patient has a very [...] abx per primary team. at 1914 RPT #:[id number] END OF REPORT [facility] 2022-10-25 19:12:00 [facility] Internal Medicine Prog. Note REPORT#:[id number] REPORT STATUS: Signed DATE:10/25/22 TIME: 1911 PATIENT: MATHEW CASTILLO UNIT #: [id number] ROOM/BED: [place] [address] : 59 AGE: 62 SEX: M ATTEND: Salinas Alba MD ADM AUTHOR: Sofia Cheng NP * ALL edits or amendments must be made on the electronic/computer document * Subjective Chief complaint: Abdominal distention, hydronephrosis HPI: 62-year-old male with last medical history of, BPH, transferred from [place] for urology evaluation and treatment secondary to [...] (Auto) (14.0 - 32.0 %) 10.6 L [place] % (Auto) (4.8 - 9.0 %) 4.4 L Eos % (Auto) (0.3 - 3.7 %) 2.4 Baso % (Auto) (0.0 - 2.0 %) 0.5 Neut # (Auto) (2.0 - 7.6 x10 3/uL) 12.30 H Lymph # (Auto) (1.0 - 3.8 x10 3/uL) 1.60 [place] # (Auto) (0.1 - 0.8 x10 3/uL) [...] of motion, normal sensory, normal motor function Neuro/ALGORITHM DEVELOPER: 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 Rupture of ureter Free Text DxA P Notes Free text DxA P notes: Assessment: 62-year-old male with last medical history of, BPH, transferred from [place] for urology evaluation and treatment secondary to [...] and supportive care at 2224 at 0830 [facility] #:[id number] END OF REPORT [facility] 2022-10-25 10:44:00 [id number] [place], [place] [address] PATIENT NAME: MATHEW CASTILLO ADMIT DATE: 10/16/22 ACCOUNT NO: [id number] ROOM NO: [facility] AGE: 62 REPORT TYPE: PROGRESS NOTE SEX: [...] through Emergency Room initially to hospital in [place] with urinary retention of 2 days' duration and was found to have some extravasation of urine in the peritoneal cavity. The patient was treated with IV antibiotics and had a Black catheter inserted and about 3 liters of urine was drained and the Black was left in place and he was transferred to [facility] for urology evaluation. The patient was evaluated [...] Date Transcribed: 10/25/2022 11:24:45 DORADO/JENNI Receipt ID: [id number] Authenticated and Edited by Skip Jaffe MD On 11/02/22 2:23:50 AM at 0323 PATIENT NAME: MATHEW CASTILLO [facility] 2022-10-24 22:59:00 [facility] Internal Medicine Prog. Note REPORT#:[id number] REPORT STATUS: Signed DATE:10/24/22 TIME: 2258 PATIENT: MATHEW CASTILLO UNIT #: [id number] ROOM/BED: [place] [address] : 59 AGE: 62 SEX: M ATTEND: Salinas Alba MD ADM AUTHOR: Sofia Cheng MOVIE STAR * ALL edits or amendments must be made on the electronic/computer document * Subjective Chief complaint: Abdominal distention, hydronephrosis HPI: 62-year-old male with last medical history of, BPH, transferred from [place] for urology evaluation and treatment secondary to [...] of motion, normal sensory, normal motor function Neuro/ALGORITHM DEVELOPER: 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 Rupture of ureter Free Text DxA P Notes Free text DxA P notes: Assessment: 62-year-old male with last medical history of, BPH, transferred from [place] for urology evaluation and treatment secondary to [...] medications and present care at 2223 at 8251 RPT #:[id number] END OF REPORT [facility] 2022-10-24 19:41:00 [facility] ([facility]) Infectious Dis. Progress Note REPORT#:[id number] REPORT STATUS: Signed DATE:10/24/22 TIME: 1940 PATIENT: MATHEW CASTILLO UNIT #: [id number] ROOM/BED: [facility]30-1 : 59 AGE: 62 SEX: M ATTEND: [...] patient closely for any diarrhea. at 0316 [facility] #:[id number] END OF REPORT [facility] 2022-10-24 19:12:00 [id number] [address] PATIENT NAME: MATHEW CASTILLO ADMIT DATE: 10/16/22 ACCOUNT NO: [id number] ROOM NO: [facility] AGE: 62 REPORT TYPE: PROGRESS NOTE SEX: [...] problems was initially admitted to hospital in [place] where he had presented with urinary retention. The patient was found to have 3 liters of urine in the bladder. He had a Black catheter inserted and subsequently was transferred to [facility] for urology evaluation. He [...] Date Transcribed: 10/24/2022 19:51:44 DORADO/GLORIA Receipt ID: [id number] Authenticated and Edited by Skip Jaffe MD On 11/02/22 2:23:34 AM at 0323 PATIENT NAME: MATHEW CASTILLO [facility] 2022-10-24 16:08:00 [facility] ([facility]) Nephrology Progress Note REPORT#:[id number] REPORT STATUS: Signed DATE:10/24/22 TIME: 1607 PATIENT: MATHEW CASTILLO UNIT #: [id number] ROOM/BED: [place] [address] : 59 AGE: 62 SEX: M ATTEND: [...] urine in his bladder. CT abdomen from [place] showed that the patient has a very [...] urine in his bladder. CT abdomen from [place] showed that the patient has a very [...] above A/P at 1740 at 2124 RPT #:[id number] END OF REPORT [facility] 2022-10-23 21:33:00 [facility] Internal Medicine Prog. Note REPORT#:[id number] REPORT STATUS: Signed DATE:10/23/22 TIME: 2132 PATIENT: MATHEW CASTILLO UNIT #: [id number] ROOM/BED: [facility]30-1 : 59 AGE: 62 SEX: M ATTEND: Salinas Alba MD ADM AUTHOR: Sofia Cheng NP * ALL edits or amendments must be made on the electronic/computer document * Subjective Chief complaint: Abdominal distention, hydronephrosis HPI: 62-year-old male with last medical history of, BPH, transferred from [place] for urology evaluation and treatment secondary to [...] 2.40 mg/dL) 1.53 L 10/22 1700 1119 0708 0637 Chemistry Sodium (134 - 147 mEq/L) [...] of motion, normal sensory, normal motor function Neuro/ALGORITHM DEVELOPER: 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 Rupture of ureter Free Text DxA P Notes Free text DxA P notes: Assessment: 62-year-old male with last medical history of, BPH, transferred from [place] for urology evaluation and treatment secondary to [...] Fall precaution at 0250 at 0842 RPT #:[id number] END OF REPORT [facility] 2022-10-23 18:51:00 [facility] ([facility]) Infectious Dis. Progress Note REPORT#:[id number] REPORT STATUS: Signed DATE:10/23/22 TIME: 1850 PATIENT: MATHEW CASTILLO UNIT #: [id number] ROOM/BED: [facility]301 : 59 AGE: 62 SEX: M ATTEND: [...] closely for any diarrhea. at 0256 RPT #:[id number] END OF REPORT [facility] 2022-10-23 18:27:00 [id number] [place] [address] PATIENT NAME: MATHEW CASTILLO ADMIT DATE: 10/16/22 ACCOUNT NO: [id number] ROOM NO: G.6630 AGE: 62 REPORT TYPE: [...] Emergency Room where he was transferred from [facility] because of urinary retention. The patient presented to [facility] with 2 days' history of not able to pass any urine and he was found to have 3 liters urine in his bladder with some extravasation of urine into the peritoneal cavity. The patient had a Black catheter placed and bladder was relieved. He was transferred to [facility] for evaluation by Urology Service. The patient was kept on IV ceftriaxone. Initially, he showed improvement in his condition; however, he had a temperature of up to 37.8 degrees Celsius adjusto writer operator on 10/20/2022, and at that time, [...] Date Transcribed: 10/23/2022 18:54:06 /GLORIA Receipt ID: [id number] Authenticated and Edited by Skip Jaffe MD On 11/02/22 2:23:13 AM at 0225 PATIENT NAME: MATHEW CASTILLO [facility] 2022-10-23 13:24:00 [facility] Nephrology Progress Note REPORT#:[id number] REPORT STATUS: Signed DATE:10/23/22 TIME: 1323 PATIENT: MATHEW CASTILLO UNIT #: [id number] ROOM/BED: 6630-1 : 59 AGE: 62 SEX: [...] urine in his bladder. CT abdomen from [place] showed that the patient has a very [...] urine in his bladder. CT abdomen from [place] showed that the patient has a very [...] patient's nurse, and . Toby Koehler 10/23/22 5138: Attestations Physician Attestation Reviewed findings plan: Patient examined Renal function improved and wnl, black to gravity, -2/2 post-obstrucitve uropathy, replace electrolytes as needed, emperic antibiotics per admitting team, agree with above A/P at 1741 at 2253 RPT #:[id number] END OF REPORT [facility] 2022-10-22 18:32:00 [facility] ([facility]) Infectious Dis. Progress Note REPORT#:[id number] REPORT STATUS: Signed DATE:10/22/22 TIME: 1831 PATIENT: MATHEW CASTILLO UNIT #: [id number] ROOM/BED: [place] [address] : 59 AGE: 62 SEX: M ATTEND: [...] low-grade temperature of the 37.6 degree C adjusto writer operator today. Remains afebrile at the present [...] IV antibiotics for now. at 0219 RPT #:[id number] END OF REPORT [facility] 2022-10-22 18:20:00 [id number] [place], [place] [address] PATIENT NAME: MATHEW CASTILLO ADMIT DATE: 10/16/22 ACCOUNT NO: [id number] ROOM NO: G.6630 AGE: 62 REPORT TYPE: [...] was initially admitted through emergency room at [facility] with acute urinary retention. The [...] for urology evaluation, he was transferred to [facility]. The patient was continued on IV ceftriaxone and had been doing fairly well until adjusto writer operator yesterday when he started to have [...] Dictated: 10/22/2022 18:20:30 Date Transcribed: 10/22/2022 19:52:40 /[facility] Receipt ID: [id number] Authenticated and Edited by Skip Jaffe MD On 11/02/22 2:22:51 AM at 0323 PATIENT NAME: MATHEW CASTILLO [facility] 2022-10-22 18:15:00 [facility] Internal Medicine Prog. Note REPORT#:[id number] REPORT STATUS: Signed DATE:10/22/22 TIME: 1814 PATIENT: MATHEW CASTILLO UNIT #: [id number] ROOM/BED: [place] [address] : 59 AGE: 62 SEX: M ATTEND: Salinas Alba MD ADM AUTHOR: Sofia Cheng NP * ALL edits or amendments must be made on the electronic/computer document * Subjective Chief complaint: Abdominal distention, hydronephrosis HPI: 62-year-old male with last medical history of, BPH, transferred from [place] for urology evaluation and treatment secondary to [...] of motion, normal sensory, normal motor function Neuro/ALGORITHM DEVELOPER: 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 Rupture of ureter Free Text DxA P Notes Free text DxA P notes: Assessment: 62-year-old male with last medical history of, BPH, transferred from [place] for urology evaluation and treatment secondary to [...] and supportive care at 0314 at 0842 [facility] #:[id number] END OF REPORT [facility] 2022-10-22 09:31:00 [facility] ([facility] Nephrology Progress Note REPORT#:[id number] REPORT STATUS: Signed DATE:10/22/22 TIME: 930 PATIENT: MATHEW CASTILLO UNIT #: [id number] ROOM/BED: [place] [address] : 59 AGE: 62 SEX: M ATTEND: [...] urine in his bladder. CT abdomen from [place] showed that the patient has a very [...] urine in his bladder. CT abdomen from [place] showed that the patient has a very [...] patient's nurse, and . Toby Koehler 10/22/22 2943: Attestations Physician Attestation Reviewed findings plan: Patient examined Renal function improved and wnl, black to gravity, -2/2 post-obstrucitve uropathy, replace electrolytes as needed, agree with above A/P at 1842 at 1308 RPT #:[id number] END OF REPORT [facility] 2022-10-21 20:48:00 [facility] Internal Medicine Prog. Note REPORT#:[id number] REPORT STATUS: Signed DATE:10/21/22 TIME: 2047 PATIENT: MATHEW CASTILLO UNIT #: [id number] ROOM/BED: [place] [address] : 59 AGE: 62 SEX: M ATTEND: Salinas Alba MD ADM AUTHOR: Sofia Cheng NP * ALL edits or amendments must be made on the electronic/computer document * Subjective Chief complaint: Abdominal distention, hydronephrosis HPI: 62-year-old male with last medical history of, BPH, transferred from [place] for urology evaluation and treatment secondary to [...] of motion, normal sensory, normal motor function Neuro/ALGORITHM DEVELOPER: 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 Rupture of ureter Free Text DxA P Notes Free text DxA P notes: Assessment: 62-year-old male with last medical history of, BPH, transferred from [place] for urology evaluation and treatment secondary to [...] and present at 0104 at 1009 RPT #:[id number] END OF REPORT [facility] 2022-10-21 19:01:00 [facility] ([facility]) Infectious Dis. Progress Note REPORT#:[id number] REPORT STATUS: Signed DATE:10/21/22 TIME: 190 PATIENT: MATHEW CASTILLO UNIT #: [id number] ROOM/BED: [place] [address] : 59 AGE: 62 SEX: M ATTEND: [...] Discussed with Skylar MENDIOLA. at 0242 RPT #:[id number] END OF REPORT [facility] 2022-10-21 11:23:00 [facility] ([facility]) Nephrology Progress Note REPORT#:[id number] REPORT STATUS: Signed DATE:10/21/22 TIME: 1122 PATIENT: MATHEW CASTILLO UNIT #: [id number] ROOM/BED: [place] [address] : 59 AGE: 62 SEX: M ATTEND: [...] urine in his bladder. CT abdomen from [place] showed that the patient has a very [...] urine in his bladder. CT abdomen from [place] showed that the patient has a very [...] above A/P at 1640 at 2054 RPT #:[id number] END OF REPORT [facility] 2022-10-21 03:59:00 [id number] [address] PATIENT NAME: MATHEW CASTILLO ADMIT DATE: 10/16/22 ACCOUNT NO: [id number] ROOM NO: G.6630 AGE: 62 REPORT TYPE: [...] who was initially admitted to hospital in [place] where he presented with acute urinary retention. [...] for urology evaluation, he was transferred to [facility] on 10/16/2022 for admission. On admission, the [...] temperature of up to 37.8 degrees Celsius adjusto writer operator today and after that he had been only having low-grade fever. Denies any nausea, vomiting or diarrhea. Denies any chest pain, cough, expectoration, or shortness of breath. He continues to have a Black catheter in place and admits to having suprapubic area soreness and pain, however, states that the pain and soreness he had at the time of presentation to the [facility] has resolved. 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 IMPRESSION: The patient with multiple comorbidities including history of schizophrenia and benign prostatic hypertrophy with worsening urinary difficulties for last over 2 years, was admitted through emergency room where he was transferred from [facility] because of need for [...] to 37.8 degrees Celsius last night and adjusto writer operator and had developed marked leukocytosis. Clinically, [...] Dictated By: Skip aJffe MD Date Dictated: 10/21/2022 03:59:46 Date Transcribed: 10/21/2022 04:40:04 DORADO/MAN Receipt ID: [id number] Authenticated by Skip Jaffe MD On 11/02/2022 02:22:37 AM at 0222 PATIENT NAME: MATHEW CASTILLO [facility] 2022-10-20 20:34:00 [facility]) Nephrology Progress Note REPORT#:[id number] REPORT STATUS: Signed DATE:10/20/22 TIME: 2033 PATIENT: MATHEW CASTILLO UNIT #: [id number] ROOM/BED: 6630-1 : 59 AGE: 62 SEX: [...] Coagulation INR (0.8 - 1.2) 1.1 PTT (Centre) (25.0 - 39.5 Seconds) 26.1 PT Patient/Control [...] - 32.0 %) 9.5 L 7.3 L [place] % (Auto) (4.8 - 9.0 %) 7.2 7.5 Eos % (Auto) (0.3 - 3.7 %) 2.6 2.2 Baso % (Auto) (0.0 - 2.0 %) 0.4 0.3 Neut # (Auto) (2.0 - 7.6 x10 3/uL) 13.75 H 15.38 H Lymph # (Auto) (1.0 - 3.8 x10 3/uL) 1.67 1.40 [place] # (Auto) (0.1 - 0.8 x10 3/uL) [...] urine in his bladder. CT abdomen from [place] showed that the patient has a very [...] urine in his bladder. CT abdomen from [place] showed that the patient has a very [...] Schizophrenia -Home medications resumed at 2150 RPT #:[id number] END OF REPORT [facility] 2022-10-20 18:11:00 [facility] Internal Medicine Prog. Note REPORT#:[id number] REPORT STATUS: Signed DATE:10/20/22 TIME: 1810 PATIENT: MATHEW CASTILLO UNIT #: [id number] ROOM/BED: [place] [address] : 59 AGE: 62 SEX: M ATTEND: Salinas Alba MD ADM AUTHOR: Sofia Cheng NP * ALL edits or amendments must be made on the electronic/computer document * Subjective Chief complaint: Abdominal distention, hydronephrosis HPI: 62-year-old male with last medical history of, BPH, transferred from [place] for urology evaluation and treatment secondary to [...] Coagulation INR (0.8 - 1.2) 1.1 PTT (Centre) (25.0 - 39.5 Seconds) 26.1 PT Patient/Control [...] - 32.0 %) 9.5 L 7.3 L [place] % (Auto) (4.8 - 9.0 %) 7.2 7.5 Eos % (Auto) (0.3 - 3.7 %) 2.6 2.2 Baso % (Auto) (0.0 - 2.0 %) 0.4 0.3 Neut # (Auto) (2.0 - 7.6 x10 3/uL) 13.75 H 15.38 H Lymph # (Auto) (1.0 - 3.8 x10 3/uL) 1.67 1.40 [place] # (Auto) (0.1 - 0.8 x10 3/uL) [...] 106 Report Impression - Status: SIGNED Entered: 10/20/20220 IMPRESSION: Mild interstitial pulmonary edema. No focal [...] of motion, normal sensory, normal motor function Neuro/ALGORITHM DEVELOPER: 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 Rupture of ureter Free Text DxA P Notes Free text DxA P notes: Assessment: 62-year-old male with last medical history of, BPH, transferred from [place] for urology evaluation and treatment secondary to [...] and supportive care at 0141 at 1009 [facility] #:[id number] END OF REPORT [facility] 2022-10-20 17:06:00 [facility] ([facility]) Infect Disease Consult Note REPORT#:[id number] REPORT STATUS: Signed DATE:10/20/22 TIME: 1706 PATIENT: MATHEW CASTILLO UNIT #: [id number] ROOM/BED: 6630-1 : 59 AGE: 62 SEX: [...] No Known Allergies (10/16/22) at 0239 RPT #:[id number] END OF REPORT [facility] 2022-10-20 01:07:00 [id number] [place] [address] PATIENT NAME: MATHEW CASTILLO ADMIT DATE: 10/16/22 ACCOUNT NO: [id number] ROOM NO: [facility] AGE: 62 REPORT TYPE: eELECTROCARDIOGRAM REPORT SEX: M ADMITTING PHYSICIAN:Salinas Alba MD ATTENDING PHYSICIAN:Salinas Alba MD Order: [id number] Test Reason : Sepsis Test Date/Time Stamp: [place] Oct 20 2022 01:07:09 Blood Pressure : [...] MD at 1247 PATIENT NAME: MATHEW CASTILLO [facility] 2022-10-19 22:43:00 [facility] Internal Medicine Prog. Note REPORT#:[id number] REPORT STATUS: Signed DATE:10/19/22 TIME: 2242 PATIENT: MATHEW CASTILLO UNIT #: [id number] ROOM/BED: [place] [address] : 59 AGE: 62 SEX: M ATTEND: Salinas Alba MD ADM AUTHOR: Sofia Cheng NP * ALL edits or amendments must be made on the electronic/computer document * Subjective Chief complaint: Abdominal distention, hydronephrosis HPI: 62-year-old male with last medical history of, BPH, transferred from [place] for urology evaluation and treatment secondary to [...] Magnesium (1.80 - 2.40 mg/dL) 1.48 L 10/180 8240 7370 Chemistry POC Glucose (70 - 110 MG/DL) [...] - 32.0 %) 15.7 15.6 10.6 L [place] % (Auto) (4.8 - 9.0 %) 8.5 10.1 H 12.8 H Eos % (Auto) (0.3 - 3.7 %) 6.0 H 7.5 H 2.7 Baso % (Auto) (0.0 - 2.0 %) 0.7 0.7 0.4 Neut # (Auto) (2.0 - 7.6 x10 3/uL) 6.09 5.53 8.23 H Lymph # (Auto) (1.0 - 3.8 x10 3/uL) 1.48 1.39 1.22 [place] # (Auto) (0.1 - 0.8 x10 3/uL) [...] pH (5.0 - 7.0) 5.0 Ur Specific Spencer (1.005 - 1.030) 1.015 Urine Protein (NEGATIVE) [...] - COMP NASAL Chemistry: 10/19 1615 1135 0793 9347 Chemistry Sodium (134 - 147 mEq/L) 139 [...] of motion, normal sensory, normal motor function Neuro/ALGORITHM DEVELOPER: 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 Rupture of ureter Free Text DxA P Notes Free text DxA P notes: Assessment: 62-year-old male with last medical history of, BPH, transferred from [place] for urology evaluation and treatment secondary to [...] and present care at 0229 at 1514 [facility] #:[id number] END OF REPORT [facility] 2022-10-19 20:14:00 [facility] ([facility]) Nephrology Progress Note REPORT#:[id number] REPORT STATUS: Signed DATE:10/19/22 TIME: 2013 PATIENT: MATHEW CASTILLO UNIT #: [id number] ROOM/BED: 6630-1 : 59 AGE: 62 SEX: [...] % (Auto) (14.0 - 32.0 %) 15.7 [place] % (Auto) (4.8 - 9.0 %) 8.5 Eos % (Auto) (0.3 - 3.7 %) 6.0 H Baso % (Auto) (0.0 - 2.0 %) 0.7 Neut # (Auto) (2.0 - 7.6 x10 3/uL) 6.09 Lymph # (Auto) (1.0 - 3.8 x10 3/uL) 1.48 [place] # (Auto) (0.1 - 0.8 x10 3/uL) [...] pH (5.0 - 7.0) 5.0 Ur Specific Spencer (1.005 - 1.030) 1.015 Urine Protein (NEGATIVE) [...] urine in his bladder. CT abdomen from [place] showed that the patient has a very [...] urine in his bladder. CT abdomen from [place] showed that the patient has a very [...] Schizophrenia -Home medications resumed at 2148 RPT #:[id number] END OF REPORT [facility] 2022-10-18 20:26:00 [facility] Internal Medicine Prog. Note REPORT#:[id number] REPORT STATUS: Signed DATE:10/18/22 TIME: 2025 PATIENT: MATHEW CASTILLO UNIT #: [id number] ROOM/BED: G.6630-1 : 59 AGE: 62 SEX: M ATTEND: Salinas Alba MD ADM AUTHOR: Sofia Cheng NP * ALL edits or amendments must be made on the electronic/computer document * Subjective Chief complaint: Abdominal distention, hydronephrosis HPI: 62-year-old male with last medical history of, BPH, transferred from [place] for urology evaluation and treatment secondary to [...] % (Auto) (14.0 - 32.0 %) 15.6 [place] % (Auto) (4.8 - 9.0 %) 10.1 H Eos % (Auto) (0.3 - 3.7 %) 7.5 H Baso % (Auto) (0.0 - 2.0 %) 0.7 Neut # (Auto) (2.0 - 7.6 x10 3/uL) 5.53 Lymph # (Auto) (1.0 - 3.8 x10 3/uL) 1.39 [place] # (Auto) (0.1 - 0.8 x10 3/uL) [...] of motion, normal sensory, normal motor function Neuro/ALGORITHM DEVELOPER: 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 Rupture of ureter Free Text DxA P Notes Free text DxA P notes: Assessment: 62-year-old male with last medical history of, BPH, transferred from [place] for urology evaluation and treatment secondary to [...] and supportive care at 2012 at 1301 [facility] #:[id number] END OF REPORT [facility] 2022-10-18 17:48:00 [facility] ([facility] Nephrology Progress Note REPORT#:[id number] REPORT STATUS: Signed DATE:10/18/22 TIME: 1748 PATIENT: MATHEW CASTILLO UNIT #: [id number] ROOM/BED: 6630-1 : 59 AGE: 62 SEX: [...] 10/18 10/18 10/18 10/18 10/17 1118 0740 0550 0593 2012 Chemistry Sodium (134 - 147 mEq/L) [...] % (Auto) (14.0 - 32.0 %) 15.6 [place] % (Auto) (4.8 - 9.0 %) 10.1 H Eos % (Auto) (0.3 - 3.7 %) 7.5 H Baso % (Auto) (0.0 - 2.0 %) 0.7 Neut # (Auto) (2.0 - 7.6 x10 3/uL) 5.53 Lymph # (Auto) (1.0 - 3.8 x10 3/uL) 1.39 [place] # (Auto) (0.1 - 0.8 x10 3/uL) [...] urine in his bladder. CT abdomen from [place] showed that the patient has a very [...] post-obstructive diuresis and electrolyte imbalance Urinary Retention/BPH -Lback to gravity, Urology following, on Tamsulosin -Per Urology note: Reportedly the patient had 3L of urine in his bladder. CT abdomen from [place] showed that the patient has a very [...] K and magnesium supplementation. at 193 RPT #:[id number] END OF REPORT [facility] 2022-10-17 22:43:00 [facility] Internal Medicine Prog. Note REPORT#:[id number] REPORT STATUS: Signed DATE:10/17/22 TIME: 2242 PATIENT: MATHEW CASTILLO UNIT #: [id number] ROOM/BED: [place] [address] : 59 AGE: 62 SEX: M ATTEND: Salinas Alba MD ADM AUTHOR: Sofia Cheng NP * ALL edits or amendments must be made on the electronic/computer document * Subjective Chief complaint: Abdominal distention, hydronephrosis HPI: 62-year-old male with last medical history of, BPH, transferred from [place] for urology evaluation and treatment secondary to [...] (Auto) (14.0 - 32.0 %) 10.6 L [place] % (Auto) (4.8 - 9.0 %) 12.8 H Eos % (Auto) (0.3 - 3.7 %) 2.7 Baso % (Auto) (0.0 - 2.0 %) 0.4 Neut # (Auto) (2.0 - 7.6 x10 3/uL) 8.23 H Lymph # (Auto) (1.0 - 3.8 x10 3/uL) 1.22 [place] # (Auto) (0.1 - 0.8 x10 3/uL) [...] of motion, normal sensory, normal motor function Neuro/ALGORITHM DEVELOPER: 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 Rupture of ureter Free Text DxA P Notes Free text DxA P notes: Assessment: 62-year-old male with last medical history of, BPH, transferred from [place] for urology evaluation and treatment secondary to [...] supportive care at 0210 at 1300 RPT #:[id number] END OF REPORT [facility] 2022-10-17 17:41:00 [facility] Urology Progress Note REPORT#:[id number] REPORT STATUS: Signed DATE:10/17/22 TIME: 1741 PATIENT: MATHEW CASTILLO UNIT #: [id number] ROOM/BED: [address] : [address] AGE: 62 SEX: M [...] (Auto) (14.0 - 32.0 %) 10.6 L [place] % (Auto) (4.8 - 9.0 %) 12.8 H Eos % (Auto) (0.3 - 3.7 %) 2.7 Baso % (Auto) (0.0 - 2.0 %) 0.4 Neut # (Auto) (2.0 - 7.6 x10 3/uL) 8.23 H Lymph # (Auto) (1.0 - 3.8 x10 3/uL) 1.22 [place] # (Auto) (0.1 - 0.8 x10 3/uL) [...] cystoscopy. Home with black at 1742 RPT #:[id number] END OF REPORT [facility] 2022-10-17 13:46:00 [facility] Nephrology Progress Note REPORT#:[id number] REPORT STATUS: Signed DATE:10/17/22 TIME: 1346 PATIENT: MATHEW CASTILLO UNIT #: [id number] ROOM/BED: [place] [address] : 59 AGE: 62 SEX: M ATTEND: [...] (Auto) (14.0 - 32.0 %) 10.6 L [place] % (Auto) (4.8 - 9.0 %) 12.8 H Eos % (Auto) (0.3 - 3.7 %) 2.7 Baso % (Auto) (0.0 - 2.0 %) 0.4 Neut # (Auto) (2.0 - 7.6 x10 3/uL) 8.23 H Lymph # (Auto) (1.0 - 3.8 x10 3/uL) 1.22 [place] # (Auto) (0.1 - 0.8 x10 3/uL) [...] urine in his bladder. CT abdomen from [place] showed that the patient has a very [...] urine in his bladder. CT abdomen from [place] showed that the patient has a very [...] above A/P at 1759 at 2234 RPT #:[id number] END OF REPORT [facility] 2022-10-16 15:13:00 [place] [address] PATIENT NAME: MATHEW CASTILLO ADMIT DATE: 10/16/22 ACCOUNT NO: [id number] ROOM NO: [facility] AGE: 62 REPORT TYPE: CONSULTATION REPORT SEX: M ADMITTING PHYSICIAN:Salinas Alba MD ATTENDING PHYSICIAN:Salinas Alba MD CONSULTATION DATE:10/16/2022 REASON FOR CONSULTATION: Hydronephrosis, urinary retention. HISTORY OF PRESENT ILLNESS: This is a 62-year-old male with a history of schizophrenia who was sent in from [place]. He had reportedly almost 3 liters of [...] scan of the abdomen and pelvis from [place]. The patient has a very large distended [...] Date Transcribed: 10/16/2022 16:06:29 /JENNI Receipt ID: [id number] Authenticated and Edited by Dave Jones MD On 11/12/22 1:37:06 PM at 0138 PATIENT NAME: MATHEW CASTILLO [facility] 2022-10-16 12:39:00 [facility] ([facility]) Nephrology Consultation Note REPORT#:[id number] REPORT STATUS: Signed DATE:10/16/22 TIME: 1239 PATIENT: MATHEW CASTILLO UNIT #: [id number] ROOM/BED: [place] [address] : 59 AGE: 62 SEX: M ATTEND: [...] Friday who took him to ER in [place]. He had CT abdomen which revealed b/l [...] (COGENTIN) PO 11/15 1329 1446 Cardiovascular Drugs Sig/Mrak Start time Last Medication Dose Route [...] (Auto) (14.0 - 32.0 %) 3.8 L [place] % (Auto) (4.8 - 9.0 %) 13.6 H Eos % (Auto) (0.3 - 3.7 %) 0.4 Baso % (Auto) (0.0 - 2.0 %) 0.2 Neut # (Auto) (2.0 - 7.6 x10 3/uL) 8.96 H Lymph # (Auto) (1.0 - 3.8 x10 3/uL) 0.42 L [place] # (Auto) (0.1 - 0.8 x10 3/uL) [...] urine in his bladder. CT abdomen from [place] showed that the patient has a very [...] urine in his bladder. CT abdomen from [place] showed that the patient has a very [...] Friday who took him to ER in [place]. He had CT abdomen which revealed b/l hydronephrosis and concern for possible ureteral rupture. He was transferred to [facility] [place] for Urology evaluation. Initial VS at the [...] Agree with above A/P at 1902 at 2023 RPT #:[id number] END OF REPORT [facility] 2022-10-16 11:15:00 [facility] ([facility]) History Physical - Adult REPORT#:[id number] REPORT STATUS: Signed DATE:10/16/22 TIME: 1115 PATIENT: MATHEW CASTILLO UNIT #: [id number] ROOM/BED: [place] [address] : 59 AGE: 62 SEX: M ATTEND: Salinas Alba MD ADM AUTHOR: Sofia Cheng NP * ALL edits or amendments must be made on the electronic/computer document * History of Present Illness HPI Chief complaint: Abdominal distention, hydronephrosis HPI: 62-year-old male with last medical history of, BPH, transferred from [place] for urology evaluation and treatment secondary to [...] of motion, normal sensory, normal motor function Neuro/ALGORITHM DEVELOPER: alert, oriented X 3 Skin: dry, intact, [...] (Auto) (14.0 - 32.0 %) 3.8 L [place] % (Auto) (4.8 - 9.0 %) 13.6 H Eos % (Auto) (0.3 - 3.7 %) 0.4 Baso % (Auto) (0.0 - 2.0 %) 0.2 Neut # (Auto) (2.0 - 7.6 x10 3/uL) 8.96 H Lymph # (Auto) (1.0 - 3.8 x10 3/uL) 0.42 L [place] # (Auto) (0.1 - 0.8 x10 3/uL) [...] last medical history of, BPH, transferred from [place] for urology evaluation and treatment secondary to [...] clinical course at 0232 at 1204 RPT #:[id number] END OF REPORT [facility] 2022-10-16 03:54:00 [facility] ([facility]) EMERGENCY PROVIDER REPORT REPORT#:[id number] REPORT STATUS: Signed DATE:10/16/22 TIME: 0354 PATIENT: MATHEW CASTILLO UNIT #: [id number] ROOM/BED: [place]- AGE: 62 SEX: M PCP [...] (Auto) (14.0 - 32.0 %) 3.8 L [place] % (Auto) (4.8 - 9.0 %) 13.6 H Eos % (Auto) (0.3 - 3.7 %) 0.4 Baso % (Auto) (0.0 - 2.0 %) 0.2 Neut # (Auto) (2.0 - 7.6 x10 3/uL) 8.96 H Lymph # (Auto) (1.0 - 3.8 x10 3/uL) 0.42 L [place] # (Auto) (0.1 - 0.8 x10 3/uL) [...] Consultation Consultation Referral/Consult Name Dave Jones MD Territory Development Manager Called Urology Territory Development Manager Discussed with application security consultant Requested Call Time 0345 Requested [...] this chart for administrative purposes only. at 6307 RPT #:[id number] END OF REPORT [facility]
--- NOTE | 2024-08-08 18:03 | EDPHYS ---
Physician Documentation [facility] Name: Mathew Porter Age: 63 yrs Sex: Male : 1960 Arrival Date: 08/08/2024 Time: 17:19 Bed 13 Private MD: ED Physician Karsten Coles HPI: 08/08 17:35 This 63 yrs old Male presents to ER via Ambulatory with complaints of Problem With cp Urinary Catheter. 17:35 The patient presents with a Johns catheter problem, patient requests exchange of cp catheter. 17:35 Associated signs and symptoms: Pertinent negatives: abdominal pain, diarrhea, fever, cp hematuria, vomiting. Historical: - Allergies: 17:37 NKA; ss - PMHx: 17:37 Schizophrenia; ss - PSHx: 17:37 Urolift; ss - Immunization history:: Adult Immunizations unknown. - Infectious Disease History:: Denies. - Social history:: Smoking status: Patient reports the use of cigarette tobacco products, smokes one pack cigarettes per day. cigars. ROS: 17:40 Constitutional: history per hpi cp Exam: 17:42 Constitutional: The patient appears in no acute distress, alert, awake, comfortable, cp non-toxic, well developed, well nourished, 17:42 Head/Face: Normocephalic, atraumatic. cp 17:42 Chest/axilla: Inspection: normal, 17:42 Cardiovascular: Rate: normal, 17:42 Respiratory: the patient does not display signs of respiratory distress, Respirations: normal, no use of accessory muscles, no retractions, labored breathing, is not present, 17:42 Abdomen/GI: Exam negative for discomfort, distension, guarding, Inspection: abdomen appears normal, 17:42 Back: pain, is absent, 17:42 Neuro: Orientation: is normal, Mentation: is normal, Gait: is steady, at a normal pace, without difficulty, Vital Signs: 17:35 BP 161 / 85; Pulse 68; Resp 20; Temp 98.7(TE); Pulse Ox 95% on R/A; Height 5 ft. 6 in. ss ; Pain 0/10; 18:10 BP 158 / 84; Pulse 78; Resp 20; Temp 98; Pulse Ox 100% on R/A; kj2 18:33 BP 150 / 108; Pulse 63; Resp 17; Temp 98.4; Pulse Ox 99% ; am7 17:35 Pain Scale: Adult ss MDM: 17:37 Medical Screening Exam initiated [place] 17:40 Differential diagnosis: UTI, urinary retention, Johns catheter problem, prostatitis, cp urethritis. 18:01 Data reviewed: vital signs, nurses notes, and as a result, I will discharge patient. cp 18:01 Counseling: I had a detailed discussion with the patient and/or guardian regarding the cp historical points, exam findings, and any diagnostic results supporting the discharge/admit diagnosis, the need for outpatient follow up, for definitive care, a urologist, to return to the emergency department if symptoms worsen or persist or if there are any questions or concerns that arise at home. Response to treatment: the patient's symptoms have markedly improved after treatment, and as a result, I will discharge patient. 08/08 17:32 Order name: Johns: please replace; Complete Time: 18:32 cp 08/08 17:32 Order name: Vital Signs: to include temp; Complete Time: 18:32 cp Administered Medications: No medications were administered Disposition: 08/09 06:20 Co-signature as Attending Physician, Karsten Coles MD I agree with the assessment and [place] plan of care. Disposition Summary: 08/08/24 18:02 Discharge Ordered Notes: Location: Home cp Problem: an ongoing problem cp Symptoms: have improved cp Condition: Stable cp Diagnosis - Encounter for replacement of urinary johns catheter cp Followup: cp - With: Private Physician - When: As needed - Reason: Worsening of condition Discharge Instructions: - Discharge Summary Sheet cp - Indwelling Urinary Catheter Care, Adult cp Forms: - Medication Reconciliation Form cp - Antibiotic Education cp - Prescription Opioid Use cp - Patient Portal Instructions cp - Leadership Thank You Letter cp Signatures: Karsten Coles MD MD cha Blanchard, Shelby RN RN ss Karsten Whitehead PA PA cp Jordan, Krystal, RN RN kj2
--- NOTE | 2024-08-08 18:03 | ER ---
Nurse's Notes [facility] Name: Mathew Porter Age: 63 yrs Sex: Male : 1960 Arrival Date: 08/08/2024 Time: 17:19 Bed 13 Private MD: Diagnosis: Encounter for replacement of urinary johns catheter Presentation: 08/08 17:35 Chief complaint: Patient states: Here to have johns replaced. Pt states, "I come here ss once a month to get my johns changed out.". Coronavirus screen: Client denies travel out of the [place] in the last 14 days. Ebola Screen: Patient denies exposure to infectious person. Patient denies travel to an Ebola-affected area in the 21 days before illness onset. Initial Sepsis Screen: Does the patient meet any 2 criteria? No. Patient's initial sepsis screen is negative. Does the patient have a suspected source of infection? No. Patient's initial sepsis screen is negative. Risk Assessment: Do you want to hurt yourself or someone else? Patient reports no desire to harm self or others. Onset of symptoms is unknown. 17:35 Method Of Arrival: Ambulatory ss 17:35 Acuity: JAMILA 5 ss Historical: - Allergies: 17:37 NKA; ss - PMHx: 17:37 Schizophrenia; ss - PSHx: 17:37 Urolift; ss - Immunization history:: Adult Immunizations unknown. - Infectious Disease History:: Denies. - Social history:: Smoking status: Patient reports the use of cigarette tobacco products, smokes one pack cigarettes per day. cigars. Screenin:11 [facility] ED Fall Risk Assessment (Adult) History of falling in the last 3 months, kj2 including since admission No falls in past 3 months (0 pts) Confusion or Disorientation No (0 pts) Intoxicated or Sedated No (0 pts) Impaired Gait No (0 pts) Mobility Assist Device Used No (0 pt) Altered Elimination No (0 pt) Score/Fall Risk Level 0 - 2 = Low Risk Maintained a safe environment, Hourly rounding (assess needs \\T\\ fall precautionary measures) done. Abuse screen: Denies threats or abuse. Denies injuries from another. Nutritional screening: No deficits noted. Tuberculosis screening: No symptoms or risk factors identified. Assessment: 17:45 General: Appears in no apparent distress. Behavior is calm, cooperative. Pain: Denies kj2 pain. Neuro: Level of Consciousness is awake, alert, obeys commands, Oriented to person, place, time, situation. Cardiovascular: Patient's skin is warm and dry. Respiratory: Airway is patent Respiratory effort is even, unlabored. GI: No signs and/or symptoms were reported involving the gastrointestinal system. : Reports here to have johns catheter change. Vital Signs: 17:35 BP 161 / 85; Pulse 68; Resp 20; Temp 98.7(TE); Pulse Ox 95% on R/A; Height 5 ft. 6 in. ss ; Pain 0/10; 18:10 BP 158 / 84; Pulse 78; Resp 20; Temp 98; Pulse Ox 100% on R/A; kj2 18:33 BP 150 / 108; Pulse 63; Resp 17; Temp 98.4; Pulse Ox 99% ; am7 17:35 Pain Scale: Adult ss ED Course: 17:22 Patient arrived in ED. al6 17:28 Karsten Whitehead PA is PHCP. cp 17:28 Karsten Coles MD is Attending Physician. cp 17:36 Triage completed. ss 17:37 Arm band placed on right wrist. ss 18:07 Inge Stephen RN is Primary Nurse. kj2 18:12 Patient has correct armband on for positive identification. Provided Education on: call kj2 light. 18:13 No provider procedures requiring assistance completed. Patient did not have IV access kj2 during this emergency room visit. 18:34 Johns cath removed intact, balloon deflated. am7 18:38 Johns cath inserted, using sterile technique, 16 Fr., by vt, balloon inflated, to am7 gravity drainage. Administered Medications: No medications were administered Medication: 18:12 VIS not applicable for this client. kj2 Outcome: 18:02 Discharge ordered by MD. cp 18:13 Discharged to home ambulatory, kj2 18:13 Condition: stable 18:13 Discharge instructions given to patient, Instructed on discharge instructions, follow up and referral plans. Demonstrated understanding of instructions, follow-up care, 18:51 Patient left the ED. ll1 Signatures: Judy Rutledge RN RN Karsten Whitehead PA PA Brandt Cummins RN RN ll1 Inge Stephen RN RN kj2 Linda Mauricio am7 Audrey Gee6 Corrections: (The following items were deleted from the chart) 18:38 18:34 Johns cath balloon deflated, am7 am7
[2024-08-08 19:02] VITALS: BP 150/108; TEMP 98.4; O2SAT 99
== END 2024-08-08 18:51 | disposition home or self-care (01) ==
LOC: ER 17:19
DX: Z46.6 Encounter for fitting and adjustment of urinary device (principal); F17.210 Nicotine dependence, cigarettes, uncomplicated
CPT/HCPCS: 51702; 99284

== ENCOUNTER 2024-08-31 15:01 | Emergency (ER) | payer OTHER ==
--- OUTSIDE RECORDS SUMMARY | 2024-08-31 15:09 | XMS REPORT | Continuity of Care Document ---
Author Name Unknown Address [address] [facility] [place] [place] [address] [facility] Address [address] [facility] [place] [place] [address] Care Team Providers Care Manager Beauty Name Role Phone Dave Jones Attending Clinician [...] s DA Active U 10-16 00:00: 00 [facility] Encounters Start Date/Time End Date/Time Encounter Type Admission Type Attending Clinicians Care Facility Care Department Encounter ID Source 2024-09-24 15:00:00 2024-09-24 15:00:00 Outpatient Dave Jones [facility] DAYS [id number] 54 [facility] 2023-01-21 06:38:00 2023-01-22 20:00:00 Inpatient EM [place] [facility]01 [id number] 65 [facility] 2023-01-06 15:12:00 2023-01-11 21:08:00 Inpatient EM [place] [facility].01 [id number] 41 [facility] 2022-10-16 05:03:00 2022-10-26 19:41:00 Inpatient EM [place] [facility] MEDI.01 [id number] 28 [facility] Results Test Description Test Time Test Comments Results Resul t Comments Source - CT ABD PELVIS W/CONT 2023-01-05 8 13:00:00 [facility] 1960 Sex: M Name: MATHEW CASTILLO [facility] : 1960 Age/S: 62 / M [address] [place] [address] Bl Unit #: [id number] Loc: [place] [address] Phys: Sofia Cheng [employer] Acct: [id number] Dis Date: Status: ADM IN PHONE #: [phone] Exam Date: 01/22/2023 1231 FAX #: [phone] Reason: ABD PAIN EXAMS: CPT CODE: [id number] CT ABD PELVIS W/CONT 55423 EXAM: CT abdomen and pelvis with contrast [...] 1 Signed Report (CONTINUED) Name: MATHEW CASTILLO [facility] : 1960 Age/S: 62 / M [address] [place], [place] [address]vd Unit #: [id number] Loc: [place] [address] Phys: Sofia Cheng [employer] Acct: [id number] Dis Date: Status: ADM IN PHONE #: [phone] Exam Date: 01/22/2023 1231 FAX #: [phone] Reason: ABD PAIN EXAMS: CPT CODE: [id number] CT ABD PELVIS W/CONT 90791 (Continued) abdominal aortic aneurysm. Pelvic organs/bladder: Moderate [...] (1300) t.SDR.BC0 Orig Print D/T: S: 01/22/2023 (5321) PAGE 2 Signed Report [id number] 07:46:00* Test Item Value Reference Range Interpretation Comme nts PHOSPHOROUS (test code = PHOS) 2.4 MG/DL 2.5-4.9 L [id number] 07:46:00* Test Item Value Reference Range Interpretation Comme nts MAGNESIUM (test code = MAG) 1.69 mg/dL 1.6-2.6 N NOTE: NEW NORMAL RANGE CBC W/AUTO [id number] 07:05:00* Test Item Value Reference Range Interpretation [...] 0.00 x10 3/uL 0.0-0.1 N BASIC METABOLIC [id number] 06:08:00* Test Item Value Reference Range Interpretation [...] CA) 8.2 mg/dL 8.0-10.5 N CBC W/AUTO [id number] 05:57:00* Test Item Value Reference Range Interpretation [...] c ode = MDIFF) NO CBC W/AUTO [id number] 08:15:00* Test Item Value Reference Range Interpretation [...] 0.00 x10 3/uL 0.0-0.1 N BASIC METABOLIC [id number] 07:28:00* Test Item Value Reference Range Interpretation [...] CA) 8.6 mg/dL 8.0-10.5 N BASIC METABOLIC [id number] 07:46:00* Test Item Value Reference Range Interpretation [...] CA) 8.7 mg/dL 8.0-10.5 N CBC W/AUTO [id number] 07:34:00* Test Item Value Reference Range Interpretation [...] 0.00 x10 3/uL 0.0-0.1 N CBC W/AUTO [id number] 08:43:00* Test Item Value Reference Range Interpretation [...] c ode = MDIFF) NO BASIC METABOLIC [id number] 07:14:00* Test Item Value Reference Range Interpretation [...] CA) 7.8 mg/dL 8.0-10.5 L CBC W/AUTO [id number] 08:58:00* Test Item Value Reference Range Interpretation [...] c ode = MDIFF) NO BASIC METABOLIC [id number] 08:27:00* Test Item Value Reference Range Interpretation [...] HGBA1C%) 5.1 %A1C 4.8-6.0 N CBC W/AUTO [id number] 08:05:00* Test Item Value Reference Range Interpretation [...] (test code = MDIFF) NO BASIC METABOLIC [id number] 07:46:00* Test Item Value Reference Range Interpretation [...] = LDL) 104.0 mg/dL 0-100 H <100 SBSCLPF17 0-129 NEAR OPTIMAL/ABOVE [id number] SPJFFXCVGL920-626 HIGH>XE=231 VERY HIGH*Guidelines provided by the National Cholesterol EducationProgram Adult Treatment Panel III [id number] 07:46:00* Test Item Value Reference Range Interpretation Comme nts PHOSPHOROUS (test code = PHOS) 3.4 MG/DL 2.5-4.9 N [id number] 07:46:00* Test Item Value Reference Range Interpretation Comme nts MAGNESIUM (test code = MAG) 1.69 mg/dL 1.6-2.6 N NOTE: NEW NORMAL RANGE TSH REFLEX TO [id number] 07:46:00* Test Item Value Reference Range Interpretation Comme nts TSH REFLEX TO FT4 (test code = TSHREFLEX) 2.37 IU/mL 0.42-5.47 N LACTIC [id number] 05:48:00* Test Item Value Reference Range Interpretation Comme nts LACTIC ACID (test code = LACT) 1.1 mmol/L 0.4-1.9 N LACTIC ACID [id number] 02:38:00* Test Item Value Reference Range Interpretation Comme nts LACTIC ACID REPEAT (test cod e = LACTR) 0.9 mmol/l 0.4-1.9 N CALLED SEVERINO @01:18 TO REMIND WE NEEDED REPEATLACTIC [id number] 22:36:00* Test Item Value Reference Range Interpretation Comme nts LACTIC ACID (test code = LACT) 2.9 mmol/L 0.4-1.9 H UA RFLX MICR CULT IF [id number] 22:35:00* Test Item Value Reference Range Interpretation [...] Less than 14 days- CT ABD PELVIS [id number] 22:24:00 [facility] 1960 Sex: M Name: MATHEW CASTILLO [facility] : 1960 Age/S: 62 / M [address] [place] [address] Unit #: [id number] Loc: [facility] [place] [address] Phys: Vee Horton [facility] Acct: [id number] Dis Date: Status: REG ER PHONE #: [phone] Exam Date: 01/04/2023 0940 FAX #: [phone] Reason: GROSS HEMATURIA EXAMS: CPT CODE: [id number] CT ABD PELVIS W/CONT 32794 H 20 TIME OF STUDY: 01/04/2023 7:55 [...] 1 Signed Report (CONTINUED) Name: MATHEW CASTILLO [facility] : 1960 Age/S: 62 / M [address] [place] [address] Blvd Unit #: [id number] Loc: [place] [address] Phys: Vee Horton Acct: [id number] Dis Date: Status: REG ER PHONE #: [phone] Exam Date: 01/04/2023 09 FAX #: [phone] Reason: GROSS HEMATURIA EXAMS: CPT CODE: [id number] CT ABD PELVIS W /CONT 68899 (Continued) at 2224 Reported and signed by: Zia Magaña M.D. CC: Lakhwinder Guillermo MD; Vee Horton; Javier Carroll Technologist:RT Maryam(R); Lesvia Humphries CTDI: DLP: Trnscb Date/Time: 01/04/2023 (2223) [email or web address] Orig Print D/T: S: 01/04/2023 (2226) PAGE 2 Signed ReportCOMPREHENSIVE METABOLIC [id number] 21:07:00* Test Item Value Reference Range Interpretation [...] ALKP) 60 IUnit/L 20-125 N CBC W/AUTO [id number] 20:38:00* Test Item Value Reference Range Interpretation [...] (test code = MDIFF) NO BASIC METABOLIC [id number] 08:30:00* Test Item Value Reference Range Interpretation [...] reported result: 4.9 mg/dLEdited by: KRISTEN on 10/31/22:93844910/31/22 0829: CA previously reported as: 4.9 *L mg/dL Critical [place] [address]/16/22 Nurse read back result and tech confirmed it's correct? Y GLUCOSE [id number] 17:27:00* Test Item Value Reference Range Interpretation Comme nts GLUCOSE BEDSIDE (test code = GLUBED) 109 MG/DL 70-110 N Performed by cer tified shell machine operator at [facility] GLUCOSE [id number] 12:34:00* Test Item Value Reference Range Interpretation Comme nts GLUCOSE BEDSIDE (test code = GLUBED) 95 MG/DL 70-110 N Performed by cer tified shell machine operator at [facility] GLUCOSE [id number] 08:49:00* Test Item Value Reference Range Interpretation Comme nts GLUCOSE BEDSIDE (test code = GLUBED) 117 MG/DL 70-110 H Performed by cer tified shell machine operator at [facility] BASIC METABOLIC [id number] 07:57:00* Test Item Value Reference Range Interpretation [...] = CA) 8.1 mg/dL 8.0-10.5 N GLUCOSE [id number] 17:07:00* Test Item Value Reference Range Interpretation Comme nts GLUCOSE BEDSIDE (test code = GLUBED) 127 MG/DL 70-110 H Performed by cer tified shell machine operator at [facility] GLUCOSE [id number] 12:26:00* Test Item Value Reference Range Interpretation Comme nts GLUCOSE BEDSIDE (test code = GLUBED) 123 MG/DL 70-110 H Performed by cer tified shell machine operator at [facility] GLUCOSE [id number] 07:59:00* Test Item Value Reference Range Interpretation Comme nts GLUCOSE BEDSIDE (test code = GLUBED) 92 MG/DL 70-110 N Performed by cer tified shell machine operator at [facility] BASIC METABOLIC [id number] 07:38:00* Test Item Value Reference Range Interpretation [...] CA) 7.8 mg/dL 8.0-10.5 L CBC W/AUTO [id number] 07:27:00* Test Item Value Reference Range Interpretation [...] REQUIRED (test code = MDIFF) NO GLUCOSE [id number] 21:25:00* Test Item Value Reference Range Interpretation Comme nts GLUCOSE BEDSIDE (test code = GLUBED) 154 MG/DL 70-110 H Performed by cer tified shell machine operator at [facility] GLUCOSE [id number] 17:43:00* Test Item Value Reference Range Interpretation Comme nts GLUCOSE BEDSIDE (test code = GLUBED) 73 MG/DL 70-110 N Performed by cer tified shell machine operator at [facility] GLUCOSE [id number] 10:08:00* Test Item Value Reference Range Interpretation Comme nts GLUCOSE BEDSIDE (test code = GLUBED) 87 MG/DL 70-110 N Performed by cer tified shell machine operator at [facility] GLUCOSE [id number] 20:12:00* Test Item Value Reference Range Interpretation Comme nts GLUCOSE BEDSIDE (test code = GLUBED) 139 MG/DL 70-110 H Performed by cer tified shell machine operator at [facility] GLUCOSE [id number] 17:32:00* Test Item Value Reference Range Interpretation Comme nts GLUCOSE BEDSIDE (test code = GLUBED) 79 MG/DL 70-110 N Performed by cer tified shell machine operator at [facility] GLUCOSE [id number] 12:14:00* Test Item Value Reference Range Interpretation Comme nts GLUCOSE BEDSIDE (test code = GLUBED) 98 MG/DL 70-110 N Performed by cer tified shell machine operator at [facility] GLUCOSE [id number] 08:36:00* Test Item Value Reference Range Interpretation Comme nts GLUCOSE BEDSIDE (test code = GLUBED) 92 MG/DL 70-110 N Performed by cer tified shell machine operator at [facility] BASIC METABOLIC [id number] 07:50:00* Test Item Value Reference Range Interpretation [...] code = CA) 7.6 mg/dL 8.0-10.5 L [id number] 07:50:00* Test Item Value Reference Range Interpretation Comme nts MAGNESIUM (test code = MAG) 1.53 mg/dL 1.80-2.40 L - CTA CHEST FOR [id number] 00:00:00 [facility] 1960 Sex: M Name: MATHEW CASTILLO [facility] : 1960 Age/S: 62 / M [address] [place] [address] Unit #: [id number] Loc: [place] [address] Phys: Sofia Cheng [employer]AC[employer] POL[employer]ER Acct: [id number] Dis Date: Status: ADM IN PHONE #: [phone] Exam Date: 10/23/2022 1724 FAX #: [phone] Reason: ELEVATED D DIMER EXAMS: CPT CODE: [id number] [place] [address] PROCEDURE INFORMATION: Exam: CTA Chest With Contrast [...] 1 Signed Report (CONTINUED) Name: MATHEW CASTILLO [facility] : 1960 Age/S: 62 / M [address] [place] [address] Unit #: [id number] Loc: [id number] Phys: Sofia Cheng [employer]ACQU[employer] POL[employer]ER Acct: [id number] Dis Date: Status: ADM IN PHONE #: [phone] Exam Date: 10/23/2022 1724 FAX #: [phone] Reason: ELEVATED D DIMER EXAMS: CPT CODE: [id number] [place] [address] (Continued) flexure compatible with colitis incompletely evaluated. 3. Small right pleural effusion with right lower lobe atelectasis. 4. Left upper lobe bronchiectasis. 5. Minimalanterior pericardial effusion. 6. Type 4 hiatal hernia measures 7.6 cm X 6.5 cm. 7. Gastric fundalwall thickening, correlation with recent endoscopy is recommended to help exclude an infiltrating mucosal process. at 2012 Reported and signed by: Hayden Rg M.D. CC: Sofia Cheng [employer]ACQUER POLISHER; [place] Dukes MD Technologist:Latoya Pérez, RT(R)(CT); . CTDI: DLP: Trnscb Date/Time: 10/23/2022 (2012) t.SDR.JT18 Orig Print D/T: S: 10/23/2022 (2012) PAGE 2 Signed ReportGLUCOSE [id number] 20:23:00* Test Item Value Reference Range Interpretation Comme nts GLUCOSE BEDSIDE (test code = GLUBED) 123 MG/DL 70-110 H Performed by [facility] [employer] shell machine operator at [facility] GLUCOSE [id number] 17:34:00* Test Item Value Reference Range Interpretation Comme nts GLUCOSE BEDSIDE (test code = GLUBED) 132 MG/DL 70-110 H Performed by [facility] [employer] shell machine operator at [facility] GLUCOSE [id number] 11:57:00* Test Item Value Reference Range Interpretation Comme nts GLUCOSE BEDSIDE (test code = GLUBED) 118 MG/DL 70-110 H Performed by [facility] [employer] shell machine operator at [facility] GLUCOSE [id number] 08:22:00* Test Item Value Reference Range Interpretation Comme nts GLUCOSE BEDSIDE (test code = GLUBED) 100 MG/DL 70-110 N Performed by [facility] [employer] shell machine operator at [facility] BASIC METABOLIC [id number] 08:05:00* Test Item Value Reference Range Interpretation [...] code = CA) 7.8 mg/dL 8.0-10.5 L [id number] 08:05:00* Test Item Value Reference Range Interpretation Comme nts MAGNESIUM (test code = MAG) 1.72 mg/dL 1.80-2.40 L GLUCOSE [id number] 21:10:00* Test Item Value Reference Range Interpretation Comme nts GLUCOSE BEDSIDE (test code = GLUBED) 148 MG/DL 70-110 H Performed by cer tified shell machine operator at [facility] GLUCOSE [id number] 17:29:00* Test Item Value Reference Range Interpretation Comme nts GLUCOSE BEDSIDE (test code = GLUBED) 102 MG/DL 70-110 N Performed by cer tified shell machine operator at [facility] GLUCOSE [id number] 11:54:00* Test Item Value Reference Range Interpretation Comme nts GLUCOSE BEDSIDE (test code = GLUBED) 104 MG/DL 70-110 N Performed by cer tified shell machine operator at [facility] CBC W/MANUAL [id number] 10:35:00* Test Item Value Reference Range Interpretation [...] (test code = PLTMORPH) LARGE PLATELETS GLUCOSE [id number] 07:57:00* Test Item Value Reference Range Interpretation Comme nts GLUCOSE BEDSIDE (test code = GLUBED) 95 MG/DL 70-110 N Performed by cer tified shell machine operator at [facility] C REACTIVE [id number] 07:48:00* Test Item Value Reference Range Interpretation Comme nts C REACTIVE PROTEIN (test cod e = CRP) 36.0 mg/L <10.0 H BASIC METABOLIC [id number] 07:40:00* Test Item Value Reference Range Interpretation [...] code = CA) 7.3 mg/dL 8.0-10.5 L [id number] 07:40:00* Test Item Value Reference Range Interpretation Comme nts MAGNESIUM (test code = MAG) 1.50 mg/dL 1.80-2.40 L [id number] 07:04:00* Test Item Value Reference Range Interpretation Comme [facility] D-DIMER (test code = DDIMER) 5949 ng/mlFEU See_Comment HH Critical result called to Brigido RUIZLAB.JJ1 at 0710/21/22Nurse read back result and tech confirmed it's correct? YESTHROMBOSIS AND/OR PULMONARY EMBOLISM AND THE CLINICAL CUT- OFF VALUE FOR EXCLUSION (500 ng/mL FEU) OF THESE CONDITIONSIS VALIDATED BY THE LMSW OF THE METHOD. A NEGATIVE D-DIMER RESULT [...] this result as normal/abnormal. - DUP VEIN [id number] 00:00:00 [facility] 1960 Sex: M Name: MATHEW CASTILLO [facility] : 1960 Age/S: 62 / M [address] [place] [address] Blvd Unit #: [id number] Loc: [place] [address] Phys: Skip Jaffe MD Acct: [id number] Dis Date: Status: ADM IN PHONE #: [phone] Exam Date: 10/21/2022820 FAX #: [phone] Reason: R/o DVT EXAMS: CPT CODE: [id number] DUP VEIN ASAEL 46304 PROCEDURE INFORMATION: Exam: US Duplex Lower Extremity [...] [place] Dukes MD Technologist: Yes[facility] Baker [facility] Date/Time: 10/21/2022 (911) t.SDR.AB61 Orig Print D/T: S: 10/21/2022 (911) Probe: PAGE 1 Signed Report GLUCOSE [id number] 20:40:00* Test Item Value Reference Range Interpretation Comme [facility] GLUCOSE BEDSIDE (test code = GLUBED) 148 MG/DL 70-110 H Performed by cer tified shell machine operator at [facility] GLUCOSE [id number] 16:46:00* Test Item Value Reference Range Interpretation Comme [facility] GLUCOSE BEDSIDE (test code = GLUBED) 122 MG/DL 70-110 H Performed by cer tified shell machine operator at [facility] TROP-I HIGH [id number] 15:04:00* Test Item Value Reference Range Interpretation [...] URL. These results were obtained using [employer] IM TnIHreagent. Results from different methodologies should not becompared to one another as quantitative results and URLs mayvary by method. BASIC METABOLIC [id number] 15:04:00* Test Item Value Reference Range Interpretation [...] CA) 7.1 mg/dL 8.0-10.5 L TROP-I HIGH [id number] 10:07:00* Test Item Value Reference Range Interpretation [...] URL. These results were obtained using [employer] IM TnIHreagent. Results from different methodologies should not becompared to one another as quantitative results and URLs mayvary by method. CBC W/AUTO [id number] 09:54:00* Test Item Value Reference Range Interpretation [...] (test code = MDIFF) NO TROP-I HIGH [id number] 09:24:00* Test Item Value Reference Range Interpretation [...] the URL. These results were obtained using [employer] IM TnIHreagent. Results from different methodologies should not becompared to one another as quantitative results and URLs mayvary by method. GLUCOSE [id number] 08:49:00* Test Item Value Reference Range Interpretation Comme nts GLUCOSE BEDSIDE (test code = GLUBED) 102 MG/DL 70-110 N Performed by cer violeta shell machine operator at [facility] COMPREHENSIVE METABOLIC [id number] 02:08:00* Test Item Value Reference Range Interpretation [...] code = ALKP) 47 IUnit/L 20-125 N [id number] 02:08:00* Test Item Value Reference Range Interpretation [facility] LIP[facility] (test code = LIP) 57 U/L 13-57 N PROTHROMBIN [id number] 02:05:00* Test Item Value Reference Range Interpretation [...] Infarction (to prevent recurrent infarct). THROMBOPLASTIN TIME [id number] 02:05:00* Test Item Value Reference Range Interpretation [facility] THROMBOPLAST[facility] TIME PARTIAL (test code = PTT) 26.1 Seconds 25.0-39.5 N Therapeutic Rang e: 50.4 - 88.3 Seconds Effective 07/21/2018 LACTIC [id number] 01:59:00* Test Item Value Reference Range Interpretation [facility] LACTIC ACID (test code = LACT) 1.1 mmol/L 0.4-1.9 N CBC W/AUTO [id number] 01:51:00* Test Item Value Reference Range Interpretation [facility] WHITE BLOOD CELL (test code = WBC) [...] = MDIFF) NO - XR CHEST 1 [id number] 00:00:00 [facility] : 1960 Sex: M FAX: Sofia Cheng NP [phone] [place]: [facility] FAX: [place] Callahan I [phone] Name: [facility] Maren Huang : 1960 Age/S: 62/M [address] [place] [address] Unit #: [id number] Loc: G.66[address] [place] [address] Phys: Sofia Cheng NP Acct: [id number] Dis Date: Status: ADM IN PHONE #: [phone] Exam Date: 10/20/2022106 FAX #: [phone] Reason: Sepsis EXAMS: CPT CODE: [id number] XR CHEST 1 V 48321 PROCEDURE INFORMATION: Exam: XR Chest Exam date [...] signed by:Reinaldo Jacobs M.D. CC: Sofia Cheng [employer]AC[employer] POLISHER; Sal[place] Dukes MD Technologist: Xochitl Dubon RT(R) Trnscrd Date/Time/By: 10/20/2022 (213) : By: [id number] Orig Print D/T: S: 10/20/2022 (5) PAGE 1 Signed ReportGLUCOSE [id number] 21:00:00* Test Item Value Reference Range Interpretation Comme nts GLUCOSE BEDSIDE (test code = GLUBED) 135 MG/DL 70-110 H Performed by cer violeta shell machine operator at [facility] URINALYSIS [id number] 20:03:00* Test Item Value Reference Range Interpretation [...] MUCU) 1+ /LPF NONE SEEN UR SODIUM [id number] 20:03:00* Test Item Value Reference Range Interpretation Comme nts UR SODIUM RANDOM (test code = ALPHONSE) 102 MEQ/L The Reference Ra nge and Method Performance specificationshave not been established for this fluid. The test resultshould be correlated into the clinical context forinterpretation. UR PROTEIN [id number] 20:03:00* Test Item Value Reference Range Interpretation Comme nts UR PROTEIN RANDOM (test code = PROTU) 79 mg/dL UR CREATININE [id number] 20:03:00* Test Item Value Reference Range Interpretation Comme nts UR CREATININE RANDOM (test code = CREATU) 111.9 mg/dL The Reference Ra nge and Method Performance specificationshave not been established for this fluid. The test resultshould be correlated into the clinical context forinterpretation. UR OSMOLALITY [id number] 20:03:00* Test Item Value Reference Range Interpretation Comme nts UR OSMOLALITY RANDOM (test c ode = OSMOU) 575 MOS/KG 300-1000 UR OSMOLALITY [id number] 20:02:00* Test Item Value Reference Range Interpretation Comme nts UR OSMOLALITY RANDOM (test c ode = OSMOU) 575 MOS/KG 300-1000 N GLUCOSE [id number] 17:18:00* Test Item Value Reference Range Interpretation Comme nts GLUCOSE BEDSIDE (test code = GLUBED) 122 MG/DL 70-110 H Performed by cer tified shell machine operator at [facility] GLUCOSE [id number] 12:48:00* Test Item Value Reference Range Interpretation Comme nts GLUCOSE BEDSIDE (test code = GLUBED) 109 MG/DL 70-110 N Performed by cer tified shell machine operator at [facility] GLUCOSE [id number] 07:53:00* Test Item Value Reference Range Interpretation Comme nts GLUCOSE BEDSIDE (test code = GLUBED) 96 MG/DL 70-110 N Performed by cer tified shell machine operator at [facility] BASIC METABOLIC [id number] 07:51:00* Test Item Value Reference Range Interpretation [...] code = CA) 7.5 mg/dL 8.0-10.5 L [id number] 07:51:00* Test Item Value Reference Range Interpretation Comme nts MAGNESIUM (test code = MAG) 1.65 mg/dL 1.80-2.40 L CBC W/AUTO [id number] 07:07:00* Test Item Value Reference Range Interpretation [...] (test c ode = MDIFF) NO GLUCOSE [id number] 20:44:00* Test Item Value Reference Range Interpretation Comme nts GLUCOSE BEDSIDE (test code = GLUBED) 116 MG/DL 70-110 H Performed by cer tified shell machine operator at [facility] GLUCOSE [id number] 18:07:00* Test Item Value Reference Range Interpretation Comme nts GLUCOSE BEDSIDE (test code = GLUBED) 98 MG/DL 70-110 N Performed by cer tified shell machine operator at [facility] GLUCOSE [id number] 12:23:00* Test Item Value Reference Range Interpretation Comme nts GLUCOSE BEDSIDE (test code = GLUBED) 135 MG/DL 70-110 H Performed by cer tified shell machine operator at [facility] GLUCOSE [id number] 11:22:00* Test Item Value Reference Range Interpretation Comme nts GLUCOSE BEDSIDE (test code = GLUBED) 104 MG/DL 70-110 N Performed by cer tified shell machine operator at [facility] BASIC METABOLIC [id number] 08:12:00* Test Item Value Reference Range Interpretation [...] code = CA) 7.4 mg/dL 8.0-10.5 L [id number] 08:12:00* Test Item Value Reference Range Interpretation Comme nts MAGNESIUM (test code = MAG) 1.48 mg/dL 1.80-2.40 L CBC W/AUTO [id number] 08:09:00* Test Item Value Reference Range Interpretation [...] (test c ode = MDIFF) NO GLUCOSE [id number] 05:56:00* Test Item Value Reference Range Interpretation Comme nts GLUCOSE BEDSIDE (test code = GLUBED) 104 MG/DL 70-110 N Performed by cer tified shell machine operator at [facility] GLUCOSE [id number] 03:31:00* Test Item Value Reference Range Interpretation Comme nts GLUCOSE BEDSIDE (test code = GLUBED) 129 MG/DL 70-110 H Performed by cer tified shell machine operator at [facility] GLUCOSE [id number] 12:50:00* Test Item Value Reference Range Interpretation Comme nts GLUCOSE BEDSIDE (test code = GLUBED) 177 MG/DL 70-110 H Performed by cer tified shell machine operator at [facility] CBC W/AUTO [id number] 10:14:00* Test Item Value Reference Range Interpretation [...] 0.00 x10 3/uL 0.0-0.1 N VITAMIN D [id number] 08:19:00* Test Item Value Reference Range Interpretation Comme nts VITAMIN D 25-HYDROXY (test c ode = VITD25) 25.5 ng/mL 30-100 L Indication for Test: PTH DisorderCOMPREHENSIVE METABOLIC [id number] 08:14:00* Test Item Value Reference Range Interpretation [...] code = ALKP) 62 IUnit/L 20-125 N [id number] 08:14:00* Test Item Value Reference Range Interpretation Comme nts PHOSPHOROUS (test code = PHOS) 2.6 MG/DL 2.5-4.9 N [id number] 08:14:00* Test Item Value Reference Range Interpretation Comme nts MAGNESIUM (test code = MAG) 1.50 mg/dL 1.80-2.40 L GLUCOSE [id number] 07:40:00* Test Item Value Reference Range Interpretation Comme nts GLUCOSE BEDSIDE (test code = GLUBED) 105 MG/DL 70-110 N Performed by cer tified shell machine operator at [facility] GLUCOSE [id number] 17:26:00* Test Item Value Reference Range Interpretation Comme [facility] GLUCOSE BEDSIDE (test code = GLUBED) 113 MG/DL 70-110 H Performed by cer tified shell machine operator at [facility] PROTHROMBIN [id number] 15:23:00* Test Item Value Reference Range Interpretation [...] (to prevent recurrent infarct). TSH REFLEX TO [id number] 14:32:00* Test Item Value Reference Range Interpretation Comme [facility] TSH REFLEX TO FT4 (test code = TSHREFLEX) 1.59 IU/mL 0.42-5.47 N [id number]%2022-10-16 14:19:00* Test Item Value Reference Range Interpretation Comme [facility] HGBA1C% (test code = HGBA1C%) 5.5 %A1C 4.8-6.0 N [id number] 14:13:00* Test Item Value Reference Range Interpretation Comme nts MAGNESIUM (test code = MAG) 1.91 mg/dL 1.80-2.40 N COMPREHENSIVE METABOLIC [id number] 14:13:00* Test Item Value Reference Range Interpretation [...] = ALKP) 62 IUnit/L 20-125 N GLUCOSE [id number] 12:54:00* Test Item Value Reference Range Interpretation Comme nts GLUCOSE BEDSIDE (test code = GLUBED) 102 MG/DL 70-110 N Performed by cer [employer] shell machine operator at [facility] GLUCOSE [id number] 10:14:00* Test Item Value Reference Range Interpretation Comme nts GLUCOSE BEDSIDE (test code = GLUBED) 110 MG/DL 70-110 N Performed by [employer] shell machine operator at [facility] CBC W/AUTO [id number] 05:58:00* Test Item Value Reference Range Interpretation [...] Notes Date/Time Note Provider Source 2023-02-14 02:12:00 [facility] ([facility]) Discharge Summary REPORT#:[id number] REPORT STATUS: Signed REPORT INITIALIZATION DATE:02/14/23 TIME: 211 PATIENT: MATHEW CASTILLO UNIT #: [id number] ROOM/BED: [place] [address] : 59 AGE: 62 SEX: M ATTEND: [...] BPH-s/p UroLift 01/03/2023, schizophrenia was transferred from [facility] with acute kidney injury and urinary [...] (Auto) (14.0 - 32.0 %) 7.1 L Park % (Auto) (4.8 - 9.0 %) 8.1 Eos % (Auto) (0.3 - 3.7 %) 0.4 Baso % (Auto) (0.0 - 2.0 %) 0.1 Neut # (Auto) (2.0 - 7.6 x10 3/uL) 9.37 H Lymph # (Auto) (1.0 - 3.8 x10 3/uL) 0.79 L Park # (Auto) (0.1 - 0.8 x10 3/uL) [...] 3/uL) 0.[address] ABD PELVIS W/CONT 44170 EXAM: CT abdomen and pelvis with contrast [...] Discharge Instructions Additional Discharge Routines: PCP Follow-Up, Client Coordinator Follow-Up )( Diet: Regular Follow-up Appointments PCP follow up: PCP: Lakhwinder Guillermo MD PCP follow up timeframe: In 5 days Attending Physician: Attending Physician: Salinas Abla MD Attending physician follow up timeframe: In 1-2 weeks Consulting provider 1: Provider 1: Dave Jones MD Specialty: Urology Consult follow up timeframe: In 1-[address] [place] [address] #:[phone] END OF REPORT [facility] 2023-02-04 04:06:00 [facility] ([facility]) Discharge Summary REPORT#:[id number] REPORT STATUS: Signed REPORT INITIALIZATION DATE:02/04/23 TIME: 405 PATIENT: MATHEW CASTILLO UNIT #: [id number] ROOM[address]BED: [address] : [birth year] AGE: 62 SEX: M [...] lift yesterday by Dr. Jones transferred from [place] for urology evaluation secondary to hematuria after bladder irrigation failed. Patient was seen and evaluated by Dr. 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 Last admitted to [facility] on 10/16/22 with urinary retention. Abnormal [...] of motion, normal sensory, normal motor function Neuro/BYPRODUCT ENGINEER: alert, oriented X 3 Skin: dry, intact, [...] % (Auto) (14.0 - 32.0 %) 20.8 Park % (Auto) (4.8 - 9.0 %) 7.7 Eos % (Auto) (0.3 - 3.7 %) 8.1 H Baso % (Auto) (0.0 - 2.0 %) 0.7 Neut # (Auto) (2.0 - 7.6 x10 3/uL) 4.51 Lymph # (Auto) (1.0 - 3.8 x10 3/uL) 1.51 Park # (Auto) (0.1 - 0.8 x10 3/uL) [...] 3/uL) 0.[address] ABD PELVIS W/CONT 20927 H 20 TIME OF STUDY: 01/04/2023 7:55 [...] Discharge Instructions Additional Discharge Routines: PCP Follow-Up, Client Coordinator Follow-Up )( Diet: Cardiac Follow-up Appointments PCP follow up: PCP: Lakhwinder Guillermo MD PCP follow up timeframe: In 5 days Special instructions: CALL TO MAKE APPOINTMENT Consulting provider 1: Provider 1: Dave Jones MD Specialty: Urology Special instructions: CALL TO SCHEDULE APPOINTMENT at 0735 [facility] #:[phone] END OF REPORT [facility] 2023-01-27 18:31:00 [phone] [address] PATIENT NAME: MATHEW CASTILLO ADMIT DATE: 01/06/23 ACCOUNT NO: [id number] ROOM NO: G.C146 AGE: 62 REPORT TYPE: 360 - QUERY RESPONSE DOCUMENT SEX: M ADMITTING PHYSICIAN:Salinas Alba MD ATTENDING PHYSICIAN:Salinas Alba MD Provider Query QUERY TEXT: Condition General 360MD Query related questions should be directed to: [facility] Coding Query Helpline [Based on the below mentioned clinical indicators kindly clarify the condition being treated and evaluated (uti due to balck catheter, uti not due to black catheter,uti [...] at 1831 PATIENT NAME: MATHEW CASTILLO [facility] 2023-01-27 13:09:00 [phone] [place] [address] PATIENT NAME: MATHEW CASTILLO ADMIT DATE: 01/06/23 ACCOUNT NO: [id number] ROOM NO: G.C146 AGE: 62 REPORT TYPE: 360 - QUERY RESPONSE DOCUMENT SEX: M ADMITTING PHYSICIAN:Salinas Alba MD ATTENDING PHYSICIAN:Salinas Alba MD Provider Query QUERY TEXT: Condition General 360MD Query related questions should be directed to: [facility] Coding Query Helpline [Based on your medical judgement and the clinical indicators listed below kindly specify the underlying cause of the patient's heamaturia(Hematuria due to bladder lift surgery, hematuria due to UTI, hematuria unspecified, or other more appropriate diagnosis)?.] The patient's Clinical Indicators include: 62-year-old male with last medical history of, BPH, s/p bladder lift yesterdayby Dr. Jones transferred from [place] for urology evaluation secondary tohematuria after bladder [...] at 1309 PATIENT NAME: MATHEW CASTILLO [facility] 2023-01-27 13:09:00 [phone] [place] [address] PATIENT NAME: MATHEW CASTILLO ADMIT DATE: 01/06/23 ACCOUNT NO: [id number] ROOM NO: G.C146 AGE: 62 REPORT TYPE: 360 - QUERY RESPONSE DOCUMENT SEX: M ADMITTING PHYSICIAN:Salinas Alba MD ATTENDING PHYSICIAN:Salinas Alba MD Provider Query QUERY TEXT: Condition General 360MD Query related questions should be directed to: [facility] Coding Query Helpline [Based on your clinical [...] likely could be either contaminant or direct sales representative of transient bacteremia: progress note 01/11/2023 [...] at 1309 PATIENT NAME: MATHEW CASTILLO [facility] 2023-01-22 17:40:00 [facility] Internal Medicine Prog. Note REPORT#:[id number] REPORT STATUS: Signed REPORT INITIALIZATION DATE:01/22/23 TIME: 1739 PATIENT: MATHEW CASTILLO UNIT #: [id number] ROOM/BED: [address] : 58 AGE: 62 SEX: M ATTEND: Salinas Alba MD ADM AUTHOR: Sofia Cheng LACQUER POLISHER REPT SERVICE DT/TIME: 01/22/231739 * ALL edits [...] Sodium Chloride (SODIUM CHLORIDE 0.9%) 1,000 ML .[id number] IV Haloperidol (HALDOL) 10 MG BID PO [...] (Auto) (14.0 - 32.0 %) 9.8 L Park % (Auto) (4.8 - 9.0 %) 9.0 Eos % (Auto) (0.3 - 3.7 %) 5.7 H Baso % (Auto) (0.0 - 2.0 %) 0.4 Neut # (Auto) (2.0 - 7.6 x10 3/uL) 7.35 Lymph # (Auto) (1.0 - 3.8 x10 3/uL) 0.97 L Park # (Auto) (0.1 - 0.8 x10 3/uL) [...] discharged see discharge summery at 2132 RPT #:[id number] END OF REPORT [facility] 2023-01-22 12:19:00 [facility] Nephrology Consultation Note REPORT#:[id number] REPORT STATUS: Signed REPORT INITIALIZATION DATE:01/22/23 TIME: 121 PATIENT: MATHEW CASTILLO UNIT #: [id number] ROOM/BED: 5507-1 : 59 AGE: 62 SEX: [...] given empirc abx and transferred to [facility] yesterday for further evaluation and management. Initial VS at the ER showed a temperature of 36.8c, pulse 94/min, respiration 16/min, BP 157/69 mm Hg and SpO2 97%. Laboratory data showed mild leukocytosis w/ WBC of 11.2, azotemia w/ BUN 54, Cr 2.6. Nephrology is consulted for the management of HCANDRA. The patient seen and examined. He is [...] 2100 AC 01/22 (HALDOL) PO 04/21 2058 09 Acetaminophen 650 MG Q4H PRN PRN 01/21 0645 DC (TYLENOL) PO 01/22 0533 Diagnostic Agents Sig/Mark Start time Last Medication Dose Route Stop Time Status Admin Iopamidol 100 ML .STK-MED ONE 01/22 1234 DC 01/22 (ISOVUE-300 100ML) IV 01/22 123 1234 Electrolytic, Caloric, And Scott Sig/Mark Start time Last Medication Dose Route Stop Time Status Admin Sodium Chloride 1,000 ML .[id number] 01/21 2330 AC 01/22 (SODIUM CHLORIDE IV [...] PRN 01/21 2330 AC (ZOFRAN) IV 04/21 232 Ondansetron HCl [...] Sodium Chloride (SODIUM CHLORIDE 0.9%) 1,000 ML .[id number] IV Haloperidol (HALDOL) 10 MG BID PO [...] (Auto) (14.0 - 32.0 %) 9.8 L Park % (Auto) (4.8 - 9.0 %) 9.0 Eos % (Auto) (0.3 - 3.7 %) 5.7 H Baso % (Auto) (0.0 - 2.0 %) 0.4 Neut # (Auto) (2.0 - 7.6 x10 3/uL) 7.35 Lymph # (Auto) (1.0 - 3.8 x10 3/uL) 0.97 L Park # (Auto) (0.1 - 0.8 x10 3/uL) [...] and . at 1923 at 1933 RPT #:[id number] END OF REPORT [facility] 2023-01-21 19:40:00 [facility] ([facility]) Urology Consult Note REPORT#:[id number] REPORT STATUS: Signed REPORT INITIALIZATION DATE:01/21/23 TIME: 1939 PATIENT: MATHEW CASTILLO UNIT #: [id number] ROOM/BED: 5507-1 : 59 AGE: 62 SEX: [...] at outside hospital and was transferred to [place] with acute renal failure and urinary retention. Outside labs showed creatinine of 5.6, GFR 11. They were able to place a catheter at the outside hospital and his creatinine currently is 2.6 GFR 27. Patient feels overall well he has a [address] that is patent and [...] (Auto) (14.0 - 32.0 %) 7.1 L Park % (Auto) (4.8 - 9.0 %) 8.1 Eos % (Auto) (0.3 - 3.7 %) 0.4 Baso % (Auto) (0.0 - 2.0 %) 0.1 Neut # (Auto) (2.0 - 7.6 x10 3/uL) 9.37 H Lymph # (Auto) (1.0 - 3.8 x10 3/uL) 0.79 L Park # (Auto) (0.1 - 0.8 x10 3/uL) [...] in outside hospital and was transferred to [place]. He has indwelling Black placed from the outside hospital that is patent and draining clear urine. Creatinine has down trended to 2.6 from 5.6. -Continue indwelling Black do not remove -Trend creatinine -Discussed patient to follow-up with our clinic 01/30/2023 for nurse visit catheter removal and CIC teaching for which he was amenable to trying Crystal Alberts MD -covering for Dr. Jones [facility] at 1948 RPT #:[id number] END OF REPORT [facility] 2023-01-21 10:48:00 [facility] ([facility]) History Physical - Adult REPORT#:[id number] REPORT STATUS: Signed REPORT INITIALIZATION DATE:01/21/23 TIME: 1048 PATIENT: MATHEW CASTILLO UNIT #: [id number] ROOM/BED: [place] [address] : 59 AGE: 62 SEX: M ATTEND: Salinas Alba MD ADM AUTHOR: Sofia Cheng NP REPT SERVICE DT/TIME: 01/21/23 1048 * ALL edits or amendments must be made on the electronic/computer document * History of Present Illness HPI Chief complaint: Acute kidney injury Urinary retention HPI: 62-year-old male with last medical history of, BPH-s/p UroLift 01/03/2023, schizophrenia was transferred from [facility] ER with acute kidney injury and urinary [...] of motion, normal sensory, normal motor function Neuro/BYPRODUCT ENGINEER: alert, oriented X 3 Skin: dry, intact, [...] (Auto) (14.0 - 32.0 %) 7.1 L Park % (Auto) (4.8 - 9.0 %) 8.1 Eos % (Auto) (0.3 - 3.7 %) 0.4 Baso % (Auto) (0.0 - 2.0 %) 0.1 Neut # (Auto) (2.0 - 7.6 x10 3/uL) 9.37 H Lymph # (Auto) (1.0 - 3.8 x10 3/uL) 0.79 L Park # (Auto) (0.1 - 0.8 x10 3/uL) [...] of motion, normal sensory, normal motor function Neuro/BYPRODUCT ENGINEER: alert, oriented X 3 Skin: dry, intact, no gross abnormalities Psychiatry: Mild anxiety Diagnosis, Assessment Plan Free Text DxA P Notes Free Text DxA P Notes: Assessment: 62-year-old male with last medical history of, BPH-s/p UroLift 01/03/2023, schizophrenia was transferred from [facility] with acute kidney injury and urinary [...] on patient's clinical course at 0300 at 1103 RPT #:[id number] END OF REPORT [facility] 2023-01-21 05:27:00 [facility] ([facility]) EMERGENCY PROVIDER REPORT REPORT#:[id number] REPORT STATUS: Signed DATE:01/21/23 TIME: 526 PATIENT: MATHEW CASTILLO UNIT #: [id number] ROOM/BED: [address]-1 AGE: 62 SEX: M PCP PHYS: Lakhwinder Guillermo MD SERVICE AUTHOR: Elizabeth Davenport APRNNP * ALL edits or amendments must be made on the electronic/computer document * Elizabeth Davenport 01/21/23526: HPI-General Illness Free Text HPI Notes Free Text HPI Notes 62-year-old male with PMH as listed below presents to the ER as a transfer from [facility] ER for diagnoses of ARF, urinary retention. [...] 56 and 1 L normal saline bolus FIRE SPRINKLER DESIGNER upon arrival, patient notes improved but not completely resolved lower abdominal pain. He denies any additional symptoms such as recent fever, chest pain, shortness of breath, N/V/D/C, testicular pain or any other symptoms. General Initial Greet Date/Time 01/21/23 0514 PCP ying, uro CHRISTINA, PCP, [facility] capped [...] No palpable masses or pulsatile masses. Negative [place] Sign. No TTP at [place] : [...] (Auto) (14.0 - 32.0 %) 7.1 L Park % (Auto) (4.8 - 9.0 %) 8.1 Eos % (Auto) (0.3 - 3.7 %) 0.4 Baso % (Auto) (0.0 - 2.0 %) 0.1 Neut # (Auto) (2.0 - 7.6 x10 3/uL) 9.37 H Lymph # (Auto) (1.0 - 3.8 x10 3/uL) 0.79 L Park # (Auto) (0.1 - 0.8 x10 3/uL) [...] Hospitalize Hosp Physician Name Salinas Alba MD [facility] Physician Hospitalist Request Time 06 Request Date [...] me, Pulse oximetry normal Time 0616 Re-Evaluation [facility] ED Course Medication(s) Ordered Medication(s) Ordered: Central [...] the patient along with involvement of the PA/LACQUER POLISHER. I agree with the PA/tapping machine operator automatic findings and plan. I have performed all aspects of MDM as documented including: evaluation of the patient/ patient's condition(s), review and analysis of available data, and determination of risk of patient management decisions. at 2244 at 1025 RPT #:[id number] END OF REPORT [facility] 2023-01-15 09:31:00 [phone] [place] [address] PATIENT NAME: MATHEW CASTILLO ADMIT DATE: 01/06/23 ACCOUNT NO: [id number] ROOM NO: GC146 AGE: 62 REPORT TYPE: 360 - QUERY RESPONSE DOCUMENT SEX: M ADMITTING PHYSICIAN:Salinas Alba MD ATTENDING PHYSICIAN:Salinas Alba MD Provider Query QUERY TEXT: Clarification Rule In Rule Out 360MD Query related questions should be directed to: [facility] Coding Query Help-line Based on your clinical [...] AM at 0931 PATIENT NAME: MATHEW CASTILLO [facility] 2023-01-11 17:08:00 [phone] [facility] [place] [address] PATIENT NAME: MATHEW CASTILLO ADMIT DATE: 01/06/23 ACCOUNT NO: [id number] [facility] AGE: 62 REPORT TYPE: PROGRESS NOTE SEX: [...] [facility] in [place], and from there, he was transferred to [...] likely could be either contaminant or direct sales representative of transient bacteremia. Clinically is doing [...] Date Transcribed: 01/11/2023 18:52:55 ESTRADA/JORGE Receipt ID: [id number] Authenticated and Edited by Skip Jaffe MD On 01/22/23 5:19:12 AM at 0520 PATIENT NAME: MATHEW CASTILLO [facility] 2023-01-10 21:43:00 [facility] ([facility]) Internal Medicine Prog. Note REPORT#:[id number] REPORT STATUS: Signed REPORT INITIALIZATION DATE:01/10/23 TIME: 2142 PATIENT: MATHEW CASTILLO UNIT #: [id number] ROOM/BED: [place] [address] : 59 AGE: 62 SEX: M ATTEND: Salinas Alba MD ADM AUTHOR: Sofia Cheng LACQUER POLISHER REPT SERVICE DT/TIME: 01/10/232142 * ALL edits or amendments must be made on the electronic/computer document * Subjective Chief complaint: Hematuria HPI: 62-year-old male with last medical history of, BPH, s/p bladder lift yesterday by Dr. Jones transferred from [place] for urology evaluation secondary to hematuria after bladder irrigation failed. pt was seen and evaluated by Dr. 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 Last admitted to [facility] on 10/16/22 with urinary retention. Abnormal [...] Sodium Chloride (SODIUM CHLORIDE 0.9%) 1,000 ML .[id number] IV (DC) Sodium Chloride (SODIUM CHLORIDE 0.9%) [...] of motion, normal sensory, normal motor function Neuro/BYPRODUCT ENGINEER: 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 Jones transferred from [place] for urology evaluation secondary to hematuria after bladder irrigation failed. pt was seen and evaluated by Dr. 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 Last admitted to [facility] on 10/16/22 with urinary retention. Abnormal [...] urology outpatient at 0024 at 0814 RPT #:[id number] END OF REPORT [facility] 2023-01-10 20:39:00 [facility] ([facility]) Infectious Dis. Progress Note REPORT#:[id number] REPORT STATUS: Signed REPORT INITIALIZATION DATE:01/10/23 TIME: 2038 PATIENT: MATHEW CASTILLO UNIT #: [id number] ROOM/BED: [address]: [birth year] AGE: 62 SEX: M ATTEND: [...] home on oral ciprofloxacin. at 0244 RPT #:[id number] END OF REPORT [facility] 2023-01-10 08:39:00 [id number] [address] PATIENT NAME: MATHEW CASTILLO ADMIT DATE: 01/06/23 ACCOUNT NO: [id number] ROOM NO: [facility] AGE: 62 REPORT TYPE: PROGRESS [...] Date Transcribed: 01/10/2023 09:42:11 ESTRADA/KYLE Receipt ID: [id number] Authenticated and Edited by Skip Jaffe MD On 01/22/23 5:19:04 AM at 0520 PATIENT NAME: MATHEW CASTILLO [facility] 2023-01-09 22:29:00 [facility]) Internal Medicine Prog. Note REPORT#:[id number] REPORT STATUS: Signed REPORT INITIALIZATION DATE:01/09/23 TIME: 2228 PATIENT: MATHEW CASTILLO UNIT #: [id number] [address]BED: [address] : [birth year] AGE: 62 SEX: M ATTEND: Salinas Alba MD ADM AUTHOR: Sofia Cheng NP REPT SERVICE DT/TIME: 01/09/23 8535 * ALL edits or amendments must be made on the electronic/computer document * Subjective Chief complaint: Hematuria HPI: 62-year-old male with last medical history of, BPH, s/p bladder lift yesterday by Dr. Jones transferred from [place] for urology evaluation secondary to hematuria after bladder irrigation failed. pt was seen and evaluated by Dr. 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 Last admitted to [facility] on 10/16/22 with urinary retention. Abnormal [...] Sodium Chloride (SODIUM CHLORIDE 0.9%) 1,000 ML .[id number] IV Sodium Chloride (SODIUM CHLORIDE 0.9%) 1,000 ML BOLUS IV Results Findings/Data: Laboratory Tests 01/09/23 0549: [Embedded Image Not Available] Laboratory Tests 01/09 [...] % (Auto) (14.0 - 32.0 %) 20.8 Park % (Auto) (4.8 - 9.0 %) 7.7 Eos % (Auto) (0.3 - 3.7 %) 8.1 H Baso % (Auto) (0.0 - 2.0 %) 0.7 Neut # (Auto) (2.0 - 7.6 x10 3/uL) 4.51 Lymph # (Auto) (1.0 - 3.8 x10 3/uL) 1.51 Park # (Auto) (0.1 - 0.8 x10 3/uL) [...] of motion, normal sensory, normal motor function Neuro/BYPRODUCT ENGINEER: 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 Jones transferred from [place] for urology evaluation secondary to hematuria after bladder irrigation failed. pt was seen and evaluated by Dr. 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 Last admitted to [facility] on 10/16/22 with urinary retention. Abnormal [...] present care at 2359 at 1240 RPT #:[id number] END OF REPORT [facility] 2023-01-09 19:20:00 [facility] ([facility]) Infectious Dis. Progress Note REPORT#:[id number] REPORT STATUS: Signed REPORT INITIALIZATION DATE:01/09/23 TIME: 1919 PATIENT: MATHEW CASTILLO UNIT #: [id number] ROOM/BED: [place] [address] : 59 AGE: 62 SEX: M ATTEND: [...] him home on oral ciprofloxacin. at 0432 [facility] #:[phone] END OF REPORT [facility] 2023-01-09 18:36:00 [phone] [place] [address] PATIENT NAME: MATHEW CASTILLO ADMIT DATE: 01/06/23 ACCOUNT NO: [id number] ROOM NO: G.C146 AGE: 62 REPORT TYPE: [...] was PATIENT NAME: MATHEW CASTILLO admitted to [place], and from there, he was transferred to [facility] for urology followup. The patient was [...] Dictated: 01/09/2023 18:36:08 Date Transcribed: 01/09/2023 20:19:12 /[facility] Receipt ID: [id number] Authenticated and Edited by Skip Jaffe MD On 01/22/23 5:18:55 AM at 0520 PATIENT NAME: MATHEW CASTILLO [facility] 2023-01-09 11:30:00 [facility] ([facility]) Urology Progress Note REPORT#:[id number] REPORT STATUS: Signed REPORT INITIALIZATION DATE:01/09/23 TIME: 1129 PATIENT: MATHEW CASTILLO UNIT #: [id number] ROOM/BED: [place] [address] : 59 AGE: 62 SEX: M ATTEND: [...] as planned in clinic at 1131 RPT #:[id number] END OF REPORT [facility] 2023-01-08 21:19:00 [facility] ([facility]) Internal Medicine Prog. Note REPORT#:[id number] REPORT STATUS: Signed REPORT INITIALIZATION DATE:01/08/23 TIME: 2118 PATIENT: MATHEW CASTILLO UNIT #: [id number] ROOM/BED: [place] [address] : 58 AGE: 62 SEX: M ATTEND: Salinas Alba MD ADM AUTHOR: Sofia Cheng LACQUER POLISHER REPT SERVICE DT/TIME: 01/08/232118 * ALL edits or amendments must be made on the electronic/computer document * Subjective Chief complaint: Hematuria HPI: 62-year-old male with last medical history of, BPH, s/p bladder lift yesterday by Dr. Jones transferred from [place] for urology evaluation secondary to hematuria after bladder irrigation failed. pt was seen and evaluated by Dr. 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 Last admitted to [facility] on 10/16/22 with urinary retention. Abnormal [...] I O ending at 0700: 01/08 0700 10 1900 Intake Total 550.00 Output Total Balance [...] Sodium Chloride (SODIUM CHLORIDE 0.9%) 1,000 ML .[id number] IV Sodium Chloride (SODIUM CHLORIDE 0.9%) 1,000 [...] % (Auto) (14.0 - 32.0 %) 22.3 Park % (Auto) (4.8 - 9.0 %) 6.9 Eos % (Auto) (0.3 - 3.7 %) 9.9 H Baso % (Auto) (0.0 - 2.0 %) 0.9 Neut # (Auto) (2.0 - 7.6 x10 3/uL) 3.89 Lymph # (Auto) (1.0 - 3.8 x10 3/uL) 1.46 Park # (Auto) (0.1 - 0.8 x10 3/uL) [...] of motion, normal sensory, normal motor function Neuro/BYPRODUCT ENGINEER: 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 Jones transferred from [place] for urology evaluation secondary to hematuria after bladder irrigation failed. pt was seen and evaluated by Dr. 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 Last admitted to [facility] on 10/16/22 with urinary retention. Abnormal [...] cultures, continue medications and present care at 8582 at 9126 RPT #:[id number] END OF REPORT [facility] 2023-01-08 18:59:00 [facility] [place] [facility] ([facility]) Infectious Dis. Progress Note REPORT#:[id number] REPORT STATUS: Signed REPORT INITIALIZATION DATE:01/08/23 TIME: 1858 PATIENT: MATHEW CASTILLO UNIT #: [id number] ROOM/BED: [facility]-1 : 59 AGE: 62 SEX: M ATTEND: Salinas Alba MD ADM AUTHOR: Skip Jaffe MD REPT SERVICE DT/TIME: 01/08/231858 * ALL edits or amendments must be [...] home on oral ciprofloxacin. at 0321 RPT #:[id number] END OF REPORT [facility] 2023-01-08 18:22:00 [id number] [address] PATIENT NAME: MATHEW CASTILLO ADMIT DATE: 01/06/23 ACCOUNT NO: [id number] ROOM NO: [facility] AGE: 62 REPORT TYPE: PROGRESS [...] Dictated: 01/08/2023 18:22:31 Date Transcribed: 01/08/2023 19:55:35 /[facility] [place] Receipt ID: [id number] Authenticated and Edited by Skip Jaffe MD On 01/22/23 5:18:46 AM at 0520 PATIENT NAME: MATHEW CASTILLO [facility] 2023-01-08 17:58:00 [facility] [place] [facility] ([facility]) Urology Progress Note REPORT#:[id number] REPORT STATUS: Signed REPORT INITIALIZATION DATE:01/08/23 TIME: 1758 PATIENT: MATHEW CASTILLO UNIT #: [id number] [address] AGE: 62 SEX: M ATTEND: Salinas Alba MD ADM AUTHOR: Dave Jones MD REPT SERVICE DT/TIME: 01/08/23 4137 * ALL edits or amendments must be [...] % (Auto) (14.0 - 32.0 %) 22.3 Park % (Auto) (4.8 - 9.0 %) 6.9 Eos % (Auto) (0.3 - 3.7 %) 9.9 H Baso % (Auto) (0.0 - 2.0 %) 0.9 Neut # (Auto) (2.0 - 7.6 x10 3/uL) 3.89 Lymph # (Auto) (1.0 - 3.8 x10 3/uL) 1.46 Park # (Auto) (0.1 - 0.8 x10 3/uL) [...] discharge with black tomorrow at 1759 RPT #:[id number] END OF REPORT [facility] 2023-01-08 02:42:00 [facility] [place] [facility] ([facility]) Infectious Dis. Progress Note REPORT#:[id number] REPORT STATUS: Signed REPORT INITIALIZATION DATE:01/08/23 TIME: 2 PATIENT: MATHEW CASTILLO UNIT #: [id number] ROOM/BED: [place] [address] : 59 AGE: 62 SEX: M ATTEND: [...] patient on IV Zosyn. at 0353 RPT #:[id number] END OF REPORT [facility] 2023-01-07 21:05:00 [facility] [place] [facility] ([facility]) Internal Medicine Prog. Note REPORT#:[id number] REPORT STATUS: Signed REPORT INITIALIZATION DATE:01/07/23 TIME: 2104 PATIENT: MATHEW CASTILLO UNIT #: [id number] ROOM/BED: [place] [address] : 59 AGE: 62 SEX: M ATTEND: Salinas Alba MD ADM AUTHOR: Sofia Cheng LACQUER POLISHER REPT SERVICE DT/TIME: 01/07/232104 * ALL edits or amendments must be made on the electronic/computer document * Subjective Chief complaint: Hematuria HPI: 62-year-old male with last medical history of, BPH, s/p bladder lift yesterday by Dr. Jones transferred from [place] for urology evaluation secondary to hematuria after bladder irrigation failed. pt was seen and evaluated by Dr. 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 Last admitted to [facility] on 10/16/22 with urinary retention. Abnormal [...] Sodium Chloride (SODIUM CHLORIDE 0.9%) 1,000 ML .[id number] IV Sodium Chloride (SODIUM CHLORIDE 0.9%) 1,000 [...] % (Auto) (14.0 - 32.0 %) 21.2 Park % (Auto) (4.8 - 9.0 %) 7.2 Eos % (Auto) (0.3 - 3.7 %) 10.4 H Baso % (Auto) (0.0 - 2.0 %) 0.8 Neut # (Auto) (2.0 - 7.6 x10 3/uL) 3.56 Lymph # (Auto) (1.0 - 3.8 x10 3/uL) 1.26 Park # (Auto) (0.1 - 0.8 x10 3/uL) [...] of motion, normal sensory, normal motor function Neuro/BYPRODUCT ENGINEER: 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 Jones transferred from [place] for urology evaluation secondary to hematuria after bladder irrigation failed. pt was seen and evaluated by Dr. 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 Last admitted to [facility] on 10/16/22 with urinary retention. Abnormal [...] present care at 2222 at 0742 RPT #:[id number] END OF REPORT [facility] 2023-01-07 16:17:00 [facility] [place] [facility] ([facility]) Urology Progress Note REPORT#:[id number] REPORT STATUS: Signed REPORT INITIALIZATION DATE:01/07/23 TIME: 1616 PATIENT: MATHEW CASTILLO UNIT #: [id number] ROOM/BED: [place] [address] : 59 AGE: 62 SEX: M ATTEND: [...] discharge with black tomorrow at 1617 RPT #:[id number] END OF REPORT [facility] 2023-01-07 05:20:00 [id number] [place] [address] PATIENT NAME: MATHEW CASTILLO ADMIT DATE: 01/06/23 ACCOUNT NO: [id number] ROOM NO: [facility] AGE: 62 REPORT TYPE: PROGRESS [...] Date Transcribed: 01/07/2023 05:56:47 DORADO/PAP Receipt ID: [id number] Authenticated and Edited by Skip Jaffe MD On 01/22/23 5:18:20 AM at 0520 PATIENT NAME: MATHEW CASTILLO [facility] 2023-01-06 21:39:00 [facility] [place] [facility] ([facility]) Internal Medicine Prog. Note REPORT#:[id number] REPORT STATUS: Signed REPORT INITIALIZATION DATE:01/06/23 TIME: 2138 PATIENT: MATHEW CASTILLO UNIT #: [id number] ROOM/BED: [place] [address] : 59 AGE: 62 SEX: M ATTEND: Salinas Alba MD ADM AUTHOR: Sofia Cheng LACQUER POLISHER REPT SERVICE DT/TIME: 01/06/232138 * ALL edits or amendments must be made on the electronic/computer document * Subjective Chief complaint: Hematuria HPI: 62-year-old male with last medical history of, BPH, s/p bladder lift yesterday by Dr. Jones transferred from [place] for urology evaluation secondary to hematuria after bladder irrigation failed. pt was seen and evaluated by Dr. 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 Last admitted to [facility] on 10/16/22 with urinary retention. Abnormal [...] Sodium Chloride (SODIUM CHLORIDE 0.9%) 1,000 ML .[id number] IV Sodium Chloride (SODIUM CHLORIDE 0.9%) 1,000 [...] (Auto) (14.0 - 32.0 %) 11.8 L Park % (Auto) (4.8 - 9.0 %) 7.5 Eos % (Auto) (0.3 - 3.7 %) 3.2 Baso % (Auto) (0.0 - 2.0 %) 0.4 Neut # (Auto) (2.0 - 7.6 x10 3/uL) 7.43 Lymph # (Auto) (1.0 - 3.8 x10 3/uL) 1.14 Park # (Auto) (0.1 - 0.8 x10 3/uL) [...] of motion, normal sensory, normal motor function Neuro/BYPRODUCT ENGINEER: 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 Jones transferred from [place] for urology evaluation secondary to hematuria after bladder irrigation failed. pt was seen and evaluated by Dr. 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 Last admitted to [facility] on 10/16/22 with urinary retention. Abnormal [...] supportive care at 0015 at 0740 RPT #:[id number] END OF REPORT [facility] 2023-01-06 19:39:00 [facility] [place] [facility]) Urology Progress Note REPORT#:[id number] REPORT STATUS: Signed REPORT INITIALIZATION DATE:01/06/23 TIME: 1938 PATIENT: MATHEW CASTILLO UNIT #: [id number] ROOM/BED: [place] [address] : 59 AGE: 62 SEX: M ATTEND: [...] 77.5 01/06 1540 O2 Delivery Room air 01/07 1540 Temp 36.7 01/06 154 Pulse 71 01/06 [...] irrig. run. Results Findings/Data: Laboratory Tests: 01/06 0517 Chemistry Sodium (134 - 147 mEq/L) 139 [...] (Auto) (14.0 - 32.0 %) 11.8 L Park % (Auto) (4.8 - 9.0 %) 7.5 Eos % (Auto) (0.3 - 3.7 %) 3.2 Baso % (Auto) (0.0 - 2.0 %) 0.4 Neut # (Auto) (2.0 - 7.6 x10 3/uL) 7.43 Lymph # (Auto) (1.0 - 3.8 x10 3/uL) 1.14 Park # (Auto) (0.1 - 0.8 x10 3/uL) [...] wean cbi as tolerated at 1941 RPT #:[id number] END OF REPORT [facility] 2023-01-06 19:19:00 [facility] [place] [facility] ([facility]) Infectious Dis. Progress Note REPORT#:[id number] REPORT STATUS: Signed REPORT INITIALIZATION DATE:01/06/23 TIME: 1918 PATIENT: MATHEW CASTILLO UNIT #: [id number] [address]OM[address]BED: [address] : [address] AGE: 62 SEX: M [...] possibility. [place] [address] colony-forming units of the Gram- negative rods. Identification and susceptibility is pending. Keep the patient on IV Zosyn. at 0411 RPT #:[id number] END OF REPORT [facility] 2023-01-06 17:40:00 [id number] [place] [id number] PATIENT NAME: MATHEW CASTILLO ADMIT DATE: 01/06/23 ACCOUNT NO: [id number] ROOM NO: [facility] AGE: 62 REPORT TYPE: CONSULTATION REPORT SEX: M ADMITTING PHYSICIAN:Salinas Alba MD ATTENDING PHYSICIAN:Salinas Alba MD CONSULTATION DATE: 01/05/2023 INFECTIOUS DISEASE CONSULTATION The patient examined, chart reviewed, old records reviewed. Thank you, Dr. Michael, for asking me to evaluate Mr. Mathew Castillo. HISTORY OF PRESENT ILLNESS: Mr. Castillo is known to me from his recent hospitalization at [facility] in 10/2022. He is a 62-year-old male with a past medical history of schizophrenia, benign prostatic hypertrophy with recurrent urinary symptomatology, history of previous episode of urinary retention due to bladder neck obstruction requiring indwelling Black catheter placement and hospitalization in October of 2022. The patient lives in [place] and he had an outpatient prostate procedure done by Dr. Dave Jones with UroLift on Friday01/03/2023 and was discharged home on the same day. The patient went back to [place]. However, subsequently, he started to notice ladan hematuria on Friday and had no other constitutional symptoms including fever or chills. The patient because of worsening hematuria decided to go to the hospital. He went to hospital in [place] and he was told to follow up with the urologist and he was transferred to the [facility]. The patient at present is [...] single. He lives with his daughter in [place]. The patient has been a longtime smoker and continues to smoke. No history of IV drug use, alcohol use, or substance abuse. 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 [place] admission, [place] [address]. The patient had 2 blood cultures done. Urine culture is incubating. ASSESSMENT: The patient with multiple comorbidities including history of benign prostatic hypertrophy with previous episode of urinary retention requiring indwelling Black catheter placement has undergone an UroLift procedure on 01/03/2023, and subsequently was discharged on the same day; however, yesterday he started to have hematuria and was seen at a hospital in [facility] and is transferred to [facility] for further Urology evaluation. 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 file clerk today, and he is empirically started [...] Date Transcribed: 01/06/2023 21:28:36 DORADO/GLORIA Receipt ID: [id number] Authenticated by Skip Jaffe MD On 01/22/2023 05:17:37 AM at 0517 PATIENT NAME: MATHEW CASTLILO [facility] 2023-01-05 23:00:00 [facility] [place] [facility] ([facility]) Infect Disease Consult Note REPORT#:[id number] REPORT STATUS: Signed REPORT INITIALIZATION DATE:01/05/23 TIME: 2299 PATIENT: MATHEW CASTILLO UNIT #: [id number] [address]BED: [address] : [address] AGE: 62 SEX: M ATTEND: Salinas Alba MD ADM AUTHOR: Skip Jaffe MD REPT SERVICE DT/TIME: 01/05/230 * ALL edits or amendments must be made on the electronic/computer document * History of Present Illness HPI: Thank you for the consultation. Patient's current and old record reviewed. Orders initiated. See full dictated consultation report for further details. Patient is known to our service from his recent hospitalization at [facility] in October of 2022. ASSESSMENT [...] No Known Allergies (10/16/22) at 0526 RPT #:[id number] END OF REPORT [facility] 2023-01-05 13:05:00 [facility] [place] [facility] ([facility]) Urology Consult Note REPORT#:[id number] REPORT STATUS: Signed REPORT INITIALIZATION DATE:01/05/23 TIME: 1305 PATIENT: MATHEW CASTILLO UNIT #: [id number] ROOM/BED: [place] [address] : 59 AGE: 62 SEX: M ATTEND: [...] (Auto) (14.0 - 32.0 %) 4.5 L Park % (Auto) (4.8 - 9.0 %) 6.1 Eos % (Auto) (0.3 - 3.7 %) 0.3 Baso % (Auto) (0.0 - 2.0 %) 0.2 Neut # (Auto) (2.0 - 7.6 x10 3/uL) 15.99 H Lymph # (Auto) (1.0 - 3.8 x10 3/uL) 0.82 L Park # (Auto) (0.1 - 0.8 x10 3/uL) [...] 0.1 x10 3/uL) 0.00 01/04 01/04 01/04 1707 8844 2000 Chemistry Sodium (134 - 147 mEq/L) [...] (Auto) (14.0 - 32.0 %) 5.4 L Park % (Auto) (4.8 - 9.0 %) 5.3 Eos % (Auto) (0.3 - 3.7 %) 0.0 L Baso % (Auto) (0.0 - 2.0 %) 0.2 Neut # (Auto) (2.0 - 7.6 x10 3/uL) 14.77 H Lymph # (Auto) (1.0 - 3.8 x10 3/uL) 0.90 L Park # (Auto) (0.1 - 0.8 x10 3/uL) [...] pH (5.0 - 7.0) 7.0 Ur Specific [place] (1.005 - 1.030) 1.005 Urine Protein (NEGATIVE) [...] at this time. NPOpMN Crystal Alberts MD [facility] at 1312 RPT #:[id number] END OF REPORT [facility] 2023-01-05 11:34:00 [facility] [place] [facility] ([facility]) History Physical - Adult REPORT#:[id number] REPORT STATUS: Signed REPORT INITIALIZATION DATE:01/05/23 TIME: 1133 PATIENT: MATHEW CASTILLO UNIT #: [id number] ROOM/BED: [place] [address] : 59 AGE: 62 SEX: M ATTEND: Salinas Alba MD ADM AUTHOR: Sofia Cheng LACQUER POLISHER REPT SERVICE DT/TIME: 01/05/23 1134 * ALL edits or amendments must be made on the electronic/computer document * History of Present Illness HPI Chief complaint: Hematuria HPI: 62-year-old male with last medical history of, BPH, s/p bladder lift yesterday by Dr. Jones transferred from [place] for urology evaluation secondary to hematuria after bladder irrigation failed. pt was seen and evaluated by Dr. 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 Last admitted to [facility] on 10/16/22 with urinary retention. Abnormal [...] of motion, normal sensory, normal motor function Neuro/BYPRODUCT ENGINEER: alert, oriented X 3 Skin: dry, intact, [...] (Auto) (14.0 - 32.0 %) 4.5 L Park % (Auto) (4.8 - 9.0 %) 6.1 Eos % (Auto) (0.3 - 3.7 %) 0.3 Baso % (Auto) (0.0 - 2.0 %) 0.2 Neut # (Auto) (2.0 - 7.6 x10 3/uL) 15.99 H Lymph # (Auto) (1.0 - 3.8 x10 3/uL) 0.82 L Park # (Auto) (0.1 - 0.8 x10 3/uL) [...] 0.1 x10 3/uL) 0.00 01/04 01/04 01/04 7951 2140 2001 Chemistry Sodium (134 - 147 mEq/L) 133 [...] (Auto) (14.0 - 32.0 %) 5.4 L Park % (Auto) (4.8 - 9.0 %) 5.3 Eos % (Auto) (0.3 - 3.7 %) 0.0 L Baso % (Auto) (0.0 - 2.0 %) 0.2 Neut # (Auto) (2.0 - 7.6 x10 3/uL) 14.77 H Lymph # (Auto) (1.0 - 3.8 x10 3/uL) 0.90 L Park # (Auto) (0.1 - 0.8 x10 3/uL) [...] pH (5.0 - 7.0) 7.0 Ur Specific [place] (1.005 - 1.030) 1.005 Urine Protein (NEGATIVE) [...] Report Impression - Status: SIGNED Entered: 01/04/2023 7349 IMPRESSION: 1. Prostatomegaly. Decompressed bladder with a Black in place. 2. No hydronephrosis. No enhancing renal masses. 3. Cholelithiasis and mildly distended gallbladder. 4. Moderate hiatal hernia. Impression By: Nick Magaña M.D. Diagnosis, Assessment Plan Free Text DxA P Notes Free Text DxA P Notes: Assessment: 62-year-old male with last medical history of, BPH, s/p bladder lift yesterday by Dr. Jones transferred from [place] for urology evaluation secondary to hematuria after bladder irrigation failed. pt was seen and evaluated by Dr. 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 Last admitted to [facility] on 10/16/22 with urinary retention. Abnormal [...] clinical course at 0055 at 0739 RPT #:[id number] END OF REPORT [facility] 2023-01-05 01:59:00 [facility] [place] [facility] ([facility]) Clinical Note REPORT#:[id number] REPORT STATUS: Signed REPORT INITIALIZATION DATE:01/05/23 TIME: 158 PATIENT: MATHEW CASTILLO UNIT #: [id number] ROOM/BED: [place] [address] : 59 AGE: 62 SEX: M ATTEND: Salinas Alba MD ADM AUTHOR: Sofia Cheng NP REPT SERVICE DT/TIME: 01/05/23158 * ALL edits or amendments must be made on the electronic/computer document * Clinical Note Note: Clinical data reviewed Orders placed at 0222 RPT #:[id number] END OF REPORT [facility] 2023-01-04 20:02:00 [facility] [place] [facility] ([facility]) EMERGENCY PROVIDER REPORT REPORT#:[id number] REPORT STATUS: Signed DATE:01/04/23 TIME: 2001 PATIENT: MATHEW CASTILLO UNIT #: [id number] ROOM/BED: [place] [address] AGE: 62 SEX: M PCP PHYS: Lakhwinder [...] Per daughter at bedside patient evaluated at [place] ED 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 [...] [Embedded Image Not Available] Laboratory Tests: 01/04 2142000 Chemistry Sodium (134 - 147 mEq/L) 133 [...] (Auto) (14.0 - 32.0 %) 5.4 L Park % (Auto) (4.8 - 9.0 %) 5.3 Eos % (Auto) (0.3 - 3.7 %) 0.0 L Baso % (Auto) (0.0 - 2.0 %) 0.2 Neut # (Auto) (2.0 - 7.6 x10 3/uL) 14.77 H Lymph # (Auto) (1.0 - 3.8 x10 3/uL) 0.90 L Park # (Auto) (0.1 - 0.8 x10 3/uL) [...] pH (5.0 - 7.0) 7.0 Ur Specific [place] (1.005 - 1.030) 1.005 Urine Protein (NEGATIVE) [...] indwelling black cath s/p urolift 1 day FIRE SPRINKLER DESIGNER presents to ED 2/2 gross hematuria. Tachycardic [...] 128/82 01/04 1926 B/P Mean 97 01/04 192 O2 Delivery [...] Saw Pt Alone I have reviewed the PA/LACQUER POLISHER's note and plan of care. I was available for consultation as needed at all times during the patient's visit in the emergency department. I agree with the clinical impression, plan and disposition. at 2141 at 0552 RPT #:[id number] END OF REPORT [facility] 2022-11-19 18:14:00 [facility] [place] [facility] ([facility]) Discharge Summary REPORT#:[id number] REPORT STATUS: Signed DATE:11/19/22 TIME: 1813 PATIENT: MATHEW CASTILLO UNIT #: [id number] ROOM/BED: [place] [address] : 59 AGE: 62 SEX: M ATTEND: [...] last medical history of, BPH, transferred from [place] for urology evaluation and treatment secondary to [...] of motion, normal sensory, normal motor function Neuro/BYPRODUCT ENGINEER: alert, oriented X 3 Skin: dry, intact, [...] Discharge Instructions Additional Discharge Routines: PCP Follow-Up, Client Coordinator Follow-Up )( Diet: Regular Follow-up Appointments PCP [...] FOR REMOVAL OF BLACK at 1132 RPT #:[id number] END OF REPORT [facility] 2022-10-26 20:52:00 [id number] [place], [place] [address] PATIENT NAME: MATHEW CASTILLO ADMIT DATE: 10/16/22 ACCOUNT NO: [id number] ROOM NO: G.6630 AGE: 62 REPORT TYPE: [...] Emergency Room where he was transferred from [place] with acute urinary retention. He had 3 [...] Date Transcribed: 10/26/2022 21:14:58 DORADO/JORGE/CORETTA Receipt ID: [id number] Authenticated and Edited by Skip Jaffe MD On 11/02/22 2:24:00 AM at 0323 PATIENT NAME: MATHEW CASTILLO [facility] 2022-10-26 19:14:00 [facility] Internal Medicine Prog. Note REPORT#:[id number] REPORT STATUS: Signed DATE:10/26/22 TIME: 1913 PATIENT: MATHEW CASTILLO UNIT #: [id number] ROOM/BED: [place] [address] : 59 AGE: 62 SEX: M ATTEND: Salinas Alba MD ADM AUTHOR: Sofia Cheng NP * ALL edits or amendments must be made on the electronic/computer document * Subjective Chief complaint: Abdominal distention, hydronephrosis HPI: 62-year-old male with last medical history of, BPH, transferred from [place] for urology evaluation and treatment secondary to [...] Pulse 90 10/26 170 Resp 15 10/26 1700 PATIENT WEIGHT: Weight [...] of motion, normal sensory, normal motor function Neuro/BYPRODUCT ENGINEER: 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 Rupture of ureter Free Text DxA P Notes Free text DxA P notes: Assessment: 62-year-old male with last medical history of, BPH, transferred from [place] for urology evaluation and treatment secondary to [...] 5 days Patient has no new complaints Blcak to gravity with good urine output. Nephro is following Consultants evaluations noted still on tamsulosin p.o. Continue pain control, glycemic control Fall precaution, continue medications and supportive care at 2225 at 0830 RPT #:[id number] END OF REPORT [facility] 2022-10-26 13:41:00 [facility] [place] [facility] ([facility] Nephrology Progress Note REPORT#:[id number] REPORT STATUS: Signed DATE:10/26/22 TIME: 1341 PATIENT: MATHEW CASTILLO UNIT #: [id number] ROOM/BED: [facility] : 59 AGE: 62 SEX: M ATTEND: [...] urine in his bladder. CT abdomen from [place] showed that the patient has a very [...] urine in his bladder. CT abdomen from [place] showed that the patient has a very [...] Agree with above A/P at 1342 at 9302 RPT #:[id number] END OF REPORT [facility] 2022-10-25 21:28:00 [facility] [place] [facility] ([facility]) Infectious Dis. Progress Note REPORT#:[id number] REPORT STATUS: Signed DATE:10/25/22 TIME: 2127 PATIENT: MATHEW CASTILLO UNIT #: [id number] ROOM/BED: [place] [address] : 59 AGE: 62 SEX: M ATTEND: [...] for any new nosocomial acquired infection. at [facility] #:[id number] END OF REPORT [facility] 2022-10-25 19:13:00 [facility] [place] [facility] ([facility]) Nephrology Progress Note REPORT#:[id number] REPORT STATUS: Signed DATE:10/25/22 TIME: 1912 PATIENT: MATHEW CASTILLO UNIT #: [id number] ROOM/BED: [place] [address] : 59 AGE: 62 SEX: M ATTEND: [...] (Auto) (14.0 - 32.0 %) 10.6 L Park % (Auto) (4.8 - 9.0 %) 4.4 L Eos % (Auto) (0.3 - 3.7 %) 2.4 Baso % (Auto) (0.0 - 2.0 %) 0.5 Neut # (Auto) (2.0 - 7.6 x10 3/uL) 12.30 H Lymph # (Auto) (1.0 - 3.8 x10 3/uL) 1.60 Park # (Auto) (0.1 - 0.8 x10 3/uL) [...] urine in his bladder. CT abdomen from [place] showed that the patient has a very [...] urine in his bladder. CT abdomen from [place] showed that the patient has a very [...] abx per primary team. at 1914 RPT #:[id number] END OF REPORT [facility] 2022-10-25 19:12:00 [facility] Internal Medicine Prog. Note REPORT#:[id number] REPORT STATUS: Signed DATE:10/25/22 TIME: 1911 PATIENT: MATHEW CASTILLO UNIT #: [id number] ROOM/BED: [place] [address] : 59 AGE: 62 SEX: M ATTEND: Salinas Alba MD ADM AUTHOR: Sofia Cheng NP * ALL edits or amendments must be made on the electronic/computer document * Subjective Chief complaint: Abdominal distention, hydronephrosis HPI: 62-year-old male with last medical history of, BPH, transferred from [place] for urology evaluation and treatment secondary to [...] (Auto) (14.0 - 32.0 %) 10.6 L Park % (Auto) (4.8 - 9.0 %) 4.4 L Eos % (Auto) (0.3 - 3.7 %) 2.4 Baso % (Auto) (0.0 - 2.0 %) 0.5 Neut # (Auto) (2.0 - 7.6 x10 3/uL) 12.30 H Lymph # (Auto) (1.0 - 3.8 x10 3/uL) 1.60 Park # (Auto) (0.1 - 0.8 x10 3/uL) [...] of motion, normal sensory, normal motor function Neuro/BYPRODUCT ENGINEER: 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 Rupture of ureter Free Text DxA P Notes Free text DxA P notes: Assessment: 62-year-old male with last medical history of, BPH, transferred from [place] for urology evaluation and treatment secondary to [...] and supportive care at 2224 at 0830 [facility] #:[id number] END OF REPORT [facility] 2022-10-25 10:44:00 [phone] [place] [address] PATIENT NAME: MATHEW CASTILLO ADMIT DATE: 10/16/22 ACCOUNT NO: [id number] ROOM NO: [facility] AGE: 62 REPORT TYPE: PROGRESS NOTE SEX: [...] through Emergency Room initially to hospital in [place] with urinary retention of 2 days' duration and was found to have some extravasation of urine in the peritoneal cavity. The patient was treated with IV antibiotics and had a Black catheter inserted and about 3 liters of urine was drained and the Black was left in place and he was transferred to [facility] for urology evaluation. The patient [...] Date Transcribed: 10/25/2022 11:24:45 ESTRADA/JENNI Receipt ID: [id number] Authenticated and Edited by Skip Jaffe MD On 11/02/22 2:23:50 AM at 0323 PATIENT NAME: MATHEW CASTILLO [facility] 2022-10-24 22:59:00 [facility] Internal Medicine Prog. Note REPORT#:[id number] REPORT STATUS: Signed DATE:10/24/22 TIME: 2258 PATIENT: MATHEW CASTILLO UNIT #: [id number] ROOM/BED: [place] [address] : 59 AGE: 62 SEX: M ATTEND: Salinas Alba MD ADM AUTHOR: Sofia Cheng NP * ALL edits or amendments must be made on the electronic/computer document * Subjective Chief complaint: Abdominal distention, hydronephrosis HPI: 62-year-old male with last medical history of, BPH, transferred from [place] for urology evaluation and treatment secondary to [...] of motion, normal sensory, normal motor function Neuro/BYPRODUCT ENGINEER: 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 Rupture of ureter Free Text DxA P Notes Free text DxA P notes: Assessment: 62-year-old male with last medical history of, BPH, transferred from [place] for urology evaluation and treatment secondary to [...] present care at 2223 at 0830 RPT #:[id number] END OF REPORT [facility] 2022-10-24 19:41:00 [facility] ([facility]) Infectious Dis. Progress Note REPORT#:[id number] REPORT STATUS: Signed DATE:10/24/22 TIME: 1940 PATIENT: MATHEW CASTILLO UNIT #: [id number] ROOM/BED: G6630-1 : 59 AGE: 62 SEX: [...] closely for any diarrhea. at 0316 RPT #:[id number] END OF REPORT [facility] 2022-10-24 19:12:00 [id number] [address] PATIENT NAME: MATHEW CASTILLO ADMIT DATE: 10/16/22 ACCOUNT NO: [id number] ROOM NO: G.6630 AGE: 62 REPORT TYPE: [...] problems was initially admitted to hospital in [place] where he had presented with urinary retention. The patient was found to have 3 liters of urine in the bladder. He had a Black catheter inserted and subsequently was transferred to [facility] for urology evaluation. He was [...] Date Transcribed: 10/24/2022 19:51:44 DORADO/GLORIA Receipt ID: [id number] Authenticated and Edited by Skip Jaffe MD On 11/02/22 2:23:34 AM at 0323 PATIENT NAME: MATHEW CASTILLO [facility] 2022-10-24 16:08:00 [facility] ([facility]) Nephrology Progress Note REPORT#:[id number] REPORT STATUS: Signed DATE:10/24/22 TIME: 1608 PATIENT: MATHEW CASTILLO UNIT #: [id number] ROOM/BED: [place] [address] : 59 AGE: 62 SEX: M ATTEND: [...] urine in his bladder. CT abdomen from [place] showed that the patient has a very [...] urine in his bladder. CT abdomen from [place] showed that the patient has a very [...] agree with above A/P at 1740 at 3327 RPT #:[id number] END OF REPORT [facility] 2022-10-23 21:33:00 [facility]) Internal Medicine Prog. Note REPORT#:[id number] REPORT STATUS: Signed DATE:10/23/22 TIME: 2132 PATIENT: MATHEW CASTILLO UNIT #: [id number] ROOM/BED: [address] : 59 AGE: 62 SEX: M ATTEND: Salinas Alba MD ADM AUTHOR: Sofia Cheng NP * ALL edits or amendments must be made on the electronic/computer document * Subjective Chief complaint: Abdominal distention, hydronephrosis HPI: 62-year-old male with last medical history of, BPH, transferred from [place] for urology evaluation and treatment secondary to [...] VS/I O: Laboratory Tests 10/23 1622 1133 0821 0627 Chemistry Sodium (134 - 147 mEq/L) 138 [...] Magnesium (1.80 - 2.40 mg/dL) 1.72 L 07/17 07/17 07/17 07/17 07/17 2004 1707 1126 0723 0426 Chemistry POC [...] Anisocytosis NORMAL Chemistry: 10/23 1622 1133 0825 0663 Chemistry Sodium (134 - 147 mEq/L) 138 [...] 1750 Acetaminophen 650 MG Q4H PRN PRN 07/12 1345 AC 10/20 PO 11/15 1344 0120 [...] Documented: Result Date Time Pulse Ox 97 07/19 1900 B/P 108/67 07/19 1900 B/P Mean 80.5 10/23 1899 O2 [...] of motion, normal sensory, normal motor function Neuro/BYPRODUCT ENGINEER: 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 Rupture of ureter Free Text DxA P Notes Free text DxA P notes: Assessment: 62-year-old male with last medical history of, BPH, transferred from [place] for urology evaluation and treatment secondary to [...] Fall precaution at 0250 at 0842 RPT #:[id number] END OF REPORT [facility] 2022-10-23 18:51:00 [facility] ([facility]) Infectious Dis. Progress Note REPORT#:[id number] REPORT STATUS: Signed DATE:10/23/22 TIME: 1850 PATIENT: MATHEW CASTILLO UNIT #: [id number] ROOM/BED: [facility]-1 : 59 AGE: 62 SEX: [...] closely for any diarrhea. at 0256 RPT #:[id number] END OF REPORT [facility] 2022-10-23 18:27:00 [id number] [place] [address] PATIENT NAME: MATHEW CASTILLO ADMIT DATE: 10/16/22 ACCOUNT NO: [id number] ROOM NO: G.6630 AGE: 62 REPORT TYPE: [...] Emergency Room where he was transferred from [facility] because of urinary retention. The patient presented to [facility] with 2 days' history of not able to pass any urine and he was found to have 3 liters urine in his bladder with some extravasation of urine into the peritoneal cavity. The patient had a Black catheter placed and bladder was relieved. He was transferred to [facility] for evaluation by Urology Service. The patient was kept on IV ceftriaxone. Initially, he showed improvement in his condition; however, he had a temperature of up to 37.8 degrees Celsius file clerk on 10/20/2022, and at that time, [...] Date Transcribed: 10/23/2022 18:54:06 ESTRADA/GLORIA Receipt ID: [id number] Authenticated and Edited by Skip Jaffe MD On 11/02/22 2:23:13 AM at 0225 PATIENT NAME: MATHEW CASTILLO [facility] 2022-10-23 13:24:00 [facility] ([facility]) Nephrology Progress Note REPORT#:[id number] REPORT STATUS: Signed DATE:10/23/22 TIME: 1324 PATIENT: MATHEW CASTILLO UNIT #: [id number] ROOM/BED: 6630-1 : 59 AGE: 62 SEX: [...] urine in his bladder. CT abdomen from [place] showed that the patient has a very [...] urine in his bladder. CT abdomen from [place] showed that the patient has a very [...] above A/P at 1741 at 2253 RPT #:[id number] END OF REPORT [facility] 2022-10-22 18:32:00 [facility] ([facility]) Infectious Dis. Progress Note REPORT#:[id number] REPORT STATUS: Signed DATE:10/22/22 TIME: 1831 PATIENT: MATHEW CASTILLO UNIT #: [id number] ROOM/BED: [place] [address] : 59 AGE: 62 SEX: M ATTEND: [...] low-grade temperature of the 37.6 degree C file clerk today. Remains afebrile at the present [...] empiric IV antibiotics for now. at 0219 [facility] #:[id number] END OF REPORT [facility] 2022-10-22 18:20:00 [id number] [address] PATIENT NAME: MATHEW CASTILLO ADMIT DATE: 10/16/22 ACCOUNT NO: [id number] ROOM NO: 6630 AGE: 62 REPORT TYPE: [...] was initially admitted through emergency room at [facility] with acute urinary retention. The patient has [...] for urology evaluation, he was transferred to [facility]. The patient was continued on IV ceftriaxone and had been doing fairly well until file clerk yesterday when he started to have [...] Dictated: 10/22/2022 18:20:30 Date Transcribed: 10/22/2022 19:52:40 /[facility] Receipt ID: [id number] Authenticated and Edited by Skip Jaffe MD On 11/02/22 2:22:51 AM at 0323 PATIENT NAME: MATHEW CASTILLO [facility] 2022-10-22 18:15:00 [facility] Internal Medicine Prog. Note REPORT#:[id number] REPORT STATUS: Signed DATE:10/22/22 TIME: 1814 PATIENT: MATHEW CASTILLO UNIT #: [id number] ROOM/BED: [place] [address] : 59 AGE: 62 SEX: M ATTEND: Salinas Alba MD ADM AUTHOR: Sofia Cheng NP * ALL edits or amendments must be made on the electronic/computer document * Subjective Chief complaint: Abdominal distention, hydronephrosis HPI: 62-year-old male with last medical history of, BPH, transferred from [place] for urology evaluation and treatment secondary to [...] Room air 10/22 1701 Temp 36.9 10/22 1701 Pulse 72 10/22 1701 Resp 14 07/18 1702 24 hour I O ending at [...] of motion, normal sensory, normal motor function Neuro/BYPRODUCT ENGINEER: 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 Rupture of ureter Free Text DxA P Notes Free text DxA P notes: Assessment: 62-year-old male with last medical history of, BPH, transferred from [place] for urology evaluation and treatment secondary to [...] supportive care at 0314 at 0842 RPT #:[id number] END OF REPORT [facility] 2022-10-22 09:31:00 [facility] ([facility] Nephrology Progress Note REPORT#:[id number] REPORT STATUS: Signed DATE:10/22/22 TIME: 930 PATIENT: MATHEW CASTILLO UNIT #: [id number] ROOM/BED: [place] [address] : 59 AGE: 62 SEX: M ATTEND: [...] urine in his bladder. CT abdomen from [place] showed that the patient has a very [...] urine in his bladder. CT abdomen from [place] showed that the patient has a very [...] patient's nurse, and . Toby Koehler 10/22/22 0677: Attestations Physician Attestation Reviewed findings plan: Patient examined Renal function improved and wnl, black to gravity, -2/2 post-obstrucitve uropathy, replace electrolytes as needed, agree with above A/P at 1842 at 1980 RPT #:[id number] END OF REPORT [facility] 2022-10-21 20:48:00 [facility] Internal Medicine Prog. Note REPORT#:[id number] REPORT STATUS: Signed DATE:10/21/22 TIME: 2047 PATIENT: MATHEW CASTILLO UNIT #: [id number] ROOM/BED: [place] [address] : 59 AGE: 62 SEX: M ATTEND: Salinas Alba MD ADM AUTHOR: Sofia Cheng NP * ALL edits or amendments must be made on the electronic/computer document * Subjective Chief complaint: Abdominal distention, hydronephrosis HPI: 62-year-old male with last medical history of, BPH, transferred from [place] for urology evaluation and treatment secondary to [...] of motion, normal sensory, normal motor function Neuro/BYPRODUCT ENGINEER: 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 Rupture of ureter Free Text DxA P Notes Free text DxA P notes: Assessment: 62-year-old male with last medical history of, BPH, transferred from [place] for urology evaluation and treatment secondary to [...] and present at 0104 at 1009 RPT #:[id number] END OF REPORT [facility] 2022-10-21 19:01:00 [facility] ([facility]) Infectious Dis. Progress Note REPORT#:[id number] REPORT STATUS: Signed DATE:10/21/22 TIME: 190 PATIENT: MATHEW CASTILLO UNIT #: [id number] ROOM/BED: [place] [address] : 59 AGE: 62 SEX: M ATTEND: [...] Discussed with Skylar MENDIOLA. at 0242 RPT #:[id number] END OF REPORT [facility] 2022-10-21 11:23:00 [facility] ([facility]) Nephrology Progress Note REPORT#:[id number] REPORT STATUS: Signed DATE:10/21/22 TIME: 112 PATIENT: MATHEW CASTILLO UNIT #: [id number] ROOM/BED: [facility]30-1 : 59 AGE: 62 SEX: [...] urine in his bladder. CT abdomen from [place] showed that the patient has a very [...] urine in his bladder. CT abdomen from [place] showed that the patient has a very [...] patient, patient's nurse, and . Toby Koehler S 10/21/222053: Attestations Physician Attestation Reviewed findings plan: Ptient examined Renal function improved and wnl, black to gravity, -2/2 post-obstrucitve uropathy, monitor for post-obstructive diuresis, low K replaced agree with above A/P at 1640 at 2051 [facility] #:[id number] END OF REPORT [facility] 2022-10-21 03:59:00 [id number] [address] PATIENT NAME: MATHEW CASTILLO ADMIT DATE: 10/16/22 ACCOUNT NO: [id number] ROOM NO: G.6630 AGE: 62 REPORT TYPE: [...] who was initially admitted to hospital in [place] where he presented with acute urinary retention. [...] for urology evaluation, he was transferred to [facility] on 10/16/2022 for admission. On [...] temperature of up to 37.8 degrees Celsius file clerk today and after that he had been only having low-grade fever. Denies any nausea, vomiting or diarrhea. Denies any chest pain, cough, expectoration, or shortness of breath. He continues to have a Black catheter in place and admits to having suprapubic area soreness and pain, however, states that the pain and soreness he had at the time of presentation to the [facility] has resolved. Denies any joint pains. 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 IMPRESSION: The patient with multiple comorbidities including history of schizophrenia and benign prostatic hypertrophy with worsening urinary difficulties for last over 2 years, was admitted through emergency room where he was transferred from [facility] because of need for urology evaluation. The [...] to 37.8 degrees Celsius last night and file clerk and had developed marked leukocytosis. Clinically, [...] Date Transcribed: 10/21/2022 04:40:04 DORADO/MAN Receipt ID: [id number] Authenticated by Skip Jaffe MD On 11/02/2022 02:22:37 AM at 0222 PATIENT NAME: MATHEW CASTILLO [facility] 2022-10-20 20:34:00 [facility] Nephrology Progress Note REPORT#:[id number] REPORT STATUS: Signed DATE:10/20/22 TIME: 2033 PATIENT: MATHEW CASTILLO UNIT #: [id number] ROOM/BED: [place] [address] : 59 AGE: 62 SEX: M ATTEND: [...] - 32.0 %) 9.5 L 7.3 L Park % (Auto) (4.8 - 9.0 %) 7.2 7.5 Eos % (Auto) (0.3 - 3.7 %) 2.6 2.2 Baso % (Auto) (0.0 - 2.0 %) 0.4 0.3 Neut # (Auto) (2.0 - 7.6 x10 3/uL) 13.75 H 15.38 H Lymph # (Auto) (1.0 - 3.8 x10 3/uL) 1.67 1.40 Park # (Auto) (0.1 - 0.8 x10 3/uL) [...] pulmonary edema. No focal consolidation. Impression By: [email or web address] - Reinaldo Jacobs M.D. Diagnosis, Assessment Plan Free Text A P: Assessment and Plan: CHANDRA (Resolved) -Renal function improved and wnl, black to gravity, on bicarb gtt, will d/c now. -2/2 post-obstrucitve uropathy, monitor for post-obstructive diuresis. -UA, urine lytes requested -Per Urology note: Reportedly the patient had 3L of urine in his bladder. CT abdomen from [place] showed that the patient has a very [...] urine in his bladder. CT abdomen from [place] showed that the patient has a very [...] Schizophrenia -Home medications resumed at 2150 RPT #:[id number] END OF REPORT [facility] 2022-10-20 18:11:00 [facility] Internal Medicine Prog. Note REPORT#:[id number] REPORT STATUS: Signed DATE:10/20/22 TIME: 1810 PATIENT: MATHEW CASTILLO UNIT #: [id number] ROOM/BED: [place] [address] : 59 AGE: 62 SEX: M ATTEND: Salinas Alba MD ADM AUTHOR: Sofia Cheng NP * ALL edits or amendments must be made on the electronic/computer document * Subjective Chief complaint: Abdominal distention, hydronephrosis HPI: 62-year-old male with last medical history of, BPH, transferred from [place] for urology evaluation and treatment secondary to [...] 85.4 10/20 1620 O2 Delivery Room air 10/21 1619 Temp 37.1 10/20 162 Pulse 77 10/20 [...] Coagulation INR (0.8 - 1.2) 1.1 PTT (Stark) (25.0 - 39.5 Seconds) 26.1 PT Patient/Control [...] - 32.0 %) 9.5 L 7.3 L Park % (Auto) (4.8 - 9.0 %) 7.2 7.5 Eos % (Auto) (0.3 - 3.7 %) 2.6 2.2 Baso % (Auto) (0.0 - 2.0 %) 0.4 0.3 Neut # (Auto) (2.0 - 7.6 x10 3/uL) 13.75 H 15.38 H Lymph # (Auto) (1.0 - 3.8 x10 3/uL) 1.67 1.40 Park # (Auto) (0.1 - 0.8 x10 3/uL) [...] of motion, normal sensory, normal motor function Neuro/BYPRODUCT ENGINEER: 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 Rupture of ureter Free Text DxA P Notes Free text DxA P notes: Assessment: 62-year-old male with last medical history of, BPH, transferred from [place] for urology evaluation and treatment secondary to [...] supportive care at 0141 at 1009 RPT #:[id number] END OF REPORT [facility] 2022-10-20 17:06:00 [facility] ([facility]) Infect Disease Consult Note REPORT#:[id number] REPORT STATUS: Signed DATE:10/20/22 TIME: 1705 PATIENT: MATHEW CASTILLO UNIT #: [id number] ROOM/BED: 6630-1 : 59 AGE: 62 SEX: [...] No Known Allergies (10/16/22) at 0239 RPT #:[id number] END OF REPORT [facility] 2022-10-20 01:07:00 [phone] [place] [address] PATIENT NAME: MATHEW CASTILLO ADMIT DATE: 10/16/22 ACCOUNT NO: [id number] ROOM NO: 6630 AGE: 62 REPORT TYPE: eELECTROCARDIOGRAM REPORT SEX: M ADMITTING PHYSICIAN:Salinas Alba MD ATTENDING PHYSICIAN:Salinas Alba MD Order: [id number] Test Reason : Sepsis Test Date/Time Stamp: [...] at 1247 PATIENT NAME: MATHEW CASTILLO [facility] 2022-10-19 22:43:00 [facility]) Internal Medicine Prog. Note REPORT#:[id number] REPORT STATUS: Signed DATE:10/19/22 TIME: 2242 PATIENT: MATHEW CASTILLO UNIT #: [id number] ROOM/BED: [place] [address] : 59 AGE: 62 SEX: M ATTEND: Salinas Alba MD ADM AUTHOR: Sofia Cheng NP * ALL edits or amendments must be made on the electronic/computer document * Subjective Chief complaint: Abdominal distention, hydronephrosis HPI: 62-year-old male with last medical history of, BPH, transferred from [place] for urology evaluation and treatment secondary to [...] (1.80 - 2.40 mg/dL) 1.48 L 10/1840 20126 7877 6306 Chemistry POC Glucose (70 - 110 MG/DL) [...] L Laboratory Tests 10/19 10/18 10/17 0347 6444 9253 Hematology WBC (4.5 - 11.0 x10 3/uL) [...] - 32.0 %) 15.7 15.6 10.6 L Park % (Auto) (4.8 - 9.0 %) 8.5 10.1 H 12.8 H Eos % (Auto) (0.3 - 3.7 %) 6.0 H 7.5 H 2.7 Baso % (Auto) (0.0 - 2.0 %) 0.7 0.7 0.4 Neut # (Auto) (2.0 - 7.6 x10 3/uL) 6.09 5.53 8.23 H Lymph # (Auto) (1.0 - 3.8 x10 3/uL) 1.48 1.39 1.22 Park # (Auto) (0.1 - 0.8 x10 3/uL) [...] pH (5.0 - 7.0) 5.0 Ur Specific [place] (1.005 - 1.030) 1.015 Urine Protein (NEGATIVE) [...] of motion, normal sensory, normal motor function Neuro/BYPRODUCT ENGINEER: 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 Rupture of ureter Free Text DxA P Notes Free text DxA P notes: Assessment: 62-year-old male with last medical history of, BPH, transferred from [place] for urology evaluation and treatment secondary to [...] labs, continue medications and present care at 3174 at 6018 RPT #:[id number] END OF REPORT [facility] 2022-10-19 20:14:00 [facility] ([facility]) Nephrology Progress Note REPORT#:[id number] REPORT STATUS: Signed DATE:10/19/22 TIME: 2013 PATIENT: MATHEW CASTILLO UNIT #: [id number] ROOM/BED: [place] [address] : 59 AGE: 62 SEX: M ATTEND: [...] % (Auto) (14.0 - 32.0 %) 15.7 Park % (Auto) (4.8 - 9.0 %) 8.5 Eos % (Auto) (0.3 - 3.7 %) 6.0 H Baso % (Auto) (0.0 - 2.0 %) 0.7 Neut # (Auto) (2.0 - 7.6 x10 3/uL) 6.09 Lymph # (Auto) (1.0 - 3.8 x10 3/uL) 1.48 Park # (Auto) (0.1 - 0.8 x10 3/uL) [...] pH (5.0 - 7.0) 5.0 Ur Specific [place] (1.005 - 1.030) 1.015 Urine Protein (NEGATIVE) [...] urine in his bladder. CT abdomen from [place] showed that the patient has a very [...] urine in his bladder. CT abdomen from [place] showed that the patient has a very [...] Schizophrenia -Home medications resumed at 2148 RPT #:[id number] END OF REPORT [facility] 2022-10-18 20:26:00 [facility] Internal Medicine Prog. Note REPORT#:[id number] REPORT STATUS: Signed DATE:10/18/22 TIME: 2025 PATIENT: MATHEW CASTILLO UNIT #: [id number] ROOM/BED: [address] : 59 AGE: 62 SEX: M ATTEND: Salinas Alba MD ADM AUTHOR: Sofia Cheng NP * ALL edits or amendments must be made on the electronic/computer document * Subjective Chief complaint: Abdominal distention, hydronephrosis HPI: 62-year-old male with last medical history of, BPH, transferred from [place] for urology evaluation and treatment secondary to [...] % (Auto) (14.0 - 32.0 %) 15.6 Park % (Auto) (4.8 - 9.0 %) 10.1 H Eos % (Auto) (0.3 - 3.7 %) 7.5 H Baso % (Auto) (0.0 - 2.0 %) 0.7 Neut # (Auto) (2.0 - 7.6 x10 3/uL) 5.53 Lymph # (Auto) (1.0 - 3.8 x10 3/uL) 1.39 Park # (Auto) (0.1 - 0.8 x10 3/uL) [...] of motion, normal sensory, normal motor function Neuro/BYPRODUCT ENGINEER: 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 Rupture of ureter Free Text DxA P Notes Free text DxA P notes: Assessment: 62-year-old male with last medical history of, BPH, transferred from [place] for urology evaluation and treatment secondary to [...] and supportive care at 2012 at 1301 [facility] #:[id number] END OF REPORT [facility] 2022-10-18 17:48:00 [facility] ([facility]) Nephrology Progress Note REPORT#:[id number] REPORT STATUS: Signed DATE:10/18/22 TIME: 1747 PATIENT: MATHEW CASTILLO UNIT #: [id number] ROOM/BED: 6630-1 : 59 AGE: 62 SEX: [...] % (Auto) (14.0 - 32.0 %) 15.6 Park % (Auto) (4.8 - 9.0 %) 10.1 H Eos % (Auto) (0.3 - 3.7 %) 7.5 H Baso % (Auto) (0.0 - 2.0 %) 0.7 Neut # (Auto) (2.0 - 7.6 x10 3/uL) 5.53 Lymph # (Auto) (1.0 - 3.8 x10 3/uL) 1.39 Park # (Auto) (0.1 - 0.8 x10 3/uL) [...] urine in his bladder. CT abdomen from [place] showed that the patient has a very [...] urine in his bladder. CT abdomen from [place] showed that the patient has a very [...] K and magnesium supplementation. at 193 RPT #:[id number] END OF REPORT [facility] 2022-10-17 22:43:00 [facility] Internal Medicine Prog. Note REPORT#:[id number] REPORT STATUS: Signed DATE:10/17/22 TIME: 2242 PATIENT: MATHEW CASTILLO UNIT #: [id number] ROOM/BED: [place] [address] : 59 AGE: 62 SEX: M ATTEND: Salinas Alba MD ADM AUTHOR: Sofia Cheng NP * ALL edits or amendments must be made on the electronic/computer document * Subjective Chief complaint: Abdominal distention, hydronephrosis HPI: 62-year-old male with last medical history of, BPH, transferred from [place] for urology evaluation and treatment secondary to [...] (Auto) (14.0 - 32.0 %) 10.6 L Park % (Auto) (4.8 - 9.0 %) 12.8 H Eos % (Auto) (0.3 - 3.7 %) 2.7 Baso % (Auto) (0.0 - 2.0 %) 0.4 Neut # (Auto) (2.0 - 7.6 x10 3/uL) 8.23 H Lymph # (Auto) (1.0 - 3.8 x10 3/uL) 1.22 Park # (Auto) (0.1 - 0.8 x10 3/uL) [...] of motion, normal sensory, normal motor function Neuro/BYPRODUCT ENGINEER: 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 Rupture of ureter Free Text DxA P Notes Free text DxA P notes: Assessment: 62-year-old male with last medical history of, BPH, transferred from [place] for urology evaluation and treatment secondary to [...] supportive care at 0210 at 1300 RPT #:[id number] END OF REPORT [facility] 2022-10-17 17:41:00 [facility] Urology Progress Note REPORT#:[id number] REPORT STATUS: Signed DATE:10/17/22 TIME: 1741 PATIENT: MATHEW CASTILLO UNIT #: [id number] ROOM/BED: [place] [address] : 59 AGE: 62 SEX: M ATTEND: [...] (Auto) (14.0 - 32.0 %) 10.6 L Park % (Auto) (4.8 - 9.0 %) 12.8 H Eos % (Auto) (0.3 - 3.7 %) 2.7 Baso % (Auto) (0.0 - 2.0 %) 0.4 Neut # (Auto) (2.0 - 7.6 x10 3/uL) 8.23 H Lymph # (Auto) (1.0 - 3.8 x10 3/uL) 1.22 Park # (Auto) (0.1 - 0.8 x10 3/uL) [...] cystoscopy. Home with black at 1742 RPT #:[id number] END OF REPORT [facility] 2022-10-17 13:46:00 [facility] ([facility] Nephrology Progress Note REPORT#:[id number] REPORT STATUS: Signed DATE:10/17/22 TIME: 1346 PATIENT: MATHEW CASTILLO UNIT #: [id number] [address] AGE: 62 SEX: M ATTEND: [...] (Auto) (14.0 - 32.0 %) 10.6 L Park % (Auto) (4.8 - 9.0 %) 12.8 H Eos % (Auto) (0.3 - 3.7 %) 2.7 Baso % (Auto) (0.0 - 2.0 %) 0.4 Neut # (Auto) (2.0 - 7.6 x10 3/uL) 8.23 H Lymph # (Auto) (1.0 - 3.8 x10 3/uL) 1.22 Park # (Auto) (0.1 - 0.8 x10 3/uL) [...] urine in his bladder. CT abdomen from [place] showed that the patient has a very [...] urine in his bladder. CT abdomen from [place] showed that the patient has a very [...] above A/P at 1759 at 2234 RPT #:[id number] END OF REPORT [facility] 2022-10-16 15:13:00 [place] [address] PATIENT NAME: MATHEW CASTILLO ADMIT DATE: 10/16/22 ACCOUNT NO: [id number] ROOM NO: [facility] AGE: 62 REPORT TYPE: CONSULTATION REPORT SEX: M ADMITTING PHYSICIAN:Salinas Alba MD ATTENDING PHYSICIAN:Salinas Alba MD CONSULTATION DATE:10/16/2022 REASON FOR CONSULTATION: Hydronephrosis, urinary retention. HISTORY OF PRESENT ILLNESS: This is a 62-year-old male with a history of schizophrenia who was sent in from [place]. He had reportedly almost 3 liters of [...] scan of the abdomen and pelvis from [place]. The patient has a very large distended [...] Date Transcribed: 10/16/2022 16:06:29 /JENNI Receipt ID: [id number] Authenticated and Edited by Dave Jones MD On 11/12/22 1:37:06 PM at 0138 PATIENT NAME: MATHEW CASTILLO [facility] 2022-10-16 12:39:00 [facility] ([facility]) Nephrology Consultation Note REPORT#:[id number] REPORT STATUS: Signed DATE:10/16/22 TIME: 1239 PATIENT: MATHEW CASTILLO UNIT #: [id number] ROOM/BED: G6630-1 : 59 AGE: 62 SEX: [...] Friday who took him to ER in [place]. He had CT abdomen which revealed b/l [...] (Auto) (14.0 - 32.0 %) 3.8 L Park % (Auto) (4.8 - 9.0 %) 13.6 H Eos % (Auto) (0.3 - 3.7 %) 0.4 Baso % (Auto) (0.0 - 2.0 %) 0.2 Neut # (Auto) (2.0 - 7.6 x10 3/uL) 8.96 H Lymph # (Auto) (1.0 - 3.8 x10 3/uL) 0.42 L Park # (Auto) (0.1 - 0.8 x10 3/uL) [...] urine in his bladder. CT abdomen from [place] showed that the patient has a very [...] urine in his bladder. CT abdomen from [place] showed that the patient has a very [...] patient's nurse, and . Toby Koehler 10/16/22 4043: Attestations Physician Attestation Reviewed findings plan: Patient examined 62 years old male with PMH significant for schizophrenia, HTN, BPH, current everyday smoker. The patient states that on Friday last week, he noted abdominal distention, associated w/ pain and was unable to urinate. He was seen by his daughter Friday who took him to ER in [place]. He had CT abdomen which revealed b/l hydronephrosis and concern for possible ureteral rupture. He was transferred to [facility] [place] for Urology evaluation. Initial VS at the [...] Agree with above A/P at 1902 at 4128 RPT #:[id number] END OF REPORT [facility] 2022-10-16 11:15:00 [facility] ([facility]) History Physical - Adult REPORT#:[id number] REPORT STATUS: Signed DATE:10/16/22 TIME: 1115 PATIENT: MATHEW CASTILLO UNIT #: [id number] ROOM/BED: 6630-1 : 59 AGE: 62 SEX: M ATTEND: Salinas Alba MD ADM AUTHOR: Sofia Cheng NP * ALL edits or amendments must be made on the electronic/computer document * History of Present Illness HPI Chief complaint: Abdominal distention, hydronephrosis HPI: 62-year-old male with last medical history of, BPH, transferred from [place] for urology evaluation and treatment secondary to [...] of motion, normal sensory, normal motor function Neuro/BYPRODUCT ENGINEER: alert, oriented X 3 Skin: dry, intact, [...] (Auto) (14.0 - 32.0 %) 3.8 L Park % (Auto) (4.8 - 9.0 %) 13.6 H Eos % (Auto) (0.3 - 3.7 %) 0.4 Baso % (Auto) (0.0 - 2.0 %) 0.2 Neut # (Auto) (2.0 - 7.6 x10 3/uL) 8.96 H Lymph # (Auto) (1.0 - 3.8 x10 3/uL) 0.42 L Park # (Auto) (0.1 - 0.8 x10 3/uL) [...] last medical history of, BPH, transferred from [place] for urology evaluation and treatment secondary to [...] on patient's clinical course at 0232 at 3577 RPT #:[id number] END OF REPORT [facility] 2022-10-16 03:54:00 [facility] ([facility]) EMERGENCY PROVIDER REPORT REPORT#:[id number] REPORT STATUS: Signed DATE:10/16/22 TIME: 0354 PATIENT: MATHEW CASTILLO UNIT #: [id number] ROOM/BED: [place] [address] AGE: 62 SEX: M PCP PHYS: No [...] B/P 146/78 / 0308 B/P Mean 100 07/ 0308 O2 Delivery Room air 10/16 0308 Temp 37.1 / 0308 Pulse 92 07/ 0308 Resp 18 10/16 0308 Last Documented: Result Date Time Pulse Ox 96 / 0330 B/P 146/80 / 0330 B/P Mean 107 / 0330 Pulse 90 07/ 0330 O2 Delivery Room air / 0308 Temp 37.1 / 0308 Resp 18 10/16 0308 Review of [...] (Auto) (14.0 - 32.0 %) 3.8 L Park % (Auto) (4.8 - 9.0 %) 13.6 H Eos % (Auto) (0.3 - 3.7 %) 0.4 Baso % (Auto) (0.0 - 2.0 %) 0.2 Neut # (Auto) (2.0 - 7.6 x10 3/uL) 8.96 H Lymph # (Auto) (1.0 - 3.8 x10 3/uL) 0.42 L Park # (Auto) (0.1 - 0.8 x10 3/uL) [...] Consultation Consultation Referral/Consult Name Dave Jones MD Client Coordinator Called Urology Client Coordinator Discussed with eyewear consultant Requested Call Time 034 Requested Call [...] Documented: Result Date Time Pulse Ox 96 10/160 B/P 146/80 10/160 B/P Mean 107 10/16 033 Pulse 90 10/16 0330 O2 Delivery Room [...] chart for administrative purposes only. at 1907 [facility] #:[id number] END OF REPORT [facility]
--- NOTE | 2024-08-31 15:13 | ER ---
Nurse's Notes [facility] Name: Mathew Porter Age: 63 yrs Sex: Male : 1960 Arrival Date: 08/31/2024 Time: 15:01 Bed 19 Private MD: Diagnosis: Mechanical complication of urinary (indwelling) catheter Presentation: 08/31 15:11 Chief complaint: Patient states: Securement device came open. Needs new device and bag. ll1 Coronavirus screen: Client denies travel out of the [place] in the last 14 days. At this time, the client does not indicate any symptoms associated with coronavirus-19. Ebola Screen: Patient denies travel to an Ebola-affected area in the 21 days before illness onset. Initial Sepsis Screen: Does the patient meet any 2 criteria? No. Patient's initial sepsis screen is negative. Does the patient have a suspected source of infection? No. Patient's initial sepsis screen is negative. Risk Assessment: Do you want to hurt yourself or someone else? Patient reports no desire to harm self or others. Onset of symptoms was August 31, 2024. 15:11 Method Of Arrival: Ambulatory ll1 15:11 Acuity: JAMILA 4 ll1 Triage Assessment: 15:11 General: Appears in no apparent distress. Behavior is calm, cooperative, appropriate ll1 for age. Pain: Complains of pain in pelvis Quality of pain is described as aching. : Reports needs new black securement device. Historical: - Allergies: 15:10 NKA; ll1 - PMHx: 15:10 Schizophrenia; ll1 - PSHx: 15:10 Urolift; ll1 - Immunization history:: Adult Immunizations up to date. - Infectious Disease History:: Denies. - Social history:: Smoking status: Patient reports the use of cigarette tobacco products, denies chronic smoking, but will smoke occasionally. Screenin:45 [facility] ED Fall Risk Assessment (Adult) History of falling in the last 3 months, dd2 including since admission No falls in past 3 months (0 pts) Confusion or Disorientation No (0 pts) Intoxicated or Sedated No (0 pts) Impaired Gait No (0 pts) Mobility Assist Device Used No (0 pt) Altered Elimination Yes (1 pt) Score/Fall Risk Level 0 - 2 = Low Risk Oriented to surroundings, Maintained a safe environment, Educated pt \T\ family on fall prevention, incl call for assistance when getting out of bed, Assessed \T\ reinforced patient's understanding of fall precautions, Hourly rounding (assess needs \T\ fall precautionary measures) done. Abuse screen: Denies threats or abuse. Denies injuries from another. Nutritional screening: No deficits noted. Tuberculosis screening: No symptoms or risk factors identified. Assessment: 15:45 General: Appears in no apparent distress. comfortable, Behavior is calm, cooperative, dd2 appropriate for age. Pain: Denies pain. Neuro: No deficits noted. Cardiovascular: No deficits noted. Respiratory: No deficits noted. GI: No deficits noted. : Black in place Reports NEEDING NEW STAT-LOCK Denies burning with urination, inability to void, pain. EENT: No deficits noted. No signs and/or symptoms were reported regarding the EENT system. Derm: No deficits noted. No signs and/or symptoms reported regarding the dermatologic system. Musculoskeletal: No deficits noted. No signs and/or symptoms reported regarding the musculoskeletal system. Vital Signs: 15:11 BP 166 / 99; Pulse 100; Resp 22; Temp 98.1; Pulse Ox 98% ; Weight 68.04 kg; Height 5 ll1 ft. 9 in. ; Pain 10/10; 15:11 Body Mass Index 22.15 (68.04 kg, 175.26 cm) ll1 15:11 Pain Scale: Adult ll1 Bo Coma Score: 15:45 Eye Response: spontaneous(4). Motor Response: obeys commands(6). Verbal Response: dd2 oriented(5). Total: 15. ED Course: 15:05 Patient arrived in ED. im 15:06 Ashia Robertson PA-C is PHCP. sb4 15:06 Wilbert Barragan DO is Attending Physician. sb4 15:10 Arm band placed on. ll1 15:11 Ricky Navarrete MD is Referral Physician. sb4 15:12 Triage completed. ll1 15:42 OTTO CONNOR, DEENA is Primary Nurse. dd2 15:45 Patient has correct armband on for positive identification. Bed in low position. Call dd2 light in reach. Provided Education on: BLACK CARE. 15:45 No provider procedures requiring assistance completed. Patient did not have IV access dd2 during this emergency room visit. Patient maintains SpO2 saturation greater than 95% on room air. Administered Medications: No medications were administered Medication: 15:45 VIS not applicable for this client. dd2 Outcome: 15:12 Discharge ordered by . sb4 15:45 Discharged to home ambulatory, dd2 15:45 Condition: stable 15:45 Discharge instructions given to patient, Instructed on discharge instructions, follow up and referral plans. Demonstrated understanding of instructions, follow-up care, 15:47 Patient left the ED. dd2 Signatures: Brandt Stout, RN RN ll1 Ashia Robertson, PA-C PA-C sb4 Arlene Rodríguez DIANA RN RN dd2 Corrections: (The following items were deleted from the chart) 15:14 15:11 Resp 18bpm; 68.04 kg; Height 5 ft. 9 in.; BMI: 22.1; Pain 01/14, Adult; ll1 ll1
--- NOTE | 2024-08-31 15:13 | EDPHYS ---
Physician Documentation [facility] Name: Mathew Porter Age: 63 yrs Sex: Male : 1960 Arrival Date: 08/31/2024 Time: 15:01 Bed 19 Private MD: ED Physician Wilbert Barragan HPI: 08/31 15:15 This 63 yrs old Male presents to ER via Ambulatory with complaints of Problem With sb4 Urinary Catheter. 15:15 patient with indwelling johns catheter presents stating that the device that secures sb4 his johns bag has broken and is requesting a new one. states his urine is draining normally, has no pain, or any other complaints. Historical: - Allergies: 15:10 NKA; ll1 - PMHx: 15:10 Schizophrenia; ll1 - PSHx: 15:10 Urolift; ll1 - Immunization history:: Adult Immunizations up to date. - Infectious Disease History:: Denies. - Social history:: Smoking status: Patient reports the use of cigarette tobacco products, denies chronic smoking, but will smoke occasionally. ROS: 15:15 Constitutional: Negative for fever, chills, and weight loss, sb4 15:15 All other systems are negative, Exam: 15:15 Constitutional: This is a well developed, well nourished patient who is awake, alert, sb4 and in no acute distress. Head/Face: Normocephalic, atraumatic. Eyes: Extra-ocular motions intact. Periorbital areas with no swelling, redness, or edema. ENT: Mucous membranes moist. Respiratory: No increased work of breathing, no retractions or nasal flaring. 15:15 : a johns is noted, urine is clear, 15:15 Neuro: Gait: is steady, Vital Signs: 15:11 BP 166 / 99; Pulse 100; Resp 22; Temp 98.1; Pulse Ox 98% ; Weight 68.04 kg; Height 5 ll1 ft. 9 in. ; Pain 10/10; 15:11 Body Mass Index 22.15 (68.04 kg, 175.26 cm) ll1 15:11 Pain Scale: Adult ll1 Emmet Coma Score: 15:45 Eye Response: spontaneous(4). Motor Response: obeys commands(6). Verbal Response: dd2 oriented(5). Total: 15. MDM: 15:07 Medical Screening Exam initiated sb4 15:15 Data reviewed: vital signs, nurses notes, and as a result, I will discharge patient. sb4 Counseling: I had a detailed discussion with the patient and/or guardian regarding the historical points, exam findings, and any diagnostic results supporting the discharge/admit diagnosis, the presence of at least one elevated blood pressure reading (>120/80) during this emergency department visit, the need for outpatient follow up, a urologist, to return to the emergency department if symptoms worsen or persist or if there are any questions or concerns that arise at home. 08/31 15:11 Order name: Misc. Order: new johns bag; Complete Time: 15:42 sb4 Administered Medications: No medications were administered Disposition: 18:07 I was immediately available on-site in the Emergency Department for consultation in the ms3 care of the patient. Disposition Summary: 08/31/24 15:12 Discharge Ordered Notes: Location: Home sb4 Problem: new sb4 Symptoms: have improved sb4 Condition: Stable sb4 Diagnosis - Mechanical complication of urinary (indwelling) catheter sb4 Followup: sb4 - With: Ricky Navarrete MD - When: 1 week - Reason: Recheck today's complaints, Re-evaluation by your physician Discharge Instructions: - Discharge Summary Sheet sb4 - Indwelling Urinary Catheter Care, Adult, [id number] sb4 Forms: - Patient Portal Instructions sb4 - Leadership Thank You Letter sb4 Signatures: Brandt Stout RN RN ll1 Wilbert Barragan DO DO ms3 Ashia Robertson PA-C PA-C sb4 OTTO CONNOR RN RN dd2
[2024-08-31 16:06] VITALS: BP 166/99; TEMP 98.1; O2SAT 98
== END 2024-08-31 15:47 | disposition home or self-care (01) ==
LOC: ER 15:01
DX: T83.098A Other mechanical complication of other urinary catheter, initial encounter (principal); F17.210 Nicotine dependence, cigarettes, uncomplicated
CPT/HCPCS: 99282

== ENCOUNTER 2025-01-04 17:33 | Emergency (ER) | payer OTHER ==
--- OUTSIDE RECORDS SUMMARY | 2025-01-04 17:42 | XMS REPORT | Continuity of Care Document ---
Author Name Unknown Address [address] [facility] [address] [place] [address] [facility] Address [address] [facility] [address] [place] [address] Care Team Providers Care Bushel Worker Name Role Phone Darlene Cummins Attending Clinician Unavailable Dave Del Toro Attending Clinician UnavailSalinas Hurtado I Attending Clinician UnavailPablo Rose Admitting Clinician Unavailable Dave Del Toro Admitting Clinician UnavailLakhwinder Harvey Admitting Clinician Unavailable [place] I Admitting Clinician Cristi torres Physician, No Primary or Family Admitting [facility] Unavailable Payers Payer Name Policy Type Policy Number Effective Date Expirati on Date Source Allergies, Adverse Reactions, Alerts Allergy Name Allergy Type Status Severity Reaction(s) Onset Date Inactive Date Treating Clinician Comments Source ibuprofe n DA Active U HEADACHE 10-01 00:00: 00 [facility] No Known Allergie s DA Active U 6-20 00:00: 00 [facility] No Known Allergie s DA Active U 7-12 00:00: 00 [facility] Procedures Procedure Date / Time Performed Performing Clinicia n Source RESECTION OF PROSTATE, PERCUTANEOUS ENDOSCOPIC LOAN 2024-09-28 00:00:00 HACSHEA [facility] ROBOTIC ASSISTED PROCEDURE OF TRUNK, PERC ENDO LOAN 2024-09-28 00:00:00 HACJE [facility] Encounters Start Date/Time End Date/Time Encounter Type Admission Type Attending Clinicians Care Facility Care Department Encounter ID Source [id number] 02:37:00 2024-10-05 16:53:00 Inpatient EM Darlene Cummins [facility] [id number] [facility] 2024-09-24 00:00:00 2024-09-24 00:01:00 Outpatient Dave Aguilar [facility] [id number] [facility] 2023-01-21 06:38:00 2023-01-22 20:00:00 Inpatient EM [place] [facility]01 [id number] [facility] 2023-01-06 15:12:00 2023-01-11 21:08:00 Inpatient EM [place] [facility]01 [id number] [facility] 2022-10-16 05:03:00 2022-10-26 19:41:00 Inpatient EM [place] [facility]01 [id number] [facility] Results Test Description Test Time Test Comments Results Result Co mments Source CBC W/AUTO [id number] 02:17:00* Test Item Value Reference Range Interpretation Comme nts WHITE BLOOD CELL (test code = WBC) 7.1 x10 3/uL 4.5-11.0 N RED BLOOD CELL (test code = RBC) 3.45 x10 6/uL 4.00-5.60 L HEMOGLOBIN (test code = HGB) 9.8 g/dL 12.5-16.9 L HEMATOCRIT (test code = HCT) 29.5 % 37.5-50.7 L MEAN CELL VOLUME (test code = MCV) 85.5 fL 81.0-99.0 N MEAN CELL HGB (test code = MCH) 28.4 pg 27.0-33.0 N MEAN CELL HGB CONCETRATION (test code = MCHC) 33.2 g/dL 33.0-37.0 N RED CELL DISTRIBUTION WIDTH CV (test code = RDW) 13.5 % 11.5-14.5 N RED CELL DISTRIBUTION WIDTH SD (test code = RDW-SD) 42.0 fL 37.0-54.0 N PLATELET COUNT (test code = PLT) 210 x10 3/uL 150-400 N MEAN PLATELET VOLUME (test c ode = MPV) 10.0 fL 7.0-9.0 H NEUTROPHIL % (test code = NT%) 58.9 % 56.0-77.0 N IMMATURE GRANULOCYTE % (test code = IG%) 0.3 % 0.0-2.0 N LYMPHOCYTE % (test code = LY%) 21.1 % 14.0-32.0 N MONOCYTE % (test code = MO%) 6.7 % 4.8-9.0 N EOSINOPHIL % (test code = EO%) 12.6 % 0.3-3.7 H BASOPHIL % (test code = BA%) 0.4 % 0.0-2.0 N NUCLEATED RBC % (test code = NRBC%) 0.0 % 0-0 N NEUTROPHIL # (test code = NT#) 4.15 x10 3/uL 2.0-7.6 N IMMATURE GRANULOCYTE # (test code = IG#) 0.02 x10 3/uL 0.00-0.03 N LYMPHOCYTE # (test code = LY#) 1.49 x10 3/uL 1.0-3.8 N MONOCYTE # (test code = MO#) 0.47 x10 3/uL 0.1-0.8 N EOSINOPHIL # (test code = EO#) 0.89 x10 3/uL 0.0-0.2 H BASOPHIL # (test code = BA#) 0.03 x10 3/uL 0.0-0.2 N NUCLEATED RBC # (test code = NRBC#) 0.00 x10 3/uL 0.0-0.1 N GLUCOSE [id number] 12:43:00* Test Item Value Reference Range Interpretation Comme [facility] GLUCOSE BEDSIDE (test code = GLUBED) 107 MG/DL 70-110 N Performed by cer tified mitering machine operator at [facility] GLUCOSE [id number] 08:07:00* Test Item Value Reference Range Interpretation Comme [facility] GLUCOSE BEDSIDE (test code = GLUBED) 109 MG/DL 70-110 N Performed by cer tified mitering machine operator at [facility] GLUCOSE [id number] 07:18:00* Test Item Value Reference Range Interpretation Comme nts GLUCOSE BEDSIDE (test code = GLUBED) 108 MG/DL 70-110 N Performed by cer tified mitering machine operator at [facility] BASIC METABOLIC [id number] 03:43:00* Test Item Value Reference Range Interpretation Comme nts SODIUM (test code = NA) 139 mEq/L 134-147 N POTASSIUM (test code = K) 3.6 mEq/L 3.4-5.0 N CHLORIDE (test code = CL) 103 mEq/L 100-108 N CARBON DIOXIDE (test code = CO2) 29 mEq/l 21-33 N ANION GAP (test code = GAP) 11 0-20 N GLUCOSE (test code = GLU) 100 mg/dL 77-141 N BLOOD UREA NITROGEN (test code = BUN) 13 mg/dL 7-25 N GLOMERULAR FILTRATION RATE (test code = GFR) 98.2 80-90 H The Glomerular Filtration Rate is [...] 0.6-1.3 N CALCIUM (test code = CA) 7.9 mg/dL 8.0-10.5 L CBC W/AUTO [id number] 03:26:00* Test Item Value Reference Range Interpretation Comme nts WHITE BLOOD CELL (test code = WBC) 7.0 x10 3/uL 4.5-11.0 N RED BLOOD CELL (test code = RBC) 3.58 x10 6/uL 4.00-5.60 L HEMOGLOBIN (test code = HGB) 10.2 g/dL 12.5-16.9 L HEMATOCRIT (test code = HCT) 30.7 % 37.5-50.7 L MEAN CELL VOLUME (test code = MCV) 85.8 fL 81.0-99.0 N MEAN CELL HGB (test code = MCH) 28.5 pg 27.0-33.0 N MEAN CELL HGB CONCETRATION (test code = MCHC) 33.2 g/dL 33.0-37.0 N RED CELL DISTRIBUTION WIDTH CV (test code = RDW) 13.4 % 11.5-14.5 N RED CELL DISTRIBUTION WIDTH SD (test code = RDW-SD) 42.6 fL 37.0-54.0 N PLATELET COUNT (test code = PLT) 202 x10 3/uL 150-400 N MEAN PLATELET VOLUME (test c ode = MPV) 9.6 fL 7.0-9.0 H NEUTROPHIL % (test code = NT%) 58.7 % 56.0-77.0 N IMMATURE GRANULOCYTE % (test code = IG%) 0.4 % 0.0-2.0 N LYMPHOCYTE % (test code = LY%) 19.5 % 14.0-32.0 N MONOCYTE % (test code = MO%) 7.7 % 4.8-9.0 N EOSINOPHIL % (test code = EO%) 13.3 % 0.3-3.7 H BASOPHIL % (test code = BA%) 0.4 % 0.0-2.0 N NUCLEATED RBC % (test code = NRBC%) 0.0 % 0-0 N NEUTROPHIL # (test code = NT#) 4.08 x10 3/uL 2.0-7.6 N IMMATURE GRANULOCYTE # (test code = IG#) 0.03 x10 3/uL 0.00-0.03 N LYMPHOCYTE # (test code = LY#) 1.36 x10 3/uL 1.0-3.8 N MONOCYTE # (test code = MO#) 0.54 x10 3/uL 0.1-0.8 N EOSINOPHIL # (test code = EO#) 0.93 x10 3/uL 0.0-0.2 H BASOPHIL # (test code = BA#) 0.03 x10 3/uL 0.0-0.2 N NUCLEATED RBC # (test code = NRBC#) 0.00 x10 3/uL 0.0-0.1 N GLUCOSE [id number] 21:04:00* Test Item Value Reference Range Interpretation Comme nts GLUCOSE BEDSIDE (test code = GLUBED) 101 MG/DL 70-110 N Performed by cer tified mitering machine operator at [facility] GLUCOSE [id number] 18:25:00* Test Item Value Reference Range Interpretation Comme nts GLUCOSE BEDSIDE (test code = GLUBED) 126 MG/DL 70-110 H Performed by cer tified mitering machine operator at [facility] GLUCOSE [id number] 13:09:00* Test Item Value Reference Range Interpretation Comme nts GLUCOSE BEDSIDE (test code = GLUBED) 119 MG/DL 70-110 H Performed by cer tified mitering machine operator at [facility] GLUCOSE [id number] 08:21:00* Test Item Value Reference Range Interpretation Comme nts GLUCOSE BEDSIDE (test code = GLUBED) 112 MG/DL 70-110 H Performed by cer tified mitering machine operator at [facility] BASIC METABOLIC [id number] 05:09:00* Test Item Value Reference Range Interpretation Comme nts SODIUM (test code = NA) 138 mEq/L 134-147 N POTASSIUM (test code = K) 4.0 mEq/L 3.4-5.0 N CHLORIDE (test code = CL) 102 mEq/L 100-108 N CARBON DIOXIDE (test code = CO2) 27 mEq/l 21-33 N ANION GAP (test code = GAP) 13 0-20 N GLUCOSE (test code = GLU) 107 mg/dL 77-141 N BLOOD UREA NITROGEN (test code = BUN) 19 mg/dL 7-25 N GLOMERULAR FILTRATION RATE (test code = GFR) 98.2 80-90 H The Glomerular Filtration Rate is [...] code = CA) 8.1 mg/dL 8.0-10.5 N CBC W/AUTO [id number] 04:56:00* Test Item Value Reference Range Interpretation Comme nts WHITE BLOOD CELL (test code = WBC) 8.6 x10 3/uL 4.5-11.0 N RED BLOOD CELL (test code = RBC) 3.94 x10 6/uL 4.00-5.60 L HEMOGLOBIN (test code = HGB) 11.4 g/dL 12.5-16.9 L HEMATOCRIT (test code = HCT) 34.0 % 37.5-50.7 L MEAN CELL VOLUME (test code = MCV) 86.3 fL 81.0-99.0 N MEAN CELL HGB (test code = MCH) 28.9 pg 27.0-33.0 N MEAN CELL HGB CONCETRATION (test code = MCHC) 33.5 g/dL 33.0-37.0 N RED CELL DISTRIBUTION WIDTH CV (test code = RDW) 13.9 % 11.5-14.5 N RED CELL DISTRIBUTION WIDTH SD (test code = RDW-SD) 43.8 fL 37.0-54.0 N PLATELET COUNT (test code = PLT) 227 x10 3/uL 150-400 N MEAN PLATELET VOLUME (test c ode = MPV) 10.1 fL 7.0-9.0 H NEUTROPHIL % (test code = NT%) 75.9 % 56.0-77.0 N IMMATURE GRANULOCYTE % (test code = IG%) 0.2 % 0.0-2.0 N LYMPHOCYTE % (test code = LY%) 12.2 % 14.0-32.0 L MONOCYTE % (test code = MO%) 7.3 % 4.8-9.0 N EOSINOPHIL % (test code = EO%) 4.1 % 0.3-3.7 H BASOPHIL % (test code = BA%) 0.3 % 0.0-2.0 N NUCLEATED RBC % (test code = NRBC%) 0.0 % 0-0 N NEUTROPHIL # (test code = NT#) 6.56 x10 3/uL 2.0-7.6 N IMMATURE GRANULOCYTE # (test code = IG#) 0.02 x10 3/uL 0.00-0.03 N LYMPHOCYTE # (test code = LY#) 1.05 x10 3/uL 1.0-3.8 N MONOCYTE # (test code = MO#) 0.63 x10 3/uL 0.1-0.8 N EOSINOPHIL # (test code = EO#) 0.35 x10 3/uL 0.0-0.2 H BASOPHIL # (test code = BA#) 0.03 x10 3/uL 0.0-0.2 N NUCLEATED RBC # (test code = NRBC#) 0.00 x10 3/uL 0.0-0.1 N GLUCOSE [id number] 19:48:00* Test Item Value Reference Range Interpretation Comme nts GLUCOSE BEDSIDE (test code = GLUBED) 117 MG/DL 70-110 H Performed by cer tified mitering machine operator at [facility] GLUCOSE [id number] 17:32:00* Test Item Value Reference Range Interpretation Comme nts GLUCOSE BEDSIDE (test code = GLUBED) 121 MG/DL 70-110 H Performed by cer tified mitering machine operator at [facility] GLUCOSE [id number] 12:39:00* Test Item Value Reference Range Interpretation Comme nts GLUCOSE BEDSIDE (test code = GLUBED) 118 MG/DL 70-110 H Performed by cer tified mitering machine operator at [facility] GLUCOSE [id number] 12:19:00* Test Item Value Reference Range Interpretation Comme nts GLUCOSE BEDSIDE (test code = GLUBED) 110 MG/DL 70-110 N Performed by cer tified mitering machine operator at [facility] GLUCOSE [id number] 06:25:00* Test Item Value Reference Range Interpretation Comme nts GLUCOSE BEDSIDE (test code = GLUBED) 116 MG/DL 70-110 H Performed by cer tified mitering machine operator at [facility] CBC W/AUTO [id number] 06:15:00* Test Item Value Reference Range Interpretation Comme nts WHITE BLOOD CELL (test code = WBC) 10.3 x10 3/uL 4.5-11.0 N RED BLOOD CELL (test code = RBC) 4.50 x10 6/uL 4.00-5.60 N HEMOGLOBIN (test code = HGB) 12.9 g/dL 12.5-16.9 N HEMATOCRIT (test code = HCT) 38.7 % 37.5-50.7 N MEAN CELL VOLUME (test code = MCV) 86.0 fL 81.0-99.0 N MEAN CELL HGB (test code = MCH) 28.7 pg 27.0-33.0 N MEAN CELL HGB CONCETRATION (test code = MCHC) 33.3 g/dL 33.0-37.0 N RED CELL DISTRIBUTION WIDTH CV (test code = RDW) 14.0 % 11.5-14.5 N RED CELL DISTRIBUTION WIDTH SD (test code = RDW-SD) 43.8 fL 37.0-54.0 N PLATELET COUNT (test code = PLT) 253 x10 3/uL 150-400 N MEAN PLATELET VOLUME (test c ode = MPV) 10.8 fL 7.0-9.0 H NEUTROPHIL % (test code = NT%) 81.5 % 56.0-77.0 H IMMATURE GRANULOCYTE % (test code = IG%) 0.5 % 0.0-2.0 N LYMPHOCYTE % (test code = LY%) 9.2 % 14.0-32.0 L MONOCYTE % (test code = MO%) 6.7 % 4.8-9.0 N EOSINOPHIL % (test code = EO%) 1.7 % 0.3-3.7 N BASOPHIL % (test code = BA%) 0.4 % 0.0-2.0 N NUCLEATED RBC % (test code = NRBC%) 0.0 % 0-0 N NEUTROPHIL # (test code = NT#) 8.39 x10 3/uL 2.0-7.6 H IMMATURE GRANULOCYTE # (test code = IG#) 0.05 x10 3/uL 0.00-0.03 H LYMPHOCYTE # (test code = LY#) 0.95 x10 3/uL 1.0-3.8 L MONOCYTE # (test code = MO#) 0.69 x10 3/uL 0.1-0.8 N EOSINOPHIL # (test code = EO#) 0.17 x10 3/uL 0.0-0.2 N BASOPHIL # (test code = BA#) 0.04 x10 3/uL 0.0-0.2 N NUCLEATED RBC # (test code = NRBC#) 0.00 x10 3/uL 0.0-0.1 N BASIC METABOLIC [id number] 06:12:00* Test Item Value Reference Range Interpretation Comme nts SODIUM (test code = NA) 140 mEq/L 134-147 N POTASSIUM (test code = K) 4.1 mEq/L 3.4-5.0 N CHLORIDE (test code = CL) 103 mEq/L 100-108 N CARBON DIOXIDE (test code = CO2) 25 mEq/l 21-33 N ANION GAP (test code = GAP) 16 0-20 N GLUCOSE (test code = GLU) 98 mg/dL 77-141 N BLOOD UREA NITROGEN (test code = BUN) 15 mg/dL 7-25 N GLOMERULAR FILTRATION RATE (test code = GFR) 98.2 80-90 H The Glomerular Filtration Rate is [...] 0.6-1.3 N CALCIUM (test code = CA) 8.5 mg/dL 8.0-10.5 N [id number] 06:12:00* Test Item Value Reference Range Interpretation Comme nts MAGNESIUM (test code = MAG) 1.82 mg/dL 1.6-2.6 N COMPREHENSIVE METABOLIC [id number] 02:51:00* Test Item Value Reference Range Interpretation Comme nts SODIUM (test code = NA) 139 mEq/L 134-147 N POTASSIUM (test code = K) 4.2 mEq/L 3.4-5.0 N CHLORIDE (test code = CL) 104 mEq/L 100-108 N CARBON DIOXIDE (test code = CO2) 27 mEq/l 21-33 N ANION GAP (test code = GAP) 12 0-20 N GLUCOSE (test code = GLU) 144 mg/dL 77-141 H BLOOD UREA NITROGEN (test code = BUN) 16 mg/dL 7-25 N GLOMERULAR FILTRATION RATE (test code = GFR) 74.5 80-90 L The Glomerular Filtration Rate is [...] code = CREAT) 1.1 mg/dL 0.6-1.3 N TOTAL PROTEIN (test code = PROT) 6.5 g/dL 5.7-8.2 N Note change in REFERENCE RANGE due to change in REAGENT. ALBUMIN (test code = ALB) 3.30 g/dL 3.4-5.0 L CALCIUM (test code = CA) 8.3 mg/dL 8.0-10.5 N BILIRUBIN TOTAL (test code = BILT) 0.90 mg/dL 0.0-1.0 N SGOT/AST (test code = AST) 16 IUnit/L 8-34 N SGPT/ALT (test code = ALT) 11 IUnit/L 10-49 N ALKALINE PHOSPHATASE TOTAL (test code = ALKP) 61 IUnit/L 20-125 N UA RFLX MICR CULT IF [id number] 02:40:00* Test Item Value Reference Range Interpretation Comme nts UA COLOR (test code = COLU) RED YEL/STRAW A UA APPEARANCE (test code = APPU) CLOUDY CLEAR A UA GLUCOSE DIPSTICK (test co de = DGLUU) NEGATIVE NEGATIVE UA BILIRUBIN DIPSTICK (test code = BILU) NEGATIVE NEGATIVE UA KETONE DIPSTICK (test cod e = KETU) NEGATIVE NEGATIVE UA SPECIFIC GRAVITY (test co de = SGU) 1.010 1.005-1.030 N UA BLOOD DIPSTICK (test code = ROXANA) 5+ NEGATIVE UA PH DIPSTICK (test code = FORREST) 7.0 5.0-7.0 N UA PROTEIN DIPSTICK (test co de = PROU) 4+ NEGATIVE A UA UROBILINIOGEN DIPSTICK (test code = URO) 0.2 mg/dL 0.2-1.0 UA NITRITE DIPSTICK (test co de = CR) NEGATIVE NEGATIVE UA LEUKOCYTE ESTERASE DIPSTI CK (test code = LEUU) NEGATIVE NEGATIVE UA WBC (test code = WBCU) 4-9 WBC/HPF 0-3 A UA RBC (test code = RBCU) >50 RBC/HPF 0-3 A UA WBC NO REFLEX (test code = WBCUCL) 4-9 WBC/HPF 0-3 A UA BACTERIA (test code = BACU) TRACE /HPF NONE SEEN UA SQUAMOUS CELLS (test code = SQU) NONE SEEN /HPF NONE SEEN Indication for culture: RiskForSepsis-no oth srcSpecimen Description: CLEAN CATCHCBC W/AUTO [id number] 02:35:00* Test Item Value Reference Range Interpretation Comme nts WHITE BLOOD CELL (test code = WBC) 14.4 x10 3/uL 4.5-11.0 H RED BLOOD CELL (test code = RBC) 4.28 x10 6/uL 4.00-5.60 N HEMOGLOBIN (test code = HGB) 12.1 g/dL 12.5-16.9 L HEMATOCRIT (test code = HCT) 36.8 % 37.5-50.7 L MEAN CELL VOLUME (test code = MCV) 86.0 fL 81.0-99.0 N MEAN CELL HGB (test code = MCH) 28.3 pg 27.0-33.0 N MEAN CELL HGB CONCETRATION (test code = MCHC) 32.9 g/dL 33.0-37.0 L RED CELL DISTRIBUTION WIDTH CV (test code = RDW) 14.1 % 11.5-14.5 N RED CELL DISTRIBUTION WIDTH SD (test code = RDW-SD) 44.4 fL 37.0-54.0 N PLATELET COUNT (test code = PLT) 203 x10 3/uL 150-400 N MEAN PLATELET VOLUME (test code = MPV) 10.3 fL 7.0-9.0 H NEUTROPHIL % (test code = NT%) 96.2 % 56.0-77.0 H IMMATURE GRANULOCYTE % (test code = IG%) 0.7 % 0.0-2.0 N LYMPHOCYTE % (test code = LY%) 1.7 % 14.0-32.0 L MONOCYTE % (test code = MO%) 1.2 % 4.8-9.0 L EOSINOPHIL % (test code = EO%) 0.0 % 0.3-3.7 L BASOPHIL % (test code = BA%) 0.2 % 0.0-2.0 N NUCLEATED RBC % (test code = NRBC%) 0.0 % 0-0 N NEUTROPHIL # (test code = NT#) 13.82 x10 3/uL 2.0-7.6 H IMMATURE GRANULOCYTE # (test code = IG#) 0.10 x10 3/uL 0.00-0.03 H LYMPHOCYTE # (test code = LY#) 0.24 x10 3/uL 1.0-3.8 L MONOCYTE # (test code = MO#) 0.17 x10 3/uL 0.1-0.8 N EOSINOPHIL # (test code = EO#) 0.00 x10 3/uL 0.0-0.2 N BASOPHIL # (test code = BA#) 0.03 x10 3/uL 0.0-0.2 N NUCLEATED RBC # (test code = NRBC#) 0.00 x10 3/uL 0.0-0.1 N [id number] 12:01:00* Test Item Value Reference Range Interpretation Comments SURGICAL (test code = SR) RUN DATE: 09/30/24 [facility] PAGE 1 RUN TIME: 1201 Specimen Inquiry RUN USER: INTERFACE PATIENT: MATHEW CASTILLO SINCERE LOC: [facility] U #: [id number] AGE/SX: 64/M ROOM: [facility] RE09/29/24REG DR: Dave Del Toro MD : 59 BED: 1 DIS: STATUS: ADM IN TLOC: SPEC #: [id number] RECD: 09/29/24 STATUS: [place] RE #: [id number] NIKHIL: 09/28/24- SUBM DR: Dave Del Toro MD ENTERED: 09/29/24 SP TYPE: SURGICAL OTHR DR: Self Referred Pablo Cano MD, Alkesh C MDORDERED: [id number], ANATOMIC SPEC COPIES TO: Self Referred Pablo Cano MD [address] [facility] [address] [place] [address] Lakhwinder Guillermo MD [address] [place] [address] Dave Del Toro MD [address] [place] [address]., [place] [address] [email or web address] PROCEDURES: [id number] (09/29/24) TISSUES: A. PROSTATE GLAND CLINICAL HISTORY SAME FINAL DIAGNOSIS Prostate, simple prostatectomy: - Stromal hypertrophy and chronic prostatitis. - No malignancy identified. GROSS DESCRIPTION Received in formalin labeled "prostate" is a 103 g, 8.1 x 7.0 x 4.3 cm piece of boyd-pinkprostatic parenchyma. The specimen is serially sectioned to reveal a heterogeneous nodularcut surface with no gross lesions. Rehabilitation Director sections are submitted in A-T. CONTINUED ON NEXT PAGE RUN DATE: 09/30/24 [place] - LAB PAGE 2 RUN TIME: 1201 Specimen Inquiry RUN USER: INTERFACE SPEC #: [id number] PATIENT: MATHEW CASTILLO #[id number] (Continued) - GROSS DESCRIPTION (Continued) Technical component performed at [facility],[address] [place] [id number] Unless gross only, the diagnosis is based upon microscopic examination.Immunohistochemistry: This test was developed and its performance characteristicsdetermined by this laboratory. It has not been approved nor does it need approvalby the [place] FDA. Appropriate positive and negative controls are reviewed and judgedto be acceptable for performedimmunohistochemistry and/or special stains. This laboratoryis certified under the Clinical Laboratory Improvement Amendments (CLIA-88) as qualified toperform high complexity clinical laboratory testing. CLINICAL INFORMATION BPH WITH LOWER URINARY TRACT SYMPTOMS Signed Neno Armendariz 09/30/24 1201 END OF REPORT BASIC METABOLIC [id number] 06:40:00* Test Item Value Reference Range Interpretation Comme nts SODIUM (test code = NA) 138 mEq/L 134-147 N POTASSIUM (test code = K) 3.6 mEq/L 3.4-5.0 N CHLORIDE (test code = CL) 102 mEq/L 100-108 N CARBON DIOXIDE (test code = CO2) 29 mEq/l 21-33 N ANION GAP (test code = GAP) 11 0-20 N GLUCOSE (test code = GLU) 144 mg/dL 77-141 H BLOOD UREA NITROGEN (test code = BUN) 12 mg/dL 7-25 N GLOMERULAR FILTRATION RATE (test code = GFR) 94.8 80-90 H The Glomerular Filtration Rate is [...] 0.6-1.3 N CALCIUM (test code = CA) 8.4 mg/dL 8.0-10.5 N CBC W/AUTO [id number] 06:27:00* Test Item Value Reference Range Interpretation Comme nts WHITE BLOOD CELL (test code = WBC) 10.9 x10 3/uL 4.5-11.0 N RED BLOOD CELL (test code = RBC) 4.34 x10 6/uL 4.00-5.60 N HEMOGLOBIN (test code = HGB) 12.3 g/dL 12.5-16.9 L HEMATOCRIT (test code = HCT) 37.4 % 37.5-50.7 L MEAN CELL VOLUME (test code = MCV) 86.2 fL 81.0-99.0 N MEAN CELL HGB (test code = MCH) 28.3 pg 27.0-33.0 N MEAN CELL HGB CONCETRATION (test code = MCHC) 32.9 g/dL 33.0-37.0 L RED CELL DISTRIBUTION WIDTH CV (test code = RDW) 14.4 % 11.5-14.5 N RED CELL DISTRIBUTION WIDTH SD (test code = RDW-SD) 45.0 fL 37.0-54.0 N PLATELET COUNT (test code = PLT) 188 x10 3/uL 150-400 N MEAN PLATELET VOLUME (test c ode = MPV) 10.4 fL 7.0-9.0 H NEUTROPHIL % (test code = NT%) 83.2 % 56.0-77.0 H IMMATURE GRANULOCYTE % (test code = IG%) 0.5 % 0.0-2.0 N LYMPHOCYTE % (test code = LY%) 7.2 % 14.0-32.0 L MONOCYTE % (test code = MO%) 6.0 % 4.8-9.0 N EOSINOPHIL % (test code = EO%) 2.7 % 0.3-3.7 N BASOPHIL % (test code = BA%) 0.4 % 0.0-2.0 N NUCLEATED RBC % (test code = NRBC%) 0.0 % 0-0 N NEUTROPHIL # (test code = NT#) 9.09 x10 3/uL 2.0-7.6 H IMMATURE GRANULOCYTE # (test code = IG#) 0.06 x10 3/uL 0.00-0.03 H LYMPHOCYTE # (test code = LY#) 0.79 x10 3/uL 1.0-3.8 L MONOCYTE # (test code = MO#) 0.65 x10 3/uL 0.1-0.8 N EOSINOPHIL # (test code = EO#) 0.29 x10 3/uL 0.0-0.2 H BASOPHIL # (test code = BA#) 0.04 x10 3/uL 0.0-0.2 N NUCLEATED RBC # (test code = NRBC#) 0.00 x10 3/uL 0.0-0.1 N BASIC METABOLIC [id number] 06:15:00* Test Item Value Reference Range Interpretation Comme nts SODIUM (test code = NA) 139 mEq/L 134-147 N POTASSIUM (test code = K) 4.2 mEq/L 3.4-5.0 N CHLORIDE (test code = CL) 103 mEq/L 100-108 N CARBON DIOXIDE (test code = CO2) 28 mEq/l 21-33 N ANION GAP (test code = GAP) 12 0-20 N GLUCOSE (test code = GLU) 112 mg/dL 77-141 N BLOOD UREA NITROGEN (test code = BUN) 12 mg/dL 7-25 N GLOMERULAR FILTRATION RATE (test code = GFR) 95.4 80-90 H The Glomerular Filtration Rate is [...] 0.6-1.3 N CALCIUM (test code = CA) 8.3 mg/dL 8.0-10.5 N CBC W/AUTO [id number] 05:44:00* Test Item Value Reference Range Interpretation Comme nts WHITE BLOOD CELL (test code = WBC) 12.3 x10 3/uL 4.5-11.0 H RED BLOOD CELL (test code = RBC) 4.47 x10 6/uL 4.00-5.60 N HEMOGLOBIN (test code = HGB) 12.7 g/dL 12.5-16.9 N HEMATOCRIT (test code = HCT) 38.2 % 37.5-50.7 N MEAN CELL VOLUME (test code = MCV) 85.5 fL 81.0-99.0 N MEAN CELL HGB (test code = MCH) 28.4 pg 27.0-33.0 N MEAN CELL HGB CONCETRATION (test code = MCHC) 33.2 g/dL 33.0-37.0 N RED CELL DISTRIBUTION WIDTH CV (test code = RDW) 14.2 % 11.5-14.5 N RED CELL DISTRIBUTION WIDTH SD (test code = RDW-SD) 44.4 fL 37.0-54.0 N PLATELET COUNT (test code = PLT) 189 x10 3/uL 150-400 N MEAN PLATELET VOLUME (test code = MPV) 10.3 fL 7.0-9.0 H NEUTROPHIL % (test code = NT%) 85.3 % 56.0-77.0 H IMMATURE GRANULOCYTE % (test code = IG%) 0.3 % 0.0-2.0 N LYMPHOCYTE % (test code = LY%) 8.0 % 14.0-32.0 L MONOCYTE % (test code = MO%) 6.2 % 4.8-9.0 N EOSINOPHIL % (test code = EO%) 0.1 % 0.3-3.7 L BASOPHIL % (test code = BA%) 0.1 % 0.0-2.0 N NUCLEATED RBC % (test code = NRBC%) 0.0 % 0-0 N NEUTROPHIL # (test code = NT#) 10.53 x10 3/uL 2.0-7.6 H IMMATURE GRANULOCYTE # (test code = IG#) 0.04 x10 3/uL 0.00-0.03 H LYMPHOCYTE # (test code = LY#) 0.99 x10 3/uL 1.0-3.8 L MONOCYTE # (test code = MO#) 0.76 x10 3/uL 0.1-0.8 N EOSINOPHIL # (test code = EO#) 0.01 x10 3/uL 0.0-0.2 N BASOPHIL # (test code = BA#) 0.01 x10 3/uL 0.0-0.2 N NUCLEATED RBC # (test code = NRBC#) 0.00 x10 3/uL 0.0-0.1 N URINALYSIS [id number] 16:05:00* Test Item Value Reference Range Interpretation Comme nts UA COLOR (test code = COLU) YELLOW YEL/STRAW UA APPEARANCE (test code = APPU) SL CLOUDY CLEAR UA GLUCOSE DIPSTICK (test co de = DGLUU) NEGATIVE NEGATIVE UA BILIRUBIN DIPSTICK (test code = BILU) NEGATIVE NEGATIVE UA KETONE DIPSTICK (test cod e = KETU) NEGATIVE NEGATIVE UA SPECIFIC GRAVITY (test co de = SGU) 1.011 1.005-1.030 N UA BLOOD DIPSTICK (test code = ROXANA) 2+ NEGATIVE A UA PH DIPSTICK (test code = FORREST) 7.0 5.0-7.0 N UA PROTEIN DIPSTICK (test co de = PROU) NEGATIVE NEGATIVE UA UROBILINIOGEN DIPSTICK (t est code = URO) 0.2 mg/dL 0.2-1.0 UA NITRITE DIPSTICK (test co de = CR) POSITIVE NEGATIVE A UA LEUKOCYTE ESTERASE DIPSTI CK (test code = LEUU) 3+ NEGATIVE A UA RBC (test code = RBCU) >50 RBC/HPF 0-3 A UA WBC NO REFLEX (test code = WBCUCL) >50 WBC/HPF 0-3 A UA BACTERIA (test code = BACU) 4+ /HPF NONE SEEN A UA SQUAMOUS CELLS (test code = SQU) 0-5 /HPF NONE SEEN UA GRANULAR CAST (test code = GRANU) >20 /LPF NONE UA MUCUS (test code = MUCU) TRACE /LPF NONE SEEN UA YEAST (BUDDING) (test cod e = YEASTUBD) 2+ /HPF NONE A PROTHROMBIN [id number] 16:00:00* Test Item Value Reference Range Interpretation Comme nts PROTHROMBIN TIME PATIENT (test code = PTP) 10.8 SECONDS 9.3-12.9 N INTERNATIONAL NORMAL RATIO (test code = INR) 1.0 0.8-1.2 N TARGET INR BY INDICATION Indication [...] Infarction (to prevent recurrent infarct). THROMBOPLASTIN TIME [id number] 16:00:00* Test Item Value Reference Range Interpretation Comme nts THROMBOPLASTIN TIME PARTIAL (test code = PTT) 28.5 Seconds 25.0-39.5 N Therapeutic Rang e: 56.0 - 87.0 Seconds Effective 09/02/2024 BASIC METABOLIC [id number] 16:00:00* Test Item Value Reference Range Interpretation Comme nts SODIUM (test code = NA) 143 mEq/L 134-147 N POTASSIUM (test code = K) 4.2 mEq/L 3.4-5.0 N CHLORIDE (test code = CL) 106 mEq/L 100-108 N CARBON DIOXIDE (test code = CO2) 28 mEq/l 21-33 N ANION GAP (test code = GAP) 13 0-20 N GLUCOSE (test code = GLU) 102 mg/dL 77-141 N BLOOD UREA NITROGEN (test code = BUN) 14 mg/dL 7-25 N GLOMERULAR FILTRATION RATE (test code = GFR) 75.0 80-90 L The Glomerular Filtration Rate is [...] 0.6-1.3 N CALCIUM (test code = CA) 9.1 mg/dL 8.0-10.5 N CBC W/AUTO [id number] 15:46:00* Test Item Value Reference Range Interpretation Comme nts WHITE BLOOD CELL (test code = WBC) 7.8 x10 3/uL 4.5-11.0 N RED BLOOD CELL (test code = RBC) 4.71 x10 6/uL 4.00-5.60 N HEMOGLOBIN (test code = HGB) 13.6 g/dL 12.5-16.9 N HEMATOCRIT (test code = HCT) 40.6 % 37.5-50.7 N MEAN CELL VOLUME (test code = MCV) 86.2 fL 81.0-99.0 N MEAN CELL HGB (test code = MCH) 28.9 pg 27.0-33.0 N MEAN CELL HGB CONCETRATION (test code = MCHC) 33.5 g/dL 33.0-37.0 N RED CELL DISTRIBUTION WIDTH CV (test code = RDW) 14.0 % 11.5-14.5 N RED CELL DISTRIBUTION WIDTH SD (test code = RDW-SD) 44.2 fL 37.0-54.0 N PLATELET COUNT (test code = PLT) 214 x10 3/uL 150-400 N MEAN PLATELET VOLUME (test c ode = MPV) 10.6 fL 7.0-9.0 H NEUTROPHIL % (test code = NT%) 75.3 % 56.0-77.0 N IMMATURE GRANULOCYTE % (test code = IG%) 0.4 % 0.0-2.0 N LYMPHOCYTE % (test code = LY%) 16.0 % 14.0-32.0 N MONOCYTE % (test code = MO%) 5.7 % 4.8-9.0 N EOSINOPHIL % (test code = EO%) 2.0 % 0.3-3.7 N BASOPHIL % (test code = BA%) 0.6 % 0.0-2.0 N NUCLEATED RBC % (test code = NRBC%) 0.0 % 0-0 N NEUTROPHIL # (test code = NT#) 5.89 x10 3/uL 2.0-7.6 N IMMATURE GRANULOCYTE # (test code = IG#) 0.03 x10 3/uL 0.00-0.03 N LYMPHOCYTE # (test code = LY#) 1.25 x10 3/uL 1.0-3.8 N MONOCYTE # (test code = MO#) 0.45 x10 3/uL 0.1-0.8 N EOSINOPHIL # (test code = EO#) 0.16 x10 3/uL 0.0-0.2 N BASOPHIL # (test code = BA#) 0.05 x10 3/uL 0.0-0.2 N NUCLEATED RBC # (test code = NRBC#) 0.00 x10 3/uL 0.0-0.1 N - CT ABD PELVIS [id number] 13:00[facility]00 [facility] 1960 Sex: M Name: MATHEW CASTILLO [facility] : 1960 Age/S: 62 / M [address] [place] [address] Bl Unit #: [id number] Loc: [place] [address] Phys: Sofia Cheng MECHANICAL SYSTEMS DESIGNER Acct: [id number] Dis Date:Status: ADM IN PHONE #: [phone] Exam Date: 01/22/2023 1231 FAX #: [phone] Reason: ABD PAIN EXAMS: CPT CODE: [id number] CT ABD PELVIS W/CONT 21646 EXAM: CT abdomen and pelvis with contrast Dictation location: E5 INDICATION: Abdominal pain COMPARISON: CT abdomen and pelvis on 01/20/2023 TECHNIQUE: Axial images of the abdomen and pelvis were obtained with 100 mL Isovue-300 IV contrast. Unless otherwise specified, incidental findings do not require dedicated imaging follow-up. Coronal and sagittal reformatted images were performed. Estimated GFR is greater than 60. DISCUSSION: Lower tho rax: A small right pleural effusion is noted, [...] Signed Report (CONTINUED) Name: MATHEW CASTILLO [facility] : 1960 Age/S: 62 / M [address] [place] [address] Blvd Unit #: [id number] Loc: [place] [address] Phys: Sofia Cheng MECHANICAL SYSTEMS DESIGNER Acct: [id number] Dis Date: Status: ADM IN PHONE #: [phone] Exam Date: 01/22/2023 1231 FAX #: [phone] Reason: ABD PAIN EXAMS: CPT CODE:[id number] CT ABD PELVIS W/CONT 50287 (Continued) abdominal aortic aneurysm. Pelvic organs/bladder: Moderate to marked prostatomegaly. A Mercer catheter also decompresses the bladder. Bowel: No abnormal bowel wall thickening or evidence of obstruction. The appendix is normal. Bones/soft tissues: No fracture or bony mass lesion. No hernia is seen. IMPRESSION: 1. Moderate bilateral hydroureteronephrosis at the level of the bladder. There is moderate to marked prostatomegaly. These findings could beon the basis of chronic bladder outlet obstruction. Prominent right perinephric fat stranding continuing inferiorly adjacent to the right ureter is similar compared to the previous exam, possibly related to forniceal rupture. A Mercer catheter mostly decompresses the bladder. 2. Additional findings include a small right pleural effusion with adjacent mild compressive atelectasis of the right lowerlobe, a small to moderate size hiatal hernia, and moderate to marked prostatomegaly. One or more ofthe following dose reduction techniques were used: Automated exposure control, adjustment of the mA and/or kV according to patient size, and/or utilization of iterative reconstruction technique. DLP:264 mGy-cm CTDI: 212 mGy at 1300 Reported and signed by: John Berumen M.D. CC: Lakhwinder Guillermo MD; Sofia Cheng MECHANICAL SYSTEMS DESIGNER; Salinas Dukes MD Technologist:Rick Moran Jr, RT(R)(CT) CTDI: DLP: Trnscb Date/Time: 01/22/2023 (1300) t.TUNGR.BC0 Orig Print D/T: S: 01/22/2023 (0028) PAGE 2 Signed ReportBASIC METABOLIC [id number] 07:46:00* Test Item Value Reference Range Interpretation Comme nts SODIUM (test code = NA) 137 mEq/L 134-147 N POTASSIUM (test code = K) 4.1 mEq/L 3.4-5.0 N CHLORIDE (test code = CL) 104 mEq/L 100-108 N CARBON DIOXIDE (test code = CO2) 25 mEq/l 21-33 N ANION GAP (test code = GAP) 12 0-20 N GLUCOSE (test code = GLU) 102 mg/dL 77-141 N NOTE: NEW NORMAL RANGE BLOOD UREA NITROGEN (test code = BUN) 24 mg/dL 7-25 NOTE: NEW NORM AL RANGE GLOMERULAR FILTRATION [...] code = CA) 7.4 mg/dL 8.0-10.5 L [id number] 07:46:00* Test Item Value Reference Range Interpretation Comme nts PHOSPHOROUS (test code = PHOS) 2.4 MG/DL 2.5-4.9 L [id number] 07:46:00* Test Item Value Reference Range Interpretation Comme nts MAGNESIUM (test code = MAG) 1.69 mg/dL 1.6-2.6 N NOTE: NEW NORMAL RANGE CBC W/AUTO [id number] 07:05:00* Test Item Value Reference Range Interpretation [...] 0.00 x10 3/uL 0.0-0.1 N BASIC METABOLIC [id number] 06:08:00* Test Item Value Reference Range Interpretation [...] CA) 8.2 mg/dL 8.0-10.5 N CBC W/AUTO [id number] 05:57:00* Test Item Value Reference Range Interpretation [...] c ode = MDIFF) NO CBC W/AUTO [id number] 08:15:00* Test Item Value Reference Range Interpretation [...] 0.00 x10 3/uL 0.0-0.1 N BASIC METABOLIC [id number] 07:28:00* Test Item Value Reference Range Interpretation [...] CA) 8.6 mg/dL 8.0-10.5 N BASIC METABOLIC [id number] 07:46:00* Test Item Value Reference Range Interpretation [...] CA) 8.7 mg/dL 8.0-10.5 N CBC W/AUTO [id number] 07:34:00* Test Item Value Reference Range Interpretation [...] 0.00 x10 3/uL 0.0-0.1 N CBC W/AUTO [id number] 08:43:00* Test Item Value Reference Range Interpretation [...] c ode = MDIFF) NO BASIC METABOLIC [id number] 07:14:00* Test Item Value Reference Range Interpretation [...] CA) 7.8 mg/dL 8.0-10.5 L CBC W/AUTO [id number] 08:58:00* Test Item Value Reference Range Interpretation [...] c ode = MDIFF) NO BASIC METABOLIC [id number] 08:27:00* Test Item Value Reference Range Interpretation [...] HGBA1C%) 5.1 %A1C 4.8-6.0 N CBC W/AUTO [id number] 08:05:00* Test Item Value Reference Range Interpretation [...] (test code = MDIFF) NO BASIC METABOLIC [id number] 07:46:00* Test Item Value Reference Range Interpretation [...] = LDL) 104.0 mg/dL 0-100 H <100 DEQJGNN88 0-129 NEAR OPTIMAL/ABOVE [id number] [id number] HIGH>YU=273 VERY HIGH*Guidelines provided by the National Cholesterol EducationProgram Adult Treatment Panel III [id number] 07:46:00* Test Item Value Reference Range Interpretation Comme nts PHOSPHOROUS (test code = PHOS) 3.4 MG/DL 2.5-4.9 N [id number] 07:46:00* Test Item Value Reference Range Interpretation Comme nts MAGNESIUM (test code = MAG) 1.69 mg/dL 1.6-2.6 N NOTE: NEW NORMAL RANGE TSH REFLEX TO [id number] 07:46:00* Test Item Value Reference Range Interpretation Comme nts TSH REFLEX TO FT4 (test code = TSHREFLEX) 2.37 IU/mL 0.42-5.47 N LACTIC [id number] 05:48:00* Test Item Value Reference Range Interpretation Comme nts LACTIC ACID (test code = LACT) 1.1 mmol/L 0.4-1.9 N LACTIC ACID [id number] 02:38:00* Test Item Value Reference Range Interpretation Comme nts LACTIC ACID REPEAT (test cod e = LACTR) 0.9 mmol/l 0.4-1.9 N CALLED SEVERINO @01:18 TO REMIND WE NEEDED REPEATLACTIC [id number] 22:36:00* Test Item Value Reference Range Interpretation Comme nts LACTIC ACID (test code = LACT) 2.9 mmol/L 0.4-1.9 H UA RFLX MICR CULT IF [id number] 22:35:00* Test Item Value Reference Range Interpretation [...] for culture: Flank PainSpecimen Description: INDWELLING CATH (MERCER)Cath Status: Less than 14 days- CT ABD PELVIS [id number] 22:24:00 [facility]: MATHEW CASTILLO SINC[facility] : 1960 Sex: M Name: MATHEW CASTILLO [facility] : 1960 Age/S: 62 / M [address] [place] [address] Blvd Unit #: [id number] Loc: [place] [address] Phys: Vee Horton Acct: [id number] Dis Date: Status: REG ER PHONE #: [phone] Exam Date: 01/04/2023 0940 FAX #: [phone] Reason:GROSS HEMATURIA EXAMS: CPT CODE: [id number] CT ABD PELVIS W/CONT 20488 H 20 TIME OF STUDY: 01/04/2023 7:55 [...] distended. There is cholelithiasis present. The liver, pa ncreas, kidneys, adrenal glands and spleen all have normal appearance. There is no mesenteric or retroperitoneal adenopathy. The bowel loops are nondilated. A normal appendix is visualized. There is no free fluid or free air. The osseous structures are age-appropriate. CT Pelvis: Bladder is decompressed with a Mercer in place which significantly limits evaluation. The prostate gland is severely enlarged measuring approximately 7.4 x 6.2 cm in maximum dimension. Surgical clips are noted in the prostate. IMPRESSION: 1. Prostatomegaly. Decompressed bladder with a Mercer in place. 2. No hydronephrosis. No enhancing renal masses. 3. Cholelithiasis and mildly distended gallbladder. 4. Moderate hiatal hernia. PAGE 1 Signed Report (CONTINUED) Name: ANNAMATHEW ISNCERE [facility] : 1960 Age/S: 62 / M [address] [place] [address] Blvd Unit #: [id number] Loc: [place] [address] Phys: Vee Horton APRNNP Acct: [id number] Dis Date: Status: REG ER PHONE #: [phone] Exam Date: 01/04/2023 0940 FAX #: [phone] Reason: GROSS HEMATURIA EXAMS: CPT CODE: [id number] CT ABD PELVIS W /CONT 21834 (Continued) at 2224 Reported and signed by: Zia Magaña M.D. CC: Lakhwinder Guillermo MD; Vee Horton; Javier Sullivan MD Technologist:Latoya Moeller RT(R); Lesvia Humphries CTDI: DLP: Trnscb Date/Time: 01/04/2023 (2223) t.TUNGR.SI1 Orig Print D/T: S: 01/04/2023 (3150) PAGE 2 Signed ReportCOMPREHENSIVE METABOLIC [id number] 21:07:00* Test Item Value Reference Range Interpretation [...] ALKP) 60 IUnit/L 20-125 N CBC W/AUTO [id number] 20:38:00* Test Item Value Reference Range Interpretation [...] (test code = MDIFF) NO BASIC METABOLIC [id number] 08:30:00* Test Item Value Reference Range Interpretation Comme nts SODIUM (test code = NA) 140 mEq/L 134-147 N POTASSIUM (test code = K) 2.8 mEq/L 3.4-5.0 LL Critical result [place] [address]/16/22Nurse read back resut and tech confirmed it's correct? Y CHLORIDE (test code = CL) 114 mEq/L 100-108 H CARBON DIOXIDE (test code = CO2) 18 mEq/l 21-33 L ANION GAP (test code = GAP) 11 0-20 N GLUCOSE (test code = GLU) 643 mg/dL 70-110 HH Critical result [place] [address]/16/22Nurse read back resut and tech [...] reported result: 4.9 mg/dLEdited by: KRISTEN on 10/31/22: 0829: CA previously reported as: 4.9 *L mg/dL Critical [place] [address]/16/22 Nurse read back result and tech confirmed it's correct? Y GLUCOSE [id number] 17:27:00* Test Item Value Reference Range Interpretation Comme [facility] GLUCOSE BEDSIDE (test code = GLUBED) 109 MG/DL 70-110 N Performed by [employer] mitering machine operator at [facility] GLUCOSE [id number] 12:34:00* Test Item Value Reference Range Interpretation Comme [facility] GLUCOSE BEDSIDE (test code = GLUBED) 95 MG/DL 70-110 N Performed by [employer] mitering machine operator at [facility] GLUCOSE [id number] 08:49:00* Test Item Value Reference Range Interpretation Comme [facility] GLUCOSE BEDSIDE (test code = GLUBED) 117 MG/DL 70-110 H Performed by [employer] mitering machine operator at [facility] BASIC METABOLIC [id number] 07:57:00* Test Item Value Reference Range Interpretation [...] = CA) 8.1 mg/dL 8.0-10.5 N GLUCOSE [id number] 17:07:00* Test Item Value Reference Range Interpretation Comme nts GLUCOSE BEDSIDE (test code = GLUBED) 127 MG/DL 70-110 H Performed by cer tified mitering machine operator at [facility] GLUCOSE [id number] 12:26:00* Test Item Value Reference Range Interpretation Comme nts GLUCOSE BEDSIDE (test code = GLUBED) 123 MG/DL 70-110 H Performed by [employer] mitering machine operator at [facility] GLUCOSE [id number] 07:59:00* Test Item Value Reference Range Interpretation Comme nts GLUCOSE BEDSIDE (test code = GLUBED) 92 MG/DL 70-110 N Performed by [employer] mitering machine operator at [facility] BASIC METABOLIC [id number] 07:38:00* Test Item Value Reference Range Interpretation [...] CA) 7.8 mg/dL 8.0-10.5 L CBC W/AUTO [id number] 07:27:00* Test Item Value Reference Range Interpretation [...] REQUIRED (test code = MDIFF) NO GLUCOSE [id number] 21:25:00* Test Item Value Reference Range Interpretation Comme nts GLUCOSE BEDSIDE (test code = GLUBED) 154 MG/DL 70-110 H Performed by cer tified mitering machine operator at [facility] GLUCOSE [id number] 17:43:00* Test Item Value Reference Range Interpretation Comme nts GLUCOSE BEDSIDE (test code = GLUBED) 73 MG/DL 70-110 N Performed by cer tified mitering machine operator at [facility] GLUCOSE [id number] 10:08:00* Test Item Value Reference Range Interpretation Comme nts GLUCOSE BEDSIDE (test code = GLUBED) 87 MG/DL 70-110 N Performed by cer tified mitering machine operator at [facility] GLUCOSE [id number] 20:12:00* Test Item Value Reference Range Interpretation Comme nts GLUCOSE BEDSIDE (test code = GLUBED) 139 MG/DL 70-110 H Performed by cer tified mitering machine operator at [facility] GLUCOSE [id number] 17:32:00* Test Item Value Reference Range Interpretation Comme nts GLUCOSE BEDSIDE (test code = GLUBED) 79 MG/DL 70-110 N Performed by cer tified mitering machine operator at [facility] GLUCOSE [id number] 12:14:00* Test Item Value Reference Range Interpretation Comme nts GLUCOSE BEDSIDE (test code = GLUBED) 98 MG/DL 70-110 N Performed by cer tified mitering machine operator at [facility] GLUCOSE [id number] 08:36:00* Test Item Value Reference Range Interpretation Comme nts GLUCOSE BEDSIDE (test code = GLUBED) 92 MG/DL 70-110 N Performed by cer tified mitering machine operator at [facility] BASIC METABOLIC [id number] 07:50:00* Test Item Value Reference Range Interpretation [...] code = CA) 7.6 mg/dL 8.0-10.5 L [id number] 07:50:00* Test Item Value Reference Range Interpretation Comme nts MAGNESIUM (test code = MAG) 1.53 mg/dL 1.80-2.40 L - CTA CHEST FOR [id number] 00:00:00 [facility] MATHEW CASTILLO : 1960 Sex: M Name: MATHEW CASTILLO [facility] [place] : 1960 Age/S: 62 / M [address] [place] [address] Blvd Unit #: [id number] Loc: [place] [address] Phys: Sofia Cheng MECHANICAL SYSTEMS DESIGNER Acct: [id number] Dis Date: Status: ADM IN PHONE #: [phone] Exam Date: 10/23/2022 1724 FAX #: [phone] Reason: ELEVATED D DIMER EXAMS: CPT CODE: [id number] [place] [address] PROCEDURE INFORMATION: Exam: CTA ChestWith Contrast Exam [...] size (includes targeted exams where dose is matchedto clinical indication); or iterative reconstruction. Contrast material: [...] is recommended to help exclude an infiltrating mucosalprocess. Extensive colonic wall thickening of the visualized splenic flexure compatible with colitis incompletely evaluated. Bones/joints: Unremarkable. No acute fracture. Soft tissues: Unremarkable.Other findings: Thoracic spurring. IMPRESSION: 1. No pulmonary embolus. 2. Extensive colonic wall thickening of the visualized splenic PAGE 1 Signed Report (CONTINUED) Name: MATHEW CASTILLO [facility] : 1960 Age/S: 62 / M [address] [place] [address] Blvd Unit #: [id number] Loc: [place] [address] Phys: Sofia Cheng NP Acct: [id number] Dis Date: Status: ADM IN PHONE #: [phone] Date: 10/23/2022 1724 FAX #: [phone] Reason: ELEVATED D DIMER EXAMS: CPT CODE: [id number] [place] [address] (Continued) flexure compatible with colitis incompletely evaluated. [...] by: Hayden Rg M.D. CC: Sofia Cheng MECHANICAL SYSTEMS DESIGNER; Salinas Dukes MD Technologist:Latoya Pérez, RT(R)(CT); . CTDI: DLP: Trnscb Date/Time: 10/23/2022 (2012) [id number] Orig Print D/T: S: 10/23/2022 (2012) PAGE 2 Signed ReportGLUCOSE [id number] 20:23:00* Test Item Value Reference Range Interpretation Comme nts GLUCOSE BEDSIDE (test code = GLUBED) 123 MG/DL 70-110 H Performed by cer tified mitering machine operator at [facility] GLUCOSE [id number] 17:34:00* Test Item Value Reference Range Interpretation Comme nts GLUCOSE BEDSIDE (test code = GLUBED) 132 MG/DL 70-110 H Performed by cer tified mitering machine operator at [facility] GLUCOSE [id number] 11:57:00* Test Item Value Reference Range Interpretation Comme nts GLUCOSE BEDSIDE (test code = GLUBED) 118 MG/DL 70-110 H Performed by [facility] tified mitering machine operator at [facility] GLUCOSE [id number] 08:22:00* Test Item Value Reference Range Interpretation Comme nts GLUCOSE BEDSIDE (test code = GLUBED) 100 MG/DL 70-110 N Performed by [facility] tified mitering machine operator at [facility] BASIC METABOLIC [id number] 08:05:00* Test Item Value Reference Range Interpretation [...] code = CA) 7.8 mg/dL 8.0-10.5 L [id number] 08:05:00* Test Item Value Reference Range Interpretation Comme nts MAGNESIUM (test code = MAG) 1.72 mg/dL 1.80-2.40 L GLUCOSE [id number] 21:10:00* Test Item Value Reference Range Interpretation Comme nts GLUCOSE BEDSIDE (test code = GLUBED) 148 MG/DL 70-110 H Performed by cer tified mitering machine operator at [facility] GLUCOSE [id number] 17:29:00* Test Item Value Reference Range Interpretation Comme nts GLUCOSE BEDSIDE (test code = GLUBED) 102 MG/DL 70-110 N Performed by cer tified mitering machine operator at [facility] GLUCOSE [id number] 11:54:00* Test Item Value Reference Range Interpretation Comme nts GLUCOSE BEDSIDE (test code = GLUBED) 104 MG/DL 70-110 N Performed by cer tified mitering machine operator at [facility] CBC W/MANUAL [id number] 10:35:00* Test Item Value Reference Range Interpretation [...] (test code = PLTMORPH) LARGE PLATELETS GLUCOSE [id number] 07:57:00* Test Item Value Reference Range Interpretation Comme nts GLUCOSE BEDSIDE (test code = GLUBED) 95 MG/DL 70-110 N Performed by cer violeta mitering machine operator at [facility] C REACTIVE [id number] 07:48:00* Test Item Value Reference Range Interpretation Comme nts C REACTIVE PROTEIN (test cod e = CRP) 36.0 mg/L <10.0 H BASIC METABOLIC [id number] 07:40:00* Test Item Value Reference Range Interpretation [...] code = CA) 7.3 mg/dL 8.0-10.5 L [id number] 07:40:00* Test Item Value Reference Range Interpretation Comme nts MAGNESIUM (test code = MAG) 1.50 mg/dL 1.80-2.40 L [id number] 07:04:00* Test Item Value Reference Range Interpretation Comme nts D-DIMER (test code = DDIMER) 5949 ng/mlFEU See_Comment HH Critical result called to Brigido RUIZLAB.JJ1 at 0710/21/22Nurse read back result and tech confirmed it's correct? YESTHROMBOSIS AND/OR PULMONARY EMBOLISM AND THE CLINICAL CUT- OFF VALUE FOR EXCLUSION (500 ng/mL FEU) OF THESE CONDITIONSIS VALIDATED BY THE ONLINE PRODUCER OF THE METHOD. A NEGATIVE D-DIMER RESULT [...] this result as normal/abnormal. - DUP VEIN [id number] 00:00:00 [facility] 1960 Sex: M Name: MATHEW CASTILLO [facility] : 1960 Age/S: 62 / M [address] [facility] Unit #: [id number] Loc: [place] [address] Phys: Skip Jaffe MD Acct: [id number] Dis Date: Status: ADM IN PHONE #: [phone] Exam Date: 10/21/2022820 FAX #: [phone] Reason: R/o DVT EXAMS: CPT CODE: [id number] DUP VEIN ASAEL 37922 PROCEDURE INFORMATION: Exam: US Duplex Lower ExtremityVeins, [...] lower extremity veins. COMPARISON: CT CHEST W/CONTRAST, CTABD PELVIS W/CONT 10/15/2022 9:14 PM FINDINGS: Right [...] Salinas Dukes MD Technologist: [facility] Date/Time: 10/21/2022 (911) KemAB61 Orig Print D/T: S: 10/21/2022 (911) Probe: PAGE 1 Signed Report GLUCOSE [id number] 20:40:00* Test Item Value Reference Range Interpretation Comme nts GLUCOSE BEDSIDE (test code = GLUBED) 148 MG/DL 70-110 H Performed by cer tified mitering machine operator at [facility] GLUCOSE [id number] 16:46:00* Test Item Value Reference Range Interpretation Comme [facility] GLUCOSE BEDSIDE (test code = GLUBED) 122 MG/DL 70-110 H Performed by cer tified mitering machine operator at [facility] TROP-I HIGH [id number] 15:04:00* Test Item Value Reference Range Interpretation Comme [facility] TROP-I HIGH SENSITIVITY (test code = [...] the URL. These results were obtained using [employer] IM TnIHreagent. Results from different methodologies should not becompared to one another as quantitative results and URLs mayvary by method. BASIC METABOLIC [id number] 15:04:00* Test Item Value Reference Range Interpretation Comme [facility] SODIUM (test code = NA) 138 [...] CA) 7.1 mg/dL 8.0-10.5 L TROP-I HIGH [id number] 10:07:00* Test Item Value Reference Range Interpretation [...] URL. These results were obtained using [employer] IM TnIHreagent. Results from different methodologies should not becompared to one another as quantitative results and URLs mayvary by method. CBC W/AUTO [id number] 09:54:00* Test Item Value Reference Range Interpretation [...] (test code = MDIFF) NO TROP-I HIGH [id number] 09:24:00* Test Item Value Reference Range Interpretation [...] high sensitivitytroponin from other clinical conditions, the Universal Definition of Myocardial Infarction stressesclinical assessment and the demonstration of a rise and/orfall in serial troponin results above the URL. These results were obtained using [employer] TnIHreagent. Results from different methodologies should not becompared to one another as quantitative results and URLs mayvary by method. GLUCOSE [id number] 08:49:00* Test Item Value Reference Range Interpretation Comme nts GLUCOSE BEDSIDE (test code = GLUBED) 102 MG/DL 70-110 N [facility] [facility] COMPREHENSIVE METABOLIC [id number] 02:08:00* Test Item Value Reference Range Interpretation [...] code = ALKP) 47 IUnit/L 20-125 N [id number] 02:08:00* Test Item Value Reference Range Interpretation Comme [facility] LIPASE (test code = LIP) 57 U/L 13-57 N PROTHROMBIN [id number] 02:05:00* Test Item Value Reference Range Interpretation [...] Infarction (to prevent recurrent infarct). THROMBOPLASTIN TIME [id number] 02:05:00* Test Item Value Reference Range Interpretation Comme nts THROMBOPLASTIN TIME PARTIAL (test code = PTT) 26.1 Seconds 25.0-39.5 N Therapeutic Rang e: 50.4 - 88.3 Seconds Effective 07/21/2018 LACTIC [id number] 01:59:00* Test Item Value Reference Range Interpretation Comme nts LACTIC ACID (test code = LACT) 1.1 mmol/L 0.4-1.9 N CBC W/AUTO [id number] 01:51:00* Test Item Value Reference Range Interpretation [...] = MDIFF) NO - XR CHEST 1 [id number] 00:00:00 [facility] 1960 Sex: M FAX: Sofia Cheng NP [phone] [place]: St: ADM FAX: [place] I [phone] Name: MATHEW CASTILLO [facility] : 1960 Age/S: 62/M [address] [place] [address] Bl Unit #: [id number] Loc: G.[address] [place] [address] Phys: Sofia Cheng NP Acct: [id number] Dis Date: Status: ADM IN PHONE #: [phone] Exam Date: 10/20/2022106 FAX #: [phone] Reason: Sepsis EXAMS: CPT CODE: [id number] XR CHEST 1 V 25621 PROCEDURE INFORMATION: Exam: XR Chest Exam date [...] By: [email or web address] Orig Print D/T: S: 10/20/2022 (0216) PAGE 1 Signed ReportGLUCOSE [id number] 21:00:00* Test Item Value Reference Range Interpretation Comme nts GLUCOSE BEDSIDE (test code = GLUBED) 135 MG/DL 70-110 H Performed by cer tified mitering machine operator at [facility] URINALYSIS [id number] 20:03:00* Test Item Value Reference Range Interpretation [...] MUCU) 1+ /LPF NONE SEEN UR SODIUM [id number] 20:03:00* Test Item Value Reference Range Interpretation Comme nts UR SODIUM RANDOM (test code = ALPHONSE) 102 MEQ/L The Reference Ra nge and Method Performance specificationshave not been established for this fluid. The test resultshould be correlated into the clinical context forinterpretation. UR PROTEIN [id number] 20:03:00* Test Item Value Reference Range Interpretation Comme nts UR PROTEIN RANDOM (test code = PROTU) 79 mg/dL UR CREATININE [id number] 20:03:00* Test Item Value Reference Range Interpretation Comme nts UR CREATININE RANDOM (test code = CREATU) 111.9 mg/dL The Reference Ra nge and Method Performance specificationshave not been established for this fluid. The test resultshould be correlated into the clinical context forinterpretation. UR OSMOLALITY [id number] 20:03:00* Test Item Value Reference Range Interpretation Comme nts UR OSMOLALITY RANDOM (test c ode = OSMOU) 575 MOS/KG 300-1000 UR OSMOLALITY [id number] 20:02:00* Test Item Value Reference Range Interpretation Comme nts UR OSMOLALITY RANDOM (test c ode = OSMOU) 575 MOS/KG 300-1000 N GLUCOSE [id number] 17:18:00* Test Item Value Reference Range Interpretation Comme nts GLUCOSE BEDSIDE (test code = GLUBED) 122 MG/DL 70-110 H Performed by cer tified mitering machine operator at [facility] GLUCOSE [id number] 12:48:00* Test Item Value Reference Range Interpretation Comme nts GLUCOSE BEDSIDE (test code = GLUBED) 109 MG/DL 70-110 N Performed by cer tified mitering machine operator at [facility] GLUCOSE [id number] 07:53:00* Test Item Value Reference Range Interpretation Comme nts GLUCOSE BEDSIDE (test code = GLUBED) 96 MG/DL 70-110 N Performed by cer tified mitering machine operator at [facility] BASIC METABOLIC [id number] 07:51:00* Test Item Value Reference Range Interpretation [...] code = CA) 7.5 mg/dL 8.0-10.5 L [id number] 07:51:00* Test Item Value Reference Range Interpretation Comme nts MAGNESIUM (test code = MAG) 1.65 mg/dL 1.80-2.40 L CBC W/AUTO [id number] 07:07:00* Test Item Value Reference Range Interpretation [...] (test c ode = MDIFF) NO GLUCOSE [id number] 20:44:00* Test Item Value Reference Range Interpretation Comme nts GLUCOSE BEDSIDE (test code = GLUBED) 116 MG/DL 70-110 H Performed by [facility] tified mitering machine operator at [facility] GLUCOSE [id number] 18:07:00* Test Item Value Reference Range Interpretation Comme nts GLUCOSE BEDSIDE (test code = GLUBED) 98 MG/DL 70-110 N Performed by [employer] mitering machine operator at [facility] GLUCOSE [id number] 12:23:00* Test Item Value Reference Range Interpretation Comme nts GLUCOSE BEDSIDE (test code = GLUBED) 135 MG/DL 70-110 H Performed by [employer] mitering machine operator at [facility] GLUCOSE [id number] 11:22:00* Test Item Value Reference Range Interpretation Comme nts GLUCOSE BEDSIDE (test code = GLUBED) 104 MG/DL 70-110 N Performed by [employer] mitering machine operator at [facility] BASIC METABOLIC [id number] 08:12:00* Test Item Value Reference Range Interpretation [...] code = CA) 7.4 mg/dL 8.0-10.5 L [id number] 08:12:00* Test Item Value Reference Range Interpretation Comme nts MAGNESIUM (test code = MAG) 1.48 mg/dL 1.80-2.40 L CBC W/AUTO [id number] 08:09:00* Test Item Value Reference Range Interpretation [...] (test c ode = MDIFF) NO GLUCOSE [id number] 05:56:00* Test Item Value Reference Range Interpretation Comme nts GLUCOSE BEDSIDE (test code = GLUBED) 104 MG/DL 70-110 N Performed by cer tified mitering machine operator at [facility] GLUCOSE [id number] 03:31:00* Test Item Value Reference Range Interpretation Comme nts GLUCOSE BEDSIDE (test code = GLUBED) 129 MG/DL 70-110 H Performed by cer tified mitering machine operator at [facility] GLUCOSE [id number] 12:50:00* Test Item Value Reference Range Interpretation Comme nts GLUCOSE BEDSIDE (test code = GLUBED) 177 MG/DL 70-110 H Performed by cer tified mitering machine operator at [facility] CBC W/AUTO [id number] 10:14:00* Test Item Value Reference Range Interpretation [...] 0.00 x10 3/uL 0.0-0.1 N VITAMIN D [id number] 08:19:00* Test Item Value Reference Range Interpretation Comme nts VITAMIN D 25-HYDROXY (test c ode = VITD25) 25.5 ng/mL 30-100 L Indication for Test: PTH DisorderCOMPREHENSIVE METABOLIC [id number] 08:14:00* Test Item Value Reference Range Interpretation [...] code = ALKP) 62 IUnit/L 20-125 N [id number] 08:14:00* Test Item Value Reference Range Interpretation Comme nts PHOSPHOROUS (test code = PHOS) 2.6 MG/DL 2.5-4.9 N [id number] 08:14:00* Test Item Value Reference Range Interpretation Comme nts MAGNESIUM (test code = MAG) 1.50 mg/dL 1.80-2.40 L GLUCOSE [id number] 07:40:00* Test Item Value Reference Range Interpretation Comme nts GLUCOSE BEDSIDE (test code = GLUBED) 105 MG/DL 70-110 N Performed by cer tified mitering machine operator at [facility] GLUCOSE [id number] 17:26:00* Test Item Value Reference Range Interpretation Comme nts GLUCOSE BEDSIDE (test code = GLUBED) 113 MG/DL 70-110 H Performed by [employer] mitering machine operator at [facility] PROTHROMBIN [id number] 15:23:00* Test Item Value Reference Range Interpretation Comme [facility] PROTHROMBIN TIME PATIENT (test code = [...] (to prevent recurrent infarct). TSH REFLEX TO [id number] 14:32:00* Test Item Value Reference Range Interpretation Comme nts TSH REFLEX TO FT4 (test code = TSHREFLEX) 1.59 IU/mL 0.42-5.47 N [id number] 14:19:00* Test Item Value Reference Range Interpretation Comme nts HGBA1C% (test code = HGBA1C%) 5.5 %A1C 4.8-6.0 N [id number] 14:13:00* Test Item Value Reference Range Interpretation Comme nts MAGNESIUM (test code = MAG) 1.91 mg/dL 1.80-2.40 N COMPREHENSIVE METABOLIC [id number] 14:13:00* Test Item Value Reference Range Interpretation [...] = ALKP) 62 IUnit/L 20-125 N GLUCOSE [id number] 12:54:00* Test Item Value Reference Range Interpretation Comme nts GLUCOSE BEDSIDE (test code = GLUBED) 102 MG/DL 70-110 N Performed by cer tified mitering machine operator at [facility] GLUCOSE [id number] 10:14:00* Test Item Value Reference Range Interpretation Comme nts GLUCOSE BEDSIDE (test code = GLUBED) 110 MG/DL 70-110 N Performed by cer tified mitering machine operator at [facility] CBC W/AUTO [id number] 05:58:00* Test Item Value Reference Range Interpretation [...] 0.0-0.1 N Notes Date/Time Note Provider Source 2024-10-18 11:35:00 [id number] [place] [address] PATIENT NAME: MATHEW CASTILLO ADMIT DATE: 10/01/24 ACCOUNT NO: [id number] ROOM NO: [id number] AGE: 64 REPORT TYPE: 360 - QUERY RESPONSE DOCUMENT SEX: M ADMITTING PHYSICIAN:Pablo Cano MD ATTENDING PHYSICIAN:Darlene Cummins MD Provider Query QUERY TEXT: Relationship Diagnoses General 360MD Query related questions should be directed to: [facility] Coding Helpline Please clarify the relationship, if any, between [Gross hematuria] and [Recent TURP Procedure]. The patient's Clinical Indicators include: 64-year-old male, history of hypertension.Patient was recently in the hospitalfor BPH, status post TURP.Patient was seen and evaluated at [facility] ER, there was found to have urinary retention, had a Mercer placed, with gross hematuria.-ED PHYSICIAN RECORD 2024 64-year-old male, history of hypertension.Patient was recently in the hospital for BPH, status post TURP-ED PHYSICIAN RECORD 2024 Patient had a TURP on Friday by Dr. Del Toro was discharged on the with a Mercer.-Hospitalist Progress Note 10/02/2024 Promethazine 25 mg/1 mL Inj-MAR Options provided: -- Yes -- No -- Other - I will add my own diagnosis -- Disagree - Not applicable / Not valid -- Disagree - Clinically unable to determine / Unknown -- Assign to another provider QUERY RESPONSE: Yes, I am in agreement with the cause/effect relationship between the diagnosis documented above. Query created by: Gary Ying on 10/07/2024 3:27 AM at 1135 PATIENT NAME: MATHEW CASTILLO [facility] 2024-10-05 16:48:00 [facility] Hospitalist Discharge Summary REPORT#:[id number] REPORT STATUS: Signed REPORT INITIALIZATION DATE:10/05/24 TIME: 1647 PATIENT: MATHEW CASTILLO UNIT #: [id number] ROOM/BED: [place] [address] : [birth year] AGE: 64 SEX: M ATTEND: Darlene Cummins MD ADM AUTHOR: Pablo Davenport MD R1 REPT SERVICE DT/TIME: 10/05/241647 * ALL edits or amendments must be made on the electronic/computer document * Pablo Davenport 10/05/24 1648: General Information Discharge date: 10/05/24 Discharge diagnosis: SBO Hospital course: 64-year-old male, history of recent TURP came to ED with c/o urinary retention, obstruction was seen at the ER in [facility], where they were able to place a Mercer. #SBO KUB Advance to regular diet Encourage activity GEN surge consulted Monitor Nursing to assist with ambulation and assist in getting patient to chair PT OT #Hematuria status post TURP Monitor hemoglobin Urology consulted management per them CBI discontinued per urology #Schizophrenia Continue home meds #Hypertension No home meds for blood pressure. Monitor for now and consider starting BP medications tomorrow #BPH Continue home meds Diet: Advance to regular diet DVT PPx: SCDs GI PPx: None Bowel regimen: Miralax PRN Dispo: Case management consulted for SNF 10/02/24 Ileus/SBO: still nauseous, +gas, no BM - repeat KUB - advance diet as per surgery Hematuria post TURP/BPH - continue CBI as per Urology - urine now clear - continue oxybutynin, Flomax Schizophrenia- continue Haldol HTN: no home meds noted, continue prn hydralazine. Per record review, pt is not home medications for HTN and did not require them when admitted for TURP. To avoid orthostasis, will not start BP meds at this time and use prn medications. BP likely elevated related to anxiety and hospital admission. BPH medications will likely have a BP lowering effect once taken. Pt. condition on discharge: improved Med Rec Med Rec Discharge meds: Continue taking these medications: BENZTROPINE (BENZTROPINE) 0.5 MG TAB 1 MILLIGRAM ORAL BEDTIME. HALOPERIDOL (HALDOL) 10 MG TAB 15 MILLIGRAM ORAL TWICE DAILY. TAMSULOSIN ER (TAMSULOSIN ER) 0.4 MG CAP.SR.24H 0.4 MILLIGRAM ORAL DAILY. hydrOXYzine PAMOATE (VISTARIL) 50 MG CAP 50 MILLIGRAM ORAL THREE TIMES A DAY. KETOROLAC (TORADOL) 10 MG TAB 10 MILLIGRAM ORAL EVERY 6 HOURS NEEDED. as needed for PAIN Qty = 20 GABAPENTIN (NEURONTIN) 300 MG CAP 300 MILLIGRAM ORAL THREE TIMES A DAY. as needed for spasms Qty = 90 NITROFURANTOIN/NITROFURAN MAC (MACROBID) 100 MG CAP 100 MILLIGRAM ORAL TWICE DAILY. Qty = 14 Instructions: Until finished. Take with food. OXYBUTYNIN (OXYBUTYNIN) 5 MG TAB 5 MILLIGRAM ORAL THREE TIMES A DAY. as needed for spasms Qty = 60 Objective VS/I O Last Documented: Result Date Time Pulse Ox 95 10/05 1054 B/P 130/72 10/05 1054 B/P Mean 91.3 10/05 1054 O2 Delivery Room air 10/05 1054 Temp 98.2 10/05 1054 Pulse 69 10/05 1054 Resp 15 10/05 1054 O2 Flow Rate 2 10/05 08 24 hour I O ending at 0700: 10/05 0700 10/04 1900 Intake Total Output Total 1250 Balance -1250 Output, Urine 1250 General appearance: alert, awake, oriented Head/Eyes: atraumatic ENT: dry mucosal membrane Cardiovascular: normal heart sounds, regular rate rhythm Respiratory: aerating well, clear to auscultation, symmetric expansion Abdomen: non-tender, normal bowel sounds, soft, no distention Genitourinary: urinary catheter (clear urine) Extremities: moves all Neuro/TONSORIAL ARTIST: alert, oriented X 3 Skin: dry, intact Psychiatry: normal affect Results Findings/Data: Laboratory Tests: 10/06 55 Chemistry Sodium (134 - 147 mEq/L) 141 Potassium (3.4 - 5.0 mEq/L) 3.5 Chloride (100 - 108 mEq/L) 104 Carbon Dioxide (21 - 33 mEq/l) 30 Anion Gap (0 - 20) 11 BUN (7 - 25 mg/dL) 15 Creatinine (0.6 - 1.3 mg/dL) 0.9 Glomerular Filtr Rate (80 - 90) 94.8 H Glucose (77 - 141 mg/dL) 98 Calcium (8.0 - 10.5 mg/dL) 7.9 L Hematology WBC (4.5 - 11.0 x10 3/uL) 7.1 RBC (4.00 - 5.60 x10 6/uL) 3.45 L Hgb (12.5 - 16.9 g/dL) 9.8 L Hct (37.5 - 50.7 %) 29.5 L MCV (81.0 - 99.0 fL) 85.5 MCH (27.0 - 33.0 pg) 28.4 MCHC (33.0 - 37.0 g/dL) 33.2 RDW (11.5 - 14.5 %) 13.5 Plt Count (150 - 400 x10 3/uL) 210 MPV (7.0 - 9.0 fL) 10.0 H Neut % (Auto) (56.0 - 77.0 %) 58.9 Lymph % (Auto) (14.0 - 32.0 %) 21.1 [place] % (Auto) (4.8 - 9.0 %) 6.7 Eos % (Auto) (0.3 - 3.7 %) 12.6 H Baso % (Auto) (0.0 - 2.0 %) 0.4 Neut # (Auto) (2.0 - 7.6 x10 3/uL) 4.15 Lymph # (Auto) (1.0 - 3.8 x10 3/uL) 1.49 [place] # (Auto) (0.1 - 0.8 x10 3/uL) 0.47 Eos # (Auto) (0.0 - 0.2 x10 3/uL) 0.89 H Baso # (Auto) (0.0 - 0.2 x10 3/uL) 0.03 Abs Immat Gran (auto) (0.00 - 0.03 x10 3/uL) 0.02 Immature Gran % (0.0 - 2.0 %) 0.3 Nucleated RBC % (0 - 0 %) 0.0 Nucleated RBCs # (Man) (0.0 - 0.1 x10 3/uL) 0.00 Discharge Instructions PCP PCP follow-up: PCP: Lakhwinder Guillermo MD Discharge to: Home/Self Care Additional Discharge Routines: PCP Follow-Up, Information Resources Director Follow-Up Diet: Resume Home Diet/Feeds Prescriptions: e-prescribe Discharge management: greater than 30 mins Time spent: Time spent on patient care (minutes): 35 Follow-up Appointments PCP follow-up: PCP: Lakhwinder Guillermo MD PCP follow up timeframe: In 1-2 weeks Special instructions: CALL TO SCHEDULE APPOINTMENT Consulting provider 1: Provider 1: Dave Del Toro MD Specialty: Urology Consult follow up timeframe: In 1-2 weeks Special instructions: CALL TO SCHEDULE APPOINTMENT Darlene Cummins 10/06/24 1357: Attestations Attestation needed: supervising physician at 1651 at 1403 RPT #:[id number] END OF REPORT [facility] 2024-10-04 20:24:00 [facility] ([facility]) Urology Progress Note REPORT#:[id number] REPORT STATUS: Signed REPORT INITIALIZATION DATE:10/04/24 TIME: 2023 PATIENT: MATHEW CASTILLO UNIT #: [id number] ROOM/BED: [place] [address] : 58 AGE: 64 SEX: M ATTEND: Melissa Khan DO ADM AUTHOR: Dave Del Toro MD REPT SERVICE DT/TIME: 10/04/242023 * ALL edits or amendments must be made on the electronic/computer document * Subjective Patient reports: no complaints Objective General VS/I O: Last Documented: Result Date Time Pulse Ox 97 10/05 1915 B/P 105/60 10/05 1915 B/P Mean 75.1 10/05 1915 O2 Delivery Nasal cannula 10/05 1915 Temp 36.8 10/05 1915 Pulse 79 10/05 1915 Resp 15 10/05 1915 O2 Flow Rate 3 10/04 0915 24 hour I O ending at 0700: 10/04 0700 10/03 1900 Intake Total 2400 Output Total 4000 Balance -1600 Intake, Other 2400 Output, Other 4000 PATIENT WEIGHT: Weight (lb): Weight (oz): Weight (kg): 68.182 Physical Exam General appearance: alert, awake, oriented Genitourinary: Genitourinary: catheter in situ, cont. bladder irrig. run. Results Findings/Data: Laboratory Tests: 10/04 10/04 10/04 10/03 1219 0754 0259 2042 Chemistry Sodium (134 - 147 mEq/L) 139 Potassium (3.4 - 5.0 mEq/L) 3.6 Chloride (100 - 108 mEq/L) 103 Carbon Dioxide (21 - 33 mEq/l) 29 Anion Gap (0 - 20) 11 BUN (7 - 25 mg/dL) 13 Creatinine (0.6 - 1.3 mg/dL) 0.8 Glomerular Filtr Rate (80 - 90) 98.2 H Glucose (77 - 141 mg/dL) 100 POC Glucose (70 - 110 MG/DL) 107 109 101 Calcium (8.0 - 10.5 mg/dL) 7.9 L Hematology WBC (4.5 - 11.0 x10 3/uL) 7.0 RBC (4.00 - 5.60 x10 6/uL) 3.58 L Hgb (12.5 - 16.9 g/dL) 10.2 L Hct (37.5 - 50.7 %) 30.7 L MCV (81.0 - 99.0 fL) 85.8 MCH (27.0 - 33.0 pg) 28.5 MCHC (33.0 - 37.0 g/dL) 33.2 RDW (11.5 - 14.5 %) 13.4 Plt Count (150 - 400 x10 3/uL) 202 MPV (7.0 - 9.0 fL) 9.6 H Neut % (Auto) (56.0 - 77.0 %) 58.7 Lymph % (Auto) (14.0 - 32.0 %) 19.5 Culberson % (Auto) (4.8 - 9.0 %) 7.7 Eos % (Auto) (0.3 - 3.7 %) 13.3 H Baso % (Auto) (0.0 - 2.0 %) 0.4 Neut # (Auto) (2.0 - 7.6 x10 3/uL) 4.08 Lymph # (Auto) (1.0 - 3.8 x10 3/uL) 1.36 [place]on # (Auto) (0.1 - 0.8 x10 3/uL) 0.54 Eos # (Auto) (0.0 - 0.2 x10 3/uL) 0.93 H Baso # (Auto) (0.0 - 0.2 x10 3/uL) 0.03 Abs Immat Gran (auto) (0.00 - 0.03 x10 3/uL) 0.03 Immature Gran % (0.0 - 2.0 %) 0.4 Nucleated RBC % (0 - 0 %) 0.0 Nucleated RBCs # (Man) (0.0 - 0.1 x10 3/uL) 0.00 Diagnosis, Assessment Plan Free Text A P: s/p simple prostatectomy - hematuria after coughing. CBI restarted - urine clear, possible discharge tomorrow - hold cbi - oxybutynin and valium added - home tomorrow for one week with mercer at 4 RPT #:[id number] END OF REPORT [facility] 2024-10-04 17:01:00 [facility] ([facility]) Hospitalist Progress Note REPORT#:[id number] REPORT STATUS: Signed REPORT INITIALIZATION DATE:10/04/24 TIME: 1700 PATIENT: MATHEW CASTILLO UNIT #: [id number] ROOM/BED: [place] [address] : [birth year] AGE: 64 SEX: M ATTEND: Melissa Khan DO ADM AUTHOR: Pablo Davenport MD R1 REPT SERVICE DT/TIME: 10/04/241700 * ALL edits or amendments must be made on the electronic/computer document * Pablo Davenport 10/04/241700: Subjective Chief complaint: Still nauseous, no appetite. +gas, no BM HPI: 64-year-old male with a past medical history of hypertension, schizophrenia, TURP is presenting to the hospital for vomiting and shortness of breath as well as bloody urine. Patient had a TURP on Friday by Dr. Del Toro was discharged on the with a Mercer. When he got home he had had meatloaf and Jell-O and then vomited and could not catch his breath after which is when he went to the hospital in [place]. There and they did a CT abdomen pelvis which showed small bowel obstruction or ileus. Patient states he usually does not have frequent bowel movements however he has not had a bowel movement since Friday. He also denies passing any gas. Patient has had a substantial amount of bloody urine since the TURP and is on CBI. Currently patient still endorses nausea and would not like to eat because he thinks he may vomit. SHX: 1 pack a day for 50 years, denies alcohol, denies drugs FH X: None Allergies: None Surgeries: TURP Comments: Patient feels better. Had a bowel movement yesterday, and passing gas. He is still worried about going home as he is concerned that he is not strong enough to go back yet. No Overnight events reported. Review of Systems All systems rev neg: except as noted Free Text ROS Notes Free Text ROS Notes: All 12 systems reviwed and negative except as noted in HPI Objective General VS/I O: Vital Signs: Date Time Temp Pulse Resp B/P B/P Pulse O2 O2 Flow FiO2 Mean Ox Delivery Rate 10/04 1638 79 15 117/66 82.7 98 Nasal cannula 10/04 1221 98.4 79 15 104/66 78.7 96 Nasal cannula 10/04 0915 Nasal 3 cannula 10/04 0755 80 15 136/75 95.0 97 Room air 10/04 0432 98.8 69 16 142/70 93.8 93 Room air 10/04 0011 98.8 82 16 136/72 93.5 99 Room air 10/03 2319 2 10/03 1848 98.8 74 16 166/86 112.5 98 Nasal cannula 10/03 1732 98.6 83 16 143/76 98 24 hour I O ending at 0700: 10/04 0700 10/03 1900 Intake Total 2400 Output Total 4000 Balance -1600 Intake, Other 2400 Output, Other 4000 PATIENT WEIGHT: Weight (lb): Weight (oz): Weight (kg): 68.182 Medications: Active Meds + DC'd Last 24 Hrs Oxybutynin Chloride (DITROPAN) 5 MG TID PO Tamsulosin HCl (Flomax 0.4 mg) 0.4 MG DAILY PO Haloperidol (HALDOL) 15 MG BID PO Acetaminophen (TYLENOL) 650 MG Q4H PRN PRN PO Hydralazine HCl (APRESOLINE) 10 MG Q6H PRN PRN IV Hydroxyzine Pamoate (VISTARIL) 50 MG TID PO Melatonin (Melatonin) 3 MG BEDTIME PRN PO Polyethylene Glycol (MIRALAX) 17 GM DAILY PRN PRN PO Potassium Chloride (POTASSIUM CHLORIDE 20MEQ TAB.ER) 40 MEQ DAILY PRN PRN PO Acetaminophen (TYLENOL) 650 MG Q4H PRN PRN PO Dextrose/Water (DEXTROSE 10% IN WATER) 125 ML ASDIR PRN IV (CKD) Dextrose/Water (DEXTROSE 10% IN WATER) 250 ML ASDIR PRN IV (CKD) Glucagon (GLUCAGON) 1 MG ASDIR PRN IM Hydralazine HCl (APRESOLINE) 10 MG Q6H PRN PRN IV Morphine Sulfate (morphine SULFATE) 2 MG Q4H PRN PRN IV Ondansetron HCl (ZOFRAN) 4 MG Q4H PRN PRN IV Physical Exam General appearance: alert, awake, oriented Head/Eyes: atraumatic ENT: dry mucosal membrane Cardiovascular: normal heart sounds, regular rate rhythm Respiratory: aerating well, clear to auscultation, symmetric expansion Abdomen: non-tender, normal bowel sounds, soft, no distention Genitourinary: urinary catheter (clear urine) Extremities: moves all Neuro/TONSORIAL ARTIST: alert, oriented X 3 Skin: dry, intact Psychiatry: normal affect Diagnosis, Assessment Plan Free Text DxA P Notes Free text DxA P notes: 64-year-old male, history of recent TURP came to ED with c/o urinary retention, obstruction was seen at the ER in [facility], where they were able to place a Mercer. #SBO KUB Advance to regular diet Encourage activity GEN surge consulted Monitor Nursing to assist with ambulation and assist in getting patient to chair PT OT #Hematuria status post TURP Monitor hemoglobin Urology consulted management per them CBI discontinued per urology #Schizophrenia Continue home meds #Hypertension No home meds for blood pressure. Monitor for now and consider starting BP medications tomorrow #BPH Continue home meds Diet: Advance to regular diet DVT PPx: SCDs GI PPx: None Bowel regimen: Miralax PRN Dispo: Case management consulted for SNF 10/02/24 Ileus/SBO: still nauseous, +gas, no BM - repeat KUB - advance diet as per surgery Hematuria post TURP/BPH - continue CBI as per Urology - urine now clear - continue oxybutynin, Flomax Schizophrenia- continue Haldol HTN: no home meds noted, continue prn hydralazine. Per record review, pt is not home medications for HTN and did not require them when admitted for TURP. To avoid orthostasis, will not start BP meds at this time and use prn medications. BP likely elevated related to anxiety and hospital admission. BPH medications will likely have a BP lowering effect once taken. Melissa Khan 10/04/242049: Attestations Teaching Physician Attestation F/U visit w/ resident: I saw the patient with the resident and agree with the resident's findings and plan. Tolerating clear liquids, + BM, advance to regular diet. May need SNF. at 1706 at 7348 RPT #:[id number] END OF REPORT [facility] 2024-10-04 14:40:00 [facility] ([facility]) General Surgery Progress Note REPORT#:[id number] REPORT STATUS: Signed REPORT INITIALIZATION DATE:10/04/24 TIME: 1440 PATIENT: MATHEW CASTILLO UNIT #: [id number] ROOM/BED: [place] [id number] : 59 AGE: 64 SEX: M ATTEND: Darlene Cummins MD ADM AUTHOR: Ginger Do REPT SERVICE DT/TIME: 10/04/24 1440 * ALL edits or amendments must be made on the electronic/computer document * Ginger Do 10/04/24 1440: Subjective HPI: 64-year-old male s/p robotic prostatectomy on 09/28/24 with nausea and vomiting with likely ileus. 10/04: Tolerating diet. +BM Objective General VS/I O: Last Documented: Result Date Time Pulse Ox 96 10/04 1221 B/P 104/66 10/04 1221 B/P Mean 78.7 10/04 1221 O2 Delivery Nasal cannula 10/04 1221 Temp 36.9 10/04 1221 Pulse 79 10/04 1221 Resp 15 10/04 1221 O2 Flow Rate 2 10/03 2319 Vital Signs Date Temp Pulse Resp B/P B/P Mean Pulse Ox FiO2 10/03-10/04 36.9-37.1 69-83 15-16 104-166/66-86 78.7-112.5 93-99 24 hour I O ending at 0700: 10/04 0700 10/03 1900 Intake Total 2400 Output Total 4000 Balance -1600 Intake, Other 2400 Output, Other 4000 PATIENT WEIGHT: Weight (lb): Weight (oz): Weight (kg): 68.182 Medications: Active Meds + DC'd Last 24 Hrs Oxybutynin Chloride (DITROPAN) 5 MG TID PO Tamsulosin HCl (Flomax 0.4 mg) 0.4 MG DAILY PO Haloperidol (HALDOL) 15 MG BID PO Acetaminophen (TYLENOL) 650 MG Q4H PRN PRN PO Hydralazine HCl (APRESOLINE) 10 MG Q6H PRN PRN IV Hydroxyzine Pamoate (VISTARIL) 50 MG TID PO Melatonin (Melatonin) 3 MG BEDTIME PRN PO Polyethylene Glycol (MIRALAX) 17 GM DAILY PRN PRN PO Potassium Chloride (POTASSIUM CHLORIDE 20MEQ TAB.ER) 40 MEQ DAILY PRN PRN PO Acetaminophen (TYLENOL) 650 MG Q4H PRN PRN PO Dextrose/Water (DEXTROSE 10% IN WATER) 125 ML ASDIR PRN IV (CKD) Dextrose/Water (DEXTROSE 10% IN WATER) 250 ML ASDIR PRN IV (CKD) Glucagon (GLUCAGON) 1 MG ASDIR PRN IM Hydralazine HCl (APRESOLINE) 10 MG Q6H PRN PRN IV Morphine Sulfate (morphine SULFATE) 2 MG Q4H PRN PRN IV Ondansetron HCl (ZOFRAN) 4 MG Q4H PRN PRN IV Nutrtion assessment: The data set between the solid lines has been imported from the dietitian's assessment. BMI Calculated: 22.2 Nutrition related diagnosis: Nutrition diagnosis details: Nutrition problem: Nutrition etiology: Nutrition signs and symptoms: Nutrition prescription: Dietitian name: Assessment completed: Physical Exam General appearance: alert, awake, oriented HEENT: anicteric, atraumatic Neck: full range of motion Cardiovascular: regular rate and rhythm Chest: no tenderness Respiratory: aerating well Abdomen: non-tender, soft, no distention Extremities: moves all Musculoskeletal: full range of motion Neuro/TONSORIAL ARTIST: alert, oriented x 3, CNII-XII intact Skin: dry, intact, normal color Lymphatics: no lymphadenopathy Psychiatry: normal affect Results Findings/Data: Laboratory Tests 10/04/24258: [Embedded Image Not Available] Laboratory Tests 10/04 10/04 10/04 10/03 10/03 1219 0754 0259 2042 1725 Chemistry Sodium (134 - 147 mEq/L) 139 Potassium (3.4 - 5.0 mEq/L) 3.6 Chloride (100 - 108 mEq/L) 103 Carbon Dioxide (21 - 33 mEq/l) 29 Anion Gap (0 - 20) 11 BUN (7 - 25 mg/dL) 13 Creatinine (0.6 - 1.3 mg/dL) 0.8 Glomerular Filtr Rate (80 - 90) 98.2 H Glucose (77 - 141 mg/dL) 100 POC Glucose (70 - 110 MG/DL) 107 109 101 126 H Calcium (8.0 - 10.5 mg/dL) 7.9 L Laboratory Tests 10/04 258 Hematology WBC (4.5 - 11.0 x10 3/uL) 7.0 RBC (4.00 - 5.60 x10 6/uL) 3.58 L Hgb (12.5 - 16.9 g/dL) 10.2 L Hct (37.5 - 50.7 %) 30.7 L MCV (81.0 - 99.0 fL) 85.8 MCH (27.0 - 33.0 pg) 28.5 MCHC (33.0 - 37.0 g/dL) 33.2 RDW (11.5 - 14.5 %) 13.4 Plt Count (150 - 400 x10 3/uL) 202 MPV (7.0 - 9.0 fL) 9.6 H Neut % (Auto) (56.0 - 77.0 %) 58.7 Lymph % (Auto) (14.0 - 32.0 %) 19.5 Culberson % (Auto) (4.8 - 9.0 %) 7.7 Eos % (Auto) (0.3 - 3.7 %) 13.3 H Baso % (Auto) (0.0 - 2.0 %) 0.4 Neut # (Auto) (2.0 - 7.6 x10 3/uL) 4.08 Lymph # (Auto) (1.0 - 3.8 x10 3/uL) 1.36 Culberson # (Auto) (0.1 - 0.8 x10 3/uL) 0.54 Eos # (Auto) (0.0 - 0.2 x10 3/uL) 0.93 H Baso # (Auto) (0.0 - 0.2 x10 3/uL) 0.03 Abs Immat Gran (auto) (0.00 - 0.03 x10 3/uL) 0.03 Immature Gran % (0.0 - 2.0 %) 0.4 Nucleated RBC % (0 - 0 %) 0.0 Nucleated RBCs # (Man) (0.0 - 0.1 x10 3/uL) 0.00 Diagnosis, Assessment Plan Free Text A P: 64 yo M s/p robotic prostatectomy with an ileus, now resolving. Now tolerating diet, having bowel function. Patient seen and examined with Dr. Randhawa. - continue regular diet - general surgery will sign off. Please re-consult if needed - rest of care per primary/urology Monty Randhawa 10/05/24 1600: Attestations Physician Attestation Agree w/findings plan: I have personally interviewed and examined the pt. All charts, labs and imaging studies were reviewed. I agree with the PA's exam and plan. at 1442 at 1601 RPT #:[id number] END OF REPORT [facility] 2024-10-03 20:43:00 [facility] General Surgery Progress Note REPORT#:[id number] REPORT STATUS: Signed REPORT INITIALIZATION DATE:10/03/24 TIME: 2042 PATIENT: MATHEW CASTILLO UNIT #: [id number] ROOM/BED: [place] [id number] : [birth year] AGE: 64 SEX: M ATTEND: Melissa Khan DO ADM AUTHOR: Alecia Vela MD REPT SERVICE DT/TIME: 10/03/242042 * ALL edits or amendments must be made on the electronic/computer document * Subjective HPI: 64-year-old male s/p robotic prostatectomy on 09/28/24 with nausea and vomiting with likely ileus. Passing gas, tolerating clears. Objective General VS/I O: Last Documented: Result Date Time Pulse Ox 98 10/04 1847 B/P 166/86 10/04 1847 B/P Mean 112.5 10/04 1847 O2 Delivery Nasal cannula 10/04 1847 Temp 37.1 10/03 1848 Pulse 74 10/03 1848 Resp 16 10/04 1847 O2 Flow Rate 2 10/03 1030 Vital Signs Date Temp Pulse Resp B/P B/P Mean Pulse Ox FiO2 10/02-10/03 36.8-37.1 74-88 15-18 143-166/76-94 104.2-115.3 94-98 24 hour I O ending at 0700: 10/03 0700 10/02 1900 Intake Total 9120 Output Total 8500 Balance 620 Intake, Oral 120 Intake, Other 9000 Number 0 Bowel Movements Output, Emesis Output, Other 8500 PATIENT WEIGHT: Weight (lb): Weight (oz): Weight (kg): 68.182 Physical Exam Cardiovascular: regular rate and rhythm Respiratory: aerating well Abdomen: non-tender, soft, no distention Extremities: moves all Diagnosis, Assessment Plan Free Text A P: 64 yo M s/p robotic prostatectomy with an ileus, now resolving. - advance to regular diet at 2044 RPT #:[id number] END OF REPORT [facility] 2024-10-03 14:28:00 [facility] Hospitalist Progress Note REPORT#:[id number] REPORT STATUS: Signed REPORT INITIALIZATION DATE:10/03/24 TIME: 1427 PATIENT: MATHEW CASTILLO UNIT #: [id number] ROOM/BED: [place] [id number] : [birth year] AGE: 64 SEX: M ATTEND: Melissa Khan DO ADM AUTHOR: Pablo Davenport MD R1 REPT SERVICE DT/TIME: 10/03/24 1428 * ALL edits or amendments must be made on the electronic/computer document * Pablo Davenport 10/03/24 1428: Subjective Chief complaint: Still nauseous, no appetite. +gas, no BM HPI: 64-year-old male with a past medical history of hypertension, schizophrenia, TURP is presenting to the hospital for vomiting and shortness of breath as well as bloody urine. Patient had a TURP on Friday by Dr. Del Toro was discharged on the with a Mercer. When he got home he had had meatloaf and Jell-O and then vomited and could not catch his breath after which is when he went to the hospital in [place]. There and they did a CT abdomen pelvis which showed small bowel obstruction or ileus. Patient states he usually does not have frequent bowel movements however he has not had a bowel movement since Friday. He also denies passing any gas. Patient has had a substantial amount of bloody urine since the TURP and is on CBI. Currently patient still endorses nausea and would not like to eat because he thinks he may vomit. SHX: 1 pack a day for 50 years, denies alcohol, denies drugs FH X: None Allergies: None Surgeries: TURP Comments: Patient feels well. He still is not having bowel movements, however he started passing gas yesterday. No hematuria noted. No complaints noted. Review of Systems All systems rev neg: except as noted Free Text ROS Notes Free Text ROS Notes: All 12 systems reviwed and negative except as noted in HPI Objective General VS/I O: Vital Signs: Date Time Temp Pulse Resp B/P B/P Pulse O2 O2 Flow FiO2 Mean Ox Delivery Rate 10/03 1148 98.4 80 15 146/83 104.2 96 Nasal cannula 10/03 1030 Nasal 2 cannula 10/03 0803 98.6 87 15 159/94 115.3 94 10/03 0430 98.2 88 18 155/81 105.6 98 Nasal cannula 10/03 0009 98.2 81 16 159/84 109.1 97 Nasal cannula 10/02 2230 Nasal 2 cannula 10/02 1924 98.8 93 16 146/88 107.0 97 Nasal cannula 10/02 1649 98.8 92 16 171/83 112.3 98 Nasal cannula 10/02 1446 Nasal 3 cannula 24 hour I O ending at 0700: 10/03 0700 10/02 1900 Intake Total 9120 Output Total 8500 Balance 620 Intake, Oral 120 Intake, Other 9000 Number 0 Bowel Movements Output, Emesis Output, Other 8500 PATIENT WEIGHT: Weight (lb): Weight (oz): Weight (kg): 68.182 Medications: Active Meds + DC'd Last 24 Hrs Oxybutynin Chloride (DITROPAN) 5 MG TID PO Tamsulosin HCl (Flomax 0.4 mg) 0.4 MG DAILY PO Haloperidol (HALDOL) 15 MG BID PO Acetaminophen (TYLENOL) 650 MG Q4H PRN PRN PO Hydralazine HCl (APRESOLINE) 10 MG Q6H PRN PRN IV Hydroxyzine Pamoate (VISTARIL) 50 MG TID PO Melatonin (Melatonin) 3 MG BEDTIME PRN PO Polyethylene Glycol (MIRALAX) 17 GM DAILY PRN PRN PO Potassium Chloride (POTASSIUM CHLORIDE 20MEQ TAB.ER) 40 MEQ DAILY PRN PRN PO Acetaminophen (TYLENOL) 650 MG Q4H PRN PRN PO Dextrose/Water (DEXTROSE 10% IN WATER) 125 ML ASDIR PRN IV (CKD) Dextrose/Water (DEXTROSE 10% IN WATER) 250 ML ASDIR PRN IV (CKD) Glucagon (GLUCAGON) 1 MG ASDIR PRN IM Hydralazine HCl (APRESOLINE) 10 MG Q6H PRN PRN IV Morphine Sulfate (morphine SULFATE) 2 MG Q4H PRN PRN IV Ondansetron HCl (ZOFRAN) 4 MG Q4H PRN PRN IV Lactated Ringer's (LACTATED RINGERS) 1,000 ML .Q9H6M IV (DC) Physical Exam General appearance: alert, awake, oriented Head/Eyes: atraumatic ENT: dry mucosal membrane Cardiovascular: normal heart sounds, regular rate rhythm Respiratory: aerating well, clear to auscultation, symmetric expansion Abdomen: non-tender, normal bowel sounds, soft, no distention Genitourinary: urinary catheter (clear urine) Extremities: moves all Neuro/TONSORIAL ARTIST: alert, oriented X 3 Skin: dry, intact Psychiatry: normal affect Results Findings/Data: Laboratory Tests 10/03 10/03 10/03 10/02 10/02 1147 0801 0358 1921 1649 Chemistry Sodium (134 - 147 mEq/L) 138 Potassium (3.4 - 5.0 mEq/L) 4.0 Chloride (100 - 108 mEq/L) 102 Carbon Dioxide (21 - 33 mEq/l) 27 Anion Gap (0 - 20) 13 BUN (7 - 25 mg/dL) 19 Creatinine (0.6 - 1.3 mg/dL) 0.8 Glomerular Filtr Rate (80 - 90) 98.2 H Glucose (77 - 141 mg/dL) 107 POC Glucose (70 - 110 MG/DL) 119 H 112 H 117 H 121 H Calcium (8.0 - 10.5 mg/dL) 8.1 Laboratory Tests 10/03 0358 Hematology WBC (4.5 - 11.0 x10 3/uL) 8.6 RBC (4.00 - 5.60 x10 6/uL) 3.94 L Hgb (12.5 - 16.9 g/dL) 11.4 L Hct (37.5 - 50.7 %) 34.0 L MCV (81.0 - 99.0 fL) 86.3 MCH (27.0 - 33.0 pg) 28.9 MCHC (33.0 - 37.0 g/dL) 33.5 RDW (11.5 - 14.5 %) 13.9 Plt Count (150 - 400 x10 3/uL) 227 MPV (7.0 - 9.0 fL) 10.1 H Neut % (Auto) (56.0 - 77.0 %) 75.9 Lymph % (Auto) (14.0 - 32.0 %) 12.2 L Culberson % (Auto) (4.8 - 9.0 %) 7.3 Eos % (Auto) (0.3 - 3.7 %) 4.1 H Baso % (Auto) (0.0 - 2.0 %) 0.3 Neut # (Auto) (2.0 - 7.6 x10 3/uL) 6.56 Lymph # (Auto) (1.0 - 3.8 x10 3/uL) 1.05 Culberson # (Auto) (0.1 - 0.8 x10 3/uL) 0.63 Eos # (Auto) (0.0 - 0.2 x10 3/uL) 0.35 H Baso # (Auto) (0.0 - 0.2 x10 3/uL) 0.03 Abs Immat Gran (auto) (0.00 - 0.03 x10 3/uL) 0.02 Immature Gran % (0.0 - 2.0 %) 0.2 Nucleated RBC % (0 - 0 %) 0.0 Nucleated RBCs # (Man) (0.0 - 0.1 x10 3/uL) 0.00 Diagnosis, Assessment Plan Free Text DxA P Notes Free text DxA P notes: 64-year-old male, history of recent TURP came to ED with c/o urinary retention, obstruction was seen at the ER in [facility], where they were able to place a Mercer. #SBO KUB Clear liquid plus IV fluids Encourage activity GEN surge consulted Monitor Nursing to assist with ambulation and assist in getting patient to chair #Hematuria status post TURP Monitor hemoglobin Urology consulted management per them Continue CBI #Schizophrenia Continue home meds #Hypertension No home meds for blood pressure. Monitor for now and consider starting BP medications tomorrow #BPH Continue home meds Diet: N.p.o. DVT PPx: SCDs GI PPx: None Bowel regimen: Miralax PRN 10/02/24 Ileus/SBO: still nauseous, +gas, no BM - repeat KUB - advance diet as per surgery Hematuria post TURP/BPH - continue CBI as per Urology - urine now clear - continue oxybutynin, Flomax Schizophrenia- continue Haldol HTN: no home meds noted, continue prn hydralazine. Per record review, pt is not home medications for HTN and did not require them when admitted for TURP. To avoid orthostasis, will not start BP meds at this time and use prn medications. BP likely elevated related to anxiety and hospital admission. BPH medications will likely have a BP lowering effect once taken. Melissa Khan 10/03/24 1724: Attestations Teaching Physician Attestation F/U visit w/ resident: I saw the patient with the resident and agree with the resident's findings and plan. Feeling better, moving gas, less nauseous. Advancing diet to clear liquids. Mercer clear, continue CBI as per Urology at 1432 at 1730 RPT #:[id number] END OF REPORT [facility] 2024-10-03 10:53:00 [facility] ([facility]) Urology Progress Note REPORT#:[id number] REPORT STATUS: Signed REPORT INITIALIZATION DATE:10/03/24 TIME: 1052 PATIENT: MATHEW CASTILLO UNIT #: [id number] ROOM/BED: [place] [id number] : 59 AGE: 64 SEX: M ATTEND: Melissa Khan DO ADM AUTHOR: Dave Del Toro MD REPT SERVICE DT/TIME: 10/03/24 105 * ALL edits or amendments must be made on the electronic/computer document * Subjective Patient reports: no complaints Objective General VS/I O: Last Documented: Result Date Time Pulse Ox 94 10/03 0803 B/P 159/94 10/03 0803 B/P Mean 115.3 10/03 0803 Temp 37.0 10/03 0803 Pulse 87 10/03 0803 Resp 15 10/03 0803 O2 Delivery Nasal cannula 10/03 0430 O2 Flow Rate 2 10/02 2230 24 hour I O ending at 0700: 10/03 0700 10/02 1900 Intake Total 9120 Output Total 8500 Balance 620 Intake, Oral 120 Intake, Other 9000 Number 0 Bowel Movements Output, Emesis Output, Other 8500 PATIENT WEIGHT: Weight (lb): Weight (oz): Weight (kg): 68.182 Physical Exam Genitourinary: Genitourinary: catheter in situ, cont. bladder irrig. run. Results Findings/Data: Laboratory Tests: 10/03 10/03 10/02 10/02 0801 0358 1921 1649 Chemistry Sodium (134 - 147 mEq/L) 138 Potassium (3.4 - 5.0 mEq/L) 4.0 Chloride (100 - 108 mEq/L) 102 Carbon Dioxide (21 - 33 mEq/l) 27 Anion Gap (0 - 20) 13 BUN (7 - 25 mg/dL) 19 Creatinine (0.6 - 1.3 mg/dL) 0.8 Glomerular Filtr Rate (80 - 90) 98.2 H Glucose (77 - 141 mg/dL) 107 POC Glucose (70 - 110 MG/DL) 112 H 117 H 121 H Calcium (8.0 - 10.5 mg/dL) 8.1 Hematology WBC (4.5 - 11.0 x10 3/uL) 8.6 RBC (4.00 - 5.60 x10 6/uL) 3.94 L Hgb (12.5 - 16.9 g/dL) 11.4 L Hct (37.5 - 50.7 %) 34.0 L MCV (81.0 - 99.0 fL) 86.3 MCH (27.0 - 33.0 pg) 28.9 MCHC (33.0 - 37.0 g/dL) 33.5 RDW (11.5 - 14.5 %) 13.9 Plt Count (150 - 400 x10 3/uL) 227 MPV (7.0 - 9.0 fL) 10.1 H Neut % (Auto) (56.0 - 77.0 %) 75.9 Lymph % (Auto) (14.0 - 32.0 %) 12.2 L Culberson % (Auto) (4.8 - 9.0 %) 7.3 Eos % (Auto) (0.3 - 3.7 %) 4.1 H Baso % (Auto) (0.0 - 2.0 %) 0.3 Neut # (Auto) (2.0 - 7.6 x10 3/uL) 6.56 Lymph # (Auto) (1.0 - 3.8 x10 3/uL) 1.05 Culberson # (Auto) (0.1 - 0.8 x10 3/uL) 0.63 Eos # (Auto) (0.0 - 0.2 x10 3/uL) 0.35 H Baso # (Auto) (0.0 - 0.2 x10 3/uL) 0.03 Abs Immat Gran (auto) (0.00 - 0.03 x10 3/uL) 0.02 Immature Gran % (0.0 - 2.0 %) 0.2 Nucleated RBC % (0 - 0 %) 0.0 Nucleated RBCs # (Man) (0.0 - 0.1 x10 3/uL) 0.00 10/02 1222 Chemistry POC Glucose (70 - 110 MG/DL) 118 H Recent Impressions: RADIOLOGY - XR ABDOMEN 1V (KUB) 10/02 1148 Report Impression - Status: SIGNED Entered: 10/02/2024 1347 IMPRESSION: Partial small bowel obstruction versus moderate ileus without change. Electronically signed by: Barry Klein MD 10/02/2024 01:45 PM CDT Impression By: Dee Dee - Barry Klein M.D. Diagnosis, Assessment Plan Free Text A P: s/p simple prostatectomy - hematuria after coughing. CBI restarted - urine clear, possible discharge tomorrow - continue cbi and monitor - wean as tolerated - oxybutynin and valium added at 1054 RPT #:[id number] END OF REPORT [facility] 2024-10-02 13:32:00 [facility] Hospitalist Progress Note REPORT#:[id number] REPORT STATUS: Signed REPORT INITIALIZATION DATE:10/02/24 TIME: 1331 PATIENT: MATHEW CASTILLO UNIT #: [id number] ROOM/BED: [place] [id number] : 58 AGE: 64 SEX: M ATTEND: Melissa Khan DO ADM AUTHOR: Melissa Khan DO REPT SERVICE DT/TIME: 10/02/24 1332 * ALL edits or amendments must be made on the electronic/computer document * Subjective Chief complaint: Still nauseous, no appetite. +gas, no BM HPI: 64-year-old male with a past medical history of hypertension, schizophrenia, TURP is presenting to the hospital for vomiting and shortness of breath as well as bloody urine. Patient had a TURP on Friday by Dr. Del Toro was discharged on the with a Mercer. When he got home he had had meatloaf and Jell-O and then vomited and could not catch his breath after which is when he went to the hospital in [place]. There and they did a CT abdomen pelvis which showed small bowel obstruction or ileus. Patient states he usually does not have frequent bowel movements however he has not had a bowel movement since Friday. He also denies passing any gas. Patient has had a substantial amount of bloody urine since the TURP and is on CBI. Currently patient still endorses nausea and would not like to eat because he thinks he may vomit. SHX: 1 pack a day for 50 years, denies alcohol, denies drugs FH X: None Allergies: None Surgeries: TURP Review of Systems Free Text ROS Notes Free Text ROS Notes: All 12 systems reviwed and negative except as noted in HPI Objective General VS/I O: Vital Signs: Date Time Temp Pulse Resp B/P B/P Pulse O2 O2 Flow FiO2 Mean Ox Delivery Rate 10/02 1225 98.4 82 15 159/83 108.3 95 Nasal cannula 10/02 0735 98.4 87 14 160/96 117.1 97 Nasal cannula 10/02 0444 98.2 84 16 160/87 111.2 96 Room air 10/01 2329 99.3 105 16 159/88 111.6 95 Nasal cannula 10/01 1953 99.0 81 18 172/87 115.3 98 Nasal cannula 24 hour I O ending at 0700: 10/02 0700 10/01 1900 Intake Total Output Total 1175 40562 Balance -1175 -24359 Output, Other 74864 Output, Urine 1175 PATIENT WEIGHT: Weight (lb): Weight (oz): Weight (kg): 68.182 Medications: Active Meds + DC'd Last 24 Hrs Oxybutynin Chloride (DITROPAN) 5 MG TID PO Tamsulosin HCl (Flomax 0.4 mg) 0.4 MG DAILY PO Promethazine HCl (Promethazine 25 mg/1 mL Inj) 12.5 MG ONCE ONE IV (DC) Sodium Chloride (SODIUM CHLORIDE 0.9%) 50 ML Haloperidol (HALDOL) 15 MG BID PO Acetaminophen (TYLENOL) 650 MG Q4H PRN PRN PO Hydralazine HCl (APRESOLINE) 10 MG Q6H PRN PRN IV Hydroxyzine Pamoate (VISTARIL) 50 MG TID PO Melatonin (Melatonin) 3 MG BEDTIME PRN PO Polyethylene Glycol (MIRALAX) 17 GM DAILY PRN PRN PO Potassium Chloride (POTASSIUM CHLORIDE 20MEQ TAB.ER) 40 MEQ DAILY PRN PRN PO Acetaminophen (TYLENOL) 650 MG Q4H PRN PRN PO Dextrose/Water (DEXTROSE 10% IN WATER) 125 ML ASDIR PRN IV (CKD) Dextrose/Water (DEXTROSE 10% IN WATER) 250 ML ASDIR PRN IV (CKD) Glucagon (GLUCAGON) 1 MG ASDIR PRN IM Hydralazine HCl (APRESOLINE) 10 MG Q6H PRN PRN IV Morphine Sulfate (morphine SULFATE) 2 MG Q4H PRN PRN IV Ondansetron HCl (ZOFRAN) 4 MG Q4H PRN PRN IV Lactated Ringer's (LACTATED RINGERS) 1,000 ML .Q9H6M IV Physical Exam General appearance: alert, awake, oriented, no acute distress, pleasant, no respiratory distress Head/Eyes: atraumatic ENT: dry mucosal membrane Cardiovascular: normal heart sounds, regular rate rhythm Respiratory: aerating well, clear to auscultation, symmetric expansion Abdomen: non-tender, normal bowel sounds, soft, no distention Genitourinary: urinary catheter (clear urine) Extremities: moves all Neuro/TONSORIAL ARTIST: alert, oriented X 3 Skin: dry, intact Psychiatry: normal affect Results Findings/Data: Laboratory Tests 10/02 10/02 10/02 10/02 1222 0912 0612 0405 Chemistry Sodium (134 - 147 mEq/L) 140 Potassium (3.4 - 5.0 mEq/L) 4.1 Chloride (100 - 108 mEq/L) 103 Carbon Dioxide (21 - 33 mEq/l) 25 Anion Gap (0 - 20) 16 BUN (7 - 25 mg/dL) 15 Creatinine (0.6 - 1.3 mg/dL) 0.8 Glomerular Filtr Rate (80 - 90) 98.2 H Glucose (77 - 141 mg/dL) 98 POC Glucose (70 - 110 MG/DL) 118 H 110 116 H Calcium (8.0 - 10.5 mg/dL) 8.5 Magnesium (1.6 - 2.6 mg/dL) 1.82 Laboratory Tests 10/02 0405 Hematology WBC (4.5 - 11.0 x10 3/uL) 10.3 RBC (4.00 - 5.60 x10 6/uL) 4.50 Hgb (12.5 - 16.9 g/dL) 12.9 Hct (37.5 - 50.7 %) 38.7 MCV (81.0 - 99.0 fL) 86.0 MCH (27.0 - 33.0 pg) 28.7 MCHC (33.0 - 37.0 g/dL) 33.3 RDW (11.5 - 14.5 %) 14.0 Plt Count (150 - 400 x10 3/uL) 253 MPV (7.0 - 9.0 fL) 10.8 H Neut % (Auto) (56.0 - 77.0 %) 81.5 H Lymph % (Auto) (14.0 - 32.0 %) 9.2 L Culberson % (Auto) (4.8 - 9.0 %) 6.7 Eos % (Auto) (0.3 - 3.7 %) 1.7 Baso % (Auto) (0.0 - 2.0 %) 0.4 Neut # (Auto) (2.0 - 7.6 x10 3/uL) 8.39 H Lymph # (Auto) (1.0 - 3.8 x10 3/uL) 0.95 L Culberson # (Auto) (0.1 - 0.8 x10 3/uL) 0.69 Eos # (Auto) (0.0 - 0.2 x10 3/uL) 0.17 Baso # (Auto) (0.0 - 0.2 x10 3/uL) 0.04 Abs Immat Gran (auto) (0.00 - 0.03 x10 3/uL) 0.05 H Immature Gran % (0.0 - 2.0 %) 0.5 Nucleated RBC % (0 - 0 %) 0.0 Nucleated RBCs # (Man) (0.0 - 0.1 x10 3/uL) 0.00 Radiology data: Recent Impressions: RADIOLOGY - XR ABDOMEN 1V (KUB) 10/01 1415 Report Impression - Status: SIGNED Entered: 10/02/2024 0950 IMPRESSION: 1. More pronounced dilated thick-walled loops of mid small bowel but some contrast remains in the right colon. Findings may represent ileus or partial small bowel obstruction. 2. Right lateral abdominal wall emphysema. Electronically signed by: Jenny Cervantes MD 10/02/2024 09:47 AM CDT Impression By: Asael - Jenny Cervantes M.D. Diagnosis, Assessment Plan Free Text DxA P Notes Free text DxA P notes: 64-year-old male, history of recent TURP came to ED with c/o urinary retention, obstruction was seen at the ER in [facility], where they were able to place a Mercer. #SBO KUB N.p.o. plus IV fluids Encourage activity GEN surge consulted Monitor #Hematuria status post TURP Monitor hemoglobin Urology consulted management per them #Schizophrenia Continue home meds #Hypertension Monitor continue home meds #BPH Continue home meds Diet: N.p.o. DVT PPx: SCDs GI PPx: None Bowel regimen: Miralax PRN 10/02/24 Ileus/SBO: still nauseous, +gas, no BM - repeat KUB - advance diet as per surgery Hematuria post TURP/BPH - continue CBI as per Urology - urine now clear - continue oxybutynin, Flomax Schizophrenia- continue Haldol HTN: no home meds noted, continue prn hydralazine. Per record review, pt is not home medications for HTN and did not require them when admitted for TURP. To avoid orthostasis, will not start BP meds at this time and use prn medications. BP likely elevated related to anxiety and hospital admission. BPH medications will likely have a BP lowering effect once taken. at 1339 RPT #:[id number] END OF REPORT [facility] 2024-10-02 13:26:00 [facility] Urology Progress Note REPORT#:[id number] REPORT STATUS: Signed REPORT INITIALIZATION DATE:10/02/24 TIME: 1325 PATIENT: MATHEW CASTILLO UNIT #: [id number] ROOM/BED: [place] [id number] : 58 AGE: 64 SEX: M ATTEND: Melissa Khan DO ADM AUTHOR: Dave Del Toro MD REPT SERVICE DT/TIME: 10/02/24 1326 * ALL edits or amendments must be made on the electronic/computer document * Subjective Patient reports: no complaints Objective General VS/I O: Last Documented: Result Date Time Pulse Ox 95 10/02 1225 B/P 159/83 10/02 1225 B/P Mean 108.3 10/02 1225 O2 Delivery Nasal cannula 10/02 1225 Temp 36.9 10/02 1225 Pulse 82 10/02 1225 Resp 15 10/02 1225 O2 Flow Rate 3.5 10/01 1031 24 hour I O ending at 0700: 10/02 0700 10/01 1900 Intake Total Output Total 1175 11684 Balance -1175 -25190 Output, Other 67000 Output, Urine 1175 PATIENT WEIGHT: Weight (lb): Weight (oz): Weight (kg): 68.182 Physical Exam General appearance: alert, awake, oriented Genitourinary: Genitourinary: catheter in situ, cont. bladder irrig. run. Results Findings/Data: Laboratory Tests: 10/02 10/02 10/02 10/02 1222 0912 0612 0405 Chemistry Sodium (134 - 147 mEq/L) 140 Potassium (3.4 - 5.0 mEq/L) 4.1 Chloride (100 - 108 mEq/L) 103 Carbon Dioxide (21 - 33 mEq/l) 25 Anion Gap (0 - 20) 16 BUN (7 - 25 mg/dL) 15 Creatinine (0.6 - 1.3 mg/dL) 0.8 Glomerular Filtr Rate (80 - 90) 98.2 H Glucose (77 - 141 mg/dL) 98 POC Glucose (70 - 110 MG/DL) 118 H 110 116 H Calcium (8.0 - 10.5 mg/dL) 8.5 Magnesium (1.6 - 2.6 mg/dL) 1.82 Hematology WBC (4.5 - 11.0 x10 3/uL) 10.3 RBC (4.00 - 5.60 x10 6/uL) 4.50 Hgb (12.5 - 16.9 g/dL) 12.9 Hct (37.5 - 50.7 %) 38.7 MCV (81.0 - 99.0 fL) 86.0 MCH (27.0 - 33.0 pg) 28.7 MCHC (33.0 - 37.0 g/dL) 33.3 RDW (11.5 - 14.5 %) 14.0 Plt Count (150 - 400 x10 3/uL) 253 MPV (7.0 - 9.0 fL) 10.8 H Neut % (Auto) (56.0 - 77.0 %) 81.5 H Lymph % (Auto) (14.0 - 32.0 %) 9.2 L Culberson % (Auto) (4.8 - 9.0 %) 6.7 Eos % (Auto) (0.3 - 3.7 %) 1.7 Baso % (Auto) (0.0 - 2.0 %) 0.4 Neut # (Auto) (2.0 - 7.6 x10 3/uL) 8.39 H Lymph # (Auto) (1.0 - 3.8 x10 3/uL) 0.95 L Culberson # (Auto) (0.1 - 0.8 x10 3/uL) 0.69 Eos # (Auto) (0.0 - 0.2 x10 3/uL) 0.17 Baso # (Auto) (0.0 - 0.2 x10 3/uL) 0.04 Abs Immat Gran (auto) (0.00 - 0.03 x10 3/uL) 0.05 H Immature Gran % (0.0 - 2.0 %) 0.5 Nucleated RBC % (0 - 0 %) 0.0 Nucleated RBCs # (Man) (0.0 - 0.1 x10 3/uL) 0.00 Recent Impressions: RADIOLOGY - XR ABDOMEN 1V (KUB) 10/01 1415 Report Impression - Status: SIGNED Entered: 10/02/2024 0950 IMPRESSION: 1. More pronounced dilated thick-walled loops of mid small bowel but some contrast remains in the right colon. Findings may represent ileus or partial small bowel obstruction. 2. Right lateral abdominal wall emphysema. Electronically signed by: Jenny Cervantes MD 10/02/2024 09:47 AM CDT Impression By: [facility] Jenny Cervantes M.D. Diagnosis, Assessment Plan Free Text A P: s/p simple prostatectomy - hematuria after coughing. CBI restarted - continue cbi and monitor - wean as tolerated - oxybutynin and valium added at 1327 RPT #:[id number] END OF REPORT [facility] 2024-10-02 12:42:00 [facility] General Surgery Progress Note REPORT#:[id number] REPORT STATUS: Signed REPORT INITIALIZATION DATE:10/02/24 TIME: 1242 PATIENT: MATHEW CASTILLO UNIT #: [id number] ROOM/BED: [place] [address] : 59 AGE: 64 SEX: M ATTEND: Melissa Khan DO ADM AUTHOR: Alecia Vela MD REPT SERVICE DT/TIME: 10/02/24 1242 * ALL edits or amendments must be made on the electronic/computer document * Subjective HPI: 64-year-old male s/p robotic prostatectomy on 09/28/24 with nausea and vomiting with likely ileus. Passing gas today although still having some nausea. Objective General VS/I O: Last Documented: Result Date Time Pulse Ox 95 10/02 1225 B/P 159/83 10/02 1225 B/P Mean 108.3 10/02 1225 O2 Delivery Nasal cannula 10/02 1225 Temp 36.9 10/02 1225 Pulse 82 10/02 1225 Resp 15 10/02 1225 O2 Flow Rate 3.5 10/01 1031 Vital Signs Date Temp Pulse Resp B/P B/P Mean Pulse Ox FiO2 10/01-10/02 36.8-37.4 81-105 14-18 159-172/83-9 108.3-117.1 95-98 6 24 hour I O ending at 0700: 10/02 0700 10/01 1900 Intake Total Output Total 1175 80101 Balance -1175 -57706 Output, Other 37271 Output, Urine 1175 PATIENT WEIGHT: Weight (lb): Weight (oz): Weight (kg): 68.182 Physical Exam Cardiovascular: regular rate and rhythm Respiratory: aerating well Abdomen: non-tender, soft, no distention Extremities: moves all Skin: dry, intact, normal color Diagnosis, Assessment Plan Free Text A P: 64-year-old male s/p robotic prostatectomy for BPH presenting with a post- operative ileus. Passing gas today. - clear liquid diet at 1245 RPT #:[id number] END OF REPORT [facility] 2024 18:35:00 [facility] ([facility]) Urology Progress Note REPORT#:[id number] REPORT STATUS: Signed REPORT INITIALIZATION DATE:10/01/24 TIME: 1834 PATIENT: MATHEW CASTILLO UNIT #: [id number] ROOM[address]BED: [address] : 59 AGE: 64 SEX: M ATTEND: Melissa Khan DO ADM AUTHOR: Dave Del Toro MD REPT SERVICE DT/TIME: 10/01/241834 * ALL edits or amendments must be made on the electronic/computer document * Subjective Patient reports: hematuria after coughing Objective General VS/I O: Last Documented: Result Date Time O2 Delivery Nasal cannula 10/01 1031 O2 Flow Rate 3.5 10/01 1031 Pulse Ox 93 10/01 0715 B/P 149/79 10/01 0715 B/P Mean 107 10/01 0715 Pulse 78 10/01 0715 Resp 17 10/01 0715 Temp 36.8 10/01 216 24 hour I O ending at 0700: 10/01 0700 09/30 1900 Intake Total Output Total Balance Patient 68.182 kg Weight Weight Stated/Reported Measurement Method PATIENT WEIGHT: Weight (lb): Weight (oz): Weight (kg): 68.182 Physical Exam General appearance: alert, awake, oriented Genitourinary: Genitourinary: catheter in situ, cont. bladder irrig. run. Results Findings/Data: Laboratory Tests: 10/01 209 Chemistry Sodium (134 - 147 mEq/L) 139 Potassium (3.4 - 5.0 mEq/L) 4.2 Chloride (100 - 108 mEq/L) 104 Carbon Dioxide (21 - 33 mEq/l) 27 Anion Gap (0 - 20) 12 BUN (7 - 25 mg/dL) 16 Creatinine (0.6 - 1.3 mg/dL) 1.1 Glomerular Filtr Rate (80 - 90) 74.5 L Glucose (77 - 141 mg/dL) 144 H Calcium (8.0 - 10.5 mg/dL) 8.3 Total Bilirubin (0.0 - 1.0 mg/dL) 0.90 AST (8 - 34 IUnit/L) 16 ALT (10 - 49 IUnit/L) 11 Total Alk Phosphatase (20 - 125 IUnit/L) 61 Total Protein (5.7 - 8.2 g/dL) 6.5 Albumin (3.4 - 5.0 g/dL) 3.30 L Hematology WBC (4.5 - 11.0 x10 3/uL) 14.4 H RBC (4.00 - 5.60 x10 6/uL) 4.28 Hgb (12.5 - 16.9 g/dL) 12.1 L Hct (37.5 - 50.7 %) 36.8 L MCV (81.0 - 99.0 fL) 86.0 MCH (27.0 - 33.0 pg) 28.3 MCHC (33.0 - 37.0 g/dL) 32.9 L RDW (11.5 - 14.5 %) 14.1 Plt Count (150 - 400 x10 3/uL) 203 MPV (7.0 - 9.0 fL) 10.3 H Neut % (Auto) (56.0 - 77.0 %) 96.2 H Lymph % (Auto) (14.0 - 32.0 %) 1.7 L Culberson % (Auto) (4.8 - 9.0 %) 1.2 L Eos % (Auto) (0.3 - 3.7 %) 0.0 L Baso % (Auto) (0.0 - 2.0 %) 0.2 Neut # (Auto) (2.0 - 7.6 x10 3/uL) 13.82 H Lymph # (Auto) (1.0 - 3.8 x10 3/uL) 0.24 L Culberson # (Auto) (0.1 - 0.8 x10 3/uL) 0.17 Eos # (Auto) (0.0 - 0.2 x10 3/uL) 0.00 Baso # (Auto) (0.0 - 0.2 x10 3/uL) 0.03 Abs Immat Gran (auto) (0.00 - 0.03 x10 3/uL) 0.10 H Immature Gran % (0.0 - 2.0 %) 0.7 Nucleated RBC % (0 - 0 %) 0.0 Nucleated RBCs # (Man) (0.0 - 0.1 x10 3/uL) 0.00 Urines Urine Color (YEL/STRAW) RED H Urine Appearance (CLEAR) CLOUDY H Urine pH (5.0 - 7.0) 7.0 Ur Specific [place] (1.005 - 1.030) 1.010 Urine Protein (NEGATIVE) 4+ H Urine Glucose (UA) (NEGATIVE) NEGATIVE Urine Ketones (NEGATIVE) NEGATIVE Urine Blood (NEGATIVE) 5+ Urine Nitrite (NEGATIVE) NEGATIVE Urine Bilirubin (NEGATIVE) NEGATIVE Urine Urobilinogen (0.2 - 1.0 mg/dL) 0.2 Ur Leukocyte Esterase (NEGATIVE) NEGATIVE Urine RBC (0 - 3 RBC/HPF) >50 H Urine WBC (0 - 3 WBC/HPF) 4-9 H Ur Squamous Epith Cells (NONE SEEN /HPF) NONE SEEN Urine Bacteria (NONE SEEN /HPF) TRACE Recent Impressions: RADIOLOGY - XR ABDOMEN 1V (KUB) 10/01 0306 Report Impression - Status: SIGNED Entered: 10/01/2024927 IMPRESSION: 1. Likely moderate ileus/enteritis. Mild partial small bowel obstruction not excluded. 2. Fullness of the renal collecting systems bilaterally, greatest on the right. Electronically signed by: Barry Klein MD 2024 09:26 AM CDT RP Impression By: [place] - Barry Klein M.D. Diagnosis, Assessment Plan Free Text A P: s/p simple prostatectomy - hematuria after coughing. CBI restarted - continue cbi and monitor at 1837 [facility] #:[id number] END OF REPORT [facility] 2024 14:42:00 [facility] ([facility]) Hospitalist History Physical REPORT#:[id number] REPORT STATUS: Signed REPORT INITIALIZATION DATE:10/01/24 TIME: 1441 PATIENT: MATHEW CASTILLO UNIT #: [id number] ROOM[facility]BED: [address] : 59 AGE: 64 SEX: M ATTEND: Melissa Khan DO ADM AUTHOR: Pablo Davenport MD R1 REPT SERVICE DT/TIME: 10/01/24 1442 * ALL edits or amendments must be made on the electronic/computer document * Pablo Davenport 10/01/24 1442: History of Present Illness HPI Chief complaint: HEMATURIA;S/P PROSTECTECTOMY 09/28 HPI: 64-year-old male with a past medical history of hypertension, schizophrenia, TURP is presenting to the hospital for vomiting and shortness of breath as well as bloody urine. Patient had a TURP on Friday by Dr. Del Toro was discharged on the with a Mercer. When he got home he had had meatloaf and Jell-O and then vomited and could not catch his breath after which is when he went to the hospital in [place]. There and they did a CT abdomen pelvis which showed small bowel obstruction or ileus. Patient states he usually does not have frequent bowel movements however he has not had a bowel movement since Friday. He also denies passing any gas. Patient has had a substantial amount of bloody urine since the TURP and is on CBI. Currently patient still endorses nausea and would not like to eat because he thinks he may vomit. SHX: 1 pack a day for 50 years, denies alcohol, denies drugs FH X: None Allergies: None Surgeries: TURP History Past medical history: Reports: Hypertension, BPH, Schizophrenia. Additional surgical history: None reported Additional family history: Noncontributory Alcohol use: Denies EtOH use Drug use: Denies recreational drugs Smoking status for patients 13 years old or older: Former Smoker Medication/Allergy-Vaccine Hx Allergies: Coded Allergies: ibuprofen (HEADACHE 10/01/24) Review of Systems Respiratory: Reports: SOB. GI: Reports: nausea, vomiting. : Reports: hematuria. All systems rev neg: except as marked Free Text ROS Notes Free Text ROS Notes: All 12 systems reviwed and negative except as noted in HPI Objective General VS/I O: Vital Signs: Date Time Temp Pulse Resp B/P B/P Pulse O2 O2 Flow FiO2 Mean Ox Delivery Rate 10/01 1031 Nasal 3.5 cannula 10/01 0715 78 17 149/79 107 93 10/01 0615 78 18 145/78 105 94 10/01 0545 83 23 163/85 118 95 10/01 0500 75 20 141/78 104 95 10/01 0217 98.2 97 16 148/84 100 Room air 24 hour I O ending at 0700: 10/01 0700 09/30 1900 Intake Total Output Total Balance Patient 68.182 kg Weight Weight Stated/Reported Measurement Method PATIENT WEIGHT: Weight (lb): Weight (oz): Weight (kg): 68.182 Medications: Active Meds + DC'd Last 24 Hrs Tamsulosin HCl (Flomax 0.4 mg) 0.4 MG DAILY PO Haloperidol (HALDOL) 15 MG BID PO Hydroxyzine Pamoate (VISTARIL) 50 MG TID PO Acetaminophen (TYLENOL) 650 MG Q4H PRN PRN PO Dextrose/Water (DEXTROSE 10% IN WATER) 125 ML ASDIR PRN IV (CKD) Dextrose/Water (DEXTROSE 10% IN WATER) 250 ML ASDIR PRN IV (CKD) Glucagon (GLUCAGON) 1 MG ASDIR PRN IM Hydralazine HCl (APRESOLINE) 10 MG Q6H PRN PRN IV Morphine Sulfate (morphine SULFATE) 2 MG Q4H PRN PRN IV Ondansetron HCl (ZOFRAN) 4 MG Q4H PRN PRN IV Lactated Ringer's (LACTATED RINGERS) 1,000 ML .Q9H6M IV Physical Exam General appearance: alert, awake, oriented Head/Eyes: atraumatic Cardiovascular: normal heart sounds, regular rate rhythm Respiratory: aerating well, clear to auscultation, symmetric expansion Abdomen: non-tender, normal bowel sounds, soft, no distention Extremities: moves all Neuro/TONSORIAL ARTIST: alert, oriented X 3 Skin: dry, intact Psychiatry: normal affect Results Findings/Data: Laboratory Tests 10/01 0210 Chemistry Sodium (134 - 147 mEq/L) 139 Potassium (3.4 - 5.0 mEq/L) 4.2 Chloride (100 - 108 mEq/L) 104 Carbon Dioxide (21 - 33 mEq/l) 27 Anion Gap (0 - 20) 12 BUN (7 - 25 mg/dL) 16 Creatinine (0.6 - 1.3 mg/dL) 1.1 Glomerular Filtr Rate (80 - 90) 74.5 L Glucose (77 - 141 mg/dL) 144 H Calcium (8.0 - 10.5 mg/dL) 8.3 Total Bilirubin (0.0 - 1.0 mg/dL) 0.90 AST (8 - 34 IUnit/L) 16 ALT (10 - 49 IUnit/L) 11 Total Alk Phosphatase (20 - 125 IUnit/L) 61 Total Protein (5.7 - 8.2 g/dL) 6.5 Albumin (3.4 - 5.0 g/dL) 3.30 L Laboratory Tests 10/01 0210 Hematology WBC (4.5 - 11.0 x10 3/uL) 14.4 H RBC (4.00 - 5.60 x10 6/uL) 4.28 Hgb (12.5 - 16.9 g/dL) 12.1 L Hct (37.5 - 50.7 %) 36.8 L MCV (81.0 - 99.0 fL) 86.0 MCH (27.0 - 33.0 pg) 28.3 MCHC (33.0 - 37.0 g/dL) 32.9 L RDW (11.5 - 14.5 %) 14.1 Plt Count (150 - 400 x10 3/uL) 203 MPV (7.0 - 9.0 fL) 10.3 H Neut % (Auto) (56.0 - 77.0 %) 96.2 H Lymph % (Auto) (14.0 - 32.0 %) 1.7 L Culberson % (Auto) (4.8 - 9.0 %) 1.2 L Eos % (Auto) (0.3 - 3.7 %) 0.0 L Baso % (Auto) (0.0 - 2.0 %) 0.2 Neut # (Auto) (2.0 - 7.6 x10 3/uL) 13.82 H Lymph # (Auto) (1.0 - 3.8 x10 3/uL) 0.24 L Culberson # (Auto) (0.1 - 0.8 x10 3/uL) 0.17 Eos # (Auto) (0.0 - 0.2 x10 3/uL) 0.00 Baso # (Auto) (0.0 - 0.2 x10 3/uL) 0.03 Abs Immat Gran (auto) (0.00 - 0.03 x10 3/uL) 0.10 H Immature Gran % (0.0 - 2.0 %) 0.7 Nucleated RBC % (0 - 0 %) 0.0 Nucleated RBCs # (Man) (0.0 - 0.1 x10 3/uL) 0.00 Laboratory Tests 06/27 0210 Urines Urine Color (YEL/STRAW) RED H Urine Appearance (CLEAR) CLOUDY H Urine pH (5.0 - 7.0) 7.0 Ur Specific [place] (1.005 - 1.030) 1.010 Urine Protein (NEGATIVE) 4+ H Urine Glucose (UA) (NEGATIVE) NEGATIVE Urine Ketones (NEGATIVE) NEGATIVE Urine Blood (NEGATIVE) 5+ Urine Nitrite (NEGATIVE) NEGATIVE Urine Bilirubin (NEGATIVE) NEGATIVE Urine Urobilinogen (0.2 - 1.0 mg/dL) 0.2 Ur Leukocyte Esterase (NEGATIVE) NEGATIVE Urine RBC (0 - 3 RBC/HPF) >50 H Urine WBC (0 - 3 WBC/HPF) 4-9 H Ur Squamous Epith Cells (NONE SEEN /HPF) NONE SEEN Urine Bacteria (NONE SEEN /HPF) TRACE Radiology data: Recent Impressions: RADIOLOGY - XR ABDOMEN 1V (KUB) 10/01 0306 Report Impression - Status: SIGNED Entered: 2024 0928 IMPRESSION: 1. Likely moderate ileus/enteritis. Mild partial small bowel obstruction not excluded. 2. Fullness of the renal collecting systems bilaterally, greatest on the right. Electronically signed by: Barry Klein MD 2024 09:26 AM PriceSpot[employer] enStage Impression By: Dee Dee - Barry Klein M.D. Diagnosis, Assessment Plan Free Text DxA P Notes Free Text DxA P Notes: 64-year-old male, history of recent TURP came to ED with c/o urinary retention, obstruction was seen at the ER in [facility], where they were able to place a Mercer. #SBO KUB N.p.o. plus IV fluids Encourage activity GEN surge consulted Monitor #Hematuria status post TURP Monitor hemoglobin Urology consulted management per them #Schizophrenia Continue home meds #Hypertension Monitor continue home meds #BPH Continue home meds Diet: N.p.o. DVT PPx: SCDs GI PPx: None Bowel regimen: Miralax Melissa Kapadia 10/02/24 0831: Attestations Teaching Physician Attestation 1st visit w/ resident: I was present with the resident during the history and exam. I discussed the case with the resident and agree with the findings and plan as documented in the resident's note. at 1838 at 0840 RPT #:[id number] END OF REPORT [facility] 2024 12:52:00 [facility] ([facility]) General Surgery Consult Note REPORT#:[id number] REPORT STATUS: Signed REPORT INITIALIZATION DATE:10/01/24 TIME: 1252 PATIENT: MATHEW CASTILLO UNIT #: [id number] ROOM/BED: [place] [address] : 58 AGE: 64 SEX: M ATTEND: Melissa Khan DO ADM AUTHOR: Debbie Peralta MD R2 REPT SERVICE DT/TIME: 10/01/24 1252 * ALL edits or amendments must be made on the electronic/computer document * Debbie Peralta F 10/01/24 1252: History of Present Illness PCP: PCP: Lakhwinder Guillermo MD HPI: 64-year-old male with past medical history of hypertension and BPH presented to [facility] after experiencing abdominal pain and nausea vomiting. Imaging studies indicative of small bowel obstruction. General surgery consulted for surgical recommendations. History - Adult longitudinal Past medical history: Reports: Hypertension, BPH, Schizophrenia. Additional surgical history: None reported Additional family history: Noncontributory Alcohol use: Denies EtOH use Drug use: Denies recreational drugs Smoking status for patients 13 years old or older: Former Smoker Allergies: Coded Allergies: ibuprofen (HEADACHE 10/01/24) Review of Systems GI: Denies: abdominal pain, nausea. All systems rev neg: except as marked Objective Physical Exam VS/I O Last Documented: Result Date Time O2 Delivery Nasal cannula 10/01 1031 O2 Flow Rate 3.5 10/01 1031 Pulse Ox 93 10/01 0715 B/P 149/79 10/01 0715 B/P Mean 107 10/01 0715 Pulse 78 10/01 0715 Resp 17 10/01 0715 Temp 36.8 10/01 0217 Vital Signs Date Temp Pulse Resp B/P B/P Mean Pulse Ox FiO2 10/01 36.8 75-97 16-23 141-163/78-85 104-118 93-100 24 hour I O ending at 0700: 10/01 0700 09/30 1900 Intake Total Output Total Balance Patient 68.182 kg Weight Weight Stated/Reported Measurement Method PATIENT WEIGHT: Weight (lb): Weight (oz): Weight (kg): 68.182 General appearance: alert, awake, oriented HEENT: anicteric, atraumatic Neck: full range of motion Cardiovascular: regular rate and rhythm Chest: no tenderness Respiratory: aerating well Abdomen: non-tender, soft, no distention, no guarding, no hernia, no mass/ organomegaly Extremities: moves all Musculoskeletal: full range of motion Neuro/TONSORIAL ARTIST: alert, oriented x 3, CNII-XII intact Skin: dry, intact, normal color Lymphatics: no lymphadenopathy Psychiatry: normal affect Results Findings/Data: Laboratory Tests: 10/01 0210 Chemistry Sodium (134 - 147 mEq/L) 139 Potassium (3.4 - 5.0 mEq/L) 4.2 Chloride (100 - 108 mEq/L) 104 Carbon Dioxide (21 - 33 mEq/l) 27 Anion Gap (0 - 20) 12 BUN (7 - 25 mg/dL) 16 Creatinine (0.6 - 1.3 mg/dL) 1.1 Glomerular Filtr Rate (80 - 90) 74.5 L Glucose (77 - 141 mg/dL) 144 H Calcium (8.0 - 10.5 mg/dL) 8.3 Total Bilirubin (0.0 - 1.0 mg/dL) 0.90 AST (8 - 34 IUnit/L) 16 ALT (10 - 49 IUnit/L) 11 Total Alk Phosphatase (20 - 125 IUnit/L) 61 Total Protein (5.7 - 8.2 g/dL) 6.5 Albumin (3.4 - 5.0 g/dL) 3.30 L Hematology WBC (4.5 - 11.0 x10 3/uL) 14.4 H RBC (4.00 - 5.60 x10 6/uL) 4.28 Hgb (12.5 - 16.9 g/dL) 12.1 L Hct (37.5 - 50.7 %) 36.8 L MCV (81.0 - 99.0 fL) 86.0 MCH (27.0 - 33.0 pg) 28.3 MCHC (33.0 - 37.0 g/dL) 32.9 L RDW (11.5 - 14.5 %) 14.1 Plt Count (150 - 400 x10 3/uL) 203 MPV (7.0 - 9.0 fL) 10.3 H Neut % (Auto) (56.0 - 77.0 %) 96.2 H Lymph % (Auto) (14.0 - 32.0 %) 1.7 L Culberson % (Auto) (4.8 - 9.0 %) 1.2 L Eos % (Auto) (0.3 - 3.7 %) 0.0 L Baso % (Auto) (0.0 - 2.0 %) 0.2 Neut # (Auto) (2.0 - 7.6 x10 3/uL) 13.82 H Lymph # (Auto) (1.0 - 3.8 x10 3/uL) 0.24 L [place] # (Auto) (0.1 - 0.8 x10 3/uL) 0.17 Eos # (Auto) (0.0 - 0.2 x10 3/uL) 0.00 Baso # (Auto) (0.0 - 0.2 x10 3/uL) 0.03 Abs Immat Gran (auto) (0.00 - 0.03 x10 3/uL) 0.10 H Immature Gran % (0.0 - 2.0 %) 0.7 Nucleated RBC % (0 - 0 %) 0.0 Nucleated RBCs # (Man) (0.0 - 0.1 x10 3/uL) 0.00 Urines Urine Color (YEL/STRAW) RED H Urine Appearance (CLEAR) CLOUDY H Urine pH (5.0 - 7.0) 7.0 Ur Specific [place] (1.005 - 1.030) 1.010 Urine Protein (NEGATIVE) 4+ H Urine Glucose (UA) (NEGATIVE) NEGATIVE Urine Ketones (NEGATIVE) NEGATIVE Urine Blood (NEGATIVE) 5+ Urine Nitrite (NEGATIVE) NEGATIVE Urine Bilirubin (NEGATIVE) NEGATIVE Urine Urobilinogen (0.2 - 1.0 mg/dL) 0.2 Ur Leukocyte Esterase (NEGATIVE) NEGATIVE Urine RBC (0 - 3 RBC/HPF) >50 H Urine WBC (0 - 3 WBC/HPF) 4-9 H Ur Squamous Epith Cells (NONE SEEN /HPF) NONE SEEN Urine Bacteria (NONE SEEN /HPF) TRACE Recent Impressions: RADIOLOGY - XR ABDOMEN 1V (KUB) 10/01 0306 Report Impression - Status: SIGNED Entered: 10/01/2024927 IMPRESSION: 1. Likely moderate ileus/enteritis. Mild partial small bowel obstruction not excluded. 2. Fullness of the renal collecting systems bilaterally, greatest on the right. Electronically signed by: Barry Klein MD 2024 09:26 AM CDT RP Impression By: Dee Dee - Barry Klein M.D. Diagnosis, Assessment Plan Free Text DxA P Notes Free Text DxA P Notes: 64-year-old male with past medical history of hypertension and BPH presented to [facility] after experiencing abdominal pain and nausea vomiting. Imaging studies indicative of small bowel obstruction. General surgery consulted for surgical recommendations. * No acute surgical intervention * Will get KUB to assess gas pattern * NPO + mIVF * Pain control Multimodal pain regimen * Activity as tolerated * Rest of care per primary team Monty Randhawa 10/02/24 0907: Attestations Physician Attestation Agree w/findings plan: I have personally interviewed and examined the pt. All charts, labs and imaging studies were reviewed. I agree with the [facility]'s exam and plan. at 1254 at 0908 RPT #:[id number] END OF REPORT [facility] 2024 02:26:00 [facility] ([facility]) EMERGENCY PROVIDER REPORT REPORT#:[id number] REPORT STATUS: Signed DATE:10/01/24 TIME: 225 PATIENT: MATHEW CASTILLO UNIT #: [id number] ROOM/BED: [place] [address] : 59 AGE: 64 SEX:M PCP PHYS: Lakhwinder Guillermo MD SERVICE AUTHOR: Adam Callahan MD REP SRV REP SRV TM: 0226 * ALL edits or amendments must be made on the electronic/computer document * HPI-General Illness Free Text HPI Notes Free Text HPI Notes 64-year-old male, history of hypertension. Patient was recently in the hospital for BPH, status post TURP. Patient was seen and evaluated at [facility] ER, there was found to have urinary retention, had a Mercer placed, with gross hematuria. In addition, CT abdomen pelvis demonstrated ileus versus small bowel obstruction. Patient sent here for further evaluation. General Initial Greet Date/Time 10/01/24 0156 PCP [facility] unassigned Recent hosp w/ Xpert MD Presentation Chief Complaint Breathing problem Review of Systems Review of Systems Respiratory Reports: Shortness of breath. Denies: Cough, productive. Cardiovascular Denies: Chest pain. GI Denies: Abdominal pain, Nausea, Vomiting. Male Reports: Hematuria. Neurologic Reports: Generalized weakness. Past Medical History - Adult Stated Complaint HEMATURIA;S/P PROSTECTECTOMY 09/28 Allergies Coded Allergies: No Known Allergies (09/24/24) Home Medications Active Scripts KETOROLAC (TORADOL) 10 MG PO Q6H PRN PRN PAIN KETOROLAC (TORADOL) 10 MG PO Q6H PRN PRN PAIN #20 TABS Prov: 09/30/24 GABAPENTIN (NEURONTIN) 300 MG PO TID PRN spasms GABAPENTIN (NEURONTIN) 300 MG PO TID PRN spasms #90 CAPS Prov: 09/30/24 NITROFURANTOIN/NITROFURAN MAC (MACROBID) 100 MG PO BID NITROFURANTOIN/NITROFURAN MAC (MACROBID) 100 MG PO BID #14 CAPS Prov: 09/30/24 OXYBUTYNIN 5 MG PO TID PRN spasms OXYBUTYNIN 5 MG PO TID PRN spasms #60 TABS Prov: 09/30/24 Reported Medications BENZTROPINE 1 MG PO BEDTIME HALOPERIDOL (HALDOL) 15 MG PO BID TAMSULOSIN ER 0.4 MG PO DAILY hydrOXYzine PAMOATE (VISTARIL) 50 MG PO TID Discontinued Reported Medications TAMSULOSIN ER Review of Nursing Notes Rev avail, and agree Past Medical History: Reports: Hypertension, BPH, Schizophrenia. Additional Surgical History None reported Additional Family History Noncontributory Alcohol Use Denies EtOH use Drug Use Denies recreational drugs Smoking status for patients 13 years old or older: Former Smoker Physical Exam Vital Signs Vital Signs First Documented: Result Date Time Pulse Ox 100 06/27 0217 B/P 148/84 10/01 216 O2 Delivery Room air 10/01 216 Temp 36.8 10/01 216 Pulse 97 10/01 216 Resp 16 10/01 216 Last Documented: Result Date Time Pulse Ox 100 10/01 216 B/P 148/84 10/01 216 O2 Delivery Room air 10/01 216 Temp 36.8 10/01 216 Pulse 97 10/01 216 Resp 16 10/01 216 Review of Vital Signs Reviewed Physical Exam General/Const Text/Dict Notes Chronically ill-appearing MS Head Head Normocephalic Eyes Eyes PERRL Resp/Chest Respiratory/Chest Breath sounds NL, Breath sounds = bilat, No respiratory distress, No rales, No rhonchi, No wheezing Cardiovascular Cardiovascular Heart rate NL, Regular rhythm, Heart sounds NL, Cap refill not delayed, Peripheral circulation NL Abdomen/GI Abdomen/GI Soft, Non-tender, No guarding, No rebound Genitourinary Text/Dict Notes Mercer in place, gross hematuria Neurologic Neurologic Oriented X3, Speech NL, No motor deficits, No sensory deficits Interpretation Diagnostics Lab Results Interpretation Results Laboratory Tests 10/01/24209: [Embedded Image Not Available] Laboratory Tests: 10/01 209 Chemistry Sodium (134 - 147 mEq/L) 139 Potassium (3.4 - 5.0 mEq/L) 4.2 Chloride (100 - 108 mEq/L) 104 Carbon Dioxide (21 - 33 mEq/l) 27 Anion Gap (0 - 20) 12 BUN (7 - 25 mg/dL) 16 Creatinine (0.6 - 1.3 mg/dL) 1.1 Glomerular Filtr Rate (80 - 90) 74.5 L Glucose (77 - 141 mg/dL) 144 H Calcium (8.0 - 10.5 mg/dL) 8.3 Total Bilirubin (0.0 - 1.0 mg/dL) 0.90 AST (8 - 34 IUnit/L) 16 ALT (10 - 49 IUnit/L) 11 Total Alk Phosphatase (20 - 125 IUnit/L) 61 Total Protein (5.7 - 8.2 g/dL) 6.5 Albumin (3.4 - 5.0 g/dL) 3.30 L Hematology WBC (4.5 - 11.0 x10 3/uL) 14.4 H RBC (4.00 - 5.60 x10 6/uL) 4.28 Hgb (12.5 - 16.9 g/dL) 12.1 L Hct (37.5 - 50.7 %) 36.8 L MCV (81.0 - 99.0 fL) 86.0 MCH (27.0 - 33.0 pg) 28.3 MCHC (33.0 - 37.0 g/dL) 32.9 L RDW (11.5 - 14.5 %) 14.1 Plt Count (150 - 400 x10 3/uL) 203 MPV (7.0 - 9.0 fL) 10.3 H Neut % (Auto) (56.0 - 77.0 %) 96.2 H Lymph % (Auto) (14.0 - 32.0 %) 1.7 L [place] % (Auto) (4.8 - 9.0 %) 1.2 L Eos % (Auto) (0.3 - 3.7 %) 0.0 L Baso % (Auto) (0.0 - 2.0 %) 0.2 Neut # (Auto) (2.0 - 7.6 x10 3/uL) 13.82 H Lymph # (Auto) (1.0 - 3.8 x10 3/uL) 0.24 L [place] # (Auto) (0.1 - 0.8 x10 3/uL) 0.17 Eos # (Auto) (0.0 - 0.2 x10 3/uL) 0.00 Baso # (Auto) (0.0 - 0.2 x10 3/uL) 0.03 Abs Immat Gran (auto) (0.00 - 0.03 x10 3/uL) 0.10 H Immature Gran % (0.0 - 2.0 %) 0.7 Nucleated RBC % (0 - 0 %) 0.0 Nucleated RBCs # (Man) (0.0 - 0.1 x10 3/uL) 0.00 Urines Urine Color (YEL/STRAW) RED H Urine Appearance (CLEAR) CLOUDY H Urine pH (5.0 - 7.0) 7.0 Ur Specific [place] (1.005 - 1.030) 1.010 Urine Protein (NEGATIVE) 4+ H Urine Glucose (UA) (NEGATIVE) NEGATIVE Urine Ketones (NEGATIVE) NEGATIVE Urine Blood (NEGATIVE) 5+ Urine Nitrite (NEGATIVE) NEGATIVE Urine Bilirubin (NEGATIVE) NEGATIVE Urine Urobilinogen (0.2 - 1.0 mg/dL) 0.2 Ur Leukocyte Esterase (NEGATIVE) NEGATIVE Urine RBC (0 - 3 RBC/HPF) >50 H Urine WBC (0 - 3 WBC/HPF) 4-9 H Ur Squamous Epith Cells (NONE SEEN /HPF) NONE SEEN Urine Bacteria (NONE SEEN /HPF) TRACE Re-Evaluation MDM Free Text MDM Notes Free Text MDM Notes 64-year-old male, history of recent TURP. - Had urinary retention, obstruction, was seen at the ER in [facility], where they were able to place a Mercer. - Patient also reporting shortness of breath, received albuterol, ipratropium, magnesium, steroid - Normal white count, creatinine 1.38, with GFR 57, NT proBNP 135. CT demonstrating moderate right hydronephrosis, pulmonary vascular congestion. - In addition, ileus versus developing bowel obstruction, colitis. - Will admit, continuous bladder irrigation, consult general surgery, as well as urology. Patient Discharge Departure Vital Signs/Condition Vital Signs First Documented: Result Date Time Pulse Ox 100 10/01 0217 B/P 148/84 10/01 216 O2 Delivery Room air 10/01 216 Temp 36.8 10/01 216 Pulse 97 10/01 216 Resp 16 10/01 216 Last Documented: Result Date Time Pulse Ox 100 10/01 0217 B/P 148/84 10/017 O2 Delivery Room air 10/01 216 Temp 36.8 10/017 Pulse 97 10/01 021 Resp 16 10/01 216 All vital signs available at the time of this entry have been reviewed. Clinical Impression Clinical Impression Primary Impression: Ileus Secondary Impressions: Hematuria, SOB (shortness of breath), Urinary retention Disposition Decision Hospitalize Hosp Physician Name Pablo Cano MD )( Accepts Hospitalization Yes )( Reason for Hospitalization urinary retention, SBO vs ileus )( Accepted Time 0230 )( Accepted Date 10/01/24 Call Information agrees with eval, agrees with plan at 0358 [facility] #:[id number] END OF REPORT [facility] 2024-09-30 11:54:00 [facility] ([facility]) Discharge Summary REPORT#:[id number] REPORT STATUS: Signed REPORT INITIALIZATION DATE:09/30/24 TIME: 115 PATIENT: MATHEW CASTILLO UNIT #: [id number] ROOM[facility]BED: [facility] : 59 AGE: 64 SEX: M ATTEND: Dave Del Toro MD ADM AUTHOR: Dave Del Toro MD REPT SERVICE DT/TIME: 09/30/24 1154 * ALL edits or amendments must be made on the electronic/computer document * PCP PCP Pending result: pathology General Information Date of admission: Observation Start Date: 09/28/24 Date of admission: 09/29/24 Discharge date: 09/30/24 Discharge diagnosis: Retention, BPH with LUTS Hospital course: Pt did well post-op, initial pain issues - improved over night - home with mercer Consultants: hospitalist Med Rec PCP PCP: PCP: Lakhwinder Guillermo MD Med Rec Discharge meds: Continue taking these medications: BENZTROPINE (BENZTROPINE) 0.5 MG TAB 1 MILLIGRAM ORAL BEDTIME. HALOPERIDOL (HALDOL) 10 MG TAB 15 MILLIGRAM ORAL TWICE DAILY. TAMSULOSIN ER (TAMSULOSIN ER) 0.4 MG CAP.SR.24H 0.4 MILLIGRAM ORAL DAILY. hydrOXYzine PAMOATE (VISTARIL) 50 MG CAP 50 MILLIGRAM ORAL THREE TIMES A DAY. Start taking the following new medications: KETOROLAC (TORADOL) 10 MG TAB 10 MILLIGRAM ORAL EVERY 6 HOURS NEEDED. as needed for PAIN Qty = 20 No Refills GABAPENTIN (NEURONTIN) 300 MG CAP 300 MILLIGRAM ORAL THREE TIMES A DAY. as needed for spasms Qty = 90 No Refills NITROFURANTOIN/NITROFURAN MAC (MACROBID) 100 MG CAP 100 MILLIGRAM ORAL TWICE DAILY. Qty = 14 No Refills Instructions: Until finished. Take with food. OXYBUTYNIN (OXYBUTYNIN) 5 MG TAB 5 MILLIGRAM ORAL THREE TIMES A DAY. as needed for spasms Qty = 60 No Refills Objective VS/I O Last Documented: Result Date Time Pulse Ox 94 09/30 1114 B/P 109/65 06/26 1114 B/P Mean 79.9 09/30 1114 O2 Delivery Room air 09/30 111 Temp 37.1 09/30 1114 Pulse 82 09/30 1114 Resp 16 09/30 1114 FiO2 21 09/30 0751 O2 Flow Rate 2 09/29 1900 24 hour I O ending at 0700: 09/30 0700 09/29 1900 Intake Total 3400 Output Total 6525 7700 Balance -3125 -7700 Intake, Other 3400 Output, Other 2825 Output, Urine 3700 7700 PATIENT WEIGHT: Weight (lb): 153 Weight (oz): 10.6 Weight (kg): 69.700 General appearance: alert, awake, oriented Genitourinary: mercer Treatments Procedures Treatments Procedures: SRAP Discharge Instructions PCP PCP: PCP: Lakhwinder Guillermo MD )( Discharge to: Home/Self Care Discharge Instructions Additional Discharge Routines: Attending Follow-Up, Wound/Dressing Care )( Diet: Regular )( Activity: Do not Submerge Incision, Light Duty )( Wound/dressing care: Do not submerge incision, Drain care, Keep wound clean and dry Follow-up Appointments Attending Physician: Attending Physician: Dave Del Toro MD Attending physician follow up timeframe: In 1-2 weeks Special instructions: Follow up one week for catheter removal at 1155 RPT #:[id number] END OF REPORT [facility] 2024-09-30 11:52:00 [facility] Hospitalist Progress Note REPORT#:[id number] REPORT STATUS: Signed REPORT INITIALIZATION DATE:09/30/24 TIME: 1152 PATIENT: MATHEW CASTILLO UNIT #: [id number] ROOM/BED: [place] [address] : 58 AGE: 64 SEX: M ATTEND: Dave Del Toro MD ADM AUTHOR: Malgorzata Hicks NP REPT SERVICE DT/TIME: 09/30/24 1152 * ALL edits or amendments must be made on the electronic/computer document * Subjective Chief complaint: Status post prostatectomy. Seen resting comfortably in bed. Off CBI. HPI: This is a 63-year-old male patient with past medical history significant for hypertension, BPH, schizophrenia, tobacco use disorder who presented to [facility] for an elective surgery. The patient is now status post robotic assisted simple prostatectomy. Urology is following. Our medicine team was consulted to further assist with medical management. Review of Systems All systems rev neg: except as noted Objective General VS/I O: Vital Signs: Date Time Temp Pulse Resp B/P B/P Pulse O2 O2 Flow FiO2 Mean Ox Delivery Rate 09/30 1114 98.8 82 16 109/65 79.9 94 Room air 09/30 0836 98.4 103 17 132/81 97.9 93 Room air 09/30 0751 91 Room air 21 09/30 0437 98.8 79 125/71 88.9 95 09/29 2328 99.7 78 16 144/74 97.3 93 09/30 2003 97.9 76 17 157/92 113.8 95 09/29 1938 95 Room air 21 09/29 1900 Nasal 2 cannula 09/29 1530 98.5 81 18 138/79 93 Room air 24 hour I O ending at 0700: 09/30 0700 09/29 1900 Intake Total 3400 Output Total 6525 7700 Balance -3125 -7700 Intake, Other 3400 Output, Other 2825 Output, Urine 3700 7700 PATIENT WEIGHT: Weight (lb): 153 Weight (oz): 10.6 Weight (kg): 69.700 Medications: Active Meds + DC'd Last 24 Hrs Tamsulosin HCl (Flomax 0.4 mg) 0.4 MG DAILY PO Benztropine Mesylate (COGENTIN) 0.5 MG BEDTIME PO Fluticasone Propionate (Flonase Nasal [place]) 2 SPRAY BID NASAL (CKD) Haloperidol (HALDOL) 15 MG BID PO Albuterol/Ipratropium (DUONEB) 3 ML RTQ6H NEB Ceftriaxone Sodium (ROCEPHIN 1000MG VIAL) 1,000 MG Q24H IV Sodium Chloride (SODIUM CHLORIDE) 10 ML Hydroxyzine Pamoate (VISTARIL) 50 MG TID PO Albuterol/Ipratropium (DUONEB) 3 ML RTQ4H PRN PRN NEB Ondansetron HCl (ZOFRAN) 4 MG Q6H PRN PRN IV Acetaminophen (TYLENOL) 650 MG Q4H PRN PRN PO Hydralazine HCl (APRESOLINE) 10 MG Q6H PRN PRN IV Enoxaparin Sodium (lovENOX) 40 MG DAILY SUBQ Docusate Sodium (COLACE) 100 MG BID PO Al Hydrox/Mg Hydrox/Simethicone (MYLANTA) 30 ML Q6H PRN PRN PO Hydrocodone Bitart/Acetaminophen (NORCO 5/325) 1 TAB Q4H PRN PRN PO Lactated Ringer's (LACTATED RINGERS) 1,000 ML .[id number] IV (DC) Magnesium Hydroxide (MILK OF MAGNESIA) 30 ML Q6H PRN PRN PO Morphine Sulfate (morphine SULFATE) 4 MG Q4H PRN PRN IV Ondansetron HCl (ZOFRAN) 4 MG Q4H PRN PRN IV Sodium Chloride (SODIUM CHLORIDE BOTTLE) 100 ML ASDIR PRN IRR Sodium Chloride (SODIUM CHLORIDE 0.9% IRRIGATION) 0 ASDIR IRR Ciprofloxacin/Dextrose (CIPRO 400MG/D5W 200ML) 200 ML PREOP ONCALL IV ( CKD) Dietitian nutrition assessment The data set between the solid lines has been imported from the dietitian's assessment. BMI Calculated: 22.0 Nutrition related diagnosis: Nutrition diagnosis details: Nutrition problem: Nutrition etiology: Nutrition signs and symptoms: Nutrition prescription: Dietitian name: Assessment completed: Physical Exam General appearance: alert, awake, oriented Head/Eyes: atraumatic, clear cornea, normocephalic ENT: moist mucosal membranes Neck: full range of motion, non-tender, supple/no meningismus Cardiovascular: normal capillary refill, normal heart sounds, regular rate rhythm Respiratory: aerating well, clear to auscultation, symmetric expansion, no distress Abdomen: non-tender, normal bowel sounds, soft, no distention Genitourinary: no flank pain, no urinary catheter Extremities: moves all, normal capillary refill, normal range of motion Musculoskeletal: normal inspection Neuro/TONSORIAL ARTIST: disoriented, alert, normal speech Considered stroke alert: no Skin: dry, intact, normal color, normal temperature, no rash Psychiatry: unable to evaluate Results Findings/Data: Laboratory Tests 09/30 514 Chemistry Sodium (134 - 147 mEq/L) 138 Potassium (3.4 - 5.0 mEq/L) 3.6 Chloride (100 - 108 mEq/L) 102 Carbon Dioxide (21 - 33 mEq/l) 29 Anion Gap (0 - 20) 11 BUN (7 - 25 mg/dL) 12 Creatinine (0.6 - 1.3 mg/dL) 0.9 Glomerular Filtr Rate (80 - 90) 94.8 H Glucose (77 - 141 mg/dL) 144 H Calcium (8.0 - 10.5 mg/dL) 8.4 Laboratory Tests 09/30 514 Hematology WBC (4.5 - 11.0 x10 3/uL) 10.9 RBC (4.00 - 5.60 x10 6/uL) 4.34 Hgb (12.5 - 16.9 g/dL) 12.3 L Hct (37.5 - 50.7 %) 37.4 L MCV (81.0 - 99.0 fL) 86.2 MCH (27.0 - 33.0 pg) 28.3 MCHC (33.0 - 37.0 g/dL) 32.9 L RDW (11.5 - 14.5 %) 14.4 Plt Count (150 - 400 x10 3/uL) 188 MPV (7.0 - 9.0 fL) 10.4 H Neut % (Auto) (56.0 - 77.0 %) 83.2 H Lymph % (Auto) (14.0 - 32.0 %) 7.2 L [place] % (Auto) (4.8 - 9.0 %) 6.0 Eos % (Auto) (0.3 - 3.7 %) 2.7 Baso % (Auto) (0.0 - 2.0 %) 0.4 Neut # (Auto) (2.0 - 7.6 x10 3/uL) 9.09 H Lymph # (Auto) (1.0 - 3.8 x10 3/uL) 0.79 L [place] # (Auto) (0.1 - 0.8 x10 3/uL) 0.65 Eos # (Auto) (0.0 - 0.2 x10 3/uL) 0.29 H Baso # (Auto) (0.0 - 0.2 x10 3/uL) 0.04 Abs Immat Gran (auto) (0.00 - 0.03 x10 3/uL) 0.06 H Immature Gran % (0.0 - 2.0 %) 0.5 Nucleated RBC % (0 - 0 %) 0.0 Nucleated RBCs # (Man) (0.0 - 0.1 x10 3/uL) 0.00 Diagnosis, Assessment Plan Consultants: hospitalist Plan discussed with: patient, nurse Free Text DxA P Notes Free text DxA P notes: Assessment: Status post robotic assisted prostatectomy Large prostatic adenoma with intravascular median lobe Hypertension Urinary tract infection, resolved unspecified Acute hypoxic respiratory failure, requiring 2 L of oxygen via nasal cannula, likely secondary to surgery Mild leukocytosis, likely reactive Tobacco use disorder History of hypertension History of BPH History of schizophrenia Plan: Postoperative care per urology On CBI, defer management to urology WBCs mildly elevated, 12,000 today. Likely reactive from surgery. Currently patient is afebrile with stable vital signs. Monitor closely UA from 09/24 + UTI. Not on any antibiotics at this time. Will start IV Rocephin empirically Obtain urine culture Currently on 2 L of oxygen via nasal cannula. Wean as tolerated to keep O2 sats greater than 92% Check chest x-ray to rule out pneumonia Pulmonary toileting with nebs/I-S/Flonase Home meds restarted Regular diet Check labs tomorrow a.m. Lovenox for DVT prophylaxis Plan discussed with the patient Thank you for allowing us to participate in the care of this patient. Will continue to follow along with you. 09/30/24 No acute events overnight Off CBI Chest x-ray is negative for any acute abnormalities Currently on room air. Denies shortness of breath Urine culture sent. Follow closely On IV Rocephin empirically. Urology discharging on Macrobid and will be following up as outpatient Okay to discharge from medicine standpoint DC orders placed Plan discussed with patient and RN at 1346 RPT #:[id number] END OF REPORT [facility] 2024-09-29 18:48:00 [facility] ([facility]) Urology Progress Note REPORT#:[id number] REPORT STATUS: Signed REPORT INITIALIZATION DATE:09/29/24 TIME: 1847 PATIENT: MATHEW CASTILLO UNIT #: [id number] ROOM/BED: [place] [address] : 59 AGE: 63 SEX: M ATTEND: Dave Del Toro MD ADM AUTHOR: Dave Del Toro MD REPT SERVICE DT/TIME: 09/29/241847 * ALL edits or amendments must be made on the electronic/computer document * Subjective Patient reports: abdominal pain Objective General VS/I O: Last Documented: Result Date Time Pulse Ox 93 09/29 1530 B/P 138/79 09/29 1530 O2 Delivery Room air 09/29 1530 Temp 36.9 09/29 1530 Pulse 81 09/29 1530 Resp 18 09/29 1530 B/P Mean 106.1 09/29 1101 FiO2 28 09/29 1003 O2 Flow Rate 2 09/29 1003 24 hour I O ending at 0700: 09/29 0700 09/28 1900 Intake Total 20744 Output Total 2500 Balance -2500 -225 Intake, Other 82077 Output, Other 36791 Output, Urine 2500 1075 PATIENT WEIGHT: Weight (lb): 153 Weight (oz): 10.6 Weight (kg): 69.700 Physical Exam General appearance: alert, awake Genitourinary: Genitourinary: catheter in situ, cont. bladder irrig. run. Results Findings/Data: Laboratory Tests: 09/29 0358 Chemistry Sodium (134 - 147 mEq/L) 139 Potassium (3.4 - 5.0 mEq/L) 4.2 Chloride (100 - 108 mEq/L) 103 Carbon Dioxide (21 - 33 mEq/l) 28 Anion Gap (0 - 20) 12 BUN (7 - 25 mg/dL) 12 Creatinine (0.6 - 1.3 mg/dL) 0.9 Glomerular Filtr Rate (80 - 90) 95.4 H Glucose (77 - 141 mg/dL) 112 Calcium (8.0 - 10.5 mg/dL) 8.3 Hematology WBC (4.5 - 11.0 x10 3/uL) 12.3 H RBC (4.00 - 5.60 x10 6/uL) 4.47 Hgb (12.5 - 16.9 g/dL) 12.7 Hct (37.5 - 50.7 %) 38.2 MCV (81.0 - 99.0 fL) 85.5 MCH (27.0 - 33.0 pg) 28.4 MCHC (33.0 - 37.0 g/dL) 33.2 RDW (11.5 - 14.5 %) 14.2 Plt Count (150 - 400 x10 3/uL) 189 MPV (7.0 - 9.0 fL) 10.3 H Neut % (Auto) (56.0 - 77.0 %) 85.3 H Lymph % (Auto) (14.0 - 32.0 %) 8.0 L [place] % (Auto) (4.8 - 9.0 %) 6.2 Eos % (Auto) (0.3 - 3.7 %) 0.1 L Baso % (Auto) (0.0 - 2.0 %) 0.1 Neut # (Auto) (2.0 - 7.6 x10 3/uL) 10.53 H Lymph # (Auto) (1.0 - 3.8 x10 3/uL) 0.99 L [place] # (Auto) (0.1 - 0.8 x10 3/uL) 0.76 Eos # (Auto) (0.0 - 0.2 x10 3/uL) 0.01 Baso # (Auto) (0.0 - 0.2 x10 3/uL) 0.01 Abs Immat Gran (auto) (0.00 - 0.03 x10 3/uL) 0.04 H Immature Gran % (0.0 - 2.0 %) 0.3 Nucleated RBC % (0 - 0 %) 0.0 Nucleated RBCs # (Man) (0.0 - 0.1 x10 3/uL) 0.00 Diagnosis, Assessment Plan Free Text A P: pod#1 RASP - doing well - still some pain - ambulate and pain control - D/C home tomorrw with mercer Consultants: hospitalist at 1849 RPT #:[id number] END OF REPORT [facility] 2024-09-29 10:57:00 [facility] ([facility]) Hospitalist Consultation REPORT#:[id number] REPORT STATUS: Signed REPORT INITIALIZATION DATE:09/29/24 TIME: 105 PATIENT: MATHEW CASTILLO UNIT #: [id number] ROOM/BED: [place] [address] : 59 AGE: 63 SEX: M ATTEND: Dave Del Toro MD ADM AUTHOR: Malgorzata Hicks MECHANICAL SYSTEMS DESIGNER REPT SERVICE DT/TIME: 09/29/24 105 * ALL edits or amendments must be made on the electronic/computer document * History of Present Illness Requesting Clinician: Dr. Dave Del Toro Reason for consult: Medical management Chief complaint: Status post prostatectomy PCP: PCP: Lakhwinder Guillermo MD HPI: This is a 63-year-old male patient with past medical history significant for hypertension, BPH, schizophrenia, tobacco use disorder who presented to [facility] for an elective surgery. The patient is now status post robotic assisted simple prostatectomy. Urology is following. Our medicine team was consulted to further assist with medical management. History - Adult longitudinal Past medical history: Reports: Hypertension, BPH, Schizophrenia. Additional surgical history: None reported Additional family history: Noncontributory Alcohol use: Denies EtOH use Drug use: Denies recreational drugs Smoking status for patients 13 years old or older: Current every day smoker Date last smoked: 09/28/24 Packs per day: 1 Years smoked: 40 Pack years: 40 Allergies: Coded Allergies: No Known Allergies (09/24/24) Review of Systems All systems rev neg: except as marked Objective VS/I O Last Documented: Result Date Time Pulse Ox 97 09/29 1101 B/P 148/85 09/29 1101 B/P Mean 106.1 09/29 1101 O2 Delivery Nasal cannula 09/29 1101 Temp 98.2 09/29 1101 Pulse 78 09/29 1101 Resp 17 09/29 1101 FiO2 28 09/29 1003 O2 Flow Rate 2 09/29 1003 24 hour I O ending at 0700: 09/29 0700 09/28 1900 Intake Total Output Total 2499 Balance -2500 -225 Intake, Other 35698 Output, Other 99817 Output, Urine 2500 1075 General appearance: confused, alert, awake Head/Eyes: atraumatic, clear cornea, normocephalic ENT: moist mucosal membranes Neck: full range of motion, non-tender, supple/no meningismus Cardiovascular: normal capillary refill, normal heart sounds, regular rate rhythm Respiratory: aerating well, clear to auscultation, symmetric expansion, no distress Abdomen: non-tender, normal bowel sounds, soft, no distention Genitourinary: no flank pain, no urinary catheter Extremities: moves all, normal capillary refill, normal range of motion Musculoskeletal: normal inspection Neuro/TONSORIAL ARTIST: disoriented, alert, normal speech Considered stroke alert: no Skin: dry, intact, normal color, normal temperature, no rash Psychiatry: unable to evaluate Results Findings/Data: Laboratory Tests: 09/29 0358 Chemistry Sodium (134 - 147 mEq/L) 139 Potassium (3.4 - 5.0 mEq/L) 4.2 Chloride (100 - 108 mEq/L) 103 Carbon Dioxide (21 - 33 mEq/l) 28 Anion Gap (0 - 20) 12 BUN (7 - 25 mg/dL) 12 Creatinine (0.6 - 1.3 mg/dL) 0.9 Glomerular Filtr Rate (80 - 90) 95.4 H Glucose (77 - 141 mg/dL) 112 Calcium (8.0 - 10.5 mg/dL) 8.3 Hematology WBC (4.5 - 11.0 x10 3/uL) 12.3 H RBC (4.00 - 5.60 x10 6/uL) 4.47 Hgb (12.5 - 16.9 g/dL) 12.7 Hct (37.5 - 50.7 %) 38.2 MCV (81.0 - 99.0 fL) 85.5 MCH (27.0 - 33.0 pg) 28.4 MCHC (33.0 - 37.0 g/dL) 33.2 RDW (11.5 - 14.5 %) 14.2 Plt Count (150 - 400 x10 3/uL) 189 MPV (7.0 - 9.0 fL) 10.3 H Neut % (Auto) (56.0 - 77.0 %) 85.3 H Lymph % (Auto) (14.0 - 32.0 %) 8.0 L [place] % (Auto) (4.8 - 9.0 %) 6.2 Eos % (Auto) (0.3 - 3.7 %) 0.1 L Baso % (Auto) (0.0 - 2.0 %) 0.1 Neut # (Auto) (2.0 - 7.6 x10 3/uL) 10.53 H Lymph # (Auto) (1.0 - 3.8 x10 3/uL) 0.99 L [place] # (Auto) (0.1 - 0.8 x10 3/uL) 0.76 Eos # (Auto) (0.0 - 0.2 x10 3/uL) 0.01 Baso # (Auto) (0.0 - 0.2 x10 3/uL) 0.01 Abs Immat Gran (auto) (0.00 - 0.03 x10 3/uL) 0.04 H Immature Gran % (0.0 - 2.0 %) 0.3 Nucleated RBC % (0 - 0 %) 0.0 Nucleated RBCs # (Man) (0.0 - 0.1 x10 3/uL) 0.00 Diagnosis, Assessment Plan Orders: Procedure Date/time Status CBC W/AUTO DIFF 09/30 0500 Active BASIC METABOLIC PANEL 09/30 0500 Active Consultants: hospitalist Plan discussed with: patient Time spent: >50% spent on counseling/coordination of care: yes Free Text DxA P Notes Free Text DxA P Notes: Assessment: Status post robotic assisted prostatectomy Large prostatic adenoma with intravascular median lobe Hypertension Urinary tract infection, resolved unspecified Acute hypoxic respiratory failure, requiring 2 L of oxygen via nasal cannula, likely secondary to surgery Mild leukocytosis, likely reactive Tobacco use disorder History of hypertension History of BPH History of schizophrenia Plan: Postoperative care per urology On CBI, defer management to urology WBCs mildly elevated, 12,000 today. Likely reactive from surgery. Currently patient is afebrile with stable vital signs. Monitor closely UA from 09/24 + UTI. Not on any antibiotics at this time. Will start IV Rocephin empirically Obtain urine culture Currently on 2 L of oxygen via nasal cannula. Wean as tolerated to keep O2 sats greater than 92% Check chest x-ray to rule out pneumonia Pulmonary toileting with nebs/I-S/Flonase Home meds restarted Regular diet Check labs tomorrow a.m. Lovenox for DVT prophylaxis Plan discussed with the patient Thank you for allowing us to participate in the care of this patient. Will continue to follow along with you. at 1429 [facility] #:[phone] END OF REPORT [facility] 2024-09-28 10:54:00 [phone] [address] PATIENT NAME: MATHEW CASTILLO ADMIT DATE: 09/29/24 ACCOUNT NO: [id number] ROOM NO: [address] AGE: 64 REPORT TYPE: OPERATIVE REPORT SEX: M ADMITTING PHYSICIAN:Dave Del Toro MD ATTENDING PHYSICIAN:Dave Del Toro MD OPERATION DATE: 09/28/2024 PREOPERATIVE DIAGNOSIS: Benign prostatic hyperplasia with an approximately 158 g obstructing prostate. POSTOPERATIVE DIAGNOSES: Benign prostatic hyperplasia with an approximately 158 g obstructing prostate with urinary retention. PROCEDURE PERFORMED: Robotic-assisted simple prostatectomy. SURGEON: Dave Del Toro M.D. DIRECTOR MORTGAGE: Crystal Alberts M.D. and Byron Zeng. No qualified resident available. ANESTHESIA: General INDICATIONS: This is a 63-year-old gentleman that has had minimally invasive procedures on his prostate and continues to have significant LUTS with urinary retention. FINDINGS: Large prostatic adenoma with intravascular median lobe. Ureteral orifices were intact at the conclusion of the case and negative for bladder leak after cystography. ESTIMATED BLOOD LOSS: 150 mL. SPECIMENS: Prostate drain 18-N[place]ian 3-way Mercer catheter with CBI. COMPLICATIONS: None. DESCRIPTION OF PROCEDURE: The patient was taken back to the operating room and given general anesthetic as well as antibiotics. He was put in the supine position with all bony prominences padded and bilateral intermittent pneumatic compression devices. The patient was prepped and draped in normal sterile fashion with ChloraPrep. Timeout was completed. A three-way Mercer catheter was placed for filling the bladder. During the case, a Veress needle was used to gain access to the abdominal compartment and the drop test was negative. Abdomen was insufflated to a pressure of 15. I marked out the pubic symphysis and measured 15 cm cranial from this jyoti. The jyoti was the level of robotic arm #1, 2, and 4 trocar sites. The 8 mm trocar site was marked roughly 8 cm lateral to the camera port at that level. The robotic fourth PATIENT NAME: MATHEW CASTILLO arm trocar was marked 8 cm lateral to the robotic trocar on the left side. A 12 mm aerosol fundraising assistant port was placed 2 fingerbreadths from the anterior superior iliac spine. A 5-mm fundraising assistant port was placed cranial to in between the camera port and the robotic further arm. After all ports were placed, the patient was placed in steep Trendelenburg and the Da Oscar XI robot was docked. A vertical 5-cm incision was made by incising the peritoneal over the distended bladder, carried down to the detrusor muscle and bladder mucosa using monopolar cautery. The bladder irrigation and urine were suctioned. The bladder was tacked with Vicryl sutures to keep it open. Bilateral ureteral orifices were identified with clear efflux of urine. A large intravesical prostatic median lobe was present. The robotic tenaculum was used to firmly grasp the median lobe and used to retract the prostate throughout the procedure. Incision was made at the junction of the posterior bladder neck and prostate and extended circumferentially. The prostatic adenoma was dissected away from the bladder and prostatic capsule circumferentially and distally towards the apex using fenestrated bipolar. Once the prostatic apex was reached, the anterior urethra was sharply transected. The Mercer catheter was withdrawn and the posterior urethra was sharply transected. Any remaining attachments to the prostatic capsule were excised to release the prostatic adenoma. Hemostasis was then achieved within the adenoma fossa of the bladder neck. The mucosa was then advanced to the urethra using a 3-0 V-Loc barbed suture x2. Again, there was clear efflux of urine from the bilateral ureteral orifices. A new 18-Nigerian 3-way Mercer catheter was placed. The bladder was closed in two layers with a running 3-0 V-Loc for the mucosa and a running 0 V-Loc for the detrusor. Instillation of 120 mL of saline demonstrated no leak from the cystography. The specimen was placed in an EndoCatch bag with the string delivered through the 5-mm fundraising assistant port. The fascia of the lower left quadrant fundraising assistant port was closed using #0 Vicryl and laparoscopic trocar port site closure system under direct vision was used to close the 12-mm incision. The robot was undocked. Trocars were removed. The specimen was extracted through extending the camera port incision. Multiple 0 Vicryl sutures in a yetcwj-ph-olovo fashion were used to close the fascia. The skin was closed using 4-0 Monocryl. Marcaine was instilled. Dermabond was applied. The patient tolerated the procedure well. There were no complications. All instrument and sponge counts were correct. Dictated By: Dave Del Toro MD Date Dictated: 09/28/2024 10:54:40 Date Transcribed: 09/28/2024 12:55:00 /JOSIAH Receipt ID: [id number] Authenticated and Edited by Dave Del Toro MD On 09/30/24 2:25:13 PM at 0227 PATIENT NAME: MATHEW CASTILLO [facility] 2024-09-24 15:20:00 [id number] [address] PATIENT NAME: MATHEW CASTILLO ADMIT DATE: ACCOUNT NO: [id number] ROOM NO: AGE: 63 REPORT TYPE: eELECTROCARDIOGRAM REPORT SEX: M ADMITTING PHYSICIAN: ATTENDING PHYSICIAN:Dave Del Toro MD Order: [id number] Test Reason : PRE OP Test Date/Time Stamp: FriSep 24 2024 15:20:36 Blood Pressure : */* mmHG Vent. Rate : 77 BPM Atrial Rate : 77 BPM P-R Int : 124 ms QRS Dur : 80 ms QT Int : 380 ms P-R-T Axes : 71 41 30 degrees QTcB Int : 430 ms Normal sinus rhythm with sinus arrhythmia Normal ECG When compared with ECG of 16-Danny-2023 01:07, No significant change was found Confirmed by CLYDE OSEI MD ([id number]) on 09/24/2024 3:54:22 PM Referred By: Self Referred Confirmed by: CLYDE OSEI MD at 1554 PATIENT NAME: MATHEW CASTILLO [facility] 2023-02-14 02:12:00 [facility] ([facility]) Discharge Summary REPORT#:[id number] REPORT STATUS: Signed REPORT INITIALIZATION DATE:02/14/23 TIME: 211 PATIENT: MATHEW CASTILLO UNIT #: [id number] ROOM/BED: [address] : [birth year] AGE: 62 SEX: M [...] BPH-s/p UroLift 01/03/2023, schizophrenia was transferred from [facility] ER with acute kidney injury and urinary retention. Patient reported he presented to the ER with complaint of abdominal pain, he began having urinary retention 1 week after the mercer catheter was removed and progressively worsened. Patient [...] his abdominal pain was better after the Mercer catheter was inserted. Patient was admitted for [...] Genitourinary: circumcised, normal phallus, bilateral descended testes, Mercer catheter in place patent and draining clear [...] (Auto) (14.0 - 32.0 %) 7.1 L Culberson % (Auto) (4.8 - 9.0 %) 8.1 Eos % (Auto) (0.3 - 3.7 %) 0.4 Baso % (Auto) (0.0 - 2.0 %) 0.1 Neut # (Auto) (2.0 - 7.6 x10 3/uL) 9.37 H Lymph # (Auto) (1.0 - 3.8 x10 3/uL) 0.79 L Culberson # (Auto) (0.1 - 0.8 x10 3/uL) [...] 3/uL) 0.[address] ABD PELVIS W/CONT [id number] EXAM: CT abdomen and pelvis with contrast [...] Pelvic organs/bladder: Moderate to marked prostatomegaly. A Mercer catheter also decompresses the bladder. Bowel: No [...] exam, possibly related to forniceal rupture. A Mercer catheter mostly decompresses the bladder. 2. Additional [...] Discharge Instructions Additional Discharge Routines: PCP Follow-Up, Information Resources Director Follow-Up )( Diet: Regular Follow-up Appointments PCP follow up: PCP: Lakhwinder Guillermo MD PCP follow up timeframe: In 5 days Attending Physician: Attending Physician: Salinas Alba MD Attending physician follow up timeframe: In 1-2 weeks Consulting provider 1: Provider 1: Dave Del Toro MD Specialty: Urology Consult follow up timeframe: In 1-2 weeks at 1015 [facility] #:[id number] END OF REPORT [facility] 2023-02-04 04:06:00 [facility] ([facility]) Discharge Summary REPORT#:[id number] REPORT STATUS: Signed REPORT INITIALIZATION DATE:02/04/23 TIME: 405 PATIENT: MATHEW CASTILLO UNIT #: [id number] ROOM/BED: [place] [address] : 59 AGE: 62 SEX: M ATTEND: [...] BPH, s/p bladder lift yesterday by Dr. Del Toro transferred from [place] for urology evaluation secondary to hematuria after bladder irrigation failed. Patient was seen and evaluated by Dr. Christianson, had three way mercer with CBI with straw color output. Last admitted to [facility] on 10/16/22 with urinary retention. Abnormal labs: WBC 16.7, lctic acid-2.9, ua with trace leukocyte estrace and wbc >50 CT abd/pelvis: 1. Prostatomegaly. Decompressed bladder with a Mercer in place. 2. No hydronephrosis. No enhancing renal masses. 3. Cholelithiasis and mildly distended gallbladder. 4. Moderate hiatal hernia. Patient was admitted for further evaluation and treatment. Urology consult was placed. 01/06 Vital signs within normal limits. Hematuria was improved. 01/07 Uro continued to follow the patient. Stopped CBI, cleared for discharge with Mercer. 01/08 Discharge planning: Home when medically cleared. [...] of motion, normal sensory, normal motor function Neuro/TONSORIAL ARTIST: alert, oriented X 3 Skin: dry, intact, [...] % (Auto) (14.0 - 32.0 %) 20.8 Culberson % (Auto) (4.8 - 9.0 %) 7.7 Eos % (Auto) (0.3 - 3.7 %) 8.1 H Baso % (Auto) (0.0 - 2.0 %) 0.7 Neut # (Auto) (2.0 - 7.6 x10 3/uL) 4.51 Lymph # (Auto) (1.0 - 3.8 x10 3/uL) 1.51 Culberson # (Auto) (0.1 - 0.8 x10 3/uL) [...] 3/uL) 0.[address] ABD PELVIS W/CONT 99975 H 20 TIME OF STUDY: 01/04/2023 7:55 [...] CT Pelvis: Bladder is decompressed with a Mercer in place which significantly limits evaluation. The prostate gland is severely enlarged measuring approximately 7.4 x 6.2 cm in maximum dimension. Surgical clips are noted in the prostate. IMPRESSION: 1. Prostatomegaly. Decompressed bladder with a Mercer in place. 2. No hydronephrosis. No enhancing renal masses. 3. Cholelithiasis and mildly distended gallbladder. 4. Moderate hiatal hernia. Discharge Instructions PCP PCP: PCP: Lakhwinder Guillermo MD )( Discharge to: Home/Self Care Discharge Instructions Additional Discharge Routines: PCP Follow-Up, Information Resources Director Follow-Up )( Diet: Cardiac Follow-up Appointments PCP follow up: PCP: Lakhwinder Guillermo MD PCP follow up timeframe: In 5 days Special instructions: CALL TO MAKE APPOINTMENT Consulting provider 1: Provider 1: Dave Del Toro MD Specialty: Urology Special instructions: CALL TO SCHEDULE APPOINTMENT at 0735 [facility] #:[phone] END OF REPORT [facility] 2023-01-27 18:31:00 [phone] [place] [id number] PATIENT NAME: MATHEW CASTILLO ADMIT DATE: 01/06/23 ACCOUNT NO: [id number] ROOM NO: [id number] [id number] AGE: 62 REPORT TYPE: 360 - QUERY RESPONSE DOCUMENT SEX: M ADMITTING PHYSICIAN:Salinas Alba MD ATTENDING PHYSICIAN:Salinas Alba MD Provider Query QUERY TEXT: Condition General 360MD Query related questions should be directed to: [facility] Coding Query Helpline [Based on the below mentioned clinical indicators kindly clarify the condition being treated and evaluated (uti due to mercer catheter, uti not due to mercer catheter,uti due to urolift surgery , or other more appropriate diagnosis)?.] The patient's Clinical Indicators include: 62 yo male with HTN, BPH, chronic indwelling mercer cath, s/p bladder lift yesterday per Dr. Del Toro presents with gross hematuria associated with n/v. : ed physician record 01/04/2023 sepsis/UTI LAB REPORTS ANAEROBIC BOTTLE: GRAM POSITIVE COCCI IN PAIRS AND CHAINS, aerobic bottle pending.: H and P 01/05/2023 Status post UroLift surgery on January 03, [address] Reinaldo Del Toro : Infectious dis progress note 01/08/2023 Options provided: -- Respond - Create new note now -- Dismiss - Not applicable / Not valid -- Dismiss - Clinically unable to determine / Unknown -- Assign to another provider QUERY RESPONSE: uti-mercer Query created by: MADY PEREZ on 01/22/2023 2:50 AM at 1831 PATIENT NAME: MATHEW CASTILLO [facility] 2023-01-27 13:09:00 [phone] [address] PATIENT NAME: MATHEW CASTILLO ADMIT DATE: 01/06/23 ACCOUNT NO: [id number] ROOM NO: G.C146 AGE: 62 REPORT TYPE: 360 - QUERY RESPONSE DOCUMENT SEX: M ADMITTING PHYSICIAN:Salinas Alba MD ATTENDING PHYSICIAN:Salinas Alba MD Provider Query QUERY TEXT: Condition General 360MD Query related questions should be directed to: [facility] Coding Query Helpline [Based on your medical judgement and the clinical indicators listed below kindly specify the underlying cause of the patient's heamaturia(Hematuria due to bladder lift surgery, hematuria due to UTI, hematuria unspecified, or other more appropriate diagnosis)?.] The patient's Clinical Indicators include: 62-year-old male with last medical history of, BPH, s/p bladder lift yesterdayby Dr. Del Toro transferred from [place] for urology evaluation secondary tohematuria after bladder [...] AM at 1309 PATIENT NAME: MATHEW CASTILLO [facility] 2023-01-27 13:09:00 [phone] [place] [address] PATIENT NAME: MATHEW CASTILLO ADMIT DATE: 01/06/23 ACCOUNT NO: [id number] ROOM NO: G.C146 AGE: 62 REPORT TYPE: 360 - QUERY RESPONSE DOCUMENT SEX: M ADMITTING PHYSICIAN:Salinas Alba MD ATTENDING PHYSICIAN:Salinas Alba MD Provider Query QUERY TEXT: Condition General 360MD Query related questions should be directed to: [facility] Coding Query Helpline [Based on your clinical [...] culture, likely could be either contaminant or patient service representative of transient bacteremia: progress note [...] AM at 1309 PATIENT NAME: MATHEW CASTILLO [facility] 2023-01-22 17:40:00 [facility]) Internal Medicine Prog. Note REPORT#:[id number] REPORT STATUS: Signed REPORT INITIALIZATION DATE:01/22/23 TIME: 1739 PATIENT: MATHEW CASTILLO UNIT #: [id number] ROOM/BED: [place] [address] : 59 AGE: 62 SEX: M ATTEND: Salinas Alba MD ADM AUTHOR: Sofia Cheng MECHANICAL SYSTEMS DESIGNER REPT SERVICE DT/TIME: 01/22/231739 * ALL edits or amendments must be made on the electronic/computer document * Objective General VS/I O: Vital Signs Date Temp Pulse Resp B/P B/P Mean Pulse Ox FiO2 01/21-01/22 36.6-37.0 78-88 14-20 109-137/64-82 80.9-100.0 95-98 Last Documented: Result Date Time Pulse Ox 98 01/22 161 B/P 114/64 01/22 1610 B/P Mean 80.9 01/22 1610 Temp 36.9 01/22 1610 Pulse 78 01/22 1610 Resp 16 01/22 1610 O2 Delivery Room air 01/21 0516 24 hour I O ending at 0700: 01/22 0700 01/21 1900 Intake Total Output Total 2099 Balance -2099 Output, Urine 2100 PATIENT WEIGHT: [...] Sodium Chloride (SODIUM CHLORIDE 0.9%) 1,000 ML .[id number] IV Haloperidol (HALDOL) 10 MG BID PO [...] (Auto) (14.0 - 32.0 %) 9.8 L Culberson % (Auto) (4.8 - 9.0 %) 9.0 Eos % (Auto) (0.3 - 3.7 %) 5.7 H Baso % (Auto) (0.0 - 2.0 %) 0.4 Neut # (Auto) (2.0 - 7.6 x10 3/uL) 7.35 Lymph # (Auto) (1.0 - 3.8 x10 3/uL) 0.97 L Culberson # (Auto) (0.1 - 0.8 x10 3/uL) [...] exam, possibly related to forniceal rupture. A Mercer catheter mostly decompresses the bladder. 2. Additional [...] discharged see discharge summery at 2132 RPT #:[id number] END OF REPORT [facility] 2023-01-22 12:19:00 [facility] ([facility]) Nephrology Consultation Note REPORT#:[id number] REPORT STATUS: Signed REPORT INITIALIZATION DATE:01/22/23 TIME: 1219 PATIENT: MATHEW CASTILLO UNIT #: [id number] ROOM/BED: [place] [address] : 59 AGE: 62 SEX: M ATTEND: [...] and CHANDRA 2/2 obstructive uropathy. He had mercer placed in 10/2022 w/ outpatient Urology follow [...] patient given empirc abx [facility] and [facility]. Initial [...] Time Status Admin Sodium Chloride 1,000 ML .[id number] 01/21 2330 AC 01/22 (SODIUM CHLORIDE IV 04/21 232 1359 0.9%) Sodium Chloride 1,000 ML .Q10H 01/21 0645 DC 01/21 (SODIUM CHLORIDE IV 01/22 0533 1651 0.9%) Gastrointestinal Drugs Sig/Mark Start time Last Medication Dose Route Stop Time Status Admin Docusate Sodium 100 MG BID PRN PRN 01/21 2330 AC (COLACE) PO 04/21 232 Ondansetron HCl 4 MG Q4H PRN PRN [...] Sodium Chloride (SODIUM CHLORIDE 0.9%) 1,000 ML .[id number] IV Haloperidol (HALDOL) 10 MG BID PO [...] (Auto) (14.0 - 32.0 %) 9.8 L Culberson % (Auto) (4.8 - 9.0 %) 9.0 Eos % (Auto) (0.3 - 3.7 %) 5.7 H Baso % (Auto) (0.0 - 2.0 %) 0.4 Neut # (Auto) (2.0 - 7.6 x10 3/uL) 7.35 Lymph # (Auto) (1.0 - 3.8 x10 3/uL) 0.97 L Culberson # (Auto) (0.1 - 0.8 x10 3/uL) [...] exam, possibly related to forniceal rupture. A Mercer catheter mostly decompresses the bladder. 2. Additional [...] exam, possibly related to forniceal rupture. A Mercer catheter mostly decompresses the bladder. Additional findings [...] and . at 1923 at 1933 RPT #:[id number] END OF REPORT [facility] 2023-01-21 19:40:00 [facility] ([facility]) Urology Consult Note REPORT#:[id number] REPORT STATUS: Signed REPORT INITIALIZATION DATE:01/21/23 TIME: 1939 PATIENT: MATHEW CASTILLO UNIT #: [id number] ROOM/BED: [place] [address] : [birth year] AGE: 62 SEX: M ATTEND: [...] with urinary retention who follows with Dr. Del Toro and is s/p UroLift 2022. Patient had readmission earlier this month for hematuria after UroLift however this resolved with conservative measures. He was discharged and then had recent voiding trial 01/14/23 in clinic however send have urinary retention at outside hospital and was transferred to [place] with acute renal failure and urinary retention. Outside labs showed creatinine of 5.6, GFR 11. They were able to place a catheter at the outside hospital and his creatinine currently is 2.6 GFR 27. Patient feels overall well he has a [address] that is patent and draining [...] 1628 Pulse 82 01/22 1628 Resp 16 01/22 1628 O2 Delivery Room air 01/22 516 24 hour I O ending at 0700: 01/21 0700 01/20 1900 Intake Total Output Total Balance Patient 70.909 kg Weight Weight Stated/Reported Measurement Method PATIENT WEIGHT: Weight (lb): Weight (oz): Weight (kg): 70.909 Results Findings/Data: Laboratory Tests: 10/17 0518 Chemistry Sodium (134 - 147 mEq/L) [...] (Auto) (14.0 - 32.0 %) 7.1 L Culberson % (Auto) (4.8 - 9.0 %) 8.1 Eos % (Auto) (0.3 - 3.7 %) 0.4 Baso % (Auto) (0.0 - 2.0 %) 0.1 Neut # (Auto) (2.0 - 7.6 x10 3/uL) 9.37 H Lymph # (Auto) (1.0 - 3.8 x10 3/uL) 0.79 L Culberson # (Auto) (0.1 - 0.8 x10 3/uL) [...] Genitourinary: circumcised, normal phallus, bilateral descended testes, Mercer catheter in place patent and draining clear [...] in outside hospital and was transferred to [place]. He has indwelling Mercer placed from the outside hospital that is patent and draining clear urine. Creatinine has down trended to 2.6 from 5.6. -Continue indwelling Mercer do not remove -Trend creatinine -Discussed patient to follow-up with our clinic 01/30/2023 for nurse visit catheter removal and CIC teaching for which he was amenable to trying Crystal Alberts MD -covering for Dr. Del Toro [facility] at 1948 RPT #:[id number] END OF REPORT [facility] 2023-01-21 10:48:00 [facility] ([facility]) History Physical - Adult REPORT#:[id number] REPORT STATUS: Signed REPORT INITIALIZATION DATE:01/21/23 TIME: 1048 PATIENT: MATHEW CASTILLO UNIT #: [id number] ROOM/BED: [place] [address] : 59 AGE: 62 SEX: M ATTEND: Salinas Alba MD ADM AUTHOR: Sofia Cheng NP REPT SERVICE DT/TIME: 01/21/23 1048 * ALL edits or amendments must be made on the electronic/computer document * History of Present Illness HPI Chief complaint: Acute kidney injury Urinary retention HPI: 62-year-old male with last medical history of, BPH-s/p UroLift 01/03/2023, schizophrenia was transferred from [facility] ER with acute kidney injury and urinary retention. Patient reports he presented to the ER with complaint of abdominal pain, he began having urinary retention 1 week after the mercer catheter was removed and progressively worsened. Patient [...] his abdominal pain is better after the Mercer catheter was inserted. Admission vital signs: Blood [...] of motion, normal sensory, normal motor function Neuro/TONSORIAL ARTIST: alert, oriented X 3 Skin: dry, intact, [...] (Auto) (14.0 - 32.0 %) 7.1 L Culberson % (Auto) (4.8 - 9.0 %) 8.1 Eos % (Auto) (0.3 - 3.7 %) 0.4 Baso % (Auto) (0.0 - 2.0 %) 0.1 Neut # (Auto) (2.0 - 7.6 x10 3/uL) 9.37 H Lymph # (Auto) (1.0 - 3.8 x10 3/uL) 0.79 L Culberson # (Auto) (0.1 - 0.8 x10 3/uL) [...] of motion, normal sensory, normal motor function Neuro/TONSORIAL ARTIST: alert, oriented X 3 Skin: dry, intact, no gross abnormalities Psychiatry: Mild anxiety Diagnosis, Assessment Plan Free Text DxA P Notes Free Text DxA P Notes: Assessment: 62-year-old male with last medical history of, BPH-s/p UroLift 01/03/2023, schizophrenia was transferred from [facility] ER with acute kidney injury and urinary retention. Patient reports he presented to the ER with complaint of abdominal pain, he began having urinary retention 1 week after the mercer catheter was removed and progressively worsened. Patient [...] his abdominal pain is better after the Mercer catheter was inserted. Admission vital signs: Blood pressure 157/69, pulse 94, respirations 16, temperature 36.8, O2 sat 97% on room air. 01/21/23 0518: [Embedded Image Not Available] 1. Acute kidney injury 2. Obstructive uropathy 3. Leukocytosis 4. BPH status post UroLift 5. HX OF BPH, Hypertension, Schizophrenia Plan of care: Admit patient for further evaluation and treatment Urology consultation in place Keep Mercer Pain control Prophylactic antibiotics continue with cefepime 1 g every 6 Monitor electrolytes and replace as needed Repeat labs Further recommendation based on patient's clinical course at 0300 at 1108 [facility] #:[phone] END OF REPORT [facility] 2023-01-21 05:27:00 [facility] ([facility]) EMERGENCY PROVIDER REPORT REPORT#:[id number] REPORT STATUS: Signed DATE:01/21/23 TIME: 526 PATIENT: MATHEW CASTILLO UNIT #: [id number] ROOM/BED: [place] [address] AGE: 62 SEX: M PCP PHYS: Lakhwinder Guillermo MD SERVICE AUTHOR: Elizabeth Davenport APRNNP * ALL edits or amendments must be made on the electronic/computer document * Elizabeth Davenport 01/21/23526: HPI-General Illness Free Text HPI Notes Free Text HPI Notes 62-year-old male with PMH as listed below presents to the ER as a transfer from [facility] for diagnoses of ARF, urinary retention. Patient presented to the ER for evaluation of abdominal pain and urine retention that started 1 week ago after having his mercer catheter removed. A 14fr coude catheter was placed. Diagnostic w/u noted WBC of 14, creatinine 5.6, GFR 11, BUN 105. Pt was given cefepime 1 g at 00 37, Merrem 500 mg at 01 56 and 1 L normal saline bolus WINDOWS APPLICATION ADMINISTRATOR upon arrival, patient notes improved but not completely resolved lower abdominal pain. He denies any additional symptoms such as recent fever, chest pain, shortness of breath, N/V/D/C, testicular pain or any other symptoms. General Initial Greet Date/Time 01/21/23 0514 PCP ying, iliana GUILLERMO, PCP, [facility] capped Mc[place] Presentation Chief Complaint [...] 516 Temp 36.8 01/22 516 Pulse 94 01/21 0516 Resp 16 01/21 0516 B/P 157/69 01/21 0523 B/P Mean 98 01/21 523 Last Documented: Result Date Time Pulse Ox 97 01/21 0615 B/P 116/66 01/21 0615 B/P Mean 84 01/21 615 Pulse 90 01/21 615 Resp 15 01/21 0615 O2 Delivery Room air 01/21 05 Temp 36.8 01/21 0516 Review of Vital [...] No palpable masses or pulsatile masses. Negative Stacy Sign. No TTP at [place] : Indwelling Mercer, straw-colored, non-cloudy urine, 600ml Ext: no obvious [...] (Auto) (14.0 - 32.0 %) 7.1 L Culberson % (Auto) (4.8 - 9.0 %) 8.1 Eos % (Auto) (0.3 - 3.7 %) 0.4 Baso % (Auto) (0.0 - 2.0 %) 0.1 Neut # (Auto) (2.0 - 7.6 x10 3/uL) 9.37 H Lymph # (Auto) (1.0 - 3.8 x10 3/uL) 0.79 L Culberson # (Auto) (0.1 - 0.8 x10 3/uL) [...] patient had complaint of urinary retention, requiring Mercer placement. Patient condition warrants admission, IV fluids, urology consultation and possibly nephrology consultation Additional Text [facility] capped Re-Evaluation/Progress #1 Text/Dict Note Patient remains awake, alert, and oriented. Skin color normal, respirations NL. I discussed results and need for admission. Patient verbalized understanding Time of Re-Eval 0620 Consultation Consultation Free Text Consult Notes Consulted with Dr. Del Toro at 637AM 01/21/2023. Text message sent Patient [...] Secondary Impressions: Obstructive uropathy Disposition Decision Hospitalize [facility] Physician Name Salinas Alba MD [facility] Physician Hospitalist Request Time 622 Request Date 01/21/23 )( Accepts Hospitalization Yes )( Reason for Hospitalization CHANDRA )( Accepted Time 623 )( Accepted Date 01/21/23 Call Information will [...] Interpreted by me, Pulse oximetry normal Time 16 Re-Evaluation MDM ED Course Medication(s) Ordered Medication(s) Ordered: Central Nervous System Agents Sig/Mark Start time Last Medication Dose Route Stop Time Status Admin Acetaminophen 650 MG Q4H PRN PRN 01/21 645 DC PO 01/22 533 Electrolytic, Caloric, And Scott Sig/Mark Start time Last Medication Dose Route Stop Time Status Admin Sodium Chloride 1,000 ML .Q10H 01/21 645 DC 01/21 IV 01/22 533 1651 Gastrointestinal Drugs Sig/Mark Start time Last Medication Dose Route Stop Time Status Admin Ondansetron HCl 4 MG Q6H PRN PRN 01/21 645 DC IV 01/22 0533 Patient Discharge Departure Vital Signs/Condition Condition Guarded Supervising Physician Note MidLv/Doc Saw Pt 1 I have personally seen the patient and I evaluated the patient along with involvement of the PA/MECHANICAL SYSTEMS DESIGNER. I agree with the PA/laboratory equipment installer findings and plan. I have performed all aspects of MDM as documented including: evaluation of the patient/ patient's condition(s), review and analysis of available data, and determination of risk of patient management decisions. at 2244 at 1025 RPT #:[id number] END OF REPORT [facility] 2023-01-15 09:31:00 [id number] [place] [address] PATIENT NAME: MATHEW CASTILLO ADMIT DATE: 01/06/23 ACCOUNT NO: [id number] ROOM NO: G.C146 AGE: 62 REPORT TYPE: 360 - QUERY RESPONSE DOCUMENT SEX: M ADMITTING PHYSICIAN:Salinas Alba MD ATTENDING PHYSICIAN:Salinas Alba MD Provider Query QUERY TEXT: Clarification Rule In Rule Out 360MD Query related questions should be directed to: [facility] Coding Query Help-line Based on your clinical [...] AM at 0931 PATIENT NAME: MATHEW CASTILLO [facility] 2023-01-11 17:08:00 [id number] [place] [address] PATIENT NAME: MATHEW CASTILLO ADMIT DATE: 01/06/23 ACCOUNT NO: [id number] ROOM NO: G.C146 AGE: 62 REPORT TYPE: PROGRESS NOTE SEX: M ADMITTING PHYSICIAN:Salinas Alba MD ATTENDING PHYSICIAN:Salinas Alba MD DATE: 01/10/2023 SUBJECTIVE: The patient examined, chart reviewed, events of last 24 hours noted. The patient clinically is doing fairly well, resting in bed. Denies any new complaints. Remains afebrile. Still complains of some dysuria even though he has indwelling Mercer catheter in place. No further hematuria noted. [...] are normoactive. EXTREMITIES: The patient has 3-way Mercer catheter in place and has very faint [...] Room to [facility] facility in [place], and from there, he was transferred to [facility]. The patient PATIENT NAME: MATHEW CASTILLO was evaluated by Urology Service. He was placed on broad-spectrum IV antibiotics. His urine culture has shown growth of Pseudomonas aeruginosa and 1 out of 2 blood culture has shown growth of Enterococcus faecalis. The Enterococcus faecalis growing in 1 blood culture, likely could be either contaminant or patient service representative of transient bacteremia. Clinically is doing [...] Date Transcribed: 01/11/2023 18:52:55 ESTRADA/JORGE Receipt ID: [id number] Authenticated and Edited by Skip Jaffe MD On 01/22/23 5:19:12 AM at 0520 PATIENT NAME: MATHEW CASTILLO [facility] 2023-01-10 21:43:00 [facility] ([facility]) Internal Medicine Prog. Note REPORT#:[id number] REPORT STATUS: Signed REPORT INITIALIZATION DATE:01/10/23 TIME: 2142 PATIENT: MATHEW CASTILLO UNIT #: [id number] ROOM/BED: [place] [address] : 58 AGE: 62 SEX: M ATTEND: Salinas Alba MD ADM AUTHOR: Sofia Cheng MECHANICAL SYSTEMS DESIGNER REPT SERVICE DT/TIME: 01/10/232142 * ALL edits or amendments must be made on the electronic/computer document * Subjective Chief complaint: Hematuria HPI: 62-year-old male with last medical history of, BPH, s/p bladder lift yesterday by Dr. Del Toro transferred from [place] for urology evaluation secondary to hematuria after bladder irrigation failed. pt was seen and evaluated by Dr. Christianson, has three way mercer with CBI with straw color output. Last admitted to [facility] on 10/16/22 with urinary retention. Abnormal labs: WBC 16.7, lctic acid-2.9, ua with trace leukocyte estrace and wbc >50 CT abd/pelvis 1. Prostatomegaly. Decompressed bladder with a Mercer in place. 2. No hydronephrosis. No enhancing [...] Time Pulse Ox 96 01/11 1920 B/P 107/01/10 B/P Mean 79.7 01/11 1920 O2 Delivery Room air 01/11 1920 Temp 37.0 01/11 1920 Pulse 80 01/11 1920 Resp 14 01/11 1920 24 hour I O ending at 0700: 01/10 0700 01/09 190 Intake Total Output Total 950 Balance -950 [...] Sodium Chloride (SODIUM CHLORIDE 0.9%) 1,000 ML .[id number] IV (DC) Sodium Chloride (SODIUM CHLORIDE 0.9%) [...] of motion, normal sensory, normal motor function Neuro/TONSORIAL ARTIST: 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 Del Toro transferred from [place] for urology evaluation secondary to hematuria after bladder irrigation failed. pt was seen and evaluated by Dr. Christianson, has three way mercer with CBI with straw color output. Last admitted to [facility] on 10/16/22 with urinary retention. Abnormal labs: WBC 16.7, lctic acid-2.9, ua with trace leukocyte estrace and wbc >50 CT abd/pelvis: 1. Prostatomegaly. Decompressed bladder with a Mercer in place. 2. No hydronephrosis. No enhancing [...] and treatment Urology consultation in place Keep Mercer with CBI Ceftriaxone 2 g daily ID [...] patient. Stop CBI, cleared for discharge with Mercer Discontinue telemetry monitoring Mercer care Fall precaution, follow-up labs, continue medications and present care 01/08/2023 Vital signs are stable Uro cleared the patient for discharge tomorrow with Mercer catheter Continue IV antibiotic Zosyn per ID Discharge planning: Home when medically cleared Follow-up labs, cultures, continue medications and present care 01/09/2023 Patient remained stable Hematuria is resolved For follow-up with uro as outpatient, cleared for discharge with Mercer. Consultants evaluations noted Still on IV antibiotic Zosyn, tamsulosin p.o. Fall precaution, pain medications as needed Continue medications and present care January 10, 2023: Hematuria had resolved Mercer to bedside drainage Seen and evaluated by urology Continues IV antibiotics Continue tamsulosin Fall precaution Continue with current medications Plan is to discharge patient home in a.m. and follow-up with urology outpatient at 0024 at 0814 RPT #:[id number] END OF REPORT [facility] 2023-01-10 20:39:00 [facility] ([facility]) Infectious Dis. Progress Note REPORT#:[id number] REPORT STATUS: Signed REPORT INITIALIZATION DATE:01/10/23 TIME: 2038 PATIENT: MATHEW CASTILLO UNIT #: [id number] ROOM/BED: [address] : 59 AGE: 62 SEX: M [...] on January 03, [address] Reinaldo Del Toro. Recurrent fever and leukocytosis improved. Rule out [...] him home on oral ciprofloxacin. at 0244 [facility] #:[id number] END OF REPORT [facility] 2023-01-10 08:39:00 [id number] [address] PATIENT NAME: MATHEW CASTILLO ADMIT DATE: 01/06/23 ACCOUNT NO: [id number] ROOM NO: G.C146 AGE: 62 REPORT TYPE: [...] of dysuria even though he has a Mercer catheter in place. CURRENT MEDICATIONS: Include benztropine, [...] are normoactive. EXTREMITIES: The patient has 3-way Mercer catheter in place and has very faint [...] MATHEW CASTILLO acute urinary retention requiring indwelling Mercer catheter placement, he had undergone UroLift surgery by Dr. Del Toro and subsequently was discharged; however, he was readmitted with ladan hematuria and he was started on bladder irrigation with 3-way Mercer catheter and his urine culture had shown [...] Date Transcribed: 01/10/2023 09:42:11 ESTRADA/KYLE Receipt ID: [id number] Authenticated and Edited by Sikp Jaffe MD On 01/22/23 5:19:04 AM at 0520 PATIENT NAME: MATHEW CASTILLO [facility] 2023-01-09 22:29:00 [facility]) Internal Medicine Prog. Note REPORT#:[id number] REPORT STATUS: Signed REPORT INITIALIZATION DATE:01/09/23 TIME: 2228 PATIENT: MATHEW CASTILLO UNIT #: [id number] [address]OM[address]BED: [address] : 59 AGE: 62 SEX: M ATTEND: Salinas Alba MD ADM AUTHOR: Sofia Cheng NP REPT SERVICE DT/TIME: 01/09/232228 * ALL edits or amendments must be made on the electronic/computer document * Subjective Chief complaint: Hematuria HPI: 62-year-old male with last medical history of, BPH, s/p bladder lift yesterday by Dr. Del Toro transferred from [place] for urology evaluation secondary to hematuria after bladder irrigation failed. pt was seen and evaluated by Dr. Christianson, has three way mercer with CBI with straw color output. Last admitted to [facility] on 10/16/22 with urinary retention. Abnormal labs: WBC 16.7, lctic acid-2.9, ua with trace leukocyte estrace and wbc >50 CT abd/pelvis 1. Prostatomegaly. Decompressed bladder with a Mercer in place. 2. No hydronephrosis. No enhancing [...] Sodium Chloride (SODIUM CHLORIDE 0.9%) 1,000 ML .[id number] IV Sodium Chloride (SODIUM CHLORIDE 0.9%) 1,000 [...] % (Auto) (14.0 - 32.0 %) 20.8 Culberson % (Auto) (4.8 - 9.0 %) 7.7 Eos % (Auto) (0.3 - 3.7 %) 8.1 H Baso % (Auto) (0.0 - 2.0 %) 0.7 Neut # (Auto) (2.0 - 7.6 x10 3/uL) 4.51 Lymph # (Auto) (1.0 - 3.8 x10 3/uL) 1.51 Culberson # (Auto) (0.1 - 0.8 x10 3/uL) [...] of motion, normal sensory, normal motor function Neuro/TONSORIAL ARTIST: 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 Del Toro transferred from [place] for urology evaluation secondary to hematuria after bladder irrigation failed. pt was seen and evaluated by Dr. Christianson, has three way mercer with CBI with straw color output. Last admitted to [facility] on 10/16/22 with urinary retention. Abnormal labs: WBC 16.7, lctic acid-2.9, ua with trace leukocyte estrace and wbc >50 CT abd/pelvis: 1. Prostatomegaly. Decompressed bladder with a Mercer in place. 2. No hydronephrosis. No enhancing [...] and treatment Urology consultation in place Keep Mercer with CBI Ceftriaxone 2 g daily ID [...] patient. Stop CBI, cleared for discharge with Mercer Discontinue telemetry monitoring Mercer care Fall precaution, follow-up labs, continue medications and present care 01/08/2023 Vital signs are stable Uro cleared the patient for discharge tomorrow with Mercer catheter Continue IV antibiotic Zosyn per ID Discharge planning: Home when medically cleared Follow-up labs, cultures, continue medications and present care 01/09/2023 Patient remained stable Hematuria is resolved For follow-up with uro as outpatient, cleared for discharge with Mercer. Consultants evaluations noted Still on IV antibiotic Zosyn, tamsulosin p.o. Fall precaution, pain medications as needed Continue medications and present care at 2359 at 1240 RPT #:[id number] END OF REPORT [facility] 2023-01-09 19:20:00 [facility] ([facility]) Infectious Dis. Progress Note REPORT#:[id number] REPORT STATUS: Signed REPORT INITIALIZATION DATE:01/09/23 TIME: 1919 PATIENT: MATHEW CASTILLO UNIT #: [id number] ROOM[address]BED: [address] : 59 AGE: 62 SEX: M [...] same. Resting comfortably in bed. Has indwelling Mercer catheter in place. Hematuria has significantly improved however still has some small specks of the clotted blood in the Mercer catheter. Fever of up to 100.8 degree F. Status post UroLift surgery on January 03, [address] Reinaldo Del Toro. Recurrent fever and leukocytosis improved. Rule out [...] home on oral ciprofloxacin. at 0432 RPT #:[id number] END OF REPORT [facility] 2023-01-09 18:36:00 [phone] [place] [address] PATIENT NAME: MATHEW CASTILLO ADMIT DATE: 01/06/23 ACCOUNT NO: [id number] ROOM NO: [facility] AGE: 62 [...] are normoactive. EXTREMITIES: The patient has 3-way Mercer catheter in place and has very faint [...] to have hematuria and was PATIENT NAME: MAHTEW CASTILLO admitted to [place], and from there, he was transferred to [facility] for urology followup. The patient was on [...] Dictated: 01/09/2023 18:36:08 Date Transcribed: 01/09/2023 20:19:12 [place] Receipt ID: [id number] Authenticated and Edited by Skip Jaffe MD On 01/22/23 5:18:55 AM at 0520 PATIENT NAME: MATHEW CASTILLO [facility] 2023-01-09 11:30:00 [facility] ([facility]) Urology Progress Note REPORT#:[id number] REPORT STATUS: Signed REPORT INITIALIZATION DATE:01/09/23 TIME: 113 PATIENT: MATHEW CASTILLO UNIT #: [id number] [address]: [address] : 59 AGE: 62 SEX: M ATTEND: Salinas Alba MD ADM AUTHOR: Dave Del Toro MD REPT SERVICE DT/TIME: 01/09/23 1130 * [...] urolift - hematuria resolved - discharge with mercer and f/u as planned in clinic at 1131 RPT #:[id number] END OF REPORT [facility] 2023-01-08 21:19:00 [facility]) Internal Medicine Prog. Note REPORT#:[id number] REPORT STATUS: Signed REPORT INITIALIZATION DATE:01/08/23 TIME: 2118 PATIENT: MATHEW CASTILLO UNIT #: [id number] ROOM/BED: [place] [address] : 59 AGE: 62 SEX: M ATTEND: Salinas Alba MD ADM AUTHOR: Sofia Cheng MECHANICAL SYSTEMS DESIGNER REPT SERVICE DT/TIME: 01/08/232118 * ALL edits or amendments must be made on the electronic/computer document * Subjective Chief complaint: Hematuria HPI: 62-year-old male with last medical history of, BPH, s/p bladder lift yesterday by Dr. Del Toro transferred from [place] for urology evaluation secondary to hematuria after bladder irrigation failed. pt was seen and evaluated by Dr. Christianson, has three way mercer with CBI with straw color output. Last admitted to [facility] on 10/16/22 with urinary retention. Abnormal labs: WBC 16.7, lctic acid-2.9, ua with trace leukocyte estrace and wbc >50 CT abd/pelvis 1. Prostatomegaly. Decompressed bladder with a Mercer in place. 2. No hydronephrosis. No enhancing [...] Sodium Chloride (SODIUM CHLORIDE 0.9%) 1,000 ML .[id number] IV Sodium Chloride (SODIUM CHLORIDE 0.9%) 1,000 [...] % (Auto) (14.0 - 32.0 %) 22.3 Culberson % (Auto) (4.8 - 9.0 %) 6.9 Eos % (Auto) (0.3 - 3.7 %) 9.9 H Baso % (Auto) (0.0 - 2.0 %) 0.9 Neut # (Auto) (2.0 - 7.6 x10 3/uL) 3.89 Lymph # (Auto) (1.0 - 3.8 x10 3/uL) 1.46 Culberson # (Auto) (0.1 - 0.8 x10 3/uL) [...] of motion, normal sensory, normal motor function Neuro/TONSORIAL ARTIST: 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 Del Toro transferred from [place] for urology evaluation secondary to hematuria after bladder irrigation failed. pt was seen and evaluated by Dr. Christianson, has three way mercer with CBI with straw color output. Last admitted to [facility] on 10/16/22 with urinary retention. Abnormal labs: WBC 16.7, lctic acid-2.9, ua with trace leukocyte estrace and wbc >50 CT abd/pelvis: 1. Prostatomegaly. Decompressed bladder with a Mercer in place. 2. No hydronephrosis. No enhancing [...] and treatment Urology consultation in place Keep Mercer with CBI Ceftriaxone 2 g daily ID [...] patient. Stop CBI, cleared for discharge with Mercer Discontinue telemetry monitoring Mercer care Fall precaution, follow-up labs, continue medications and present care 01/08/2023 Vital signs are stable Uro cleared the patient for discharge tomorrow with Mercer catheter Continue IV antibiotic Zosyn per ID Discharge planning: Home when medically cleared Follow-up labs, cultures, continue medications and present care at 5078 at 1246 RPT #:[id number] END OF REPORT [facility] 2023-01-08 18:59:00 [facility] ([facility]) Infectious Dis. Progress Note REPORT#:[id number] REPORT STATUS: Signed REPORT INITIALIZATION DATE:01/08/23 TIME: 1858 PATIENT: MATHEW CASTILLO UNIT #: [id number] ROOM/BED: [facility] : 59 AGE: 62 SEX: M ATTEND: [...] on January 03, [address] Reinaldo Del Toro. Recurrent fever and leukocytosis improved. Rule out [...] him home on oral ciprofloxacin. at 0321 [facility] #:[id number] END OF REPORT [facility] 2023-01-08 18:22:00 [phone] [place] [address] PATIENT NAME: MATHEW CASTILLO ADMIT DATE: 01/06/23 ACCOUNT NO: [id number] ROOM NO: G.C146 AGE: 62 REPORT TYPE: PROGRESS NOTE SEX: M ADMITTING PHYSICIAN:Salinas Alba MD ATTENDING PHYSICIAN:Salinas Alba MD DATE: 01/07/2023 SUBJECTIVE: The patient examined. Chart reviewed. Events of last 24 hours noted. The patient clinically is not much changed. He remains awake and alert, resting comfortably in bed. Denies any new complaints. Continues to have Mercer catheter in place with irrigation and his [...] are normoactive. EXTREMITIES: The patient has 3-way Mercer catheter in place and has very faint [...] Dictated: 01/08/2023 18:22:31 Date Transcribed: 01/08/2023 19:55:35 [place] [place] Receipt ID: [id number] Authenticated and Edited by Skip Jaffe MD On 01/22/23 5:18:46 AM at 0520 PATIENT NAME: YUKI CASTILLORELL SINCERE [facility] 2023-01-08 17:58:00 [facility] ([facility]) Urology Progress Note REPORT#:[id number] REPORT STATUS: Signed REPORT INITIALIZATION DATE:01/08/23 TIME: 1758 PATIENT: MATHEW CASTILLO UNIT #: [id number] [address]: [address] : 59 AGE: 62 SEX: M ATTEND: Salinas Alba MD ADM AUTHOR: Dave Del Toro MD REPT SERVICE DT/TIME: 01/08/231757 * ALL [...] % (Auto) (14.0 - 32.0 %) 22.3 Culberson % (Auto) (4.8 - 9.0 %) 6.9 Eos % (Auto) (0.3 - 3.7 %) 9.9 H Baso % (Auto) (0.0 - 2.0 %) 0.9 Neut # (Auto) (2.0 - 7.6 x10 3/uL) 3.89 Lymph # (Auto) (1.0 - 3.8 x10 3/uL) 1.46 Culberson # (Auto) (0.1 - 0.8 x10 3/uL) [...] - hematuria is improved - discharge with mercer tomorrow at 3777 RPT #:[id number] END OF REPORT [facility] 2023-01-08 02:42:00 [facility] ([facility]) Infectious Dis. Progress Note REPORT#:[id number] REPORT STATUS: Signed REPORT INITIALIZATION DATE:01/08/23 TIME: 241 PATIENT: MATHEW CASTILLO UNIT #: [id number] ROOM/BED: [place] [address] : 59 AGE: 62 SEX: M ATTEND: [...] on January 03, [address] Reinaldo Del Toro. Recurrent fever and leukocytosis improved. Rule out [...] patient on IV Zosyn. at 0353 RPT #:[id number] END OF REPORT [facility] 2023-01-07 21:05:00 [facility]) Internal Medicine Prog. Note REPORT#:[id number] REPORT STATUS: Signed REPORT INITIALIZATION DATE:01/07/23 TIME: 2104 PATIENT: MATHEW CASTILLO UNIT #: [id number] ROOM/BED: [place] [address] : 58 AGE: 62 SEX: M ATTEND: Salinas Alba MD ADM AUTHOR: Sofia Cheng NP REPT SERVICE DT/TIME: 01/07/23 1969 * ALL edits or amendments must be made on the electronic/computer document * Subjective Chief complaint: Hematuria HPI: 62-year-old male with last medical history of, BPH, s/p bladder lift yesterday by Dr. Del Toro transferred from [place] for urology evaluation secondary to hematuria after bladder irrigation failed. pt was seen and evaluated by Dr. Christianson, has three way mercer with CBI with straw color output. Last admitted to [facility] on 10/16/22 with urinary retention. Abnormal labs: WBC 16.7, lctic acid-2.9, ua with trace leukocyte estrace and wbc >50 CT abd/pelvis 1. Prostatomegaly. Decompressed bladder with a Mercer in place. 2. No hydronephrosis. No enhancing [...] Sodium Chloride (SODIUM CHLORIDE 0.9%) 1,000 ML .[id number] IV Sodium Chloride (SODIUM CHLORIDE 0.9%) 1,000 [...] % (Auto) (14.0 - 32.0 %) 21.2 Culberson % (Auto) (4.8 - 9.0 %) 7.2 Eos % (Auto) (0.3 - 3.7 %) 10.4 H Baso % (Auto) (0.0 - 2.0 %) 0.8 Neut # (Auto) (2.0 - 7.6 x10 3/uL) 3.56 Lymph # (Auto) (1.0 - 3.8 x10 3/uL) 1.26 Culberson # (Auto) (0.1 - 0.8 x10 3/uL) [...] of motion, normal sensory, normal motor function Neuro/TONSORIAL ARTIST: 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 Del Toro transferred from [place] for urology evaluation secondary to hematuria after bladder irrigation failed. pt was seen and evaluated by Dr. Christianson, has three way mercer with CBI with straw color output. Last admitted to [facility] on 10/16/22 with urinary retention. Abnormal labs: WBC 16.7, lctic acid-2.9, ua with trace leukocyte estrace and wbc >50 CT abd/pelvis: 1. Prostatomegaly. Decompressed bladder with a Mercer in place. 2. No hydronephrosis. No enhancing [...] and treatment Urology consultation in place Keep Mercer with CBI Ceftriaxone 2 g daily ID [...] patient. Stop CBI, cleared for discharge with Mercer Discontinue telemetry monitoring Mercer care Fall precaution, follow-up labs, continue medications and present care at 2222 at 0742 RPT #:[id number] END OF REPORT [facility] 2023-01-07 16:17:00 [facility] ([facility]) Urology Progress Note REPORT#:[id number] REPORT STATUS: Signed REPORT INITIALIZATION DATE:01/07/23 TIME: 1616 PATIENT: MATHEW CASTILLO UNIT #: [id number] ROOM/BED: [place] [address] : 58 AGE: 62 SEX: M ATTEND: Salinas Alba MD ADM AUTHOR: Dave Del Toro MD REPT SERVICE DT/TIME: 01/07/231616 * ALL edits or amendments must be made on the electronic/computer document * Subjective HPI: Mathew Castillo is a 62 yo M history of hypertension, schizophrenia, BPH urinary retention who follows with Dr. Del Toro and is status post UroLift 2022. Patient [...] improved - stop cbi - discharge with mercer tomorrow at 1617 [facility] #:[id number] END OF REPORT [facility] 2023-01-07 05:20:00 [phone] [place] [address] PATIENT NAME: MATHEW CASTILLO ADMIT DATE: 01/06/23 ACCOUNT NO: [id number] ROOM NO: G.C146 AGE: 62 REPORT TYPE: [...] The patient continues to have a 3-way Mercer catheter in place. No further hematuria noted [...] are normoactive. EXTREMITIES: The patient has 3-way Mercer catheter in place and has very faint [...] Date Transcribed: 01/07/2023 05:56:47 DORADO/PAP Receipt ID: [id number] Authenticated and Edited by Skip Jaffe MD On 01/22/23 5:18:20 AM at 0520 PATIENT NAME: MATHEW CASTILLO [facility] 2023-01-06 21:39:00 [facility] ([facility]) Internal Medicine Prog. Note REPORT#:[id number] REPORT STATUS: Signed REPORT INITIALIZATION DATE:01/06/23 TIME: 2138 PATIENT: MATHEW CASTILLO UNIT #: [id number] ROOM/BED: [place] [address] : 59 AGE: 62 SEX: M ATTEND: Salinas Alba MD ADM AUTHOR: Sofia Cheng MECHANICAL SYSTEMS DESIGNER REPT SERVICE DT/TIME: 01/06/232138 * ALL edits or amendments must be made on the electronic/computer document * Subjective Chief complaint: Hematuria HPI: 62-year-old male with last medical history of, BPH, s/p bladder lift yesterday by Dr. Del Toro transferred from [place] for urology evaluation secondary to hematuria after bladder irrigation failed. pt was seen and evaluated by Dr. Christianson, has three way mercer with CBI with straw color output. Last admitted to [facility] on 10/16/22 with urinary retention. Abnormal labs: WBC 16.7, lctic acid-2.9, ua with trace leukocyte estrace and wbc >50 CT abd/pelvis 1. Prostatomegaly. Decompressed bladder with a Mercer in place. 2. No hydronephrosis. No enhancing [...] Sodium Chloride (SODIUM CHLORIDE 0.9%) 1,000 ML .[id number] IV Sodium Chloride (SODIUM CHLORIDE 0.9%) 1,000 [...] (Auto) (14.0 - 32.0 %) 11.8 L Culberson % (Auto) (4.8 - 9.0 %) 7.5 Eos % (Auto) (0.3 - 3.7 %) 3.2 Baso % (Auto) (0.0 - 2.0 %) 0.4 Neut # (Auto) (2.0 - 7.6 x10 3/uL) 7.43 Lymph # (Auto) (1.0 - 3.8 x10 3/uL) 1.14 Culberson # (Auto) (0.1 - 0.8 x10 3/uL) [...] of motion, normal sensory, normal motor function Neuro/TONSORIAL ARTIST: 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 Del Toro transferred from [place] for urology evaluation secondary to hematuria after bladder irrigation failed. pt was seen and evaluated by Dr. Christianson, has three way mercer with CBI with straw color output. Last admitted to [facility] on 10/16/22 with urinary retention. Abnormal labs: WBC 16.7, lctic acid-2.9, ua with trace leukocyte estrace and wbc >50 CT abd/pelvis: 1. Prostatomegaly. Decompressed bladder with a Mercer in place. 2. No hydronephrosis. No enhancing [...] and treatment Urology consultation in place Keep Mercer with CBI Ceftriaxone 2 g daily ID [...] medications and supportive care at 0015 at 0777 RPT #:[id number] END OF REPORT [facility] 2023-01-06 19:39:00 [facility] Urology Progress Note REPORT#:[id number] REPORT STATUS: Signed REPORT INITIALIZATION DATE:01/06/23 TIME: 1938 PATIENT: MATHEW CASTILLO UNIT #: [id number] ROOM/BED: [address]: 59 AGE: 62 SEX: M ATTEND: Salinas Alba MD ADM AUTHOR: Dave Del Toro MD REPT SERVICE DT/TIME: 01/06/231938 * ALL edits or amendments must be made on the electronic/computer document * Subjective HPI: Mathew Castillo is a 62 yo M history of hypertension, schizophrenia, BPH urinary retention who follows with Dr. Del Toro and is status post UroLift 2022. Patient [...] I O ending at 0700: 01/06 0700 10 1900 Intake Total 400.00 Output Total 1000 [...] (Auto) (14.0 - 32.0 %) 11.8 L Culberson % (Auto) (4.8 - 9.0 %) 7.5 Eos % (Auto) (0.3 - 3.7 %) 3.2 Baso % (Auto) (0.0 - 2.0 %) 0.4 Neut # (Auto) (2.0 - 7.6 x10 3/uL) 7.43 Lymph # (Auto) (1.0 - 3.8 x10 3/uL) 1.14 Culberson # (Auto) (0.1 - 0.8 x10 3/uL) [...] wean cbi as tolerated at 1941 RPT #:[id number] END OF REPORT [facility] 2023-01-06 19:19:00 [facility] ([facility]) Infectious Dis. Progress Note REPORT#:[id number] REPORT STATUS: Signed REPORT INITIALIZATION DATE:01/06/23 TIME: 1918 PATIENT: MATHEW CASTILLO UNIT #: [id number] ROOM/BED: [facility]-1 : 59 AGE: 62 SEX: M ATTEND: [...] on January 03, [address] Reinaldo Del Toro. Recurrent fever and leukocytosis most secondary to [...] possibility[place] [id number] colony-forming units of the Gram- negative rods. Identification and susceptibility is pending. Keep the patient on IV Zosyn. at 0411 RPT #:[id number] END OF REPORT [facility] 2023-01-06 17:40:00 [id number] [facility] [address] [address] PATIENT NAME: MATHEW CASTILLO ADMIT DATE: 01/06/23 ACCOUNT NO: [id number] ROOM NO: [facility] AGE: 62 REPORT TYPE: CONSULTATION REPORT SEX: M ADMITTING PHYSICIAN:Salinas Alba MD ATTENDING PHYSICIAN:Salinas Alba MD CONSULTATION DATE: 01/05/2023 INFECTIOUS DISEASE CONSULTATION The patient examined, chart reviewed, old records reviewed. Thank you, Dr. Michael, for asking me to evaluate Mr. Mathew Castillo. HISTORY OF PRESENT ILLNESS: Mr. Castillo is known to me from his recent hospitalization at [facility] in 10/2022. He is a 62-year-old male with a past medical history of schizophrenia, benign prostatic hypertrophy with recurrent urinary symptomatology, history of previous episode of urinary retention due to bladder neck obstruction requiring indwelling Mercer catheter placement and hospitalization in October of 2022. The patient lives in [place] and he had an outpatient prostate procedure done by Dr. Dave Del Toro with UroLift on Friday01/03/2023 and was discharged home on the same day. The patient went back to [place]. However, subsequently, he started to notice ladan hematuria on Friday and had no other constitutional symptoms including fever or chills. The patient because of worsening hematuria decided to go to the hospital. He went to hospital in [place] and he was told to follow up with the urologist and he was transferred to the [facility]. The patient at present is hemodynamically stable [...] significant dysuria. He does have a 3-way Mercer catheter in place, but states that whenever [...] bladder neck obstruction. The patient had indwelling Mercer catheter placed, which he was discharged with. PATIENT NAME: MATHEW CASTILLO PAST SURGICAL HISTORY: The patient previously had no surgical history. However, he has undergone UroLift procedure on 01/03/[address] Dave Del Toro as an outpatient. VACCINATION HISTORY: The patient has received 2 doses of COVID-19 vaccination. No further booster doses were given. ALLERGIES: THE PATIENT HAS NO KNOWN DRUG ALLERGIES. SOCIAL AND PERSONAL HISTORY: The patient is single. He lives with his daughter in [place]. The patient has been a longtime smoker and continues to smoke. No history of IV drug use, alcohol use, or substance abuse. 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 EXTREMITIES: The patient has 3-way Mercer catheter in place and has very faint [...] on admission shows prostatomegaly, decompressed bladder with Mercer in place. No hydronephrosis, no enhancing renal masses, cholelithiasis and a mildly distended gallbladder, moderate hiatal PATIENT NAME: MATHEW CASTILLO hernia. On admission, [place] [address]. The patient had 2 blood cultures done. Urine culture is incubating. ASSESSMENT: The patient with multiple comorbidities including history of benign prostatic hypertrophy with previous episode of urinary retention requiring indwelling Mercer catheter placement has undergone an UroLift procedure on 01/03/2023, and subsequently was discharged on the same day; however, yesterday he started to have hematuria and was seen at a hospital in [facility] and is transferred to [facility] for further Urology evaluation. 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, and he is empirically started on [...] since he is fragile and has indwelling Mercer catheter in place, it will be appropriate [...] Dictated: 01/06/2023 17:40:46 Date Transcribed: 01/06/2023 21:28:36 /GLORIA Receipt ID: [id number] Authenticated by Skip Jaffe MD On 01/22/2023 05:17:37 AM at 0517 PATIENT NAME: MATHEW CASTILLO [facility] 2023-01-05 23:00:00 [facility] ([facility]) Infect Disease Consult Note REPORT#:[id number] REPORT STATUS: Signed REPORT INITIALIZATION DATE:01/05/23 TIME: 2299 PATIENT: MATHEW CASTILLO UNIT #: [id number] ROOM/BED: [place] [address] : 59 AGE: 62 SEX: M ATTEND: [...] our service from his recent hospitalization at [facility] in October of 2022. ASSESSMENT AND PLAN: Fever of up to 100.8 degree F. Status post UroLift surgery on January 03, [address] Reinaldo Del Toro. Recurrent fever and leukocytosis most secondary to noninfectious/ noninfectious causes. Rule out urinary tract infection. Urinalysis however, shows no bacteriuria. Rule out DVT and low-grade PE. Doubt any new nosocomial acquired infection. Continue empiric IV antibiotics for now. Follow-up blood and urine culture result. History - Adult longitudinal Allergies: Coded Allergies: No Known Allergies (10/16/22) at 0526 RPT #:[id number] END OF REPORT [facility] 2023-01-05 13:05:00 [facility] ([facility]) Urology Consult Note REPORT#:[id number] REPORT STATUS: Signed REPORT INITIALIZATION DATE:01/05/23 TIME: 1305 PATIENT: MATHEW CASTILLO UNIT #: [id number] ROOM/BED: [place] [address] : 59 AGE: 62 SEX: M ATTEND: [...] BPH urinary retention who follows with Dr. Del Toro and is status post UroLift 2022. Patient [...] (Auto) (14.0 - 32.0 %) 4.5 L Culberson % (Auto) (4.8 - 9.0 %) 6.1 Eos % (Auto) (0.3 - 3.7 %) 0.3 Baso % (Auto) (0.0 - 2.0 %) 0.2 Neut # (Auto) (2.0 - 7.6 x10 3/uL) 15.99 H Lymph # (Auto) (1.0 - 3.8 x10 3/uL) 0.82 L Culberson # (Auto) (0.1 - 0.8 x10 3/uL) [...] 0.1 x10 3/uL) 0.00 01/04 01/04 01/04 8746 7958 2000 Chemistry Sodium (134 - 147 mEq/L) [...] (Auto) (14.0 - 32.0 %) 5.4 L Culberson % (Auto) (4.8 - 9.0 %) 5.3 Eos % (Auto) (0.3 - 3.7 %) 0.0 L Baso % (Auto) (0.0 - 2.0 %) 0.2 Neut # (Auto) (2.0 - 7.6 x10 3/uL) 14.77 H Lymph # (Auto) (1.0 - 3.8 x10 3/uL) 0.90 L Culberson # (Auto) (0.1 - 0.8 x10 3/uL) [...] pH (5.0 - 7.0) 7.0 Ur Specific [place] (1.005 - 1.030) 1.005 Urine Protein (NEGATIVE) [...] normal phallus, bilateral descended testes, three- way Mercer in place draining clear urine mixed with old bloody urine Musculoskeletal: no clubbing, cyanosis or edema Skin: no rashes Neurologic: no focal deficits Psychiatric: appropriate mood and affect Hematologic: no bruising Procedure: The existing three-way Mercer was started on continuous bladder irrigation. The [...] had 1 dose of ceftriaxone. - Continue Mercer catheter - Continue CBI, titrate to clear - Ok to resume regular diet at this time. NPOpMN Crystal Alberts MD [facility] at 1312 RPT #:[id number] END OF REPORT [facility] 2023-01-05 11:34:00 [facility] ([facility]) History Physical - Adult REPORT#:[id number] REPORT STATUS: Signed REPORT INITIALIZATION DATE:01/05/23 TIME: 113 PATIENT: MATHEW CASTILLO UNIT #: [id number] ROOM/BED: [place] [address] : 59 AGE: 62 SEX: M ATTEND: Salinas Alba MD ADM AUTHOR: Sofia Cheng MECHANICAL SYSTEMS DESIGNER REPT SERVICE DT/TIME: 01/05/23 1134 * ALL edits or amendments must be made on the electronic/computer document * History of Present Illness HPI Chief complaint: Hematuria HPI: 62-year-old male with last medical history of, BPH, s/p bladder lift yesterday by Dr. Del Toro transferred from [place] for urology evaluation secondary to hematuria after bladder irrigation failed. pt was seen and evaluated by Dr. Christianson, has three way mercer with CBI with straw color output. Last admitted to [facility] on 10/16/22 with urinary retention. Abnormal labs: WBC 16.7, lctic acid-2.9, ua with trace leukocyte estrace and wbc >50 CT abd/pelvis 1. Prostatomegaly. Decompressed bladder with a Mercer in place. 2. No hydronephrosis. No enhancing [...] of motion, normal sensory, normal motor function Neuro/TONSORIAL ARTIST: alert, oriented X 3 Skin: dry, intact, [...] (Auto) (14.0 - 32.0 %) 4.5 L Culberson % (Auto) (4.8 - 9.0 %) 6.1 Eos % (Auto) (0.3 - 3.7 %) 0.3 Baso % (Auto) (0.0 - 2.0 %) 0.2 Neut # (Auto) (2.0 - 7.6 x10 3/uL) 15.99 H Lymph # (Auto) (1.0 - 3.8 x10 3/uL) 0.82 L Culberson # (Auto) (0.1 - 0.8 x10 3/uL) [...] (Auto) (14.0 - 32.0 %) 5.4 L Culberson % (Auto) (4.8 - 9.0 %) 5.3 Eos % (Auto) (0.3 - 3.7 %) 0.0 L Baso % (Auto) (0.0 - 2.0 %) 0.2 Neut # (Auto) (2.0 - 7.6 x10 3/uL) 14.77 H Lymph # (Auto) (1.0 - 3.8 x10 3/uL) 0.90 L Culberson # (Auto) (0.1 - 0.8 x10 3/uL) [...] pH (5.0 - 7.0) 7.0 Ur Specific [place] (1.005 - 1.030) 1.005 Urine Protein (NEGATIVE) [...] SCAN - CT ABD PELVIS W/CONT 01/04 1216 Report Impression - Status: SIGNED Entered: 01/04/2023 0803 IMPRESSION: 1. Prostatomegaly. Decompressed bladder with a Mercer in place. 2. No hydronephrosis. No enhancing renal masses. 3. Cholelithiasis and mildly distended gallbladder. 4. Moderate hiatal hernia. Impression By: [email or web address] - Zia Magaña M.D. Diagnosis, Assessment Plan Free Text DxA P Notes Free Text DxA P Notes: Assessment: 62-year-old male with last medical history of, BPH, s/p bladder lift yesterday by Dr. Del Toro transferred from [place] for urology evaluation secondary to hematuria after bladder irrigation failed. pt was seen and evaluated by Dr. Christianson, has three way mercer with CBI with straw color output. Last admitted to [facility] on 10/16/22 with urinary retention. Abnormal labs: WBC 16.7, lctic acid-2.9, ua with trace leukocyte estrace and wbc >50 CT abd/pelvis 1. Prostatomegaly. Decompressed bladder with a Mercer in place. 2. No hydronephrosis. No enhancing [...] and treatment Urology consultation in place Keep Mercer with CBI Ceftriaxone 2 g daily ID consultation Follow-up with blood culture and urine culture I's and O's Replace electrolytes Repeat labs Further recommendation based on patient's clinical course at 0055 at 0739 RPT #:[id number] END OF REPORT [facility] 2023-01-05 01:59:00 [facility] ([facility]) Clinical Note REPORT#:[id number] REPORT STATUS: Signed REPORT INITIALIZATION DATE:01/05/23 TIME: 158 PATIENT: MATHEW CASTILLO UNIT #: [id number] ROOM/BED: [facility] : 59 AGE: 62 SEX: M ATTEND: Salinas Alba MD ADM AUTHOR: Sofia Cheng NP REPT SERVICE DT/TIME: 01/05/23 0159 * ALL edits or amendments must be made on the electronic/computer document * Clinical Note Note: Clinical data reviewed Orders placed at 0222 RPT #:[id number] END OF REPORT [facility] 2023-01-04 20:02:00 [facility] ([facility]) EMERGENCY PROVIDER REPORT REPORT#:[id number] REPORT STATUS: Signed DATE:01/04/23 TIME: 2001 PATIENT: MATHEW CASTILLO UNIT #: [id number] ROOM/BED: [place] [address] AGE: 62 SEX: M PCP PHYS: Lakhwinder Guillermo MD SERVICE AUTHOR: Vee Horton * ALL edits or amendments must be made on the electronic/computer document * Vee Horton 01/04/23 2002: HPI-General Illness Free Text HPI Notes Free Text HPI Notes 62 yo male with HTN, BPH, chronic indwelling mercer cath, s/p bladder lift yesterday per Dr. Del Toro presents with gross hematuria associated with n/v. Denies abdominal pain, weakness, dizziness, chest pain and SOB. Per daughter at bedside patient evaluated at [place] ED WINDOWS APPLICATION ADMINISTRATOR, bladder irrigation attempted without resolution of hematuria. [...] - Adult Stated Complaint BLOOD IN URINE MERCER LEAKING Allergies Coded Allergies: No Known Allergies [...] normoactive Skin Skin No rash Genitourinary General mercer cath in place (gross hematuria noted) Neurologic Neurologic Oriented X3 Interpretation Diagnostics Lab Results Interpretation Considerations Independ review imaging, Reviewed prior records Results Laboratory Tests 01/04/23 2001: [Embedded Image Not Available] Laboratory Tests: 01/04 01/04 01/04 2205 2149 2000 [...] (Auto) (14.0 - 32.0 %) 5.4 L Culberson % (Auto) (4.8 - 9.0 %) 5.3 Eos % (Auto) (0.3 - 3.7 %) 0.0 L Baso % (Auto) (0.0 - 2.0 %) 0.2 Neut # (Auto) (2.0 - 7.6 x10 3/uL) 14.77 H Lymph # (Auto) (1.0 - 3.8 x10 3/uL) 0.90 L Culberson # (Auto) (0.1 - 0.8 x10 3/uL) [...] pH (5.0 - 7.0) 7.0 Ur Specific [place] (1.005 - 1.030) 1.005 Urine Protein (NEGATIVE) [...] IMPRESSION: 1. Prostatomegaly. Decompressed bladder with a Mercer in place. 2. No hydronephrosis. No enhancing renal masses. 3. Cholelithiasis and mildly distended gallbladder. 4. Moderate hiatal hernia. Impression By: Nick Magaña M.D. Re-Evaluation MDM Free Text MDM Notes Free Text MDM Notes 62 yo male with BPH, chronic indwelling mercer cath s/p urolift 1 day WINDOWS APPLICATION ADMINISTRATOR presents to ED 2/2 gross hematuria. Tachycardic on arrival. Exam remarkable for gross hematuria noted to mercer cath bag, actively draining. Differnetials considered UTI, pyelonephritis, sepsis, malignancy, nephrolithiasis. CBC/CMP, CT abdomen pelvis ordered. CBC remarkable for leukocytosis, Hbg/Hct stable. 2051 secondary sepsis bundle ordered 2/2 tahcycardia, low grade fever, leukocytosis in setting of recent urology intervention. CT abdomen/pelvis remarkable for 1. Prostatomegaly. Decompressed bladder with a Mercer in place. 2. No hydronephrosis. No enhancing renal masses.3. Cholelithiasis and mildly distended gallbladder. 4. Moderate hiatal hernia. Mercer draining well troughout ED course, gross hematuria [...] Saw Pt Alone I have reviewed the PA/MECHANICAL SYSTEMS DESIGNER's note and plan of care. I was available for consultation as needed at all times during the patient's visit in the emergency department. I agree with the clinical impression, plan and disposition. at 2148 at 0552 RPT #:[id number] END OF REPORT [facility] 2022-11-19 18:14:00 [facility] ([facility]) Discharge Summary REPORT#:[id number] REPORT STATUS: Signed DATE:11/19/22 TIME: 1813 PATIENT: MATHEW CASTILLO UNIT #: [id number] ROOM/BED: [place] [address] : 59 AGE: 62 SEX: M ATTEND: [...] large amount of urinary retention -Status post Mercer insertion large amount of urine was obtained [...] last medical history of, BPH, transferred from [place] for urology evaluation and treatment secondary to [...] fluid was removed within 10 minutes of Mercer insertion. Patient reported he had been experiencing [...] antibiotics-Zosyn, tamsulosin p.o. Patient was discharged with Mercer in place. The patient was on continuous [...] RLQ tenderness, RUQ normal bowel sounds Genitourinary: mercer Extremities: moves all, no edema-all extremities, normal capillary refill, normal range of motion, normal sensory, normal motor function Neuro/TONSORIAL ARTIST: alert, oriented X 3 Skin: dry, intact, [...] Discharge Instructions Additional Discharge Routines: PCP Follow-Up, Information Resources Director Follow-Up )( Diet: Regular Follow-up Appointments PCP follow up: PCP: Yumiko Geller MD PCP follow up timeframe: In 5 days Special instructions: CAN FU WITH OWN PCP Attending Physician: Attending Physician: Salinas Alba MD Attending physician follow up timeframe: In 1-2 weeks Special instructions: CALL TO SCHEDULE AN APPOINTMENT Consulting provider 1: Provider 1: Dave Del Toro MD Specialty: Urology Special instructions: FOR REMOVAL OF MERCER at [address] [facility] #:[id number] END OF REPORT [facility] 2022-10-26 20:52:00 [id number] [place], [place] [address] PATIENT NAME: MATHEW CASTILLO ADMIT DATE: 10/16/22 ACCOUNT NO: [id number] ROOM NO: [facility] AGE: 62 REPORT TYPE: PROGRESS NOTE SEX: M ADMITTING PHYSICIAN:Salinas Alba MD ATTENDING PHYSICIAN:Salinas Alba MD DATE: 10/25/2022 SUBJECTIVE: The patient examined, chart reviewed, events of last 24 hours noted. The patient clinically is doing fair, remains awake and comfortable. No new problems reported. Remains afebrile. No nausea, vomiting reported. No diarrhea reported. Continues to have indwelling Mercer catheter in place. CURRENT MEDICATIONS: Include benztropine, [...] angles bilaterally. GENITOURINARY: The patient has indwelling Mercer catheter in place. The catheter appears to be working fine and has clear urine and being drained into the bag. EXTREMITIES: Both calves are soft. No calf tenderness. No pedal edema. Peripheral pulses are faintly palpable bilaterally. SKIN: The patient's peripheral IV sites are clean without any evidence of phlebitis. The lower abdominal discomfort has improved. He has an indwelling Mercer catheter in place. LABORATORY DATA: WBC is [...] Emergency Room where he was transferred from [place] with acute urinary retention. He had 3 liters of urine in the bladder and had Mercer catheter in place. The patient was evaluated [...] Date Transcribed: 10/26/2022 21:14:58 DORADO/JORGE/CORETTA Receipt ID: [id number] Authenticated and Edited by Skip Jaffe MD On 11/02/22 2:24:00 AM at 0323 PATIENT NAME: MATHEW CASTILLO [facility] 2022-10-26 19:14:00 [facility] Internal Medicine Prog. Note REPORT#:[id number] REPORT STATUS: Signed DATE:10/26/22 TIME: 1913 PATIENT: MATHEW CASTILLO UNIT #: [id number] ROOM/BED: 6630-1 : 59 AGE: 62 SEX: M ATTEND: Salinas Alba MD ADM AUTHOR: Sofia Cheng NP * ALL edits or amendments must be made on the electronic/computer document * Subjective Chief complaint: Abdominal distention, hydronephrosis HPI: 62-year-old male with last medical history of, BPH, transferred from [place] for urology evaluation and treatment secondary to [...] fluid was removed within 10 minutes of Mercer insertion. Patient reports he has been experiencing [...] Temp 37.2 10/26 170 Pulse 90 10/26 1700 Resp 15 10/26 [...] RLQ tenderness, RUQ normal bowel sounds Genitourinary: mercer Extremities: moves all, no edema-all extremities, normal capillary refill, normal range of motion, normal sensory, normal motor function Neuro/TONSORIAL ARTIST: 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 Rupture of ureter Free Text DxA P Notes Free text DxA P notes: Assessment: 62-year-old male with last medical history of, BPH, transferred from [place] for urology evaluation and treatment secondary to [...] fluid was removed within 10 minutes of Mercer insertion. Patient reports he has been experiencing urinary hesitancy for the past 2 to 3 years. 1. Abdominal distention, severe bilateral hydronephrosis, large amount of urinary retention -Status post Mercer insertion large amount of urine was obtained 2. Acute kidney injury 3. Hypokalemia/hypocalcemia, hyperchloremia 4. Metabolic acidosis 5. Possible BPH 6. Severe bilateral hydronephrosis 7. Hypertension 8. Schizophrenia Plan of care: Admit patient for further evaluation and treatment Urology consultation in place Keep Mercer to bedside drainage I's and O's Monitor [...] will discharge patient home after that with Mercer in place Plan is to follow-up with urology outpatient This was explained to patient's daughter Continue with current medications Fall precaution 10/24/2022 Stable, POC glucose 154 Patient with Mercer to gravity, tolerating p.o. intake Nephro is following. On tamsulosin p.o. Continue pain control, glycemic control, fall precaution Continue medications and present care 10/25/2022 Hypoglycemia 7.8 Blood culture shows no growth after 5 days Patient has no new complaints Mercer to gravity with good urine output. Nephro is following Consultants evaluations noted still on tamsulosin p.o. Continue pain control, glycemic control Fall precaution, continue medications and supportive care at 2225 at 0830 RPT #:[id number] END OF REPORT [facility] 2022-10-26 13:41:00 [facility] Nephrology Progress Note REPORT#:[id number] REPORT STATUS: Signed DATE:10/26/22 TIME: 1341 PATIENT: MATHEW CASTILLO UNIT #: [id number] ROOM/BED: 6630-1 : 59 AGE: 62 SEX: M ATTEND: Salinas Alba MD ADM AUTHOR: Carmen Kemp * ALL edits or amendments must be made on the electronic/computer document * Carmen Kemp 10/26/22 1341: Subjective Chief complaint: Concern for ruptured ureter HPI: The patient seen and examined. Resting in bed, tolerating PO intake w/o any issue. Mercer to gravity, good UOP. Review of Systems [...] CHANDRA (Resolved) -Renal function improved and wnl, mercer to gravity, s/p bicarb gtt. -2/2 post-obstrucitve uropathy, monitor for post-obstructive diuresis. -UA, urine lytes requested and noted, no significant proteinuria. -Per Urology note: Reportedly the patient had 3L of urine in his bladder. CT abdomen from [place] showed that the patient has a very [...] post-obstructive diuresis and electrolyte imbalance Urinary Retention/BPH -Mercer to gravity, Urology following, on Tamsulosin -Per Urology note: Reportedly the patient had 3L of urine in his bladder. CT abdomen from [place] showed that the patient has a very [...] nurse and Dr. Koehler. Toby Koehler 10/26/22 1812: Attestations Physician Attestation Reviewed findings plan: Patient examined Renal function improved and wnl, mercer to gravity, -2/2 post-obstrucitve uropathy, replace electrolytes as needed, S/P antibiotics continue flomax, Agree with above A/P at 1342 at 1813 RPT #:[id number] END OF REPORT [facility] 2022-10-25 21:28:00 [facility] [place] [facility] ([facility]) Infectious Dis. Progress Note REPORT#:[id number] REPORT STATUS: Signed DATE:10/25/22 TIME: 2127 PATIENT: MATHEW CASTILLO UNIT #: [id number] ROOM/BED: [place] [address] : 58 AGE: 62 SEX: M ATTEND: [...] new nosocomial acquired infection. at 0256 RPT #:[id number] END OF REPORT [facility] 2022-10-25 19:13:00 [facility] ([facility]) Nephrology Progress Note REPORT#:[id number] REPORT STATUS: Signed DATE:10/25/22 TIME: 1912 PATIENT: MTAHEW CASTILLO UNIT #: [id number] ROOM/BED: [place] [address] : 58 AGE: 62 SEX: M ATTEND: Salinas Alba MD ADM AUTHOR: Toby Koehler MD * ALL edits or amendments must be made on the electronic/computer document * Subjective Chief complaint: Concern for ruptured ureter HPI: The patient seen and examined. Resting in bed, tolerating PO intake w/o any issue. Mercer to gravity, good UOP. Objective General VS/I [...] (Auto) (14.0 - 32.0 %) 10.6 L Culberson % (Auto) (4.8 - 9.0 %) 4.4 L Eos % (Auto) (0.3 - 3.7 %) 2.4 Baso % (Auto) (0.0 - 2.0 %) 0.5 Neut # (Auto) (2.0 - 7.6 x10 3/uL) 12.30 H Lymph # (Auto) (1.0 - 3.8 x10 3/uL) 1.60 Culberson # (Auto) (0.1 - 0.8 x10 3/uL) [...] CHANDRA (Resolved) -Renal function improved and wnl, mercer to gravity, s/p bicarb gtt. -2/2 post-obstrucitve uropathy, monitor for post-obstructive diuresis. -UA, urine lytes requested and noted, no significant proteinuria. -Per Urology note: Reportedly the patient had 3L of urine in his bladder. CT abdomen from [place] showed that the patient has a very [...] post-obstructive diuresis and electrolyte imbalance Urinary Retention/BPH -Mercer to gravity, Urology following, on Tamsulosin -Per Urology note: Reportedly the patient had 3L of urine in his bladder. CT abdomen from [place] showed that the patient has a very [...] abx per primary team. at 1914 RPT #:[id number] END OF REPORT [facility] 2022-10-25 19:12:00 [facility] Internal Medicine Prog. Note REPORT#:[id number] REPORT STATUS: Signed DATE:10/25/22 TIME: 1911 PATIENT: MATHEW CASTILLO UNIT #: [id number] ROOM/BED: [place] [address] : 58 AGE: 62 SEX: M ATTEND: Salinas Alba MD ADM AUTHOR: Sofia Cheng NP * ALL edits or amendments must be made on the electronic/computer document * Subjective Chief complaint: Abdominal distention, hydronephrosis HPI: 62-year-old male with last medical history of, BPH, transferred from [place] for urology evaluation and treatment secondary to [...] fluid was removed within 10 minutes of Mercer insertion. Patient reports he has been experiencing [...] (Auto) (14.0 - 32.0 %) 10.6 L Culberson % (Auto) (4.8 - 9.0 %) 4.4 L Eos % (Auto) (0.3 - 3.7 %) 2.4 Baso % (Auto) (0.0 - 2.0 %) 0.5 Neut # (Auto) (2.0 - 7.6 x10 3/uL) 12.30 H Lymph # (Auto) (1.0 - 3.8 x10 3/uL) 1.60 Culberson # (Auto) (0.1 - 0.8 x10 3/uL) [...] RLQ tenderness, RUQ normal bowel sounds Genitourinary: mercer Extremities: moves all, no edema-all extremities, normal capillary refill, normal range of motion, normal sensory, normal motor function Neuro/TONSORIAL ARTIST: 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 Rupture of ureter Free Text DxA P Notes Free text DxA P notes: Assessment: 62-year-old male with last medical history of, BPH, transferred from [place] for urology evaluation and treatment secondary to [...] fluid was removed within 10 minutes of Mercer insertion. Patient reports he has been experiencing urinary hesitancy for the past 2 to 3 years. 1. Abdominal distention, severe bilateral hydronephrosis, large amount of urinary retention -Status post Mercer insertion large amount of urine was obtained 2. Acute kidney injury 3. Hypokalemia/hypocalcemia, hyperchloremia 4. Metabolic acidosis 5. Possible BPH 6. Severe bilateral hydronephrosis 7. Hypertension 8. Schizophrenia Plan of care: Admit patient for further evaluation and treatment Urology consultation in place Keep Mercer to bedside drainage I's and O's Monitor [...] will discharge patient home after that with Mercer in place Plan is to follow-up with urology outpatient This was explained to patient's daughter Continue with current medications Fall precaution 10/24/2022 Stable, POC glucose 154 Patient with Mercer to gravity, tolerating p.o. intake Nephro is following. On tamsulosin p.o. Continue pain control, glycemic control, fall precaution Continue medications and present care 10/25/2022 Hypoglycemia 7.8 Blood culture shows no growth after 5 days Patient has no new complaints Mercer to gravity with good urine output. Nephro is following Consultants evaluations noted still on tamsulosin p.o. Continue pain control, glycemic control Fall precaution, continue medications and supportive care at 2224 at 0830 [facility] #:[id number] END OF REPORT [facility] 2022-10-25 10:44:00 [id number] [place] [address] PATIENT NAME: MATHEW CASTILLO ADMIT DATE: 10/16/22 ACCOUNT NO: [id number] ROOM NO: G.6630 AGE: 62 REPORT TYPE: [...] angles bilaterally. GENITOURINARY: The patient has indwelling Mercer catheter in place. The catheter appears to be working fine and has clear urine and being drained into the bag. EXTREMITIES: Both calves are soft. No calf tenderness. No pedal edema. Peripheral pulses are faintly palpable bilaterally. SKIN: The patient's peripheral IV sites are clean without any evidence of phlebitis. The lower abdominal discomfort has improved. He has an indwelling Mercer catheter in place. LABORATORY DATA: No new laboratory studies available to review for today. The patient's blood cultures x2 done on October 20 are negative so far at 4 days of incubation. ASSESSMENT AND PLAN: The patient with multiple comorbidities including PATIENT NAME: MATHEW CASTILLO prostatic symptoms for over 2 years, was admitted through Emergency Room initially to hospital in [place] with urinary retention of 2 days' duration and was found to have some extravasation of urine in the peritoneal cavity. The patient was treated with IV antibiotics and had a Mercer catheter inserted and about 3 liters of urine was drained and the Mercer was left in place and he was transferred to [facility] for urology evaluation. The patient was evaluated by Dr. Dave Del Toro and is being managed conservatively at the [...] Date Transcribed: 10/25/2022 11:24:45 DORADO/JENNI Receipt ID: [id number] Authenticated and Edited by Skip Jaffe MD On 11/02/22 2:23:50 AM at 0323 PATIENT NAME: MATHEW CASTILLO [facility] 2022-10-24 22:59:00 [facility] Internal Medicine Prog. Note REPORT#:[id number] REPORT STATUS: Signed DATE:10/24/22 TIME: 2258 PATIENT: MATHEW CASTILLO UNIT #: [id number] ROOM/BED: [place] [address] : 58 AGE: 62 SEX: M ATTEND: Salinas Alba MD ADM AUTHOR: Sofia Cheng NP * ALL edits or amendments must be made on the electronic/computer document * Subjective Chief complaint: Abdominal distention, hydronephrosis HPI: 62-year-old male with last medical history of, BPH, transferred from [place] for urology evaluation and treatment secondary to [...] fluid was removed within 10 minutes of Mercer insertion. Patient reports he has been experiencing [...] 1950 37.1 72 14 111/65 80.3 96 07/20 1656 36.8 64 15 107/68 80.8 97 [...] RLQ tenderness, RUQ normal bowel sounds Genitourinary: mercer Extremities: moves all, no edema-all extremities, normal capillary refill, normal range of motion, normal sensory, normal motor function Neuro/TONSORIAL ARTIST: 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 Rupture of ureter Free Text DxA P Notes Free text DxA P notes: Assessment: 62-year-old male with last medical history of, BPH, transferred from [place] for urology evaluation and treatment secondary to [...] fluid was removed within 10 minutes of Mercer insertion. Patient reports he has been experiencing urinary hesitancy for the past 2 to 3 years. 1. Abdominal distention, severe bilateral hydronephrosis, large amount of urinary retention -Status post Mercer insertion large amount of urine was obtained 2. Acute kidney injury 3. Hypokalemia/hypocalcemia, hyperchloremia 4. Metabolic acidosis 5. Possible BPH 6. Severe bilateral hydronephrosis 7. Hypertension 8. Schizophrenia Plan of care: Admit patient for further evaluation and treatment Urology consultation in place Keep Mercer to bedside drainage I's and O's Monitor [...] will discharge patient home after that with Mercer in place Plan is to follow-up with urology outpatient This was explained to patient's daughter Continue with current medications Fall precaution 10/24/2022 Stable, POC glucose 154 Patient with Mercer to gravity, tolerating p.o. intake Nephro is following. On tamsulosin p.o. Continue pain control, glycemic control, fall precaution Continue medications and present care at 2223 at 0830 RPT #:[id number] END OF REPORT [facility] 2022-10-24 19:41:00 [facility] ([facility]) Infectious Dis. Progress Note REPORT#:[id number] REPORT STATUS: Signed DATE:10/24/22 TIME: 1940 PATIENT: MATHEW CASTILLO UNIT #: [id number] ROOM/BED: [place] [address] : 59 AGE: 62 SEX: M ATTEND: [...] closely for any diarrhea. at 0316 RPT #:[id number] END OF REPORT [facility] 2022-10-24 19:12:00 [id number] [place], [place] [address] PATIENT NAME: MATHEW CASTILLO ADMIT DATE: 10/16/22 ACCOUNT NO: [id number] ROOM NO: G.6630 AGE: 62 REPORT TYPE: [...] angles bilaterally. GENITOURINARY: The patient has indwelling Mercer catheter in place. The catheter appears to [...] problems was initially admitted to hospital in [place] where he had presented with urinary retention. The patient was found to have 3 liters of urine in the bladder. He had a Mercer catheter inserted and subsequently was transferred to [facility] for urology evaluation. He was initially treated [...] Date Transcribed: 10/24/2022 19:51:44 DORADO/GLORIA Receipt ID: [id number] Authenticated and Edited by Skip Jaffe MD On 11/02/22 2:23:34 AM at 0323 PATIENT NAME: MATHEW CASTILLO [facility] 2022-10-24 16:08:00 [facility] ([facility]) Nephrology Progress Note REPORT#:[id number] REPORT STATUS: Signed DATE:10/24/22 TIME: 1607 PATIENT: MATHEW CASTILLO UNIT #: [id number] ROOM/BED: 6630-1 : 59 AGE: 62 SEX: M ATTEND: Salinas Alba MD ADM AUTHOR: Carmen Kemp * ALL edits or amendments must be made on the electronic/computer document * Carmen Kemp 10/24/22 1608: Subjective Chief complaint: Concern for ruptured ureter HPI: The patient seen and examined. Resting in bed, tolerating PO intake w/o any issue. Mercer to gravity, good UOP. Review of Systems [...] CHANDRA (Resolved) -Renal function improved and wnl, mercer to gravity, s/p bicarb gtt. -2/2 post-obstrucitve uropathy, monitor for post-obstructive diuresis. -UA, urine lytes requested and noted, no significant proteinuria. -Per Urology note: Reportedly the patient had 3L of urine in his bladder. CT abdomen from [place] showed that the patient has a very [...] post-obstructive diuresis and electrolyte imbalance Urinary Retention/BPH -Mercer to gravity, Urology following, on Tamsulosin -Per Urology note: Reportedly the patient had 3L of urine in his bladder. CT abdomen from [place] showed that the patient has a very [...] patient's nurse, and . Toby Koehler S 10/24/222124: Attestations Physician Attestation Reviewed findings plan: Patient examined Renal function improved and wnl, mercer to gravity, -2/2 post-obstrucitve uropathy, replace electrolytes as needed, emperic antibiotics per admitting team, agree with above A/P at 1740 at 0485 RPT #:[id number] END OF REPORT [facility] 2022-10-23 21:33:00 [facility] Internal Medicine Prog. Note REPORT#:[id number] REPORT STATUS: Signed DATE:10/23/22 TIME: 2132 PATIENT: MATHEW CASTILLO UNIT #: [id number] ROOM/BED: [place] [address] : 58 AGE: 62 SEX: M ATTEND: Salinas Alba MD ADM AUTHOR: Sofia Cheng NP * ALL edits or amendments must be made on the electronic/computer document * Subjective Chief complaint: Abdominal distention, hydronephrosis HPI: 62-year-old male with last medical history of, BPH, transferred from [place] for urology evaluation and treatment secondary to [...] fluid was removed within 10 minutes of Mercer insertion. Patient reports he has been experiencing [...] O: Laboratory Tests 10/23 1622 1133 0825 0605 Chemistry Sodium (134 - 147 mEq/L) 138 [...] Report Impression - Status: SIGNED Entered: 10/21/2022 09 IMPRESSION: No sonographic evidence for DVT Impression [...] 1899 Temp 37.1 10/23 1899 Pulse 69 10/230 Resp 16 10/23 1899 24 hour I [...] RLQ tenderness, RUQ normal bowel sounds Genitourinary: mercer Extremities: moves all, no edema-all extremities, normal capillary refill, normal range of motion, normal sensory, normal motor function Neuro/TONSORIAL ARTIST: 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 Rupture of ureter Free Text DxA P Notes Free text DxA P notes: Assessment: 62-year-old male with last medical history of, BPH, transferred from [place] for urology evaluation and treatment secondary to [...] fluid was removed within 10 minutes of Mercer insertion. Patient reports he has been experiencing urinary hesitancy for the past 2 to 3 years. 1. Abdominal distention, severe bilateral hydronephrosis, large amount of urinary retention -Status post Mercer insertion large amount of urine was obtained 2. Acute kidney injury 3. Hypokalemia/hypocalcemia, hyperchloremia 4. Metabolic acidosis 5. Possible BPH 6. Severe bilateral hydronephrosis 7. Hypertension 8. Schizophrenia Plan of care: Admit patient for further evaluation and treatment Urology consultation in place Keep Mercer to bedside drainage I's and O's Monitor [...] will discharge patient home after that with Mercer in place Plan is to follow-up with urology outpatient This was explained to patient's daughter Continue with current medications Fall precaution at 0250 at 0842 RPT #:[id number] END OF REPORT [facility] 2022-10-23 18:51:00 [facility] ([facility]) Infectious Dis. Progress Note REPORT#:[id number] REPORT STATUS: Signed DATE:10/23/22 TIME: 1850 PATIENT: MATHEW CASTILLO UNIT #: [id number] ROOM/BED: 6630-1 : 59 AGE: 62 SEX: [...] closely for any diarrhea. at 0256 RPT #:[id number] END OF REPORT [facility] 2022-10-23 18:27:00 [id number] [place], [place] [address] PATIENT NAME: AMTHEW CASTILLO ADMIT DATE: 10/16/22 ACCOUNT NO: [id number] ROOM NO: [facility] AGE: 62 REPORT TYPE: [...] No diarrhea reported. Continues to have indwelling Mercer catheter in place. Remains afebrile with a [...] angles bilaterally. GENITOURINARY: The patient has indwelling Mercer catheter in place. The catheter appears to [...] Emergency Room where he was transferred from [facility] because of urinary retention. The patient presented to [facility] with 2 days' history of not able to pass any urine and he was found to have 3 liters urine in his bladder with some extravasation of urine into the peritoneal cavity. The patient had a Mercer catheter placed and bladder was relieved. He was transferred to [facility] for evaluation by Urology Service. The patient was kept on IV ceftriaxone. 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, and at that time, he [...] Date Transcribed: 10/23/2022 18:54:06 ESTRADA/GLORIA Receipt ID: [id number] Authenticated and Edited by Skip Jaffe MD On 11/02/22 2:23:13 AM at 0225 PATIENT NAME: MATHEW CASTILLO [facility] 2022-10-23 13:24:00 [facility] ([facility]) Nephrology Progress Note REPORT#:[id number] REPORT STATUS: Signed DATE:10/23/22 TIME: 1324 PATIENT: MATHEW ACSTILLO UNIT #: [id number] ROOM/BED: [place] [address] : 58 AGE: 62 SEX: M ATTEND: Salinas Alba MD ADM AUTHOR: Carmen Kemp * ALL edits or amendments must be made on the electronic/computer document * Carmen Kemp 10/23/22 1324: Subjective Chief complaint: Concern for ruptured ureter HPI: The patient seen and examined. Resting in bed, tolerating PO intake w/o any issue. Mercer to gravity, good UOP. Review of Systems [...] CHANDRA (Resolved) -Renal function improved and wnl, mercer to gravity, s/p bicarb gtt. -2/2 post-obstrucitve uropathy, monitor for post-obstructive diuresis. -UA, urine lytes requested and noted, no significant proteinuria. -Per Urology note: Reportedly the patient had 3L of urine in his bladder. CT abdomen from [place] showed that the patient has a very [...] post-obstructive diuresis and electrolyte imbalance Urinary Retention/BPH -Mercer to gravity, Urology following, on Tamsulosin -Per Urology note: Reportedly the patient had 3L of urine in his bladder. CT abdomen from [place] showed that the patient has a very [...] Patient examined Renal function improved and wnl, mercer to gravity, -2/2 post-obstrucitve uropathy, replace electrolytes as needed, emperic antibiotics per admitting team, agree with above A/P at 1741 at 9883 RPT #:[id number] END OF REPORT [facility] 2022-10-22 18:32:00 [facility] ([facility]) Infectious Dis. 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 Remains afebrile at the present time. [...] empiric IV antibiotics for now. at 0219 [facility] #:[id number] END OF REPORT [facility] 2022-10-22 18:20:00 [id number] [place] [address] PATIENT NAME: MATHEW CASTILLO ADMIT DATE: 10/16/22 ACCOUNT NO: [id number] ROOM NO: [facility] AGE: 62 REPORT TYPE: [...] reported. The patient continues to have indwelling Mercer catheter in place. The lower abdominal discomfort [...] angles bilaterally. GENITOURINARY: The patient has indwelling Mercer catheter in place. The catheter appears to [...] was initially admitted through emergency room at [facility] with acute urinary retention. The patient [...] for urology evaluation, he was transferred to [facility]. 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 Note REPORT#:[id number] REPORT STATUS: Signed DATE:10/22/22 TIME: 1814 PATIENT: MATHEW CASTILLO UNIT #: [id number] ROOM/BED: 6630-1 : 59 AGE: 62 SEX: M ATTEND: Salinas Alba MD ADM AUTHOR: Sofia Cheng NP * ALL edits or amendments must be made on the electronic/computer document * Subjective Chief complaint: Abdominal distention, hydronephrosis HPI: 62-year-old male with last medical history of, BPH, transferred from [place] for urology evaluation and treatment secondary to [...] fluid was removed within 10 minutes of Mercer insertion. Patient reports he has been experiencing [...] RLQ tenderness, RUQ normal bowel sounds Genitourinary: mercer Extremities: moves all, no edema-all extremities, normal capillary refill, normal range of motion, normal sensory, normal motor function Neuro/TONSORIAL ARTIST: 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 Rupture of ureter Free Text DxA P Notes Free text DxA P notes: Assessment: 62-year-old male with last medical history of, BPH, transferred from [place] for urology evaluation and treatment secondary to [...] fluid was removed within 10 minutes of Mercer insertion. Patient reports he has been experiencing urinary hesitancy for the past 2 to 3 years. 1. Abdominal distention, severe bilateral hydronephrosis, large amount of urinary retention -Status post Mercer insertion large amount of urine was obtained 2. Acute kidney injury 3. Hypokalemia/hypocalcemia, hyperchloremia 4. Metabolic acidosis 5. Possible BPH 6. Severe bilateral hydronephrosis 7. Hypertension 8. Schizophrenia Plan of care: Admit patient for further evaluation and treatment Urology consultation in place Keep Mercer to bedside drainage I's and O's Monitor [...] supportive care at 0314 at 0842 RPT #:[id number] END OF REPORT [facility] 2022-10-22 09:31:00 [facility] ([facility] Nephrology Progress Note REPORT#:[id number] REPORT STATUS: Signed DATE:10/22/22 TIME: 930 PATIENT: MATHEW CASTILLO UNIT #: [id number] ROOM/BED: [place] [address] : 59 AGE: 62 SEX: M ATTEND: Salinas Alba MD ADM AUTHOR: Carmen Kemp * ALL edits or amendments must be made on the electronic/computer document * Carmen Kemp 10/22/22 0931: Subjective Chief complaint: Concern for ruptured ureter HPI: The patient seen and examined. Resting in bed, tolerating PO intake w/o any issue. Mercer to gravity, good UOP. Review of Systems [...] 14 121/78 92.3 98 Room air 10/21 2002 36.8 84 14 118/77 90.5 97 Room [...] 10/22 10/22 10/22 10/21 1700 1119 0737 0689 2003 Chemistry Sodium (134 - 147 mEq/L) [...] CHANDRA (Resolved) -Renal function improved and wnl, mercer to gravity, s/p bicarb gtt. -2/2 post-obstrucitve uropathy, monitor for post-obstructive diuresis. -UA, urine lytes requested and noted, no significant proteinuria. -Per Urology note: Reportedly the patient had 3L of urine in his bladder. CT abdomen from [place] showed that the patient has a very [...] post-obstructive diuresis and electrolyte imbalance Urinary Retention/BPH -Mercer to gravity, Urology following, on Tamsulosin -Per Urology note: Reportedly the patient had 3L of urine in his bladder. CT abdomen from [place] showed that the patient has a very [...] patient's nurse, and . Toby Koehler 10/22/22 7841: Attestations Physician Attestation Reviewed findings plan: Patient examined Renal function improved and wnl, mercer to gravity, -2/2 post-obstrucitve uropathy, replace electrolytes as needed, agree with above A/P at 1842 at 2227 RPT #:[id number] END OF REPORT [facility] 2022-10-21 20:48:00 [facility] Internal Medicine Prog. Note REPORT#:[id number] REPORT STATUS: Signed DATE:10/21/22 TIME: 2047 PATIENT: MATHEW CASTILLO UNIT #: [id number] ROOM/BED: [place] [address] : 59 AGE: 62 SEX: M ATTEND: Salinas Alba MD ADM AUTHOR: Sofia Cheng NP * ALL edits or amendments must be made on the electronic/computer document * Subjective Chief complaint: Abdominal distention, hydronephrosis HPI: 62-year-old male with last medical history of, BPH, transferred from [place] for urology evaluation and treatment secondary to [...] fluid was removed within 10 minutes of Mercer insertion. Patient reports he has been experiencing [...] AC HS SUBQ Results Findings/Data: Laboratory Tests 10/21/22425: [Embedded Image Not Available] Laboratory Tests 10/21 [...] RLQ tenderness, RUQ normal bowel sounds Genitourinary: mercer Extremities: moves all, no edema-all extremities, normal capillary refill, normal range of motion, normal sensory, normal motor function Neuro/TONSORIAL ARTIST: 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 Rupture of ureter Free Text DxA P Notes Free text DxA P notes: Assessment: 62-year-old male with last medical history of, BPH, transferred from [place] for urology evaluation and treatment secondary to [...] fluid was removed within 10 minutes of Mercer insertion. Patient reports he has been experiencing urinary hesitancy for the past 2 to 3 years. 1. Abdominal distention, severe bilateral hydronephrosis, large amount of urinary retention -Status post Mercer insertion large amount of urine was obtained 2. Acute kidney injury 3. Hypokalemia/hypocalcemia, hyperchloremia 4. Metabolic acidosis 5. Possible BPH 6. Severe bilateral hydronephrosis 7. Hypertension 8. Schizophrenia Plan of care: Admit patient for further evaluation and treatment Urology consultation in place Keep Mercer to bedside drainage I's and O's Monitor [...] and present at 0104 at 1009 RPT #:[id number] END OF REPORT [facility] 2022-10-21 19:01:00 [facility] ([facility]) Infectious Dis. Progress Note REPORT#:[id number] REPORT STATUS: Signed DATE:10/21/22 TIME: 1900 PATIENT: MATHEW CASTILLO UNIT #: [id number] ROOM/BED: [place] [id number] : 58 AGE: 62 SEX: M ATTEND: [...] Discussed with Skylar MENDIOLA. at 0242 RPT #:[id number] END OF REPORT [facility] 2022-10-21 11:23:00 [facility] ([facility]) Nephrology Progress Note REPORT#:[id number] REPORT STATUS: Signed DATE:10/21/22 TIME: 112 PATIENT: MATHEW CASTILLO UNIT #: [id number] [place]BED: [facility] [place] : [place] AGE: 62 SEX: M ATTEND: Salinas Alba MD ADM AUTHOR: Carmen Kemp * ALL edits or amendments must be made on the electronic/computer document * Carmen Kemp 10/21/22 1123: Subjective Chief complaint: Concern for ruptured ureter HPI: The patient seen and examined. Resting in bed, tolerating PO intake w/o any issue. Mercer to gravity, good UOP. Review of Systems [...] By: KemABEric Ac M.D. Diagnosis, Assessment Plan Free Text A P: Assessment and Plan: CHANDRA (Resolved) -Renal function improved and wnl, mercer to gravity, s/p bicarb gtt. -2/2 post-obstrucitve uropathy, monitor for post-obstructive diuresis. -UA, urine lytes requested -Per Urology note: Reportedly the patient had 3L of urine in his bladder. CT abdomen from [place] showed that the patient has a very [...] post-obstructive diuresis and electrolyte imbalance Urinary Retention/BPH -Mercer to gravity, Urology following, on Tamsulosin -Per Urology note: Reportedly the patient had 3L of urine in his bladder. CT abdomen from [place] showed that the patient has a very [...] Ptient examined Renal function improved and wnl, mercer to gravity, -2/2 post-obstrucitve uropathy, monitor for post-obstructive diuresis, low K replaced agree with above A/P at 1640 at 2055 [facility] #:[id number] END OF REPORT [facility] 2022-10-21 03:59:00 [id number] [place] [id number] PATIENT NAME: MATHEW CASTILLO ADMIT DATE: 10/16/22 ACCOUNT NO: [id number] ROOM NO: [id number] AGE: 62 REPORT TYPE: [...] who was initially admitted to hospital in [place] where he presented with acute urinary retention. The patient reportedly was unable to pass urine for 2 days and he was found to have markedly distended bladder with bilateral hydronephrosis and there was a suspicion for extravasation of urine. The patient had a Mercer catheter placed at that facility and subsequently he started to have urine output and his bladder apparently had about 3 liters of urine. The patient was also found to have acute renal failure. Because of the need for urology evaluation, he was transferred to [facility] on 10/16/2022 for admission. 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 Denies any nausea, vomiting or diarrhea. Denies any chest pain, cough, expectoration, or shortness of breath. He continues to have a Mercer catheter in place and admits to having suprapubic area soreness and pain, however, states that the pain and soreness he had at the time of presentation to the [facility] has resolved. Denies any joint pains. 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 GENITOURINARY: The patient has indwelling Mercer catheter in place. The catheter appears to [...] WBC yesterday was around PATIENT NAME: MATHEW CSATILLO 10,000 with hemoglobin of 12, hematocrit of [...] patient had a urinalysis done on 10/19/2022 civil engineering teacher that showed slightly cloudy urine with negative [...] The patient had 2 blood cultures done civil engineering teacher today, which are incubating. IMPRESSION: The patient with multiple comorbidities including history of schizophrenia and benign prostatic hypertrophy with worsening urinary difficulties for last over 2 years, was admitted through emergency room where he was transferred from [facility] because of need for urology evaluation. [...] to 37.8 degrees Celsius last night and civil engineering teacher and had developed marked leukocytosis. Clinically, he [...] clinical course of the PATIENT NAME: YUKI CASTILLORELL SINCERE patient. Thank you again for inviting me to participate in the care of your patient. I will continue to follow along with you. The case was discussed with MARLENA Cheng, and with the patient's nursing staff. Dictated By: Skip Jaffe MD Date Dictated: 10/21/2022 03:59:46 Date Transcribed: 10/21/2022 04:40:04 DORADO/MAN Receipt ID: [id number] Authenticated by Skip Jaffe MD On 11/02/2022 02:22:37 AM at 0222 PATIENT NAME: YUKI CASTILLOYENNI POST [facility] 2022-10-20 20:34:00 [facility] Nephrology Progress Note REPORT#:[id number] REPORT STATUS: Signed DATE:10/20/22 TIME: 2033 PATIENT: YUKI CASTILLOYENNI POST UNIT #: [id number] ROOM/BED: [place] [id number] : 58 AGE: 62 SEX: M ATTEND: Salinas Alba MD ADM AUTHOR: Toby Koehler MD * ALL edits or amendments must be made on the electronic/computer document * Subjective Chief complaint: Concern for ruptured ureter HPI: The patient seen and examined. Resting in bed, denies any N/V/D, tolerating PO intake w/o any issue. Mercer to gravity, good UOP. Objective General VS/I [...] Coagulation INR (0.8 - 1.2) 1.1 PTT ([facility]) (25.0 - 39.5 Seconds) 26.1 PT Patient/Control [...] - 32.0 %) 9.5 L 7.3 L Culberson % (Auto) (4.8 - 9.0 %) 7.2 7.5 Eos % (Auto) (0.3 - 3.7 %) 2.6 2.2 Baso % (Auto) (0.0 - 2.0 %) 0.4 0.3 Neut # (Auto) (2.0 - 7.6 x10 3/uL) 13.75 H 15.38 H Lymph # (Auto) (1.0 - 3.8 x10 3/uL) 1.67 1.40 Culberson # (Auto) (0.1 - 0.8 x10 3/uL) [...] Free Text A P: Assessment and Plan: HCANDRA (Resolved) -Renal function improved and wnl, mercer to gravity, on bicarb gtt, will d/c now. -2/2 post-obstrucitve uropathy, monitor for post-obstructive diuresis. -UA, urine lytes requested -Per Urology note: Reportedly the patient had 3L of urine in his bladder. CT abdomen from [place] showed that the patient has a very [...] post-obstructive diuresis and electrolyte imbalance Urinary Retention/BPH -Mercer to gravity, Urology following, on Tamsulosin -Per Urology note: Reportedly the patient had 3L of urine in his bladder. CT abdomen from [place] showed that the patient has a very [...] Schizophrenia -Home medications resumed at 2150 RPT #:[id number] END OF REPORT [facility] 2022-10-20 18:11:00 [facility] Internal Medicine Prog. Note REPORT#:[id number] REPORT STATUS: Signed DATE:10/20/22 TIME: 1810 PATIENT: MATHEW CASTILLO UNIT #: [id number] ROOM/BED: [address] : 58 AGE: 62 SEX: M ATTEND: Salinas Alba MD ADM AUTHOR: Sofia Cheng NP * ALL edits or amendments must be made on the electronic/computer document * Subjective Chief complaint: Abdominal distention, hydronephrosis HPI: 62-year-old male with last medical history of, BPH, transferred from [place] for urology evaluation and treatment secondary to [...] fluid was removed within 10 minutes of Mercer insertion. Patient reports he has been experiencing [...] - 54 ng/L) < 3 < 3 10/205 0115 0115 1917 Chemistry Sodium (134 - [...] - 32.0 %) 9.5 L 7.3 L Culberson % (Auto) (4.8 - 9.0 %) 7.2 7.5 Eos % (Auto) (0.3 - 3.7 %) 2.6 2.2 Baso % (Auto) (0.0 - 2.0 %) 0.4 0.3 Neut # (Auto) (2.0 - 7.6 x10 3/uL) 13.75 H 15.38 H Lymph # (Auto) (1.0 - 3.8 x10 3/uL) 1.67 1.40 Culberson # (Auto) (0.1 - 0.8 x10 3/uL) [...] RADIOLOGY - XR CHEST 1 V 10/20 010 [...] RLQ tenderness, RUQ normal bowel sounds Genitourinary: mercer Extremities: moves all, no edema-all extremities, normal capillary refill, normal range of motion, normal sensory, normal motor function Neuro/TONSORIAL ARTIST: 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 Rupture of ureter Free Text DxA P Notes Free text DxA P notes: Assessment: 62-year-old male with last medical history of, BPH, transferred from [place] for urology evaluation and treatment secondary to [...] fluid was removed within 10 minutes of Mercer insertion. Patient reports he has been experiencing urinary hesitancy for the past 2 to 3 years. 1. Abdominal distention, severe bilateral hydronephrosis, large amount of urinary retention -Status post Mercer insertion large amount of urine was obtained 2. Acute kidney injury 3. Hypokalemia/hypocalcemia, hyperchloremia 4. Metabolic acidosis 5. Possible BPH 6. Severe bilateral hydronephrosis 7. Hypertension 8. Schizophrenia Plan of care: Admit patient for further evaluation and treatment Urology consultation in place Keep Mercer to bedside drainage I's and O's Monitor [...] supportive care at 0141 at 1009 RPT #:[id number] END OF REPORT [facility] 2022-10-20 17:06:00 [facility] ([facility]) Infect Disease Consult Note REPORT#:[id number] REPORT STATUS: Signed DATE:10/20/22 TIME: 1706 PATIENT: MATHEW CASTILLO UNIT #: [id number] ROOM/BED: [place] [address] : 58 AGE: 62 SEX: M ATTEND: [...] No Known Allergies (10/16/22) at 0239 RPT #:[id number] END OF REPORT [facility] 2022-10-20 01:07:00 [id number] [place] [id number] PATIENT NAME: MATHEW CASTILLO ADMIT DATE: 10/16/22 ACCOUNT NO: [id number] ROOM NO: [facility] [place] AGE: 62 REPORT TYPE: eELECTROCARDIOGRAM REPORT SEX: M ADMITTING PHYSICIAN:Salinas Alba MD ATTENDING PHYSICIAN:Salinas Alba MD Order: [id number] Test Reason : Sepsis Test Date/Time Stamp: [place] Oct 20 2022 01:07:09 Blood Pressure : [...] PM Referred By: Salinas Dukes Confirmed by:ESMER LYMAN MD at 1247 PATIENT NAME: MATHEW CASTILLO [facility] 2022-10-19 22:43:00 [facility] Internal Medicine Prog. Note REPORT#:[id number] REPORT STATUS: Signed DATE:10/19/22 TIME: 2242 PATIENT: MATHEW CASTILLO UNIT #: [id number] ROOM/BED: [place] [address] : 58 AGE: 62 SEX: M ATTEND: Salinas Alba MD ADM AUTHOR: Sofia Cheng NP * ALL edits or amendments must be made on the electronic/computer document * Subjective Chief complaint: Abdominal distention, hydronephrosis HPI: 62-year-old male with last medical history of, BPH, transferred from [place] for urology evaluation and treatment secondary to [...] fluid was removed within 10 minutes of Mercer insertion. Patient reports he has been experiencing [...] - 2.40 mg/dL) 1.48 L 10/1840 2012 8049 3480 9546 Chemistry POC Glucose (70 - 110 MG/DL) [...] - 32.0 %) 15.7 15.6 10.6 L Culberson % (Auto) (4.8 - 9.0 %) 8.5 10.1 H 12.8 H Eos % (Auto) (0.3 - 3.7 %) 6.0 H 7.5 H 2.7 Baso % (Auto) (0.0 - 2.0 %) 0.7 0.7 0.4 Neut # (Auto) (2.0 - 7.6 x10 3/uL) 6.09 5.53 8.23 H Lymph # (Auto) (1.0 - 3.8 x10 3/uL) 1.48 1.39 1.22 Culberson # (Auto) (0.1 - 0.8 x10 3/uL) [...] pH (5.0 - 7.0) 5.0 Ur Specific [place] (1.005 - 1.030) 1.015 Urine Protein (NEGATIVE) [...] 10/19 10/19 10/19 10/19 1917 1615 1135 8190 0409 Chemistry Sodium (134 - 147 mEq/L) 139 [...] (1.80 - 2.40 mg/dL) 1.65 L Microbiology: 07/15 0347 NASAL: MRSA DNA Surveillance Screen - COMP [...] RLQ tenderness, RUQ normal bowel sounds Genitourinary: mercer Extremities: moves all, no edema-all extremities, normal capillary refill, normal range of motion, normal sensory, normal motor function Neuro/TONSORIAL ARTIST: 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 Rupture of ureter Free Text DxA P Notes Free text DxA P notes: Assessment: 62-year-old male with last medical history of, BPH, transferred from [place] for urology evaluation and treatment secondary to [...] fluid was removed within 10 minutes of Mercer insertion. Patient reports he has been experiencing urinary hesitancy for the past 2 to 3 years. 1. Abdominal distention, severe bilateral hydronephrosis, large amount of urinary retention -Status post Mercer insertion large amount of urine was obtained 2. Acute kidney injury 3. Hypokalemia/hypocalcemia, hyperchloremia 4. Metabolic acidosis 5. Possible BPH 6. Severe bilateral hydronephrosis 7. Hypertension 8. Schizophrenia Plan of care: Admit patient for further evaluation and treatment Urology consultation in place Keep Mercer to bedside drainage I's and O's Monitor [...] present care at 0229 at 1514 RPT #:[id number] END OF REPORT [facility] 2022-10-19 20:14:00 [facility] ([facility] Nephrology Progress Note REPORT#:[id number] REPORT STATUS: Signed DATE:10/19/22 TIME: 2013 PATIENT: MATHEW CASTILLO UNIT #: [id number] ROOM/BED: [place] [address] : 58 AGE: 62 SEX: M ATTEND: Salinas Alba MD ADM AUTHOR: Toby Koehler MD * ALL edits or amendments must be made on the electronic/computer document * Subjective Chief complaint: Concern for ruptured ureter HPI: The patient seen and examined. Resting in bed, denies any N/V/D, tolerating PO intake w/o any issue. Mercer to gravity, good UOP. Objective General VS/I [...] % (Auto) (14.0 - 32.0 %) 15.7 Culberson % (Auto) (4.8 - 9.0 %) 8.5 Eos % (Auto) (0.3 - 3.7 %) 6.0 H Baso % (Auto) (0.0 - 2.0 %) 0.7 Neut # (Auto) (2.0 - 7.6 x10 3/uL) 6.09 Lymph # (Auto) (1.0 - 3.8 x10 3/uL) 1.48 Culberson # (Auto) (0.1 - 0.8 x10 3/uL) [...] pH (5.0 - 7.0) 5.0 Ur Specific [place] (1.005 - 1.030) 1.015 Urine Protein (NEGATIVE) [...] CHANDRA (Resolved) -Renal function improved and wnl, mercer to gravity, on bicarb gtt, will d/c now. -2/2 post-obstrucitve uropathy, monitor for post-obstructive diuresis. -UA, urine lytes requested -Per Urology note: Reportedly the patient had 3L of urine in his bladder. CT abdomen from [place] showed that the patient has a very [...] post-obstructive diuresis and electrolyte imbalance Urinary Retention/BPH -Mercer to gravity, Urology following, on Tamsulosin -Per Urology note: Reportedly the patient had 3L of urine in his bladder. CT abdomen from [place] showed that the patient has a very [...] Schizophrenia -Home medications resumed at 2148 RPT #:[id number] END OF REPORT [facility] 2022-10-18 20:26:00 [facility]) Internal Medicine Prog. Note REPORT#:[id number] REPORT STATUS: Signed DATE:10/18/22 TIME: 2025 PATIENT: MATHEW CASTILLO UNIT #: [id number] ROOM/BED: [place] [address] : 58 AGE: 62 SEX: M ATTEND: Salinas Alba MD ADM AUTHOR: Sofia Cheng NP * ALL edits or amendments must be made on the electronic/computer document * Subjective Chief complaint: Abdominal distention, hydronephrosis HPI: 62-year-old male with last medical history of, BPH, transferred from [place] for urology evaluation and treatment secondary to [...] fluid was removed within 10 minutes of Mercer insertion. Patient reports he has been experiencing [...] % (Auto) (14.0 - 32.0 %) 15.6 Culberson % (Auto) (4.8 - 9.0 %) 10.1 H Eos % (Auto) (0.3 - 3.7 %) 7.5 H Baso % (Auto) (0.0 - 2.0 %) 0.7 Neut # (Auto) (2.0 - 7.6 x10 3/uL) 5.53 Lymph # (Auto) (1.0 - 3.8 x10 3/uL) 1.39 Culberson # (Auto) (0.1 - 0.8 x10 3/uL) [...] RLQ tenderness, RUQ normal bowel sounds Genitourinary: mercer Extremities: moves all, no edema-all extremities, normal capillary refill, normal range of motion, normal sensory, normal motor function Neuro/TONSORIAL ARTIST: 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 Rupture of ureter Free Text DxA P Notes Free text DxA P notes: Assessment: 62-year-old male with last medical history of, BPH, transferred from [place] for urology evaluation and treatment secondary to [...] fluid was removed within 10 minutes of Mercer insertion. Patient reports he has been experiencing urinary hesitancy for the past 2 to 3 years. 1. Abdominal distention, severe bilateral hydronephrosis, large amount of urinary retention -Status post Mercer insertion large amount of urine was obtained 2. Acute kidney injury 3. Hypokalemia/hypocalcemia, hyperchloremia 4. Metabolic acidosis 5. Possible BPH 6. Severe bilateral hydronephrosis 7. Hypertension 8. Schizophrenia Plan of care: Admit patient for further evaluation and treatment Urology consultation in place Keep Mercer to bedside drainage I's and O's Monitor [...] and supportive care at 2012 at 1301 [facility] #:[id number] END OF REPORT [facility] 2022-10-18 17:48:00 [facility] ([facility]) Nephrology Progress Note REPORT#:[id number] REPORT STATUS: Signed DATE:10/18/22 TIME: 1747 PATIENT: MATHEW CASTILLO UNIT #: [id number] ROOM/BED: [place] [address] : 58 AGE: 62 SEX: M ATTEND: Salinas Alba MD ADM AUTHOR: Carmen Kemp * ALL edits or amendments must be made on the electronic/computer document * See Addendum Carmen Kemp 10/18/221747: Subjective Chief complaint: Concern for ruptured ureter HPI: The patient seen and examined. Resting in bed, denies any N/V/D, tolerating PO intake w/o any issue. Mercer to gravity, good UOP. Review of Systems [...] % (Auto) (14.0 - 32.0 %) 15.6 Culberson % (Auto) (4.8 - 9.0 %) 10.1 H Eos % (Auto) (0.3 - 3.7 %) 7.5 H Baso % (Auto) (0.0 - 2.0 %) 0.7 Neut # (Auto) (2.0 - 7.6 x10 3/uL) 5.53 Lymph # (Auto) (1.0 - 3.8 x10 3/uL) 1.39 Culberson # (Auto) (0.1 - 0.8 x10 3/uL) [...] CHANDRA (Resolved) -Renal function improved and wnl, mercer to gravity, on bicarb gtt, will d/c now. -2/2 post-obstrucitve uropathy, monitor for post-obstructive diuresis. -UA, urine lytes requested -Per Urology note: Reportedly the patient had 3L of urine in his bladder. CT abdomen from [place] showed that the patient has a very [...] post-obstructive diuresis and electrolyte imbalance Urinary Retention/BPH -Mercer to gravity, Urology following, on Tamsulosin -Per Urology note: Reportedly the patient had 3L of urine in his bladder. CT abdomen from [place] showed that the patient has a very [...] Patient examined Renal function improved and wnl, mercer to gravity, off bicarb drip -2/2 post-obstrucitve uropathy, monitor for post-obstructive diuresis, check lytes in am. urology evaluation noted. Agree with above A/P at 1750 at 193 Addendum 1: 10/18/221936 by Toby Koehler MD K and magnesium supplementation. at 1937 RPT #:[id number] END OF REPORT [facility] 2022-10-17 22:43:00 [facility] Internal Medicine Prog. Note REPORT#:[id number] REPORT STATUS: Signed DATE:10/17/22 TIME: 2242 PATIENT: MATHEW CASTILLO UNIT #: [id number] [address]: [address] : 58 AGE: 62 SEX: M ATTEND: Salinas Alba MD ADM AUTHOR: Sofia Cheng NP * ALL edits or amendments must be made on the electronic/computer document * Subjective Chief complaint: Abdominal distention, hydronephrosis HPI: 62-year-old male with last medical history of, BPH, transferred from [place] for urology evaluation and treatment secondary to [...] fluid was removed within 10 minutes of Mercer insertion. Patient reports he has been experiencing [...] Delivery Room air 10/17 2013 Temp 37.5 07/13 2014 Pulse 83 10/17 2013 Resp 16 10/17 [...] (Auto) (14.0 - 32.0 %) 10.6 L Culberson % (Auto) (4.8 - 9.0 %) 12.8 H Eos % (Auto) (0.3 - 3.7 %) 2.7 Baso % (Auto) (0.0 - 2.0 %) 0.4 Neut # (Auto) (2.0 - 7.6 x10 3/uL) 8.23 H Lymph # (Auto) (1.0 - 3.8 x10 3/uL) 1.22 Culberson # (Auto) (0.1 - 0.8 x10 3/uL) [...] RLQ tenderness, RUQ normal bowel sounds Genitourinary: mercer Extremities: moves all, no edema-all extremities, normal capillary refill, normal range of motion, normal sensory, normal motor function Neuro/TONSORIAL ARTIST: 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 Rupture of ureter Free Text DxA P Notes Free text DxA P notes: Assessment: 62-year-old male with last medical history of, BPH, transferred from [place] for urology evaluation and treatment secondary to [...] fluid was removed within 10 minutes of Mercer insertion. Patient reports he has been experiencing urinary hesitancy for the past 2 to 3 years. 1. Abdominal distention, severe bilateral hydronephrosis, large amount of urinary retention -Status post Mercer insertion large amount of urine was obtained 2. Acute kidney injury 3. Hypokalemia/hypocalcemia, hyperchloremia 4. Metabolic acidosis 5. Possible BPH 6. Severe bilateral hydronephrosis 7. Hypertension 8. Schizophrenia Plan of care: Admit patient for further evaluation and treatment Urology consultation in place Keep Mercer to bedside drainage I's and O's Monitor [...] supportive care at 0210 at 1300 RPT #:[id number] END OF REPORT [facility] 2022-10-17 17:41:00 [facility]) Urology Progress Note REPORT#:[id number] REPORT STATUS: Signed DATE:10/17/22 TIME: 1740 PATIENT: MATHEW CASTILLO UNIT #: [id number] ROOM/BED: [place] [address] : 58 AGE: 62 SEX: M ATTEND: Salinas Alba MD ADM AUTHOR: Dave Del Toro MD * ALL edits or amendments must [...] (Auto) (14.0 - 32.0 %) 10.6 L Cul[place] % (Auto) (4.8 - 9.0 %) 12.8 H Eos % (Auto) (0.3 - 3.7 %) 2.7 Baso % (Auto) (0.0 - 2.0 %) 0.4 Neut # (Auto) (2.0 - 7.6 x10 3/uL) 8.23 H Lymph # (Auto) (1.0 - 3.8 x10 3/uL) 1.22 Culberson # (Auto) (0.1 - 0.8 x10 3/uL) [...] F/ U outpt ofr cystoscopy. Home with mercer at 1742 RPT #:[id number] END OF REPORT [facility] 2022-10-17 13:46:00 [facility] Nephrology Progress Note REPORT#:[id number] REPORT STATUS: Signed DATE:10/17/22 TIME: 1346 PATIENT: MATHEW CASTILLO UNIT #: [id number] ROOM/BED: [place] [address] : 58 AGE: 62 SEX: M ATTEND: Salinas Alba MD ADM AUTHOR: Carmen Kemp * ALL edits or amendments must be made on the electronic/computer document * Carmen Kemp 10/17/22 1346: Subjective Chief complaint: Concern for ruptured ureter HPI: The patient seen and examined. Resting in bed, denies any N/V/D, tolerating PO intake w/o any issue. Mercer to gravity, good UOP. Review of Systems [...] (Auto) (14.0 - 32.0 %) 10.6 L Culberson % (Auto) (4.8 - 9.0 %) 12.8 H Eos % (Auto) (0.3 - 3.7 %) 2.7 Baso % (Auto) (0.0 - 2.0 %) 0.4 Neut # (Auto) (2.0 - 7.6 x10 3/uL) 8.23 H Lymph # (Auto) (1.0 - 3.8 x10 3/uL) 1.22 [place]on # (Auto) (0.1 - 0.8 x10 3/uL) [...] CHANDRA (Resolved) -Renal function improved and wnl, mercer to gravity, on bicarb gtt, will d/c now. -2/2 post-obstrucitve uropathy, monitor for post-obstructive diuresis. -UA, urine lytes requested -Per Urology note: Reportedly the patient had 3L of urine in his bladder. CT abdomen from [place] showed that the patient has a very [...] post-obstructive diuresis and electrolyte imbalance Urinary Retention/BPH -Mercer to gravity, Urology following, on Tamsulosin -Per Urology note: Reportedly the patient had 3L of urine in his bladder. CT abdomen from [place] showed that the patient has a very [...] Patient examined Renal function improved and wnl, mercer to gravity, off bicarb drip -2/2 post-obstrucitve uropathy, monitor for post-obstructive diuresis, check lytes in am. urology evaluation noted. Agree with above A/P at 1759 at 2234 [facility] #:[id number] END OF REPORT [facility] 2022-10-16 15:13:00 [id number] [place] [id number] PATIENT NAME: MATHEW CASTILLO ADMIT DATE: 10/16/22 ACCOUNT NO: [id number] ROOM NO: [id number] AGE: 62 REPORT TYPE: CONSULTATION REPORT SEX: M ADMITTING PHYSICIAN:Salinas Alba MD ATTENDING PHYSICIAN:Salinas Alba MD CONSULTATION DATE:10/16/2022 REASON FOR CONSULTATION: Hydronephrosis, urinary retention. HISTORY OF PRESENT ILLNESS: This is a 62-year-old male with a history of schizophrenia who was sent in from [place]. He had reportedly almost 3 liters of [...] scan of the abdomen and pelvis from [place]. The patient has a very large distended [...] PATIENT NAME: MATHEW CASTILLO Dictated By: Dave Del Toro MD Date Dictated: 10/16/2022 15:13:22 Date Transcribed: 10/16/2022 16:06:29 /JENNI Receipt ID: [id number] Authenticated and Edited by Dave Del Toro MD On 11/12/22 1:37:06 PM at 0138 PATIENT NAME: MATHEW CASTILLO SINCERE [facility] 2022-10-16 12:39:00 [facility] ([facility]) Nephrology Consultation Note REPORT#:[id number] REPORT STATUS: Signed DATE:10/16/22 TIME: 1239 PATIENT: MATHEW CASTILLO UNIT #: [id number] ROOM/BED: [place] [id number] : [birth year] AGE: 62 SEX: M ATTEND: [...] Friday who took him to ER in [place]. He had CT abdomen which revealed b/l hydronephrosis and concern for possible ureteral rupture. He was transferred to [facility] for Urology evaluation. Initial VS [...] resting in bed, breathing comfortably on RA. Mercer to gravity w/ good UOP, states abdominal [...] 10/16/22 10/16/22 Strength: 10 MG TAB [id number] Current Hospital Medications: Anti-Infective Agents Sig/Mark Start [...] (Auto) (14.0 - 32.0 %) 3.8 L Culberson % (Auto) (4.8 - 9.0 %) 13.6 H Eos % (Auto) (0.3 - 3.7 %) 0.4 Baso % (Auto) (0.0 - 2.0 %) 0.2 Neut # (Auto) (2.0 - 7.6 x10 3/uL) 8.96 H Lymph # (Auto) (1.0 - 3.8 x10 3/uL) 0.42 L Culberson # (Auto) (0.1 - 0.8 x10 3/uL) [...] Assessment and Plan: CHANDRA -2/2 post-obstrucitve uropathy, mercer to gravity, monitor for post-obstructive diuresis. -Repeat labs, renal function improving, on IVF w/ bicarb per primary team -UA, urine lytes requested -Per Urology note: Reportedly the patient had 3L of urine in his bladder. CT abdomen from [place] showed that the patient has a very [...] post-obstructive diuresis and electrolyte imbalance Urinary Retention/BPH -Mercer to gravity, Urology following, on Tamsulosin -Per Urology note: Reportedly the patient had 3L of urine in his bladder. CT abdomen from [place] showed that the patient has a very [...] patient's nurse, and . Toby Koehler 10/16/22 7012: Attestations Physician Attestation Reviewed findings plan: Patient examined 62 years old male with PMH significant for schizophrenia, HTN, BPH, current everyday smoker. The patient states that on Friday last week, he noted abdominal distention, associated w/ pain and was unable to urinate. He was seen by his daughter Friday who took him to ER in [place]. He had CT abdomen which revealed b/l hydronephrosis and concern for possible ureteral rupture. He was transferred to [facility] for Urology evaluation. Initial VS [...] evaluation noted, Agree with above A/P at 1906 at 4791 RPT #:[id number] END OF REPORT [facility] 2022-10-16 11:15:00 [facility] ([facility]) History Physical - Adult REPORT#:[id number] REPORT STATUS: Signed DATE:10/16/22 TIME: 1115 PATIENT: MATHEW CASTILLO UNIT #: [id number] ROOM/BED: [place] [id number] : 58 AGE: 62 SEX: M ATTEND: Salinas Alba MD ADM AUTHOR: Sofia Cheng NP * ALL edits or amendments must be made on the electronic/computer document * History of Present Illness HPI Chief complaint: Abdominal distention, hydronephrosis HPI: 62-year-old male with last medical history of, BPH, transferred from [place] for urology evaluation and treatment secondary to [...] fluid was removed within 10 minutes of Mercer insertion. Patient reports he has been experiencing [...] RLQ tenderness, RUQ normal bowel sounds Genitourinary: mercer Extremities: moves all, no edema-all extremities, normal capillary refill, normal range of motion, normal sensory, normal motor function Neuro/TONSORIAL ARTIST: alert, oriented X 3 Skin: dry, intact, [...] (Auto) (14.0 - 32.0 %) 3.8 L Culberson % (Auto) (4.8 - 9.0 %) 13.6 H Eos % (Auto) (0.3 - 3.7 %) 0.4 Baso % (Auto) (0.0 - 2.0 %) 0.2 Neut # (Auto) (2.0 - 7.6 x10 3/uL) 8.96 H Lymph # (Auto) (1.0 - 3.8 x10 3/uL) 0.42 L Culberson # (Auto) (0.1 - 0.8 x10 3/uL) [...] last medical history of, BPH, transferred from [place] for urology evaluation and treatment secondary to [...] fluid was removed within 10 minutes of Mercer insertion. Patient reports he has been experiencing urinary hesitancy for the past 2 to 3 years. 1. Abdominal distention, severe bilateral hydronephrosis, large amount of urinary retention -Status post Mercer insertion large amount of urine was obtained 2. Acute kidney injury 3. Hypokalemia/hypocalcemia, hyperchloremia 4. Metabolic acidosis 5. Possible BPH 6. Severe bilateral hydronephrosis 7. Hypertension 8. Schizophrenia Plan of care: Admit patient for further evaluation and treatment Urology consultation in place Keep Mercer to bedside drainage I's and O's Monitor renal function Nephrology consultation Replace electrolytes Start tamsulosin Bicarb drip started Repeat CT of the abdomen and pelvis if needed Repeat labs Further recommendation based on patient's clinical course at 2063 at 8445 RPT #:[id number] END OF REPORT [facility] 2022-10-16 03:54:00 [facility] ([facility]) EMERGENCY PROVIDER REPORT REPORT#:[id number] REPORT STATUS: Signed DATE:10/16/22 TIME: 0354 PATIENT: MATHEW CASTILLO UNIT #: [id number] [facility] AGE: 62 SEX: M PCP PHYS: No [...] Pulse Ox 96 / 0330 B/P 146/80 07/ 0330 B/P Mean 107 / 0330 Pulse [...] (Auto) (14.0 - 32.0 %) 3.8 L Culberson % (Auto) (4.8 - 9.0 %) 13.6 H Eos % (Auto) (0.3 - 3.7 %) 0.4 Baso % (Auto) (0.0 - 2.0 %) 0.2 Neut # (Auto) (2.0 - 7.6 x10 3/uL) 8.96 H Lymph # (Auto) (1.0 - 3.8 x10 3/uL) 0.42 L Culberson # (Auto) (0.1 - 0.8 x10 3/uL) [...] [phone] Consultation Consultation Referral/Consult Name Dave Del Toro MD Information Resources Director Called Urology Information Resources Director Discussed with residential sales consultant Requested Call Time 0345 Requested [...] Room air 10/168 Temp 37.1 10/16 0308 Resp 18 10/16 0308 All vital signs available at the time of this entry have been reviewed. Clinical Impression Clinical Impression Primary Impression: Rupture of ureter Disposition Decision Hospitalize Hosp Physician Name Salinas Alba MD [facility] Physician Hospitalist Request Time [...] for administrative purposes only. at 1907 RPT #:[id number] END OF REPORT [facility]
[2025-01-04] MEDS ORDERED: IPRATROPIUM BROM 0.5MG/2.5ML ONE (18:43)
[2025-01-04] MEDS ORDERED: ALBUTEROL 2.5 MG/3 ML NEB SOL ONE (18:43)
[2025-01-04] MEDS ORDERED: predniSONE 20 MG TAB ONE (18:43)
--- NOTE | 2025-01-04 19:17 | RAD REPORT ---
EXAMINATION: ONE VIEW CHEST XR CLINICAL INDICATION: Male, 64 years old.,COUGH TECHNIQUE: Frontal chest projection is submitted. Examination is limited by patient positioning and t echnique. COMPARISON: 01/03/2025 FINDINGS: The lungs are well inflated and clear. No pneumothorax or sizable effusion. The heart is normal in s ize. Mediastinal contours are unremarkable. IMPRESSION: No acute intrathoracic abnormalities.
--- NOTE | 2025-01-04 19:27 | EDPHYS ---
Physician Documentation [facility] Name: Mathew Porter Age: 64 yrs Sex: Male : 1960 Arrival Date: 01/04/2025 Time: 17:33 Bed 12 Private MD: ED Physician Wilbert Barragan HPI: 01/04 20:00 This 64 yrs old Male presents to ER via Ambulatory with complaints of Shortness Of kb Breath, Cough, Wheezing < 1 Year. 20:00 Patient is a 64-year-old male who presents for shortness of breath and cough that have kb been ongoing for 3 months. Denies fever. States he came in today because his daughter made him.. Historical: - Allergies: 17:59 NKA; iw - PMHx: 17:59 Schizophrenia; COPD; iw - PSHx: 17:59 Urolift; iw - Immunization history:: Adult Immunizations. - Infectious Disease History:: Denies. - Social history:: Smoking status: Patient reports the use of cigarette tobacco products, Patient/guardian denies using tobacco, Stopped _ months ago 3. ROS: 20:00 Constitutional: As per HPI kb Exam: 20:00 Constitutional: This is a well developed, well nourished patient who is awake, alert, kb and in no acute distress. Head/Face: Normocephalic, atraumatic. ENT: Moist Mucous membranes Cardiovascular: Regular rate Respiratory: Respirations even and unlabored. No increased work of breathing. Talking in full sentences Skin: Warm, dry with normal turgor. Normal color. MS/ Extremity: Pulses equal, no cyanosis. Neurovascular intact. Full, normal range of motion. Neuro: Awake and alert, GCS 15, oriented to person, place, time, and situation. Vital Signs: 17:58 BP 144 / 105; Pulse 68; Resp 19; Temp 97.1; Pulse Ox 95% on R/A; Weight 67.13 kg; iw Height 5 ft. 9 in. ; 19:38 BP 141 / 86; Pulse 69; Resp 18 S; Temp 98.3; Pulse Ox 98% ; Pain 0/10; kt5 17:58 Body Mass Index 21.86 (67.13 kg, 175.26 cm) iw 19:38 Pain Scale: Adult kt5 MDM: 17:37 Medical Screening Exam initiated kb 20:13 Differential diagnosis: Bronchitis Chronic Obstructive Pulmonary Disease pneumonia. kb Data reviewed: vital signs, nurses notes. I considered the following discharge prescriptions or medication management in the emergency department I discussed and recommended Over The Counter medications, Antibiotics: At this time antibiotics are not recommended. Test considered but Not performed: Labs: COVID and flu test considered but would not change plan of treatment. Counseling: I had a detailed discussion with the patient and/or guardian regarding the historical points, exam findings, and any diagnostic results supporting the discharge/admit diagnosis, radiology results, the need for outpatient follow up, a family practitioner, to return to the emergency department if symptoms worsen or persist or if there are any questions or concerns that arise at home. 01/04 17:38 Order name: Chest Single View XRAY; Complete Time: 19:19 kb Administered Medications: 18:52 Drug: predniSONE PO 40 mg PO once Route: PO; af3 19:19 Follow up: Response: No adverse reaction; Marked relief of symptoms kt5 18:52 Drug: Albuterol Inhalation 2.5 mg Inhalation once Route: Inhalation; af3 19:20 Follow up: Response: No adverse reaction; Marked relief of symptoms kt5 18:52 Drug: Ipratropium Inhalation Aerosol 0.5 mg Inhalation once Route: Inhalation; af3 19:19 Follow up: Response: No adverse reaction; Marked relief of symptoms kt5 Disposition: 01/05 07:42 I was immediately available on-site in the Emergency Department for consultation in the ms3 care of the patient. Disposition Summary: 01/04/25 19:26 Discharge Ordered Notes: Location: Home Condition: Stable Diagnosis - COPD/ Chronic obstructive pulmonary disease with (acute) exacerbation kb Followup: kb - With: Private Physician - When: 2 - 3 days - Reason: Recheck today's complaints, Continuance of care, Re-evaluation by your physician Followup: kb - With: Emergency Department - When: As needed - Reason: Worsening of condition Discharge Instructions: - Discharge Summary Sheet kb - Chronic Obstructive Pulmonary Disease Exacerbation kb Forms: - Medication Reconciliation Form kb - Antibiotic Education kb - Prescription Opioid Use kb - Patient Portal Instructions kb - Leadership Thank You Letter kb Prescriptions: - albuterol sulfate 90 mcg/actuation Inhalation HFA Aerosol Inhaler - inhale 2 puff INHALATION route every 4 to 6 hours as needed for shortness of kb breath or wheezing; 1 Unspecified; Refills: 0, Product Selection Permitted - Prednisone 20 mg Oral Tablet - take 1 tablet ORAL route once daily for 5 days; 5 tablet; Refills: 0, Product kb Selection Permitted Signatures: Dispatcher [employer] Brit Haley, DATA ENTRY SUPERVISOR-C DATA ENTRY SUPERVISOR-CkLolis Edge, RN RN iw Wilbert Barragan DO DO ms3 Sharon Arndt RN RN af3 Halley Abbott RN kt5
--- NOTE | 2025-01-04 19:27 | ER ---
Nurse's Notes [facility] Name: Mathew Porter Age: 64 yrs Sex: Male : 1960 Arrival Date: 01/04/2025 Time: 17:33 Bed 12 Private MD: Diagnosis: COPD/ Chronic obstructive pulmonary disease with (acute) exacerbation Presentation: 01/04 17:58 Chief complaint: Patient states: SOB, can't get a good breath, has been feeling this iw way since September after his surgery, hx of COPD. Coronavirus screen: Client presents with at least one sign or symptom that may indicate coronavirus-19. Ebola Screen: No symptoms or risks identified at this time. Initial Sepsis Screen: Does the patient meet any 2 criteria? No. Patient's initial sepsis screen is negative. Does the patient have a suspected source of infection? No. Patient's initial sepsis screen is negative. Risk Assessment: Do you want to hurt yourself or someone else? Patient reports no desire to harm self or others. Onset of symptoms was September 2024. 17:58 Method Of Arrival: Ambulatory iw 17:58 Acuity: JAMILA 4 iw Triage Assessment: 19:51 Respiratory: Reports. kt5 Historical: - Allergies: 17:59 NKA; iw - PMHx: 17:59 Schizophrenia; COPD; iw - PSHx: 17:59 Urolift; iw - Immunization history:: Adult Immunizations. - Infectious Disease History:: Denies. - Social history:: Smoking status: Patient reports the use of cigarette tobacco products, Patient/guardian denies using tobacco, Stopped _ months ago 3. Screenin:30 [facility] ED Fall Risk Assessment (Adult) History of falling in the last 3 months, af3 including since admission No falls in past 3 months (0 pts) Confusion or Disorientation No (0 pts) Intoxicated or Sedated No (0 pts) Impaired Gait No (0 pts) Mobility Assist Device Used No (0 pt) Altered Elimination No (0 pt) Score/Fall Risk Level 0 - 2 = Low Risk Oriented to surroundings, Maintained a safe environment, Educated pt \T\ family on fall prevention, incl call for assistance when getting out of bed. Abuse screen: Denies threats or abuse. Denies injuries from another. Nutritional screening: No deficits noted. Tuberculosis screening: No symptoms or risk factors identified. Assessment: 18:30 General: Appears in no apparent distress. comfortable, well groomed, well developed, af3 Behavior is calm, cooperative, appropriate for age. Pain: Denies pain. Neuro: Level of Consciousness is awake, alert, obeys commands, Oriented to person, place, time, situation, Appropriate for age. Cardiovascular: Rhythm is sinus rhythm. Respiratory: Airway is patent Respiratory effort is even, unlabored, Respiratory pattern is regular, symmetrical. 19:04 General: received report from staff physical therapy assistant sharon, all questions answered. kt5 19:20 Reassessment: Patient appears in no apparent distress at this time. Patient and/or kt5 family updated on plan of care and expected duration. Pain level reassessed. Patient is alert, oriented x 3, equal unlabored respirations, skin warm/dry/pink. Patient states feeling better. Patient states symptoms have improved. 19:52 Respiratory: Airway is patent Respiratory effort is even, unlabored, Respiratory kt5 pattern is regular, symmetrical, Breath sounds are clear bilaterally. clear at d/c. Vital Signs: 17:58 BP 144 / 105; Pulse 68; Resp 19; Temp 97.1; Pulse Ox 95% on R/A; Weight 67.13 kg; iw Height 5 ft. 9 in. ; 19:38 BP 141 / 86; Pulse 69; Resp 18 S; Temp 98.3; Pulse Ox 98% ; Pain 0/10; kt5 17:58 Body Mass Index 21.86 (67.13 kg, 175.26 cm) iw 19:38 Pain Scale: Adult kt5 ED Course: 17:36 Patient arrived in ED. im 17:37 Brit Zapata FNP-C is PHCP. kb 17:37 Wlibert Barragan DO is Attending Physician. kb 17:59 Triage completed. iw 18:00 Arm band placed on. iw 18:24 Sharon Arndt, DEENA is Primary Nurse. af3 18:30 Patient has correct armband on for positive identification. Bed in low position. Call af3 light in reach. Provided Education on: call light use . 18:30 No provider procedures requiring assistance completed. af3 18:44 Chest Single View XRAY In Process Unspecified. EDMS Administered Medications: 18:52 Drug: predniSONE PO 40 mg PO once Route: PO; af3 19:19 Follow up: Response: No adverse reaction; Marked relief of symptoms kt5 18:52 Drug: Albuterol Inhalation 2.5 mg Inhalation once Route: Inhalation; af3 19:20 Follow up: Response: No adverse reaction; Marked relief of symptoms kt5 18:52 Drug: Ipratropium Inhalation Aerosol 0.5 mg Inhalation once Route: Inhalation; af3 19:19 Follow up: Response: No adverse reaction; Marked relief of symptoms kt5 Medication: 18:30 VIS not applicable for this client. af3 Outcome: 19:26 Discharge ordered by MD. mccurdy 19:38 Discharged to home ambulatory, with family, kt5 19:38 Condition: improved 19:38 Discharge instructions given to patient, family, Instructed on discharge instructions, follow up and referral plans. Demonstrated understanding of instructions, follow-up care, medications, Prescriptions given X 2, 19:53 Patient left the ED. kt5 Signatures: Dispatcher [employer] EDMS Brit Zapata, VULCANIZER RUBBER PLATE-C VULCANIZER RUBBER PLATE-Lolis Huntley RN RN iw Arlene Rodríguez Ashley, RN RN af3 Halley Abbott, DEENA RN kt5 Corrections: (The following items were deleted from the chart) 18:00 17:58 BP 144 / 105; Pulse 68bpm; Resp 19bpm; iw iw
[2025-01-04 20:03] VITALS: BP 141/86; TEMP 98.3; O2SAT 98
== END 2025-01-04 19:53 | disposition home or self-care (01) ==
LOC: ER 17:33
DX: J44.1 Chronic obstructive pulmonary disease with (acute) exacerbation (principal); Z87.891 Personal history of nicotine dependence
CPT/HCPCS: 71045; 99284; J7512; J7613; J7644